=== PATIENT | female | born 1960 | race Caucasian/White ===

== ENCOUNTER → 2016-03-14 | Outpatient (CLI) | payer BC ==
[~2016-03-14] MED LIST: ALBU1AER9 INH; ALPR-411 PO; AMT/50 PO; ASPI-461 PO; ATOR-26 PO; CHOL100010 PO; CYAN100048 PO; DOXYCYCLINE PO; ERGO500037 PO; FLUT0.15; FLX10 PO; INSU1.2I SQ; LEVO175T3 PO; LISI-787 PO; METF1000 PO; METO25TA3 PO; MOME50SP5; NVLG SQ; NVLGI7030 SC; PRAV20TA PO; PRLSR20 PO; RANI150T2 PO; RBTDAC10 PO; SITA100T3 PO; SUMA25TA12 PO; VENL37.593 PO
== END | disposition home or self-care (01) ==
LOC: C.CPL 10:04
PROVIDERS: ATTEND Obstetrics & Gynecology
DX: Z01.810 Encounter for preprocedural cardiovascular examination (principal); N95.0 Postmenopausal bleeding

== ENCOUNTER 2016-03-29 09:24 | Day surgery (SDC) | payer BC, OTHER ==
--- NOTE | 2016-03-17 10:24 | HISTORY & PHYSICAL EXAMINATION ---
DATE OF ADMISSION: 03/29/2016 CHIEF COMPLAINT: Vaginal bleeding, abnormal transvaginal ultrasound. HISTORY OF PRESENT ILLNESS: The patient is a 55-year-old nullip. Her general health is complicated by diabetes, high blood pressure, hypothyroidism and elevated cholesterol. She is on insulin and Toujeo to control the diabetes, diabetic about 10 years. Underwent menopause age 40, had no bleeding until recently she had 1-2 days of bleeding and some mild cramping. Transvaginal ultrasound was performed on 02/14/2016, showed an endometrial stripe of 5+ mm with fluid in the endometrial cavity, small fibroid. Presently being scheduled for an outpatient D and C. PAST SURGICAL HISTORY: She has had bilateral knee arthroscopies. She had a right shoulder arthroscopy. PAST MEDICAL HISTORY: Her medical condition is complicated by diabetes, high blood pressure, hypothyroidism and elevated cholesterol. ALLERGIES: SHE IS ALLERGIC TO ERYTHROMYCIN AND LATEX. SOCIAL HISTORY: No smoking. No excessive alcohol intake. Works for [employer]. FAMILY HISTORY: Mom at age 75 of bowel cancer. Father at age 63, ruptured aortic aneurysm. Three brothers and 2 sisters in good health. REVIEW OF SYSTEMS: She does have a history of migraine headaches. No history of frequent or severe ear infections, nosebleed, sore throats, kidney or bladder infections. PHYSICAL EXAMINATION: GENERAL: Well-developed, well-nourished 55-year-old white female, alert, oriented x3 and cooperative, no acute distress, appears her stated age. EYES: Conjunctivae are pink, sclerae white, no evidence of jaundice. EARS: Normal light reflex bilaterally. NOSE: Normal mucosa. Septum is midline. There are no polyps. THROAT: No erythema or evidence of infection. Teeth are in good state of repair. HEAD: Normocephalic, normal distribution of hair. NECK: Supple. Trachea midline. Thyroid is not enlarged. There is no adenopathy appreciated. Both carotids are of good intensity. CHEST: Clear to auscultation and percussion. No wheezes, rales or rhonchi appreciated. HEART: Regular rhythm. S1 and S2 are normal. BREASTS: Normal. ABDOMEN: Soft and nontender. PELVIC: Reveals atrophic vaginitis, normal appearing cervix. Uterus is normal size. There are no adnexal masses. MUSCULOSKELETAL: Reveals no calf tenderness. IMPRESSIONS OF THIS CASE: Diabetes, high blood pressure, hypothyroidism, elevated cholesterol, postmenopausal bleeding, abnormal transvaginal ultrasound. ANDREA
[2016-03-17 10:43] LABS: HEMATOCRIT 36.9 % (37-47); MEAN CELL VOLUME 88.3 fL (80-100); MEAN CORPUSCULAR HEMOGLOBIN 28.7 pg (25-34); MEAN CORPUSCULAR HGB CONC 32.5 g/dl (32-36); MEAN PLATELET VOLUME 10.8 fL (7.4-10.4); PLATELET COUNT 343 K/uL (130-400); RED BLOOD COUNT 4.18 M/uL (4.2-5.4); WHITE BLOOD COUNT 12.73 K/uL (4.8-10.8)
[2016-03-17 11:20] LABS: BASO % 0.3 %; BASO ABS # 0.04 K/uL (0-0.2); COMPLETE YES; EOS % 2.3 %; IG% 0.5 %; LYMPH % 40.3 %; LYMPH ABS # 5.13 K/uL (1.2-3.4); MONO % 4.6 %
[2016-03-22 09:24] VITALS: BMI 54.0
[~2016-03-29] VITALS: Ht 154.9 cm; Wt 133.2 kg
[~2016-03-29 09:24] MED LIST changes: -ALPR-411 PO; -CHOL100010 PO; -DOXYCYCLINE PO; +LACTATED RINGER'S 1000ML 1,000 ML IV SCH; -METO25TA3 PO; -MOME50SP5; -NVLGI7030 SC; -PRAV20TA PO; -RBTDAC10 PO; -SITA100T3 PO; -VENL37.593 PO
[2016-03-29] MEDS ORDERED: LIDOCAINE HCL 2% 2 ML VIAL (20MG/ML) ONE (09:53)
[2016-03-29] MEDS ORDERED: OXYTOCIN INJ 10 UNITS/ML VIAL ONE (09:53)
[2016-03-29] MEDS ORDERED: DEXAMETHASONE SOD INJ 4 MG/ML VIAL ONE (09:53)
[2016-03-29] MEDS ORDERED: KETOROLAC TROMETHAMINE 30 MG/ML VIAL ONE (09:53)
[2016-03-29] MEDS ORDERED: PROPOFOL IV EMULSION 10 MG/ML 20 ML VIAL IV ONE (09:53)
[2016-03-29] MEDS ORDERED: MIDAZOLAM HCL 1 MG/ML 2ML VIAL ONE (09:53)
[2016-03-29] MEDS ORDERED: FENTANYL CITRATE INJ 50 MCG/1 ML 2 ML VIAL ONE (09:53)
[2016-03-29] MEDS ORDERED: ONDANSETRON INJ 2 MG/ML 2 ML VIAL ONE (09:53)
[2016-03-29 10:08] VITALS: BP 140/71; PULSE 108; TEMP 36.7; O2SAT 95; Ht 154.9 cm; Wt 133.2 kg
[2016-03-29] MEDS ORDERED: NovoLIN-R INSULIN PER UNIT CHARGE ONE (10:11)
[2016-03-29] MEDS ORDERED: NURSING VERBAL MED ORDER ONE (10:15)
[2016-03-29] MEDS ORDERED: NovoLIN-R INSULIN PER UNIT CHARGE SQ SCH (10:15)
--- NOTE | 2016-03-29 10:41 | History & Physical Bridge Note ---
H&P Re-Evaluation Bridge Note: I have examined the patient, reviewed the History & Physical and in the interval since the performance of the History & Physical I have noted the following changes of clinical significance: No changes noted
[2016-03-29] MEDS ORDERED: LACTATED RINGER'S 1000ML 1,000 ML IV PRN (10:46)
[2016-03-29] MEDS ORDERED: ROCURONIUM BROMIDE 10 MG/ML 5 ML VIAL ONE (10:56)
[2016-03-29] MEDS ORDERED: ONDANSETRON INJ 2 MG/ML 2 ML VIAL IV PRN ×2 (11:00→11:45)
[2016-03-29] MEDS ORDERED: KETOROLAC TROMETHAMINE 30 MG/ML VIAL IV. PRN ×2 (11:00→11:45)
[2016-03-29] MEDS ORDERED: FENTANYL CITRATE INJ 50 MCG/1 ML 2 ML VIAL IV PRN (11:00)
[2016-03-29] MEDS ORDERED: SODIUM CHLORIDE 0.9% 1000ML 1,000 ML IV SCH (11:38)
--- NOTE | 2016-03-29 11:44 | [facility] Post Operative Brief Note ---
Immediate Operative Summary Operative Date Mar 29, 2016. Pre-Operative Diagnosis post menopausal bleeding Post-Operative Diagnosis uterus sounded to 8 cm Procedure(s) Performed dilatation of cervix sharp curettage of endometrial cavity Surgeon sundeep Electrical Engineer Mep Surgeon(s) none Estimated Blood Loss 5 ml Findings small amount of endometrial curettings Specimens uterine curettings Complication(s) None Disposition Recovery Room / PACU
[2016-03-29] MEDS ORDERED: HYDROCODONE/ACETAMOPHEN 5/325MG TAB PO PRN ×4 (11:45)
[2016-03-29] MEDS ORDERED: OXYCODONE/ACETAMINOPHEN 5-325 TAB PO PRN ×2 (11:45)
[2016-03-29] MEDS ORDERED: IBUPROFEN 600 MG TAB PO PRN (11:45)
--- NOTE | 2016-03-29 11:46 | Discharge Instructions ---
Discharge Instructions Admission Reason for Admission: Post Menopausal Bleeding Discharge Discharge Diagnosis / Problem: same as above Discharge Goals Goal(s): Routine recovery after surgery Activity Recommendations Activity Limitations: as noted below ACTIVITY RECOMMENDATIONS: * Avoid tampons, douching, hot tubs, pools, and intercourse until bleeding has stopped. * May shower as usual. * No strenuous activity for 24-48 hours. After 24-48 hours, you may do anything you feel like doing (driving and sports are okay). SPECIAL CARE INSTRUCTIONS: Special Diet: * Mild nausea may occur in the immediate post-operative period. * Take clear liquids such as tea, cola or bouillon until all nausea has subsided; you may then resume your normal diet. Special Care: * Light bleeding and vaginal spotting can last from a few days to 3-4 weeks. Call your doctor if bleeding becomes heavier than the heaviest part of your period. * Check your temperature twice a day for one week. If it goes above 100.4 degrees Fahrenheit (38.0 Celsius), notify your doctor. * Call your doctor's office for an appointment for 6 weeks after your surgery. FOLLOW-UP VISIT: Call your doctor's office for an appointment for 6 weeks after your surgery. . Current Hospital Diet Patient's current hospital diet: Discharge Diet Recommended Diet: Regular Diet Procedures Procedures Performed: dilatation of cervix sharp curettage of endometrial cavity Pending Studies Studies pending at discharge: no Medical Emergencies . Who to Call and When: Medical Emergencies: If at any time you feel your situation is an emergency, please call 911 immediately. . Non-Emergent Contact Non-Emergency issues call your: Box Feeder Call Non-Emergent contact if: temperature is above 100.5 . . "Provider Documentation" section prepared by Jeffrey Hudson. VTE Core Measure Inpt VTE Proph given/why not?: Treatment not indicated
--- NOTE | 2016-03-29 12:23 | OPERATIVE REPORT ---
DATE OF OPERATION: 03/29/2016 INDICATIONS FOR SURGERY: Postmenopausal bleeding, abnormal transvaginal ultrasound. PREOPERATIVE DIAGNOSIS: Postmenopausal bleeding, abnormal transvaginal ultrasound. POSTOPERATIVE DIAGNOSIS: Same. Uterus sounded to 8 cm. PROCEDURE: D\T\C. SURGEON: Dr. Hudson. ESTIMATED BLOOD LOSS: 5 mL. ANESTHESIA: General. OPERATIVE FINDINGS AND PROCEDURE: The patient was brought to the OR table, correctly identified by armband and conversation. General anesthesia was administered. Perineum and vagina were painted with Betadine paint, draped in usual sterile fashion. Weighted speculum was placed in the posterior vagina. Due to the patient's weight we had difficulty visualizing the cervix. We had to use a long weighted speculum along with retractor. I first emptied the bladder with metal catheter. I then grabbed the cervix at 12 o'clock sounded the uterus to 8 cm. Cervix was then dilated with graduated dilators. A small sharp serrated curette was placed in the uterine cavity. All 4 quadrants of the uterus were thoroughly and systematically cureted. This was productive of a small amount of solid tissue which was submitted for pathological evaluation. After thorough curettage of the entire endometrial cavity, the procedure was terminated. Instruments were removed. Hemostasis was good. The patient tolerated the procedure well. I attest to the content of the Intraoperative Record and any orders documented therein. Any exceptio ns are noted below.
--- NOTE | 2016-03-29 12:34 | Anesthesiology Progress Note ---
Anesthesia Post Op Note Date & Time Mar 29, 2016 at 12:33 Vital Signs Pain Intensity: 5 Vital Signs Past 12 Hours Date Time Temp Pulse Resp B/P Pulse Ox O2 Delivery O2 Flow Rate FiO2 03/29/16 12:25 36.6 85 17 157/67 99 Room Air 03/29/16 12:15 85 18 149/98 99 Room Air 03/29/16 12:05 82 16 152/84 100 Mask 10 03/29/16 11:55 36.3 93 16 141/80 100 Mask 10 03/29/16 10:08 36.7 108 22 140/71 95 Room Air Notes Mental Status: alert / awake / arousable, participated in evaluation Pt Amnestic to Procedure: Yes Nausea / Vomiting: adequately controlled Pain: adequately controlled Airway Patency, RR, SpO2: stable & adequate BP & HR: stable & adequate Hydration State: stable & adequate Anesthetic Complications: no major complications apparent
[2016-03-29 12:40] VITALS: BP 140/66; PULSE 75; TEMP 36.6; O2SAT 97
[2016-03-29 13:05] VITALS: BP 157/71; PULSE 87; O2SAT 97
[2016-03-29 13:25] VITALS: BP 149/73; PULSE 79; TEMP 36.9; O2SAT 97
[2016-11-22] MEDS ORDERED: METO25TA3 PO (10:15)
[2016-11-22] MEDS ORDERED: CHOL100010 PO (10:15)
[2016-11-22] MEDS ORDERED: DOXYCYCLINE PO (10:18)
== END 2016-03-29 13:30 | disposition home or self-care (01) ==
LOC: C.ACU 09:24
PROVIDERS: ATTEND Obstetrics & Gynecology
DX: D25.9 Leiomyoma of uterus, unspecified (principal); E11.9 Type 2 diabetes mellitus without complications; E78.00 Pure hypercholesterolemia, unspecified; E03.9 Hypothyroidism, unspecified; Z79.4 Long term (current) use of insulin; Z98.890 Other specified postprocedural states

== ENCOUNTER → 2016-03-30 | Day surgery (SDC) | payer BC ==
[~2016-03-30] MED LIST changes: +BUPIVACAINE 0.5 % 5 MG/1 ML MPF 30ML VIAL ONE; +CHOL100010 PO; +DOXYCYCLINE PO; -LACTATED RINGER'S 1000ML 1,000 ML IV SCH; +LIDOCAINE HCL 2% LOCAL 20 ML VIAL ONE; +METO25TA3 PO
== END | disposition home or self-care (01) ==
LOC: C.PAT 10:43 → EDSTATUS 13:00
PROVIDERS: ATTEND Obstetrics & Gynecology
DX: N95.0 Postmenopausal bleeding (principal)

== ENCOUNTER → 2016-04-01 | Outpatient (CLI) | payer BC ==
[~2016-04-01] MED LIST changes: -BUPIVACAINE 0.5 % 5 MG/1 ML MPF 30ML VIAL ONE; -LIDOCAINE HCL 2% LOCAL 20 ML VIAL ONE
[2016-04-01 10:41] LABS: HEMATOCRIT 35.9 % (37-47); MEAN CELL VOLUME 87.8 fL (80-100); MEAN CORPUSCULAR HEMOGLOBIN 28.9 pg (25-34); MEAN PLATELET VOLUME 10.6 fL (7.4-10.4); PLATELET COUNT 338 K/uL (130-400); RED BLOOD COUNT 4.09 M/uL (4.2-5.4)
[2016-04-01 11:16] LABS: MEAN CORPUSCULAR HGB CONC 32.9 g/dl (32-36)
[2016-04-01 11:19] LABS: BASO % 0.3 %; BASO ABS # 0.04 K/uL (0-0.2); COMPLETE YES; EOS % 2.1 %; IG% 0.5 %; LYMPH % 44.6 %; LYMPH ABS # 5.75 K/uL (1.2-3.4); MONO % 6.3 %; NEUT % 46.2 %
== END | disposition home or self-care (01) ==
LOC: C.LAB 10:13
PROVIDERS: ATTEND Family Medicine
DX: A08.4 Viral intestinal infection, unspecified (principal)

== ENCOUNTER → 2016-05-17 | Outpatient (CLI) | payer BC ==
--- NOTE | 2016-05-17 18:34 | DIAGNOSTIC IMAGING REPORT ---
SACRUM AND SACROILIAC JOINTS 3 VIEWS CLINICAL HISTORY: Fall. Low back pain. FINDINGS: 3 views of the sacrum and sacroiliac joints are correlated with pelvic CT dated 01/25/2015. The skeletal structures are osteopenic. There is no radiographic evidence of sacral fracture. Sclerotic degenerative change and mild vacuum phenomenon is seen involving the sacroiliac joints. No bony erosion is suspected. The remainder of the visualized bony pelvis appears intact. Enthesophytes arise from the anterior superior iliac spine bilaterally. Phleboliths are observed in the pelvis. IMPRESSION: 1. No acute bony abnormality is seen involving the sacrum or sacroiliac joints. 2. Degenerative change as above. Electronically signed by: Chilango Vora M.D. 05/17/2016 6:32 PM Dictated Date/Time: 05/17/2016 6:31 PM
--- NOTE | 2016-05-17 19:08 | DIAGNOSTIC IMAGING REPORT ---
LUMBAR SPINE 5 VIEWS CLINICAL HISTORY: Fall with low back pain. FINDINGS: Five views of the lumbar spine are correlated with abdominal CT dated 01/25/2015. The skeletal structures are osteopenic. There is no radiographic evidence of fracture or malalignment. Vertebral body height and alignment are maintained. The transverse and spinous processes are intact. There is no evidence of spondylolysis. Tiny anterior osteophytes are seen throughout. Minimal facet arthropathy is noted in the lower lumbar spine. The disc spaces appear preserved. The visualized bony pelvis appears intact. Mild sclerotic change is noted in the sacroiliac joints. There is a nonobstructed abdominal bowel gas pattern. Phleboliths are present in the pelvis. IMPRESSION: 1. No acute bony abnormality seen involving the lumbosacral spine. 2. Osteopenia and mild spondylotic change as above. Dictated: 05/17/2016 6:39 PM Transcribed: 05/17/2016 7:08 PM Jing Electronically signed by: Chilango Vora M.D. 05/17/2016 7:13 PM Dictated Date/Time: 05/17/2016 6:39 PM
== END | disposition home or self-care (01) ==
LOC: C.RAD 17:25
PROVIDERS: ATTEND Family Medicine
DX: E11.9 Type 2 diabetes mellitus without complications (principal); T14.8 Other injury of unspecified body region; W19.XXXA Unspecified fall, initial encounter; M85.88 Other specified disorders of bone density and structure, other site

== ENCOUNTER → 2016-05-26 | Outpatient (CLI) | payer BC ==
--- NOTE | 2016-05-26 18:14 | DIAGNOSTIC IMAGING REPORT ---
CHEST 2 VIEWS ROUTINE CLINICAL HISTORY: CHEST PAIN, WENT TO LAB FIRST COMPARISON STUDY: No previous studies for comparison. FINDINGS: The bones soft tissues and hemidiaphragms are normal. The cardiomediastinal silhouette is normal. The lungs are clear. The pulmonary vasculature is normal. IMPRESSION: Negative chest. Electronically signed by: Catrachito Magallanes M.D. 05/26/2016 6:13 PM Dictated Date/Time: 05/26/2016 6:12 PM
[2016-05-26 19:17] LABS: CKMB/CK RATIO 3.5 (0-3.0)
[2016-05-29 12:23] LABS: C-REACTIVE PROT HIGHSEN 4.4 MG/L
== END | disposition home or self-care (01) ==
LOC: C.RAD 17:39
PROVIDERS: ATTEND Family Medicine
DX: R07.9 Chest pain, unspecified (principal)

== ENCOUNTER → 2016-07-17 | Outpatient (CLI) | payer BC ==
--- NOTE | 2016-07-17 19:07 | DIAGNOSTIC IMAGING REPORT ---
CHEST 2 VIEWS ROUTINE CLINICAL HISTORY: Dyspnea, cough dyspnea COMPARISON STUDY: 05/26/2016 FINDINGS: The bones soft tissues and hemidiaphragms are normal. The cardiomediastinal silhouette is normal. The lungs are clear. The pulmonary vasculature is normal. IMPRESSION: Negative chest. Electronically signed by: Catrachito Magallanes M.D. 07/17/2016 7:06 PM Dictated Date/Time: 07/17/2016 7:05 PM
== END | disposition home or self-care (01) ==
LOC: C.RAD 18:47
PROVIDERS: ATTEND Family Medicine
DX: R05 Cough (principal); R06.00 Dyspnea, unspecified

== ENCOUNTER → 2016-12-06 | Day surgery (SDC) | payer BC ==
[2016-11-22 10:17] VITALS: BMI 54.0
[~2016-12-06] VITALS: Ht 154.9 cm; Wt 133.2 kg
[~2016-12-06] MED LIST changes: -ERGO500037 PO; +LIDOCAINE HCL 2% 2 ML VIAL (20MG/ML) ONE; +PROPOFOL IV EMULSION 10 MG/ML 20 ML VIAL IV ONE; +SODIUM CHLORIDE 0.9% 500ML 500 ML IV ONE
[2016-12-06 12:55] VITALS: Ht 154.9 cm; Wt 133.2 kg
[2016-12-06 13:11] VITALS: TEMP 37.1
--- NOTE | 2016-12-06 13:25 | Endo History and Physical ---
History & Physical Date of Service: Dec 06, 2016. Chief Complaint: family hx of colon cancer, mother Referring Physician: Dr. Langston History of Present Illness screening colonscopy; second exam, nothing found on initial exam per pt ( Dr Justin) Past Medical History Asthma, Anxiety, High Cholesterol, Hypertension, Thyroid Disease, Depression Past Surgical History Hx Cardiac Surgery: No Hx Internal Defibrillator: No Hx Pacemaker: No Hx Abdominal Surgery: Yes (D&C) Hx of Implantable Prosthesis: No Hx Post-Op Nausea and Vomiting: No Hx Cancer Surgery: No Hx Thoracic Surgery: No Hx Orthopedic: Yes (RT/LEFT KNEE ARTHROSCOPY, RT SHOULDER ARTHROSCOPY) Hx Urinary Tract Surgery: No Family History Polyp, IBD Social History Smoking Status: Never Smoker Hx Substance Use: No Hx Alcohol Use: No Allergies Coded Allergies: Amoxicillin (Verified Allergy, Intermediate, hives, 12/06/16) Latex1 -Allergic Contact Dermititis (Verified Allergy, Mild, RASH, 12/06/16 ) Sulfa Antibiotics (Verified Allergy, Mild, RASH, 12/06/16) Clarithromycin (Verified Adverse Reaction, Mild, HEART RACES, 12/06/16) Uncoded Allergies: NYQUIL NIGHTTIME COLD/FLU MEDICINE (Allergy, Mild, HIVES, 03/22/16) WHEAT BREAD (Adverse Reaction, Mild, itching and hives, 03/22/16) ARNOLD BREAD Current Medications Reported Home Medications Medications Dose Route/Sig Max Daily Dose Days Date Category Dose Instructions [Doxycycline] 1 Tab PO BID 11/22/16 Reported Vitamin D (Cholecalciferol) 1,000 Unit Tab 1 Tab PO QPM 11/22/16 Reported Toprol-Xl (Metoprolol Succinate) 25 Mg Tabcr 25 Mg PO HS 11/22/16 Reported Aspirin 81 Mg Tab 81 Mg PO QPM 03/22/16 Reported Vitamin B-12 (Cyanocobalamin) 1,000 Mcg Sub 1,000 Mcg PO QAM 03/22/16 Reported Novolog (Insulin Aspart) 100 Units/Ml Inj 45 Units SQ QID 03/22/16 Reported ALSO MAY INCREASE PER SLIDING SCALE Toujeo Solostar (Insulin Glargine) 300 Unit/Ml Inj 150 Units SQ QPM 03/22/16 Reported Levothyroxine Sodium 175 Mcg Tab 1 Tab PO QAM 01/04/15 Reported Zestoretic 20MG/12.5MG (HCTZ/Lisinopril) Tab 2 Tabs PO QAM 01/04/15 Reported Flonase Allergy Relief (Fluticasone Propionate (Nasal)) 50 Mcg/Act Spr 2 Sprays NA BID 01/04/15 Reported Lipitor (Atorvastatin Calcium) 80 Mg Tab 1 Tab PO HS 01/04/15 Reported Proair Hfa (Albuterol) Aers 1 Puff INH QID PRN 01/04/15 Reported Imitrex (Sumatriptan Succinate) 25 Mg Tab 25 Mg PO PRN PRN 01/04/15 Reported Ranitidine HCl 150 Mg Tab 150 Mg PO BID 08/11/13 Reported Cyclobenzaprine HCl 10 Mg Tab 10 Mg PO BID PRN 08/11/13 Reported Glucophage (Metformin Hcl) 1,000 Mg Tab 1,000 Mg PO BID 06/26/12 Reported Amitriptyline (Amitriptyline Hcl) 50 Mg Tab 100 Mg PO HS 05/28/09 Reported Prilosec (Omeprazole) 20 Mg Capcr 20 Mg PO QAM 05/28/09 Reported Vital Signs Weight (Kilograms): 133.18 Height (Feet): 5 Height (Inches): 1 Date Time Temp Pulse Resp B/P (MAP) Pulse Ox O2 Delivery O2 Flow Rate FiO2 12/06/16 13:11 37.1 108 20 159/64 (95) 95 Room Air Physical Exam AAOx3 Nls1s2 Lungs CTA Abd soft NT/ND + BS - CCE Assessment and Plan colonoscopy
--- NOTE | 2016-12-06 14:14 | GI REPORT ---
Procedure Date: 12/06/2016 1:30 PM Procedure: Colonoscopy Indications: Family history of colon cancer in a first-degree relative Medicines: Propofol per Anesthesia Complications: No immediate complications. Estimated blood loss: None. Estimated Blood Loss: Estimated blood loss: none. Procedure: Pre-Anesthesia Assessment: - Prior to the procedure, a History and Physical was performed, and patient medications and allergies were reviewed. The patient's tolerance of previous anesthesia was also reviewed. The risks and benefits of the procedure and the sedation options and risks were discussed with the patient. All questions were answered, and informed consent was obtained. Prior Anticoagulants: The patient has taken no previous anticoagulant or antiplatelet agents. ASA Grade Assessment: III - A patient with severe systemic disease. After reviewing the risks and benefits, the patient was deemed in satisfactory condition to undergo the procedure. After I obtained informed consent, the scope was passed under direct vision. Throughout the procedure, the patient's blood pressure, pulse, and oxygen saturations were monitored continuously. The On-site loaner was introduced through the anus and advanced to the cecum, identified by the appendiceal orifice, ileocecal valve and palpation. The colonoscopy was performed without difficulty. The patient tolerated the procedure well. The quality of the bowel preparation was good. Findings: The perianal and digital rectal examinations were normal. Pertinent negatives include normal sphincter tone, no palpable rectal lesions and no anal lesion or abnormality was detected. Many small-mouthed diverticula were found in the sigmoid colon. Non-bleeding internal hemorrhoids were found during retroflexion. The hemorrhoids were mild. The exam was otherwise without abnormality. The terminal ileum appeared normal. Impression: - Diverticulosis in the sigmoid colon. - Non-bleeding internal hemorrhoids. - The examination was otherwise normal. - The examined portion of the ileum was normal. - No specimens collected. Recommendation: - Discharge patient to home (ambulatory). - Resume regular diet. - Continue present medications. - Repeat colonoscopy in 5 years for surveillance. - Return to referring physician as previously scheduled. MD Aristides Munoz MD 12/06/2016 2:14:17 PM This report has been signed electronically. Note Initiated On: 12/06/2016 1:30 PM I attest to the content of the Intraoperative Record and orders documented therein, exceptions below
--- NOTE | 2016-12-06 14:17 | Discharge Instructions ---
Endoscopy Patient Instructions Date / Procedure(s) Performed Dec 06, 2016. Colonoscopy Allergy Information Coded Allergies: Amoxicillin (Verified Allergy, Intermediate, hives, 12/06/16) Latex1 -Allergic Contact Dermititis (Verified Allergy, Mild, RASH, 12/06/16 ) Sulfa Antibiotics (Verified Allergy, Mild, RASH, 12/06/16) Clarithromycin (Verified Adverse Reaction, Mild, HEART RACES, 12/06/16) Uncoded Allergies: NYQUIL NIGHTTIME COLD/FLU MEDICINE (Allergy, Mild, HIVES, 03/22/16) WHEAT BREAD (Adverse Reaction, Mild, itching and hives, 03/22/16) ARNOLD BREAD Discharge Date / Findings Dec 06, 2016. diverticulosis, hemorrhoids Medication Instructions Stopped Medication(s): stopped all supplements Restart Stopped Medication(s): Reported Home Medications Medications Dose Route/Sig Max Daily Dose Days Date Category Dose Instructions [Doxycycline] 1 Tab PO BID 11/22/16 Reported Vitamin D (Cholecalciferol) 1,000 Unit Tab 1 Tab PO QPM 11/22/16 Reported Toprol-Xl (Metoprolol Succinate) 25 Mg Tabcr 25 Mg PO HS 11/22/16 Reported Aspirin 81 Mg Tab 81 Mg PO QPM 03/22/16 Reported Vitamin B-12 (Cyanocobalamin) 1,000 Mcg Sub 1,000 Mcg PO QAM 03/22/16 Reported Novolog (Insulin Aspart) 100 Units/Ml Inj 45 Units SQ QID 03/22/16 Reported ALSO MAY INCREASE PER SLIDING SCALE Toujeo Solostar (Insulin Glargine) 300 Unit/Ml Inj 150 Units SQ QPM 03/22/16 Reported Levothyroxine Sodium 175 Mcg Tab 1 Tab PO QAM 01/04/15 Reported Zestoretic 20MG/12.5MG (HCTZ/Lisinopril) Tab 2 Tabs PO QAM 01/04/15 Reported Flonase Allergy Relief (Fluticasone Propionate (Nasal)) 50 Mcg/Act Spr 2 Sprays NA BID 01/04/15 Reported Lipitor (Atorvastatin Calcium) 80 Mg Tab 1 Tab PO HS 01/04/15 Reported Proair Hfa (Albuterol) Aers 1 Puff INH QID PRN 01/04/15 Reported Imitrex (Sumatriptan Succinate) 25 Mg Tab 25 Mg PO PRN PRN 01/04/15 Reported Ranitidine HCl 150 Mg Tab 150 Mg PO BID 08/11/13 Reported Cyclobenzaprine HCl 10 Mg Tab 10 Mg PO BID PRN 08/11/13 Reported Glucophage (Metformin Hcl) 1,000 Mg Tab 1,000 Mg PO BID 06/26/12 Reported Amitriptyline (Amitriptyline Hcl) 50 Mg Tab 100 Mg PO HS 05/28/09 Reported Prilosec (Omeprazole) 20 Mg Capcr 20 Mg PO QAM 05/28/09 Reported Reported Home Medications Medications Dose Route/Sig Max Daily Dose Days Date Category Dose Instructions [Doxycycline] 1 Tab PO BID 11/22/16 Reported Vitamin D (Cholecalciferol) 1,000 Unit Tab 1 Tab PO QPM 11/22/16 Reported Toprol-Xl (Metoprolol Succinate) 25 Mg Tabcr 25 Mg PO HS 11/22/16 Reported Aspirin 81 Mg Tab 81 Mg PO QPM 03/22/16 Reported Vitamin B-12 (Cyanocobalamin) 1,000 Mcg Sub 1,000 Mcg PO QAM 03/22/16 Reported Novolog (Insulin Aspart) 100 Units/Ml Inj 45 Units SQ QID 03/22/16 Reported ALSO MAY INCREASE PER SLIDING SCALE Toujeo Solostar (Insulin Glargine) 300 Unit/Ml Inj 150 Units SQ QPM 03/22/16 Reported Levothyroxine Sodium 175 Mcg Tab 1 Tab PO QAM 01/04/15 Reported Zestoretic 20MG/12.5MG (HCTZ/Lisinopril) Tab 2 Tabs PO QAM 01/04/15 Reported Flonase Allergy Relief (Fluticasone Propionate (Nasal)) 50 Mcg/Act Spr 2 Sprays NA BID 01/04/15 Reported Lipitor (Atorvastatin Calcium) 80 Mg Tab 1 Tab PO HS 01/04/15 Reported Proair Hfa (Albuterol) Aers 1 Puff INH QID PRN 01/04/15 Reported Imitrex (Sumatriptan Succinate) 25 Mg Tab 25 Mg PO PRN PRN 01/04/15 Reported Ranitidine HCl 150 Mg Tab 150 Mg PO BID 08/11/13 Reported Cyclobenzaprine HCl 10 Mg Tab 10 Mg PO BID PRN 08/11/13 Reported Glucophage (Metformin Hcl) 1,000 Mg Tab 1,000 Mg PO BID 06/26/12 Reported Amitriptyline (Amitriptyline Hcl) 50 Mg Tab 100 Mg PO HS 05/28/09 Reported Prilosec (Omeprazole) 20 Mg Capcr 20 Mg PO QAM 05/28/09 Reported Provider Instructions Activity Restrictions - No exercising or heavy lifting for 24 hours. - Do not drink alcohol the day of the procedure. - Do not drive a car or operate machinery until the day after the procedure. - Do not make any important decisions or sign important papers in 24 hours after the procedure. Following Day: - Return to full activity which may include returning to work/school. Diet Start your diet with liquids and light foods (jello, soup, juice, toast). Then eat your usual diet if not nauseated. Treatment For Common After Affects For mild abdominal pain, bloating, or excessive gas: - Rest - Eat lightly - Lie on right side Follow-Up Information Follow-up with Dr. Langston as scheduled Anesthesia Information What You Should Know You have had a procedure that required some medicine to reduce anxiety and discomfort. This treatment is called moderate sedation. After receiving the treatment, you may be sleepy, but you will be able to breathe on your own. The effects of the treatment may last for several hours. Follow these instructions along with Activity/Diet recommendations noted above: * Do NOT do anything where dizziness or clumsiness would be dangerous. * Rest quietly at home today, then you can be up and about tomorrow. * Have a responsible person stay with you the rest of today. * You may have had an I.V. today. If so, you may take the dressing off later today. Recommendations Call your doctor if: * Trouble breathing * Continuous vomiting for more than 24 hours * Temperature above 101 degrees * Severe abdominal pain or bloating * Pain not relieved by pain medicine ordered * There is increased drainage or redness from any incision * A large amount of rectal bleeding greater than 2-3 tablespoons. (If you had a polyp/s removed or have hemorrhoids, a small amount of blood - from the rectum is to be expected.) * You have any unanswered questions or concerns. IN THE EVENT OF A SERIOUS EMERGENCY, GO TO THE NEAREST EMERGENCY ROOM Your discharge instructions were prepared by provider Aristides Gray. Patient Instructions Signature Page Alexandria Smith Patient (or Guardian) Signature/Date: I have read and understand the instructions given to me by my caregivers. Caregiver/RN/Doctor Signature/Date: The above-named patient and/or guardian has received patient instructions on this date. + Original Patient Signature Page (only) stays with chart. Please make copy for patient.
--- NOTE | 2016-12-06 14:22 | Anesthesiology Progress Note ---
Anesthesia Post Op Note Date & Time Dec 06, 2016 at 14:22 Vital Signs Pain Intensity: 0 Vital Signs Past 12 Hours Date Time Temp Pulse Resp B/P (MAP) Pulse Ox O2 Delivery O2 Flow Rate FiO2 12/06/16 14:20 96 20 144/76 (98) 98 Room Air 12/06/16 14:15 97 20 134/66 (88) 96 Room Air 12/06/16 14:07 97 20 118/54 (75) 97 Room Air 12/06/16 13:11 37.1 108 20 159/64 (95) 95 Room Air Notes Mental Status: alert / awake / arousable, participated in evaluation Pt Amnestic to Procedure: Yes Nausea / Vomiting: adequately controlled Pain: adequately controlled Airway Patency, RR, SpO2: stable & adequate BP & HR: stable & adequate Hydration State: stable & adequate Anesthetic Complications: no major complications apparent
[2016-12-06 14:32] VITALS: BP 139/82; PULSE 95; O2SAT 98
== END | disposition home or self-care (01) ==
LOC: C.GI 11:55
PROVIDERS: ATTEND Internal Medicine Gastroenterology
DX: Z12.11 Encounter for screening for malignant neoplasm of colon (principal); Z80.0 Family history of malignant neoplasm of digestive organs; K57.30 Diverticulosis of large intestine without perforation or abscess without bleeding; K64.8 Other hemorrhoids; J45.909 Unspecified asthma, uncomplicated; F41.9 Anxiety disorder, unspecified; E78.00 Pure hypercholesterolemia, unspecified; I10 Essential (primary) hypertension; F32.9 Major depressive disorder, single episode, unspecified; E07.9 Disorder of thyroid, unspecified; Z79.899 Other long term (current) drug therapy; Z79.82 Long term (current) use of aspirin; Z79.4 Long term (current) use of insulin; Z79.84 Long term (current) use of oral hypoglycemic drugs

== ENCOUNTER 2017-10-15 14:03 | Inpatient (IN) | payer SELFPAY ==
[~2017-10-15] VITALS: Ht 154.9 cm; Wt 123.0 kg
[~2017-10-15 14:03] MED LIST changes: -LIDOCAINE HCL 2% 2 ML VIAL (20MG/ML) ONE; -PROPOFOL IV EMULSION 10 MG/ML 20 ML VIAL IV ONE; -SODIUM CHLORIDE 0.9% 500ML 500 ML IV ONE
[2017-10-15] MEDS ORDERED: SODIUM CHLORIDE 0.9% 1000ML 1,000 ML IV SCH (14:41)
[2017-10-15] MEDS ORDERED: ALBU18002 INH (15:18)
[2017-10-15] MEDS ORDERED: AMT/50 PO (15:18)
[2017-10-15 15:21] LABS: PTT PATIENT 21.6 SECONDS (21.0-31.0)
[2017-10-15 15:29] LABS: BASO % 0.2 %; BASO ABS # 0.02 K/uL (0-0.2); EOS % 1.1 %; EOS ABS # 0.13 K/uL (0-0.5); HEMATOCRIT 34.3 % (37-47); HEMOGLOBIN 11.6 g/dL (12.0-16.0); IG# 0.05 K/uL (0.00-0.02); LYMPH % 31.7 %; LYMPH ABS # 3.92 K/uL (1.2-3.4); MEAN CELL VOLUME 86.6 fL (80-100); MEAN CORPUSCULAR HEMOGLOBIN 29.3 pg (25-34); MEAN CORPUSCULAR HGB CONC 33.8 g/dl (32-36); MEAN PLATELET VOLUME 11.2 fL (7.4-10.4); NEUT % 62.6 %; NEUT ABS # 7.76 K/uL (1.4-6.5); PLATELET COUNT 276 K/uL (130-400); RED CELL DISTRIBUTION WIDTH CV 14.9 % (11.5-14.5); RED CELL DISTRIBUTION WIDTH SD 46.6 fL (36.4-46.3); WHITE BLOOD COUNT 12.38 K/uL (4.8-10.8)
[2017-10-15 15:34] LABS: BLOOD UREA NITROGEN 21 mg/dl (7-18); CALCIUM 8.8 mg/dl (8.5-10.1); CARBON DIOXIDE 18 mmol/L (21-32); CKMB 4.9 ng/ml (0.5-3.6); CREATININE 1.49 mg/dl (0.60-1.20); GLUCOSE 682 mg/dl (70-99); POTASSIUM 4.1 mmol/L (3.5-5.1); SODIUM 120 mmol/L (136-145)
--- NOTE | 2017-10-15 15:53 | DIAGNOSTIC IMAGING REPORT ---
HEAD WITHOUT CONTRAST (CT) CLINICAL HISTORY: 57 years-old Female presenting with Stroke. TECHNIQUE: Multidetector CT imaging of the head was performed without the use of intravenous contrast. IV contrast: None. A dose lowering technique was used consistent with the principles of ALARA (as low as reasonably achievable). COMPARISON: 12/04/2014. CT DOSE (mGy.cm): The estimated cumulative dose is 638.56 mGycm. FINDINGS: Proofer Prepress topogram: Unremarkable. Ventricles and sulci normal in size. Periventricular and subcortical white matter hypoattenuation, nonspecific but likely indicative of chronic small vessel ischemic change. No mass effect or midline shift. No hemorrhage or acute territorial infarct. No extra-axial fluid collection. Paranasal sinuses and mastoid air cells clear. Calvarium intact. Intracranial atherosclerosis noted. IMPRESSION: 1. No acute intracranial abnormality. Electronically signed by: Eladio Cooney M.D. 10/15/2017 3:52 PM Dictated Date/Time: 10/15/2017 3:50 PM
[2017-10-15] MEDS ORDERED: NovoLIN-R INSULIN PER UNIT CHARGE IV STA (15:56)
[2017-10-15] MEDS ORDERED: SODIUM CHLORIDE 0.9% 500ML 500 ML IV STA (15:56)
[2017-10-15] MEDS ORDERED: ASPIRIN 81 MG CHEW PO STA (15:56)
[2017-10-15] MEDS ORDERED: ACETAMINOPHEN 325 MG TAB PO PRN (17:00)
[2017-10-15] MEDS ORDERED: MODERATE STRESS LEVEL ONE (17:15)
[2017-10-15] MEDS ORDERED: HHS GOAL RANGE 250-350 mg/dl ONE (17:15)
[2017-10-15] MEDS ORDERED: ALBUTEROL HFA 8 GM INHALER INH PRN (17:15)
[2017-10-15 18:00] VITALS: BP 178/84; PULSE 99; TEMP 37.2; BMI 50.5
[2017-10-15] MEDS ORDERED: INSULIN IV INFUSION PROTOCOL SCH (18:15)
[2017-10-15] MEDS: SODIUM CHLORIDE 0.9% 1000ML 1,000 ML IV SCH (19:29)
[2017-10-15] MEDS ORDERED: INSULIN HUMAN REGULAR IV BOLUS 3 UNIT in SYRINGE 0 ML IV SCH (19:30)
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
[2017-10-15] MEDS ORDERED: CEFTRIAXONE SOD INJ 1 GM in DEXTROSE 5% ADD-VANTAGE 50ML 50 ML IV ONE (20:00)
[2017-10-15] MEDS ORDERED: LABETALOL HCL IV 5 MG/ML 20ML IV PRN (20:00)
[2017-10-15] MEDS: INSULIN REGULAR 250 UNITS in SODIUM CHLORIDE 0.9% 250ML 250 ML IV SCH (20:03)
[2017-10-15] MEDS: AMITRIPTYLINE HCL 50 MG TAB PO SCH (20:37)
[2017-10-15] MEDS: ASPIRIN 81 MG ECTAB PO SCH (20:37)
[2017-10-15] MEDS: CHOLECALCIFEROL 1000 INTER.UNIT TAB PO SCH (20:38)
[2017-10-15] MEDS: ATORVASTATIN 40 MG TAB PO SCH (20:38)
[2017-10-15] MEDS: RANITIDINE HCL 150 MG TAB PO SCH (20:39)
[2017-10-15] MEDS: HEPARIN SOD 5000 UNIT/0.5 ML CARP SQ SCH (20:48)
[2017-10-15 20:49] VITALS: BP 169/91; O2SAT 93
[2017-10-15] MEDS: INSULIN ASPART 100 UNITS/ML 3 ML PEN SC SCH (21:00)
[2017-10-15 21:33] LABS: CALCIUM 8.6 mg/dl (8.5-10.1); CREATININE 1.41 mg/dl (0.60-1.20); POTASSIUM 3.7 mmol/L (3.5-5.1)
--- NOTE | 2017-10-15 21:57 | EMERGENCY ROOM VISIT NOTE ---
History Report prepared by Katarina: Kathia Bobby Under the Supervision of: Dr. Richie Metzger M.D. First contact with patient: 14:32 Chief Complaint: NEURO SYMPTOMS Stated Complaint: HEAVINESS IN HEAD, ARM NOT FEELING RIGHT History of Present Illness The patient is a 57 year old female who presents to the Emergency Room with complaints of neuro symptoms beginning yesterday. She notes she has some "heaviness" on the right side and back of her head but it does not feel like a headache. She also notes her arm "does not feel right" and she has some numbness. The patient states she has been fumbling things all day today, her vision has gotten worse, and she has increased frequency in urination. Pt denies LOC, headache, fevers, chills, diaphoresis, neck pain, chest pain, breathing difficulties, nausea, vomiting, abdominal pain, back pain, melena, hematochezia, weakness, lymphadenopathy, rash, or other complaints. 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 She ran out of her test strips, Metformin, and Lisinopril about 1 month ago and she does not currently see a doctor. Source of History: patient Onset: yesterday Position: head, arm (right) Quality: numbness (right arm), other ("heaviness" in her head) Associated Symptoms: + urinary symptoms (increased frequency), + numbness ( right arm) Note: Positive worsened vision Review of Systems See HPI for pertinent positives and negatives. A total of ten systems were reviewed and were otherwise negative. Past Medical & Surgical Medical Problems: (1) Anxiety (2) Depression (3) Diverticulosis Colon (W/O Ment Of Hemorrhage) (4) Fibromyalgia (5) History of migraine (6) Hypercholesteremia (7) Hypertension (8) Hypertension Nos (9) Hypothyroidism (10) Hypothyroidism Nos (11) Mixed Hyperlipidemia Surgical Problems: (1) History of arthroscopic knee surgery (2) History of arthroscopy of right shoulder (3) History of D&C Family History FH: diabetes mellitus Social History Smoking Status: Former Smoker Alcohol Use: none Marital Status: single Housing Status: lives alone Occupation Status: employed Current/Historical Medications Scheduled Amitriptyline HCl (Amitriptyline HCl), 100 MG PO HS Aspirin (Aspirin), 81 MG PO QPM Atorvastatin (Lipitor), 1 TAB PO HS Cholecalciferol (Vitamin D), 1 TAB PO QPM Cyanocobalamin (Vitamin B-12), 1,000 MCG PO QAM Insulin Aspart (Novolog), 45 UNITS SQ QID Insulin Glargine (Toujeo Solostar), 150 UNITS SQ QPM Levothyroxine Sodium (Levothyroxine Sodium), 1 TAB PO QAM Lisinopril/Hctz (Zestoretic 20MG/12.5MG), 2 TABS PO QAM Metformin Hcl (Glucophage), 1,000 MG PO BID Omeprazole (Prilosec), 20 MG PO QAM Ranitidine HCl (Ranitidine HCl), 150 MG PO BID Scheduled PRN Albuterol Sulfate (Proair Respiclick), 1 PUFF INH QID PRN for SOB/Wheezing Cyclobenzaprine HCl (Cyclobenzaprine HCl), 10 MG PO BID PRN for Muscle Spasms Allergies Coded Allergies: Amoxicillin (Verified Allergy, Severe, hives, 10/15/17) Latex1 -Allergic Contact Dermititis (Verified Allergy, Mild, RASH, 10/15/17) Sulfa Antibiotics (Verified Allergy, Mild, RASH, 10/15/17) Clarithromycin (Verified Adverse Reaction, Intermediate, HEART RACES, ) Uncoded Allergies: NYQUIL NIGHTTIME COLD/FLU MEDICINE (Allergy, Severe, HIVES, 10/15/17) WHEAT BREAD (Adverse Reaction, Severe, itching and hives, 10/15/17) ARNOLD 7 GRAIN BREAD Physical Exam Vital Signs Date Time Temp Pulse Resp B/P (MAP) Pulse Ox O2 Delivery O2 Flow Rate FiO2 10/15/17 17:03 98 20 143/74 96 Room Air 10/15/17 16:36 105 10/15/17 15:51 72 20 137/66 96 Room Air 10/15/17 14:27 96 Room Air 10/15/17 14:07 36.4 112 18 199/102 94 Room Air Physical Exam GENERAL: Awake, alert, well appearing, no distress HENT: Normocephalic, atraumatic. TM's normal. Oropharynx unremarkable. EYES: PERRL. EOMI. Normal conjunctiva. Sclera non-icteric. NECK: Supple. No nuchal rigidity. FROM. No bruit. RESPIRATORY: Breath sounds equal. No wheezes. No rhonchi. Normal respiratory effort. CARDIAC: Normal rate. Regular rhythm. No murmurs. No rubs. No JVD. GI: Soft, non distended. No tenderness to palpation. No rebound or guarding. No masses. RECTAL: Deferred. MUSCULOSKELETAL: Unremarkable. No edema. No discoloration. Gross motor strength symmetric. NEURO: Cranial nerves 2-12 grossly intact. Normal sensorium. No sensory or motor deficits noted. Speech normal. No pronator drift. Normal heel to estrada. SKIN: No rash or jaundice noted. LYMPH: No adenopathy. Medical Decision & Procedures ER Provider Diagnostic Interpretation: Radiology results as stated below per my review and radiologist interpretation: HEAD WITHOUT CONTRAST (CT) CLINICAL HISTORY: 57 years-old Female presenting with Stroke. TECHNIQUE: Multidetector CT imaging of the head was performed without the use of intravenous contrast. IV contrast: None. A dose lowering technique was used consistent with the principles of ALARA (as low as reasonably achievable). COMPARISON: 12/04/2014. CT DOSE (mGy.cm): The estimated cumulative dose is 638.56 mGycm. 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 Ventricles and sulci normal in size. Periventricular and subcortical white matter hypoattenuation, nonspecific but likely indicative of chronic small vessel ischemic change. No mass effect or midline shift. No hemorrhage or acute territorial infarct. No extra-axial fluid collection. Paranasal sinuses and mastoid air cells clear. Calvarium intact. Intracranial atherosclerosis noted. IMPRESSION: 1. No acute intracranial abnormality. Electronically signed by: Eladio Cooney M.D. 10/15/2017 3:52 PM Laboratory Results 10/15/17 15:00 Red Blood Count 3.96, Mean Corpuscular Volume 86.6, Mean Corpuscular Hemoglobin 29.3, Mean Corpuscular Hemoglobin Concent 33.8, Mean Platelet Volume 11.2, Neutrophils (%) (Auto) 62.6, Lymphocytes (%) (Auto) 31.7, Monocytes (%) (Auto) 4.0, Eosinophils (%) (Auto) 1.1, Basophils (%) (Auto) 0.2, Neutrophils # (Auto) 7.76, Lymphocytes # (Auto) 3.92, Monocytes # (Auto) 0.50, Eosinophils # (Auto) 0.13, Basophils # (Auto) 0.02 Test 10/15/17 15:00 White Blood Count 12.38 K/uL (4.8-10.8) Red Blood Count 3.96 M/uL (4.2-5.4) Hemoglobin 11.6 g/dL (12.0-16.0) Hematocrit 34.3 % (37-47) Mean Corpuscular Volume 86.6 fL (80-100) Mean Corpuscular Hemoglobin 29.3 pg (25-34) Mean Corpuscular Hemoglobin Concent 33.8 g/dl (32-36) Platelet Count 276 K/uL (130-400) Mean Platelet Volume 11.2 fL (7.4-10.4) Neutrophils (%) (Auto) 62.6 % Lymphocytes (%) (Auto) 31.7 % Monocytes (%) (Auto) 4.0 % Eosinophils (%) (Auto) 1.1 % Basophils (%) (Auto) 0.2 % Neutrophils # (Auto) 7.76 K/uL (1.4-6.5) Lymphocytes # (Auto) 3.92 K/uL (1.2-3.4) Monocytes # (Auto) 0.50 K/uL (0.11-0.59) Eosinophils # (Auto) 0.13 K/uL (0-0.5) Basophils # (Auto) 0.02 K/uL (0-0.2) RDW Standard Deviation 46.6 fL (36.4-46.3) RDW Coefficient of Variation 14.9 % (11.5-14.5) Immature Granulocyte % (Auto) 0.4 % Immature Granulocyte # (Auto) 0.05 K/uL (0.00-0.02) Prothrombin Time 10.0 SECONDS (9.0-12.0) Prothromb Time International Ratio 1.0 (0.9-1.1) Activated Partial Thromboplast Time 21.6 SECONDS (21.0-31.0) Partial Thromboplastin Ratio 0.8 Magnesium Level 1.9 mg/dl (1.8-2.4) Total Creatine Kinase 50 U/L (26-192) Creatine Kinase MB 4.9 ng/ml (0.5-3.6) Creatine Kinase MB Ratio 9.8 (0-3.0) Troponin I < 0.015 ng/ml (0-0.045) Laboratory results reviewed by me Medications Administered Medications (Trade) Dose Ordered Sig/Fabrice Route Start Time Stop Time Status Last Admin Dose Admin Sodium Chloride 1,000 ml @ 50 mls/hr Q20H IV 10/15/17 14:41 10/15/17 18:44 DC 10/15/17 15:21 50 MLS/HR Sodium Chloride 500 ml @ 999 mls/hr Q31M STAT IV 10/15/17 15:56 10/15/17 16:26 DC 10/15/17 16:17 999 MLS/HR Insulin Human Regular (novoLIN-R U-100 PER UNIT) 10 units NOW STAT IV 10/15/17 15:56 10/15/17 15:58 DC 10/15/17 16:17 10 UNITS Aspirin (Aspirin Chew) 324 mg NOW STAT PO 10/15/17 15:56 10/15/17 15:58 DC 10/15/17 16:17 324 MG ECG Per My Interpretation Indication: other (neuro symptoms) Rate (beats per minute): 101 Rhythm: sinus tachycardia Findings: LAFB, Q waves (Lateral), RBBB, other ([facility]) ED Course 1439: The patient was evaluated in room D2. A complete history and physical exam was performed. 1441: Ordered Sodium Chloride 1000 ml @ 50 mls/hr IV 1556: Ordered Aspirin 324 mg PO, Insulin Human Regular 10 units IV, Sodium Chloride 500 ml @ 999 mls/hr IV 1608: Discussed the patient's case with CORI Dennis. The patient will be evaluated for further treatment and disposition. Medical Decision Prior records/ancillary studies reviewed and summarized above. Nursing notes reviewed and agree them. The patient's history was concerning for weakness. Differential diagnosis: Etiologies such as metabolic, infection, hypo/hyperglycemia, electrolyte abnormalities, cardiac sources, intracerebral event, toxicologic, neurologic, as well as others were entertained. Physical examination: As above. ER treatment provided: IV Lock Normal saline hydration IV insulin We will asked On reassessment the patient felt better. Diagnostics interpretation by me: ECG: No acute ischemia tachycardia noted. The labs revealed a mild leukocytosis. Chemistry panel revealed significant hyperglycemia. CO2 minimally depressed. Beta hydroxybutyrate elevated. Imaging studies: CAT scan as above. The patient has severe hyperglycemia. Her blood pressure was significantly elevated but has trended down without urgent intervention. She was given normal saline and insulin. She was also given a dose of aspirin. She needs further management in the hospital. Consultation: A consultation was placed with the hospitalist. The case was discussed and diagnostics were reviewed. The patient was evaluated in the ER for further treatment. Medication Reconcilliation Current Medication List: was personally reviewed by me Blood Pressure Screening Patient's blood pressure: Elevated blood pressure Referred to Hospitalist Consults Time Called: [phone] Consulting Physician: CORI Dennis Returned Call: [phone] Discussed the patient's case with CORI Dennis. The patient will be evaluated for further treatment and disposition. Impression Primary Impression: Hyperglycemia Additional Impressions: Malignant hypertension Right arm weakness Scribe Attestation The scribe's documentation has been prepared under my direction and personally reviewed by me in its entirety. I confirm that the note above accurately reflects all work, treatment, procedures, and medical decision making performed by me. Departure Information Dispostion Being Evaluated By Hospitalist (CORI Dennis) Referrals Natali Langston D.O. (PCP) Patient Instructions My [facility] Problem Qualifiers
[2017-10-15] MEDS ORDERED: GLUCOSE 40% GEL 15 GM TUBE PO PRN (22:30)
[2017-10-15] MEDS ORDERED: DEXTROSE 50% 50 ML SYR IV PRN (22:30)
[2017-10-15] MEDS ORDERED: GLUCAGON FOR INJ 1 MG VIAL IM PRN (22:30)
[2017-10-15] MEDS ORDERED: GLUCOSE 10 TABS/TUBE PO PRN (22:30)
[2017-10-15] MEDS ORDERED: CARBOHYDRATES FOR HYPOGLYCEMIA PO PRN (22:30)
[2017-10-15 23:36] VITALS: BP 146/83; PULSE 101; TEMP 37.4; O2SAT 91
[2017-10-16 03:46] VITALS: BP 139/83; PULSE 95; TEMP 37.2; O2SAT 96
[2017-10-16] MEDS: SODIUM CHLORIDE 0.9% 1000ML 1,000 ML IV SCH (03:57)
[2017-10-16] MEDS: LEVOTHYROXINE 175 MCG TAB PO SCH (05:16)
[2017-10-16] MEDS: HEPARIN SOD 5000 UNIT/0.5 ML CARP SQ SCH ×3 (05:17→20:52)
[2017-10-16 05:59] LABS: HEMATOCRIT 34.7 % (37-47); HEMOGLOBIN 11.7 g/dL (12.0-16.0); MEAN CELL VOLUME 86.8 fL (80-100); MEAN CORPUSCULAR HEMOGLOBIN 29.3 pg (25-34); MEAN CORPUSCULAR HGB CONC 33.7 g/dl (32-36); MEAN PLATELET VOLUME 10.6 fL (7.4-10.4); PLATELET COUNT 230 K/uL (130-400); RED CELL DISTRIBUTION WIDTH CV 14.8 % (11.5-14.5); RED CELL DISTRIBUTION WIDTH SD 46.7 fL (36.4-46.3); WHITE BLOOD COUNT 11.66 K/uL (4.8-10.8)
[2017-10-16 06:36] LABS: CALCIUM 8.6 mg/dl (8.5-10.1); CREATININE 0.99 mg/dl (0.60-1.20); POTASSIUM 3.1 mmol/L (3.5-5.1)
[2017-10-16] MEDS ORDERED: POTASSIUM CHLORIDE 10 MEQ TABCR PO STA (06:45)
[2017-10-16] MEDS ORDERED: NSS + 20MEQ KCL 1000ML 1,000 ML IV ONE (07:00)
[2017-10-16 07:06] LABS: HEMOGLOBIN A1C 15.9 % (4.5-5.6)
[2017-10-16 07:32] VITALS: BP 144/84; PULSE 92; TEMP 36.7; O2SAT 97
[2017-10-16] MEDS: CYANOCOBALAMIN 500 MCG TAB (VIT B-12) PO SCH (07:34)
[2017-10-16] MEDS: RANITIDINE HCL 150 MG TAB PO SCH ×2 (07:34→20:46)
[2017-10-16] MEDS: PANTOprazole SOD 40 MG TAB PO SCH (07:34)
[2017-10-16] MEDS: LISINOPRIL 20 MG TAB PO SCH (08:07)
[2017-10-16] MEDS: INSULIN ASPART 100 UNITS/ML 3 ML PEN SC SCH ×4 (08:47→20:46)
[2017-10-16] MEDS ORDERED: LISINOPRIL/HCTZ 20/12.5MG TAB PO SCH (09:00)
[2017-10-16] MEDS ORDERED: POTASSIUM CHLORIDE 20 MEQ TABCR PO ONE (09:30)
[2017-10-16] MEDS ORDERED: PHARMACY GLYCEMIC MGMT CONSULT PRN (10:16)
[2017-10-16] MEDS ORDERED: INSULIN GLARGINE SC ONE (11:00)
[2017-10-16 11:50] VITALS: BP 111/70; PULSE 92; TEMP 36.9; O2SAT 97
[2017-10-16 13:23] VITALS: BMI 51.2
--- NOTE | 2017-10-16 14:53 | ECHOCARDIOGRAM REPORT ---
*NOTICE TO RECEIVING LIBERTARIAN AGENCY This information is strictly Confidential and protected under [place] law. [place] law prohibits you from making any further disclosure of this information unless further disclosure is expressly permitted by the written consent of the person to whom it pertains or is authorized by law. A general authorization for the release of medical or other information is not sufficient for this purpose. Hospital accepts no responsibility if the information is made available to any other person, INCLUDING THE PATIENT. Interpretation Summary * Name: JASPER AIKEN Study Date: 10/16/2017 12:59 PM BP: 111/70 mmHg * Patient Location: C.2T\S\S233\S\1 HR: 94 * : 1960 (M/d/yyyy) Gender: Female Height: 61 in * Age: 57 yrs Ethnicity: [place] Weight: 267 lb * Ordering Physician: Daniela Martin * Referring Physician: Self, Referred * Performed By: Mary Bingham RCS * * Reason For Study: MURMURS * BSA: 2.1 m2 * The study was technically adequate. * There is no comparison study available. * -- Conclusions -- * The left ventricle is hyperdynamic. * Ejection Fraction = >70 %. * There is moderate concentric left ventricular hypertrophy. * Grade I diastolic dysfunction, (abnormal relaxation pattern). * Aortic valve sclerosis mild, without significant aortic valvular stenosis. Procedure Details * A complete two-dimensional transthoracic echocardiogram was performed (2D, M-mode, Doppler and color flow Doppler). Left Ventricle * The left ventricle is normal in size. * There is no thrombus. * There is moderate concentric left ventricular hypertrophy. * Ejection Fraction = >70 %. * The left ventricle is hyperdynamic. * No regional wall motion abnormalities noted. Right Ventricle * The right ventricle is normal size. * The right ventricular systolic function is normal as assessed by tricuspid annular plane systolic excursion (TAPSE) (normal >1.5 cm). Atria * The left atrial size is normal. * Right atrial size is normal. * There is no evidence of atrial septal defect, but resolution does not allow assessment for a patent foramen ovale. Mitral Valve * There is moderate mitral annular calcification. * There is no mitral valve stenosis. * Significant mitral regurgitation is absent. Tricuspid Valve * The tricuspid valve is normal. * There is no tricuspid stenosis. * Significant tricuspid regurgitation is absent. Aortic Valve * The aortic valve is trileaflet. * Aortic valve sclerosis mild, without significant aortic valvular stenosis. * Aortic stenosis is absent. * There is no significant aortic regurgitation. Pulmonic Valve * The pulmonary valve is not well seen, but the Doppler examination is normal without significant regurgitation or stenosis. Great Vessels * The aortic root is normal size. Pericardium/Pleural * There is no pericardial effusion. Great Vessels * Normal inferior vena cava diameter and respiratory variation suggests normal central venous pressure. Left Ventricular Diastolic Function * Grade I diastolic dysfunction, (abnormal relaxation pattern). MMode 2D Measurements and Calculations IVSd 1.5 cm IVSs 2.1 cm LVIDd 3.5 cm LVIDs 2.2 cm LVPWd 1.5 cm LVPWs 2.0 cm IVS/LVPW 0.98 FS 36.6 % EDV(Teich) 49.5 ml ESV(Teich) 16.1 ml EF(Teich) 67.4 % EDV(cubed) 41.4 ml ESV(cubed) 10.6 ml EF(cubed) 74.5 % % IVS thick 41.4 % % LVPW thick 33.4 % LV mass(C)d 189.5 grams LV mass(C)dI 88.7 grams/m\S\2 LV mass(C)s 200.3 grams LV mass(C)sI 93.8 grams/m\S\2 SV(Teich) 33.4 ml SI(Teich) 15.6 ml/m\S\2 SV(cubed) 30.9 ml SI(cubed) 14.4 ml/m\S\2 Ao root diam 3.0 cm Ao root area 7.0 cm\S\2 LA dimension 3.4 cm LA/Ao 1.2 LVAd ap4 25.0 cm\S\2 LVLd ap4 8.7 cm EDV(MOD-sp4) 59.0 ml EDV(sp4-el) 61.0 ml LVAs ap4 13.5 cm\S\2 LVLs ap4 7.8 cm ESV(MOD-sp4) 21.2 ml ESV(sp4-el) 19.7 ml EF(MOD-sp4) 64.1 % EF(sp4-el) 67.7 % LVAd ap2 31.0 cm\S\2 LVLd ap2 8.4 cm EDV(MOD-sp2) 94.2 ml EDV(sp2-el) 97.1 ml LVAs ap2 14.8 cm\S\2 LVLs ap2 6.7 cm ESV(MOD-sp2) 30.2 ml ESV(sp2-el) 27.7 ml EF(MOD-sp2) 67.9 % EF(sp2-el) 71.5 % LVLd %diff -3.14 % EDV(MOD-bp) 76.0 ml LVLs %diff -16.38 % ESV(MOD-bp) 25.0 ml EF(MOD-bp) 67.1 % SV(MOD-sp4) 37.8 ml SI(MOD-sp4) 17.7 ml/m\S\2 SV(MOD-sp2) 64.0 ml SI(MOD-sp2) 30.0 ml/m\S\2 SV(MOD-bp) 51.0 ml SI(MOD-bp) 23.9 ml/m\S\2 SV(sp4-el) 41.3 ml SI(sp4-el) 19.3 ml/m\S\2 SV(sp2-el) 69.4 ml SI(sp2-el) 32.5 ml/m\S\2 Doppler Measurements and Calculations MV E max oswaldo 81.5 cm/sec MV A max oswaldo 138.5 cm/sec MV E/A 0.59 MV dec time 0.25 sec Ao V2 max 184.6 cm/sec Ao max PG 13.6 mmHg Ao max PG (full) 4.3 mmHg LV V1 max PG 9.3 mmHg LV V1 max 152.6 cm/sec
--- NOTE | 2017-10-16 15:03 | Pharmacy Progress Note ---
Glycemic Control Intl Consult Date of Service Oct 16, 2017. Scope Glycemic Pharmacist consulted by Dr Rosas on 10/16/17 for glycemic control and to write orders per [facility] inpatient glycemic control protocol. Objective Weight (Kilograms): 122.800 Accuchecks BSG (last 24hrs): Test 10/15/17 14:55 10/15/17 15:00 10/15/17 15:01 10/15/17 16:57 Bedside Glucose > 600 mg/dl (70-90) > 600 mg/dl (70-90) 494 mg/dl (70-90) Random Glucose 682 mg/dl (70-99) Test 10/15/17 19:07 10/15/17 20:56 10/15/17 21:01 10/15/17 22:01 Bedside Glucose 532 mg/dl (70-90) 457 mg/dl (70-90) 417 mg/dl (70-90) Random Glucose 448 mg/dl (70-99) Test 10/15/17 23:04 10/16/17 01:01 10/16/17 03:02 10/16/17 05:08 Bedside Glucose 404 mg/dl (70-90) 330 mg/dl (70-90) 254 mg/dl (70-90) 233 mg/dl (70-90) Test 10/16/17 05:26 10/16/17 06:03 10/16/17 06:56 10/16/17 08:02 Random Glucose 226 mg/dl (70-99) Bedside Glucose 246 mg/dl (70-90) 245 mg/dl (70-90) 276 mg/dl (70-90) Test 10/16/17 08:55 10/16/17 10:06 10/16/17 11:01 10/16/17 12:04 Bedside Glucose 373 mg/dl (70-90) 374 mg/dl (70-90) 340 mg/dl (70-90) 338 mg/dl (70-90) Test 10/16/17 13:08 10/16/17 14:02 Bedside Glucose 432 mg/dl (70-90) 391 mg/dl (70-90) Laboratory Data (last 24hrs) Test 10/15/17 15:00 10/15/17 20:56 10/16/17 05:26 Anion Gap 11.0 mmol/L 12.0 mmol/L 10.0 mmol/L BUN/Creatinine Ratio 14.1 13.7 15.0 Blood Urea Nitrogen 21 mg/dl 19 mg/dl 15 mg/dl Creatinine 1.49 mg/dl 1.41 mg/dl 0.99 mg/dl Potassium Level 4.1 mmol/L 3.7 mmol/L 3.1 mmol/L Sodium Level 120 mmol/L 126 mmol/L 134 mmol/L White Blood Count 12.38 K/uL 11.66 K/uL Red Blood Count 3.96 M/uL Hemoglobin 11.6 g/dL Hematocrit 34.3 % Mean Corpuscular Volume 86.6 fL Mean Corpuscular Hemoglobin 29.3 pg Mean Corpuscular Hemoglobin Concent 33.8 g/dl Platelet Count 276 K/uL Mean Platelet Volume 11.2 fL Neutrophils (%) (Auto) 62.6 % Lymphocytes (%) (Auto) 31.7 % Monocytes (%) (Auto) 4.0 % Eosinophils (%) (Auto) 1.1 % Basophils (%) (Auto) 0.2 % Neutrophils # (Auto) 7.76 K/uL Lymphocytes # (Auto) 3.92 K/uL Monocytes # (Auto) 0.50 K/uL Eosinophils # (Auto) 0.13 K/uL Basophils # (Auto) 0.02 K/uL Hemoglobin A1c 15.9 % HbA1c Test 10/16/17 05:26 Hemoglobin A1c 15.9 % (4.5-5.6) H Recent Pertinent Medications Outpatient Anti-diabetic Regimen: * Toujeo 80 units SQ BID * Novolog 45 units SQ QID * Metformin 1,000mg PO BID * A1c = 15.9% (10/16/17) Assessment & Plan ASSESSMENT: * Ms Smith is a 57yo diabetic female admitted with uncontrolled Type 2 diabetes. In the past, her diabetes has been well-managed, however, patient has not used any of her diabetes medications for ~1-2 months due to loss of job/insurance. * Patient's BSG on admission last night was 682 mg/dL (AG 11, CO2 18, BHBA 26.15 , 1+ ketones in urine). * Patient was given IV insulin bolus and initiated on IV insulin infusion last night. PLAN FOR INPATIENT GLYCEMIC CONTROL: * Holding outpatient oral diabetes medications * Basal insulin with LANTUS 50 units SQ BID continue IV insulin infusion until Lantus ~steady-state -- BSG should be stable on low drip rate prior to discontinuation * Correctional Insulin with NOVOLOG per scale ACHS or Q6hrs while NPO * per insulin infusion adjustment calculator DISCHARGE PLANNING: * Patient will need to find an affordable option for glycemic management on discharge, until health insurance becomes available. * CDE has discussed using a [employer] meter and 70/30 insulin and patient is agreeable. * Further recommendations when patient is stable and off of insulin infusion. * Please note that the plan above was derived based on current level of insulin resistance and hospital stress. These recommendations are appropriate for inpatient admission only. Plan of care upon discharge will need to be reassessed to avoid potential outpatient hypo/hyperglycemia. Thank you.
[2017-10-16 15:59] VITALS: BP 147/87; PULSE 93; TEMP 36.8; O2SAT 93
[2017-10-16] MEDS: INSULIN REGULAR 250 UNITS in SODIUM CHLORIDE 0.9% 250ML 250 ML IV SCH ×5 (16:30→20:39)
--- NOTE | 2017-10-16 17:43 | Progress Note ---
Medicine Progress Note Date & Time of Visit: Oct 16, 2017 at 17:21. Subjective Pt was seen and examined Lying in bed with no distress Pt said that she feels much better today She denies any headache, blurry vision, palpitation and chest pain Objective Last 8 Hrs Date Time Temp Pulse Resp B/P (MAP) Pulse Ox O2 Delivery O2 Flow Rate FiO2 10/16/17 15:59 36.8 93 20 147/87 (107) 93 Room Air 10/16/17 11:50 36.9 92 20 111/70 (84) 97 Room Air Physical Exam: General- No acute distress Head- atraumatic Eyes- PERRL, EOMI ENT- oropharynx clear Neck- supple, no JVD Lungs- clear to auscultation Heart- regular rhythm Abdomen- normal bowel sounds, soft Extremities- no calf tenderness Neuro- alert, oriented x 3; PERRL, EOMI; no facial palsy Skin- warm & dry Laboratory Results: Last 24 Hours Test 10/15/17 18:00 10/15/17 19:07 10/15/17 20:56 10/15/17 21:01 Urine Color YELLOW Urine Appearance CLEAR Urine pH 5.0 Urine Specific [place] 1.035 Urine Protein NEG Urine Glucose (UA) 3+ Urine Ketones 1+ Urine Occult Blood NEG Urine Nitrite NEG Urine Bilirubin NEG Urine Urobilinogen NEG Urine Leukocyte Esterase TRACE Urine WBC (Auto) /hpf Urine RBC (Auto) /hpf Urine Hyaline Casts (Auto) /lpf Urine Epithelial Cells (Auto) /lpf Urine Bacteria (Auto) Urine RBC 0-4 /hpf Urine WBC 1-5 /hpf Urine Epithelial Cells 10-20 /lpf Urine Bacteria 1+ Urine Yeast BUD W/ HYPHAE Urine Yeast (Auto) Bedside Glucose 532 mg/dl 457 mg/dl Sodium Level 126 mmol/L Potassium Level 3.7 mmol/L Chloride Level 95 mmol/L Carbon Dioxide Level 20 mmol/L Anion Gap 12.0 mmol/L Blood Urea Nitrogen 19 mg/dl Creatinine 1.41 mg/dl Est Creatinine Clear Calc Drug Dose 53.6 ml/min Estimated GFR () 47.8 Estimated GFR (Non- 41.2 BUN/Creatinine Ratio 13.7 Random Glucose 448 mg/dl Calcium Level 8.6 mg/dl Beta-Hydroxybutyric Acid 18.52 mg/dL Test 10/15/17 22:01 10/15/17 23:04 8/7/18 01:01 10/16/17 03:02 Bedside Glucose 417 mg/dl 404 mg/dl 330 mg/dl 254 mg/dl Test 10/16/17 05:08 10/16/17 05:26 10/16/17 06:03 10/16/17 06:56 Bedside Glucose 233 mg/dl 246 mg/dl 245 mg/dl White Blood Count 11.66 K/uL Red Blood Count 4.00 M/uL Hemoglobin 11.7 g/dL Hematocrit 34.7 % Mean Corpuscular Volume 86.8 fL Mean Corpuscular Hemoglobin 29.3 pg Mean Corpuscular Hemoglobin Concent 33.7 g/dl RDW Standard Deviation 46.7 fL RDW Coefficient of Variation 14.8 % Platelet Count 230 K/uL Mean Platelet Volume 10.6 fL Sodium Level 134 mmol/L Potassium Level 3.1 mmol/L Chloride Level 99 mmol/L Carbon Dioxide Level 24 mmol/L Anion Gap 10.0 mmol/L Blood Urea Nitrogen 15 mg/dl Creatinine 0.99 mg/dl Est Creatinine Clear Calc Drug Dose 76.4 ml/min Estimated GFR () 73.3 Estimated GFR (Non- 63.3 BUN/Creatinine Ratio 15.0 Random Glucose 226 mg/dl Estimated Average Glucose 410 mg/dl Hemoglobin A1c 15.9 % Calcium Level 8.6 mg/dl Test 10/16/17 08:02 10/16/17 08:55 10/16/17 10:06 10/16/17 11:01 Bedside Glucose 276 mg/dl 373 mg/dl 374 mg/dl 340 mg/dl Test 10/16/17 12:04 10/16/17 12:45 10/16/17 13:08 10/16/17 14:02 Bedside Glucose 338 mg/dl 432 mg/dl 391 mg/dl Urine Color YELLOW Urine Appearance CLEAR Urine pH 5.5 Urine Specific [place]rington 1.024 Urine Protein NEG Urine Glucose (UA) 3+ Urine Ketones TRACE Urine Occult Blood NEG Urine Nitrite NEG Urine Bilirubin NEG Urine Urobilinogen NEG Urine Leukocyte Esterase SMALL Urine WBC (Auto) /hpf Urine RBC (Auto) /hpf Urine Hyaline Casts (Auto) /lpf Urine Epithelial Cells (Auto) /lpf Urine Bacteria (Auto) Urine RBC 0-4 /hpf Urine WBC 5-10 /hpf Urine Epithelial Cells 5-10 /lpf Urine Bacteria 1+ Urine Yeast BUD W/ HYPHAE Urine Yeast (Auto) Test 10/16/17 15:01 10/16/17 16:11 Bedside Glucose 315 mg/dl 242 mg/dl Date/Time Source Procedure Growth Status 10/15/17 18:00 Urine , Clean Catch Urine Culture - Preliminary PIN-POINT GROWTH PRESENT, REINCUBATING. Resulted Assessment & Plan [facility] Uncontrolled type 2 DM Glucose on admission 682 Hba1c 15.9 Elevated Beta hydroxybutyrate Pt said that she lost her job and lost her health insurance Was starting on Insulin drip Pharmacy on board for glycemic management Lantus 1st dose given Continue IVF Continue monitor BS Since pt has no insurance will discuss with pharmacy to consider 70/30 or NPH insulin so that pt can afford it. Headache associated to blurry vision Mostly related to [facility] CT head showed no acute intracranial abnormality. Resolved Abnormal UA Urine cx growth pinpoint On Rocephin IV Follow up urine cx. Electrolytes Imbalance Na 134 and K3.1 K replaced Monitor electrolytes HTN BP stable will start on lisinopril in am Monitor BP PERLITA Due to dehydration Creatine on admission 1.49 Lisinopril/HCTZ held Received IVF Creatine 1.1 today Resolved Depression Stable Follow up with outpatient counselor Hypothyroidism Continue levothyroxine TSH WNL Stable DVT px on heparin subq CODE STATUS DNR Current Inpatient Medications: Current Inpatient Medications Medications (Trade) Dose Ordered Sig/Fabrice Route Start Time Stop Time Status Last Admin Dose Admin Heparin Sodium (Porcine) (Heparin Sq 5000 Unit/0.5ml) 5,000 unit Q8 SQ 10/15/17 22:00 11/14/17 21:59 10/16/17 12:37 5,000 UNIT Acetaminophen (Tylenol Tab) 650 mg Q4H PRN PO 10/15/17 17:00 11/14/17 16:59 Amitriptyline HCl (Elavil Tab) 100 mg HS PO 10/15/17 21:00 11/14/17 20:59 10/15/17 20:37 100 MG Aspirin (Ecotrin Tab) 81 mg QPM PO 10/15/17 21:00 11/14/17 20:59 10/15/17 20:37 81 MG Atorvastatin Calcium (Lipitor Tab) 80 mg HS PO 10/15/17 21:00 11/14/17 20:59 10/15/17 20:38 80 MG Cholecalciferol (Vitamin D Tab) 1,000 inter.unit QPM PO 10/15/17 21:00 11/14/17 20:59 10/15/17 20:38 1,000 INTER.UNIT Levothyroxine Sodium (Synthroid Tab) 175 mcg DAILYBB PO 10/16/17 06:00 11/15/17 05:59 10/16/17 05:16 175 MCG Ranitidine HCl (zANTac TAB) 150 mg BID PO 10/15/17 21:00 11/14/17 20:59 10/16/17 07:34 150 MG Albuterol (Ventolin Hfa Inhaler) 1 puffs QID PRN INH 10/15/17 17:15 11/14/17 17:14 Cyanocobalamin (Vitamin B-12 Tab) 1,000 mcg QAM PO 10/16/17 09:00 11/15/17 08:59 10/16/17 07:34 1,000 MCG Pantoprazole Sodium (Protonix Tab) 40 mg QAM PO 10/16/17 09:00 11/15/17 08:59 10/16/17 07:34 40 MG Insulin Aspart (novoLOG ASPART) SLIDING SCALE PCHS SC 10/15/17 21:00 11/14/17 20:59 10/16/17 12:36 8 UNITS Insulin Human Regular 250 units/ Sodium Chloride 252.5 ml @ 0 mls/hr Q24H IV 10/15/17 19:45 11/14/17 19:44 10/16/17 16:30 7.2 MLS/HR Labetalol HCl (Normodyne IV) 5 mg Q4H PRN IV 10/15/17 20:00 11/14/17 19:59 Glucose (Glucose 40% Gel) 15-30 GRAMS 15 GRAMS... UD PRN PO 10/15/17 22:30 11/14/17 22:29 Glucose (Glucose Chew Tab) 4-8 Tablets 4 Tabl... UD PRN PO 10/15/17 22:30 11/14/17 22:29 Dextrose (Dextrose 50% 50ML Syringe) 25-50ML 25ML FOR ... UD PRN IV 10/15/17 22:30 11/14/17 22:29 Glucagon (Glucagon Inj) 1 mg UD PRN IM 10/15/17 22:30 11/14/17 22:29 Carbohydrates (Carbohydrates For Hypoglycemia) 15-30 GRAMS 15 grams if BSG 54-69... UD PRN PO 10/15/17 22:30 11/14/17 22:29 Potassium Chloride/Sodium Chloride 1,000 ml @ 80 mls/hr [id number] ONCE IV 10/16/17 07:00 10/16/17 19:29 10/16/17 07:34 80 MLS/HR Lisinopril (Zestril Tab) 20 mg QAM PO 10/16/17 09:00 11/15/17 08:59 10/16/17 08:07 20 MG Miscellaneous Information (Consult Glycemic Management Pharmacy) 1 ea UD PRN N/A 10/16/17 10:16 11/15/17 10:15 Insulin Glargine (Lantus Vial) 50 units BID SC 10/16/17 21:00 11/15/17 20:59
[2017-10-16 20:18] LABS: CALCIUM 8.7 mg/dl (8.5-10.1); CREATININE 1.5 mg/dl (0.60-1.20)
[2017-10-16 20:22] LABS: POTASSIUM 4.1 mmol/L (3.5-5.1)
[2017-10-16 20:39] VITALS: BP 105/63; PULSE 63; TEMP 36.8; O2SAT 99
[2017-10-16] MEDS: ASPIRIN 81 MG ECTAB PO SCH (20:46)
[2017-10-16] MEDS: ATORVASTATIN 40 MG TAB PO SCH (20:46)
[2017-10-16] MEDS: CHOLECALCIFEROL 1000 INTER.UNIT TAB PO SCH (20:46)
[2017-10-16] MEDS: AMITRIPTYLINE HCL 50 MG TAB PO SCH (20:46)
[2017-10-16] MEDS: INSULIN GLARGINE SC SCH (20:51)
[2017-10-17] VITALS (7 sets, daily range): BP systolic 101–139; BP diastolic 55–76; PULSE 85–99; TEMP 36.6–36.9; O2SAT 95–97; BMI 51.2
[2017-10-17] MEDS: INSULIN REGULAR 250 UNITS in SODIUM CHLORIDE 0.9% 250ML 250 ML IV SCH ×12 (00:03→22:34)
[2017-10-17] MEDS: LEVOTHYROXINE 175 MCG TAB PO SCH (05:56)
[2017-10-17] MEDS: HEPARIN SOD 5000 UNIT/0.5 ML CARP SQ SCH ×3 (05:58→21:18)
[2017-10-17 06:36] LABS: HEMATOCRIT 33.9 % (37-47); HEMOGLOBIN 11.2 g/dL (12.0-16.0); MEAN CELL VOLUME 88.1 fL (80-100); MEAN CORPUSCULAR HEMOGLOBIN 29.1 pg (25-34); MEAN PLATELET VOLUME 10.4 fL (7.4-10.4); PLATELET COUNT 234 K/uL (130-400); RED CELL DISTRIBUTION WIDTH CV 15.4 % (11.5-14.5); RED CELL DISTRIBUTION WIDTH SD 49.2 fL (36.4-46.3); WHITE BLOOD COUNT 10.51 K/uL (4.8-10.8)
[2017-10-17 07:24] LABS: CALCIUM 8.8 mg/dl (8.5-10.1); CREATININE 1.06 mg/dl (0.60-1.20)
[2017-10-17] MEDS: LISINOPRIL 20 MG TAB PO SCH (07:56)
[2017-10-17] MEDS: CYANOCOBALAMIN 500 MCG TAB (VIT B-12) PO SCH (07:56)
[2017-10-17] MEDS: RANITIDINE HCL 150 MG TAB PO SCH ×2 (07:56→21:27)
[2017-10-17] MEDS: PANTOprazole SOD 40 MG TAB PO SCH (07:56)
[2017-10-17] MEDS: INSULIN ASPART 100 UNITS/ML 3 ML PEN SC SCH ×5 (08:06→21:00)
[2017-10-17] MEDS: INSULIN GLARGINE SC SCH ×2 (08:06→21:18)
--- NOTE | 2017-10-17 13:40 | Pharmacy Progress Note ---
Pharmacy Glycemic Short Note 2 Date of Service Oct 17, 2017. Outpatient Anti-diabetic Regimen: * Toujeo 80 units SQ BID * Novolog 45 units SQ QID * Metformin 1,000mg PO BID * A1c = 15.9% (10/16/17) ASSESSMENT: 10/17/17: * Patient remains on insulin drip as Lantus builds to steady-state. Patient has now received 3 doses of Lantus and insulin infusion continues to run at 7 units/hr, with BSGs in the mid-200s. * Expect that patient is highly insulin-resistant, having not taken any anti- diabetic medications for a prolonged period, and given A1c >15%. * Expect that infusion will wean off tomorrow as Lantus approaches steady state and BSGs improve. 10/16/17 * Ms Smith is a 57yo diabetic female admitted with uncontrolled Type 2 diabetes. In the past, her diabetes has been well-managed, however, patient has not used any of her diabetes medications for ~1-2 months due to loss of job/insurance. * Patient's BSG on admission last night was 682 mg/dL (AG 11, CO2 18, BHBA 26.15 , 1+ ketones in urine). * Patient was given IV insulin bolus and initiated on IV insulin infusion last night. PLAN FOR INPATIENT GLYCEMIC CONTROL: * Holding outpatient oral diabetes medications * Basal insulin with LANTUS 50 units SQ BID continue IV insulin infusion until Lantus ~steady-state -- BSG should be stable on low drip rate prior to discontinuation * Correctional Insulin with NOVOLOG per scale ACHS or Q6hrs while NPO * fixed carb ratio: 1 unit per 4 gm CHO consumed DISCHARGE PLANNING: * Patient will need to find an affordable option for glycemic management on discharge, until health insurance becomes available. * CDE has discussed using a [employer] meter and 70/30 insulin and patient is agreeable. * Further recommendations when patient is stable and off of insulin infusion. * Please note that the plan above was derived based on current level of insulin resistance and hospital stress. These recommendations are appropriate for inpatient admission only. Plan of care upon discharge will need to be reassessed to avoid potential outpatient hypo/hyperglycemia. Thank you.
--- NOTE | 2017-10-17 16:05 | Progress Note ---
Progress Note Date of Service Oct 17, 2017. Progress Note Subjective: Patient denies acute pain or shortness of breath or chest pain. Patient denies neurological symptoms of headache or lightheadedness or motor weakness Physical Exam General- No acute distress Head- atraumatic Eyes- PERRL, EOMI ENT- oropharynx clear Neck- supple, no JVD Lungs- clear to auscultation Heart- regular rhythm Abdomen- normal bowel sounds, soft Extremities- no calf tenderness, no motor deficits Neuro- alert, oriented x 3; PERRL, EOMI; no facial palsy Skin- warm & dry Assessment and Plan [facility] Uncontrolled type 2 DM Glucose on admission 682 Hba1c 15.9 Elevated Beta hydroxybutyrate blood glucose currently better control but remains on insulin drip; followed by pharmacy glycemic control and is trying to transition patient to subcutaneous insulin alone Headache associated with blurry vision related to [facility] CT head showed no acute intracranial abnormality. Resolved Abnormal UA however no longer on antibiotics as she is asymptomatic and likely skin genevieve URINE CULTURE Final 10/17/17-1214 MORE THAN THREE TYPES OF ORGANISMS PRESENT, ALL HIGH COUNTS MIXED PROBABLE SKIN GENEVIEVE - NO FURTHER IDENTIFICATIONS OR SENSITIVITIES TO FOLLOW. Urine has bud with hyphae - likely fungal associated with poorly controlled diabetes, treat diabetes HTN BP stable continue lisinopril PERLITA resolved avoid HCTZ for now Depression Stable Hypothyroidism TSH WNL Continue levothyroxine DVT px on heparin subq CODE STATUS DNR (Level 5)
[2017-10-17] MEDS: ASPIRIN 81 MG ECTAB PO SCH (21:26)
[2017-10-17] MEDS: AMITRIPTYLINE HCL 50 MG TAB PO SCH (21:27)
[2017-10-17] MEDS: ATORVASTATIN 40 MG TAB PO SCH (21:27)
[2017-10-17] MEDS: CHOLECALCIFEROL 1000 INTER.UNIT TAB PO SCH (21:28)
[2017-10-18] VITALS (7 sets, daily range): BP systolic 96–122; BP diastolic 58–77; PULSE 82–94; TEMP 36.5–36.8; O2SAT 94–98; Ht 154.9 cm; Wt 123.0 kg
[2017-10-18] MEDS: INSULIN REGULAR 250 UNITS in SODIUM CHLORIDE 0.9% 250ML 250 ML IV SCH ×5 (00:39→15:02)
[2017-10-18 06:24] LABS: ALBUMIN 2.6 gm/dl (3.4-5.0); CALCIUM 8.4 mg/dl (8.5-10.1); CREATININE 1.13 mg/dl (0.60-1.20); POTASSIUM 3.8 mmol/L (3.5-5.1); TOTAL PROTEIN 7.1 gm/dl (6.4-8.2)
[2017-10-18] MEDS: LEVOTHYROXINE 175 MCG TAB PO SCH (06:25)
[2017-10-18] MEDS: HEPARIN SOD 5000 UNIT/0.5 ML CARP SQ SCH ×3 (06:28→21:21)
[2017-10-18] MEDS: LISINOPRIL 20 MG TAB PO SCH (08:38)
[2017-10-18] MEDS: PANTOprazole SOD 40 MG TAB PO SCH (08:38)
[2017-10-18] MEDS: RANITIDINE HCL 150 MG TAB PO SCH ×2 (08:38→21:14)
[2017-10-18] MEDS: CYANOCOBALAMIN 500 MCG TAB (VIT B-12) PO SCH (08:39)
[2017-10-18] MEDS: INSULIN ASPART 100 UNITS/ML 3 ML PEN SC SCH ×5 (08:47→23:53)
[2017-10-18] MEDS ORDERED: INSULIN GLARGINE SC SCH (09:00)
--- NOTE | 2017-10-18 12:25 | Progress Note ---
Progress Note Date of Service Oct 18, 2017. Progress Note Subjective: Patient denies acute pain or shortness of breath or chest pain. Patient denies neurological symptoms of headache or lightheadedness or motor weakness. Patient continues to be on insulin drip Physical Exam General- No acute distress Head- atraumatic Eyes- PERRL, EOMI ENT- oropharynx clear Neck- supple, no JVD Lungs- clear to auscultation Heart- regular rhythm Abdomen- normal bowel sounds, soft Extremities- no calf tenderness, no motor deficits Neuro- alert, oriented x 3; PERRL, EOMI; no facial palsy Skin- warm & dry Assessment and Plan [facility] Uncontrolled type 2 DM Glucose on admission 682 Hba1c 15.9 Elevated Beta hydroxybutyrate blood glucose currently better control but remains on insulin drip followed by pharmacy glycemic control and is trying to transition patient to subcutaneous insulin alone while on insulin drip, she is also getting coverage with lantus and Novolog case management following on patient's ability to obtain medications and trying to determine whether she can afford Lantus and Novolog combination vs 70/30 insulin Headache associated with blurry vision related to [facility] CT head showed no acute intracranial abnormality. Resolved Abnormal UA however no longer on antibiotics as she is asymptomatic and likely skin genevieve URINE CULTURE Final 10/17/17-1214 MORE THAN THREE TYPES OF ORGANISMS PRESENT, ALL HIGH COUNTS MIXED PROBABLE SKIN GENEVIEVE - NO FURTHER IDENTIFICATIONS OR SENSITIVITIES TO FOLLOW. Urine has bud with hyphae - likely fungal associated with poorly controlled diabetes, treat diabetes HTN BP stable continue lisinopril PERLITA resolved avoid HCTZ for now given blood pressure is controlled Depression Stable Hypothyroidism TSH 8.56 but free T4 is within normal limits of 1.27 Continue levothyroxine DVT px on heparin subq CODE STATUS DNR (Level 5)
--- NOTE | 2017-10-18 13:12 | Pharmacy Progress Note ---
Pharmacy Glycemic Short Note 2 Date of Service Oct 18, 2017. Outpatient Anti-diabetic Regimen: * Toujeo 80 units SQ BID * Novolog 45 units SQ QID * Metformin 1,000mg PO BID * A1c = 15.9% (10/16/17) ASSESSMENT: 10/18/17 * Despite increase in Lantus dose this morning and aggressive Novolog coverage for meals, patient remains on insulin gtt at >4 units/hr. * Will make the transition to 70/30 insulin now in an attempt to get patient off of the insulin gtt and to work toward new home regimen. * Will trial Novolin 70/30 TID with meals, as patient's insulin needs are very high and would like to avoid doses that exceed 100 units. 10/17/17 * Patient remains on insulin drip as Lantus builds to steady-state. Patient has now received 3 doses of Lantus and insulin infusion continues to run at 7 units/hr, with BSGs in the mid-200s. * Expect that patient is highly insulin-resistant, having not taken any anti- diabetic medications for a prolonged period, and given A1c >15%. * Expect that infusion will wean off tomorrow as Lantus approaches steady state and BSGs improve. 10/16/17 * Ms Smith is a 57yo diabetic female admitted with uncontrolled Type 2 diabetes. In the past, her diabetes has been well-managed, however, patient has not used any of her diabetes medications for ~1-2 months due to loss of job/insurance. * Patient's BSG on admission last night was 682 mg/dL (AG 11, CO2 18, BHBA 26.15 , 1+ ketones in urine). * Patient was given IV insulin bolus and initiated on IV insulin infusion last night. PLAN FOR INPATIENT GLYCEMIC CONTROL: * Holding outpatient oral diabetes medications * Basal insulin with Novolin 70/30 60 units SQ TID with meals * First dose NOW * May stop insulin infusion 2 hours after first dose of 70/30 is given, or when instructed to "hold" by calculator (whichever is sooner) * Correctional Insulin with NOVOLOG per scale ACHS plus 0000 and 0400 until BSGs stabilize * Correction factor: 10 mg/dL/unit -- this is to begin after insulin infusion has been discontinued * Prandial coverage will be provided with 70/30 DISCHARGE PLANNING: * Patient will need to find an affordable option for glycemic management on discharge, until health insurance becomes available. * CDE has discussed using a [employer] meter and 70/30 insulin and patient is agreeable. * Recommend starting with Novolin 70/30 60 units SQ TID with meals * Expect that this will need to be titrated upward, based on patient's previous insulin requirements, but would prefer to be conservative and titrate up gradually to avoid hypoglycemia, as it is not yet known how pt will respond to this new insulin product. * If patient is able to afford Metformin, consider adding it to regimen to promote insulin sensitization. * Please note that the plan above was derived based on current level of insulin resistance and hospital stress. These recommendations are appropriate for inpatient admission only. Plan of care upon discharge will need to be reassessed to avoid potential outpatient hypo/hyperglycemia. Thank you.
[2017-10-18] MEDS: INSULIN HUMAN 70% NPH/30% REGULAR SC SCH ×2 (13:29→17:04)
[2017-10-18] MEDS: ASPIRIN 81 MG ECTAB PO SCH (21:14)
[2017-10-18] MEDS: CHOLECALCIFEROL 1000 INTER.UNIT TAB PO SCH (21:14)
[2017-10-18] MEDS: ATORVASTATIN 40 MG TAB PO SCH (21:14)
[2017-10-18] MEDS: AMITRIPTYLINE HCL 50 MG TAB PO SCH (21:14)
[2017-10-19] MEDS: INSULIN ASPART 100 UNITS/ML 3 ML PEN SC SCH ×3 (04:00→12:26)
[2017-10-19 05:22] VITALS: BP 115/84; PULSE 70; TEMP 36.3; O2SAT 94
[2017-10-19] MEDS: LEVOTHYROXINE 175 MCG TAB PO SCH (05:38)
[2017-10-19] MEDS: HEPARIN SOD 5000 UNIT/0.5 ML CARP SQ SCH ×2 (05:39→14:00)
[2017-10-19 06:00] LABS: HEMATOCRIT 32.5 % (37-47); HEMOGLOBIN 10.5 g/dL (12.0-16.0); MEAN CELL VOLUME 88.6 fL (80-100); MEAN CORPUSCULAR HEMOGLOBIN 28.6 pg (25-34); MEAN CORPUSCULAR HGB CONC 32.3 g/dl (32-36); MEAN PLATELET VOLUME 11.1 fL (7.4-10.4); PLATELET COUNT 238 K/uL (130-400); RED CELL DISTRIBUTION WIDTH CV 15.5 % (11.5-14.5); RED CELL DISTRIBUTION WIDTH SD 49.7 fL (36.4-46.3); WHITE BLOOD COUNT 7.77 K/uL (4.8-10.8)
[2017-10-19 06:30] LABS: CALCIUM 8.5 mg/dl (8.5-10.1); CREATININE 1.13 mg/dl (0.60-1.20); POTASSIUM 3.9 mmol/L (3.5-5.1)
[2017-10-19 07:17] VITALS: BP 140/77; PULSE 98; TEMP 36.3; O2SAT 100
[2017-10-19] MEDS: CYANOCOBALAMIN 500 MCG TAB (VIT B-12) PO SCH (09:03)
[2017-10-19] MEDS: RANITIDINE HCL 150 MG TAB PO SCH (09:03)
[2017-10-19] MEDS: PANTOprazole SOD 40 MG TAB PO SCH (09:03)
[2017-10-19] MEDS: LISINOPRIL 20 MG TAB PO SCH (09:03)
[2017-10-19] MEDS: INSULIN HUMAN 70% NPH/30% REGULAR SC SCH ×2 (09:08→12:28)
--- NOTE | 2017-10-19 09:48 | Pharmacy Progress Note ---
Pharmacy Glycemic Short Note 2 Date of Service Oct 19, 2017. Outpatient Anti-diabetic Regimen: * Toujeo 80 units SQ BID * Novolog 45 units SQ QID * Metformin 1,000mg PO BID * A1c = 15.9% (10/16/17) ASSESSMENT: 10/19/17: * Patient was taken off of insulin drip yesterday afternoon after initiating 70/ 30 insulin regimen, and has tolerated it well so far. * Fasting BSG this am was 104 mg/dL. * There may still be some Lantus on board, so suspect that we may need to increase the dose of 70/30 insulin in the next day or so. 10/18/17 * Despite increase in Lantus dose this morning and aggressive Novolog coverage for meals, patient remains on insulin gtt at >4 units/hr. * Will make the transition to 70/30 insulin now in an attempt to get patient off of the insulin gtt and to work toward new home regimen. * Will trial Novolin 70/30 TID with meals, as patient's insulin needs are very high and would like to avoid doses that exceed 100 units. 10/17/17 * Patient remains on insulin drip as Lantus builds to steady-state. Patient has now received 3 doses of Lantus and insulin infusion continues to run at 7 units/hr, with BSGs in the mid-200s. * Expect that patient is highly insulin-resistant, having not taken any anti- diabetic medications for a prolonged period, and given A1c >15%. * Expect that infusion will wean off tomorrow as Lantus approaches steady state and BSGs improve. 10/16/17 * Ms Smith is a 57yo diabetic female admitted with uncontrolled Type 2 diabetes. In the past, her diabetes has been well-managed, however, patient has not used any of her diabetes medications for ~1-2 months due to loss of job/insurance. * Patient's BSG on admission last night was 682 mg/dL (AG 11, CO2 18, BHBA 26.15 , 1+ ketones in urine). * Patient was given IV insulin bolus and initiated on IV insulin infusion last night. PLAN FOR INPATIENT GLYCEMIC CONTROL: * Holding outpatient oral diabetes medications * Basal insulin with Novolin 70/30 60 units SQ TID with meals * Correctional Insulin with NOVOLOG per scale ACHS plus 0000 and 0400 until BSGs stabilize * Correction factor: 10 mg/dL/unit * Prandial coverage will be provided with 70/30 DISCHARGE PLANNING: * Patient will need to find an affordable option for glycemic management on discharge, until health insurance becomes available. * CDE has discussed using a [employer] meter and 70/30 insulin and patient is agreeable. * Recommend starting with Novolin 70/30 60 units SQ TID with meals * Expect that this will need to be titrated upward, based on patient's previous insulin requirements, but would prefer to be conservative and titrate up gradually to avoid hypoglycemia, as it is not yet known how pt will respond to this new insulin product. * If patient is able to afford Metformin, consider adding it to regimen to promote insulin sensitization. * Please note that the plan above was derived based on current level of insulin resistance and hospital stress. These recommendations are appropriate for inpatient admission only. Plan of care upon discharge will need to be reassessed to avoid potential outpatient hypo/hyperglycemia. Thank you.
[2017-10-19] MEDS ORDERED: AMT/50 PO (15:10)
[2017-10-19] MEDS ORDERED: LISI-726 PO (15:10)
[2017-10-19] MEDS ORDERED: PRLSR20 PO (15:10)
[2017-10-19] MEDS ORDERED: ASPI-461 PO (15:10)
[2017-10-19] MEDS ORDERED: METF1000 PO (15:10)
[2017-10-19] MEDS ORDERED: RANI150T2 PO (15:10)
[2017-10-19] MEDS ORDERED: ATOR-26 PO (15:10)
[2017-10-19] MEDS ORDERED: INSU70IN2 SC (15:10)
[2017-10-19] MEDS ORDERED: ALBU18002 INH (15:10)
[2017-10-19] MEDS ORDERED: BLOO1KIT92 (15:10)
[2017-10-19] MEDS ORDERED: LEVO175T3 PO (15:10)
--- NOTE | 2017-10-19 15:30 | Progress Note ---
Internal Med Progress Note Date of Service: Oct 19, 2017. Provider Documentation: Subjective: Patient denies acute pain or shortness of breath or chest pain. Patient denies neurological symptoms of headache or lightheadedness or motor weakness. Physical Exam General- No acute distress Head- atraumatic Eyes- EOMI ENT- oropharynx clear Neck- supple, no JVD Lungs- clear to auscultation Heart- regular rhythm Abdomen- normal bowel sounds, soft Extremities- no calf tenderness, no motor deficits Neuro- alert, oriented x 3; PERRL, EOMI; no facial palsy Skin- warm & dry ASSESSMENT & PLAN: Hospital Course and Discharge Plans Uncontrolled type 2 DM with hyperosmolar nonketotic hyperglycemia (On admission Glucose, Elevated Beta hydroxybutyrate, Hba1c 15.9) Patient was admitted on 10/15/17 and was started on insulin drip and transitioned to subcutaneous insulin regimen alone Patient is to be discharged with Novolin 70/30 as 60 units TID. Prescription also provided for metformin 1000 mg BID Initial symptom of hyperosmolar nonketotic hyperglycemia was Headache associated with blurry vision but this resolved and CT head showed no acute intracranial abnormality. Patient has abnormal urinalysis however no longer on antibiotics as she is asymptomatic and likely skin genevieve URINE CULTURE Final 10/17/17-1214 MORE THAN THREE TYPES OF ORGANISMS PRESENT, ALL HIGH COUNTS MIXED PROBABLE SKIN GENEVIEVE - NO FURTHER IDENTIFICATIONS OR SENSITIVITIES TO FOLLOW. Urine has bud with hyphae - likely fungal associated with poorly controlled diabetes, continue to treat diabetes Hypertension continue lisinopril Acute kidney injury resolved avoid HCTZ for now given blood pressure is controlled on lisinopril History of Depression stable mood Hypothyroidism TSH 8.56 but free T4 is within normal limits of 1.27 Continue levothyroxine Discharge Instructions Patient is to be discharged to Home. She is to follow up with primary care at [facility] ([facility]) Vital Signs: Date Time Temp Pulse Resp B/P (MAP) Pulse Ox O2 Delivery O2 Flow Rate FiO2 10/19/17 08:00 Room Air 10/19/17 07:17 36.3 98 18 140/77 (98) 100 Room Air 10/19/17 05:22 36.3 70 20 115/84 (94) 94 CPAP 10/19/17 00:00 Room Air 10/18/17 23:07 36.7 94 19 122/77 (92) 98 Room Air 10/18/17 20:02 36.5 82 18 96/58 (71) 98 Room Air 10/18/17 16:00 95 Room Air Lab Results: Results Past 24 Hours Test 10/18/17 16:42 10/18/17 20:18 10/18/17 23:53 10/19/17 04:22 Range/Units Bedside Glucose 143 175 115 88 70-90 mg/dl Test 10/19/17 05:47 10/19/17 07:27 10/19/17 11:54 Range/Units White Blood Count 7.77 4.8-10.8 K/uL Red Blood Count 3.67 4.2-5.4 M/uL Hemoglobin 10.5 12.0-16.0 g/dL Hematocrit 32.5 37-47 % Mean Corpuscular Volume 88.6 80-100 fL Mean Corpuscular Hemoglobin 28.6 25-34 pg Mean Corpuscular Hemoglobin Concent 32.3 32-36 g/dl RDW Standard Deviation 49.7 36.4-46.3 fL RDW Coefficient of Variation 15.5 11.5-14.5 % Platelet Count 238 130-400 K/uL Mean Platelet Volume 11.1 7.4-10.4 fL Sodium Level 133 136-145 mmol/L Potassium Level 3.9 3.5-5.1 mmol/L Chloride Level 107 98-107 mmol/L Carbon Dioxide Level 20 21-32 mmol/L Anion Gap 6.0 3-11 mmol/L Blood Urea Nitrogen 23 7-18 mg/dl Creatinine 1.13 0.60-1.20 mg/dl Est Creatinine Clear Calc Drug Dose 67.5 ml/min Estimated GFR () 62.5 Estimated GFR (Non- 53.9 BUN/Creatinine Ratio 20.8 10-20 Random Glucose 87 70-99 mg/dl Calcium Level 8.5 8.5-10.1 mg/dl Bedside Glucose 104 160 70-90 mg/dl
--- NOTE | 2017-10-19 15:31 | Discharge Instructions ---
Discharge Instructions Date of Service Oct 19, 2017. Admission Reason for Admission: Uncontrolled Type 2 Diabetes Mellitus With Discharge Discharge Diagnosis / Problem: Uncontrolled type 2 DM with hyperosmolar nonketotic hyperglycemia Discharge Goals Goal(s): Improve disease control Activity Recommendations Activity Limitations: per Instructions/Follow-up section . Instructions / Follow-Up Instructions / Follow-Up Hospital Course and Discharge Plans Uncontrolled type 2 DM with hyperosmolar nonketotic hyperglycemia (On admission Glucose, Elevated Beta hydroxybutyrate, Hba1c 15.9) Patient was admitted on 10/15/17 and was started on insulin drip and transitioned to subcutaneous insulin regimen alone Patient is to be discharged with Novolin 70/30 as 60 units TID. Prescription also provided for metformin 1000 mg BID Initial symptom of hyperosmolar nonketotic hyperglycemia was Headache associated with blurry vision but this resolved and CT head showed no acute intracranial abnormality. Patient has abnormal urinalysis however no longer on antibiotics as she is asymptomatic and likely skin genevieve URINE CULTURE Final 10/17/17-1214 MORE THAN THREE TYPES OF ORGANISMS PRESENT, ALL HIGH COUNTS MIXED PROBABLE SKIN GENEVIEVE - NO FURTHER IDENTIFICATIONS OR SENSITIVITIES TO FOLLOW. Urine has bud with hyphae - likely fungal associated with poorly controlled diabetes, continue to treat diabetes Hypertension continue lisinopril Acute kidney injury resolved avoid HCTZ for now given blood pressure is controlled on lisinopril History of Depression stable mood Hypothyroidism TSH 8.56 but free T4 is within normal limits of 1.27 Continue levothyroxine Discharge Instructions Patient is to be discharged to Home. She is to follow up with primary care at [facility] ([facility]) Current Hospital Diet Patient's current hospital diet: Diabetes Type 2 Diet, AHA Diet (Heart Healthy) Discharge Diet Recommended Diet: AHA Diet (Heart Healthy), Diabetes Type 2 Diet Pending Studies Studies pending at discharge: no Laboratory Results 10/19/17 05:47 10/19/17 05:47 Test 10/15/17 15:00 10/15/17 20:56 10/16/17 05:26 10/16/17 12:45 Immature Granulocyte % (Auto) 0.4 % White Blood Count 12.38 K/uL (4.8-10.8) Red Blood Count 3.96 M/uL (4.2-5.4) Hemoglobin 11.6 g/dL (12.0-16.0) Hematocrit 34.3 % (37-47) Mean Corpuscular Volume 86.6 fL (80-100) Mean Corpuscular Hemoglobin 29.3 pg (25-34) Mean Corpuscular Hemoglobin Concent 33.8 g/dl (32-36) Platelet Count 276 K/uL (130-400) Mean Platelet Volume 11.2 fL (7.4-10.4) Neutrophils (%) (Auto) 62.6 % Lymphocytes (%) (Auto) 31.7 % Monocytes (%) (Auto) 4.0 % Eosinophils (%) (Auto) 1.1 % Basophils (%) (Auto) 0.2 % Neutrophils # (Auto) 7.76 K/uL (1.4-6.5) Lymphocytes # (Auto) 3.92 K/uL (1.2-3.4) Monocytes # (Auto) 0.50 K/uL (0.11-0.59) Eosinophils # (Auto) 0.13 K/uL (0-0.5) Basophils # (Auto) 0.02 K/uL (0-0.2) Immature Granulocyte # (Auto) 0.05 K/uL (0.00-0.02) Prothrombin Time 10.0 SECONDS (9.0-12.0) Prothromb Time International Ratio 1.0 (0.9-1.1) Activated Partial Thromboplast Time 21.6 SECONDS (21.0-31.0) Partial Thromboplastin Ratio 0.8 Magnesium Level 1.9 mg/dl (1.8-2.4) Total Creatine Kinase 50 U/L (26-192) Creatine Kinase MB 4.9 ng/ml (0.5-3.6) Creatine Kinase MB Ratio 9.8 (0-3.0) Troponin I < 0.015 ng/ml (0-0.045) Beta-Hydroxybutyric Acid 18.52 mg/dL (0.2-2.81) Estimated Average Glucose 410 mg/dl Hemoglobin A1c 15.9 % (4.5-5.6) Urine Color YELLOW Urine Appearance CLEAR (CLEAR) Urine pH 5.5 (4.5-7.5) Urine Specific [place] 1.024 (1.000-1.030) Urine Protein NEG (NEG) Urine Glucose (UA) 3+ (NEG) Urine Ketones TRACE (NEG) Urine Occult Blood NEG (NEG) Urine Nitrite NEG (NEG) Urine Bilirubin NEG (NEG) Urine Urobilinogen NEG (NEG) Urine Leukocyte Esterase SMALL (NEG) Urine WBC (Auto) /hpf (0-5) Urine RBC (Auto) /hpf (0-4) Urine Hyaline Casts (Auto) /lpf (0-5) Urine Epithelial Cells (Auto) /lpf (0-5) Urine Bacteria (Auto) (NEG) Urine RBC 0-4 /hpf (0-4) Urine WBC 5-10 /hpf (0-5) Urine Epithelial Cells 5-10 /lpf (0-5) Urine Bacteria 1+ (NEG) Urine Yeast BUD W/ HYPHAE (NONE PRSENT) Urine Yeast (Auto) (NONE PRSENT) Test 10/16/17 19:48 10/17/17 07:31 10/18/17 05:16 10/19/17 05:47 Chemistry Specimen Hemolysis Thyroid Stimulating Hormone (TSH) 8.560 uIu/ml (0.300-4.500) Free Thyroxine 1.27 ng/dl (0.80-1.60) Total Bilirubin 0.2 mg/dl (0.2-1) Aspartate Amino Transf (AST/SGOT) 31 U/L (15-37) Alanine Aminotransferase (ALT/SGPT) 19 U/L (12-78) Alkaline Phosphatase 90 U/L (45-117) Total Protein 7.1 gm/dl (6.4-8.2) Albumin 2.6 gm/dl (3.4-5.0) Globulin 4.5 gm/dl (2.5-4.0) Albumin/Globulin Ratio 0.6 (0.9-2) Red Blood Count 3.67 M/uL (4.2-5.4) Mean Corpuscular Volume 88.6 fL (80-100) Mean Corpuscular Hemoglobin 28.6 pg (25-34) Mean Corpuscular Hemoglobin Concent 32.3 g/dl (32-36) RDW Standard Deviation 49.7 fL (36.4-46.3) RDW Coefficient of Variation 15.5 % (11.5-14.5) Mean Platelet Volume 11.1 fL (7.4-10.4) Anion Gap 6.0 mmol/L (3-11) Est Creatinine Clear Calc Drug Dose 67.5 ml/min Estimated GFR () 62.5 Estimated GFR (Non- 53.9 BUN/Creatinine Ratio 20.8 (10-20) Calcium Level 8.5 mg/dl (8.5-10.1) Test 10/19/17 11:54 Bedside Glucose 160 mg/dl (70-90) Date/Time Source Procedure Growth Status 10/17/17 10:10 Nasal MRSA DNA Surveillance Screen - Final Specimen Negative for MRSA by DNA Probe Complete 10/15/17 18:00 Urine , Clean Catch Urine Culture - Final MORE THAN THREE TYPES OF ORGANISMS IN... Complete Hemoglobin A1c Test 10/16/17 05:26 Range/Units Estimated Average Glucose 410 mg/dl Hemoglobin A1c 15.9 H 4.5-5.6 % Medical Emergencies . Who to Call and When: Medical Emergencies: If at any time you feel your situation is an emergency, please call 911 immediately. . Non-Emergent Contact Non-Emergency issues call your: Primary Care Provider Call Non-Emergent contact if: you have any medication questions . . "Provider Documentation" section prepared by Vel Hodges. .
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
[2017-10-19 15:58] VITALS: BP 140/77; PULSE 98; TEMP 36.3; O2SAT 100
== END 2017-10-19 16:54 | disposition home or self-care (01) | DRG 638 ==
LOC: C.EDB 14:04 → C.2T 17:21 → EDBEDREQSVC 17:37 → EDBEDREQTM 17:37 → ENRESERV 17:40 → C.MED 10-17 12:04
PROVIDERS: ADMIT Internal Medicine; ATTEND Hospitalist
DX: E11.00 Type 2 diabetes mellitus with hyperosmolarity without nonketotic hyperglycemic-hyperosmolar coma (NKHHC) (principal); N17.9 Acute kidney failure, unspecified; I10 Essential (primary) hypertension; F41.8 Other specified anxiety disorders; G43.909 Migraine, unspecified, not intractable, without status migrainosus; M79.7 Fibromyalgia; E78.2 Mixed hyperlipidemia; E03.9 Hypothyroidism, unspecified; Z87.891 Personal history of nicotine dependence; J45.909 Unspecified asthma, uncomplicated; Z79.4 Long term (current) use of insulin; Z79.84 Long term (current) use of oral hypoglycemic drugs; E66.9 Obesity, unspecified; Z83.3 Family history of diabetes mellitus; Z82.49 Family history of ischemic heart disease and other diseases of the circulatory system; Z87.890 Personal history of sex reassignment; Z88.1 Allergy status to other antibiotic agents; Z88.2 Allergy status to sulfonamides; Z91.040 Latex allergy status; Z91.14 Patient's other noncompliance with medication regimen

== ENCOUNTER 2020-02-19 18:45 | Inpatient (IN) ==
--- NOTE | 2020-02-19 19:15 | Emergency Department Note ---
Impression & Plan COVID-19, Pneumonia, Hyperglycemia ED Provider Note NAME: JASPER AIKEN AGE: 59 SEX: F : 1960 ARRIVES VIA: Ambulance INFORMANT: Patient, ED PROVIDER(S): Shashank Blackburn MD Chief Complaint: Weakness, fatigue, fall HPI: Patient did present with concern for increasing weakness. Patient states that she has been symptomatic since Sunday. The patient does live by herself and is disabled does have a caregiver. The patient has had the weakness with shortness of breath which is worse with exertion. The patient has had cough that is been productive and whitish in nature. The patient denies any known sick contacts. Patient denies any fevers or chills. Patient denies chest pains has had some nausea but without vomiting. Patient states that she was so weak today that when she got up to try and walk the patient did have a fall and fell just onto her buttocks. The patient denies any LOC, vomiting, or seizure-like activity that was reported. The patient remembers the whole event and is not amnestic. The patient states that she has felt some increasing confusion and has had poor appetite over the last several days. ROS: See HPI for pertinent positives and negatives. A total of 10 systems were re viewed and otherwise negative. Past medical history: See below Surgical history: See below Social history: See below Physical Exam: GENERAL: Tired in appearance, wearing glasses and a mask. NAD, non-toxic. EYE EXAM: Normal conjunctiva. PERRL, no anisocoria and EOM's grossly intact w/o pain. NECK: Supple, no nuchal rigidity, no adenopathy, non-tender. No signs of meningismus. LUNGS: Clear to auscultation. Normal chest wall mechanics. HEART: NSR, no MRG. ABDOMEN: Abdomen soft, non-tender, normo-active bowel sounds, no masses, no rebound or guarding. BACK: No CVA TTP. SKIN: No rashes and no bruising. UPPER EXTREMITIES: Upper extremities are grossly normal. LOWER EXTREMITIES: Grossly normal, no edema. Negative Homans' sign bilaterally. NEURO EXAM: A&O x3, cranial nerves II-XII grossly intact, normal speech, moves all 4 extremities on command w/o issue. Differential diagnoses: Infection, dehydration, metabolic abnormality, hypo/hyperglycemia, electrolyte disturbance, anemia, hypoxia, cardiac sources, intracerebral event, toxicologic, neurologic, as well as other pathologies. Course: Patient was seen and evaluated the bedside. Full history physical exam was performed. EKG: Indication: Shortness of breath Normal sinus rhythm, rate of 90, normal NE, wide QRS, right bundle branch block, left axis deviation, no significant change from comparison EKG November 29, 2017. Imaging Studies: Radiology results as stated below per my review in the radiologist's interpretation: XR chest 1V portable HISTORY: 59 years-old Female weakness acute weakness COMPARISON: Chest radiograph 03/20/2019 TECHNIQUE: Portable AP view of the chest FINDINGS: Cardiac silhouette is upper limits of normal in size. Patchy multifocal alveolar opacities are noted bilaterally. No pneumothorax, large pleural effusion or overt pulmonary edema. Bones appear grossly intact with degenerative changes of the shoulders and spine. IMPRESSION: Patchy bilateral alveolar opacities are suggestive of multifocal pneumonia. ACT 112: Negative or not required by law. The above report was generated using voice recognition software. It may contain grammatical, syntax or spelling errors. Electronically signed by: Yvan Manrique M.D. 02/19/2020 8:33 PM Dictated: 02/19/202031Transcribed: 02/19/202031 Cardiac monitoring: An order was placed for continuous cardiac monitoring. The monitor shows a rate of 90 with sinus rhythm. MDM: Patient did present with weakness and fatigue. Patient did have a ground-level fall but has no pain no head strike no head or neck pain and no blood thinners. The patient did have blood work completed. Patient does have hyponatremia although somewhat pseudohyponatremia given the patient's elevated blood glucose at 500. Patient does not have an anion gap or low bicarb. The patient not DKA. The patient's Covid is positive. The patient was ordered Dex and additionally after speak with hospitalist insulin. The patient has a normal white count. Very mild anemia with hemoglobin 11.2. Given the patient's Covid status with multifocal pneumonia and associated weakness given that the patient does have a disability lives at home with a caregiver do not believe the patient would be suitable for home. I did speak with the on-call hospitalist. The patient was admitted to the medicine service under Dr. Donohue. Past Med/Surg History Medical History (Updated 02/19/20 @ 23:23 by Shashank Blackburn MD) Anxiety Asthma COLD WEATHER FLARES UP/DENIES RECENT FLARE UP/ALBUTEROL ONLY PRN Bifascicular block Cataract Bilateral Chronic back pain Depression Diabetes mellitus with hyperglycemia, with long-term current use of insulin Fibromyalgia Foot drop LEFT GERD (gastroesophageal reflux disease) Hiatal hernia History of diverticulitis History of migraine History of torn meniscus of right knee Hx of irritable bowel syndrome Hyperlipidemia Hypertension Hypothyroidism Morbid obesity with BMI of 50.0-59.9, adult Neck pain Narrowing of C6-C7 with bone spurs. CAUSES NUMBNESS IN LEFT ARM Osteoarthritis PTSD (post-traumatic stress disorder) Umbilical hernia Surgical History History of colonoscopy History of D&C History of esophagogastroduodenoscopy (EGD) History of repair of ACL R History of repair of ACL L History of repair of left rotator cuff History of repair of right rotator cuff Family History Grandfather Family history of diabetes mellitus Mother Family history of diabetes mellitus Family/Other Family history of diabetes mellitus Brother Family history of diabetes mellitus Other Family history of colon cancer in mother Social History Smoking Status: Never smoker Second Hand Exposure: Yes (PREVIIOUS HAD 42 YRS); Hx Alcohol Use: No Hx Substance Use: No Preferred Language: Mongolian Communication Ability: Effective Polymer Chemist Required: No Beliefs That Will Affect Care: None Current Living Situation: Alone Feels Safe at Home: Yes Assistive Devices: Glasses and Walker Allergies Allergies Allergy/AdvReac Type Severity Reaction Status Date / Time amoxicillin Allergy Unknown hives Verified 02/19/20 20:47 dextromethorphan Allergy Unknown Hives Verified 02/19/20 20:47 [From NyQuil] doxylamine [From NyQuil] Allergy Unknown Hives Verified 02/19/20 20:47 latex Allergy Unknown RASH Verified 02/19/20 20:47 Sulfa (Sulfonamide Allergy Unknown RASH Verified 02/19/20 20:47 Antibiotics) wheat Allergy Unknown Hives AND Verified 02/19/20 20:47 ITCHING clarithromycin AdvReac Unknown HEART RACES Verified 02/19/20 20:47 Home Meds Home Medications Medication Instructions Recorded Confirmed amitriptyline 100 mg PO HS 12/06/17 02/19/20 metformin 1,000 mg PO BID 12/06/17 02/19/20 omeprazole 20 mg PO QPM 12/06/17 02/19/20 albuterol sulfate 1 - 2 puff INHALATION UD PRN 06/12/18 02/19/20 fluticasone propionate 1 spray INTRANASAL QAM 03/10/19 02/19/20 levothyroxine [Synthroid] 175 mcg PO QAM 03/10/19 02/19/20 atorvastatin 80 mg PO QPM 02/19/20 02/19/20 famotidine [Pepcid] 20 mg PO BID 02/19/20 02/19/20 insulin glargine [Lantus Solostar 60 unit SUBCUT BID 02/19/20 02/19/20 U-100 Insulin] insulin lispro 10 unit SUBCUT AC 02/19/20 02/19/20 lisinopril 40 mg PO DAILY 02/19/20 02/19/20 Results & Data (ED) Vital Signs Vital Signs - 24 hr 02/19/20 18:50 02/19/20 20:51 Temperature 36.9 C Temperature Source Temporal Artery Scan Pulse Rate 91 H Pulse Rate [Right Finger] 89 Respiratory Rate 18 35 H Blood Pressure 143/84 H Blood Pressure [Right Arm] 167/83 H Blood Pressure Mean 103 Blood Pressure Mean [Right Arm] 111 Pulse Oximetry 94 93 Oxygen Delivery Method Room Air Sepsis Recent Fever Within 48 Hours No Sepsis New/Unexplained Change in Mental Status No Sepsis Action Taken by Nursing No Action Required Home Medications Current Medication List: was personally reviewed by me Laboratory Data Attestation: I reviewed the patient's lab results. Result diagrams: 02/19/20 20:24 02/19/20 20:23 Lab Results 02/19/20 02/19/20 02/19/20 Range/Units 20:04 20:04 20:04 WBC (4.8-10.8) K/uL RBC (4.2-5.4) M/uL Hgb (12.0-16.0) g/dL Hct (37-47) % MCV (80-100) fL MCH (25-34) pg MCHC (32-36) g/dL RDW Std Deviation (36.4-46.3) fL RDW Coeff of Sylvia (11.5-14.5) % Plt Count (130-400) K/uL MPV (7.4-10.4) fL Immature Gran % (Auto) % Neut % (Auto) % Lymph % (Auto) % [place] % (Auto) % Eos % (Auto) % Baso % (Auto) % Neut # (Auto) (1.4-6.5) K/uL Lymph # (Auto) (1.2-3.4) K/uL [place] # (Auto) (0.11-0.59) K/uL Eos # (Auto) (0-0.5) K/uL Baso # (Auto) (0-0.2) K/uL Immature Gran # (Auto) (0.00-0.02) K/uL PT (9.0-12.0) Seconds INR (0.9-1.1) D-Dimer (0-500) ug/L FEU Sodium (136-145) mmol/L Potassium (3.5-5.1) mmol/L Chloride (98-107) mmol/L Carbon Dioxide (21-32) mmol/L Anion Gap (3-11) BUN (7-18) mg/dl Creatinine (0.6-1.2) mg/dl Est Cr Clr Drug Dosing Est GFR ( Amer) Est GFR (Non-Af Amer) BUN/Creatinine Ratio (10-20) Glucose (70-99) mg/dl Calcium (8.5-10.1) mg/dl Magnesium (1.8-2.4) mg/dl Total Bilirubin (0.2-1) mg/dl AST (15-37) U/L ALT (12-78) U/L Alkaline Phosphatase (45-117) U/L Troponin I (0-0.045) ng/ml Total Protein (6.4-8.2) gm/dl Albumin (3.4-5.0) gm/dl Globulin (2.5-4.0) gm/dl Albumin/Globulin Ratio (0.9-2) Beta-Hydroxybutyric Acd (0.2-2.81) mg/dl TSH (0.300-4.500) uIu/ml COVID-19 Eval [facility] A Molecular Assay Negative (Negative) Influ B Molecular Assay Negative (Negative) SARS-CoV-2, RNA, NAAT POSITIVE A* (NEGATIVE) 02/19/20 02/19/20 02/19/20 Range/Units 20:23 20:23 20:23 WBC (4.8-10.8) K/uL RBC (4.2-5.4) M/uL Hgb (12.0-16.0) g/dL Hct (37-47) % MCV (80-100) fL MCH (25-34) pg MCHC (32-36) g/dL RDW Std Deviation (36.4-46.3) fL RDW Coeff of Sylvia (11.5-14.5) % Plt Count (130-400) K/uL MPV (7.4-10.4) fL Immature Gran % (Auto) % Neut % (Auto) % Lymph % (Auto) % [place] % (Auto) % Eos % (Auto) % Baso % (Auto) % Neut # (Auto) (1.4-6.5) K/uL Lymph # (Auto) (1.2-3.4) K/uL [place] # (Auto) (0.11-0.59) K/uL Eos # (Auto) (0-0.5) K/uL Baso # (Auto) (0-0.2) K/uL Immature Gran # (Auto) (0.00-0.02) K/uL PT 11.4 (9.0-12.0) Seconds INR 1.1 (0.9-1.1) D-Dimer 820 H* (0-500) ug/L FEU Sodium 123 L (136-145) mmol/L Potassium 4.6 (3.5-5.1) mmol/L Chloride 90 L (98-107) mmol/L Carbon Dioxide 23 (21-32) mmol/L Anion Gap 10.0 (3-11) BUN 12 (7-18) mg/dl Creatinine 1.29 H (0.6-1.2) mg/dl Est Cr Clr Drug Dosing Not Reportable Est GFR ( Amer) 52.5 Est GFR (Non-Af Amer) 45.3 BUN/Creatinine Ratio 9.1 L (10-20) Glucose 557 H* (70-99) mg/dl Calcium 9.0 (8.5-10.1) mg/dl Magnesium 1.5 L (1.8-2.4) mg/dl Total Bilirubin 0.4 (0.2-1) mg/dl AST 28 (15-37) U/L ALT 12 (12-78) U/L Alkaline Phosphatase 87 (45-117) U/L Troponin I < 0.015 (0-0.045) ng/ml Total Protein 7.5 (6.4-8.2) gm/dl Albumin 2.3 L (3.4-5.0) gm/dl Globulin 5.2 H (2.5-4.0) gm/dl Albumin/Globulin Ratio 0.4 L (0.9-2) Beta-Hydroxybutyric Acd 7.34 H (0.2-2.81) mg/dl TSH 2.260 (0.300-4.500) uIu/ml COVID-19 Eval Order Influ A Molecular Assay (Negative) Influ B Molecular Assay (Negative) SARS-CoV-2, RNA, NAAT (NEGATIVE) 02/19/20 Range/Units 20:24 WBC 9.23 (4.8-10.8) K/uL RBC 3.79 L (4.2-5.4) M/uL Hgb 11.2 L (12.0-16.0) g/dL Hct 33.4 L (37-47) % MCV 88.1 (80-100) fL MCH 29.6 (25-34) pg MCHC 33.5 (32-36) g/dL RDW Std Deviation 44.5 (36.4-46.3) fL RDW Coeff of Sylvia 13.7 (11.5-14.5) % Plt Count 307 (130-400) K/uL MPV 10.5 H (7.4-10.4) fL Immature Gran % (Auto) 0.9 % Neut % (Auto) 78.1 % Lymph % (Auto) 16.7 % [place] % (Auto) 4.3 % Eos % (Auto) 0.0 % Baso % (Auto) 0.0 % Neut # (Auto) 7.21 H (1.4-6.5) K/uL Lymph # (Auto) 1.54 (1.2-3.4) K/uL [place] # (Auto) 0.40 (0.11-0.59) K/uL Eos # (Auto) 0.00 (0-0.5) K/uL Baso # (Auto) 0.00 (0-0.2) K/uL Immature Gran # (Auto) 0.08 H (0.00-0.02) K/uL PT (9.0-12.0) Seconds INR (0.9-1.1) D-Dimer (0-500) ug/L FEU Sodium (136-145) mmol/L Potassium (3.5-5.1) mmol/L Chloride (98-107) mmol/L Carbon Dioxide (21-32) mmol/L Anion Gap (3-11) BUN (7-18) mg/dl Creatinine (0.6-1.2) mg/dl Est Cr Clr Drug Dosing Est GFR ( Amer) Est GFR (Non-Af Amer) BUN/Creatinine Ratio (10-20) Glucose (70-99) mg/dl Calcium (8.5-10.1) mg/dl Magnesium (1.8-2.4) mg/dl Total Bilirubin (0.2-1) mg/dl AST (15-37) U/L ALT (12-78) U/L Alkaline Phosphatase (45-117) U/L Troponin I (0-0.045) ng/ml Total Protein (6.4-8.2) gm/dl Albumin (3.4-5.0) gm/dl Globulin (2.5-4.0) gm/dl Albumin/Globulin Ratio (0.9-2) Beta-Hydroxybutyric Acd (0.2-2.81) mg/dl TSH (0.300-4.500) uIu/ml COVID-19 Eval Order Influ A Molecular Assay (Negative) Influ B Molecular Assay (Negative) SARS-CoV-2, RNA, NAAT (NEGATIVE) Administered Medications Discontinued Medications Acetaminophen (Acetaminophen 325 Mg Tab) 650 mg PO NOW STA Stop: 02/19/20 19:33 Last Admin: 02/19/20 20:07 Dose: 650 mg Documented by: [id number] Benzonatate (Benzonatate 100 Mg Capsule) 100 mg PO NOW ONE Stop: 02/19/20 19:33 Last Admin: 02/19/20 20:07 Dose: 100 mg Documented by: [id number] Dexamethasone (Dexamethasone Sod Inj 10 Mg/Ml Vial) 10 mg IV NOW ONE Stop: 02/19/20 20:57 Last Admin: 02/19/20 21:27 Dose: 10 mg Documented by: [id number] Sodium Chloride (Nss 1000ml) 1,000 mls @ 999 mls/hr IV .Q1H1M WESLY Stop: 02/19/20 20:45 Last Infusion: 02/19/20 21:14 Dose: 0 mls/hr Documented by: [id number] Admin: 02/19/20 20:07 Dose: 999 mls/hr Documented by: [id number] Insulin Glargine (Insulin Glargine 100 Unit/Ml Vial) 60 units SQ NOW STA Stop: 02/19/20 22:12 Last Admin: 02/19/20 22:45 Dose: 60 units Documented by: [id number] Cosigned by: [id number] Insulin Human Regular (Novolin-R Insulin Per Unit Charge) 8 units IV NOW STA Stop: 02/19/20 21:11 Last Admin: 02/19/20 21:28 Dose: 8 units Documented by: [id number] Cosigned by: [id number] Ondansetron HCl (Ondansetron Inj 2 Mg/Ml 2 Ml Vial) 4 mg IV NOW STA Stop: 02/19/20 19:33 Last Admin: 02/19/20 20:07 Dose: 4 mg Documented by: [id number] Discharge Plan Visit Data Chief Complaint: Illness Stated Complaint: COUGH, ILLNESS, FALL ED Provider: Shashank Blackburn Discharge Problem: COVID-19, Pneumonia, Hyperglycemia Discharge Problem: Pneumonia Qualifiers: Pneumonia type: due to unspecified organism Laterality: bilateral Lung location: unspecified part of lung Qualified Code(s): J18.9 - Pneumonia, unspecified organism
[2020-02-19] MEDS ORDERED: ACETAMINOPHEN 325 MG TAB PO STA (19:32)
[2020-02-19] MEDS ORDERED: BENZONATATE 100 MG CAPSULE PO ONE (19:32)
[2020-02-19] MEDS ORDERED: ONDANSETRON INJ 2 MG/ML 2 ML VIAL IV STA (19:32)
[2020-02-19] MEDS ORDERED: SODIUM CHLORIDE 0.9% 1000ML 1,000 ML IV SCH (19:45)
[2020-02-19 20:34] LABS: Influenza A virus by PCR Negative (Negative); Influenza B virus by PCR Negative (Negative)
--- NOTE | 2020-02-19 20:35 | XRay Report ---
XR chest 1V portable HISTORY: 59 years-old Female weakness acute weakness COMPARISON: Chest radiograph 03/20/2019 TECHNIQUE: Portable AP view of the chest FINDINGS: Cardiac silhouette is upper limits of normal in size. Patchy multifocal alveolar opacities are noted bilaterally. No pneumothorax, large pleural effusion or overt pulmonary edema. Bones appear grossly i ntact with degenerative changes of the shoulders and spine. IMPRESSION: Patchy bilateral alveolar opacities are suggestive of multifocal pneumonia. ACT 112: Negative or not required by law. The above report was generated using voice recognition software. It may contain grammatical, syntax o r spelling errors. Electronically signed by: Yvan Manrique M.D. 02/19/2020 8:33 PM
[2020-02-19 20:36] LABS: Hematocrit (blood only) 33.4 % (37-47); Hemoglobin 11.2 g/dL (12.0-16.0); Mean Corpuscular Hemoglobin 29.6 pg (25-34); Mean Corpuscular Hgb Conc 33.5 g/dL (32-36); Mean Corpuscular Volume 88.1 fL (80-100); Mean Platelet Volume 10.5 fL (7.4-10.4); Platelet Count 307 K/uL (130-400); RDW Coefficient of Variation 13.7 % (11.5-14.5); RDW Standard Deviation 44.5 fL (36.4-46.3); Red Blood Count 3.79 M/uL (4.2-5.4); White Blood Count 9.23 K/uL (4.8-10.8)
[2020-02-19 20:50] LABS: INR 1.1 (0.9-1.1); Prothrombin Time 11.4 Seconds (9.0-12.0)
[2020-02-19 20:55] LABS: Immature Granulocytes # (auto) 0.08 K/uL (0.00-0.02); Immature Granulocytes % (auto) 0.9 %; Lymphocytes # (auto) 1.54 K/uL (1.2-3.4); Lymphocytes % (auto) 16.7 %; Monocytes % (auto) 4.3 %; Neutrophils # (auto) 7.21 K/uL (1.4-6.5); Neutrophils % (auto) 78.1 %
[2020-02-19] MEDS ORDERED: DEXAMETHASONE SOD INJ 10 MG/ML VIAL IV ONE (20:56)
[2020-02-19 20:59] LABS: Alanine Aminotransferase 12 U/L (12-78); Albumin Globulin Ratio 0.4 (0.9-2); Albumin Level 2.3 gm/dl (3.4-5.0); Aspartate Aminotransferase 28 U/L (15-37); BUN Creatinine Ratio 9.1 (10-20); Bilirubin,Total 0.4 mg/dl (0.2-1); Blood Urea Nitrogen 12 mg/dl (7-18); Carbon Dioxide 23 mmol/L (21-32); Chloride 90 mmol/L (98-107); Est GFR (African American) 52.5; Est GFR (Non-African American) 45.3; Globulin 5.2 gm/dl (2.5-4.0); Glucose 557 mg/dl (70-99); Magnesium 1.5 mg/dl (1.8-2.4); Potassium 4.6 mmol/L (3.5-5.1); Sodium 123 mmol/L (136-145); Total Protein 7.5 gm/dl (6.4-8.2)
[2020-02-19 21:04] LABS: Alkaline Phosphatase 87 U/L (45-117); Troponin I < 0.015 ng/ml (0-0.045)
[2020-02-19] MEDS ORDERED: NovoLIN-R INSULIN PER UNIT CHARGE IV STA (21:10)
[2020-02-19 21:19] LABS: Beta-Hydroxybutyrate 7.34 mg/dl (0.2-2.81)
--- NOTE | 2020-02-19 22:05 | History & Physical Report ---
Date of Service February 19, 2020 Assessment & Plan (1) Pneumonia due to COVID-19 virus: Pneumonia due to COVID-19 virus with hypoxia- Convalescent plasma, consent obtained Remdesivir IV per protocol Ceftriaxone 2 g IV daily Ventolin HFA 2 puffs 4 times daily, and every 2 hours as needed Hold Decadron until blood sugars are under control Nasal cannula oxygen, titrate to keep pulse ox 94 to 95% Present on Admission?: Yes (2) Hypoxia: (3) Generalized weakness: Her primary symptoms of generalized weakness, and ambulatory dysfunction because of that. Likely a combination of factors: COVID-19 viral pneumonia with hypoxia, in the setting of uncontrolled blood sugars Present on Admission?: Yes (4) Hyperglycemia due to type 2 diabetes mellitus: Patient admitted that she did not take her Lantus insulin this morning Her hemoglobin A1c was 13.6, suggesting that she frequently misses her long- acting insulin. Her glucose was 557 upon admission, and did receive Decadron 10 mg IV from the ED, so expect that her sugar will likely increase significantly. We will give her long-acting insulin 60 units of Lantus now, and regular insulin IV as needed overnight, to try to get sugars under control. We will hold any further Decadron until sugars are under control. We will place on Accu-Cheks before meals and at bedtime with NovoLog coverage for scale, and as needed regular insulin IV prior to that as noted above Present on Admission?: Yes (5) Hypertension: Continue lisinopril 40 mg daily Present on Admission?: Yes (6) Hypercholesteremia: Continue atorvastatin 80 mg daily Present on Admission?: Yes (7) Anxiety: Continue amitriptyline 100 mg at bedtime Present on Admission?: Yes (8) Hypothyroidism: Continue levothyroxine 105 mcg daily Present on Admission?: Yes Admission and Anticipated Discharge Date Admission Date: February 19, 2020 History of Present Illness Chief Complaint: The patient presents to the emergency department with increasing generalized weakness over the past 4 days Primary Care Provider: Natali Langston DO The patient is a 59-year-old female with a past medical history including hypertension, hypercholesterolemia, uncontrolled diabetes mellitus, anxiety, heart block, migraine, hypothyroidism, diverticular disease, fibromyalgia, urinary tract infection and chronic diastolic CHF. The patient is disabled, and has a caregiver. Her primary presenting symptom was that of increasing generalized weakness to the point that when she will try to get up to walk she fell landed on her buttocks without injury. Vital signs of significance: Pulse ox 91% on room air Work-up in the emergency department included the following abnormal laboratories: Hemoglobin 11.2 sodium 123 creatinine 1.29 glucose 557 magnesium 1.5 albumin 2.3. She was COVID-19 positive. Imaging studies: Chest x-ray showed patchy bilateral alveolar opacities suggestive of multifocal pneumonia Allergies Allergy/AdvReac Type Severity Reaction Status Date / Time amoxicillin Allergy Unknown hives Verified 02/19/20 20:47 dextromethorphan Allergy Unknown Hives Verified 02/19/20 20:47 [From NyQuil] doxylamine [From NyQuil] Allergy Unknown Hives Verified 02/19/20 20:47 latex Allergy Unknown RASH Verified 02/19/20 20:47 Sulfa (Sulfonamide Allergy Unknown RASH Verified 02/19/20 20:47 Antibiotics) wheat Allergy Unknown Hives AND Verified 02/19/20 20:47 ITCHING clarithromycin AdvReac Unknown HEART RACES Verified 02/19/20 20:47 Home Medications Medication Instructions Recorded Confirmed Type amitriptyline 100 mg PO HS 12/06/17 02/19/20 History metformin 1,000 mg PO BID 12/06/17 02/19/20 History omeprazole 20 mg PO QPM 12/06/17 02/19/20 History albuterol sulfate 1 - 2 puff INHALATION UD PRN 06/12/18 02/19/20 History fluticasone propionate 1 spray INTRANASAL QAM 03/10/19 02/19/20 History levothyroxine [Synthroid] 175 mcg PO QAM 03/10/19 02/19/20 History atorvastatin 80 mg PO QPM 02/19/20 02/19/20 History famotidine [Pepcid] 20 mg PO BID 02/19/20 02/19/20 History insulin glargine [Lantus Solostar 60 unit SUBCUT BID 02/19/20 02/19/20 History U-100 Insulin] insulin lispro 10 unit SUBCUT AC 02/19/20 02/19/20 History lisinopril 40 mg PO DAILY 02/19/20 02/19/20 History Past Med/Surg History Medical History (Updated 02/20/20 @ 06:02 by Quincy Pond MD) Anxiety Asthma COLD WEATHER FLARES UP/DENIES RECENT FLARE UP/ALBUTEROL ONLY PRN Bifascicular block Cataract Bilateral Chronic back pain Depression Diabetes mellitus with hyperglycemia, with long-term current use of insulin Fibromyalgia Foot drop LEFT GERD (gastroesophageal reflux disease) Hiatal hernia History of diverticulitis History of migraine History of torn meniscus of right knee Hx of irritable bowel syndrome Hyperlipidemia Hypertension Hypothyroidism Morbid obesity with BMI of 50.0-59.9, adult Neck pain Narrowing of C6-C7 with bone spurs. CAUSES NUMBNESS IN LEFT ARM Osteoarthritis PTSD (post-traumatic stress disorder) Umbilical hernia Surgical History History of colonoscopy History of D&C History of esophagogastroduodenoscopy (EGD) History of repair of ACL R History of repair of ACL L History of repair of left rotator cuff History of repair of right rotator cuff Family History Grandfather Family history of diabetes mellitus Mother Family history of diabetes mellitus Family/Other Family history of diabetes mellitus Brother Family history of diabetes mellitus Other Family history of colon cancer in mother Social History Smoking Status: Never smoker Second Hand Exposure: Yes; Hx Alcohol Use: No Hx Substance Use: No Preferred Language: Indian Communication Ability: Effective Inserter Promotional Item Required: No Beliefs That Will Affect Care: None Current Living Situation: Alone Feels Safe at Home: Yes Assistive Devices: Glasses and Walker Review of Systems Review of Systems: The patient denies chest pain, palpitations, lower extremity swelling, sore throat, fevers, chills, sweats, nausea, vomiting, diarrhea , constipation, abdominal pain, pelvic pain, blood in urine or stool, dysuria, urinary frequency or urgency, headache, memory loss, loss of consciousness, rash, abnormal bruising or bleeding, focal weakness, numbness or tingling in arms or legs, generalized arthralgias or myalgias, back or neck pain, or night sweats. The review of systems is otherwise negative other than for that already noted above, and at least 10 systems have been reviewed. Physical Exam Physical Exam: The patient is awake, alert and oriented 3, normocephalic and atraumatic, lying in bed and in no acute distress. HEENT--PERRL, EOMI, mucous membranes and oropharynx normal. Neck--supple. No JVD. No bruits. Thyroid normal, trachea midline, no adenopathy. Heart--normal S1 and S2. No murmurs, rubs or gallops. Lungs--coarse breath sounds bilaterally. No respiratory distress, no accessory muscle use. Abdomen--normal bowel sounds and soft. Nontender. Nondistended. Morbidly obese Extremities--no cyanosis or clubbing. No edema. Dermatologic--normal skin turgor, normal color, no abnormal lymph nodes, no rash. Neurologic--cranial nerves II through XII grossly intact. Rheumatologic--normal range of motion. Psychiatric--normal affect. Results & Data Results & Data ([facility]) Vital Signs (Past 12 Hours) Vital Signs Temp Pulse Pulse Resp BP BP Pulse Ox 02/19/20 20:51 89 35 H 167/83 H 93 02/19/20 18:50 98.4 F 91 H 18 143/84 H 94 Laboratory Results Laboratory Results WBC 9.23 K/uL (4.8-10.8) 02/19/20 20:24 RBC 3.79 M/uL (4.2-5.4) L 02/19/20 20:24 Hgb 11.2 g/dL (12.0-16.0) L 02/19/20 20:24 Hct 33.4 % (37-47) L 02/19/20 20:24 MCV 88.1 fL (80-100) 02/19/20 20:24 MCH 29.6 pg (25-34) 02/19/20 20:24 MCHC 33.5 g/dL (32-36) 02/19/20 20:24 RDW Std Deviation 44.5 fL (36.4-46.3) 02/19/20 20:24 RDW Coeff of Sylvia 13.7 % (11.5-14.5) 02/19/20 20:24 Plt Count 307 K/uL (130-400) 02/19/20 20:24 MPV 10.5 fL (7.4-10.4) H 02/19/20 20:24 Immature Gran % (Auto) 0.9 % 02/19/20 20:24 Neut % (Auto) 78.1 % 02/19/20 20:24 Lymph % (Auto) 16.7 % 02/19/20 20:24 [place] % (Auto) 4.3 % 02/19/20 20:24 Eos % (Auto) 0.0 % 02/19/20 20:24 Baso % (Auto) 0.0 % 02/19/20 20:24 Neut # (Auto) 7.21 K/uL (1.4-6.5) H 02/19/20 20:24 Lymph # (Auto) 1.54 K/uL (1.2-3.4) 02/19/20 20:24 [place] # (Auto) 0.40 K/uL (0.11-0.59) 02/19/20 20:24 Eos # (Auto) 0.00 K/uL (0-0.5) 02/19/20 20:24 Baso # (Auto) 0.00 K/uL (0-0.2) 02/19/20 20:24 Immature Gran # (Auto) 0.08 K/uL (0.00-0.02) H 02/19/20 20:24 PT 11.4 Seconds (9.0-12.0) 02/19/20 20: INR 1.1 (0.9-1.1) 02/19/20 20:23 D-Dimer 820 ug/L FEU (0-500) H* 02/19/20 20:23 Sodium 123 mmol/L (136-145) L 02/19/20 20:23 Potassium 4.6 mmol/L (3.5-5.1) 02/19/20 20: Chloride 90 mmol/L (98-107) L 02/19/20 20:23 Carbon Dioxide 23 mmol/L (21-32) 02/19/20 20:23 Anion Gap 10.0 (3-11) 02/19/20 20:23 BUN 12 mg/dl (7-18) 02/19/20 20:23 Creatinine 1.29 mg/dl (0.6-1.2) H 02/19/20 20:23 Est Cr Clr Drug Dosing Not Reportable 02/19/20 20: Est GFR ( Amer) 52.5 02/19/20 20:23 Est GFR (Non-Af Amer) 45.3 02/19/20 20: BUN/Creatinine Ratio 9.1 (10-20) L 02/19/20 20:23 Glucose 557 mg/dl (70-99) H* 02/19/20 20: POC Glucose 529 mg/dl (70-99) H* 02/20/20 04:04 Estimat Average Glucose 344 mg/dl 02/20/20 00:37 Hemoglobin A1c 13.6 % (4.5-5.6) H 02/20/20 00:37 Calcium 9.0 mg/dl (8.5-10.1) 02/19/20 20: Magnesium 1.5 mg/dl (1.8-2.4) L 02/19/20 20: Total Bilirubin 0.4 mg/dl (0.2-1) 02/19/20 20: AST 28 U/L (15-37) 02/19/20 20: ALT 12 U/L (12-78) 02/19/20 20:23 Alkaline Phosphatase 87 U/L (45-117) 02/19/20 20:23 Troponin I < 0.015 ng/ml (0-0.045) 02/19/20 20: Total Protein 7.5 gm/dl (6.4-8.2) 02/19/20 20: Albumin 2.3 gm/dl (3.4-5.0) L 02/19/20 20: Globulin 5.2 gm/dl (2.5-4.0) H 02/19/20 20:23 Albumin/Globulin Ratio 0.4 (0.9-2) L 02/19/20 20:23 Beta-Hydroxybutyric Acd 7.34 mg/dl (0.2-2.81) H 02/19/20 20:23 TSH 2.260 uIu/ml (0.300-4.500) 02/19/20 20:23 COVID-19 Eval Order [facility] 02/19/20 20:04 Influ A Molecular Assay Negative (Negative) 02/19/20 20:04 Influ B Molecular Assay Negative (Negative) 02/19/20 20:04 SARS-CoV-2, RNA, NAAT POSITIVE (NEGATIVE) A* 02/19/20 20:04 Blood Type A Positive 02/20/20 00:37 Antibody Screen NEGATIVE 02/20/20 00:37 Diagnostic Findings [facility], [id number] XRay Report Patient: JASPER AIKEN Date: 02/19/20MR#: [id number]: [address]Acct ID:[id number]: [facility] Zip: [place], [place] [address]Mwg: 59Location: EDSex: FRoom/Bed:Att Phy:Diagnosis: COUGH, ILLNESS, FALLPri Phy: Natali LangstonDJoseOJoseService Date: 02/19/20Fam Phy:Inte rpreting Phy: Bryan ManriqueAdmit Phy: Ordering Phy: Shashank Blackburn MD cc: ~ XR chest 1V portable HISTORY: 59 years-old Female weakness acute weakness COMPARISON: Chest radiograph 03/20/2019 TECHNIQUE: Portable AP view of the chest FINDINGS: Cardiac silhouette is upper limits of normal in size. Patchy multifocal alveolar opacities are noted bilaterally. No pneumothorax, large pleural effusion or overt pulmonary edema. Bones appear grossly intact with degenerative changes of the shoulders and spine. IMPRESSION: Patchy bilateral alveolar opacities are suggestive of multifocal pne umonia. ACT 112: Negative or not required by law. The above report was generated using voice recognition software. It may contain grammatical, syntax or spelling errors. Electronically signed by: Yvan Manriuqe M.D. 02/19/2020 8:33 PM Dictated: 02/19/202031Transcribed: 02/19/202031 Code Status & VTE Plan Code Status Full code VTE Prophylaxis Plan VTE Prophylaxis will be ordered: Yes PG Care Time/CCT Total # of Minutes Spent Total Time Spent with Patient: Total time spent is greater than 50% in coordination of care (as documented) at patient's floor/unit and/or counseling patient: Coding Level of Care Code 49882 Initial Inpt Care Lvl 3 Diagnoses Pneumonia due to COVID-19 virus U07.1; J12.89 Hypoxia R09.02 Generalized weakness R53.1 Hyperglycemia due to type 2 diabetes mellitus E11.65 Hypertension I10 Hypertension type: essential hypertension Hypercholesteremia E78.00 Anxiety F41.9 Hypothyroidism E03.9 (1) Hypertension Hypertension type: essential hypertension Qualified Code(s): I10 - Essential (primary) hypertension
[2020-02-19] MEDS ORDERED: INSULIN GLARGINE 100 UNIT/ML VIAL SQ STA (22:11)
[2020-02-19 22:37] LABS: D Dimer 820 ug/L FEU (0-500)
[2020-02-20] MEDS ORDERED: CARBOHYDRATES FOR HYPOGLYCEMIA PO PRN (00:10)
[2020-02-20] MEDS ORDERED: ACETAMINOPHEN 325 MG TAB PO PRN (00:10)
[2020-02-20] MEDS ORDERED: GLUCOSE 40% GEL 15 GM TUBE PO PRN (00:10)
[2020-02-20] MEDS ORDERED: GLUCAGON FOR INJ 1 MG VIAL SQ PRN (00:10)
[2020-02-20] MEDS ORDERED: DEXTROSE 50% 50 ML SYRINGE IV PRN (00:10)
[2020-02-20] MEDS ORDERED: GLUCOSE 10 TABS/TUBE PO PRN (00:10)
[2020-02-20] MEDS ORDERED: POLYETHYLENE (MIRALAX) 17 GM PACK PO PRN (00:10)
[2020-02-20] MEDS ORDERED: REMDESIVIR 200 MG in SODIUM CHLORIDE 0.9% 210 ML IV ONE (01:00)
[2020-02-20] MEDS ORDERED: INSULIN GLARGINE 100 UNIT/ML VIAL SC ONE (01:15)
[2020-02-20] MEDS: FAMOTIDINE 20 MG TAB PO SCH ×3 (01:39→20:34)
[2020-02-20] MEDS: SODIUM CHLORIDE 0.9% 10ML FLUSH IV SCH (01:42)
[2020-02-20] MEDS ORDERED: INSULIN HUMAN REGULAR PER UNIT 10 UNITS in SYRINGE 9.9 ML IV STA (04:35)
[2020-02-20] MEDS ORDERED: INSULIN GLARGINE 100 UNIT/ML VIAL SC STA (04:40)
[2020-02-20 05:41] LABS: Estimated Average Glucose 344 mg/dl; Hemoglobin A1C 13.6 % (4.5-5.6)
[2020-02-20] MEDS: LEVOTHYROXINE SODIUM 175 MCG TABLET PO SCH (05:45)
[2020-02-20 06:36] LABS: Appearance Urine Clear (Clear); Bilirubin Urine Negative (Negative); Blood Urine Negative (Negative); Color Urine Yellow; Glucose Urine UA 3+ (Negative); Ketones Urine 1+ (Negative); Leukocyte Esterase Urine Negative (Negative); Nitrite Urine Negative (Negative); Protein Urine 2+ (Negative); Specific Gravity Urine 1.026 (1.000-1.030); Urobilinogen Urine Negative (Negative)
[2020-02-20 07:01] LABS: Epithelial Cell Urine 20-30 /lpf (0-5)
[2020-02-20 07:02] LABS: RBC Urine 0-4 /hpf (0-4)
[2020-02-20 07:03] LABS: Bacteria Urine 1+ (Negative)
[2020-02-20] MEDS ORDERED: INSULIN ASPART 100 UNITS/ML 3 ML PEN SC SCH (07:30)
[2020-02-20] MEDS ORDERED: PHARMACY GLYCEMIC MGMT CONSULT PRN (08:24)
[2020-02-20] MEDS: ENOXAPARIN INJ 60 MG/0.6 ML SYR SQ SCH ×2 (08:43→20:34)
[2020-02-20] MEDS: FLUTICASONE PROPIONATE NA SPR 16 GM BTL NAE SCH (08:46)
[2020-02-20] MEDS: lisinopril 40 MG TAB PO SCH (08:47)
[2020-02-20] MEDS ORDERED: INSULIN GLARGINE SOLOSTAR 100 UNITS/ML 3 ML PEN SQ SCH (09:00)
[2020-02-20] MEDS ORDERED: INSULIN GLARGINE 100 UNIT/ML VIAL SC SCH (09:00)
[2020-02-20] MEDS ORDERED: dexAMETHasone 6 MG in SYRINGE 0 ML IV SCH (09:00)
[2020-02-20] MEDS ORDERED: cefTRIAXone SODIUM 2,000 MG in DEXTROSE 5% 50 ML IV SCH (09:00)
[2020-02-20] MEDS ORDERED: INSULIN HUMAN REGULAR PER UNIT 10 UNITS in SYRINGE 9.9 ML IV ONE ×2 (09:30→12:30)
[2020-02-20] MEDS: INSULIN ASPART 100 UNITS/ML 3 ML PEN SC SCH ×6 (10:22→20:32)
[2020-02-20] MEDS: MAGNESIUM OXIDE 400 MG TAB PO SCH ×2 (14:00→20:33)
[2020-02-20] MEDS: SODIUM CHLORIDE 0.9% 1000ML 1,000 ML IV SCH (14:01)
[2020-02-20 14:27] LABS: BUN Creatinine Ratio 12.9 (10-20); Calcium 8.8 mg/dl (8.5-10.1); Creatinine Clr Calc Pharmacy 46.4 ml/min; Est GFR (African American) 41.4; Est GFR (Non-African American) 35.7; Potassium 4.1 mmol/L (3.5-5.1)
--- NOTE | 2020-02-20 14:28 | Electrocardiogram Report ---
Test Reason : Blood Pressure : / mmHG Vent. Rate : 090 BPM Atrial Rate : 090 BPM P-R Int : 146 ms QRS Dur : 146 ms QT Int : 402 ms P-R-T Axes : 013 -80 023 degrees QTc Int : 491 ms Normal sinus rhythm Right bundle branch block Left anterior fascicular block Bifascicular block Possible Lateral infarct , age undetermined Abnormal ECG When compared with ECG of 07-DEC-2017 10:48, No significant change was found Confirmed by Tom Lopes ([id number]) on 02/20/2020 2:27:53 PM Referred By: REFERRED SELF Confirmed By:Tom Lopes
[2020-02-20 14:39] LABS: Beta-Hydroxybutyrate 3.4 mg/dl (0.2-2.81)
--- NOTE | 2020-02-20 14:59 | Pharmacy Report ---
Glycemic Control Consultation - Date of Service February 20, 2020 - Scope Scope: Glycemic Pharmacist consulted for glycemic control and to write orders per [facility] inpatient glycemic control protocol. - Objective Weight: 115.485 kg Accuchecks BSG (last 24hrs): 02/19/20 02/19/20 02/19/20 20:23 22:07 23:54 Glucose 557 H* POC Glucose 462 H* 471 H* 02/19/20 02/19/20 02/20/20 23:55 23:58 04:02 Glucose POC Glucose 492 H* 439 H* 526 H* 02/20/20 02/20/20 02/20/20 04:04 07:51 09:45 Glucose POC Glucose 529 H* 493 H* 549 H* 02/20/20 02/20/20 02/20/20 12:04 13:37 13:49 Glucose 478 H* POC Glucose 472 H* 494 H* Laboratory Data (last 24hrs): 02/19/20 02/20/20 20:23 13:37 Potassium 4.6 4.1 Carbon Dioxide 23 22 Anion Gap 10.0 8.0 Creatinine 1.29 H 1.57 H Est Cr Clr Drug Dosing Not Reportable 46.4 Beta-Hydroxybutyric Acd 7.34 H 3.40 H HbA1c: Hemoglobin A1c 13.6 % (4.5-5.6) H 02/20/20 00:37 - Recent Pertinent Medications Outpatient Anti-diabetic Regimen: * Lantus 60 units SQ BID * A1c = 13.6% on 02/20/20 The patient received * Basal insulin: Lantus 60 units SQ BID. Additionally 30 units of Lantus at 0540 AM today * Correctional Insulin: Novolog Correction per scale ACHS Goal Range: Low 120 mg/dL - High 150 mg/dL Correction Factor: 25 mg/dL/unit * Prandial insulin: Per carb ratio of 1 unit per 10 grams CHO consumed * Oral Agents: Metformin 1000 mg PO BID Risk Factors for Insulin Resistance: * Steroids: Dex 10 mg IVP x 1 last night * Infection: Rocephin started initially then d/c * IVF: NS @ 80 ml/hr * Diet: T2DM - Assessment & Plan Assessment & Plan: ASSESSMENT: * 59 y/o admitted s/p fall and COVID positive. Patient with Type 2 diabetes managed at home with Lantus BID and Humalog with meals and oral Metformin. * Oral Metformin was held since admission and utilizing SQ basal bolus insulin regimen which is the recommended regimen for inpatient glycemic control. * Patient's BSGs have been elevated above 400 since admission. * Since pharmacy consult obtained for glycemic management, patient was started on a Q2h Novolog regimen since 10 AM today utilizing a weight based, stress factor of 2 for parameters. This has worked out to be almost 0.2 units/kg/dose every 2 hrs since this AM. * Additionally with each high BSG since 10 AM, patient has also been receiving 10 units of IV Regular Insulin bolus. * If BSG continues to be elevated at 1600 check, then will most likely start an Insulin drip for her. PLAN FOR INPATIENT GLYCEMIC CONTROL: * Holding outpatient oral diabetes medications * Basal insulin * Lantus 60 units SQ BID. Additionally patient received 30 units at 0540 AM today. * Bolus insulin: * NovoLog per scale ACHS or Q6hrs while NPO * Goal Range: Low 120 mg/dL - High 150 mg/dL * Correction Factor: 20 mg/dL/unit * Nutritional / Prandial insulin per carb ratio of 1 unit per 7 grams CHO consumed * Please note that the plan above was derived based on current level of insulin resistance and hospital stress. These recommendations are appropriate for inpatient admission only. Plan of care upon discharge will need to be reassessed to avoid potential outpatient hypo/hyperglycemia. Thank you.
--- NOTE | 2020-02-20 16:28 | Hospitalist Progress Note ---
Date of Service February 20, 2020 Assessment & Plan (1) Pneumonia due to COVID-19 virus: Pneumonia due to COVID-19 virus -- no further hypoxemia, saturations 95% on room air Convalescent plasma, cancel transfusion stop Remdesivir no need for Decadron Ceftriaxone 2 g IV daily Ventolin HFA 2 puffs 4 times daily, and every 2 hours as needed (2) Hypoxia: resolved quickly stop Decadron and Remdesivir (3) Generalized weakness: Her primary symptoms of generalized weakness, and ambulatory dysfunction because of that. Likely a combination of factors: COVID-19 viral pneumonia with hypoxia, in the setting of uncontrolled blood sugars PT/OT consultations (4) Hyperglycemia due to type 2 diabetes mellitus: Patient admitted that she did not take her Lantus insulin morning of admission Her hemoglobin A1c was 13.6, suggesting that she frequently misses her long- acting insulin. Her glucose was 557 upon admission, and did receive Decadron 10 mg IV from the ED, so expect that her sugar will likely increase significantly. consulted glycemic management today, sugars slowly improving with regular insulin dosing resume basal / bolus regimen no plan to resume Decadron so sugars should be easier to manage (5) Hypertension: Continue lisinopril 40 mg daily BP stable (6) Hypercholesteremia: Continue atorvastatin 80 mg daily (7) Anxiety: Continue amitriptyline 100 mg at bedtime (8) Hypothyroidism: Continue levothyroxine 105 mcg daily Admission and Anticipated Discharge Date Admission Date: February 19, 2020 Subjective patient doing well, no dyspnea, no hypoxia, no chest pain, no fever sugars extremely elevated after dexamethasone 10mg in the ED reviewed chart, clearly has COVID pneumonia however, since she is not hypoxemic will stop Remdesivir, decadron, no need for plasma discussed with pharmacy about glycemic consult sugars improving with several doses of regular insulin discussed trying to go home if sugars stable, she agrees Review of Systems Constitutional: + weakness; no fever and no fatigue Respiratory: + dyspnea on exertion; no cough and no dyspnea Cardiovascular: no chest pain and no edema Gastrointestinal: no abdominal pain, no nausea, no vomiting, no constipation and no diarrhea/loose stools Physical Exam Constitutional: WD/WN, vitals as above + obese; no acute distress Neck: trachea midline, no thyromegaly Respiratory: normal respiratory effort, lungs clear to auscultation Cardiovascular: RRR, no murmur, no edema Gastrointestinal (Abdomen): normal bowel sounds, soft, nontender, no hepatosplenomegaly Musculoskeletal: no cyanosis or clubbing, extremities motor strength 5/5 Skin: no rashes, warm and dry Neurologic: patellar DTR's 2+ bilat, sensation intact and PERRL, EOMI, accommodation nl, no face palsy, no dysarthria Psychiatric: A+Ox3, euthymic affect Lymphatic: no cervical or axillary lymphadenopathy Results & Data Results & Data ([facility]) Vital Signs (Past 12 Hours) Vital Signs Temp Pulse Pulse Resp BP BP Pulse Ox 02/20/20 15:36 36.9 C 75 17 136/84 02/20/20 10:33 36.8 C 85 20 141/79 H 95 02/20/20 07:53 37.1 C 77 20 153/85 H 91 02/20/20 07:34 80 Laboratory Results Laboratory Results - last 24 hr 02/19/20 02/19/20 02/19/20 20:04 20:04 20:04 WBC RBC Hgb Hct MCV MCH MCHC RDW Std Deviation RDW Coeff of Sylvia Plt Count MPV Immature Gran % (Auto) Neut % (Auto) Lymph % (Auto) [place] % (Auto) Eos % (Auto) Baso % (Auto) Neut # (Auto) Lymph # (Auto) [place] # (Auto) Eos # (Auto) Baso # (Auto) Immature Gran # (Auto) PT INR D-Dimer Sodium Potassium Chloride Carbon Dioxide Anion Gap BUN Creatinine Est Cr Clr Drug Dosing Est GFR ( Amer) Est GFR (Non-Af Amer) BUN/Creatinine Ratio Glucose POC Glucose Estimat Average Glucose Hemoglobin A1c Calcium Magnesium Total Bilirubin AST ALT Alkaline Phosphatase Troponin I Total Protein Albumin Globulin Albumin/Globulin Ratio Beta-Hydroxybutyric Acd TSH Urine Color Urine Appearance Urine pH Ur Specific [place] Urine Protein Urine Glucose (UA) Urine Ketones Urine Blood Urine Nitrite Urine Bilirubin Urine Urobilinogen Ur Leukocyte Esterase Urine RBC Urine WBC Ur Epithelial Cells Urine Bacteria Urine Yeast COVID-19 Eval [facility] C Ab Screen Influ A Molecular Assay Negative Influ B Molecular Assay Negative SARS-CoV-2, RNA, NAAT POSITIVE A* Blood Type Antibody Screen 02/19/20 02/19/20 02/19/20 20:23 20:23 20:23 WBC RBC Hgb Hct MCV MCH MCHC RDW Std Deviation RDW Coeff of Sylvia Plt Count MPV Immature Gran % (Auto) Neut % (Auto) Lymph % (Auto) [place] % (Auto) Eos % (Auto) Baso % (Auto) Neut # (Auto) Lymph # (Auto) [place] # (Auto) Eos # (Auto) Baso # (Auto) Immature Gran # (Auto) PT 11.4 INR 1.1 D-Dimer 820 H* Sodium 123 L Potassium 4.6 Chloride 90 L Carbon Dioxide 23 Anion Gap 10.0 BUN 12 Creatinine 1.29 H Est Cr Clr Drug Dosing Not Reportable Est GFR ( Amer) 52.5 Est GFR (Non-Af Amer) 45.3 BUN/Creatinine Ratio 9.1 L Glucose 557 H* POC Glucose Estimat Average Glucose Hemoglobin A1c Calcium 9.0 Magnesium 1.5 L Total Bilirubin 0.4 AST 28 ALT 12 Alkaline Phosphatase 87 Troponin I < 0.015 Total Protein 7.5 Albumin 2.3 L Globulin 5.2 H Albumin/Globulin Ratio 0.4 L Beta-Hydroxybutyric Acd 7.34 H TSH 2.260 Urine Color Urine Appearance Urine pH Ur Specific [place] Urine Protein Urine Glucose (UA) Urine Ketones Urine Blood Urine Nitrite Urine Bilirubin Urine Urobilinogen Ur Leukocyte Esterase Urine RBC Urine WBC Ur Epithelial Cells Urine Bacteria Urine Yeast COVID-19 Eval Order Hepatitis C Ab Screen Influ A Molecular Assay Influ B Molecular Assay SARS-CoV-2, RNA, NAAT Blood Type Antibody Screen 02/19/20 02/19/20 02/19/20 20:24 20:24 22:07 WBC 9.23 RBC 3.79 L Hgb 11.2 L Hct 33.4 L MCV 88.1 MCH 29.6 MCHC 33.5 RDW Std Deviation 44.5 RDW Coeff of Sylvia 13.7 Plt Count 307 MPV 10.5 H Immature Gran % (Auto) 0.9 Neut % (Auto) 78.1 Lymph % (Auto) 16.7 [place] % (Auto) 4.3 Eos % (Auto) 0.0 Baso % (Auto) 0.0 Neut # (Auto) 7.21 H Lymph # (Auto) 1.54 [place] # (Auto) 0.40 Eos # (Auto) 0.00 Baso # (Auto) 0.00 Immature Gran # (Auto) 0.08 H PT INR D-Dimer Sodium Potassium Chloride Carbon Dioxide Anion Gap BUN Creatinine Est Cr Clr Drug Dosing Est GFR ( Amer) Est GFR (Non-Af Amer) BUN/Creatinine Ratio Glucose POC Glucose 462 H* Estimat Average Glucose Hemoglobin A1c Calcium Magnesium Total Bilirubin AST ALT Alkaline Phosphatase Troponin I Total Protein Albumin Globulin Albumin/Globulin Ratio Beta-Hydroxybutyric Acd TSH Urine Color Urine Appearance Urine pH Ur Specific [place] Urine Protein Urine Glucose (UA) Urine Ketones Urine Blood Urine Nitrite Urine Bilirubin Urine Urobilinogen Ur Leukocyte Esterase Urine RBC Urine WBC Ur Epithelial Cells Urine Bacteria Urine Yeast COVID-19 Eval Order Hepatitis C Ab Screen Neg Influ A Molecular Assay Influ B Molecular Assay SARS-CoV-2, RNA, NAAT Blood Type Antibody Screen 02/19/20 02/19/20 02/19/20 23:54 23:55 23:58 WBC RBC Hgb Hct MCV MCH MCHC RDW Std Deviation RDW Coeff of Sylvia Plt Count MPV Immature Gran % (Auto) Neut % (Auto) Lymph % (Auto) [place] % (Auto) Eos % (Auto) Baso % (Auto) Neut # (Auto) Lymph # (Auto) [place] # (Auto) Eos # (Auto) Baso # (Auto) Immature Gran # (Auto) PT INR D-Dimer Sodium Potassium Chloride Carbon Dioxide Anion Gap BUN Creatinine Est Cr Clr Drug Dosing Est GFR ( Amer) Est GFR (Non-Af Amer) BUN/Creatinine Ratio Glucose POC Glucose 471 H* 492 H* 439 H* Estimat Average Glucose Hemoglobin A1c Calcium Magnesium Total Bilirubin AST ALT Alkaline Phosphatase Troponin I Total Protein Albumin Globulin Albumin/Globulin Ratio Beta-Hydroxybutyric Acd TSH Urine Color Urine Appearance Urine pH Ur Specific [place] Urine Protein Urine Glucose (UA) Urine Ketones Urine Blood Urine Nitrite Urine Bilirubin Urine Urobilinogen Ur Leukocyte Esterase Urine RBC Urine WBC Ur Epithelial Cells Urine Bacteria Urine Yeast COVID-19 Eval Order Hepatitis C Ab Screen Influ A Molecular Assay Influ B Molecular Assay SARS-CoV-2, RNA, NAAT Blood Type Antibody Screen 02/20/20 02/20/20 02/20/20 00:37 00:37 04:02 WBC RBC Hgb Hct MCV MCH MCHC RDW Std Deviation RDW Coeff of Sylvia Plt Count MPV Immature Gran % (Auto) Neut % (Auto) Lymph % (Auto) [place] % (Auto) Eos % (Auto) Baso % (Auto) Neut # (Auto) Lymph # (Auto) [place] # (Auto) Eos # (Auto) Baso # (Auto) Immature Gran # (Auto) PT INR D-Dimer Sodium Potassium Chloride Carbon Dioxide Anion Gap BUN Creatinine Est Cr Clr Drug Dosing Est GFR ( Amer) Est GFR (Non-Af Amer) BUN/Creatinine Ratio Glucose POC Glucose 526 H* Estimat Average Glucose 344 Hemoglobin A1c 13.6 H Calcium Magnesium Total Bilirubin AST ALT Alkaline Phosphatase Troponin I Total Protein Albumin Globulin Albumin/Globulin Ratio Beta-Hydroxybutyric Acd TSH Urine Color Urine Appearance Urine pH Ur Specific [place] Urine Protein Urine Glucose (UA) Urine Ketones Urine Blood Urine Nitrite Urine Bilirubin Urine Urobilinogen Ur Leukocyte Esterase Urine RBC Urine WBC Ur Epithelial Cells Urine Bacteria Urine Yeast COVID-19 Eval Order Hepatitis C Ab Screen Influ A Molecular Assay Influ B Molecular Assay SARS-CoV-2, RNA, NAAT Blood Type A Positive Antibody Screen NEGATIVE 02/20/20 02/20/20 02/20/20 04:04 06:10 07:51 WBC RBC Hgb Hct MCV MCH MCHC RDW Std Deviation RDW Coeff of Sylvia Plt Count MPV Immature Gran % (Auto) Neut % (Auto) Lymph % (Auto) [place] % (Auto) Eos % (Auto) Baso % (Auto) Neut # (Auto) Lymph # (Auto) [place] # (Auto) Eos # (Auto) Baso # (Auto) Immature Gran # (Auto) PT INR D-Dimer Sodium Potassium Chloride Carbon Dioxide Anion Gap BUN Creatinine Est Cr Clr Drug Dosing Est GFR ( Amer) Est GFR (Non-Af Amer) BUN/Creatinine Ratio Glucose POC Glucose 529 H* 493 H* Estimat Average Glucose Hemoglobin A1c Calcium Magnesium Total Bilirubin AST ALT Alkaline Phosphatase Troponin I Total Protein Albumin Globulin Albumin/Globulin Ratio Beta-Hydroxybutyric Acd TSH Urine Color Yellow Urine Appearance Clear Urine pH 6.0 Ur Specific [place] 1.026 Urine Protein 2+ H Urine Glucose (UA) 3+ H Urine Ketones 1+ H Urine Blood Negative Urine Nitrite Negative Urine Bilirubin Negative Urine Urobilinogen Negative Ur Leukocyte Esterase Negative Urine RBC 0-4 Urine WBC 5-10 H Ur Epithelial Cells 20-30 H Urine Bacteria 1+ H Urine Yeast Budding A COVID-19 Eval Order Hepatitis C Ab Screen Influ A Molecular Assay Influ B Molecular Assay SARS-CoV-2, RNA, NAAT Blood Type Antibody Screen 02/20/20 02/20/20 02/20/20 09:45 12:04 13:37 WBC RBC Hgb Hct MCV MCH MCHC RDW Std Deviation RDW Coeff of Sylvia Plt Count MPV Immature Gran % (Auto) Neut % (Auto) Lymph % (Auto) [place] % (Auto) Eos % (Auto) Baso % (Auto) Neut # (Auto) Lymph # (Auto) [place] # (Auto) Eos # (Auto) Baso # (Auto) Immature Gran # (Auto) PT INR D-Dimer Sodium 122 L Potassium 4.1 Chloride 92 L Carbon Dioxide 22 Anion Gap 8.0 BUN 20 H D Creatinine 1.57 H Est Cr Clr Drug Dosing 46.4 Est GFR ( Amer) 41.4 Est GFR (Non-Af Amer) 35.7 BUN/Creatinine Ratio 12.9 Glucose 478 H* POC Glucose 549 H* 472 H* Estimat Average Glucose Hemoglobin A1c Calcium 8.8 Magnesium Total Bilirubin AST ALT Alkaline Phosphatase Troponin I Total Protein Albumin Globulin Albumin/Globulin Ratio Beta-Hydroxybutyric Acd 3.40 H TSH Urine Color Urine Appearance Urine pH Ur Specific [place] Urine Protein Urine Glucose (UA) Urine Ketones Urine Blood Urine Nitrite Urine Bilirubin Urine Urobilinogen Ur Leukocyte Esterase Urine RBC Urine WBC Ur Epithelial Cells Urine Bacteria Urine Yeast COVID-19 Eval Order Hepatitis C Ab Screen Influ A Molecular Assay Influ B Molecular Assay SARS-CoV-2, RNA, NAAT Blood Type Antibody Screen 02/20/20 02/20/20 13:49 16:06 WBC RBC Hgb Hct MCV MCH MCHC RDW Std Deviation RDW Coeff of Sylvia Plt Count MPV Immature Gran % (Auto) Neut % (Auto) Lymph % (Auto) [place] % (Auto) Eos % (Auto) Baso % (Auto) Neut # (Auto) Lymph # (Auto) [place] # (Auto) Eos # (Auto) Baso # (Auto) Immature Gran # (Auto) PT INR D-Dimer Sodium Potassium Chloride Carbon Dioxide Anion Gap BUN Creatinine Est Cr Clr Drug Dosing Est GFR ( Amer) Est GFR (Non-Af Amer) BUN/Creatinine Ratio Glucose POC Glucose 494 H* 315 H* Estimat Average Glucose Hemoglobin A1c Calcium Magnesium Total Bilirubin AST ALT Alkaline Phosphatase Troponin I Total Protein Albumin Globulin Albumin/Globulin Ratio Beta-Hydroxybutyric Acd TSH Urine Color Urine Appearance Urine pH Ur Specific [place] Urine Protein Urine Glucose (UA) Urine Ketones Urine Blood Urine Nitrite Urine Bilirubin Urine Urobilinogen Ur Leukocyte Esterase Urine RBC Urine WBC Ur Epithelial Cells Urine Bacteria Urine Yeast COVID-19 Eval Order Hepatitis C Ab Screen Influ A Molecular Assay Influ B Molecular Assay SARS-CoV-2, RNA, NAAT Blood Type Antibody Screen Medications Administered Current Inpatient Medications Acetaminophen (Acetaminophen 325 Mg Tab) 650 mg PO Q4H PRN PRN Reason: Pain or Fever Stop: 03/21/20 00:09 Amitriptyline HCl (Amitriptyline Hcl 100 Mg Tab) 100 mg PO HS [facility] Stop: 03/21/20 20:59 Atorvastatin Calcium (Atorvastatin 40 Mg Tab) 80 mg PO QPM [facility] Stop: 03/21/20 20:59 Dextrose (Dextrose 50% 50 Ml Syringe) 25 - 50 ml IV UD PRN; Protocol PRN Reason: Hypoglycemia Protocol Stop: 03/21/20 00:09 Enoxaparin Sodium (Enoxaparin Inj 60 Mg/0.6 Ml Syr) 60 mg SQ Q12 [facility] Stop: 03/21/20 06:29 Last Admin: 02/20/20 08:43 Dose: 60 mg Documented by: Famotidine (Famotidine 20 Mg Tab) 20 mg PO BID [facility] Stop: 03/21/20 00:09 Last Admin: 02/20/20 08:47 Dose: 20 mg Documented by: Fluticasone Propionate (Fluticasone Propionate Na Spr 16 Gm Btl) 1 sprays ROSA QAM [facility] Stop: 03/21/20 08:59 Last Admin: 02/20/20 08:46 Dose: 1 sprays Documented by: Glucagon (Glucagon For Inj 1 Mg Vial) 1 mg SQ UD PRN; Protocol PRN Reason: Hypoglycemia Protocol Stop: 03/21/20 00:09 Glucose (Glucose 10 Tabs/Tube) 4 - 8 tabs PO UD PRN; Protocol PRN Reason: Hypoglycemia Protocol Stop: 03/21/20 00:09 Glucose (Glucose 40% Gel 15 Gm Tube) 15 - 30 gm PO UD PRN; Protocol PRN Reason: Hypoglycemia Protocol Stop: 03/21/20 00:09 Sodium Chloride (Nss 1000ml) 1,000 mls @ 80 mls/hr IV .[id number] [facility] Stop: 03/21/20 11:59 Last Admin: 02/20/20 14:01 Dose: 80 mls/hr Documented by: Insulin Aspart (Insulin Aspart 100 Units/Ml 3 Ml Pen) 0 units SC Q2H [facility] Stop: 03/21/20 09:59 Last Admin: 02/20/20 14:03 Dose: 18 units Documented by: Insulin Glargine (Insulin Glargine 100 Unit/Ml Vial) 60 units SC BID [facility] Stop: 03/21/20 08:59 Last Admin: 02/20/20 10:22 Dose: 60 units Documented by: Levothyroxine Sodium (Levothyroxine Sodium 175 Mcg Tablet) 175 mcg PO DAILYBB [facility] Stop: 03/21/20 06:29 Last Admin: 02/20/20 05:45 Dose: 175 mcg Documented by: Lisinopril (Lisinopril 40 Mg Tab) 40 mg PO DAILY [facility] Stop: 03/21/20 08:59 Last Admin: 02/20/20 08:47 Dose: 40 mg Documented by: Magnesium Oxide (Magnesium Oxide 400 Mg Tab) 400 mg PO BID [facility] Stop: 03/21/20 11:44 Last Admin: 02/20/20 14:00 Dose: 400 mg Documented by: Miscellaneous (Carbohydrates For Hypoglycemia ) 15 - 30 gm PO UD PRN PRN Reason: Hypoglycemia Protocol Stop: 03/21/20 00:09 Miscellaneous Information (Pharmacy Glycemic Mgmt Consult) 1 ea N/A UD PRN PRN Reason: Consult Stop: 03/21/20 08:23 Pantoprazole Sodium (Pantoprazole 40 Mg Tab) 40 mg PO QPM [facility] Stop: 03/21/20 20:59 Polyethylene Glycol (Polyethylene (Miralax) 17 Gm Pack) 17 gm PO DAILY PRN PRN Reason: Constipation Stop: 03/21/20 00:09 Sodium Chloride (Sodium Chloride 0.9% 10ml Flush) 30 ml IV Q24H [facility] Stop: 02/24/20 01:01 Last Admin: 02/20/20 01:42 Dose: 30 ml Documented by: PG Care Time/CCT Total # of Minutes Spent Total Time Spent with Patient: Total time spent is greater than 50% in coordination of care (as documented) at patient's floor/unit and/or counseling patient: Coding Level of Care Code 54343 Subseq Hosp Care Lvl 2 Diagnoses Pneumonia due to COVID-19 virus U07.1; J12.89 Hypoxia R09.02 Generalized weakness R53.1 Hyperglycemia due to type 2 diabetes mellitus E11.65 Hypertension I10 Hypertension type: essential hypertension Hypercholesteremia E78.00 Anxiety F41.9 Hypothyroidism E03.9 (1) Hypertension Hypertension type: essential hypertension Qualified Code(s): I10 - Essential (primary) hypertension
[2020-02-20] MEDS ORDERED: REMDESIVIR 100 MG in SODIUM CHLORIDE 0.9% 230 ML IV SCH (20:00)
[2020-02-20] MEDS ORDERED: ATORVASTATIN 40 MG TAB PO SCH (21:00)
[2020-02-20] MEDS ORDERED: PANTOprazole 40 MG TAB PO SCH (21:00)
[2020-02-20] MEDS ORDERED: AMITRIPTYLINE HCL 100 MG TAB PO SCH (21:00)
[2020-02-21] MEDS: INSULIN ASPART 100 UNITS/ML 3 ML PEN SC SCH ×4 (00:05→12:44)
[2020-02-21] MEDS: SODIUM CHLORIDE 0.9% 1000ML 1,000 ML IV SCH ×2 (02:00→14:10)
[2020-02-21] MEDS: SODIUM CHLORIDE 0.9% 10ML FLUSH IV SCH (02:02)
[2020-02-21] MEDS: LEVOTHYROXINE SODIUM 175 MCG TABLET PO SCH (05:42)
[2020-02-21] MEDS ORDERED: INSULIN GLARGINE SOLOSTAR 100 UNITS/ML 3 ML PEN SQ ONE (09:00)
[2020-02-21] MEDS: FLUTICASONE PROPIONATE NA SPR 16 GM BTL NAE SCH (09:43)
[2020-02-21] MEDS: ENOXAPARIN INJ 60 MG/0.6 ML SYR SQ SCH (09:43)
[2020-02-21] MEDS: FAMOTIDINE 20 MG TAB PO SCH (09:44)
[2020-02-21] MEDS: MAGNESIUM OXIDE 400 MG TAB PO SCH (09:44)
[2020-02-21] MEDS: lisinopril 40 MG TAB PO SCH (09:45)
[2020-02-21 11:24] LABS: Hematocrit (blood only) 35.7 % (37-47); Hemoglobin 12.3 g/dL (12.0-16.0); Mean Corpuscular Hemoglobin 30.1 pg (25-34); Mean Corpuscular Hgb Conc 34.5 g/dL (32-36); Mean Corpuscular Volume 87.5 fL (80-100); Mean Platelet Volume 10.3 fL (7.4-10.4); Platelet Count 384 K/uL (130-400); RDW Coefficient of Variation 13.8 % (11.5-14.5); RDW Standard Deviation 44.3 fL (36.4-46.3); Red Blood Count 4.08 M/uL (4.2-5.4); White Blood Count 11.37 K/uL (4.8-10.8)
[2020-02-21 12:02] LABS: BUN Creatinine Ratio 19.2 (10-20); Calcium 9.2 mg/dl (8.5-10.1); Creatinine Clr Calc Pharmacy 61.8 ml/min; Est GFR (African American) 66.6; Est GFR (Non-African American) 57.4
[2020-02-21 14:15] LABS: Potassium 3.7 mmol/L (3.5-5.1)
--- NOTE | 2020-02-21 14:31 | Pharmacy Report ---
Pharmacy Glycemic Short Note 2 - Date of Service February 21, 2020 - Glycemic Short BSG Results (Last 24 hours): 02/20/20 02/20/20 02/20/20 13:37 16:06 17:10 Glucose 478 H* POC Glucose 315 H* 276 H 02/20/20 02/20/20 02/21/20 20:30 23:56 04:11 Glucose POC Glucose 212 H 167 H 113 H 02/21/20 02/21/20 02/21/20 07:45 11:01 11:31 Glucose 211 H POC Glucose 122 H 187 H OUTPATIENT ANTIDIABETIC REGIMEN: * Lantus 60 units SQ BID * Humalog 10 units SQ before meals * Metformin 1000 mg PO BID ASSESSMENT: * Patient received total of 191 units of insulin yesterday; 90 units basal and the rest bolus. * Fasting BSG this AM was 122 mg/dl. Lantus order split into BID dosing for ease of titration, and 50 units ordered for this AM. * HS Lantus ordered based on BSGs. * Patient's BSGs trended down really well yesterday on q2h Novolog insulin regimen. Yesterday evening Novolog regimen was switched to ACHS with parameters based on wt and stress between 2 and 3. * Pre-lunch BSG was 187 mg/dl, continued same parameters for Novolog. PLAN FOR INPATIENT GLYCEMIC CONTROL: * Hold outpatient oral diabetes medications * Basal insulin * Lantus 50 units SQ x1 this AM * Lantus 0-20 units scale ordered based on BSG at HS * Bolus insulin * NovoLog per scale ACHS or Q6hrs while NPO * Goal Range: Low 120 mg/dL - High 150 mg/dL * Correction Factor: 20 mg/dL/unit * Nutritional / Prandial insulin per carb ratio of 1 unit per 5 grams CHO consumed PLAN FOR DISCHARGE: * TBD
[2020-02-21] MEDS ORDERED: INSULIN GLARGINE SOLOSTAR 100 UNITS/ML 3 ML PEN SC SCH (21:00)
[2020-02-22] MEDS ORDERED: INSULIN ASPART 100 UNITS/ML 3 ML PEN SC SCH
--- NOTE | 2020-02-23 19:32 | Discharge Summary ---
Date of Service February 21, 2020 Admission HPI Per Admitting Provider The patient is a 59-year-old female with a past medical history including hypertension, hypercholesterolemia, uncontrolled diabetes mellitus, anxiety, heart block, migraine, hypothyroidism, diverticular disease, fibromyalgia, urinary tract infection and chronic diastolic CHF. The patient is disabled, and has a caregiver. Her primary presenting symptom was that of increasing generalized weakness to the point that when she will try to get up to walk she fell landed on her buttocks without injury. Vital signs of significance: Pulse ox 91% on room air Work-up in the emergency department included the following abnormal laboratories: Hemoglobin 11.2 sodium 123 creatinine 1.29 glucose 557 magnesium 1.5 albumin 2.3. She was COVID-19 positive. Imaging studies: Chest x-ray showed patchy bilateral alveolar opacities suggestive of multifocal pneumonia Principal Diagnosis COVID 19 infection Discharge Exam Constitutional WD/WN, vitals as above + obese; no acute distress Neck trachea midline, no thyromegaly Respiratory normal respiratory effort, lungs clear to auscultation Cardiovascular RRR, no murmur, no edema Gastrointestinal (Abdomen) normal bowel sounds, soft, nontender, no hepatosplenomegaly Musculoskeletal no cyanosis or clubbing, extremities motor strength 5/5 Skin no rashes, warm and dry Neurologic patellar DTR's 2+ bilat, sensation intact and PERRL, EOMI, accommodation nl, no face palsy, no dysarthria Psychiatric A+Ox3, euthymic affect Lymphatic no cervical or axillary lymphadenopathy Discharge Data Allergies Allergy/AdvReac Type Severity Reaction Status Date / Time amoxicillin Allergy Unknown hives Verified 02/19/20 20:47 dextromethorphan Allergy Unknown Hives Verified 02/19/20 20:47 [From NyQuil] doxylamine [From NyQuil] Allergy Unknown Hives Verified 02/19/20 20:47 latex Allergy Unknown RASH Verified 02/19/20 20:47 Sulfa (Sulfonamide Allergy Unknown RASH Verified 02/19/20 20:47 Antibiotics) wheat Allergy Unknown Hives AND Verified 02/19/20 20:47 ITCHING clarithromycin AdvReac Unknown HEART RACES Verified 02/19/20 20:47 Consultations 02/19/20 20:56 ED Decision to Admit Stat 02/20/20 00:10 Consult Case Management - Discharge Planning Routine Hospital Course (1) Pneumonia due to COVID-19 virus: Pneumonia due to COVID-19 virus -- no further hypoxemia, saturations >95% on room air entire stay Convalescent plasma, cancel transfusion stop Remdesivir no need for Decadron Ceftriaxone 2 g IV daily, stop this as well Ventolin HFA 2 puffs 4 times daily, and every 2 hours as needed breathing well on room air, no increased effort, no fever discharge to home and monitor for any worsening symptoms (2) Hypoxia: resolved quickly stop Decadron and Remdesivir (3) Generalized weakness: Her primary symptoms of generalized weakness, and ambulatory dysfunction because of that. Likely a combination of factors: COVID-19 viral pneumonia with hypoxia, in the setting of uncontrolled blood sugars PT/OT consultations, can go home (4) Hyperglycemia due to type 2 diabetes mellitus: Patient admitted that she did not take her Lantus insulin morning of admis jeffery Her hemoglobin A1c was 13.6, suggesting that she frequently misses her long- acting insulin. Her glucose was 557 upon admission, and did receive Decadron 10 mg IV from the ED, sugars mery dramatically into the 600's consulted glycemic management 02/19, sugars slowly improving with regular insulin dosing resume basal / bolus regimen no plan to resume Decadron so sugars should be easier to manage on discharge stressed that she needs to be compliant with home regimen and low carb diet follow up with PCP (5) Hypertension: Continue lisinopril 40 mg daily BP stable (6) Hypercholesteremia: Continue atorvastatin 80 mg daily (7) Anxiety: Continue amitriptyline 100 mg at bedtime (8) Hypothyroidism: Continue levothyroxine 105 mcg daily (9) Hyponatremia: 122 on admission likely pseudohyponatremia with blood sugar > 600 Na up to 133 on discharge Total Time Total Time Spent Total Time Spent (In Minutes): 31 minutes Total Time Includes: Examination of the Patient, Discharge Planning and Medication Reconciliation Discharge Plan Discharge Items Patient Disposition: Home - Self-Care Reason For Visit: COUGH, ILLNESS, FALL Discharge Diagnosis: COVID 19 Weakness/fall Condition on Discharge: Good Goals: stay well nourished and well hydrated get rest, gradually increase activity Activity: Resume your previous activity Weightbearing: Full weightbearing Non-emergency contact: Primary Care Provider Call non-emergency contact if: you have any medication questions, your symptoms worsen and you have a fever Follow-up/Referrals: Natali Langston DO [Primary Care Provider] - 02/25/20 10:20 am Diet: Carb Consistent or DM2 Addtl Attending Provider Instructions: Medications: no changes COVID 19 infection: no hypoxia, no fever, no need for treatment at this time Hyperglycemia: due to Decadron you received in the ED, now resolved after aggressive insulin administration follow low carb diet stay well nourished, well hydrated monitor for any worsening symptoms such as shortness of breath, fever/chills Pending Studies at Discharge: No Stand-Alone Forms: My [facility] [place], Smoking Cessation Medications and DC Order Prescriptions: Continued levothyroxine [Synthroid] 175 mcg Tablet 175 mcg PO QAM RF: 0 fluticasone propionate 50 mcg/actuation [place],Suspension 1 spray INTRANASAL QAM RF: 0 atorvastatin 80 mg tablet 80 mg PO QPM RF: 0 lisinopril 40 mg tablet 40 mg PO DAILY RF: 0 insulin lispro 100 unit/mL insulin pen 30 unit SUBCUT AC RF: 0 Lantus Solostar U-100 Insulin 100 unit/mL (3 mL) insulin pen 60 unit SUBCUT BID RF: 0 famotidine [Pepcid] 20 mg tablet 20 mg PO BID RF: 0 amitriptyline 50 mg Tablet 100 mg PO HS RF: 0 metformin 1,000 mg Tablet 1,000 mg PO BID RF: 0 omeprazole 20 mg Tablet,Delayed Release (Dr/Ec) 20 mg PO QPM RF: 0 albuterol sulfate 90 mcg/actuation Hfa Aerosol Inhaler 1 - 2 puff INHALATION UD PRN (Reason: ASTHMA) RF: 0 Discharge Orders: Discharge Order (Routine); Ordered 02/21/20 Ordered By: Juan Ramon Flores Admission Data Admit Date/Time: 02/19/20 21:51 Attending Provider: Juan Ramon Flores Admit Provider: Quincy Pond Primary Care Provider: Natali Langston Other Providers: Quincy Pond Other Interventions: Discharge Summary Assessment (RN) Last Done: 02/21/20 14:41 Coding Level of Care Code D/C Day Management >30 mins Diagnoses Pneumonia due to COVID-19 virus U07.1; J12.89 Hypoxia R09.02 Generalized weakness R53.1 Hyperglycemia due to type 2 diabetes mellitus E11.65 Hypertension I10 Hypertension type: essential hypertension Hypercholesteremia E78.00 Anxiety F41.9 Hypothyroidism E03.9 Hyponatremia E87.1
== END 2020-02-21 15:26 | disposition home or self-care (01) | DRG 177 ==
LOC: ED 18:45 → SUATTDRO 21:51 → EDINP 21:51 → 2S 21:55

== ENCOUNTER 2022-01-28 22:14 | Observation (INO) ==
--- NOTE | 2022-01-28 22:28 | Emergency Department Note ---
Impression & Plan Peritonsillar abscess, Acute hyperglycemia, Failure of outpatient treatment ED Provider Note Name: JASPER AIKEN Age: 61 Sex: F Arrives Via: Ambulance Informant: Patient, ED Provider: Eric Matthews MD Chief Complaint: Difficulty breathing Impression: As per impressions above Medical Decision Making: Pleasant 61-year-old female with extensive past medical history including uncontrolled type 2 diabetes and CKD arrives for evaluation of worsening left- sided neck pain and feeling like she is having trouble breathing. She is under the impression that this was a allergic reaction to her clindamycin but due to her description it is much more clearly coming from her throat. On examination I cannot see the posterior pharynx due to the size of her tongue. In the setting of her difficulty breathing and the symptoms I felt that CT would be indicated. While waiting CT she was given IV steroids as well as IV antibiotics with the presumption that there is underlying infection with some swelling. She does not have wheezing or significant stridor at this time. She is comfortable no distress and tolerating secretions. Labs returned with mildly elevated white blood cell count, elevated CRP/ESR consistent with infection. Her blood sugars are somewhat elevated but actually coming down while here. With the CT showing small abscess I do not feel that it is drainable at this point though. She is not having any difficulty breathing or swallowing. With her history I am a bit concerned that her blood sugars running out of control and it may be beneficial to keep her in the hospital for IV antibiotic management given failure of outpatient over the last few days as well as monitoring her blood sugars closely. I did discuss this with the on-call hospitalist with the understanding that we do not have ENT. After discussing this further with the patient who knows that if she worsens she would need to be transferred and it could be much more emergent situation and more critical she would prefer to stay here if possible rather than being transferred at this time. I have this is reasonable as she is not in any way in distress right now. Patient does have a mildly elevated troponin. She has a history of CKD is having no actual chest pain. Her EKG showed essentially similar to previous EKG do not feel that this is ACS at this time. Patient is not septic she is not febrile I do not feel that she is in severe sepsis at this time thus blood cultures and lactate were not obtained. Prior Medical Record and Triage/Nursing Notes reviewed by Me Additional history obtained from chart Differentials:Viral syndrome, tonsillitis, streptococcal pharyngitis, mononucleosis, peritonsillar abscess, retropharyngeal abscess, otitis, pneumonia, influenza, as well as other pathologies. Vital Signs: reviewed and remarkable for no significant abnormalities Interventions: Decadron 10 mg IV, Rocephin 2 g IV Labs:Reviewed and remarkable for elevated CRP/ESR and mildly elevated white blood cell count, mildly elevated Trop Imaging:CT imaging of the neck with IV contrast as per radiologist 1.5 x 1 cm left tonsillar abscess EKG:As per my interpretation. Indication shortness of breath. Normal sinus rhythm at 85 bpm with a bifascicular block. QTC of 480. There is no ectopy nor ischemia appreciated. When compared to EKG from March 10, 2020 there is no acute change. Consults:Dr. Dong KIM Hospitalist Plan: Disposition:Hospitalization. Condition: Good History of Present Illness:61-year-old female arrives for evaluation of difficulty breathing. Patient notes she developed left lower jaw swelling a few days ago. It was in front of her left ear as well. Over the last 2 days the swelling is gone down into her left neck in to the front. Patient notes she was started on clindamycin via telehealth a few days ago and notes that the swelling has not gotten better and she is becoming increasingly short of breath. She feels like she is having trouble taking a deep breath sometimes getting it out. She felt like she was wheezing earlier and took some albuterol with mild i mprovement. Denies any fevers, chills, chest pain, syncope, back pain, abdominal pain, urinary/bowel symptoms, leg swelling, calf pain, rashes, bleeding/bruising or any other concerning signs or symptoms. She has had no recent headache. She assumed this all initially started due to poor dentition but she is not convinced. No medications prior to arrival. Swallowing makes worse rest makes better. ROS: See above HPI for pertinent positives & negatives. A total of 10 systems reviewed and were otherwise negative. Past Medical History:See Below Past Surgical History:See Below Family History:See Below Social History:See Below Home Medications:See Below Allergies:See Below Vitals:Blood Pressure: 117/95, Pulse 87, RR 20, T 36.9C, O2 97% on RA Physical Exam: GENERAL: Patient is well appearing and in mild distress mildly anxious appearing EYES: No scleral icterus, unremarkable pupils. ENT: Mucous membranes moist, no nasal congestion. Unable to assess posterior pharynx due to size of tongue/tissue. No stridor NECK: Mild TTP left lower jawline no fluctuance. nomeningismus, trachea is midline. RESPIRATORY: No dyspnea. Clear to auscultation and equal bilaterally. No wheeze, no rhonchi. CARDIOVASCULAR: Regular rate and rhythm.No murmurs, rubs, gallops appreciated. GASTROINTESTINAL: Abdomen soft, non-tender, no peritonitis.Bowel sounds positive.No masses appreciated. BACK: No midline tenderness, no CVA tenderness EXTREMITIES: Normal motion all extremities, no cyanosis, no edema. NEUROLOGIC: Alert and oriented, no acute motor or sensory deficits, no focal weakness, cranial nerves grossly intact. SKIN: No rash, no jaundice, no diaphoresis. PSYCH: Appropriate GCS: 15 ED Course: Times/Reassessments: well throughout, breathing comfortably, on board with staying here for now. Eric Matthews MD Past Med/Surg History Medical History (Updated 01/29/22 @ 23:18 by Eric Matthews MD) Anxiety Asthma COLD WEATHER FLARES UP/DENIES RECENT FLARE UP/ALBUTEROL ONLY PRN Bifascicular block Cataract Bilateral Chronic back pain COVID-19 Depression Diabetes mellitus with hyperglycemia, with long-term current use of insulin Fibromyalgia Foot drop LEFT GERD (gastroesophageal reflux disease) Hiatal hernia History of diverticulitis History of migraine History of torn meniscus of right knee Hx of irritable bowel syndrome Hyperglycemia Hyperlipidemia Hyperosmolar hyponatremia Hypertension Hypothyroidism Neck pain Narrowing of C6-C7 with bone spurs. CAUSES NUMBNESS IN LEFT ARM Osteoarthritis Pneumonia PTSD (post-traumatic stress disorder) RBBB SOB (shortness of breath) Tear of medial meniscus of right knee, current Umbilical hernia Uncontrolled type 2 DM with hyperosmolar nonketotic hyperglycemia Urinary tract infection HOSPITALIZED 10/2017 [facility] FOR "BACTERIAL UTI" Surgical History History of arthroscopic knee surgery "x 2 with ACL repair" History of arthroscopy of right shoulder History of arthroscopy of right shoulder History of colonoscopy History of D&C History of dilatation and curettage History of esophagogastroduodenoscopy (EGD) History of repair of ACL R History of repair of ACL L History of repair of left rotator cuff History of repair of right rotator cuff S/P rotator cuff repair Family History Grandfather Diabetes Mother Myocardial infarction Heart disease Tobacco abuse Hx of CABG Family/Other Family history of diabetes mellitus Brother Family history of diabetes mellitus Father Aortic aneurysm Grandmother (Paternal) Cerebral aneurysm Stroke Other Family history of colon cancer in mother Social History Smoking Status: Never smoker Second Hand Exposure: No; Hx Alcohol Use: No Hx Substance Use: No Preferred Language: Urdu Communication Ability: Effective Milled [employer] Required: No Beliefs That Will Affect Care: None Current Living Situation: Alone Feels Safe at Home: Yes Assistive Devices: Walker Allergies Allergies Allergy/AdvReac Type Severity Reaction Status Date / Time amoxicillin Allergy Intermediate hives Verified 01/28/22 22:51 dextromethorphan Allergy Intermediate Hives Verified 01/28/22 22:51 [From NyQuil] doxylamine [From NyQuil] Allergy Intermediate Hives Verified 01/28/22 22:51 latex Allergy Intermediate RASH Verified 01/28/22 22:51 Sulfa (Sulfonamide Allergy Intermediate RASH Verified 01/28/22 22:51 Antibiotics) clarithromycin AdvReac Intermediate HEART RACES Verified 01/28/22 22:51 Arnold's multigrain bread AdvReac Hives Uncoded 01/29/22 11:20 Home Meds Home Medications Medication Instructions Recorded Confirmed amitriptyline 50 mg tablet 100 mg PO HS 12/06/17 01/28/22 metformin 1,000 mg tablet 1,000 mg PO BID 12/06/17 01/28/22 omeprazole 20 mg tablet,delayed 20 mg PO QPM 12/06/17 01/28/22 release fluticasone propionate 50 1 spray intranasal QAM 03/10/19 01/28/22 mcg/actuation nasal spray,suspension levothyroxine 175 mcg tablet 175 mcg PO QAM 03/10/19 01/28/22 (Synthroid) atorvastatin 80 mg tablet 80 mg PO HS 02/19/20 01/28/22 famotidine 20 mg tablet (Pepcid) 20 mg PO BID 02/19/20 01/28/22 lisinopril 40 mg tablet 40 mg PO DAILY 02/19/20 01/28/22 cyclobenzaprine 10 mg tablet 10 mg PO BID PRN MUSCLE SPASMS 01/19/21 01/28/22 loratadine 10 mg tablet 10 mg PO DAILY PRN Allergy Symptoms 01/19/21 01/28/22 albuterol sulfate 90 mcg/actuation 1 - 2 puff inhalation QID PRN 06/20/21 01/28/22 aerosol inhaler ASTHMA pen needle, diabetic 32 gauge x 06/20/21 01/05/22 532" (BD Ultra-Fine Siria Pen Needle) blood sugar diagnostic (FreeStyle 06/29/21 01/05/22 Precision Perico Strips) flash glucose scanning reader 06/29/21 01/05/22 (FreeStyle Davy 14 Day [place]) flash glucose sensor (FreeStyle 06/29/21 01/05/22 Davy 14 Day Sensor kit) lancets 30 gauge (OneTouch Delica 06/29/21 01/05/22 Lancets) dulaglutide 1.5 mg/0.5 mL 1.5 mg subcut WK 01/28/22 01/28/22 subcutaneous pen injector insulin detemir U-100 100 unit/mL See Rx Instructions .Route .COMPLEX 01/28/22 01/28/22 (3 mL) subcutaneous pen (Levemir FlexTouch U-100 Insulin) Previous Rx's Medication Instructions Recorded cholecalciferol (vitamin D3) 50 50 mcg PO DAILY #90 caps 06/06/21 mcg (2,000 unit) capsule dapagliflozin 5 mg tablet (Farxiga) 5 mg PO DAILY #30 tabs 01/13/22 insulin lispro 100 unit/mL See Rx Instructions subcut 01/18/22 subcutaneous pen .COMPLEX #105 mL bumetanide 1 mg tablet 1 mg PO DAILY #90 tabs 01/19/22 Results & Data (ED) Vital Signs Vital Signs - 24 hr 01/28/22 23:47 01/28/22 23:31 01/28/22 23:45 Pulse Rate 80 85 Pulse Rate [Apical] 85 Pulse Rate from SpO2 Sensor 83 85 Pulse Rhythm [Apical] Regular Respiratory Rate 16 22 19 Respiratory Effort / Characteristics Non-Labored Spontaneous Respiratory Depth Normal Blood Pressure Blood Pressure [Left Arm] 176/93 H Blood Pressure Mean Blood Pressure Mean [Left Arm] 120 Pulse Oximetry 95 98 98 Oxygen Delivery Method Room Air 01/29/22 00:00 01/29/22 00:30 01/29/22 01:00 Pulse Rate 88 91 H 87 Pulse Rate [Apical] Pulse Rate from SpO2 Sensor 88 85 87 Pulse Rhythm [Apical] Respiratory Rate 20 22 14 Respiratory Effort / Characteristics Respiratory Depth Blood Pressure 176/93 H Blood Pressure [Left Arm] Blood Pressure Mean 120 Blood Pressure Mean [Left Arm] Pulse Oximetry 97 99 97 Oxygen Delivery Method 01/29/22 01:02 01/29/22 01:30 01/29/22 02:00 Pulse Rate 87 87 87 Pulse Rate [Apical] Pulse Rate from SpO2 Sensor 88 87 Pulse Rhythm [Apical] Respiratory Rate 20 20 17 Respiratory Effort / Characteristics Respiratory Depth Blood Pressure 117/95 Blood Pressure [Left Arm] Blood Pressure Mean 102 Blood Pressure Mean [Left Arm] Pulse Oximetry 97 98 Oxygen Delivery Method 01/29/22 02:20 Pulse Rate 91 H Pulse Rate [Apical] Pulse Rate from SpO2 Sensor 91 H Pulse Rhythm [Apical] Respiratory Rate 23 Respiratory Effort / Characteristics Respiratory Depth Blood Pressure 189/79 H Blood Pressure [Left Arm] Blood Pressure Mean 115 Blood Pressure Mean [Left Arm] Pulse Oximetry 98 Oxygen Delivery Method Laboratory Data Result diagrams: 01/29/22 07:43 01/29/22 07:43 Lab Results 01/28/22 01/28/22 01/28/22 Range/Units 22:45 22:45 22:45 WBC (4.8-10.8) K/ul RBC (3.93-5.22) M/uL Hgb (12.0-16.0) g/dl POC Hgb (12.0-16.0) g/dl Hct (34.1-44.9) % POC Hct (37-47) % MCV (80.0-100.0) fL MCH (25.0-34.0) pg MCHC (32.0-36.0) g/dL RDW Std Deviation (36.4-46.3) fL RDW Coeff of Sylvia (11.5-14.5) % Plt Count (130-400) K/uL MPV (9.4-12.3) fL Immature Gran % (Auto) % Neut % (Auto) % Lymph % (Auto) % [place] % (Auto) % Eos % (Auto) % Baso % (Auto) % Neut # (Auto) (1.4-6.5) K/uL Lymph # (Auto) (1.2-3.4) K/uL [place] # (Auto) (0.24-0.82) K/uL Eos # (Auto) (0-0.50) K/uL Baso # (Auto) (0-0.2) K/uL Immature Gran # (Auto) (0.00-0.02) K/uL ESR 97 H (0-30) mm/hr POC Sodium (135-144) mmol/L Sodium 134 L (136-145) mmol/L POC Potassium (3.3-5.0) mmol/L Potassium 4.3 (3.5-5.1) mmol/L POC Chloride (101-112) mmol/L Chloride 99 (98-107) mmol/L Carbon Dioxide 25 (21-32) mmol/L POC Total CO2 (24-31) mmol/L Anion Gap 10 (3-11) POC Anion Gap (16-25) mmol/L POC BUN (7-18) mg/dl BUN 28 H (6-23) mg/dl Creatinine 1.39 H (0.6-1.2) mg/dl POC Creatinine (0.6-1.3) mg/dl Est Cr Clr Drug Dosing 56.1 ml/min Est GFR ( Amer) 47.3 ml/min Est GFR (Non-Af Amer) 40.8 ml/min BUN/Creatinine Ratio 20.1 H (10-20) Glucose 200 H (70-99(Fasting)) mg/dl POC Glucose (other) (70-99) mg/dl Calcium 9.4 (8.5-10.1) mg/dl POC Ioniz Calcium Dennis (1.12-1.32) mmol/l Magnesium 1.6 L (1.7-2.4) mg/dl Troponin I High Sens 20.4 H (0-14) pg/ml C-Reactive Protein 2.85 H (0-0.5) mg/dl B-Natriuretic Peptide 67 (0-100) pg/ml Procalcitonin (0-0.5) ng/ml SARS-CoV-2, RNA, NAAT (NEGATIVE) 01/28/22 01/28/2222 Range/Units 22:45 22:50 23:42 WBC 13.03 H (4.8-10.8) K/ul RBC 3.54 L (3.93-5.22) M/uL Hgb 10.1 L (12.0-16.0) g/dl POC Hgb 11.2 L (12.0-16.0) g/dl Hct 32.0 L (34.1-44.9) % POC Hct 33 L (37-47) % MCV 90.4 (80.0-100.0) fL MCH 28.5 (25.0-34.0) pg MCHC 31.6 L (32.0-36.0) g/dL RDW Std Deviation 47.0 H (36.4-46.3) fL RDW Coeff of Sylvia 14.2 (11.5-14.5) % Plt Count 439 H (130-400) K/uL MPV 10.2 (9.4-12.3) fL Immature Gran % (Auto) 0.5 % Neut % (Auto) 56.3 % Lymph % (Auto) 36.7 % [place] % (Auto) 4.4 % Eos % (Auto) 1.7 % Baso % (Auto) 0.4 % Neut # (Auto) 7.35 H (1.4-6.5) K/uL Lymph # (Auto) 4.78 H (1.2-3.4) K/uL [place] # (Auto) 0.57 (0.24-0.82) K/uL Eos # (Auto) 0.22 (0-0.50) K/uL Baso # (Auto) 0.05 (0-0.2) K/uL Immature Gran # (Auto) 0.06 H (0.00-0.02) K/uL ESR (0-30) mm/hr POC Sodium 136 (135-144) mmol/L Sodium (136-145) mmol/L POC Potassium 4.4 (3.3-5.0) mmol/L Potassium (3.5-5.1) mmol/L POC Chloride 100 L (101-112) mmol/L Chloride (98-107) mmol/L Carbon Dioxide (21-32) mmol/L POC Total CO2 23 L (24-31) mmol/L Anion Gap (3-11) POC Anion Gap 18.0 (16-25) mmol/L POC BUN 28 H (7-18) mg/dl BUN (6-23) mg/dl Creatinine (0.6-1.2) mg/dl POC Creatinine 1.6 H (0.6-1.3) mg/dl Est Cr Clr Drug Dosing ml/min Est GFR ( Amer) ml/min Est GFR (Non-Af Amer) ml/min BUN/Creatinine Ratio (10-20) Glucose (70-99(Fasting)) mg/dl POC Glucose (other) 201 H (70-99) mg/dl Calcium (8.5-10.1) mg/dl POC Ioniz Calcium Dennis 1.21 (1.12-1.32) mmol/l Magnesium (1.7-2.4) mg/dl Troponin I High Sens (0-14) pg/ml C-Reactive Protein (0-0.5) mg/dl B-Natriuretic Peptide (0-100) pg/ml Procalcitonin (0-0.5) ng/ml SARS-CoV-2, RNA, NAAT NEGATIVE (NEGATIVE) 01/29/22 Range/Units 01:59 WBC (4.8-10.8) K/ul RBC (3.93-5.22) M/uL Hgb (12.0-16.0) g/dl POC Hgb (12.0-16.0) g/dl Hct (34.1-44.9) % POC Hct (37-47) % MCV (80.0-100.0) fL MCH (25.0-34.0) pg MCHC (32.0-36.0) g/dL RDW Std Deviation (36.4-46.3) fL RDW Coeff of Sylvia (11.5-14.5) % Plt Count (130-400) K/uL MPV (9.4-12.3) fL Immature Gran % (Auto) % Neut % (Auto) % Lymph % (Auto) % [place] % (Auto) % Eos % (Auto) % Baso % (Auto) % Neut # (Auto) (1.4-6.5) K/uL Lymph # (Auto) (1.2-3.4) K/uL [place] # (Auto) (0.24-0.82) K/uL Eos # (Auto) (0-0.50) K/uL Baso # (Auto) (0-0.2) K/uL Immature Gran # (Auto) (0.00-0.02) K/uL ESR (0-30) mm/hr POC Sodium (135-144) mmol/L Sodium (136-145) mmol/L POC Potassium (3.3-5.0) mmol/L Potassium (3.5-5.1) mmol/L POC Chloride (101-112) mmol/L Chloride (98-107) mmol/L Carbon Dioxide (21-32) mmol/L POC Total CO2 (24-31) mmol/L Anion Gap (3-11) POC Anion Gap (16-25) mmol/L POC BUN (7-18) mg/dl BUN (6-23) mg/dl Creatinine (0.6-1.2) mg/dl POC Creatinine (0.6-1.3) mg/dl Est Cr Clr Drug Dosing ml/min Est GFR ( Amer) ml/min Est GFR (Non-Af Amer) ml/min BUN/Creatinine Ratio (10-20) Glucose (70-99(Fasting)) mg/dl POC Glucose (other) (70-99) mg/dl Calcium (8.5-10.1) mg/dl POC Ioniz Calcium Dennis (1.12-1.32) mmol/l Magnesium (1.7-2.4) mg/dl Troponin I High Sens (0-14) pg/ml C-Reactive Protein (0-0.5) mg/dl B-Natriuretic Peptide (0-100) pg/ml Procalcitonin 0.05 (0-0.5) ng/ml SARS-CoV-2, RNA, NAAT (NEGATIVE) Administered Medications Acetaminophen (Acetaminophen 500 Mg Tab) 1,000 mg PO Q8H PRN PRN Reason: pain/fever Stop: 02/28/22 03:23 Last Admin: 01/29/22 19:47 Dose: 1,000 mg Documented By: TKB Amitriptyline HCl (Amitriptyline Hcl 100 Mg Tab) 100 mg PO HS WESLY Stop: 02/28/22 20:59 Last Admin: 01/29/22 19:39 Dose: 100 mg Documented By: SALO Atorvastatin Calcium (Atorvastatin 40 Mg Tab) 80 mg PO HS WESLY Stop: 02/28/22 20:59 Last Admin: 01/29/22 19:39 Dose: 80 mg Documented By: SALO Bumetanide (Bumetanide 1 Mg Tab) 1 mg PO DAILY WESLY Stop: 02/28/22 08:59 Last Admin: 01/29/22 08:54 Dose: 1 mg Documented By: PEÑA Chlorhexidine Gluconate (Chlorhexidine Gluconate 0.12% 480 Ml) 15 ml MT BID WESLY Stop: 02/28/22 10:29 Last Admin: 01/29/22 19:43 Dose: 15 ml Documented By: Admin: 01/29/22 11:16 Dose: 15 ml Documented By: PEÑA Famotidine (Famotidine 20 Mg Tab) 20 mg PO BID WESLY Stop: 02/28/22 08:59 Last Admin: 01/29/22 19:41 Dose: 20 mg Documented By: Admin: 01/29/22 08:54 Dose: 20 mg Documented By: PEÑA Heparin Sodium (Porcine) (Heparin Sod 5,000 Unit/0.5 Ml Vial) 7,500 units SQ Q8 WESLY Stop: 02/28/22 05:59 Last Admin: 01/29/22 19:42 Dose: 7,500 units Documented By: Admin: 01/29/22 14:48 Dose: 7,500 units Documented By: Admin: 01/29/22 05:10 Dose: 7,500 units Documented By: MERIRTT Clindamycin Phosphate (Cleocin/D5w) 600 mg in 50 mls @ 100 mls/hr IV Q8H WESLY Stop: 02/05/22 11:59 Last Infusion: 01/29/22 20:25 Dose: 0 mls/hr Documented By: Admin: 01/29/22 19:39 Dose: 100 mls/hr Documented By: Infusion: 01/29/22 13:46 Dose: 0 mls/hr Documented By: Admin: 01/29/22 12:48 Dose: 100 mls/hr Documented By: PEÑA Insulin Aspart (Insulin Aspart Per Unit) 0 units SC ACHS WESLY Stop: 02/28/22 03:59 Last Admin: 01/29/22 21:36 Dose: 16 units Documented By: SALO Co-signed By: MERRITT Admin: 01/29/22 17:50 Dose: 31 units Documented By: PEÑA Co-signed By: LEATHA Admin: 01/29/22 12:48 Dose: 32 units Documented By: PEÑA Co-signed By: STEPHEN Admin: 01/29/22 08:54 Dose: 18 units Documented By: PEÑA Co-signed By: STEPHEN Admin: 01/29/22 05:04 Dose: 12 units Documented By: MERRITT Co-signed By: RADHA Insulin Glargine (Lantus Per Unit Charge) 40 units SQ BID WESLY Stop: 02/28/22 20:59 Last Admin: 01/29/22 21:37 Dose: 40 units Documented By: SALO Co-signed By: MERRITT Levothyroxine Sodium (Levothyroxine Sodium 175 Mcg Tablet) 175 mcg PO DAILYBB WESLY Stop: 02/28/22 06:29 Last Admin: 01/29/22 05:31 Dose: 175 mcg Documented By: MERRITT Lisinopril (Lisinopril 40 Mg Tab) 40 mg PO DAILY WESLY Stop: 02/28/22 08:59 Last Admin: 01/29/22 08:54 Dose: 40 mg Documented By: PEÑA Pantoprazole Sodium (Pantoprazole 40 Mg Tab) 40 mg PO QPM WESLY Stop: 02/28/22 20:59 Last Admin: 01/29/22 19:40 Dose: 40 mg Documented By: SALO Discontinued Medications Dexamethasone Sodium Phosphate (DexamethasonePf 10 Mg/Ml Vial) 10 mg IV NOW ONE Stop: 01/28/22 23:26 Last Admin: 01/28/22 23:34 Dose: 10 mg Documented By: DEREK Ceftriaxone Sodium (Rocephin) 2,000 mg in 70 mls @ 140 mls/hr IV NOW STA Stop: 01/28/22 23:54 Last Infusion: 01/29/22 00:13 Dose: 0 mls/hr Documented By: Admin: 01/28/22 23:33 Dose: 140 mls/hr Documented By: DEREK Lactated Ringer's (Lr) 1,000 mls @ 80 mls/hr IV .[id number] STA Stop: 01/29/22 14:55 Last Infusion: 01/29/22 15:46 Dose: 0 mls/hr Documented By: Admin: 01/29/22 02:30 Dose: 80 mls/hr Documented By: DEREK Clindamycin Phosphate (Cleocin/D5w) 600 mg in 50 mls @ 100 mls/hr IV ONE STA Stop: 01/29/22 02:55 Last Infusion: 01/29/22 04:02 Dose: 0 mls/hr Documented By: Admin: 01/29/22 03:30 Dose: 100 mls/hr Documented By: MERRITT Magnesium Sulfate/Dextrose (Magnesium Sulfate / D5w) 1 gm in 100 mls @ 50 mls/hr IV Q2H WESLY Stop: 01/29/22 06:29 Last Infusion: 01/29/22 07:04 Dose: 0 mls/hr Documented By: Admin: 01/29/22 05:03 Dose: 50 mls/hr Documented By: Infusion: 01/29/22 04:45 Dose: 50 mls/hr Documented By: Admin: 01/29/22 02:45 Dose: 50 mls/hr Documented By: DEREK Insulin Glargine (Lantus Per Unit Charge) 37 units SQ BID WESLY Stop: 02/28/22 03:59 Last Admin: 01/29/22 05:03 Dose: 37 units Documented By: MERRITT Co-signed By: RADHA Ioversol (Optiray 350 100ml) 89 ml IV ONCE ONE Stop: 01/28/22 23:22 Last Admin: 01/28/22 23:21 Dose: 89 ml Documented By: IRMAK Discharge Plan Visit Data Chief Complaint: Throat Pain ED Provider: Eric Matthews Discharge Problem: Peritonsillar abscess, Acute hyperglycemia, Failure of outpatient treatment Patient Disposition: Admitted As Inpatient Discharge Instructions Interventions: ED Discharge Assessment Last Done: 01/29/22 03:26
[2022-01-28 22:57] LABS: Basophils # (auto) 0.05 K/uL (0-0.2); Basophils % (auto) 0.4 %; Eosinophils # (auto) 0.22 K/uL (0-0.50); Eosinophils % (auto) 1.7 %; Hemoglobin 10.1 g/dl (12.0-16.0); Immature Granulocytes # (auto) 0.06 K/uL (0.00-0.02); Immature Granulocytes % (auto) 0.5 %; Lymphocytes # (auto) 4.78 K/uL (1.2-3.4); Lymphocytes % (auto) 36.7 %; Mean Corpuscular Hemoglobin 28.5 pg (25.0-34.0); Mean Corpuscular Hgb Conc 31.6 g/dL (32.0-36.0); Mean Corpuscular Volume 90.4 fL (80.0-100.0); Mean Platelet Volume 10.2 fL (9.4-12.3); Monocytes # (auto) 0.57 K/uL (0.24-0.82); Monocytes % (auto) 4.4 %; Neutrophils # (auto) 7.35 K/uL (1.4-6.5); Neutrophils % (auto) 56.3 %; Platelet Count 439 K/uL (130-400); RDW Coefficient of Variation 14.2 % (11.5-14.5); Red Blood Count 3.54 M/uL (3.93-5.22); White Blood Count 13.03 K/ul (4.8-10.8)
[2022-01-28 23:04] LABS: iSTAT Creatinine 1.6 mg/dl (0.6-1.3); iSTAT Hemoglobin 11.2 g/dl (12.0-16.0); iSTAT Ionized Calcium 1.21 mmol/l (1.12-1.32); iSTAT Potassium 4.4 mmol/L (3.3-5.0)
[2022-01-28] MEDS ORDERED: OPTIRAY 350 100ml IV ONE (23:21)
[2022-01-28 23:25] LABS: Troponin I High Sensitivity 20.4 pg/ml (0-14)
[2022-01-28] MEDS ORDERED: cefTRIAXone SODIUM 2,000 MG/70 ML BAG IV STA (23:25)
[2022-01-28] MEDS ORDERED: dexAMETHasone**PF** 10 MG/ML VIAL IV ONE (23:25)
[2022-01-28 23:33] LABS: BUN Creatinine Ratio 20.1 (10-20); C Reactive Protein 2.85 mg/dl (0-0.5); Calcium 9.4 mg/dl (8.5-10.1); Creatinine Clr Calc Pharmacy 56.1 ml/min; Est GFR (African American) 47.3 ml/min; Est GFR (Non-African American) 40.8 ml/min; Magnesium 1.6 mg/dl (1.7-2.4); Potassium 4.3 mmol/L (3.5-5.1)
--- NOTE | 2022-01-29 01:46 | History & Physical Report ---
Date of Service January 29, 2022 Assessment & Plan (1) Peritonsillar abscess: Plan: CT neck ([facility] report) shows left peritonsillar abscess, 1.5cm x 0.9cm. With pharyngeal mucosal thickening suggesting possible pharyngitis. Patient currently has moderate pain with swallowing, and associated difficulty with any PO intake besides small amounts of water and other clears. - s/p Decadron 10mg IV x1 with some improvement in symptoms - will hold on further dosing for now - s/p Ceftriaxone in ED - continue with Clindamycin 600mg IV Q8H (as patient only took PO Clinda for 24 hours before admission - unlikely to have failed this therapy) - light maintenance IVFs with LR @80cc/hr x1L - trend WBC 13/CRP 2.85 - trend both in AM - Add MRSA & Strep swabs (2) Hypomagnesemia: Plan: Mg 1.6 on presentation - repleted with 2g IV Mag sulfate. (3) Uncontrolled type 2 diabetes mellitus with hyperglycemia: Plan: Insulin-dependent, with A1c 9.0 in 04/2021. - A1c in AM - hold home PO medications - Lantus 37 units BID + SSI - BSG ACHS, may need to tighten SSI parameters given steroids (4) Chronic kidney disease, stage III (moderate): Plan: Cr 1.39 today, baseline 1.3 - 1.5. - renally dose medications, avoid nephrotoxins (5) Chronic diastolic CHF (congestive heart failure): Plan: Last TTE in 2018 with EF >70%. - continue home Bumetanide (6) GERD (gastroesophageal reflux disease): Plan: Continue home Famotidine and Omeprazole. (7) Mixed hyperlipidemia: Plan: Continue home Atorvastatin (8) Fibromyalgia: Plan: Continue home Amitriptyline. (9) Hypothyroidism: Plan: Continue home Synthroid. Plan FEN/GI: clear-liquid/heart-healthy/DM2 diet, LR @80cc/hr x1L DVT Prophylaxis: Heparin SQ Code Status: DNR/DNI - discussed with patient Disposition: med/surg History of Present Illness Chief Complaint: throat pain Primary Care Provider: DO Alexandria Zaidi is a 61yo female with PMHx significant for T2DM (A1c 9.0 in 04/2021), CKD3, chronic HFpEF, morbid obesity (BMI 54), HTN, HLD, GERD, hypothyroidism and fibromyalgia. She presented to [facility] ED on 01/29 for worsening left-sided neck pain, shortness of breath, fatigue and throat pain with swallowing x2 days. Patient has also had progressive difficulty swallowing and has only been able to drink cold water and sugar-free pudding for last 1-2 days. Patient was started on Clindamycin and took it for the last ~24 hours but had persistent and worsening symptoms despite abx. Denies fever/chills. In the ED the patient was hypertensive to 176/93 and tachycardic to 102. Afebrile and satting well on room air. Labs significant for WBC 13 (neutrophilic predominance and mild L shift), CRP 2.85, ESR 97. Hgb 10.1 (baseline 10-11). Na 134, BSG 200. Cr 1.39 (baseline 1.3 - 1.5), Mg 1.6. hsTroponin 30.4 COVID-[address] neck ([facility] report) shows left peritonsillar abscess, 1.5cm x 0.9cm. With pharyngeal mucosal thickening suggesting possible pharyngitis. Patient was given Ceftriaxone 2g IV x1 as well as Dexamethasone 10mg IV x1. Allergies Allergy/AdvReac Type Severity Reaction Status Date / Time amoxicillin Allergy Intermediate hives Verified 01/28/22 22:51 dextromethorphan Allergy Intermediate Hives Verified 01/28/22 22:51 [From NyQuil] doxylamine [From NyQuil] Allergy Intermediate Hives Verified 01/28/22 22:51 latex Allergy Intermediate RASH Verified 01/28/22 22:51 Sulfa (Sulfonamide Allergy Intermediate RASH Verified 01/28/22 22:51 Antibiotics) wheat Allergy Intermediate Hives AND Verified 01/28/22 22:51 ITCHING--ARNOLD'S MULTIGRAIN BREAD clarithromycin AdvReac Intermediate HEART RACES Verified 01/28/22 22:51 Home Medications Medication Instructions Recorded Confirmed Type amitriptyline 50 mg tablet 100 mg PO HS 12/06/17 01/28/22 History metformin 1,000 mg tablet 1,000 mg PO BID 12/06/17 01/28/22 History omeprazole 20 mg tablet,delayed 20 mg PO QPM 12/06/17 01/28/22 History release fluticasone propionate 50 1 spray intranasal QAM 03/10/19 01/28/22 History mcg/actuation nasal spray,suspension levothyroxine 175 mcg tablet 175 mcg PO QAM 03/10/19 01/28/22 History (Synthroid) atorvastatin 80 mg tablet 80 mg PO HS 02/19/20 01/28/22 History famotidine 20 mg tablet (Pepcid) 20 mg PO BID 02/19/20 01/28/22 History lisinopril 40 mg tablet 40 mg PO DAILY 02/19/20 01/28/22 History cyclobenzaprine 10 mg tablet 10 mg PO BID PRN MUSCLE SPASMS 01/19/21 01/28/22 History loratadine 10 mg tablet 10 mg PO DAILY PRN Allergy Symptoms 01/19/21 01/28/22 History cholecalciferol (vitamin D3) 50 50 mcg PO DAILY #90 caps 06/06/21 01/28/22 Rx mcg (2,000 unit) capsule albuterol sulfate 90 mcg/actuation 1 - 2 puff inhalation QID PRN 06/20/21 01/28/22 History aerosol inhaler ASTHMA pen needle, diabetic 32 gauge x 06/20/21 01/05/22 History 32" (BD Ultra-Fine Siria Pen Needle) blood sugar diagnostic (FreeStyle 06/29/21 01/05/22 History Precision Perico Strips) flash glucose scanning reader 06/29/21 01/05/22 History (FreeStyle Davy 14 Day [place]) flash glucose sensor (FreeStyle 06/29/21 01/05/22 History Davy 14 Day Sensor kit) lancets 30 gauge (OneTouch Delica 06/29/21 01/05/22 History Lancets) dapagliflozin 5 mg tablet (Farxiga) 5 mg PO DAILY #30 tabs 01/13/22 01/28/22 Rx insulin lispro 100 unit/mL See Rx Instructions subcut 01/18/22 01/28/22 Rx subcutaneous pen .COMPLEX #105 mL bumetanide 1 mg tablet 1 mg PO DAILY #90 tabs 01/19/22 01/28/22 Rx dulaglutide 1.5 mg/0.5 mL 1.5 mg subcut WK 01/28/22 01/28/22 History subcutaneous pen injector insulin detemir U-100 100 unit/mL See Rx Instructions .Route .COMPLEX 01/28/22 01/28/22 History (3 mL) subcutaneous pen (Levemir FlexTouch U-100 Insulin) Past Med/Surg History Medical History (Updated 01/29/22 @ 02:33 by Eric Martines MD) Anxiety Asthma COLD WEATHER FLARES UP/DENIES RECENT FLARE UP/ALBUTEROL ONLY PRN Bifascicular block Cataract Bilateral Chronic back pain COVID-19 Depression Diabetes mellitus with hyperglycemia, with long-term current use of insulin Fibromyalgia Foot drop LEFT GERD (gastroesophageal reflux disease) Hiatal hernia History of diverticulitis History of migraine History of torn meniscus of right knee Hx of irritable bowel syndrome Hyperglycemia Hyperlipidemia Hyperosmolar hyponatremia Hypertension Hypothyroidism Neck pain Narrowing of C6-C7 with bone spurs. CAUSES NUMBNESS IN LEFT ARM Osteoarthritis Pneumonia PTSD (post-traumatic stress disorder) RBBB SOB (shortness of breath) Tear of medial meniscus of right knee, current Umbilical hernia Uncontrolled type 2 DM with hyperosmolar nonketotic hyperglycemia Urinary tract infection HOSPITALIZED 10/2017 [facility] FOR "BACTERIAL UTI" Surgical History History of arthroscopic knee surgery "x 2 with ACL repair" History of arthroscopy of right shoulder History of arthroscopy of right shoulder History of colonoscopy History of D&C History of dilatation and curettage History of esophagogastroduodenoscopy (EGD) History of repair of ACL R History of repair of ACL L History of repair of left rotator cuff History of repair of right rotator cuff S/P rotator cuff repair Family History Grandfather Diabetes Mother Myocardial infarction Heart disease Tobacco abuse Hx of CABG Family/Other Family history of diabetes mellitus Brother Family history of diabetes mellitus Father Aortic aneurysm Grandmother (Paternal) Cerebral aneurysm Stroke Other Family history of colon cancer in mother Social History Smoking Status: Never smoker Second Hand Exposure: Yes; Hx Alcohol Use: No Hx Substance Use: No Preferred Language: Israeli Communication Ability: Effective Mortician Supplies Sales Representative Required: No Beliefs That Will Affect Care: None Current Living Situation: Alone Feels Safe at Home: Yes Assistive Devices: Glasses and Walker Review of Systems Review of Systems: All systems reviewed & are unremarkable except as noted in HPI & below Physical Exam Physical Exam: General: A&Ox3. NAD. Cooperative. Morbidly obese. HEENT: Atraumatic, normocephalic. Difficult to visualize posterior oropharynx due to large tongue. Dentition appears adequate. Pulm: CTAB A&P. -wheezes, -rales, -rhonchi. Symmetrical chest rise. No increase work of breathing. No respiratory distress. Cardiac: RRR, -mrg. Radial pulses intact and symmetrical. No LE edema. Abdominal: soft, non-tender, non-distended, BS x 4 Skin: warm, dry, no rash Results & Data Results & Data ([facility]) Vital Signs (Past 12 Hours) Vital Signs Temp Pulse Pulse Resp BP BP Pulse Ox 01/29/22 01:02 87 20 117/95 01/29/22 01:00 87 14 97 01/29/22 00:30 91 H 22 99 01/29/22 00:00 88 20 176/93 H 97 01/28/22 23:45 85 19 98 01/28/22 23:31 80 22 98 01/28/22 22:33 151/77 H 01/28/22 22:30 100 H 20 151/77 H 99 01/28/22 23:47 85 16 176/93 H 95 01/28/22 22:11 36.9 C 97 H 22 151/77 H 94 01/28/22 22:11 36.9 C 102 H 22 151/77 H 98 O2 Del Method 01/29/22 01:02 01/29/22 01:00 01/29/22 00:30 01/29/22 00:00 01/28/22 23:45 01/28/22 23:31 01/28/22 22:33 01/28/22 22:30 01/28/22 23:47 Room Air 01/28/22 22:11 01/28/22 22:11 Room Air Supervising Physician Co-Signing Physician Notes I supervised Panda Martines MD on this admission. I interviewed and examined the patient independently of him. The plan is as written in the note except for any following changes/exceptions: None 61yo F w/ hx of DM who presents with small peritonsillar abscess. Per patient, has had prior episodes of DKA when given steroids. ER provider asking for admission as much for this as for abscess. Patient presently breathing comfortably without any concern for airway issue. Will get further testing while here to hopefully better adjust abx coverage. Resident Activity Tracking Resident Involvement: Resident Care Provided Care Provided: Adult Hospital Medicine (1) Hypothyroidism Hypothyroidism type: acquired Qualified Code(s): E03.9 - Hypothyroidism, unspecified
[2022-01-29] MEDS ORDERED: CLINDAMYCIN/D5W 600 MG/50 ML BAG IV STA (02:26)
[2022-01-29] MEDS ORDERED: LACTATED RINGER'S 1,000 ML IV STA (02:26)
[2022-01-29] MEDS: MAGNESIUM SULFATE / D5W 1 GM/100 ML BAG IV SCH ×2 (02:45→05:03)
--- NOTE | 2022-01-29 03:09 | Billing Data ---
Date of Service January 29, 2022 Coding Level of Care Code 55260 Initial Inpt Care Lvl 3
[2022-01-29] MEDS ORDERED: CARBOHYDRATES FOR HYPOGLYCEMIA PO PRN (03:24)
[2022-01-29] MEDS ORDERED: GLUCAGON FOR INJ 1 MG VIAL SQ PRN (03:24)
[2022-01-29] MEDS ORDERED: GLUCOSE 10 TAB/TUBE PO PRN (03:24)
[2022-01-29] MEDS ORDERED: DEXTROSE 50% 50 ML SYRINGE IV PRN (03:24)
[2022-01-29] MEDS ORDERED: GLUCOSE 40% GEL 15 GM TUBE PO PRN (03:24)
[2022-01-29] MEDS ORDERED: LANTUS PER UNIT CHARGE SQ SCH (04:00)
[2022-01-29] MEDS: INSULIN ASPART PER UNIT SC SCH ×5 (05:04→21:36)
[2022-01-29] MEDS: HEPARIN SOD 5,000 UNIT/0.5 ML VIAL SQ SCH ×3 (05:10→19:42)
[2022-01-29] MEDS: LEVOTHYROXINE SODIUM 175 MCG TABLET PO SCH (05:31)
--- NOTE | 2022-01-29 07:32 | CT Scan Report ---
CT SCAN OF THE NECK WITH IV CONTRAST CLINICAL HISTORY: Left jaw/facial swelling. COMPARISON STUDY: No priors. TECHNIQUE: Following the IV administration of 89 cc of Optiray 350, CT scan of the soft tissues of th e neck was performed from the skull base to the upper chest. Images are reviewed in the axial, sagitt al, and coronal planes. IV contrast was administered without complication. A dose lowering techniqu e was utilized adhering to the principles of ALARA. CT DOSE: 545.64 mGy.cm FINDINGS: Pharynx: There is edema seen throughout the pharynx with mucosal thickening and hyperemia. The tonsil s are edematous. A left peritonsillar fluid collection on image #150 measures 1.5 x 1.4 cm. This is c onsistent with a small abscess. This narrows the adjacent airway. There is no evidence of mass lesion . The vocal cords are symmetric. The parapharyngeal fat is well maintained. The prevertebral/retropha ryngeal soft tissues are within normal limits. The epiglottis is normal. Lymphadenopathy: Prominent cervical lymph nodes are likely reactive. Thyroid: Normal in size and attenuation. Salivary glands: The parotid and submandibular glands are within normal limits. Brain parenchyma: The visualized brain parenchyma at the skull base is normal in appearance. Vascular structures: The carotid arteries and jugular veins are patent bilaterally. There is atherosc lerotic calcification of the carotid bulbs. Skeletal structures: The skeletal structures are osteopenic. Imaged portions of the calvarium at the skull base are within normal limits. The cervical spine appears intact noting multilevel spondylosis. No lytic or blastic lesion is seen. Sinuses and mastoids: There is trace mucosal thickening within the left maxillary antrum. The remaini ng paranasal sinuses are clear. The mastoid air cells are well pneumatized. Orbits: The bony orbits are intact. Orbital contents are normal as visualized. Lung apices: Visualized apical lung parenchyma is clear. Dentition: There is fracture of the most posterior right mandibular molar with associated periapical lucency and overlying cortical breakthrough. IMPRESSION: 1. There is evidence of pharyngitis/tonsillitis with a 1.5 cm left peritonsillar abscess. 2. This narrows the adjacent airway. 3. Fracture of the most posterior right mandibular molar with a large periapical lucency. ACT 112: Negative or not required by law. Electronically signed by: Chilango Vora M.D. 01/29/2022 7:30 AM
--- NOTE | 2022-01-29 07:56 | XRay Report ---
SINGLE VIEW CHEST CLINICAL HISTORY: Dyspnea FINDINGS: An AP, portable, upright chest radiograph is compared to chest x-ray and chest CT dated . The heart is enlarged noting atherosclerotic calcification of the thoracic aorta. The pulmon maribell vasculature is not congested. Chronic interstitial thickening is similar to previous. There are l ow lung volumes and bibasilar atelectasis. No airspace consolidation or large pleural effusion is shaun ntified. No pneumothorax is seen. The skeletal structures are osteopenic. The bony thorax is grossly intact. IMPRESSION: Cardiomegaly with no acute cardiopulmonary abnormality identified. ACT 112: Negative or not required by law. Electronically signed by: Chilango Vora M.D. 01/29/2022 7:55 AM
[2022-01-29 08:19] LABS: Basophils # (auto) 0.04 K/uL (0-0.2); Basophils % (auto) 0.4 %; Hematocrit (blood only) 31.5 % (34.1-44.9); Hemoglobin 10.2 g/dl (12.0-16.0); Immature Granulocytes # (auto) 0.12 K/uL (0.00-0.02); Immature Granulocytes % (auto) 1.1 %; Lymphocytes # (auto) 1.71 K/uL (1.2-3.4); Lymphocytes % (auto) 15.8 %; Mean Corpuscular Hemoglobin 28.6 pg (25.0-34.0); Mean Corpuscular Hgb Conc 32.4 g/dL (32.0-36.0); Mean Corpuscular Volume 88.2 fL (80.0-100.0); Mean Platelet Volume 10.4 fL (9.4-12.3); Monocytes # (auto) 0.07 K/uL (0.24-0.82); Monocytes % (auto) 0.6 %; Neutrophils # (auto) 8.86 K/uL (1.4-6.5); Neutrophils % (auto) 82.1 %; Platelet Count 453 K/uL (130-400); RDW Coefficient of Variation 13.9 % (11.5-14.5); RDW Standard Deviation 44.9 fL (36.4-46.3); Red Blood Count 3.57 M/uL (3.93-5.22)
[2022-01-29 08:36] LABS: BUN Creatinine Ratio 21.3 (10-20); C Reactive Protein 2.54 mg/dl (0-0.5); Calcium 9.3 mg/dl (8.5-10.1); Creatinine Clr Calc Pharmacy 60.7 ml/min; Est GFR (African American) 52.7 ml/min; Est GFR (Non-African American) 45.5 ml/min; Magnesium 2.2 mg/dl (1.7-2.4); Potassium 4.8 mmol/L (3.5-5.1)
[2022-01-29] MEDS: FAMOTIDINE 20 MG TAB PO SCH ×2 (08:54→19:41)
[2022-01-29] MEDS ORDERED: lisinopril 40 MG TAB PO SCH (09:00)
[2022-01-29] MEDS ORDERED: BUMETANIDE 1 MG TAB PO SCH (09:00)
[2022-01-29] MEDS: CHLORHEXIDINE GLUCONATE 0.12% 480 ML MT SCH ×2 (11:16→19:43)
[2022-01-29] MEDS: CLINDAMYCIN/D5W 600 MG/50 ML BAG IV SCH ×2 (12:48→19:39)
--- NOTE | 2022-01-29 18:28 | Communication Note ---
Date of Service: January 29, 2022 Please see admission H&P for full details of physical exam, etc. Plan as described in H&P except as otherwise stated here: Patient with significant improvement in pain and hoarseness on my exam today. Leukocytosis is also improved from 13.03-10.8. Creatinine remains at her baseline at 1.27 today. Received Decadron in the ER for peritonsillar abscess, will continue with prednisone p.o. daily starting tomorrow. Continue clindamycin 600 mg IV every 8 hours for peritonsillar abscess. Chlorhexidine mouthwash twice daily scheduled. ENT consulted, specifically spoke with Dr. Miguel A Cordero who can see patient tomorrow if contacted as he will be in the OR tomorrow. If patient continues to improve clinically may not require abscess drainage, and in fact given the size it may be difficult to do regardless. Will need ENT follow-up on discharge.
[2022-01-29] MEDS: AMITRIPTYLINE HCL 100 MG TAB PO SCH (19:39)
[2022-01-29] MEDS: ATORVASTATIN 40 MG TAB PO SCH (19:39)
[2022-01-29] MEDS: PANTOprazole 40 MG TAB PO SCH (19:40)
[2022-01-29] MEDS: ACETAMINOPHEN 500 MG TAB PO PRN (19:47)
[2022-01-29] MEDS: LANTUS PER UNIT CHARGE SQ SCH (21:37)
[2022-01-30] MEDS: CLINDAMYCIN/D5W 600 MG/50 ML BAG IV SCH ×3 (03:57→19:29)
--- NOTE | 2022-01-30 05:13 | Electrocardiogram Report ---
Test Reason : Blood Pressure : / mmHG Vent. Rate : 085 BPM Atrial Rate : 085 BPM P-R Int : 162 ms QRS Dur : 146 ms QT Int : 404 ms P-R-T Axes : -02 -76 032 degrees QTc Int : 480 ms Poor data quality, interpretation may be adversely affected Normal sinus rhythm Right bundle branch block Left anterior fascicular block Bifascicular block Possible Anterolateral infarct (cited on or before 19-FEB-2020) Abnormal ECG When compared with ECG of 10-MAR-2020 09:15, No significant change was found Confirmed by Imtiaz Castro ([id number]) on 01/30/2022 5:12:50 AM Referred By: REFERRED SELF Confirmed By:Imtiaz Castro
[2022-01-30] MEDS: HEPARIN SOD 5,000 UNIT/0.5 ML VIAL SQ SCH ×3 (06:03→19:33)
[2022-01-30] MEDS: LEVOTHYROXINE SODIUM 175 MCG TABLET PO SCH (06:03)
[2022-01-30] MEDS: INSULIN ASPART PER UNIT SC SCH ×3 (06:23→18:25)
[2022-01-30 06:36] LABS: Hematocrit (blood only) 32.5 % (34.1-44.9); Hemoglobin 10.6 g/dl (12.0-16.0); Mean Corpuscular Hemoglobin 28.4 pg (25.0-34.0); Mean Corpuscular Hgb Conc 32.6 g/dL (32.0-36.0); Mean Corpuscular Volume 87.1 fL (80.0-100.0); Mean Platelet Volume 10.2 fL (9.4-12.3); Platelet Count 474 K/uL (130-400); RDW Standard Deviation 44.6 fL (36.4-46.3); Red Blood Count 3.73 M/uL (3.93-5.22); White Blood Count 14.35 K/ul (4.8-10.8)
[2022-01-30 07:04] LABS: BUN Creatinine Ratio 19.2 (10-20); Calcium 9.4 mg/dl (8.5-10.1); Creatinine Clr Calc Pharmacy 51.1 ml/min; Est GFR (African American) 42.8 ml/min; Est GFR (Non-African American) 36.9 ml/min; Potassium 3.9 mmol/L (3.5-5.1)
[2022-01-30 07:15] LABS: Estimated Average Glucose 174 mg/dl; Hemoglobin A1C 7.7 % (4.5-5.6)
[2022-01-30] MEDS: ACETAMINOPHEN 500 MG TAB PO PRN ×2 (08:38→19:31)
[2022-01-30] MEDS: FAMOTIDINE 20 MG TAB PO SCH ×2 (08:39→19:31)
[2022-01-30] MEDS: predniSONE 20 MG TAB PO SCH (08:39)
[2022-01-30] MEDS: CHLORHEXIDINE GLUCONATE 0.12% 480 ML MT SCH ×2 (08:40→19:32)
[2022-01-30] MEDS: LANTUS PER UNIT CHARGE SQ SCH ×2 (08:41→21:35)
--- NOTE | 2022-01-30 18:23 | Hospitalist Progress Note ---
Date of Service January 30, 2022 Assessment & Plan (1) Peritonsillar abscess: Plan: CT neck shows left peritonsillar abscess, 1.5cm x 1.4cm. With pharyngeal mucosal thickening suggesting possible pharyngitis. With moderate pain with swallowing, and associated difficulty with any PO intake besides small amounts of water and other clears. - s/p Decadron 10mg IV x1 in ER - s/p Ceftriaxone in EDx 1 dose, then continued on Clindamycin 600mg IV Q8H (as patient only took PO Clinda for 24 hours before admission - unlikely to have failed this therapy) MRSA and Strep swabs both negative With left sided facial and neck swelling as well No fevers WBC count had improved but back up 2/2 steroids she received -Await ENT/OMFS eval today to see if needs drainage -NPO for now but if no procedure, will adv diet to full liquids for this evening -continue IV Clinda -continue prednisone 40mg daily for reduction in edema (2) PERLITA (acute kidney injury): Plan: preparer samples and repairs up to 1.51 today from 1.27 -possibly secondary to dehydration from poor po intake in setting of ENT infection and continued ACEi and Bumex use -hold ACEi and lasix -give 1 L LR at 80 mL/hr -follow BMP in AM (3) Uncontrolled type 2 diabetes mellitus with hyperglycemia: Plan: Insulin-dependent, with A1c 9.0 in 04/2021. - A1c fairly well controlled at 7.7% - hold home medications -continue Lantus and SSI-gave half dose of Lantus this AM while NPO (4) Chronic kidney disease, stage III (moderate): Plan: Special Officer baseline 1.3 - 1.5. With PERLITA as above - renally dose medications, avoid nephrotoxins (5) Chronic diastolic CHF (congestive heart failure): Plan: Last TTE in 2018 with EF >70%. - hold home Bumetanide -not volume overloaded and is infact mildly dehydrated and giving IVFs as above (6) GERD (gastroesophageal reflux disease): Plan: Continue home Famotidine and PPI (7) Mixed hyperlipidemia: Plan: Continue home Atorvastatin (8) Fibromyalgia: Plan: Continue home Amitriptyline (9) Hypothyroidism: Plan: Continue home Synthroid TSH normal in 01/2021 Plan DVT Prophylaxis: Heparin SQ Code Status: DNR/DNI - discussed with patient Disposition: continued stay med/surg while awaiting surgical eval. If no surgery planned, likely could advance diet and dc to home on Wednesday 01/31 Admission and Anticipated Discharge Date Admission Date: January 29, 2022 Subjective Pt still having pain in left side of face and neck and inside mouth and sharp pains with swallowing. NPO all day, awaiting OMFS eval. No CP, SOB, diarrhea, leg swelling. Review of Systems Review of Systems: All systems reviewed & are unremarkable except as noted in HPI & below Physical Exam Constitutional: WD/WN, vitals as above Eyes: + anicteric sclerae and EOM intact bilaterally ENMT: left posterior oropharynx with flattening and swelling, no erythema or exudate, with deviation of uvula to right Neck: left sided submandibular and left facial edema, +TTP, no overlying erythema Respiratory: normal respiratory effort, lungs clear to auscultation Cardiovascular: RRR, no murmur, no edema Chest (Breasts): Chest: normal inspection of chest Gastrointestinal (Abdomen): normal bowel sounds, soft, nontender, no hepatosplenomegaly Musculoskeletal: Extremities: extremities normal to inspection; no cyanosis and no clubbing Skin: no rashes, warm and dry Neurologic: moves all extremities and awake; no focal motor deficits Psychiatric: A+Ox3, euthymic affect Lymphatic: no lymphedema Results & Data Results & Data ([facility]) Vital Signs (Past 12 Hours) Vital Signs Temp Pulse Pulse Pulse Resp BP BP 01/30/22 14:53 36.7 C 78 16 154/79 H 01/30/22 12:10 143/79 H 01/30/22 11:41 36.5 C 80 18 01/30/22 11:15 78 16 125/84 01/30/22 08:03 36.4 C L 73 18 BP Pulse Ox O2 Del Method 01/30/22 14:53 98 Room Air 01/30/22 12:10 01/30/22 11:41 176/98 H 97 Room Air 01/30/22 11:15 100 Room Air 01/30/22 08:03 178/95 H 96 Room Air Laboratory Results 01/30/22 06:09 01/30/22 06:09 PG Care Time/CCT Total # of Minutes Spent Total Time Spent with Patient: Total time spent is greater than 50% in coordination of care (as documented) at patient's floor/unit and/or counseling patient: Coding Level of Care Code 85429 Subseq Hosp Care Lvl 2 Diagnoses Peritonsillar abscess J36 PERLITA (acute kidney injury) N17.9 Uncontrolled type 2 diabetes mellitus with hyperglycemia E11.65 Chronic kidney disease, stage III (moderate) N18.30 Chronic diastolic CHF (congestive heart failure) I50.32 GERD (gastroesophageal reflux disease) K21.9 Mixed hyperlipidemia E78.2 Fibromyalgia M79.7 Hypothyroidism E03.9 Hypothyroidism type: acquired (1) Hypothyroidism Hypothyroidism type: acquired Qualified Code(s): E03.9 - Hypothyroidism, unspecified
[2022-01-30] MEDS ORDERED: LACTATED RINGER'S 1,000 ML IV SCH (18:30)
[2022-01-30] MEDS: PANTOprazole 40 MG TAB PO SCH (19:30)
[2022-01-30] MEDS: AMITRIPTYLINE HCL 100 MG TAB PO SCH (19:30)
[2022-01-30] MEDS: ATORVASTATIN 40 MG TAB PO SCH (19:32)
[2022-01-30] MEDS ORDERED: Nursing to Pharmacy Communication SCH (20:15)
[2022-01-30] MEDS ORDERED: INSULIN ASPART PER UNIT SC SCH (21:00)
[2022-01-30] MEDS ORDERED: PHARMACY GLYCEMIC MGMT CONSULT PRN (21:51)
[2022-01-31] MEDS: INSULIN ASPART PER UNIT SC SCH ×2 (01:24→05:48)
[2022-01-31] MEDS: CLINDAMYCIN/D5W 600 MG/50 ML BAG IV SCH ×2 (04:15→12:36)
[2022-01-31] MEDS: LEVOTHYROXINE SODIUM 175 MCG TABLET PO SCH (05:48)
[2022-01-31] MEDS: HEPARIN SOD 5,000 UNIT/0.5 ML VIAL SQ SCH (05:48)
[2022-01-31] MEDS: ACETAMINOPHEN 500 MG TAB PO PRN (07:52)
[2022-01-31] MEDS: CHLORHEXIDINE GLUCONATE 0.12% 480 ML MT SCH (07:53)
[2022-01-31] MEDS: FAMOTIDINE 20 MG TAB PO SCH (07:53)
[2022-01-31] MEDS: predniSONE 20 MG TAB PO SCH (07:53)
[2022-01-31] MEDS ORDERED: LANTUS PER UNIT CHARGE SQ ONE (08:45)
[2022-01-31] MEDS ORDERED: INSULIN HUMAN NPH SC SCH (09:00)
--- NOTE | 2022-01-31 11:26 | Oral/Maxillofacial Progress Nt ---
Date of Service January 31, 2022 Assessment & Plan Admission and Anticipated Discharge Date Admission Date: January 29, 2022 Subjective Alexandria is feeling much better No pain in throat, able to swallow and no feeling of lump in her throat. No need for surgical I&D at this time as the antibiotics have improved the symptoms. I would suggest follow up with ENT Follow up with a dentist in the future Suggest clindamycin PO for 10 days OK for discharge today as per medical Results & Data ([facility]) Vital Signs (Past 12 Hours) Vital Signs Temp Pulse Resp BP Pulse Ox O2 Del Method 01/31/22 06:25 36.6 C 73 18 131/81 100 Room Air PG Care Time/CCT Total # of Minutes Spent Total Time Spent with Patient: Total time spent is greater than 50% in coordination of care (as documented) at patient's floor/unit and/or counseling patient: Coding Level of Care Code None
[2022-01-31] MEDS ORDERED: Nursing to Pharmacy Communication SCH (11:45)
[2022-01-31] MEDS ORDERED: INSULIN ASPART PER UNIT SC SCH (11:45)
--- NOTE | 2022-01-31 14:21 | Pharmacy Report ---
Pharmacy Glycemic Short Note 2 - Date of Service January 31, 2022 - Glycemic Short BSG Results (Last 24 hours): 01/30/22 01/30/22 01/30/22 18:19 20:32 20:34 POC Glucose 252 H 355 H* 381 H* 01/31/22 01/31/22 01/31/22 01:01 05:43 12:14 POC Glucose 273 H 163 H 223 H OUTPATIENT ANTIDIABETIC REGIMEN: * Levemir 54 units SC qAM + 43 units SC qPM * Humalog 30 units SC w/ breakfast + 45 units SC w/ lunch + 40 units SC w/ dinner * Trulicity 1.5 mg SC every Sunday * Metformin 1000 mg PO BIDM * Farxiga 5 mg PO qAM * HbA1c = 7.7% (01/29/22) ASSESSMENT: * 61 yo F admitted secondary to a peritonsillar abscess. Pharmacy has been consulted to assist with inpatient glycemic management. Patient was NPO this morning until evaluated by senior benefits specialist for potential OR trip. Now ordered a diet as no surgery is indicated. * BSGs were trending up throughout the day yesterday, likely due to steroids: [phone] mg/dL. * Fasting BSG was 163 mg/dL this AM. Stressors remain stable with IV clindamycin and PO prednisone 40 mg qAM. * Continue with reduced AM Lantus dose secondary to NPO status. Added NPH to try to help cover steroids. * No changes to Novolog. * Now that diet is ordered and being tolerated, will increase AM Lantus and NPH for tomorrow. PLAN FOR INPATIENT GLYCEMIC CONTROL: * Hold outpatient oral diabetes medications * Basal insulin * Lantus 20 units SC this morning, 40 units SC this HS and NPH 25 units this AM * Lantus 40 units SC BID (starting tomorrow) * NPH 35 units SC qAM (starting tomorrow) - to be given with prednisone - hold if prednisone held/discontinued * Bolus insulin * NovoLog per scale ACHS or Q6hrs while NPO * Goal Range: Low 110 mg/dL - High 140 mg/dL * Correction Factor: 8 mg/dL/unit * Nutritional / Prandial insulin per carb ratio of 1 unit per 3 grams CHO consumed
[2022-02-01] MEDS ORDERED: INSULIN ASPART PER UNIT SC ONE (02:00)
[2022-02-01] MEDS ORDERED: INSULIN HUMAN NPH SC SCH (09:00)
--- NOTE | 2022-02-06 13:35 | Discharge Summary ---
Date of Service January 31, 2022 Admission HPI Per Admitting Provider Alexandria Smith is a 61yo female with PMHx significant for T2DM (A1c 9.0 in 04/2021), CKD3, chronic HFpEF, morbid obesity (BMI 54), HTN, HLD, GERD, hypothyroidism and fibromyalgia. She presented to [facility] ED on 01/29 for worsening left-sided neck pain, shortness of breath, fatigue and throat pain with swallowing x2 days. Patient has also had progressive difficulty swallowing and has only been able to drink cold water and sugar-free pudding for last 1-2 days. Patient was started on Clindamycin and took it for the last ~24 hours but had persistent and worsening symptoms despite abx. Denies fever/chills. In the ED the patient was hypertensive to 176/93 and tachycardic to 102. Afebrile and satting well on room air. Labs significant for WBC 13 (neutrophilic predominance and mild L shift), CRP 2.85, ESR 97. Hgb 10.1 (baseline 10-11). Na 134, BSG 200. Cr 1.39 (baseline 1.3 - 1.5), Mg 1.6. hsTroponin 30.4 COVID-[address] neck ([facility] report) shows left peritonsillar abscess, 1.5cm x 0.9cm. With pharyngeal mucosal thickening suggesting possible pharyngitis. Patient was given Ceftriaxone 2g IV x1 as well as Dexamethasone 10mg IV x1. Principal Diagnosis peritonsillar abscess Discharge Exam Constitutional: WD/WN, vitals as above Eyes: + anicteric sclerae and EOM intact bilaterally ENMT: left posterior oropharynx with decreased swelling, no erythema or exudate, Neck: left sided submandibular and left facial edema, +TTP, no overlying erythema Respiratory: normal respiratory effort, lungs clear to auscultation Cardiovascular: RRR, no murmur, no edema Chest (Breasts): Chest: normal inspection of chest Gastrointestinal (Abdomen): normal bowel sounds, soft, nontender, no hep atosplenomegaly Musculoskeletal: Extremities: extremities normal to inspection; no cyanosis and no clubbing Skin: no rashes, warm and dry Neurologic: moves all extremities and awake; no focal motor deficits Psychiatric: A+Ox3, euthymic affect Lymphatic: no lymphedema Discharge Data Allergies Allergy/AdvReac Type Severity Reaction Status Date / Time amoxicillin Allergy Intermediate hives Verified 01/28/22 22:51 dextromethorphan Allergy Intermediate Hives Verified 01/28/22 22:51 [From NyQuil] doxylamine [From NyQuil] Allergy Intermediate Hives Verified 01/28/22 22:51 latex Allergy Intermediate RASH Verified 01/28/22 22:51 Sulfa (Sulfonamide Allergy Intermediate RASH Verified 01/28/22 22:51 Antibiotics) clarithromycin AdvReac Intermediate HEART RACES Verified 01/28/22 22:51 Umesh's multigrain bread AdvReac Hives Uncoded 01/29/22 11:20 Consultations 01/29/22 01:39 ED Decision to Admit Stat 01/29/22 08:56 Consult Otolaryngology (Head and Neck) Routine Ordered Studies 01/28/22 22:22 CT soft tissue neck w con Stat Hospital Course (1) Peritonsillar abscess: CT neck shows left peritonsillar abscess, 1.5cm x 1.4cm. With pharyngeal mucosal thickening suggesting possible pharyngitis. With moderate pain with swallowing, and associated difficulty with any PO intake besides small amounts of water and other clears. - s/p Decadron 10mg IV x1 in ER - s/p Ceftriaxone in EDx 1 dose, then continued on Clindamycin 600mg IV Q8H (as patient only took PO Clinda for 24 hours before admission - unlikely to have failed this therapy) MRSA and Strep swabs both negative With left sided facial and neck swelling as well No fevers WBC count had improved but back up 2/2 steroids she received Discharge plan: -OMFS eval recommends only antibiotics, no drainage required -advanced diet, patient is agreeable to discharge -continue PO clindamycin for discharge; complete 10 days. -stop steroids. (2) PERLITA (acute kidney injury): -possibly secondary to dehydration from poor po intake in setting of ENT infection and continued ACEi and Bumex use -will recommend monitoring her kidney numbers at followup PCP visit. (3) Uncontrolled type 2 diabetes mellitus with hyperglycemia: Insulin-dependent, with A1c 9.0 in 04/2021. 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 With PERLITA as above - renally dose medications, avoid nephrotoxins (5) Chronic diastolic CHF (congestive heart failure): Last TTE in 2018 with EF >70%. - hold home Bumetanide -not volume overloaded and is infact mildly dehydrated and giving IVFs as above (6) GERD (gastroesophageal reflux disease): Continue home Famotidine and PPI (7) Mixed hyperlipidemia: Continue home Atorvastatin (8) Fibromyalgia: Continue home Amitriptyline (9) Hypothyroidism: Continue home Synthroid TSH normal in 01/2021 Plan DVT Prophylaxis: Heparin SQ Code Status: DNR/DNI - discussed with patient Disposition: continued stay med/surg while awaiting surgical eval. If no surgery planned, likely could advance diet and dc to home on Wednesday 01/31 Total Time Total Time Spent Total Time Spent (In Minutes): 35 Discharge Plan Discharge Items Patient Disposition: Home - Self-Care Reason For Visit: PERITONSILLAR ABSCESS Discharge Diagnosis: peritonsillar abscess Activity: Resume your previous activity Non-emergency contact: Primary Care Provider Call non-emergency contact if: you have any medication questions Follow-up/Referrals: Natali Langston DO [Primary Care Provider] - Shaunna Montiel MD [Physician] - (Dr. Montiel's office will call you with appointment day and time) Diet: Carb Consistent or DM2 Diet Texture: Dental soft (bite-sized) Addtl Attending Provider Instructions: recommend a soft diet, prefer soups. Try to not eat anything that could scratch your throat. Dr. Monteil will call you with an appointment.Please resume your antibiotics at 6pm. Please continue antibiotics until you are done with them. Pending Studies at Discharge: No Stand-Alone Forms: My [facility] REVShare, Smoking Cessation Medications and DC Order Prescriptions: New clindamycin HCl 300 mg capsule 300 mg PO Q6H 9 Days Qty: 36 0RF Continued Farxiga 5 mg tablet 5 mg PO DAILY Qty: 30 2RF insulin lispro 100 unit/mL insulin pen See Rx Instructions SUBCUT .COMPLEX Qty: 105 3RF Rx Instructions: TAKES 30 UNITS QAM, 45 UNITS AT NOON, THEN 40 UNITS QPM. bumetanide 1 mg tablet 1 mg PO DAILY Qty: 90 3RF (DME) FreeStyle Precision Perico Strips Strip See Rx Instructions .Route Rx Instructions: Test once daily with Freestyle Davy PRN (DME) FreeStyle Davy 14 Day Sensor Kit See Rx Instructions .Route Rx Instructions: As directed (DME) FreeStyle Davy 14 Day [place] Misc See Rx Instructions .Route Rx Instructions: As directed (DME) pen needle, diabetic [BD Ultra-Fine Siria Pen Needle] 32 gauge x 5/32" needle See Rx Instructions .Route Rx Instructions: Use 4 per day with insulin injection (DME) lancets [OneTouch Delica Lancets] 30 gauge misc See Rx Instructions .Route Rx Instructions: Test blood sugar once daily PRN cyclobenzaprine 10 mg tablet 10 mg PO BID PRN (Reason: MUSCLE SPASMS) loratadine 10 mg tablet 10 mg PO DAILY PRN (Reason: Allergy Symptoms) cholecalciferol (vitamin D3) 50 mcg (2,000 unit) capsule 50 mcg PO DAILY Qty: 90 3RF levothyroxine [Synthroid] 175 mcg Tablet 175 mcg PO QAM fluticasone propionate 50 mcg/actuation [place],Suspension 1 spray INTRANASAL QAM atorvastatin 80 mg tablet 80 mg PO HS lisinopril 40 mg tablet 40 mg PO DAILY famotidine [Pepcid] 20 mg tablet 20 mg PO BID amitriptyline 50 mg Tablet 100 mg PO HS metformin 1,000 mg Tablet 1,000 mg PO BID omeprazole 20 mg Tablet,Delayed Release (Dr/Ec) 20 mg PO QPM albuterol sulfate 90 mcg/actuation HFA aerosol inhaler 1 - 2 puff INHALATION QID PRN (Reason: ASTHMA) Levemir FlexTouch U-100 Insuln 100 unit/mL (3 mL) insulin pen See Rx Instructions .ROUTE .COMPLEX MDD 97 UNITS Rx Instructions: 54 UNITS SC QAM, THEN 43 UNITS QPM. TDD 97 UNITS. dulaglutide 1.5 mg/0.5 mL pen injector 1.5 mg subcut WK Rx Instructions: TAKES ON WEDNESDAYS Discharge Orders: Discharge Order (Routine); Ordered 01/31/22 Ordered By: Epifanio Calvert/Other Patient Handouts: Peritonsillar Abscess Admission Data Admit Date/Time: 01/29/22 02:22 Attending Provider: Epifanio Ng Admit Provider: Eric Martines Primary Care Provider: Grine,Natali M Other Providers: Zurdo Umana ; Shaunna Montiel How Other Interventions: Discharge Summary Assessment (RN) Last Done: 01/31/22 14:33 Coding Level of Care Code D/C DAY MANAGEMENT >30 MINS Diagnoses Peritonsillar abscess J36 PERLITA (acute kidney injury) N17.9 Uncontrolled type 2 diabetes mellitus with hyperglycemia E11.65 Chronic kidney disease, stage III (moderate) N18.30 Chronic diastolic CHF (congestive heart failure) I50.32 GERD (gastroesophageal reflux disease) K21.9 Mixed hyperlipidemia E78.2 Fibromyalgia M79.7 Hypothyroidism E03.9 Hypothyroidism type: acquired
== END 2022-01-31 15:51 | disposition home or self-care (01) | DRG 153 ==
LOC: ED 22:14 → 3E 01-29 02:22 → INTOOBSV 01-29 02:22 → SUATTDRO 01-29 02:22 → 3E 01-29 03:26

== ENCOUNTER 2023-01-11 10:30 | Inpatient (IN) ==
[2023-01-11] MEDS ORDERED: ONDANSETRON INJ 2 MG/ML 2 ML VIAL IV STA (11:17)
[2023-01-11] MEDS ORDERED: DOXYCYCLINE HYCLATE 100 MG in DEXTROSE 5% MINI-B 100 ML IV STA (11:27)
[2023-01-11] MEDS ORDERED: CEFEPIME 2,000 MG/20 ML VIAL IV STA (11:27)
[2023-01-11] MEDS ORDERED: SODIUM CHLORIDE 0.9% 1,000 ML IV SCH (11:30)
[2023-01-11] MEDS: ACETAMINOPHEN 500 MG TAB PO STA (11:41)
--- NOTE | 2023-01-11 11:52 | Emergency Department Note ---
Impression & Plan Heel ulceration, Elevated lactic acid level, Pseudomonas infection ED Provider Note CHIEF COMPLAINT: Weakness, ill feeling, right foot wound HISTORY OF PRESENT ILLNESS: This 62-year-old patient presents to the emergency department with complaints of generalized weakness, fatigue, right ankle wound that is being treated by the wound care center. The patient states she was placed on topical gentamicin and has been doing daily dressing changes. She had a culture in November that was positive for Pseudomonas. In December the patient's wound was recultured and positive for methicillin sensitive Staph aureus. Patient does not complain of pain, but her home health nurse was there to change the dressing today. She relayed to the primary care that the patient was feeling weak and unusually tired. The wound does have a foul smell but no apparent discharge. She was referred to the emergency department for further evaluation. She was recently prescribed doxycycline for the wound but has not yet picked it up. REVIEW OF SYSTEMS: A review of systems was performed with positives and pertinent negatives listed in the history of present illness. 10 systems were reviewed and are otherwise negative. ALLERGIES: see below MEDICATIONS: see below PMH: see below SOCIAL HISTORY: see below DDx: Electrolyte abnormality, dehydration, renal failure, sepsis, cellulitis, viral etiology such as COVID-19, pneumonia, UTI among others PHYSICAL EXAM: Vital signs reviewed. General: Chronically ill-appearing 62-year-old, in no significant distress. HEENT: No scleral icterus, PERRLA, neck supple. Moist mucous membranes Cardiovascular: Regular rate and rhythm, no extra sounds. Pulmonary: Clear to auscultation bilaterally, normal work of breathing. Abdomen: Soft, obese, nontender, nondistended, positive bowel sounds. Musculoskeletal: Atraumatic, no peripheral edema. Neurologic: Patient awake alert and oriented x 3, speech is clear Skin: Warm, dry, no rash. Right heel with a large ulceration with relatively fresh debridement. No bleeding. No significant drainage although the dressing that was removed was saturated in a serous appearing dried drainage. Wound does have a foul odor, no surrounding cellulitis. EXTERNAL medical records: Wound care visit notes dated 12/06, 12/14 and 01/04/2023. Wound culture results 11/21/2022 and 01/04/23 EMERGENCY DEPARTMENT COURSE/MDM: This patient was evaluated and appeared to be in no significant distress. On the right heel, there is a fairly weathered appearing dressing with dried fluid and malodorous. The patient's dressing was taken off and there is a large ulceration noted. Patient's vital signs did remain stable. IV access was obtained and laboratory work was drawn including blood cultures and lactate. X-ray of the ankle was obtained and reveals evidence of soft tissue edema, ulceration but no bony erosion. Patient's laboratory work reveals an elevated lactate. IV fluids were initiated however the patient's blood pressure and heart rate were stable. She was given fluids based on her ideal body weight at 30 mL/kg. Given the patient's previous culture results, I did speak with the clinical pharmacist who recommended IV cefepime and doxycycline. Case was discussed with the hospitalist service due to the elevated lactate and generalized malaise. Patient expressed understanding of the plan and agreed. MONITORING: An order for cardiac monitoring was placed and the patient is noted to be in a normal sinus rhythm at 67 beats per minute. RADIOLOGY: X-ray of the chest to my interpretation reveals no evidence of focal lung consolidation or failure, otherwise defer to radiology X-ray of the right foot per radiology reveals evidence of a 5th phalangeal fracture of indeterminate age, there is evidence of ulceration at the heel of the soft tissue, no bony erosion. Please see final read below EKG: To my interpretation reveals normal sinus rhythm at 69 bpm. Right bundle branch block, left anterior fascicular block, QTc of 488. No PVC, no PAC. Normal ST segments. No significant change from previous dated January 28, 2022 DISPOSITION: Admit Past Med/Surg History Medical History History of anesthesia reaction woke up during shoulder arthroscopy Peritonsillar abscess recent admission @ [facility] 01/29/22 for this--per pt has finished all antibiotics for this, no further issues at this time Chronic kidney disease, stage III (moderate) SOB (shortness of breath) RBBB Hypoxia Hyperglycemia due to type 2 diabetes mellitus Pneumonia due to COVID-19 virus COVID-19 hx of in 2019--per pt was hospitalized for COVID--states no symptoms currently Bifascicular block Foot drop LEFT Chronic back pain Osteoarthritis Hx of irritable bowel syndrome Cataract Bilateral Umbilical hernia Hiatal hernia PTSD (post-traumatic stress disorder) History of diverticulitis Tear of medial meniscus of right knee, current Morbid obesity with BMI of 50.0-59.9, adult Diabetes mellitus with hyperglycemia, with long-term current use of insulin Neck pain Narrowing of C6-C7 with bone spurs. CAUSES NUMBNESS IN LEFT ARM GERD (gastroesophageal reflux disease) Depression Anxiety Hyperlipidemia Hypertension Asthma COLD WEATHER FLARES UP/DENIES RECENT FLARE UP/ALBUTEROL ONLY PRN History of migraine Hyperosmolar hyponatremia Fibromyalgia Hypothyroidism Surgical History History of repair of right rotator cuff History of repair of left rotator cuff History of repair of ACL L S/P rotator cuff repair History of arthroscopy of right shoulder History of dilatation and curettage History of repair of ACL R History of esophagogastroduodenoscopy (EGD) History of colonoscopy History of D&C Family History Grandfather Diabetes Mother Myocardial infarction Heart disease Tobacco abuse Hx of CABG Family/Other Family history of diabetes mellitus Brother Family history of diabetes mellitus Father Aortic aneurysm Grandmother (Paternal) Cerebral aneurysm Stroke Other Family history of colon cancer in mother Social History Smoking Status: Never smoker Second Hand Exposure: Yes; Do You Dip or Chew Tobacco: No; Hx Alcohol Use: No Hx Substance Use: No Preferred Language: Macanese Communication Ability: Effective Visual Impairment: No Limitations Telephone Recorder Required: No Beliefs That Will Affect Care: None marital status: Current Living Situation: Alone Feels Safe at Home: Yes Safety Concerns: Feels Safe At This Time Assistive Devices: Walker Allergies Allergies Allergy/AdvReac Type Severity Reaction Status Date / Time amoxicillin Allergy Intermediate hives Verified 01/11/23 13:21 dextromethorphan Allergy Intermediate Hives Verified 01/11/23 13:21 [From NyQuil] doxylamine [From NyQuil] Allergy Intermediate Hives Verified 01/11/23 13:21 latex Allergy Intermediate RASH Verified 01/11/23 13:21 Sulfa (Sulfonamide Allergy Intermediate RASH Verified 01/11/23 13:21 Antibiotics) clarithromycin AdvReac Intermediate HEART RACES Verified 01/11/23 13:21 Umesh's multigrain bread Allergy Intermediate Hives Uncoded 01/11/23 13:21 Home Meds Home Medications Medication Instructions Recorded Confirmed amitriptyline 50 mg tablet 100 mg PO HS 12/06/17 01/11/23 metformin 1,000 mg tablet 1,000 mg PO BID 12/06/17 01/11/23 omeprazole 20 mg tablet,delayed 20 mg PO QPM 12/06/17 01/11/23 release fluticasone propionate 50 1 spray intranasal QAM 03/10/19 01/11/23 mcg/actuation nasal spray,suspension levothyroxine 175 mcg tablet 175 mcg PO QAM 03/10/19 01/11/23 (Synthroid) atorvastatin 80 mg tablet 80 mg PO HS 02/19/20 01/11/23 famotidine 20 mg tablet (Pepcid) 20 mg PO BID 02/19/20 01/11/23 loratadine 10 mg tablet 10 mg PO DAILY PRN Allergy Symptoms 01/19/21 01/11/23 albuterol sulfate 90 mcg/actuation 1 - 2 puff inhalation QID PRN 06/20/21 01/11/23 aerosol inhaler ASTHMA pen needle, diabetic 32 gauge x 06/20/21 12/27/22 5/32" (BD Ultra-Fine Siria Pen Needle) blood sugar diagnostic (FreeStyle 06/29/21 12/27/22 Precision Perico Strips) flash glucose scanning reader 06/29/21 12/27/22 (FreeStyle [facility] [place]) flash glucose sensor (FreeStyle 06/29/21 12/27/22 [facility] Sensor kit) lancets 30 gauge (OneTouch Delica 06/29/21 12/27/22 Lancets) insulin detemir U-100 100 unit/mL See Rx Instructions .Route .COMPLEX 01/28/22 01/11/23 (3 mL) subcutaneous pen (Levemir FlexTouch U-100 Insulin) bumetanide 1 mg tablet 1 mg PO QAM 02/09/22 01/11/23 cholecalciferol (vitamin D3) 50 50 mcg PO QAM 02/09/22 01/11/23 mcg (2,000 unit) capsule dulaglutide 1.5 mg/0.5 mL 1.5 mg subcut .Weekly 07/25/22 01/11/23 subcutaneous pen injector (Trulicity) amlodipine 2.5 mg tablet 2.5 mg PO QAM 01/11/23 01/11/23 doxycycline hyclate 100 mg tablet 0 mg PO bid 01/11/23 01/11/23 Previous Rx's Medication Instructions Recorded insulin aspart U-100 100 unit/mL See Rx Instructions .Route 04/17/22 (3 mL) subcutaneous pen (Novolog .COMPLEX #105 mL FlexPen U-100 Insulin aspart) dapagliflozin propanediol 5 mg 5 mg PO QAM #90 tabs 10/19/22 tablet (Farxiga) Results & Data (ED) Vital Signs Vital Signs - 24 hr 01/11/23 10:37 01/11/23 11:47 01/11/23 12:10 Temperature 36.8 C Temperature Source Oral Pulse Rate 90 70 Pulse Rate [Apical] 64 Pulse Rhythm Regular Respiratory Rate 16 18 16 Respiratory Effort / Characteristics Non-Labored Respiratory Depth Normal Respiratory Pattern Regular Regular Blood Pressure 201/131 H Blood Pressure [Left Arm] 170/80 H Blood Pressure Mean 154 Blood Pressure Mean [Left Arm] 110 Blood Pressure Position [Left Arm] Lying Pulse Oximetry 99 97 99 Oxygen Delivery Method Room Air Room Air Room Air Sepsis Recent Fever Within 48 Hours No Sepsis New/Unexplained Change in Mental Status N/A Sepsis Action Taken by Nursing No Action Required 01/11/23 12:17 01/11/23 13:58 Temperature Temperature Source Pulse Rate 65 Pulse Rate [Apical] 67 Pulse Rhythm Respiratory Rate 18 Respiratory Effort / Characteristics Non-Labored Respiratory Depth Normal Respiratory Pattern Blood Pressure Blood Pressure [Left Arm] 162/99 H Blood Pressure Mean Blood Pressure Mean [Left Arm] 120 Blood Pressure Position [Left Arm] Lying Pulse Oximetry 97 Oxygen Delivery Method Room Air Sepsis Recent Fever Within 48 Hours Sepsis New/Unexplained Change in Mental Status Sepsis Action Taken by [facility] Medications Current Medication List: was personally reviewed by me Laboratory Data Attestation: I reviewed the patient's lab results. 01/12/23 07:30 01/12/23 07:30 Lab Results 01/11/23 01/11/23 Range/Units 11:38 14:03 WBC 11.67 H (4.8-10.8) K/ul RBC 3.34 L (4.20-5.40) M/uL Hgb 8.7 L (12.0-16.0) g/dl Hct 29.1 L (37.0-47.0) % MCV 87.1 (80.0-100.0) fL MCH 26.0 (25.0-34.0) pg MCHC 29.9 L (32.0-36.0) g/dL RDW Std Deviation 50.6 H (36.4-46.3) fL RDW Coeff of Sylvia 15.9 H (11.5-14.5) % Plt Count 381 (130-400) K/uL MPV 11.3 (9.4-12.4) fL Immature Gran % (Auto) 0.5 % Neut % (Auto) 58.2 % Lymph % (Auto) 31.9 % [place] % (Auto) 6.3 % Eos % (Auto) 2.6 % Baso % (Auto) 0.5 % Neut # (Auto) 6.79 H (1.40-6.50) K/uL Lymph # (Auto) 3.72 H (1.20-3.40) K/uL [place] # (Auto) 0.74 H (0.11-0.59) K/uL Eos # (Auto) 0.30 (0.00-0.50) K/uL Baso # (Auto) 0.06 (0.00-0.20) K/uL Immature Gran # (Auto) 0.06 (0.01-0.20) K/uL Sodium 135 L (136-145) mmol/L Potassium 4.2 (3.5-5.1) mmol/L Chloride 107 (98-107) mmol/L Carbon Dioxide 20 L (21-32) mmol/L Anion Gap 8 (3-11) BUN 21 (6-23) mg/dl Creatinine 1.89 H (0.6-1.2) mg/dl Est Cr Clr Drug Dosing 40.8 ml/min Est GFR ( Amer) 32.4 ml/min Est GFR (Non-Af Amer) 27.9 ml/min BUN/Creatinine Ratio 11.1 (10-20) Glucose 95 (70-99(Fasting)) mg/dl Lactate 2.9 H* 1.9 (0.4-2.0) mmol/L Calcium 9.0 (8.6-10.3) mg/dl Magnesium 1.7 (1.7-2.4) mg/dl Total Bilirubin 0.2 (0.2-1.0) mg/dl AST 13 (13-39) U/L ALT 5 L (7-52) U/L Alkaline Phosphatase 86 (34-104) U/L Total Protein 7.3 (6.0-8.3) gm/dl Albumin 3.0 L (3.4-5.0) gm/dl Globulin 4.3 H (2.5-4.0) gm/dl Albumin/Globulin Ratio 0.7 L (0.9-2) Procalcitonin < 0.05 (0-0.5) ng/ml TSH 1.282 (0.300-4.500) uIu/ml Administered Medications Amitriptyline HCl (Amitriptyline Hcl 100 Mg Tab) 100 mg PO [facility] Stop: 02/10/23 20:59 Last Admin: 01/12/23 20:30 Dose: 100 mg Documented By: Admin: 01/11/23 21:36 Dose: 100 mg Documented By: LBN Atorvastatin Calcium (Atorvastatin 40 Mg Tab) 80 mg PO [facility] Stop: 02/10/23 20:59 Last Admin: 01/12/23 20:29 Dose: 80 mg Documented By: Admin: 01/11/23 21:37 Dose: 80 mg Documented By: PASTOR Bumetanide (Bumetanide 1 Mg Tab) 1 mg PO QA [facility] Stop: 02/11/23 08:59 Last Admin: 01/12/23 08:01 Dose: 1 mg Documented By: RITCHIE Dextrose (Dextrose 50% 50 Ml Syringe) 25 - 50 ml IV UD PRN; Protocol PRN Reason: Hypoglycemia Protocol Stop: 02/10/23 14:41 Last Admin: 01/11/23 15:49 Dose: 25 ml Documented By: ACC Enoxaparin Sodium (Enoxaparin Inj 40 Mg/0.4 Ml Syr) 40 mg SQ Q12H [facility] Stop: 02/10/23 17:12 Last Admin: 01/13/23 05:30 Dose: 40 mg Documented By: TKShavonne Admin: 01/12/23 17:16 Dose: 40 mg Documented By: Admin: 01/12/23 05:51 Dose: 40 mg Documented By: Admin: 01/11/23 21:36 Dose: 40 mg Documented By: LBN Fluticasone Propionate (Fluticasone Propionate Na Spr 16 Gm Btl) 1 sprays NA QAM [facility] Stop: 02/11/23 08:59 Last Admin: 01/12/23 08:02 Dose: 1 sprays Documented By: RITCHIE Pantoprazole Sodium 40 mg/ (Syringe) 10 mls @ 5 mls/min IV BID [facility] Stop: 02/10/23 20:59 Last Admin: 01/12/23 20:29 Dose: 5 mls/min Documented By: Admin: 01/12/23 08:02 Dose: 5 mls/min Documented By: Admin: 01/11/23 21:47 Dose: 5 mls/min Documented By: PASTOR Famotidine 20 mg/ Syringe 5 mls @ 2.5 mls/min IV BID [facility] Stop: 02/10/23 20:59 Last Admin: 01/12/23 20:34 Dose: 2.5 mls/min Documented By: Admin: 01/12/23 08:08 Dose: 2.5 mls/min Documented By: Admin: 01/11/23 22:07 Dose: 2.5 mls/min Documented By: PASTOR Cefepime HCl 2,000 mg/ Syringe 20 mls @ 5 mls/min IV Q12H [facility]; Protocol Stop: 01/19/23 00:00 Last Admin: 01/12/23 23:31 Dose: 5 mls/min Documented By: Admin: 01/12/23 12:32 Dose: 5 mls/min Documented By: Admin: 01/11/23 23:46 Dose: 5 mls/min Documented By: PASTOR Insulin Aspart (Insulin Aspart Per Unit Charge) 0 units SC ACHS [facility] Stop: 02/10/23 16:29 Last Admin: 01/12/23 21:18 Dose: 2 units Documented By: SALO Co-signed By: LOLLY Admin: 01/12/23 17:15 Dose: 9 units Documented By: RITCHIE Co-signed By: MARIE Admin: 01/12/23 12:29 Dose: 10 units Documented By: RITCHIE Co-signed By: MARIE Admin: 01/12/23 08:25 Dose: 5 units Documented By: RITCHIE Co-signed By: ISABELLA Admin: 01/11/23 21:44 Dose: Not Given Documented By: Admin: 01/11/23 17:40 Dose: Not Given Documented By: YOLI Co-signed By: KATELYNN Insulin Glargine (Lantus Per Unit Charge) 17 units SQ BID [facility] Stop: 02/10/23 20:59 Last Admin: 01/12/23 21:18 Dose: 17 units Documented By: SALO Co-signed By: LOLLY Admin: 01/12/23 08:25 Dose: 17 units Documented By: RITCHIE Co-signed By: ISABELLA Admin: 01/11/23 21:47 Dose: 17 units Documented By: PASTOR Co-signed By: THIEN Levothyroxine Sodium (Levothyroxine Sodium 175 Mcg Tablet) 175 mcg PO DAILYBB [facility] Stop: 02/11/23 06:29 Last Admin: 01/13/23 05:30 Dose: 175 mcg Documented By: Admin: 01/12/23 05:52 Dose: 175 mcg Documented By: PASTOR Miscellaneous (Carbohydrates For Hypoglycemia ) 15 - 30 gm PO UD PRN PRN Reason: Hypoglycemia Protocol Stop: 02/10/23 14:41 Last Admin: 01/11/23 15:40 Dose: 30 gm Documented By: YOLI Discontinued Medications Acetaminophen (Acetaminophen 500 Mg Tab) 1,000 mg PO NOW STA Stop: 01/11/23 11:18 Last Admin: 01/11/23 11:41 Dose: 1,000 mg Documented By: YOLI Amlodipine Besylate (Amlodipine Besylate 5 Mg Tab) 2.5 mg PO QAM [facility] Stop: 02/11/23 08:59 Last Admin: 01/12/23 08:02 Dose: 2.5 mg Documented By: RITCHIE Sodium Chloride (Nss) 1,000 mls @ 125 mls/hr IV .Q8H [facility] Stop: 01/11/23 19:29 Last Infusion: 01/11/23 18:59 Dose: Infused Documented By: Infusion: 01/11/23 13:00 Dose: 0 mls/hr Documented By: Admin: 01/11/23 11:41 Dose: 125 mls/hr Documented By: YOLI Cefepime HCl (Maxipime) 2,000 mg in 20 mls @ 5 mls/min IV NOW STA; Protocol Stop: 01/11/23 11:30 Last Admin: 01/11/23 11:44 Dose: 5 mls/min Documented By: YOLI Doxycycline Hyclate 100 mg/ (Dextrose) 100 mls @ 50 mls/hr IV NOW STA Stop: 01/11/23 13:26 Last Infusion: 01/11/23 13:56 Dose: Infused Documented By: Admin: 01/11/23 11:53 Dose: 50 mls/hr Documented By: YOLI Sodium Chloride (Nss) 1,000 mls @ 999 mls/hr IV .Q1H1M ONE Stop: 01/11/23 13:20 Last Infusion: 01/11/23 14:12 Dose: 0 mls/hr Documented By: Admin: 01/11/23 12:59 Dose: 999 mls/hr Documented By: YOLI Sodium Chloride (Nss) 500 mls @ 999 mls/hr IV .Q31M ONE Stop: 01/11/23 12:50 Last Infusion: 01/11/23 13:41 Dose: Infused Documented By: Admin: 01/11/23 12:59 Dose: 999 mls/hr Documented By: YOLI Ondansetron HCl (Ondansetron Inj 2 Mg/Ml 2 Ml Vial) 4 mg IV NOW STA Stop: 01/11/23 11:18 Last Admin: 01/11/23 11:41 Dose: 4 mg Documented By: YOLI Pneumococcal 20-Valent Conj Vacc (Pneumococcal Vaccine (Pcv20) 20-Susan Conj-Dip Crm/Pf 0.5 Ml Syr) 0.5 ml IM .ONCE ONE Stop: 01/12/23 09:01 Last Admin: 01/12/23 08:08 Dose: Not Given Documented By: Imaging Data Radiologist's Impression: Chest X-Ray 01/11/23 11:17 XR chest 1V portable CLINICAL HISTORY: weakness COMPARISON STUDY: Chest CT March 10, 2020. Chest radiograph January 28, 2022. FINDINGS: There is no pneumothorax or pleural effusion. Moderate cardiomegaly is unchanged. There is no evidence for pulmonary edema. No consolidation to suggest pneumonia. IMPRESSION: No acute cardiopulmonary findings. Stable cardiomegaly. ACT 112: Negative or not required by law. Electronically signed by: Isra Kitchen M.D. 01/11/2023 1:00 PM Foot X-Ray 01/11/23 11:17 RIGHT FOOT 3 VIEWS CLINICAL HISTORY: Pressure ulcer on the heel. FINDINGS: 3 views of the right foot are obtained. Correlation is made with radiographs of the right calcaneus dated 08/01/2022. The skeletal structures are osteopenic. There is age indeterminant posterolateral deformity through the proximal shaft of the fifth proximal phalanx. No additional findings are suspicious for acute fracture. There is no bony erosion or periostitis. Mild osteoarthritic change is seen throughout the foot, greatest at the first metatarsophalangeal joint. Degenerative spurring is seen along the dorsal aspect of the tarsal bones. There is a small plantar calcaneal enthesophyte. There is diffuse soft tissue edema seen. The right lower extremity. An ulceration is seen along the plantar aspect of the hindfoot. Question small foreign bodies versus soft tissue calcifications in the heel. There is advanced atherosclerotic calcification of the regional arteries. IMPRESSION: 1. There is age indeterminate posttraumatic deformity of the fifth proximal phalanx. Acute to subacute fracture is are not excluded. Correlate clinically. 2. Diffuse soft tissue edema suggests cellulitis. 3. No bony erosion or periostitis is seen. 4. There are soft tissue calcifications versus radiodense foreign bodies identified in the heel. These are new from 08/01/2022. Correlate clinically. 5. A large ulceration is seen along the plantar aspect of the hindfoot. Electronically signed by: Chilango Vora M.D. 01/11/2023 1:01 PM Discharge Plan Visit Data Chief Complaint: Illness Stated Complaint: NAUSEA, VOMITING, DIZZINESS ED Provider: Lily Kerr Discharge Problem: Heel ulceration, Elevated lactic acid level, Pseudomonas infection Patient Disposition: Admitted As Inpatient Discharge Instructions Interventions: ED Discharge Assessment Last Done: 01/11/23 17:11 Discharge Problem: Heel ulceration Qualifiers: Laterality: right Non-pressure ulcer stage: with fat layer exposed Qualified Code(s): L97.412 - Non-pressure chronic ulcer of right heel and midfoot with fat layer exposed
[2023-01-11 12:12] LABS: Basophils # (auto) 0.06 K/uL (0.00-0.20); Basophils % (auto) 0.5 %; Eosinophils % (auto) 2.6 %; Hematocrit (blood only) 29.1 % (37.0-47.0); Hemoglobin 8.7 g/dl (12.0-16.0); Immature Granulocytes # (auto) 0.06 K/uL (0.01-0.20); Immature Granulocytes % (auto) 0.5 %; Lymphocytes # (auto) 3.72 K/uL (1.20-3.40); Lymphocytes % (auto) 31.9 %; Mean Corpuscular Hgb Conc 29.9 g/dL (32.0-36.0); Mean Corpuscular Volume 87.1 fL (80.0-100.0); Mean Platelet Volume 11.3 fL (9.4-12.4); Monocytes # (auto) 0.74 K/uL (0.11-0.59); Monocytes % (auto) 6.3 %; Neutrophils # (auto) 6.79 K/uL (1.40-6.50); Neutrophils % (auto) 58.2 %; Platelet Count 381 K/uL (130-400); RDW Coefficient of Variation 15.9 % (11.5-14.5); RDW Standard Deviation 50.6 fL (36.4-46.3); Red Blood Count 3.34 M/uL (4.20-5.40); White Blood Count 11.67 K/ul (4.8-10.8)
[2023-01-11] MEDS ORDERED: SODIUM CHLORIDE 0.9% 1,000 ML IV ONE (12:20)
[2023-01-11] MEDS ORDERED: SODIUM CHLORIDE 0.9% 500 ML IV ONE (12:20)
[2023-01-11 12:31] LABS: Albumin Globulin Ratio 0.7 (0.9-2); BUN Creatinine Ratio 11.1 (10-20); Bilirubin,Total 0.2 mg/dl (0.2-1.0); Creatinine Clr Calc Pharmacy 40.8 ml/min; Est GFR (African American) 32.4 ml/min; Est GFR (Non-African American) 27.9 ml/min; Globulin 4.3 gm/dl (2.5-4.0); Magnesium 1.7 mg/dl (1.7-2.4); Potassium 4.2 mmol/L (3.5-5.1); Total Protein 7.3 gm/dl (6.0-8.3)
[2023-01-11 12:46] LABS: Thyroid Stimulating Hormone 1.282 uIu/ml (0.300-4.500)
--- NOTE | 2023-01-11 13:01 | XRay Report ---
XR chest 1V portable CLINICAL HISTORY: weakness COMPARISON STUDY: Chest CT March 10, 2020. Chest radiograph January 28, 2022. FINDINGS: There is no pneumothorax or pleural effusion. Moderate cardiomegaly is unchanged. There is no evidence for pulmonary edema. No consolidation to suggest pneumonia. IMPRESSION: No acute cardiopulmonary findings. Stable cardiomegaly. ACT 112: Negative or not required by law. Electronically signed by: Isra Kitchen M.D. 01/11/2023 1:00 PM
--- NOTE | 2023-01-11 13:02 | XRay Report ---
RIGHT FOOT 3 VIEWS CLINICAL HISTORY: Pressure ulcer on the heel. FINDINGS: 3 views of the right foot are obtained. Correlation is made with radiographs of the right c alcaneus dated 08/01/2022. The skeletal structures are osteopenic. There is age indeterminant posterol ateral deformity through the proximal shaft of the fifth proximal phalanx. No additional findings are suspicious for acute fracture. There is no bony erosion or periostitis. Mild osteoarthritic change i s seen throughout the foot, greatest at the first metatarsophalangeal joint. Degenerative spurring is seen along the dorsal aspect of the tarsal bones. There is a small plantar calcaneal enthesophyte. T here is diffuse soft tissue edema seen. The right lower extremity. An ulceration is seen along the pl lucita aspect of the hindfoot. Question small foreign bodies versus soft tissue calcifications in the heel. There is advanced atherosclerotic calcification of the regional arteries. IMPRESSION: 1. There is age indeterminate posttraumatic deformity of the fifth proximal phalanx. Acute to subacut e fracture is are not excluded. Correlate clinically. 2. Diffuse soft tissue edema suggests cellulitis. 3. No bony erosion or periostitis is seen. 4. There are soft tissue calcifications versus radiodense foreign bodies identified in the heel. Thes e are new from 08/01/2022. Correlate clinically. 5. A large ulceration is seen along the plantar aspect of the hindfoot. Electronically signed by: Chilango Vora M.D. 01/11/2023 1:01 PM
--- NOTE | 2023-01-11 13:17 | History & Physical Report ---
Date of Service January 11, 2023 Assessment & Plan (1) Diabetic ulcer of right heel: Plan: 62 y/o female with a PMHx of uncontrolled DM, diabetic ulcers, CKD, anemia, GERD, HTN, HLD, hypothyroidism presented with vertigo, nausea, and vomiting admitted for management of diabetic foot ulcer. #Diabetic Ulcer with cellulitis #DM Last HbA1c 7.7. On metformin, insulin, dapagliflozin, dulaglutide. Will do SSI while inpatient. Has grown pseudomonas in the past. 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 Given cefepime and doxy in the ED. Will continue with cefepime for MSSA and pseudomonas coverage. Likely transition to oral abx pending cultures. f/u wound and blood cultures repeat HbA1c cefepime - transition to PO and narrow pending cultures #Anemia Baseline 9-10. 8.7 this admit. Continue to monitor. #Lactic Acidosis Lactate 2.9 on presentation. No other signs of sepsis. Fluid resuscitated with 1.5L. Lactate has normalized. #Hypertension Patient with elevated BP. Is on amlodipine 2.5 mg, Bumex 1 mg at home. Continue home meds #CHF Last ECHO 2018 - Grade I diastolic dysfunction, moderate LVH. #GERD On famotidine and omeprazole at home. Will do IV while inpatient #HLD Continue home atorvastatin #Hypothyroidism Continue home meds #Depression/Anxiety Continue home amitriptyline. Code status: conditional code - declines intubation for respiratory failure, acceptable in the setting cardiac arrest DVT ppx: Lovenox FENGI: CLD, advance as tolerated Dispo: Med/Surg (2) Hypertension: (3) Hypercholesteremia: (4) Anxiety: (5) Hypothyroidism: (6) Fibromyalgia: (7) Chronic diastolic CHF (congestive heart failure): (8) Chronic kidney disease, stage III (moderate): (9) Uncontrolled type 2 diabetes mellitus with hyperglycemia: (10) Morbid obesity with BMI of 50.0-59.9, adult: (11) GERD (gastroesophageal reflux disease): (12) Depression: (13) Anemia: (14) Cellulitis: (15) Dysphagia: History of Present Illness Primary Care Provider: Natali Langston, 62 y/o female with a PMHx of DM, diabetic ulcers, CKD, anemia, GERD, HTN, HLD, and hypothyroidism presented with 3-4 days of vertigo symptoms with subsequent nausea and vomiting. Last bout of emesis was 01/10. No blood in the vomit or stool. Having loose BMs as well. Having subjective fevers - no recorded elevated temperature. Does have a productive cough - white/foamy. In addition patient has been feeling generally unwell with some epigastric discomfort. No CP or SOB. No leg pain or foot pain. No sore throat. Patient does have an ulcer on her right foot. Has previously grown MSSA and pseudomonas. Last culture 01/04 with MSSA. Was recommended to start doxy, but with her GI symptoms she held off on picking up this medication. Pseudomonas previously treated with gentamicin ointment. Wound care is done daily. No concern that this has worsened. Patient does have a history of vertigo typically BPPV that worsens when rolling from one side to the other, which has been going on for awhile. Reportedly the patient also has dysphagia with solids for the last few weeks. Dysphagia with solids - GI consult In the ED Lactate 2.9 Leukocytosis 11.6. CXR clear. XR foot with ulcer and signs of cellulitis. Started on doxycycline and cefepime in the ED. Fluid resuscitated with 1.5L NS. Lactate improved to 1.9. Hypertensive in the ED. Asymptomatic. Has improved with nausea control. Allergies Allergy/AdvReac Type Severity Reaction Status Date / Time amoxicillin Allergy Intermediate hives Verified 01/11/23 13:21 dextromethorphan Allergy Intermediate Hives Verified 01/11/23 13:21 [From NyQuil] doxylamine [From NyQuil] Allergy Intermediate Hives Verified 01/11/23 13:21 latex Allergy Intermediate RASH Verified 01/11/23 13:21 Sulfa (Sulfonamide Allergy Intermediate RASH Verified 01/11/23 13:21 Antibiotics) clarithromycin AdvReac Intermediate HEART RACES Verified 01/11/23 13:21 Arnshane's multigrain bread Allergy Intermediate Hives Uncoded 01/11/23 13:21 Home Medications Medication Instructions Recorded Confirmed Type amitriptyline 50 mg tablet 100 mg PO HS 12/06/17 01/11/23 History metformin 1,000 mg tablet 1,000 mg PO BID 12/06/17 01/11/23 History omeprazole 20 mg tablet,delayed 20 mg PO QPM 12/06/17 01/11/23 History release fluticasone propionate 50 1 spray intranasal QAM 03/10/19 01/11/23 History mcg/actuation nasal spray,suspension levothyroxine 175 mcg tablet 175 mcg PO QAM 03/10/19 01/11/23 History (Synthroid) atorvastatin 80 mg tablet 80 mg PO HS 02/19/20 01/11/23 History famotidine 20 mg tablet (Pepcid) 20 mg PO BID 02/19/20 01/11/23 History loratadine 10 mg tablet 10 mg PO DAILY PRN Allergy Symptoms 01/19/21 01/11/23 History albuterol sulfate 90 mcg/actuation 1 - 2 puff inhalation QID PRN 06/20/21 01/11/23 History aerosol inhaler ASTHMA pen needle, diabetic 32 gauge x 06/20/21 12/27/22 History " (BD Ultra-Fine Siria Pen Needle) blood sugar diagnostic (FreeStyle 06/29/21 12/27/22 History Precision Perico Strips) flash glucose scanning reader 06/29/21 12/27/22 History (FreeStyle Davy 14 Day Macy) flash glucose sensor (FreeStyle 06/29/21 12/27/22 History Davy 14 Day Sensor kit) lancets 30 gauge (OneTouch Delica 06/29/21 12/27/22 History Lancets) insulin detemir U-100 100 unit/mL See Rx Instructions .Route .COMPLEX 01/28/22 01/11/23 History (3 mL) subcutaneous pen (Levemir FlexTouch U-100 Insulin) bumetanide 1 mg tablet 1 mg PO QAM 02/09/22 01/11/23 History cholecalciferol (vitamin D3) 50 50 mcg PO QAM 02/09/22 01/11/23 History mcg (2,000 unit) capsule insulin aspart U-100 100 unit/mL See Rx Instructions .Route 04/17/22 01/11/23 Rx (3 mL) subcutaneous pen (Novolog .COMPLEX #105 mL FlexPen U-100 Insulin aspart) dulaglutide 1.5 mg/0.5 mL 1.5 mg subcut .Weekly 07/25/22 01/11/23 History subcutaneous pen injector (Trulicity) dapagliflozin propanediol 5 mg 5 mg PO QAM #90 tabs 10/19/22 01/11/23 Rx tablet (Farxiga) amlodipine 2.5 mg tablet 2.5 mg PO QAM 01/11/23 01/11/23 History doxycycline hyclate 100 mg tablet 0 mg PO bid 01/11/23 01/11/23 History Past Med/Surg History Medical History History of anesthesia reaction woke up during shoulder arthroscopy Peritonsillar abscess recent admission @ [facility] 01/29/22 for this--per pt has finished all antibiotics for this, no further issues at this time Chronic kidney disease, stage III (moderate) SOB (shortness of breath) RBBB Hypoxia Hyperglycemia due to type 2 diabetes mellitus Pneumonia due to COVID-19 virus COVID-19 hx of in 2019--per pt was hospitalized for COVID--states no symptoms currently Bifascicular block Foot drop LEFT Chronic back pain Osteoarthritis Hx of irritable bowel syndrome Cataract Bilateral Umbilical hernia Hiatal hernia PTSD (post-traumatic stress disorder) History of diverticulitis Tear of medial meniscus of right knee, current Morbid obesity with BMI of 50.0-59.9, adult Diabetes mellitus with hyperglycemia, with long-term current use of insulin Neck pain Narrowing of C6-C7 with bone spurs. CAUSES NUMBNESS IN LEFT ARM GERD (gastroesophageal reflux disease) Depression Anxiety Hyperlipidemia Hypertension Asthma COLD WEATHER FLARES UP/DENIES RECENT FLARE UP/ALBUTEROL ONLY PRN History of migraine Hyperosmolar hyponatremia Fibromyalgia Hypothyroidism Surgical History History of repair of right rotator cuff History of repair of left rotator cuff History of repair of ACL L S/P rotator cuff repair History of arthroscopy of right shoulder History of dilatation and curettage History of repair of ACL R History of esophagogastroduodenoscopy (EGD) History of colonoscopy History of D&C Family History Grandfather Diabetes Mother Myocardial infarction Heart disease Tobacco abuse Hx of CABG Family/Other Family history of diabetes mellitus Brother Family history of diabetes mellitus Father Aortic aneurysm Grandmother (Paternal) Cerebral aneurysm Stroke Other Family history of colon cancer in mother Social History Smoking Status: Never smoker Second Hand Exposure: Yes; Do You Dip or Chew Tobacco: No; Hx Alcohol Use: No Hx Substance Use: No Preferred Language: Spanish Communication Ability: Effective Visual Impairment: No Limitations Spa Concierge Required: No Beliefs That Will Affect Care: None marital status: Current Living Situation: Alone Feels Safe at Home: Yes Safety Concerns: Feels Safe At This Time Assistive Devices: Walker Physical Exam 2 Physical Exam: Gen: well appearing female in NAD, appears disheveled HEENT: AT NC PERRL OP clear slightly dry mucous membranes CV: RRR no m/r/g clinically well perfused 2+ peripheral pulses, 1-2+ pitting edema BLE Resp: CTAB no wheezing no increased work of breathing, breathing comfortably on RA Abd: obese, soft, non-distended, slightly tender in the epigastric region otherwise non-tender, +BS, no organomegaly noted Skin: large ulcerated lesion on the heel of the right foot, no purulent discharge, no odor noted, no surrounding erythema MSK: no obvious deformities Neuro: alert and oriented Psych: appropriate mood and affect Results & Data Results & Data Vital Signs (Past 12 Hours) Vital Signs Temp Pulse Pulse Resp BP BP Pulse Ox 01/11/23 12:17 65 01/11/23 12:10 64 16 170/80 H 99 01/11/23 11:47 70 18 97 01/11/23 10:37 36.8 C 90 16 201/131 H 99 O2 Del Method 01/11/23 12:17 01/11/23 12:10 Room Air 01/11/23 11:47 Room Air 01/11/23 10:37 Room Air Laboratory Results 01/11/23 11:38 01/11/23 11:38 Diagnostic Findings Chest X-Ray 01/11/23 11:17 FINDINGS: There is no pneumothorax or pleural effusion. Moderate cardiomegaly is unchanged. There is no evidence for pulmonary edema. No consolidation to suggest pneumonia. IMPRESSION: No acute cardiopulmonary findings. Stable cardiomegaly. Foot X-Ray 01/11/23 11:17 FINDINGS: 3 views of the right foot are obtained. Correlation is made with radiographs of the right calcaneus dated 08/01/2022. The skeletal structures are osteopenic. There is age indeterminant posterolateral deformity through the proximal shaft of the fifth proximal phalanx. No additional findings are suspicious for acute fracture. There is no bony erosion or periostitis. Mild osteoarthritic change is seen throughout the foot, greatest at the first metatarsophalangeal joint. Degenerative spurring is seen along the dorsal aspect of the tarsal bones. There is a small plantar calcaneal enthesophyte. There is diffuse soft tissue edema seen. The right lower extremity. An ulceration is seen along the plantar aspect of the hindfoot. Question small foreign bodies versus soft tissue calcifications in the heel. There is advanced atherosclerotic calcification of the regional arteries. IMPRESSION: 1. There is age indeterminate posttraumatic deformity of the fifth proximal phalanx. Acute to subacute fracture is are not excluded. Correlate clinically. 2. Diffuse soft tissue edema suggests cellulitis. 3. No bony erosion or periostitis is seen. 4. There are soft tissue calcifications versus radiodense foreign bodies identified in the heel. These are new from 08/01/2022. Correlate clinically. 5. A large ulceration is seen along the plantar aspect of the hindfoot. Supervising Physician Co-Signing Physician Notes I personally saw and examined the patient. I verified all parson points and agree with resident physician Dr Jane Gore, with the following exceptions and/or additions: 62 year old female presents to the ER on advice of her home health nurse due to potentially worsening heel ulcer. Pt reports no fever or chills. She does not dysphagia over the last week and worsening epigastric pain and nausea over the last 2 weeks possibly related to when she was started on amlodipine. She reports a history of gastric ulcers. Initially told me her heel ulcer was slowly getting better but then reported increased pain and swelling over the last 2 days with increased discharge. She was supposed to start doxycycline but because of her stomach issues she has not yet started this. O/E A&Ox3, HS RRR, no murmurs, Chest CTAB, Abdo epigastric pain without guarding or rebound tenderness, Right heel ulcer with mild swelling and erythema just surrounding outside without warmth. A/P Cellulitis with diabetic heel ulcer - recently grown staph aureus resistant to clindamycin and erythromycin. Will cover this and pseudomonas with cefepime IV - likely can switch to orals once GI symptoms improve. She is not septic. Nausea/dysphagia - epigastric pain on exam, switch famotidine/pantoprazole to IV and consult GI given anemia and dysphagia with epigastric pain on exam Resident Activity Tracking Resident Involvement: Resident Care Provided Care Provided: Adult Hospital Medicine (2) Hypertension Hypertension type: essential hypertension Qualified Code(s): I10 - Essential (primary) hypertension (15) Dysphagia Dysphagia type: unspecified Qualified Code(s): R13.10 - Dysphagia, unspecified
[2023-01-11 13:58] LABS: Influenza A virus by PCR Negative (Neg); Influenza B virus by PCR Negative (Neg); RSV by PCR Negative (Neg); SARS CoV2 RNA(COVID-19) Ceph NEGATIVE (Negative)
[2023-01-11] MEDS ORDERED: DEXTROSE 50% 50 ML SYRINGE IV PRN (14:42)
[2023-01-11] MEDS ORDERED: GLUCOSE 10 TAB/TUBE PO PRN (14:42)
[2023-01-11] MEDS ORDERED: CARBOHYDRATES FOR HYPOGLYCEMIA PO PRN (14:42)
[2023-01-11] MEDS ORDERED: GLUCAGON FOR INJ 1 MG VIAL SQ PRN (14:42)
[2023-01-11] MEDS ORDERED: GLUCOSE 40% GEL 15 GM TUBE PO PRN (14:42)
--- NOTE | 2023-01-11 16:43 | Electrocardiogram Report ---
Test Reason : Blood Pressure : / mmHG Vent. Rate : 069 BPM Atrial Rate : 069 BPM P-R Int : 158 ms QRS Dur : 148 ms QT Int : 456 ms P-R-T Axes : 087 -59 069 degrees QTc Int : 488 ms Normal sinus rhythm Right bundle branch block Left anterior fascicular block Bifascicular block Minimal voltage criteria for LVH, may be normal variant Abnormal ECG When compared with ECG of 28-JAN-2022 23:08, No significant change was found Confirmed by Carter Milian ([id number]) on 01/11/2023 4:43:03 PM Referred By: Confirmed By:Mina Milian
[2023-01-11] MEDS ORDERED: POLYETHYLENE (MIRALAX) 17 GM PACK PO PRN (17:13)
[2023-01-11] MEDS ORDERED: ONDANSETRON INJ 2 MG/ML 2 ML VIAL IV PRN (17:13)
[2023-01-11] MEDS ORDERED: ACETAMINOPHEN 325 MG TAB PO PRN (17:13)
[2023-01-11] MEDS: INSULIN ASPART PER UNIT CHARGE SC SCH ×2 (17:40→21:44)
[2023-01-11] MEDS: AMITRIPTYLINE HCL 100 MG TAB PO SCH (21:36)
[2023-01-11] MEDS: ENOXAPARIN INJ 40 MG/0.4 ML SYR SQ SCH (21:36)
[2023-01-11] MEDS: ATORVASTATIN 40 MG TAB PO SCH (21:37)
[2023-01-11] MEDS: PANTOprazole 40 MG in SYRINGE 0 ML IV SCH (21:47)
[2023-01-11] MEDS: LANTUS PER UNIT CHARGE SQ SCH (21:47)
[2023-01-11] MEDS: FAMOTIDINE 20 MG in SYRINGE 3 ML IV SCH (22:07)
[2023-01-11 22:20] LABS: Appearance Urine Clear (Clear); Bacteria Urine Automated 1+ (Negative); Bilirubin Urine Negative (Negative); Blood Urine Trace (Negative); Color Urine Yellow; Epithelial Cell Urine Auto >30 /lpf (0-5); Glucose Urine UA 3+ (Negative); Ketones Urine Negative (Negative); Leukocyte Esterase Urine Negative (Negative); Nitrite Urine Negative (Negative); Protein Urine 3+ (Negative); RBC Urine Automated 0-4 /hpf (0-4); Specific Gravity Urine 1.013 (1.000-1.030); Urobilinogen Urine Negative (Negative); pH Urine 6.5 (4.5-7.5)
[2023-01-11] MEDS: CEFEPIME 2,000 MG in SYRINGE 0 ML IV SCH (23:46)
[2023-01-12] MEDS: ENOXAPARIN INJ 40 MG/0.4 ML SYR SQ SCH ×2 (05:51→17:16)
[2023-01-12] MEDS: LEVOTHYROXINE SODIUM 175 MCG TABLET PO SCH (05:52)
--- NOTE | 2023-01-12 07:49 | Hospitalist Progress Note ---
Date of Service January 12, 2023 Assessment & Plan (1) Diabetic ulcer of right heel: Plan: 62 y/o female with a PMHx of uncontrolled DM, diabetic neuropathy and foot ulcers, CKD stage 3, anemia, GERD, HTN, HLD, hypothyroidism and BPPV presented with dehydration from nausea/vomiting and diarrhea (resolved) and increased redness and pain of right sided diabetic foot ulcer. Had been prescribed oral doxy by wound clinic but unable to keep them down and never actually took any. RLE diabetic foot ulcer with cellulitis. Last wound cultures 11/21 pseudomonas mckeon-sensitive, 01/04 MSSA reviewed arterial duplex 07/12/22 - TBIs normal and adequate for healing, ABIs not obtainable r/t incompressible vessels, <50% stenosis R EIA Hypoalbuminemia - alb 3.0 affects wound healing - nutrition Currently has HH but was working on being placed at center care for rehab to improve wound healing -continue cefepime. WBC 11-->10 and nausea/vomiting resolved -wound nurse consulted and evaluated -heel offloading, PT/OT eval -check ESR and CRP, consider further imaging if concern for osteomyelitis R foot prox phalanx fracture age indeterminate - seen on plain film of foot. Not tender no deformity may not be acute. No specific treatment. Not near wound. (2) PERLITA (acute kidney injury): Plan: #PERLITA on CKD 3 (baseline Cr 1.2-1.3) - prerenal injury related to dehydration from N/V/D -1.5L crystalloid given at admission -Lactate elevation due to volume depletion resolved. Minimal metabolic acidosis resolved on 01/12 BMP -lisinopril previously stopped by outpatient binding folder machine for PERLITA -BMP reviewed Cr unchanged at 1.82 -AM BMP, avoid nephrotoxin, continue holding PETER (3) Uncontrolled type 2 diabetes mellitus with hyperglycemia: Plan: Last HbA1c 7.7. On metformin, insulin, dapagliflozin, dulaglutide. Will do SSI while inpatient. BG at goal 01/12 (4) Hypertension: Plan: Hypertension - BP elevated above goal 01/12 amlodipine 2.5 mg, Bumex 1 mg at home -increase amlodipine to 5 mg daily (5) Hypercholesteremia: Plan: continue statin (6) Anxiety: Plan: continue TCA for depression/anxiety (7) Hypothyroidism: Plan: contninue levothyroxine (8) Chronic diastolic CHF (congestive heart failure): Plan: Chronic diastolic HF Last ECHO 2018 - Grade I diastolic dysfunction, moderate LVH -euvolemic, work on BP control EKG with bifascicular block, unchanged from 01/31 (9) Chronic kidney disease, stage III (moderate): (10) Morbid obesity with BMI of 50.0-59.9, adult: Plan: BMI 49, increased risk of nonhealing foot ulcer (11) GERD (gastroesophageal reflux disease): Plan: Complaint of dysphagia solid foods 2 weeks, GERD - PPI for now. eating well today (12) Anemia: Plan: Baseline Hgb 9-10. 8.7 this admit. Continue to monitor. colonoscopy 02/13/22 - diverticulosis, rectal polyp, int hemorrhoids (13) Depression: Plan follow up - urine culture 01/11 blood cultures 01/11 Code status: conditional code - declines intubation for respiratory failure, acceptable in the setting cardiac arrest DVT ppx: Lovenox Dispo: lives at home, home health, prefers SNF to try to heal foot ulcer Admission and Anticipated Discharge Date Admission Date: January 11, 2023 Subjective nausea vomiting and diarrhea have resolved. Eating lunch pretty avidly. c/o vertigo attacks but only when she is lying down and rolls from R side to L side. No vertigo right now. Says vertigo was not related to the N/V that brought her in. Right foot is red and painful. Not usually painful, mostly insensate. No recall of injuring it or falling. Physical Exam Physical Exam: PHYSICAL EXAMINATION Last 24h vital signs reviewed, see documentation in flowsheet General: comfortable appearing, no distress, sitting on EOB eating well HEENT: Normocephalic, atraumatic, pupils round and equal, sclerae anicteric, no conjunctival injection, moist mucus membranes Lungs: Normal respiratory effort. Clear to auscultation bilaterally. No RRW Heart: Regular rate and rhythm, no murmurs. No JVD Abdomen: Soft, nontender, nondistended. Bowel sounds present. Extremities: Warm, dry, well-perfused. No extremity edema. RLE dressed. No pain on palpation of R forefoot and no deformity Neuro: Alert and oriented x 4, face symmetric, moves 4 extremities well Psych: Normal affect and behavior Results & Data Results & Data Vital Signs (Past 12 Hours) Vital Signs Temp Pulse Resp BP Pulse Ox O2 Del Method 01/11/23 22:13 36.7 C 71 16 148/81 H 99 Room Air PG Care Time/CCT Total # of Minutes Spent Total Time Spent with Patient: Total time spent is greater than 50% in coordination of care (as documented) at patient's floor/unit and/or counseling patient: Coding Level of Care Code 03338 SUB INP/OBS CARE 2/35MIN Diagnoses Diabetic ulcer of right heel E11.621; L97.419 PERLITA (acute kidney injury) N17.9 Uncontrolled type 2 diabetes mellitus with hyperglycemia E11.65 Essential hypertension I10 Hypertension type: essential hypertension Hypercholesteremia E78.00 Anxiety F41.9 Hypothyroidism E03.9 Chronic diastolic CHF (congestive heart failure) I50.32 Chronic kidney disease, stage III (moderate) N18.30 Morbid obesity with BMI of 50.0-59.9, adult E66.01; Z68.43 GERD (gastroesophageal reflux disease) K21.9 Anemia D64.9 Depression F32.9 (4) Hypertension Hypertension type: essential hypertension Qualified Code(s): I10 - Essential (primary) hypertension
[2023-01-12 07:50] LABS: Basophils # (auto) 0.05 K/uL (0.00-0.20); Basophils % (auto) 0.5 %; Eosinophils # (auto) 0.31 K/uL (0.00-0.50); Hemoglobin 7.9 g/dl (12.0-16.0); Immature Granulocytes # (auto) 0.04 K/uL (0.01-0.20); Immature Granulocytes % (auto) 0.4 %; Lymphocytes # (auto) 4.08 K/uL (1.20-3.40); Lymphocytes % (auto) 39.9 %; Mean Corpuscular Hemoglobin 25.6 pg (25.0-34.0); Mean Corpuscular Hgb Conc 29.3 g/dL (32.0-36.0); Mean Corpuscular Volume 87.4 fL (80.0-100.0); Mean Platelet Volume 10.9 fL (9.4-12.4); Monocytes # (auto) 0.64 K/uL (0.11-0.59); Monocytes % (auto) 6.3 %; Neutrophils % (auto) 49.9 %; Platelet Count 345 K/uL (130-400); RDW Coefficient of Variation 16.3 % (11.5-14.5); RDW Standard Deviation 51.9 fL (36.4-46.3); Red Blood Count 3.09 M/uL (4.20-5.40); White Blood Count 10.22 K/ul (4.8-10.8)
[2023-01-12 08:01] LABS: BUN Creatinine Ratio 10.4 (10-20); Calcium 8.5 mg/dl (8.6-10.3); Creatinine Clr Calc Pharmacy 39.9 ml/min; Est GFR (African American) 33.9 ml/min; Est GFR (Non-African American) 29.2 ml/min; Potassium 4.5 mmol/L (3.5-5.1)
[2023-01-12] MEDS: BUMETANIDE 1 MG TAB PO SCH (08:01)
[2023-01-12] MEDS: PANTOprazole 40 MG in SYRINGE 0 ML IV SCH ×2 (08:02→20:29)
[2023-01-12] MEDS: FLUTICASONE PROPIONATE NA SPR 16 GM BTL SCH (08:02)
[2023-01-12] MEDS: FAMOTIDINE 20 MG in SYRINGE 3 ML IV SCH ×2 (08:08→20:34)
[2023-01-12] MEDS: INSULIN ASPART PER UNIT CHARGE SC SCH ×4 (08:25→21:18)
[2023-01-12] MEDS: LANTUS PER UNIT CHARGE SQ SCH ×2 (08:25→21:18)
[2023-01-12 08:30] LABS: RBC Morphology Unremarkable
[2023-01-12] MEDS ORDERED: PNEUMOCOCCAL VACCINE (PCV20) 20-VAL CONJ-DIP CRM/PF 0.5 ML SYR IM ONE (09:00)
[2023-01-12] MEDS ORDERED: amLODIPine BESYLATE 5 MG TAB PO SCH (09:00)
[2023-01-12 09:06] LABS: Estimated Average Glucose 209 mg/dl; Hemoglobin A1C 8.9 % (4.5-5.6)
--- NOTE | 2023-01-12 11:08 | Gastrointestinal Consultation ---
Date of Consultation January 12, 2023 Assessment & Plan (1) Dysphagia: Patient notes in hindsight intermittent, infrequent issues with swallowing breads/cakes over the past several months. She takes a PPI at home and has no ongoing GERD symptoms at present. She is not presently NPO. Continue safe swallowing strategies and avoid the particular trigger foods that worsen her symptoms. She can consider transitioning to Protonix 40 mg BID for now and on discharge. Our clinic will contact her to arrange an outpatient EGD for further evaluation. Supervising Physician Co-Signing Physician Notes I saw the patient and agree with the findings as documented by KAVIN Muñoz History of Present Illness Reason for Consultation: Dysphagia Attending Physician: yLnnette Mahoney MD History of Present Illness Patient is a 62 yo female with PMH DM2, heart block, hypothyroidism, HLD, HTN, CHF, CKD3, obesity, metabolic syndrome, peritonsillar abscess, GERD, osteoarthritis, & non-healing foot wound. She is hospitalized for issues with her diabetic foot ulcer & PERLITA, but GI has been consulted for dysphagia. Patient notes she is not currently NPO. She notes that she initially reported that she has had 2 weeks of intermittent dysphagia, but upon reflection recognizes that for several months she has struggled with intermittent solid food dysphagia particularly with breads. She notes that it is unpredictable an happens less than once per week on average. She has developed strategies to cope with this. She notes a distant history of an EGD long ago but does not recall the circumstances of this. She takes Omeprazole 20 mg daily. She notes this has controlled her reflux & heartburn symptoms well. She denies tobacco use at present. No pertinent GI family history. She denies liquid dysphagia. She notes no other issues at present. Allergies Allergy/AdvReac Type Severity Reaction Status Date / Time amoxicillin Allergy Intermediate hives Verified 01/11/23 13:21 dextromethorphan Allergy Intermediate Hives Verified 01/11/23 13:21 [From NyQuil] doxylamine [From NyQuil] Allergy Intermediate Hives Verified 01/11/23 13:21 latex Allergy Intermediate RASH Verified 01/11/23 13:21 Sulfa (Sulfonamide Allergy Intermediate RASH Verified 01/11/23 13:21 Antibiotics) clarithromycin AdvReac Intermediate HEART RACES Verified 01/11/23 13:21 Arnshane's multigrain bread Allergy Intermediate Hives Uncoded 01/11/23 13:21 Home Medications Medication Instructions Recorded Confirmed Type amitriptyline 50 mg tablet 100 mg PO HS 12/06/17 01/11/23 History metformin 1,000 mg tablet 1,000 mg PO BID 12/06/17 01/11/23 History omeprazole 20 mg tablet,delayed 20 mg PO QPM 12/06/17 01/11/23 History release fluticasone propionate 50 1 spray intranasal QAM 03/10/19 01/11/23 History mcg/actuation nasal spray,suspension levothyroxine 175 mcg tablet 175 mcg PO QAM 03/10/19 01/11/23 History (Synthroid) atorvastatin 80 mg tablet 80 mg PO HS 02/19/20 01/11/23 History famotidine 20 mg tablet (Pepcid) 20 mg PO BID 02/19/20 01/11/23 History loratadine 10 mg tablet 10 mg PO DAILY PRN Allergy Symptoms 01/19/21 01/11/23 History albuterol sulfate 90 mcg/actuation 1 - 2 puff inhalation QID PRN 06/20/21 01/11/23 History aerosol inhaler ASTHMA pen needle, diabetic 32 gauge x 06/20/21 12/27/22 History 5/32" (BD Ultra-Fine Siria Pen Needle) blood sugar diagnostic (FreeStyle 06/29/21 12/27/22 History Precision Perico Strips) flash glucose scanning reader 06/29/21 12/27/22 History (FreeStyle Davy 14 Day [place]) flash glucose sensor (FreeStyle 06/29/21 12/27/22 History Davy 14 Day Sensor kit) lancets 30 gauge (OneTouch Delica 06/29/21 12/27/22 History Lancets) insulin detemir U-100 100 unit/mL See Rx Instructions .Route .COMPLEX 01/28/22 01/11/23 History (3 mL) subcutaneous pen (Levemir FlexTouch U-100 Insulin) bumetanide 1 mg tablet 1 mg PO QAM 02/09/22 01/11/23 History cholecalciferol (vitamin D3) 50 50 mcg PO QAM 02/09/22 01/11/23 History mcg (2,000 unit) capsule insulin aspart U-100 100 unit/mL See Rx Instructions .Route 04/17/22 01/11/23 Rx (3 mL) subcutaneous pen (Novolog .COMPLEX #105 mL FlexPen U-100 Insulin aspart) dulaglutide 1.5 mg/0.5 mL 1.5 mg subcut .Weekly 07/25/22 01/11/23 History subcutaneous pen injector (Trulicity) dapagliflozin propanediol 5 mg 5 mg PO QAM #90 tabs 10/19/22 01/11/23 Rx tablet (Farxiga) amlodipine 2.5 mg tablet 2.5 mg PO QAM 01/11/23 01/11/23 History doxycycline hyclate 100 mg tablet 0 mg PO bid 01/11/23 01/11/23 History Patient History Medical History History of anesthesia reaction woke up during shoulder arthroscopy Peritonsillar abscess recent admission @ [facility] 01/29/22 for this--per pt has finished all antibiotics for this, no further issues at this time Chronic kidney disease, stage III (moderate) SOB (shortness of breath) RBBB Hypoxia Hyperglycemia due to type 2 diabetes mellitus Pneumonia due to COVID-19 virus COVID-19 hx of in 2019--per pt was hospitalized for COVID--states no symptoms currently Bifascicular block Foot drop LEFT Chronic back pain Osteoarthritis Hx of irritable bowel syndrome Cataract Bilateral Umbilical hernia Hiatal hernia PTSD (post-traumatic stress disorder) History of diverticulitis Tear of medial meniscus of right knee, current Morbid obesity with BMI of 50.0-59.9, adult Diabetes mellitus with hyperglycemia, with long-term current use of insulin Neck pain Narrowing of C6-C7 with bone spurs. CAUSES NUMBNESS IN LEFT ARM GERD (gastroesophageal reflux disease) Depression Anxiety Hyperlipidemia Hypertension Asthma COLD WEATHER FLARES UP/DENIES RECENT FLARE UP/ALBUTEROL ONLY PRN History of migraine Hyperosmolar hyponatremia Fibromyalgia Hypothyroidism Surgical History History of repair of right rotator cuff History of repair of left rotator cuff History of repair of ACL L S/P rotator cuff repair History of arthroscopy of right shoulder History of dilatation and curettage History of repair of ACL R History of esophagogastroduodenoscopy (EGD) History of colonoscopy History of D&C Family History Grandfather Diabetes Mother Myocardial infarction Heart disease Tobacco abuse Hx of CABG Family/Other Family history of diabetes mellitus Brother Family history of diabetes mellitus Father Aortic aneurysm Grandmother (Paternal) Cerebral aneurysm Stroke Other Family history of colon cancer in mother Social History Smoking Status: Never smoker Second Hand Exposure: Yes; Do You Dip or Chew Tobacco: No; Hx Alcohol Use: No Hx Substance Use: No Preferred Language: Malagasy Communication Ability: Effective Visual Impairment: No Limitations Manager Call Required: No Beliefs That Will Affect Care: None marital status: Current Living Situation: Alone Feels Safe at Home: Yes Safety Concerns: Feels Safe At This Time Assistive Devices: Walker Review of Systems Constitutional: no fever and no chills Gastrointestinal: + dysphagia (intermittent) Psychiatric: no problem reported Physical Exam Constitutional: well developed Respiratory: normal respiratory effort Gastrointestinal (Abdomen): Inspection/Auscultation: abdomen normal to inspection Musculoskeletal: Head/Neck/Chest: normocephalic Psychiatric: Orientation: alert and oriented x 3 Results & Data Vital Signs (Past 12 Hours) Vital Signs Temp Pulse Resp BP Pulse Ox O2 Del Method 01/12/23 08:43 36.8 C 65 16 146/75 H 100 Room Air 01/12/23 08:00 Room Air PG Care Time/CCT Total # of Minutes Spent Total Time Spent with Patient: Total time spent is greater than 50% in coordination of care (as documented) at patient's floor/unit and/or counseling patient: Coding Level of Care Code 55856 IN/OBS CONSULT LVL 4,60M Diagnoses Dysphagia, unspecified type R13.10 Dysphagia type: unspecified (1) Dysphagia Dysphagia type: unspecified Qualified Code(s): R13.10 - Dysphagia, unspecified
--- NOTE | 2023-01-12 11:42 | Billing Data ---
Date of Service January 11, 2023 Coding Level of Care Code 49723 INT INP/OBS CARE
[2023-01-12] MEDS: CEFEPIME 2,000 MG in SYRINGE 0 ML IV SCH ×2 (12:32→23:31)
[2023-01-12] MEDS: ATORVASTATIN 40 MG TAB PO SCH (20:29)
[2023-01-12] MEDS: AMITRIPTYLINE HCL 100 MG TAB PO SCH (20:30)
[2023-01-13] MEDS: ENOXAPARIN INJ 40 MG/0.4 ML SYR SQ SCH ×2 (05:30→16:46)
[2023-01-13] MEDS: LEVOTHYROXINE SODIUM 175 MCG TABLET PO SCH (05:30)
[2023-01-13 07:43] LABS: Hematocrit (blood only) 26.6 % (37.0-47.0); Hemoglobin 7.9 g/dl (12.0-16.0); Mean Corpuscular Hemoglobin 25.8 pg (25.0-34.0); Mean Corpuscular Hgb Conc 29.7 g/dL (32.0-36.0); Mean Corpuscular Volume 86.9 fL (80.0-100.0); Platelet Count 343 K/uL (130-400); RDW Coefficient of Variation 16.1 % (11.5-14.5); RDW Standard Deviation 51.2 fL (36.4-46.3); Red Blood Count 3.06 M/uL (4.20-5.40); White Blood Count 10.29 K/ul (4.8-10.8)
[2023-01-13 07:52] LABS: Basophils # (auto) 0.05 K/uL (0.00-0.20); Basophils % (auto) 0.5 %; Eosinophils % (auto) 2.9 %; Immature Granulocytes # (auto) 0.07 K/uL (0.01-0.20); Immature Granulocytes % (auto) 0.7 %; Lymphocytes # (auto) 3.93 K/uL (1.20-3.40); Lymphocytes % (auto) 38.2 %; Monocytes # (auto) 0.62 K/uL (0.11-0.59); Neutrophils # (auto) 5.32 K/uL (1.40-6.50); Neutrophils % (auto) 51.7 %; Polychromasia 1+
[2023-01-13 08:05] LABS: BUN Creatinine Ratio 11.2 (10-20); C Reactive Protein 1.01 mg/dl (0-0.5); Calcium 8.7 mg/dl (8.6-10.3); Est GFR (Non-African American) 26.7 ml/min; Potassium 4.6 mmol/L (3.5-5.1)
[2023-01-13] MEDS: BUMETANIDE 1 MG TAB PO SCH (08:24)
[2023-01-13] MEDS: amLODIPine BESYLATE 5 MG TAB PO SCH (08:24)
[2023-01-13] MEDS: FLUTICASONE PROPIONATE NA SPR 16 GM BTL SCH (08:25)
[2023-01-13] MEDS: PANTOprazole 40 MG in SYRINGE 0 ML IV SCH (08:25)
[2023-01-13] MEDS: INSULIN ASPART PER UNIT CHARGE SC SCH ×4 (08:27→21:02)
[2023-01-13] MEDS: LANTUS PER UNIT CHARGE SQ SCH ×2 (08:27→21:01)
[2023-01-13] MEDS: FAMOTIDINE 20 MG in SYRINGE 3 ML IV SCH ×2 (08:30→21:01)
[2023-01-13] MEDS: CEFEPIME 2,000 MG in SYRINGE 0 ML IV SCH (13:18)
--- NOTE | 2023-01-13 16:00 | Hospitalist Progress Note ---
Date of Service January 13, 2023 Assessment & Plan (1) Diabetic ulcer of right heel: Plan: 62 y/o female with a PMHx of uncontrolled DM, diabetic neuropathy and foot ulcers, CKD stage 3, anemia, GERD, HTN, HLD, hypothyroidism and BPPV presented with dehydration from nausea/vomiting and diarrhea (resolved) and increased redness and pain of right sided diabetic foot ulcer. Had been prescribed oral doxy by wound clinic but unable to keep them down and never actually took any. RLE diabetic foot ulcer with cellulitis. Last wound cultures 11/21 pseudomonas mckeon-sensitive, 01/04 MSSA reviewed arterial duplex 07/12/22 - TBIs normal and adequate for healing, ABIs not obtainable r/t incompressible vessels, <50% stenosis R EIA Hypoalbuminemia - alb 3.0 affects wound healing - nutrition Currently has HH but was [facility] to improve wound healing -continue cefepime. WBC 11-->10 and nausea/vomiting resolved -wound nurse consulted and evaluated -heel offloading, PT/OT eval -check ESR and CRP --> ESR 101 severely elevated (however reviewed old records and is constantly >90 for unclear reason), CRP 1. Examined R heel wound 01/13 surrounding cellulitis improved but wound continues to have significant amount of greenish yellow smelly drainage. The wound is relatively shallow and covered with pink granulation tissue, I think the risk of underlying OM is low R foot prox phalanx fracture age indeterminate - seen on plain film of foot. Not tender no deformity may not be acute. No specific treatment. Not near wound. (2) PERLITA (acute kidney injury): Plan: #PERLITA on CKD 3 (baseline Cr 1.2-1.3) - prerenal injury related to dehydration from N/V/D -1.5L crystalloid given at admission -Lactate elevation due to volume depletion resolved. Minimal metabolic acidosis resolved on 01/12 BMP -lisinopril previously stopped by outpatient broadcast operations engineer for PERLITA -BMP reviewed Cr unchanged at 1.9 -AM BMP, avoid nephrotoxin, continue holding PETER (3) Uncontrolled type 2 diabetes mellitus with hyperglycemia: Plan: Last HbA1c 7.7. On metformin, insulin, dapagliflozin, dulaglutide. Will do SSI while inpatient. BG at goal 01/13 (4) Hypertension: Plan: Hypertension - BP elevated above goal 01/12, 01/13 amlodipine 2.5 mg, Bumex 1 mg at home -increased amlodipine to 5 mg daily (5) Hypercholesteremia: Plan: continue statin (6) Anxiety: Plan: continue TCA for depression/anxiety (7) Hypothyroidism: Plan: contninue levothyroxine (8) Chronic diastolic CHF (congestive heart failure): Plan: Chronic diastolic HF Last ECHO 2018 - Grade I diastolic dysfunction, moderate LVH -euvolemic, work on BP control EKG with bifascicular block, unchanged from 01/31 (9) Chronic kidney disease, stage III (moderate): (10) Morbid obesity with BMI of 50.0-59.9, adult: Plan: BMI 49, increased risk of nonhealing foot ulcer (11) GERD (gastroesophageal reflux disease): Plan: Complaint of dysphagia solid foods 2 weeks, Gi consulted - recommended outpatient EGD and clinic will contact to schedule, increase PPI to bid (12) Anemia: Plan: Baseline Hgb 9-10. 8.7 this admit. Continue to monitor. colonoscopy 02/13/22 - diverticulosis, rectal polyp, int hemorrhoids (13) Depression: Plan follow up - urine culture 01/11 = lactobacillus blood cultures 01/11 - NGTD Code status: conditional code - declines intubation for respiratory failure, acceptable in the setting cardiac arrest DVT ppx: Lovenox Dispo: lives at home, home health, prefers SNF to try to heal foot ulcer Admission and Anticipated Discharge Date Admission Date: January 11, 2023 Subjective right foot pain unchanged. says she has fibromyalgia, no gout, no IBD but has IBS, describes waterbrash then related emesis, foot ulcer started in June Physical Exam Physical Exam: PHYSICAL EXAMINATION Last 24h vital signs reviewed, see documentation in flowsheet General: comfortable appearing, no distress, sitting on EOB eating lunch without difficulty HEENT: Normocephalic, atraumatic, pupils round and equal, sclerae anicteric, no conjunctival injection, moist mucus membranes Lungs: Normal respiratory effort. Clear to auscultation bilaterally. No RRW Heart: Regular rate and rhythm, no murmurs. No JVD Abdomen: Soft, nontender, nondistended. Bowel sounds present. Extremities: Warm, dry, well-perfused. No extremity edema. RLE examined - see below Neuro: Alert and oriented x 4, face symmetric, moves 4 extremities well Psych: Normal affect and behavior Results & Data Results & Data Vital Signs (Past 12 Hours) Vital Signs Temp Pulse Resp BP Pulse Ox O2 Del Method 01/13/23 14:42 36.7 C 66 16 178/80 H 97 Room Air 01/13/23 09:56 Room Air 01/13/23 08:37 36.3 C L 60 16 176/97 H 98 Room Air PG Care Time/CCT Total # of Minutes Spent Total Time Spent with Patient: Total time spent is greater than 50% in coordination of care (as documented) at patient's floor/unit and/or counseling patient: Coding Level of Care Code 90395 SUB INP/OBS CARE 2/35MIN Diagnoses Diabetic ulcer of right heel E11.621; L97.419 PERLITA (acute kidney injury) N17.9 Uncontrolled type 2 diabetes mellitus with hyperglycemia E11.65 Essential hypertension I10 Hypertension type: essential hypertension Hypercholesteremia E78.00 Anxiety F41.9 Hypothyroidism E03.9 Chronic diastolic CHF (congestive heart failure) I50.32 Chronic kidney disease, stage III (moderate) N18.30 Morbid obesity with BMI of 50.0-59.9, adult E66.01; Z68.43 GERD (gastroesophageal reflux disease) K21.9 Anemia D64.9 Depression F32.9 (4) Hypertension Hypertension type: essential hypertension Qualified Code(s): I10 - Essential (primary) hypertension
[2023-01-13] MEDS: PANTOprazole 40 MG TAB PO SCH (20:54)
[2023-01-13] MEDS: AMITRIPTYLINE HCL 100 MG TAB PO SCH (20:54)
[2023-01-13] MEDS: ATORVASTATIN 40 MG TAB PO SCH (20:54)
[2023-01-14] MEDS: CEFEPIME 2,000 MG in SYRINGE 0 ML IV SCH (00:54)
[2023-01-14] MEDS: ENOXAPARIN INJ 40 MG/0.4 ML SYR SQ SCH ×2 (06:05→16:44)
[2023-01-14] MEDS: LEVOTHYROXINE SODIUM 175 MCG TABLET PO SCH (06:06)
[2023-01-14 07:01] LABS: Basophils # (auto) 0.05 K/uL (0.00-0.20); Basophils % (auto) 0.5 %; Eosinophils # (auto) 0.25 K/uL (0.00-0.50); Eosinophils % (auto) 2.6 %; Hematocrit (blood only) 24.4 % (37.0-47.0); Hemoglobin 7.5 g/dl (12.0-16.0); Immature Granulocytes # (auto) 0.04 K/uL (0.01-0.20); Immature Granulocytes % (auto) 0.4 %; Lymphocytes # (auto) 3.57 K/uL (1.20-3.40); Lymphocytes % (auto) 37.4 %; Mean Corpuscular Hgb Conc 30.7 g/dL (32.0-36.0); Mean Corpuscular Volume 84.7 fL (80.0-100.0); Mean Platelet Volume 11.1 fL (9.4-12.4); Monocytes % (auto) 6.3 %; Neutrophils # (auto) 5.04 K/uL (1.40-6.50); Neutrophils % (auto) 52.8 %; Platelet Count 337 K/uL (130-400); RDW Coefficient of Variation 16.1 % (11.5-14.5); RDW Standard Deviation 49.7 fL (36.4-46.3); Red Blood Count 2.88 M/uL (4.20-5.40); White Blood Count 9.55 K/ul (4.8-10.8)
[2023-01-14 07:19] LABS: BUN Creatinine Ratio 13.2 (10-20); Calcium 8.6 mg/dl (8.6-10.3); Creatinine Clr Calc Pharmacy 38.2 ml/min; Est GFR (African American) 32.2 ml/min; Est GFR (Non-African American) 27.8 ml/min; Potassium 4.3 mmol/L (3.5-5.1)
[2023-01-14 07:26] LABS: Polychromasia 1+
[2023-01-14] MEDS: BUMETANIDE 1 MG TAB PO SCH (08:27)
[2023-01-14] MEDS: PANTOprazole 40 MG TAB PO SCH ×2 (08:27→20:06)
[2023-01-14] MEDS: amLODIPine BESYLATE 5 MG TAB PO SCH (08:27)
[2023-01-14] MEDS: FLUTICASONE PROPIONATE NA SPR 16 GM BTL SCH (08:27)
[2023-01-14] MEDS: FAMOTIDINE 20 MG in SYRINGE 3 ML IV SCH (08:28)
[2023-01-14] MEDS: INSULIN ASPART PER UNIT CHARGE SC SCH ×4 (08:30→21:04)
[2023-01-14] MEDS: LANTUS PER UNIT CHARGE SQ SCH ×2 (08:30→21:04)
[2023-01-14] MEDS: cephALEXin 500 MG CAP PO SCH ×2 (14:02→21:07)
--- NOTE | 2023-01-14 15:38 | Hospitalist Progress Note ---
Date of Service January 14, 2023 Assessment & Plan (1) Diabetic ulcer of right heel: Plan: 62 y/o female with a PMHx of uncontrolled DM, diabetic neuropathy and foot ulcers, CKD stage 3, anemia, GERD, HTN, HLD, hypothyroidism and BPPV presented with dehydration from nausea/vomiting and diarrhea (resolved) and increased redness and pain of right sided diabetic foot ulcer. Had been prescribed oral doxy by wound clinic but unable to keep them down and never actually took any. RLE diabetic foot ulcer with cellulitis. Last wound cultures 11/21 pseudomonas mckeon-sensitive, 01/04 MSSA reviewed arterial duplex 07/12/22 - TBIs normal and adequate for healing, ABIs not obtainable r/t incompressible vessels, <50% stenosis R EIA Hypoalbuminemia - alb 3.0 affects wound healing - nutrition Currently has HH but was working on being placed at [facility] for rehab to improve wound healing -stopped cefepime 01/14, change to oral cefalexin (hives with amox, most recent culture was MSSA) -wound nurse consulted and evaluated -heel offloading, PT/OT eval - rec SNF -check ESR and CRP --> ESR 101 severely elevated (however reviewed old records and is constantly >90 for unclear reason), CRP 1. Examined R heel wound 01/13 surrounding cellulitis improved but wound continues to have significant amount of greenish yellow smelly drainage. The wound is relatively shallow and covered with pink granulation tissue, I think the risk of underlying OM is low R foot prox phalanx fracture age indeterminate - seen on plain film of foot. Not tender no deformity may not be acute. No specific treatment. Not near wound. (2) PERLITA (acute kidney injury): Plan: #PERLITA on CKD 3 (baseline Cr 1.2-1.3) - prerenal injury related to dehydration from N/V/D. Was in mid 2's at recent outpatient nephrology appointment. -1.5L crystalloid given at admission -Lactate elevation due to volume depletion resolved. Minimal metabolic acidosis resolved on 01/12 BMP -lisinopril previously stopped by outpatient hardware designer for PERLITA -BMP reviewed Cr unchanged at 1.9 today -AM BMP, avoid nephrotoxin, continue holding PETER (3) Uncontrolled type 2 diabetes mellitus with hyperglycemia: Plan: Last HbA1c 7.7. On metformin, insulin, dapagliflozin, dulaglutide. BG above goal 01/14 glargine 17u bid, aspart CF 25, cr 8 -will slightly increase glargine to 18 bid (4) Hypertension: Plan: Hypertension - BP elevated above goal 01/12, 01/13 amlodipine 2.5 mg, Bumex 1 mg at home -increased amlodipine to 5 mg daily, bp improved 01/14 (5) Hypercholesteremia: Plan: continue statin (6) Anxiety: Plan: continue TCA for depression/anxiety (7) Hypothyroidism: Plan: contninue levothyroxine (8) Chronic diastolic CHF (congestive heart failure): Plan: Chronic diastolic HF Last ECHO 2017 - Grade I diastolic dysfunction, moderate LVH -euvolemic, work on BP control EKG with bifascicular block, unchanged from 01/31 (9) Chronic kidney disease, stage III (moderate): (10) Morbid obesity with BMI of 50.0-59.9, adult: Plan: BMI 49, increased risk of nonhealing foot ulcer (11) GERD (gastroesophageal reflux disease): Plan: Complaint of dysphagia solid foods 2 weeks, seems improved? Gi consulted - recommended outpatient EGD and clinic will contact to schedule, increased PPI to bid. stop famotidine (12) Anemia: Plan: Baseline Hgb 9-10. 8.7 this admit. Continue to monitor. colonoscopy 02/13/22 - diverticulosis, rectal polyp, int hemorrhoids (13) Depression: Plan follow up - urine culture 01/11 = lactobacillus blood cultures 01/11 - NGTD Code status: conditional code - declines intubation for respiratory failure, acceptable in the setting cardiac arrest DVT ppx: Lovenox Dispo: lives at home, home health, prefers SNF to try to heal foot ulcer Admission and Anticipated Discharge Date Admission Date: January 11, 2023 Subjective RNs report she was confused over night and wandering in the hallway, which is new. She agrees she feels foggy/off today. R heel remains insensate. PT rec'd SNF Physical Exam 2 Physical Exam: PHYSICAL EXAMINATION Last 24h vital signs reviewed, see documentation in flowsheet General: comfortable appearing, no distress, sitting on EOB eating HEENT: Normocephalic, atraumatic, pupils round and equal, sclerae anicteric, no conjunctival injection, moist mucus membranes Lungs: Normal respiratory effort. Clear to auscultation bilaterally. No RRW Heart: Regular rate and rhythm, no murmurs. No JVD Abdomen: Soft, nontender, nondistended. Bowel sounds present. Extremities: Warm, dry, well-perfused. No extremity edema. RLE dressed Neuro: Alert and oriented x 4, face symmetric, moves 4 extremities well Psych: Normal affect and behavior Results & Data Results & Data Vital Signs (Past 12 Hours) Vital Signs Temp Pulse Resp BP BP Pulse Ox O2 Del Method 01/14/23 07:40 Room Air 01/14/23 07:32 36.9 C 62 18 164/70 H 99 Room Air 01/14/23 04:46 36.8 C 66 18 186/92 H 97 Room Air Laboratory Results 01/14/23 06:27 01/14/23 06:27 PG Care Time/CCT Total # of Minutes Spent Total Time Spent with Patient: Total time spent is greater than 50% in coordination of care (as documented) at patient's floor/unit and/or counseling patient: Coding Level of Care Code 29914 SUB INP/OBS CARE 2/35MIN Diagnoses Diabetic ulcer of right heel E11.621; L97.419 PERLITA (acute kidney injury) N17.9 Uncontrolled type 2 diabetes mellitus with hyperglycemia E11.65 Essential hypertension I10 Hypertension type: essential hypertension Hypercholesteremia E78.00 Anxiety F41.9 Hypothyroidism E03.9 Chronic diastolic CHF (congestive heart failure) I50.32 Chronic kidney disease, stage III (moderate) N18.30 Morbid obesity with BMI of 50.0-59.9, adult E66.01; Z68.43 GERD (gastroesophageal reflux disease) K21.9 Anemia D64.9 Depression F32.9 (4) Hypertension Hypertension type: essential hypertension Qualified Code(s): I10 - Essential (primary) hypertension
[2023-01-14] MEDS: ATORVASTATIN 40 MG TAB PO SCH (20:06)
[2023-01-14] MEDS: AMITRIPTYLINE HCL 100 MG TAB PO SCH (20:06)
[2023-01-15] MEDS: cephALEXin 500 MG CAP PO SCH ×4 (05:33→23:01)
[2023-01-15] MEDS: ENOXAPARIN INJ 40 MG/0.4 ML SYR SQ SCH ×2 (05:33→17:00)
[2023-01-15] MEDS: LEVOTHYROXINE SODIUM 175 MCG TABLET PO SCH (05:34)
[2023-01-15 08:00] LABS: Basophils # (auto) 0.03 K/uL (0.00-0.20); Basophils % (auto) 0.3 %; Eosinophils % (auto) 3.1 %; Hematocrit (blood only) 24.7 % (37.0-47.0); Hemoglobin 7.5 g/dl (12.0-16.0); Immature Granulocytes # (auto) 0.04 K/uL (0.01-0.20); Immature Granulocytes % (auto) 0.4 %; Lymphocytes # (auto) 3.86 K/uL (1.20-3.40); Lymphocytes % (auto) 39.4 %; Mean Corpuscular Hgb Conc 30.4 g/dL (32.0-36.0); Mean Corpuscular Volume 85.5 fL (80.0-100.0); Mean Platelet Volume 11.3 fL (9.4-12.4); Monocytes # (auto) 0.65 K/uL (0.11-0.59); Monocytes % (auto) 6.6 %; Neutrophils # (auto) 4.92 K/uL (1.40-6.50); Neutrophils % (auto) 50.2 %; Platelet Count 319 K/uL (130-400); RDW Coefficient of Variation 15.9 % (11.5-14.5); RDW Standard Deviation 49.9 fL (36.4-46.3); Red Blood Count 2.89 M/uL (4.20-5.40)
[2023-01-15] MEDS: FLUTICASONE PROPIONATE NA SPR 16 GM BTL SCH (08:02)
[2023-01-15] MEDS: amLODIPine BESYLATE 5 MG TAB PO SCH (08:02)
[2023-01-15] MEDS: BUMETANIDE 1 MG TAB PO SCH (08:02)
[2023-01-15] MEDS: PANTOprazole 40 MG TAB PO SCH ×2 (08:02→19:32)
[2023-01-15 08:21] LABS: Polychromasia 1+
[2023-01-15 08:25] LABS: BUN Creatinine Ratio 13.9 (10-20); Calcium 8.7 mg/dl (8.6-10.3); Creatinine Clr Calc Pharmacy 35.9 ml/min; Est GFR (African American) 29.9 ml/min; Est GFR (Non-African American) 25.8 ml/min; Potassium 4.1 mmol/L (3.5-5.1)
[2023-01-15] MEDS: LANTUS PER UNIT CHARGE SQ SCH ×2 (08:53→21:01)
[2023-01-15] MEDS: INSULIN ASPART PER UNIT CHARGE SC SCH ×4 (08:53→21:01)
--- NOTE | 2023-01-15 17:08 | Hospitalist Progress Note ---
Date of Service January 15, 2023 Assessment & Plan (1) Diabetic ulcer of right heel: Plan: 62 y/o female with a PMHx of uncontrolled DM, diabetic neuropathy and foot ulcers, CKD stage 3, anemia, GERD, HTN, HLD, hypothyroidism and BPPV presented with dehydration from nausea/vomiting and diarrhea (resolved) and increased redness and pain of right sided diabetic foot ulcer. Had been prescribed oral doxy by wound clinic but unable to keep them down and never actually took any. RLE diabetic foot ulcer with cellulitis. Last wound cultures 11/21 pseudomonas mckeon-sensitive, 01/04 MSSA reviewed arterial duplex 07/12/22 - TBIs normal and adequate for healing, ABIs not obtainable r/t incompressible vessels, <50% stenosis R EIA Hypoalbuminemia - alb 3.0 affects wound healing - nutrition Was home with HH but having trouble getting by and with wound healing - [facility] bed [facility] for rehab and to improve wound healing -stopped cefepime 01/14, changed to oral cefalexin (hives with amox, most recent culture was MSSA) - tolerating well -wound nurse consulted and evaluated -heel offloading, PT/OT eval - rec SNF -check ESR and CRP --> ESR 101 severely elevated (however reviewed old records and is constantly >90 for unclear reason), CRP 1. The wound is relatively shallow and covered with pink granulation tissue, I think the risk of underlying OM is low -cellulitis had resolved and drainage much less on exam 01/14 R foot prox phalanx fracture age indeterminate - seen on plain film of foot. Not tender no deformity may not be acute. No specific treatment. Not near wound. (2) PERLITA (acute kidney injury): Plan: #PERLITA on CKD 3 (baseline Cr 1.2-1.3) - prerenal injury related to dehydration from N/V/D. Was in mid 2's at recent outpatient nephrology appointment. -1.5L crystalloid given at admission -Lactate elevation due to volume depletion resolved. Minimal metabolic acidosis resolved on 01/12 BMP -lisinopril previously stopped by outpatient ed transporter for PERLITA -BMP reviewed Cr unchanged at 2.0 today -AM BMP, avoid nephrotoxin, continue holding PETER -getting edematous, increased oral bumex to 1.5 mg daily (3) Uncontrolled type 2 diabetes mellitus with hyperglycemia: Plan: Last HbA1c 7.7. On metformin, insulin, dapagliflozin, dulaglutide. BG above goal 01/15 glargine 17u bid, aspart CF 25, cr 8 -increased glargine to 20u bid (4) Hypertension: Plan: Hypertension - BP elevated above goal consistently amlodipine 2.5 mg, Bumex 1 mg at home -increased amlodipine to 5 mg daily, bp improved 01/14, 01/15 may need further increase. bumex also increased today (5) Hypercholesteremia: Plan: continue statin (6) Anxiety: Plan: continue TCA for depression/anxiety (7) Hypothyroidism: Plan: contninue levothyroxine (8) Chronic diastolic CHF (congestive heart failure): Plan: Chronic diastolic HF Last ECHO 2017 - Grade I diastolic dysfunction, moderate LVH -euvolemic, work on BP control -increased bumex 01/15 EKG with bifascicular block, unchanged from 01/31 (9) Chronic kidney disease, stage III (moderate): (10) Morbid obesity with BMI of 50.0-59.9, adult: Plan: BMI 49, increased risk of nonhealing foot ulcer (11) GERD (gastroesophageal reflux disease): Plan: Complaint of dysphagia solid foods 2 weeks, seems improved? Gi consulted - recommended outpatient EGD and clinic will contact to schedule, increased PPI to bid. stop famotidine (12) Anemia: Plan: Baseline Hgb 9-10. 8.7 this admit. Continue to monitor. colonoscopy 02/13/22 - diverticulosis, rectal polyp, int hemorrhoids (13) Depression: Plan follow up - urine culture 01/11 = lactobacillus blood cultures 01/11 - NGTD Code status: conditional code - declines intubation for respiratory failure, acceptable in the setting cardiac arrest DVT ppx: Lovenox Dispo: lives at home, home health, prefers SNF to try to heal foot ulcer Admission and Anticipated Discharge Date Admission Date: January 11, 2023 Subjective had another episode of sleepwalking and was slightly confused overnight, saw writing on the door opposite she knows wasn't there. No pain R heel. Leg edema a little worse than usual. Physical Exam 2 Physical Exam: PHYSICAL EXAMINATION Last 24h vital signs reviewed, see documentation in flowsheet General: comfortable appearing, no distress, sitting on EOB eating HEENT: Normocephalic, atraumatic, pupils round and equal, sclerae anicteric, no conjunctival injection, moist mucus membranes Lungs: Normal respiratory effort. Clear to auscultation bilaterally. No RRW Heart: Regular rate and rhythm, no murmurs. No JVD Abdomen: Soft, nontender, nondistended. Bowel sounds present. Extremities: Warm, dry, well-perfused. 1+ pitting lower extremity edema. RLE dressed Neuro: Alert and oriented x 4, face symmetric, moves 4 extremities well Psych: Normal affect and behavior Results & Data Results & Data Vital Signs (Past 12 Hours) Vital Signs Temp Pulse Pulse Resp BP BP Pulse Ox 01/15/23 14:56 176/68 H 01/15/23 14:25 36.9 C 66 16 196/83 H 98 01/15/23 12:45 36.6 C 69 19 167/81 H 97 01/15/23 08:00 36.6 C 67 18 189/73 H 96 01/15/23 07:10 36.6 C 63 18 149/74 H 97 O2 Del Method 01/15/23 14:56 01/15/23 14:25 Room Air 01/15/23 12:45 Room Air 01/15/23 08:00 Room Air 01/15/23 07:10 Room Air Laboratory Results 01/15/23 06:56 01/15/23 06:56 PG Care Time/CCT Total # of Minutes Spent Total Time Spent with Patient: Total time spent is greater than 50% in coordination of care (as documented) at patient's floor/unit and/or counseling patient: Coding Level of Care Code 01123 SUB INP/OBS CARE 2/35MIN Diagnoses Diabetic ulcer of right heel E11.621; L97.419 PERLITA (acute kidney injury) N17.9 Uncontrolled type 2 diabetes mellitus with hyperglycemia E11.65 Essential hypertension I10 Hypertension type: essential hypertension Hypercholesteremia E78.00 Anxiety F41.9 Hypothyroidism E03.9 Chronic diastolic CHF (congestive heart failure) I50.32 Chronic kidney disease, stage III (moderate) N18.30 Morbid obesity with BMI of 50.0-59.9, adult E66.01; Z68.43 GERD (gastroesophageal reflux disease) K21.9 Anemia D64.9 Depression F32.9 (4) Hypertension Hypertension type: essential hypertension Qualified Code(s): I10 - Essential (primary) hypertension
[2023-01-15] MEDS: ATORVASTATIN 40 MG TAB PO SCH (19:32)
[2023-01-15] MEDS: AMITRIPTYLINE HCL 100 MG TAB PO SCH (19:33)
[2023-01-16] MEDS: ENOXAPARIN INJ 40 MG/0.4 ML SYR SQ SCH (06:08)
[2023-01-16] MEDS: cephALEXin 500 MG CAP PO SCH (06:08)
[2023-01-16] MEDS: LEVOTHYROXINE SODIUM 175 MCG TABLET PO SCH (06:09)
[2023-01-16] MEDS: PANTOprazole 40 MG TAB PO SCH (08:26)
[2023-01-16] MEDS: FLUTICASONE PROPIONATE NA SPR 16 GM BTL SCH (08:29)
[2023-01-16] MEDS ORDERED: BUMETANIDE 1 MG TAB PO SCH (09:00)
[2023-01-16] MEDS ORDERED: amLODIPine BESYLATE 5 MG TAB PO SCH (09:00)
[2023-01-16] MEDS: INSULIN ASPART PER UNIT CHARGE SC SCH (09:08)
[2023-01-16] MEDS: LANTUS PER UNIT CHARGE SQ SCH (09:08)
[2023-01-16 09:33] LABS: Hematocrit (blood only) 27.9 % (37.0-47.0); Hemoglobin 8.7 g/dl (12.0-16.0); Mean Corpuscular Hemoglobin 26.4 pg (25.0-34.0); Mean Corpuscular Hgb Conc 31.2 g/dL (32.0-36.0); Mean Corpuscular Volume 84.5 fL (80.0-100.0); Mean Platelet Volume 10.7 fL (9.4-12.4); Platelet Count 389 K/uL (130-400); RDW Coefficient of Variation 16.2 % (11.5-14.5); RDW Standard Deviation 49.1 fL (36.4-46.3); White Blood Count 10.38 K/ul (4.8-10.8)
[2023-01-16 09:49] LABS: BUN Creatinine Ratio 15.6 (10-20); Calcium 8.9 mg/dl (8.6-10.3); Creatinine Clr Calc Pharmacy 34.2 ml/min; Est GFR (African American) 28.2 ml/min; Est GFR (Non-African American) 24.3 ml/min; Potassium 3.8 mmol/L (3.5-5.1)
[2023-01-16 10:10] LABS: Ferritin 27.8 ng/ml (8-388)
[2023-01-16 10:15] LABS: Folate (Folic Acid),Ser orPlas 6.16 ng/ml (>5.38)
--- NOTE | 2023-01-16 10:45 | Discharge Summary ---
Date of Service January 16, 2023 Admission HPI Per Admitting Provider 62 y/o female with a PMHx of DM, diabetic ulcers, CKD, anemia, GERD, HTN, HLD, and hypothyroidism presented with 3-4 days of vertigo symptoms with subsequent nausea and vomiting. Last bout of emesis was 01/10. No blood in the vomit or stool. Having loose BMs as well. Having subjective fevers - no recorded elevated temperature. Does have a productive cough - white/foamy. In addition patient has been feeling generally unwell with some epigastric discomfort. No CP or SOB. No leg pain or foot pain. No sore throat. Patient does have an ulcer on her right foot. Has previously grown MSSA and pseudomonas. Last culture 01/04 with MSSA. Was recommended to start doxy, but with her GI symptoms she held off on picking up this medication. Pseudomonas previously treated with gentamicin ointment. Wound care is done daily. No concern that this has worsened. Patient does have a history of vertigo typically BPPV that worsens when rolling from one side to the other, which has been going on for awhile. Reportedly the patient also has dysphagia with solids for the last few weeks. Dysphagia with solids - GI consult In the ED Lactate 2.9 Leukocytosis 11.6. CXR clear. XR foot with ulcer and signs of cellulitis. Started on doxycycline and cefepime in the ED. Fluid resuscitated with 1.5L NS. Lactate improved to 1.9. Hypertensive in the ED. Asymptomatic. Has improved with nausea control. Discharge Data Allergies Allergy/AdvReac Type Severity Reaction Status Date / Time amoxicillin Allergy Intermediate hives Verified 01/11/23 13:21 dextromethorphan Allergy Intermediate Hives Verified 01/11/23 13:21 [From NyQuil] doxylamine [From NyQuil] Allergy Intermediate Hives Verified 01/11/23 13:21 latex Allergy Intermediate RASH Verified 01/11/23 13:21 Sulfa (Sulfonamide Allergy Intermediate RASH Verified 01/11/23 13:21 Antibiotics) clarithromycin AdvReac Intermediate HEART RACES Verified 01/11/23 13:21 Arnshane's multigrain bread Allergy Intermediate Hives Uncoded 01/11/23 13:21 Consultations 01/11/23 17:13 Consult Gastroenterology Routine Discharge Plan Discharge Items Patient Disposition: Transfer Nursing Home Fac Reason For Visit: DIABETIC FOOT ULCER WITH CELLULITIS Discharge Diagnosis: 1. Right heel diabetic foot ulcer with cellulitis - wound care clinic follow-up needed 2. Episode of sundowning/confusion 3. ?Developing cognitive impairment? neurology follow-up needed 4. Vitamin B12 deficiency 5. CKD stage 3b; discharge creatinine 2.1 6. Type 2 diabetes 7. Hypertension Condition on Discharge: Good Activity: As commented below Activity Comment: wear heel offloading shoe on right foot whenever out of bed / ambulating Weightbearing: Right partial Weightbearing Comment: keep weight off R heel. wear offloading shoe on right whenever out of bed Non-emergency contact: Primary Care Provider and Specialist Call non-emergency contact if: you have any medication questions and your symptoms worsen Follow-up/Referrals: Buddy Caballero MD [Physician] - (1-2 weeks for CKD stage 3 & BP management. ) Frandy Anders MD [Physician] - (any provider at [facility] - dx: ?developing early cognitive impairment?; first available appointment is OK) Katherine Ugarte CRNP [Nurse Practitioner] - (5-7 days; recheck of RIGHT heel wound) Tess Myles PA-C [Physician Folder Machine Adjuster] - (see [facility] for dysphagia; needs EGD.) Natali Langston DO [Primary Care Provider] - Diet: Carb Consistent or DM2 Fluids: 1800ml (7 cups) Addtl Attending Provider Instructions: You were treated with antibiotics for skin and wound infection of your right heel. Recent culture from the right heel showed methicillin-sensitive staph aureus. You had some mild nighttime confusion, possibly caused by an antibiotic called cefepime. Be cautious if this antibiotic needs to be used in the future. Other possibility is that you had confusion from simply being ill with infection. Your close friend has mentioned to you that you have had some very mild memory difficulty at times - would recommend a follow-up visit with neurology to investigate this further. The gastroenterology clinic should be contacting you in the future to schedule upper endoscopy ("EGD") to evaluate swallowing difficulty. Wound Care to right heel - change dressing EVERY DAY and prn. * cleanse wound with saline * Aquacel Ag to wound * then ABD * then kerlix dressing * heel offloading shoe AT ALL TIMES WHEN AMBULATING/OUT OF BED * when in bed can use waffle boots to offload / float heels Additional instructions: 1. Check BSGs AC and HS. 2. CBC, BMP in 3-4 days for stability. 3. follow-up appointments - see separate section Pending Studies at Discharge: No Stand-Alone Forms: My [facility] Skilled Items Patient informed of condition?: Yes DNR: No Discharge Level of Care: Skilled Communicable Disease: No Discharge Prognosis: Improving Lines: None Urinary Catheter: No Medications and DC Order Prescriptions: New insulin glargine [Lantus U-100 Insulin] 100 unit/mL Solution 22 unit subcut BID Qty: 10 0RF cephalexin 500 mg Capsule 500 mg PO TID 10 Days Qty: 30 0RF pantoprazole 40 mg Tablet,Delayed Release (Dr/Ec) 40 mg PO BID Qty: 60 1RF cyanocobalamin (vitamin B-12) 1,000 mcg tablet 1,000 mcg PO DAILY Qty: 30 5RF folic acid 1 mg tablet 1,000 mcg PO DAILY Qty: 30 0RF Rx Instructions: stop after 30 days. Saccharomyces boulardii 250 mg capsule 250 mg PO DAILY 10 Days Qty: 10 0RF insulin aspart U-100 [Novolog FlexPen U-100 Insulin] 100 unit/mL (3 mL) insulin pen 1 sliding scale dose subcut USEASDIRECTD Qty: 15 0RF Rx Instructions: For meal-time use. Use following parameters. BSG goal = 120-150. Correction factor = 20. Carbohydrate ratio = 1 unit of novolog for every 7 grams of carbs consumed. melatonin 3 mg tablet 3 mg PO HS Qty: 30 0RF Continued Trulicity 1.5 mg/0.5 mL pen injector 1.5 mg subcut .Weekly Rx Instructions: Sunday Farxiga 5 mg tablet 5 mg PO QAM Qty: 90 0RF Rx Instructions: PT NEEDS TO SCHEDULE AN APPOINTMENT SUAD FOR ANOTHER REFILL (DME) FreeStyle Precision Perico Strips Strip See Rx Instructions .Route Rx Instructions: Test once daily with Freestyle Davy PRN (DME) FreeStyle Davy 14 Day Sensor Kit See Rx Instructions .Route Rx Instructions: As directed (DME) FreeStyle Davy 14 Day [place] Misc See Rx Instructions .Route Rx Instructions: As directed (DME) pen needle, diabetic [BD Ultra-Fine Siria Pen Needle] 32 gauge x 5/32" needle See Rx Instructions .Route Rx Instructions: Use 4 per day with insulin injection (DME) lancets [OneTouch Delica Lancets] 30 gauge misc See Rx Instructions .Route Rx Instructions: Test blood sugar once daily PRN loratadine 10 mg tablet 10 mg PO DAILY PRN (Reason: Allergy Symptoms) levothyroxine [Synthroid] 175 mcg Tablet 175 mcg PO QAM fluticasone propionate 50 mcg/actuation [place],Suspension 1 spray INTRANASAL QAM atorvastatin 80 mg tablet 80 mg PO HS amitriptyline 50 mg Tablet 100 mg PO HS albuterol sulfate 90 mcg/actuation HFA aerosol inhaler 1 - 2 puff INHALATION QID PRN (Reason: ASTHMA) bumetanide 1 mg tablet 1 mg PO QAM cholecalciferol (vitamin D3) 50 mcg (2,000 unit) capsule 50 mcg PO QAM Changed amlodipine 2.5 mg tablet 2.5 mg PO BID Qty: 60 0RF Discontinued insulin aspart U-100 [Novolog FlexPen U-100 Insulin] 100 unit/mL (3 mL) insulin pen See Rx Instructions .ROUTE .COMPLEX MDD 115 Qty: 105 3RF Rx Instructions: Inject 45 units in the am, 40 units with lunch, and 30 units in the PM.; famotidine [Pepcid] 20 mg tablet 20 mg PO BID metformin 1,000 mg Tablet 1,000 mg PO BID omeprazole 20 mg Tablet,Delayed Release (Dr/Ec) 20 mg PO QPM Levemir FlexTouch U100 Insulin 100 unit/mL (3 mL) insulin pen See Rx Instructions .ROUTE .COMPLEX MDD 97 UNITS Rx Instructions: 54 UNITS SC QAM, THEN 43 UNITS QPM. TDD 97 UNITS. doxycycline hyclate 100 mg tablet 0 mg PO bid Rx Instructions: Start Date was supposed to be 01/08/23, End Date was supposed to be 01/18/23. However pt didn't received medication until this morning, so they haven't started it yet. Original Simg by mouth twice daily Discharge Orders: Discharge Order (Routine); Ordered 01/16/23 Ordered By: Rudolph Carlin Admission Data Admit Date/Time: 01/11/23 14:30 Attending Provider: Rudolph Carlin Admit Provider: Rama,Rudolph M. Primary Care Provider: Natali Langston Other Providers: Amos Flores; Mariano Calderon; Elana Carlos; Iris Hernandez; Tess Myles; Marita Alvarez; Antonio Rizzo; Paco Christian; Linden Mello; Khloe Radford; Sue Lei; Bj Fox; Anahi Borden; Evelina Hart; Chel Parsons; Sherry Lacey; Osman Duron; Héctor Womack; Junior Berry; Rama Magdaleno; Glory Greene Jr; Jane Gore; [facility]; [place] Other Interventions: Discharge Summary Assessment (RN) Last Done: 01/16/23 07:25 Coding
== END 2023-01-16 11:12 | DRG 638 ==
LOC: ED 10:30 → SUATTDRO 14:30 → EDINP 14:30 → 3N 17:11

== ENCOUNTER 2023-03-19 05:43 | Inpatient (IN) ==
[2023-03-19 06:31] LABS: Basophils # (auto) 0.08 K/uL (0.00-0.20); Basophils % (auto) 0.5 %; Eosinophils # (auto) 0.19 K/uL (0.00-0.50); Eosinophils % (auto) 1.2 %; Hemoglobin 7.5 g/dl (12.0-16.0); Immature Granulocytes # (auto) 0.09 K/uL (0.01-0.20); Immature Granulocytes % (auto) 0.6 %; Lymphocytes # (auto) 4.92 K/uL (1.20-3.40); Mean Corpuscular Volume 86.5 fL (80.0-100.0); Mean Platelet Volume 11.4 fL (9.4-12.4); Monocytes # (auto) 1.04 K/uL (0.11-0.59); Monocytes % (auto) 6.8 %; Neutrophils # (auto) 9.05 K/uL (1.40-6.50); Neutrophils % (auto) 58.9 %; Platelet Count 431 K/uL (130-400); RDW Standard Deviation 56.8 fL (36.4-46.3); Red Blood Count 2.89 M/uL (4.20-5.40); White Blood Count 15.37 K/ul (4.8-10.8)
[2023-03-19 06:44] LABS: Albumin Globulin Ratio 0.7 (0.9-2); BUN Creatinine Ratio 16.3 (10-20); Bilirubin,Total 0.2 mg/dl (0.2-1.0); Calcium 8.5 mg/dl (8.6-10.3); Creatinine Clr Calc Pharmacy 41.9 ml/min; Est GFR (African American) 28.7 ml/min; Est GFR (Non-African American) 24.7 ml/min; Globulin 4.1 gm/dl (2.5-4.0); Potassium 4.7 mmol/L (3.5-5.1); Total Protein 7.1 gm/dl (6.0-8.3)
[2023-03-19 06:51] LABS: Troponin I High Sensitivity 18.7 pg/ml (0-14)
[2023-03-19] MEDS ORDERED: SODIUM CHLORIDE 0.9% 250 ML IV PRN (06:52)
--- NOTE | 2023-03-19 07:07 | XRay Report ---
XR chest 1V not portable CLINICAL HISTORY: Shortness of Breath TECHNIQUE: Single frontal radiograph of the chest was obtained. Comparison: Comparison is made to chest and abdomen radiograph 01/25/2023 FINDINGS: Exam is limited by underpenetration. Cardiomegaly is noted. The aortic arch is calcified. Prominence and cephalization of the vasculature is seen. No evidence of pleural effusion or pneumothorax. IMPRESSION: Cardiomegaly and mild pulmonary edema. ACT 112: Negative or not required by law. Electronically signed by: Juan Ramon Bejarano M.D. 03/19/2023 7:06 AM
[2023-03-19 07:16] LABS: Polychromasia 1+
--- NOTE | 2023-03-19 07:23 | Emergency Department Note ---
Impression & Plan Diabetic foot ulcer, Acute dyspnea, Symptomatic anemia ED Provider Note CHIEF COMPLAINT: Shortness of breath HISTORY OF PRESENT ILLNESS: This 62-year-old female patient with past medical history of morbid obesity, hypertension, hypercholesterolemia, fibromyalgia, heart failure, chronic kidney disease, uncontrolled type 2 diabetes, hyperlipidemia, GERD, depression, hypothyroid and diabetic pressure ulcer of the right heel presents to the emergency department with complaints of worsening shortness of breath. The patient states she is no longer able to get up from her bed and ambulate to the bathroom. She has been seen by her primary care team recently and advised that she is anemic, but they are not clear on the source. She states she is on iron and folic acid, but just within the last several weeks. Patient also states she was in the emergency department and had a "scan." Patient denies any blood thinners or aspirin therapy. She denies any obvious blood in her stools. REVIEW OF SYSTEMS: A review of systems was performed with positives and pertinent negatives listed in the history of present illness. 10 systems were reviewed and are otherwise negative. ALLERGIES: see below MEDICATIONS: see below PMH: see below SOCIAL HISTORY: see below DDx: Lower GI bleed, heart failure, PE, pneumonia, pleural effusion, acute coronary syndrome among others. PHYSICAL EXAM: Vital signs reviewed. General: Somewhat pale, morbidly obese appearing 62-year-old female, in no significant distress. Resting on room air. HEENT: Pale conjunctiva, PERRLA, neck supple. Moist mucous membranes. Cardiovascular: Distant heart tones, regular with no extra sounds. Pulmonary: Clear to auscultation bilaterally, normal work of breathing. Abdomen: Soft, nontender, nondistended, positive bowel sounds. GI: Hemoccult negative brown stool. Normal rectal mucosa. Musculoskeletal: Minimal peripheral edema, pressure wound on the right heel. No obvious surrounding cellulitis no drainage Neurologic: Patient awake alert and oriented x 3, speech is clear Skin: Warm, dry, no rash EMERGENCY DEPARTMENT COURSE/MDM: This patient was evaluated and appeared to be in no significant distress. IV access was obtained and laboratory work was drawn. The patient was placed on the forepart reducer and noted to be in a sinus rhythm versus junctional rhythm and vital signs stable. Patient's laboratory work reveals hemoglobin of 7.5. She is stool guaiac negative. The etiology of the patient's anemia is unclear at this time however with her exertional shortness of breath she is felt to be symptomatic enough given her multiple medical comorbidities to be transfused, she was typed and crossed for 2 units. 1 unit was ordered to be transfused. Patient does have a slightly elevated WBC and urine was pending at the time of discussion with the hospitalist. She was given IV ceftriaxone empirically. Patient expressed understanding of the plan for admission and agreed. MONITORING: An order for cardiac monitoring was placed and the patient is noted to be in a junctional rhythm at 78 beats per minute. RADIOLOGY: Chest x-ray to my interpretation reveals mild pulmonary vascular congestion, may be positional. No focal lung consolidation. Otherwise defer to radiology is over read EKG: To my interpretation reveals a likely sinus rhythm versus junctional rhythm at 77 bpm. Left anterior fascicular block, right bundle branch block. LVH. Normal ST segments. QTc 457. No PVC, no PAC. DISPOSITION: Admission I have personally spent 35 minutes of critical care time in the direct management of this patient. This was a life/limb threatening event. This 35 minutes is in excess of all separately billable procedures. Past Med/Surg History Medical History (Updated 03/23/23 @ 05:15 by Lily Kerr MD) Pseudomonas infection History of anesthesia reaction woke up during shoulder arthroscopy Peritonsillar abscess recent admission @ [facility] 01/29/22 for this--per pt has finished all antibiotics for this, no further issues at this time Chronic kidney disease, stage III (moderate) SOB (shortness of breath) RBBB Hypoxia Hyperglycemia due to type 2 diabetes mellitus Pneumonia due to COVID-19 virus COVID-19 hx of in 2019--per pt was hospitalized for COVID--states no symptoms currently Bifascicular block Foot drop LEFT Chronic back pain Osteoarthritis Hx of irritable bowel syndrome Cataract Bilateral Umbilical hernia Hiatal hernia PTSD (post-traumatic stress disorder) History of diverticulitis Tear of medial meniscus of right knee, current Morbid obesity with BMI of 50.0-59.9, adult Diabetes mellitus with hyperglycemia, with long-term current use of insulin Neck pain Narrowing of C6-C7 with bone spurs. CAUSES NUMBNESS IN LEFT ARM GERD (gastroesophageal reflux disease) Depression Anxiety Hyperlipidemia Hypertension Asthma COLD WEATHER FLARES UP/DENIES RECENT FLARE UP/ALBUTEROL ONLY PRN History of migraine Hyperosmolar hyponatremia Fibromyalgia Hypothyroidism Surgical History History of repair of right rotator cuff History of repair of left rotator cuff History of repair of ACL L S/P rotator cuff repair History of arthroscopy of right shoulder History of dilatation and curettage History of repair of ACL R History of esophagogastroduodenoscopy (EGD) History of colonoscopy History of D&C Family History Grandfather Diabetes Mother Myocardial infarction Heart disease Tobacco abuse Hx of CABG Family/Other Family history of diabetes mellitus Brother Family history of diabetes mellitus Father Aortic aneurysm Grandmother (Paternal) Cerebral aneurysm Stroke Other Family history of colon cancer in mother Social History Smoking Status: Never smoker Second Hand Exposure: Yes; Do You Dip or Chew Tobacco: No; Hx Alcohol Use: No Hx Substance Use: No Preferred Language: [place] Communication Ability: Effective Visual Impairment: No Limitations Service Secretary Required: No Beliefs That Will Affect Care: None marital status: Current Living Situation: Alone Other Information That Helps Us Care for You: No Feels Safe at Home: Yes Assistive Devices: Glasses and Walker Allergies Allergies Allergy/AdvReac Type Severity Reaction Status Date / Time amoxicillin Allergy Intermediate hives Verified 03/13/23 13:02 dextromethorphan Allergy Intermediate Hives Verified 03/13/23 13:02 [From NyQuil] doxylamine [From NyQuil] Allergy Intermediate Hives Verified 03/13/23 13:02 latex Allergy Intermediate RASH Verified 03/13/23 13:02 Sulfa (Sulfonamide Allergy Intermediate RASH Verified 03/13/23 13:02 Antibiotics) clarithromycin AdvReac Intermediate HEART RACES Verified 03/13/23 13:02 Arnold's multigrain bread Allergy Intermediate Hives Uncoded 03/13/23 13:02 Home Meds Home Medications Medication Instructions Recorded Confirmed amitriptyline 50 mg tablet 100 mg PO HS 12/06/17 03/19/23 fluticasone propionate 50 1 spray intranasal QAM 03/10/19 03/19/23 mcg/actuation nasal spray,suspension levothyroxine 175 mcg tablet 175 mcg PO QAM 03/10/19 03/19/23 (Synthroid) atorvastatin 80 mg tablet 80 mg PO HS 02/19/20 03/19/23 loratadine 10 mg tablet 10 mg PO DAILY PRN Allergy Symptoms 01/19/21 03/19/23 albuterol sulfate 90 mcg/actuation 1 - 2 puff inhalation QID PRN 06/20/21 03/19/23 aerosol inhaler ASTHMA pen needle, diabetic 32 gauge x 06/20/21 03/13/23 5/32" (BD Ultra-Fine Siria Pen Needle) blood sugar diagnostic (FreeStyle 06/29/21 03/13/23 Precision Perico Strips) flash glucose scanning reader 06/29/21 03/13/23 (FreeStyle Davy 14 Day [place]) flash glucose sensor (FreeStyle 06/29/21 03/13/23 Davy 14 Day Sensor kit) lancets 30 gauge (OneTouch Delica 06/29/21 03/13/23 Lancets) cholecalciferol (vitamin D3) 50 50 mcg PO QAM 02/09/22 03/19/23 mcg (2,000 unit) capsule dulaglutide 1.5 mg/0.5 mL 1.5 mg subcut WK 07/25/22 03/19/23 subcutaneous pen injector (Trulicity) insulin aspart U-100 100 unit/mL 0 sliding scale dose subcut TIDM 01/25/23 03/19/23 (3 mL) subcutaneous pen (Novolog FlexPen U-100 Insulin aspart) insulin glargine 100 unit/mL 54 unit subcut BID 01/25/23 03/19/23 subcutaneous solution (Lantus U-100 Insulin) albuterol sulfate 90 mcg/actuation 2 puff inhalation QID PRN wheezing 03/19/23 03/19/23 aerosol inhaler ipratropium 20 mcg-albuterol 100 2 puff inhalation BID 03/19/23 03/19/23 mcg/actuation mist for inhalation (Combivent Respimat) omeprazole 20 mg capsule,delayed 20 mg PO DAILY 03/19/23 03/19/23 release Previous Rx's Medication Instructions Recorded dapagliflozin propanediol 5 mg 5 mg PO QAM #90 tabs 10/19/22 tablet (Farxiga) amlodipine 2.5 mg tablet 2.5 mg PO BID #60 tabs 01/16/23 cyanocobalamin (vitamin B-12) 1,000 mcg PO DAILY #30 tabs 01/16/23 1,000 mcg tablet ferrous sulfate 325 mg (65 mg 325 mg PO DAILY #30 tabs 01/16/23 iron) tablet folic acid 1 mg tablet 1,000 mcg PO DAILY #30 tabs 01/16/23 melatonin 3 mg tablet 3 mg PO HS #30 tabs 01/16/23 bumetanide 1 mg tablet 1 mg PO QAM #90 tabs 03/07/23 Results & Data (ED) Vital Signs Vital Signs - 24 hr 03/19/23 05:49 03/19/23 05:49 03/19/23 05:49 Temperature 36.6 C Temperature Source Oral Pulse Rate 77 Pulse Rhythm Regular Pulse Strength Normal Respiratory Rate 23 Respiratory Effort / Characteristics Non-Labored Spontaneous Non-Labored Spontaneous Respiratory Depth Normal Normal Respiratory Pattern Regular Regular Blood Pressure 164/76 H Blood Pressure Mean 105 Blood Pressure Position Lying Pulse Oximetry 100 99 Oxygen Delivery Method Room Air Room Air Room Air Sepsis Recent Fever Within 48 Hours No Sepsis New/Unexplained Change in Mental Status No Sepsis Action Taken by Nursing No Action Required 03/19/23 06:12 03/19/23 06:19 Temperature Temperature Source Pulse Rate 78 78 Pulse Rhythm Pulse Strength Respiratory Rate Respiratory Effort / Characteristics Respiratory Depth Respiratory Pattern Blood Pressure Blood Pressure Mean Blood Pressure Position Pulse Oximetry 99 Oxygen Delivery Method Room Air Sepsis Recent Fever Within 48 Hours Sepsis New/Unexplained Change in Mental Status Sepsis Action Taken by Custodial Medications Current Medication List: was personally reviewed by me Laboratory Data Attestation: I reviewed the patient's lab results. 03/22/23 05:29 03/22/23 05:29 Lab Results 03/19/23 03/19/23 03/19/23 Range/Units 05:55 05:56 07:01 WBC 15.37 H (4.8-10.8) K/ul RBC 2.89 L (4.20-5.40) M/uL Hgb 7.5 L (12.0-16.0) g/dl Hct 25.0 L (37.0-47.0) % MCV 86.5 (80.0-100.0) fL MCH 26.0 (25.0-34.0) pg MCHC 30.0 L (32.0-36.0) g/dL RDW Std Deviation 56.8 H (36.4-46.3) fL RDW Coeff of Sylvia 18.0 H (11.5-14.5) % Plt Count 431 H (130-400) K/uL MPV 11.4 (9.4-12.4) fL Immature Gran % (Auto) 0.6 % Neut % (Auto) 58.9 % Lymph % (Auto) 32.0 % Price % (Auto) 6.8 % Eos % (Auto) 1.2 % Baso % (Auto) 0.5 % Neut # (Auto) 9.05 H (1.40-6.50) K/uL Lymph # (Auto) 4.92 H (1.20-3.40) K/uL Price # (Auto) 1.04 H (0.11-0.59) K/uL Eos # (Auto) 0.19 (0.00-0.50) K/uL Baso # (Auto) 0.08 (0.00-0.20) K/uL Immature Gran # (Auto) 0.09 (0.01-0.20) K/uL Polychromasia 1+ PT 11.4 (9.0-12.0) Seconds INR 1.0 (0.9-1.1) APTT 24 (21-31) Seconds PTT Ratio 0.9 Sodium 135 L (136-145) mmol/L Potassium 4.7 (3.5-5.1) mmol/L Chloride 107 (98-107) mmol/L Carbon Dioxide 19 L (21-32) mmol/L Anion Gap 9 (3-11) BUN 34 H (6-23) mg/dl Creatinine 2.09 H (0.6-1.2) mg/dl Est Cr Clr Drug Dosing 41.9 ml/min Est GFR ( Amer) 28.7 ml/min Est GFR (Non-Af Amer) 24.7 ml/min BUN/Creatinine Ratio 16.3 (10-20) Glucose 176 H (70-99(Fasting)) mg/dl Calcium 8.5 L (8.6-10.3) mg/dl Total Bilirubin 0.2 (0.2-1.0) mg/dl AST 19 (13-39) U/L ALT 11 (7-52) U/L Alkaline Phosphatase 113 H (34-104) U/L Troponin I High Sens 18.7 H (0-14) pg/ml B-Natriuretic Peptide 578 H (0-100) pg/ml Total Protein 7.1 (6.0-8.3) gm/dl Albumin 3.0 L (3.4-5.0) gm/dl Globulin 4.1 H (2.5-4.0) gm/dl Albumin/Globulin Ratio 0.7 L (0.9-2) SARS-CoV-2 (PCR) NEGATIVE (Negative) Influenza Type A (PCR) Negative (Neg) Influenza Type B (PCR) Negative (Neg) RSV (RT-PCR) Negative (Neg) Blood Type A Positive Antibody Screen NEGATIVE Crossmatch See Detail Administered Medications Acetaminophen (Acetaminophen 325 Mg Tab) 650 mg PO Q6H PRN PRN Reason: pain(1-4),fever,headache Stop: 04/18/23 11:44 Last Admin: 03/22/23 20:29 Dose: 650 mg Documented By: Admin: 03/21/23 21:33 Dose: 650 mg Documented By: Admin: 03/20/23 15:23 Dose: 650 mg Documented By: JUANPABLO Albuterol (Albuterol Hfa 8 Gm Inhaler) 1 puffs INH BIDR [facility] Stop: 04/20/23 06:59 Last Admin: 03/22/23 18:28 Dose: 1 puffs Documented By: Admin: 03/22/23 07:53 Dose: 1 puffs Documented By: [id number] Admin: 03/21/23 20:34 Dose: 1 puffs Documented By: Admin: 03/21/23 06:18 Dose: 1 puffs Documented By: VALDEMAR Amitriptyline HCl (Amitriptyline Hcl 100 Mg Tab) 100 mg PO HS [facility] Stop: 04/18/23 20:59 Last Admin: 03/22/23 20:25 Dose: 100 mg Documented By: Admin: 03/21/23 21:28 Dose: 100 mg Documented By: Admin: 03/20/23 20:07 Dose: 100 mg Documented By: Admin: 03/19/23 21:16 Dose: 100 mg Documented By: CHRIS Amlodipine Besylate (Amlodipine Besylate 5 Mg Tab) 2.5 mg PO BID [facility] Stop: 04/18/23 20:59 Last Admin: 03/22/23 20:25 Dose: 2.5 mg Documented By: Admin: 03/22/23 08:59 Dose: 2.5 mg Documented By: Admin: 03/21/23 21:28 Dose: 2.5 mg Documented By: Admin: 03/21/23 08:49 Dose: 2.5 mg Documented By: Admin: 03/20/23 20:08 Dose: 2.5 mg Documented By: Admin: 03/20/23 08:08 Dose: 2.5 mg Documented By: Admin: 03/19/23 21:18 Dose: 2.5 mg Documented By: CHRIS Cyanocobalamin (Cyanocobalamin (B-12) 500 Mcg Tablet) 1,000 mcg PO DAILY [facility] Stop: 04/19/23 08:59 Last Admin: 03/22/23 09:00 Dose: 1,000 mcg Documented By: Admin: 03/21/23 08:48 Dose: 1,000 mcg Documented By: Admin: 03/20/23 08:08 Dose: 1,000 mcg Documented By: JUANPABLO Dextrose (Dextrose 50% 50 Ml Syringe) 25 - 50 ml IV UD PRN; Protocol PRN Reason: Hypoglycemia Protocol Stop: 04/18/23 11:04 Last Admin: 03/19/23 13:47 Dose: 50 ml Documented By: TAIWO Ferrous Sulfate (Ferrous Sulfate 325 Mg Tab) 325 mg PO DAILY [facility] Stop: 04/19/23 08:59 Last Admin: 03/22/23 09:00 Dose: 325 mg Documented By: Admin: 03/21/23 08:49 Dose: 325 mg Documented By: Admin: 03/20/23 08:09 Dose: 325 mg Documented By: JUANPABLO Folic Acid (Folic Acid 1 Mg Tab) 1 mg PO DAILY [facility] Stop: 04/19/23 08:59 Last Admin: 03/22/23 09:00 Dose: 1 mg Documented By: Admin: 03/21/23 08:48 Dose: 1 mg Documented By: Admin: 03/20/23 08:09 Dose: 1 mg Documented By: JUANPABLO Glucose (Glucose 40% Gel 15 Gm Tube) 15 - 30 gm PO UD PRN; Protocol PRN Reason: Hypoglycemia Protocol Stop: 04/18/23 11:04 Last Admin: 03/19/23 13:16 Dose: 30 gm Documented By: TAIWO Bumetanide 2 mg/ Syringe 8 mls @ 4 mls/min IV BID@0900,1700 [facility] Stop: 04/19/23 16:59 Last Admin: 03/22/23 17:23 Dose: 4 mls/min Documented By: Admin: 03/22/23 09:00 Dose: 4 mls/min Documented By: Admin: 03/21/23 18:36 Dose: 4 mls/min Documented By: Admin: 03/21/23 08:48 Dose: 4 mls/min Documented By: Admin: 03/20/23 17:23 Dose: 4 mls/min Documented By: JUANPABLO Insulin Aspart (Insulin Aspart Per Unit Charge) 0 units SC ACHS [facility] Stop: 04/18/23 20:59 Last Admin: 03/22/23 20:30 Dose: 2 units Documented By: TAVARES Co-signed By: FREDY Admin: 03/22/23 18:06 Dose: 7 units Documented By: PAVEL Co-signed By: YOVANI Admin: 03/22/23 12:53 Dose: 6 units Documented By: PAVEL Co-signed By: MANDA Admin: 03/22/23 08:59 Dose: 5 units Documented By: PAVEL Co-signed By: RITA Admin: 03/21/23 21:27 Dose: Not Given Documented By: Admin: 03/21/23 18:36 Dose: 8 units Documented By: PAVEL Co-signed By: ROSALBA Admin: 03/21/23 13:08 Dose: 10 units Documented By: PAVEL Co-signed By: MG Admin: 03/21/23 08:47 Dose: 9 units Documented By: PAVEL Co-signed By: [id number] Admin: 03/20/23 20:37 Dose: 3 units Documented By: VALDEMAR Co-signed By: FLACO Admin: 03/20/23 18:28 Dose: 8 units Documented By: JUANPABLO Co-signed By: ROSALBA Admin: 03/20/23 14:12 Dose: 3 units Documented By: JUANPABLO Co-signed By: ROSALBA Admin: 03/20/23 09:06 Dose: Not Given Documented By: Admin: 03/19/23 21:17 Dose: 2 units Documented By: CHRIS Co-signed By: FLCAO Insulin Glargine (Lantus Per Unit Charge) 10 units SQ DAILY [facility] Stop: 04/21/23 08:59 Last Admin: 03/22/23 08:58 Dose: 10 units Documented By: PAVEL Co-signed By: RITA Insulin Glargine (Lantus Per Unit Charge) 0 units SQ HS [facility]; Protocol Stop: 04/21/23 20:59 Last Admin: 03/22/23 20:29 Dose: 15 units Documented By: TAVARES Co-signed By: FREDY Ipratropium [place]oe (Ipratropium [place]oe Hfa Inhaler) 1 puffs INH BIDR [facility] Stop: 04/20/23 06:59 Last Admin: 03/22/23 18:28 Dose: 1 puffs Documented By: Admin: 03/22/23 07:53 Dose: 1 puffs Documented By: [id number] Admin: 03/21/23 20:34 Dose: 1 puffs Documented By: Admin: 03/21/23 06:18 Dose: 1 puffs Documented By: VALDEMAR Levothyroxine Sodium (Levothyroxine Sodium 175 Mcg Tablet) 175 mcg PO DAILYBB [facility] Stop: 04/19/23 06:29 Last Admin: 03/22/23 06:06 Dose: 175 mcg Documented By: Admin: 03/21/23 04:55 Dose: 175 mcg Documented By: Admin: 03/20/23 06:01 Dose: 175 mcg Documented By: CHRIS Pantoprazole Sodium (Pantoprazole 40 Mg Tab) 40 mg PO DAILY [facility] Stop: 04/19/23 08:59 Last Admin: 03/22/23 09:00 Dose: 40 mg Documented By: Admin: 03/21/23 08:48 Dose: 40 mg Documented By: Admin: 03/20/23 08:09 Dose: 40 mg Documented By: JUANPABLO Discontinued Medications Albuterol (Albuterol Hfa 8 Gm Inhaler) 2 puffs INH NOW ONE Stop: 03/20/23 22:27 Last Admin: 03/20/23 23:43 Dose: 2 puffs Documented By: JUANA Ceftriaxone Sodium (Rocephin) 2,000 mg in 50 mls @ 100 mls/hr IV NOW STA Stop: 03/19/23 09:18 Last Infusion: 03/19/23 16:39 Dose: Infused Documented By: Admin: 03/19/23 10:31 Dose: 100 mls/hr Documented By: MANDA(2) Bumetanide 1 mg/ Syringe 4 mls @ 4 mls/min IV BID@0900,1700 [facility] Stop: 04/18/23 18:44 Last Admin: 03/20/23 08:09 Dose: 4 mls/min Documented By: Admin: 03/19/23 19:30 Dose: 4 mls/min Documented By: CHRIS Cefepime HCl 2,000 mg/ Syringe 20 mls @ 5 mls/min IV Q12H [facility]; Protocol Stop: 03/26/23 23:29 Last Admin: 03/20/23 22:31 Dose: 5 mls/min Documented By: Admin: 03/20/23 11:29 Dose: 5 mls/min Documented By: Admin: 03/19/23 22:56 Dose: 5 mls/min Documented By: CHRIS Daptomycin 375 mg/ Syringe 7.5 mls @ 3.75 mls/min IV Q24H [facility]; Protocol Stop: 03/26/23 11:44 Last Admin: 03/20/23 11:24 Dose: 3.75 mls/min Documented By: Admin: 03/19/23 13:18 Dose: 3.75 mls/min Documented By: TAIWO Cefepime HCl (Maxipime) 20 mls @ 5 mls/min IV ONE STA Stop: 03/19/23 11:35 Last Admin: 03/19/23 13:18 Dose: 5 mls/min Documented By: TAIWO Insulin Aspart (Insulin Aspart Per Unit Charge) 0 units SC 0000,0400 [facility] Stop: 03/20/23 04:01 Last Admin: 03/20/23 03:56 Dose: Not Given Documented By: Admin: 03/20/23 00:20 Dose: Not Given Documented By: CHRIS Insulin Glargine (Lantus Per Unit Charge) 15 units SQ BID [facility] Stop: 04/18/23 20:59 Last Admin: 03/21/23 21:33 Dose: 15 units Documented By: TAVARES Co-signed By: ISAAC Admin: 03/21/23 08:48 Dose: 15 units Documented By: PAVEL Co-signed By: [id number] Admin: 03/20/23 20:37 Dose: 15 units Documented By: VALDEMAR Co-signed By: FLACO Admin: 03/20/23 09:09 Dose: 15 units Documented By: JUANPABLO Co-signed By: ROSALBA Admin: 03/19/23 21:17 Dose: 15 units Documented By: CHRIS Co-signed By: FLACO Imaging Data Radiologist's Impression: Chest X-Ray 03/19/23 06:00 XR chest 1V not portable CLINICAL HISTORY: Shortness of Breath TECHNIQUE: Single frontal radiograph of the chest was obtained. Comparison: Comparison is made to chest and abdomen radiograph 01/25/2023 FINDINGS: Exam is limited by underpenetration. Cardiomegaly is noted. The aortic arch is calcified. Prominence and cephalization of the vasculature is seen. No evidence of pleural effusion or pneumothorax. IMPRESSION: Cardiomegaly and mild pulmonary edema. ACT 112: Negative or not required by law. Electronically signed by: Juan Ramon Bejarano M.D. 03/19/2023 7:06 AM Discharge Plan Visit Data Chief Complaint: Shortness of Breath/Dyspnea Stated Complaint: LEFT ARM PAIN/SHORTNESS OF BREATH ED Provider: Lily Kerr Discharge Problem: Diabetic foot ulcer, Acute dyspnea, Symptomatic anemia Patient Disposition: Admitted As Inpatient Discharge Instructions Interventions: ED Discharge Assessment Last Done: 03/19/23 18:38 Discharge Problem: Diabetic foot ulcer Qualifiers: Diabetic foot ulcer location: heel Diabetes mellitus type: type 2 Laterality: r ight Non-pressure ulcer stage: with fat layer exposed Qualified Code(s): E11.621 - Type 2 diabetes mellitus with foot ulcer; L97.412 - Non-pressure chronic ulcer of right heel and midfoot with fat layer exposed
[2023-03-19 07:48] LABS: Partial Thromboplastin Ratio 0.9; Partial Thromboplastin Time 24 Seconds (21-31); Prothrombin Time 11.4 Seconds (9.0-12.0)
[2023-03-19] MEDS ORDERED: cefTRIAXone SODIUM 2,000 MG/50 ML BAG IV STA (08:49)
--- NOTE | 2023-03-19 09:21 | Electrocardiogram Report ---
Test Reason : Blood Pressure : / mmHG Vent. Rate : 077 BPM Atrial Rate : 000 BPM P-R Int : 000 ms QRS Dur : 128 ms QT Int : 404 ms P-R-T Axes : 000 -41 042 degrees QTc Int : 457 ms Sinus rhythm vs. Junctional rhtyhm Left anterior fascicular block Right bundle branch block Left ventricular hypertrophy with repolarization abnormality Abnormal ECG When compared with ECG of 11-JAN-2023 11:25, P waves no longer readily apparent Confirmed by Dakota Graham ([id number]) on 03/19/2023 9:21:20 AM Referred By: REFERRED SELF Confirmed By:Dakota Graham
--- NOTE | 2023-03-19 10:25 | History & Physical Report ---
Date of Service March 19, 2023 Assessment & Plan (1) CHF exacerbation: Plan: -Admit to med/tele -Currently hemodynamically stable, stable on RA, and asymptomatic at rest -Has been experiencing progressive SOB, TOLBERT, orthopnea, non-productive cough, and weight gain over the past 3 months -Called EMS this am for 20 seconds of left arm pain without radiation -At this time the patient's respiratory symptoms are most consistent with progressive CHF exacerbation -Patient is volume overloaded on exam, BNP elevated, weight significant elevated compared to last admission -Patient denies chest discomfort at rest -Normally on 1gm PO daily, will covert to 1gm IV bumex BID for now -Will obtain TTE as she has not had a repeat in years -Monitor intake/output and daily weights -Will hold chemical DVT PPX for now until GI bleed is ruled out for her worsening anemia -Start clear liquid diet with necta thick consistency, 2gm sodium restriction and 1800 mL fluid restriction for now -AM CBC, CMP, Mag, PT/INR (2) SOB (shortness of breath): Plan: -Has been progressive over the past 2-3 months -Worsening with exertion, relieved with rest -Denies chest pain -Likely due to her CHF exacerbation at this time -Cannot entirely rule out ACS at this time but lower suspicion for now, follow repeat trop and TTE -Holding PRBC's ordered by ED for now to prevent further volume overload. If patient's symptoms would not improve after diuresis would reconsider PRBC's during her admission --No sign of focal consolidation on CXR, much more consistent with CHF exacerbation -Rest of care per CHF exacerbation (3) Elevated troponin: Plan: -Initial high sen trop elevated at 18 -Patient denies symptoms at rest, has been with exertion only -No acute ST segment or T-wave changes on ECG, does show new, narrow junctional rhythm compared to previous ECG's with Bifascicular blocks -Repeat 2 hour high sen trop in process -Follow TTE ordered on admission -Cardiology consult placed (4) Diabetic foot ulcer: Plan: -Patient with progressive right heel diabetic ulcer since last admission in January -Follows with Wound clinic, per their last note on 03/13/22, they ordered an MRI of the right heel due to concerns for progression of ulcer -Per review of last admission her ulcer appears to have progressed -Will start patient on Daptomycin and Cefepime for now -Will obtain culture of the wound -Will obtain ESR, CRP, and procal -Will obtain Xray of the right heel to start, if workup is concerning will obtain right foot MRI while admitted -Wound consult placed (5) Left arm pain: Plan: -Patient experienced approximately 20 sec of left biceps muscle pain radiating down her arm which woke her up from sleep at 0300 today -No other radiation of the pain, has experienced this pain before -Unsure of the etiology at this time, could be musculoskeletal from previous left rotator cuff repair, but can't rule out cardiac etiology at this time -Continue cardiac workup, repeat ECG and trop with recurring symptoms -PRN tylenol for pain for now (6) Anemia: Plan: -Hgb currently at 7.5, down from 8.2 as of 01/25 but has been in the 7-8's since last admission -Previously diagnosed with CHUY and B12 deficiency -No recent signs/symptoms of bleeding, not on anticoagulation -Is on PO Iron, B12, and folate, continue for now -Was ordered 1 unit PRBC's by the ED, holding for now -If patient's symptoms do not improve with IV diuresis can reconsider transfusion, but will hold transfusion for now to prevent further exacerbation of CHF (7) Leukocytosis: Plan: -Patient noted to have a leukocytosis of 15 with neutrophil predominance of 9 -While patient completed a 4 day course of prednisone yesterday, cannot rule out infectious etiology at this time -Continue abx and infectious workup per foot ulcer plan -Will follow UA to monitor for UTI, CXR negative for signs of PNA -Continue daptomycin and cefepime for now -Follow wound cultures (8) Dysphagia: Plan: -Will keep on clears with nectar thick consistency for now -Aspiration precautions -Speech consult placed -Continue daily PPI (9) Uncontrolled diabetes mellitus with hyperglycemia, with long-term current use of insulin: Plan: -Monitor BSG ACHS, goal is 110-140 -Will reduce basal insulin from 54 units lantus BID to 30 BID for now with decreased oral intake -Start CF of 30 with CR of 15 for now -Clear liquid diet -Pharmacy glycemic consult (10) Hypertension: Plan: -Stable -Continue amlodipine (11) Hypercholesteremia: Plan: -Continue statin (12) Hypothyroidism: Plan: -Continue levothyroxine Plan The patient was discussed with Dr. Rodriguez at the time of the admission History of Present Illness Chief Complaint: SOB, left arm pain Primary Care Provider: Natali Langston DO Ibrahim is a 62 y/o female with a PMHx of DM, diabetic ulcers, HFrEF, CKD, iron deficiency anemia, dysphagia, GERD, HTN, HLD, and hypothyroidism who presented to the [facility] ED via EMS with complaints of SOB and left arm pain. She remained stable in the ED. Labs were significant for a leukocytosis of 15 with left shift of 9.0, Hgb 7.5 (down from 8.2 as of 01/25), Cr of 2.09 (baseline is near 1.8), BUN of 34, bicarb of 19, alk phos of 113, initial high sen trop of 18, BNP of 578 (up from 67 as of 01/28). Chest xray was read as Cardiomegaly and mild pulmonary edema.. ECG shows a junctional rhythm without acute ST segment or T- wave changes. Prior to admission the patient was given a dose of Ceftriaxone, 250 mL NSS, ordered one unit of PRBC's. She was last admitted to [facility] from 01/12-01/16 for her right diabetic heel ulcer, dysphagia, and worsening chronic anemia. For her right heel ulcer, outpatient wound cultures were found to have grown MSSA in late December. She was treated initially with IV antibiotics and eventually discharged on a 10 day course of Keflex without outpatient wound clinic follow-up. She was evaluated by GI for dysphagia. Last colonoscopy in February 2022 showed one 3 mm rectal polyp which was resected diverticulosis, and non-bleeding internal hemorrhoids. GI recommended starting BID PPI and outpatient EGD on discharge. Her workup for chronic anemia was consistent with Iron deficiency, B12 deficiency, and low- normal folate level. She was started on PO Iron, B12, and folate prior to discharge. At the time of the exam the patient was sitting in the bedside chair in no acute distress. She states that she has been experiencing progressive SOB, TOLBERT, orthopnea, and non-productive cough over the past 2-3 months. When asked, she states that she started developing these symptoms on her last admission but they are significantly worse over the past week. She states that she feels as though she has been gaining weight and is more swollen recently. She has been taking her 1mg PO Bumex daily and trying to limit her sodium intake. This am she states that she experienced approximately 20 seconds of left arm pain. She described the pain as sharp/Stabbing, starting in the left biceps muscle and radiating down her left arm. She denies chest pain, shoulder/jaw, neck pain, or pain in the back or other upper extremity. She states that she is unsure if this pain is related to her left rotator cuff repair previously but confirms that she has experienced this pain before. She denies pain/TOLBERT/SOB at rest but states she has been significantly TOLBERT with minimal effort recently. She has been so swollen that she has been unable to bend over to care for her right heel ulcer. Regarding her chronic dysphagia, she continues to experience dysphagia with solids but can tolerate liquids. She has had a few episodes of aspiration in the recent past and has not been able to see GI outpatient yet. She has been unable to get the MRI of the right heel ordered by the wound clinic as she does not have a ride. She denies recent fever, chills, chest pain, hemoptysis, abd pain, nausea, vomiting, diarrhea, dysuria, hematuria, melena, bloody BM's, and recent trauma. She is a full code and would want her brother to make medical decisions for her if she cannot make them herself. Please refer to Dr. Rodriguez's attestation for any changes to the treatment plan Allergies Allergy/AdvReac Type Severity Reaction Status Date / Time amoxicillin Allergy Intermediate hives Verified 03/13/23 13:02 dextromethorphan Allergy Intermediate Hives Verified 03/13/23 13:02 [From NyQuil] doxylamine [From NyQuil] Allergy Intermediate Hives Verified 03/13/23 13:02 latex Allergy Intermediate RASH Verified 03/13/23 13:02 Sulfa (Sulfonamide Allergy Intermediate RASH Verified 03/13/23 13:02 Antibiotics) clarithromycin AdvReac Intermediate HEART RACES Verified 03/13/23 13:02 Umesh's multigrain bread Allergy Intermediate Hives Uncoded 03/13/23 13:02 Home Medications Medication Instructions Recorded Confirmed Type amitriptyline 50 mg tablet 100 mg PO HS 12/06/17 03/19/23 History fluticasone propionate 50 1 spray intranasal QAM 03/10/19 03/19/23 History mcg/actuation nasal spray,suspension levothyroxine 175 mcg tablet 175 mcg PO QAM 03/10/19 03/19/23 History (Synthroid) atorvastatin 80 mg tablet 80 mg PO HS 02/19/20 03/19/23 History loratadine 10 mg tablet 10 mg PO DAILY PRN Allergy Symptoms 01/19/21 03/19/23 History albuterol sulfate 90 mcg/actuation 1 - 2 puff inhalation QID PRN 06/20/21 03/19/23 History aerosol inhaler ASTHMA pen needle, diabetic 32 gauge x 06/20/21 03/13/23 History " (BD Ultra-Fine Siria Pen Needle) blood sugar diagnostic (FreeStyle 06/29/21 03/13/23 History Precision Perico Strips) flash glucose scanning reader 06/29/21 03/13/23 History (FreeStyle Davy 14 Day Volcano) flash glucose sensor (FreeStyle 06/29/21 03/13/23 History Davy 14 Day Sensor kit) lancets 30 gauge (OneTouch Delica 06/29/21 03/13/23 History Lancets) cholecalciferol (vitamin D3) 50 50 mcg PO QAM 02/09/22 03/19/23 History mcg (2,000 unit) capsule dulaglutide 1.5 mg/0.5 mL 1.5 mg subcut WK 07/25/22 03/19/23 History subcutaneous pen injector (Trulicity) dapagliflozin propanediol 5 mg 5 mg PO QAM #90 tabs 10/19/22 03/19/23 Rx tablet (Farxiga) amlodipine 2.5 mg tablet 2.5 mg PO BID #60 tabs 01/16/23 03/19/23 Rx cyanocobalamin (vitamin B-12) 1,000 mcg PO DAILY #30 tabs 01/16/23 03/19/23 Rx 1,000 mcg tablet ferrous sulfate 325 mg (65 mg 325 mg PO DAILY #30 tabs 01/16/23 03/19/23 Rx iron) tablet folic acid 1 mg tablet 1,000 mcg PO DAILY #30 tabs 01/16/23 03/19/23 Rx melatonin 3 mg tablet 3 mg PO HS #30 tabs 01/16/23 03/19/23 Rx insulin aspart U-100 100 unit/mL 0 sliding scale dose subcut TIDM 01/25/23 03/19/23 History (3 mL) subcutaneous pen (Novolog FlexPen U-100 Insulin aspart) insulin glargine 100 unit/mL 54 unit subcut BID 01/25/23 03/19/23 History subcutaneous solution (Lantus U-100 Insulin) bumetanide 1 mg tablet 1 mg PO QAM #90 tabs 03/07/23 03/19/23 Rx albuterol sulfate 90 mcg/actuation 2 puff inhalation QID PRN wheezing 03/19/23 03/19/23 History aerosol inhaler ipratropium 20 mcg-albuterol 100 2 puff inhalation BID 03/19/23 03/19/23 History mcg/actuation mist for inhalation (Combivent Respimat) omeprazole 20 mg capsule,delayed 20 mg PO DAILY 03/19/23 03/19/23 History release Past Med/Surg History Medical History (Updated 03/19/23 @ 11:37 by Alan Hauser PA-C) Pseudomonas infection History of anesthesia reaction woke up during shoulder arthroscopy Peritonsillar abscess recent admission @ [facility] 01/29/22 for this--per pt has finished all antibiotics for this, no further issues at this time Chronic kidney disease, stage III (moderate) SOB (shortness of breath) RBBB Hypoxia Hyperglycemia due to type 2 diabetes mellitus Pneumonia due to COVID-19 virus COVID-19 hx of in 2019--per pt was hospitalized for COVID--states no symptoms currently Bifascicular block Foot drop LEFT Chronic back pain Osteoarthritis Hx of irritable bowel syndrome Cataract Bilateral Umbilical hernia Hiatal hernia PTSD (post-traumatic stress disorder) History of diverticulitis Tear of medial meniscus of right knee, current Morbid obesity with BMI of 50.0-59.9, adult Diabetes mellitus with hyperglycemia, with long-term current use of insulin Neck pain Narrowing of C6-C7 with bone spurs. CAUSES NUMBNESS IN LEFT ARM GERD (gastroesophageal reflux disease) Depression Anxiety Hyperlipidemia Hypertension Asthma COLD WEATHER FLARES UP/DENIES RECENT FLARE UP/ALBUTEROL ONLY PRN History of migraine Hyperosmolar hyponatremia Fibromyalgia Hypothyroidism Surgical History History of repair of right rotator cuff History of repair of left rotator cuff History of repair of ACL L S/P rotator cuff repair History of arthroscopy of right shoulder History of dilatation and curettage History of repair of ACL R History of esophagogastroduodenoscopy (EGD) History of colonoscopy History of D&C Family History Grandfather Diabetes Mother Myocardial infarction Heart disease Tobacco abuse Hx of CABG Family/Other Family history of diabetes mellitus Brother Family history of diabetes mellitus Father Aortic aneurysm Grandmother (Paternal) Cerebral aneurysm Stroke Other Family history of colon cancer in mother Social History Smoking Status: Never smoker Second Hand Exposure: Yes; Do You Dip or Chew Tobacco: No; Hx Alcohol Use: No Hx Substance Use: No Preferred Language: Mongolian Communication Ability: Effective Visual Impairment: No Limitations Cage Clerk Required: No Beliefs That Will Affect Care: None marital status: Current Living Situation: Alone Feels Safe at Home: Yes Assistive Devices: Walker Physical Exam 2 Physical Exam: Physical Exam: General: In no acute distress, stated age, morbidly obese, poor hygiene, non- toxic appearing HEENT: Normocephalic, atraumatic, no scleral icterus, pupils around round, symmetrical, and reactive to light, moist mucus membranes, trachea midline, no thyromegaly Chest/Pulm: No respiratory distress, symmetrical chest expansion, auscultation difficult with body habitus but patient with decreased breath sounds in the BL lower lung field with crackles in all other lung doss. Cardiac: RRR, 4/6 systolic murmur noted Abdomen: Negative for ascites and bruising, normoactive bowel sounds, soft, non-tender to palpation throughout Musculoskeletal: Symmetrical and without signs of acute trauma, upper and lower extremities with full ROM, no atrophy, spasticity, or flaccidity Extremities: Radial, dorsalis pedis, and posterior tibial pulses are intact and symmetrical, BL LE's are firm due to significant edema Skin: Pale, patient with worsening right heel ulcer with increased erythema and skin breakdown compared to images on last admission, see image below, no current draining Neuro: Alert and oriented to person, place, month, year, and president, no focal defects, no tremors noted Psych: No acute distress, calm and cooperative during the exam Results & Data Results & Data Vital Signs (Past 12 Hours) Vital Signs Temp Pulse Resp BP Pulse Ox O2 Del Method 03/19/23 06:19 78 03/19/23 06:12 78 99 Room Air 03/19/23 05:49 99 Room Air 03/19/23 05:49 Room Air 03/19/23 05:49 36.6 C 77 23 164/76 H 100 Room Air Laboratory Results Abnormal lab results 03/19/23 03/19/23 03/19/23 Range/Units 05:55 07:01 10:51 WBC 15.37 H (4.8-10.8) K/ul RBC 2.89 L (4.20-5.40) M/uL Hgb 7.5 L (12.0-16.0) g/dl Hct 25.0 L (37.0-47.0) % MCHC 30.0 L (32.0-36.0) g/dL RDW Std Deviation 56.8 H (36.4-46.3) fL RDW Coeff of Sylvia 18.0 H (11.5-14.5) % Plt Count 431 H (130-400) K/uL Neut # (Auto) 9.05 H (1.40-6.50) K/uL Lymph # (Auto) 4.92 H (1.20-3.40) K/uL [place] # (Auto) 1.04 H (0.11-0.59) K/uL ESR 86 H (0-30) mm/hr Sodium 135 L (136-145) mmol/L Carbon Dioxide 19 L (21-32) mmol/L BUN 34 H (6-23) mg/dl Creatinine 2.09 H (0.6-1.2) mg/dl Glucose 176 H (70-99(Fasting)) mg/dl Calcium 8.5 L (8.6-10.3) mg/dl Alkaline Phosphatase 113 H (34-104) U/L Troponin I High Sens 18.7 H (0-14) pg/ml B-Natriuretic Peptide 578 H (0-100) pg/ml Albumin 3.0 L (3.4-5.0) gm/dl Globulin 4.1 H (2.5-4.0) gm/dl Albumin/Globulin Ratio 0.7 L (0.9-2) Crossmatch See Detail Diagnostic Findings Chest X-Ray 03/19/23 06:00 XR chest 1V not portable CLINICAL HISTORY: Shortness of Breath TECHNIQUE: Single frontal radiograph of the chest was obtained. Comparison: Comparison is made to chest and abdomen radiograph 01/25/2023 FINDINGS: Exam is limited by underpenetration. Cardiomegaly is noted. The aortic arch is calcified. Prominence and cephalization of the vasculature is seen. No evidence of pleural effusion or pneumothorax. IMPRESSION: Cardiomegaly and mild pulmonary edema. ACT 112: Negative or not required by law. Electronically signed by: Juan Ramon Bejarano M.D. 03/19/2023 7:06 AM ECG Additional Comments: Sinus rhythm vs. Junctional rhtyhm Left anterior fascicular block Right bundle branch block Left ventricular hypertrophy with repolarization abnormality Abnormal ECG When compared with ECG of 11-JAN-2023 11:25, P waves no longer readily apparent Code Status & VTE Plan Code Status Full code VTE Prophylaxis Plan VTE Prophylaxis will be ordered: Yes Supervising Physician Co-Signing Physician Notes Patient seen and examined, chart reviewed, case discussed with Alan Hauser PA-C and I agree with the assessment and plan as above except as otherwise noted Labs and images reviewed 60-year-old female with a past medical history of morbid obesity, hyperlipidemia, fibromyalgia, CKD, type II DM, hyperlipidemia, GERD, depression, hypothyroidism who presents withworsening shortness of breath and downtrending hgb. Pressure ulcer of the R heel chronically poor healing. She is not on blood thinners. Had L flank pain on admission and some concern for UTI, was given empiric Rocephin. Mild leukocytosis, ulcer without demarkated erythema and cellulitic appearance. Suspect leukocytosis is due to recent steroid use. CXR shows mild pulmonary edema and cardiomegaly. Multifactorial shortness of breath and general decline. DDx includes congestive failure with evidence of fluid retention and pulmonary edema, progressive anemia which has been downtrending slowly since 2021 although has ranged from 7.59.4 since August 2022 and a 7.5 on admission and is borderline microcytic. She was recently diagnosed on last admission with iron deficiency anemia and placed on iron sulfate. Last colonoscopy 2021 with internal hemorrhoids, rectal polyp, diverticulosis without evidence of malignancy. Was pending outpatient EGD for dysphagia. Gradually downtrending hemoglobin but with evidence of volume overload including radiographic edema and elevated BNP from baseline. While hemoglobin is gradually downtrending would treat volume overload first, and continue to trend hemoglobin. Slightly liberalized hemoglobin goal in the setting of demand ischemia and CHF/CAD to goal of 8.0 is reasonable; however she is not hemodynamically unstable and confusion is not emergent; will diurese as noted. If patient is doing well and does not require transfusion, following diuresis reasonable to add Venofer 300 mg x 3 while inpatient which she has never received before. Discussed with patient at bedside who is in agreement with plan, no additional questions or concerns. Lungs are diminished with basilar crackles which partially but do not completely clear on deep inspiration. agree with assessment and plan above PG Care Time/CCT Total # of Minutes Spent Total Time Spent with Patient: Total time spent is greater than 50% in coordination of care (as documented) at patient's floor/unit and/or counseling patient: Coding [place] [address] INT INP/OBS CARE 3/75MIN Patient Type Established Medical Decision Making High Complexity Diagnoses CHF exacerbation I50.9 SOB (shortness of breath) R06.02 Elevated troponin R79.89 Diabetic foot ulcer E11.621; L97.509 Left arm pain M79.602 Anemia D64.9 Leukocytosis D72.829 Dysphagia, unspecified type R13.10 Dysphagia type: unspecified Uncontrolled diabetes mellitus with hyperglycemia, with long-term current use of insulin E11.65; Z79.4 Essential hypertension I10 Hypertension type: essential hypertension Hypercholesteremia E78.00 Hypothyroidism E03.9 (8) Dysphagia Dysphagia type: unspecified Qualified Code(s): R13.10 - Dysphagia, unspecified (10) Hypertension Hypertension type: essential hypertension Qualified Code(s): I10 - Essential (primary) hypertension
[2023-03-19] MEDS ORDERED: CARBOHYDRATES FOR HYPOGLYCEMIA PO PRN (11:05)
[2023-03-19] MEDS ORDERED: GLUCOSE 10 TAB/TUBE PO PRN (11:05)
[2023-03-19] MEDS ORDERED: GLUCOSE 40% GEL 15 GM TUBE PO PRN (11:05)
[2023-03-19] MEDS ORDERED: GLUCAGON FOR INJ 1 MG VIAL SQ PRN (11:05)
[2023-03-19] MEDS ORDERED: DEXTROSE 50% 50 ML SYRINGE IV PRN (11:05)
[2023-03-19] MEDS ORDERED: PHARMACY GLYCEMIC MGMT CONSULT PRN (11:05)
[2023-03-19] MEDS ORDERED: CEFEPIME 20 ML IV STA (11:32)
[2023-03-19 11:36] LABS: C Reactive Protein < 0.50 mg/dl (0-0.5)
[2023-03-19 11:42] LABS: Troponin I High Sensitivity 21.1 pg/ml (0-14)
--- NOTE | 2023-03-19 12:08 | XRay Report ---
XR calcaneus RT min 2V CLINICAL HISTORY: worsening right heel ulcer COMPARISON STUDY: Right foot radiograph 01/11/2023. FINDINGS: Large skin ulceration again noted at the plantar surface of the heel measuring approximatel y 5.7 cm. No underlying bony destruction to suggest an osteomyelitis. No fracture or dislocation with in the calcaneus. Vascular calcifications are noted. No radiopaque foreign bodies. IMPRESSION: Large skin ulceration again noted at the plantar surface of the heel. No underlying bony destruction to suggest an osteomyelitis. ACT 112: Negative or not required by law. Electronically signed by: Paco Contreras M.D. 03/19/2023 12:07 PM
[2023-03-19] MEDS: DAPTOmycin 375 MG in SYRINGE 0 ML IV SCH (13:18)
[2023-03-19 13:35] LABS: Influenza A virus by PCR Negative (Neg); Influenza B virus by PCR Negative (Neg); RSV by PCR Negative (Neg); SARS CoV2 RNA(COVID-19) Ceph NEGATIVE (Negative)
--- NOTE | 2023-03-19 15:13 | XCELERA ---
[id number] \\[id number]
--- NOTE | 2023-03-19 18:43 | Cardiology Consultation ---
Date of Consultation March 19, 2023 Assessment & Plan (1) SOB (shortness of breath): (2) (HFpEF) heart failure with preserved ejection fraction: (3) Asthma: (4) Anemia: (5) Chronic kidney disease, stage III (moderate): (6) Morbid obesity with BMI of 60.0-69.9, adult: (7) Junctional rhythm: Plan 62-year-old woman with history of asthma, morbid obesity, and chronic kidney disease admitted with subacute worsening of dyspnea on exertion, orthopnea, PND, and leg edema. She does appear hypervolemic on exam, but as noted I could find no specific history of prior heart failure exacerbations or cardiomyopathy. Likely, addition of prednisone to her regimen recently may have exacerbated a tendency to volume retention and resulted in some degree of heart failure with preserved ejection fraction. Also, junctional rhythm/blunted HR response may play a role in her current presentation of HFpEF. She is on bumetanide 1 mg daily as an outpatient, agree with bumetanide 1 mg IV twice daily for inpatient diuresis. Given her elevated creatinine, even this could be below her diuretic threshold and she may require escalating doses (2 mg or 3 mg IV bumetanide). Follow input/output, electrolytes, and renal function. Daily weights may not be helpful given the small percentage of body weight that diuresis or fluid accumulation would amount to, which may be within the range of measurement error. Exam and chest x-ray actually appear fairly benign, her hypervolemia is primarily right-sided. No evidence of ongoing bronchospasm. Troponin minimally elevated and flat, no evidence of ongoing ischemia. Persistent junctional still appearing rhythm on telemetry. Adequate heart rate currently. Avoid negative chronotropes (not on any at baseline or currently). If HR remains excessively blunted may ultimately benefit from pacemaker. Will continue to follow. History of Present Illness Reason for Consultation: CHF exacerbation, bifascicular block. Requesting Physician: Eladio Rodriguez MD Attending Physician: Eladio Rodriguez MD History of Present Illness 62-year-old woman with history of morbid obesity (BMI 65), diabetes mellitus, iron deficiency anemia (hemoglobin 7.5), chronic kidney disease (creatinine 2.09), asthma, and other medical problems was admitted earlier today (03/19/2023) for progressive dyspnea, orthopnea, PND, and leg edema. Although her admission H&P mentions HFrEF, I could find no documentation to support this. She was seen in 2013 for preoperative cardiac evaluation and did have RBBB/LAFB on ECG, but there was no mention of heart failure or reduced systolic function. Family and community medicine notes from [place] also do not mention heart failure or cardiomyopathy. Echocardiogram in 2018 and currently both showed normal LV systolic function. She has had a gradually progressive anemia and concurrent with this notes worsening dyspnea on exertion. She states that her weight has been stable, but she had noted leg edema recently and began to sleep in a chair (which she had done at times in the past, but not routinely). Adjustments were made in her inhaled medication regimen and prednisone was initiated, but she continued to feel worse and presented to the ER. She did have transient left arm pain which lasted only about 1/2-minute. Aside from this, no arm or chest discomfort. No palpitations, presyncope, or syncope. At the time of my evaluation, she was comfortable sitting upright with supplemental oxygen at rest. Allergies Allergy/AdvReac Type Severity Reaction Status Date / Time amoxicillin Allergy Intermediate hives Verified 03/13/23 13:02 dextromethorphan Allergy Intermediate Hives Verified 03/13/23 13:02 [From NyQuil] doxylamine [From NyQuil] Allergy Intermediate Hives Verified 03/13/23 13:02 latex Allergy Intermediate RASH Verified 03/13/23 13:02 Sulfa (Sulfonamide Allergy Intermediate RASH Verified 03/13/23 13:02 Antibiotics) clarithromycin AdvReac Intermediate HEART RACES Verified 03/13/23 13:02 Arnsh[employer]'s multigrain bread Allergy Intermediate Hives Uncoded 03/13/23 13:02 Home Medications Medication Instructions Recorded Confirmed Type amitriptyline 50 mg tablet 100 mg PO HS 12/06/17 03/19/23 History fluticasone propionate 50 1 spray intranasal QAM 03/10/19 03/19/23 History mcg/actuation nasal spray,suspension levothyroxine 175 mcg tablet 175 mcg PO QAM 03/10/19 03/19/23 History (Synthroid) atorvastatin 80 mg tablet 80 mg PO HS 02/19/20 03/19/23 History loratadine 10 mg tablet 10 mg PO DAILY PRN Allergy Symptoms 01/19/21 03/19/23 History albuterol sulfate 90 mcg/actuation 1 - 2 puff inhalation QID PRN 04/11/22 01/08/24 History aerosol inhaler ASTHMA pen needle, diabetic 32 gauge x 06/20/21 03/13/23 History 5/32" (BD Ultra-Fine Siria Pen Needle) blood sugar diagnostic (FreeStyle 06/29/21 03/13/23 History Precision Perico Strips) flash glucose scanning reader 06/29/21 03/13/23 History (FreeStyle [place] [address] [place]) flash glucose sensor (FreeStyle 06/29/21 03/13/23 History Davy 14 Day Sensor kit) lancets 30 gauge (OneTouch Delica 06/29/21 03/13/23 History Lancets) cholecalciferol (vitamin D3) 50 50 mcg PO QAM 02/09/22 03/19/23 History mcg (2,000 unit) capsule dulaglutide 1.5 mg/0.5 mL 1.5 mg subcut WK 07/25/22 03/19/23 History [facility] dapagliflozin propanediol 5 mg 5 mg PO QAM #90 tabs 10/19/22 03/19/23 Rx tablet (Farxiga) amlodipine 2.5 mg tablet 2.5 mg PO BID #60 tabs 01/16/23 03/19/23 Rx cyanocobalamin (vitamin B-12) 1,000 mcg PO DAILY #30 tabs 01/16/23 03/19/23 Rx 1,000 mcg tablet ferrous sulfate 325 mg (65 mg 325 mg PO DAILY #30 tabs 01/16/23 03/19/23 Rx iron) tablet folic acid 1 mg tablet 1,000 mcg PO DAILY #30 tabs 01/16/23 03/19/23 Rx melatonin 3 mg tablet 3 mg PO HS #30 tabs 01/16/23 03/19/23 Rx insulin aspart U-100 100 unit/mL 0 sliding scale dose subcut TIDM 01/25/23 03/19/23 History (3 mL) subcutaneous pen (Novolog FlexPen U-100 Insulin aspart) insulin glargine 100 unit/mL 54 unit subcut BID 01/25/23 03/19/23 History subcutaneous solution (Lantus U-100 Insulin) bumetanide 1 mg tablet 1 mg PO QAM #90 tabs 03/07/23 03/19/23 Rx albuterol sulfate 90 mcg/actuation 2 puff inhalation QID PRN wheezing 03/19/23 03/19/23 History aerosol inhaler ipratropium 20 mcg-albuterol 100 2 puff inhalation BID 03/19/23 03/19/23 History mcg/actuation mist for inhalation (Combivent Respimat) omeprazole 20 mg capsule,delayed 20 mg PO DAILY 03/19/23 03/19/23 History release Patient History Medical History (Updated 03/19/23 @ 19:22 by Dakota Graham MD) Pseudomonas infection History of anesthesia reaction woke up during shoulder arthroscopy Peritonsillar abscess recent admission @ [facility] 01/29/22 for this--per pt has finished all antibiotics for this, no further issues at this time Chronic kidney disease, stage III (moderate) SOB (shortness of breath) RBBB Hypoxia Hyperglycemia due to type 2 diabetes mellitus Pneumonia due to COVID-19 virus COVID-19 hx of in 2019--per pt was hospitalized for COVID--states no symptoms currently Bifascicular block Foot drop LEFT Chronic back pain Osteoarthritis Hx of irritable bowel syndrome Cataract Bilateral Umbilical hernia Hiatal hernia PTSD (post-traumatic stress disorder) History of diverticulitis Tear of medial meniscus of right knee, current Morbid obesity with BMI of 50.0-59.9, adult Diabetes mellitus with hyperglycemia, with long-term current use of insulin Neck pain Narrowing of C6-C7 with bone spurs. CAUSES NUMBNESS IN LEFT ARM GERD (gastroesophageal reflux disease) Depression Anxiety Hyperlipidemia Hypertension Asthma COLD WEATHER FLARES UP/DENIES RECENT FLARE UP/ALBUTEROL ONLY PRN History of migraine Hyperosmolar hyponatremia Fibromyalgia Hypothyroidism Surgical History History of repair of right rotator cuff History of repair of left rotator cuff History of repair of ACL L S/P rotator cuff repair History of arthroscopy of right shoulder History of dilatation and curettage History of repair of ACL R History of esophagogastroduodenoscopy (EGD) History of colonoscopy History of D&C Family History Grandfather Diabetes Mother Myocardial infarction Heart disease Tobacco abuse Hx of CABG Family/Other Family history of diabetes mellitus Brother Family history of diabetes mellitus Father Aortic aneurysm Grandmother (Paternal) Cerebral aneurysm Stroke Other Family history of colon cancer in mother Social History Smoking Status: Never smoker Second Hand Exposure: Yes; Do You Dip or Chew Tobacco: No; Hx Alcohol Use: No Hx Substance Use: No Preferred Language: Nigerien Communication Ability: Effective Visual Impairment: No Limitations Gage Maker Required: No Beliefs That Will Affect Care: None marital status: Current Living Situation: Alone Other Information That Helps Us Care for You: No Feels Safe at Home: Yes Assistive Devices: Walker Physical Exam Physical Exam: Adult white female in no acute distress. Afebrile. BP mildly hypertensive. Pulse 70 bpm and regular. Respirations 16 and unlabored. Skin: no ecchymoses or generalized lesions. Significant right heel ulcer currently bandaged. HEENT: unremarkable. Neck: JVP elevated to the angle of the jaw 90 degrees, no carotid bruits. Lungs: Positive wheezing. No accessory muscle use. Cardiac: regular rhythm, normal S1 and intact aortic closure sound, 2/6 basal systolic ejection murmur and 2/6 apical holosystolic murmur. No diastolic murmur. Abdomen: benign. Extremities: 1+ pretibial edema, pulses intact, excellent capillary refill (1 to 2 seconds) Neurologic: normal affect and conversation, nonfocal. Results & Data Vital Signs (Past 12 Hours) Vital Signs Temp Pulse Pulse Resp BP Pulse Ox O2 Del Method 03/19/23 18:35 97.7 F 70 16 150/69 H 98 Room Air 03/19/23 17:44 97.7 F 70 16 170/80 H 99 Room Air 03/19/23 15:06 68 03/19/23 13:26 97.9 F 71 22 175/78 H 98 Room Air Laboratory Results Troponin 20, 18, 21. BNP 578 (67 last year). Sodium 135, normal potassium, BUN 34, creatinine 2.09. WBC 15.37, hemoglobin 7.5, platelet count 431,000. Diagnostic Findings ECG on admission showed sinus rhythm versus junctional at 77 bpm. Left anterior fascicular block and right bundle branch block. LVH with repolarization abnormality. Compared with 01/11/2023 study, P waves no longer readily apparent. Echocardiogram showed EF 65 to 70% with moderate LVH, mild /mild to moderate MR/moderate TR/mild pulmonary hypertension. Chest x-ray showed mild cardiomegaly and increased markings at the bases secondary to obesity, costophrenic angles are sharp, I do not see any significant pulmonary edema. PG Care Time/CCT Total # of Minutes Spent Total Time Spent with Patient: Total time spent is greater than 50% in coordination of care (as documented) at patient's floor/unit and/or counseling patient: Coding Level of Care Code 75727 INT INP/OBS CARE 75MIN Diagnoses SOB (shortness of breath) R06.02 (HFpEF) heart failure with preserved ejection fraction I50.30 Asthma J45.909 Anemia D64.9 Chronic kidney disease, stage III (moderate) N18.30 Morbid obesity with BMI of 60.0-69.9, adult E66.01; Z68.44 Junctional rhythm I49.8
[2023-03-19] MEDS: BUMETANIDE 1 MG in SYRINGE 0 ML IV SCH (19:30)
[2023-03-19] MEDS ORDERED: ATORVASTATIN 40 MG TAB PO SCH (21:00)
[2023-03-19] MEDS: AMITRIPTYLINE HCL 100 MG TAB PO SCH (21:16)
[2023-03-19] MEDS: LANTUS PER UNIT CHARGE SQ SCH (21:17)
[2023-03-19] MEDS: INSULIN ASPART PER UNIT CHARGE SC SCH (21:17)
[2023-03-19] MEDS: amLODIPine BESYLATE 5 MG TAB PO SCH (21:18)
[2023-03-19] MEDS: CEFEPIME 2,000 MG in SYRINGE 0 ML IV SCH (22:56)
[2023-03-20] MEDS: INSULIN ASPART PER UNIT CHARGE SC SCH ×6 (00:20→20:37)
[2023-03-20 01:00] LABS: Appearance Urine Clear (Clear); Bacteria Urine Automated 1+ (Negative); Bilirubin Urine Negative (Negative); Blood Urine Trace (Negative); Color Urine Yellow; Epithelial Cell Urine Auto >30 /lpf (0-5); Glucose Urine UA 3+ (Negative); Ketones Urine Negative (Negative); Leukocyte Esterase Urine Negative (Negative); Nitrite Urine Negative (Negative); Protein Urine 3+ (Negative); RBC Urine Automated 0-4 /hpf (0-4); Specific Gravity Urine 1.018 (1.000-1.030); Urobilinogen Urine Negative (Negative); pH Urine 5.5 (4.5-7.5)
--- OUTSIDE RECORDS SUMMARY | 2023-03-20 01:28 | External Medical Summary | Continuity of Care Document ---
Author Name Unknown Organization [address] Address [address] [place] [address] [place], [place] [id number] Care Team Providers Care Supervisor Knitting Name Role Phone Natali Langston Primary Care Physician [phone] Encounter [facility] [id number] Date(s): 03/15/23 - 03/15/[address] [place] [facility] [address], [address] [place] [address] [place] [phone] Encounter Diagnosis Asthma(Discharge Diagnosis) - 03/15/23 Acute asthma exacerbation(Discharge Diagnosis) - 03/15/23 Discharge Disposition: Home or Self Care Attending Physician: DO Langston Kristen M Referring Physician: DO Langston Kristen M Allergies, Adverse Reactions, Alerts Substance Reaction Severity Status amoxicillin hives Active clarithromycin 1 Active Allergy Not found in Search 2 hives Active sulfa drugs turned red, itchy on lower arms and legs Active Latex rash Active NyQuil Cold/Flu Relief rash Activ e 1Palpitations 2Arnold's 12 grain bread Assessment and Plan Extracted from: Title:TeleHealth Visit Note Author:SANDRA Pop Katy Marie Date:03/15/23 1.Asthma Problem isChronic Goal:maintenceand better control Data:_ Plan:add long acting inhaler twice daily to assist with better maintenance. Pt agreeable to use this inhaler twice daily and have close follow-up. 2.Acute asthma exacerbation Problem isAcute Goal:resolution Data:_ Plan:Start low dose prednisone for 4 days, with caution to watch her blood sugars and adjust her insulin as needed. Patient is agreeable to call back with questions or concerns. Immunizations Given and Recorded Vaccine Date Status Refusal Reason influenza virus vaccine, inactivated 12/13/22 Give n influenza virus vaccine, inactivated 01/04/21 Give n influenza virus vaccine, inactivated 10/24/16 Shyam rded influenza virus vaccine, inactivated 12/29/15 Shyam rded influenza virus vaccine, inactivated 1 12/10/14 Re corded SARS-CoV-2 (COVID-19) Ad26 vaccine 08/24/20 Record ed pneumococcal 23-valent vaccine 01/27/16 Given pneumococcal 23-valent vaccine 2 07/10/11 Recorded pneumococcal 23-valent vaccine 3 01/18/96 Recorded tetanus/diphtheria/pertuss, acel (Tdap) 4 07/10/11 Recorded diphtheria-tetanus toxoids, DT (Ped) 5 11/03/98 Re corded 1Result Comment: [12/31/2014] given at [facility] 2Result Comment: 2021-07-19: Historical information-source unspecified 3Result Comment: 2021-07-19: Historical information-source unspecified 4Result Comment: 2021-07-19: Historical information-source unspecified 5Result Comment: 2021-07-19: Historical information-source unspecified Medications albuterol CFC free 90 mcg/inh MDI Start: 03/15/23 9:08:00 EST, 2 puff, inhaled, qid, Disp# 1 each, Refills: 3, PRN: as needed for wheezing, Pharmacy: [facility] Start Date: 03/15/23 Stop Date: 07/13/23 Status: Ordered BD needle Ultra-Fine Pen Siria 32G x 4mm Start: 03/06/22 10:31:00 EST, See Instructions, Disp# 360 each, Refills: 3, use qid with insulin icd 10 E11.9, Pharmacy: [facility] Start Date: 03/06/22 Status: Ordered bumetanide 0.5 mg oral tablet Start: 10/19/21 11:36:00 EDT, 1 tab, PO, Daily Start Date: 10/19/21 Status: Ordered Combivent Respimat 20 mcg-100 mcg/inh inhalation aerosol Start: 03/15/23 9:00:00 EST, 2 puff, inhaled, bid, Disp# 1 each, Refills: 3, Pharmacy: [facility] Start Date: 03/15/23 Status: Ordered Elavil 50 mg oral tablet Start: 07/20/22 12:40:00 EDT, 2 tab, PO, qhs, Disp# 180 tab, Refills: 3, Pharmacy: [facility] Start Date: 07/20/22 Status: Ordered famotidine 20 mg oral tablet Start: 03/07/23 14:22:00 EST, See Instructions, Disp# 180 tab, Refills: 0, Take 1 tablet by mouth twice daily, Pharmacy: [facility] Start Date: 03/07/23 Status: Ordered famotidine 20 mg oral tablet Start: 02/24/22 11:33:00 EST, See Instructions, Disp# 180 tab, Refills: 2, Take 1 tablet by mouth twice daily, Pharmacy: [facility] Start Date: 02/24/22 Status: Ordered Farxiga 5 mg oral tablet TAKE 1 TABLET BY MOUTH ONCE DAILY Start Date: 10/19/21 Status: Ordered ferrous sulfate 325 mg (65 mg elemental iron) oral delayed release tablet Start: 03/07/23 14:22:00 EST, 1 tab, PO, bid, Disp# 60 tab, Refills: 3, Pharmacy: [facility] Start Date: 03/07/23 Stop Date: 07/05/23 Status: Ordered fluticasone 50 mcg/inh nasal spray Start: 12/03/16 9:42:19, See Instructions, Disp# 16, Refills: 2, 2 spray each nostril Daily,x30 day, Pharmacy: [address] Start Date: 12/03/16 Status: Ordered folic acid 1 mg oral tablet Start: 03/07/23 14:21:00 EST, 1 tab, PO, Daily, Disp# 30 tab, Refills: 2, Pharmacy: [facility] Start Date: 03/07/23 Stop Date: 06/05/23 Status: Ordered FreeStyle Davy 14 day sensor Start: 07/14/21 10:19:00 EDT, See Instructions, Disp# 2 kit, Refills: 11, USe Q 14 days, Pharmacy: [facility] Start Date: 07/14/21 Status: Ordered FreeStyle Davy 2 - 14 day reader Start: 10/31/22 16:42:00 EDT, See Instructions, Disp# 3 kit, Refills: 0, place q 2weeks Start Date: 10/31/22 Status: Ordered FreeStyle Davy 2 - 14 day sensor Start: 10/31/22 16:42:00 EDT, See Instructions, Disp# 3 kit, Refills: 0, place q 2 weeks Start Date: 10/31/22 Status: Ordered Levemir FlexPen 100 units/mL subcutaneous solution Start: 09/29/22 17:23:00 EDT, See Instructions, Disp# 30 mL, Refills: 3, inject 54 units in am and 43 units in pm, Pharmacy: [facility] Start Date: 09/29/22 Status: Ordered Lipitor 80 mg oral tablet Start: 07/14/22 9:57:00 EDT, 1 tab, PO, Daily, Disp# 90 tab, Refills: 3, Pharmacy: [facility] Start Date: 07/14/22 Stop Date: 07/09/23 Status: Ordered metFORMIN 1000 mg oral tablet Start: 10/06/22 11:23:00 EDT, See Instructions, Disp# 180 tab, Refills: 2, Take 1 tablet by mouth twice daily, Pharmacy: [facility] Start Date: 10/06/22 Status: Ordered Microlet Lancets [address] Start: 12/07/22 15:22:00 EDT, See Instructions, Disp# 100 each, Refills: 3, check blood sugars TID,Pharmacy: [facility] Start Date: 12/07/22 Status: Ordered NovoLOG FlexPen 100 units/mL injectable solution INJECT 30 UNITS UNDER THE SKIN IN THE MORNING, 45 UNITS WITH LUNCH, AND 40 UNITS IN THE EVENING. MAX DAILY DOSE OF 115 UNITS Start Date: 07/04/22 Status: Ordered omeprazole 20 mg oral delayed release capsule Start: 11/16/22 16:59:00 EDT, 1 cap, PO, Daily, Disp# 90 cap, Refills: 0, Pharmacy: [facility] Start Date: 11/16/22 Status: Ordered omeprazole 20 mg oral delayed release capsule Start: 03/07/23 14:22:00 EST, See Instructions, Disp# 90 cap, Refills: 0, Take 1 capsule by mouth once daily, Pharmacy: [facility] Start Date: 03/07/23 Status: Ordered One Touch Verio Test Strips Start: 12/07/22 15:21:00 EDT, See Instructions, Disp# 100 strip, Refills: 3, check blood sugars TID, Pharmacy: [facility] Start Date: 12/07/22 Status: Ordered predniSONE 10 mg oral tablet Start: 03/15/23 8:59:00 EST, 1 tab, PO, Daily, Disp# 4 tab, Refills: 0, Pharmacy: [facility] Start Date: 03/15/23 Stop Date: 03/19/23 Status: Ordered Santyl 250 units/g topical ointment Start: 08/25/22 11:29:00 EDT Start Date: 08/25/22 Status: Ordered Synthroid 175 mcg (0.175 mg) oral tablet Start: 07/14/22 9:57:00 EDT, 1 tab, PO, Daily, Disp# 90 tab, Refills: 3, Pharmacy: [facility] Start Date: 07/14/22 Status: Ordered triamcinolone 0.1% topical cream Start: 12/02/21 9:42:00 EDT, See Instructions, Disp# 30 g, Refills: 0, APPLY TOPICALLY TWICE DAILY,Pharmacy: [facility] Start Date: 12/02/21 Status: Ordered Trulicity Pen 0.75 mg/0.5 mL subcutaneous solution Start: 01/08/23 14:46:00 EDT, 0.75 mg =, subQ, q7days, Disp# 1 kit, Refills: 3, Pharmacy: [facility] Start Date: 01/08/23 Stop Date: 01/03/24 Status: Ordered Valtrex 1 g oral tablet Start: 08/03/22 13:15:00 EDT, 1 tab, PO, q12h, Disp# 6 tab, Refills: 0, Pharmacy: [facility] Start Date: 08/03/22 Stop Date: 08/06/22 Status: Ordered Problem List Condition Confirmation Course Effective Dates Status H ealth Status Informant Acute asthma Confirmed Active Acute URI Confirmed Active Dermatitis Confirmed Active Anemia Confirmed Active Anxiety Confirmed Active Arthritis Confirmed Active Atypical chest pain Confirmed Active BPPV (benign paroxysmal positional vertigo) Confirmed Active Pain of right tibia Confirmed Active Bronchitis Confirmed Active Cataract Confirmed Active Chronic renal insufficiency Confirmed Active Sinobronchitis Confirmed Active B12 deficiency Confirmed Active Generalized OA Confirmed Active Depression Confirmed Active Uncontrolled diabetes mellitus with hyperglycemia Confirmed Active Diabetic ulcer of foot with fat layer exposed Confirmed Active Diarrhea Confirmed Active Diastolic dysfunction Confirmed Active Diabetic nephropathy Confirmed Active Mouth sores Confirmed Active Upper respiratory disease Confirmed Active Dry skin Confirmed Active SOB (shortness of breath) Confirmed Active Edema Confirmed Active Rash Confirmed Active Fall at home Confirmed Active Fibromyalgia Confirmed Active Folate deficiency Confirmed Active Gastroenteritis Confirmed Active HBP (high blood pressure) Confirmed Active Headache Confirmed Active Hypothyroidism Confirmed Active Injury of left shoulder Confirmed Active Insulin-requiring or dependent type II diabetes mellitus Confirmed Active Iron deficiency anemia Confirmed Active Joint swelling Confirmed Active Kidney disease Confirmed Active Laceration of left great toe Confirmed Active Elevated WBC count Confirmed Active Asthma Confirmed Active Hyperlipidemia Confirmed Active Need for immunization against influenza Confirmed Active Diabetic neuropathy Confirmed Active Extremity numbness Confirmed Active Obesity Confirmed Active Tinea unguium Confirmed Active Open wound of right heel Confirmed Active Right knee pain Confirmed Active Panic attack Confirmed Active Physical deconditioning Confirmed Active Colon polyp Confirmed Active Post-menopause bleeding Confirmed Active Preventative health care Confirmed Active Protein deficiency Confirmed Active RBBB Confirmed Active Rhinitis Confirmed Active Secondary amenorrhea Confirmed Active Elevated serum creatinine Confirmed Active Left shoulder pain Confirmed Active Stomach pain Confirmed Active Situational stress Confirmed Active Stress at work Confirmed Active Tachycardia Confirmed Active Tinea pedis of left foot Confirmed Active Tobacco user Confirmed Active Post traumatic stress disorder (PTSD) Confirmed Active Trigger finger Confirmed Active Diabetic ulcer of heel Confirmed Active Decreased vision Confirmed Active Ambulatory dysfunction Confirmed Active Weight disorder Confirmed Active Diagnosis Diagnosis Type Effective Dates Health Status Clinical Service Informant Asthma Discharge Diagnosis 03/15/23 Acute asthma exacerbation Discharge Diagnosis 03/15/23 Procedures Procedure Date Related Diagnosis Body Site Status Care of open wound 1 11/2022 Comp leted COLONOSCOPY & POLYPECTOMY 2 02/13/22 Completed Eye examination 3 12/30/18 Complet ed MRI of lumbar spine 4 11/06/18 Com pleted Colonoscopy 5 12/06/16 Completed Chest x-ray 6 07/17/16 Completed Lumbar Spine X-ray 7 05/17/16 Comp leted Sacrum and sacroiliac joints X-ray 8 05/17/16 Completed Dilation and curettage of uterus 03/29/16 Completed Imaging,right tibia/fibula 01/27/16 Completed Mammogram 08/25/15 Completed Ultrasound 9 02/08/15 Completed Repair of rotator cuff of shoulder 07/22/13 Completed Arthroscopic repair of meniscus Completed 1weekly care due to diabetic wound 21 year due to fair prep 3No evidence of diabeti retinopathy. Best corrected visual acuity is 20/60 OD and 20/60 OS. Biomicroscopy reveals no iris nevascularization. Intraocular pressures were 18mmHg OD and 21mmHG OS. Dialated fundus exam was unremarkable. 41. Facet hypertrophy at L5-S1 most pronounced on the left resulting in moderate left-sided L5-S1 foraminal narrowing and mild left-sided lateral recess stenosis. No disc protrusion or central canal compromise at this level. 2. Mild degenerative changes L4-5. 5Diverticulosis in the sigmoid colon. Non-bleeding internal hemorrhoids. The examination was otherwise normal. The examined portion of the ileum was normal. No specimens collected. Repeat in 5 years. 6Negative chest. 71. No acute bony abnormality seen involving the lumbosacral spine 2. Osteopenia and mild spondylotic change as above 81. No acute bony abnormality is seen involving the sacrum or sacroiliac joints 2. Degenerative changes as above 9imaging Social History Social History Type Response Smoking Status Never smoked cigaret desiree Sex Female 12nd hand during childhood FCM Outpt Note * SANDRA Pop, Ashley Salazar: PERFORM Event Display: FCM Outpt Note Authored Date: [id number] TeleHealth Visit Note I have confirmed the patients name and date of . The patient has consented to this service,and I have advised the patient that this is a billable visit for which they may be subject to a copay. [ _X ] The patient has initiated this visit after he/she was informed of the availability of telehealth for this medically necessary visit. [ _ ] The provider initiated this visit after explaining the need for this visit to the patient, who has consented to this virtual visit. I am located at my: [ _X ] Office [ _ ] Home [ _ ] Other: _ The patient is located at: [ X_ ] Home [ _ ] Other: _ This visit was conducted via live audio/video technology: [ _X ] [facility] [ _ ] Zoom This visit was conducted via [ _ ] Telephone, and was not related to a visit or procedure that occurred within the past 7 days. Total time spent communicating with the patient: _22 minutes History of Present Illness Alexandria is a 62 year old female who presents today via telehealth for concerns of worsening asthma. Feels that since she became anemic her asthma has been getting worse last night around 0300 she woke up and felt like she couldn't breathe and had to use her inhaler, which was helpful. Noticed that symptoms have been increasing over the last 3-4 weeks. Using her rescueinhaler 8 times a day. No recent viral illness. starts wheezing and feeling SOBjust walking across her apartment Review of Systems Constitutional: No fevers, No chills, No fatigue Respiratory: +shortness of breath, + mild cough at night, +wheezing with walking Cardiovascular: No chest pain, No dizziness, No palpitations, No syncope, No lightheadedness, No edema HEENT: No congestion, No drainage, No ear pain, No sore throat Gastrointestinal: No nausea, No vomiting, No diarrhea, No heartburn, No appetite changes, No constipation, No abdominal pain, No weight loss Skin: No rashes, No lesions, +breakdown on her foot, No pruritus Neurological: Normal balance, No numbness, No tingling, No headache, No weakness Physical Exam limited d/t nature of telehealth visit. No visible cyanosis or acute distress noted. Assessment/Plan 1.Asthma Problem isChronic Goal:maintenceand better control Data:_ Plan:add long acting inhaler twice daily to assist with better maintenance. Pt agreeable to use this inhaler twice daily and have close follow-up. 2.Acute asthma exacerbation Problem isAcute Goal:resolution Data:_ Plan:Start low dose prednisone for 4 days, with caution to watch her blood sugars and adjust her insulin as needed. Patient is agreeable to call back with questions or concerns. Attestation I attest that I have spent28 minutes in care and coordination of this patient. _2min previsit: chart review and preparation 22_min [id number]: obtaining HPI, PE, discussing Assessement and Plan, and other pertinent discussions/decisionsr/t care _2min postvisit: coordination of care, orders, and documentation/paperwork Problem List/Past Medical History Ongoing Acute asthma Acute URI Ambulatory dysfunction Anemia Anxiety Arthritis Asthma Atypical chest pain B12 deficiency BPPV (benign paroxysmal positional vertigo) Bronchitis Cataract Chronic renal insufficiency Colon polyp Decreased vision Depression Dermatitis Diabetic nephropathy Diabetic neuropathy Diabetic ulcer of foot with fat layer exposed Diabetic ulcer of heel Diarrhea Diastolic dysfunction Dry skin Edema Elevated serum creatinine Elevated WBC count Extremity numbness Fall at home Fibromyalgia Folate deficiency Gastroenteritis Generalized OA HBP (high blood pressure) Headache Hyperlipidemia Hypothyroidism Injury of left shoulder Insulin-requiring or dependent type II diabetes mellitus Iron deficiency anemia Joint swelling Kidney disease Laceration of left great toe Left shoulder pain Mouth sores Need for immunization against influenza Obesity Open wound of right heel Pain of right tibia Panic attack Physical deconditioning Post traumatic stress disorder (PTSD) Post-menopause bleeding Preventative health care Protein deficiency Rash RBBB Rhinitis Right knee pain Secondary amenorrhea Sinobronchitis Situational stress SOB (shortness of breath) Stomach pain Stress at work Tachycardia Tinea pedis of left foot Tinea unguium Tobacco user Trigger finger Uncontrolled diabetes mellitus with hyperglycemia Upper respiratory disease Weight disorder Historical Diabetes Left knee pain Procedure/Surgical History Care of open wound (11/2022) COLONOSCOPY & POLYPECTOMY (02/13/2022) Eye examination (12/30/2018)MRI of lumbar spine (11/06/2018)Colonoscopy (12/06/2016)Chest x-ray (07/17/2016)Lumbar Spine X-ray (05/17/2016)Sacrum and sacroiliac joints X-ray (05/17/2016)Dilation and curettage of uterus (03/29/2016)Imaging,right tibia/fibula (01/27/2016)Mammogram (08/25/2015)Ultrasound (02/08/2015)Repair of rotator cuff of shoulder (07/22/2013)Arthroscopic repair of meniscus Medications albuterol(albuterol CFC free 90 mcg/inh MDI), 2 puff, inhaled, qid, PRN, 3 refills albuterol-ipratropium(Combivent Respimat 20 mcg-100 mcg/inh inhalation aerosol), 2 puff, inhaled, bid, 3 refills amitriptyline(Elavil 50 mg oral tablet), 100 mg= 2 tab, PO, qhs, 3 refills atorvastatin(Lipitor 80 mg oral tablet), 80 mg= 1 tab, PO, Daily, 3 refills bumetanide(bumetanide 0.5 mg oral tablet), 0.5 mg= 1 tab, PO, Daily collagenase topical(Santyl 250 units/g topical ointment) dapagliflozin(Farxiga 5 mg oral tablet) diabetes supplies(One Touch Verio Test Strips), See Instructions, 3 refills diabetes supplies(Microlet Lancets 100 ct), See Instructions, 3 refills diabetes supplies(FreeStyle Davy 14 day sensor), See Instructions, 11 refills diabetes supplies(FreeStyle Davy 2 - 14 day reader), See Instructions diabetes supplies(FreeStyle Davy 2 - 14 day sensor), See Instructions dulaglutide(Trulicity Pen 0.75 mg/0.5 mL subcutaneous solution), 0.75 mg, subQ, q7days, 3 refills famotidine(famotidine 20 mg oral tablet), See Instructions famotidine(famotidine 20 mg oral tablet), See Instructions ferrous sulfate(ferrous sulfate 325 mg (65 mg elemental iron) oral delayed release tablet), 325 mg=1 tab, PO, bid, 3 refills fluticasone nasal(fluticasone 50 mcg/inh nasal spray), See Instructions, 2 refills folic acid(folic acid 1 mg oral tablet), 1 mg= 1 tab, PO, Daily, 2 refills insulin aspart(NovoLOG FlexPen 100 units/mL injectable solution) insulin detemir(Levemir FlexPen 100 units/mL subcutaneous solution), See Instructions, 3 refills levothyroxine(Synthroid 175 mcg (0.175 mg) oral tablet), 175 mcg= 1 tab, PO, Daily, 3 refills metFORMIN(metFORMIN 1000 mg oral tablet), See Instructions omeprazole(omeprazole 20 mg oral delayed release capsule), 20 mg= 1 cap, PO, Daily omeprazole(omeprazole 20 mg oral delayed release capsule), See Instructions predniSONE(predniSONE 10 mg oral tablet), 10 mg= 1 tab, PO, Daily syringe needles(BD needle Ultra-Fine Pen Siria 32G x 4mm), See Instructions, 3 refills triamcinolone topical(triamcinolone 0.1% topical cream), See Instructions valACYclovir(Valtrex 1 g oral tablet), 1 g= 1 tab, PO, q12h Allergies Allergy Not found in Searchhives Latexrash NyQuil Cold/Flu Reliefrash amoxicillinhives clarithromycin sulfa drugsturned red, itchy on lower arms and legs Social History Smoking Status Never smoked cigarettes Alcohol - Denies Alcohol Use Substance Abuse - Denies Substance Abuse Tobacco - Denies Tobacco Use Use:Never smoker - Comments: 2nd hand during childhood Family History Aortic aneurysm: Father. Brain aneurysm...: PGM. CABG - Coronary artery bypass graft: Mother. Diabetes mellitus: MGF. Heart attack: Mother. Heart disease: Mother. Stroke: PGM. Tobacco abuse: Mother. Health Status Family Member(s) Immunizations Vaccine Date Status influenza virus vaccine, inactivated 12/13/2022 Given influenza virus vaccine, inactivated 01/04/2021 Given SARS-CoV-2 (COVID-19) Ad26 vaccine 08/24/2020 Recorded influenza virus vaccine, inactivated 10/24/2016 Recorded pneumococcal 23-valent vaccine 01/27/2016 Given influenza virus vaccine, inactivated 12/29/2015 Recorded influenza virus vaccine, inactivated 12/10/2014 Recorded Comments : [12/31/2014] given at [facility] tetanus/diphtheria/pertuss, acel (Tdap) 07/10/2011 Recorded Comments : 2021-07-19: Historical information-source unspecified pneumococcal 23-valent vaccine 07/10/2011 Recorded Comments : 2021-07-19: Historical information-source unspecified diphtheria-tetanus toxoids, DT (Ped) 11/03/1998 Recorded Comments : 2021-07-19: Historical information-source unspecified pneumococcal 23-valent vaccine 01/18/1996 Recorded Comments : 2021-07-19: Historical information-source unspecified Recommendations Health Maintenance Pending(in the next year) OverDue Breast Cancer Screening due08/25/17and every 731day Diabetic Eye Exam due02/03/21and every 731day Due Adult COVID-19 Vaccination due03/15/23Unknown Frequency Adult Social Determinants of Health Screening due03/15/23Unknown Frequency Adult Tdap/Td Vaccine due03/15/23Unknown Frequency Cervical Cancer Screening due03/15/23Unknown Frequency Hepatitis C Screening due03/15/23One-time only Pneumococcal Vaccine Adults and Adolescents with Chronic Illness due03/15/23One-time only Shingles Vaccine due03/15/23One-time only Due In Future Adult Influenza Vaccine not due until09/09/23and every 1year Body Mass Index not due until12/14/23and every 366day Diabetes Management A1c not due until12/14/23and every 366day Satisfied(in the past 1 year) Satisfied Adult Influenza Vaccine on12/13/22.Satisfied by SARTHAK Mckinney, Angelica Body Mass Index on08/25/22.Satisfied by CATHERINE Sanders Angela Diabetes Management A1c on12/13/22.Satisfied by Contributor_system, [email or web address] Diabetes Nephropathy Management on10/19/22.Satisfied by Contributor_system, [email or web address] Electronic Signature on File CC: Natali Langston DO [address] [place] [address] Electronically Reviewed/Signed by: SANDRA Wren Author Signature Dt/Tm:03/15/2023 09:06 AM Department [facility] Patient Care team information Care Team Personnel Name: DO Langston Kristen M Position: Physician - Family Med Member Role: Primary Care Provider Address: Address: [address] [place] [address] [place] Name: SANDRA Pop Katy Marie Position: Nurse Pract - Family Med Member Role: Lifetime Relationship Address: Address: [address] [place] [address] [place] Name: SANDRA Llamas Shari A Position: Nurse Pract - Family Med Member Role: Lifetime Relationship Address: Address: [address] [place] [address] [place] Care Team Related Persons Name: ALEISHA ACEVEDO Address: [place] [address]
--- OUTSIDE RECORDS SUMMARY | 2023-03-20 01:28 | External Medical Summary | Continuity of Care Document ---
Author Name Unknown Organization [address] Address [address] [place] [address] [place], [place] [id number] Care Team Providers Care Drop Hammer Set Up Operator Name Role Phone Natali Langston Primary Care Physician [phone] [id number] Date(s): 02/13/23 - 02/13/[address] [place] [address], [address] [place] [address] [place] [phone] Encounter Diagnosis Anemia(Discharge Diagnosis) - 02/13/23 Diabetic ulcer of heel(Discharge Diagnosis) - 02/13/23 Diabetic nephropathy(Discharge Diagnosis) - 02/13/23 Diabetic neuropathy(Discharge Diagnosis) - 02/13/23 Anemia, unspecified(Final) - Type 2 diabetes mellitus with foot ulcer(Final) - Discharge Disposition: Home or Self Care Attending Physician: DO Langston Kristen M Referring Physician: DO Langston Kristen M Allergies, Adverse Reactions, Alerts Substance Reaction Severity Status amoxicillin hives Active clarithromycin 1 Active sulfa drugs turned red, itchy on lower arms and legs Active Latex rash Active NyQuil Cold/Flu Relief rash Activ e Allergy Not found in Search 2 hives Active 1Palpitations 2Arnold's 12 grain bread Assessment and Plan Extracted from: Title:Office Visit Note Author:DO Langston Kriste n M Date:02/13/23 1.Anemia Chronic condition, stable Goal:Resolution Data:unique tests ordered: _ Plan: _check labs 2.Diabetic ulcer of heel Chronic condition, stable Goal:Resolution Data:unique tests ordered: _ Plan: _much improved per patient. Continue current regimen 3.Diabetic nephropathy Chronic condition, stable Goal:Resolution Data:unique tests ordered: _ Plan: _cont care with nephrology 4.Diabetic neuropathy Chronic condition, stable Goal:Resolution Data:unique tests ordered: _ Plan: _Pt want to consider neurology referral Immunizations Given and Recorded Vaccine Date Status [...] albuterol CFC free 90 mcg/inh MDI Start: 06/09/21 16:52:00 EDT, 2 puff, inhaled, qid, Disp# 1 each, Refills: 3, PRN: as needed for wheezing, Pharmacy: [facility] Start Date: 06/09/21 Stop Date: 10/07/21 Status: Ordered BD needle Ultra-Fine Pen Siria 32G x 4mm Start: 03/06/22 10:31:00 EST, See Instructions, Disp# 360 each, Refills: 3, use qid with insulin icd 10 E11.9, Pharmacy: [facility] Start Date: 03/06/22 Status: Ordered bumetanide 0.5 mg oral tablet Start: 10/19/21 11:36:00 EDT, 1 tab, PO, Daily Start Date: 10/19/21 Status: Ordered Elavil 50 mg oral tablet Start: 07/20/22 12:40:00 EDT, 2 tab, PO, qhs, Disp# 180 tab, Refills: 3, Pharmacy: [facility] [id number] Start Date: 07/20/22 Status: Ordered famotidine 20 mg oral tablet Start: 02/24/22 11:33:00 EST, See Instructions, Disp# 180 tab, Refills: 2, Take 1 tablet by mouth twice daily, Pharmacy: [facility] Start Date: 02/24/22 Status: Ordered Farxiga 5 mg oral tablet TAKE 1 TABLET BY MOUTH ONCE DAILY Start Date: 10/19/21 Status: Ordered fluticasone 50 mcg/inh nasal spray Start: 12/03/16 9:42:19, See Instructions, Disp# 16, Refills: 2, 2 spray each nostril Daily,x30 day, [facility] [address] Start Date: 12/03/16 Status: Ordered folic acid 1 mg oral tablet Start: 09/11/22 12:04:00 EDT, 1 tab, PO, Daily, Disp# 30 tab, Refills: 2, Pharmacy: [facility] Start Date: 09/11/22 Stop Date: 12/10/22 Status: Ordered FreeStyle Davy 14 day sensor Start: 07/14/21 10:19:00 EDT, See Instructions, Disp# 2 kit, Refills: 11, USe Q 14 days, Pharmacy: [facility] Start Date: 07/14/21 Status: Ordered FreeStyle [...] am and 43 units in pm, Pharmacy: [facility] Start Date: 09/29/22 Status: Ordered Lipitor 80 mg oral tablet Start: 07/14/22 9:57:00 EDT, 1 tab, PO, Daily, Disp# 90 tab, Refills: 3, Pharmacy: [facility] Start Date: 07/14/22 Stop Date: 07/09/23 Status: Ordered metFORMIN 1000 mg oral tablet Start: 10/06/22 11:23:00 EDT, See Instructions, Disp# 180 tab, Refills: 2, Take 1 tablet by mouth twice daily, Pharmacy: [facility] Start Date: 10/06/22 Status: Ordered Microlet Lancets 100 ct Start: 12/07/22 15:22:00 EDT, See Instructions, Disp# 100 each, Refills: 3, check blood sugars TID,Pharmacy: [facility] Start Date: 12/07/22 Status: Ordered NovoLOG FlexPen 100 units/mL injectable solution INJECT 30 UNITS UNDER THE SKIN IN THE MORNING, 45 UNITS WITH LUNCH, AND 40 UNITS IN THE EVENING. MAX DAILY DOSE OF 115 UNITS Start Date: 07/04/22 Status: Ordered omeprazole 20 mg oral delayed release capsule Start: 11/16/22 16:59:00 EDT, 1 cap, PO, Daily, Disp# 90 cap, Refills: 0, Pharmacy: [facility] Start Date: 11/16/22 Status: Ordered One Touch Verio Test Strips Start: 12/07/22 15:21:00 EDT, See Instructions, Disp# 100 strip, Refills: 3, check blood sugars TID, Pharmacy: [facility] Start Date: 12/07/22 Status: Ordered Santyl 250 units/g topical ointment Start: 08/25/22 11:29:00 EDT Start Date: 08/25/22 Status: Ordered Synthroid 175 mcg (0.175 mg) oral tablet Start: 07/14/22 9:57:00 EDT, 1 tab, PO, Daily, Disp# 90 tab, Refills: 3, Pharmacy: [facility] Start Date: 07/14/22 Status: Ordered triamcinolone 0.1% topical cream Start: 12/02/21 9:42:00 EDT, See Instructions, Disp# 30 g, Refills: 0, APPLY TOPICALLY TWICE DAILY,Pharmacy: [facility] Start Date: 12/02/21 Status: Ordered Trulicity Pen 0.75 mg/0.5 mL subcutaneous solution Start: 01/08/23 14:46:00 EDT, 0.75 mg =, subQ, q7days, Disp# 1 kit, Refills: 3, Pharmacy: [facility] Start Date: 01/08/23 Stop Date: 01/03/24 Status: Ordered Valtrex 1 g oral tablet Start: 08/03/22 13:15:00 EDT, 1 tab, PO, q12h, Disp# 6 tab, Refills: 0, Pharmacy: [facility] Start Date: 08/03/22 Stop Date: 08/06/22 Status: Ordered Mental Status 02/13/23 Barriers to Learning one year None evide nt Mandatory Health Literacy Documentation Yes Health Literacy Communication Barriers N ever Primary Language Sami Problem List Condition Confirmation Course Effective Dates [...] Effective Dates Health Status Clinical Service Informant Anemia Discharge Diagnosis 02/13/23 Diabetic ulcer of heel Discharge Diagnosis 02/13/23 Diabetic nephropathy Discharge Diagnosis 02/13/23 Diabetic neuropathy Discharge Diagnosis 02/13/23 Procedures Procedure Date Related Diagnosis Body Site [...] joints 2. Degenerative changes as above 9imaging Results Laboratory List Name Date Complete Blood Count w Differential (CBC ,DIFFH) 02/13/23 Comprehensive Metabolic Panel (COMP META B PANEL) 02/13/23 Ferritin (FERRITIN) 02/13/23 Iron Profile (IRON PROFILE) 02/13/23 Most recent to oldest [Reference Range]: 1 eGFR CKD-EPI [>60 mL/min/1.73 m2] 25 mL/ min/1.73 m2 *LOW* (02/13/23 11:25 AM) Estimated CrCl 35.56 mL/min (02/13/23 8:22 PM) MPV [9.0-12.2 fL] 12.8 fL *HI* (02/13/23 11:25 AM) Immature Gran% 0.6 % (02/13/23 11:25 AM) Neut% 64.5 % (02/13/23 11:25 AM) Lymph% 27.2 % (02/13/23 11:25 AM) Finney% 5.0 % (02/13/23 11:25 AM) Baso% 0.6 % (02/13/23 11:25 AM) Eos% 2.1 % (02/13/23 11:25 AM) Immat Gran, Abs [0-0.4 K/uL] 0.09 K/uL (02/13/23 11:25 AM) Neut, Abs [2.0-7.7 K/uL] 9.07 K/uL *HI* (02/13/23 11:25 AM) Lymph, Abs [1.0-3.4 K/uL] 3.83 K/uL *HI* (02/13/23 11:25 AM) Finney, Abs [0-1.0 K/uL] 0.70 K/uL (02/13/23 11:25 AM) Baso, Abs [0-0.1 K/uL] 0.09 K/uL (02/13/23 11:25 AM) Eos, Abs [0-0.5 K/uL] 0.29 K/uL (02/13/23 11:25 AM) Type of Diff: AUTO *Unknown* (02/13/23 11:25 AM) RDW [11.5-14.2 %] 17.6 % *HI* (02/13/23 11:25 AM) Anion Gap [5-14 mmol/L] 13 mmol/L (02/13/23 11:25 AM) Alb [3.5-5.2 g/dL] 3.1 g/dL *LOW* (02/13/23 AM) Alk Phos [35-115 unit/L] 99 unit/L (02/13/23: AM) ALT [0-33 unit/L] 7 unit/L (02/13/23 AM) AST [0-32 unit/L] 14 unit/L (02/13/23:25 AM) BUN [6-23 mg/dL] 26 mg/dL *HI* (02/13/23 AM) Ca [8.4-10.2 mg/dL] 8.9 mg/dL (02/13/23: AM) Cl- [98-107 mmol/L] 107 mmol/L (02/13/23: AM) HCO3 [22-29 mmol/L] 18 mmol/L *LOW* (02/13/23 AM) Cret [0.60-1.00 mg/dL] 2.14 mg/dL *HI* (02/13/23 11:25 AM) Iron [37-145 ug/dL] 22 ug/dL *LOW* (02/13/23: AM) Ferritin [13.0-150.0 ng/mL] 71.1 ng/mL (02/13/23: AM) Glu [74-109 mg/dL] 146 mg/dL 1 *HI* (02/13/23 AM) Hct [35-44 %] 28.6 % *LOW* (02/13/23: AM) Hgb [11.7-15.0 g/dL] 8.7 g/dL *LOW* (02/13/23: AM) K [3.5-5.1 mmol/L] 5.0 mmol/L (02/13/23 11: AM) MCH [28-33 pg] 26.4 pg *LOW* (02/13/23 11:25 AM) MCHC [32-36 g/dL] 30.4 g/dL *LOW* (02/13/23:25 AM) MCV [81-96 fL] 86.7 fL (02/13/23 11:25 AM) Na [136-145 mmol/L] 138 mmol/L (02/13/23 11:25 AM) Plts [150-350 K/uL] 356 K/uL 2 *HI* (02/13/23 11:25 AM) RBC [3.90-5.00 M/uL] 3.30 M/uL *LOW* (02/13/23 11:25 AM) Fe Sat [14-50 %] 9 % *LOW* (02/13/23 11:25 AM) T Bili [0.0-1.2 mg/dL] 0.1 mg/dL (02/13/23 11:25 AM) Total IBC [250-400 ug/dL] 256 ug/dL (02/13/23 11:25 AM) Prot [6.4-8.3 g/dL] 7.0 g/dL (02/13/23 11:25 AM) Transferrin [200-360 mg/dL] 217 mg/dL (02/13/23 11:25 AM) WBC [4.0-10.4 K/uL] 14.07 K/uL *HI* (02/13/23 11:25 AM) 1Result Comment: ADA recommendation for FASTING Serum/Plasma Glucose: Normal: 70-100 mg/dL Prediabetes: 100-125 mg/dL Diabetes: 126 mg/dL or higher 2Result Comment: CHECKED Vital Signs Most recent to oldest [Reference Range]: 1 Temperature [36.5-37.9 DegC] 36.2 DegC *LOW* (02/13/23 10:39 AM) Heart Rate 70 bpm (02/13/23 10:39 AM) Blood Pressure 132/70mmHg (02/13/23 10:39 AM) Cuff Pulse Pressure 62 mmHg (02/13/23 10:39 AM) Social History Social History Type Response Smoking Status Never smoked cigaret desiree Sex Female 12nd hand during childhood FCM Outpt Note * DO Langston Kristen M: PERFORM Event Display: FCM Outpt Note Authored Date: Chief Complaint F/u. Sleep walking episode in hospital. Was seeing writing on ceiling. History of Present Illness Pt presents to discuss ongoing issues. She has a couple of concerns. She was hospitalized in Nov--with issues resolved. Pt states she was hallucinations in the hospitals. This was described as sleep walking. Pt states she had been cold intolerant. Physical Exam Vitals & Measurements T:36.2C HR:70(Monitored) BP:132/70 SpO2:98% PHQ2 Data(Data Documented on:02/13/2023 10:34) Emotional health assessment NEGATIVE G: AAAOx3, NAD H: RR normal S1/S2 no M/R/G L: CTA b/l no r/r/w skin: heel with 4 cm ulceration--lots of granulation tissue A: soft +bs nt nd E: no c/C/E b/l, pos distal pulses P: normal affect and insight, no homicidal/suicidal ideation Assessment/Plan 1.Anemia Chronic condition, stable Goal:Resolution Data:unique tests ordered: _ Plan: _check labs 2.Diabetic ulcer of heel Chronic condition, stable Goal:Resolution Data:unique tests ordered: _ Plan: _much improved per patient. Continue current regimen 3.Diabetic nephropathy Chronic condition, stable Goal:Resolution Data:unique tests ordered: _ Plan: _cont care with nephrology 4.Diabetic neuropathy Chronic condition, stable Goal:Resolution Data:unique tests ordered: _ Plan: _Pt want to consider neurology referral Attestation I spent4 mintime in previsit planning including prepping note and chart review . I spent33 time in face to face interaction with patient concerning the issues that brought them in today. I spent4 min time in post visit planning including finishing note and depart process Total time spent today on patient visit41 min Problem List/Past Medical History Ongoing Acute asthma Acute URI Ambulatory dysfunction Anemia Anxiety Arthritis Asthma Atypical chest pain B12 deficiency BPPV (benign paroxysmal positional vertigo) Bronchitis Cataract Chronic renal insufficiency Colon polyp Decreased vision Depression Dermatitis Diabetic nephropathy Diabetic neuropathy Diabetic ulcer of foot with fat layer exposed Diarrhea Diastolic dysfunction Dry skin Edema Elevated [...] 2 puff, inhaled, qid, PRN, 3 refills amitriptyline(Elavil 50 mg oral tablet), [...] famotidine(famotidine 20 mg oral tablet), See Instructions fluticasone nasal(fluticasone 50 mcg/inh nasal spray), See Instructions, 2 refills folic acid(folic acid 1 mg oral tablet), 1 mg= 1 tab, PO, Daily, 2 refills insulin aspart(NovoLOG FlexPen 100 units/mL injectable solution) insulin detemir(Levemir FlexPen 100 units/mL subcutaneous solution), See Instructions, 3 refills levothyroxine(Synthroid 175 mcg (0.175 mg) oral tablet), 175 mcg= 1 tab, PO, Daily, 3 refills lisinopril(lisinopril 40 mg oral tablet), 40 mg= 1 tab, PO, Daily, 3 refills metFORMIN(metFORMIN 1000 mg oral tablet), See Instructions omeprazole(omeprazole 20 mg oral delayed release capsule), 20 mg= 1 cap, PO, Daily syringe needles(BD needle Ultra-Fine Pen [...] due02/03/21and every 731day Due Adult COVID-19 Vaccination due02/13/23Unknown Frequency Adult Tdap/Td Vaccine due02/13/23Unknown Frequency Cervical Cancer Screening due02/13/23Unknown Frequency Hepatitis C Screening due02/13/23One-time only Pneumococcal Vaccine Adults and Adolescents with Chronic Illness due02/13/23One-time only Shingles Vaccine due02/13/23One-time only Due In Future Adult Influenza Vaccine not due until09/10/23and every 1year Body Mass Index not due until12/14/23and every 366day Diabetes Management A1c not due until12/14/23and every 366day Satisfied(in the past 1 year) Satisfied Adult Influenza Vaccine on12/13/22.Satisfied by SARTHAK Mckinney Gillian Body Mass Index on08/25/22.Satisfied by CATHERINE Sanders Angela Diabetes Management A1c on12/13/22.Satisfied by Contributor_system, [email or web address] Diabetes Nephropathy Management on10/19/22.Satisfied by Contributor_system, [email or web address] Electronic Signature on File Electronically Reviewed/Signed by: Natali Langston DO Author Signature Dt/Tm:02/13/2023 12:01 PM Department of Family Medicine [facility] Patient Care team information Care Team Personnel Name: DO Langston Kristen M Position: Physician - Family Med Member Role: Primary Care Provider Address: Address: [address] [place] [address] Name: SANDRA Llamas Shari A Position: Nurse Pract - Family Med Member Role: Lifetime Relationship Address: Address: [address] [place] [address] [address] [place], [place] [address] Care Team Related Persons Name: ALEISHA ACEVEDO Address: home [address] [facility] [place], [place] [id number]
--- OUTSIDE RECORDS SUMMARY | 2023-03-20 01:28 | External Medical Summary | Continuity of Care Document ---
Author Name Unknown Organization [facility] [address] [place] [id number] Care Team Providers Care Process Analyst Name Role Phone Natali Langston Primary Care Physician [phone] Encounter [facility] [id number] Date(s): 02/07/23 - 02/07/23 [facility] 207 [facility] [address] [place] [address] [place] [phone] Discharge Disposition: Home or Self Care Attending [...] hives Active 1Palpitations 2Arnold's 12 grain bread Immunizations Given and Recorded Vaccine Date Status [...] Re corded 1Result Comment: [12/31/2014] given at [facility] [employer] 2Result Comment: 2021-07-19: Historical information-source unspecified 3Result Comment: 2021-07-19: Historical information-source unspecified 4Result Comment: 2021-07-19: Historical information-source unspecified 5Result Comment: 2021-07-19: Historical information-source unspecified Medications albuterol CFC free 90 mcg/inh MDI Start: 06/09/21 16:52:00 EDT, 2 puff, inhaled, qid, Disp# 1 each, Refills: 3, PRN: as needed for wheezing, Pharmacy: [facility] Start Date: 06/09/21 Stop Date: 10/07/21 Status: Ordered BD needle Ultra-Fine Pen Siria 32G x 4mm Start: 03/06/22 10:31:00 EST, See Instructions, Disp# 360 each, Refills: 3, use qid with insulin icd 10 E11.9, Pharmacy: [facility] Start Date: 03/06/22 Status: Ordered bumetanide 0.5 mg oral tablet Start: 10/19/21 11:36:00 EDT, 1 tab, PO, Daily Start Date: 10/19/21 Status: Ordered Elavil 50 mg oral tablet Start: 07/20/22 12:40:00 EDT, 2 tab, PO, qhs, Disp# 180 tab, Refills: 3, [facility] Start Date: 07/20/22 Status: Ordered famotidine 20 mg oral tablet Start: 02/24/22 11:33:00 EST, See Instructions, Disp# 180 tab, Refills: 2, Take 1 tablet by mouth twice daily, Pharmacy: [facility] Start Date: 02/24/22 Status: Ordered Farxiga 5 mg oral tablet TAKE 1 TABLET BY MOUTH ONCE DAILY Start Date: 10/19/21 Status: Ordered fluticasone 50 mcg/inh nasal spray Start: 12/03/16 9:42:19, See Instructions, Disp# 16, Refills: 2, 2 spray each nostril Daily,x30 day, [facility]acy: [facility] Start Date: 12/03/16 Status: Ordered folic acid 1 mg oral tablet Start: 09/11/22 12:04:00 EDT, 1 tab, PO, Daily, Disp# 30 tab, Refills: 2, Pharmacy: [facility] Start Date: 09/11/22 Stop Date: 12/10/22 Status: Ordered FreeStyle Davy 14 day sensor Start: 07/14/21 10:19:00 EDT, See Instructions, Disp# 2 kit, Refills: 11, USe Q 14 days, Pharmacy: [facility] Start Date: 07/14/21 Status: Ordered [...] am and 43 units in pm, Pharmacy: [facility] Start Date: 09/29/22 Status: Ordered Lipitor 80 mg oral tablet Start: 07/14/22 9:57:00 EDT, 1 tab, PO, Daily, Disp# 90 tab, Refills: 3, Pharmacy: [place] [id number] Start Date: 07/14/22 Stop Date: 07/09/23 Status: Ordered lisinopril 40 mg oral tablet Start: 07/14/22 9:57:00 EDT, 1 tab, PO, Daily, Disp# 90 tab, Refills: 3, Unsure of dosage, Pharmacy: [facility] Start Date: 07/14/22 Status: Ordered metFORMIN 1000 mg oral tablet Start: 10/06/22 11:23:00 EDT, See Instructions, Disp# 180 tab, Refills: 2, Take 1 tablet by mouth twice daily, Pharmacy: [facility] Start Date: 10/06/22 Status: Ordered Microlet Lancets 100 ct Start: 12/07/22 15:22:00 EDT, See Instructions, Disp# 100 each, Refills: 3, check blood sugars TID,Pharmacy: [facility] Start Date: 12/07/22 Status: Ordered [...] Daily, Disp# 90 cap, Refills: 0, Pharmacy: [facility] Start Date: 11/16/22 Status: Ordered One Touch Verio Test Strips Start: 12/07/22 15:21:00 EDT, See Instructions, Disp# 100 strip, Refills: 3, check blood sugars TID, Pharmacy: [facility] Start Date: 12/07/22 Status: Ordered Santyl 250 units/g topical ointment Start: 08/25/22 11:29:00 EDT Start Date: 08/25/22 Status: Ordered Synthroid 175 mcg (0.175 mg) oral tablet Start: 07/14/22 9:57:00 EDT, 1 tab, PO, Daily, Disp# 90 tab, Refills: 3, [facility] Start Date: 07/14/22 Status: Ordered triamcinolone 0.1% topical cream Start: 12/02/21 9:42:00 EDT, See Instructions, Disp# 30 g, Refills: 0, APPLY TOPICALLY TWICE DAILY,Pharmacy: [facility] Start Date: 12/02/21 Status: Ordered Trulicity Pen 0.75 mg/0.5 mL subcutaneous solution Start: 01/08/23 14:46:00 EDT, 0.75 mg =, subQ, q7days, Disp# 1 kit, Refills: 3, Pharmacy: [facility] Start Date: 01/08/23 Stop Date: 01/03/24 Status: Ordered Valtrex 1 g oral tablet Start: 08/03/22 13:15:00 EDT, 1 tab, PO, q12h, Disp# 6 tab, Refills: 0, Pharmacy: [facility] Start Date: 08/03/22 Stop Date: 08/06/22 Status: [...] (PTSD) Confirmed Active Trigger finger Confirmed Active Decreased vision Confirmed Active Ambulatory dysfunction Confirmed Active Weight disorder Confirmed Active Procedures Procedure Date Related Diagnosis Body Site [...] desiree Sex Female 12nd hand during childhood Patient Care team information Care Team Personnel Name: DO Langston Kristen M Position: Physician - Family Med Member Role: Primary Care Provider Address: Address: [address] [place] [phone] Name: SANDRA Llamas Shari A Position: Nurse Pract - Family Med Member Role: Lifetime Relationship Address: Address: [address] [place] [id number] Care Team Related Persons Name: ALEISHA ACEVEDO Address: [place] [address], [place] [phone]
[2023-03-20] MEDS: LEVOTHYROXINE SODIUM 175 MCG TABLET PO SCH (06:01)
[2023-03-20 06:38] LABS: Hematocrit (blood only) 23.4 % (37.0-47.0); Hemoglobin 7.1 g/dl (12.0-16.0); Mean Corpuscular Hemoglobin 25.9 pg (25.0-34.0); Mean Corpuscular Hgb Conc 30.3 g/dL (32.0-36.0); Mean Corpuscular Volume 85.4 fL (80.0-100.0); Mean Platelet Volume 11.4 fL (9.4-12.4); Platelet Count 361 K/uL (130-400); RDW Coefficient of Variation 17.8 % (11.5-14.5); RDW Standard Deviation 55.1 fL (36.4-46.3); Red Blood Count 2.74 M/uL (4.20-5.40); White Blood Count 12.32 K/ul (4.8-10.8)
[2023-03-20 06:59] LABS: Albumin Globulin Ratio 0.7 (0.9-2); Albumin Level 2.6 gm/dl (3.4-5.0); BUN Creatinine Ratio 16.7 (10-20); Bilirubin,Total 0.3 mg/dl (0.2-1.0); Calcium 8.2 mg/dl (8.6-10.3); Creatinine Clr Calc Pharmacy 42.7 ml/min; Est GFR (African American) 29.7 ml/min; Est GFR (Non-African American) 25.6 ml/min; Globulin 3.6 gm/dl (2.5-4.0); Magnesium 1.6 mg/dl (1.7-2.4); Potassium 4.8 mmol/L (3.5-5.1); Total Protein 6.2 gm/dl (6.0-8.3)
[2023-03-20 07:08] LABS: INR 1.1 (0.9-1.1); Prothrombin Time 11.8 Seconds (9.0-12.0)
[2023-03-20 07:36] LABS: Estimated Average Glucose 212 mg/dl
[2023-03-20 07:55] LABS: Anisocytosis Present; Basophils # (auto) 0.07 K/uL (0.00-0.20); Basophils % (auto) 0.6 %; Eosinophils # (auto) 0.37 K/uL (0.00-0.50); Immature Granulocytes # (auto) 0.05 K/uL (0.01-0.20); Immature Granulocytes % (auto) 0.4 %; Lymphocytes # (auto) 5.32 K/uL (1.20-3.40); Lymphocytes % (auto) 43.2 %; Monocytes # (auto) 0.79 K/uL (0.11-0.59); Monocytes % (auto) 6.4 %; Neutrophils # (auto) 5.72 K/uL (1.40-6.50); Neutrophils % (auto) 46.4 %
[2023-03-20] MEDS: CYANOCOBALAMIN (B-12) 500 MCG TABLET PO SCH (08:08)
[2023-03-20] MEDS: amLODIPine BESYLATE 5 MG TAB PO SCH ×2 (08:08→20:08)
[2023-03-20] MEDS: PANTOprazole 40 MG TAB PO SCH (08:09)
[2023-03-20] MEDS: BUMETANIDE 1 MG in SYRINGE 0 ML IV SCH (08:09)
[2023-03-20] MEDS: FOLIC ACID 1 MG TAB PO SCH (08:09)
[2023-03-20] MEDS: FERROUS SULFATE 325 MG TAB PO SCH (08:09)
[2023-03-20] MEDS: LANTUS PER UNIT CHARGE SQ SCH ×2 (09:09→20:37)
[2023-03-20] MEDS: DAPTOmycin 375 MG in SYRINGE 0 ML IV SCH (11:24)
[2023-03-20] MEDS: CEFEPIME 2,000 MG in SYRINGE 0 ML IV SCH ×2 (11:29→22:31)
--- NOTE | 2023-03-20 12:42 | Cardiology Progress Note ---
Date of Service March 20, 2023 Assessment & Plan (1) SOB (shortness of breath): (2) (HFpEF) heart failure with preserved ejection fraction: (3) Asthma: (4) Anemia: (5) Chronic kidney disease, stage III (moderate): (6) Morbid obesity with BMI of 60.0-69.9, adult: (7) Junctional rhythm: Plan She is doing well clinically and subjectively diuresed, but input/output suggests she is only 1/2 L negative. Although she has no overt heart failure, she does still appear hypervolemic by neck veins. If in fact she is not diuresing briskly, given elevated creatinine may require higher dose of bumetanide to achieve threshold effect (2 or 3 mg IV once or twice daily). Monitor urine output today and decide on evening diuretic dosing. Junctional rhythm persists and may limit her physiologic response to volume overload. However, she is perfusing well and tolerating the lack of physiologic response at this point. Continue to avoid negative chronotropes and continue on telemetry. Ultimately, if junctional rhythm persists and is lifestyle limiting (for example, should she have a blunted response to activity and dyspneic symptoms), future consideration of pacemaker may be appropriate. Will continue to follow. Admission and Anticipated Discharge Date Admission Date: March 19, 2023 Subjective Uneventful night, she had significant subjective diuresis and feels much better. No dyspnea at rest. No chest pain. Input/output -435 mL. Creatinine stable at 2.03. Telemetry showed persistent junctional rhythm in the 65-70 bpm range with minima l rate variation. Physical Exam Physical Exam: No distress. Afebrile. Mild hypertension. Pulse 65 bpm and regular. Respirations 16 and unlabored. Skin: no ecchymoses or generalized lesions. HEENT: unremarkable. Neck: JVP still elevated to the angle of the jaw 90 degrees, no carotid bruits. Lungs: Positive wheezing. No accessory muscle use. Cardiac: regular rhythm, normal S1 and intact aortic closure sound, 2/6 basal systolic ejection murmur and 2/6 apical holosystolic murmur. No diastolic murmur. Abdomen: benign. Extremities: trace-1+ pretibial edema, pulses intact. Neurologic: normal affect and conversation, nonfocal. Results & Data Vital Signs (Past 12 Hours) Vital Signs Temp Pulse Pulse Resp BP Pulse Ox O2 Del Method 03/20/23 08:04 97.7 F 65 16 146/75 H 92 Room Air 03/20/23 08:00 Room Air 03/20/23 07:10 67 03/20/23 02:32 98.1 F 74 18 148/74 H 93 Room Air Laboratory Results Normal electrolytes, BUN 34, creatinine 2.03 (2.09 yesterday) PG Care Time/CCT Total # of Minutes Spent Total Time Spent with Patient: Total time spent is greater than 50% in coordination of care (as documented) at patient's floor/unit and/or counseling patient: Coding Level of Care Code 39677 SUB INP/OBS CARE 2/35MIN Diagnoses SOB (shortness of breath) R06.02 (HFpEF) heart failure with preserved ejection fraction I50.30 Asthma J45.909 Anemia D64.9 Chronic kidney disease, stage III (moderate) N18.30 Morbid obesity with BMI of 60.0-69.9, adult E66.01; Z68.44 Junctional rhythm I49.8
--- NOTE | 2023-03-20 13:54 | Fluoroscopy Report ---
VIDEO SWALLOW STUDY CLINICAL HISTORY: Aspiration. COMPARISON STUDY: No priors. Fluoroscopy time: 1.08 minutes. Ka,r: 11.5 mGy FINDINGS: Fluoroscopic guidance is provided to the Department of speech pathology in performing a vid eo swallow study. The patient consumed barium-impregnated pudding, cracker with paste, nectar-thick l iquids, and thin barium while the swallowing mechanism was observed in real-time. No penetration or a spiration was seen with any of the sampled texture. IMPRESSION: No penetration or aspiration was seen with any of the sampled textures. See dedicated spe ech pathology report for detailed findings and recommendations. Dictated: 03/20/2023 1:40 PM Transcribed: 03/20/2023 1:50 PM Richie [id number] ADAM_Vipul Electronically signed by: Chilango Vora M.D. 03/20/2023 1:53 PM
--- NOTE | 2023-03-20 14:59 | Pharmacy Report ---
Pharmacy Glycemic Short Note 2 - Date of Service March 20, 2023 - Glycemic Short BSG Results (Last 24 hours): 03/19/23 03/19/23 03/20/23 16:44 20:22 00:28 Glucose POC Glucose 91 171 H 115 H 03/20/23 03/20/23 03/20/23 03:45 06:01 08:20 Glucose 86 POC Glucose 100 H 91 03/20/23 13:33 Glucose POC Glucose 130 H OUTPATIENT ANTIDIABETIC REGIMEN: * Lantus 54 units SQ BID (per patient), on discharge 01/16/23 Lantus 22 units BID * Novolog 45 units with breakfast, 40 units with lunch, and 35 units with dinner (per patient) plus SS (BSG goal 120-150 CF 20 CR 7) per patient * HbA1c 9.0% (03/20/22) ASSESSMENT: * Alexandria is a 62 YOF admitted with CHF exacerbation/diabetic foot ulcer and a history of T2DM. Pharmacy has been consulted for glycemic management while inpatient. She was hypoglycemic on admission and treated with 1 amp of D50W. * Fasting BSG this AM within goal range. Clear liquid diet advanced to T2DM after swallow evaluation. Lantus started at decreased dose due to diet, will continue for now and monitor with diet advancement. She was receiving 22 units of Lantus BID in January during her admission. She was hypoglycemic on admission, will make adjustments conservatively * She is on cefepime and daptomycin for a diabetic foot ulcer. * Will begin previously successful NovoLog parameters from January admission. PLAN FOR INPATIENT GLYCEMIC CONTROL: * Hold outpatient oral diabetes medications * Basal insulin * Lantus 15 units SQ BID * Bolus insulin * NovoLog per scale ACHS or Q6hrs while NPO * Goal Range: Low 110 mg/dL - High 140 mg/dL * Correction Factor: 20 mg/dL/unit * Nutritional / Prandial insulin per carb ratio of 1 unit per 7 grams CHO consumed
[2023-03-20] MEDS: ACETAMINOPHEN 325 MG TAB PO PRN (15:23)
--- NOTE | 2023-03-20 16:14 | Hospitalist Progress Note ---
Date of Service March 20, 2023 Assessment & Plan (1) CHF exacerbation: Plan: Acute diastolic CHF Echocardiogram showed normal EF Presented with progressive shortness of breath, dyspnea on exertion, orthopnea, nonproductive cough and weight gain Clinically improving with IV Bumex with improved symptoms Increase the dose of IV Bumex to 2 mg IV twice daily as urine output is not enough Cardiology involved Monitor intake and output and daily weights Cardiology recommends avoiding negative chronotropic's because of persistent junctional rhythm. (2) SOB (shortness of breath): Plan: -Has been progressive over the past 2-3 months -Worsening with exertion, relieved with rest -Denies chest pain -Likely due to her CHF exacerbation at this time -Cannot entirely rule out ACS at this time but lower suspicion for now, follow repeat trop and TTE -Holding PRBC's ordered by ED for now to prevent further volume overload. Patient's symptoms improved with diuresis. --No sign of focal consolidation on CXR, much more consistent with CHF exacerbation -Rest of care per CHF exacerbation (3) Elevated troponin: Plan: -Initial high sen trop elevated at 18 -Patient denies symptoms at rest, has been with exertion only -No acute ST segment or T-wave changes on ECG, does show new, narrow junctional rhythm compared to previous ECG's with Bifascicular blocks -TTE showed no wall motion abnormality -Cardiology on board, did not recommend any ischemic workup at this time. (4) Diabetic foot ulcer: Plan: -Patient with progressive right heel diabetic ulcer since last admission in January -Follows with Wound clinic, per their last note on 03/13/22, they ordered an MRI of the right heel due to concerns for progression of ulcer -Per review of last admission her ulcer appears to have progressed -Continue daptomycin and Cefepime for now -Follow wound culture. -CRP negative. ESR elevated but could be elevated due to other reasons. Procalcitonin negative. X-ray calcaneus did not show any bony destruction to suggest osteomyelitis. -Wound consult on board. No concerns for infection. (5) Left arm pain: Plan: -Patient experienced approximately 20 sec of left biceps muscle pain radiating down her arm which woke her up from sleep at 0300 today -No other radiation of the pain, has experienced this pain before -Unsure of the etiology at this time, could be musculoskeletal from previous left rotator cuff repair, but can't rule out cardiac etiology at this time -Cardiac workup so far negative. Cardiology did not recommend an ischemic workup. -PRN tylenol for pain for now (6) Anemia: Plan: -Hgb currently at 7.5, down from 8.2 as of 01/25 but has been in the 7-8's since last admission -Previously diagnosed with CHUY and B12 deficiency -No recent signs/symptoms of bleeding, not on anticoagulation -Is on PO Iron, B12, and folate, continue for now -Was ordered 1 unit PRBC's by the ED, holding for now -If patient's symptoms do not improve with IV diuresis can reconsider transfusion, but will hold transfusion for now to prevent further exacerbation of CHF (7) Leukocytosis: Plan: -Patient noted to have a leukocytosis of 15 that came down to 12,000 today Could be stress-induced versus steroid-induced. -Continue abx and infectious workup per foot ulcer plan -Will follow UA to monitor for UTI, CXR negative for signs of PNA -Continue daptomycin and cefepime for now -Follow wound cultures (8) Dysphagia: Plan: -Speech therapist on board No aspiration or dysphagia noted Diet advanced (9) Uncontrolled diabetes mellitus with hyperglycemia, with long-term current use of insulin: Plan: -Monitor BSG ACHS, goal is 110-140 -Will reduce basal insulin from 54 units lantus BID to 30 BID for now with decreased oral intake -Start CF of 30 with CR of 15 for now -Pharmacy glycemic consult (10) Hypertension: Plan: -Stable -Continue amlodipine (11) Hypercholesteremia: Plan: -Continue statin (12) Hypothyroidism: Plan: -Continue levothyroxine Admission and Anticipated Discharge Date Admission Date: March 19, 2023 Subjective Patient says that she is feeling much better overall. She is breathing better. Her leg swelling is coming down significantly. Review of Systems Review of Systems: All systems reviewed & are unremarkable except as noted in Subjective Physical Exam Physical Exam: General: Awake, conversant. Obese Heart: S1, S2/regular rate and rhythm, no murmur rubs or gallops Lungs: Wheezing bilaterally. Normal effort. Abdomen: Soft/nontender/nondistended. No hepatosplenomegaly Extremities: No clubbing/cyanosis. 1+ pitting bilateral edema Behavior: Appropriate, cooperative Results & Data Results & Data Vital Signs (Past 12 Hours) Vital Signs Temp Pulse Pulse Resp BP Pulse Ox O2 Del Method 03/20/23 15:00 77 03/20/23 13:03 36.5 C 72 16 142/68 H 96 Room Air 03/20/23 08:04 36.5 C 65 16 146/75 H 92 Room Air 03/20/23 08:00 Room Air 03/20/23 07:10 67 Laboratory Results Abnormal lab results 03/19/23 03/20/23 03/20/23 Range/Units 20:22 00:20 00:28 WBC (4.8-10.8) K/ul RBC (4.20-5.40) M/uL Hgb (12.0-16.0) g/dl Hct (37.0-47.0) % MCHC (32.0-36.0) g/dL RDW Std Deviation (36.4-46.3) fL RDW Coeff of Sylvia (11.5-14.5) % Lymph # (Auto) (1.20-3.40) K/uL [place] # (Auto) (0.11-0.59) K/uL Chloride (98-107) mmol/L BUN (6-23) mg/dl Creatinine (0.6-1.2) mg/dl POC Glucose 171 H 115 H (70-99) mg/dl Hemoglobin A1c (4.5-5.6) % Calcium (8.6-10.3) mg/dl Magnesium (1.7-2.4) mg/dl Albumin (3.4-5.0) gm/dl Albumin/Globulin Ratio (0.9-2) Urine Protein 3+ H (Negative) Urine Glucose (UA) 3+ H (Negative) Urine Blood Trace H (Negative) Urine WBC (Auto) 5-10 H (0-5) /hpf U Epithel Cells (Auto) >30 H (0-5) /lpf Urine Bacteria (Auto) 1+ H (Negative) 03/20/23 03/20/23 03/20/23 Range/Units 03:45 06:01 13:33 WBC 12.32 H (4.8-10.8) K/ul RBC 2.74 L (4.20-5.40) M/uL Hgb 7.1 L (12.0-16.0) g/dl Hct 23.4 L (37.0-47.0) % MCHC 30.3 L (32.0-36.0) g/dL RDW Std Deviation 55.1 H (36.4-46.3) fL RDW Coeff of Sylvia 17.8 H (11.5-14.5) % Lymph # (Auto) 5.32 H (1.20-3.40) K/uL [place] # (Auto) 0.79 H (0.11-0.59) K/uL Chloride 110 H (98-107) mmol/L BUN 34 H (6-23) mg/dl Creatinine 2.03 H (0.6-1.2) mg/dl POC Glucose 100 H 130 H (70-99) mg/dl Hemoglobin A1c 9.0 H (4.5-5.6) % Calcium 8.2 L (8.6-10.3) mg/dl Magnesium 1.6 L (1.7-2.4) mg/dl Albumin 2.6 L (3.4-5.0) gm/dl Albumin/Globulin Ratio 0.7 L (0.9-2) Urine Protein (Negative) Urine Glucose (UA) (Negative) Urine Blood (Negative) Urine WBC (Auto) (0-5) /hpf U Epithel Cells (Auto) (0-5) /lpf Urine Bacteria (Auto) (Negative) Diagnostic Findings Videofluoroscopic Swallow 03/20/23 13:00 VIDEO SWALLOW STUDY CLINICAL HISTORY: Aspiration. COMPARISON STUDY: No priors. Fluoroscopy time: 1.08 minutes. Ka,r: 11.5 mGy FINDINGS: Fluoroscopic guidance is provided to the Department of speech pathology in performing a video swallow study. The patient consumed barium- impregnated pudding, cracker with paste, nectar-thick liquids, and thin barium while the swallowing mechanism was observed in real-time. No penetration or aspiration was seen with any of the sampled texture. IMPRESSION: No penetration or aspiration was seen with any of the sampled textures. See dedicated speech pathology report for detailed findings and recommendations. Dictated: 03/20/2023 1:40 PM Transcribed: 03/20/2023 1:50 PM Richie [id number] [email or web address] Electronically signed by: Chilango Vora M.D. 03/20/2023 1:53 PM PG Care Time/CCT Total # of Minutes Spent Total Time Spent with Patient: Total time spent is greater than 50% in coordination of care (as documented) at patient's floor/unit and/or counseling patient: Coding Level of Care Code 70829 SUB INP/OBS CARE 2/35MIN Diagnoses CHF exacerbation I50.9 SOB (shortness of breath) R06.02 Elevated troponin R79.89 Diabetic foot ulcer E11.621; L97.509 Left arm pain M79.602 Anemia D64.9 Leukocytosis D72.829 Dysphagia, unspecified type R13.10 Dysphagia type: unspecified Uncontrolled diabetes mellitus with hyperglycemia, with long-term current use of insulin E11.65; Z79.4 Essential hypertension I10 Hypertension type: essential hypertension Hypercholesteremia E78.00 Hypothyroidism E03.9 (8) Dysphagia Dysphagia type: unspecified Qualified Code(s): R13.10 - Dysphagia, unspecified (10) Hypertension Hypertension type: essential hypertension Qualified Code(s): I10 - Essential (primary) hypertension
[2023-03-20] MEDS: BUMETANIDE 2 MG in SYRINGE 0 ML IV SCH (17:23)
[2023-03-20] MEDS: AMITRIPTYLINE HCL 100 MG TAB PO SCH (20:07)
[2023-03-20] MEDS ORDERED: ALBUTEROL HFA 8 GM INHALER INH ONE (22:26)
[2023-03-20] MEDS ORDERED: IPRATROPIUM BROMIDE/ALBUTEROL respimat INH INH SCH (22:30)
[2023-03-21] MEDS: LEVOTHYROXINE SODIUM 175 MCG TABLET PO SCH (04:55)
[2023-03-21] MEDS: ALBUTEROL HFA 8 GM INHALER INH SCH ×2 (06:18→20:34)
[2023-03-21] MEDS: IPRATROPIUM BROMIDE HFA INHALER INH SCH ×2 (06:18→20:34)
[2023-03-21 08:22] LABS: Basophils # (auto) 0.05 K/uL (0.00-0.20); Basophils % (auto) 0.5 %; Eosinophils # (auto) 0.32 K/uL (0.00-0.50); Eosinophils % (auto) 2.9 %; Hematocrit (blood only) 25.9 % (37.0-47.0); Hemoglobin 7.6 g/dl (12.0-16.0); Immature Granulocytes # (auto) 0.07 K/uL (0.01-0.20); Immature Granulocytes % (auto) 0.6 %; Lymphocytes # (auto) 3.87 K/uL (1.20-3.40); Lymphocytes % (auto) 35.4 %; Mean Corpuscular Hemoglobin 25.3 pg (25.0-34.0); Mean Corpuscular Hgb Conc 29.3 g/dL (32.0-36.0); Mean Corpuscular Volume 86.3 fL (80.0-100.0); Mean Platelet Volume 10.8 fL (9.4-12.4); Monocytes # (auto) 0.73 K/uL (0.11-0.59); Monocytes % (auto) 6.7 %; Neutrophils # (auto) 5.88 K/uL (1.40-6.50); Neutrophils % (auto) 53.9 %; Platelet Count 372 K/uL (130-400); RDW Coefficient of Variation 17.7 % (11.5-14.5); RDW Standard Deviation 55.7 fL (36.4-46.3); White Blood Count 10.92 K/ul (4.8-10.8)
[2023-03-21 08:31] LABS: Albumin Globulin Ratio 0.7 (0.9-2); Albumin Level 2.8 gm/dl (3.4-5.0); BUN Creatinine Ratio 16.1 (10-20); Bilirubin,Total 0.3 mg/dl (0.2-1.0); Calcium 8.5 mg/dl (8.6-10.3); Creatinine Clr Calc Pharmacy 41.6 ml/min; Est GFR (African American) 29.4 ml/min; Est GFR (Non-African American) 25.3 ml/min; Potassium 4.4 mmol/L (3.5-5.1); Total Protein 6.8 gm/dl (6.0-8.3)
[2023-03-21 08:42] LABS: INR 1.1 (0.9-1.1)
[2023-03-21] MEDS: INSULIN ASPART PER UNIT CHARGE SC SCH ×4 (08:47→21:27)
[2023-03-21] MEDS: LANTUS PER UNIT CHARGE SQ SCH ×2 (08:48→21:33)
[2023-03-21] MEDS: PANTOprazole 40 MG TAB PO SCH (08:48)
[2023-03-21] MEDS: CYANOCOBALAMIN (B-12) 500 MCG TABLET PO SCH (08:48)
[2023-03-21] MEDS: FOLIC ACID 1 MG TAB PO SCH (08:48)
[2023-03-21] MEDS: BUMETANIDE 2 MG in SYRINGE 0 ML IV SCH ×2 (08:48→18:36)
[2023-03-21 08:49] LABS: Poikilocytosis Present; Polychromasia 1+
[2023-03-21] MEDS: FERROUS SULFATE 325 MG TAB PO SCH (08:49)
[2023-03-21] MEDS: amLODIPine BESYLATE 5 MG TAB PO SCH ×2 (08:49→21:28)
--- NOTE | 2023-03-21 10:02 | Cardiology Progress Note ---
Date of Service March 21, 2023 Assessment & Plan (1) Junctional rhythm: (2) (HFpEF) heart failure with preserved ejection fraction: (3) Asthma: (4) Anemia: (5) Chronic kidney disease, stage III (moderate): Plan She is doing well clinically and subjectively diuresed. No longer appears hypervolemic on exam. Given degree of renal insufficiency, would have low threshold for increasing outpatient diuretic dose. A reasonable option would be to discharge on bumetanide 1 mg daily, with temporary increase to 2 mg daily for any abrupt weight gain (greater than 2 pounds in 1 day or 5 pounds in 1 week). Rhythm is still predominantly junctional, but she does have some sinus beats periodically. Recommend ambulating patient, if heart rate increases and returns to sinus during activity, then no intervention necessary. If heart rate remains blunted and she notes significant dyspnea with exertion, may ultimately need to consider pacemaker. Admission and Anticipated Discharge Date Admission Date: March 19, 2023 Subjective She had a good diuresis subjectively, recorded input/output appear even, weight unreliable (9 pound weight loss?). Breathing much better, slept well, no current complaints. Telemetry showed predominantly junctional rhythm at 70 bpm with occasional sinus beats at slightly higher rate. Physical Exam Physical Exam: No distress. Mild hypertension. Pulse 65 bpm and regular. Respirations 18 and unlabored. Skin: no ecchymoses or generalized lesions. HEENT: unremarkable. Neck: JVP only minimally elevated, no carotid bruits. Lungs: Clear bilaterally. Cardiac: regular rhythm, normal S1 and intact aortic closure sound, 2/6 basal systolic ejection murmur and 2/6 apical holosystolic murmur. No diastolic murmur. Abdomen: benign. Extremities: trace pretibial edema, pulses intact. Neurologic: normal affect and conversation, nonfocal. Results & Data Laboratory Results Normal electrolytes, BUN 33, creatinine 2.05 (2.03 yesterday) PG Care Time/CCT Total # of Minutes Spent Total Time Spent with Patient: Total time spent is greater than 50% in coordination of care (as documented) at patient's floor/unit and/or counseling patient: Coding Level of Care Code 32209 SUB INP/OBS CARE 3/50MIN Diagnoses Junctional rhythm I49.8 (HFpEF) heart failure with preserved ejection fraction I50.30 Asthma J45.909 Anemia D64.9 Chronic kidney disease, stage III (moderate) N18.30
--- NOTE | 2023-03-21 13:48 | Pharmacy Report ---
Pharmacy Glycemic Short Note 2 - Date of Service March 21, 2023 - Glycemic Short BSG Results (Last 24 hours): 03/20/23 03/20/23 03/21/23 17:26 20:04 07:54 Glucose 109 H POC Glucose 154 H 184 H 03/21/23 03/21/23 08:19 12:12 Glucose POC Glucose 128 H 175 H OUTPATIENT ANTIDIABETIC REGIMEN: * Lantus 54 units SQ BID (per patient), on discharge 01/16/23 Lantus 22 units BID * Novolog 45 units with breakfast, 40 units with lunch, and 35 units with dinner (per patient) plus SS (BSG goal 120-150 CF 20 CR 7) per patient HbA1c 9.0% (03/20/22) ASSESSMENT: 03/21/23: * BSGs reasonably well-controlled over past 36 hours * Received 44 units of insulin yesterday (30 units of basal and 14 units of prandial/correctional bolus) * Do not anticipate any changes to glycemic regimen today 03/20/23: * Alexandria is a 62 YOF admitted with CHF exacerbation/diabetic foot ulcer and a history of T2DM. Pharmacy has been consulted for glycemic management while inpatient. She was hypoglycemic on admission and treated with 1 amp of D50W. * Fasting BSG this AM within goal range. Clear liquid diet advanced to T2DM after swallow evaluation. Lantus started at decreased dose due to diet, will continue for now and monitor with diet advancement. She was receiving 22 units of Lantus BID in January during her admission. She was hypoglycemic on admission, will make adjustments conservatively * She is on cefepime and daptomycin for a diabetic foot ulcer. * Will begin previously successful NovoLog parameters from January admission. PLAN FOR INPATIENT GLYCEMIC CONTROL: * Basal insulin * Lantus 15 units SQ BID * Bolus insulin * NovoLog per scale ACHS or Q6hrs while NPO * Goal Range: Low 110 mg/dL - High 140 mg/dL * Correction Factor: 20 mg/dL/unit * Nutritional / Prandial insulin per carb ratio of 1 unit per 7 grams CHO consumed
--- NOTE | 2023-03-21 16:06 | Hospitalist Progress Note ---
Date of Service March 21, 2023 Assessment & Plan (1) CHF exacerbation: Plan: Acute diastolic CHF Echocardiogram showed normal EF Presented with progressive shortness of breath, dyspnea on exertion, orthopnea, nonproductive cough and weight gain Clinically improving with IV Bumex with improved symptoms Increased the dose of IV Bumex to 2 mg IV twice daily as urine output was not enough Diuresing Cardiology involved Monitor intake and output and daily weights Cardiology recommends avoiding negative chronotropic's because of persistent junctional rhythm. Asked the nurse to walk patient with a telecommunications administrator watching the rhythm to see if she "overrides" junctional with sinus and has physiologic heart rate response to activity (2) SOB (shortness of breath): Plan: -Has been progressive over the past 2-3 months -Worsening with exertion, relieved with rest -Denies chest pain -Likely due to her CHF exacerbation at this time -Holding PRBC's ordered by ED for now to prevent further volume overload. Patient's symptoms improved with diuresis. --No sign of focal consolidation on CXR, much more consistent with CHF exacerbation -Rest of care per CHF exacerbation (3) Elevated troponin: Plan: -Initial high sen trop elevated at 18 -Patient denies symptoms at rest, has been with exertion only -No acute ST segment or T-wave changes on ECG, does show new, narrow junctional rhythm compared to previous ECG's with Bifascicular blocks -TTE showed no wall motion abnormality -Cardiology on board, did not recommend any ischemic workup at this time. (4) Diabetic foot ulcer: Plan: -Patient with progressive right heel diabetic ulcer since last admission in January -Follows with Wound clinic, per their last note on 03/13/22, they ordered an MRI of the right heel due to concerns for progression of ulcer -Per review of last admission her ulcer appears to have progressed -Discontinue daptomycin and cefepime today as no sign of infection -Follow wound culture. -CRP negative. ESR elevated but could be elevated due to other reasons. Pro calcitonin negative. X-ray calcaneus did not show any bony destruction to suggest osteomyelitis. -Wound consult on board. No concerns for infection. (5) Left arm pain: Plan: -Patient experienced approximately 20 sec of left biceps muscle pain radiating down her arm which woke her up from sleep at 0300 today -No other radiation of the pain, has experienced this pain before -Unsure of the etiology at this time, could be musculoskeletal from previous left rotator cuff repair, but can't rule out cardiac etiology at this time -Cardiac workup so far negative. Cardiology did not recommend an ischemic workup. -PRN tylenol for pain for now (6) Anemia: Plan: -Hgb currently at 7.6, down from 8.2 as of 01/25 but has been in the 7-8's since last admission -Previously diagnosed with CHUY and B12 deficiency -No recent signs/symptoms of bleeding, not on anticoagulation -Is on PO Iron, B12, and folate, continue for now -Was ordered 1 unit PRBC's by the ED, holding for now Patient's symptoms improved with diuretics. Will hold off on transfusion for now. (7) Leukocytosis: Plan: -Patient noted to have a leukocytosis of 15 that came down to 10,000 today Could be stress-induced versus steroid-induced. -Continue abx and infectious workup per foot ulcer plan -Urine culture negative, CXR negative for signs of PNA Discontinue daptomycin and cefepime -Follow wound cultures (8) Dysphagia: Plan: -Speech therapist on board No aspiration or dysphagia noted Diet advanced (9) Uncontrolled diabetes mellitus with hyperglycemia, with long-term current use of insulin: Plan: -Monitor BSG ACHS, goal is 110-140 -Will reduce basal insulin from 54 units lantus BID to 30 BID for now with decreased oral intake -Start CF of 30 with CR of 15 for now -Pharmacy glycemic consult (10) Hypertension: Plan: -Stable -Continue amlodipine (11) Hypercholesteremia: Plan: -Continue statin (12) Hypothyroidism: Plan: -Continue levothyroxine Admission and Anticipated Discharge Date Admission Date: March 19, 2023 Subjective Patient feels better overall. Denies chest pain or shortness of breath. Says that her leg swelling is improving. Her breathing is improving as well. Review of Systems Review of Systems: All systems reviewed & are unremarkable except as noted in Subjective Physical Exam Physical Exam: General: Awake, conversant. Obese Heart: S1, S2/regular rate and rhythm, no murmur rubs or gallops Lungs: Wheezing bilaterally. Normal effort. Abdomen: Soft/nontender/nondistended. No hepatosplenomegaly Extremities: No clubbing/cyanosis. 1+ pitting bilateral edema Behavior: Appropriate, cooperative Results & Data Results & Data Vital Signs (Past 12 Hours) Vital Signs Temp Pulse Pulse Resp BP Pulse Ox O2 Del Method 03/21/23 15:59 67 03/21/23 11:24 36.7 C 68 18 160/63 H 97 Room Air 03/21/23 07:56 36.8 C 66 18 165/71 H 96 Room Air 03/21/23 07:48 Room Air 03/21/23 07:12 72 Laboratory Results Abnormal lab results 03/20/23 03/20/23 03/21/23 Range/Units 17:26 20:04 07:54 WBC 10.92 H (4.8-10.8) K/ul RBC 3.00 L (4.20-5.40) M/uL Hgb 7.6 L (12.0-16.0) g/dl Hct 25.9 L (37.0-47.0) % MCHC 29.3 L (32.0-36.0) g/dL RDW Std Deviation 55.7 H (36.4-46.3) fL RDW Coeff of Sylvia 17.7 H (11.5-14.5) % Lymph # (Auto) 3.87 H (1.20-3.40) K/uL [place] # (Auto) 0.73 H (0.11-0.59) K/uL Chloride 108 H (98-107) mmol/L BUN 33 H (6-23) mg/dl Creatinine 2.05 H (0.6-1.2) mg/dl Glucose 109 H (70-99(Fasting)) mg/dl POC Glucose 154 H 184 H (70-99) mg/dl Calcium 8.5 L (8.6-10.3) mg/dl Albumin 2.8 L (3.4-5.0) gm/dl Albumin/Globulin Ratio 0.7 L (0.9-2) 03/21/23 03/21/23 Range/Units 08:19 12:12 WBC (4.8-10.8) K/ul RBC (4.20-5.40) M/uL Hgb (12.0-16.0) g/dl Hct (37.0-47.0) % MCHC (32.0-36.0) g/dL RDW Std Deviation (36.4-46.3) fL RDW Coeff of Sylvia (11.5-14.5) % Lymph # (Auto) (1.20-3.40) K/uL [place] # (Auto) (0.11-0.59) K/uL Chloride (98-107) mmol/L BUN (6-23) mg/dl Creatinine (0.6-1.2) mg/dl Glucose (70-99(Fasting)) mg/dl POC Glucose 128 H 175 H (70-99) mg/dl Calcium (8.6-10.3) mg/dl Albumin (3.4-5.0) gm/dl Albumin/Globulin Ratio (0.9-2) PG Care Time/CCT Total # of Minutes Spent Total Time Spent with Patient: Total time spent is greater than 50% in coordination of care (as documented) at patient's floor/unit and/or counseling patient: Coding Level of Care Code 00490 SUB INP/OBS CARE 2/35MIN Diagnoses CHF exacerbation I50.9 SOB (shortness of breath) R06.02 Elevated troponin R79.89 Diabetic foot ulcer E11.621; L97.509 Left arm pain M79.602 Anemia D64.9 Leukocytosis D72.829 Dysphagia, unspecified type R13.10 Dysphagia type: unspecified Uncontrolled diabetes mellitus with hyperglycemia, with long-term current use of insulin E11.65; Z79.4 Essential hypertension I10 Hypertension type: essential hypertension Hypercholesteremia E78.00 Hypothyroidism E03.9 (8) Dysphagia Dysphagia type: unspecified Qualified Code(s): R13.10 - Dysphagia, unspecified (10) Hypertension Hypertension type: essential hypertension Qualified Code(s): I10 - Essential (primary) hypertension
[2023-03-21] MEDS: AMITRIPTYLINE HCL 100 MG TAB PO SCH (21:28)
[2023-03-21] MEDS: ACETAMINOPHEN 325 MG TAB PO PRN (21:33)
[2023-03-22] MEDS: LEVOTHYROXINE SODIUM 175 MCG TABLET PO SCH (06:06)
[2023-03-22 06:16] LABS: Albumin Globulin Ratio 0.7 (0.9-2); Albumin Level 2.8 gm/dl (3.4-5.0); BUN Creatinine Ratio 15.1 (10-20); Bilirubin,Total 0.2 mg/dl (0.2-1.0); Calcium 8.6 mg/dl (8.6-10.3); Creatinine Clr Calc Pharmacy 37.8 ml/min; Est GFR (African American) 26.2 ml/min; Est GFR (Non-African American) 22.6 ml/min; Globulin 4.1 gm/dl (2.5-4.0); Total Protein 6.9 gm/dl (6.0-8.3)
[2023-03-22 06:17] LABS: Basophils # (auto) 0.06 K/uL (0.00-0.20); Basophils % (auto) 0.5 %; Eosinophils % (auto) 3.6 %; Hematocrit (blood only) 27.2 % (37.0-47.0); Hemoglobin 7.9 g/dl (12.0-16.0); Immature Granulocytes # (auto) 0.07 K/uL (0.01-0.20); Immature Granulocytes % (auto) 0.6 %; Lymphocytes # (auto) 4.37 K/uL (1.20-3.40); Lymphocytes % (auto) 39.1 %; Mean Corpuscular Hemoglobin 25.2 pg (25.0-34.0); Mean Corpuscular Volume 86.9 fL (80.0-100.0); Mean Platelet Volume 11.4 fL (9.4-12.4); Monocytes # (auto) 0.83 K/uL (0.11-0.59); Monocytes % (auto) 7.4 %; Neutrophils # (auto) 5.45 K/uL (1.40-6.50); Neutrophils % (auto) 48.8 %; Platelet Count 384 K/uL (130-400); RDW Coefficient of Variation 17.6 % (11.5-14.5); RDW Standard Deviation 55.1 fL (36.4-46.3); Red Blood Count 3.13 M/uL (4.20-5.40); White Blood Count 11.18 K/ul (4.8-10.8)
[2023-03-22 06:38] LABS: INR 1.1 (0.9-1.1); Prothrombin Time 11.9 Seconds (9.0-12.0)
[2023-03-22 06:45] LABS: Polychromasia 1+
[2023-03-22] MEDS: IPRATROPIUM BROMIDE HFA INHALER INH SCH ×2 (07:53→18:28)
[2023-03-22] MEDS: ALBUTEROL HFA 8 GM INHALER INH SCH ×2 (07:53→18:28)
[2023-03-22] MEDS: LANTUS PER UNIT CHARGE SQ SCH ×2 (08:58→20:29)
[2023-03-22] MEDS: amLODIPine BESYLATE 5 MG TAB PO SCH ×2 (08:59→20:25)
[2023-03-22] MEDS: INSULIN ASPART PER UNIT CHARGE SC SCH ×4 (08:59→20:30)
[2023-03-22] MEDS: CYANOCOBALAMIN (B-12) 500 MCG TABLET PO SCH (09:00)
[2023-03-22] MEDS: BUMETANIDE 2 MG in SYRINGE 0 ML IV SCH ×2 (09:00→17:23)
[2023-03-22] MEDS: PANTOprazole 40 MG TAB PO SCH (09:00)
[2023-03-22] MEDS: FOLIC ACID 1 MG TAB PO SCH (09:00)
[2023-03-22] MEDS: FERROUS SULFATE 325 MG TAB PO SCH (09:00)
--- NOTE | 2023-03-22 12:17 | Pharmacy Report ---
Pharmacy Glycemic Short Note 2 - Date of Service March 22, 2023 - Glycemic Short BSG Results (Last 24 hours): 03/21/23 03/21/23 03/21/23 12:12 17:23 20:12 Glucose POC Glucose 175 H 96 133 H 03/22/23 03/22/23 03/22/23 05:29 08:08 12:03 Glucose 97 POC Glucose 102 H 152 H OUTPATIENT ANTIDIABETIC REGIMEN: * Lantus 54 units SQ BID (per patient), on discharge 01/16/23 Lantus 22 units BID * Novolog 45 units with breakfast, 40 units with lunch, and 35 units with dinner (per patient) plus SS (BSG goal 120-150 CF 20 CR 7) per patient HbA1c 9.0% (03/20/22) ASSESSMENT: 03/22/23: * Patient received total of 57 units of insulin yesterday, of which 30 units were basal * Fasting BSG trending down this AM 97 mg/dl - may scale back on basal slightly today * BSGs improving more yesterday, may scale back on novolog 03/21/23: * BSGs reasonably well-controlled over past 36 hours * Received 44 units of insulin yesterday (30 units of basal and 14 units of prandial/correctional bolus) * Do not anticipate any changes to glycemic regimen today 03/20/23: * Alexandria is a 62 YOF admitted with CHF exacerbation/diabetic foot ulcer and a history of T2DM. Pharmacy has been consulted for glycemic management while inpatient. She was hypoglycemic on admission and treated with 1 amp of D50W. * Fasting BSG this AM within goal range. Clear liquid diet advanced to T2DM after swallow evaluation. Lantus started at decreased dose due to diet, will continue for now and monitor with diet advancement. She was receiving 22 units of Lantus BID in January during her admission. She was hypoglycemic on admission, will make adjustments conservatively * She is on cefepime and daptomycin for a diabetic foot ulcer. * Will begin previously successful NovoLog parameters from January admission. PLAN FOR INPATIENT GLYCEMIC CONTROL: * Basal insulin * Lantus 10 units Qam * Lantus 10-15 units HS * Bolus insulin * NovoLog per scale ACHS or Q6hrs while NPO * Goal Range: Low 110 mg/dL - High 140 mg/dL * Correction Factor: 30 mg/dL/unit * Nutritional / Prandial insulin per carb ratio of 1 unit per 10 grams CHO consumed
--- NOTE | 2023-03-22 14:15 | Hospitalist Progress Note ---
Date of Service March 22, 2023 Assessment & Plan (1) CHF exacerbation: Plan: Acute diastolic CHF Echocardiogram showed normal EF Presented with progressive shortness of breath, dyspnea on exertion, orthopnea, nonproductive cough and weight gain Clinically improving with IV Bumex with improved symptoms Continue the higher dose of IV Bumex to 2 mg IV twice daily. Good urine output yesterday. -2.7 L However creatinine is slightly bumped from 2-2.5 today. She still is volume overloaded. Will continue the 2 mg of IV Bumex twice daily for now while watching kidney function closely. Cardiology involved Monitor intake and output and daily weights Cardiology recommends avoiding negative chronotropic's because of persistent junctional rhythm. Cardiology to evaluate the need for pacemaker down the line (2) SOB (shortness of breath): Plan: -Has been progressive over the past 2-3 months -Worsening with exertion, relieved with rest -Denies chest pain -Likely due to her CHF exacerbation at this time -Holding PRBC's ordered by ED for now to prevent further volume overload. Patient's symptoms improved with diuresis. --No sign of focal consolidation on CXR, much more consistent with CHF exacerbation -Rest of care per CHF exacerbation (3) Elevated troponin: Plan: -Initial high sen trop elevated at 18 -Patient denies symptoms at rest, has been with exertion only -No acute ST segment or T-wave changes on ECG, does show new, narrow junctional rhythm compared to previous ECG's with Bifascicular blocks -TTE showed no wall motion abnormality -Cardiology on board, did not recommend any ischemic workup at this time. Likely demand ischemia (4) Diabetic foot ulcer: Plan: -Patient with progressive right heel diabetic ulcer since last admission in January -Follows with Wound clinic, per their last note on 03/13/22, they ordered an MRI of the right heel due to concerns for progression of ulcer -Per review of last admission her ulcer appears to have progressed -Discontinue daptomycin and cefepime today as no sign of infection -Follow wound culture. -CRP negative. ESR elevated but could be elevated due to other reasons. Procalcitonin negative. X-ray calcaneus did not show any bony destruction to suggest osteomyelitis. -Wound consult on board. No concerns for infection. (5) Left arm pain: Plan: -Patient experienced approximately 20 sec of left biceps muscle pain radiating down her arm which woke her up from sleep at 0300 today -No other radiation of the pain, has experienced this pain before -Unsure of the etiology at this time, could be musculoskeletal from previous left rotator cuff repair, but can't rule out cardiac etiology at this time -Cardiac workup so far negative. Cardiology did not recommend an ischemic workup. -PRN tylenol for pain for now (6) Anemia: Plan: -Hgb currently at 7.6, down from 8.2 as of 01/25 but has been in the 7-8's since last admission -Previously diagnosed with CHUY and B12 deficiency -No recent signs/symptoms of bleeding, not on anticoagulation -Is on PO Iron, B12, and folate, continue for now -Was ordered 1 unit PRBC's by the ED, holding for now Patient's symptoms improved with diuretics. Will hold off on transfusion for now. (7) Leukocytosis: Plan: -Patient noted to have a leukocytosis of 15 that came down Could be stress-induced versus steroid-induced. -Urine culture negative, CXR negative for signs of PNA Discontinue daptomycin and cefepime -Follow wound cultures (8) Dysphagia: Plan: -Speech therapist on board No aspiration or dysphagia noted Diet advanced (9) Uncontrolled diabetes mellitus with hyperglycemia, with long-term current use of insulin: Plan: -Monitor BSG ACHS, goal is 110-140 -Will reduce basal insulin from 54 units lantus BID to 30 BID for now with decreased oral intake -Start CF of 30 with CR of 15 for now -Pharmacy glycemic consult (10) Hypertension: Plan: -Stable -Continue amlodipine (11) Hypercholesteremia: Plan: -Continue statin (12) Hypothyroidism: Plan: -Continue levothyroxine Admission and Anticipated Discharge Date Admission Date: March 19, 2023 Subjective Patient says that she has been feeling better and better every day. However she still gets very winded when she tries to ambulate. Yesterday the nurse tried to walk her. She was able to walk to the door, got very winded, stopped twice and then went back to her chair. During the episode, her heart rate went up to the 80s Review of Systems Review of Systems: All systems reviewed & are unremarkable except as noted in Subjective Physical Exam Physical Exam: General: Awake, conversant. Obese Heart: S1, S2/regular rate and rhythm, no murmur rubs or gallops Lungs: No wheezing. Diminished breath sounds. Normal effort. Abdomen: Soft/nontender/nondistended. No hepatosplenomegaly Extremities: No clubbing/cyanosis. Still with 1-2+ pitting bilateral edema Behavior: Appropriate, cooperative Results & Data Results & Data Vital Signs (Past 12 Hours) Vital Signs Temp Pulse Pulse Resp BP Pulse Ox O2 Del Method 03/22/23 11:42 36.6 C 71 20 150/57 H 95 Room Air 03/22/23 07:55 66 17 98 Room Air 03/22/23 07:51 36.4 C L 66 20 164/78 H 98 Room Air 03/22/23 07:21 63 03/22/23 04:00 36.5 C 67 18 161/89 H 96 Room Air Laboratory Results Abnormal lab results 03/19/23 03/21/23 03/22/23 Range/Units 07:01 20:12 05:29 WBC 11.18 H (4.8-10.8) K/ul RBC 3.13 L (4.20-5.40) M/uL Hgb 7.9 L (12.0-16.0) g/dl Hct 27.2 L (37.0-47.0) % MCHC 29.0 L (32.0-36.0) g/dL RDW Std Deviation 55.1 H (36.4-46.3) fL RDW Coeff of Sylvia 17.6 H (11.5-14.5) % Lymph # (Auto) 4.37 H (1.20-3.40) K/uL [place] # (Auto) 0.83 H (0.11-0.59) K/uL BUN 34 H (6-23) mg/dl Creatinine 2.25 H (0.6-1.2) mg/dl POC Glucose 133 H (70-99) mg/dl Albumin 2.8 L (3.4-5.0) gm/dl Globulin 4.1 H (2.5-4.0) gm/dl Albumin/Globulin Ratio 0.7 L (0.9-2) Crossmatch See Detail 03/22/23 03/22/23 Range/Units 08:08 12:03 WBC (4.8-10.8) K/ul RBC (4.20-5.40) M/uL Hgb (12.0-16.0) g/dl Hct (37.0-47.0) % MCHC (32.0-36.0) g/dL RDW Std Deviation (36.4-46.3) fL RDW Coeff of Sylvia (11.5-14.5) % Lymph # (Auto) (1.20-3.40) K/uL [place] # (Auto) (0.11-0.59) K/uL BUN (6-23) mg/dl Creatinine (0.6-1.2) mg/dl POC Glucose 102 H 152 H (70-99) mg/dl Albumin (3.4-5.0) gm/dl Globulin (2.5-4.0) gm/dl Albumin/Globulin Ratio (0.9-2) Crossmatch PG Care Time/CCT Total # of Minutes Spent Total Time Spent with Patient: Total time spent is greater than 50% in coordination of care (as documented) at patient's floor/unit and/or counseling patient: Coding Level of Care Code 70603 SUB INP/OBS CARE 2/35MIN Diagnoses CHF exacerbation I50.9 SOB (shortness of breath) R06.02 Elevated troponin R79.89 Diabetic foot ulcer E11.621; L97.509 Left arm pain M79.602 Anemia D64.9 Leukocytosis D72.829 Dysphagia, unspecified type R13.10 Dysphagia type: unspecified Uncontrolled diabetes mellitus with hyperglycemia, with long-term current use of insulin E11.65; Z79.4 Essential hypertension I10 Hypertension type: essential hypertension Hypercholesteremia E78.00 Hypothyroidism E03.9 (8) Dysphagia Dysphagia type: unspecified Qualified Code(s): R13.10 - Dysphagia, unspecified (10) Hypertension Hypertension type: essential hypertension Qualified Code(s): I10 - Essential (primary) hypertension
--- NOTE | 2023-03-22 14:31 | Cardiology Progress Note ---
Date of Service March 22, 2023 Assessment & Plan (1) Junctional rhythm: (2) (HFpEF) heart failure with preserved ejection fraction: (3) Asthma: (4) Anemia: (5) Chronic kidney disease, stage III (moderate): Plan Although she did not demonstrate overt heart failure on admission, steadily improving clinical status as she diureses suggests that volume overload may play a significant role in her dyspneic symptoms. Accelerated junctional rhythm with blunted chronotropic response to activity may contribute to dyspnea exertion, but she is able to mount some heart rate response and the fact that she was less dyspneic today (after further diuresis overnight) suggests that volume overload is main factor in her symptoms. Also, ambulation quite limited by her heel ulcer/antalgic gait, so at this point her lifestyle does not seem substantially limited by dyspnea on exertion. Recommend continuing aggressive diuresis while inpatient, with weight-based diuretic regimen upon discharge. No immediate indication for pacemaker, but would recommend MCOT or similar ambulatory cardiac monitoring for several weeks post discharge to further assess chronotropic response to activities of daily living at home (she lives alone). Admission and Anticipated Discharge Date Admission Date: March 19, 2023 Subjective No complaints at rest. No chest pain, dyspnea, palpitations, lightheadedness, or presyncope. Good diuresis overnight (-2 L). Rhythm remains junctional at 70 bpm. Observed/assisted patient ambulating approximately 20 yards, she became moderately dyspneic but was able to catch her breath in about 1 minute. She notes that she had significantly less dyspnea on exertion than yesterday. Heart rate increased to 84 bpm, still with no discernible P waves. Of note, ambulation was impaired as much by her heel ulcer as by dyspnea. Physical Exam Physical Exam: No distress. Mild hypertension. Pulse 70 bpm and regular. Respirations 20 but unlabored. Skin: no ecchymoses or generalized lesions. HEENT: unremarkable. Neck: JVP still mildly elevated, no carotid bruits. Lungs: Clear bilaterally. Cardiac: regular rhythm, normal S1 and intact aortic closure sound, 2/6 basal systolic ejection murmur and 2/6 apical holosystolic murmur. No diastolic murmur. Abdomen: benign. Extremities: trace pretibial edema, pulses intact. Neurologic: normal affect and conversation, nonfocal. Results & Data Vital Signs (Past 12 Hours) Vital Signs Temp Pulse Pulse Resp BP Pulse Ox O2 Del Method 03/22/23 11:42 97.8 F 71 20 150/57 H 95 Room Air 03/22/23 07:55 66 17 98 Room Air 03/22/23 07:51 97.5 F L 66 20 164/78 H 98 Room Air 03/22/23 07:21 63 03/22/23 04:00 97.7 F 67 18 161/89 H 96 Room Air Laboratory Results Normal electrolytes, BUN 34 (33 yesterday), creatinine 2.25 (2.05 yesterday). PG Care Time/CCT Total # of Minutes Spent Total Time Spent with Patient: Total time spent is greater than 50% in coordination of care (as documented) at patient's floor/unit and/or counseling patient: Coding Level of Care Code 43239 SUB INP/OBS CARE 3/50MIN Diagnoses Junctional rhythm I49.8 (HFpEF) heart failure with preserved ejection fraction I50.30 Asthma J45.909 Anemia D64.9 Chronic kidney disease, stage III (moderate) N18.30
[2023-03-22] MEDS: AMITRIPTYLINE HCL 100 MG TAB PO SCH (20:25)
[2023-03-22] MEDS: ACETAMINOPHEN 325 MG TAB PO PRN (20:29)
[2023-03-23] MEDS: LEVOTHYROXINE SODIUM 175 MCG TABLET PO SCH (06:07)
[2023-03-23 06:45] LABS: Hematocrit (blood only) 25.4 % (37.0-47.0); Hemoglobin 7.6 g/dl (12.0-16.0); Mean Corpuscular Hemoglobin 25.8 pg (25.0-34.0); Mean Corpuscular Hgb Conc 29.9 g/dL (32.0-36.0); Mean Corpuscular Volume 86.1 fL (80.0-100.0); Mean Platelet Volume 10.8 fL (9.4-12.4); Platelet Count 394 K/uL (130-400); RDW Coefficient of Variation 17.3 % (11.5-14.5); RDW Standard Deviation 54.4 fL (36.4-46.3); Red Blood Count 2.95 M/uL (4.20-5.40); White Blood Count 10.33 K/ul (4.8-10.8)
[2023-03-23] MEDS: IPRATROPIUM BROMIDE HFA INHALER INH SCH ×2 (07:12→19:19)
[2023-03-23] MEDS: ALBUTEROL HFA 8 GM INHALER INH SCH ×2 (07:12→19:19)
[2023-03-23 07:16] LABS: Calcium 8.7 mg/dl (8.6-10.3); Potassium 3.9 mmol/L (3.5-5.1)
[2023-03-23 07:22] LABS: BUN Creatinine Ratio 15.9 (10-20); Creatinine Clr Calc Pharmacy 37.7 ml/min; Est GFR (African American) 26.1 ml/min; Est GFR (Non-African American) 22.5 ml/min
[2023-03-23] MEDS: PANTOprazole 40 MG TAB PO SCH (08:50)
[2023-03-23] MEDS: BUMETANIDE 2 MG in SYRINGE 0 ML IV SCH ×2 (08:50→17:17)
[2023-03-23] MEDS: FOLIC ACID 1 MG TAB PO SCH (08:50)
[2023-03-23] MEDS: CYANOCOBALAMIN (B-12) 500 MCG TABLET PO SCH (08:50)
[2023-03-23] MEDS: amLODIPine BESYLATE 5 MG TAB PO SCH ×2 (08:50→21:36)
[2023-03-23] MEDS: FERROUS SULFATE 325 MG TAB PO SCH (08:50)
[2023-03-23] MEDS: LANTUS PER UNIT CHARGE SQ SCH ×2 (09:52→21:38)
[2023-03-23] MEDS: INSULIN ASPART PER UNIT CHARGE SC SCH ×4 (09:53→21:39)
--- NOTE | 2023-03-23 13:07 | Hospitalist Progress Note ---
Date of Service March 23, 2023 Assessment & Plan (1) CHF exacerbation: Plan: Acute diastolic CHF Echocardiogram showed normal EF Presented with progressive shortness of breath, dyspnea on exertion, orthopnea, nonproductive cough and weight gain Clinically improving with IV Bumex with improved symptoms Continue the higher dose of IV Bumex to 2 mg IV twice daily. However creatinine is slightly bumped but stable at 2.25 today She still is volume overloaded. Will continue the 2 mg of IV Bumex twice daily for now while watching kidney function closely. Cardiology involved Monitor intake and output and daily weights Cardiology recommends avoiding negative chronotropic's because of persistent junctional rhythm. Cardiology to evaluate the need for pacemaker down the line Cardiology recommends a Holter monitor upon discharge (2) SOB (shortness of breath): Plan: -Has been progressive over the past 2-3 months -Worsening with exertion, relieved with rest -Denies chest pain -Likely due to her CHF exacerbation at this time -Holding PRBC's ordered by ED for now to prevent further volume overload. Patient's symptoms improved with diuresis. --No sign of focal consolidation on CXR, much more consistent with CHF exacerbation -Rest of care per CHF exacerbation (3) Elevated troponin: Plan: -Initial high sen trop elevated at 18 -Patient denies symptoms at rest, has been with exertion only -No acute ST segment or T-wave changes on ECG, does show new, narrow junctional rhythm compared to previous ECG's with Bifascicular blocks -TTE showed no wall motion abnormality -Cardiology on board, did not recommend any ischemic workup at this time. Likely demand ischemia (4) Diabetic foot ulcer: Plan: -Patient with progressive right heel diabetic ulcer since last admission in January -Follows with Wound clinic, per their last note on 03/13/22, they ordered an MRI of the right heel due to concerns for progression of ulcer -Per review of last admission her ulcer appears to have progressed -Discontinue daptomycin and cefepime today as no sign of infection -Follow wound culture. -CRP negative. ESR elevated but could be elevated due to other reasons. Procalcitonin negative. X-ray calcaneus did not show any bony destruction to suggest osteomyelitis. -Wound consult on board. No concerns for infection. (5) Left arm pain: Plan: -Patient experienced approximately 20 sec of left biceps muscle pain radiating down her arm which woke her up from sleep at 0300 today -No other radiation of the pain, has experienced this pain before -Unsure of the etiology at this time, could be musculoskeletal from previous left rotator cuff repair, but can't rule out cardiac etiology at this time -Cardiac workup so far negative. Cardiology did not recommend an ischemic workup. -PRN tylenol for pain for now (6) Anemia: Plan: -Hgb currently at 7.6, down from 8.2 as of 01/25 but has been in the 7-8's since last admission -Previously diagnosed with CHUY and B12 deficiency -No recent signs/symptoms of bleeding, not on anticoagulation -Is on PO Iron, B12, and folate, continue for now -Was ordered 1 unit PRBC's by the ED, holding for now Patient's symptoms improved with diuretics. Will hold off on transfusion for now. (7) Leukocytosis: Plan: -Patient noted to have a leukocytosis of 15 that came down Could be stress-induced versus steroid-induced. -Urine culture negative, CXR negative for signs of PNA Wound cultures are negative. Discontinued all antibiotics. (8) Dysphagia: Plan: -Speech therapist on board No aspiration or dysphagia noted Diet advanced (9) Uncontrolled diabetes mellitus with hyperglycemia, with long-term current use of insulin: Plan: -Monitor BSG ACHS, goal is 110-140 -Will reduce basal insulin from 54 units lantus BID to 30 BID for now with decreased oral intake -Start CF of 30 with CR of 15 for now -Pharmacy glycemic consult (10) Hypertension: Plan: -Stable -Continue amlodipine (11) Hypercholesteremia: Plan: -Continue statin (12) Hypothyroidism: Plan: -Continue levothyroxine Admission and Anticipated Discharge Date Admission Date: March 19, 2023 Subjective Patient says that last evening when she walked with Dr. Graham, she was not as short of breath as the night before. Her dyspnea on exertion is improving with time. She still has significant leg swelling although it is improving. Review of Systems Review of Systems: All systems reviewed & are unremarkable except as noted in Subjective Physical Exam Physical Exam: General: Awake, conversant. Obese Heart: S1, S2/regular rate and rhythm, no murmur rubs or gallops Lungs: No wheezing. Normal effort. Abdomen: Soft/nontender/nondistended. No hepatosplenomegaly Extremities: No clubbing/cyanosis. Still with 1-2+ pitting bilateral edema Behavior: Appropriate, cooperative Results & Data Results & Data Vital Signs (Past 12 Hours) Vital Signs Temp Pulse Pulse Resp BP BP Pulse Ox 03/23/23 11:13 36.5 C 69 18 170/74 H 96 03/23/23 07:39 36.4 C L 78 18 158/78 H 100 03/23/23 07:27 67 03/23/23 07:13 67 18 98 03/23/23 03:54 36.5 C 69 18 170/68 H 95 O2 Del Method 03/23/23 11:13 Room Air 03/23/23 07:39 Room Air 03/23/23 07:27 03/23/23 07:13 Room Air 03/23/23 03:54 Room Air Laboratory Results Abnormal lab results 03/22/23 03/22/23 03/23/23 Range/Units 16:58 20:08 05:28 RBC 2.95 L (4.20-5.40) M/uL Hgb 7.6 L (12.0-16.0) g/dl Hct 25.4 L (37.0-47.0) % MCHC 29.9 L (32.0-36.0) g/dL RDW Std Deviation 54.4 H (36.4-46.3) fL RDW Coeff of Sylvia 17.3 H (11.5-14.5) % Sodium 135 L (136-145) mmol/L Carbon Dioxide 20 L (21-32) mmol/L BUN 36 H (6-23) mg/dl Creatinine 2.26 H (0.6-1.2) mg/dl Glucose 124 H (70-99(Fasting)) mg/dl POC Glucose 157 H 190 H (70-99) mg/dl 03/23/23 03/23/23 Range/Units 07:41 12:09 RBC (4.20-5.40) M/uL Hgb (12.0-16.0) g/dl Hct (37.0-47.0) % MCHC (32.0-36.0) g/dL RDW Std Deviation (36.4-46.3) fL RDW Coeff of Sylvia (11.5-14.5) % Sodium (136-145) mmol/L Carbon Dioxide (21-32) mmol/L BUN (6-23) mg/dl Creatinine (0.6-1.2) mg/dl Glucose (70-99(Fasting)) mg/dl POC Glucose 128 H 205 H (70-99) mg/dl PG Care Time/CCT Total # of Minutes Spent Total Time Spent with Patient: Total time spent is greater than 50% in coordination of care (as documented) at patient's floor/unit and/or counseling patient: Coding Level of Care Code 84899 SUB INP/OBS CARE 2MIN Diagnoses CHF exacerbation I50.9 SOB (shortness of breath) R06.02 Elevated troponin R79.89 Diabetic foot ulcer E11.621; L97.509 Left arm pain M79.602 Anemia D64.9 Leukocytosis D72.829 Dysphagia, unspecified type R13.10 Dysphagia type: unspecified Uncontrolled diabetes mellitus with hyperglycemia, with long-term current use of insulin E11.65; Z79.4 Essential hypertension I10 Hypertension type: essential hypertension Hypercholesteremia E78.00 Hypothyroidism E03.9 (8) Dysphagia Dysphagia type: unspecified Qualified Code(s): R13.10 - Dysphagia, unspecified (10) Hypertension Hypertension type: essential hypertension Qualified Code(s): I10 - Essential (primary) hypertension
--- NOTE | 2023-03-23 14:41 | Cardiology Progress Note ---
Date of Service March 23, 2023 Assessment & Plan (1) Junctional rhythm: (2) (HFpEF) heart failure with preserved ejection fraction: (3) Asthma: (4) Anemia: (5) Chronic kidney disease, stage III (moderate): Plan Steady reduction in symptoms with stable renal function while undergoing significant diuresis. As noted previously, although her rhythm is junctional the rate is quite reasonable and her activity does not seem to be significantly limited by the blunted physiologic response. Would recommend MCOT/ambulatory monitoring for the next several weeks after return home to further assess any correlation between reduced chronotropic competence and exercise/activity limitations. At this point, no clear indication for pacemaker in the absence of pauses or bradycardia. Could discharge on her usual dose of bumetanide 1 mg daily, with weight-based sliding scale to increase to 2 mg daily for any abrupt weight gain (more than 2 pounds in 1 day or more than 5 pounds in 1 week). Will sign off, cardiology follow-up in 3 to 4 weeks, I would be glad to see her in clinic. Admission and Anticipated Discharge Date Admission Date: March 19, 2023 Subjective Uneventful night. Rhythm remains accelerated junctional. Input/output not documented overnight. No complaints at rest. No chest pain, dyspnea, palpitations, lightheadedness, presyncope. Telemetry shows apparent junctional rhythm at 75 bpm (unchanged since admission). No pauses or marked bradycardia. Physical Exam Physical Exam: No distress. Mild hypertension. Pulse 70 bpm and regular. Respirations 18 and unlabored. Skin: no ecchymoses or generalized lesions. HEENT: unremarkable. Neck: JVP minimally, no carotid bruits. Lungs: Clear bilaterally. Cardiac: regular rhythm, normal S1 and intact aortic closure sound, 2/6 basal systolic ejection murmur and 2/6 apical holosystolic murmur. No diastolic murmur. Abdomen: benign. Extremities: trace pretibial edema, pulses intact. Neurologic: normal affect and conversation, nonfocal. Results & Data Laboratory Results Sodium 135, potassium 3.9, BUN 36 (34 yesterday), creatinine 2.26 (2.25 yesterday) PG Care Time/CCT Total # of Minutes Spent Total Time Spent with Patient: Total time spent is greater than 50% in coordination of care (as documented) at patient's floor/unit and/or counseling patient: Coding Level of Care Code 14287 SUB INP/OBS CARE MIN Diagnoses Junctional rhythm I49.8 (HFpEF) heart failure with preserved ejection fraction I50.30 Asthma J45.909 Anemia D64.9 Chronic kidney disease, stage III (moderate) N18.30
[2023-03-23] MEDS: AMITRIPTYLINE HCL 100 MG TAB PO SCH (21:37)
[2023-03-24] MEDS: ACETAMINOPHEN 325 MG TAB PO PRN ×2 (00:57→12:38)
[2023-03-24] MEDS: LEVOTHYROXINE SODIUM 175 MCG TABLET PO SCH (06:34)
[2023-03-24 06:37] LABS: Hematocrit (blood only) 23.1 % (37.0-47.0); Mean Corpuscular Hemoglobin 25.5 pg (25.0-34.0); Mean Corpuscular Hgb Conc 30.3 g/dL (32.0-36.0); Mean Corpuscular Volume 84.3 fL (80.0-100.0); Mean Platelet Volume 10.8 fL (9.4-12.4); Platelet Count 380 K/uL (130-400); RDW Coefficient of Variation 17.2 % (11.5-14.5); RDW Standard Deviation 52.8 fL (36.4-46.3); Red Blood Count 2.74 M/uL (4.20-5.40); White Blood Count 10.83 K/ul (4.8-10.8)
[2023-03-24 06:42] LABS: Calcium 8.6 mg/dl (8.6-10.3); Potassium 3.7 mmol/L (3.5-5.1)
[2023-03-24 06:48] LABS: Est GFR (African American) 24.9 ml/min; Est GFR (Non-African American) 21.5 ml/min
[2023-03-24] MEDS: ALBUTEROL HFA 8 GM INHALER INH SCH ×2 (07:05→19:29)
[2023-03-24] MEDS: IPRATROPIUM BROMIDE HFA INHALER INH SCH ×2 (07:06→19:29)
[2023-03-24] MEDS: FOLIC ACID 1 MG TAB PO SCH (08:23)
[2023-03-24] MEDS: PANTOprazole 40 MG TAB PO SCH (08:23)
[2023-03-24] MEDS: FERROUS SULFATE 325 MG TAB PO SCH (08:23)
[2023-03-24] MEDS: CYANOCOBALAMIN (B-12) 500 MCG TABLET PO SCH (08:23)
[2023-03-24] MEDS: amLODIPine BESYLATE 5 MG TAB PO SCH (08:36)
[2023-03-24] MEDS: LANTUS PER UNIT CHARGE SQ SCH ×2 (09:57→21:18)
[2023-03-24] MEDS: INSULIN ASPART PER UNIT CHARGE SC SCH ×4 (09:57→21:19)
[2023-03-24] MEDS ORDERED: SODIUM CHLORIDE 0.9% 250 ML IV PRN (12:06)
[2023-03-24] MEDS ORDERED: BUMETANIDE 1 MG in SYRINGE 0 ML IV ONE (12:15)
[2023-03-24] MEDS: POLYETHYLENE (MIRALAX) 17 GM PACK PO SCH (12:32)
--- NOTE | 2023-03-24 13:48 | Hospitalist Progress Note ---
Date of Service March 24, 2023 Assessment & Plan (1) CHF exacerbation: Plan: Acute diastolic CHF Echocardiogram showed normal EF Presented with progressive shortness of breath, dyspnea on exertion, orthopnea, nonproductive cough and weight gain Clinically improving with IV Bumex with improved symptoms However creatinine continues to rise. Today creatinine has gone up from 2.25- 2.35. Clinically she is better from a breathing standpoint She still has significant leg swelling however Decided to hold diuretics today but will give a dose of Bumex after blood transfusion Cardiology involved Monitor intake and output and daily weights Cardiology recommends avoiding negative chronotropic's because of persistent junctional rhythm. Cardiology to evaluate the need for pacemaker down the line Cardiology recommends a Holter monitor upon discharge (2) SOB (shortness of breath): Plan: -Has been progressive over the past 2-3 months -Worsening with exertion, relieved with rest -Denies chest pain -Likely due to her CHF exacerbation at this time Improved with diuretics Hemoglobin at 7 today. Decided to give her a unit of blood followed by Bumex (3) Elevated troponin: Plan: -Initial high sen trop elevated at 18 -Patient denies symptoms at rest, has been with exertion only -No acute ST segment or T-wave changes on ECG, does show new, narrow junctional rhythm compared to previous ECG's with Bifascicular blocks -TTE showed no wall motion abnormality -Cardiology on board, did not recommend any ischemic workup at this time. Likely demand ischemia (4) Diabetic foot ulcer: Plan: -Patient with progressive right heel diabetic ulcer since last admission in January -Follows with Wound clinic, per their last note on 03/13/22, they ordered an MRI of the right heel due to concerns for progression of ulcer -Per review of last admission her ulcer appears to have progressed -Discontinue daptomycin and cefepime today as no sign of infection -Follow wound culture. -CRP negative. ESR elevated but could be elevated due to other reasons. Procalcitonin negative. X-ray calcaneus did not show any bony destruction to suggest osteomyelitis. -Wound consult on board. No concerns for infection. (5) Left arm pain: Plan: -Patient experienced approximately 20 sec of left biceps muscle pain radiating down her arm which woke her up from sleep at 0300 today -No other radiation of the pain, has experienced this pain before -Unsure of the etiology at this time, could be musculoskeletal from previous left rotator cuff repair, but can't rule out cardiac etiology at this time -Cardiac workup so far negative. Cardiology did not recommend an ischemic workup. -PRN tylenol for pain for now (6) Anemia: Plan: -Hgb currently at 7.6, down from 8.2 as of 01/25 but has been in the 7-8's since last admission -Previously diagnosed with CHUY and B12 deficiency -No recent signs/symptoms of bleeding, not on anticoagulation -Is on PO Iron, B12, and folate, continue for now -Hemoglobin is at 7 today despite aggressive diuresis in the last few days Will transfuse a unit of blood today, followed by Bumex (7) Leukocytosis: Plan: -Patient noted to have a leukocytosis of 15 that came down Could be stress-induced versus steroid-induced. -Urine culture negative, CXR negative for signs of PNA Wound cultures are negative. Discontinued all antibiotics. (8) Dysphagia: Plan: -Speech therapist on board No aspiration or dysphagia noted Diet advanced (9) Uncontrolled diabetes mellitus with hyperglycemia, with long-term current use of insulin: Plan: -Monitor BSG ACHS, goal is 110-140 -Will reduce basal insulin from 54 units lantus BID to 30 BID for now with decreased oral intake -Start CF of 30 with CR of 15 for now -Pharmacy glycemic consult (10) Hypertension: Plan: -Stable -Continue amlodipine (11) Hypercholesteremia: Plan: -Continue statin (12) Hypothyroidism: Plan: -Continue levothyroxine Admission and Anticipated Discharge Date Admission Date: March 19, 2023 Subjective Patient is breathing better overall. She tells me that she was able to work with therapy without feeling much short of breath. Her dyspnea on exertion has certainly improved. She still has significantly swollen legs. Review of Systems Review of Systems: All systems reviewed & are unremarkable except as noted in Subjective Physical Exam Physical Exam: General: Awake, conversant. Obese Heart: S1, S2/regular rate and rhythm, no murmur rubs or gallops Lungs: No wheezing. Normal effort. Abdomen: Soft/nontender/nondistended. No hepatosplenomegaly Extremities: No clubbing/cyanosis. Still with 1-2+ pitting bilateral edema Behavior: Appropriate, cooperative Results & Data Results & Data Vital Signs (Past 12 Hours) Vital Signs Temp Pulse Pulse Resp BP Pulse Ox O2 Del Method 03/24/23 11:47 36.4 C L 70 17 158/76 H 98 Room Air 03/24/23 08:18 Room Air 03/24/23 07:49 36.7 C 68 18 182/62 H 98 Room Air 03/24/23 07:43 70 03/24/23 07:06 69 18 96 Room Air 03/24/23 04:35 36.6 C 71 20 181/73 H 97 Room Air Laboratory Results Abnormal lab results 03/23/23 03/23/23 03/24/23 Range/Units 17:02 21:20 05:34 WBC 10.83 H (4.8-10.8) K/ul RBC 2.74 L (4.20-5.40) M/uL Hgb 7.0 L (12.0-16.0) g/dl Hct 23.1 L (37.0-47.0) % MCHC 30.3 L (32.0-36.0) g/dL RDW Std Deviation 52.8 H (36.4-46.3) fL RDW Coeff of Sylvia 17.2 H (11.5-14.5) % Sodium 135 L (136-145) mmol/L Carbon Dioxide 20 L (21-32) mmol/L BUN 40 H (6-23) mg/dl Creatinine 2.35 H (0.6-1.2) mg/dl Glucose 179 H (70-99(Fasting)) mg/dl POC Glucose 206 H 195 H (70-99) mg/dl Crossmatch 03/24/23 03/24/23 03/24/23 Range/Units 08:28 12:15 12:19 WBC (4.8-10.8) K/ul RBC (4.20-5.40) M/uL Hgb (12.0-16.0) g/dl Hct (37.0-47.0) % MCHC (32.0-36.0) g/dL RDW Std Deviation (36.4-46.3) fL RDW Coeff of Sylvia (11.5-14.5) % Sodium (136-145) mmol/L Carbon Dioxide (21-32) mmol/L BUN (6-23) mg/dl Creatinine (0.6-1.2) mg/dl Glucose (70-99(Fasting)) mg/dl POC Glucose 172 H 186 H (70-99) mg/dl Crossmatch See Detail PG Care Time/CCT Total # of Minutes Spent Total Time Spent with Patient: Total time spent is greater than 50% in coordination of care (as documented) at patient's floor/unit and/or counseling patient: Coding Level of Care Code 58948 SUB INP/OBS CARE 2/35MIN Diagnoses CHF exacerbation I50.9 SOB (shortness of breath) R06.02 Elevated troponin R79.89 Diabetic foot ulcer E11.621; L97.509 Left arm pain M79.602 Anemia D64.9 Leukocytosis D72.829 Dysphagia, unspecified type R13.10 Dysphagia type: unspecified Uncontrolled diabetes mellitus with hyperglycemia, with long-term current use of insulin E11.65; Z79.4 Essential hypertension I10 Hypertension type: essential hypertension Hypercholesteremia E78.00 Hypothyroidism E03.9 (8) Dysphagia Dysphagia type: unspecified Qualified Code(s): R13.10 - Dysphagia, unspecified (10) Hypertension Hypertension type: essential hypertension Qualified Code(s): I10 - Essential (primary) hypertension
--- NOTE | 2023-03-24 13:50 | Pharmacy Report ---
Pharmacy Glycemic Short Note 2 - Date of Service March 24, 2023 - Glycemic Short BSG Results (Last 24 hours): 03/23/23 03/23/23 03/24/23 17:02 21:20 05:34 Glucose 179 H POC Glucose 206 H 195 H 03/24/23 03/24/23 08:28 12:19 Glucose POC Glucose 172 H 186 H OUTPATIENT ANTIDIABETIC REGIMEN: * Lantus 54 units SC BID (per patient), on discharge 01/16/23 Lantus 22 units SC BID * Novolog 45 units SC with breakfast, 40 units SC with lunch, and 35 units SC with dinner (per patient) plus SS (BSG goal 120-150 CF 20 CR 7) per patient * HbA1c: 9.0% (03/20/22) ASSESSMENT: 03/24: * Aleaxndria received 47 units of insulin yesterday, 25 basal + 22 bolus. BSGs were: [phone] mg/dL. * Fasting BSG was 172 mg/dL this AM. Will increase basal by 20% today. * Novolog will be tightened as well given postprandials above goal yesterday. 03/22: * Patient received total of 57 units of insulin yesterday, of which 30 units were basal * Fasting BSG trending down this AM 97 mg/dl - may scale back on basal slightly today * BSGs improving more yesterday, may scale back on novolog 03/21: * BSGs reasonably well-controlled over past 36 hours * Received 44 units of insulin yesterday (30 units of basal and 14 units of prandial/correctional bolus) * Do not anticipate any changes to glycemic regimen today 03/20: * Alexandria is a 62 YOF admitted with CHF exacerbation/diabetic foot ulcer and a history of T2DM. Pharmacy has been consulted for glycemic management while inpatient. She was hypoglycemic on admission and treated with 1 amp of D50W. * Fasting BSG this AM within goal range. Clear liquid diet advanced to T2DM after swallow evaluation. Lantus started at decreased dose due to diet, will continue for now and monitor with diet advancement. She was receiving 22 units of Lantus BID in January during her admission. She was hypoglycemic on admission, will make adjustments conservatively * She is on cefepime and daptomycin for a diabetic foot ulcer. * Will begin previously successful NovoLog parameters from January admission. PLAN FOR INPATIENT GLYCEMIC CONTROL: * Basal insulin * Lantus 15 units SC BID * Bolus insulin * NovoLog per scale ACHS or Q6hrs while NPO * Goal Range: Low 110 mg/dL - High 140 mg/dL * Correction Factor: 20 mg/dL/unit * Nutritional / Prandial insulin per carb ratio of 1 unit per 7 grams CHO consumed
[2023-03-24] MEDS: FLUTICASONE PROPIONATE NA SPR 16 GM BTL SCH (14:34)
[2023-03-24] MEDS: DOCUSATE SODIUM 100 MG CAP PO SCH (20:33)
[2023-03-24] MEDS: AMITRIPTYLINE HCL 100 MG TAB PO SCH (20:33)
[2023-03-25] MEDS: ACETAMINOPHEN 325 MG TAB PO PRN ×3 (00:48→19:25)
[2023-03-25] MEDS: LEVOTHYROXINE SODIUM 175 MCG TABLET PO SCH (05:37)
[2023-03-25] MEDS: IPRATROPIUM BROMIDE HFA INHALER INH SCH (07:09)
[2023-03-25] MEDS: ALBUTEROL HFA 8 GM INHALER INH SCH (07:09)
[2023-03-25 07:43] LABS: Hematocrit (blood only) 26.2 % (37.0-47.0); Hemoglobin 7.9 g/dl (12.0-16.0); Mean Corpuscular Hemoglobin 25.8 pg (25.0-34.0); Mean Corpuscular Hgb Conc 30.2 g/dL (32.0-36.0); Mean Corpuscular Volume 85.6 fL (80.0-100.0); Mean Platelet Volume 10.7 fL (9.4-12.4); Platelet Count 373 K/uL (130-400); RDW Coefficient of Variation 17.2 % (11.5-14.5); RDW Standard Deviation 52.6 fL (36.4-46.3); Red Blood Count 3.06 M/uL (4.20-5.40); White Blood Count 11.99 K/ul (4.8-10.8)
[2023-03-25 08:00] LABS: BUN Creatinine Ratio 18.8 (10-20); Creatinine Clr Calc Pharmacy 37.9 ml/min; Est GFR (African American) 26.4 ml/min; Est GFR (Non-African American) 22.8 ml/min; Potassium 3.8 mmol/L (3.5-5.1)
[2023-03-25 08:19] LABS: Calcium 8.8 mg/dl (8.6-10.3)
[2023-03-25] MEDS: LANTUS PER UNIT CHARGE SQ SCH ×2 (09:02→21:03)
[2023-03-25] MEDS: INSULIN ASPART PER UNIT CHARGE SC SCH ×4 (09:02→21:03)
[2023-03-25] MEDS: BUMETANIDE 1 MG TAB PO SCH (09:03)
[2023-03-25] MEDS: CYANOCOBALAMIN (B-12) 500 MCG TABLET PO SCH (09:04)
[2023-03-25] MEDS: FOLIC ACID 1 MG TAB PO SCH (09:04)
[2023-03-25] MEDS: PANTOprazole 40 MG TAB PO SCH (09:04)
[2023-03-25] MEDS: FERROUS SULFATE 325 MG TAB PO SCH (09:04)
[2023-03-25] MEDS: DOCUSATE SODIUM 100 MG CAP PO SCH ×2 (09:04→22:00)
[2023-03-25] MEDS: amLODIPine BESYLATE 5 MG TAB PO SCH (09:05)
[2023-03-25] MEDS: FLUTICASONE PROPIONATE NA SPR 16 GM BTL SCH (09:05)
[2023-03-25] MEDS: POLYETHYLENE (MIRALAX) 17 GM PACK PO SCH (09:05)
--- NOTE | 2023-03-25 11:24 | Discharge Summary ---
Date of Service March 25, 2023 Admission HPI Per Admitting Provider Alexandria is a 62 y/o female with a PMHx of DM, diabetic ulcers, HFrEF, CKD, iron deficiency anemia, dysphagia, GERD, HTN, HLD, and hypothyroidism who presented to the [facility] ED via EMS with complaints of SOB and left arm pain. She remained stable in the ED. Labs were significant for a leukocytosis of 15 with left shift of 9.0, Hgb 7.5 (down from 8.2 as of 01/25), Cr of 2.09 (baseline is near 1.8), BUN of 34, bicarb of 19, alk phos of 113, initial high sen trop of 18, BNP of 578 (up from 67 as of 01/28). Chest xray was read as Cardiomegaly and mild pulmonary edema.. ECG shows a junctional rhythm without acute ST segment or T- wave changes. Prior to admission the patient was given a dose of Ceftriaxone, 250 mL NSS, ordered one unit of PRBC's. She was last admitted to [facility] from 01/12-01/16 for her right diabetic heel ulcer, dysphagia, and worsening chronic anemia. For her right heel ulcer, outpatient wound cultures were found to have grown MSSA in late December. She was treated initially with IV antibiotics and eventually discharged on a 10 day course of Keflex without outpatient wound clinic follow-up. She was evaluated by GI for dysphagia. Last colonoscopy in February 2022 showed one 3 mm rectal polyp which was resected diverticulosis, and non-bleeding internal hemorrhoids. GI recommended starting BID PPI and outpatient EGD on discharge. Her workup for chronic anemia was consistent with Iron deficiency, B12 deficiency, and low- normal folate level. She was started on PO Iron, B12, and folate prior to discharge. At the time of the exam the patient was sitting in the bedside chair in no acute distress. She states that she has been experiencing progressive SOB, TOLBERT, orthopnea, and non-productive cough over the past 2-3 months. When asked, she states that she started developing these symptoms on her last admission but they are significantly worse over the past week. She states that she feels as though she has been gaining weight and is more swollen recently. She has been taking her 1mg PO Bumex daily and trying to limit her sodium intake. This am she states that she experienced approximately 20 seconds of left arm pain. She described the pain as sharp/Stabbing, starting in the left biceps muscle and radiating down her left arm. She denies chest pain, shoulder/jaw, neck pain, or pain in the back or other upper extremity. She states that she is unsure if this pain is related to her left rotator cuff repair previously but confirms that she has experienced this pain before. She denies pain/TOLBERT/SOB at rest but states she has been significantly TOLBERT with minimal effort recently. She has been so swollen that she has been unable to bend over to care for her right heel ulcer. Regarding her chronic dysphagia, she continues to experience dysphagia with solids but can tolerate liquids. She has had a few episodes of aspiration in the recent past and has not been able to see GI outpatient yet. She has been unable to get the MRI of the right heel ordered by the wound clinic as she does not have a ride. She denies recent fever, chills, chest pain, hemoptysis, abd pain, nausea, vomiting, diarrhea, dysuria, hematuria, melena, bloody BM's, and recent trauma. She is a full code and would want her brother to make medical decisions for her if she cannot make them herself. Please refer to Dr. Rodriguez's attestation for any changes to the treatment plan Admission Exam Per Admitting Provider General: In no acute distress, stated age, morbidly obese, poor hygiene, non- toxic appearing HEENT: Normocephalic, atraumatic, no scleral icterus, pupils around round, symmetrical, and reactive to light, moist mucus membranes, trachea midline, no thyromegaly Chest/Pulm: No respiratory distress, symmetrical chest expansion, auscultation difficult with body habitus but patient with decreased breath sounds in the BL lower lung field with crackles in all other lung doss. Cardiac: RRR, 4/6 systolic murmur noted Abdomen: Negative for ascites and bruising, normoactive bowel sounds, soft, non- tender to palpation throughout Musculoskeletal: Symmetrical and without signs of acute trauma, upper and lower extremities with full ROM, no atrophy, spasticity, or flaccidity Extremities: Radial, dorsalis pedis, and posterior tibial pulses are intact and symmetrical, BL LE's are firm due to significant edema Skin: Pale, patient with worsening right heel ulcer with increased erythema and skin breakdown compared to images on last admission, see image below, no current draining Neuro: Alert and oriented to person, place, month, year, and president, no focal defects, no tremors noted Psych: No acute distress, calm and cooperative during the exa Principal Diagnosis Acute diastolic CHF with volume overload Iron deficiency anemia, requiring transfusion Junctional arrhythmia Discharge Exam General: Awake, conversant. Obese Heart: S1, S2/regular rate and rhythm, no murmur rubs or gallops Lungs: No wheezing. Normal effort. Abdomen: Soft/nontender/nondistended. No hepatosplenomegaly Extremities: No clubbing/cyanosis. Still with 1+ pitting bilateral edema Behavior: Appropriate, cooperative Discharge Data Allergies Allergy/AdvReac Type Severity Reaction Status Date / Time amoxicillin Allergy Intermediate hives Verified 03/13/23 13:02 dextromethorphan Allergy Intermediate Hives Verified 03/13/23 13:02 [From NyQuil] doxylamine [From NyQuil] Allergy Intermediate Hives Verified 03/13/23 13:02 latex Allergy Intermediate RASH Verified 03/13/23 13:02 Sulfa (Sulfonamide Allergy Intermediate RASH Verified 03/13/23 13:02 Antibiotics) clarithromycin AdvReac Intermediate HEART RACES Verified 03/13/23 13:02 Arnshane's multigrain bread Allergy Intermediate Hives Uncoded 03/13/23 13:02 Consultations 03/19/23 10:50 ED Decision to Admit Stat 03/19/23 11:43 Consult Cardiology Routine 03/25/23 08:07 [facility] [place] [facility] [place] Ordered Studies 03/20/23 13:00 FL video swallow Routine Hospital Course (1) CHF exacerbation: Acute diastolic CHF Echocardiogram showed normal EF Presented with progressive shortness of breath, dyspnea on exertion, orthopnea, nonproductive cough and weight gain Clinically improved with IV Bumex Creatinine went up to as high as 2.35. And then trended back down Clinically she is better from a breathing standpoint Not requiring oxygen with ambulation She still has significant leg swelling however Cardiology involved Cardiology recommends avoiding negative chronotropic's because of persistent junctional rhythm. Cardiology to evaluate the need for pacemaker down the line Cardiology recommends a Holter monitor upon discharge Cardiology recommended discharge on 1 mg of p.o. Bumex with in additional dose as needed for weight gain. Recommended to follow-up with PCP in 1 week, with cardiology in 2 to 3 weeks and with CHF clinic in 1 week. (2) SOB (shortness of breath): -Has been progressive over the past 2-3 months -Worsening with exertion, relieved with rest -Denies chest pain -Likely due to her CHF exacerbation at this time Improved with diuretics Hemoglobin was 7 on 03/24, responded to a unit of blood transfusion. Today 7.9 hemoglobin (3) Elevated troponin: -Initial high sen trop elevated at 18 -Patient denies symptoms at rest, has been with exertion only -No acute ST segment or T-wave changes on ECG, does show new, narrow junctional rhythm compared to previous ECG's with Bifascicular blocks -TTE showed no wall motion abnormality -Cardiology on board, did not recommend any ischemic workup at this time. Likely demand ischemia (4) Diabetic foot ulcer: -Patient with progressive right heel diabetic ulcer since last admission in January -Follows with Wound clinic, per their last note on 03/13/22, they ordered an MRI of the right heel due to concerns for progression of ulcer -Per review of last admission her ulcer appears to have progressed -Discontinue daptomycin and cefepime as no sign of infection Wound culture negative -CRP negative. ESR elevated but could be elevated due to other reasons. Procalcitonin negative. X-ray calcaneus did not show any bony destruction to suggest osteomyelitis. -Wound consult on board. No concerns for infection. Follow-up with wound care outpatient (5) Left arm pain: -Patient experienced approximately 20 sec of left biceps muscle pain radiating down her arm which woke her up from sleep at 0300 today -No other radiation of the pain, has experienced this pain before -Unsure of the etiology at this time, could be musculoskeletal from previous left rotator cuff repair, but can't rule out cardiac etiology at this time -Cardiac workup so far negative. Cardiology did not recommend an ischemic workup. -PRN tylenol for pain for now (6) Anemia: -Hgb on admission at 7.6, down from 8.2 as of 01/25 but has been in the 7-8's since last admission -Previously diagnosed with CHUY and B12 deficiency -No recent signs/symptoms of bleeding, not on anticoagulation -Is on PO Iron, B12, and folate, continue for now -Patient was transfused a unit of blood on 03/24 due to hemoglobin being at 7. Responded with hemoglobin of 7.9 today (7) Leukocytosis: -Patient noted to have a leukocytosis of 15 that came down Could be stress-induced versus steroid-induced. -Urine culture negative, CXR negative for signs of PNA Wound cultures are negative. Discontinued all antibiotics. (8) Dysphagia: -Speech therapist on board No aspiration or dysphagia noted Diet advanced (9) Uncontrolled diabetes mellitus with hyperglycemia, with long-term current use of insulin: -Discharged with home regimen (10) Hypertension: -Stable -Continue amlodipine, and increase the dose for better blood pressure control (11) Hypercholesteremia: -Continue statin (12) Hypothyroidism: -Continue levothyroxine Plan Discharge today Total Time Total Time Spent Total Time Spent (In Minutes): 35 Discharge Plan Discharge Items Patient Disposition: Home - Home Health Services Reason For Visit: SOB, LEUKOCYTOSIS Discharge Diagnosis: Acute diastolic CHF with volume overload Iron deficiency anemia, requiring transfusion Junctional arrhythmia Activity: Resume your previous activity Non-emergency contact: Primary Care Provider Call non-emergency contact if: you have any medication questions and your symptoms worsen Follow-up/Referrals: Dakota Graham MD [Physician] - (See Cardiology in 3 weeks and Holter monitor will be arranged for you outpatient. Your cardiology office will call you.) Natali Langston DO [Primary Care Provider] - (PLEASE CALL YOUR PRIMARY CARE PROVIDER TO SCHEDULE A HOSPITAL DISCHARGE FOLLOW-UP APPOINTMENT WITHIN 7-10 DAYS) Zoraida aCrver PA-C [Physician Material Planner] - Diet: Carb Consistent or DM2, Heart Healthy and Low Sodium (2gm) Addtl Attending Provider Instructions: Advised to follow-up with PCP in 1 week and cardiology in 3 weeks Holter monitor will be arranged for you outpatient. Your cardiology office will call you Advised to note that you are being discharged on Bumex 1mg daily. If you notice any abrupt weight gain (more than 2 pounds in 1 day or more than 5 pounds in 1 week), take an extra Bumex 1 mg tablet. Advised to follow-up with the CHF clinic. Pending Studies at Discharge: No Stand-Alone Forms: [facility] FIGS Medications and DC Order Prescriptions: New amlodipine [Norvasc] 5 mg Tablet 10 mg PO QAM Qty: 30 0RF Continued Trulicity 1.5 mg/0.5 mL pen injector 1.5 mg subcut WK Rx Instructions: Sunday Farxiga 5 mg tablet 5 mg PO QAM Qty: 90 0RF bumetanide 1 mg tablet 1 mg PO QAM Qty: 90 3RF (DME) FreeStyle Precision Perico Strips Strip See Rx Instructions .Route Rx Instructions: Test once daily with Freestyle Davy PRN (DME) FreeStyle Davy 14 Day Sensor Kit See Rx Instructions .Route Rx Instructions: As directed (DME) FreeStyle Davy 14 Day [place] Misc See Rx Instructions .Route Rx Instructions: As directed (DME) pen needle, diabetic [BD Ultra-Fine Siria Pen Needle] 32 gauge x 5/32" needle See Rx Instructions .Route Rx Instructions: Use 4 per day with insulin injection (DME) lancets [[employer] Lancets] 30 gauge misc See Rx Instructions .Route Rx Instructions: Test blood sugar once daily PRN loratadine 10 mg tablet 10 mg PO DAILY PRN (Reason: Allergy Symptoms) levothyroxine [Synthroid] 175 mcg Tablet 175 mcg PO QAM fluticasone propionate 50 mcg/actuation [place],Suspension 1 spray INTRANASAL QAM atorvastatin 80 mg tablet 80 mg PO HS amitriptyline 50 mg Tablet 100 mg PO HS albuterol sulfate 90 mcg/actuation HFA aerosol inhaler 1 - 2 puff INHALATION QID PRN (Reason: ASTHMA) cyanocobalamin (vitamin B-12) 1,000 mcg tablet 1,000 mcg PO DAILY Qty: 30 5RF folic acid 1 mg tablet 1,000 mcg PO DAILY Qty: 30 0RF Rx Instructions: stop after 30 days. melatonin 3 mg tablet 3 mg PO HS Qty: 30 0RF ferrous sulfate 325 mg (65 mg iron) tablet 325 mg PO DAILY Qty: 30 1RF albuterol sulfate 90 mcg/actuation HFA aerosol inhaler 2 puff INHALATION QID PRN (Reason: wheezing ) Combivent Respimat 20-100 mcg/actuation mist 2 puff INHALATION BID omeprazole 20 mg capsule,delayed release(DR/EC) 20 mg PO DAILY cholecalciferol (vitamin D3) 50 mcg (2,000 unit) capsule 50 mcg PO QAM insulin glargine [Lantus U-100 Insulin] 100 unit/mL solution 54 unit subcut BID insulin aspart U-100 [Novolog FlexPen U-100 Insulin] 100 unit/mL (3 mL) insulin pen 0 sliding scale dose subcut TIDM Rx Instructions: PER PT "TAKE 45 UNITS BREAKFAST, 40 UNITS LUNCH, THEN 35 UNITS DINNER. For meal-time use. Use following parameters. BSG goal = 120-150. Correction factor = 20. Carbohydrate ratio = 1 unit of novolog for every 7 grams of carbs consumed. Discontinued amlodipine 2.5 mg tablet 2.5 mg PO BID Qty: 60 0RF Discharge Orders: Discharge Order- CHF (Routine); Ordered 03/25/23 Ordered By: Leandro Menon Admission Data Admit Date/Time: 03/19/23 10:27 Attending Provider: Leandro Menon Admit Provider: Eladio Rodriguez Primary Care Provider: Natali Langston Other Providers: Eladio Rodriguez; Dakota Graham; [facility]; [facility],Referral Center; Zoraida Carver Coding Level of Care Code 49021 INP/OBS DISCH >30 MIN Diagnoses CHF exacerbation I50.9 SOB (shortness of breath) R06.02 Elevated troponin R79.89 Diabetic foot ulcer E11.621; L97.509 Left arm pain M79.602 Anemia D64.9 Leukocytosis D72.829 Dysphagia, unspecified type R13.10 Dysphagia type: unspecified Uncontrolled diabetes mellitus with hyperglycemia, with long-term current use of insulin E11.65; Z79.4 Essential hypertension I10 Hypertension type: essential hypertension Hypercholesteremia E78.00 Hypothyroidism E03.9
[2023-03-25] MEDS: AMITRIPTYLINE HCL 100 MG TAB PO SCH (21:03)
[2023-03-26] MEDS: IPRATROPIUM BROMIDE HFA INHALER INH SCH (05:11)
[2023-03-26] MEDS: LEVOTHYROXINE SODIUM 175 MCG TABLET PO SCH (05:11)
[2023-03-26] MEDS: ALBUTEROL HFA 8 GM INHALER INH SCH (05:12)
[2023-03-26 09:03] LABS: Hematocrit (blood only) 28.5 % (37.0-47.0); Hemoglobin 8.4 g/dl (12.0-16.0); Mean Corpuscular Hemoglobin 25.5 pg (25.0-34.0); Mean Corpuscular Hgb Conc 29.5 g/dL (32.0-36.0); Mean Corpuscular Volume 86.4 fL (80.0-100.0); Mean Platelet Volume 10.6 fL (9.4-12.4); Platelet Count 369 K/uL (130-400); RDW Coefficient of Variation 17.2 % (11.5-14.5); RDW Standard Deviation 54.1 fL (36.4-46.3); White Blood Count 11.17 K/ul (4.8-10.8)
[2023-03-26 09:20] LABS: BUN Creatinine Ratio 17.1 (10-20); Creatinine Clr Calc Pharmacy 35.4 ml/min; Est GFR (African American) 24.3 ml/min; Est GFR (Non-African American) 20.9 ml/min; Magnesium 1.8 mg/dl (1.7-2.4); Potassium 4.2 mmol/L (3.5-5.1)
[2023-03-26] MEDS: ACETAMINOPHEN 325 MG TAB PO PRN (09:23)
[2023-03-26] MEDS: INSULIN ASPART PER UNIT CHARGE SC SCH (09:23)
[2023-03-26] MEDS: LANTUS PER UNIT CHARGE SQ SCH (09:24)
[2023-03-26] MEDS: FOLIC ACID 1 MG TAB PO SCH (09:25)
[2023-03-26] MEDS: BUMETANIDE 1 MG TAB PO SCH (09:25)
[2023-03-26] MEDS: FERROUS SULFATE 325 MG TAB PO SCH (09:25)
[2023-03-26] MEDS: CYANOCOBALAMIN (B-12) 500 MCG TABLET PO SCH (09:25)
[2023-03-26] MEDS: amLODIPine BESYLATE 5 MG TAB PO SCH (09:25)
[2023-03-26] MEDS: DOCUSATE SODIUM 100 MG CAP PO SCH (09:25)
[2023-03-26] MEDS: POLYETHYLENE (MIRALAX) 17 GM PACK PO SCH (09:26)
[2023-03-26] MEDS: FLUTICASONE PROPIONATE NA SPR 16 GM BTL SCH (09:26)
[2023-03-26] MEDS: PANTOprazole 40 MG TAB PO SCH (09:26)
[2023-03-26 09:39] LABS: Ferritin 33.8 ng/ml (8-388)
[2023-03-26] MEDS ORDERED: IRON SUCROSE 300 MG in SODIUM CHLORIDE 0.9% 250 ML IV ONE (10:00)
[2023-03-26] MEDS ORDERED: PHARMACY GLYCEMIC MGMT CONSULT PRN (11:55)
== END 2023-03-26 15:30 | disposition home health service (06) | DRG 291 ==
LOC: ED 05:43 → SUATTDRO 10:27 → 2N 10:27 → UNDODISIN 03-25 14:58

== ENCOUNTER 2023-04-09 22:25 | Observation (INO) ==
--- NOTE | 2023-04-10 00:11 | Emergency Department Note ---
Impression & Plan Ambulatory dysfunction, Anemia I discussed the case with the [facility] ED Provider Note NAME: JASPER AIKEN AGE: 62 SEX: Female INFORMANT: Patient ED PROVIDER(S): Melissa Tan DO CHIEF COMPLAINT: Fall PLAN: Disposition: Patient will be admitted by the [facility] MEDICAL DECISION MAKING: This is a 62-year-old female patient who was getting out of the bathtub when she unfortunately fell because the bar on the side of the bathtub was loose. She hit her head on the tile around the bathtub along with her right shoulder, right hip and the right side of her body. She was unable to get up off the floor and had to call EMS. Upon arrival here to the emergency department, she had no significant outward signs of trauma. Laboratory studies were essentially stable for the patient. She had no significant leukocytosis. Hemoglobin was 8.6 which is slightly improved from when she was just here as an inpatient. Creatinine was 2.1 which is baseline for the patient. BUN was slightly elevated at 13 7. The patient's past potassium was 5.4. Patient went for CT scan of the brain and cervical spine which showed no evidence of acute traumatic injury. She was given a dose of oral Tylenol for pain. Patient told the nurses and myself that she was unable to be discharged home because she did not feel safe ambulating about her home for fear of falling anymore. She would like to be admitted to an inpatient facility to care for her. The demand manager spoke with the patient and she will require admission to the hospital for possible transfer back to [facility] Care/management discussed with: demand manager and the [facility] Triage Nursing notes: Reviewed and agree with them. Vital Signs: reviewed and remarkable for hypertension and tachycardia Chronic Medical/Social Conditions affecting care: Morbid obesity, CHF, anemia Prior/ Outside/ External records reviewed: Recent admission to the hospital for anemia and CHF Differential Diagnosis: Skull fracture, intracranial trauma, C-spine injury, worsening anemia Diagnostics, independently interpreted by me: ECG: Normal sinus rhythm at a rate of 77 with right bundle branch block. It was difficult to see the P waves on the twelve-lead EKG but I was in the room at the same time this twelve-lead was done and on the data warehousing specialist, the P waves were apparent. There were no signs of ST segment elevation and no signs of ischemia Cardiac Monitoring: Normal sinus rhythm at 75 Imaging studies: CT scan of the brain: As per stat rad CT scan of the cervical spine: As per stat rad HPI: 62 year old Female arrives for evaluation of fall. Patient slipped in her tub and fell backwards striking her head on some tile. She did not lose consciousness. She now complains of pain in her head, neck and the right side of her body. PAST MEDICAL HISTORY: See Below, PAST SURGICAL HISTORY: See Below, SOCIAL HISTORY: See Below, HOME MEDICATIONS: See list ALLERGIES: See list VITALS: See Below PHYSICAL EXAMINATION: HEENT: Head - normocephalic and atraumatic. Pupils are equal, round, and reactive to light. Extraocular eye muscles are intact, and sclera are anicteric. Nose - moist nasal mucosa without discharge. Mouth - moist buccal mucosa. Oropharynx is nonerythematous and there is no tonsillar exudate or edema noted. Neck: Patient has some mild discomfort with palpation over the right cervical spine. Heart: Regular rate and rhythm. There is a normal S1 and S2 with no murmurs, clicks, or gallops appreciated. Lungs: Clear to auscultation bilaterally with no wheezes, rales, or rhonchi. Abdomen: Soft, completely nontender, nondistended, with good bowel sounds. There are no palpable pulsatile masses or hepatosplenomegaly. There is no guarding, rigidity, or rebound noted. Extremities: Significant lymphedema of the lower extremities but no obvious signs of trauma. She has a pressure ulcer to the right heel. Skin: Extremely pale, warm and dry with good turgor and no rashes. Emergency department course: The patient was evaluated in room B-6. A complete history and physical was performed. Labs were drawn as above. The patient went for CT scan of the brain and cervical spine. Twelve-lead EKG was obtained. Order was placed for continuous cardiac monitoring. The patient was in a normal sinus rhythm at a rate of 75. Patient was given Tylenol for her head pain. I reviewed results of the labs with the patient and then results of the CT scan. I discussed the case with the demand manager and they spoke with the patient. I then discussed the case with the [facility] Hospitalist. Past Med/Surg History Medical History Pseudomonas infection History of anesthesia reaction woke up during shoulder arthroscopy Peritonsillar abscess recent admission @ [facility] 01/29/22 for this--per pt has finished all antibiotics for this, no further issues at this time Chronic kidney disease, stage III (moderate) SOB (shortness of breath) RBBB Hypoxia Hyperglycemia due to type 2 diabetes mellitus Pneumonia due to COVID-19 virus COVID-19 hx of in 2019--per pt was hospitalized for COVID--states no symptoms currently Bifascicular block Foot drop LEFT Chronic back pain Osteoarthritis Hx of irritable bowel syndrome Cataract Bilateral Umbilical hernia Hiatal hernia PTSD (post-traumatic stress disorder) History of diverticulitis Tear of medial meniscus of right knee, current Morbid obesity with BMI of 50.0-59.9, adult Diabetes mellitus with hyperglycemia, with long-term current use of insulin Neck pain Narrowing of C6-C7 with bone spurs. CAUSES NUMBNESS IN LEFT ARM GERD (gastroesophageal reflux disease) Depression Anxiety Hyperlipidemia Hypertension Asthma COLD WEATHER FLARES UP/DENIES RECENT FLARE UP/ALBUTEROL ONLY PRN History of migraine Hyperosmolar hyponatremia Fibromyalgia Hypothyroidism Surgical History History of repair of right rotator cuff History of repair of left rotator cuff History of repair of ACL L S/P rotator cuff repair History of arthroscopy of right shoulder History of dilatation and curettage History of repair of ACL R History of esophagogastroduodenoscopy (EGD) History of colonoscopy History of D&C Family History Grandfather Diabetes Mother Myocardial infarction Heart disease Tobacco abuse Hx of CABG Family/Other Family history of diabetes mellitus Brother Family history of diabetes mellitus Father Aortic aneurysm Grandmother (Paternal) Cerebral aneurysm Stroke Other Family history of colon cancer in mother Social History Smoking Status: Never smoker Second Hand Exposure: Yes; Do You Dip or Chew Tobacco: No; Hx Alcohol Use: No Hx Substance Use: No Preferred Language: Swedish Communication Ability: Effective Visual Impairment: No Limitations Mannequin Maker Required: No Beliefs That Will Affect Care: None marital status: Current Living Situation: Alone Feels Safe at Home: Yes Assistive Devices: Glasses and Walker Allergies Allergies Allergy/AdvReac Type Severity Reaction Status Date / Time amoxicillin Allergy Intermediate hives Verified 04/05/23 13:51 dextromethorphan Allergy Intermediate Hives Verified 04/05/23 13:51 [From NyQuil] doxylamine [From NyQuil] Allergy Intermediate Hives Verified 04/05/23 13:51 latex Allergy Intermediate RASH Verified 04/05/23 13:51 Sulfa (Sulfonamide Allergy Intermediate RASH Verified 04/05/23 13:51 Antibiotics) clarithromycin AdvReac Intermediate HEART RACES Verified 04/05/23 13:51 Umesh's multigrain bread Allergy Intermediate Hives Uncoded 04/05/23 13:51 Home Meds Home Medications Medication Instructions Recorded Confirmed amitriptyline 50 mg tablet 100 mg PO HS 12/06/17 04/10/23 fluticasone propionate 50 1 spray intranasal QAM 03/10/19 04/10/23 mcg/actuation nasal spray,suspension levothyroxine 175 mcg tablet 175 mcg PO QAM 03/10/19 04/10/23 (Synthroid) atorvastatin 80 mg tablet 80 mg PO HS 02/19/20 04/10/23 loratadine 10 mg tablet 10 mg PO DAILY PRN Allergy Symptoms 01/19/21 04/10/23 albuterol sulfate 90 mcg/actuation 1 - 2 puff inhalation QID PRN 06/20/21 04/10/23 aerosol inhaler ASTHMA pen needle, diabetic 32 gauge x 06/20/21 04/10/23 5/32" (BD Ultra-Fine Siria Pen Needle) blood sugar diagnostic (FreeStyle 06/29/21 04/10/23 Precision Perico Strips) flash glucose scanning reader 06/29/21 04/10/23 (FreeStyle Davy 14 Day [place]) flash glucose sensor (FreeStyle 06/29/21 04/10/23 Davy 14 Day Sensor kit) lancets 30 gauge (OneTouch Delica 06/29/21 04/10/23 Lancets) cholecalciferol (vitamin D3) 50 50 mcg PO QAM 02/09/22 04/10/23 mcg (2,000 unit) capsule dulaglutide 1.5 mg/0.5 mL 1.5 mg subcut WK 07/25/22 04/10/23 subcutaneous pen injector (Trulicity) insulin aspart U-100 100 unit/mL 0 sliding scale dose subcut TIDM 01/25/23 04/10/23 (3 mL) subcutaneous pen (Novolog FlexPen U-100 Insulin aspart) insulin glargine 100 unit/mL 54 unit subcut BID 01/25/23 04/10/23 subcutaneous solution (Lantus U-100 Insulin) albuterol sulfate 90 mcg/actuation 2 puff inhalation QID PRN wheezing 03/19/23 04/10/23 aerosol inhaler ipratropium 20 mcg-albuterol 100 2 puff inhalation BID PRN 03/19/23 04/10/23 mcg/actuation mist for inhalation Shortness Of Breath Or Wheezing (Combivent Respimat) omeprazole 20 mg capsule,delayed 20 mg PO DAILY 03/19/23 04/10/23 release famotidine 20 mg tablet 20 mg PO BID 04/10/23 04/10/23 lisinopril 40 mg tablet 40 mg PO DAILY 04/10/23 04/10/23 metformin 1,000 mg tablet 1,000 mg PO BID 04/10/23 04/10/23 Previous Rx's Medication Instructions Recorded dapagliflozin propanediol 5 mg 5 mg PO QAM #90 tabs 10/19/22 tablet (Farxiga) cyanocobalamin (vitamin B-12) 1,000 mcg PO DAILY #30 tabs 01/16/23 1,000 mcg tablet ferrous sulfate 325 mg (65 mg 325 mg PO DAILY #30 tabs 01/16/23 iron) tablet folic acid 1 mg tablet 1,000 mcg PO DAILY #30 tabs 01/16/23 amlodipine 5 mg tablet (Norvasc) 10 mg (2 x 5 mg) PO QAM #30 tabs 03/25/23 bumetanide 1 mg tablet 2 mg (2 x 1 mg) PO QAM #60 tabs 04/05/23 Results & Data (ED) Vital Signs Vital Signs - 24 hr 04/09/23 22:34 04/09/23 22:35 04/09/23 22:35 Temperature 37.1 C Temperature Source Oral Pulse Rate 71 70 71 Pulse Rate from SpO2 Sensor 71 Pulse Rhythm Regular Respiratory Rate 18 26 H Respiratory Effort / Characteristics Non-Labored Spontaneous Respiratory Depth Normal Respiratory Pattern Regular Blood Pressure 156/87 H Blood Pressure Mean 110 Pulse Oximetry 95 94 Oxygen Delivery Method Room Air Sepsis Recent Fever Within 48 Hours No Sepsis New/Unexplained Change in Mental Status N/A Sepsis Action Taken by Nursing No Action Required 04/09/23 23:00 04/09/23 23:30 04/10/23 00:00 Temperature Temperature Source Pulse Rate 67 67 65 Pulse Rate from SpO2 Sensor 68 68 64 Pulse Rhythm Respiratory Rate 29 H 26 H 19 Respiratory Effort / Characteristics Respiratory Depth Respiratory Pattern Blood Pressure Blood Pressure Mean Pulse Oximetry 93 93 93 Oxygen Delivery Method Sepsis Recent Fever Within 48 Hours Sepsis New/Unexplained Change in Mental Status Sepsis Action Taken by Nursing 04/10/23 00:09 04/10/23 00:47 04/10/23 01:00 Temperature Temperature Source Pulse Rate 71 71 Pulse Rate from SpO2 Sensor 71 Pulse Rhythm Respiratory Rate 16 21 Respiratory Effort / Characteristics Respiratory Depth Respiratory Pattern Blood Pressure Blood Pressure Mean Pulse Oximetry 95 Oxygen Delivery Method Room Air Sepsis Recent Fever Within 48 Hours Sepsis New/Unexplained Change in Mental Status Sepsis Action Taken by Nursing 04/10/23 01:30 04/10/23 02:00 04/10/23 02:30 Temperature Temperature Source Pulse Rate 68 68 Pulse Rate from SpO2 Sensor 68 68 67 Pulse Rhythm Respiratory Rate 28 H 23 Respiratory Effort / Characteristics Respiratory Depth Respiratory Pattern Blood Pressure Blood Pressure Mean Pulse Oximetry 96 94 91 Oxygen Delivery Method Sepsis Recent Fever Within 48 Hours Sepsis New/Unexplained Change in Mental Status Sepsis Action Taken by Nursing 04/10/23 03:00 04/10/23 03:30 04/10/23 03:53 Temperature Temperature Source Pulse Rate Pulse Rate from SpO2 Sensor 68 70 Pulse Rhythm Respiratory Rate Respiratory Effort / Characteristics Respiratory Depth Respiratory Pattern Blood Pressure 152/78 H Blood Pressure Mean 98 Pulse Oximetry 90 92 Oxygen Delivery Method Sepsis Recent Fever Within 48 Hours Sepsis New/Unexplained Change in Mental Status Sepsis Action Taken by Nursing 04/10/23 03:53 04/10/23 04:00 04/10/23 04:30 Temperature Temperature Source Pulse Rate 74 68 Pulse Rate from SpO2 Sensor 72 73 69 Pulse Rhythm Respiratory Rate 16 22 Respiratory Effort / Characteristics Respiratory Depth Respiratory Pattern Blood Pressure Blood Pressure Mean Pulse Oximetry 91 88 L 91 Oxygen Delivery Method Sepsis Recent Fever Within 48 Hours Sepsis New/Unexplained Change in Mental Status Sepsis Action Taken by Nursing Laboratory Data 04/10/23 01:14 04/10/23 01:14 Lab Results 04/10/23 Range/Units 01:14 WBC 9.94 (4.8-10.8) K/ul RBC 3.31 L (4.20-5.40) M/uL Hgb 8.6 L (12.0-16.0) g/dl Hct 28.4 L (37.0-47.0) % MCV 85.8 (80.0-100.0) fL MCH 26.0 (25.0-34.0) pg MCHC 30.3 L (32.0-36.0) g/dL RDW Std Deviation 56.6 H (36.4-46.3) fL RDW Coeff of Sylvia 18.0 H (11.5-14.5) % Plt Count 420 H (130-400) K/uL MPV 11.1 (9.4-12.4) fL Immature Gran % (Auto) 0.5 % Neut % (Auto) 70.8 % Lymph % (Auto) 21.1 % [place] % (Auto) 5.7 % Eos % (Auto) 1.4 % Baso % (Auto) 0.5 % Neut # (Auto) 7.03 H (1.40-6.50) K/uL Lymph # (Auto) 2.10 (1.20-3.40) K/uL [place] # (Auto) 0.57 (0.11-0.59) K/uL Eos # (Auto) 0.14 (0.00-0.50) K/uL Baso # (Auto) 0.05 (0.00-0.20) K/uL Immature Gran # (Auto) 0.05 (0.01-0.20) K/uL Sodium 135 L (136-145) mmol/L Potassium 5.4 H (3.5-5.1) mmol/L Chloride 106 (98-107) mmol/L Carbon Dioxide 19 L (21-32) mmol/L Anion Gap 10 (3-11) BUN 37 H (6-23) mg/dl Creatinine 2.12 H (0.6-1.2) mg/dl Est Cr Clr Drug Dosing 39.0 ml/min Est GFR ( Amer) 28.2 ml/min Est GFR (Non-Af Amer) 24.3 ml/min BUN/Creatinine Ratio 17.5 (10-20) Glucose 239 H (70-99(Fasting)) mg/dl Calcium 8.7 (8.6-10.3) mg/dl Total Bilirubin 0.3 (0.2-1.0) mg/dl AST 19 (13-39) U/L ALT 10 (7-52) U/L Alkaline Phosphatase 108 H (34-104) U/L Total Protein 7.4 (6.0-8.3) gm/dl Albumin 3.0 L (3.4-5.0) gm/dl Globulin 4.4 H (2.5-4.0) gm/dl Albumin/Globulin Ratio 0.7 L (0.9-2) Administered Medications Discontinued Medications Acetaminophen (Acetaminophen 500 Mg Tab) 1,000 mg PO NOW STA Stop: 04/10/23 03:49 Last Admin: 04/10/23 03:53 Dose: 1,000 mg Documented By: BECCA Imaging Data Radiologist's Impression: Cervical Spine CT 04/10/23 00:09 Exam(s): CT C SPINE EXAM: CT Cervical Spine Without Intravenous Contrast CLINICAL HISTORY: Reason for exam: fall. TECHNIQUE: Axial computed tomography images of the cervical spine without intravenous contrast. Automated exposure control was utilized for the study. A dose lowering technique was utilized adhering to the principles of ALARA. COMPARISON: 01/28/2022. FINDINGS: Vertebrae: Degenerative arthrosis at anterior C1-C2 articulation, otherwise normal odontoid process. Multilevel endplate spondylosis with narrowing of disc height consistent with disc degenerative disease, more severe from C5-C7. Straightening of the cervical lordosis, likely degenerative related. No acute fracture. Discs/spinal canal/neural foramina: Multilevel bilateral apophyseal hypertrophy with no significant neuroforaminal encroachment. No central canal stenosis. Soft tissues: Unremarkable. Vasculature: Calcified atherosclerotic disease throughout the bilateral carotid arteries. Pleural space: Lung apices revealed no pneumothorax. IMPRESSION: No acute findings in the cervical spine. Electronically signed by: Celeste Lopez MD 04/10/23 03:[address] 04/10/23 00:10 Exam(s): CT HEAD Without Contrast EXAM: CT Head Without Intravenous Contrast CLINICAL HISTORY: Reason for exam: fall. TECHNIQUE: Axial computed tomography images of the head/brain without intravenous contrast. Automated exposure control was utilized for the study. A dose lowering technique was utilized adhering to the principles of ALARA. COMPARISON: 03/10/2020. FINDINGS: Brain: Mild generalized brain atrophy. Slight decreased attenuation within the deep white matter compatible with mild microangiopathic disease. No hemorrhage. Ventricles: Unremarkable. No ventriculomegaly. Bones/joints: Unremarkable. No acute fracture. Soft tissues: Unremarkable. Sinuses: Unremarkable as visualized. No acute sinusitis. Mastoid air cells: Unremarkable as visualized. No mastoid effusion. IMPRESSION: Chronic changes as described with no acute intracranial hemorrhage or space-occupying lesion. Electronically signed by: Celeste Lopez MD 04/10/23 03:32 AM Discharge Plan Visit Data Chief Complaint: Fall Stated Complaint: Fall, Hit Head ED Provider: Melissa Tan Discharge Problem: Ambulatory dysfunction, Anemia Patient Disposition: Admitted As Inpatient Discharge Instructions Interventions: ED Discharge Assessment Last Done: 04/10/23 08:34 Discharge Problem: Anemia Qualifiers: Anemia type: unspecified type Qualified Code(s): D64.9 - Anemia, unspecified
[2023-04-10 01:32] LABS: Basophils # (auto) 0.05 K/uL (0.00-0.20); Basophils % (auto) 0.5 %; Eosinophils # (auto) 0.14 K/uL (0.00-0.50); Eosinophils % (auto) 1.4 %; Hematocrit (blood only) 28.4 % (37.0-47.0); Hemoglobin 8.6 g/dl (12.0-16.0); Immature Granulocytes # (auto) 0.05 K/uL (0.01-0.20); Immature Granulocytes % (auto) 0.5 %; Lymphocytes % (auto) 21.1 %; Mean Corpuscular Hgb Conc 30.3 g/dL (32.0-36.0); Mean Corpuscular Volume 85.8 fL (80.0-100.0); Mean Platelet Volume 11.1 fL (9.4-12.4); Monocytes # (auto) 0.57 K/uL (0.11-0.59); Monocytes % (auto) 5.7 %; Neutrophils # (auto) 7.03 K/uL (1.40-6.50); Neutrophils % (auto) 70.8 %; Platelet Count 420 K/uL (130-400); RDW Standard Deviation 56.6 fL (36.4-46.3); Red Blood Count 3.31 M/uL (4.20-5.40); White Blood Count 9.94 K/ul (4.8-10.8)
[2023-04-10 01:48] LABS: Albumin Globulin Ratio 0.7 (0.9-2); BUN Creatinine Ratio 17.5 (10-20); Bilirubin,Total 0.3 mg/dl (0.2-1.0); Calcium 8.7 mg/dl (8.6-10.3); Est GFR (African American) 28.2 ml/min; Est GFR (Non-African American) 24.3 ml/min; Globulin 4.4 gm/dl (2.5-4.0); Potassium 5.4 mmol/L (3.5-5.1); Total Protein 7.4 gm/dl (6.0-8.3)
--- OUTSIDE RECORDS SUMMARY | 2023-04-10 02:49 | External Medical Summary | Continuity of Care Document ---
Author Name Unknown Organization [address] Address [address] [place] [address] [place], [place] [id number] Care Team Providers Care Relocation Counselor Name Role Phone JeremyfabioNatali Brielle Primary Care Physician [id number] Encounter [facility] [id number] Date(s): 04/04/23 - 04/04/[address] [place] [facility] [address] [facility], [address] [place] [address] [place] [phone] Encounter Diagnosis Body mass index [BMI] 60.0-69.9, adult(Discharge Diagnosis) - 04/04/23 Elevated serum creatinine(Discharge Diagnosis) - 04/04/23 Congestive heart failure(Discharge Diagnosis) - 04/04/23 Chronic renal insufficiency(Discharge Diagnosis) - 04/04/23 Discharge Disposition: Home or Self Care Attending Physician: SANDRA Pop Katy Marie Referring Physician: SANDRA Pop Katy Marie Allergies, Adverse Reactions, Alerts Substance Reaction Severity Status amoxicillin hives Active clarithromycin 1 Active Allergy Not found in Search 2 hives Active sulfa drugs turned red, itchy on lower arms and legs Active Latex rash Active NyQuil Cold/Flu Relief rash Activ e 1Palpitations 2Arnold's 12 grain bread Assessment and Plan Extracted from: Title:CHF Author:SANDRA Pop Katy Marie Date:04/04/23 1.Chronic renal insufficie ncy Problem isChronic Goal:maintence Data:_ Plan:get an appt with nephro, her creatinine levels have been rising due to the diuresing during recent admission 2.Congestive heart failure Problem isChronic Goal:maintence Data:_ Plan:will defer management to CHF clinic. She has an appointment with them tomorrow. Discussed low sodium diet and monitoring weight Immunizations Given and Recorded Vaccine Date Status [...] 3, PRN: as needed for wheezing, Pharmacy: [facility] Start Date: 03/15/23 Stop Date: 07/13/23 Status: Ordered BD needle Ultra-Fine Pen Siria 32G x 4mm Start: 03/06/22 10:31:00 EST, See Instructions, Disp# 360 each, Refills: 3, use qid with insulin icd 10 E11.9, Pharmacy: [facility] Start Date: 03/06/22 Status: Ordered bumetanide 0.5 mg oral tablet Start: 10/19/21 11:36:00 EDT, 1 tab, PO, Daily Start Date: 10/19/21 Status: Ordered Combivent Respimat 20 mcg-100 mcg/inh inhalation aerosol Start: 03/15/23 9:00:00 EST, 2 puff, inhaled, bid, Disp# 1 each, Refills: 3, Pharmacy: Replaced By [facility] Start Date: 03/15/23 Status: Ordered Elavil 50 mg oral tablet Start: 07/20/22 12:40:00 EDT, 2 tab, PO, qhs, Disp# 180 tab, Refills: 3, Pharmacy: [place] [id number] Start Date: 07/20/22 Status: Ordered famotidine 20 mg oral tablet Start: 03/07/23 14:22:00 EST, See Instructions, Disp# 180 tab, Refills: 0, Take 1 tablet by mouth twice daily, Pharmacy: [place] [id number] Start Date: 03/07/23 Status: Ordered Farxiga 5 mg oral tablet TAKE 1 TABLET BY MOUTH ONCE DAILY Start Date: 10/19/21 Status: Ordered ferrous sulfate 325 mg (65 mg elemental iron) oral delayed release tablet Start: 03/07/23 14:22:00 EST, 1 tab, PO, bid, Disp# 60 tab, Refills: 3, Pharmacy: Replaced By [facility] Start Date: 03/07/23 Stop Date: 07/05/23 Status: Ordered fluticasone 50 mcg/inh nasal spray Start: 12/03/16 9:42:19, See Instructions, Disp# 16, Refills: 2, 2 spray each nostril Daily,x30 day, Pharmacy: [facility] [address] Start Date: 12/03/16 Status: Ordered folic acid 1 mg oral tablet Start: 03/07/23 14:21:00 EST, 1 tab, PO, Daily, Disp# 30 tab, Refills: 2, Pharmacy: Replaced By [facility] Start Date: 03/07/23 Stop Date: 06/05/23 Status: Ordered FreeStyle Davy 2 - 14 day sensor Start: 10/31/22 16:42:00 EDT, See Instructions, Disp# 3 kit, Refills: 0, place q 2 weeks Start Date: 10/31/22 Status: Ordered Levemir FlexPen 100 units/mL subcutaneous solution Start: 09/29/22 17:23:00 EDT, See Instructions, Disp# 30 mL, Refills: 3, inject 54 units in am and 43 units in pm, Pharmacy: Replaced By [facility] Start Date: 09/29/22 Status: Ordered Lipitor 80 mg oral tablet Start: 07/14/22 9:57:00 EDT, 1 tab, PO, Daily, Disp# 90 tab, Refills: 3, Pharmacy: Replaced By [facility] Start Date: 07/14/22 Stop Date: 07/09/23 Status: Ordered metFORMIN 1000 mg oral tablet Start: 10/06/22 11:23:00 EDT, See Instructions, Disp# 180 tab, Refills: 2, Take 1 tablet by mouth twice daily, Pharmacy: Replaced By [facility] Start Date: 10/06/22 Status: Ordered Microlet Lancets 100 ct Start: 12/07/22 15:22:00 EDT, See Instructions, Disp# 100 each, Refills: 3, check blood sugars TID,Pharmacy: Replaced By [facility] Start Date: 12/07/22 Status: Ordered NovoLOG [...] 1 capsule by mouth once daily, Pharmacy: Replaced By [facility] Start Date: 03/07/23 Status: Ordered One Touch Verio Test Strips Start: 12/07/22 15:21:00 EDT, See Instructions, Disp# 100 strip, Refills: 3, check blood sugars TID, Pharmacy: Replaced By [facility] Start Date: 12/07/22 Status: Ordered Santyl 250 units/g topical ointment Start: 08/25/22 11:29:00 EDT Start Date: 08/25/22 Status: Ordered Synthroid 175 mcg (0.175 mg) oral tablet Start: 07/14/22 9:57:00 EDT, 1 tab, PO, Daily, Disp# 90 tab, Refills: 3, Pharmacy: Replaced By [facility] Start Date: 07/14/22 Status: Ordered Trulicity Pen 0.75 mg/0.5 mL subcutaneous solution Start: 01/08/23 14:46:00 EDT, 0.75 mg =, subQ, q7days, Disp# 1 kit, Refills: 3, Pharmacy: [facility] Start Date: 01/08/23 Stop Date: 01/03/24 Status: Ordered Valtrex 1 g oral tablet Start: 08/03/22 13:15:00 EDT, 1 tab, PO, q12h, Disp# 6 tab, Refills: 0, Pharmacy: [facility] Start Date: 08/03/22 Stop Date: [...] Effective Dates Health Status Clinical Service Informant Body mass index [BMI] 60.0-69.9, adult Discharge Diagnosis 04/04/23 Non-Specified Elevated serum creatinine Discharge Diagnosis 04/04/23 Non-Specified Congestive heart failure Discharge Diagnosis 04/04/23 Chronic renal insufficiency Discharge Diagnosis 04/04/23 Procedures Procedure Date Related Diagnosis Body Site [...] joints 2. 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 Her hemoglobin in the emergencydepartment was 7.5. She was given2 unit of blood. Chest x-ray showed congestion. Home health nursing reports that they are concerned that her fluid around her abdomenis significantly impacting her ability to breathe. She follows with [facility] cardiologyand has an upcoming appointment with the heart failure clinic. She was found to be in a junctional rhythm during her hospital stay but at this point does not meet criteria for pacemakerper cardiology notes. They plan on doing a Holter monitorto further evaluate the need for pacemaker. She underwent significant diuresisduring her admission. Creatinine was found to be elevated duetoIV diuretics at 2.4. She also received wound care for chronic nonhealing ulceron her heel. They did obtain an x-ray and there is no evidence of osteomyelitis. TOLBERT occuring when walking from bathroom to the cough taking 1mg Bumetanide Does get home care and PT on Wednesdays Sees Dr. 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 Review of Systems Constitutional: No fevers, No chills, No fatigue Respiratory: +shortness of breath, No cough, No wheezing Cardiovascular: No chest pain, No dizziness, No palpitations, No syncope, No lightheadedness, +edema, +weight gain HEENT: No congestion, No drainage, No ear pain, No sore throat Gastrointestinal: No nausea, No vomiting, No diarrhea, No heartburn, +appetite changes, No constipation, No abdominal pain, No weight loss Genitourinary: No dysuria, No hematuria, No frequency, No urgency, No abnormal discharge Musculoskeletal: No trauma, No muscle/back/joint pain, No decreased ROM Skin: No rashes, No lesions, No breakdown, No pruritus Neurological: Normal balance, No numbness, No tingling, No headache, +weakness Physical Exam Vitals & Measurements T:36.4C HR:74(Monitored) RR:16 BP:140/60 SpO2:97% HT:153.6cm WT:155.700kg(Dosing) WT:155.7kg BMI:65.99 Constitutional: Alert and oriented, No acute distress, Well-appearing, Normal mood and affect Respiratory: Lung sounds are clear but diminished, equal chest rise and fall with breathing, no pursed lip breathing Cardiovascular: Heart sounds regular rate and rhythm, no murmur, 4+edema HEENT: Normocephalic, atraumatic, conjunctiva are clear, sclera non-icteric Gastrointestinal: abdomen is soft and non-tender to palpation, normoactive BS, no organomegaly/masses/hernia, +fluid wave, distended Musculoskeletal: No weakness, normal gait, no atrophy or abnormal muscle tone Skin: Warm, pink, dry, intact Neurological: sensation intact Assessment/Plan 1.Chronic renal insufficiency Problem isChronic Goal:maintence Data:_ Plan:get an appt with nephro, her creatinine levels have been rising due to the diuresing during recent admission 2.Congestive heart failure Problem isChronic Goal:maintence Data:_ Plan:will defer management to CHF clinic. She has an appointment with them tomorrow. Discussed low sodium diet and monitoring weight Problem List/Past Medical History Ongoing Acute asthma [...] ct), See Instructions, 3 refills diabetes supplies(FreeStyle Advy 2 - 14 day sensor), See Instructions [...] mg oral delayed release capsule), See Instructions syringe needles(BD needle Ultra-Fine Pen Siria 32G x 4mm), See Instructions, 3 refills valACYclovir(Valtrex 1 g oral tablet), 1 g= [...] due02/03/21and every 731day Due Adult COVID-19 Vaccination due04/04/23Unknown Frequency Adult Social Determinants of Health Screening due04/04/23Unknown Frequency Adult Tdap/Td Vaccine due04/04/23Unknown Frequency Cervical Cancer Screening due04/04/23Unknown Frequency Hepatitis C Screening due04/04/23One-time only Pneumococcal Vaccine Adults and Adolescents with Chronic Illness due04/04/23One-time only Shingles Vaccine due04/04/23One-time only Due In Future Adult Influenza Vaccine not due until09/09/23and every 1year Diabetes Management A1c not due until12/14/23and every 366day Satisfied(in the past 1 year) Satisfied Adult Influenza Vaccine on12/13/22.Satisfied by SARTHAK Mckinney, Angelica Body Mass Index on04/04/23.Satisfied by CATHERINE Sanders Angela Diabetes Management A1c on12/13/22.Satisfied by Contributor_system, [email or web address] Diabetes Nephropathy Management on10/19/22.Satisfied by Contributor_system, [id number] Electronic Signature on File CC: Natali Langston DO [address] [place] [address] Electronically Reviewed/Signed by: SANDRA Wren Author Signature Dt/Tm:04/04/2023 07:26 PM Department of [facility] Patient Care team information Care Team Personnel Name: DO Langston Kristen M Position: Physician - Family Med Member Role: Primary Care Provider Address: Address: [address] [place] [address] [place] Name: SANDRA Pop Katy Marie Position: Nurse Pract - Family Med Member Role: Lifetime Relationship Address: Address: [address] [place] [address], [place] [address] Name: SANDRA Llamas Shari A Position: Nurse Pract - Family Med Member Role: Lifetime Relationship Address: Address: [address] [place] [id number] Care Team Related Persons Name: ALEISHA ACEVEDO Address: [facility], [place] [id number]
--- NOTE | 2023-04-10 03:32 | CT Scan Report ---
Exam(s): CT HEAD Without Contrast EXAM: CT Head Without Intravenous Contrast CLINICAL HISTORY: Reason for exam: fall. TECHNIQUE: Axial computed tomography images of the head/brain without intravenous contrast. Automated exposure control was utilized for the study. A dose lowering technique was utilized adhering to the principles of ALARA. COMPARISON: 03/10/2020. FINDINGS: Brain: Mild generalized brain atrophy. Slight decreased attenuation within the deep white matter compatible with mild microangiopathic disease. No hemorrhage. Ventricles: Unremarkable. No ventriculomegaly. Bones/joints: Unremarkable. No acute fracture. Soft tissues: Unremarkable. Sinuses: Unremarkable as visualized. No acute sinusitis. Mastoid air cells: Unremarkable as visualized. No mastoid effusion. IMPRESSION: Chronic changes as described with no acute intracranial hemorrhage or space-occupying lesion. Electronically signed by: Celeste Lopez MD 04/10/23 03:32 AM
--- NOTE | 2023-04-10 03:35 | CT Scan Report ---
Exam(s): CT C SPINE EXAM: CT Cervical Spine Without Intravenous Contrast CLINICAL HISTORY: Reason for exam: fall. TECHNIQUE: Axial computed tomography images of the cervical spine without intravenous contrast. Automated exposure control was utilized for the study. A dose lowering technique was utilized adhering to the principles of ALARA. COMPARISON: 01/28/2022. FINDINGS: Vertebrae: Degenerative arthrosis at anterior C1-C2 articulation, otherwise normal odontoid process. Multilevel endplate spondylosis with narrowing of disc height consistent with disc degenerative disease, more severe from C5-C7. Straightening of the cervical lordosis, likely degenerative related. No acute fracture. Discs/spinal canal/neural foramina: Multilevel bilateral apophyseal hypertrophy with no significant neuroforaminal encroachment. No central canal stenosis. Soft tissues: Unremarkable. Vasculature: Calcified atherosclerotic disease throughout the bilateral carotid arteries. Pleural space: Lung apices revealed no pneumothorax. IMPRESSION: No acute findings in the cervical spine. Electronically signed by: Celeste Lopez MD 04/10/23 03:34 AM
[2023-04-10] MEDS ORDERED: ACETAMINOPHEN 500 MG TAB PO STA (03:48)
--- NOTE | 2023-04-10 04:49 | History & Physical Report ---
Date of Service April 10, 2023 Assessment & Plan (1) Fall: Plan: Patient lost balance and fell in the bathtub. No LOC. No complaints at present -PT/OT evaluation -Case management evaluation -Fall precautions (2) (HFpEF) heart failure with preserved ejection fraction: Plan: Patient seems well compensated overall. She reports increased edema of her bilateral LE and a 5# weight gain over the last 2 days. Shortness of breath as well. No hypoxia. -Bumex 2mg IV x 1 dose now -Continue PO Bumex 2mg po daily -Monitor I/Os, daily weights (3) Uncontrolled diabetes mellitus with hyperglycemia, with long-term current use of insulin: Plan: Last GcgN3N=0 on 03/20/23 -Continue Lantus 54u BID -ISS -Goal blood sugar 110 - 140 -Can resume home Farxiga, Metformin and Dulaglutide on discharge (4) Hypertension: Plan: Blood pressure mildly elevated -Continue Lisinopril and Amlodipine -Monitor (5) Hypercholesteremia: Plan: Chronic. Stable -Continue Atorvastatin (6) Hypothyroidism: Plan: Chronic -Check TSH -Continue Synthroid History of Present Illness Chief Complaint: fall Primary Care Provider: DO Alexandria Zaidi Sarah is a 62yo female with history of HTN, HLP, DM, CKD and GERD presenting after a fall at home. She was getting out of the bathtub - reports that it was difficult to bend her knees due to fluid on her legs. Unfortunately she slipped, fell and hit the back of her head on the bathtub. She did not lose consciousness. Was not able to get up so called EMS and came to the hospital. In the ER she is afebrile, HD stable. Concerned that she cannot take care of herself at home right now and is requesting temporary rehab placement. Allergies Allergy/AdvReac Type Severity Reaction Status Date / Time amoxicillin Allergy Intermediate hives Verified 04/05/23 13:51 dextromethorphan Allergy Intermediate Hives Verified 04/05/23 13:51 [From NyQuil] doxylamine [From NyQuil] Allergy Intermediate Hives Verified 04/05/23 13:51 latex Allergy Intermediate RASH Verified 04/05/23 13:51 Sulfa (Sulfonamide Allergy Intermediate RASH Verified 04/05/23 13:51 Antibiotics) clarithromycin AdvReac Intermediate HEART RACES Verified 04/05/23 13:51 Umesh's multigrain bread Allergy Intermediate Hives Uncoded 04/05/23 13:51 Home Medications Medication Instructions Recorded Confirmed Type amitriptyline 50 mg tablet 100 mg PO HS 12/06/17 04/10/23 History fluticasone propionate 50 1 spray intranasal QAM 03/10/19 04/10/23 History mcg/actuation nasal spray,suspension levothyroxine 175 mcg tablet 175 mcg PO QAM 03/10/19 04/10/23 History (Synthroid) atorvastatin 80 mg tablet 80 mg PO HS 02/19/20 04/10/23 History loratadine 10 mg tablet 10 mg PO DAILY PRN Allergy Symptoms 01/19/21 04/10/23 History albuterol sulfate 90 mcg/actuation 1 - 2 puff inhalation QID PRN 06/20/21 History aerosol inhaler ASTHMA pen needle, diabetic 32 gauge x 06/20/21 04/10/23 History 5/32" (BD Ultra-Fine Siria Pen Needle) blood sugar diagnostic (FreeStyle 06/29/21 04/10/23 History Precision Perico Strips) flash glucose scanning reader 06/29/21 04/10/23 History (FreeStyle Davy 14 Day [place]) flash glucose sensor (FreeStyle 06/29/21 04/10/23 History Davy 14 Day Sensor kit) lancets 30 gauge (OneTouch Delica 06/29/21 04/10/23 History Lancets) cholecalciferol (vitamin D3) 50 50 mcg PO QAM 02/09/22 04/10/23 History mcg (2,000 unit) capsule dulaglutide 1.5 mg/0.5 mL 1.5 mg subcut WK 07/25/22 04/10/23 History subcutaneous pen injector ([facility]) dapagliflozin propanediol 5 mg 5 mg PO QAM #90 tabs 10/19/22 04/10/23 Rx tablet (Farxiga) cyanocobalamin (vitamin B-12) 1,000 mcg PO DAILY #30 tabs 01/16/23 04/10/23 Rx 1,000 mcg tablet ferrous sulfate 325 mg (65 mg 325 mg PO DAILY #30 tabs 01/16/23 04/10/23 Rx iron) tablet folic acid 1 mg tablet 1,000 mcg PO DAILY #30 tabs 01/16/23 04/10/23 Rx insulin aspart U-100 100 unit/mL 0 sliding scale dose subcut TIDM 01/25/23 04/10/23 History (3 mL) subcutaneous pen (Novolog FlexPen U-100 Insulin aspart) insulin glargine 100 unit/mL 54 unit subcut BID 01/25/23 04/10/23 History subcutaneous solution (Lantus U-100 Insulin) albuterol sulfate 90 mcg/actuation 2 puff inhalation QID PRN wheezing 03/19/23 04/10/23 History aerosol inhaler ipratropium 20 mcg-albuterol 100 2 puff inhalation BID PRN 03/19/23 04/10/23 History mcg/actuation mist for inhalation Shortness Of Breath Or Wheezing (Combivent Respimat) omeprazole 20 mg capsule,delayed 20 mg PO DAILY 03/19/23 04/10/23 History release amlodipine 5 mg tablet (Norvasc) 10 mg (2 x 5 mg) PO QAM #30 tabs 03/25/23 04/10/23 Rx bumetanide 1 mg tablet 2 mg (2 x 1 mg) PO QAM #60 tabs 04/05/23 04/10/23 Rx famotidine 20 mg tablet 20 mg PO BID 04/10/23 04/10/23 History lisinopril 40 mg tablet 40 mg PO DAILY 04/10/23 04/10/23 History metformin 1,000 mg tablet 1,000 mg PO BID 04/10/23 04/10/23 History Past Med/Surg History Medical History Pseudomonas infection History of anesthesia reaction woke up during shoulder arthroscopy Peritonsillar abscess recent admission @ [facility] 01/29/22 for this--per pt has finished all antibiotics for this, no further issues at this time Chronic kidney disease, stage III (moderate) SOB (shortness of breath) RBBB Hypoxia Hyperglycemia due to type 2 diabetes mellitus Pneumonia due to COVID-19 virus COVID-19 hx of in 2019--per pt was hospitalized for COVID--states no symptoms currently Bifascicular block Foot drop LEFT Chronic back pain Osteoarthritis Hx of irritable bowel syndrome Cataract Bilateral Umbilical hernia Hiatal hernia PTSD (post-traumatic stress disorder) History of diverticulitis Tear of medial meniscus of right knee, current Morbid obesity with BMI of 50.0-59.9, adult Diabetes mellitus with hyperglycemia, with long-term current use of insulin Neck pain Narrowing of C6-C7 with bone spurs. CAUSES NUMBNESS IN LEFT ARM GERD (gastroesophageal reflux disease) Depression Anxiety Hyperlipidemia Hypertension Asthma COLD WEATHER FLARES UP/DENIES RECENT FLARE UP/ALBUTEROL ONLY PRN History of migraine Hyperosmolar hyponatremia Fibromyalgia Hypothyroidism Surgical History History of repair of right rotator cuff History of repair of left rotator cuff History of repair of ACL L S/P rotator cuff repair History of arthroscopy of right shoulder History of dilatation and curettage History of repair of ACL R History of esophagogastroduodenoscopy (EGD) History of colonoscopy History of D&C Family History Grandfather Diabetes Mother Myocardial infarction Heart disease Tobacco abuse Hx of CABG Family/Other Family history of diabetes mellitus Brother Family history of diabetes mellitus Father Aortic aneurysm Grandmother (Paternal) Cerebral aneurysm Stroke Other Family history of colon cancer in mother Social History Smoking Status: Never smoker Second Hand Exposure: Yes; Do You Dip or Chew Tobacco: No; Hx Alcohol Use: No Hx Substance Use: No Preferred Language: Malay Communication Ability: Effective Visual Impairment: No Limitations Collection Agent Required: No Beliefs That Will Affect Care: None marital status: Current Living Situation: Alone Feels Safe at Home: Yes Assistive Devices: Glasses and Walker Review of Systems Review of Systems: All systems reviewed & are unremarkable except as noted in HPI & below Physical Exam Physical Exam: General: patient resting comfortably, NAD, non-toxic in appearance, AA&O x 4 Skin: warm, dry, intact, no rashes or lesions HEENT: NC/AT, PERRL, EOMI, anicteric sclera, conjunctiva without injection, e xternal ear normal to inspection and nontender, nares patent, moist mucus membranes, dentition intact, no oropharyngeal lesions, neck supple, trachea midline, no LAD, no thyromegaly, no JVD Heart: +S1/S2, regular, no m/r/g Lungs: equal air entry bilaterally, crackles in bilateral bases, no rhonchi or wheeze Abd: +BS, soft, NT/ND, no masses/organomegaly/ascites Ext: warm, 2+ pulses in UE/LE bilaterally, +lymphedema, 2+ pitting edema, RLE wound wrapped Neuro: nonfocal, patient AA&O x 4, speech intact, no facial droop, moving all extremities on command with equal strength 5/5 Results & Data Results & Data Vital Signs (Past 12 Hours) Vital Signs Temp Pulse Resp BP Pulse Ox O2 Del Method 04/10/23 04:00 74 16 88 L 04/10/23 03:53 91 04/10/23 03:53 152/78 H 04/10/23 03:30 92 04/10/23 03:00 90 04/10/23 02:30 91 04/10/23 02:00 68 23 94 04/10/23 01:30 68 28 H 96 04/10/23 01:00 71 21 95 04/10/23 00:47 71 16 04/10/23 00:09 Room Air 04/10/23 00:00 65 19 93 04/09/23 23:30 67 26 H 93 04/09/23 23:00 67 29 H 93 04/09/23 22:35 71 04/09/23 22:35 37.1 C 70 26 H 156/87 H 94 Room Air 04/09/23 22:34 71 18 95 Laboratory Results Laboratory Results WBC 9.94 K/ul (4.8-10.8) 04/10/23 01:14 RBC 3.31 M/uL (4.20-5.40) L 04/10/23 01:14 Hgb 8.6 g/dl (12.0-16.0) L 04/10/23 01:14 Hct 28.4 % (37.0-47.0) L 04/10/23 01:14 MCV 85.8 fL (80.0-100.0) 04/10/23 01:14 MCH 26.0 pg (25.0-34.0) 04/10/23 01:14 MCHC 30.3 g/dL (32.0-36.0) L 04/10/23 01:14 RDW Std Deviation 56.6 fL (36.4-46.3) H 04/10/23 01:14 RDW Coeff of Sylvia 18.0 % (11.5-14.5) H 04/10/23 01:14 Plt Count 420 K/uL (130-400) H 04/10/23 01:14 MPV 11.1 fL (9.4-12.4) 04/10/23 01:14 Immature Gran % (Auto) 0.5 % 04/10/23 01:14 Neut % (Auto) 70.8 % 04/10/23 01:14 Lymph % (Auto) 21.1 % 04/10/23 01:14 Davis % (Auto) 5.7 % 04/10/23 01:14 Eos % (Auto) 1.4 % 04/10/23 01:14 Baso % (Auto) 0.5 % 04/10/23 01:14 Neut # (Auto) 7.03 K/uL (1.40-6.50) H 04/10/23 01:14 Lymph # (Auto) 2.10 K/uL (1.20-3.40) 04/10/23 01:14 Davis # (Auto) 0.57 K/uL (0.11-0.59) 04/10/23 01:14 Eos # (Auto) 0.14 K/uL (0.00-0.50) 04/10/23 01:14 Baso # (Auto) 0.05 K/uL (0.00-0.20) 04/10/23 01:14 Immature Gran # (Auto) 0.05 K/uL (0.01-0.20) 04/10/23 01:14 Sodium 135 mmol/L (136-145) L 04/10/23 01:14 Potassium 5.4 mmol/L (3.5-5.1) H 04/10/23 01:14 Chloride 106 mmol/L (98-107) 04/10/23 01:14 Carbon Dioxide 19 mmol/L (21-32) L 04/10/23 01:14 Anion Gap 10 (3-11) 04/10/23 01:14 BUN 37 mg/dl (6-23) H 04/10/23 01:14 Creatinine 2.12 mg/dl (0.6-1.2) H 04/10/23 01:14 Est Cr Clr Drug Dosing 39.0 ml/min 04/10/23 01:14 Est GFR ( Amer) 28.2 ml/min 04/10/23 01:14 Est GFR (Non-Af Amer) 24.3 ml/min 04/10/23 01:14 BUN/Creatinine Ratio 17.5 (10-20) 04/10/23 01:14 Glucose 239 mg/dl (70-99(Fasting)) H 04/10/23 01:14 Calcium 8.7 mg/dl (8.6-10.3) 04/10/23 01:14 Total Bilirubin 0.3 mg/dl (0.2-1.0) 04/10/23 01:14 AST 19 U/L (13-39) 04/10/23 01:14 ALT 10 U/L (7-52) 04/10/23 01:14 Alkaline Phosphatase 108 U/L (34-104) H 04/10/23 01:14 Total Protein 7.4 gm/dl (6.0-8.3) 04/10/23 01:14 Albumin 3.0 gm/dl (3.4-5.0) L 04/10/23 01:14 Globulin 4.4 gm/dl (2.5-4.0) H 04/10/23 01:14 Albumin/Globulin Ratio 0.7 (0.9-2) L 04/10/23 01:[address] 04/10/23 00:09 Exam(s): CT C SPINE EXAM: CT Cervical Spine Without Intravenous Contrast CLINICAL HISTORY: Reason for exam: fall. TECHNIQUE: Axial computed tomography images of the cervical spine without intravenous contrast. Automated exposure control was utilized for the study. A dose lowering technique was utilized adhering to the principles of ALARA. COMPARISON: 01/28/2022. FINDINGS: Vertebrae: Degenerative arthrosis at anterior C1-C2 articulation, otherwise normal odontoid process. Multilevel endplate spondylosis with narrowing of disc height consistent with disc degenerative disease, more severe from C5-C7. Straightening of the cervical lordosis, likely degenerative related. No acute fracture. Discs/spinal canal/neural foramina: Multilevel bilateral apophyseal hypertrophy with no significant neuroforaminal encroachment. No central canal stenosis. Soft tissues: Unremarkable. Vasculature: Calcified atherosclerotic disease throughout the bilateral carotid arteries. Pleural space: Lung apices revealed no pneumothorax. IMPRESSION: No acute findings in the cervical spine. Electronically signed by: Celeste Lopez MD 04/10/23 03:[address] 04/10/23 00:10 Exam(s): CT HEAD Without Contrast EXAM: CT Head Without Intravenous Contrast CLINICAL HISTORY: Reason for exam: fall. TECHNIQUE: Axial computed tomography images of the head/brain without intravenous contrast. Automated exposure control was utilized for the study. A dose lowering technique was utilized adhering to the principles of ALARA. COMPARISON: 03/10/2020. FINDINGS: Brain: Mild generalized brain atrophy. Slight decreased attenuation within the deep white matter compatible with mild microangiopathic disease. No hemorrhage. Ventricles: Unremarkable. No ventriculomegaly. Bones/joints: Unremarkable. No acute fracture. Soft tissues: Unremarkable. Sinuses: Unremarkable as visualized. No acute sinusitis. Mastoid air cells: Unremarkable as visualized. No mastoid effusion. IMPRESSION: Chronic changes as described with no acute intracranial hemorrhage or space-occupying lesion. Electronically signed by: Celeste Lopez MD 04/10/23 03:32 AM PG Care Time/CCT Total # of Minutes Spent Total Time Spent with Patient: Total time spent is greater than 50% in coordination of care (as documented) at patient's floor/unit and/or counseling patient: Coding Level of Care Code 43616 INT INP/OBS CARE 2/55MIN Diagnoses Fall W19.XXXA (HFpEF) heart failure with preserved ejection fraction I50.30 Uncontrolled diabetes mellitus with hyperglycemia, with long-term current use of insulin E11.65; Z79.4 Essential hypertension I10 Hypertension type: essential hypertension Hypercholesteremia E78.00 Acquired hypothyroidism E03.9 Hypothyroidism type: acquired (4) Hypertension Hypertension type: essential hypertension Qualified Code(s): I10 - Essential (primary) hypertension (6) Hypothyroidism Hypothyroidism type: acquired Qualified Code(s): E03.9 - Hypothyroidism, unspecified
[2023-04-10] MEDS ORDERED: BUMETANIDE 2 MG in SYRINGE 0 ML IV ONE ×2 (08:33→16:50)
[2023-04-10] MEDS ORDERED: GLUCOSE 10 TAB/TUBE PO PRN (08:33)
[2023-04-10] MEDS ORDERED: DEXTROSE 50% 50 ML SYRINGE IV PRN (08:33)
[2023-04-10] MEDS ORDERED: ALBUTEROL HFA 8 GM INHALER INH PRN ×2 (08:33→09:28)
[2023-04-10] MEDS ORDERED: ACETAMINOPHEN 325 MG TAB PO PRN (08:33)
[2023-04-10] MEDS ORDERED: CARBOHYDRATES FOR HYPOGLYCEMIA PO PRN (08:33)
[2023-04-10] MEDS ORDERED: LORATADINE 10 MG TAB PO PRN (08:33)
[2023-04-10] MEDS ORDERED: GLUCAGON FOR INJ 1 MG VIAL SQ PRN (08:33)
[2023-04-10] MEDS ORDERED: IPRATROPIUM BROMIDE/ALBUTEROL respimat INH INH PRN (08:33)
[2023-04-10] MEDS ORDERED: ONDANSETRON INJ 2 MG/ML 2 ML VIAL IV PRN ×2 (08:33)
[2023-04-10] MEDS ORDERED: GLUCOSE 40% GEL 15 GM TUBE PO PRN (08:33)
[2023-04-10] MEDS ORDERED: BUMETANIDE 1 MG TAB PO SCH (09:00)
[2023-04-10] MEDS ORDERED: PHARMACY GLYCEMIC MGMT CONSULT PRN (09:25)
[2023-04-10] MEDS ORDERED: IPRATROPIUM BROMIDE HFA INHALER INH PRN (09:28)
--- NOTE | 2023-04-10 09:50 | Pharmacy Report ---
Pharmacy Glycemic Short Note 2 - Date of Service April 10, 2023 - Glycemic Short BSG Results (Last 24 hours): 04/10/23 04/10/23 01:14 09:23 Glucose 239 H POC Glucose 233 H OUTPATIENT ANTIDIABETIC REGIMEN: * Lantus 54 units bid, Novolog TIDM (45 units with breakfast, 40 units with lunch, 35 units with dinner), farxiga 5 mg po daily, metformin 1 gm bid, trulicity weekly ASSESSMENT: * 62 year old female, s/p fall. PMHx significant for type 2 diabetes, htn, CHF. Patient on high amounts of insulin outpatient. Pharmacy consulted to assist with glycemic management. She is known to our glycemic service from prior admissions, most recently 03/19 - 03/26 admission. She typically requires much less insulin then outpatient regimen. Plan to utilize similar parameters for insulin as last admission as BSGs stable during that time. PLAN FOR INPATIENT GLYCEMIC CONTROL: * Hold outpatient oral diabetes medications * Basal insulin * Lantus 15 units SQ BID * Bolus insulin * NovoLog per scale ACHS or Q6hrs while NPO * Goal Range: Low 110 mg/dL - High 140 mg/dL * Correction Factor: 20 mg/dL/unit * Nutritional / Prandial insulin per carb ratio of 1 unit per 7 grams CHO consumed
[2023-04-10 10:04] LABS: Thyroid Stimulating Hormone 3.302 uIu/ml (0.300-4.500)
[2023-04-10] MEDS: FLUTICASONE PROPIONATE NA SPR 16 GM BTL SCH (10:06)
[2023-04-10] MEDS: lisinopril 40 MG TAB PO SCH (10:09)
[2023-04-10] MEDS: FAMOTIDINE 20 MG TAB PO SCH ×2 (10:09→20:53)
[2023-04-10] MEDS: FOLIC ACID 1 MG TAB PO SCH (10:09)
[2023-04-10] MEDS: amLODIPine BESYLATE 5 MG TAB PO SCH (10:09)
[2023-04-10] MEDS: LANTUS PER UNIT CHARGE SQ SCH ×2 (10:18→20:54)
[2023-04-10] MEDS: INSULIN ASPART PER UNIT CHARGE SC SCH ×4 (10:18→20:53)
[2023-04-10 13:34] LABS: BUN Creatinine Ratio 16.7 (10-20); Calcium 8.7 mg/dl (8.6-10.3); Creatinine Clr Calc Pharmacy 39.6 ml/min; Est GFR (African American) 28.7 ml/min; Est GFR (Non-African American) 24.7 ml/min; Potassium 4.7 mmol/L (3.5-5.1)
--- NOTE | 2023-04-10 16:56 | History & Physical Bridge Note ---
Date of Service April 10, 2023 History & Physical Bridge Note I have examined the patient, reviewed the History & Physical and in the interval since the performance of the History & Physical I have noted the following changes of clinical significance: Pt having right hip pain and lower back pain as well as pain in posterior head since the fall. Otherwise reports swelling all the way into her abdomen Has only urinated twice since receiving IV Bumex this AM Vitals reviewed NAD, obese HEENT: posterior occiput no edema or ecchymosis RRR no mgr CTAB no wcr Abd edematous, nontender Ext 3+ pitting edema to abdomen bilat right heel with dressing in place not removed 62 yo female here with fall, mechanical, hypoerkalemia, and vomlume overload Hypoerklaemia-resolved onm repeat BMP with IV Bumex and insulin-follow Volume overload-give another dose of IV Bumex this evening, reassess BMP and volume status tomorrow Fall-seen by PT and needs rehab-awaiting placement. Check right hip and lumbar spine xrays
--- NOTE | 2023-04-10 18:33 | XRay Report ---
XR hip RT min 2V HISTORY: 62 years-old Female fall, right hip pain . Right-sided hip pain status post fall COMPARISON: CT 01/25/2023 TECHNIQUE: 2 views of the right hip FINDINGS: Limited exam secondary to patient body habitus. Arterial calcifications. Moderate right hip osteoarth ritis. No acute fracture, dislocation or avascular necrosis identified. IMPRESSION: No acute fracture or dislocation. ACT 112: Negative or not required by law. The above report was generated using voice recognition software. It may contain grammatical, syntax o r spelling errors. Electronically signed by: Bryan Manrique M.D. 04/10/2023 6:31 PM
--- NOTE | 2023-04-10 18:35 | XRay Report ---
XR lumbar spine min 4V routine HISTORY: 62 years-old Female fall, lower back pain acute pain of the lobe status post fall COMPARISON: CT 01/25/2023 TECHNIQUE: 5 views of the lumbar spine FINDINGS: Limited exam secondary to patient body habitus. Moderate fecal retention in the right hemicolon. Ashly neralized appearance of the bones. Mild multilevel intervertebral disc space narrowing and spondyliti c spurring with mild to moderate facet arthrosis. No acute fracture, subluxation or endplate erosion identified. IMPRESSION: No acute fracture or subluxation identified. ACT 112: Negative or not required by law. The above report was generated using voice recognition software. It may contain grammatical, syntax o r spelling errors. Electronically signed by: Bryan Manrique M.D. 04/10/2023 6:33 PM
[2023-04-10] MEDS: AMITRIPTYLINE HCL 100 MG TAB PO SCH (20:53)
[2023-04-10] MEDS: ATORVASTATIN 40 MG TAB PO SCH (20:53)
[2023-04-11] MEDS: LEVOTHYROXINE SODIUM 175 MCG TABLET PO SCH (07:45)
[2023-04-11] MEDS: INSULIN ASPART PER UNIT CHARGE SC SCH ×4 (08:22→21:06)
[2023-04-11] MEDS: LANTUS PER UNIT CHARGE SQ SCH ×2 (08:22→21:07)
[2023-04-11] MEDS: FOLIC ACID 1 MG TAB PO SCH (08:23)
[2023-04-11] MEDS: lisinopril 40 MG TAB PO SCH (08:23)
[2023-04-11] MEDS: FAMOTIDINE 20 MG TAB PO SCH (08:23)
[2023-04-11] MEDS: amLODIPine BESYLATE 5 MG TAB PO SCH (08:23)
[2023-04-11 08:42] LABS: Hematocrit (blood only) 26.8 % (37.0-47.0); Hemoglobin 8.1 g/dl (12.0-16.0); Mean Corpuscular Hgb Conc 30.2 g/dL (32.0-36.0); Mean Corpuscular Volume 85.9 fL (80.0-100.0); Mean Platelet Volume 11.3 fL (9.4-12.4); Platelet Count 385 K/uL (130-400); RDW Coefficient of Variation 17.5 % (11.5-14.5); RDW Standard Deviation 53.9 fL (36.4-46.3); Red Blood Count 3.12 M/uL (4.20-5.40); White Blood Count 9.69 K/ul (4.8-10.8)
[2023-04-11] MEDS ORDERED: BUMETANIDE 1 MG TAB PO SCH (09:00)
[2023-04-11 09:08] LABS: BUN Creatinine Ratio 15.6 (10-20); Calcium 8.9 mg/dl (8.6-10.3); Creatinine Clr Calc Pharmacy 36.9 ml/min; Est GFR (African American) 26.4 ml/min; Est GFR (Non-African American) 22.8 ml/min; Potassium 4.5 mmol/L (3.5-5.1)
[2023-04-11] MEDS: FLUTICASONE PROPIONATE NA SPR 16 GM BTL SCH (10:07)
[2023-04-11] MEDS: MICONAZOLE NITRATE POWDER 85 GM EXT SCH ×3 (10:07→20:36)
--- NOTE | 2023-04-11 11:46 | Pharmacy Report ---
Pharmacy Glycemic Short Note 2 - Date of Service April 11, 2023 - Glycemic Short BSG Results (Last 24 hours): 04/10/23 04/10/23 04/10/23 12:58 18:24 20:45 Glucose 195 H POC Glucose 214 H 241 H 04/11/23 04/11/23 07:57 08:08 Glucose 133 H POC Glucose 138 H OUTPATIENT ANTIDIABETIC REGIMEN: * Lantus 54 units bid, Novolog TIDM (45 units with breakfast, 40 units with lunch, 35 units with dinner), farxiga 5 mg po daily, metformin 1 gm bid, trulicity weekly ASSESSMENT: 04/11 * Blood sugars above goal yesterday, received 63 units of insulin, 30 units of basal, fasting BSG 133mg/dl this AM. * Home dose much higher than using inpatient yesterday, increase basal at this time, continue CF/CR. 04/10 * 62 year old female, s/p fall. PMHx significant for type 2 diabetes, htn, CHF. Patient on high amounts of insulin outpatient. Pharmacy consulted to assist with glycemic management. She is known to our glycemic service from prior admissions, most recently 03/19 - 03/26 admission. She typically requires much less insulin then outpatient regimen. Plan to utilize similar parameters for insulin as last admission as BSGs stable during that time. PLAN FOR INPATIENT GLYCEMIC CONTROL: * Hold outpatient diabetes medications * Basal insulin * Lantus 25 units SQ BID * Bolus insulin * NovoLog per scale ACHS or Q6hrs while NPO * Goal Range: Low 110 mg/dL - High 140 mg/dL * Correction Factor: 20 mg/dL/unit * Nutritional / Prandial insulin per carb ratio of 1 unit per 7 grams CHO consumed
--- NOTE | 2023-04-11 13:17 | Hospitalist Progress Note ---
Date of Service April 11, 2023 Assessment & Plan (1) Fall: Plan: Patient lost balance and fell in the bathtub. No LOC. Hit back of head and had lower back pain and right hip pain-now improved CT head neg, xray right hip and L-spine with arthritis but no fractures -PT/OT evaluation-recommends SNF -Fall precautions -tylenol prn pain (2) (HFpEF) heart failure with preserved ejection fraction: Plan: She reports increased edema of her bilateral LE and a 5# weight gain over the last 2 days prior to admission With peripheral pitting edema to thighs bilat, no pulm edema or respiratory symptoms. -Bumex 2mg IV x 2 doses was given and had improvement in edema and hand shaker slight rise to 2.2 resume home bumex 2mg po daily -Monitor I/Os, daily weights -follow BMP, mag (3) Uncontrolled diabetes mellitus with hyperglycemia, with long-term current use of insulin: Plan: Last [id number] on 03/20/23 -Continue Lantus at reduced dose from home dose -ISS -Goal blood sugar 110 - 140 -Can resume home Farxiga, Metformin and Dulaglutide on discharge -Pharmacy managing here -on Elavil possibly for neuropathy? (4) Anemia: Plan: B12 recently normal Folate low normal in 01/2023, iron levels low normal then also TSH her normal hgb stable at 8.1, normocytic Likely anemia of chronic kidney disease Check iron studies, folate in AM, follow CBC (5) Diabetic ulcer of right heel: Plan: open heel wound case mgr consulted, needs offloading of pressure (6) Hypertension: Plan: Blood pressure mildly elevated -Continue Lisinopril and Amlodipine -Monitor -continue bumex (7) Hypothyroidism: Plan: Chronic,TSH here normal -Continue Synthroid (8) Ambulatory dysfunction: Plan: needs rehab (9) GERD (gastroesophageal reflux disease): Plan: continue pepcid but may need to be renally dosed to 20mg once daily (10) Osteoarthritis: Plan: right hip tylenol prn pain (11) Morbid obesity with BMI of 60.0-69.9, adult: Plan: BMI 63.7 needs weight loss (12) Hypercholesteremia: Plan: Chronic. Stable -Continue Atorvastatin Plan DVT proph-add on Heparin SQ Dispo-medically stable for discharge, awaiting insurance auth for SNF Admission and Anticipated Discharge Date Admission Date: April 10, 2023 Anticipated date of discharge: 04/12/23 Subjective Pt reports pain in head, hip and lower back is better an dis currently at a level of a "low hum." No SOB, no other concerns Physical Exam Constitutional: WD/WN, vitals as above + morbidly obese Respiratory: normal respiratory effort, lungs clear to auscultation Cardiovascular: Rate/Rhythm: regular rate and regular rhythm Heart Sounds: no murmur Extremities: + edema (2+ pitting edema legs to thighs bilat) Gastrointestinal (Abdomen): normal bowel sounds, soft, nontender, no hepatosplenomegaly Musculoskeletal: Extremities: no cyanosis and no clubbing Skin: + ulcer (right heel full skin thickness 4cm wound) Neurologic: moves all extremities and awake; no focal motor deficits Psychiatric: A+Ox3, euthymic affect Results & Data Results & Data Vital Signs (Past 12 Hours) Vital Signs Temp Pulse Resp BP Pulse Ox O2 Del Method 04/11/23 12:17 36.6 C 66 22 168/77 H 93 Room Air 04/11/23 09:00 Room Air 04/11/23 08:12 36.8 C 77 22 173/70 H 95 Room Air Laboratory Results CBC, BMP reviewed PG Care Time/CCT Total # of Minutes Spent Total Time Spent with Patient: Total time spent is greater than 50% in coordination of care (as documented) at patient's floor/unit and/or counseling patient: Coding Level of Care Code 88675 SUB INP/OBS CARE 2/35MIN Diagnoses Fall W19.XXXA (HFpEF) heart failure with preserved ejection fraction I50.30 Uncontrolled diabetes mellitus with hyperglycemia, with long-term current use of insulin E11.65; Z79.4 Anemia D64.9 Anemia type: unspecified type Diabetic ulcer of right heel associated with type 2 diabetes mellitus, with fat layer exposed E11.621; L97.412 Diabetes mellitus type: type 2 Non-pressure ulcer stage: with fat layer exposed Essential hypertension I10 Hypertension type: essential hypertension Acquired hypothyroidism E03.9 Hypothyroidism type: acquired Ambulatory dysfunction R26.2 GERD (gastroesophageal reflux disease) K21.9 Osteoarthritis M19.90 Morbid obesity with BMI of 60.0-69.9, adult E66.01; Z68.44 Hypercholesteremia E78.00 (4) Anemia Anemia type: unspecified type Qualified Code(s): D64.9 - Anemia, unspecified (5) Diabetic ulcer of right heel Diabetes mellitus type: type 2 Non-pressure ulcer stage: with fat layer exposed Qualified Code(s): E11.621 - Type 2 diabetes mellitus with foot ulcer; L97.412 - Non-pressure chronic ulcer of right heel and midfoot with fat layer exposed (6) Hypertension Hypertension type: essential hypertension Qualified Code(s): I10 - Essential (primary) hypertension (7) Hypothyroidism Hypothyroidism type: acquired Qualified Code(s): E03.9 - Hypothyroidism, unspecified
[2023-04-11] MEDS: BUMETANIDE 1 MG TAB PO SCH (13:26)
[2023-04-11] MEDS ORDERED: hydrALAZINE HCL 20 MG/ML VIAL IV PRN (16:37)
[2023-04-11] MEDS: ATORVASTATIN 40 MG TAB PO SCH (20:36)
[2023-04-11] MEDS: AMITRIPTYLINE HCL 100 MG TAB PO SCH (20:36)
[2023-04-11] MEDS: HEPARIN SOD 5,000 UNIT/0.5 ML VIAL SQ SCH (20:37)
[2023-04-12] MEDS ORDERED: CALCIUM CARBONATE 500 MG CHEWABLE TAB PO STA (00:14)
[2023-04-12] MEDS: LEVOTHYROXINE SODIUM 175 MCG TABLET PO SCH (05:45)
[2023-04-12 08:09] LABS: Ferritin 92.9 ng/ml (8-388)
[2023-04-12 08:12] LABS: Hematocrit (blood only) 26.2 % (37.0-47.0); Hemoglobin 7.8 g/dl (12.0-16.0); Mean Corpuscular Hemoglobin 26.2 pg (25.0-34.0); Mean Corpuscular Hgb Conc 29.8 g/dL (32.0-36.0); Mean Corpuscular Volume 87.9 fL (80.0-100.0); RDW Standard Deviation 57.3 fL (36.4-46.3); Red Blood Count 2.98 M/uL (4.20-5.40); White Blood Count 8.96 K/ul (4.8-10.8)
[2023-04-12 08:17] LABS: Calcium 8.8 mg/dl (8.6-10.3); Magnesium 1.4 mg/dl (1.7-2.4); Potassium 4.6 mmol/L (3.5-5.1)
[2023-04-12 08:20] LABS: Basophils # (auto) 0.04 K/uL (0.00-0.20); Basophils % (auto) 0.4 %; Eosinophils # (auto) 0.29 K/uL (0.00-0.50); Eosinophils % (auto) 3.2 %; Immature Granulocytes # (auto) 0.04 K/uL (0.01-0.20); Immature Granulocytes % (auto) 0.4 %; Lymphocytes # (auto) 3.88 K/uL (1.20-3.40); Lymphocytes % (auto) 43.3 %; Monocytes # (auto) 0.67 K/uL (0.11-0.59); Monocytes % (auto) 7.5 %; Neutrophils # (auto) 4.04 K/uL (1.40-6.50); Neutrophils % (auto) 45.2 %
[2023-04-12] MEDS: INSULIN ASPART PER UNIT CHARGE SC SCH ×2 (08:22→12:55)
[2023-04-12] MEDS: LANTUS PER UNIT CHARGE SQ SCH (08:22)
[2023-04-12 08:23] LABS: BUN Creatinine Ratio 15.3 (10-20); Creatinine Clr Calc Pharmacy 36.4 ml/min; Est GFR (African American) 25.7 ml/min; Est GFR (Non-African American) 22.2 ml/min
[2023-04-12] MEDS: amLODIPine BESYLATE 5 MG TAB PO SCH (08:23)
[2023-04-12] MEDS: BUMETANIDE 1 MG TAB PO SCH (08:23)
[2023-04-12] MEDS: lisinopril 40 MG TAB PO SCH (08:24)
[2023-04-12] MEDS: HEPARIN SOD 5,000 UNIT/0.5 ML VIAL SQ SCH (08:24)
[2023-04-12] MEDS: FOLIC ACID 1 MG TAB PO SCH (08:24)
[2023-04-12] MEDS: MICONAZOLE NITRATE POWDER 85 GM EXT SCH (08:24)
[2023-04-12] MEDS: FLUTICASONE PROPIONATE NA SPR 16 GM BTL SCH (08:24)
[2023-04-12] MEDS ORDERED: FAMOTIDINE 20 MG TAB PO SCH (09:00)
[2023-04-12] MEDS ORDERED: MAGNESIUM SULFATE / D5W 1 GM/100 ML BAG IV SCH (09:30)
[2023-04-12] MEDS ORDERED: IRON SUCROSE 200 MG in 0.9 % SODIUM CHLORIDE 100 ML IV SCH (09:45)
--- NOTE | 2023-04-12 11:30 | Discharge Summary ---
Discharge Summary Date of Service April 12, 2023 Notes For Next Care Provider Needs close follow up with Nephrology as scheduled for 04/13/23 Needs close follow up with [facility] Ne[facility] with [facility] Medication Changes From Visit Discontinued lisinopril Discontinued metformin Reduced Lantus to 25 units bid Reduced famotidine to 20mg po daily Admission HPI Per Admitting Provider Alexandria Smith is a 62yo female with history of HTN, HLP, DM, CKD and GERD presenting after a fall at home. She was getting out of the bathtub - reports that it was difficult to bend her knees due to fluid on her legs. Unfortunately she slipped, fell and hit the back of her head on the bathtub. She did not lose consciousness. Was not able to get up so called EMS and came to the hospital. In the ER she is afebrile, HD stable. Concerned that she cannot take care of herself at home right now and is requesting temporary rehab placement. Principal Dx & Hospital Course #1 = Principal Diagnosis (1) Fall: Patient lost balance and fell in the bathtub. No LOC. Hit back of head and had lower back pain and right hip pain-now improved CT head neg, xray right hip and L-spine with arthritis but no fractures -PT/OT evaluation-recommends SNF -Fall precautions -tylenol prn pain (2) (HFpEF) heart failure with preserved ejection fraction: She reports increased edema of her bilateral LE and a 5# weight gain over the last 2 days prior to admission With peripheral pitting edema to thighs bilat, no pulm edema or respiratory symptoms. -Bumex 2mg IV x 2 doses was given and had improvement in edema and rollway man slight rise to 2.2 but stable -continue home bumex 2mg po daily -continue home Farxiga which is more for her DM at the 5mg dose but does have benefit with CHF -BPs are controlled -Monitor I/Os, daily weights -follow BMP, mag (3) Uncontrolled diabetes mellitus with hyperglycemia, with long-term current use of insulin: Last [id number]=0 on 03/20/23 -Continue Lantus at reduced dose from home dose -ISS -Goal blood sugar 110 - 140 -Can resume home Farxiga and Dulaglutide on discharge, but DISCONTINUE metformin due to poor renal function -on Elavil possibly for neuropathy? (4) CKD (chronic kidney disease) stage 4, GFR 15-29 ml/min: Boat Buffer Plastic up slightly from baseline at 2.2, with mild met acidosis, normal K+ STOP lisinopril continue Bumex, Farxiga f/u with Nephro as scheduled tomorrow (5) Anemia: B12 recently normal Folate low normal in 01/2023 but now normal on replacement, iron levels low normal then also TSH here normal hgb stable at 7.8-8.1, normocytic Fe studies here with transferrin sat low at 13%, ferritin 90. Did receive 1 unit PRBCs last admission a few weeks ago Gave Venofer 200mg IV x 1 here Likely anemia of chronic kidney disease Follow CBC as outpt and needs Epogen likely which can be arranged through Nephrology Continue po FeSO4 (6) Diabetic ulcer of right heel: open heel wound, with noncompressible ABIs but TBI acceptable last year seen by [facility]ascular [facility]. No evidence of infection here, seen by occupational therapist Needs offloading she Has MRI scheduled to assess for OM on 04/13/23 but reent xray neg for OM Daily dressing changes (7) Hypertension: Blood pressure controlled -Continue Amlodipine which was recently increased to 10mg but she was to STOP lisinopril at last Nephrology visit in Dec 2022 due to rising rollway man and never did -dc lisinopril -Monitor BPs at rehab -continue bumex (8) Hypothyroidism: Chronic,TSH here normal -Continue Synthroid (9) Ambulatory dysfunction: needs rehab (10) GERD (gastroesophageal reflux disease): continue pepcid but may renally dosed down to 20mg once daily (11) Osteoarthritis: right hip tylenol prn pain (12) Morbid obesity with BMI of 60.0-69.9, adult: BMI 63.7 needs weight loss is on Trulicity (13) Hypercholesteremia: Chronic. Stable -Continue Atorvastatin (14) Junctional rhythm: on last admission, was to wear MCOT x 30 days afterwards-need to make sure this is arranged Plan DVT proph-Heparin SQ Dispo-medically stable for discharge to [facility] Discharge Exam Constitutional WD/WN, vitals as above + morbidly obese Respiratory normal respiratory effort, lungs clear to auscultation Cardiovascular Rate/Rhythm: regular rate and regular rhythm Heart Sounds: no murmur Extremities: + edema (2+ pitting edema legs to thighs bilat) Gastrointestinal (Abdomen) normal bowel sounds, soft, nontender, no hepatosplenomegaly Musculoskeletal Extremities: no cyanosis and no clubbing Skin + ulcer (right heel full skin thickness 4cm wound) Neurologic moves all extremities and awake; no focal motor deficits Psychiatric A+Ox3, euthymic affect Updated Medication List Medication Instructions Recorded Confirmed Type amitriptyline 50 mg tablet 100 mg PO HS 12/06/17 04/10/23 History fluticasone propionate 50 1 spray intranasal QAM 03/10/19 04/10/23 History mcg/actuation nasal spray,suspension levothyroxine 175 mcg tablet 175 mcg PO QAM 03/10/19 04/10/23 History (Synthroid) atorvastatin 80 mg tablet 80 mg PO HS 02/19/20 04/10/23 History loratadine 10 mg tablet 10 mg PO DAILY PRN Allergy Symptoms 01/19/21 04/10/23 History pen needle, diabetic 32 gauge x 06/20/21 04/10/23 History 5/32" (BD Ultra-Fine Siria Pen Needle) blood sugar diagnostic (FreeStyle 06/29/21 04/10/23 History Precision Perico Strips) flash glucose scanning reader 06/29/21 04/10/23 History (FreeStyle Davy 14 Day Perry) flash glucose sensor (FreeStyle 06/29/21 04/10/23 History Davy 14 Day Sensor kit) lancets 30 gauge (OneTouch Delica 06/29/21 04/10/23 History Lancets) cholecalciferol (vitamin D3) 50 50 mcg PO QAM 02/09/22 04/10/23 History mcg (2,000 unit) capsule dulaglutide 1.5 mg/0.5 mL 1.5 mg subcut WK 07/25/22 04/10/23 [facility] dapagliflozin propanediol 5 mg 5 mg PO QAM #90 tabs 10/19/22 04/10/23 Rx tablet (Farxiga) cyanocobalamin (vitamin B-12) 1,000 mcg PO DAILY #30 tabs 01/16/23 04/10/23 Rx 1,000 mcg tablet ferrous sulfate 325 mg (65 mg 325 mg PO DAILY #30 tabs 01/16/23 04/10/23 Rx iron) tablet folic acid 1 mg tablet 1,000 mcg PO DAILY #30 tabs 01/16/23 04/10/23 Rx insulin aspart U-100 100 unit/mL 0 sliding scale dose subcut TIDM 01/25/23 04/10/23 History (3 mL) subcutaneous pen (Novolog FlexPen U-100 Insulin aspart) albuterol sulfate 90 mcg/actuation 2 puff inhalation QID PRN wheezing 03/19/23 04/10/23 History aerosol inhaler ipratropium 20 mcg-albuterol 100 2 puff inhalation BID PRN 03/19/23 04/10/23 History mcg/actuation mist for inhalation Shortness Of Breath Or Wheezing (Combivent Respimat) omeprazole 20 mg capsule,delayed 20 mg PO DAILY 03/19/23 04/10/23 History release bumetanide 1 mg tablet 2 mg (2 x 1 mg) PO QAM #60 tabs 04/05/23 04/10/23 Rx acetaminophen 325 mg tablet 650 mg (2 x 325 mg) PO Q4H PRN 04/12/23 Rx pain #30 tabs amlodipine 10 mg tablet 10 mg PO DAILY #30 tabs 04/12/23 Rx famotidine 20 mg tablet 20 mg PO QAM #30 tabs 04/12/23 04/10/23 Rx insulin glargine 100 unit/mL 25 unit (0.25 mL) subcut BID #10 mL 04/12/23 04/10/23 Rx subcutaneous solution (Lantus U-100 Insulin) miconazole nitrate 2 % topical 1 applic EXT TID #85 grams 04/12/23 Rx powder (Desenex) Hospital Stay Data Consultations 04/10/23 04:02 ED Decision to Admit Stat Diagnostic Imagining Performed 04/10/23 00:09 CT cervical spine wo con Stat 04/10/23 00:10 CT head/brain wo con Stat Pending Results Patient Have Any Pending Studies at Discharge: No Discharge Instructions Given to Patient (Per Discharging Provider) You were admitted after falling at home. You will need PT/OT for rehab and strengthening. Continue to follow up at the [facility] for your heel wound and keep the appointment for your foot MRI for 04/13/23. Keep your appointment with Dr. Caballero for Nephrology for 04/13/23. You were supposed to have STOPPED your lisinopril at the last visit with Dr. Caballero because of your worsening kidney function. This medication will now be stopped. For your diabetes, your metformin will be STOPPED due to your worsening kidney function and your Lantus dosing was cut in half as you are not requiring as much insulin as you needed before. Total Time Total Time Spent Total Time Spent (In Minutes): 45 min Coding Level of Care Code 57024 INP/OBS DISCH >30 MIN Diagnoses Fall W19.XXXA (HFpEF) heart failure with preserved ejection fraction I50.30 Uncontrolled diabetes mellitus with hyperglycemia, with long-term current use of insulin E11.65; Z79.4 CKD (chronic kidney disease) stage 4, GFR 15-29 ml/min N18.4 Anemia D64.9 Anemia type: unspecified type Diabetic ulcer of right heel associated with type 2 diabetes mellitus, with fat layer exposed E11.621; L97.412 Diabetes mellitus type: type 2 Non-pressure ulcer stage: with fat layer exposed Essential hypertension I10 Hypertension type: essential hypertension Acquired hypothyroidism E03.9 Hypothyroidism type: acquired Ambulatory dysfunction R26.2 GERD (gastroesophageal reflux disease) K21.9 Osteoarthritis M19.90 Morbid obesity with BMI of 60.0-69.9, adult E66.01; Z68.44 Hypercholesteremia E78.00 Junctional rhythm I49.8
== END 2023-04-12 13:13 ==
LOC: SUATTDRO → EDINP 22:25 → ED 22:25 → SUATTDRO 04-10 04:48 → 3N 04-10 08:34

== ENCOUNTER 2023-05-03 23:25 | Inpatient (IN) ==
--- NOTE | 2023-05-03 23:45 | Emergency Department Note ---
Impression & Plan Weakness, Anemia, Hypomagnesemia, Hyperglycemia, Pain in right knee, Left hip pain, Fall, Abnormal chest x-ray ED Provider Note NAME: JASPER AIKEN AGE: 62 SEX: F : 1960 ARRIVES VIA: Ambulance INFORMANT: [Patient][ems] ED PROVIDER(S): [Chilango Mercado MD] CHIEF COMPLAINT: Fall HISTORY OF PRESENT ILLNESS: The patient is a 62-year-old female who states that around 6 hours ago, she fell. She slipped on some urine that had leaked out of her depends. The patient was not able to get up on her own. EMS was summoned. She was helped onto the couch. Patient states that later on, she tried to get off the couch and, had a lot of right knee pain. She could not stand. Her left hip hurt. She did not feel safe at home as she does live alone. There has been no cough or congestion or shortness of breath. No fever or chills. She denies hitting her head, there was no loss of consciousness, she has no neck or back discomfort. She is not on blood thinning agents. PMHx/PSHx/Social Hx: See Below PHYSICAL EXAM: GENERAL: Patient is in no acute distress. HEENT: No acute trauma, normocephalic atraumatic, mucous membranes dry, no nasal congestion. NECK: No stridor, no adenopathy, no meningismus, trachea is midline. LUNGS: Clear to auscultation bilaterally when listening anterior, no wheeze, no rhonchi, breath sounds equal. HEART: Without murmurs gallops or rubs, regular rate and rhythm. Heart tones are distant. ABDOMEN: Soft, nontender, no peritonitis. Obese. EXTREMITIES: No cyanosis. She does have chronic significant bilateral pedal edema. There is a dry wrap on her right foot and ankle. She has pain with movement of the right knee, no gross deformity. No real pain to palpate the left hip. No left lower extremity deformity seen. NEUROLOGIC: Oriented x 3, no acute motor or sensory deficits, no focal weakness. SKIN: No jaundice, no diaphoresis. DIFFERENTIAL DIAGNOSIS: Fracture, sprain, strain, dislocation, electrolyte imbalance, anemia, UTI, dehydration, among others. EMERGENCY DEPARTMENT PROCEDURES: MEDICAL DECISION MAKING: There is a mild leukocytosis, this could be consistent with infection or the stress of her fall. The patient was anemic but this is baseline. Sodium slightly low but not in need of emergent correction. The patient did have a high creatinine, this was baseline when looking back at previous testing. Glucose was high at 320. Magnesium was somewhat low at 1.5. No concerning liver enzyme elevation. No evidence for issues with her thyroid. ECG showed what appears to be a sinus versus junctional rhythm. There was no evidence for acute cardiac ischemia. Cardiac enzyme testing x 1 was slightly elevated. She has a history of a mildly elevated troponin value. Chest x-ray shows a potential effusion versus infiltrate at the right lung base. CT imaging of the chest has been ordered and is pending. Right knee film does not show fracture, arthritis was seen. Left hip and pelvis film does not show fracture or dislocation. Urinalysis result is still pending. On exam, the patient did seem somewhat dehydrated clinically. She was awake and interactive. She denied feeling short of breath or having any recent fever. The patient received a 500 cc saline bolus. She was ordered for IV morphine for pain, IV Zofran for nausea. She was given a dose of IV insulin, 6 units. She was given IV Tylenol. She received IV magnesium for the lower magnesium value. The patient has fallen. She could not stand earlier. She lives alone. She is not safe for discharge. She will require a hospital stay. I did speak with the patient and case management, the on-call hospitalist has been consulted. In short, the patient slipped and fell. She has significant right knee and left hip pain from the fall although nothing appears fractured. She was found to be anemic, hyperglycemic and hypomagnesemic. She has an abnormal chest x-ray. She requires further medical workup, she likely will require rehab and strengthening. Prior/Outside records/notes reviewed: Today's EMS notes describing her presentation and the transport to this hospital. ECG per my interpretation: Indication was fall and weakness. The ECG shows what appears to be a sinus rhythm versus a junctional rhythm. The rate was 66. There was a poor baseline. LVH was present. There was a right bundle branch block. There was no ST elevation, no PVCs. The QTc is 478. Compared to an ECG from a 19 March 2023, I see no significant change. Continuous Cardiac Monitoring per my interpretation: An order was placed for continuous cardiac monitoring. The monitor shows a rate of 71 with normal sinus rhythm. Imaging/x-ray results per my interpretation: Left hip and pelvis film did not show any fracture per my review. Chest x-ray showed potential infiltrate versus effusion at the right base. I saw no findings of CHF. There was no pneumothorax. Right knee film showed arthritis, no fracture or bony dislocation. Chronic Medical/Social conditions affecting care: Obesity. Care/Management discussed with: Case management, the on-call hospitalist. Level of care consideration(s): After review of the information above and other included data: --I believe the patient requires escalation of care to admission DISPOSITION: Admission Past Med/Surg History Medical History CKD (chronic kidney disease) stage 4, GFR 15-29 ml/min Pseudomonas infection History of anesthesia reaction woke up during shoulder arthroscopy Peritonsillar abscess recent admission @ [facility] 01/29/22 for this--per pt has finished all antibiotics for this, no further issues at this time Chronic kidney disease, stage III (moderate) SOB (shortness of breath) RBBB Hypoxia Hyperglycemia due to type 2 diabetes mellitus Pneumonia due to COVID-19 virus COVID-19 hx of in 2019--per pt was hospitalized for COVID--states no symptoms currently Bifascicular block Foot drop LEFT Chronic back pain Osteoarthritis Hx of irritable bowel syndrome Cataract Bilateral Umbilical hernia Hiatal hernia PTSD (post-traumatic stress disorder) History of diverticulitis Tear of medial meniscus of right knee, current Morbid obesity with BMI of 50.0-59.9, adult Diabetes mellitus with hyperglycemia, with long-term current use of insulin Neck pain Narrowing of C6-C7 with bone spurs. CAUSES NUMBNESS IN LEFT ARM GERD (gastroesophageal reflux disease) Depression Anxiety Hyperlipidemia Hypertension Asthma COLD WEATHER FLARES UP/DENIES RECENT FLARE UP/ALBUTEROL ONLY PRN History of migraine Hyperosmolar hyponatremia Fibromyalgia Hypothyroidism Surgical History History of repair of right rotator cuff History of repair of left rotator cuff History of repair of ACL L S/P rotator cuff repair History of arthroscopy of right shoulder History of dilatation and curettage History of repair of ACL R History of esophagogastroduodenoscopy (EGD) History of colonoscopy History of D&C Family History Grandfather Diabetes Mother Myocardial infarction Heart disease Tobacco abuse Hx of CABG Family/Other Family history of diabetes mellitus Brother Family history of diabetes mellitus Father Aortic aneurysm Grandmother (Paternal) Cerebral aneurysm Stroke Other Family history of colon cancer in mother Social History Smoking Status: Never smoker Second Hand Exposure: Yes; Do You Dip or Chew Tobacco: No; Hx Alcohol Use: No Hx Substance Use: No Preferred Language: Maori Communication Ability: Effective Visual Impairment: No Limitations Office Associate Required: No Beliefs That Will Affect Care: None marital status: Current Living Situation: Alone Feels Safe at Home: Yes Assistive Devices: Walker Allergies Allergies Allergy/AdvReac Type Severity Reaction Status Date / Time amoxicillin Allergy Intermediate hives Verified 05/03/23 09:51 dextromethorphan Allergy Intermediate Hives Verified 05/03/23 09:51 [From NyQuil] doxylamine [From NyQuil] Allergy Intermediate Hives Verified 05/03/23 09:51 latex Allergy Intermediate RASH Verified 05/03/23 09:51 Sulfa (Sulfonamide Allergy Intermediate RASH Verified 05/03/23 09:51 Antibiotics) clarithromycin AdvReac Intermediate HEART RACES Verified 05/03/23 09:51 Umesh's multigrain bread Allergy Intermediate Hives Uncoded 05/03/23 09:51 Home Meds Home Medications Medication Instructions Recorded Confirmed amitriptyline 50 mg tablet 100 mg PO HS 12/06/17 05/03/23 fluticasone propionate 50 1 spray intranasal QAM 03/10/19 05/03/23 mcg/actuation nasal spray,suspension levothyroxine 175 mcg tablet 175 mcg PO QAM 03/10/19 05/03/23 (Synthroid) atorvastatin 80 mg tablet 80 mg PO HS 02/19/20 05/03/23 loratadine 10 mg tablet 10 mg PO DAILY PRN Allergy Symptoms 01/19/21 05/03/23 pen needle, diabetic 32 gauge x 06/20/21 05/03/23 5/32" (BD Ultra-Fine Siria Pen Needle) blood sugar diagnostic (FreeStyle 06/29/21 05/03/23 Precision Perico Strips) flash glucose scanning reader 06/29/21 05/03/23 (FreeStyle Davy 14 Day [place]) flash glucose sensor (FreeStyle 06/29/21 05/03/23 Davy 14 Day Sensor kit) lancets 30 gauge (OneTouch Delica 06/29/21 05/03/23 Lancets) cholecalciferol (vitamin D3) 50 50 mcg PO QAM 02/09/22 05/03/23 mcg (2,000 unit) capsule dulaglutide 1.5 mg/0.5 mL 1.5 mg subcut WK 07/25/22 05/03/23 subcutaneous pen injector (TrulicLINAGORA) albuterol sulfate 90 mcg/actuation 2 puff inhalation QID PRN wheezing 03/19/23 05/03/23 aerosol inhaler ipratropium 20 mcg-albuterol 100 2 puff inhalation BID PRN 03/19/23 05/03/23 mcg/actuation mist for inhalation Shortness Of Breath Or Wheezing (Combivent Respimat) omeprazole 20 mg capsule,delayed 20 mg PO DAILY 03/19/23 05/03/23 release insulin aspart U-100 100 unit/mL 1 sliding scale dose subcut 04/13/23 05/03/23 subcutaneous solution (Novolog USEASDIRECTD U-100 Insulin aspart) insulin aspart U-100 100 unit/mL 35 unit subcut QPM 04/13/23 05/03/23 subcutaneous solution (Novolog U-100 Insulin aspart) insulin aspart U-100 100 unit/mL 40 unit subcut QPM 04/13/23 05/03/23 subcutaneous solution (Novolog U-100 Insulin aspart) insulin aspart U-100 100 unit/mL 45 unit subcut QPM 04/13/23 05/03/23 subcutaneous solution (Novolog U-100 Insulin aspart) Previous Rx's Medication Instructions Recorded dapagliflozin propanediol 5 mg 5 mg PO QAM #90 tabs 10/19/22 tablet (Farxiga) cyanocobalamin (vitamin B-12) 1,000 mcg PO DAILY #30 tabs 01/16/23 1,000 mcg tablet ferrous sulfate 325 mg (65 mg 325 mg PO DAILY #30 tabs 01/16/23 iron) tablet folic acid 1 mg tablet 1,000 mcg PO DAILY #30 tabs 01/16/23 bumetanide 1 mg tablet 2 mg (2 x 1 mg) PO QAM #60 tabs 04/05/23 acetaminophen 325 mg tablet 650 mg (2 x 325 mg) PO Q4H PRN 04/12/23 pain #30 tabs amlodipine 10 mg tablet 10 mg PO DAILY #30 tabs 04/12/23 famotidine 20 mg tablet 20 mg PO QAM #30 tabs 04/12/23 insulin glargine 100 unit/mL 25 unit (0.25 mL) subcut BID #10 mL 04/12/23 subcutaneous solution (Lantus U-100 Insulin) miconazole nitrate 2 % topical 1 applic EXT TID #85 grams 04/12/23 powder (Desenex) Results & Data (ED) Vital Signs Vital Signs - 24 hr 05/03/23 23:39 05/03/23 23:53 05/04/23 00:00 Temperature 36.7 C Temperature Source Oral Pulse Rate 68 68 72 Respiratory Rate 18 19 18 Respiratory Effort / Characteristics Non-Labored Respiratory Depth Normal Respiratory Pattern Regular Blood Pressure 157/96 H Blood Pressure Mean 116 Pulse Oximetry 97 98 96 Oxygen Delivery Method Room Air Room Air Room Air Sepsis Recent Fever Within 48 Hours No Sepsis New/Unexplained Change in Mental Status N/A Sepsis Action Taken by Nursing No Action Required 05/04/23 00:30 05/04/23 01:00 05/04/23 01:20 Temperature Temperature Source Pulse Rate 66 67 Respiratory Rate 20 17 Respiratory Effort / Characteristics Respiratory Depth Respiratory Pattern Blood Pressure Blood Pressure Mean Pulse Oximetry 92 Oxygen Delivery Method Room Air Sepsis Recent Fever Within 48 Hours Sepsis New/Unexplained Change in Mental Status Sepsis Action Taken by Nursing 05/04/23 01:31 05/04/23 02:00 Temperature Temperature Source Pulse Rate 70 69 Respiratory Rate 21 15 Respiratory Effort / Characteristics Respiratory Depth Respiratory Pattern Blood Pressure 185/83 H 125/82 Blood Pressure Mean 117 96 Pulse Oximetry 92 95 Oxygen Delivery Method Room Air Room Air Sepsis Recent Fever Within 48 Hours Sepsis New/Unexplained Change in Mental Status Sepsis Action Taken by Usp Medications Current Medication List: was personally reviewed by me Laboratory Data Attestation: I reviewed the patient's lab results. 05/04/23 01:15 05/04/23 01:15 Lab Results 05/04/23 Range/Units 01:15 WBC 12.10 H (4.8-10.8) K/ul RBC 3.32 L (4.20-5.40) M/uL Hgb 8.7 L (12.0-16.0) g/dl Hct 29.0 L (37.0-47.0) % MCV 87.3 (80.0-100.0) fL MCH 26.2 (25.0-34.0) pg MCHC 30.0 L (32.0-36.0) g/dL RDW Std Deviation 57.2 H (36.4-46.3) fL RDW Coeff of Sylvia 17.9 H (11.5-14.5) % Plt Count 345 (130-400) K/uL MPV 11.5 (9.4-12.4) fL Immature Gran % (Auto) 0.7 % Neut % (Auto) 67.7 % Lymph % (Auto) 21.7 % [place] % (Auto) 7.4 % Eos % (Auto) 2.0 % Baso % (Auto) 0.5 % Neut # (Auto) 8.19 H (1.40-6.50) K/uL Lymph # (Auto) 2.63 (1.20-3.40) K/uL [place] # (Auto) 0.90 H (0.11-0.59) K/uL Eos # (Auto) 0.24 (0.00-0.50) K/uL Baso # (Auto) 0.06 (0.00-0.20) K/uL Immature Gran # (Auto) 0.08 (0.01-0.20) K/uL Sodium 135 L (136-145) mmol/L Potassium 3.8 (3.5-5.1) mmol/L Chloride 103 (98-107) mmol/L Carbon Dioxide 23 (21-32) mmol/L Anion Gap 9 (3-11) BUN 19 (6-23) mg/dl Creatinine 2.12 H (0.6-1.2) mg/dl Est Cr Clr Drug Dosing 40.1 ml/min Est GFR ( Amer) 28.2 ml/min Est GFR (Non-Af Amer) 24.3 ml/min BUN/Creatinine Ratio 9.0 L (10-20) Glucose 320 H* (70-99(Fasting)) mg/dl Calcium 8.3 L (8.6-10.3) mg/dl Magnesium 1.5 L (1.7-2.4) mg/dl Total Bilirubin 0.3 (0.2-1.0) mg/dl AST 19 (13-39) U/L ALT 10 (7-52) U/L Alkaline Phosphatase 126 H (34-104) U/L Total Creatine Kinase 66 (26-192) U/L Troponin I High Sens 15.8 H (0-14) pg/ml Total Protein 7.0 (6.0-8.3) gm/dl Albumin 2.8 L (3.4-5.0) gm/dl Globulin 4.2 H (2.5-4.0) gm/dl Albumin/Globulin Ratio 0.7 L (0.9-2) TSH 3.393 (0.300-4.500) uIu/ml Administered Medications Discontinued Medications Sodium Chloride (Nss) 500 mls @ 999 mls/hr IV .Q31M WESLY Stop: 05/04/23 00:15 Last Infusion: 05/04/23 02:21 Dose: Infused Documented By: Admin: 05/04/23 01:23 Dose: 999 mls/hr Documented By: ALESSANDRA Acetaminophen (Ofirmev) 1,000 mg in 100 mls @ 400 mls/hr IV NOW STA Stop: 05/03/23 23:53 Last Infusion: 05/04/23 02:20 Dose: Infused Documented By: Admin: 05/04/23 01:24 Dose: 400 mls/hr Documented By: ALESSANDRA Morphine Sulfate (Morphine Sulfate 4 Mg/Ml 1 Ml Carp\\Vial) 4 mg IV NOW STA Stop: 05/03/23 23:40 Last Admin: 05/04/23 01:23 Dose: 4 mg Documented By: ALESSANDRA Ondansetron HCl (Ondansetron Inj 2 Mg/Ml 2 Ml Vial) 4 mg IV NOW STA Stop: 05/03/23 23:40 Last Admin: 05/04/23 01:23 Dose: 4 mg Documented By: ALESSANDRA Discharge Plan Visit Data Chief Complaint: Fall Stated Complaint: Fall, R Knee Pain, Weakness ED Provider: Chilango Mercado Discharge Problem: Weakness, Anemia, Hypomagnesemia, Hyperglycemia, Pain in right knee, Left hip pain, Fall, Abnormal chest x-ray Patient Disposition: Admitted As Inpatient Condition: Fair Forms Stand Alone Forms: [facility] Prescriptions Prescriptions: No Action Trulicity 1.5 mg/0.5 mL pen injector 1.5 mg subcut WK Rx Instructions: Sunday Farxiga 5 mg tablet 5 mg PO QAM Qty: 90 0RF (DME) FreeStyle Precision Perico Strips Strip See Rx Instructions .Route Rx Instructions: Test once daily with Freestyle Davy PRN (DME) FreeStyle Davy 14 Day Sensor Kit See Rx Instructions .Route Rx Instructions: As directed (DME) FreeStyle Davy 14 Day [place] Misc See Rx Instructions .Route Rx Instructions: As directed (DME) pen needle, diabetic [BD Ultra-Fine Siria Pen Needle] 32 gauge x 5/32" needle See Rx Instructions .Route Rx Instructions: Use 4 per day with insulin injection (DME) lancets [OneTouch Delica Lancets] 30 gauge misc See Rx Instructions .Route Rx Instructions: Test blood sugar once daily PRN bumetanide 1 mg tablet 2 mg PO QAM Qty: 60 3RF insulin aspart U-100 [Novolog U-100 Insulin aspart] 100 unit/mL solution 35 unit subcut QPM Rx Instructions: with dinner insulin aspart U-100 [Novolog U-100 Insulin aspart] 100 unit/mL solution 40 unit subcut QPM Rx Instructions: with lunch insulin aspart U-100 [Novolog U-100 Insulin aspart] 100 unit/mL solution 45 unit subcut QPM Rx Instructions: with dinner insulin aspart U-100 [Novolog U-100 Insulin aspart] 100 unit/mL solution 1 sliding scale dose subcut USEASDIRECTD loratadine 10 mg tablet 10 mg PO DAILY PRN (Reason: Allergy Symptoms) levothyroxine [Synthroid] 175 mcg Tablet 175 mcg PO QAM fluticasone propionate 50 mcg/actuation [place],Suspension 1 spray INTRANASAL QAM atorvastatin 80 mg tablet 80 mg PO HS amitriptyline 50 mg Tablet 100 mg PO HS cyanocobalamin (vitamin B-12) 1,000 mcg tablet 1,000 mcg PO DAILY Qty: 30 5RF folic acid 1 mg tablet 1,000 mcg PO DAILY Qty: 30 0RF Rx Instructions: stop after 30 days. ferrous sulfate 325 mg (65 mg iron) tablet 325 mg PO DAILY Qty: 30 1RF albuterol sulfate 90 mcg/actuation HFA aerosol inhaler 2 puff INHALATION QID PRN (Reason: wheezing ) Combivent Respimat 20-100 mcg/actuation mist 2 puff INHALATION BID PRN (Reason: Shortness Of Breath Or Wheezing) omeprazole 20 mg capsule,delayed release(DR/EC) 20 mg PO DAILY acetaminophen 325 mg Tablet 650 mg PO Q4H PRN (Reason: pain) Qty: 30 0RF miconazole nitrate [Desenex] 2 % Powder 1 applic EXT TID Qty: 85 0RF insulin glargine [Lantus U-100 Insulin] 100 unit/mL solution 25 unit subcut BID Qty: 10 0RF famotidine 20 mg tablet 20 mg PO QAM Qty: 30 0RF amlodipine 10 mg tablet 10 mg PO DAILY Qty: 30 0RF cholecalciferol (vitamin D3) 50 mcg (2,000 unit) capsule 50 mcg PO QAM Referrals Referrals: Natali Langston DO [Primary Care Provider] - Discharge Problem: Anemia Qualifiers: Anemia type: unspecified type Qualified Code(s): D64.9 - Anemia, unspecified Pain in right knee Qualifiers: Chronicity: acute Qualified Code(s): M25.561 - Pain in right knee Fall Qualifiers: Encounter type: initial encounter Qualified Code(s): W19.XXXA - Unspecified fall, initial encounter
[2023-05-04] MEDS: ONDANSETRON INJ 2 MG/ML 2 ML VIAL IV STA (01:23)
[2023-05-04] MEDS: SODIUM CHLORIDE 0.9% 500 ML IV SCH (01:23)
[2023-05-04] MEDS: MoRPHine SULFATE 4 MG/ML 1 ML CARP\\VIAL IV STA (01:23)
[2023-05-04] MEDS: ACETAMINOPHEN 1,000 MG/100 ML VIAL IV STA (01:24)
[2023-05-04 01:42] LABS: Basophils # (auto) 0.06 K/uL (0.00-0.20); Basophils % (auto) 0.5 %; Eosinophils # (auto) 0.24 K/uL (0.00-0.50); Hemoglobin 8.7 g/dl (12.0-16.0); Immature Granulocytes # (auto) 0.08 K/uL (0.01-0.20); Immature Granulocytes % (auto) 0.7 %; Lymphocytes # (auto) 2.63 K/uL (1.20-3.40); Lymphocytes % (auto) 21.7 %; Mean Corpuscular Hemoglobin 26.2 pg (25.0-34.0); Mean Corpuscular Volume 87.3 fL (80.0-100.0); Mean Platelet Volume 11.5 fL (9.4-12.4); Monocytes % (auto) 7.4 %; Neutrophils # (auto) 8.19 K/uL (1.40-6.50); Neutrophils % (auto) 67.7 %; Platelet Count 345 K/uL (130-400); RDW Coefficient of Variation 17.9 % (11.5-14.5); RDW Standard Deviation 57.2 fL (36.4-46.3); Red Blood Count 3.32 M/uL (4.20-5.40)
[2023-05-04 02:15] LABS: Albumin Globulin Ratio 0.7 (0.9-2); Albumin Level 2.8 gm/dl (3.4-5.0); Bilirubin,Total 0.3 mg/dl (0.2-1.0); Calcium 8.3 mg/dl (8.6-10.3); Creatinine Clr Calc Pharmacy 40.1 ml/min; Est GFR (African American) 28.2 ml/min; Est GFR (Non-African American) 24.3 ml/min; Globulin 4.2 gm/dl (2.5-4.0); Magnesium 1.5 mg/dl (1.7-2.4); Potassium 3.8 mmol/L (3.5-5.1); Thyroid Stimulating Hormone 3.393 uIu/ml (0.300-4.500); Troponin I High Sensitivity 15.8 pg/ml (0-14)
[2023-05-04] MEDS: MAGNESIUM SULFATE / D5W 1 GM/100 ML BAG IV STA (03:02)
[2023-05-04] MEDS: NovoLIN-R INSULIN PER UNIT CHARGE IV STA (03:02)
[2023-05-04] MEDS: SODIUM CHLORIDE 0.9% 500 ML IV ONE (03:16)
--- NOTE | 2023-05-04 04:35 | History & Physical Report ---
Date of Service May 04, 2023 Assessment & Plan (1) Ambulatory dysfunction: (2) Pleural effusion, right: (3) Abnormal chest x-ray: (4) Pain in right knee: (5) Diabetic foot ulcer: (6) Asthma: (7) Uncontrolled diabetes mellitus with hyperglycemia, with long-term current use of insulin: (8) Hypercholesteremia: (9) Hypertension: (10) Morbid obesity with BMI of 50.0-59.9, adult: (11) GERD (gastroesophageal reflux disease): Plan Ambulatory dysfunction- Primarily secondary to morbid obesity and accompanying orthopedic issues Patient does not appear to be suitable to be living at home by herself Will consult PT/OT She will need to have her diabetic foot ulcer addressed in the interim HFpEF/new right pleural effusion/hypertension Patient reports no symptomatology change compared to previous Continue current regimen I do not see any need for IV Bumex at this time. Could consider decreasing her amlodipine which is a 10 mg, with help reduce associated peripheral edema She could potentially have a thoracentesis performed of the right lung. Uncontrolled diabetes mellitus with hyperglycemia Continue glargine 25 units subcu twice daily Glucose 320 on admission similar to previous Placed on Accu-Cheks with NovoLog SSI Instead of having patient on high doses of short acting insulin premeals, time to be spent this admission with adjusting her long-acting insulin Hold dulaglutide All of the other medications will continue as before History of Present Illness Chief Complaint: The patient initially called EMS earlier this evening about 6 viral prior to arrival, due to slipping and falling on her urine that had leaked out of her diaper, and she was unable to get up. EMS offered to bring her to the emergency department, however, she preferred to stay home at that time. They at that time moved her to her couch. She later on, patient was unable to get up off of her couch due to generalized weakness and knee pain, and called EMS at that time, who then brought her to the emergency department for assessment. Patient reports that she feels well note that if she had not had difficulty getting up, she would not need to be in the emergency department. Primary Care Provider: Natali Langston DO The patient is a 62-year-old female with a past medical history including CKD stage IV, ambulatory dysfunction, morbid obesity, right diabetic foot ulcer, asthma, HFpEF, uncontrolled diabetes mellitus on long-term insulin, history of metabolic encephalopathy, hypertension, hypercholesterolemia, anxiety, hyp othyroidism, mixed hyperlipidemia and depression. The patient most recently been admitted to [facility] with a similar presentation from 04/10-04/12/2023. Due to her morbid obesity, and orthopedic issues, patient is at significant risk for complications living at home by herself. She has seen wound care for her right heel ulcer. Allergies Allergy/AdvReac Type Severity Reaction Status Date / Time amoxicillin Allergy Intermediate hives Verified 05/03/23 09:51 dextromethorphan Allergy Intermediate Hives Verified 05/03/23 09:51 [From NyQuil] doxylamine [From NyQuil] Allergy Intermediate Hives Verified 05/03/23 09:51 latex Allergy Intermediate RASH Verified 05/03/23 09:51 Sulfa (Sulfonamide Allergy Intermediate RASH Verified 05/03/23 09:51 Antibiotics) clarithromycin AdvReac Intermediate HEART RACES Verified 05/03/23 09:51 Umesh's multigrain bread Allergy Intermediate Hives Uncoded 05/03/23 09:51 Home Medications Medication Instructions Recorded Confirmed Type amitriptyline 50 mg tablet 100 mg PO HS 12/06/17 05/03/23 History fluticasone propionate 50 1 spray intranasal QAM 03/10/19 05/03/23 History mcg/actuation nasal spray,suspension levothyroxine 175 mcg tablet 175 mcg PO QAM 03/10/19 05/03/23 History (Synthroid) atorvastatin 80 mg tablet 80 mg PO HS 02/19/20 05/03/23 History loratadine 10 mg tablet 10 mg PO DAILY PRN Allergy Symptoms 01/19/21 05/03/23 History pen needle, diabetic 32 gauge x 06/20/21 05/03/23 History 5/32" (BD Ultra-Fine Siria Pen Needle) blood sugar diagnostic (FreeStyle 06/29/21 05/03/23 History Precision Perico Strips) flash glucose scanning reader 06/29/21 05/03/23 History (FreeStyle Davy 14 Day [place]) flash glucose sensor (FreeStyle 06/29/21 05/03/23 History Advy 14 Day Sensor kit) lancets 30 gauge (OneTouch Delica 06/29/21 05/03/23 History Lancets) cholecalciferol (vitamin D3) 50 50 mcg PO QAM 02/09/22 05/03/23 History mcg (2,000 unit) capsule dulaglutide 1.5 mg/0.5 mL 1.5 mg subcut WK 07/25/22 05/03/23 History subcutaneous pen injector (Trulicity) dapagliflozin propanediol 5 mg 5 mg PO QAM #90 tabs 10/19/22 05/03/23 Rx tablet (Farxiga) cyanocobalamin (vitamin B-12) 1,000 mcg PO DAILY #30 tabs 01/16/23 05/03/23 Rx 1,000 mcg tablet ferrous sulfate 325 mg (65 mg 325 mg PO DAILY #30 tabs 01/16/23 05/03/23 Rx iron) tablet folic acid 1 mg tablet 1,000 mcg PO DAILY #30 tabs 01/16/23 05/03/23 Rx albuterol sulfate 90 mcg/actuation 2 puff inhalation QID PRN wheezing 03/19/23 05/03/23 History aerosol inhaler ipratropium 20 mcg-albuterol 100 2 puff inhalation BID PRN 03/19/23 05/03/23 History mcg/actuation mist for inhalation Shortness Of Breath Or Wheezing (Combivent Respimat) omeprazole 20 mg capsule,delayed 20 mg PO DAILY 03/19/23 05/03/23 History release bumetanide 1 mg tablet 2 mg (2 x 1 mg) PO QAM #60 tabs 04/05/23 05/03/23 Rx acetaminophen 325 mg tablet 650 mg (2 x 325 mg) PO Q4H PRN 04/12/23 05/03/23 Rx pain #30 tabs amlodipine 10 mg tablet 10 mg PO DAILY #30 tabs 04/12/23 05/03/23 Rx famotidine 20 mg tablet 20 mg PO QAM #30 tabs 04/12/23 05/03/23 Rx insulin glargine 100 unit/mL 25 unit (0.25 mL) subcut BID #10 mL 04/12/23 05/03/23 Rx subcutaneous solution (Lantus U-100 Insulin) miconazole nitrate 2 % topical 1 applic EXT TID #85 grams 04/12/23 05/03/23 Rx powder (Desenex) insulin aspart U-100 100 unit/mL 1 sliding scale dose subcut 04/13/23 05/03/23 History subcutaneous solution (Novolog USEASDIRECTD U-100 Insulin aspart) insulin aspart U-100 100 unit/mL 35 unit subcut QPM 04/13/23 05/03/23 History subcutaneous solution (Novolog U-100 Insulin aspart) insulin aspart U-100 100 unit/mL 40 unit subcut QPM 04/13/23 05/03/23 History subcutaneous solution (Novolog U-100 Insulin aspart) insulin aspart U-100 100 unit/mL 45 unit subcut QPM 04/13/23 05/03/23 History subcutaneous solution (Novolog U-100 Insulin aspart) Past Med/Surg History Medical History CKD (chronic kidney disease) stage 4, GFR 15-29 ml/min Pseudomonas infection History of anesthesia reaction woke up during shoulder arthroscopy Peritonsillar abscess recent admission @ [facility] 01/29/22 for this--per pt has finished all antibiotics for this, no further issues at this time Chronic kidney disease, stage III (moderate) SOB (shortness of breath) RBBB Hypoxia Hyperglycemia due to type 2 diabetes mellitus Pneumonia due to COVID-19 virus COVID-19 hx of in 2019--per pt was hospitalized for COVID--states no symptoms currently Bifascicular block Foot drop LEFT Chronic back pain Osteoarthritis Hx of irritable bowel syndrome Cataract Bilateral Umbilical hernia Hiatal hernia PTSD (post-traumatic stress disorder) History of diverticulitis Tear of medial meniscus of right knee, current Morbid obesity with BMI of 50.0-59.9, adult Diabetes mellitus with hyperglycemia, with long-term current use of insulin Neck pain Narrowing of C6-C7 with bone spurs. CAUSES NUMBNESS IN LEFT ARM GERD (gastroesophageal reflux disease) Depression Anxiety Hyperlipidemia Hypertension Asthma COLD WEATHER FLARES UP/DENIES RECENT FLARE UP/ALBUTEROL ONLY PRN History of migraine Hyperosmolar hyponatremia Fibromyalgia Hypothyroidism Surgical History History of repair of right rotator cuff History of repair of left rotator cuff History of repair of ACL L S/P rotator cuff repair History of arthroscopy of right shoulder History of dilatation and curettage History of repair of ACL R History of esophagogastroduodenoscopy (EGD) History of colonoscopy History of D&C Family History Grandfather Diabetes Mother Myocardial infarction Heart disease Tobacco abuse Hx of CABG Family/Other Family history of diabetes mellitus Brother Family history of diabetes mellitus Father Aortic aneurysm Grandmother (Paternal) Cerebral aneurysm Stroke Other Family history of colon cancer in mother Social History Smoking Status: Never smoker Second Hand Exposure: Yes; Do You Dip or Chew Tobacco: No; Hx Alcohol Use: No Hx Substance Use: No Preferred Language: Polish Communication Ability: Effective Visual Impairment: No Limitations Title Manager Required: No Beliefs That Will Affect Care: None marital status: Current Living Situation: Alone Feels Safe at Home: Yes Assistive Devices: Walker Review of Systems Review of Systems: The patient denies chest pain, palpitations, shortness of breath, dyspnea on exertion, cough, sore throat, fevers, chills, sweats, nausea, vomiting, diarrhea , constipation, abdominal pain, pelvic pain, blood in urine or stool, dysuria, urinary frequency or urgency, lightheadedness, dizziness, headache, memory loss, loss of consciousness, abnormal bruising or bleeding, focal weakness, numbness or tingling in arms or legs, generalized arthralgias or myalgias, neck pain, or night sweats. The review of systems is otherwise negative other than for that already noted above, and at least 10 systems have been reviewed. Physical Exam Physical Exam: The patient is awake, alert and oriented 3, well developed and well nourished, normocephalic and atraumatic, lying in bed and in no acute distress. HEENT--PERRL, EOMI, mucous membranes and oropharynx normal. Neck--supple. No JVD. No bruits. Thyroid normal, trachea midline, no adenopathy. Heart--normal S1 and S2. No murmurs, rubs or gallops. Lungs--clear bilaterally, no respiratory distress, no accessory muscle use. Abdomen--normal bowel sounds and soft. Nontender. Nondistended. Morbidly obese Extremities--chronic lymphedema changes. Right heel wrapped with discharge noted in dressings Dermatologic--chronic lymphedema changes Neurologic--cranial nerves II through XII grossly intact. Rheumatologic--limited exam due to body habitus Psychiatric--normal affect. Results & Data Results & Data Vital Signs (Past 12 Hours) Vital Signs Temp Pulse Resp BP Pulse Ox O2 Del Method O2 Flow Rate 05/04/23 04:00 62 17 159/71 H 96 Nasal Cannula 1 05/04/23 03:31 62 16 142/68 H 91 Room Air 05/04/23 03:01 64 16 172/74 H 91 Room Air 05/04/23 02:00 69 15 125/82 95 Room Air 05/04/23 01:31 70 21 185/83 H 92 Room Air 05/04/23 01:20 92 Room Air 05/04/23 01:00 67 17 05/04/23 00:30 66 20 05/04/23 00:00 72 18 96 Room Air 05/03/23 23:53 68 19 98 Room Air 05/03/23 23:39 36.7 C 68 18 157/96 H 97 Room Air Laboratory Results Laboratory Results WBC 12.10 K/ul (4.8-10.8) H 05/04/23 01:15 RBC 3.32 M/uL (4.20-5.40) L 05/04/23 01:15 Hgb 8.7 g/dl (12.0-16.0) L 05/04/23 01:15 Hct 29.0 % (37.0-47.0) L 05/04/23 01:15 MCV 87.3 fL (80.0-100.0) 05/04/23 01:15 MCH 26.2 pg (25.0-34.0) 05/04/23 01:15 MCHC 30.0 g/dL (32.0-36.0) L 05/04/23 01:15 RDW Std Deviation 57.2 fL (36.4-46.3) H 05/04/23 01:15 RDW Coeff of Sylvia 17.9 % (11.5-14.5) H 05/04/23 01:15 Plt Count 345 K/uL (130-400) 05/04/23 01:15 MPV 11.5 fL (9.4-12.4) 05/04/23 01:15 Immature Gran % (Auto) 0.7 % 05/04/23 01:15 Neut % (Auto) 67.7 % 05/04/23 01:15 Lymph % (Auto) 21.7 % 05/04/23 01:15 [place] % (Auto) 7.4 % 05/04/23 01:15 Eos % (Auto) 2.0 % 05/04/23 01:15 Baso % (Auto) 0.5 % 05/04/23 01:15 Neut # (Auto) 8.19 K/uL (1.40-6.50) H 05/04/23 01:15 Lymph # (Auto) 2.63 K/uL (1.20-3.40) 05/04/23 01:15 [place] # (Auto) 0.90 K/uL (0.11-0.59) H 05/04/23 01:15 Eos # (Auto) 0.24 K/uL (0.00-0.50) 05/04/23 01:15 Baso # (Auto) 0.06 K/uL (0.00-0.20) 05/04/23 01:15 Immature Gran # (Auto) 0.08 K/uL (0.01-0.20) 05/04/23 01:15 Sodium 135 mmol/L (136-145) L 05/04/23 01:15 Potassium 3.8 mmol/L (3.5-5.1) 05/04/23 01:15 Chloride 103 mmol/L (98-107) 05/04/23 01:15 Carbon Dioxide 23 mmol/L (21-32) 05/04/23 01:15 Anion Gap 9 (3-11) 05/04/23 01:15 BUN 19 mg/dl (6-23) 05/04/23 01:15 Creatinine 2.12 mg/dl (0.6-1.2) H 05/04/23 01:15 Est Cr Clr Drug Dosing 40.1 ml/min 05/04/23 01:15 Est GFR ( Amer) 28.2 ml/min 05/04/23 01:15 Est GFR (Non-Af Amer) 24.3 ml/min 05/04/23 01:15 BUN/Creatinine Ratio 9.0 (10-20) L 05/04/23 01:15 Glucose 320 mg/dl (70-99(Fasting)) H* 05/04/23 01:15 POC Glucose 217 mg/dl (70-99) H 05/04/23 06:21 Calcium 8.3 mg/dl (8.6-10.3) L 05/04/23 01:15 Magnesium 1.5 mg/dl (1.7-2.4) L 05/04/23 01:15 Total Bilirubin 0.3 mg/dl (0.2-1.0) 05/04/23 01:15 AST 19 U/L (13-39) 05/04/23 01:15 ALT 10 U/L (7-52) 05/04/23 01:15 Alkaline Phosphatase 126 U/L (34-104) H 05/04/23 01:15 Total Creatine Kinase 66 U/L (26-192) 05/04/23 01:15 Troponin I High Sens 15.8 pg/ml (0-14) H 05/04/23 01:15 Total Protein 7.0 gm/dl (6.0-8.3) 05/04/23 01:15 Albumin 2.8 gm/dl (3.4-5.0) L 05/04/23 01:15 Globulin 4.2 gm/dl (2.5-4.0) H 05/04/23 01:15 Albumin/Globulin Ratio 0.7 (0.9-2) L 05/04/23 01:15 TSH 3.393 uIu/ml (0.300-4.500) 05/04/23 01:[address] 05/04/23 02:33 Exam(s): CT CHEST Without Contrast EXAM: CT Chest Without Intravenous Contrast CLINICAL HISTORY: Reason for exam: Abnormal chest xray. TECHNIQUE: Axial computed tomography images of the chest without intravenous contrast. CTDI is 25.86 mGy and DLP is 731.74 mGy-cm. Automated exposure control was utilized for the study. A dose lowering technique was utilized adhering to the principles of ALARA. COMPARISON: Chest x-ray from May 04, [address] from March 10, 2020. FINDINGS: Lungs: Vascular congestion with slight central increased interstitial densities in the lungs suggesting mild pulmonary edema. No mass. Pleural space: There is a small right pleural effusion layering posteriorly measuring 3 cm. No pneumothorax. Heart: Mild cardiomegaly with moderate coronary calcification and severe mitral calcification. No pericardial effusion. Bones/joints: Mild degenerative changes in the thoracic spine. No fracture or bone lesion is identified. No dislocation. Soft tissues: Unremarkable. Vasculature: Unremarkable. No thoracic aortic aneurysm. Lymph nodes: Unremarkable. No enlarged lymph nodes. IMPRESSION: 1. Vascular congestion with slight central increased interstitial densities in the lungs suggesting mild pulmonary edema. 2. There is a small right pleural effusion layering posteriorly measuring 3 cm. 3. Mild cardiomegaly with moderate coronary calcification and severe mitral calcification. No pericardial effusion. Electronically signed by: Rohith Max MD 05/04/23 04:36 AM Code Status & VTE Plan Code Status Full code VTE Prophylaxis Plan VTE Prophylaxis will be ordered: Yes PG Care Time/CCT Total # of Minutes Spent Total Time Spent with Patient: Total time spent is greater than 50% in coordination of care (as documented) at patient's floor/unit and/or counseling patient: Coding Level of Care Code 01344 INT INP/OBS CARE 3/75MIN Diagnoses Ambulatory dysfunction R26.2 Pleural effusion, right J90 Abnormal chest x-ray R93.89 Pain in right knee M25.561 Chronicity: acute Diabetic foot ulcer E11.621; L97.412 Diabetes mellitus type: type 2 Diabetic foot ulcer location: heel Laterality: right Non-pressure ulcer stage: with fat layer exposed Asthma J45.909 Uncontrolled diabetes mellitus with hyperglycemia, with long-term current use of insulin E11.65; Z79.4 Hypercholesteremia E78.00 Primary hypertension I10 Hypertension type: primary hypertension Morbid obesity with BMI of 50.0-59.9, adult E66.01; Z68.43 GERD (gastroesophageal reflux disease) K21.9 (4) Pain in right knee Chronicity: acute Qualified Code(s): M25.561 - Pain in right knee (5) Diabetic foot ulcer Diabetes mellitus type: type 2 Diabetic foot ulcer location: heel Laterality: right Non-pressure ulcer stage: with fat layer exposed Qualified Code(s): E11.621 - Type 2 diabetes mellitus with foot ulcer; L97.412 - Non- pressure chronic ulcer of right heel and midfoot with fat layer exposed (9) Hypertension Hypertension type: primary hypertension Qualified Code(s): I10 - Essential (primary) hypertension
[2023-05-04] MEDS ORDERED: ACETAMINOPHEN 325 MG TAB PO PRN (06:19)
[2023-05-04] MEDS ORDERED: ALBUTEROL HFA 8 GM INHALER INH PRN (06:19)
[2023-05-04] MEDS ORDERED: IPRATROPIUM BROMIDE/ALBUTEROL respimat INH INH PRN (06:19)
[2023-05-04] MEDS ORDERED: ONDANSETRON INJ 2 MG/ML 2 ML VIAL IV PRN (06:19)
--- NOTE | 2023-05-04 06:55 | XRay Report ---
XR chest 1V portable CLINICAL HISTORY: weakness COMPARISON STUDY: Chest radiograph March 19, 2023. FINDINGS: There is no pneumothorax. A small right pleural effusion is present. Associated right basil ar opacity. There is cardiomegaly with mild pulmonary edema. IMPRESSION: 1. Small right pleural effusion with associated right basilar opacity which could reflect atelectasis or consolidation. 2. Cardiomegaly with mild interstitial pulmonary edema. ACT 112: Negative or not required by law. Electronically signed by: Isra Kitchen M.D. 05/04/2023 6:54 AM
--- NOTE | 2023-05-04 06:56 | XRay Report ---
XR hip LT 2V w pelvis CLINICAL HISTORY: fall COMPARISON: CT of the abdomen and pelvis January 25, 2023. FINDINGS: The sacroiliac joints and symphysis pubis are intact. There is no acute fracture within th e pelvis or hips. Mild bilateral hip joint space narrowing with osteophytosis is present. IMPRESSION: No fractures within the pelvis or hips. ACT 112: Negative or not required by law. Electronically signed by: Isra Kitchen M.D. 05/04/2023 6:55 AM
--- NOTE | 2023-05-04 07:49 | XRay Report ---
XR knee RT 1 or 2V routine CLINICAL HISTORY: fall. Right knee pain. COMPARISON STUDY: Right knee 01/05/2019. FINDINGS: Degenerative changes again noted most pronounced within the medial compartment which demons trates severe cartilage space narrowing. No acute fracture or dislocation within the right knee. Eval uation for a knee effusion is near nondiagnostic due to the patient's body habitus. No large knee eff usion identified. No significant soft tissue swelling. IMPRESSION: No definite fracture or dislocation within the right knee. ACT 112: Negative or not required by law. Electronically signed by: Paco Contreras M.D. 05/04/2023 7:48 AM
[2023-05-04] MEDS: traMADol HCL 50 MG TABLET PO PRN (08:19)
[2023-05-04] MEDS: FLUTICASONE PROPIONATE NA SPR 16 GM BTL NAE SCH (09:27)
[2023-05-04] MEDS: BUMETANIDE 1 MG TAB PO SCH (09:27)
[2023-05-04] MEDS: FERROUS SULFATE 325 MG TAB PO SCH (09:27)
[2023-05-04] MEDS: amLODIPine BESYLATE 5 MG TAB PO SCH (09:27)
[2023-05-04] MEDS: FAMOTIDINE 20 MG TAB PO SCH (09:27)
[2023-05-04] MEDS: LEVOTHYROXINE SODIUM 175 MCG TABLET PO SCH (09:27)
[2023-05-04] MEDS: PANTOprazole 40 MG TAB PO SCH (09:27)
[2023-05-04] MEDS: CHOLECALCIFEROL 25 MCG (1000 UNITS) TAB PO SCH (09:27)
[2023-05-04] MEDS: FOLIC ACID 1 MG TAB PO SCH (09:27)
[2023-05-04] MEDS: CYANOCOBALAMIN (B-12) 500 MCG TABLET PO SCH (09:27)
[2023-05-04] MEDS: HEPARIN SOD 5,000 UNIT/0.5 ML VIAL SQ SCH (09:30)
[2023-05-04] MEDS: LANTUS PER UNIT CHARGE SQ SCH (09:36)
[2023-05-04] MEDS: INSULIN ASPART PER UNIT CHARGE SC STA (10:15)
[2023-05-04] MEDS ORDERED: ACETAMINOPHEN 1,000 MG/100 ML VIAL IV PRN (10:30)
[2023-05-04] MEDS ORDERED: GLUCOSE 10 TAB/TUBE PO PRN (10:54)
[2023-05-04] MEDS ORDERED: DEXTROSE 50% 50 ML SYRINGE IV PRN (10:54)
[2023-05-04] MEDS ORDERED: GLUCAGON FOR INJ 1 MG VIAL SQ PRN (10:54)
[2023-05-04] MEDS ORDERED: GLUCOSE 40% GEL 15 GM TUBE PO PRN (10:54)
[2023-05-04 10:57] LABS: Estimated Average Glucose 180 mg/dl; Hemoglobin A1C 7.9 % (4.5-5.6)
[2023-05-04] MEDS: ACETAMINOPHEN 1,000 MG/100 ML VIAL IV SCH (11:18)
--- NOTE | 2023-05-04 13:06 | Hospitalist Progress Note ---
Date of Service May 04, 2023 Assessment & Plan (1) Ambulatory dysfunction: (2) Pleural effusion, right: (3) Abnormal chest x-ray: (4) Pain in right knee: (5) Diabetic foot ulcer: (6) Asthma: (7) Uncontrolled diabetes mellitus with hyperglycemia, with long-term current use of insulin: (8) Hypercholesteremia: (9) Hypertension: (10) Morbid obesity with BMI of 50.0-59.9, adult: (11) GERD (gastroesophageal reflux disease): (12) Anemia: Plan Ms. Smith is a 62-year-old female who was admitted to our service after sustaining a mechanical fall at her home after she slipped in some urine. 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 -Ambulatory dysfunction may be secondary to morbid obesity, previous orthopedic issues -Hip and knee x-rays obtained in the emergency department negative for fractures. -PT and OT consulted -Case management following. Anticipate discharge to rehab center. -Continue pain management with IV Tylenol 1 g and tramadol as needed. If pain control suboptimal, may consider alternative modes for analgesia. HFpEF -Not currently in exacerbation - Diagnosed in 02/2023 -Appears hypervolemic on today's exam, however in yesterday's heart failure clinic visit, patient was noted to have lost weight. -Continue Bumex 2 mg daily -Low-sodium diet DM-II -Glucose on admission was 320 -Hemoglobin A1c in 03/2023 was 9%. Repeat level today is 7.9%. 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 Hunter. In agreement with the documented findings as noted in the resident documentation with any exceptions or additions as noted here. Ongoing RLE pain following fall without neurologic complaint. On examination, S1/S2 nl RRR no MCG. CTAB. Abd NT/ND BS+ve Fall in the setting of ambulatory dysfunction - PT/OT consult - pain management w/ APAP and tramadol, can escalate to oxycodone if needed HFpEF - continue daily bumetanide, monitor weights/i/o DMII, uncontrolled w/ nephropathy/CKDIV - glargine and aspart, adjust based on ISS need. A1c improved from previous. Avoid nephrotoxic medications. Else see resident documentation as noted. Subjective Ms. Smith is a 62-year-old female with past medical history relevant for DM-II, right diabetic foot ulcer, asthma, heart failure with preserved ejection fraction, hypertension, hypercholesterolemia, hypothyroidism, CKD type IV, ambulatory dysfunction, and morbid obesity who was admitted after sustaining a mechanical fall at her home after she slipped on some urine. Today she was evaluated at bedside and she was found to be awake alert and oriented in all spheres, relatively uncomfortable which she attributed to pain in her right leg related to her fall, but otherwise well. She refers feeling some shortness of breath during exertion, but not at rest. She denies having any chest pain, shortness of breath, fevers, chills, nausea/vomiting/diarrhea, malaise, or any other symptoms. Review of Systems Review of Systems: As per HPI. Physical Exam Physical Exam: GENERAL: Awake alert and oriented in all spheres, obese habitus, no acute distress HEAD: Atraumatic and normocephalic EYES: EOM intact THROAT: Normal to visual inspection CARDIO: Regular rate and rhythm, no rubs murmurs or cons appreciated RESPIRATORY: Fine crackles heard in bilateral lung bases, no wheezing, normal respiratory effort, no respiratory distress GI: Soft, nontender EXTREMITIES: Swelling in bilateral lower extremities, no tenderness to palpation of bilateral calves, bandage covering ulcer in the right foot which was clean, no erythema/warmth/tenderness bilateral lower extremities, no visible deformities noted Results & Data Results & Data Vital Signs (Past 12 Hours) Vital Signs Temp Pulse Pulse Resp BP BP Pulse Ox 05/04/23 07:12 36.4 C L 60 16 188/75 H 100 05/04/23 06:20 05/04/23 06:20 36.4 C L 16 177/80 H 100 05/04/23 05:00 61 15 130/69 96 05/04/23 04:30 65 19 176/72 H 98 05/04/23 04:00 62 17 159/71 H 96 05/04/23 03:31 62 16 142/68 H 91 05/04/23 03:01 64 16 172/74 H 91 05/04/23 02:00 69 15 125/82 95 05/04/23 01:31 70 21 185/83 H 92 05/04/23 01:20 92 O2 Del Method O2 Flow Rate 05/04/23 07:12 Room Air 05/04/23 06:20 Room Air 05/04/23 06:20 Nasal Cannula 2 05/04/23 05:00 Nasal Cannula 1 05/04/23 04:30 Room Air 05/04/23 04:00 Nasal Cannula 1 05/04/23 03:31 Room Air 05/04/23 03:01 Room Air 05/04/23 02:00 Room Air 05/04/23 01:31 Room Air 05/04/23 01:20 Room Air (4) Pain in right knee Chronicity: acute Qualified Code(s): M25.561 - Pain in right knee (5) Diabetic foot ulcer Diabetes mellitus type: type 2 Diabetic foot ulcer location: heel Laterality: right Non-pressure ulcer stage: with fat layer exposed Qualified Code(s): E11.621 - Type 2 diabetes mellitus with foot ulcer; L97.412 - Non- pressure chronic ulcer of right heel and midfoot with fat layer exposed (9) Hypertension Hypertension type: primary hypertension Qualified Code(s): I10 - Essential (primary) hypertension (12) Anemia Anemia type: unspecified type Qualified Code(s): D64.9 - Anemia, unspecified
[2023-05-04 16:03] LABS: Appearance Urine Cloudy (Clear); Bacteria Urine Automated 4+ (Negative); Bilirubin Urine Negative (Negative); Blood Urine 2+ (Negative); Color Urine Yellow; Epithelial Cell Urine Auto >30 /lpf (0-5); Glucose Urine UA 3+ (Negative); Ketones Urine Negative (Negative); Leukocyte Esterase Urine Negative (Negative); Nitrite Urine Negative (Negative); Protein Urine 3+ (Negative); Specific Gravity Urine 1.016 (1.000-1.030); Urobilinogen Urine Negative (Negative); pH Urine 5.5 (4.5-7.5)
[2023-05-04] MEDS: INSULIN ASPART PER UNIT CHARGE SC SCH (18:27)
[2023-05-04] MEDS: AMITRIPTYLINE HCL 100 MG TAB PO SCH (19:43)
[2023-05-04] MEDS: ATORVASTATIN 40 MG TAB PO SCH (19:44)
[2023-05-05 06:29] LABS: Basophils # (auto) 0.04 K/uL (0.00-0.20); Basophils % (auto) 0.4 %; Eosinophils # (auto) 0.27 K/uL (0.00-0.50); Eosinophils % (auto) 2.8 %; Hematocrit (blood only) 24.3 % (37.0-47.0); Hemoglobin 7.4 g/dl (12.0-16.0); Immature Granulocytes # (auto) 0.05 K/uL (0.01-0.20); Immature Granulocytes % (auto) 0.5 %; Lymphocytes # (auto) 3.59 K/uL (1.20-3.40); Lymphocytes % (auto) 37.3 %; Mean Corpuscular Hemoglobin 26.4 pg (25.0-34.0); Mean Corpuscular Hgb Conc 30.5 g/dL (32.0-36.0); Mean Corpuscular Volume 86.8 fL (80.0-100.0); Mean Platelet Volume 11.7 fL (9.4-12.4); Monocytes % (auto) 7.3 %; Neutrophils # (auto) 4.98 K/uL (1.40-6.50); Neutrophils % (auto) 51.7 %; Platelet Count 317 K/uL (130-400); RDW Coefficient of Variation 17.7 % (11.5-14.5); RDW Standard Deviation 57.3 fL (36.4-46.3); White Blood Count 9.63 K/ul (4.8-10.8)
[2023-05-05 06:39] LABS: BUN Creatinine Ratio 9.3 (10-20); Calcium 7.8 mg/dl (8.6-10.3); Creatinine Clr Calc Pharmacy 28.6 ml/min; Est GFR (African American) 22.3 ml/min; Est GFR (Non-African American) 19.3 ml/min; Magnesium 1.5 mg/dl (1.7-2.4); Potassium 3.9 mmol/L (3.5-5.1)
[2023-05-05 07:09] LABS: Polychromasia 1+
[2023-05-05] MEDS: MAGNESIUM OXIDE 400 MG TAB PO SCH (08:35)
--- NOTE | 2023-05-05 09:00 | Hospitalist Progress Note ---
Date of Service May 05, 2023 Assessment & Plan (1) Ambulatory dysfunction: (2) Pleural effusion, right: (3) Abnormal chest x-ray: (4) Pain in right knee: (5) Diabetic foot ulcer: (6) Asthma: (7) Uncontrolled diabetes mellitus with hyperglycemia, with long-term current use of insulin: (8) Hypercholesteremia: (9) Hypertension: (10) Morbid obesity with BMI of 50.0-59.9, adult: (11) GERD (gastroesophageal reflux disease): (12) Anemia: Plan Ms. Smith is a 62-year-old female who was admitted to our service after sustaining a mechanical fall at her home after she slipped in some urine. 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 -Ambulatory dysfunction may be secondary to morbid obesity, previous orthopedic issues -Hip and knee x-rays obtained in the emergency department negative for fractures. -Right ankle x-ray negative for fractures -Continue pain management with IV Tylenol 1 g and tramadol as needed. If pain control suboptimal, may consider alternative modes for analgesia. -PT and OT consulted and recommended inpatient rehab -Case management following. Anticipate discharge to rehab center. Acute on Chronic Kidney Disease -Patient with known CKD type IV. Follows with nephrology as an outpatient. -Creatinine increased from 2.12 yesterday to 2.57 today. Recent CK done after patient's fall within normal limits. -Suspect this is due to dehydration given low oral water intake plus home Bumex use due to history of heart failure. -Will order IVF -Follow-up with morning labs HFpEF -Not currently in exacerbation - Diagnosed in 02/2023 -Appears hypervolemic on today's exam, however in yesterday's heart failure clinic visit, patient was noted to have lost weight. -Continue Bumex 2 mg daily -Low-sodium diet DM-II -Glucose on admission was 320 -Hemoglobin A1c in 03/2023 was 9%. Repeat level today is 7.9%. - Continue glargine 25 units subQ twice daily -Placed on Accu-Cheks with NovoLog SSI Chronic anemia -Chronic issue for which patient has received iron transfusion and is on home iron supplements -May be playing a role in patient's shortness of breath with ambulation -Today's hemoglobin decreased to 7.4. Patient has remained asymptomatic. Will repeat H&H in the afternoon to make sure that this is a true value. -Will order Venofer. Hypothyroidism -Continue home Synthroid Asthma -Continue home inhalers Dispo: PT/OT consulted; eval need for rehab Diet: Low sodium VTE ppx: Heparin Admission and Anticipated Discharge Date Admission Date: May 04, 2023 Supervising Physician Co-Signing Physician Notes Attending attestation Pt seen and examined in concert with Dr. Hunter. In agreement with the documented findings as noted in the resident documentation with any exceptions or additions as noted here. Ongoing RLE pain following fall without neurologic complaint, now with ankle pain as primary site of irritation. On examination, S1/S2 nl RRR no MCG. CTAB. Abd NT/ND BS+ve Fall in the setting of ambulatory dysfunction - PT/OT consult - pain management w/ APAP and tramadol, can escalate to oxycodone if needed. XR R ankle. PERLITA with CKD IV - elevation in Cr today to 2.57 - recheck in PM and if consistent, reduce diuresis for HFpEF Anemia, microcytic - repeat CBC in PM for stability and transfuse at < 8 or with symptoms. Consider FOBT. HFpEF - continue daily bumetanide, monitor weights/i/o DMII, uncontrolled w/ nephropathy/CKDIV - glargine and aspart, adjust based on ISS need. A1c improved from previous. Avoid nephrotoxic medications. Else see resident documentation as noted. Subjective Ms. Smith is a 62-year-old female with past medical history relevant for DM-II, right diabetic foot ulcer, asthma, heart failure with preserved ejection fraction, hypertension, hypercholesterolemia, hypothyroidism, CKD type IV, ambulatory dysfunction, and morbid obesity who was admitted after sustaining a mechanical fall at her home after she slipped on some urine. Today she was evaluated at bedside and she was found to be awake alert and oriented in all spheres, relatively uncomfortable which she attributed to pain in her right leg related to her fall, but otherwise well. Later on when return to evaluate patient, patient was found to be sitting on bedside chair and eating her lunch. She refers persistent right lower extremity pain and now having noticed right ankle pain. Notes also some mild hip pain. Denies chest pain, shortness of breath, fevers, chills, or any other systemic symptoms. Review of Systems Review of Systems: As per HPI. Physical Exam Physical Exam: GENERAL: Awake alert and oriented in all spheres, obese habitus, no acute distress HEAD: Atraumatic and normocephalic EYES: EOM intact THROAT: Normal to visual inspection CARDIO: Regular rate and rhythm, no rubs murmurs or cons appreciated RESPIRATORY: no wheezing, normal respiratory effort, no respiratory distress GI: Soft, nontender EXTREMITIES: Swelling in bilateral lower extremities, no tenderness to palpation of bilateral calves, bandage covering ulcer in the right foot which was clean, no erythema/warmth/tenderness bilateral lower extremities, no visible deformities noted, tenderness to palpation of right ankle Results & Data Results & Data Vital Signs (Past 12 Hours) Vital Signs Temp Pulse Resp BP Pulse Ox O2 Del Method 05/05/23 07:50 36.7 C 68 18 149/68 H 95 Room Air (4) Pain in right knee Chronicity: acute Qualified Code(s): M25.561 - Pain in right knee (5) Diabetic foot ulcer Diabetes mellitus type: type 2 Diabetic foot ulcer location: heel Laterality: right Non-pressure ulcer stage: with fat layer exposed Qualified Code(s): E11.621 - Type 2 diabetes mellitus with foot ulcer; L97.412 - Non- pressure chronic ulcer of right heel and midfoot with fat layer exposed (9) Hypertension Hypertension type: primary hypertension Qualified Code(s): I10 - Essential (primary) hypertension (12) Anemia Anemia type: unspecified type Qualified Code(s): D64.9 - Anemia, unspecified
[2023-05-05] MEDS: IRON SUCROSE 200 MG in 0.9 % SODIUM CHLORIDE 100 ML IV ONE (10:18)
[2023-05-05] MEDS ORDERED: MICONAZOLE NITRATE POWDER 85 GM EXT PRN (12:34)
--- NOTE | 2023-05-05 13:11 | XRay Report ---
RIGHT ANKLE 3 VIEWS CLINICAL HISTORY: Right leg pain and swelling. Fall. FINDINGS: 3 views of the right ankle are correlated with radiograph of the right tibia and fibula jenny ed 01/27/2016. The skeletal structures are osteopenic. No fracture is seen. The ankle mortise is inta ct. There is a plantar heel spur. Diffuse soft tissue edema is seen throughout the visualized right l ower extremity. There is advanced atherosclerotic calcification of the regional arteries. IMPRESSION: Soft tissue edema with no acute bony abnormality identified. Electronically signed by: Chilango Vora M.D. 05/05/2023 1:10 PM
[2023-05-05] MEDS: SODIUM CHLORIDE 0.9% 1,000 ML IV SCH (13:32)
[2023-05-05 16:42] LABS: Basophils # (auto) 0.04 K/uL (0.00-0.20); Basophils % (auto) 0.3 %; Eosinophils # (auto) 0.27 K/uL (0.00-0.50); Eosinophils % (auto) 2.1 %; Hematocrit (blood only) 32.2 % (37.0-47.0); Hemoglobin 9.4 g/dl (12.0-16.0); Immature Granulocytes # (auto) 0.08 K/uL (0.01-0.20); Immature Granulocytes % (auto) 0.6 %; Lymphocytes # (auto) 2.86 K/uL (1.20-3.40); Lymphocytes % (auto) 22.7 %; Mean Corpuscular Hgb Conc 29.2 g/dL (32.0-36.0); Mean Corpuscular Volume 89.2 fL (80.0-100.0); Mean Platelet Volume 11.5 fL (9.4-12.4); Monocytes % (auto) 6.3 %; Neutrophils # (auto) 8.57 K/uL (1.40-6.50); Platelet Count 341 K/uL (130-400); RDW Coefficient of Variation 17.5 % (11.5-14.5); Red Blood Count 3.61 M/uL (4.20-5.40); White Blood Count 12.62 K/ul (4.8-10.8)
[2023-05-05 17:02] LABS: Calcium 8.1 mg/dl (8.6-10.3); Potassium 4.3 mmol/L (3.5-5.1)
[2023-05-05 17:08] LABS: Creatinine Clr Calc Pharmacy 31.5 ml/min; Est GFR (African American) 22.1 ml/min; Est GFR (Non-African American) 19.1 ml/min
[2023-05-06 07:33] LABS: Basophils # (auto) 0.03 K/uL (0.00-0.20); Basophils % (auto) 0.3 %; Eosinophils # (auto) 0.31 K/uL (0.00-0.50); Eosinophils % (auto) 2.9 %; Hematocrit (blood only) 26.1 % (37.0-47.0); Hemoglobin 7.6 g/dl (12.0-16.0); Immature Granulocytes # (auto) 0.06 K/uL (0.01-0.20); Immature Granulocytes % (auto) 0.6 %; Lymphocytes # (auto) 3.27 K/uL (1.20-3.40); Lymphocytes % (auto) 30.1 %; Mean Corpuscular Hemoglobin 25.9 pg (25.0-34.0); Mean Corpuscular Hgb Conc 29.1 g/dL (32.0-36.0); Mean Corpuscular Volume 88.8 fL (80.0-100.0); Mean Platelet Volume 11.7 fL (9.4-12.4); Monocytes # (auto) 0.77 K/uL (0.11-0.59); Monocytes % (auto) 7.1 %; Neutrophils # (auto) 6.42 K/uL (1.40-6.50); Platelet Count 331 K/uL (130-400); RDW Coefficient of Variation 17.7 % (11.5-14.5); RDW Standard Deviation 57.9 fL (36.4-46.3); Red Blood Count 2.94 M/uL (4.20-5.40); White Blood Count 10.86 K/ul (4.8-10.8)
[2023-05-06 07:48] LABS: Albumin Globulin Ratio 0.7 (0.9-2); Albumin Level 2.5 gm/dl (3.4-5.0); BUN Creatinine Ratio 11.3 (10-20); Bilirubin,Total 0.2 mg/dl (0.2-1.0); Calcium 7.9 mg/dl (8.6-10.3); Creatinine Clr Calc Pharmacy 33.5 ml/min; Est GFR (African American) 24.1 ml/min; Est GFR (Non-African American) 20.8 ml/min; Globulin 3.7 gm/dl (2.5-4.0); Magnesium 1.5 mg/dl (1.7-2.4); Potassium 3.9 mmol/L (3.5-5.1); Total Protein 6.2 gm/dl (6.0-8.3)
[2023-05-06 07:52] LABS: Polychromasia 1+
[2023-05-06] MEDS: CARBOHYDRATES FOR HYPOGLYCEMIA PO PRN (08:00)
--- NOTE | 2023-05-06 10:01 | Hospitalist Progress Note ---
Date of Service May 06, 2023 Assessment & Plan (1) Ambulatory dysfunction: (2) Pleural effusion, right: (3) Abnormal chest x-ray: (4) Pain in right knee: (5) Diabetic foot ulcer: (6) Asthma: (7) Uncontrolled diabetes mellitus with hyperglycemia, with long-term current use of insulin: (8) Hypercholesteremia: (9) Hypertension: (10) Morbid obesity with BMI of 50.0-59.9, adult: (11) GERD (gastroesophageal reflux disease): (12) Anemia: Plan Ms. Smith is a 62-year-old female who was admitted to our service after sustaining a mechanical fall at her home after she slipped in some urine. Acute on Chronic Kidney Disease -Patient with known CKD type IV. Follows with nephrology as an outpatient. -Creatinine increased from 2.12 to 2.57 yesterday. -Suspect this is due to dehydration given low oral water intake plus home Bumex use due to history of heart failure. -Creatinine with slight improvement in a.m. labs (2.40) after IVF. Will discontinue IVF and encourage oral intake of water. -Given increasing creatinine was likely related to prerenal PERLITA, will also put patient's Bumex on hold as she was likely hypovolemic (as evidenced by improvement in creatinine with fluid administration). -Follow-up with morning labs Chronic anemia -Chronic issue for which patient has received iron transfusion and is on home iron supplements -May be playing a role in patient's shortness of breath with ambulation -Today's hemoglobin 7.6. Patient has remained asymptomatic. Per chart review, patient seems that her hemoglobin has remained more or less below 8 intermittently throughout the last year. -Will order Venofer. -Will monitor a.m. labs -Threshold for transfusion is hemoglobin below 7 or hemoglobin approximating 7 with patient experiencing symptoms of anemia. DM-II -Glucose on admission was 320 -Hemoglobin A1c in 03/2023 was 9%. Repeat level today is 7.9%. - Continue glargine 25 units subQ twice daily -Placed on Accu-Cheks with NovoLog SSI -Due to episode of hypoglycemia today, will give am long acting insulin at half dose. Will continue to monitor blood sugars. 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 -Ambulatory dysfunction may be secondary to morbid obesity, previous orthopedic issues -Hip and knee x-rays obtained in the emergency department negative for fractures. -Right ankle x-ray negative for fractures -Continue pain management with IV Tylenol 1 g and tramadol as needed. If pain control suboptimal, may consider alternative modes for analgesia such as oxycodone. -PT and OT consulted and recommended inpatient rehab -Case management following. Anticipate discharge to rehab center. HFpEF -Not currently in exacerbation - Diagnosed in 02/2023 -Low-sodium diet -Bumex held due to rising creatinine -Will continue daily weights and monitoring fluid status. Hypothyroidism -Continue home Synthroid Asthma -Continue home inhalers Dispo: PT/OT consulted; eval need for rehab Diet: Low sodium VTE ppx: Heparin Admission and Anticipated Discharge Date Admission Date: May 04, 2023 Supervising Physician Co-Signing Physician Notes Attending attestation Pt seen and examined in concert with Dr. Hunter. In agreement with the documented findings as noted in the resident documentation with any exceptions or additions as noted here. Ongoing RLE pain following fall without neurologic complaint, well controlled presently. Happy Birthday wishes. On examination, S1/S2 nl RRR no MCG. CTAB. Abd NT/ND BS+ve PERLITA with CKD IV - improved to 2.4 today - continue daily BMP. Gave fluid repletion, encourage reasonable POI. Holding bumetanide for now. Fall in the setting of ambulatory dysfunction - PT/OT consult - pain management w/ APAP and tramadol, can escalate to oxycodone if needed. Anemia, microcytic - trend AM CBC - baseline around 8 chronically, consider FOBT with drop, transfuse at 7. HFpEF - continue daily bumetanide, monitor weights/i/o DMII, uncontrolled w/ nephropathy/CKDIV - glargine and aspart, adjust based on ISS need. A1c improved from previous. Avoid nephrotoxic medications. Else see resident documentation as noted. Subjective Ms. Smith is a 62-year-old female with past medical history relevant for DM-II, right diabetic foot ulcer, asthma, heart failure with preserved ejection fraction, hypertension, hypercholesterolemia, hypothyroidism, CKD type IV, ambulatory dysfunction, and morbid obesity who was admitted after sustaining a mechanical fall at her home after she slipped on some urine. Today she was evaluated at bedside and she was found to be awake alert and oriented in all spheres, and in no acute distress. Nursing notified earlier this morning the patient was hypoglycemic with blood sugar at 58, which was corrected to 70 after hypoglycemic protocol was implemented. Patient has remained asymptomatic all throughout this time and when evaluated at bedside patient denying any symptoms of dizziness, weakness, diaphoresis, lightheadedness, palpitations, or any other symptoms. Patient refers improvement with regards to her right lower extremity pain and has been able to walk to and from the bathroom with some discomfort. Denies chest pain, shortness of breath, fevers, chills, or any other systemic symptoms. Review of Systems Review of Systems: As per HPI. Physical Exam Physical Exam: GENERAL: Awake alert and oriented in all spheres, obese habitus, no acute distress HEAD: Atraumatic and normocephalic EYES: EOM intact THROAT: Normal to visual inspection CARDIO: Regular rate and rhythm, no rubs murmurs or cons appreciated RESPIRATORY: no wheezing, normal respiratory effort, no respiratory distress EXTREMITIES: Swelling in bilateral lower extremities, no tenderness to palpation of bilateral calves, bandage covering ulcer in the right foot which was clean, no erythema/warmth/tenderness bilateral lower extremities, no visible deformities noted Results & Data Results & Data Vital Signs (Past 12 Hours) Vital Signs Temp Pulse Resp BP Pulse Ox O2 Del Method 05/06/23 08:11 36.3 C L 77 18 140/65 99 Room Air 05/05/23 22:32 Room Air (4) Pain in right knee Chronicity: acute Qualified Code(s): M25.561 - Pain in right knee (5) Diabetic foot ulcer Diabetes mellitus type: type 2 Diabetic foot ulcer location: heel Laterality: right Non-pressure ulcer stage: with fat layer exposed Qualified Code(s): E11.621 - Type 2 diabetes mellitus with foot ulcer; L97.412 - Non- pressure chronic ulcer of right heel and midfoot with fat layer exposed (9) Hypertension Hypertension type: primary hypertension Qualified Code(s): I10 - Essential (primary) hypertension (12) Anemia Anemia type: unspecified type Qualified Code(s): D64.9 - Anemia, unspecified
[2023-05-06] MEDS: POLYETHYLENE (MIRALAX) 17 GM PACK PO SCH (12:41)
--- NOTE | 2023-05-06 13:25 | Electrocardiogram Report ---
Test Reason : Blood Pressure : / mmHG Vent. Rate : 066 BPM Atrial Rate : 000 BPM P-R Int : 000 ms QRS Dur : 136 ms QT Int : 456 ms P-R-T Axes : 000 -61 054 degrees QTc Int : 478 ms Sinus rhythm vs junctional rhythm Left axis deviation Right bundle branch block Minimal voltage criteria for LVH, may be normal variant ( R in aVL ) Inferior infarct , age undetermined Poor R wave progression, consider anterior MD vs. lead placement vs. LVH Abnormal ECG When compared with ECG of 19-MAR-2023 05:49, No significant change Confirmed by Tom Lopes ([id number]) on 05/06/2023 1:25:23 PM Referred By: REFERRED SELF Confirmed By:Tom Lopes
[2023-05-07 09:22] LABS: Basophils # (auto) 0.05 K/uL (0.00-0.20); Basophils % (auto) 0.4 %; Eosinophils # (auto) 0.26 K/uL (0.00-0.50); Eosinophils % (auto) 2.3 %; Hematocrit (blood only) 29.8 % (37.0-47.0); Hemoglobin 8.8 g/dl (12.0-16.0); Immature Granulocytes # (auto) 0.11 K/uL (0.01-0.20); Lymphocytes # (auto) 2.42 K/uL (1.20-3.40); Lymphocytes % (auto) 21.3 %; Mean Corpuscular Hemoglobin 26.2 pg (25.0-34.0); Mean Corpuscular Hgb Conc 29.5 g/dL (32.0-36.0); Mean Corpuscular Volume 88.7 fL (80.0-100.0); Mean Platelet Volume 11.3 fL (9.4-12.4); Monocytes # (auto) 0.63 K/uL (0.11-0.59); Monocytes % (auto) 5.6 %; Neutrophils # (auto) 7.88 K/uL (1.40-6.50); Neutrophils % (auto) 69.4 %; Platelet Count 375 K/uL (130-400); RDW Coefficient of Variation 17.7 % (11.5-14.5); RDW Standard Deviation 57.3 fL (36.4-46.3); Red Blood Count 3.36 M/uL (4.20-5.40); White Blood Count 11.35 K/ul (4.8-10.8)
[2023-05-07 09:36] LABS: BUN Creatinine Ratio 10.4 (10-20); Calcium 8.4 mg/dl (8.6-10.3); Creatinine Clr Calc Pharmacy 29.8 ml/min; Est GFR (African American) 20.2 ml/min; Est GFR (Non-African American) 17.4 ml/min; Magnesium 1.5 mg/dl (1.7-2.4); Potassium 4.3 mmol/L (3.5-5.1)
--- NOTE | 2023-05-07 10:25 | Hospitalist Progress Note ---
Date of Service May 07, 2023 Assessment & Plan (1) Ambulatory dysfunction: (2) Pleural effusion, right: (3) Abnormal chest x-ray: (4) Pain in right knee: (5) Diabetic foot ulcer: (6) Asthma: (7) Uncontrolled diabetes mellitus with hyperglycemia, with long-term current use of insulin: (8) Hypercholesteremia: (9) Hypertension: (10) Morbid obesity with BMI of 50.0-59.9, adult: (11) GERD (gastroesophageal reflux disease): (12) Anemia: Plan Ms. Smith is a 62-year-old female who was admitted to our service after sustaining a mechanical fall at her home after she slipped in some urine. Acute on Chronic Kidney Disease -Patient with known CKD type IV. Follows with nephrology as an outpatient. -Creatinine increased to 2.78 from 2.40 yesterday. -Suspect this is due to dehydration given low oral water intake plus home Bumex use due to history of heart failure. -Suspect this is remnants of dehydration consequent of Bumex. Will continue to encourage oral intake of water and reevaluate with a.m. labs. Chronic anemia -Chronic issue for which patient has received iron transfusion and is on home iron supplements -Nursing reporting some small blood clots in toilet bowl this morning. - No other source of bleeding. -Today's hemoglobin improved at 8.8 from 7.6 yesterday. -Will order Venofer. -Will monitor a.m. labs -Threshold for transfusion is hemoglobin below 7 or hemoglobin approximating 7 with patient experiencing symptoms of anemia. DM-II -Glucose on admission was 320 -Hemoglobin A1c in 03/2023 was 9%. Repeat level today is 7.9%. - Continue glargine 25 units subQ twice daily -Placed on Accu-Cheks with NovoLog SSI -Due to episode of hypoglycemia today, will give am long acting insulin at half dose. Will continue to monitor blood sugars. 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 -Ambulatory dysfunction may be secondary to morbid obesity, previous orthopedic issues -Hip and knee x-rays obtained in the emergency department negative for fractures. -Right ankle x-ray negative for fractures -Continue pain management with IV Tylenol 1 g and tramadol as needed. If pain control suboptimal, may consider alternative modes for analgesia such as oxycodone. -PT and OT consulted and recommended inpatient rehab -Anticipate discharge to rehab center. HFpEF -Not currently in exacerbation - Diagnosed in 02/2023 -Low-sodium diet -Bumex held due to rising creatinine -Will continue daily weights and monitoring fluid status. Hypothyroidism -Continue home Synthroid Asthma -Continue home inhalers Dispo: PT/OT consulted; anticipate need to rehab center Diet: Low sodium VTE ppx: Heparin Admission and Anticipated Discharge Date Admission Date: May 04, 2023 Supervising Physician Co-Signing Physician Notes I personally examined the patient and verified all parson points of history and exam, discussed case, and agree with decision making with Dr Hunter knee pain. hurts more with extension. vitals noted nad heent nc at mmm breathing unlabored no accessory muscles good effort skin no rashes no pallor or icterus neuro no focal deficits. no knee crepitis, does hurt with extension - difficult exam but no effusions no bruising PERLITA with CKD IV - related to fluid balance. continue to follow Fall in the setting of ambulatory dysfunction - PT/OT consult - rehab / SNF for rehab Anemia, microcytic - follow periodically. replacing Fe HFpEF - holding bumex DMII, glucoses reasonable control. continue current care. A1c 7.9% otherwise as above Subjective Ms. Smith is a 62-year-old female with past medical history relevant for DM-II, right diabetic foot ulcer, asthma, heart failure with preserved ejection fraction, hypertension, hypercholesterolemia, hypothyroidism, CKD type IV, ambulatory dysfunction, and morbid obesity who was admitted after sustaining a mechanical fall at her home after she slipped on some urine. Today she was evaluated at bedside and she was found to be awake alert and oriented in all spheres, and in no acute distress. Patient referring improvement with regard to her hip and her right lower extremity pain, and has been able to ambulate to and from the bathroom without any resulting lightheadedness or dizziness. On reevaluation, patient states that she is feeling pain with bilateral lower extremity extension, with her pain starting at her knee and then radiating up her thigh and into her hip and more marked on the right side. She felt exacerbation of this. After recent PT and OT exercises. Denies chest pain, shortness of breath, fevers, chills, or any other systemic symptoms. Review of Systems Review of Systems: As per HPI. Physical Exam Physical Exam: GENERAL: Awake alert and oriented in all spheres, obese habitus, no acute distress HEAD: Atraumatic and normocephalic EYES: EOM intact THROAT: Normal to visual inspection CARDIO: Regular rate and rhythm, no rubs murmurs or cons appreciated RESPIRATORY: Clear to auscultation bilaterally, no wheezing, normal respiratory effort, no respiratory distress EXTREMITIES: Swelling in bilateral lower extremities, no tenderness to palpation of bilateral calves, bandage covering ulcer in the right foot which was clean, no erythema/warmth/tenderness bilateral lower extremities, no visible deformities noted Results & Data Results & Data Vital Signs (Past 12 Hours) Vital Signs Temp Pulse Resp BP Pulse Ox O2 Del Method 05/07/23 07:10 36.9 C 90 18 146/77 H 96 Room Air (4) Pain in right knee Chronicity: acute Qualified Code(s): M25.561 - Pain in right knee (5) Diabetic foot ulcer Diabetes mellitus type: type 2 Diabetic foot ulcer location: heel L aterality: right Non-pressure ulcer stage: with fat layer exposed Qualified Code(s): E11.621 - Type 2 diabetes mellitus with foot ulcer; L97.412 - Non- pressure chronic ulcer of right heel and midfoot with fat layer exposed (9) Hypertension Hypertension type: primary hypertension Qualified Code(s): I10 - Essential (primary) hypertension (12) Anemia Anemia type: unspecified type Qualified Code(s): D64.9 - Anemia, unspecified
[2023-05-07] MEDS: IRON SUCROSE 200 MG in 0.9 % SODIUM CHLORIDE 100 ML IV ONE (11:12)
[2023-05-07] MEDS: MAGNESIUM SULFATE / D5W 1 GM/100 ML BAG IV SCH (12:23)
[2023-05-07 16:48] LABS: Appearance Urine Cloudy (Clear); Bacteria Urine Automated 4+ (Negative); Bilirubin Urine Negative (Negative); Blood Urine 3+ (Negative); Color Urine Orange; Epithelial Cell Urine Auto >30 /lpf (0-5); Glucose Urine UA 3+ (Negative); Ketones Urine Trace (Negative); Leukocyte Esterase Urine 1+ (Negative); Nitrite Urine Negative (Negative); Protein Urine 4+ (Negative); RBC Urine Automated 0-4 /hpf (0-4); Specific Gravity Urine 1.024 (1.000-1.030); Urobilinogen Urine Negative (Negative); WBC Urine Automated >30 /hpf (0-5); pH Urine 5.5 (4.5-7.5)
--- NOTE | 2023-05-07 19:08 | Billing Data ---
Date of Service May 07, 2023 Coding Level of Care Code 62148 SUB INP/OBS CARE
[2023-05-08 08:20] LABS: Basophils # (auto) 0.04 K/uL (0.00-0.20); Basophils % (auto) 0.3 %; Eosinophils % (auto) 2.4 %; Hematocrit (blood only) 28.3 % (37.0-47.0); Hemoglobin 8.4 g/dl (12.0-16.0); Immature Granulocytes # (auto) 0.12 K/uL (0.01-0.20); Lymphocytes # (auto) 2.78 K/uL (1.20-3.40); Lymphocytes % (auto) 22.4 %; Mean Corpuscular Hemoglobin 25.9 pg (25.0-34.0); Mean Corpuscular Hgb Conc 29.7 g/dL (32.0-36.0); Mean Corpuscular Volume 87.3 fL (80.0-100.0); Mean Platelet Volume 11.1 fL (9.4-12.4); Monocytes # (auto) 0.83 K/uL (0.11-0.59); Monocytes % (auto) 6.7 %; Neutrophils # (auto) 8.34 K/uL (1.40-6.50); Neutrophils % (auto) 67.2 %; Platelet Count 362 K/uL (130-400); RDW Coefficient of Variation 17.6 % (11.5-14.5); RDW Standard Deviation 56.1 fL (36.4-46.3); Red Blood Count 3.24 M/uL (4.20-5.40); White Blood Count 12.41 K/ul (4.8-10.8)
[2023-05-08 08:45] LABS: BUN Creatinine Ratio 10.6 (10-20); Calcium 8.5 mg/dl (8.6-10.3); Creatinine Clr Calc Pharmacy 29.6 ml/min; Est GFR (African American) 19.7 ml/min; Magnesium 1.8 mg/dl (1.7-2.4); Potassium 4.2 mmol/L (3.5-5.1)
[2023-05-08] MEDS ORDERED: IRON SUCROSE 200 MG in 0.9 % SODIUM CHLORIDE 100 ML IV ONE (10:00)
--- NOTE | 2023-05-08 10:12 | Hospitalist Progress Note ---
Date of Service May 08, 2023 Assessment & Plan (1) Ambulatory dysfunction: (2) Pleural effusion, right: (3) Abnormal chest x-ray: (4) Pain in right knee: (5) Diabetic foot ulcer: (6) Asthma: (7) Uncontrolled diabetes mellitus with hyperglycemia, with long-term current use of insulin: (8) Hypercholesteremia: (9) Hypertension: (10) Morbid obesity with BMI of 50.0-59.9, adult: (11) GERD (gastroesophageal reflux disease): (12) Anemia: (13) Cystitis: Plan Ms. Smith is a 62-year-old female who was admitted to our service after sustaining a mechanical fall at her home after she slipped in some urine. Acute on Chronic Kidney Disease -Patient with known CKD type IV. Follows with nephrology as an outpatient. -Creatinine increased to 2.84. Baseline Cr between 1.8-2.2. Patient indicating drinking 1 mug of water a day. -Suspect this is due to dehydration. -Will order IV bolus and re-evaluate BMP in the afternoon. Cystitis - Patient with UA suggesting urinary tract infection and urine culture growing gram-negative bacilli, and patient now referring with urinary symptoms (urgency and suprapubic pressure). -Suspect that patient's episode of blood in urine from yesterday morning is related to current cystitis. 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 -Ambulatory dysfunction may be secondary to morbid obesity, previous orthopedic issues -Hip and knee x-rays obtained in the emergency department negative for fractures. -Right ankle x-ray negative for fractures -Continue pain management with IV Tylenol 1 g and tramadol as needed. -PT and OT consulted and recommended inpatient rehab -Anticipate discharge to rehab center. Chronic anemia -Chronic issue for which patient has received iron transfusion and is on home iron supplements -Nursing reporting some small blood clots in toilet bowl this morning. - No other source of bleeding. -Today's hemoglobin stable at 8.4. -Patient's anemia was being managed with IV Venofer, however, given current urinary infection, will hold Venofer therapy. -Will monitor a.m. labs -Threshold for transfusion is hemoglobin below 7 or hemoglobin approximating 7 with patient experiencing symptoms of anemia. DM-II -Glucose on admission was 320 -Hemoglobin A1c in 03/2023 was 9%. Repeat level at time of admission is 7.9%. - Continue glargine 25 units subQ twice daily -Placed on Accu-Cheks with NovoLog SSI HFpEF -Not currently in exacerbation - Diagnosed in 02/2023 -Low-sodium diet -Bumex held due to rising creatinine -Will continue daily weights and monitoring fluid status. Hypothyroidism -Continue home Synthroid Asthma -Continue home inhalers Dispo: PT/OT consulted; anticipate need to rehab center Diet: Low sodium VTE ppx: Heparin Admission and Anticipated Discharge Date Admission Date: May 04, 2023 Supervising Physician Co-Signing Physician Notes I personally examined the patient and verified all parson points of history and exam, discussed case, and agree with decision making with Dr Hunter Feels better overall. Awaiting rehab. Vitals noted nad heent nc at mmm breathing unlabored no accessory muscles good effort skin no rashes no pallor or icterus neuro no focal deficits. PERLITA with CKD IV - related to fluid balance. continue to follow. Creatinine appears to have plateauednot too far from baseline range. Holding Bumex. Fall in the setting of ambulatory dysfunction - PT/OT consult - rehab / SNF for rehabinsurance noted peer to peer required Anemia, microcytic - follow periodically. replacing Fe HFpEF - holding bumex, no respiratory symptoms. DMII, glucoses reasonable control. continue current care. A1c 7.9% otherwise as above Subjective Ms. Smith is a 62-year-old female with past medical history relevant for DM-II, right diabetic foot ulcer, asthma, heart failure with preserved ejection fraction, hypertension, hypercholesterolemia, hypothyroidism, CKD type IV, ambulatory dysfunction, and morbid obesity who was admitted after sustaining a mechanical fall at her home after she slipped on some urine. Today she was evaluated at bedside and she was found to be awake alert and oriented in all spheres, and in no acute distress. Patient referring no pain today, he has been able to ambulate by herself using her walker to and from the bathroom. Patient is tolerating her diet well and currently has no complaints. She does refer having some suprapubic pressure as well as urinary frequency, but denies having any dysuria. Denies chest pain, shortness of breath, fevers, chills, or any other systemic symptoms. Review of Systems Review of Systems: As per HPI. Physical Exam Physical Exam: GENERAL: Awake alert and oriented in all spheres, obese habitus, no acute distress HEAD: Atraumatic and normocephalic EYES: EOM intact THROAT: Normal to visual inspection CARDIO: Regular rate and rhythm, no rubs murmurs or cons appreciated RESPIRATORY: Clear to auscultation bilaterally, no wheezing, normal respiratory effort, no respiratory distress EXTREMITIES: Swelling in bilateral lower extremities, bandage covering ulcer in the right foot which was clean, no erythema/warmth/tenderness bilateral lower extremities, no visible deformities noted Results & Data Results & Data Vital Signs (Past 12 Hours) Vital Signs Temp Pulse Resp BP Pulse Ox O2 Del Method 05/08/23 07:59 Room Air 05/08/23 07:27 36.6 C 68 18 165/74 H 98 Room Air (4) Pain in right knee Chronicity: acute Qualified Code(s): M25.561 - Pain in right knee (5) Diabetic foot ulcer Diabetes mellitus type: type 2 Diabetic foot ulcer location: heel Laterality: right Non-pressure ulcer stage: with fat layer exposed Qualified Code(s): E11.621 - Type 2 diabetes mellitus with foot ulcer; L97.412 - Non- pressure chronic ulcer of right heel and midfoot with fat layer exposed (9) Hypertension Hypertension type: primary hypertension Qualified Code(s): I10 - Essential (primary) hypertension (12) Anemia Anemia type: unspecified type Qualified Code(s): D64.9 - Anemia, unspecified
[2023-05-08] MEDS: cefTRIAXone SODIUM 2,000 MG in DEXTROSE 5 % MINI-B 50 ML IV SCH (10:23)
[2023-05-08] MEDS: SODIUM CHLORIDE 0.9% 1,000 ML IV ONE (10:54)
[2023-05-08 17:11] LABS: Calcium 8.2 mg/dl (8.6-10.3); Creatinine Clr Calc Pharmacy 29.9 ml/min; Est GFR (African American) 19.9 ml/min; Est GFR (Non-African American) 17.2 ml/min; Potassium 4.4 mmol/L (3.5-5.1)
[2023-05-08] MEDS: SODIUM CHLORIDE 0.9% 1,000 ML IV SCH (17:27)
--- NOTE | 2023-05-08 20:04 | Billing Data ---
Date of Service May 08, 2023 Coding Level of Care Code 89308 SUB INP/OBS CARE
[2023-05-09 08:14] LABS: Basophils # (auto) 0.05 K/uL (0.00-0.20); Basophils % (auto) 0.4 %; Eosinophils # (auto) 0.26 K/uL (0.00-0.50); Eosinophils % (auto) 2.2 %; Hematocrit (blood only) 29.5 % (37.0-47.0); Hemoglobin 8.7 g/dl (12.0-16.0); Immature Granulocytes # (auto) 0.11 K/uL (0.01-0.20); Immature Granulocytes % (auto) 0.9 %; Lymphocytes # (auto) 3.57 K/uL (1.20-3.40); Lymphocytes % (auto) 29.9 %; Mean Corpuscular Hgb Conc 29.5 g/dL (32.0-36.0); Mean Corpuscular Volume 88.3 fL (80.0-100.0); Mean Platelet Volume 10.8 fL (9.4-12.4); Monocytes # (auto) 0.75 K/uL (0.11-0.59); Monocytes % (auto) 6.3 %; Neutrophils # (auto) 7.21 K/uL (1.40-6.50); Neutrophils % (auto) 60.3 %; Platelet Count 369 K/uL (130-400); RDW Coefficient of Variation 18.1 % (11.5-14.5); RDW Standard Deviation 57.1 fL (36.4-46.3); Red Blood Count 3.34 M/uL (4.20-5.40); White Blood Count 11.95 K/ul (4.8-10.8)
[2023-05-09 08:33] LABS: BUN Creatinine Ratio 11.9 (10-20); Calcium 8.6 mg/dl (8.6-10.3); Creatinine Clr Calc Pharmacy 30.2 ml/min; Est GFR (African American) 20.2 ml/min; Est GFR (Non-African American) 17.4 ml/min; Potassium 4.3 mmol/L (3.5-5.1)
--- NOTE | 2023-05-09 09:43 | Hospitalist Progress Note ---
Date of Service May 09, 2023 Assessment & Plan (1) Ambulatory dysfunction: (2) Pleural effusion, right: (3) Abnormal chest x-ray: (4) Pain in right knee: (5) Diabetic foot ulcer: (6) Asthma: (7) Uncontrolled diabetes mellitus with hyperglycemia, with long-term current use of insulin: (8) Hypercholesteremia: (9) Hypertension: (10) Morbid obesity with BMI of 50.0-59.9, adult: (11) GERD (gastroesophageal reflux disease): (12) Anemia: (13) Cystitis: (14) Ulcer of right heel: Plan Ms. Smith is a 62-year-old female who was admitted to our service after sustaining a mechanical fall at her home after she slipped in some urine. Right Foot Heel Ulcer - Noted since 06/2022. - Started to get proper glycemic control in 03/2023 - Has offloading shoe in her home and following with wound clinic, but not very adherent with offloading shoe. - Consulted orthotics during this admission for new offloading shoe, but patient not interested in using it when she goes to the bathroom, which is for the most part the only ambulation she does during the day. - Discussed the risk of infection and delayed healing if she does not use offloading boot consistently, but patient not interested due to concern of imbalance/fear of falling when using it. - CRP ordered today and elevated at 3.92 (was <0.50 on 03/19/23). ESR elevated at >130 (was 86 on 03/19/23). - Wound care reporting right heel ulcer with copious drainage and slight odor. - Will order right foot MRI to r/o osteomyelitis or other sot tissue pathology Acute on Chronic Kidney Disease -Patient with known CKD type IV. Follows with nephrology as an outpatient. -Creatinine improved slightly to 2.78 after overnight IVF. Baseline Cr between 1.8-2.2. Patient indicating drinking 1 mug of water a day. -Suspect this is due to dehydration given improvement with IVF and patient referring poor oral intake of water. -Patient encouraged to drink at least 2-3 mugs of water. 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 -Ambulatory dysfunction may be secondary to morbid obesity, previous orthopedic issues -Hip, knee, and right ankle x-rays negative for fractures. -Continue pain management with IV Tylenol 1 g and tramadol as needed. -PT and OT consulted and recommended inpatient rehab -Anticipate discharge to SNF. Chronic anemia -Chronic issue for which patient has received iron transfusion and is on home iron supplements -Today's hemoglobin stable at 8.7. -Will monitor a.m. labs -Threshold for transfusion is hemoglobin below 7 or hemoglobin approximating 7 with patient experiencing symptoms of anemia. DM-II -Glucose on admission was 320 -Hemoglobin A1c in 03/2023 was 9%. Repeat level at time of admission is 7.9%. - Continue glargine 25 units subQ twice daily -Placed on Accu-Cheks with NovoLog SSI HFpEF -Not currently in exacerbation - Diagnosed in 02/2023 -Low-sodium diet -Bumex held due to rising creatinine -Will continue daily weights and monitoring fluid status. Hypothyroidism -Continue home Synthroid Asthma -Continue home inhalers Dispo: PT/OT consulted; anticipate need to rehab center Diet: Low sodium VTE ppx: Heparin Admission and Anticipated Discharge Date Admission Date: May 04, 2023 Supervising Physician Co-Signing Physician Notes I personally examined the patient and verified all parson points of history and exam, discussed case, and agree with decision making with Dr Hunter no acute complaints. Awaiting rehab. Vitals noted nad heent nc at mmm breathing unlabored no accessory muscles good effort skin no rashes no pallor or icterus neuro no focal deficits. right foot heel ulcer appears to be tunneling in the middle, there is mostly granulation tissue, but there is a little bit of exudate, no surrounding erythema, seems to be nontender. PERLITA with CKD IV - related to fluid balance. continue to follow. Creatinine appears to have plateauednot too far from baseline range. Holding Bumex. Encouraging p.o. fluid intake foot ulcerfinally starting to be more convinced about wearing boot to offload. MRI given concern about depth and possible bony involvement. No clear purulence or need for change in antibiotics at this pointsend exudate really appearing to be most amenable to local wound care, further decisions based on MRI imaging, continue ceftriaxone for now. Fall in the setting of ambulatory dysfunction - PT/OT consult - rehab / SNF for rehabinsurance Denied rehabworking on SNF Anemia, microcytic - follow periodically. replacing Fe HFpEF - holding bumex, no respiratory symptoms. DMII, glucoses reasonable control. continue current care. A1c 7.9% otherwise as above Subjective Today she was evaluated at bedside and she was found to be awake alert and oriented in all spheres, and in no acute distress. Patient referring persistent but improve pain in her lower extremities. She states that her pain is especially noticeable in her right ankle. She was given a boot for offloading for her right heel ulcer, but she has not wanted to use it due to concerns of imbalance when going to the bathroom, but would like to use it to talk around the hallways. She has been tolerating her diet well. Denies chest pain or shortness of breath, or any other systemic symptom. Review of Systems Review of Systems: As per HPI. Physical Exam Physical Exam: GENERAL: Awake alert and oriented in all spheres, obese habitus, no acute distress HEAD: Atraumatic and normocephalic EYES: EOM intact THROAT: Normal to visual inspection CARDIO: Regular rate and rhythm, no rubs murmurs or cons appreciated RESPIRATORY: Clear to auscultation bilaterally, no wheezing, normal respiratory effort, no respiratory distress EXTREMITIES: Swelling in bilateral lower extremities, no erythema/warmth/tenderness bilateral lower extremities, no visible deformities noted Results & Data Results & Data Vital Signs (Past 12 Hours) Vital Signs Temp Pulse Resp BP Pulse Ox O2 Del Method 05/09/23 07:19 36.4 C L 72 16 130/67 96 Room Air 05/08/23 22:19 Room Air (4) Pain in right knee Chronicity: acute Qualified Code(s): M25.561 - Pain in right knee (5) Diabetic foot ulcer Diabetes mellitus type: type 2 Diabetic foot ulcer location: heel Laterality: right Non-pressure ulcer stage: with fat layer exposed Qualified Code(s): E11.621 - Type 2 diabetes mellitus with foot ulcer; L97.412 - Non- pressure chronic ulcer of right heel and midfoot with fat layer exposed (9) Hypertension Hypertension type: primary hypertension Qualified Code(s): I10 - Essential (primary) hypertension (12) Anemia Anemia type: unspecified type Qualified Code(s): D64.9 - Anemia, unspecified
[2023-05-09 10:01] LABS: C Reactive Protein 3.92 mg/dl (0-0.5)
[2023-05-09] MEDS: SODIUM CHLORIDE 0.9% 1,000 ML IV SCH (11:16)
--- NOTE | 2023-05-09 13:49 | Billing Data ---
Date of Service May 09, 2023 Coding Level of Care Code 62604 SUB INP/OBS CARE MIN
[2023-05-09] MEDS: ACETAMINOPHEN 500 MG TAB PO PRN (19:38)
--- NOTE | 2023-05-09 19:49 | Magnetic Resonance Report ---
MR ankle RT wo con HISTORY: right heel ulcer TECHNIQUE: Multiplanar multisequence MRI of the right ankle was performed without contrast according to standard departmental protocol. COMPARISON STUDY: Right ankle radiograph 05/05/2023. FINDINGS: There is a focal skin ulceration along the plantar aspect of the heel which measures approx imately 3.8 x 3.7 cm. There is minimal edema like marrow signal at the plantar surface of the heel wi thout abnormal T1 signal. Therefore, this may represent an osteitis without evidence for osteomyeliti s. There is extensive subcutaneous edema within the ankle and visualized foot. No acute fracture or d islocation within the ankle. The flexor, extensor, peroneal, and Achilles tendons are intact. No evid ence for a plantar fasciitis. The sinus tarsi is maintained. Mild degenerative changes within the ank le and hindfoot. No loculated fluid collections to suggest an abscess. No bony destructive changes id entified. IMPRESSION: 1. A 3.8 x 3.7 cm skin ulceration at the plantar aspect of the heel. 2. Minimal edema like marrow signal at the plantar aspect of the calcaneus which could represent an o steitis. No abnormal T1 signal or bony destructive change to suggest an osteomyelitis at this time. 3. Extensive subcutaneous edema throughout the ankle and hindfoot. ACT 112: Negative or not required by law. Electronically signed by: Paco Contreras M.D. 05/09/2023 7:47 PM
[2023-05-09] MEDS: LANTUS PER UNIT CHARGE SQ SCH (21:33)
[2023-05-10] MEDS: ALBUTEROL HFA 8 GM INHALER INH PRN (04:26)
[2023-05-10 08:12] LABS: Basophils # (auto) 0.04 K/uL (0.00-0.20); Basophils % (auto) 0.3 %; Eosinophils # (auto) 0.17 K/uL (0.00-0.50); Eosinophils % (auto) 1.3 %; Hematocrit (blood only) 26.4 % (37.0-47.0); Hemoglobin 8.1 g/dl (12.0-16.0); Immature Granulocytes # (auto) 0.11 K/uL (0.01-0.20); Immature Granulocytes % (auto) 0.9 %; Lymphocytes # (auto) 3.08 K/uL (1.20-3.40); Mean Corpuscular Hemoglobin 26.7 pg (25.0-34.0); Mean Corpuscular Hgb Conc 30.7 g/dL (32.0-36.0); Mean Corpuscular Volume 87.1 fL (80.0-100.0); Mean Platelet Volume 10.8 fL (9.4-12.4); Monocytes # (auto) 0.93 K/uL (0.11-0.59); Monocytes % (auto) 7.3 %; Neutrophils # (auto) 8.48 K/uL (1.40-6.50); Neutrophils % (auto) 66.2 %; Platelet Count 358 K/uL (130-400); RDW Coefficient of Variation 18.4 % (11.5-14.5); RDW Standard Deviation 58.2 fL (36.4-46.3); Red Blood Count 3.03 M/uL (4.20-5.40); White Blood Count 12.81 K/ul (4.8-10.8)
[2023-05-10 08:36] LABS: BUN Creatinine Ratio 12.5 (10-20); Calcium 8.6 mg/dl (8.6-10.3); Creatinine Clr Calc Pharmacy 31.7 ml/min; Est GFR (African American) 21.6 ml/min; Est GFR (Non-African American) 18.6 ml/min; Potassium 4.3 mmol/L (3.5-5.1)
--- NOTE | 2023-05-10 11:05 | Hospitalist Progress Note ---
Date of Service May 10, 2023 Assessment & Plan (1) Ambulatory dysfunction: (2) Pleural effusion, right: (3) Abnormal chest x-ray: (4) Pain in right knee: (5) Diabetic foot ulcer: (6) Asthma: (7) Uncontrolled diabetes mellitus with hyperglycemia, with long-term current use of insulin: (8) Hypercholesteremia: (9) Hypertension: (10) Morbid obesity with BMI of 50.0-59.9, adult: (11) GERD (gastroesophageal reflux disease): (12) Anemia: (13) Cystitis: (14) Ulcer of right heel: Plan Ms. Smith is a 62-year-old female who was admitted to our service after sustaining a mechanical fall at her home after she slipped in some urine. Right Foot Heel Ulcer - Noted since 06/2022. - Started to get proper glycemic control in 03/2023 - Has offloading shoe in her home and following with wound clinic, but not very adherent with offloading shoe due to discomfort/imbalance. - Consulted orthotics during this admission for new offloading shoe, and patient more compliant after discussing risk of poor ulcer healing/infection with poor use of offloading show. - CRP yesterday elevated at 3.92 (was <0.50 on 03/19/23). ESR elevated at >130 (was 86 on 03/19/23). - Right heel ulcer with copious drainage and slight odor on exam. -Right ankle MRI not showing any calcaneus osteomyelitis, but is showing osteitis and soft tissue edema/swelling. -Will change antibiotic therapy to Keflex p.o. and patient encouraged to continue with offloading shoe use. -Will continue with wound care. Acute on Chronic Kidney Disease -Patient with known CKD type IV. Follows with nephrology as an outpatient. -Creatinine improved slightly to 2.63 with p.o. water intake. Baseline Cr between 1.8-2.2. -Suspect this is due to dehydration given improvement with IVF and patient referring poor oral intake of water. -Patient encouraged to drink at least 2-3 mugs of water. Cystitis - Patient with UA suggesting urinary tract infection and urine culture growing pansensitive proteus - Change antibiotic to Keflex 500 mg twice daily for 5 days to complete 7 days of therapy. 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 -Ambulatory dysfunction may be secondary to morbid obesity, previous orthopedic issues -Hip, knee, and right ankle x-rays negative for fractures. -Continue pain management with IV Tylenol 1 g and tramadol as needed. -PT and OT consulted and recommended inpatient rehab -Anticipate discharge to SNF. Referral sent. Chronic anemia -Chronic issue for which patient has received iron transfusion and is on home iron supplements -Today's hemoglobin stable at 8.1. -Will monitor a.m. labs -Threshold for transfusion is hemoglobin below 7 or hemoglobin approximating 7 with patient experiencing symptoms of anemia. DM-II -Hemoglobin A1c in 03/2023 was 9%. Repeat level at time of admission is 7.9%. - Continue glargine 25 units subQ twice daily -Placed on Accu-Cheks with NovoLog SSI HFpEF -Not currently in exacerbation -Low-sodium diet -Bumex held due to rising creatinine -Will continue monitoring fluid status. Hypothyroidism -Continue home Synthroid Asthma -Continue home inhalers Dispo: PT/OT consulted; anticipate need to SNF Diet: Low sodium, HH, DM2 VTE ppx: Heparin Admission and Anticipated Discharge Date Admission Date: May 04, 2023 Supervising Physician Co-Signing Physician Notes I personally examined the patient and verified all parson points of history and exam, discussed case, and agree with decision making with Dr Hunter feelata okay. Wearing boot. Discussed with wound care. Vitals noted nad heent nc at mmm breathing unlabored no accessory muscles good effort skin no rashes no pallor or icterus neuro no focal deficits. PERLITA with CKD IV - related to fluid balance. continue to follow. Creatinine appears to have plateauednot too far from baseline range and showing slow improvement. Holding Bumex. Encouraging p.o. fluid intake foot ulcerfinally starting to be more convinced about wearing boot to offload. MRI reassuring overallcontinue local wound care. continue ceftriaxone for now Fall in the setting of ambulatory dysfunction - PT/OT consult - rehab / SNF for rehabinsurance Denied rehabworking on SNF Anemia, microcytic - follow periodically. replacing Fe HFpEF - holding bumex, no respiratory symptoms. DMII, glucoses reasonable control. continue current care. A1c 7.9% otherwise as above Subjective Patient evaluated bedside and was found to be sitting on bedside chair, awake alert and oriented in all spheres, and in no acute distress. Patient refers persistent pain mainly in bilateral lower extremities, but improved compared to yesterday in which her pain was aggravated by physical therapy. He has been more compliant with using offloading shoe in her right foot. Has no other concerns today. Denies having fever, chills, malaise, chest pain, shortness of breath, palpitations, nausea, vomiting, diarrhea, or any other acute systemic symptoms. Review of Systems Review of Systems: As per HPI. Physical Exam Physical Exam: GENERAL: Awake alert and oriented in all spheres, obese habitus, no acute distress HEAD: Atraumatic and normocephalic EYES: EOM intact THROAT: Normal to visual inspection CARDIO: Regular rate and rhythm, no rubs murmurs or cons appreciated RESPIRATORY: Clear to auscultation bilaterally, no wheezing, normal respiratory effort, no respiratory distress EXTREMITIES: Swelling in bilateral lower extremities, no erythema/warmth/tenderness bilateral lower extremities, no visible deformities noted Results & Data Results & Data Vital Signs (Past 12 Hours) Vital Signs Pulse Resp BP Pulse Ox O2 Del Method O2 Flow Rate 05/10/23 08:06 70 17 166/80 H 93 Room Air 05/10/23 04:26 66 18 98 Nasal Cannula 2 (4) Pain in right knee Chronicity: acute Qualified Code(s): M25.561 - Pain in right knee (5) Diabetic foot ulcer Diabetes mellitus type: type 2 Diabetic foot ulcer location: heel Laterality: right Non-pressure ulcer stage: with fat layer exposed Qualified Code(s): E11.621 - Type 2 diabetes mellitus with foot ulcer; L97.412 - Non- pressure chronic ulcer of right heel and midfoot with fat layer exposed (9) Hypertension Hypertension type: primary hypertension Qualified Code(s): I10 - Essential (primary) hypertension (12) Anemia Anemia type: unspecified type Qualified Code(s): D64.9 - Anemia, unspecified
--- NOTE | 2023-05-10 19:34 | Billing Data ---
Date of Service May 10, 2023 Coding Level of Care Code 72497 SUB INP/OBS CARE
[2023-05-11] MEDS: cephALEXin 500 MG CAP PO SCH (05:46)
[2023-05-11 07:29] LABS: Hemoglobin 8.1 g/dl (12.0-16.0); Mean Corpuscular Volume 86.8 fL (80.0-100.0); Mean Platelet Volume 10.9 fL (9.4-12.4); Platelet Count 365 K/uL (130-400); RDW Coefficient of Variation 18.4 % (11.5-14.5); RDW Standard Deviation 57.7 fL (36.4-46.3); Red Blood Count 3.11 M/uL (4.20-5.40); White Blood Count 11.16 K/ul (4.8-10.8)
[2023-05-11 07:44] LABS: Calcium 8.8 mg/dl (8.6-10.3); Est GFR (African American) 20.8 ml/min; Est GFR (Non-African American) 17.9 ml/min; Magnesium 1.9 mg/dl (1.7-2.4); Potassium 4.4 mmol/L (3.5-5.1)
[2023-05-11] MEDS: LANTUS PER UNIT CHARGE SQ SCH (09:44)
--- NOTE | 2023-05-11 10:07 | Hospitalist Progress Note ---
Date of Service May 11, 2023 Assessment & Plan (1) Ambulatory dysfunction: (2) Pleural effusion, right: (3) Abnormal chest x-ray: (4) Pain in right knee: (5) Diabetic foot ulcer: (6) Asthma: (7) Uncontrolled diabetes mellitus with hyperglycemia, with long-term current use of insulin: (8) Hypercholesteremia: (9) Hypertension: (10) Morbid obesity with BMI of 50.0-59.9, adult: (11) GERD (gastroesophageal reflux disease): (12) Anemia: (13) Cystitis: (14) Ulcer of right heel: Plan Ms. Smith is a 62-year-old female who was admitted to our service after sustaining a mechanical fall at her home after she slipped in some urine. Acute on Chronic Kidney Disease -Patient with known CKD type IV. Follows with nephrology as an outpatient. -Slight increase in creatinine in a.m. labs showing a level of 2.71 compared to 2.63 from yesterday. Baseline Cr between 1.8-2.2. -Patient not drinking much water, which is likely the main contributor to her increasing creatinine. -Patient encouraged to drink at least 2-3 mugs of water. Home Bumex on hold. -Consider including increase in p.o. water intake as part of discharge instructions to notify personnel at care center to which she will be discharged to to keep an eye on this. Would also advise weekly-biweekly BMPs after discharge to monitor renal parameters. Contipation - Patient with no bowel movements on the last few days. No associated abdominal pain. - Low water intake likely playing a role. - Will order scheduled miralax and encourage increased oral hydration. Right Foot Heel Ulcer - Noted since 06/2022. -Offloading shoe for her right foot ordered, and patient has been using it since orthotics provided to the - CRP elevated at 3.92 (was <0.50 on 03/19/23). ESR elevated at >130 (was 86 on 03/19/23). MRI showing osteitis but no osteomyelitis. -Will continue with wound care. Cystitis - Patient with UA suggesting urinary tract infection and urine culture growing pansensitive proteus - Change antibiotic to Keflex 500 mg twice daily to complete 7 days of therapy (day 47). 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 -Ambulatory dysfunction may be secondary to morbid obesity, previous orthopedic issues -Hip, knee, and right ankle x-rays negative for fractures. -Continue pain management with IV Tylenol 1 g and tramadol as needed. -PT and OT consulted and recommended inpatient rehab -Anticipate discharge to SNF. Referral sent. Chronic anemia -Chronic issue for which patient has received iron transfusion and is on home iron supplements -Today's hemoglobin stable at 8.1. -Will monitor a.m. labs -Threshold for transfusion is hemoglobin below 7 or hemoglobin approximating 7 with patient experiencing symptoms of anemia. DM-II -Hemoglobin A1c in 03/2023 was 9%. Repeat level at time of admission is 7.9%. - Continue glargine at decreased dose (18 SubQ bid) due to a.m. hypoglycemia. -Placed on Accu-Cheks with NovoLog SSI HFpEF -Not currently in exacerbation -Low-sodium diet -Bumex held due to rising creatinine -Will continue monitoring fluid status. Hypothyroidism -Continue home Synthroid Asthma -Continue home inhalers Dispo: PT/OT consulted; anticipate need to SNF Diet: Low sodium, HH, DM2 VTE ppx: Heparin Admission and Anticipated Discharge Date Admission Date: May 04, 2023 Supervising Physician Co-Signing Physician Notes I personally examined the patient and verified all parson points of history and exam, discussed case, and agree with decision making with Dr Hunter feels okay. No new issues or complaints, still awaiting placement. Vitals noted nad heent nc at mmm breathing unlabored no accessory muscles good effort skin no rashes no pallor or icterus neuro no focal deficits. PERLITA with CKD IV - related to fluid balance. continue to follow. Creatinine appears to have plateauednot too far from baseline range and showing slow improvement. Holding Bumex. Encouraging p.o. fluid intake, continue to followI suspect her lack of improvement is somewhere between being just worse than her baseline, and possibly ongoing poor p.o. fluid intake. When she goes to SNF, probably will need to have them continue to hold off on Bumex and follow her closely. foot ulcerfinally starting to be more convinced about wearing boot to offload. MRI reassuring overallcontinue local wound care. continue antibiotics for superficial coverage. Fall in the setting of ambulatory dysfunction - PT/OT consult - rehab / SNF for rehabinsurance Denied rehabworking on SNF, stable when bed available Anemia, microcytic - follow periodically. replacing Fe HFpEF - holding bumex, no respiratory symptoms. DMII, glucoses reasonable control. continue current care. A1c 7.9% otherwise as above Subjective Patient was evaluated bedside and found to be alone, awake alert and oriented in all spheres, no acute distress. Patient refers mild improvement with regard to lower extremity pain after some movement this morning. Patient referring constipation that has turned uncomfortable. She has been drinking maybe 1 mug of water a day. Denies having any chest pain, shortness of breath, weakness, chills, fevers, nausea, vomiting, diarrhea, or any other systemic symptoms Review of Systems Review of Systems: As per HPI. Physical Exam Physical Exam: GENERAL: Awake alert and oriented in all spheres, obese habitus, no acute distress HEAD: Atraumatic and normocephalic EYES: EOM intact THROAT: Normal to visual inspection CARDIO: Regular rate and rhythm, no rubs murmurs or cons appreciated RESPIRATORY: Clear to auscultation bilaterally, no wheezing, normal respiratory effort, no respiratory distress GI: Soft, nondistended, nontender EXTREMITIES: Swelling in bilateral lower extremities, no erythema/warmth/t enderness bilateral lower extremities, no visible deformities noted Results & Data Results & Data Vital Signs (Past 12 Hours) Vital Signs Temp Pulse Resp BP Pulse Ox O2 Del Method 05/11/23 07:41 36.3 C L 59 L 18 147/69 H 94 Room Air (4) Pain in right knee Chronicity: acute Qualified Code(s): M25.561 - Pain in right knee (5) Diabetic foot ulcer Diabetes mellitus type: type 2 Diabetic foot ulcer location: heel Laterality: right Non-pressure ulcer stage: with fat layer exposed Qualified Code(s): E11.621 - Type 2 diabetes mellitus with foot ulcer; L97.412 - Non- pressure chronic ulcer of right heel and midfoot with fat layer exposed (9) Hypertension Hypertension type: primary hypertension Qualified Code(s): I10 - Essential (primary) hypertension (12) Anemia Anemia type: unspecified type Qualified Code(s): D64.9 - Anemia, unspecified
[2023-05-11 10:09] LABS: Basophils % (auto) 0.4 %; Eosinophils % (auto) 2.1 %; Immature Granulocytes % (auto) 1.2 %; Lymphocytes % (auto) 30.1 %; Monocytes % (auto) 6.8 %; Neutrophils % (auto) 59.4 %
[2023-05-11 10:10] LABS: Basophils # (auto) 0.04 K/uL (0.00-0.20); Eosinophils # (auto) 0.23 K/uL (0.00-0.50); Immature Granulocytes # (auto) 0.13 K/uL (0.01-0.20); Lymphocytes # (auto) 3.36 K/uL (1.20-3.40); Monocytes # (auto) 0.76 K/uL (0.11-0.59); Neutrophils # (auto) 6.64 K/uL (1.40-6.50)
[2023-05-11] MEDS: POLYETHYLENE (MIRALAX) 17 GM PACK PO SCH (14:19)
--- NOTE | 2023-05-11 18:08 | Billing Data ---
Date of Service May 11, 2023 Coding Level of Care Code 09491 SUB INP/OBS CARE
[2023-05-11] MEDS: SOD PHOSPHATE/SOD BIPHOSPHATE ENEMA 132 ML BTL PR ONE (20:18)
--- NOTE | 2023-05-12 07:45 | Hospitalist Progress Note ---
Date of Service May 12, 2023 Assessment & Plan (1) Ambulatory dysfunction: (2) Pleural effusion, right: (3) Abnormal chest x-ray: (4) Pain in right knee: (5) Diabetic foot ulcer: (6) Asthma: (7) Uncontrolled diabetes mellitus with hyperglycemia, with long-term current use of insulin: (8) Hypercholesteremia: (9) Hypertension: (10) Morbid obesity with BMI of 50.0-59.9, adult: (11) GERD (gastroesophageal reflux disease): (12) Anemia: (13) Cystitis: (14) Ulcer of right heel: Plan Ms. Smith is a 62-year-old female who was admitted to our service after sustaining a mechanical fall at her home after she slipped in some urine. Acute on Chronic Kidney Disease -Patient with known CKD type IV. Follows with nephrology as an outpatient. - Baseline Cr between 1.8-2.2. - Today Cr had improved to 2.40, near her baseline -Patient not drinking much water, which is likely the main contributor to her increasing creatinine. -Patient encouraged to drink at least 2-3 mugs of water. Home Bumex on hold. -Consider including increase in p.o. water intake as part of discharge instructions to notify personnel at care center to which she will be discharged to to keep an eye on this. Would also advise weekly-biweekly BMPs after discharge to monitor renal parameters. Constipation - Patient with no bowel movements on the last few days. No associated abdominal pain. Last BM yesterday: brown alvin - Low water intake likely playing a role. - Continue scheduled Miralax and encourage increased oral hydration. Right Foot Heel Ulcer - Noted since 06/2022. -Offloading shoe for her right foot ordered - CRP elevated at 3.92 (was <0.50 on 03/19/23). ESR elevated at >130 (was 86 on 03/19/23). MRI showing osteitis but no osteomyelitis. -Will continue with wound care. - Continue Keflex for superficial coverage. Cystitis - Patient with UA suggesting urinary tract infection and urine culture growing pansensitive proteus - Change antibiotic to Keflex 500 mg twice daily to complete 7 days of therapy (day 5/7). 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 -Ambulatory dysfunction may be secondary to morbid obesity, previous orthopedic issues -Hip, knee, and right ankle x-rays negative for fractures. -Continue pain management with IV Tylenol 1 g and tramadol as needed. -PT and OT consulted and recommended inpatient rehab -Anticipate discharge to SNF. Referral sent. Chronic anemia -Chronic issue for which patient has received iron transfusion and is on home iron supplements -Today's hemoglobin stable at 8.2 -Will monitor a.m. labs DM-II -Hemoglobin A1c 7.9%. - Continue glargine at decreased dose (18 SubQ bid) due to a.m. hypoglycemia. -Placed on Accu-Cheks with NovoLog SSI HFpEF -Not currently in exacerbation -Low-sodium diet -Bumex held due to rising creatinine -Will continue monitoring fluid status. Hypothyroidism -Continue home Synthroid Asthma -Continue home inhalers Dispo: PT/OT consulted; anticipate need to SNF Diet: Low sodium, HH, DM2 VTE ppx: Heparin Admission and Anticipated Discharge Date Admission Date: May 04, 2023 Supervising Physician Co-Signing Physician Notes I personally examined the patient and verified all parson points of history and exam, discussed case, and agree with decision making with Dr. Soham Bradley. Overall feeling well with no significant acute concerns. Endorsing mild constipation but denies any nausea/vomiting or abdominal pain. Reports her wound change of her heel went well and has not been bleeding. Vitals reviewednote elevated blood pressure. Otherwise resting comfortably in bed, eating her lunch in no acute distress. Abdomen soft and nontender. Right lower extremity wound with overlying dressing in place that is clean dry and intact. Unlabored breathing. Trace pedal edema. Labs reviewed from today with stable mild leukocytosis, stable anemia with hemoglobin of 8.2, stable sodium at 132. Improving creatinine down to 2.4 PERLITA with CKD IV - related to fluid balance. continue to follow. Creatinine now improving to baseline range. Holding Bumex. Encouraging p.o. fluid intake. When she goes to SNF, probably will need to continue to hold Bumex and follow closely. Foot ulcerfinally starting to be more convinced about wearing boot to offload. MRI reassuring overallcontinue local wound care. continue antibiotics for superficial coverage. Fall in the setting of ambulatory dysfunction - PT/OT consult - rehab / SNF for rehabinsurance Denied rehabworking on SNF, stable when bed available Anemia, microcytic - follow periodically. replacing Fe HFpEF - holding bumex, no respiratory symptoms. DMII, glucoses reasonable control. continue current care. A1c 7.9% Constipationcontinue bowel regimen and encourage oral hydration Otherwise as above SNF when bed available Subjective Patient was evaluated bedside and found awake alert and oriented x 3, in no acute distress. Refers feeling ok, had a BM yesterday, it was alvin. Taking Miralax TID. She refers drinking water but not as much as she should. We are waiting placement to SNF , Case management following. Denies having any chest pain, shortness of breath, weakness, chills, fevers, nausea, vomiting, diarrhea, or any other systemic symptoms Review of Systems Review of Systems: as per HPI Physical Exam Constitutional: WD/WN, vitals as above ENMT: external ear and nose normal, oropharynx normal Respiratory: normal respiratory effort, lungs clear to auscultation Cardiovascular: Rate/Rhythm: regular rate and regular rhythm Gastrointestinal (Abdomen): normal bowel sounds, soft, nontender, no hepatosplenomegaly Musculoskeletal: Bilateral edema. +1 Results & Data Results & Data Vital Signs (Past 12 Hours) Vital Signs Temp Pulse Resp BP Pulse Ox O2 Del Method 05/11/23 20:00 Room Air 05/11/23 20:00 36.9 C 73 18 162/75 H 97 Room Air Resident Activity Tracking Resident Involvement: Resident Care Provided Care Provided: Adult Hospital Medicine (4) Pain in right knee Chronicity: acute Qualified Code(s): M25.561 - Pain in right knee (5) Diabetic foot ulcer Diabetes mellitus type: type 2 Diabetic foot ulcer location: heel Laterality: right Non-pressure ulcer stage: with fat layer exposed Qualified Code(s): E11.621 - Type 2 diabetes mellitus with foot ulcer; L97.412 - Non- pressure chronic ulcer of right heel and midfoot with fat layer exposed (9) Hypertension Hypertension type: primary hypertension Qualified Code(s): I10 - Essential (primary) hypertension (12) Anemia Anemia type: unspecified type Qualified Code(s): D64.9 - Anemia, unspecified
[2023-05-12 08:48] LABS: Basophils # (auto) 0.04 K/uL (0.00-0.20); Basophils % (auto) 0.3 %; Eosinophils # (auto) 0.24 K/uL (0.00-0.50); Hematocrit (blood only) 27.5 % (37.0-47.0); Hemoglobin 8.2 g/dl (12.0-16.0); Immature Granulocytes # (auto) 0.14 K/uL (0.01-0.20); Immature Granulocytes % (auto) 1.2 %; Lymphocytes % (auto) 23.7 %; Mean Corpuscular Hemoglobin 26.4 pg (25.0-34.0); Mean Corpuscular Hgb Conc 29.8 g/dL (32.0-36.0); Mean Corpuscular Volume 88.4 fL (80.0-100.0); Monocytes # (auto) 0.84 K/uL (0.11-0.59); Monocytes % (auto) 7.1 %; Neutrophils # (auto) 7.76 K/uL (1.40-6.50); Neutrophils % (auto) 65.7 %; Platelet Count 360 K/uL (130-400); RDW Coefficient of Variation 18.8 % (11.5-14.5); RDW Standard Deviation 59.4 fL (36.4-46.3); Red Blood Count 3.11 M/uL (4.20-5.40); White Blood Count 11.82 K/ul (4.8-10.8)
[2023-05-12 08:59] LABS: BUN Creatinine Ratio 16.3 (10-20); Calcium 8.6 mg/dl (8.6-10.3); Creatinine Clr Calc Pharmacy 35.7 ml/min; Est GFR (African American) 24.1 ml/min; Est GFR (Non-African American) 20.8 ml/min; Potassium 4.9 mmol/L (3.5-5.1)
--- NOTE | 2023-05-12 14:45 | Billing Data ---
Date of Service May 12, 2023 Coding Level of Care Code 63642 SUB INP/OBS CARE
[2023-05-12] MEDS: IPRATROPIUM BROMIDE HFA INHALER INH PRN (18:08)
--- NOTE | 2023-05-13 07:56 | Hospitalist Progress Note ---
Date of Service May 13, 2023 Assessment & Plan (1) Ambulatory dysfunction: (2) Pleural effusion, right: (3) Abnormal chest x-ray: (4) Pain in right knee: (5) Diabetic foot ulcer: (6) Asthma: (7) Uncontrolled diabetes mellitus with hyperglycemia, with long-term current use of insulin: (8) Hypercholesteremia: (9) Hypertension: (10) Morbid obesity with BMI of 50.0-59.9, adult: (11) GERD (gastroesophageal reflux disease): (12) Anemia: (13) Cystitis: (14) Ulcer of right heel: Plan Ms. Smith is a 62-year-old female who was admitted to our service after sustaining a mechanical fall at her home after she slipped in some urine. Acute on Chronic Kidney Disease -Patient with known CKD type IV. Follows with nephrology as an outpatient. - Baseline Cr between 1.8-2.2. - Today Cr stable at 2.40. -Patient not drinking much water, which is likely the main contributor to her increasing creatinine. - Home Bumex on hold. -Consider including increase in p.o. water intake as part of discharge instructions to notify personnel at care center to which she will be discharged to to keep an eye on this. - Would also advise weekly-biweekly BMPs after discharge to monitor renal parameters. Right Foot Heel Ulcer - Noted since 06/2022. -Offloading shoe for her right foot ordered - CRP elevated at 3.92 (was <0.50 on 03/19/23). ESR elevated at >130 (was 86 on 03/19/23). MRI showing osteitis but no osteomyelitis. -Will continue with wound care. - Continue Keflex for superficial coverage. Cystitis - Patient with UA suggesting urinary tract infection and urine culture with pansensitive proteus - Change antibiotic to Keflex 500 mg twice daily to complete 7 days of therapy (day 6/7). 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 -Ambulatory dysfunction may be secondary to morbid obesity, previous orthopedic issues -Hip, knee, and right ankle x-rays negative for fractures. -Continue pain management with IV Tylenol 1 g and tramadol as needed. -PT and OT consulted -Anticipate discharge to SNF. Referral sent. Constipation- Resolved - Patient with no bowel movements on the last few days. No associated abdominal pain.\ - Last BM yesterday: loose BM - Low water intake likely playing a role. - Continue scheduled Miralax and encourage increased oral hydration. Chronic anemia -Chronic issue for which patient has received iron transfusion and is on home iron supplements -Today's hemoglobin stable at 8.7 -Will monitor a.m. labs DM-II -Hemoglobin A1c 7.9%. - Continue glargine at decreased dose (18 SubQ bid) due to a.m. hypoglycemia. -Placed on Accu-Cheks with NovoLog SSI HFpEF -Not currently in exacerbation -Low-sodium diet -Bumex held due to rising creatinine, reconsider re-starting when Cr stabilized -Will continue monitoring fluid status. Hypothyroidism -Continue home Synthroid Asthma -Continue home inhalers Dispo: PT/OT consulted; anticipate need to SNF Diet: Low sodium, HH, DM2 VTE ppx: Heparin Admission and Anticipated Discharge Date Admission Date: May 04, 2023 Supervising Physician Co-Signing Physician Notes I personally examined the patient and verified all parson points of history and exam, discussed case, and agree with decision making with Dr. Soham Bradley. Overall feeling well with no significant acute concerns. Reports she had a successful BM. Having some increase in BLE pain today. Vitals reviewednote elevated blood pressure. Otherwise in NAD sitting upright in chair. Abdomen soft and nontender. Right lower extremity wound with overlying dressing in place that is clean dry and intact. Nonlabored breathing. Trace pedal edema Labs reviewed from today with stable mild leukocytosis, stable anemia, stable hyponatremia. Creatinine remains stable at 2.4 PERLITA with CKD IV - related to fluid balance. continue to follow. Creatinine now at baseline range. Holding Bumex. Encouraging p.o. fluid intake. When she goes to SNF, probably will need to continue to hold Bumex and follow closely. Foot ulcerfinally starting to be more convinced about wearing boot to offload. MRI reassuring overallcontinue local wound care. continue antibiotics for superficial coverage. Fall in the setting of ambulatory dysfunction - PT/OT consult - rehab / SNF for rehabinsurance Denied rehabworking on SNF, stable when bed available Anemia, microcytic - follow periodically. replacing Fe HFpEF - holding bumex, no respiratory symptoms. DMII, glucoses reasonable control. continue current care. A1c 7.9% Constipationimproving, continue bowel regimen and encourage oral hydration Otherwise care as above SNF when bed available Subjective Patient was evaluated bedside and found sitting in her chair awake alert and oriented x 3, in no acute distress. No complains today. Cr. stable at 2.40.Had a loose BM yesterday. Patient is pending placement. Case management following. Denied having any chest pain, shortness of breath, weakness, chills, fevers, nausea, vomiting, diarrhea, or any other systemic symptoms Review of Systems Review of Systems: as per HPI Physical Exam Constitutional: WD/WN, vitals as above ENMT: external ear and nose normal, oropharynx normal Respiratory: normal respiratory effort, lungs clear to auscultation Cardiovascular: Rate/Rhythm: regular rate and regular rhythm Gastrointestinal (Abdomen): normal bowel sounds, soft, nontender, no hepatosplenomegaly Results & Data Results & Data Vital Signs (Past 12 Hours) Vital Signs Temp Pulse Resp BP BP Pulse Ox O2 Del Method 05/13/23 07:02 36.5 C 61 16 150/77 H 97 Room Air 05/12/23 21:12 36.7 C 69 18 146/71 H 93 Room Air 05/12/23 20:20 Room Air Resident Activity Tracking Resident Involvement: Resident Care Provided Care Provided: Adult Hospital Medicine (4) Pain in right knee Chronicity: acute Qualified Code(s): M25.561 - Pain in right knee (5) Diabetic foot ulcer Diabetes mellitus type: type 2 Diabetic foot ulcer location: heel Laterality: right Non-pressure ulcer stage: with fat layer exposed Qualified Code(s): E11.621 - Type 2 diabetes mellitus with foot ulcer; L97.412 - Non- pressure chronic ulcer of right heel and midfoot with fat layer exposed (9) Hypertension Hypertension type: primary hypertension Qualified Code(s): I10 - Essential (primary) hypertension (12) Anemia Anemia type: unspecified type Qualified Code(s): D64.9 - Anemia, unspecified
[2023-05-13 08:20] LABS: Basophils # (auto) 0.05 K/uL (0.00-0.20); Basophils % (auto) 0.4 %; Eosinophils # (auto) 0.18 K/uL (0.00-0.50); Eosinophils % (auto) 1.5 %; Hematocrit (blood only) 29.1 % (37.0-47.0); Hemoglobin 8.7 g/dl (12.0-16.0); Immature Granulocytes # (auto) 0.11 K/uL (0.01-0.20); Immature Granulocytes % (auto) 0.9 %; Lymphocytes # (auto) 2.13 K/uL (1.20-3.40); Lymphocytes % (auto) 18.3 %; Mean Corpuscular Hemoglobin 26.4 pg (25.0-34.0); Mean Corpuscular Hgb Conc 29.9 g/dL (32.0-36.0); Mean Corpuscular Volume 88.2 fL (80.0-100.0); Mean Platelet Volume 11.1 fL (9.4-12.4); Monocytes # (auto) 0.74 K/uL (0.11-0.59); Monocytes % (auto) 6.3 %; Neutrophils # (auto) 8.46 K/uL (1.40-6.50); Neutrophils % (auto) 72.6 %; Platelet Count 407 K/uL (130-400); RDW Coefficient of Variation 18.8 % (11.5-14.5); RDW Standard Deviation 60.4 fL (36.4-46.3); White Blood Count 11.67 K/ul (4.8-10.8)
[2023-05-13 08:40] LABS: BUN Creatinine Ratio 17.1 (10-20); Calcium 9.1 mg/dl (8.6-10.3); Creatinine Clr Calc Pharmacy 36.1 ml/min; Est GFR (African American) 24.1 ml/min; Est GFR (Non-African American) 20.8 ml/min; Magnesium 2.1 mg/dl (1.7-2.4); Potassium 4.9 mmol/L (3.5-5.1)
--- NOTE | 2023-05-13 14:35 | Billing Data ---
Date of Service May 13, 2023 Coding Level of Care Code 24979 SUB INP/OBS CARE
--- NOTE | 2023-05-13 18:17 | XRay Report ---
XR knee LT 1 or 2V routine, XR knee RT 1 or 2V routine HISTORY: 63 years-old Female Knee pain chronic bilateral knee pain COMPARISON: Right knee radiographs 05/04/2023 TECHNIQUE: 2 views of the bilateral knees FINDINGS: Limited exam secondary to patient body habitus. LEFT: Moderate tricompartmental osteoarthritis. No acute fracture or dislocation identified. Diffuse soft t issue prominence. Evaluation for a knee effusion is near nondiagnostic due to the patient's body habi tus. RIGHT: [id number] lateral with moderate medial and patellofemoral compartment osteoarthritis. No acute fracture or dislocation identified. Diffuse soft tissue prominence. Evaluation for a knee effusion i s near nondiagnostic due to the patient's body habitus. IMPRESSION: 1. No acute fracture or dislocation. 2. Osteoarthritis of the knees. ACT 112: Negative or not required by law. The above report was generated using voice recognition software. It may contain grammatical, syntax o r spelling errors. Electronically signed by: Bryan Manrique M.D. 05/13/2023 6:15 PM
[2023-05-14 08:13] LABS: Basophils # (auto) 0.05 K/uL (0.00-0.20); Basophils % (auto) 0.5 %; Eosinophils # (auto) 0.27 K/uL (0.00-0.50); Eosinophils % (auto) 2.6 %; Hematocrit (blood only) 26.7 % (37.0-47.0); Hemoglobin 7.9 g/dl (12.0-16.0); Immature Granulocytes # (auto) 0.11 K/uL (0.01-0.20); Immature Granulocytes % (auto) 1.1 %; Lymphocytes # (auto) 2.96 K/uL (1.20-3.40); Lymphocytes % (auto) 28.8 %; Mean Corpuscular Hemoglobin 26.2 pg (25.0-34.0); Mean Corpuscular Hgb Conc 29.6 g/dL (32.0-36.0); Mean Corpuscular Volume 88.4 fL (80.0-100.0); Mean Platelet Volume 11.1 fL (9.4-12.4); Monocytes # (auto) 0.83 K/uL (0.11-0.59); Monocytes % (auto) 8.1 %; Neutrophils # (auto) 6.05 K/uL (1.40-6.50); Neutrophils % (auto) 58.9 %; Platelet Count 364 K/uL (130-400); RDW Coefficient of Variation 18.9 % (11.5-14.5); RDW Standard Deviation 60.6 fL (36.4-46.3); Red Blood Count 3.02 M/uL (4.20-5.40); White Blood Count 10.27 K/ul (4.8-10.8)
--- NOTE | 2023-05-14 08:24 | Hospitalist Progress Note ---
Date of Service May 14, 2023 Assessment & Plan (1) Ambulatory dysfunction: (2) Pleural effusion, right: (3) Abnormal chest x-ray: (4) Pain in right knee: (5) Diabetic foot ulcer: (6) Asthma: (7) Uncontrolled diabetes mellitus with hyperglycemia, with long-term current use of insulin: (8) Hypercholesteremia: (9) Hypertension: (10) Morbid obesity with BMI of 50.0-59.9, adult: (11) GERD (gastroesophageal reflux disease): (12) Anemia: (13) Cystitis: (14) Ulcer of right heel: Plan Ms. Smith is a 63-year-old female who was admitted to our service after sustaining a mechanical fall at her home after she slipped in some urine. Acute on Chronic Kidney Disease -Patient with h/o CKD stage IV. Follows with nephrology as an outpatient. -Baseline Cr between 1.8-2.2. -AM Cr 2.57 -Continue to hold home Bumex -Recommend increased PO fluid intake -Would also advise weekly-biweekly BMPs after discharge to monitor renal parameters. Right Foot Heel Ulcer - Chronic, since 06/2022. - Offloading shoe for her right foot ordered - CRP elevated at 3.92 (was <0.50 on 03/19/23). ESR elevated at >130 (was 86 on 03/19/23). MRI showing osteitis but no osteomyelitis. - Wound care consulted, appreciate recs: - Cleanse with saline, cover with adaptic touch, then Aquacel Ag, ABD and secure with large kerlix. Change daily. Offloading shoe when foot contacts floor. - ?need for outpatient wound care follow up Cystitis - Patient with UA consistent with urinary tract infection and urine culture with pansensitive proteus - 7 day course of Keflex completed. Ambulatory dysfunction -Ambulatory dysfunction may be secondary to morbid obesity, previous orthopedic issues -Hip, knee, and right ankle x-rays negative for fractures. -Continue pain management with IV Tylenol 1 g and tramadol as needed. -PT and OT consulted, updated evals needed prior to SNF approval -Anticipate discharge to SNF, CM following. Constipation- Resolved - Continue scheduled Miralax and encourage increased oral hydration. Chronic anemia -Chronic issue for which patient has received iron transfusion and is on home iron supplements -AM Hgb 7.9, patient asx, continue to monitor DM-II -Hemoglobin A1c 7.9%. -Continue glargine at decreased dose (18 SubQ bid) due to previous AM hypoglycemia -Placed on Accu-Cheks with NovoLog SSI HFpEF -Not currently in exacerbation -Low-sodium diet -Bumex held due to rising creatinine, consider re-starting when Cr stabilized -Will continue monitoring fluid status. Hypothyroidism -Continue home Synthroid Asthma -Continue home inhalers Dispo: PT/OT updated evals; anticipate discharge to SNF Diet: Low sodium, HH, DM2 VTE ppx: Heparin Admission and Anticipated Discharge Date Admission Date: May 04, 2023 Supervising Physician Co-Signing Physician Notes Attending Physician Supervision Note: I independently interviewed and examined the patient and verified the parson history and physical, reviewed labs and image studies and agree with findings and care plan noted above. No new concerns Vitals reviewednote elevated blood pressure. Otherwise in NAD sitting upright in chair. Abdomen soft and nontender. Right lower extremity wound with overlying dressing in place that is clean dry and intact. Nonlabored breathing. Trace pedal edema PERLITA with CKD IV - Creatinine now at baseline range. Holding Bumex. Encouraging p.o. fluid intake. When she goes to SNF, will need to continue to hold Bumex and follow closely. Foot ulcer MRI with no Osteomyelitis. continue local wound care. continue antibiotics for superficial coverage. Boots to offload weight. Fall in the setting of ambulatory dysfunction - PT/OT consult - rehab / SNF for rehabinsurance Denied rehabworking on SNF, stable when bed available Anemia, microcytic - follow periodically. replacing Fe HFpEF - holding bumex, no respiratory symptoms. DMII, glucoses reasonable control. continue current care. A1c 7.9% Constipationimproving, continue bowel regimen and encourage oral hydration Otherwise care as above SNF when bed available Subjective Patient was evaluated bedside this morning, resting comfortably. Notes increased LE swelling but denies shortness of breath or orthopnea. Estimates 24 hour fluid consumption at around 750mL. Denies pain at site of ulcer. Review of Systems Review of Systems: as per HPI Physical Exam Physical Exam: General: Alert and oriented. No acute distress Cardiac: Regular rate and rhythm, no murmurs appreciated Respiratory: Lungs clear to auscultation bilaterally, No increased work of breathing Abdominal: non-tender, non-distended. Extremities: warm, well perfused. LE pitting edema bilaterally. Right foot with clean dressing, patient wearing offloading shoe. Results & Data Results & Data Vital Signs (Past 12 Hours) Vital Signs Temp Pulse Resp BP Pulse Ox O2 Del Method 05/14/23 07:13 36.6 C 59 L 20 175/66 H 96 Room Air 05/13/23 22:06 Room Air Resident Activity Tracking Resident Involvement: Resident Care Provided Care Provided: Adult Hospital Medicine (4) Pain in right knee Chronicity: acute Qualified Code(s): M25.561 - Pain in right knee (5) Diabetic foot ulcer Diabetes mellitus type: type 2 Diabetic foot ulcer location: heel Laterality: right Non-pressure ulcer stage: with fat layer exposed Qualified Code(s): E11.621 - Type 2 diabetes mellitus with foot ulcer; L97.412 - Non- pressure chronic ulcer of right heel and midfoot with fat layer exposed (9) Hypertension Hypertension type: primary hypertension Qualified Code(s): I10 - Essential (primary) hypertension (12) Anemia Anemia type: unspecified type Qualified Code(s): D64.9 - Anemia, unspecified
[2023-05-14 08:31] LABS: Albumin Globulin Ratio 0.7 (0.9-2); Albumin Level 2.8 gm/dl (3.4-5.0); Bilirubin,Total 0.3 mg/dl (0.2-1.0); Calcium 8.6 mg/dl (8.6-10.3); Creatinine Clr Calc Pharmacy 33.9 ml/min; Est GFR (African American) 22.2 ml/min; Est GFR (Non-African American) 19.1 ml/min; Globulin 4.2 gm/dl (2.5-4.0); Potassium 4.9 mmol/L (3.5-5.1)
[2023-05-14 08:36] LABS: Polychromasia 1+
[2023-05-15 06:54] LABS: Basophils # (auto) 0.04 K/uL (0.00-0.20); Basophils % (auto) 0.4 %; Eosinophils % (auto) 2.7 %; Hematocrit (blood only) 26.3 % (37.0-47.0); Hemoglobin 8.2 g/dl (12.0-16.0); Immature Granulocytes # (auto) 0.08 K/uL (0.01-0.20); Immature Granulocytes % (auto) 0.7 %; Lymphocytes # (auto) 2.84 K/uL (1.20-3.40); Lymphocytes % (auto) 25.9 %; Mean Corpuscular Hemoglobin 26.9 pg (25.0-34.0); Mean Corpuscular Hgb Conc 31.2 g/dL (32.0-36.0); Mean Corpuscular Volume 86.2 fL (80.0-100.0); Mean Platelet Volume 10.7 fL (9.4-12.4); Monocytes # (auto) 0.86 K/uL (0.11-0.59); Monocytes % (auto) 7.8 %; Neutrophils # (auto) 6.85 K/uL (1.40-6.50); Neutrophils % (auto) 62.5 %; Platelet Count 395 K/uL (130-400); RDW Coefficient of Variation 18.9 % (11.5-14.5); RDW Standard Deviation 58.7 fL (36.4-46.3); Red Blood Count 3.05 M/uL (4.20-5.40); White Blood Count 10.97 K/ul (4.8-10.8)
[2023-05-15 07:08] LABS: BUN Creatinine Ratio 16.2 (10-20); Calcium 8.6 mg/dl (8.6-10.3); Creatinine Clr Calc Pharmacy 33.7 ml/min
[2023-05-15] MEDS: LANTUS PER UNIT CHARGE SQ SCH ×2 (09:14→20:29)
--- NOTE | 2023-05-15 11:42 | Hospitalist Progress Note ---
Date of Service May 15, 2023 Assessment & Plan (1) Ambulatory dysfunction: (2) Pleural effusion, right: (3) Abnormal chest x-ray: (4) Pain in right knee: (5) Diabetic foot ulcer: (6) Asthma: (7) Uncontrolled diabetes mellitus with hyperglycemia, with long-term current use of insulin: (8) Hypercholesteremia: (9) Hypertension: (10) Morbid obesity with BMI of 50.0-59.9, adult: (11) GERD (gastroesophageal reflux disease): (12) Anemia: (13) Cystitis: (14) Ulcer of right heel: Plan Ms. Smith is a 63-year-old female who was admitted to our service after sustaining a mechanical fall at her home after she slipped in some urine. Acute on Chronic Kidney Disease -Patient with h/o CKD stage IV. Follows with nephrology as an outpatient. -Baseline Cr between 1.8-2.2. -AM Cr 2.59 - while still elevated above baseline, history, exam, and uptrending weights suggestive of likely fluid overload. Will trial Bumex 2mg once. Repeat BMP in AM. -Would also advise weekly-biweekly BMPs after discharge to monitor renal parameters. Right Foot Heel Ulcer - Chronic, since 06/2022. - Offloading shoe for her right foot ordered - CRP elevated at 3.92 (was <0.50 on 03/19/23). ESR elevated at >130 (was 86 on 03/19/23). MRI showing osteitis but no osteomyelitis. - Wound care consulted, appreciate recs: - Cleanse with saline, cover with adaptic touch, then Aquacel Ag, ABD and secure with large kerlix. Change daily. Offloading shoe when foot contacts floor. - Patient follows with wound care center as an outpatient, will need to be seen for follow up after discharge Cystitis - Resolved - Patient with UA consistent with urinary tract infection and urine culture with pansensitive proteus - 7 day course of Keflex completed. Ambulatory dysfunction -Ambulatory dysfunction may be secondary to morbid obesity, previous orthopedic issues -Hip, knee, and right ankle x-rays negative for fractures. -Continue pain management with IV Tylenol 1 g and tramadol as needed. -PT and OT consulted, updated evals documented -Anticipate discharge to SNF, CM following. Constipation- Resolved - Continue scheduled Miralax and encourage increased oral hydration. Chronic anemia -Chronic issue for which patient has received iron transfusion and is on home iron supplements -AM Hgb 8.2, patient asx, continue to monitor DM-II -Hemoglobin A1c 7.9%. -Due to recurrent AM hypoglycemia, will lower Lantus to 12 units BID -Placed on Accu-Cheks with NovoLog SSI, correction factor/carb ratio loosened due to hypoglycemia HFpEF -Suspect she is progressing towards fluid overload due to holding of Bumex for several days -Low-sodium diet -Will try one-time dose of Bumex 2mg, assess for change in sx and monitor with AM labs -Will continue monitoring fluid status. Hypothyroidism -Continue home Synthroid Asthma -Continue home inhalers Dispo: anticipate discharge to SNF Diet: Low sodium, HH, DM2 VTE ppx: Heparin Admission and Anticipated Discharge Date Admission Date: May 04, 2023 Supervising Physician Co-Signing Physician Notes Attending Physician Supervision Note: I independently interviewed and examined the patient and verified the parson history and physical, reviewed labs and image studies and agree with findings and care plan noted above. Was hypoglycemic this am. Vitals reviewed. Otherwise in NAD sitting upright in chair. Abdomen soft and nontender. Right lower extremity wound with overlying dressing in place that is clean dry and intact. Nonlabored breathing. Trace pedal edema PERLITA with CKD IV - Creatinine now at baseline range. Encouraging p.o. fluid intake. resume bumex 3/5 - will monitor renal function. Foot ulcer MRI with no Osteomyelitis. continue local wound care. continue antibiotics for superficial coverage. Boots to offload weight. Anemia, microcytic - follow periodically. replacing Fe HFpEF - Remains Euvolemic. resumed home bumex. follow renal function. DMII - A1c 7.9%. hypoglycemic in am. lantus dose decreased. tighten carb coverage since periprandial readings high. Constipationimproving, continue bowel regimen and encourage oral hydration BMI 66 - outpatient discussion about weight mx. Fall in the setting of ambulatory dysfunction - PT/OT consult - rehab / SNF for rehabinsurance Denied rehabworking on SNF, stable when bed available Otherwise care as above SNF when bed available Subjective Patient was evaluated at bedside this morning, sitting up in no apparent distress. Notes new onset orthopnea compared to yesterday, also increased dyspnea on exertion in addition to ongoing LE swelling. Denies chest pain. Denies pain at site of ulcer. Notified by nurse this AM regarding low blood glucose, patient given additional carbohydrates with subsequent correction on recheck. Review of Systems Review of Systems: as per HPI Physical Exam Physical Exam: General: Alert and oriented. No acute distress Cardiac: Regular rate and rhythm, no murmurs appreciated. +JVD Respiratory: Lungs clear to auscultation bilaterally, no crackles appreciated. No increased work of breathing at rest Abdominal: non-tender, non-distended. Extremities: warm, well perfused. LE pitting edema bilaterally. Right foot with clean dressing, patient wearing offloading shoe. Results & Data Results & Data Vital Signs (Past 12 Hours) Vital Signs Temp Pulse Resp BP Pulse Ox O2 Del Method 05/15/23 07:35 Room Air 05/15/23 07:19 36.3 C L 61 16 156/66 H 91 Room Air Resident Activity Tracking Resident Involvement: Resident Care Provided Care Provided: Adult Hospital Medicine (4) Pain in right knee Chronicity: acute Qualified Code(s): M25.561 - Pain in right knee (5) Diabetic foot ulcer Diabetes mellitus type: type 2 Diabetic foot ulcer location: heel Laterality: right Non-pressure ulcer stage: with fat layer exposed Qualified Code(s): E11.621 - Type 2 diabetes mellitus with foot ulcer; L97.412 - Non- pressure chronic ulcer of right heel and midfoot with fat layer exposed (9) Hypertension Hypertension type: primary hypertension Qualified Code(s): I10 - Essential (primary) hypertension (12) Anemia Anemia type: unspecified type Qualified Code(s): D64.9 - Anemia, unspecified
[2023-05-15] MEDS: BUMETANIDE 1 MG TAB PO ONE (11:49)
[2023-05-15] MEDS: ALBUTEROL HFA 8 GM INHALER INH PRN (16:54)
[2023-05-15] MEDS: MELATONIN 3 MG TAB PO PRN (20:41)
--- NOTE | 2023-05-16 07:37 | Hospitalist Progress Note ---
Date of Service May 16, 2023 Assessment & Plan (1) Ambulatory dysfunction: (2) Pleural effusion, right: (3) Abnormal chest x-ray: (4) Pain in right knee: (5) Diabetic foot ulcer: (6) Asthma: (7) Uncontrolled diabetes mellitus with hyperglycemia, with long-term current use of insulin: (8) Hypercholesteremia: (9) Hypertension: (10) Morbid obesity with BMI of 50.0-59.9, adult: (11) GERD (gastroesophageal reflux disease): (12) Anemia: (13) Cystitis: (14) Ulcer of right heel: Plan Ms. Smith is a 63-year-old female who was admitted to our service after sustaining a mechanical fall at her home after she slipped in some urine. Acute on Chronic Kidney Disease -Patient with h/o CKD stage IV. Follows with nephrology as an outpatient. -Baseline Cr between 1.8-2.2. -AM Cr 2.53 - stable after Bumex dose yesterday, restart daily Bumex 2mg. Repeat BMP in AM. Right Foot Heel Ulcer - Chronic, since 06/2022. - Offloading shoe for her right foot ordered - CRP elevated at 3.92 (was <0.50 on 03/19/23). ESR elevated at >130 (was 86 on 03/19/23). MRI showing osteitis but no osteomyelitis. - Wound care consulted, appreciate recs: - Cleanse with saline, cover with adaptic touch, then Aquacel Ag, ABD and secure with large kerlix. Change daily. Offloading shoe when foot contacts floor. - Patient follows with wound care center as an outpatient, will need to be seen for follow up after discharge Cystitis - Resolved - Patient with UA consistent with urinary tract infection and urine culture with pansensitive proteus - 7 day course of Keflex completed. Ambulatory dysfunction -Ambulatory dysfunction may be secondary to morbid obesity, previous orthopedic issues -Hip, knee, and right ankle x-rays negative for fractures. -Continue pain management with IV Tylenol 1 g and tramadol as needed. -PT and OT consulted, updated evals documented -Anticipate discharge to SNF, CM following, placement pending. Constipation- Resolved - Continue scheduled Miralax and encourage increased oral hydration. Chronic anemia -Chronic issue for which patient has received iron transfusion and is on home iron supplements -Hgb stable, patient asx, continue to monitor DM-II -Hemoglobin A1c 7.9%. -Continue Lantus 12 units BID -Placed on Accu-Cheks with NovoLog SSI, continue. HFpEF -Improving with diuresis, resume daily Bumex 2mg and AM BMP for renal monitoring. -Low-sodium diet -Will continue monitoring fluid status. Hypothyroidism -Continue home Synthroid Asthma -Continue home inhalers Dispo: anticipate discharge to SNF Diet: Low sodium, HH, DM2 VTE ppx: Heparin Admission and Anticipated Discharge Date Admission Date: May 04, 2023 Supervising Physician Co-Signing Physician Notes Attending Physician Supervision Note: I independently interviewed and examined the patient and verified the parson history and physical, reviewed labs and image studies and agree with findings and care plan noted above. No new concerns. Vitals reviewed. Nonlabored breathing. Foot ulcer MRI with no Osteomyelitis. continue local wound care. continue antibiotics for superficial coverage. Boots to offload weight. PERLITA with CKD IV - Creatinine now at baseline range. resumed bumex 3/5 - renal function stable. HFpEF - Remains Euvolemic. resumed home bumex. follow renal function. DMII - A1c 7.9%. hypoglycemic in am. lantus dose decreased. tighten carb coverage since periprandial readings high. Anemia, microcytic - follow periodically. replacing Fe Constipationimproving, continue bowel regimen and encourage oral hydration BMI 66 - outpatient discussion about weight mx. Fall in the setting of ambulatory dysfunction - PT/OT consult - rehab / SNF for rehabinsurance Denied rehabworking on SNF, stable when bed available Otherwise care as above Subjective Patient was evaluated at bedside this morning, resting in bed in no apparent distress. Notes some improvement in orthopnea but still has some SOB and dyspnea on exertion in addition to ongoing LE swelling. Denies chest pain. Denies pain at site of ulcer. Review of Systems Review of Systems: as per HPI Physical Exam Physical Exam: General: Alert and oriented. No acute distress Cardiac: Regular rate and rhythm, no murmurs appreciated. No JVD appreciated. Respiratory: Lungs clear to auscultation bilaterally, no crackles appreciated. No increased work of breathing at rest Abdominal: non-tender, non-distended. Extremities: warm, well perfused. LE pitting edema bilaterally. Right foot with clean dressing, patient wearing offloading shoe. Results & Data Results & Data Vital Signs (Past 12 Hours) Vital Signs Temp Pulse Resp BP Pulse Ox O2 Del Method 05/16/23 07:18 36.3 C L 58 L 16 155/69 H 95 Room Air 05/15/23 20:30 Room Air Resident Activity Tracking Resident Involvement: Resident Care Provided Care Provided: Adult [facility] Medicine (4) Pain in right knee Chronicity: acute Qualified Code(s): M25.561 - Pain in right knee (5) Diabetic foot ulcer Diabetes mellitus type: type 2 Diabetic foot ulcer location: heel Laterality: right Non-pressure ulcer stage: with fat layer exposed Qualified Code(s): E11.621 - Type 2 diabetes mellitus with foot ulcer; L97.412 - Non- pressure chronic ulcer of right heel and midfoot with fat layer exposed (9) Hypertension Hypertension type: primary hypertension Qualified Code(s): I10 - Essential (primary) hypertension (12) Anemia Anemia type: unspecified type Qualified Code(s): D64.9 - Anemia, unspecified
[2023-05-16 08:02] LABS: Calcium 8.4 mg/dl (8.6-10.3); Potassium 4.9 mmol/L (3.5-5.1)
[2023-05-16 08:08] LABS: BUN Creatinine Ratio 16.2 (10-20); Creatinine Clr Calc Pharmacy 34.5 ml/min; Est GFR (African American) 22.6 ml/min; Est GFR (Non-African American) 19.5 ml/min
[2023-05-16] MEDS: BUMETANIDE 1 MG TAB PO ONE (14:27)
--- NOTE | 2023-05-17 06:54 | Hospitalist Progress Note ---
Date of Service May 17, 2023 Assessment & Plan (1) Ambulatory dysfunction: (2) Pleural effusion, right: (3) Abnormal chest x-ray: (4) Pain in right knee: (5) Diabetic foot ulcer: (6) Asthma: (7) Uncontrolled diabetes mellitus with hyperglycemia, with long-term current use of insulin: (8) Hypercholesteremia: (9) Hypertension: (10) Morbid obesity with BMI of 50.0-59.9, adult: (11) GERD (gastroesophageal reflux disease): (12) Anemia: (13) Cystitis: (14) Ulcer of right heel: Plan Ms. Smith is a 63-year-old female who was admitted to our service after sustaining a mechanical fall at her home after she slipped in some urine. Acute on Chronic Kidney Disease -Patient with h/o CKD stage IV. Follows with nephrology as an outpatient. -Baseline Cr between 1.8-2.2. -AM Cr 2.48 - Continue daily Bumex 2mg. Repeat BMP in AM. Right Foot Heel Ulcer - Chronic, since 06/2022. - Offloading shoe for her right foot ordered - CRP elevated at 3.92 (was <0.50 on 03/19/23). ESR elevated at >130 (was 86 on 03/19/23). MRI showing osteitis but no osteomyelitis. - Wound care consulted, appreciate recs: - Cleanse with saline, cover with adaptic touch, then Aquacel Ag, ABD and secure with large kerlix. Change daily. Offloading shoe when foot contacts floor. - Patient follows with wound care center as an outpatient, will need to be seen for follow up after discharge AMS, Acute: - Patient with acute alteration in mental status with associated pain in LUE - Unremarkable neuro exam - CT head negative for acute pathology, will continue to monitor. Cystitis - Resolved - Patient with UA consistent with urinary tract infection and urine culture with pansensitive proteus - 7 day course of Keflex completed. Ambulatory dysfunction -Ambulatory dysfunction may be secondary to morbid obesity, previous orthopedic issues -Hip, knee, and right ankle x-rays negative for fractures. -Continue pain management with IV Tylenol 1 g and tramadol as needed. -PT and OT consulted, updated evals documented -Anticipate discharge to SNF, CM following, placement pending. Constipation- Resolved - Continue scheduled Miralax and encourage increased oral hydration. Chronic anemia -Chronic issue for which patient has received iron transfusion and is on home iron supplements -Hgb stable, patient asx, continue to monitor DM-II -Hemoglobin A1c 7.9%. -Continue Lantus 12 units BID -Placed on Accu-Cheks with NovoLog SSI, continue. HFpEF -Improving with diuresis, resume daily Bumex 2mg and AM BMP for renal monitoring. -Low-sodium diet -Will continue monitoring fluid status. Hypothyroidism -Continue home Synthroid Asthma -Continue home inhalers Dispo: anticipate discharge to SNF Diet: Low sodium, HH, DM2 VTE ppx: Heparin Admission and Anticipated Discharge Date Admission Date: May 04, 2023 Supervising Physician Co-Signing Physician Notes Attending Physician Supervision Note: I independently interviewed and examined the patient and verified the parson history and physical, reviewed labs and image studies and agree with findings and care plan noted above. sleepy this morning. reported feeling drowsy to PT. Vitals reviewed. Nonlabored breathing. Excessive Drowsiness - no focal signs - stat CT head negative. continue to [facility]. Foot ulcer MRI with no Osteomyelitis. continue local wound care. continue antibiotics for superficial coverage. Boots to offload weight. PERLITA with CKD IV - Creatinine now at baseline range. resumed bumex 3/5 - renal function stable. HFpEF - Remains Euvolemic. resumed home bumex. follow renal function. DMII - A1c 7.9%. No further hypoglycemic events after adjusting insulin dose. Anemia, microcytic - follow periodically. replacing Fe Constipationimproving, continue bowel regimen and encourage oral hydration BMI 66 - outpatient discussion about weight mx. Fall in the setting of ambulatory dysfunction - PT/OT consult - rehab / SNF for rehabinsurance Denied rehabworking on SNF, stable when bed available consider goals of care discussion at some point. Subjective Patient was evaluated at bedside this morning, resting in bed in no apparent distress. Notes improvement in orthopnea, was able to lay flat in bed last night, but still has some SOB and dyspnea on exertion in addition to ongoing LE swelling. Denies chest pain. Denies pain at site of ulcer. Contacted by nurse in afternoon, patient noted to be mildly confused when working with PT, also concern for LUE swelling and pain. Vitals and blood glucose WNL - patient reevaluated at that time, AOx3 but demonstrated mild latency in replying to questions. Denies SOB, CP. Notes pain in left hand when making a fist. Neuro exam unremarkable. Review of Systems Review of Systems: as per HPI Physical Exam Physical Exam: General: Alert and oriented. No acute distress Cardiac: Regular rate and rhythm, no murmurs appreciated. No JVD appreciated. Respiratory: Lungs clear to auscultation bilaterally, no crackles appreciated. No increased work of breathing at rest Abdominal: non-tender, non-distended. Extremities: warm, well perfused. LE pitting edema bilaterally. Right foot with clean dressing, patient wearing offloading shoe. Results & Data Results & Data Vital Signs (Past 12 Hours) Vital Signs Temp Pulse Resp BP BP Pulse Ox O2 Del Method 05/16/23 22:44 36.6 C 58 L 18 118/76 94 Room Air 05/16/23 22:22 64 18 95 Room Air 05/16/23 22:13 Room Air 05/16/23 19:23 36.9 C 64 16 177/75 H 95 Room Air Resident Activity Tracking Resident Involvement: Resident Care Provided Care Provided: Adult Hospital Medicine (4) Pain in right knee Chronicity: acute Qualified Code(s): M25.561 - Pain in right knee (5) Diabetic foot ulcer Diabetes mellitus type: type 2 Diabetic foot ulcer location: heel Laterality: right Non-pressure ulcer stage: with fat layer exposed Qualified Code(s): E11.621 - Type 2 diabetes mellitus with foot ulcer; L97.412 - Non- pressure chronic ulcer of right heel and midfoot with fat layer exposed (9) Hypertension Hypertension type: primary hypertension Qualified Code(s): I10 - Essential (primary) hypertension (12) Anemia Anemia type: unspecified type Qualified Code(s): D64.9 - Anemia, unspecified
[2023-05-17 07:09] LABS: BUN Creatinine Ratio 16.1 (10-20); Calcium 8.6 mg/dl (8.6-10.3); Creatinine Clr Calc Pharmacy 35.2 ml/min; Est GFR (African American) 23.2 ml/min; Potassium 4.8 mmol/L (3.5-5.1)
--- NOTE | 2023-05-17 14:03 | CT Scan Report ---
CT SCAN OF THE BRAIN WITHOUT IV CONTRAST CLINICAL HISTORY: Change in mental status COMPARISON STUDY: CT of the brain dated 04/10/2023. TECHNIQUE: Unenhanced axial CT scan of the brain is performed from the vertex to the skull base. A do se lowering technique was utilized adhering to the principles of ALARA. The examination is degraded b y motion artifact. CT DOSE: 602.38 mGy.cm FINDINGS: Brain parenchyma: There is age-related involutional change noting mild subcortical and periventricula r microangiopathic disease. There is no hemorrhage, mass effect, or evidence of acute territorial isc hemia by CT criteria. Alegria-white matter differentiation is preserved. No extra-axial fluid collection is seen. Ventricles, sulci, cisterns: Prominent secondary to involutional change. Intracranial vasculature: There is atherosclerotic calcification of the cavernous carotid and vertebr al arteries. Calvarium: Unremarkable. Sinuses and mastoids: The visualized paranasal sinuses are clear. The mastoid air cells are well pneu matized. Orbits: The bony orbits are grossly intact. IMPRESSION: There is no hemorrhage, mass effect, or evidence of acute territorial ischemia by CT césar lopez. ACT 112: Negative or not required by law. Electronically signed by: Chilango Vora M.D. 05/17/2023 2:02 PM
[2023-05-18 07:11] LABS: BUN Creatinine Ratio 16.7 (10-20); Calcium 8.8 mg/dl (8.6-10.3); Creatinine Clr Calc Pharmacy 36.2 ml/min; Est GFR (African American) 24.2 ml/min; Est GFR (Non-African American) 20.9 ml/min; Potassium 4.9 mmol/L (3.5-5.1)
--- NOTE | 2023-05-18 07:30 | Hospitalist Progress Note ---
Date of Service May 18, 2023 Assessment & Plan (1) Ambulatory dysfunction: (2) Pleural effusion, right: (3) Abnormal chest x-ray: (4) Pain in right knee: (5) Diabetic foot ulcer: (6) Asthma: (7) Uncontrolled diabetes mellitus with hyperglycemia, with long-term current use of insulin: (8) Hypercholesteremia: (9) Hypertension: (10) Morbid obesity with BMI of 50.0-59.9, adult: (11) GERD (gastroesophageal reflux disease): (12) Anemia: (13) Cystitis: (14) Ulcer of right heel: Plan Ms. Smith is a 63-year-old female who was admitted to our service after sustaining a mechanical fall at her home after she slipped in some urine. Acute on Chronic Kidney Disease -Patient with h/o CKD stage IV. Follows with nephrology as an outpatient. -Baseline Cr between 1.8-2.2. -AM Cr 2.39 - Continue daily Bumex 2mg. Repeat BMP in AM. Right Foot Heel Ulcer - Chronic, since 06/2022. - Offloading shoe for her right foot ordered - CRP elevated at 3.92 (was <0.50 on 03/19/23). ESR elevated at >130 (was 86 on 03/19/23). MRI showing osteitis but no osteomyelitis. - Wound care consulted, appreciate recs: - Cleanse with saline, cover with adaptic touch, then Aquacel Ag, ABD and secure with large kerlix. Change daily. Offloading shoe when foot contacts floor. - Patient follows with wound care center as an outpatient, will need to be seen for follow up after discharge LUE Swelling: - Improved compared to yesterday but still with pain on dorsum of left hand - DVT r/o - will order venous US LUE AMS, Acute - Resolved: - Patient with acute alteration in mental status with associated pain in LUE 3/7 - Unremarkable neuro exam - CT head negative for acute pathology, will continue to monitor. Cystitis - Resolved - Patient with UA consistent with urinary tract infection and urine culture with pansensitive proteus - 7 day course of Keflex completed. Ambulatory dysfunction -Ambulatory dysfunction may be secondary to morbid obesity, previous orthopedic issues -Hip, knee, and right ankle x-rays negative for fractures. -Continue pain management with IV Tylenol 1 g and tramadol as needed. -PT and OT consulted, recommending rehab -Anticipate discharge to SNF, CM following, placement pending. Constipation- Resolved - Continue scheduled Miralax and encourage increased oral hydration. Chronic anemia -Chronic issue for which patient has received iron transfusion and is on home iron supplements -Hgb stable, patient asx, continue to monitor DM-II -Hemoglobin A1c 7.9%. -Continue Lantus 12 units BID -Placed on Accu-Cheks with NovoLog SSI, continue. HFpEF -Improving with diuresis, resume daily Bumex 2mg and AM BMP for renal monitoring. -Low-sodium diet -Will continue monitoring fluid status. Hypothyroidism -Continue home Synthroid Asthma -Continue home inhalers Dispo: anticipate discharge to SNF, CM following, placement pending Diet: Low sodium, HH, DM2 VTE ppx: Heparin Admission and Anticipated Discharge Date Admission Date: May 04, 2023 Supervising Physician Co-Signing Physician Notes Attending Physician Supervision Note: I independently interviewed and examined the patient and verified the parson history and physical, reviewed labs and image studies and agree with findings and care plan noted above. again sleepy this morning but more responsive and able to communicate. didn't sleep last night. reached by her pcp - her advocate concerned about her feeling anxious and depression. patient did endorse these symptoms. has been on lexapro before. Vitals reviewed. Nonlabored breathing. Excessive Drowsiness - no focal signs - stat CT head negative. continue to monitor. -sec to night time awakening from anxiety - start lexapro and vistaril at night. Foot ulcer MRI with no Osteomyelitis. continue local wound care. continue antibiotics for superficial coverage. Boots to offload weight. PERLITA with CKD IV - Creatinine now at baseline range. resumed bumex 3/5 - renal function stable. HFpEF - Remains Euvolemic. resumed home bumex. follow renal function. DMII - A1c 7.9%. No further hypoglycemic events after adjusting insulin dose. Anemia, microcytic - follow periodically. replacing Fe Constipationcontinue bowel regimen BMI 66 - outpatient discussion about weight mx. Fall in the setting of ambulatory dysfunction - PT/OT consult - rehab / SNF for rehabinsurance Denied rehabworking on SNF, stable when bed available consider goals of care discussion at some point. Subjective Patient was evaluated at bedside this morning, resting in bed in no apparent distress. Notes improvement in shortness of breath. Regarding new sx that developed yesterday, patient states that she is feeling more lucid today but is feeling tired/sleepy, attributes this to poor sleep last night. Hand swelling improving, still pain when making a fist. Denies chest pain. Denies pain at site of ulcer. Review of Systems Review of Systems: as per HPI Physical Exam Physical Exam: General: Alert and oriented. No acute distress Cardiac: Regular rate and rhythm, no murmurs appreciated. No JVD appreciated. Respiratory: Lungs clear to auscultation bilaterally, no crackles appreciated. No increased work of breathing at rest Abdominal: non-tender, non-distended. Extremities: warm, well perfused. LE pitting edema bilaterally. Right foot with clean dressing, patient wearing offloading shoe. UE distal pulses 2+ bilatera lly, site of pain without erythema, mildly swollen. Results & Data Results & Data Vital Signs (Past 12 Hours) Vital Signs Pulse Resp Pulse Ox O2 Del Method O2 Flow Rate 05/17/23 20:48 Nasal Cannula 2 05/17/23 19:57 89 18 90 Room Air Resident Activity Tracking Resident Involvement: Resident Care Provided Care Provided: Adult Hospital Medicine (4) Pain in right knee Chronicity: acute Qualified Code(s): M25.561 - Pain in right knee (5) Diabetic foot ulcer Diabetes mellitus type: type 2 Diabetic foot ulcer location: heel Laterality: right Non-pressure ulcer stage: with fat layer exposed Qualified Code(s): E11.621 - Type 2 diabetes mellitus with foot ulcer; L97.412 - Non- pressure chronic ulcer of right heel and midfoot with fat layer exposed (9) Hypertension Hypertension type: primary hypertension Qualified Code(s): I10 - Essential (primary) hypertension (12) Anemia Anemia type: unspecified type Qualified Code(s): D64.9 - Anemia, unspecified
[2023-05-18] MEDS: ALBUTEROL HFA 8 GM INHALER INH SCH (20:05)
[2023-05-18] MEDS: IPRATROPIUM BROMIDE HFA INHALER INH SCH (20:06)
--- NOTE | 2023-05-19 06:44 | Hospitalist Progress Note ---
Date of Service May 19, 2023 Assessment & Plan (1) Ambulatory dysfunction: (2) Pleural effusion, right: (3) Abnormal chest x-ray: (4) Pain in right knee: (5) Diabetic foot ulcer: (6) Asthma: (7) Uncontrolled diabetes mellitus with hyperglycemia, with long-term current use of insulin: (8) Hypercholesteremia: (9) Hypertension: (10) Morbid obesity with BMI of 50.0-59.9, adult: (11) GERD (gastroesophageal reflux disease): (12) Anemia: (13) Cystitis: (14) Ulcer of right heel: Plan Ms. Smith is a 63-year-old female who was admitted to our service after sustaining a mechanical fall at her home after she slipped in some urine. Acute on Chronic Kidney Disease -Patient with h/o CKD stage IV. Follows with nephrology as an outpatient. -Baseline Cr between 1.8-2.2. -AM Cr 2.30 - Continue daily Bumex 2mg. Repeat BMP in AM. Right Foot Heel Ulcer - Chronic, since 06/2022. - Offloading shoe for her right foot ordered - CRP elevated at 3.92 (was <0.50 on 03/19/23). ESR elevated at >130 (was 86 on 03/19/23). MRI showing osteitis but no osteomyelitis. - Wound care consulted, appreciate recs: - Cleanse with saline, cover with adaptic touch, then Aquacel Ag, ABD and secure with large kerlix. Change daily. Offloading shoe when foot contacts floor. - Patient follows with wound care center as an outpatient, will need to be seen for follow up after discharge LUE Swelling: - Swelling gradually improving but still with pain on dorsum of left hand - DVT r/o - US LUE negative for deep or superficial venous thrombosis - Continue to monitor AMS, Acute - Resolved: - Patient with acute alteration in mental status with associated pain in LUE 3/7 - Unremarkable neuro exam - CT head negative for acute pathology, will continue to monitor. Cystitis - Resolved - Patient with UA consistent with urinary tract infection and urine culture with pansensitive proteus - 7 day course of Keflex completed. Ambulatory dysfunction -Ambulatory dysfunction may be secondary to morbid obesity, previous orthopedic issues -Hip, knee, and right ankle x-rays negative for fractures. -Continue pain management with IV Tylenol 1 g and tramadol as needed. -PT and OT consulted, recommending rehab -Anticipate discharge to [facility], following, placement pending. Constipation- Resolved - Continue scheduled Miralax and encourage increased oral hydration. Chronic anemia -Chronic issue for which patient has received iron transfusion and is on home iron supplements -Hgb stable, patient asx, continue to monitor DM-II -Hemoglobin A1c 7.9%. -Continue Lantus 12 units BID -Placed on Accu-Cheks with NovoLog SSI, continue. HFpEF -Improving with diuresis, resume daily Bumex 2mg and AM BMP for renal monitoring. -Will continue monitoring fluid status. Hypothyroidism -Continue home Synthroid Asthma -Continue home inhalers Dispo: anticipate discharge to [facility], following, placement pending Diet: HH, DM2 VTE ppx: Heparin Admission and Anticipated Discharge Date Admission Date: May 04, 2023 Supervising Physician Co-Signing Physician Notes Attending Physician Supervision Note: I independently interviewed and examined the patient and verified the parson history and physical, reviewed labs and image studies and agree with findings and care plan noted above. more responsive but still in bed this am. slept well overnight. went to restroom and got off balance due to her boot and fell - mostly hit the shoulder. Vitals reviewed. Nonlabored breathing. Excessive sleepiness with disturbed night time sleep sec to anxiety/depression - CT head negative. - started lexapro and vistaril at night. Foot ulcer MRI with no Osteomyelitis. continue local wound care. continue antibiotics for superficial coverage. Boots to offload weight. PERLITA with CKD IV - Creatinine now at baseline range. resumed bumex 3/5 - renal function stable. HFpEF - Remains Euvolemic. resumed home bumex. follow renal function. DMII - A1c 7.9%. continue current meds. Anemia, microcytic - follow periodically. replacing Fe Constipationcontinue bowel regimen BMI 66 - outpatient discussion about weight mx. Fall in the setting of ambulatory dysfunction - PT/OT consult - Case mx working on placement. consider goals of care discussion at some point. Subjective Patient was evaluated at bedside this morning, resting in bed in no apparent distress. Notes improvement in shortness of breath with increased frequency of respiratory meds. Hand swelling continue to improve, still pain when making a fist. Denies chest pain. Denies pain at site of ulcer. Review of Systems Review of Systems: as per HPI Physical Exam Physical Exam: General: Alert and oriented. No acute distress Cardiac: Regular rate and rhythm, no murmurs appreciated. No JVD appreciated. Respiratory: Lungs clear to auscultation bilaterally, no crackles appreciated. No increased work of breathing at rest Abdominal: non-tender, non-distended. Extremities: warm, well perfused. LE pitting edema bilaterally. Right foot with clean dressing, patient wearing offloading shoe. UE distal pulses 2+ bilaterally, site of pain without erythema, mildly swollen. Results & Data Results & Data Vital Signs (Past 12 Hours) Vital Signs Temp Pulse Resp BP Pulse Ox O2 Del Method O2 Flow Rate 05/19/23 03:26 60 18 93 Nasal Cannula 2 05/18/23 23:59 67 18 92 Nasal Cannula 2 05/18/23 21:30 176/71 H 05/18/23 20:50 36.6 C 60 16 180/71 H 94 Nasal Cannula 2 05/18/23 20:07 64 18 97 Nasal Cannula 2 05/18/23 19:25 Nasal Cannula 2 Resident Activity Tracking Resident Involvement: Resident Care Provided Care Provided: Adult Hospital Medicine (4) Pain in right knee Chronicity: acute Qualified Code(s): M25.561 - Pain in right knee (5) Diabetic foot ulcer Diabetes mellitus type: type 2 Diabetic foot ulcer location: heel Laterality: right Non-pressure ulcer stage: with fat layer exposed Qualified Code(s): E11.621 - Type 2 diabetes mellitus with foot ulcer; L97.412 - Non- pressure chronic ulcer of right heel and midfoot with fat layer exposed (9) Hypertension Hypertension type: primary hypertension Qualified Code(s): I10 - Essential (primary) hypertension (12) Anemia Anemia type: unspecified type Qualified Code(s): D64.9 - Anemia, unspecified
[2023-05-19 07:21] LABS: Calcium 8.4 mg/dl (8.6-10.3); Creatinine Clr Calc Pharmacy 37.5 ml/min; Est GFR (African American) 25.4 ml/min; Est GFR (Non-African American) 21.9 ml/min; Potassium 4.6 mmol/L (3.5-5.1)
[2023-05-19] MEDS: ESCITALOPRAM OXALATE 10 MG TAB PO SCH (08:32)
--- NOTE | 2023-05-19 09:18 | Ultrasound Report ---
US venous doppler UE LT CLINICAL HISTORY: r/o DVT PROCEDURE: Left upper extremity real-time compression venous ultrasound with Duplex and color Doppler imaging. Comparison: None available at the time of this dictation. FINDINGS/IMPRESSION: There is normal compressibility of the deep venous system from the forearm through the subclavian vei n. Normal vascular flow is currently identified. No evidence of superficial thrombosis is identified. ACT 112: Negative or not required by law. Electronically signed by: Juan Ramon Bejarano M.D. 05/19/2023 9:16 AM
--- NOTE | 2023-05-19 12:18 | Communication Note ---
Date of Service: May 19, 2023 Patient evaluated after mechanical fall, found laying comfortably in bed. While ambulating to bathroom with walker and nurse assistance, patient lost balance, which she attributes to offloading shoe, subsequently fell. Majority of impact affected shoulder but patient also notes hitting her head. Denies associated lightheadedness, syncope/presyncope prior to fall, denies LOC after fall. Exam notable for mild TTP diffusely throughout shoulder girdle, head without any signs of overt trauma. Patient mentating at baseline, no focal neuro deficits appreciated.
[2023-05-19] MEDS: ALBUTEROL HFA 8 GM INHALER INH SCH (18:15)
[2023-05-19] MEDS: IPRATROPIUM BROMIDE HFA INHALER INH SCH (18:16)
[2023-05-20] MEDS: hydrOXYzine HCl 25 MG TAB PO PRN (00:11)
[2023-05-20 06:49] LABS: BUN Creatinine Ratio 17.5 (10-20); Calcium 8.5 mg/dl (8.6-10.3); Creatinine Clr Calc Pharmacy 37.6 ml/min; Est GFR (African American) 25.5 ml/min; Potassium 4.9 mmol/L (3.5-5.1)
--- NOTE | 2023-05-20 08:09 | Hospitalist Progress Note ---
Date of Service May 20, 2023 Assessment & Plan (1) Ambulatory dysfunction: (2) Pleural effusion, right: (3) Abnormal chest x-ray: (4) Pain in right knee: (5) Diabetic foot ulcer: (6) Asthma: (7) Uncontrolled diabetes mellitus with hyperglycemia, with long-term current use of insulin: (8) Hypercholesteremia: (9) Hypertension: (10) Morbid obesity with BMI of 50.0-59.9, adult: (11) GERD (gastroesophageal reflux disease): (12) Anemia: (13) Cystitis: (14) Ulcer of right heel: Plan Ms. Smith is a 63-year-old female who was admitted to our service after sustaining a mechanical fall at her home after she slipped in some urine. Acute on Chronic Kidney Disease -Patient with h/o CKD stage IV. Follows with nephrology as an outpatient. -Baseline Cr between 1.8-2.2. -AM Cr 2.29 - Continue daily Bumex 2mg. Repeat BMP in AM. HFpEF - History and clinical presentation suggestive of excess fluid as cause for respiratory sx and extremity swelling. - Continue home dose, 2mg Bumex daily - Will give one time dose of 1mg Bumex, will reassess for change in sx/fluid status - AM BMP to monitor kidney function Anxiety/Depression/Insomnia: - Continue Lexapro 5mg daily - Discontinue Hydroxyzine as possibly causing AM grogginess, will try Lunesta for nighttime anxiety/insomnia. Right Foot Heel Ulcer - Chronic, since 06/2022. - Offloading shoe for her right foot ordered - CRP elevated at 3.92 (was <0.50 on 03/19/23). ESR elevated at >130 (was 86 on 03/19/23). MRI showing osteitis but no osteomyelitis. - Wound care consulted, appreciate recs: - Cleanse with saline, cover with adaptic touch, then Aquacel Ag, ABD and secure with large kerlix. Change daily. Offloading shoe when foot contacts floor. - Patient follows with wound care center as an outpatient, will need to be seen for follow up after discharge LUE Swelling: - DVT r/o - US LUE negative for deep or superficial venous thrombosis - Edema more pronounced today, likely more related to CHF/fluid overload AMS, Acute - Resolved: - Patient with acute alteration in mental status with associated pain in LUE 05/16 - Unremarkable neuro exam - CT head negative for acute pathology, will continue to monitor. Cystitis - Resolved - Patient with UA consistent with urinary tract infection and urine culture with pansensitive proteus - 7 day course of Keflex completed. Ambulatory dysfunction -Ambulatory dysfunction may be secondary to morbid obesity, previous orthopedic issues -Hip, knee, and right ankle x-rays negative for fractures. -Continue pain management with IV Tylenol 1 g and tramadol as needed. -PT and OT consulted, recommending rehab -Anticipate discharge to [facility], following, placement pending. Constipation- Resolved - Continue scheduled Miralax and encourage increased oral hydration. Chronic anemia -Chronic issue for which patient has received iron transfusion and is on home iron supplements -Hgb stable, patient asx, continue to monitor DM-II -Hemoglobin A1c 7.9%. -Continue Lantus 12 units BID -Placed on Accu-Cheks with NovoLog SSI, continue. Hypothyroidism -Continue home Synthroid Asthma -Continue home inhalers Dispo: anticipate discharge to [facility], following, placement pending Diet: HH, DM2 VTE ppx: Heparin Admission and Anticipated Discharge Date Admission Date: May 04, 2023 Supervising Physician Co-Signing Physician Notes Attending Physician Supervision Note: I independently interviewed and examined the patient and verified the parson history and physical, reviewed labs and image studies and agree with findings and care plan noted above. took a dose of vistaril at night. sleepy in the morning. Excessive sleepiness with disturbed night time sleep sec to anxiety/depression - CT head negative. - started lexapro and vistaril at night 05/18/23 - OOB as able HFpEF - Concern of fluid overload. Give spot dose 1mgs IV bumex now. PERLITA with CKD IV - Creatinine now at baseline range. resumed bumex 05/14 - renal function stable. Foot ulcer MRI with no Osteomyelitis. continue local wound care. continue antibiotics for superficial coverage. Boots to offload weight. DMII - A1c 7.9%. continue current meds. BMI 66 - outpatient discussion about weight mx. Fall in the setting of ambulatory dysfunction - PT/OT consult - Case mx working on placement. Subjective Patient was evaluated at bedside this morning, resting in bed in no apparent distress. Patient notes that she slept well after taking the hydroxyzine last night, this morning she appears slightly drowsy and with more notable brain fog. Patient aware of this, comments on difficulty of maintaining a coherent train of thought. Denies noticing side effects since starting Lexapro yesterday, no N/V/D. Does note that shortness of breath was worse yesterday since respiratory meds were scaled back to q6h. However, in describing her sx, she notes significant improvement with sitting up compared to lying down. Right hand swelling more pronounced today, still pain when making a fist. Denies chest pain. Denies pain at site of ulcer. Review of Systems Review of Systems: as per HPI Physical Exam Physical Exam: General: Alert and oriented. No acute distress Cardiac: Regular rate and rhythm, no murmurs appreciated. No JVD appreciated. Respiratory: Lungs clear to auscultation bilaterally, no crackles appreciated. No increased work of breathing at rest Abdominal: non-tender, non-distended. Extremities: warm, well perfused. LE pitting edema bilaterally. RUE also with pitting edema and TTP over dorsum of right hand. Right foot with clean dressing, patient wearing offloading shoe. UE distal pulses 2+ bilaterally, site of pain without erythema or excessive warmth to touch. Results & Data Results & Data Vital Signs (Past 12 Hours) Vital Signs Temp Pulse Resp BP BP Pulse Ox O2 Del Method 05/20/23 07:34 36.9 C 86 20 157/61 H 94 Nasal Cannula 05/20/23 07:28 64 20 98 Nasal Cannula 05/20/23 01:58 60 18 97 Nasal Cannula 05/19/23 20:00 Nasal Cannula 05/19/23 19:31 36.8 C 66 18 168/73 H 93 Nasal Cannula O2 Flow Rate 05/20/23 07:34 2 05/20/23 07:28 2 05/20/23 01:58 2 05/19/23 20:00 2 05/19/23 19:31 2 Resident Activity Tracking Resident Involvement: Resident Care Provided Care Provided: Adult Hospital Medicine (4) Pain in right knee Chronicity: acute Qualified Code(s): M25.561 - Pain in right knee (5) Diabetic foot ulcer Diabetes mellitus type: type 2 Diabetic foot ulcer location: heel Laterality: right Non-pressure ulcer stage: with fat layer exposed Qualified Code(s): E11.621 - Type 2 diabetes mellitus with foot ulcer; L97.412 - Non- pressure chronic ulcer of right heel and midfoot with fat layer exposed (9) Hypertension Hypertension type: primary hypertension Qualified Code(s): I10 - Essential (primary) hypertension (12) Anemia Anemia type: unspecified type Qualified Code(s): D64.9 - Anemia, unspecified
[2023-05-20] MEDS ORDERED: hydrOXYzine HCl 25 MG TAB PO PRN (10:02)
[2023-05-20] MEDS ORDERED: ESZOPICLONE 1 MG TAB PO PRN (11:11)
[2023-05-20] MEDS: BUMETANIDE 1 MG in SYRINGE 0 ML IV ONE (12:02)
--- NOTE | 2023-05-21 07:50 | Hospitalist Progress Note ---
Date of Service May 21, 2023 Assessment & Plan (1) Ambulatory dysfunction: (2) Pleural effusion, right: (3) Abnormal chest x-ray: (4) Pain in right knee: (5) Diabetic foot ulcer: (6) Asthma: (7) Uncontrolled diabetes mellitus with hyperglycemia, with long-term current use of insulin: (8) Hypercholesteremia: (9) Hypertension: (10) Morbid obesity with BMI of 50.0-59.9, adult: (11) GERD (gastroesophageal reflux disease): (12) Anemia: (13) Cystitis: (14) Ulcer of right heel: Plan Ms. Smith is a 63-year-old female who was admitted to our service after sustaining a mechanical fall at her home after she slipped in some urine. Acute on Chronic Kidney Disease -Patient with h/o CKD stage IV. Follows with nephrology as an outpatient. -Baseline Cr between 1.8-2.2. -AM Cr 2.46 - Continue daily Bumex 2mg but will hold any additional diuretics. Repeat BMP in AM. HFpEF - History and clinical presentation suggestive of fluctuation in fluid balance as cause for respiratory sx and extremity swelling. - Continue home dose, 2mg Bumex daily - AM BMP to monitor kidney function Anxiety/Depression/Insomnia: - Continue Lexapro 5mg daily Right Foot Heel Ulcer - Chronic, since 06/2022. - Offloading shoe for her right foot ordered - CRP elevated at 3.92 (was <0.50 on 03/19/23). ESR elevated at >130 (was 86 on 03/19/23). MRI showing osteitis but no osteomyelitis. - Wound care consulted, appreciate recs: - Cleanse with saline, cover with adaptic touch, then Aquacel Ag, ABD and secure with large kerlix. Change daily. Offloading shoe when foot contacts floor. - Patient follows with wound care center as an outpatient, will need to be seen for follow up after discharge LUE Swelling: - DVT r/o - US LUE negative for deep or superficial venous thrombosis AMS, Acute - Resolved: - Patient with acute alteration in mental status with associated pain in LUE 3/7 - Unremarkable neuro exam - CT head negative for acute pathology, will continue to monitor. Cystitis - Resolved - Patient with UA consistent with urinary tract infection and urine culture with pansensitive proteus - 7 day course of Keflex completed. Ambulatory dysfunction -Ambulatory dysfunction may be secondary to morbid obesity, previous orthopedic issues -Hip, knee, and right ankle x-rays negative for fractures. -Continue pain management with IV Tylenol 1 g and tramadol as needed. -PT and OT consulted, recommending rehab -Anticipate discharge to [facility], following, placement pending. Constipation- Resolved - Continue scheduled Miralax and encourage increased oral hydration. Chronic anemia -Chronic issue for which patient has received iron transfusion and is on home iron supplements -Hgb stable, patient asx, continue to monitor DM-II -Hemoglobin A1c 7.9%. -Continue Lantus 12 units BID -Placed on Accu-Cheks with NovoLog SSI, continue. Hypothyroidism -Continue home Synthroid Asthma -Continue home inhalers Dispo: anticipate discharge to [facility], following, placement pending Diet: HH, DM2 VTE ppx: Heparin Admission and Anticipated Discharge Date Admission Date: May 04, 2023 Supervising Physician Co-Signing Physician Notes I personally examined the patient and verified all parson points of history and exam, discussed case, and agree with decision making with Dr Heath no new issues, just waiting on placement vitals noted nad heent nc at mmm breathing unlabored no accessory muscles good effort skin no rashes no pallor or icterus neuro no focal deficits Excessive sleepiness with disturbed night time sleep sec to anxiety/depression - CT head negative. - started lexapro and vistaril at night 05/18/23 - OOB as able HFpEF - appearing euvolemic today PERLITA with CKD IV - Creatinine around baseline range. follow this balanced off HFpEF Foot ulcer MRI with no Osteomyelitis. continue local wound care. continue antibiotics for superficial coverage. Boots to offload weight. DMII - A1c 7.9%. continue current meds. BMI 66 - outpatient discussion about weight mx. Fall in the setting of ambulatory dysfunction - PT/OT consult - Case management working on placement. Subjective Patient was evaluated at bedside this morning, resting in bed in no apparent distress. Patient notes that she slept well last night, shortness of breath somewhat improved after extra dose of Bumex yesterday. Placement pending, no major changes. Review of Systems Review of Systems: as per HPI Physical Exam Physical Exam: General: Alert and oriented. No acute distress Cardiac: Regular rate and rhythm, no murmurs appreciated. No JVD appreciated. Respiratory: Lungs clear to auscultation bilaterally, no crackles appreciated. No increased work of breathing at rest Abdominal: non-tender, non-distended. Extremities: warm, well perfused. LE pitting edema bilaterally. RUE also with pitting edema and TTP over dorsum of right hand. Right foot with clean dressing, patient wearing offloading shoe. UE distal pulses 2+ bilaterally, site of pain without erythema or excessive warmth to touch. Results & Data Results & Data Vital Signs (Past 12 Hours) Vital Signs Pulse Resp Pulse Ox O2 Del Method O2 Flow Rate 05/21/23 01:04 65 18 96 Nasal Cannula 1 05/20/23 19:58 58 L 18 96 Nasal Cannula 1 Resident Activity Tracking Resident Involvement: Resident Care Provided Care Provided: Adult Hospital Medicine (4) Pain in right knee Chronicity: acute Qualified Code(s): M25.561 - Pain in right knee (5) Diabetic foot ulcer Diabetes mellitus type: type 2 Diabetic foot ulcer location: heel Laterality: right Non-pressure ulcer stage: with fat layer exposed Qualified Code(s): E11.621 - Type 2 diabetes mellitus with foot ulcer; L97.412 - Non- pressure chronic ulcer of right heel and midfoot with fat layer exposed (9) Hypertension Hypertension type: primary hypertension Qualified Code(s): I10 - Essential (primary) hypertension (12) Anemia Anemia type: unspecified type Qualified Code(s): D64.9 - Anemia, unspecified
[2023-05-21 08:19] LABS: Anion Gap 6 (3-11); BUN Creatinine Ratio 17.1 (10-20); Blood Urea Nitrogen 42 mg/dl (6-23); Calcium 8.5 mg/dl (8.6-10.3); Carbon Dioxide 23 mmol/L (21-32); Chloride 104 mmol/L (98-107); Creatinine Clr Calc Pharmacy 35.4 ml/min; Est GFR (African American) 23.4 ml/min; Est GFR (Non-African American) 20.2 ml/min; Glucose 137 mg/dl (70-99(Fasting)); Magnesium 2.3 mg/dl (1.7-2.4); Sodium 133 mmol/L (136-145)
--- NOTE | 2023-05-21 18:48 | Billing Data ---
Date of Service May 21, 2023 Coding Level of Care Code 94326 SUB INP/OBS CARE
--- NOTE | 2023-05-22 06:57 | Hospitalist Progress Note ---
Date of Service May 22, 2023 Assessment & Plan (1) Ambulatory dysfunction: (2) Pleural effusion, right: (3) Abnormal chest x-ray: (4) Pain in right knee: (5) Diabetic foot ulcer: (6) Asthma: (7) Uncontrolled diabetes mellitus with hyperglycemia, with long-term current use of insulin: (8) Hypercholesteremia: (9) Hypertension: (10) Morbid obesity with BMI of 50.0-59.9, adult: (11) GERD (gastroesophageal reflux disease): (12) Anemia: (13) Cystitis: (14) Ulcer of right heel: Plan Ms. Smith is a 63-year-old female who was admitted to our service after sustaining a mechanical fall at her home after she slipped in some urine. Acute on Chronic Kidney Disease -Patient with h/o CKD stage IV. Follows with nephrology as an outpatient. -Baseline Cr between 1.8-2.2. -AM Cr 2.34 - Continue daily Bumex 2mg but will hold any additional diuretics. Repeat BMP in AM. HFpEF - History and clinical presentation suggestive of fluctuation in fluid balance as cause for respiratory sx and extremity swelling. - Continue home dose, 2mg Bumex daily - AM BMP to monitor kidney function Anxiety/Depression/Insomnia: - Continue Lexapro 5mg daily Right Foot Heel Ulcer - Chronic, since 06/2022. - Offloading shoe for her right foot ordered - CRP elevated at 3.92 (was <0.50 on 03/19/23). ESR elevated at >130 (was 86 on 03/19/23). MRI showing osteitis but no osteomyelitis. - Wound care consulted, appreciate recs: - Cleanse with saline, cover with adaptic touch, then Aquacel Ag, ABD and secure with large kerlix. Change daily. Offloading shoe when foot contacts floor. - Patient follows with wound care center as an outpatient, will need to be seen for follow up after discharge LUE Swelling: - DVT r/o - US LUE negative for deep or superficial venous thrombosis AMS, Acute - Resolved: - Patient with acute alteration in mental status with associated pain in LUE 3/7 - Unremarkable neuro exam - CT head negative for acute pathology, will continue to monitor. Cystitis - Resolved - Patient with UA consistent with urinary tract infection and urine culture with pansensitive proteus - 7 day course of Keflex completed. Ambulatory dysfunction -Ambulatory dysfunction may be secondary to morbid obesity, previous orthopedic issues -Hip, knee, and right ankle x-rays negative for fractures. -Continue pain management with IV Tylenol 1 g and tramadol as needed. -PT and OT consulted, recommending rehab -Anticipate discharge to [facility], following, placement pending. Constipation- Resolved - Continue scheduled Miralax and encourage increased oral hydration. Chronic anemia -Chronic issue for which patient has received iron transfusion and is on home iron supplements -Hgb stable, patient asx, continue to monitor DM-II -Hemoglobin A1c 7.9%. -Continue Lantus 12 units BID -Placed on Accu-Cheks with NovoLog SSI, continue. Hypothyroidism -Continue home Synthroid Asthma -Continue home inhalers Dispo: anticipate discharge to [facility], following, placement pending Diet: HH, DM2 VTE ppx: Heparin Admission and Anticipated Discharge Date Admission Date: May 04, 2023 Supervising Physician Co-Signing Physician Notes I personally examined the patient and verified all parson points of history and exam, discussed case, and agree with decision making with Dr Heath no new issues, just waiting on placement sleeping comfortably vitals noted nad heent nc at mmm breathing unlabored no accessory muscles good effort skin no rashes no pallor or icterus neuro no focal deficits Excessive sleepiness with disturbed night time sleep sec to anxiety/depression - CT head negative. - started lexapro and vistaril at night 05/18/23 - OOB as able HFpEF - appearing euvolemic today PERLITA with CKD IV - Creatinine around baseline range. follow this balanced off HFpEF Foot ulcer MRI with no Osteomyelitis. continue local wound care. continue antibiotics for superficial coverage. Boots to offload weight. DMII - A1c 7.9%. continue current meds. BMI 66 - outpatient discussion about weight mx. Fall in the setting of ambulatory dysfunction - PT/OT consult - Case management working on placement. has been difficult Subjective Patient was evaluated at bedside this morning, resting in bed in no apparent distress. Patient notes that she slept well last night, shortness of breath overall improved. Placement pending, no major changes. Review of Systems Review of Systems: as per HPI Physical Exam Physical Exam: General: Alert and oriented. No acute distress Cardiac: Regular rate and rhythm, no murmurs appreciated. No JVD appreciated. Respiratory: Lungs clear to auscultation bilaterally, no crackles appreciated. No increased work of breathing at rest Abdominal: non-tender, non-distended. Extremities: warm, well perfused. LE pitting edema bilaterally. RUE also with pitting edema and TTP over dorsum of right hand. Right foot with clean dressing, patient wearing offloading shoe. UE distal pulses 2+ bilaterally, site of pain without erythema or excessive warmth to touch. Results & Data Results & Data Vital Signs (Past 12 Hours) Vital Signs Temp Pulse Resp BP Pulse Ox O2 Del Method O2 Flow Rate 05/22/23 00:00 18 97 Nasal Cannula 2 05/21/23 20:37 158/65 H 05/21/23 20:14 Nasal Cannula 2 05/21/23 20:09 36.7 C 61 14 184/69 H 96 Nasal Cannula 2 05/21/23 19:44 18 96 Nasal Cannula 2 Resident Activity Tracking Resident Involvement: Resident Care Provided Care Provided: Adult Hospital Medicine (4) Pain in right knee Chronicity: acute Qualified Code(s): M25.561 - Pain in right knee (5) Diabetic foot ulcer Diabetes mellitus type: type 2 Diabetic foot ulcer location: heel Laterality: right Non-pressure ulcer stage: with fat layer exposed Qualified Code(s): E11.621 - Type 2 diabetes mellitus with foot ulcer; L97.412 - Non- pressure chronic ulcer of right heel and midfoot with fat layer exposed (9) Hypertension Hypertension type: primary hypertension Qualified Code(s): I10 - Essential (primary) hypertension (12) Anemia Anemia type: unspecified type Qualified Code(s): D64.9 - Anemia, unspecified
[2023-05-22 10:30] LABS: BUN Creatinine Ratio 17.5 (10-20); Calcium 8.6 mg/dl (8.6-10.3); Creatinine Clr Calc Pharmacy 37.2 ml/min; Est GFR (African American) 24.8 ml/min; Est GFR (Non-African American) 21.4 ml/min; Magnesium 2.2 mg/dl (1.7-2.4); Potassium 4.8 mmol/L (3.5-5.1)
--- NOTE | 2023-05-22 16:59 | Billing Data ---
Date of Service May 22, 2023 Coding Level of Care Code 82104 SUB INP/OBS CARE
--- NOTE | 2023-05-23 07:49 | Hospitalist Progress Note ---
Date of Service May 23, 2023 Assessment & Plan (1) Ambulatory dysfunction: (2) Pleural effusion, right: (3) Abnormal chest x-ray: (4) Pain in right knee: (5) Diabetic foot ulcer: (6) Asthma: (7) Uncontrolled diabetes mellitus with hyperglycemia, with long-term current use of insulin: (8) Hypercholesteremia: (9) Hypertension: (10) Morbid obesity with BMI of 50.0-59.9, adult: (11) GERD (gastroesophageal reflux disease): (12) Anemia: (13) Cystitis: (14) Ulcer of right heel: Plan Ms. Smith is a 63-year-old female who was admitted to our service after sustaining a mechanical fall at her home after she slipped in some urine. Acute on Chronic Kidney Disease -Patient with h/o CKD stage IV. Follows with nephrology as an outpatient. -Baseline Cr between 1.8-2.2. -AM Cr 2.41 - Continue daily Bumex 2mg but will hold any additional diuretics. Repeat BMP in AM. HFpEF - History and clinical presentation suggestive of fluctuation in fluid balance as cause for respiratory sx and extremity swelling. - Continue home dose, 2mg Bumex daily - AM BMP to monitor kidney function Anxiety/Depression/Insomnia: - Continue Lexapro 5mg daily Right Foot Heel Ulcer - Chronic, since 06/2022. - Offloading shoe for her right foot ordered - CRP elevated at 3.92 (was <0.50 on 03/19/23). ESR elevated at >130 (was 86 on 03/19/23). MRI showing osteitis but no osteomyelitis. - Wound care consulted, appreciate recs: - Cleanse with saline, cover with adaptic touch, then Aquacel Ag, ABD and secure with large kerlix. Change daily. Offloading shoe when foot contacts floor. - Patient follows with wound care center as an outpatient, will need to be seen for follow up after discharge LUE Swelling: - DVT r/o - US LUE negative for deep or superficial venous thrombosis AMS, Acute - Resolved: - Patient with acute alteration in mental status with associated pain in LUE 3/7 - Unremarkable neuro exam - CT head negative for acute pathology, will continue to monitor. Cystitis - Resolved - Patient with UA consistent with urinary tract infection and urine culture with pansensitive proteus - 7 day course of Keflex completed. Ambulatory dysfunction -Ambulatory dysfunction may be secondary to morbid obesity, previous orthopedic issues -Hip, knee, and right ankle x-rays negative for fractures. -Continue pain management with IV Tylenol 1 g and tramadol as needed. -PT and OT consulted, recommending rehab -Anticipate discharge to [facility], following, placement pending. Constipation- Resolved - Continue scheduled Miralax and encourage increased oral hydration. Chronic anemia -Chronic issue for which patient has received iron transfusion and is on home iron supplements -Hgb stable, patient asx, continue to monitor DM-II -Hemoglobin A1c 7.9%. -Continue Lantus 12 units BID -Placed on Accu-Cheks with NovoLog SSI, continue. Hypothyroidism -Continue home Synthroid Asthma -Continue home inhalers Dispo: anticipate discharge to [facility], following, placement pending Diet: HH, DM2 VTE ppx: Heparin Admission and Anticipated Discharge Date Admission Date: May 04, 2023 Supervising Physician Co-Signing Physician Notes I personally examined the patient and verified all parson points of history and exam, discussed case, and agree with decision making with Dr Heath no new issues, No complaints. Awaiting placement. vitals noted nad heent nc at mmm breathing unlabored no accessory muscles good effort skin no rashes no pallor or icterus neuro no focal deficits Excessive sleepiness with disturbed night time sleep sec to anxiety/depression - CT head negative. - started lexapro and vistaril at night 05/18/23 - OOB as able HFpEF - appearing euvolemic today PERLITA with CKD IV - Creatinine around baseline range. follow this balanced off HFpEF Foot ulcer MRI with no Osteomyelitis. continue local wound care. continue antibiotics for superficial coverage. Boots to offload weight. DMII - A1c 7.9%. continue current meds. BMI 66 - outpatient discussion about weight mx. Fall in the setting of ambulatory dysfunction - PT/OT consult - Case management working on placement. Informed today that there is a good chance of disposition in the near future. Subjective Patient was evaluated at bedside this morning, resting in bed in no apparent distress. Patient notes that she slept well last night, shortness of breath overall improved. Tolerating Lexapro without adverse effects, deneis N/V?D. Placement pending, no major changes. Review of Systems Review of Systems: as per HPI Physical Exam Physical Exam: General: Alert and oriented. No acute distress Cardiac: Regular rate and rhythm, no murmurs appreciated. No JVD appreciated. Respiratory: Lungs clear to auscultation bilaterally, no crackles appreciated. No increased work of breathing at rest Abdominal: non-tender, non-distended. Extremities: warm, well perfused. LE pitting edema bilaterally. RUE also with pitting edema and TTP over dorsum of right hand. Right foot with clean dressing, patient wearing offloading shoe. UE distal pulses 2+ bilaterally, site of pain without erythema or excessive warmth to touch. Results & Data Results & Data Vital Signs (Past 12 Hours) Vital Signs Temp Pulse Resp BP Pulse Ox O2 Del Method O2 Flow Rate 05/23/23 07:42 59 L 18 99 Nasal Cannula 2 05/23/23 07:01 36.6 C 54 L 17 181/67 H 97 Room Air 05/23/23 00:52 86 18 96 Room Air 05/22/23 20:33 67 18 96 Room Air 05/22/23 19:56 Nasal Cannula 2 05/22/23 19:54 36.8 C 61 14 176/70 H 95 Nasal Cannula 2 Resident Activity Tracking Resident Involvement: Resident Care Provided Care Provided: Adult Hospital Medicine (4) Pain in right knee Chronicity: acute Qualified Code(s): M25.561 - Pain in right knee (5) Diabetic foot ulcer Diabetes mellitus type: type 2 Diabetic foot ulcer location: heel Laterality: right Non-pressure ulcer stage: with fat layer exposed Qualified Code(s): E11.621 - Type 2 diabetes mellitus with foot ulcer; L97.412 - Non- pressure chronic ulcer of right heel and midfoot with fat layer exposed (9) Hypertension Hypertension type: primary hypertension Qualified Code(s): I10 - Essential (primary) hypertension (12) Anemia Anemia type: unspecified type Qualified Code(s): D64.9 - Anemia, unspecified
[2023-05-23 09:36] LABS: Calcium 8.6 mg/dl (8.6-10.3); Creatinine Clr Calc Pharmacy 35.9 ml/min; Est GFR (Non-African American) 20.7 ml/min; Magnesium 2.3 mg/dl (1.7-2.4); Potassium 4.8 mmol/L (3.5-5.1)
--- NOTE | 2023-05-23 19:44 | Billing Data ---
Date of Service May 23, 2023 Coding Level of Care Code 38080 SUB INP/OBS CARE
[2023-05-24 06:41] LABS: BUN Creatinine Ratio 16.9 (10-20); Calcium 8.4 mg/dl (8.6-10.3); Creatinine Clr Calc Pharmacy 35.1 ml/min; Est GFR (African American) 23.2 ml/min; Potassium 4.7 mmol/L (3.5-5.1)
--- NOTE | 2023-05-24 15:25 | Discharge Summary ---
Date of Service May 24, 2023 Admission HPI Per Admitting Provider The patient is a 62-year-old female with a past medical history including CKD stage IV, ambulatory dysfunction, morbid obesity, right diabetic foot ulcer, asthma, HFpEF, uncontrolled diabetes mellitus on long-term insulin, history of metabolic encephalopathy, hypertension, hypercholesterolemia, anxiety, hypothyroidism, mixed hyperlipidemia and depression. The patient most recently been admitted to [facility] with a similar presentation from 04/10-04/12/2023. Due to her morbid obesity, and orthopedic issues, patient is at significant risk for complications living at home by herself. She has seen wound care for her right heel ulcer. Admission Exam Per Admitting Provider The patient is awake, alert and oriented 3, well developed and well nourished, normocephalic and atraumatic, lying in bed and in no acute distress. HEENT--PERRL, EOMI, mucous membranes and oropharynx normal. Neck--supple. No JVD. No bruits. Thyroid normal, trachea midline, no adenopathy. Heart--normal S1 and S2. No murmurs, rubs or gallops. Lungs--clear bilaterally, no respiratory distress, no accessory muscle use. Abdomen--normal bowel sounds and soft. Nontender. Nondistended. Morbidly obese Extremities--chronic lymphedema changes. Right heel wrapped with discharge noted in dressings Dermatologic--chronic lymphedema changes Neurologic--cranial nerves II through XII grossly intact. Rheumatologic--limited exam due to body habitus Psychiatric--normal affect. Principal Diagnosis Fall, ambulatory dysfunction Discharge Exam General: Alert and oriented. No acute distress Cardiac: Regular rate and rhythm, no murmurs appreciated. No JVD appreciated. Respiratory: Lungs clear to auscultation bilaterally, no crackles appreciated. No increased work of breathing at rest Abdominal: non-tender, non-distended. Extremities: warm, well perfused. LE pitting edema bilaterally. RUE also with pitting edema and TTP over dorsum of right hand. Right foot with clean dressing, patient wearing offloading shoe. UE distal pulses 2+ bilaterally, site of pain without erythema or excessive warmth to touch. Discharge Data Allergies Allergy/AdvReac Type Severity Reaction Status Date / Time amoxicillin Allergy Intermediate hives Verified 05/03/23 09:51 dextromethorphan Allergy Intermediate Hives Verified 05/03/23 09:51 [From NyQuil] doxylamine [From NyQuil] Allergy Intermediate Hives Verified 05/03/23 09:51 latex Allergy Intermediate RASH Verified 05/03/23 09:51 Sulfa (Sulfonamide Allergy Intermediate RASH Verified 05/03/23 09:51 Antibiotics) clarithromycin AdvReac Intermediate HEART RACES Verified 05/03/23 09:51 Umesh'ata multigrain bread Allergy Intermediate Hives Uncoded 05/03/23 09:51 Consultations 05/04/23 02:35 ED Decision to Admit Stat Ordered Studies 05/04/23 02:33 CT chest diagnostic wo con Stat 05/09/23 12:43 MR ankle RT wo con Routine 05/17/23 12:35 CT head/brain wo con Stat 05/18/23 10:38 US venous duplex arm [US venous doppler UE LT] Routine Hospital Course (1) Ambulatory dysfunction: (2) Pleural effusion, right: (3) Abnormal chest x-ray: (4) Pain in right knee: (5) Diabetic foot ulcer: (6) Asthma: (7) Uncontrolled diabetes mellitus with hyperglycemia, with long-term current use of insulin: (8) Hypercholesteremia: (9) Hypertension: (10) Morbid obesity with BMI of 50.0-59.9, adult: (11) GERD (gastroesophageal reflux disease): (12) Anemia: (13) Cystitis: (14) Ulcer of right heel: Plan Ms. Smith is a 63-year-old female who was admitted to our service after sustaining a mechanical fall at her home after she slipped in some urine. Ambulatory dysfunction -Ambulatory dysfunction may be secondary to morbid obesity, previous orthopedic issues -Hip, knee, and right ankle x-rays negative for fractures. -Continue pain management with IV Tylenol 1 g and tramadol as needed. -PT/OT Right Foot Heel Ulcer - Chronic, since 06/2022. - Offloading shoe for her right foot, continue to use with weight bearing - Wound care consulted: - Cleanse with saline, cover with adaptic touch, then Aquacel Ag, ABD and secure with large kerlix. Change daily. Offloading shoe when foot contacts floor. - Patient follows with wound care center as an outpatient, will need to be seen for follow up after discharge Acute on Chronic Kidney Disease -Patient with h/o CKD stage IV. Follows with nephrology as an outpatient. -Baseline Cr between 1.8-2.2. -AM Cr 2.48 - Continue daily Bumex 2mg. Recommend periodic BMP monitoring. HFpEF - Continue home meds Anxiety/Depression/Insomnia: - Continue Lexapro 5mg daily LUE Swelling: - DVT r/o - US LUE negative for deep or superficial venous thrombosis AMS, Acute - Resolved: - Patient with acute alteration in mental status with associated pain in LUE / - Unremarkable neuro exam - CT head negative for acute pathology Cystitis - Resolved - Patient with UA consistent with urinary tract infection and urine culture with pansensitive proteus - 7 day course of Keflex completed. Constipation- Resolved - Continue scheduled Miralax and encourage increased oral hydration. Chronic anemia -Chronic issue for which patient has received iron transfusion and is on home iron supplements -Hgb low but stable, patient asx DM-II -Hemoglobin A1c 7.9%. -Resume home diabetes medications Hypothyroidism -Continue home Synthroid Asthma -Continue home inhalers Total Time Total Time Spent Total Time Spent (In Minutes): <30 Discharge Plan Discharge Items Patient Disposition: Transfer Alf Fac Reason For Visit: AMBUL. DYSFUNCT., RT PLEURAL EFFUSION, HYPERGLYCEM Discharge Diagnosis: ambulatory dysfunction Condition on Discharge: Fair Activity: As commented below Activity Comment: gradually progress as tolerated and as directed by PT/OT Non-emergency contact: Primary Care Provider and Integration Manager Call non-emergency contact if: you have any medication questions Follow-up/Referrals: Natali Langston DO [Primary Care Provider] - Diet: Carb Consistent or DM2 and Heart Healthy Addtl Attending Provider Instructions: You were admitted to the hospital after a fall. Upon discharge, it is very important that you continue to wear your offloading shoe when engaging in weightbearing activities. Given your right foot heel ulcer, you will need to continue to follow with the wound care center. The following are the wound care instructions provided by our inpatient wound care team: Cleanse with saline, cover with adaptic touch, then Aquacel Ag, ABD and secure with large kerlix. Change daily. Offloading shoe when foot contacts floor. A discharge summary will be sent to your primary care physician to ensure continuity of care. Please bring this discharge summary with you to your next office appointment so that your provider can review it at that time. Medications: Your medication list has been reviewed and reconciled upon discharge to ensure accuracy and continuity of care. An updated list of all your medications is included with your hospital discharge paperwork. Please review this list closely and make note of any changes to your medications. New medications: - Please CONTINUE to take the following new medications: Lexapro - please take 1 tab daily. No other changes were made to your home medications, please continue to take all medications as previously directed. Follow up appointments: - Make a follow up appointment with your PCP within the next week. It is very important that you follow up with them shortly after discharge from the hospital. - Keep all of your follow up appointments as already scheduled. If you cannot make an appointment, notify your provider. CONTACT YOUR PRIMARY CARE PROVIDER if you experience any of the following: - Difficulty following your treatment plan - Difficulty taking any of your medications CALL 911 OR GO TO THE EMERGENCY DEPARTMENT if you experience any of the following: - Sudden, severe abdominal pain or nausea/vomiting - Severe chest pain or chest pain that radiates to your jaw or arm - Sudden, severe shortness of breath or difficulty breathing Pending Studies at Discharge: No Stand-Alone Forms: [facility] [employer] Skilled Items Patient informed of condition?: Yes DNR: No Discharge Level of Care: Skilled Communicable Disease: No Discharge Prognosis: Stable Lines: None Urinary Catheter: No Medications and DC Order Prescriptions: New escitalopram oxalate 10 mg Tablet 5 mg PO QAM 30 Days Qty: 15 0RF Continued Trulicity 1.5 mg/0.5 mL pen injector 1.5 mg subcut WK Rx Instructions: Sunday Farxiga 5 mg tablet 5 mg PO QAM Qty: 90 0RF (DME) FreeStyle Precision Perico Strips Strip See Rx Instructions .Route Rx Instructions: Test once daily with Freestyle Dayv PRN (DME) FreeStyle Davy 14 Day Sensor Kit See Rx Instructions .Route Rx Instructions: As directed (DME) FreeStyle Davy 14 Day [place] Misc See Rx Instructions .Route Rx Instructions: As directed (DME) pen needle, diabetic [BD Ultra-Fine Siria Pen Needle] 32 gauge x 5/32" needle See Rx Instructions .Route Rx Instructions: Use 4 per day with insulin injection (DME) lancets [OneTouch Delica Lancets] 30 gauge misc See Rx Instructions .Route Rx Instructions: Test blood sugar once daily PRN bumetanide 1 mg tablet 2 mg PO QAM Qty: 60 3RF insulin aspart U-100 [Novolog U-100 Insulin aspart] 100 unit/mL solution 35 unit subcut QPM Rx Instructions: with dinner insulin aspart U-100 [Novolog U-100 Insulin aspart] 100 unit/mL solution 40 unit subcut QPM Rx Instructions: with lunch insulin aspart U-100 [Novolog U-100 Insulin aspart] 100 unit/mL solution 45 unit subcut QPM Rx Instructions: with dinner insulin aspart U-100 [Novolog U-100 Insulin aspart] 100 unit/mL solution 1 sliding scale dose subcut USEASDIRECTD loratadine 10 mg tablet 10 mg PO DAILY PRN (Reason: Allergy Symptoms) levothyroxine [Synthroid] 175 mcg Tablet 175 mcg PO QAM fluticasone propionate 50 mcg/actuation [place],Suspension 1 spray INTRANASAL QAM atorvastatin 80 mg tablet 80 mg PO HS amitriptyline 50 mg Tablet 100 mg PO HS cyanocobalamin (vitamin B-12) 1,000 mcg tablet 1,000 mcg PO DAILY Qty: 30 5RF folic acid 1 mg tablet 1,000 mcg PO DAILY Qty: 30 0RF Rx Instructions: stop after 30 days. ferrous sulfate 325 mg (65 mg iron) tablet 325 mg PO DAILY Qty: 30 1RF albuterol sulfate 90 mcg/actuation HFA aerosol inhaler 2 puff INHALATION QID PRN (Reason: wheezing ) Combivent Respimat 20-100 mcg/actuation mist 2 puff INHALATION BID PRN (Reason: Shortness Of Breath Or Wheezing) omeprazole 20 mg capsule,delayed release(DR/EC) 20 mg PO DAILY acetaminophen 325 mg Tablet 650 mg PO Q4H PRN (Reason: pain) Qty: 30 0RF miconazole nitrate [Desenex] 2 % Powder 1 applic EXT TID Qty: 85 0RF insulin glargine [Lantus U-100 Insulin] 100 unit/mL solution 25 unit subcut BID Qty: 10 0RF famotidine 20 mg tablet 20 mg PO QAM Qty: 30 0RF amlodipine 10 mg tablet 10 mg PO DAILY Qty: 30 0RF cholecalciferol (vitamin D3) 50 mcg (2,000 unit) capsule 50 mcg PO QAM Discharge Orders: Discharge Order (Routine); Ordered 05/24/23 Ordered By: Saravanan Heath Admission Data Admit Date/Time: 05/04/23 04:34 Attending Provider: Mj Olivares Admit Provider: Quincy Pond Primary Care Provider: Natali Langston Other Providers: Quincy Pond; [facility]; [place],Care; [facility],Health; [place],Home Care; [facility] [place]; Alissa Holden; [place],Rehab Other Interventions: Discharge Summary Assessment (RN) Last Done: 05/24/23 14:33 Supervising Physician Co-Signing Physician Notes I personally examined the patient and verified all parson points of history and exam, discussed case, and agree with decision making with Dr Heath snf bed today. patient was working with therapy whenever I went to see her. Case discussed with resident physician and case management. vitals noted nad. Excessive sleepiness with disturbed night time sleep sec to anxiety/depression - CT head negative. - started lexapro and vistaril at night 05/18/23 - OOB as able HFpEF - chronic management PERLITA with CKD IV - Creatinine around baseline range. follow this balanced off HFpEF, periodic BMP at SNF Foot ulcer MRI with no Osteomyelitis. continue local wound care. continue antibiotics for superficial coverage. Boots to offload weight. DMII - A1c 7.9%. continue current meds. BMI 66 - outpatient discussion about weight mx. Fall in the setting of ambulatory dysfunction - PT/OT consult - set for SNF today Resident Activity Tracking Resident Involvement: Resident Care Provided Care Provided: Adult Hospital Medicine
--- NOTE | 2023-05-24 17:06 | Billing Data ---
Date of Service May 24, 2023 Coding Level of Care Code 91418 IN/OBS DISCH 30 MIN/LESS
--- NOTE | 2023-05-25 12:27 | Coding Query ---
CODING QUERY To promote full compliance with coding requirements relating to patient care, provider participation is requested in all cases of temperature regulator uncertainty. Please assist us with the question(s) below: Coding Question(s): HFpEF is documented in the record and on the 05/19 Progress Note, there is documentation of, "LUE Swelling: - DVT r/o - US LUE negative for deep or superficial venous thrombosis - Edema more pronounced today, likely more related to CHF/fluid overload", and, "HFpEF - Concern of fluid overload. Give spot dose 1mgs IV bumex now". Please specify below, in your clinical opinion, regarding the HFpEF and Fluid Overload as documented in the 05/19 Progress Note: ( x ) likely Acute on Chronic HFpEF ( ) likely Acute HFpEF ( ) likely Chronic HFpEF ( ) likely Other HFpEF. Please Specify ( ) likely Unknown HFpEF Physician's Response(s): Thank you Beverly Devlin Principal Diagnosis: "that condition established after study, to be chiefly responsible for occasioning the admission of the patient to the hospital for care." Co-Existing Principal Diagnosis: "when two or more diagnoses equally meet the criteria for principal diagnosis as determined by the circumstances of admission, diagnostic work up, and/or therapy provided, and the Alphabetic Index, Tabular List, or another coding guideline does not provide sequencing direction, any one of the diagnoses may be sequenced first." "When the physician has documented what appears to be a current diagnosis in the body of the record, but has not included the diagnosis in the final diagnostic statement, the physician should be asked whether the diagnosis should be added." (Source Coding Clinic 2 QTR90. p3-4) ANDREA
== END 2023-05-24 19:30 | DRG 40 ==
LOC: ED 23:25 → 3W 05-04 04:34 → SUATTDRO 05-04 04:34 → 3W 05-04 05:11 → UNDODISIN 05-24 17:00

== ENCOUNTER 2023-07-27 17:11 | Inpatient (IN) ==
--- NOTE | 2023-07-27 17:44 | Emergency Department Note ---
Impression & Plan Ambulatory dysfunction Admission ED Provider Note HPI: History obtained from patient. The patient is a 63-year-old female with history of chronic kidney disease, morbid obesity, heart failure with preserved ejection fraction, fibromyalgia, presents the emergency department with chief complaint of generalized weakness, difficulty with ambulation, and back pain. Patient states she was just discharged from inpatient rehab 3 days ago and she has not been doing well at home. Patient states that she has been having difficulty getting around her house and today she had some acute onset back pain with radicular symptoms down her left leg. Patient states that she has had pain previously in her back but this is worse than what she is experienced previously. On arrival here to the ED the patient is hemodynamically stable, she is saturating well on room air on arrival. ROS: - Per HPI Differential Diagnosis: Sepsis, compression fracture of the lumbar spine, degenerative disc disease of the lumbar spine, herniated disc disease of the lumbar spine, cauda equina syndrome, pulmonary edema, pneumonia, cellulitis, infected ulcer, amongst other potential pathologies. *Outpatient medications and allergy history reviewed. PE: General: Alert, morbidly obese HEENT: Normocephalic, trachea midline Eyes: Extraocular eye movement is intact, no scleral erythema Pulmonary: Clear to auscultation bilaterally, no wheezing Cardio: Regular rate and rhythm GI: Abdomen is soft to palpation : No suprapubic tenderness MSK:, Ulceration to the bottom of the right heel several centimeters in diameter with purulent drainage and moderate surrounding erythema, otherwise no evidence of trauma or malformation of the extremities, no edema Skin: There is a large ulceration on the base of the right heel with some purulent drainage and moderate surrounding erythema Neuro: Alert, no focal deficits Psychiatric: Cooperative INDEPENDENT INTERPRETATIONS: ironer or presser: (As interpreted by myself): - An order was placed for continuous cardiac monitoring - Patient was noted to be in sinus rhythm with a rate of 80 EKG: (As interpreted by myself): Rate: 72 Rhythm: Sinus rhythm Intervals: QRS prolonged at 140 ms, QTc 499 ms, [place] appears to be within normal limits ST changes: No ST elevation Time: 2310 Chest x-ray: (As interpreted by myself): Pattern of pulmonary edema Interventions provided in ED: -IV morphine, IV Zofran, IV cefepime Medical Decision Making: IV was established and lab work obtained, patient was placed on customer service security officer. Lab work shows a leukocytosis of 14.17, hemoglobin is stable at 9.1, platelet count is normal. CMP shows a mild hyponatremia 131, BUN is 63, creatinine is 2.07 which is the patient's baseline. BNP is mildly elevated at 205, chest x- ray does show a pattern of congestive change/pulmonary edema per my interpretation. Patient did have an exposure of hypoxia here in the ED to 85% was placed on nasal cannula oxygen with good improvement. CT imaging of the lumbar spine was obtained and does not show any evidence of any acute abnormalities. Troponin is mildly elevated at 17.4, EKG per my interpretation does not show any evidence of acute ischemic changes. On my reassessment the patient is on 2 L nasal cannula oxygen with good oxygen saturations and she remains hemodynamically stable. She otherwise does appear weak and listless, patient states she does not feel well for discharge. She states she has had difficulty with ambulation, in addition on my exam she does have purulent drainage from the wound of her right heel and I do have concern for acute infection as likely the source of some of her weakness and her leukocytosis. Blood cultures were drawn and the patient was given a dose of IV cefepime here in the ED. I discussed the patient's presentation with the on-call hospitalist, Dr. Pond, and the patient was placed for admission in stable condition. Consultants/Discussions held with other healthcare providers: -Hospitalist, Dr. Pond Disposition discussion held by myself with: -Patient and friend at bedside Diagnosis: 1. Ambulatory dysfunction, acute on chronic 2. Infected ulcer of the right heel, acute on chronic 3. Leukocytosis, acute 4. Pulmonary edema, acute, with hypoxia 5. Elevated BNP 6. Chronic kidney disease 7. Anemia, chronic Disposition: Admission Catrachito Pritchett DO Emergency Medicine Past Med/Surg History Problem List (Updated 07/27/23 @ 22:58 by Catrachito Pritchett DO) Ambulatory dysfunction (Acute) Ulcer of right heel Left hip pain (Acute) Pain in right knee (Acute) Anemia (Acute) Weakness (Acute) CKD (chronic kidney disease) stage 4, GFR 15-29 ml/min Anemia (Acute) Ambulatory dysfunction (Acute) Symptomatic anemia (Acute) Acute dyspnea (Acute) Diabetic foot ulcer (Acute) Junctional rhythm Morbid obesity with BMI of 60.0-69.9, adult Asthma COLD WEATHER FLARES UP/DENIES RECENT FLARE UP/ALBUTEROL ONLY PRN (HFpEF) heart failure with preserved ejection fraction SOB (shortness of breath) Leukocytosis Diabetic foot ulcer Left arm pain Elevated troponin Uncontrolled diabetes mellitus with hyperglycemia, with long-term current use of insulin Acute metabolic encephalopathy Acute onset of severe vertigo Dysphagia Diabetic ulcer of right heel (Acute) Colon cancer screening Encounter for pre-operative examination Hypertension (Chronic) Hypercholesteremia (Chronic) Anxiety (Chronic) Heart block (Chronic) Migraine LAST ONE JANUARY 2017 ( WAS JOB RELATED) Hypothyroidism (Chronic) Diverticular disease Family hx of colon cancer MOTHER - HAD OBSTRUCTIVE BOWEL CANCER Fibromyalgia Uses prosthesis Early awakening Proteinuria (Chronic) Anemia Chronic kidney disease, stage III (moderate) (Chronic) Uncontrolled type 2 diabetes mellitus with hyperglycemia (Chronic) Metabolic syndrome Obesity Mixed hyperlipidemia Dietary counseling and surveillance Vitamin D deficiency Hypomagnesemia Peritonsillar abscess (Acute) Acute hyperglycemia (Acute) Failure of outpatient treatment (Acute) PERLITA (acute kidney injury) Morbid obesity with BMI of 50.0-59.9, adult Peritonsillar abscess recent admission @ [facility] 01/29/22 for this--per pt has finished all antibiotics for this, no further issues at this time Hypothyroidism GERD (gastroesophageal reflux disease) Osteoarthritis Depression Medical History (Updated 07/27/23 @ 22:58 by Catrachito Pritchett DO) Fall Pseudomonas infection History of anesthesia reaction woke up during shoulder arthroscopy RBBB Hypoxia Hyperglycemia due to type 2 diabetes mellitus Pneumonia due to COVID-19 virus COVID-19 hx of in 2019--per pt was hospitalized for COVID--states no symptoms currently Bifascicular block Foot drop LEFT Chronic back pain Hx of irritable bowel syndrome Cataract Bilateral Umbilical hernia Hiatal hernia PTSD (post-traumatic stress disorder) History of diverticulitis Tear of medial meniscus of right knee, current Diabetes mellitus with hyperglycemia, with long-term current use of insulin Neck pain Narrowing of C6-C7 with bone spurs. CAUSES NUMBNESS IN LEFT ARM Anxiety Hyperlipidemia Hypertension History of migraine Hyperosmolar hyponatremia Fibromyalgia Surgical History History of repair of right rotator cuff History of repair of left rotator cuff History of repair of ACL L S/P rotator cuff repair History of arthroscopy of right shoulder History of dilatation and curettage History of repair of ACL R History of esophagogastroduodenoscopy (EGD) History of colonoscopy History of D&C Family History Grandfather Diabetes Mother Myocardial infarction Heart disease Tobacco abuse Hx of CABG Family/Other Family history of diabetes mellitus Brother Family history of diabetes mellitus Father Aortic aneurysm Grandmother (Paternal) Cerebral aneurysm Stroke Other Family history of colon cancer in mother Social History Smoking Status: Never smoker Second Hand Exposure: Yes; Do You Dip or Chew Tobacco: No; Hx Alcohol Use: No Hx Substance Use: No Preferred Language: Bahraini Communication Ability: Effective Visual Impairment: No Limitations Mark Up Designer Required: No Beliefs That Will Affect Care: None marital status: Current Living Situation: Alone Feels Safe at Home: Yes Assistive Devices: Cane, Walker and Other Allergies Allergies Allergy/AdvReac Type Severity Reaction Status Date / Time amoxicillin Allergy Intermediate hives Verified 07/27/23 20:52 dextromethorphan Allergy Intermediate Hives Verified 07/27/23 20:52 [From NyQuil] doxylamine [From NyQuil] Allergy Intermediate Hives Verified 07/27/23 20:52 latex Allergy Intermediate RASH Verified 07/27/23 20:52 Sulfa (Sulfonamide Allergy Intermediate RASH Verified 07/27/23 20:52 Antibiotics) clarithromycin AdvReac Intermediate HEART RACES Verified 07/27/23 20:52 Arnold's multigrain bread Allergy Intermediate Hives Uncoded 07/27/23 20:52 Home Meds Home Medications Medication Instructions Recorded Confirmed amitriptyline 50 mg tablet 100 mg PO HS 12/06/17 07/27/23 fluticasone propionate 50 1 spray intranasal QAM 03/10/19 07/27/23 mcg/actuation nasal spray,suspension levothyroxine 175 mcg tablet 175 mcg PO QAM 03/10/19 07/27/23 (Synthroid) atorvastatin 80 mg tablet 80 mg PO HS 02/19/20 07/27/23 loratadine 10 mg tablet 10 mg PO DAILY PRN Allergy Symptoms 01/19/21 07/27/23 pen needle, diabetic 32 gauge x 06/20/21 05/03/23" (BD Ultra-Fine Siria Pen Needle) blood sugar diagnostic (FreeStyle 04/20/22 02/22/24 Precision Perico Strips) flash glucose scanning reader 06/29/21 05/03/23 (FreeStyle Davy 14 Day [place]) flash glucose sensor (FreeStyle 06/29/21 05/03/23 Davy 14 Day Sensor kit) lancets 30 gauge (OneTouch Delica 06/29/21 05/03/23 Lancets) cholecalciferol (vitamin D3) 50 50 mcg PO QAM 02/09/22 07/27/23 mcg (2,000 unit) capsule albuterol sulfate 90 mcg/actuation 2 puff inhalation QID PRN wheezing 03/19/23 07/27/23 aerosol inhaler omeprazole 20 mg capsule,delayed 20 mg PO DAILY 03/19/23 07/27/23 release insulin aspart U-100 100 unit/mL 20 unit subcut TIDWMEAL 04/13/23 07/27/23 subcutaneous solution (Novolog U-100 Insulin aspart) bumetanide 1 mg tablet 0 mg PO QAM 07/27/23 07/27/23 insulin detemir U-100 100 unit/mL 20 unit subcut BID 07/27/23 07/27/23 (3 mL) subcutaneous pen (Levemir FlexPen) simvastatin 40 mg tablet 40 mg PO HS 07/27/23 07/27/23 Previous Rx's Medication Instructions Recorded cyanocobalamin (vitamin B-12) 1,000 mcg PO DAILY #30 tabs 01/16/23 1,000 mcg tablet ferrous sulfate 325 mg (65 mg 325 mg PO DAILY #30 tabs 01/16/23 iron) tablet folic acid 1 mg tablet 1,000 mcg PO DAILY #30 tabs 01/16/23 acetaminophen 325 mg tablet 650 mg (2 x 325 mg) PO Q4H PRN 04/12/23 pain #30 tabs amlodipine 10 mg tablet 10 mg PO DAILY #30 tabs 04/12/23 Results & Data (ED) Vital Signs Vital Signs - 24 hr 07/27/23 17:27 07/27/23 17:27 07/27/23 18:14 Temperature 36.7 C 36.7 C Temperature Source Oral Oral Pulse Rate 78 Pulse Rate [Right Finger] 78 Pulse Rate from SpO2 Sensor Respiratory Rate 18 18 Respiratory Effort / Characteristics Non-Labored Spontaneous Non-Labored Spontaneous Respiratory Depth Normal Normal Respiratory Pattern Blood Pressure 132/95 Blood Pressure [Right Arm] 132/95 Blood Pressure Mean 107 Blood Pressure Mean [Right Arm] 107 Blood Pressure Position Semi-fowlers Blood Pressure Position [Right Arm] Semi-fowlers Pulse Oximetry 97 97 100 Oxygen Delivery Method Room Air Room Air Nasal Cannula Oxygen Flow Rate 2 Sepsis Recent Fever Within 48 Hours No Sepsis New/Unexplained Change in Mental Status N/A Sepsis Action Taken by Nursing No Action Required 07/27/23 19:32 07/27/23 20:00 07/27/23 20:16 Temperature Temperature Source Pulse Rate 71 71 Pulse Rate [Right Finger] 71 Pulse Rate from SpO2 Sensor 71 Respiratory Rate 23 11 L 18 Respiratory Effort / Characteristics Non-Labored Spontaneous Respiratory Depth Normal Respiratory Pattern Regular Blood Pressure Blood Pressure [Right Arm] 139/69 Blood Pressure Mean Blood Pressure Mean [Right Arm] 92 Blood Pressure Position Blood Pressure Position [Right Arm] Pulse Oximetry 100 99 Oxygen Delivery Method Room Air Oxygen Flow Rate Sepsis Recent Fever Within 48 Hours Sepsis New/Unexplained Change in Mental Status Sepsis Action Taken by Nursing 07/27/23 20:16 07/27/23 20:16 07/27/23 20:30 Temperature Temperature Source Pulse Rate 72 72 Pulse Rate [Right Finger] Pulse Rate from SpO2 Sensor 72 73 Respiratory Rate 21 21 Respiratory Effort / Characteristics Respiratory Depth Respiratory Pattern Blood Pressure 139/69 Blood Pressure [Right Arm] Blood Pressure Mean 98 Blood Pressure Mean [Right Arm] Blood Pressure Position Blood Pressure Position [Right Arm] Pulse Oximetry 99 99 Oxygen Delivery Method Oxygen Flow Rate Sepsis Recent Fever Within 48 Hours Sepsis New/Unexplained Change in Mental Status Sepsis Action Taken by Nursing 07/27/23 20:31 07/27/23 20:31 07/27/23 21:00 Temperature Temperature Source Pulse Rate 71 72 Pulse Rate [Right Finger] Pulse Rate from SpO2 Sensor 71 72 Respiratory Rate 19 21 Respiratory Effort / Characteristics Respiratory Depth Respiratory Pattern Blood Pressure 144/65 H Blood Pressure [Right Arm] Blood Pressure Mean 113 Blood Pressure Mean [Right Arm] Blood Pressure Position Blood Pressure Position [Right Arm] Pulse Oximetry 100 99 Oxygen Delivery Method Oxygen Flow Rate Sepsis Recent Fever Within 48 Hours Sepsis New/Unexplained Change in Mental Status Sepsis Action Taken by Nursing 07/27/23 21:01 07/27/23 21:01 07/27/23 21:30 Temperature Temperature Source Pulse Rate 72 71 Pulse Rate [Right Finger] Pulse Rate from SpO2 Sensor 72 71 Respiratory Rate 18 25 H Respiratory Effort / Characteristics Respiratory Depth Respiratory Pattern Blood Pressure 142/65 H Blood Pressure [Right Arm] Blood Pressure Mean 101 Blood Pressure Mean [Right Arm] Blood Pressure Position Blood Pressure Position [Right Arm] Pulse Oximetry 100 99 Oxygen Delivery Method Oxygen Flow Rate Sepsis Recent Fever Within 48 Hours Sepsis New/Unexplained Change in Mental Status Sepsis Action Taken by Nursing 07/27/23 21:31 07/27/23 21:31 07/27/23 22:00 Temperature Temperature Source Pulse Rate 72 98 H Pulse Rate [Right Finger] Pulse Rate from SpO2 Sensor 73 73 Respiratory Rate 24 22 Respiratory Effort / Characteristics Respiratory Depth Respiratory Pattern Blood Pressure 136/74 Blood Pressure [Right Arm] Blood Pressure Mean 93 Blood Pressure Mean [Right Arm] Blood Pressure Position Blood Pressure Position [Right Arm] Pulse Oximetry 99 99 Oxygen Delivery Method Oxygen Flow Rate Sepsis Recent Fever Within 48 Hours Sepsis New/Unexplained Change in Mental Status Sepsis Action Taken by Nursing 07/27/23 22:09 07/27/23 22:09 Temperature Temperature Source Pulse Rate 75 Pulse Rate [Right Finger] Pulse Rate from SpO2 Sensor 75 Respiratory Rate 18 Respiratory Effort / Characteristics Respiratory Depth Respiratory Pattern Blood Pressure 142/81 H Blood Pressure [Right Arm] Blood Pressure Mean 92 Blood Pressure Mean [Right Arm] Blood Pressure Position Blood Pressure Position [Right Arm] Pulse Oximetry 97 Oxygen Delivery Method Oxygen Flow Rate Sepsis Recent Fever Within 48 Hours Sepsis New/Unexplained Change in Mental Status Sepsis Action Taken by Nursing Laboratory Data 07/27/23 18:09 07/27/23 18:09 Lab Results 07/27/23 Range/Units 18:09 WBC 14.17 H (4.8-10.8) K/ul RBC 3.28 L (4.20-5.40) M/uL Hgb 9.1 L (12.0-16.0) g/dl Hct 28.2 L (37.0-47.0) % MCV 86.0 (80.0-100.0) fL MCH 27.7 (25.0-34.0) pg MCHC 32.3 (32.0-36.0) g/dL RDW Std Deviation 47.2 H (36.4-46.3) fL RDW Coeff of Sylvia 15.0 H (11.5-14.5) % Plt Count 377 (130-400) K/uL MPV 10.9 (9.4-12.4) fL Immature Gran % (Auto) 0.8 % Neut % (Auto) 71.1 % Lymph % (Auto) 19.1 % Levy % (Auto) 6.2 % Eos % (Auto) 2.4 % Baso % (Auto) 0.4 % Neut # (Auto) 10.07 H (1.40-6.50) K/uL Lymph # (Auto) 2.71 (1.20-3.40) K/uL Levy # (Auto) 0.88 H (0.11-0.59) K/uL Eos # (Auto) 0.34 (0.00-0.50) K/uL Baso # (Auto) 0.06 (0.00-0.20) K/uL Immature Gran # (Auto) 0.11 (0.01-0.20) K/uL PT 12.0 (9.0-12.0) Seconds INR 1.1 (0.9-1.1) Sodium 131 L (136-145) mmol/L Potassium 3.6 (3.5-5.1) mmol/L Chloride 96 L (98-107) mmol/L Carbon Dioxide 25 (21-32) mmol/L Anion Gap 10 (3-11) BUN 63 H (6-23) mg/dl Creatinine 2.07 H (0.6-1.2) mg/dl Est Cr Clr Drug Dosing 37.1 ml/min Est GFR ( Amer) 28.8 ml/min Est GFR (Non-Af Amer) 24.9 ml/min BUN/Creatinine Ratio 30.4 H (10-20) Glucose 141 H (70-99(Fasting)) mg/dl Calcium 8.5 L (8.6-10.3) mg/dl Total Bilirubin 0.3 (0.2-1.0) mg/dl AST 15 (13-39) U/L ALT < 3 L (7-52) U/L Alkaline Phosphatase 131 H (34-104) U/L Troponin I High Sens 17.4 H (0-14) pg/ml B-Natriuretic Peptide 205 H (0-100) pg/ml Total Protein 7.4 (6.0-8.3) gm/dl Albumin 2.8 L (3.4-5.0) gm/dl Globulin 4.6 H (2.5-4.0) gm/dl Albumin/Globulin Ratio 0.6 L (0.9-2) Lipase 22 (11-82) U/L Administered Medications Discontinued Medications Furosemide (Furosemide 40 Mg/4 Ml Vial) 40 mg IV ONE ONE Stop: 07/27/23 21:44 Last Admin: 07/27/23 22:09 Dose: 40 mg Documented By: LAVINIA Cefepime HCl (Maxipime) 2,000 mg in 20 mls @ 5 mls/min IV NOW STA; Protocol Stop: 07/27/23 20:39 Last Admin: 07/27/23 21:32 Dose: 5 mls/min Documented By: LAVINIA Morphine Sulfate (Morphine Sulfate 4 Mg/Ml 1 Ml Carp\\Vial) 4 mg IV NOW STA Stop: 07/27/23 17:43 Last Admin: 07/27/23 17:51 Dose: 4 mg Documented By: MANDA Ondansetron HCl (Ondansetron Inj 2 Mg/Ml 2 Ml Vial) 4 mg IV NOW STA Stop: 07/27/23 17:43 Last Admin: 07/27/23 17:51 Dose: 4 mg Documented By: MANDA Imaging Data Radiologist's Impression: Lumbar Spine CT 07/27/23 17:41 Exam(s): CT L SPINE EXAM: CT Lumbar Spine Without Intravenous Contrast CLINICAL HISTORY: Reason for exam: lower back pain, radiates down L leg. TECHNIQUE: Axial computed tomography images of the lumbar spine without intravenous contrast. CTDI is 54.54 mGy and DLP is 1380.97 mGy-cm. Automated exposure control was utilized for the study. A dose lowering technique was utilized adhering to the principles of ALARA. COMPARISON: 01/29/2019 FINDINGS: Vertebrae: Unremarkable. No acute fracture. Discs/spinal canal/neural foramina: Degenerative disc disease at the L5-S1 level. No bony spinal canal stenosis. Soft tissues: Unremarkable. IMPRESSION: No acute findings in the lumbar spine. Electronically signed by: Ubaldo Gage M.D. 07/27/23 20:02 PM Chest X-Ray 07/27/23 17:42 XR chest 1V portable CLINICAL HISTORY: SOB TECHNIQUE: Single frontal radiograph of the chest was obtained. Comparison: Comparison is made to chest radiograph 05/04/2023 FINDINGS: No lines and tubes are seen. Cardiomegaly is noted. The aortic arch is calcified. Prominence and cephalization of the vasculature is seen. No evidence of pleural effusion or pneumothorax. IMPRESSION: Cardiomegaly and mild pulmonary edema. ACT 112: Negative or not required by law. Electronically signed by: Juan Ramon Bejarano M.D. 07/27/2023 7:22 PM Discharge Plan Visit Data Chief Complaint: Back Injury/Pain Stated Complaint: Back Pain ED Provider: Catrachito Pritchett Discharge Problem: Ambulatory dysfunction Discharge Instructions Interventions: ED Discharge Assessment Last Done: 07/27/23 22:44 Forms Stand Alone Forms: [facility] [employer] Prescriptions Prescriptions: No Action (DME) FreeStyle Precision Perico Strips Strip See Rx Instructions .Route Rx Instructions: Test once daily with Freestyle Davy PRN (DME) FreeStyle Davy 14 Day Sensor Kit See Rx Instructions .Route Rx Instructions: As directed (DME) FreeStyle Davy 14 Day [place] Misc See Rx Instructions .Route Rx Instructions: As directed (DME) pen needle, diabetic [BD Ultra-Fine Siria Pen Needle] 32 gauge x 5/32" needle See Rx Instructions .Route Rx Instructions: Use 4 per day with insulin injection (DME) lancets [studentSNTouch Delica Lancets] 30 gauge misc See Rx Instructions .Route Rx Instructions: Test blood sugar once daily PRN insulin aspart U-100 [Novolog U-100 Insulin aspart] 100 unit/mL solution 20 unit subcut TIDWMEAL loratadine 10 mg tablet 10 mg PO DAILY PRN (Reason: Allergy Symptoms) levothyroxine [Synthroid] 175 mcg Tablet 175 mcg PO QAM fluticasone propionate 50 mcg/actuation [place],Suspension 1 spray INTRANASAL QAM atorvastatin 80 mg tablet 80 mg PO HS amitriptyline 50 mg Tablet 100 mg PO HS cyanocobalamin (vitamin B-12) 1,000 mcg tablet 1,000 mcg PO DAILY Qty: 30 5RF folic acid 1 mg tablet 1,000 mcg PO DAILY Qty: 30 0RF Rx Instructions: stop after 30 days. ferrous sulfate 325 mg (65 mg iron) tablet 325 mg PO DAILY Qty: 30 1RF albuterol sulfate 90 mcg/actuation HFA aerosol inhaler 2 puff INHALATION QID PRN (Reason: wheezing ) omeprazole 20 mg capsule,delayed release(DR/EC) 20 mg PO DAILY acetaminophen 325 mg Tablet 650 mg PO Q4H PRN (Reason: pain) Qty: 30 0RF amlodipine 10 mg tablet 10 mg PO DAILY Qty: 30 0RF cholecalciferol (vitamin D3) 50 mcg (2,000 unit) capsule 50 mcg PO QAM simvastatin 40 mg tablet 40 mg PO HS Levemir FlexPen 100 unit/mL (3 mL) insulin pen 20 unit SUBCUT BID bumetanide 1 mg tablet 0 mg PO QAM Rx Instructions: Pt unsure of this medication at this date/time. Original Directions: 2mg by mouth once every morning Referrals Referrals: Natali Langston DO [Primary Care Provider] -
[2023-07-27] MEDS: MoRPHine SULFATE 4 MG/ML 1 ML CARP\\VIAL IV STA (17:51)
[2023-07-27] MEDS: ONDANSETRON INJ 2 MG/ML 2 ML VIAL IV STA (17:51)
[2023-07-27 18:27] LABS: Basophils # (auto) 0.06 K/uL (0.00-0.20); Basophils % (auto) 0.4 %; Eosinophils # (auto) 0.34 K/uL (0.00-0.50); Eosinophils % (auto) 2.4 %; Hematocrit (blood only) 28.2 % (37.0-47.0); Hemoglobin 9.1 g/dl (12.0-16.0); Immature Granulocytes # (auto) 0.11 K/uL (0.01-0.20); Immature Granulocytes % (auto) 0.8 %; Lymphocytes # (auto) 2.71 K/uL (1.20-3.40); Lymphocytes % (auto) 19.1 %; Mean Corpuscular Hemoglobin 27.7 pg (25.0-34.0); Mean Corpuscular Hgb Conc 32.3 g/dL (32.0-36.0); Mean Platelet Volume 10.9 fL (9.4-12.4); Monocytes # (auto) 0.88 K/uL (0.11-0.59); Monocytes % (auto) 6.2 %; Neutrophils # (auto) 10.07 K/uL (1.40-6.50); Neutrophils % (auto) 71.1 %; Platelet Count 377 K/uL (130-400); RDW Standard Deviation 47.2 fL (36.4-46.3); Red Blood Count 3.28 M/uL (4.20-5.40); White Blood Count 14.17 K/ul (4.8-10.8)
[2023-07-27 18:44] LABS: Anion Gap 10 (3-11); BUN Creatinine Ratio 30.4 (10-20); Blood Urea Nitrogen 63 mg/dl (6-23); Calcium 8.5 mg/dl (8.6-10.3); Carbon Dioxide 25 mmol/L (21-32); Chloride 96 mmol/L (98-107); Creatinine Clr Calc Pharmacy 37.1 ml/min; Est GFR (African American) 28.8 ml/min; Est GFR (Non-African American) 24.9 ml/min; Glucose 141 mg/dl (70-99(Fasting)); Potassium 3.6 mmol/L (3.5-5.1); Sodium 131 mmol/L (136-145)
[2023-07-27 18:51] LABS: Alanine Aminotransferase < 3 U/L (7-52); Albumin Globulin Ratio 0.6 (0.9-2); Albumin Level 2.8 gm/dl (3.4-5.0); Alkaline Phosphatase 131 U/L (34-104); Aspartate Aminotransferase 15 U/L (13-39); Bilirubin,Total 0.3 mg/dl (0.2-1.0); Globulin 4.6 gm/dl (2.5-4.0); Lipase 22 U/L (11-82); Total Protein 7.4 gm/dl (6.0-8.3)
[2023-07-27 18:57] LABS: INR 1.1 (0.9-1.1)
--- NOTE | 2023-07-27 19:23 | XRay Report ---
XR chest 1V portable CLINICAL HISTORY: SOB TECHNIQUE: Single frontal radiograph of the chest was obtained. Comparison: Comparison is made to chest radiograph 05/04/2023 FINDINGS: No lines and tubes are seen. Cardiomegaly is noted. The aortic arch is calcified. Prominence and ceph alization of the vasculature is seen. No evidence of pleural effusion or pneumothorax. IMPRESSION: Cardiomegaly and mild pulmonary edema. ACT 112: Negative or not required by law. Electronically signed by: Juan Ramon Bejarano M.D. 07/27/2023 7:22 PM
--- NOTE | 2023-07-27 20:03 | CT Scan Report ---
Exam(s): CT L SPINE EXAM: CT Lumbar Spine Without Intravenous Contrast CLINICAL HISTORY: Reason for exam: lower back pain, radiates down L leg. TECHNIQUE: Axial computed tomography images of the lumbar spine without intravenous contrast. CTDI is 54.54 mGy and DLP is 1380.97 mGy-cm. Automated exposure control was utilized for the study. A dose lowering technique was utilized adhering to the principles of ALARA. COMPARISON: 01/29/2019 FINDINGS: Vertebrae: Unremarkable. No acute fracture. Discs/spinal canal/neural foramina: Degenerative disc disease at the L5-S1 level. No bony spinal canal stenosis. Soft tissues: Unremarkable. IMPRESSION: No acute findings in the lumbar spine. Electronically signed by: Ubaldo Gage M.D. 07/27/23 20:02 PM
[2023-07-27] MEDS: CEFEPIME 2,000 MG/20 ML VIAL IV STA (21:32)
--- NOTE | 2023-07-27 21:45 | History & Physical Report ---
Date of Service July 27, 2023 Assessment & Plan (1) Ulcer of right heel: (2) Diabetic foot ulcer: (3) CKD (chronic kidney disease) stage 4, GFR 15-29 ml/min: (4) Ambulatory dysfunction: (5) (HFpEF) heart failure with preserved ejection fraction: (6) SOB (shortness of breath): (7) Hypercholesteremia: (8) Hypertension: (9) Anxiety: Plan Right heel diabetic foot ulcer- Exacerbation of a reportedly previously healed Now with drainage, asked the ED to send a wound culture Previously had grown Pseudomonas on 11/21/2022 and Staph aureus on 01/04/2023 Follow wound culture and sensitivity Continue cefepime 2 g IV every 12 hours begun in the ED Consult wound care Pressure offloading heel Pulmonary edema/HFpEF/hypertension- Patient reports that she has been taking torsemide in the outpatient setting Give furosemide 40 mg IV x 1 now, and reassess for IV versus oral diuretics in the a.m. Follow renal function panel and magnesium level CKD stage IV- Creatinine 2.07 on admission, with base range 2.29-2.48, likely associated with fluid overload as noted Follow laboratory serially Diabetes mellitus- Reduce Levemir from 20 to 14 units subcu twice daily Hold standing order for NovoLog Placed on Accu-Cheks with NovoLog SSI History of Present Illness Chief Complaint: The patient presents to the emergency department with complaints regarding low back pain from being in an uncomfortable bed, her right heel has begun to weep again and she has been feeling more short of breath again. Primary Care Provider: Natali Langston DO The patient is a 63-year-old female with a past medical history including diabetic right heel ulcer, CKD stage IV, ambulatory dysfunction, morbid obesity, asthma, HFpEF, hypertension, hypercholesterolemia, anxiety, fibromyalgia, GERD, morbid obesity, and depression. She just been discharged from inpatient rehab 3 days ago, and notes a return of weeping of right heel wound, progressive shortne ss of breath, and low back pain with difficulty getting in and out of bed. Her most recent hospitalization was from 05/04-05/24/2023 for problems including urinary tract infection, and diabetic foot ulcer. She had been discharged to inpatient rehab in [place], and been there for 3 weeks, and was discharged 3 days ago. She then developed close as noted above. Allergies Allergy/AdvReac Type Severity Reaction Status Date / Time amoxicillin Allergy Intermediate hives Verified 07/27/23 20:52 dextromethorphan Allergy Intermediate Hives Verified 07/27/23 20:52 [From NyQuil] doxylamine [From NyQuil] Allergy Intermediate Hives Verified 07/27/23 20:52 latex Allergy Intermediate RASH Verified 07/27/23 20:52 Sulfa (Sulfonamide Allergy Intermediate RASH Verified 07/27/23 20:52 Antibiotics) clarithromycin AdvReac Intermediate HEART RACES Verified 07/27/23 20:52 Arnshane's multigrain bread Allergy Intermediate Hives Uncoded 07/27/23 20:52 Home Medications Medication Instructions Recorded Confirmed Type amitriptyline 50 mg tablet 100 mg PO HS 12/06/17 07/27/23 History fluticasone propionate 50 1 spray intranasal QAM 03/10/19 07/27/23 History mcg/actuation nasal spray,suspension levothyroxine 175 mcg tablet 175 mcg PO QAM 03/10/19 07/27/23 History (Synthroid) atorvastatin 80 mg tablet 80 mg PO HS 02/19/20 07/27/23 History loratadine 10 mg tablet 10 mg PO DAILY PRN Allergy Symptoms 01/19/21 07/27/23 History pen needle, diabetic 32 gauge x 06/20/21 05/03/23 History 532" (BD Ultra-Fine Siria Pen Needle) blood sugar diagnostic (FreeStyle 06/29/21 05/03/23 History Precision Perico Strips) flash glucose scanning reader 06/29/21 05/03/23 History (FreeStyle Davy 14 Day [place]) flash glucose sensor (FreeStyle 06/29/21 05/03/23 History Davy 14 Day Sensor kit) lancets 30 gauge (OneTouch Delica 06/29/21 05/03/23 History Lancets) cholecalciferol (vitamin D3) 50 50 mcg PO QAM 02/09/22 07/27/23 History mcg (2,000 unit) capsule cyanocobalamin (vitamin B-12) 1,000 mcg PO DAILY #30 tabs 01/16/23 07/27/23 Rx 1,000 mcg tablet ferrous sulfate 325 mg (65 mg 325 mg PO DAILY #30 tabs 01/16/23 07/27/23 Rx iron) tablet folic acid 1 mg tablet 1,000 mcg PO DAILY #30 tabs 01/16/23 07/27/23 Rx albuterol sulfate 90 mcg/actuation 2 puff inhalation QID PRN wheezing 03/19/23 07/27/23 History aerosol inhaler omeprazole 20 mg capsule,delayed 20 mg PO DAILY 03/19/23 07/27/23 History release acetaminophen 325 mg tablet 650 mg (2 x 325 mg) PO Q4H PRN 04/12/23 07/27/23 Rx pain #30 tabs amlodipine 10 mg tablet 10 mg PO DAILY #30 tabs 04/12/23 07/27/23 Rx insulin aspart U-100 100 unit/mL 20 unit subcut TIDWMEAL 04/13/23 07/27/23 History subcutaneous solution (Novolog U-100 Insulin aspart) bumetanide 1 mg tablet 0 mg PO QAM 07/27/23 07/27/23 History insulin detemir U-100 100 unit/mL 20 unit subcut BID 07/27/23 07/27/23 History (3 mL) subcutaneous pen (Levemir FlexPen) simvastatin 40 mg tablet 40 mg PO HS 07/27/23 07/27/23 History Past Med/Surg History Problem List (Updated 06/02/23 @ 00:10 by Background Kelsey) Ulcer of right heel Left hip pain (Acute) Pain in right knee (Acute) Anemia (Acute) Weakness (Acute) CKD (chronic kidney disease) stage 4, GFR 15-29 ml/min Anemia (Acute) Ambulatory dysfunction (Acute) Symptomatic anemia (Acute) Acute dyspnea (Acute) Diabetic foot ulcer (Acute) Junctional rhythm Morbid obesity with BMI of 60.0-69.9, adult Asthma COLD WEATHER FLARES UP/DENIES RECENT FLARE UP/ALBUTEROL ONLY PRN (HFpEF) heart failure with preserved ejection fraction SOB (shortness of breath) Leukocytosis Diabetic foot ulcer Left arm pain Elevated troponin Uncontrolled diabetes mellitus with hyperglycemia, with long-term current use of insulin Acute metabolic encephalopathy Acute onset of severe vertigo Dysphagia Diabetic ulcer of right heel (Acute) Colon cancer screening Encounter for pre-operative examination Hypertension (Chronic) Hypercholesteremia (Chronic) Anxiety (Chronic) Heart block (Chronic) Migraine LAST ONE JANUARY 2017 ( WAS JOB RELATED) Hypothyroidism (Chronic) Diverticular disease Family hx of colon cancer MOTHER - HAD OBSTRUCTIVE BOWEL CANCER Fibromyalgia Uses prosthesis Early awakening Proteinuria (Chronic) Anemia Chronic kidney disease, stage III (moderate) (Chronic) Uncontrolled type 2 diabetes mellitus with hyperglycemia (Chronic) Metabolic syndrome Obesity Mixed hyperlipidemia Dietary counseling and surveillance Vitamin D deficiency Hypomagnesemia Peritonsillar abscess (Acute) Acute hyperglycemia (Acute) Failure of outpatient treatment (Acute) PERLITA (acute kidney injury) Morbid obesity with BMI of 50.0-59.9, adult Peritonsillar abscess recent admission @ [facility] 01/29/22 for this--per pt has finished all antibiotics for this, no further issues at this time Hypothyroidism GERD (gastroesophageal reflux disease) Osteoarthritis Depression Medical History (Updated 06/02/23 @ 00:10 by Background Kelsey) Fall Pseudomonas infection History of anesthesia reaction woke up during shoulder arthroscopy RBBB Hypoxia Hyperglycemia due to type 2 diabetes mellitus Pneumonia due to COVID-19 virus COVID-19 hx of in 2019--per pt was hospitalized for COVID--states no symptoms currently Bifascicular block Foot drop LEFT Chronic back pain Hx of irritable bowel syndrome Cataract Bilateral Umbilical hernia Hiatal hernia PTSD (post-traumatic stress disorder) History of diverticulitis Tear of medial meniscus of right knee, current Diabetes mellitus with hyperglycemia, with long-term current use of insulin Neck pain Narrowing of C6-C7 with bone spurs. CAUSES NUMBNESS IN LEFT ARM Anxiety Hyperlipidemia Hypertension History of migraine Hyperosmolar hyponatremia Fibromyalgia Surgical History History of repair of right rotator cuff History of repair of left rotator cuff History of repair of ACL L S/P rotator cuff repair History of arthroscopy of right shoulder History of dilatation and curettage History of repair of ACL R History of esophagogastroduodenoscopy (EGD) History of colonoscopy History of D&C Family History Grandfather Diabetes Mother Myocardial infarction Heart disease Tobacco abuse Hx of CABG Family/Other Family history of diabetes mellitus Brother Family history of diabetes mellitus Father Aortic aneurysm Grandmother (Paternal) Cerebral aneurysm Stroke Other Family history of colon cancer in mother Social History Smoking Status: Never smoker Second Hand Exposure: Yes; Do You Dip or Chew Tobacco: No; Hx Alcohol Use: No Hx Substance Use: No Preferred Language: Mongolian Communication Ability: Effective Visual Impairment: No Limitations Foundation Stage Teacher Required: No Beliefs That Will Affect Care: None marital status: Current Living Situation: Alone Feels Safe at Home: Yes Assistive Devices: Cane, Walker and Other Review of Systems Review of Systems: The patient denies chest pain, palpitations, cough, sore throat, fevers, chills, sweats, nausea, vomiting, diarrhea , constipation, abdominal pain, pelvic pain, blood in urine or stool, dysuria, urinary frequency or urgency, lightheadedness, dizziness, headache, memory loss, loss of consciousness, focal or generalized weakness, numbness or tingling in arms, generalized arthralgias or myalgias, neck pain, or night sweats. The review of systems is otherwise negative other than for that already noted above, and at least 10 systems have been reviewed. Physical Exam Physical Exam: The patient is awake, alert and oriented 3, well developed and well nourished, normocephalic and atraumatic, sitting upright in bed and in no acute distress. HEENT--PERRL, EOMI, mucous membranes and oropharynx normal Neck--supple. No JVD. No bruits. Thyroid normal, trachea midline, no adenopathy. Heart--normal S1 and S2. No murmurs, rubs or gallops. Lungs--clear bilaterally, no respiratory distress, no accessory muscle use. Abdomen--normal bowel sounds and soft. Nontender. Nondistended, no hernias or masses, no organomegaly. Extremities--right heel with wound as noted in ED notes, has been redressed this evening Dermatologic--as above Neurologic--cranial nerves II through XII grossly intact. Rheumatologic--limited exam due to body habitus Psychiatric--normal affect. Results & Data Results & Data Vital Signs (Past 12 Hours) Vital Signs Temp Pulse Pulse Resp BP BP Pulse Ox 07/27/23 20:16 71 18 139/69 99 07/27/23 18:14 100 07/27/23 17:27 36.7 C 78 18 132/95 97 07/27/23 17:27 36.7 C 78 18 132/95 97 O2 Del Method O2 Flow Rate 07/27/23 20:16 Room Air 07/27/23 18:14 Nasal Cannula 2 07/27/23 17:27 Room Air 07/27/23 17:27 Room Air Laboratory Results Laboratory Results WBC 14.17 K/ul (4.8-10.8) H 07/27/23 18:09 RBC 3.28 M/uL (4.20-5.40) L 07/27/23 18:09 Hgb 9.1 g/dl (12.0-16.0) L 07/27/23 18:09 Hct 28.2 % (37.0-47.0) L 07/27/23 18:09 MCV 86.0 fL (80.0-100.0) 07/27/23 18:09 MCH 27.7 pg (25.0-34.0) 07/27/23 18:09 MCHC 32.3 g/dL (32.0-36.0) 07/27/23 18:09 RDW Std Deviation 47.2 fL (36.4-46.3) H 07/27/23 18:09 RDW Coeff of Sylvia 15.0 % (11.5-14.5) H 07/27/23 18:09 Plt Count 377 K/uL (130-400) 07/27/23 18:09 MPV 10.9 fL (9.4-12.4) 07/27/23 18:09 Immature Gran % (Auto) 0.8 % 07/27/23 18:09 Neut % (Auto) 71.1 % 07/27/23 18:09 Lymph % (Auto) 19.1 % 07/27/23 18:09 Carroll % (Auto) 6.2 % 07/27/23 18:09 Eos % (Auto) 2.4 % 07/27/23 18:09 Baso % (Auto) 0.4 % 07/27/23 18:09 Neut # (Auto) 10.07 K/uL (1.40-6.50) H 07/27/23 18:09 Lymph # (Auto) 2.71 K/uL (1.20-3.40) 07/27/23 18:09 Carroll # (Auto) 0.88 K/uL (0.11-0.59) H 07/27/23 18:09 Eos # (Auto) 0.34 K/uL (0.00-0.50) 07/27/23 18:09 Baso # (Auto) 0.06 K/uL (0.00-0.20) 07/27/23 18:09 Immature Gran # (Auto) 0.11 K/uL (0.01-0.20) 07/27/23 18:09 PT 12.0 Seconds (9.0-12.0) 07/27/23 18:09 INR 1.1 (0.9-1.1) 07/27/23 18:09 Sodium 131 mmol/L (136-145) L 07/27/23 18:09 Potassium 3.6 mmol/L (3.5-5.1) 07/27/23 18:09 Chloride 96 mmol/L (98-107) L 07/27/23 18:09 Carbon Dioxide 25 mmol/L (21-32) 07/27/23 18:09 Anion Gap 10 (3-11) 07/27/23 18:09 BUN 63 mg/dl (6-23) H 07/27/23 18:09 Creatinine 2.07 mg/dl (0.6-1.2) H 07/27/23 18:09 Est Cr Clr Drug Dosing 37.1 ml/min 07/27/23 18:09 Est GFR ( Amer) 28.8 ml/min 07/27/23 18:09 Est GFR (Non-Af Amer) 24.9 ml/min 07/27/23 18:09 BUN/Creatinine Ratio 30.4 (10-20) H 07/27/23 18:09 Glucose 141 mg/dl (70-99(Fasting)) H 07/27/23 18:09 Calcium 8.5 mg/dl (8.6-10.3) L 07/27/23 18:09 Total Bilirubin 0.3 mg/dl (0.2-1.0) 07/27/23 18:09 AST 15 U/L (13-39) 07/27/23 18:09 ALT < 3 U/L (7-52) L 07/27/23 18:09 Alkaline Phosphatase 131 U/L (34-104) H 07/27/23 18:09 Troponin I High Sens 17.4 pg/ml (0-14) H 07/27/23 18:09 B-Natriuretic Peptide 205 pg/ml (0-100) H 07/27/23 18:09 Total Protein 7.4 gm/dl (6.0-8.3) 07/27/23 18:09 Albumin 2.8 gm/dl (3.4-5.0) L 07/27/23 18:09 Globulin 4.6 gm/dl (2.5-4.0) H 07/27/23 18:09 Albumin/Globulin Ratio 0.6 (0.9-2) L 07/27/23 18:09 Lipase 22 U/L (11-82) 07/27/23 18:[address] 07/27/23 17:41 Exam(s): CT L SPINE EXAM: CT Lumbar Spine Without Intravenous Contrast CLINICAL HISTORY: Reason for exam: lower back pain, radiates down L leg. TECHNIQUE: Axial computed tomography images of the lumbar spine without intravenous contrast. CTDI is 54.54 mGy and DLP is 1380.97 mGy-cm. Automated exposure control was utilized for the study. A dose lowering technique was utilized adhering to the principles of ALARA. COMPARISON: 01/29/2019 FINDINGS: Vertebrae: Unremarkable. No acute fracture. Discs/spinal canal/neural foramina: Degenerative disc disease at the L5-S1 level. No bony spinal canal stenosis. Soft tissues: Unremarkable. IMPRESSION: No acute findings in the lumbar spine. Electronically signed by: Ubaldo Gage M.D. 07/27/23 20:02 PM Chest X-Ray 07/27/23 17:42 XR chest 1V portable CLINICAL HISTORY: SOB TECHNIQUE: Single frontal radiograph of the chest was obtained. Comparison: Comparison is made to chest radiograph 05/04/2023 FINDINGS: No lines and tubes are seen. Cardiomegaly is noted. The aortic arch is calcified. Prominence and cephalization of the vasculature is seen. No evidence of pleural effusion or pneumothorax. IMPRESSION: Cardiomegaly and mild pulmonary edema. ACT 112: Negative or not required by law. Electronically signed by: Juan Ramon Bejarano M.D. 07/27/2023 7:22 PM Code Status & VTE Plan Code Status Full code VTE Prophylaxis Plan VTE Prophylaxis will be ordered: Yes PG Care Time/CCT Total # of Minutes Spent Total Time Spent with Patient: Total time spent is greater than 50% in coordination of care (as documented) at patient's floor/unit and/or counseling patient: Coding Level of Care Code 20813 INT INP/OBS CARE MIN Diagnoses Ulcer of right heel L97.419 Diabetic foot ulcer E11.621; L97.412 Diabetes mellitus type: type 2 Diabetic foot ulcer location: heel Laterality: right Non-pressure ulcer stage: with fat layer exposed CKD (chronic kidney disease) stage 4, GFR 15-29 ml/min N18.4 Ambulatory dysfunction R26.2 (HFpEF) heart failure with preserved ejection fraction I50.30 SOB (shortness of breath) R06.02 Hypercholesteremia E78.00 Primary hypertension I10 Hypertension type: primary hypertension Anxiety F41.9 (2) Diabetic foot ulcer Diabetes mellitus type: type 2 Diabetic foot ulcer location: heel Laterality: right Non-pressure ulcer stage: with fat layer exposed Qualified Code(s): E11.621 - Type 2 diabetes mellitus with foot ulcer; L97.412 - Non- pressure chronic ulcer of right heel and midfoot with fat layer exposed (8) Hypertension Hypertension type: primary hypertension Qualified Code(s): I10 - Essential (primary) hypertension
[2023-07-27] MEDS: FUROSEMIDE 40 MG/4 ML VIAL IV ONE (22:09)
[2023-07-27] MEDS ORDERED: GLUCOSE 10 TAB/TUBE PO PRN (23:49)
[2023-07-27] MEDS ORDERED: GLUCAGON FOR INJ 1 MG VIAL SQ PRN (23:49)
[2023-07-27] MEDS ORDERED: CARBOHYDRATES FOR HYPOGLYCEMIA PO PRN (23:49)
[2023-07-27] MEDS ORDERED: GLUCOSE 40% GEL 15 GM TUBE PO PRN (23:49)
[2023-07-27] MEDS ORDERED: DEXTROSE 50% 50 ML SYRINGE IV PRN (23:49)
[2023-07-28] MEDS: MoRPHine SULFATE 4 MG/ML 1 ML CARP\\VIAL IV PRN (01:10)
[2023-07-28] MEDS: POLYETHYLENE (MIRALAX) 17 GM PACK PO SCH (01:10)
[2023-07-28] MEDS: LEVOTHYROXINE SODIUM 175 MCG TABLET PO SCH (05:58)
[2023-07-28 06:59] LABS: Basophils # (auto) 0.05 K/uL (0.00-0.20); Basophils % (auto) 0.5 %; Eosinophils # (auto) 0.33 K/uL (0.00-0.50); Hematocrit (blood only) 22.9 % (37.0-47.0); Hemoglobin 7.3 g/dl (12.0-16.0); Immature Granulocytes # (auto) 0.08 K/uL (0.01-0.20); Immature Granulocytes % (auto) 0.7 %; Lymphocytes # (auto) 2.67 K/uL (1.20-3.40); Lymphocytes % (auto) 24.4 %; Mean Corpuscular Hemoglobin 27.8 pg (25.0-34.0); Mean Corpuscular Hgb Conc 31.9 g/dL (32.0-36.0); Mean Corpuscular Volume 87.1 fL (80.0-100.0); Mean Platelet Volume 11.2 fL (9.4-12.4); Monocytes # (auto) 0.73 K/uL (0.11-0.59); Monocytes % (auto) 6.7 %; Neutrophils # (auto) 7.09 K/uL (1.40-6.50); Neutrophils % (auto) 64.7 %; Platelet Count 301 K/uL (130-400); RDW Coefficient of Variation 14.9 % (11.5-14.5); RDW Standard Deviation 47.4 fL (36.4-46.3); Red Blood Count 2.63 M/uL (4.20-5.40); White Blood Count 10.95 K/ul (4.8-10.8)
[2023-07-28 07:28] LABS: Albumin Level 2.2 gm/dl (3.4-5.0); Calcium 7.6 mg/dl (8.6-10.3); Creatinine Clr Calc Pharmacy 37.3 ml/min; Magnesium 1.3 mg/dl (1.7-2.4); Potassium 3.8 mmol/L (3.5-5.1)
[2023-07-28 07:33] LABS: RBC Morphology Unremarkable; Troponin I High Sensitivity 14.3 pg/ml (0-14)
--- NOTE | 2023-07-28 07:46 | Hospitalist Progress Note ---
Date of Service July 28, 2023 Assessment & Plan (1) Ulcer of right heel: (2) Diabetic foot ulcer: (3) CKD (chronic kidney disease) stage 4, GFR 15-29 ml/min: (4) Ambulatory dysfunction: (5) (HFpEF) heart failure with preserved ejection fraction: (6) SOB (shortness of breath): (7) Hypercholesteremia: (8) Hypertension: (9) Anxiety: (10) Anemia: (11) Hyponatremia: Plan Anemia: AM Hgb 7.3, low baseline hemoglobin likely in the setting of CKD Continue iron supplementation Recheck AM Hgb Consider transfusion for Hgb<7 if symptomatic Hyponatremia: AM sodium 131, possibly due to chronic diuretic use vs poor nutrition Recheck AM labs Consider nutrition consult Right heel diabetic foot ulcer: Wound culture taken, pending H/o Pseudomonas on 11/21/2022 and Staph aureus on 01/04/2023 Continue cefepime 2 g IV every 12 hours Wound care consulted, appreciate recs Pressure offloading heel Ambulatory Dysfunction: Patient lives alone, has difficulty getting up from current bed - will coordinate with case management to obtain hospital bed PT/OT evaluations ordered, appreciate recs Pulmonary edema/HFpEF/hypertension: S/p furosemide 40 mg IV x 1, currently without shortness of breath Outpatient prescriptions reviewed with pharmacy, last diuretic filled was Bumex 2mg daily - will resume starting in AM Follow renal function panel and magnesium level CKD stage IV: Creatinine 2.07 on admission, with base range 2.29-2.48 QAM lab monitoring Diabetes mellitus: Continue basal insulin 14 units subcu twice daily Placed on Accu-Cheks with NovoLog SSI PCU/Tele VTE ppx: Heparin Diet: REHANA ALEJANDRE Full Code Admission and Anticipated Discharge Date Admission Date: July 27, 2023 Supervising Physician Co-Signing Physician Notes Attending attestation Pt seen and examined in concert with Dr. Heath. In agreement with the documented findings as noted in the resident documentation with any exceptions or additions as noted here. Resting in bed reporting adequately controlled lower back pain on present regimen and positioning. Reports no SOB, chest pain, abd pain. On examination, S1/S2 nl RRR no MCG. CTAB. Abd NT/ND BS+ve. Bilateral lower extremity edema to the midshin. Hyponatremia - likely displaced arterial volume with LE swelling. Fluid restrict, encourage PO intake of meals with low albumin. Consider nutrition consult. Continue furosemide today and consider further based on response. Anemia, hypochromic, acute on chronic in the setting of CKDIV - trend CBC daily and transfuse at 7 or with symptoms. Baseline of ~8. Right heel ulcer, diabetic - continue cefepime, f/u wound cultures. Wound care consult. Pulmonary edema with HFpEF - diuresis as noted above. Trend BMP. Else see resident documentation as noted. Subjective Patient evaluated at bedside this morning, notes that the primary symptom that brought her in was her back pain, which she thinks was due to her inability to acquire a hospital bed. Notes that she can't sleep on her current bed or couch because she can't get up, has been sleeping in bedside chair. Denies red flag sx. Denies shortness of breath at this time. Notes that heel ulcer has been present for >1 year, has never fully healed but seemed to have gotten worse in the 3 days since discharge from rehab despite home health coming to change dressing. Review of Systems Review of Systems: as per HPI Physical Exam Physical Exam: General: Alert and oriented. No acute distress Cardiac: Regular rate and rhythm, no murmurs appreciated Respiratory: Lungs clear to auscultation bilaterally, No increased work of breathing Abdominal: Soft, non-tender, non-distended. Bowel sounds present. Extremities: RLE with clean, dry dressing over right heel. Bilateral LE edema up to the calf. Results & Data Results & Data Vital Signs (Past 12 Hours) Vital Signs Temp Pulse Pulse Resp BP BP Pulse Ox 07/28/23 07:03 36.7 C 68 18 143/72 H 100 07/28/23 03:31 36.5 C 69 18 116/69 99 07/28/23 00:46 72 07/27/23 23:49 36.6 C 72 20 99/76 L 100 07/27/23 23:20 07/27/23 22:09 75 18 97 07/27/23 22:09 142/81 H 07/27/23 22:00 98 H 22 99 07/27/23 21:31 136/74 07/27/23 21:31 72 24 99 07/27/23 21:30 71 25 H 99 07/27/23 21:01 72 18 100 07/27/23 21:01 142/65 H 07/27/23 21:00 72 21 99 07/27/23 20:31 71 19 100 07/27/23 20:31 144/65 H 07/27/23 20:30 72 21 99 07/27/23 20:16 72 21 99 07/27/23 20:16 139/69 07/27/23 20:16 71 18 139/69 99 07/27/23 20:00 71 11 L O2 Del Method O2 Flow Rate 07/28/23 07:03 Nasal Cannula 2 07/28/23 03:31 Nasal Cannula 2.0 07/28/23 00:46 07/27/23 23:49 Nasal Cannula 2 07/27/23 23:20 Nasal Cannula 2 07/27/23 22:09 07/27/23 22:09 07/27/23 22:00 07/27/23 21:31 07/27/23 21:31 07/27/23 21:30 07/27/23 21:01 07/27/23 21:01 07/27/23 21:00 07/27/23 20:31 07/27/23 20:31 07/27/23 20:30 07/27/23 20:16 07/27/23 20:16 07/27/23 20:16 Room Air 07/27/23 20:00 Resident Activity Tracking Resident Involvement: Resident Care Provided Care Provided: Adult Hospital Medicine (2) Diabetic foot ulcer Diabetes mellitus type: type 2 Diabetic foot ulcer location: heel Laterality : right Non-pressure ulcer stage: with fat layer exposed Qualified Code(s): E11.621 - Type 2 diabetes mellitus with foot ulcer; L97.412 - Non-pressure chronic ulcer of right heel and midfoot with fat layer exposed (8) Hypertension Hypertension type: primary hypertension Qualified Code(s): I10 - Essential (primary) hypertension (10) Anemia Anemia type: unspecified type Qualified Code(s): D64.9 - Anemia, unspecified
--- NOTE | 2023-07-28 07:47 | XRay Report ---
XR foot RT 2V HISTORY: 63 years-old Female heel ulcer soft tissue ulcer of the heel pad. Clinical concern for poss ible osteomyelitis COMPARISON: Ankle radiographs 05/05/2023 TECHNIQUE: 2 views of the right foot FINDINGS: Diffuse soft tissue swelling. Arterial calcifications. Spurring of the calcaneus. Mild to moderate mu ltifocal osteoarthritis. No acute fracture, dislocation or osseous erosion. Ulcer of the heel pad is noted. IMPRESSION: Diffuse soft tissue swelling without acute osseous abnormality identified. ACT 112: Negative or not required by law. The above report was generated using voice recognition software. It may contain grammatical, syntax o r spelling errors. Electronically signed by: Bryan Manrique M.D. 07/28/2023 7:46 AM
[2023-07-28] MEDS: PANTOprazole 40 MG TAB PO SCH (07:50)
[2023-07-28] MEDS: FERROUS SULFATE 325 MG TAB PO SCH (07:51)
[2023-07-28] MEDS: HEPARIN SOD 5,000 UNIT/0.5 ML VIAL SQ SCH (07:51)
[2023-07-28] MEDS: CHOLECALCIFEROL 25 MCG (1000 UNITS) TAB PO SCH (07:52)
[2023-07-28] MEDS: CYANOCOBALAMIN (B-12) 500 MCG TABLET PO SCH (07:52)
[2023-07-28] MEDS: amLODIPine BESYLATE 5 MG TAB PO SCH (07:52)
[2023-07-28] MEDS: FLUTICASONE PROPIONATE NA SPR 16 GM BTL NAE SCH (07:53)
[2023-07-28] MEDS: INSULIN ASPART PER UNIT CHARGE SC SCH (08:15)
[2023-07-28] MEDS: LANTUS PER UNIT CHARGE SQ SCH (08:15)
[2023-07-28] MEDS: FOLIC ACID 1 MG TAB PO SCH (08:17)
[2023-07-28] MEDS: CEFEPIME 2,000 MG in SYRINGE 0 ML IV SCH (09:41)
--- NOTE | 2023-07-28 10:45 | Electrocardiogram Report ---
Test Reason : Blood Pressure : / mmHG Vent. Rate : 072 BPM Atrial Rate : 000 BPM P-R Int : 000 ms QRS Dur : 148 ms QT Int : 456 ms P-R-T Axes : 000 -57 053 degrees QTc Int : 499 ms Sinus rhythm Right bundle branch block Left anterior fascicular block Bifascicular block Minimal voltage criteria for LVH, may be normal variant ( R in aVL ) Abnormal ECG When compared with ECG of 03-MAY-2023 23:48, No significant change Confirmed by Catrachito Lopez ([id number]) on 07/28/2023 10:44:36 AM Referred By: REFERRED SELF Confirmed By:Catrachito Lopez
[2023-07-28 13:00] LABS: Appearance Urine Clear (Clear); Bacteria Urine Automated None Seen (None Seen); Bilirubin Urine Negative (Negative); Blood Urine Trace (Negative); Color Urine Yellow; Epithelial Cell Urine Auto 0-2 /hpf (0-2); Glucose Urine UA 1+ (Negative); Ketones Urine Negative (Negative); Leukocyte Esterase Urine Negative (Negative); Nitrite Urine Negative (Negative); Protein Urine 3+ (Negative); Specific Gravity Urine 1.012 (1.000-1.030); Urobilinogen Urine Negative (Negative); WBC Urine Automated 0-5 /hpf (0-5)
[2023-07-28 14:48] LABS: ANTI-Xa, UFH(UnfractionatedHep < 0.10 IU/ml (0.3-0.7)
[2023-07-28] MEDS: MAGNESIUM SULFATE / D5W 1 GM/100 ML BAG IV SCH (18:33)
[2023-07-28] MEDS: AMITRIPTYLINE HCL 100 MG TAB PO SCH (20:55)
[2023-07-28] MEDS: ATORVASTATIN 40 MG TAB PO SCH (20:55)
[2023-07-28] MEDS ORDERED: SIMVASTATIN 40 MG TAB PO SCH (21:00)
[2023-07-28] MEDS: ACETAMINOPHEN 325 MG TAB PO PRN (21:14)
--- OUTSIDE RECORDS SUMMARY | 2023-07-28 23:01 | External Medical Summary ---
Author Name Unknown Address Unknown Organization [facility] [address] [place] [id number] Laboratory Report Ordering Provider Test Date Status BRONWYN BERNARD 07/13/2023 05:25:00 Final Observation Date Value Abnormality Reference (Units ) Status BUN 07/13/2023 05:25:00 56 Above high normal 6-20 (mg/dL) Final Creatinine 07/13/2023 05:25:00 2.1 Above high normal 0.5-1.0 (mg/dL) Final Glomerular filtration rate/1.73 sq M.predicted [Volume Rate/Area] in Serum, Plasma or Blood by Creatinine-based formula (CKD-EPI) 07/13/2023 05:25:00 27 Below low normal >=60 (mL/min) Final eGFR is calculated based on the CKD-EPI 2020 equation Sodium 07/13/2023 05:25:00 137 135-146 (m mol/L) Final Potassium 07/13/2023 05:25:00 4.7 3.5-5.1 (m mol/L) Final Cl 07/13/2023 05:25:00 103 98-107 (mm ol/L) Final CO2 07/13/2023 05:25:00 24 22-32 (mmo l/L) Final Anion gap 07/13/2023 05:25:00 10 7-15 (mmol /L) Final Glucose 07/13/2023 05:25:00 130 Above high normal 70 -120 (mg/dL) Final Albumin 07/13/2023 05:25:00 2.6 Below low normal 3.8 -5.0 (g/dL) Final AST (Aspartate aminotransferase) 07/13/2023 05:25:00 16 10-35 (U/L) Fin al Alk Phos 07/13/2023 05:25:00 127 35-130 (U/ L) Final Bilirubin, Total 07/13/2023 05:25:00 <0.2 <=1 .2 (mg/dL) Final Calcium 07/13/2023 05:25:00 8.6 8.4-10.2 ( mg/dL) Final Protein 07/13/2023 05:25:00 6.2 6.0-8.3 (g /dL) Final ALT (Alanine aminotransferase) 07/13/2023 05:25:00 <5 Below low normal 10-35 (U/L) Final Performing Location [facility] - [facility] [address] [place] [id number]
--- OUTSIDE RECORDS SUMMARY | 2023-07-28 23:01 | External Medical Summary ---
Author Name Unknown Address Unknown Organization K1F:[facility] - [address] [place] [address] Laboratory Report Ordering Provider Test Date Status BRONWYN BERNARD 07/20/2023 05:13:00 Final Observation Date Value Abnormality Reference (Units ) Status BUN 07/20/2023 05:13:00 61 Above high normal 6-20 (mg/dL) Final Creatinine 07/20/2023 05:13:00 2.0 Above high normal 0.5-1.0 (mg/dL) Final Glomerular filtration rate/1.73 sq M.predicted [Volume Rate/Area] in Serum, Plasma or Blood by Creatinine-based formula (CKD-EPI) 07/20/2023 05:13:00 27 Below low normal >=60 (mL/min) Final eGFR is calculated based on the CKD-EPI 2020 equation Sodium 07/20/2023 05:13:00 133 Below low normal 135 -146 (mmol/L) Final Potassium 07/20/2023 05:13:00 4.5 3.5-5.1 (m mol/L) Final Cl 07/20/2023 05:13:00 99 98-107 (mm ol/L) Final CO2 07/20/2023 05:13:00 23 22-32 (mmo l/L) Final Anion gap 07/20/2023 05:13:00 11 7-15 (mmol /L) Final Glucose 07/20/2023 05:13:00 169 Above high normal 70 -120 (mg/dL) Final Albumin 07/20/2023 05:13:00 2.3 Below low normal 3.8 -5.0 (g/dL) Final AST (Aspartate aminotransferase) 07/20/2023 05:13:00 14 10-35 (U/L) Fin al Alk Phos 07/20/2023 05:13:00 127 35-130 (U/ L) Final Bilirubin, Total 07/20/2023 05:13:00 <0.2 <=1 .2 (mg/dL) Final Calcium 07/20/2023 05:13:00 8.5 8.4-10.2 ( mg/dL) Final Protein 07/20/2023 05:13:00 5.4 Below low normal 6.0 -8.3 (g/dL) Final ALT (Alanine aminotransferase) 07/20/2023 05:13:00 <5 Below low normal 10-35 (U/L) Final Performing Location LABORATORY [facility] - [address] [place], [place] [address]ang[place] [address]
--- OUTSIDE RECORDS SUMMARY | 2023-07-28 23:01 | External Medical Summary ---
Author Name Unknown Address Unknown Organization K1F:[facility] - [address] [place] [address] Laboratory Report Ordering Provider Test Date Status BRONWYN BERNARD 07/23/2023 04:53:00 Final Observation Date Value Abnormality Reference (Units ) Status WBC, Total 07/23/2023 04:53:00 8.31 4.00-10.80 (K/uL) Final RBC 07/23/2023 04:53:00 2.74 3.85-5.15 (M/uL) Final Hemoglobin 07/23/2023 04:53:00 7.7 Below low normal 12.0-15.3 (g/dL) Final HCT 07/23/2023 04:53:00 24.7 Below low normal 36.0-45.2 (%) Final MCV 07/23/2023 04:53:00 90.1 81.5-97.5 (fL) Final MCH 07/23/2023 04:53:00 28.1 27.0-34.0 (pg) Final MCHC 07/23/2023 04:53:00 31.2 32.0-36.0 (g/dL) Final RDW 07/23/2023 04:53:00 15.8 11.5-15.5 (%) Final Platelets 07/23/2023 04:53:00 300 140-400 (K/uL) Final MPV 07/23/2023 04:53:00 11.1 6.6-11.1 (fL) Final Nucleated erythrocytes/100 leukocytes [Ratio] in Blood by Automated count 07/23/2023 04:53:00 0 <=0 (/100 WBCs) Final Performing Location LABORATORY [facility] - [address] [place] [address]
--- OUTSIDE RECORDS SUMMARY | 2023-07-28 23:01 | External Medical Summary ---
Author Name Unknown Address Unknown Organization K1F:[facility] - [address] [place] [address] Laboratory Report Ordering Provider Test Date Status BRONWYN BERNARD 07/11/2023 03:44:00 Final Observation Date Value Abnormality Reference (Units ) Status SYNC LEUKOCYTES IN BLOOD BY AUTOMATED COUNT 07/11/2023 03:44:00 8.30 4.00-10.80 (K/uL) Final Segs 07/11/2023 03:44:00 63.0 40.0-75.0 (%) Final Lymphs % 07/11/2023 03:44:00 27.0 18.0-42.0 (%) Final Monos 07/11/2023 03:44:00 6.0 1.0-11.0 (%) Final Eosinophils 07/11/2023 03:44:00 3.1 0.0-6.0 (%) Final Basos 07/11/2023 03:44:00 0.5 0.0-2.0 (%) Final Immature Granulocyte, Percent 07/11/2023 03:44:00 0.4 0.0-2.0 (%) Final Absolute Segs 07/11/2023 03:44:00 5.23 1.80-7.70 (K/uL) Final Lymphs, absolute 07/11/2023 03:44:00 2.24 1.00-4.80 (K/ul) Final Monos, Abs 07/11/2023 03:44:00 0.50 0.00-1.10 (K/uL) Final Eos, Abs 07/11/2023 03:44:00 0.26 0.00-0.70 (K/uL) Final Basos, Abs 07/11/2023 03:44:00 0.04 0.00-0.20 (K/uL) Final Immature Granulocytes, Number 07/11/2023 03:44:00 0.03 0.00-0.20 (K/uL) Final Performing Location LABORATORY [facility] - [facility] [place] [address] [place] [address]
--- OUTSIDE RECORDS SUMMARY | 2023-07-28 23:01 | External Medical Summary ---
Author Name Unknown Address Unknown Organization K1F:[facility] - [address] [place] [address] Laboratory Report Ordering Provider Test Date Status BRONWYN BERNARD 07/20/2023 05:13:00 Final Observation Date Value Abnormality Reference (Units ) Status SYNC LEUKOCYTES IN BLOOD BY AUTOMATED COUNT 07/20/2023 05:13:00 7.68 4.00-10.80 (K/uL) Final Segs 07/20/2023 05:13:00 61.1 40.0-75.0 (%) Final Lymphs % 07/20/2023 05:13:00 25.1 18.0-42.0 (%) Final Monos 07/20/2023 05:13:00 8.6 1.0-11.0 (%) Final Eosinophils 07/20/2023 05:13:00 4.0 0.0-6.0 (%) Final Basos 07/20/2023 05:13:00 0.4 0.0-2.0 (%) Final Immature Granulocyte, Percent 07/20/2023 05:13:00 0.8 0.0-2.0 (%) Final Absolute Segs 07/20/2023 05:13:00 4.69 1.80-7.70 (K/uL) Final Lymphs, absolute 07/20/2023 05:13:00 1.93 1.00-4.80 (K/ul) Final Monos, Abs 07/20/2023 05:13:00 0.66 0.00-1.10 (K/uL) Final Eos, Abs 07/20/2023 05:13:00 0.31 0.00-0.70 (K/uL) Final Basos, Abs 07/20/2023 05:13:00 0.03 0.00-0.20 (K/uL) Final Immature Granulocytes, Number 07/20/2023 05:13:00 0.06 0.00-0.20 (K/uL) Final Performing Location LABORATORY [facility] - [facility] [address] [place] [address]
--- OUTSIDE RECORDS SUMMARY | 2023-07-28 23:01 | External Medical Summary ---
Author Name Unknown Address Unknown Organization K1F:[facility] - [address] [place] [address] Laboratory Report Ordering Provider Test Date Status BRONWYN BERNARD 07/23/2023 04:53:00 Final Observation Date Value Abnormality Reference (Units ) Status SYNC LEUKOCYTES IN BLOOD BY AUTOMATED COUNT 07/23/2023 04:53:00 8.31 4.00-10.80 (K/uL) Final Segs 07/23/2023 04:53:00 62.8 40.0-75.0 (%) Final Lymphs % 07/23/2023 04:53:00 23.8 18.0-42.0 (%) Final Monos 07/23/2023 04:53:00 8.5 1.0-11.0 (%) Final Eosinophils 07/23/2023 04:53:00 3.6 0.0-6.0 (%) Final Basos 07/23/2023 04:53:00 0.6 0.0-2.0 (%) Final Immature Granulocyte, Percent 07/23/2023 04:53:00 0.7 0.0-2.0 (%) Final Absolute Segs 07/23/2023 04:53:00 5.21 1.80-7.70 (K/uL) Final Lymphs, absolute 07/23/2023 04:53:00 1.98 1.00-4.80 (K/ul) Final Monos, Abs 07/23/2023 04:53:00 0.71 0.00-1.10 (K/uL) Final Eos, Abs 07/23/2023 04:53:00 0.30 0.00-0.70 (K/uL) Final Basos, Abs 07/23/2023 04:53:00 0.05 0.00-0.20 (K/uL) Final Immature Granulocytes, Number 07/23/2023 04:53:00 0.06 0.00-0.20 (K/uL) Final Performing Location LABORATORY [facility] - [facility] [address] [place] [address]
--- OUTSIDE RECORDS SUMMARY | 2023-07-28 23:01 | External Medical Summary | Summary of Care ---
Author Name Unknown Organization [facility] Address [address] [place] [address] Phone [phone] Care Team Providers Care Parking Enforcement Officer Name Role Phone Natali Langston Primary Care Provider Encounter Details Date Type Department Care Team (Latest Contact Info) Description 01/25/2023 4:40 PM EST - 01/25/2023 11:59 PM EST Hospital Encounter Radiology Film File [address] [place] [address] Discharge Disposition: Home - Self Care Allergies Active Allergy Reactions Criticality Noted Date Comments Amoxicillin 06/26/2014 Clarithromycin Other (Please comment) High 01/16/2023 Heart racing Dextromethorphan Hives High 01/16/2023 Doxylamine Hives High 01/16/2023 Food (See Comments) Hives 06/20/2023 Fingerprint's brand 7 Grain Bread Latex 06/18/2014 Sjgyccyis-Iaxtjoguyf-Yq-Ap ap Edema face/lips/tongue,It katie High 11/11/2010 Sulfa Antibiotics Other (Please comment),Rash 08/03/2000 malaise documented as of this encounter (statuses as of 07/05/2023) Medications No known medicationsdocumented as of this encounter (statuses as of 07/05/2023) Active Problems Problem Noted Date Diagnosed Date Anasarca 06/18/2023 Osteomyelitis of right foot 06/18/2023 Iron deficiency anemia 06/18/2023 (HFpEF) heart failure with preserved ejection fr action 06/17/2023 Moderate tricuspid regurgitation 06/08/2023 Mild mitral stenosis 06/05/2023 Mitral valve insufficiency 06/03/2023 Mild tricuspid regurgitation 06/03/2023 Moderate pulmonary hypertension 06/03/2023 AV junctional rhythm 06/03/2023 Chronic kidney disease, stage IV (severe) 2023 Class 3 severe obesity in adult 06/03/2023 Ambulatory dysfunction 04/24/2023 Diabetic ulcer of right heel 04/12/2023 Anxiety 01/16/2023 Fibromyalgia 01/16/2023 Gastroesophageal reflux disease 01/16/2023 Type 2 diabetes mellitus, wi th long-term current use of insulin 06/18/2014 Overview: ICD-10 update of inactive term Hypertension 06/18/2014 Hypothyroid 06/18/2014 documented as of this encounter (statuses as of 07/05/2023) Resolved Problems Problem Noted Date Diagnosed Date Resolved Date Cellulitis of index finger 06/19/2023 0 06/25/2023 Chest pain 06/17/2023 06/18/2023 Pneumonia of right lower lob e due to infectious organism 06/17/2023 06/18/2023 BPPV (benign paroxysmal positional vertigo) 06/17/2023 06/18/2023 Hypokalemia 06/17/2023 06/19/2023 Hypomagnesemia 06/17/2023 06/25/2023 Acute on chronic diastolic c ongestive heart failure 06/03/2023 06/25/2023 documented as of this encounter (statuses as of 07/05/2023) Immunizations Name Administration Dates Next Due PPD 10/08/2018 documented as of this encounter Social History Tobacco Use Types Packs/Day Years Used Date Smoking Tobacco: Every Day Cigarettes 2 Smokeless Tobacco: Never Alcohol Use Standard Drinks/Week Comments No 0 (1 standard drink = 0.6 oz pur e alcohol) Sex and Gender Information Value Date Recorded Sex Assigned at Not on file Gender Identity Not on file Sexual Orientation Not on file Job Start Date Occupation Industry Not on file Not on file Not on file documented as of this encounter Plan of Treatment Upcoming Encounters Date Type Department Care Team (Late st Contact Info) Description 08/31/2023 10:20 AM EDT Office Visit Infectious Disease [facility] [place] [facility] [place] [phone] [facility] [address] [facility] [phone] Health Maintenance Due Date Last Done Comments Depression Screening 1972 HIV Screening 1975 Diabetic Eye Exam 1978 Diabetic Foot Exam 1978 Nephrology Referral 1978 PTH 1978 HPV/Co-Test 1990 Mammogram 2000 Cologuard 2005 Colonoscopy 2005 Colorectal Cancer Screening 2005 Fecal Occult Blood Test 2005 Sigmoidoscopy 2005 DTaP,Tdap,and Td Vaccines (2 - Tdap) 11/03/2008 11/03/1998 Cervical Cancer Screening 11/11/2013 Pap Smear 11/11/2013 11/11/2010, 04/2010, 12/10/2002, Additional history exists Pneumococcal Vaccine: Pediatrics (0 to 5 Years) and At-Risk Patients (6 to 64 Years) (3 of 3 - PCV) 01/26/2017 01/27/2016, 07/10/2011, 01/18/1996 Albumin/Creatinine Ratio 11/20/2019 019, 2001, 07/09/2000, Additional history exists COVID-19 Vaccine (2 - 2022- season) 2022 08/24/2020 Zoster Vaccines (2 of 2) 06/15/2023 04/20/2023 Influenza Vaccine (FLU shot) (Season Ended) 2023 12/18/2017, 10/24/2016, 01/11/2016, Additional history exists Lipid Panel 11/20/2023 11/19/2018, 01/10, 01/14/2001, Additional history exists HbA1c 12/03/2023 06/02/2023, 11/10, 01/22/2018, Additional history exists GFR 01/03/2024 07/04/2023, 06/10, 06/25/2023, Additional history exists Phosphate 06/24/2024 06/25/2023, 06/10, 06/23/2023, Additional history exists TSH 06/26/2024 06/27/2023, 04/0 07/2023, 06/02/2023, Additional history exists Hgb 07/03/2024 07/04/2023, 06/10, 06/25/2023, Additional history exists GARDASIL-HPV IMMUNIZATION SERIES Aged Out No longer eligible based on patient's age to complete this topic Hepatitis B Aged Out No longer eligi ble based on patient's age to complete this topic MENINGOCOCCAL (MENACTRA/MENVEO) Aged Out No longer eligible based on patient's age to complete this topic documented as of this encounter Medical Devices Not on filedocumented as of this encounter Procedures Procedure Name Priority Date/Time Associated Diagnosis Comments RADIOLOGY EXAM - CT (IMAGES ONLY, NO REPORT) Routine 01/25/2023 4:40 PM EST documented in this encounter Results * RADIOLOGY EXAM - CT (IMAGES ONLY, NO REPORT) (01/25/2023 4:40 PM EST) 01/25/2023 4:37 PM EST Narrative Scheduling, Silent - 07/04/2023 12:06 PM EDT This is an imaging study not interpreted or resulted by a [facility]ologist. Ayana Summers MD RAD CT documented in this encounter Advance Directives Documents on File Type Date Recorded Patient Transaction Advisory Services Manager Expl anation POLST 06/17/2023 [place] [facility] FOR LIFE-SUSTAINING TREATMENT Latest Code Status on File Code Status Date Activated Date Inactivated Comments Full Code 06/17/2023 9:38 PM 06/25/2023 5:13 PM This o rder reflects the patients wishes and were consensually agreed upon. Question Answer Comments Discussion of Advance Directives occurred with: Patient Code Status History Code Status Date Activated Date Inactivated Comments Full Code 06/03/2023 2:50 AM 06/13/2023 7:19 PM This o rder reflects the patients wishes and were consensually agreed upon. Question Answer Comments Discussion of Advance Directives occurred with: Patient Care Teams Parking Enforcement Officer Relationship Specialty Start Date End Date Natali Langston DO [address] [place] [address] [place] [address] PCP - General Family Medicine 06/18/14 documented as of this encounter
--- OUTSIDE RECORDS SUMMARY | 2023-07-28 23:01 | External Medical Summary ---
Author Name Unknown Address Unknown Organization [facility] - [address] [place] [address] Laboratory Report Ordering Provider Test Date Status BRONWYN BERNARD 07/23/2023 04:53:00 Final Observation Date Value Abnormality Reference (Units ) Status BUN 07/23/2023 04:53:00 72 Above high normal 6-20 (mg/dL) Final Creatinine 07/23/2023 04:53:00 2.2 Above high normal 0.5-1.0 (mg/dL) Final Glomerular filtration rate/1.73 sq M.predicted [Volume Rate/Area] in Serum, Plasma or Blood by Creatinine-based formula (CKD-EPI) 07/23/2023 04:53:00 24 Below low normal >=60 (mL/min) Final eGFR is calculated based on the CKD-EPI 2020 equation Sodium 07/23/2023 04:53:00 133 Below low normal 135 -146 (mmol/L) Final Potassium 07/23/2023 04:53:00 4.3 3.5-5.1 (m mol/L) Final Cl 07/23/2023 04:53:00 98 98-107 (mm ol/L) Final CO2 07/23/2023 04:53:00 25 22-32 (mmo l/L) Final Anion gap 07/23/2023 04:53:00 10 7-15 (mmol /L) Final Glucose 07/23/2023 04:53:00 207 Above high normal 70 -120 (mg/dL) Final Albumin 07/23/2023 04:53:00 2.4 Below low normal 3.8 -5.0 (g/dL) Final AST (Aspartate aminotransferase) 07/23/2023 04:53:00 13 10-35 (U/L) Fin al Alk Phos 07/23/2023 04:53:00 139 Above high normal 35 -130 (U/L) Final Bilirubin, Total 07/23/2023 04:53:00 <0.2 <=1 .2 (mg/dL) Final Calcium 07/23/2023 04:53:00 8.5 8.4-10.2 ( mg/dL) Final Protein 07/23/2023 04:53:00 5.4 Below low normal 6.0 -8.3 (g/dL) Final ALT (Alanine aminotransferase) 07/23/2023 04:53:00 <5 Below low normal 10-35 (U/L) Final Performing Location LABORATORY [facility] - [facility] [place] [address]
--- OUTSIDE RECORDS SUMMARY | 2023-07-28 23:01 | External Medical Summary ---
Author Name Unknown Address Unknown Organization [facility] - [address] [place] [address] Laboratory Report Ordering Provider Test Date Status BRONWYN BERNARD 07/06/2023 10:45:00 Final Observation Date Value Abnormality Reference (Units ) Status BUN 07/06/2023 10:45:00 51 Above high normal 6-20 (mg/dL) Final Creatinine 07/06/2023 10:45:00 2.0 Above high normal 0.5-1.0 (mg/dL) Final Glomerular filtration rate/1.73 sq M.predicted [Volume Rate/Area] in Serum, Plasma or Blood by Creatinine-based formula (CKD-EPI) 07/06/2023 10:45:00 28 Below low normal >=60 (mL/min) Final eGFR is calculated based on the CKD-EPI 2020 equation Sodium 07/06/2023 10:45:00 134 Below low normal 135 -146 (mmol/L) Final Potassium 07/06/2023 10:45:00 4.1 3.5-5.1 (m mol/L) Final Cl 07/06/2023 10:45:00 100 98-107 (mm ol/L) Final CO2 07/06/2023 10:45:00 24 22-32 (mmo l/L) Final Anion gap 07/06/2023 10:45:00 10 7-15 (mmol /L) Final Glucose 07/06/2023 10:45:00 227 Above high normal 70 -120 (mg/dL) Final Albumin 07/06/2023 10:45:00 2.4 Below low normal 3.8 -5.0 (g/dL) Final AST (Aspartate aminotransferase) 07/06/2023 10:45:00 15 10-35 (U/L) Fin al Alk Phos 07/06/2023 10:45:00 131 Above high normal 35 -130 (U/L) Final Bilirubin, Total 07/06/2023 10:45:00 <0.2 <=1 .2 (mg/dL) Final Calcium 07/06/2023 10:45:00 8.1 Below low normal 8.4 -10.2 (mg/dL) Final Protein 07/06/2023 10:45:00 5.6 Below low normal 6.0 -8.3 (g/dL) Final ALT (Alanine aminotransferase) 07/06/2023 10:45:00 <5 Below low normal 10-35 (U/L) Final Per[facility] - [facility] [address] [place] [address]
--- OUTSIDE RECORDS SUMMARY | 2023-07-28 23:01 | External Medical Summary ---
Author Name Unknown Address Unknown Organization K1F:LABORATORY [facility] - [address] [place] [address] Ave. [place] [address] Laboratory Report Ordering Provider Test Date Status BRONWYN BERNARD 07/13/2023 05:25:00 Final Observation Date Value Abnormality Reference (Units ) Status WBC, Total 07/13/2023 05:25:00 8.55 4.00-10.80 (K/uL) Final RBC 07/13/2023 05:25:00 2.96 3.85-5.15 (M/uL) Final Hemoglobin 07/13/2023 05:25:00 8.2 Below low normal 12.0-15.3 (g/dL) Final HCT 07/13/2023 05:25:00 26.9 Below low normal 36.0-45.2 (%) Final MCV 07/13/2023 05:25:00 90.9 81.5-97.5 (fL) Final MCH 07/13/2023 05:25:00 27.7 27.0-34.0 (pg) Final MCHC 07/13/2023 05:25:00 30.5 32.0-36.0 (g/dL) Final RDW 07/13/2023 05:25:00 16.7 11.5-15.5 (%) Final Platelets 07/13/2023 05:25:00 294 140-400 (K/uL) Final MPV 07/13/2023 05:25:00 11.5 6.6-11.1 (fL) Final Nucleated erythrocytes/100 leukocytes [Ratio] in Blood by Automated count 07/13/2023 05:25:00 0 <=0 (/100 WBCs) Final Performing Location LABORATORY [facility] - [address] [place] [address]
--- OUTSIDE RECORDS SUMMARY | 2023-07-28 23:01 | External Medical Summary ---
Author Name Unknown Address Unknown Organization K1F:LABORATORY [facility] - [address] [place] [address] Ave. [place] [address] Laboratory Report Ordering Provider Test Date Status BRONWYN BERNARD 07/18/2023 04:50:00 Final Observation Date Value Abnormality Reference (Units ) Status WBC, Total 07/18/2023 04:50:00 7.75 4.00-10.80 (K/uL) Final RBC 07/18/2023 04:50:00 2.85 3.85-5.15 (M/uL) Final Hemoglobin 07/18/2023 04:50:00 7.9 Below low normal 12.0-15.3 (g/dL) Final HCT 07/18/2023 04:50:00 26.0 Below low normal 36.0-45.2 (%) Final MCV 07/18/2023 04:50:00 91.2 81.5-97.5 (fL) Final MCH 07/18/2023 04:50:00 27.7 27.0-34.0 (pg) Final MCHC 07/18/2023 04:50:00 30.4 32.0-36.0 (g/dL) Final RDW 07/18/2023 04:50:00 16.1 11.5-15.5 (%) Final Platelets 07/18/2023 04:50:00 299 140-400 (K/uL) Final MPV 07/18/2023 04:50:00 11.4 6.6-11.1 (fL) Final Nucleated erythrocytes/100 leukocytes [Ratio] in Blood by Automated count 07/18/2023 04:50:00 0 <=0 (/100 WBCs) Final Performing Location LABORATORY [facility] - [address] [place] [address]
--- OUTSIDE RECORDS SUMMARY | 2023-07-28 23:01 | External Medical Summary ---
Author Name Unknown Address Unknown Organization K1F:[facility]ORY [facility] - [address] [place] [address] Laboratory Report Ordering Provider Test Date Status BRONWYN BERNARD 07/06/2023 04:50:00 Final Observation Date Value Abnormality Reference (Units ) Status SYNC LEUKOCYTES IN BLOOD BY AUTOMATED COUNT 07/06/2023 04:50:00 9.04 4.00-10.80 (K/uL) Final Segs 07/06/2023 04:50:00 69.2 40.0-75.0 (%) Final Lymphs % 07/06/2023 04:50:00 20.7 18.0-42.0 (%) Final Monos 07/06/2023 04:50:00 6.7 1.0-11.0 (%) Final Eosinophils 07/06/2023 04:50:00 2.4 0.0-6.0 (%) Final Basos 07/06/2023 04:50:00 0.4 0.0-2.0 (%) Final Immature Granulocyte, Percent 07/06/2023 04:50:00 0.6 0.0-2.0 (%) Final Absolute Segs 07/06/2023 04:50:00 6.25 1.80-7.70 (K/uL) Final Lymphs, absolute 07/06/2023 04:50:00 1.87 1.00-4.80 (K/ul) Final Monos, Abs 07/06/2023 04:50:00 0.61 0.00-1.10 (K/uL) Final Eos, Abs 07/06/2023 04:50:00 0.22 0.00-0.70 (K/uL) Final Basos, Abs 07/06/2023 04:50:00 0.04 0.00-0.20 (K/uL) Final Immature Granulocytes, Number 07/06/2023 04:50:00 0.05 0.00-0.20 (K/uL) Final Performing Location LABORATORY [facility] - [facility] [address] [place] [address]
--- OUTSIDE RECORDS SUMMARY | 2023-07-28 23:01 | External Medical Summary ---
Author Name Unknown Address Unknown Organization K1F:LABORATORY [facility] - [address] [place] [address] Laboratory Report Ordering Provider Test Date Status BRONWYN BERNARD 07/11/2023 03:44:00 Final Observation Date Value Abnormality Reference (Units ) Status WBC, Total 07/11/2023 03:44:00 8.30 4.00-10.80 (K/uL) Final RBC 07/11/2023 03:44:00 2.82 3.85-5.15 (M/uL) Final Hemoglobin 07/11/2023 03:44:00 7.9 Below low normal 12.0-15.3 (g/dL) Final HCT 07/11/2023 03:44:00 25.8 Below low normal 36.0-45.2 (%) Final MCV 07/11/2023 03:44:00 91.5 81.5-97.5 (fL) Final MCH 07/11/2023 03:44:00 28.0 27.0-34.0 (pg) Final MCHC 07/11/2023 03:44:00 30.6 32.0-36.0 (g/dL) Final RDW 07/11/2023 03:44:00 16.6 11.5-15.5 (%) Final Platelets 07/11/2023 03:44:00 257 140-400 (K/uL) Final MPV 07/11/2023 03:44:00 11.7 6.6-11.1 (fL) Final Nucleated erythrocytes/100 leukocytes [Ratio] in Blood by Automated count 07/11/2023 03:44:00 0 <=0 (/100 WBCs) Final Performing Location LABORATORY [facility] - [address] [place] [address]
--- OUTSIDE RECORDS SUMMARY | 2023-07-28 23:01 | External Medical Summary ---
Author Name Unknown Address Unknown Organization [facility] - [address] [place] [address] Laboratory Report Ordering Provider Test Date Status BRONWYN BERNARD 07/11/2023 03:44:00 Final Observation Date Value Abnormality Reference (Units ) Status BUN 07/11/2023 03:44:00 57 Above high normal 6-20 (mg/dL) Final Creatinine 07/11/2023 03:44:00 2.1 Above high normal 0.5-1.0 (mg/dL) Final Glomerular filtration rate/1.73 sq M.predicted [Volume Rate/Area] in Serum, Plasma or Blood by Creatinine-based formula (CKD-EPI) 07/11/2023 03:44:00 26 Below low normal >=60 (mL/min) Final eGFR is calculated based on the CKD-EPI 2020 equation Sodium 07/11/2023 03:44:00 136 135-146 (m mol/L) Final Potassium 07/11/2023 03:44:00 4.3 3.5-5.1 (m mol/L) Final Cl 07/11/2023 03:44:00 102 98-107 (mm ol/L) Final CO2 07/11/2023 03:44:00 23 22-32 (mmo l/L) Final Anion gap 07/11/2023 03:44:00 11 7-15 (mmol /L) Final Glucose 07/11/2023 03:44:00 181 Above high normal 70 -120 (mg/dL) Final Albumin 07/11/2023 03:44:00 2.6 Below low normal 3.8 -5.0 (g/dL) Final AST (Aspartate aminotransferase) 07/11/2023 03:44:00 15 10-35 (U/L) Fin al Alk Phos 07/11/2023 03:44:00 129 35-130 (U/ L) Final Bilirubin, Total 07/11/2023 03:44:00 <0.2 <=1 .2 (mg/dL) Final Calcium 07/11/2023 03:44:00 8.3 Below low normal 8.4 -10.2 (mg/dL) Final Protein 07/11/2023 03:44:00 5.6 Below low normal 6.0 -8.3 (g/dL) Final ALT (Alanine aminotransferase) 07/11/2023 03:44:00 <5 Below low normal 10-35 (U/L) Final Performing Location [facility]ORY [facility] - [facility] [address]. [facility] [id number]
--- OUTSIDE RECORDS SUMMARY | 2023-07-28 23:01 | External Medical Summary | Summary of Care ---
Author Name Unknown Organization [facility] Address [address] [place] [address] Phone [phone] Care Team Providers Care Bullard Machine Operator Name Role Phone Natali Langston Primary Care Provider Encounter Details Date Type Department Care Team (Latest Contact Info) Description 05/04/2023 2:45 AM EST - 05/04/2023 11:59 PM EST Hospital Encounter Radiology Film File [address] [place] [address] Discharge Disposition: Home - Self Care Allergies Active Allergy Reactions Criticality Noted Date Comments Amoxicillin 06/26/2014 Clarithromycin Other (Please comment) High 01/16/2023 Heart racing Dextromethorphan Hives High 01/16/2023 Doxylamine Hives High 01/16/2023 Food (See Comments) Hives 06/20/2023 [employer]'s brand 7 Grain Bread Latex 06/18/2014 Snypwdvtg-Vipktwffyw-Ys-Ap ap Edema face/lips/tongue,It katie High 11/11/2010 Sulfa [...] 10:20 AM EDT Office Visit Infectious Disease [facility] [place] [address] Ricky Carnes [facility] [address] [facility] [address] Health Maintenance Due Date [...] - CT (IMAGES ONLY, NO REPORT) Routine 05/04/2023 2:45 AM EST documented in this encounter Results * RADIOLOGY EXAM - CT (IMAGES ONLY, NO REPORT) (05/04/2023 2:45 AM EST) 05/04/2023 2:45 AM EST Narrative Scheduling, Silent - 07/04/2023 10:33 AM EDT This is an imaging study not interpreted or resulted by a [facility] or [facility] contracted radiologist. Ayana Summers MD RAD CT documented in this encounter Advance Directives Documents on File Type Date Recorded Patient Principal Systems Engineer Expl anation POLST 06/17/2023 [place] OR [facility] FOR LIFE-SUSTAINING TREATMENT Latest Code Status on [...] Advance Directives occurred with: Patient Care Teams Bullard Machine Operator Relationship Specialty Start Date End Date Natali Langston DO [address] [place] [address] [place] [address] PCP - General Family Medicine 06/18/14 documented as of this encounter
--- OUTSIDE RECORDS SUMMARY | 2023-07-28 23:01 | External Medical Summary ---
Author Name Unknown Address Unknown Organization K1F:[facility]ATORY [facility] - [address] [place] [place] [address] Laboratory Report Ordering Provider Test Date Status BRONWYN BERNADR 07/18/2023 04:50:00 Final Observation Date Value Abnormality Reference (Units ) Status SYNC LEUKOCYTES IN BLOOD BY AUTOMATED COUNT 07/18/2023 04:50:00 7.75 4.00-10.80 (K/uL) Final Segs 07/18/2023 04:50:00 61.4 40.0-75.0 (%) Final Lymphs % 07/18/2023 04:50:00 26.2 18.0-42.0 (%) Final Monos 07/18/2023 04:50:00 7.7 1.0-11.0 (%) Final Eosinophils 07/18/2023 04:50:00 3.6 0.0-6.0 (%) Final Basos 07/18/2023 04:50:00 0.5 0.0-2.0 (%) Final Immature Granulocyte, Percent 07/18/2023 04:50:00 0.6 0.0-2.0 (%) Final Absolute Segs 07/18/2023 04:50:00 4.75 1.80-7.70 (K/uL) Final Lymphs, absolute 07/18/2023 04:50:00 2.03 1.00-4.80 (K/ul) Final Monos, Abs 07/18/2023 04:50:00 0.60 0.00-1.10 (K/uL) Final Eos, Abs 07/18/2023 04:50:00 0.28 0.00-0.70 (K/uL) Final Basos, Abs 07/18/2023 04:50:00 0.04 0.00-0.20 (K/uL) Final Immature Granulocytes, Number 07/18/2023 04:50:00 0.05 0.00-0.20 (K/uL) Final Performing Location LABORATORY [facility] - [facility] [address] [place] [address]
--- OUTSIDE RECORDS SUMMARY | 2023-07-28 23:01 | External Medical Summary ---
Author Name Unknown Address Unknown Organization K1F:LABORATORY [facility] - [address] [place] [address] Laboratory Report Ordering Provider Test Date Status BRONWYN BERNARD 07/06/2023 04:50:00 Final Observation Date Value Abnormality Reference (Units ) Status WBC, Total 07/06/2023 04:50:00 9.04 4.00-10.80 (K/uL) Final RBC 07/06/2023 04:50:00 3.02 3.85-5.15 (M/uL) Final Hemoglobin 07/06/2023 04:50:00 8.5 Below low normal 12.0-15.3 (g/dL) Final HCT 07/06/2023 04:50:00 29.9 Below low normal 36.0-45.2 (%) Final MCV 07/06/2023 04:50:00 99.0 81.5-97.5 (fL) Final MCH 07/06/2023 04:50:00 28.1 27.0-34.0 (pg) Final MCHC 07/06/2023 04:50:00 28.4 32.0-36.0 (g/dL) Final RDW 07/06/2023 04:50:00 17.6 11.5-15.5 (%) Final Platelets 07/06/2023 04:50:00 219 140-400 (K/uL) Final MPV 07/06/2023 04:50:00 11.1 6.6-11.1 (fL) Final Nucleated erythrocytes/100 leukocytes [Ratio] in Blood by Automated count 07/06/2023 04:50:00 0 <=0 (/100 WBCs) Final Performing Location LABORATORY [facility] - [address] [place] [address]
--- OUTSIDE RECORDS SUMMARY | 2023-07-28 23:01 | External Medical Summary ---
Author Name Unknown Address Unknown Organization K1F:LABORATORY [facility] - [address] [place] [address] Laboratory Report Ordering Provider Test Date Status BRONWYN BERNARD 07/20/2023 05:13:00 Final Exclude Heart Failure: <300 pg/mL
Diagnose Heart Failure:
Age <50 yr: >450 pg/mL
50-75 yr: >900 pg/mL
>75 yr: >1800 pg/mL
GFR is 30-59 mL/min: >1200 pg/mL or Age- adjusted values
GFR <30 mL/min: do not use, not reliable

Prognostic threshold: 1000 pg/mL Observation Date Value Abnormality Reference (Units ) Status BNP, Pro-hormone 07/20/2023 05:13:00 1960 Above high no rmal <300 (pg/mL) Final Performing Location LABORATORY [facility] - [address] [place] [address]
--- OUTSIDE RECORDS SUMMARY | 2023-07-28 23:01 | External Medical Summary | Summary of Care ---
Author Name Unknown Organization [facility] Address [address] [place] [address] Phone [phone] Care Team Providers Care Office Services Representative Name Role Phone Natali Langston Primary Care Provider Encounter Details Date Type Department Care Team (Latest Contact Info) Description 04/10/2023 12:35 AM EST - 04/10/2023 12:39 AM EST Hospital Encounter Radiology Film File [address] [place] [address] Discharge Disposition: Home - Self Care Allergies Active Allergy Reactions Criticality Noted Date Comments Amoxicillin 06/26/2014 Clarithromycin Other (Please comment) High 01/16/2023 Heart racing Dextromethorphan Hives High 01/16/2023 Doxylamine Hives High 01/16/2023 Food (See Comments) Hives 06/20/2023 [employer]'s brand 7 Grain Bread Latex 06/18/2014 Lmcbnsfdn-Dknxjlggjl-Me-Ap ap Edema face/lips/tongue,It katie High 11/11/2010 Sulfa [...] 10:20 AM EDT Office Visit Infectious Disease [facility] [place] [address] Ricky Carnes MD [address] [facility] [address] Health Maintenance Due Date [...] - CT (IMAGES ONLY, NO REPORT) Routine 04/10/2023 12:35 AM EST documented in this encounter Results * RADIOLOGY EXAM - CT (IMAGES ONLY, NO REPORT) (04/10/2023 12:35 AM EST) 04/10/2023 12:3 5 AM EST Narrative Scheduling, Silent - 07/04/2023 10:36 AM EDT This is an imaging study not interpreted or resulted by a [facility] or [facility] contracted radiologist. Ayana Summers MD RAD CT documented in this encounter Advance Directives Documents on File Type Date Recorded Patient Project Estimator Expl anation POLST 06/17/2023 [place] OR [facility] FOR LIFE-SUSTAINING TREATMENT Latest Code [...] Advance Directives occurred with: Patient Care Teams Office Services Representative Relationship Specialty Start Date End Date Natali Langston DO [address] [place] [address] [place] [address] PCP - General Family Medicine 06/18/14 documented as of this encounter
--- OUTSIDE RECORDS SUMMARY | 2023-07-28 23:01 | External Medical Summary ---
Author Name Unknown Address Unknown Organization K1F:[facility] - [address] [place] [address] Laboratory Report Ordering Provider Test Date Status BRONWYN BERNARD 07/13/2023 05:25:00 Final Observation Date Value Abnormality Reference (Units ) Status SYNC LEUKOCYTES IN BLOOD BY AUTOMATED COUNT 07/13/2023 05:25:00 8.55 4.00-10.80 (K/uL) Final Segs 07/13/2023 05:25:00 59.3 40.0-75.0 (%) Final Lymphs % 07/13/2023 05:25:00 29.2 18.0-42.0 (%) Final Monos 07/13/2023 05:25:00 7.3 1.0-11.0 (%) Final Eosinophils 07/13/2023 05:25:00 3.3 0.0-6.0 (%) Final Basos 07/13/2023 05:25:00 0.5 0.0-2.0 (%) Final Immature Granulocyte, Percent 07/13/2023 05:25:00 0.4 0.0-2.0 (%) Final Absolute Segs 07/13/2023 05:25:00 5.08 1.80-7.70 (K/uL) Final Lymphs, absolute 07/13/2023 05:25:00 2.50 1.00-4.80 (K/ul) Final Monos, Abs 07/13/2023 05:25:00 0.62 0.00-1.10 (K/uL) Final Eos, Abs 07/13/2023 05:25:00 0.28 0.00-0.70 (K/uL) Final Basos, Abs 07/13/2023 05:25:00 0.04 0.00-0.20 (K/uL) Final Immature Granulocytes, Number 07/13/2023 05:25:00 0.03 0.00-0.20 (K/uL) Final Performing Location LABORATORY [facility] - [facility] [address] [place] [address]
--- OUTSIDE RECORDS SUMMARY | 2023-07-28 23:01 | External Medical Summary ---
Author Name Unknown Address Unknown Organization K1F:LABORATORY [facility] - [address] [place] [address] Ave. [place] [place] [address] Laboratory Report Ordering Provider Test Date Status BRONWYN BERNARD 07/20/2023 05:13:00 Final Observation Date Value Abnormality Reference (Units ) Status WBC, Total 07/20/2023 05:13:00 7.68 4.00-10.80 (K/uL) Final RBC 07/20/2023 05:13:00 2.74 3.85-5.15 (M/uL) Final Hemoglobin 07/20/2023 05:13:00 7.6 Below low normal 12.0-15.3 (g/dL) Final HCT 07/20/2023 05:13:00 24.8 Below low normal 36.0-45.2 (%) Final MCV 07/20/2023 05:13:00 90.5 81.5-97.5 (fL) Final MCH 07/20/2023 05:13:00 27.7 27.0-34.0 (pg) Final MCHC 07/20/2023 05:13:00 30.6 32.0-36.0 (g/dL) Final RDW 07/20/2023 05:13:00 15.9 11.5-15.5 (%) Final Platelets 07/20/2023 05:13:00 291 140-400 (K/uL) Final MPV 07/20/2023 05:13:00 11.7 6.6-11.1 (fL) Final Nucleated erythrocytes/100 leukocytes [Ratio] in Blood by Automated count 07/20/2023 05:13:00 0 <=0 (/100 WBCs) Final Performing Location LABORATORY [facility] - [address] [place] [address]
--- OUTSIDE RECORDS SUMMARY | 2023-07-28 23:02 | External Medical Summary | Summary of Care ---
Author Name Unknown Organization [facility] Address [address] [place] [address] Phone [phone] Care Team Providers Care Lightout Examiner Name Role Phone Natali Langston Primary Care Provider Encounter Details Date Type Department Care Team (Late st Contact Info) Description 04/10/2023 Orders Only Unspecified Department Ayana Summers MD [address] [place], [place] [address] [address] Allergies Active Allergy Reactions Criticality Noted Date Comments Amoxicillin 06/26/2014 Clarithromycin Other (Please comment) High 01/16/2023 Heart racing Dextromethorphan Hives High 01/16/2023 Doxylamine Hives High 01/16/2023 Food (See Comments) Hives 06/20/2023 [employer] brand 7 Grain Bread Latex 06/18/2014 Auwmhkmja-Nmpbnzttrg-Ew-Ap ap Edema face/lips/tongue,It katie High 11/11/2010 Sulfa Antibiotics Other (Please comment),Rash 08/03/2000 malaise documented as of this encounter (statuses as of 07/04/2023) Medications No known medicationsdocumented as of this encounter (statuses as of 07/04/2023) Active Problems Problem Noted Date Diagnosed Date [...] as of this encounter (statuses as of 07/04/2023) Resolved Problems Problem Noted Date Diagnosed Date Resolved Date Cellulitis of index finger 06/19/2023 0 06/25/2023 Chest pain 06/17/2023 06/18/2023 Pneumonia of right lower lob e due to infectious organism 06/17/2023 06/18/2023 BPPV (benign paroxysmal positional vertigo) 06/17/2023 06/18/2023 Hypokalemia 06/17/2023 06/19/2023 Hypomagnesemia 06/17/2023 06/25/2023 Acute on chronic diastolic c ongestive heart failure 06/03/2023 06/25/2023 documented as of this encounter (statuses as of 07/04/2023) Immunizations Name Administration Dates Next Due PPD [...] 10:20 AM EDT Office Visit [facility]ious Disease [facility] [address] [place], [place] [address] [address] Ricky Carnes MD [address] [place] [facility] [place] [address] Health Maintenance Due Date Last Done [...] study not interpreted or resulted by a [facility] or [facility] contracted radiologist. Ayana Summers MD RAD CT documented in this encounter Additional Health Concerns Infection Onset Date Last Indicated Resolved Time Respiratory Rule-Out 06/03/2023 06/03/2023 024 3:32 AM EDT COVID-19 Rule-Out 06/03/2023 06/03/2023 06/03/2023 3:32 AM EDT Respiratory Rule-Out 06/17/2023 06/17/2023 024 8:01 PM EDT COVID-19 Rule-Out 06/17/2023 06/17/2023 06/17/2023 8:01 PM EDT Respiratory Rule-Out 06/19/2023 06/19/2023 024 9:15 PM EDT COVID-19 Rule-Out 06/19/2023 06/19/2023 06/19/2023 9:15 PM EDT Exposure Comment:Update 06/20/23 - Family that patient was reportedly exposed to had not been around patient since 06/09/23. No further concern for exposure. Covid exposure This patient has met the definition of exposure from being in close contact with someone who is infectious with SARS-CoV-2. If this patient remains asymptomatic, NO TBP is needed. If this patient becomes symptomatic, please initiate Enhanced Droplet with Respirator TBP while testing is performed. Determine what testing needs collected from the following options: - If the patient has NO prior COVID infection in the last 90 days, NAAT testing should be collected at days 1, 3, and 5 post-exposure. If no testing is performed or if testing is refused, this patient should be kept "No Roommate Due to Exposure" for 10 days. Infection Prevention and Control staff will review this patient during normal business hours for resolution of the Infection Status. Please note: this guidance is specific to patients in a healthcare facility. If this patient is discharged before completing all of the recommended testing, visit the CDC website for post-COVID exposure guidance in the community setting. 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
--- OUTSIDE RECORDS SUMMARY | 2023-07-28 23:02 | External Medical Summary ---
Author Name Unknown Address Unknown Organization K1F:LABORATORY [facility] - [address] [place] [address] Laboratory Report Ordering Provider Test Date Status BRONWYN BERNARD 06/27/2023 04:15:00 Final Observation Date Value Abnormality Reference (Units ) Status TSH 06/27/2023 04:15:00 1.70 0.27-4.20 (uIU/mL) Final Performing Location LABORATORY [facility] - [address] [place] [address]
--- OUTSIDE RECORDS SUMMARY | 2023-07-28 23:02 | External Medical Summary | Summary of Care ---
Author Name Unknown Organization [facility] Address [address] [place] [address] Phone [phone] Care Team Providers Care Market News Reporter Name Role Phone Natali Langston Primary Care Provider Encounter Details Date Type Department Care Team (Latest Contact Info) Description 04/10/2023 12:40 AM EST - 04/10/2023 11:59 PM EST Hospital Encounter Radiology Film File [address] [place] [address] Discharge Disposition: Home - Self Care Allergies Active Allergy Reactions Criticality Noted Date Comments Amoxicillin 06/26/2014 Clarithromycin Other (Please comment) High 01/16/2023 Heart racing Dextromethorphan Hives High 01/16/2023 Doxylamine Hives High 01/16/2023 Food (See Comments) Hives 06/20/2023 Spot [employer] brand 7 Grain Bread Latex 06/18/2014 Wjavsgopu-Xmxlogwiay-Ft-Ap ap Edema face/lips/tongue,It katie High 11/11/2010 Sulfa [...] 10:20 AM EDT Office Visit Infectious Disease [facility] Riccardo Arteaga [facility] [place] [address] Ricky Carnes MD [address] [facility] [address] Health Maintenance Due Date [...] CT (IMAGES ONLY, NO REPORT) Routine 04/10/2023 12:40 AM EST documented in this encounter Results * RADIOLOGY EXAM - CT (IMAGES ONLY, NO REPORT) (04/10/2023 12:40 AM EST) 04/10/2023 12:3 5 AM EST Narrative Scheduling, Silent - 07/04/2023 10:38 AM EDT This is an imaging study not interpreted or resulted by a [facility] or [facility] contracted radiologist. Ayana Summers MD RAD CT documented in this encounter Advance Directives Documents on File Type Date Recorded Patient Accessibility Lift Technician Expl anation POLST 06/17/2023 [place] OR [facility] FOR LIFE-SUSTAINING TREATMENT Latest Code Status [...] Advance Directives occurred with: Patient Care Teams Market News Reporter Relationship Specialty Start Date End Date Natali Langston DO [address] [place] [address] [place] [address] PCP - General Family Medicine 06/18/14 documented as of this encounter
--- OUTSIDE RECORDS SUMMARY | 2023-07-28 23:02 | External Medical Summary | Summary of Care ---
Author Name Unknown Organization [facility] Address [address] [place] [address] Phone [phone] Care Team Providers Care Thresher Broomcorn Name Role Phone Natali Langston Primary Care Provider Encounter Details Date Type Department Care Team (Late st Contact Info) Description 03/19/2023 Orders Only Unspecified Department Ayana Summers MD [address] [place], [place] [address]ist [place] [address] Allergies Active Allergy Reactions Criticality Noted Date Comments Amoxicillin 06/26/2014 Clarithromycin Other (Please comment) High 01/16/2023 Heart racing Dextromethorphan Hives High 01/16/2023 Doxylamine Hives High 01/16/2023 Food (See Comments) Hives 06/20/2023 b[employer]n's brand 7 Grain Bread Latex 06/18/2014 Bwymsgynz-Ykncjesabw-Zw-Ap ap Edema face/lips/tongue,It katie High 11/11/2010 Sulfa [...] 10:20 AM EDT Office Visit Infectious Disease [facility] Jenni [place] [address] [place], [place] [address] [address] Ricky Carnes MD [address] [place] [address] Health Maintenance Due Date Last Done [...] Date/Time Associated Diagnosis Comments RADIOLOGY EXAM - GENERAL RAD (IMAGES ONLY,NO REPORT) Routine 03/19/2023 6:30 AM EST documented in this encounter Results * RADIOLOGY EXAM - GENERAL RAD (IMAGES ONLY,NO REPORT) (03/19/2023 6:30 AM EST) 03/19/2023 6:26 AM EST Narrative Scheduling, Silent - 07/04/2023 12:08 PM EDT This is an imaging study not interpreted or resulted by a [facility] or [facility] radiologist. Ayana Summers MD RADIOLOGY (RAD GEN ERAL) documented in this encounter Additional Health Concerns [...] Documents on File Type Date Recorded Patient Parachute Repairer Expl anation POLST 06/17/2023 [place] OR [facility] FOR LIFE-SUSTAINING TREATMENT Latest Code Status on [...] Advance Directives occurred with: Patient Care Teams Thresher Broomcorn Relationship Specialty Start Date End Date Natali Langston DO [address] [facility] [address] [place] [address] PCP - General Family Medicine 06/18/14 documented as of this encounter
--- OUTSIDE RECORDS SUMMARY | 2023-07-28 23:02 | External Medical Summary ---
Author Name Unknown Address Unknown Organization K1F:LABORATORY [facility] - [address] [place] [address] Laboratory Report Ordering Provider Test Date Status BRONWYN BERNARD 06/27/2023 04:15:00 Final Observation Date Value Abnormality Reference (Units ) Status BUN 06/27/2023 04:15:00 36 Above high normal 6-20 (mg/dL) Final Creatinine 06/27/2023 04:15:00 1.9 Above high normal 0.5-1.0 (mg/dL) Final Glomerular filtration rate/1.73 sq M.predicted [Volume Rate/Area] in Serum, Plasma or Blood by Creatinine-based formula (CKD-EPI) 06/27/2023 04:15:00 29 Below low normal >=60 (mL/min) Final eGFR is calculated based on the CKD-EPI 2020 equation Sodium 06/27/2023 04:15:00 136 135-146 (m mol/L) Final Potassium 06/27/2023 04:15:00 4.1 3.5-5.1 (m mol/L) Final Cl 06/27/2023 04:15:00 97 Below low normal 98- 107 (mmol/L) Final CO2 06/27/2023 04:15:00 27 22-32 (mmo l/L) Final Anion gap 06/27/2023 04:15:00 12 7-15 (mmol /L) Final Glucose 06/27/2023 04:15:00 186 Above high normal 70 -120 (mg/dL) Final Albumin 06/27/2023 04:15:00 2.2 Below low normal 3.8 -5.0 (g/dL) Final AST (Aspartate aminotransferase) 06/27/2023 04:15:00 25 10-35 (U/L) Fin al Result may be falsely elevat ed due to hemolysis. Alk Phos 06/27/2023 04:15:00 187 Above high normal 35 -130 (U/L) Final Bilirubin, Total 06/27/2023 04:15:00 <0.2 <=1 .2 (mg/dL) Final Calcium 06/27/2023 04:15:00 8.2 Below low normal 8.4 -10.2 (mg/dL) Final Protein 06/27/2023 04:15:00 5.2 Below low normal 6.0 -8.3 (g/dL) Final ALT (Alanine aminotransferase) 06/27/2023 04:15:00 <5 Below low normal 10-35 (U/L) Final Performing Location LABORATORY [facility] - [facility] [place] [address]
--- OUTSIDE RECORDS SUMMARY | 2023-07-28 23:02 | External Medical Summary ---
Author Name Unknown Address Unknown Organization K1F:LABORATORY [facility] - [address] [place] [address] Laboratory Report Ordering Provider Test Date Status BRONYWN BERNARD 07/04/2023 04:43:00 Final Observation Date Value Abnormality Reference (Units ) Status SYNC LEUKOCYTES IN BLOOD BY AUTOMATED COUNT 07/04/2023 04:43:00 10.28 4.00-10.80 (K/uL) Final Segs 07/04/2023 04:43:00 65.8 40.0-75.0 (%) Final Lymphs % 07/04/2023 04:43:00 23.2 18.0-42.0 (%) Final Monos 07/04/2023 04:43:00 7.0 1.0-11.0 (%) Final Eosinophils 07/04/2023 04:43:00 2.8 0.0-6.0 (%) Final Basos 07/04/2023 04:43:00 0.5 0.0-2.0 (%) Final Immature Granulocyte, Percent 07/04/2023 04:43:00 0.7 0.0-2.0 (%) Final Absolute Segs 07/04/2023 04:43:00 6.77 1.80-7.70 (K/uL) Final Lymphs, absolute 07/04/2023 04:43:00 2.38 1.00-4.80 (K/ul) Final Monos, Abs 07/04/2023 04:43:00 0.72 0.00-1.10 (K/uL) Final Eos, Abs 07/04/2023 04:43:00 0.29 0.00-0.70 (K/uL) Final Basos, Abs 07/04/2023 04:43:00 0.05 0.00-0.20 (K/uL) Final Immature Granulocytes, Number 07/04/2023 04:43:00 0.07 0.00-0.20 (K/uL) Final Performing Location LABORATORY [facility] - [address] [place] [place] [address]
--- OUTSIDE RECORDS SUMMARY | 2023-07-28 23:02 | External Medical Summary ---
Author Name Unknown Address Unknown Organization K1F:LABORATORY [facility] - [address] [place] [address] Laboratory Report Ordering Provider Test Date Status BRONWYN BERNARD 07/04/2023 04:43:00 Final Observation Date Value Abnormality Reference (Units ) Status BUN 07/04/2023 04:43:00 48 Above high normal 6-20 (mg/dL) Final Creatinine 07/04/2023 04:43:00 2.0 Above high normal 0.5-1.0 (mg/dL) Final Glomerular filtration rate/1.73 sq M.predicted [Volume Rate/Area] in Serum, Plasma or Blood by Creatinine-based formula (CKD-EPI) 07/04/2023 04:43:00 28 Below low normal >=60 (mL/min) Final eGFR is calculated based on the CKD-EPI 2020 equation Sodium 07/04/2023 04:43:00 137 135-146 (m mol/L) Final Potassium 07/04/2023 04:43:00 3.8 3.5-5.1 (m mol/L) Final Cl 07/04/2023 04:43:00 101 98-107 (mm ol/L) Final CO2 07/04/2023 04:43:00 27 22-32 (mmo l/L) Final Anion gap 07/04/2023 04:43:00 9 7-15 (mmol /L) Final Glucose 07/04/2023 04:43:00 243 Above high normal 70 -120 (mg/dL) Final Albumin 07/04/2023 04:43:00 2.3 Below low normal 3.8 -5.0 (g/dL) Final AST (Aspartate aminotransferase) 07/04/2023 04:43:00 18 10-35 (U/L) Fin al Alk Phos 07/04/2023 04:43:00 140 Above high normal 35 -130 (U/L) Final Bilirubin, Total 07/04/2023 04:43:00 <0.2 <=1 .2 (mg/dL) Final Calcium 07/04/2023 04:43:00 7.9 Below low normal 8.4 -10.2 (mg/dL) Final Protein 07/04/2023 04:43:00 5.1 Below low normal 6.0 -8.3 (g/dL) Final ALT (Alanine aminotransferase) 07/04/2023 04:43:00 <5 Below low normal 10-35 (U/L) Final Performing Location LABORATORY [facility] - [facility] [address] [place] [place] [address]
--- OUTSIDE RECORDS SUMMARY | 2023-07-28 23:02 | External Medical Summary | Summary of Care ---
Author Name Unknown Organization [facility] Address [address] [place] [address] Phone [phone] Care Team Providers Care Town Planner Name Role Phone Natali Langston Primary Care Provider Encounter Details Date Type Department Care Team (Latest Contact Info) Description 03/19/2023 6:30 AM EST - 03/19/2023 11:59 PM EST Hospital Encounter Radiology Film File [address] [place] [address] Discharge Disposition: Home - Self Care Allergies Active Allergy Reactions Criticality Noted Date Comments Amoxicillin 06/26/2014 Clarithromycin Other (Please comment) High 01/16/2023 Heart racing Dextromethorphan Hives High 01/16/2023 Doxylamine Hives High 01/16/2023 Food (See Comments) Hives 06/20/2023 Sals[employer]'s brand 7 Grain Bread Latex 06/18/2014 Dgvykisdx-Fwcpnyllpu-Do-Ap ap Edema face/lips/tongue,It katie High 11/11/2010 Sulfa [...] 10:20 AM EDT Office Visit Infectious Disease [facility] Riccardo Artegaa [facility] [place] [address] Ricky [facility]es [facility] [address] [facility] [address] Health Maintenance Due Date Last [...] study not interpreted or resulted by a [facility] or [employer] contracted radiologist. Ayana Summers MD RADIOLOGY (RAD GEN ERAL) documented in this encounter Advance Directives Documents on File Type Date Recorded Patient Morphologist Expl anation POLST 06/17/2023 [place] OR [facility] FOR LIFE-SUSTAINING TREATMENT Latest Code Status on [...] Advance Directives occurred with: Patient Care Teams Town Planner Relationship Specialty Start Date End Date Natali Langston DO 6 [facility] [address] [place] [address] PCP - General Family Medicine 06/18/14 documented as of this encounter
--- OUTSIDE RECORDS SUMMARY | 2023-07-28 23:02 | External Medical Summary | Summary of Care ---
Author Name Unknown Organization [facility] Address [address] [place] [address] Phone [phone] Care Team Providers Care Brine Room Laborer Name Role Phone Natali Langston Primary Care Provider Encounter Details Date Type Department Care Team (Late st Contact Info) Description 05/04/2023 Orders Only Unspecified Department Ayana Summers MD [address] [place], [place] [address] [address] Allergies Active Allergy Reactions Criticality Noted Date Comments Amoxicillin 06/26/2014 Clarithromycin Other (Please comment) High 01/16/2023 Heart racing Dextromethorphan Hives High 01/16/2023 Doxylamine Hives High 01/16/2023 Food (See Comments) Hives 06/20/2023 Interleukin [employer]'s brand 7 Grain Bread Latex 06/18/2014 Avrijbhdg-Qzkjiejlos-Ow-Ap ap Edema face/lips/tongue,It katie High 11/11/2010 Sulfa [...] 10:20 AM EDT Office Visit Infectious Disease [facility] Jenni [place] [address] [place], [place] [address] [address] Ricky Carnes MD [address] [facility] [place] [address] Health Maintenance Due Date Last Done [...] interpreted or resulted by a [facility] or [employer] contracted radiologist. Ayana Summers MD RAD [...] Documents on File Type Date Recorded Patient Senior Data Developer Expl anation POLST 06/17/2023 [place] [facility] FOR LIFE-SUSTAINING TREATMENT Latest Code Status [...] Advance Directives occurred with: Patient Care Teams Brine Room Laborer Relationship Specialty Start Date End Date Natali Langston DO [address] [place] [address] PCP - General Family Medicine 06/18/14 documented as of this encounter
--- OUTSIDE RECORDS SUMMARY | 2023-07-28 23:02 | External Medical Summary | Summary of Care ---
Author Name Unknown Organization [facility] Address [address] [place] [address] Phone [phone] Care Team Providers Care Steamer Gum Candy Name Role Phone Natali Langston Primary Care Provider Encounter Details Date Type Department Care Team (Late st Contact Info) Description 04/10/2023 Orders Only Unspecified Department Ayana Summers MD [address] [place], [place] [address] [address] Allergies Active Allergy Reactions Criticality Noted Date Comments Amoxicillin 06/26/2014 Clarithromycin Other (Please comment) High 01/16/2023 Heart racing Dextromethorphan Hives High 01/16/2023 Doxylamine Hives High 01/16/2023 Food (See Comments) Hives 06/20/2023 [employer]'s brand 7 Grain Bread Latex 06/18/2014 Fqozankwk-Eqqhjdpsvn-Pn-Ap ap Edema face/lips/tongue,It katie High 11/11/2010 Sulfa [...] 10:20 AM EDT Office Visit Infectious Disease [facility] Jenni [place] [address] [place], [place] [address] [address] Ricyk Carnes MD [address] [place] [facility] [place] [address] Health Maintenance Due Date Last Done [...] interpreted or resulted by a [facility] or [facility] radiologist. Ayana Summers MD RAD CT [...] Documents on File Type Date Recorded Patient Process Line Operator Expl anation POLST 06/17/2023 [place] [facility] FOR LIFE-SUSTAINING TREATMENT Latest Code Status on [...] Advance Directives occurred with: Patient Care Teams Steamer Gum Candy Relationship Specialty Start Date End Date Natali Langston DO 6 Luke Lang [address] [place] [address], [place] [address] PCP - General Family Medicine 06/18/14 documented as of this encounter
--- OUTSIDE RECORDS SUMMARY | 2023-07-28 23:02 | External Medical Summary | Summary of Care ---
Author Name Unknown Organization [facility] Address [address] [place] [address] Phone [phone] Care Team Providers Care Secretary Receptionist Name Role Phone Natali Langston Primary Care Provider Encounter Details Date Type Department Care Team (Late st Contact Info) Description 01/25/2023 Orders Only Unspecified Department Ayana Summers MD [address] [place], [place] [address] [address] Allergies Active Allergy Reactions Criticality Noted Date Comments Amoxicillin 06/26/2014 Clarithromycin Other (Please comment) High 01/16/2023 Heart racing Dextromethorphan Hives High 01/16/2023 Doxylamine Hives High 01/16/2023 Food (See Comments) Hives 06/20/2023 [employer]'s brand 7 Grain Bread Latex 06/18/2014 Vbmlgywsi-Hjpnibeamn-Wx-Ap ap Edema face/lips/tongue,It katie High 11/11/2010 Sulfa [...] EDT Office Visit Infectious Disease [facility] Jenni [place] [address] [place], [place] [address] [address] Ricky Carnes MD [address] [place] [facility] [place] [address] Health Maintenance Due Date Last Done [...] interpreted or resulted by a [facility] or [facility] contracted radiologist. 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
--- OUTSIDE RECORDS SUMMARY | 2023-07-28 23:02 | External Medical Summary ---
Author Name Unknown Address Unknown Organization K1F:LABORATORY [facility] - [address] [place] [address] Laboratory Report Ordering Provider Test Date Status BRONWYN BERNARD 07/04/2023 04:43:00 Final Observation Date Value Abnormality Reference (Units ) Status WBC, Total 07/04/2023 04:43:00 10.28 4.00-10.80 (K/uL) Final RBC 07/04/2023 04:43:00 2.85 3.85-5.15 (M/uL) Final Hemoglobin 07/04/2023 04:43:00 7.9 Below low normal 12.0-15.3 (g/dL) Final HCT 07/04/2023 04:43:00 26.0 Below low normal 36.0-45.2 (%) Final MCV 07/04/2023 04:43:00 91.2 81.5-97.5 (fL) Final MCH 07/04/2023 04:43:00 27.7 27.0-34.0 (pg) Final MCHC 07/04/2023 04:43:00 30.4 32.0-36.0 (g/dL) Final RDW 07/04/2023 04:43:00 17.4 11.5-15.5 (%) Final Platelets 07/04/2023 04:43:00 335 140-400 (K/uL) Final MPV 07/04/2023 04:43:00 10.7 6.6-11.1 (fL) Final Nucleated erythrocytes/100 leukocytes [Ratio] in Blood by Automated count 07/04/2023 04:43:00 0 <=0 (/100 WBCs) Final Performing Location LABORATORY [facility] - [address] [place] [address]
--- OUTSIDE RECORDS SUMMARY | 2023-07-28 23:02 | External Medical Summary ---
Author Name Unknown Address Unknown Organization K1F:LABORATORY [facility] - [address] [place] [address] Laboratory Report Ordering Provider Test Date Status BRONWYN BERNARD 06/27/2023 04:15:00 Final Observation Date Value Abnormality Reference (Units ) Status WBC, Total 06/27/2023 04:15:00 11.44 Above high normal 4.00-10.80 (K/uL) Final RBC 06/27/2023 04:15:00 2.88 3.85-5.15 (M/uL) Final Hemoglobin 06/27/2023 04:15:00 8.2 Below low normal 12.0-15.3 (g/dL) Final HCT 06/27/2023 04:15:00 26.6 Below low normal 36.0-45.2 (%) Final MCV 06/27/2023 04:15:00 92.4 81.5-97.5 (fL) Final MCH 06/27/2023 04:15:00 28.5 27.0-34.0 (pg) Final MCHC 06/27/2023 04:15:00 30.8 32.0-36.0 (g/dL) Final RDW 06/27/2023 04:15:00 18.1 11.5-15.5 (%) Final Platelets 06/27/2023 04:15:00 315 140-400 (K/uL) Final MPV 06/27/2023 04:15:00 11.5 6.6-11.1 (fL) Final Nucleated erythrocytes/100 leukocytes [Ratio] in Blood by Automated count 06/27/2023 04:15:00 0 <=0 (/100 WBCs) Final Performing Location LAB[facility]ATORY [facility] - [address] [place] [address]
--- OUTSIDE RECORDS SUMMARY | 2023-07-28 23:02 | External Medical Summary ---
Author Name Unknown Address Unknown Organization K1F:LABORATORY [facility] - [address] [place] [address] Laboratory Report Ordering Provider Test Date Status BRONWYN BERNARD 06/27/2023 04:15:00 Final Observation Date Value Abnormality Reference (Units ) Status T4, Free 06/27/2023 04:15:00 1.3 0.9-1.7 (n g/dL) Final Performing Location LAB[facility]ATORY [facility] - [address] [place] [address]
--- OUTSIDE RECORDS SUMMARY | 2023-07-28 23:03 | External Medical Summary ---
Author Name Unknown Address Unknown Organization : Laboratory Report Ordering Provider Test Date Status VITO MENDOZA 06/25/2023 08:02:15 Final Observation Date Value Abnormality Reference (Units ) Status Glucose Point of Care 06/25/2023 08:02:15 143 Above high normal 70-120 (mg/dL) Final Performing Location
--- OUTSIDE RECORDS SUMMARY | 2023-07-28 23:03 | External Medical Summary ---
Author Name Unknown Address Unknown Organization K1F:[facility]ATORY [facility] - [address] [place] [address] Laboratory Report Ordering Provider Test Date Status MAIA YADAV 06/24/2023 04:31:00 Final Observation Date Value Abnormality Reference (Units ) Status Phosphate 06/24/2023 04:31:00 3.2 2.5-4.8 (m g/dL) Final Performing Location LAB[facility]ATORY [facility] - [address] [place] [address]
--- OUTSIDE RECORDS SUMMARY | 2023-07-28 23:03 | External Medical Summary ---
Author Name Unknown Address Unknown Organization : Laboratory Report Ordering Provider Test Date Status AILEEN KIDD 06/24/2023 11:27:28 Final Observation Date Value Abnormality Reference (Units ) Status Glucose Point of Care 06/24/2023 11:27:28 120 70-120 (mg/dL) Final Performing Location
--- OUTSIDE RECORDS SUMMARY | 2023-07-28 23:03 | External Medical Summary ---
Author Name Unknown Address Unknown Organization : Laboratory Report Ordering Provider Test Date Status VITO MENDOZA 06/25/2023 11:33:09 Final Observation Date Value Abnormality Reference (Units ) Status Glucose Point of Care 06/25/2023 11:33:09 180 Above high normal 70-120 (mg/dL) Final Performing Location
--- OUTSIDE RECORDS SUMMARY | 2023-07-28 23:03 | External Medical Summary ---
Author Name Unknown Address Unknown Organization K1F:LAB[facility]ATORY [facility] - [address] [place] [address] Laboratory Report Ordering Provider Test Date Status MAIA YADAV 06/24/2023 04:31:00 Final Observation Date Value Abnormality Reference (Units ) Status BUN 06/24/2023 04:31:00 32 Above high normal 6-20 (mg/dL) Final Creatinine 06/24/2023 04:31:00 1.9 Above high normal 0.5-1.0 (mg/dL) Final Glomerular filtration rate/1.73 sq M.predicted [Volume Rate/Area] in Serum, Plasma or Blood by Creatinine-based formula (CKD-EPI) 06/24/2023 04:31:00 29 Below low normal >=60 (mL/min) Final eGFR is calculated based on the CKD-EPI 2020 equation Sodium 06/24/2023 04:31:00 133 Below low normal 135 -146 (mmol/L) Final Potassium 06/24/2023 04:31:00 3.3 Below low normal 3.5 -5.1 (mmol/L) Final Cl 06/24/2023 04:31:00 94 Below low normal 98- 107 (mmol/L) Final CO2 06/24/2023 04:31:00 24 22-32 (mmo l/L) Final Anion gap 06/24/2023 04:31:00 15 7-15 (mmol /L) Final Glucose 06/24/2023 04:31:00 101 70-120 (mg /dL) Final Albumin 06/24/2023 04:31:00 2.5 Below low normal 3.8 -5.0 (g/dL) Final AST (Aspartate aminotransferase) 06/24/2023 04:31:00 28 10-35 (U/L) Fin al Alk Phos 06/24/2023 04:31:00 238 Above high normal 35 -130 (U/L) Final Bilirubin, Total 06/24/2023 04:31:00 0.2 <=1 .2 (mg/dL) Final Calcium 06/24/2023 04:31:00 8.8 8.4-10.2 ( mg/dL) Final Protein 06/24/2023 04:31:00 6.5 6.0-8.3 (g /dL) Final ALT (Alanine aminotransferase) 06/24/2023 04:31:00 5 Below low normal 10-35 (U/L) Final Performing Location LAB[facility]ORY [facility] - [facility] [address] [place] [address]
--- OUTSIDE RECORDS SUMMARY | 2023-07-28 23:03 | External Medical Summary | Summary of Care ---
Author Name Unknown Organization [facility] Address [address] [place] [address] Phone [phone] Care Team Providers Care Content Development Specialist Name Role Phone Natali Langston Primary Care Provider Reason for Visit * Reason Comments Chest Pain * Auth/Cert Specialty Diagnoses / Procedures Referred By Contac t Referred To Contact [facility] [address] [place] [address] Phone: [phone] Emergency Medicine [facility] [address] [place] [address] Referral ID Status Reason Start Date Expiration Date Visits Re quested Visits Authorized [id number] Encounter Details Date Type Department Care Team (Latest Contact Info) Description 06/17/2023 5:45 PM EDT - 06/25/2023 1:08 PM EDT Hospital Encounter 3B [facility] 3rd Floor [address] [facility] [place] [id number] Alicja Mandel MD [address] [place] [address] Power Marshall MD [address] [facility] [place] [phone] Dante Contreras DO [address] [place] [place] [address] Jose Martin Wolff MD [address] [place] [address] [phone] Indra Kang MD [address] [place] [address] [phone] Ayana Summers MD [address] [place] [address] [phone] Various: EKG,CDIQDC Discharge Disposition: IP Rehab Allergies Active Allergy Reactions Criticality Noted Date Comments Amoxicillin 06/26/2014 Clarithromycin Other (Please comment) High 01/16/2023 Heart racing Dextromethorphan Hives High 01/16/2023 Doxylamine Hives High 01/16/2023 Food (See Comments) Hives 06/20/2023 [employer] Latex 06/18/2014 Mlxktojvh-Yruezewlco-Bx-Ap ap Edema face/lips/tongue,It katie High 11/11/2010 Sulfa Antibiotics Other (Please comment),Rash 08/03/2000 malaise documented as of this encounter (statuses as of 06/26/2023) Medications Medication Sig Dispensed Refills Start Date End Date Status Omeprazole 20 MG Oral Capsule Delayed Release (PriLOSEC) Take 1 Capsule by mouth daily before breakfast. 30 Capsule 3 4 Active Amitriptyline HCl 100 MG Oral Tablet (Elavil) Take 1 Tablet by mouth every night at bedtime. 30 Tablet 3 4 Active ceFAZolin IV IV (AMBULATORY) Administer 2 g intravenously in the morning and 2 g before bedtime. 160 g 0 4 024 Active hydrOXYzine HCl 50 MG Oral Tablet Take 1 Tablet by mouth every 8 hours as needed for Anxiety. 30 Tablet 0 4 Active Insulin Aspart 100 UNIT/ML Subcutaneous Solution (NovoLOG) Glucose 80-150 (units): 0 Glucose 151-200 (units): 2 Glucose 201-250 (units): 4 Glucose 251-300 (units): 6 Glucose greater than 300 (units): 8 1 Each 12 4 Active LiquaCel Oral Liquid Take 30 mL by mouth in the morning and 30 mL before bedtime. 1800 mL 11 4 025 Active Miconazole Nitrate 2 % External Powder (Remedy) Apply topically to affected area 2 times a day. Apply to abdominal folds 85 g 3 4 Active Polyethylene Glycol 3350 17 GM Oral Packet (Miralax) Take 1 Packet by mouth daily as needed for Constipation. 14 Each 0 4 Active Sennosides-Docus ate Sodium 8.6-50 MG Oral Tablet (Senokot-S) Take 1 Tablet by mouth 2 times a day as needed for Constipation. 30 Tablet 3 4 Active Bisacodyl 5 MG Oral Tablet Delayed Release (Dulcolax) Take 1 Tablet by mouth daily as needed for Constipation. 30 Tablet 0 4 Active Insulin Glargine 100 UNIT/ML Subcutaneous Solution (Lantus) Inject 10 Units under the skin at bedtime. 1 Each 12 4 Active Albuterol Sulfate HFA 108 (90 Base) MCG/ACT Inhalation Aerosol Solution Inhale 2 Puffs by mouth every 6 hours as needed for Dyspnea. 18 g 3 4 Active Levothyroxine Sodium 175 MCG Oral Tablet (Levoxyl) Take 1 Tablet by mouth in the morning. (at least 30 min prior to breakfast or other meds). 30 Tablet 3 4 Active Simvastatin 40 MG Oral Tablet (Zocor) Take 1 Tablet by mouth in the morning. 30 Tablet 3 4 Active amLODIPine Besylate 10 MG Oral Tablet (Norvasc) Take 1 Tablet by mouth in the morning. 0 Active Torsemide 20 MG Oral Tablet (Demadex) Take 4 Tablets by mouth in the morning and 4 Tablets in the evening. 240 Tablet 3 4 Active Lisinopril 40 MG Oral Tablet Take 1 Tablet by mouth in the morning. 30 Tablet 3 4 Active Potassium Chloride ER 10 MEQ Oral Tablet Extended Release Take 2 Tablets by mouth in the morning. 60 Tablet 3 4 Active Lisinopril 40 MG Oral Tablet Take 1 Tablet by mouth in the morning. 30 Tablet 3 4 024 Discontinued Bisacodyl 10 MG Rectal Suppository (Dulcolax) Administer 1 Suppository into the rectum daily as needed for Constipation. 12 Suppository 0 4 024 Discontinued Torsemide 60 MG Oral Tablet Take 60 mg by mouth in the morning and 60 mg in the evening. 60 Tablet 3 4 024 Discontinued Doxycycline Hyclate 100 MG Oral Tablet Take 1 Tablet by mouth in the morning and 1 Tablet before bedtime. Do all this for 1 day. 2 Tablet 0 4 024 Discontinued documented as of this encounter (statuses as of 06/26/2023) Active Problems Problem Noted Date Diagnosed Date [...] as of this encounter (statuses as of 06/26/2023) Resolved Problems Problem Noted Date Diagnosed Date Resolved Date Cellulitis of index finger 06/19/2023 0 06/25/2023 Chest pain 06/17/2023 06/18/2023 Pneumonia of right lower lob e due to infectious organism 06/17/2023 06/18/2023 BPPV (benign paroxysmal positional vertigo) 06/17/2023 06/18/2023 Hypokalemia 06/17/2023 06/19/2023 Hypomagnesemia 06/17/2023 06/25/2023 Acute on chronic diastolic c ongestive heart failure 06/03/2023 06/25/2023 documented as of this encounter (statuses as of 06/26/2023) Immunizations Name Administration Dates Next Due PPD 10/08/2018 documented as of this encounter Social History Tobacco Use Types Packs/Day Years Used Date Smoking Tobacco: Never Smokeless Tobacco: Never Tobacco Cessation:Counseling Given: Not Answered Alcohol Use Standard Drinks/Week Comments No 0 (1 standard drink = 0.6 oz pur e alcohol) Sex and Gender Information Value Date Recorded Sex Assigned at Not on file Gender Identity Not on file Sexual Orientation Not on file Job Start Date Occupation Industry Not on file Not on file Not on file documented as of this encounter Last Filed Vital Signs Vital Sign Reading Time Taken Comments Blood Pressure 162/70 06/25/2023 7:31 AM EDT Pulse 73 06/25/2023 7:31 AM EDT Temperature 36.4 C (97.5 F) 06/25/2023 7:31 AM ED T Respiratory Rate 22 06/25/2023 7:31 AM EDT Oxygen Saturation 100% 06/25/2023 7:31 AM EDT Inhaled Oxygen Concentration - - Weight 134 kg (295 lb 6.4 oz) 06/25/2023 6:47 AM EDT Height 157.5 cm (5' 2") 06/17/2023 9:28 PM EDT Body Mass Index 54.03 06/17/2023 9:28 PM EDT documented in this encounter Functional Status Functional Status Response Date of Assess ment Are you deaf or do you have serious difficulty hearing? No 06/17/2023 Are you blind or do you have serious difficulty seeing, even when wearing glasses? 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 she is not allowed to drive 06/17/2023 Do you have serious difficul ty walking or climbing stairs? (5 years old or older) Yes 06/17/2023 Do you have difficulty dress ing or bathing? (5 years old or older) No 06/17/2023 Because of a physical, menta l, or emotional condition, do you have difficulty doing errands alone such as visiting a doctor s office or shopping? (15 years old or older) No 06/17/2023 Cognitive Status Response Date of Assessm ent Because of a physical, menta l, or emotional condition, do you have serious difficulty concentrating, remembering, or making decisions? (5 years old or older) No 06/17/2023 documented as of this encounter Discharge Summaries * Ayana Summers MD - 06/25/2023 10:46 AM EDT Images from the original note were not included. [address] [address] Admission Date: 06/17/2023 Discharge Date: 06/25/2023 RECOMMENDED TO DO FOR NEXT PROVIDER(S): Repeat BMP and CBC by end of the week and weekly while on IV abx REASON(S) FOR MEDICATION CHANGE(S): - dc diuretic regimen torsemide 80 BID, KCL 20meq qd DISPOSITION ON DISCHARGE: rehab: [facility] Active Hospital Problems Diagnosis *Principal Diagnosis - Anasarca Osteomyelitis of right foot (HCC) Iron deficiency anemia Chronic kidney disease, stage IV (severe) (HCC) Moderate pulmonary hypertension (HCC) Ambulatory dysfunction Diabetic ulcer of right heel (HCC) Type 2 diabetes mellitus, with long-term current use of insulin (HCC) Hypothyroid Hypertension Resolved Hospital Problems Diagnosis Date Resolved Cellulitis of index finger 06/25/2023 Chest pain 06/18/2023 Hypokalemia 06/19/2023 Hypomagnesemia 06/25/2023 Acute on chronic diastolic congestive heart failure (HCC) 06/25/2023 ADMISSION HISTORY & PHYSICAL EXAM (focused): PRESENTING PROBLEM: chest pain HPI: This is a 63 yo woman with below pmh that includes morbid obesity, stage 3- 4 ckd, HTN, dm2, fibromyalgia, hypothyroid, anemia of chronic disease, and chf with preserved EF. She was admitted here2 weeks ago as she reports that her chf gradually became worse at [facility]. Four days ago, she was sent to [facility] after successful diuresis and treatment of diabetic foot ulcer. After going to [facility], she believes that her weight started to go back up and today she returned here with chest pain, chills, worsening dyspnea. She denies fever, productive cough, or diarrhea. While at [facility], she couldn't participate in rehab due to her foot ulcer and difficulty ambulating. ED course: chest pain improved with sl ntg and even better with morphine. ROS: see hpi for pertinent ros; 10 systems reviewed and otherwise negative Physical Exam Most Recent Vital Signs: BP: 166 mmHg/76 mmHg (06/17/232099) Pulse: 90 (06/17/232099) Temp: 36.39 C (06/17/231749) Temp Summary: Temp Min: 36.4 C (97.5 F) Max: 36.4 C (97.5 F) SpO2: 100 % (06/17/232099) O2 flow rate: 4 L/MIN (06/17/231749) Supplemental O2 Delivery: Nasal Cannula (06/17/231749) Constitutional: chronically ill appearing middle aged woman resting in bed, not in acute distress. HEENT: normal: normocephalic, atraumatic Eyes: sclera and conjunctiva normal Neck: supple CV: normal rate Chest: normal respiratory effort, lungs clear to auscultation anteriorly, no wheezing Abdomen: soft, bowel sounds normal, no tenderness Extremities: 3+ edema Skin: warm, dry, feet covered in bandages. Neuro: alert, oriented to person, place, generalized weakness but otherwise non-focal HOSPITAL COURSE (focused): Patient admitted to [facility] on 06/16 with chest pain and volume overload. - Cardiology consulted -ACS ruled out. EKG no acute changes. Trop mildly elevated but flat. - IV diuresis with 80mg BID and TID - nuclear stress test performed, but 2nd part canceled due to patient claustrophobia - per cards "Stress imaging shows predominantly normal perfusion inferior portion of the heart had reduced tracer counts possible attenuation however can not confirm due to lack of resting images " - continue with IV diuresis until day of discharge - switched to torsemide 80mg BID - KCL 20meq daily - repeat BMP by end of the weak - adjust potassium supplement if needed Continue IV Ancef 2 g bid until 07/23/23 for MSSA infection, left heel OM Operations & Procedures: none Complications: none significant Significant Lab and Imaging Results: Recent Results (from the past 48 hour(s)) GLUCOSE METER, POINT OF CARE Collection Time: 06/23/23 11:37 AM Result Value Ref Range Glucose Meter 158 (H) 70 - 120 mg/dL GLUCOSE METER, POINT OF CARE Collection Time: 06/23/23 4:45 PM Result Value Ref Range Glucose Meter 117 70 - 120 mg/dL GLUCOSE METER, POINT OF CARE Collection Time: 06/23/23 9:54 PM Result Value Ref Range Glucose Meter 96 70 - 120 mg/dL COMPREHENSIVE METABOLIC PANEL Collection Time: 06/24/23 4:31 AM Result Value Ref Range BUN 32 (H) 6 - 20 mg/dL Creatinine 1.9 (H) 0.5 - 1.0 mg/dL Estimated Glomerular Filtration Rate 29 (L) >=60 mL/min Sodium 133 (L) 135 - 146 mmol/L Potassium 3.3 (L) 3.5 - 5.1 mmol/L Chloride 94 (L) 98 - 107 mmol/L CO2 24 22 - 32 mmol/L Anion Gap 15 7 - 15 mmol/L Glucose 101 70 - 120 mg/dL Albumin 2.5 (L) 3.8 - 5.0 g/dL AST 28 10 - 35 U/L Alkaline Phosphatase 238 (H) 35 - 130 U/L Bilirubin, Total 0.2 <=1.2 mg/dL Calcium 8.8 8.4 - 10.2 mg/dL Protein 6.5 6.0 - 8.3 g/dL ALT 5 (L) 10 - 35 U/L CBC Collection Time: 06/24/23 4:31 AM Result Value Ref Range WBC 9.05 4.00 - 10.80 K/uL RBC 3.09 3.85 - 5.15 M/uL HGB 8.8 (L) 12.0 - 15.3 g/dL HCT 27.2 (L) 36.0 - 45.2 % MCV 88.0 81.5 - 97.5 fL MCH 28.5 27.0 - 34.0 pg MCHC 32.4 32.0 - 36.0 g/dL RDW 18.1 11.5 - 15.5 % PLT 312 140 - 400 K/uL MPV 11.5 6.6 - 11.1 fL nRBCs 0 <=0 /100 WBCs MAGNESIUM Collection Time: 06/24/23 4:31 AM Result Value Ref Range Magnesium 1.2 (L) 1.5 - 2.6 mg/dL PHOSPHORUS Collection Time: 06/24/23 4:31 AM Result Value Ref Range Phosphorus 3.2 2.5 - 4.8 mg/dL GLUCOSE METER, POINT OF CARE Collection Time: 06/24/23 7:50 AM Result Value Ref Range Glucose Meter 121 (H) 70 - 120 mg/dL GLUCOSE METER, POINT OF CARE Collection Time: 06/24/23 11:27 AM Result Value Ref Range Glucose Meter 120 70 - 120 mg/dL GLUCOSE METER, POINT OF CARE Collection Time: 06/24/23 4:41 PM Result Value Ref Range Glucose Meter 124 (H) 70 - 120 mg/dL GLUCOSE METER, POINT OF CARE Collection Time: 06/24/23 9:12 PM Result Value Ref Range Glucose Meter 175 (H) 70 - 120 mg/dL COMPREHENSIVE METABOLIC PANEL Collection Time: 06/25/23 6:11 AM Result Value Ref Range BUN 35 (H) 6 - 20 mg/dL Creatinine 1.8 (H) 0.5 - 1.0 mg/dL Estimated Glomerular Filtration Rate 31 (L) >=60 mL/min Sodium 133 (L) 135 - 146 mmol/L Potassium 3.6 3.5 - 5.1 mmol/L Chloride 95 (L) 98 - 107 mmol/L CO2 25 22 - 32 mmol/L Anion Gap 13 7 - 15 mmol/L Glucose 134 (H) 70 - 120 mg/dL Albumin 2.1 (L) 3.8 - 5.0 g/dL AST 26 10 - 35 U/L Alkaline Phosphatase 207 (H) 35 - 130 U/L Bilirubin, Total <0.2 <=1.2 mg/dL Calcium 8.7 8.4 - 10.2 mg/dL Protein 6.1 6.0 - 8.3 g/dL ALT <5 (L) 10 - 35 U/L CBC Collection Time: 06/25/23 6:11 AM Result Value Ref Range WBC 9.34 4.00 - 10.80 K/uL RBC 2.94 3.85 - 5.15 M/uL HGB 8.3 (L) 12.0 - 15.3 g/dL HCT 26.4 (L) 36.0 - 45.2 % MCV 89.8 81.5 - 97.5 fL MCH 28.2 27.0 - 34.0 pg MCHC 31.4 32.0 - 36.0 g/dL RDW 17.9 11.5 - 15.5 % PLT 302 140 - 400 K/uL MPV 11.3 6.6 - 11.1 fL nRBCs 0 <=0 /100 WBCs MAGNESIUM Collection Time: 06/25/23 6:11 AM Result Value Ref Range Magnesium 1.7 1.5 - 2.6 mg/dL PHOSPHORUS Collection Time: 06/25/23 6:11 AM Result Value Ref Range Phosphorus 3.3 2.5 - 4.8 mg/dL GLUCOSE METER, POINT OF CARE Collection Time: 06/25/23 8:02 AM Result Value Ref Range Glucose Meter 143 (H) 70 - 120 mg/dL } CT ABD/PELVIS WO IV/ORAL CONTRAST Final Result PROCEDURE INFORMATION: Exam: CT Abdomen And Pelvis Without Contrast Exam date and time: 06/17/2023 7:15 PM Age: 63 years old Clinical indication: Abdominal pain; Additional info: Left upper abdominal pain TECHNIQUE: Imaging protocol: Computed tomography of the abdomen and pelvis without contrast. Radiation optimization: All CT scans at this facility use at least one of these dose optimization techniques: automated exposure control; mA and/or kV adjustment per patient size (includes targeted exams where dose is matched to clinical indication); or iterative reconstruction. COMPARISON: 1. CT ABD/PELVIS WO IV/ORAL CONTRAST 06/02/2023 8:19 PM 2. DX XR HIP UNILAT 2-3 VIEWS INCLUDING AP PELVIS 06/01/2023 11:10 AM 3. DX XR CHEST 1 VIEW 06/17/2023 6:28 PM FINDINGS: Lungs: There is a parenchymal consolidation of the right lower lobe that is concerning for infection and is increased from prior. Scattered areas of bronchial wall thickening which are likely chronic inflammatory. A few areas of subpleural reticulation are noted, nonspecific. Pleural spaces: There is a moderate right pleural effusion. There is a small left pleural effusion. Heart: Trace pericardial fluid which is likely physiologic. Liver: Normal. Gallbladder and bile ducts: No acute process. Pancreas: Normal. Spleen: Normal. Adrenal glands: The adrenal glands appear normal. Kidneys and ureters: There are no soft tissue renal masses or hydronephrosis. Stomach and bowel: There are scattered colonic diverticula without evidence for active diverticulitis. Appendix: No evidence of appendicitis. Intraperitoneal space: Unremarkable. Vasculature: There is atherosclerotic disease of the visualized aorta and its major branch vessels. Lymph nodes: There are mildly prominent but nonenlarged and nonspecific retroperitoneal nodes. Mildly prominent nodes in the central mesentery, nonspecific. Urinary bladder: Unremarkable as visualized. Reproductive: No acute process. Bones/joints: There is diffuse degenerative disease of the visualized osseous structures. Soft tissues: There is diffuse anasarca. There are multiple new subcutaneous soft tissue densities throughout the abdomen which may reflect injection sites. IMPRESSION IMPRESSION: 1. Moderate right and small left pleural effusions with increasing consolidation at the right lung base, correlate with any concern for infection. 2. No acute inflammatory or obstructive process is identified. Incidental findings are described within the findings section. THIS DOCUMENT HAS BEEN ELECTRONICALLY SIGNED BY CHANTE OROSCO MD XR CHEST 1 VIEW Final Result PROCEDURE INFORMATION: Exam: XR Chest Exam date and time: 06/17/2023 6:28 PM Age: 63 years old Clinical indication: Pain; Angina pectoris; Additional info: Chest pain TECHNIQUE: Imaging protocol: Radiologic exam of the chest. Views: 1 view. COMPARISON: DX XR CHEST 1 VIEW 06/06/2023 12:20 PM FINDINGS: Tubes, catheters and devices: There is a right upper extremity PICC, catheter tip projects over the superior vena cava. Lungs: Hazy opacities appear somewhat decreased from the prior study. Pleural spaces: No large effusion or pneumothorax. Heart/Mediastinum: Stable cardiac and mediastinal contours. Bones/joints: No evidence of acute osseous abnormalities within the visualized portions of the thoracic spine and ribs. Osseous structures appear appropriate for patient age. IMPRESSION IMPRESSION: Hazy opacities appear somewhat decreased from the prior study. THIS DOCUMENT HAS BEEN ELECTRONICALLY SIGNED BY CAHNTE OROSCO MD Recent Cultures (2 Weeks) 06/18/2023 06/17/2023 06/17/2023 06/07/2023 06/06/2023 06/06/2023 06/06/2023 06/02/2023 9:38 AM 8:48 PM 8:43 PM 4:03 PM 1:38 PM 12:39 PM 12:18 AM 10:52 PM STAIN DESCRIPTION -- -- -- -- No polymorphonuclear leukocytes seen Few Polymorphonuclear leukocytes-- -- No organisms seen Occasional Gram positive cocci Occasional Gram positive bacilli CULTURE GROWTH -- -- -- -- From broth only Staphylococcus aureus Moderate Staphylococcus aureus -- -- BLOOD CULTURE GROWTH -- No growth No growth No growth -- -- -- -- No growth QUANT URINE CULTURE GROWTH No significant growth -- -- -- -- -- Multiple genevieve suggests contamination or colonization Multiple genevieve suggests contamination or colonization FINAL IMPRESSION AND RECOMMENDATIONS: Syndrome Osteomyelitis Microbiology Staphylococcus aureus (MSSA) Antibiotic Cefazolin 2 g Q12 hours (adjust for renal function) End Date July 23, 2023 Vascular access: Remove intravascular access after completion of antibiotics Recommended followup imaging studies: Not applicable LABORATORY MONITORING: Lab Test Frequency End Date BMP CBC with diff Q week July 23, 2023 PROVIDERS: Following ID Physician ID clinic follow-up date Ricky Carnes Within 8 weeks Results Pending at Discharge: Lab Results Pending at Discharge: MAGNESIUM Routine PHOSPHORUS Routine COMPREHENSIVE METABOLIC PANEL Routine CBC Routine MEDICATION UPDATES AT DISCHARGE START taking these medications INSTRUCTIONS potassium chloride ER 10 MEQ Tbcr Take 2 Tablets by mouth in the morning. CHANGE how you take these medications INSTRUCTIONS Bisacodyl 5 MG Tbec Commonly known as: Dulcolax What changed: Another medication with the same name was removed. Continue taking this medication, and follow the directions you see here. Take 1 Tablet by mouth daily as needed for Constipation. Torsemide 20 MG Tablet Commonly known as: Demadex What changed: medication strength how much to take Take 4 Tablets by mouth in the morning and 4 Tablets in the evening. CONTINUE taking these medications INSTRUCTIONS albuterol HFA 108 (90 BASE) MCG/ACT inhaler Notes to patient: Used to open the airways in lung diseases where spasm may cause breathing problems and prevent breathing problems that happen with exercise Inhale 2 Puffs by mouth every 6 hours as needed for Dyspnea. amitriptyline 100 MG Tablet Commonly known as: Elavil Notes to patient: Used to treat depression Take 1 Tablet by mouth every night at bedtime. amLODIPine 10 MG Tablet Commonly known as: Norvasc Notes to patient: Used to treat high blood pressure and some types of chest pain Take 1 Tablet by mouth in the morning. ceFAZolin IV (AMBULATORY) Commonly known as: Ancef Notes to patient: antibiotic Administer 2 g intravenously in the morning and 2 g before bedtime. hydrOXYzine HCl 50 MG Tablet Notes to patient: Used to treat anxiety, mood problems, and treat upset stomach and throwing up Take 1 Tablet by mouth every 8 hours as needed for Anxiety. insulin aspart 100 UNIT/ML injection Commonly known as: NovoLOG Notes to patient: Used to control blood sugar Glucose 80-150 (units): 0 Glucose 151-200 (units): 2 Glucose 201-250 (units): 4 Glucose 251-300 (units): 6 Glucose greater than 300 (units): 8 Insulin Glargine 100 UNIT/ML injection Commonly known as: Lantus Notes to patient: Used to control blood sugar Inject 10 Units under the skin at bedtime. levothyroxine 175 MCG Tablet Commonly known as: Levoxyl Notes to patient: Used to add thyroid hormone to the body or manage thyroid cancer Take 1 Tablet by mouth in the morning. (at least 30 min prior to breakfast or other meds). LiquaCel Liqd Notes to patient: A liquuid protein used for individuals needing nutrition but find large-volume supplements a challenge to take and accommodates bariatric and dialysis patients. Take 30 mL by mouth in the morning and 30 mL before bedtime. Lisinopril 40 MG Tablet Take 1 Tablet by mouth in the morning. Miconazole Nitrate 2 % Powd Commonly known as: Remedy Notes to patient: Used to treat certain kinds of fungal or yeast infections of the skin Apply topically to affected area 2 times a day. Apply to abdominal folds omeprazole 20 MG Cpdr Commonly known as: PriLOSEC Notes to patient: Used to treat or prevent GI (gastrointestinal) ulcers, gastroesophageal reflux (GERD, acid reflux), and heartburn Take 1 Capsule by mouth daily before breakfast. Polyethylene Glycol 3350 packet Commonly known as: Miralax Notes to patient: Used to ease constipation Take 1 Packet by mouth daily as needed for Constipation. senna-docusate 8.6-50 MG per tablet Commonly known as: Senokot-S Notes to patient: Used to ease constipation Take 1 Tablet by mouth 2 times a day as needed for Constipation. Simvastatin 40 MG Tablet Commonly known as: Zocor Notes to patient: Used to lower bad cholesterol, lower triglycerides, and raise good cholesterol (HDL) Take 1 Tablet by mouth in the morning. SCHEDULED FOLLOW-UP: Future Appointments Appt Date/Time Provider Department 06/26/2023 11:40 AM Dena Arshad MD Sleep Disorders, [facility] 07/02/2023 1:30 PM [facility]/31/2023 10:20 AM Ricky Carnes MD Infectious Disease [address], [place] Other Information Indwelling Devices: LINES ALL Duration Power PICC Single Lumen Right;Upper Arm 12 days Vital Signs (last recorded): Most Recent Systolic BP: 162 mmHg (06/25/23730) Most Recent Diastolic BP: 70 mmHg (06/25/23730) Pulse: 73 (06/25/23730) Resp: 22 (06/25/23730) Most Recent Temperature: 36.39 C (06/25/23730) Weight: 134 kg (295 lb 6.4 oz) (06/25/23646) SpO2: 100 % (06/25/23730) O2 flow rate: 2 L/MIN (06/25/23744) Allergies: Clarithromycin, Dextromethorphan, Doxylamine, Acwcsdnai-nzbyhxmvji-ps-apap, Amoxicillin,Food (see comments), Latex, and Sulfa antibiotics Activity: as tolerated Diet: age appropriate diet, cardiac diet, diabetic diet, low sodium, and 1.5L fluid restriction Orders Placed This Encounter Procedures Adult Complex Diet : Consistent Carbohydrate - 4 Choices (60 grams) --- Heart Healthy --- Fluid Restriction (ml): 1500 Code Status: Full Code Condition on Discharge: stable Isolation status: None Cognition: normal HOSPITAL CONSULTS ORDERED: CARDIOLOGY CONSULT IP WOUND CONSULT IP ADULT OCCUPATIONAL THERAPY CONSULT IP ADULT PHYSICAL THERAPY CONSULT IP PODIATRY CONSULT IP REFERRING PHYSICIAN: Ref: [id number]] NO STREET ADDRESS AVAILABLE None (office) None (fax) PRIMARY CARE PROVIDER: PCP: Natali Langston DO [address] [place] [address] [place] [address] / [facility] [address] (office) [phone] (fax) Note: To contact a physician responsible for this patients hospital care, please call [facility] [phone]. I spent a total of 45 minutes coordinating, documenting, and providing care for this patient excluding time spent in the performance of separately billed services. documented in this encounter Discharge Instructions * Discharge Instr - AVS* Indra Kang MD - 06/23/2023 11:06 AM EDT Discharge Date: 06/25/23 Brief summary of inpatient care: Alexandria Smith was admitted to [facility] on 06/17/2023 with chief complaint chest painfrom SNF, name - vazquez anand . The primary diagnosis at discharge was Acute on chronic Heart failure with preserved EF. Alexandria Smith is being discharged to [facility]. The Hospital Medicine physician(s) at the time of discharge included: Indra Kang MD To reach this Provider Sunday through Sunday (8:00 AM to 4:30 PM) for any questions or test results: Call [phone] For after-hours concerns: Call [phone] and have your provider paged, or the provider dehydrogenation converter helper for the Department of [facility] Medicine paged. Inpatient test results pending: none Operations & Procedures: none Code Status: Full Code Advance Directive Documentation: Advance Directive Does the Patient have an Advance Directive? No Diet: Carbohydrate-controlled diet, fluid restriction less than 1.5 L per day Activity: As tolerated Alexandria should continue the following therapies: Physical Therapy and Occupational Therapy PICC (Peripherally Inserted Catheter) Care: Prevent Infection. Use good hand hygiene by following the guidelines on this sheet. Don't touch thecatheter or dressing unless you need to. Always clean your hands before and after you come in contact with any part of the PICC. To wash your hands with soap and water: Wet your hands with warm water. (Avoid hot water, which can cause skin irritation when you wash your hands often) Apply enough soap to cover the entire surface of your hands, including your fingers. Rub your hands together briskly for at least 15 seconds. Make sure to rub the front and back of each hand up to the wrist, your fingers and fingernails, between the fingers, and each thumb. Rinse your hands with warm water. Dry your hands completely with a new, unused paper towel. Don't use a cloth towel or other reusabletowel. These can harbor germs. Use the paper towel to turn off the faucet, then throw it away. If you're in a bathroom, also use apaper towel to open the door instead of touching the handle. Keep the PICC dry. The catheter and dressing must stay dry. Don't go swimming, use a tub, or do other things that could get the PICC wet. When it comes to bathing, also avoid getting the catheter wet. You may use plastic wrap and tape to keep the catheter and dressing dry. You may also ask the homehealth nurse what products they may have to keep things dry. If the dressing does get wet, [facility] right away for help. Avoid activities or exercises that require major use of the arm. Additional Precautions: fall precaution Isolation Status: None Mentation at Discharge: normal Future Studies Required: BMP: date - weekly and CBC: date - weekly while on IVantibiotics Respiratory Support at Discharge: oxygen at 2 L : setting - 24 hours PRIMARY CARE PROVIDER: PCP: Natali Langston DO [address] [place] [address] Dr Lang [facility] / [facility] [address] (office) [phone] (fax) Special Instructions: End date for medications including antibiotics and anticoagulants: continue Ancef 2 g Q 12 H until 07/23/23 HEART FAILURE DISCHARGE INSTRUCTIONS Diagnosis: Congestive heart failure due to preserved ejection fraction Fluid Restrictions: 1.5 Liters per day Weight Monitoring: Weigh yourself every morning before you eat, using the same scale, and write it in your weight diary. Pneumonia vaccine: defer to PCP Influenza vaccine: defer to PCP Last EF: 55% Follow Up: See your primary care provider regularly and keep all scheduled appointments. CALL YOUR DOCTOR IF YOU: ? Have a weight gain of 5 pounds ? Notice your feet, legs, or hands are swollen ? Notice a fast heart beat or palpitations ? Have increased cough especially at night ? Notice fullness in abdomen ? Have a loss of appetite ? Become easily dizzy or lightheaded ? Feel more short of breath than usual ? Have dry mouth (sign of dehydration) ? Have muscle cramps (sign of dehydration) - Call your primary care physician or seek medical attention if worsening shortness of breath . Please have the patient return to the Emergency Department for any of the following: chest pain, chest pressure, chest tightness, difficulty breathing. The patient should not smoke or use tobacco products in any way! documented in this encounter Progress Notes * Indra Kang MD - 06/24/2023 12:45 PM EDT Images from the original note were not included. [facility] 3B-3011/W INTERVAL HISTORY: Patient reported nausea ,denies vomiting. Sob improved Diuresing well with IV lasix Weight loss 30 lbs since admission Intake/Output Summary (Last 24 hours) at 06/24/2023 1246 Last data filed at 06/24/2023 1209 Gross per 24 hour Intake 629.65 ml Output 4800 ml Net -4170.35 ml Objective Physical Exam Most Recent Vital Signs: BP: 160 mmHg/83 mmHg (06/24/23745) Pulse: 82 (06/24/23745) Temp: 36 C (06/24/23745) Temp Summary: Temp Min: 36 C (96.8 F) Max: 36.7 C (98.1 F) SpO2: 97 % (06/24/23745) O2 flow rate: 2 L/MIN (06/24/23809) Supplemental O2 Delivery: Nasal Cannula (06/24/23809) Constitutional: no acute distress HEENT: normal: normocephalic, atraumatic; no masses, tenderness, or adenopathy Neck: supple, normal range of motion, (+) unable assess JVD due to short neck CV: normal rate and rhythm, + murmur Chest: normal respiratory effort, (+)bilateral breath sounds are present anteriorly, posteriorly and bibasilar crackles Abdomen: soft, normal bowel sounds, no tenderness Extremities: (+) lymphedema Skin: warm, dry, intact: Neuro: alert, oriented to person, place, and time, Glascow Coma Score 15, (+) no focal deficits Psych: normal mood and affect, nonsuicidal, judgement normal, memory normal Power PICC Single Lumen Right;Upper Arm (Active) Number of days: 12 STUDIES: Encounter Orders Labs and other studies reviewed with pertinent findings noted below: Latest Reference Range & Units 06/24/23 04:31 Sodium 135 - 146 mmol/L 133 (L) Potassium 3.5 - 5.1 mmol/L 3.3 (L) Chloride 98 - 107 mmol/L 94 (L) CO2 22 - 32 mmol/L 24 BUN 6 - 20 mg/dL 32 (H) Creatinine 0.5 - 1.0 mg/dL 1.9 (H) Estimated Glomerular Filtration Rate >=60 mL/min 29 (L) Anion Gap 7 - 15 mmol/L 15 Glucose 70 - 120 mg/dL 101 Calcium 8.4 - 10.2 mg/dL 8.8 Magnesium 1.5 - 2.6 mg/dL 1.2 (L) Phosphorus 2.5 - 4.8 mg/dL 3.2 Protein 6.0 - 8.3 g/dL 6.5 (L): Data is abnormally low (H): Data is abnormally high Latest Reference Range & Units 06/24/23 04:31 CBC Rpt ! WBC 4.00 - 10.80 K/uL 9.05 RBC 3.85 - 5.15 M/uL 3.09 HGB 12.0 - 15.3 g/dL 8.8 (L) HCT 36.0 - 45.2 % 27.2 (L) MCV 81.5 - 97.5 fL 88.0 MCH 27.0 - 34.0 pg 28.5 MCHC 32.0 - 36.0 g/dL 32.4 RDW 11.5 - 15.5 % 18.1 PLT 140 - 400 K/uL 312 MPV 6.6 - 11.1 fL 11.5 !: Data is abnormal (L): Data is abnormally low Rpt: View report in Results Review for more information Assessment and Plan IMPRESSION : Principal Problem: Anasarca Active Problems: Type 2 diabetes mellitus, with long-term current use of insulin (HCC) Hypertension Hypothyroid Acute on chronic diastolic congestive heart failure (HCC) Moderate pulmonary hypertension (HCC) Chronic kidney disease, stage IV (severe) (HCC) Diabetic ulcer of right heel (HCC) Ambulatory dysfunction Hypomagnesemia Osteomyelitis of right foot (HCC) Iron deficiency anemia Cellulitis of index finger Resolved Problems: Chest pain Hypokalemia DIFFERENTIAL AND PLAN: Alexandria Smith is a 63 year old female with a PMHx of DM2, chronic diastolic heart failure, pulmonary HTN, CKD4, osteomyelitis of the right foot, HTN, hypothyroid presented to [facility] ED for chest pain, and worsening swelling. Admitted for anasarca due to acute on chronic CHF. She is diuresing well , loss 30 lbs in one week. Continue IV lasix 80 mg tid while in hospital , switch to PO torsemide 80 mg bid on discharge. Continue fluid restriction less than 1.5 L per day Daily weight, I/O KCL 40 meq bid for hypokalemia Nuclear stress test was attempted but the patient refused for 2 nd part due to claustrophobic. Stress imaging reviewed by swimming pool installer, showed normal perfusion inferior portion of the heart had reduced tracer counts possible attenuation however cannot confirm due to lack of resting images. Continuemedical management Continue IV Ancef 2 g bid until 07/23/23 for MSSA infection, left heel OM Prilosec for acid reflux , prn Zofran/tigan for nausea Return back to [facility] once authorization came back Insulin coverage as directed , BG's are controlled well VTE PPX with SC Lovenox PHARMACOLOGIC VTE PROPHYLAXIS: Enoxaparin CODE STATUS: Full Code EXPECTED DISCHARGE DATE: 06/23/2023 I spent a total of 55 minutes coordinating, documenting, and providing care for this patient excluding time spent in the performance of separately billed services. * Indra Kang MD - 06/23/2023 2:47 PM EDT Images from the original note were not included. [facility] 3B-3011/W INTERVAL HISTORY: Patient reported shortness of breath much better.Diuresing well with IV lasix. She is on 2 :L NC, SpO2 94% Intake/Output Summary (Last 24 hours) at 06/23/2023 1448 Last data filed at 06/23/2023 1400 Gross per 24 hour Intake 840 ml Output 6300 ml Net -5460 ml Objective Physical Exam Most Recent Vital Signs: BP: 162 mmHg/77 mmHg (06/23/23 1401) Pulse: 88 (06/23/23 1401) Temp: 36.61 C (06/23/23 07) Temp Summary: Temp Min: 36.5 C (97.7 F) Max: 36.7 C (98.1 F) SpO2: 94 % (06/23/23720) O2 flow rate: 2 L/MIN (04/13/24 0721) Supplemental O2 Delivery: Nasal Cannula (06/23/23 0721) Constitutional: no acute distress HEENT: normal: normocephalic, atraumatic; no masses, tenderness, or adenopathy Neck: supple, normal range of motion, (+) unable assess JVD due to short neck CV: normal rate and rhythm, no murmur, gallops or rub Chest: normal respiratory effort, (+)bilateral breath sounds are present anteriorly , demised posteriorly Abdomen: soft, normal bowel sounds, no tenderness Extremities: (+) lymphedema Skin: warm, dry, intact: Neuro: alert, oriented to person, place, and time, Glascow Coma Score 15, (+) no focal deficits Psych: normal mood and affect, nonsuicidal, judgement normal, memory normal Power PICC Single Lumen Right;Upper Arm (Active) Number of days: 11 STUDIES: Encounter Orders Labs and other studies reviewed with pertinent findings noted below: Latest Reference Range & Units 06/23/23 03:37 CBC Rpt ! WBC 4.00 - 10.80 K/uL 8.51 RBC 3.85 - 5.15 M/uL 2.83 HGB 12.0 - 15.3 g/dL 8.1 (L) HCT 36.0 - 45.2 % 24.9 (L) MCV 81.5 - 97.5 fL 88.0 MCH 27.0 - 34.0 pg 28.6 MCHC 32.0 - 36.0 g/dL 32.5 RDW 11.5 - 15.5 % 18.2 PLT 140 - 400 K/uL 289 MPV 6.6 - 11.1 fL 11.9 !: Data is abnormal (L): Data is abnormally low Rpt: View report in Results Review for more information Latest Reference Range & Units 06/23/23 03:37 Sodium 135 - 146 mmol/L 133 (L) Potassium 3.5 - 5.1 mmol/L 3.2 (L) Chloride 98 - 107 mmol/L 97 (L) CO2 22 - 32 mmol/L 25 BUN 6 - 20 mg/dL 32 (H) Creatinine 0.5 - 1.0 mg/dL 1.8 (H) Estimated Glomerular Filtration Rate >=60 mL/min 31 (L) Anion Gap 7 - 15 mmol/L 11 Glucose 70 - 120 mg/dL 123 (H) Calcium 8.4 - 10.2 mg/dL 8.6 Magnesium 1.5 - 2.6 mg/dL 1.3 (L) Phosphorus 2.5 - 4.8 mg/dL 3.4 Protein 6.0 - 8.3 g/dL 5.9 (L) (L): Data is abnormally low (H): Data is abnormally high Assessment and Plan IMPRESSION : Principal Problem: Anasarca Active Problems: Type 2 diabetes mellitus, with long-term current use of insulin (HCC) Hypertension Hypothyroid Acute on chronic diastolic congestive heart failure (HCC) Moderate pulmonary hypertension (HCC) Chronic kidney disease, stage IV (severe) (HCC) Diabetic ulcer of right heel (HCC) Ambulatory dysfunction Hypomagnesemia Osteomyelitis of right foot (HCC) Iron deficiency anemia Cellulitis of index finger Resolved Problems: Chest pain Hypokalemia DIFFERENTIAL AND PLAN: Alexandria Smith is a 63 year old female with a PMHx of DM2, chronic diastolic heart failure, pulmonary HTN, CKD4, osteomyelitis of the right foot, HTN, hypothyroid presented to [facility] ED for chest pain, and worsening swelling. Admitted for anasarca due to acute on chronic CHF. Continue IV lasix 80 mg tid while in hospital , switch to PO torsemide 80 mg bid on discharge. Continue fluid restriction less than 1.5 L per day Daily weight, I/O KCL 40 meq today for hypokalemia Nuclear stress test was attempted but the patient refused for 2 nd part due to claustrophobic. Stress imaging reviewed by swimming pool installer, showed normal perfusion inferior portion of the heart had reduced tracer counts possible attenuation however cannot confirm due to lack of resting images. Continuemedical management Continue IV Ancef 2 g bid until 07/23/23 for MSSA infection, left heel OM Return back to [facility] once authorization came back Insulin coverage as directed , BG's are controlled well VTE PPX with SC Lovenox PHARMACOLOGIC VTE PROPHYLAXIS: Enoxaparin CODE STATUS: Full Code EXPECTED DISCHARGE DATE: 06/23/2023 I spent a total of 45 minutes coordinating, documenting, and providing care for this patient excluding time spent in the performance of separately billed services. * Tom Escamilla, [facility] - 06/23/2023 11:05 AM EDT PHARMACY DISCHARGE MEDICATION RECONCILIATION REVIEW [address] [place] [id number] Name: Alexandria Smith Location: [facility] 3B-3011/W Date: 06/23/2023 Time: 11:05 AM This discharge medication reconciliation was reviewed by a pharmacist and no corrections or interventions were required. * Vesta Israel PA-C - 06/22/2023 4:07 PM EDT PROGRESS NOTE - Cardiology [address] [id number] Name: Alexandria Smith Location: [facility] /W Date: 06/22/2023 Time: 4:07 PM SUBJECTIVE: Alexandria Smith is a 63 year old female with PMHx CKD stage 4, morbid obesity, diabetic foot ulcer, HFpEF, uncontrolled DM, and hx of metabolic encephalopathy that presented to [facility] ED 06/17/2023 for evaluation of chest pain. Noted to be volume overloaded. Reports she was not provided a low sodium diet at the [place] [facility]. Has had no further chest pain Breathing has improved. Abdominal distention and LE have improved. Patient continues to have mild cough with post nasal drip OBJECTIVE: Most Recent Vital Signs: BP: 157 mmHg/80 mmHg (06/22/23 153) Pulse: 73 (06/22/23 153) Temp: 36.5 C (06/22/231534) Temp Summary: Temp Min: 36.5 C (97.7 F) Max: 36.6 C (97.9 F) SpO2: 96 % (06/22/231534) O2 flow rate: 3 L/MIN (06/22/23 0910) Supplemental O2 Delivery: Room Air, None (06/22/231534) Vital Signs Last 24 Hours: Systolic BP: Most Recent Systolic BP Av mmHg Min: 142 mmHg Max: 157 mmHg Temperature: Most Recent Temperature Av.5 C Min: 36.5 C Max: 36.61 C Pulse: Pulse Av.8 Min: 70 Max: 85 Respirations: Resp Av Min: 20 Max: 20 SpO2: SpO2 Av.7 % Min: 93 % Max: 96 % Physical Exam Constitutional: Appearance: Normal appearance. She is obese. HENT: Head: Normocephalic. Eyes: Pupils: Pupils are equal, round, and reactive to light. Cardiovascular: Rate and Rhythm: Normal rate and regular rhythm. Pulses: Normal pulses. Heart sounds: Normal heart sounds. Pulmonary: Effort: Pulmonary effort is normal. Breath sounds: Normal breath sounds. Abdominal: General: Bowel sounds are normal. Palpations: Abdomen is soft. Musculoskeletal: General: Swelling present. Skin: General: Skin is warm and dry. Neurological: General: No focal deficit present. Mental Status: She is alert and oriented to person, place, and time. Psychiatric: Mood and Affect: Mood normal. LABS: Labs reviewed as indicated below: IMAGING: ECHO 06/04/2023 The qualitative LV ejection fraction is 55-59% (normal). The right ventricular cavity is mildly dilated. The right ventricular systolic function is normal. Mild mitral stenosis is present. Mild mitral regurgitation is present. Mild tricuspid regurgitation is present. Moderate pulmonary hypertension is present. ECHO 03/2023 EF 65-70% moderate left ventricular hypertrophy mild aortic valve stenosis [id number] mitral valve regurgitation moderate tricuspid regurgitation and right ventricular systolic pressure of 30-40 mm Hg IMPRESSION and PLAN: Acute on Chronic HFpEF Mild MR Mild TR Mild MS Moderate Pulmonary HTN Junctional Rhythm Morbid Obesity CKD Elevated Troponin secondary to Demand Ischemia Anemia -Volume status is very difficult to assess due to body habitus -Appears to have responded well to IV diuresis -Urine output is inaccurate due to incontinence. Weight is down. -Continue diuresis with IV lasix 80mg BID -Will plan to transition to po torsemide 80mg BID tomorrow Vesta Israel PA-C Patient care discussed and coordinated with Dr. Conway. Please refer to Dr. Conway's notes for further recommendations. I spent a total of 26 minutes on the date of service in preparation, delivery and documentation of the care provided to Alexandria Smith excluding any time spent in the performance of separately billed services. Associated attestation - Nan Conway MD - 06/22/2023 8:14 PM EDT I have reviewed the advanced practitioner's documentation on the date of service referenced in note, and I agree with, and take responsibility for the plan of care. I spent a total of 20 minutes coordinating, documenting, and providing care for this patient excluding time spent in the performance of separately billed services or time spent by another provider/QHP. 63-year-old with morbid obesity stage IV kidney failure heart failure with preserved ejection fraction Has been responding well to diuresis continue with IV diuresis and transition on discharge to torsemide 80 mg twice daily please call with questions will sign off * Diamond Kaur PA-C - 06/22/2023 7:19 AM EDT Images from the original note were not included. [facility] 3B-3011/W [facility] Medicine - Progress Note SUMMARY: Alexandria Smith is a 63 year old female with a PMHx of DM2, chronic diastolic heart failure, pulmonary HTN, CKD4, osteomyelitis of the right foot, HTN, hypothyroid presented to [facility] ED for chest pain, and worsening swelling. Admitted for anasarca due to acute on chronic CHF. INTERVAL HISTORY: Patient seen and examined at bedside earlier today. Patient reports feeling much better today, nausea has resolved, however she feels she has no appetite. Her finger is feeling better, has no pain. Denies chest pain and shortness of breath currently. Patient was having some shortness of breath lastevening and she requested her O2, states she is on 3L of O2 PRN. Denies fevers, chills, abdominal pain. Feels that her legs are still swollen, but continues to have increased urine output. Patient refused second part of stress test. Patient is down 4lbs, but unsure if accurate due to consistency of standing weights. Intake/Output Summary (Last 24 hours) at 06/22/2023 0719 Last data filed at 06/22/2023 0347 Gross per 24 hour Intake 729.73 ml Output 3150 ml Net -2420.27 ml Objective Physical Exam Most Recent Vital Signs: BP: 148 mmHg/61 mmHg (06/22/23446) Pulse: 70 (06/22/23446) Temp: 36.61 C (06/21/232323) Temp Summary: Temp Min: 36.6 C (97.9 F) Max: 37.3 C (99.1 F) SpO2: 93 % (06/21/232323) O2 flow rate: 2 L/MIN (06/21/232327) Supplemental O2 Delivery: Nasal Cannula (06/21/232327) Physical Exam Vitals and nursing note reviewed. Constitutional: Appearance: Normal appearance. She is not ill-appearing. HENT: Head: Normocephalic and atraumatic. Mouth/Throat: Mouth: Mucous membranes are dry. Cardiovascular: Rate and Rhythm: Normal rate and regular rhythm. Pulmonary: Effort: Pulmonary effort is normal. No respiratory distress. Breath sounds: Normal breath sounds. No wheezing or rhonchi. Abdominal: General: Bowel sounds are normal. Palpations: Abdomen is soft. Tenderness: There is no abdominal tenderness. Musculoskeletal: Right lower leg: Edema present. Left lower leg: Edema present. Skin: General: Skin is warm and dry. Capillary Refill: Capillary refill takes less than 2 seconds. Comments: Bandage placed on right index finger. No erythema extending up finger. Neurological: General: No focal deficit present. Mental Status: She is alert and oriented to person, place, and time. Power PICC Single Lumen Right;Upper Arm (Active) Number of days: 10 STUDIES: Encounter Orders Labs and other studies reviewed personally by me with pertinent findings noted below: Recent Results (from the past 24 hour(s)) GLUCOSE METER, POINT OF CARE Collection Time: 06/21/23 7:37 AM Result Value Ref Range Glucose Meter 144 (H) 70 - 120 mg/dL GLUCOSE METER, POINT OF CARE Collection Time: 06/21/23 11:27 AM Result Value Ref Range Glucose Meter 201 (H) 70 - 120 mg/dL GLUCOSE METER, POINT OF CARE Collection Time: 06/21/23 4:39 PM Result Value Ref Range Glucose Meter 150 (H) 70 - 120 mg/dL GLUCOSE METER, POINT OF CARE Collection Time: 06/21/23 10:04 PM Result Value Ref Range Glucose Meter 185 (H) 70 - 120 mg/dL COMPREHENSIVE METABOLIC PANEL Collection Time: 06/22/23 5:16 AM Result Value Ref Range BUN 35 (H) 6 - 20 mg/dL Creatinine 1.9 (H) 0.5 - 1.0 mg/dL Estimated Glomerular Filtration Rate 29 (L) >=60 mL/min Sodium 132 (L) 135 - 146 mmol/L Potassium 3.6 3.5 - 5.1 mmol/L Chloride 97 (L) 98 - 107 mmol/L CO2 23 22 - 32 mmol/L Anion Gap 12 7 - 15 mmol/L Glucose 154 (H) 70 - 120 mg/dL Albumin 2.4 (L) 3.8 - 5.0 g/dL AST 41 (H) 10 - 35 U/L Alkaline Phosphatase 296 (H) 35 - 130 U/L Bilirubin, Total 0.2 <=1.2 mg/dL Calcium 8.7 8.4 - 10.2 mg/dL Protein 6.4 6.0 - 8.3 g/dL ALT <5 (L) 10 - 35 U/L CBC Collection Time: 06/22/23 5:16 AM Result Value Ref Range WBC 8.89 4.00 - 10.80 K/uL RBC 2.93 3.85 - 5.15 M/uL HGB 8.1 (L) 12.0 - 15.3 g/dL HCT 26.3 (L) 36.0 - 45.2 % MCV 89.8 81.5 - 97.5 fL MCH 27.6 27.0 - 34.0 pg MCHC 30.8 32.0 - 36.0 g/dL RDW 18.6 11.5 - 15.5 % PLT 283 140 - 400 K/uL MPV 11.3 6.6 - 11.1 fL nRBCs 0 <=0 /100 WBCs MAGNESIUM Collection Time: 06/22/23 5:16 AM Result Value Ref Range Magnesium 1.5 1.5 - 2.6 mg/dL PHOSPHORUS Collection Time: 06/22/23 5:16 AM Result Value Ref Range Phosphorus 3.4 2.5 - 4.8 mg/dL Assessment and Plan IMPRESSION : Principal Problem: Anasarca Active Problems: Type 2 diabetes mellitus, with long-term current use of insulin (HCC) Hypertension Hypothyroid Acute on chronic diastolic congestive heart failure (HCC) Moderate pulmonary hypertension (HCC) Chronic kidney disease, stage IV (severe) (HCC) Diabetic ulcer of right heel (HCC) Ambulatory dysfunction Hypomagnesemia Osteomyelitis of right foot (HCC) Iron deficiency anemia Cellulitis of index finger Resolved Problems: Chest pain Hypokalemia ASSESSMENT/PLAN: Admitted for acute on chronic heart failure with anasarca and chest pain. - Continue fluid restriction of 1500cc. - Strict I&Os and daily standing weights. - Increase lasix 80mg to TID. - Appreciate cardiology input. - Hypokalemia has resolved. - Continue to monitor Customer Success Specialist (stable at 1.9). - Hyponatremia of 132, continue to monitor. - Right index finger appears locally infected, but redness has not spread pass DIP and no purulent drainage noted with no leukocytosis. Will continue ancef for osteomyelitis, this will cross cover finger. - HGB has improved today. - Supportive treatment for coronavirus. - Check CBC, BMP, mag and phos in AM. PHARMACOLOGIC VTE PROPHYLAXIS: Enoxaparin CODE STATUS: Full Code EXPECTED DISCHARGE DATE: 06/24/2023 I spent a total of 50 minutes coordinating, documenting, and providing care for this patient excluding time spent in the performance of separately billed services. Case and plan of care discussed with my attending, Dr. Wolff. Diamond Kaur PA-C Associated attestation - Indra Kang MD - 06/22/2023 12:02 PM EDT I have reviewed the advanced practitioner's documentation on the date of service referenced in note, and I agree with, and take responsibility for the plan of care. * Diamond Kaur PA-C - 06/21/2023 10:54 AM EDT Images from the original note were not included. [facility] 3B-3011/W [facility] Medicine - Progress Note SUMMARY: Alexandria Smith is a 63 year old female with a PMHx of DM2, chronic diastolic heart failure, pulmonary HTN, CKD4, osteomyelitis of the right foot, HTN, hypothyroid presented to [facility] ED for chest pain, and worsening swelling. Admitted for anasarca due to acute on chronic CHF. INTERVAL HISTORY: Patient seen and examined at bedside earlier today. Patient reports feeling much better today, nausea has resolved. Her finger is feeling better, has no pain. Denies chest pain and shortness of breath currently. Denies fevers, chills, abdominal pain. Feels that her legs are still swollen, but continues to have increased urine output. Patient refused second part of stress test. Intake/Output Summary (Last 24 hours) at 06/21/2023 1056 Last data filed at 06/21/2023 0602 Gross per 24 hour Intake 757.38 ml Output 1600 ml Net -842.62 ml Objective Physical Exam Most Recent Vital Signs: BP: 155 mmHg/64 mmHg (06/21/23699) Pulse: 68 (06/21/23699) Temp: 35.89 C (06/21/23699) Temp Summary: Temp Min: 35.9 C (96.6 F) Max: 36.9 C (98.4 F) SpO2: 98 % (06/21/23699) O2 flow rate: 2 L/MIN (06/21/23700) Supplemental O2 Delivery: Nasal Cannula (06/21/23700) Physical Exam Vitals and nursing note reviewed. Constitutional: Appearance: Normal appearance. She is ill-appearing. HENT: Head: Normocephalic and atraumatic. Mouth/Throat: Mouth: Mucous membranes are dry. Cardiovascular: Rate and Rhythm: Normal rate and regular rhythm. Pulmonary: Effort: Pulmonary effort is normal. No respiratory distress. Breath sounds: Normal breath sounds. No wheezing or rhonchi. Abdominal: General: Bowel sounds are normal. Palpations: Abdomen is soft. Tenderness: There is no abdominal tenderness. Musculoskeletal: Right lower leg: Edema present. Left lower leg: Edema present. Skin: General: Skin is warm and dry. Capillary Refill: Capillary refill takes less than 2 seconds. Comments: Bandage placed on right index finger. No erythema extending up finger. Neurological: General: No focal deficit present. Mental Status: She is alert and oriented to person, place, and time. Power PICC Single Lumen Right;Upper Arm (Active) Number of days: 9 STUDIES: Encounter Orders Labs and other studies reviewed personally by me with pertinent findings noted below: Recent Results (from the past 24 hour(s)) GLUCOSE METER, POINT OF CARE Collection Time: 06/20/23 11:22 AM Result Value Ref Range Glucose Meter 176 (H) 70 - 120 mg/dL GLUCOSE METER, POINT OF CARE Collection Time: 06/20/23 4:58 PM Result Value Ref Range Glucose Meter 164 (H) 70 - 120 mg/dL GLUCOSE METER, POINT OF CARE Collection Time: 06/20/23 9:24 PM Result Value Ref Range Glucose Meter 176 (H) 70 - 120 mg/dL COMPREHENSIVE METABOLIC PANEL Collection Time: 06/21/23 3:19 AM Result Value Ref Range BUN 32 (H) 6 - 20 mg/dL Creatinine 2.0 (H) 0.5 - 1.0 mg/dL Estimated Glomerular Filtration Rate 28 (L) >=60 mL/min Sodium 132 (L) 135 - 146 mmol/L Potassium 4.1 3.5 - 5.1 mmol/L Chloride 99 98 - 107 mmol/L CO2 21 (L) 22 - 32 mmol/L Anion Gap 12 7 - 15 mmol/L Glucose 128 (H) 70 - 120 mg/dL Albumin 2.1 (L) 3.8 - 5.0 g/dL AST 46 (H) 10 - 35 U/L Alkaline Phosphatase 290 (H) 35 - 130 U/L Bilirubin, Total 0.2 <=1.2 mg/dL Calcium 8.4 8.4 - 10.2 mg/dL Protein 6.1 6.0 - 8.3 g/dL ALT <5 (L) 10 - 35 U/L CBC Collection Time: 06/21/23 3:19 AM Result Value Ref Range WBC 8.53 4.00 - 10.80 K/uL RBC 2.69 3.85 - 5.15 M/uL HGB 7.6 (L) 12.0 - 15.3 g/dL HCT 24.7 (L) 36.0 - 45.2 % MCV 91.8 81.5 - 97.5 fL MCH 28.3 27.0 - 34.0 pg MCHC 30.8 32.0 - 36.0 g/dL RDW 18.8 11.5 - 15.5 % PLT 271 140 - 400 K/uL MPV 12.1 6.6 - 11.1 fL nRBCs 0 <=0 /100 WBCs MAGNESIUM Collection Time: 06/21/23 3:19 AM Result Value Ref Range Magnesium 1.7 1.5 - 2.6 mg/dL PHOSPHORUS Collection Time: 06/21/23 3:19 AM Result Value Ref Range Phosphorus 3.3 2.5 - 4.8 mg/dL GLUCOSE METER, POINT OF CARE Collection Time: 06/21/23 7:37 AM Result Value Ref Range Glucose Meter 144 (H) 70 - 120 mg/dL Assessment and Plan IMPRESSION : Principal Problem: Anasarca Active Problems: Type 2 diabetes mellitus, with long-term current use of insulin (HCC) Hypertension Hypothyroid Acute on chronic diastolic congestive heart failure (HCC) Moderate pulmonary hypertension (HCC) Chronic kidney disease, stage IV (severe) ([facility]) Diabetic ulcer of right heel ([facility]) Ambulatory dysfunction Hypomagnesemia Osteomyelitis of right foot (HCC) Iron deficiency anemia Cellulitis of index finger Resolved Problems: Chest pain Hypokalemia ASSESSMENT/PLAN: Admitted for acute on chronic heart failure with anasarca and chest pain. - Continue fluid restriction of 1500cc. - Strict I&Os and daily standing weights. - Increase lasix 80mg to TID. - One time dose of metolazone 5m g today. - Appreciate cardiology input. - Hypokalemia has resolved. 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 - Right index finger appears locally infected, but redness has not spread pass DIP and no purulent drainage noted with no leukocytosis. Will continue ancef for osteomyelitis, this will cross cover finger. - Check ferritin. Patient had iron studies on 06/03/23 that showed decreased iron and iron binding capacity. Patient has had venofer in the past at an OSH. Will consider venofer pending ferritin. - Supportive treatment for coronavirus. - Check CBC, BMP, mag and phos in AM. PHARMACOLOGIC VTE PROPHYLAXIS: Enoxaparin CODE STATUS: Full Code EXPECTED DISCHARGE DATE: 06/23/2023 I spent a total of 50 minutes coordinating, documenting, and providing care for this patient excluding time spent in the performance of separately billed services. Case and plan of care discussed with my attending, Dr. Wolff. Diamond Kaur PA-C Associated attestation - Jose Martin Wolff MD - 06/21/2023 12:27 PM EDT I have reviewed the advanced practitioner's documentation on the date of service referenced in note, and I agree with, and take responsibility for the plan of care. * Vesta Israel PA-C - 06/20/2023 12:41 PM EDT PROGRESS NOTE - Cardiology [facility]-[address] [place] [id number] Name: Alexandria Smith Location: [facility] 3B-3011/D Date: 06/20/2023 Time: 12:41 PM SUBJECTIVE: Alexandria Smith is a 63 year old female with PMHx CKD stage 4, morbid obesity, diabetic foot ulcer, HFpEF, uncontrolled DM, and hx of metabolic encephalopathy that presented to [facility] ED 06/17/2023 for evaluation of chest pain. Noted to be volume overloaded. Has had no further chest pain Breathing has improved. Abdominal distention has improved. OBJECTIVE: Most Recent Vital Signs: BP: 117 mmHg/81 mmHg (06/20/23752) Pulse: 68 (06/20/23752) Temp: 36.5 C (06/20/23752) Temp Summary: Temp Min: 36.5 C (97.7 F) Max: 37.2 C (99 F) SpO2: 95 % (06/20/23752) O2 flow rate: 2 L/MIN (06/20/23752) Supplemental O2 Delivery: Nasal Cannula (06/20/23752) Vital Signs Last 24 Hours: Systolic BP: Most Recent Systolic BP Av mmHg Min: 117 mmHg Max: 161 mmHg Temperature: Most Recent Temperature Av.9 C Min: 36.5 C Max: 37.22 C Pulse: Pulse Av Min: 68 Max: 74 Respirations: Resp Av Min: 16 Max: 19 SpO2: SpO2 Av.3 % Min: 94 % Max: 97 % Physical Exam Constitutional: Appearance: Normal appearance. She is obese. HENT: Head: Normocephalic. Eyes: Pupils: Pupils are equal, round, and reactive to light. Cardiovascular: Rate and Rhythm: Normal rate and regular rhythm. Pulses: Normal pulses. Heart sounds: Normal heart sounds. Pulmonary: Effort: Pulmonary effort is normal. Breath sounds: Normal breath sounds. Abdominal: General: Bowel sounds are normal. Palpations: Abdomen is soft. Musculoskeletal: General: Swelling present. Skin: General: Skin is warm and dry. Neurological: General: No focal deficit present. Mental Status: She is alert and oriented to person, place, and time. Psychiatric: Mood and Affect: Mood normal. LABS: Labs reviewed as indicated below: IMAGING: ECHO 06/04/2023 The qualitative LV ejection fraction is 55-59% (normal). The right ventricular cavity is mildly dilated. The right ventricular systolic function is normal. Mild mitral stenosis is present. Mild mitral regurgitation is present. Mild tricuspid regurgitation is present. Moderate pulmonary hypertension is present. ECHO 03/2023 EF 65-70% moderate left ventricular hypertrophy mild aortic valve stenosis [id number] mitral valve regurgitation moderate tricuspid regurgitation and right ventricular systolic pressure of 30-40 mm Hg IMPRESSION and PLAN: Acute on Chronic HFpEF Mild MR Mild TR Mild MS Moderate Pulmonary HTN Junctional Rhythm Morbid Obesity CKD Elevated Troponin secondary to Demand Ischemia Anemia -Volume status is very difficult to assess due to body habitus -Urine output is inaccurate due to incontinence. Weight remains the same -Nuclear stress test unable to be completed due to significant anxiety and claustrophobia -Continue diuresis with IV lasix 80mg BID Vesta Israel PA-C Patient care discussed and coordinated with Dr. Conway. Please refer to Dr. Conway's notes for further recommendations. I spent a total of 28 minutes on the date of service in preparation, delivery and documentation of the care provided to Alexandria Smith excluding any time spent in the performance of separately billed services. Associated attestation - Nan Conway MD - 06/20/2023 5:59 PM EDT I have reviewed the advanced practitioner's documentation on the date of service referenced in note, and I agree with, and take responsibility for the plan of care. I spent a total of 20 minutes coordinating, documenting, and providing care for this patient excluding time spent in the performance of separately billed services or time spent by another provider/QHP. 63-year-old with known history of heart failure with preserved ejection fraction moderate pulmonaryhypertension morbid obesity chronic kidney disease mildly elevated troponins Responding to IV diuresis we will need accurate weights two-day nuclear stress test was [id number] day underwent underwent stress portion had hard time in the scanner. Patient reports that she was claustrophobic and did not want to do the 2nd part resting portion of the test. Stress imaging shows predominantly normal perfusion inferior portion of the heart had reduced tracer counts possible attenuation however can not confirm due to lack of resting images. Continue with medical management and continue IV diuresis * Diamond Kaur PA-C - 06/20/2023 10:51 AM EDT Images from the original note were not included. [facility] 3B-3011/D Hospital Medicine - Progress Note SUMMARY: Alexandria Smith is a 63 year old female with a PMHx of DM2, chronic diastolic heart failure, pulmonary HTN, CKD4, osteomyelitis of the right foot, HTN, hypothyroid presented to [facility] ED for chest pain, and worsening swelling. Admitted for anasarca due to acute on chronic CHF. INTERVAL HISTORY: Patient seen and examined at bedside earlier today. Reports nausea, has not requested anything for nausea. States she does not want to have the second part of her stress test today as she felt anxious and nauseated yesterday during stress test. Patient also reporting right index pain and swelling. States she thinks she has been biting it in her sleep. States she had a morena of skin hanging from it this morning and she pulled it off. Reports some pus came out, no drainage now. Denies chest pain and shortness of breath currently. Denies fevers, chills, abdominal pain. Feels that her legs are still swollen. Has had increased urine output per patient since admission. Intake/Output Summary (Last 24 hours) at 06/20/2023 1052 Last data filed at 06/20/2023 0902 Gross per 24 hour Intake 720 ml Output 1550 ml Net -830 ml Objective Physical Exam Most Recent Vital Signs: BP: 117 mmHg/81 mmHg (06/20/23 0753) Pulse: 68 (06/20/23752) Temp: 36.5 C (06/20/23752) Temp Summary: Temp Min: 36.5 C (97.7 F) Max: 37.2 C (99 F) SpO2: 95 % (06/20/23752) O2 flow rate: 2 L/MIN (06/20/23752) Supplemental O2 Delivery: Nasal Cannula (06/20/23752) Physical Exam Vitals and nursing note reviewed. Constitutional: Appearance: Normal appearance. She is ill-appearing. HENT: Head: Normocephalic and atraumatic. Mouth/Throat: Mouth: Mucous membranes are dry. Cardiovascular: Rate and Rhythm: Normal rate and regular rhythm. Pulmonary: Effort: Pulmonary effort is normal. No respiratory distress. Breath sounds: Normal breath sounds. No wheezing or rhonchi. Abdominal: General: Bowel sounds are normal. Palpations: Abdomen is soft. Tenderness: There is no abdominal tenderness. Musculoskeletal: Right lower leg: Edema present. Left lower leg: Edema present. Skin: General: Skin is warm and dry. Capillary Refill: Capillary refill takes less than 2 seconds. Comments: Right index finger has an open wound with mild surrounding erythema, no drainage noted. Neurological: General: No focal deficit present. Mental Status: She is alert and oriented to person, place, and time. Power PICC Single Lumen Right;Upper Arm (Active) Number of days: 8 STUDIES: Encounter Orders Labs and other studies reviewed personally by me with pertinent findings noted below: Recent Results (from the past 24 hour(s)) GLUCOSE METER, POINT OF CARE Collection Time: 06/19/23 4:24 PM Result Value Ref Range Glucose Meter 237 (H) 70 - 120 mg/dL RESPIRATORY PATHOGEN PANEL, PCR Collection Time: 06/19/23 8:21 PM Result Value Ref Range Adenovirus by PCR Negative Negative Coronavirus 229E by PCR Negative Negative Coronavirus HKU1 by PCR Negative Negative Coronavirus NL63 by PCR Negative Negative Coronavirus OC43 by PCR Positive (A) Negative Coronavirus SARS-CoV-2 by PCR Negative Negative Human Metapneumovirus by PCR Negative Negative Rhinovirus/Enterovirus by PCR Negative Negative Influenza A Virus by PCR Negative Negative Influenza B Virus by PCR Negative Negative Parainfluenza Virus 1 by PCR Negative Negative Parainfluenza Virus 2 by PCR Negative Negative Parainfluenza Virus 3 by PCR Negative Negative Parainfluenza Virus 4 by PCR Negative Negative Respiratory Syncytial Virus by PCR Negative Negative Bordetella pertussis by PCR Negative Negative Chlamydia pneumoniae by PCR Negative Negative Mycoplasma pneumoniae by PCR Negative Negative Bordetella parapertussis by PCR Negative Negative GLUCOSE METER, POINT OF CARE Collection Time: 06/19/23 9:29 PM Result Value Ref Range Glucose Meter 210 (H) 70 - 120 mg/dL CBC Collection Time: 06/20/23 5:21 AM Result Value Ref Range WBC 10.70 4.00 - 10.80 K/uL RBC 2.93 3.85 - 5.15 M/uL HGB 8.3 (L) 12.0 - 15.3 g/dL HCT 27.0 (L) 36.0 - 45.2 % MCV 92.2 81.5 - 97.5 fL MCH 28.3 27.0 - 34.0 pg MCHC 30.7 32.0 - 36.0 g/dL RDW 19.1 11.5 - 15.5 % PLT 271 140 - 400 K/uL MPV 12.4 6.6 - 11.1 fL nRBCs 0 <=0 /100 WBCs BASIC METABOLIC PANEL Collection Time: 06/20/23 5:25 AM Result Value Ref Range BUN 33 (H) 6 - 20 mg/dL Creatinine 2.1 (H) 0.5 - 1.0 mg/dL Estimated Glomerular Filtration Rate 26 (L) >=60 mL/min Sodium 134 (L) 135 - 146 mmol/L Potassium 4.3 3.5 - 5.1 mmol/L Chloride 99 98 - 107 mmol/L CO2 24 22 - 32 mmol/L Anion Gap 11 7 - 15 mmol/L Glucose 220 (H) 70 - 120 mg/dL Calcium 8.5 8.4 - 10.2 mg/dL MAGNESIUM Collection Time: 06/20/23 5:25 AM Result Value Ref Range Magnesium 1.9 1.5 - 2.6 mg/dL GLUCOSE METER, POINT OF CARE Collection Time: 06/20/23 7:57 AM Result Value Ref Range Glucose Meter 171 (H) 70 - 120 mg/dL GLUCOSE METER, POINT OF CARE Collection Time: 06/20/23 11:22 AM Result Value Ref Range Glucose Meter 176 (H) 70 - 120 mg/dL Assessment and Plan IMPRESSION : Principal Problem: Anasarca Active Problems: Type 2 diabetes mellitus, with long-term current use of insulin (HCC) Hypertension Hypothyroid Acute on chronic diastolic congestive heart failure (HCC) Moderate pulmonary hypertension (HCC) Chronic kidney disease, stage IV (severe) (HCC) Diabetic ulcer of right heel (HCC) Ambulatory dysfunction Hypomagnesemia Osteomyelitis of right foot (HCC) Iron deficiency anemia Cellulitis of index finger Resolved Problems: Chest pain Hypokalemia ASSESSMENT/PLAN: Admitted for acute on chronic heart failure with anasarca and chest pain. - Continue fluid restriction of 1500cc. - Strict I&Os and daily standing weights. - Increase lasix 80mg to TID. - Encouraged patient to attempt second part of stress test today. - Hypokalemia has resolved. 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 - Right index finger appears locally infected, but redness has not spread pass DIP and no purulent drainage noted with no leukocytosis. Will continue ancef for osteomyelitis, this will cross cover finger. - Supportive treatment for coronavirus. - Zofran PRN for nausea - Tylenol PRN for pain. - Hydroxyzine PRN for anxiety. - Encouraged patient to request PRN medication if needed. - Check CBC, BMP, mag and phos in AM. PHARMACOLOGIC VTE PROPHYLAXIS: Enoxaparin CODE STATUS: Full Code EXPECTED DISCHARGE DATE: 06/23/2023 I spent a total of 52 minutes coordinating, documenting, and providing care for this patient excluding time spent in the performance of separately billed services. Case and plan of care discussed with my attending, Dr. Wolff. Diamond Kaur PA-C Associated attestation - Jose Martin Wolff MD - 06/20/2023 2:47 PM EDT I have reviewed the advanced practitioner's documentation on the date of service referenced in note, and I agree with, and take responsibility for the plan of care. * Dante Contreras DO - 06/19/2023 1:43 PM EDT Images from the original note were not included. [facility] 3B-3013/D INTERVAL HISTORY: Patient complains of starting with a slight sore throat and cough. Objective Physical Exam Most Recent Vital Signs: BP: 161 mmHg/63 mmHg (06/19/231522) Pulse: 68 (06/19/231522) Temp: 37.22 C (06/19/231522) Temp Summary: Temp Min: 36.6 C (97.9 F) Max: 37.2 C (99 F) SpO2: 97 % (06/19/231522) O2 flow rate: 2 L/MIN (06/18/23 1417) Supplemental O2 Delivery: Room Air, None (06/19/231522) Constitutional: no acute distress, morbidly obese CV: normal rate, normal rhythm Chest: normal respiratory effort, decreased breath sounds Abdomen: soft, no tenderness Extremities: Thick pitting edema up through thighs Neuro: alert, oriented to person, place, and time, generalized weakness Power PICC Single Lumen Right;Upper Arm (Active) Number of days: 7 STUDIES: Encounter Orders Labs and other studies reviewed with pertinent findings noted below: Magnesium 1.4 Creatinine 2.1, slightly increased Reviewed glucose Two day stress test in progress Assessment and Plan IMPRESSION : Principal Problem: Anasarca Active Problems: Type 1 diabetes mellitus with hemoglobin A1c goal of less than 7.0% ([facility]) Hypertension Hypothyroid Acute on chronic diastolic congestive heart failure (HCC) Moderate pulmonary hypertension (HCC) Chronic kidney disease, stage IV (severe) ([facility]) Diabetic ulcer of right heel ([facility]) Ambulatory dysfunction Hypomagnesemia Osteomyelitis of right foot ([facility]) Iron deficiency anemia Cellulitis of index finger Resolved Problems: Chest pain Hypokalemia DIFFERENTIAL AND PLAN: Patient undergoing a 2 day stress test as ordered by Cardiology, anticipate final results tomorrow Continue IV diuresis for significant anasarca/lower extremity swelling due to decompensated diastolic congestive heart failure and pulmonary hypertension and cor pulmonale Replace magnesium Glucoses have improved, continue to monitor glucose and cover with sliding scale Continue prior to admission antibiotics for osteomyelitis of the right heel Anticipate return to [facility] when patient closer to dry weight Cough medications Lower extremity Alfonso wraps Index finger with some mild cellulitis/colitis, add doxycycline to current cefazolin PHARMACOLOGIC VTE PROPHYLAXIS: Enoxaparin CODE STATUS: Full Code EXPECTED DISCHARGE DATE: 06/22/2023 * Dante Contreras DO - 06/18/2023 3:54 PM EDT Images from the original note were not included. [facility] 3B-3020/D INTERVAL HISTORY: Patient states she was feeling better. No recurrent chest pain Objective Physical Exam Most Recent Vital Signs: BP: 151 mmHg/76 mmHg (06/18/231416) Pulse: 63 (06/18/231416) Temp: 36.39 C (06/18/231416) Temp Summary: Temp Min: 36.2 C (97.2 F) Max: 36.6 C (97.9 F) SpO2: 100 % (06/18/231416) O2 flow rate: 2 L/MIN (06/18/231416) Supplemental O2 Delivery: Nasal Cannula (06/18/231416) Constitutional: no acute distress, morbidly obese CV: normal rate, normal rhythm Chest: normal respiratory effort, decreased breath sounds, few fine crackles at bases Abdomen: soft, large abdominal pannus, no tenderness, no significant edema in pannus Extremities: Thick pitting edema up through thighs and posterior hips Neuro: alert, oriented to person, place, and time, generalized weakness Power PICC Single Lumen Right;Upper Arm (Active) Number of days: 6 STUDIES: Encounter Orders Labs and other studies reviewed with pertinent findings noted below: Potassium 3.0, creatinine 1.9 Hemoglobin 7.6 TSH 3.57 Iron studies from end of May show iron-deficiency Assessment and Plan IMPRESSION : Principal Problem: Anasarca Active Problems: Type 1 diabetes mellitus with hemoglobin A1c goal of less than 7.0% (HCC) Hypertension Hypothyroid Acute on chronic diastolic congestive heart failure (HCC) Moderate pulmonary hypertension (HCC) Chronic kidney disease, stage IV (severe) (HCC) Diabetic ulcer of right heel (HCC) Ambulatory dysfunction Hypokalemia Hypomagnesemia Osteomyelitis of right foot (HCC) Iron deficiency anemia Resolved Problems: Chest pain DIFFERENTIAL AND PLAN: Patient presented with chest pain most likely due to decompensated heart failure and anasarca in the setting of pulmonary hypertension. Continue aggressive IV diuresis, monitor intake and output and daily weight Continue antibiotics as previously arranged for osteomyelitis of the right foot Monitor electrolytes and renal function Replace potassium Reviewed cardiology consultation, planning stress test tomorrow Continue to monitor glucose, continue Lantus, prandial insulin and sliding scale PHARMACOLOGIC VTE PROPHYLAXIS: Enoxaparin CODE STATUS: Full Code EXPECTED DISCHARGE DATE: 06/20/2023 documented in this encounter H&P Notes * Kali Mooney MD - 06/17/2023 9:40 PM EDT Images from the original note were not included. [facility] 3B-3020/D PRESENTING PROBLEM: chest pain HPI: This is a 63 yo woman with below pmh that includes morbid obesity, stage 3- 4 ckd, HTN, dm2, fibromyalgia, hypothyroid, anemia of chronic disease, and chf with preserved EF. She was admitted here2 weeks ago as she reports that her chf gradually became worse at [facility]. Four days ago, she was sent to [facility] after successful diuresis and treatment of diabetic foot ulcer. After going to [facility], she believes that her weight started to go back up and today she returned here with chest pain, chills, worsening dyspnea. She denies fever, productive cough, or diarrhea. While at [facility], she couldn't participate in rehab due to her foot ulcer and difficulty ambulating. ED course: chest pain improved with sl ntg and even better with morphine. ROS: see hpi for pertinent ros; 10 systems reviewed and otherwise negative Subjective Patient's past history, medications, and allergies were reviewed. Objective Physical Exam Most Recent Vital Signs: BP: 166 mmHg/76 mmHg (06/17/232099) Pulse: 90 (06/17/232099) Temp: 36.39 C (06/17/231749) Temp Summary: Temp Min: 36.4 C (97.5 F) Max: 36.4 C (97.5 F) SpO2: 100 % (06/17/232099) O2 flow rate: 4 L/MIN (06/17/231749) Supplemental O2 Delivery: Nasal Cannula (04/07/24 1750) Constitutional: chronically ill appearing middle aged woman resting in bed, not in acute distress. HEENT: normal: normocephalic, atraumatic Eyes: sclera and conjunctiva normal Neck: supple CV: normal rate Chest: normal respiratory effort, lungs clear to auscultation anteriorly, no wheezing Abdomen: soft, bowel sounds normal, no tenderness Extremities: 3+ edema Skin: warm, dry, feet covered in bandages. Neuro: alert, oriented to person, place, generalized weakness but otherwise non-focal STUDIES: Encounter Orders Labs and other studies reviewed with pertinent findings noted below: Results for orders placed or performed during the hospital encounter of 06/17/23 RESPIRATORY PATHOGEN PANEL, PCR Result Value Ref Range Adenovirus by PCR Negative Negative Coronavirus 229E by PCR Negative Negative Coronavirus HKU1 by PCR Negative Negative Coronavirus NL63 by PCR Negative Negative Coronavirus OC43 by PCR Negative Negative Coronavirus SARS-CoV-2 by PCR Negative Negative Human Metapneumovirus by PCR Negative Negative Rhinovirus/Enterovirus by PCR Negative Negative Influenza A Virus by PCR Negative Negative Influenza B Virus by PCR Negative Negative Parainfluenza Virus 1 by PCR Negative Negative Parainfluenza Virus 2 by PCR Negative Negative Parainfluenza Virus 3 by PCR Negative Negative Parainfluenza Virus 4 by PCR Negative Negative Respiratory Syncytial Virus by PCR Negative Negative Bordetella pertussis by PCR Negative Negative Chlamydia pneumoniae by PCR Negative Negative Mycoplasma pneumoniae by PCR Negative Negative Bordetella parapertussis by PCR Negative Negative AMYLASE Result Value Ref Range Amylase 27 (L) 28 - 100 U/L HEPATIC FUNCTION PANEL Result Value Ref Range Albumin 2.5 (L) 3.8 - 5.0 g/dL AST 30 10 - 35 U/L Alkaline Phosphatase 267 (H) 35 - 130 U/L ALT <5 (L) 10 - 35 U/L Bilirubin, Total <0.2 <=1.2 mg/dL Bilirubin, Direct <0.2 0.0 - 0.3 mg/dL Protein 6.4 6.0 - 8.3 g/dL LIPASE Result Value Ref Range Lipase 42 13 - 60 U/L MAGNESIUM Result Value Ref Range Magnesium 1.3 (L) 1.5 - 2.6 mg/dL PT INR Result Value Ref Range Prothrombin Time 14.9 11.6 - 15.2 seconds INR 1.2 0.8 - 1.2 TROPONIN T, HIGH SENSITIVITY Result Value Ref Range Troponin T, High Sensitivity 101 (HH) <=14 ng/L BNP, NT-PRO Result Value Ref Range BNP, NT-Pro 3,398 (H) <300 pg/mL CBC Result Value Ref Range WBC 9.85 4.00 - 10.80 K/uL RBC 2.99 3.85 - 5.15 M/uL HGB 8.4 (L) 12.0 - 15.3 g/dL HCT 27.2 (L) 36.0 - 45.2 % MCV 91.0 81.5 - 97.5 fL MCH 28.1 27.0 - 34.0 pg MCHC 30.9 32.0 - 36.0 g/dL RDW 19.2 11.5 - 15.5 % PLT 239 140 - 400 K/uL MPV 11.4 6.6 - 11.1 fL nRBCs 0 <=0 /100 WBCs DIFFERENTIAL, AUTOMATED Result Value Ref Range WBC 9.85 4.00 - 10.80 K/uL Neutrophils % 71.9 40.0 - 75.0 % Lymphocytes % 18.2 18.0 - 42.0 % Monocytes % 6.7 1.0 - 11.0 % Eosinophils % 2.3 0.0 - 6.0 % Basophils % 0.5 0.0 - 2.0 % Immature Granulocytes % 0.4 0.0 - 2.0 % Absolute Neutrophils 7.08 1.80 - 7.70 K/uL Absolute Lymphocytes 1.79 1.00 - 4.80 K/ul Absolute Monocytes 0.66 0.00 - 1.10 K/uL Absolute Eosinophils 0.23 0.00 - 0.70 K/uL Absolute Basophils 0.05 0.00 - 0.20 K/uL Absolute Immature Granulocytes 0.04 0.00 - 0.20 K/uL TROPONIN T, HIGH SENSITIVITY Result Value Ref Range Troponin T, High Sensitivity 100 (H) <=14 ng/L LACTATE Result Value Ref Range Lactate 1.0 0.4 - 2.0 mmol/L CT ABD/PELVIS WO IV/ORAL CONTRAST Final Result PROCEDURE INFORMATION: Exam: CT Abdomen And Pelvis Without Contrast Exam date and time: 06/17/2023 7:15 PM Age: 63 years old Clinical indication: Abdominal pain; Additional info: Left upper abdominal pain TECHNIQUE: Imaging protocol: Computed tomography of the abdomen and pelvis without contrast. Radiation optimization: All CT scans at this facility use at least one of these dose optimization techniques: automated exposure control; mA and/or kV adjustment per patient size (includes targeted exams where dose is matched to clinical indication); or iterative reconstruction. COMPARISON: 1. CT ABD/PELVIS WO IV/ORAL CONTRAST 06/02/2023 8:19 PM 2. DX XR HIP UNILAT 2-3 VIEWS INCLUDING AP PELVIS 06/01/2023 11:10 AM 3. DX XR CHEST 1 VIEW 06/17/2023 6:28 PM FINDINGS: Lungs: There is a parenchymal consolidation of the right lower lobe that is concerning for infection and is increased from prior. Scattered areas of bronchial wall thickening which are likely chronic inflammatory. A few areas of subpleural reticulation are noted, nonspecific. Pleural spaces: There is a moderate right pleural effusion. There is a small left pleural effusion. Heart: Trace pericardial fluid which is likely physiologic. Liver: Normal. Gallbladder and bile ducts: No acute process. Pancreas: Normal. Spleen: Normal. Adrenal glands: The adrenal glands appear normal. Kidneys and ureters: There are no soft tissue renal masses or hydronephrosis. Stomach and bowel: There are scattered colonic diverticula without evidence for active diverticulitis. Appendix: No evidence of appendicitis. Intraperitoneal space: Unremarkable. Vasculature: There is atherosclerotic disease of the visualized aorta and its major branch vessels. Lymph nodes: There are mildly prominent but nonenlarged and nonspecific retroperitoneal nodes. Mildly prominent nodes in the central mesentery, nonspecific. Urinary bladder: Unremarkable as visualized. Reproductive: No acute process. Bones/joints: There is diffuse degenerative disease of the visualized osseous structures. Soft tissues: There is diffuse anasarca. There are multiple new subcutaneous soft tissue densities throughout the abdomen which may reflect injection sites. IMPRESSION IMPRESSION: 1. Moderate right and small left pleural effusions with increasing consolidation at the right lung base, correlate with any concern for infection. 2. No acute inflammatory or obstructive process is identified. Incidental findings are described within the findings section. THIS DOCUMENT HAS BEEN ELECTRONICALLY SIGNED BY CHANTE OROSCO MD XR CHEST 1 VIEW Final Result PROCEDURE INFORMATION: Exam: XR Chest Exam date and time: 06/17/2023 6:28 PM Age: 63 years old Clinical indication: Pain; Angina pectoris; Additional info: Chest pain TECHNIQUE: Imaging protocol: Radiologic exam of the chest. Views: 1 view. COMPARISON: DX XR CHEST 1 VIEW 06/06/2023 12:20 PM FINDINGS: Tubes, catheters and devices: There is a right upper extremity PICC, catheter tip projects over the superior vena cava. Lungs: Hazy opacities appear somewhat decreased from the prior study. Pleural spaces: No large effusion or pneumothorax. Heart/Mediastinum: Stable cardiac and mediastinal contours. Bones/joints: No evidence of acute osseous abnormalities within the visualized portions of the thoracic spine and ribs. Osseous structures appear appropriate for patient age. IMPRESSION IMPRESSION: Hazy opacities appear somewhat decreased from the prior study. THIS DOCUMENT HAS BEEN ELECTRONICALLY SIGNED BY CHANTE OROSCO MD I personally reviewed EKG which shows RBBB and otherwise similar to prior study. I also personally reviewed abdominal ct and the infiltrate mentioned in right base is similar to that noted 2 weeks ago; there are bilateral effusions. Assessment and Plan IMPRESSION: Principal Problem: Chest pain Active Problems: Type 1 diabetes mellitus with hemoglobin A1c goal of less than 7.0% (HCC) Hypertension Hypothyroid Chronic kidney disease, stage IV (severe) (HCC) (HFpEF) heart failure with preserved ejection fraction (HCC) Diabetic ulcer of right heel (HCC) Ambulatory dysfunction Fibromyalgia Gastroesophageal reflux disease Hypokalemia Hypomagnesemia Resolved Problems: * No resolved hospital problems. * DIFFERENTIAL AND PLAN: Patient returns with main complaint of chest pain, that was amenable to nitroglycerin. She may havechronic angina. Her weight increased about 6 lbs since her discharge 3-4 days ago, and therefore she may have mild decompensation of her chf. The findings in right lung on ct abd, are most likely repr esentative of chf rather than true pneumonia but if she develops fever or productive cough, will need treatment for hcap. -admit to monitored bed -change diuretic to lasix 60 iv q8 -consult swimming pool installer -continue prn pain medications as she has fibromyalgia -continue ancef for treatment of foot ulcer, as she was discharged with picc line to continue this therapy -insulin for dm2 -replace potassium and magnesium PHARMACOLOGIC VTE PROPHYLAXIS:Enoxaparin CODE STATUS: Full Code EXPECTED DISCHARGE DATE: 1-2 days or more I spent a total of 60 minutes coordinating, documenting, and providing care for this patient excluding time spent in the performance of separately billed services. documented in this encounter Procedure Notes * Nan Conway MD - 06/17/2023 5:49 PM EDTAssociated Order(s): EKG REASON FOR STUDY: CP CONCLUSIONS: Sinus rhythm with 1st degree AV block Left axis deviation Right bundle branch block High QRS voltage may be normal variant or due to lve Abnormal ECG When compared with ECG of 03-Jun-2023 05:14, Sinus rhythm has replaced Wide QRS rhythm Ventricular Rate: 76 Atrial Rate: 76 LA Interval: 306 QRS Duration: 130 QT/QTc: 472/531 ms P-R-T [place]: 52 : -58 : 14 degrees documented in this encounter Consult Notes * Jessica Fung OT - 06/20/2023 1:25 PM EDTAssociated Order(s): ADULT OCCUPATIONAL THERAPY CONSULT IP GENERAL EVALUATION - Occupational Therapy [facility]-[address] [id number] Name: Alexandria Smith Location: [facility] [id number] Date: 06/20/2023 Time: 1325 Alexandria Smith is a 63 year old female. Per H&P "This is a 63 yo woman with below pmh that includes morbid obesity, stage 3-4 ckd, HTN,dm2, fibromyalgia, hypothyroid, anemia of chronic disease, and chf with preserved EF. She was admitted here 2 weeks ago as she reports that her chf gradually became worse at [facility].Four days ago, she was sent to [facility] after successful diuresis and treatment of diabetic foot ulcer. After going to [facility], she believes that her weight started to go back up and today she returned here with chest pain, chills, worsening dyspnea. She denies fever, productive cough, or diarrhea. While at [facility], she couldn't participate in rehab due to her foot ulcer and difficulty ambulating. ED course: chest pain improved with sl ntg and even better with morphine. ROS: see hpi for pertinent ros; 10 systems reviewed and otherwise negative" Patient Status: Inpatient Insurance: Payor: [facility] MEDICARE ADVANTAGE Plan: [employer] MEDICARE ADVANTAGE HMO Product Type: *No Product type* Patient Seen: at bedside, nursing cleared patient for therapy Patient Identified By: Name, ID Band and Date Diagnosis: CHF, weakness, fluid overload, decreased endurance (06/20/231324) Status of treatment: Evaluation completed (06/20/231412) Orders: OT evaluation and treatment (06/20/231324) Weight Bearing Status: Weight bearing as tolerated;RUE (with heel offloading shoe) (06/20/231324) Precautions: Alarms;Falls;Safety;Oxygen (heel off loading shoe) (06/20/231324) Total Treatment Time: 48 (06/20/231412) Past Medical History: Past Medical History: Diagnosis Date Acute kidney injury (HCC) Acute osteomyelitis of right calcaneus (HCC) Asthma DM type 2, goal A1c below 7 HTN, goal below 140/90 Migraine without aura Muscular deconditioning Other specified acquired hypothyroidism Umbilical hernia Past Surgical History: Past Surgical History: Procedure Laterality Date ANESTHESIA FOR UTERINE ENDOSCOPY BONE BIOPSY, TROCAR/NEEDLE,SUPERFIC Right 06/06/2023 BIOPSY BONE NEEDLE SUPERFICIAL performed by Lynnette Rasmussen DPM at OR [facility] INFORMATION wisdom teeth removed INJECTION CERVICAL/THORACIC 06/26/2014 INJECTION SPINE LUMBAR CERVICAL OR THORACIC performed by [place] Shavonne Gomezs, DO at OR [facility] INJECTION CERVICAL/THORACIC 07/10/2014 INJECTION SPINE LUMBAR CERVICAL OR THORACIC performed by Héctor Ochoasins, DO at OR [facility] KNEE ARTHROSCOPY/REPAIR LIGAMENT 1997 Knee Scope,Aid Ant Cruciate Repair x 2 Social History/Disposition Lives with: Alone (admitted for SNF) (06/20/231324) Assistance available: No (limited from home health nursing and family members) (06/20/231324) Dwelling type: Apartment (1st floor) (06/20/231324) Entry steps: 3 (2+1 without HR) (06/20/231324) Inside steps: None (06/20/231324) Bedroom location: 1st floor (06/20/231324) Bath location: 1st floor full bath (06/20/231324) Prior Level of Function Reported by: Patient (06/20/231324) Ambulation: Ambulatory with device (06/20/231324) Ambulatory Device: Rolling walker (or rollator) (06/20/231324) Grooming: Independent (06/20/231324) Bathing: Independent (06/20/231324) Dressing: Independent (AE for LB dressing) (06/20/231324) Feeding: Independent (06/20/231324) Toileting: Independent (uses toilet aid for bowel hygiene) (06/20/231324) Meal Prep: Independent (06/20/231324) Homemaking: Assistance (06/20/231324) Shopping: Independent (groceries delievered) (06/20/231324) Medication Management: Independent (06/20/231324) Money Management: Independent (06/20/231324) Occupation/Leisure Skills: (crafting, knitting, needlework) (06/20/231324) Driving: No (06/20/231324) Durable Medical Equipment at home: Rolling walker;Rollator;Shower chair;Grab bars;Leg senior branch manager;Sock aid;Insurance Auditor (06/20/231324) Subjective: "Yes they brought me the shoe." Pt stated when asked if podiatry had seen her yet. Pain: Patient has complaints of pain. Pain located in ribs - pt stated from coughing. 09/18 Staff Notified Observations Consciousness: Alert (06/20/231324) Orientation: Oriented times 4 (06/20/231324) Cognitive Limitations: (none noted on OT eval) (06/20/231324) Psychosocial: Patient can communicate basic needs;Patient can converse in a social setting (06/20/231324) Visual Deficits: (glasses) (06/20/231324) Sitting posture: Forward head;Rounded shoulders (06/20/231324) Standing posture: Forward head;Rounded shoulders (06/20/231324) Safety awareness: The Patient verbalizes insight of current deficits.;The Patient demonstrates carryover of insight during functional tasks. (06/20/231324) Other Findings Light touch sensation: RUE;LUE;Intact (06/20/231324) Coordination: LUE;RUE;Gross motor;Fine motor;Intact (06/20/231324) Current Functional Status: Bilateral Upper Extremity Hand Dominance: Right (06/20/231324) Range of Motion: WFL (06/20/231324) Strength Assessment: Deficits noted (06/20/231324) LUE: 4/5 (06/20/231324) RUE: 4/5 (06/20/231324) Self Care Able to provide self care: Yes (06/20/231324) Feeding: Independent (06/20/231324) Grooming: Supervision (Please comment) (06/20/231324) Toileting: Dependent (06/20/231324) Dressing Upper Body: Moderate Assistance (hospital gown) (06/20/231324) Lower Body: Dependent (for socks) (06/20/231324) Bathing Upper Body: Minimal Assistance (for back) (06/20/231324) Lower Body: Moderate Assistance (posterior matthew bathing. Lower legs/feet not completed d/t wraps placed by wound care) (06/20/231324) Functional Ambulation Assistive Device: Rolling walker (06/20/231324) Distance in feet:: 0 (static standing) (06/20/231324) Level of Assistance: Contact Guard (06/20/231324) OT Transfers Sit-Stand: Contact Guard (06/20/231324) Stand-Sit: Contact Guard (06/20/231324) Balance Sit (Static): Good (06/20/231324) Sit (Dynamic): Good (06/20/231324) Stand (Static): Good (06/20/231324) Stand (Dynamic): Good (06/20/231324) Alarm Status Patient positioned in: Chair (06/20/231324) With: Call villeda in reach (06/20/231324) Patient and Family Goals: to get well and to return home Patient Education Education Topic: Role of OT;Plan of care goals (06/20/231324) Review of Precautions: Safety;Fall (06/20/231324) Method of Education: Verbalized to patient (06/20/231324) Education Provided to: Patient (06/20/23) Response to Education: Receptive and agreeable to education (06/20/23 132) Barriers to learning: Medical status (06/20/231324) Treatment Provided: Therapeutic Activity: 30 minutes Evaluation Moderate Complexity 18 minutes - 19687: Patient was cooperative and pleasant during treatment session. Moderate complexity evaluation performed and 3-5 activity limitations were identified, including ADL deficit, functional mobility deficit, decreased strength, decreased endurance, and impaired balance. Minimal or moderate modification of the functional task was necessary to complete the evaluation. Deficits Requiring O.T. Treatment: Deficits requiring O.T. treatment needs: Balance;Endurance;ADL/self-care;Fine motor coordination;Functional mobility;IADL;Safety;Upper extremity strength;Upper extremity range of motion;Weakness (06/20/23 132) Goals: Bathing: Upper: modified independent (100% with device and additional time). Lower: modifiedindependent (100% with device and additional time) Dressing: Upper: modified independent (100% with device and additional time). Lower: modified independent (100% with device and additional time). Transfers with: Sit to Stand: modified independent (with device or slow) Toilet: modified independent (with device or slow) Bed to Chair/Wheelchair: modified independent (with device or slow). Demonstrates Grooming at modified independent (100% with device and additional time). Demonstrates toileting at modified independent (100% with device and additional time) Goal Time Frame: Within 1-10 treatment sessions Assessment: Pt tolerated OT session well. Pt was A&Ox4 and able to answer all prior functional level questions without assist. Pt was able to finish eating lunch independently. Pt brushed teeth and washed face with setup assist. Pt engaged in bathing/dressing tasks during OT session. While seated in chair, Pt was able to complete upper body bathing with Minimal Assistance for back. Pt donned hospital gown with Moderate Assistance for threading arms through gown and tying gown. Pt completed LB bathing with Moderate Assistance for posterior matthew. Pt donned socks with total assist. Pt performed sit > stand using RW for stability and required Contact Guard to complete anterior matthew bathing in stance. Pt returned to seated in chair. OT AM-PAC: 14 Pt requires assist with grooming, bathing, dressing , and toileting. As such, Would consider post-acute care services which may include home health, snf, outpatient therapy,or inpatient rehab. The level of care will be determined in collaboration with the patient, family/caregiver, and care team members. Skilled OT services warranted here at [facility] to address deficits in ADLs and functional mobility. Treatment Plan: Energy Conservation, Safety, Homemaking Skills, Bed mobility training, Functional Ambulation, Transfer training, Coordination Tasks, ROM exercises, Upper extremity strengthening, Balance activities, ADL training, and Endurance Anticipated Frequency (on eval): 1 to 3 times per week (06/20/231324) AM-PAC Help From Another Person Eating Meals: None (06/20/231324) Help From Another Person Taking Care of Personal Grooming: A little (06/20/231324) Help From Another Person To Put On/Take Off Upper Body Clothing: A lot (06/20/231324) Help From Another Person To Put On/Take Off Lower Body Clothing: Total (06/20/231324) Help From Another Person Toileting: A lot (06/20/231324) Help From Another Person Bathing: A lot (06/20/231324) OT AM-PAC Score: 14 (06/20/231324) OT AM-PAC t-Scale Score: 33.39 (06/20/231324) HLM (Highest Level of Mobility) Goal: Level 4 move to chair/commode (06/20/23 0900) * Olya Tolentino, PT - 06/20/2023 9:00 AM EDTAssociated Order(s): ADULT PHYSICAL THERAPY CONSULT IP GENERAL EVALUATION - Physical Therapy [facility] [id number] Name: Alexandria Smith Location: [facility] [id number]-3011/D Date: 06/20/2023 Time: 12:27 PM Alexandria Smith is a/an 63 year old female. Patient Status: Inpatient Insurance: Payor: [employer] MEDICARE ADVANTAGE Plan: [employer] MEDICARE ADVANTAGE HMO Product Type: *No Product type* Patient Seen: at bedside, nursing cleared patient for therapy Patient Identified By: Name, ID Band and Date Patient presents with HPI of the following, per MD note, "63 yo woman with below pmh that includes morbid obesity, stage 3-4 ckd, HTN, dm2, fibromyalgia, hypothyroid, anemia of chronic disease, and chf with preserved EF. She was admitted here 2 weeks ago as she reports that her chf gradually becameworse at [facility]. Four days ago, she was sent to [facility] after successful diuresis and treatment of diabetic foot ulcer. After going to [facility], she believes that her weight started to go back up and today she returned here with chest pain, chills, worsening dyspnea. She denies fever, productive cough, or diarrhea. While at [facility], she couldn't participate in rehab due to her foot ulcer and difficulty ambulating. Wound care was asked to see pt by Dr. Marshall for Rt heel wound. s/p Bone biopsy, right heel on 06/06/23. Culture results are positive for Staph aureus.Patient will required PICC line for antibiotics. WB status: NWB to RLE. Pt was to f/u w/ podiatry at [facility]. Pt reports she has not seen her clinical nurse manager since being at [facility]. Called [facility] to verify wound care. Staff reported, daily dressing changes w/ iodoform packing and DSD." Diagnosis: weakness, gait abnormality (06/20/23899) Status of treatment: OOB evaluation completed (06/20/23899) Orders: PT evaluation and treatment (06/20/23899) Weight Bearing Status: Weight bearing as tolerated;RLE (with heel offloading shoe) (06/20/23899) Precautions: Safety;Falls (06/20/23899) Total Treatment Time--free text: 54 (06/20/23899) Past Medical History: Past Medical History: Diagnosis Date Acute kidney injury (HCC) Acute osteomyelitis of right calcaneus (HCC) Asthma DM type 2, goal A1c below 7 HTN, goal below 140/90 Migraine without aura Muscular deconditioning Other specified acquired hypothyroidism Umbilical hernia Past Surgical History: Past Surgical History: Procedure Laterality Date ANESTHESIA FOR UTERINE ENDOSCOPY BONE BIOPSY, TROCAR/NEEDLE,SUPERFIC Right 06/06/2023 BIOPSY BONE NEEDLE SUPERFICIAL performed by Lynnette Rasmussen DPM at OR [facility] INFORMATION wisdom teeth removed INJECTION CERVICAL/THORACIC 06/26/2014 INJECTION SPINE LUMBAR CERVICAL OR THORACIC performed by Héctor Rios DO at OR [facility] INJECTION CERVICAL/THORACIC 07/10/2014 INJECTION SPINE LUMBAR CERVICAL OR THORACIC performed by Héctor Rios, at OR [facility] KNEE ARTHROSCOPY/REPAIR LIGAMENT 1998 Knee Scope,Aid Ant Cruciate Repair x 2 Subjective: "I want to go home" Social History/Disposition Lives with: Alone (however admitted from SNF) (06/20/23899) Assistance available: (not enough to meet current needs) (06/20/23899) Dwelling type: Apartment (1st floor) (06/20/23899) Entry steps: 3 (2+1) (06/20/23899) Inside steps: None (06/20/23899) Bedroom location: 1st floor (06/20/23899) Bath location: 1st floor full bath (06/20/23899) Prior Level of Function Reported by: Patient (06/20/23899) Ambulation: Ambulatory with assistance and device;Transfer via;Ambulatory with device (baseline is independent, but has required assist since recent rehab stays) (06/20/23899) Ambulatory Device: Rolling walker (06/20/23899) Transfer Via: Stand/pivot with assist (06/20/23899) Devices at home: Rolling walker (06/20/23899) Observations Consciousness: Alert (06/20/23899) Orientation: Oriented times 4 (06/20/23899) Psychosocial: Patient can communicate basic needs;Patient can converse in a social setting (06/20/23899) Other Findings: No (06/20/23899) Sitting Posture: Rounded shoulders;Forward head (06/20/23899) Standing Posture: Forward head;Rounded shoulders (06/20/23899) Pain: Patient has complaints of pain. Pain located "all over". 07/19 Staff Notified Range of Motion Range of Motion: WFL, except (soft tissue limitation) (06/20/23899) Strength Assessment Strength Assessment: Deficits noted (06/20/23899) WNL, except: (4-/5) (06/20/23899) Transfers Sit-Stand: Contact Guard (06/20/23899) Stand-Sit: Contact Guard (06/20/23899) W/C-Bed/Mat: Contact Guard (06/20/23899) Ambulation: Distance ambulated (feet): 10 Assistive Device: Rolling walker Assist: Contact Guard Balance Sit (Static): Good (06/20/23899) Sit (Dynamic): Good (06/20/23899) Stand (Static): Fair (06/20/23899) Stand (Dynamic): Fair (06/20/23899) Patient and or Family Goal(s): to get well and to return home Patient Education Review of Precautions: Safety;Weight Bearing Status;Fall (call villeda) (06/20/23899) Safety Awareness: Patient verbalizes insight of current deficits;Patient demonstrates carryover of insight during functional tasks;Patient can communicate basic needs;Needs cueing supervision (06/20/23899) Preferred learning method: Combination (06/20/23899) Barriers to learning: Medical Status (06/20/23899) Method of Education: Verbalized to patient;Demonstrated to patient (06/20/23899) Topic of Education: Safety with mobility, Goals/plan of care, Use of assistive device, Fall prevention, and d/c recommendations, heel offloading shoe Method of Education: Verbal discussion and explanation provided to patient regarding topics mentioned above: verbalized understanding and or agreement of this information Treatment Provided: Therapeutic Activities 23 minutes: bed mobility training transfer training D/c recommendations, heel offloading shoe Gait Training 15 minutes: gait training with rolling walker Evaluation Moderate Complexity 16 minutes - 60057: Patient was cooperative, pleasant, motivated, and alert during treatment session. Moderate complexity evaluation performed and 1-2 personal factors or comorbidities were identified that will impact plan of care, including multiple steps at home, lives alone at home, obesity, multiple orthopedic injuries, and weakness. Patient presents with limitations in strength, bed mobility, transfers, gait, balance, endurance, and safety, which will impact plan of care. These limitations will be addressed by the goals set for this patient. Alarm Status Patient positioned in: Chair (06/20/23899) With: Call villeda in reach (06/20/23899) Treatment Status: Treatment at bedside (06/20/23899) Goals: Demonstrate Bed Mobility with: Supine to Sit: minimal assistance (pt does 75%) Sit to supine: minimal assistance (pt does 75%) Demonstrate Transfers with: Sit to stand: supervision (with cues) Bed to chair: supervision (with cues) Demonstrate ambulation 50 feet with two 180' turns contact guard with RW Increase Safety: with all mobility tasks to decrease fall risk Time Frame: 1-8 visits Assessment: patient presents with an overall decline with functional mobility tasks. Currently requires CGA to modA for all mobility with use of RW. R heel offloading shoe donned for all WBing. Overall decreased activity tolerance evident as patient was fatigued with minimal activity and unable to progress. Patient verbalizes appropriate level of insight into current functional deficits and demonstrates overall good safety awareness. Based on clinical presentation patient is below functional baseline and is unsafe to mobilize without assistance. PT AM PAC is 14, Would consider post-acute careservices which may include home health, snf, outpatient therapy, or inpatient rehab. The level of care will be determined in collaboration with the patient, family/caregiver, and care team members. Will cont to provide skilled PT services while at [facility] Deficits requiring P.T. treatment needs: Safety;Mobility;Balance;Weakness;Lower extremity strength (06/20/23899) Equipment Needs: Equipment needs: Rolling walker (06/20/23899) Treatment Plan: Bed mobility training, Transfer training, Gait training, ROM exercises: , Strengthening exercises: , Balance activities, and Educate on safety with all mobility task to decrease fall risk Anticipated Frequency (on eval): (3-6x/wk) (06/20/23899) AM PAC Score with Stairs: 14 * Mirian Gamino LPN - 06/18/2023 8:35 AM EDTAssociated Order(s): WOUND CONSULT IP Images from the original note were not included. Order Date:06/18/2023 Ordering User:XAVIER YAP [[id number]] Att ending Provider:Alicja Mandel MD [[id number]] Authorizing Provider: Power Marshall MD [[id number]] Department:3B IP [facility][[id number]] Order Specific Information Order: WOUND CONSULT IP [CUSTOM: [id number]] Order #: [id number]: 1 Priority: Routine Class: Nursing Unit Reason for Consult: -> Right heel Consulting Provider: -> Lj Provider Released on: 06/18/2023 1:06 AM Priority: Routine Class: Nursing Unit Reason for Consult: -> Right heel Consulting Provider: -> Lj Provider Released on: 06/18/2023 1:06 AM Wound Care consult done for Rt heel. HPI; Information obt from chart, and patient: 63 yo woman with below pmh that includes morbid obesity, stage 3-4 ckd, HTN, dm2, fibromyalgia, hypothyroid, anemia of chronic disease, and chf with preserved EF. She was admitted here 2 weeks ago asshe reports that her chf gradually became worse at [facility]. Four days ago, she wassent to [facility] after successful diuresis and treatment of diabetic foot ulcer. After going [facility], she believes that her weight started to go back up and today she returned here with chest pain, chills, worsening dyspnea. She denies fever, productive cough, or diarrhea. While at [facility], she couldn't participate in rehab due to her foot ulcer and difficulty ambulating. Wound care was asked to see pt by Dr. Marshall for Rt heel wound. s/p Bone biopsy, right heel on 06/06/23. Culture results are positive for Staph aureus. Patient will required PICC line for antibiotics. WB status: NWB to RLE. Pt was to f/u w/ podiatry at [facility]. Pt reports she has not seen her clinical nurse manager since being at [facility]. Called [facility] to verify wound care. Staff reported, daily dressing changes w/ iodoform packing and DSD. Past medical history: Past Medical History: Diagnosis Date Acute kidney injury (HCC) Acute osteomyelitis of right calcaneus (HCC) Asthma DM type 2, goal A1c below 7 HTN, goal below 140/90 Migraine without aura Muscular deconditioning Other specified acquired hypothyroidism Umbilical hernia Past Surgical History: Procedure Laterality Date ANESTHESIA FOR UTERINE ENDOSCOPY BONE BIOPSY, TROCAR/NEEDLE,SUPERFIC Right 06/06/2023 BIOPSY BONE NEEDLE SUPERFICIAL performed by Lynnette Rasmussen DPM at OR [facility] INFORMATION wisdom teeth removed INJECTION CERVICAL/THORACIC 06/26/2014 INJECTION SPINE LUMBAR CERVICAL OR THORACIC performed by Héctor Marvin Cousins, DO at OR [facility] INJECTION CERVICAL/THORACIC 07/10/2014 INJECTION SPINE LUMBAR CERVICAL OR THORACIC performed by Héctor Marvin Cousins, DO at OR [facility] ARTHROSCOPY/REPAIR LIGAMENT 1998 Knee Scope,Aid Ant Cruciate Repair x 2 Family History Problem Relation Age of Onset Diabetes Mother Diabetes Grandfather (Maternal) Diabetes Uncle (Unspecified) maternal Heart Disorder Father aneyurism Heart Disorder Grandmother (Paternal) aneyurism Social History Socioeconomic History Marital status: Spouse name: Not on file Number of children: Not on file Years of education: Not on file Highest education level: Not on file Occupational History Not on file Tobacco Use Smoking status: Never Smokeless tobacco: Never Vaping Use Vaping Use: Never used Substance and Sexual Activity Alcohol use: No Drug use: Never Sexual activity: Not Currently Other Topics Concern Not on file Social History Narrative Not on file Social Determinants of Health Financial Resource Strain: Not on file Food Insecurity: Not on file Transportation Needs: Not on file Physical Activity: Not on file Stress: Not on file Social Connections: Not on file Intimate Partner Violence: Not on file Housing Stability: Not on file Allergies: Review of patient's allergies indicates: Allergen Reactions Clarithromycin Other (Please comment) Heart racing Dextromethorphan Hives Doxylamine Hives Qnbbzezjx-Kvnifwafyt-Tw-Apap Edema face/lips/tongue and Itching Amoxicillin Latex Sulfa Antibiotics Other (Please comment) and Rash malaise Code status: Code Status: Full Code Focused Wound Assessment: VS: BP 117/56 | Pulse 70 | Temp 36.6 C (97.9 F) (Temporal Artery) | Resp 18 | Ht 1.575 m (5' 2") | Wt (!) 149.9 kg (330 lb 8 oz) | LMP 11/22/2002 | SpO2 99% | BMI 60.45 kg/m | BSA 2.56 m General: NAD. Resting in bed w/ HOB elevated. Denied c/o. Morbidly obese. Neuro: AA&O MS: limited ROM d/t habitus. AROM to toes and ankle. Sensation diminished. Vascular: DP pulses non-palpable to BL lower extremities. PT pulses non-palpable to BL extremities.[employer] PRODUCT MANAGER is brisk to all digits of BL lower extremities . Pedal hair is absent to BL lower extremities. Temperature gradient is warm to warm from proximal tibia to foot of BL lower extremities. Integumentary: Skin color, turgor intact. No signs of infection. Hyperkeratotic skin to surroundingskin. Central area of wound is purple, remaining wound base is pink granular. Central area probes to bone. Eduar: 15 06/17/23 2308 Eduar Scale - Daily Sensory Perception 3 Moisture 3 Activity 3 Mobility 2 Nutrition 3 Friction and Shear 1 Eduar Score (auto-calculation) 15 Support surface: standard mattress Routine repositioning past 24 hrs: no Moisture management past 24 hrs: moisture absorbent pads. Nutritional support: High Calorie/High Protein Supplement - Orders Placed This Encounter Procedures Heart Healthy Consistent Carbohydrate Diet : Sodium: 2 gm --- Number of Choices: 4 (60 grams) --- Fluid Restriction (ml): 1500 Review of Labs/Tests: 06/18/23 00:50 MRSA SCREEN, PCR Rpt-pending Rpt: View report in Results Review for more information Interventions/treatments: Pt was seen and examined at bedside. Introduces self and role as wound care nurse. Pt is s/p Rt heel bone bx on 06/06/[address] Rasmussen. She had MRI concerning for early OM. ED consistent w/ mild to mod AOD BLE. Today, dressing removed to RLE. Cleansed surrounding skin w/ soap & water. Puracyn soak done towound bed. Packed central area w/ 1/2 inch iodoform and covered w/ Puracyn WTD dressing. Secured inplace w/ roll gauze and alfonso wrap. Pt should remain NWB to Rt foot. Should consult PT. Pt may need to be placed in a heel off loading shoe. Recommendations: Rt DFU: -Cleanse w/ soap & water daily. Pat dry. -pack central area w/ 1/2 inch iodoform -cover w/ Puracyn WTD, cover w/ gauze and ABD. Secure in place w/ roll gauze and alfonso wrap. -NWB to Rt -PT consult. May need off loading heel shoe if pt is unable to maintain NWB. Thank you for consult. Coordinated care w/ nursing staff. Call or TT w/ any questions or concerns. Mirian Cain LPN,[facility] Licensed Practical Nurse, Wound Care Certified, Ostomy director product management Wound Care Resource Nurse 06/18/23 2:26 PM * Vesta Israel PA-C - 06/18/2023 8:15 AM EDTAssociated Order(s): Cardiology Consult IP Cardiology CONSULT [address] [phone] Name: Alexandria Smith Location: [facility] 3B-3020/D Date: 06/18/2023 Time: 8:15 AM Cardiology Consult IP Consult performed by: Vesta Israel PA-C Consult ordered by: Kali Mooney MD REQUESTING SERVICE: hospitalist REASON FOR CONSULT: chest pain HPI: Alexandria Smith is a 63 year old female with PMHx CKD stage 4, morbid obesity, diabetic foot ulcer, HFpEF, uncontrolled DM, and hx of metabolic encephalopathy that presented to [facility] ED 06/17/2023 for evaluation of chest pain. She was recently admitted to [facility] 06/02-06/12 with abdominal pain and constipation. Noted to be significantly volume overloaded. She was diuresed and discharged on torsemide 60mg BID. She was diagnosed with heart failure this year when she was admitted at [facility] in March 2023. During her inpatient hospitalization required IV Lasix was discharged on Bumex 1 mg daily. She was also noted to be in junctional rhythm during that admission Echocardiogram March 2023 showed EF65-70% moderate left ventricular hypertrophy mild aortic valve stenosis izdr-fe-mcvpfiij mitral valve regurgitation moderate tricuspid regurgitation and right ventricular systolic pressure of 30-40 mm Hg. Discharged to [facility] with 2 mg Bumex daily. Patient continues to have mild right sided chest pressure Reports legs are swollen PAST MEDICAL HISTORY: Past Medical History: Diagnosis Date Acute kidney injury (HCC) Acute osteomyelitis of right calcaneus (HCC) Asthma DM type 2, goal A1c below 7 HTN, goal below 140/90 Migraine without aura Muscular deconditioning Other specified acquired hypothyroidism Umbilical hernia PAST SURGICAL HISTORY: Past Surgical History: Procedure Laterality Date ANESTHESIA FOR UTERINE ENDOSCOPY BONE BIOPSY, TROCAR/NEEDLE,SUPERFIC Right 06/06/2023 BIOPSY BONE NEEDLE SUPERFICIAL performed by Lynnette Rasmussen DPM at OR [facility] INFORMATION wisdom teeth removed INJECTION CERVICAL/THORACIC 06/26/2014 INJECTION SPINE LUMBAR CERVICAL OR THORACIC performed by Héctor Shavonne Cousins, DO at OR [facility] INJECTION CERVICAL/THORACIC 07/10/2014 INJECTION SPINE LUMBAR CERVICAL OR THORACIC performed by Héctor Marvin Cousins, DO at OR [facility] KNEE ARTHROSCOPY/REPAIR LIGAMENT 1998 Knee Scope,Aid Ant Cruciate Repair x 2 FAMILY HISTORY: Family History Problem Relation Age of Onset Diabetes Mother Diabetes Grandfather (Maternal) Diabetes Uncle (Unspecified) maternal Heart Disorder Father aneyurism Heart Disorder Grandmother (Paternal) aneyurism SOCIAL HISTORY: Social History Tobacco Use Smoking status: Never Smokeless tobacco: Never Vaping Use Vaping Use: Never used Substance Use Topics Alcohol use: No Drug use: Never ALLERGIES: Clarithromycin, Dextromethorphan, Doxylamine, Xbizdysyw-qwnvybypij-bb-apap, Amoxicillin, Latex, andSulfa antibiotics ROS: Review of Systems Constitutional: Positive for activity change and fatigue. Negative for appetite change, fever and unexpected weight change. HENT: Negative for tinnitus, trouble swallowing and voice change. Eyes: Negative for visual disturbance. Respiratory: Positive for shortness of breath. Negative for cough. Cardiovascular: Positive for chest pain. Negative for palpitations and leg swelling. Gastrointestinal: Negative for abdominal distention and blood in stool. Genitourinary: Negative for difficulty urinating and hematuria. Musculoskeletal: Negative for myalgias. Skin: Negative for pallor. Neurological: Negative for dizziness, syncope, weakness, light-headedness, numbness and headaches. Psychiatric/Behavioral: Negative for confusion and sleep disturbance. PHYSICAL EXAMINATION: Most Recent Vital Signs: BP: 117 mmHg/56 mmHg (06/18/23610) Pulse: 70 (06/18/23 06) Temp: 36.61 C (06/18/23 0742) Temp Summary: Temp Min: 36.2 C (97.2 F) Max: 36.6 C (97.9 F) SpO2: 99 % (06/18/23 0742) O2 flow rate: 2 L/MIN (06/18/23 0742) Supplemental O2 Delivery: Nasal Cannula (06/18/23 07) Physical Exam Constitutional: General: She is not in acute distress. Appearance: Normal appearance. She is obese. She is not ill-appearing. HENT: Head: Normocephalic. Eyes: Pupils: Pupils are equal, round, and reactive to light. Cardiovascular: Rate and Rhythm: Normal rate and regular rhythm. Pulses: Normal pulses. Heart sounds: Normal heart sounds. No murmur heard. No friction rub. No gallop. Pulmonary: Effort: Pulmonary effort is normal. Breath sounds: Normal breath sounds. No wheezing, rhonchi or rales. Abdominal: General: Bowel sounds are normal. There is no distension. Palpations: Abdomen is soft. Musculoskeletal: General: Normal range of motion. Right lower leg: Edema present. Left lower leg: Edema present. Skin: General: Skin is warm and dry. Coloration: Skin is not pale. Neurological: General: No focal deficit present. Mental Status: She is alert and oriented to person, place, and time. Psychiatric: Mood and Affect: Mood normal. Judgment: Judgment normal. LABS: Labs reviewed as indicated below: IMAGING: ECHO 06/04/2023 The qualitative LV ejection fraction is 55-59% (normal). The right ventricular cavity is mildly dilated. The right ventricular systolic function is normal. Mild mitral stenosis is present. Mild mitral regurgitation is present. Mild tricuspid regurgitation is present. Moderate pulmonary hypertension is present. ECHO 03/2023 EF 65-70% moderate left ventricular hypertrophy mild aortic valve stenosis mhxe-cf-elsnrmtb mitral valve regurgitation moderate tricuspid regurgitation and right ventricular systolic pressure of 30-40 mm Hg IMPRESSION and PLAN: Chest pain Acute on Chronic HFpEF Mild MR Mild TR Mild MS Moderate Pulmonary HTN Junctional Rhythm Morbid Obesity CKD Elevated Troponin secondary to Demand Ischemia Anemia -ACS ruled out. Troponin mildly elevated, EKG without acute changes -Patient appears volume overloaded; however exam is limited by body habitus -Nuclear stress test ordered to rule out ischemia -Continue diuresis with IV lasix 80mg BID -Please document accurate I&Os -Monitor and replace electrolytes as needed. (Recommend K > 4.0 & Mag > 2.0) -Please record daily weights -2L fluid restriction -2 gm sodium restriction -Please apply compression stockings or alfonso wraps first thing in the morning and remove at night. Repeat daily. -Encourage patient to elevate lower extremities throughout the day. Vesta Israel PA-C Patient care discussed and coordinated with Dr. Conway. Please refer to Dr. Conway's notes for further recommendations. I spent a total of 35 minutes on the date of service in preparation, delivery and documentation of the care provided to Alexandria Smith excluding any time spent in the performance of separately billed services. Associated attestation - Nan Conway MD - 06/18/2023 10:22 PM EDT I have reviewed the advanced practitioner's documentation on the date of service referenced in note, and I agree with, and take responsibility for the plan of care. I spent a total of 10 minutes coordinating, documenting, and providing care for this patient excluding time spent in the performance of separately billed services or time spent by another provider/QHP. documented in this encounter Nursing Notes * Zoraida Springer RN - 06/25/2023 1:03 PM EDT 0805 Pt A&Ox4, VS within pt's NL, denies pain at this time. Asmt, morning med pass complete. Call villeda within reach. 1315 Report called and given to Daniela Engel RN. * Zoraida Springer RN - 06/24/2023 10:36 AM EDT 0825 Pt A&Ox4, VS within pt's NL, denies pain at this time. Asmt, morning med pass complete. Call villeda within reach. 1730 Wound care complete per note in kardex. 1915 Report given to Quyen Mccauley RN. * Zoraida Springer RN - 06/22/2023 1:28 PM EDT 0915 Pt A&Ox4, VS within pt's NL, denies pain at this time. Asmt, complete, morning med pass tanner completed by student nurse. Call villeda within reach. 1545 Report given to Cristel Quiñonez, RN. * Mirian Gamino LPN - 06/21/2023 11:52 AM EDT Pt was seen for f/u wound care to Rt heel. Pt is AA&O. Sitting up in recliner. Continues to c/onausea. Stated she is planning on going home. Discussed doing ADLs and showing initiative to do it herself. Dressing removed to Rt LLE. Cleansed leg and foot w/ soap & water. Packed w/ 1/2 in iodoform and Puracyn WTD. Secured in place w/ roll gauze and alfonso wraps. Pt tolerated well. Call or TT w/ any questions or concerns. Mirian Cain LPN,[facility] Licensed Practical Nurse, Wound Care Certified, Ostomy director product management Wound Care Resource Nurse 06/21/23 11:59 AM * Quyen Mccauley RN - 06/19/2023 4:32 PM EDT 0730 - Pt reports a sore throat, dry cough and congestion. States she feels like she is getting a cold. Dr. Contreras made aware. 1150 - Pt returned from nuclear stress test and assisted from stretcher to recliner x2 assist with walker. Pt appears pale. Reports nausea and anxiety. States she "could not tolerate" the stress testand "does not want to go back for the second part tomorrow." States she "couldn't breathe when she had to lay flat." Denies CP. Pt given prn zofran and hydroxyzine. Pt also requesting her albuterol inhaler. Respiratory therapist made aware. 1630 - Pt's right pointer, pinky, and middle finger red, tender, and swollen. Appears infected. Pt reports seeing pus from her finger earlier in the day. Dr. Mishra made aware. * Oziel Ceron RN - 06/17/2023 11:34 PM EDT VIRTUAL RN [address] [id number] Name: Alexandria Smith Location: [facility] 3B-3020/D Date: 06/17/2023 Time: 11:34 PM I completed the Admission Navigator. The patient was in the hospital. I was not in a hospital or clinic location. After connecting through [employer], the patient was identified by name and date of and / or wristband checked. Patient (or authorized legal loan servicing representative) was then informed that this was a Virtual Nurse visit and was being conducted confidentially over secure lines. I used a headset and other methods to ensure confidentiality for the patient. Patient acknowledged consent and understanding of privacy and security of the Virtual Nurse visit. I presented the opportunity for the patient or authorized legal loan servicing representative to ask any questions regarding the visit today. The patient or authorized legal loan servicing representative agreed to participate. * Xavier Yap RN - 06/17/2023 11:00 PM EDT Pt arrived to the floor via stretcher. Pt stood and pivoted into bed. Pt alert and oriented x4. Pt answering admission questions appropriately. Pt oriented to the floor and call villeda use. Call villeda within reach. Dual Licensed Skin Assessment completed by Xavier Jules RN and Connie Larios RN The patient is/has a N/A Skin Breakdown (includes non blanchable erythema): Yes. Wound Type: Suspected pressure injury at bony prominence, location Right heel pressure sore/diabetic ulcer 6.5cm X 6.5cm. Scattered bruises across abdomen. Groin taniya/excoriated. Wound Ostomy Nurse Notified: Yes - notified via wound care protocol Nursing interventions: Right heal cleansed. Xeroform, telfa, ABD, and wrapped with kerlix. Groin cleansed and moisture barrier cream applied. documented in this encounter ED Notes * Alicja Mandel MD - 06/17/2023 6:06 PM EDTAssociated Order(s): ECG Interpret HISTORY OF PRESENT ILLNESS Alexandria Smith is a 63 year old female who presents to the ED for evaluation of Chest Pain. The patientwas seen at 06/17/23 1805. Pressure and pain in her central chest and down her left arm, started a couple of hours ago. Intermittent at 1st, now steady. She received 3 nitroglycerin prior to arrival.The pain is currently 7/10 in severity. Nausea, some shortness of breath but she also feels anxious. Swelling in her legs and feet. Recent admission for congestive heart failure when she had similar chest pain. The patient wears oxygen continuously at baseline. Per review of EMR, the patient is currently on cefazolin 2 g IV twice daily for osteomyelitis of the right heel Review of Systems Constitutional: Negative for fever. HENT: Positive for congestion and sore throat. Negative for ear pain and rhinorrhea. Respiratory: Positive for shortness of breath. Negative for cough. Cardiovascular: Positive for chest pain and leg swelling. Gastrointestinal: Positive for nausea. Negative for abdominal pain, constipation, diarrhea and vomiting. Genitourinary: Negative for dysuria, frequency and hematuria. Musculoskeletal: Positive for myalgias. Negative for back pain. Skin: Negative for rash. Neurological: Positive for dizziness. Negative for weakness, light-headedness and headaches. Psychiatric/Behavioral: The patient is nervous/anxious (Since discharge to nursing facility from recent hospital stay). All other systems reviewed and are negative. The patient's allergies, past history, and medications were reviewed. PHYSICAL EXAM Initial Vitals (see all): BP 202/92 | Pulse 76 | Resp 22 | Temp 97.5 | O2 100 %, Nasal Cannula | Weight 149.91 kg | Height 157.5 cm | BMI 60.45 kg/m2 Initial Pain Assessment (see all): 6 (severe pain)/10, location: chest ([facility] Adult Scale 0-10) Physical Exam Vitals and nursing note reviewed. Constitutional: General: She is in acute distress (Moderate. Somewhat anxious, moving her legs frequently). Appearance: She is obese. HENT: Head: Normocephalic and atraumatic. Mouth/Throat: Mouth: Mucous membranes are moist. Eyes: Comments: No definite conjunctival pallor Cardiovascular: Rate and Rhythm: Normal rate and regular rhythm. Heart sounds: No murmur heard. No gallop. Pulmonary: Effort: Pulmonary effort is normal. No respiratory distress. Breath sounds: Examination of the right-lower field reveals rhonchi. Examination of the left-lower field reveals rhonchi. Rhonchi present. Abdominal: General: Bowel sounds are normal. There is no distension. Palpations: Abdomen is soft. Tenderness: There is abdominal tenderness in the left upper quadrant. There is no guarding or rebound. Musculoskeletal: General: No swelling, tenderness or deformity. Normal range of motion. Cervical back: Normal range of motion and neck supple. No muscular tenderness. Right lower le+ Edema (Brawny) present. Left lower le+ Edema (Brawny) present. Lymphadenopathy: Cervical: No cervical adenopathy. Skin: General: Skin is warm and dry. Coloration: Skin is pale. Skin is not cyanotic. Findings: Ecchymosis (Left forearm) present. No rash. Nails: There is no clubbing. Neurological: General: No focal deficit present. Mental Status: She is alert and oriented to person, place, and time. GCS: GCS eye subscore is 4. GCS verbal subscore is 5. GCS motor subscore is 6. Psychiatric: Mood and Affect: Mood is anxious. Speech: Speech normal. Behavior: Behavior normal. Behavior is cooperative. PROCEDURES AND TREATMENTS ED Orders | ED Results ECG Interpret Date/Time: 06/17/2023 6:06 PM Performed by: Alicja Mandel MD Authorized by: Alicja Mandel MD Previous ECG: Previous ECG: Compared to current Comments: Done at 17:49 shows significant baseline artifact. Appears to be normal sinus rhythm, rate 76. Right bundle branch block. Inferior infarct. Left axis deviation. Nonspecific diffuse T-wave flattening. Poor R-wave progression. Compared to prior EKG of 06/03/2023 done at 05:14, junctional rhythm doesnot appear evident at this time MEDICAL DECISION MAKING Nursing notes and vital signs were reviewed. ED consults were placed. ED Course as of 06/18/23 0018 Sun Jun 17, 2023 190 Hypo magnesemia [] 1903 Stable alkaline phosphatase and albumin [] 190 Stable anemia [] 190 One view chest x-ray: Suspicious for congestive heart failure. Somewhat similar to 06/06/2023.ED physician interpretation [] 1945 Elevated troponin but stable compared to 2 weeks ago. Repeat troponin ordered [] 1957 Elevated pro BNP similar to prior [] 2005 Reassessment: The patient says she is feeling better. Patient says the pain is now 5 or 6/10 in severity. Available results and plan for disposition discussed with patient [] 2013 Repeat troponin stable [] ED Course User Index [] Alicja Mandel MD Differential Diagnoses Based on my history, physical exam, and evaluation, the differential includes, but is not limited, to the following diagnoses: Myocardial ischemia/unstable angina, congestive heart failure, doubt pulmonary embolism. Reflux. Amount and/or Complexity of Data Reviewed Labs: ordered. Radiology: ordered. ECG/medicine tests: ordered and independent interpretation performed. Risk Prescription drug management. Decision regarding hospitalization. Clinical Impressions Chest pain Pulmonary infiltrate present on computed tomography - Bilateral Acute on chronic congestive heart failure, unspecified heart failure type (HCC) Disposition Admitted. I discussed the management of this patient with the admitting provider and I made a decision to admit the patient. Admission Order Ordered Status . 06/17/232057 Admit for Inpatient Services (incl ZPO) ONCE Completed Alicja Mandel This chart was completed in part utilizing [employer] Speech Voice Recognition Software. Grammatical errors, random word insertions, prounoun errors, and incomplete sentences are an occasional consequence of this system due to software limitations, ambient noise, and hardware issues. Any formal questions or concerns about the content, text, or information contained within the body of this dictation should be directly addressed to the provider for clarification. Alicja Mandel MD 06/18/2023 12:18 AM * Ajit Littlejohn, RN - 06/17/2023 5:56 PM EDT Pt arrives via [facility] from [facility] for evaluation of chest pain. Per EMS, pt's pain started at 1630. Pt was given 3 SL nitro by nursing staff with no relief of pain. Pt chronically wears 3L O2, O2 was increased to 4L and pt states that the pain improved. Pt given 324 mg ASA en route. documented in this encounter Miscellaneous Notes * Ancillary Progress Note - Janis Paul, Dials Supervisor - 06/25/2023 1:08 PM EDT CARE MANAGEMENT - ADULT DISCHARGE NOTE [facility] [address] Name: Alexandria Smith Location: [facility] 3B-3011/W Date: 06/25/2023 Time: 1:14 PM The following coordination of care and discharge plan has been coordinated with the care team, patient, family and/or caregiver according to the patients needs and preferences. Discharge Discharge Second Notice Important Message from Medicare delivered: Yes (06/25/23 1300) Date Delivered: 06/23/23 (06/25/23 1300) Was Caregiver/Family/Facility contacted regarding discharge: Yes (06/25/23 1300) Discharge Transportation: Wheelchair Van (06/25/23 1300) Date of scheduled discharge transportation: 06/25/23 (06/25/23 1300) Patient declined post-hospital transition of care recommendation: N/A (06/25/23 1300) Final Discharge Plan (Complete only at time of Discharge): SNF (06/25/23 1300) Destination - Discharged on 06/25/2023 Admission date: 06/17/2023 - Discharge disposition: IP Rehab Service Provider Selected Services Address Phone Fax Patient Preferred Last Updated [facility] [address] [place] [phone] -- Janis Paul, Dials Supervisor 06/25/2023 1314 Narrative: Pt discharged to [facility] via [facility] w/c van. * Ancillary Progress Note - Maribel Max COTA - 06/25/2023 10:08 AM EDT PROGRESS NOTE - Occupational Therapy [facility] [address] Name: Alexandria Smith Location: [facility] 3B-3011/W Date: 06/25/2023 Time: 1008 AM Alexandria Smith is a 63 year old female. Patient Status: Inpatient Insurance: Payor: [employer] [place]ANT[place] Plan: [employer] MEDIC[employer]VANTAGE O Product Type: *No Product type* Patient Seen: at bedside, nursing cleared patient for therapy Patient Identified By: Name, ID Band and Date Diagnosis: CHF, weakness, fluid overload, decreased endurance (06/25/23 100) Status of treatment: Treatment completed (06/25/231007) Orders: OT evaluation and treatment (06/25/23 100) Weight Bearing Status: Weight bearing as tolerated;RUE (with heel offloading shoe) (06/25/23 100) Precautions: Alarms;Falls;Oxygen;Safety;Other-Describe (R heel offloading shoe) (06/25/23 100) Total Treatment Time: 55 (06/25/23 100) Subjective: pt was pleasant and cooperative throughout tx. Pain: Patient has complaints of pain. Pain located in R shoulder with movement. She reported pain was a 7-8/10. She reported this has been ongoing since she experienced a fall at [facility]. RN aware. Observations Consciousness: Alert (06/25/23 100) Orientation: Oriented times 4 (06/25/23 100) Cognitive Limitations: (none noted on OT eval) (06/20/23 1325) Psychosocial: Patient can communicate basic needs;Patient can converse in a social setting (06/25/231007) Visual Deficits: (glasses) (06/20/231324) Sitting posture: Forward head;Rounded shoulders (06/25/231007) Standing posture: Forward head;Rounded shoulders (06/25/231007) Safety awareness: The Patient verbalizes insight of current deficits.;The Patient demonstrates carryover of insight during functional tasks.;The Patient can communicate basic needs.;Needs cueing supervision. (06/25/231007) Other Findings Light touch sensation: RUE;LUE;Intact (06/20/231324) Coordination: LUE;RUE;Gross motor;Fine motor;Intact (06/20/231324) Current Functional Status: Activities of Daily Living: Self Care Able to provide self care: Yes (06/20/231324) Feeding: Independent (06/20/231324) Grooming: Supervision (Please comment) (06/25/231007) Toileting: Maximal Assistance (06/25/231007) Dressing Upper Body: Moderate Assistance (06/25/231007) Lower Body: Dependent (06/25/231007) Bathing Upper Body: Supervision (Please comment) (06/25/231007) Lower Body: Dependent (06/25/231007) Functional Ambulation Assistive Device: Rolling walker (06/25/231007) Distance in feet:: 6 (3ft x2) (06/25/231007) Level of Assistance: Contact Guard (06/25/231007) Bed Mobility Supine-Sit: Minimal Assistance (06/25/231007) OT Transfers Sit-Stand: Contact Guard (06/25/231007) Stand-Sit: Contact Guard (06/25/231007) Toilet: Contact Guard (BSC) (06/25/231007) Balance Sit (Static): Good (06/20/231324) Sit (Dynamic): Good (06/20/231324) Stand (Static): Good (06/20/231324) Stand (Dynamic): Good (06/20/231324) Patient Education Education Topic: Role of OT;Plan of care goals (06/20/231324) Review of Precautions: Safety;Fall (06/20/231324) Method of Education: Verbalized to patient (06/20/231324) Education Provided to: Patient (06/20/231324) Response to Education: Receptive and agreeable to education (06/20/231324) Barriers to learning: Medical status (06/20/231324) Alarm Status Patient positioned in: Chair (06/25/231007) With: Pressure pad alarm intact and functioning and call villeda in reach (06/25/231007) Treatment Provided: Therapeutic Activity: 55 minutes Deficits requiring O.T. treatment needs: Balance;Endurance;ADL/self-care;Fine motor coordination;Functional mobility;IADL;Safety;Upper extremity strength;Upper extremity range of motion;Weakness (06/20/231324) Assessment: Pt was agreeable to participating in treatment. OT AMPAC remained the same at 14. Pt required min A supine to sit at EOB. She required CGA sit <> stand and to transfer from EOB to BSC. Some incontinence with standing. Pt was dep for hygiene after urinating. She transferred from BSC to chair where she completed bedside basin bath. She required supervision for grooming. UB bathing/ dressing was completed with mod A-supervision. Pt was dep for doffing L sock, washing LLE, and donning clean sock. Pt was dep for donning R heel offloading shoe and this was worn throughout tx for all transfers/ambulation. No RLE hygiene completed due to bandage. Pt was dep for perianal hygiene requiring CGA for standing balance with RW. She took off oxygen randomly throughout tx reporting she only wanted to wear it when she felt SOB. Post transfer with O2 off on RA, SpO2 read 88% and required only a few seconds to increase to >90%. On 2L O2 via NC SpO2 read >90%. HR ranged from 80's-90's. RN aware of O2 and HR. Pt was left sitting in chair with feet elevated, call villeda in reach, pressure pad on, and bedside table to the L. Plan: Continue treatment as directed by the OT consult. Anticipated Frequency (on eval): 1 to 3 times per week (06/25/231007) Equipment Equipment used in Therapy: Bedside commode;Hospital bed;Rolling walker (06/25/231007) AM-PAC Help From Another Person Eating Meals: None (06/25/231007) Help From Another Person Taking Care of Personal Grooming: A little (06/25/231007) Help From Another Person To Put On/Take Off Upper Body Clothing: A lot (06/25/231007) Help From Another Person To Put On/Take Off Lower Body Clothing: Total (06/25/231007) Help From Another Person Toileting: A lot (06/25/231007) Help From Another Person Bathing: A lot (06/25/231007) OT AM-PAC Score: 14 (06/25/231007) OT AM-PAC t-Scale Score: 33.39 (06/25/231007) HLM (Highest Level of Mobility) Goal: Level 4 move to chair/commode (06/25/23 0745) * Ancillary Progress Note - Janis Paul Dials Supervisor - 06/25/2023 8:57 AM EDT CM received a TT from Zhanna Rodriguez , re: approved [facility] authorization for . Authorization #[id number]. Approved 06/25/23-07/07/23 with a NRD 07/09/23. Follow up with Jane. . . 0908- CM contacted Kiana from re: discharge today. Kiana stating that is able to accept pt today. 1116- CM spoke with pt re: discharge planning and discharge to . Pt in agreement and will need togo via w/c van. Pt is aware that this would be a private pay cost. * Ancillary Progress Note - Maribel Max COTA - 06/25/2023 8:18 AM EDT Attempted to see pt at 0818, pt declined wanting to wait until after breakfast to participate. Treatment will be attempted at a later time or date dependent on schedule, pt tolerance, and pt medical status. * Care Plan - Quyen Mccauley RN - 06/25/2023 5:24 AM EDT Clinical Goal(s): pt will remain free of falls this shift (06/24/232130) Possible barriers to meeting goal(s)/advancing plan of care: hospitalization Stability of the patient: Moderately stable - low risk of patient condition declining or worsening Summary regarding today's goal(s): Met: pt remained free of falls this shift Recommendations: implement fall prevention strategies; call villeda in reach * Care Plan - Quyen Mccauley RN - 06/24/2023 5:28 AM EDT Clinical Goal(s): pt will be compliant with fluid restriction this shift (06/23/232009) Possible barriers to meeting goal(s)/advancing plan of care: disease process Stability of the patient: Moderately stable - low risk of patient condition declining or worsening Summary regarding today's goal(s): Met: pt compliant with fluid restriction this shift Recommendations: continue with current plan of care * Care Plan - Ayana Patterson RN - 06/23/2023 6:09 PM EDT Clinical Goal(s): Patient will have adequate urine output with IV lasix this shift (06/23/23 0721) Possible barriers to meeting goal(s)/advancing plan of care: Acuity of illness Stability of the patient: Moderately stable - low risk of patient condition declining or worsening Summary regarding today's goal(s): Met: Patient had adequate urine output with IV Lasix this shift Recommendations: accurate I&Os, standing weights, fluid restriction * Care Plan - Isa Marmolejo RN - 06/23/2023 6:30 AM EDT Clinical Goal(s): Pt will have adequate urine output following IV Lasix this shift. (06/22/23 2300) Possible barriers to meeting goal(s)/advancing plan of care: acuity of illness, incontinence, CHF Stability of the patient: Moderately stable - low risk of patient condition declining or worsening Summary regarding today's goal(s): Met: Pt had large output this shift. Recommendations: Continue with current treatment plan. * Care Plan - Alena Powell RN - 06/22/2023 6:07 PM EDT Clinical Goal(s): Pt will have adequate hourly urine OP throughout this shift (06/22/23 0700) Possible barriers to meeting goal(s)/advancing plan of care: admitting diagnosis Stability of the patient: Moderately stable - low risk of patient condition declining or worsening Summary regarding today's goal(s): Met: Pt had adequate urine output this shift. Recommendations: continue plan of care * Ancillary Progress Note - Janis Paul, Dials Supervisor - 06/22/2023 12:05 PM EDT CARE MANAGEMENT - ADULT TRANSITION NOTE [facility] [address] Name: Alexandria Smith Location: [facility] 3B-3011/W Date: 06/22/2023 Time: 12:54 PM Risk Stratification Risk Stratification Psycho Social / Medical Concerns Identified: Adjustment to illness/injury;Multiple Comorbidities;Cognitive/Functional limitations (06/18/231413) Accessed Neighborly to connect patients to social care resources: No (06/18/231413) OBRA or OPTIONS needed for placement: No (06/18/231413) Readmission Risk Score: 28.89 (06/22/23 1201) AM-PAC Score With Stairs : 14 (06/22/23 1030) Caregiver Information Patient Contacts Name Relation Home Work Mobile ALEISHA DOW Other - (no specific identity) [phone] Jane Pineda Sibling [phone] Thao Hussein Friend [phone] Transition of Care Checklist Narrative: Pt reviewed in IDT meeting. Pt accepted to [facility]. Pt insurance authorization submitted to . Pt continues to be diuresed. CM spoke with pt to provide an update on [facility] being able to accept pt back and insurance authorization being submitted. Pt in agreement with discharge plan. CM contacted Kiana from re: admission to . Per Kiana, pt can discharge to over the weekend if the authorization comes back. Anticipated Transportation at Discharge: medical Patient/Family Expectations: SNF Transition Planning Additional Considerations: Care Management will continue to monitor and assist with discharge planning needs * Ancillary Progress Note - Tim El PTA - 06/22/2023 10:30 AM EDT PROGRESS NOTE - Physical Therapy [facility] [address] Name: Alexandria Smith Location: [facility] 3B-3011/W Date: 06/22/2023 Time: 1030 Alexandria Smith is a/an 63 year old female. Patient Status: Inpatient Insurance: Payor: T MEDICARE ADVANTAGE Plan: AET MEDICARE ADVANTAGE HMO Product Type: *No Product type* Patient Seen: at bedside, nursing cleared patient for therapy Patient Identified By: Name, ID Band and Date Diagnosis: weakness, gait abnormality (06/20/23 09) Status of treatment: Treatment completed (06/22/23 1030) Orders: PT evaluation and treatment (06/20/23899) Weight Bearing Status: Weight bearing as tolerated (w/ heel off loading shoe) (06/22/23 103) Precautions: Alarms;Falls;Safety (06/22/23 103) Total Treatment Time--free text: 70 mins (06/22/23 103) Subjective: "Im just so tired, and I keep coughing" Pain: No complaints of pain P.T. Bed Mobility Supine-Sit: Moderate Assistance (06/20/23899) Transfers Sit-Stand: Contact Guard (06/20/23899) Stand-Sit: Contact Guard (06/20/23899) W/C-Bed/Mat: Contact Guard (06/20/23899) Ambulation: Declined to ambulate at this time. Balance Sit (Static): Good (06/20/23899) Sit (Dynamic): Good (06/20/23899) Stand (Static): Fair (06/20/23899) Stand (Dynamic): Fair (06/20/23899) Patient and or Family Goal(s): to get well and to return home Topic of Education: Weight bearing restrictions, Safety with mobility, Use of assistive device, andFall prevention Method of Education: Demonstrated the above task to pt: verbalized understanding and or agreement of this information and demonstrated the exercise and or task Treatment Provided: Therapeutic Exercises: 70 minutes Alarm Status Patient positioned in: Chair (06/22/231029) With: Pressure pad alarm intact and functioning and call villeda in reach (06/22/231029) Patient Education Review of Precautions: Safety;Weight Bearing Status;Fall (06/22/231029) Review of Exercises: Pt Demonstrated Exercise;Verbal Exercises Provided (06/22/231029) Safety Awareness: Patient verbalizes insight of current deficits;Patient demonstrates carryover of insight during functional tasks;Patient can communicate basic needs (06/22/231029) Preferred learning method: Combination (06/20/23899) Barriers to learning: Medical Status (06/20/23899) Method of Education: Verbalized to patient;Demonstrated to patient (06/20/23899) Assessment: Pt tolerated tx fair with no reported pain or SOB post tx session. Pt did report feeling fatigued post tx session. Pt performed seated exercises in the chair to increase strength and ROM to improve functional mobility. Pt required many rest breaks between exercises and sets. Pt declinedGT due to fatigue and wanting to save her energy to pee on the BSC. Pt left sitting up in the in the chair with feet elevated and bedside table in front of pt. No needs post tx session. Pt instructedto not get up without assistance. Deficits requiring P.T. treatment needs: Safety;Mobility;Balance;Weakness;Lower extremity strength (06/20/23 09) Equipment needs: Rolling walker (06/20/23 09) Plan: Continue with current treatment plan established on evaluation. AM PAC Score with Stairs: 14 * Care Plan - Asia Frost RN - 06/22/2023 5:14 AM EDT Clinical Goal(s): Pt will have urine output >1L this shift. (06/21/238) Possible barriers to meeting goal(s)/advancing plan of care: noncompliant with fluid restriction Stability of the patient: Moderately stable - low risk of patient condition declining or worsening Summary regarding today's goal(s): Met: Pt has urinated 1400mL this shift/ Recommendations: continue to monitor urine output * Care Plan - Lina Fofana RN - 06/21/2023 5:46 PM EDT Clinical Goal(s): Pt will rate pain <6 this shift. (06/21/23 0700) Possible barriers to meeting goal(s)/advancing plan of care: Acuity of illness Stability of the patient: Moderately stable - low risk of patient condition declining or worsening Summary regarding today's goal(s): Met: Patient stated pain control at end of shift Recommendations: Continue plan of care * Ancillary Progress Note - Janis Paul Dials Supervisor - 06/21/2023 3:19 PM EDT CARE MANAGEMENT - ADULT TRANSITION NOTE [facility] [address] Name: Alexandria Smith Location: [facility] 3B-3011/W Date: 06/21/2023 Time: 3:19 PM Risk Stratification Risk Stratification Psycho Social / Medical Concerns Identified: Adjustment to illness/injury;Multiple Comorbidities;Cognitive/Functional limitations (06/18/231413) Accessed Neighborly to connect patients to social care resources: No (06/18/231413) OBRA or OPTIONS needed for placement: No (06/18/231413) Readmission Risk Score: 28.79 (06/21/23 1200) AM-PAC Score With Stairs : 14 (06/21/23 1012) Caregiver Information Patient Contacts Name Relation Home Work Mobile ALEISHA DOW Other - (no specific identity) [phone] Jane Pineda Sibling [phone] Thao Hussein Friend [phone] Transition of Care Checklist Narrative: Pt reviewed in IDT meeting. Pt will remain at [facility] at this time for medical treatment. Pthas been accepted by SNF for short-term rehab. Submitted request for SNF auth to . Anticipated Transportation at Discharge: medical Patient/Family Expectations: SNF Transition Planning Additional Considerations: Care Management will continue to monitor and assist with discharge planning needs * Ancillary Progress Note - Marti Lal, PT - 06/21/2023 3:18 PM EDT To bedside to attempt physical therapy treatment session. Pt declined to participate second to 8/10abdominal pain. Nursing informed. Treatment will be attempted at a later time or date dependent on schedule, pt tolerance, and pt medical status. * Diagnostic Clarification - Jose Martin Wolff MD - 06/21/2023 2:39 PM EDT The patient has been diagnosed with chronic hypoxic and hypercapnic respiratory failure The patient has a diagnosis of Type II DM. - Acute on Chronic diastolic CHF * Ancillary Progress Note - Olya Tolentino, PT - 06/21/2023 9:30 AM EDT Attempted PT tx at 0930. Patient completing ADLs with nursing staff at this time. Will attempt PT tx again later today or tomorrow based on schedule and patients tolerance. * Care Plan - Asia Frost RN - 06/21/2023 5:30 AM EDT Clinical Goal(s): Pt will rate pain <6 this shift. (06/21/23 0700) Possible barriers to meeting goal(s)/advancing plan of care: wounds to legs Stability of the patient: Moderately stable - low risk of patient condition declining or worsening Summary regarding today's goal(s): Met: Pt has rated pain <6 this shift., Recommendations: continue to monitor pain level * Ancillary Progress Note - Janis Paul Dials Supervisor - 06/20/2023 3:03 PM EDT Request for SNF authorization submitted to . * Ancillary Progress Note - Mireya Harris RDN - 06/20/2023 2:25 PM EDT CLINICAL NUTRITION ADULT RISK ASSESSMENT [facility] [address] Name: Alexandria Smith Location: [facility] 3B-3011/D Date: 06/20/2023 Time: 2:25 PM How patient was identified (select 2): date and Name Alexandria Smith is a 63 year old female being assessed for clinical nutrition risk related to skin breakdown Primary diagnosis: Anasarca Other pertinent information: Patient reports appetite is "so-so" but she has also been dealing withfluid overload, so that could be contributing to her decreased appetite. Patient tells me she was at [facility] prior to admission, and she is worried she is receiving too much sodium in her meals - I encouraged her to talk with the RD if she goes back, or if she is placed somewhere else, advocate for herself to be on a sodium restricted diet. Patient with a diabetes related ulcer on her R foot- she reports she is receiving liquacel at but only likes it in [place] - she is agreeable todiet katie manuel, relayed info to food services. Patient tells me she usually weighs around 288 lbs,but her fluid build up has increased her to 333 lbs; pt is on a diuretic regimen and a fluid restriction. We discussed her diet restrictions and I provided pt with a menu so she can order her own meals. Will add liquacel daily. Anthropometrics Measurements Admission weight (for dietitians): 149.9 kg Height: 157.5 cm (5' 2") (06/17/238) Weight: (!) 151.3 kg (333 lb 8.9 oz) (06/20/23 1325) BMI: 61.26 (06/17/23 1750) Usual Body Weight or EDW for Dialysis Patients: 130.9 kg Diet: 1500 ml Fluid Restriction 4 Choices (60 gm) Consistent Carbohydrate Heart Healthy, 2 gm Sodium Previously followed diet: Low sodium Food Allergies/Intolerances: Arnold's 7 grain bread Oral Nutrition Supplement (ONS): None Pertinent medications/vitamins/minerals/supplements: Lasix, lantus, novolog RISK FACTORS: Adult Energy Intake: No significant decrease Interpretation of Weight Change: Weight gain Change likely secondary to fluid Skin: Right foot diabetes related ulcer NUTRITION RISK CATEGORY: Nutrition Risk Category: Low/Moderate (0-1 factors) Clinical Nutrition Recommendations: Diet: Continue current nutrition plan NUTRITION INTERVENTION/PLAN: Orders: Oral nutrition supplement added Liquacel (1 oz, 100 calories, 16 grams protein, 20 mg phosphorus, 10 mg potassium) daily Will follow and adjust nutritional plan as medical condition requires. Please contact for change(s)in patient condition requiring earlier intervention. Mireya Harris, MS, RDN, LDN Clinical Dietitian [facility] Available via [place] Text [phone] * Ancillary Progress Note - Janis Paul, Dials Supervisor - 06/20/2023 12:33 PM EDT CARE MANAGEMENT - ADULT TRANSITION NOTE [facility] [address] Name: Alexandria Smith Location: [facility] 3B-3011/D Date: 06/20/2023 Time: 12:33 PM Risk Stratification Risk Stratification Psycho Social / Medical Concerns Identified: Adjustment to illness/injury;Multiple Comorbidities;Cognitive/Functional limitations (06/18/231413) Accessed [facility] to connect patients to social care resources: No (06/18/231413) OBRA or OPTIONS needed for placement: No (06/18/231413) Readmission Risk Score: 28.66 (06/20/23 1200) AM-PAC Score With Stairs : 14 (06/20/23 0900) Caregiver Information Patient Contacts Name Relation Home Work Mobile ALEISHA DOW Other - (no specific identity) [phone] Jane Pineda Sibling [phone] Thao Hussein Friend [phone] Transition of Care Checklist Narrative: Pt reviewed in IDT meeting. CHRISTINA is 2-3 days. Pt is being placed on a fluid restriction. CM contacted to confirm that a bed would be available for pt at the end of the week. Kiana from confirmed that there would be a bed available for pt. CM will submit for insurance authorization after PT/OT notes are entered. Anticipated Transportation at Discharge: medical Patient/Family Expectations: SNF Transition Planning Additional Considerations: Care Management will continue to monitor and assist with discharge planning needs * Care Plan - Kajal Tse RN - 06/20/2023 5:11 AM EDT Clinical Goal(s): pt will have no chest pain this shift (06/19/232135) Possible barriers to meeting goal(s)/advancing plan of care: acuity of illness Stability of the patient: Moderately stable - low risk of patient condition declining or worsening Summary regarding today's goal(s): Met: pt remained free from CP. Pt didn't not have any complaints. Recommendations: keep call ronal oconnell reach * Care Plan - Quyen Mccauley, RN - 06/19/2023 5:36 PM EDT Clinical Goal(s): pt will have no episodes of chest pain this shift (06/19/23803) Possible barriers to meeting goal(s)/advancing plan of care: acuity of illness Stability of the patient: Moderately stable - low risk of patient condition declining or worsening Summary regarding today's goal(s): Met: no episodes of chest pain this shift Recommendations: continue with current plan of care * Ancillary Progress Note - Janis Paul Dials Supervisor - 06/19/2023 3:33 PM EDT CARE MANAGEMENT - ADULT TRANSITION NOTE [facility] [address] Name: Alexandria Smith Location: [facility] 3B-3013/D Date: 06/19/2023 Time: 3:33 PM Risk Stratification Risk Stratification Psycho Social / Medical Concerns Identified: Adjustment to illness/injury;Multiple Comorbidities;Cognitive/Functional limitations (06/18/231413) Accessed [facility] to connect patients to social care resources: No (06/18/231413) OBRA or OPTIONS needed for placement: No (06/18/231413) Readmission Risk Score: 35.12 (06/19/23 1201) AM-PAC Score With Stairs : 13 (06/19/23 08) Caregiver Information Patient Contacts Name Relation Home Work Mobile ALEISHA DOW Other - (no specific identity) [phone] Jane Pineda Sibling [phone] Thao Hussein Friend [phone] Transition of Care Checklist Narrative: Pt reviewed in IDT meeting. Pt was accepted by [facility] updated [facility] from [facility] on tentative discharge at the end of the week. A new authorization will need to be obtained for pt to return to . Anticipated Transportation at Discharge: medical Patient/Family Expectations: SNF Transition Planning Additional Considerations: Care Management will continue to monitor and assist with discharge planning needs * Ancillary Progress Note - Deyanira Hannon RN - 06/19/2023 9:31 AM EDT Stress part of nuclear is complete. Pt will return for pictures in 1 hour. Pt may eat drink and have caffeine. * Care Plan - Xavier Yap RN - 06/19/2023 5:21 AM EDT Clinical Goal(s): Pt will remain free from falls this shift. (06/18/23 2300) Possible barriers to meeting goal(s)/advancing plan of care: Acuity of illness Stability of the patient: Moderately stable - low risk of patient condition declining or worsening Summary regarding today's goal(s): Met: Pt remained free from falls this shift. Recommendations: Continue with plan of care. * Care Plan - Quyen Mccauley RN - 06/18/2023 6:16 PM EDT Clinical Goal(s): pt will remain free of falls this shift (06/18/23 0948) Possible barriers to meeting goal(s)/advancing plan of care: R heel wound Stability of the patient: Moderately stable - low risk of patient condition declining or worsening Summary regarding today's goal(s): Met: pt free of falls this shift Recommendations: implement fall prevention strategies * Ancillary Progress Note - Janis Paul Dials Supervisor - 06/18/2023 2:18 PM EDT CARE MANAGEMENT - ADULT INITIAL SCREENING [facility] [place] [facility] [address] [place] [address] Name: Alexandria Smith Location: [facility] 3B-3020/D Date: 06/18/2023 Time: 2:19 PM Discussed patient with the interdisciplinary care team. This Corporate Accounting Manager performed a chart review and met with pt at bedside to complete admission screen and assessed needs for transition planning. The acute care nurse practitioner role and services were explained and emotional support was provided. Chief Complaint: Chest Pain Prior Living Arrangements What was your living situation prior to admission/observation?: Independently;Alone (was at short-term rehab [employer]) (06/18/231413) Living Quarters: Apartment (06/18/231413) Number of steps to enter living quarters:: 3 (06/18/231413) Do you have serious difficulty walking or climbing stairs? (5 years old or older): Yes (06/17/232307) History of falling: Yes (06/18/23948) Prior Level of Functioning Describe the patient's ability prior to admission/observation to perform ADLs: Performs independently (06/18/231413) Requires assistance with: Dressing;Toileting;Bathing;Grooming;Eating (06/17/232307) Describe the patient's mobility status prior to admission: Patient ambulates independently (06/18/231413) Patient uses assistive device: Yes (06/18/231413) If yes, choose:: Walker (06/18/231413) Caregiver Information Patient Contacts Name Relation Home Work Mobile ALEISHA DOW Other - (no specific identity) [phone] Jane Pineda Sibling [phone] Thao Hussein Friend [phone] Pt came to [facility] ED on 06/17/23 from [facility] with c/o chest pain. Pt was admitted with chest pain. Pt has consults with wound and cardiology. Pt is insured by [facility] Medicare. Pt triggered in the workque for AM-PAC being 11 or less and a readmission risk score of 25% or greater. Pt lives alone in a single story home with 3 steps to enter. Pt reports that prior to her last admission she was independent with ADL's and ambulation with a rw. Pt has a rw, rollator, grab bars in the tub, lower bed, shower chair. Pt uses [employer] for transportation. Pt had [facility] for PT/OT/skilled nurse prior to her last admission. Pt came to [facility] from for this admission and pt would like to return upon discharge. CM reached out to Harish Rico from re: bed hold. Pt isn't a bed hold,but will accept back. CM sent Harish a TT letting her know that pt would like to return to upon discharge from [facility]. Risk Stratification/Psychosocial/Care Gaps Risk Stratification Psycho Social / Medical Concerns Identified: Adjustment to illness/injury;Multiple Comorbidities;Cognitive/Functional limitations (06/18/231413) Accessed [facility] to connect patients to social care resources: No (06/18/231413) OBRA or OPTIONS needed for placement: No (06/18/231413) Readmission Risk Score: 34.01 (06/18/23 1201) AM-PAC Score With Stairs : 12 (06/18/23 0948) Prior to Admission Services Services Prior to Admission [employer] Services (Services received within the last 30 days with exception, Psych within last two years): [facility] (06/18/231413) List All Provider/Service Name: Vazquez Anand (06/18/231413) Agency contacted: Yes (06/18/231413) Spoke with - Comment: Kiana Rico (06/18/231413) [facility] Facility Bed Hold Confirmed: No (06/18/231413) [place] [facility] (PDA) Waiver Program: N/A (06/18/231413) [employer] Transportation (Services received within the last 30 days): [facility] (06/18/231413) Outpatient Corporate Accounting Manager: No care steam shovel operating engineer to display Patient/Family Expectations: SNF For further screening information, please refer to the Care Management flow document. * Care Plan - Xavier Yap RN - 06/18/2023 7:39 AM EDT Clinical Goal(s): Pt will remain free from injuries this shift. (06/17/23 2300) Possible barriers to meeting goal(s)/advancing plan of care: Acuity of illness Stability of the patient: Moderately stable - low risk of patient condition declining or worsening Summary regarding today's goal(s): Met: Pt remained free from injuries this shift. Recommendations: Continue with plan of care. documented in this encounter Plan of Treatment Upcoming Encounters Date Type Department Care Team (Late st Contact Info) Description 07/02/2023 1:30 PM EDT Office Visit Cardiology, [place] [address] [place] [address] Krystin Posey CRNP [address], [place] [phone] 08/31/2023 10:20 AM EDT Office Visit Infectious Disease [facility] [address] [place] [address] Ricky Carnes MD [address] [place] [address] Health Maintenance Due Date Last Done Comments Depression Screening 1972 HIV Screening 1975 Diabetic Eye Exam 1978 Diabetic Foot Exam 1978 Hgb 1978 Nephrology Referral 1978 PTH 1978 HPV/Co-Test [...] Additional history exists COVID-19 Vaccine (2 - season) 2022 08/24/2020 Zoster Vaccines (2 of 2) 06/15/2023 04/20/2023 Influenza Vaccine (FLU shot) (Season Ended) 2023 12/18/2017, 10/24/2016, 01/11/2016, Additional history exists Lipid Panel 11/20/2023 11/19/2018, 01/10, 01/14/2001, Additional history exists HbA1c 12/03/2023 06/02/2023, 11/10, 01/22/2018, Additional history exists GFR 12/25/2023 06/25/2023, 06/10, 06/23/2023, Additional history exists TSH 06/14/2024 06/15/2023, 05/11, 11/19/2018, Additional history exists Phosphate 06/24/2024 06/25/2023, 06/10, 06/23/2023, Additional history exists GARDASIL-HPV IMMUNIZATION SERIES Aged [...] Procedure Name Priority Date/Time Associated Diagnosis Comments GLUCOSE METER, POINT OF CARE SUAD 06/25/2023 11:33 AM EDT GLUCOSE METER, POINT OF CARE SUAD 06/25/2023 8:02 AM EDT COMPREHENSIVE METABOLIC PANEL Routine 06/25/2023 6:11 AM EDT PHOSPHORUS Routine 06/25/2023 6:11 AM EDT CBC Routine 06/25/2023 6:11 AM EDT MAGNESIUM Routine 06/25/2023 6:11 AM EDT GLUCOSE METER, POINT OF CARE SUAD 06/24/2023 9:12 PM EDT GLUCOSE METER, POINT OF CARE SUAD 06/24/2023 4:41 PM EDT GLUCOSE METER, POINT OF CARE SUAD 06/24/2023 11:27 AM EDT GLUCOSE METER, POINT OF CARE SUAD 06/24/2023 7:50 AM EDT COMPREHENSIVE METABOLIC PANEL Routine 06/24/2023 4:31 AM EDT PHOSPHORUS Routine 06/24/2023 4:31 AM EDT CBC Routine 06/24/2023 4:31 AM EDT MAGNESIUM Routine 06/24/2023 4:31 AM EDT GLUCOSE METER, POINT OF CARE SUAD 06/23/2023 9:54 PM EDT GLUCOSE METER, POINT OF CARE SUAD 06/23/2023 4:45 PM EDT GLUCOSE METER, POINT OF CARE SUAD 06/23/2023 11:37 AM EDT GLUCOSE METER, POINT OF CARE SUAD 06/23/2023 7:33 AM EDT COMPREHENSIVE METABOLIC PANEL Routine 06/23/2023 3:37 AM EDT PHOSPHORUS Routine 06/23/2023 3:37 AM EDT CBC Routine 06/23/2023 3:37 AM EDT MAGNESIUM Routine 06/23/2023 3:37 AM EDT GLUCOSE METER, POINT OF CARE SUAD 06/22/2023 9:15 PM EDT GLUCOSE METER, POINT OF CARE SUAD 06/22/2023 4:41 PM EDT GLUCOSE METER, POINT OF CARE SUAD 06/22/2023 11:30 AM EDT GLUCOSE METER, POINT OF CARE SUAD 06/22/2023 8:03 AM EDT COMPREHENSIVE METABOLIC PANEL Routine 06/22/2023 5:16 AM EDT PHOSPHORUS Routine 06/22/2023 5:16 AM EDT CBC Routine 06/22/2023 5:16 AM EDT MAGNESIUM Routine 06/22/2023 5:16 AM EDT GLUCOSE METER, POINT OF CARE SUAD 06/21/2023 10:04 PM EDT GLUCOSE METER, POINT OF CARE SUAD 06/21/2023 4:39 PM EDT GLUCOSE METER, POINT OF CARE SUAD 06/21/2023 11:27 AM EDT GLUCOSE METER, POINT OF CARE SUAD 06/21/2023 7:37 AM EDT COMPREHENSIVE METABOLIC PANEL Routine 06/21/2023 3:19 AM EDT PHOSPHORUS Routine 06/21/2023 3:19 AM EDT CBC Routine 06/21/2023 3:19 AM EDT MAGNESIUM Routine 06/21/2023 3:19 AM EDT FERRITIN Add-on 06/21/2023 3:19 AM EDT GLUCOSE METER, POINT OF CARE SUAD 06/20/2023 9:24 PM EDT GLUCOSE METER, POINT OF CARE SUAD 06/20/2023 4:58 PM EDT NM MYOCARDIAL PERFUSION SPECT SINGLE REST OR STRESS Routine 06/20/2023 11:57 AM EDT GLUCOSE METER, POINT OF CARE SUAD 06/20/2023 11:22 AM EDT GLUCOSE METER, POINT OF CARE SUAD 06/20/2023 7:57 AM EDT BASIC METABOLIC PANEL Routine 06/20/2023 5:25 AM EDT MAGNESIUM Routine 06/20/2023 5:25 AM EDT EXTRA LAVENDER TOP Routine 06/20/2023 5: 21 AM EDT EXTRA TUBES Routine 06/20/2023 5:21 AM EDT CBC Add-on 06/20/2023 5:21 AM EDT GLUCOSE METER, POINT OF CARE [facility] 06/19/2023 9:29 PM EDT RESPIRATORY PATHOGEN PANEL, PCR Routine 06/19/2023 8:21 PM EDT GLUCOSE METER, POINT OF CARE SUAD 06/19/2023 4:24 PM EDT GLUCOSE METER, POINT OF CARE SUAD 06/19/2023 11:35 AM EDT NM MYOCARDIAL PERFUSION IMAGING SPECT MULTIPLE STUDIES WITH PHARMACOLOGIC INTERVENTION Routine 06/19/2023 10:12 AM EDT GLUCOSE METER, POINT OF CARE SUAD 06/19/2023 7:20 AM EDT BASIC METABOLIC PANEL Routine 06/19/2023 6:17 AM EDT MAGNESIUM Routine 06/19/2023 6:17 AM EDT GLUCOSE METER, POINT OF CARE SUAD 06/18/2023 9:13 PM EDT GLUCOSE METER, POINT OF CARE SUAD 06/18/2023 5:29 PM EDT GLUCOSE METER, POINT OF CARE SUAD 06/18/2023 12:07 PM EDT URINALYSIS, REFLEX TO CULTURE STAT 06/18/2023 9:38 AM EDT URINALYSIS, REFLEX TO CULTURE (CUP ONLY) STAT 06/18/2023 9:38 AM EDT URINALYSIS, REFLEX TO CULTURE (NOT FOR NEUTROPENIC PATIENTS) STAT 06/18/2023 9:38 AM EDT CULTURE, URINE, QUANTITATIVE Routine 06/18/2023 9:38 AM EDT TROPONIN T, HIGH SENSITIVITY Routine 06/18/2023 3:55 AM EDT BASIC METABOLIC PANEL Routine 06/18/2023 3:55 AM EDT PT INR Routine 06/18/2023 3:55 AM EDT CBC Routine 06/18/2023 3:55 AM EDT MRSA SCREEN, PCR Routine 06/18/2023 12:5 0 AM EDT GLUCOSE METER, POINT OF CARE SUAD 06/18/2023 12:18 AM EDT CULTURE, BLOOD STAT 06/17/2023 8:48 PM EDT EXTRA GREEN TOP WITH GEL Routine 06/17/2023 8:43 PM EDT EXTRA TUBES Routine 06/17/2023 8:43 PM EDT TROPONIN T, HIGH SENSITIVITY Routine 06/17/2023 8:43 PM EDT LACTATE STAT 06/17/2023 8:43 PM EDT CULTURE, BLOOD STAT 06/17/2023 8:43 PM EDT TROPONIN T, HIGH SENSITIVITY STAT 06/17/2023 7:[address] ABD/PELVIS WO IV/ORAL CONTRAST STAT 06/17/2023 7:23 PM EDT RESPIRATORY PATHOGEN PANEL, PCR STAT 06/17/2023 7:06 PM EDT PT INR STAT 06/17/2023 6:58 PM EDT DIFFERENTIAL, AUTOMATED STAT 06/17/2023 6:37 PM EDT TROPONIN T, HIGH SENSITIVITY STAT 06/17/2023 6:37 PM EDT BNP (NT-PROBNP) STAT 06/17/2023 6:37 PM EDT HEPATIC FUNCTION PANEL STAT 6:37 PM EDT CBC STAT 06/17/2023 6:37 PM EDT LIPASE STAT 06/17/2023 6:37 PM EDT AMYLASE STAT 06/17/2023 6:37 PM EDT CBC STAT 06/17/2023 6:37 PM EDT MAGNESIUM STAT 06/17/2023 6:37 PM EDT XR CHEST 1 VIEW STAT 06/17/2023 6:34 PM EDT EXTRA CARTER TOP Routine 06/17/2023 6:30 PM EDT EXTRA TUBES Routine 06/17/2023 6:30 PM EDT ECG INTERPRET Routine 06/17/2023 6:06 PM EDT HC ECG TRACING ONLY STAT 06/17/2023 5 :49 PM EDT Chest pain documented in this encounter Results * (ABNORMAL) GLUCOSE METER, POINT OF CARE (06/25/2023 11:33 AM EDT) Glucose Meter 180(H) 70 - 120 mg/dL 06/25/2023 11:36 AM EDT [facility] Blood Whole blood specimen / Unknown 06/25/2023 11:33 AM EDT 06/25/2023 11:36 AM EDT Ayana Summers MD LAB POINT OF CARE TEST DOCKED DEVICE UNSOLICITED RESULTS Performing Organization Address City/[facility]/ZIP Co de Phone Number [facility] [address] [place] [address] * (ABNORMAL) GLUCOSE METER, POINT OF CARE (06/25/2023 8:02 AM EDT) Glucose Meter 143(H) 70 - 120 mg/dL 06/25/2023 8:39 AM EDT [facility] Blood Whole blood specimen / Unknown 06/25/2023 8:02 AM EDT 06/25/2023 8:39 AM EDT Ayana Summers MD LAB POINT OF CARE TEST DOCKED DEVICE UNSOLICITED RESULTS Performing Organization Address City/[facility] Co de Phone Number [facility] [address] [place] [address] * PHOSPHORUS (06/25/2023 6:11 AM EDT) Phosphorus 3.3 2.5 - 4.8 mg/dL 06/25/2023 6:43 AM EDT LABORATORY [facility] Blood Venous blood specimen / Unknown Venipuncture / Unknown 06/25/2023 6:11 AM EDT 06/25/2023 6:20 AM EDT Diamond Kaur PA-C LAB BLOOD ORDER MICHELLE Performing Organization Address City/[facility]/ZIP Co de Phone Number LABORATORY [address] [phone] * MAGNESIUM (06/25/2023 6:11 AM EDT) Magnesium 1.7 1.5 - 2.6 mg/dL 06/25/2023 6:43 AM EDT LABORATORY [facility] Blood Venous blood specimen / Unknown Venipuncture / Unknown 06/25/2023 6:11 AM EDT 06/25/2023 6:20 AM EDT Diamond Kaur PA-C LAB BLOOD ORDER MICHELLE Performing Organization Address City/[facility] Co de Phone Number LABORATORY [address] [address] * (ABNORMAL) CBC (06/25/2023 6:11 AM EDT) WBC 9.34 4.00 - 10.80 K/uL 06/25/2023 6:32 AM EDT LABORATORY [facility] RBC 2.94 3.85 - 5.15 M/uL 06/25/2023 6:32 AM EDT LABORATORY GL HGB 8.3(L) 12.0 - 15.3 g/dL 06/25/2023 6:32 AM EDT LABORATORY [facility] HCT 26.4(L) 36.0 - 45.2 % 06/25/2023 6:32 AM EDT LABORATORY GL MCV 89.8 81.5 - 97.5 fL 06/25/2023 6:32 AM EDT LABORATORY GL MCH 28.2 27.0 - 34.0 pg 06/25/2023 6:32 AM EDT LABORATORY GL MCHC 31.4 32.0 - 36.0 g/dL 06/25/2023 6:32 AM EDT LABORATORY [facility] RDW 17.9 11.5 - 15.5 % 06/25/2023 6:32 AM EDT LABORATORY [facility] PLT 302 140 - 400 K/uL 06/25/2023 6:32 AM EDT LABORATORY [facility] MPV 11.3 6.6 - 11.1 fL 06/25/2023 6:32 AM EDT LABORATORY [facility] nRBCs 0 <=0 /100 WBCs 06/25/2023 6:32 AM EDT LABORATORY [facility] Blood Venous blood specimen / Unknown Venipuncture / Unknown 06/25/2023 6:11 AM EDT 06/25/2023 6:20 AM EDT Diamond Kaur PA-C LAB BLOOD ORDER MICHELLE LABORATORY [facility] [address] [place] [address] * (ABNORMAL) COMPREHENSIVE METABOLIC PANEL (06/25/2023 6:11 AM EDT) BUN 35(H) 6 - 20 mg/dL 06/25/2023 6:43 AM EDT LABORATORY GL Creatinine 1.8(H) 0.5 - 1.0 mg/dL 06/25/2023 6:43 AM EDT LABORATORY GL Estimated Glomerular Filtration Rate 31(L) >=60 mL/min 06/25/2023 6:43 AM EDT LABORATORY [facility] Comment:eGFR is calculated b ased on the CKD-EPI 2020 equation Sodium 133(L) 135 - 146 mmol/L 06/25/2023 6:43 AM EDT LABORATORY GL Potassium 3.6 3.5 - 5.1 mmol/L 06/25/2023 6:43 AM EDT LABORATORY GL Chloride 95(L) 98 - 107 mmol/L 06/25/2023 6:43 AM EDT LABORATORY [facility] CO2 25 22 - 32 mmol/L 06/25/2023 6:43 AM EDT LABORATORY GL Anion Gap 13 7 - 15 mmol/L 06/25/2023 6:43 AM EDT LABORATORY GL Glucose 134(H) 70 - 120 mg/dL 06/25/2023 6:43 AM EDT LABORATORY [facility] Albumin 2.1(L) 3.8 - 5.0 g/dL 06/25/2023 6:43 AM EDT LABORATORY [facility] AST 26 10 - 35 U/L 06/25/2023 6:43 AM EDT LABORATORY [facility] Alkaline Phosphatase 207(H) 35 - 130 U/L 06/25/2023 6:43 AM EDT LABORATORY [facility] Bilirubin, Total <0.2 <=1.2 mg/dL 06/25/2023 6:43 AM EDT LABORATORY [facility] Calcium 8.7 8.4 - 10.2 mg/dL 06/25/2023 6:43 AM EDT LABORATORY [facility] Protein 6.1 6.0 - 8.3 g/dL 06/25/2023 6:43 AM EDT LABORATORY [facility] ALT <5(L) 10 - 35 U/L 06/25/2023 6:43 AM EDT LAB[facility]ATORY [facility] Blood Venous blood specimen / Unknown Venipuncture / Unknown 06/25/2023 6:11 AM EDT 06/25/2023 6:20 AM EDT Diamond Kaur PA-C LAB BLOOD ORDER MICEHLLE Performing Organization Address City/[facility]/ZIP Co de Phone Number LABORATORY [address] [address] * (ABNORMAL) GLUCOSE METER, POINT OF CARE (06/24/2023 9:12 PM EDT) [facility] Glucose Meter 175(H) 70 - 120 mg/dL 06/24/2023 9:34 PM EDT [facility] Blood Whole blood specimen / Unknown 06/24/2023 9:12 PM EDT 06/24/2023 9:33 PM EDT Min Min Pearl THAKUR LAB POINT OF CARE TE ST DOCKED DEVICE UNSOLICITED RESULTS [facility] [address] [place] [address] * (ABNORMAL) GLUCOSE METER, POINT OF CARE (06/24/2023 4:41 PM EDT) Glucose Meter 124(H) 70 - 120 mg/dL 06/24/2023 5:39 PM EDT [facility] Blood Whole blood specimen / Unknown 06/24/2023 4:41 PM EDT 06/24/2023 5:39 PM EDT Min Min Pearl THAKUR LAB POINT OF CARE TE ST DOCKED DEVICE UNSOLICITED RESULTS Performing Organization Address [facility]/ZIP Co de Phone Number [facility] [address] [place] [address] * GLUCOSE METER, POINT OF CARE (06/24/2023 11:27 AM EDT) Glucose Meter 120 70 - 120 mg/dL 06/24/2023 12:03 PM EDT [facility] Blood Whole blood specimen / Unknown 06/24/2023 11:27 AM EDT 06/24/2023 12:03 PM EDT Min Min Pearl THAKUR LAB POINT OF CARE TE ST DOCKED DEVICE UNSOLICITED RESULTS Performing Organization Address [facility] Co de Phone Number [facility] [address] [place] [address] * (ABNORMAL) GLUCOSE METER, POINT OF CARE (06/24/2023 7:50 AM EDT) Glucose Meter 121(H) 70 - 120 mg/dL 06/24/2023 8:22 AM EDT [facility] Blood Whole blood specimen / Unknown 06/24/2023 7:50 AM EDT 06/24/2023 8:22 AM EDT Min Min Pearl THAKUR LAB POINT OF CARE TE ST DOCKED DEVICE UNSOLICITED RESULTS Performing Organization Address [facility] Co de Phone Number [facility] [address] [place] [address] * PHOSPHORUS (06/24/2023 4:31 AM EDT) Phosphorus 3.2 2.5 - 4.8 mg/dL 06/24/2023 5:57 AM EDT LABORATORY [facility] Blood Venous blood specimen / Unknown Capillary / Unknown 06/24/2023 4:31 AM EDT 06/24/2023 4:52 AM EDT Diamond Kaur PA-C LAB BLOOD ORDER MICHELLE Performing Organization Address City/[facility]/ZIP Co de Phone Number LABORATORY [address] [phone] * (ABNORMAL) MAGNESIUM (06/24/2023 4:31 AM EDT) Magnesium 1.2(L) 1.5 - 2.6 mg/dL 06/24/2023 5:57 AM EDT LABORATORY [facility] Blood Venous blood specimen / Unknown Capillary / Unknown 06/24/2023 4:31 AM EDT 06/24/2023 4:52 AM EDT Diamond Kaur PA-C LAB BLOOD ORDER MICHELLE Performing Organization Address [facility]/ZIP Co de Phone Number LABORATORY [address] [address] * (ABNORMAL) CBC (06/24/2023 4:31 AM EDT) WBC 9.05 4.00 - 10.80 K/uL 06/24/2023 5:03 AM EDT LABORATORY [facility] RBC 3.09 3.85 - 5.15 M/uL 06/24/2023 5:03 AM EDT LABORATORY GL HGB 8.8(L) 12.0 - 15.3 g/dL 06/24/2023 5:03 AM EDT LABORATORY GL HCT 27.2(L) 36.0 - 45.2 % 06/24/2023 5:03 AM EDT LABORATORY GL MCV 88.0 81.5 - 97.5 fL 06/24/2023 5:03 AM EDT LABORATORY [facility] MCH 28.5 27.0 - 34.0 pg 06/24/2023 5:03 AM EDT LABORATORY GL MCHC 32.4 32.0 - 36.0 g/dL 06/24/2023 5:03 AM EDT LABORATORY [facility] RDW 18.1 11.5 - 15.5 % 06/24/2023 5:03 AM EDT LABORATORY [facility] PLT 312 140 - 400 K/uL 06/24/2023 5:03 AM EDT LABORATORY [facility] MPV 11.5 6.6 - 11.1 fL 06/24/2023 5:03 AM EDT LABORATORY GL nRBCs 0 <=0 /100 WBCs 06/24/2023 5:03 AM EDT LABORATORY [facility] Blood Venous blood specimen / Unknown Capillary / Unknown 06/24/2023 4:31 AM EDT 06/24/2023 4:52 AM EDT Diamond Kaur PA-C LAB BLOOD ORDER MICHELLE LABORATORY [address] [address] * (ABNORMAL) COMPREHENSIVE METABOLIC PANEL (06/24/2023 4:31 AM EDT) BUN 32(H) 6 - 20 mg/dL 06/24/2023 5:57 AM EDT LABORATORY GL Creatinine 1.9(H) 0.5 - 1.0 mg/dL 06/24/2023 5:57 AM EDT LABORATORY GL Estimated Glomerular Filtration Rate 29(L) >=60 mL/min 06/24/2023 5:57 AM EDT LABORATORY GL Comment:eGFR is calculated b ased on the CKD-EPI 2020 equation Sodium 133(L) 135 - 146 mmol/L 06/24/2023 5:57 AM EDT LABORATORY GLH Potassium 3.3(L) 3.5 - 5.1 mmol/L 06/24/2023 5:57 AM EDT LABORATORY GL[facility] Chloride 94(L) 98 - 107 mmol/L 06/24/2023 5:57 AM EDT LABORATORY GL[facility] CO2 24 22 - 32 mmol/L 06/24/2023 5:57 AM EDT LABORATORY GL[facility] Anion Gap 15 7 - 15 mmol/L 06/24/2023 5:57 AM EDT LABORATORY GL[facility] Glucose 101 70 - 120 mg/dL 06/24/2023 5:57 AM EDT LABORATORY GL[facility] Albumin 2.5(L) 3.8 - 5.0 g/dL 06/24/2023 5:57 AM EDT LABORATORY GL[facility] AST 28 10 - 35 U/L 06/24/2023 5:57 AM EDT LABORATORY GL[facility] Alkaline Phosphatase 238(H) 35 - 130 U/L 06/24/2023 5:57 AM EDT LABORATORY GL[facility] Bilirubin, Total 0.2 <=1.2 mg/dL 06/24/2023 5:57 AM EDT LABORATORY GL[facility] Calcium 8.8 8.4 - 10.2 mg/dL 06/24/2023 5:57 AM EDT LABORATORY GL[facility] Protein 6.5 6.0 - 8.3 g/dL 06/24/2023 5:57 AM EDT LABORATORY GL[facility] ALT 5(L) 10 - 35 U/L 06/24/2023 5:57 AM EDT LABORATORY GL[facility] Blood Venous blood specimen / Unknown Capillary / Unknown 06/24/2023 4:31 AM EDT 06/24/2023 4:52 AM EDT Diamond Kaur PA-C LAB BLOOD ORDER MICHELLE Performing Organization Address City/[facility]/ZIP Co de Phone Number LABORATORY [address] [phone] * GLUCOSE METER, POINT OF CARE (06/23/2023 9:54 PM EDT) [facility] Glucose Meter 96 70 - 120 mg/dL 06/24/2023 1:06 AM EDT [facility] Blood Whole blood specimen / Unknown 06/23/2023 9:54 PM EDT 06/24/2023 1:06 AM EDT Min Min Pearl THAKUR LAB POINT OF CARE TE ST DOCKED DEVICE UNSOLICITED RESULTS Performing Organization Address City/[facility] Co de Phone Number [facility] [address] [place] [phone] * GLUCOSE METER, POINT OF CARE (06/23/2023 4:45 PM EDT) Glucose Meter 117 70 - 120 mg/dL 06/23/2023 5:17 PM EDT [facility] Blood Whole blood specimen / Unknown 06/23/2023 4:45 PM EDT 06/23/2023 5:16 PM EDT Min Min Pearl THAKUR LAB POINT OF CARE TE ST DOCKED DEVICE UNSOLICITED RESULTS Performing Organization Address [facility] Co de Phone Number [facility] [address] [place] [address] * (ABNORMAL) GLUCOSE METER, POINT OF CARE (06/23/2023 11:37 AM EDT) Glucose Meter 158(H) 70 - 120 mg/dL 06/23/2023 12:31 PM EDT [facility] Blood Whole blood specimen / Unknown 06/23/2023 11:37 AM EDT 06/23/2023 12:31 PM EDT Min Min Pearl THAKUR LAB POINT OF CARE TE ST DOCKED DEVICE UNSOLICITED RESULTS Performing Organization Address [facility] de Phone Number [facility] [address] [place] [address] * GLUCOSE METER, POINT OF CARE (06/23/2023 7:33 AM EDT) Glucose Meter 118 70 - 120 mg/dL 06/23/2023 8:15 AM EDT [facility] Blood Whole blood specimen / Unknown 06/23/2023 7:33 AM EDT 06/23/2023 8:15 AM EDT Min Min Pearl THAKUR LAB POINT OF CARE TE ST DOCKED DEVICE UNSOLICITED RESULTS Performing Organization Address [facility] de Phone Number [facility] [address] [place] [address] * PHOSPHORUS (06/23/2023 3:37 AM EDT) Phosphorus 3.4 2.5 - 4.8 mg/dL 06/23/2023 4:15 AM EDT LABORATORY [facility] Blood Capillary blood specimen / Unknown Capillary / Unknown 06/23/2023 3:37 AM EDT 06/23/2023 3:52 AM EDT Diamond Kaur PA-C LAB BLOOD ORDER MICHELLE Performing Organization Address City/[facility]/ZIP Co de Phone Number LABORATORY [address] [address] * (ABNORMAL) MAGNESIUM (06/23/2023 3:37 AM EDT) Pathologist [facility] Magnesium 1.3(L) 1.5 - 2.6 mg/dL 06/23/2023 4:15 AM EDT LABORATORY [facility] Blood Capillary blood specimen / Unknown Capillary / Unknown 06/23/2023 3:37 AM EDT 06/23/2023 3:52 AM EDT Diamond Kaur PA-C LAB BLOOD ORDER MICHELLE Performing Organization Address City/[facility]/ZIP Co de Phone Number LABORATORY [address] [address] * (ABNORMAL) CBC (06/23/2023 3:37 AM EDT) Pathologist [facility] WBC 8.51 4.00 - 10.80 K/uL 06/23/2023 3:58 AM EDT LABORATORY [facility] RBC 2.83 3.85 - 5.15 M/uL 06/23/2023 3:58 AM EDT LABORATORY GL HGB 8.1(L) 12.0 - 15.3 g/dL 06/23/2023 3:58 AM EDT LABORATORY GL HCT 24.9(L) 36.0 - 45.2 % 06/23/2023 3:58 AM EDT LABORATORY GL MCV 88.0 81.5 - 97.5 fL 06/23/2023 3:58 AM EDT LABORATORY GL MCH 28.6 27.0 - 34.0 pg 06/23/2023 3:58 AM EDT LABORATORY GL MCHC 32.5 32.0 - 36.0 g/dL 06/23/2023 3:58 AM EDT LABORATORY GL RDW 18.2 11.5 - 15.5 % 06/23/2023 3:58 AM EDT LABORATORY GL PLT 289 140 - 400 K/uL 06/23/2023 3:58 AM EDT LABORATORY GL MPV 11.9 6.6 - 11.1 fL 06/23/2023 3:58 AM EDT LABORATORY GL nRBCs 0 <=0 /100 WBCs 06/23/2023 3:58 AM EDT LABORATORY GL Blood Capillary blood specimen / Unknown Capillary / Unknown 06/23/2023 3:37 AM EDT 06/23/2023 3:52 AM EDT Diamond Kaur PA-C LAB BLOOD ORDER MICHELLE LABORATORY [address] [address] * (ABNORMAL) COMPREHENSIVE METABOLIC PANEL (06/23/2023 3:37 AM EDT) BUN 32(H) 6 - 20 mg/dL 06/23/2023 4:15 AM EDT LABORATORY GL Creatinine 1.8(H) 0.5 - 1.0 mg/dL 06/23/2023 4:15 AM EDT LABORATORY GLH Estimated Glomerular Filtration Rate 31(L) >=60 mL/min 06/23/2023 4:15 AM EDT LABORATORY GLH Comment:eGFR is calculated b ased on the CKD-EPI 2020 equation Sodium 133(L) 135 - 146 mmol/L 06/23/2023 4:15 AM EDT LABORATORY GLH Potassium 3.2(L) 3.5 - 5.1 mmol/L 06/23/2023 4:15 AM EDT LABORATORY GL[facility] Chloride 97(L) 98 - 107 mmol/L 06/23/2023 4:15 AM EDT LABORATORY GL[facility] CO2 25 22 - 32 mmol/L 06/23/2023 4:15 AM EDT LABORATORY GL[facility] Anion Gap 11 7 - 15 mmol/L 06/23/2023 4:15 AM EDT LABORATORY GL[facility] Glucose 123(H) 70 - 120 mg/dL 06/23/2023 4:15 AM EDT LABORATORY GL[facility] Albumin 2.1(L) 3.8 - 5.0 g/dL 06/23/2023 4:15 AM EDT LABORATORY GL[facility] AST 31 10 - 35 U/L 06/23/2023 4:15 AM EDT LABORATORY GL[facility] Alkaline Phosphatase 234(H) 35 - 130 U/L 06/23/2023 4:15 AM EDT LABORATORY GL[facility] Bilirubin, Total <0.2 <=1.2 mg/dL 06/23/2023 4:15 AM EDT LABORATORY GL[facility] Calcium 8.6 8.4 - 10.2 mg/dL 06/23/2023 4:15 AM EDT LABORATORY GL[facility] Protein 5.9(L) 6.0 - 8.3 g/dL 06/23/2023 4:15 AM EDT LABORATORY GL[facility] ALT <5(L) 10 - 35 U/L 06/23/2023 4:15 AM EDT LABORATORY GL[facility] Blood Capillary blood specimen / Unknown Capillary / Unknown 06/23/2023 3:37 AM EDT 06/23/2023 3:52 AM EDT Diamond Kaur PA-C LAB BLOOD ORDER MICHELLE Performing Organization Address City/[facility]/ZIP Co de Phone Number LABORATORY [address] [address] * (ABNORMAL) GLUCOSE METER, POINT OF CARE (06/22/2023 9:15 PM EDT) [facility] Signature Glucose Meter 125(H) 70 - 120 mg/dL 06/22/2023 9:20 PM EDT [facility] Blood Whole blood specimen / Unknown 06/22/2023 9:15 PM EDT 06/22/2023 9:20 PM EDT Min Min Pearl THAKUR LAB POINT OF CARE TE ST DOCKED DEVICE UNSOLICITED RESULTS Performing Organization Address City/[facility]/ZIP Co de Phone Number [facility] [address] [place] [address] * (ABNORMAL) GLUCOSE METER, POINT OF CARE (06/22/2023 4:41 PM EDT) Glucose Meter 125(H) 70 - 120 mg/dL 06/22/2023 4:44 PM EDT [facility] Blood Whole blood specimen / Unknown 06/22/2023 4:41 PM EDT 06/22/2023 4:44 PM EDT Min Min Pearl THAKUR LAB POINT OF CARE TE ST DOCKED DEVICE UNSOLICITED RESULTS Performing Organization Address City/[facility]/ZIP Co de Phone Number [facility] [address] [place] [address] * (ABNORMAL) GLUCOSE METER, POINT OF CARE (06/22/2023 11:30 AM EDT) Glucose Meter 156(H) 70 - 120 mg/dL 06/22/2023 11:37 AM EDT [facility] Blood Whole blood specimen / Unknown 06/22/2023 11:30 AM EDT 06/22/2023 11:37 AM EDT Min Min Pearl THAKUR LAB POINT OF CARE TE ST DOCKED DEVICE UNSOLICITED RESULTS Performing Organization Address [facility] Co de Phone Number [facility] [address] [place] [address] * (ABNORMAL) GLUCOSE METER, POINT OF CARE (06/22/2023 8:03 AM EDT) Glucose Meter 141(H) 70 - 120 mg/dL 06/22/2023 8:07 AM EDT [facility] Blood Whole blood specimen / Unknown 06/22/2023 8:03 AM EDT 06/22/2023 8:07 AM EDT Min Min Pearl THAKUR LAB POINT OF CARE TE ST DOCKED DEVICE UNSOLICITED RESULTS Performing Organization Address City/[facility]/ZIP Co de Phone Number [facility] [address] [place] [phone] * PHOSPHORUS (06/22/2023 5:16 AM EDT) Phosphorus 3.4 2.5 - 4.8 mg/dL 06/22/2023 5:47 AM EDT LABORATORY [facility] Blood Venous blood specimen / Unknown Venipuncture / Unknown 06/22/2023 5:16 AM EDT 06/22/2023 5:25 AM EDT Diamond Kaur PA-C LAB BLOOD ORDER MICHELLE LABORATORY [address] [address] * MAGNESIUM (06/22/2023 5:16 AM EDT) Pathologist [facility] Magnesium 1.5 1.5 - 2.6 mg/dL 06/22/2023 5:47 AM EDT LABORATORY [facility] Blood Venous blood specimen / Unknown Venipuncture / Unknown 06/22/2023 5:16 AM EDT 06/22/2023 5:25 AM EDT Diamond Kaur PA-C LAB BLOOD ORDER MICHELLE LABORATORY [address] [address] * (ABNORMAL) CBC (06/22/2023 5:16 AM EDT) WBC 8.89 4.00 - 10.80 K/uL 06/22/2023 5:28 AM EDT LABORATORY [facility] RBC 2.93 3.85 - 5.15 M/uL 06/22/2023 5:28 AM EDT LABORATORY [facility] HGB 8.1(L) 12.0 - 15.3 g/dL 06/22/2023 5:28 AM EDT LABORATORY [facility] HCT 26.3(L) 36.0 - 45.2 % 06/22/2023 5:28 AM EDT LABORATORY [facility] MCV 89.8 81.5 - 97.5 fL 06/22/2023 5:28 AM EDT LABORATORY GL MCH 27.6 27.0 - 34.0 pg 06/22/2023 5:28 AM EDT LABORATORY [facility] MCHC 30.8 32.0 - 36.0 g/dL 06/22/2023 5:28 AM EDT LABORATORY GL RDW 18.6 11.5 - 15.5 % 06/22/2023 5:28 AM EDT LABORATORY GL PLT 283 140 - 400 K/uL 06/22/2023 5:28 AM EDT LABORATORY GL MPV 11.3 6.6 - 11.1 fL 06/22/2023 5:28 AM EDT LABORATORY GL nRBCs 0 <=0 /100 WBCs 06/22/2023 5:28 AM EDT LABORATORY GL Blood Venous blood specimen / Unknown Venipuncture / Unknown 06/22/2023 5:16 AM EDT 06/22/2023 5:25 AM EDT Diamond Kaur PA-C LAB BLOOD ORDER MICHELLE LABORATORY [facility] [address] [place] [address] * (ABNORMAL) COMPREHENSIVE METABOLIC PANEL (06/22/2023 5:16 AM EDT) BUN 35(H) 6 - 20 mg/dL 06/22/2023 5:47 AM EDT LABORATORY GLH Creatinine 1.9(H) 0.5 - 1.0 mg/dL 06/22/2023 5:47 AM EDT LABORATORY GL[facility] Estimated Glomerular Filtration Rate 29(L) >=60 mL/min 06/22/2023 5:47 AM EDT LABORATORY GLH Comment:eGFR is calculated b ased on the CKD-EPI 2020 equation Sodium 132(L) 135 - 146 mmol/L 06/22/2023 5:47 AM EDT LABORATORY GLH Potassium 3.6 3.5 - 5.1 mmol/L 06/22/2023 5:47 AM EDT LABORATORY GL[facility] Chloride 97(L) 98 - 107 mmol/L 06/22/2023 5:47 AM EDT LABORATORY GL[facility] CO2 23 22 - 32 mmol/L 06/22/2023 5:47 AM EDT LABORATORY GL[facility] Anion Gap 12 7 - 15 mmol/L 06/22/2023 5:47 AM EDT LABORATORY GL[facility] Glucose 154(H) 70 - 120 mg/dL 06/22/2023 5:47 AM EDT LABORATORY GL[facility] Albumin 2.4(L) 3.8 - 5.0 g/dL 06/22/2023 5:47 AM EDT LABORATORY GL[facility] AST 41(H) 10 - 35 U/L 06/22/2023 5:47 AM EDT LABORATORY GL[facility] Alkaline Phosphatase 296(H) 35 - 130 U/L 06/22/2023 5:47 AM EDT LABORATORY GL[facility] Bilirubin, Total 0.2 <=1.2 mg/dL 06/22/2023 5:47 AM EDT LABORATORY GL[facility] Calcium 8.7 8.4 - 10.2 mg/dL 06/22/2023 5:47 AM EDT LABORATORY GL[facility] Protein 6.4 6.0 - 8.3 g/dL 06/22/2023 5:47 AM EDT LABORATORY GL[facility] ALT <5(L) 10 - 35 U/L 06/22/2023 5:47 AM EDT LABORATORY [facility] Blood Venous blood specimen / Unknown Venipuncture / Unknown 06/22/2023 5:16 AM EDT 06/22/2023 5:25 AM EDT Diamond Kaur PA-C LAB BLOOD ORDER MICHELLE LABORATORY [facility]H [address] [place] [phone] * (ABNORMAL) GLUCOSE METER, POINT OF CARE (06/21/2023 10:04 PM EDT) [facility] Glucose Meter 185(H) 70 - 120 mg/dL 06/21/2023 10:08 PM EDT [facility] Blood Whole blood specimen / Unknown 06/21/2023 10:04 PM EDT 06/21/2023 10:08 PM EDT Jose Martin Wolff MD LAB POINT OF CARE TE ST DOCKED DEVICE UNSOLICITED RESULTS Performing Organization Address City/[facility] Co de Phone Number [facility] [address] [place] [address] * (ABNORMAL) GLUCOSE METER, POINT OF CARE (06/21/2023 4:39 PM EDT) Glucose Meter 150(H) 70 - 120 mg/dL 06/21/2023 4:42 PM EDT [facility] Blood Whole blood specimen / Unknown 06/21/2023 4:39 PM EDT 06/21/2023 4:42 PM EDT Jose Martin Wolff MD LAB POINT OF CARE TE ST DOCKED DEVICE UNSOLICITED RESULTS Performing Organization Address [facility] Co de Phone Number [facility] [address] [place] [address] * (ABNORMAL) GLUCOSE METER, POINT OF CARE (06/21/2023 11:27 AM EDT) Glucose Meter 201(H) 70 - 120 mg/dL 06/21/2023 12:21 PM EDT [facility] Blood Whole blood specimen / Unknown 06/21/2023 11:27 AM EDT 06/21/2023 12:21 PM EDT Jose Martin Wolff MD LAB POINT OF CARE TE ST DOCKED DEVICE UNSOLICITED RESULTS Performing Organization Address City/[facility] Co de Phone Number [facility] [address] [facility] [place] [address] * (ABNORMAL) GLUCOSE METER, POINT OF CARE (06/21/2023 7:37 AM EDT) Glucose Meter 144(H) 70 - 120 mg/dL 06/21/2023 7:42 AM EDT [facility] Blood Whole blood specimen / Unknown 06/21/2023 7:37 AM EDT 06/21/2023 7:41 AM EDT Jose Martin Wolff MD LAB POINT OF CARE TE ST DOCKED DEVICE UNSOLICITED RESULTS [facility] [address] [facility] [place] [address] * (ABNORMAL) FERRITIN (06/21/2023 3:19 AM EDT) Ferritin 1,050(H) 13 - 150 ng/mL 06/21/2023 10:59 PM EDT LABORATORY [facility] Comment:Postmenopausal women have higher ferritin levels than pre-menopausal women. The above reference interval is based on pre-menopausal women. Blood Venous blood specimen / Unknown Venipuncture / Unknown 06/21/2023 3:19 AM EDT 06/21/2023 3:52 AM EDT Diamond Kaur PA-C LAB BLOOD ORDER MICHELLE LABORATORY [facility] [address] [place] [address] * (ABNORMAL) CBC (06/21/2023 3:19 AM EDT) WBC 8.53 4.00 - 10.80 K/uL 06/21/2023 3:59 AM EDT LABORATORY GL[facility] RBC 2.69 3.85 - 5.15 M/uL 06/21/2023 3:59 AM EDT LABORATORY [facility] HGB 7.6(L) 12.0 - 15.3 g/dL 06/21/2023 3:59 AM EDT LABORATORY GL[facility] HCT 24.7(L) 36.0 - 45.2 % 06/21/2023 3:59 AM EDT LABORATORY GL[facility] MCV 91.8 81.5 - 97.5 fL 06/21/2023 3:59 AM EDT LABORATORY GL[facility] MCH 28.3 27.0 - 34.0 pg 06/21/2023 3:59 AM EDT LABORATORY GL[facility] MCHC 30.8 32.0 - 36.0 g/dL 06/21/2023 3:59 AM EDT LABORATORY GL[facility] RDW 18.8 11.5 - 15.5 % 06/21/2023 3:59 AM EDT LABORATORY GL[facility] PLT 271 140 - 400 K/uL 06/21/2023 3:59 AM EDT LABORATORY GL[facility] MPV 12.1 6.6 - 11.1 fL 06/21/2023 3:59 AM EDT LABORATORY GL nRBCs 0 <=0 /100 WBCs 06/21/2023 3:59 AM EDT LABORATORY GL Blood Venous blood specimen / Unknown Venipuncture / Unknown 06/21/2023 3:19 AM EDT 06/21/2023 3:52 AM EDT Diamond Kaur PA-C LAB BLOOD ORDER MICHELLE LABORATORY GL [address] [place] [address] * (ABNORMAL) COMPREHENSIVE METABOLIC PANEL (06/21/2023 3:19 AM EDT) BUN 32(H) 6 - 20 mg/dL 06/21/2023 4:15 AM EDT LABORATORY GL[facility] Creatinine 2.0(H) 0.5 - 1.0 mg/dL 06/21/2023 4:15 AM EDT LABORATORY [facility] Estimated Glomerular Filtration Rate 28(L) >=60 mL/min 06/21/2023 4:15 AM EDT LABORATORY [facility] Comment:eGFR is calculated b ased on the CKD-EPI 2020 equation Sodium 132(L) 135 - 146 mmol/L 06/21/2023 4:15 AM EDT LABORATORY GL[facility] Potassium 4.1 3.5 - 5.1 mmol/L 06/21/2023 4:15 AM EDT LABORATORY [facility] Chloride 99 98 - 107 mmol/L 06/21/2023 4:15 AM EDT LABORATORY GL[facility] CO2 21(L) 22 - 32 mmol/L 06/21/2023 4:15 AM EDT LABORATORY [facility] Anion Gap 12 7 - 15 mmol/L 06/21/2023 4:15 AM EDT LABORATORY [facility] Glucose 128(H) 70 - 120 mg/dL 06/21/2023 4:15 AM EDT LABORATORY [facility] Albumin 2.1(L) 3.8 - 5.0 g/dL 06/21/2023 4:15 AM EDT LABORATORY [facility] AST 46(H) 10 - 35 U/L 06/21/2023 4:15 AM EDT LABORATORY [facility] Comment:Result may be falsel y elevated due to hemolysis. Alkaline Phosphatase 290(H) 35 - 130 U/L 06/21/2023 4:15 AM EDT LABORATORY [facility] Bilirubin, Total 0.2 <=1.2 mg/dL 06/21/2023 4:15 AM EDT LABORATORY [facility] Calcium 8.4 8.4 - 10.2 mg/dL 06/21/2023 4:15 AM EDT LABORATORY [facility] Protein 6.1 6.0 - 8.3 g/dL 06/21/2023 4:15 AM EDT LABORATORY [facility] ALT <5(L) 10 - 35 U/L 06/21/2023 4:15 AM EDT LABORATORY [facility] Blood Venous blood specimen / Unknown Venipuncture / Unknown 06/21/2023 3:19 AM EDT 06/21/2023 3:52 AM EDT Diamond Kaur PA-C LAB BLOOD ORDER MICHELLE LABORATORY [address] [address] * PHOSPHORUS (06/21/2023 3:19 AM EDT) Phosphorus 3.3 2.5 - 4.8 mg/dL 06/21/2023 4:15 AM EDT LABORATORY [facility] Blood Venous blood specimen / Unknown Venipuncture / Unknown 06/21/2023 3:19 AM EDT 06/21/2023 3:52 AM EDT Diamond Kaur PA-C LAB BLOOD ORDER MICHELLE LABORATORY [address] [id number] * MAGNESIUM (06/21/2023 3:19 AM EDT) Magnesium 1.7 1.5 - 2.6 mg/dL 06/21/2023 4:15 AM EDT LABORATORY [facility] Blood Venous blood specimen / Unknown Venipuncture / Unknown 06/21/2023 3:19 AM EDT 06/21/2023 3:52 AM EDT Diamond Kaur PA-C LAB BLOOD ORDER MICHELLE LABORATORY [address] [address] * (ABNORMAL) GLUCOSE METER, POINT OF CARE (06/20/2023 9:24 PM EDT) Glucose Meter 176(H) 70 - 120 mg/dL 06/20/2023 9:27 PM EDT [facility] Blood Whole blood specimen / Unknown 06/20/2023 9:24 PM EDT 06/20/2023 9:27 PM EDT Jose Martin Wolff MD LAB POINT OF CARE TE ST DOCKED DEVICE UNSOLICITED RESULTS Performing Organization Address [facility] Co de Phone Number [facility] [address] [place] [phone] * (ABNORMAL) GLUCOSE METER, POINT OF CARE (06/20/2023 4:58 PM EDT) Glucose Meter 164(H) 70 - 120 mg/dL 06/20/2023 5:14 PM EDT [facility] Blood Whole blood specimen / Unknown 06/20/2023 4:58 PM EDT 06/20/2023 5:14 PM EDT Jose Martin Wolff MD LAB POINT OF CARE TE ST DOCKED DEVICE UNSOLICITED RESULTS Performing Organization Address [facility] Co de Phone Number [facility] [address] [place] [phone] * NM MYOCARDIAL PERFUSION SPECT SINGLE REST OR STRESS (06/20/2023 11:57 AM EDT) Narrative Scheduling, Silent - 06/22/2023 11:40 AM EDT Results can be viewed in the patient's cardiology tab of Chart Review for this date of service. Vesta Israel PA-C RAD NUCL EAR MED * (ABNORMAL) GLUCOSE METER, POINT OF CARE (06/20/2023 11:22 AM EDT) Glucose Meter 176(H) 70 - 120 mg/dL 06/20/2023 11:56 AM EDT [facility] Blood Whole blood specimen / Unknown 06/20/2023 11:22 AM EDT 06/20/2023 11:56 AM EDT Jose Martin Wolff MD LAB POINT OF CARE TE ST DOCKED DEVICE UNSOLICITED RESULTS Performing Organization Address [place]/[facility] Co de Phone Number [facility] [address] [place] [address] * (ABNORMAL) GLUCOSE METER, POINT OF CARE (06/20/2023 7:57 AM EDT) Glucose Meter 171(H) 70 - 120 mg/dL 06/20/2023 8:54 AM EDT [facility] Blood Whole blood specimen / Unknown 06/20/2023 7:57 AM EDT 06/20/2023 8:54 AM EDT Jose Martin Wolff MD LAB POINT OF CARE TE ST DOCKED DEVICE UNSOLICITED RESULTS Performing Organization Address [place]/[facility]/ZIP Co de Phone Number [facility] [address] [place] [address] * MAGNESIUM (06/20/2023 5:25 AM EDT) Magnesium 1.9 1.5 - 2.6 mg/dL 06/20/2023 6:12 AM EDT [facility] Blood Venous blood specimen / Unknown Venipuncture / Unknown 06/20/2023 5:25 AM EDT 06/20/2023 5:46 AM EDT Dante Contreras DO LAB BLOOD ORDERAB LES [facility] [address] [place] [address] * (ABNORMAL) BASIC METABOLIC PANEL (06/20/2023 5:25 AM EDT) BUN 33(H) 6 - 20 mg/dL 06/20/2023 6:12 AM EDT [facility] Creatinine 2.1(H) 0.5 - 1.0 mg/dL 06/20/2023 6:12 AM EDT [facility] Estimated Glomerular Filtration Rate 26(L) >=60 mL/min 06/20/2023 6:12 AM EDT [facility] Comment:eGFR is calculated b ased on the CKD-EPI 2020 equation Sodium 134(L) 135 - 146 mmol/L 06/20/2023 6:12 AM EDT [facility] Potassium 4.3 3.5 - 5.1 mmol/L 06/20/2023 6:12 AM EDT [facility] Chloride 99 98 - 107 mmol/L 06/20/2023 6:12 AM EDT [facility] CO2 24 22 - 32 mmol/L 06/20/2023 6:12 AM EDT [facility] Anion Gap 11 7 - 15 mmol/L 06/20/2023 6:12 AM EDT [facility] Glucose 220(H) 70 - 120 mg/dL 06/20/2023 6:12 AM EDT [facility] Calcium 8.5 8.4 - 10.2 mg/dL 06/20/2023 6:12 AM EDT [facility] Blood Venous blood specimen / Unknown Venipuncture / Unknown 06/20/2023 5:25 AM EDT 06/20/2023 5:46 AM EDT Dante Contreras DO LAB BLOOD ORDERAB LES [facility] [address] [place] [address] * (ABNORMAL) CBC (06/20/2023 5:21 AM EDT) WBC 10.70 4.00 - 10.80 K/uL 06/20/2023 8:29 AM EDT [facility]ATORY [facility] RBC 2.93 3.85 - 5.15 M/uL 06/20/2023 8:29 AM EDT LABORATORY GL HGB 8.3(L) 12.0 - 15.3 g/dL 06/20/2023 8:29 AM EDT [facility] HCT 27.0(L) 36.0 - 45.2 % 06/20/2023 8:29 AM EDT [facility] MCV 92.2 81.5 - 97.5 fL 06/20/2023 8:29 AM EDT [facility] MCH 28.3 27.0 - 34.0 pg 06/20/2023 8:29 AM EDT LAB[facility]ATORY [facility] MCHC 30.7 32.0 - 36.0 g/dL 06/20/2023 8:29 AM EDT [facility] [facility] RDW 19.1 11.5 - 15.5 % 06/20/2023 8:29 AM EDT LAB[facility]AT[facility] PLT 271 140 - 400 K/uL 06/20/2023 8:29 AM EDT [facility] MPV 12.4 6.6 - 11.1 fL 06/20/2023 8:29 AM EDT [facility] nRBCs 0 <=0 /100 WBCs 06/20/2023 8:29 AM EDT [facility] Blood Venous blood specimen / Unknown Venipuncture / Unknown 06/20/2023 5:21 AM EDT 06/20/2023 5:46 AM EDT Diamond Kaur PA-C LAB BLOOD ORDER [facility] [address] [address] * EXTRA LAVENDER TOP (06/20/2023 5:21 AM EDT) Blood Venous blood specimen / Unknown Venipuncture / Unknown 06/20/2023 5:21 AM EDT 06/20/2023 5:46 AM EDT Dante Contreras DO LAB BLOOD ORDERAB LES [facility] [address] [place] [address] * (ABNORMAL) GLUCOSE METER, POINT OF CARE (06/19/2023 9:29 PM EDT) Glucose Meter 210(H) 70 - 120 mg/dL 06/19/2023 9:34 PM EDT [facility] Blood Whole blood specimen / Unknown 06/19/2023 9:29 PM EDT 06/19/2023 9:34 PM EDT Dante Contreras DO LAB POINT OF CARE TEST DOCKED DEVICE UNSOLICITED RESULTS Performing Organization Address [facility] Co de Phone Number [facility] [address] [place] [address] * (ABNORMAL) RESPIRATORY PATHOGEN PANEL, PCR (06/19/2023 8:21 PM EDT) Pathologist [facility] Adenovirus by PCR Negative Negative 024 9:15 PM EDT [facility] Coronavirus 229E by PCR Negative Negative 06/19/2023 9:15 PM EDT [facility] Coronavirus HKU1 by PCR Negative Negative 06/19/2023 9:15 PM EDT [facility] Coronavirus NL63 by PCR Negative Negative 06/19/2023 9:15 PM EDT [facility] Coronavirus OC43 by PCR Positive(A) Negative 06/19/2023 9:15 PM EDT [facility] Comment:Coronavirus OC43 det ected by PCR (amplified probe). Coronavirus SARS-CoV-2 by PCR Negative Negative 06/19/2023 9:15 PM EDT [facility] Human Metapneumovirus by PCR Negative Negative 06/19/2023 9:15 PM EDT [facility] Rhinovirus/Enterov irus by PCR Negative Negative 06/19/2023 9:15 PM EDT [facility] Influenza A Virus by PCR Negative Negative 06/19/2023 9:15 PM EDT [facility] Influenza B Virus by PCR Negative Negative 06/19/2023 9:15 PM EDT [facility] Parainfluenza Virus 1 by PCR Negative Negative 06/19/2023 9:15 PM EDT [facility] Parainfluenza Virus 2 by PCR Negative Negative 06/19/2023 9:15 PM EDT [facility] Parainfluenza Virus 3 by PCR Negative Negative 06/19/2023 9:15 PM EDT [facility] Parainfluenza Virus 4 by PCR Negative Negative 06/19/2023 9:15 PM EDT [facility] Respiratory Syncytial Virus by PCR Negative Negative 06/19/2023 9:15 PM EDT [facility] Bordetella pertussis by PCR Negative Negative 06/19/2023 9:15 PM EDT [facility] Chlamydia pneumoniae by PCR Negative Negative 06/19/2023 9:15 PM EDT [facility] Mycoplasma pneumoniae by PCR Negative Negative 06/19/2023 9:15 PM EDT [facility] Bordetella parapertussis by PCR Negative Negative 06/19/2023 9:15 PM EDT [facility] Comment: The primers that detect Rhinovirus may cross react with some Enterorviruses. The validation of bronchial specimens, tracheal aspirates, and throats for this assay was developed and performance characteristics determined by [employer]. The validation of alternate specimen types has not been cleared or approved by the U.S. Food and Drug Administration (FDA). It has been determined that such clearance or approval is not necessary. Upper Respiratory Mid-turbinate nasal swab / Unknown Non-blood Collection / Unknown 06/19/2023 8:21 PM EDT 06/19/2023 8:24 PM EDT Alan Lozano PA-C LAB MICRO - GENERAL ORDERABLES LABORATORY [address] [id number] * (ABNORMAL) GLUCOSE METER, POINT OF CARE (06/19/2023 4:24 PM EDT) Glucose Meter 237(H) 70 - 120 mg/dL 06/19/2023 4:31 PM EDT [facility] Blood Whole blood specimen / Unknown 06/19/2023 4:24 PM EDT 06/19/2023 4:31 PM EDT Dantewellington Hinton Diane DO LAB POINT OF CARE TEST DOCKED DEVICE UNSOLICITED RESULTS Performing Organization Address [facility] Co de Phone Number [facility] [address] [place] [address] * (ABNORMAL) GLUCOSE METER, POINT OF CARE (06/19/2023 11:35 AM EDT) Glucose Meter 215(H) 70 - 120 mg/dL 06/19/2023 11:38 AM EDT [facility] Blood Whole blood specimen / Unknown 06/19/2023 11:35 AM EDT 06/19/2023 11:38 AM EDT Dante Hinton Diane LAB POINT OF CARE TEST DOCKED DEVICE UNSOLICITED RESULTS Performing Organization Address [facility] de Phone Number [facility] [address] [facility] [place] [address] * NM MYOCARDIAL PERFUSION IMAGING SPECT MULTIPLE STUDIES WITH PHARMACOLOGIC INTERVENTION (06/19/2023 10:12 AM EDT) LEFT VENTRICULAR EJECTION FRACTION 67 % [facility] CARDIOLOGY 06/19/2023 10:1 2 AM EDT Vesta Israel PA-C RAD NUCL EAR MED Performing Organization Address [facility] Co de Phone Number [facility] * (ABNORMAL) GLUCOSE METER, POINT OF CARE (06/19/2023 7:20 AM EDT) Glucose Meter 148(H) 70 - 120 mg/dL 06/19/2023 8:04 AM EDT [facility] Blood Whole blood specimen / Unknown 06/19/2023 7:20 AM EDT 06/19/2023 8:04 AM EDT Dante [facility] DO LAB POINT OF CARE TEST DOCKED DEVICE UNSOLICITED RESULTS Performing Organization Address City/[facility] Co de Phone Number [facility] [address] [place] [address] * (ABNORMAL) MAGNESIUM (06/19/2023 6:17 AM EDT) Magnesium 1.4(L) 1.5 - 2.6 mg/dL 06/19/2023 7:06 AM EDT LABORATORY GL Blood Venous blood specimen / Unknown Capillary / Unknown 06/19/2023 6:17 AM EDT 06/19/2023 6:27 AM EDT Dante Contreras DO LAB BLOOD ORDERAB LES LAB[facility]AT[facility] [address], [place] [id number] * (ABNORMAL) BASIC METABOLIC PANEL (06/19/2023 6:17 AM EDT) BUN 33(H) 6 - 20 mg/dL 06/19/2023 7:06 AM EDT LABORATORY [facility] Creatinine 2.1(H) 0.5 - 1.0 mg/dL 06/19/2023 7:06 AM EDT LAB[facility]ATORY [facility] Estimated Glomerular Filtration Rate 26(L) >=60 mL/min 06/19/2023 7:06 AM EDT LAB[facility]ORY [facility] Comment:eGFR is calculated b ased on the CKD-EPI 2020 equation Sodium 135 135 - 146 mmol/L 06/19/2023 7:06 AM EDT LAB[facility]ATORY [facility] Potassium 4.3 3.5 - 5.1 mmol/L 06/19/2023 7:06 AM EDT LAB[facility]ORY [facility] Chloride 100 98 - 107 mmol/L 06/19/2023 7:06 AM EDT LAB[facility]ORY [facility] CO2 23 22 - 32 mmol/L 06/19/2023 7:06 AM EDT LAB[facility] Anion Gap 12 7 - 15 mmol/L 06/19/2023 7:06 AM EDT LAB[facility]ORY [facility] Glucose 161(H) 70 - 120 mg/dL 06/19/2023 7:06 AM EDT LAB[facility]ORY [facility] Calcium 8.3(L) 8.4 - 10.2 mg/dL 06/19/2023 7:06 AM EDT LAB[facility]ORY [facility] Blood Venous blood specimen / Unknown Capillary / Unknown 06/19/2023 6:17 AM EDT 06/19/2023 6:27 AM EDT Dante Contreras LAB BLOOD ORDERAB LES LABORATORY [address] [address] * (ABNORMAL) GLUCOSE METER, POINT OF CARE (06/18/2023 9:13 PM EDT) Glucose Meter 251(H) 70 - 120 mg/dL 06/18/2023 9:25 PM EDT [facility] Blood Whole blood specimen / Unknown 06/18/2023 9:13 PM EDT 06/18/2023 9:25 PM EDT [employer] [facility] LAB POINT OF CARE TEST DOCKED DEVICE UNSOLICITED RESULTS Performing Organization Address [facility] Co de Phone Number [facility] [address] [place] [phone] * (ABNORMAL) GLUCOSE METER, POINT OF CARE (06/18/2023 5:29 PM EDT) Glucose Meter 250(H) 70 - 120 mg/dL 06/18/2023 5:31 PM EDT [facility] Blood Whole blood specimen / Unknown 06/18/2023 5:29 PM EDT 06/18/2023 5:31 PM EDT [employer] [facility] LAB POINT OF CARE TEST DOCKED DEVICE UNSOLICITED RESULTS Performing Organization Address [facility] Co de Phone Number [facility] [address] [place] [phone] * (ABNORMAL) GLUCOSE METER, POINT OF CARE (06/18/2023 12:07 PM EDT) Glucose Meter 250(H) 70 - 120 mg/dL 06/18/2023 12:12 PM EDT [facility] Blood Whole blood specimen / Unknown 06/18/2023 12:07 PM EDT 06/18/2023 12:12 PM EDT Dante Contreras DO LAB POINT OF CARE TEST DOCKED DEVICE UNSOLICITED RESULTS Performing Organization Address City/[facility]/ZIP Co de Phone Number [facility] [address] [place] [address] * CULTURE, URINE, QUANTITATIVE (06/18/2023 9:38 AM EDT) Culture Growth No significant growth 06/19/2023 10:51 AM EDT LABORATORY [facility] Urine Urine specimen obtained by clean catch procedure / Unknown Non-blood Collection / Unknown 06/18/2023 9:38 AM EDT 06/18/2023 9:45 AM EDT Kali Mooney MD LAB MICRO - GENERA L ORDERABLES Performing Organization Address [place]/[facility] Co de Phone Number LABORATORY [facility] [address] [place] [address] * (ABNORMAL) URINALYSIS, REFLEX TO CULTURE (06/18/2023 9:38 AM EDT) Color, Urine Yellow Light Yellow, Yellow, Dark Yellow 06/18/2023 10:25 AM EDT LAB[facility]ORY [facility] Clarity, Urine Clear Clear 06/18/2023 10:25 AM EDT LAB[facility] Glucose, Urine >=1000(A) Negative mg/dL 06/18/2023 10:25 AM EDT LAB[facility] Bilirubin, Urine Negative Negative 06/18/2023 10:25 AM EDT [facility] Ketone, Urine Negative Negative mg/dL 06/18/2023 10:25 AM EDT LAB[facility] Specific [place], Urine 1.020 1.003 - 1.030 06/18/2023 10:25 AM EDT [facility] Blood, Urine Moderate(A) Negative 06/18/2023 10:25 AM EDT LAB[facility]ORY [facility] pH, Urine 6.5 5.0 - 7.5 Units 06/18/2023 10:25 AM EDT [facility] Protein, Urine >=300(A) Negative mg/dL 06/18/2023 10:25 AM EDT LABORATORY GL Urobilinogen, Urine 0.2 0.2, 1.0 mg/dL 06/18/2023 10:25 AM EDT LABORATORY GL Nitrite, Urine Negative Negative 06/18/2023 10:25 AM EDT LABORATORY GL Esterase, Urine Negative Negative 06/18/2023 10:25 AM EDT LABORATORY GL RBC, Urine 30-49(A) 0 - 2 /HPF 06/18/2023 10:25 AM EDT LAB[facility]ATORY [facility] WBC, Urine 3-5(A) 0 - 2 /HPF 06/18/2023 10:25 AM EDT LABORATORY GL Bacteria, Urine 101-150(A) 0 - 25 /HPF 06/18/2023 10:25 AM EDT LABORATORY GL Squamous Epithelial Cells, Urine Many(A) None /HPF 06/18/2023 10:25 AM EDT LABORATORY GL Yeast, Urine Present(A) None /HPF 06/18/2023 10:25 AM EDT LABORATORY GL Culture, Urine 06/18/2023 10:25 AM EDT LABORATORY GL Comment:Quantitative urine c ulture to be performed Urine Urine specimen obtained by clean catch procedure / Unknown Non-blood Collection / Unknown 06/18/2023 9:38 AM EDT 06/18/2023 9:45 AM EDT Alicja Mandel MD LAB URINE ORDERAB LES LABORATORY [address] [address] * URINALYSIS, REFLEX TO CULTURE (CUP ONLY) (06/18/2023 9:38 AM EDT) Urinalysis, Reflex to Culture Specimen Specimen collected and received 06/18/2023 11:01 AM EDT LAB[facility]ATORY [facility] Urine Urine specimen obtained by clean catch procedure / Unknown Non-blood Collection / Unknown 06/18/2023 9:38 AM EDT 06/18/2023 9:45 AM EDT Alicja Mandel MD LAB URINE ORDERAB LES Performing Organization Address [facility] Co de Phone Number LABORATORY [address] [address] * (ABNORMAL) TROPONIN T, HIGH SENSITIVITY (06/18/2023 3:55 AM EDT) Troponin T, High Sensitivity 125(HH) <=14 ng/L 06/18/2023 4:20 AM EDT [facility] Blood Venous blood specimen / Unknown Venipuncture / Unknown 06/18/2023 3:55 AM EDT 06/18/2023 3:59 AM EDT Kali Mooney MD LAB BLOOD ORDERABL ES Performing Organization Address [facility] de Phone Number LABORATORY [address] [address] * (ABNORMAL) PT INR (06/18/2023 3:55 AM EDT) Prothrombin Time 16.1(H) 11.6 - 15.2 seconds 06/18/2023 4:14 AM EDT [facility]ORY [facility] INR 1.3(H) 0.8 - 1.2 06/18/2023 4:14 AM EDT [facility] Blood Venous blood specimen / Unknown Venipuncture / Unknown 06/18/2023 3:55 AM EDT 06/18/2023 3:59 AM EDT Narrative [facility]ATORY [facility] - 06/18/2023 4:14 AM EDT Warfarin Therapy INR: 2.0-3.0 conventional anticoagulation INR: 2.5-3.5 high intensity anticoagulation Kali Mooney MD LAB BLOOD ORDERABL ES Performing Organization Address [facility] Co de Phone Number LABORATORY [address] [address] * (ABNORMAL) CBC (06/18/2023 3:55 AM EDT) WBC 9.21 4.00 - 10.80 K/uL 06/18/2023 4:01 AM EDT [facility]ORY [facility] RBC 2.64 3.85 - 5.15 M/uL 06/18/2023 4:01 AM EDT [facility]ORY [facility] HGB 7.6(L) 12.0 - 15.3 g/dL 06/18/2023 4:01 AM EDT LABORATORY GL HCT 24.3(L) 36.0 - 45.2 % 06/18/2023 4:01 AM EDT LAB[facility]ATORY [facility] MCV 92.0 81.5 - 97.5 fL 06/18/2023 4:01 AM EDT LABORATORY GL MCH 28.8 27.0 - 34.0 pg 06/18/2023 4:01 AM EDT LAB[facility]ORY [facility] MCHC 31.3 32.0 - 36.0 g/dL 06/18/2023 4:01 AM EDT [facility] RDW 18.8 11.5 - 15.5 % 06/18/2023 4:01 AM EDT LAB[facility]ATORY [facility] PLT 225 140 - 400 K/uL 06/18/2023 4:01 AM EDT LAB[facility]ATORY [facility] MPV 11.4 6.6 - 11.1 fL 06/18/2023 4:01 AM EDT [facility]ORY [facility] nRBCs 0 <=0 /100 WBCs 06/18/2023 4:01 AM EDT [facility]ORY [facility] Blood Venous blood specimen / Unknown Venipuncture / Unknown 06/18/2023 3:55 AM EDT 06/18/2023 3:59 AM EDT Kali Mooney MD LAB BLOOD ORDERABL ES LAB[facility]ATORY [facility] [address] [place] [address] * (ABNORMAL) BASIC METABOLIC PANEL (06/18/2023 3:55 AM EDT) BUN 32(H) 6 - 20 mg/dL 06/18/2023 4:18 AM EDT LABORATORY GL Creatinine 1.9(H) 0.5 - 1.0 mg/dL 06/18/2023 4:18 AM EDT LABORATORY GL Estimated Glomerular Filtration Rate 29(L) >=60 mL/min 06/18/2023 4:18 AM EDT LABORATORY [facility] Comment:eGFR is calculated b ased on the CKD-EPI 2020 equation Sodium 135 135 - 146 mmol/L 06/18/2023 4:18 AM EDT LAB[facility]ATORY [facility] Potassium 3.0(L) 3.5 - 5.1 mmol/L 06/18/2023 4:18 AM EDT LAB[facility]ATORY [facility] Chloride 99 98 - 107 mmol/L 06/18/2023 4:18 AM EDT LAB[facility]ORY [facility] CO2 23 22 - 32 mmol/L 06/18/2023 4:18 AM EDT LAB[facility] Anion Gap 13 7 - 15 mmol/L 06/18/2023 4:18 AM EDT LAB[facility] Glucose 306(H) 70 - 120 mg/dL 06/18/2023 4:18 AM EDT LAB[facility]ORY [facility] Calcium 7.9(L) 8.4 - 10.2 mg/dL 06/18/2023 4:18 AM EDT [facility] Blood Venous blood specimen / Unknown Venipuncture / Unknown 06/18/2023 3:55 AM EDT 06/18/2023 3:59 AM EDT Kali Mooney MD LAB BLOOD ORDERABL ES LABORATORY [address] [address] * MRSA SCREEN, PCR (06/18/2023 12:50 AM EDT) [facility] MRSA PCR Result Negative Negative 2:11 PM EDT LABORATORY [facility] Comment:No Methicillin resis tant Staphylococcus aureus detected by PCR (amplified probe). Upper Respiratory Swab of internal nose / Unknown Non-blood Collection / Unknown 06/18/2023 12:50 AM EDT 06/18/2023 12:54 AM EDT Kali Mooney MD LAB MICRO - GENERA L ORDERABLES LABORATORY [facility] [address] [place] [address] * (ABNORMAL) GLUCOSE METER, POINT OF CARE (06/18/2023 12:18 AM EDT) Glucose Meter 295(H) 70 - 120 mg/dL 06/18/2023 12:24 AM EDT [facility] Blood Whole blood specimen / Unknown 06/18/2023 12:18 AM EDT 06/18/2023 12:24 AM EDT Power Marshall MD LAB POINT OF CARE T EST DOCKED DEVICE UNSOLICITED RESULTS Performing Organization Address City/[facility]/ZIP Co de Phone Number [facility] [address] [place] [phone] * CULTURE, BLOOD (06/17/2023 8:48 PM EDT) [facility] Blood Culture Growth No growth 06/22/2023 9:02 PM EDT LABORATORY [facility] Blood Venous blood specimen / Unknown Venipuncture / Unknown 06/17/2023 8:48 PM EDT 06/17/2023 8:51 PM EDT Alicja Mandel MD LAB MICRO - GENER AL ORDERABLES Performing Organization Address [facility] Co de Phone Number LABORATORY [address] [address] * (ABNORMAL) TROPONIN T, HIGH SENSITIVITY (06/17/2023 8:43 PM EDT) [facility] Troponin T, High Sensitivity 103(HH) <=14 ng/L 06/17/2023 10:14 PM EDT LAB[facility]ATORY [facility] Blood Venous blood specimen / Unknown 06/17/2023 8:43 PM EDT 06/17/2023 8:51 PM EDT Kali Mooney MD LAB BLOOD ORDERABL ES Performing Organization Address [facility]/ZIP Co de Phone Number LABORATORY [address] [address] * EXTRA GREEN TOP WITH GEL (06/17/2023 8:43 PM EDT) Blood Venous blood specimen / Unknown 06/17/2023 8:43 PM EDT 06/17/2023 8:51 PM EDT Alicja Mandel MD LAB BLOOD ORDERAB LES Performing Organization Address [place]/[facility] Co de Phone Number LABORATORY [address] [address] * LACTATE (06/17/2023 8:43 PM EDT) Pathologist [facility] Lactate 1.0 0.4 - 2.0 mmol/L 06/17/2023 9:05 PM EDT [facility]ATORY [facility] Blood Venous blood specimen / Unknown Venipuncture / Unknown 06/17/2023 8:43 PM EDT 06/17/2023 8:51 PM EDT Alicja Mandel MD LAB BLOOD ORDERAB LES Performing Organization Address [facility] Co de Phone Number LABORATORY [address] [address] * CULTURE, BLOOD (06/17/2023 8:43 PM EDT) [facility] Blood Culture Growth No growth 06/22/2023 9:02 PM EDT [facility]ORY [facility] Blood Venous blood specimen / Unknown Venipuncture / Unknown 06/17/2023 8:43 PM EDT 06/17/2023 8:51 PM EDT Alicja Mandel MD LAB MICRO - GENER AL ORDERABLES Performing Organization Address [place]/[facility] Co de Phone Number LABORATORY [address] [address] * (ABNORMAL) TROPONIN T, HIGH SENSITIVITY (06/17/2023 7:51 PM EDT) Pathologist [facility] Troponin T, High Sensitivity 100(H) <=14 ng/L 06/17/2023 8:13 PM EDT LAB[facility]ATORY [facility] Blood Venous blood specimen / Unknown Venipuncture / Unknown 06/17/2023 7:51 PM EDT 06/17/2023 7:53 PM EDT Alicja Mandel MD LAB BLOOD ORDERAB LES LABORATORY [place] [id number] * CT ABD/PELVIS WO IV/ORAL CONTRAST (06/17/2023 7:23 PM EDT) Anatomical Region Laterality Modality Body, Abdomen, Pelvis Computed T omography 06/17/2023 7:15 PM EDT Impressions 06/17/2023 7:43 PM EDT IMPRESSION: 1. Moderate right and small left pleural effusions with increasing consolidation at the right lung base, correlate with any concern for infection. 2. No acute inflammatory or obstructive process is identified. Incidental findings are described within the findings section. THIS DOCUMENT HAS BEEN ELECTRONICALLY SIGNED BY CHANTE OROSCO MD Narrative 06/17/2023 7:43 PM EDT PROCEDURE INFORMATION: Exam: CT Abdomen And Pelvis Without Contrast Exam date and time: 06/17/2023 7:15 PM Age: 63 years old Clinical indication: Abdominal pain; Additional info: Left upper abdominal pain TECHNIQUE: Imaging protocol: Computed tomography of the abdomen and pelvis without contrast. Radiation optimization: All CT scans at this facility use at least one of these dose optimization techniques: automated exposure control; mA and/or kV adjustment per patient size (includes targeted exams where dose is matched to clinical indication); or iterative reconstruction. COMPARISON: 1. CT ABD/PELVIS WO IV/ORAL CONTRAST 06/02/2023 8:19 PM 2. DX XR HIP UNILAT 2-3 VIEWS INCLUDING AP PELVIS 06/01/2023 11:10 AM 3. DX XR CHEST 1 VIEW 06/17/2023 6:28 PM FINDINGS: Lungs: There is a parenchymal consolidation of the right lower lobe that is concerning for infection and is increased from prior. Scattered areas of bronchial wall thickening which are likely chronic inflammatory. A few areas of subpleural reticulation are noted, nonspecific. Pleural spaces: There is a moderate right pleural effusion. There is a small left pleural effusion. Heart: Trace pericardial fluid which is likely physiologic. Liver: Normal. Gallbladder and bile ducts: No acute process. Pancreas: Normal. Spleen: Normal. Adrenal glands: The adrenal glands appear normal. Kidneys and ureters: There are no soft tissue renal masses or hydronephrosis. Stomach and bowel: There are scattered colonic diverticula without evidence for active diverticulitis. Appendix: No evidence of appendicitis. Intraperitoneal space: Unremarkable. Vasculature: There is atherosclerotic disease of the visualized aorta and its major branch vessels. Lymph nodes: There are mildly prominent but nonenlarged and nonspecific retroperitoneal nodes. Mildly prominent nodes in the central mesentery, nonspecific. Urinary bladder: Unremarkable as visualized. Reproductive: No acute process. Bones/joints: There is diffuse degenerative disease of the visualized osseous structures. Soft tissues: There is diffuse anasarca. There are multiple new subcutaneous soft tissue densities throughout the abdomen which may reflect injection sites. Procedure Note Chante Orosco MD - 06/17/2023 PROCEDURE INFORMATION: Exam: CT Abdomen And Pelvis Without Contrast Exam date and time: 06/17/2023 7:15 PM Age: 63 years old Clinical indication: Abdominal pain; Additional info: Left upper abdominalpain TECHNIQUE: Imaging protocol: Computed tomography of the abdomen and pelvis without contrast. Radiation optimization: All CT scans at this facility use at least one ofthese dose optimization techniques: automated exposure control; mA and/or kV adjustment per patient size (includes targeted exams where dose is matchedto clinical indication); or iterative reconstruction. COMPARISON: 1. CT ABD/PELVIS WO IV/ORAL CONTRAST 06/02/2023 8:19 PM 2. DX XR HIP UNILAT 2-3 VIEWS INCLUDING AP PELVIS 06/01/2023 11:10 AM 3. DX XR CHEST 1 VIEW 06/17/2023 6:28 PM FINDINGS: Lungs: There is a parenchymal consolidation of the right lower lobe thatis concerning for infection and is increased from prior. Scattered areas of bronchial wall thickening which are likely chronic inflammatory. A fewareas of subpleural reticulation are noted, nonspecific. Pleural spaces: There is a moderate right pleural effusion. There is asmall left pleural effusion. Heart: Trace pericardial fluid which is likely physiologic. Liver: Normal. Gallbladder and bile ducts: No acute process. Pancreas: Normal. Spleen: Normal. Adrenal glands: The adrenal glands appear normal. Kidneys and ureters: There are no soft tissue renal masses orhydronephrosis. Stomach and bowel: There are scattered colonic diverticula withoutevidence for active diverticulitis. Appendix: No evidence of appendicitis. Intraperitoneal space: Unremarkable. Vasculature: There is atherosclerotic disease of the visualized aorta andits major branch vessels. Lymph nodes: There are mildly prominent but nonenlarged and nonspecific retroperitoneal nodes. Mildly prominent nodes in the central mesentery, nonspecific. Urinary bladder: Unremarkable as visualized. Reproductive: No acute process. Bones/joints: There is diffuse degenerative disease of the visualizedosseous structures. Soft tissues: There is diffuse anasarca. There are multiple newsubcutaneous soft tissue densities throughout the abdomen which may reflect injectionsites. IMPRESSION IMPRESSION: 1. Moderate right and small left pleural effusions with increasing consolidation at the right lung base, correlate with any concern forinfection. 2. No acute inflammatory or obstructive process is identified.Incidental findings are described within the findings section. THIS DOCUMENT HAS BEEN ELECTRONICALLY SIGNED BY CHANTE OROSCO MD Alicja Mandel MD RAD CT * RESPIRATORY PATHOGEN PANEL, PCR (06/17/2023 7:06 PM EDT) Adenovirus by PCR Negative Negative 024 8:01 PM EDT [facility] Coronavirus 229E by PCR Negative Negative 06/17/2023 8:01 PM EDT [facility] Coronavirus HKU1 by PCR Negative Negative 06/17/2023 8:01 PM EDT [facility] Coronavirus NL63 by PCR Negative Negative 06/17/2023 8:01 PM EDT [facility] Coronavirus OC43 by PCR Negative Negative 06/17/2023 8:01 PM EDT [facility] Coronavirus SARS-CoV-2 by PCR Negative Negative 06/17/2023 8:01 PM EDT [facility] Human Metapneumovirus by PCR Negative Negative 06/17/2023 8:01 PM EDT [facility] Rhinovirus/Enterovi cecilia by PCR Negative Negative 06/17/2023 8:01 PM EDT [facility] Influenza A Virus by PCR Negative Negative 06/17/2023 8:01 PM EDT [facility] Influenza B Virus by PCR Negative Negative 06/17/2023 8:01 PM EDT [facility] Parainfluenza Virus 1 by PCR Negative Negative 06/17/2023 8:01 PM EDT [facility] Parainfluenza Virus 2 by PCR Negative Negative 06/17/2023 8:01 PM EDT [facility] Parainfluenza Virus 3 by PCR Negative Negative 06/17/2023 8:01 PM EDT [facility] Parainfluenza Virus 4 by PCR Negative Negative 06/17/2023 8:01 PM EDT [facility] Respiratory Syncytial Virus by PCR Negative Negative 06/17/2023 8:01 PM EDT [facility] Bordetella pertussis by PCR Negative Negative 06/17/2023 8:01 PM EDT [facility] Chlamydia pneumoniae by PCR Negative Negative 06/17/2023 8:01 PM EDT [facility] Mycoplasma pneumoniae by PCR Negative Negative 06/17/2023 8:01 PM EDT [facility] Bordetella parapertussis by PCR Negative Negative 06/17/2023 8:01 PM EDT [facility] Comment: The primers that detect Rhinovirus may cross react with some Enterorviruses. The validation of bronchial specimens, tracheal aspirates, and throats for this assay was developed and performance characteristics determined by [employer]. The validation of alternate specimen types has not been cleared or approved by the U.S. Food and Drug Administration (FDA). It has been determined that such clearance or approval is not necessary. Upper Respiratory Mid-turbinate nasal swab / Unknown Non-blood Collection / Unknown 06/17/2023 7:06 PM EDT 06/17/2023 7:09 PM EDT Alicja Mandel MD LAB MICRO - GENER AL ORDERABLES LABORATORY [address] [address] * PT INR (06/17/2023 6:58 PM EDT) Pathologist [facility] Prothrombin Time 14.9 11.6 - 15.2 seconds 06/17/2023 7:16 PM EDT [facility] INR 1.2 0.8 - 1.2 06/17/2023 7:16 PM EDT [facility] Blood Venous blood specimen / Unknown Venipuncture / Unknown 06/17/2023 6:58 PM EDT 06/17/2023 7:00 PM EDT Narrative LABORATORY [facility] - 06/17/2023 7:16 PM EDT Warfarin Therapy INR: 2.0-3.0 conventional anticoagulation INR: 2.5-3.5 high intensity anticoagulation Alicja Mandel MD LAB BLOOD ORDERAB LES [facility] [address] [place] [address] * DIFFERENTIAL, AUTOMATED (06/17/2023 6:37 PM EDT) Pathologist [facility] WBC 9.85 4.00 - 10.80 K/uL 06/17/2023 6:43 PM EDT [facility] Neutrophils % 71.9 40.0 - 75.0 % 06/17/2023 6:43 PM EDT [facility] Lymphocytes % 18.2 18.0 - 42.0 % 06/17/2023 6:43 PM EDT [facility] Monocytes % 6.7 1.0 - 11.0 % 06/17/2023 6:43 PM EDT [facility] Eosinophils % 2.3 0.0 - 6.0 % 06/17/2023 6:43 PM EDT [facility] Basophils % 0.5 0.0 - 2.0 % 06/17/2023 6:43 PM EDT [facility] Immature Granulocytes % 0.4 0.0 - 2.0 % 06/17/2023 6:43 PM EDT [facility] Absolute Neutrophils 7.08 1.80 - 7.70 K/uL 06/17/2023 6:43 PM EDT [facility] Absolute Lymphocytes 1.79 1.00 - 4.80 K/ul 06/17/2023 6:43 PM EDT [facility] Absolute Monocytes 0.66 0.00 - 1.10 K/uL 06/17/2023 6:43 PM EDT LAB[facility]ATORY [facility] Absolute Eosinophils 0.23 0.00 - 0.70 K/uL 06/17/2023 6:43 PM EDT LABORATORY GL Absolute Basophils 0.05 0.00 - 0.20 K/uL 06/17/2023 6:43 PM EDT [facility] Absolute Immature Granulocytes 0.04 0.00 - 0.20 K/uL 06/17/2023 6:43 PM EDT [facility] Blood Venous blood specimen / Unknown Venipuncture / Unknown 06/17/2023 6:37 PM EDT 06/17/2023 6:40 PM EDT Alicja Mandel MD LAB BLOOD ORDERAB LES LABORATORY [address] [address] * (ABNORMAL) CBC (06/17/2023 6:37 PM EDT) Pathologist [facility] WBC 9.85 4.00 - 10.80 K/uL 06/17/2023 6:43 PM EDT [facility] RBC 2.99 3.85 - 5.15 M/uL 06/17/2023 6:43 PM EDT [facility] HGB 8.4(L) 12.0 - 15.3 g/dL 06/17/2023 6:43 PM EDT [facility] HCT 27.2(L) 36.0 - 45.2 % 06/17/2023 6:43 PM EDT [facility] MCV 91.0 81.5 - 97.5 fL 06/17/2023 6:43 PM EDT [facility] MCH 28.1 27.0 - 34.0 pg 06/17/2023 6:43 PM EDT [facility] MCHC 30.9 32.0 - 36.0 g/dL 06/17/2023 6:43 PM EDT [facility] RDW 19.2 11.5 - 15.5 % 06/17/2023 6:43 PM EDT [facility] PLT 239 140 - 400 K/uL 06/17/2023 6:43 PM EDT [facility] MPV 11.4 6.6 - 11.1 fL 06/17/2023 6:43 PM EDT [facility] nRBCs 0 <=0 /100 WBCs 06/17/2023 6:43 PM EDT [facility] Blood Venous blood specimen / Unknown Venipuncture / Unknown 06/17/2023 6:37 PM EDT 06/17/2023 6:40 PM EDT Alicja Mandel MD LAB BLOOD ORDERAB LES LABORATORY [address] [phone] * (ABNORMAL) BNP, NT-PRO (06/17/2023 6:37 PM EDT) BNP, NT-Pro 3,398(H) <300 pg/mL 06/17/2023 7:49 PM EDT [facility] Blood Venous blood specimen / Unknown Venipuncture / Unknown 06/17/2023 6:37 PM EDT 06/17/2023 6:40 PM EDT Narrative [facility] - 06/17/2023 7:49 PM EDT Exclude Heart Failure: <300 pg/mL Diagnose Heart Failure: Age <50 yr: >450 pg/mL 50-75 yr: >900 pg/mL >75 yr: >1800 pg/mL GFR is 30-59 mL/min: >1200 pg/mL or Age-adjusted values GFR <30 mL/min: do not use, not reliable Prognostic threshold: 1000 pg/mL Alicja Mandel MD LAB BLOOD ORDERAB LES Performing Organization Address [facility] Co de Phone Number LABORATORY [address] [address] * (ABNORMAL) TROPONIN T, HIGH SENSITIVITY (06/17/2023 6:37 PM EDT) Troponin T, High Sensitivity 101(HH) <=14 ng/L 06/17/2023 7:43 PM EDT [facility] Blood Venous blood specimen / Unknown Venipuncture / Unknown 06/17/2023 6:37 PM EDT 06/17/2023 6:40 PM EDT Alicja Mandel MD LAB BLOOD ORDERAB LES LAB[facility]ATORY [address] [address] * (ABNORMAL) MAGNESIUM (06/17/2023 6:37 PM EDT) Pathologist [facility] Magnesium 1.3(L) 1.5 - 2.6 mg/dL 06/17/2023 6:57 PM EDT LABORATORY GL Blood Venous blood specimen / Unknown Venipuncture / Unknown 06/17/2023 6:37 PM EDT 06/17/2023 6:40 PM EDT Alicja Mandel MD LAB BLOOD ORDERAB LES Performing Organization Address City/[facility]/ZIP Co de Phone Number LABORATORY [address] [phone] * LIPASE (06/17/2023 6:37 PM EDT) Pathologist [facility] Lipase 42 13 - 60 U/L 06/17/2023 6:57 PM EDT [facility] Blood Venous blood specimen / Unknown Venipuncture / Unknown 06/17/2023 6:37 PM EDT 06/17/2023 6:40 PM EDT Alicja Mandel MD LAB BLOOD ORDERAB LES Performing Organization Address [place]/[facility] Co de Phone Number LABORATORY [address] [phone] * (ABNORMAL) HEPATIC FUNCTION PANEL (06/17/2023 6:37 PM EDT) Pathologist [facility] Albumin 2.5(L) 3.8 - 5.0 g/dL 06/17/2023 6:57 PM EDT [facility] AST 30 10 - 35 U/L 06/17/2023 6:57 PM EDT [facility] Alkaline Phosphatase 267(H) 35 - 130 U/L 06/17/2023 6:57 PM EDT [facility] ALT <5(L) 10 - 35 U/L 06/17/2023 6:57 PM EDT [facility] Bilirubin, Total <0.2 <=1.2 mg/dL 06/17/2023 6:57 PM EDT [facility] Bilirubin, Direct <0.2 0.0 - 0.3 mg/dL 06/17/2023 6:57 PM EDT [facility] Protein 6.4 6.0 - 8.3 g/dL 06/17/2023 6:57 PM EDT LAB[facility] Blood Venous blood specimen / Unknown Venipuncture / Unknown 06/17/2023 6:37 PM EDT 06/17/2023 6:40 PM EDT Alicja Mandel MD LAB BLOOD ORDERAB LES Performing Organization Address City/State/[facility] Co de Phone Number LABORATORY [address] [address] * (ABNORMAL) AMYLASE (06/17/2023 6:37 PM EDT) Amylase 27(L) 28 - 100 U/L 06/17/2023 6:57 PM EDT LABORATORY GL Blood Venous blood specimen / Unknown Venipuncture / Unknown 06/17/2023 6:37 PM EDT 06/17/2023 6:40 PM EDT Alicja Mandel MD LAB BLOOD ORDERAB LES Performing Organization Address [place]/[facility] Co de Phone Number LABORATORY [address] [address] * XR CHEST 1 VIEW (06/17/2023 6:34 PM EDT) Anatomical Region Laterality Modality Chest Digital Radiogra phy 06/17/2023 6:28 PM EDT Impressions 06/17/2023 7:40 PM EDT IMPRESSION: Hazy opacities appear somewhat decreased from the prior study. THIS DOCUMENT HAS BEEN ELECTRONICALLY SIGNED BY CHANTE OROSCO MD Narrative 06/17/2023 7:40 PM EDT PROCEDURE INFORMATION: Exam: XR Chest Exam date and time: 06/17/2023 6:28 PM Age: 63 years old Clinical indication: Pain; Angina pectoris; Additional info: Chest pain TECHNIQUE: Imaging protocol: Radiologic exam of the chest. Views: 1 view. COMPARISON: DX XR CHEST 1 VIEW 06/06/2023 12:20 PM FINDINGS: Tubes, catheters and devices: There is a right upper extremity PICC, catheter tip projects over the superior vena cava. Lungs: Hazy opacities appear somewhat decreased from the prior study. Pleural spaces: No large effusion or pneumothorax. Heart/Mediastinum: Stable cardiac and mediastinal contours. Bones/joints: No evidence of acute osseous abnormalities within the visualized portions of the thoracic spine and ribs. Osseous structures appear appropriate for patient age. Procedure Note Chante Orosco MD - 06/17/2023 PROCEDURE INFORMATION: Exam: XR Chest Exam date and time: 06/17/2023 6:28 PM Age: 63 years old Clinical indication: Pain; Angina pectoris; Additional info: Chest pain TECHNIQUE: Imaging protocol: Radiologic exam of the chest. Views: 1 view. COMPARISON: DX XR CHEST 1 VIEW 06/06/2023 12:20 PM FINDINGS: Tubes, catheters and devices: There is a right upper extremity PICC,catheter tip projects over the superior vena cava. Lungs: Hazy opacities appear somewhat decreased from the prior study. Pleural spaces: No large effusion or pneumothorax. Heart/Mediastinum: Stable cardiac and mediastinal contours. Bones/joints: No evidence of acute osseous abnormalities within thevisualized portions of the thoracic spine and ribs. Osseous structures appearappropriate for patient age. IMPRESSION IMPRESSION: Hazy opacities appear somewhat decreased from the prior study. THIS DOCUMENT HAS BEEN ELECTRONICALLY SIGNED BY CHANTE OROSCO MD Alicja Mandel MD RADIOLOGY (RAD [facility]) * EXTRA CARTER TOP (06/17/2023 6:30 PM EDT) Blood Venous blood specimen / Unknown 06/17/2023 6:30 PM EDT 06/17/2023 6:40 PM EDT Alicja Mandel MD LAB BLOOD ORDERAB LES [address] [address] * ECG Interpret (06/17/2023 6:06 PM EDT) Narrative Alicja Mandel MD - 06/17/2023 6:06 PM EDT Ailcja Mandel MD 06/18/2023 12:18 AM ECG Interpret Date/Time: 06/17/2023 6:06 PM Performed by: Alicja Mandel MD Authorized by: Alicja Mandel MD Previous ECG: Previous ECG: Compared to current Comments: Done at 17:49 shows significant baseline artifact. Appears to be normal sinus rhythm, rate 76. Right bundle branch block. Inferior infarct. Left axis deviation. Nonspecific diffuse T-wave flattening. Poor R-wave progression. Compared to prior EKG of 06/03/2023 done at 05:14, junctional rhythm does not appear evident at this time Alicja Mandel MD PROCEDURE REPORT * EKG (06/17/2023 5:49 PM EDT) 06/17/2023 5:49 PM EDT Narrative Procedure Note Nan Conway MD - 06/17/2023 5:49 PM EDT REASON FOR STUDY: CP CONCLUSIONS: Sinus rhythm with 1st degree AV block Left axis deviation Right bundle branch block High QRS voltage may be normal variant or due to lve Abnormal ECG When compared with ECG of 03-Jun-2023 05:14, Sinus rhythm has replaced Wide QRS rhythm Ventricular Rate: 76 Atrial Rate: 76 LA Interval: 306 QRS Duration: 130 QT/QTc: 472/531 ms P-R-T [place]: 52 : -58 : 14 degrees Alicja Mandel MD EKG [facility] documented in this encounter Visit Diagnoses Diagnosis Anasarca- Primary Edema Chest pain Chest pain, unspecified Pulmonary infiltrate present on computed tomography Acute on chronic congestive heart failure, unspecified heart failure type (HCC) Type 2 diabetes mellitus, with long-term current use of insulin (HCC) Hypothyroid Unspecified hypothyroidism Hypertension Unspecified essential hypertension Chronic kidney disease, stage IV (severe) (HCC) Chronic kidney disease, Stage IV (severe) Chest pain Chest pain, unspecified Ambulatory dysfunction Diabetic ulcer of right heel (HCC) Hypokalemia Hypopotassemia Hypomagnesemia Disorders of magnesium metabolism Moderate pulmonary hypertension (HCC) Acute on chronic diastolic congestive heart failure (HCC) Acute on chronic diastolic heart failure Osteomyelitis of right foot (HCC) Unspecified osteomyelitis, ankle and foot Iron deficiency anemia Iron deficiency anemia, unspecified Cellulitis of index finger Cellulitis and abscess of finger, unspecified documented in this encounter Administered Medications Inactive Administered Medications - up to 3 most recent administrations Medication Order MAR Action Action Date Dose Rate Site Acetaminophen (Tylenol) tab 650 mg 650 mg, Oral, Q4H PRN Pain, Mild, Pain, Moderate, Headache, Fever >38C(100.5F), Starting on Sun06/18/23 at 1015, Until Sun06/25/23 at 1708, Maximum of 4 grams (4000 mg) per day. Given 06/23/2023 11:20 PM EDT 650 mg Given 06/21/2023 6:33 PM EDT 650 mg Given 06/19/2023 4:58 PM EDT 650 mg albuterol (VENTOLIN HFA/PROVENTIL HFA) inhaler 2 Puff, Inhalation, Q6H PRN Dyspnea, Starting on Sun06/17/23 at 2132, Until Sun06/25/23 at 1708, Shake can for 10 seconds before each puff SEND INHALER WITH PATIENT! WASTE INFO ( IF NOT SENT HOME WITH PATIENT) : Return unused medication to pharmacy in zip lock bag for disposal into black container labeled SP. Given 06/19/2023 12:56 PM EDT 2 Puffs amitriptyline (Elavil) tab 100 mg 100 mg, Oral, QHS, First dose on Sun06/18/23 at 0015, Until Discontinued Given 06/24/2023 9:11 PM EDT 100 mg Given 06/23/2023 10:35 PM EDT 100 mg Given 06/22/2023 10:11 PM EDT 100 mg Benzonatate (Tessalon Perles) cap 100 mg 100 mg, Oral, Q4H PRN Cough, Starting on Sun06/19/23 at 1348, Until Sun06/25/23 at 1708, This med should NOT be Crushed or Chewed Given 06/23/2023 6:15 AM EDT 100 mg Given 06/22/2023 8:34 PM EDT 100 mg Given 06/22/2023 11:29 AM EDT 100 mg Bisacodyl (Dulcolax) tab 5 mg 5 mg, Oral, DAILY PRN If constipation not relieved by polyethylene glycol, Starting on Sun06/18/23 at 1044, Until Sun06/25/23 at 1708, This med should NOT be Crushed or Chewed Given 06/22/2023 8:34 PM EDT 5 mg calcium CARBonate (Tums E-X) tab CHEW 750 mg 750 mg, Oral, Q6H PRN Indigestion, Nausea, Starting on Sun06/24/23 at 1253, Until Sun06/25/23 at 1708 ceFAZolin in dextrose (Ancef) ivpb 2 g 2 g, IV Piggyback, Q12H, 10 doses, First dose on Sun06/18/23 at 0900, Last dose on Sun06/22/23 at 2100 New Bag 06/22/2023 8:41 PM EDT 2 g 100 mL/hr Restarted 06/22/2023 9:49 AM EDT 4 g/hr 100 mL/hr New Bag 06/22/2023 9:13 AM EDT 2 g 100 mL/hr ceFAZolin in dextrose (Ancef) ivpb 2 g 2 g, IV Piggyback, Q12H, 62 doses, First dose on Sun06/23/23 at 1130, Last dose on Sun07/23/23 at 2100 New Bag 06/25/2023 9:39 AM EDT 2 g 100 mL/hr New Bag 06/24/2023 9:16 PM EDT 2 g 100 mL/hr New Bag 06/24/2023 8:27 AM EDT 2 g 100 mL/hr cefepime in dextrose premix ivpb 2 g 2 g, IV Piggyback, ONCE, 1 dose, On Sun06/17/23 at 2115, Administer over 30 Minutes New Bag 06/17/2023 10:51 PM EDT 2 g 100 mL/hr chlorhexidine gluconate cloth 2 % pad External, [id number], First dose on Sun06/18/23 at 1000, Until Discontinued, Applied to appropriate patients per podiatry teacher's recommendations FOLLOWING daily care. Given 06/25/2023 10:00 AM EDT Given 06/25/2023 9:34 AM EDT 1 Pad Given 06/24/2023 12:07 PM EDT 1 Pad dextrose 50% inj 25 mL 25 mL, IV Push, PRN Hypoglycemia, Other, For blood glucose 54 - 69 mg/dL or 70 - 100 mg/dL with symptoms AND patient is unresponsive, NPO, OR unable to swallow, Starting on Sun06/18/23 at 1012, Until Sun06/25/23 at 1708, Administer IV. Recheck blood glucose after 15 minutes. Notify provider. dextrose 50% inj 50 mL 50 mL, IV Push, PRN Hypoglycemia, Other, For blood glucose below 54 mg/dL AND patient unresponsive, NPO, OR unable to swallow, Starting on Sun06/18/23 at 1012, Until Sun06/25/23 at 1708, Administer IV. Recheck blood glucose in 15 minutes. Notify provider. doxycycline tab 100 mg 100 mg, Oral, Q12H, First dose on Sun06/19/23 at 2100, Last dose on Sun06/24/23 at 0900, For 5 days Given 06/24/2023 8:17 AM EDT 100 mg Given 06/23/2023 8:01 PM EDT 100 mg Given 06/23/2023 8:52 AM EDT 100 mg Enoxaparin (Lovenox) inj 60 mg 60 mg, Subcutaneous, Q12H, First dose on Sun06/18/23 at 0900, Until Discontinued, If patient is on warfarin, inform provider if daily INR value is 2 or greater! Given 06/25/2023 8:45 AM EDT 60 mg Abdomen Left Lower Given 06/24/2023 9:11 PM EDT 60 mg Ab domen Right Lower Given 06/24/2023 8:16 AM EDT 60 mg Ab domen Right Lower fluticasone (Flonase) nasal inhaler 2 Adams 2 Adams, Each Nostril, Daily(AM), First dose (after last modification) on Sun06/19/23 at 1930, Until Discontinued, 50 mcg / Actuation Given 06/25/2023 9:34 AM EDT 2 Sprays Given 06/24/2023 8:16 AM EDT 2 Sprays Given 06/23/2023 8:52 AM EDT 2 Sprays Furosemide (Lasix) inj 40 mg 40 mg, IV Push, ONCE, On Sun06/17/23 at 2030, For 1 dose Given 06/17/2023 8:25 PM EDT 40 mg Furosemide (Lasix) inj 60 mg 60 mg, IV Push, Q8H, First dose (after last modification) on Sun06/17/23 at 2215, Until Discontinued Given 06/18/2023 6:12 AM EDT 60 mg Given 06/18/2023 12:00 AM EDT 60 mg Furosemide (Lasix) inj 80 mg 80 mg, IV Push, BID (0900, 1600), First dose (after last modification) on Sun06/18/23 at 1600, Until Discontinued Given 06/20/2023 9:43 AM EDT 80 mg Given 06/19/2023 3:36 PM EDT 80 mg Given 06/19/2023 7:54 AM EDT 80 mg Furosemide (Lasix) inj 80 mg 80 mg, IV Push, Q8H, First dose (after last modification) on Sun06/20/23 at 1400, Until Discontinued Given 06/21/2023 6:03 AM EDT 80 mg Given 06/20/2023 9:19 PM EDT 80 mg Given 06/20/2023 1:07 PM EDT 80 mg Furosemide (Lasix) inj 80 mg 80 mg, IV Push, Q8H, First dose (after last modification) on Sun06/21/23 at 1400, Until Discontinued Given 06/25/2023 5:58 AM EDT 80 mg Given 06/24/2023 9:11 PM EDT 80 mg Given 06/24/2023 2:15 PM EDT 80 mg glucagon (Glucagen) inj 1 mg 1 mg, Intramuscular, PRN Hypoglycemia, Other, If patient is unresponsive, or NPO and has no IV access, Starting on Sun06/18/23 at 1012, Until Sun06/25/23 at 1708, NPO and no IV access with either 1) blood glucose less than 100 mg/dL and symptomatic OR 2) blood glucose less than 70 mg/dL and asymptomatic Glucose (Glutose 15) 40 % gel 15 g of glucose 15 g of glucose, Oral, PRN Hypoglycemia (low sugar), Other, For blood glucose 54 - 69 mg/dL or 70 - 100 mg/dL with symptoms AND patient alert WITH difficulty chewing/swallowing, Starting on Sun06/18/23 at 1012, Until Sun06/25/23 at 1708, Administer gel. Recheck blood glucose after 15 minutes. Notify provider. 37.5 gram tube = 15 grams glucose = 1 each Glucose (Glutose 15) 40 % gel 30 g of glucose 30 g of glucose, Oral, PRN Hypoglycemia (low sugar), Other, For blood glucose below 54 mg/dL AND patient alert WITH difficulty chewing/swallowing, Starting on Sun06/18/23 at 1012, Until Sun06/25/23 at 1708, Administer gel. Recheck blood glucose after 15 minutes. Notify provider. 37.5 gram tube = 15 grams glucose = 1 each glucose chew tab 16 g 16 g, Oral, PRN Hypoglycemia, Other, For blood glucose 54 - 69 mg/dL or 70 - 100 mg/dL with symptoms and patient alert without difficulty chewing/swallowing., Starting on Sun06/18/23 at 1012, Until Sun06/25/23 at 1708 hydrALAZINE (Apresoline) inj 10 mg 10 mg, Intravenous, ONCE, On 06/23/23 at 2315, For 1 dose Given 06/23/2023 11:16 PM EDT 10 mg hydrOXYzine HCl tab 50 mg 50 mg, Oral, Q8H PRN Anxiety, Starting on Sun06/17/23 at 2131, Until Sun06/25/23 at 1708 Given 06/21/2023 6:33 PM EDT 50 mg Given 06/19/2023 12:57 PM EDT 50 mg Given 06/18/2023 9:18 PM EDT 50 mg insulin aspart (NovoLOG) inj 4 Units 4 Units, Subcutaneous, WITH MEALS, First dose on Sun06/18/23 at 1200, Until Discontinued, Hold dose if patient does not eat. Given 06/25/2023 12:12 PM EDT 4 Units Abdomen Left Upper Given 06/25/2023 8:46 AM EDT 4 Units Ab domen Left Lower Given 06/24/2023 5:08 PM EDT 4 Units Ar m Right Upper insulin aspart (NovoLOG) inj Subcutaneous, W/MEALS AND HS, First dose on Sun06/18/23 at 1200, Until Discontinued, MEDIUM DOSE (Usual starting dose): Sliding Scale Correctional insulin may be given if the patient is NPO. Dose based on standard build from Insulin Calculator. Do not modify insulin doses in administration instructions! , Glucose less than 70 instructions: Obtain STAT lab blood glucose and call covering provider., Glucose 80-150 (units): 0, Glucose 151-200 (units): 2, Glucose 201-250 (units): 4, Glucose 251-300 (units): 6, Glucose greater than 300 (units): 8, Glucose greater than 300 instructions: Give suggested insulin dose and call covering provider. Given 06/25/2023 12:14 PM EDT 2 Units Abdomen Left Upper Given 06/24/2023 9:26 PM EDT 2 Units Ar m Left Upper Given 06/23/2023 12:31 PM EDT 2 Units A rm Right Upper Insulin Glargine (Lantus) inj 10 Units 10 Units, Subcutaneous, HS, First dose on Sun06/18/23 at 0015, Until Discontinued, "IF DOSE IS HELD- NOTIFY COVERING PROVIDER!" Given 06/24/2023 9:26 PM EDT 10 Units Arm L eft Upper Given 06/22/2023 10:11 PM EDT 10 Units A rm Right Upper Given 06/21/2023 10:37 PM EDT 10 Units A rm Left Upper levothyroxine (Levoxyl) tab 175 mcg 175 mcg, Oral, AT 0630, First dose on Sun06/18/23 at 0630, Until Discontinued Given 06/25/2023 6:01 AM EDT 175 mcg Given 06/24/2023 6:20 AM EDT 175 mcg Given 06/23/2023 6:00 AM EDT 175 mcg LiquaCel 30 mL, Oral, DAILY NOON, First dose on Sun06/20/23 at 1515, Until Discontinued Given 06/25/2023 12:12 PM EDT 30 mL Given 06/24/2023 12:04 PM EDT 30 mL Given 06/23/2023 12:30 PM EDT 30 mL Lisinopril (Prinivil) tab 40 mg 40 mg, Oral, Daily(AM), First dose on Sun06/18/23 at 0900, Until Discontinued Given 06/25/2023 8:45 AM EDT 40 mg Given 06/24/2023 8:16 AM EDT 40 mg Given 06/23/2023 8:52 AM EDT 40 mg magnesium sulfate 1 g in d5w 100mL LOCKED DOSE 1 g, IV Piggyback, ONCE, 1 dose, On Sun06/17/23 at 1945, Administer over 60 Minutes New Bag 06/17/2023 7:29 PM EDT 1 g 100 mL/hr magnesium sulfate in FI iv piggyback 4,000 mg 4,000 mg, IV Piggyback, ONCE, 1 dose, On Sun06/19/23 at 0815, Administer over 4 Hours New Bag 06/19/2023 10:07 AM EDT 4,000 mg 25 mL/ hr magnesium sulfate in [facility] iv piggyback 4,000 mg 4,000 mg, IV Piggyback, ONCE, 1 dose, On Sun06/24/23 at 0800, Administer over 4 Hours Restarted 06/24/2023 12:03 PM EDT 1 g/hr 25 mL/ hr Rate Verify 06/24/2023 9:44 AM EDT 1 g/hr 25 mL/hr New Bag 06/24/2023 9:43 AM EDT 4,000 mg 25 mL/hr Menthol (Hornick) cough drop 1 Lozenge 1 Lozenge, Oral, Q2H PRN Sore throat, Starting on Sun06/18/23 at 1932, Until Sun06/25/23 at 1708 Given 06/19/2023 3:40 PM EDT 1 Lozenge Given 06/18/2023 9:19 PM EDT 1 Lozenge metOLazone (Zaroxolyn) tab 5 mg 5 mg, Oral, ONCE, On Sun06/21/23 at 1100, For 1 dose Given 06/21/2023 11:21 AM EDT 5 mg Miconazole Nitrate (Remedy) powder Topical, BID (.AM/PM), First dose on Sun06/18/23 at 0900, Until Discontinued, Apply to abdominal folds Given 06/25/2023 8:49 AM EDT Given 06/24/2023 9:12 PM EDT Given 06/24/2023 8:16 AM EDT morphine sulfate inj 2 mg 2 mg, IV Push, ONCE, On Sun06/17/23 at 1900, For 1 dose Given 06/17/2023 7:03 PM EDT 2 mg morphine sulfate inj 2 mg 2 mg, IV Push, ONCE, On Sun06/17/23 at 2045, For 1 dose Given 06/17/2023 8:27 PM EDT 2 mg Nitroglycerin (Nitro-Bid) 2 % ointment 1 Inch 1 Inch, Transdermal, ONCE, On Sun06/17/23 at 1900, For 1 dose, If patient is pain-free 1 inch = 1 packet = 1 gram Given 06/17/2023 7:00 PM EDT 1 Inch Ch est Left Nitroglycerin (Nitrostat) sl tab 0.4 mg 0.4 mg, Sublingual, Q5 MIN PRN Pain, Chest, Starting on Sun06/17/23 at 2137, Until Sun06/25/23 at 1708, Every 5 minutes for chest pain - may repeat 3 times. Remove seal from bottle if opened. omeprazole (PriLOSEC) cap 20 mg 20 mg, Oral, BEFORE BREAKFAST, First dose on Sun06/18/23 at 0745, Until Discontinued, This med should NOT be Crushed or Chewed Given 06/25/2023 7:48 AM EDT 20 mg Given 06/24/2023 8:17 AM EDT 20 mg Given 06/23/2023 8:52 AM EDT 20 mg ondansetron (Zofran) inj 4 mg 4 mg, IV Push, ONCE, On Sun06/17/23 at 1900, For 1 dose Given 06/17/2023 7:01 PM EDT 4 mg ondansetron (Zofran) inj 4 mg 4 mg, IV Push, ONCE, On Sun06/17/23 at 2045, For 1 dose Given 06/17/2023 8:24 PM EDT 4 mg ondansetron (Zofran) inj 4 mg 4 mg, IV Push, Q6H PRN Nausea, Starting on Sun06/17/23 at 2137, Until Sun06/25/23 at 1708 Given 06/23/2023 8:00 PM EDT 4 mg Given 06/22/2023 11:29 AM EDT 4 mg Given 06/21/2023 4:10 PM EDT 4 mg Oral Hygiene: Mouth Swab with dentifrice Oral, PCHS, First dose on Sun06/18/23 at 0900, Until Discontinued, To be used with 1.5% hydrogen peroxide solution or 0.05% cetylpyridium chloride oral rinse Given 06/25/2023 9:35 AM EDT 1 Kit Given 06/24/2023 10:00 PM EDT Given 06/24/2023 6:15 PM EDT 1 Kit oxygen GAS Inhalation, OXYGEN, First dose on Sun06/18/23 at 0000, Until Discontinued, Device/Managed by: Low Flow Device, Goal SPO2 (%): 91-95, Starting Device: Nasal Cannula, Initial Flow Rate (LPM): 2, Lowest Support: Nasal Cannula: Flow 0-6 LPM. Titrate up/down by 1 LPM., Higher Support: Non-Rebreather (NRB) Mask: Minimum of 10 LPM. Titrate to maintain bag inflation., Titration Interval: Q2 minutes and as needed., Notify Provider: For sudden DECREASE in resting SPO2 to less than 85% and when escalating delivery device., Should be on 2L at baseline Wean Oxygen when the oxygen saturation is greater than or equal to 93% to lowest support of 2L. Oxygen On 06/25/2023 8:00 AM EDT Oxygen On 06/25/2023 12:00 AM EDT Oxygen On 06/24/2023 4:00 PM EDT Polyethylene Glycol 3350 (Miralax) oral powder 17 g 17 g, Oral, DAILY PRN If constipation not relieved by docusate-senna, Starting on Sun06/18/23 at 1048, Until Sun06/25/23 at 1708, Mix in 8 oz of water, juice, soda, coffee, or tea. potassium chloride ER tab 40 mEq 40 mEq, Oral, ONCE, On Sun06/18/23 at 0015, For 1 dose, This med should NOT be Crushed or Chewed Given 06/18/2023 12:19 AM EDT 40 mEq potassium chloride ER tab 40 mEq 40 mEq, Oral, TID(AM/NOON/HS), First dose on Sun06/18/23 at 1200, Last dose on Sun06/19/23 at 0600, For 3 doses, This med should NOT be Crushed or Chewed Given 06/19/2023 6:04 AM EDT 40 mEq Given 06/18/2023 9:18 PM EDT 40 mEq Given 06/18/2023 12:03 PM EDT 40 mEq potassium chloride ER tab 40 mEq 40 mEq, Oral, Daily(AM), First dose on Sun06/23/23 at 0900, Until Discontinued, This med should NOT be Crushed or Chewed Given 06/23/2023 8:52 AM EDT 40 mEq potassium chloride ER tab 40 mEq 40 mEq, Oral, BID (.AM/PM), First dose (after last modification) on Sun06/24/23 at 0900, Until Discontinued, This med should NOT be Crushed or Chewed Given 06/25/2023 8:45 AM EDT 40 mEq Given 06/24/2023 9:11 PM EDT 40 mEq Given 06/24/2023 8:17 AM EDT 40 mEq Regadenoson (Lexiscan) inj 0.4 mg 0.4 mg, IV Push, ONCE, On Sun06/19/23 at 0945, For 1 dose, Inject over 10 seconds with 5-10 ml saline flush immediately after, Cardiac Studies_HODHOV Given 06/19/2023 9:30 AM EDT 0.4 mg senna-docusate (Senokot-S) 1 Tablet 1 Tablet, Oral, BID PRN Constipation, Starting on Sun06/17/23 at 2134, Until Sun06/25/23 at 1708 Given 06/23/2023 8:01 PM EDT 1 Tablet Simvastatin (Zocor) tab 20 mg 20 mg, Oral, Daily(AM), First dose on Sun06/18/23 at 0900, Until Discontinued Given 06/25/2023 8:45 AM EDT 20 mg Given 06/24/2023 8:18 AM EDT 20 mg Given 06/23/2023 8:52 AM EDT 20 mg sodium chloride 0.9 % flush central line 10 mL 10 mL, IV Push, Q8H, First dose on Sun06/18/23 at 1400, Until Discontinued, TO UNUSED PORTS Do not flush if lock, PICC, or central line not in place; IV infusing or unable to flush. Given 06/25/2023 6:0 0 AM EDT 10 mL Given 06/24/2023 9:11 PM EDT 10 mL Given 06/24/2023 2:00 PM EDT 10 mL sodium chloride 0.9 % flush/inj 10 mL 10 mL, IV Push, ONCE PRN Other, For Nuclear Stress Only - To follow Lexiscan Administration, Starting on Sun06/19/23 at 0900, Until Sun06/19/23 at 1059, For 2 hours, 5-10 ml Saline Flush to Immediately Follow Lexiscan Injection, Cardiac Studies_HODHOV Given 06/19/2023 9:30 AM EDT 10 mL Technetium Tc 99m Sestamibi (Sestamibi) inj 28 millicurie 28 millicurie, Intravenous, ONCE, On Sun06/19/23 at 1000, For 1 dose, Radiology Medication Routing (Non-IR) Given 06/19/2023 10:00 AM EDT 28 millicuries trimethobenzamide (Tigan) inj 100 mg 100 mg, Intramuscular, QID PRN Nausea, Vomiting, Starting on Sun06/24/23 at 1245, Until Sun06/25/23 at 1708 documented in this encounter Active and Recently Administered Medications Times are shown in EDT. Scheduled Medication Order 06/23/2023 06/24/2023 06/25/2023 amitriptyline (Elavil) tab 100 mg 100 mg, Oral, QHS, First dose on Sun06/18/23 at 0015, Until Discontinued 2235 (Given - Provider: Quyen Mccauley RN) 2110 (Given - Provider: Quyen Mccauley RN) ceFAZolin in dextrose (Ancef) ivpb 2 g 2 g, IV Piggyback, Q12H, 62 doses, First dose on Sun06/23/23 at 1130, Last dose on Sun07/23/23 at 2100 1245 (New Bag - Provider: Ayana Patterson RN)1314 (Stopped - Provider: Zoraida Springer RN)2009 (New Bag - Provider: Quyen Mccauley RN)2039 (Stopped - Provider: Zoraida Springer RN) 0827 (New Bag - Provider: Zoraida Springer RN)0857 (Stopped - Provider: Zoraida Springer, SARTHAK)2115 (New Bag - Provider: Quyen Mccauley, SARTHAK)214 (Stopped - Provider: Quyen Mccauley RN) 0939 (New Bag - Provider: Zoraida Springer RN)1009 (Stopped - Provider: Zoraida Springer RN) chlorhexidine gluconate cloth 2 % pad External, [id number], First dose on Sun06/18/23 at 1000, Until Discontinued, Applied to appropriate patients per podiatry teacher's recommendations FOLLOWING daily care. 1008 (Given - Provider: Ayana Patterson RN) 1207 (Given - Provider: Zoraida Springer RN) 0934 (Given - Provider: Zoraida Springer RN)1000 (Given - Provider: Zoraida Springer RN - Comment: given at 0934 as noted on MAY) doxycycline tab 100 mg (COMPLETED) 100 mg, Oral, Q12H, First dose on Sun06/19/23 at 2100, Last dose on Sun06/24/23 at 0900, For 5 days 0852 (Given - Provider: Ayana Patterson RN)2000 (Given - Provider: Quyen Mccauley, SARTHAK) 816 (Given - Provider: Zoraida Springer RN) Enoxaparin (Lovenox) inj 60 mg 60 mg, Subcutaneous, Q12H, First dose on Sun06/18/23 at 0900, Until Discontinued, If patient is on warfarin, inform provider if daily INR value is 2 or greater! 0852 (Given - Provider: Ayana Patterson RN)2000 (Given - Provider: Quyen Mccauley RN) 08 (Given - Provider: Zoraida Springer RN)2110 (Given - Provider: Quyen Mccauley RN) 0845 (Given - Provider: Zoraida Springer RN) fluticasone (Flonase) nasal inhaler 2 Adams 2 Adams, Each Nostril, Daily(AM), First dose (after last modification) on Sun06/19/23 at 1930, Until Discontinued, 50 mcg / Actuation 0852 (Given - Provider: Ayana Patterson RN) 0816 (Given - Provider: Zoraida Springer RN) 0934 (Given - Provider: Zoraida Springer RN) Furosemide (Lasix) inj 80 mg 80 mg, IV Push, Q8H, First dose (after last modification) on Sun06/21/23 at 1400, Until Discontinued 0601 (Given - Provider: Isa Marmolejo RN)1403 (Given - Provider: Ayana Patterson RN)223 (Given - Provider: Quyen Mccauley RN) 06 (Given - Provider: Quyen Mccauley RN)1415 (Given - Provider: Zoraida Springer RN)2111 (Given - Provider: Quyen Mccauley, RN) 0558 (Given - Provider: Quyen Mccauley, SARTHAK) hydrALAZINE (Apresoline) inj 10 mg (COMPLETED) 10 mg, Intravenous, ONCE, On 06/23/23 at 2315, For 1 dose 2316 (Given - Provider: Quyen Mccauley, SARTHAK) insulin aspart (NovoLOG) inj 4 Units 4 Units, Subcutaneous, WITH MEALS, First dose on 06/18/23 at 1200, Until Discontinued, Hold dose if patient does not eat. 1006 (Given - Provider: Ayana Patterson RN)1357 (Given - Provider: Ayana Patterson RN)1730 (Given - Provider: Ayana Patterson RN) 0817 (Given - Provider: Zoraida Springer RN - Comment: BSBG 121)1204 (Given - Provider: Zoraida Springer RN - Comment: BSBG 120)1708 (Given - Provider: Zoraida Springer RN - Comment: BSBG 124) 0846 (Given - Provider: Zoraida Springer RN - Comment: BSBG 143)1212 (Given - Provider: Zoraida Springer RN - Comment: BSBG 180) insulin aspart (NovoLOG) inj Subcutaneous, W/MEALS AND HS, First dose on 06/18/23 at 1200, Until Discontinued, MEDIUM DOSE (Usual starting dose): Sliding Scale Correctional insulin may be given if the patient is NPO. Dose based on standard build from Insulin Calculator. Do not modify insulin doses in administration instructions! , Glucose less than 70 instructions: Obtain STAT lab blood glucose and call covering provider., Glucose 80-150 (units): 0, Glucose 151-200 (units): 2, Glucose 201-250 (units): 4, Glucose 251-300 (units): 6, Glucose greater than 300 (units): 8, Glucose greater than 300 instructions: Give suggested insulin dose and call covering provider. 0800 (Not Given - Provider: Ifrah Max RN - Reason: Parameter(s) Not Met)1231 (Given - Provider: Ayana Patterson RN)1700 (No Insulin - Provider: Ayana Patterson RN - Reason: Parameter(s) Not Met)2158 (No Insulin - Provider: Quyen Mccauley RN - Reason: Parameter(s) Not Met) 0800 (No Insulin - Provider: Zoraida Springer RN - Reason: Parameter(s) Not Met - Comment: BSBG 121)1200 (No Insulin - Provider: Zoraida Springer RN - Reason: Parameter(s) Not Met - Comment: BSBG 120)1700 (No Insulin - Provider: Zoraida Springer RN - Reason: Parameter(s) Not Met - Comment: BSBG 124)2125 (Given - Provider: Quyen Mccauley RN) 0800 (No Insulin - Provider: Zoraida Springer RN - Reason: Parameter(s) Not Met - Comment: BSBG 143)121 (Given - Provider: Zoraida Springer RN - Comment: BSBG 180) Insulin Glargine (Lantus) inj 10 Units 10 Units, Subcutaneous, HS, First dose on Sun06/18/23 at 0015, Until Discontinued, "IF DOSE IS HELD- NOTIFY COVERING PROVIDER!" 2200 (Not Given - Provider: Quyen Mccauley RN - Reason: Order Clarified - Comment: to hold per Alan [place]) 2125 (Given - Provider: Quyen Mccauley RN) levothyroxine (Levoxyl) tab 175 mcg 175 mcg, Oral, AT 0630, First dose on Sun06/18/23 at 0630, Until Discontinued 0600 (Given - Provider: Isa Marmolejo RN) 0620 (Given - Provider: Quyen Mccauley RN) 0601 (Given - Provider: Quyen Mccauley RN) LiquaCel 30 mL, Oral, DAILY NOON, First dose on Sun06/20/23 at 1515, Until Discontinued 1230 (Given - Provider: Ayana Patterson, SARTHAK) 1204 (Given - Provider: Zoraida Springer RN) 1212 (Given - Provider: Zoraida Springer RN) Lisinopril (Prinivil) tab 40 mg 40 mg, Oral, Daily(AM), First dose on Sun06/18/23 at 0900, Until Discontinued 0852 (Given - Provider: Ayana Patterson RN) 0816 (Given - Provider: Zoraida Springer RN) 0845 (Given - Provider: Zoraida Springer RN) magnesium sulfate in SWFI iv piggyback 4,000 mg (COMPLETED) 4,000 mg, IV Piggyback, ONCE, 1 dose, On Sun06/24/23 at 0800, Administer over 4 Hours 0943 (New Bag - Provider: Zoraida Springer RN)0944 (Rate Verify - Provider: Zoraida Springer RN)1157 (Paused - Provider: Zoraida Springer RN)1203 (Restarted - Provider: Zoraida Springer RN)1353 (Stopped - Provider: Zoraida Springer RN) Miconazole Nitrate (Remedy) powder Topical, BID (.AM/PM), First dose on Sun06/18/23 at 0900, Until Discontinued, Apply to abdominal folds 0856 (Given - Provider: Ayana Patterson RN)2240 (Given - Provider: Quyen Mccauley RN) 0816 (Given - Provider: Zoraida Springer RN)2112 (Given - Provider: Quyen Mccauley, SARTHAK) 0849 (Given - Provider: Zoraida Springer RN) omeprazole (PriLOSEC) cap 20 mg 20 mg, Oral, BEFORE BREAKFAST, First dose on Sun06/18/23 at 0745, Until Discontinued, This med should NOT be Crushed or Chewed 0852 (Given - Provider: Ayana Patterson RN) 0817 (Given - Provider: Zoraida Springer RN) 0748 (Given - Provider: Zoraida Springer RN) Oral Hygiene: Mouth Swab with dentifrice Oral, HS, First dose on Sun06/18/23 at 0900, Until Discontinued, To be used with 1.5% hydrogen peroxide solution or 0.05% cetylpyridium chloride oral rinse 1007 (Given - Provider: Ayana Patterson RN)1300 (Given - Provider: Ayana Patterson RN)1800 (Given - Provider: Ayana Patterson RN)2200 (Given - Provider: Quyen Mccauley RN) 0830 (Given - Provider: Zoraida Springer RN)1300 (Given - Provider: Zoraida Springer RN)1815 (Given - Provider: Zoraida Springer RN)2200 (Given - Provider: uQyen Mccauley, SARTHAK) 0935 (Given - Provider: Zoraida Springer RN)1300 (Due) oxygen GAS Inhalation, OXYGEN, First dose on 06/18/23 at 0000, Until Discontinued, Device/Managed by: Low Flow Device, Goal SPO2 (%): 91-95, Starting Device: Nasal Cannula, Initial Flow Rate (LPM): 2, Lowest Support: Nasal Cannula: Flow 0-6 LPM. Titrate up/down by 1 LPM., Higher Support: Non-Rebreather (NRB) Mask: Minimum of 10 LPM. Titrate to maintain bag inflation., Titration Interval: Q2 minutes and as needed., Notify Provider: For sudden DECREASE in resting SPO2 to less than 85% and when escalating delivery device., Should be on 2L at baseline Wean Oxygen when the oxygen saturation is greater than or equal to 93% to lowest support of 2L. 0000 (Oxygen On - Provider: Isa Marmolejo RN)0800 (Oxygen On - Provider: Ayana Patterson, SARTHAK)1600 (Oxygen On - Provider: Ayana Patterson, SARTHAK) 0000 (Oxygen On - Provider: Quyen Mccauley, SARTHAK)0800 (Oxygen On - Provider: Zoraida Springer RN - Comment: 97% on 2L)1600 (Oxygen On - Provider: Zoraida Springer RN - Comment: 98% on 2L) 0000 (Oxygen On - Provider: Quyen Mccauley, SARTHAK)0800 (Oxygen On - Provider: Zoraida Springer RN - Comment: 100 % on 2L) potassium chloride ER tab 40 mEq (CANCELED) 40 mEq, Oral, Daily(AM), First dose on 06/23/23 at 0900, Until Discontinued, This med should NOT be Crushed or Chewed 0852 (Given - Provider: Ayana Patterson RN) potassium chloride ER tab 40 mEq 40 mEq, Oral, BID (.AM/PM), First dose (after last modification) on 06/24/23 at 0900, Until Discontinued, This med should NOT be Crushed or Chewed 0817 (Given - Provider: Zoraida Springer RN)211 (Given - Provider: Quyen Mccauley RN) 0845 (Given - Provider: Zoraida Springer RN) Simvastatin (Zocor) tab 20 mg 20 mg, Oral, Daily(AM), First dose on Sun06/18/23 at 0900, Until Discontinued 0852 (Given - Provider: Ayana Patterson RN) 0818 (Given - Provider: Zoraida Springer, SARTHAK) 0845 (Given - Provider: Zoraida Springer RN) sodium chloride 0.9 % flush central line 10 mL 10 mL, IV Push, Q8H, First dose on Sun06/18/23 at 1400, Until Discontinued, TO UNUSED PORTS Do not flush if lock, PICC, or central line not in place; IV infusing or unable to flush. 0610 (Given - Provider: Isa Marmolejo RN)1400 (Given - Provider: Ayana Patterson RN)2200 (Given - Provider: Quyen Mccauley RN) 0622 (Given - Provider: Quyen Mccauley RN)1400 (Given - Provider: Zoraida Springer RN)211 (Given - Provider: Quyen Mccauley RN) 0600 (Given - Provider: Quyen Mccauley RN) PRN Medication Order 06/23/2023 06/24/2023 06/25/2023 Acetaminophen (Tylenol) tab 650 mg 650 mg, Oral, Q4H PRN Pain, Mild, Pain, Moderate, Headache, Fever >38C(100.5F), Starting on Sun06/18/23 at 1015, Until Sun06/25/23 at 1708, Maximum of 4 grams (4000 mg) per day. 2320 (Given - Provider: Quyen Mccauley RN) albuterol (VENTOLIN HFA/PROVENTIL HFA) inhaler 2 Puff, Inhalation, Q6H PRN Dyspnea, Starting on Sun06/17/23 at 2132, Until Sun06/25/23 at 1708, Shake can for 10 seconds before each puff SEND INHALER WITH PATIENT! WASTE INFO ( IF NOT SENT HOME WITH PATIENT) : Return unused medication to pharmacy in zip lock bag for disposal into black container labeled SP. Benzonatate (Gilberto Resendiz) cap 100 mg 100 mg, Oral, Q4H PRN Cough, Starting on Sun06/19/23 at 1348, Until Sun06/25/23 at 1708, This med should NOT be Crushed or Chewed 0615 (Given - Provider: Isa Marmolejo RN) Bisacodyl (Dulcolax) tab 5 mg 5 mg, Oral, DAILY PRN If constipation not relieved by polyethylene glycol, Starting on Sun06/18/23 at 1044, Until Sun06/25/23 at 1708, This med should NOT be Crushed or Chewed calcium CARBonate (Tums E-X) tab CHEW 750 mg 750 mg, Oral, Q6H PRN Indigestion, Nausea, Starting on Sun06/24/23 at 1253, Until Sun06/25/23 at 1708 dextrose 50% inj 25 mL 25 mL, IV Push, PRN Hypoglycemia, Other, For blood glucose 54 - 69 mg/dL or 70 - 100 mg/dL with symptoms AND patient is unresponsive, NPO, OR unable to swallow, Starting on Sun06/18/23 at 1012, Until Sun06/25/23 at 1708, Administer IV. Recheck blood glucose after 15 minutes. Notify provider. dextrose 50% inj 50 mL 50 mL, IV Push, PRN Hypoglycemia, Other, For blood glucose below 54 mg/dL AND patient unresponsive, NPO, OR unable to swallow, Starting on Sun06/18/23 at 1012, Until Sun06/25/23 at 1708, Administer IV. Recheck blood glucose in 15 minutes. Notify provider. glucagon (Glucagen) inj 1 mg 1 mg, Intramuscular, PRN Hypoglycemia, Other, If patient is unresponsive, or NPO and has no IV access, Starting on Sun06/18/23 at 1012, Until Sun06/25/23 at 1708, NPO and no IV access with either 1) blood glucose less than 100 mg/dL and symptomatic OR 2) blood glucose less than 70 mg/dL and asymptomatic Glucose (Glutose 15) 40 % gel 15 g of glucose 15 g of glucose, Oral, PRN Hypoglycemia (low sugar), Other, For blood glucose 54 - 69 mg/dL or 70 - 100 mg/dL with symptoms AND patient alert WITH difficulty chewing/swallowing, Starting on Sun06/18/23 at 1012, Until Sun06/25/23 at 1708, Administer gel. Recheck blood glucose after 15 minutes. Notify provider. 37.5 gram tube = 15 grams glucose = 1 each Glucose (Glutose 15) 40 % gel 30 g of glucose 30 g of glucose, Oral, PRN Hypoglycemia (low sugar), Other, For blood glucose below 54 mg/dL AND patient alert WITH difficulty chewing/swallowing, Starting on Sun06/18/23 at 1012, Until Sun06/25/23 at 1708, Administer gel. Recheck blood glucose after 15 minutes. Notify provider. 37.5 gram tube = 15 grams glucose = 1 each glucose chew tab 16 g 16 g, Oral, PRN Hypoglycemia, Other, For blood glucose 54 - 69 mg/dL or 70 - 100 mg/dL with symptoms and patient alert without difficulty chewing/swallowing., Starting on Sun06/18/23 at 1012, Until Sun06/25/23 at 1708 hydrOXYzine HCl tab 50 mg 50 mg, Oral, Q8H PRN Anxiety, Starting on Sun06/17/23 at 2131, Until Sun06/25/23 at 1708 Menthol (Hornick) cough drop 1 Lozenge 1 Lozenge, Oral, Q2H PRN Sore throat, Starting on Sun06/18/23 at 1932, Until Sun06/25/23 at 1708 Nitroglycerin (Nitrostat) sl tab 0.4 mg 0.4 mg, Sublingual, Q5 MIN PRN Pain, Chest, Starting on Sun06/17/23 at 2137, Until Sun06/25/23 at 1708, Every 5 minutes for chest pain - may repeat 3 times. Remove seal from bottle if opened. ondansetron (Zofran) inj 4 mg 4 mg, IV Push, Q6H PRN Nausea, Starting on Sun06/17/23 at 2137, Until Sun06/25/23 at 1708 2000 (Given - Provider: Quyen Mccauley RN) Polyethylene Glycol 3350 (Miralax) oral powder 17 g 17 g, Oral, DAILY PRN If constipation not relieved by docusate-senna, Starting on Sun06/18/23 at 1048, Until Sun06/25/23 at 1708, Mix in 8 oz of water, juice, soda, coffee, or tea. 0600 (Not Given - Provider: Quyen Mccauley RN - Reason: Refused-Notify Provider - Comment: refused- states it makes her nauseous; pt given prune juice per request) senna-docusate (Senokot-S) 1 Tablet 1 Tablet, Oral, BID PRN Constipation, Starting on 06/17/23 at 2134, Until 06/25/23 at 1708 2000 (Given - Provider: Quyen Mccauley RN) trimethobenzamide (Tigan) inj 100 mg 100 mg, Intramuscular, QID PRN Nausea, Vomiting, Starting on 06/24/23 at 1245, Until 06/25/23 at 1708 documented in this encounter Additional Health Concerns Infection Onset Date Last Indicated Resolved Time Respiratory Rule-Out 06/17/2023 06/17/2023 024 8:01 PM [...] Documents on File Type Date Recorded Patient Clinical Laboratory Manager Expl anation POLST 06/17/2023 [place] DERS [...] Advance Directives occurred with: Patient Care Teams Content Development Specialist Relationship Specialty Start Date End Date Natali Langston DO [facility] [address] [address] PCP - General Family Medicine 06/18/14 documented as of this encounter
--- OUTSIDE RECORDS SUMMARY | 2023-07-28 23:03 | External Medical Summary ---
Author Name Unknown Address Unknown Organization : Laboratory Report Ordering Provider Test Date Status AILEEN KIDD 06/24/2023 16:41:49 Final Observation Date Value Abnormality Reference (Units ) Status Glucose Point of Care 06/24/2023 16:41:49 124 Above high normal 70-120 (mg/dL) Final Performing Location
--- OUTSIDE RECORDS SUMMARY | 2023-07-28 23:03 | External Medical Summary ---
Author Name Unknown Address Unknown Organization K1F:[facility] - [address] [place] [address] Laboratory Report Ordering Provider Test Date Status MAIA YADAV 06/24/2023 04:31:00 Final Observation Date Value Abnormality Reference (Units ) Status WBC, Total 06/24/2023 04:31:00 9.05 4.00-10.80 (K/uL) Final RBC 06/24/2023 04:31:00 3.09 3.85-5.15 (M/uL) Final Hemoglobin 06/24/2023 04:31:00 8.8 Below low normal 12.0-15.3 (g/dL) Final HCT 06/24/2023 04:31:00 27.2 Below low normal 36.0-45.2 (%) Final MCV 06/24/2023 04:31:00 88.0 81.5-97.5 (fL) Final MCH 06/24/2023 04:31:00 28.5 27.0-34.0 (pg) Final MCHC 06/24/2023 04:31:00 32.4 32.0-36.0 (g/dL) Final RDW 06/24/2023 04:31:00 18.1 11.5-15.5 (%) Final Platelets 06/24/2023 04:31:00 312 140-400 (K/uL) Final MPV 06/24/2023 04:31:00 11.5 6.6-11.1 (fL) Final Nucleated erythrocytes/100 leukocytes [Ratio] in Blood by Automated count 06/24/2023 04:31:00 0 <=0 (/100 WBCs) Final Performing Location [facility] - [address] [place] [address]
--- OUTSIDE RECORDS SUMMARY | 2023-07-28 23:03 | External Medical Summary ---
Author Name Unknown Address Unknown Organization K1F:[facility] - [address] [place] [address] Laboratory Report Ordering Provider Test Date Status MAIA YADAV 06/25/2023 06:11:00 Final Observation Date Value Abnormality Reference (Units ) Status Phosphate 06/25/2023 06:11:00 3.3 2.5-4.8 (m g/dL) Final Performing Location [facility] - [address] [place] [address]
--- OUTSIDE RECORDS SUMMARY | 2023-07-28 23:03 | External Medical Summary ---
Author Name Unknown Address Unknown Organization : Laboratory Report Ordering Provider Test Date Status AILEEN KIDD 06/23/2023 11:37:00 Final Observation Date Value Abnormality Reference (Units ) Status Glucose Point of Care 06/23/2023 11:37:00 158 Above high normal 70-120 (mg/dL) Final Performing Location
--- OUTSIDE RECORDS SUMMARY | 2023-07-28 23:03 | External Medical Summary ---
Author Name Unknown Address Unknown Organization : Laboratory Report Ordering Provider Test Date Status AILEEN KIDD 06/23/2023 16:45:31 Final Observation Date Value Abnormality Reference (Units ) Status Glucose Point of Care 06/23/2023 16:45:31 117 70-120 (mg/dL) Final Performing Location
--- OUTSIDE RECORDS SUMMARY | 2023-07-28 23:03 | External Medical Summary ---
Author Name Unknown Address Unknown Organization : Laboratory Report Ordering Provider Test Date Status AILEEN KIDD 06/24/2023 21:12:03 Final Observation Date Value Abnormality Reference (Units ) Status Glucose Point of Care 06/24/2023 21:12:03 175 Above high normal 70-120 (mg/dL) Final Performing Location
--- OUTSIDE RECORDS SUMMARY | 2023-07-28 23:03 | External Medical Summary ---
Author Name Unknown Address Unknown Organization K1F:LABORATORY [facility] - [address] [place] [address] Laboratory Report Ordering Provider Test Date Status MAIA YADAV 06/25/2023 06:11:00 Final Observation Date Value Abnormality Reference (Units ) Status WBC, Total 06/25/2023 06:11:00 9.34 4.00-10.80 (K/uL) Final RBC 06/25/2023 06:11:00 2.94 3.85-5.15 (M/uL) Final Hemoglobin 06/25/2023 06:11:00 8.3 Below low normal 12.0-15.3 (g/dL) Final HCT 06/25/2023 06:11:00 26.4 Below low normal 36.0-45.2 (%) Final MCV 06/25/2023 06:11:00 89.8 81.5-97.5 (fL) Final MCH 06/25/2023 06:11:00 28.2 27.0-34.0 (pg) Final MCHC 06/25/2023 06:11:00 31.4 32.0-36.0 (g/dL) Final RDW 06/25/2023 06:11:00 17.9 11.5-15.5 (%) Final Platelets 06/25/2023 06:11:00 302 140-400 (K/uL) Final MPV 06/25/2023 06:11:00 11.3 6.6-11.1 (fL) Final Nucleated erythrocytes/100 leukocytes [Ratio] in Blood by Automated count 06/25/2023 06:11:00 0 <=0 (/100 WBCs) Final Performing Location LAB[facility]ATORY [facility] - [address] [place] [address]
--- OUTSIDE RECORDS SUMMARY | 2023-07-28 23:03 | External Medical Summary ---
Author Name Unknown Address Unknown Organization K1F:[facility] - [address] [place] [address] Laboratory Report Ordering Provider Test Date Status MAIA YADAV 06/24/2023 04:31:00 Final Observation Date Value Abnormality Reference (Units ) Status Magnesium 06/24/2023 04:31:00 1.2 Below low normal 1.5 -2.6 (mg/dL) Final Performing Location LABORATORY [facility] - [address] [place] [address]
--- OUTSIDE RECORDS SUMMARY | 2023-07-28 23:03 | External Medical Summary ---
Author Name Unknown Address Unknown Organization K1F:LAB[facility]ATORY [facility] - [address] [place] [address] Laboratory Report Ordering Provider Test Date Status MAIA YADAV 06/25/2023 06:11:00 Final Observation Date Value Abnormality Reference (Units ) Status Magnesium 06/25/2023 06:11:00 1.7 1.5-2.6 (m g/dL) Final Performing Location LABORATORY [facility] - [address] [place] [address]
--- OUTSIDE RECORDS SUMMARY | 2023-07-28 23:04 | External Medical Summary ---
Author Name Unknown Address Unknown Organization : Laboratory Report Ordering Provider Test Date Status ANTONIO ATKINS 06/21/2023 11:27:01 Final Observation Date Value Abnormality Reference (Units ) Status Glucose Point of Care 06/21/2023 11:27:01 201 Above high normal 70-120 (mg/dL) Final Performing Location
--- OUTSIDE RECORDS SUMMARY | 2023-07-28 23:04 | External Medical Summary ---
Author Name Unknown Address Unknown Organization K1F:LAB[facility]ATORY [facility] - [address] [place] [address] Laboratory Report Ordering Provider Test Date Status JUNIOR CHOWDHURY 06/18/2023 09:38:42 Final Observation Date Value Abnormality Reference (Units ) Status Color of Urine by Auto 06/18/2023 09:38:42 Yellow Light Yellow, Yellow, Dark Yellow Final Clarity, Urine 06/18/2023 09:38:42 Clear Clear Final Glucose [Mass/volume] in Urine by Automated test strip 06/18/2023 09:38:42 >=1000 Abnormal Negative (mg/dL) Final Bilirubin.total [Presence] in Urine by Automated test strip 06/18/2023 09:38:42 Negative Negative Final Ketones [Mass/volume] in Urine by Automated test strip 06/18/2023 09:38:42 Negative Negative (mg/dL) Final Specific gravity, Urine 06/18/2023 09:38:42 1.020 1.003-1.030 Final Hemoglobin [Presence] in Urine by Automated test strip 06/18/2023 09:38:42 Moderate Abnormal Negative Final pH, Urine 06/18/2023 09:38:42 6.5 5.0-7.5 (Units) Final Protein [Mass/volume] in Urine by Automated test strip 06/18/2023 09:38:42 >=300 Abnormal Negative (mg/dL) Final Urobilinogen [Mass/volume] in Urine by Automated test strip 06/18/2023 09:38:42 0.2 0.2, 1.0 (mg/dL) Final Nitrite [Presence] in Urine by Automated test strip 06/18/2023 09:38:42 Negative Negative Final Leukocyte esterase [Presence] in Urine by Automated test strip 06/18/2023 09:38:42 Negative Negative Final RBC, Urine 06/18/2023 09:38:42 30-49 Abnormal 0-2 (/HPF) Final WBC, Urine 06/18/2023 09:38:42 3-5 Abnormal 0-2 (/HPF) Final Bacteria [#/area] in Urine sediment by Microscopy high power field 06/18/2023 09:38:42 101-150 Abnormal 0-25 (/HPF) Final Epithelial cells.squamous [#/area] in Urine sediment by Microscopy high power field 06/18/2023 09:38:42 Many Abnormal None (/HPF) Final Yeast [#/area] in Urine sediment by Microscopy high power field 06/18/2023 09:38:42 Present Abnormal None (/HPF) Final CULTURE, URINE - [facility] 06/18/2023 09:38:42 Final Quantitative urine culture t o be performed Performing Location LABORATORY [facility] - [address] [place] [address]
--- OUTSIDE RECORDS SUMMARY | 2023-07-28 23:04 | External Medical Summary ---
Author Name Unknown Address Unknown Organization K01:[place] [place] [address] [facility] [address] [place] [address] Laboratory Report Ordering Provider Test Date Status CASTILLO SANCHEZ 06/18/2023 00:50:25 Final Observation Date Value Abnormality Reference (Units ) Status Methicillin resistant Staphylococcus aureus (MRSA) DNA [Presence] in Nose by BLAISE with probe detection 06/18/2023 00:50:25 Negative Negative Final No Methicillin resistant Sta phylococcus aureus detected by PCR (amplified probe). Performing Location [facility] [place] [address] [place] [address]
--- OUTSIDE RECORDS SUMMARY | 2023-07-28 23:04 | External Medical Summary ---
Author Name Unknown Address Unknown Organization K01:[facility] [place] [address] [facility] [place] [address] Laboratory Report Ordering Provider Test Date Status MAIA YADAV 06/21/2023 03:19:00 Final Observation Date Value Abnormality Reference (Units ) Status Ferritin 06/21/2023 03:19:00 1050 Above high normal 13 -150 (ng/mL) Final Postmenopausal women have hi gher ferritin levels than pre-menopausal women. The above reference interval is based on pre-menopausal women. Performing Location LABORATORY [facility] - [address] [place] [address]
--- OUTSIDE RECORDS SUMMARY | 2023-07-28 23:04 | External Medical Summary ---
Author Name Unknown Address Unknown Organization K1F:LABORATORY [facility] - [address] [place] [address] Laboratory Report Ordering Provider Test Date Status MAIA YADAV 06/20/2023 05:21:00 Final Observation Date Value Abnormality Reference (Units ) Status WBC, Total 06/20/2023 05:21:00 10.70 4.00-10.80 (K/uL) Final RBC 06/20/2023 05:21:00 2.93 3.85-5.15 (M/uL) Final Hemoglobin 06/20/2023 05:21:00 8.3 Below low normal 12.0-15.3 (g/dL) Final HCT 06/20/2023 05:21:00 27.0 Below low normal 36.0-45.2 (%) Final MCV 06/20/2023 05:21:00 92.2 81.5-97.5 (fL) Final MCH 06/20/2023 05:21:00 28.3 27.0-34.0 (pg) Final MCHC 06/20/2023 05:21:00 30.7 32.0-36.0 (g/dL) Final RDW 06/20/2023 05:21:00 19.1 11.5-15.5 (%) Final Platelets 06/20/2023 05:21:00 271 140-400 (K/uL) Final MPV 06/20/2023 05:21:00 12.4 6.6-11.1 (fL) Final Nucleated erythrocytes/100 leukocytes [Ratio] in Blood by Automated count 06/20/2023 05:21:00 0 <=0 (/100 WBCs) Final Performing Location LAB[facility]ATORY [facility] - [address] [place] [address]
--- OUTSIDE RECORDS SUMMARY | 2023-07-28 23:04 | External Medical Summary ---
Author Name Unknown Address Unknown Organization : Laboratory Report Ordering Provider Test Date Status ERNESTO RAMOS 06/19/2023 11:35:44 Final Observation Date Value Abnormality Reference (Units ) Status Glucose Point of Care 06/19/2023 11:35:44 215 Above high normal 70-120 (mg/dL) Final Performing Location
--- OUTSIDE RECORDS SUMMARY | 2023-07-28 23:04 | External Medical Summary ---
Author Name Unknown Address Unknown Organization : Laboratory Report Ordering Provider Test Date Status ANTONIO ATKINS 06/21/2023 16:39:24 Final Observation Date Value Abnormality Reference (Units ) Status Glucose Point of Care 06/21/2023 16:39:24 150 Above high normal 70-120 (mg/dL) Final Performing Location
--- OUTSIDE RECORDS SUMMARY | 2023-07-28 23:04 | External Medical Summary ---
Author Name Unknown Address Unknown Organization K1F:[facility] - [address] [place] [address] Laboratory Report Ordering Provider Test Date Status MAIA YADAV 06/21/2023 03:19:00 Final Observation Date Value Abnormality Reference (Units ) Status Magnesium 06/21/2023 03:19:00 1.7 1.5-2.6 (m g/dL) Final Performing Location LABORATORY [facility] - [address] [place] [address]
--- OUTSIDE RECORDS SUMMARY | 2023-07-28 23:04 | External Medical Summary ---
Author Name Unknown Address Unknown Organization : Laboratory Report Ordering Provider Test Date Status ANTONIO ATKINS 06/20/2023 16:58:02 Final Observation Date Value Abnormality Reference (Units ) Status Glucose Point of Care 06/20/2023 16:58:02 164 Above high normal 70-120 (mg/dL) Final Performing Location
--- OUTSIDE RECORDS SUMMARY | 2023-07-28 23:04 | External Medical Summary ---
Author Name Unknown Address Unknown Organization : Laboratory Report Ordering Provider Test Date Status ANTONIO ATKINS 06/21/2023 22:04:08 Final Observation Date Value Abnormality Reference (Units ) Status Glucose Point of Care 06/21/2023 22:04:08 185 Above high normal 70-120 (mg/dL) Final Performing Location
--- OUTSIDE RECORDS SUMMARY | 2023-07-28 23:04 | External Medical Summary ---
Author Name Unknown Address Unknown Organization : Laboratory Report Ordering Provider Test Date Status ERNESTO RAMOS 06/19/2023 16:24:30 Final Observation Date Value Abnormality Reference (Units ) Status Glucose Point of Care 06/19/2023 16:24:30 237 Above high normal 70-120 (mg/dL) Final Performing Location
--- OUTSIDE RECORDS SUMMARY | 2023-07-28 23:04 | External Medical Summary ---
Author Name Unknown Address Unknown Organization K1F:LABORATORY [facility] - [address] [place] [address] Laboratory Report Ordering Provider Test Date Status CASTILLO SANCHEZ 06/18/2023 03:55:00 Final Observation Date Value Abnormality Reference (Units ) Status BUN 06/18/2023 03:55:00 32 Above high normal 6-20 (mg/dL) Final Creatinine 06/18/2023 03:55:00 1.9 Above high normal 0.5-1.0 (mg/dL) Final Glomerular filtration rate/1.73 sq M.predicted [Volume Rate/Area] in Serum, Plasma or Blood by Creatinine-based formula (CKD-EPI) 06/18/2023 03:55:00 29 Below low normal >=60 (mL/min) Final eGFR is calculated based on the CKD-EPI 2020 equation Sodium 06/18/2023 03:55:00 135 135-146 (m mol/L) Final Potassium 06/18/2023 03:55:00 3.0 Below low normal 3.5 -5.1 (mmol/L) Final Cl 06/18/2023 03:55:00 99 98-107 (mm ol/L) Final CO2 06/18/2023 03:55:00 23 22-32 (mmo l/L) Final Anion gap 06/18/2023 03:55:00 13 7-15 (mmol /L) Final Glucose 06/18/2023 03:55:00 306 Above high normal 70 -120 (mg/dL) Final Calcium 06/18/2023 03:55:00 7.9 Below low normal 8.4 -10.2 (mg/dL) Final Performing Location LABORATORY [facility] - [address] [place] [address]
--- OUTSIDE RECORDS SUMMARY | 2023-07-28 23:04 | External Medical Summary ---
Author Name Unknown Address Unknown Organization K01:LAB[facility]ATORY [facility] [place] - [address] [place] [address] Laboratory Report Ordering Provider Test Date Status DANIELCASTILLO 06/18/2023 09:38:42 Final Observation Date Value Abnormality Reference (Units) Status Bacteria identified in Specimen by Culture 06/18/2023 09:38:42 No significant growth Final Test: Culture, Urine, Quanti tative
Specimen Source: Urine, Clean Catch
Specimen Type: Urine
Specimen Date: 06/18/2023 9:38 AM
Result Date: 06/19/2023 10:51 AM
Result Status: Final result
Resulting Lab: LABORATORY [facility] [place]
[address]
[place] [address]

CULTURE

No significant growth

null Performing Location LABORATORY [facility] [place] - [address] [place] [address]
--- OUTSIDE RECORDS SUMMARY | 2023-07-28 23:04 | External Medical Summary ---
Author Name Unknown Address Unknown Organization K1F:LABORATORY [facility] - [address] [place] [address] Laboratory Report Ordering Provider Test Date Status CASTILLO SANCHEZ 06/18/2023 03:55:00 Final Observation Date Value Abnormality Reference (Units ) Status WBC, Total 06/18/2023 03:55:00 9.21 4.00-10.80 (K/uL) Final RBC 06/18/2023 03:55:00 2.64 3.85-5.15 (M/uL) Final Hemoglobin 06/18/2023 03:55:00 7.6 Below low normal 12.0-15.3 (g/dL) Final HCT 06/18/2023 03:55:00 24.3 Below low normal 36.0-45.2 (%) Final MCV 06/18/2023 03:55:00 92.0 81.5-97.5 (fL) Final MCH 06/18/2023 03:55:00 28.8 27.0-34.0 (pg) Final MCHC 06/18/2023 03:55:00 31.3 32.0-36.0 (g/dL) Final RDW 06/18/2023 03:55:00 18.8 11.5-15.5 (%) Final Platelets 06/18/2023 03:55:00 225 140-400 (K/uL) Final MPV 06/18/2023 03:55:00 11.4 6.6-11.1 (fL) Final Nucleated erythrocytes/100 leukocytes [Ratio] in Blood by Automated count 06/18/2023 03:55:00 0 <=0 (/100 WBCs) Final Performing Location LABORATORY [facility] - [address] [place] [address]
--- OUTSIDE RECORDS SUMMARY | 2023-07-28 23:04 | External Medical Summary ---
Author Name Unknown Address Unknown Organization K1F:LAB[facility]ATORY [facility] - [address] [place] [address] Laboratory Report Ordering Provider Test Date Status MAIA YADAV 06/21/2023 03:19:00 Final Observation Date Value Abnormality Reference (Units ) Status Phosphate 06/21/2023 03:19:00 3.3 2.5-4.8 (m g/dL) Final Performing Location LABORATORY [facility] - [address] [place] [address]
--- OUTSIDE RECORDS SUMMARY | 2023-07-28 23:04 | External Medical Summary ---
Author Name Unknown Address Unknown Organization : Laboratory Report Ordering Provider Test Date Status AILEEN KIDD 06/22/2023 16:41:28 Final Observation Date Value Abnormality Reference (Units ) Status Glucose Point of Care 06/22/2023 16:41:28 125 Above high normal 70-120 (mg/dL) Final Performing Location
--- OUTSIDE RECORDS SUMMARY | 2023-07-28 23:04 | External Medical Summary ---
Author Name Unknown Address Unknown Organization K1F:[facility] - [address] [place] [address] Laboratory Report Ordering Provider Test Date Status ERNESTO RAMOS 06/19/2023 06:17:00 Final Observation Date Value Abnormality Reference (Units ) Status Magnesium 06/19/2023 06:17:00 1.4 Below low normal 1.5 -2.6 (mg/dL) Final Performing Location LABORATORY [facility] - [address] [place] [address]
--- OUTSIDE RECORDS SUMMARY | 2023-07-28 23:04 | External Medical Summary ---
Author Name Unknown Address Unknown Organization K1F:LAB[facility]ATORY [facility] - [address] [place] [address] Laboratory Report Ordering Provider Test Date Status MAIA YADAV 06/23/2023 03:37:00 Final Observation Date Value Abnormality Reference (Units ) Status Phosphate 06/23/2023 03:37:00 3.4 2.5-4.8 (m g/dL) Final Performing Location LABORATORY [facility] - [address] [place] [address]
--- OUTSIDE RECORDS SUMMARY | 2023-07-28 23:04 | External Medical Summary ---
Author Name Unknown Address Unknown Organization K1F:LABORATORY [facility] - [address] [place] [address] Laboratory Report Ordering Provider Test Date Status MAIA YADAV 06/22/2023 05:16:00 Final Observation Date Value Abnormality Reference (Units ) Status WBC, Total 06/22/2023 05:16:00 8.89 4.00-10.80 (K/uL) Final RBC 06/22/2023 05:16:00 2.93 3.85-5.15 (M/uL) Final Hemoglobin 06/22/2023 05:16:00 8.1 Below low normal 12.0-15.3 (g/dL) Final HCT 06/22/2023 05:16:00 26.3 Below low normal 36.0-45.2 (%) Final MCV 06/22/2023 05:16:00 89.8 81.5-97.5 (fL) Final MCH 06/22/2023 05:16:00 27.6 27.0-34.0 (pg) Final MCHC 06/22/2023 05:16:00 30.8 32.0-36.0 (g/dL) Final RDW 06/22/2023 05:16:00 18.6 11.5-15.5 (%) Final Platelets 06/22/2023 05:16:00 283 140-400 (K/uL) Final MPV 06/22/2023 05:16:00 11.3 6.6-11.1 (fL) Final Nucleated erythrocytes/100 leukocytes [Ratio] in Blood by Automated count 06/22/2023 05:16:00 0 <=0 (/100 WBCs) Final Performing Location LABORATORY [facility] - [address] [place] [address]
--- OUTSIDE RECORDS SUMMARY | 2023-07-28 23:04 | External Medical Summary ---
Author Name Unknown Address Unknown Organization K1F:LABORATORY [facility] - [address] [place] [address] Laboratory Report Ordering Provider Test Date Status MAIA YADAV 06/23/2023 03:37:00 Final Observation Date Value Abnormality Reference (Units ) Status WBC, Total 06/23/2023 03:37:00 8.51 4.00-10.80 (K/uL) Final RBC 06/23/2023 03:37:00 2.83 3.85-5.15 (M/uL) Final Hemoglobin 06/23/2023 03:37:00 8.1 Below low normal 12.0-15.3 (g/dL) Final HCT 06/23/2023 03:37:00 24.9 Below low normal 36.0-45.2 (%) Final MCV 06/23/2023 03:37:00 88.0 81.5-97.5 (fL) Final MCH 06/23/2023 03:37:00 28.6 27.0-34.0 (pg) Final MCHC 06/23/2023 03:37:00 32.5 32.0-36.0 (g/dL) Final RDW 06/23/2023 03:37:00 18.2 11.5-15.5 (%) Final Platelets 06/23/2023 03:37:00 289 140-400 (K/uL) Final MPV 06/23/2023 03:37:00 11.9 6.6-11.1 (fL) Final Nucleated erythrocytes/100 leukocytes [Ratio] in Blood by Automated count 06/23/2023 03:37:00 0 <=0 (/100 WBCs) Final Performing Location LABORATORY [facility] - [address] [place] [address]
--- OUTSIDE RECORDS SUMMARY | 2023-07-28 23:04 | External Medical Summary ---
Author Name Unknown Address Unknown Organization : Laboratory Report Ordering Provider Test Date Status AILEEN KIDD 06/22/2023 08:03:59 Final Observation Date Value Abnormality Reference (Units ) Status Glucose Point of Care 06/22/2023 08:03:59 141 Above high normal 70-120 (mg/dL) Final Performing Location
--- OUTSIDE RECORDS SUMMARY | 2023-07-28 23:04 | External Medical Summary ---
Author Name Unknown Address Unknown Organization K1F:LABORATORY [facility] - [address] [place] [address] Laboratory Report Ordering Provider Test Date Status MAIA YADAV 06/21/2023 03:19:00 Final Observation Date Value Abnormality Reference (Units ) Status BUN 06/21/2023 03:19:00 32 Above high normal 6-20 (mg/dL) Final Creatinine 06/21/2023 03:19:00 2.0 Above high normal 0.5-1.0 (mg/dL) Final Glomerular filtration rate/1.73 sq M.predicted [Volume Rate/Area] in Serum, Plasma or Blood by Creatinine-based formula (CKD-EPI) 06/21/2023 03:19:00 28 Below low normal >=60 (mL/min) Final eGFR is calculated based on the CKD-EPI 2020 equation Sodium 06/21/2023 03:19:00 132 Below low normal 135 -146 (mmol/L) Final Potassium 06/21/2023 03:19:00 4.1 3.5-5.1 (m mol/L) Final Cl 06/21/2023 03:19:00 99 98-107 (mm ol/L) Final CO2 06/21/2023 03:19:00 21 Below low normal 22- 32 (mmol/L) Final Anion gap 06/21/2023 03:19:00 12 7-15 (mmol /L) Final Glucose 06/21/2023 03:19:00 128 Above high normal 70 -120 (mg/dL) Final Albumin 06/21/2023 03:19:00 2.1 Below low normal 3.8 -5.0 (g/dL) Final AST (Aspartate aminotransferase) 06/21/2023 03:19:00 46 Above high normal 10-35 (U/L) Final Result may be falsely elevat ed due to hemolysis. Alk Phos 06/21/2023 03:19:00 290 Above high normal 35 -130 (U/L) Final Bilirubin, Total 06/21/2023 03:19:00 0.2 <=1 .2 (mg/dL) Final Calcium 06/21/2023 03:19:00 8.4 8.4-10.2 ( mg/dL) Final Protein 06/21/2023 03:19:00 6.1 6.0-8.3 (g /dL) Final ALT (Alanine aminotransferase) 06/21/2023 03:19:00 <5 Below low normal 10-35 (U/L) Final Performing Location LABORATORY [facility] - [facility] [place] [address]
--- OUTSIDE RECORDS SUMMARY | 2023-07-28 23:04 | External Medical Summary ---
Author Name Unknown Address Unknown Organization K1F:LABORATORY [facility] - [address] [place] [address] Laboratory Report Ordering Provider Test Date Status ERNESTO RAMOS 06/20/2023 05:25:00 Final Observation Date Value Abnormality Reference (Units ) Status Magnesium 06/20/2023 05:25:00 1.9 1.5-2.6 (m g/dL) Final Performing Location LABORATORY [facility] - [address] [place] [address]
--- OUTSIDE RECORDS SUMMARY | 2023-07-28 23:04 | External Medical Summary ---
Author Name Unknown Address Unknown Organization K1F:LABORATORY [facility] - [address] [place] [address] Laboratory Report Ordering Provider Test Date Status MAIA YADAV 06/22/2023 05:16:00 Final Observation Date Value Abnormality Reference (Units ) Status Magnesium 06/22/2023 05:16:00 1.5 1.5-2.6 (m g/dL) Final Performing Location LABORATORY [facility] - [address] [place] [address]
--- OUTSIDE RECORDS SUMMARY | 2023-07-28 23:04 | External Medical Summary ---
Author Name Unknown Address Unknown Organization K1F:LABORATORY [facility] - [address] [place] [address] Laboratory Report Ordering Provider Test Date Status MAIA YADAV 06/23/2023 03:37:00 Final Observation Date Value Abnormality Reference (Units ) Status BUN 06/23/2023 03:37:00 32 Above high normal 6-20 (mg/dL) Final Creatinine 06/23/2023 03:37:00 1.8 Above high normal 0.5-1.0 (mg/dL) Final Glomerular filtration rate/1.73 sq M.predicted [Volume Rate/Area] in Serum, Plasma or Blood by Creatinine-based formula (CKD-EPI) 06/23/2023 03:37:00 31 Below low normal >=60 (mL/min) Final eGFR is calculated based on the CKD-EPI 2020 equation Sodium 06/23/2023 03:37:00 133 Below low normal 135 -146 (mmol/L) Final Potassium 06/23/2023 03:37:00 3.2 Below low normal 3.5 -5.1 (mmol/L) Final Cl 06/23/2023 03:37:00 97 Below low normal 98- 107 (mmol/L) Final CO2 06/23/2023 03:37:00 25 22-32 (mmo l/L) Final Anion gap 06/23/2023 03:37:00 11 7-15 (mmol /L) Final Glucose 06/23/2023 03:37:00 123 Above high normal 70 -120 (mg/dL) Final Albumin 06/23/2023 03:37:00 2.1 Below low normal 3.8 -5.0 (g/dL) Final AST (Aspartate aminotransferase) 06/23/2023 03:37:00 31 10-35 (U/L) Fin al Alk Phos 06/23/2023 03:37:00 234 Above high normal 35 -130 (U/L) Final Bilirubin, Total 06/23/2023 03:37:00 <0.2 <=1 .2 (mg/dL) Final Calcium 06/23/2023 03:37:00 8.6 8.4-10.2 ( mg/dL) Final Protein 06/23/2023 03:37:00 5.9 Below low normal 6.0 -8.3 (g/dL) Final ALT (Alanine aminotransferase) 06/23/2023 03:37:00 <5 Below low normal 10-35 (U/L) Final Performing Location LABORATORY [facility] - [address] [place], [place] [address] [address]
--- OUTSIDE RECORDS SUMMARY | 2023-07-28 23:04 | External Medical Summary ---
Author Name Unknown Address Unknown Organization : Laboratory Report Ordering Provider Test Date Status AILEEN KIDD 06/22/2023 21:15:24 Final Observation Date Value Abnormality Reference (Units ) Status Glucose Point of Care 06/22/2023 21:15:24 125 Above high normal 70-120 (mg/dL) Final Performing Location
--- OUTSIDE RECORDS SUMMARY | 2023-07-28 23:04 | External Medical Summary ---
Author Name Unknown Address Unknown Organization K1F:LABORATORY [facility] - [address] [place] [address] Laboratory Report Ordering Provider Test Date Status CASTILLO SANCHEZ 06/18/2023 03:55:00 Final Observation Date Value Abnormality Reference (Units ) Status Troponin T 06/18/2023 03:55:00 125 Above upper panic limits <=14 (ng/L) Final Performing Location LABORATORY [facility] - [address] [place] [address]
--- OUTSIDE RECORDS SUMMARY | 2023-07-28 23:04 | External Medical Summary ---
Author Name Unknown Address Unknown Organization K1F:[facility] [address] [facility] [place] [address] Laboratory Report Ordering Provider Test Date Status EVY FERNANDEZ 06/19/2023 20:21:23 Final Observation Date Value Abnormality Reference (Units ) Status Adenovirus DNA [Presence] in Nasopharynx by BLAISE with non-probe detection 06/19/2023 20:21:23 Negative Negative Final Human coronavirus 229E RNA [Presence] in Nasopharynx by BLAISE with non-probe detection 06/19/2023 20:21:23 Negative Negative Final Human coronavirus HKU1 RNA [Presence] in Nasopharynx by BLAISE with non-probe detection 06/19/2023 20:21:23 Negative Negative Final Human coronavirus NL63 RNA [Presence] in Nasopharynx by BLAISE with non-probe detection 06/19/2023 20:21:23 Negative Negative Final Human coronavirus OC43 RNA [Presence] in Nasopharynx by BLAISE with non-probe detection 06/19/2023 20:21:23 Positive Abnormal Negative Final Coronavirus OC43 detected by PCR (amplified probe). SARS-CoV-2 (COVID-19) RNA [P resence] in Nasopharynx by BLAISE with non-probe detection 06/19/2023 20:21:23 Negative Negative Final Human metapneumovirus RNA [P resence] in Nasopharynx by BLAISE with non-probe detection 06/19/2023 20:21:23 Negative Negative Final Rhinovirus+Enterovirus RNA [ Presence] in Nasopharynx by BLAISE with non-probe detection 06/19/2023 20:21:23 Negative Negative Final Influenza virus A RNA [Prese nce] in Nasopharynx by BLAISE with non-probe detection 06/19/2023 20:21:23 Negative Negative Final Influenza virus B RNA [Prese nce] in Nasopharynx by BLAISE with non-probe detection 06/19/2023 20:21:23 Negative Negative Final Parainfluenza virus 1 RNA [P resence] in Nasopharynx by BLAISE with non-probe detection 06/19/2023 20:21:23 Negative Negative Final Parainfluenza virus 2 RNA [P resence] in Nasopharynx by BLAISE with non-probe detection 06/19/2023 20:21:23 Negative Negative Final Parainfluenza virus 3 RNA [P resence] in Nasopharynx by BLAISE with non-probe detection 06/19/2023 20:21:23 Negative Negative Final Parainfluenza virus 4 RNA [P resence] in Nasopharynx by BLAISE with non-probe detection 06/19/2023 20:21:23 Negative Negative Final Respiratory syncytial virus RNA [Presence] in Nasopharynx by BLAISE with non-probe detection 06/19/2023 20:21:23 Negative Negative F inal Bordetella pertussis.pertuss is toxin promoter region [Presence] in Nasopharynx by BLAISE with non-probe detection 06/19/2023 20:21:23 Negative Negative Final Chlamydophila pneumoniae DNA [Presence] in Nasopharynx by BLAISE with non-probe detection 06/19/2023 20:21:23 Negative Negative Final Mycoplasma pneumoniae DNA [P resence] in Nasopharynx by BLAISE with non-probe detection 06/19/2023 20:21:23 Negative Negative Final Bordetella parapertussis IS1 001 DNA [Presence] in Nasopharynx by BLAISE with non-probe detection 06/19/2023 20:21:23 Negative Negative F inal
The primers that detect Rhinovirus may cross react with some Enterorviruses. The validation of bronchial specimens, tracheal aspirates, and throats for this assay was developed and performance characteristics determined by [employer]. The validation of alternate specimen types has not been cleared or approved by the U.S. Food and Drug Administration (FDA). It has been determined that such clearance or approval is not necessary. [facility] - [address] [place] [address] mimi [place] [address]
--- OUTSIDE RECORDS SUMMARY | 2023-07-28 23:04 | External Medical Summary ---
Author Name Unknown Address Unknown Organization : Laboratory Report Ordering Provider Test Date Status ANTONIO ATKINS 06/20/2023 11:22:57 Final Observation Date Value Abnormality Reference (Units ) Status Glucose Point of Care 06/20/2023 11:22:57 176 Above high normal 70-120 (mg/dL) Final Performing Location
--- OUTSIDE RECORDS SUMMARY | 2023-07-28 23:04 | External Medical Summary ---
Author Name Unknown Address Unknown Organization : Laboratory Report Ordering Provider Test Date Status ERNESTO RAMOS 06/18/2023 21:13:20 Final Observation Date Value Abnormality Reference (Units ) Status Glucose Point of Care 06/18/2023 21:13:20 251 Above high normal 70-120 (mg/dL) Final Performing Location
--- OUTSIDE RECORDS SUMMARY | 2023-07-28 23:04 | External Medical Summary ---
Author Name Unknown Address Unknown Organization K1F:LAB[facility]ATORY [facility] - [address] [place] [address] Laboratory Report Ordering Provider Test Date Status MAIA YADAV 06/22/2023 05:16:00 Final Observation Date Value Abnormality Reference (Units ) Status BUN 06/22/2023 05:16:00 35 Above high normal 6-20 (mg/dL) Final Creatinine 06/22/2023 05:16:00 1.9 Above high normal 0.5-1.0 (mg/dL) Final Glomerular filtration rate/1.73 sq M.predicted [Volume Rate/Area] in Serum, Plasma or Blood by Creatinine-based formula (CKD-EPI) 06/22/2023 05:16:00 29 Below low normal >=60 (mL/min) Final eGFR is calculated based on the CKD-EPI 2020 equation Sodium 06/22/2023 05:16:00 132 Below low normal 135 -146 (mmol/L) Final Potassium 06/22/2023 05:16:00 3.6 3.5-5.1 (m mol/L) Final Cl 06/22/2023 05:16:00 97 Below low normal 98- 107 (mmol/L) Final CO2 06/22/2023 05:16:00 23 22-32 (mmo l/L) Final Anion gap 06/22/2023 05:16:00 12 7-15 (mmol /L) Final Glucose 06/22/2023 05:16:00 154 Above high normal 70 -120 (mg/dL) Final Albumin 06/22/2023 05:16:00 2.4 Below low normal 3.8 -5.0 (g/dL) Final AST (Aspartate aminotransferase) 06/22/2023 05:16:00 41 Above high normal 10-35 (U/L) Final Alk Phos 06/22/2023 05:16:00 296 Above high normal 35 -130 (U/L) Final Bilirubin, Total 06/22/2023 05:16:00 0.2 <=1 .2 (mg/dL) Final Calcium 06/22/2023 05:16:00 8.7 8.4-10.2 ( mg/dL) Final Protein 06/22/2023 05:16:00 6.4 6.0-8.3 (g /dL) Final ALT (Alanine aminotransferase) 06/22/2023 05:16:00 <5 Below low normal 10-35 (U/L) Final Performing Location LABORATORY [facility] - [facility] [place] [address]
--- OUTSIDE RECORDS SUMMARY | 2023-07-28 23:04 | External Medical Summary ---
Author Name Unknown Address Unknown Organization K1F:LABORATORY [facility] - [address] [place] [address] Laboratory Report Ordering Provider Test Date Status MAIA YADAV 06/21/2023 03:19:00 Final Observation Date Value Abnormality Reference (Units ) Status WBC, Total 06/21/2023 03:19:00 8.53 4.00-10.80 (K/uL) Final RBC 06/21/2023 03:19:00 2.69 3.85-5.15 (M/uL) Final Hemoglobin 06/21/2023 03:19:00 7.6 Below low normal 12.0-15.3 (g/dL) Final HCT 06/21/2023 03:19:00 24.7 Below low normal 36.0-45.2 (%) Final MCV 06/21/2023 03:19:00 91.8 81.5-97.5 (fL) Final MCH 06/21/2023 03:19:00 28.3 27.0-34.0 (pg) Final MCHC 06/21/2023 03:19:00 30.8 32.0-36.0 (g/dL) Final RDW 06/21/2023 03:19:00 18.8 11.5-15.5 (%) Final Platelets 06/21/2023 03:19:00 271 140-400 (K/uL) Final MPV 06/21/2023 03:19:00 12.1 6.6-11.1 (fL) Final Nucleated erythrocytes/100 leukocytes [Ratio] in Blood by Automated count 06/21/2023 03:19:00 0 <=0 (/100 WBCs) Final Performing Location LABORATORY [facility] - [address] [place] [address]
--- OUTSIDE RECORDS SUMMARY | 2023-07-28 23:04 | External Medical Summary ---
Author Name Unknown Address Unknown Organization : Laboratory Report Ordering Provider Test Date Status ERNESTO RAMOS 06/19/2023 07:20:45 Final Observation Date Value Abnormality Reference (Units ) Status Glucose Point of Care 06/19/2023 07:20:45 148 Above high normal 70-120 (mg/dL) Final Performing Location
--- OUTSIDE RECORDS SUMMARY | 2023-07-28 23:04 | External Medical Summary ---
Author Name Unknown Address Unknown Organization K1F:LABORATORY [facility] - [address] [place] [address] Laboratory Report Ordering Provider Test Date Status ERNESTO RAMOS 06/20/2023 05:25:00 Final Observation Date Value Abnormality Reference (Units ) Status BUN 06/20/2023 05:25:00 33 Above high normal 6-20 (mg/dL) Final Creatinine 06/20/2023 05:25:00 2.1 Above high normal 0.5-1.0 (mg/dL) Final Glomerular filtration rate/1.73 sq M.predicted [Volume Rate/Area] in Serum, Plasma or Blood by Creatinine-based formula (CKD-EPI) 06/20/2023 05:25:00 26 Below low normal >=60 (mL/min) Final eGFR is calculated based on the CKD-EPI 2020 equation Sodium 06/20/2023 05:25:00 134 Below low normal 135 -146 (mmol/L) Final Potassium 06/20/2023 05:25:00 4.3 3.5-5.1 (m mol/L) Final Cl 06/20/2023 05:25:00 99 98-107 (mm ol/L) Final CO2 06/20/2023 05:25:00 24 22-32 (mmo l/L) Final Anion gap 06/20/2023 05:25:00 11 7-15 (mmol /L) Final Glucose 06/20/2023 05:25:00 220 Above high normal 70 -120 (mg/dL) Final Calcium 06/20/2023 05:25:00 8.5 8.4-10.2 ( mg/dL) Final Performing Location LABORATORY [facility] - [address] [place] [place] [address]
--- OUTSIDE RECORDS SUMMARY | 2023-07-28 23:04 | External Medical Summary ---
Author Name Unknown Address Unknown Organization : Laboratory Report Ordering Provider Test Date Status ERNESTO RAMOS 06/18/2023 17:29:21 Final Observation Date Value Abnormality Reference (Units ) Status Glucose Point of Care 06/18/2023 17:29:21 250 Above high normal 70-120 (mg/dL) Final Performing Location
--- OUTSIDE RECORDS SUMMARY | 2023-07-28 23:04 | External Medical Summary ---
Author Name Unknown Address Unknown Organization : Laboratory Report Ordering Provider Test Date Status ERNESTO RAMOS 06/18/2023 12:07:42 Final Observation Date Value Abnormality Reference (Units ) Status Glucose Point of Care 06/18/2023 12:07:42 250 Above high normal 70-120 (mg/dL) Final Performing Location
--- OUTSIDE RECORDS SUMMARY | 2023-07-28 23:04 | External Medical Summary ---
Author Name Unknown Address Unknown Organization : Laboratory Report Ordering Provider Test Date Status AILEEN KIDD 06/23/2023 07:33:22 Final Observation Date Value Abnormality Reference (Units ) Status Glucose Point of Care 06/23/2023 07:33:22 118 70-120 (mg/dL) Final Performing Location
--- OUTSIDE RECORDS SUMMARY | 2023-07-28 23:05 | External Medical Summary ---
Author Name Unknown Address Unknown Organization K1F:LABORATORY [facility] - [address] [place], [place] [address] [address] Laboratory Report Ordering Provider Test Date Status TRENTON,PACHECO 06/17/2023 20:43:00 Final Observation Date Value Abnormality Reference (Units ) Status Bacteria identified in Specimen by Culture 06/17/2023 20:43:00 No growth Final Test: Culture, Blood (Site 2 )
Specimen Source: Blood, Venous
Specimen Type: Blood
Specimen Date: 06/17/2023 8:43 PM
Result Date: 06/22/2023 9:02 PM
Result Status: Final result
Resulting Lab: LABORATORY [facility]
[address] [place] [address]
[place] [address]

CULTURE

No growth

null Performing Location LABORATORY [facility] - [address] [place] [address] [address] [place] [address]
--- OUTSIDE RECORDS SUMMARY | 2023-07-28 23:05 | External Medical Summary ---
Author Name Unknown Address Unknown Organization K1F:LABORATORY [facility] - [address] [place] [address] Laboratory Report Ordering Provider Test Date Status JUNIOR CHOWDHURY 06/17/2023 18:37:00 Final Observation Date Value Abnormality Reference (Units ) Status Troponin T 06/17/2023 18:37:00 101 Above upper panic limits <=14 (ng/L) Final Performing Location LABORATORY [facility] - [address] [place] [address]
--- OUTSIDE RECORDS SUMMARY | 2023-07-28 23:05 | External Medical Summary ---
Author Name Unknown Address Unknown Organization K1F[facility] [address] [facility] [place] [address] Laboratory Report Ordering Provider Test Date Status JUNIOR CHOWDHURY 06/17/2023 19:06:44 Final ADMITTED patient Observation Date Value Abnormality Reference (Units ) Status Adenovirus DNA [Presence] in Nasopharynx by BLAISE with non-probe detection 06/17/2023 19:06:44 Negative Negative Final Human coronavirus 229E RNA [Presence] in Nasopharynx by BLAISE with non-probe detection 06/17/2023 19:06:44 Negative Negative Final Human coronavirus HKU1 RNA [Presence] in Nasopharynx by BLAISE with non-probe detection 06/17/2023 19:06:44 Negative Negative Final Human coronavirus NL63 RNA [Presence] in Nasopharynx by BLAISE with non-probe detection 06/17/2023 19:06:44 Negative Negative Final Human coronavirus OC43 RNA [Presence] in Nasopharynx by BLAISE with non-probe detection 06/17/2023 19:06:44 Negative Negative Final SARS-CoV-2 (COVID-19) RNA [Presence] in Nasopharynx by BLAISE with non-probe detection 06/17/2023 19:06:44 Negative Negative Final Human metapneumovirus RNA [Presence] in Nasopharynx by BLAISE with non-probe detection 06/17/2023 19:06:44 Negative Negative Final Rhinovirus+Enterovirus RNA [Presence] in Nasopharynx by BLAISE with non-probe detection 06/17/2023 19:06:44 Negative Negative Final Influenza virus A RNA [Presence] in Nasopharynx by BLAISE with non-probe detection 06/17/2023 19:06:44 Negative Negative Final Influenza virus B RNA [Presence] in Nasopharynx by BLAISE with non-probe detection 06/17/2023 19:06:44 Negative Negative Final Parainfluenza virus 1 RNA [Presence] in Nasopharynx by BLAISE with non-probe detection 06/17/2023 19:06:44 Negative Negative Final Parainfluenza virus 2 RNA [Presence] in Nasopharynx by BLAISE with non-probe detection 06/17/2023 19:06:44 Negative Negative Final Parainfluenza virus 3 RNA [Presence] in Nasopharynx by BLAISE with non-probe detection 06/17/2023 19:06:44 Negative Negative Final Parainfluenza virus 4 RNA [Presence] in Nasopharynx by BLAISE with non-probe detection 06/17/2023 19:06:44 Negative Negative Final Respiratory syncytial virus RNA [Presence] in Nasopharynx by BLAISE with non-probe detection 06/17/2023 19:06:44 Negative Negative Final Bordetella pertussis.pertussis toxin promoter region [Presence] in Nasopharynx by BLAISE with non-probe detection 06/17/2023 19:06:44 Negative Negative Final Chlamydophila pneumoniae DNA [Presence] in Nasopharynx by BLAISE with non-probe detection 06/17/2023 19:06:44 Negative Negative Final Mycoplasma pneumoniae DNA [Presence] in Nasopharynx by BLAISE with non-probe detection 06/17/2023 19:06:44 Negative Negative Final Bordetella parapertussis [id number] DNA [Presence] in Nasopharynx by BLAISE with non-probe detection 06/17/2023 19:06:44 Negative Negative Final
The primers that detect Rhinovirus may cross react with some Enterorviruses. The validation of bronchial specimens, tracheal aspirates, and throats for this assay was developed and performance characteristics determined by [employer]. The validation of alternate specimen types has not been cleared or approved by the U.S. Food and Drug Administration (FDA). It has been determined that such clearance or approval is not necessary. [facility] - [address] [place], [place] [address]ang[place] [address]
--- OUTSIDE RECORDS SUMMARY | 2023-07-28 23:05 | External Medical Summary | Summary of Care ---
Author Name Unknown Organization [facility] Address [address] [place] [address] Phone [phone] Care Team Providers Care Brick Molder Hand Name Role Phone Natali Langston Primary Care Provider Reason for Visit * Reason Onset Date Comments Appointment 06/14/2023 Encounter Details Date Type Department Care Team (Late st Contact Info) Description 06/14/2023 Telephone Podiatry [facility] [address] [place] [address] Lynnette Rasmussen DPM [address] [facility] [place] [address] Appointment Allergies Active Allergy Reactions Criticality Noted Date Comments Amoxicillin 06/26/2014 Clarithromycin High 01/16/2023 Other Reaction(s): HEART RACES Palpitations Dextromethorphan High 01/16/2023 Other Reaction(s): Hives Doxylamine High 01/16/2023 Other Reaction(s): Hives Latex 06/18/2014 Gmgvtglol-Knisqxpceq-Sb-Ap ap Edema face/lips/tongue,It katie High 11/11/2010 Sulfa Antibiotics 08/03/2000 rash, malaise documented as of this encounter (statuses as of 06/15/2023) Medications Medication Sig Dispensed Refills Start Date End Date Status Lisinopril 40 MG Oral Tablet Take 1 Tablet by mouth in the morning. 30 Tablet 3 06/14/2023 Active Omeprazole 20 MG Oral Capsule Delayed Release (PriLOSEC) Take 1 Capsule by mouth daily before breakfast. 30 Capsule 3 06/14/2023 Active Amitriptyline HCl 100 MG Oral Tablet (Elavil) Take 1 Tablet by mouth every night at bedtime. 30 Tablet 3 06/13/2023 Active ceFAZolin IV IV (AMBULATORY) Administer 2 g intravenously in the morning and 2 g before bedtime. 160 g 0 06/13/2023 4 Active hydrOXYzine HCl 50 MG Oral Tablet Take 1 Tablet by mouth every 8 hours as needed for Anxiety. 30 Tablet 0 06/13/2023 Active Insulin Aspart 100 UNIT/ML Subcutaneous Solution (NovoLOG) Glucose 80-150 (units): 0 Glucose 151-200 (units): 2 Glucose 201-250 (units): 4 Glucose 251-300 (units): 6 Glucose greater than 300 (units): 8 1 Each 12 06/13/2023 Active LiquaCel Oral Liquid Take 30 mL by mouth in the morning and 30 mL before bedtime. 1800 mL 11 06/13/2023 5 Active Miconazole Nitrate 2 % External Powder (Remedy) Apply topically to affected area 2 times a day. Apply to abdominal folds 85 g 3 06/13/2023 Active Polyethylene Glycol 3350 17 GM Oral Packet (Miralax) Take 1 Packet by mouth daily as needed for Constipation. 14 Each 0 06/13/2023 Active Sennosides-Docusa te Sodium 8.6-50 MG Oral Tablet (Senokot-S) Take 1 Tablet by mouth 2 times a day as needed for Constipation. 30 Tablet 3 06/13/2023 Active Bisacodyl 5 MG Oral Tablet Delayed Release (Dulcolax) Take 1 Tablet by mouth daily as needed for Constipation. 30 Tablet 0 06/13/2023 Active Bisacodyl 10 MG Rectal Suppository (Dulcolax) Administer 1 Suppository into the rectum daily as needed for Constipation. 12 Suppository 0 06/13/2023 Active Torsemide 60 MG Oral Tablet Take 60 mg by mouth in the morning and 60 mg in the evening. 60 Tablet 3 06/13/2023 Active Insulin Glargine 100 UNIT/ML Subcutaneous Solution (Lantus) Inject 10 Units under the skin at bedtime. 1 Each 12 06/13/2023 Active Albuterol Sulfate HFA 108 (90 Base) MCG/ACT Inhalation Aerosol Solution Inhale 2 Puffs by mouth every 6 hours as needed for Dyspnea. 18 g 3 06/13/2023 Active Levothyroxine Sodium 175 MCG Oral Tablet (Levoxyl) Take 1 Tablet by mouth in the morning. (at least 30 min prior to breakfast or other meds). 30 Tablet 3 06/13/2023 Active Simvastatin 40 MG Oral Tablet (Zocor) Take 1 Tablet by mouth in the morning. 30 Tablet 3 06/13/2023 Active documented as of this encounter (statuses as of 06/15/2023) Active Problems Problem Noted Date Diagnosed Date Moderate tricuspid regurgitation 06/08/2023 Mild mitral stenosis 06/05/2023 Acute on chronic congestive heart failure 2023 Mitral valve insufficiency 06/03/2023 Mild tricuspid regurgitation 06/03/2023 Moderate pulmonary hypertension 06/03/2023 AV junctional rhythm 06/03/2023 Chronic kidney disease, stage IV (severe) 2023 Class 3 severe obesity in adult 06/03/2023 Type 1 diabetes mellitus wit h hemoglobin A1c goal of less than 7.0% 06/18/2014 Overview: ICD-10 update of inactive term Hypertension 06/18/2014 Hypothyroid 06/18/2014 documented as of this encounter (statuses as of 06/15/2023) Immunizations Name Administration Dates Next Due PPD [...] on file documented as of this encounter Functional Status Functional Status Response Date of Assess ment Are you deaf or do you have serious difficulty h earing? No 06/03/2023 Are you blind or do you have serious difficulty seeing, even when wearing glasses? Yes 06/03/2023 Do you have serious difficul ty walking or climbing stairs? (5 years old or older) Yes-Walker 06/03/2023 Do you have difficulty dress ing or bathing? (5 years old or older) No 06/03/2023 Because of a physical, menta l, or emotional condition, do you have difficulty doing errands alone such as visiting a doctor s office or shopping? (15 years old or older) Yes 06/03/19 Cognitive Status Response Date of Assessm ent Because of a physical, menta l, or emotional condition, do you have serious difficulty concentrating, remembering, or making decisions? (5 years old or older) No 06/03/2023 documented as of this encounter Miscellaneous Notes * Telephone Encounter - Edelmira Flores OSA - 06/15/2023 8:10 AM EDT Called cherise anand and LM for them to CB and reschedule the appointment. * Telephone Encounter - Edelmira Flores OSA - 06/14/2023 8:07 AM EDT Called patient and LM for them to CB. * Telephone Encounter - Lynnette Rasmussen DPM - 06/14/2023 7:49 AM EDT Please call pt to cancel appointment. This is scheduled in podiatry and she has a wound. She also follows with [facility] wound care, which is clearly documented in my note. She needs to follow upwith them. documented in this encounter Plan of Treatment Upcoming Encounters Date Type Department Care Team (Late st Contact Info) Description 06/18/2023 10:20 AM EDT Office Visit Podiatry, [address] [place] [address] Lynnette Rasmussen, DPM [address] [place] [address] 06/26/2023 11:40 AM EDT Office Visit Sleep Disorders, [address] [address] Dena Arshad MD [address] [place] [address] 07/11/2023 10:00 AM EDT Office Visit Cardiology, [address] [address] Aneta Ornelas PA-C [address] [place] [address] 08/31/2023 10:20 AM EDT Office Visit Infectious Disease [facility] [address] [place] [phone] Ricky Carnes MD [address] [place] [address] Health Maintenance Due Date Last Done Comments DISCUSS TOBACCO CESSATION (REFER TO SMARTSET #[id number]) 1960 Depression Screening 1972 HIV Screening 1975 Diabetic Eye Exam 1978 Diabetic Foot Exam 1978 Hgb 1978 Nephrology Referral 1978 PTH 1978 Phosphate 1978 HPV/Co-Test 1990 Mammogram 2000 Cologuard 2005 [...] 06/02/2023, 11/10, 01/22/2018, Additional history exists GFR 12/15/2023 06/15/2023, 040 05/2023, 06/12/2023, Additional history exists TSH 06/14/2024 06/15/2023, 05/11, 11/19/2018, Additional history exists GARDASIL-HPV IMMUNIZATION SERIES Aged [...] Not on filedocumented as of this encounter Advance Directives Latest Code Status on File Code Status Date Activated Date Inactivated Comments Full Code 06/03/2023 2:50 AM 06/13/2023 7:19 PM This o rder reflects the patients wishes and were consensually agreed upon. Question Answer Comments Discussion of Advance Directives occurred with: Patient Care Teams Brick Molder Hand Relationship Specialty Start Date End Date Natali Langston DO [address] [facility] [address] [place] [address] PCP - General Family Medicine 06/18/14 documented as of this encounter
--- OUTSIDE RECORDS SUMMARY | 2023-07-28 23:05 | External Medical Summary ---
Author Name Unknown Address Unknown Organization K1F:LABORATORY [facility] - [address] [place] [address] Laboratory Report Ordering Provider Test Date Status JUNIOR CHOWDHURY 06/17/2023 18:37:00 Final Observation Date Value Abnormality Reference (Units ) Status Magnesium 06/17/2023 18:37:00 1.3 Below low normal 1.5 -2.6 (mg/dL) Final Performing Location LABORATORY [facility] - [address] [place] [address]
--- OUTSIDE RECORDS SUMMARY | 2023-07-28 23:05 | External Medical Summary ---
Author Name Unknown Address Unknown Organization K1F:LABORATORY [facility] - [address] [place] [address] Laboratory Report Ordering Provider Test Date Status JUNIOR CHOWDHURY 06/17/2023 18:37:00 Final Observation Date Value Abnormality Reference (Units ) Status Albumin 06/17/2023 18:37:00 2.5 Below low normal 3.8-5.0 (g/dL) Final AST (Aspartate aminotransferase) 06/17/2023 18:37:00 30 10-35 (U/L) Final Alk Phos 06/17/2023 18:37:00 267 Above high normal 35-130 (U/L) Final ALT (Alanine aminotransferase) 06/17/2023 18:37:00 <5 Below low normal 10-35 (U/L) Final Bilirubin, Total 06/17/2023 18:37:00 <0.2 <=1.2 (mg/dL) Final Bilirubin, Direct 06/17/2023 18:37:00 <0.2 0.0-0.3 (mg/dL) Final Protein 06/17/2023 18:37:00 6.4 6.0-8.3 (g/dL) Final Performing Location LABORATORY [facility] - [address] [place] [address]
--- OUTSIDE RECORDS SUMMARY | 2023-07-28 23:05 | External Medical Summary ---
Author Name Unknown Address Unknown Organization K1F:LABORATORY [facility] - [address] [place] [address] Laboratory Report Ordering Provider Test Date Status CASTILLO SANCHEZ 06/17/2023 20:43:00 Final Observation Date Value Abnormality Reference (Units ) Status Troponin T 06/17/2023 20:43:00 103 Above upper panic limits <=14 (ng/L) Final Performing Location LABORATORY [facility] - [address] [place] [address]
--- OUTSIDE RECORDS SUMMARY | 2023-07-28 23:05 | External Medical Summary ---
Author Name Unknown Address Unknown Organization K1F:LABORATORY [facility] - [address] [place] [address] Laboratory Report Ordering Provider Test Date Status JUNIOR CHOWDHURY 06/17/2023 20:43:00 Final Observation Date Value Abnormality Reference (Units ) Status Lactic Acid 06/17/2023 20:43:00 1.0 0.4-2.0 (mmol/L) Final Performing Location LABORATORY [facility] - [address] [place] [address]
--- OUTSIDE RECORDS SUMMARY | 2023-07-28 23:05 | External Medical Summary ---
Author Name Unknown Address Unknown Organization K1F:LABORATORY [facility] - [address] [place] [address] [address] [place] [address] Laboratory Report Ordering Provider Test Date Status JUNIOR CHOWDHURY 06/17/2023 18:37:00 Final Observation Date Value Abnormality Reference (Units ) Status WBC, Total 06/17/2023 18:37:00 9.85 4.00-10.80 (K/uL) Final RBC 06/17/2023 18:37:00 2.99 3.85-5.15 (M/uL) Final Hemoglobin 06/17/2023 18:37:00 8.4 Below low normal 12.0-15.3 (g/dL) Final HCT 06/17/2023 18:37:00 27.2 Below low normal 36.0-45.2 (%) Final MCV 06/17/2023 18:37:00 91.0 81.5-97.5 (fL) Final MCH 06/17/2023 18:37:00 28.1 27.0-34.0 (pg) Final MCHC 06/17/2023 18:37:00 30.9 32.0-36.0 (g/dL) Final RDW 06/17/2023 18:37:00 19.2 11.5-15.5 (%) Final Platelets 06/17/2023 18:37:00 239 140-400 (K/uL) Final MPV 06/17/2023 18:37:00 11.4 6.6-11.1 (fL) Final Nucleated erythrocytes/100 leukocytes [Ratio] in Blood by Automated count 06/17/2023 18:37:00 0 <=0 (/100 WBCs) Final Performing Location LABORATORY [facility] - [address] [place] [address]
--- OUTSIDE RECORDS SUMMARY | 2023-07-28 23:05 | External Medical Summary ---
Author Name Unknown Address Unknown Organization K1F:LABORATORY [facility] - [address] [address] Laboratory Report Ordering Provider Test Date Status JUNIOR CHOWDHURY 06/17/2023 18:37:00 Final Observation Date Value Abnormality Reference (Units ) Status Amylase 06/17/2023 18:37:00 27 Below low normal 28- 100 (U/L) Final Performing Location LABORATORY [facility] - [address] [place] [address]
--- OUTSIDE RECORDS SUMMARY | 2023-07-28 23:05 | External Medical Summary ---
Author Name Unknown Address Unknown Organization K1F:LABORATORY [facility] - [address] [place], [place] [address] [place] [address] Laboratory Report Ordering Provider Test Date Status TRENTONJUNIOR 06/17/2023 20:48:00 Final Observation Date Value Abnormality Reference (Units ) Status Bacteria identified in Specimen by Culture 06/17/2023 20:48:00 No growth Final Test: Culture, Blood
Janelle lockhart Source: Blood, Venous
Specimen Type: Blood
Specimen Date: 06/17/2023 8:48 PM
Result Date: 06/22/2023 9:02 PM
Result Status: Final result
Resulting Lab: LABORATORY [facility]
[address] [place] [address]
[address] [place] [address]

CULTURE

No growth

null Performing Location LABORATORY [facility] - [address] [place] [address] [address] [place] [address]
--- OUTSIDE RECORDS SUMMARY | 2023-07-28 23:05 | External Medical Summary ---
Author Name Unknown Address Unknown Organization K1F:LABORATORY [facility] - [address] [address] Laboratory Report Ordering Provider Test Date Status JUNIOR CHOWDHURY 06/17/2023 18:37:00 Final Exclude Heart Failure: <300 pg/mL
Diagnose Heart Failure:
Age <50 yr: >450 pg/mL
50-75 yr: >900 pg/mL
>75 yr: >1800 pg/mL
GFR is 30-59 mL/min: >1200 pg/mL or Age- adjusted values
GFR <30 mL/min: do not use, not reliable

Prognostic threshold: 1000 pg/mL Observation Date Value Abnormality Reference (Units ) Status BNP, Pro-hormone 06/17/2023 18:37:00 3398 Above high no rmal <300 (pg/mL) Final Performing Location LABORATORY [facility] - [address] [place] [address]
--- OUTSIDE RECORDS SUMMARY | 2023-07-28 23:05 | External Medical Summary ---
Author Name Unknown Address Unknown Organization K1F:LABORATORY [facility] - [address] [address] Laboratory Report Ordering Provider Test Date Status JUNIOR CHOWDHURY 06/17/2023 18:58:00 Final Warfarin Therapy
INR: 2 .0-3.0 conventional anticoagulation
INR: 2.5- 3.5 high intensity anticoagulation Observation Date Value Abnormality Reference (Units ) Status PT 06/17/2023 18:58:00 14.9 11.6-15.2 (seconds) Final INR 06/17/2023 18:58:00 1.2 0.8-1.2 Final Performing Location LABORATORY [facility] - [address] [place] [address]
--- OUTSIDE RECORDS SUMMARY | 2023-07-28 23:05 | External Medical Summary | Summary of Care ---
Author Name Unknown Organization [facility] Address [address] [place] [address] Phone [phone] Care Team Providers Care Pillow Filler Name Role Phone Natali Langston Primary Care Provider Reason for Visit * Reason Onset Date Comments Appointment 06/14/2023 Encounter Details Date Type Department Care Team (Late st Contact Info) Description 06/14/2023 Telephone Podiatry [facility] [address] [place] [address] Lynnette Rasmussen DPM [address] [facility] [place] [address] Appointment Allergies Active Allergy Reactions Criticality Noted Date Comments Amoxicillin 06/26/2014 Clarithromycin High 01/16/2023 Other Reaction(s): HEART RACES Palpitations Dextromethorphan High 01/16/2023 Other Reaction(s): Hives Doxylamine High 01/16/2023 Other Reaction(s): Hives Latex 06/18/2014 Qlhyctqdr-Vrgwhexnll-Oj-Ap ap Edema face/lips/tongue,It katie High 11/11/2010 Sulfa [...] encounter Miscellaneous Notes * Telephone Encounter - Nneka Simpson OSA - 06/15/2023 3:30 PM EDT I spoke with Agustina at [facility] and she is aware the appointment with Dr. Rasmussen 06/18/23 iscanceled. She was informed to contact [facility] to schedule a follow-up. * Telephone Encounter - Edelmira Flores OSA - 06/15/2023 8:10 AM EDT Called [facility] and LM for them to CB and reschedule the appointment. * Telephone Encounter - Edelmira Flores OSA - 06/14/2023 8:07 AM EDT Called patient and LM for them to CB. * Telephone Encounter - Lynnette Rasmussen, KING - 06/14/2023 7:49 AM EDT Please call pt to cancel appointment. This is scheduled in podiatry and she has a wound. She also follows with [facility] wound care, which is clearly documented in my note. She needs to follow upwith them. documented in this encounter Plan of Treatment Upcoming Encounters Date Type Department Care Team (Late st Contact Info) Description 06/18/2023 10:20 AM EDT Office Visit Podiatry, [address] [address] Lynnette Rasmussen DPM [address] [facility] [place] [address] 06/26/2023 11:40 AM EDT Office Visit Sleep Disorders, [address] [place] [address] Dena Arshad MD [address] [place] [address] 07/11/2023 10:00 AM EDT Office Visit Cardiology, [address] [place] [address] Aneta Ornelas PA-C [address] [place] [address] 08/31/2023 10:20 AM EDT Office Visit Infectious Disease [facility] [address] [place] [phone] Ricky Carnes MD [address] [place] [address] Health Maintenance Due Date Last Done Comments DISCUSS TOBACCO CESSATION (REFER TO SMARTSET #9903) 1960 Depression Screening 1972 HIV Screening 1975 [...] Advance Directives occurred with: Patient Care Teams Pillow Filler Relationship Specialty Start Date End Date Natali Langston DO [address] [place] [address], [place] [address] PCP - General Family Medicine 06/18/14 documented as of this encounter
--- OUTSIDE RECORDS SUMMARY | 2023-07-28 23:05 | External Medical Summary ---
Author Name Unknown Address Unknown Organization K1F:[facility] - [address] [place] [address] Laboratory Report Ordering Provider Test Date Status JUNIOR CHOWDHURY 06/17/2023 18:37:00 Final Observation Date Value Abnormality Reference (Units ) Status SYNC LEUKOCYTES IN BLOOD BY AUTOMATED COUNT 06/17/2023 18:37:00 9.85 4.00-10.80 (K/uL) Final Segs 06/17/2023 18:37:00 71.9 40.0-75.0 (%) Final Lymphs % 06/17/2023 18:37:00 18.2 18.0-42.0 (%) Final Monos 06/17/2023 18:37:00 6.7 1.0-11.0 (%) Final Eosinophils 06/17/2023 18:37:00 2.3 0.0-6.0 (%) Final Basos 06/17/2023 18:37:00 0.5 0.0-2.0 (%) Final Immature Granulocyte, Percent 06/17/2023 18:37:00 0.4 0.0-2.0 (%) Final Absolute Segs 06/17/2023 18:37:00 7.08 1.80-7.70 (K/uL) Final Lymphs, absolute 06/17/2023 18:37:00 1.79 1.00-4.80 (K/ul) Final Monos, Abs 06/17/2023 18:37:00 0.66 0.00-1.10 (K/uL) Final Eos, Abs 06/17/2023 18:37:00 0.23 0.00-0.70 (K/uL) Final Basos, Abs 06/17/2023 18:37:00 0.05 0.00-0.20 (K/uL) Final Immature Granulocytes, Number 06/17/2023 18:37:00 0.04 0.00-0.20 (K/uL) Final Performing Location LABORATORY [facility] - [facility] [address] [place] [address]
--- OUTSIDE RECORDS SUMMARY | 2023-07-28 23:06 | External Medical Summary | Summary of Care ---
Author Name Unknown Organization [facility] Address [address] [place] [address] Phone [phone] Care Team Providers Care Talend Etl Developer Name Role Phone Natali Langston Primary Care Provider Reason for Visit * Reason Onset Date Comments Appointment 06/14/2023 Encounter Details Date Type Department Care Team (Late st Contact Info) Description 06/14/2023 Telephone Podiatry [facility] [address] [place] [address] Lynnette Rasmussen DPM [address] [facility] [address] Appointment Allergies Active Allergy Reactions Criticality Noted Date Comments Amoxicillin 06/26/2014 Clarithromycin High 01/16/2023 Other Reaction(s): HEART RACES Palpitations Dextromethorphan High 01/16/2023 Other Reaction(s): Hives Doxylamine High 01/16/2023 Other Reaction(s): Hives Latex 06/18/2014 Abchmsvdx-Gmfsmgpsdp-Dw-Ap ap Edema face/lips/tongue,It katie High 11/11/2010 Sulfa Antibiotics 08/03/2000 rash, malaise documented as of this encounter (statuses as of 06/14/2023) Medications Medication Sig Dispensed Refills Start Date [...] as of this encounter (statuses as of 06/14/2023) Active Problems Problem Noted Date Diagnosed Date [...] as of this encounter (statuses as of 06/14/2023) Immunizations Name Administration Dates Next Due PPD [...] has a wound. She also follows with [facility], which is clearly documented in my note. She needs to follow upwith them. documented in this encounter Plan of Treatment Upcoming Encounters Date Type Department Care Team (Late st Contact Info) Description 06/18/2023 10:20 AM EDT Office Visit Podiatry, [address] [place] [address] Lynnette Rasmussen DPM [address] [facility] [place] [address] 06/26/2023 11:40 AM EDT Office Visit Sleep Disorders, [address] [place] [address] Dena Arshad MD [address] [place] [address] 07/11/2023 10:00 AM EDT Office Visit Cardiology, [place] [address] [place] [address] Aneta Ornelas PA-C [address] [place] [address] 08/31/2023 10:20 AM EDT Office Visit Infectious Disease [facility] [address] [place] [address] Ricky Carnes MD [address] [place] [address] Health Maintenance Due Date Last Done Comments DISCUSS TOBACCO CESSATION (REFER TO SMARTSET #5586) 1960 Depression Screening 1972 HIV Screening 1975 [...] 06/02/2023, 11/10, 01/22/2018, Additional history exists GFR 12/13/2023 06/13/2023, 04/2023, 06/11/2023, Additional history exists TSH 06/01/2024 06/02/2023, 11/10, 01/22/2018, Additional history exists Hepatitis C Screening Completed 06/03/2023 , 06/03/2023, 06/03/2023 GARDASIL-HPV IMMUNIZATION SERIES Aged Out No longer [...] Advance Directives occurred with: Patient Care Teams Talend Etl Developer Relationship Specialty Start Date End Date Natali Langston DO [address] [place] [address] Dr [address] [place] [address], [place] [address] PCP - General Family Medicine 06/18/14 documented as of this encounter
--- OUTSIDE RECORDS SUMMARY | 2023-07-28 23:06 | External Medical Summary ---
Author Name Unknown Address Unknown Organization K1F:LAB[facility]ORY [facility] - [address] [place] [address] Laboratory Report Ordering Provider Test Date Status BRONWYN BERNARD 06/15/2023 04:05:00 Final Observation Date Value Abnormality Reference (Units ) Status SYNC LEUKOCYTES IN BLOOD BY AUTOMATED COUNT 06/15/2023 04:05:00 10.50 4.00-10.80 (K/uL) Final Segs 06/15/2023 04:05:00 66.4 40.0-75.0 (%) Final Lymphs % 06/15/2023 04:05:00 22.6 18.0-42.0 (%) Final Monos 06/15/2023 04:05:00 7.6 1.0-11.0 (%) Final Eosinophils 06/15/2023 04:05:00 2.3 0.0-6.0 (%) Final Basos 06/15/2023 04:05:00 0.5 0.0-2.0 (%) Final Immature Granulocyte, Percent 06/15/2023 04:05:00 0.6 0.0-2.0 (%) Final Absolute Segs 06/15/2023 04:05:00 6.98 1.80-7.70 (K/uL) Final Lymphs, absolute 06/15/2023 04:05:00 2.37 1.00-4.80 (K/ul) Final Monos, Abs 06/15/2023 04:05:00 0.80 0.00-1.10 (K/uL) Final Eos, Abs 06/15/2023 04:05:00 0.24 0.00-0.70 (K/uL) Final Basos, Abs 06/15/2023 04:05:00 0.05 0.00-0.20 (K/uL) Final Immature Granulocytes, Number 06/15/2023 04:05:00 0.06 0.00-0.20 (K/uL) Final Performing Location LABORATORY [facility] - [facility] [address] [place] [address]
--- OUTSIDE RECORDS SUMMARY | 2023-07-28 23:06 | External Medical Summary | Summary of Care ---
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 consolidation. Pleural spaces: No pneumothorax. Heart/Mediastinum: Cardiomegaly. Vasculature: Atherosclerotic arch. Bones/joints: Unremarkable. IMPRESSION IMPRESSION: 1. Persistent bilateral pulmonary edema, pneumonia, or both. 2. Pleural effusions not well seen on this portable exam. THIS DOCUMENT HAS BEEN ELECTRONICALLY SIGNED BY DEYANIRA DELEON MD Specimen Collected: 06/06/23 12:20 Last Resulted: 06/06/23 12:52 MEDICATION UPDATES AT DISCHARGE START taking these medications INSTRUCTIONS albuterol HFA 108 [...] Tablet by mouth every night at bedtime. * Bisacodyl 5 MG Tbec Commonly known as: Dulcolax Notes to patient: Used to treat constipation Take 1 Tablet by mouth daily as needed for Constipation. * Bisacodyl 10 MG suppository Commonly known as: Dulcolax Notes to patient: Used to treat constipation Administer 1 Suppository into the rectum daily as needed for Constipation. ceFAZolin IV (AMBULATORY) Commonly known as: Ancef Notes to patient: Antibiotic Administer 2 g intravenously in the morning and 2 g before bedtime. hydrOXYzine HCl 50 MG Tablet Notes to patient: Being used for you to treat anxiety Take 1 Tablet by mouth every 8 hours as needed for Anxiety. insulin aspart 100 UNIT/ML injection Commonly known as: NovoLOG Glucose 80-150 (units): 0 Glucose 151-200 (units): 2 Glucose 201-250 (units): 4 Glucose 251-300 (units): 6 Glucose greater than 300 (units): 8 Insulin Glargine 100 UNIT/ML injection Commonly known as: Lantus Notes to patient: Used to lower blood sugar in patients with high blood sugar (diabetes) Inject 10 Units under the skin at bedtime. LiquaCel Liqd Notes to patient: Protein supplement Take 30 mL by mouth in the morning and 30 mL before bedtime. Lisinopril 40 MG Tablet Start taking on: June 14, 2023 Notes to patient: Used to treat high blood pressure, heart failure (weak heart), and to help heart function after a heart attack Take 1 Tablet by mouth in the morning. Miconazole Nitrate 2 % Powd Commonly known as: Remedy Notes to patient: Used to treat certain kinds of fungal or yeast infections of the skin Apply topically to affected area 2 times a day. Apply to abdominal folds Polyethylene Glycol 3350 packet Commonly known as: Miralax Notes to patient: Used to treat constipation Take 1 Packet by mouth daily as needed for Constipation. senna-docusate 8.6-50 MG per tablet Commonly known as: Senokot-S Notes to patient: Used to treat constipation Take 1 Tablet by mouth 2 times a day as needed for Constipation. Torsemide 60 MG Tabs Notes to patient: Used to treat high blood pressure and get rid of extra fluid Take 60 mg by mouth in the morning and 60 mg in the evening. * This list has 2 medication(s) that are the same as other medications prescribed for you. Read thedirections carefully, and ask your doctor or other care provider to review them with you. CHANGE how you take these medications INSTRUCTIONS levothyroxine 175 MCG Tablet Commonly known as: Levoxyl What changed: how much to take additional instructions Another medication with the same name was removed. Continue taking this medication, and follow the directions you see here. Notes to patient: Used to add thyroid hormone to the body Take 1 Tablet by mouth in the morning. (at least 30 min prior to breakfast or other meds). omeprazole 20 MG Cpdr Commonly known as: PriLOSEC Start taking on: June 14, 2023 What changed: when to take this Notes to patient: Used to treat or prevent GI (gastrointestinal) ulcers, gastroesophageal reflux disease (GERD; acid reflux), heartburn, syndromes caused by lots of stomach acid, and ulcers of the esophagus Take 1 Capsule by mouth daily before breakfast. CONTINUE taking these medications INSTRUCTIONS Simvastatin 40 MG Tablet Commonly known as: Zocor Notes to patient: Used to lower bad cholesterol, lower triglycerides, and raise good cholesterol (HDL) Take 1 Tablet by mouth in the morning. STOP taking these medications Glucophage 500 MG Tablet Generic drug: metFORMIN HumuLIN R 100 UNIT/ML injection Generic drug: insulin REGULAR human raNITIdine HCl 150 MG Capsule SCHEDULED FOLLOW-UP: Future Appointments Appt Date/Time Provider Department 06/26/2023 11:40 AM Dena Arshad MD Sleep Disorders, [facility] 07/11/2023 10:00 AM [facility]23 10:20 AM Ricky Carnes MD Infectious Disease [facility] Outpatient Follow Up CBC with WBC Differential Comprehensive Metabolic Panel SLEEP MEDICINE REFERRAL OP Other Information Indwelling Devices: LINES ALL Duration Power PICC Single Lumen Right;Upper Arm 1 day Vital Signs (last recorded): Most Recent Systolic BP: 143 mmHg (06/13/23727) Most Recent Diastolic BP: 66 mmHg (06/13/23727) Pulse: 63 (06/13/23 0814) Resp: 16 (06/13/23727) Most Recent Temperature: 36.39 C (06/13/23727) Weight: (!) 148.6 kg (327 lb 8 oz) (06/13/23 05) SpO2: 100 % (06/13/23727) O2 flow rate: 2 L/MIN (06/13/23 0940) Allergies: Clarithromycin, Dextromethorphan, Doxylamine, Sdejnnarj-piwxawqomf-ki-apap, Amoxicillin,Latex, and Sulfa antibiotics Activity: as tolerated Diet: cardiac diet and diabetic diet Code Status: Full Code Condition on Discharge: stable Isolation status: None Cognition: normal HOSPITAL CONSULTS ORDERED: WOUND CONSULT IP PHARMACY CONSULT IP CARDIOLOGY CONSULT IP PODIATRY CONSULT IP ADULT PHYSICAL THERAPY CONSULT IP ADULT OCCUPATIONAL THERAPY CONSULT IP IV THERAPY CONSULT IP REFERRING PHYSICIAN: Ref: [id number]] NO STREET ADDRESS AVAILABLE None (office) None (fax) PRIMARY CARE PROVIDER: PCP: Natali Langston, DO [address] / [facility] [address] (office) [phone] (fax) Note: To contact a physician responsible for this patients hospital care, please call [employer] [phone]. I spent a total of 45 minutes coordinating, documenting, and providing care for this patient excluding time spent in the performance of separately billed services. documented in this encounter Discharge Instructions * Discharge Instr - AVS* Indra Kang MD - 06/13/2023 12:36 PM EDT Discharge Date: 06/13/23 Brief summary of inpatient care: Alexandria Smith was admitted to [facility] on 06/02/2023 with chief complaint abdominalpain from home. The primary diagnosis at discharge was Acute on chronic HFpEF, Left heel OM, MSSA infection . Alexandria Smith is being discharged to [facility]. The Hospital Medicine physician(s) at the time of discharge included: Indra Kang MD To reach this Provider Sunday through Sunday (8:00 AM to 4:30 PM) for any questions or test results: Call [phone] For after-hours concerns: Call [phone] and have your provider paged, or the provider adoption specialist for the Department of Hospital Medicine paged. Inpatient test results pending: none Operations & Procedures: none Code Status: Full Code Advance Directive Documentation: Advance Directive Does the Patient have an Advance Directive? No Diet: Carbohydrate-controlled diet, Heart healthy diet Activity: As tolerated Alexandria should continue the following therapies: Physical Therapy and Occupational Therapy Additional Precautions: fall Isolation Status: None Mentation at Discharge: normal Future Studies Required: CBCD and CMP Q weekly until 07/23/23 Respiratory Support at Discharge: oxygen at 2 L : setting - 24 hours PRIMARY CARE PROVIDER: PCP: Natali Langston, [address] / [place] [address] (office) [phone] (fax) Special Instructions: End date for medications including antibiotics and anticoagulants: continue Ancef 2 g Q 12 H until 07/23/23 DIABETES EDUCATION Meal Planning: Eat 3 meals per day Do not skip meals - Try to eat 4 to 5 hours apart Do not snack unless discussed with a doctor, dietitian or certified control systems technician Blood Glucose Monitoring: Check blood glucoses daily before each meal and at bedtime Goals for Blood Glucoses: Before meal target: 90-130 mg/dl 2 hours after meal target: 140-180 mg/dl Low Blood Glucose (Hypoglycemia) - what to do: If blood glucose is less than 80 If you have symptoms of a low blood sugar such as dizziness, headache, sweats or shaking Stop what you are doing and take 4 oz juice or 6 oz regular soda or 8 oz milk or 3 glucose tablets Sit and wait 15 minutes and check your blood glucose If your blood glucose is not above 90, repeat the above treatment If after 2 treatments the symptoms are not relieved, call your doctor - Natali Langston, DO High Blood Glucose (Hyperglycemia) - what to do: If blood glucose is greater than 300 Drink 12 oz of water every 15 minutes Test for urine ketones if instructed In 30 minutes, wash your hands and again test your blood sugar Call your doctor - Natali Langston, DO if results are still above 300 Medications: Please review all medications. If you have any questions please consult your physician. - Call your primary care physician or seek medical attention if worsening leg swelling, weight gain. Please have the patient return to the Emergency Department for any of the following: chest pain, chest pressure, chest tightness, difficulty breathing. The patient should not smoke or use tobacco products in any way! documented in this encounter Progress Notes * Leo Reich MD - 06/12/2023 1:30 PM EDT PROGRESS NOTE - Hospitalist [facility] [place] [address] Name: Alexandria Smith Location: [facility] [id number] Date: 06/12/2023 Time: 1:30 PM 63 year old female, HD# 9, admitted for acute HFpEF SUBJECTIVE: NAEO. Respiratory status stable on 2LNC. Vitals stable. No complaints ROS: As above. All other systems reviewed and negative PHYSICAL EXAMINATION: Most Recent Vital Signs: BP: 149 mmHg/61 mmHg (06/12/23699) Pulse: 64 (06/12/23700) Temp: 36.39 C (06/12/23699) Temp Summary: Temp Min: 36.4 C (97.5 F) Max: 36.6 C (97.9 F) SpO2: 98 % (06/12/23699) O2 flow rate: 2 L/MIN (06/12/23699) Supplemental O2 Delivery: Nasal Cannula (06/12/23699) General: obese, NAD Head: NC/AT Eyes: EOMI, sclera anicteric, conjunctiva normal ENT: MMM Neck: supple Cardiac: RRR, no murmurs, rubs, gallops Lungs: CTAB, no wheezes, rales, rhonchi Abdomen: soft, nt, nd Extr: 2+PE b/l Skin: warm and dry, no jaundice Neuro: Aox3, no focal deficits Psych: mood and affect appropriate Intake/Output Summary (Last 24 hours) at 06/12/2023 1330 Last data filed at 06/12/2023 1009 Gross per 24 hour Intake 374.79 ml Output 400 ml Net -25.21 ml STUDIES: Labs and other studies reviewed with pertinent findings noted below: Recent Results (from the past 24 hour(s)) GLUCOSE METER, POINT OF CARE Collection Time: 06/11/23 5:08 PM Result Value Ref Range Glucose Meter 177 (H) 70 - 120 mg/dL GLUCOSE METER, POINT OF CARE Collection Time: 06/11/23 9:27 PM Result Value Ref Range Glucose Meter 178 (H) 70 - 120 mg/dL BASIC METABOLIC PANEL Collection Time: 06/12/23 6:15 AM Result Value Ref Range BUN 29 (H) 6 - 20 mg/dL Creatinine 1.9 (H) 0.5 - 1.0 mg/dL Estimated Glomerular Filtration Rate 30 (L) >=60 mL/min Sodium 137 135 - 146 mmol/L Potassium 3.5 3.5 - 5.1 mmol/L Chloride 102 98 - 107 mmol/L CO2 24 22 - 32 mmol/L Anion Gap 11 7 - 15 mmol/L Glucose 180 (H) 70 - 120 mg/dL Calcium 8.8 8.4 - 10.2 mg/dL CBC Collection Time: 06/12/23 6:15 AM Result Value Ref Range WBC 9.16 4.00 - 10.80 K/uL RBC 3.00 3.85 - 5.15 M/uL HGB 8.5 (L) 12.0 - 15.3 g/dL HCT 26.7 (L) 36.0 - 45.2 % MCV 89.0 81.5 - 97.5 fL MCH 28.3 27.0 - 34.0 pg MCHC 31.8 32.0 - 36.0 g/dL RDW 18.8 11.5 - 15.5 % PLT 235 140 - 400 K/uL MPV 13.4 6.6 - 11.1 fL nRBCs 0 <=0 /100 WBCs GLUCOSE METER, POINT OF CARE Collection Time: 06/12/23 8:11 AM Result Value Ref Range Glucose Meter 155 (H) 70 - 120 mg/dL GLUCOSE METER, POINT OF CARE Collection Time: 06/12/23 11:36 AM Result Value Ref Range Glucose Meter 191 (H) 70 - 120 mg/dL IMAGING: No imaging results in the last 72 hours IMPRESSION AND PLAN : Principal Problem: Acute on chronic congestive heart failure (HCC) (POA: Unknown) Active Problems: Hypertension (POA: Yes) Mitral valve insufficiency (POA: Unknown) Mild tricuspid regurgitation (POA: Unknown) Moderate pulmonary hypertension (HCC) (POA: Unknown) AV junctional rhythm (POA: Unknown) Chronic kidney disease, stage IV (severe) (HCC) (POA: Unknown) Class 3 severe obesity in adult (HCC) (POA: Unknown) Mild mitral stenosis (POA: Unknown) Moderate tricuspid regurgitation (POA: Unknown) Resolved Problems: * No resolved hospital problems. * POA = Present On Admission 63yo female with obesity, CKD3, HTN, HFpEF, admitted for exacerbation of dHF, responding well to IVdiuresis. Final OM cx growing MSSA, PICC in place. Auth pending for placement Exacerbation of dHF -transition to torsemide 60mg PO BID -cardiology following -continue vessel captain lisinopril -qshift vitals, I/O -qD CBC/BMP R Heel Wound, OM -podiatry following -cx growing MSSA -continue ancef -PICC in place FEN/GI: heart healthy VTE PPx: heparin CODE STATUS: Code Status: Full Code DISPO: Floor Time spent: 45 Mins, more than half with patient and remaining time for coordination of care with nurses and specialties Leo Reich MD * Rama Bales CRNP - 06/12/2023 11:24 AM EDT PROGRESS NOTE - Cardiology Service [address] [address] Name: Alexandria Smith Location: [facility] [id number] Date: 06/12/2023 Time: 11:24 AM SUBJECTIVE: The patient was seen today in Cardiology follow-up in regard to acute on chronic CHF exacerbation. Symptomatically she continues to improve each day. Shortness of breath continues to improve. She wasable to walk in and out of the bathroom without getting terribly winded today. Review of systems: Review of Systems Constitutional: Negative for activity change, fatigue and unexpected weight change. Eyes: Negative for visual disturbance. Respiratory: Positive for shortness of breath. Negative for wheezing. Cardiovascular: Positive for leg swelling. Negative for chest pain and palpitations. Gastrointestinal: Negative for blood in stool, constipation, diarrhea, nausea and vomiting. Genitourinary: Negative for hematuria. Musculoskeletal: Negative for arthralgias and gait problem. Skin: Positive for wound. Neurological: Negative for dizziness and syncope. OBJECTIVE: Most Recent Vital Signs: BP: 149 mmHg/61 mmHg (06/12/23 07) Pulse: 64 (06/12/23 0701) Temp: 36.39 C (06/12/23 07) Temp Summary: Temp Min: 36.4 C (97.5 F) Max: 36.6 C (97.9 F) SpO2: 98 % (06/12/23699) O2 flow rate: 2 L/MIN (06/12/23699) Supplemental O2 Delivery: Nasal Cannula (06/12/23699) Vital Signs Last 24 Hours: Systolic BP: Most Recent Systolic BP Av.7 mmHg Min: 138 mmHg Max: 171 mmHg Temperature: Most Recent Temperature Av.5 C Min: 36.39 C Max: 36.61 C Pulse: Pulse Av.6 Min: 62 Max: 69 Respirations: No data recorded SpO2: SpO2 Av.7 % Min: 91 % Max: 98 % Physical Exam Constitutional: General: She is awake. She is not in acute distress. Appearance: Normal appearance. She is morbidly obese. Interventions: Nasal cannula in place. HENT: Head: Normocephalic and atraumatic. Eyes: Extraocular Movements: Extraocular movements intact. Pupils: Pupils are equal, round, and reactive to light. Neck: Vascular: No carotid bruit or JVD. Cardiovascular: Rate and Rhythm: Normal rate and regular rhythm. Pulses: Carotid pulses are 2+ on the right side and 2+ on the left side. Radial pulses are 2+ on the right side and 2+ on the left side. Dorsalis pedis pulses are 2+ on the right side and 2+ on the left side. Posterior tibial pulses are 2+ on the right side and 2+ on the left side. Heart sounds: Normal heart sounds, S1 normal and S2 normal. No murmur heard. No gallop. Pulmonary: Effort: Pulmonary effort is normal. No accessory muscle usage. Breath sounds: No wheezing or rhonchi. Abdominal: General: Abdomen is protuberant. Musculoskeletal: Cervical back: Neck supple. Right lower leg: Edema present. Left lower leg: Edema present. Skin: General: Skin is warm and dry. Capillary Refill: Capillary refill takes less than 2 seconds. Neurological: Mental Status: She is alert and oriented to person, place, and time. Mental status is at baseline. Psychiatric: Attention and Perception: Attention and perception normal. Behavior: Behavior is cooperative. Judgment: Judgment normal. Current Facility-Administered Medications Medication Dose Route Frequency Provider Torsemide (Demadex) tab 60 mg 60 mg Oral BID (0900,1600) Rama Bales CRNP LiquaCel 30 mL Oral BID(AM/PM) Leo Reich MD hydrOXYzine HCl tab 50 mg 50 mg Oral Q8H PRN Power Marshall MD ceFAZolin in dextrose (Ancef) ivpb 2 g 2 g IV Piggyback Q12H Power Marshall MD albuterol (VENTOLIN HFA/PROVENTIL HFA) inhaler 2 Puff Inhalation Q6H PRN Jose Martin Wolff MD isolyte-S pH 7.4 infusion Intravenous Continuous Lynnette Rasmussen DPM Miconazole Nitrate (Remedy) powder Topical BID(AM/PM) Lynnette Rasmussen DPM Acetaminophen (Tylenol) tab 650 mg 650 mg Oral Q6H PRN Lynnette Rasmussen DPM amitriptyline (Elavil) tab 100 mg 100 mg Oral QHS Lynnette Rasmussen DPM Polyethylene Glycol 3350 (Miralax) oral powder 17 g 1 Packet Oral Daily PRN Lynnette Rasmussen DPM And senna-docusate (Senokot-S) 1 Tablet 1 Tablet Oral BID PRN Lynnette Rasmussen DPM And Bisacodyl (Dulcolax) tab 5 mg 5 mg Oral Daily PRN Lynnette Rasmussen DPM And Bisacodyl (Dulcolax) supp 10 mg 10 mg Rectal Daily PRN Lynnette Rasmussen DPM dextrose 50% inj 25 mL 25 mL IV Push PRN Lynnette Rasmussen DPM dextrose 50% inj 50 mL 50 mL IV Push PRN Lynnette Rasmussen DPM glucagon (Glucagen) inj 1 mg 1 mg Intramuscular PRN Lynnette Rasmussen DPM Glucose (Glutose 15) 40 % gel 15 g of glucose 15 g of glucose Oral PRN Lynnette Rasmussen DPM Glucose (Glutose 15) 40 % gel 30 g of glucose 30 g of glucose Oral PRN Lynnette Rasmussen DPM glucose chew tab 16 g 16 g Oral PRN Lynnette Rasmussen DPM hEParin inj 7,500 Units 7,500 Units Subcutaneous Q8H Lynnette Rasmussen DPM insulin aspart (NovoLOG) inj Subcutaneous With Meals and HS Lynnette Rasmussen DPM Insulin Glargine (Lantus) inj 10 Units 10 Units Subcutaneous HS insulin Lynnette Rasmussen DPM levothyroxine (Levoxyl) tab 175 mcg 175 mcg Oral Daily(AM) Lynnette Rasmussen DPM Lisinopril (Prinivil) tab 40 mg 40 mg Oral Daily(AM) Lynnette Rasmussen DPM Nitroglycerin (Nitrostat) sl tab 0.4 mg 0.4 mg Sublingual Q5 Min PRN Lynnette Rasmussen DPM omeprazole (PriLOSEC) cap 20 mg 20 mg Oral Before breakfast Lynnette Rasmussen DPM ondansetron (Zofran) inj 4 mg 4 mg IV Push Q6H PRN Lynnette aRsmussen DPM Simvastatin (Zocor) tab 40 mg 40 mg Oral Daily(AM) Lynnette Rasmussen DPM sodium chloride 0.9 % flush/inj 3 mL 3 mL IV Push PRN Lynnette Rasmussen DPM oxygen GAS Inhalation Oxygen Lynnette Rasmussen DPM Current Facility-Administered Medications Medication Dose Route Frequency Provider Torsemide (Demadex) tab 60 mg 60 mg Oral BID (0900,1600) Rama Bales CRNP LiquaCel 30 mL Oral BID(AM/PM) Leo Reich MD hydrOXYzine HCl tab 50 mg 50 mg Oral Q8H PRN Power Marshall MD ceFAZolin in dextrose (Ancef) ivpb 2 g 2 g IV Piggyback Q12H Power Marshall MD albuterol (VENTOLIN HFA/PROVENTIL HFA) inhaler 2 Puff Inhalation Q6H PRN Jose Martin Wolff MD isolyte-S pH 7.4 infusion Intravenous Continuous Lynnette Rasmussen DPM Miconazole Nitrate (Remedy) powder Topical BID(AM/PM) Lynnette Rasmussen DPM Acetaminophen (Tylenol) tab 650 mg 650 mg Oral Q6H PRN Lynnette Rasmussen DPM amitriptyline (Elavil) tab 100 mg 100 mg Oral QHS Lynnette Rasmussen DPM Polyethylene Glycol 3350 (Miralax) oral powder 17 g 1 Packet Oral Daily PRN Lynnette Rasmussen DPM And senna-docusate (Senokot-S) 1 Tablet 1 Tablet Oral BID PRN Lynnette Rasmussen DPM And Bisacodyl (Dulcolax) tab 5 mg 5 mg Oral Daily PRN Lynnette Rasmussen DPM And Bisacodyl (Dulcolax) supp 10 mg 10 mg Rectal Daily PRN Lynnette Rasmussen DPM dextrose 50% inj 25 mL 25 mL IV Push PRN Lynnette Rasmussen DPM dextrose 50% inj 50 mL 50 mL IV Push PRN Lynnette Rasmussen DPM glucagon (Glucagen) inj 1 mg 1 mg Intramuscular PRN Lynnette Rasmussen DPM Glucose (Glutose 15) 40 % gel 15 g of glucose 15 g of glucose Oral PRN Lynnette Rasmussen DPM Glucose (Glutose 15) 40 % gel 30 g of glucose 30 g of glucose Oral PRN Lynnette Rasmussen DPM glucose chew tab 16 g 16 g Oral PRN Lynnette Rasmussen DPM hEParin inj 7,500 Units 7,500 Units Subcutaneous Q8H Lynnette Rasmussen DPM insulin aspart (NovoLOG) inj Subcutaneous With Meals and HS Lynnette Rasmussen DPM Insulin Glargine (Lantus) inj 10 Units 10 Units Subcutaneous HS insulin Lynnette Rasmussen DPM levothyroxine (Levoxyl) tab 175 mcg 175 mcg Oral Daily(AM) Lynnette Rasmussen DPM Lisinopril (Prinivil) tab 40 mg 40 mg Oral Daily(AM) Lynnette Rasmussen DPM Nitroglycerin (Nitrostat) sl tab 0.4 mg 0.4 mg Sublingual Q5 Min PRN Rasmussen, Lynnette Zeinab, DPM omeprazole (PriLOSEC) cap 20 mg 20 mg Oral Before breakfast Lynnette Rasmussen DPM ondansetron (Zofran) inj 4 mg 4 mg IV Push Q6H PRN Lynnette Rasmussen DPM Simvastatin (Zocor) tab 40 mg 40 mg Oral Daily(AM) Lynnette Rasmussen DPM sodium chloride 0.9 % flush/inj 3 mL 3 mL IV Push PRN Lynnette Rasmussen DPM oxygen GAS Inhalation Oxygen Lynnette Rasmussen DPM Results Labs & Imaging Reviewed Below: Echocardiograms 06/04/2023 The qualitative LV ejection fraction is 55-59% (normal). The right ventricular cavity is mildly dilated. The right ventricular systolic function is normal. Mild mitral stenosis is present. Mild mitral regurgitation is present. Mild tricuspid regurgitation is present. Moderate pulmonary hypertension is present. 2023 at [facility] EF 65-70% moderate left ventricular hypertrophy mild aortic valve stenosis [id number] mitral valve regurgitation moderate tricuspid regurgitation and right ventricular systolic pressure of 30-40 mm Hg LABS: Labs reviewed as indicated below: Latest Reference Range & Units 06/07/23 05:38 06/08/23 04:33 06/09/23 05:22 06/10/23 05:44 06/11/23 06:03 Sodium 135 - 146 mmol/L 138 137 140 137 138 Potassium 3.5 - 5.1 mmol/L 3.9 3.8 3.9 3.9 3.6 Chloride 98 - 107 mmol/L 105 104 105 103 104 CO2 22 - 32 mmol/L 21 (L) 23 24 24 25 BUN 6 - 20 mg/dL 35 (H) 33 (H) 32 (H) 31 (H) 29 (H) Creatinine 0.5 - 1.0 mg/dL 2.2 (H) 2.1 (H) 2.0 (H) 2.0 (H) 1.9 (H) Estimated Glomerular Filtration Rate >=60 mL/min 25 (L) 26 (L) 28 (L) 28 (L) 29 (L) Anion Gap 7 - 15 mmol/L 12 10 11 10 9 Glucose 70 - 120 mg/dL 148 (H) 142 (H) 139 (H) 114 138 (H) Calcium 8.4 - 10.2 mg/dL 8.5 8.7 8.7 8.8 8.8 CBC Rpt ! Rpt ! Rpt ! Rpt ! Rpt ! WBC 4.00 - 10.80 K/uL 8.35 8.45 9.40 8.70 8.86 RBC 3.85 - 5.15 M/uL 2.90 2.91 2.94 2.98 3.20 HGB 12.0 - 15.3 g/dL 7.9 (L) 7.9 (L) 7.9 (L) 8.3 (L) 8.8 (L) HCT 36.0 - 45.2 % 26.4 (L) 26.7 (L) 27.3 (L) 27.4 (L) 29.4 (L) MCV 81.5 - 97.5 fL 91.0 91.8 92.9 91.9 91.9 MCH 27.0 - 34.0 pg 27.2 27.1 26.9 27.9 27.5 MCHC 32.0 - 36.0 g/dL 29.9 29.6 28.9 30.3 29.9 RDW 11.5 - 15.5 % 18.7 18.6 18.6 18.6 18.8 PLT 140 - 400 K/uL 246 241 232 235 235 MPV 6.6 - 11.1 fL 12.1 12.0 12.1 12.6 12.7 IMAGIN06/06/23 CXR IMPRESSION: 1. Persistent bilateral pulmonary edema, pneumonia, or both. 2. Pleural effusions not well seen on this portable exam. IMPRESSION and PLAN: Acute on chronic diastolic CHF Mild MR Mild TR Mild mitral stenosis Pulmonary hypertension HTN CKD IV Morbid obesity -fluid balance is -5.9 L since presentation -, no output charged for yesterday? So fluid balance may be even more so than is reflected in the I/O record -heart rate and blood pressure currently well controlled -no acute events noted on telemetry -continue lisinopril and simvastatin - volume status somewhat difficult to evaluate on exam however she does look relatively euvolemic - we will transition to torsemide 60 mg twice per day -Please document accurate I&Os -Monitor and replace electrolytes as needed. (Recommend K > 4.0 & Mag > 2.0) -Please record daily weights -2L fluid restriction -2 gm sodium restriction -Please apply compression stockings or alfonso wraps first thing in the morning and remove at night. Repeat daily. -Encourage patient to elevate lower extremities throughout the day. - once she is more euvolemic would recommend considering right heart catheterization as an outpatient Patient care discussed and coordinated with Dr. Skelton. Please refer to Dr. Skelton's notes for further recommendations. SANDRA Youngblood Department of Cardiology I spent a total of 35 minutes on the date of service in preparation, delivery, and documentation ofthe care provided to Alexandria Smith excluding any time spent in the performance of separately billed services. This chart was completed in part utilizing [employer] Voice Recognition Software. Grammatical errors, random word insertions, pronoun errors, and incomplete sentences are an occasional consequence of this system due to software limitations, ambient noise, and hardware issues. Any formal questions or concerns about the content, text, or information contained within the body of this dictation should be directly addressed to the provider for clarification. Associated attestation - Felicitas Skelton DO - 06/12/2023 7:50 PM EDT I have reviewed the advanced practitioner's documentation on the date of service referenced in note, and I agree with, and take responsibility for the plan of care. Pt seen in cardiology f/u due to acute on chronic right sided HF with preserved EF. 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 * Leo Reich MD - 06/11/2023 9:57 AM EDT PROGRESS NOTE - Hospitalist [facility] [facility] [place] [id number] Name: Alexandria Smith Location: [facility] [id number] Date: 06/11/2023 Time: 9:57 AM 63 year old female, HD# 8, admitted for acute HFpEF SUBJECTIVE: NAEO. Respiratory status stable on 2LNC. Vitals stable. No complaints ROS: As above. All other systems reviewed and negative PHYSICAL EXAMINATION: Most Recent Vital Signs: BP: 136 mmHg/62 mmHg (06/11/23727) Pulse: 63 (06/11/23727) Temp: 36.11 C (06/11/23727) Temp Summary: Temp Min: 36.1 C (97 F) Max: 36.8 C (98.2 F) SpO2: 100 % (06/11/23727) O2 flow rate: 2 L/MIN (06/11/23727) Supplemental O2 Delivery: Nasal Cannula (06/11/23727) General: obese, NAD Head: NC/AT Eyes: EOMI, sclera anicteric, conjunctiva normal ENT: MMM Neck: supple Cardiac: RRR, no murmurs, rubs, gallops Lungs: CTAB, no wheezes, rales, rhonchi Abdomen: soft, nt, nd Extr: 2+PE b/l Skin: warm and dry, no jaundice Neuro: Aox3, no focal deficits Psych: mood and affect appropriate Intake/Output Summary (Last 24 hours) at 06/11/2023 0957 Last data filed at 06/10/2023 1822 Gross per 24 hour Intake 169.84 ml Output 800 ml Net -630.16 ml STUDIES: Labs and other studies reviewed with pertinent findings noted below: Recent Results (from the past 24 hour(s)) GLUCOSE METER, POINT OF CARE Collection Time: 06/10/23 11:44 AM Result Value Ref Range Glucose Meter 128 (H) 70 - 120 mg/dL GLUCOSE METER, POINT OF CARE Collection Time: 06/10/23 4:10 PM Result Value Ref Range Glucose Meter 132 (H) 70 - 120 mg/dL GLUCOSE METER, POINT OF CARE Collection Time: 06/10/23 9:00 PM Result Value Ref Range Glucose Meter 150 (H) 70 - 120 mg/dL BASIC METABOLIC PANEL Collection Time: 06/11/23 6:03 AM Result Value Ref Range BUN 29 (H) 6 - 20 mg/dL Creatinine 1.9 (H) 0.5 - 1.0 mg/dL Estimated Glomerular Filtration Rate 29 (L) >=60 mL/min Sodium 138 135 - 146 mmol/L Potassium 3.6 3.5 - 5.1 mmol/L Chloride 104 98 - 107 mmol/L CO2 25 22 - 32 mmol/L Anion Gap 9 7 - 15 mmol/L Glucose 138 (H) 70 - 120 mg/dL Calcium 8.8 8.4 - 10.2 mg/dL CBC Collection Time: 06/11/23 6:03 AM Result Value Ref Range WBC 8.86 4.00 - 10.80 K/uL RBC 3.20 3.85 - 5.15 M/uL HGB 8.8 (L) 12.0 - 15.3 g/dL HCT 29.4 (L) 36.0 - 45.2 % MCV 91.9 81.5 - 97.5 fL MCH 27.5 27.0 - 34.0 pg MCHC 29.9 32.0 - 36.0 g/dL RDW 18.8 11.5 - 15.5 % PLT 235 140 - 400 K/uL MPV 12.7 6.6 - 11.1 fL nRBCs 0 <=0 /100 WBCs GLUCOSE METER, POINT OF CARE Collection Time: 06/11/23 8:03 AM Result Value Ref Range Glucose Meter 123 (H) 70 - 120 mg/dL IMAGING: No imaging results in the last 72 hours IMPRESSION AND PLAN : Principal Problem: Acute on chronic congestive heart failure (HCC) (POA: Unknown) Active Problems: Hypertension (POA: Yes) Mitral valve insufficiency (POA: Unknown) Mild tricuspid regurgitation (POA: Unknown) Moderate pulmonary hypertension (HCC) (POA: Unknown) AV junctional rhythm (POA: Unknown) Chronic kidney disease, stage IV (severe) (HCC) (POA: Unknown) Class 3 severe obesity in adult (HCC) (POA: Unknown) Mild mitral stenosis (POA: Unknown) Moderate tricuspid regurgitation (POA: Unknown) Resolved Problems: * No resolved hospital problems. * POA = Present On Admission 63yo female with obesity, CKD3, HTN, HFpEF, admitted for exacerbation of dHF, responding well to IVdiuresis. Final OM cx growing MSSA, continue ancef, pending ID ask-a-doc Exacerbation of dHF -continue lasix 100mg IV bid -cardiology following -continue vessel captain lisinopril -qshift vitals, I/O -qD CBC/BMP R Heel Wound, OM -podiatry following -cx growing MSSA -continue ancef -ID ask a doc FEN/GI: heart healthy VTE PPx: heparin CODE STATUS: Code Status: Full Code DISPO: Floor Time spent: 45 Mins, more than half with patient and remaining time for coordination of care with nurses and specialties Leo Reich MD * Rama Bales CRNP - 06/11/2023 9:55 AM EDT PROGRESS NOTE - Cardiology Service [address] [phone] Name: Alexandria Smith Location: [facility] [id number]-[id number]/W Date: 06/11/2023 Time: 9:55 AM SUBJECTIVE: The patient was seen today in Cardiology follow-up in regard to acute on chronic CHF exacerbation. Symptomatically she continues to improve each day. Still getting short of breath with activity with some lower extremity edema. Review of systems: Review of Systems Constitutional: Negative for activity change, fatigue and unexpected weight change. Eyes: Negative for visual disturbance. Respiratory: Positive for shortness of breath. Negative for wheezing. Cardiovascular: Positive for leg swelling. Negative for chest pain and palpitations. Gastrointestinal: Negative for blood in stool, constipation, diarrhea, nausea and vomiting. Genitourinary: Negative for hematuria. Musculoskeletal: Negative for arthralgias and gait problem. Skin: Positive for wound. Neurological: Negative for dizziness and syncope. OBJECTIVE: Most Recent Vital Signs: BP: 136 mmHg/62 mmHg (06/11/23727) Pulse: 63 (06/11/23727) Temp: 36.11 C (06/11/23727) Temp Summary: Temp Min: 36.1 C (97 F) Max: 36.8 C (98.2 F) SpO2: 100 % (06/11/23727) O2 flow rate: 2 L/MIN (06/11/23727) Supplemental O2 Delivery: Nasal Cannula (06/11/23727) Vital Signs Last 24 Hours: Systolic BP: Most Recent Systolic BP Av mmHg Min: 123 mmHg Max: 164 mmHg Temperature: Most Recent Temperature Av.5 C Min: 36.11 C Max: 36.78 C Pulse: Pulse Av Min: 60 Max: 69 Respirations: Resp Av Min: 16 Max: 16 SpO2: SpO2 Av % Min: 94 % Max: 100 % Physical Exam Constitutional: General: She is awake. She is not in acute distress. Appearance: Normal appearance. She is morbidly obese. Interventions: Nasal cannula in place. HENT: Head: Normocephalic and atraumatic. Eyes: Extraocular Movements: Extraocular movements intact. Pupils: Pupils are equal, round, and reactive to light. Neck: Vascular: No carotid bruit or JVD. Cardiovascular: Rate and Rhythm: Normal rate and regular rhythm. Pulses: Carotid pulses are 2+ on the right side and 2+ on the left side. Radial pulses are 2+ on the right side and 2+ on the left side. Dorsalis pedis pulses are 2+ on the right side and 2+ on the left side. Posterior tibial pulses are 2+ on the right side and 2+ on the left side. Heart sounds: Normal heart sounds, S1 normal and S2 normal. No murmur heard. No gallop. Pulmonary: Effort: Pulmonary effort is normal. No accessory muscle usage. Breath sounds: No wheezing or rhonchi. Abdominal: General: Abdomen is protuberant. Musculoskeletal: Cervical back: Neck supple. Right lower leg: Edema present. Left lower leg: Edema present. Skin: General: Skin is warm and dry. Capillary Refill: Capillary refill takes less than 2 seconds. Neurological: Mental Status: She is alert and oriented to person, place, and time. Mental status is at baseline. Psychiatric: Attention and Perception: Attention and perception normal. Behavior: Behavior is cooperative. Judgment: Judgment normal. Current Facility-Administered Medications Medication Dose Route Frequency Provider hydrOXYzine HCl tab 50 mg 50 mg Oral Q8H PRN Power Marshall MD ceFAZolin in dextrose (Ancef) ivpb 2 g 2 g IV Piggyback Q12H Power Marshall MD albuterol (VENTOLIN HFA/PROVENTIL HFA) inhaler 2 Puff Inhalation Q6H PRN Jose Martin Wolff MD Furosemide (Lasix) inj 100 mg 100 mg IV Push BID (0900,1600) Lynnette Rasmussen DPM isolyte-S pH 7.4 infusion Intravenous Continuous Lynnette Rasmussen DPM Miconazole Nitrate (Remedy) powder Topical BID(AM/PM) Lynnette Rasmussen DPM Acetaminophen (Tylenol) tab 650 mg 650 mg Oral Q6H PRN Lynnette Rasmussen DPM amitriptyline (Elavil) tab 100 mg 100 mg Oral QHS Lynnette Rasmussen DPM Polyethylene Glycol 3350 (Miralax) oral powder 17 g 1 Packet Oral Daily PRN Lynnette Rasmussen DPM And senna-docusate (Senokot-S) 1 Tablet 1 Tablet Oral BID PRN Lynnette Rasmussen DPM And Bisacodyl (Dulcolax) tab 5 mg 5 mg Oral Daily PRN Lynnette Rasmussen DPM And Bisacodyl (Dulcolax) supp 10 mg 10 mg Rectal Daily PRN Lynnette Rasmussen DPM dextrose 50% inj 25 mL 25 mL IV Push PRN Lynnette Rasmussen DPM dextrose 50% inj 50 mL 50 mL IV Push PRN Lynnette Rasmussen DPM glucagon (Glucagen) inj 1 mg 1 mg Intramuscular PRN Lynnette Rasmussen DPM Glucose (Glutose 15) 40 % gel 15 g of glucose 15 g of glucose Oral PRN Lynnette Rasmussen DPM Glucose (Glutose 15) 40 % gel 30 g of glucose 30 g of glucose Oral PRN Lynnette Rasmussen DPM glucose chew tab 16 g 16 g Oral PRN Lynnette Rasmussen DPM hEParin inj 7,500 Units 7,500 Units Subcutaneous Q8H Lynnette Rasmussen DPM insulin aspart (NovoLOG) inj Subcutaneous With Meals and HS Lynnette Rasmussen DPM Insulin Glargine (Lantus) inj 10 Units 10 Units Subcutaneous HS insulin Lynnette Rasmussen DPM levothyroxine (Levoxyl) tab 175 mcg 175 mcg Oral Daily(AM) Lynnette Rasmussen DPM Lisinopril (Prinivil) tab 40 mg 40 mg Oral Daily(AM) Lynnette Rasmussen DPM Nitroglycerin (Nitrostat) sl tab 0.4 mg 0.4 mg Sublingual Q5 Min PRN Lynnette Rasmussen DPM omeprazole (PriLOSEC) cap 20 mg 20 mg Oral Before breakfast Lynnette Rasmussen DPM ondansetron (Zofran) inj 4 mg 4 mg IV Push Q6H PRN Lynnette Rasmussen DPM Simvastatin (Zocor) tab 40 mg 40 mg Oral Daily(AM) Lynnette Rasmussen DPM sodium chloride 0.9 % flush/inj 3 mL 3 mL IV Push PRN Lynnette Rasmussen DPM oxygen GAS Inhalation Oxygen Lynnette Rasmussen DPM Current Facility-Administered Medications Medication Dose Route Frequency Provider hydrOXYzine HCl tab 50 mg 50 mg Oral Q8H PRN Power Marshall MD ceFAZolin in dextrose (Ancef) ivpb 2 g 2 g IV Piggyback Q12H Power Marshall MD albuterol (VENTOLIN HFA/PROVENTIL HFA) inhaler 2 Puff Inhalation Q6H PRN Jose Martin Wolff MD Furosemide (Lasix) inj 100 mg 100 mg IV Push BID (0900,1600) Lynnette Rasmussen DPM isolyte-S pH 7.4 infusion Intravenous Continuous Lynnette Rasmussen DPM Miconazole Nitrate (Remedy) powder Topical BID(AM/PM) Lynnette Rasmussen DPM Acetaminophen (Tylenol) tab 650 mg 650 mg Oral Q6H PRN Lynnette Rasmussen DPM amitriptyline (Elavil) tab 100 mg 100 mg Oral QHS Lynnette Rasmussen DPM Polyethylene Glycol 3350 (Miralax) oral powder 17 g 1 Packet Oral Daily PRN Lynnette Rasmussen DPM And senna-docusate (Senokot-S) 1 Tablet 1 Tablet Oral BID PRN Lynnette Rasmussen DPM And Bisacodyl (Dulcolax) tab 5 mg 5 mg Oral Daily PRN Lynnette Rasmussen DPM And Bisacodyl (Dulcolax) supp 10 mg 10 mg Rectal Daily PRN Lynnette Rasmussen DPM dextrose 50% inj 25 mL 25 mL IV Push PRN Lynnette Rasmussen DPM dextrose 50% inj 50 mL 50 mL IV Push PRN Lynnette Rasmussen DPM glucagon (Glucagen) inj 1 mg 1 mg Intramuscular PRLynnette Bradley DPM Glucose (Glutose 15) 40 % gel 15 g of glucose 15 g of glucose Oral PRN Lynnette Rasmussen DPM Glucose (Glutose 15) 40 % gel 30 g of glucose 30 g of glucose Oral PRN Lynnette Rasmussen DPM glucose chew tab 16 g 16 g Oral PRLynnette Bradley DPM hEParin inj 7,500 Units 7,500 Units Subcutaneous Q8H Lynnette Rasmussen DPM insulin aspart (NovoLOG) inj Subcutaneous With Meals and HS Lynnette Rasmussen DPM Insulin Glargine (Lantus) inj 10 Units 10 Units Subcutaneous HS insulin Lynnette Rasmussen DPM levothyroxine (Levoxyl) tab 175 mcg 175 mcg Oral Daily(AM) Lynnette Rasmussen DPM Lisinopril (Prinivil) tab 40 mg 40 mg Oral Daily(AM) Lynnette Rasmussen DPM Nitroglycerin (Nitrostat) sl tab 0.4 mg 0.4 mg Sublingual Q5 Min PRLynnette Bradley DPM omeprazole (PriLOSEC) cap 20 mg 20 mg Oral Before breakfast Lynnette Rasmussen DPM ondansetron (Zofran) inj 4 mg 4 mg IV Push Q6H PRN Lynnette Rasmussen DPM Simvastatin (Zocor) tab 40 mg 40 mg Oral Daily(AM) Lynnette Rasmussen DPM sodium chloride 0.9 % flush/inj 3 mL 3 mL IV Push PRN Lynnette Rasmussen DPM oxygen GAS Inhalation Oxygen Lynnette Rasmussen DPM Results Labs & Imaging Reviewed Below: Echocardiograms 06/04/2023 The qualitative LV ejection fraction is 55-59% (normal). The right ventricular cavity is mildly dilated. The right ventricular systolic function is normal. Mild mitral stenosis is present. Mild mitral regurgitation is present. Mild tricuspid regurgitation is present. Moderate pulmonary hypertension is present. 2023 at [facility] EF 65-70% moderate left ventricular hypertrophy mild aortic valve stenosis [id number] mitral valve regurgitation moderate tricuspid regurgitation and right ventricular systolic pressure of 30-40 mm Hg LABS: Labs reviewed as indicated below: Latest Reference Range & Units 06/07/23 05:38 06/08/23 04:33 06/09/23 05:22 06/10/23 05:44 06/11/23 06:03 Sodium 135 - 146 mmol/L 138 137 140 137 138 Potassium 3.5 - 5.1 mmol/L 3.9 3.8 3.9 3.9 3.6 Chloride 98 - 107 mmol/L 105 104 105 103 104 CO2 22 - 32 mmol/L 21 (L) 23 24 24 25 BUN 6 - 20 mg/dL 35 (H) 33 (H) 32 (H) 31 (H) 29 (H) Creatinine 0.5 - 1.0 mg/dL 2.2 (H) 2.1 (H) 2.0 (H) 2.0 (H) 1.9 (H) Estimated Glomerular Filtration Rate >=60 mL/min 25 (L) 26 (L) 28 (L) 28 (L) 29 (L) Anion Gap 7 - 15 mmol/L 12 10 11 10 9 Glucose 70 - 120 mg/dL 148 (H) 142 (H) 139 (H) 114 138 (H) Calcium 8.4 - 10.2 mg/dL 8.5 8.7 8.7 8.8 8.8 CBC Rpt ! Rpt ! Rpt ! Rpt ! Rpt ! WBC 4.00 - 10.80 K/uL 8.35 8.45 9.40 8.70 8.86 RBC 3.85 - 5.15 M/uL 2.90 2.91 2.94 2.98 3.20 HGB 12.0 - 15.3 g/dL 7.9 (L) 7.9 (L) 7.9 (L) 8.3 (L) 8.8 (L) HCT 36.0 - 45.2 % 26.4 (L) 26.7 (L) 27.3 (L) 27.4 (L) 29.4 (L) MCV 81.5 - 97.5 fL 91.0 91.8 92.9 91.9 91.9 MCH 27.0 - 34.0 pg 27.2 27.1 26.9 27.9 27.5 MCHC 32.0 - 36.0 g/dL 29.9 29.6 28.9 30.3 29.9 RDW 11.5 - 15.5 % 18.7 18.6 18.6 18.6 18.8 PLT 140 - 400 K/uL 246 241 232 235 235 MPV 6.6 - 11.1 fL 12.1 12.0 12.1 12.6 12.7 IMAGIN06/06/23 CXR IMPRESSION: 1. Persistent bilateral pulmonary edema, pneumonia, or both. 2. Pleural effusions not well seen on this portable exam. IMPRESSION and PLAN: Acute on chronic diastolic CHF Mild MR Mild TR Mild mitral stenosis Pulmonary hypertension HTN CKD IV Morbid obesity -fluid balance is-5.9 L since presentation -weight is down 12 lb -heart rate and blood pressure currently well controlled -no acute events noted on telemetry -continue lisinopril and simvastatin -continue IV lasix for today -Please document accurate I&Os -Monitor and replace electrolytes as needed. (Recommend K > 4.0 & Mag > 2.0) -Please record daily weights -2L fluid restriction -2 gm sodium restriction -Please apply compression stockings or alfonso wraps first thing in the morning and remove at night. Repeat daily. -Encourage patient to elevate lower extremities throughout the day. -will re-evaluate tomm. Patient care discussed and coordinated with Dr. Skelton. Please refer to Dr. Skelton's notes for further recommendations. SANDRA Youngblood Department of Cardiology I spent a total of 35 minutes on the date of service in preparation, delivery, and documentation ofthe care provided to Alexandria Smith excluding any time spent in the performance of separately billed services. This chart was completed in part utilizing [employer] Voice Recognition Software. Grammatical errors, random word insertions, pronoun errors, and incomplete sentences are an occasional consequence of this system due to software limitations, ambient noise, and hardware issues. Any formal questions or concerns about the content, text, or information contained within the body of this dictation should be directly addressed to the provider for clarification. Associated attestation - Felicitas Skelton DO - 06/11/2023 9:44 PM EDT I have reviewed the advanced practitioner's documentation on the date of service referenced in note, and I agree with, and take responsibility for the plan of care. Pt seen in cardiology f/u due to acute on chronic right sided heart failure She is still volume overloaded on exam She probably has untreated LULÚ which is contributing to her recurrent right sided HF: but I think aright heart catheterization is still a good idea for her as an outpt Felicitas Skelton DO Department of Cardiology [facility] [place] [address] I spent a total of 25 minutes coordinating, documenting, and providing care for this patient excluding time spent in the performance of separately billed services or time spent by another provider/QHP. * Power Marshall MD - 06/10/2023 9:58 AM EDT Images from the original note were not included. PROGRESS NOTE - Hospitalist [facility] Name:Alexandria Smith SEX: female AGE: [age] year old Date: 06/10/2023 63 y/o F patient with Hypothyroidism, DM, GERD, HLD Presented to the ER with abdominal pain. She recently signed out of [facility] abd pelvis shoed CHF, anasarca, ?cardiogenic chf Cardiology consulted for CHF exacerbation Podiatry was consulted as her MRi foot is concerning for early osteomyelitis of plantar aspect of heel. She underwent Bone biopsy of right heel on 06/06/2023, may need PICC line with iv antibiotic SUBJECTIVE: Patient continues to have leg swelling - some improvement noted. She denies any pain today, no other complaints OBJECTIVE: VITALS: BP 147/68 | Pulse 65 | Temp 36.2 C (97.2 F) (Temporal Artery) | Resp 16 | Ht 1.562 m (5' 1.5") | Wt (!) 154.9 kg (341 lb 9.6 oz) | LMP 11/22/2002 | SpO2 100% | BMI 63.51 kg/m | BSA 2.59 m Intake/Output Summary (Last 24 hours) at 06/10/2023 0958 Last data filed at 06/10/2023 0900 Gross per 24 hour Intake 339.78 ml Output 1050 ml Net -710.22 ml PHYSICAL EXAMINATION: Constitutional: Alert, awake, no acute distress. Neck: supple, no mass, JVD or thyromegaly CV: normal rate and rhythm, no murmur, gallops or rub. Peripheral pulses normal. Lungs: Clear to auscultate bilateral, no wheezing, rhonchi, crackles. Abdomen: Soft, non tender non distended, BS+, No organomegaly. Extremities: 1+ edema b/l Neuro: alert, oriented x3, no focal deficits LABS: Lab results within last 7 days (see chart for full results) Units 06/10/23 0544 06/09/23 0522 06/08/23 0433 HGB g/dL 8.3* 7.9* 7.9* HCT % 27.4* 27.3* 26.7* WBC K/uL 8.70 9.40 8.45 PLT K/uL 235 232 241 Lab results within last 7 days (see chart for full results) Units 06/10/23 0544 06/09/23 0522 06/08/23 0433 Sodium mmol/L 137 140 137 Potassium mmol/L 3.9 3.9 3.8 Chloride mmol/L 103 105 104 CO2 mmol/L 24 24 23 BUN mg/dL 31* 32* 33* Creatinine mg/dL 2.0* 2.0* 2.1* Recent Cultures (2 Weeks) 06/07/2023 06/06/2023 06/06/2023 06/06/2023 06/02/2023 08/08/2000 4:03 PM 1:38 PM 12:39 PM 12:18 AM 10:52 PM 9:36 PM SPECIMEN DESCRIPTION -- -- -- -- -- NAILSTOE NAILSTOE CULTURE -- -- -- -- -- MOLD, NOT A DERMATOPHYTE NO FURTHER IDENTIFICATION DERMATOPHYTE TRICHOPHYTON SPECIES STAIN DESCRIPTION -- No polymorphonuclear leukocytes seen Few Polymorphonuclear leukocytes -- -- -- No organisms seen Occasional Gram positive cocci Occasional Gram positive bacilli CULTURE GROWTH -- From broth only Staphylococcus aureus Moderate Staphylococcus aureus -- -- -- BLOOD CULTURE GROWTH No growth to date -- -- -- -- -- No growth to date QUANT URINE CULTURE GROWTH -- -- -- Multiple genevieve suggests contamination or colonization Multiple genevieve suggests contamination or colonization -- IMPRESSION AND PLAN: Principal Problem: Acute on chronic congestive heart failure ([facility]) Active Problems: Hypertension Mitral valve insufficiency Mild tricuspid regurgitation Moderate pulmonary hypertension ([facility]) AV junctional rhythm Chronic kidney disease, stage IV (severe) ([facility]) Class 3 severe obesity in adult ([facility]) Mild mitral stenosis Moderate tricuspid regurgitation Resolved Problems: * No resolved hospital problems. * Plan: - Continue iv lasix 100mg BID - Monitor I&O - Daily weights - Needs ID consult on Sunday for IV antibiotic ; she will need picc line for 6 weeks of antibiotic treatment for osteomyelitis -PT/OT - CM consult - Remove pruett today Diet : HHD Activity :OOB DVT Prophylaxis: heparin SQ 55 minutes were spent in the care of this patient. More than half of my time was spent counseling the patient or family, coordinating care for the patient on the floor, and chart review . This chart was completed in part utilizing [employer] Voice Recognition Software. Grammatical errors, random word insertions, prounoun erros, and incomplete sentences are an occasional consequence of this system due to software limitations, ambient noise, and hardware issues. Any formal questions or concerns about the content, text, or information contained within the body of this dictation should be directly addressed to the provider for clarification. Note: To contact a physician responsible for this patients hospital care, please call [employer] [phone]. * Rama Sabillon CRNP - 06/10/2023 9:23 AM EDT Cardiology Progress Note [facility]-[address] [id number] Name: Alexandria Smith Location: [facility] [id number] Date: 06/09/2023 Time: 11:28 AM F/U: Acute on chronic diastolic CHF HPI: Alexandria Smith is a 63 year old with known history of chronic kidney disease stage 4, morbid obesity, diabetic foot ulcer, heart failure with preserved ejection fraction, uncontrolled diabetes history of metabolic encephalopathy hypertension dyslipidemia. She was diagnosed with heart failure this year when she was admitted at [facility] in March 2023. During her inpatient hospitalization required IV Lasix was discharged on Bumex 1 mg daily. She was also noted to be in junctional rhythm during that admission Echocardiogram March 2023 showed EF65-70% moderate left ventricular hypertrophy mild aortic valve stenosis [id number] mitral valve regurgitation moderate tricuspid regurgitation and right ventricular systolic pressure of 30-40 mm Hg. Discharged to [place] with 2 mg Bumex daily. Presented to [facility] ED on 06/02/23 with abdominal pain and constipation. Noted to be significantly volume overloaded. 06/08/2023: Fluid status difficult to assess due to her by habitus, diuresed with 100 mg twice daily of IV Lasix. Pruett placed for accurate I's and O's. 06/09/2023: I&O: -3.9 L(total) Weight: 155.9 kg >> 154.9 kg Labs: Renal dysfunction stable with a creatinine of 2.0. Potassium 3.9. Ongoing anemia with a hemoglobin between 7.9 and 8.1 06/10/2023: I&O: -4.7 L(total) Weight: 155.9 kg >> 154.9 kg >> No weight recorded (06/09) Labs: Renal dysfunction stable with a creatinine of 2.0. Potassium 3.9. Ongoing anemia with a hemoglobin between 7.9 and 8.3 Upon entrance into the room patient sitting up in bed. No acute concerns or events overnight. Subjectively feels improved compared to admission. Denies chest pain. Shortness of breath improving. Ongoing lower extremity edema and abdominal bloating. Continues to wear supplemental oxygen therapy. PAST MEDICAL HISTORY: Past Medical History: Diagnosis Date Acute kidney injury (HCC) Asthma DM type 2, goal A1c below 7 HTN, goal below 140/90 Migraine without aura Muscular deconditioning Other specified acquired hypothyroidism Umbilical hernia PAST SURGICAL HISTORY: Past Surgical History: Procedure Laterality Date ANESTHESIA FOR UTERINE ENDOSCOPY BONE BIOPSY, TROCAR/NEEDLE,SUPERFIC Right 06/06/2023 BIOPSY BONE NEEDLE SUPERFICIAL performed by Lynnette Rasmussen DPM at OR [facility] INFORMATION wisdom teeth removed INJECTION CERVICAL/THORACIC 06/26/2014 INJECTION SPINE LUMBAR CERVICAL OR THORACIC performed by Héctor Marvin Cousins, DO at OR [facility] INJECTION CERVICAL/THORACIC 07/10/2014 INJECTION SPINE LUMBAR CERVICAL OR THORACIC performed by Héctor Ochoasins, DO at OR [facility] KNEE ARTHROSCOPY/REPAIR LIGAMENT 1998 Knee Scope,Aid Ant Cruciate Repair x 2 FAMILY HISTORY: Family History Problem Relation Age of Onset Diabetes Mother Diabetes Grandfather (Maternal) Diabetes Uncle (Unspecified) maternal Heart Disorder Father aneyurism Heart Disorder Grandmother (Paternal) aneyurism SOCIAL HISTORY: Social History Tobacco Use Smoking status: Every Day Types: Cigarettes Smokeless tobacco: Never Substance Use Topics Alcohol use: No Drug use: No ALLERGIES: Clarithromycin, Dextromethorphan, Doxylamine, Navxodqlj-qmhmbjjbls-yr-apap, Amoxicillin, Latex, andSulfa antibiotics ROS: See HPI for pertinent positives. All others negative other than those noted in the HPI. PRIOR TO ADMISSION MEDICATIONS: Prior to Admission medications Medication Sig Last Dose Discont. levothyroxine sodium (SYNTHROID) 112 MCG Tablet Unknown HUMULIN R 100 UNIT/ML IJ SOLN 60 units twice daily Unknown LEVOXYL 175 MCG OR TABS 1 tablet daily Unknown OMEPRAZOLE 20 MG PO CPDR 1 tablet daily Unknown RANITIDINE HCL 150 MG PO CAPS 2 tablets daily Unknown SIMVASTATIN 40 MG PO TABS 1 tablet daily Unknown GLUCOPHAGE 500 MG PO TABS 2 tablets daily PHYSICAL EXAMINATION: Most Recent Vital Signs: BP: 147 mmHg/68 mmHg (06/10/23 0711) Pulse: 65 (06/10/23 0816) Temp: 36.22 C (06/10/23 0711) Temp Summary: Temp Min: 36.2 C (97.2 F) Max: 36.6 C (97.9 F) SpO2: 100 % (06/10/23710) O2 flow rate: 2 L/MIN (06/10/23710) Supplemental O2 Delivery: Nasal Cannula (06/10/23710) Vital Signs Last 24 Hours: Systolic BP: @SBPMAXR(24)@Temperature: Temp Av.4 C (97.5 F) Min: 36.2 C (97.2 F) Max: 36.6 C (97.9 F) Pulse: Pulse Av.3 Min: 55 Max: 66 Respirations: Resp Av Min: 16 Max: 16 SpO2: SpO2 Av.7 % Min: 99 % Max: 100 % General: No acute distress. A+Ox3. HEENT: Normocephalic. Atraumatic. PERRL. EOMI. Conjunctiva and sclera clear. NECK: No carotid bruits. No JVD. Carotid upstrokes are brisk. Heart: RRR. S1 and S2 noted. No murmur. No rubs or gallops. PMI non displaced. Lungs: Diminished to auscultation. No wheezes.No rhonchi. No rales. Abdomen: Normal bowel sounds. Soft. Nontender. No masses or organomegaly. No abdominal bruits. Obese Extremities: +2 LE edema. No clubbing or cyanosis. Pulses: radial=2/4, posterior tibial=2/4, dorsalis pedis = 2/4. NEURO: No focal deficits. PSYCH: Appropriate affect and insight DATA: Labs & Imaging Reviewed Below: Echo 06/04/2023 The qualitative LV ejection fraction is 55-59% (normal). The right ventricular cavity is mildly dilated. The right ventricular systolic function is normal. Mild mitral stenosis is present. Mild mitral regurgitation is present. Mild tricuspid regurgitation is present. Moderate pulmonary hypertension is present. Electrocardiogram The tracing was reviewed and interpreted. Junctional rhythm 60 beats per minute right bundle-branch block Echocardiogram March 2023 EF 65-70% moderate left ventricular hypertrophy mild aortic valve stenosis cihn-eu-etjtqigt mitral valve regurgitation moderate tricuspid regurgitation and right ventricular systolic pressure of 30-40 mm Hg IMPRESSION: 63-year-old female with acute on chronic diastolic CHF. Has mixed valvular insufficiency including mild MR and TR and mild mitral stenosis. She does have moderate pulmonary hypertension. Known chronic kidney disease with a baseline creatinine around 2. Elevated troponin secondary to demand ischemia. PLAN: -Fluid status is difficult to assess due to her morbid obesity, however, Patient remains markedly volume overloaded. -Has a pruett in place for accurate I&O. -5L since admission. -Continue IV Lasix 100 mg BID. -Monitor and replace electrolytes as needed. (Recommend K > 4.0 & Mag > 2.0) -Given history of CHF recommend hemoglobin of greater than 10. -Consider screening for obstructive sleep apnea prior to discharge as well as needed for supplemental oxygen therapy. -Strict I&Os, daily standing weights. 2 L fluid restriction. 2 g sodium restriction. -Please apply compression stockings or alfonso wraps first thing in the morning and remove at night. Repeat daily. -Encourage patient to elevate lower extremities throughout the day. Case discussed and coordinated with Dr. Welch. I spent a total of 30 minutes coordinating, documenting, and providing care for this patient excluding time spent in the performance of separately billed services or time spent by another provider/QHP. SANDRA Meadows, Department of Cardiology This chart was completed in part utilizing [employer] Voice Recognition Software. Grammatical errors, random word insertions, prounoun errors, and incomplete sentences are an occasional consequence of this system due to software limitations, ambient noise, and hardware issues. Any formal questions or concerns about the content, text, or information contained within the body of this dictation should be directly addressed to the provider for clarification. Associated attestation - Zen Welch MD - 06/10/2023 12:40 PM EDT I have reviewed the advanced practitioner's documentation on the date of service referenced in note, and I agree with, and take responsibility for the plan of care. I spent a total of 15 minutes coordinating, documenting, and providing care for this patient excluding time spent in the performance of separately billed services or time spent by another provider/QHP. * Power Marshall MD - 06/09/2023 12:29 PM EDT Images from the original note were not included. PROGRESS NOTE - Hospitalist [facility] Name:Alexandria Smith SEX: female AGE: [id number] year old Date: 06/09/2023 63 y/o F patient with Hypothyroidism, DM, GERD, HLD Presented to the ER with abdominal pain. She recently signed out of [facility] rehab CT abd pelvis shoed CHF, anasarca, ?cardiogenic chf Cardiology consulted for CHF exacerbation Podiatry was consulted as her MRi foot is concerning for early osteomyelitis of plantar aspect of heel. She underwent Bone biopsy of right heel on 06/06/2023, may need PICC line with iv antibiotic SUBJECTIVE: Patient continues to have leg swelling - reports some improvement from it. She wants the pruett catheter out as it she is having some pain near the perineal area OBJECTIVE: VITALS: BP 170/66 | Pulse 59 | Temp 36.3 C (97.3 F) (Temporal Artery) | Resp 16 | Ht 1.562 m (5' 1.5") | Wt (!) 154.9 kg (341 lb 9.6 oz) | LMP 11/22/2002 | SpO2 96% | BMI 63.51 kg/m | BSA 2.59 m Intake/Output Summary (Last 24 hours) at 06/09/2023 1229 Last data filed at 06/09/2023 1200 Gross per 24 hour Intake 1469.75 ml Output 3200 ml Net -1730.25 ml PHYSICAL EXAMINATION: Constitutional: Alert, awake, no acute distress. Neck: supple, no mass, JVD or thyromegaly CV: normal rate and rhythm, no murmur, gallops or rub. Peripheral pulses normal. Lungs: Clear to auscultate bilateral, no wheezing, rhonchi, crackles. Abdomen: Soft, non tender non distended, BS+, No organomegaly. Extremities: 2+ edema b/l Neuro: alert, oriented x3, no focal deficits LABS: Lab results within last 7 days (see chart for full results) Units 06/09/23 0522 06/08/23 0433 06/07/23 0538 HGB g/dL 7.9* 7.9* 7.9* HCT % 27.3* 26.7* 26.4* WBC K/uL 9.40 8.45 8.35 PLT K/uL 232 241 246 Lab results within last 7 days (see chart for full results) Units 06/09/23 0522 06/08/23 0433 06/07/23 0538 Sodium mmol/L 140 137 138 Potassium mmol/L 3.9 3.8 3.9 Chloride mmol/L 105 104 105 CO2 mmol/L 24 23 21* BUN mg/dL 32* 33* 35* Creatinine mg/dL 2.0* 2.1* 2.2* Recent Cultures (2 Weeks) 06/07/2023 06/06/2023 06/06/2023 06/06/2023 06/02/2023 08/08/2000 4:03 PM 1:38 PM 12:39 PM 12:18 AM 10:52 PM 9:36 PM SPECIMEN DESCRIPTION -- -- -- -- -- NAILSTOE NAILSTOE CULTURE -- -- -- -- -- MOLD, NOT A DERMATOPHYTE NO FURTHER IDENTIFICATION DERMATOPHYTE TRICHOPHYTON SPECIES STAIN DESCRIPTION -- No polymorphonuclear leukocytes seen Few Polymorphonuclear leukocytes -- -- -- No organisms seen Occasional Gram positive cocci Occasional Gram positive bacilli CULTURE GROWTH -- No aerobic or anaerobic growth Moderate Staphylococcus aureus -- -- -- BLOOD CULTURE GROWTH No growth to date -- -- -- -- -- No growth to date QUANT URINE CULTURE GROWTH -- -- -- Multiple genevieve suggests contamination or colonization Multiple genevieve suggests contamination or colonization -- IMPRESSION AND PLAN: Principal Problem: Acute on chronic congestive heart failure ([facility]) Active Problems: Hypertension Mitral valve insufficiency Mild tricuspid regurgitation Moderate pulmonary hypertension ([facility]) AV junctional rhythm Chronic kidney disease, stage IV (severe) ([facility]) Class 3 severe obesity in adult ([facility]) Mild mitral stenosis Moderate tricuspid regurgitation Resolved Problems: * No resolved hospital problems. * Plan: - Continue iv lasix 100mg BID - Monitor I&O - Daily weights - Needs ID consult on Sunday for IV antibiotic ; she will need picc line for 6 weeks of antibiotic treatment for osteomyelitis -PT/OT - CM consult - Remove pruett today Diet : HHD Activity :OOB DVT Prophylaxis: heparin SQ 55 minutes were spent in the care of this patient. More than half of my time was spent counseling the patient or family, coordinating care for the patient on the floor, and chart review . This chart was completed in part utilizing [employer] Voice Recognition Software. Grammatical errors, random word insertions, prounoun erros, and incomplete sentences are an occasional consequence of this system due to software limitations, ambient noise, and hardware issues. Any formal questions or concerns about the content, text, or information contained within the body of this dictation should be directly addressed to the provider for clarification. Note: To contact a physician responsible for this patients hospital care, please call [facility] [phone]. * Zen Welch MD - 06/09/2023 11:27 AM EDT Cardiology Progress Note [facility] [id number] Name: Alexandria Smith Location: [facility] [id number] Date: 06/09/2023 Time: 11:28 AM F/U: Acute on chronic diastolic CHF HPI: Alexandria Smith is a 63 year old with known history of chronic kidney disease stage 4, morbid obesity, diabetic foot ulcer, heart failure with preserved ejection fraction, uncontrolled diabetes history of metabolic encephalopathy hypertension dyslipidemia. She was diagnosed with heart failure this year when she was admitted at [facility] in March 2023. During her inpatient hospitalization required IV Lasix was discharged on Bumex 1 mg daily. She was also noted to be in junctional rhythm during that admission Echocardiogram March 2023 showed EF65-70% moderate left ventricular hypertrophy mild aortic valve stenosis ayfa-qr-oswpnvzs mitral valve regurgitation moderate tricuspid regurgitation and right ventricular systolic pressure of 30-40 mm Hg. Discharged to [place] with 2 mg Bumex daily. Presented to [facility] ED on 06/02/23 with abdominal pain and constipation. Noted to be significantly volume overloaded. 06/08/2023: Fluid status difficult to assess due to her by habitus, diuresed with 100 mg twice daily of IV Lasix. Pruett placed for accurate I's and O's. 06/09/2023: I&O: -3.9 L(total) Weight: 155.9 kg >> 154.9 kg Labs: Renal dysfunction stable with a creatinine of 2.0. Potassium 3.9. Ongoing anemia with a hemoglobin between 7.9 and 8.1 Upon entrance into the room patient sitting up in bed eating lunch. No acute concerns. Subjectivelyfeels improved compared to admission. Denies chest pain. Shortness of breath improving. Ongoing lower extremity edema and abdominal bloating. Continues to wear supplemental oxygen therapy. PAST MEDICAL HISTORY: Past Medical History: Diagnosis Date Acute kidney injury (HCC) Asthma DM type 2, goal A1c below 7 HTN, goal below 140/90 Migraine without aura Muscular deconditioning Other specified acquired hypothyroidism Umbilical hernia PAST SURGICAL HISTORY: Past Surgical History: Procedure Laterality Date ANESTHESIA FOR UTERINE ENDOSCOPY BONE BIOPSY, TROCAR/NEEDLE,SUPERFIC Right 06/06/2023 BIOPSY BONE NEEDLE SUPERFICIAL performed by Lynnette Rasmussen DPM at OR [facility] INFORMATION wisdom teeth removed INJECTION CERVICAL/THORACIC 06/26/2014 INJECTION SPINE LUMBAR CERVICAL OR THORACIC performed by Héctor Marvin Cousins, DO at OR [facility] INJECTION CERVICAL/THORACIC 07/10/2014 INJECTION SPINE LUMBAR CERVICAL OR THORACIC performed by Héctor Marvin Cousins, DO at OR [facility] KNEE ARTHROSCOPY/REPAIR LIGAMENT 1998 Knee Scope,Aid Ant Cruciate Repair x 2 FAMILY HISTORY: Family History Problem Relation Age of Onset Diabetes Mother Diabetes Grandfather (Maternal) Diabetes Uncle (Unspecified) maternal Heart Disorder Father aneyurism Heart Disorder Grandmother (Paternal) aneyurism SOCIAL HISTORY: Social History Tobacco Use Smoking status: Every Day Types: Cigarettes Smokeless tobacco: Never Substance Use Topics Alcohol use: No Drug use: No ALLERGIES: Clarithromycin, Dextromethorphan, Doxylamine, Xpsjqxhzc-zcswbfuzny-kd-apap, Amoxicillin, Latex, andSulfa antibiotics ROS: See HPI for pertinent positives. All others negative other than those noted in the HPI. PRIOR TO ADMISSION MEDICATIONS: Prior to Admission medications Medication Sig Last Dose Discont. levothyroxine sodium (SYNTHROID) 112 MCG Tablet Unknown HUMULIN R 100 UNIT/ML IJ SOLN 60 units twice daily Unknown LEVOXYL 175 MCG OR TABS 1 tablet daily Unknown OMEPRAZOLE 20 MG PO CPDR 1 tablet daily Unknown RANITIDINE HCL 150 MG PO CAPS 2 tablets daily Unknown SIMVASTATIN 40 MG PO TABS 1 tablet daily Unknown GLUCOPHAGE 500 MG PO TABS 2 tablets daily PHYSICAL EXAMINATION: Most Recent Vital Signs: BP: 170 mmHg/66 mmHg (06/09/23 0725) Pulse: 59 (06/09/23 0750) Temp: 36.28 C (06/09/23 0725) Temp Summary: Temp Min: 36.3 C (97.3 F) Max: 36.4 C (97.5 F) SpO2: 96 % (06/09/23 0725) O2 flow rate: 2 L/MIN (06/09/23 0816) Supplemental O2 Delivery: Nasal Cannula (06/09/23 08) Vital Signs Last 24 Hours: Systolic BP: @SBPMAXR(24)@Temperature: Temp Av.3 C (97.4 F) Min: 36.3 C (97.3 F) Max: 36.4 C (97.5 F) Pulse: Pulse Av.3 Min: 59 Max: 63 Respirations: Resp Av Min: 16 Max: 16 SpO2: SpO2 Av % Min: 96 % Max: 98 % General: No acute distress. A+Ox3. HEENT: Normocephalic. Atraumatic. PERRL. EOMI. Conjunctiva and sclera clear. NECK: No carotid bruits. No JVD. Carotid upstrokes are brisk. Heart: RRR. S1 and S2 noted. No murmur. No rubs or gallops. PMI non displaced. Lungs: Diminished to auscultation. No wheezes.No rhonchi. No rales. Abdomen: Normal bowel sounds. Soft. Nontender. No masses or organomegaly. No abdominal bruits. Obese Extremities: +2 LE edema. No clubbing or cyanosis. Pulses: radial=2/4, posterior tibial=2/4, dorsalis pedis = 2/4. NEURO: No focal deficits. PSYCH: Appropriate affect and insight DATA: Labs & Imaging Reviewed Below: Echo 06/04/2023 The qualitative LV ejection fraction is 55-59% (normal). The right ventricular cavity is mildly dilated. The right ventricular systolic function is normal. Mild mitral stenosis is present. Mild mitral regurgitation is present. Mild tricuspid regurgitation is present. Moderate pulmonary hypertension is present. Electrocardiogram The tracing was reviewed and interpreted. Junctional rhythm 60 beats per minute right bundle-branch block Echocardiogram March 2023 EF 65-70% moderate left ventricular hypertrophy mild aortic valve stenosis iqxb-gc-ilvueddg mitral valve regurgitation moderate tricuspid regurgitation and right ventricular systolic pressure of 30-40 mm Hg IMPRESSION: 63-year-old female with acute on chronic diastolic CHF. Has mixed valvular insufficiency including mild MR and TR and mild mitral stenosis. She does have moderate pulmonary hypertension. Known chronic kidney disease with a baseline creatinine around 2. Elevated troponin secondary to demand ischemia. PLAN: -Fluid status is difficult to assess due to her morbid obesity. -Patient remains markedly volume overloaded. -Has a pruett in place for accurate I&O. -4L since admission. -Continue IV Lasix 100 mg BID. -Please document accurate I&Os -Monitor and replace electrolytes as needed. (Recommend K > 4.0 & Mag > 2.0) -Please record daily weights -2L fluid restriction -2 gm sodium restriction -Please apply compression stockings or alfonso wraps first thing in the morning and remove at night. Repeat daily. -Encourage patient to elevate lower extremities throughout the day. -Consider screening for obstructive sleep apnea prior to discharge as well as needed for supplemental oxygen therapy. Case discussed and coordinated with Dr. Welch. Please see Dr. Welch notes for further recommendations. I spent a total of 40 minutes coordinating, documenting, and providing care for this patient excluding time spent in the performance of separately billed services or time spent by another provider/QHP. SANDRA Meadows, Department of Cardiology This chart was completed in part utilizing [employer] Voice Recognition Software. Grammatical errors, random word insertions, prounoun errors, and incomplete sentences are an occasional consequence of this system due to software limitations, ambient noise, and hardware issues. Any formal questions or concerns about the content, text, or information contained within the body of this dictation should be directly addressed to the provider for clarification. Patient was seen and personally examined. Assessment and plan as outlined by advanced provider above. Case discussed and agree with all management as noted. I take responsibility for plan 63-year-old female with acute on chronic right /diastolic heart failure with still with persistent volume overload. Plan as outlined above I spent an additional 20 minutes coordinating, documenting, and providing care for this patient excluding time spent in the performance of separately billed services or time spent by another provider/QHP. * Leo Reich MD - 06/08/2023 12:51 PM EDT PROGRESS NOTE - Hospitalist [facility] [id number] Name: Alexandria Smith Location: [facility] [id number] Date: 06/08/2023 Time: 12:51 PM 63 year old female, HD# 5, admitted for acute HFpEF SUBJECTIVE: NAEO. Respiratory status stable on 2LNC. Vitals stable. No complaints ROS: As above. All other systems reviewed and negative PHYSICAL EXAMINATION: Most Recent Vital Signs: BP: 138 mmHg/73 mmHg (06/08/23708) Pulse: 58 (06/08/23708) Temp: 36.61 C (06/08/23708) Temp Summary: Temp Min: 36.3 C (97.3 F) Max: 36.6 C (97.9 F) SpO2: 98 % (06/08/23708) O2 flow rate: 2 L/MIN (06/08/23899) Supplemental O2 Delivery: Nasal Cannula (06/08/23899) General: obese, NAD Head: NC/AT Eyes: EOMI, sclera anicteric, conjunctiva normal ENT: MMM Neck: supple Cardiac: RRR, no murmurs, rubs, gallops Lungs: CTAB, no wheezes, rales, rhonchi Abdomen: soft, nt, nd Extr: 2+PE b/l Skin: warm and dry, no jaundice Neuro: Aox3, no focal deficits Psych: mood and affect appropriate Intake/Output Summary (Last 24 hours) at 06/08/2023 1251 Last data filed at 06/08/2023 0900 Gross per 24 hour Intake 829.19 ml Output 2600 ml Net -1770.81 ml STUDIES: Labs and other studies reviewed with pertinent findings noted below: Recent Results (from the past 24 hour(s)) CULTURE, BLOOD Collection Time: 06/07/23 4:03 PM Result Value Ref Range Blood Culture Growth No growth to date CULTURE, BLOOD Collection Time: 06/07/23 4:03 PM Result Value Ref Range Blood Culture Growth No growth to date GLUCOSE METER, POINT OF CARE Collection Time: 06/07/23 5:11 PM Result Value Ref Range Glucose Meter 156 (H) 70 - 120 mg/dL GLUCOSE METER, POINT OF CARE Collection Time: 06/07/23 9:36 PM Result Value Ref Range Glucose Meter 151 (H) 70 - 120 mg/dL BASIC METABOLIC PANEL Collection Time: 06/08/23 4:33 AM Result Value Ref Range BUN 33 (H) 6 - 20 mg/dL Creatinine 2.1 (H) 0.5 - 1.0 mg/dL Estimated Glomerular Filtration Rate 26 (L) >=60 mL/min Sodium 137 135 - 146 mmol/L Potassium 3.8 3.5 - 5.1 mmol/L Chloride 104 98 - 107 mmol/L CO2 23 22 - 32 mmol/L Anion Gap 10 7 - 15 mmol/L Glucose 142 (H) 70 - 120 mg/dL Calcium 8.7 8.4 - 10.2 mg/dL CBC Collection Time: 06/08/23 4:33 AM Result Value Ref Range WBC 8.45 4.00 - 10.80 K/uL RBC 2.91 3.85 - 5.15 M/uL HGB 7.9 (L) 12.0 - 15.3 g/dL HCT 26.7 (L) 36.0 - 45.2 % MCV 91.8 81.5 - 97.5 fL MCH 27.1 27.0 - 34.0 pg MCHC 29.6 32.0 - 36.0 g/dL RDW 18.6 11.5 - 15.5 % PLT 241 140 - 400 K/uL MPV 12.0 6.6 - 11.1 fL nRBCs 0 <=0 /100 WBCs GLUCOSE METER, POINT OF CARE Collection Time: 06/08/23 7:13 AM Result Value Ref Range Glucose Meter 143 (H) 70 - 120 mg/dL GLUCOSE METER, POINT OF CARE Collection Time: 06/08/23 11:26 AM Result Value Ref Range Glucose Meter 132 (H) 70 - 120 mg/dL IMAGING: XR CHEST 1 VIEW Result Date: 06/06/2023 IMPRESSION: 1. Persistent bilateral pulmonary edema, pneumonia, or both. 2. Pleural effusions not well seen on this portable exam. THIS DOCUMENT HAS BEEN ELECTRONICALLY SIGNED BY DEYANIRA DELEON MD IMPRESSION AND PLAN : Principal Problem: Acute on chronic congestive heart failure (HCC) (POA: Unknown) Active Problems: Hypertension (POA: Yes) Mitral valve insufficiency (POA: Unknown) Mild tricuspid regurgitation (POA: Unknown) Moderate pulmonary hypertension (HCC) (POA: Unknown) AV junctional rhythm (POA: Unknown) Chronic kidney disease, stage IV (severe) (HCC) (POA: Unknown) Class 3 severe obesity in adult (HCC) (POA: Unknown) Mild mitral stenosis (POA: Unknown) Resolved Problems: * No resolved hospital problems. * POA = Present On Admission 63yo female with obesity, CKD3, HTN, HFpEF, admitted for exacerbation of dHF, responding well to IVdiuresis. R heel wound representing OM, s/p bone biopsy by podiatry. Cx growing MSSA. Continue ancef. Exacerbation of dHF -continue lasix 100mg IV bid -cardiology following -continue vessel captain lisinopril -qshift vitals, I/O -qD CBC/BMP R Heel Wound, OM -podiatry following -cx growing MSSA -continue ancef FEN/GI: heart healthy VTE PPx: heparin CODE STATUS: Code Status: Full Code DISPO: Floor Time spent: 45 Mins, more than half with patient and remaining time for coordination of care with nurses and specialties Leo Reich MD * Krystin Posey CRNP - 06/08/2023 9:51 AM EDT Cardiology Progress Note [facility] [phone] Name: Alexandria Smith Location: [facility] [id number] Date: 06/08/2023 Time: 08:45 AM F/U: Heart Failure HPI: Alexandria Smith is a 63 year old with known history of chronic kidney disease stage 4, morbid obesity, diabetic foot ulcer, heart failure with preserved ejection fraction, uncontrolled diabetes history of metabolic encephalopathy hypertension dyslipidemia. She was diagnosed with heart failure this year when she was admitted at [facility] in March 2023. During her inpatient hospitalization required IV Lasix was discharged on Bumex 1 mg daily. She was also noted to be in junctional rhythm during that admission Echocardiogram March 2023 showed EF65-70% moderate left ventricular hypertrophy mild aortic valve stenosis [id number]-th-zedtqeuw mitral valve regurgitation moderate tricuspid regurgitation and right ventricular systolic pressure of 30-40 mm Hg. Discharged to [facility] with 2 mg Bumex daily. Presented to [facility] ED on 06/02/23 with abdominal pain and constipation. Noted to be significantly volume overloaded. No acute events noted overnight. PAST MEDICAL HISTORY: Past Medical History: Diagnosis Date Acute kidney injury (HCC) Asthma DM type 2, goal A1c below 7 HTN, goal below 140/90 Migraine without aura Muscular deconditioning Other specified acquired hypothyroidism Umbilical hernia PAST SURGICAL HISTORY: Past Surgical History: Procedure Laterality Date ANESTHESIA FOR UTERINE ENDOSCOPY BONE BIOPSY, TROCAR/NEEDLE,SUPERFIC Right 06/06/2023 BIOPSY BONE NEEDLE SUPERFICIAL performed by Lynnette Rasmussen DPM at OR [facility] INFORMATION wisdom teeth removed INJECTION CERVICAL/THORACIC 06/26/2014 INJECTION SPINE LUMBAR CERVICAL OR THORACIC performed by [facility] Cousins, DO at OR [facility] INJECTION CERVICAL/THORACIC 07/10/2014 INJECTION SPINE LUMBAR CERVICAL OR THORACIC performed by [facility] Cousins, DO at OR [facility] KNEE ARTHROSCOPY/REPAIR LIGAMENT 1998 Knee Scope,Aid Ant Cruciate Repair x 2 FAMILY HISTORY: Family History Problem Relation Age of Onset Diabetes Mother Diabetes Grandfather (Maternal) Diabetes Uncle (Unspecified) maternal Heart Disorder Father aneyurism Heart Disorder Grandmother (Paternal) aneyurism SOCIAL HISTORY: Social History Tobacco Use Smoking status: Every Day Types: Cigarettes Smokeless tobacco: Never Substance Use Topics Alcohol use: No Drug use: No ALLERGIES: Clarithromycin, Dextromethorphan, Doxylamine, Gctkufmbm-ofykkzkjhp-ub-apap, Amoxicillin, Latex, andSulfa antibiotics ROS: See HPI for pertinent positives. All others negative other than those noted in the HPI. CONSTITUTIONAL: No change in weight, No weakness, No fatigue and No fevers, No sweats or chills. PULMONARY: No cough, sputum, or hemoptysis, No wheezing, + shortness or breath and No recent changein breathing. CARDIOVASCULAR: No chest pain, + dyspnea on exertion, No edema, No palpitations and No syncope. GASTROINTESTINAL: No abdominal pain, No change in bowel habits, No significant heartburn, No nausea, No vomiting, No diarrhea, No constipation, No blood in stools or black tarry stools. No dysphagia. HEMATOLOGIC: No abnormal bleeding and No bruising. NEUROLOGICAL: Normal balance, No headaches and No weakness. PRIOR TO ADMISSION MEDICATIONS: Prior to Admission medications Medication Sig Last Dose Discont. levothyroxine sodium (SYNTHROID) 112 MCG Tablet Unknown HUMULIN R 100 UNIT/ML IJ SOLN 60 units twice daily Unknown LEVOXYL 175 MCG OR TABS 1 tablet daily Unknown OMEPRAZOLE 20 MG PO CPDR 1 tablet daily Unknown RANITIDINE HCL 150 MG PO CAPS 2 tablets daily Unknown SIMVASTATIN 40 MG PO TABS 1 tablet daily Unknown GLUCOPHAGE 500 MG PO TABS 2 tablets daily PHYSICAL EXAMINATION: Most Recent Vital Signs: BP: 138 mmHg/73 mmHg (06/08/23708) Pulse: 58 (06/08/23708) Temp: 36.61 C (06/08/23708) Temp Summary: Temp Min: 36.3 C (97.3 F) Max: 36.6 C (97.9 F) SpO2: 98 % (06/08/23708) O2 flow rate: 2 L/MIN (06/08/23708) Supplemental O2 Delivery: Nasal Cannula (06/08/23708) Vital Signs Last 24 Hours: Systolic BP: @SBPMAXR(24)@Temperature: Temp Av.5 C (97.7 F) Min: 36.3 C (97.3 F) Max:36.6 C (97.9 F) Pulse: Pulse Av.4 Min: 57 Max: 62 Respirations: Resp Av.7 Min: 16 Max: 18 SpO2: SpO2 Av % Min: 96 % Max: 98 % General: No acute distress. A+Ox3. HEENT: Normocephalic. Atraumatic. PERRL. EOMI. Conjunctiva and sclera clear. NECK: No carotid bruits. No JVD. Carotid upstrokes are brisk. Heart: RRR. S1 and S2 noted. No murmur. No rubs or gallops. PMI non displaced. Lungs: Diminished to auscultation. No wheezes.No rhonchi. No rales. Abdomen: Normal bowel sounds. Soft. Nontender. No masses or organomegaly. No abdominal bruits. Obese Extremities: +2 LE edema. No clubbing or cyanosis. Pulses: radial=2/4, posterior tibial=2/4, dorsalis pedis = 2/4. NEURO: No focal deficits. PSYCH: Appropriate affect and insight. DATA: Labs & Imaging Reviewed Below: Echo 06/04/2023 .The qualitative LV ejection fraction is 55-59% (normal). The right ventricular cavity is mildly dilated. The right ventricular systolic function is normal. Mild mitral stenosis is present. Mild mitral regurgitation is present. Mild tricuspid regurgitation is present. Moderate pulmonary hypertension is present. Electrocardiogram The tracing was reviewed and interpreted. Junctional rhythm 60 beats per minute right bundle-branch block Echocardiogram March 2023 EF 65-70% moderate left ventricular hypertrophy mild aortic valve stenosis djib-iq-iibhqyvq mitral valve regurgitation moderate tricuspid regurgitation and right ventricular systolic pressure of 30-40 mm Hg IMPRESSION: Acute on Chronic HFpEF Mild MR Mild TR Mild MS Moderate Pulmonary HTN Junctional Rhythm Morbid Obesity CKD Elevated Troponin secondary to Demand Ischemia PLAN: -Fluid status is difficult to assess due to her morbid obesity. -Patient appears vastly volume overloaded. -Has a pruett in place for accurate I&O. -2.6L since admission. -Continue IV Lasix 100 mg BID. -Please document accurate I&Os -Monitor and replace electrolytes as needed. (Recommend K > 4.0 & Mag > 2.0) -Please record daily weights -2L fluid restriction -2 gm sodium restriction -Please apply compression stockings or alfonso wraps first thing in the morning and remove at night. Repeat daily. -Encourage patient to elevate lower extremities throughout the day. Case discussed and coordinated with Dr. Harkins. Please see Dr. Harkins's notes for further recommendations. [facility] [place] Department of Cardiology Associated attestation - Janusz Harkins DO - 06/08/2023 10:10 AM EDT I have reviewed the advanced practitioner's documentation on the date of service referenced in note, and I agree with, and take responsibility for the plan of care. Patient seen and examined with Krystin FLORES. Patient continues to do well with IV diuresis. Remains significantly volume overloaded but now we have a Pruett to better assess her urine output. Continue IV diuresis until euvolemic and patient willneed to be established with our CHF Clinic upon discharge. At some point will need an ischemic evaluation but this can also be done as an outpatient. * Krystin Posey CRNP - 06/07/2023 1:41 PM EDT Cardiology Progress Note [facility] [id number] Name: Alexandria Smith Location: [facility] [id number] Date: 06/07/2023 Time: 1:03 PM F/U: Heart Failure HPI: Alexandria Smith is a 63 year old with known history of chronic kidney disease stage 4, morbid obesity, diabetic foot ulcer, heart failure with preserved ejection fraction, uncontrolled diabetes history of metabolic encephalopathy hypertension dyslipidemia. She was diagnosed with heart failure this year when she was admitted at [facility] in March 2023. During her inpatient hospitalization required IV Lasix was discharged on Bumex 1 mg daily. She was also noted to be in junctional rhythm during that admission Echocardiogram March 2023 showed EF65-70% moderate left ventricular hypertrophy mild aortic valve stenosis oysy-ih-rfabgxpj mitral valve regurgitation moderate tricuspid regurgitation and right ventricular systolic pressure of 30-40 mm Hg. Discharged to [facility] with 2 mg Bumex daily. Presented to [facility] ED on 06/02/23 with abdominal pain and constipation. Noted to be significantly volume overloaded. No acute events noted overnight. PAST MEDICAL HISTORY: Past Medical History: Diagnosis Date Acute kidney injury (HCC) Asthma DM type 2, goal A1c below 7 HTN, goal below 140/90 Migraine without aura Muscular deconditioning Other specified acquired hypothyroidism Umbilical hernia PAST SURGICAL HISTORY: Past Surgical History: Procedure Laterality Date ANESTHESIA FOR UTERINE ENDOSCOPY BONE BIOPSY, TROCAR/NEEDLE,SUPERFIC Right 06/06/2023 BIOPSY BONE NEEDLE SUPERFICIAL performed by Lynnette Rasmussen DPM at OR [facility] INFORMATION wisdom teeth removed INJECTION CERVICAL/THORACIC 06/26/2014 INJECTION SPINE LUMBAR CERVICAL OR THORACIC performed by [facility] Cousins, DO at OR [facility] INJECTION CERVICAL/THORACIC 07/10/2014 INJECTION SPINE LUMBAR CERVICAL OR THORACIC performed by [facility] Cousins, DO at OR [facility] KNEE ARTHROSCOPY/REPAIR LIGAMENT 1998 Knee Scope,Aid Ant Cruciate Repair x 2 FAMILY HISTORY: Family History Problem Relation Age of Onset Diabetes Mother Diabetes Grandfather (Maternal) Diabetes Uncle (Unspecified) maternal Heart Disorder Father aneyurism Heart Disorder Grandmother (Paternal) aneyurism SOCIAL HISTORY: Social History Tobacco Use Smoking status: Every Day Types: Cigarettes Smokeless tobacco: Never Substance Use Topics Alcohol use: No Drug use: No ALLERGIES: Clarithromycin, Dextromethorphan, Doxylamine, Pjgjyassk-yiessudxvb-ov-apap, Amoxicillin, Latex, andSulfa antibiotics ROS: See HPI for pertinent positives. All others negative other than those noted in the HPI. CONSTITUTIONAL: No change in weight, No weakness, No fatigue and No fevers, No sweats or chills. PULMONARY: No cough, sputum, or hemoptysis, No wheezing, + shortness or breath and No recent changein breathing. CARDIOVASCULAR: No chest pain, + dyspnea on exertion, No edema, No palpitations and No syncope. GASTROINTESTINAL: No abdominal pain, No change in bowel habits, No significant heartburn, No nausea, No vomiting, No diarrhea, No constipation, No blood in stools or black tarry stools. No dysphagia. HEMATOLOGIC: No abnormal bleeding and No bruising. NEUROLOGICAL: Normal balance, No headaches and No weakness. PRIOR TO ADMISSION MEDICATIONS: Prior to Admission medications Medication Sig Last Dose Discont. levothyroxine sodium (SYNTHROID) 112 MCG Tablet Unknown HUMULIN R 100 UNIT/ML IJ SOLN 60 units twice daily Unknown LEVOXYL 175 MCG OR TABS 1 tablet daily Unknown OMEPRAZOLE 20 MG PO CPDR 1 tablet daily Unknown RANITIDINE HCL 150 MG PO CAPS 2 tablets daily Unknown SIMVASTATIN 40 MG PO TABS 1 tablet daily Unknown GLUCOPHAGE 500 MG PO TABS 2 tablets daily PHYSICAL EXAMINATION: Most Recent Vital Signs: BP: 155 mmHg/75 mmHg (06/07/23 0700) Pulse: 58 (06/07/23 0755) Temp: 36.11 C (06/07/23 0700) Temp Summary: Temp Min: 36.1 C (97 F) Max: 36.6 C (97.9 F) SpO2: 97 % (06/07/23 07) O2 flow rate: 2 L/MIN (06/07/23 0800) Supplemental O2 Delivery: Nasal Cannula (06/07/23 0800) Vital Signs Last 24 Hours: Systolic BP: @SBPMAXR(24)@Temperature: Temp Av.3 C (97.4 F) Min: 36.1 C (97 F) Max: 36.6 C (97.9 F) Pulse: Pulse Av.4 Min: 56 Max: 65 Respirations: Resp Av.5 Min: 14 Max: 18 SpO2: SpO2 Av.1 % Min: 94 % Max: 100 % General: No acute distress. A+Ox3. HEENT: Normocephalic. Atraumatic. PERRL. EOMI. Conjunctiva and sclera clear. NECK: No carotid bruits. No JVD. Carotid upstrokes are brisk. Heart: RRR. S1 and S2 noted. No murmur. No rubs or gallops. PMI non displaced. Lungs: Diminished to auscultation. No wheezes.No rhonchi. No rales. Abdomen: Normal bowel sounds. Soft. Nontender. No masses or organomegaly. No abdominal bruits. Obese Extremities: +2 LE edema. No clubbing or cyanosis. Pulses: radial=2/4, posterior tibial=2/4, dorsalis pedis = 2/4. NEURO: No focal deficits. PSYCH: Appropriate affect and insight. DATA: Labs & Imaging Reviewed Below: Echo 06/04/2023 .The qualitative LV ejection fraction is 55-59% (normal). The right ventricular cavity is mildly dilated. The right ventricular systolic function is normal. Mild mitral stenosis is present. Mild mitral regurgitation is present. Mild tricuspid regurgitation is present. Moderate pulmonary hypertension is present. Electrocardiogram The tracing was reviewed and interpreted. Junctional rhythm 60 beats per minute right bundle-branch block Echocardiogram March 2023 EF 65-70% moderate left ventricular hypertrophy mild aortic valve stenosis zbep-vr-shhmybvt mitral valve regurgitation moderate tricuspid regurgitation and right ventricular systolic pressure of 30-40 mm Hg IMPRESSION: Acute on Chronic HFpEF Mild MR Mild TR Mild MS Moderate Pulmonary HTN Junctional Rhythm Morbid Obesity CKD Elevated Troponin secondary to Demand Ischemia PLAN: -Fluid status is difficult to assess due to her morbid obesity. -Patient appears vastly volume overloaded. -Has a pruett in place for accurate I&O. -2L urine output. -Continue IV Lasix 100 mg BID. -Please document accurate I&Os -Monitor and replace electrolytes as needed. (Recommend K > 4.0 & Mag > 2.0) -Please record daily weights -2L fluid restriction -2 gm sodium restriction -Please apply compression stockings or alfonso wraps first thing in the morning and remove at night. Repeat daily. -Encourage patient to elevate lower extremities throughout the day. Case discussed and coordinated with Dr. Harkins. Please see Dr. Harkins's notes for further recommendations. [facility] [place] Department of Cardiology Associated attestation - Janusz Harkins DO - 06/07/2023 2:06 PM EDT I have reviewed the advanced practitioner's documentation on the date of service referenced in note, and I agree with, and take responsibility for the plan of care. Patient seen and examined with Krystin FLORES. * Leo Reich MD - 06/07/2023 1:08 PM EDT PROGRESS NOTE - Hospitalist [facility] [phone] Name: Alexandria Smith Location: [facility] [id number] Date: 06/07/2023 Time: 1:08 PM 63 year old female, HD# 4, admitted for acute HFpEF SUBJECTIVE: NAEO. Respiratory status stable on 2LNC. Vitals stable. No complaints ROS: As above. All other systems reviewed and negative PHYSICAL EXAMINATION: Most Recent Vital Signs: BP: 155 mmHg/75 mmHg (06/07/23699) Pulse: 58 (06/07/23 0755) Temp: 36.11 C (06/07/23699) Temp Summary: Temp Min: 36.1 C (97 F) Max: 36.6 C (97.9 F) SpO2: 97 % (06/07/23699) O2 flow rate: 2 L/MIN (06/07/23799) Supplemental O2 Delivery: Nasal Cannula (06/07/23799) General: obese, NAD Head: NC/AT Eyes: EOMI, sclera anicteric, conjunctiva normal ENT: MMM Neck: supple Cardiac: RRR, no murmurs, rubs, gallops Lungs: CTAB, no wheezes, rales, rhonchi Abdomen: soft, nt, nd Extr: 2+PE b/l Skin: warm and dry, no jaundice Neuro: Aox3, no focal deficits Psych: mood and affect appropriate Intake/Output Summary (Last 24 hours) at 06/07/2023 1308 Last data filed at 06/07/2023 1100 Gross per 24 hour Intake 480 ml Output 2000 ml Net -1520 ml STUDIES: Labs and other studies reviewed with pertinent findings noted below: Recent Results (from the past 24 hour(s)) CULTURE, TISSUE, AEROBIC AND ANAEROBIC Collection Time: 06/06/23 1:38 PM Result Value Ref Range Culture Growth No aerobic or anaerobic growth Stain Description No polymorphonuclear leukocytes seen Stain Description No organisms seen GLUCOSE METER, POINT OF CARE Collection Time: 06/06/23 4:28 PM Result Value Ref Range Glucose Meter 142 (H) 70 - 120 mg/dL GLUCOSE METER, POINT OF CARE Collection Time: 06/06/23 9:31 PM Result Value Ref Range Glucose Meter 149 (H) 70 - 120 mg/dL GLUCOSE METER, POINT OF CARE Collection Time: 06/07/23 4:34 AM Result Value Ref Range Glucose Meter 123 (H) 70 - 120 mg/dL BASIC METABOLIC PANEL Collection Time: 06/07/23 5:38 AM Result Value Ref Range BUN 35 (H) 6 - 20 mg/dL Creatinine 2.2 (H) 0.5 - 1.0 mg/dL Estimated Glomerular Filtration Rate 25 (L) >=60 mL/min Sodium 138 135 - 146 mmol/L Potassium 3.9 3.5 - 5.1 mmol/L Chloride 105 98 - 107 mmol/L CO2 21 (L) 22 - 32 mmol/L Anion Gap 12 7 - 15 mmol/L Glucose 148 (H) 70 - 120 mg/dL Calcium 8.5 8.4 - 10.2 mg/dL CBC Collection Time: 06/07/23 5:38 AM Result Value Ref Range WBC 8.35 4.00 - 10.80 K/uL RBC 2.90 3.85 - 5.15 M/uL HGB 7.9 (L) 12.0 - 15.3 g/dL HCT 26.4 (L) 36.0 - 45.2 % MCV 91.0 81.5 - 97.5 fL MCH 27.2 27.0 - 34.0 pg MCHC 29.9 32.0 - 36.0 g/dL RDW 18.7 11.5 - 15.5 % PLT 246 140 - 400 K/uL MPV 12.1 6.6 - 11.1 fL nRBCs 0 <=0 /100 WBCs GLUCOSE METER, POINT OF CARE Collection Time: 06/07/23 7:45 AM Result Value Ref Range Glucose Meter 133 (H) 70 - 120 mg/dL GLUCOSE METER, POINT OF CARE Collection Time: 06/07/23 11:53 AM Result Value Ref Range Glucose Meter 169 (H) 70 - 120 mg/dL IMAGING: XR CHEST 1 VIEW Result Date: 06/06/2023 IMPRESSION: 1. Persistent bilateral pulmonary edema, pneumonia, or both. 2. Pleural effusions not well seen on this portable exam. THIS DOCUMENT HAS BEEN ELECTRONICALLY SIGNED BY DEYANIRA DELEON MD [facility] ANKLE BRACHIAL INDICES WITH PPG (DIABETIC FOOT/VASOSPASM) Result Date: 06/04/2023 : ED at rest cannot be calculated due to medial calcinosis. Exam limited by patient size. For the right lower extremity: The actual ankle brachial index could not be calculated due to medial calcinosis. Lower extremity Doppler Evaluation at rest is consistent with moderate arterial occlusive disease. For the left lower extremity: The actual ankle brachial index could not be calculated due to medial calcinosis. Lower extremity Doppler Evaluation at rest is consistent with mild arterial occlusive disease. IMPRESSION AND PLAN : Principal Problem: Acute on chronic congestive heart failure (HCC) (POA: Unknown) Active Problems: Hypertension (POA: Yes) Mitral valve insufficiency (POA: Unknown) Moderate tricuspid regurgitation (POA: Unknown) Moderate pulmonary hypertension (HCC) (POA: Unknown) AV junctional rhythm (POA: Unknown) Chronic kidney disease, stage IV (severe) (HCC) (POA: Unknown) Class 3 severe obesity in adult (HCC) (POA: Unknown) Mild mitral stenosis (POA: Unknown) Resolved Problems: * No resolved hospital problems. * POA = Present On Admission 63yo female with obesity, CKD3, HTN, HFpEF, admitted for exacerbation of dHF, responding well to IVdiuresis. R heel wound representing OM, s/p bone biopsy by podiatry. Pt presently stable, will await final cx to determine abx course. Exacerbation of dHF -continue lasix 100mg IV bid -cardiology following -continue vessel captain lisinopril -qshift vitals, I/O -qD CBC/BMP R Heel Wound, OM -podiatry following -biopsy done -await cx results FEN/GI: heart healthy VTE PPx: heparin CODE STATUS: Code Status: Full Code DISPO: Floor Time spent: 45 Mins, more than half with patient and remaining time for coordination of care with nurses and specialties Leo Reich MD * Lynnette Rasmussen DPM - 06/06/2023 1:19 PM EDT Pt seen and examined. Pt adoption specialist to OR for bone biopsy, right heel. All questions answered. Discussed risks of procedure including but not limited to loss of limb, loss of life, infection, allergic reaction, rejection of material such as implant, suture or other, chronic swelling (such as chronic lymphedema), damage of blood supply, blood clots, emboli, delayed healing or poor healing, scar (such as costmetic poor, painful , keloid, or functional restrictive scar), poor healing of bone (avascular necrosis, delayed, non , or mal union), failure of procedure, failure with incision or repair of soft tissue or bone, loss or failure of hardware or implant, bleeding, hematoma, seroma, condition or disability could (stay same , change, or get worse), enlargement of (toe, foot, or ankle), condition may come back or come back different, transfer lesion, stress fracture, paralysis/paraplegia/quadriplegia, stroke/heart attack/, chronic or permanent disability, brain damage, reactionto medication or anesthesia, need for additional surgery or treatment, permanent pain such as CRPS or RSD, neuroma, callous or other developed lesion or condition, fracture or dislocation of bone or joint, swollen/stiff/shorter/elevated/limited function (toe, foot, ankle), difficulty in walking/wearing shoes/other activity, infection and or osteo, over or under correction, floppy or stiff toe, sausage toe, lack of toe purchase or extension, varus or other deformity, nerve damage or numbness. Exp lained that I cannot guarantee time with recovery as well as effect with job, life or other, need for brace or other device, need for therapy or consultation and or treatment with other specialist orpain management. * Jose Martin Wolff MD - 06/06/2023 11:27 AM EDT PROGRESS NOTE - Hospitalist [facility]-[address] [phone] Name: Alexandria Smith Location: [facility] [id number] Date: 06/06/2023 Time: 11:27 AM 63 year old female, HD# 3, admitted for acute HFpEF Has R Heel wound with OM SUBJECTIVE: - No new complaints. Reports some orthopnea. Noted that she is urinating more but no accurate I/O'scharted - Denies any chest pain or sob at rest PHYSICAL EXAMINATION: Most Recent Vital Signs: BP: 142 mmHg/67 mmHg (06/06/23724) Pulse: 60 (06/06/23724) Temp: 36.39 C (06/06/23724) Temp Summary: Temp Min: 36.4 C (97.5 F) Max: 36.4 C (97.5 F) SpO2: 97 % (06/06/23724) O2 flow rate: 2 L/MIN (06/06/23929) Supplemental O2 Delivery: Nasal Cannula (06/06/23929) General: obese, NAD Head: NC/AT Eyes: EOMI, sclera anicteric, conjunctiva normal ENT: MMM Neck: supple Cardiac: RRR, no murmurs, rubs, gallops Lungs: CTAB, no wheezes, rales, rhonchi Abdomen: soft, nt, nd Extr: 2+PE b/l, no bruising Skin: warm and dry, no jaundice Neuro: Aox3, no focal deficits Psych: mood and affect appropriate Intake/Output Summary (Last 24 hours) at 06/06/2023 1127 Last data filed at 06/06/2023 1000 Gross per 24 hour Intake 450 ml Output 200 ml Net 250 ml STUDIES: Labs and other studies reviewed with pertinent findings noted below: Recent Results (from the past 24 hour(s)) GLUCOSE METER, POINT OF CARE Collection Time: 06/05/23 11:44 AM Result Value Ref Range Glucose Meter 154 (H) 70 - 120 mg/dL GLUCOSE METER, POINT OF CARE Collection Time: 06/05/23 4:20 PM Result Value Ref Range Glucose Meter 141 (H) 70 - 120 mg/dL GLUCOSE METER, POINT OF CARE Collection Time: 06/05/23 9:21 PM Result Value Ref Range Glucose Meter 166 (H) 70 - 120 mg/dL BASIC METABOLIC PANEL Collection Time: 06/06/23 5:32 AM Result Value Ref Range BUN 38 (H) 6 - 20 mg/dL Creatinine 2.3 (H) 0.5 - 1.0 mg/dL Estimated Glomerular Filtration Rate 23 (L) >=60 mL/min Sodium 137 135 - 146 mmol/L Potassium 4.1 3.5 - 5.1 mmol/L Chloride 106 98 - 107 mmol/L CO2 21 (L) 22 - 32 mmol/L Anion Gap 10 7 - 15 mmol/L Glucose 129 (H) 70 - 120 mg/dL Calcium 8.6 8.4 - 10.2 mg/dL CBC Collection Time: 06/06/23 5:32 AM Result Value Ref Range WBC 8.00 4.00 - 10.80 K/uL RBC 2.92 3.85 - 5.15 M/uL HGB 7.9 (L) 12.0 - 15.3 g/dL HCT 27.0 (L) 36.0 - 45.2 % MCV 92.5 81.5 - 97.5 fL MCH 27.1 27.0 - 34.0 pg MCHC 29.3 32.0 - 36.0 g/dL RDW 18.6 11.5 - 15.5 % PLT 252 140 - 400 K/uL MPV 12.1 6.6 - 11.1 fL nRBCs 0 <=0 /100 WBCs GLUCOSE METER, POINT OF CARE Collection Time: 06/06/23 7:38 AM Result Value Ref Range Glucose Meter 123 (H) 70 - 120 mg/dL IMAGING: VASC ANKLE BRACHIAL INDICES WITH PPG (DIABETIC FOOT/VASOSPASM) Result Date: 06/04/2023 : ED at rest cannot be calculated due to medial calcinosis. Exam limited by patient size. For the right lower extremity: The actual ankle brachial index could not be calculated due to medial calcinosis. Lower extremity Doppler Evaluation at rest is consistent with moderate arterial occlusive disease. For the left lower extremity: The actual ankle brachial index could not be calculated due to medial calcinosis. Lower extremity Doppler Evaluation at rest is consistent with mild arterial occlusive disease. MRI ANKLE RIGHT WO CONTRAST Result Date: 06/04/2023 IMPRESSION 1. D soft tissue wound is seen at the plantar aspect of the heel. Faint bone marrow edema is seen in the subjacent bone involving the plantar and posterior aspect of the calcaneus, which is suspicious for early osteomyelitis. Reactive edema related to acute plantar fasciitis could also appears similar. 2. Acute plantar fasciitis. 3. Diffuse soft tissue edema and swelling, which may represent cellulitis, venous stasis, lymphedema, or dependent edema in appropriate clinical setting. Limited assessment for soft tissue abscess. 4. Low-grade injury of the ATFL, PTFL, and CFL. 5. Small amount of fluid is noted about the flexor and peroneal tendons, which may be physiologic or very mild tenosynovitis. IMPRESSION AND PLAN : Principal Problem: Acute on chronic congestive heart failure (HCC) (POA: Unknown) Active Problems: Hypertension (POA: Yes) Mitral valve insufficiency (POA: Unknown) Moderate tricuspid regurgitation (POA: Unknown) Moderate pulmonary hypertension (HCC) (POA: Unknown) AV junctional rhythm (POA: Unknown) Chronic kidney disease, stage IV (severe) (HCC) (POA: Unknown) Class 3 severe obesity in adult (HCC) (POA: Unknown) Mild mitral stenosis (POA: Unknown) Resolved Problems: * No resolved hospital problems. * POA = Present On Admission 63yo female with obesity, CKD3, HTN, HFpEF, admitted for exacerbation of dHF. CT abdomen/ pelvis: Anasarca. Moderate bilateral pleural effusions and pulmonary edema. Exacerbation of dHF -Continue lasix 80mg IV bid -Obtain CXR -Place pruett. Pt agreeable -Cardiology following -Continue vessel captain lisinopril R Heel Wound with OM -Podiatry following -IR biopsy today - Needs PICC line and IV antibiotics after cultures are back Low cardiovascular risk for above procedure FEN/GI: heart healthy, NPO after 2400 VTE PPx: heparin CODE STATUS: Code Status: Full Code Time spent: 55 Mins. More than half with patient and remaining time for reviewing labs, medial records, coordination of care with nurses and specialities. Parson elements of the counseling and coordination of care included detail of treatment plan w/ pt and caregivers, content of pt and/or family discu ssions, parson tests or procedures reviewed/ordered in [facility] rec, outcomes of discussions with other healthcare providers * Vesta Israel PA-C - 06/06/2023 8:31 AM EDT PROGRESS NOTE - Cardiology [facility] [place] [id number] Name: Alexandria Smith Location: [facility] [id number] Date: 06/06/2023 Time: 8:31 AM SUBJECTIVE: Alexandria Smith is a 63 year old female that presented to [facility] 06/02/2023 with abdominal pain, constipation and volume overload. Remains on 2L 02 Breathing improving. She has been able to ambulate to the restroom OBJECTIVE: Most Recent Vital Signs: BP: 142 mmHg/67 mmHg (06/06/23724) Pulse: 60 (06/06/23724) Temp: 36.39 C (06/06/23724) Temp Summary: Temp Min: 36.4 C (97.5 F) Max: 36.4 C (97.5 F) SpO2: 97 % (06/06/23724) O2 flow rate: 2 L/MIN (06/06/23724) Supplemental O2 Delivery: Nasal Cannula (06/06/23724) Vital Signs Last 24 Hours: Systolic BP: Most Recent Systolic BP Av mmHg Min: 129 mmHg Max: 142 mmHg Temperature: Most Recent Temperature Av.4 C Min: 36.39 C Max: 36.39 C Pulse: Pulse Av.8 Min: 57 Max: 62 Respirations: Resp Av Min: 18 Max: 18 SpO2: SpO2 Av.7 % Min: 95 % Max: 98 % Physical Exam Constitutional: Appearance: Normal appearance. She is obese. HENT: Head: Normocephalic. Eyes: Pupils: Pupils are equal, round, and reactive to light. Cardiovascular: Rate and Rhythm: Normal rate and regular rhythm. Pulses: Normal pulses. Heart sounds: Normal heart sounds. Comments: +1-2 BLE edema Pulmonary: Effort: Pulmonary effort is normal. Breath sounds: Normal breath sounds. Abdominal: General: Bowel sounds are normal. Palpations: Abdomen is soft. Skin: General: Skin is warm and dry. Neurological: General: No focal deficit present. Mental Status: She is alert and oriented to person, place, and time. Psychiatric: Mood and Affect: Mood normal. LABS: Labs reviewed IMAGING: Echo 06/04/2023 The qualitative LV ejection fraction is 55-59% (normal). The right ventricular cavity is mildly dilated. The right ventricular systolic function is normal. Mild mitral stenosis is present. Mild mitral regurgitation is present. Mild tricuspid regurgitation is present. Moderate pulmonary hypertension is present. Echocardiogram 03/2023 EF 65-70% moderate left ventricular hypertrophy mild aortic valve stenosis [id number] mitral valve regurgitation moderate tricuspid regurgitation and right ventricular systolic pressure of 30-40 mm Hg IMPRESSION and PLAN: Acute on Chronic HFpEF Mild MR Mild TR Mild MS Moderate Pulmonary HTN Junctional Rhythm Morbid Obesity CKD Elevated Troponin secondary to Demand Ischemia Anemia -Patient remains grossly volume overloaded on examination although fluid status is difficult to assess due to morbid obesity. -Unfortunately output is inaccurate due to incontinence. She has been able to ambulate to bathroom today which should assist with more accurate I/O's. -Symptoms improving -Will increase IV lasix to 100mg BID. -Please document accurate I&Os -Please record daily weights. Standing weights are preferred unless patient has limited mobility. -Please apply compression stockings or alfonso wraps first thing in the morning and remove at night. Repeat daily. -Encourage patient to elevate lower extremities throughout the day. Vesta Israel PA-C Patient care discussed and coordinated with Dr. Harkins. Please refer to Dr. Harkins's notes for further recommendations. I spent a total of 38 minutes on the date of service in preparation, delivery and documentation of the care provided to Alexandria Smith excluding any time spent in the performance of separately billed services. Associated attestation - Janusz Harkins DO - 06/06/2023 2:55 PM EDT I have reviewed the advanced practitioner's documentation on the date of service referenced in note, and I agree with, and take responsibility for the plan of care. Patient was seen and examined withVesta Israel PA-C. * Lynnette Rasmussen DPM - 06/06/2023 7:55 AM EDT In to see patient and discuss bone biopsy procedure today. Explained she will likely need a PICC line for chcf IV abx. Follow up with [facility]. NPO except meds. Pt adoption specialist to OR for bone biopsy, right heel. Please call with any questions. * Leo Reich MD - 06/05/2023 1:37 PM EDT PROGRESS NOTE - Hospitalist [facility]-[address] [place] [phone] Name: Alexandria Smith Location: [facility] [id number] Date: 06/05/2023 Time: 1:37 PM 63 year old female, HD# 2, admitted for acute HFpEF SUBJECTIVE: NAEO. Respiratory status stable on 2LNC. Vitals stable ROS: As above. All other systems reviewed and negative PHYSICAL EXAMINATION: Most Recent Vital Signs: BP: 138 mmHg/66 mmHg (06/05/23721) Pulse: 60 (06/05/23721) Temp: 36.5 C (06/05/23721) Temp Summary: Temp Min: 36.4 C (97.5 F) Max: 36.9 C (98.4 F) SpO2: 99 % (06/05/23721) O2 flow rate: 2 L/MIN (06/04/230) Supplemental O2 Delivery: Nasal Cannula (06/05/23 0841) General: obese, NAD Head: NC/AT Eyes: EOMI, sclera anicteric, conjunctiva normal ENT: MMM Neck: supple Cardiac: RRR, no murmurs, rubs, gallops Lungs: CTAB, no wheezes, rales, rhonchi Abdomen: soft, nt, nd Extr: 2+PE b/l, no bruising Skin: warm and dry, no jaundice Neuro: Aox3, no focal deficits Psych: mood and affect appropriate Intake/Output Summary (Last 24 hours) at 06/05/2023 1337 Last data filed at 06/05/2023 1300 Gross per 24 hour Intake 560 ml Output 800 ml Net -240 ml STUDIES: Labs and other studies reviewed with pertinent findings noted below: Recent Results (from the past 24 hour(s)) ECHO, COMPLETE (2D), TRANS-THORACIC Collection Time: 06/04/23 4:16 PM Result Value Ref Range LEFT VENTRICULAR EJECTION FRACTION 55 % GLUCOSE METER, POINT OF CARE Collection Time: 06/04/23 4:21 PM Result Value Ref Range Glucose Meter 160 (H) 70 - 120 mg/dL GLUCOSE METER, POINT OF CARE Collection Time: 06/04/23 9:26 PM Result Value Ref Range Glucose Meter 141 (H) 70 - 120 mg/dL CBC Collection Time: 06/05/23 5:57 AM Result Value Ref Range WBC 8.22 4.00 - 10.80 K/uL RBC 2.82 3.85 - 5.15 M/uL HGB 8.1 (L) 12.0 - 15.3 g/dL HCT 26.1 (L) 36.0 - 45.2 % MCV 92.6 81.5 - 97.5 fL MCH 28.7 27.0 - 34.0 pg MCHC 31.0 32.0 - 36.0 g/dL RDW 18.6 11.5 - 15.5 % PLT 298 140 - 400 K/uL MPV 12.1 6.6 - 11.1 fL nRBCs 0 <=0 /100 WBCs BASIC METABOLIC PANEL Collection Time: 06/05/23 5:57 AM Result Value Ref Range BUN 39 (H) 6 - 20 mg/dL Creatinine 2.2 (H) 0.5 - 1.0 mg/dL Estimated Glomerular Filtration Rate 24 (L) >=60 mL/min Sodium 138 135 - 146 mmol/L Potassium 4.5 3.5 - 5.1 mmol/L Chloride 106 98 - 107 mmol/L CO2 22 22 - 32 mmol/L Anion Gap 10 7 - 15 mmol/L Glucose 133 (H) 70 - 120 mg/dL Calcium 8.7 8.4 - 10.2 mg/dL GLUCOSE METER, POINT OF CARE Collection Time: 06/05/23 7:25 AM Result Value Ref Range Glucose Meter 125 (H) 70 - 120 mg/dL GLUCOSE METER, POINT OF CARE Collection Time: 06/05/23 11:44 AM Result Value Ref Range Glucose Meter 154 (H) 70 - 120 mg/dL IMAGING: VASC ANKLE BRACHIAL INDICES WITH PPG (DIABETIC FOOT/VASOSPASM) Result Date: 06/04/2023 : ED at rest cannot be calculated due to medial calcinosis. Exam limited by patient size. For the right lower extremity: The actual ankle brachial index could not be calculated due to medial calcinosis. Lower extremity Doppler Evaluation at rest is consistent with moderate arterial occlusive disease. For the left lower extremity: The actual ankle brachial index could not be calculated due to medial calcinosis. Lower extremity Doppler Evaluation at rest is consistent with mild arterial occlusive disease. MRI ANKLE RIGHT WO CONTRAST Result Date: 06/04/2023 IMPRESSION 1. D soft tissue wound is seen at the plantar aspect of the heel. Faint bone marrow edema is seen in the subjacent bone involving the plantar and posterior aspect of the calcaneus, which is suspicious for early osteomyelitis. Reactive edema related to acute plantar fasciitis could also appears similar. 2. Acute plantar fasciitis. 3. Diffuse soft tissue edema and swelling, which may represent cellulitis, venous stasis, lymphedema, or dependent edema in appropriate clinical setting. Limited assessment for soft tissue abscess. 4. Low-grade injury of the ATFL, PTFL, and CFL. 5. Small amount of fluid is noted about the flexor and peroneal tendons, which may be physiologic or very mild tenosynovitis. XR FOOT 3 OR MORE VIEWS Result Date: 06/03/2023 IMPRESSION: Soft tissue swelling. Heel ulcer. No evidence of osteomyelitis. THIS DOCUMENT HAS BEEN ELECTRONICALLY SIGNED BY GT BROWN MD CT ABD/PELVIS WO IV/ORAL CONTRAST Result Date: 06/02/2023 IMPRESSION: 1. Anasarca and CHF. 2. Moderate bilateral pleural effusions right greater than left. 3. Moderate dependent compressive atelectasis right greater than left favored over pneumonia. 4. Moderate pulmonary edema. 5. Distal colonic diverticulosis without diverticulitis. 6. Trace abdominal free fluid. 7. Suspected early cirrhosis, could be cardiogenic. THIS DOCUMENT HAS BEEN ELECTRONICALLY SIGNED BY TEMITOPE EDWARDS MD IMPRESSION AND PLAN : Principal Problem: Acute on chronic congestive heart failure (HCC) (POA: Unknown) Active Problems: Hypertension (POA: Yes) Mitral valve insufficiency (POA: Unknown) Moderate tricuspid regurgitation (POA: Unknown) Moderate pulmonary hypertension (HCC) (POA: Unknown) AV junctional rhythm (POA: Unknown) Chronic kidney disease, stage IV (severe) (HCC) (POA: Unknown) Class 3 severe obesity in adult (HCC) (POA: Unknown) Mild mitral stenosis (POA: Unknown) Resolved Problems: * No resolved hospital problems. * POA = Present On Admission 63yo female with obesity, CKD3, HTN, HFpEF, admitted for exacerbation of dHF, responding well to diuresis. Will continue IV lasix per cardiology recs, plan for right heel wound biopsy per podiatry. Unclear baseline kidney function, cret presently stable at 2.2 Exacerbation of dHF -continue lasix 80mg IV bid -cardiology following -continue vessel captain lisinopril -qshift vitals, I/O -qD CBC/BMP R Heel Wound -podiatry following -biopsy tomorrow FEN/GI: heart healthy, NPO after 2400 VTE PPx: heparin CODE STATUS: Code Status: Full Code DISPO: Floor Time spent: 45 Mins, more than half with patient and remaining time for coordination of care with nurses and specialties Leo Reich MD * Krystin Posey CRNP - 06/05/2023 10:41 AM EDT Cardiology Progress Note [facility]-[address] [phone] Name: Alexandria Smith Location: [facility] [id number] Date: 06/05/2023 Time: 10:03 AM F/U: Heart Failure HPI: Alexandria Smith is a 63 year old with known history of chronic kidney disease stage 4, morbid obesity, diabetic foot ulcer, heart failure with preserved ejection fraction, uncontrolled diabetes history of metabolic encephalopathy hypertension dyslipidemia. She was diagnosed with heart failure this year when she was admitted at [facility] in March 2023. During her inpatient hospitalization required IV Lasix was discharged on Bumex 1 mg daily. She was also noted to be in junctional rhythm during that admission Echocardiogram March 2023 showed EF65-70% moderate left ventricular hypertrophy mild aortic valve stenosis [id number] mitral valve regurgitation moderate tricuspid regurgitation and right ventricular systolic pressure of 30-40 mm Hg. Discharged to [facility] with 2 mg Bumex daily. Presented to [facility] ED on 06/02/23 with abdominal pain and constipation. Noted to be significantly volume overloaded. No acute events noted overnight. PAST MEDICAL HISTORY: Past Medical History: Diagnosis Date Acute kidney injury (HCC) Asthma DM type 2, goal A1c below 7 HTN, goal below 140/90 Migraine without aura Muscular deconditioning Other specified acquired hypothyroidism Umbilical hernia PAST SURGICAL HISTORY: Past Surgical History: Procedure Laterality Date ANESTHESIA FOR UTERINE ENDOSCOPY INFORMATION wisdom teeth removed INJECTION CERVICAL/THORACIC 06/26/2014 INJECTION SPINE LUMBAR CERVICAL OR THORACIC performed by Héctor Marvin Cousins, DO at [place] [facility] INJECTION CERVICAL/THORACIC 07/10/2014 INJECTION SPINE LUMBAR CERVICAL OR THORACIC [facility] H[facility]ctor Shavonne [facility]REPAIR LIGAMENT 1998 Knee Scope,Aid Ant Cruciate Repair x 2 FAMILY HISTORY: Family History Problem Relation Age of Onset Diabetes Mother Diabetes Grandfather (Maternal) Diabetes Uncle (Unspecified) maternal Heart Disorder Father aneyurism Heart Disorder Grandmother (Paternal) aneyurism SOCIAL HISTORY: Social History Tobacco Use Smoking status: Every Day Types: Cigarettes Smokeless tobacco: Never Substance Use Topics Alcohol use: No Drug use: No ALLERGIES: Clarithromycin, Dextromethorphan, Doxylamine, Ffgioltuq-szzhtljyat-gs-apap, Amoxicillin, Latex, andSulfa antibiotics ROS: See HPI for pertinent positives. All others negative other than those noted in the HPI. CONSTITUTIONAL: No change in weight, No weakness, No fatigue and No fevers, No sweats or chills. PULMONARY: No cough, sputum, or hemoptysis, No wheezing, + shortness or breath and No recent changein breathing. CARDIOVASCULAR: No chest pain, + dyspnea on exertion, No edema, No palpitations and No syncope. GASTROINTESTINAL: No abdominal pain, No change in bowel habits, No significant heartburn, No nausea, No vomiting, No diarrhea, No constipation, No blood in stools or black tarry stools. No dysphagia. HEMATOLOGIC: No abnormal bleeding and No bruising. NEUROLOGICAL: Normal balance, No headaches and No weakness. PRIOR TO ADMISSION MEDICATIONS: Prior to Admission medications Medication Sig Last Dose Discont. levothyroxine sodium (SYNTHROID) 112 MCG Tablet Unknown HUMULIN R 100 UNIT/ML IJ SOLN 60 units twice daily Unknown LEVOXYL 175 MCG OR TABS 1 tablet daily Unknown OMEPRAZOLE 20 MG PO CPDR 1 tablet daily Unknown RANITIDINE HCL 150 MG PO CAPS 2 tablets daily Unknown SIMVASTATIN 40 MG PO TABS 1 tablet daily Unknown GLUCOPHAGE 500 MG PO TABS 2 tablets daily LISINOPRIL 2.5 MG PO TABS 1 tablet daily Patient not taking: Reported on 06/03/2023 Not Taking PHYSICAL EXAMINATION: Most Recent Vital Signs: BP: 138 mmHg/66 mmHg (06/05/23721) Pulse: 60 (06/05/23721) Temp: 36.5 C (06/05/23721) Temp Summary: Temp Min: 36.4 C (97.5 F) Max: 36.9 C (98.4 F) SpO2: 99 % (06/05/23721) O2 flow rate: 2 L/MIN (06/04/232229) Supplemental O2 Delivery: Nasal Cannula (06/05/23 08) Vital Signs Last 24 Hours: Systolic BP: @SBPMAXR(24)@Temperature: Temp Av.6 C (97.8 F) Min: 36.4 C (97.5 F) Max: 36.9 C (98.4 F) Pulse: Pulse Av.2 Min: 59 Max: 66 Respirations: Resp Av.3 Min: 18 Max: 20 SpO2: SpO2 Av % Min: 95 % Max: 99 % General: No acute distress. A+Ox3. HEENT: Normocephalic. Atraumatic. PERRL. EOMI. Conjunctiva and sclera clear. NECK: No carotid bruits. No JVD. Carotid upstrokes are brisk. Heart: RRR. S1 and S2 noted. No murmur. No rubs or gallops. PMI non displaced. Lungs: Diminished to auscultation. No wheezes.No rhonchi. No rales. Abdomen: Normal bowel sounds. Soft. Nontender. No masses or organomegaly. No abdominal bruits. Obese Extremities: +2 LE edema. No clubbing or cyanosis. Pulses: radial=2/4, posterior tibial=2/4, dorsalis pedis = 2/4. NEURO: No focal deficits. PSYCH: Appropriate affect and insight. DATA: Labs & Imaging Reviewed Below: Echo 06/04/2023 .The qualitative LV ejection fraction is 55-59% (normal). The right ventricular cavity is mildly dilated. The right ventricular systolic function is normal. Mild mitral stenosis is present. Mild mitral regurgitation is present. Mild tricuspid regurgitation is present. Moderate pulmonary hypertension is present. Electrocardiogram The tracing was reviewed and interpreted. Junctional rhythm 60 beats per minute right bundle-branch block Echocardiogram March 2023 EF 65-70% moderate left ventricular hypertrophy mild aortic valve stenosis [id number]-[id number]-lpyxqbfi mitral valve regurgitation moderate tricuspid regurgitation and right ventricular systolic pressure of 30-40 mm Hg IMPRESSION: Acute on Chronic HFpEF Mild MR Mild TR Mild MS Moderate Pulmonary HTN Junctional Rhythm Morbid Obesity CKD Elevated Troponin secondary to Demand Ischemia PLAN: -Fluid status is difficult to assess due to her morbid obesity. -Patient looks vastly volume overloaded. -Per I&O she has only put out 800 mL of urine. She has also been incontinent at times. ContinueIV diuresis. -Consider transitioning to Lasix infusion if no improvement tomorrow. -Please document accurate I&Os -Monitor and replace electrolytes as needed. (Recommend K > 4.0 & Mag > 2.0) -Please record daily weights -2L fluid restriction -2 gm sodium restriction -Please apply compression stockings or alfonso wraps first thing in the morning and remove at night. Repeat daily. -Encourage patient to elevate lower extremities throughout the day. Case discussed and coordinated with Dr. Harkins. Please see Dr. Harkins's notes for further recommendations. [facility] [place] Department of Cardiology Associated attestation - Janusz Harkins DO - 06/05/2023 1:34 PM EDT I have reviewed the advanced practitioner's documentation on the date of service referenced in note, and I agree with, and take responsibility for the plan of care. Patient seen and examined with Krystin FLORES. * Krystin Posey CRNP - 06/04/2023 11:32 AM EDT Cardiology Progress Note [facility] [phone] Name: Alexandria Smith Location: [facility] [id number] Date: 06/04/2023 Time: 11:33 AM F/U: Heart Failure HPI: Alexandria Smith is a 63 year old with known history of chronic kidney disease stage 4, morbid obesity, diabetic foot ulcer, heart failure with preserved ejection fraction, uncontrolled diabetes history of metabolic encephalopathy hypertension dyslipidemia. She was diagnosed with heart failure this year when she was admitted at [facility] in March 2023. During her inpatient hospitalization required IV Lasix was discharged on Bumex 1 mg daily. She was also noted to be in junctional rhythm during that admission Echocardiogram March 2023 showed EF65-70% moderate left ventricular hypertrophy mild aortic valve stenosis [id number] mitral valve regurgitation moderate tricuspid regurgitation and right ventricular systolic pressure of 30-40 mm Hg. Discharged to [facility] with 2 mg Bumex daily. Presented to [facility] ED on 06/02/23 with abdominal pain and constipation. Noted to be significantly volume overloaded. No acute events noted overnight. PAST MEDICAL HISTORY: Past Medical History: Diagnosis Date Acute kidney injury (HCC) Asthma DM type 2, goal A1c below 7 HTN, goal below 140/90 Migraine without aura Muscular deconditioning Other specified acquired hypothyroidism Umbilical hernia PAST SURGICAL HISTORY: Past Surgical History: Procedure Laterality Date ANESTHESIA FOR UTERINE ENDOSCOPY INFORMATION wisdom teeth removed INJECTION CERVICAL/THORACIC 06/26/2014 INJECTION SPINE LUMBAR CERVICAL OR THORACIC performed by Héctor Marvin Cousins, DO at OR [facility] INJECTION CERVICAL/THORACIC 07/10/2014 INJECTION SPINE LUMBAR CERVICAL OR THORACIC performed by Héctor Marvin Cousins, DO at OR [facility] KNEE ARTHROSCOPY/REPAIR LIGAMENT 1998 Knee Scope,Aid Ant Cruciate Repair x 2 FAMILY HISTORY: Family History Problem Relation Age of Onset Diabetes Mother Diabetes Grandfather (Maternal) Diabetes Uncle (Unspecified) maternal Heart Disorder Father aneyurism Heart Disorder Grandmother (Paternal) aneyurism SOCIAL HISTORY: Social History Tobacco Use Smoking status: Every Day Types: Cigarettes Smokeless tobacco: Never Substance Use Topics Alcohol use: No Drug use: No ALLERGIES: Clarithromycin, Dextromethorphan, Doxylamine, Kcjxnnkmz-duhpdpqdcs-ys-apap, Amoxicillin, Latex, andSulfa antibiotics ROS: See HPI for pertinent positives. All others negative other than those noted in the HPI. CONSTITUTIONAL: No change in weight, No weakness, No fatigue and No fevers, No sweats or chills. PULMONARY: No cough, sputum, or hemoptysis, No wheezing, + shortness or breath and No recent changein breathing. CARDIOVASCULAR: No chest pain, + dyspnea on exertion, No edema, No palpitations and No syncope. GASTROINTESTINAL: No abdominal pain, No change in bowel habits, No significant heartburn, No nausea, No vomiting, No diarrhea, No constipation, No blood in stools or black tarry stools. No dysphagia. HEMATOLOGIC: No abnormal bleeding and No bruising. NEUROLOGICAL: Normal balance, No headaches and No weakness. PRIOR TO ADMISSION MEDICATIONS: Prior to Admission medications Medication Sig Last Dose Discont. levothyroxine sodium (SYNTHROID) 112 MCG Tablet Unknown HUMULIN R 100 UNIT/ML IJ SOLN 60 units twice daily Unknown LEVOXYL 175 MCG OR TABS 1 tablet daily Unknown OMEPRAZOLE 20 MG PO CPDR 1 tablet daily Unknown RANITIDINE HCL 150 MG PO CAPS 2 tablets daily Unknown SIMVASTATIN 40 MG PO TABS 1 tablet daily Unknown GLUCOPHAGE 500 MG PO TABS 2 tablets daily LISINOPRIL 2.5 MG PO TABS 1 tablet daily Patient not taking: Reported on 06/03/2023 Not Taking PHYSICAL EXAMINATION: Most Recent Vital Signs: BP: 145 mmHg/67 mmHg (06/04/23 1122) Pulse: 63 (06/04/23 1122) Temp: 36.5 C (06/04/23 1122) Temp Summary: Temp Min: 36.2 C (97.2 F) Max: 36.5 C (97.7 F) SpO2: 97 % (06/04/23 112) O2 flow rate: 2 L/MIN (06/04/23 112) Supplemental O2 Delivery: Nasal Cannula (06/04/23 112) Vital Signs Last 24 Hours: Systolic BP: @SBPMAXR(24)@Temperature: Temp Av.4 C (97.5 F) Min: 36.2 C (97.2 F) Max: 36.5 C (97.7 F) Pulse: Pulse Av.8 Min: 57 Max: 65 Respirations: Resp Av.4 Min: 20 Max: 22 SpO2: SpO2 Av % Min: 93 % Max: 98 % General: No acute distress. A+Ox3. HEENT: Normocephalic. Atraumatic. PERRL. EOMI. Conjunctiva and sclera clear. NECK: No carotid bruits. No JVD. Carotid upstrokes are brisk. Heart: RRR. S1 and S2 noted. No murmur. No rubs or gallops. PMI non displaced. Lungs: Diminished to auscultation. No wheezes.No rhonchi. No rales. Abdomen: Normal bowel sounds. Soft. Nontender. No masses or organomegaly. No abdominal bruits. Obese Extremities: +2 LE edema. No clubbing or cyanosis. Pulses: radial=2/4, posterior tibial=2/4, dorsalis pedis = 2/4. NEURO: No focal deficits. PSYCH: Appropriate affect and insight. DATA: Labs & Imaging Reviewed Below: Electrocardiogram The tracing was reviewed and interpreted. Junctional rhythm 60 beats per minute right bundle-branch block Echocardiogram March 2023 EF 65-70% moderate left ventricular hypertrophy mild aortic valve stenosis [id number] mitral valve regurgitation moderate tricuspid regurgitation and right ventricular systolic pressure of 30-40 mm Hg IMPRESSION: Acute on Chronic HFpEF Mild-Moderate MR Moderate TR Mild Pulmonary HTN Junctional Rhythm Morbid Obesity CKD Elevated Troponin secondary to Demand Ischemia PLAN: -Fluid status is difficult to assess due to her morbid obesity. -Patient looks vastly volume overloaded. Continue IV diuresis. -Unfortunately there is no I & O documented. -Please document accurate I&Os -Monitor and replace electrolytes as needed. (Recommend K > 4.0 & Mag > 2.0) -Please record daily weights -2L fluid restriction -2 gm sodium restriction -Please apply compression stockings or alfonso wraps first thing in the morning and remove at night. Repeat daily. -Encourage patient to elevate lower extremities throughout the day. Case discussed and coordinated with Dr. Harkins. Please see Dr. Harkins's notes for further recommendations. [facility] [place] Department of Cardiology Associated attestation - Rima HarkinsDO mimi - 06/05/2023 1:34 PM EDT I have reviewed the advanced practitioner's documentation on the date of service referenced in note, and I agree with, and take responsibility for the plan of care. Patient seen and examined with Krystin FLORES. * Vazquez Moura MD - 06/04/2023 10:33 AM EDT Images from the original note were not included. [facility] [id number] INTERVAL HISTORY: 63-year-old female with a past medical history of morbid obesity, CKD stage 3, hypertension, type 2diabetes with right foot ulcer, hypothyroidism, fibromyalgia, dyslipidemia, anemia of chronic disease admitted for for acute exacerbation of chronic diastolic heart failure. Patient reports her shortness of breath is better but she still on supplemental oxygen No chest pain, no wheezing, no nausea vomiting diarrhea Objective Physical Exam Most Recent Vital Signs: BP: 159 mmHg/66 mmHg (06/04/23 07) Pulse: 63 (06/04/23 07) Temp: 36.39 C (06/04/23731) Temp Summary: Temp Min: 36.2 C (97.2 F) Max: 36.5 C (97.7 F) SpO2: 98 % (06/04/23731) O2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 mobility deficit, bed mobility deficit, decreased strength, decreased endurance, and impaired balance. Minimal or moderate modification of the functional task was necessary to complete the evaluation. Deficits Requiring O.T. Treatment: Deficits requiring O.T. treatment needs: ADL/self-care;Balance;Endurance;Functional mobility;Upper extremity strength;Weakness;Safety (06/06/23 1016) Goals: Bathing: Upper: minimal assistance (pt does 75%). Lower: minimal assistance (pt does 75%) Dressing: Upper: supervision. Lower: moderate assistance (pt does 50%). Bed Mobility with: Supine to Sit: minimal assistance (pt does 75%) Sit to supine: moderate assistance (pt does 50%). Transfers with: Toilet: supervision (with cues) Bed to Chair/Wheelchair: supervision (with cues). Demonstrates toileting at supervision Goal Time Frame: 1-10 sessions Assessment: Ms. Smith was seen at bedside for OT evaluation. She required mod- totalA for bed mobility2/2 difficulty lifting/moving BLE. Pt demonstrated functional transfers and ambulation to/from the bathroom using a RW with CGA. She also reported/demonstrated needing SPV-modA for UB ADLs and CG-totalA for LB ADLs. Pt noted new difficulty with hygiene after toileting, so she was issued/educated ontoilet aid, which she trialed with SPV/CGA. Pt completed UE strengthening exercises at EOB/supine and required frequent rest breaks 2/2 fatigue. SpO2 98% on 2L duirng activity. Pt is well below her functional baseline and she has limited assistance at home. Would consider post-acute care services which may include home health, snf, outpatient therapy, or inpatient rehab. The level of care will be determined in collaboration with the patient, family/caregiver, and care team members. AM-PAC score: 15. A portion of this AM-PAC assessment was not scored based on functional assessment, but rather by clinical decision making based on current findings and/ or prior level of function. Please refer to future OT AM-PAC calculations of functional ability as they become available. Treatment Plan: Safety, Bed mobility training, Functional Ambulation, Transfer training, Upper extremity strengthening, Balance activities, ADL training, and Endurance. Anticipated Frequency (on eval): 1 to 3 times per week (06/06/23 1016) AM-PAC Help From Another Person Eating Meals: A little (06/06/23 1016) Help From Another Person Taking Care of Personal Grooming: A little (06/06/23 1016) Help From Another Person To Put On/Take Off Upper Body Clothing: A little (06/06/23 1016) Help From Another Person To Put On/Take Off Lower Body Clothing: Total (06/06/23 1016) Help From Another Person Toileting: A little (06/06/23 1016) Help From Another Person Bathing: A lot (06/06/23 1016) OT AM-PAC Score: 15 (06/06/23 1016) OT AM-PAC t-Scale Score: 34.69 (06/06/23 1016) HLM (Highest Level of Mobility) Goal: Level 4 move to chair/commode (06/06/23 0930) * Shane Curry, PT - 06/04/2023 2:15 PM EDTAssociated Order(s): ADULT PHYSICAL THERAPY CONSULT IP PHYSICAL THERAPY - Physical Therapy [facility] [address] [place] [address] Name: Alexandria Simth Location: [facility] [id number] Date: 06/04/2023 Time: 2:54 PM Alexandria Smith is a/an 63 year old female. Per HPI: 63-year-old female with a past medical history of morbid obesity, CKD stage 3, hypertension, type 2 diabetes with right foot ulcer, hypothyroidism, fibromyalgia, dyslipidemia, anemia of chronic disease presents to the ED with abdominal pain and chest pain. Patient states chest pain is 2-3 on 10 starts in the lower abdomen area and radiates up into the neck but only when she is flat- she feels like the fluid is causing the pain. If she is propped up thepain goes away almost instantly Present for a few days Report some shortness of breath Worse with activity and better with rest Was at [facility] for congestive heart failure exacerbation 2 weeks ago and was diuresed and discharged to [facility] on supplemental oxygen . Patient is unsure what medications she takes. Patient feels she has impacted stool and this feels like previous episodes She has gained about 50 lb in the past few months Patient Status: Inpatient Insurance: Payor: [employer] MEDICARE ADVANTAGE Plan: [employer] MEDICARE ADVANTAGE HMO Product Type: *No Product type* Patient Seen: at bedside, nursing cleared patient for therapy Patient Identified By: Name, ID Band and Date Diagnosis: weakness due to hypervolemia (06/04/231414) Status of treatment: Evaluation completed (06/04/231414) Orders: PT evaluation and treatment (06/04/231414) Weight Bearing Status: Weight bearing as tolerated (06/04/231414) Precautions: Safety;Falls (06/04/23 141) Total Treatment Time--free text: 27 (06/04/231414) Past Medical History: Past Medical History: Diagnosis Date Acute kidney injury (HCC) Asthma DM type 2, goal A1c below 7 HTN, goal below 140/90 Migraine without aura Muscular deconditioning Other specified acquired hypothyroidism Umbilical hernia Past Surgical History: Past Surgical History: Procedure Laterality Date ANESTHESIA FOR UTERINE ENDOSCOPY INFORMATION wisdom teeth removed INJECTION CERVICAL/THORACIC 06/26/2014 INJECTION SPINE LUMBAR CERVICAL OR THORACIC performed by Héctor B Cousins, DO at OR [facility] INJECTION CERVICAL/THORACIC 07/10/2014 INJECTION SPINE LUMBAR CERVICAL OR THORACIC performed by Héctor Marvin Cousins, DO at OR [facility] KNEE ARTHROSCOPY/REPAIR LIGAMENT 1998 Knee Scope,Aid Ant Cruciate Repair x 2 Subjective: Cooperative for PT consult Social History/Disposition Lives with: Alone (06/04/231414) Assistance available: No (06/04/231414) Dwelling type: Apartment (06/04/231414) Entry steps: None (06/04/231414) Inside steps: None (06/04/231414) Bedroom location: 1st floor (06/04/231414) Bath location: 1st floor full bath (06/04/231414) Prior Level of Function Reported by: Patient (06/04/231414) Ambulation: Ambulatory with device (06/04/231414) Ambulatory Device: Rolling walker (06/04/231414) Devices at home: Rolling walker (06/04/231414) Observations Consciousness: Alert (06/04/231414) Orientation: Oriented times 4 (06/04/231414) Psychosocial: Patient can communicate basic needs;Patient can converse in a social setting (06/04/231414) Other Findings: No (06/04/231414) Sitting Posture: Forward head;Rounded shoulders (06/04/231414) Standing Posture: Forward head;Rounded shoulders (06/04/231414) Pain: No complaints of pain Range of Motion Range of Motion: WFL, except (limited by body habitus) (06/04/231414) Strength Assessment Strength Assessment: Deficits noted (06/04/231414) WNL, except: LLE;RLE (06/04/231414) LLE: Hip;Knee;Ankle;4/5 (06/04/231414) RLE: Hip;4/5;Knee;Ankle;4-/5 (06/04/231414) Transfers Sit-Stand: Minimal Assistance (06/04/231414) Stand-Sit: Contact Guard (06/04/231414) Ambulation: Distance ambulated (feet): 25 Assistive Device: Rolling walker Assist: Contact Guard Balance Sit (Static): Good (06/04/231414) Sit (Dynamic): Fair (06/04/231414) Stand (Static): Fair (06/04/231414) Stand (Dynamic): Poor (06/04/231414) Patient and or Family Goal(s): to get well and to return home Patient Education Review of Precautions: Safety;Fall (06/04/231414) Safety Awareness: Patient verbalizes insight of current deficits;Patient demonstrates carryover of insight during functional tasks;Patient can communicate basic needs;Needs cueing supervision (06/04/231414) Preferred learning method: Combination (06/04/231414) Barriers to learning: Medical Status (06/04/231414) Method of Education: Verbalized to patient (06/04/231414) Topic of Education: Goals/plan of care and Fall prevention Method of Education: Verbal discussion and explanation provided to patient who verbalized understanding and or agreement of this information. Treatment Provided: Therapeutic Activities 12 minutes: transfer training toilet transfer training Evaluation Moderate Complexity 15 minutes - [id number]: Patient was cooperative, pleasant, motivated, and alert during treatment session. Moderate complexity evaluation performed and 1-2 personal factors or comorbidities were identified that will impact plan of care, including lives alone at home, obesity, and cardiac history. Patient presents with limitations in strength, bed mobility, transfers, gait, balance, endurance, and safety, which will impact plan of care. These limitations will be addressed by the goals set for this patient. Alarm Status Patient positioned in: Chair (06/04/231414) With: Call villeda in reach (06/04/231414) Treatment Status: Treatment at bedside (06/04/231414) Goals: Demonstrate Bed Mobility with: Supine to Sit: modified independent (with device or slow) Demonstrate Transfers with: Sit to stand: supervision (with cues) Demonstrate Ambulation: assistive device: rolling walker distance in feet: 50 level of assistance on level surface: supervision (with cues) Time Frame: 1-10 visits Assessment: PT consult completed this date. With nursing consent, all mobility was performed with patient on room air. Sp02 at rest was 94%. She was able to perform sit to stands with minimal assist and with stabilization of the rolling walker. She was able to ambulate a maximum distance of 25 feetwith a rolling walker with CGA. Sp02 after ambulating was 90%. Would consider post-acute care services which may include home health, snf, outpatient therapy, or inpatient rehab. The level of care will be determined in collaboration with the patient, family/caregiver, and care team members. Current PT AM-PAC score: 13. Deficits requiring P.T. treatment needs: Weakness;Endurance;Safety;Mobility;Lower extremity strength (06/04/23 1415) Equipment Needs: Treatment Plan: Bed mobility training, Transfer training, Gait training, and Strengthening exercises B LE's Anticipated Frequency (on eval): 3 to 5 times per week (06/04/23 1415) AM PAC Score with Stairs: 13 * Lynnette Rasmussen DPM - 06/04/2023 11:58 AM EDTAssociated Order(s): PODIATRY CONSULT IP Images from the original note were not included. CONSULT NOTE - PODIATRY [address] [address] Name: Alexandria Smith Location: [facility] [id number] Date: 06/04/2023 11:59 AM REQUESTING SERVICE: Internal Medicine REASON FOR CONSULT: "Foot wound" HPI: Alexandria Smith is a 63 year old female with PMH listed below. Podiatry was consulted for a wound to the right heel. The patient states that she follows with Wound Care given by an outside provider. She states that she has had the wound to the right heel since June of 2022. She states that the wound is secondary to pressure. She states that she does not walk much and is bed-bound at this time. The patient denies any pain at this time. She states that the wound is changed daily, but is unsure as to which Wound Care product are being applied to the wound at this time. Pt denies any other pedalcomplaints. Denies F/C/N/V/CP/SOB/Calf pain. Patient currently has a temp of 97.7F and WBC 7.72. PAST MEDICAL HISTORY: Past Medical History: Diagnosis Date Acute kidney injury (HCC) Asthma DM type 2, goal A1c below 7 HTN, goal below 140/90 Migraine without aura Muscular deconditioning Other specified acquired hypothyroidism Umbilical hernia PAST SURGICAL HISTORY: Past Surgical History: Procedure Laterality Date ANESTHESIA FOR UTERINE ENDOSCOPY INFORMATION wisdom teeth removed INJECTION CERVICAL/THORACIC 06/26/2014 INJECTION SPINE LUMBAR CERVICAL OR THORACIC performed by Héctor Marvin Cousins, DO at OR [facility] INJECTION CERVICAL/THORACIC 07/10/2014 INJECTION SPINE LUMBAR CERVICAL OR THORACIC performed by Héctor Marvin Cousins, DO at OR [facility] KNEE ARTHROSCOPY/REPAIR LIGAMENT 1998 Knee Scope,Aid Ant Cruciate Repair x 2 FAMILY HISTORY: Family History Problem Relation Age of Onset Diabetes Mother Diabetes Grandfather (Maternal) Diabetes Uncle (Unspecified) maternal Heart Disorder Father aneyurism Heart Disorder Grandmother (Paternal) aneyurism SOCIAL HISTORY: Social History Socioeconomic History Marital status: Spouse name: Not on file Number of children: Not on file Years of education: Not on file Highest education level: Not on file Occupational History Not on file Tobacco Use Smoking status: Every Day Types: Cigarettes Smokeless tobacco: Never Substance and Sexual Activity Alcohol use: No Drug use: No Sexual activity: Not Currently Other Topics Concern Not on file Social History Narrative Not on file Social Determinants of Health Financial Resource Strain: Not on file Food Insecurity: Not on file Transportation Needs: Not on file Physical Activity: Not on file Stress: Not on file Social Connections: Not on file Intimate Partner Violence: Not on file Housing Stability: Not on file ALLERGIES: Review of patient's allergies indicates: Allergen Reactions Clarithromycin Other Reaction(s): HEART RACES Palpitations Dextromethorphan Other Reaction(s): Hives Doxylamine Other Reaction(s): Hives Hwoagdfan-Uwmleuwrof-Ea-Apap Edema face/lips/tongue and Itching Amoxicillin Latex Sulfa Antibiotics rash, malaise VITALS: BP: 145 mmHg/67 mmHg (06/04/23 1122) Pulse: 63 (06/04/23 1122) Temp: 36.5 C (06/04/23 1122) Temp Summary: Temp Min: 36.2 C (97.2 F) Max: 36.5 C (97.7 F) SpO2: 97 % (06/04/23 1122) O2 flow rate: 2 L/MIN (06/04/23 1122) Supplemental O2 Delivery: Nasal Cannula (06/04/23 1122) VITAL SIGNS LAST 24 HRS: Systolic BP: Most Recent Systolic BP Av.4 mmHg Min: 129 mmHg Max: 159 mmHg Temperature: Most Recent Temperature Av.4 C Min: 36.22 C Max: 36.5 C Pulse: Pulse Av.8 Min: 57 Max: 65 Respirations: Resp Av.4 Min: 20 Max: 22 SpO2: SpO2 Av % Min: 93 % Max: 98 % ROS: A complete review of systems was negative unless otherwise stated in the HPI. LOWER EXTREMITY PHYSICAL EXAM: VASC: DP pulses non-palpable to BL lower extremities. PT pulses non-palpable to BL extremities. CRTis brisk to all digits of BL lower extremities . Pedal hair is absent to BL lower extremities. Temperature gradient is warm to warm from proximal tibia to foot of BL lower extremities. (-) varicosities to BL lower extremities. NEURO: Protective sensation is absent to BL lower extremities. Light touch sensation is absent to BL lower extremities. Gross motor function is intact to BL lower extremities. MMT withheld. ORTHO: Ankle ROM is diminished to BL lower extremities, with (-) pain. Digital ROM is diminished toBL lower extremities, with (-) pain. (-) POP to proximal BL calf muscle(s). 1st MTPJ ROM diminishedto BL lower extremities. No POP to the wound of the right heel. DERM: Skin color, turgor, and texture are unremarkable.(+) open lesions to R lower extremities. (-)signs of infection, including purulence, bogginess, malodor, or fluctuance to BL lower extremities.(+) edema to BL lower extremities. (-) erythema to BL lower extremities. (-) skin lesions present to BL lower extremities. Wound noted to the plantar aspect of the right heel measuring approximately 6.9 x 5.0 by 1.0 cm. Does probe to bone at this time. Unable to express any drainage at this time. Malodor noted to be emanating from the wound. No note of any fluctuance, bogginess crepitus at this time. Wound base consisting of fibrotic and granular tissue. No note of an increase in warmth. No note of any erythema with proximal streaking at this time. Left foot is unremarkable at this time. LABS/MICRODATA: Labs reviewed as indicated below: BLOOD COUNT: WBC, Hgb, Platelets (see below for most recent values): Lab Results Component Value Date/Time WBC 7.72 06/04/2023 05:58 AM WBC 14.40 (H) 12/03/2018 09:22 AM HGB 7.8 (L) 06/04/2023 05:58 AM HGB 13.2 12/03/2018 09:22 AM PLT 267 06/04/2023 05:58 AM PLT 307 12/03/2018 09:22 AM BUN, Creatinine, GFR (est.), Na+, K+, Cl-, CO2, Gluc, Ca2+(see below for most recent values): Lab Results Component Value Date/Time BUN 37 (H) 06/04/2023 05:57 AM BUN 10 11/19/2018 09:00 AM CREAT 2.1 (H) 06/04/2023 05:57 AM CREAT 0.9 11/19/2018 09:00 AM GFRESTIMATED >60.0 11/19/2018 09:00 AM NA 139 06/04/2023 05:57 AM NA 136 11/19/2018 09:00 AM POTASSIUM 4.3 06/04/2023 05:57 AM POTASSIUM 4.1 11/19/2018 09:00 AM CL 106 06/04/2023 05:57 AM CL 96 (L) 11/19/2018 09:00 AM CO2 21 (L) 06/04/2023 05:57 AM CO2 24 11/19/2018 09:00 AM CA 8.7 06/04/2023 05:57 AM CA 9.8 11/19/2018 09:00 AM COAGS: PT, INR (see below for most recent values): Lab Results Component Value Date/Time INR 1.3 (H) 06/04/2023 05:58 AM IMAGING/STUDIES: PROCEDURE INFORMATION: Exam: XR Right Foot Exam date and time: 06/03/2023 3:44 AM Age: 63 years old Clinical indication: Other: Open wound to base of right foot, images performed with bandage on foot; Additional info: Large open wound at the base of foot TECHNIQUE: Imaging protocol: Radiologic exam of the right foot. Views: 3 or more views. COMPARISON: DX XR KNEE 4 OR MORE VIEWS 06/01/2023 11:14 AM FINDINGS: Bones/joints: Small plantar calcaneal spur. No bone erosion or periosteal reaction. No fracture. Joint spaces are well-maintained. Soft tissues: Diffuse soft tissue swelling. Vascular calcification in soft tissues. Plantar heel ulcer. IMPRESSION IMPRESSION: Soft tissue swelling. Heel ulcer. No evidence of osteomyelitis. MRI right ankle Hyperintense signal on T2 Hypointense on T1 suggestive of OM of the right calcaneus. ED ordered IMPRESSION and RECOMMENDATIONS: Alexandria Smith is a 63 year old female who presents with a wound to the plantar aspect of the right heel. Pulses were nonpalpable. ED ordered for further workup. Wound is positive for probe to bone at this time. X-ray of the right foot was noted to be negative for any bony erosions or periosteal reaction which would be suggestive of osteomyelitis. However, an MRI of the right ankle was ordered and there appeared to be findings suggestive of osteomyelitis of the right calcaneus. It was believed that surgical intervention is indicated for a biopsy of the right calcaneus for further workup. Patient will be tentatively scheduled for surgical intervention on Sunday. Should there be positive find ings of osteomyelitis, the patient will require a PICC line. Nursing to change dressings Podiatry to continue following. Pt seen and evaluated with all questions and concerns addressed. Pt case discussed with Dr. Rasmussen WB status: WBAT Abx: Per Medicine Labs and imaging reviewed as above. Dressing(s) to iodoform packing DSD daily No need for urgent or emergent podiatric surgical intervention at this time. Podiatry to continue to follow patient while in-house. Can follow up with [facility] wound care center on discharge. Thank you for the consult. This note was completed using the dictation program Fluency Direct. As such, there may be misspellings, word substitutions, or other variations that should not change the essence of the clinical content of this encounter note. Necessary attempts were made to correct dictation errors. If there is need for further clarification, please direct questions to the author. I have discussed the patient's management with the medical trainee and agree with the note. Please refer to the documented findings and plan of care. This patient's visit today consisted of a service. I was readily available for immediate [id number] consultation and assistance. I have reviewed the medical history, physical examination, diagnosis, and plan. Lynnette Rasmussen DPM * Mirian Gamino CATHERINE Hannah - 06/04/2023 8:49 AM EDTAssociated Order(s): WOUND CONSULT IP Images from the original note were not included. Order Date:06/03/2023 Ordering User:ZIGGY BOWEN [[id number] Attending Provider:Alicja Mandel MD [[id number]] Authorizing Provider: Ziggy Bowen MD [[id number]] Department:EMERGENCY MEDICINE [facility][[id number]] Order Specific Information Order: WOUND CONSULT IP [CUSTOM: [id number]] Order #: [id number]: 1 Priority: Routine Class: Nursing Unit Reason for Consult: -> wound on foot Consulting Provider: -> Charley Provider Released on: 05/11 2:34 AM Priority: Routine Class: Nursing Unit Reason for Consult: -> wound on foot Consulting Provider: -> Charley Provider Released on: 06/03/2023 2:34 AM Wound Care consult done for Lt foot wound. HPI; Information obt from chart, and patient: 63-year-old female with a past medical history of morbid obesity, CKD stage 3, hypertension, type 2diabetes with right foot ulcer, hypothyroidism, fibromyalgia, dyslipidemia, anemia of chronic disease presents to the ED with abdominal pain and chest pain. Was at [facility] for congestive heart failure exacerbation 2 weeks ago and was diuresed and discharged to [facility] on supplemental oxygen . Wound care was asked to see pt by Dr. Jimenez for Lt foot wound. Pt also has consult with Podiatry. Dr. Rasmussen is on for today. Will see pt after Podiatry has seen her. NO need for wound care to see pt at this time. Will be available if wound care is needed after she is seen by Valery. Past medical history: Past Medical History: Diagnosis Date Acute kidney injury (HCC) Asthma DM type 2, goal A1c below 7 HTN, goal below 140/90 Migraine without aura Muscular deconditioning Other specified acquired hypothyroidism Umbilical hernia Past Surgical History: Procedure Laterality Date ANESTHESIA FOR UTERINE ENDOSCOPY INFORMATION wisdom teeth removed INJECTION CERVICAL/THORACIC 06/26/2014 INJECTION SPINE LUMBAR CERVICAL OR THORACIC performed by Héctor B Cousins, DO at OR [facility] INJECTION CERVICAL/THORACIC 07/10/2014 INJECTION SPINE LUMBAR CERVICAL OR THORACIC performed by Héctor Marvin Cousins, DO at OR [facility] KNEE ARTHROSCOPY/REPAIR LIGAMENT 1998 Knee Scope,Aid Ant [...] Not on file Tobacco Use Smoking status: Every Day Types: Cigarettes Smokeless tobacco: Never Substance and Sexual Activity Alcohol use: No Drug use: No Sexual activity: Not Currently Other Topics Concern [...] patient's allergies indicates: Allergen Reactions Clarithromycin Other Reaction(s): HEART RACES Palpitations Dextromethorphan Other Reaction(s): Hives Doxylamine Other Reaction(s): Hives Byubajhpn-Uxonuwsose-Zn-Apap Edema face/lips/tongue and Itching Amoxicillin Latex Sulfa Antibiotics rash, malaise Code status: Code Status: Full Code Eduar: 18 06/04/23 0800 Eduar Scale - Daily Sensory Perception 3 Moisture 3 Activity 3 Mobility 3 Nutrition 3 Friction and Shear 3 Eduar Score (auto-calculation) 18 Support surface: standard mattress, pillows. Routine repositioning past 24 hrs: no Moisture management past 24 hrs: moisture absorbent pads. Nutritional support: High Calorie/High Protein Supplement - Orders Placed This Encounter Procedures Heart Healthy Diet : Sodium: 2 gm --- Fluid Restriction (ml): 1999 Focused Wound Assessment: VS: BP 159/66 | Pulse 63 | Temp 36.4 C (97.5 F) (Temporal Artery) | Resp 22 | Ht 1.562 m (5' 1.5") | Wt (!) 160.1 kg (353 lb) | LMP 11/22/2002 | SpO2 98% | BMI 65.63 kg/m | BSA 2.64 m Review of Labs/Tests: Latest Reference Range & Units 06/04/23 05:58 CBC Rpt ! WBC 4.00 - 10.80 K/uL 7.72 RBC 3.85 - 5.15 M/uL 2.86 HGB 12.0 - 15.3 g/dL 7.8 (L) HCT 36.0 - 45.2 % 26.2 (L) MCV 81.5 - 97.5 fL 91.6 MCH 27.0 - 34.0 pg 27.3 MCHC 32.0 - 36.0 g/dL 29.8 RDW 11.5 - 15.5 % 18.7 PLT 140 - 400 K/uL 267 MPV 6.6 - 11.1 fL 12.0 !: Data is abnormal (L): Data is abnormally low Rpt: View report in Results Review for more information XR FOOT 3 OR MORE VIEWS Order: [id number] Status: Final result Visible to patient: Yes (not seen) Next appt: 07/11/2023 at 10:00 AM in *Cardio* (Aneta Ornelas PA-C) 0 Result Notes Details Reading Physician Reading Date Result Priority Gt Brown MD [phone] 06/03/2023 Narrative & Impression PROCEDURE INFORMATION: Exam: XR Right Foot Exam date and time: 06/03/2023 3:44 AM Age: 63 years old Clinical indication: Other: Open wound to base of right foot, images performed with bandage on foot; Additional info: Large open wound at the base of foot TECHNIQUE: Imaging protocol: Radiologic exam of the right foot. Views: 3 or more views. COMPARISON: DX XR KNEE 4 OR MORE VIEWS 06/01/2023 11:14 AM FINDINGS: Bones/joints: Small plantar calcaneal spur. No bone erosion or periosteal reaction. No fracture. Joint spaces are well-maintained. Soft tissues: Diffuse soft tissue swelling. Vascular calcification in soft tissues. Plantar heel ulcer. IMPRESSION IMPRESSION: Soft tissue swelling. Heel ulcer. No evidence of osteomyelitis. Interventions/treatments: Pt was not seen by wound care at this time. Will be available for wound care if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 is almost time for thenext dose, do not take the missed dose. Return to your normal schedule. Do not take 2 doses at one time. Contact your doctor if your symptoms do not improve or worsen after 2 weeks of using this medicine. Seek medical attention if you see any signs of a serious infection. These signs include pain, increasing redness or pus where this medicine is being used. Side Effects The following is a list of some common side effects from this medicine. Please speak with your doctor about what you should do if you experience these or other side effects. burning or stinging itching flaking or peeling skin skin irritation where medicine is applied Call your doctor or get medical help right away if you notice any of these more serious side effects: blistering or peeling of the skin fluid leaking from skin skin sores A few people may have an allergic reaction to this medicine. Symptoms can include difficulty breathing, skin rash, itching, swelling, or severe dizziness. If you notice any of these symptoms, seek medical help quickly. Extra Please speak with your doctor, nurse, or pharmacist if you have any questions about this medicine. [email or web address] IMPORTANT NOTE: This document tells you briefly how to take your medicine, but it does not tell youall there is to know about it. Your doctor or pharmacist may give you other documents about your medicine. Please talk to them if you have any questions. Always follow their advice. There is a more complete description of this medicine available in [place]. Scan this code on your smartphone or tablet or use the web address below. You can also ask your pharmacist for a printout. If you have any questions, please ask your pharmacist. The display and use of this drug information is subject to Terms of Use. Copyright(c) 2022 drumbi. [employer]. All rights reserved. This information is not intended as a substitute for professional medical care. Always follow your healthcare professional's instructions. * Pt Handout (on AVS) - Brisa Dennison RN - 06/13/2023 1:28 PM EDT Images from the original note were not included. [id number] Lisinopril Oral Tablet Brands: Prinivil Zestril Uses This medicine is used for the following purposes: diabetic complications heart attack heart failure high blood pressure kidney disease prevent migraine headaches Instructions This medicine may be taken with or without food. This medicine will work best if you take it at about the same time every day. Store at room temperature away from heat, light, and moisture. Do not keep in the bathroom. Talk to your doctor before eating foods with large amounts of potassium. Potassium is often found in salt substitutes. Your doctor may want you to reduce the amount of these foods. Tell your doctor if you have severe or persistent sweating, diarrhea or vomiting. These can increase your risk of a serious side effect. It is important that you keep taking each dose of this medicine on time even if you are feeling well. If you forget to take a dose on time, take it as soon as you remember. If it is almost time for thenext dose, do not take the missed dose. Return to your normal schedule. Do not take 2 doses at one time. Drug interactions can change how medicines work or increase risk for side effects. Tell your healthcare providers about all medicines taken. Include prescription and yqpv-uql-tpafmjy medicines, vitamins, and herbal medicines. Speak with your doctor or pharmacist before starting or stopping any medicine. Tell your doctor if symptoms do not get better or if they get worse. Keep all appointments for medical exams and tests while on this medicine. Cautions Tell your doctor and pharmacist if you ever had an allergic reaction to a medicine. Do not use the medication any more than instructed. This medicine may cause dizziness or fainting. Do not stand or sit up quickly. Your ability to stay alert or to react quickly may be impaired by this medicine. Do not drive or operate machinery until you know how this medicine will affect you. Please check with your doctor before drinking alcohol while on this medicine. Contact your doctor if you notice a change in the amount or darkening of your urine. It is unknown if this medicine passes into breast milk. Ask your doctor before . This medicine can hurt a new baby in the womb. If you become while on this medicine, tell your doctor immediately. Your doctor may switch you to a different medicine. Do not share this medicine with anyone who has not been prescribed this medicine. Side Effects The following is a list of some common side effects from this medicine. Please speak with your doctor about what you should do if you experience these or other side effects. cough that does not go away dizziness lack of energy and tiredness headaches lightheadedness Call your doctor or get medical help right away if you notice any of these more serious side effects: swelling of the face, mouth, tongue or throat fainting fast, irregular, or slow heartbeat signs of liver damage (such as yellowing of eye or skin, dark urine, or unusual tiredness) muscle weakness urinating less often A few people may have an allergic reaction to this medicine. Symptoms can include difficulty breathing, skin rash, itching, swelling, or severe dizziness. If you notice any of these symptoms, seek medical help quickly. Extra Please speak with your doctor, nurse, or pharmacist if you have any questions about this medicine. [email or web address] IMPORTANT NOTE: This document tells you briefly how to take your medicine, but it does not tell youall there is to know about it. Your doctor or pharmacist may give you other documents about your medicine. Please talk to them if you have any questions. Always follow their advice. There is a more complete description of this medicine available in [place]. Scan this code on your smartphone or tablet or use the web address below. You can also ask your pharmacist for a printout. If you have any questions, please ask your pharmacist. The display and use of this drug information is subject to Terms of Use. Copyright(c) 2022 drumbi. 3987-0536 [employer]. All rights reserved. This information is not intended as a substitute for professional medical care. Always follow your healthcare professional's instructions. * Pt Handout (on AVS) - Brisa Dennison RN - 06/13/2023 1:28 PM EDT Images from the original note were not included. [id number] Insulin Glargine Injectable Solution Brands: Lantus, Semglee Uses For diabetes. Instructions This medicine is used by injecting it into the skin. Please ask your doctor, nurse or pharmacist for the correct places on your body where this medicine can be injected. This insulin should be used once a day. Use at the same time each day. This insulin does not need to be mixed before using. This insulin should be clear and colorless. Do not use if it appears discolored, thickened or contains any particles. Store unused insulin vials in the refrigerator until ready to use. Do not allow it to freeze. Remove the insulin from the refrigerator when you are ready to use it. Do not return the medicine to the refrigerator after you start using it. Discard the vial 28 days after removing from the refrigerator, even if there is insulin left in thevial. Throw away any insulin if it was frozen. Keep the insulin that you are using at room temperature and protected from light and heat. Discard any insulin if it is exposed to temperature greater than 86 F (30 C). Never use any insulin that has . Throw it away. This insulin should not be mixed with other insulins. Do not inject into skin that has lumps, pits, or is thickened. Change the location of the injection each time. Choose a location at least 1 inch from the last injection. Do not rub or massage the area where the injection was given. Tell your doctor and pharmacist about all your medicines. Include prescription and smay-kwu-gaduqpkjkulrezdp, vitamins, and herbal medicines. Before using insulin, you should be taught by your doctor or a certified control systems technician. Follow their instructions carefully. If you have not been trained, speak with your doctor before using thismedicine. Be sure to follow your regular meal plan and exercise as discussed with your doctor. It is very important that you use your medicine every day and that you do not miss any dose of yourinsulin. Have a discussion with your doctor about what you should do in case you miss an insulin dose. Cautions Tell your doctor and pharmacist if you ever had an allergic reaction to a medicine. Monitor your blood sugar as instructed by your doctor. Adjust the amount of insulin only as recommended by your doctor. Your ability to stay alert or to react quickly may be impaired by this medicine. Do not drive or operate machinery until you know how this medicine will affect you. Please check with your doctor before drinking alcohol while on this medicine. Tell the doctor or pharmacist if you are , planning to be , or . This medicine passes into breast milk. Ask your doctor before . Always carry an ID card or wear a medical alert bracelet showing that you are diabetic. Carry glucose tablets or hard candy with you in case you experience low blood sugar from the insulin. Symptoms of low blood sugar may include nausea, shaking, sweating, cold skin, fast heartbeat, hunger, and irritability. Do not start or stop any other medicines without first speaking to your doctor or pharmacist. Ask your pharmacist how to properly throw away used needles or syringes. Side Effects The following is a list of some common side effects from this medicine. Please speak with your doctor about what you should do if you experience these or other side effects. swelling of the legs, feet, and hands pain, redness, swelling near injection weight gain Call your doctor or get medical help right away if you notice any of these more serious side effects: dizziness numbness or tingling in hands and feet low blood sugar muscle cramps or weakness rapid heartbeat shakiness sweating blurring or changes of vision A few people may have an allergic reaction to this medicine. Symptoms can include difficulty breathing, skin rash, itching, swelling, or severe dizziness. If you notice any of these symptoms, seek medical help quickly. Extra Please speak with your doctor, nurse, or pharmacist if you have any questions about this medicine. [email or web address] IMPORTANT NOTE: This document tells you briefly how to take your medicine, but it does not tell youall there is to know about it. Your doctor or pharmacist may give you other documents about your medicine. Please talk to them if you have any questions. Always follow their advice. There is a more complete description of this medicine available in [place]. Scan this code on your smartphone or tablet or use the web address below. You can also ask your pharmacist for a printout. If you have any questions, please ask your pharmacist. The display and use of this drug information is subject to Terms of Use. Copyright(c) 2022 drumbi. [id number] [employer]. All rights reserved. This information is not intended as a substitute for professional medical care. Always follow your healthcare professional's instructions. * Pt Handout (on AVS) - Brisa Dennison RN - 06/13/2023 1:27 PM EDT [id number] Insulin Aspart, Human Injectable Solution Uses For diabetes. Instructions This medicine is used by injecting it into the skin. Please ask your doctor, nurse or pharmacist for the correct places on your body where this medicine can be injected. Please check with your doctor about when this insulin should be given with the meal. This insulin does not need to be mixed before using. This insulin should be clear and colorless. Do not use if it appears discolored, thickened or contains any particles. Store unused insulin vials in the refrigerator until ready to use. Do not allow it to freeze. Remove the insulin from the refrigerator when you are ready to use it. Do not return the medicine to the refrigerator after you start using it. Discard the vial 28 days after removing from the refrigerator, even if there is insulin left in thevial. Throw away any insulin if it was frozen. Keep the insulin that you are using at room temperature and protected from light and heat. Discard any insulin if it is exposed to temperature greater than 86 F (30 C). Never use any insulin that has . Throw it away. Do not inject into skin that has lumps, pits, or is thickened. Change the location of the injection each time. Choose a location at least 1 inch from the last injection. Tell your doctor and pharmacist about all your medicines. Include prescription and dart-kaj-hunejmvernkdppsd, vitamins, and herbal medicines. Before using insulin, you should be taught by your doctor or a certified control systems technician. Follow their instructions carefully. If you have not been trained, speak with your doctor before using thismedicine. Be sure to follow your regular meal plan and exercise as discussed with your doctor. It is very important that you use your medicine every day and that you do not miss any dose of yourinsulin. Have a discussion with your doctor about what you should do in case you miss an insulin dose. Cautions Tell your doctor and pharmacist if you ever had an allergic reaction to a medicine. Monitor your blood sugar as instructed by your doctor. Adjust the amount of insulin only as recommended by your doctor. Your ability to stay alert or to react quickly may be impaired by this medicine. Do not drive or operate machinery until you know how this medicine will affect you. Please check with your doctor before drinking alcohol while on this medicine. Tell the doctor or pharmacist if you are , planning to be , or . This medicine passes into breast milk. Ask your doctor before . Always carry an ID card or wear a medical alert bracelet showing that you are diabetic. Carry glucose tablets or hard candy with you in case you experience low blood sugar from the insulin. Symptoms of low blood sugar may include nausea, shaking, sweating, cold skin, fast heartbeat, hunger, and irritability. Do not start or stop any other medicines without first speaking to your doctor or pharmacist. Ask your pharmacist how to properly throw away used needles or syringes. Side Effects The following is a list of some common side effects from this medicine. Please speak with your doctor about what you should do if you experience these or other side effects. weight gain Call your doctor or get medical help right away if you notice any of these more serious side effects: dizziness swelling of the legs, feet, and hands low blood sugar rapid heartbeat shakiness sweating A few people may have an allergic reaction to this medicine. Symptoms can include difficulty breathing, skin rash, itching, swelling, or severe dizziness. If you notice any of these symptoms, seek medical help quickly. Extra Please speak with your doctor, nurse, or pharmacist if you have any questions about this medicine. IMPORTANT NOTE: This document tells you briefly how to take your medicine, but it does not tell youall there is to know about it. Your doctor or pharmacist may give you other documents about your medicine. Please talk to them if you have any questions. Always follow their advice. The display and use of this drug information is subject to Terms of Use. Copyright(c) 2022 drumbi. [id number] [employer]. All rights reserved. This information is not intended as a substitute for professional medical care. Always follow your healthcare professional's instructions. * Pt Handout (on AVS) - Brisa Dennison RN - 06/13/2023 1:23 PM EDT Images from the original note were not included. [id number] Hydroxyzine Oral Tablet Uses This medicine is used for the following purposes: agitation anxiety itching Instructions This medicine may be taken with or without food. Store at room temperature away from heat, light, and moisture. Do not keep in the bathroom. Drug interactions can change how medicines work or increase risk for side effects. Tell your healthcare providers about all medicines taken. Include prescription and zvln-wcp-uxspmbt medicines, vitamins, and herbal medicines. Speak with your doctor or pharmacist before starting or stopping any medicine. Tell your doctor if symptoms do not get better or if they get worse. Cautions Tell your doctor and pharmacist if you ever had an allergic reaction to a medicine. Do not use the medication any more than instructed. Your ability to stay alert or to react quickly may be impaired by this medicine. Do not drive or operate machinery until you know how this medicine will affect you. Please check with your doctor before drinking alcohol while on this medicine. Tell the doctor or pharmacist if you are , planning to be , or . Do not share this medicine with anyone who has not been prescribed this medicine. Side Effects The following is a list of some common side effects from this medicine. Please speak with your doctor about what you should do if you experience these or other side effects. constipation dizziness or drowsiness dry mouth Call your doctor or get medical help right away if you notice any of these more serious side effects: confusion fainting hallucinations (unusual thoughts, seeing or hearing things that are not real) fast or irregular heart beats mood changes seizures shakiness difficulty or discomfort urinating blurring or changes of vision A few people may have an allergic reaction to this medicine. Symptoms can include difficulty breathing, skin rash, itching, swelling, or severe dizziness. If you notice any of these symptoms, seek medical help quickly. Extra Please speak with your doctor, nurse, or pharmacist if you have any questions about this medicine. [email or web address] IMPORTANT NOTE: This document tells you briefly how to take your medicine, but it does not tell youall there is to know about it. Your doctor or pharmacist may give you other documents about your medicine. Please talk to them if you have any questions. Always follow their advice. There is a more complete description of this medicine available in [place]. Scan this code on your smartphone or tablet or use the web address below. You can also ask your pharmacist for a printout. If you have any questions, please ask your pharmacist. The display and use of this drug information is subject to Terms of Use. Copyright(c) 2022 drumbi. [employer]. All rights reserved. This information is not intended as a substitute for professional medical care. Always follow your healthcare professional's instructions. * Pt Handout (on AVS) - Brisa Dennison RN - 06/13/2023 1:22 PM EDT Images from the original note were not included. [id number] Cefazolin Injection Uses For treating bacterial infection. Instructions Carefully follow the instructions for preparing this medicine before injection. Check the medicine before each use. If the liquid medicine has any particles in it, appears discolored, or if the vial appears damaged, do not use it. Protect medicine from light. Speak with your nurse or pharmacist about how long the medicine can be stored safely at room temperature or in the refrigerator before it needs to be discarded. Never use any medicine that has . Space doses evenly to keep a steady amount of medicine in the body. If you miss a dose, contact your doctor for instructions. Tell your doctor and pharmacist about all your medicines. Include prescription and qavx-zxm-hyknnjshbbeoacqw, vitamins, and herbal medicines. Tell your doctor if symptoms do not get better or if they get worse. Keep using this medicine for the full number of days that it is prescribed. Do not stop the medicine even if you start to feel better. Keep all appointments for medical exams and tests while on this medicine. Cautions Tell your doctor and pharmacist if you ever had an allergic reaction to a medicine. Some patients taking this medicine have experienced serious side effects. Please speak with your doctor to understand the risks and benefits associated with this medicine. Do not use the medication any more than instructed. Watch for excessive bruising or bleeding. Contact your doctor if you notice any. Please tell your doctor if you have moderate to severe diarrhea while on this medicine. Do not treat the diarrhea with fmxk-ctm-ehapikl diarrhea medicine. Tell the doctor or pharmacist if you are , planning to be , or . Please tell all your doctors and dentists that you are on this medicine before they provide care. Do not start or stop any other medicines without first speaking to your doctor or pharmacist. Ask your pharmacist how to properly throw away used needles or syringes. Do not share this medicine with anyone who has not been prescribed this medicine. Side Effects The following is a list of some common side effects from this medicine. Please speak with your doctor about what you should do if you experience these or other side effects. decreased appetite diarrhea headaches pain, redness, swelling near injection nausea and vomiting stomach upset or abdominal pain yeast infection of mouth vaginal itching or yeast infection Call your doctor or get medical help right away if you notice any of these more serious side effects: bleeding or bruising confusion severe, watery or bloody diarrhea fast or irregular heart beats signs of liver damage (such as yellowing of eye or skin, dark urine, or unusual tiredness) seizures shortness of breath dark urine A few people may have an allergic reaction to this medicine. Symptoms can include difficulty breathing, skin rash, itching, swelling, or severe dizziness. If you notice any of these symptoms, seek medical help quickly. Extra Please speak with your doctor, nurse, or pharmacist if you have any questions about this medicine. [email or web address] IMPORTANT NOTE: This document tells you briefly how to take your medicine, but it does not tell youall there is to know about it. Your doctor or pharmacist may give you other documents about your medicine. Please talk to them if you have any questions. Always follow their advice. There is a more complete description of this medicine available in [place]. Scan this code on your smartphone or tablet or use the web address below. You can also ask your pharmacist for a printout. If you have any questions, please ask your pharmacist. The display and use of this drug information is subject to Terms of Use. Copyright(c) 2022 drumbi. [employer]. All rights reserved. This information is not intended as a substitute for professional medical care. Always follow your healthcare professional's instructions. * Pt Handout (on AVS) - Brisa Dennison RN - 06/13/2023 1:22 PM EDT Images from the original note were not included. [id number] Bisacodyl Delayed Release Oral Tablet Brands: Dulcolax Uses For bowel movement. Instructions Swallow the medicine without crushing or chewing it. Take the medicine with 250 mL (1 cup) of water. Keep the medicine at room temperature. Avoid heat and direct light. Frequent or joint terminal attack controller use of laxatives can cause your bowels to depend on them. Do not use laxatives for more than one week unless directed by your doctor. To reduce constipation, eat high fiber foods, drink plenty of water and exercise. Do not take this medicine with antacids. If you forget to take a dose on time, take it as soon as you remember. If it is almost time for thenext dose, do not take the missed dose. Return to your normal schedule. Do not take 2 doses at one time. Tell your doctor and pharmacist about all your medicines. Include prescription and zele-zlm-eumdobvzabukicco, vitamins, and herbal medicines. Tell your doctor if symptoms do not get better or if they get worse. Cautions Tell your doctor and pharmacist if you ever had an allergic reaction to a medicine. Do not use the medication any more than instructed. It is unknown if this medicine passes into breast milk. Ask your doctor before . During , this medicine should be used only when clearly needed. Talk to your doctor about the risks and benefits. Side Effects The following is a list of some common side effects from this medicine. Please speak with your doctor about what you should do if you experience these or other side effects. abdominal cramps diarrhea nausea stomach upset or abdominal pain Call your doctor or get medical help right away if you notice any of these more serious side effects: dizziness dry mouth fainting A few people may have an allergic reaction to this medicine. Symptoms can include difficulty breathing, skin rash, itching, swelling, or severe dizziness. If you notice any of these symptoms, seek medical help quickly. Extra Please speak with your doctor, nurse, or pharmacist if you have any questions about this medicine. [email or web address] IMPORTANT NOTE: This document tells you briefly how to take your medicine, but it does not tell youall there is to know about it. Your doctor or pharmacist may give you other documents about your medicine. Please talk to them if you have any questions. Always follow their advice. There is a more complete description of this medicine available in [place]. Scan this code on your smartphone or tablet or use the web address below. You can also ask your pharmacist for a printout. If you have any questions, please ask your pharmacist. The display and use of this drug information is subject to Terms of Use. Copyright(c) 2022 drumbi. [employer]. All rights reserved. This information is not intended as a substitute for professional medical care. Always follow your healthcare professional's instructions. * Pt Handout (on AVS) - Brisa Dennison RN - 06/13/2023 1:22 PM EDT Images from the original note were not included. [id number] Bisacodyl Rectal Suppository Brands: Bisac-Evac, Dulcolax, The Magic Bullet Uses For bowel movement. Instructions This medicine is for use in the rectum. DO NOT take this medicine by mouth. Wash your hands before and after using this medicine. However, do not get up right away to wash your hands if you are supposed to lie down for a period of time to give the medicine time to work. Lie on your left side, with your right knee bent toward your chest. Or, you may kneel on both knees, with your arms folded on the floor with your head resting on your arms. Unwrap the suppository and moisten it with a few drops of cool water. Insert the pointed end into the anus, and push it all the way in with your finger. If the suppository becomes soft, you can make it firmer by refrigerating it. You can run it under cold water if the suppository is wrapped. Try to keep the suppository inside you for at least 15 minutes. A bowel movement will usually occurwithin an hour. Keep the medicine at room temperature. Avoid heat and direct light. Frequent or joint terminal attack controller use of laxatives can cause your bowels to depend on them. Do not use laxatives for more than one week unless directed by your doctor. To reduce constipation, eat high fiber foods, drink plenty of water and exercise. Tell your doctor and pharmacist about all your medicines. Include prescription and hxza-zya-inartunsxqqnplrz, vitamins, and herbal medicines. If you forget to take a dose on time, take it as soon as you remember. If it is almost time for thenext dose, do not take the missed dose. Return to your normal schedule. Do not take 2 doses at one time. Tell your doctor if symptoms do not get better or if they get worse. Cautions Tell your doctor and pharmacist if you ever had an allergic reaction to a medicine. Do not use the medication any more than instructed. It is unknown if this medicine passes into breast milk. Ask your doctor before . During , this medicine should be used only when clearly needed. Talk to your doctor about the risks and benefits. Side Effects The following is a list of some common side effects from this medicine. Please speak with your doctor about what you should do if you experience these or other side effects. abdominal cramps diarrhea nausea rectal burning or irritation stomach upset or abdominal pain Call your doctor or get medical help right away if you notice any of these more serious side effects: bleeding from rectum severe, watery or bloody diarrhea dizziness dry mouth fainting fast or irregular heart beats urinating less often A few people may have an allergic reaction to this medicine. Symptoms can include difficulty breathing, skin rash, itching, swelling, or severe dizziness. If you notice any of these symptoms, seek medical help quickly. Extra Please speak with your doctor, nurse, or pharmacist if you have any questions about this medicine. [email or web address] IMPORTANT NOTE: This document tells you briefly how to take your medicine, but it does not tell youall there is to know about it. Your doctor or pharmacist may give you other documents about your medicine. Please talk to them if you have any questions. Always follow their advice. There is a more complete description of this medicine available in [place]. Scan this code on your smartphone or tablet or use the web address below. You can also ask your pharmacist for a printout. If you have any questions, please ask your pharmacist. The display and use of this drug information is subject to Terms of Use. Copyright(c) 2022 drumbi. 4770-1979 [employer]. All rights reserved. This information is not intended as a substitute for professional medical care. Always follow your healthcare professional's instructions. * Pt Handout (on AVS) - Brisa Dennison RN - 06/13/2023 1:22 PM EDT Images from the original note were not included. [id number] Amitriptyline Oral Tablet Brands: Damien Uses This medicine is used for the following purposes: anxiety depression eating disorders prevent migraine headaches pain post-traumatic stress disorder drowsiness due to sleep disorder Instructions Take the medicine with 250 mL (1 cup) of water. To relieve dry mouth, chew gum, suck on hard candy/ice chips, drink extra water, or use a saliva substitute. This medicine will work best if you take it at about the same time every day. Store at room temperature away from heat, light, and moisture. Do not keep in the bathroom. To reduce constipation, eat high fiber foods, drink plenty of water and exercise. This medicine can make you sensitive to the sun. Use sunscreen or protective clothing when in sun. It may take several weeks for this medicine to fully work. It is important that you keep taking each dose of this medicine on time even if you are feeling well. If you forget to take a dose on time, take it as soon as you remember. If it is almost time for thenext dose, do not take the missed dose. Return to your normal schedule. Do not take 2 doses at one time. Tell your doctor and pharmacist about all your medicines. Include prescription and objg-itx-xfxqnwtktarzccvw, vitamins, and herbal medicines. Tell your doctor if symptoms do not get better or if they get worse. Do not suddenly stop taking this medicine. Check with your doctor before stopping. This medicine may affect your blood sugar levels. If you have diabetes, talk to your doctor before changing the dose of your diabetes medicine. Cautions Tell your doctor and pharmacist if you ever had an allergic reaction to a medicine. This medicine is associated with an increased risk of serious heart problems, heart attack, and stroke. Please speak with your doctor about the risks and benefits of using this medicine. Contact yourdoctor immediately if you experience chest pain or difficulty breathing. Do not use the medication any more than instructed. If possible, avoid using with alcohol, marijuana, or other medicines that can cause dizziness or drowsiness. These include allergy/cold products, muscle relaxers, sleep aids, and pain relievers. Your ability to stay alert or to react quickly may be impaired by this medicine. Do not drive or operate machinery until you know how this medicine will affect you. Family should check on the patient often. Call the doctor if patient becomes more depressed, has thoughts of suicide, or shows changes in behavior. Call the doctor if there are any signs of confusion or unusual changes in behavior. Tell the doctor or pharmacist if you are , planning to be , or . Do not start or stop any other medicines without first speaking to your doctor or pharmacist. Call your doctor right away if you notice slow or shallow breathing. If you have had a heart attack within the past 6 months, talk to your doctor before using this medicine. Do not share this medicine with anyone who has not been prescribed this medicine. Side Effects The following is a list of some common side effects from this medicine. Please speak with your doctor about what you should do if you experience these or other side effects. agitated feeling or trouble sleeping constipation dizziness or drowsiness lack of energy and tiredness headaches irritability problems with sexual functions or desire stomach upset or abdominal pain sweating unusual or unexplained tiredness or weakness difficulty or discomfort urinating blurring or changes of vision weight gain If you have any of the following side effects, you may be getting too much medicine. Please contactyour doctor to let them know about these side effects. difficulty concentrating confusion high fever hallucinations (unusual thoughts, seeing or hearing things that are not real) muscle pain or weakness shakiness cold, moist skin slurred speech stiffness of the arms or legs unsteadiness while walking vomiting Call your doctor or get medical help right away if you notice any of these more serious side effects: decreased awareness or responsiveness shallow, irregular breathing fast or irregular heart beats uncontrollable movement of face, tongue, arms or legs muscle aches, spasms or abnormal movements muscle trembling dilation of the pupils seizures A few people may have an allergic reaction to this medicine. Symptoms can include difficulty breathing, skin rash, itching, swelling, or severe dizziness. If you notice any of these symptoms, seek medical help quickly. Extra Please speak with your doctor, nurse, or pharmacist if you have any questions about this medicine. [email or web address] IMPORTANT NOTE: This document tells you briefly how to take your medicine, but it does not tell youall there is to know about it. Your doctor or pharmacist may give you other documents about your medicine. Please talk to them if you have any questions. Always follow their advice. There is a more complete description of this medicine available in [place]. Scan this code on your smartphone or tablet or use the web address below. You can also ask your pharmacist for a printout. If you have any questions, please ask your pharmacist. The display and use of this drug information is subject to Terms of Use. Copyright(c) 2022 drumbi. [employer]. All rights reserved. This information is not intended as a substitute for professional medical care. Always follow your healthcare professional's instructions. * Pt Handout (on AVS) - Brisa Dennison RN - 06/13/2023 1:22 PM EDT Images from the original note were not included. [id number] Albuterol Metered Dose Inhaler Brands: ProAir, Proventil, Ventolin Uses This medicine is used for the following purposes: prevent asthma attacks asthma chronic lung disease Instructions Use the medicine as needed if you experience wheezing or difficulty breathing. Keep the medicine at room temperature. Avoid heat and direct light. Ask your doctor, nurse or pharmacist to show you how to use this medicine correctly. If the medicine comes in a pouch, keep it in the pouch until you are ready to use it. Each time you receive a new inhaler, you need to get it ready to use. Shake the inhaler for 5 seconds, point it away from you and then spray into the air. Repeat this 3 more times. This process is called priming the pump and removes any air from the medicine canister. Shake the inhaler well for 5 seconds before each use. If you are using more than one puff or more than one inhaled medicine, wait at least 1 minute between puffs. Keep track of how many times you use the inhaler. Do not use it more than the total number of dosesshown on the package. Drug interactions can change how medicines work or increase risk for side effects. Tell your healthcare providers about all medicines taken. Include prescription and ifye-rff-piokinf medicines, vitamins, and herbal medicines. Speak with your doctor or pharmacist before starting or stopping any medicine. Do not share this medicine with anyone who has not been prescribed this medicine. Keep all appointments for medical exams and tests while on this medicine. Cautions Tell your doctor and pharmacist if you ever had an allergic reaction to a medicine. Do not use the medication any more than instructed. Your ability to stay alert or to react quickly may be impaired by this medicine. Do not drive or operate machinery until you know how this medicine will affect you. Please check with your doctor before drinking alcohol while on this medicine. During , this medicine should be used only when clearly needed. Talk to your doctor about the risks and benefits. It is unknown if this medicine passes into breast milk. Ask your doctor before . If this medicine causes more wheezing or makes it harder to breathe, stop the medicine. Get medicalhelp right away. Always carry an ID card or wear a medical alert bracelet indicating your medical condition. Tell your doctor if symptoms do not get better or if they get worse. If you have any trouble using the medicine, please tell your doctor, nurse or pharmacist. Side Effects The following is a list of some common side effects from this medicine. Please speak with your doctor about what you should do if you experience these or other side effects. agitated feeling or trouble sleeping coughing dizziness dry mouth headaches hoarseness or throat irritation high blood pressure nausea nervousness shakiness changes in taste or unpleasant taste Call your doctor or get medical help right away if you notice any of these more serious side effects: rarely, a severe episode of asthma may occur chest pain confusion fast or irregular heart beats rapid breathing worsening breathing symptoms A few people may have an allergic reaction to this medicine. Symptoms can include difficulty breathing, skin rash, itching, swelling, or severe dizziness. If you notice any of these symptoms, seek medical help quickly. Extra Please speak with your doctor, nurse, or pharmacist if you have any questions about this medicine. [email or web address] IMPORTANT NOTE: This document tells you briefly how to take your medicine, but it does not tell youall there is to know about it. Your doctor or pharmacist may give you other documents about your medicine. Please talk to them if you have any questions. Always follow their advice. There is a more complete description of this medicine available in [place]. Scan this code on your smartphone or tablet or use the web address below. You can also ask your pharmacist for a printout. If you have any questions, please ask your pharmacist. The display and use of this drug information is subject to Terms of Use. Copyright(c) 2022 drumbi. [id number] [employer]. All rights reserved. This information is not intended as a substitute for professional medical care. Always follow your healthcare professional's instructions. * Pt Handout (on AVS) - Brisa Dennison RN - 06/13/2023 1:22 PM EDT [id number] Heart Failure: After Your Hospital Stay Being in the hospital for heart failure can be a hard and scary experience. Once you?re back at home, you may worry about your health. Here?s how you can stay healthy and prevent the problems that can lead to a stay in the hospital. Eat healthy foods You?ll need to consume less salt and sodium. These tips can help: Try to eat fewer fast foods and packaged foods, such as canned soups, frozen meals, and snack foods. These are high in sodium. Don't eat anything brined, such as pickles or olives. Stay away from canned vegetables. These are often high in sodium, even if they don't taste salty. Frozen vegetables are generally preferred, so long as no salt was added. Don't add salt to your food. A good rule is that if a condiment, such as soy sauce, tastes salty, it probably has too much sodium. Don't use it. Always read food labels to see how much sodium is in the product. Don't eat foods high in saturated fat. Ask your healthcare provider whether it?s safe for you to drink alcohol. Limit the number of meals you eat out. These can be very high in sodium. When you do eat out, ask that your dishes be made without added salt. Manage medicines Know what each of your medicines is for, when to take it, and how much to take. Find out whether you should keep taking all the medicines you were taking before you were admitted to the hospital. If a medicine type or dose has changed, taking previously prescribed medicines may cause problems. It?sa good idea for a family member to know this information, too. To help you remember when to take your medicines, use a timer that rings or vibrates, or get a divided pillbox. Or set your smartphone alarm. Bring a current list of all your medicines, including doses and when you take them, to each healthcare provider's visit. If you don't have a list, bring all your pill bottles. Also, let your healthcare provider know about all onfn-pze-rxcmcjz medicines, herbal medicines, and dietary supplements you take. Don't miss any doses of medicines. If you keep skipping or missing medicines, you can end up back in the hospital. Weigh yourself One of the best ways to tell if your treatment is working is to use your bathroom scale. Sudden weight gain may be a sign that your heart is having trouble. A change in medicine may be all you need to get you back on track. Weigh yourself every day, or as often as your healthcare provider tells youto. Call your healthcare provider if you gain more than 2 pounds in a day, 5 pounds in a week, or another amount that your healthcare provider has asked you to report. Check blood pressure By checking your blood pressure at home, you can catch problems early. Your healthcare provider or pharmacist can help you choose a home monitor and show you how to use it. Ask your healthcare provider what your blood pressure numbers should be and when to call them if your numbers are high. Balance activity and rest Make time in your day for naps and putting your feet up. You may need to start small with exercise,such as walking to the mailbox and back. Work with your healthcare provider to make a plan for safeexercise. Last Reviewed Date: 2023 Licensed PDQ from the [employer] ([employer]). * Pt Handout (on AVS) - Brisa Dennison RN - 06/13/2023 1:22 PM EDT Images from the original note were not included. [id number] Heart Failure: Making Changes to Your Diet You have a condition called heart failure. When you have heart failure, excess fluid is more likelyto build up in your body because your heart isn't working well. This makes the heart work harder topump blood. Fluid buildup causes symptoms such as shortness of breath and swelling (edema). This isoften called congestive heart failure or CHF. Controlling the amount of salt (sodium) you eat may help stop fluid from building up. Your healthcare provider may also tell you to reduce the amount of fluid you drink. Reading food labels Your healthcare provider will tell you how much sodium you can eat each day. Read food labels to keep track. Keep in mind that certain foods are high in salt. These include canned, frozen, and processed foods. Check the amount of sodium in each serving. Watch out for high-sodium ingredients. These include MSG (monosodium glutamate), baking soda, and sodium phosphate. Eating less salt Give yourself time to get used to eating less salt. It may take a little while. Here are some tips to help: Take the saltshaker off the table. Replace it with salt-free herb mixes and spices. Eat fresh or plain frozen vegetables. These have much less salt than canned vegetables. Choose low-sodium snacks such as sodium-free pretzels, crackers, or air- popped popcorn. Don?t add salt to your food when you?re cooking. Instead, season your foods with pepper, lemon, garlic, or onion. When you eat out, ask that your food be cooked without added salt. Don't eat fried foods as these often have a great deal of salt. Talk with your healthcare provider before using salt substitutes. They often contain potassium and may not be good for your health. This will depend on how well your kidneys are working and what medicines you?re taking. Some people need extra potassium, but others don?t. If you?re told to limit fluids In some cases, you may need to limit how much fluid you consume to help prevent swelling. This includes anything that is liquid at room temperature, such as ice cream and soup. If your healthcare provider tells you to limit fluid, try these tips: Measure drinks in a measuring cup before you drink them. This will help you meet daily goals. Chill drinks to make them more refreshing. Suck on frozen lemon wedges to quench thirst. Only drink when you?re thirsty. Chew sugarless gum or suck on sugarless hard candy to keep your mouth moist. Weigh yourself daily to know if your body's fluid content is rising. My sodium goal Your healthcare provider may give you a sodium goal to meet each day. This includes sodium found infood as well as salt that you add. My goal is to eat no more than mg of sodium per day. When to call your healthcare provider Call your provider right away if you have any symptoms of worsening heart failure. These can include: Sudden weight gain Increased swelling of your legs or ankles Mild trouble breathing when you?re resting or at night Increase in the number of pillows you have to sleep on or feeling the need to sleep upright in achair Dry hacking cough No energy or feeling more tired Call 911 Call 911 if any of these occur: Chest pain Pressure, discomfort, or pain in the jaw, neck, or back A lot of trouble breathing, either at rest or with activity Abnormally fast pulse or pounding heartbeat Fainting or severe dizziness Confusion or can't think clearly Last Reviewed Date: 12/10/202019996447-4210 [employer]. All rights reserved. This information is not intended as a substitute for professional medical care. Always follow your healthcare professional's instructions. * Pt Handout (on AVS) - Brisa Dennison RN - 06/13/2023 1:22 PM EDT Images from the original note were not included. [id number] Heart Failure: Warning Signs of a Flare-Up You have heart failure. Once you have heart failure, flare-ups can happen. Below are signs that canmean your heart failure is getting worse. If you notice any of these warning signs, call your healthcare provider. Swelling Your feet, ankles, or lower legs get puffier. You notice skin changes on your lower legs. Your shoes feel too tight. Your clothes are tighter in the waist. You have trouble getting rings on or off your fingers. Shortness of breath You have to breathe harder even with normal activity or at rest. You're short of breath walking up stairs or even short distances. You wake up at night short of breath or coughing. You need to use more pillows or sit up to sleep. You wake up tired or restless. Other warning signs You feel weaker, dizzy, or more tired. You have chest pain or changes in your heartbeat. You have a cough that won?t go away. You can?t remember things or don?t feel like eating. You have trouble sleeping. Tracking your weight Gaining weight is often the first warning sign that heart failure is getting worse. Gaining even a few pounds can be a sign that your body is retaining excess water and salt. Weighing yourself each day in the morning after you pee and before you eat, is the best way to know if you're retaining water. Get a scale that's easy to read. Make sure you wear the same clothes and use the same scale everytime you weigh yourself. Your healthcare provider will show you how to track your weight. Call yourprovider if you gain: More than 2 pounds in 1 day More than 5 pounds in 1 week Or whatever weight gain you were told to report by your provider This has to be evaluated and treated before it affects your breathing. Your provider will tell you what to do next. Last Reviewed Date: 12/10/202019998573-2199 [employer]. All rights reserved. This information is not intended as a substitute for professional medical care. Always follow your healthcare professional's instructions. * Pt Handout (on AVS) - Brisa Dennison RN - 06/13/2023 1:22 PM EDT [id number] Heart Failure What is heart failure? The heart is a muscle that pumps oxygen-rich blood to all parts of the body. When you have heart failure, the heart can?t pump as well as it should. Or the heart muscle can?t relax and fill the pumping chamber with blood. Blood and fluid may back up into the lungs. This causes heart failure. And itcauses pulmonary edema. Some parts of the body also don?t get enough oxygen-rich blood. This means they can't work well. These problems lead to the symptoms of heart failure. What causes heart failure? Heart failure may result from: Heart valve disease High blood pressure Active infections of the heart valves or heart muscle, such as endocarditis A past heart attack Coronary artery disease Disease of the heart muscle (cardiomyopathy) Heart problems that are present at (congenital heart defects) Heart rhythm problems (arrhythmias) Long-term (chronic) lung disease and pulmonary embolism A reaction to medicines, such as those used for chemotherapy Anemia and too much blood loss Thyroid disorders Diabetes Alcohol and drug abuse Certain viral infections What are the symptoms of heart failure? The most common symptoms of heart failure are: Shortness of breath while resting, exercising, or lying flat Weight gain from water retention Visible swelling of the legs, ankles, and feet from fluid buildup. Sometimes the belly (abdomen)may swell. Severe tiredness (fatigue) and weakness Loss of appetite, nausea, and belly pain Cough that doesn?t go away. It can cause blood-tinged or frothy sputum. The severity of the condition and symptoms depends on how much of the heart's pumping ability has been affected. The first step in managing heart failure symptoms is knowing your baselines or what?s normal for you. How much do you weigh? Are you gaining weight but eating the same amount? How much can you do before you feel short of breath? Do your socks and shoes fit comfortably? Knowing what?s normal for you will help you see when symptoms are getting worse. Once you know your baselines, watchfor changes daily. The symptoms of heart failure may look like other health problems. Always see your healthcare provider for a diagnosis. How is heart failure diagnosed? Your healthcare provider will ask about your health history. They will give you a physical exam. You may need tests, such as: Chest X-ray. This test makes images of internal tissues, bones, and organs on film. This test shows the size and shape of your heart. Fluid in the lungs will also show up on X-ray. Echocardiogram. This test is also called an echo. It uses sound waves to assess the motion of the heart?s chambers and valves. The sound waves make an image on the screen as an ultrasound transducer is passed over the heart. This shows how well the heart pumps and relaxes. It also shows the thickness of the heart pryor, and if the heart is enlarged. It can assess heart valve function and bloodflow as well. It is one of the most useful tests because it shows a lot of information about the heart?s function. And it can help guide treatment choices. Electrocardiogram. This test records the electrical activity of the heart. It shows abnormal rhythms. It can sometimes find heart muscle damage. BNP testing. B-type natriuretic peptide (BNP) is a hormone released from the ventricles that occurs with heart failure. BNP levels are useful in the quick assessment of heart failure. The higher the BNP levels, the worse the heart failure. BNP is measured from a blood sample. Cardiac MRI. This test uses a magnetic field to make images of the heart and its nearby tissues.It can assess how the heart muscle and valves are working. How is heart failure treated? The cause of heart failure will guide the treatment plan. If heart failure is caused by a valve problem or coronary heart disease, then you may need a procedure. This may be a percutaneous coronary intervention. Or it may be surgery. If heart failure is caused by a problem, such as anemia or an infe ction, you may need medicine to treat this problem. Some causes of heart failure are reversible or short-term, such as an acute infection. For many causes of heart failure there is no cure. But many forms of treatment can help with symptoms. They are listed below. Lifestyle changes These healthy habits may help with heart failure: Controlling blood pressure Controlling blood sugar if you have diabetes Quitting smoking Maintaining a healthy weight. Losing weight, if needed Regular exercise Limiting salt and fat in your diet Not drinking alcohol or using illicit drugs Getting enough rest Reducing stress Other important lifestyle habits include getting vaccines, such as for the flu and pneumococcal pneumonia. If you have sleep problems, getting a sleep study can help find out what?s causing them. You may need to wear a C-PAP mask while you sleep. This will make sure you get enough oxygen. Too little oxygen can put stress on your heart. Medicines Many types of medicines are available for heart failure. They include: Angiotensin converting enzyme (ALFONSO) inhibitors. These lower the pressure inside the blood vessels. This reduces the pressure that the heart has to pump against. They can also help the heart have better pumping ability over time. Angiotensin receptor blockers (ARB). Some people get a cough and need to stop taking ALFONSO inhibitors. If that happens, an ARB may work for you. These help relax blood vessels and reduce stress on the heart. Angiotensin receptor-neprilysin inhibitors (ARNIs). This medicine combines an ARB and a neprilysin inhibitor. This can help the heart as noted above. And it can promote salt and water loss. This medicine is preferred over ALFONSO inhibitors and ARBs alone. Diuretics. These reduce the amount of fluid in the body. They are among the most important medicines in helping control fluid buildup in the body. Beta-blockers. These reduce the heart?s tendency to beat faster. They can also help the heart pump better over time. Aldosterone blockers. These block the effects of the hormone aldosterone. This hormone causes sodium and water retention. Vasodilators. These include hydralazine and nitroglycerin. These widen (dilate) the blood vessels. They reduce the workload on the heart. Statins or PCSK9 inhibitors. These lower the amount of bad cholesterol in your blood. They are not used to treat heart failure. But you may take one if you have high cholesterol. Or you may take one if you have had a past heart attack and are at risk for heart failure. People who have inherited forms of high cholesterol (familial hypercholesterolemia) may get help from PCSK9 inhibitors. These medicines lower cholesterol. Sodium-glucose cotransporter-2 (SGLT2) inhibitors. They block your kidneys from reabsorbing sugar from the blood. This helps your body get rid of extra salt and water and so lowers your blood pressure. Lowering your blood pressure eases the strain on your heart. Digitalis. This medicine helps the heart beat stronger. It may help with controlling heart rate if there is an abnormal heart rhythm. Antiarrhythmics. These help keep normal heart rhythm. Sinus node I-f channel duncan. This may be used to lower your heart rate. It may result in lessstress on your heart. This medicine is reserved for people who still have high resting heart rates despite use of beta blockers. Heart procedures These include opening blocked arteries in the heart. This brings back blood flow to the heart muscle. It helps the ventricles squeeze as they should. The procedure can be done in the cardiac catheterization lab. It uses balloons to push plaque and blood clots out of the artery. It also uses stents to keep the artery open. This can also be done by bypassing blockages during surgery (coronary artery bypass surgery). Heart valve repair or replacement In some cases, medicines can?t help heart failure caused by heart valves that are narrowed (stenosed) or leak (regurgitant). The heart valve can be repaired or replaced. This can be done as an open-heart procedure. Or it can be done by going through a small tube (catheter) that is put into an artery or vein. Pacemaker If your heart failure has also damaged your heart?s electrical wiring system, a pacemaker can be implanted. This is done to restore normal heart rate and regularity. A cardiac resynchronizing pacemaker is used when one of the natural heart wires is damaged. This is often the wire located in the left ventricle. These pacemakers use implanted left and right sided wires to restore normal timing of the heart contraction in order to improve heart function. ICD (implantable cardioverter defibrillator) When the heart muscle is damaged, dangerous heart circuits can form in the heart muscle. This leadsto heart rhythms that can cause . An ICD is implanted in the body to sense and treat these cardiac arrest rhythms. It does this by overdrive pacing the heart rhythm. Or it sends an energy shock to the heart. VAD (ventricular assist device) This device is put in the chest during a surgery. It connects to an outside motor. The motor helps pump blood from the heart to the rest of the body. VADs can allow people with advanced heart failureto improve their overall symptoms and to walk more. This can be used as a long-term treatment. Or it can be used while someone waits for a donor heart for a transplant. Heart transplant In some cases, the diseased heart must be replaced with a healthy one from a donor. Talk with your healthcare providers about the risks, benefits, and possible side effects of all treatments. What are possible complications of heart failure? Complications of heart failure include: Fluid buildup in the lungs (pulmonary edema) Kidney and liver failure Stroke Abnormal heart rhythms How daily issues affect your health Many things in your daily life impact your health. This can include transportation, money problems,housing, access to food, and children's author. If you can?t get to medical appointments, you may not receive the care you need. When money is tight, it may be difficult to pay for medicines. And living farfrom a grocery store can make it hard to buy healthy food. If you have concerns in any of these or other areas, talk with your healthcare team. They may know of local resources to assist you. Or they may have a staff person who can help. Parson points about heart failure When you have heart failure, the heart can?t pump as well as it should. Heart failure may result from health problems that affect the heart, such as high blood pressure, coronary artery disease, and heart attack. Some common symptoms are shortness of breath, weight gain, and visible swelling of the legs and ankles. A chest X-ray can help diagnose lung congestion. Treatment varies based on the cause of heart failure. Most people are advised to make certain lifestyle changes and to take certain medicines, often for life. Procedures, such as coronary intervention and surgery, may be needed. Next steps Tips to help you get the most from a visit to your healthcare provider: Know the reason for your visit and what you want to happen. Before your visit, write down questions you want answered. Bring someone with you to help you ask questions and remember what your provider tells you. At the visit, write down the name of a new diagnosis, and any new medicines, treatments, or tests. Also write down any new instructions your provider gives you. Know why a new medicine or treatment is prescribed, and how it will help you. Also know what theside effects are. Ask if your condition can be treated in other ways. Know why a test or procedure is recommended and what the results could mean. Know what to expect if you do not take the medicine or have the test or procedure. If you have a follow-up appointment, write down the date, time, and purpose for that visit. Know how you can contact your healthcare provider if you have questions, especially after officehours or on weekends. Last Reviewed Date: 09/09/202219994974-6850 [employer]. All rights reserved. This information is not intended as a substitute for professional medical care. Always follow your healthcare professional's instructions. * Pt Handout (on AVS) - Brisa Dennison RN - 06/13/2023 1:22 PM EDT Images from the original note were not included. [id number] Heart Failure: Tracking Your Weight You have a condition called heart failure. When you have heart failure, a sudden weight gain or a steady rise in weight is a warning sign. It means that your body is retaining too much water and salt. This could mean your heart failure is getting worse. If left untreated, it can cause problems for your lungs and result in shortness of breath. Weighing yourself each day is the best way to know if you?re retaining water. If your weight goes up quickly, call your healthcare provider. You'll be given instructions on how to get rid of the excess water. You'll likely need medicines and have to avoid salt. This will help your heart work better. When to call your healthcare provider Call your healthcare provider if you gain: More than 2 pounds in 1 day More than 5 pounds in 1 week Or whatever weight gain you were told to report by your provider This is often a sign of worsening heart failure and needs to be evaluated and treated. Your provider will tell you what to do next. Tips for weighing yourself Weigh yourself at the same time each morning, wearing the same clothes. Ideally, weigh yourself after urinating and before eating. Use the same scale each day. Make sure the numbers are easy to read. Put the scale on a flat, hard surface. Don't put it on a rug or carpet. Don't stop weighing yourself. If you forget 1 day, weigh yourself again the next morning. How to use your weight chart Keep your weight chart near the scale. Write your weight on the chart as soon as you get off thescale. Fill in the month and the start date on the chart. Then write down your weight each day. Your chart will look like this: If you miss a day, leave the space blank. Weigh yourself the next day and write your weight in the next space. Take your weight chart with you when you go to see your provider. Last Reviewed Date: 12/10/202019991629-4661 [employer]. All rights reserved. This information is not intended as a substitute for professional medical care. Always follow your healthcare professional's instructions. * Communication - Randee Boyer RN - 06/13/2023 1:15 PM EDT You have an appointment with Dr. Ricky Carnes MD on Thursday, August 31, 2023 @ 10:20 a.m. Infectious Disease [address] [place] [address] [id number] You have an appointment with the Sleep Medicine Department June 26, 2023 at 10:40 am. Dena Arshad (Sleep Medicine) [phone] [address] [place] [address] * Care Plan - Rita Anguiano RN - 06/13/2023 5:27 AM EDT Clinical Goal(s): Pt will have adequate pain control this shift (06/12/232199) Possible barriers to meeting goal(s)/advancing plan of care: Admitting diagnosis Stability of the patient: Moderately stable - low risk of patient condition declining or worsening Summary regarding today's goal(s): Met: Pt had adequate pain control this shift Recommendations: Continue current plan of care, monitor pain appropriately, administer pain medication as prescribed * Ancillary Progress Note - Tim El PTA - 06/12/2023 4:30 PM EDT PROGRESS NOTE - Physical Therapy [facility] [id number] Name: Alexandria Smith Location: [address]/ Date: 06/12/2023 Time: 1629 Alexandria Smith is a/an 63 year old female. Patient Status: Inpatient Insurance: Payor: [employer]AGE Plan: [employer]VANTAGE HMO Product Type: *No Product type* Patient Seen: at bedside, nursing cleared patient for therapy Patient Identified By: Name, ID Band and Date Diagnosis: weakness due to hypervolemia (06/08/23 1400) Status of treatment: Treatment completed (06/12/23 163) Orders: OOB (06/08/23 1400) Weight Bearing Status: Non-weight bearing (06/12/23 163) Precautions: Safety;Falls (06/12/23 163) Total Treatment Time--free text: 70 mins (06/12/23 163) Subjective: "I walked to the bathroom today" Pain: No complaints of pain P.T. Bed Mobility Roll (Right): Maximal Assistance (06/12/23 1630) Supine-Sit: Moderate Assistance (assist of 2) (06/07/23 1135) Transfers Sit-Stand: N/A (06/12/23 1630) Stand-Sit: N/A (06/12/23 1630) Ambulation: No GT due to R LE NWB Balance Sit (Static): Good (06/08/23 1400) Sit (Dynamic): Fair (06/08/231399) Stand (Static): Fair (06/08/23 1400) Stand (Dynamic): Poor (06/08/231399) Patient and or Family Goal(s): to get well and to return home Topic of Education: Weight bearing restrictions, Safety with mobility, Use of assistive device, andFall prevention Extremity Exercise Sitting: Hip;Knee;Ankle;Isometrics (06/08/23 1400) Hip : Flexion;Bilateral LE;Adduction;Abduction;1 set of 10 (06/08/231399) Knee : Bilateral LE;Flexion;Extension;Heel slide;1 set of 10 (06/08/231399) Ankle: Bilateral LE;Plantar flexion;Dorsiflexion;1 set of 10 (06/08/231399) Isometrics: Glute sets;Quad sets;1 set of 10 (06/08/231399) Method of Education: Demonstrated the above task to pt: verbalized understanding and or agreement of this information and demonstrated the exercise and or task Treatment Provided: Therapeutic Exercises: 70 minutes Alarm Status Patient positioned in: Bed (06/12/231629) With: Call villeda in reach (06/12/231629) Patient Education Review of Precautions: Safety;Fall (06/12/23 163) Review of Exercises: Pt Demonstrated Exercise;Verbal Exercises Provided (06/12/231629) Safety Awareness: Patient verbalizes insight of current deficits;Patient demonstrates carryover of insight during functional tasks;Patient can communicate basic needs (06/12/23 163) Preferred learning method: Combination (06/08/231399) Barriers to learning: Medical Status (06/08/231399) Method of Education: Verbalized to patient (06/08/231399) Assessment: Pt tolerated tx fair with no reported pain, however reported feeling fatigued. Pt againeducated on R LE NWB, and that she should not be ambulating to BR at this time. Pt performed supineexercises in the bed to increase strength and ROM to improve functional mobility. Pt fatigues easily and required many rest breaks t/o exercises. Pt left lying supine in bed with HOB elevated to comfort. No needs post tx session. Pt instructed to not get up without assistance. Deficits requiring P.T. treatment needs: Weakness;Endurance;Safety;Mobility;Lower extremity strength (06/08/23 1400) Plan: Continue with current treatment plan established on evaluation. AM PAC Score with Stairs: 10 * Pt Handout (on AVS) - Jose E Olivas RN - 06/12/2023 12:51 PM EDT Images from the original note were not included. [id number] Peripherally Inserted Central Catheter (PICC) You need a peripherally inserted central catheter (PICC) for your treatment. A catheter is a small,soft tube. The catheter is inserted into a vein in your arm. It is then moved through your vein until the tip sits in the large vein (vena cava) near your heart. A PICC is often used when treatment needs you to have medicine or nutrition for weeks or months. When you no longer need the PICC, your healthcare provider will remove it. Your skin will then heal. This article tells you more about a PICC and how a healthcare provider places it in your body. A PICC may have more than one channel. This means that different fluids or medicines can be given at once. Keep in mind that your PICC should be accessed only by trained medical device assembler. Why do I need a PICC? A PICC takes the place of a standard IV (intravenous) line. A standard IV needs to be changed everyfew days. Since the PICC can stay in place longer, you may have fewer needle sticks during your treatment. There is less damage to the small veins where an IV would normally be inserted. Your healthcare provider can give you more details about why you need the PICC. Getting a PICC A short procedure is done to place the PICC in your body. This will be done in your hospital room, the radiology department, or somewhere else in the hospital. It may vary slightly from the steps described here. Your healthcare team can tell you what to expect. In general, during PICC placement: You?re fully covered with a large sterile sheet (drape). This lowers risk for infection. Only the spot where the PICC will be placed is exposed. The skin here is cleaned with an antiseptic solution. Ultrasound images may be viewed on a video screen. These are used to help find the best vein to use. The area where the PICC will be inserted is numbed with a shot of local anesthetic. This decreases discomfort during the PICC placement. After the local anesthetic takes effect, the catheter is gently passed into the vein. It?s movedalong until the tip is in the vena cava, close to the heart. The other end of the catheter sticks out a few inches from your skin. It may be loosely attachedto the skin with stitches (sutures) or a securement device. A dressing is placed over the area where the catheter enters your skin. The provider will flush the catheter with saline solution to clear it. The solution may include heparin, which prevents blood clots. An X-ray or other imaging test is done. This confirms the catheter?s position and checks for problems. Risks and complications As with any procedure, getting a PICC has certain risks. These include: Infection Bleeding problems An irregular heartbeat Injury to the vein or to lymph ducts near the vein Inflammation of the vein (phlebitis) Clots or air bubbles in the bloodstream Blockage of the blood vessel where the catheter is inserted Clots in the vein that may travel to the lung (pulmonary embolism) Nerve injury Accidental insertion into an artery instead of a vein Catheter not positioned correctly, or the catheter may move or migrate from its correct position Last Reviewed Date: 09/09/202119996348-5599 [employer]. All rights reserved. This information is not intended as a substitute for professional medical care. Always follow your healthcare professional's instructions. * Pt Handout (on AVS) - Jose E Olivas RN - 06/12/2023 12:51 PM EDT Images from the original note were not included. [id number] Discharge Instructions: Caring for Your Peripherally Inserted Central Catheter (PICC) You are going home with a peripherally inserted central catheter (PICC). This small, soft tube has been placed in a vein in your arm. It's often used when treatment needs medicines, fluids, or nutrition for weeks or months. At home, you need to take care of your PICC to keep it working. Because a PICC line has a high infection risk, you must take extra care washing your hands and preventing the spread of germs. This sheet will help you remember what to do to care for your PICC at home. Understanding your role A nurse or other healthcare provider will teach you and your caregivers how to care for the PICC. Before leaving the hospital, make sure you understand what to do at home, how long you may need the PICC, and when to have a follow-up visit. Write down important details about caring for your PICC, including the following: Follow-up visit scheduled: PICC dressing change due date: Healthcare provider in charge of PICC care and their phone number: Who to call with concerns about your PICC line and their phone number: Any other important information: Protecting the PICC If the PICC gets damaged, it won?t work right and could raise your chance of infection. Call your healthcare team right away if any damage occurs. To protect the PICC at home: Prevent infection. Use good hand hygiene by following the guidelines on this sheet. Don?t touch the catheter or dressing unless you need to. And always clean your hands before and after you come in contact with any part of the PICC. Your caregivers, family members, and any visitors should use good hand hygiene, too. Keep the PICC dry. The catheter and dressing must stay dry. Don?t take baths, go swimming, use ahot tub, or do other things that could get the PICC wet. Take a sponge bath to prevent getting yourcatheter wet, unless your healthcare provider tells you otherwise. Ask your provider about the bestway to keep your catheter dry when bathing or showering. If the dressing does get wet, change it only if you have been shown how. Otherwise, call your healthcare team right away for help. Don't damage the catheter. Don?t use any sharp or pointy objects around the catheter. This includes scissors, pins, knives, razors, or anything else that could cut it or put a hole in it (punctureit). Also, don?t let anything pull or rub on the catheter, such as clothing. Watch for signs of problems. Pay attention to how much of the catheter sticks out from your skin. If this changes at all, let your healthcare provider know. Also watch for cracks, leaks, or other damage. If the dressing becomes dirty, loose, or wet, change it (if you have been directed to). Or call your healthcare team right away. Tell your healthcare team if you vomit or have severe coughing. This can also make the catheter slip out of place. Protecting your arm The arm with the PICC is at risk for developing blood clots (thrombosis). This is a serious problem. To help prevent it: As much as possible, use the arm with the PICC in it for normal daily activities. Lack of movement can lead to blood clots. It?s important to move your arm as you normally would. Your healthcare team may suggest light arm exercises. Don't do activities or exercises that need major use of your arm, such as sports, unless your healthcare provider says it?s OK. Don't do any activities that cause mild pain in your arm. Talk to your healthcare team if you have concerns about pain or range of motion. Don?t lift anything heavier than 10 pounds with the affected arm. Drink plenty of water. Staying hydrated helps keep clots from forming. Prevent infection with good hand hygiene A PICC can let germs into your body. This can lead to serious and sometimes deadly infections. To prevent infection, it?s very important that you, your caregivers, and others around you use good handhygiene. This means washing your hands well with soap and water and cleaning them with an alcohol-based hand gel as directed. Never touch the PICC or dressing without first using one of these methods. To wash your hands with soap and water: Wet your hands with clean water. (Don't use hot water, which can cause skin irritation when you wash your hands often.) Apply enough soap to cover the whole surface of your hands, including your fingers. Rub your hands together vigorously (using a lot of energy) for at least 20 seconds. Make sure torub the front and back of each hand up to the wrist, your fingers and fingernails, between the fingers, and each thumb. Rinse your hands with clean water. Dry your hands completely with a new, unused paper towel. Don?t use a cloth towel or other reusable towel. These can harbor germs. Use the paper towel to turn off the faucet, then throw it away. If you?re in a bathroom, also use a paper towel to open the door instead of touching the handle. When you don?t have access to soap and water: Use an alcohol-based hand gel to clean your hands. The gel should have at least 60% alcohol. Let the alcohol fully dry. Follow the directions on the package. Your healthcare team can answer any questions you have about when to use hand gel, or when it?sbetter to wash with soap and water. When to call your healthcare provider Call your healthcare provider right away if any of the following occur: Pain or burning in your shoulder, chest, back, arm, or leg Fever of 100.4 F ( 38C ) or higher, or as directed by your provider Chills Signs of infection at the catheter site (pain, redness, drainage, burning, or stinging) Coughing, wheezing, or shortness of breath A racing or irregular heartbeat Muscle stiffness or trouble moving Tightness in your arm, above the catheter site Gurgling noises coming from the catheter The catheter falls out, breaks, cracks, leaks, or has other damage Last Reviewed Date: 06/10/202119991592-1754 [employer]. All rights reserved. This information is not intended as a substitute for professional medical care. Always follow your healthcare professional's instructions. * Ancillary Progress Note - Samina Mckeon, Stage Set Up Worker - 06/12/2023 12:30 PM EDT TT sent to Abdi with . No auth yet. Per Abdi she checked and they are still reviewing clinicals. Received the following TT from Alexandria Smith #[id number]. Pending [facility] Auth [id number] to Vazquez Edwards has been Approved x 13 days. Start date 06/11, Last covered date 06/23. Next review date 06/24. Nurse reviewer is Jane Bryant, . Fax updates to [phone]. * Care Plan - Ayala Alejandro RN - 06/11/2023 6:25 PM EDT Clinical Goal(s): Pt will remain free of falls this shift (06/11/23 0755) Possible barriers to meeting goal(s)/advancing plan of care: admitting dx Stability of the patient: Moderately stable - low risk of patient condition declining or worsening Summary regarding today's goal(s): Met: Pt had no falls this shift Recommendations: monitor for increased risk of falling, implement fall precautions, and continue plan of care * Ancillary Progress Note - Samina Mckeon, Stage Set Up Worker - 06/11/2023 4:08 PM EDT CARE MANAGEMENT - ADULT TRANSITION NOTE [facility] [address] Name: Alexandria Smith Location: [facility] [id number]-[id number]/W Date: 06/11/2023 Time: 4:08 PM Risk Stratification Risk Stratification Psycho Social / Medical Concerns Identified: None Identified (06/04/23 104) Accessed [employer] to connect patients to social care resources: No (06/04/23 104) OBRA or OPTIONS needed for placement: No (06/04/231045) Readmission Risk Score: 18.23 (06/11/23 1600) AM-PAC Score With Stairs : 12 (06/11/23 0755) Caregiver Information Patient Contacts Name Relation Home Work Mobile ALEISHA DOW Other - (no specific identity) [phone] Jane Pineda Sibling [phone] Thao Hussein Friend [phone] Transition of Care Checklist Narrative: Patient discussed at IDT. Pt will need IV antibiotics at discharge. Pt agreeable to WP. Authorization submitted. Anticipated Transportation at Discharge: EMS Patient/Family Expectations: to get well and return home after Rehab Transition Planning Additional Considerations: Care Management will continue to monitor and assist with discharge planning needs * Inpatient Ask-A-Doc - Ricky Carnes MD - 06/11/2023 2:55 PM EDT ASK-A-DOC Inpatient Note [facility] [address] Name: Alexandria Smith Location: [facility] [id number]-[id number]/W Date: 06/11/2023 Time: 2:55 PM Date of Response: 06/11/2023 MRI Rt ankle on 06/03: 1. Soft tissue wound is seen at the plantar aspect of the heel. Faint bone marrow edema is seen in the subjacent bone involving the plantar and posterior aspect of the calcaneus, which is suspicious for early osteomyelitis. Reactive edema related to acute plantar fasciitis could also appears similar. 2. Acute plantar fasciitis. 3. Diffuse soft tissue edema and swelling, which may represent cellulitis, venous stasis, lymphedema, or dependent edema in appropriate clinical setting. Limited assessment for soft tissue abscess. 4. Low-grade injury of the ATFL, PTFL, and CFL. 5. Small amount of fluid is noted about the flexor and peroneal tendons, which may be physiologic or very mild tenosynovitis. MICROBIOLOGY: 06/05: Deep wound culture growing moderate MSSA 06/05: Right calcaneal bone culture growing MSSA from broth only Assessment: 1) Rt heal osteomyelitis - S/P bone biopsy on 06/05 2) Type 2 diabetes with neuropathy 3) MSSA infection Recommendations: - Please continue on IV cefazolin for 6 weeks from today. Anticipated end date will be July 23, 2023. - As discussed by Podiatry, antibiotic therapy alone might not be enough to clear the infection andshe might eventually require surgical debridement. OBJECTIVE: Most Recent Vital Signs: BP: 136 mmHg/62 mmHg (06/11/23727) Pulse: 63 (06/11/23727) Temp: 36.11 C (06/11/23727) Temp Summary: Temp Min: 36.1 C (97 F) Max: 36.8 C (98.2 F) SpO2: 100 % (06/11/23727) O2 flow rate: 2 L/MIN (06/11/23754) Supplemental O2 Delivery: Nasal Cannula (06/11/23754) Vital Signs Last 24 Hours: Systolic BP: Most Recent Systolic BP Av mmHg Min: 123 mmHg Max: 164 mmHg Temperature: Most Recent Temperature Av.5 C Min: 36.11 C Max: 36.78 C Pulse: Pulse Av.3 Min: 63 Max: 69 Respirations: Resp Av Min: 16 Max: 16 SpO2: SpO2 Av % Min: 94 % Max: 100 % FINAL IMPRESSION AND RECOMMENDATIONS: Syndrome Osteomyelitis Microbiology [...] follow-up date Ricky Carnes Within 8 weeks Time spent: 20 minutes * Ancillary Progress Note - Zoraida Easley RDN - 06/11/2023 2:31 PM EDT CLINICAL NUTRITION ADULT RISK ASSESSMENT [address] [address] Name: Alexandria Smith Location: [facility] 5A-5109/W Date: 06/11/2023 Time: 2:31 PM How patient was identified (select 2): Medical record number and Name Alexandria Smith is a 63 year old female being assessed for clinical nutrition risk related to extended LOS Primary diagnosis: exacerbation of dHF; right heel wound, osteomyelitis - followed by podiatry Other pertinent information: Attempted to reach patient by phone this date, unable to connect, therefore chart review completed. Reported diabetic ulcer to right heel s/p done biopsy 06/05. Anthropometrics Measurements Admission weight (for dietitians): 160.12kg Height: 156.2 cm (5' 1.5") (06/03/23 0200) Weight: (!) 148.8 kg (328 lb) (06/11/23 0646) Body mass index is 60.98 kg/m. Usual Body Weight or EDW for Dialysis Patients: 121.81kg 01/16/23, 155.4kg 03/26/23 per CareEverywhere Diet: 4 Choices (60 gm) Consistent Carbohydrate Heart Healthy, 2 gm Sodium Previously followed diet: Unknown Food Allergies/Intolerances: None reported Oral Nutrition Supplement (ONS): none Pertinent medications/vitamins/minerals/supplements: Lasix, novolog, lantus, levoxyl, prilosec RISK FACTORS: Adult Energy Intake: Unable to obtain at present time Interpretation of Weight Change: Change likely secondary to fluid Skin: Diabetic ulcer right heel NUTRITION RISK CATEGORY: Nutrition Risk Category: Low/Moderate (0-1 factors) Clinical Nutrition Recommendations: Diet: Continue current nutrition plan NUTRITION INTERVENTION/PLAN: Orders: Oral nutrition supplement added Liquacel (1 oz, 100 calories, 16 grams protein, 20 mg phosphorus, 10 mg potassium) BID Risk/Re-risk Assessment completed. Will follow and adjust nutritional plan as medical condition requires. Please contact for change(s)in patient condition requiring earlier intervention. Allie Easley RD, ROCN Clinical Dietitian II [facility] Available via [employer] * Progress Notes - Post-Op Skip - Lynnette Rasmussen DPM - 06/11/2023 12:27 PM EDT PROGRESS NOTE - PODIATRY [address] [address] Name: Alexandria Smith Location: [facility] 5A-5109/W Date: 06/11/2023 Time: 12:28 PM SUBJECTIVE: Alexandria Smith is seen resting comfortably at bedside this morning. Dressing appears to be clean dry and intact. Patient denies any acute overnight events and appears to be in no acute distress. Patient denies pedal pain. Denies F/C/N/V/CP/SOB/calf pain. Afebrile overnight. WBC this morningof 8.86 . OBJECTIVE: VITAL SIGNS: BP: 136 mmHg/62 mmHg (06/11/23727) Pulse: 63 (06/11/23727) Temp: 36.11 C (06/11/23727) Temp Summary: Temp Min: 36.1 C (97 F) Max: 36.8 C (98.2 F) SpO2: 100 % (06/11/23727) O2 flow rate: 2 L/MIN (06/11/23754) Supplemental O2 Delivery: Nasal Cannula (06/11/23754) ROS: A complete review of systems was negative unless otherwise stated in the HPI. VITAL SIGNS LAST 24 HRS: Systolic BP: Most Recent Systolic BP Av mmHg Min: 123 mmHg Max: 164 mmHg Temperature: Most Recent Temperature Av.5 C Min: 36.11 C Max: 36.78 C Pulse: Pulse Av Min: 60 Max: 69 Respirations: Resp Av Min: 16 Max: 16 SpO2: SpO2 Av % Min: 94 % Max: 100 % LOWER EXTREMITY PHYSICAL EXAM: RLE found to have dressing(s) intact and in proper alignment. Dressing(s) were clean, dry, and intact without bloody strikethrough. AROM of R foot digits intact and without pain. Absence of pain on palpation of R proximal calf muscle. LABS/MICRODATA: Labs reviewed as indicated below: BUN, Creatinine, GFR Estimated, Sodium, Potassium, Chloride, Carbon Dioxide, Glucose, Calcium (see below for most recent value): Lab Results Component Value Date/Time BUN 29 (H) 06/11/2023 06:03 AM BUN 10 11/19/2018 09:00 AM CREAT 1.9 (H) 06/11/2023 06:03 AM CREAT 0.9 11/19/2018 09:00 AM GFRESTIMATED >60.0 11/19/2018 09:00 AM NA 138 06/11/2023 06:03 AM NA 136 11/19/2018 09:00 AM POTASSIUM 3.6 06/11/2023 06:03 AM POTASSIUM 4.1 11/19/2018 09:00 AM CL 104 06/11/2023 06:03 AM CL 96 (L) 11/19/2018 09:00 AM CO2 25 06/11/2023 06:03 AM CO2 24 11/19/2018 09:00 AM CA 8.8 06/11/2023 06:03 AM CA 9.8 11/19/2018 09:00 AM COAGS: PT, INR (see below for most recent values): Lab Results Component Value Date/Time INR 1.3 (H) 06/04/2023 05:58 AM BLOOD COUNT: WBC, Hgb, Platelets (see below for most recent value): Lab Results Component Value Date/Time WBC 8.86 06/11/2023 06:03 AM WBC 14.40 (H) 12/03/2018 09:22 AM HGB 8.8 (L) 06/11/2023 06:03 AM HGB 13.2 12/03/2018 09:22 AM PLT 235 06/11/2023 06:03 AM PLT 307 12/03/2018 09:22 AM IMAGING/STUDIES: none IMPRESSION and PLAN: Alexandria Smith is a 63 year old female s/p Bone biopsy, right heel on 06/06/23. Culture results are positive for Staph aureus. Patient will require a PICC line. Spoke with the patient at length that thereis no guarantee of clearance of infection with long tern IV antibiotics and that infection may ultimately be limb threatening. Patient expressed understanding. Nursing to continue changing the patient's dressings. Patient to follow up with Podiatry at [facility] as an outpatient. Pt seen and evaluated with all questions and concerns addressed. Pt case was discussed and seen with Dr. Rasmussen WB status: NWB to RLE Abx: per medicine Labs and imaging reviewed as above. Dressing(s) left intact for today's visit. Podiatry to perform dressing changes as needed. No need for urgent or emergent podiatric surgical intervention at this time. Podiatry to continue to follow patient while in-house. This note was completed using the dictation program Fluency Direct. As such, there may be misspellings, word substitutions, or other variations that should not change the essence of the clinical content of this encounter note. Necessary attempts were made to correct dictation errors. If there is need for further clarification, please direct questions to the author. I saw and evaluated the patient today. I have reviewed the trainee note and agree. * Ancillary Progress Note - Maribel Max COTA - 06/11/2023 11:47 AM EDT PROGRESS NOTE - Occupational Therapy [facility] [address] Name: Alexandria Smith Location: [facility] 5A-5109/W Date: 06/11/2023 Time: 1147 AM Alexandria Smith is a 63 year old female. Patient Status: Inpatient Insurance: Payor: COUNT INCLUDES THE [facility] MEDICARE ADVANTAGE Plan: COUNT INCLUDES THE [facility] MEDICARE ADVANTAGE HMO Product Type: *No Product type* Patient Seen: at bedside, nursing cleared patient for therapy Patient Identified By: Name, ID Band and Date Diagnosis: Weakness, Acute on chronic HF, R heel wound (06/11/231146) Status of treatment: Treatment completed (06/11/231146) Orders: OT evaluation and treatment (06/11/231146) Weight Bearing Status: Non-weight bearing;RLE (06/11/231146) Precautions: Alarms;Falls;Safety;Skin (06/11/231146) Total Treatment Time: 33 (06/11/231146) Subjective: "fingers crossed I don't have to lose more of my leg." Pain: No complaints of pain Observations Consciousness: Alert (06/11/231146) Orientation: Oriented times 4 (06/11/231146) Psychosocial: Patient can communicate basic needs;Patient can converse in a social setting (06/11/231146) Sitting posture: Forward head;Rounded shoulders (06/11/231146) Standing posture: Forward head;Rounded shoulders (06/11/231146) Safety awareness: The Patient verbalizes insight of current deficits.;The Patient demonstrates carryover of insight during functional tasks.;The Patient can communicate basic needs.;Needs cueing supervision. (04/01/24 1147) Other Findings Light touch sensation: RUE;LUE;Intact (06/06/23 1016) Coordination: LUE;RUE;Intact (06/06/23 1016) Current Functional Status: Activities of Daily Living: Self Care Grooming: Supervision (Please comment) (06/11/23 114) Toileting: Dependent (06/11/23 114) Dressing Upper Body: Minimal Assistance (06/11/23 1147) Lower Body: Dependent (06/11/23 114) Bathing Upper Body: Supervision (Please comment) (06/11/23 114) Lower Body: Dependent (06/11/23 114) Functional Ambulation Assistive Device: Rolling walker (06/11/23 114) Distance in feet:: 2 (06/11/23 114) Level of Assistance: Minimal Assistance (X2) (06/11/23 1147) Bed Mobility Supine-Sit: Moderate Assistance (06/11/23 1147) Sit-Supine: Dependent (06/06/23 1016) OT Transfers Sit-Stand: Moderate Assistance (X2) (06/11/23 1147) Stand-Sit: Moderate Assistance (X2) (06/11/23 1147) Toilet: Contact Guard (06/06/23 1016) Balance Sit (Static): Good (06/06/23 1016) Sit (Dynamic): Good (06/06/23 1016) Stand (Static): Fair (06/06/23 1016) Stand (Dynamic): Fair (06/06/23 1016) Patient Education Education Topic: Energy conservation;Other - describe (AE) (06/07/23 1040) Review of Precautions: Safety;Fall;Weight Bearing Status (06/07/23 1040) Teachback Test Complete: Yes (06/07/23 1040) Method of Education: Verbalized to patient;Demonstrated to patient;Written information provided to patient (06/07/23 1040) Education Provided to: Patient (06/07/23 1040) Response to Education: Receptive and agreeable to education (06/07/23 1040) Barriers to learning: Medical status (06/07/23 1040) Preferred learning method: Combination (06/07/23 1040) Alarm Status Patient positioned in: Chair (06/11/23 114) With: Call villeda in reach (06/11/23 114) Treatment Provided: Therapeutic Activity: 33 minutes Deficits requiring O.T. treatment needs: ADL/self- care;Balance;Endurance;Functional mobility;Upper extremity strength;Weakness;Safety (06/06/23 1016) Assessment: Pt was agreeable to participating in treatment. OT AMPAC decreased from 14 to 13. PET TRAINER reported pt just used BSC. Pt required mod A supine to sit at EOB. She was educated on WB status pt verbalized understanding. She required mod A x2 sit <> stand with RW and required min A x2 transferring from EOB to chair. Pt unable to maintain NWB. She reported putting "some" weight through R t oes only. Pt completed bedside basin bath while in chair. She was able to complete grooming with supervision. She required min A to doff and coreen gown. UB bathing was completed with supervision. She was dep for doffing L sock, washing LLE, and donning sock. She declined perianal hygiene. She was left in chair with feet elevated, call villeda in reach, and bedside table to the L. Plan: Continue treatment as directed by the OT consult. Anticipated Frequency (on eval): 1 to 3 times per week (06/11/23 114) Equipment Equipment used in Therapy: Hospital bed;Rolling walker (06/11/231146) AM-PAC Help From Another Person Eating Meals: A little (06/11/231146) Help From Another Person Taking Care of Personal Grooming: A little (06/11/231146) Help From Another Person To Put On/Take Off Upper Body Clothing: A little (06/11/231146) Help From Another Person To Put On/Take Off Lower Body Clothing: Total (06/11/23 114) Help From Another Person Toileting: Total (06/11/231146) Help From Another Person Bathing: A lot (06/11/231146) OT AM-PAC Score: 13 (06/11/231146) OT AM-PAC t-Scale Score: 32.03 (06/11/231146) HLM (Highest Level of Mobility) Goal: Level 4 move to chair/commode (06/11/23 7011) * Care Plan - Thao Starks RN - 06/11/2023 6:18 AM EDT Clinical Goal(s): Pt will remain free from falls or injuries this shift (06/10/23 1943) Possible barriers to meeting goal(s)/advancing plan of care: admitting diagnosis and hospital environment Stability of the patient: Moderately stable - low risk of patient condition declining or worsening Summary regarding today's goal(s): Met: Pt had no falls or injuries this shift Recommendations: continue with plan of care * Care Plan - Sydnee Ruiz RN - 06/10/2023 6:22 PM EDT Clinical Goal(s): Pt will remain free of falls this shift (06/10/23 0800) Possible barriers to meeting goal(s)/advancing plan of care: NWB RLE, hospital environment Stability of the patient: Moderately stable - low risk of patient condition declining or worsening Summary regarding today's goal(s): Met: pt remained free of falls this shift Recommendations: continue to implement fall precautions * Pt Handout (on AVS) - Bridget Cervantes RN - 06/10/2023 11:51 AM EDT Images from the original note were not included. 89381 Heart Failure: Warning Signs of a Flare-Up You have heart failure. Once you have heart failure, flare-ups can happen. Below are signs that canmean your heart failure is getting worse. If you notice any of these warning signs, call your healthcare provider. Swelling Your feet, ankles, or lower legs get puffier. You notice skin changes on your lower legs. Your shoes feel too tight. Your clothes are tighter in the waist. You have trouble getting rings on or off your fingers. Shortness of breath You have to breathe harder even with normal activity or at rest. You're short of breath walking up stairs or even short distances. You wake up at night short of breath or coughing. You need to use more pillows or sit up to sleep. You wake up tired or restless. Other warning signs You feel weaker, dizzy, or more tired. You have chest pain or changes in your heartbeat. You have a cough that won?t go away. You can?t remember things or don?t feel like eating. You have trouble sleeping. Tracking your weight Gaining weight is often the first warning sign that heart failure is getting worse. Gaining even a few pounds can be a sign that your body is retaining excess water and salt. Weighing yourself each day in the morning after you pee and before you eat, is the best way to know if you're retaining water. Get a scale that's easy to read. Make sure you wear the same clothes and use the same scale everytime you weigh yourself. Your healthcare provider will show you how to track your weight. Call yourprovider if you gain: More than 2 pounds in 1 day More than 5 pounds in 1 week Or whatever weight gain you were told to report by your provider This has to be evaluated and treated before it affects your breathing. Your provider will tell you what to do next. Last Reviewed Date: 12/10/202019992536-3270 [employer]. All rights reserved. This information is not intended as a substitute for professional medical care. Always follow your healthcare professional's instructions. * Pt Handout (on AVS) - Bridget Cervantes RN - 06/10/2023 11:51 AM EDT Images from the original note were not included. 95471 Heart Failure: Tracking Your Weight You have a condition called heart failure. When you have heart failure, a sudden weight gain or a steady rise in weight is a warning sign. It means that your body is retaining too much water and salt. This could mean your heart failure is getting worse. If left untreated, it can cause problems for your lungs and result in shortness of breath. Weighing yourself each day is the best way to know if you?re retaining water. If your weight goes up quickly, call your healthcare provider. You'll be given instructions on how to get rid of the excess water. You'll likely need medicines and have to avoid salt. This will help your heart work better. When to call your healthcare provider Call your healthcare provider if you gain: More than 2 pounds in 1 day More than 5 pounds in 1 week Or whatever weight gain you were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 29(H) 6 - 20 mg/dL 06/12/2023 7:16 AM EDT LABORATORY GLH Creatinine 1.9(H) 0.5 - 1.0 mg/dL 06/12/2023 7:16 AM EDT LABORATORY GLH Estimated Glomerular Filtration Rate 30(L) >=60 mL/min 06/12/2023 7:16 AM EDT LABORATORY GLH Comment:eGFR is calculated b ased on the CKD-EPI 2020 equation Sodium 137 135 - 146 mmol/L 06/12/2023 7:16 AM EDT LABORATORY GLH Potassium 3.5 3.5 - 5.1 mmol/L 06/12/2023 7:16 AM EDT LABORATORY GLH Chloride 102 98 - 107 mmol/L 06/12/2023 7:16 AM EDT LABORATORY GLH CO2 24 22 - 32 mmol/L 06/12/2023 7:16 AM EDT LABORATORY GLH Anion Gap 11 7 - 15 mmol/L 06/12/2023 7:16 AM EDT LABORATORY GLH Glucose 180(H) 70 - 120 mg/dL 06/12/2023 7:16 AM EDT LABORATORY GLH Calcium 8.8 8.4 - 10.2 mg/dL 06/12/2023 7:16 AM EDT LABORATORY GLH Blood Venous blood specimen / Unknown Capillary / Unknown 06/12/2023 6:15 AM EDT 06/12/2023 6:54 AM EDT Lynnette Rasmussen [facility] LAB BLOOD ORDMauricio SMITHSABINA Performing Organization Address City/[facility]/ZIP Co de Phone Number LABORATORY GLH [address] [place] [address] * (ABNORMAL) GLUCOSE METER, POINT OF CARE (06/11/2023 9:27 PM EDT) Glucose Meter 178(H) 70 - 120 mg/dL 06/11/2023 9:33 PM EDT [facility] Blood Whole blood specimen / Unknown 06/11/2023 9:27 PM EDT 06/11/2023 9:33 PM EDT Leo Reich MD LAB POINT OF CARE T EST DOCKED DEVICE UNSOLICITED RESULTS Performing Organization Address [facility] de Phone Number [facility] [address] [place] [phone] * (ABNORMAL) GLUCOSE METER, POINT OF CARE (06/11/2023 5:08 PM EDT) Glucose Meter 177(H) 70 - 120 mg/dL 06/11/2023 5:12 PM EDT [facility] Blood Whole blood specimen / Unknown 06/11/2023 5:08 PM EDT 06/11/2023 5:12 PM EDT Leo Reich MD LAB POINT OF CARE T EST DOCKED DEVICE UNSOLICITED RESULTS Performing Organization Address [facility] de Phone Number [facility] [address] [place] [phone] * (ABNORMAL) GLUCOSE METER, POINT OF CARE (06/11/2023 12:05 PM EDT) Glucose Meter 176(H) 70 - 120 mg/dL 06/11/2023 12:15 PM EDT [facility] Blood Whole blood specimen / Unknown 06/11/2023 12:05 PM EDT 06/11/2023 12:15 PM EDT Leo Reich MD LAB POINT OF CARE T EST DOCKED DEVICE UNSOLICITED RESULTS [facility] [address] [place] [address] * (ABNORMAL) GLUCOSE METER, POINT OF CARE (06/11/2023 8:03 AM EDT) Glucose Meter 123(H) 70 - 120 mg/dL 06/11/2023 9:17 AM EDT [facility] Blood Whole blood specimen / Unknown 06/11/2023 8:03 AM EDT 06/11/2023 9:17 AM EDT Leo Reich MD LAB POINT OF CARE T EST DOCKED DEVICE UNSOLICITED RESULTS [facility] [address] [place] [address] * (ABNORMAL) CBC (06/11/2023 6:03 AM EDT) WBC 8.86 4.00 - 10.80 K/uL 06/11/2023 7:07 AM EDT LABORATORY [facility] RBC 3.20 3.85 - 5.15 M/uL 06/11/2023 7:07 AM EDT LABORATORY [facility] HGB 8.8(L) 12.0 - 15.3 g/dL 06/11/2023 7:07 AM EDT LABORATORY [facility] HCT 29.4(L) 36.0 - 45.2 % 06/11/2023 7:07 AM EDT LABORATORY [facility] MCV 91.9 81.5 - 97.5 fL 06/11/2023 7:07 AM EDT LABORATORY [facility] MCH 27.5 27.0 - 34.0 pg 06/11/2023 7:07 AM EDT LABORATORY [facility] MCHC 29.9 32.0 - 36.0 g/dL 06/11/2023 7:07 AM EDT LABORATORY [facility] RDW 18.8 11.5 - 15.5 % 06/11/2023 7:07 AM EDT LABORATORY [facility] PLT 235 140 - 400 K/uL 06/11/2023 7:07 AM EDT LABORATORY [facility] MPV 12.7 6.6 - 11.1 fL 06/11/2023 7:07 AM EDT LABORATORY GLH nRBCs 0 <=0 /100 WBCs 06/11/2023 7:07 AM EDT LABORATORY GLH Blood Venous blood specimen / Unknown Venipuncture / Unknown 06/11/2023 6:03 AM EDT 06/11/2023 6:57 AM EDT Lynnette Chacondaisy Rasmussen [facility] LAB BLOOD CHANDA URRUTIA LABORATORY GLH [address] [place] [phone] * (ABNORMAL) BASIC METABOLIC PANEL (06/11/2023 6:03 AM EDT) BUN 29(H) 6 - 20 mg/dL 06/11/2023 7:20 AM EDT LABORATORY GLH Creatinine 1.9(H) 0.5 - 1.0 mg/dL 06/11/2023 7:20 AM EDT LABORATORY GLH Estimated Glomerular Filtration Rate 29(L) >=60 mL/min 06/11/2023 7:20 AM EDT LABORATORY GLH Comment:eGFR is calculated b ased on the CKD-EPI 2020 equation Sodium 138 135 - 146 mmol/L 06/11/2023 7:20 AM EDT LABORATORY GLH Potassium 3.6 3.5 - 5.1 mmol/L 06/11/2023 7:20 AM EDT LABORATORY GLH Chloride 104 98 - 107 mmol/L 06/11/2023 7:20 AM EDT LABORATORY GLH CO2 25 22 - 32 mmol/L 06/11/2023 7:20 AM EDT LABORATORY GLH Anion Gap 9 7 - 15 mmol/L 06/11/2023 7:20 AM EDT LABORATORY GLH Glucose 138(H) 70 - 120 mg/dL 06/11/2023 7:20 AM EDT LABORATORY GLH Calcium 8.8 8.4 - 10.2 mg/dL 06/11/2023 7:20 AM EDT LABORATORY GLH Blood Venous blood specimen / Unknown Venipuncture / Unknown 06/11/2023 6:03 AM EDT 06/11/2023 6:57 AM EDT Lynnette Chacondaisy Rasmussen DP LAB BLOOD ORDE RENAN Performing Organization Address City/[facility]/ZIP Co de Phone Number LABORATORY [address] [address] * (ABNORMAL) GLUCOSE METER, POINT OF CARE (06/10/2023 9:00 PM EDT) Glucose Meter 150(H) 70 - 120 mg/dL 06/10/2023 9:04 PM EDT [facility] Blood Whole blood specimen / Unknown 06/10/2023 9:00 PM EDT 06/10/2023 9:04 PM EDT Power Marshall MD LAB POINT OF CARE T EST DOCKED DEVICE UNSOLICITED RESULTS Performing Organization Address [facility] Co de Phone Number [facility] [address] [place] [phone] * (ABNORMAL) GLUCOSE METER, POINT OF CARE (06/10/2023 4:10 PM EDT) Glucose Meter 132(H) 70 - 120 mg/dL 06/10/2023 4:50 PM EDT [facility] Blood Whole blood specimen / Unknown 06/10/2023 4:10 PM EDT 06/10/2023 4:50 PM EDT Power Marshall MD LAB POINT OF CARE T EST DOCKED DEVICE UNSOLICITED RESULTS Performing Organization Address City/[facility] Co de Phone Number [facility] [address] [place] [phone] * (ABNORMAL) GLUCOSE METER, POINT OF CARE (06/10/2023 11:44 AM EDT) Glucose Meter 128(H) 70 - 120 mg/dL 06/10/2023 1:29 PM EDT [facility] Blood Whole blood specimen / Unknown 06/10/2023 11:44 AM EDT 06/10/2023 1:29 PM EDT Power Marshall MD LAB POINT OF CARE T EST DOCKED DEVICE UNSOLICITED RESULTS [facility] [address] [place] [address] * GLUCOSE METER, POINT OF CARE (06/10/2023 7:47 AM EDT) Glucose Meter 108 70 - 120 mg/dL 06/10/2023 7:56 AM EDT [facility] Blood Whole blood specimen / Unknown 06/10/2023 7:47 AM EDT 06/10/2023 7:56 AM EDT Power Marshall MD LAB POINT OF CARE T EST DOCKED DEVICE UNSOLICITED RESULTS Performing Organization Address [facility] Co de Phone Number [facility] [address] [place] [address] * (ABNORMAL) CBC (06/10/2023 5:44 AM EDT) WBC 8.70 4.00 - 10.80 K/uL 06/10/2023 6:08 AM EDT LABORATORY GL RBC 2.98 3.85 - 5.15 M/uL 06/10/2023 6:08 AM EDT LABORATORY GL HGB 8.3(L) 12.0 - 15.3 g/dL 06/10/2023 6:08 AM EDT LABORATORY GL HCT 27.4(L) 36.0 - 45.2 % 06/10/2023 6:08 AM EDT LABORATORY GL MCV 91.9 81.5 - 97.5 fL 06/10/2023 6:08 AM EDT LABORATORY GL MCH 27.9 27.0 - 34.0 pg 06/10/2023 6:08 AM EDT LABORATORY GL MCHC 30.3 32.0 - 36.0 g/dL 06/10/2023 6:08 AM EDT LABORATORY GL RDW 18.6 11.5 - 15.5 % 06/10/2023 6:08 AM EDT LABORATORY GL PLT 235 140 - 400 K/uL 06/10/2023 6:08 AM EDT LABORATORY GLH MPV 12.6 6.6 - 11.1 fL 06/10/2023 6:08 AM EDT LABORATORY GLH nRBCs 0 <=0 /100 WBCs 06/10/2023 6:08 AM EDT LABORATORY GLH Blood Venous blood specimen / Unknown Venipuncture / Unknown 06/10/2023 5:44 AM EDT 06/10/2023 6:02 AM EDT Lynnette Arriola Valery DPM LAB BLOOD ORDE RENAN LABORATORY GL [address] [place] [address] * (ABNORMAL) BASIC METABOLIC PANEL (06/10/2023 5:44 AM EDT) BUN 31(H) 6 - 20 mg/dL 06/10/2023 6:28 AM EDT LABORATORY GLH Creatinine 2.0(H) 0.5 - 1.0 mg/dL 06/10/2023 6:28 AM EDT LABORATORY GLH Estimated Glomerular Filtration Rate 28(L) >=60 mL/min 06/10/2023 6:28 AM EDT LABORATORY GLH Comment:eGFR is calculated b ased on the CKD-EPI 2020 equation Sodium 137 135 - 146 mmol/L 06/10/2023 6:28 AM EDT LABORATORY GLH Potassium 3.9 3.5 - 5.1 mmol/L 06/10/2023 6:28 AM EDT LABORATORY GLH Chloride 103 98 - 107 mmol/L 06/10/2023 6:28 AM EDT LABORATORY GLH CO2 24 22 - 32 mmol/L 06/10/2023 6:28 AM EDT LABORATORY GLH Anion Gap 10 7 - 15 mmol/L 06/10/2023 6:28 AM EDT LABORATORY GLH Glucose 114 70 - 120 mg/dL 06/10/2023 6:28 AM EDT LABORATORY GLH Calcium 8.8 8.4 - 10.2 mg/dL 06/10/2023 6:28 AM EDT LABORATORY GLH Blood Venous blood specimen / Unknown Venipuncture / Unknown 06/10/2023 5:44 AM EDT 06/10/2023 6:02 AM EDT Lynnette Rasmussen DP LAB BLOOD ORDMauricio URRUTIA LABORATORY [address] [id number] * (ABNORMAL) GLUCOSE METER, POINT OF CARE (06/09/2023 9:18 PM EDT) Glucose Meter 174(H) 70 - 120 mg/dL 06/09/2023 9:20 PM EDT [facility] Blood Whole blood specimen / Unknown 06/09/2023 9:18 PM EDT 06/09/2023 9:20 PM EDT Power Marshall MD LAB POINT OF CARE T EST DOCKED DEVICE UNSOLICITED RESULTS Performing Organization Address [facility] Co de Phone Number [facility] [address] [place] [phone] * (ABNORMAL) GLUCOSE METER, POINT OF CARE (06/09/2023 4:17 PM EDT) Glucose Meter 166(H) 70 - 120 mg/dL 06/09/2023 4:28 PM EDT [facility] Blood Whole blood specimen / Unknown 06/09/2023 4:17 PM EDT 06/09/2023 4:28 PM EDT Power Marshall MD LAB POINT OF CARE T EST DOCKED DEVICE UNSOLICITED RESULTS Performing Organization Address [facility] Co de Phone Number [facility] [address] [place] [phone] * (ABNORMAL) GLUCOSE METER, POINT OF CARE (06/09/2023 11:36 AM EDT) Glucose Meter 139(H) 70 - 120 mg/dL 06/09/2023 11:46 AM EDT [facility] Blood Whole blood specimen / Unknown 06/09/2023 11:36 AM EDT 06/09/2023 11:46 AM EDT Power Marshall MD LAB POINT OF CARE T EST DOCKED DEVICE UNSOLICITED RESULTS Performing Organization Address [facility] Co de Phone Number [facility] [address] [place] [address] * (ABNORMAL) GLUCOSE METER, POINT OF CARE (06/09/2023 7:28 AM EDT) Glucose Meter 130(H) 70 - 120 mg/dL 06/09/2023 7:50 AM EDT [facility] Blood Whole blood specimen / Unknown 06/09/2023 7:28 AM EDT 06/09/2023 7:50 AM EDT Power Marshall MD LAB POINT OF CARE T EST DOCKED DEVICE UNSOLICITED RESULTS Performing Organization Address [facility] de Phone Number [facility] [address] [place] [address] * (ABNORMAL) CBC (06/09/2023 5:22 AM EDT) WBC 9.40 4.00 - 10.80 K/uL 06/09/2023 5:44 AM EDT LABORATORY GLH RBC 2.94 3.85 - 5.15 M/uL 06/09/2023 5:44 AM EDT LABORATORY GLH HGB 7.9(L) 12.0 - 15.3 g/dL 06/09/2023 5:44 AM EDT LABORATORY GLH HCT 27.3(L) 36.0 - 45.2 % 06/09/2023 5:44 AM EDT LABORATORY GLH MCV 92.9 81.5 - 97.5 fL 06/09/2023 5:44 AM EDT LABORATORY GLH MCH 26.9 27.0 - 34.0 pg 06/09/2023 5:44 AM EDT LABORATORY GLH MCHC 28.9 32.0 - 36.0 g/dL 06/09/2023 5:44 AM EDT LABORATORY GLH RDW 18.6 11.5 - 15.5 % 06/09/2023 5:44 AM EDT LABORATORY GL PLT 232 140 - 400 K/uL 06/09/2023 5:44 AM EDT LABORATORY [facility] MPV 12.1 6.6 - 11.1 fL 06/09/2023 5:44 AM EDT LABORATORY GL nRBCs 0 <=0 /100 WBCs 06/09/2023 5:44 AM EDT LABORATORY [facility] Blood Venous blood specimen / Unknown Venipuncture / Unknown 06/09/2023 5:22 AM EDT 06/09/2023 5:41 AM EDT Lynnette Rasmussen DPM LAB BLOOD ORDE RENAN LABORATORY [facility] [address] [place] [address] * (ABNORMAL) BASIC METABOLIC PANEL (06/09/2023 5:22 AM EDT) BUN 32(H) 6 - 20 mg/dL 06/09/2023 6:05 AM EDT LABORATORY GL Creatinine 2.0(H) 0.5 - 1.0 mg/dL 06/09/2023 6:05 AM EDT LABORATORY GL Estimated Glomerular Filtration Rate 28(L) >=60 mL/min 06/09/2023 6:05 AM EDT LABORATORY GL Comment:eGFR is calculated b ased on the CKD-EPI 2020 equation Sodium 140 135 - 146 mmol/L 06/09/2023 6:05 AM EDT LABORATORY GLH Potassium 3.9 3.5 - 5.1 mmol/L 06/09/2023 6:05 AM EDT LABORATORY GLH Chloride 105 98 - 107 mmol/L 06/09/2023 6:05 AM EDT LABORATORY GLH CO2 24 22 - 32 mmol/L 06/09/2023 6:05 AM EDT LABORATORY GLH Anion Gap 11 7 - 15 mmol/L 06/09/2023 6:05 AM EDT LABORATORY GLH Glucose 139(H) 70 - 120 mg/dL 06/09/2023 6:05 AM EDT LABORATORY GLH Calcium 8.7 8.4 - 10.2 mg/dL 06/09/2023 6:05 AM EDT LABORATORY [facility] Blood Venous blood specimen / Unknown Venipuncture / Unknown 06/09/2023 5:22 AM EDT 06/09/2023 5:41 AM EDT Lynnette Rasmussen [facility] LAB BLOOD ORDE RENAN Performing Organization Address City/[facility]/ZIP Co de Phone Number LABORATORY [facility] [address] [place] [address] * (ABNORMAL) GLUCOSE METER, POINT OF CARE (06/08/2023 9:33 PM EDT) Glucose Meter 200(H) 70 - 120 mg/dL 06/08/2023 9:46 PM EDT [facility] Blood Whole blood specimen / Unknown 06/08/2023 9:33 PM EDT 06/08/2023 9:46 PM EDT Leo Reich MD LAB POINT OF CARE T EST DOCKED DEVICE UNSOLICITED RESULTS Performing Organization Address [facility] de Phone Number [facility] [address] [place] [phone] * (ABNORMAL) GLUCOSE METER, POINT OF CARE (06/08/2023 4:35 PM EDT) Glucose Meter 161(H) 70 - 120 mg/dL 06/08/2023 4:39 PM EDT [facility] Blood Whole blood specimen / Unknown 06/08/2023 4:35 PM EDT 06/08/2023 4:39 PM EDT Leo Reich MD LAB POINT OF CARE T EST DOCKED DEVICE UNSOLICITED RESULTS Performing Organization Address [facility] Co de Phone Number [facility] [address] [place] [address] * (ABNORMAL) GLUCOSE METER, POINT OF CARE (06/08/2023 11:26 AM EDT) Glucose Meter 132(H) 70 - 120 mg/dL 06/08/2023 12:03 PM EDT [facility] Blood Whole blood specimen / Unknown 06/08/2023 11:26 AM EDT 06/08/2023 12:03 PM EDT Leo Reich MD LAB POINT OF CARE T EST DOCKED DEVICE UNSOLICITED RESULTS Performing Organization Address [facility]/ZIP Co de Phone Number [facility] [address] [place] [address] * (ABNORMAL) GLUCOSE METER, POINT OF CARE (06/08/2023 7:13 AM EDT) Glucose Meter 143(H) 70 - 120 mg/dL 06/08/2023 7:26 AM EDT [facility] Blood Whole blood specimen / Unknown 06/08/2023 7:13 AM EDT 06/08/2023 7:26 AM EDT Leo Reich MD LAB POINT OF CARE T EST DOCKED DEVICE UNSOLICITED RESULTS Performing Organization Address [facility] Co de Phone Number [facility] [address] [place] [address] * (ABNORMAL) CBC (06/08/2023 4:33 AM EDT) WBC 8.45 4.00 - 10.80 K/uL 06/08/2023 4:55 AM EDT LABORATORY GLH RBC 2.91 3.85 - 5.15 M/uL 06/08/2023 4:55 AM EDT LABORATORY GLH HGB 7.9(L) 12.0 - 15.3 g/dL 06/08/2023 4:55 AM EDT LABORATORY GLH HCT 26.7(L) 36.0 - 45.2 % 06/08/2023 4:55 AM EDT LABORATORY GLH MCV 91.8 81.5 - 97.5 fL 06/08/2023 4:55 AM EDT LABORATORY GLH MCH 27.1 27.0 - 34.0 pg 06/08/2023 4:55 AM EDT LABORATORY GLH MCHC 29.6 32.0 - 36.0 g/dL 06/08/2023 4:55 AM EDT LABORATORY GL RDW 18.6 11.5 - 15.5 % 06/08/2023 4:55 AM EDT LABORATORY GL PLT 241 140 - 400 K/uL 06/08/2023 4:55 AM EDT LABORATORY [facility] MPV 12.0 6.6 - 11.1 fL 06/08/2023 4:55 AM EDT LABORATORY GL nRBCs 0 <=0 /100 WBCs 06/08/2023 4:55 AM EDT LABORATORY GL Blood Venous blood specimen / Unknown Venipuncture / Unknown 06/08/2023 4:33 AM EDT 06/08/2023 4:52 AM EDT Lynnette Arriola Valery DP LAB BLOOD [facility] Organization Address City/State/ZIP Co de Phone Number LABORATORY [address] [address] * (ABNORMAL) BASIC METABOLIC PANEL (06/08/2023 4:33 AM EDT) BUN 33(H) 6 - 20 mg/dL 06/08/2023 5:15 AM EDT LABORATORY GL Creatinine 2.1(H) 0.5 - 1.0 mg/dL 06/08/2023 5:15 AM EDT LABORATORY GL Estimated Glomerular Filtration Rate 26(L) >=60 mL/min 06/08/2023 5:15 AM EDT LABORATORY [facility] Comment:eGFR is calculated b ased on the CKD-EPI 2020 equation Sodium 137 135 - 146 mmol/L 06/08/2023 5:15 AM EDT LABORATORY [facility] Potassium 3.8 3.5 - 5.1 mmol/L 06/08/2023 5:15 AM EDT LABORATORY [facility] Chloride 104 98 - 107 mmol/L 06/08/2023 5:15 AM EDT LABORATORY [facility] CO2 23 22 - 32 mmol/L 06/08/2023 5:15 AM EDT LABORATORY [facility] Anion Gap 10 7 - 15 mmol/L 06/08/2023 5:15 AM EDT LABORATORY [facility] Glucose 142(H) 70 - 120 mg/dL 06/08/2023 5:15 AM EDT LABORATORY [facility] Calcium 8.7 8.4 - 10.2 mg/dL 06/08/2023 5:15 AM EDT LAB[facility]ATORY [facility] Blood Venous blood specimen / Unknown Venipuncture / Unknown 06/08/2023 4:33 AM EDT 06/08/2023 4:52 AM EDT Lynnette Rasmussen DP LAB BLOOD [facility] [address] [place], [place] [id number] * (ABNORMAL) GLUCOSE METER, POINT OF CARE (06/07/2023 9:36 PM EDT) Glucose Meter 151(H) 70 - 120 mg/dL 06/07/2023 9:41 PM EDT [facility] Blood Whole blood specimen / Unknown 06/07/2023 9:36 PM EDT 06/07/2023 9:41 PM EDT Leo Reich MD LAB POINT OF CARE T EST DOCKED DEVICE UNSOLICITED RESULTS Performing Organization Address [facility] Co de Phone Number [facility] [address] [place] [address] * (ABNORMAL) GLUCOSE METER, POINT OF CARE (06/07/2023 5:11 PM EDT) Glucose Meter 156(H) 70 - 120 mg/dL 06/07/2023 5:48 PM EDT [facility] Blood Whole blood specimen / Unknown 06/07/2023 5:11 PM EDT 06/07/2023 5:48 PM EDT Leo Reich MD LAB POINT OF CARE T EST DOCKED DEVICE UNSOLICITED RESULTS Performing Organization Address [facility] Co de Phone Number [facility] [address] [place] [phone] * CULTURE, BLOOD (06/07/2023 4:03 PM EDT) Blood Culture Growth No growth 06/12/2023 5:01 PM EDT LABORATORY [facility] Blood Venous blood specimen / Unknown Venipuncture / Unknown 06/07/2023 4:03 PM EDT 06/07/2023 4:43 PM EDT Narrative LABORATORY [facility] - 06/12/2023 5:01 PM EDT No anaerobic bottle received. Leo Reich MD LAB MICRO - GENERAL ORDERABLES LABORATORY [address] [address] * CULTURE, BLOOD (06/07/2023 4:03 PM EDT) Blood Culture Growth No growth 06/12/2023 5:01 PM EDT LABORATORY [facility] Blood Venous blood specimen / Unknown Venipuncture / Unknown 06/07/2023 4:03 PM EDT 06/07/2023 4:43 PM EDT Narrative LABORATORY [facility] - 06/12/2023 5:01 PM EDT No anaerobic bottle received. Leo Reich MD LAB MICRO - GENERAL ORDERABLES Performing Organization Address City/[facility]/ZIP Co de Phone Number LABORATORY [address] [address] * (ABNORMAL) GLUCOSE METER, POINT OF CARE (06/07/2023 11:53 AM EDT) Glucose Meter 169(H) 70 - 120 mg/dL 06/07/2023 12:32 PM EDT [facility] Blood Whole blood specimen / Unknown 06/07/2023 11:53 AM EDT 06/07/2023 12:32 PM EDT Leo Reich MD LAB POINT OF CARE T EST DOCKED DEVICE UNSOLICITED RESULTS [facility] [address] [place], [place] [address] [address] * (ABNORMAL) GLUCOSE METER, POINT OF CARE (06/07/2023 7:45 AM EDT) Glucose Meter 133(H) 70 - 120 mg/dL 06/07/2023 8:21 AM EDT [facility] Blood Whole blood specimen / Unknown 06/07/2023 7:45 AM EDT 06/07/2023 8:21 AM EDT Leo Reich MD LAB POINT OF CARE T EST DOCKED DEVICE UNSOLICITED RESULTS [facility] [address] [place] [address] * (ABNORMAL) CBC (06/07/2023 5:38 AM EDT) WBC 8.35 4.00 - 10.80 K/uL 06/07/2023 5:56 AM EDT LABORATORY GL RBC 2.90 3.85 - 5.15 M/uL 06/07/2023 5:56 AM EDT LABORATORY GL HGB 7.9(L) 12.0 - 15.3 g/dL 06/07/2023 5:56 AM EDT LABORATORY [facility] HCT 26.4(L) 36.0 - 45.2 % 06/07/2023 5:56 AM EDT LABORATORY GL MCV 91.0 81.5 - 97.5 fL 06/07/2023 5:56 AM EDT LABORATORY GL MCH 27.2 27.0 - 34.0 pg 06/07/2023 5:56 AM EDT LABORATORY GL MCHC 29.9 32.0 - 36.0 g/dL 06/07/2023 5:56 AM EDT LABORATORY GL RDW 18.7 11.5 - 15.5 % 06/07/2023 5:56 AM EDT LABORATORY GL PLT 246 140 - 400 K/uL 06/07/2023 5:56 AM EDT LABORATORY GL MPV 12.1 6.6 - 11.1 fL 06/07/2023 5:56 AM EDT LABORATORY GL nRBCs 0 <=0 /100 WBCs 06/07/2023 5:56 AM EDT LABORATORY [facility] Blood Venous blood specimen / Unknown Venipuncture / Unknown 06/07/2023 5:38 AM EDT 06/07/2023 5:41 AM EDT Lynnette Rasmussen DP LAB BLOOD ORDE RENAN [facility] Organization Address City/State/ZIP Co de Phone Number LABORATORY [facility] [address] [place] [phone] * (ABNORMAL) BASIC METABOLIC PANEL (06/07/2023 5:38 AM EDT) BUN 35(H) 6 - 20 mg/dL 06/07/2023 6:41 AM EDT LABORATORY [facility] Creatinine 2.2(H) 0.5 - 1.0 mg/dL 06/07/2023 6:41 AM EDT LABORATORY [facility] Estimated Glomerular Filtration Rate 25(L) >=60 mL/min 06/07/2023 6:41 AM EDT LABORATORY [facility] Comment:eGFR is calculated b ased on the CKD-EPI 2020 equation Sodium 138 135 - 146 mmol/L 06/07/2023 6:41 AM EDT LABORATORY [facility] Potassium 3.9 3.5 - 5.1 mmol/L 06/07/2023 6:41 AM EDT LABORATORY [facility] Chloride 105 98 - 107 mmol/L 06/07/2023 6:41 AM EDT LABORATORY [facility] CO2 21(L) 22 - 32 mmol/L 06/07/2023 6:41 AM EDT LABORATORY [facility] Anion Gap 12 7 - 15 mmol/L 06/07/2023 6:41 AM EDT LABORATORY [facility] Glucose 148(H) 70 - 120 mg/dL 06/07/2023 6:41 AM EDT LABORATORY [facility] Calcium 8.5 8.4 - 10.2 mg/dL 06/07/2023 6:41 AM EDT LABORATORY [facility] Blood Venous blood specimen / Unknown Venipuncture / Unknown 06/07/2023 5:38 AM EDT 06/07/2023 5:41 AM EDT Lynnette Rasmussen [facility] LAB BLOOD ORDE RENAN Performing Organization Address City/[facility]/ZIP Co de Phone Number LABORATORY [address] [address] * (ABNORMAL) GLUCOSE METER, POINT OF CARE (06/07/2023 4:34 AM EDT) Glucose Meter 123(H) 70 - 120 mg/dL 06/07/2023 4:41 AM EDT [facility] Blood Whole blood specimen / Unknown 06/07/2023 4:34 AM EDT 06/07/2023 4:41 AM EDT Jose Martin Wolff MD LAB POINT OF CARE TE ST DOCKED DEVICE UNSOLICITED RESULTS Performing Organization Address [facility] Co de Phone Number [facility] [address] [place] [phone] * (ABNORMAL) GLUCOSE METER, POINT OF CARE (06/06/2023 9:31 PM EDT) Glucose Meter 149(H) 70 - 120 mg/dL 06/06/2023 9:34 PM EDT [facility] Blood Whole blood specimen / Unknown 06/06/2023 9:31 PM EDT 06/06/2023 9:34 PM EDT Jose Martin Wolff MD LAB POINT OF CARE TE ST DOCKED DEVICE UNSOLICITED RESULTS Performing Organization Address [facility] Co de Phone Number [facility] [address] [place] [phone] * (ABNORMAL) GLUCOSE METER, POINT OF CARE (06/06/2023 4:28 PM EDT) Glucose Meter 142(H) 70 - 120 mg/dL 06/06/2023 5:29 PM EDT [facility] Blood Whole blood specimen / Unknown 06/06/2023 4:28 PM EDT 06/06/2023 5:29 PM EDT Jose Matrin Wolff MD LAB POINT OF CARE TE ST DOCKED DEVICE UNSOLICITED RESULTS [facility] [address] [place] [address] * (ABNORMAL) CULTURE, TISSUE, AEROBIC AND ANAEROBIC (06/06/2023 1:38 PM EDT) Culture Growth From broth only Staphylococcus aureus(A) MICROBROTH DILUTIONS 06/11/2023 9:53 AM EDT LABORATORY [facility] Stain Description No polymorphonuclear leukocytes seen 06/11/2023 9:53 AM EDT LABORATORY [facility] Stain Description No organisms seen 06/11/2023 9:53 AM EDT LABORATORY [facility] Bone Right heel structure / Unknown 06/06/2023 1:38 PM EDT 06/06/2023 1:[address] [facility] LABORATORY [facility] - 06/11/2023 9:53 AM EDT No anaerobic growth. Organism Antibiotic Method Susceptibility Staphylococcus aureus Clindamycin MICROBROTH DILUTIONS <=0.25: Susceptible Staphylococcus aureus Erythromycin MICROBROTH DILUTIONS <=0.25: Susceptible Staphylococcus aureus Oxacillin MICROBROTH DILUTIONS 0.5: Susceptible Staphylococcus aureus Penicillin G MICROBROTH DILUTIONS Resistant Staphylococcus aureus Tetracycline MICROBROTH DILUTIONS <=1: Susceptible Staphylococcus aureus Trimeth/Sulfametho xazo le MICROBROTH DILUTIONS <=10: Susceptible Staphylococcus aureus Vancomycin MICROBROTH DILUTIONS <=0.5: Susceptible Lynnette Rasmussen DPM LAB MICRO - GE NERAL ORDERABLES LABORATORY [facility] [address] [place] [address] * SURGICAL PATHOLOGY (06/06/2023 1:38 PM EDT) Final Diagnosis A. Bone, Right Heel, biopsy: Reactive bone changes with sparse lymphocytes and plasma cells in marrow space (see comment) Comment: The findings are not specific but could be compatible with chronic osteomyelitis in the appropriate clinical and radiographic context. No active acute osteomyelitis is identified on examined sections. 06/11/2023 12:32 PM EDT LABORATORY GM Gross Description A. Heel, Right. Received in formalin with a container labeled with "Alexandria Smith", "[id number]", "[id number]" and " right heel". Received is a red-brown cylindrical portion of bone measuring 0.5 x 0.2 cm. The specimen is placed in a biopsy bag and submitted in A1 following decalcification. Gross By: 06/11/2023 12:32 PM EDT LABORATORY [facility] Sign Out Location Pathologist sign out performed at [facility] ([facility]), [facility] [place] [address]. 06/11/2023 12:32 PM EDT LABORATORY [facility] Photographic images and diagrams represent parson findings in this case; they are not intended to replace a complete review of the final diagnostic report. The following statement applies to Flow Cytometry, Histology, In situ Hybridization Assays and Molecular Genetics. This test was developed and performed at [facility] and its performance characteristics determined by [facility] [employer]. It has not been cleared or approved by the U.S. Food and Drug Administration. The FDA has determined that such clearance or approval is not necessary. This test is used for clinical purposes. It should not be regarded as investigational or for research. Special stains, including histochemical stains, and studies using immunologic and AREILLA methodology (where applicable) are performed with appropriate positive and negative control reactions. 06/11/2023 12:32 PM EDT LABORATORY [facility] Tissue Right heel structure / Unknown 06/06/2023 1:38 PM EDT 06/06/2023 2:20 PM EDT Lynnette Rasmussen DPBrielle LAB PATHOLOGY ORDERABLES LABORATORY [address] [address] * (ABNORMAL) CULTURE, WOUND, DEEP, AEROBIC AND ANAEROBIC (06/06/2023 12:39 PM EDT) Culture Growth Moderate Staphylococcus aureus(A) MICROBROTH DILUTIONS 06/11/2023 9:53 AM EDT LABORATORY [facility] Stain Description Few Polymorphonuclear leukocytes 06/11/2023 9:53 AM EDT LABORATORY [facility] Stain Description Occasional Gram positive cocci 06/11/2023 9:53 AM EDT LABORATORY [facility] Stain Description Occasional Gram positive bacilli 06/11/2023 9:53 AM EDT LABORATORY [facility] Deep Wound Right heel structure / Unknown Non-blood Collection / Unknown 06/06/2023 12:39 PM EDT 06/06/2023 12:41 PM EDT Narrative LABORATORY [facility] - 06/11/2023 9:53 AM EDT Moderate growth normal genevieve No anaerobic growth. Organism Antibiotic Method Susceptibility Staphylococcus aureus Clindamycin MICROBROTH DILUTIONS <=0.25: Susceptible Staphylococcus aureus Erythromycin MICROBROTH DILUTIONS <=0.25: Susceptible Staphylococcus aureus Oxacillin MICROBROTH DILUTIONS <=0.25: Susceptible Staphylococcus aureus Penicillin G MICROBROTH DILUTIONS Resistant Staphylococcus aureus Tetracycline MICROBROTH DILUTIONS <=1: Susceptible Staphylococcus aureus Trimeth/Sulfametho xazo le MICROBROTH DILUTIONS <=10: Susceptible Staphylococcus aureus Vancomycin MICROBROTH DILUTIONS 1: Susceptible Jose Martin Wolff MD LAB MICRO - GENERAL ORDERABLES LABORATORY [facility] [address] [place] [address] * XR CHEST 1 VIEW (06/06/2023 12:36 PM EDT) Anatomical Region Laterality Modality Chest Digital Radiogra phy 06/06/2023 12:2 0 PM EDT Impressions 06/06/2023 12:52 PM EDT IMPRESSION: 1. Persistent bilateral pulmonary edema, pneumonia, or both. 2. Pleural effusions not well seen on this portable exam. THIS DOCUMENT HAS BEEN ELECTRONICALLY SIGNED BY DEYANIRA DELEON MD Narrative 06/06/2023 12:52 PM EDT PROCEDURE INFORMATION: Exam: XR Chest Exam date and time: 06/06/2023 12:20 PM Age: 63 years old Clinical indication: Other: Swelling; Additional info: Anasarca and heart failure TECHNIQUE: Imaging protocol: Radiologic exam of the chest. Views: 1 view. COMPARISON: CT ABD/PELVIS WO IV/ORAL CONTRAST 06/02/2023 8:19 PM FINDINGS: Tubes, catheters and devices: EKG leads project over the chest. Lungs: Bilateral diffuse infiltrates and basal consolidation. Pleural spaces: No pneumothorax. Heart/Mediastinum: Cardiomegaly. Vasculature: Atherosclerotic arch. Bones/joints: Unremarkable. Procedure Note Deyanira Deleon MD - 06/06/2023 PROCEDURE INFORMATION: Exam: XR Chest Exam date and time: 06/06/2023 12:20 PM Age: 63 years old Clinical indication: Other: Swelling; Additional info: Anasarca and heart failure TECHNIQUE: Imaging protocol: Radiologic exam of the chest. Views: 1 view. COMPARISON: CT ABD/PELVIS WO IV/ORAL CONTRAST 06/02/2023 8:19 PM FINDINGS: Tubes, catheters and devices: EKG leads project over the chest. Lungs: Bilateral diffuse infiltrates and basal consolidation. Pleural spaces: No pneumothorax. Heart/Mediastinum: Cardiomegaly. Vasculature: Atherosclerotic arch. Bones/joints: Unremarkable. IMPRESSION IMPRESSION: 1. Persistent bilateral pulmonary edema, pneumonia, or both. 2. Pleural effusions not well seen on this portable exam. THIS DOCUMENT HAS BEEN ELECTRONICALLY SIGNED BY DEYANIRA DELEON MD Jose Martin Wolff MD RADIOLOGY (RAD GENER AL) * GLUCOSE METER, POINT OF CARE (06/06/2023 11:37 AM EDT) Glucose Meter 112 70 - 120 mg/dL 06/06/2023 11:45 AM EDT [facility] Blood Whole blood specimen / Unknown 06/06/2023 11:37 AM EDT 06/06/2023 11:45 AM EDT Jose Martin Wolff MD LAB POINT OF CARE TE ST DOCKED DEVICE UNSOLICITED RESULTS [facility] [address] [place] [address] * (ABNORMAL) GLUCOSE METER, POINT OF CARE (06/06/2023 7:38 AM EDT) Glucose Meter 123(H) 70 - 120 mg/dL 06/06/2023 7:48 AM EDT [facility] Blood Whole blood specimen / Unknown 06/06/2023 7:38 AM EDT 06/06/2023 7:48 AM EDT Jose Martin Wolff MD LAB POINT OF CARE TE ST DOCKED DEVICE UNSOLICITED RESULTS [facility] [address] [facility] [place] [address] * (ABNORMAL) CBC (06/06/2023 5:32 AM EDT) WBC 8.00 4.00 - 10.80 K/uL 06/06/2023 5:56 AM EDT LABORATORY [facility] RBC 2.92 3.85 - 5.15 M/uL 06/06/2023 5:56 AM EDT LABORATORY [facility] HGB 7.9(L) 12.0 - 15.3 g/dL 06/06/2023 5:56 AM EDT LABORATORY [facility] HCT 27.0(L) 36.0 - 45.2 % 06/06/2023 5:56 AM EDT LABORATORY [facility] MCV 92.5 81.5 - 97.5 fL 06/06/2023 5:56 AM EDT LABORATORY [facility] MCH 27.1 27.0 - 34.0 pg 06/06/2023 5:56 AM EDT LABORATORY GL MCHC 29.3 32.0 - 36.0 g/dL 06/06/2023 5:56 AM EDT LABORATORY [facility] RDW 18.6 11.5 - 15.5 % 06/06/2023 5:56 AM EDT LABORATORY [facility] PLT 252 140 - 400 K/uL 06/06/2023 5:56 AM EDT LABORATORY [facility] MPV 12.1 6.6 - 11.1 fL 06/06/2023 5:56 AM EDT LABORATORY [facility] nRBCs 0 <=0 /100 WBCs 06/06/2023 5:56 AM EDT LAB[facility]ATORY [facility] Blood Venous blood specimen / Unknown Venipuncture / Unknown 06/06/2023 5:32 AM EDT 06/06/2023 5:50 AM EDT Lynnette Rasmussen DPM LAB BLOOD ORDE RABLES LABORATORY [facility] [address] [place] [address] * (ABNORMAL) BASIC METABOLIC PANEL (06/06/2023 5:32 AM EDT) BUN 38(H) 6 - 20 mg/dL 06/06/2023 6:14 AM EDT LABORATORY [facility] Creatinine 2.3(H) 0.5 - 1.0 mg/dL 06/06/2023 6:14 AM EDT LABORATORY [facility] Estimated Glomerular Filtration Rate 23(L) >=60 mL/min 06/06/2023 6:14 AM EDT LABORATORY [facility] Comment:eGFR is calculated b ased on the CKD-EPI 2020 equation Sodium 137 135 - 146 mmol/L 06/06/2023 6:14 AM EDT LABORATORY [facility] Potassium 4.1 3.5 - 5.1 mmol/L 06/06/2023 6:14 AM EDT LABORATORY [facility] Chloride 106 98 - 107 mmol/L 06/06/2023 6:14 AM EDT LABORATORY [facility] CO2 21(L) 22 - 32 mmol/L 06/06/2023 6:14 AM EDT LAB[facility]ATORY [facility] Anion Gap 10 7 - 15 mmol/L 06/06/2023 6:14 AM EDT LABORATORY [facility] Glucose 129(H) 70 - 120 mg/dL 06/06/2023 6:14 AM EDT LABORATORY [facility] Calcium 8.6 8.4 - 10.2 mg/dL 06/06/2023 6:14 AM EDT LABORATORY [facility] Blood Venous blood specimen / Unknown Venipuncture / Unknown 06/06/2023 5:32 AM EDT 06/06/2023 5:50 AM EDT Lynnette Zeinab Rasmussen [facility] LAB BLOOD ORDMauricio URRUTIA LABORATORY [facility] [address] [place] [address] * CULTURE, URINE, QUANTITATIVE (06/06/2023 12:18 AM EDT) Culture Growth Multiple genevieve suggests contamination or colonization 06/08/2023 8:36 AM EDT LABORATORY [facility] Urine Urine specimen obtained by clean catch procedure / Unknown Non-blood Collection / Unknown 06/06/2023 12:18 AM EDT 06/06/2023 12:24 AM EDT Ziggy Bowen MD LAB MICRO - GENERAL ORDERABLES Performing Organization Address City/[facility]/ZIP Co de Phone Number LABORATORY [facility] [address] [place] [address] * (ABNORMAL) GLUCOSE METER, POINT OF CARE (06/05/2023 9:21 PM EDT) Glucose Meter 166(H) 70 - 120 mg/dL 06/05/2023 9:27 PM EDT [facility] Blood Whole blood specimen / Unknown 06/05/2023 9:21 PM EDT 06/05/2023 9:27 PM EDT Leo Reich MD LAB POINT OF CARE T EST DOCKED DEVICE UNSOLICITED RESULTS Performing Organization Address [facility] de Phone Number [facility] [address] [place] [address] * (ABNORMAL) GLUCOSE METER, POINT OF CARE (06/05/2023 4:20 PM EDT) Glucose Meter 141(H) 70 - 120 mg/dL 06/05/2023 4:38 PM EDT [facility] Blood Whole blood specimen / Unknown 06/05/2023 4:20 PM EDT 06/05/2023 4:38 PM EDT Leo Reich MD LAB POINT OF CARE T EST DOCKED DEVICE UNSOLICITED RESULTS Performing Organization Address [facility] Co de Phone Number [facility] [address] [place] [address] * (ABNORMAL) GLUCOSE METER, POINT OF CARE (06/05/2023 11:44 AM EDT) Glucose Meter 154(H) 70 - 120 mg/dL 06/05/2023 12:02 PM EDT [facility] Blood Whole blood specimen / Unknown 06/05/2023 11:44 AM EDT 06/05/2023 12:02 PM EDT Leo Reich MD LAB POINT OF CARE T EST DOCKED DEVICE UNSOLICITED RESULTS Performing Organization Address [facility]/ZIP Co de Phone Number [facility] [address] [place] [address] * (ABNORMAL) GLUCOSE METER, POINT OF CARE (06/05/2023 7:25 AM EDT) Glucose Meter 125(H) 70 - 120 mg/dL 06/05/2023 7:31 AM EDT [facility] Blood Whole blood specimen / Unknown 06/05/2023 7:25 AM EDT 06/05/2023 7:31 AM EDT Leo Reich MD LAB POINT OF CARE T EST DOCKED DEVICE UNSOLICITED RESULTS Performing Organization Address [facility] Co de Phone Number [facility] [address] [place] [address] * (ABNORMAL) BASIC METABOLIC PANEL (06/05/2023 5:57 AM EDT) BUN 39(H) 6 - 20 mg/dL 06/05/2023 6:21 AM EDT LABORATORY [facility] Creatinine 2.2(H) 0.5 - 1.0 mg/dL 06/05/2023 6:21 AM EDT LABORATORY [facility] Estimated Glomerular Filtration Rate 24(L) >=60 mL/min 06/05/2023 6:21 AM EDT LABORATORY [facility] Comment:eGFR is calculated b ased on the CKD-EPI 2020 equation Sodium 138 135 - 146 mmol/L 06/05/2023 6:21 AM EDT LABORATORY [facility] Potassium 4.5 3.5 - 5.1 mmol/L 06/05/2023 6:21 AM EDT LABORATORY [facility] Chloride 106 98 - 107 mmol/L 06/05/2023 6:21 AM EDT LABORATORY [facility] CO2 22 22 - 32 mmol/L 06/05/2023 6:21 AM EDT LABORATORY GL Anion Gap 10 7 - 15 mmol/L 06/05/2023 6:21 AM EDT LABORATORY [facility] Glucose 133(H) 70 - 120 mg/dL 06/05/2023 6:21 AM EDT LABORATORY GL Calcium 8.7 8.4 - 10.2 mg/dL 06/05/2023 6:21 AM EDT LABORATORY [facility] Blood Venous blood specimen / Unknown Venipuncture / Unknown 06/05/2023 5:57 AM EDT 06/05/2023 6:01 AM EDT Vazquez Moura MD LAB BLOOD ORD ERABLES LABORATORY [facility] [address] [place] [address] * (ABNORMAL) CBC (06/05/2023 5:57 AM EDT) WBC 8.22 4.00 - 10.80 K/uL 06/05/2023 6:07 AM EDT LABORATORY [facility] RBC 2.82 3.85 - 5.15 M/uL 06/05/2023 6:07 AM EDT LABORATORY [facility] HGB 8.1(L) 12.0 - 15.3 g/dL 06/05/2023 6:07 AM EDT LABORATORY [facility] HCT 26.1(L) 36.0 - 45.2 % 06/05/2023 6:07 AM EDT LABORATORY [facility] MCV 92.6 81.5 - 97.5 fL 06/05/2023 6:07 AM EDT LABORATORY [facility] MCH 28.7 27.0 - 34.0 pg 06/05/2023 6:07 AM EDT LABORATORY [facility] MCHC 31.0 32.0 - 36.0 g/dL 06/05/2023 6:07 AM EDT LABORATORY [facility] RDW 18.6 11.5 - 15.5 % 06/05/2023 6:07 AM EDT LABORATORY [facility] PLT 298 140 - 400 K/uL 06/05/2023 6:07 AM EDT LABORATORY [facility] MPV 12.1 6.6 - 11.1 fL 06/05/2023 6:07 AM EDT LABORATORY [facility] nRBCs 0 <=0 /100 WBCs 06/05/2023 6:07 AM EDT LABORATORY [facility] Blood Venous blood specimen / Unknown Venipuncture / Unknown 06/05/2023 5:57 AM EDT 06/05/2023 6:01 AM EDT Vazquez Moura MD LAB BLOOD ORD ERABLES LABORATORY [facility] [address] [place], [place] [id number] * (ABNORMAL) GLUCOSE METER, POINT OF CARE (06/04/2023 9:26 PM EDT) Glucose Meter 141(H) 70 - 120 mg/dL 06/04/2023 9:35 PM EDT [facility] Blood Whole blood specimen / Unknown 06/04/2023 9:26 PM EDT 06/04/2023 9:35 PM EDT Vazquez Moura MD LAB POINT OF CARE TEST DOCKED DEVICE UNSOLICITED RESULTS Performing Organization Address [facility] de Phone Number [facility] [address] [place] [phone] * (ABNORMAL) GLUCOSE METER, POINT OF CARE (06/04/2023 4:21 PM EDT) Glucose Meter 160(H) 70 - 120 mg/dL 06/04/2023 4:23 PM EDT [facility] Blood Whole blood specimen / Unknown 06/04/2023 4:21 PM EDT 06/04/2023 4:23 PM EDT Vazquez Moura MD LAB POINT OF CARE TEST DOCKED DEVICE UNSOLICITED RESULTS Performing Organization Address [facility] Co de Phone Number [facility] [address] [place] [phone] * ECHO, COMPLETE (2D), TRANS-THORACIC (06/04/2023 4:16 PM EDT) LEFT VENTRICULAR EJECTION FRACTION 55 % [employer] CARDIOLOGY 06/04/2023 3:51 PM EDT Ziggy Bowen MD ECHOCARDIOLOGY [employer] CARDIOLOGY * [facility] ANKLE BRACHIAL INDICES WITH PPG (DIABETIC FOOT/VASOSPASM) (06/04/2023 2:08 PM EDT) Anatomical Region Laterality Modality Extremity, Ankle, Vascular, Lower Extremity, Jose t Ultrasound Impressions 06/04/2023 4:46 PM EDT : ED at rest cannot be calculated due to medial calcinosis. Exam limited by patient size. For the right lower extremity: The actual ankle brachial index could not be calculated due to medial calcinosis. Lower extremity Doppler Evaluation at rest is consistent with moderate arterial occlusive disease. For the left lower extremity: The actual ankle brachial index could not be calculated due to medial calcinosis. Lower extremity Doppler Evaluation at rest is consistent with mild arterial occlusive disease. Narrative 06/04/2023 4:46 PM EDT VASCULAR LAB RESULTS DATE OF EXAMINATION: 06/04/23 INDICATION: Right heel wound ANKLE BRACHIAL INDEX OF THE LOWER EXTREMITIES WITH EVALUATION FOR VASOSPASM Immediately before proceeding with the vascular lab procedure reported below, the identity of the patient, the correct exam and the correct procedural site were identified. Exam is performed at bedside. Exam limited by body habitus. Continuous wave doppler and appropriate size pressure cuffs were utilized during the examination. Findings: The right and left brachial artery blood pressure are 196 and 172 mmHg respectively. The right posterior tibial artery waveform is biphasic and has an amplitude which is decreased. The right dorsalis pedis artery waveform is biphasic and has an amplitude which is decreased. The right peroneal artery waveform is audible but could not be recorded. The tibial pressures range from 186 mmHg to 196 mmHg. Right foot great toe pressure is 147 mmHg. For baseline right foot PPG amplitude: Digit 1 is excellent. Digit 2 is good. Digit 3 is good. Digit 4 is decreased. Digit 5 is decreased. The left posterior tibial artery is not identified. The left dorsalis pedis artery waveform is triphasic and has an amplitude which is excellent. The left peroneal artery waveform is triphasic and has an amplitude which is good. The tibial pressures range from 188 mmHg to 195 mmHg. Left great toe pressure is 223 mmHg. For baseline left foot PPG amplitude: Digit 1 is good. Digit 2 is excellent. Digit 3 is good. Digit 4 is excellent. Digit 5 is good. Lynnette Arriola Valery DPM RAD VASCULAR * MRI ANKLE RIGHT WO CONTRAST (06/04/2023 12:19 PM EDT) Anatomical Region Laterality Modality Lower Extremity, Ankle Magnetic Resonance 06/04/2023 1:31 PM EDT Impressions 06/04/2023 1:29 PM EDT IMPRESSION 1. D soft tissue wound is seen at the plantar aspect of the heel. Faint bone marrow edema is seen in the subjacent bone involving the plantar and posterior aspect of the calcaneus, which is suspicious for early osteomyelitis. Reactive edema related to acute plantar fasciitis could also appears similar. 2. Acute plantar fasciitis. 3. Diffuse soft tissue edema and swelling, which may represent cellulitis, venous stasis, lymphedema, or dependent edema in appropriate clinical setting. Limited assessment for soft tissue abscess. 4. Low-grade injury of the ATFL, PTFL, and CFL. 5. Small amount of fluid is noted about the flexor and peroneal tendons, which may be physiologic or very mild tenosynovitis. Narrative 06/04/2023 1:29 PM EDT EXAM MR right ankle without contrast-06/04/2023 12:19 pm HISTORY Evaluate for possible osteo. Positive probe to bone on exam. COMPARISON Right foot radiographs dating 06/03/2023. TECHNIQUE Multi-planar, multi-sequence MR imaging of the right ankle was performed without contrast. FINDINGS SOFT TISSUES: Deep soft tissue wound is seen at the plantar aspect of the heel. Diffuse soft tissue edema with subcutaneous fat stranding and skin thickening is seen. Evaluation for soft tissue abscess is limited due to lack of intravenous contrast. MUSCLES: Moderate muscle atrophy with intramuscular edema, likely representing underlying denervation. BONES/JOINTS: Faint bone marrow edema is seen at the plantar and posterior aspect of the calcaneus, suspicious for early osteomyelitis given adjacent deep soft tissue wound. Plantar calcaneal spur. Midfoot osteoarthritis. Subchondral cyst is seen in the medial cuneiform, favoring degenerative process. No acute fracture. No suspicious marrow replacing lesion. No significant joint effusion. OTHER: Syndesmotic ligament is intact. Thickened appearance of the ATFL, PTFL, and CFL with surrounding edema, consistent with low-grade injury. Deltoid ligament complex is intact. Thickened appearance of the spring ligament, which may represent sequelae of remote injury. Visualized tendons are intact. Small amount of fluid is noted about the flexor and peroneal tendons. Achilles tendon is intact. Mild effacement of normal fat signal is seen in the sinus tarsi. Lisfranc ligament is intact. No mass lesion is seen in the tarsal tunnel. Thickened appearance of the plantar fascia with intermediate signal abnormality, consistent with acute plantar fasciitis. Procedure Note Marina Chowdhury MD - 06/04/2023 EXAM MR right ankle without contrast-06/04/2023 12:19 pm HISTORY Evaluate for possible osteo. Positive probe to bone on exam. COMPARISON Right foot radiographs dating 06/03/2023. TECHNIQUE Multi-planar, multi-sequence MR imaging of the right ankle was performedwithout contrast. FINDINGS SOFT TISSUES: Deep soft tissue wound is seen at the plantar aspect of theheel. Diffuse soft tissue edema with subcutaneous fat stranding and skinthickening is seen. Evaluation for soft tissue abscess is limited due tolack of intravenous contrast. MUSCLES: Moderate muscle atrophy with intramuscular edema, likelyrepresenting underlying denervation. BONES/JOINTS: Faint bone marrow edema is seen at the plantar and posterioraspect of the calcaneus, suspicious for early osteomyelitis given adjacentdeep soft tissue wound. Plantar calcaneal spur. Midfoot osteoarthritis.Subchondral cyst is seen in the medial cuneiform, favoring degenerativeprocess. No acute fracture. No suspicious marrow replacing lesion. Nosignificant joint effusion. OTHER: Syndesmotic ligament is intact. Thickened appearance of the ATFL,PTFL, and CFL with surrounding edema, consistent with low-grade injury.Deltoid ligament complex is intact. Thickened appearance of the springligament, which may represent sequelae of remote injury. Visualizedtendons are intact. Small amount of fluid is noted about the flexor andperoneal tendons. Achilles tendon is intact. Mild effacement of normalfat signal is seen in the sinus tarsi. Lisfranc ligament is intact. Nomass lesion is seen in the tarsal tunnel. Thickened appearance of theplantar fascia with intermediate signal abnormality, consistent with acuteplantar fasciitis. IMPRESSION IMPRESSION 1. D soft tissue wound is seen at the plantar aspect of the heel. Faintbone marrow edema is seen in the subjacent bone involving the plantar andposterior aspect of the calcaneus, which is suspicious for earlyosteomyelitis. Reactive edema related to acute plantar fasciitis couldalso appears similar. 2. Acute plantar fasciitis. 3. Diffuse soft tissue edema and swelling, which may represent cellulitis,venous stasis, lymphedema, or dependent edema in appropriate clinicalsetting. Limited assessment for soft tissue abscess. 4. Low-grade injury of the ATFL, PTFL, and CFL. 5. Small amount of fluid is noted about the flexor and peroneal tendons,which may be physiologic or very mild tenosynovitis. Lynnette Rasmussen DPM RAD MRI-MRA * (ABNORMAL) GLUCOSE METER, POINT OF CARE (06/04/2023 11:28 AM EDT) Glucose Meter 128(H) 70 - 120 mg/dL 06/04/2023 11:45 AM EDT [facility] Blood Whole blood specimen / Unknown 06/04/2023 11:28 AM EDT 06/04/2023 11:45 AM EDT Vazquez Moura MD LAB POINT OF CARE TEST DOCKED DEVICE UNSOLICITED RESULTS [facility] [address] [place] [address] * GLUCOSE METER, POINT OF CARE (06/04/2023 7:39 AM EDT) Glucose Meter 111 70 - 120 mg/dL 06/04/2023 7:58 AM EDT [facility] Blood Whole blood specimen / Unknown 06/04/2023 7:39 AM EDT 06/04/2023 7:58 AM EDT Vazquez Moura MD LAB POINT OF CARE TEST DOCKED DEVICE UNSOLICITED RESULTS [facility] [address] [place] [address] * (ABNORMAL) CBC (06/04/2023 5:58 AM EDT) WBC 7.72 4.00 - 10.80 K/uL 06/04/2023 6:26 AM EDT LABORATORY GL[facility] RBC 2.86 3.85 - 5.15 M/uL 06/04/2023 6:26 AM EDT LABORATORY GL HGB 7.8(L) 12.0 - 15.3 g/dL 06/04/2023 6:26 AM EDT LABORATORY GL HCT 26.2(L) 36.0 - 45.2 % 06/04/2023 6:26 AM EDT LABORATORY GL MCV 91.6 81.5 - 97.5 fL 06/04/2023 6:26 AM EDT LABORATORY GL MCH 27.3 27.0 - 34.0 pg 06/04/2023 6:26 AM EDT LABORATORY GL MCHC 29.8 32.0 - 36.0 g/dL 06/04/2023 6:26 AM EDT LABORATORY GL RDW 18.7 11.5 - 15.5 % 06/04/2023 6:26 AM EDT LABORATORY GL PLT 267 140 - 400 K/uL 06/04/2023 6:26 AM EDT LABORATORY [facility] MPV 12.0 6.6 - 11.1 fL 06/04/2023 6:26 AM EDT LABORATORY GL nRBCs 0 <=0 /100 WBCs 06/04/2023 6:26 AM EDT LABORATORY GL Blood Venous blood specimen / Unknown Venipuncture / Unknown 06/04/2023 5:58 AM EDT 06/04/2023 6:21 AM EDT Ziggy Bowen MD LAB BLOOD ORDERABLES LABORATORY GL [address] [place] [address] * (ABNORMAL) PT INR (06/04/2023 5:58 AM EDT) Prothrombin Time 15.9(H) 11.6 - 15.2 seconds 06/04/2023 6:40 AM EDT LABORATORY [facility] INR 1.3(H) 0.8 - 1.2 06/04/2023 6:40 AM EDT LABORATORY [facility] Blood Venous blood specimen / Unknown Venipuncture / Unknown 06/04/2023 5:58 AM EDT 06/04/2023 6:21 AM EDT Narrative LABORATORY [facility] - 06/04/2023 6:40 AM EDT Warfarin Therapy INR: 2.0-3.0 conventional anticoagulation INR: 2.5-3.5 high intensity anticoagulation Ziggy Bowen MD LAB BLOOD ORDERABLES Performing Organization Address City/[facility]/ZIP Co de Phone Number LABORATORY [address] [phone] * MAGNESIUM (06/04/2023 5:57 AM EDT) Pathologist [facility] Magnesium 1.9 1.5 - 2.6 mg/dL 06/04/2023 6:46 AM EDT LABORATORY [facility] Blood Venous blood specimen / Unknown Venipuncture / Unknown 06/04/2023 5:57 AM EDT 06/04/2023 6:21 AM EDT Ziggy Bowen MD LAB BLOOD ORDERABLES Performing Organization Address City/[facility]/ZIP Co de Phone Number LABORATORY [address] [address] * (ABNORMAL) COMPREHENSIVE METABOLIC PANEL (06/04/2023 5:57 AM EDT) BUN 37(H) 6 - 20 mg/dL 06/04/2023 6:46 AM EDT LABORATORY [facility] Creatinine 2.1(H) 0.5 - 1.0 mg/dL 06/04/2023 6:46 AM EDT LABORATORY [facility] Estimated Glomerular Filtration Rate 26(L) >=60 mL/min 06/04/2023 6:46 AM EDT LABORATORY [facility] Comment:eGFR is calculated b ased on the CKD-EPI 2020 equation Sodium 139 135 - 146 mmol/L 06/04/2023 6:46 AM EDT LABORATORY [facility] Potassium 4.3 3.5 - 5.1 mmol/L 06/04/2023 6:46 AM EDT LABORATORY [facility] Chloride 106 98 - 107 mmol/L 06/04/2023 6:46 AM EDT LABORATORY [facility] CO2 21(L) 22 - 32 mmol/L 06/04/2023 6:46 AM EDT LAB[facility]ATORY [facility] Anion Gap 12 7 - 15 mmol/L 06/04/2023 6:46 AM EDT LABORATORY [facility] Glucose 130(H) 70 - 120 mg/dL 06/04/2023 6:46 AM EDT LAB[facility]ATORY [facility] Albumin 2.2(L) 3.8 - 5.0 g/dL 06/04/2023 6:46 AM EDT LABORATORY GL[facility] AST 53(H) 10 - 35 U/L 06/04/2023 6:46 AM EDT LABORATORY [facility] Alkaline Phosphatase 408(H) 35 - 130 U/L 06/04/2023 6:46 AM EDT LABORATORY [facility] Bilirubin, Total 0.2 <=1.2 mg/dL 06/04/2023 6:46 AM EDT LAB[facility]ATORY [facility] Calcium 8.7 8.4 - 10.2 mg/dL 06/04/2023 6:46 AM EDT LABORATORY [facility] Protein 6.3 6.0 - 8.3 g/dL 06/04/2023 6:46 AM EDT LABORATORY [facility] ALT 20 10 - 35 U/L 06/04/2023 6:46 AM EDT LAB[facility]ATORY [facility] Blood Venous blood specimen / Unknown Venipuncture / Unknown 06/04/2023 5:57 AM EDT 06/04/2023 6:21 AM EDT Ziggy Bowen MD LAB BLOOD ORDERABLES LABORATORY [facility] [address] [place] [address] * GLUCOSE METER, POINT OF CARE (06/03/2023 9:43 PM EDT) [facility] Glucose Meter 104 70 - 120 mg/dL 06/03/2023 9:53 PM EDT [facility] Blood Whole blood specimen / Unknown 06/03/2023 9:43 PM EDT 06/03/2023 9:53 PM EDT Vazquez Moura MD LAB POINT OF CARE TEST DOCKED DEVICE UNSOLICITED RESULTS Performing Organization Address [facility] Co de Phone Number [facility] [address] [place] [address] * GLUCOSE METER, POINT OF CARE (06/03/2023 5:00 PM EDT) Glucose Meter 111 70 - 120 mg/dL 06/03/2023 5:09 PM EDT [facility] Blood Whole blood specimen / Unknown 06/03/2023 5:00 PM EDT 06/03/2023 5:09 PM EDT Vazquez Moura MD LAB POINT OF CARE TEST DOCKED DEVICE UNSOLICITED RESULTS Performing Organization Address [facility] Co de Phone Number [facility] [address] [place] [address] * GLUCOSE METER, POINT OF CARE (06/03/2023 11:46 AM EDT) Glucose Meter 98 70 - 120 mg/dL 06/03/2023 11:54 AM EDT [facility] Blood Whole blood specimen / Unknown 06/03/2023 11:46 AM EDT 06/03/2023 11:54 AM EDT Vazquez Moura MD LAB POINT OF CARE TEST DOCKED DEVICE UNSOLICITED RESULTS Performing Organization Address [facility] de Phone Number [facility] [address] [place] [address] * (ABNORMAL) TROPONIN T, HIGH SENSITIVITY (06/03/2023 8:37 AM EDT) Troponin T, High Sensitivity 113(HH) <=14 ng/L 06/03/2023 9:28 AM EDT LABORATORY [facility] Blood Venous blood specimen / Unknown Venipuncture / Unknown 06/03/2023 8:37 AM EDT 06/03/2023 8:59 AM EDT Ziggy Bowen MD LAB BLOOD ORDERABLES Performing Organization Address [facility] Co de Phone Number LABORATORY [facility] [address] [place], [place] [phone] * GLUCOSE METER, POINT OF CARE (06/03/2023 7:50 AM EDT) [facility] Glucose Meter 105 70 - 120 mg/dL 06/03/2023 8:43 AM EDT [facility] Blood Whole blood specimen / Unknown 06/03/2023 7:50 AM EDT 06/03/2023 8:43 AM EDT Vazquez Moura MD LAB POINT OF CARE TEST DOCKED DEVICE UNSOLICITED RESULTS Performing Organization Address [facility] Co de Phone Number [facility] [address] [place] [phone] * EKG (06/03/2023 5:14 AM EDT) 06/03/2023 5:14 AM EDT Narrative Procedure Note Janusz Harkins DO - 06/03/2023 5:14 AM EDT REASON FOR STUDY: [place] CONCLUSIONS: Probable junctional rhythm Left axis deviation Right bundle branch block Anterolateral infarct , age undetermined Abnormal ECG When compared with ECG of 03-Jun-2023 03:43, No significant change was found Ventricular Rate: 60 QRS Duration: 128 QT/QTc: 444/444 ms P-R-T [place]: 0 : -46 : -1 degrees Ziggy Bowen MD EKG Performing Organization Address City/[facility] Co de Phone Number [facility] * HEPATITIS C RNA ADD ON (06/03/2023 4:57 AM EDT) Blood Venous blood specimen / Unknown Venipuncture / Unknown 06/03/2023 4:57 AM EDT 06/03/2023 5:19 AM EDT Ziggy Bowen MD LAB BLOOD ORDERABLES Performing Organization Address [facility] de Phone Number LABORATORY [facility] [address] [place] [address] * HEPATITIS C ANTIBODY (06/03/2023 4:57 AM EDT) Pathologist [facility] Hepatitis C Antibody Negative Negative 06/03/2023 1:10 PM EDT LABORATORY [facility] Comment:Further HCV quantita tive testing not performed per protocol. Blood Venous blood specimen / Unknown Venipuncture / Unknown 06/03/2023 4:57 AM EDT 06/03/2023 5:19 AM EDT Ziggy Bowen MD LAB BLOOD ORDERABLES Performing Organization Address [facility] de Phone Number LABORATORY [facility] [address] [place] [address] * MAGNESIUM (06/03/2023 4:52 AM EDT) Pathologist [facility] Magnesium 2.0 1.5 - 2.6 mg/dL 06/03/2023 5:38 AM EDT LABORATORY [facility] Blood Venous blood specimen / Unknown Venipuncture / Unknown 06/03/2023 4:52 AM EDT 06/03/2023 5:20 AM EDT Ziggy Bowen MD LAB BLOOD ORDERABLES Performing Organization Address City/[facility] de Phone Number LABORATORY [address] [address] * EXTRA GREEN TOP WITH GEL (06/03/2023 4:52 AM EDT) Blood Venous blood specimen / Unknown Venipuncture / Unknown 06/03/2023 4:52 AM EDT 06/03/2023 5:20 AM EDT Indra Knag MD LAB BLOOD ORDERABLES Performing Organization Address [facility] Co de Phone Number LABORATORY [address] [address] * EXTRA LIGHT BLUE TOP (06/03/2023 4:52 AM EDT) Blood Venous blood specimen / Unknown Venipuncture / Unknown 06/03/2023 4:52 AM EDT 06/03/2023 5:20 AM EDT Min Min Pearl THAKUR LAB BLOOD ORDERABLES Performing Organization Address City/[facility]/ZIP Co de Phone Number LABORATORY [address] [address] * EXTRA LAVENDER TOP (06/03/2023 4:52 AM EDT) Blood Venous blood specimen / Unknown Venipuncture / Unknown 06/03/2023 4:52 AM EDT 06/03/2023 5:20 AM EDT Min Min Pearl THAKUR LAB BLOOD ORDERABLES Performing Organization Address City/[facility] Co de Phone Number LABORATORY [address] [phone] * MRSA SCREEN, PCR (06/03/2023 4:25 AM EDT) MRSA PCR Result Negative Negative 2:21 PM EDT LABORATORY [facility] Comment:No Methicillin resis tant Staphylococcus aureus detected by PCR (amplified probe). Upper Respiratory Swab of internal nose / Unknown Non-blood Collection / Unknown 06/03/2023 4:25 AM EDT 06/03/2023 4:35 AM EDT Ziggy Bowen MD LAB MICRO - GENERAL ORDERABLES LABORATORY [facility] [address] [place] [address] * GLUCOSE METER, POINT OF CARE (06/03/2023 4:19 AM EDT) Glucose Meter 110 70 - 120 mg/dL 06/03/2023 6:14 AM EDT [facility] Blood Whole blood specimen / Unknown 06/03/2023 4:19 AM EDT 06/03/2023 6:14 AM EDT Min Min Pearl THAKUR LAB POINT OF CARE TE ST DOCKED DEVICE UNSOLICITED RESULTS [facility] [address] [place] [address] * XR FOOT 3 OR MORE VIEWS (06/03/2023 4:07 AM EDT) Anatomical Region Laterality Modality Foot, Lower Extremity Digital Ra diography 06/03/2023 3:44 AM EDT Impressions 06/03/2023 4:53 AM EDT IMPRESSION: Soft tissue swelling. Heel ulcer. No evidence of osteomyelitis. THIS DOCUMENT HAS BEEN ELECTRONICALLY SIGNED BY GT BROWN MD Narrative 06/03/2023 4:53 AM EDT PROCEDURE INFORMATION: Exam: XR Right Foot Exam date and time: 06/03/2023 3:44 AM Age: 63 years old Clinical indication: Other: Open wound to base of right foot, images performed with bandage on foot; Additional info: Large open wound at the base of foot TECHNIQUE: Imaging protocol: Radiologic exam of the right foot. Views: 3 or more views. COMPARISON: DX XR KNEE 4 OR MORE VIEWS 06/01/2023 11:14 AM FINDINGS: Bones/joints: Small plantar calcaneal spur. No bone erosion or periosteal reaction. No fracture. Joint spaces are well-maintained. Soft tissues: Diffuse soft tissue swelling. Vascular calcification in soft tissues. Plantar heel ulcer. Procedure Note Gt Brown MD - 06/03/2023 PROCEDURE INFORMATION: Exam: XR Right Foot Exam date and time: 06/03/2023 3:44 AM Age: 63 years old Clinical indication: Other: Open wound to base of right foot, imagesperformed with bandage on foot; Additional info: Large open wound at the base offoot TECHNIQUE: Imaging protocol: Radiologic exam of the right foot. Views: 3 or more views. COMPARISON: DX XR KNEE 4 OR MORE VIEWS 06/01/2023 11:14 AM FINDINGS: Bones/joints: Small plantar calcaneal spur. No bone erosion or periosteal reaction. No fracture. Joint spaces are well-maintained. Soft tissues: Diffuse soft tissue swelling. Vascular calcification in soft tissues. Plantar heel ulcer. IMPRESSION IMPRESSION: Soft tissue swelling. Heel ulcer. No evidence of osteomyelitis. THIS DOCUMENT HAS BEEN ELECTRONICALLY SIGNED BY GT BROWN MD Ziggy Bowen MD RADIOLOGY (RAD GENER AL) * (ABNORMAL) BNP, NT-PRO (06/03/2023 3:53 AM EDT) BNP, NT-Pro 4,303(H) <300 pg/mL 06/03/2023 4:56 AM EDT LABORATORY [facility] Blood Venous blood specimen / Unknown Venipuncture / Unknown 06/03/2023 3:53 AM EDT 06/03/2023 3:57 AM EDT Narrative LABORATORY [facility] - 06/03/2023 4:56 AM EDT Exclude Heart Failure: <300 pg/mL Diagnose Heart Failure: Age <50 yr: >450 pg/mL 50-75 yr: >900 pg/mL >75 yr: >1800 pg/mL GFR is 30-59 mL/min: >1200 pg/mL or Age-adjusted values GFR <30 mL/min: do not use, not reliable Prognostic threshold: 1000 pg/mL Ziggy Bowen MD LAB BLOOD ORDERABLES Performing Organization Address City/[facility]/ZIP Co de Phone Number LABORATORY [address] [address] * (ABNORMAL) TROPONIN T, HIGH SENSITIVITY (06/03/2023 3:53 AM EDT) Troponin T, High Sensitivity 110(HH) <=14 ng/L 06/03/2023 4:32 AM EDT LABORATORY [facility] Blood Venous blood specimen / Unknown Venipuncture / Unknown 06/03/2023 3:53 AM EDT 06/03/2023 3:57 AM EDT Ziggy Bowen MD LAB BLOOD ORDERABLES Performing Organization Address City/[facility]/ZIP Co de Phone Number LABORATORY [address] [phone] * (ABNORMAL) VITAMIN B12 (06/03/2023 3:53 AM EDT) Vitamin B12 1,643(H) 232 - 1,245 pg/mL 06/03/2023 2:50 PM EDT LABORATORY [facility] Blood Venous blood specimen / Unknown Venipuncture / Unknown 06/03/2023 3:53 AM EDT 06/03/2023 3:57 AM EDT Ziggy Bowen MD LAB BLOOD ORDERABLES Performing Organization Address [facility] de Phone Number LABORATORY [address] [address] * (ABNORMAL) IRON SCREEN, INCLUDING TIBC (06/03/2023 3:53 AM EDT) Iron 25(L) 33 - 151 ug/dL 06/03/2023 1:01 PM EDT LABORATORY [facility] Iron Binding Capacity 194(L) 250 - 425 ug/dL 06/03/2023 1:01 PM EDT LABORATORY C Transferrin Saturation Percent 13(L) 15 - 55 % 06/03/2023 1:01 PM EDT LABORATORY [facility] Blood Venous blood specimen / Unknown Venipuncture / Unknown 06/03/2023 3:53 AM EDT 06/03/2023 3:57 AM EDT Ziggy Bowen MD LAB BLOOD ORDERABLES Performing Organization Address [facility] Co de Phone Number LABORATORY [place] [address] [place] [address] * EKG (06/03/2023 3:43 AM EDT) 06/03/2023 3:43 AM EDT Narrative Procedure Note Janusz Harkins DO - 06/03/2023 3:43 AM EDT REASON FOR STUDY: REPEAT CONCLUSIONS: Possible Junctional rhythm (possible low amplitude p waves) Left axis deviation Right bundle branch block Inferior infarct , age undetermined Abnormal ECG No previous ECGs available Warning: interpretation of this ECG, although attempted, may be adverselyaffected by data quality Suggest repeat tracing with better attention to quality of tracing Ventricular Rate: 62 Atrial Rate: 64 QRS Duration: 128 QT/QTc: 456/462 ms P-R-T [place]: 0 : -48 : 10 degrees Ziggy Bowen MD EKG [facility] * RESPIRATORY PATHOGEN PANEL, PCR (06/03/2023 2:33 AM EDT) [facility] Adenovirus by PCR Negative Negative 024 3:32 AM EDT LABORATORY [facility] Coronavirus 229E by PCR Negative Negative 06/03/2023 3:32 AM EDT LABORATORY [facility] Coronavirus HKU1 by PCR Negative Negative 06/03/2023 3:32 AM EDT LABORATORY [facility] Coronavirus NL63 by PCR Negative Negative 06/03/2023 3:32 AM EDT LABORATORY [facility] Coronavirus OC43 by PCR Negative Negative 06/03/2023 3:32 AM EDT LABORATORY [facility] Coronavirus SARS-CoV-2 by PCR Negative Negative 06/03/2023 3:32 AM EDT LABORATORY [facility] Human Metapneumovirus by PCR Negative Negative 06/03/2023 3:32 AM EDT LABORATORY [facility] Rhinovirus/Enterovi cecilia by PCR Negative Negative 06/03/2023 3:32 AM EDT LABORATORY [facility] Influenza A Virus by PCR Negative Negative 06/03/2023 3:32 AM EDT LABORATORY [facility] Influenza B Virus by PCR Negative Negative 06/03/2023 3:32 AM EDT LABORATORY [facility] Parainfluenza Virus 1 by PCR Negative Negative 06/03/2023 3:32 AM EDT LABORATORY [facility] Parainfluenza Virus 2 by PCR Negative Negative 06/03/2023 3:32 AM EDT LABORATORY [facility] Parainfluenza Virus 3 by PCR Negative Negative 06/03/2023 3:32 AM EDT LABORATORY [facility] Parainfluenza Virus 4 by PCR Negative Negative 06/03/2023 3:32 AM EDT LABORATORY [facility] Respiratory Syncytial Virus by PCR Negative Negative 06/03/2023 3:32 AM EDT LABORATORY [facility] Bordetella pertussis by PCR Negative Negative 06/03/2023 3:32 AM EDT LABORATORY [facility] Chlamydia pneumoniae by PCR Negative Negative 06/03/2023 3:32 AM EDT LABORATORY [facility] Mycoplasma pneumoniae by PCR Negative Negative 06/03/2023 3:32 AM EDT LABORATORY [facility] Bordetella parapertussis by PCR Negative Negative 06/03/2023 3:32 AM EDT LABORATORY [facility] Comment: The primers that detect Rhinovirus may cross react with some Enterorviruses. The validation of bronchial specimens, tracheal aspirates, and throats for this assay was developed and performance characteristics determined by [employer]. The validation of alternate specimen types has not been cleared or approved by the U.S. Food and Drug Administration (FDA). It has been determined that such clearance or approval is not necessary. Upper Respiratory Mid-turbinate nasal swab / Unknown Non-blood Collection / Unknown 06/03/2023 2:33 AM EDT 06/03/2023 2:39 AM EDT Eric Seaman MD LAB MICRO - GENERAL ORDERABLES Performing Organization Address City/[facility]/ZIP Co de Phone Number LABORATORY [address] [address] * CULTURE, URINE, QUANTITATIVE (06/02/2023 10:52 PM EDT) Culture Growth Multiple genevieve suggests contamination or colonization 06/04/2023 9:47 AM EDT LABORATORY [facility] Urine Urine specimen obtained by clean catch procedure / Unknown Non-blood Collection / Unknown 06/02/2023 10:52 PM EDT 06/02/2023 10:56 PM EDT Alicja Mandel MD LAB MICRO - GENER AL ORDERABLES LABORATORY [address] [address] * (ABNORMAL) URINALYSIS, REFLEX TO CULTURE (06/02/2023 10:52 PM EDT) Color, Urine Yellow Light Yellow, Yellow, Dark Yellow 06/02/2023 11:05 PM EDT LABORATORY [facility] Clarity, Urine Clear Clear 06/02/2023 11:05 PM EDT LABORATORY [facility] Glucose, Urine 250(A) Negative mg/dL 06/02/2023 11:05 PM EDT LABORATORY [facility] Bilirubin, Urine Negative Negative 06/02/2023 11:05 PM EDT LABORATORY [facility] Ketone, Urine Negative Negative mg/dL 06/02/2023 11:05 PM EDT LABORATORY [facility] Specific [place], Urine 1.016 1.003 - 1.030 06/02/2023 11:05 PM EDT LABORATORY [facility] Blood, Urine Large(A) Negative 06/02/2023 11:05 PM EDT LABORATORY [facility] pH, Urine 5.5 5.0 - 7.5 Units 06/02/2023 11:05 PM EDT LABORATORY [facility] Protein, Urine >=300(A) Negative mg/dL 06/02/2023 11:05 PM EDT LABORATORY [facility] Urobilinogen, Urine 0.2 0.2, 1.0 mg/dL 06/02/2023 11:05 PM EDT LABORATORY [facility] Nitrite, Urine Negative Negative 06/02/2023 11:05 PM EDT LABORATORY [facility] Esterase, Urine Small(A) Negative 06/02/2023 11:05 PM EDT LABORATORY [facility] RBC, Urine 30-49(A) 0 - 2 /HPF 06/02/2023 11:05 PM EDT LABORATORY [facility] WBC, Urine 20-29(A) 0 - 2 /HPF 06/02/2023 11:05 PM EDT LABORATORY [facility] Bacteria, Urine >200(A) 0 - 25 /HPF 06/02/2023 11:05 PM EDT LABORATORY [facility] Squamous Epithelial Cells, Urine Many(A) None /HPF 06/02/2023 11:05 PM EDT LABORATORY [facility] Yeast, Urine Present(A) None /HPF 06/02/2023 11:05 PM EDT LABORATORY [facility] Culture, Urine 06/02/2023 11:05 PM EDT LABORATORY [facility] Comment:Quantitative urine c ulture to be performed Urine Urine specimen obtained by clean catch procedure / Unknown Non-blood Collection / Unknown 06/02/2023 10:52 PM EDT 06/02/2023 10:56 PM EDT Alicja Mandel MD LAB URINE ORDERAB LES LABORATORY [facility] [address] [place] [address] * URINALYSIS, REFLEX TO CULTURE (CUP ONLY) (06/02/2023 10:52 PM EDT) Urinalysis, Reflex to Culture Specimen Specimen collected and received 06/03/2023 12:01 AM EDT LABORATORY [facility] Urine Urine specimen obtained by clean catch procedure / Unknown Non-blood Collection / Unknown 06/02/2023 10:52 PM EDT 06/02/2023 10:56 PM EDT Alicja Mandel MD LAB URINE ORDERAB LES Performing Organization Address City/[facility] Co de Phone Number LABORATORY [facility] [address] [place] [address] * CT ABD/PELVIS WO IV/ORAL CONTRAST (06/02/2023 8:33 PM EDT) Anatomical Region Laterality Modality Body, Abdomen, Pelvis Computed T omography 06/02/2023 8:19 PM EDT Impressions 06/02/2023 8:49 PM EDT IMPRESSION: 1. Anasarca and CHF. 2. Moderate bilateral pleural effusions right greater than left. 3. Moderate dependent compressive atelectasis right greater than left favored over pneumonia. 4. Moderate pulmonary edema. 5. Distal colonic diverticulosis without diverticulitis. 6. Trace abdominal free fluid. 7. Suspected early cirrhosis, could be cardiogenic. THIS DOCUMENT HAS BEEN ELECTRONICALLY SIGNED BY TEMITOPE EDWARDS MD Narrative 06/02/2023 8:49 PM EDT PROCEDURE INFORMATION: Exam: CT Abdomen And Pelvis Without Contrast Exam date and time: 06/02/2023 20:19 Age: 63 years old Clinical indication: Abdominal pain; Additional info: Left lower abdominal pain. No bowel movement x7 days TECHNIQUE: Imaging protocol: Computed tomography of the abdomen and pelvis without contrast. Radiation optimization: All CT scans at this facility use at least one of these dose optimization techniques: automated exposure control; mA and/or kV adjustment per patient size (includes targeted exams where dose is matched to clinical indication); or iterative reconstruction. COMPARISON: DX XR HIP UNILAT 2-3 VIEWS INCLUDING AP PELVIS 06/01/2023 11:10 FINDINGS: Lungs: Moderate dependent compressive atelectasis right greater than left favored over pneumonia. Moderate pulmonary edema. Interstitial and alveolar component. Pleural spaces: Moderate bilateral pleural effusions right greater than left. Heart: Moderate cardiomegaly. Liver: Micronodular liver is suspected on these noncontrast images. No hepatic masses on noncontrast imaging. Gallbladder and bile ducts: No calcified stones. No ductal dilation. Pancreas: No gross pathology in the pancreas on noncontrast imaging. Spleen: No splenomegaly or focal lesions. Adrenal glands: No mass. Kidneys and ureters: No nephrolithiasis or collecting system obstruction. Stomach and bowel: Moderate colonic stool burden. Distal colonic diverticulosis without diverticulitis. No colitis. No gross acute pathology in small bowel on noncontrast imaging. No obstruction. Appendix: No evidence of appendicitis. Intraperitoneal space: Trace abdominal free fluid. No abscess or free air. Vasculature: No abdominal aortic aneurysm. Lymph nodes: Mildly prominent portacaval lymph nodes, favor due to hepatomegaly and or cirrhosis. Retroperitoneal lymph nodes are also mildly prominent. Urinary bladder: Bladder wall upper limits of normal. Reproductive: Unremarkable as visualized. Bones/joints: No acute fracture or subluxation. Soft tissues: Severe generalized body wall edema. Procedure Note Temitope Edwards MD - 06/02/2023 PROCEDURE INFORMATION: Exam: CT Abdomen And Pelvis Without Contrast Exam date and time: 06/02/2023 20:19 Age: 63 years old Clinical indication: Abdominal pain; Additional info: Left lower abdominal pain. No bowel movement x7 days TECHNIQUE: Imaging protocol: Computed tomography of the abdomen and pelvis without contrast. Radiation optimization: All CT scans at this facility use at least one ofthese dose optimization techniques: automated exposure control; mA and/or kV adjustment per patient size (includes targeted exams where dose is matchedto clinical indication); or iterative reconstruction. COMPARISON: DX XR HIP UNILAT 2-3 VIEWS INCLUDING AP PELVIS 06/01/2023 11:10 FINDINGS: Lungs: Moderate dependent compressive atelectasis right greater than left favored over pneumonia. Moderate pulmonary edema. Interstitial andalveolar component. Pleural spaces: Moderate bilateral pleural effusions right greater thanleft. Heart: Moderate cardiomegaly. Liver: Micronodular liver is suspected on these noncontrast images. Nohepatic masses on noncontrast imaging. Gallbladder and bile ducts: No calcified stones. No ductal dilation. Pancreas: No gross pathology in the pancreas on noncontrast imaging. Spleen: No splenomegaly or focal lesions. Adrenal glands: No mass. Kidneys and ureters: No nephrolithiasis or collecting system obstruction. Stomach and bowel: Moderate colonic stool burden. Distal colonicdiverticulosis without diverticulitis. No colitis. No gross acute pathology in smallbowel on noncontrast imaging. No obstruction. Appendix: No evidence of appendicitis. Intraperitoneal space: Trace abdominal free fluid. No abscess or free air. Vasculature: No abdominal aortic aneurysm. Lymph nodes: Mildly prominent portacaval lymph nodes, favor due tohepatomegaly and or cirrhosis. Retroperitoneal lymph nodes are also mildly prominent. Urinary bladder: Bladder wall upper limits of normal. Reproductive: Unremarkable as visualized. Bones/joints: No acute fracture or subluxation. Soft tissues: Severe generalized body wall edema. IMPRESSION IMPRESSION: 1. Anasarca and CHF. 2. Moderate bilateral pleural effusions right greater than left. 3. Moderate dependent compressive atelectasis right greater than leftfavored over pneumonia. 4. Moderate pulmonary edema. 5. Distal colonic diverticulosis without diverticulitis. 6. Trace abdominal free fluid. 7. Suspected early cirrhosis, could be cardiogenic. THIS DOCUMENT HAS BEEN ELECTRONICALLY SIGNED BY TEMITOPE EDWARDS MD Alicja Mandel MD RAD CT * T4, FREE (06/02/2023 6:43 PM EDT) T4, Free 1.2 0.9 - 1.7 ng/dL 06/03/2023 4:29 AM EDT LABORATORY [facility] Blood Venous blood specimen / Unknown Venipuncture / Unknown 06/02/2023 6:43 PM EDT 06/02/2023 6:47 PM EDT Ziggy Bowen MD LAB BLOOD ORDERABLES LABORATORY [address] [address] * (ABNORMAL) TSH WITH FREE T4 IF INDICATED (06/02/2023 6:43 PM EDT) TSH 7.28(H) 0.27 - 4.20 uIU/mL 06/03/2023 3:13 AM EDT LABORATORY [facility] Blood Venous blood specimen / Unknown Venipuncture / Unknown 06/02/2023 6:43 PM EDT 06/02/2023 6:47 PM EDT Ziggy Bowen MD LAB BLOOD ORDERABLES LABORATORY [address] [id number] * (ABNORMAL) HEMOGLOBIN A1C (06/02/2023 6:43 PM EDT) Hemoglobin A1C 6.9(H) 4.0 - 5.6 % 06/03/2023 1:05 PM EDT LABORATORY [facility] Comment:The use of HbA1c to monitor glycemic status is based on normal hemoglobin and HbA composition. This test should not be used in patients with abnormal hemoglobin that affects the half life of the red blood cell or the in vivo glycation rates. Estimated Average Glucose 151(H) <126 mg/dL 06/03/2023 1:05 PM EDT LABORATORY [facility] Blood Venous blood specimen / Unknown Venipuncture / Unknown 06/02/2023 6:43 PM EDT 06/02/2023 6:47 PM EDT Ziggy Bowen MD LAB BLOOD ORDERABLES LABORATORY [facility] [address] [place] [address] * (ABNORMAL) TROPONIN T, HIGH SENSITIVITY (06/02/2023 6:43 PM EDT) Troponin T, High Sensitivity 109(HH) <=14 ng/L 06/03/2023 3:13 AM EDT LABORATORY [facility] Blood Venous blood specimen / Unknown Venipuncture / Unknown 06/02/2023 6:43 PM EDT 06/02/2023 6:47 PM EDT Eric Seaman MD LAB BLOOD ORDERABLES Performing Organization Address [facility]/ZIP Co de Phone Number LABORATORY [address] [address] * (ABNORMAL) BNP, NT-PRO (06/02/2023 6:43 PM EDT) BNP, NT-Pro 3,885(H) <300 pg/mL 06/03/2023 12:20 AM EDT LABORATORY [facility] Blood Venous blood specimen / Unknown Venipuncture / Unknown 06/02/2023 6:43 PM EDT 06/02/2023 6:47 PM EDT Narrative LABORATORY [facility] - 06/03/2023 12:20 AM EDT Exclude Heart Failure: <300 pg/mL Diagnose Heart Failure: Age <50 yr: >450 pg/mL 50-75 yr: >900 pg/mL >75 yr: >1800 pg/mL GFR is 30-59 mL/min: >1200 pg/mL or Age-adjusted values GFR <30 mL/min: do not use, not reliable Prognostic threshold: 1000 pg/mL Eric Seaman MD LAB BLOOD ORDERABLES Performing Organization Address [facility] Co de Phone Number LABORATORY [address] [address] * DIFFERENTIAL, AUTOMATED (06/02/2023 6:43 PM EDT) Pathologist [facility] WBC 9.81 4.00 - 10.80 K/uL 06/02/2023 6:55 PM EDT LABORATORY [facility] Neutrophils % 69.0 40.0 - 75.0 % 06/02/2023 6:55 PM EDT LABORATORY [facility] Lymphocytes % 22.0 18.0 - 42.0 % 06/02/2023 6:55 PM EDT LABORATORY [facility] Monocytes % 6.8 1.0 - 11.0 % 06/02/2023 6:55 PM EDT LABORATORY [facility] Eosinophils % 1.6 0.0 - 6.0 % 06/02/2023 6:55 PM EDT LABORATORY GL Basophils % 0.4 0.0 - 2.0 % 06/02/2023 6:55 PM EDT LABORATORY GL Immature Granulocytes % 0.2 0.0 - 2.0 % 06/02/2023 6:55 PM EDT LABORATORY [facility] Absolute Neutrophils 6.76 1.80 - 7.70 K/uL 06/02/2023 6:55 PM EDT LABORATORY [facility] Absolute Lymphocytes 2.16 1.00 - 4.80 K/ul 06/02/2023 6:55 PM EDT LABORATORY [facility] Absolute Monocytes 0.67 0.00 - 1.10 K/uL 06/02/2023 6:55 PM EDT LABORATORY [facility] Absolute Eosinophils 0.16 0.00 - 0.70 K/uL 06/02/2023 6:55 PM EDT LABORATORY [facility] Absolute Basophils 0.04 0.00 - 0.20 K/uL 06/02/2023 6:55 PM EDT LABORATORY [facility] Absolute Immature Granulocytes 0.02 0.00 - 0.20 K/uL 06/02/2023 6:55 PM EDT LABORATORY [facility] Blood Venous blood specimen / Unknown Venipuncture / Unknown 06/02/2023 6:43 PM EDT 06/02/2023 6:47 PM EDT Alicja Mandel MD LAB BLOOD ORDERAB LES LABORATORY [address] [address] * (ABNORMAL) CBC (06/02/2023 6:43 PM EDT) [facility] WBC 9.81 4.00 - 10.80 K/uL 06/02/2023 6:55 PM EDT LABORATORY GL RBC 3.36 3.85 - 5.15 M/uL 06/02/2023 6:55 PM EDT LABORATORY [facility] HGB 9.3(L) 12.0 - 15.3 g/dL 06/02/2023 6:55 PM EDT LABORATORY [facility] HCT 30.8(L) 36.0 - 45.2 % 06/02/2023 6:55 PM EDT LABORATORY [facility] MCV 91.7 81.5 - 97.5 fL 06/02/2023 6:55 PM EDT LABORATORY [facility] MCH 27.7 27.0 - 34.0 pg 06/02/2023 6:55 PM EDT LABORATORY [facility] MCHC 30.2 32.0 - 36.0 g/dL 06/02/2023 6:55 PM EDT LABORATORY [facility] RDW 19.3 11.5 - 15.5 % 06/02/2023 6:55 PM EDT LABORATORY [facility] PLT 294 140 - 400 K/uL 06/02/2023 6:55 PM EDT LABORATORY [facility] MPV 12.2 6.6 - 11.1 fL 06/02/2023 6:55 PM EDT LABORATORY [facility] nRBCs 0 <=0 /100 WBCs 06/02/2023 6:55 PM EDT LABORATORY [facility] Blood Venous blood specimen / Unknown Venipuncture / Unknown 06/02/2023 6:43 PM EDT 06/02/2023 6:47 PM EDT Alicja Mandel MD LAB BLOOD ORDERAB LES LABORATORY [facility] [address] [place] [address] * (ABNORMAL) BASIC METABOLIC PANEL (06/02/2023 6:43 PM EDT) BUN 39(H) 6 - 20 mg/dL 06/02/2023 7:07 PM EDT LABORATORY GL Creatinine 2.2(H) 0.5 - 1.0 mg/dL 06/02/2023 7:07 PM EDT LABORATORY GL Estimated Glomerular Filtration Rate 25(L) >=60 mL/min 06/02/2023 7:07 PM EDT LABORATORY GL Comment:eGFR is calculated b ased on the CKD-EPI 2020 equation Sodium 134(L) 135 - 146 mmol/L 06/02/2023 7:07 PM EDT LABORATORY [facility] Potassium 4.9 3.5 - 5.1 mmol/L 06/02/2023 7:07 PM EDT LABORATORY [facility] Chloride 102 98 - 107 mmol/L 06/02/2023 7:07 PM EDT LABORATORY [facility] CO2 19(L) 22 - 32 mmol/L 06/02/2023 7:07 PM EDT LABORATORY [facility] Anion Gap 13 7 - 15 mmol/L 06/02/2023 7:07 PM EDT LABORATORY [facility] Glucose 142(H) 70 - 120 mg/dL 06/02/2023 7:07 PM EDT LABORATORY [facility] Calcium 9.1 8.4 - 10.2 mg/dL 06/02/2023 7:07 PM EDT LABORATORY [facility] Blood Venous blood specimen / Unknown Venipuncture / Unknown 06/02/2023 6:43 PM EDT 06/02/2023 6:47 PM EDT Alicja Mandel MD LAB BLOOD ORDERAB LES LABORATORY [facility] [address] [place] [address] documented in this encounter Visit Diagnoses Diagnosis Acute on chronic congestive heart failure (HCC)- Primary Congestive heart failure, unspecified Hypervolemia, unspecified hypervolemia type Acute on chronic heart failure, unspecified heart failure type (HCC) SOB (shortness of breath) Shortness of breath Heart failure (HCC) Heart failure, unspecified Chest pain Chest pain, unspecified Osteomyelitis (HCC) Unspecified osteomyelitis, site unspecified Suspected sleep apnea Mitral valve insufficiency Mitral valve disorders Mild tricuspid regurgitation Diseases of tricuspid valve Moderate pulmonary hypertension (HCC) AV junctional rhythm Other specified cardiac dysrhythmias Chronic kidney disease, stage IV (severe) (HCC) Chronic kidney disease, Stage IV (severe) Class 3 severe obesity in adult (HCC) Hypertension Unspecified essential hypertension Mild mitral stenosis Mitral stenosis Moderate tricuspid regurgitation Diseases of tricuspid valve documented in this encounter Administered Medications Inactive Administered Medications - up to 3 most recent administrations Medication Order MAR Action Action Date Dose Rate Site Acetaminophen (Tylenol) tab 650 mg 650 mg, Oral, Q6H PRN Pain, Mild, Fever >38C(100.5F), Starting on 06/03/23 at 0250, Until 06/13/23 at 1914, Maximum of 4 grams (4000 mg) per day. Given 06/12/2023 10:04 PM EDT 650 mg Given 06/05/2023 9:44 PM EDT 650 mg albuterol (VENTOLIN HFA/PROVENTIL HFA) inhaler 2 Puff, Inhalation, ONCE, On 06/02/23 at 2000, For 1 dose, Shake can for 10 seconds before each puff SEND INHALER WITH PATIENT! WASTE INFO ( IF NOT SENT HOME WITH PATIENT) : Return unused medication to pharmacy in zip lock bag for disposal into black container labeled SP. Given 06/02/2023 7:34 PM EDT 2 Puffs albuterol (VENTOLIN HFA/PROVENTIL HFA) inhaler 2 Puff, Inhalation, Q6H PRN Dyspnea, Starting on Sun06/06/23 at 2336, Until Sun06/13/23 at 1914, (RT) SEND INHALER WITH PATIENT! WASTE INFO ( IF NOT SENT HOME WITH PATIENT) : Return unused medication to pharmacy in zip lock bag for disposal into black container labeled SP. Given 06/10/2023 2:32 PM EDT 2 Puffs Given 06/08/2023 10:13 PM EDT 2 Puffs Given 06/07/2023 11:02 PM EDT 2 Puffs amitriptyline (Elavil) tab 100 mg 100 mg, Oral, QHS, First dose on 06/03/23 at 0415, Until Discontinued Given 06/12/2023 10:04 PM EDT 100 mg Given 06/11/2023 9:43 PM EDT 100 mg Given 06/10/2023 9:15 PM EDT 100 mg aspirin tab 325 mg 325 mg, Oral, ONCE, On 06/03/23 at 0615, For 1 dose Given 06/03/2023 5:42 AM EDT 325 mg Bisacodyl (Dulcolax) supp 10 mg 10 mg, Rectal, DAILY PRN Constipation, Starting on Sun06/06/23 at 0250, Until Sun06/13/23 at 1914, Administer if no bowel movement within past 72 hours and patient unable to take oral medications. Bisacodyl (Dulcolax) tab 5 mg 5 mg, Oral, DAILY PRN Constipation, Starting on Sun06/06/23 at 0250, Until Sun06/13/23 at 1914, Administer in addition to polyethylene glycol and senna-docusate if no bowel movement in past 72 hours. ceFAZolin in dextrose (Ancef) ivpb 2 g 2 g, IV Piggyback, Q8H, 15 doses, First dose on Sun06/07/23 at 2200, Last dose on Sun06/12/23 at 1400 New Bag 06/09/2023 6:47 AM EDT 2 g 100 mL/hr New Bag 06/08/2023 9:59 PM EDT 2 g 100 mL/hr New Bag 06/08/2023 1:35 PM EDT 2 g 100 mL/hr ceFAZolin in dextrose (Ancef) ivpb 2 g 2 g, IV Piggyback, Q12H, First dose (after last modification) on Sun06/09/23 at 2100, Until Discontinued New Bag 06/13/2023 9:41 AM EDT 2 g 100 mL/hr New Bag 06/12/2023 10:15 PM EDT 2 g 100 mL/hr New Bag 06/12/2023 8:55 AM EDT 2 g 100 mL/hr chlorhexidine gluconate cloth 2 % pad External, [id number], First dose on Sun06/12/23 at 1330, Until Discontinued, Applied to appropriate patients per kidney puller's recommendations FOLLOWING daily care. Given 06/13/2023 9:42 AM EDT 1 Pad Given 06/12/2023 1:08 PM EDT 1 Pad Furosemide (Lasix) inj 100 mg 100 mg, IV Push, BID (0900, 1600), First dose (after last modification) on Sun06/06/23 at 1600, Until Discontinued Given 06/12/2023 8:39 AM EDT 100 mg Given 06/11/2023 3:07 PM EDT 100 mg Given 06/11/2023 8:42 AM EDT 100 mg Furosemide (Lasix) inj 40 mg 40 mg, IV Push, ONCE, On Sun06/03/23 at 0315, For 1 dose Given 06/03/2023 3:01 AM EDT 40 mg Furosemide (Lasix) inj 80 mg 80 mg, IV Push, BID (0900, 1600), First dose (after last modification) on Sun06/03/23 at 1600, Until Discontinued Given 06/06/2023 9:41 AM EDT 80 mg Given 06/05/2023 5:01 PM EDT 80 mg Given 06/05/2023 8:39 AM EDT 80 mg hEParin inj 7,500 Units 7,500 Units, Subcutaneous, Q8H, First dose on Sun06/03/23 at 0600, Until Discontinued Given 06/13/2023 6:11 AM EDT 7,500 Units Abdomen Right Lower Given 06/12/2023 10:06 PM EDT 7,500 Units Abdomen Left Lower Given 06/12/2023 1:07 PM EDT 7,500 Units A bdomen Right Lower hydrOXYzine HCl tab 50 mg 50 mg, Oral, Q8H PRN Anxiety, Starting on Sun06/10/23 at 1510, Until Sun06/13/23 at 1914 Given 06/12/2023 10:20 PM EDT 5 0 mg Given 06/11/2023 3:07 PM EDT 50 mg Given 06/10/2023 9:15 PM EDT 50 mg insulin aspart (NovoLOG) inj Subcutaneous, W/MEALS AND HS, First dose on Sun06/03/23 at 0800, Until Discontinued, MEDIUM DOSE (Usual starting dose): [...] insulin dose and call covering provider. Given 06/13/2023 12:54 PM EDT 2 Units Arm Left Upper Given 06/12/2023 10:05 PM EDT 2 Units A rm Left Upper Given 06/12/2023 4:59 PM EDT 2 Units Ar m Left Upper Insulin Glargine (Lantus) inj 10 Units 10 Units, Subcutaneous, HSINSULIN, First dose on Sun06/03/23 at 2200, Until Discontinued, "IF DOSE IS HELD- NOTIFY COVERING PROVIDER!" Given 06/12/2023 10:05 PM EDT 10 Units Arm Left Upper Given 06/11/2023 9:43 PM EDT 10 Units Ar m Right Upper Given 06/10/2023 9:15 PM EDT 10 Units Ar m Left Upper isolyte-S pH 7.4 infusion Intravenous, at 10 mL/hr, Plasma-LYTE 148, isolyte-S, and isolyte-S pH 7.4 are considered equivalent - including for MAR barcode scanning., CONTINUOUS, Starting on Sun06/06/23 at 1400, Until Sun06/13/23 at 1914 New Bag 06/06/2023 1:20 PM EDT 10 mL/ hr levothyroxine (Levoxyl) tab 175 mcg 175 mcg, Oral, Daily(AM), First dose on Sun06/03/23 at 0900, Until Discontinued Given 06/13/2023 9:35 AM EDT 175 mcg Given 06/12/2023 8:39 AM EDT 175 mcg Given 06/11/2023 8:40 AM EDT 175 mcg LiquaCel 30 mL, Oral, BID (.AM/PM), First dose on Sun06/11/23 at 2100, Until Discontinued Given 06/13/2023 9:35 AM EDT 30 mL Given 06/12/2023 10:06 PM EDT 30 mL Given 06/12/2023 8:39 AM EDT 30 mL Lisinopril (Prinivil) tab 40 mg 40 mg, Oral, Daily(AM), First dose on Sun06/03/23 at 0900, Until Discontinued Given 06/13/2023 9:35 AM EDT 40 mg Given 06/12/2023 8:39 AM EDT 40 mg Given 06/11/2023 8:40 AM EDT 40 mg LORAzepam (Ativan) tab 0.5 mg 0.5 mg, Oral, ONCALL, Starting on Sun06/04/23 at 1051, Until Sun06/04/23 at 1122, For 1 dose, Prior to mri Given 06/04/2023 11:22 AM EDT 0.5 mg Miconazole Nitrate (Remedy) powder Topical, BID (.AM/PM), First dose on Sun06/04/23 at 2100, Until Discontinued, Apply to abd folds Given 06/13/2023 9:34 AM EDT Given 06/12/2023 10:16 PM EDT Given 06/12/2023 8:39 AM EDT morphine sulfate inj 1 mg 1 mg, IV Push, ONCE, On Sun06/03/23 at 0615, For 1 dose Given 06/03/2023 5:42 AM EDT 1 mg Nitroglycerin (Nitrostat) sl tab 0.4 mg 0.4 mg, Sublingual, Q5 MIN PRN Pain, Chest, Starting on Sun06/03/23 at 0509, Until Sun06/13/23 at 1914, This med should NOT be Crushed or Chewed Given 06/10/2023 3:05 PM EDT 0.4 mg Given 06/03/2023 5:20 AM EDT 0.4 mg NSS 0.9% 500 mL bolus infusion IV Piggyback, at 500 mL/hr Administer over 60 Minutes, ONCE, 1 dose, On 06/02/23 at 2000 New Bag 06/02/2023 7:46 PM EDT 500 mL 50 0 mL/hr omeprazole (PriLOSEC) cap 20 mg 20 mg, Oral, BEFORE BREAKFAST, First dose on Sun06/03/23 at 0745, Until Discontinued, This med should NOT be Crushed or Chewed Given 06/13/2023 7:45 AM EDT 20 mg Given 06/12/2023 8:39 AM EDT 20 mg Given 06/11/2023 8:40 AM EDT 20 mg ondansetron (Zofran) inj 4 mg 4 mg, IV Push, Q6H PRN Nausea, Starting on Sun06/03/23 at 0249, Until Sun06/13/23 at 1914 Given 06/08/2023 8:19 PM EDT 4 mg Given 06/07/2023 1:50 PM EDT 4 mg Given 06/04/2023 5:34 PM EDT 4 mg Oral Hygiene: Mouth Swab with dentifrice Oral, PCHS, First dose on Sun06/12/23 at 1330, Until Discontinued, To be used with 1.5% hydrogen peroxide solution or 0.05% cetylpyridium chloride oral rinse Given 06/13/2023 9:42 AM EDT 1 Kit Given 06/12/2023 9:58 PM EDT 1 Kit Given 06/12/2023 6:00 PM EDT oxygen GAS Inhalation, OXYGEN, First dose on 06/02/23 at 1900, Until Discontinued, Device/Managed by: Low Flow Device, Goal SPO2 (%): 91-95, Starting Device: Nasal Cannula, Initial Flow Rate (LPM): 2, Lowest Support: Nasal Cannula: Flow 0-6 LPM. Titrate up/down by 1 LPM., Titration Interval: Q2 minutes and as needed., Notify Provider: For sudden DECREASE in resting SPO2 to less than 85% and when escalating delivery device., Wean patient off Oxygen when the oxygen saturation is greater than or equal to 93% Oxygen On 06/13/2023 8:00 AM EDT Oxygen On 06/13/2023 12:00 AM EDT 2 L/min(Oxygen) Oxygen On 06/12/2023 4:00 PM EDT 2 L/min(Oxygen) Polyethylene Glycol 3350 (Miralax) oral powder 17 g 17 g (1 Packet), Oral, DAILY PRN Constipation, Starting on Sun06/03/23 at 0250, Until Sun06/13/23 at 191, Administer if no bowel movement within past 24 hours. Given 06/08/2023 5:56 PM EDT 17 g Given 06/07/2023 11:26 AM EDT 17 g Given 06/03/2023 8:56 AM EDT 17 g senna-docusate (Senokot-S) 1 Tablet 1 Tablet, Oral, BID PRN Constipation, Starting on Sun06/05/23 at 0250, Until Sun06/13/23 at 191, Administer in addition to polyethylene glycol if no bowel movement within past 48 hours. Given 06/09/2023 10:07 AM EDT 1 Tablet Simvastatin (Zocor) tab 40 mg 40 mg, Oral, Daily(AM), First dose on Sun06/03/23 at 0900, Until Discontinued Given 06/13/2023 9:35 AM EDT 40 mg Given 06/12/2023 8:39 AM EDT 40 mg Given 06/11/2023 8:40 AM EDT 40 mg sodium chloride 0.9 % flush central line 10 mL 10 mL, IV Push, Q8H, First dose on Sun06/12/23 at 1400, Until Discontinued, TO UNUSED PORTS Do not flush if lock, PICC, or central line not in place; IV infusing or unable to flush. Given 06/13/2023 2:0 0 PM EDT 10 mL Given 06/13/2023 6:00 AM EDT 10 mL Given 06/12/2023 10:00 PM EDT 10 mL sodium chloride 0.9 % flush/inj 3 mL 3 mL, IV Push, PRN Other, Line Patency, Starting on Sun06/03/23 at 0248, Until Sun06/13/23 at 1914, Do not flush if lock, PICC, or central line not in place, IV infusing or unable to flush spacer, inhalation (Aerochamber) device 1 Each 1 Each, Inhalation, ONCE, On 06/02/23 at 2000, For 1 dose Given 06/02/2023 8:00 PM EDT 1 Each Torsemide (Demadex) tab 60 mg 60 mg, Oral, BID (0900, 1600), First dose on Sun06/12/23 at 1600, Until Discontinued Given 06/13/2023 9:35 AM EDT 60 mg Given 06/12/2023 5:00 PM EDT 60 mg documented in this encounter Active and Recently Administered Medications Times are shown in EDT. Scheduled Medication Order 06/11/2023 06/12/2023 06/13/2023 amitriptyline (Elavil) tab 100 mg 100 mg, Oral, QHS, First dose on Sun06/03/23 at 0415, Until Discontinued 2142 (Given - Provider: Lynnette Meek LPN) 2203 (Given - Provider: Rita Anguiano, SARTHAK) ceFAZolin in dextrose (Ancef) ivpb 2 g 2 g, IV Piggyback, Q12H, First dose (after last modification) on 06/09/23 at 2100, Until Discontinued 08 (New Bag - Provider: Ayala Alejandro RN)215 (New Bag - Provider: Lynnette Meek LPN)222 (Stopped - Provider: Lynnette Meek LPN) 0855 (New Bag - Provider: Evelina Martinez RN)0926 (Stopped - Provider: Frank Lambert LPN)2215 (New Bag - Provider: Rita Anguiano, SARTHAK)2245 (Stopped - Provider: Rita Anguiano RN) 0941 (New Bag - Provider: Karthikeyan Mistry LPN)1011 (Stopped - Provider: Karthikeyan Mistry LPN) chlorhexidine gluconate cloth 2 % pad External, [id number], First dose on Sun06/12/23 at 1330, Until Discontinued, Applied to appropriate patients per kidney puller's recommendations FOLLOWING daily care. 1308 (Given - Provider: Evelina Martinez RN) 0942 (Given - Provider: Karthikeyan Mistry LPN) Furosemide (Lasix) inj 100 mg (CANCELED) 100 mg, IV Push, BID (0900, 1600), First dose (after last modification) on Sun06/06/23 at 1600, Until Discontinued 0842 (Given - Provider: Ayala Alejandro RN)1507 (Given - Provider: Ayala Alejandro RN) 0839 (Given - Provider: Evelina Martinez RN) hEParin inj 7,500 Units 7,500 Units, Subcutaneous, Q8H, First dose on Sun06/03/23 at 0600, Until Discontinued 0629 (Given - Provider: Thao Starks RN)1447 (Given - Provider: Ayala Alejandro RN)2146 (Given - Provider: Lynnette Meek LPN) 0549 (Given - Provider: Lynnette Meek LPN)1307 (Given - Provider: Evelina Martinez RN)2206 (Given - Provider: Rita Anguiano, SARTHAK) 0611 (Given - Provider: Rita Anguiano RN)1400 (Not Given - Provider: Karthikeyan Mistry LPN - Reason: Refused-Notify Provider - Comment: being discharged) insulin aspart (NovoLOG) inj Subcutaneous, W/MEALS AND HS, First dose on Sun06/03/23 at 0800, Until Discontinued, MEDIUM DOSE (Usual starting dose): [...] insulin dose and call covering provider. 0800 (No Insulin - Provider: Ayala Alejandro RN - Reason: Parameter(s) Not Met)1211 (Given - Provider: Ayala Alejandro RN)1729 (Given - Provider: Ayala Alejandro RN)214 (Given - Provider: Lynnette Meek LPN) 0839 (Given - Provider: Evelina Martinez RN)1306 (Given - Provider: Evelina Martinez RN)1659 (Given - Provider: Frank Lambert LPN)220 (Given - Provider: Rita Anguiano RN) 0835 (No Insulin - Provider: Karthikeyan Mistry LPN - Reason: Parameter(s) Not Met)1254 (Given - Provider: Karthikeyan Mistry LPN) Insulin Glargine (Lantus) inj 10 Units 10 Units, Subcutaneous, HSINSULIN, First dose on 06/03/23 at 2200, Until Discontinued, "IF DOSE IS HELD- NOTIFY COVERING PROVIDER!" 2142 (Given - Provider: Lynnette Meek LPN) 2204 (Given - Provider: Rita Anguiano RN) levothyroxine (Levoxyl) tab 175 mcg 175 mcg, Oral, Daily(AM), First dose on 06/03/23 at 0900, Until Discontinued 0840 (Given - Provider: Ayala Alejandro RN) 0839 (Given - Provider: Evelina Martinez RN) 0935 (Given - Provider: Karthikeyan Mistry LPN) LiquaCel 30 mL, Oral, BID (.AM/PM), First dose on Sun06/11/23 at 2100, Until Discontinued 2142 (Given - Provider: Lynnette Meek LPN) 0839 (Given - Provider: Evelina Martinez RN)220 (Given - Provider: Rita Anguiano RN) 0935 (Given - Provider: Karthikeyan Mistry LPN) Lisinopril (Prinivil) tab 40 mg 40 mg, Oral, Daily(AM), First dose on 06/03/23 at 0900, Until Discontinued 0840 (Given - Provider: Ayala Alejandro RN) 0839 (Given - Provider: Evelina Martinez RN) 0935 (Given - Provider: Karthikeyan Mistry LPN) Miconazole Nitrate (Remedy) powder Topical, BID (.AM/PM), First dose on Sun06/04/23 at 2100, Until Discontinued, Apply to abd folds 0842 (Given - Provider: Ayala Alejandro RN)2100 (Not Given - Provider: Lynnette Meek LPN - Reason: Refused-Notify Provider) 0839 (Given - Provider: Evelina Martinez RN)2216 (Given - Provider: Rita Anguiano, SARTHAK) 0934 (Given - Provider: Karthikeyan Mistry LPN) omeprazole (PriLOSEC) cap 20 mg 20 mg, Oral, BEFORE BREAKFAST, First dose on Sun06/03/23 at 0745, Until Discontinued, This med should NOT be Crushed or Chewed 0840 (Given - Provider: Ayala Alejandro RN) 0839 (Given - Provider: Evelina Martinez RN) 0745 (Given - Provider: Karthikeyan Mistry LPN) Oral Hygiene: Mouth Swab with dentifrice Oral, [facility], First dose on Sun06/12/23 at 1330, Until Discontinued, To be used with 1.5% hydrogen peroxide solution or 0.05% cetylpyridium chloride oral rinse 1330 (Given - Provider: Evelina Martinez RN)1800 (Given - Provider: Frank Lambert LPN)2158 (Given - Provider: Rita Anguiano, SARTHAK) 0942 (Given - Provider: Karthikeyan Mistry LPN)1300 (Not Given - Provider: Karthikeyan Mistry LPN - Reason: Refused-Notify Provider - Comment: being discharged) oxygen GAS Inhalation, OXYGEN, First dose on 06/02/23 at 1900, Until Discontinued, Device/Managed by: Low Flow Device, Goal SPO2 (%): 91-95, Starting Device: Nasal Cannula, Initial Flow Rate (LPM): 2, Lowest Support: Nasal Cannula: Flow 0-6 LPM. Titrate up/down by 1 LPM., Titration Interval: Q2 minutes and as needed., Notify Provider: For sudden DECREASE in resting SPO2 to less than 85% and when escalating delivery device., Wean patient off Oxygen when the oxygen saturation is greater than or equal to 93% 0000 (Oxygen On - Provider: Thao Starks RN)0847 (Oxygen On - Provider: Ayala Alejandro RN)1508 (Oxygen On - Provider: Ayala Alejandro RN) 0000 (Oxygen On - Provider: Lynnette Meek LPN)0800 (Oxygen On - Provider: Evelina Martinez RN)1600 (Oxygen On - Provider: Frank Lambert LPN) 0000 (Oxygen On - Provider: Rita Anguiano RN)0800 (Oxygen On - Provider: Karthikeyan Mistry LPN) Simvastatin (Zocor) tab 40 mg 40 mg, Oral, Daily(AM), First dose on Sun06/03/23 at 0900, Until Discontinued 0840 (Given - Provider: Ayala Alejandro RN) 0839 (Given - Provider: Evelina Martinez RN) 0935 (Given - Provider: Karthikeyan Mistry LPN) sodium chloride 0.9 % flush central line 10 mL 10 mL, IV Push, Q8H, First dose on Sun06/12/23 at 1400, Until Discontinued, TO UNUSED PORTS Do not flush if lock, PICC, or central line not in place; IV infusing or unable to flush. 1400 (Given - Provider: Evelina Martinez RN)2200 (Given - Provider: Rita Anguiano RN) 0600 (Given - Provider: Rita Anguiano RN)1400 (Given - Provider: Karthikeyan Mistry LPN) Torsemide (Demadex) tab 60 mg 60 mg, Oral, BID (0900, 1600), First dose on Sun06/12/23 at 1600, Until Discontinued 1700 (Given - Provider: Frank Lambert LPN) 0935 (Given - Provider: Karthikeyan Mistry LPN) Continuous Medication Order 06/11/2023 06/12/2023 06/13/2023 isolyte-S pH 7.4 infusion Intravenous, at 10 mL/hr, Plasma-LYTE 148, isolyte-S, and isolyte-S pH 7.4 are considered equivalent - including for MAR barcode scanning., CONTINUOUS, Starting on Sun06/06/23 at 1400, Until Sun06/13/23 at 1913 PRN Medication Order 06/11/2023 06/12/2023 06/13/2023 Acetaminophen (Tylenol) tab 650 mg 650 mg, Oral, Q6H PRN Pain, Mild, Fever >38C(100.5F), Starting on Sun06/03/23 at 0250, Until Sun06/13/23 at 1913, Maximum of 4 grams (4000 mg) per day. 2203 (Given - Provider: Rita Anguiano RN) albuterol (VENTOLIN HFA/PROVENTIL HFA) inhaler 2 Puff, Inhalation, Q6H PRN Dyspnea, Starting on Sun06/06/23 at 2336, Until Sun06/13/23 at 1913, (RT) SEND INHALER WITH PATIENT! WASTE INFO ( IF NOT SENT HOME WITH PATIENT) : Return unused medication to pharmacy in zip lock bag for disposal into black container labeled SP. Bisacodyl (Dulcolax) supp 10 mg(Linked Group 1) 10 mg, Rectal, DAILY PRN Constipation, Starting on Sun06/06/23 at 0250, Until Sun06/13/23 at 1913, Administer if no bowel movement within past 72 hours and patient unable to take oral medications. Bisacodyl (Dulcolax) tab 5 mg(Linked Group 1) 5 mg, Oral, DAILY PRN Constipation, Starting on Sun06/06/23 at 0250, Until Sun06/13/23 at 1913, Administer in addition to polyethylene glycol and senna-docusate if no bowel movement in past 72 hours. dextrose 50% inj 25 mL 25 mL, IV Push, PRN Hypoglycemia, Other, For blood glucose 54 - 69 mg/dL or 70 - 100 mg/dL with symptoms AND patient is unresponsive, NPO, OR unable to swallow, Starting on Sun06/03/23 at 0246, Until Sun06/13/23 at 1913, Administer IV. Recheck blood glucose after 15 minutes. Notify provider. dextrose 50% inj 50 mL 50 mL, IV Push, PRN Hypoglycemia, Other, For blood glucose below 54 mg/dL AND patient unresponsive, NPO, OR unable to swallow, Starting on Sun06/03/23 at 0246, Until Sun06/13/23 at 1913, Administer IV. Recheck blood glucose in 15 minutes. Notify provider. glucagon (Glucagen) inj 1 mg 1 mg, Intramuscular, PRN Hypoglycemia, Other, If patient is unresponsive, or NPO and has no IV access, Starting on Sun06/03/23 at 0246, Until Sun06/13/23 at 1913, NPO and no IV access with either [...] patient alert WITH difficulty chewing/swallowing, Starting on Sun06/03/23 at 0246, Until Sun06/13/23 at 1913, Administer gel. Recheck blood glucose after 15 minutes. Notify provider. 37.5 gram tube = 15 grams glucose = 1 each Glucose (Glutose 15) 40 % gel 30 g of glucose 30 g of glucose, Oral, PRN Hypoglycemia (low sugar), Other, For blood glucose below 54 mg/dL AND patient alert WITH difficulty chewing/swallowing, Starting on Sun06/03/23 at 0246, Until Sun06/13/23 at 1913, Administer gel. Recheck blood glucose after 15 minutes. Notify provider. 37.5 gram tube = 15 grams glucose = 1 each glucose chew tab 16 g 16 g, Oral, PRN Hypoglycemia, Other, For blood glucose 54 - 69 mg/dL or 70 - 100 mg/dL with symptoms and patient alert without difficulty chewing/swallowing., Starting on Sun06/03/23 at 0246, Until Sun06/13/23 at 1913 hydrOXYzine HCl tab 50 mg 50 mg, Oral, Q8H PRN Anxiety, Starting on Sun06/10/23 at 1510, Until Sun06/13/23 at 1913 1507 (Given - Provider: Ayala Alejandro RN) 2220 (Given - Provider: Rita Anguiano RN - Comment: pt requesting hydroxyzine for anxiety) Nitroglycerin (Nitrostat) sl tab 0.4 mg 0.4 mg, Sublingual, Q5 MIN PRN Pain, Chest, Starting on Sun06/03/23 at 0509, Until Sun06/13/23 at 1913, This med should NOT be Crushed or Chewed ondansetron (Zofran) inj 4 mg 4 mg, IV Push, Q6H PRN Nausea, Starting on Sun06/03/23 at 0249, Until Sun06/13/23 at 1913 Polyethylene Glycol 3350 (Miralax) oral powder 17 g(Linked Group 1) 17 g (1 Packet), Oral, DAILY PRN Constipation, Starting on Sun06/03/23 at 0250, Until Sun06/13/23 at 1913, Administer if no bowel movement within past 24 hours. senna-docusate (Senokot-S) 1 Tablet(Linked Group 1) 1 Tablet, Oral, BID PRN Constipation, Starting on Sun06/05/23 at 0250, Until Sun06/13/23 at 1913, Administer in addition to polyethylene glycol if no bowel movement within past 48 hours. sodium chloride 0.9 % flush/inj 3 mL 3 mL, IV Push, PRN Other, Line Patency, Starting on Sun06/03/23 at 0248, Until Sun06/13/23 at 1913, Do not flush if lock, PICC, or central line not in place, IV infusing or unable to flush Linked Groups Order Group 1: Polyethylene Glycol 3350 (Miralax) oral powder 17 gJump to med 17 g (1 Packet), Oral, DAILY PRN Constipation, Starting on Sun06/03/23 at 0250, Until Sun06/13/23 at 1913, Administer if no bowel movement within past 24 hours. And senna-docusate (Senokot-S) 1 TabletJump to med 1 Tablet, Oral, BID PRN Constipation, Starting on Sun06/05/23 at 0250, Until Sun06/13/23 at 1913, Administer in addition to polyethylene glycol if no bowel movement within past 48 hours. And Bisacodyl (Dulcolax) tab 5 mgJump to med 5 mg, Oral, DAILY PRN Constipation, Starting on Sun06/06/23 at 0250, Until Sun06/13/23 at 1913, Administer in addition to polyethylene glycol and senna-docusate if no bowel movement in past 72 hours. And Bisacodyl (Dulcolax) supp 10 mgJump to med 10 mg, Rectal, DAILY PRN Constipation, Starting on Sun06/06/23 at 0250, Until Sun06/13/23 at 1914, Administer if no bowel movement within past 72 hours and patient unable to take oral medications. documented in this encounter Additional Health Concerns Infection Onset Date Last Indicated Resolved Time Respiratory Rule-Out 06/03/2023 06/03/2023 024 3:32 AM EDT COVID-19 Rule-Out 06/03/2023 06/03/2023 06/03/2023 3:32 AM EDT documented as of this encounter Advance Directives Latest Code Status on File Code Status Date Activated Date Inactivated Comments Full Code 06/03/2023 2:50 AM 06/13/2023 7:19 PM This o rder reflects the patients wishes and were consensually agreed upon. Question Answer Comments Discussion of Advance Directives occurred with: Patient Care Teams Production Supervisor Trainee Relationship Specialty Start Date End Date Natali Langston DO 6 [facility] [address] [place] [address] PCP - General Family Medicine 06/18/14 documented as of this encounter
--- OUTSIDE RECORDS SUMMARY | 2023-07-28 23:06 | External Medical Summary ---
Author Name Unknown Address Unknown Organization K1F:LABORATORY [facility] - [address] [place] [address] Laboratory Report Ordering Provider Test Date Status BRONWYN BERNARD 06/15/2023 04:05:00 Final Observation Date Value Abnormality Reference (Units ) Status TSH 06/15/2023 04:05:00 3.57 0.27-4.20 (uIU/mL) Final Performing Location LABORATORY [facility] - [address] [place] [address]
--- OUTSIDE RECORDS SUMMARY | 2023-07-28 23:06 | External Medical Summary ---
Author Name Unknown Address Unknown Organization K1F:LABORATORY [facility] - [address] [place] [place] [address] Laboratory Report Ordering Provider Test Date Status BRONWYN BERNARD 06/15/2023 04:05:00 Final Observation Date Value Abnormality Reference (Units ) Status BUN 06/15/2023 04:05:00 34 Above high normal 6-20 (mg/dL) Final Creatinine 06/15/2023 04:05:00 1.9 Above high normal 0.5-1.0 (mg/dL) Final Glomerular filtration rate/1.73 sq M.predicted [Volume Rate/Area] in Serum, Plasma or Blood by Creatinine-based formula (CKD-EPI) 06/15/2023 04:05:00 29 Below low normal >=60 (mL/min) Final eGFR is calculated based on the CKD-EPI 2020 equation Sodium 06/15/2023 04:05:00 135 135-146 (m mol/L) Final Potassium 06/15/2023 04:05:00 3.3 Below low normal 3.5 -5.1 (mmol/L) Final Cl 06/15/2023 04:05:00 99 98-107 (mm ol/L) Final CO2 06/15/2023 04:05:00 25 22-32 (mmo l/L) Final Anion gap 06/15/2023 04:05:00 11 7-15 (mmol /L) Final Glucose 06/15/2023 04:05:00 204 Above high normal 70 -120 (mg/dL) Final Albumin 06/15/2023 04:05:00 2.4 Below low normal 3.8 -5.0 (g/dL) Final AST (Aspartate aminotransferase) 06/15/2023 04:05:00 40 Above high normal 10-35 (U/L) Final Alk Phos 06/15/2023 04:05:00 289 Above high normal 35 -130 (U/L) Final Bilirubin, Total 06/15/2023 04:05:00 <0.2 <=1 .2 (mg/dL) Final Calcium 06/15/2023 04:05:00 8.3 Below low normal 8.4 -10.2 (mg/dL) Final Protein 06/15/2023 04:05:00 5.8 Below low normal 6.0 -8.3 (g/dL) Final ALT (Alanine aminotransferase) 06/15/2023 04:05:00 <5 Below low normal 10-35 (U/L) Final Performing Location LABORATORY [facility] - [address] [place], [place] [address] [place] [address]
--- OUTSIDE RECORDS SUMMARY | 2023-07-28 23:07 | External Medical Summary ---
Author Name Unknown Address Unknown Organization : Laboratory Report Ordering Provider Test Date Status AILEEN KIDD 06/13/2023 07:32:44 Final Observation Date Value Abnormality Reference (Units ) Status Glucose Point of Care 06/13/2023 07:32:44 114 70-120 (mg/dL) Final Performing Location
--- OUTSIDE RECORDS SUMMARY | 2023-07-28 23:07 | External Medical Summary ---
Author Name Unknown Address Unknown Organization K1F:LABORATORY [facility] - [address] [place] [address] Laboratory Report Ordering Provider Test Date Status ZARA MAKI 06/07/2023 05:38:00 Final Observation Date Value Abnormality Reference (Units ) Status WBC, Total 06/07/2023 05:38:00 8.35 4.00-10.80 (K/uL) Final RBC 06/07/2023 05:38:00 2.90 3.85-5.15 (M/uL) Final Hemoglobin 06/07/2023 05:38:00 7.9 Below low normal 12.0-15.3 (g/dL) Final HCT 06/07/2023 05:38:00 26.4 Below low normal 36.0-45.2 (%) Final MCV 06/07/2023 05:38:00 91.0 81.5-97.5 (fL) Final MCH 06/07/2023 05:38:00 27.2 27.0-34.0 (pg) Final MCHC 06/07/2023 05:38:00 29.9 32.0-36.0 (g/dL) Final RDW 06/07/2023 05:38:00 18.7 11.5-15.5 (%) Final Platelets 06/07/2023 05:38:00 246 140-400 (K/uL) Final MPV 06/07/2023 05:38:00 12.1 6.6-11.1 (fL) Final Nucleated erythrocytes/100 leukocytes [Ratio] in Blood by Automated count 06/07/2023 05:38:00 0 <=0 (/100 WBCs) Final Performing Location LABORATORY [facility] - [address] [place] [address]
--- OUTSIDE RECORDS SUMMARY | 2023-07-28 23:07 | External Medical Summary ---
Author Name Unknown Address Unknown Organization : Laboratory Report Ordering Provider Test Date Status REN FARRIS 06/12/2023 11:36:26 Final Observation Date Value Abnormality Reference (Units ) Status Glucose Point of Care 06/12/2023 11:36:26 191 Above high normal 70-120 (mg/dL) Final Performing Location
--- OUTSIDE RECORDS SUMMARY | 2023-07-28 23:07 | External Medical Summary ---
Author Name Unknown Address Unknown Organization K1F:LABORATORY [facility] - [address] [place] [address] Laboratory Report Ordering Provider Test Date Status ZARA MAKI 06/13/2023 06:36:00 Final Observation Date Value Abnormality Reference (Units ) Status WBC, Total 06/13/2023 06:36:00 8.59 4.00-10.80 (K/uL) Final RBC 06/13/2023 06:36:00 2.91 3.85-5.15 (M/uL) Final Hemoglobin 06/13/2023 06:36:00 8.0 Below low normal 12.0-15.3 (g/dL) Final HCT 06/13/2023 06:36:00 26.6 Below low normal 36.0-45.2 (%) Final MCV 06/13/2023 06:36:00 91.4 81.5-97.5 (fL) Final MCH 06/13/2023 06:36:00 27.5 27.0-34.0 (pg) Final MCHC 06/13/2023 06:36:00 30.1 32.0-36.0 (g/dL) Final RDW 06/13/2023 06:36:00 18.8 11.5-15.5 (%) Final Platelets 06/13/2023 06:36:00 223 140-400 (K/uL) Final MPV 06/13/2023 06:36:00 12.5 6.6-11.1 (fL) Final Nucleated erythrocytes/100 leukocytes [Ratio] in Blood by Automated count 06/13/2023 06:36:00 0 <=0 (/100 WBCs) Final Performing Location LABORATORY [facility] - [address] [place] [address]
--- OUTSIDE RECORDS SUMMARY | 2023-07-28 23:07 | External Medical Summary ---
Author Name Unknown Address Unknown Organization : Laboratory Report Ordering Provider Test Date Status REN FARRIS 06/11/2023 21:27:35 Final Observation Date Value Abnormality Reference (Units ) Status Glucose Point of Care 06/11/2023 21:27:35 178 Above high normal 70-120 (mg/dL) Final Performing Location
--- OUTSIDE RECORDS SUMMARY | 2023-07-28 23:07 | External Medical Summary ---
Author Name Unknown Address Unknown Organization K1F:LABORATORY [facility] - [address] [place] [address] [address] [place] [address] Laboratory Report Ordering Provider Test Date Status REN FARRIS 06/07/2023 16:03:00 Final No anaerobic bottle received . Observation Date Value Abnormality Reference (Units ) Status Bacteria identified in Specimen by Culture 06/07/2023 16:03:00 No growth Final Test: Culture, Blood
Janelle lockhart Source: Blood, Venous
Specimen Type: Blood
Specimen Date: 06/07/2023 4:03 PM
Result Date: 06/12/2023 5:01 PM
Result Status: Final result
Resulting Lab: LABORATORY [facility]
[address] [place] [address]
[address] [place] [address]

CULTURE

No growth

No anaerobic bottle received.

null Performing Location LABORATORY [facility] - [address] [place] [address] [address] [place] [address]
--- OUTSIDE RECORDS SUMMARY | 2023-07-28 23:07 | External Medical Summary ---
Author Name Unknown Address Unknown Organization K1F:LABORATORY [address] [place] [place] [address] Laboratory Report Ordering Provider Test Date Status REN FARRIS 06/07/2023 16:03:00 Final No anaerobic bottle received . Observation Date Value Abnormality Reference (Units ) Status Bacteria identified in Specimen by Culture 06/07/2023 16:03:00 No growth Final Test: Culture, Blood (Site 2 )
Specimen Source: Blood, Venous
Specimen Type: Blood
Specimen Date: 06/07/2023 4:03 PM
Result Date: 06/12/2023 5:01 PM
Result Status: Final result
Resulting Lab: LABORATORY [facility]
[address] [place] [address]
[address] [place] [address]

CULTURE

No growth

No anaerobic bottle received.

null Performing Location LABORATORY [address] [place] [address]
--- OUTSIDE RECORDS SUMMARY | 2023-07-28 23:07 | External Medical Summary ---
Author Name Unknown Address Unknown Organization : Laboratory Report Ordering Provider Test Date Status STEHPANIE ALMARAZ 06/09/2023 16:17:37 Final Observation Date Value Abnormality Reference (Units ) Status Glucose Point of Care 06/09/2023 16:17:37 166 Above high normal 70-120 (mg/dL) Final Performing Location
--- OUTSIDE RECORDS SUMMARY | 2023-07-28 23:07 | External Medical Summary ---
Author Name Unknown Address Unknown Organization : Laboratory Report Ordering Provider Test Date Status REN FARRIS 06/11/2023 17:08:26 Final Observation Date Value Abnormality Reference (Units ) Status Glucose Point of Care 06/11/2023 17:08:26 177 Above high normal 70-120 (mg/dL) Final Performing Location
--- OUTSIDE RECORDS SUMMARY | 2023-07-28 23:07 | External Medical Summary ---
Author Name Unknown Address Unknown Organization K1F:LABORATORY [facility] - [address] [place] [address] Laboratory Report Ordering Provider Test Date Status ZARA MAKI 06/10/2023 05:44:00 Final Observation Date Value Abnormality Reference (Units ) Status BUN 06/10/2023 05:44:00 31 Above high normal 6-20 (mg/dL) Final Creatinine 06/10/2023 05:44:00 2.0 Above high normal 0.5-1.0 (mg/dL) Final Glomerular filtration rate/1.73 sq M.predicted [Volume Rate/Area] in Serum, Plasma or Blood by Creatinine-based formula (CKD-EPI) 06/10/2023 05:44:00 28 Below low normal >=60 (mL/min) Final eGFR is calculated based on the CKD-EPI 2020 equation Sodium 06/10/2023 05:44:00 137 135-146 (m mol/L) Final Potassium 06/10/2023 05:44:00 3.9 3.5-5.1 (m mol/L) Final Cl 06/10/2023 05:44:00 103 98-107 (mm ol/L) Final CO2 06/10/2023 05:44:00 24 22-32 (mmo l/L) Final Anion gap 06/10/2023 05:44:00 10 7-15 (mmol /L) Final Glucose 06/10/2023 05:44:00 114 70-120 (mg /dL) Final Calcium 06/10/2023 05:44:00 8.8 8.4-10.2 ( mg/dL) Final Performing Location LABORATORY [facility] - [address] [place] [address]
--- OUTSIDE RECORDS SUMMARY | 2023-07-28 23:07 | External Medical Summary ---
Author Name Unknown Address Unknown Organization : Laboratory Report Ordering Provider Test Date Status STEPHANIE ALMARAZ 06/09/2023 07:28:47 Final Observation Date Value Abnormality Reference (Units ) Status Glucose Point of Care 06/09/2023 07:28:47 130 Above high normal 70-120 (mg/dL) Final Performing Location
--- OUTSIDE RECORDS SUMMARY | 2023-07-28 23:07 | External Medical Summary ---
Author Name Unknown Address Unknown Organization K1F:LABORATORY [facility] - [address] [place] [address] Laboratory Report Ordering Provider Test Date Status ZARA MAKI 06/08/2023 04:33:00 Final Observation Date Value Abnormality Reference (Units ) Status WBC, Total 06/08/2023 04:33:00 8.45 4.00-10.80 (K/uL) Final RBC 06/08/2023 04:33:00 2.91 3.85-5.15 (M/uL) Final Hemoglobin 06/08/2023 04:33:00 7.9 Below low normal 12.0-15.3 (g/dL) Final HCT 06/08/2023 04:33:00 26.7 Below low normal 36.0-45.2 (%) Final MCV 06/08/2023 04:33:00 91.8 81.5-97.5 (fL) Final MCH 06/08/2023 04:33:00 27.1 27.0-34.0 (pg) Final MCHC 06/08/2023 04:33:00 29.6 32.0-36.0 (g/dL) Final RDW 06/08/2023 04:33:00 18.6 11.5-15.5 (%) Final Platelets 06/08/2023 04:33:00 241 140-400 (K/uL) Final MPV 06/08/2023 04:33:00 12.0 6.6-11.1 (fL) Final Nucleated erythrocytes/100 leukocytes [Ratio] in Blood by Automated count 06/08/2023 04:33:00 0 <=0 (/100 WBCs) Final Performing Location LABORATORY [facility] - [address] [place] [address]
--- OUTSIDE RECORDS SUMMARY | 2023-07-28 23:07 | External Medical Summary ---
Author Name Unknown Address Unknown Organization K1F:LABORATORY [facility] - [address] [place] [address] Laboratory Report Ordering Provider Test Date Status ZARA MAKI 06/09/2023 05:22:00 Final Observation Date Value Abnormality Reference (Units ) Status BUN 06/09/2023 05:22:00 32 Above high normal 6-20 (mg/dL) Final Creatinine 06/09/2023 05:22:00 2.0 Above high normal 0.5-1.0 (mg/dL) Final Glomerular filtration rate/1.73 sq M.predicted [Volume Rate/Area] in Serum, Plasma or Blood by Creatinine-based formula (CKD-EPI) 06/09/2023 05:22:00 28 Below low normal >=60 (mL/min) Final eGFR is calculated based on the CKD-EPI 2020 equation Sodium 06/09/2023 05:22:00 140 135-146 (m mol/L) Final Potassium 06/09/2023 05:22:00 3.9 3.5-5.1 (m mol/L) Final Cl 06/09/2023 05:22:00 105 98-107 (mm ol/L) Final CO2 06/09/2023 05:22:00 24 22-32 (mmo l/L) Final Anion gap 06/09/2023 05:22:00 11 7-15 (mmol /L) Final Glucose 06/09/2023 05:22:00 139 Above high normal 70 -120 (mg/dL) Final Calcium 06/09/2023 05:22:00 8.7 8.4-10.2 ( mg/dL) Final Performing Location LABORATORY [facility] - [address] [place] [address]
--- OUTSIDE RECORDS SUMMARY | 2023-07-28 23:07 | External Medical Summary ---
Author Name Unknown Address Unknown Organization : Laboratory Report Ordering Provider Test Date Status ANTONIO ATKINS 06/06/2023 16:28:13 Final Observation Date Value Abnormality Reference (Units ) Status Glucose Point of Care 06/06/2023 16:28:13 142 Above high normal 70-120 (mg/dL) Final Performing Location
--- OUTSIDE RECORDS SUMMARY | 2023-07-28 23:07 | External Medical Summary ---
Author Name Unknown Address Unknown Organization : Laboratory Report Ordering Provider Test Date Status STEPHANIE ALMARAZ 06/10/2023 21:00:49 Final Observation Date Value Abnormality Reference (Units ) Status Glucose Point of Care 06/10/2023 21:00:49 150 Above high normal 70-120 (mg/dL) Final Performing Location
--- OUTSIDE RECORDS SUMMARY | 2023-07-28 23:07 | External Medical Summary ---
Author Name Unknown Address Unknown Organization : Laboratory Report Ordering Provider Test Date Status AILEEN KIDD 06/13/2023 12:07:45 Final Observation Date Value Abnormality Reference (Units ) Status Glucose Point of Care 06/13/2023 12:07:45 159 Above high normal 70-120 (mg/dL) Final Performing Location
--- OUTSIDE RECORDS SUMMARY | 2023-07-28 23:07 | External Medical Summary ---
Author Name Unknown Address Unknown Organization : Laboratory Report Ordering Provider Test Date Status STEPHANIE ALMARAZ 06/10/2023 16:10:34 Final Observation Date Value Abnormality Reference (Units ) Status Glucose Point of Care 06/10/2023 16:10:34 132 Above high normal 70-120 (mg/dL) Final Performing Location
--- OUTSIDE RECORDS SUMMARY | 2023-07-28 23:07 | External Medical Summary ---
Author Name Unknown Address Unknown Organization : Laboratory Report Ordering Provider Test Date Status ANTONIO ATKINS 06/07/2023 04:34:04 Final Observation Date Value Abnormality Reference (Units ) Status Glucose Point of Care 06/07/2023 04:34:04 123 Above high normal 70-120 (mg/dL) Final Performing Location
--- OUTSIDE RECORDS SUMMARY | 2023-07-28 23:07 | External Medical Summary ---
Author Name Unknown Address Unknown Organization : Laboratory Report Ordering Provider Test Date Status STEPHANIE ALMARAZ 06/10/2023 11:44:43 Final Observation Date Value Abnormality Reference (Units ) Status Glucose Point of Care 06/10/2023 11:44:43 128 Above high normal 70-120 (mg/dL) Final Performing Location
--- OUTSIDE RECORDS SUMMARY | 2023-07-28 23:07 | External Medical Summary ---
Author Name Unknown Address Unknown Organization : Laboratory Report Ordering Provider Test Date Status STEPHANIE ALMARAZ 06/09/2023 11:36:11 Final Observation Date Value Abnormality Reference (Units ) Status Glucose Point of Care 06/09/2023 11:36:11 139 Above high normal 70-120 (mg/dL) Final Performing Location
--- OUTSIDE RECORDS SUMMARY | 2023-07-28 23:07 | External Medical Summary ---
Author Name Unknown Address Unknown Organization : Laboratory Report Ordering Provider Test Date Status ANTONIO ATKINS 06/06/2023 21:31:03 Final Observation Date Value Abnormality Reference (Units ) Status Glucose Point of Care 06/06/2023 21:31:03 149 Above high normal 70-120 (mg/dL) Final Performing Location
--- OUTSIDE RECORDS SUMMARY | 2023-07-28 23:07 | External Medical Summary ---
Author Name Unknown Address Unknown Organization : Laboratory Report Ordering Provider Test Date Status REN FARRIS 06/08/2023 11:26:42 Final Observation Date Value Abnormality Reference (Units ) Status Glucose Point of Care 06/08/2023 11:26:42 132 Above high normal 70-120 (mg/dL) Final Performing Location
--- OUTSIDE RECORDS SUMMARY | 2023-07-28 23:07 | External Medical Summary ---
Author Name Unknown Address Unknown Organization : Laboratory Report Ordering Provider Test Date Status REN FARRIS 06/07/2023 21:36:11 Final Observation Date Value Abnormality Reference (Units ) Status Glucose Point of Care 06/07/2023 21:36:11 151 Above high normal 70-120 (mg/dL) Final Performing Location
--- OUTSIDE RECORDS SUMMARY | 2023-07-28 23:07 | External Medical Summary ---
Author Name Unknown Address Unknown Organization K1F:LABORATORY [facility] - [address] [place] [address] Laboratory Report Ordering Provider Test Date Status ZARA MAKI 06/12/2023 06:15:00 Final Observation Date Value Abnormality Reference (Units ) Status BUN 06/12/2023 06:15:00 29 Above high normal 6-20 (mg/dL) Final Creatinine 06/12/2023 06:15:00 1.9 Above high normal 0.5-1.0 (mg/dL) Final Glomerular filtration rate/1.73 sq M.predicted [Volume Rate/Area] in Serum, Plasma or Blood by Creatinine-based formula (CKD-EPI) 06/12/2023 06:15:00 30 Below low normal >=60 (mL/min) Final eGFR is calculated based on the CKD-EPI 2020 equation Sodium 06/12/2023 06:15:00 137 135-146 (m mol/L) Final Potassium 06/12/2023 06:15:00 3.5 3.5-5.1 (m mol/L) Final Cl 06/12/2023 06:15:00 102 98-107 (mm ol/L) Final CO2 06/12/2023 06:15:00 24 22-32 (mmo l/L) Final Anion gap 06/12/2023 06:15:00 11 7-15 (mmol /L) Final Glucose 06/12/2023 06:15:00 180 Above high normal 70 -120 (mg/dL) Final Calcium 06/12/2023 06:15:00 8.8 8.4-10.2 ( mg/dL) Final Performing Location LABORATORY [facility] - [address] [place] [address]
--- OUTSIDE RECORDS SUMMARY | 2023-07-28 23:07 | External Medical Summary ---
Author Name Unknown Address Unknown Organization K1F:LABORATORY [facility] - [address] [place] [address] Laboratory Report Ordering Provider Test Date Status ZARA MAKI 06/09/2023 05:22:00 Final Observation Date Value Abnormality Reference (Units ) Status WBC, Total 06/09/2023 05:22:00 9.40 4.00-10.80 (K/uL) Final RBC 06/09/2023 05:22:00 2.94 3.85-5.15 (M/uL) Final Hemoglobin 06/09/2023 05:22:00 7.9 Below low normal 12.0-15.3 (g/dL) Final HCT 06/09/2023 05:22:00 27.3 Below low normal 36.0-45.2 (%) Final MCV 06/09/2023 05:22:00 92.9 81.5-97.5 (fL) Final MCH 06/09/2023 05:22:00 26.9 27.0-34.0 (pg) Final MCHC 06/09/2023 05:22:00 28.9 32.0-36.0 (g/dL) Final RDW 06/09/2023 05:22:00 18.6 11.5-15.5 (%) Final Platelets 06/09/2023 05:22:00 232 140-400 (K/uL) Final MPV 06/09/2023 05:22:00 12.1 6.6-11.1 (fL) Final Nucleated erythrocytes/100 leukocytes [Ratio] in Blood by Automated count 06/09/2023 05:22:00 0 <=0 (/100 WBCs) Final Performing Location LABORATORY [facility] - [address] [place] [address]
--- OUTSIDE RECORDS SUMMARY | 2023-07-28 23:07 | External Medical Summary ---
Author Name Unknown Address Unknown Organization K1F:LABORATORY [facility] - [address] [place] [address] Laboratory Report Ordering Provider Test Date Status ZARA MAKI 06/11/2023 06:03:00 Final Observation Date Value Abnormality Reference (Units ) Status WBC, Total 06/11/2023 06:03:00 8.86 4.00-10.80 (K/uL) Final RBC 06/11/2023 06:03:00 3.20 3.85-5.15 (M/uL) Final Hemoglobin 06/11/2023 06:03:00 8.8 Below low normal 12.0-15.3 (g/dL) Final HCT 06/11/2023 06:03:00 29.4 Below low normal 36.0-45.2 (%) Final MCV 06/11/2023 06:03:00 91.9 81.5-97.5 (fL) Final MCH 06/11/2023 06:03:00 27.5 27.0-34.0 (pg) Final MCHC 06/11/2023 06:03:00 29.9 32.0-36.0 (g/dL) Final RDW 06/11/2023 06:03:00 18.8 11.5-15.5 (%) Final Platelets 06/11/2023 06:03:00 235 140-400 (K/uL) Final MPV 06/11/2023 06:03:00 12.7 6.6-11.1 (fL) Final Nucleated erythrocytes/100 leukocytes [Ratio] in Blood by Automated count 06/11/2023 06:03:00 0 <=0 (/100 WBCs) Final Performing Location LABORATORY [facility] - [address] [place] [address]
--- OUTSIDE RECORDS SUMMARY | 2023-07-28 23:07 | External Medical Summary ---
Author Name Unknown Address Unknown Organization : Laboratory Report Ordering Provider Test Date Status STEPHANIE ALMARAZ 06/09/2023 21:18:01 Final Observation Date Value Abnormality Reference (Units ) Status Glucose Point of Care 06/09/2023 21:18:01 174 Above high normal 70-120 (mg/dL) Final Performing Location
--- OUTSIDE RECORDS SUMMARY | 2023-07-28 23:07 | External Medical Summary ---
Author Name Unknown Address Unknown Organization : Laboratory Report Ordering Provider Test Date Status ANTONIO ATKINS 06/06/2023 07:38:09 Final Observation Date Value Abnormality Reference (Units ) Status Glucose Point of Care 06/06/2023 07:38:09 123 Above high normal 70-120 (mg/dL) Final Performing Location
--- OUTSIDE RECORDS SUMMARY | 2023-07-28 23:07 | External Medical Summary ---
Author Name Unknown Address Unknown Organization K01:LABORATORY [facility] - [address] [facility] [place] [address] Laboratory Report Ordering Provider Test Date Status ZARA MAKI 06/06/2023 13:38:00 Final No anaerobic growth. Observation Date Value Abnormality Reference (Units ) Status Bacteria identified in Specimen by Culture 06/06/2023 13:38:00 [id number]^STAPHY LOCOCCUS AUREUS Abnormal Final From broth only Staphylococc us aureus Gram Stain 06/06/2023 13:38:00 No polymorphonuclear leukocyt es seen Final Gram Stain 06/06/2023 13:38:00 No organisms seen Final Performing Location LAB[facility]ATORY [facility] [address] [facility] [address] Ordering Provider Test Date Status ZARA MAKI 06/06/2023 13:38:00 Final Observation Date Value Abnormality Reference (Units ) Status Clindamycin 06/06/2023 13:38:00 <=0.25 Susceptible Final Erythromycin susceptibility 06/06/2023 13:38:00 <=0.25 Susceptible Final Oxacillinsusceptibility 06/06/2023 13:38:00 0.5 Susceptible Final Penicillin susceptibility 06/06/2023 13:38:00 Resistant Final Tetracyclinesusceptibility 06/06/2023 13:38:00 <=1 Susceptible Final TMP-SMZ susceptibility 06/06/2023 13:38:00 <=10 Susceptible Final Vancomycinsusceptibility 06/06/2023 13:38:00 <=0.5 Susceptible Final Test: Culture, Tissue, Aerob ic and Anaerobic
Specimen Source: Heel, Right
Specimen Type: Bone
Specimen Date: 06/06/2023 1:38 PM
Result Date: 06/11/2023 9:53 AM
Result Status: Final result
Abnormal: Yes
Resulting Lab: LABORATORY [facility]
[address] [facility]
[place] [address]

CULTURE

From broth only Staphylococcus aureus (Abnormal)

No anaerobic growth.

STAIN

No polymorphonuclear leukocytes seen

No organisms seen

SUSCEPTIBILITY

Staphylococcus
aureus
METHOD MICROBROTH
DILUTIONS

CLINDAMYCIN <=0.25 Susceptible
ERYTHROMYCIN <=0.25 Susceptible
OXACILLIN 0.5 Susceptible
PENICILLIN G -- Resistant
TETRACYCLINE <=1 Susceptible
TRIMETH/SULFAMETHOXAZOLE <=10 Susceptible
VANCOMYCIN <=0.5 Susceptible

null Performing Location LABORATORY [facility] - [address] [facility] [address] [facility] [address]
--- OUTSIDE RECORDS SUMMARY | 2023-07-28 23:07 | External Medical Summary ---
Author Name Unknown Address Unknown Organization : Laboratory Report Ordering Provider Test Date Status AILEEN KIDD 06/12/2023 21:27:20 Final Observation Date Value Abnormality Reference (Units ) Status Glucose Point of Care 06/12/2023 21:27:20 179 Above high normal 70-120 (mg/dL) Final Performing Location
--- OUTSIDE RECORDS SUMMARY | 2023-07-28 23:07 | External Medical Summary ---
Author Name Unknown Address Unknown Organization : Laboratory Report Ordering Provider Test Date Status ANTONIO ATKINS 06/06/2023 11:37:26 Final Observation Date Value Abnormality Reference (Units ) Status Glucose Point of Care 06/06/2023 11:37:26 112 70-120 (mg/dL) Final Performing Location
--- OUTSIDE RECORDS SUMMARY | 2023-07-28 23:07 | External Medical Summary ---
Author Name Unknown Address Unknown Organization K1F:LABORATORY [facility] - [address] [place] [address] Laboratory Report Ordering Provider Test Date Status ZARA MAKI 06/11/2023 06:03:00 Final Observation Date Value Abnormality Reference (Units ) Status BUN 06/11/2023 06:03:00 29 Above high normal 6-20 (mg/dL) Final Creatinine 06/11/2023 06:03:00 1.9 Above high normal 0.5-1.0 (mg/dL) Final Glomerular filtration rate/1.73 sq M.predicted [Volume Rate/Area] in Serum, Plasma or Blood by Creatinine-based formula (CKD-EPI) 06/11/2023 06:03:00 29 Below low normal >=60 (mL/min) Final eGFR is calculated based on the CKD-EPI 2020 equation Sodium 06/11/2023 06:03:00 138 135-146 (m mol/L) Final Potassium 06/11/2023 06:03:00 3.6 3.5-5.1 (m mol/L) Final Cl 06/11/2023 06:03:00 104 98-107 (mm ol/L) Final CO2 06/11/2023 06:03:00 25 22-32 (mmo l/L) Final Anion gap 06/11/2023 06:03:00 9 7-15 (mmol /L) Final Glucose 06/11/2023 06:03:00 138 Above high normal 70 -120 (mg/dL) Final Calcium 06/11/2023 06:03:00 8.8 8.4-10.2 ( mg/dL) Final Performing Location LABORATORY [facility] - [address] [place] [address]
--- OUTSIDE RECORDS SUMMARY | 2023-07-28 23:07 | External Medical Summary ---
Author Name Unknown Address Unknown Organization K1F:LABORATORY [facility] - [address] [place] [address] Laboratory Report Ordering Provider Test Date Status ZARA MAKI 06/10/2023 05:44:00 Final Observation Date Value Abnormality Reference (Units ) Status WBC, Total 06/10/2023 05:44:00 8.70 4.00-10.80 (K/uL) Final RBC 06/10/2023 05:44:00 2.98 3.85-5.15 (M/uL) Final Hemoglobin 06/10/2023 05:44:00 8.3 Below low normal 12.0-15.3 (g/dL) Final HCT 06/10/2023 05:44:00 27.4 Below low normal 36.0-45.2 (%) Final MCV 06/10/2023 05:44:00 91.9 81.5-97.5 (fL) Final MCH 06/10/2023 05:44:00 27.9 27.0-34.0 (pg) Final MCHC 06/10/2023 05:44:00 30.3 32.0-36.0 (g/dL) Final RDW 06/10/2023 05:44:00 18.6 11.5-15.5 (%) Final Platelets 06/10/2023 05:44:00 235 140-400 (K/uL) Final MPV 06/10/2023 05:44:00 12.6 6.6-11.1 (fL) Final Nucleated erythrocytes/100 leukocytes [Ratio] in Blood by Automated count 06/10/2023 05:44:00 0 <=0 (/100 WBCs) Final Performing Location LABORATORY [facility] - [address] [place] [address]
--- OUTSIDE RECORDS SUMMARY | 2023-07-28 23:07 | External Medical Summary ---
Author Name Unknown Address Unknown Organization : Laboratory Report Ordering Provider Test Date Status REN FARRIS 06/07/2023 17:11:28 Final Observation Date Value Abnormality Reference (Units ) Status Glucose Point of Care 06/07/2023 17:11:28 156 Above high normal 70-120 (mg/dL) Final Performing Location
--- OUTSIDE RECORDS SUMMARY | 2023-07-28 23:07 | External Medical Summary ---
Author Name Unknown Address Unknown Organization : Laboratory Report Ordering Provider Test Date Status REN FARRIS 06/12/2023 08:11:28 Final Observation Date Value Abnormality Reference (Units ) Status Glucose Point of Care 06/12/2023 08:11:28 155 Above high normal 70-120 (mg/dL) Final Performing Location
--- OUTSIDE RECORDS SUMMARY | 2023-07-28 23:07 | External Medical Summary ---
Author Name Unknown Address Unknown Organization : Laboratory Report Ordering Provider Test Date Status REN FARRIS 06/11/2023 08:03:12 Final Observation Date Value Abnormality Reference (Units ) Status Glucose Point of Care 06/11/2023 08:03:12 123 Above high normal 70-120 (mg/dL) Final Performing Location
--- OUTSIDE RECORDS SUMMARY | 2023-07-28 23:07 | External Medical Summary ---
Author Name Unknown Address Unknown Organization : Laboratory Report Ordering Provider Test Date Status REN FARRIS 06/08/2023 16:35:22 Final Observation Date Value Abnormality Reference (Units ) Status Glucose Point of Care 06/08/2023 16:35:22 161 Above high normal 70-120 (mg/dL) Final Performing Location
--- OUTSIDE RECORDS SUMMARY | 2023-07-28 23:07 | External Medical Summary ---
Author Name Unknown Address Unknown Organization : Laboratory Report Ordering Provider Test Date Status REN FARRIS 06/07/2023 07:45:02 Final Observation Date Value Abnormality Reference (Units ) Status Glucose Point of Care 06/07/2023 07:45:02 133 Above high normal 70-120 (mg/dL) Final Performing Location
--- OUTSIDE RECORDS SUMMARY | 2023-07-28 23:07 | External Medical Summary ---
Author Name Unknown Address Unknown Organization : Laboratory Report Ordering Provider Test Date Status REN FARRIS 06/07/2023 11:53:01 Final Observation Date Value Abnormality Reference (Units ) Status Glucose Point of Care 06/07/2023 11:53:01 169 Above high normal 70-120 (mg/dL) Final Performing Location
--- OUTSIDE RECORDS SUMMARY | 2023-07-28 23:07 | External Medical Summary ---
Author Name Unknown Address Unknown Organization K1F:LABORATORY [facility] - [address] [place] [address] Laboratory Report Ordering Provider Test Date Status ZARA MAKI 06/07/2023 05:38:00 Final Observation Date Value Abnormality Reference (Units ) Status BUN 06/07/2023 05:38:00 35 Above high normal 6-20 (mg/dL) Final Creatinine 06/07/2023 05:38:00 2.2 Above high normal 0.5-1.0 (mg/dL) Final Glomerular filtration rate/1.73 sq M.predicted [Volume Rate/Area] in Serum, Plasma or Blood by Creatinine-based formula (CKD-EPI) 06/07/2023 05:38:00 25 Below low normal >=60 (mL/min) Final eGFR is calculated based on the CKD-EPI 2020 equation Sodium 06/07/2023 05:38:00 138 135-146 (m mol/L) Final Potassium 06/07/2023 05:38:00 3.9 3.5-5.1 (m mol/L) Final Cl 06/07/2023 05:38:00 105 98-107 (mm ol/L) Final CO2 06/07/2023 05:38:00 21 Below low normal 22- 32 (mmol/L) Final Anion gap 06/07/2023 05:38:00 12 7-15 (mmol /L) Final Glucose 06/07/2023 05:38:00 148 Above high normal 70 -120 (mg/dL) Final Calcium 06/07/2023 05:38:00 8.5 8.4-10.2 ( mg/dL) Final Performing Location LABORATORY [facility] - [address] [place] [address]
--- OUTSIDE RECORDS SUMMARY | 2023-07-28 23:07 | External Medical Summary ---
Author Name Unknown Address Unknown Organization : Laboratory Report Ordering Provider Test Date Status REN FARRIS 06/11/2023 12:05:07 Final Observation Date Value Abnormality Reference (Units ) Status Glucose Point of Care 06/11/2023 12:05:07 176 Above high normal 70-120 (mg/dL) Final Performing Location
--- OUTSIDE RECORDS SUMMARY | 2023-07-28 23:07 | External Medical Summary ---
Author Name Unknown Address Unknown Organization : Laboratory Report Ordering Provider Test Date Status REN FARRIS 06/08/2023 21:33:12 Final Observation Date Value Abnormality Reference (Units ) Status Glucose Point of Care 06/08/2023 21:33:12 200 Above high normal 70-120 (mg/dL) Final Performing Location
--- OUTSIDE RECORDS SUMMARY | 2023-07-28 23:07 | External Medical Summary ---
Author Name Unknown Address Unknown Organization : Laboratory Report Ordering Provider Test Date Status REN FARRIS 06/08/2023 07:13:57 Final Observation Date Value Abnormality Reference (Units ) Status Glucose Point of Care 06/08/2023 07:13:57 143 Above high normal 70-120 (mg/dL) Final Performing Location
--- OUTSIDE RECORDS SUMMARY | 2023-07-28 23:07 | External Medical Summary ---
Author Name Unknown Address Unknown Organization : Laboratory Report Ordering Provider Test Date Status REN FARRIS 06/12/2023 16:49:30 Final Observation Date Value Abnormality Reference (Units ) Status Glucose Point of Care 06/12/2023 16:49:30 195 Above high normal 70-120 (mg/dL) Final Performing Location
--- OUTSIDE RECORDS SUMMARY | 2023-07-28 23:08 | External Medical Summary ---
Author Name Unknown Address Unknown Organization : Laboratory Report Ordering Provider Test Date Status NICK CERRATO 06/03/2023 17:00:49 Final Observation Date Value Abnormality Reference (Units ) Status Glucose Point of Care 06/03/2023 17:00:49 111 70-120 (mg/dL) Final Performing Location
--- OUTSIDE RECORDS SUMMARY | 2023-07-28 23:08 | External Medical Summary ---
Author Name Unknown Address Unknown Organization K1F:LABORATORY [facility] - [address] [place] [address] Laboratory Report Ordering Provider Test Date Status SERGEY TRINH 06/04/2023 05:58:00 Final Warfarin Therapy
INR: 2 .0-3.0 conventional anticoagulation
INR: 2.5- 3.5 high intensity anticoagulation Observation Date Value Abnormality Reference (Units ) Status PT 06/04/2023 05:58:00 15.9 Above high normal 11 .6-15.2 (seconds) Final INR 06/04/2023 05:58:00 1.3 Above high normal 0. 8-1.2 Final Performing Location LABORATORY [facility] - [address] [place] [address]
--- OUTSIDE RECORDS SUMMARY | 2023-07-28 23:08 | External Medical Summary ---
Author Name Unknown Address Unknown Organization : Laboratory Report Ordering Provider Test Date Status REN FARRIS 06/05/2023 21:21:30 Final Observation Date Value Abnormality Reference (Units ) Status Glucose Point of Care 06/05/2023 21:21:30 166 Above high normal 70-120 (mg/dL) Final Performing Location
--- OUTSIDE RECORDS SUMMARY | 2023-07-28 23:08 | External Medical Summary ---
Author Name Unknown Address Unknown Organization K1F:LABORATORY [facility] - [address] [place] [address] Laboratory Report Ordering Provider Test Date Status KEDAR TRINHOY 06/03/2023 08:37:00 Final Observation Date Value Abnormality Reference (Units ) Status Troponin T 06/03/2023 08:37:00 113 Above upper panic limits <=14 (ng/L) Final Performing Location LABORATORY [facility] - [address] [place] [address]
--- OUTSIDE RECORDS SUMMARY | 2023-07-28 23:08 | External Medical Summary ---
Author Name Unknown Address Unknown Organization K1F:LABORATORY [facility] - [address] [place] [address] Laboratory Report Ordering Provider Test Date Status REN FARRIS 06/06/2023 05:32:00 Final Observation Date Value Abnormality Reference (Units ) Status BUN 06/06/2023 05:32:00 38 Above high normal 6-20 (mg/dL) Final Creatinine 06/06/2023 05:32:00 2.3 Above high normal 0.5-1.0 (mg/dL) Final Glomerular filtration rate/1.73 sq M.predicted [Volume Rate/Area] in Serum, Plasma or Blood by Creatinine-based formula (CKD-EPI) 06/06/2023 05:32:00 23 Below low normal >=60 (mL/min) Final eGFR is calculated based on the CKD-EPI 2020 equation Sodium 06/06/2023 05:32:00 137 135-146 (m mol/L) Final Potassium 06/06/2023 05:32:00 4.1 3.5-5.1 (m mol/L) Final Cl 06/06/2023 05:32:00 106 98-107 (mm ol/L) Final CO2 06/06/2023 05:32:00 21 Below low normal 22- 32 (mmol/L) Final Anion gap 06/06/2023 05:32:00 10 7-15 (mmol /L) Final Glucose 06/06/2023 05:32:00 129 Above high normal 70 -120 (mg/dL) Final Calcium 06/06/2023 05:32:00 8.6 8.4-10.2 ( mg/dL) Final Performing Location LABORATORY [facility] - [address] [place] [address]
--- OUTSIDE RECORDS SUMMARY | 2023-07-28 23:08 | External Medical Summary ---
Author Name Unknown Address Unknown Organization K01:[place] [facility] [place] [address] [place] [address] Laboratory Report Ordering Provider Test Date Status SERGEY TRINH 06/06/2023 00:18:11 Final Observation Date Value Abnormality Reference (Units) Status Bacteria identified in Specimen by Culture 06/06/2023 00:18:11 Multiple genevieve suggests contamination or colonization Final Test: Culture, Urine, Quanti tative
Specimen Source: Urine, Clean Catch
Specimen Type: Urine
Specimen Date: 06/06/2023 12:18 AM
Result Date: 06/08/2023 8:36 AM
Result Status: Final result
Resulting Lab: [facility] [place]
[address]
[place] [address]

CULTURE

Multiple genevieve suggests contamination or colonization

null Performing Location [place] [facility] [place] [address] [facility] [address]
--- OUTSIDE RECORDS SUMMARY | 2023-07-28 23:08 | External Medical Summary ---
Author Name Unknown Address Unknown Organization K1F:LABORATORY [facility] - [address] [place] [address] Laboratory Report Ordering Provider Test Date Status REN FARRIS 06/06/2023 05:32:00 Final Observation Date Value Abnormality Reference (Units ) Status WBC, Total 06/06/2023 05:32:00 8.00 4.00-10.80 (K/uL) Final RBC 06/06/2023 05:32:00 2.92 3.85-5.15 (M/uL) Final Hemoglobin 06/06/2023 05:32:00 7.9 Below low normal 12.0-15.3 (g/dL) Final HCT 06/06/2023 05:32:00 27.0 Below low normal 36.0-45.2 (%) Final MCV 06/06/2023 05:32:00 92.5 81.5-97.5 (fL) Final MCH 06/06/2023 05:32:00 27.1 27.0-34.0 (pg) Final MCHC 06/06/2023 05:32:00 29.3 32.0-36.0 (g/dL) Final RDW 06/06/2023 05:32:00 18.6 11.5-15.5 (%) Final Platelets 06/06/2023 05:32:00 252 140-400 (K/uL) Final MPV 06/06/2023 05:32:00 12.1 6.6-11.1 (fL) Final Nucleated erythrocytes/100 leukocytes [Ratio] in Blood by Automated count 06/06/2023 05:32:00 0 <=0 (/100 WBCs) Final Performing Location LABORATORY [facility] - [address] [place] [address]
--- OUTSIDE RECORDS SUMMARY | 2023-07-28 23:08 | External Medical Summary ---
Author Name Unknown Address Unknown Organization : Laboratory Report Ordering Provider Test Date Status REN FARRIS 06/05/2023 07:25:35 Final Observation Date Value Abnormality Reference (Units ) Status Glucose Point of Care 06/05/2023 07:25:35 125 Above high normal 70-120 (mg/dL) Final Performing Location
--- OUTSIDE RECORDS SUMMARY | 2023-07-28 23:08 | External Medical Summary ---
Author Name Unknown Address Unknown Organization K1F:LABORATORY [facility] - [address] [place] [address] Laboratory Report Ordering Provider Test Date Status NICK CERRATO 06/05/2023 05:57:00 Final Observation Date Value Abnormality Reference (Units ) Status BUN 06/05/2023 05:57:00 39 Above high normal 6-20 (mg/dL) Final Creatinine 06/05/2023 05:57:00 2.2 Above high normal 0.5-1.0 (mg/dL) Final Glomerular filtration rate/1.73 sq M.predicted [Volume Rate/Area] in Serum, Plasma or Blood by Creatinine-based formula (CKD-EPI) 06/05/2023 05:57:00 24 Below low normal >=60 (mL/min) Final eGFR is calculated based on the CKD-EPI 2020 equation Sodium 06/05/2023 05:57:00 138 135-146 (m mol/L) Final Potassium 06/05/2023 05:57:00 4.5 3.5-5.1 (m mol/L) Final Cl 06/05/2023 05:57:00 106 98-107 (mm ol/L) Final CO2 06/05/2023 05:57:00 22 22-32 (mmo l/L) Final Anion gap 06/05/2023 05:57:00 10 7-15 (mmol /L) Final Glucose 06/05/2023 05:57:00 133 Above high normal 70 -120 (mg/dL) Final Calcium 06/05/2023 05:57:00 8.7 8.4-10.2 ( mg/dL) Final Performing Location LABORATORY [facility] - [address] [place] [address]
--- OUTSIDE RECORDS SUMMARY | 2023-07-28 23:08 | External Medical Summary ---
Author Name Unknown Address Unknown Organization : Laboratory Report Ordering Provider Test Date Status REN FARRIS 06/05/2023 11:44:18 Final Observation Date Value Abnormality Reference (Units ) Status Glucose Point of Care 06/05/2023 11:44:18 154 Above high normal 70-120 (mg/dL) Final Performing Location
--- OUTSIDE RECORDS SUMMARY | 2023-07-28 23:08 | External Medical Summary ---
Author Name Unknown Address Unknown Organization : Laboratory Report Ordering Provider Test Date Status REN FARRIS 06/05/2023 16:20:38 Final Observation Date Value Abnormality Reference (Units ) Status Glucose Point of Care 06/05/2023 16:20:38 141 Above high normal 70-120 (mg/dL) Final Performing Location
--- OUTSIDE RECORDS SUMMARY | 2023-07-28 23:08 | External Medical Summary | Summary of Care ---
Author Name Unknown Organization [facility] Address [address] [place] [address] Phone [phone] Care Team Providers Care Sales Marketing Manager Name Role Phone Natali Langston Primary Care Provider Reason for Visit * Auth/Cert Specialty Diagnoses / Procedures Referred By Contac t Referred To Contact [facility] [address] [place] [address] Phone: [phone] Emergency Medicine [facility] [address] [place] [address] Referral ID Status Reason Start Date Expiration Date Visits Re quested Visits Authorized [id number] Encounter Details Date Type Department Care Team (Latest Contact Info) Description 06/04/2023 3:47 PM EDT - 06/04/2023 11:59 PM EDT Hospital Encounter Cardiac Studies, [address] [address] Discharge Disposition: Home - Self Care Allergies Active Allergy Reactions Criticality Noted Date Comments Amoxicillin 06/26/2014 Clarithromycin High 01/16/2023 Other Reaction(s): HEART RACES Palpitations Dextromethorphan High 01/16/2023 Other Reaction(s): Hives Doxylamine High 01/16/2023 Other Reaction(s): Hives Latex 06/18/2014 Dksllqlfh-Eccasxijpx-Gl-Ap ap Edema face/lips/tongue,It katie High 11/11/2010 Sulfa Antibiotics 08/03/2000 rash, malaise documented as of this encounter (statuses as of 06/05/2023) Medications Medication Sig Dispensed Refills Start Date End Date Status OMEPRAZOLE 20 MG PO CPDR 1 tablet daily 0 Suspended LEVOXYL 175 MCG OR TABS 1 tablet daily 0 Suspended RANITIDINE HCL 150 MG PO CAPS 2 tablets daily 0 Suspended GLUCOPHAGE 500 MG PO TABS 2 tablets daily 0 Suspended HUMULIN R 100 UNIT/ML IJ SOLN 60 units twice daily 0 Suspended SIMVASTATIN 40 MG PO TABS 1 tablet daily 0 Suspended LISINOPRIL 2.5 MG PO TABS 1 tablet daily 0 Suspended levothyroxine sodium (SYNTHROID) 112 MCG Tablet 0 Suspended documented as of this encounter (statuses as of 06/05/2023) Active Problems Problem Noted Date Diagnosed Date Acute on chronic congestive heart failure 2023 Mitral valve insufficiency 06/03/2023 Moderate tricuspid regurgitation 06/03/2023 Moderate pulmonary hypertension 06/03/2023 AV junctional rhythm 06/03/2023 Chronic kidney disease, stage IV (severe) 2023 Class 3 severe obesity in adult 06/03/2023 Type 1 diabetes mellitus wit h hemoglobin A1c goal of less than 7.0% 06/18/2014 Overview: ICD-10 update of inactive term Hypertension 06/18/2014 Hypothyroid 06/18/2014 documented as of this encounter (statuses as of 06/05/2023) Immunizations Name Administration Dates Next Due PPD [...] as of this encounter Miscellaneous Notes * Ancillary Progress Note - Theo Ledezma TECH - 06/04/2023 3:50 PM EDT Echo completed today. documented in this encounter Plan of Treatment Upcoming Encounters Date Type Department Care Team (Late st Contact Info) Description 06/06/2023 3:22 PM EDT - 06/06/2023 4:34 PM EDT Surgery OR [facility], Operating Room, [facility] - 4th Floor [address] [address] Lynnette Rasmussen DPM [address] [place] [address] BIOPSY BONE NEEDLE SUPERFICIAL 07/11/2023 10:00 AM EDT Office Visit Cardiology[facility] [address] [address] Aneta Ornelas PA-C [address] [address] Scheduled Procedures Name Priority Associated Diagnoses Date/Ti me BIOPSY BONE NEEDLE SUPERFICIAL Osteomyelitis (HCC) 06/06/2023 3:22 PM EDT Health Maintenance Due Date Last Done Comments DISCUSS TOBACCO CESSATION (REFER TO SMARTSET #8772) 1960 Depression Screening 1972 HIV Screening 1975 Diabetic Eye Exam 1978 Diabetic Foot Exam 1978 HPV/Co-Test 1990 Mammogram 2000 Cologuard 2005 [...] 2001, 07/09/2000, Additional history exists COVID-19 Vaccine ( - season) 2022 08/24/2020 Influenza Vaccine (FLU shot) (#1) 2022 12/18/2017, 10/24/2016, 01/11/2016, Additional history exists Zoster Vaccines (2 of 2) 06/15/2023 04/20/2023 Lipid Panel 11/20/2023 11/19/2018, 01/10, 01/14/2001, Additional history exists HbA1c 12/03/2023 06/02/2023, 11/10, 01/22/2018, Additional history exists GFR 12/06/2023 06/05/2023, 05/11, 06/02/2023, Additional history exists TSH 06/01/2024 06/02/2023, 11/10, [...] Procedure Name Priority Date/Time Associated Diagnosis Comments ECHO, COMPLETE (2D), TRANS-THORACIC Routine 06/04/2023 4:16 PM EDT Heart failure (HCC) documented in this encounter Visit Diagnoses Diagnosis AV junctional rhythm- Primary Other specified cardiac dysrhythmias Mild pulmonary hypertension (HCC) Other chronic pulmonary heart diseases Moderate tricuspid regurgitation Diseases of tricuspid valve Mitral valve insufficiency, unspecified etiology Class 3 severe obesity in adult, unspecified BMI, unspecified obesity type, unspecified whether serious comorbidity present (HCC) Osteomyelitis (HCC) Unspecified osteomyelitis, site unspecified documented in this encounter Administered Medications Inactive Administered Medications - up to 3 most recent administrations Medication Order MAR Action Action Date Dose Rate Site perflutren lipid microsphere inj SUSP 1.956 mg 1.956 mg, Intravenous, ONCE PRN Other, For Echo Only - Suboptimal Echo Images, Starting on 06/04/23 at 1548, Until Sun06/04/23 at 1747, For 2 hours, Administer IVP over 45 seconds, Cardiac Studies_HODHOV Given 06/04/2023 4:15 PM EDT 1.956 mg documented in this encounter Advance Directives Latest Code Status on File Code Status Date Activated Date Inactivated Comments Full Code 06/03/2023 2:50 AM This order reflects the patients wishes and were consensually agreed upon. Question Answer Comments Discussion of Advance Directives occurred with: Patient Care Teams Sales Marketing Manager Relationship Specialty Start Date End Date Natali Langston DO [address] [place] [address] Dr [address] [place] [address] PCP - General Family Medicine 06/18/14 documented as of this encounter
--- OUTSIDE RECORDS SUMMARY | 2023-07-28 23:08 | External Medical Summary ---
Author Name Unknown Address Unknown Organization K1F:LABORATORY [facility] - [address] [place] [address] Laboratory Report Ordering Provider Test Date Status SERGEY TRINH 06/04/2023 05:58:00 Final Observation Date Value Abnormality Reference (Units ) Status WBC, Total 06/04/2023 05:58:00 7.72 4.00-10.80 (K/uL) Final RBC 06/04/2023 05:58:00 2.86 3.85-5.15 (M/uL) Final Hemoglobin 06/04/2023 05:58:00 7.8 Below low normal 12.0-15.3 (g/dL) Final HCT 06/04/2023 05:58:00 26.2 Below low normal 36.0-45.2 (%) Final MCV 06/04/2023 05:58:00 91.6 81.5-97.5 (fL) Final MCH 06/04/2023 05:58:00 27.3 27.0-34.0 (pg) Final MCHC 06/04/2023 05:58:00 29.8 32.0-36.0 (g/dL) Final RDW 06/04/2023 05:58:00 18.7 11.5-15.5 (%) Final Platelets 06/04/2023 05:58:00 267 140-400 (K/uL) Final MPV 06/04/2023 05:58:00 12.0 6.6-11.1 (fL) Final Nucleated erythrocytes/100 leukocytes [Ratio] in Blood by Automated count 06/04/2023 05:58:00 0 <=0 (/100 WBCs) Final Performing Location LABORATORY [facility] - [address] [place] [address]
--- OUTSIDE RECORDS SUMMARY | 2023-07-28 23:08 | External Medical Summary ---
Author Name Unknown Address Unknown Organization : Laboratory Report Ordering Provider Test Date Status NICK CERRATO 06/03/2023 21:43:03 Final Observation Date Value Abnormality Reference (Units ) Status Glucose Point of Care 06/03/2023 21:43:03 104 70-120 (mg/dL) Final Performing Location
--- OUTSIDE RECORDS SUMMARY | 2023-07-28 23:08 | External Medical Summary ---
Author Name Unknown Address Unknown Organization : Laboratory Report Ordering Provider Test Date Status NICK CERRATO 06/04/2023 07:39:01 Final Observation Date Value Abnormality Reference (Units ) Status Glucose Point of Care 06/04/2023 07:39:01 111 70-120 (mg/dL) Final Performing Location
--- OUTSIDE RECORDS SUMMARY | 2023-07-28 23:08 | External Medical Summary ---
Author Name Unknown Address Unknown Organization : Laboratory Report Ordering Provider Test Date Status NICK CERRATO 06/04/2023 21:26:57 Final Observation Date Value Abnormality Reference (Units ) Status Glucose Point of Care 06/04/2023 21:26:57 141 Above high normal 70-120 (mg/dL) Final Performing Location
--- OUTSIDE RECORDS SUMMARY | 2023-07-28 23:08 | External Medical Summary | Summary of Care ---
Author Name Unknown Organization [facility] Address [address] [place] [address] Phone [phone] Care Team Providers Care Sponsorship Manager Name Role Phone Natali Langston Primary Care Provider Encounter Details Date Type Department Care Team (Late st Contact Info) Description 06/04/2023 Orders Only PATIENT PORTAL DO NOT DELETE THIS DEPT USED BY [address] MCGHEE [id number] Allergies Active Allergy Reactions Criticality Noted Date Comments Amoxicillin 06/26/2014 Clarithromycin High 01/16/2023 Other Reaction(s): HEART RACES Palpitations Dextromethorphan High 01/16/2023 Other Reaction(s): Hives Doxylamine High 01/16/2023 Other Reaction(s): Hives Latex 06/18/2014 Tfvglzyog-Jzhzjoejqm-Yf-Ap ap Edema face/lips/tongue,It katie High 11/11/2010 Sulfa Antibiotics 08/03/2000 rash, malaise documented as of this encounter (statuses as of 06/04/2023) Medications Medication Sig Dispensed Refills Start Date [...] as of this encounter (statuses as of 06/04/2023) Active Problems Problem Noted Date Diagnosed Date Acute on chronic congestive heart failure 2023 Mitral valve insufficiency 06/03/2023 Moderate tricuspid regurgitation 06/03/2023 Mild pulmonary hypertension 06/03/2023 AV junctional rhythm 06/03/2023 Chronic kidney disease, stage IV (severe) 2023 Class 3 severe obesity in adult 06/03/2023 Type 1 diabetes mellitus wit h hemoglobin A1c goal of less than 7.0% 06/18/2014 Overview: ICD-10 update of inactive term Hypertension 06/18/2014 Hypothyroid 06/18/2014 documented as of this encounter (statuses as of 06/04/2023) Immunizations Name Administration Dates Next Due PPD [...] No 06/03/2023 documented as of this encounter Plan of Treatment Upcoming Encounters Date Type Department Care Team (Late st Contact Info) Description 07/11/2023 10:00 AM EDT Office Visit Cardiology, [facility] [address] [address] Aneta Ornelas PA-C [address] [address] Health Maintenance Due Date Last Done Comments DISCUSS TOBACCO CESSATION (REFER TO SMARTSET #5206) 1960 Depression Screening 1972 HIV Screening 1975 [...] COVID-19 Vaccine (2 - season) 2022 08/24/2020 Influenza Vaccine (FLU shot) (#1) 2022 12/18/2017, 10/24/2016, 01/11/2016, Additional history exists Zoster Vaccines (2 of 2) 06/15/2023 04/20/2023 Lipid Panel 11/20/2023 11/19/2018, 01/10, 01/14/2001, Additional history exists HbA1c 12/03/2023 06/02/2023, 11/10, 01/22/2018, Additional history exists GFR 12/05/2023 06/04/2023, 05/11, 06/01/2023, Additional history exists TSH 06/01/2024 06/02/2023, 11/10, [...] Advance Directives occurred with: Patient Care Teams Sponsorship Manager Relationship Specialty Start Date End Date Natali Langston DO [address] [place] [address], [place] [address] PCP - General Family Medicine 06/18/14 documented as of this encounter
--- OUTSIDE RECORDS SUMMARY | 2023-07-28 23:08 | External Medical Summary ---
Author Name Unknown Address Unknown Organization K1F:LABORATORY [facility] - [address] [place] [address] Laboratory Report Ordering Provider Test Date Status SERGEY TRINH 06/04/2023 05:57:00 Final Observation Date Value Abnormality Reference (Units ) Status Magnesium 06/04/2023 05:57:00 1.9 1.5-2.6 (m g/dL) Final Performing Location LABORATORY [facility] - [address] [place] [address]
--- OUTSIDE RECORDS SUMMARY | 2023-07-28 23:08 | External Medical Summary ---
Author Name Unknown Address Unknown Organization : Laboratory Report Ordering Provider Test Date Status NICK CERRATO 06/04/2023 16:21:06 Final Observation Date Value Abnormality Reference (Units ) Status Glucose Point of Care 06/04/2023 16:21:06 160 Above high normal 70-120 (mg/dL) Final Performing Location
--- OUTSIDE RECORDS SUMMARY | 2023-07-28 23:08 | External Medical Summary ---
Author Name Unknown Address Unknown Organization : Laboratory Report Ordering Provider Test Date Status NICK CERRATO 06/03/2023 11:46:30 Final Observation Date Value Abnormality Reference (Units ) Status Glucose Point of Care 06/03/2023 11:46:30 98 70-120 (mg/dL) Final Performing Location
--- OUTSIDE RECORDS SUMMARY | 2023-07-28 23:08 | External Medical Summary ---
Author Name Unknown Address Unknown Organization K1F:LABORATORY [facility] [place] [place] [place] [address] Laboratory Report Ordering Provider Test Date Status NICK CERRATO 06/05/2023 05:57:00 Final Observation Date Value Abnormality Reference (Units ) Status WBC, Total 06/05/2023 05:57:00 8.22 4.00-10.80 (K/uL) Final RBC 06/05/2023 05:57:00 2.82 3.85-5.15 (M/uL) Final Hemoglobin 06/05/2023 05:57:00 8.1 Below low normal 12.0-15.3 (g/dL) Final HCT 06/05/2023 05:57:00 26.1 Below low normal 36.0-45.2 (%) Final MCV 06/05/2023 05:57:00 92.6 81.5-97.5 (fL) Final MCH 06/05/2023 05:57:00 28.7 27.0-34.0 (pg) Final MCHC 06/05/2023 05:57:00 31.0 32.0-36.0 (g/dL) Final RDW 06/05/2023 05:57:00 18.6 11.5-15.5 (%) Final Platelets 06/05/2023 05:57:00 298 140-400 (K/uL) Final MPV 06/05/2023 05:57:00 12.1 6.6-11.1 (fL) Final Nucleated erythrocytes/100 leukocytes [Ratio] in Blood by Automated count 06/05/2023 05:57:00 0 <=0 (/100 WBCs) Final Performing Location LABORATORY [facility] - [address] [place] [address]
--- OUTSIDE RECORDS SUMMARY | 2023-07-28 23:08 | External Medical Summary ---
Author Name Unknown Address Unknown Organization K1F:LABORATORY [facility] - [address] [place] [address] Laboratory Report Ordering Provider Test Date Status SERGEY TRINH 06/04/2023 05:57:00 Final Observation Date Value Abnormality Reference (Units ) Status BUN 06/04/2023 05:57:00 37 Above high normal 6-20 (mg/dL) Final Creatinine 06/04/2023 05:57:00 2.1 Above high normal 0.5-1.0 (mg/dL) Final Glomerular filtration rate/1.73 sq M.predicted [Volume Rate/Area] in Serum, Plasma or Blood by Creatinine-based formula (CKD-EPI) 06/04/2023 05:57:00 26 Below low normal >=60 (mL/min) Final eGFR is calculated based on the CKD-EPI 2020 equation Sodium 06/04/2023 05:57:00 139 135-146 (m mol/L) Final Potassium 06/04/2023 05:57:00 4.3 3.5-5.1 (m mol/L) Final Cl 06/04/2023 05:57:00 106 98-107 (mm ol/L) Final CO2 06/04/2023 05:57:00 21 Below low normal 22- 32 (mmol/L) Final Anion gap 06/04/2023 05:57:00 12 7-15 (mmol /L) Final Glucose 06/04/2023 05:57:00 130 Above high normal 70 -120 (mg/dL) Final Albumin 06/04/2023 05:57:00 2.2 Below low normal 3.8 -5.0 (g/dL) Final AST (Aspartate aminotransferase) 06/04/2023 05:57:00 53 Above high normal 10-35 (U/L) Final Alk Phos 06/04/2023 05:57:00 408 Above high normal 35 -130 (U/L) Final Bilirubin, Total 06/04/2023 05:57:00 0.2 <=1 .2 (mg/dL) Final Calcium 06/04/2023 05:57:00 8.7 8.4-10.2 ( mg/dL) Final Protein 06/04/2023 05:57:00 6.3 6.0-8.3 (g /dL) Final ALT (Alanine aminotransferase) 06/04/2023 05:57:00 20 10-35 (U/L) Dante paris Performing Location LABORATORY [facility] - [address] [place], [place] [address] [place] [address]
--- OUTSIDE RECORDS SUMMARY | 2023-07-28 23:09 | External Medical Summary ---
Author Name Unknown Address Unknown Organization K1F:LABORATORY [facility] - [address] [place] [address] Laboratory Report Ordering Provider Test Date Status HAMLET ALVAREZ 06/02/2023 18:43:03 Final Observation Date Value Abnormality Reference (Units ) Status Troponin T 06/02/2023 18:43:03 109 Above upper panic limits <=14 (ng/L) Final Performing Location LABORATORY [facility] - [address] [place] [address]
--- OUTSIDE RECORDS SUMMARY | 2023-07-28 23:09 | External Medical Summary ---
Author Name Unknown Address Unknown Organization K01:LABORATORY [facility] [place] - [address] [facility] [address] Laboratory Report Ordering Provider Test Date Status SERGEY TRINH 06/02/2023 18:43:03 Final Observation Date Value Abnormality Reference (Units ) Status HbA1C 06/02/2023 18:43:03 6.9 Above high normal 4. 0-5.6 (%) Final The use of HbA1c to monitor glycemic status is based on normal hemoglobin and HbA composition. This test should not be used in patients with abnormal hemoglobin that affects the half life of the red blood cell or the in vivo glycation rates. Glucose, estimated average 06/02/2023 18:43:03 151 Above high normal <126 (mg/dL) Dante paris Performing Location LABORATORY [facility] [place] - [address] [facility] [address] [facility] [address]
--- OUTSIDE RECORDS SUMMARY | 2023-07-28 23:09 | External Medical Summary ---
Author Name Unknown Address Unknown Organization : Laboratory Report Ordering Provider Test Date Status NICK CERRATO 06/03/2023 07:50:01 Final Observation Date Value Abnormality Reference (Units ) Status Glucose Point of Care 06/03/2023 07:50:01 105 70-120 (mg/dL) Final Performing Location
--- OUTSIDE RECORDS SUMMARY | 2023-07-28 23:09 | External Medical Summary ---
Author Name Unknown Address Unknown Organization K1F:LABORATORY [facility] - [address] [place] [address] Laboratory Report Ordering Provider Test Date Status JUNIOR CHOWDHURY 06/02/2023 18:43:03 Final Observation Date Value Abnormality Reference (Units ) Status SYNC LEUKOCYTES IN BLOOD BY AUTOMATED COUNT 06/02/2023 18:43:03 9.81 4.00-10.80 (K/uL) Final Segs 06/02/2023 18:43:03 69.0 40.0-75.0 (%) Final Lymphs % 06/02/2023 18:43:03 22.0 18.0-42.0 (%) Final Monos 06/02/2023 18:43:03 6.8 1.0-11.0 (%) Final Eosinophils 06/02/2023 18:43:03 1.6 0.0-6.0 (%) Final Basos 06/02/2023 18:43:03 0.4 0.0-2.0 (%) Final Immature Granulocyte, Percent 06/02/2023 18:43:03 0.2 0.0-2.0 (%) Final Absolute Segs 06/02/2023 18:43:03 6.76 1.80-7.70 (K/uL) Final Lymphs, absolute 06/02/2023 18:43:03 2.16 1.00-4.80 (K/ul) Final Monos, Abs 06/02/2023 18:43:03 0.67 0.00-1.10 (K/uL) Final Eos, Abs 06/02/2023 18:43:03 0.16 0.00-0.70 (K/uL) Final Basos, Abs 06/02/2023 18:43:03 0.04 0.00-0.20 (K/uL) Final Immature Granulocytes, Number 06/02/2023 18:43:03 0.02 0.00-0.20 (K/uL) Final Performing Location LABORATORY [facility] - [facility] [address] [place] [address]
--- OUTSIDE RECORDS SUMMARY | 2023-07-28 23:09 | External Medical Summary ---
Author Name Unknown Address Unknown Organization K1F:LABORATORY [facility] - [address] [place] [address] Laboratory Report Ordering Provider Test Date Status JUNIOR CHOWDHURY 06/02/2023 18:43:03 Final Observation Date Value Abnormality Reference (Units ) Status BUN 06/02/2023 18:43:03 39 Above high normal 6-20 (mg/dL) Final Creatinine 06/02/2023 18:43:03 2.2 Above high normal 0.5-1.0 (mg/dL) Final Glomerular filtration rate/1.73 sq M.predicted [Volume Rate/Area] in Serum, Plasma or Blood by Creatinine-based formula (CKD-EPI) 06/02/2023 18:43:03 25 Below low normal >=60 (mL/min) Final eGFR is calculated based on the CKD-EPI 2020 equation Sodium 06/02/2023 18:43:03 134 Below low normal 135 -146 (mmol/L) Final Potassium 06/02/2023 18:43:03 4.9 3.5-5.1 (m mol/L) Final Cl 06/02/2023 18:43:03 102 98-107 (mm ol/L) Final CO2 06/02/2023 18:43:03 19 Below low normal 22- 32 (mmol/L) Final Anion gap 06/02/2023 18:43:03 13 7-15 (mmol /L) Final Glucose 06/02/2023 18:43:03 142 Above high normal 70 -120 (mg/dL) Final Calcium 06/02/2023 18:43:03 9.1 8.4-10.2 ( mg/dL) Final Performing Location LABORATORY [facility] - [address] [place] [address]
--- OUTSIDE RECORDS SUMMARY | 2023-07-28 23:09 | External Medical Summary ---
Author Name Unknown Address Unknown Organization K01:[facility] [address] [place] [address] Laboratory Report Ordering Provider Test Date Status JUNIOR CHOWDHURY 06/02/2023 22:52:04 Final Observation Date Value Abnormality Reference (Units) Status Bacteria identified in Specimen by Culture 06/02/2023 22:52:04 Multiple genevieve suggests contamination or colonization Final Test: Culture, Urine, Quanti tative
Specimen Source: Urine, Clean Catch
Specimen Type: Urine
Specimen Date: 06/02/2023 10:52 PM
Result Date: 06/04/2023 9:47 AM
Result Status: Final result
Resulting Lab: [facility]
[address]
[place] [address]

CULTURE

Multiple genevieve suggests contamination or colonization

null Performing Location [facility] [place] [address] [place] [id number]
--- OUTSIDE RECORDS SUMMARY | 2023-07-28 23:09 | External Medical Summary ---
Author Name Unknown Address Unknown Organization K1F:[facility] [address] [place] [address] Laboratory Report Ordering Provider Test Date Status HAMLET ALVAREZ 06/03/2023 02:33:40 Final ADMITTED patient Observation Date Value Abnormality Reference (Units ) Status Adenovirus DNA [Presence] in Nasopharynx by BLAISE with non-probe detection 06/03/2023 02:33:40 Negative Negative Final Human coronavirus 229E RNA [Presence] in Nasopharynx by BLAISE with non-probe detection 06/03/2023 02:33:40 Negative Negative Final Human coronavirus HKU1 RNA [Presence] in Nasopharynx by BLAISE with non-probe detection 06/03/2023 02:33:40 Negative Negative Final Human coronavirus NL63 RNA [Presence] in Nasopharynx by BLAISE with non-probe detection 06/03/2023 02:33:40 Negative Negative Final Human coronavirus OC43 RNA [Presence] in Nasopharynx by BLAISE with non-probe detection 06/03/2023 02:33:40 Negative Negative Final SARS-CoV-2 (COVID-19) RNA [Presence] in Nasopharynx by BLAISE with non-probe detection 06/03/2023 02:33:40 Negative Negative Final Human metapneumovirus RNA [Presence] in Nasopharynx by BLAISE with non-probe detection 06/03/2023 02:33:40 Negative Negative Final Rhinovirus+Enterovirus RNA [Presence] in Nasopharynx by BLAISE with non-probe detection 06/03/2023 02:33:40 Negative Negative Final Influenza virus A RNA [Presence] in Nasopharynx by BLAISE with non-probe detection 06/03/2023 02:33:40 Negative Negative Final Influenza virus B RNA [Presence] in Nasopharynx by BLAISE with non-probe detection 06/03/2023 02:33:40 Negative Negative Final Parainfluenza virus 1 RNA [Presence] in Nasopharynx by BLAISE with non-probe detection 06/03/2023 02:33:40 Negative Negative Final Parainfluenza virus 2 RNA [Presence] in Nasopharynx by BLAISE with non-probe detection 06/03/2023 02:33:40 Negative Negative Final Parainfluenza virus 3 RNA [Presence] in Nasopharynx by BLAISE with non-probe detection 06/03/2023 02:33:40 Negative Negative Final Parainfluenza virus 4 RNA [Presence] in Nasopharynx by BLAISE with non-probe detection 06/03/2023 02:33:40 Negative Negative Final Respiratory syncytial virus RNA [Presence] in Nasopharynx by BLAISE with non-probe detection 06/03/2023 02:33:40 Negative Negative Final Bordetella pertussis.pertussis toxin promoter region [Presence] in Nasopharynx by BLAISE with non-probe detection 06/03/2023 02:33:40 Negative Negative Final Chlamydophila pneumoniae DNA [Presence] in Nasopharynx by BLAISE with non-probe detection 06/03/2023 02:33:40 Negative Negative Final Mycoplasma pneumoniae DNA [Presence] in Nasopharynx by BLAISE with non-probe detection 06/03/2023 02:33:40 Negative Negative Final Bordetella parapertussis [id number] DNA [Presence] in Nasopharynx by BLAISE with non-probe detection 06/03/2023 02:33:40 Negative Negative Final
The primers that detect Rhinovirus may cross react with some Enterorviruses. The validation of bronchial specimens, tracheal aspirates, and throats for this assay was developed and performance characteristics determined by [employer]. The validation of alternate specimen types has not been cleared or approved by the U.S. Food and Drug Administration (FDA). It has been determined that such clearance or approval is not necessary. Performing Location [place] [address] [place] [address]
--- OUTSIDE RECORDS SUMMARY | 2023-07-28 23:09 | External Medical Summary ---
Author Name Unknown Address Unknown Organization K1F:LABORATORY [facility] - [address] [place] [address] Laboratory Report Ordering Provider Test Date Status KEDAR TRINHOY 06/03/2023 03:53:00 Correction Observation Date Value Abnormality Reference (Units ) Status Troponin T 06/03/2023 03:53:00 110 Above upper panic limits <=14 (ng/L) Final Performing Location LABORATORY [facility] - [address] [place] [address]
--- OUTSIDE RECORDS SUMMARY | 2023-07-28 23:09 | External Medical Summary | Summary of Care ---
Author Name Unknown Organization [facility] Address [address] [place] [address] Phone [phone] Care Team Providers Care Cook Syrup Maker Name Role Phone Natali Langstonna Primary Care Provider Encounter Details Date Type Department Care Team (Late st Contact Info) Description 06/02/2023 Orders Only Access Center, [address] *DO NOT REMOVE THIS DEPARTMENT* [place] [phone] Requisition, External Radiology [address] [place] [address] Allergies Active Allergy Reactions Criticality Noted Date Comments Amoxicillin 06/26/2014 Latex 06/18/2014 Xydxmrydu-Ttbrrvpzdm-Vo- Apap Edema face/lips/tongue,Itchi ng High 11/11/2010 Sulfa Antibiotics 08/03/2000 rash, malaise documented as of this encounter (statuses as of 06/02/2023) Medications Medication Sig Dispensed Refills Start Date End Date Status OMEPRAZOLE 20 MG PO CPDR 1 tablet daily 0 Active LEVOXYL 175 MCG OR TABS 1 tablet daily 0 Active RANITIDINE HCL 150 MG PO CAPS 2 tablets daily 0 Active GLUCOPHAGE 500 MG PO TABS 2 tablets daily 0 Active HUMULIN R 100 UNIT/ML IJ SOLN 60 units twice daily 0 Active SIMVASTATIN 40 MG PO TABS 1 tablet daily 0 Active LISINOPRIL 2.5 MG PO TABS 1 tablet daily 0 Active levothyroxine sodium (SYNTHROID) 112 MCG Tablet 0 Active documented as of this encounter (statuses as of 06/02/2023) Active Problems Problem Noted Date Diagnosed Date Type 1 diabetes mellitus wit h hemoglobin A1c goal of less than 7.0% 06/18/2014 Overview: ICD-10 update of inactive term HTN, goal: symptom mgmt only 06/18/2014 Hypothyroid 06/18/2014 documented as of this encounter (statuses as of 06/02/2023) Immunizations Name Administration Dates Next Due PPD [...] as of this encounter Plan of Treatment Health Maintenance Due Date Last Done Comments DISCUSS TOBACCO CESSATION (REFER TO SMARTSET #5475) 1960 Depression Screening 1972 HIV Screening 1975 Diabetic Eye Exam 1978 Diabetic Foot Exam 1978 Hepatitis C Screening 1978 HPV/Co-Test 1990 Mammogram 2000 Cologuard 2005 Colonoscopy 2005 Colorectal Cancer Screening 2005 Fecal Occult Blood Test 2005 Sigmoidoscopy 2005 DTaP,Tdap,and Td Vaccines (2 - Tdap) 11/03/2008 11/03/1998 Cervical Cancer Screening 11/11/2013 Pap Smear 11/11/2013 11/11/2010, 04/2010, 12/10/2002, Additional history exists Pneumococcal Vaccine: Pediatrics (0 to 5 Years) and At-Risk Patients (6 to 64 Years) (2 of 2 - PCV) 01/26/2017 01/27/2016, 07/10/2011, 01/18/1996 HbA1c 05/20/2019 11/19/2018, 01/10, 02/27/2017, Additional history exists Albumin/Creatinine Ratio 11/20/2019 019, 2001, 07/09/2000, Additional history exists TSH 11/20/2019 11/19/2018, 01/10, 02/27/2017, Additional history exists COVID-19 Vaccine ( season) 2022 08/24/2020 Influenza Vaccine (FLU shot) (#1) 2022 12/18/2017, 10/24/2016, 01/11/2016, Additional history exists Zoster Vaccines (2 of 2) 06/15/2023 04/20/2023 Lipid Panel 11/20/2023 11/19/2018, 01/10, 01/14/2001, Additional history exists GFR 05/31/2024 06/01/2023, 05/10, 11/19/2018, Additional history exists GARDASIL-HPV IMMUNIZATION SERIES [...] Not on filedocumented as of this encounter Care Teams Cook Syrup Maker Relationship Specialty Start Date End Date Natali Langston DO [address] [place] [address] Donnell Lang [address] [place] [address], [place] [address] PCP - General Family Medicine 06/18/14 documented as of this encounter
--- OUTSIDE RECORDS SUMMARY | 2023-07-28 23:09 | External Medical Summary ---
Author Name Unknown Address Unknown Organization : Laboratory Report Ordering Provider Test Date Status SERGYE TRINH 06/03/2023 04:57:00 Final Observation Date Value Abnormality Reference (Units ) Status Performing Location
--- OUTSIDE RECORDS SUMMARY | 2023-07-28 23:09 | External Medical Summary ---
Author Name Unknown Address Unknown Organization : Laboratory Report Ordering Provider Test Date Status AILEEN KIDD 06/03/2023 04:19:10 Final Observation Date Value Abnormality Reference (Units ) Status Glucose Point of Care 06/03/2023 04:19:10 110 70-120 (mg/dL) Final Performing Location
--- OUTSIDE RECORDS SUMMARY | 2023-07-28 23:09 | External Medical Summary ---
Author Name Unknown Address Unknown Organization K1F:LABORATORY [facility] - [address] [place] [address] Laboratory Report Ordering Provider Test Date Status HAMLET ALVAREZ 06/02/2023 18:43:03 Final Exclude Heart Failure: <300 pg/mL
Diagnose Heart Failure:
Age <50 yr: >450 pg/mL
50-75 yr: >900 pg/mL
>75 yr: >1800 pg/mL
GFR is 30-59 mL/min: >1200 pg/mL or Age- adjusted values
GFR <30 mL/min: do not use, not reliable

Prognostic threshold: 1000 pg/mL Observation Date Value Abnormality Reference (Units ) Status BNP, Pro-hormone 06/02/2023 18:43:03 3885 Above high no rmal <300 (pg/mL) Final Performing Location LABORATORY [facility] - [address] [place] [address]
--- OUTSIDE RECORDS SUMMARY | 2023-07-28 23:09 | External Medical Summary ---
Author Name Unknown Address Unknown Organization K1F:LABORATORY [facility] - [address] [place] [address] Ave. [place] [address] Laboratory Report Ordering Provider Test Date Status JUNIOR CHOWDHURY 06/02/2023 18:43:03 Final Observation Date Value Abnormality Reference (Units ) Status WBC, Total 06/02/2023 18:43:03 9.81 4.00-10.80 (K/uL) Final RBC 06/02/2023 18:43:03 3.36 3.85-5.15 (M/uL) Final Hemoglobin 06/02/2023 18:43:03 9.3 Below low normal 12.0-15.3 (g/dL) Final HCT 06/02/2023 18:43:03 30.8 Below low normal 36.0-45.2 (%) Final MCV 06/02/2023 18:43:03 91.7 81.5-97.5 (fL) Final MCH 06/02/2023 18:43:03 27.7 27.0-34.0 (pg) Final MCHC 06/02/2023 18:43:03 30.2 32.0-36.0 (g/dL) Final RDW 06/02/2023 18:43:03 19.3 11.5-15.5 (%) Final Platelets 06/02/2023 18:43:03 294 140-400 (K/uL) Final MPV 06/02/2023 18:43:03 12.2 6.6-11.1 (fL) Final Nucleated erythrocytes/100 leukocytes [Ratio] in Blood by Automated count 06/02/2023 18:43:03 0 <=0 (/100 WBCs) Final Performing Location LABORATORY [facility] - [address] [place] [address]
--- OUTSIDE RECORDS SUMMARY | 2023-07-28 23:09 | External Medical Summary | Summary of Care ---
Author Name Unknown Organization [facility] Address [address] [place] [address] Phone [phone] Care Team Providers Care Chart Clerk Name Role Phone Natali Langstonna Primary Care Provider Encounter Details Date Type Department Care Team (Latest Contact Info) Description 06/01/2023 10:25 AM EDT - 06/01/2023 11:59 PM EDT Hospital Encounter Radiology, [address] [place] [address] Arrived Discharge Disposition: Home - Self Care Allergies Active Allergy Reactions Criticality Noted Date Comments Amoxicillin 06/26/2014 Latex 06/18/2014 Vrotdeavi-Qyiqyarhbv-Qa- Apap Edema face/lips/tongue,Itchi ng High 11/11/2010 Sulfa [...] as of this encounter Plan of Treatment Pending Results Name Type Priority Associated Diagnoses Date /Time XR KNEE 4 OR MORE VIEWS Medical Imaging Routine Left knee pain Right hip pain 06/01/2023 11:06 AM EDT XR HIP BILAT MIN 5 VIEWS INCLUDING AP OF PELVIS Medical Imaging Routine Right hip pain 06/01/2023 11:06 AM EDT Health Maintenance Due Date Last Done Comments DISCUSS TOBACCO CESSATION (REFER TO SMARTSET #6293) 1960 Depression Screening 1972 HIV Screening 1975 [...] filedocumented as of this encounter Care Teams Chart Clerk Relationship Specialty Start Date End Date Natali Langston DO [address] Lang [address] [place] [address], [place] [address] PCP - General Family Medicine 06/18/14 documented as of this encounter
--- OUTSIDE RECORDS SUMMARY | 2023-07-28 23:09 | External Medical Summary ---
Author Name Unknown Address Unknown Organization K01:[place] [place] [address] [place] [address] Laboratory Report Ordering Provider Test Date Status SERGEY TRINH 06/03/2023 03:53:00 Final Observation Date Value Abnormality Reference (Units ) Status Vitamin B12 06/03/2023 03:53:00 1643 Above high normal 232-1245 (pg/mL) Final Performing Location LABORATORY [facility] - [address] [place] [address]
--- OUTSIDE RECORDS SUMMARY | 2023-07-28 23:09 | External Medical Summary ---
Author Name Unknown Address Unknown Organization K01:[facility] [place] - [address] [place] [address] Laboratory Report Ordering Provider Test Date Status SERGEY TRINH 06/03/2023 03:53:00 Final Observation Date Value Abnormality Reference (Units ) Status Iron 06/03/2023 03:53:00 25 Below low normal 33-151 (ug/dL) Final Iron-binding capacity 06/03/2023 03:53:00 194 Below low normal 250-425 (ug/dL) Final Transferrin Sat % 06/03/2023 03:53:00 13 Below low normal 15-55 (%) Final Performing Location [facility] [place] - [address] [place] [address]
--- OUTSIDE RECORDS SUMMARY | 2023-07-28 23:09 | External Medical Summary ---
Author Name Unknown Address Unknown Organization K1F:LABORATORY [facility] - [address] [place] [address] Laboratory Report Ordering Provider Test Date Status SERGEY TRINH 06/02/2023 18:43:03 Final Observation Date Value Abnormality Reference (Units ) Status TSH 06/02/2023 18:43:03 7.28 Above high normal 0. 27-4.20 (uIU/mL) Final Performing Location LABORATORY [facility] - [address] [place] [address]
--- OUTSIDE RECORDS SUMMARY | 2023-07-28 23:09 | External Medical Summary ---
Author Name Unknown Address Unknown Organization K1F:LAB[facility]ATORY [facility] - [address] [place] [address] Laboratory Report Ordering Provider Test Date Status SERGEY TRINH 06/02/2023 18:43:03 Final Observation Date Value Abnormality Reference (Units ) Status T4, Free 06/02/2023 18:43:03 1.2 0.9-1.7 (n g/dL) Final Performing Location LABORATORY [facility] - [address] [place] [address]
--- OUTSIDE RECORDS SUMMARY | 2023-07-28 23:09 | External Medical Summary ---
Author Name Unknown Address Unknown Organization K01:[facility] [address] [place] [address] Laboratory Report Ordering Provider Test Date Status SERGEY TRINH 06/03/2023 04:57:00 Final Observation Date Value Abnormality Reference (Units ) Status Hep C Ab 06/03/2023 04:57:00 Negative Negative Final Further HCV quantitative desiree ting not performed per protocol. Performing Location LABORATORY [facility] - [address] [place] [address]
--- OUTSIDE RECORDS SUMMARY | 2023-07-28 23:09 | External Medical Summary ---
Author Name Unknown Address Unknown Organization K01:[facility] [place] - [address] [place] [address] Laboratory Report Ordering Provider Test Date Status SERGEY TRIHN 06/03/2023 04:25:24 Final Observation Date Value Abnormality Reference (Units ) Status Methicillin resistant Staphylococcus aureus (MRSA) DNA [Presence] in Nose by BLAISE with probe detection 06/03/2023 04:25:24 Negative Negative Final No Methicillin resistant Sta phylococcus aureus detected by PCR (amplified probe). Performing Location LABORATORY [facility] - [address] [place] [address]
--- OUTSIDE RECORDS SUMMARY | 2023-07-28 23:09 | External Medical Summary ---
Author Name Unknown Address Unknown Organization K1F:LABORATORY [facility] - [address] [place] [address] Laboratory Report Ordering Provider Test Date Status SERGEY TRINH 06/03/2023 04:52:00 Final Observation Date Value Abnormality Reference (Units ) Status Magnesium 06/03/2023 04:52:00 2.0 1.5-2.6 (m g/dL) Final Performing Location LABORATORY [facility] - [address] [place] [address]
--- OUTSIDE RECORDS SUMMARY | 2023-07-28 23:09 | External Medical Summary ---
Author Name Unknown Address Unknown Organization K1F:LABORATORY [facility] - [address] [place] [address] Laboratory Report Ordering Provider Test Date Status BRONWYN BERNARD 06/01/2023 07:35:00 Final Observation Date Value Abnormality Reference (Units ) Status WBC, Total 06/01/2023 07:35:00 8.70 4.00-10.80 (K/uL) Final RBC 06/01/2023 07:35:00 2.92 3.85-5.15 (M/uL) Final Hemoglobin 06/01/2023 07:35:00 8.0 Below low normal 12.0-15.3 (g/dL) Final HCT 06/01/2023 07:35:00 26.2 Below low normal 36.0-45.2 (%) Final MCV 06/01/2023 07:35:00 89.7 81.5-97.5 (fL) Final MCH 06/01/2023 07:35:00 27.4 27.0-34.0 (pg) Final MCHC 06/01/2023 07:35:00 30.5 32.0-36.0 (g/dL) Final RDW 06/01/2023 07:35:00 19.0 11.5-15.5 (%) Final Platelets 06/01/2023 07:35:00 283 140-400 (K/uL) Final MPV 06/01/2023 07:35:00 12.1 6.6-11.1 (fL) Final Nucleated erythrocytes/100 leukocytes [Ratio] in Blood by Automated count 06/01/2023 07:35:00 0 <=0 (/100 WBCs) Final Performing Location LABORATORY [facility] - [address] [place] [address]
--- OUTSIDE RECORDS SUMMARY | 2023-07-28 23:10 | External Medical Summary | Summary of Care ---
Author Name Unknown Organization [facility] Address [address] [place] [address] Phone [phone] Care Team Providers Care Reservation Agent Name Role Phone Natali Langstonna Primary Care Provider Encounter Details Date Type Department Care Team (Late st Contact Info) Description 05/25/2023 Orders Only Lab Mobile Phlebotomy [facility] [address] [place] [phone] Paco Cordero MD [address] [place] [address] HTN, goal below 140/90* Allergies Active Allergy Reactions Criticality Noted Date Comments Amoxicillin 06/26/2014 Latex 06/18/2014 Fsxsvjwzt-Xvrnwxshoz-Gm- Apap Edema face/lips/tongue,Itchi ng High 11/11/2010 Sulfa Antibiotics 08/03/2000 rash, malaise documented as of this encounter (statuses as of 05/25/2023) Medications Medication Sig Dispensed Refills Start Date [...] as of this encounter (statuses as of 05/25/2023) Active Problems Problem Noted Date Diagnosed Date Type 1 diabetes mellitus wit h hemoglobin A1c goal of less than 7.0% 06/18/2014 Overview: ICD-10 update of inactive term HTN, goal: symptom mgmt only 06/18/2014 Hypothyroid 06/18/2014 documented as of this encounter (statuses as of 05/25/2023) Immunizations Name Administration Dates Next Due PPD [...] on file Sexual Orientation Not on file documented as of this encounter Plan of Treatment Upcoming Encounters Date Type Department Care Team (Late st Contact Info) Description 05/25/2023 1:05 AM EDT Laboratory Lab Mobile Phlebotomy [facility] [address] [place] [address] [place], [facility] Mobile [place] [facility] [address] [place] [address] Arrived Scheduled Orders Name Type Priority Associated Diagnoses Orde r Schedule COMPREHENSIVE METABOLIC PANEL Lab Routine HTN, goal below 140/90 Expected: 05/26/2023, Expires: 05/24/2024 CBC Lab Routine HTN, goal below 140/90 Expected: 05/26/2023, Expires: 05/24/2024 Health Maintenance Due Date Last Done Comments DISCUSS TOBACCO CESSATION (REFER TO SMARTSET #3291) 1960 Depression Screening 1972 HIV Screening 1975 Diabetic Eye Exam 1978 Diabetic Foot Exam 1978 Hepatitis C Screening 1978 DTaP,Tdap,and Td Vaccines (1 - Tdap) 1979 11/03/1998 HPV/Co-Test 1990 Mammogram 2000 Cologuard 2005 Colonoscopy 2005 Colorectal Cancer Screening 2005 Fecal Occult Blood Test 2005 Sigmoidoscopy 2005 Cervical Cancer Screening 11/11/2013 Pap Smear 11/11/2013 11/11/2010, 04/2010, 12/10/2002, Additional history exists Pneumococcal Vaccine: Pediatrics (0 to 5 Years) and At-Risk Patients (6 to 64 Years) (2 of 2 - PCV) 01/26/2017 01/27/2016, 07/10/2011, 01/18/1996 HbA1c 05/20/2019 11/19/2018, 01/10, 02/27/2017, Additional history exists Albumin/Creatinine Ratio 11/20/2019 019, 2001, 07/09/2000, Additional history exists GFR 11/20/2019 11/19/2018, 01/10, 02/27/2017, Additional history exists TSH 11/20/2019 11/19/2018, 01/10, 02/27/2017, Additional history exists COVID-19 Vaccine (2 - 2022- season) 2022 08/24/2020 Influenza Vaccine (FLU shot) (#1) 2022 12/18/2017, 10/24/2016, 01/11/2016, Additional history exists Zoster Vaccines (2 of 2) 06/15/2023 04/20/2023 Lipid Panel 11/20/2023 11/19/2018, 01/10, 01/14/2001, Additional history exists GARDASIL-HPV IMMUNIZATION SERIES Aged [...] Not on filedocumented as of this encounter Visit Diagnoses Diagnosis HTN, goal below 140/90- Primary Unspecified essential hypertension documented in this encounter Care Teams Reservation Agent Relationship Specialty Start Date End Date aNtali Langston DO [address] [place] [address] PCP - General Family Medicine 06/18/14 documented as of this encounter
--- OUTSIDE RECORDS SUMMARY | 2023-07-28 23:10 | External Medical Summary ---
Author Name Unknown Address Unknown Organization K1F:LABORATORY [facility] - [address] [place] [address] Laboratory Report Ordering Provider Test Date Status BRONWYN BERNARD 05/25/2023 05:00:13 Final Observation Date Value Abnormality Reference (Units ) Status WBC, Total 05/25/2023 05:00:13 9.47 4.00-10.80 (K/uL) Final RBC 05/25/2023 05:00:13 3.32 3.85-5.15 (M/uL) Final Hemoglobin 05/25/2023 05:00:13 9.2 Below low normal 12.0-15.3 (g/dL) Final HCT 05/25/2023 05:00:13 30.9 Below low normal 36.0-45.2 (%) Final MCV 05/25/2023 05:00:13 93.1 81.5-97.5 (fL) Final MCH 05/25/2023 05:00:13 27.7 27.0-34.0 (pg) Final MCHC 05/25/2023 05:00:13 29.8 32.0-36.0 (g/dL) Final RDW 05/25/2023 05:00:13 19.3 11.5-15.5 (%) Final Platelets 05/25/2023 05:00:13 346 140-400 (K/uL) Final MPV 05/25/2023 05:00:13 11.8 6.6-11.1 (fL) Final Nucleated erythrocytes/100 leukocytes [Ratio] in Blood by Automated count 05/25/2023 05:00:13 0 <=0 (/100 WBCs) Final Performing Location LABORATORY [facility] - [address] [place] [address]
--- OUTSIDE RECORDS SUMMARY | 2023-07-28 23:10 | External Medical Summary ---
Author Name Unknown Address Unknown Organization K1F:LABORATORY [facility] - [address] [place] [address] Laboratory Report Ordering Provider Test Date Status BRONWYN BERNARD 05/25/2023 05:00:13 Final Observation Date Value Abnormality Reference (Units ) Status BUN 05/25/2023 05:00:13 43 Above high normal 6-20 (mg/dL) Final Creatinine 05/25/2023 05:00:13 2.4 Above high normal 0.5-1.0 (mg/dL) Final Glomerular filtration rate/1.73 sq M.predicted [Volume Rate/Area] in Serum, Plasma or Blood by Creatinine-based formula (CKD-EPI) 05/25/2023 05:00:13 22 Below low normal >=60 (mL/min) Final eGFR is calculated based on the CKD-EPI 2020 equation SODIUM 05/25/2023 05:00:13 136 135-146 (m mol/L) Final Potassium 05/25/2023 05:00:13 5.1 3.5-5.1 (m mol/L) Final Cl 05/25/2023 05:00:13 103 98-107 (mm ol/L) Final CO2 05/25/2023 05:00:13 20 Below low normal 22- 32 (mmol/L) Final Anion gap 05/25/2023 05:00:13 13 7-15 (mmol /L) Final Glucose 05/25/2023 05:00:13 176 Above high normal 70 -120 (mg/dL) Final Albumin 05/25/2023 05:00:13 2.8 Below low normal 3.8 -5.0 (g/dL) Final AST (Aspartate aminotransferase) 05/25/2023 05:00:13 73 Above high normal 10-35 (U/L) Final Alk Phos 05/25/2023 05:00:13 457 Above high normal 35 -130 (U/L) Final Bilirubin, Total 05/25/2023 05:00:13 0.4 <=1 .2 (mg/dL) Final Calcium 05/25/2023 05:00:13 8.9 8.4-10.2 ( mg/dL) Final Protein 05/25/2023 05:00:13 7.0 6.0-8.3 (g /dL) Final ALT (Alanine aminotransferase) 05/25/2023 05:00:13 31 10-35 (U/L) Dante paris Performing Location LABORATORY [facility] - [address] [place], [place] [address] [address]
--- OUTSIDE RECORDS SUMMARY | 2023-07-28 23:10 | External Medical Summary ---
Author Name Unknown Address Unknown Organization [facility] - [address] [place] [address] Laboratory Report Ordering Provider Test Date Status BRONWYN BERNARD 06/01/2023 07:35:00 Final Observation Date Value Abnormality Reference (Units ) Status BUN 06/01/2023 07:35:00 39 Above high normal 6-20 (mg/dL) Final Creatinine 06/01/2023 07:35:00 2.2 Above high normal 0.5-1.0 (mg/dL) Final Glomerular filtration rate/1.73 sq M.predicted [Volume Rate/Area] in Serum, Plasma or Blood by Creatinine-based formula (CKD-EPI) 06/01/2023 07:35:00 24 Below low normal >=60 (mL/min) Final eGFR is calculated based on the CKD-EPI 2020 equation Sodium 06/01/2023 07:35:00 137 135-146 (m mol/L) Final Potassium 06/01/2023 07:35:00 4.8 3.5-5.1 (m mol/L) Final Cl 06/01/2023 07:35:00 105 98-107 (mm ol/L) Final CO2 06/01/2023 07:35:00 21 Below low normal 22- 32 (mmol/L) Final Anion gap 06/01/2023 07:35:00 11 7-15 (mmol /L) Final Glucose 06/01/2023 07:35:00 103 70-120 (mg /dL) Final Albumin 06/01/2023 07:35:00 2.7 Below low normal 3.8 -5.0 (g/dL) Final AST (Aspartate aminotransferase) 06/01/2023 07:35:00 70 Above high normal 10-35 (U/L) Final Result may be falsely elevat ed due to hemolysis. Alk Phos 06/01/2023 07:35:00 504 Above high normal 35 -130 (U/L) Final Bilirubin, Total 06/01/2023 07:35:00 0.2 <=1 .2 (mg/dL) Final Calcium 06/01/2023 07:35:00 8.9 8.4-10.2 ( mg/dL) Final Protein 06/01/2023 07:35:00 6.2 6.0-8.3 (g /dL) Final ALT (Alanine aminotransferase) 06/01/2023 07:35:00 29 10-35 (U/L) Dante paris [facility] Location [facility] - [address] [place] [address] [address]aga[address] [place] [id number]
--- OUTSIDE RECORDS SUMMARY | 2023-07-28 23:10 | External Medical Summary | Summary of Care ---
Author Name Unknown Organization [facility] Address [address] [place] [address] Phone [phone] Care Team Providers Care Content Strategist Name Role Phone Natali Langstonna Primary Care Provider Encounter Details Date Type Department Care Team (Late st Contact Info) Description 05/31/2023 Orders Only Lab Mobile Phlebotomy [facility] [address] [place] [id number] Paco Cordero MD [address] [place] [id number] HTN, goal below 140/90* Allergies Active Allergy Reactions Criticality Noted Date Comments Amoxicillin 06/26/2014 Latex 06/18/2014 Dhwzljdaz-Qbgztxwvcd-Ms- Apap Edema face/lips/tongue,Itchi ng High 11/11/2010 Sulfa Antibiotics 08/03/2000 rash, malaise documented as of this encounter (statuses as of 05/31/2023) Medications Medication Sig Dispensed Refills Start Date [...] as of this encounter (statuses as of 05/31/2023) Active Problems Problem Noted Date Diagnosed Date Type 1 diabetes mellitus wit h hemoglobin A1c goal of less than 7.0% 06/18/2014 Overview: ICD-10 update of inactive term HTN, goal: symptom mgmt only 06/18/2014 Hypothyroid 06/18/2014 documented as of this encounter (statuses as of 05/31/2023) Immunizations Name Administration Dates Next Due PPD [...] as of this encounter Plan of Treatment Scheduled Orders Name Type Priority Associated Diagnoses Orde r Schedule COMPREHENSIVE METABOLIC PANEL Lab Routine HTN, goal below 140/90 Expected: 06/01/2023, Expires: 05/30/2024 CBC Lab Routine HTN, goal below 140/90 Expected: 06/01/2023, Expires: 05/30/2024 Health Maintenance Due Date Last Done Comments DISCUSS TOBACCO CESSATION (REFER TO SMARTSET #9708) 1960 Depression Screening 1972 HIV Screening 1975 [...] 11/19/2018, 01/10, 01/14/2001, Additional history exists GFR 05/24/2024 05/25/2023, 11/10, 01/22/2018, Additional history exists GARDASIL-HPV IMMUNIZATION SERIES Aged [...] hypertension documented in this encounter Care Teams Content Strategist Relationship Specialty Start Date End Date Natali Langston DO [address] [facility] [address] [place] [address] PCP - General Family Medicine 06/18/14 documented as of this encounter
--- NOTE | 2023-07-29 07:15 | Hospitalist Progress Note ---
Date of Service July 29, 2023 Assessment & Plan (1) Ulcer of right heel: (2) Diabetic foot ulcer: (3) CKD (chronic kidney disease) stage 4, GFR 15-29 ml/min: (4) Ambulatory dysfunction: (5) (HFpEF) heart failure with preserved ejection fraction: (6) SOB (shortness of breath): (7) Hypercholesteremia: (8) Hypertension: (9) Anxiety: (10) Anemia: (11) Hyponatremia: Plan Anemia: Low baseline hemoglobin likely in the setting of CKD, AM hemoglobin 6.9 Patient consent obtained for blood transfusion, will transfuse 1 unit pRBCs H&H recheck at 1600, pending Continue iron supplementation Recheck AM Hgb Transfusion threshold remains for Hgb<7 or symptomatic anemia Hyponatremia: AM sodium 131, possibly due to chronic diuretic use vs poor nutrition Recheck AM labs Consider nutrition consult Right heel diabetic foot ulcer: Wound culture taken, pending H/o Pseudomonas on 11/21/2022 and Staph aureus on 01/04/2023 Wound culture growing gram negative bacilli, sensitivities to follow Blood cultures negative at 24 hours Continue cefepime 2 g IV every 12 hours Wound care consulted, appreciate recs Pressure offloading heel Ambulatory Dysfunction: Patient lives alone, has difficulty getting up from current bed - will coordinate with case management to obtain hospital bed PT/OT evaluations ordered, appreciate recs Pulmonary edema/HFpEF/hypertension: Currently without shortness of breath Outpatient prescriptions reviewed with pharmacy, last diuretic filled was Bumex 2mg daily - continue Follow renal function panel and magnesium level CKD stage IV: Creatinine 2.07 on admission, with base range 2.29-2.48, AM Cr 2.27 QAM lab monitoring Diabetes mellitus: Continue basal insulin 14 units subcu twice daily Placed on Accu-Cheks with NovoLog SSI PCU/Tele VTE ppx: Heparin Diet: HH, CC Full Code Admission and Anticipated Discharge Date Admission Date: July 27, 2023 Supervising Physician Co-Signing Physician Notes Attending attestation Pt seen and examined in concert with Dr. Heath. In agreement with the documented findings as noted in the resident documentation with any exceptions or additions as noted here. Resting in bed, back pain well controlled, some ongoing constipation/bloating. Reports no SOB, chest pain, abd pain. On examination, S1/S2 nl RRR no MCG. CTAB. Abd NT/ND BS+ve. Bilateral lower extremity edema to the midshin. Anemia, hypochromic, acute on chronic in the setting of CKDIV - transfuse 1 U PRBC and trend CBC following and daily. Baseline hgb ~8 Hyponatremia - likely displaced arterial volume with LE swelling. Improving w/ fluid restriction, encourage PO intake of meals with low albumin. Consider nutrition consult. Right heel ulcer, diabetic - continue cefepime, f/u wound cultures. Wound care consult. Pulmonary edema with HFpEF - resume bumetanide diuresis and monitor for ongoing Cr increase. Current may be secondary to anemia. Trend BMP. Else see resident documentation as noted. Subjective Patient evaluated at bedside this morning, notes that she has not had a bowel movement in at least 2 days. Denies shortness of breath, does not note back pain today. Consent obtained for blood transfusion with nurse as witness. Patient denies excessive fatigue, lightheadedness, chest pain, palpitations. Review of Systems Review of Systems: as per HPI Physical Exam Physical Exam: General: Alert and oriented. No acute distress Cardiac: Regular rate and rhythm, no murmurs appreciated Respiratory: Lungs clear to auscultation bilaterally, No increased work of breathing Abdominal: Soft, non-tender, non-distended. Bowel sounds present. Extremities: RLE with clean, dry dressing over right heel. Bilateral LE edema up to the calf. Results & Data Results & Data Vital Signs (Past 12 Hours) Vital Signs Temp Pulse Pulse Resp BP Pulse Ox O2 Del Method 07/29/23 07:03 37.0 C 62 18 121/72 98 Nasal Cannula 07/29/23 03:30 36.8 C 64 20 108/62 100 Nasal Cannula 07/28/23 23:54 36.6 C 66 18 109/67 100 Room Air 07/28/23 22:00 67 O2 Flow Rate 07/29/23 07:03 2 07/29/23 03:30 1.5 07/28/23 23:54 07/28/23 22:00 Resident Activity Tracking Resident Involvement: Resident Care Provided Care Provided: Adult Hospital Medicine (2) Diabetic foot ulcer Diabetes mellitus type: type 2 Diabetic foot ulcer location: heel Lateral ity: right Non-pressure ulcer stage: with fat layer exposed Qualified Code(s): E11.621 - Type 2 diabetes mellitus with foot ulcer; L97.412 - Non-pressure chronic ulcer of right heel and midfoot with fat layer exposed (8) Hypertension Hypertension type: primary hypertension Qualified Code(s): I10 - Essential (primary) hypertension (10) Anemia Anemia type: unspecified type Qualified Code(s): D64.9 - Anemia, unspecified
[2023-07-29 07:28] LABS: Hematocrit (blood only) 22.3 % (37.0-47.0); Hemoglobin 6.9 g/dl (12.0-16.0); Mean Corpuscular Hemoglobin 27.3 pg (25.0-34.0); Mean Corpuscular Hgb Conc 30.9 g/dL (32.0-36.0); Mean Corpuscular Volume 88.1 fL (80.0-100.0); Mean Platelet Volume 11.4 fL (9.4-12.4); Platelet Count 286 K/uL (130-400); RDW Coefficient of Variation 15.1 % (11.5-14.5); Red Blood Count 2.53 M/uL (4.20-5.40); White Blood Count 9.59 K/ul (4.8-10.8)
[2023-07-29 07:42] LABS: Albumin Level 2.3 gm/dl (3.4-5.0); BUN Creatinine Ratio 31.7 (10-20); Calcium 8.2 mg/dl (8.6-10.3); Creatinine Clr Calc Pharmacy 33.7 ml/min; Est GFR (African American) 25.8 ml/min; Est GFR (Non-African American) 22.2 ml/min; Magnesium 1.6 mg/dl (1.7-2.4); Phosphorus 5.2 mg/dl (2.5-4.9); Potassium 4.2 mmol/L (3.5-5.1)
[2023-07-29 07:46] LABS: Basophils # (auto) 0.04 K/uL (0.00-0.20); Basophils % (auto) 0.4 %; Eosinophils # (auto) 0.35 K/uL (0.00-0.50); Eosinophils % (auto) 3.6 %; Immature Granulocytes # (auto) 0.06 K/uL (0.01-0.20); Immature Granulocytes % (auto) 0.6 %; Lymphocytes # (auto) 2.24 K/uL (1.20-3.40); Lymphocytes % (auto) 23.4 %; Monocytes # (auto) 0.65 K/uL (0.11-0.59); Monocytes % (auto) 6.8 %; Neutrophils # (auto) 6.25 K/uL (1.40-6.50); Neutrophils % (auto) 65.2 %; RBC Morphology Unremarkable
[2023-07-29] MEDS: BUMETANIDE 1 MG TAB PO SCH (08:10)
[2023-07-29] MEDS ORDERED: SODIUM CHLORIDE 0.9% 250 ML IV PRN (10:56)
[2023-07-29] MEDS: diphenhydrAMINE 50 MG/ML VIAL IV STA (13:35)
[2023-07-29] MEDS: POLYETHYLENE (MIRALAX) 17 GM PACK PO ONE (15:41)
[2023-07-29 16:16] LABS: Hematocrit (blood only) 30.3 % (37.0-47.0); Hemoglobin 9.8 g/dl (12.0-16.0)
[2023-07-29] MEDS: MAGNESIUM SULFATE / D5W 1 GM/100 ML BAG IV ONE (18:03)
[2023-07-30 07:46] LABS: Basophils # (auto) 0.03 K/uL (0.00-0.20); Basophils % (auto) 0.3 %; Eosinophils # (auto) 0.33 K/uL (0.00-0.50); Eosinophils % (auto) 3.7 %; Hematocrit (blood only) 23.7 % (37.0-47.0); Hemoglobin 7.6 g/dl (12.0-16.0); Immature Granulocytes # (auto) 0.06 K/uL (0.01-0.20); Immature Granulocytes % (auto) 0.7 %; Lymphocytes # (auto) 2.35 K/uL (1.20-3.40); Lymphocytes % (auto) 26.5 %; Mean Corpuscular Hemoglobin 27.7 pg (25.0-34.0); Mean Corpuscular Hgb Conc 32.1 g/dL (32.0-36.0); Mean Corpuscular Volume 86.5 fL (80.0-100.0); Mean Platelet Volume 11.3 fL (9.4-12.4); Monocytes # (auto) 0.65 K/uL (0.11-0.59); Monocytes % (auto) 7.3 %; Neutrophils # (auto) 5.44 K/uL (1.40-6.50); Neutrophils % (auto) 61.5 %; Platelet Count 277 K/uL (130-400); RDW Coefficient of Variation 14.8 % (11.5-14.5); RDW Standard Deviation 46.7 fL (36.4-46.3); Red Blood Count 2.74 M/uL (4.20-5.40); White Blood Count 8.86 K/ul (4.8-10.8)
[2023-07-30 08:12] LABS: RBC Morphology Unremarkable
[2023-07-30 08:14] LABS: Albumin Level 2.2 gm/dl (3.4-5.0); Calcium 8.4 mg/dl (8.6-10.3); Creatinine Clr Calc Pharmacy 30.8 ml/min; Est GFR (African American) 23.3 ml/min; Est GFR (Non-African American) 20.1 ml/min; Magnesium 1.8 mg/dl (1.7-2.4); Potassium 4.2 mmol/L (3.5-5.1)
--- NOTE | 2023-07-30 09:50 | Hospitalist Progress Note ---
Date of Service July 30, 2023 Assessment & Plan (1) Ulcer of right heel: (2) Diabetic foot ulcer: (3) CKD (chronic kidney disease) stage 4, GFR 15-29 ml/min: (4) Ambulatory dysfunction: (5) (HFpEF) heart failure with preserved ejection fraction: (6) SOB (shortness of breath): (7) Hypercholesteremia: (8) Hypertension: (9) Anxiety: (10) Anemia: (11) Hyponatremia: Plan Anemia: Low baseline hemoglobin likely in the setting of CKD, AM hemoglobin 7.6 Continue iron supplementation Recheck AM Hgb Transfusion threshold remains for Hgb<7 or symptomatic anemia Right heel diabetic foot ulcer: Wound culture taken, gram stain + gram negative bacilli, sensitivities to follow H/o Pseudomonas on 11/21/2022 and Staph aureus on 01/04/2023 Blood cultures negative at 48 hours Continue cefepime 2 g IV every 12 hours Wound care consulted, appreciate recs Pressure offloading heel Will obtain MRI right ankle with attention to right heel to rule out underlying osteomyelitis Ambulatory Dysfunction: Patient lives alone, has difficulty getting up from current bed - will coordinate with case management to obtain hospital bed PT/OT evaluations ordered, appreciate recs Pulmonary edema/HFpEF/hypertension: Currently without shortness of breath Outpatient prescriptions reviewed with pharmacy, last diuretic filled was Bumex 2mg daily - continue for time being Follow renal function panel and magnesium level CKD stage IV: Creatinine 2.07 on admission, with base range 2.29-2.48, AM Cr 2.47 QAM lab monitoring Hyponatremia: AM sodium 131, possibly due to chronic diuretic use vs poor nutrition Recheck AM labs Consider nutrition consult Diabetes mellitus: Continue basal insulin 14 units subcu twice daily Placed on Accu-Cheks with NovoLog SSI PCU/Tele VTE ppx: Heparin Diet: HH, CC Full Code Admission and Anticipated Discharge Date Admission Date: July 27, 2023 Supervising Physician Co-Signing Physician Notes I personally examined the patient and verified all parson points of history and exam, discussed case, and agree with decision making with Dr Heath Feeling okay other than some shoulder pain and bilateral knee pain. Asked that I reach out to her advocate Thao Hussein at [phone] to callwent to voicemail and unfortunately voicemail box was full. Updated patient on MRI findings and next steps. Vitals noted, in general she is awake and alert pleasant no distress. HEENT normocephalic atraumatic mucous membranes moist, mildly dyspneic off of nasal cannula but whenever she puts it back on she appears comfortable. Right shoulder with tenderness in the supraspinatus region, bilateral knee tenderness, no erythema. Heel ulcerdiabetic/venous stasisnow unfortunately with underlying osteomyelitiscontinuing cefepime pending cultures. Podiatry and infectious disease input will be appreciated. Anemia, hypochromic, acute on chronic in the setting of CKDIV - transfused 1 U PRBC , Hemodynamically stable, no signs of blood loss Hyponatremia - likely displaced arterial volume with LE swelling. Improving w/ fluid restriction, encourage PO intake of meals with low albumin. Consider nutrition consult. Pulmonary edema with HFpEF and CKD 4difficult to tell her volume statusat times she requires diuresis for her chronic diastolic CHF, other times she appears to be over diuresed with the diuretics obviously not being useful whenever her swelling is just venous stasis, a very difficult fluid balance, her morbid obesity with BMI 54.2 making it much more difficult to discern her volume status as well as contributing to the venous stasis. For now given the concern on pulmonary edema earlier in her hospital staycontinue diuretics and follow closely, but if her creatinine continues to trend up, then she may be as dried out as we can, and we will hold off on diuretics. Orthopedic painsappears to have supraspinatus tendinitis and bilateral knee arthritis flaresTylenol [id number]-vjf-luvku, tramadol as needed, Voltaren gel to right shoulder (minimal systemic absorption) DVT prophylaxisheparin subcu again tried to call her advocate at the above number, no answer/went straight to voicemail/voicemail box was full. Otherwise as above Subjective Patient evaluated at bedside this morning, noted to be on supplemental oxygen but denies shortness of breath, does not note back pain today but expresses that right shoulder hurts and is feeling, this issue also flared up after discharge to home from rehab. Patient denies excessive fatigue, lightheadedness, chest pain, palpitations. Review of Systems Review of Systems: as per HPI Physical Exam Physical Exam: General: Alert and oriented. No acute distress Cardiac: Regular rate and rhythm, no murmurs appreciated Respiratory: Lungs clear to auscultation bilaterally, No increased work of breathing Abdominal: Soft, non-tender, non-distended. Bowel sounds present. Extremities: RLE with clean, dry dressing over right heel. Bilateral LE edema up to the calf. Results & Data Results & Data Vital Signs (Past 12 Hours) Vital Signs Temp Pulse Pulse Resp BP Pulse Ox O2 Del Method 07/30/23 07:01 36.4 C L 58 L 18 104/54 L 98 Nasal Cannula 07/30/23 02:54 36.5 C 63 18 112/61 96 Nasal Cannula 07/29/23 22:24 36.9 C 63 18 113/64 98 Nasal Cannula 07/29/23 22:00 63 O2 Flow Rate 07/30/23 07:01 1.5 07/30/23 02:54 1.5 07/29/23 22:24 1.5 07/29/23 22:00 Resident Activity Tracking Resident Involvement: Resident Care Provided Care Provided: Adult Hospital Medicine (2) Diabetic foot ulcer Diabetes mellitus type: type 2 Diabetic foot ulcer location: heel Laterality: right Non-pressure ulcer stage: with fat layer exposed Qualified Code(s): E11.621 - Type 2 diabetes mellitus with foot ulcer; L97.412 - Non- pressure chronic ulcer of right heel and midfoot with fat layer exposed (8) Hypertension Hypertension type: primary hypertension Qualified Code(s): I10 - Essential (primary) hypertension (10) Anemia Anemia type: unspecified type Qualified Code(s): D64.9 - Anemia, unspecified
[2023-07-30] MEDS: LIDOCAINE 5% 1 PATCH TD STA (11:12)
--- NOTE | 2023-07-30 15:02 | Magnetic Resonance Report ---
MR ankle RT wo con HISTORY: Heel ulcer. r/o osteomyelitis TECHNIQUE: Multiplanar multisequence MRI of the right ankle/hindfoot was performed without contrast a ccording to standard departmental protocol. COMPARISON STUDY: Right foot radiograph 07/27/2023. FINDINGS: There is extensive soft tissue edema seen throughout the ankle and visualized hindfoot. No loculated fluid collections to suggest an abscess. There is a focal skin ulceration at the plantar chamberlain rface of the heel which measures approximately 18 mm. Deep to the skin ulceration there is abnormal T 2 hyperintense, T1 hypointense signal within the plantar aspect of the posterior calcaneus. There is also suggestion of loss of the normal cortex at the plantar surface of the posterior calcaneus best s een on sagittal image 12 and coronal image 28. Therefore, these findings are consistent with acute os teomyelitis within the posterior calcaneus. No fracture or dislocation within the right ankle. There is thickening and irregularity of the plantar fascia which may be due to the underlying ulceration. E xtensive edema within the plantar muscles of the hindfoot. No joint effusion. The Achilles tendon is intact. The flexor, extensor, and peroneal tendons are normal in course, caliber, and signal intensit y. IMPRESSION: 1. Abnormal marrow signal and small focal area of cortical destruction at the plantar surface of the posterior calcaneus consistent with an osteomyelitis. 2. This area of cortical destruction is deep to the 18 mm skin ulceration at the plantar surface of t he heel. 3. Extensive subcutaneous and soft tissue edema within the ankle and hindfoot. No loculated fluid col lections to suggest an abscess on this noncontrast study. ACT 112: Negative or not required by law. Electronically signed by: Paco Contreras M.D. 07/30/2023 3:01 PM
[2023-07-30] MEDS ORDERED: CHLORASEPTIC (PHENOL) 1.4% SOLN 180 ML BTL MT PRN (15:35)
--- NOTE | 2023-07-30 17:48 | Billing Data ---
Date of Service July 30, 2023 Coding Level of Care Code 97288 SUB INP/OBS CARE MIN
[2023-07-30] MEDS: DICLOFENAC SOD 1% GEL 100 GM TUBE EXT SCH (20:52)
[2023-07-30] MEDS: ACETAMINOPHEN 500 MG TAB PO SCH (20:54)
[2023-07-30] MEDS: LANTUS PER UNIT CHARGE SQ SCH (21:03)
[2023-07-31 06:51] LABS: Calcium 8.7 mg/dl (8.6-10.3); Magnesium 1.7 mg/dl (1.7-2.4); Potassium 4.1 mmol/L (3.5-5.1)
[2023-07-31 06:57] LABS: BUN Creatinine Ratio 29.5 (10-20); Creatinine Clr Calc Pharmacy 30.5 ml/min; Est GFR (African American) 22.8 ml/min; Est GFR (Non-African American) 19.7 ml/min; Phosphorus 4.7 mg/dl (2.5-4.9)
--- NOTE | 2023-07-31 07:11 | Hospitalist Progress Note ---
Date of Service July 31, 2023 Assessment & Plan (1) Ulcer of right heel: (2) Diabetic foot ulcer: (3) CKD (chronic kidney disease) stage 4, GFR 15-29 ml/min: (4) Ambulatory dysfunction: (5) (HFpEF) heart failure with preserved ejection fraction: (6) SOB (shortness of breath): (7) Hypercholesteremia: (8) Hypertension: (9) Anxiety: (10) Anemia: (11) Hyponatremia: Plan Osteomyelitis/ Right heel diabetic foot ulcer: MRI ankle consistent with osteomyelitis Wound culture taken, + pseudomonas, intermediate sensitivity to Cefepime H/o Pseudomonas on 11/21/2022 and Staph aureus on 01/04/2023 Blood cultures negative at 48 hours ID consulted, appreciate recs: antibiotics switched to Meropenem Baseline CRP, ESR pending Podiatry consulted, appreciate recs regarding surgical intervention Wound care consulted, appreciate recs Pressure offloading heel Anemia: Low baseline hemoglobin likely in the setting of CKD, AM hemoglobin 8 Continue iron supplementation Recheck AM Hgb Transfusion threshold remains for Hgb<7 or symptomatic anemia Ambulatory Dysfunction: Patient lives alone, has difficulty getting up from current bed - will coordinate with case management to obtain hospital bed PT/OT recommending placement, CM following for dispo needs Pulmonary edema/HFpEF/hypertension: Currently without shortness of breath Outpatient prescriptions reviewed with pharmacy, last diuretic filled was Bumex 2mg daily - hold Bumex given rising Cr Follow renal function panel and magnesium level CKD stage IV: Creatinine 2.07 on admission, with base range 2.29-2.48, AM Cr 2.51 QAM lab monitoring Hyponatremia: AM sodium 132, possibly due to chronic diuretic use vs poor nutrition Recheck AM labs Consider nutrition consult Diabetes mellitus: Decrease Lantus to 5U BID Placed on Accu-Cheks with NovoLog SSI PCU/Tele VTE ppx: Heparin Diet: HH, CC Full Code Admission and Anticipated Discharge Date Admission Date: July 27, 2023 Supervising Physician Co-Signing Physician Notes I personally examined the patient and verified all parson points of history and exam, discussed case, and agree with decision making with Dr Heath no new complaints. Extensive discussion with patient and advocate. Answered all questions the best my ability and to her satisfaction. Vitals noted, in general she is awake and alert pleasant no distress. HEENT normocephalic atraumatic mucous membranes moist. Breathing unlabored no accessory muscle use good effort. Skin shows no rashes no pallor or icterus. He will currently dressed. Heel ulcerdiabetic/venous stasisnow unfortunately with underlying osteomyelitis Pseudomonas unfortunately intermediate to cefepimeappreciate infectious disease changing to meropenem. Greatly appreciate podiatry taking her to the OR. Extensive discussions on how significant her problem this is. Patient and advocate are aware and understanding that the situation may need to escalate. Anemia, hypochromic, acute on chronic in the setting of CKDIV - transfused 1 U PRBC , Hemodynamically stable, no signs of blood loss Hyponatremia - likely displaced arterial volume with LE swelling. Improving w/ fluid restriction, encourage PO intake of meals with low albumin. Consider nutrition consult. Pulmonary edema with acute on chronic HFpEF/acute on chronic diastolic CHF present on admission treated and appears to be resolved; with baseline and CKD 4it is difficult to tell her volume statusat times she requires diuresis for her chronic diastolic CHF, other times she appears to be over diuresed with the diuretics obviously not being useful whenever her swelling is just venous stasis, a very difficult fluid balance, her morbid obesity with BMI 54.2 making it much more difficult to discern her volume status as well as contributing to the venous stasis. That said currently appears to be on the dry side of euvolemic Orthopedic painsappears to have supraspinatus tendinitis and bilateral knee arthritis flaresTylenol [id number], tramadol as needed, Voltaren gel to right shoulder (minimal systemic absorption) DVT prophylaxisheparin subcu Subjective Patient evaluated at bedside this morning, states that pain is better but c/o tremor/shaking with exertion, denies shortness of breath. Patient denies excessive fatigue, lightheadedness, chest pain, palpitations. Denies fever, chills, heel pain. Review of Systems Review of Systems: as per HPI Physical Exam Physical Exam: General: Alert and oriented. No acute distress Cardiac: Regular rate and rhythm, no murmurs appreciated Respiratory: Lungs clear to auscultation bilaterally, No increased work of breathing Abdominal: Soft, non-tender, non-distended. Bowel sounds present. Extremities: RLE with clean, dry dressing over right heel. Bilateral LE edema up to the calf. Results & Data Results & Data Vital Signs (Past 12 Hours) Vital Signs Temp Pulse Pulse Resp BP Pulse Ox O2 Del Method 07/31/23 07:01 36.7 C 62 18 134/69 99 Nasal Cannula 07/31/23 03:11 36.4 C L 62 16 116/57 L 97 Room Air 07/30/23 23:00 66 07/30/23 22:15 36.4 C L 66 22 123/73 98 Nasal Cannula 07/30/23 20:00 Nasal Cannula 07/30/23 19:21 36.3 C L 63 20 153/75 H 99 Nasal Cannula O2 Flow Rate 07/31/23 07:01 1.5 07/31/23 03:11 07/30/23 23:00 07/30/23 22:15 2 07/30/23 20:00 2 07/30/23 19:21 2 Resident Activity Tracking Resident Involvement: Resident Care Provided Care Provided: Adult Hospital Medicine (2) Diabetic foot ulcer Diabetes mellitus type: type 2 Diabetic foot ulcer location: heel Laterality: right Non-pressure ulcer stage: with fat layer exposed Qualified Code(s): E11.621 - Type 2 diabetes mellitus with foot ulcer; L97.412 - Non- pressure chronic ulcer of right heel and midfoot with fat layer exposed (8) Hypertension Hypertension type: primary hypertension Qualified Code(s): I10 - Essential (primary) hypertension (10) Anemia Anemia type: unspecified type Qualified Code(s): D64.9 - Anemia, unspecified
[2023-07-31 07:49] LABS: Mean Corpuscular Hemoglobin 27.6 pg (25.0-34.0); Mean Corpuscular Volume 86.2 fL (80.0-100.0); Mean Platelet Volume 11.2 fL (9.4-12.4); Platelet Count 298 K/uL (130-400); RDW Coefficient of Variation 14.4 % (11.5-14.5); RDW Standard Deviation 45.8 fL (36.4-46.3); White Blood Count 9.56 K/ul (4.8-10.8)
[2023-07-31] MEDS: MEROPENEM 500 MG in SYRINGE 0 ML IV SCH (08:36)
[2023-07-31] MEDS: LORATADINE 10 MG TAB PO PRN (08:38)
--- NOTE | 2023-07-31 08:48 | Infectious Disease Consult ---
Date of Consultation July 31, 2023 Assessment & Plan (1) Ulcer of right heel: (2) Acute osteomyelitis of right calcaneus: (3) CKD (chronic kidney disease) stage 4, GFR 15-29 ml/min: Plan 63yo F with h/o diabetes, chronic right heel ulcer, CKD IV, morbid obesity with ambulatory dysfunction, HFpEF, fibromyalgia, HTN, HLD, recent admission 05/04- 05/23 with a mechanical fall f/w UTI s/p keflex x 7d who presented on 07/26, after being home 3 days from rehab, with yellow right heel wound drainage, progressive SOB, and low back pain with difficulty getting out of bed. In the ED, she was noted to have some hypoxia to 85% and was placed on NC. Also noted to have purulent drainage form her right heel. Otherwise she has been afebrile, with stable BPs. Initial labs with WBC 14.17>>8.86, Cr 2.07>>2.51 (at baseline). LFT wnl. Troponin elevated. UA negative. CT L spine negative. CXR with pulmonary edema. Right foot XR with diffuse soft tissue swelling. She was started on cefepime for her heel ulcer and diuresis for pulmonary edema. R foot MRI done which showed abnormal marrow signal and small focal area of cortical destruction at plantar surface of posterior calcaneus c/w OM. ID consulted 07/30 for assistance. Calcaneal OM is difficult to treat without surgical intervention and antibiotics alone are not sufficient to eradicate the infection. Furthermore, with an open ulcer, this is likely to continue getting reinfected. Will wait for podiatry input regarding surgical management. Her cultures had Pseudomonas which was intermediate to cefepime, so Saba changed abx to meropenem for now. Note her QTc is 499 with bifascicular block, which makes using fluoroquinolones difficult. # Right chronic diabetic heel ulcer with underlying calcaneal OM # WCx with PsA # CKD IV # Allergy to amoxicillin (hives), sulfa (rash), clarithromycin (?true allergy) - podiatry consult - Saba changed cefepime to meropenem - Saba ordered baseline ESR and CRP - if she goes to the OR, please send cultures ID will continue to follow. If questions or concerns, contact Infectious Disease Call Center . Karlee Garcia MD [facility], Division of Infectious Diseases [facility]: [phone] Consultation Information Consultation was provided via telemedicine using two-way real-time interactive telecommunication between the patient and the telemedicine provider. For the duration of the visit, the provider was performing the assessment from a different facility than the patient. This includesuse of bluetooth stethoscope forauscultationperformed by the telepresenter that the telemedicine provider can hear if described in the physical exam. [place] contact information: Please call [facility] Call Center . (Phone Number For Physician Use Only) After establishing a telemedicine visit, patient was: Patient was verified with two unique identifiers, Patient/authorized rep acknowledged consent and understanding and Gave permission to continue telehealth session Time Spent with Patient: Initial => 75 min History of Present Illness Reason for Consultation: osteomyelitis Attending Physician: Mj Olivares DO History of Present Illness 63yo F with h/o diabetes, chronic right heel ulcer, CKD IV, morbid obesity with ambulatory dysfunction, HFpEF, fibromyalgia, HTN, HLD, recent admission 05/04- 05/23 with a mechanical fall f/w UTI s/p keflex x 7d who presented on 07/26, after being home 3 days from rehab, with weeping right heel wound, progressive SOB, and low back pain with difficulty getting out of bed. She has had difficulty getting around her house and then developed acute onset of back with radiation down her left leg. Back pain is worse from prior. In the ED, she was noted to have some hypoxia to 85% and was placed on NC. Also noted to have purulent drainage form her right heel. Otherwise she has been afebrile, with stable BPs. Initial labs with WBC 14.17>>8.86, Cr 2.07>>2.51 (at baseline). LFT wnl. Troponin elevated. UA negative. CT L spine negative. CXR with pulmonary edema. Right foot XR with diffuse soft tissue swelling. She was started on cefepime for her heel ulcer and diuresis for pulmonary edema. R foot MRI done which showed abnormal marrow signal and small focal area of cortical destruction at plantar surface of posterior calcaneus c/w OM. ID consulted 07/30 for assistance. On evaluation, patient reports feeling like her arms are shaking, which has been ongoing for 2 days. She also notes itching all over since yesterday. No rashes. She has a right foot ulcer x 1 yr which she says has also been draining during that time. She doesnt note any redness. No nausea or vomiting. She says she has soft stools. Allergies Allergy/AdvReac Type Severity Reaction Status Date / Time amoxicillin Allergy Intermediate hives Verified 07/27/23 20:52 dextromethorphan Allergy Intermediate Hives Verified 07/27/23 20:52 [From NyQuil] doxylamine [From NyQuil] Allergy Intermediate Hives Verified 07/27/23 20:52 latex Allergy Intermediate RASH Verified 07/27/23 20:52 Sulfa (Sulfonamide Allergy Intermediate RASH Verified 07/27/23 20:52 Antibiotics) clarithromycin AdvReac Intermediate HEART RACES Verified 07/27/23 20:52 Umesh's multigrain bread Allergy Intermediate Hives Uncoded 07/27/23 20:52 Home Medications Medication Instructions Recorded Confirmed Type amitriptyline 50 mg tablet 100 mg PO HS 12/06/17 07/27/23 History fluticasone propionate 50 1 spray intranasal QAM 03/10/19 07/27/23 History mcg/actuation nasal spray,suspension levothyroxine 175 mcg tablet 175 mcg PO QAM 03/10/19 07/27/23 History (Synthroid) atorvastatin 80 mg tablet 80 mg PO HS 02/19/20 07/27/23 History loratadine 10 mg tablet 10 mg PO DAILY PRN Allergy Symptoms 01/19/21 07/27/23 History pen needle, diabetic 32 gauge x 06/20/21 05/03/23 History 5/32" (BD Ultra-Fine Siria Pen Needle) blood sugar diagnostic (FreeStyle 06/29/21 05/03/23 History Precision Perico Strips) flash glucose scanning reader 06/29/21 05/03/23 History (FreeStyle Davy 14 Day [place]) flash glucose sensor (FreeStyle 06/29/21 05/03/23 History Davy 14 Day Sensor kit) lancets 30 gauge (OneTouch Delica 06/29/21 05/03/23 History Lancets) cholecalciferol (vitamin D3) 50 50 mcg PO QAM 02/09/22 07/27/23 History mcg (2,000 unit) capsule cyanocobalamin (vitamin B-12) 1,000 mcg PO DAILY #30 tabs 01/16/23 07/27/23 Rx 1,000 mcg tablet ferrous sulfate 325 mg (65 mg 325 mg PO DAILY #30 tabs 01/16/23 07/27/23 Rx iron) tablet folic acid 1 mg tablet 1,000 mcg PO DAILY #30 tabs 01/16/23 07/27/23 Rx albuterol sulfate 90 mcg/actuation 2 puff inhalation QID PRN wheezing 03/19/23 07/27/23 History aerosol inhaler omeprazole 20 mg capsule,delayed 20 mg PO DAILY 03/19/23 07/27/23 History release acetaminophen 325 mg tablet 650 mg (2 x 325 mg) PO Q4H PRN 04/12/23 07/27/23 Rx pain #30 tabs amlodipine 10 mg tablet 10 mg PO DAILY #30 tabs 04/12/23 07/27/23 Rx insulin aspart U-100 100 unit/mL 20 unit subcut TIDWMEAL 04/13/23 07/27/23 History subcutaneous solution (Novolog U-100 Insulin aspart) bumetanide 1 mg tablet 0 mg PO QAM 07/27/23 07/27/23 History insulin detemir U-100 100 unit/mL 20 unit subcut BID 07/27/23 07/27/23 History (3 mL) subcutaneous pen (Levemir FlexPen) simvastatin 40 mg tablet 40 mg PO HS 07/27/23 07/27/23 History Patient History Medical History (Updated 07/31/23 @ 08:46 by Karlee Garcia MD) Fall Pseudomonas infection History of anesthesia reaction woke up during shoulder arthroscopy RBBB Hypoxia Hyperglycemia due to type 2 diabetes mellitus Pneumonia due to COVID-19 virus COVID-19 hx of in 2019--per pt was hospitalized for COVID--states no symptoms currently Bifascicular block Foot drop LEFT Chronic back pain Hx of irritable bowel syndrome Cataract Bilateral Umbilical hernia Hiatal hernia PTSD (post-traumatic stress disorder) History of diverticulitis Tear of medial meniscus of right knee, current Diabetes mellitus with hyperglycemia, with long-term current use of insulin Neck pain Narrowing of C6-C7 with bone spurs. CAUSES NUMBNESS IN LEFT ARM Anxiety Hyperlipidemia Hypertension History of migraine Hyperosmolar hyponatremia Fibromyalgia Surgical History History of repair of right rotator cuff History of repair of left rotator cuff History of repair of ACL L S/P rotator cuff repair History of arthroscopy of right shoulder History of dilatation and curettage History of repair of ACL R History of esophagogastroduodenoscopy (EGD) History of colonoscopy History of D&C Family History Grandfather Diabetes Mother Myocardial infarction Heart disease Tobacco abuse Hx of CABG Family/Other Family history of diabetes mellitus Brother Family history of diabetes mellitus Father Aortic aneurysm Grandmother (Paternal) Cerebral aneurysm Stroke Other Family history of colon cancer in mother Social History Smoking Status: Never smoker Second Hand Exposure: No; Do You Dip or Chew Tobacco: No; Tobacco Cessation Education Requested by Patient: No Hx Alcohol Use: No Hx Substance Use: No Preferred Language: Barbadian Communication Ability: Effective Visual Impairment: No Limitations Instructional Leader Required: No Beliefs That Will Affect Care: None marital status: Current Living Situation: Alone Other Information That Helps Us Care for You: No Feels Safe at Home: Yes Safety Concerns: Feels Safe At This Time Assistive Devices: Oxygen - Continuous and Walker Review of System 10-point review of systems reviewed and are negative except for as above. Physical Exam Physical Exam: General: Awake, alert, no acute distress HEENT: NC/AT, EOMI, mmm Neck: supple, no LAD Lungs: respirations non-labored Heart: nl peripheral perfusion Abdomen: soft, NT/ND Ext: bl 1+ pitting LE edema; right foot with heel ulcer with yellow drainage. No redness of legs noted Skin: as above Neuro: moving all extremities Results & Data Vital Signs (Past 12 Hours) Vital Signs Temp Pulse Pulse Resp BP Pulse Ox O2 Del Method 07/31/23 07:01 36.7 C 62 18 134/69 99 Nasal Cannula 07/31/23 03:11 36.4 C L 62 16 116/57 L 97 Room Air 07/30/23 23:00 66 07/30/23 22:15 36.4 C L 66 22 123/73 98 Nasal Cannula O2 Flow Rate 07/31/23 07:01 1.5 07/31/23 03:11 07/30/23 23:00 05/20/24 22:15 2 Laboratory Results Labs reviewed Diagnostic Findings Imaging reviewed
[2023-07-31] MEDS: LACTOBACILLUS ACIDOPHILUS 1 GM PACK PO SCH (12:29)
--- NOTE | 2023-07-31 20:09 | Billing Data ---
Date of Service July 31, 2023 Coding Level of Care Code 41759 SUB INP/OBS CARE
[2023-07-31] MEDS ORDERED: LANTUS PER UNIT CHARGE SQ SCH (21:00)
[2023-07-31] MEDS: LANTUS PER UNIT CHARGE SQ SCH (21:14)
--- NOTE | 2023-07-31 22:32 | Podiatry Consultation ---
Date of Consultation July 31, 2023 Assessment & Plan (1) Acute osteomyelitis of right calcaneus: (2) Ulcer of right heel: Non-pressure ulcer stage: with necrosis of bone Qualified Code(s): L97.414 - Non-pressure chronic ulcer of right heel and midfoot with necrosis of bone (3) Diabetic foot ulcer: Diabetes mellitus type: type 2 Diabetic foot ulcer location: heel Laterality: right Non-pressure ulcer stage: with fat layer exposed Qualified Code(s): E11.621 - Type 2 diabetes mellitus with foot ulcer; L97.412 - Non- pressure chronic ulcer of right heel and midfoot with fat layer exposed (4) Morbid obesity with BMI of 60.0-69.9, adult: Plan patient was examined and evaluated. Her foot dressing was taken down and the ulcer inspected at bedside. We did discuss at length the etiology and treatment for this ulceration. She has tried and failed inpatient rehab, IV antibiotics, and wound care for this. At this point, with this level of infection, she will most certainly require surgical intervention for any meaningful improvement. A partial calcanectomy was discussed as the best potential outcome. This would be performed to decrease infectious burden ideally allow for healing of the wound. This is a very significant surgical intervention with increasing morbidity due to the decreased function of the foot. Still, it is more beneficial than the alternative of a below the knee amputation. She may progress to this anyway if she again fails IV antibiotic therapy and continued wound care, which will be required after the calcanectomy anyway. Patient is willing to attempt this limb salvage for now, though understands that she can elect for a below the knee amputation if she grows weary of this treatment. We will work on scheduling this for . We will continue to follow her in the meantime. History of Present Illness Reason for Consultation: right heel osteomyelitis Attending Physician: Mj Olivares DO History of Present Illness patient seen at bedside. She states that she has a long-standing history of this right heel ulceration that has not improved over the last year or so. It is hard to fully discern what the true initiating events for this ulcer were, however, it is now present, large, and deeply infected. She has been admitted with this ulceration because of the significant systemic signs of infection she was having. This includes nausea, vomiting, fever, and chills. She states that she was at an inpatient living facility and was routinely trying to get an ambulance to pick her up, though the facility was insistent that had under control. Eventually, she states, she was able to have an ambulance come pick her up and take her here to the hospital. Since admission, she has had an MRI and been on antibiotics. She admits to being more comfortable now but is still working to get her blood sugar under more adequate control as well. She was in inpatient rehab for this ulceration, she states for the last year, but that was at a separate facility of the more recent one that she was living at. Overall, the timeline of events is uncertain at best. Allergies Allergy/AdvReac Type Severity Reaction Status Date / Time amoxicillin Allergy Intermediate hives Verified 07/27/23 20:52 dextromethorphan Allergy Intermediate Hives Verified 07/27/23 20:52 [From NyQuil] doxylamine [From NyQuil] Allergy Intermediate Hives Verified 07/27/23 20:52 latex Allergy Intermediate RASH Verified 07/27/23 20:52 Sulfa (Sulfonamide Allergy Intermediate RASH Verified 07/27/23 20:52 Antibiotics) clarithromycin AdvReac Intermediate HEART RACES Verified 07/27/23 20:52 Umesh's multigrain bread Allergy Intermediate Hives Uncoded 07/27/23 20:52 Home Medications Medication Instructions Recorded Confirmed Type amitriptyline 50 mg tablet 100 mg PO HS 12/06/17 07/27/23 History fluticasone propionate 50 1 spray intranasal QAM 03/10/19 07/27/23 History mcg/actuation nasal spray,suspension levothyroxine 175 mcg tablet 175 mcg PO QAM 03/10/19 07/27/23 History (Synthroid) atorvastatin 80 mg tablet 80 mg PO HS 02/19/20 07/27/23 History loratadine 10 mg tablet 10 mg PO DAILY PRN Allergy Symptoms 01/19/21 07/27/23 History pen needle, diabetic 32 gauge x 06/20/21 05/03/23 History " (BD Ultra-Fine Siria Pen Needle) blood sugar diagnostic (FreeStyle 06/29/21 05/03/23 History Precision Perico Strips) flash glucose scanning reader 06/29/21 05/03/23 History (FreeStyle Davy 14 Day [place]) flash glucose sensor (FreeStyle 06/29/21 05/03/23 History Davy 14 Day Sensor kit) lancets 30 gauge (OneTouch Delica 06/29/21 05/03/23 History Lancets) cholecalciferol (vitamin D3) 50 50 mcg PO QAM 02/09/22 07/27/23 History mcg (2,000 unit) capsule cyanocobalamin (vitamin B-12) 1,000 mcg PO DAILY #30 tabs 01/16/23 07/27/23 Rx 1,000 mcg tablet ferrous sulfate 325 mg (65 mg 325 mg PO DAILY #30 tabs 01/16/23 07/27/23 Rx iron) tablet folic acid 1 mg tablet 1,000 mcg PO DAILY #30 tabs 01/16/23 07/27/23 Rx albuterol sulfate 90 mcg/actuation 2 puff inhalation QID PRN wheezing 03/19/23 07/27/23 History aerosol inhaler omeprazole 20 mg capsule,delayed 20 mg PO DAILY 03/19/23 07/27/23 History release acetaminophen 325 mg tablet 650 mg (2 x 325 mg) PO Q4H PRN 04/12/23 07/27/23 Rx pain #30 tabs amlodipine 10 mg tablet 10 mg PO DAILY #30 tabs 04/12/23 07/27/23 Rx insulin aspart U-100 100 unit/mL 20 unit subcut TIDWMEAL 04/13/23 07/27/23 His tory subcutaneous solution (Novolog U-100 Insulin aspart) bumetanide 1 mg tablet 0 mg PO QAM 07/27/23 07/27/23 History insulin detemir U-100 100 unit/mL 20 unit subcut BID 07/27/23 07/27/23 History (3 mL) subcutaneous pen (Levemir FlexPen) simvastatin 40 mg tablet 40 mg PO HS 07/27/23 07/27/23 History Patient History Medical History Fall Pseudomonas infection History of anesthesia reaction woke up during shoulder arthroscopy RBBB Hypoxia Hyperglycemia due to type 2 diabetes mellitus Pneumonia due to COVID-19 virus COVID-19 hx of in 2019--per pt was hospitalized for COVID--states no symptoms currently Bifascicular block Foot drop LEFT Chronic back pain Hx of irritable bowel syndrome Cataract Bilateral Umbilical hernia Hiatal hernia PTSD (post-traumatic stress disorder) History of diverticulitis Tear of medial meniscus of right knee, current Diabetes mellitus with hyperglycemia, with long-term current use of insulin Neck pain Narrowing of C6-C7 with bone spurs. CAUSES NUMBNESS IN LEFT ARM Anxiety Hyperlipidemia Hypertension History of migraine Hyperosmolar hyponatremia Fibromyalgia Surgical History History of repair of right rotator cuff History of repair of left rotator cuff History of repair of ACL L S/P rotator cuff repair History of arthroscopy of right shoulder History of dilatation and curettage History of repair of ACL R History of esophagogastroduodenoscopy (EGD) History of colonoscopy History of D&C Family History Grandfather Diabetes Mother Myocardial infarction Heart disease Tobacco abuse Hx of CABG Family/Other Family history of diabetes mellitus Brother Family history of diabetes mellitus Father Aortic aneurysm Grandmother (Paternal) Cerebral aneurysm Stroke Other Family history of colon cancer in mother Social History Smoking Status: Never smoker Second Hand Exposure: No; Do You Dip or Chew Tobacco: No; Tobacco Cessation Education Requested by Patient: No Hx Alcohol Use: No Hx Substance Use: No Preferred Language: Armenian Communication Ability: Effective Visual Impairment: No Limitations Configurator Required: No Beliefs That Will Affect Care: None marital status: Current Living Situation: Alone Other Information That Helps Us Care for You: No Feels Safe at Home: Yes Safety Concerns: Feels Safe At This Time Assistive Devices: Oxygen - Continuous and Walker Review of Systems Review of Systems: All systems reviewed & are unremarkable except as noted in HPI & below Constitutional: + fever, + chills and + fatigue Eyes: no problem reported Ear, Nose, Mouth, Throat: no problem reported Respiratory: no problem reported Cardiovascular: + edema; no problem reported Gastrointestinal: + nausea and + vomiting; no problem repo rted Genitourinary: no problem reported Musculoskeletal: no problem reported Integumentary: + skin ulcer, + wounds and + erythema Neurologic: + loss of sensation, + numbness and + pa resthesia; no generalized weakness Psychiatric: no problem reported Physical Exam Physical Exam: lower extremity focused exam: DP/PT pulses 2/4 bilaterally. Significant edema is noted to the bilateral lower extremity up to the level of the calf. Protective sensation is absent along with fine touch sensation. There is no pain clinical exam of the right heel ulceration, as well. This ulceration is large, measuring 6 x 3 cm at the level of the epidermis though does form a more focal tunnel directly under the calcaneus. The smaller centralized lesion is closer to 2.5 x 2.5 cm and probes directly to the calcaneus, around 2 cm deep. There is no zaynab purulence but the bone is easily palpable. There is local erythema and calor, consistent with this infection. CFT is brisk to the digits. No active bleeding is noted on probing of the wound. No aggressive debridement was performed at bedside. No palpable fluctuance or abscess formation is noted. Constitutional: WD/WN, vitals as above + ill appearing and + obese Eyes: PERRL, conjunctivae normal, anicteric sclerae ENMT: external ear and nose normal, oropharynx normal Neck: trachea midline, no thyromegaly normal visual inspection Respiratory: normal respiratory effort; no respiratory distress Cardiovascular: Rate/Rhythm: regular rate and regular rhythm Chest (Breasts): Chest: normal inspection of chest Gastrointestinal (Abdomen): Inspection/Auscultation: abdomen normal to inspection Percussion/Palpation: + abdomen tender and abdomen soft Musculoskeletal: no cyanosis or clubbing, extremities motor strength 5/5 Head/Neck/Chest: normocephalic and head atraumatic Extremities: extremities normal to inspection Neurologic: awake; no focal motor deficits Psychiatric: A+Ox3, euthymic affect Results & Data Vital Signs (Past 12 Hours) Vital Signs Temp Pulse Pulse Resp BP BP Pulse Ox 07/31/23 19:17 36.4 C L 67 18 156/89 H 99 07/31/23 17:02 36.8 C 88 18 130/79 99 07/31/23 14:49 36.9 C 62 18 143/75 H 99 07/31/23 14:44 64 07/31/23 11:03 36.5 C 61 18 138/75 99 O2 Del Method O2 Flow Rate 07/31/23 19:17 Nasal Cannula 2.0 07/31/23 17:02 Room Air 07/31/23 14:49 Nasal Cannula 1.5 07/31/23 14:44 07/31/23 11:03 Nasal Cannula 1.5 Diagnostic Findings MRI performed yesterday with the results correlated clinically. The entire calcaneus appears to be infected, with the ulcer obviously probing to the bone and the entire body of the calcaneus expressing increased signal intensity on STIR imaging.
--- NOTE | 2023-08-01 06:53 | Hospitalist Progress Note ---
Date of Service August 01, 2023 Assessment & Plan (1) Ulcer of right heel: (2) Diabetic foot ulcer: (3) CKD (chronic kidney disease) stage 4, GFR 15-29 ml/min: (4) Ambulatory dysfunction: (5) (HFpEF) heart failure with preserved ejection fraction: (6) SOB (shortness of breath): (7) Hypercholesteremia: (8) Hypertension: (9) Anxiety: (10) Anemia: (11) Hyponatremia: Plan Osteomyelitis/ Right heel diabetic foot ulcer: MRI ankle consistent with osteomyelitis Wound culture taken, + pseudomonas, intermediate sensitivity to Cefepime H/o Pseudomonas on 11/21/2022 and Staph aureus on 01/04/2023 Blood cultures negative at 48 hours ID consulted, appreciate recs: Continue Meropenem ESR 101, CRP 3.94 Podiatry consulted, recommending surgical intervention, tentatively hoping for afternoon Wound care consulted, appreciate recs Pressure offloading heel Anemia: Low baseline hemoglobin likely in the setting of CKD, AM hemoglobin 8.8 Continue iron supplementation Recheck AM Hgb Transfusion threshold remains for Hgb<7 or symptomatic anemia Ambulatory Dysfunction: Patient lives alone, has difficulty getting up from current bed - will coordinate with case management to obtain hospital bed PT/OT recommending placement, CM following for dispo needs Pulmonary edema/HFpEF/hypertension: Currently without shortness of breath Outpatient prescriptions reviewed with pharmacy, last diuretic filled was Bumex 2mg daily - hold Bumex given rising Cr Follow renal function panel and magnesium level CKD stage IV: Creatinine 2.07 on admission, with base range 2.29-2.48, AM Cr 2.5 QAM lab monitoring Hyponatremia: AM sodium 132, possibly due to chronic diuretic use vs poor nutrition Recheck AM labs Consider nutrition consult Diabetes mellitus: Continue Lantus to 5U BID Placed on Accu-Cheks with NovoLog SSI PCU/Tele VTE ppx: Heparin Diet: HH, CC Full Code Admission and Anticipated Discharge Date Admission Date: July 27, 2023 Supervising Physician Co-Signing Physician Notes I personally examined the patient and verified all parson points of history and exam, discussed case, and agree with decision making with Dr Heath No new problems feels about the same. Breathing about the same.. Vitals noted, in general she is awake and alert pleasant no distress. HEENT normocephalic atraumatic mucous membranes moist. Breathing unlabored no accessory muscle use good effort. Skin shows no rashes no pallor or icterus. He will currently dressed. Heel ulcerdiabetic/venous stasisnow unfortunately with underlying osteomyelitis Pseudomonas Continuemeropenem. Greatly appreciate podiatry taking her to the OR. have had extensive discussions on how significant her problem this is. Patient and advocate are aware and understanding that the situation may need to escalate. Anemia, hypochromic, acute on chronic in the setting of CKDIV - transfused 1 U PRBC , Hemodynamically stable, no signs of blood loss Hyponatremia - likely displaced arterial volume with LE swelling. Improving w/ fluid restriction, encourage PO intake of meals with low albumin. Consider nutrition consult. Pulmonary edema with acute on chronic HFpEF/acute on chronic diastolic CHF present on admission treated and appears to be resolved; with baseline and CKD 4it is difficult to tell her volume statusat times she requires diuresis for her chronic diastolic CHF, other times she appears to be over diuresed with the diuretics obviously not being useful whenever her swelling is just venous stasis, a very difficult fluid balance, her morbid obesity with BMI 54.2 making it much more difficult to discern her volume status as well as contributing to the venous stasis. today appears euvolemic. Continue to hold diuretic and follow Orthopedic painsappears to have supraspinatus tendinitis and bilateral knee arthritis flaresTylenol [id number], tramadol as needed, Voltaren gel to right shoulder (minimal systemic absorption) DVT prophylaxisheparin subcu (hold tomorrow morning) Subjective Patient evaluated at bedside this morning, continues to c/o tremor/shaking of extremities, denies shortness of breath. Patient denies excessive fatigue, lightheadedness, chest pain, palpitations. Denies fever, chills, heel pain. Review of Systems Review of Systems: as per HPI Physical Exam Physical Exam: General: Alert and oriented. No acute distress Cardiac: Regular rate and rhythm, no murmurs appreciated Respiratory: Lungs clear to auscultation bilaterally, No increased work of breathing Abdominal: Soft, non-tender, non-distended. Bowel sounds present. Extremities: RLE with clean, dry dressing over right heel. Bilateral LE edema up to the calf. Results & Data Results & Data Vital Signs (Past 12 Hours) Vital Signs Temp Pulse Pulse Resp BP Pulse Ox O2 Del Method 08/01/23 02:42 36.5 C 66 18 134/72 97 Nasal Cannula 07/31/23 23:00 71 07/31/23 22:42 36.3 C L 70 18 155/80 H 96 Nasal Cannula 07/31/23 20:00 Nasal Cannula 07/31/23 19:17 36.4 C L 67 18 156/89 H 99 Nasal Cannula O2 Flow Rate 08/01/23 02:42 2.0 07/31/23 23:00 07/31/23 22:42 2.0 07/31/23 20:00 2 07/31/23 19:17 2.0 Resident Activity Tracking Resident Involvement: Resident Care Provided Care Provided: Adult [facility] (1) Ulcer of right heel Non-pressure ulcer stage: with necrosis of bone Qualified Code(s): L97.414 - Non-pressure chronic ulcer of right heel and midfoot with necrosis of bone (2) Diabetic foot ulcer Diabetes mellitus type: type 2 Diabetic foot ulcer location: heel Laterality: right Non-pressure ulcer stage: with fat layer exposed Qualified Code(s): E11.621 - Type 2 diabetes mellitus with foot ulcer; L97.412 - Non- pressure chronic ulcer of right heel and midfoot with fat layer exposed (8) Hypertension Hypertension type: primary hypertension Qualified Code(s): I10 - Essential (primary) hypertension (10) Anemia Anemia type: unspecified type Qualified Code(s): D64.9 - Anemia, unspecified
[2023-08-01 07:59] LABS: Hematocrit (blood only) 27.3 % (37.0-47.0); Hemoglobin 8.8 g/dl (12.0-16.0); Mean Corpuscular Hgb Conc 32.2 g/dL (32.0-36.0); Mean Corpuscular Volume 86.9 fL (80.0-100.0); Mean Platelet Volume 11.9 fL (9.4-12.4); Platelet Count 310 K/uL (130-400); RDW Coefficient of Variation 14.7 % (11.5-14.5); RDW Standard Deviation 46.9 fL (36.4-46.3); Red Blood Count 3.14 M/uL (4.20-5.40); White Blood Count 9.74 K/ul (4.8-10.8)
[2023-08-01 08:31] LABS: BUN Creatinine Ratio 29.2 (10-20); C Reactive Protein 3.94 mg/dl (0-0.5); Calcium 8.9 mg/dl (8.6-10.3); Creatinine Clr Calc Pharmacy 30.1 ml/min; Est GFR (African American) 22.9 ml/min; Est GFR (Non-African American) 19.8 ml/min; Magnesium 1.7 mg/dl (1.7-2.4); Phosphorus 4.6 mg/dl (2.5-4.9); Potassium 4.2 mmol/L (3.5-5.1)
--- NOTE | 2023-08-01 12:59 | Billing Data ---
Date of Service August 01, 2023 Coding Level of Care Code 52952 SUB INP/OBS CARE
--- NOTE | 2023-08-01 21:39 | Podiatry Progress Note ---
Date of Service August 01, 2023 Assessment & Plan (1) Acute osteomyelitis of right calcaneus: (2) Ulcer of right heel: (3) Diabetic foot ulcer: (4) Morbid obesity with BMI of 60.0-69.9, adult: Plan patient was examined and evaluated. - Added on surgery for tomorrow afternoon. - All questions answered for now. Will plan on obtaining written consent preoperatively. - Continue IV antbiotics, Dry sterile dressing until then. - Will make further recommendations once extent of infection is confirmed Admission and Anticipated Discharge Date Admission Date: July 27, 2023 Subjective patient seen at bedside. She does admit to continued tremors to her extremities overall but otherwise is doing well and improved even since yesterday. She states that she has decided to sign her DNR, as she would not like heroic measures if she were to have any catastrophic events. Otherwise, she is still interested in this partial calcanectomy. Further, she states that her blood sugar has been slowly improving over the last couple of days as well. Review of Systems Constitutional: + fever, + chills and + fatigue Eyes: no problem reported Ear, Nose, Mouth, Throat: no problem reported Respiratory: no problem reported Cardiovascular: + edema; no problem reported Gastrointestinal: + nausea and + vomiting; no problem repo rted Genitourinary: no problem reported Musculoskeletal: no problem reported Integumentary: + skin ulcer, + wounds and + erythema Neurologic: + loss of sensation, + numbness and + pa resthesia; no generalized weakness Psychiatric: no problem reported Physical Exam Physical Exam: lower extremity focused exam: DP/PT pulses 2/4 bilaterally. Significant edema is noted to the bilateral lower extremity up to the level of the calf. Protective sensation is absent along with fine touch sensation. There is no pain clinical exam of the right heel ulceration, as well. This ulceration is large, measuring 6 x 3 cm at the level of the epidermis though does form a more focal tunnel directly under the calcaneus. The smaller centralized lesion is closer to 2.5 x 2.5 cm and probes directly to the calcaneus, around 2 cm deep. There is no zaynab purulence but the bone is easily palpable. There is local erythema and calor, consistent with this infection. CFT is brisk to the digits. No active bleeding is noted on probing of the wound. No aggressive debridement was performed at bedside. No palpable fluctuance or abscess formation is noted. Constitutional: WD/WN, vitals as above + ill appearing and + obese Eyes: PERRL, conjunctivae normal, anicteric sclerae ENMT: external ear and nose normal, oropharynx normal Neck: trachea midline, no thyromegaly normal visual inspection Respiratory: normal respiratory effort; no respiratory distress Cardiovascular: Rate/Rhythm: regular rate and regular rhythm Chest (Breasts): Chest: normal inspection of chest Gastrointestinal (Abdomen): Inspection/Auscultation: abdomen normal to inspect ion Percussion/Palpation: + abdomen tender and abdomen soft Musculoskeletal: no cyanosis or clubbing, extremities motor strength 5/5 Head/Neck/Chest: normocephalic and head atraumatic Extremities: extremities normal to inspection Neurologic: awake; no focal motor deficits Psychiatric: A+Ox3, euthymic affect Results & Data Results & Data Vital Signs (Past 12 Hours) Vital Signs Temp Pulse Resp BP Pulse Ox O2 Del Method O2 Flow Rate 08/01/23 19:58 36.5 C 69 22 158/78 H 99 Nasal Cannula 08/01/23 15:09 36.5 C 89 18 145/73 H 97 Nasal Cannula 1.5 08/01/23 11:35 36.5 C 65 18 148/84 H 100 Nasal Cannula 2 (2) Ulcer of right heel Non-pressure ulcer stage: with necrosis of bone Qualified Code(s): L97.414 - Non-pressure chronic ulcer of right heel and midfoot with necrosis of bone (3) Diabetic foot ulcer Diabetes mellitus type: type 2 Diabetic foot ulcer location: heel Laterality: right Non-pressure ulcer stage: with fat layer exposed Qualified Code(s): E11.621 - Type 2 diabetes mellitus with foot ulcer; L97.412 - Non- pressure chronic ulcer of right heel and midfoot with fat layer exposed
[2023-08-02] MEDS ORDERED: Nursing to Pharmacy Communication SCH ×2 (00:15→20:00)
[2023-08-02] MEDS: INSULIN ASPART PER UNIT CHARGE SC SCH ×2 (05:56→20:24)
--- NOTE | 2023-08-02 06:39 | Hospitalist Progress Note ---
Date of Service August 02, 2023 Assessment & Plan (1) Ulcer of right heel: (2) Diabetic foot ulcer: (3) CKD (chronic kidney disease) stage 4, GFR 15-29 ml/min: (4) Ambulatory dysfunction: (5) (HFpEF) heart failure with preserved ejection fraction: (6) SOB (shortness of breath): (7) Hypercholesteremia: (8) Hypertension: (9) Anxiety: (10) Anemia: (11) Hyponatremia: Plan Osteomyelitis/ Right heel diabetic foot ulcer: MRI ankle consistent with osteomyelitis Wound culture taken, + pseudomonas, intermediate sensitivity to Cefepime H/o Pseudomonas on 11/21/2022 and Staph aureus on 01/04/2023 Blood cultures negative at 48 hours ID consulted, appreciate recs: Continue Meropenem Baseline ESR 101, CRP 3.94 Podiatry consulted, patient on OR schedule for right partial calcanectomy today Wound care consulted, appreciate recs Pressure offloading heel Anemia: Low baseline hemoglobin likely in the setting of CKD, AM hemoglobin 9 Continue iron supplementation Recheck AM Hgb Transfusion threshold remains for Hgb<7 or symptomatic anemia Ambulatory Dysfunction: Patient lives alone, has difficulty getting up from current bed - will coordinate with case management to obtain hospital bed PT/OT recommending placement, CM following for dispo needs Pulmonary edema/HFpEF/hypertension: Currently without shortness of breath Outpatient prescriptions reviewed with pharmacy, last diuretic filled was Bumex 2mg daily - hold Bumex given rising Cr Follow renal function panel and magnesium level CKD stage IV: Creatinine 2.07 on admission, with base range 2.29-2.48, AM Cr 2.36 QAM lab monitoring Hyponatremia: AM sodium 134, possibly due to chronic diuretic use vs poor nutrition Recheck AM labs Consider nutrition consult Diabetes mellitus: Continue Lantus to 5U BID Placed on Accu-Cheks with NovoLog SSI Med/Tele VTE ppx: Held pending surgery Diet: NPO pendign surgery, resume post-op Full Code Admission and Anticipated Discharge Date Admission Date: July 27, 2023 Supervising Physician Co-Signing Physician Notes I personally examined the patient and verified all parson points of history and exam, discussed case, and agree with decision making with Dr Heath feels ok - anxious about surgery today. no sob. O2 had been turned up but no noted hypoxia, and she denies dyspnea. Vitals noted, in general she is awake and alert pleasant no distress. HEENT normocephalic atraumatic mucous membranes moist. Breathing unlabored no accessory muscle use good effort. difficult exam but no r/r/w good effort no conversational dyspnea Skin shows no rashes no pallor or icterus. Heel ulcerdiabetic/venous stasisnow unfortunately with underlying osteomyelitis Pseudomonas Continuemeropenem. Greatly appreciate podiatry taking her to the OR. have had extensive discussions on how significant her problem this is. Patient and advocate are aware and understanding that the situation may need to escalate. Anemia, hypochromic, acute on chronic in the setting of CKDIV - transfused 1 U PRBC , Hemodynamically stable, no signs of blood loss Hyponatremia - likely displaced arterial volume with LE swelling. Improving w/ fluid restriction, encourage PO intake of meals with low albumin. Consider nutrition consult. Pulmonary edema with acute on chronic HFpEF/acute on chronic diastolic CHF present on admission treated and appears to be resolved; with baseline and CKD 4it is difficult to tell her volume statusat times she requires diuresis for her chronic diastolic CHF, other times she appears to be over diuresed with the diuretics obviously not being useful whenever her swelling is just venous stasis, a very difficult fluid balance, her morbid obesity with BMI 54.2 making it much more difficult to discern her volume status as well as contributing to the venous stasis. today appears euvolemic. Continue to hold diuretic and follow; increase in O2 seems to have been arbitrary - i resumed her prior 2L Orthopedic painsappears to have supraspinatus tendinitis and bilateral knee arthritis flaresTylenol [id number], tramadol as needed, Voltaren gel to right shoulder (minimal systemic absorption) DVT prophylaxisheparin subcu (holding this morning) Subjective Patient evaluated at bedside this morning, notes that she is slightly nervous about her upcoming surgery but otherwise feels fine this morning. Denies shortness of breath, denies chest pain, denies right heel pain. Review of Systems Review of Systems: as per HPI Physical Exam Physical Exam: General: Alert and oriented. No acute distress Cardiac: Regular rate and rhythm, no murmurs appreciated Respiratory: Lungs clear to auscultation bilaterally, No increased work of breathing Abdominal: Soft, non-tender, non-distended. Bowel sounds present. Extremities: RLE with clean, dry dressing over right heel. Bilateral LE edema up to the calf. Results & Data Results & Data Vital Signs (Past 12 Hours) Vital Signs Temp Pulse Resp BP Pulse Ox O2 Del Method O2 Flow Rate 08/01/23 23:30 Nasal Cannula 2 08/01/23 23:30 36.8 C 72 18 157/66 H 99 Nasal Cannula 2 08/01/23 22:54 36.9 C 71 18 147/73 H 99 Nasal Cannula 1.5 08/01/23 21:45 Nasal Cannula 2 08/01/23 19:58 36.5 C 69 22 158/78 H 99 Nasal Cannula Resident Activity Tracking Resident Involvement: Resident Care Provided Care Provided: Adult Hospital Medicine (1) Ulcer of right heel Non-pressure ulcer stage: with necrosis of bone Qualified Code(s): L97.414 - Non-pressure chronic ulcer of right heel and midfoot with necrosis of bone (2) Diabetic foot ulcer Diabetes mellitus type: type 2 Diabetic foot ulcer location: heel Latera lity: right Non-pressure ulcer stage: with fat layer exposed Qualified Code(s): E11.621 - Type 2 diabetes mellitus with foot ulcer; L97.412 - Non- pressure chronic ulcer of right heel and midfoot with fat layer exposed (8) Hypertension Hypertension type: primary hypertension Qualified Code(s): I10 - Essential (primary) hypertension (10) Anemia Anemia type: unspecified type Qualified Code(s): D64.9 - Anemia, unspecified
[2023-08-02 08:13] LABS: Hematocrit (blood only) 28.1 % (37.0-47.0); Mean Corpuscular Hemoglobin 27.7 pg (25.0-34.0); Mean Corpuscular Volume 86.5 fL (80.0-100.0); Mean Platelet Volume 10.8 fL (9.4-12.4); Platelet Count 345 K/uL (130-400); RDW Coefficient of Variation 14.7 % (11.5-14.5); RDW Standard Deviation 46.1 fL (36.4-46.3); Red Blood Count 3.25 M/uL (4.20-5.40)
[2023-08-02 08:33] LABS: BUN Creatinine Ratio 29.7 (10-20); Creatinine Clr Calc Pharmacy 31.9 ml/min; Est GFR (African American) 24.6 ml/min; Est GFR (Non-African American) 21.2 ml/min; Magnesium 1.6 mg/dl (1.7-2.4); Phosphorus 3.9 mg/dl (2.5-4.9)
[2023-08-02] MEDS: MAGNESIUM SULFATE / D5W 1 GM/100 ML BAG IV ONE (09:00)
--- NOTE | 2023-08-02 13:07 | Billing Data ---
Date of Service August 02, 2023 Coding Level of Care Code 21108 SUB INP/OBS CARE
[2023-08-02] MEDS ORDERED: LIDOCAINE 2% 2 ML VIAL/AMP(20MG/ML) INFIL ONE ×2 (16:27→17:57)
[2023-08-02] MEDS ORDERED: PROPOFOL IV EMULSION 10 MG/ML 20 ML VIAL IV ONE ×2 (16:27→16:28)
[2023-08-02] MEDS ORDERED: MIDAZOLAM HCL 1 MG/ML 2ML VIAL ONE (16:27)
[2023-08-02] MEDS ORDERED: fentaNYL citrate PF 100 MCG/2 ML VIAL ONE (16:27)
--- NOTE | 2023-08-02 16:35 | History & Physical Bridge Note ---
Date of Service August 02, 2023 History & Physical Bridge Note I have examined the patient, reviewed the History & Physical and in the interval since the performance of the History & Physical I have noted the following changes of clinical significance: no changes noted. Anxious for surgery. Plan reviewed with patient. All questions answered. Consent obtained for this procedure.
--- NOTE | 2023-08-02 17:23 | Anesthesiology Consultation ---
Date of Service August 02, 2023 Assessment & Plan Chart Review Chart Review: Acceptable Risk for Surgery and Patient NOT seen in Pre Admission Testing Consults Requested none ASA ASA4 Proposed Anesthesia Anesthesia Type: MAC Risk / Benefits Reviewed With: PT / POA / Parent / Guardian, Accepts Plan and Informed Consent Obtained History Surgery Operation Date: 08/02/23 08:20 Proposed Procedures p Right Partial Calcanectomy - Rohith Self, KING Height/Weight Height: 5 ft 2 in Weight: 131.9 kg Allergies Allergy/AdvReac Type Severity Reaction Status Date / Time amoxicillin Allergy Intermediate hives Verified 07/27/23 20:52 dextromethorphan Allergy Intermediate Hives Verified 07/27/23 20:52 [From NyQuil] doxylamine [From NyQuil] Allergy Intermediate Hives Verified 07/27/23 20:52 latex Allergy Intermediate RASH Verified 07/27/23 20:52 Sulfa (Sulfonamide Allergy Intermediate RASH Verified 07/27/23 20:52 Antibiotics) clarithromycin AdvReac Intermediate HEART RACES Verified 07/27/23 20:52 Arnold's multigrain bread Allergy Intermediate Hives Uncoded 07/27/23 20:52 Medications Home Medications Medication Instructions Recorded Confirmed Last Taken amitriptyline 50 mg tablet 100 mg PO HS 12/06/17 07/27/23 07/26/23 fluticasone propionate 50 1 spray intranasal QAM 03/10/19 07/27/23 07/27/23 mcg/actuation nasal spray,suspension levothyroxine 175 mcg tablet 175 mcg PO QAM 03/10/19 07/27/23 07/27/23 (Synthroid) atorvastatin 80 mg tablet 80 mg PO HS 02/19/20 07/27/23 07/26/23 loratadine 10 mg tablet 10 mg PO DAILY PRN Allergy Symptoms 01/19/21 07/27/23 01/11/23 pen needle, diabetic 32 gauge x 06/20/21 05/03/23 Unknown " (BD Ultra-Fine Siria Pen Needle) blood sugar diagnostic (FreeStyle 06/29/21 05/03/23 Unknown Precision Perico Strips) flash glucose scanning reader 06/29/21 05/03/23 Unknown (FreeStyle Davy 14 Day [place]) flash glucose sensor (FreeStyle 06/29/21 05/03/23 Unknown Davy 14 Day Sensor kit) lancets 30 gauge (OneTouch Delica 06/29/21 05/03/23 Unknown Lancets) cholecalciferol (vitamin D3) 50 50 mcg PO QAM 02/09/22 07/27/23 07/27/23 mcg (2,000 unit) capsule cyanocobalamin (vitamin B-12) 1,000 mcg PO DAILY #30 tabs 01/16/23 07/27/23 07/27/23 1,000 mcg tablet ferrous sulfate 325 mg (65 mg 325 mg PO DAILY #30 tabs 01/16/23 07/27/23 07/27/23 iron) tablet folic acid 1 mg tablet 1,000 mcg PO DAILY #30 tabs 01/16/23 07/27/23 07/27/23 albuterol sulfate 90 mcg/actuation 2 puff inhalation QID PRN wheezing 03/19/23 07/27/23 Unknown aerosol inhaler omeprazole 20 mg capsule,delayed 20 mg PO DAILY 03/19/23 07/27/23 07/27/23 release acetaminophen 325 mg tablet 650 mg (2 x 325 mg) PO Q4H PRN 04/12/23 07/27/23 07/27/23 pain #30 tabs amlodipine 10 mg tablet 10 mg PO DAILY #30 tabs 04/12/23 07/27/23 07/27/23 insulin aspart U-100 100 unit/mL 20 unit subcut TIDWMEAL 04/13/23 07/27/23 07/27/23 subcutaneous solution (Novolog U-100 Insulin aspart) bumetanide 1 mg tablet 0 mg PO QAM 07/27/23 07/27/23 07/27/23 insulin detemir U-100 100 unit/mL 20 unit subcut BID 07/27/23 07/27/23 07/27/23 (3 mL) subcutaneous pen (Levemir FlexPen) simvastatin 40 mg tablet 40 mg PO HS 07/27/23 07/27/23 07/26/23 Active Medications Generic Name Dose Route Start Last Admin Trade Name Freq PRN Reason Stop Dose Admin Acetaminophen 1,000 mg 07/30/23 21:00 08/02/23 14:12 Acetaminophen 500 Mg Tab PO 08/29/23 20:59 1,000 mg TID WESLY Administration Amitriptyline HCl 100 mg 07/28/23 21:00 08/01/23 21:33 Amitriptyline Hcl 100 Mg Tab PO 08/27/23 20:59 100 mg HS WESLY Administration Amlodipine Besylate 10 mg 07/28/23 09:00 08/02/23 07:57 Amlodipine Besylate 5 Mg Tab PO 08/27/23 08:59 10 mg DAILY WESLY Administration Atorvastatin Calcium 80 mg 07/28/23 21:00 08/01/23 21:34 Atorvastatin 40 Mg Tab PO 08/27/23 20:59 80 mg HS WESLY Administration Bumetanide 2 mg 07/29/23 09:00 07/31/23 08:38 Bumetanide 1 Mg Tab PO 08/28/23 08:59 2 mg QAM WESLY Administration Cyanocobalamin 1,000 mcg 07/28/23 09:00 08/02/23 09:00 Cyanocobalamin (B-12) 500 Mcg Tablet PO 08/27/23 08:59 1,000 mcg DAILY WESLY Administration Diclofenac Sodium 2 gm 07/30/23 21:00 08/02/23 15:48 Diclofenac Sod 1% Gel 100 Gm Tube EXT 08/29/23 20:59 2 gm QID WESLY Administration Protocol Ferrous Sulfate 325 mg 07/28/23 09:00 08/02/23 07:57 Ferrous Sulfate 325 Mg Tab PO 08/27/23 08:59 325 mg DAILY WESLY Administration Fluticasone Propionate 1 sprays 07/28/23 09:00 08/02/23 08:00 Fluticasone Propionate Na Spr 16 Gm Btl ROSA 08/27/23 08:59 1 sprays QAM WESLY Administration Folic Acid 1 mg 07/28/23 09:00 08/02/23 07:57 Folic Acid 1 Mg Tab PO 08/27/23 08:59 1 mg DAILY WESLY Administration Heparin Sodium (Porcine) 7,500 units 07/28/23 09:00 08/01/23 21:36 Heparin Sod 5,000 Unit/0.5 Ml Vial SQ 08/27/23 08:59 7,500 units Q12 WESLY Administration Meropenem 500 mg/ Syringe 10 mls @ 2 mls/min 07/31/23 08:00 08/02/23 15:47 IV 09/11/23 07:59 2 mls/min Q8H WESLY Administration Protocol Insulin Aspart 0 units 08/02/23 06:00 08/02/23 12:05 Insulin Aspart Per Unit Charge SC 09/01/23 05:59 1 units Q6 WESLY Administration Insulin Glargine 5 units 07/31/23 21:00 08/02/23 08:24 Lantus Per Unit Charge SQ 08/30/23 20:59 5 units BID WESLY Administration Lactobacillus Acidophilus 1 pkt 07/31/23 12:00 08/02/23 15:47 Lactobacillus Acidophilus 1 Gm Pack PO 08/30/23 11:59 Not Given TIDM WESLY Levothyroxine Sodium 175 mcg 07/28/23 06:30 08/02/23 05:41 Levothyroxine Sodium 175 Mcg Tablet PO 08/27/23 06:29 175 mcg DAILYBB WESLY Administration Loratadine 10 mg 07/27/23 23:49 08/02/23 02:40 Loratadine 10 Mg Tab PO 08/26/23 23:48 10 mg DAILY PRN Administration Allergy Symptoms Pantoprazole Sodium 40 mg 07/28/23 09:00 08/02/23 07:57 Pantoprazole 40 Mg Tab PO 08/27/23 08:59 40 mg DAILY WESLY Administration Polyethylene Glycol 17 gm 07/27/23 23:49 08/02/23 07:59 Polyethylene (Miralax) 17 Gm Pack PO 08/26/23 23:48 Not Given BID WESLY Vitamin D 50 mcg 07/28/23 09:00 08/02/23 07:58 Cholecalciferol 25 Mcg (1000 Units) Tab PO 08/27/23 08:59 50 mcg QAM WESLY Administration NPO Date Last Intake of Fluids: 08/02/23 Time Last Intake of Fluids: 17:00 Date Last Intake of Solids: 08/01/23 Time Last Intake of Solids: 23:59 Past Medical History Medical History Fall Pseudomonas infection History of anesthesia reaction woke up during shoulder arthroscopy RBBB Hypoxia Hyperglycemia due to type 2 diabetes mellitus Pneumonia due to COVID-19 virus COVID-19 hx of in 2019--per pt was hospitalized for COVID--states no symptoms currently Bifascicular block Foot drop LEFT Chronic back pain Hx of irritable bowel syndrome Cataract Bilateral Umbilical hernia Hiatal hernia PTSD (post-traumatic stress disorder) History of diverticulitis Tear of medial meniscus of right knee, current Diabetes mellitus with hyperglycemia, with long-term current use of insulin Neck pain Narrowing of C6-C7 with bone spurs. CAUSES NUMBNESS IN LEFT ARM Anxiety Hyperlipidemia Hypertension History of migraine Hyperosmolar hyponatremia Fibromyalgia Exercise / Class Metabolic Activity II 4-5 Yardwork/Stairs/Walk up hill Past Family History Family History Grandfather Diabetes Mother Myocardial infarction Heart disease Tobacco abuse Hx of CABG Family/Other Family history of diabetes mellitus Brother Family history of diabetes mellitus Father Aortic aneurysm Grandmother (Paternal) Cerebral aneurysm Stroke Other Family history of colon cancer in mother Past Surgical History Surgical History History of repair of right rotator cuff History of repair of left rotator cuff History of repair of ACL L S/P rotator cuff repair History of arthroscopy of right shoulder History of dilatation and curettage History of repair of ACL R History of esophagogastroduodenoscopy (EGD) History of colonoscopy History of D&C Past Anesthesia History No Hx of Anesthesia Complications and No Family Hx of Anesthesia Complications History of PONV No Hx of PONV and No Hx of Motion Sickness Social History Smoking Status: Never smoker Do You Dip or Chew Tobacco: No Hx Alcohol Use: No Hx Substance Use: No substance use type: does not use Physical Exam Vital Signs Last Vital Signs Temp 36.6 C 08/02/23 17:05 Pulse 78 08/02/23 17:05 Resp 20 08/02/23 17:05 BP 169/73 H 08/02/23 17:05 Pulse Ox 100 08/02/23 17:05 O2 Del Method Room Air 08/02/23 17:05 O2 Flow Rate 2 08/02/23 15:00 Constitutional + morbidly obese and + obese ENMT Mouth: no dentition abnormality Thyromental Distance: > or= 3.5 Finger Breadths Mallampati Class: II Neck normal visual inspection Respiratory normal respiratory effort Auscultation: lungs clear to auscultation bilaterally Cardiovascular Rate/Rhythm: regular rate and regular rhythm Psychiatric Orientation: alert Testing Laboratory Results 08/02/23 07:44 08/02/23 07:44 PT 12.0 Seconds (9.0-12.0) 07/27/23 18:09 INR 1.1 (0.9-1.1) 07/27/23 18:09 Urine Color Yellow 07/28/23 Unknown Urine Appearance Clear (Clear) 07/28/23 Unknown Urine pH 7.0 (4.5-7.5) 07/28/23 Unknown Ur Specific [place] 1.012 (1.000-1.030) 07/28/23 Unknown Urine Protein 3+ (Negative) H 07/28/23 Unknown Urine Glucose (UA) 1+ (Negative) H 07/28/23 Unknown Urine Ketones Negative (Negative) 07/28/23 Unknown Urine Nitrite Negative (Negative) 07/28/23 Unknown Ur Leukocyte Esterase Negative (Negative) 07/28/23 Unknown Urine WBC (Auto) 0-5 /hpf (0-5) 07/28/23 Unknown Urine RBC (Auto) 3-5 /hpf (0-2) H 07/28/23 Unknown U Hyaline Cast (Auto) 3-5 /lpf (0-2) H 07/28/23 Unknown U Epithel Cells (Auto) 0-2 /hpf (0-2) 07/28/23 Unknown Urine Bacteria (Auto) None Seen (None Seen) 07/28/23 Unknown Blood Type A Positive 07/29/23 06:58 Antibody Screen NEGATIVE 07/29/23 06:58 07/27/23 20:52 Aerobic Blood Culture - Final Blood No growth in Aerobic bottle after 5 days. Anaerobic Blood Culture - Final No growth in Anaerobic bottle after 5 days. 07/27/23 21:12 Aerobic Blood Culture - Final Blood No growth in Aerobic bottle after 5 days. Anaerobic Blood Culture - Final 07/28/23 21:00 Gram Stain - Final Foot,Right Wound Culture - Final Pseudomonas aeruginosa 08/02/23 08/02/23 08/02/23 17:11 12:00 05:40 POC Glucose 111 H 142 H 132 H
[2023-08-02] MEDS ORDERED: fentaNYL citrate PF 100 MCG/2 ML VIAL IV PRN (17:24)
[2023-08-02] MEDS ORDERED: ePHEDrine sulfate 50 MG/ML AMP IV PRN (17:24)
[2023-08-02] MEDS ORDERED: ATROPINE SULFATE 0.1 MG/ML 10ML SYR IV PRN (17:24)
[2023-08-02] MEDS ORDERED: ONDANSETRON INJ 2 MG/ML 2 ML VIAL IV PRN (17:24)
[2023-08-02] MEDS: BUPIVACAINE 0.5 % 5 MG/1 ML MPF 30ML VIAL ONE (18:14)
--- NOTE | 2023-08-02 18:34 | Post Operative Brief Note ---
Immediate Post Op Note v1 Date of Surgery August 02, 2023 Pre & Post Diagnosis Preoperative Diagnosis: Right calcaneus osteomyelitis Postoperative Diagnosis: Same I identified the patient and participated in the time-out.: Yes Procedure Right partial calcanectomy Surgeon Rohith Self DPM Human Resources Trainer None Estimated Blood Loss 30 Findings Consistent with Post-Op Diagnosis Specimens Right calcaneus C&S Right calcaneus pathology Anesthesia Type MAC Complications none Disposition Accompanied Patient To Recovery: Yes Disposition: Recovery Room
--- NOTE | 2023-08-02 18:54 | Anesthesiology Progress Note ---
Date of Service August 02, 2023 Anesthesia Post Procedure Vital Signs Vital Signs: Temp Pulse Pulse Resp BP BP Pulse Ox 08/02/23 18:45 67 16 153/67 H 100 08/02/23 18:35 36.4 C L 68 18 147/61 H 100 08/02/23 17:05 36.6 C 78 20 169/73 H 100 08/02/23 15:00 36.7 C 76 16 149/65 H 99 08/02/23 07:34 36.4 C L 70 18 172/67 H 100 08/02/23 07:23 08/01/23 23:30 08/01/23 23:30 36.8 C 72 18 157/66 H 99 08/01/23 22:54 36.9 C 71 18 147/73 H 99 08/01/23 21:45 08/01/23 19:58 36.5 C 69 22 158/78 H 99 O2 Del Method O2 Flow Rate 08/02/23 18:45 Nasal Cannula 2 08/02/23 18:35 Nasal Cannula 2 08/02/23 17:05 Room Air 08/02/23 15:00 Nasal Cannula 2 08/02/23 07:34 Nasal Cannula 4 08/02/23 07:23 Nasal Cannula 2 08/01/23 23:30 Nasal Cannula 2 08/01/23 23:30 Nasal Cannula 2 08/01/23 22:54 Nasal Cannula 1.5 08/01/23 21:45 Nasal Cannula 2 08/01/23 19:58 Nasal Cannula Pain Intensity Back: Pain Intensity: 5 Right Foot: Pain Intensity: 6 Right Shoulder: Pain Intensity: 2 Transfer of Care Handoff Completed per policy Notes Mental Status: alert / awake / arousable Patient Amnestic to Procedure: Yes Nausea / Vomiting: adequately controlled Pain: adequately controlled Airway Patency, RR, SpO2: stable & adequate BP & HR: stable & adequate Hydration State: stable & adequate Anesthetic Complications: no major complications apparent
--- NOTE | 2023-08-02 19:00 | XRay Report ---
RIGHT FOOT 2 VIEWS CLINICAL HISTORY: Postoperative examination. FINDINGS: AP and crosstable lateral views of the right foot are compared to study dated 07/27/2023. Th e skeletal structures are osteopenic. No acute fracture is seen. There has been osteotomy along the d orsal/plantar aspect of the calcaneus. A plantar heel spur is observed. Mild osteoarthritic change is noted throughout the foot, greatest at the first metatarsophalangeal joint. Diffuse soft tissue betzaida a is present throughout the foot, with evidence of a wound overlying the heel. Advanced atherosclerot ic calcification is noted in the regional arteries. IMPRESSION: 1. Diffuse soft tissue edema with postsurgical change from calcaneal osteotomy. 2. No acute fracture is seen. Electronically signed by: Chilango Vora M.D. 08/02/2023 6:59 PM
[2023-08-02] MEDS: PROCHLORPERAZINE 10 MG in SYRINGE 8 ML IV ONE (21:07)
[2023-08-03 05:49] LABS: Hematocrit (blood only) 25.3 % (37.0-47.0); Hemoglobin 8.1 g/dl (12.0-16.0); Mean Corpuscular Volume 87.5 fL (80.0-100.0); Mean Platelet Volume 10.8 fL (9.4-12.4); Platelet Count 324 K/uL (130-400); RDW Coefficient of Variation 14.8 % (11.5-14.5); RDW Standard Deviation 47.7 fL (36.4-46.3); Red Blood Count 2.89 M/uL (4.20-5.40); White Blood Count 10.11 K/ul (4.8-10.8)
[2023-08-03 06:02] LABS: BUN Creatinine Ratio 28.3 (10-20); Calcium 8.4 mg/dl (8.6-10.3); Creatinine Clr Calc Pharmacy 33.2 ml/min; Est GFR (African American) 26.3 ml/min; Est GFR (Non-African American) 22.7 ml/min; Magnesium 1.7 mg/dl (1.7-2.4); Potassium 3.9 mmol/L (3.5-5.1)
[2023-08-03] MEDS: FLUCONAZOLE 50 MG TAB PO ONE (08:33)
--- NOTE | 2023-08-03 09:25 | Infectious Disease Progress Nt ---
Date of Service August 03, 2023 Assessment & Plan (1) Ulcer of right heel: (2) Acute osteomyelitis of right calcaneus: (3) CKD (chronic kidney disease) stage 4, GFR 15-29 ml/min: Plan 63yo F with h/o diabetes, chronic right heel ulcer, CKD IV, morbid obesity with ambulatory dysfunction, HFpEF, fibromyalgia, HTN, HLD, recent admission 05/04- 05/23 with a mechanical fall f/w UTI s/p keflex x 7d who presented on 07/26, after being home 3 days from rehab, with yellow right heel wound drainage, progressive SOB, and low back pain with difficulty getting out of bed. In the ED, she was noted to have some hypoxia to 85% and was placed on NC. Also noted to have purulent drainage form her right heel. Otherwise she has been afebrile, with stable BPs. Initial labs with WBC 14.17>>8.86, Cr 2.07>>2.51 (at baseline). LFT wnl. Troponin elevated. UA negative. CT L spine negative. CXR with pulmonary edema. Right foot XR with diffuse soft tissue swelling. She was started on cefepime for her heel ulcer and diuresis for pulmonary edema. R foot MRI done which showed abnormal marrow signal and small focal area of cortical destruction at plantar surface of posterior calcaneus c/w OM. ID consulted 07/30 for assistance. Given resistance pattern of Pseudomonas from WCX, cefepime changed to meropenem. ESR 101, CRP 3.94. S/p OR 08/01 and underwent right partial calcanectomy. Awaiting cultures from OR which will direct antibiotics. Plan will be for 6 weeks of IV antibiotics starting from day of surgery. Note her QTc is 499 with bifascicular block, which makes using fluoroquinolones difficult. Abx Cefepime 07/26-07/30 Meropenem 07/30- Micro 07/27 WCX: P aeruginosa (I-cefepime, S-cipro, nicolle) 08/01 OR cx: pending # Right chronic diabetic heel ulcer with underlying calcaneal OM s/p partial calcanectomy 08/01 # WCx with PsA # CKD IV # Allergy to amoxicillin (hives), sulfa (rash), clarithromycin (?true allergy) - f/u OR cx - continue meropenem 500mg IV q8h - she will need 6 weeks of IV abx starting from 08/01, eot 09/12 - final regimen pending OR cx results. If no growth, then will continue on current regimen with meropenem. (please note meropenem cannot be changed to ertapenem on discharge since it doesnt cover Pseudomonas) - when shes ready for discharge, she will need weekly CBC w diff, CMP, and ESR/CRP. Follow up with local ID or PCP ID will continue to follow. If questions or concerns, contact Infectious Disease Call Center . Karlee Garcia MD [facility], Division of Infectious Diseases [facility]: [phone] Admission and Anticipated Discharge Date Admission Date: July 27, 2023 Subjective Subsequent visit was provided via telemedicine using two-way real-time interactive telecommunication between the patient and the telemedicine provider. For the duration of the visit, the provider was performing the assessment from a different facility than the patient. This includesuse of bluetooth stethoscope forauscultationperformed by the telepresenter that the telemedicine provider can hear if described in the physical exam. Commissioning Specialist contact information: Please call [facility] Call Center . (Phone Number For Physician Use Only) After establishing a telemedicine visit, patient was: Patient was verified with two unique identifiers, Patient/authorized rep acknowledged consent and understanding and Gave permission to continue telehealth session Time Spent with Patient: Subsequent => 55 min Patient doing well. She says she has tremors that is new from admission and also noticed some issues with her tongue. Notes soft stools. Physical Exam Physical Exam: General: Awake, alert, no acute distress HEENT: NC/AT, EOMI, mmm Neck: supple Lungs: respirations non-labored Heart: nl peripheral perfusion Abdomen: soft, NT/ND Ext: bl mild LE edema; right foot with dressing in place Skin: no rash Neuro: moving all extremities Results & Data Vital Signs (Past 12 Hours) Vital Signs Temp Pulse Resp BP Pulse Ox O2 Del Method O2 Flow Rate 08/03/23 07:05 36.8 C 69 16 151/71 H 98 Room Air 08/03/23 02:59 36.7 C 67 16 167/82 H 98 Nasal Cannula 2 08/02/23 23:19 Nasal Cannula 2 08/02/23 23:09 36.4 C L 69 16 148/71 H 98 Nasal Cannula 2 08/02/23 21:52 66 136/71 Laboratory Results Labs reviewed. (1) Ulcer of right heel Non-pressure ulcer stage: with necrosis of bone Qualified Code(s): L97.414 - Non-pressure chronic ulcer of right heel and midfoot with necrosis of bone
--- NOTE | 2023-08-03 10:07 | Hospitalist Progress Note ---
Date of Service August 03, 2023 Assessment & Plan (1) Ulcer of right heel: (2) Diabetic foot ulcer: (3) CKD (chronic kidney disease) stage 4, GFR 15-29 ml/min: (4) Ambulatory dysfunction: (5) (HFpEF) heart failure with preserved ejection fraction: (6) SOB (shortness of breath): (7) Hypercholesteremia: (8) Hypertension: (9) Anxiety: (10) Anemia: (11) Hyponatremia: Plan Osteomyelitis/ Right heel diabetic foot ulcer: MRI ankle consistent with osteomyelitis Wound culture taken 07/27, + pseudomonas, intermediate sensitivity to Cefepime H/o Pseudomonas on 11/21/2022 and Staph aureus on 01/04/2023 Blood cultures negative at 48 hours ID consulted, appreciate recs: Continue Meropenem, will need 6 weeks of IV abx + weekly labs following discharge (CBC, CMP, ESR/CRP) Baseline ESR 101, CRP 3.94 Podiatry consulted, s/p partial calcanectomy, intraoperative would culture 08/01 negative gram stain, culture pending Wound care consulted, appreciate recs Pressure offloading heel Anemia: Low baseline hemoglobin likely in the setting of CKD, AM hemoglobin 8.1 Continue iron supplementation Recheck AM Hgb Transfusion threshold remains for Hgb<7 or symptomatic anemia Ambulatory Dysfunction: Patient lives alone, has difficulty getting up from current bed - will coordinate with case management to obtain hospital bed PT/OT recommending placement, CM following for dispo needs Pulmonary edema/HFpEF/hypertension: Currently without shortness of breath Outpatient prescriptions reviewed with pharmacy, last diuretic filled was Bumex 2mg daily -currently holding Bumex, consider restarting based on assessment of volume status Follow renal function panel and magnesium level CKD stage IV: Creatinine 2.07 on admission, with base range 2.29-2.48, AM Cr 2.23 QAM lab monitoring Hyponatremia: AM sodium 134, possibly due to chronic diuretic use vs poor nutrition Recheck AM labs Consider nutrition consult Diabetes mellitus: Continue Lantus to 5U BID Placed on Accu-Cheks with NovoLog SSI Med/Tele VTE ppx: Resume Heparin in AM Diet: REHANA ALEJANDRE Full Code Admission and Anticipated Discharge Date Admission Date: July 27, 2023 Supervising Physician Co-Signing Physician Notes I personally examined the patient and verified all parson points of history and exam, discussed case, and agree with decision making with Dr Heath doing well no complaints. would [facility] for rehab. Vitals noted, in general she is awake and alert pleasant no distress. HEENT normocephalic atraumatic mucous membranes moist. Breathing un labored no accessory muscle use good effort no conversational dyspnea Skin shows no rashes no pallor or icterus. Heel ulcerdiabetic/venous stasisnow unfortunately with underlying osteomyelitis Pseudomonas Continue meropenem. Greatly appreciate podiatry taking her to the OR. have had extensive discussions on how significant her problem this is. Patient and advocate are aware and understanding that the situation may need to escalate.but thus far doing well. Anemia, hypochromic, acute on chronic in the setting of CKDIV - transfused 1 U PRBC , Hemodynamically stable, no signs of blood loss Hyponatremia - likely displaced arterial volume with LE swelling. Improving w/ fluid restriction, encourage PO intake of meals with low albumin. Consider nutrition consult. Pulmonary edema with acute on chronic HFpEF/acute on chronic diastolic CHF present on admission treated and appears to be resolved; with baseline and CKD 4it is difficult to tell her volume statusat times she requires diuresis for her chronic diastolic CHF, other times she appears to be over diuresed with the diuretics obviously not being useful whenever her swelling is just venous stasis, a very difficult fluid balance, her morbid obesity with BMI 54.2 making it much more difficult to discern her volume status as well as contributing to the venous stasis. today again appears euvolemic. Continue to hold diuretic and follow; increase in O2 seems to have been arbitrary - i resumed her prior 2L Orthopedic painsappears to have supraspinatus tendinitis and bilateral knee arthritis flaresTylenol [id number], tramadol as needed, Voltaren gel to right shoulder (minimal systemic absorption) DVT prophylaxisheparin subcu Subjective Pt evaluated at bedside, notes that surgery went well, pain is well controlled thus far with Tylenol. Notes feeling of a bit more chest congestion but denies overt SOB. Denies fever/ chills. Continues to note tremor in bilateral UEs, overall improved compared to yesterday. Review of Systems Review of Systems: as per HPI Physical Exam Physical Exam: General: Alert and oriented. No acute distress Cardiac: Regular rate and rhythm, no murmurs appreciated Respiratory: Lungs clear to auscultation bilaterally, No increased work of breathing Abdominal: Soft, non-tender, non-distended. Bowel sounds present. Extremities: RLE with clean, dry dressing over right heel. Bilateral LE edema up to the calf. Results & Data Results & Data Vital Signs (Past 12 Hours) Vital Signs Temp Pulse Resp BP Pulse Ox O2 Del Method O2 Flow Rate 08/03/23 07:05 36.8 C 69 16 151/71 H 98 Room Air 08/03/23 02:59 36.7 C 67 16 167/82 H 98 Nasal Cannula 2 08/02/23 23:19 Nasal Cannula 2 08/02/23 23:09 36.4 C L 69 16 148/71 H 98 Nasal Cannula 2 Resident Activity Tracking Resident Involvement: Resident Care Provided Care Provided: [facility] (1) Ulcer of right heel Non-pressure ulcer stage: with necrosis of bone Qualified Code(s): L97.414 - Non-pressure chronic ulcer of right heel and midfoot with necrosis of bone (2) Diabetic foot ulcer Diabetes mellitus type: type 2 Diabetic foot ulcer location: heel Laterality: right Non-pressure ulcer stage: with fat layer exposed Qualified Code(s): E11.621 - Type 2 diabetes mellitus with foot ulcer; L97.412 - Non- pressure chronic ulcer of right heel and midfoot with fat layer exposed (8) Hypertension Hypertension type: primary hypertension Qualified Code(s): I10 - Essential (primary) hypertension (10) Anemia Anemia type: unspecified type Qualified Code(s): D64.9 - Anemia, unspecified
[2023-08-03] MEDS: MEROPENEM 1,000 MG OVER 3 HRS IV SCH (18:01)
--- NOTE | 2023-08-03 19:54 | Billing Data ---
Date of Service August 03, 2023 Coding Level of Care Code 16066 SUB INP/OBS CARE
[2023-08-04 06:50] LABS: Hemoglobin 8.3 g/dl (12.0-16.0); Mean Corpuscular Hemoglobin 27.8 pg (25.0-34.0); Mean Corpuscular Hgb Conc 31.9 g/dL (32.0-36.0); Mean Platelet Volume 11.2 fL (9.4-12.4); Platelet Count 344 K/uL (130-400); RDW Coefficient of Variation 14.8 % (11.5-14.5); RDW Standard Deviation 47.2 fL (36.4-46.3); Red Blood Count 2.99 M/uL (4.20-5.40); White Blood Count 12.21 K/ul (4.8-10.8)
[2023-08-04 07:02] LABS: BUN Creatinine Ratio 24.9 (10-20); Calcium 8.4 mg/dl (8.6-10.3); Creatinine Clr Calc Pharmacy 30.9 ml/min; Est GFR (Non-African American) 20.7 ml/min; Magnesium 1.6 mg/dl (1.7-2.4); Potassium 4.1 mmol/L (3.5-5.1)
--- NOTE | 2023-08-04 07:47 | Hospitalist Progress Note ---
Date of Service August 04, 2023 Assessment & Plan (1) Ulcer of right heel: (2) Diabetic foot ulcer: (3) CKD (chronic kidney disease) stage 4, GFR 15-29 ml/min: (4) Ambulatory dysfunction: (5) (HFpEF) heart failure with preserved ejection fraction: (6) SOB (shortness of breath): (7) Hypercholesteremia: (8) Hypertension: (9) Anxiety: (10) Anemia: (11) Hyponatremia: Plan Osteomyelitis/ Right heel diabetic foot ulcer: MRI ankle consistent with osteomyelitis Wound culture taken 07/27, + pseudomonas, intermediate sensitivity to Cefepime H/o Pseudomonas on 11/21/2022 and Staph aureus on 01/04/2023 Blood cultures negative at 48 hours ID consulted, appreciate recs: Continue Meropenem, will need 6 weeks of IV abx + weekly labs following discharge (CBC, CMP, ESR/CRP) Baseline ESR 101, CRP 3.94 Podiatry consulted, s/p partial calcanectomy 08/01, intraoperative would culture 08/01 negative gram stain, culture pending Wound care consulted, appreciate recs Anemia: Low baseline hemoglobin likely in the setting of CKD, AM hemoglobin 8.3 Continue iron supplementation Recheck AM Hgb Transfusion threshold remains for Hgb<7 or symptomatic anemia Ambulatory Dysfunction: Patient lives alone, has difficulty getting up from current bed - will coordinate with case management to obtain hospital bed PT/OT recommending placement Patient essentially stable for discharge at this point, case management follo wing for dispo needs Pulmonary edema/HFpEF/hypertension: Currently without shortness of breath Outpatient prescriptions reviewed with pharmacy, last diuretic filled was Bumex 2mg daily -currently holding Bumex, consider restarting based on assessment of volume status Follow renal function panel and magnesium level CKD stage IV: Creatinine 2.07 on admission, with base range 2.29-2.48, AM Cr 2.41 QAM lab monitoring Hyponatremia: AM sodium 134, possibly due to chronic diuretic use vs poor nutrition Recheck AM labs Consider nutrition consult Diabetes mellitus: Continue Lantus to 5U BID Placed on Accu-Cheks with NovoLog SSI Med/Tele VTE ppx: Heparin Diet: REHANA ALEJANDRE Full Code Admission and Anticipated Discharge Date Admission Date: July 27, 2023 Supervising Physician Co-Signing Physician Notes I personally examined the patient and verified all parson points of history and exam, discussed case, and agree with decision making with Dr Heath poor appetite today. Not quite nausea but also does not feel hungry. No abdominal pain.. Vitals noted, in general she is awake and alert pleasant no distress. HEENT normocephalic atraumatic mucous membranes moist. Breathing unlabored no accessory muscle use good effort no conversational dyspnea. Abdomen soft nondistended nontender no epigastric tenderness. Skin shows no rashes no pallor or icterus. Heel ulcerdiabetic/venous stasisnow unfortunately with underlying osteomyelitis Pseudomonas Continue meropenem. Greatly appreciate podiatry taking her to the OR. have had extensive discussions on how significant her problem this is. Patient and advocate are aware and understanding that the situation may need to escalate.but thus far doing well. Surgical cultures negative which is somewhat reassuring that we are probably well ahead of the infection. Continue meropenemwill need prolonged treatment. Upset stomachfortunately nonspecific, no exam consistent with stress ulcer/gastritis/etc.for now escalate mucosal treatment with twice daily Pepcid, twice daily Protonix, Compazine as needed nausea. Encouraged p.o. intake. Anemia, hypochromic, acute on chronic in the setting of CKDIV - transfused 1 U PRBC , Hemodynamically stable, no signs of blood loss Hyponatremia - likely displaced arterial volume with LE swelling. Improving w/ fluid restriction, encourage PO intake of meals with low albumin. Consider nutrition consult. Pulmonary edema with acute on chronic HFpEF/acute on chronic diastolic CHF present on admission treated and appears to be resolved; with baseline and CKD 4it is difficult to tell her volume statusat times she requires diuresis for her chronic diastolic CHF, other times she appears to be over diuresed with the diuretics obviously not being useful whenever her swelling is just venous stasis, a very difficult fluid balance, her morbid obesity with BMI 54.2 making it much more difficult to discern her volume status as well as contributing to the venous stasis. today again appears euvolemic. No respiratory symptoms today either. Orthopedic painsappears to have supraspinatus tendinitis and bilateral knee arthritis flaresTylenol [id number], tramadol as needed, Voltaren gel to right shoulder (minimal systemic absorption) DVT prophylaxisheparin subcu Subjective Pt evaluated at bedside, notes that pain is well controlled. Notes some sinus congestion, which she attributes to allergies, but denies SOB. Denies fever/ chills. Review of Systems Review of Systems: as per HPI Physical Exam Physical Exam: General: Alert and oriented. No acute distress Cardiac: Regular rate and rhythm, no murmurs appreciated Respiratory: Lungs clear to auscultation bilaterally, No increased work of breathing Abdominal: Soft, non-tender, non-distended. Bowel sounds present. Extremities: RLE with wound vac. Bilateral LE edema up to the calf. Results & Data Results & Data Vital Signs (Past 12 Hours) Vital Signs Temp Pulse Resp BP Pulse Ox O2 Del Method O2 Flow Rate 08/03/23 22:15 36.9 C 74 18 161/72 H 96 Room Air 08/03/23 22:10 Nasal Cannula 2 Resident Activity Tracking Resident Involvement: Resident Care Provided Care Provided: Adult Hospital Medicine (1) Ulcer of right heel Non-pressure ulcer stage: with necrosis of bone Qualified Code(s): L97.414 - Non-pressure chronic ulcer of right heel and midfoot with necrosis of bone (2) Diabetic foot ulcer Diabetes mellitus type: type 2 Diabetic foot ulcer location: heel Laterality: right Non-pressure ulcer stage: with fat layer exposed Qualified Code(s): E11.621 - Type 2 diabetes mellitus with foot ulcer; L97.412 - Non- pressure chronic ulcer of right heel and midfoot with fat layer exposed (8) Hypertension Hypertension type: primary hypertension Qualified Code(s): I10 - Essential (primary) hypertension (10) Anemia Anemia type: unspecified type Qualified Code(s): D64.9 - Anemia, unspecified
[2023-08-04] MEDS: MAGNESIUM SULFATE / D5W 1 GM/100 ML BAG IV ONE (08:42)
[2023-08-04] MEDS: LORATADINE 10 MG TAB PO SCH (09:48)
--- NOTE | 2023-08-04 16:07 | Billing Data ---
Date of Service August 04, 2023 Coding Level of Care Code 47196 SUB INP/OBS CARE
[2023-08-04] MEDS: FAMOTIDINE 20 MG TAB PO ONE (17:00)
[2023-08-04] MEDS: PANTOprazole 40 MG TAB PO SCH (20:17)
[2023-08-04] MEDS: FAMOTIDINE 20 MG TAB PO SCH (20:20)
[2023-08-05 07:19] LABS: Hematocrit (blood only) 28.8 % (37.0-47.0); Hemoglobin 8.9 g/dl (12.0-16.0); Mean Corpuscular Hemoglobin 27.2 pg (25.0-34.0); Mean Corpuscular Hgb Conc 30.9 g/dL (32.0-36.0); Mean Corpuscular Volume 88.1 fL (80.0-100.0); Mean Platelet Volume 10.9 fL (9.4-12.4); Platelet Count 362 K/uL (130-400); RDW Standard Deviation 47.6 fL (36.4-46.3); Red Blood Count 3.27 M/uL (4.20-5.40); White Blood Count 12.47 K/ul (4.8-10.8)
[2023-08-05 07:46] LABS: BUN Creatinine Ratio 28.4 (10-20); Calcium 8.4 mg/dl (8.6-10.3); Creatinine Clr Calc Pharmacy 36.5 ml/min; Est GFR (African American) 29.3 ml/min; Est GFR (Non-African American) 25.3 ml/min; Magnesium 1.7 mg/dl (1.7-2.4); Potassium 4.2 mmol/L (3.5-5.1)
--- NOTE | 2023-08-05 09:50 | Hospitalist Progress Note ---
Date of Service August 05, 2023 Assessment & Plan (1) Ulcer of right heel: (2) Diabetic foot ulcer: (3) CKD (chronic kidney disease) stage 4, GFR 15-29 ml/min: (4) Ambulatory dysfunction: (5) (HFpEF) heart failure with preserved ejection fraction: (6) SOB (shortness of breath): (7) Hypercholesteremia: (8) Hypertension: (9) Anxiety: (10) Anemia: (11) Hyponatremia: Plan Osteomyelitis/ Right heel diabetic foot ulcer: MRI ankle consistent with osteomyelitis Wound culture taken 07/27, + pseudomonas, intermediate sensitivity to Cefepime H/o Pseudomonas on 11/21/2022 and Staph aureus on 01/04/2023 Blood cultures negative at 48 hours ID consulted, appreciate recs: Continue Meropenem, will need 6 weeks of IV abx + weekly labs following discharge (CBC, CMP, ESR/CRP) Baseline ESR 101, CRP 3.94 Podiatry consulted, s/p partial calcanectomy 08/01, intraoperative would culture 08/01 preliminarily negative Anemia: Low baseline hemoglobin likely in the setting of CKD, AM hemoglobin 8.9 Continue iron supplementation Recheck AM Hgb Transfusion threshold remains for Hgb<7 or symptomatic anemia Ambulatory Dysfunction: Patient lives alone, has difficulty getting up from current bed - will coordinate with case management to obtain hospital bed PT/OT recommending placement Patient essentially stable for discharge at this point, case management following for dispo needs Pulmonary edema/HFpEF/hypertension: Currently without shortness of breath Outpatient prescriptions reviewed with pharmacy, last diuretic filled was Bumex 2mg daily -currently holding Bumex, consider restarting based on assessment of volume status Follow renal function panel and magnesium level CKD stage IV: Creatinine 2.07 on admission, with base range 2.29-2.48, AM Cr 2.04 QAM lab monitoring Diabetes mellitus: Continue Lantus to 5U BID Placed on Accu-Cheks with NovoLog SSI Med/Tele VTE ppx: Heparin Diet: HH,CC Full Code Admission and Anticipated Discharge Date Admission Date: July 27, 2023 Supervising Physician Co-Signing Physician Notes I personally examined the patient and verified all parson points of history and exam, discussed case, and agree with decision making with Dr Heath feeling better again today. Appetite better. Watching a scary movieshe notes that despite her upbeat and bubbly personality she really enjoys dark and scary movies. Vitals noted, in general she is awake and alert pleasant no distress. HEENT normocephalic atraumatic mucous membranes moist. Breathing unlabored no accessory muscle use good effort no conversational dyspnea. Skin shows no rashes no pallor or icterus. Heel ulcerdiabetic/venous stasisnow unfortunately with underlying osteomyelitis Pseudomonas Continue meropenem. Greatly appreciate podiatry taking her to the OR. have had extensive discussions on how significant her problem this is. Patient and advocate are aware and understanding that the situation may need to escalate.but thus far doing well. Surgical cultures ne gative which is somewhat reassuring that we are probably well ahead of the infection. Continue meropenemwill need prolonged treatment. Anticipate the bulk of her treatment to be at SNF as she is stable to go once we have approval/bed availability. Upset stomachfortunately nonspecific, no exam consistent with stress ulcer/gastritis/etc.for now Continue escalated mucosal treatment with twice daily Pepcid, twice daily Protonix, Compazine as needed nausea. since she has improved, can probably de-escalate fairly quickly Anemia, hypochromic, acute on chronic in the setting of CKDIV - transfused 1 U PRBC , Hemodynamically stable, no signs of blood loss Hyponatremia - likely displaced arterial volume with LE swelling. Improving w/ fluid restriction, encourage PO intake of meals with low albumin. Consider nutrition consult. Pulmonary edema with acute on chronic HFpEF/acute on chronic diastolic CHF present on admission treated and appears to be resolved; with baseline and CKD 4it is difficult to tell her volume statusat times she requires diuresis for her chronic diastolic CHF, other times she appears to be over diuresed with the diuretics obviously not being useful whenever her swelling is just venous stasis, a very difficult fluid balance, her morbid obesity with BMI 54.2 making it much more difficult to discern her volume status as well as contributing to the venous stasis. continues to appear euvolemic, creatinine improving suggest that a lot of the time we may be misled by her venous stasis and have her slightly over diuresed, at the same time she has had CHF exacerbations, so ongoing supervision and vigilance are necessary. Orthopedic painsappears to have supraspinatus tendinitis and bilateral knee arthritis flaresTylenol [id number], tramadol as needed, Voltaren gel to right shoulder (minimal systemic absorption) DVT prophylaxisheparin subcu Subjective No acute overnight events. Pt evaluated at bedside, notes that pain is well controlled. Notes some ongoing sinus congestion, but improved with Claritin and Flonase, denies SOB, fever/ chills. Review of Systems Review of Systems: as per HPI Physical Exam Physical Exam: General: Alert and oriented. No acute distress Cardiac: Regular rate and rhythm, no murmurs appreciated Respiratory: Lungs clear to auscultation bilaterally, No increased work of breathing Abdominal: Soft, non-tender, non-distended. Bowel sounds present. Extremities: RLE with wound vac. Bilateral LE edema up to the calf. Results & Data Results & Data Vital Signs (Past 12 Hours) Vital Signs Temp Pulse Resp BP Pulse Ox O2 Del Method O2 Flow Rate 08/05/23 07:30 36.4 C L 70 20 154/68 H 97 Nasal Cannula 2 08/04/23 22:46 Nasal Cannula 2 Resident Activity Tracking Resident Involvement: Resident Care Provided Care Provided: Adult Hospital Medicine (1) Ulcer of right heel Non-pressure ulcer stage: with necrosis of bone Qualified Code(s): L97.414 - Non-pressure chronic ulcer of right heel and midfoot with necrosis of bone (2) Diabetic foot ulcer Diabetes mellitus type: type 2 Diabetic foot ulcer location: heel Laterality: right Non-pressure ulcer stage: with fat layer exposed Qualified Code(s): E11.621 - Type 2 diabetes mellitus with foot ulcer; L97.412 - Non- pressure chronic ulcer of right heel and midfoot with fat layer exposed (8) Hypertension Hypertension type: primary hypertension Qualified Code(s): I10 - Essential (primary) hypertension (10) Anemia Anemia type: unspecified type Qualified Code(s): D64.9 - Anemia, unspecified
--- NOTE | 2023-08-05 16:57 | Billing Data ---
Date of Service August 05, 2023 Coding Level of Care Code 56233 SUB INP/OBS CARE
[2023-08-05] MEDS: hydrOXYzine HCl 25 MG TAB PO STA (18:49)
[2023-08-06 07:18] LABS: Hematocrit (blood only) 27.3 % (37.0-47.0); Hemoglobin 8.5 g/dl (12.0-16.0); Mean Corpuscular Hemoglobin 27.4 pg (25.0-34.0); Mean Corpuscular Hgb Conc 31.1 g/dL (32.0-36.0); Mean Corpuscular Volume 88.1 fL (80.0-100.0); Mean Platelet Volume 11.1 fL (9.4-12.4); Platelet Count 381 K/uL (130-400); RDW Coefficient of Variation 14.9 % (11.5-14.5); RDW Standard Deviation 47.9 fL (36.4-46.3); White Blood Count 13.44 K/ul (4.8-10.8)
[2023-08-06 07:29] LABS: BUN Creatinine Ratio 29.1 (10-20); Calcium 8.3 mg/dl (8.6-10.3); Creatinine Clr Calc Pharmacy 36.6 ml/min; Est GFR (African American) 29.5 ml/min; Est GFR (Non-African American) 25.5 ml/min; Magnesium 1.7 mg/dl (1.7-2.4); Potassium 4.2 mmol/L (3.5-5.1)
--- NOTE | 2023-08-06 09:03 | Podiatry Progress Note ---
Date of Service August 06, 2023 Assessment & Plan (1) Acute osteomyelitis of right calcaneus: (2) Ulcer of right heel: (3) Diabetic foot ulcer: (4) Morbid obesity with BMI of 60.0-69.9, adult: Plan Patient examined and evaluated. We discussed continued care for her right foot ulceration. Her wound VAC is intact and doing well. She does have retention sutures in the proximal aspect of the surgical site, though these are only holding tension, likely temporarily. These can stay in for up to 2 weeks along with the wound VAC. If she is discharged prior to then, the sutures should be removed By August 15. No further surgical intervention is planned and she can likely be discharged to inpatient rehab whenever she is stable per other specialties. This wound will still continue to benefit from a wound VAC and potential graft closure or flap closure in the future, healing with secondary intention altogether, or surgical flap/plastics closure. Will continue to monitor this moving forward as well. Admission and Anticipated Discharge Date Admission Date: July 27, 2023 Subjective patient has no new concerns well. She states that she is tolerating the wound VAC well without new heel pain or concerns. She does believe that she will be discharged to inpatient rehab and is curious what her treatment over the next few months will look like. Otherwise, she has done well systemically since surgery. Review of Systems Constitutional: + fever, + chills and + fatigue Eyes: no problem reported Ear, Nose, Mouth, Throat: no problem reported Respiratory: no problem reported Cardiovascular: + edema; no problem reported Gastrointestinal: + nausea and + vomiting; no problem repo rted Genitourinary: no problem reported Musculoskeletal: no problem reported Integumentary: + skin ulcer, + wounds and + erythema Neurologic: + loss of sensation, + numbness and + pa resthesia; no generalized weakness Psychiatric: no problem reported Physical Exam Physical Exam: lower extremity focused exam: DP/PT pulses 2/4 bilaterally. wound VAC is intact to the plantar right heel with no significant bleeding or drainage noted to the canister. Dressing remains clean and dry as well. Constitutional: WD/WN, vitals as above + ill appearing and + obese Eyes: PERRL, conjunctivae normal, anicteric sclerae ENMT: external ear and nose normal, oropharynx normal Neck: trachea midline, no thyromegaly normal visual inspection Respiratory: normal respiratory effort; no respiratory distress Cardiovascular: Rate/Rhythm: regular rate and regular rhythm Chest (Breasts): Chest: normal inspection of chest Gastrointestinal (Abdomen): Inspection/Auscultation: abdomen normal to inspection Percussion/Palpation: + abdomen tender and abdomen soft Musculoskeletal: no cyanosis or clubbing, extremities motor strength 5/5 Head/Neck/Chest: normocephalic and head atraumatic Extremities: extremities normal to inspection Neurologic: awake; no focal motor deficits Psychiatric: A+Ox3, euthymic affect Results & Data Results & Data Vital Signs (Past 12 Hours) Vital Signs Temp Pulse Resp BP Pulse Ox O2 Del Method O2 Flow Rate 08/06/23 08:00 Nasal Cannula 2 08/06/23 07:59 36.6 C 73 16 156/72 H 96 Nasal Cannula 2.5 08/05/23 22:22 Nasal Cannula 2 (2) Ulcer of right heel Non-pressure ulcer stage: with necrosis of bone Qualified Code(s): L97.414 - Non-pressure chronic ulcer of right heel and midfoot with necrosis of bone (3) Diabetic foot ulcer Diabetes mellitus type: type 2 Diabetic foot ulcer location: heel Laterality: right Non-pressure ulcer stage: with fat layer exposed Qualified Code(s): E11.621 - Type 2 diabetes mellitus with foot ulcer; L97.412 - Non- pressure chronic ulcer of right heel and midfoot with fat layer exposed
[2023-08-06] MEDS: ALBUTEROL HFA 8 GM INHALER INH PRN (09:25)
[2023-08-06] MEDS: oxyCODONE HCL IR 5 MG TAB (IMMEDIATE RELEASE) PO PRN (10:44)
--- NOTE | 2023-08-06 13:18 | Hospitalist Progress Note ---
Date of Service August 06, 2023 Assessment & Plan (1) Ulcer of right heel: (2) Diabetic foot ulcer: (3) CKD (chronic kidney disease) stage 4, GFR 15-29 ml/min: (4) Ambulatory dysfunction: (5) (HFpEF) heart failure with preserved ejection fraction: (6) SOB (shortness of breath): (7) Hypercholesteremia: (8) Hypertension: (9) Anxiety: (10) Anemia: (11) Hyponatremia: Plan Awaiting SNF placement Osteomyelitis/ Right heel diabetic foot ulcer: MRI ankle consistent with osteomyelitis Wound culture taken 07/27, + pseudomonas, intermediate sensitivity to Cefepime H/o Pseudomonas on 11/21/2022 and Staph aureus on 01/04/2023 Blood cultures negative at 48 hours ID consulted, appreciate recs: Continue Meropenem, will need 6 weeks of IV abx + weekly labs following discharge (CBC, CMP, ESR/CRP) Baseline ESR 101, CRP 3.94 Podiatry consulted, s/p partial calcanectomy 08/01, intraoperative would culture 08/01 preliminarily negative Anemia: Low baseline hemoglobin likely in the setting of CKD, AM hemoglobin 8.9 Continue iron supplementation Recheck AM Hgb Transfusion threshold remains for Hgb<7 or symptomatic anemia Ambulatory Dysfunction: Patient lives alone, has difficulty getting up from current bed - will coordinate with case management to obtain hospital bed PT/OT recommending placement Patient essentially stable for discharge at this point, case management following for dispo needs Pulmonary edema/HFpEF/hypertension: Currently without shortness of breath Outpatient prescriptions reviewed with pharmacy, last diuretic filled was Bumex 2mg daily -currently holding Bumex, consider restarting based on assessment of volume status Follow renal function panel and magnesium level CKD stage IV: Creatinine 2.07 on admission, with base range 2.29-2.48, AM Cr 2.04 QAM lab monitoring Diabetes mellitus: Continue Lantus to 5U BID Placed on Accu-Cheks with NovoLog SSI Med/Tele VTE ppx: Heparin Diet: REHANA ALEJANDRE Full Code Admission and Anticipated Discharge Date Admission Date: July 27, 2023 Supervising Physician Co-Signing Physician Notes Attending Physician Supervision Note: I independently interviewed and examined the patient and verified the parson history and physical, reviewed labs and image studies and agree with findings and care plan noted above. Heel ulcer with osteomyelitis - s/p calcanectomy 08/01. h/o Staph aureus and Pseudomonas in culture -Wound VAC in place -Continue meropenem -will need for 6 weeks Anemia - s/p 1 units prbc. Incentive spirometry since mostly in bed due to heel infection DVT prophylaxisheparin subcu Subjective Patient seen and evaluated at bedside this morning. No acute events overnight. Awaiting placement. No CP, SOB. Review of Systems Review of Systems: reviewed, per HPI Physical Exam Physical Exam: Constitutional: well-appearing, no acute distress HEENT: NCAT, no conjunctival injection CV: extremities well-perfused, no LE edema Resp: no increased work of breathing MSK:L heel wound vac in place, functioning appropriately Skin: warm, dry, no rash appreciated Neuro: alert, oriented, no focal neurologic deficit appreciated Results & Data Results & Data Vital Signs (Past 12 Hours) Vital Signs Temp Pulse Resp BP Pulse Ox O2 Del Method O2 Flow Rate 08/06/23 08:00 Nasal Cannula 2 08/06/23 07:59 36.6 C 73 16 156/72 H 96 Nasal Cannula 2.5 Resident Activity Tracking Resident Involvement: Resident Care Provided Care Provided: Adult Hospital Medicine (1) Ulcer of right heel Non-pressure ulcer stage: with necrosis of bone Qualified Code(s): L97.414 - Non-pressure chronic ulcer of right heel and midfoot with necrosis of bone (2) Diabetic foot ulcer Diabetes mellitus type: type 2 Diabetic foot ulcer location: heel Laterality: right Non-pressure ulcer stage: with fat layer exposed Qualified Code(s): E11.621 - Type 2 diabetes mellitus with foot ulcer; L97.412 - Non- pressure chronic ulcer of right heel and midfoot with fat layer exposed (8) Hypertension Hypertension type: primary hypertension Qualified Code(s): I10 - Essential (primary) hypertension (10) Anemia Anemia type: unspecified type Qualified Code(s): D64.9 - Anemia, unspecified
[2023-08-07 06:48] LABS: Basophils # (auto) 0.05 K/uL (0.00-0.20); Basophils % (auto) 0.5 %; Eosinophils # (auto) 0.55 K/uL (0.00-0.50); Eosinophils % (auto) 5.2 %; Hematocrit (blood only) 27.5 % (37.0-47.0); Hemoglobin 8.6 g/dl (12.0-16.0); Immature Granulocytes % (auto) 0.9 %; Lymphocytes # (auto) 2.94 K/uL (1.20-3.40); Lymphocytes % (auto) 27.7 %; Mean Corpuscular Hemoglobin 27.7 pg (25.0-34.0); Mean Corpuscular Hgb Conc 31.3 g/dL (32.0-36.0); Mean Corpuscular Volume 88.4 fL (80.0-100.0); Mean Platelet Volume 10.6 fL (9.4-12.4); Monocytes # (auto) 0.77 K/uL (0.11-0.59); Monocytes % (auto) 7.3 %; Neutrophils # (auto) 6.21 K/uL (1.40-6.50); Neutrophils % (auto) 58.4 %; Platelet Count 433 K/uL (130-400); RDW Coefficient of Variation 15.1 % (11.5-14.5); RDW Standard Deviation 48.4 fL (36.4-46.3); Red Blood Count 3.11 M/uL (4.20-5.40); White Blood Count 10.62 K/ul (4.8-10.8)
[2023-08-07 07:13] LABS: Albumin Globulin Ratio 0.5 (0.9-2); Albumin Level 2.4 gm/dl (3.4-5.0); BUN Creatinine Ratio 30.4 (10-20); Bilirubin,Total 0.2 mg/dl (0.2-1.0); Calcium 8.3 mg/dl (8.6-10.3); Creatinine Clr Calc Pharmacy 40.4 ml/min; Est GFR (African American) 33.2 ml/min; Est GFR (Non-African American) 28.7 ml/min; Globulin 4.5 gm/dl (2.5-4.0); Magnesium 1.7 mg/dl (1.7-2.4); Phosphorus 3.9 mg/dl (2.5-4.9); Potassium 4.5 mmol/L (3.5-5.1); Total Protein 6.9 gm/dl (6.0-8.3)
--- NOTE | 2023-08-07 07:49 | Infectious Disease Progress Nt ---
Date of Service August 07, 2023 Assessment & Plan (1) Ulcer of right heel: (2) Acute osteomyelitis of right calcaneus: (3) CKD (chronic kidney disease) stage 4, GFR 15-29 ml/min: Plan 63yo F with h/o diabetes, chronic right heel ulcer, CKD IV, morbid obesity with ambulatory dysfunction, HFpEF, fibromyalgia, HTN, HLD, recent admission 05/04- 05/23 with a mechanical fall f/w UTI s/p keflex x 7d who presented on 07/26, after being home 3 days from rehab, with yellow right heel wound drainage, progressive SOB, and low back pain with difficulty getting out of bed. In the ED, she was noted to have some hypoxia to 85% and was placed on NC. Also noted to have purulent drainage form her right heel. Otherwise she has been afebrile, with stable BPs. Initial labs with WBC 14.17>>8.86, Cr 2.07>>2.51 (at baseline). LFT wnl. Troponin elevated. UA negative. CT L spine negative. CXR with pulmonary edema. Right foot XR with diffuse soft tissue swelling. She was started on cefepime for her heel ulcer and diuresis for pulmonary edema. R foot MRI done which showed abnormal marrow signal and small focal area of cortical destruction at plantar surface of posterior calcaneus c/w OM. WCx with PsA. ID consulted 07/30 for assistance. Given resistance pattern of Pseudomonas from WCX, cefepime changed to meropenem on 07/30. ESR 101, CRP 3.94. S/p OR 08/01 and underwent right partial calcanectomy. OR cx with skin genevieve. Plan will be for 6 weeks of antibiotics starting from day of surgery. Since she has had Pseudomonas in cx, will treat for this organism. Note her QTc is 499 with bifascicular block, which makes using fluoroquinolones difficult. Therefore, she will need IV abx for the duration of therapy with meropenem based on susceptibility data. This cannot be changed to ertapenem on discharge since it doesnt cover Pseudomonas. Micro: 07/27 WCX: P aeruginosa (I-cefepime, S-cipro, nicolle) 08/01 OR cx: skin genevieve # Right chronic diabetic heel ulcer with underlying calcaneal OM s/p partial calcanectomy 08/01 # WCx with PsA # CKD IV # Allergy to amoxicillin (hives), sulfa (rash), clarithromycin (?true allergy) - continue meropenem 1g IV q8h (renally adjust as needed) - she will need 6 weeks of meropenem starting from 08/01, eot 09/12 - monitor weekly CBC w diff, CMP, and ESR/CRP while on IV abx - Follow up with local ID provider or PCP ID will discontinue active follow up at this time. Please do not hesitate to reconsult the Infectious Diseases service as needed. Karlee Garcia MD [facility], Division of Infectious Diseases IDConnect: [phone] Admission and Anticipated Discharge Date Admission Date: July 27, 2023 Subjective This patient recommendation is based on a telemedicine consult request which was completed asynchronously through chart review and information provided by the primary physician. The patient was not seen or examined today. The evaluation is consultative in nature and all patient care and treatment decisions can either be accepted or rejected by the patient's primary hospital-based treating physician using their own independent medical judgment for their patient. Time Spent Reviewing Chart: 31+ minutes Results & Data Vital Signs (Past 12 Hours) Vital Signs Temp Pulse Resp BP Pulse Ox O2 Del Method O2 Flow Rate 08/07/23 07:29 36.7 C 74 18 143/74 H 95 Nasal Cannula 3 08/06/23 19:55 Nasal Cannula 2 (1) Ulcer of right heel Non-pressure ulcer stage: with necrosis of bone Qualified Code(s): L97.414 - Non-pressure chronic ulcer of right heel and midfoot with necrosis of bone
--- NOTE | 2023-08-07 10:32 | Hospitalist Progress Note ---
Date of Service August 07, 2023 Assessment & Plan (1) Ulcer of right heel: (2) Diabetic foot ulcer: (3) CKD (chronic kidney disease) stage 4, GFR 15-29 ml/min: (4) Ambulatory dysfunction: (5) (HFpEF) heart failure with preserved ejection fraction: (6) SOB (shortness of breath): (7) Hypercholesteremia: (8) Hypertension: (9) Anxiety: (10) Anemia: (11) Hyponatremia: Plan Awaiting SNF placement Osteomyelitis/ Right heel diabetic foot ulcer: MRI ankle consistent with osteomyelitis Wound culture taken 07/27, + pseudomonas, intermediate sensitivity to Cefepime H/o Pseudomonas on 11/21/2022 and Staph aureus on 01/04/2023 Blood cultures negative at 48 hours ID consulted, appreciate recs: Continue Meropenem, will need 6 weeks of IV abx + weekly labs following discharge (CBC, CMP, ESR/CRP) Baseline ESR 101, CRP 3.94 Podiatry consulted, s/p partial calcanectomy 08/01, intraoperative would culture 08/01 preliminarily negative Anemia: Low baseline hemoglobin likely in the setting of CKD Continue iron supplementation Transfusion threshold remains for Hgb<7 or symptomatic anemia Ambulatory Dysfunction: Patient lives alone, has difficulty getting up from current bed PT/OT recommending placement Patient essentially stable for discharge at this point, case management following for dispo needs Pulmonary edema/HFpEF/hypertension: Currently without shortness of breath Bumex 2mg daily Follow renal function panel and magnesium level CKD stage IV: Follow Cr QAM lab monitoring Diabetes mellitus: Continue Lantus to 5U BID Placed on Accu-Cheks with NovoLog SSI Med/Tele VTE ppx: Heparin Diet: REHANA ALEJANDRE Full Code Admission and Anticipated Discharge Date Admission Date: July 27, 2023 Supervising Physician Co-Signing Physician Notes Attending Physician Supervision Note: I independently interviewed and examined the patient and verified the parson history and physical, reviewed labs and image studies and agree with findings and care plan noted above. Heel ulcer with osteomyelitis - s/p calcanectomy 08/01. h/o Staph aureus and Pseudomonas in culture -Wound VAC in place -Continue meropenem -will need for 6 weeks -Should not be switched to ertapenem since that will not have pseudomonal coverage. -quinolone not chosen as choice d/t QTc of 499 and bifascicular block. Anemia - s/p 1 units prbc. Incentive spirometry since mostly in bed due to heel infection Chronic HFpEF - resume home dose of bumex - 08/06. DVT prophylaxisheparin subcu Subjective Patient seen and evaluated at bedside this morning. No acute events overnight. Feeling well this AM. Was able to work with PT yesterday, able to stand on L foot, able to move to edge of bed. Awaiting placement. No CP, SOB. Review of Systems Review of Systems: reviewed, per HPI Physical Exam Physical Exam: Constitutional: well-appearing, no acute distress HEENT: NCAT, no conjunctival injection CV: extremities well-perfused, no LE edema Resp: no increased work of breathing MSK:L heel wound vac in place, functioning appropriately Skin: warm, dry, no rash appreciated : jordan in place Neuro: alert, oriented, no focal neurologic deficit appreciated Results & Data Results & Data Vital Signs (Past 12 Hours) Vital Signs Temp Pulse Resp BP Pulse Ox O2 Del Method O2 Flow Rate 08/07/23 07:29 36.7 C 74 18 143/74 H 95 Nasal Cannula 3 Resident Activity Tracking Resident Involvement: Resident Care Provided Care Provided: Adult Hospital Medicine (1) Ulcer of right heel Non-pressure ulcer stage: with necrosis of bone Qualified Code(s): L97.414 - Non-pressure chronic ulcer of right heel and midfoot with necrosis of bone (2) Diabetic foot ulcer Diabetes mellitus type: type 2 Diabetic foot ulcer location: heel Laterality: right Non-pressure ulcer stage: with fat layer exposed Qualified Code(s): E11.621 - Type 2 diabetes mellitus with foot ulcer; L97.412 - Non- pressure chronic ulcer of right heel and midfoot with fat layer exposed (8) Hypertension Hypertension type: primary hypertension Qualified Code(s): I10 - Essential (primary) hypertension (10) Anemia Anemia type: unspecified type Qualified Code(s): D64.9 - Anemia, unspecified
[2023-08-07] MEDS: traMADol HCL 50 MG TABLET PO PRN (20:27)
[2023-08-08 07:01] LABS: Basophils # (auto) 0.05 K/uL (0.00-0.20); Basophils % (auto) 0.5 %; Eosinophils # (auto) 0.56 K/uL (0.00-0.50); Eosinophils % (auto) 5.5 %; Hemoglobin 8.2 g/dl (12.0-16.0); Immature Granulocytes # (auto) 0.08 K/uL (0.01-0.20); Immature Granulocytes % (auto) 0.8 %; Lymphocytes # (auto) 2.83 K/uL (1.20-3.40); Lymphocytes % (auto) 27.7 %; Mean Corpuscular Hgb Conc 31.5 g/dL (32.0-36.0); Mean Corpuscular Volume 88.7 fL (80.0-100.0); Mean Platelet Volume 10.5 fL (9.4-12.4); Monocytes % (auto) 7.8 %; Neutrophils # (auto) 5.89 K/uL (1.40-6.50); Neutrophils % (auto) 57.7 %; Platelet Count 391 K/uL (130-400); RDW Coefficient of Variation 15.2 % (11.5-14.5); RDW Standard Deviation 49.3 fL (36.4-46.3); Red Blood Count 2.93 M/uL (4.20-5.40); White Blood Count 10.21 K/ul (4.8-10.8)
[2023-08-08 07:21] LABS: Albumin Globulin Ratio 0.5 (0.9-2); Albumin Level 2.2 gm/dl (3.4-5.0); BUN Creatinine Ratio 30.6 (10-20); Bilirubin,Total 0.2 mg/dl (0.2-1.0); Creatinine Clr Calc Pharmacy 37.9 ml/min; Est GFR (African American) 30.8 ml/min; Est GFR (Non-African American) 26.6 ml/min; Globulin 4.2 gm/dl (2.5-4.0); Magnesium 1.7 mg/dl (1.7-2.4); Phosphorus 4.2 mg/dl (2.5-4.9); Potassium 4.6 mmol/L (3.5-5.1); Total Protein 6.4 gm/dl (6.0-8.3)
--- NOTE | 2023-08-08 11:16 | Hospitalist Progress Note ---
Date of Service August 08, 2023 Assessment & Plan (1) Ulcer of right heel: (2) Diabetic foot ulcer: (3) CKD (chronic kidney disease) stage 4, GFR 15-29 ml/min: (4) Ambulatory dysfunction: (5) (HFpEF) heart failure with preserved ejection fraction: (6) SOB (shortness of breath): (7) Hypercholesteremia: (8) Hypertension: (9) Anxiety: (10) Anemia: (11) Hyponatremia: Plan Awaiting SNF placement - accepted at [facility], pursuing [facility] placement Osteomyelitis/ Right heel diabetic foot ulcer: MRI ankle consistent with osteomyelitis Wound culture taken 07/27, + pseudomonas, intermediate sensitivity to Cefepime H/o Pseudomonas on 11/21/2022 and Staph aureus on 01/04/2023 Blood cultures negative at 48 hours ID consulted, appreciate recs: Continue Meropenem, will need 6 weeks of IV abx + weekly labs following discharge (CBC, CMP, ESR/CRP) Baseline ESR 101, CRP 3.94 Podiatry consulted, s/p partial calcanectomy 08/01, intraoperative would culture 08/01 preliminarily negative Anemia: Low baseline hemoglobin likely in the setting of CKD Continue iron supplementation Transfusion threshold remains for Hgb<7 or symptomatic anemia Ambulatory Dysfunction: Patient lives alone, has difficulty getting up from current bed PT/OT recommending placement Stable for discharge at this point, case management following for dispo needs Pulmonary edema/HFpEF/hypertension: Currently without shortness of breath Bumex 2mg daily Follow renal function panel and magnesium level CKD stage IV: Follow Cr QAM lab monitoring Diabetes mellitus: Continue Lantus to 5U BID Placed on Accu-Cheks with NovoLog SSI Med/Tele VTE ppx: Heparin Diet: REHANA ALEJANDRE Full Code Admission and Anticipated Discharge Date Admission Date: July 27, 2023 Supervising Physician Co-Signing Physician Notes Attending Physician Supervision Note: I independently interviewed and examined the patient and verified the parson history and physical, reviewed labs and image studies and agree with findings and care plan noted above. Heel ulcer with osteomyelitis - s/p calcanectomy 08/01. h/o Staph aureus and Pseudomonas in culture -Wound VAC in place -Continue meropenem -will need for 6 weeks -Should not be switched to ertapenem since that will not have pseudomonal coverage. -quinolone not chosen as choice d/t QTc of 499 and bifascicular block. Anemia - s/p 1 units prbc. Incentive spirometry since mostly in bed due to heel infection Chronic HFpEF - resumed home dose of bumex - 08/06. tolerating well. continue to monitor renal function. DVT prophylaxisheparin subcu Subjective Patient seen and evaluated at bedside this morning. No acute events overnight. Feeling well this AM. Had trouble working with OT yesterday, hit her heel on side of bed; remains motivated to work with PT/OT. Complaining of R shoulder pain this morning 2/2 injury sustained during prior admission to [facility]. 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 Systemic antiinflammatories limited by CKD status. Review of Systems Review of Systems: reviewed, per HPI Physical Exam Physical Exam: Constitutional: well-appearing, no acute distress HEENT: NCAT, no conjunctival injection CV: extremities well-perfused, no LE edema Resp: no increased work of breathing MSK:L heel wound vac in place, functioning appropriately Skin: warm, dry, no rash appreciated : jordan in place Neuro: alert, oriented, no focal neurologic deficit appreciated Results & Data Results & Data Vital Signs (Past 12 Hours) Vital Signs Temp Pulse Resp BP Pulse Ox O2 Del Method O2 Flow Rate 08/08/23 07:22 36.5 C 63 16 158/69 H 99 Nasal Cannula 2 Resident Activity Tracking Resident Involvement: Resident Care Provided Care Provided: Adult Hospital Medicine (1) Ulcer of right heel Non-pressure ulcer stage: with necrosis of bone Qualified Code(s): L97.414 - Non-pressure chronic ulcer of right heel and midfoot with necrosis of bone (2) Diabetic foot ulcer Diabetes mellitus type: type 2 Diabetic foot ulcer location: heel Laterality: right Non-pressure ulcer stage: with fat layer exposed Qualified Code(s): E11.621 - Type 2 diabetes mellitus with foot ulcer; L97.412 - Non- pressure chronic ulcer of right heel and midfoot with fat layer exposed (8) Hypertension Hypertension type: primary hypertension Qualified Code(s): I10 - Essential (primary) hypertension (10) Anemia Anemia type: unspecified type Qualified Code(s): D64.9 - Anemia, unspecified
[2023-08-08] MEDS: PROCHLORPERAZINE 10 MG in SYRINGE 8 ML IV PRN (18:35)
[2023-08-09 07:55] LABS: Basophils # (auto) 0.05 K/uL (0.00-0.20); Basophils % (auto) 0.5 %; Eosinophils # (auto) 0.59 K/uL (0.00-0.50); Eosinophils % (auto) 6.3 %; Hematocrit (blood only) 27.9 % (37.0-47.0); Hemoglobin 8.7 g/dl (12.0-16.0); Immature Granulocytes # (auto) 0.09 K/uL (0.01-0.20); Lymphocytes # (auto) 2.73 K/uL (1.20-3.40); Lymphocytes % (auto) 29.4 %; Mean Corpuscular Hemoglobin 27.5 pg (25.0-34.0); Mean Corpuscular Hgb Conc 31.2 g/dL (32.0-36.0); Mean Corpuscular Volume 88.3 fL (80.0-100.0); Mean Platelet Volume 10.4 fL (9.4-12.4); Monocytes # (auto) 0.74 K/uL (0.11-0.59); Neutrophils % (auto) 54.8 %; Platelet Count 406 K/uL (130-400); RDW Standard Deviation 48.5 fL (36.4-46.3); Red Blood Count 3.16 M/uL (4.20-5.40)
[2023-08-09 08:07] LABS: Albumin Globulin Ratio 0.5 (0.9-2); Albumin Level 2.3 gm/dl (3.4-5.0); BUN Creatinine Ratio 30.9 (10-20); Bilirubin,Total 0.2 mg/dl (0.2-1.0); Calcium 8.3 mg/dl (8.6-10.3); Creatinine Clr Calc Pharmacy 38.6 ml/min; Est GFR (African American) 31.2 ml/min; Est GFR (Non-African American) 26.9 ml/min; Globulin 4.5 gm/dl (2.5-4.0); Magnesium 1.7 mg/dl (1.7-2.4); Phosphorus 4.6 mg/dl (2.5-4.9); Potassium 4.6 mmol/L (3.5-5.1); Total Protein 6.8 gm/dl (6.0-8.3)
--- NOTE | 2023-08-09 14:04 | Hospitalist Progress Note ---
Date of Service August 09, 2023 Assessment & Plan (1) Ulcer of right heel: (2) Diabetic foot ulcer: (3) CKD (chronic kidney disease) stage 4, GFR 15-29 ml/min: (4) Ambulatory dysfunction: (5) (HFpEF) heart failure with preserved ejection fraction: (6) SOB (shortness of breath): (7) Hypercholesteremia: (8) Hypertension: (9) Anxiety: (10) Anemia: (11) Hyponatremia: (12) Shoulder pain, right: Plan Awaiting SNF placement - accepted at [facility], pursuing [facility] placement Osteomyelitis/ Right heel diabetic foot ulcer: MRI ankle consistent with osteomyelitis Wound culture taken 07/27, + pseudomonas, intermediate sensitivity to Cefepime H/o Pseudomonas on 11/21/2022 and Staph aureus on 01/04/2023 Blood cultures negative at 48 hours ID consulted, appreciate recs: Continue Meropenem, will need 6 weeks of IV abx + weekly labs following víctor valladares (CBC, CMP, ESR/CRP) Baseline ESR 101, CRP 3.94 Podiatry consulted, s/p partial calcanectomy 08/01, intraoperative would culture 08/01 preliminarily negative Retention sutures in place on proximal aspect of surgical site; must be removed August 15 Shoulder pain, right present since prior admission to [facility] during which she had a fall progressively worsening ortho consult for further evaluation Anemia: Low baseline hemoglobin likely in the setting of CKD Continue iron supplementation Transfusion threshold remains for Hgb<7 or symptomatic anemia Ambulatory Dysfunction: Patient lives alone, has difficulty getting up from current bed PT/OT recommending placement Stable for discharge at this point, case management following for dispo needs Pulmonary edema/HFpEF/hypertension: Currently without shortness of breath Bumex 2mg daily Follow renal function panel and magnesium level CKD stage IV: Follow Cr QAM lab monitoring Diabetes mellitus: Continue Lantus to 5U BID Placed on Accu-Cheks with NovoLog SSI Med/Tele VTE ppx: Heparin Diet: REHANA ALEJANDRE Full Code Admission and Anticipated Discharge Date Admission Date: July 27, 2023 Supervising Physician Co-Signing Physician Notes Attending Physician Supervision Note: I independently interviewed and examined the patient and verified the parson history and physical, reviewed labs and image studies and agree with findings and care plan noted above. Heel ulcer with osteomyelitis - s/p calcanectomy 08/01. h/o Staph aureus and Pseudomonas in culture -Wound VAC in place - continue -Per podiatry - -Retention sutures in the proximal aspect of the surgical site to be removed by august 15. -potential graft closure or flap closure in the future, healing with secondary intention, or surgical flap/plastics closure. -Continue meropenem -will need for 6 weeks -Should not be switched to ertapenem since that will not have pseudomonal coverage. -quinolone not chosen as choice d/t QTc of 499 and bifascicular block. Right shoulder pain - since fall. Xrays done then negative. -ortho for evaluation Anemia - s/p 1 units prbc. Incentive spirometry since mostly in bed due to heel infection Chronic HFpEF - resumed home dose of bumex - 08/06. tolerating well. continue to monitor renal function. DVT prophylaxisheparin subcu Subjective Patient seen and evaluated at bedside this morning. No acute events overnight. Still complaining of shoulder pain, explained that this has been worked up in the past and no further imaging required from our standpoint. Requesting ortho consult. Review of Systems Review of Systems: reviewed, per HPI Physical Exam Physical Exam: Constitutional: well-appearing, no acute distress HEENT: NCAT, no conjunctival injection CV: extremities well-perfused, no LE edema Resp: no increased work of breathing MSK:L heel wound vac in place, functioning appropriately Skin: warm, dry, no rash appreciated : jordan in place Neuro: alert, oriented, no focal neurologic deficit appreciated Results & Data Results & Data Vital Signs (Past 12 Hours) Vital Signs Temp Pulse Resp BP Pulse Ox O2 Del Method 08/09/23 07:45 36.6 C 65 20 145/77 H 98 Room Air Resident Activity Tracking Resident Involvement: Resident Care Provided Care Provided: Adult [facility] (1) Ulcer of right heel Non-pressure ulcer stage: with necrosis of bone Qualified Code(s): L97.414 - Non-pressure chronic ulcer of right heel and midfoot with necrosis of bone (2) Diabetic foot ulcer Diabetes mellitus type: type 2 Diabetic foot ulcer location: heel Laterality: right Non-pressure ulcer stage: with fat layer exposed Qualified Code(s): E11.621 - Type 2 diabetes mellitus with foot ulcer; L97.412 - Non- pressure chronic ulcer of right heel and midfoot with fat layer exposed (8) Hypertension Hypertension type: primary hypertension Qualified Code(s): I10 - Essential (primary) hypertension (10) Anemia Anemia type: unspecified type Qualified Code(s): D64.9 - Anemia, unspecified
--- NOTE | 2023-08-09 17:51 | XRay Report ---
XR shoulder RT min 2V routine CLINICAL HISTORY: shoulder pain TECHNIQUE: 3 views of the right shoulder were obtained. Comparison: None available at the time of this dictation. FINDINGS: There is no evidence of an acute fracture. Degenerative changes are seen in the glenohumeral joint. T he overlying soft tissues are unremarkable. The visualized portions of the lungs are clear. IMPRESSION: Degenerative changes without evidence of acute abnormality. ACT 112: Negative or not required by law. Electronically signed by: Juan Ramon Bejarano M.D. 08/09/2023 5:50 PM
--- NOTE | 2023-08-09 21:48 | Orthopedic Consultation ---
Date of Consultation August 09, 2023 Assessment & Plan (1) Shoulder pain, right: 63-year-old female with right shoulder calcific tendinitis/rotator cuff tendinitis Weight-bear as tolerated right upper extremity PT/OT Pain control Medical management No acute orthopedic intervention at this time. Would recommend physical therapy with range of motion and strengthening. Patient may follow-up as an outpatient upon discharge. Orthopedics will sign off at this time. History of Present Illness Reason for Consultation: Right shoulder pain Attending Physician: Julita Alvarado MD History of Present Illness 63-year-old female complaining of right shoulder pain after sustaining a fall in bathroom. Denies any numbness or paresthesias. Does report prior history of calcific tendinitis. Recalls that she may have had an injection in the past but it has been quite sometime. Notes pain is worse with overhead activity. Orthopedics was consulted for evaluation. Allergies Allergy/AdvReac Type Severity Reaction Status Date / Time amoxicillin Allergy Intermediate hives Verified 07/27/23 20:52 dextromethorphan Allergy Intermediate Hives Verified 07/27/23 20:52 [From NyQuil] doxylamine [From NyQuil] Allergy Intermediate Hives Verified 07/27/23 20:52 latex Allergy Intermediate RASH Verified 07/27/23 20:52 Sulfa (Sulfonamide Allergy Intermediate RASH Verified 07/27/23 20:52 Antibiotics) clarithromycin AdvReac Intermediate HEART RACES Verified 07/27/23 20:52 Arnold's multigrain bread Allergy Intermediate Hives Uncoded 07/27/23 20:52 Home Medications Medication Instructions Recorded Confirmed Type amitriptyline 50 mg tablet 100 mg PO HS 12/06/17 07/27/23 History fluticasone propionate 50 1 spray intranasal QAM 03/10/19 07/27/23 History mcg/actuation nasal spray,suspension levothyroxine 175 mcg tablet 175 mcg PO QAM 03/10/19 07/27/23 History (Synthroid) atorvastatin 80 mg tablet 80 mg PO HS 02/19/20 07/27/23 History loratadine 10 mg tablet 10 mg PO DAILY PRN Allergy Symptoms 01/19/21 07/27/23 History pen needle, diabetic 32 gauge x 06/20/21 05/03/23 History " (BD Ultra-Fine Siria Pen Needle) blood sugar diagnostic (FreeStyle 06/29/21 05/03/23 History Precision Perico Strips) flash glucose scanning reader 06/29/21 05/03/23 History (FreeStyle Davy 14 Day [place]) flash glucose sensor (FreeStyle 06/29/21 05/03/23 History Davy 14 Day Sensor kit) lancets 30 gauge (OneTouch Delica 06/29/21 05/03/23 History Lancets) cholecalciferol (vitamin D3) 50 50 mcg PO QAM 02/09/22 07/27/23 History mcg (2,000 unit) capsule cyanocobalamin (vitamin B-12) 1,000 mcg PO DAILY #30 tabs 01/16/23 07/27/23 Rx 1,000 mcg tablet ferrous sulfate 325 mg (65 mg 325 mg PO DAILY #30 tabs 01/16/23 07/27/23 Rx iron) tablet folic acid 1 mg tablet 1,000 mcg PO DAILY #30 tabs 01/16/23 07/27/23 Rx albuterol sulfate 90 mcg/actuation 2 puff inhalation QID PRN wheezing 03/19/23 07/27/23 History aerosol inhaler omeprazole 20 mg capsule,delayed 20 mg PO DAILY 03/19/23 07/27/23 History release acetaminophen 325 mg tablet 650 mg (2 x 325 mg) PO Q4H PRN 04/12/23 07/27/23 Rx pain #30 tabs amlodipine 10 mg tablet 10 mg PO DAILY #30 tabs 04/12/23 07/27/23 Rx insulin aspart U-100 100 unit/mL 20 unit subcut TIDWMEAL 04/13/23 07/27/23 History subcutaneous solution (Novolog U-100 Insulin aspart) bumetanide 1 mg tablet 0 mg PO QAM 07/27/23 07/27/23 History insulin detemir U-100 100 unit/mL 20 unit subcut BID 07/27/23 07/27/23 History (3 mL) subcutaneous pen (Levemir FlexPen) simvastatin 40 mg tablet 40 mg PO HS 07/27/23 07/27/23 History Patient History Medical History Fall Pseudomonas infection History of anesthesia reaction woke up during shoulder arthroscopy RBBB Hypoxia Hyperglycemia due to type 2 diabetes mellitus Pneumonia due to COVID-19 virus COVID-19 hx of in 2019--per pt was hospitalized for COVID--states no symptoms currently Bifascicular block Foot drop LEFT Chronic back pain Hx of irritable bowel syndrome Cataract Bilateral Umbilical hernia Hiatal hernia PTSD (post-traumatic stress disorder) History of diverticulitis Tear of medial meniscus of right knee, current Diabetes mellitus with hyperglycemia, with long-term current use of insulin Neck pain Narrowing of C6-C7 with bone spurs. CAUSES NUMBNESS IN LEFT ARM Anxiety Hyperlipidemia Hypertension History of migraine Hyperosmolar hyponatremia Fibromyalgia Surgical History History of repair of right rotator cuff History of repair of left rotator cuff History of repair of ACL L S/P rotator cuff repair History of arthroscopy of right shoulder History of dilatation and curettage History of repair of ACL R History of esophagogastroduodenoscopy (EGD) History of colonoscopy History of D&C Family History Grandfather Diabetes Mother Myocardial infarction Heart disease Tobacco abuse Hx of CABG Family/Other Family history of diabetes mellitus Brother Family history of diabetes mellitus Father Aortic aneurysm Grandmother (Paternal) Cerebral aneurysm Stroke Other Family history of colon cancer in mother Social History Smoking Status: Never smoker Second Hand Exposure: No; Do You Dip or Chew Tobacco: No; Tobacco Cessation Education Requested by Patient: No Hx Alcohol Use: No Hx Substance Use: No Preferred Language: [place] Communication Ability: Effective Visual Impairment: No Limitations Automobile Glass Technician Required: No Beliefs That Will Affect Care: None marital status: Current Living Situation: Alone Other Information That Helps Us Care for You: No Feels Safe at Home: Yes Safety Concerns: Feels Safe At This Time Assistive Devices: Oxygen - Continuous and Walker Physical Exam Constitutional: NAD, resting in bed Musculoskeletal: Right upper extremity: Sensation intact to light touch axillary/median/radial/ulnar nerve distributions. 90 dysfunction, he degrees abduction, 50 degrees external rotation, internal rotation to PSIS. Palpable radial pulse Results & Data Vital Signs (Past 12 Hours) Vital Signs Temp Pulse Pulse Resp BP Pulse Ox O2 Del Method 08/09/23 20:19 36.6 C 69 18 166/85 H 98 Nasal Cannula 08/09/23 19:32 Nasal Cannula 08/09/23 16:12 Room Air 08/09/23 15:39 36.6 C 68 20 169/71 H 95 Nasal Cannula O2 Flow Rate 08/09/23 20:19 2 08/09/23 19:32 2 08/09/23 16:12 08/09/23 15:39 2 Diagnostic Findings Right shoulder radiographs demonstrate no evidence of fracture dislocation. There is mild degenerative changes present at the glenohumeral joint. Also to be some calcification noted in the subacromial space which could be consistent with calcific tendinitis
--- NOTE | 2023-08-10 17:30 | Hospitalist Progress Note ---
Date of Service August 10, 2023 Assessment & Plan (1) Ulcer of right heel: (2) Diabetic foot ulcer: (3) CKD (chronic kidney disease) stage 4, GFR 15-29 ml/min: (4) Ambulatory dysfunction: (5) (HFpEF) heart failure with preserved ejection fraction: (6) SOB (shortness of breath): (7) Hypercholesteremia: (8) Hypertension: (9) Anxiety: (10) Anemia: (11) Hyponatremia: (12) Shoulder pain, right: Plan Awaiting SNF placement - accepted at [facility], pursuing [facility] placement Osteomyelitis/ Right heel diabetic foot ulcer: MRI ankle consistent with osteomyelitis Wound culture taken 07/27, + pseudomonas, intermediate sensitivity to Cefepime H/o Pseudomonas on 11/21/2022 and Staph aureus on 01/04/2023 Blood cultures negative at 48 hours ID consulted, appreciate recs: Continue Meropenem, will need 6 weeks of IV abx + weekly labs following víctor valladares (CBC, CMP, ESR/CRP) Baseline ESR 101, CRP 3.94 Podiatry consulted, s/p partial calcanectomy 08/01, intraoperative would culture 08/01 preliminarily negative Retention sutures in place on proximal aspect of surgical site; must be removed August 15 Shoulder pain, right present since prior admission to [facility] during which she had a fall ortho consult - nothing to do, supportive care and continue to work with PT Anemia: Low baseline hemoglobin likely in the setting of CKD Continue iron supplementation Transfusion threshold remains for Hgb<7 or symptomatic anemia Ambulatory Dysfunction: Patient lives alone, has difficulty getting up from current bed PT/OT recommending placement Stable for discharge at this point, case management following for dispo needs Pulmonary edema/HFpEF/hypertension: Currently without shortness of breath Bumex 2mg daily Follow renal function panel and magnesium level CKD stage IV: Follow Cr QAM lab monitoring Diabetes mellitus: Continue Lantus to 5U BID Placed on Accu-Cheks with NovoLog SSI Med/Tele VTE ppx: Heparin Diet: REHANA ALEJANDRE Full Code Admission and Anticipated Discharge Date Admission Date: July 27, 2023 Supervising Physician Co-Signing Physician Notes Attending Physician Supervision Note: I independently interviewed and examined the patient and verified the parson history and physical, reviewed labs and image studies and agree with findings and care plan noted above. Heel ulcer with osteomyelitis - s/p calcanectomy 08/01. h/o Staph aureus and Pseudomonas in culture -Wound VAC in place - continue -Per podiatry - -Retention sutures in the proximal aspect of the surgical site to be removed by august 15. -potential graft closure or flap closure in the future, healing with secondary intention, or surgical flap/plastics closure. -Continue meropenem -will need for 6 weeks -Should not be switched to ertapenem since that will not have pseudomonal coverage. -quinolone not chosen as choice d/t QTc of 499 and bifascicular block. Right shoulder pain - since fall. Xrays done then negative. -ortho eval - calcific tendinitis/rotator cuff injury - PT/OT Anemia - s/p 1 units prbc. Incentive spirometry since mostly in bed due to heel infection Chronic HFpEF - resumed home dose of bumex - 08/06. tolerating well. continue to monitor renal function. DVT prophylaxisheparin subcu Awaiting placement Subjective Patient seen and evaluated at bedside this morning. No acute events overnight. Ortho consult for shoulder nothing to do. Continue PT. Review of Systems Review of Systems: reviewed, per HPI Physical Exam Physical Exam: Constitutional: well-appearing, no acute distress HEENT: NCAT, no conjunctival injection CV: extremities well-perfused, no LE edema Resp: no increased work of breathing MSK:L heel wound vac in place, functioning appropriately Skin: warm, dry, no rash appreciated : jordan in place Neuro: alert, oriented, no focal neurologic deficit appreciated Results & Data Results & Data Vital Signs (Past 12 Hours) Vital Signs Temp Pulse Pulse Resp BP BP Pulse Ox 08/10/23 14:01 36.6 C 69 18 176/77 H 98 08/10/23 13:46 08/10/23 11:35 36.8 C 71 17 168/80 H 100 08/10/23 07:33 36.4 C L 64 18 148/76 H 99 O2 Del Method O2 Flow Rate 08/10/23 14:01 Nasal Cannula 2 08/10/23 13:46 Nasal Cannula 2 08/10/23 11:35 Nasal Cannula 2 08/10/23 07:33 Nasal Cannula 2 Resident Activity Tracking Resident Involvement: Resident Care Provided Care Provided: Adult Hospital Medicine (1) Ulcer of right heel Non-pressure ulcer stage: with necrosis of bone Qualified Code(s): L97.414 - Non-pressure chronic ulcer of right heel and midfoot with necrosis of bone (2) Diabetic foot ulcer Diabetes mellitus type: type 2 Diabetic foot ulcer location: heel Laterality: right Non-pressure ulcer stage: with fat layer exposed Qualified Code(s): E11.621 - Type 2 diabetes mellitus with foot ulcer; L97.412 - Non- pressure chronic ulcer of right heel and midfoot with fat layer exposed (8) Hypertension Hypertension type: primary hypertension Qualified Code(s): I10 - Essential (primary) hypertension (10) Anemia Anemia type: unspecified type Qualified Code(s): D64.9 - Anemia, unspecified
--- NOTE | 2023-08-11 11:16 | Hospitalist Progress Note ---
Date of Service August 11, 2023 Assessment & Plan (1) Ulcer of right heel: (2) Diabetic foot ulcer: (3) CKD (chronic kidney disease) stage 4, GFR 15-29 ml/min: (4) Ambulatory dysfunction: (5) (HFpEF) heart failure with preserved ejection fraction: (6) SOB (shortness of breath): (7) Hypercholesteremia: (8) Hypertension: (9) Anxiety: (10) Anemia: (11) Hyponatremia: (12) Shoulder pain, right: Plan Awaiting SNF placement - accepted at [facility], pursuing [facility] placement Osteomyelitis/ Right heel diabetic foot ulcer: Will need PICC for discharge - order placed, hospital does not have supplies to complete, on schedule for Sunday MRI ankle consistent with osteomyelitis Wound culture taken 07/27, + pseudomonas, intermediate sensitivity to Cefepime H/o Pseudomonas on 11/21/2022 and Staph aureus on 01/04/2023 Blood cultures negative at 48 hours ID consulted, appreciate recs: Continue Meropenem, will need 6 weeks of IV abx + weekly labs following discharge (CBC, CMP, ESR/CRP) Baseline ESR 101, CRP 3.94 Podiatry consulted, s/p partial calcanectomy 08/01, intraoperative would culture 08/01 preliminarily negative Retention sutures in place on proximal aspect of surgical site; must be removed August 15 Shoulder pain, right present since prior admission to [facility] during which she had a fall ortho consult - nothing to do, supportive care and continue to work with PT Anemia: Low baseline hemoglobin likely in the setting of CKD Continue iron supplementation Transfusion threshold remains for Hgb<7 or symptomatic anemia Ambulatory Dysfunction: Patient lives alone, has difficulty getting up from current bed PT/OT recommending placement Stable for discharge at this point, case management following for dispo needs Pulmonary edema/HFpEF/hypertension: Currently without shortness of breath Bumex 2mg daily Follow renal function panel and magnesium level CKD stage IV: Follow Cr QAM lab monitoring Diabetes mellitus: Continue Lantus to 5U BID Placed on Accu-Cheks with NovoLog SSI Med/surg VTE ppx: Heparin Diet: REHANA ALEJANDRE Full Code Admission and Anticipated Discharge Date Admission Date: July 27, 2023 Supervising Physician Co-Signing Physician Notes Attending Physician Supervision Note: I independently interviewed and examined the patient and verified the parson history and physical, reviewed labs and image studies and agree with findings and care plan noted above. Heel ulcer with osteomyelitis - s/p calcanectomy 08/01. h/o Staph aureus and Pseudomonas in culture -Wound VAC in place - continue -Per podiatry - -Retention sutures in the proximal aspect of the surgical site to be removed by august 15. -potential graft closure or flap closure in the future, healing with secondary intention, or surgical flap/plastics closure. -Continue meropenem -will need for 6 weeks -Should not be switched to ertapenem since that will not have pseudomonal coverage. -quinolone not chosen as choice d/t QTc of 499 and bifascicular block. Right shoulder pain - since fall. Xrays done then negative. -ortho eval - calcific tendinitis/rotator cuff injury - PT/OT Anemia - s/p 1 units prbc. Incentive spirometry since mostly in bed due to heel infection Chronic HFpEF - resumed home dose of bumex - 08/06. tolerating well. continue to monitor renal function. DVT prophylaxisheparin subcu Awaiting placement Subjective Patient seen and evaluated at bedside this morning. No acute events overnight. Ortho consult for shoulder nothing to do. Continue PT. Review of Systems Review of Systems: reviewed, per HPI Physical Exam Physical Exam: Constitutional: well-appearing, no acute distress HEENT: NCAT, no conjunctival injection CV: extremities well-perfused, no LE edema Resp: no increased work of breathing MSK:L heel wound vac in place, functioning appropriately Skin: warm, dry, no rash appreciated : jordan in place Neuro: alert, oriented, no focal neurologic deficit appreciated Results & Data Results & Data Vital Signs (Past 12 Hours) Vital Signs Temp Pulse Resp BP Pulse Ox O2 Del Method 08/11/23 10:25 Nasal Cannula 08/11/23 07:09 36.7 C 70 18 172/75 H 97 Room Air Resident Activity Tracking Resident Involvement: Resident Care Provided Care Provided: Adult Hospital Medicine (1) Ulcer of right heel Non-pressure ulcer stage: with necrosis of bone Qualified Code(s): L97.414 - Non-pressure chronic ulcer of right heel and midfoot with necrosis of bone (2) Diabetic foot ulcer Diabetes mellitus type: type 2 Diabetic foot ulcer location: heel Laterality: right Non-pressure ulcer stage: with fat layer exposed Qualified Code(s): E11.621 - Type 2 diabetes mellitus with foot ulcer; L97.412 - Non- pressure chronic ulcer of right heel and midfoot with fat layer exposed (8) Hypertension Hypertension type: primary hypertension Qualified Code(s): I10 - Essential (primary) hypertension (10) Anemia Anemia type: unspecified type Qualified Code(s): D64.9 - Anemia, unspecified
--- NOTE | 2023-08-12 14:15 | Hospitalist Progress Note ---
Date of Service August 12, 2023 Assessment & Plan (1) Ulcer of right heel: (2) Diabetic foot ulcer: (3) CKD (chronic kidney disease) stage 4, GFR 15-29 ml/min: (4) Ambulatory dysfunction: (5) (HFpEF) heart failure with preserved ejection fraction: (6) SOB (shortness of breath): (7) Hypercholesteremia: (8) Hypertension: (9) Anxiety: (10) Anemia: (11) Hyponatremia: (12) Shoulder pain, right: Plan Stable for discharge to SNF/rehab; accepted at [facility] - will hold bed, dc pending PICC placement Osteomyelitis/ Right heel diabetic foot ulcer: Will need PICC for discharge - order placed, hospital does not have supplies to complete, on schedule for Sunday MRI ankle consistent with osteomyelitis Wound culture taken 07/27, + pseudomonas, intermediate sensitivity to Cefepime H/o Pseudomonas on 11/21/2022 and Staph aureus on 01/04/2023 Blood cultures negative at 48 hours ID consulted, appreciate recs: Continue Meropenem, will need 6 weeks of IV abx + weekly labs following discharge (CBC, CMP, ESR/CRP) Baseline ESR 101, CRP 3.94 Podiatry consulted, s/p partial calcanectomy 08/01, intraoperative would culture 08/01 preliminarily negative Retention sutures in place on proximal aspect of surgical site; must be removed August 15 Shoulder pain, right present since prior admission to [facility] during which she had a fall ortho consult - nothing to do, supportive care and continue to work with PT Anemia: Low baseline hemoglobin likely in the setting of CKD Continue iron supplementation Transfusion threshold remains for Hgb<7 or symptomatic anemia Ambulatory Dysfunction: Patient lives alone, has difficulty getting up from current bed PT/OT recommending placement Stable for discharge at this point, case management following for dispo needs Pulmonary edema/HFpEF/hypertension: Currently without shortness of breath Bumex 2mg daily CKD stage IV: Follow Cr QAM lab monitoring Diabetes mellitus: Continue Lantus to 5U BID Placed on Accu-Cheks with NovoLog SSI Med/surg VTE ppx: Heparin Diet: REHANA ALEJANDRE Full Code Admission and Anticipated Discharge Date Admission Date: July 27, 2023 Supervising Physician Co-Signing Physician Notes Attending Physician Supervision Note: I independently interviewed and examined the patient and verified the parson history and physical, reviewed labs and image studies and agree with findings and care plan noted above. Heel ulcer with osteomyelitis - s/p calcanectomy 08/01. h/o Staph aureus and Pseudomonas in culture -Wound VAC in place - continue -Per podiatry - -Retention sutures in the proximal aspect of the surgical site to be removed by august 15. -potential graft closure or flap closure in the future, healing with secondary intention, or surgical flap/plastics closure. -Continue meropenem -will need for 6 weeks -Should not be switched to ertapenem since that will not have pseudomonal coverage. -quinolone not chosen as choice d/t QTc of 499 and bifascicular block. Right shoulder pain - since fall. Xrays done then negative. -ortho eval - calcific tendinitis/rotator cuff injury - PT/OT Anemia - s/p 1 units prbc. Incentive spirometry since mostly in bed due to heel infection Chronic HFpEF - resumed home dose of bumex - 08/06. tolerating well. continue to monitor renal function. DVT prophylaxisheparin subcu Awaiting placement Subjective Patient seen and evaluated at bedside this morning. No acute events overnight. Catheter out today. PICC line order placed, no supplies in hospital - should have more tomorrow. Review of Systems Review of Systems: reviewed, per HPI Physical Exam Physical Exam: Constitutional: well-appearing, no acute distress HEENT: NCAT, no conjunctival injection CV: extremities well-perfused, no LE edema Resp: no increased work of breathing MSK:L heel wound vac in place, functioning appropriately Skin: warm, dry, no rash appreciated : jordan out Neuro: alert, oriented, no focal neurologic deficit appreciated Results & Data Results & Data Vital Signs (Past 12 Hours) Vital Signs O2 Del Method O2 Flow Rate 08/12/23 07:20 Room Air 2 Resident Activity Tracking Resident Involvement: Resident Care Provided Care Provided: Adult Hospital Medicine (1) Ulcer of right heel Non-pressure ulcer stage: with necrosis of bone Qualified Code(s): L97.414 - Non-pressure chronic ulcer of right heel and midfoot with necrosis of bone (2) Diabetic foot ulcer Diabetes mellitus type: type 2 Diabetic foot ulcer location: heel Laterality: right Non-pressure ulcer stage: with fat layer exposed Qualified Code(s): E11.621 - Type 2 diabetes mellitus with foot ulcer; L97.412 - Non- pressure chronic ulcer of right heel and midfoot with fat layer exposed (8) Hypertension Hypertension type: primary hypertension Qualified Code(s): I10 - Essential (primary) hypertension (10) Anemia Anemia type: unspecified type Qualified Code(s): D64.9 - Anemia, unspecified
[2023-08-12 19:54] VITALS: O2SAT 99
[2023-08-13 07:45] VITALS: RESP 18; TEMP 98.6
[2023-08-13 10:50] LABS: BUN Creatinine Ratio 34.7 (10-20); Calcium 8.3 mg/dl (8.6-10.3); Creatinine Clr Calc Pharmacy 37.1 ml/min; Est GFR (African American) 29.7 ml/min; Est GFR (Non-African American) 25.6 ml/min
--- NOTE | 2023-08-13 12:42 | Discharge Summary ---
Date of Service August 13, 2023 Admission HPI Per Admitting Provider The patient is a 63-year-old female with a past medical history including diabetic right heel ulcer, CKD stage IV, ambulatory dysfunction, morbid obesity, asthma, HFpEF, hypertension, hypercholesterolemia, anxiety, fibromyalgia, GERD, morbid obesity, and depression. She just been discharged from inpatient rehab 3 days ago, and notes a return of weeping of right heel wound, progressive shortness of breath, and low back pain with difficulty getting in and out of bed. Her most recent hospitalization was from 05/04-05/24/2023 for problems including urinary tract infection, and diabetic foot ulcer. She had been discha rged to inpatient rehab in [place], and been there for 3 weeks, and was discharged 3 days ago. She then developed close as noted above. Admission Exam Per Admitting Provider The patient is awake, alert and oriented 3, well developed and well nourished, normocephalic and atraumatic, sitting upright in bed and in no acute distress. HEENT--PERRL, EOMI, mucous membranes and oropharynx normal Neck--supple. No JVD. No bruits. Thyroid normal, trachea midline, no adenopathy. Heart--normal S1 and S2. No murmurs, rubs or gallops. Lungs--clear bilaterally, no respiratory distress, no accessory muscle use. Abdomen--normal bowel sounds and soft. Nontender. Nondistended, no hernias or masses, no organomegaly. Extremities--right heel with wound as noted in ED notes, has been redressed this evening Dermatologic--as above Neurologic--cranial nerves II through XII grossly intact. Rheumatologic--limited exam due to body habitus Psychiatric--normal affect. Principal Diagnosis Calcaneal osteomyelitis Discharge Exam Constitutional: well-appearing, no acute distress HEENT: NCAT, no conjunctival injection CV: extremities well-perfused, no LE edema Resp: no increased work of breathing MSK:L heel wound vac in place, functioning appropriately Skin: warm, dry, no rash appreciated : jordan out Neuro: alert, oriented, no focal neurologic deficit appreciated Discharge Data Allergies Allergy/AdvReac Type Severity Reaction Status Date / Time amoxicillin Allergy Intermediate hives Verified 07/27/23 20:52 dextromethorphan Allergy Intermediate Hives Verified 05/17/24 20:52 [From NyQuil] doxylamine [From NyQuil] Allergy Intermediate Hives Verified 07/27/23 20:52 latex Allergy Intermediate RASH Verified 07/27/23 20:52 Sulfa (Sulfonamide Allergy Intermediate RASH Verified 07/27/23 20:52 Antibiotics) clarithromycin AdvReac Intermediate HEART RACES Verified 07/27/23 20:52 Umesh'ata multigrain bread Allergy Intermediate Hives Uncoded 07/27/23 20:52 Consultations 07/27/23 20:50 ED Decision to Admit Stat 07/30/23 15:56 Consult Infectious Diseases Routine 07/30/23 16:30 Consult Podiatry Routine 08/09/23 14:16 Consult Orthopedic Surgery Routine Procedures Performed Operation Date: 08/02/23 08:20 Actual Procedures p Right Partial Calcanectomy(Right) - Rohith Self DPM Ordered Studies 07/27/23 17:41 CT lumbar spine wo con Stat 07/30/23 11:11 MRI Ankle [MR ankle RT wo con] Routine Hospital Course (1) Ulcer of right heel: (2) Diabetic foot ulcer: (3) CKD (chronic kidney disease) stage 4, GFR 15-29 ml/min: (4) Ambulatory dysfunction: (5) (HFpEF) heart failure with preserved ejection fraction: (6) SOB (shortness of breath): (7) Hypercholesteremia: (8) Hypertension: (9) Anxiety: (10) Anemia: (11) Hyponatremia: (12) Shoulder pain, right: Plan Stable for discharge to SNF/rehab; accepted at [facility] - will hold bed, dc pending PICC placement Osteomyelitis/ Right heel diabetic foot ulcer: Will need PICC for discharge - order placed, hospital does not have supplies to complete, on schedule for Sunday MRI ankle consistent with osteomyelitis Wound culture taken 07/27, + pseudomonas, intermediate sensitivity to Cefepime H/o Pseudomonas on 11/21/2022 and Staph aureus on 01/04/2023 Blood cultures negative at 48 hours ID consulted, appreciate recs: Continue Meropenem, will need 6 weeks of IV abx + weekly labs following discharge (CBC, CMP, ESR/CRP) Baseline ESR 101, CRP 3.94 Podiatry consulted, s/p partial calcanectomy 08/01, intraoperative would culture 08/01 preliminarily negative Retention sutures in place on proximal aspect of surgical site; must be removed August 15 Shoulder pain, right present since prior admission to [facility] during which she had a fall ortho consult - nothing to do, supportive care and continue to work with PT Anemia: Low baseline hemoglobin likely in the setting of CKD Continue iron supplementation Transfusion threshold remains for Hgb<7 or symptomatic anemia Ambulatory Dysfunction: Patient lives alone, has difficulty getting up from current bed PT/OT recommending placement Stable for discharge at this point, case management following for dispo needs Pulmonary edema/HFpEF/hypertension: Currently without shortness of breath Bumex 2mg daily CKD stage IV: Follow Cr QAM lab monitoring Diabetes mellitus: Continue Lantus to 5U BID Placed on Accu-Cheks with NovoLog SSI Total Time Total Time Spent Total Time Spent (In Minutes): <30 Discharge Plan Discharge Items Patient Disposition: Transfer Inpatient Rehab Fac Reason For Visit: PULMONARY EDEMA, DIABETIC FOOT ULCER, BACK PAIN Discharge Diagnosis: R heel debridement, need for IV abx Activity: Per Instructions section Non-emergency contact: Primary Care Provider Call non-emergency contact if: you have any medication questions, your pain is not controlled and you have a fever Follow-up/Referrals: Natali Langston, [Primary Care Provider] - Diet: Carb Consistent or DM2 and Heart Healthy Addtl Attending Provider Instructions: You were admitted to the hospital for right heel wound and heart failure exacerbation. You were treated with surgery to remove infected bone and antibiotics for your heal infection. You were also treated with diuretics for your heart failure. Your kidney function while you were here remained stable. You will need to have labs monitored while you are in rehab. You should have a weekly BMP test to monitor your kidney function. A discharge summary will be sent to your primary care physician to ensure continuity of care. Please bring this discharge summary with you to your next office appointment so that your provider can review it at that time. Follow-up appointments: Make a follow-up appointment with your PCP within the next week. It is very important that you follow up with them shortly after discharge from the hospital. Keep all your follow-up appointments as already scheduled. If you cannot make an appointment, notify your provider. Medications: Your medication list has been reviewed and reconciled upon discharge to ensure accuracy and continuity of care. An updated list of all your medications is included with your hospital discharge paperwork. Please review this list closely, and make note of any changes. Take your medications as instructed; do not skip a dose of your medicines. Make sure all of your doctors know every medicine you are taking (including mosb-uzx-mcweonx medicines, vitamins, and supplements). Call your primary care provider before taking any new medicines (including utzz-dun-ghyrujg medicines, vitamins, and supplements), because some of these may interact with your current medications, or may make your symptoms worse. Tell your primary care provider if you cannot afford your medications. CONTACT YOUR PRIMARY CARE PROVIDER if you experience any of the following: Increased shortness of breath Increased pain in your heel or fever Difficulty following your treatment plan, or difficulty taking medications CALL 911 OR GO TO THE EMERGENCY DEPARTMENT if you experience any of the following: Sudden, severe abdominal pain or nausea/vomiting Severe chest pain, or chest pain that radiates (moves) to your jaw or arm Sudden, severe shortness of breath or difficulty breathing Thank you for allowing us to participate in your care. Pending Studies at Discharge: No Stand-Alone Forms: My [facility] [employer] Customer Support Skilled Items Patient informed of condition?: Yes DNR: No Discharge Level of Care: Acute rehab Communicable Disease: No Discharge Prognosis: Stable Lines: Mid-Line Urinary Catheter: No Medications and DC Order Prescriptions: New bumetanide 1 mg Tablet 2 mg PO QAM Qty: 60 0RF amitriptyline 100 mg Tablet 100 mg PO HS Qty: 30 0RF diclofenac sodium [Voltaren Arthritis Pain] 1 % Gel 2 g EXT QID Qty: 100 0RF Rx Instructions: Apply to R shoulder Continued (DME) FreeStyle Precision Perico Strips Strip See Rx Instructions .Route Rx Instructions: Test once daily with Freestyle Davy PRN (DME) FreeStyle Davy 14 Day Sensor Kit See Rx Instructions .Route Rx Instructions: As directed (DME) FreeStyle Davy 14 Day [place] Misc See Rx Instructions .Route Rx Instructions: As directed (DME) pen needle, diabetic [BD Ultra-Fine Siria Pen Needle] 32 gauge x 5/32" needle See Rx Instructions .Route Rx Instructions: Use 4 per day with insulin injection (DME) lancets [OneTouch Delica Lancets] 30 gauge misc See Rx Instructions .Route Rx Instructions: Test blood sugar once daily PRN insulin aspart U-100 [Novolog U-100 Insulin aspart] 100 unit/mL solution 20 unit subcut TIDWMEAL loratadine 10 mg tablet 10 mg PO DAILY PRN (Reason: Allergy Symptoms) levothyroxine [Synthroid] 175 mcg Tablet 175 mcg PO QAM fluticasone propionate 50 mcg/actuation Addison,Suspension 1 spray INTRANASAL QAM atorvastatin 80 mg tablet 80 mg PO HS cyanocobalamin (vitamin B-12) 1,000 mcg tablet 1,000 mcg PO DAILY Qty: 30 5RF folic acid 1 mg tablet 1,000 mcg PO DAILY Qty: 30 0RF Rx Instructions: stop after 30 days. ferrous sulfate 325 mg (65 mg iron) tablet 325 mg PO DAILY Qty: 30 1RF albuterol sulfate 90 mcg/actuation HFA aerosol inhaler 2 puff INHALATION QID PRN (Reason: wheezing ) omeprazole 20 mg capsule,delayed release(DR/EC) 20 mg PO DAILY acetaminophen 325 mg Tablet 650 mg PO Q4H PRN (Reason: pain) Qty: 30 0RF amlodipine 10 mg tablet 10 mg PO DAILY Qty: 30 0RF cholecalciferol (vitamin D3) 50 mcg (2,000 unit) capsule 50 mcg PO QAM simvastatin 40 mg tablet 40 mg PO HS Levemir FlexPen 100 unit/mL (3 mL) insulin pen 20 unit SUBCUT BID Discontinued amitriptyline 50 mg Tablet 100 mg PO HS bumetanide 1 mg tablet 0 mg PO QAM Rx Instructions: Pt unsure of this medication at this date/time. Original Directions: 2mg by mouth once every morning Discharge Orders: Discharge Order (Routine); Ordered 08/13/23 Ordered By: Aristides Calvert/Other Patient Handouts: Nutrition for Wound Healing, Managing Type 2 Diabetes Admission Data Admit Date/Time: 07/27/23 21:45 Attending Provider: Mj Olivares Admit Provider: Quincy Pond Primary Care Provider: Natali Langston Other Providers: [facility]; [facility]Care; [facility],; Quincy Pond; Rohith Self; Mj Olivares; [facility]; Bryan Zuniga Other Interventions: Discharge Summary Assessment (RN) Last Done: 08/13/23 13:26 Supervising Physician Co-Signing Physician Notes chart reviewed, case d/w Dr Pickens, pt seen very briefly - was being assisted on bedpan/cleanup and then once i would have been able to revisit she was transported [facility] no new problems identified. vitals noted. otherwise as above Heel ulcer with osteomyelitis - s/p calcanectomy 08/01. h/o Staph aureus and Pseudomonas in culture -Wound VAC in place - continue -Per podiatry - -Retention sutures in the proximal aspect of the surgical site to be removed by august 15. -potential graft closure or flap closure in the future, healing with secondary intention, or surgical flap/plastics closure. -Continue meropenem -will need for 6 weeks -Should not be switched to ertapenem since that will not have pseudomonal coverage. -quinolone not chosen as choice d/t QTc of 499 and bifascicular block. Right shoulder pain - since fall. Xrays done then negative. -ortho eval - calcific tendinitis/rotator cuff injury - PT/OT Anemia - s/p 1 units prbc. Incentive spirometry since mostly in bed due to heel infection Chronic HFpEF - resumed home dose of bumex - 08/06. tolerating well. continue to monitor renal function. does have a tendency to show edema from venous stasis as well as CHF - and when diuresed for what is predominantly venous stasis she will often show creatinine elevations. DVT prophylaxisheparin subcu for SNF today Resident Activity Tracking Resident Involvement: Resident Care Provided Care Provided: Adult Hospital Medicine
[2023-08-13 13:34] VITALS: BP 174/82; PULSE 71
--- NOTE | 2023-08-13 17:25 | Billing Data ---
Date of Service August 13, 2023 Coding Level of Care Code 83807 IN/OBS DISCH 30 MIN/LESS
--- NOTE | 2023-08-19 23:05 | Operative Report ---
Post Operative Report Pre & Post Diagnosis Operation Date: 08/02/23 08:20 Pre-Op Diagnosis: (1) Acute osteomyelitis of right calcaneus: (2) Ulcer of right heel: (3) Diabetic foot ulcer: Post-Op Diagnosis: (1) Acute osteomyelitis of right calcaneus: (2) Ulcer of right heel: (3) Diabetic foot ulcer: I identified the patient and participated in the time-out.: Yes Procedure Operation Date: 08/02/23 08:20 Actual Procedures p Right Partial Calcanectomy(Right) - Rohith Self DPM Surgeon Rohith Self DPM Bung Remover None Estimated Blood Loss 30 Findings Consistent with Post-Op Diagnosis plantar most aspect of the calcaneus was notably softened and nonviable. More proximal and posterior the bone was more clinically healthy in appearance. A sagittal saw was required to remove the posterior aspect of the calcaneus Specimens calcaneus bone was sent for pathology and culture and sensitivity testing. Anesthesia Type MAC Disposition Accompanied Patient To Recovery: Yes Disposition: Recovery Room Indications this patient is a recent hospital consult is with a long-standing history of a chronic ulcer on the right calcaneus. This ulcer has been treated actively for the last year or so with underlying osteomyelitis noted recently. She has developed increasing signs and symptoms of local infection as well. Because of this, she was admitted to the hospital from her rehab center. Preoperative instructions, postoperative instructions, relative risks, and outcomes were all discussed. Consent was obtained for this right heel partial calcanectomy. Description of Procedure the patient was brought to the operating room placed on the operating table in the supine position. The right lower extremity was scrubbed prepped and draped in the usual aseptic manner. A well-padded pneumatic ankle/calf tourniquet was applied to the patient's right ankle. The limb was elevated, exsanguinated, and the tourniquet was inflated to 250 m mercury. Attention was directed to the plantar aspect of the rightFoot where a calcaneal ulcer was noted. The ulcer extended directly to the bone immediately and was large, measuring 4 x 4 cm. It extended 3 cm deep to the plantar aspect of the calcaneus which was notably nonviable, ballotable, and easily fractured. The wound bed was extensively debrided utilizing a 15 blade and curette. Once all nonviable soft tissue was excised, a sagittal saw was utilized to remove the posterior aspect of the calcaneus. As much healthy calcaneal bone as possible was left to help encourage future viability of the limb overall. The surgical site was flushed with copious amounts of sterile saline and packed with iodoform gauze packing. Further, the ulcer was extended distal plantarly during the surgical approach to explore the wound further. These margins were house cleaner supervisor, clinically, and able to be sutured, helping hold in the packing. The incisions were dressed with Xeroform gauze, 4 x 4 gauze, Kerlix, and an Viktor wrap. The tourniquet was deflated and immediate hyperemia was noted to the digits. The patient tolerated the procedure well and was transferred to the recovery room with vital signs stable and vascular status intact to the feet. Following postoperative monitoring, the patient will be transferred back to the floor for further examination. I attest to the content of the Intraoperative Record and any orders documented therein. Any exceptions are noted below.
== END 2023-08-13 15:05 | DRG 629 ==
LOC: ED 17:11 → 2S 21:45 → SUATTDRO 21:45 → 2S 22:44 → 3W 08-01 23:20
DX: E78.00 Pure hypercholesterolemia, unspecified; Z79.890 Hormone replacement therapy; Z68.43 Body mass index [BMI] 50.0-59.9, adult; M75.31 Calcific tendinitis of right shoulder; E11.22 Type 2 diabetes mellitus with diabetic chronic kidney disease; E11.69 Type 2 diabetes mellitus with other specified complication; I50.32 Chronic diastolic (congestive) heart failure; K21.9 Gastro-esophageal reflux disease without esophagitis; D63.1 Anemia in chronic kidney disease; F41.9 Anxiety disorder, unspecified; L97.414 Non-pressure chronic ulcer of right heel and midfoot with necrosis of bone; F32.A Depression, unspecified; E11.621 Type 2 diabetes mellitus with foot ulcer; E87.1 Hypo-osmolality and hyponatremia; M86.8X7 Other osteomyelitis, ankle and foot; Z88.8 Allergy status to other drugs, medicaments and biological substances; Z86.16 Personal history of COVID-19; I13.0 Hypertensive heart and chronic kidney disease with heart failure and stage 1 through stage 4 chronic kidney disease, or unspecified chronic kidney disease; E66.01 Morbid (severe) obesity due to excess calories; Z88.2 Allergy status to sulfonamides; N18.4 Chronic kidney disease, stage 4 (severe); B96.5 Pseudomonas (aeruginosa) (mallei) (pseudomallei) as the cause of diseases classified elsewhere; M79.7 Fibromyalgia; Z79.4 Long term (current) use of insulin; Z79.899 Other long term (current) drug therapy; Z91.040 Latex allergy status

== ENCOUNTER 2023-12-07 14:35 | Inpatient (IN) ==
--- NOTE | 2023-12-07 16:07 | Emergency Department Note ---
ED Provider Note History of Present Illness Chief Complaint: Foot Injury/Pain Time Seen by Provider: 12/07/23 16:01 Source: patient Mode of arrival: EMS Limitations: no limitations This patient is a 63-year-old female who presents to the emergency department via EMS for evaluation of generalized pain. Patient currently resides at [facility] in [place]. She was at her podiatry appointment today at [facility] and states that after her appointment she began having a lot of pain and knew that she could not make it back to [place]. She reports generalized abdominal pain and states that she felt like her "intestines were exploding." She was unable to control her stool. She states that she has pain in her low back/tailbone from a pressure ulcer and also notes a cellulitis of her right leg. She is on oral morphine for these. She also reports an increase in anxiety and mood swings. She reports that her amitriptyline was recently changed without her knowledge. She is treated at the [facility] for a right heel wound which has been improving. She reports that the right upper leg cellulitis has been present for a few weeks and seems to be worsening. She is on medication for this but does not know what it is. She denies any fevers. I spoke with nursing staff at the patient's rehabilitation facility, who state she is currently being treated for C. difficile. They are not sure what treatment she is on for the cellulitis and are not sure how long it has been present. Home Medications Medication Instructions Recorded Confirmed Type fluticasone propionate 50 50 mcg intranasal QAM 03/10/19 12/07/23 History mcg/actuation nasal spray,suspension (Flonase Allergy Relief) levothyroxine 175 mcg tablet 175 mcg PO QAM 03/10/19 12/07/23 History (Synthroid) loratadine 10 mg tablet 5 mg PO DAILY PRN Allergy Symptoms 01/19/21 12/07/23 History pen needle, diabetic 32 gauge x 06/20/21 05/03/23 History " (BD Ultra-Fine Siria Pen Needle) blood sugar diagnostic (FreeStyle 06/29/21 05/03/23 History Precision Perico Strips) flash glucose scanning reader 06/29/21 05/03/23 History (FreeStyle Davy 14 Day [place]) flash glucose sensor (FreeStyle 06/29/21 05/03/23 History Davy 14 Day Sensor kit) lancets 30 gauge (OneTouch Delica 06/29/21 05/03/23 History Lancets) cholecalciferol (vitamin D3) 50 50 mcg PO QAM 02/09/22 12/07/23 History mcg (2,000 unit) capsule (Vitamin D3) albuterol sulfate 90 mcg/actuation 2 puff inhalation QID PRN wheezing 03/19/23 12/07/23 History aerosol inhaler (Proventil HFA) acetaminophen 325 mg tablet 650 mg (2 x 325 mg) PO Q4H PRN 04/12/23 12/07/23 Rx pain #30 tabs insulin aspart U-100 100 unit/mL 20 unit subcut TIDWMEAL 04/13/23 12/07/23 History subcutaneous solution (Novolog U-100 Insulin aspart) insulin detemir U-100 100 unit/mL 0 unit subcut BID 07/27/23 12/07/23 History (3 mL) subcutaneous pen (Levemir FlexPen) simvastatin 40 mg tablet 40 mg PO HS 07/27/23 12/07/23 History diclofenac sodium 1 % topical gel 2 g EXT QID #100 grams 08/13/23 12/07/23 Rx (Voltaren Arthritis Pain) amitriptyline 100 mg tablet 0 mg PO HS Did Not Take/Environmental Maintenance Worker Med 12/07/23 12/07/23 History amitriptyline 25 mg tablet 25 mg PO DAILY 12/07/23 12/07/23 History bumetanide 1 mg tablet 2 mg PO QAM 12/07/23 12/07/23 History collagenase clostridium histo. 250 250 unit topical 2XD 12/07/23 12/07/23 History unit/gram topical ointment (Santyl) cyanocobalamin (vitamin B-12) 1,000 mcg PO DAILY 12/07/23 12/07/23 History 1,000 mcg tablet (Vitamin B-12) ferrous sulfate 325 mg (65 mg 325 mg PO DAILY 12/07/23 12/07/23 History iron) tablet (Iron (ferrous sulfate)) insulin glargine 100 unit/mL 10 unit subcut DAILY 12/07/23 12/07/23 History subcutaneous solution (Lantus U-100 Insulin) lisinopril 20 mg tablet 20 mg PO DAILY 12/07/23 12/07/23 History pantoprazole 40 mg tablet,delayed 40 mg PO DAILY 12/07/23 12/07/23 History release (Protonix) vancomycin 125 mg capsule 125 mg PO Q6 12/07/23 12/07/23 History Allergies Allergy/AdvReac Type Severity Reaction Status Date / Time amoxicillin Allergy Intermediate hives Verified 12/07/23 21:03 dextromethorphan Allergy Intermediate Hives Verified 12/07/23 21:03 [From NyQuil] doxylamine [From NyQuil] Allergy Intermediate Hives Verified 12/07/23 21:03 gluten Allergy Intermediate Hives Verified 12/07/23 21:03 latex Allergy Intermediate RASH Verified 12/07/23 21:03 Sulfa (Sulfonamide Allergy Intermediate RASH Verified 12/07/23 21:03 Antibiotics) clarithromycin AdvReac Intermediate HEART RACES Verified 12/07/23 21:03 Umesh's multigrain bread Allergy Intermediate Hives Uncoded 12/07/23 18:28 Past Med/Surg History Problem List UTI (urinary tract infection) C. difficile colitis History of osteomyelitis Cellulitis Pressure ulcer Acute kidney injury superimposed on chronic kidney disease Shoulder pain, right Acute osteomyelitis of right calcaneus Ambulatory dysfunction (Acute) Left hip pain (Acute) Pain in right knee (Acute) Anemia (Acute) Weakness (Acute) CKD (chronic kidney disease) stage 4, GFR 15-29 ml/min Anemia (Acute) Ambulatory dysfunction (Acute) Symptomatic anemia (Acute) Acute dyspnea (Acute) Diabetic foot ulcer (Acute) Junctional rhythm Morbid obesity with BMI of 60.0-69.9, adult Asthma COLD WEATHER FLARES UP/DENIES RECENT FLARE UP/ALBUTEROL ONLY PRN (HFpEF) heart failure with preserved ejection fraction SOB (shortness of breath) Leukocytosis Diabetic foot ulcer Left arm pain Elevated troponin Uncontrolled diabetes mellitus with hyperglycemia, with long-term current use of insulin Acute metabolic encephalopathy Acute onset of severe vertigo Dysphagia Diabetic ulcer of right heel (Acute) Colon cancer screening Encounter for pre-operative examination Hypertension (Chronic) Hypercholesteremia (Chronic) Anxiety (Chronic) Heart block (Chronic) Migraine LAST ONE JANUARY 2017 ( WAS JOB RELATED) Hypothyroidism (Chronic) Diverticular disease Family hx of colon cancer MOTHER - HAD OBSTRUCTIVE BOWEL CANCER Fibromyalgia Uses prosthesis Early awakening Proteinuria (Chronic) Anemia Chronic kidney disease, stage III (moderate) (Chronic) Uncontrolled type 2 diabetes mellitus with hyperglycemia (Chronic) Metabolic syndrome Obesity Mixed hyperlipidemia Dietary counseling and surveillance Vitamin D deficiency Hypomagnesemia Peritonsillar abscess (Acute) Acute hyperglycemia (Acute) Failure of outpatient treatment (Acute) PERLITA (acute kidney injury) Morbid obesity with BMI of 50.0-59.9, adult Peritonsillar abscess recent admission @ [facility] 01/29/22 for this--per pt has finished all antibiotics for this, no further issues at this time Hypothyroidism GERD (gastroesophageal reflux disease) Osteoarthritis Depression Medical History Hyponatremia Ulcer of right heel Fall Pseudomonas infection History of anesthesia reaction woke up during shoulder arthroscopy RBBB Hypoxia Hyperglycemia due to type 2 diabetes mellitus Pneumonia due to COVID-19 virus COVID-19 hx of in 2019--per pt was hospitalized for COVID--states no symptoms currently Bifascicular block Foot drop LEFT Chronic back pain Hx of irritable bowel syndrome Cataract Bilateral Umbilical hernia Hiatal hernia PTSD (post-traumatic stress disorder) History of diverticulitis Tear of medial meniscus of right knee, current Diabetes mellitus with hyperglycemia, with long-term current use of insulin Neck pain Narrowing of C6-C7 with bone spurs. CAUSES NUMBNESS IN LEFT ARM Anxiety Hyperlipidemia Hypertension History of migraine Hyperosmolar hyponatremia Fibromyalgia Surgical History History of repair of right rotator cuff History of repair of left rotator cuff History of repair of ACL L S/P rotator cuff repair History of arthroscopy of right shoulder History of dilatation and curettage History of repair of ACL R History of esophagogastroduodenoscopy (EGD) History of colonoscopy History of D&C Family History Grandfather Diabetes Mother Myocardial infarction Heart disease Tobacco abuse Hx of CABG Family/Other Family history of diabetes mellitus Brother Family history of diabetes mellitus Father Aortic aneurysm Grandmother (Paternal) Cerebral aneurysm Stroke Other Family history of colon cancer in mother Social History Smoking Status: Never smoker Second Hand Exposure: No; Do You Dip or Chew Tobacco: No; Hx Alcohol Use: No Hx Substance Use: No Preferred Language: Dutch Communication Ability: Effective Visual Impairment: No Limitations Is Technician Required: No Beliefs That Will Affect Care: None marital status: Current Living Situation: Alone Feels Safe at Home: Yes Assistive Devices: Oxygen - Continuous and Walker Physical Exam Vital Signs Vital Signs - 24 hr 12/07/23 14:14 12/07/23 14:14 12/07/23 16:17 Temperature 37.5 C Temperature Source Oral Pulse Rate 91 H Pulse Rate [Finger] 80 Respiratory Rate 18 18 18 Respiratory Effort / Characteristics Non-Labored Respiratory Depth Normal Respiratory Pattern Blood Pressure 153/79 H Blood Pressure [Right Arm] Blood Pressure Mean 103 Blood Pressure Mean [Right Arm] Pulse Oximetry 100 97 Oxygen Delivery Method Room Air Room Air Sepsis Recent Fever Within 48 Hours No Sepsis New/Unexplained Change in Mental Status N/A Sepsis Action Taken by Nursing No Action Required 12/07/23 17:00 12/07/23 19:01 Temperature Temperature Source Pulse Rate 80 Pulse Rate [Finger] 87 Respiratory Rate 18 Respiratory Effort / Characteristics Non-Labored Spontaneous Respiratory Depth Normal Respiratory Pattern Regular Blood Pressure Blood Pressure [Right Arm] 154/76 H Blood Pressure Mean Blood Pressure Mean [Right Arm] 102 Pulse Oximetry 97 Oxygen Delivery Method Room Air Sepsis Recent Fever Within 48 Hours Sepsis New/Unexplained Change in Mental Status Sepsis Action Taken by Nursing VITALS: Vitals are noted on the nurse's note and reviewed by myself. GENERAL: This is a 63-year-old female, chronically unwell appearing. SKIN: There is a healing wound to the right heel, granulation tissue present, no drainage, no surrounding redness. Pressure ulcer noted to the sacral area. Induration noted of the right medial thigh with a central erythematous/ecchymotic appearing region. EYES: Pupils equal round and reactive to light and accommodation. MOUTH: Mucous membranes moist. HEART: Regular rate and rhythm without murmurs gallops or rubs. LUNGS: Clear to auscultation bilaterally without wheezes, rales or rhonchi. ABDOMEN: Positive bowel sounds x 4. Soft, generalized tenderness to palpation throughout. MUSCULOSKELETAL: Decreased mobility NEURO: Patient was alert and oriented to person place and time. Course Administered Medications Daptomycin 275 mg/ Syringe 5.5 mls @ 2.75 mls/min IV Q24H [facility]; Protocol Stop: 12/09/23 18:29 Last Admin: 12/07/23 19:40 Dose: 2.75 mls/min Documented By: JOHN Lactated Ringer's (Lr) 1,000 mls @ 125 mls/hr IV .Q8H WESLY Stop: 12/08/23 12:14 Last Admin: 12/07/23 21:38 Dose: 125 mls/hr Documented By: ABELINO Discontinued Medications Hydromorphone HCl (Hydromorphone Inj 1 Mg/Ml Syringe) 1 mg IV NOW STA Stop: 12/07/23 20:30 Last Admin: 12/07/23 22:36 Dose: Not Given Documented By: ABELINO Cefepime HCl (Maxipime) 20 mls @ 5 mls/min IV NOW STA; Protocol Stop: 12/07/23 20:46 Last Admin: 12/07/23 21:32 Dose: 5 mls/min Documented By: ABELINO Metronidazole (Flagyl) 500 mg in 100 mls @ 100 mls/hr IV NOW STA; Protocol Stop: 12/07/23 21:42 Last Infusion: 12/07/23 22:36 Dose: Infused Documented By: Admin: 12/07/23 21:35 Dose: 100 mls/hr Documented By: ABELINO Morphine Sulfate (Morphine Sulfate 10 Mg/Ml Carp/Vial) 6 mg IV NOW STA Stop: 12/07/23 16:17 Last Admin: 12/07/23 16:33 Dose: Not Given Documented By: SALBADOR Morphine Sulfate (Morphine Sulfate 4 Mg/Ml 1 Ml Carp\\Vial) Confirm Administered Dose 4 mg .ROUTE .STK-MED ONE Stop: 12/07/23 16:25 Last Admin: 12/07/23 16:33 Dose: 4 mg Documented By: SALBADOR Morphine Sulfate (Morphine Sulfate 2 Mg/Ml Carp) Confirm Administered Dose 2 mg .ROUTE .STK-MED ONE Stop: 12/07/23 16:26 Last Admin: 12/07/23 16:33 Dose: 2 mg Documented By: SALBADOR Medical Decision Making Differential Diagnosis Differential diagnosis includes cellulitis, abscess, osteomyelitis, sepsis, electrolyte imbalance, UTI, dehydration, among others. Laboratory Data Attestation: I reviewed the patient's lab results. 12/07/23 16:35 12/07/23 16:35 Lab Results 12/07/23 12/07/23 Range/Units 16:35 17:22 WBC 13.40 H (4.8-10.8) K/ul RBC 3.44 L (4.20-5.40) M/uL Hgb 9.3 L (12.0-16.0) g/dl Hct 28.9 L (37.0-47.0) % MCV 84.0 (80.0-100.0) fL MCH 27.0 (25.0-34.0) pg MCHC 32.2 (32.0-36.0) g/dL RDW Std Deviation 45.1 (36.4-46.3) fL RDW Coeff of Sylvia 14.7 H (11.5-14.5) % Plt Count 551 H (130-400) K/uL MPV 10.0 (9.4-12.4) fL Immature Gran % (Auto) 1.6 % Neut % (Auto) 75.4 % Lymph % (Auto) 15.4 % [place] % (Auto) 6.2 % Eos % (Auto) 1.0 % Baso % (Auto) 0.4 % Neut # (Auto) 10.10 H (1.40-6.50) K/uL Lymph # (Auto) 2.07 (1.20-3.40) K/uL [place] # (Auto) 0.83 H (0.11-0.59) K/uL Eos # (Auto) 0.13 (0.00-0.50) K/uL Baso # (Auto) 0.06 (0.00-0.20) K/uL Immature Gran # (Auto) 0.21 H (0.01-0.20) K/uL Sodium 132 L (136-145) mmol/L Potassium 3.7 (3.5-5.1) mmol/L Chloride 97 L (98-107) mmol/L Carbon Dioxide 26 (21-32) mmol/L Anion Gap 9 (3-11) BUN 75 H (6-23) mg/dl Creatinine 2.44 H (0.6-1.2) mg/dl Est Cr Clr Drug Dosing 26.5 ml/min Est GFR ( Amer) 23.6 ml/min Est GFR (Non-Af Amer) 20.4 ml/min BUN/Creatinine Ratio 30.7 H (10-20) Glucose 191 H (70-99(Fasting)) mg/dl Uric Acid 9.1 H (2.6-7.2) mg/dl Calcium 8.8 (8.6-10.3) mg/dl Total Bilirubin 0.3 (0.2-1.0) mg/dl AST 11 L (13-39) U/L ALT 5 L (7-52) U/L Alkaline Phosphatase 140 H (34-104) U/L C-Reactive Protein 17.95 H (0-0.5) mg/dl Total Protein 7.4 (6.0-8.3) gm/dl Albumin 2.5 L (3.4-5.0) gm/dl Globulin 4.9 H (2.5-4.0) gm/dl Albumin/Globulin Ratio 0.5 L (0.9-2) Urine Color Yellow Urine Appearance Turbid A (Clear) Urine pH 6.5 (4.5-7.5) Ur Specific [place] 1.018 (1.000-1.030) Urine Protein 3+ H (Negative) Urine Glucose (UA) Trace H (Negative) Urine Ketones Negative (Negative) Urine Blood 2+ H (Negative) Urine Nitrite Negative (Negative) Urine Bilirubin Negative (Negative) Urine Urobilinogen Negative (Negative) Ur Leukocyte Esterase 3+ H (Negative) Urine WBC (Auto) >50 H (0-5) /hpf Urine RBC (Auto) >20 H (0-2) /hpf U Hyaline Cast (Auto) 3-5 H (0-2) /lpf U Epithel Cells (Auto) 0-2 (0-2) /hpf Urine Bacteria (Auto) 2+ H (None Seen) Urine Yeast Present A (None Prsent) Imaging Data Attestation: I personally reviewed and interpreted this imaging study as follows: Radiologist's Impression: Chest X-Ray 12/07/23 16:16 SINGLE VIEW CHEST CLINICAL HISTORY: Generalized pain. Illness. FINDINGS: An AP, portable, upright chest radiograph is compared to study dated 07/27/2023. Correlation is made with chest CT dated 05/04/2023. The heart is enlarged and noting atherosclerotic calcification of the thoracic aorta. The mitral annulus is densely calcified. There is pulmonary vascular congestion. Atelectasis is noted at the lung bases. No airspace consolidation or large pleural effusion is identified. No pneumothorax is seen. The skeletal structures are osteopenic. The bony thorax is grossly intact. IMPRESSION: Cardiomegaly with pulmonary vascular congestion. ACT 112: Negative or not required by law. Electronically signed by: Chilango Vora M.D. 12/07/2023 4:42 PM Abdomen/Pelvis CT 12/07/23 16:19 CT SCAN OF THE ABDOMEN AND PELVIS WITHOUT IV CONTRAST CLINICAL HISTORY: Generalized abdominal pain. COMPARISON STUDY: Abdominal CT dated 01/25/2023. TECHNIQUE: CT scan of the abdomen and pelvis is performed from the lung bases to the proximal femora. Images are reviewed in the axial, sagittal, and coronal planes. IV contrast was not administered for this examination. A dose lowering technique was utilized adhering to the principles of ALARA. CT DOSE: 1387.46 mGy.cm FINDINGS: Lung bases: The heart is enlarged and without pericardial effusion. The coronary arteries and mitral annulus are densely calcified. There is diminished attenuation of the cardiac blood pool last compared to the myocardium suggesting anemia. Scarring/atelectasis is noted at the lung bases. No airspace consolidation or pleural effusion is identified. There is a small hiatal hernia. Liver: The unenhanced liver is enlarged, measuring 21.2 cm in length. Contour and attenuation are normal. There is no intrahepatic biliary ductal dilatation. Gallbladder: Unremarkable. Spleen: Normal in size and attenuation. Pancreas: The unenhanced pancreas is moderately atrophic and grossly unremarkable. Adrenal glands: Unremarkable. Kidneys: The unenhanced kidneys are normal in size and without hydronephrosis. There are renovascular calcifications. No renal calculi are identified and no ureteral stone is seen. A subcentimeter exophytic cyst arises from the left upper pole. Abdominal vasculature: The abdominal aorta is normal in course and caliber noting advanced atherosclerotic calcification. Bowel: There is mild colonic diverticulosis without CT evidence of acute diverticulitis. No bowel obstruction is seen. Liquid stool is noted throughout the colon. The appendix is normal as visualized. Peritoneum: There is no intraperitoneal free air or abdominal ascites. There is a small fat-containing umbilical hernia. Lymphadenopathy: None. Pelvic viscera: The bladder is normal as visualized. Uterine fibroids are suggested. No adnexal lesion is seen. Skeletal structures: The skeletal structures are osteopenic. Mild lumbosacral spondylosis is observed. No lytic or blastic lesions are seen. Erosive change involving the anterior/inferior endplate of L4 is new from 01/25/2023. There is no associated paravertebral edema and this is likely on a degenerative basis. IMPRESSION: 1. There is liquid stool seen throughout the colon. Correlate clinically for evidence of a diarrheal illness. 2. Erosive change at the anterior/inferior endplate of L4 is new from 01/25/2023. There is no associated paravertebral edema and this is likely degenerative. Clinical correlation will be essential. If there is strong concern for discitis/osteomyelitis an MRI should be obtained. 3. Hepatomegaly. 4. Cardiomegaly. 5. Additional findings above. ACT 112: Negative or not required by law. Electronically signed by: Chilango Vora M.D. 12/07/2023 5:06 PM Venous Doppler Study 12/07/23 16:28 US venous doppler LE RT CLINICAL HISTORY: right leg pain, swelling TECHNIQUE: Right lower extremity real-time compression venous ultrasound with Color Doppler imaging. Utilizing real-time ultrasonic imaging multiple real time high-resolution ultrasonic images with compression and noncompression maneuvers of the deep venous system in addition to color doppler imaging were performed from the common femoral vein through the proximal calf veins. COMPARISON: None available at the time of this dictation. FINDINGS/IMPRESSION: No deep venous thrombus, there is normal compressibility of the deep venous system from the common femoral vein through the proximal calf veins. Soft tissue edema is seen at the point of interest in the medial right thigh. ACT 112: Negative or not required by law. Electronically signed by: Juan Ramon Bejarano M.D. 12/07/2023 5:57 PM MDM Narrative This patient is a 63-year-old female who presents to the emergency department for evaluation of generalized pain and not feeling well. Patient is an poor health at baseline and currently resides at a rehab facility. She has a cellulitis on the right upper leg. Patient is not sure how long this has been present but states it has been worsening. She does have a sacral pressure wound which has been present for some time and a wound of the right heel which is healing well. Patient also found to have a UTI based on urinalysis here. Given the new UTI and worsening cellulitis on antibiotics I do feel she requires admission. A CT of the abdomen/pelvis performed due to her complaint of abdominal pain and shows evidence of diarrheal illness as well as some erosive changes of L4. I suspect this is degenerative. Patient was given a dose of daptomycin to cover for the UTI and cellulitis. She is currently on oral vancomycin, cefdinir and doxycycline as an outpatient. She was given a dose of morphine for pain. Case was discussed with the [facility] service, who agreed to evaluate the patient for further care. Discharge Plan Visit Data Chief Complaint: Foot Injury/Pain ED Provider: Lily Kerr ED Midlevel Provider: Eleanor Macdonald Patient Disposition: Admitted As Inpatient Discharge Instructions Interventions: ED Discharge Assessment Last Done: 12/07/23 23:13
[2023-12-07] MEDS: MoRPHine SULFATE 2 MG/ML CARP ONE (16:33)
[2023-12-07] MEDS: MoRPHine SULFATE 4 MG/ML 1 ML CARP\\VIAL ONE (16:33)
[2023-12-07] MEDS: MoRPHine SULFATE 10 MG/ML CARP/VIAL IV STA (16:33)
--- NOTE | 2023-12-07 16:45 | XRay Report ---
SINGLE VIEW CHEST CLINICAL HISTORY: Generalized pain. Illness. FINDINGS: An AP, portable, upright chest radiograph is compared to study dated 07/27/2023. Correlation is made with chest CT dated 05/04/2023. The heart is enlarged and noting atherosclerotic calcificatio n of the thoracic aorta. The mitral annulus is densely calcified. There is pulmonary vascular congest ion. Atelectasis is noted at the lung bases. No airspace consolidation or large pleural effusion is i dentified. No pneumothorax is seen. The skeletal structures are osteopenic. The bony thorax is grossl y intact. IMPRESSION: Cardiomegaly with pulmonary vascular congestion. ACT 112: Negative or not required by law. Electronically signed by: Chilango Vora M.D. 12/07/2023 4:42 PM
[2023-12-07 16:56] LABS: Basophils # (auto) 0.06 K/uL (0.00-0.20); Basophils % (auto) 0.4 %; Eosinophils # (auto) 0.13 K/uL (0.00-0.50); Hematocrit (blood only) 28.9 % (37.0-47.0); Hemoglobin 9.3 g/dl (12.0-16.0); Immature Granulocytes # (auto) 0.21 K/uL (0.01-0.20); Immature Granulocytes % (auto) 1.6 %; Lymphocytes # (auto) 2.07 K/uL (1.20-3.40); Lymphocytes % (auto) 15.4 %; Mean Corpuscular Hgb Conc 32.2 g/dL (32.0-36.0); Monocytes # (auto) 0.83 K/uL (0.11-0.59); Monocytes % (auto) 6.2 %; Neutrophils % (auto) 75.4 %; Platelet Count 551 K/uL (130-400); RDW Coefficient of Variation 14.7 % (11.5-14.5); RDW Standard Deviation 45.1 fL (36.4-46.3); Red Blood Count 3.44 M/uL (4.20-5.40)
--- NOTE | 2023-12-07 17:07 | CT Scan Report ---
CT SCAN OF THE ABDOMEN AND PELVIS WITHOUT IV CONTRAST CLINICAL HISTORY: Generalized abdominal pain. COMPARISON STUDY: Abdominal CT dated 01/25/2023. TECHNIQUE: CT scan of the abdomen and pelvis is performed from the lung bases to the proximal femora. Images are reviewed in the axial, sagittal, and coronal planes. IV contrast was not administered for this examination. A dose lowering technique was utilized adhering to the principles of ALARA. CT DOSE: 1387.46 mGy.cm FINDINGS: Lung bases: The heart is enlarged and without pericardial effusion. The coronary arteries and mitral annulus are densely calcified. There is diminished attenuation of the cardiac blood pool last compare d to the myocardium suggesting anemia. Scarring/atelectasis is noted at the lung bases. No airspace c onsolidation or pleural effusion is identified. There is a small hiatal hernia. Liver: The unenhanced liver is enlarged, measuring 21.2 cm in length. Contour and attenuation are nor mal. There is no intrahepatic biliary ductal dilatation. Gallbladder: Unremarkable. Spleen: Normal in size and attenuation. Pancreas: The unenhanced pancreas is moderately atrophic and grossly unremarkable. Adrenal glands: Unremarkable. Kidneys: The unenhanced kidneys are normal in size and without hydronephrosis. There are renovascular calcifications. No renal calculi are identified and no ureteral stone is seen. A subcentimeter exoph ytic cyst arises from the left upper pole. Abdominal vasculature: The abdominal aorta is normal in course and caliber noting advanced atheroscle rotic calcification. Bowel: There is mild colonic diverticulosis without CT evidence of acute diverticulitis. No bowel obs truction is seen. Liquid stool is noted throughout the colon. The appendix is normal as visualized. Peritoneum: There is no intraperitoneal free air or abdominal ascites. There is a small fat-containin g umbilical hernia. Lymphadenopathy: None. Pelvic viscera: The bladder is normal as visualized. Uterine fibroids are suggested. No adnexal lesio n is seen. Skeletal structures: The skeletal structures are osteopenic. Mild lumbosacral spondylosis is observed . No lytic or blastic lesions are seen. Erosive change involving the anterior/inferior endplate of L4 is new from 01/25/2023. There is no associated paravertebral edema and this is likely on a degenerat michael basis. IMPRESSION: 1. There is liquid stool seen throughout the colon. Correlate clinically for evidence of a diarrheal illness. 2. Erosive change at the anterior/inferior endplate of L4 is new from 01/25/2023. There is no associa zain paravertebral edema and this is likely degenerative. Clinical correlation will be essential. If t here is strong concern for discitis/osteomyelitis an MRI should be obtained. 3. Hepatomegaly. 4. Cardiomegaly. 5. Additional findings above. ACT 112: Negative or not required by law. Electronically signed by: Chilango Vora M.D. 12/07/2023 5:06 PM
[2023-12-07 17:11] LABS: Albumin Globulin Ratio 0.5 (0.9-2); Albumin Level 2.5 gm/dl (3.4-5.0); BUN Creatinine Ratio 30.7 (10-20); Bilirubin,Total 0.3 mg/dl (0.2-1.0); Calcium 8.8 mg/dl (8.6-10.3); Creatinine Clr Calc Pharmacy 26.5 ml/min; Est GFR (African American) 23.6 ml/min; Est GFR (Non-African American) 20.4 ml/min; Globulin 4.9 gm/dl (2.5-4.0); Potassium 3.7 mmol/L (3.5-5.1); Total Protein 7.4 gm/dl (6.0-8.3)
[2023-12-07 17:44] LABS: Appearance Urine Turbid (Clear); Bacteria Urine Automated 2+ (None Seen); Bilirubin Urine Negative (Negative); Blood Urine 2+ (Negative); Color Urine Yellow; Epithelial Cell Urine Auto 0-2 /hpf (0-2); Glucose Urine UA Trace (Negative); Ketones Urine Negative (Negative); Leukocyte Esterase Urine 3+ (Negative); Nitrite Urine Negative (Negative); Protein Urine 3+ (Negative); RBC Urine Automated >20 /hpf (0-2); Specific Gravity Urine 1.018 (1.000-1.030); Urobilinogen Urine Negative (Negative); WBC Urine Automated >50 /hpf (0-5); pH Urine 6.5 (4.5-7.5)
--- NOTE | 2023-12-07 17:59 | Ultrasound Report ---
US venous doppler LE RT CLINICAL HISTORY: right leg pain, swelling TECHNIQUE: Right lower extremity real-time compression venous ultrasound with Color Doppler imaging. Utilizing real-time ultrasonic imaging multiple real time high-resolution ultrasonic images with comp ression and noncompression maneuvers of the deep venous system in addition to color doppler imaging w ere performed from the common femoral vein through the proximal calf veins. COMPARISON: None available at the time of this dictation. FINDINGS/IMPRESSION: No deep venous thrombus, there is normal compressibility of the deep venous system from the common fe moral vein through the proximal calf veins. Soft tissue edema is seen at the point of interest in th e medial right thigh. ACT 112: Negative or not required by law. Electronically signed by: Juan Ramon Bejarano M.D. 12/07/2023 5:57 PM
--- NOTE | 2023-12-07 18:44 | History & Physical Report ---
Date of Service December 07, 2023 Assessment & Plan (1) Cellulitis: Plan: Patient [facility] from [facility] for right medial thigh pain on 12/06 Right medial thigh is erythematous with significant induration and eschar (see photo in physical exam) Occurred by when transferring over on gurney; ?"Pinch" injury Leukocytosis at 13.40 with neutrophil dominance; afebrile CRP ordered, pending Given considerable bruising and eschar, will obtain MRI right femur without contrast to rule out abscess MRSA swab ordered, pending Daptomycin IV q24h; hold statin Metronidazole IV q8h Cefepime IV q8h Discussed with patient and she is amenable to trial of cefepime despite PCN allergy Patient also tolerated cefepime during admission in July 2023 Acetaminophen and Dilaudid as needed for pain General surgery consulted for potential debridement A.m. CBC, CMP, CRP, A1c (2) Acute kidney injury superimposed on chronic kidney disease: Plan: BUN 75, creatinine 2.44 (baseline around 1.9), EGFR 20.4 on arrival Avoid nephrotoxic agents for possible Hold lisinopril IVF with LR at 125mL/hr x 2 L Trend BMP (3) Uncontrolled diabetes mellitus with hyperglycemia, with long-term current use of insulin: Plan: Last A1c at 7.9% on 05/04/2023 Glucose 191 on admission Patient normally on Lantus 10u QAM Will dose reduce to Lantus 5u QAM in the setting of PERLITA SSI; with target BSG range 110-140mg/dL, CF 25, carb ratio 10 T2DM diet BSG ACHS Adjust regimen as needed AM A1c (4) C. difficile colitis: Plan: Unclear if patient is currently receiving vancomycin based on initial paperwork Repeat C. Diff ordered/pending Contact isolation precautions Vancomycin p.o. QID (5) UTI (urinary tract infection): Plan: Burning with urination x 2 days UCx on 05/07/23 grew pansensitive Proteus mirabilis IVF (as above) Antibiotics (as above) (6) Pressure ulcer: Plan: Wound care nurse consult appreciated Daily wound care (7) Diabetic ulcer of right heel: Plan: Wound culture on 07/28/2023 grew Pseudomonas Wound culture on 01/04/2023 grew MSSA susceptible to daptomycin Daily wound care (8) Anemia: Plan: Chronic; Hgb 9.3 on arrival No signs of active bleeding on clinical exam Trend CBC (9) (HFpEF) heart failure with preserved ejection fraction: Plan: Last echocardiogram on 03/19/2023 revealed LVH of 65-70% Daily weights Strict I&O monitoring Hold Bumex in the setting of PERLITA (10) History of osteomyelitis: Plan: A/P CT revealed erosive changes of L4 Will obtain lumbar spine MRI without contrast to assess for discitis/osteomyelitis Uric acid level ordered to assess for gout Plan Disposition: Admit to PCU telemetry DNR/DNI Heart healthy, T2DM diet VTE PPx: Heparin 5000u SQ q12h History of Present Illness Chief Complaint: Medial right thigh/abdominal/lower back pain Primary Care Provider: Natali Langston DO Vincent is a 63-year-old female with PMH of uncontrolled T2DM, hypothyroidism, GERD, metabolic syndrome, HLD, CKD stage III, fibromyalgia, anxiety, depression, vertigo, and HFpEF. She presented on 12/06 from [facility] for generalized abdominal pain, and right lower thigh pain. She rates the pain in her right medial thigh 10 at present, and characterizes it as a constant "pinching" pain. She has been taking IV morphine at her rehab center for the pain, which she needs every few hours, and reports that this does help with the pain. Pain is exacerbated by movements and eating. No history of cellulitis to her knowledge. She does have a history of a right foot ulcer for which she sees wound care. She is also having pain in her lower back and tailbone due to a known pressure ulcer, however she describes this as a "itching" pain. She is having liquidy diarrhea 3 times per day, and receiving treatment for C. difficile infection. Also reports that she started having burning with urination 2 days ago. Patient took her regular morning medications today; only recent change was that her amitriptyline dosage was increased. She reports that her penicillin allergy is fairly severe; no anaphylaxis, but significant hives. Patient is hypertensive at 154/76 at time of admission. ED course: Daptomycin 275 mg IV Morphine sulfate 6 mg IV ROS: Patient endorses dizziness, lightheadedness (resolved), chest tightness (which patient attributes to morphine administration), lower transverse abdominal pain, right medial thigh pain, lower back pain, nausea, vomiting, liquidy diarrhea, and burning with urination. Patient denies fever, chills, night sweats, headache, chest pain, chest palpitations, SOB, coughing, or blood in the urine or stool. Please see Dr. Pond's attestation for any changes to treatment plan overnight. Allergies Allergy/AdvReac Type Severity Reaction Status Date / Time amoxicillin Allergy Intermediate hives Verified 12/07/23 21:03 dextromethorphan Allergy Intermediate Hives Verified 12/07/23 21:03 [From NyQuil] doxylamine [From NyQuil] Allergy Intermediate Hives Verified 12/07/23 21:03 gluten Allergy Intermediate Hives Verified 12/07/23 21:03 latex Allergy Intermediate RASH Verified 12/07/23 21:03 Sulfa (Sulfonamide Allergy Intermediate RASH Verified 12/07/23 21:03 Antibiotics) clarithromycin AdvReac Intermediate HEART RACES Verified 12/07/23 21:03 Yolandashane's multigrain bread Allergy Intermediate Hives Uncoded 12/07/23 18:28 Home Medications Medication Instructions Recorded Confirmed Type fluticasone propionate 50 50 mcg intranasal QAM 03/10/19 12/07/23 History mcg/actuation nasal spray,suspension (Flonase Allergy Relief) levothyroxine 175 mcg tablet 175 mcg PO QAM 03/10/19 12/07/23 History (Synthroid) loratadine 10 mg tablet 5 mg PO DAILY PRN Allergy Symptoms 01/19/21 12/07/23 History pen needle, diabetic 32 gauge x 06/20/21 05/03/23 History 5/32" (BD Ultra-Fine Siria Pen Needle) blood sugar diagnostic (FreeStyle 06/29/21 05/03/23 History Precision Perico Strips) flash glucose scanning reader 06/29/21 05/03/23 History (FreeStyle Davy 14 Day [place]) flash glucose sensor (FreeStyle 06/29/21 05/03/23 History Davy 14 Day Sensor kit) lancets 30 gauge (OneTouch Delica 06/29/21 05/03/23 History Lancets) cholecalciferol (vitamin D3) 50 50 mcg PO QAM 02/09/22 12/07/23 History mcg (2,000 unit) capsule (Vitamin D3) albuterol sulfate 90 mcg/actuation 2 puff inhalation QID PRN wheezing 03/19/23 12/07/23 History aerosol inhaler (Proventil HFA) acetaminophen 325 mg tablet 650 mg (2 x 325 mg) PO Q4H PRN 04/12/23 12/07/23 Rx pain #30 tabs insulin aspart U-100 100 unit/mL 20 unit subcut TIDWMEAL 04/13/23 12/07/23 History subcutaneous solution (Novolog U-100 Insulin aspart) insulin detemir U-100 100 unit/mL 0 unit subcut BID 07/27/23 12/07/23 History (3 mL) subcutaneous pen (Levemir FlexPen) simvastatin 40 mg tablet 40 mg PO HS 07/27/23 12/07/23 History diclofenac sodium 1 % topical gel 2 g EXT QID #100 grams 08/13/23 12/07/23 Rx (Voltaren Arthritis Pain) amitriptyline 100 mg tablet 0 mg PO HS Did Not Take/Research [employer] Development Tester Med 12/07/23 12/07/23 History amitriptyline 25 mg tablet 25 mg PO DAILY 12/07/23 12/07/23 History bumetanide 1 mg tablet 2 mg PO QAM 12/07/23 12/07/23 History collagenase clostridium histo. 250 250 unit topical 2XD 12/07/23 12/07/23 History unit/gram topical ointment (Santyl) cyanocobalamin (vitamin B-12) 1,000 mcg PO DAILY 12/07/23 12/07/23 History 1,000 mcg tablet (Vitamin B-12) ferrous sulfate 325 mg (65 mg 325 mg PO DAILY 12/07/23 12/07/23 History iron) tablet (Iron (ferrous sulfate)) insulin glargine 100 unit/mL 10 unit subcut DAILY 12/07/23 12/07/23 History subcutaneous solution (Lantus U-100 Insulin) lisinopril 20 mg tablet 20 mg PO DAILY 12/07/23 12/07/23 History pantoprazole 40 mg tablet,delayed 40 mg PO DAILY 12/07/23 12/07/23 History release (Protonix) vancomycin 125 mg capsule 125 mg PO Q6 12/07/23 12/07/23 History Past Med/Surg History Problem List UTI (urinary tract infection) C. difficile colitis History of osteomyelitis Cellulitis Pressure ulcer Acute kidney injury superimposed on chronic kidney disease Shoulder pain, right Acute osteomyelitis of right calcaneus Ambulatory dysfunction (Acute) Left hip pain (Acute) Pain in right knee (Acute) Anemia (Acute) Weakness (Acute) CKD (chronic kidney disease) stage 4, GFR 15-29 ml/min Anemia (Acute) Ambulatory dysfunction (Acute) Symptomatic anemia (Acute) Acute dyspnea (Acute) Diabetic foot ulcer (Acute) Junctional rhythm Morbid obesity with BMI of 60.0-69.9, adult Asthma COLD WEATHER FLARES UP/DENIES RECENT FLARE UP/ALBUTEROL ONLY PRN (HFpEF) heart failure with preserved ejection fraction SOB (shortness of breath) Leukocytosis Diabetic foot ulcer Left arm pain Elevated troponin Uncontrolled diabetes mellitus with hyperglycemia, with long-term current use of insulin Acute metabolic encephalopathy Acute onset of severe vertigo Dysphagia Diabetic ulcer of right heel (Acute) Colon cancer screening Encounter for pre-operative examination Hypertension (Chronic) Hypercholesteremia (Chronic) Anxiety (Chronic) Heart block (Chronic) Migraine LAST ONE JANUARY 2017 ( WAS JOB RELATED) Hypothyroidism (Chronic) Diverticular disease Family hx of colon cancer MOTHER - HAD OBSTRUCTIVE BOWEL CANCER Fibromyalgia Uses prosthesis Early awakening Proteinuria (Chronic) Anemia Chronic kidney disease, stage III (moderate) (Chronic) Uncontrolled type 2 diabetes mellitus with hyperglycemia (Chronic) Metabolic syndrome Obesity Mixed hyperlipidemia Dietary counseling and surveillance Vitamin D deficiency Hypomagnesemia Peritonsillar abscess (Acute) Acute hyperglycemia (Acute) Failure of outpatient treatment (Acute) PERLITA (acute kidney injury) Morbid obesity with BMI of 50.0-59.9, adult Peritonsillar abscess recent admission @ [facility] 01/29/22 for this--per pt has finished all antibiotics for this, no further issues at this time Hypothyroidism GERD (gastroesophageal reflux disease) Osteoarthritis Depression Medical History Hyponatremia Ulcer of right heel Fall Pseudomonas infection History of anesthesia reaction woke up during shoulder arthroscopy RBBB Hypoxia Hyperglycemia due to type 2 diabetes mellitus Pneumonia due to COVID-19 virus COVID-19 hx of in 2019--per pt was hospitalized for COVID--states no symptoms currently Bifascicular block Foot drop LEFT Chronic back pain Hx of irritable bowel syndrome Cataract Bilateral Umbilical hernia Hiatal hernia PTSD (post-traumatic stress disorder) History of diverticulitis Tear of medial meniscus of right knee, current Diabetes mellitus with hyperglycemia, with long-term current use of insulin Neck pain Narrowing of C6-C7 with bone spurs. CAUSES NUMBNESS IN LEFT ARM Anxiety Hyperlipidemia Hypertension History of migraine Hyperosmolar hyponatremia Fibromyalgia Surgical History History of repair of right rotator cuff History of repair of left rotator cuff History of repair of ACL L S/P rotator cuff repair History of arthroscopy of right shoulder History of dilatation and curettage History of repair of ACL R History of esophagogastroduodenoscopy (EGD) History of colonoscopy History of D&C Family History Grandfather Diabetes Mother Myocardial infarction Heart disease Tobacco abuse Hx of CABG Family/Other Family history of diabetes mellitus Brother Family history of diabetes mellitus Father Aortic aneurysm Grandmother (Paternal) Cerebral aneurysm Stroke Other Family history of colon cancer in mother Social History Smoking Status: Never smoker Second Hand Exposure: No; Do You Dip or Chew Tobacco: No; Tobacco Cessation Education Requested by Patient: No Hx Alcohol Use: No Hx Substance Use: No Preferred Language: Telugu Communication Ability: Effective Visual Impairment: No Limitations Landscape Engineer Required: No Beliefs That Will Affect Care: None marital status: Current Living Situation: Rehab Other Information That Helps Us Care for You: No Feels Safe at Home: Yes Safety Concerns: Feels Safe At This Time Assistive Devices: Glasses, Oxygen - at Night, Walker and Wheelchair Review of Systems 2 Review of Systems: See HPI above Physical Exam 2 Physical Exam: General: Moderate physical distress secondary to medial thigh pain; non-toxic appearing; cooperative; SpO2 97% on RA HEENT: normocephalic, atraumatic; no scleral icterus; PERRLA; vision and hearing grossly intact Neck: supple; no lymphadenopathy; trachea midline Skin: warm, dry; medial right thigh is edematous, erythematous, with notable eschar (see photo below) CV: chest wall NTP; RRR; S1/S2 normal; no murmurs/rubs/gallops; pulses intact and symmetric at radial, DP, and PT Lungs: no acute respiratory distress; symmetrical chest wall expansion; clear breath sounds across all lung doss w/o adventitious sounds; no wheezing ABD: Soft, upper quadrants are NTP, lower quadrants are TTP bilaterally; BS present; no rebound/guarding; moderate distention secondary to body habitus; positive suprapubic tenderness MSK: no tics or fasciculations; nonpitting edema in the lower extremities bilaterally Back: Sacral ulcer with purulent drainage (see photo below) Right ankle: Healing ulcer on the sole of the right foot (see photo below; no drainage) Neuro: A&Ox3; normal mood and affect; fluent speech; no focal deficits; sensation grossly intact in the LEs b/l Results & Data Results & Data Vital Signs (Past 12 Hours) Vital Signs Temp Pulse Pulse Resp BP BP Pulse Ox 12/07/23 17:00 87 18 154/76 H 97 12/07/23 16:17 80 18 97 12/07/23 14:14 18 12/07/23 14:14 37.5 C 91 H 18 153/79 H 100 O2 Del Method 12/07/23 17:00 Room Air 12/07/23 16:17 Room Air 12/07/23 14:14 12/07/23 14:14 Room Air Laboratory Results Abnormal lab results 12/07/23 12/07/23 Range/Units 16:35 17:22 WBC 13.40 H (4.8-10.8) K/ul RBC 3.44 L (4.20-5.40) M/uL Hgb 9.3 L (12.0-16.0) g/dl Hct 28.9 L (37.0-47.0) % RDW Coeff of Sylvia 14.7 H (11.5-14.5) % Plt Count 551 H (130-400) K/uL Neut # (Auto) 10.10 H (1.40-6.50) K/uL Rooks # (Auto) 0.83 H (0.11-0.59) K/uL Immature Gran # (Auto) 0.21 H (0.01-0.20) K/uL Sodium 132 L (136-145) mmol/L Chloride 97 L (98-107) mmol/L BUN 75 H (6-23) mg/dl Creatinine 2.44 H (0.6-1.2) mg/dl BUN/Creatinine Ratio 30.7 H (10-20) Glucose 191 H (70-99(Fasting)) mg/dl AST 11 L (13-39) U/L ALT 5 L (7-52) U/L Alkaline Phosphatase 140 H (34-104) U/L Albumin 2.5 L (3.4-5.0) gm/dl Globulin 4.9 H (2.5-4.0) gm/dl Albumin/Globulin Ratio 0.5 L (0.9-2) Urine Appearance Turbid A (Clear) Urine Protein 3+ H (Negative) Urine Glucose (UA) Trace H (Negative) Urine Blood 2+ H (Negative) Ur Leukocyte Esterase 3+ H (Negative) Urine WBC (Auto) >50 H (0-5) /hpf Urine RBC (Auto) >20 H (0-2) /hpf U Hyaline Cast (Auto) 3-5 H (0-2) /lpf Urine Bacteria (Auto) 2+ H (None Seen) Urine Yeast Present A (None Prsent) Diagnostic Findings Chest X-Ray 12/07/23 16:16 SINGLE VIEW CHEST CLINICAL HISTORY: Generalized pain. Illness. FINDINGS: An AP, portable, upright chest radiograph is compared to study dated 07/27/2023. Correlation is made with chest CT dated 05/04/2023. The heart is enlarged and noting atherosclerotic calcification of the thoracic aorta. The mitral annulus is densely calcified. There is pulmonary vascular congestion. Atelectasis is noted at the lung bases. No airspace consolidation or large pleural effusion is identified. No pneumothorax is seen. The skeletal structures are osteopenic. The bony thorax is grossly intact. IMPRESSION: Cardiomegaly with pulmonary vascular congestion. ACT 112: Negative or not required by law. Electronically signed by: Chilango Vora M.D. 12/07/2023 4:42 PM Abdomen/Pelvis CT 12/07/23 16:19 CT SCAN OF THE ABDOMEN AND PELVIS WITHOUT IV CONTRAST CLINICAL HISTORY: Generalized abdominal pain. COMPARISON STUDY: Abdominal CT dated 01/25/2023. TECHNIQUE: CT scan of the abdomen and pelvis is performed from the lung bases to the proximal femora. Images are reviewed in the axial, sagittal, and coronal planes. IV contrast was not administered for this examination. A dose lowering technique was utilized adhering to the principles of ALARA. CT DOSE: 1387.46 mGy.cm FINDINGS: Lung bases: The heart is enlarged and without pericardial effusion. The coronary arteries and mitral annulus are densely calcified. There is diminished attenuation of the cardiac blood pool last compared to the myocardium suggesting anemia. Scarring/atelectasis is noted at the lung bases. No airspace consolidation or pleural effusion is identified. There is a small hiatal hernia. Liver: The unenhanced liver is enlarged, measuring 21.2 cm in length. Contour and attenuation are normal. There is no intrahepatic biliary ductal dilatation. Gallbladder: Unremarkable. Spleen: Normal in size and attenuation. Pancreas: The unenhanced pancreas is moderately atrophic and grossly unremarkable. Adrenal glands: Unremarkable. Kidneys: The unenhanced kidneys are normal in size and without hydronephrosis. There are renovascular calcifications. No renal calculi are identified and no ureteral stone is seen. A subcentimeter exophytic cyst arises from the left upper pole. Abdominal vasculature: The abdominal aorta is normal in course and caliber noting advanced atherosclerotic calcification. Bowel: There is mild colonic diverticulosis without CT evidence of acute diverticulitis. No bowel obstruction is seen. Liquid stool is noted throughout the colon. The appendix is normal as visualized. Peritoneum: There is no intraperitoneal free air or abdominal ascites. There is a small fat-containing umbilical hernia. Lymphadenopathy: None. Pelvic viscera: The bladder is normal as visualized. Uterine fibroids are suggested. No adnexal lesion is seen. Skeletal structures: The skeletal structures are osteopenic. Mild lumbosacral spondylosis is observed. No lytic or blastic lesions are seen. Erosive change involving the anterior/inferior endplate of L4 is new from 01/25/2023. There is no associated paravertebral edema and this is likely on a degenerative basis. IMPRESSION: 1. There is liquid stool seen throughout the colon. Correlate clinically for evidence of a diarrheal illness. 2. Erosive change at the anterior/inferior endplate of L4 is new from 01/25/2023. There is no associated paravertebral edema and this is likely degenerative. Clinical correlation will be essential. If there is strong concern for discitis/osteomyelitis an MRI should be obtained. 3. Hepatomegaly. 4. Cardiomegaly. 5. Additional findings above. ACT 112: Negative or not required by law. Electronically signed by: Chilango Vora M.D. 12/07/2023 5:06 PM Venous Doppler Study 12/07/23 16:28 US venous doppler LE RT CLINICAL HISTORY: right leg pain, swelling TECHNIQUE: Right lower extremity real-time compression venous ultrasound with Color Doppler imaging. Utilizing real-time ultrasonic imaging multiple real time high-resolution ultrasonic images with compression and noncompression maneuvers of the deep venous system in addition to color doppler imaging were performed from the common femoral vein through the proximal calf veins. COMPARISON: None available at the time of this dictation. FINDINGS/IMPRESSION: No deep venous thrombus, there is normal compressibility of the deep venous system from the common femoral vein through the proximal calf veins. Soft tissue edema is seen at the point of interest in the medial right thigh. ACT 112: Negative or not required by law. Electronically signed by: Juan Ramon Bejarano M.D. 12/07/2023 5:57 PM Code Status & VTE Plan Code Status DNR/DNI VTE Prophylaxis Plan VTE Prophylaxis will be ordered: Yes Supervising Physician Co-Signing Physician Notes Attending addendum: I have physically seen this patient, have supervised the MARCELL's activities, and agree with the H&P unless as otherwise noted. Assessment and Plan: Right medial thigh cellulitis- Circular areas of eschar with surrounding induration and erythema She reports that this initially began after her leg was pinched moving off of the gurney a while ago Venous Doppler right lower extremity is negative Empiric daptomycin IV Cefepime 2 g IV every 8 hours Metronidazole I would milligrams IV every 8 hours Consult general surgery Serial CBC with differential, chemistry profile and magnesium level Right heel diabetic ulcer- Wound culture from 07/28/2023 grew Pseudomonas aeruginosa Culture from 01/04/2023 grew MSSA Antibiotics as above Urinary tract infection Follow urine culture and sensitivity Most recent culture 05/07/2023 with Proteus mirabilis pansensitive Diabetes mellitus- Glucose 191 on admission Likely aggravated by Lantus and coverage insulin as noted Check hemoglobin A1c in the a.m. C. difficile colitis- History of, and presently reports loose stools C. difficile testing pending Empiric treatment vancomycin 25 mg p.o. 4 times daily due to concurrent use of antibiotics for above L4 erosive changes- As noted on CT of abdomen pelvis, new compared to 01/25/2023 Order MRI to further assess for possible discitis versus osteomyelitis Acute kidney injury superimposed on CKD- Creatinine 2.44, base 2.02 For now hold Bumex PG Care Time/CCT Total # of Minutes Spent Total Time Spent with Patient: Total time spent is greater than 50% in coordination of care (as documented) at patient's floor/unit and/or counseling patient: Coding [place] [id number] INT INP/OBS CARE 3/75MIN Patient Type Established Medical Decision Making High Complexity Diagnoses Cellulitis L03.90 Acute kidney injury superimposed on chronic kidney disease N17.9; N18.9 Uncontrolled diabetes mellitus with hyperglycemia, with long-term current use of insulin E11.65; Z79.4 C. difficile colitis A04.72 UTI (urinary tract infection) N39.0 Pressure ulcer L89.90 Diabetic ulcer of right heel associated with type 2 diabetes mellitus, with fat layer exposed E11.621; L97.412 Diabetes mellitus type: type 2 Non-pressure ulcer stage: with fat layer exposed Anemia D64.9 Anemia type: unspecified type (HFpEF) heart failure with preserved ejection fraction I50.30 History of osteomyelitis Z87.39 (7) Diabetic ulcer of right heel Diabetes mellitus type: type 2 Non-pressure ulcer stage: with fat layer exposed Qualified Code(s): E11.621 - Type 2 diabetes mellitus with foot ulcer; L97.412 - Non-pressure chronic ulcer of right heel and midfoot with fat layer exposed (8) Anemia Anemia type: unspecified type Qualified Code(s): D64.9 - Anemia, unspecified
[2023-12-07] MEDS: DAPTOmycin 275 MG in SYRINGE 0 ML IV SCH (19:40)
[2023-12-07 20:37] LABS: Uric Acid 9.1 mg/dl (2.6-7.2)
[2023-12-07] MEDS: CEFEPIME 20 ML IV STA (21:32)
[2023-12-07] MEDS: metroNIDAZOLE 500 MG/100 ML BAG IV STA (21:35)
[2023-12-07] MEDS: LACTATED RINGER'S 1,000 ML IV SCH (21:38)
--- NOTE | 2023-12-07 21:57 | Surgery Consultation ---
Date of Consultation December 07, 2023 Assessment & Plan (1) Cellulitis: Patient has been admitted on the hospitalist service. From a general surgery perspective we recommend the following: Continue treatment of patient's C. difficile and treatment of urinary tract infection as directed by the primary service The patient is receiving broad-spectrum antibiotics The primary service has ordered an MRI of the spine to evaluate for possible discitis and have also ordered an MRI of the right thigh for further evaluation of the right thigh wound. We await the result of this study to determine if there is any fluid collection/possible abscess and then determination be made if incision and drainage will be required At the present time the patient is nontoxic-appearingthat she is normotensive without tachycardia or fever Supervising Physician Co-Signing Physician Notes This case has been discussed with the surgical PA. I agreed with the plan. History of Present Illness Reason for Consultation: Right thigh wound History of Present Illness This is a 63-year-old female who presented to the emergency department about any medical secondary to right thigh pain. Patient says that she was recently hospitalized at [facility] [address] where she was treated with C. difficile. She notes that when she was being transferred from 1 [facility] to another she feels as though she may have had an injury to her right thigh. She now notes that she has a pinching/throbbing pain in the right thigh. She denies any fevers, shakes, or chills. She is unsure if there is any drainage from the area in question of her right thigh. She does note concerning her C. difficile she continues to have some liquid diarrhea several times per day. In addition she reports some dysuria. Since arrival to the hospital patient has had labs and imaging which I independently reviewed. Chest x-ray showed pulmonary vascular congestion with some cardiomegaly. A CT scan abdomen pelvis that showed liquid stool throughout the colon concerning for diarrheal illness. There is some concern for erosive change at the anterior endplate of L4 without paravertebral edema. A lower extremity venous ultrasound of the right lower extremity showed no evidence of DVT. There is soft tissue edema in the medial right thigh. Labs included CBC her white blood cell count was elevated 13.4. Hemoglobin and hematocrit are 9.3 and 28.9. Platelet count is 551,000. Chemistry profile showed sodium is 132 with a normal potassium. BUN and creatinine were 75 and 2.4. (Patient's baseline creatinine upon review of records runs from 1.8-2.3). Urinalysis was negative for nitrites but had pyuria with greater than 50 white blood cells per high-power field as well as bacteria and yeast present. There is also 3+ leukocyte Estrace. At the time my interview she was resting comfortably bed she was no distress. Allergies Allergy/AdvReac Type Severity Reaction Status Date / Time amoxicillin Allergy Intermediate hives Verified 12/07/23 21:03 dextromethorphan Allergy Intermediate Hives Verified 12/07/23 21:03 [From NyQuil] doxylamine [From NyQuil] Allergy Intermediate Hives Verified 12/07/23 21:03 gluten Allergy Intermediate Hives Verified 12/07/23 21:03 latex Allergy Intermediate RASH Verified 12/07/23 21:03 Sulfa (Sulfonamide Allergy Intermediate RASH Verified 12/07/23 21:03 Antibiotics) clarithromycin AdvReac Intermediate HEART RACES Verified 12/07/23 21:03 Umesh's multigrain bread Allergy Intermediate Hives Uncoded 12/07/23 18:28 Home Medications Medication Instructions Recorded Confirmed Type fluticasone propionate 50 50 mcg intranasal QAM 03/10/19 12/07/23 History mcg/actuation nasal spray,suspension (Flonase Allergy Relief) levothyroxine 175 mcg tablet 175 mcg PO QAM 03/10/19 12/07/23 History (Synthroid) loratadine 10 mg tablet 5 mg PO DAILY PRN Allergy Symptoms 01/19/21 12/07/23 History pen needle, diabetic 32 gauge x 06/20/21 05/03/23 History 5/32" (BD Ultra-Fine Siria Pen Needle) blood sugar diagnostic (FreeStyle 06/29/21 05/03/23 History Precision Perico Strips) flash glucose scanning reader 06/29/21 05/03/23 History (FreeStyle Davy 14 Day [place]) flash glucose sensor (FreeStyle 06/29/21 05/03/23 History Davy 14 Day Sensor kit) lancets 30 gauge (OneTouch Delica 06/29/21 05/03/23 History Lancets) cholecalciferol (vitamin D3) 50 50 mcg PO QAM 02/09/22 12/07/23 History mcg (2,000 unit) capsule (Vitamin D3) albuterol sulfate 90 mcg/actuation 2 puff inhalation QID PRN wheezing 03/19/23 12/07/23 History aerosol inhaler (Proventil HFA) acetaminophen 325 mg tablet 650 mg (2 x 325 mg) PO Q4H PRN 04/12/23 12/07/23 Rx pain #30 tabs insulin aspart U-100 100 unit/mL 20 unit subcut TIDWMEAL 04/13/23 12/07/23 History subcutaneous solution (Novolog U-100 Insulin aspart) insulin detemir U-100 100 unit/mL 0 unit subcut BID 07/27/23 12/07/23 History (3 mL) subcutaneous pen (Levemir FlexPen) simvastatin 40 mg tablet 40 mg PO HS 07/27/23 12/07/23 History diclofenac sodium 1 % topical gel 2 g EXT QID #100 grams 08/13/23 12/07/23 Rx (Voltaren Arthritis Pain) amitriptyline 100 mg tablet 0 mg PO HS Did Not Take/[employer] Med 12/07/23 12/07/23 History amitriptyline 25 mg tablet 25 mg PO DAILY 12/07/23 12/07/23 History bumetanide 1 mg tablet 2 mg PO QAM 12/07/23 12/07/23 History collagenase clostridium histo. 250 250 unit topical 2XD 12/07/23 12/07/23 History unit/gram topical ointment (Santyl) cyanocobalamin (vitamin B-12) 1,000 mcg PO DAILY 12/07/23 12/07/23 History 1,000 mcg tablet (Vitamin B-12) ferrous sulfate 325 mg (65 mg 325 mg PO DAILY 12/07/23 12/07/23 History iron) tablet (Iron (ferrous sulfate)) insulin glargine 100 unit/mL 10 unit subcut DAILY 12/07/23 12/07/23 History subcutaneous solution (Lantus U-100 Insulin) lisinopril 20 mg tablet 20 mg PO DAILY 12/07/23 12/07/23 History pantoprazole 40 mg tablet,delayed 40 mg PO DAILY 12/07/23 12/07/23 History release (Protonix) vancomycin 125 mg capsule 125 mg PO Q6 12/07/23 12/07/23 History Patient History Medical History Hyponatremia Ulcer of right heel Fall Pseudomonas infection History of anesthesia reaction woke up during shoulder arthroscopy RBBB Hypoxia Hyperglycemia due to type 2 diabetes mellitus Pneumonia due to COVID-19 virus COVID-19 hx of in 2019--per pt was hospitalized for COVID--states no symptoms currently Bifascicular block Foot drop LEFT Chronic back pain Hx of irritable bowel syndrome Cataract Bilateral Umbilical hernia Hiatal hernia PTSD (post-traumatic stress disorder) History of diverticulitis Tear of medial meniscus of right knee, current Diabetes mellitus with hyperglycemia, with long-term current use of insulin Neck pain Narrowing of C6-C7 with bone spurs. CAUSES NUMBNESS IN LEFT ARM Anxiety Hyperlipidemia Hypertension History of migraine Hyperosmolar hyponatremia Fibromyalgia Surgical History History of repair of right rotator cuff History of repair of left rotator cuff History of repair of ACL L S/P rotator cuff repair History of arthroscopy of right shoulder History of dilatation and curettage History of repair of ACL R History of esophagogastroduodenoscopy (EGD) History of colonoscopy History of D&C Family History Grandfather Diabetes Mother Myocardial infarction Heart disease Tobacco abuse Hx of CABG Family/Other Family history of diabetes mellitus Brother Family history of diabetes mellitus Father Aortic aneurysm Grandmother (Paternal) Cerebral aneurysm Stroke Other Family history of colon cancer in mother Social History Smoking Status: Never smoker Second Hand Exposure: No; Do You Dip or Chew Tobacco: No; Tobacco Cessation Education Requested by Patient: No Hx Alcohol Use: No Hx Substance Use: No Preferred Language: Martiniquais Communication Ability: Effective Visual Impairment: No Limitations Principal Android Developer Required: No Beliefs That Will Affect Care: None marital status: Current Living Situation: Rehab Other Information That Helps Us Care for You: No Feels Safe at Home: Yes Safety Concerns: Feels Safe At This Time Assistive Devices: Glasses, Oxygen - at Night, Walker and Wheelchair Review of Systems Review of Systems: All systems reviewed & are unremarkable except as noted in HPI & below Physical Exam Constitutional: + obese; no acute distress Eyes: Wears glasses ENMT: Ears: no hearing impairment Neck: trachea midline Respiratory: normal respiratory effort; no respiratory distress and no labored breathing Cardiovascular: Rate/Rhythm: regular rate and regular rhythm Gastrointestinal (Abdomen): Soft without rebound tenderness or guarding. Musculoskeletal: The patient's right medial thigh was examined. On the medial portion in the middle one third of her thigh there is an area of eschar measuring approximately 2 cm x 2 cm. There is some induration to the noted surrounding tissue with some erythema. There are no open areas or areas of drainage. There is no crepitus in the soft tissue Skin: See above for description of patient's right thigh Neurologic: moves all extremities Psychiatric: A+Ox3, euthymic affect Results & Data Vital Signs (Past 12 Hours) Vital Signs Temp Pulse Pulse Resp BP BP Pulse Ox 12/07/23 21:39 86 16 144/71 H 94 12/07/23 19:01 80 12/07/23 17:00 87 18 154/76 H 97 12/07/23 16:17 80 18 97 12/07/23 14:14 18 12/07/23 14:14 37.5 C 91 H 18 153/79 H 100 O2 Del Method O2 Flow Rate 12/07/23 21:39 Nasal Cannula 2 12/07/23 19:01 12/07/23 17:00 Room Air 12/07/23 16:17 Room Air 12/07/23 14:14 12/07/23 14:14 Room Air PG Care Time/CCT Total # of Minutes Spent Total Time Spent with Patient: Total time spent is greater than 50% in coordination of care (as documented) at patient's floor/unit and/or counseling patient: Coding Level of Care Code 59456 IN/OBS CONSULT LVL 5,80M Diagnoses Cellulitis L03.90
[2023-12-07 22:22] LABS: C Reactive Protein 17.95 mg/dl (0-0.5)
[2023-12-07] MEDS: HYDROmorphone INJ 1 MG/ML SYRINGE IV STA (22:36)
[2023-12-07] MEDS ORDERED: ALBUTEROL HFA 8 GM INHALER INH PRN (23:29)
[2023-12-07] MEDS ORDERED: GLUCOSE 10 TAB/TUBE PO PRN (23:29)
[2023-12-07] MEDS ORDERED: DEXTROSE 50% 50 ML SYRINGE IV PRN (23:29)
[2023-12-07] MEDS ORDERED: GLUCOSE 40% GEL 15 GM TUBE PO PRN (23:29)
[2023-12-07] MEDS ORDERED: CARBOHYDRATES FOR HYPOGLYCEMIA PO PRN (23:29)
[2023-12-07] MEDS ORDERED: GLUCAGON FOR INJ 1 MG VIAL SQ PRN (23:29)
[2023-12-08] MEDS: HEPARIN SOD 5,000 UNIT/0.5 ML VIAL SQ SCH (00:21)
[2023-12-08] MEDS: INSULIN ASPART PER UNIT CHARGE SC SCH (00:21)
[2023-12-08] MEDS: HYDROmorphone INJ 1 MG/ML SYRINGE IV PRN (00:22)
[2023-12-08] MEDS: CHERRY SYRUP 5 ML UDP PO SCH (01:28)
[2023-12-08] MEDS: VANCOMYCIN HCL 125 MG/2.5ML SOLN PO SCH (01:28)
--- OUTSIDE RECORDS SUMMARY | 2023-12-08 02:44 | External Medical Summary ---
Author Name Unknown Address Unknown Organization : Laboratory Report Ordering Provider Test Date Status JOEY GARCIA 11/25/2023 11:21:49 Final Observation Date Value Abnormality Reference (Units ) Status Glucose Point of Care 11/25/2023 11:21:49 221 Above high normal 70-120 (mg/dL) Final Performing Location
--- OUTSIDE RECORDS SUMMARY | 2023-12-08 02:44 | External Medical Summary ---
Author Name Unknown Address Unknown Organization : Laboratory Report Ordering Provider Test Date Status JOEY GARCIA 11/26/2023 11:25:45 Final Observation Date Value Abnormality Reference (Units ) Status Glucose Point of Care 11/26/2023 11:25:45 253 Above high normal 70-120 (mg/dL) Final Performing Location
--- OUTSIDE RECORDS SUMMARY | 2023-12-08 02:44 | External Medical Summary ---
Author Name Unknown Address Unknown Organization K1F:LABORATORY [facility] - [address] [place] [address] Laboratory Report Ordering Provider Test Date Status JOEY GARCIA 11/27/2023 08:49:00 Final Observation Date Value Abnormality Reference (Units ) Status WBC, Total 11/27/2023 08:49:00 14.35 Above high normal 4.00-10.80 (K/uL) Final RBC 11/27/2023 08:49:00 3.30 3.85-5.15 (M/uL) Final Hemoglobin 11/27/2023 08:49:00 9.3 Below low normal 12.0-15.3 (g/dL) Final HCT 11/27/2023 08:49:00 29.2 Below low normal 36.0-45.2 (%) Final MCV 11/27/2023 08:49:00 88.5 81.5-97.5 (fL) Final MCH 11/27/2023 08:49:00 28.2 27.0-34.0 (pg) Final MCHC 11/27/2023 08:49:00 31.8 32.0-36.0 (g/dL) Final RDW 11/27/2023 08:49:00 14.6 11.5-15.5 (%) Final Platelets 11/27/2023 08:49:00 580 Above high normal 140-400 (K/uL) Final MPV 11/27/2023 08:49:00 9.7 6.6-11.1 (fL) Final Nucleated erythrocytes/100 leukocytes [Ratio] in Blood by Automated count 11/27/2023 08:49:00 0 <=0 (/100 WBCs) Final Performing Location LABORATORY [facility] - [address] [place] [address]
--- OUTSIDE RECORDS SUMMARY | 2023-12-08 02:44 | External Medical Summary ---
Author Name Unknown Address Unknown Organization K1F:LABORATORY [facility] - [address] [place] [address] Laboratory Report Ordering Provider Test Date Status JOEY GARCIA 11/26/2023 07:07:00 Final Observation Date Value Abnormality Reference (Units ) Status WBC, Total 11/26/2023 07:07:00 14.31 Above high normal 4.00-10.80 (K/uL) Final RBC 11/26/2023 07:07:00 3.16 3.85-5.15 (M/uL) Final Hemoglobin 11/26/2023 07:07:00 9.0 Below low normal 12.0-15.3 (g/dL) Final HCT 11/26/2023 07:07:00 26.9 Below low normal 36.0-45.2 (%) Final MCV 11/26/2023 07:07:00 85.1 81.5-97.5 (fL) Final MCH 11/26/2023 07:07:00 28.5 27.0-34.0 (pg) Final MCHC 11/26/2023 07:07:00 33.5 32.0-36.0 (g/dL) Final RDW 11/26/2023 07:07:00 14.5 11.5-15.5 (%) Final Platelets 11/26/2023 07:07:00 456 Above high normal 140-400 (K/uL) Final MPV 11/26/2023 07:07:00 10.8 6.6-11.1 (fL) Final Nucleated erythrocytes/100 leukocytes [Ratio] in Blood by Automated count 11/26/2023 07:07:00 1 Above high normal <=0 (/100 WBCs) Final Performing Location LABORATORY [facility] - [address] [place] [address]
--- OUTSIDE RECORDS SUMMARY | 2023-12-08 02:44 | External Medical Summary ---
Author Name Unknown Address Unknown Organization K1F:LABORATORY [facility] - [address] [place] [address] Laboratory Report Ordering Provider Test Date Status JOEY GARCIA 11/26/2023 10:03:00 Final Observation Date Value Abnormality Reference (Units ) Status BUN 11/26/2023 10:03:00 89 Above high normal 6-20 (mg/dL) Final Creatinine 11/26/2023 10:03:00 2.1 Above high normal 0.5-1.0 (mg/dL) Final Glomerular filtration rate/1.73 sq M.predicted [Volume Rate/Area] in Serum, Plasma or Blood by Creatinine-based formula (CKD-EPI) 11/26/2023 10:03:00 25 Below low normal >=60 (mL/min) Final eGFR is calculated based on the CKD-EPI 2020 equation. Sodium 11/26/2023 10:03:00 134 Below low normal 135 -146 (mmol/L) Final Potassium 11/26/2023 10:03:00 4.3 3.5-5.1 (m mol/L) Final Cl 11/26/2023 10:03:00 95 Below low normal 98- 107 (mmol/L) Final CO2 11/26/2023 10:03:00 24 22-32 (mmo l/L) Final Anion gap 11/26/2023 10:03:00 15 7-15 (mmol /L) Final Glucose 11/26/2023 10:03:00 224 Above high normal 70 -120 (mg/dL) Final Calcium 11/26/2023 10:03:00 9.2 8.4-10.2 ( mg/dL) Final Performing Location LABORATORY [facility] - [address] [place] [address]
--- OUTSIDE RECORDS SUMMARY | 2023-12-08 02:44 | External Medical Summary ---
Author Name Unknown Address Unknown Organization K1F:LABORATORY [facility] - [address] [place] [address] Laboratory Report Ordering Provider Test Date Status JOEY GARCIA 11/25/2023 07:00:00 Final Observation Date Value Abnormality Reference (Units ) Status BUN 11/25/2023 07:00:00 99 Above high normal 6-20 (mg/dL) Final Creatinine 11/25/2023 07:00:00 2.2 Above high normal 0.5-1.0 (mg/dL) Final Glomerular filtration rate/1.73 sq M.predicted [Volume Rate/Area] in Serum, Plasma or Blood by Creatinine-based formula (CKD-EPI) 11/25/2023 07:00:00 24 Below low normal >=60 (mL/min) Final eGFR is calculated based on the CKD-EPI 2020 equation. Sodium 11/25/2023 07:00:00 133 Below low normal 135 -146 (mmol/L) Final Potassium 11/25/2023 07:00:00 3.4 Below low normal 3.5 -5.1 (mmol/L) Final Cl 11/25/2023 07:00:00 92 Below low normal 98- 107 (mmol/L) Final CO2 11/25/2023 07:00:00 28 22-32 (mmo l/L) Final Anion gap 11/25/2023 07:00:00 13 7-15 (mmol /L) Final Glucose 11/25/2023 07:00:00 138 Above high normal 70 -120 (mg/dL) Final Calcium 11/25/2023 07:00:00 9.2 8.4-10.2 ( mg/dL) Final Performing Location LABORATORY [facility] - [address] [place] [address]
--- OUTSIDE RECORDS SUMMARY | 2023-12-08 02:44 | External Medical Summary ---
Author Name Unknown Address Unknown Organization : Laboratory Report Ordering Provider Test Date Status JOEY GARCIA 11/27/2023 11:25:04 Final Observation Date Value Abnormality Reference (Units ) Status Glucose Point of Care 11/27/2023 11:25:04 169 Above high normal 70-120 (mg/dL) Final Performing Location
--- OUTSIDE RECORDS SUMMARY | 2023-12-08 02:44 | External Medical Summary ---
Author Name Unknown Address Unknown Organization K1F:LABORATORY [facility] - [address] [place] [address] Laboratory Report Ordering Provider Test Date Status JOSEUMANGDAMON 11/25/2023 07:00:00 Final Observation Date Value Abnormality Reference (Units ) Status CRP, low-sensitivity 11/25/2023 07:00:00 170 Above high normal <=5 (mg/L) Final Performing Location LABORATORY [facility] - [address] [place] [address]
--- OUTSIDE RECORDS SUMMARY | 2023-12-08 02:44 | External Medical Summary ---
Author Name Unknown Address Unknown Organization K1F:LABORATORY [facility] - [address] [place] [address] Laboratory Report Ordering Provider Test Date Status JOEY GARCIA 11/28/2023 06:44:00 Final Observation Date Value Abnormality Reference (Units ) Status BUN 11/28/2023 06:44:00 85 Above high normal 6-20 (mg/dL) Final Creatinine 11/28/2023 06:44:00 2.3 Above high normal 0.5-1.0 (mg/dL) Final Glomerular filtration rate/1.73 sq M.predicted [Volume Rate/Area] in Serum, Plasma or Blood by Creatinine-based formula (CKD-EPI) 11/28/2023 06:44:00 24 Below low normal >=60 (mL/min) Final eGFR is calculated based on the CKD-EPI 2020 equation. Sodium 11/28/2023 06:44:00 129 Below low normal 135 -146 (mmol/L) Final Potassium 11/28/2023 06:44:00 4.4 3.5-5.1 (m mol/L) Final Cl 11/28/2023 06:44:00 93 Below low normal 98- 107 (mmol/L) Final CO2 11/28/2023 06:44:00 24 22-32 (mmo l/L) Final Anion gap 11/28/2023 06:44:00 12 7-15 (mmol /L) Final Glucose 11/28/2023 06:44:00 131 Above high normal 70 -120 (mg/dL) Final Calcium 11/28/2023 06:44:00 9.3 8.4-10.2 ( mg/dL) Final Performing Location LABORATORY [facility] - [address] [place] [address]
--- OUTSIDE RECORDS SUMMARY | 2023-12-08 02:44 | External Medical Summary | Summary of Care ---
Author Name Unknown Organization [facility] Address [address] [place] [address] Phone [phone] Care Team Providers Care Wine Bottle Inspector Name Role Phone Paco Cordero MD Primary Care Provider + [phone] Reason for Visit * Reason Comments Abnormal Test Results * Auth/Cert Specialty Diagnoses / Procedures Referred By Yessenia gandara Referred To Contact [facility] [address] [place] [address] Phone: [phone] Emergency Medicine [address] [address] Referral ID Status Reason Start Date Expiration Date Visits Re quested Visits Authorized [id number] Encounter Details Date Type Department Care Team (Latest Contact Info) Description 11/16/2023 11:58 AM EDT - 11/28/2023 3:02 PM EDT Hospital Encounter [address] [facility] 3rd Floor [address] [place] [address] Deng Ness DO [address] [place] [address] Bernabe Gallagher MD [address] [place] [address] [place] [address] Renzo Diop MD [address] [place], [place] [address] [employer] [address] Rickie Jara MD [address] [facility] [place] [address] Various: CDIQDC,EKG Discharge Disposition: SNF Allergies Active Allergy Reactions Criticality Noted Date Comments Amoxicillin 06/26/2014 Clarithromycin Other (Please comment) High 01/16/2023 Heart racing Dextromethorphan Hives High 01/16/2023 Doxylamine Hives High 01/16/2023 Food (See Comments) Hives 06/20/2023 Arnshane[employer] brand 7 Grain Bread Latex 06/18/2014 Qprmiqath-Vqzsdfxarq-Jr-Ap ap Edema face/lips/tongue,It katie High 11/11/2010 Sulfa Antibiotics Other (Please comment),Rash 08/03/2000 malaise documented as of this encounter (statuses as of 11/29/2023) Medications Medication Sig Dispensed Refills Start Date End Date Status Omeprazole 20 MG Oral Capsule Delayed Release (PriLOSEC) Take 1 Capsule by mouth daily before breakfast. 30 Capsule 3 06/14/19 24 Active Insulin Aspart 100 UNIT/ML Subcutaneous Solution (NovoLOG) Glucose 80-150 (units): 0 Glucose 151-200 (units): 2 Glucose 201-250 (units): 4 Glucose 251-300 (units): 6 Glucose greater than 300 (units): 8 1 Each 06/13/19 24 Active LiquaCel Oral Liquid Take 30 mL by mouth in the morning and 30 mL before bedtime. 1800 mL 06/13/19 24 025 Active Insulin Glargine 100 UNIT/ML Subcutaneous Solution (Lantus) Inject 10 Units under the skin at bedtime. 1 Each 06/13/19 24 Active Albuterol Sulfate HFA 108 (90 Base) MCG/ACT Inhalation Aerosol Solution Inhale 2 Puffs by mouth every 6 hours as needed for Dyspnea. 18 g 3 06/13/19 24 Active Levothyroxine Sodium 175 MCG Oral Tablet (Levoxyl) Take 1 Tablet by mouth in the morning. (at least 30 min prior to breakfast or other meds). 30 Tablet 3 06/13/19 24 Active Acetaminophen 325 MG Oral Tablet (Tylenol) Take 2 Tablets by mouth every 6 hours as needed for Pain, Mild, Pain, Moderate or Pain, Severe. Active Cholecalciferol 25 MCG (1000 UT) Oral Tablet Take 50 Tablets by mouth in the morning. Active Ferrous Sulfate 325 (65 Fe) MG Oral Tablet (Feosol) Take 1 Tablet by mouth daily with breakfast. Active Fluticasone Propionate 50 MCG/ACT Nasal Suspension (Flonase) Administer 1 Ramona into nostril in the morning. Active Folic Acid 1 MG Oral Tablet Take 1 Tablet by mouth in the morning. Active Loratadine 5 MG OR TABS Take 1 Tablet by mouth in the morning. Active Magnesium Hydroxide 400 MG/5ML Oral Suspension (Milk of Magnesia) Take 30 mL by mouth daily as needed for Constipation. Active Vitamin B-12 500 MCG Oral Lozenge Take 500 mcg by mouth in the morning. Active Melatonin 3 MG Oral Tablet Take 1 Tablet by mouth at bedtime. 10 Tablet 08/21/19 24 Active Polyethylene Glycol 3350 17 GM Oral Packet (Miralax) Take 1 Packet by mouth daily as needed for Constipation. 14 Each 08/21/19 24 Active Additional Information Patient taking differently:17 g OralBID (.AM/PM), Reported on 11/16/2023 Sennosides-Docus ate Sodium 8.6-50 MG Oral Tablet (Senokot-S) Take 1 Tablet by mouth 2 times a day as needed for Constipation. 10 Tablet 08/21/19 24 Active Bisacodyl 10 MG Rectal Suppository (Dulcolax) Administer 1 Suppository into the rectum daily as needed for Constipation. 12 Suppository 08/21/19 24 Active Bumetanide 2 MG Oral Tablet Take 1 Tablet by mouth in the morning and 1 Tablet before bedtime. 60 Tablet 5 09/17/19 24 Active Albuterol Sulfate (2.5 MG/3ML) 0.083% Inhalation Nebulization Solution (Proventil) Inhale 1 Vial via nebulizer every 4 hours as needed for Shortness of Breath. 360 mL 11 10/09/19 24 Active Airborne Oral Tablet Chewable Take 1 Tablet by mouth every afternoon. Active Fleet Saline Enema 7-19 GM/197ML Rectal Enema Administer 1 Each into the rectum as needed for Constipation (for no bowel movement by the end of the following shift after administration of suppository). Active Nitroglycerin 0.4 MG Sublingual Tablet Sublingual (Nitrostat) Place 1 Tablet under the tongue every 5 minutes as needed for Pain, Chest (notify MD if no relief after 3 tabs.). Active Simethicone 80 MG Oral Tablet (Bicarsim) Take 2 Tablets by mouth 2 times a day as needed for Gas or Other (indigestion). Active Vancomycin HCl 125 MG Oral Capsule (Vancocin) Take 1 Capsule by mouth every 6 hours for 12 days. 48 Capsule 11/23/19 24 Active Alum & Mag Hydroxide-Simeth 400-400-40 MG/5ML Oral Suspension (Mi-Acid II) Take 15 mL by mouth every 6 hours as needed for Indigestion. 355 mL 11/23/19 24 Active Amitriptyline HCl 25 MG Oral Tablet (Elavil) Take 1 Tablet by mouth every night at bedtime. 30 Tablet 3 11/23/19 24 Active Pantoprazole Sodium 40 MG Oral Tablet Delayed Release (Protonix) Take 1 Tablet by mouth daily before breakfast. 30 Tablet 3 11/24/19 24 Active hydrOXYzine HCl 25 MG Oral Tablet Take 1 Tablet by mouth 3 times a day as needed for Anxiety. 30 Tablet 3 11/23/19 24 Active Ondansetron HCl 4 MG Oral Tablet (Zofran) Take 1 Tablet by mouth every 8 hours as needed for Nausea. 30 Tablet 11/23/19 24 Active Doxycycline Hyclate 100 MG Oral Tablet Take 1 Tablet by mouth in the morning and 1 Tablet before bedtime. Do all this for 9 days. 18 Tablet 11/28/19 24 Active Cefdinir 300 MG Oral Capsule (Omnicef) Take 1 Capsule by mouth in the morning and 1 Capsule before bedtime. Do all this for 9 days. 18 Capsule 11/28/19 24 024 Active Amitriptyline HCl 100 MG Oral Tablet (Elavil) Take 1 Tablet by mouth every night at bedtime. 30 Tablet 3 06/13/19 24 Discontinued hydrOXYzine HCl 50 MG Oral Tablet Take 1 Tablet by mouth every 8 hours as needed for Anxiety. 30 Tablet 06/13/19 24 Discontinued(Mi dication List Clean Up) Simvastatin 40 MG Oral Tablet (Zocor) Take 1 Tablet by mouth in the morning. 30 Tablet 3 06/13/19 24 Discontinued metOLazone 2.5 MG Oral Tablet (Zaroxolyn) Take 1 Tablet by mouth in the morning. Discontinued Ondansetron HCl 4 MG Oral Tablet (Zofran) Take 1 Tablet by mouth every 8 hours as needed for Nausea. Discontinued Diclofenac Sodium 1 % External Gel (Voltaren Arthritis Pain) Apply 1 % topically to affected area 4 times a day as needed for Pain, Moderate or Pain, Severe. Apply to shoulder, affected area Discontinued(Me dication List Clean Up) Gabapentin 100 MG Oral Capsule (Neurontin) Take 1 Capsule by mouth 3 times a day as needed (neuropathicpain) . 30 Capsule 08/21/19 Discontinued Sodium Hypochlorite 0.25 % External Solution Apply topically to affected area daily. 473 mL 08/22/19 24 Discontinued(Me dication List Clean Up) Bisacodyl 5 MG Oral Tablet Delayed Release (Dulcolax) Take 1 Tablet by mouth daily as needed for Constipation. 30 Tablet 08/21/19 24 Discontinued(Me dication List Clean Up) guaiFENesin 100 MG/5ML Oral Liquid (Robitussin) Take 10 mL by mouth every 4 hours as needed for Cough. 120 mL 10/08/19 Discontinued(Me dication List Clean Up) meropenem IV IV (AMBULATORY) Administer 500 mg intravenously in the morning and 500 mg before bedtime. 10/08/19 24 Discontinued amLODIPine Besylate 2.5 MG Oral Tablet (Norvasc) Take 1 Tablet by mouth in the morning. 30 Tablet 1 10/08/19 Discontinued Vancomycin HCl 125 MG Oral Capsule (Vancocin) Take 1 Capsule by mouth daily. 11/06/19 24 Discontinued traMADol HCl 50 MG Oral Tablet (Ultram) Take 1 Tablet by mouth every 4 hours as needed for Pain, Moderate or Pain, Severe. Discontinued documented as of this encounter (statuses as of 11/29/2023) Active Problems Problem Noted Date Diagnosed Date Right sided abdominal pain 11/23/2023 Redness and swelling of thigh 11/22/2023 Pressure injury of sacral region, stage 3 2023 Bedridden 11/22/2023 PERLITA (acute kidney injury) 11/17/2023 RBBB (right bundle branch block) 11/17/2023 LAFB (left anterior fascicular block) 11/17/2023 Accelerated junctional rhythm 11/17/2023 Lethargy 11/16/2023 Fever 11/16/2023 Diarrhea 11/16/2023 Black stools 11/16/2023 Dizziness 11/16/2023 Fibromyalgia 11/16/2023 Acute osteomyelitis of calcaneum, right 11/16/19 Pressure injury of sacral region, unstageable Pain in both thighs 11/16/2023 Anemia in stage 4 chronic kidney disease 024 Severe sepsis with acute organ dysfunction 10/03 Acute osteomyelitis of calcaneum, right 10/03/19 24 Elevated troponin 08/16/2023 Demand ischemia 08/16/2023 Acute hyponatremia 08/16/2023 Hypoalbuminemia 08/16/2023 Bifascicular bundle branch block 08/16/2023 Iron deficiency anemia 06/18/2023 HCAP (healthcare-associated pneumonia) (HFpEF) heart failure with preserved ejection fr action 06/17/2023 Moderate tricuspid regurgitation 06/08/2023 Mild mitral stenosis 06/05/2023 Acute on chronic heart failu re with preserved ejection fraction (HFpEF) 06/03/2023 Mitral valve insufficiency 06/03/2023 Mild tricuspid regurgitation 06/03/2023 Moderate pulmonary hypertension 06/03/2023 AV junctional rhythm 06/03/2023 Chronic kidney disease, stage IV (severe) 2023 Obesity, morbid (more than 1 00 lbs over ideal weight or BMI > 40) 06/03/2023 Ambulatory dysfunction 04/24/2023 Diabetic ulcer of right heel 04/12/2023 Anxiety 01/16/2023 Fibromyalgia 01/16/2023 Gastroesophageal reflux disease 01/16/2023 Type 2 diabetes mellitus, wi th long-term current use of insulin 06/18/2014 Overview: ICD-10 update of inactive term Hypertension 06/18/2014 Hypothyroid 06/18/2014 documented as of this encounter (statuses as of 11/29/2023) Resolved Problems Problem Noted Date Diagnosed Date Resolved Date Acute renal failure with acu te tubular necrosis superimposed on stage 4 chronic kidney disease 10/08/2023 10/09/2023 Acute renal failure superimp osed on stage 4 chronic kidney disease 10/04/2023 10/08/2023 Acute on chronic respiratory failure with hypoxia 10/03/2023 10/08/2023 Rhinovirus infection 08/21/2023 024 Hyperkalemia 08/16/2023 10/04/2023 Cellulitis of index finger 06/19/2023 0 06/25/2023 Anasarca 06/18/2023 10/04/2023 Atypical chest pain 06/17/2023 10/04/19 BPPV (benign paroxysmal positional vertigo) 06/17/2023 06/18/2023 Hypokalemia 06/17/2023 06/19/2023 Hypomagnesemia 06/17/2023 06/25/2023 documented as of this encounter (statuses as of 11/29/2023) Immunizations Name Administration Dates Next Due PPD 10/08/2018 Pneumococcal Conjugate Vacci ne, 20-valent ([id number]) 11/28/2023,11/23/2023(Deferred: Patient Refused) Seasonal Influenza, Trivalen t, (IIV3), PF, (Fluzone) 11/28/2023,11/23/2023(Deferred: Patient Refused) documented as of this encounter Social History Tobacco Use Types Packs/Day Years Used Date Smoking Tobacco: Never Smokeless Tobacco: Never Alcohol Use Standard Drinks/Week Comments No 0 (1 standard drink = 0.6 oz pur e alcohol) Personal Safety Answer Date Recorded Do you feel unsafe or have concerns for your saf ety? No 10/03/2023 Do you have concerns for you r family's safety? (Household - for ages 0-17 years) Not on file 10/03/2023 Utilities Answer Date Recorded Do you have trouble paying y our heating, water, or electric bill? No 10/03/2023 Is your family able to pay t he heat, water, or electric bill? (Household - for ages 0-17 years) Not on file 10/03/2023 Does your family have access to good internet? (Household - for ages 0-17 years) Not on file 10/03/2023 Social Connections Answer Date Recorded How often do you feel lonely or isolated from those around you? (Adult - for ages 18 years and over) Not on file 08/28/2023 Transportation Needs Answer Date Record ed READ ONLY Do you have troubl e getting a ride to medical visits or work? Never True 10/03/2023 Does your family have a hard time getting a ride to doctors visits? (Household - for ages 0-17 years) Not on file 10/03/2023 Has lack of transportation k ept you from medical appointments, meetings, work, or from getting things needed for daily living? Check all that apply. No 10/03/2023 Do you (or your family) have trouble finding or paying for a ride (transportation)? (Household - for ages 0-17 years) Not on file 10/03/2023 Housing Stability Answer Date Recorded Do you currently live in a s helter or have no steady place to sleep at night? (Adult - for ages 18 years and over) Not on file 10/03/2023 READ ONLY Do you think you a re at risk of becoming homeless? No 10/03/2023 Does your family worry about paying for your home or becoming homeless? (Household - for ages 0-17 years) Not on file 0 10/03/2023 Are you homeless or worried that you might be in the future? No 10/03/2023 Are you (or your family) sammy eless or worried that you might be in the future? (Household - for ages 0-17 years) Not on file Food Insecurity Answer Date Recorded Do you need food for this week? No 10/03/2023 Are you able to get enough f ood for your family? (Household - for ages 0-17 years) Not on file 10/03/2023 Does your family need food t his week? (Household - for ages 0-17 years) Not on file 10/03/2023 Do you always have enough fo od for your family? (Household - for ages 0-17 years) Not on file 10/03/2023 Sex and Gender Information Value Date Recorded Sex Assigned at Not on file Gender Identity Not on file Sexual Orientation Not on file Job Start Date Occupation Industry Not on file Not on file Not on file documented as of this encounter Last Filed Vital Signs Vital Sign Reading Time Taken Comments Blood Pressure 183/65 11/28/2023 11:17 AM EDT Pulse 68 11/28/2023 11:17 AM EDT Temperature 36.6 C (97.9 F) 11/28/2023 1 1:17 AM EDT Respiratory Rate 18 11/28/2023 11:1 7 AM EDT Oxygen Saturation 100% 11/28/2023 11: 17 AM EDT Inhaled Oxygen Concentration - - Weight 107.5 kg (236 lb 15.9 oz) 11/28/2023 6:00 AM EDT Height 157.5 cm (5' 2") 11/16/2023 5:20 PM EDT Body Mass Index 43.35 11/16/2023 5:20 PM EDT documented in this encounter Functional Status Functional Status Response Date of Assess ment Are you deaf or do you have serious difficulty h earing? No 11/16/2023 Are you blind or do you have serious difficulty seeing, even when wearing glasses? No 11/16/2023 Do you have serious difficul ty walking or climbing stairs? (5 years old or older) Yes 11/16/2023 Do you have difficulty dress ing or bathing? (5 years old or older) Yes 11/16/2023 Because of a physical, menta l, or emotional condition, do you have difficulty doing errands alone such as visiting a doctor s office or shopping? (15 years old or older) Yes 11/16/19 Cognitive Status Response Date of Assessm ent Because of a physical, menta l, or emotional condition, do you have serious difficulty concentrating, remembering, or making decisions? (5 years old or older) No 11/16/2023 documented as of this encounter Discharge Summaries * Renzo Diop MD - 11/28/2023 2:42 PM EDT Images from the original note were not included. [facility] [address] Admission Date: 11/16/2023 Discharge Date: 11/28/2023 RECOMMENDED TO DO FOR NEXT PROVIDER(S): Cbc and bmp in 3 days. REASON(S) FOR MEDICATION CHANGE(S): Discontinue gabapentin,tramadol, simvastatin due to jerk movements and mental status change Decrease Elavil to 25 mg at bed time to avoid jerk movement. House antacid 15 ml every 6 hours as needed for nausea, indigestion. Add pantoprazole 40 mg daily before breakfast for acid reflux. Please finish the course of PO vancomycin 125 mg every 6 hourly for c.diff diarrhea. Hydroxyzine 25 mg 1 tablet 3 times a day as needed for anxiety, please hold it if you are confused. Hold metolazone due to acute kidney injury due to ATN Zofran 4 mg every 6 hours as needed for nausea. PO OMNICEF AND DOXY FOR 9 DAYS For Right thigh cellulitis. DISPOSITION ON DISCHARGE: fdc: [facility] Active Hospital Problems Diagnosis *Principal Diagnosis - Severe sepsis with acute organ dysfunction (HCC) Right sided abdominal pain Redness and swelling of thigh Pressure injury of sacral region, stage 3 ([facility]) Bedridden PERLITA (acute kidney injury) ([facility]) RBBB (right bundle branch block) LAFB (left anterior fascicular block) Accelerated junctional rhythm Lethargy Fever Diarrhea Black stools Dizziness Fibromyalgia Acute osteomyelitis of calcaneum, right (HCC) Pressure injury of sacral region, unstageable (HCC) Pain in both thighs Anemia in stage 4 chronic kidney disease ([facility]) Acute hyponatremia Obesity, morbid (more than 100 lbs over ideal weight or BMI > 40) ([facility]) Anxiety Resolved Hospital Problems No resolved problems to display. ADMISSION HISTORY & PHYSICAL EXAM (focused): PRESENTING PROBLEM: -lethargy , pale -feeling sick for one week with abdominal pain, nausea, diarrhea -fever 102 F, dizziness yesterday -black stools, jerky movement of RUE noted in ED HPI: 63 yo F with PMH of morbid obesity BMI 45.09, stage 4 CKD, HTN, DM2, fibromyalgia,, hypothyroid, chronic anemia with baseline Hb between 7 to 8 , HFpEF, chronically on 2 L NC, C.diff infection on 11/05, OM of right heel ( pseudomonas ) recently completed meropenem on 11/13/23 presented from [facility] for [facility]y., pale .She reported feeling sick for one week with abdominal pain, nausea, diarrhea. Had fever of 102 F yesterday. She noted to have sleepy during conversation and stimulate multiple times to get the answers. She had a black loose bowel movement and small open multiple sacral decubitus ulcers and right heel ulcer. Also noted focal redness, indurated , tenderness in left and right inner thighs. Denies chest pain, shortness of breath. Her Legs are swollen but she said this isher baseline. Work up showed leucocytosis, severe anemia Hb 6.3, hyponatremia 129, BUN/.Cr- 146/3.7 , pro calcitonin 0.22, CRP 147 , UA positive for esterase ., bacteruria , WBC's, troponin 427 and 419. CTAP was unremarkable for bowel obstruction, no focal thickening identified. CT LE was unremarkable for fluid collection. EKG showed wide QRS complex which is pretty much the same as prior EKG. IMPRESSION: Active Problems: Morbid obesity with BMI of 45.0-49.9, adult (HCC) Sepsis (HCC) Lethargy Fever Diarrhea Black stools Dizziness Fibromyalgia Acute osteomyelitis of calcaneum, right (HCC) Pressure injury of sacral region, unstageable (HCC) Pain in both thighs Resolved Problems: * No resolved hospital problems. * DIFFERENTIAL AND PLAN: S/p 1 unit of PRBC for severe anemia -Monitor for bowel movement , noted black loose stools in ED, if she continues to have black stools, suggested endoscopy -Continue Protonix drip -Clear liquid diet -Transfuse Hb less than 7 g/dl -Monitor Hb Q 6 H -GI consult Severe sepsis possible sources GI//skin, OM -indwelling pruett was placed in ED , monitor I/O -continue IV meropenem/vancomycin -ID consult , defer to primary team -f/u cultures HFpEF -give IV lasix 40 mg in post transfusion -resume Bumex , metolazone tomorrow -ECHO due to elevated troponin's -trends troponin -cardiology consult CKD stage 4, hyponatremia, uremia -nephrology consult -continue supplemental oxygen 2 L NC -podiatry and wound consult for R heel Ulcer /OM and sacral decubitus ulcers Hypothyroid-stable -continue levothyroxine DM 2 -start SS mauro log today, resume Lantus 10 U HS tomorrow CODE STATUS: Full Code HOSPITAL COURSE (focused): Patient was admitted and monitored in [facility] unit. She was initially found to be somewhat drowsy and lethargic, and requiring couple of units of PRBC transfusion. She did better after blood transfusion was completed. Her mental status continued to improve during hospitalization. She continued to have diarrhea, for which C diff testing was repeated and was negative. However C diff treatment was still ongoing since it was initiated prior to admission. She was initially placed on broad-spectrum antibiotics due to initial admission concerning for sepsis. Blood cultures however continued to remain negative. She had right heel chronic wound/osteomyelitis for which she was previously on IV antibiotic therapy. Podiatry did evaluate the heel, and felt that it was doing well and recommended continuing dressing changes, which nursing staff continue to do daily throughout the patient's hospital stay. Patient also had PERLITA on CKD, and was evaluate by Nephrology during hospitalization for the same. The renal functions slowly stabilized over the course of hospitalization. She also had jerky movements/myoclonic spasms which was considered to be a side effect of worseningAKI as well as multiple medications with the patient was taking. Some of her medications including gabapentin, tramadol and simvastatin were discontinued due to the same. There was concern for skin and soft tissue infection in the right posterior thigh given significantredness and skin changes noted on the same side. This was thought to be sort of pressure related injury. Patient was initially on broad- spectrum antibiotics and has created to meropenem then cefepime. She was initially taken off antibiotics, and monitored. Over the course of the next few days of antibiotics, her inflammatory markers and WBC count slowly trended up. I also got ultrasound of the right thigh area (nonvascular). This did not show any obvious fluid collection, but did show significant edema in the area consistent with cellulitis. Hence decision made to initiate the patient on IV Rocephin p.o. doxy, to cover usual suspects including MRSA and strep. Patient made steady progress with the same, and a number started to trend in the right direction again. She was eventually discharged in a relatively stable condition back to [facility]. Of note she did have a repeat DVT study of her lower extremities on day of discharge, which did not reveal anyacute DVT. Vitals and physical exam stable on day of discharge relatively.Blood pressure 183/65, pulse 68, temperature 36.6 C (97.9 F), temperature source Temporal Artery, resp. rate 18, height 1.575 m (5' 2"), weight 107.5 kg (236 lb 15.9 oz), last menstrual period 11/22/2002, SpO2 100%. Operations & Procedures: none Complications: none significant Significant Lab and Imaging Results: Results for orders placed or performed during the hospital encounter of 11/16/23 CLOSTRIDIUM DIFFICILE, PCR Result Value Ref Range Stool Consistency Semi-liquid Clostridium difficile Result Negative Negative. No C. difficile toxin B gene DNA detected by PCR (Amplified Probe). COMPREHENSIVE METABOLIC PANEL Result Value Ref Range BUN 146 (H) 6 - 20 mg/dL CREATININE 3.7 (H) 0.5 - 1.0 mg/dL EGFR 13 (L) >=60 mL/min SODIUM 129 (L) 135 - 146 mmol/L POTASSIUM 4.8 3.5 - 5.1 mmol/L CHLORIDE 89 (L) 98 - 107 mmol/L CO2 23 22 - 32 mmol/L ANION GAP 17 (H) 7 - 15 mmol/L GLUCOSE 190 (H) 70 - 120 mg/dL Albumin 2.0 (L) 3.8 - 5.0 g/dL AST 20 10 - 35 U/L Alkaline Phosphatase 223 (H) 35 - 130 U/L Bilirubin, Total <0.2 <=1.2 mg/dL CALCIUM 8.2 (L) 8.4 - 10.2 mg/dL Protein 6.3 6.0 - 8.3 g/dL ALT 11 10 - 35 U/L PROCALCITONIN Result Value Ref Range Procalcitonin 0.22 (H) <0.10 ng/mL TROPONIN T, HIGH SENSITIVITY Result Value Ref Range Troponin T, High Sensitivity 427 (HH) <=14 ng/L LACTATE, WHOLE BLOOD WITH REFLEX IF ABNORMAL Result Value Ref Range Lactate, Whole Blood 1.2 0.4 - 2.0 mmol/L PT INR Result Value Ref Range Prothrombin Time 19.0 (H) 11.6 - 15.2 seconds INR 1.6 (H) 0.8 - 1.2 APTT Result Value Ref Range aPTT 38 21 - 38 seconds BLOOD GAS, VENOUS Result Value Ref Range Temperature 37.0 C pH, Venous 7.369 7.320 - 7.430 units pCO2, Venous 48.2 40.0 - 60.0 mmHg pO2, Venous 36.8 25.0 - 50.0 mmHg Base Excess, Venous 2.2 (H) -2.0 - 2.0 mmol/L HGB 6.7 (L) 12.0 - 15.3 g/dL Oxyhemoglobin, Venous 57.3 40.0 - 85.0 % total Hgb Carboxyhemoglobin, Whole Blood 2.0 (H) <=1.5 % total Hgb Methemoglobin, Whole Blood 0.5 <=1.5 % total Hgb Reduced Hemoglobin, Venous 40.2 % total Hgb O2 Content, Venous 5.5 (L) 7.0 - 18.0 %vol Bicarbonate, Whole Blood 27.1 23.0 - 31.0 mmol/L CULTURE, BLOOD Result Value Ref Range Blood Culture Growth No growth CULTURE, BLOOD Result Value Ref Range Blood Culture Growth No growth TYPE AND SCREEN Result Value Ref Range ABO A Rh Positive Red Blood Cell Antibody Screen Negative Specimen Expiration Date 11/19/2023 23:59 CBC Result Value Ref Range WBC 13.86 (H) 4.00 - 10.80 K/uL RBC 2.24 3.85 - 5.15 M/uL HGB 6.3 (L) 12.0 - 15.3 g/dL HCT 19.8 (L) 36.0 - 45.2 % MCV 88.4 81.5 - 97.5 fL MCH 28.1 27.0 - 34.0 pg MCHC 31.8 32.0 - 36.0 g/dL RDW 14.9 11.5 - 15.5 % PLT 470 (H) 140 - 400 K/uL MPV 10.2 6.6 - 11.1 fL nRBCs 0 <=0 /100 WBCs DIFFERENTIAL, AUTOMATED Result Value Ref Range WBC 13.86 (H) 4.00 - 10.80 K/uL Neutrophils % 77.4 (H) 40.0 - 75.0 % Lymphocytes % 12.2 (L) 18.0 - 42.0 % Monocytes % 6.4 1.0 - 11.0 % Eosinophils % 2.1 0.0 - 6.0 % Basophils % 0.1 0.0 - 2.0 % Immature Granulocytes % 1.8 0.0 - 2.0 % Absolute Neutrophils 10.72 (H) 1.80 - 7.70 K/uL Absolute Lymphocytes 1.69 1.00 - 4.80 K/ul Absolute Monocytes 0.89 0.00 - 1.10 K/uL Absolute Eosinophils 0.29 0.00 - 0.70 K/uL Absolute Basophils 0.02 0.00 - 0.20 K/uL Absolute Immature Granulocytes 0.25 (H) 0.00 - 0.20 K/uL URINALYSIS, REFLEX TO CULTURE (CUP ONLY) Result Value Ref Range Urinalysis, Reflex to Culture Specimen Specimen collected and received URINALYSIS, REFLEX TO CULTURE Result Value Ref Range Color, Urine Yellow Colorless, Light Yellow, Yellow, Dark Yellow Clarity, Urine Slightly Cloudy (A) Clear Glucose, Urine Negative Negative mg/dL Bilirubin, Urine Negative Negative Ketone, Urine Negative Negative mg/dL Specific [place], Urine 1.010 1.003 - 1.030 Blood, Urine Small (A) Negative pH, Urine 6.0 5.0 - 7.5 Units Protein, Urine 100 (A) Negative mg/dL Urobilinogen, Urine 0.2 0.2, 1.0 mg/dL Nitrite, Urine Negative Negative Esterase, Urine Large (A) Negative RBC, Urine 0-2 0 - 2 /HPF WBC, Urine 50+ (A) 0 - 2 /HPF Bacteria, Urine >200 (A) 0 - 25 /HPF Yeast, Urine Present (A) None /HPF Culture, Urine CRP (INFLAMMATORY MARKER) Result Value Ref Range CRP (Inflammatory Marker) 147 (H) <=5 mg/L TROPONIN T, HIGH SENSITIVITY Result Value Ref Range Troponin T, High Sensitivity 419 (HH) <=14 ng/L AMMONIA Result Value Ref Range Ammonia <10 (L) 11 - 35 umol/L MRSA SCREEN, PCR Result Value Ref Range MRSA PCR Result Negative Negative CULTURE, URINE, QUANTITATIVE Specimen: Urine, Clean Catch Result Value Ref Range Culture Growth No significant growth HGB Result Value Ref Range HGB 7.5 (L) 12.0 - 15.3 g/dL HGB Result Value Ref Range HGB 6.8 (L) 12.0 - 15.3 g/dL TROPONIN T, HIGH SENSITIVITY Result Value Ref Range Troponin T, High Sensitivity 332 (HH) <=14 ng/L COMPREHENSIVE METABOLIC PANEL Result Value Ref Range BUN 131 (H) 6 - 20 mg/dL CREATININE 3.2 (H) 0.5 - 1.0 mg/dL EGFR 16 (L) >=60 mL/min SODIUM 132 (L) 135 - 146 mmol/L POTASSIUM 4.5 3.5 - 5.1 mmol/L CHLORIDE 92 (L) 98 - 107 mmol/L CO2 24 22 - 32 mmol/L ANION GAP 16 (H) 7 - 15 mmol/L GLUCOSE 161 (H) 70 - 120 mg/dL Albumin 2.2 (L) 3.8 - 5.0 g/dL AST 17 10 - 35 U/L Alkaline Phosphatase 224 (H) 35 - 130 U/L Bilirubin, Total 0.4 <=1.2 mg/dL CALCIUM 8.5 8.4 - 10.2 mg/dL Protein 6.8 6.0 - 8.3 g/dL ALT 10 10 - 35 U/L MAGNESIUM Result Value Ref Range Magnesium 1.8 1.5 - 2.6 mg/dL PHOSPHORUS Result Value Ref Range Phosphorus 6.9 (H) 2.5 - 4.8 mg/dL TROPONIN T, HIGH SENSITIVITY Result Value Ref Range Troponin T, High Sensitivity 320 (HH) <=14 ng/L CBC Result Value Ref Range WBC 13.81 (H) 4.00 - 10.80 K/uL RBC 2.93 3.85 - 5.15 M/uL HGB 8.1 (L) 12.0 - 15.3 g/dL HCT 25.2 (L) 36.0 - 45.2 % MCV 86.0 81.5 - 97.5 fL MCH 27.6 27.0 - 34.0 pg MCHC 32.1 32.0 - 36.0 g/dL RDW 14.6 11.5 - 15.5 % PLT 444 (H) 140 - 400 K/uL MPV 9.6 6.6 - 11.1 fL nRBCs 0 <=0 /100 WBCs DIFFERENTIAL, AUTOMATED Result Value Ref Range WBC 13.81 (H) 4.00 - 10.80 K/uL Neutrophils % 79.7 (H) 40.0 - 75.0 % Lymphocytes % 9.8 (L) 18.0 - 42.0 % Monocytes % 6.5 1.0 - 11.0 % Eosinophils % 2.3 0.0 - 6.0 % Basophils % 0.3 0.0 - 2.0 % Immature Granulocytes % 1.4 0.0 - 2.0 % Absolute Neutrophils 11.00 (H) 1.80 - 7.70 K/uL Absolute Lymphocytes 1.36 1.00 - 4.80 K/ul Absolute Monocytes 0.90 0.00 - 1.10 K/uL Absolute Eosinophils 0.32 0.00 - 0.70 K/uL Absolute Basophils 0.04 0.00 - 0.20 K/uL Absolute Immature Granulocytes 0.19 0.00 - 0.20 K/uL GASTROINTESTINAL PATHOGEN PANEL PCR Result Value Ref Range Campylobacter group by PCR Negative Negative Salmonella species by PCR Negative Negative Shigella species by PCR Negative Negative Vibrio group by PCR Negative Negative Yersinia enterocolitica by PCR Negative Negative Shiga Toxin 1 Gene by PCR Negative Negative Shiga Toxin 2 Gene by PCR Negative Negative Norovirus by PCR Negative Negative Rotavirus by PCR Negative Negative GASTROINTESTINAL PATHOGEN PANEL CULTURE Result Value Ref Range Culture Growth No Aeromonas species or Plesiomonas species isolated. HGB Result Value Ref Range HGB 8.6 (L) 12.0 - 15.3 g/dL VANCOMYCIN RANDOM Result Value Ref Range Vancomycin Random 14.4 10.0 - 40.0 ug/mL COMPREHENSIVE METABOLIC PANEL Result Value Ref Range BUN 126 (H) 6 - 20 mg/dL CREATININE 3.2 (H) 0.5 - 1.0 mg/dL EGFR 16 (L) >=60 mL/min SODIUM 131 (L) 135 - 146 mmol/L POTASSIUM 3.9 3.5 - 5.1 mmol/L CHLORIDE 91 (L) 98 - 107 mmol/L CO2 25 22 - 32 mmol/L ANION GAP 15 7 - 15 mmol/L GLUCOSE 128 (H) 70 - 120 mg/dL Albumin 2.1 (L) 3.8 - 5.0 g/dL AST 18 10 - 35 U/L Alkaline Phosphatase 217 (H) 35 - 130 U/L Bilirubin, Total 0.3 <=1.2 mg/dL CALCIUM 8.4 8.4 - 10.2 mg/dL Protein 6.6 6.0 - 8.3 g/dL ALT 10 10 - 35 U/L CBC Result Value Ref Range WBC 12.27 (H) 4.00 - 10.80 K/uL RBC 2.81 3.85 - 5.15 M/uL HGB 8.0 (L) 12.0 - 15.3 g/dL HCT 24.5 (L) 36.0 - 45.2 % MCV 87.2 81.5 - 97.5 fL MCH 28.5 27.0 - 34.0 pg MCHC 32.7 32.0 - 36.0 g/dL RDW 14.6 11.5 - 15.5 % PLT 447 (H) 140 - 400 K/uL MPV 10.1 6.6 - 11.1 fL nRBCs 0 <=0 /100 WBCs DIFFERENTIAL, AUTOMATED Result Value Ref Range WBC 12.27 (H) 4.00 - 10.80 K/uL Neutrophils % 75.6 (H) 40.0 - 75.0 % Lymphocytes % 11.7 (L) 18.0 - 42.0 % Monocytes % 7.0 1.0 - 11.0 % Eosinophils % 3.5 0.0 - 6.0 % Basophils % 0.2 0.0 - 2.0 % Immature Granulocytes % 2.0 0.0 - 2.0 % Absolute Neutrophils 9.28 (H) 1.80 - 7.70 K/uL Absolute Lymphocytes 1.43 1.00 - 4.80 K/ul Absolute Monocytes 0.86 0.00 - 1.10 K/uL Absolute Eosinophils 0.43 0.00 - 0.70 K/uL Absolute Basophils 0.03 0.00 - 0.20 K/uL Absolute Immature Granulocytes 0.24 (H) 0.00 - 0.20 K/uL CRP (INFLAMMATORY MARKER) Result Value Ref Range CRP (Inflammatory Marker) 176 (H) <=5 mg/L TROPONIN T, HIGH SENSITIVITY Result Value Ref Range Troponin T, High Sensitivity 219 (HH) <=14 ng/L HGB Result Value Ref Range HGB 8.0 (L) 12.0 - 15.3 g/dL TROPONIN T, HIGH SENSITIVITY Result Value Ref Range Troponin T, High Sensitivity 212 (HH) <=14 ng/L HGB Result Value Ref Range HGB 8.2 (L) 12.0 - 15.3 g/dL BASIC METABOLIC PANEL Result Value Ref Range BUN 122 (H) 6 - 20 mg/dL CREATININE 3.0 (H) 0.5 - 1.0 mg/dL EGFR 17 (L) >=60 mL/min SODIUM 130 (L) 135 - 146 mmol/L POTASSIUM 3.8 3.5 - 5.1 mmol/L CHLORIDE 90 (L) 98 - 107 mmol/L CO2 27 22 - 32 mmol/L ANION GAP 13 7 - 15 mmol/L GLUCOSE 164 (H) 70 - 120 mg/dL CALCIUM 8.4 8.4 - 10.2 mg/dL CBC Result Value Ref Range WBC 11.84 (H) 4.00 - 10.80 K/uL RBC 2.96 3.85 - 5.15 M/uL HGB 8.3 (L) 12.0 - 15.3 g/dL HCT 26.1 (L) 36.0 - 45.2 % MCV 88.2 81.5 - 97.5 fL MCH 28.0 27.0 - 34.0 pg MCHC 31.8 32.0 - 36.0 g/dL RDW 14.6 11.5 - 15.5 % PLT 452 (H) 140 - 400 K/uL MPV 10.1 6.6 - 11.1 fL nRBCs 0 <=0 /100 WBCs DIFFERENTIAL, AUTOMATED Result Value Ref Range WBC 11.84 (H) 4.00 - 10.80 K/uL Neutrophils % 75.4 (H) 40.0 - 75.0 % Lymphocytes % 11.4 (L) 18.0 - 42.0 % Monocytes % 8.4 1.0 - 11.0 % Eosinophils % 3.0 0.0 - 6.0 % Basophils % 0.3 0.0 - 2.0 % Immature Granulocytes % 1.5 0.0 - 2.0 % Absolute Neutrophils 8.92 (H) 1.80 - 7.70 K/uL Absolute Lymphocytes 1.35 1.00 - 4.80 K/ul Absolute Monocytes 0.99 0.00 - 1.10 K/uL Absolute Eosinophils 0.36 0.00 - 0.70 K/uL Absolute Basophils 0.04 0.00 - 0.20 K/uL Absolute Immature Granulocytes 0.18 0.00 - 0.20 K/uL CBC Result Value Ref Range WBC 13.03 (H) 4.00 - 10.80 K/uL RBC 3.09 3.85 - 5.15 M/uL HGB 8.7 (L) 12.0 - 15.3 g/dL HCT 27.5 (L) 36.0 - 45.2 % MCV 89.0 81.5 - 97.5 fL MCH 28.2 27.0 - 34.0 pg MCHC 31.6 32.0 - 36.0 g/dL RDW 14.6 11.5 - 15.5 % PLT 437 (H) 140 - 400 K/uL MPV 9.9 6.6 - 11.1 fL nRBCs 0 <=0 /100 WBCs BASIC METABOLIC PANEL Result Value Ref Range BUN 111 (H) 6 - 20 mg/dL CREATININE 2.7 (H) 0.5 - 1.0 mg/dL EGFR 19 (L) >=60 mL/min SODIUM 130 (L) 135 - 146 mmol/L POTASSIUM 4.0 3.5 - 5.1 mmol/L CHLORIDE 91 (L) 98 - 107 mmol/L CO2 25 22 - 32 mmol/L ANION GAP 14 7 - 15 mmol/L GLUCOSE 150 (H) 70 - 120 mg/dL CALCIUM 8.5 8.4 - 10.2 mg/dL MAGNESIUM Result Value Ref Range Magnesium 1.8 1.5 - 2.6 mg/dL PHOSPHORUS Result Value Ref Range Phosphorus 6.4 (H) 2.5 - 4.8 mg/dL CRP (INFLAMMATORY MARKER) Result Value Ref Range CRP (Inflammatory Marker) 127 (H) <=5 mg/L *Note: Due to a large number of results and/or encounters for the requested time period, some results have not been displayed. A complete set of results can be found in Results Review. Results Pending at Discharge: Lab Results Pending at Discharge: None MEDICATION UPDATES AT DISCHARGE START taking these medications INSTRUCTIONS Cefdinir 300 MG Capsule Commonly known as: Omnicef Take 1 Capsule by mouth in the morning and 1 Capsule before bedtime. Do all this for 9 days. doxycycline 100 MG Tablet Take 1 Tablet by mouth in the morning and 1 Tablet before bedtime. Do all this for 9 days. house antacid 400-400-40 MG/5ML suspension Commonly known as: Mi-Acid II Take 15 mL by mouth every 6 hours as needed for Indigestion. hydrOXYzine HCl 25 MG tablet Take 1 Tablet by mouth 3 times a day as needed for Anxiety. pantoprazole 40 MG Tbec Commonly known as: Protonix Take 1 Tablet by mouth daily before breakfast. CHANGE how you take these medications INSTRUCTIONS amitriptyline 25 MG Tablet Commonly known as: Elavil What changed: medication strength how much to take Take 1 Tablet by mouth every night at bedtime. vancomycin 125 MG Capsule Commonly known as: Vancocin What changed: when to take this Take 1 Capsule by mouth every 6 hours for 12 days. CONTINUE taking these medications INSTRUCTIONS Acetaminophen 325 MG Tablet Commonly known as: Tylenol Take 2 Tablets by mouth every 6 hours as needed for Pain, Mild, Pain, Moderate or Pain, Severe. Airborne Chew Take 1 Tablet by mouth every afternoon. * albuterol HFA 108 (90 BASE) MCG/ACT inhaler Inhale 2 Puffs by mouth every 6 hours as needed for Dyspnea. * Albuterol Sulfate (2.5 MG/3ML) 0.083% nebulizer solution Commonly known as: Proventil Inhale 1 Vial via nebulizer every 4 hours as needed for Shortness of Breath. Bisacodyl 10 MG suppository Commonly known as: Dulcolax Administer 1 Suppository into the rectum daily as needed for Constipation. Bumetanide 2 MG Tablet Take 1 Tablet by mouth in the morning and 1 Tablet before bedtime. Cholecalciferol 25 MCG (1000 UT) Tablet Take 50 Tablets by mouth in the morning. Ferrous Sulfate 325 (65 FE) MG Tablet Commonly known as: Feosol Take 1 Tablet by mouth daily with breakfast. Fleet Saline Enema 7-19 GM/197ML Enem Administer 1 Each into the rectum as needed for Constipation (for no bowel movement by the end of the following shift after administration of suppository). fluticasone 50 MCG/ACT nasal spray Commonly known as: Flonase Administer 1 Ramona into nostril in the morning. folic acid 1 MG Tablet Take 1 Tablet by mouth in the morning. insulin aspart 100 UNIT/ML injection Commonly known as: NovoLOG Glucose 80-150 (units): 0 Glucose 151-200 (units): 2 Glucose 201-250 (units): 4 Glucose 251-300 (units): 6 Glucose greater than 300 (units): 8 Insulin Glargine 100 UNIT/ML injection Commonly known as: Lantus Inject 10 Units under the skin at bedtime. levothyroxine 175 MCG Tablet Commonly known as: Levoxyl Take 1 Tablet by mouth in the morning. (at least 30 min prior to breakfast or other meds). LiquaCel Liqd Take 30 mL by mouth in the morning and 30 mL before bedtime. Loratadine 5 MG Tabs Commonly known as: Claritin Take 1 Tablet by mouth in the morning. melatonin 3 MG Tablet Take 1 Tablet by mouth at bedtime. milk of magnesia 400 MG/5ML suspension Take 30 mL by mouth daily as needed for Constipation. Nitroglycerin 0.4 MG Subl Commonly known as: Nitrostat Place 1 Tablet under the tongue every 5 minutes as needed for Pain, Chest (notify MD if no relief after 3 tabs.). omeprazole 20 MG Cpdr Commonly known as: PriLOSEC Take 1 Capsule by mouth daily before breakfast. ondansetron 4 MG Tablet Commonly known as: Zofran Take 1 Tablet by mouth every 8 hours as needed for Nausea. Polyethylene Glycol 3350 packet Commonly known as: Miralax Take 1 Packet by mouth daily as needed for Constipation. senna-docusate 8.6-50 MG per tablet Commonly known as: Senokot-S Take 1 Tablet by mouth 2 times a day as needed for Constipation. Simethicone 80 MG Tablet Commonly known as: Bicarsim Take 2 Tablets by mouth 2 times a day as needed for Gas or Other (indigestion). Vitamin B-12 500 MCG Lozg Take 500 mcg by mouth in the morning. * This list has 2 medication(s) that are the same as other medications prescribed for you. Read thedirections carefully, and ask your doctor or other care provider to review them with you. STOP taking these medications amLODIPine 2.5 MG Tablet Commonly known as: Norvasc Gabapentin 100 MG Capsule Commonly known as: Neurontin meropenem IV (AMBULATORY) Commonly known as: Merrem metOLazone 2.5 MG Tablet Commonly known as: Zaroxolyn Simvastatin 40 MG Tablet Commonly known as: Zocor traMADol 50 MG Tablet Commonly known as: Ultram SCHEDULED FOLLOW-UP: Future Appointments Appt Date/Time Provider Department 11/28/2023 2:45 PM [facility] Vascular Lab, [facility] 12/25/2023 10:00 AM Joslyn Barney MD Nephrology, [facility] Other Information Indwelling Devices: LINES ALL Duration Urethral Catheter Regular catheter 12 days Peripheral Line Right Antecubital 22 Gauge 7 days Peripheral Line Left Antecubital 22 Gauge 2 days Vital Signs (last recorded): Most Recent Systolic BP: 183 mmHg (11/28/23 1117) Most Recent Diastolic BP: 65 mmHg (11/28/23 1117) Pulse: 68 (11/28/23 1117) Resp: 18 (11/28/23 1117) Most Recent Temperature: 36.61 C (11/28/23 1117) Weight: 107.5 kg (236 lb 15.9 oz) (11/28/23 0600) SpO2: 100 % (11/28/23 1117) O2 flow rate: 1.5 L/MIN (11/28/23 111) Allergies: Clarithromycin, Dextromethorphan, Doxylamine, [id number]-mc-[id number], Amoxicillin,Food (see comments), Latex, and Sulfa antibiotics Activity: as tolerated Diet: age appropriate diet Code Status: Full Code Condition on Discharge: stable Isolation status: None Cognition: normal HOSPITAL CONSULTS ORDERED: GASTROENTEROLOGY CONSULT IP CARDIOLOGY CONSULT IP WOUND CONSULT IP PODIATRY CONSULT IP WOUND CONSULT IP NEPHROLOGY CONSULT IP ADULT PHYSICAL THERAPY CONSULT IP ADULT OCCUPATIONAL THERAPY CONSULT IP INFECTIOUS DISEASE CONSULT IP REFERRING PHYSICIAN: REF: SELF NO STRE[address] ADDRESS AVAILABLE PRIMARY CARE PROVIDER: PCP: Paco Cordero MD [address] / [place] [address] (office) [phone] (fax) Note: To contact a physician responsible for this patients hospital care, please call [employer] [phone]. I spent a total of 45 minutes coordinating, documenting, and providing care for this patient excluding time spent in the performance of separately billed services. documented in this encounter Discharge Instructions * Discharge Instr - AVS* Renzo Diop MD - 11/23/2023 12:29 PM EDT Discharge Date: 11/28/2023 Brief summary of inpatient care: Alexandria Smith was admitted to [facility] on 11/16/2023 with chief complaint altered mental status, pale, abdominal pain, diarrhea from SNF, name - vazquez anand . The primary diagnosis at discharge was Severe sepsis with acute organ dysfunction (PERLITA on CKD4) secondary to cellulitis (RLE, sacrum pressure wound). Elevated troponin's in the condition of acute anemia Acute on chronic anemia s/p 2 units PRBCs, Ritacrit 2000 U SC on 11/19. Acute metabolic encephalopathy likely related with severe anemia with polypharmacy History of C.diff diarrhea Chronic OM of right heel Rt posterior thigh redness likely from pressure injury than cellulitis. PERLITA on CKD 4 Anxiety Type 2 DM Unstagable injury in sacrum Moist associated skin damage to gluteal cleft. Posterior right thigh demercation . Alexandria Smith is being discharged to [facility]. The [facility] physician(s) at the time of discharge included: Renzo Diop MD To reach this Provider Sunday through Sunday (8:00 AM to 4:30 PM) for any questions or test results: Call [phone] For after-hours concerns: Call [phone] and have your provider paged, or the provider electric motor controls assembler for the Department of [facility] paged. Inpatient test results pending: none Operations & Procedures: none Code Status: Full Code Advance Directive Documentation: Advance Directive Does the Patient have an Advance Directive? Yes Diet: adult renal non dialysis diet, fluid restriction less than 2 L per day Activity: As tolerated Alexandria should continue the following therapies: Physical Therapy and Occupational Therapy Indwelling Urinary Bladder Catheter Care: Prevent infection. Always wash your hands before handling your catheter, bag or tubing. Cleaning your skin and tubing: Clean the skin near the catheter with soap and water. Wash your genital area from front to back. Wash the catheter tubing. Always wash the catheter in the direction away from your body. You will be told when and how to change your bag and tubing. Dont try to remove the catheter by yourself. You may shower with the catheter in place. Emptying/Changing the bag Wash your hands. Remove the stopper on the bag. Drain the bag into the toilet or a measuring container. Dont let the tip of the drainage tube touch anything, including your fingers. When the bag is empty, clean the tip of the drainage tube with an alcohol wipe. Clamp the tube. Clean the tip of the drainage tube with alcohol. Reinsert the tube into the pocket on the drainage bag/ Replace the stopper. Wound Care: Keep the wound area clean and dry. Wash your hands before changing the dressing. If you need to change the dressing or care for your wound, follow your doctors specific instructions. Ask your doctor about when it is safe to shower, bathe, or soak in clean water. Never use contaminated water or have pets near your wound. Additional Precautions: fall precaution Isolation Status: Enteric Mentation at Discharge: normal Future Studies Required: BMP AND CBC in 3 days. Respiratory Support at Discharge: oxygen at 2 L : setting - 24 hours PRIMARY CARE PROVIDER: PCP: Paco Cordero MD [address] / [place] [phone] (office) [phone] (fax) Special Instructions: End date for medications including antibiotics and anticoagulants: see below DIABETES EDUCATION Meal Planning: Eat 3 meals per day Do not skip meals - Try to eat 4 to 5 hours apart Do not snack unless discussed with a doctor, dietitian or master certified rv technician Blood Glucose Monitoring: Check blood glucoses [...] are not relieved, call your doctor - Paco Cordero MD High Blood Glucose (Hyperglycemia) - what to do: If blood glucose is greater than 300 Drink 12 oz of water every 15 minutes Test for urine ketones if instructed In 30 minutes, wash your hands and again test your blood sugar Call your doctor - Paco Cordero MD if results are still above 300 Medications: Please review all medications. If you have any questions please consult your physician. - Call your primary care physician or seek medical attention if change in mental status, pale, decrease peripheral perfusion . Please have the patient return to the Emergency Department for any of the following: chest pain, chest pressure, chest tightness, difficulty breathing. The patient should not smoke or use tobacco products in any way! Discontinue gabapentin,tramadol, simvastatin due to jerk movements and mental status change Decrease Elavil to 25 mg at bed time to avoid jerk movement. House antacid 15 ml every 6 hours as needed for nausea, indigestion. Add pantoprazole 40 mg daily before breakfast for acid reflux. Please finish the course of PO vancomycin 125 mg every 6 hourly for c.diff diarrhea. Hydroxyzine 25 mg 1 tablet 3 times a day as needed for anxiety, please hold it if you are confused. Hold metolazone due to acute kidney injury due to ATN Zofran 4 mg every 6 hours as needed for nausea. PO OMNICEF AND DOXY FOR 9 DAYS For Right thigh cellulitis. documented in this encounter Progress Notes * Renzo Diop MD - 11/27/2023 7:16 PM EDT Images from the original note were not included. [facility] [id number] SUMMARY: 63 yo F with morbid obesity BMI 45.09, stage 4 CKD, HTN, DM2, fibromyalgia, hypothyroid, chronic anemia with baseline Hb between 7 to 8, HFpEF, chronically on 2 L NC, C.diff infection on 11/05, OM of right heel ( pseudomonas ) recently completed meropenem on 11/13/23 who was admitted from [facility] for severe sepsis with acute organ dysfunction (PERLITA on CKD4) secondary likely secondary tocellulitis (RLE, sacrum pressure wound). INTERVAL HISTORY: Patient was seen and evaluated earlier this morning. She appears to be in better spirits today. Shereports improvement in the discomfort in her right thigh area. Objective Physical Exam Most Recent Vital Signs: BP: 152 mmHg/76 mmHg (11/27/23 1420) Pulse: 72 (11/27/23 1604) Resp: 20 (11/27/23 142) Temp: 36.22 C (11/27/23 142) Temp Summary: Temp Min: 36 C (96.8 F) Max: 36.5 C (97.7 F) SpO2: 100 % (11/27/231419) O2 flow rate: 1.5 L/MIN (11/27/231419) Supplemental O2 Delivery: Nasal Cannula (11/27/231419) Constitutional: no acute distress HEENT: normal: normocephalic, atraumatic; no masses, tenderness, or adenopathy CV: S1 S2 + Chest: normal respiratory effort, (+)bilateral breath sounds are present ,no wheezing, no rhonchi Abdomen: soft, tenderness on right side, BS+ Extremities: (+) right medial and posterior thigh redness/induration reduced. right heel on dressing. Skin: warm, dry, intact, (+) lesion unstageable pressure injury to sacrum (dressing in place), gluteal cleft, posterior inner thigh red/indurated/focal necrotic area. Right heel on dressing Urethral Catheter Regular catheter (Active) Number of days: 11 Peripheral Line Right Antecubital 22 Gauge (Active) Number of days: 7 Peripheral Line Left Antecubital 22 Gauge (Active) Number of days: 1 STUDIES: Encounter Orders Labs and other studies reviewed with pertinent findings noted below: Recent Results (from the past 24 hour(s)) GLUCOSE METER, POINT OF CARE Collection Time: 11/27/23 7:35 AM Result Value Ref Range GLUCOSE - POCT 93 70 - 120 mg/dL CBC Collection Time: 11/27/23 8:49 AM Result Value Ref Range WBC 14.35 (H) 4.00 - 10.80 K/uL RBC 3.30 3.85 - 5.15 M/uL HGB 9.3 (L) 12.0 - 15.3 g/dL HCT 29.2 (L) 36.0 - 45.2 % MCV 88.5 81.5 - 97.5 fL MCH 28.2 27.0 - 34.0 pg MCHC 31.8 32.0 - 36.0 g/dL RDW 14.6 11.5 - 15.5 % PLT 580 (H) 140 - 400 K/uL MPV 9.7 6.6 - 11.1 fL nRBCs 0 <=0 /100 WBCs BASIC METABOLIC PANEL Collection Time: 11/27/23 8:49 AM Result Value Ref Range BUN 87 (H) 6 - 20 mg/dL CREATININE 2.1 (H) 0.5 - 1.0 mg/dL EGFR 26 (L) >=60 mL/min SODIUM 132 (L) 135 - 146 mmol/L POTASSIUM 4.7 3.5 - 5.1 mmol/L CHLORIDE 93 (L) 98 - 107 mmol/L CO2 24 22 - 32 mmol/L ANION GAP 15 7 - 15 mmol/L GLUCOSE 108 70 - 120 mg/dL CALCIUM 9.7 8.4 - 10.2 mg/dL GLUCOSE METER, POINT OF CARE Collection Time: 11/27/23 11:25 AM Result Value Ref Range GLUCOSE - POCT 169 (H) 70 - 120 mg/dL GLUCOSE METER, POINT OF CARE Collection Time: 11/27/23 4:52 PM Result Value Ref Range GLUCOSE - POCT 168 (H) 70 - 120 mg/dL ] Assessment and Plan IMPRESSION : Principal Problem: Severe sepsis with acute organ dysfunction ([facility]) Active Problems: Obesity, morbid (more than 100 lbs over ideal weight or BMI > 40) ([facility]) Anxiety Acute hyponatremia Anemia in stage 4 chronic kidney disease ([facility]) Lethargy Fever Diarrhea Black stools Dizziness Fibromyalgia Acute osteomyelitis of calcaneum, right ([facility]) Pressure injury of sacral region, unstageable ([facility]) Pain in both thighs PERLITA (acute kidney injury) ([facility]) RBBB (right bundle branch block) LAFB (left anterior fascicular block) Accelerated junctional rhythm Redness and swelling of thigh Pressure injury of sacral region, stage 3 ([facility]) Bedridden Right sided abdominal pain Resolved Problems: * No resolved hospital problems. * DIFFERENTIAL AND PLAN: - patient appears to be having general discomfort and not feeling well. Her CBC continues to be mildly elevated, her platelets are up trending, her CRP also is up trending. No fevers noted. Her procalcitonin remains flat at 0.16 range. Given persistent elevation in WBC count, and lesions noted in the right inner thigh decision made to initiate the patient on cellulitis treatment with IV Rocephin and p.o. doxycycline. WBC count remains, but stable in the mid 14. Platelets continue to up trend. -I obtained a nonvascular ultrasound of the right thigh area, it did not show any focal fluid collection. - We will continue oral vancomycin for C diff infection. - PERLITA on CKD, appears to be stable/improving. Continue bumex as ordered. - hemoglobin is stable. - continue other home medications as ordered. - plan DC in 24-48 hours if she continues to remain stable. -of note patient has not been on VT prophylaxis due to having initial low hemoglobin, and concern for bleeding. Since she has been stable in terms of hemoglobin over the last few days, and since she is continuing to have lower extremity edema well as erythema the right thigh, the fact that her inflammatory markers are also elevated I think it is prudent to initiate VTE prophylaxis again as she remains at high-risk for forming DVTs, this was done on . I will also recheck venous duplex of both lower extremities to see if she developed any clots in the last week or so. Of note she did have DVTstudies from 5 days ago, 11/21/2023 which negative for DVTs. PHARMACOLOGIC VTE PROPHYLAXIS: hEParin CODE STATUS: Full Code EXPECTED DISCHARGE DATE: 11/28/2023 I spent a total of 40 minutes coordinating, documenting, and providing care for this patient excluding time spent in the performance of separately billed services. * Renzo Diop MD - 11/26/2023 6:50 PM EDT Images from the original note were not included. [facility] 3B-3022/W SUMMARY: 63 yo F with morbid obesity BMI 45.09, stage 4 CKD, HTN, DM2, fibromyalgia, hypothyroid, chronic anemia with baseline Hb between 7 to 8, HFpEF, chronically on 2 L NC, C.diff infection on 11/05, OM of right heel ( pseudomonas ) recently completed meropenem on 11/13/23 who was admitted from [facility] for severe sepsis with acute organ dysfunction (PERLITA on CKD4) secondary likely secondary tocellulitis (RLE, sacrum pressure wound). INTERVAL HISTORY: Patient was seen and evaluated earlier this morning. She continues to have episodes of significant discomfort especially when she is moved. She gets really tearful after these reports generally not feeling too well. Objective Physical Exam Most Recent Vital Signs: BP: 148 mmHg/51 mmHg (11/26/231606) Pulse: 66 (11/26/23 160) Resp: 20 (11/26/231606) Temp: 36.28 C (11/26/231606) Temp Summary: Temp Min: 36.3 C (97.3 F) Max: 37.2 C (99 F) SpO2: 100 % (11/26/231606) O2 flow rate: 1.5 L/MIN (11/26/231606) Supplemental O2 Delivery: Nasal Cannula (11/26/231606) Constitutional: no acute distress HEENT: normal: normocephalic, atraumatic; no masses, tenderness, or adenopathy CV: S1 S2 + Chest: normal respiratory effort, (+)bilateral breath sounds are present ,no wheezing, no rhonchi Abdomen: soft, tenderness on right side, BS+ Extremities: (+) right medial and posterior thigh redness/induration reduced. right heel on dressing. Skin: warm, dry, intact, (+) lesion unstageable pressure injury to sacrum (dressing in place), gluteal cleft, posterior inner thigh red/indurated/focal necrotic area. Right heel on dressing Urethral Catheter Regular catheter (Active) Number of days: 10 Peripheral Line Right Antecubital 22 Gauge (Active) Number of days: 6 Peripheral Line Left Antecubital 22 Gauge (Active) Number of days: 0 STUDIES: Encounter Orders Labs and other studies reviewed with pertinent findings noted below: Recent Results (from the past 24 hour(s)) GLUCOSE METER, POINT OF CARE Collection Time: 11/25/23 9:24 PM Result Value Ref Range GLUCOSE - POCT 189 (H) 70 - 120 mg/dL CBC Collection Time: 11/26/23 7:07 AM Result Value Ref Range WBC 14.31 (H) 4.00 - 10.80 K/uL RBC 3.16 3.85 - 5.15 M/uL HGB 9.0 (L) 12.0 - 15.3 g/dL HCT 26.9 (L) 36.0 - 45.2 % MCV 85.1 81.5 - 97.5 fL MCH 28.5 27.0 - 34.0 pg MCHC 33.5 32.0 - 36.0 g/dL RDW 14.5 11.5 - 15.5 % PLT 456 (H) 140 - 400 K/uL MPV 10.8 6.6 - 11.1 fL nRBCs 1 (H) <=0 /100 WBCs BASIC METABOLIC PANEL Collection Time: 11/26/23 7:07 AM Result Value Ref Range BUN 93 (H) 6 - 20 mg/dL CREATININE 2.2 (H) 0.5 - 1.0 mg/dL EGFR 25 (L) >=60 mL/min SODIUM 136 135 - 146 mmol/L POTASSIUM CHLORIDE 95 (L) 98 - 107 mmol/L CO2 24 22 - 32 mmol/L ANION GAP 17 (H) 7 - 15 mmol/L GLUCOSE 129 (H) 70 - 120 mg/dL CALCIUM 8.8 8.4 - 10.2 mg/dL GLUCOSE METER, POINT OF CARE Collection Time: 11/26/23 7:27 AM Result Value Ref Range GLUCOSE - POCT 134 (H) 70 - 120 mg/dL BASIC METABOLIC PANEL Collection Time: 11/26/23 10:03 AM Result Value Ref Range BUN 89 (H) 6 - 20 mg/dL CREATININE 2.1 (H) 0.5 - 1.0 mg/dL EGFR 25 (L) >=60 mL/min SODIUM 134 (L) 135 - 146 mmol/L POTASSIUM 4.3 3.5 - 5.1 mmol/L CHLORIDE 95 (L) 98 - 107 mmol/L CO2 24 22 - 32 mmol/L ANION GAP 15 7 - 15 mmol/L GLUCOSE 224 (H) 70 - 120 mg/dL CALCIUM 9.2 8.4 - 10.2 mg/dL GLUCOSE METER, POINT OF CARE Collection Time: 11/26/23 11:25 AM Result Value Ref Range GLUCOSE - POCT 253 (H) 70 - 120 mg/dL GLUCOSE METER, POINT OF CARE Collection Time: 11/26/23 4:28 PM Result Value Ref Range GLUCOSE - POCT 127 (H) 70 - 120 mg/dL Assessment and Plan IMPRESSION : Principal Problem: Severe sepsis with acute organ dysfunction ([facility]) Active Problems: Obesity, morbid (more than 100 lbs over ideal weight or BMI > 40) ([facility]) Anxiety Acute hyponatremia Anemia in stage 4 chronic kidney disease ([facility]) Lethargy Fever Diarrhea Black stools Dizziness Fibromyalgia Acute osteomyelitis of calcaneum, right ([facility]) Pressure injury of sacral region, unstageable ([facility]) Pain in both thighs PERLITA (acute kidney injury) ([facility]) RBBB (right bundle branch block) LAFB (left anterior fascicular block) Accelerated junctional rhythm Redness and swelling of thigh Pressure injury of sacral region, stage 3 ([facility]) Bedridden Right sided abdominal pain Resolved Problems: * No resolved hospital problems. * DIFFERENTIAL AND PLAN: - patient appears to be having general discomfort and not feeling well. Her CBC continues to be mildly elevated, her platelets are up trending, her CRP also is up trending. No fevers noted. Her procalcitonin remains flat at 0.16 range. Given persistent elevation in WBC count, and lesions noted in the right inner thigh decision made to initiate the patient on cellulitis treatment with IV Rocephin and p.o. doxycycline. -I obtained a nonvascular ultrasound of the right thigh area, it did not show any focal fluid collection. - We will continue oral vancomycin for C diff infection. - PERLITA on CKD, appears to be stable/improving. Continue bumex as ordered. - hemoglobin is stable. - continue other home medications as ordered. - plan DC in 24-48 hours if she continues to remain stable. - overall prognosis remains guarded. I remain concerned about the patient's current condition. Hence initiate antibiotics, as her inflammatory markers continued to remain elevated or up trend. -of note patient has been on VT prophylaxis due to having initial low hemoglobin, and concern for bleeding. Since she has been stable in terms of hemoglobin over the last few days, and since she is continuing to have lower extremity edema well as erythema the right thigh, the fact that her inflammatory markers are also elevated I think it is prudent to initiate VTE prophylaxis again as she remains at high-risk for forming DVTs. I will also recheck venous duplex of both lower extremities to see if she developed any clots in the last week or so. Of note she did have DVT studies from 5 days ago,11/21/2023 which negative for DVTs. PHARMACOLOGIC VTE PROPHYLAXIS: hEParin CODE STATUS: Full Code EXPECTED DISCHARGE DATE: 11/28/2023 I spent a total of 45 minutes coordinating, documenting, and providing care for this patient excluding time spent in the performance of separately billed services. * Renzo Diop MD - 11/25/2023 3:02 PM EDT Images from the original note were not included. [facility] 3B-3021/W SUMMARY: 63 yo F with morbid obesity BMI 45.09, stage 4 CKD, HTN, DM2, fibromyalgia, hypothyroid, chronic anemia with baseline Hb between 7 to 8, HFpEF, chronically on 2 L NC, C.diff infection on 11/05, OM of right heel ( pseudomonas ) recently completed meropenem on 11/13/23 who was admitted from [facility] for severe sepsis with acute organ dysfunction (PERLITA on CKD4) secondary likely secondary tocellulitis (RLE, sacrum pressure wound). INTERVAL HISTORY: Patient was seen and evaluated earlier this morning. She appeared to be emotional, and tearful due to ongoing discomfort in her right thigh and generally not feeling well at baseline. Overnight events noted, nursing staff report that patient was mildly confused earlier this morning. This has since i mproved. Objective Physical Exam Most Recent Vital Signs: BP: 167 mmHg/58 mmHg (11/25/23 143) Pulse: 61 (11/25/23 143) Resp: 16 (11/25/231437) Temp: 36.11 C (11/25/23 143) Temp Summary: Temp Min: 36.1 C (97 F) Max: 36.5 C (97.7 F) SpO2: 100 % (11/25/231437) O2 flow rate: 2 L/MIN (11/25/23 0804) Supplemental O2 Delivery: Room Air, None (11/25/231437) Constitutional: no acute distress HEENT: normal: normocephalic, atraumatic; no masses, tenderness, or adenopathy CV: S1 S2 + Chest: normal respiratory effort, (+)bilateral breath sounds are present ,no wheezing, no rhonchi Abdomen: soft, tenderness on right side, BS+ Extremities: (+) right medial and posterior thigh redness/induration reduced. right heel on dressing. Skin: warm, dry, intact, (+) lesion unstageable pressure injury to sacrum, gluteal cleft, posteriorinner thigh red/indurated/focal necrotic area. Right heel on dressing Urethral Catheter Regular catheter (Active) Number of days: 9 Peripheral Line Right Antecubital 22 Gauge (Active) Number of days: 5 STUDIES: Encounter Orders Labs and other studies reviewed with pertinent findings noted below: Recent Results (from the past 24 hour(s)) GLUCOSE METER, POINT OF CARE Collection Time: 11/24/23 4:32 PM Result Value Ref Range Glucose Meter 147 (H) 70 - 120 mg/dL GLUCOSE METER, POINT OF CARE Collection Time: 11/24/23 9:20 PM Result Value Ref Range Glucose Meter 187 (H) 70 - 120 mg/dL CBC Collection Time: 11/25/23 7:00 AM Result Value Ref Range WBC 11.89 (H) 4.00 - 10.80 K/uL RBC 3.45 3.85 - 5.15 M/uL HGB 9.8 (L) 12.0 - 15.3 g/dL HCT 30.9 (L) 36.0 - 45.2 % MCV 89.6 81.5 - 97.5 fL MCH 28.4 27.0 - 34.0 pg MCHC 31.7 32.0 - 36.0 g/dL RDW 14.8 11.5 - 15.5 % PLT 534 (H) 140 - 400 K/uL MPV 9.9 6.6 - 11.1 fL nRBCs 0 <=0 /100 WBCs BASIC METABOLIC PANEL Collection Time: 11/25/23 7:00 AM Result Value Ref Range BUN 99 (H) 6 - 20 mg/dL Creatinine 2.2 (H) 0.5 - 1.0 mg/dL Estimated Glomerular Filtration Rate 24 (L) >=60 mL/min Sodium 133 (L) 135 - 146 mmol/L Potassium 3.4 (L) 3.5 - 5.1 mmol/L Chloride 92 (L) 98 - 107 mmol/L CO2 28 22 - 32 mmol/L Anion Gap 13 7 - 15 mmol/L Glucose 138 (H) 70 - 120 mg/dL Calcium 9.2 8.4 - 10.2 mg/dL CRP (INFLAMMATORY MARKER) Collection Time: 11/25/23 7:00 AM Result Value Ref Range CRP (Inflammatory Marker) 170 (H) <=5 mg/L CK Collection Time: 11/25/23 7:00 AM Result Value Ref Range CK 16 (L) 26 - 192 U/L PROCALCITONIN Collection Time: 11/25/23 7:00 AM Result Value Ref Range Procalcitonin 0.16 (H) <0.10 ng/mL GLUCOSE METER, POINT OF CARE Collection Time: 11/25/23 8:08 AM Result Value Ref Range Glucose Meter 132 (H) 70 - 120 mg/dL GLUCOSE METER, POINT OF CARE Collection Time: 11/25/23 11:21 AM Result Value Ref Range Glucose Meter 221 (H) 70 - 120 mg/dL ] Exam: US Right Limited Joint or Other Non-Vascular Extremity Structure Exam date and time: 11/25/2023 12:05 PM Age: 63 years old Clinical indication: Cellulitis and mass or lump; Upper leg; Right; Additional info: Significant induration and skin necrosis noted in right medial thigh. Evaluate for abscess. TECHNIQUE: Imaging protocol: US right limited joint or other nonvascular extremity structure. Real-time ultrasound with image documentation. COMPARISON: US Lower Arterial 06/04/2023 1:47 PM FINDINGS: Soft tissues: Unremarkable. No loculated collections. Other findings: Ultrasound images demonstrate stranding and diffuse edema. No focal fluid collection or mass identified. Superficial vein in this area appears to have some increased echogenicity associated with it, suggesting either slow flow or some clot formation. IMPRESSION IMPRESSION: 1. No focal fluid collection or mass identified 2. Swelling and edema. Question superficial thrombophlebitis. Assessment and Plan IMPRESSION : Principal Problem: Severe sepsis with acute organ dysfunction ([facility]) Active Problems: Obesity, morbid (more than 100 lbs over ideal weight or BMI > 40) ([facility]) Anxiety Acute hyponatremia Anemia in stage 4 chronic kidney disease ([facility]) Lethargy Fever Diarrhea Black stools Dizziness Fibromyalgia Acute osteomyelitis of calcaneum, right ([facility]) Pressure injury of sacral region, unstageable ([facility]) Pain in both thighs PERLITA (acute kidney injury) ([facility]) RBBB (right bundle branch block) LAFB (left anterior fascicular block) Accelerated junctional rhythm Redness and swelling of thigh Pressure injury of sacral region, stage 3 ([facility]) Bedridden Right sided abdominal pain Resolved Problems: * No resolved hospital problems. * DIFFERENTIAL AND PLAN: - patient appears to be having general discomfort and not feeling well today. His CBC continues to be mildly elevated, her platelets are up trending, her CRP also is up trending. No fevers noted. Herprocalcitonin remains flat at 0.16 range. -I obtained a nonvascular ultrasound of the right thigh area, it did not show any focal fluid collection. -continue to monitor off abx for now. No other signs of infection noted other than elevated crp andplatelets. Appreciate ID input. We will continue oral vancomycin for C diff infection. - PERLITA on CKD, appears to be stable/improving. Continue bumex as ordered. - hemoglobin is stable. - continue other home medications as ordered. - plan DC in 24-48 hours if she continues to remain stable. - overall prognosis remains guarded. I remain concerned about the patient's current condition. As we continue to hold antibiotics, I am still concerned for another source of infection. We will continue to monitor for fever spikes and worsening infection markers. PHARMACOLOGIC VTE PROPHYLAXIS: This patient does not have an active medication from one of the medication groupers. CODE STATUS: Full Code EXPECTED DISCHARGE DATE: 11/27/2023 I spent a total of 40 minutes coordinating, documenting, and providing care for this patient excluding time spent in the performance of separately billed services. * Renzo Diop MD - 11/24/2023 6:42 PM EDT Images from the original note were not included. [facility] 3B-3021/W SUMMARY: 63 yo F with morbid obesity BMI 45.09, stage 4 CKD, HTN, DM2, fibromyalgia, hypothyroid, chronic anemia with baseline Hb between 7 to 8, HFpEF, chronically on 2 L NC, C.diff infection on 11/05, OM of right heel ( pseudomonas ) recently completed meropenem on 11/13/23 who was admitted from [facility] for severe sepsis with acute organ dysfunction (PERLITA on CKD4) secondary likely secondary tocellulitis (RLE, sacrum pressure wound). INTERVAL HISTORY: Patient was seen and evaluated earlier this morning. She reports feeling well and improved since yesterday. She reports she slept well. No new complaints reported. Objective Physical Exam Most Recent Vital Signs: BP: 145 mmHg/61 mmHg (11/24/23 1422) Pulse: 60 (11/24/23 1512) Resp: 16 (11/24/23 1422) Temp: 36 C (11/24/23 1422) Temp Summary: Temp Min: 36 C (96.8 F) Max: 36.4 C (97.5 F) SpO2: 98 % (11/24/23 1434) O2 flow rate: 2 L/MIN (11/24/23 1038) Supplemental O2 Delivery: Room Air, None (11/24/23 143) Constitutional: no acute distress HEENT: normal: normocephalic, atraumatic; no masses, tenderness, or adenopathy CV: S1 S2 + Chest: normal respiratory effort, (+)bilateral breath sounds are present ,no wheezing, no rhonchi Abdomen: soft, tenderness on right side, BS+ Extremities: (+) right medial and posterior thigh redness/induration reduced. right heel on dressing. Skin: warm, dry, intact, (+) lesion unstageable pressure injury to sacrum, gluteal cleft, posteriorinner thigh red/indurated/focal necrotic area. Right heel on dressing Urethral Catheter Regular catheter (Active) Number of days: 8 Peripheral Line Right Antecubital 22 Gauge (Active) Number of days: 4 STUDIES: Encounter Orders Labs and other studies reviewed with pertinent findings noted below: Recent Results (from the past 24 hour(s)) GLUCOSE METER, POINT OF CARE Collection Time: 11/23/23 9:06 PM Result Value Ref Range Glucose Meter 184 (H) 70 - 120 mg/dL CBC Collection Time: 11/23/23 10:31 PM Result Value Ref Range WBC 13.09 (H) 4.00 - 10.80 K/uL RBC 3.34 3.85 - 5.15 M/uL HGB 9.4 (L) 12.0 - 15.3 g/dL HCT 29.4 (L) 36.0 - 45.2 % MCV 88.0 81.5 - 97.5 fL MCH 28.1 27.0 - 34.0 pg MCHC 32.0 32.0 - 36.0 g/dL RDW 14.5 11.5 - 15.5 % PLT 518 (H) 140 - 400 K/uL MPV 10.0 6.6 - 11.1 fL nRBCs 0 <=0 /100 WBCs LACTATE Collection Time: 11/23/23 10:31 PM Result Value Ref Range Lactate 1.1 0.4 - 2.0 mmol/L COMPREHENSIVE METABOLIC PANEL Collection Time: 11/23/23 10:31 PM Result Value Ref Range BUN 106 (H) 6 - 20 mg/dL Creatinine 2.4 (H) 0.5 - 1.0 mg/dL Estimated Glomerular Filtration Rate 22 (L) >=60 mL/min Sodium 132 (L) 135 - 146 mmol/L Potassium 4.0 3.5 - 5.1 mmol/L Chloride 91 (L) 98 - 107 mmol/L CO2 27 22 - 32 mmol/L Anion Gap 14 7 - 15 mmol/L Glucose 186 (H) 70 - 120 mg/dL Albumin 2.3 (L) 3.8 - 5.0 g/dL AST 16 10 - 35 U/L Alkaline Phosphatase 205 (H) 35 - 130 U/L Bilirubin, Total <0.2 <=1.2 mg/dL Calcium 8.9 8.4 - 10.2 mg/dL Protein 6.9 6.0 - 8.3 g/dL ALT 6 (L) 10 - 35 U/L MAGNESIUM Collection Time: 11/23/23 10:31 PM Result Value Ref Range Magnesium 1.8 1.5 - 2.6 mg/dL BASIC METABOLIC PANEL Collection Time: 11/24/23 6:17 AM Result Value Ref Range BUN 101 (H) 6 - 20 mg/dL Creatinine 2.5 (H) 0.5 - 1.0 mg/dL Estimated Glomerular Filtration Rate 21 (L) >=60 mL/min Sodium 134 (L) 135 - 146 mmol/L Potassium 3.4 (L) 3.5 - 5.1 mmol/L Chloride 94 (L) 98 - 107 mmol/L CO2 27 22 - 32 mmol/L Anion Gap 13 7 - 15 mmol/L Glucose 115 70 - 120 mg/dL Calcium 8.8 8.4 - 10.2 mg/dL CRP (INFLAMMATORY MARKER) Collection Time: 11/24/23 6:17 AM Result Value Ref Range CRP (Inflammatory Marker) 146 (H) <=5 mg/L CBC Collection Time: 11/24/23 6:17 AM Result Value Ref Range WBC 11.19 (H) 4.00 - 10.80 K/uL RBC 2.84 3.85 - 5.15 M/uL HGB 8.0 (L) 12.0 - 15.3 g/dL HCT 24.8 (L) 36.0 - 45.2 % MCV 87.3 81.5 - 97.5 fL MCH 28.2 27.0 - 34.0 pg MCHC 32.3 32.0 - 36.0 g/dL RDW 14.5 11.5 - 15.5 % PLT 455 (H) 140 - 400 K/uL MPV 9.7 6.6 - 11.1 fL nRBCs 0 <=0 /100 WBCs DIFFERENTIAL, AUTOMATED Collection Time: 11/24/23 6:17 AM Result Value Ref Range WBC 11.19 (H) 4.00 - 10.80 K/uL Neutrophils % 74.9 40.0 - 75.0 % Lymphocytes % 14.1 (L) 18.0 - 42.0 % Monocytes % 7.3 1.0 - 11.0 % Eosinophils % 2.1 0.0 - 6.0 % Basophils % 0.4 0.0 - 2.0 % Immature Granulocytes % 1.2 0.0 - 2.0 % Absolute Neutrophils 8.39 (H) 1.80 - 7.70 K/uL Absolute Lymphocytes 1.58 1.00 - 4.80 K/ul Absolute Monocytes 0.82 0.00 - 1.10 K/uL Absolute Eosinophils 0.23 0.00 - 0.70 K/uL Absolute Basophils 0.04 0.00 - 0.20 K/uL Absolute Immature Granulocytes 0.13 0.00 - 0.20 K/uL PROCALCITONIN Collection Time: 11/24/23 6:17 AM Result Value Ref Range Procalcitonin 0.14 (H) <0.10 ng/mL GLUCOSE METER, POINT OF CARE Collection Time: 11/24/23 7:34 AM Result Value Ref Range Glucose Meter 106 70 - 120 mg/dL GLUCOSE METER, POINT OF CARE Collection Time: 11/24/23 11:48 AM Result Value Ref Range Glucose Meter 160 (H) 70 - 120 mg/dL GLUCOSE METER, POINT OF CARE Collection Time: 11/24/23 4:32 PM Result Value Ref Range Glucose Meter 147 (H) 70 - 120 mg/dL Recent Cultures (2 Weeks) 11/17/2023 11/16/2023 11/16/2023 11/16/2023 7:55 PM 5:22 PM 1:06 PM 12:36 PM BLOOD CULTURE GROWTH -- -- No growth No growth GASTROINTESTINAL STOOL CULTURE GROWTH No Aeromonas species or Plesiomonas species isolated. -- -- -- QUANT URINE CULTURE GROWTH -- No significant growth -- -- Assessment and Plan IMPRESSION : Principal Problem: Severe sepsis with acute organ dysfunction ([facility]) Active Problems: Obesity, morbid (more than 100 lbs over ideal weight or BMI > 40) ([facility]) Anxiety Acute hyponatremia Anemia in stage 4 chronic kidney disease ([facility]) Lethargy Fever Diarrhea Black stools Dizziness Fibromyalgia Acute osteomyelitis of calcaneum, right ([facility]) Pressure injury of sacral region, unstageable ([facility]) Pain in both thighs PERLITA (acute kidney injury) ([facility]) RBBB (right bundle branch block) LAFB (left anterior fascicular block) Accelerated junctional rhythm Redness and swelling of thigh Pressure injury of sacral region, stage 3 ([facility]) Bedridden Right sided abdominal pain Resolved Problems: * No resolved hospital problems. * DIFFERENTIAL AND PLAN: - today, patient doing better. Lab work shows improvement in sodium, mild hypokalemia as well as improvement in wbc count. CRP is worse however. She is due to get po potassium today. - monitor off abx for now. No other signs of infection noted other than elevated crp. Appreciate IDinput. - PERLITA on CKD, appears to be stable/improving. Continue bumex as ordered. - hemoglobin is stable, lower today, but has been fluctating over the last 2-3 days. - continue other home medications as ordered. - plan DC in 24 hours if she continues to remain stable. - overall prognosis remains guarded. PHARMACOLOGIC VTE PROPHYLAXIS: This patient does not have an active medication from one of the medication groupers. CODE STATUS: Full Code EXPECTED DISCHARGE DATE: 11/23/2023 I spent a total of 45 minutes coordinating, documenting, and providing care for this patient excluding time spent in the performance of separately billed services. * Bernabe Gallagher MD - 11/23/2023 2:59 PM EDT Images from the original note were not included. [facility] 3B-3021/W INTERVAL HISTORY: 63 yo F with morbid obesity BMI 45.09, stage 4 CKD, HTN, DM2, fibromyalgia, hypothyroid, chronic anemia with baseline Hb between 7 to 8, HFpEF, chronically on 2 L NC, C.diff infection on 11/05, OM of right heel ( pseudomonas ) recently completed [facility] 11[facility]13[facility]23 [facility]LITA on CKD4) secondary likely secondary to cellulitis (RLE, sacrum pressure wound). She reported that she is not feeling well, right sided abdominal pain, nausea, doesn't want to eat and drink today . She is afebrile. Denies sob. Intake/Output Summary (Last 24 hours) at 11/23/2023 1500 Last data filed at 11/23/2023 1250 Gross per 24 hour Intake 660 ml Output 1700 ml Net -1040 ml Objective Physical Exam Most Recent Vital Signs: BP: 151 mmHg/52 mmHg (11/23/23 140) Pulse: 59 (11/23/23 1408) Resp: 16 (11/23/231407) Temp: 36 C (11/23/231407) Temp Summary: Temp Min: 35.5 C (95.9 F) Max: 36.2 C (97.2 F) SpO2: 100 % (11/23/231407) O2 flow rate: 2 L/MIN (11/23/231407) Supplemental O2 Delivery: Nasal Cannula (11/23/231407) Constitutional: no acute distress HEENT: normal: normocephalic, atraumatic; no masses, tenderness, or adenopathy CV: S1 S2 + Chest: normal respiratory effort, (+)bilateral breath sounds are present ,no wheezing, no rhonchi Abdomen: soft, tenderness on right side, BS+ Extremities: (+) right posterior thigh redness/induration reduced. right heel on dressing. Skin: warm, dry, intact, (+) lesion unstageable pressure injury to sacrum, gluteal cleft, posteriorinner thigh red/indurated/focal necrotic area. Right heel on dressing : Neuro: alert, oriented to person, place, and time, Glascow Coma Score 15 Psych: normal mood and affect, nonsuicidal, judgement normal, memory normal Urethral Catheter Regular catheter (Active) Number of days: 7 Peripheral Line Right Antecubital 22 Gauge (Active) Number of days: 3 Peripheral Line Right Hand 24 Gauge (Active) Number of days: 2 STUDIES: Encounter Orders Labs and other studies reviewed with pertinent findings noted below: Latest Reference Range & Units 11/23/23 07:34 CBC Rpt ! WBC 4.00 - 10.80 K/uL 12.02 (H) RBC 3.85 - 5.15 M/uL 2.85 HGB 12.0 - 15.3 g/dL 8.1 (L) HCT 36.0 - 45.2 % 25.0 (L) MCV 81.5 - 97.5 fL 87.7 MCH 27.0 - 34.0 pg 28.4 MCHC 32.0 - 36.0 g/dL 32.4 RDW 11.5 - 15.5 % 14.6 PLT 140 - 400 K/uL 459 (H) MPV 6.6 - 11.1 fL 10.4 CBC WITH WBC DIFFERENTIAL Rpt ! Absolute Neutrophils 1.80 - 7.70 K/uL 8.79 (H) Absolute Lymphocytes 1.00 - 4.80 K/ul 1.73 Absolute Monocytes 0.00 - 1.10 K/uL 0.81 Absolute Eosinophils 0.00 - 0.70 K/uL 0.44 Absolute Basophils 0.00 - 0.20 K/uL 0.05 !: Data is abnormal (H): Data is abnormally high (L): Data is abnormally low Rpt: View report in Results Review for more information Latest Reference Range & Units 11/23/23 07:34 Sodium 135 - 146 mmol/L 129 (L) Potassium 3.5 - 5.1 mmol/L 3.4 (L) Chloride 98 - 107 mmol/L 90 (L) CO2 22 - 32 mmol/L 25 BUN 6 - 20 mg/dL 107 (H) Creatinine 0.5 - 1.0 mg/dL 2.6 (H) Estimated Glomerular Filtration Rate >=60 mL/min 20 (L) Anion Gap 7 - 15 mmol/L 14 Glucose 70 - 120 mg/dL 127 (H) Calcium 8.4 - 10.2 mg/dL 8.7 (L): Data is abnormally low (H): Data is abnormally high Assessment and Plan IMPRESSION : Principal Problem: Severe sepsis with acute organ dysfunction (HCC) Active Problems: Obesity, morbid (more than 100 lbs over ideal weight or BMI > 40) ([facility]) Anxiety Acute hyponatremia Anemia in stage 4 chronic kidney disease (HCC) Lethargy Fever Diarrhea Black stools Dizziness Fibromyalgia Acute osteomyelitis of calcaneum, right (HCC) Pressure injury of sacral region, unstageable (HCC) Pain in both thighs PERLITA (acute kidney injury) ([facility]) RBBB (right bundle branch block) LAFB (left anterior fascicular block) Accelerated junctional rhythm Redness and swelling of thigh Pressure injury of sacral region, stage 3 ([facility]) Bedridden Resolved Problems: * No resolved hospital problems. * DIFFERENTIAL AND PLAN: Right sided abdominal pain -get lipase, BMP, lactate, pro calcitonin, cbc -CTAP to rule out acute abdomen -keep NPO except med -start IV compazine prn for nausea in addition to IM Tigan -given one dose of IV Pepcid 20 mg -continue Protonix, house antacid prn for indigestion and acid reflux Severe sepsis -resolved Possible source of infection -skin and soft tissue infection in Rt posterior thigh, sacral pressurewounds. Initially on Meropenem , then to Cefepime ---CRP trends down , pro calcitonin trends down. Discontinue cefepime on 11/22/23. Hx of C.diff positive on 11/05. She haven't finish treatment for C.diff , restart PO vancomycin 125 mg QID for 14 days for history of C.diff infection . Continue enteric isolation until she completed her c.diff treatment. Elevated troponin's in the setting of sepsis , acute anemia, PERLITA on CKD 4. ECHO showed normal LV wall motion. PERLITA on CKD 4-improved. Volume status hard to assess due to her body habitus and poor mobility. Continue Bumex 2 mg bid. Anemia likely related with renal disease -she received 2 units PRBC, Ritacrit 2000 U SC on 11/19. Thrombocytosis -could related with anemia , continue iron supplement. She had loose black green stools. GI consulted on admission but do not think GI bleeding. Continue PO Protonix 40 mg before breakfast Jerk movement-resolved. Discontinue gabapentin and simvastatin. Decrease amitriptyline to 25 mg HS from 75 mg HS. Continue wound care for right heel chronic OM OOB as tolerated Indwelling pruett was placed due to moist associated skin damage in gluteal cleft. Continue off load pressure,repositioning Q 2 H, zinc barrier cream BID and prn. DM 2 ( Hb A 1 c 7.8%) - insulin coverage as directed before meals and at bed time. Hypothyroid -stable , continue levothyroxine Hold discharge to [facility] due to right sided abdominal pain, nausea,. PHARMACOLOGIC VTE PROPHYLAXIS: This patient does not have an active medication from one of the medication groupers. CODE STATUS: Full Code EXPECTED DISCHARGE DATE: 11/23/2023 I spent a total of 55 minutes coordinating, documenting, and providing care for this patient excluding time spent in the performance of separately billed services. * Bernabe Gallagher MD - 11/22/2023 3:01 PM EDT Images from the original note were not included. [facility] 3B-3021/W INTERVAL HISTORY: 63 yo F with morbid obesity BMI 45.09, stage 4 CKD, HTN, DM2, fibromyalgia, hypothyroid, chronic anemia with baseline Hb between 7 to 8, HFpEF, chronically on 2 L NC, C.diff infection on 11/05, OM of right heel ( pseudomonas ) recently completed meropenem on 11/13/23 [facility] (PERLITA on CKD4) secondary likely secondary to cellulitis (RLE, sacrum pressure wound). She feels better. Right posterior thigh redness/induration/pain reduced. She is afebrile. With 2 L NC at rest, SpO2 100% No complaints. Intake/Output Summary (Last 24 hours) at 11/22/2023 1501 Last data filed at 11/22/2023 1456 Gross per 24 hour Intake 389.74 ml Output 1800 ml Net -1410.26 ml Objective Physical Exam Most Recent Vital Signs: BP: 112 mmHg/47 mmHg (11/22/23 115) Pulse: 58 (11/22/23 115) Resp: 18 (11/22/231155) Temp: 36.39 C (11/22/23 115) Temp Summary: Temp Min: 36 C (96.8 F) Max: 36.6 C (97.9 F) SpO2: 100 % (11/22/231155) O2 flow rate: 2 L/MIN (11/22/23 115) Supplemental O2 Delivery: Nasal Cannula (11/22/231155) Constitutional: no acute distress HEENT: normal: normocephalic, atraumatic; no masses, tenderness, or adenopathy CV: S1 S2 + Chest: normal respiratory effort, (+)bilateral breath sounds are present ,no wheezing, no rhonchi Abdomen: normal: soft, bowel sounds normal, no masses, tenderness or organomegaly Extremities: (+) right posterior thigh redness/induration reduced. right heel on dressing. Skin: warm, dry, intact, (+) lesion unstageable pressure injury to sacrum, gluteal cleft, posteriorinner thigh red/indurated/focal necrotic area. Right heel on dressing : Neuro: alert, oriented to person, place, and time, Glascow Coma Score 15 Psych: normal mood and affect, nonsuicidal, judgement normal, memory normal Urethral Catheter Regular catheter (Active) Number of days: 6 Peripheral Line Right Antecubital 22 Gauge (Active) Number of days: 2 STUDIES: Encounter Orders Labs and other studies reviewed with pertinent findings noted below: Latest Reference Range & Units 11/22/23 06:36 CBC Rpt ! WBC 4.00 - 10.80 K/uL 12.34 (H) RBC 3.85 - 5.15 M/uL 2.79 HGB 12.0 - 15.3 g/dL 7.9 (L) HCT 36.0 - 45.2 % 24.2 (L) MCV 81.5 - 97.5 fL 86.7 MCH 27.0 - 34.0 pg 28.3 MCHC 32.0 - 36.0 g/dL 32.6 RDW 11.5 - 15.5 % 14.4 PLT 140 - 400 K/uL 433 (H) MPV 6.6 - 11.1 fL 10.2 CBC WITH WBC DIFFERENTIAL Rpt ! Absolute Neutrophils 1.80 - 7.70 K/uL 9.31 (H) Absolute Lymphocytes 1.00 - 4.80 K/ul 1.48 Absolute Monocytes 0.00 - 1.10 K/uL 0.87 Absolute Eosinophils 0.00 - 0.70 K/uL 0.46 Absolute Basophils 0.00 - 0.20 K/uL 0.03 !: Data is abnormal (H): Data is abnormally high (L): Data is abnormally low Rpt: View report in Results Review for more information Latest Reference Range & Units 11/22/23 06:36 Sodium 135 - 146 mmol/L 131 (L) Potassium 3.5 - 5.1 mmol/L 3.7 Chloride 98 - 107 mmol/L 91 (L) CO2 22 - 32 mmol/L 26 BUN 6 - 20 mg/dL 108 (H) Creatinine 0.5 - 1.0 mg/dL 2.7 (H) Estimated Glomerular Filtration Rate >=60 mL/min 20 (L) Anion Gap 7 - 15 mmol/L 14 Glucose 70 - 120 mg/dL 148 (H) Calcium 8.4 - 10.2 mg/dL 8.3 (L) (L): Data is abnormally low (H): Data is abnormally high Assessment and Plan IMPRESSION : Principal Problem: Severe sepsis with acute organ dysfunction ([facility]) Active Problems: Morbid obesity with BMI of 45.0-49.9, adult ([facility]) Anxiety Acute hyponatremia Anemia in stage 4 chronic kidney disease ([facility]) Lethargy Fever Diarrhea Black stools Dizziness Fibromyalgia Acute osteomyelitis of calcaneum, right ([facility]) Pressure injury of sacral region, unstageable ([facility]) Pain in both thighs PERLITA (acute kidney injury) ([facility]) RBBB (right bundle branch block) LAFB (left anterior fascicular block) Accelerated junctional rhythm Resolved Problems: * No resolved hospital problems. * DIFFERENTIAL AND PLAN: Severe sepsis -resolved Possible source of infection -UA, skin and soft tissue infection in Rt posterior thigh, sacral pressure wounds. Initially on Meropenem , then to Cefepime ---CRP trends down , pro calcitonin trends down. Hx of C.diff positive on 11/05. She haven't finish treatment for C.diff , restart PO vancomycin 125 mg QID for 14 days for history of C.diff infection . Continue enteric isolation until she completed her c.diff treatment. Elevated troponin's in the setting of sepsis , acute anemia, PERLITA on CKD 4. ECHO showed normal LV wall motion. PERLITA on CKD 4-improved. Volume status hard to assess due to her body habitus and poor mobility. Continue Bumex 2 mg bid. Anemia likely related with renal disease -she received 2 units PRBC, Ritacrit 2000 U SC on 11/19. Thrombocytosis -could related with anemia , continue iron supplement. She had loose black green stools. GI consulted on admission but do not think GI bleeding. Continue PO Protonix 40 mg before breakfast Jerk movement-resolved. Discontinue gabapentin and simvastatin. Decrease amitriptyline to 25 mg HS from her baseline 75 mg HD. Continue wound care for right heel chronic OM OOB as tolerated Indwelling pruett was placed due to moist associated skin damage in gluteal cleft. Continue off load pressure,repositioning Q 2 H, zinc barrier cream BID and prn. DM 2 ( Hb A 1 c 7.8%) - insulin coverage as directed before meals and at bed time. Hypothyroid -stable , continue levothyroxine Discharge plan to SNF, pending insurance authorization. PHARMACOLOGIC VTE PROPHYLAXIS: This patient does not have an active medication from one of the medication groupers. CODE STATUS: Full Code EXPECTED DISCHARGE DATE: 11/23/2023 I spent a total of 55 minutes coordinating, documenting, and providing care for this patient excluding time spent in the performance of separately billed services. * Thao Larson RN - 11/21/2023 11:33 PM EDT Nursing Critical Care Response Note [address] [id number] Name: Alexandria Smith Date: 11/21/2023 Time: 11:33 PM Event Location: [facility], Unit Area: 3b In the role of the Critical Response Nurse I was involved in the care of this patient. Method of notification to the critical care response nurse: Unit call/request for assistance Reason for notification or follow up: Vascular access Observations/Interventions/Assessment: PIV Outcome/Plan N/a * Bernabe Gallagher MD - 11/21/2023 12:21 PM EDT Images from the original note were not included. [facility] 3B-3021/W 63 yo F with morbid obesity BMI 45.09, stage 4 CKD, HTN, DM2, fibromyalgia, hypothyroid, chronic anemia with baseline Hb between 7 to 8, HFpEF, chronically on 2 L NC, C.diff infection on 11/05, OM of right heel ( pseudomonas ) recently completed meropenem on 11/13/23 [facility] with [facility] (PERLITA on CKD4) secondary likely secondary to cellulitis (RLE, sacrum pressure wound). INTERVAL HISTORY: Mental status back to her baseline. She reported pain in right posterior thigh. She is afebrile. Denies nausea, vomiting. She needs 2-3 persons assists to transfer from bed to the chair. Intake/Output Summary (Last 24 hours) at 11/21/2023 1230 Last data filed at 11/21/2023 1046 Gross per 24 hour Intake 360.64 ml Output 1700 ml Net -1339.36 ml Objective Physical Exam Most Recent Vital Signs: BP: 114 mmHg/59 mmHg (11/21/23731) Pulse: 61 (11/21/23731) Resp: 18 (11/21/23731) Temp: 36.11 C (11/21/23731) Temp Summary: Temp Min: 36 C (96.8 F) Max: 36.4 C (97.5 F) SpO2: 100 % (11/21/23731) O2 flow rate: 2 L/MIN (11/21/23854) Supplemental O2 Delivery: Nasal Cannula (11/21/23854) Constitutional: no acute distress HEENT: normal: normocephalic, atraumatic; no masses, tenderness, or adenopathy CV: S1 S2 + Chest: normal respiratory effort, (+)bilateral breath sounds are present ,no wheezing, no rhonchi Abdomen: normal: soft, bowel sounds normal, no masses, tenderness or organomegaly Extremities: (+) right posterior thigh indurated,red, focal necrotic area , right heel pn dressing Skin: warm, dry, intact, (+) lesion unstageable pressure injury to sacrum, gluteal cleft, posteriorinner thigh red/indurated/focal necrotic area. Right heel on dressing : Neuro: alert, oriented to person, place, and time, Glascow Coma Score 15 Psych: normal mood and affect, nonsuicidal, judgement normal, memory normal Urethral Catheter Regular catheter (Active) Number of days: 5 Peripheral Line Right Antecubital 22 Gauge (Active) Number of days: 1 STUDIES: Encounter Orders Labs and other studies reviewed with pertinent findings noted below: Latest Reference Range & Units 11/21/23 06:59 CBC Rpt ! WBC 4.00 - 10.80 K/uL 11.93 (H) RBC 3.85 - 5.15 M/uL 2.70 HGB 12.0 - 15.3 g/dL 7.6 (L) HCT 36.0 - 45.2 % 23.6 (L) MCV 81.5 - 97.5 fL 87.4 MCH 27.0 - 34.0 pg 28.1 MCHC 32.0 - 36.0 g/dL 32.2 RDW 11.5 - 15.5 % 14.5 PLT 140 - 400 K/uL 437 (H) MPV 6.6 - 11.1 fL 10.3 !: Data is abnormal (H): Data is abnormally high (L): Data is abnormally low Rpt: View report in Results Review for more information Latest Reference Range & Units 11/21/23 06:59 Sodium 135 - 146 mmol/L 130 (L) Potassium 3.5 - 5.1 mmol/L 3.7 Chloride 98 - 107 mmol/L 90 (L) CO2 22 - 32 mmol/L 27 BUN 6 - 20 mg/dL 109 (H) Creatinine 0.5 - 1.0 mg/dL 2.6 (H) Estimated Glomerular Filtration Rate >=60 mL/min 20 (L) Anion Gap 7 - 15 mmol/L 13 Glucose 70 - 120 mg/dL 181 (H) Calcium 8.4 - 10.2 mg/dL 8.2 (L) (L): Data is abnormally low (H): Data is abnormally high LE venous doppler -pending Assessment and Plan IMPRESSION : Principal Problem: Severe sepsis with acute organ dysfunction (HCC) Active Problems: Morbid obesity with BMI of 45.0-49.9, adult (HCC) Anxiety Acute hyponatremia Anemia in stage 4 chronic kidney disease (HCC) Lethargy Fever Diarrhea Black stools Dizziness Fibromyalgia Acute osteomyelitis of calcaneum, right (HCC) Pressure injury of sacral region, unstageable (HCC) Pain in both thighs PERLITA (acute kidney injury) ([facility]) RBBB (right bundle branch block) LAFB (left anterior fascicular block) Accelerated junctional rhythm Resolved Problems: * No resolved hospital problems. * DIFFERENTIAL AND PLAN: Severe sepsis -resolved Possible source of infection -UA, skin and soft tissue infection in Rt posterior thigh, sacral pressure wounds. Initially on Meropenem , then to Cefepime ---CRP trends down , pro calcitonin trends down. Hx of C.diff positive on 11/05. She haven't finish treatment for C.diff , restart PO vancomycin 125 mg QID for 14 days for history of C.diff infection . Continue enteric isolation until she completed her c.diff treatment. Elevated troponin's in the setting of sepsis , acute anemia, PERLITA on CKD 4. ECHO showed normal LV wall motion. PERLITA on CKD 4-improved. Volume status hard to assess due to her body habitus and poor mobility. Continue Bumex 2 mg bid. Anemia likely related with renal disease -she received 2 units PRBC, Ritacrit 2000 U SC on 11/19. Thrombocytosis -could related with anemia , continue iron supplement. She had loose black green stools. GI consulted on admission but do not think GI bleeding. Continue PO Protonix 40 mg before breakfast Jerk movement-resolved. Discontinue gabapentin and simvastatin. Decrease amitriptyline to 25 mg HS from her baseline 75 mg HD. Continue wound care for right heel chronic OM OOB as tolerated Indwelling pruett was placed due to moist associated skin damage in gluteal cleft. Continue off load pressure,repositioning Q 2 H, zinc barrier cream BID and prn. Discharge plan to SNF since her acute illness resolved. PHARMACOLOGIC VTE PROPHYLAXIS: This patient does not have an active medication from one of the medication groupers. CODE STATUS: Full Code EXPECTED DISCHARGE DATE: 11/21/2023 I spent a total of 55 minutes coordinating, documenting, and providing care for this patient excluding time spent in the performance of separately billed services. * Rickie Jara MD - 11/20/2023 1:17 PM EDT Images from the original note were not included. [facility] 3B-3021/W 63 yo F with morbid obesity BMI 45.09, stage 4 CKD, HTN, DM2, fibromyalgia, hypothyroid, chronic anemia with baseline Hb between 7 to 8, HFpEF, chronically on 2 L NC, C.diff infection on 11/05, OM of right heel ( pseudomonas ) recently completed meropenem on 11/13/23 [facility] (PERLITA on CKD4) secondary likely secondary to cellulitis (RLE, sacrum pressure wound). INTERVAL HISTORY: Resting comfortably this morning. No changes. Pain better controlled. Intake/Output Summary (Last 24 hours) at 11/20/2023 1318 Last data filed at 11/20/2023 1247 Gross per 24 hour Intake 600.38 ml Output 1100 ml Net -499.62 ml Intake/Output Summary (Last 24 hours) at 11/19/2023 1126 Last data filed at 11/19/2023 0903 Gross per 24 hour Intake 99.68 ml Output 3300 ml Net -3200.32 ml Intake/Output Summary (Last 24 hours) at 11/18/2023 1058 Last data filed at 11/18/2023 0905 Gross per 24 hour Intake 730.24 ml Output 2600 ml Net -1869.76 ml Wt Readings from Last 5 Encounters: 11/20/23 112.9 kg (248 lb 12.8 oz) 11/13/23 109.2 kg (240 lb 12.8 oz) 10/09/23 125.8 kg (277 lb 5.4 oz) 09/17/23 133.8 kg (294 lb 14.4 oz) 08/31/23 134.4 kg (296 lb 4.8 oz) Objective Physical Exam Most Recent Vital Signs: BP: 148 mmHg/61 mmHg (11/20/23 103) Pulse: 75 (11/20/23 103) Resp: 16 (11/20/231029) Temp: 36.22 C (11/20/23 103) Temp Summary: Temp Min: 36 C (96.8 F) Max: 36.2 C (97.2 F) SpO2: 100 % (11/20/23 103) O2 flow rate: 2 L/MIN (11/20/23 103) Supplemental O2 Delivery: Nasal Cannula (11/20/231029) Physical Exam Vitals reviewed. Constitutional: Appearance: She is not toxic-appearing. Cardiovascular: Rate and Rhythm: Normal rate. Heart sounds: No friction rub. No gallop. Pulmonary: Effort: Pulmonary effort is normal. No respiratory distress. Breath sounds: No stridor. No wheezing or rales. Abdominal: General: There is no distension. Palpations: Abdomen is soft. Tenderness: There is no abdominal tenderness. There is no guarding. Skin: Comments: Wounds with dressing. C/d/i Neurological: Mental Status: She is alert. Motor: Weakness present. Urethral Catheter Regular catheter (Active) Number of days: 4 Peripheral Line Left Hand 22 Gauge (Active) Number of days: 4 STUDIES: Encounter Orders Labs and other studies reviewed with pertinent findings noted below: Hematology Lab results within last 7 days (see chart for full results) Units 11/20/23 0813 11/19/23 0657 11/19/23 0014 11/18/23 1527 11/18/23 0757 HGB g/dL 8.7* 8.3* 8.2* < > 8.0* HCT % 27.5* 26.1* -- -- 24.5* WBC K/uL 13.03* 11.84* -- -- 12.27* PLT K/uL 437* 452* -- -- 447* MCV fL 89.0 88.2 -- -- 87.2 < > = values in this interval not displayed. Lab results within last 7 days (see chart for full results) Units 11/16/23 1236 INR 1.6* Chemistry Lab results within last 7 days (see chart for full results) Units 11/20/23 0813 11/19/23 0657 11/18/23 0757 Sodium mmol/L 130* 130* 131* Potassium mmol/L 4.0 3.8 3.9 Chloride mmol/L 91* 90* 91* CO2 mmol/L 25 27 25 BUN mg/dL 111* 122* 126* Creatinine mg/dL 2.7* 3.0* 3.2* Glucose mg/dL 150* 164* 128* Lab results within last 7 days (see chart for full results) Units 11/20/23 0813 11/19/23 0657 11/18/23 0757 11/17/23 0559 Magnesium mg/dL 1.8 -- -- 1.8 Calcium mg/dL 8.5 8.4 8.4 8.5 Lab results within last 7 days (see chart for full results) Units 11/16/23 1306 Lactate, Whole Blood mmol/L 1.2 Liver Function Lab results within last 7 days (see chart for full results) Units 11/18/23 0757 11/17/23 0559 11/16/23 1236 Protein g/dL 6.6 6.8 6.3 Bilirubin, Total mg/dL 0.3 0.4 <0.2 Alkaline Phosphatase U/L 217* 224* 223* AST U/L 18 17 20 ALT U/L 10 10 11 Cardiac Markers Lab results within last 7 days (see chart for full results) Units 11/18/23 1705 11/18/23 1315 11/17/23 0559 Troponin T, High Sensitivity ng/L 212* 219* 320* Inflammatory Markers Lab results within last 7 days (see chart for full results) Units 11/16/23 0453 ESR mm/hour 38* Infectious Disease Recent Cultures (2 Weeks) 11/17/2023 11/16/2023 11/16/2023 11/16/2023 7:55 PM 5:22 PM 1:06 PM 12:36 PM BLOOD CULTURE GROWTH -- -- No growth to date No growth to date GASTROINTESTINAL STOOL CULTURE GROWTH No Aeromonas species or Plesiomonas species isolated. -- -- -- QUANT URINE CULTURE GROWTH -- No significant growth -- -- Susceptibility data from last 90 days. Collected Specimen Info Organism Cefepime Ciprofloxacin Levofloxacin Piperacillin Tazobactam Tobramycin 10/02/23 Deep Wound from Heel, Right Pseudomonas aeruginosa S S S S S Imaging No imaging results in the last 72 hours Assessment and Plan IMPRESSION : Principal Problem: Severe sepsis with acute organ dysfunction ([facility]) Active Problems: Morbid obesity with BMI of 45.0-49.9, adult ([facility]) Acute hyponatremia Anemia in stage 4 chronic kidney disease ([facility]) Lethargy Fever Diarrhea Black stools Dizziness Fibromyalgia Acute osteomyelitis of calcaneum, right ([facility]) Pressure injury of sacral region, unstageable ([facility]) Pain in both thighs PERLITA (acute kidney injury) ([facility]) RBBB (right bundle branch block) LAFB (left anterior fascicular block) Accelerated junctional rhythm Resolved Problems: * No resolved hospital problems. * DIFFERENTIAL AND PLAN: UA suggestive of UTI yet urine Cx no growth Blood Cultures NGTD since 11/16/2023 ProCal elevated at 0.22. Will repeat lab Painful sacral pressure injury. Continue wound care. CT L/RLE with cellulitis. Will trend CRP. Up trending 147 --> 176 -->? Will order duplex of LE XR of sacrum not suggestive of osteo; however, might consider MRI of persistent issues. Bronchitis on CXR stable. Pleural effusions stable from prior. Wean off oxygen as tolerated. Continue wound care at right foot for chronic osteo. There is soft tissue swelling on XR. Not currently having abdominal pain, yet CTAP with adenitis. Switched antibiotic to Cefepime today Consider ID consult. Anemia stable. Unlikely persistent acute GI bleed. Will continue to monitor Hgb. Transfuse if Hgb < 7. She is s/p 1 unit pRBC transfusion. Continue to monitor IO's, wts. Renal function improving. Appreciate nephro input. Troponin down trended. Likely demand ischemia on initial presentation of sever anemia. Appreciate cardiology input. Continue MANAGER CRISIS Bumex. Hold metolazone given renal function per nephro. Follow AM labs. Monitor electrolytes and replenish as needed. FR 2L given hyponatremia. MANAGER CRISIS meds where appropriate PHARMACOLOGIC VTE PROPHYLAXIS: This patient does not have an active medication from one of the medication groupers. CODE STATUS: Full Code EXPECTED DISCHARGE DATE: 11/21/2023 I spent a total of 50 minutes coordinating, documenting, and providing care for this patient excluding time spent in the performance of separately billed services. * Robin Childers MD - 11/20/2023 12:55 PM EDT PROGRESS NOTE - Nephrology [facility]-[address] [id number] Name: Alexandria Smith Location: [facility] 3B-3021/W Date: 11/20/2023 SUBJECTIVE: Seen for acute kidney injury on CKD and volume overload. She complains of pain in both legs. Mild shortness of breath. Patient remains weak. Review of systems: All systems were reviewed and negative except as noted in above CURRENT HOSPITAL MEDICATIONS: Current Facility-Administered Medications Medication Dose Route Frequency Provider cefepime in dextrose premix ivpb 2 g 2 g IV Piggyback Once Rickie Jara MD cefepime in dextrose premix ivpb 2 g 2 g IV Piggyback Q12H Rickie Jara MD melatonin tab 3 mg 3 mg Oral HS PRN Alan Lozano PA-C amitriptyline (Elavil) tab 25 mg 25 mg Oral QHS Renzo Diop MD LiquaCel 30 mL Oral BID(AM/PM) Renzo Diop MD pantoprazole (Protonix) tab 40 mg 40 mg Oral Before breakfast Renzo Diop MD Acetaminophen (Tylenol) tab 975 mg 975 mg Oral Q6H PRN Maw, Min MinMD Albuterol Sulfate (Proventil) (2.5 MG/3ML) 0.083% inhalation solution 2.5 mg 2.5 mg Nebulizer Q4H PRN Elvia Mclean PA-C Bumetanide (Bumex) tab 2 mg 2 mg Oral BID(AM/PM) Maw, Min MinMD Cetirizine (ZyrTEC) oral solution 5 mg 5 mg Oral Daily(AM) Maw, Min MinMD CYANOCOBALAMIN (vitamin B-12) tab 500 mcg 500 mcg Oral Daily(AM) Elvia Mclean PA-C dextrose 50% inj 25 mL 25 mL IV Push PRN Maw, Min MinMD dextrose 50% inj 50 mL 50 mL IV Push PRN Maw, Min MinMD Ferrous Sulfate (Feosol) tab 325 mg 325 mg Oral Daily Noon Elvia Mclean PA-C folic acid tab 1 mg 1 mg Oral Daily(AM) Elvia Mclean PA-C glucagon (Glucagen) inj 1 mg 1 mg Intramuscular PRN Maw, Min MinMD Glucose (Glutose 15) 40 % gel 15 g of glucose 15 g of glucose Oral PRN Maw, Min MinMD Glucose (Glutose 15) 40 % gel 30 g of glucose 30 g of glucose Oral PRN Maw, Min MinMD glucose chew tab 16 g 16 g Oral PRN Maw, Min MinMD insulin aspart (NovoLOG) inj Subcutaneous With Meals and HS Maw, Min MinMD Insulin Glargine (Lantus) inj 10 Units 10 Units Subcutaneous HS insulin Maw, Min MinMD levothyroxine (Levoxyl) tab 175 mcg 175 mcg Oral at 0630 Maw, Min MinMD morphine sulfate inj 1 mg 1 mg IV Push Q3H PRN Maw, Min MinMD ondansetron (Zofran) inj 4 mg 4 mg IV Push Q6H PRN Maw, Min MinMD sodium chloride 0.9 % flush/inj 3 mL 3 mL IV Push PRN Maw, Min Min, OBJECTIVE: Most Recent Vital Signs: Intake/Output Summary (Last 24 hours) at 11/20/2023 1255 Last data filed at 11/20/2023 1247 Gross per 24 hour Intake 600.38 ml Output 1100 ml Net -499.62 ml Vital Signs last 24 Hours: Systolic BP: Most Recent Systolic BP Av.5 mmHg Min: 108 mmHg Max: 148 mmHg Temperature: Most Recent Temperature Av.1 C Min: 36 C Max: 36.22 C Pulse: Pulse Av.4 Min: 60 Max: 75 Respirations: Resp Av.5 Min: 16 Max: 18 SpO2: SpO2 Av.8 % Min: 99 % Max: 100 % PHYSICAL EXAM: GENERAL: Alert, in no acute distress. EYES: PERRL, conjunctivae anicteric. ENT: Mucous membranes moist, oropharynx clear. NECK: Supple, no JVD. LYMPH: No cervical or supraclavicular lymphadenopathy. LUNGS: Clear to auscultation bilaterally, no respiratory distress. CARDIAC: Regular rate and rhythm, normal S1/S2, no murmurs, rubs, or gallops. ABDOMEN: Soft, non-tender, non-distended, bowel sounds present. EXT/MSK: No clubbing, cyanosis, 1+ edema. Right foot is wrapped SKIN: No rash, no jaundice. NEURO: No tremor, no asterixis. LABS: Lab Results Component Value Date/Time BUN - [facility] 111 (H) 11/20/2023 08:13 AM BUN - [facility] 122 (H) 11/19/2023 06:57 AM BUN - [facility] 126 (H) 11/18/2023 07:57 AM BUN - [facility] 131 (H) 11/17/2023 05:59 AM BUN - [facility] 146 (H) 11/16/2023 12:36 PM BUN - [facility] 10 11/19/2018 09:00 AM BUN - [facility] 19 01/22/2018 09:45 AM BUN - [facility] 39 (H) 02/27/2017 08:30 AM BUN - [facility] 9 (L) 2001 01:52 PM BUN - [facility] 9 (L) 01/14/2001 01:16 PM Lab Results Component Value Date/Time CREATININE - [facility] 2.7 (H) 11/20/2023 08:13 AM CREATININE - [facility] 3.0 (H) 11/19/2023 06:57 AM CREATININE - [facility] 3.2 (H) 11/18/2023 07:57 AM CREATININE - [facility] 3.2 (H) 11/17/2023 05:59 AM CREATININE - [facility] 3.7 (H) 11/16/2023 12:36 PM CREATININE - [facility] 0.9 11/19/2018 09:00 AM CREATININE - [facility] 1.1 (H) 01/22/2018 09:45 AM CREATININE - [facility] 1.3 (H) 02/27/2017 08:30 AM CREATININE - [facility] 0.5 (L) 2001 01:52 PM CREATININE - [facility] 0.4 (L) 01/14/2001 01:16 PM CREATININE, RANDOM URINE - [facility] 78 11/19/2018 09:00 AM CREATININE, RANDOM URINE - [facility] 83 2001 01:52 PM CREATININE, RANDOM URINE - [facility] 88 07/09/2000 02:57 PM CREATININE, RANDOM URINE - [facility] 152 11/03/1998 03:01 PM CREATININE, RANDOM URINE - [facility] 182 09/16/1997 12:05 PM CREATININE-URINE 110 01/17/1996 08:35 AM No components found for: "E GLOM FILT RATE" Lab Results Component Value Date/Time POTASSIUM - [facility] 4.0 11/20/2023 08:13 AM POTASSIUM - [facility] 3.8 11/19/2023 06:57 AM POTASSIUM - [facility] 3.9 11/18/2023 07:57 AM POTASSIUM - [facility] 4.1 11/19/2018 09:00 AM POTASSIUM - [facility] 5.1 01/22/2018 09:45 AM POTASSIUM - [facility] 5.0 02/27/2017 08:30 AM Lab Results Component Value Date/Time HGB 8.7 (L) 11/20/2023 08:13 AM HGB 8.3 (L) 11/19/2023 06:57 AM HGB 8.2 (L) 11/19/2023 12:14 AM HGB 8.0 (L) 11/18/2023 03:27 PM HGB 8.0 (L) 11/18/2023 07:57 AM HGB 6.7 (L) 11/16/2023 01:06 PM HGB 9.6 (L) 10/03/2023 04:36 PM HGB 13.2 12/03/2018 09:22 AM HGB 13.1 11/19/2018 09:00 AM HGB 10.8 (L) 02/27/2017 08:30 AM HGB 14.2 06/29/1999 04:24 PM HGB 14.8 09/16/1997 12:05 PM MICROALBUMIN RATIO Date/Time Value Ref Range Status 01/17/1996 08:35 AM 47. <OR=20 MCG/MG C Final No components found for: "PROTCREATRAT" Lab Results Component Value Date/Time PTH - [facility] 266 (H) 10/01/2023 05:47 AM Lab Results Component Value Date/Time PHOSPHORUS - [facility] 6.4 (H) 11/20/2023 08:13 AM IMPRESSION: This is a 63 year old female with complicated medical history and extensive comorbid disease with a very poor baseline health now admitted with symptomatic anemia worsened kidney functionon background CKD and osteomyelitis of the right heel. She is being seen for worsening renal function. Plan: 1. Acute kidney injury on CKD: Etiology is likely ischemic ATN in setting of chronic osteomyelitis of the right foot. Patient remains volume overloaded. Creatinine slightly better today downtrending to 2.7 from 3 yesterday. Potassium is 4 which is at goal. Continue Bumex 2 mg twice daily. Monitor potassium and supplement as needed -monitor input output 2. Anemia of renal disease: Hemoglobin is 8.7 today. Will give another dose of Ritacrit 05838 units subQ today Appreciate consult; will follow with you. This note was generated with the help of voice recognition software. Please excuse for errors. * Rickie Jara MD - 11/19/2023 11:26 AM EDT Images from the original note were not included. [facility] 3B-3021/W 63 yo F with morbid obesity BMI 45.09, stage 4 CKD, HTN, DM2, fibromyalgia, hypothyroid, chronic anemia with baseline Hb between 7 to 8, HFpEF, chronically on 2 L NC, C.diff infection on 11/05, OM of right heel ( pseudomonas ) recently completed meropenem on 11/13/23 [facility] (PERLITA on CKD4) secondary likely secondary to cellulitis (RLE, sacrum pressure wound). INTERVAL HISTORY: Resting comfortably this morning. Intake/Output Summary (Last 24 hours) at 11/19/2023 1126 Last data filed at 11/19/2023 0903 Gross per 24 hour Intake 99.68 ml Output 3300 ml Net -3200.32 ml Intake/Output Summary (Last 24 hours) at 11/18/2023 1058 Last data filed at 11/18/2023 0905 Gross per 24 hour Intake 730.24 ml Output 2600 ml Net -1869.76 ml Wt Readings from Last 5 Encounters: 11/18/23 114.3 kg (252 lb) 11/13/23 109.2 kg (240 lb 12.8 oz) 10/09/23 125.8 kg (277 lb 5.4 oz) 09/17/23 133.8 kg (294 lb 14.4 oz) 08/31/23 134.4 kg (296 lb 4.8 oz) Objective Physical Exam Most Recent Vital Signs: BP: 158 mmHg/79 mmHg (11/19/23899) Pulse: 82 (11/19/23899) Resp: 18 (11/19/23722) Temp: 36.5 C (11/19/23722) Temp Summary: Temp Min: 36.4 C (97.5 F) Max: 36.6 C (97.9 F) SpO2: 100 % (11/19/23722) O2 flow rate: 2 L/MIN (11/19/23902) Supplemental O2 Delivery: Nasal Cannula (11/19/23 0903) Physical Exam Vitals reviewed. Constitutional: Appearance: She is not toxic-appearing. Cardiovascular: Rate and Rhythm: Normal rate. Heart sounds: No friction rub. No gallop. Pulmonary: Effort: Pulmonary effort is normal. No respiratory distress. Breath sounds: No stridor. No wheezing or rales. Abdominal: General: There is no distension. Palpations: Abdomen is soft. Tenderness: There is no abdominal tenderness. There is no guarding. Skin: Comments: Wounds with dressing. C/d/i Neurological: Mental Status: She is alert. Motor: Weakness present. Urethral Catheter Regular catheter (Active) Number of days: 3 Peripheral Line Right Hand 20 Gauge (Active) Number of days: 3 Peripheral Line Left Hand 22 Gauge (Active) Number of days: 3 STUDIES: Encounter Orders Labs and other studies reviewed with pertinent findings noted below: Hematology Lab results within last 7 days (see chart for full results) Units 11/19/23 0657 11/19/23 0014 11/18/23 1527 11/18/23 0757 11/17/23 1155 11/17/23 0559 HGB g/dL 8.3* 8.2* 8.0* 8.0* < > 8.1* HCT % 26.1* -- -- 24.5* -- 25.2* WBC K/uL 11.84* -- -- 12.27* -- 13.81* PLT K/uL 452* -- -- 447* -- 444* MCV fL 88.2 -- -- 87.2 -- 86.0 < > = values in this interval not displayed. Lab results within last 7 days (see chart for full results) Units 11/16/23 1236 INR 1.6* Chemistry Lab results within last 7 days (see chart for full results) Units 11/19/23 0657 11/18/23 0757 11/17/23 0559 Sodium mmol/L 130* 131* 132* Potassium mmol/L 3.8 3.9 4.5 Chloride mmol/L 90* 91* 92* CO2 mmol/L 24 BUN mg/dL 122* 126* 131* Creatinine mg/dL 3.0* 3.2* 3.2* Glucose mg/dL 164* 128* 161* Lab results within last 7 days (see chart for full results) Units 11/19/23 0657 11/18/23 0757 11/17/23 0559 Magnesium mg/dL -- -- 1.8 Calcium mg/dL 8.4 8.4 8.5 Lab results within last 7 days (see chart for full results) Units 11/16/23 1306 Lactate, Whole Blood mmol/L 1.2 Liver Function Lab results within last 7 days (see chart for full results) Units 11/18/23 0757 11/17/23 0559 11/16/23 1236 Protein g/dL 6.6 6.8 6.3 Bilirubin, Total mg/dL 0.3 0.4 <0.2 Alkaline Phosphatase U/L 217* 224* 223* AST U/L 18 17 20 ALT U/L 10 10 11 Cardiac Markers Lab results within last 7 days (see chart for full results) Units 11/18/23 1705 11/18/23 1315 11/17/23 0559 Troponin T, High Sensitivity ng/L 212* 219* 320* Inflammatory Markers Lab results within last 7 days (see chart for full results) Units 11/16/23 0453 ESR mm/hour 38* Infectious Disease Recent Cultures (2 Weeks) 11/17/2023 11/16/2023 11/16/2023 11/16/2023 11/05/2023 7:55 PM 5:22 PM 1:06 PM 12:36 PM 3:45 PM BLOOD CULTURE GROWTH -- -- No growth to date No growth to date No growth No growth GASTROINTESTINAL STOOL CULTURE GROWTH No Aeromonas species or Plesiomonas species isolated. -- -- -- -- QUANT URINE CULTURE GROWTH -- No significant growth -- -- -- Susceptibility data from last 90 days. Collected Specimen Info Organism Cefepime Ciprofloxacin Levofloxacin Piperacillin Tazobactam Tobramycin 10/02/23 Deep Wound from Heel, Right Pseudomonas aeruginosa S S S S S Imaging CT LOWER EXTREMITY LEFT WO CONTRAST Result Date: 11/16/2023 IMPRESSION: Diffuse stranding in the subcutaneous tissue of the thigh, especially inner thigh. Findings consistent with inflammatory changes/cellulitis or bruising. No drainable fluid collection identified. PROCEDURE INFORMATION: Exam: CT Left Lower Extremity Exam date andtime: 11/16/2023 4:55 PM Age: 63 years old Clinical indication: Other: Redness inner thigh; Additional info: Redness, induration of right inner thigh; Hip pain; Infection, known or R/O; No hip x-ray result available; Hip pain; Area of interest - ankle/foot TECHNIQUE: Imaging protocol: CT of the left lower extremity without contrast was performed. Radiation optimization: All CT scans at this facility use at least one of these dose optimization techniques: automated exposure control; mA and/or kV adjustment per patient size (includes targeted exams where dose is matched to clinical indication); or iterative reconstruction. COMPARISON: DX XR HIP UNILAT 2-3 VIEWS INCLUDING AP PELVIS 06/01/2023 11:10 AM FINDINGS: Bones/joints: Normal. No acute fracture or dislocation. Soft tissues: Diffuse stranding in the subcutaneous tissue of the thigh, especially inner thigh. Findings consistent with inflammatory changes/cellulitis or bruising. No drainable fluid collection identified. IMPRESSION: Diffusestranding in the subcutaneous tissue of the thigh, especially inner thigh. Findings consistent withinflammatory changes/cellulitis or bruising. No drainable fluid collection identified. THIS DOCUMENT HAS BEEN ELECTRONICALLY SIGNED BY MATTHEW MCMILLAN MD CT LOWER EXTREMITY RIGHT WO CONTRAST Result Date: 11/16/2023 IMPRESSION: Diffuse stranding in the subcutaneous tissue of the thigh, especially inner thigh. Findings consistent with inflammatory changes/cellulitis or bruising. No drainable fluid collection identified. PROCEDURE INFORMATION: Exam: CT Left Lower Extremity Exam date andtime: 11/16/2023 4:55 PM Age: 63 years old Clinical indication: Other: Redness inner thigh; Additional info: Redness, induration of right inner thigh; Hip pain; Infection, known or R/O; No hip x-ray result available; Hip pain; Area of interest - ankle/foot TECHNIQUE: Imaging protocol: CT of the left lower extremity without contrast was performed. Radiation optimization: All CT scans at this facility use at least one of these dose optimization techniques: automated exposure control; mA and/or kV adjustment per patient size (includes targeted exams where dose is matched to clinical indication); or iterative reconstruction. COMPARISON: DX XR HIP UNILAT 2-3 VIEWS INCLUDING AP PELVIS 06/01/2023 11:10 AM FINDINGS: Bones/joints: Normal. No acute fracture or dislocation. Soft tissues: Diffuse stranding in the subcutaneous tissue of the thigh, especially inner thigh. Findings consistent with inflammatory changes/cellulitis or bruising. No drainable fluid collection identified. IMPRESSION: Diffusestranding in the subcutaneous tissue of the thigh, especially inner thigh. Findings consistent withinflammatory changes/cellulitis or bruising. No drainable fluid collection identified. THIS DOCUMENT HAS BEEN ELECTRONICALLY SIGNED BY MATTHEW MCMILLAN MD CT ABD/PELVIS WO IV/ORAL CONTRAST Result Date: 11/16/2023 IMPRESSION: 1. Overall nonobstructive bowel gas pattern. No focal bowel wall thickening identified 2. Nonspecific mild stranding in the right lower quadrant of the mesentery. Shotty mesenteric lymph nodes. Question mild mesenteric adenitis 3. Appendix not definitively identified 4. Small right pleural effusion, decreased from previous 5. Other chronic changes as in findings. THIS DOCUMENT HAS BEEN ELECTRONICALLY SIGNED BY MATTHEW MCMILLAN MD XR FOOT 3 OR MORE VIEWS Result Date: 11/16/2023 IMPRESSION: Subtle irregularity of the bony cortex along the plantar surface of the calcaneus may represent sequelae of known osteomyelitis. Soft tissue swelling. THIS DOCUMENT HAS BEEN ELECTRONICALLY SIGNED BY MATTHEW MCMILLAN MD XR CHEST 1 VIEW Result Date: 11/16/2023 IMPRESSION: No focal lobar consolidation. Question viral process or bronchitis. THIS DOCUMENT HAS BEEN ELECTRONICALLY SIGNED BY MATTHEW MCMILLAN MD XR SACRUM COCCYX MINIMUM 2 VIEWS Result Date: 11/16/2023 IMPRESSION: No gross cortical disruption or bony erosion on the visualized portions of the bony skeleton. Degenerative changes. THIS DOCUMENT HAS BEEN ELECTRONICALLY SIGNED BY MATTHEW MCMILLAN MD Assessment and Plan IMPRESSION : Principal Problem: Severe sepsis with acute organ dysfunction (HCC) Active Problems: Morbid obesity with BMI of 45.0-49.9, adult (HCC) Acute hyponatremia Lethargy Fever Diarrhea Black stools Dizziness Fibromyalgia Acute osteomyelitis of calcaneum, right (HCC) Pressure injury of sacral region, unstageable (HCC) Pain in both thighs PERLITA (acute kidney injury) ([facility]) RBBB (right bundle branch block) LAFB (left anterior fascicular block) Accelerated junctional rhythm Resolved Problems: * No resolved hospital problems. * DIFFERENTIAL AND PLAN: UA suggestive of UTI yet urine Cx no growth Blood Cultures NGTD since 11/16/2023 ProCal elevated at 0.22. Will repeat lab Painful sacral pressure injury. Continue wound care. Will add fentanyl PRN when severe pain. CT L/RLE with cellulitis. Will trend CRP. Up trending 147 --> 176 XR of sacrum not suggestive of osteo; however, might consider MRI of persistent issues. Bronchitis on CXR stable. Pleural effusions stable from prior. Wean off oxygen as tolerated. Continue wound care at right foot for chronic osteo. There is soft tissue swelling on XR. Not currently having abdominal pain, yet CTAP with adenitis. Continue current antibiotic regimen. Will consider ID consult. Anemia stable. Unlikely persistent acute GI bleed. Will continue to monitor Hgb. Transfuse if Hgb < 7. She is s/p 1 unit pRBC transfusion. Continue to monitor IO's, wts. Renal function improving. Troponin down trended. Likely demand ischemia on initial presentation of sever anemia. Appreciate cardiology input. Continue MANAGER CRISIS Bumex. Appreciate nephro input. Hold metolazone given renal function. Follow AM labs. Monitor electrolytes and replenish as needed. FR 2L given hyponatremia. MANAGER CRISIS meds where appropriate PHARMACOLOGIC VTE PROPHYLAXIS: This patient does not have an active medication from one of the medication groupers. CODE STATUS: Full Code EXPECTED DISCHARGE DATE: 11/21/2023 I spent a total of 50 minutes coordinating, documenting, and providing care for this patient excluding time spent in the performance of separately billed services. * Everette Bustos MD - 11/18/2023 4:20 PM EDT PROGRESS NOTE - Nephrology [facility]-[address] [address] Name: Alexandria Smith Location: [facility] 3B-3021/W Date: 11/18/2023 Time: 4:21 PM SUBJECTIVE: No new issues. Labs not much changed. Making urine--1600 ml in 12 hrs. Has pruett. CURRENT HOSPITAL MEDICATIONS: Reviewed OBJECTIVE: Most Recent Vital Signs: BP: 131 mmHg/49 mmHg (11/18/231512) Pulse: 80 (11/18/231512) Resp: 18 (11/18/231512) Temp: 36.39 C (11/18/231512) Temp Summary: Temp Min: 36 C (96.8 F) Max: 36.4 C (97.5 F) SpO2: 100 % (11/18/231512) O2 flow rate: 2 L/MIN (11/18/231512) Supplemental O2 Delivery: Nasal Cannula (11/18/231512) Vital Signs last 24 Hours: Systolic BP: Most Recent Systolic BP Av.8 mmHg Min: 117 mmHg Max: 133 mmHg Temperature: Most Recent Temperature Av.2 C Min: 36 C Max: 36.39 C Pulse: Pulse Av.9 Min: 64 Max: 80 Respirations: Resp Av Min: 18 Max: 18 SpO2: SpO2 Av.6 % Min: 98 % Max: 100 % Physical examination Morbidly obese middle-aged white female who appears chronically ill. She did not follow my command nor answer any questions and she had her eyes closed She is however awake and alert No obvious respiratory distress Blood pressure 100 and 16 x 56 pulse is 72 oxygen saturation 100% Neck is supple can not assess JVD chest bilateral decreased breath sound with poor inspiratory effort CVS S1 and S2 distant no obvious murmur rub or gallop heard Abdomen is morbidly obese some abdominal wall edema Extremities shows 2 to 3+ edema with chronic skin changes LABS: Reviewed IMPRESSION: This is a 63 year old female with complicated medical history and extensive comorbid disease with vilma poor baseline health now admitted with symptomatic anemia worsened kidney function on background CKD can possible infection of unclear source I have been consulted for the following 1. Acute on chronic kidney disease 2. Hyponatremia 3 Hyperkalemia 4. Volume overload 5 Anemia OF CKD --------patient has had multiple recent hospitalization and acute events which makes it very hard to establish a true baseline kidney function. Would call made to creatinine as her baseline. On admission her creatinine was 3.7 and BUN was 146 both of which are significantly more elevated than baseline. Slightly better labs today BUN 126 and creat same 3.2 Na 131. Given this For now Stop metolazone. Continue Bumex same dose. K is normal today It is very hard to assess her true fluid status as it appear she has obesity related lymphedema. Her long-term renal prognosis is quite poor but for the time being it does not appear she needs dialysis but she is not completely out of the danger yet. Hemoglobin was significantly less than her baseline likely secondary to superimposed infection was makes anemia worse. She also has anemia of CKD at baseline. Reviewed gastroenterology note which says no active GI bleeding Give procrit 00958 units Sub q. Both blood and urine C/s negative so can give venofer also 300 mg today. Needs set up with Anemia clinic or get weekly procrit at [facility] Continue daily labs Continue input output charting Continue to avoid nephrotoxic agents including contrast NSAIDs Check appropriate drug level for example of vancomycin and try to keep the level less than 20 For now Stop metolazone. Continue Bumex same dose. Everette uBstos MD * Rickie Jara MD - 11/18/2023 10:39 AM EDT Images from the original note were not included. [facility] 3B-3021/W 63 yo F with morbid obesity BMI 45.09, stage 4 CKD, HTN, DM2, fibromyalgia, hypothyroid, chronic anemia with baseline Hb between 7 to 8, HFpEF, chronically on 2 L NC, C.diff infection on 11/05, OM of right heel ( pseudomonas ) recently completed meropenem on 11/13/23 [facility] (PERLITA on CKD4) secondary likely secondary to cellulitis (RLE, sacrum pressure wound). INTERVAL HISTORY: Complains of severe sacrum pressure pain. Intake/Output Summary (Last 24 hours) at 11/18/2023 1058 Last data filed at 11/18/2023 0905 Gross per 24 hour Intake 730.24 ml Output 2600 ml Net -1869.76 ml Wt Readings from Last 5 Encounters: 11/18/23 114.3 kg (252 lb) 11/13/23 109.2 kg (240 lb 12.8 oz) 10/09/23 125.8 kg (277 lb 5.4 oz) 09/17/23 133.8 kg (294 lb 14.4 oz) 08/31/23 134.4 kg (296 lb 4.8 oz) Objective Physical Exam Most Recent Vital Signs: BP: 123 mmHg/43 mmHg (11/18/23725) Pulse: 64 (11/18/2346) Resp: 18 (11/18/23725) Temp: 36.22 C (11/18/23725) Temp Summary: Temp Min: 36 C (96.8 F) Max: 36.2 C (97.2 F) SpO2: 100 % (11/18/23725) O2 flow rate: 2 L/MIN (11/18/23814) Supplemental O2 Delivery: Nasal Cannula (11/18/23814) Physical Exam Vitals reviewed. Constitutional: Appearance: She is ill-appearing. She is not toxic-appearing. Cardiovascular: Rate and Rhythm: Normal rate. Heart sounds: No friction rub. No gallop. Pulmonary: Effort: Pulmonary effort is normal. No respiratory distress. Breath sounds: No stridor. No wheezing or rales. Abdominal: General: There is no distension. Palpations: Abdomen is soft. Tenderness: There is no abdominal tenderness. There is no guarding. Skin: Comments: Wounds with dressing. C/d/i Neurological: Mental Status: She is alert. Motor: Weakness present. Urethral Catheter Regular catheter (Active) Number of days: 2 Peripheral Line Right Hand 20 Gauge (Active) Number of days: 2 Peripheral Line Left Hand 22 Gauge (Active) Number of days: 2 STUDIES: Encounter Orders Labs and other studies reviewed with pertinent findings noted below: Hematology Lab results within last 7 days (see chart for full results) Units 11/18/23 0757 11/17/23 1155 11/17/23 0559 11/16/23 1835 11/16/23 1236 HGB g/dL 8.0* 8.6* 8.1* < > 6.3* HCT % 24.5* -- 25.2* -- 19.8* WBC K/uL 12.27* -- 13.81* -- 13.86* PLT K/uL 447* -- 444* -- 470* MCV fL 87.2 -- 86.0 -- 88.4 < > = values in this interval not displayed. Lab results within last 7 days (see chart for full results) Units 11/16/23 1236 INR 1.6* Chemistry Lab results within last 7 days (see chart for full results) Units 11/17/23 0559 11/16/23 1236 11/16/23 0453 Sodium mmol/L 132* 129* 132* Potassium mmol/L 4.5 4.8 5.5* Chloride mmol/L 92* 89* 91* CO2 mmol/L 24 23 25 BUN mg/dL 131* 146* 146* Creatinine mg/dL 3.2* 3.7* 3.7* Glucose mg/dL 161* 190* 128* Lab results within last 7 days (see chart for full results) Units 11/17/23 0559 11/16/23 1236 11/16/23 0453 Magnesium mg/dL 1.8 -- -- Calcium mg/dL 8.5 8.2* 7.6* Lab results within last 7 days (see chart for full results) Units 11/16/23 1306 Lactate, Whole Blood mmol/L 1.2 Liver Function Lab results within last 7 days (see chart for full results) Units 11/17/23 0559 11/16/23 1236 11/16/23 0453 Protein g/dL 6.8 6.3 5.4* Bilirubin, Total mg/dL 0.4 <0.2 0.2 Alkaline Phosphatase U/L 224* 223* 244* AST U/L 17 20 24 ALT U/L 10 11 13 Cardiac Markers Lab results within last 7 days (see chart for full results) Units 11/17/23 0559 11/17/23 0014 11/16/23 1408 Troponin T, High Sensitivity ng/L 320* 332* 419* Inflammatory Markers Lab results within last 7 days (see chart for full results) Units 11/16/23 0453 ESR mm/hour 38* Infectious Disease Recent Cultures (2 Weeks) 11/16/2023 11/16/2023 11/16/2023 11/05/2023 5:22 PM 1:06 PM 12:36 PM 3:45 PM BLOOD CULTURE GROWTH -- No growth to date No growth to date No growth No growth QUANT URINE CULTURE GROWTH No significant growth -- -- -- Susceptibility data from last 90 days. Collected Specimen Info Organism Cefepime Ciprofloxacin Levofloxacin Piperacillin Tazobactam Tobramycin 10/02/23 Deep Wound from Heel, Right Pseudomonas aeruginosa S S S S S Imaging CT LOWER EXTREMITY LEFT WO CONTRAST Result Date: 11/16/2023 IMPRESSION: Diffuse stranding in the subcutaneous tissue of the thigh, especially inner thigh. Findings consistent with inflammatory changes/cellulitis or bruising. No drainable fluid collection identified. PROCEDURE INFORMATION: Exam: CT Left Lower Extremity Exam date andtime: 11/16/2023 4:55 PM Age: 63 years old Clinical indication: Other: Redness inner thigh; Additional info: Redness, induration of right inner thigh; Hip pain; Infection, known or R/O; No hip x-ray result available; Hip pain; Area of interest - ankle/foot TECHNIQUE: Imaging protocol: CT of the left lower extremity without contrast was performed. Radiation optimization: All CT scans at this facility use at least one of these dose optimization techniques: automated exposure control; mA and/or kV adjustment per patient size (includes targeted exams where dose is matched to clinical indication); or iterative reconstruction. COMPARISON: DX XR HIP UNILAT 2-3 VIEWS INCLUDING AP PELVIS 06/01/2023 11:10 AM FINDINGS: Bones/joints: Normal. No acute fracture or dislocation. Soft tissues: Diffuse stranding in the subcutaneous tissue of the thigh, especially inner thigh. Findings consistent with inflammatory changes/cellulitis or bruising. No drainable fluid collection identified. IMPRESSION: Diffusestranding in the subcutaneous tissue of the thigh, especially inner thigh. Findings consistent withinflammatory changes/cellulitis or bruising. No drainable fluid collection identified. THIS DOCUMENT HAS BEEN ELECTRONICALLY SIGNED BY MATTHEW MCMILLAN MD CT LOWER EXTREMITY RIGHT WO CONTRAST Result Date: 11/16/2023 IMPRESSION: Diffuse stranding in the subcutaneous tissue of the thigh, especially inner thigh. Findings consistent with inflammatory changes/cellulitis or bruising. No drainable fluid collection identified. PROCEDURE INFORMATION: Exam: CT Left Lower Extremity Exam date andtime: 11/16/2023 4:55 PM Age: 63 years old Clinical indication: Other: Redness inner thigh; Additional info: Redness, induration of right inner thigh; Hip pain; Infection, known or R/O; No hip x-ray result available; Hip pain; Area of interest - ankle/foot TECHNIQUE: Imaging protocol: CT of the left lower extremity without contrast was performed. Radiation optimization: All CT scans at this facility use at least one of these dose optimization techniques: automated exposure control; mA and/or kV adjustment per patient size (includes targeted exams where dose is matched to clinical indication); or iterative reconstruction. COMPARISON: DX XR HIP UNILAT 2-3 VIEWS INCLUDING AP PELVIS 06/01/2023 11:10 AM FINDINGS: Bones/joints: Normal. No acute fracture or dislocation. Soft tissues: Diffuse stranding in the subcutaneous tissue of the thigh, especially inner thigh. Findings consistent with inflammatory changes/cellulitis or bruising. No drainable fluid collection identified. IMPRESSION: Diffusestranding in the subcutaneous tissue of the thigh, especially inner thigh. Findings consistent withinflammatory changes/cellulitis or bruising. No drainable fluid collection identified. THIS DOCUMENT HAS BEEN ELECTRONICALLY SIGNED BY MATTHEW MCMILLAN MD CT ABD/PELVIS WO IV/ORAL CONTRAST Result Date: 11/16/2023 IMPRESSION: 1. Overall nonobstructive bowel gas pattern. No focal bowel wall thickening identified 2. Nonspecific mild stranding in the right lower quadrant of the mesentery. Shotty mesenteric lymph nodes. Question mild mesenteric adenitis 3. Appendix not definitively identified 4. Small right pleural effusion, decreased from previous 5. Other chronic changes as in findings. THIS DOCUMENT HAS BEEN ELECTRONICALLY SIGNED BY MATTHEW MCMILLAN MD XR FOOT 3 OR MORE VIEWS Result Date: 11/16/2023 IMPRESSION: Subtle irregularity of the bony cortex along the plantar surface of the calcaneus may represent sequelae of known osteomyelitis. Soft tissue swelling. THIS DOCUMENT HAS BEEN ELECTRONICALLY SIGNED BY MATTHEW MCMILLAN MD XR CHEST 1 VIEW Result Date: 11/16/2023 IMPRESSION: No focal lobar consolidation. Question viral process or bronchitis. THIS DOCUMENT HAS BEEN ELECTRONICALLY SIGNED BY MATTHEW MCMILLAN MD XR SACRUM COCCYX MINIMUM 2 VIEWS Result Date: 11/16/2023 IMPRESSION: No gross cortical disruption or bony erosion on the visualized portions of the bony skeleton. Degenerative changes. THIS DOCUMENT HAS BEEN ELECTRONICALLY SIGNED BY MATTHEW MCMILLAN MD Assessment and Plan IMPRESSION : Principal Problem: Severe sepsis with acute organ dysfunction (HCC) Active Problems: Morbid obesity with BMI of 45.0-49.9, adult (HCC) Acute hyponatremia Lethargy Fever Diarrhea Black stools Dizziness Fibromyalgia Acute osteomyelitis of calcaneum, right (HCC) Pressure injury of sacral region, unstageable (HCC) Pain in both thighs PERLITA (acute kidney injury) ([facility]) RBBB (right bundle branch block) LAFB (left anterior fascicular block) Accelerated junctional rhythm Resolved Problems: * No resolved hospital problems. * DIFFERENTIAL AND PLAN: UA suggestive of UTI yet urine Cx no growth Blood Cultures NGTD since 11/16/2023 ProCal elevated at 0.22 Painful sacral pressure injury. Continue wound care. Will add fentanyl given severe pain. CT L/RLE with cellulitis. Will trend CRP XR of sacrum not suggestive of osteo; however, might consider MRI of persistent issues. Bronchitis on CXR stable. Pleural effusions stable from prior. Wean off oxygen as tolerated. Continue wound care at right foot for chronic osteo. There is soft tissue swelling on XR. Not currently having abdominal pain, yet CTAP with adenitis. Continue current antibiotic regimen. Will consider ID consult tomorrow. Anemia stable. Unlikely persistent acute GI bleed. Will continue to monitor Hgb. Transfuse if Hgb < 7. She is s/p 1 unit pRBC transfusion. Continue to monitor IO's, wts. Renal function improving. Troponin down trended. Likely demand ischemia on initial presentation of sever anemia. Appreciate cardiology input. Continue MANAGER CRISIS Bumex and metolazone. Echo pending. Follow AM labs. Monitor electrolytes and replenish as needed. FR 2L given hyponatremia. MANAGER CRISIS meds where appropriate PHARMACOLOGIC VTE PROPHYLAXIS: This patient does not have an active medication from one of the medication groupers. CODE STATUS: Full Code EXPECTED DISCHARGE DATE: 11/19/2023 I spent a total of 50 minutes coordinating, documenting, and providing care for this patient excluding time spent in the performance of separately billed services. * Thao Rivero RN - 11/18/2023 1:53 AM EDT Nursing Critical Care Response Note [facility] [id number] Name: Alexandria Smith Date: 11/18/2023 Time: 1:54 AM Event Location: [facility], Unit Area: 3b In the role of the Critical Response Nurse I was involved in the care of this patient. Method of notification to the critical care response nurse: Follow up previous notification Reason for notification or follow up: Chart Review Observations/Interventions/Assessment: Chart reviewed, patient has been alert and oriented. Hgb stable 8.6. SBps 110s- 130s. N Outcome/Plan Will discontinue follow up at this time since mental status improved and no longer hypotensive. Please contact for questions/concerns. * Renzo Diop MD - 11/17/2023 4:09 PM EDT Images from the original note were not included. [facility] 3B-3021/W 63 yo F with PMH of morbid obesity BMI 45.09, stage 4 CKD, HTN, DM2, fibromyalgia,, hypothyroid, chronic anemia with baseline Hb between 7 to 8 , HFpEF, chronically on 2 L NC, C.diff infection on 11/05, OM of right heel ( pseudomonas ) recently completed meropenem on 11/13/23 presented from [facility] for [facility]argy and being pale. She was admitted for severe sepsis with acute organ dysfunction. INTERVAL HISTORY: Patient was seen and morning having some jerking movements that was noted well as in the room. Overnight, she was getting lethargic again and required a 2nd unit of PRBC transfusion. This morning shedoes not report any pain or discomfort. She does feel improved overall but still feeling fatigued and tired. Loose stools have also improved. Objective Physical Exam Most Recent Vital Signs: BP: 116 mmHg/56 mmHg (11/17/231523) Pulse: 72 (11/17/231523) Resp: 18 (11/17/231523) Temp: 36.22 C (11/17/231523) Temp Summary: Temp Min: 35.6 C (96.1 F) Max: 36.5 C (97.7 F) SpO2: 100 % (11/17/231523) O2 flow rate: 2 L/MIN (11/17/231523) Supplemental O2 Delivery: Nasal Cannula (11/17/231523) Constitutional: (+) chronically ill HEENT: normal: normocephalic, atraumatic; no masses, tenderness, or adenopathy CV: normal rate and rhythm, no murmur, gallops or rub Chest: normal respiratory effort, breath sounds normal Extremities: no edema, no clubbing, no cyanosis Skin: warm, dry, intact: Neuro: alert, oriented to person, place, and time, normal mental status exam, moving all 4 extremities, but having spastic/jerky movements intermittently. Right heel, dressing in place. Appears dry they outside. She does have sacral wounds as well, thesewere present on admission. Likely stage II pressure ulcers. Urethral Catheter Regular catheter (Active) Number of days: 1 Peripheral Line Right Hand 20 Gauge (Active) Number of days: 1 Peripheral Line Left Hand 22 Gauge (Active) Number of days: 1 STUDIES: Encounter Orders Labs and other studies reviewed with pertinent findings noted below: Recent Results (from the past 24 hour(s)) MRSA SCREEN, PCR Collection Time: 11/16/23 5:22 PM Result Value Ref Range MRSA PCR Result Negative Negative CULTURE, URINE, QUANTITATIVE Collection Time: 11/16/23 5:22 PM Specimen: Urine, Clean Catch Result Value Ref Range Culture Growth No significant growth GLUCOSE METER, POINT OF CARE Collection Time: 11/16/23 6:14 PM Result Value Ref Range Glucose Meter 130 (H) 70 - 120 mg/dL HGB Collection Time: 11/16/23 6:35 PM Result Value Ref Range HGB 7.5 (L) 12.0 - 15.3 g/dL GLUCOSE METER, POINT OF CARE Collection Time: 11/16/23 9:25 PM Result Value Ref Range Glucose Meter 198 (H) 70 - 120 mg/dL HGB Collection Time: 11/17/23 12:14 AM Result Value Ref Range HGB 6.8 (L) 12.0 - 15.3 g/dL TROPONIN T, HIGH SENSITIVITY Collection Time: 11/17/23 12:14 AM Result Value Ref Range Troponin T, High Sensitivity 332 (HH) <=14 ng/L PREPARE PACKED RED BLOOD CELLS Collection Time: 11/17/23 1:05 AM Result Value Ref Range Unit Product Code [id number] Unit Number [id number] Unit ABO A Unit Rh POS Unit Crossmatch Compatible Unit Status IS Unit Blood Type APOS Unit Expiration [id number] Unit Barcode 6200 COMPREHENSIVE METABOLIC PANEL Collection Time: 11/17/23 5:59 AM Result Value Ref Range BUN 131 (H) 6 - 20 mg/dL Creatinine 3.2 (H) 0.5 - 1.0 mg/dL Estimated Glomerular Filtration Rate 16 (L) >=60 mL/min Sodium 132 (L) 135 - 146 mmol/L Potassium 4.5 3.5 - 5.1 mmol/L Chloride 92 (L) 98 - 107 mmol/L CO2 24 22 - 32 mmol/L Anion Gap 16 (H) 7 - 15 mmol/L Glucose 161 (H) 70 - 120 mg/dL Albumin 2.2 (L) 3.8 - 5.0 g/dL AST 17 10 - 35 U/L Alkaline Phosphatase 224 (H) 35 - 130 U/L Bilirubin, Total 0.4 <=1.2 mg/dL Calcium 8.5 8.4 - 10.2 mg/dL Protein 6.8 6.0 - 8.3 g/dL ALT 10 10 - 35 U/L MAGNESIUM Collection Time: 11/17/23 5:59 AM Result Value Ref Range Magnesium 1.8 1.5 - 2.6 mg/dL PHOSPHORUS Collection Time: 11/17/23 5:59 AM Result Value Ref Range Phosphorus 6.9 (H) 2.5 - 4.8 mg/dL TROPONIN T, HIGH SENSITIVITY Collection Time: 11/17/23 5:59 AM Result Value Ref Range Troponin T, High Sensitivity 320 (HH) <=14 ng/L CBC Collection Time: 11/17/23 5:59 AM Result Value Ref Range WBC 13.81 (H) 4.00 - 10.80 K/uL RBC 2.93 3.85 - 5.15 M/uL HGB 8.1 (L) 12.0 - 15.3 g/dL HCT 25.2 (L) 36.0 - 45.2 % MCV 86.0 81.5 - 97.5 fL MCH 27.6 27.0 - 34.0 pg MCHC 32.1 32.0 - 36.0 g/dL RDW 14.6 11.5 - 15.5 % PLT 444 (H) 140 - 400 K/uL MPV 9.6 6.6 - 11.1 fL nRBCs 0 <=0 /100 WBCs DIFFERENTIAL, AUTOMATED Collection Time: 11/17/23 5:59 AM Result Value Ref Range WBC 13.81 (H) 4.00 - 10.80 K/uL Neutrophils % 79.7 (H) 40.0 - 75.0 % Lymphocytes % 9.8 (L) 18.0 - 42.0 % Monocytes % 6.5 1.0 - 11.0 % Eosinophils % 2.3 0.0 - 6.0 % Basophils % 0.3 0.0 - 2.0 % Immature Granulocytes % 1.4 0.0 - 2.0 % Absolute Neutrophils 11.00 (H) 1.80 - 7.70 K/uL Absolute Lymphocytes 1.36 1.00 - 4.80 K/ul Absolute Monocytes 0.90 0.00 - 1.10 K/uL Absolute Eosinophils 0.32 0.00 - 0.70 K/uL Absolute Basophils 0.04 0.00 - 0.20 K/uL Absolute Immature Granulocytes 0.19 0.00 - 0.20 K/uL GLUCOSE METER, POINT OF CARE Collection Time: 11/17/23 7:29 AM Result Value Ref Range Glucose Meter 150 (H) 70 - 120 mg/dL GLUCOSE METER, POINT OF CARE Collection Time: 11/17/23 11:19 AM Result Value Ref Range Glucose Meter 168 (H) 70 - 120 mg/dL HGB Collection Time: 11/17/23 11:55 AM Result Value Ref Range HGB 8.6 (L) 12.0 - 15.3 g/dL ] Recent Cultures (2 Weeks) 11/16/2023 11/16/2023 11/16/2023 11/05/2023 5:22 PM 1:06 PM 12:36 PM 3:45 PM BLOOD CULTURE GROWTH -- No growth to date No growth to date No growth No growth QUANT URINE CULTURE GROWTH No significant growth -- -- -- Assessment and Plan IMPRESSION : Principal Problem: Severe sepsis with acute organ dysfunction (HCC) Active Problems: Morbid obesity with BMI of 45.0-49.9, adult (HCC) Acute hyponatremia Lethargy Fever Diarrhea Black stools Dizziness Fibromyalgia Acute osteomyelitis of calcaneum, right (HCC) Pressure injury of sacral region, unstageable (HCC) Pain in both thighs PERLITA (acute kidney injury) ([facility]) Resolved Problems: * No resolved hospital problems. * DIFFERENTIAL AND PLAN: - overall patient appears to be making steady progress. Sepsis has resolved. Blood pressure this morning is stable. Mental status is nearly normal. She continues to have jerky/spastic movements of her body. -continue broad-spectrum antibiotics for now, plan to deescalate in 24 hours if blood cultures remain negative for total 48 hours. Suspect bilateral inner thigh cellulitis as cause of sepsis picture.Appreciate Podiatry input, they feel the right heel wound appears to be healing well. Nursing staffalso note that during dressing changes the heel wound appears well. -PERLITA on CKD, she has a advanced CKD at baseline. Appreciate Nephrology input. We will continue avoiding nephrotoxic agents. Monitor urine output. She is making good urine currently. We will continue diuretics (home doses) as ordered. We will consider further doses of IV Lasix if she gets anymore PRBC transfusion. -4 jerky movements, concerning for myoclonic spasms which may be related to her worsening PERLITA causing side effects due to some other medications that she is taking including gabapentin, amitriptylineas well as simvastatin. I have discontinued the gabapentin and simvastatin. After speaking with thepatient I have also cut down the dose of amitriptyline to 25 mg HS from her baseline 75 mg HS. If she tolerates this change, we will continue the lower dose. Patient reports she is taking the amitriptyline for her fibromyalgia and it has been helping her. She has also been taking this medicine for many years, but her myoclonic spasms have only started over the last few weeks. -continue other home medications as ordered. -overall prognosis remains guarded. She still remains quite ill and I suspect she will need to be in the hospital for at least another 48-72 hours. -she is from SNF, and I anticipate that she will need to go back there following hospital treatment. -she is tolerating clear liquid diet well, we will advanced her diet to renal non dialysis diet. PHARMACOLOGIC VTE PROPHYLAXIS: This patient does not have an active medication from one of the medication groupers. CODE STATUS: Full Code EXPECTED DISCHARGE DATE: 11/19/2023 I spent a total of 55 minutes coordinating, documenting, and providing care for this patient excluding time spent in the performance of separately billed services. * Thao Rivero RN - 11/16/2023 11:00 PM EDT Nursing Critical Care Response Note [facility]-[address] [place] [id number] Name: Alexandria Smith Date: 11/16/2023 Time: 11:46 PM Event Location: [facility], Unit Area: 3b In the role of the Critical Response Nurse I was involved in the care of this patient. Method of notification to the critical care response nurse: Unit call/request for assistance Reason for notification or follow up: Change in Mental Status Observations/Interventions/Assessment: Contacted by primary nurse for increased lethargy. Assessed patient at bedside with primary nurse. Pt requiring sternal rub to wake up to answer questions then falls immediatly back to sleep. Reviewed chart. VSS. Admitting diagnosis sepsis- Receiving Meropenum and Vancomycin, possible sources GI/, skin. Recently completed 6 week course of Meropenum on 11/12 for osteomyelitis. UC pending. Cdiff negative. Received Oxy IR in ED. BUN Creatinine increased from baseline 146/3.7, GFR < 13. Hbg 7.5. Outcome/Plan Overnight PA was notified of patients difficulty to arouse by primary nurse. Will start following patient. * Mei Preston [facility] - 11/16/2023 8:14 PM EDT PHARMACY PHARMACOKINETIC CONSULT [facility] [phone] Name: Alexandria Smith Location: [facility] 3B-3021/W Date: 11/16/2023 Time: 8:12 PM Requesting Service: hospitalist Bacteria being treated: empiric Source of infection: sepsis Medication(s) being managed: Vancomycin Pharmacokinetic calculations will be performed without utilizing [employer] software due to meeting exclusion criteria (AYESHA Stage 2 or 3 PERLITA, or receiving renal replacement therapy [iHD, CRRT, PD]). Lab information: Lab Results Component Value Date/Time WBC 13.86 (H) 11/16/2023 12:36 PM WBC 15.17 (H) 11/16/2023 04:53 AM WBC 12.10 (H) 11/09/2023 04:10 AM WBC 16.74 (H) 11/05/2023 04:30 AM WBC 8.89 11/02/2023 04:20 AM WBC 14.40 (H) 12/03/2018 09:22 AM WBC 12.79 (H) 11/19/2018 09:00 AM WBC 11.66 (H) 02/27/2017 08:30 AM WBC 9.4 06/29/1999 04:24 PM WBC 8.2 09/16/1997 12:05 PM Lab Results Component Value Date/Time BUN 146 (H) 11/16/2023 12:36 PM BUN 146 (H) 11/16/2023 04:53 AM BUN 141 (H) 11/09/2023 04:10 AM BUN 126 (H) 11/05/2023 04:30 AM BUN 104 (H) 11/02/2023 04:20 AM BUN 104 (H) 11/02/2023 04:20 AM BUN 10 11/19/2018 09:00 AM BUN 19 01/22/2018 09:45 AM BUN 39 (H) 02/27/2017 08:30 AM BUN 9 (L) 2001 01:52 PM BUN 9 (L) 01/14/2001 01:16 PM Lab Results Component Value Date/Time CREAT 3.7 (H) 11/16/2023 12:36 PM CREAT 3.7 (H) 11/16/2023 04:53 AM CREAT 3.9 (H) 11/09/2023 04:10 AM CREAT 3.1 (H) 11/05/2023 04:30 AM CREAT 3.2 (H) 11/02/2023 04:20 AM CREAT 3.2 (H) 11/02/2023 04:20 AM CREAT 0.9 11/19/2018 09:00 AM CREAT 1.1 (H) 01/22/2018 09:45 AM CREAT 1.3 (H) 02/27/2017 08:30 AM CREAT 0.5 (L) 2001 01:52 PM CREAT 0.4 (L) 01/14/2001 01:16 PM ANTIMICROBIALS GIVEN (last 28 hours) Date/Time Action Medication Dose Rate 11/16/23 1442 New Bag Vancomycin (Vancocin) 2000 mg in NSS 500 mL ivpb 2,000 mg 285 mL/hr 11/16/23 1405 New Bag meropenem (Merrem) IVPB 1,000 mg 1,000 mg 100 mL/hr Wt Readings from Last 1 Encounters: 11/16/23 111.9 kg (246 lb 9.6 oz) Dosing and levels to date: No results found for: "VANCO", "VANCOPEAK", "VANCORANDOM", "VANCOTROUGH", "GENTPEAK", "GENTRANDOM","GENTTROUGH", "TOBRAPEAK", "TOBRARANDOM", "TOBRATROUGH", "AMIKAPEAK", "AMIKARANDOM", "AMIKATROUGH" Day of Therapy Date Dose Admin Time Level (mcg/mL) Collected Time Notes/Comment 1 11/16/23 2000 mg Plan/Recommendations: Administered 2000 mg IV Vancomycin followed by no maintenance regimen due to renal function. Obtainrandom level 11/17 at 0600 . Pharmacy will continue to follow and dose as appropriate by renal function, culture results, infectious disease input, and overall clinical status. documented in this encounter H&P Notes * Bernabe Gallagher MD - 11/16/2023 5:18 PM EDT Images from the original note were not included. [facility] 3B-3021/W PRESENTING PROBLEM: -lethargy , pale -feeling sick for one week with abdominal pain, nausea, diarrhea -fever 102 F, dizziness yesterday -black stools, jerky movement of RUE noted in ED HPI: 63 yo F with PMH of morbid obesity BMI 45.09, stage 4 CKD, HTN, DM2, fibromyalgia,, hypothyroid, chronic anemia with baseline Hb between 7 to 8 , HFpEF, chronically on 2 L NC, C.diff infection on 11/05, OM of right heel ( pseudomonas ) recently completed meropenem on 11/13/23 presented from [facility] for [facility]argy., pale .She reported feeling sick for one week with abdominal pain, nausea, diarrhea. Had fever of 102 F yesterday. She noted to have sleepy during conversation and stimulate multiple times to get the answers. She had a black loose bowel movement and small open multiple sacral decubitus ulcers and right heel ulcer. Also noted focal redness, indurated , tenderness in left and right inner thighs. Denies chest pain, shortness of breath. Her Legs are swollen but she said this isher baseline. Work up showed leucocytosis, severe anemia Hb 6.3, hyponatremia 129, BUN/.Cr- 146/3.7 , pro calcitonin 0.22, CRP 147 , UA positive for esterase ., bacteruria , WBC's, troponin 427 and 419. CTAP was unremarkable for bowel obstruction, no focal thickening identified. CT LE was unremarkable for fluid collection. EKG showed wide QRS complex which is pretty much the same as prior EKG. Subjective Patient's past history, medications, and allergies were reviewed. Objective Physical Exam Most Recent Vital Signs: BP: 125 mmHg/56 mmHg (11/16/23 1720) Pulse: 80 (11/16/23 1720) Resp: 20 (11/16/23 1720) Temp: 36.22 C (11/16/23 1720) Temp Summary: Temp Min: 36.2 C (97.2 F) Max: 37.3 C (99.1 F) SpO2: 100 % (11/16/230) O2 flow rate: 2 L/MIN (11/16/23 1720) Supplemental O2 Delivery: Nasal Cannula (11/16/23 1720) Constitutional: (+) ill appearing, (+) pale appearing HEENT: normal: normocephalic, atraumatic; no masses, tenderness, or adenopathy CV: S1 S2 Chest: normal respiratory effort, (+)decreased breath sounds due to her body habitus , no wheezing,no rhonchi Abdomen: soft, normal bowel sounds, no tenderness Extremities: (+) mild edema , Rt > left, focal redness, tenderness, induration in left and rightinner thigh, right heel open wound, foul smelling Skin: warm, dry, intact: Neuro: oriented to person, place, and time, (+) lethargic, involuntary Jerk movement in RUE Psych: (+) lethargic,non suicidal Urethral Catheter Regular catheter (Active) Number of days: 0 Peripheral Line Right Hand 20 Gauge (Active) Number of days: 0 Peripheral Line Left Hand 22 Gauge (Active) Number of days: 0 STUDIES: Encounter Orders Labs and other studies reviewed with pertinent findings noted below: Results for orders placed or performed during the hospital encounter of 11/16/23 CLOSTRIDIUM DIFFICILE, PCR Result Value Ref Range Stool Consistency Semi-liquid Clostridium difficile Result Negative Negative. No C. difficile toxin B gene DNA detected by PCR (Amplified Probe). COMPREHENSIVE METABOLIC PANEL Result Value Ref Range BUN 146 (H) 6 - 20 mg/dL Creatinine 3.7 (H) 0.5 - 1.0 mg/dL Estimated Glomerular Filtration Rate 13 (L) >=60 mL/min Sodium 129 (L) 135 - 146 mmol/L Potassium 4.8 3.5 - 5.1 mmol/L Chloride 89 (L) 98 - 107 mmol/L CO2 23 22 - 32 mmol/L Anion Gap 17 (H) 7 - 15 mmol/L Glucose 190 (H) 70 - 120 mg/dL Albumin 2.0 (L) 3.8 - 5.0 g/dL AST 20 10 - 35 U/L Alkaline Phosphatase 223 (H) 35 - 130 U/L Bilirubin, Total <0.2 <=1.2 mg/dL Calcium 8.2 (L) 8.4 - 10.2 mg/dL Protein 6.3 6.0 - 8.3 g/dL ALT 11 10 - 35 U/L PROCALCITONIN Result Value Ref Range Procalcitonin 0.22 (H) <0.10 ng/mL TROPONIN T, HIGH SENSITIVITY Result Value Ref Range Troponin T, High Sensitivity 427 (HH) <=14 ng/L LACTATE, WHOLE BLOOD WITH REFLEX IF ABNORMAL Result Value Ref Range Lactate, Whole Blood 1.2 0.4 - 2.0 mmol/L PT INR Result Value Ref Range Prothrombin Time 19.0 (H) 11.6 - 15.2 seconds INR 1.6 (H) 0.8 - 1.2 APTT Result Value Ref Range aPTT 38 21 - 38 seconds BLOOD GAS, VENOUS Result Value Ref Range Temperature 37.0 C pH, Venous 7.369 7.320 - 7.430 units pCO2, Venous 48.2 40.0 - 60.0 mmHg pO2, Venous 36.8 25.0 - 50.0 mmHg Base Excess, Venous 2.2 (H) -2.0 - 2.0 mmol/L HGB 6.7 (L) 12.0 - 15.3 g/dL Oxyhemoglobin, Venous 57.3 40.0 - 85.0 % total Hgb Carboxyhemoglobin, Whole Blood 2.0 (H) <=1.5 % total Hgb Methemoglobin, Whole Blood 0.5 <=1.5 % total Hgb Reduced Hemoglobin, Venous 40.2 % total Hgb O2 Content, Venous 5.5 (L) 7.0 - 18.0 %vol Bicarbonate, Whole Blood 27.1 23.0 - 31.0 mmol/L TYPE AND SCREEN Result Value Ref Range ABO A Rh Positive Red Blood Cell Antibody Screen Negative Specimen Expiration Date 11/19/2023 23:59 CBC Result Value Ref Range WBC 13.86 (H) 4.00 - 10.80 K/uL RBC 2.24 3.85 - 5.15 M/uL HGB 6.3 (L) 12.0 - 15.3 g/dL HCT 19.8 (L) 36.0 - 45.2 % MCV 88.4 81.5 - 97.5 fL MCH 28.1 27.0 - 34.0 pg MCHC 31.8 32.0 - 36.0 g/dL RDW 14.9 11.5 - 15.5 % PLT 470 (H) 140 - 400 K/uL MPV 10.2 6.6 - 11.1 fL nRBCs 0 <=0 /100 WBCs DIFFERENTIAL, AUTOMATED Result Value Ref Range WBC 13.86 (H) 4.00 - 10.80 K/uL Neutrophils % 77.4 (H) 40.0 - 75.0 % Lymphocytes % 12.2 (L) 18.0 - 42.0 % Monocytes % 6.4 1.0 - 11.0 % Eosinophils % 2.1 0.0 - 6.0 % Basophils % 0.1 0.0 - 2.0 % Immature Granulocytes % 1.8 0.0 - 2.0 % Absolute Neutrophils 10.72 (H) 1.80 - 7.70 K/uL Absolute Lymphocytes 1.69 1.00 - 4.80 K/ul Absolute Monocytes 0.89 0.00 - 1.10 K/uL Absolute Eosinophils 0.29 0.00 - 0.70 K/uL Absolute Basophils 0.02 0.00 - 0.20 K/uL Absolute Immature Granulocytes 0.25 (H) 0.00 - 0.20 K/uL URINALYSIS, REFLEX TO CULTURE (CUP ONLY) Result Value Ref Range Urinalysis, Reflex to Culture Specimen Specimen collected and received URINALYSIS, REFLEX TO CULTURE Result Value Ref Range Color, Urine Yellow Colorless, Light Yellow, Yellow, Dark Yellow Clarity, Urine Slightly Cloudy (A) Clear Glucose, Urine Negative Negative mg/dL Bilirubin, Urine Negative Negative Ketone, Urine Negative Negative mg/dL Specific [place], Urine 1.010 1.003 - 1.030 Blood, Urine Small (A) Negative pH, Urine 6.0 5.0 - 7.5 Units Protein, Urine 100 (A) Negative mg/dL Urobilinogen, Urine 0.2 0.2, 1.0 mg/dL Nitrite, Urine Negative Negative Esterase, Urine Large (A) Negative RBC, Urine 0-2 0 - 2 /HPF WBC, Urine 50+ (A) 0 - 2 /HPF Bacteria, Urine >200 (A) 0 - 25 /HPF Yeast, Urine Present (A) None /HPF Culture, Urine CRP (INFLAMMATORY MARKER) Result Value Ref Range CRP (Inflammatory Marker) 147 (H) <=5 mg/L TROPONIN T, HIGH SENSITIVITY Result Value Ref Range Troponin T, High Sensitivity 419 (HH) <=14 ng/L AMMONIA Result Value Ref Range Ammonia <10 (L) 11 - 35 umol/L PREPARE PACKED RED BLOOD CELLS Result Value Ref Range Unit Product Code [id number] Unit Number [id number] Unit ABO A Unit Rh POS Unit Crossmatch Compatible Unit Status IS Unit Blood Type APOS Unit Expiration [id number] Unit Barcode 6200 PROCEDURE INFORMATION: Exam: XR Chest Exam date and time: 11/16/2023 1:39 PM Age: 63 years old Clinical indication: Other: Sepsis; Open sacral wound with stool; Best images possible due to PT body habitus - lateral image done cross table TECHNIQUE: Imaging protocol: Radiologic exam of the chest. Views: 1 view. COMPARISON: DX XR CHEST 1 VIEW 10/06/2023 8:28 AM FINDINGS: Tubes, catheters and devices: Multiple monitoring leads projecting over the field of view. Lungs: No definite air bronchograms identified. Nonspecific coarsening of pulmonary parenchyma present. Pleural spaces: Unremarkable. No pleural effusion. No pneumothorax. Heart/Mediastinum: Cardiomegaly. Bones/joints: Unremarkable. IMPRESSION IMPRESSION: No focal lobar consolidation. Question viral process or bronchitis. THIS DOCUMENT HAS BEEN ELECTRONICALLY SIGNED BY MATTHEW MCMILLAN MD Exam Ended: 11/16/23 13:54 Last Resulted: 11/16/23 14:01 PROCEDURE INFORMATION: Exam: XR Sacrum and Coccyx, 2 or More Views Exam date and time: 11/16/2023 1:39 PM Age: 63 years old Clinical indication: Other: Sepsis; Open sacral wound with stool; Best images possible due to PT body habitus - lateral image done cross table TECHNIQUE: Imaging protocol: XR of the sacrum and coccyx, 2 or more views. COMPARISON: CT ABD/PELVIS WO IV/ORAL CONTRAST 06/17/2023 7:15 PM FINDINGS: Bones/joints: There is no evidence of malalignment or dislocation. There is no evidence of bony cortex disruption or periostitis. Sclerosis of the endplates and mild facet arthropathy. No definite cortical disruption. There are moderate degenerative changes of the sacroiliac joints. Soft tissues: See "Bones/joints" finding. IMPRESSION IMPRESSION: No gross cortical disruption or bony erosion on the visualized portions of the bony skeleton. Degenerative changes. THIS DOCUMENT HAS BEEN ELECTRONICALLY SIGNED BY MATTHEW MCMILLAN MD Exam Ended: 11/16/23 13:54 Last Resulted: 11/16/23 14:00 PROCEDURE INFORMATION: Exam: XR Right Foot Exam date and time: 11/16/2023 2:09 PM Age: 63 years old Clinical indication: Other: Heel wound. Recent osteo. Best images due to patient condition. TECHNIQUE: Imaging protocol: Radiologic exam of the right foot. Views: 3 or more views. COMPARISON: MRI FOOT RIGHT WO CONTRAST 10/04/2023 11:23 AM FINDINGS: Bones/joints: There is no evidence of malalignment or dislocation. Subtle irregularity of the bony cortex along the plantar surface of the calcaneus may represent sequelae of known osteomyelitis. Diffuse osteopenia. Scattered degenerative changes. Soft tissues: There is soft tissue swelling. IMPRESSION IMPRESSION: Subtle irregularity of the bony cortex along the plantar surface of the calcaneus may represent sequelae of known osteomyelitis. Soft tissue swelling. THIS DOCUMENT HAS BEEN ELECTRONICALLY SIGNED BY MATTHEW MCMILLAN MD Exam Ended: 11/16/23 14:19 Last Resulted: 11/16/23 14:24 This patient has severe sepsis and likely source of infection is GI, Urinary , OM. Clinical exam of the patient after fluid resuscitation showed: stable findings This assessment was based on the following exam: Mental Status: (+) lethargic Cardiovascular: regular rate and rhythm Pulmonary: decreased breath sounds Capillary Refill: normal Peripheral Pulses: normal Skin: pale Vitals after Crystalloids Date/Time wt-based Crystalloid first given Date 11/16/23 1300 Date/Time of last Vitals as of 1 hour after Crystalloid administration: Date 11/16/23 1400 Date/Time of last Vitals as of 3 hours after Crystalloid administration: Date 11/16/23 1600 Date/Time of last Vitals as of 5 hours after Crystalloid administration: Date 11/16/23 1800 Focused Exam Fluid Resuscitation Reevaluation Date/Time Date 11/16/23 1500 Assessment and Plan IMPRESSION: Active Problems: Morbid obesity with BMI of 45.0-49.9, adult (HCC) Sepsis (HCC) Lethargy Fever Diarrhea Black stools Dizziness Fibromyalgia Acute osteomyelitis of calcaneum, right (HCC) Pressure injury of sacral region, unstageable (HCC) Pain in both thighs Resolved Problems: * No resolved hospital problems. * DIFFERENTIAL AND PLAN: S/p 1 unit of PRBC for severe anemia -Monitor for bowel movement , noted black loose stools in ED, if she continues to have black stools, suggested endoscopy -Continue Protonix drip -Clear liquid diet -Transfuse Hb less than 7 g/dl -Monitor Hb Q 6 H -GI consult Severe sepsis possible sources GI//skin, OM -indwelling pruett was placed in ED , monitor I/O -continue IV meropenem/vancomycin -ID consult , defer to primary team -f/u cultures HFpEF -give IV lasix 40 mg in post transfusion -resume Bumex , metolazone tomorrow -ECHO due to elevated troponin's -trends troponin -cardiology consult CKD stage 4, hyponatremia, uremia -nephrology consult -continue supplemental oxygen 2 L NC -podiatry and wound consult for R heel Ulcer /OM and sacral decubitus ulcers Hypothyroid-stable -continue levothyroxine DM 2 -start SS mauro log today, resume Lantus 10 U HS tomorrow PHARMACOLOGIC VTE PROPHYLAXIS:This patient does not have an active medication from one of the medication groupers. CODE STATUS: Full Code EXPECTED DISCHARGE DATE: No information available I spent a total of 75 minutes coordinating, documenting, and providing care for this patient excluding time spent in the performance of separately billed services. documented in this encounter Procedure Notes * Janusz Harkins DO - 11/21/2023 8:08 PM EDTAssociated Order(s): EKG REASON FOR STUDY: Screening for cardiovascular condition CONCLUSIONS: Wide QRS rhythm - possible junctional rhythm Left axis deviation Right bundle branch block Abnormal ECG When compared with ECG of 18-Nov-2023 12:30, No significant change Ventricular Rate: 63 QRS Duration: 160 QT/QTc: 510/521 ms P-R-T Ewen: 0 : -63 : -6 degrees * Janusz Harkins DO - 11/18/2023 12:30 PM EDTAssociated Order(s): EKG REASON FOR STUDY: Tele changes CONCLUSIONS: Probable Junctional rhythm Right bundle branch block Left anterior fascicular block Bifascicular block Abnormal ECG When compared with ECG of No significant change Ventricular Rate: 79 Atrial Rate: 79 RI Interval: 172 QRS Duration: 170 QT/QTc: 468/536 ms P-R-T Ewen: 69 : -79 : 11 degrees * Felicitas Skelton DO - 11/16/2023 11:59 AM EDTAssociated Order(s): EKG REASON FOR STUDY: Sepsis (HCC) CONCLUSIONS: Wide QRS rhythm Left axis deviation Left ventricular hypertrophy with secondary QRS widening Abnormal ECG When compared with ECG of 03-Oct-2023 16:02, No significant change was found Ventricular Rate: 78 Atrial Rate: 45 QRS Duration: 172 QT/QTc: 442/503 ms P-R-T Ewen: 0 : -58 : 12 degrees documented in this encounter Consult Notes * Ricky Carnes MD - 11/22/2023 11:53 AM EDTAssociated Order(s): INFECTIOUS DISEASE CONSULT IP CONSULT - Infectious Disease [address] [id number] Name: Alexandria Smith Location: [facility] [id number] Date: 11/22/2023 Time: 11:54 AM REQUESTING SERVICE: [facility] hospitalist REASON FOR CONSULT: possible osteomylitis on foot and SSTI on thigh HPI: Ms. Smith is a 63 year old woman (known to our service) with medical history of morbid obesity, type 2 diabetes, heart failure preserved ejection fraction, CKD, and hypertension who was recently seen in our clinic on 11/12 because of right heel osteomyelitis. She had right heel osteomyelitis with bone biopsy in May 2023 growing MSSA. She was then completed a course of IV cefazolin on 07/23/2023. However, she was admitted to [facility] because of the same issue and underwent resection of the calcaneus with cultures growing Pseudomonas. She was then discharged on a long-term course of IV ertapenem which she already completed on 09/11/2023. During hospitalization at [facility] in early August 2023, she developed another right heel ulcer with MRI suggesting osteomyelitis of the calcaneal tuberosity and sinus tract at the plantar aspect of the heel with high-grade tear of the plantar fascia and near-complete rupture of the Achilles tendon. At that time, no surgeries were performed and no cultures were obtained. We decided to send out on another 6 week course of IV Meropenem which she completed on 11/13/2023. This time, she comes back with abdominal pain, nausea and diarrhea as well as fever for around 1 week (as per medical records). She was also noted to have multiple stage III sacral wound pressure ulcers with redness and tenderness in the left and right inner thighs. On presentation, initial blood workup showed leukocytosis, C diff test was negative and GI pathogen panel was negative as well. UA showed 50+ WBCs with more than 200 bacteria but her urine culture was negative. CT of the abdomen andpelvis showed nonobstructive bowel gas pattern with nonspecific stranding in the right lower quadrant. Also CT scan of bilateral lower extremities was performed which showed diffuse stranding in the subcutaneous tissue of the thigh consistent with inflammatory changes/cellulitis or bruising. Id team was consulted for further recommendations and to help guide antibiotic treatment. During today's encounter, the patient mentioned that she has not been having diarrhea and that the reason for her presentation was pain in her tailbone. Also, no reported fever or chills. ALLERGIES: Clarithromycin, Dextromethorphan, Doxylamine, Wqvoqrcbe-oilikooypz-ww-apap, Amoxicillin, Food (see comments), Latex, and Sulfa antibiotics PAST MEDICAL HISTORY: Past Medical History: Diagnosis [...] performed by Lynnette Rasmussen DPM at OR [facility] INFORMATION wisdom teeth removed INJECTION CERVICAL/THORACIC 06/26/2014 INJECTION SPINE LUMBAR CERVICAL OR THORACIC performed by Héctor Rios DO at OR [facility] INJECTION CERVICAL/THORACIC 07/10/2014 INJECTION SPINE LUMBAR CERVICAL OR THORACIC performed by Héctor B Cousins, DO at OR [facility] KNEE ARTHROSCOPY/REPAIR LIGAMENT 1998 Knee Scope,Aid Ant Cruciate Repair x 2 SOCIAL HISTORY: Social History Tobacco Use Smoking status: Never Smokeless tobacco: Never Vaping Use Vaping status: Never Used Substance Use Topics Alcohol use: No Drug use: Never FAMILY HISTORY and FAMILY STATUS: Family History Problem Relation Name Age of Onset Diabetes Mother Diabetes Grandfather (Maternal) Diabetes Uncle (Unspecified) maternal Heart Disorder Father aneyurism Heart Disorder Grandmother (Paternal) aneyurism Family Status Relation Status Mo (Not Specified) MGFA (Not Specified) UNCLE (Not Specified) Fa (Not Specified) PGMA (Not Specified) UNCLE (Not Specified) ROS: Neg except for what was mentioned in H&P. PHYSICAL EXAMINATION: Most Recent Vital Signs: BP: 135 mmHg/52 mmHg (11/22/23756) Pulse: 60 (11/22/23756) Resp: 18 (11/22/23756) Temp: 36.28 C (11/22/23756) Temp Summary: Temp Min: 36 C (96.8 F) Max: 36.6 C (97.9 F) SpO2: 100 % (11/22/23756) O2 flow rate: 2 L/MIN (11/22/23756) Supplemental O2 Delivery: Nasal Cannula (11/22/23756) Vital Signs Last 24 Hours: Systolic BP: Most Recent Systolic BP Av.2 mmHg Min: 130 mmHg Max: 148 mmHg Temperature: Most Recent Temperature Av.3 C Min: 36 C Max: 36.61 C Pulse: Pulse Av.2 Min: 59 Max: 63 Respirations: Resp Av.4 Min: 16 Max: 18 SpO2: SpO2 Av % Min: 100 % Max: 100 % General: Lying in bed comfortably and in no acute respiratory or pain distress. HEENT: head atraumatic. No conjunctival injection, no nasal discharge and no abnormal oropharyngealfindings. Cardiac: Regular heart rate with no murmurs, gallops, or rubs. Both, S1 and S2 are heard. Respiratory: The chest wall is symmetric and without deformity. Good bilateral air entry with no wheezes or crackles. Abdominal: Abdomen is soft, not distended with no tenderness on palpation. Genital/Rectal: No Pruett in place. Extremities/Skin: Rt heel wound based on pictures taken on admission: The wound looks very clean with healthy edges and fleshy background suggesting good granulation tissue. Multiple stage 2 to 3 sacral pressure ulcers with yellowish bases but no active drainage and no surrounding redness. Neurological: The patient is awake, alert and oriented with normal speech. Psychiatric: Appropriate mood and affect. Good judgement and insight. LABS: Labs reviewed as indicated below. MICROBIOLOGY DATA: 11/15: 2 sets of blood culture negative to date 11/15: Urine culture negative IMAGING: CT abdomen pelvis on 11/15: 1. Overall nonobstructive bowel gas pattern. No focal bowel wall thickening identified 2. Nonspecific mild stranding in the right lower quadrant of the mesentery. Shotty mesenteric lymph nodes. Question mild mesenteric adenitis 3. Appendix not definitively identified 4. Small right pleural effusion, decreased from previous CT bilateral lower extremities on 11/15: Diffuse stranding in the subcutaneous tissue of the thigh, especially inner thigh. Findings consistent with inflammatory changes/cellulitis or bruising IMPRESSION: 1) Bilateral inner thigh redness/induration - likely due to dependent edema and lymphedema 2) Sacral pressure ulcers - stage III 3) recent Hx of Rt calcaneal osteomyelitis - appropriately treated and completed her course of therapy on 11/13/2023 4) Type 2 diabetes with neuropathy RECOMMENDATIONS: At this point, I am not concerned about any infectious process. She was appropriately treated for her right calcaneal osteomyelitis and per my observation today and early this month during the clinicvisit, the right heel wound has been healing well. Also, during today's exam, I noticed that the red ness and induration on the inner thighs are likely secondary to dependent edema and lymphedema. Furthermore, on examination, the sacral pressure ulcers did not look infected. Therefore, I would recommend stopping both IV cefepime and IV vancomycin and monitoring off of antibiotics at this point. * Mirian Gamino LPN - 11/19/2023 9:02 AM EDTAssociated Order(s): WOUND CONSULT IP; WOUND CONSULT IP Images from the original note were not included. Order Date:11/16/2023 Ordering User:BERNABE GALLAGHER [[id number]] Attending Provider:Deng Ness DO [[id number]] Authorizing Provider: Bernabe Gallagher MD [[id number]] Department:[facility][[id number]] Order Specific Information Order: WOUND CONSULT IP [CUSTOM: [id number]] Order #: [id number]: 1 Priority: Routine Class: Nursing Unit Reason for Consult: -> sacral decubitus, right heel ulcer Consulting Provider: -> Charley Provider Released on: 11/16/2023 5:22 PM Priority: Routine Class: Nursing Unit Reason for Consult: -> sacral decubitus, right heel ulcer Consulting Provider: -> Charley Provider Released on: 11/16/2023 5:22 PM Wound Care consult done for sacral decubitus, Rt heel ulcer. HPI; Information obt from chart, and patient: Alexandria Smith is a 63 year-old diabetic female with a PMHx significant for HTN, PERLITA. Patient admitted today for CC of sepsis. Podiatry consulted for R calc OM. Patient last seen by podiatry 06/11/2023 [facility] admission, at which time R calc biopsy was performed, which showed chronic OM. Patient was discharged on PICC line and was to follow up with podiatry in [facility]. Patient states she hasbeen seeing [facility] podiatry regularly, last seen on 11/14/2023, at which time no signs of infection were noted to the heel wound, Wound vac was applied. Patient states she had heel surgery performed, unsure as to when. According to chart check, MRI from 10/04/2023 shows calc resection, so sx must have been performed between discharge in June and end of September. Chart check also shows heel bone pathology was send/received mid/late July, suggesting surgery was likely performed near that time, but unclear as to date or whether clean margin was sent. Patient states she lives in facility. Patient states she uses a wheelchair to ambulate at baseline. Patient denies smoking. Patient's WBC is 13.86. Vitals upon presentation were found to be Blood pressure 125/56, pulse 80, temperature 36.2 C (97.2 F), temperature source Tympanic, resp. rate 20, height 1.575 m (5' 2"), weight 111.9 kg (246 lb 9.6 oz), last menstrual period 11/22/2002, SpO2 100%.. Patient denies F/C/N/V/SOB/chest pain/calf pain. Unlikely that heel is source of current sepsis, however, if was proved to be definitive source, patient would require proximal amputation, as heel resection has already been performed by another surgeon and no further surgical pedal interventions can be safely performed. -Nursing communication placed for daily SWTD. Wound care was asked to see pt for sacral decubitus and Rt heel ulcer. She is well known to wound care. Podiatry is following patient as noted above for Rt heel ulcer. Nursing staff reported dressingwas done to Rt heel. Dressing CDI to Rt heel. Pt was turned to Rt side. She appears confused. Stated she didn't know where she was from, she was saying "ouch ouch" several times during care. She could not identify painful areas but she would just say "everywhere". Past medical history: Past Medical History: Diagnosis [...] performed by Lynnette Rasmussen DPM at OR [facility] INFORMATION wisdom teeth removed INJECTION CERVICAL/THORACIC 06/26/2014 INJECTION SPINE LUMBAR CERVICAL OR THORACIC performed by Héctor Marvin Cousins, DO at OR [facility] INJECTION CERVICAL/THORACIC 07/10/2014 INJECTION SPINE LUMBAR CERVICAL OR THORACIC performed by Héctor Marvin Cousins, DO at OR [facility] KNEE ARTHROSCOPY/REPAIR LIGAMENT 1997 Knee Scope,Aid Ant Cruciate Repair x 2 Family History Problem Relation Name Age of Onset Diabetes Mother Diabetes Grandfather [...] Never Smokeless tobacco: Never Vaping Use Vaping status: Never Used Substance and Sexual Activity Alcohol use: No Drug use: Never Sexual activity: Not Currently Other Topics Concern Not on file Social History Narrative Not on file Social Determinants of Health Financial Resource Strain: Not on file Food Insecurity: No Food Insecurity (10/03/2023) Food Insecurity Do you need food for this week? (Adult - for ages 18 years and over): No Are you able to get enough food for your family? (Household - for ages 0-17 years): Not on file Does your family need food this week? (Household - for ages 0-17 years): Not on file Do you always have enough food for your family? (Household - for ages 0-17 years): Not on file Transportation Needs: No Transportation Needs (10/03/2023) Transportation Needs Do you have trouble getting a ride to medical visits or work? (Adult - for ages 18 years and over):Never True Does your family have a hard time getting a ride to doctors visits? (Household - for ages 0-17 years): Not on file Has lack of transportation kept you from medical appointments, meetings, work, or from getting things needed for daily living? Check all that apply. (Adult - for ages 18 years and over): No Do you (or your family) have trouble finding or paying for a ride (transportation)? (Household - for ages 0-17 years): Not on file Social Connections: Unknown (08/28/2023) Social Connections How often do you feel lonely or isolated from those around you? (Adult - for ages 18 years and over): Not on file Housing Stability: Low Risk (10/03/2023) Housing Stability Do you currently live in a residential or have no steady place to sleep at night? (Adult - for ages 18 years and over): Not on file Do you think you are at risk of becoming homeless? (Adult - for ages 18 years and over): No Does your family worry about paying for your home or becoming homeless? (Household - for ages 0-17 years): Not on file Are you homeless or worried that you might be in the future? (Adult - for ages 18 years and over): No Are you (or your family) homeless or worried that you might be in the future? (Household - for ages0-17 years): Not on file Allergies: Review of patient's allergies indicates: Allergen Reactions Clarithromycin Other (Please comment) Heart racing Dextromethorphan Hives Doxylamine Hives Saqwiwzda-Zbjvkfksuv-Br-Apap Edema face/lips/tongue and Itching Amoxicillin Food (See Comments) Hives [employer] brand 7 Grain Bread Latex Sulfa Antibiotics Other (Please comment) and Rash malaise Code status: Code Status: Full Code Focused Wound Assessment: VS: BP 158/79 | Pulse 82 | Temp 36.5 C (97.7 F) (Temporal Artery) | Resp 18 | Ht 1.575 m (5' 2") | Wt 114.3 kg (252 lb) | LMP 11/22/2002 | SpO2 100% | BMI 46.09 kg/m | BSA 2.24 m General: ill appearing. Obese. Neuro: confused. Disoriented. MS: poor mobility. Vascular: Generalized edema. Integumentary: bruising/ecchymosis w/ deep tissue injury to posterior Rt thigh. Surrounding skin blanchable. Unknown etiology or occurrence of wound. No documentation noted on this wound. For buttocks. Sacral wound w/ fibrin and granular base. This most likely originated from moisture but given the appearance of wound, This is consistent w/ an unstageable PI. Gluteal cleft and several other open areas are consistent w/ MASD from frequent BMs with possible component of pressure. PULSE SCALE: 4=Aneurysmal; 3=Normal; 2=Diminished; 1=Barely Palpable; 0=Absent Eduar: 17 11/17/232024 Eduar Scale - Daily Sensory Perception 3 Moisture 3 Activity 3 Mobility 3 Nutrition 3 Friction and Shear 2 Eduar Score (auto-calculation) 17 Support surface: seat cushion Routine repositioning past 24 hrs: yes, no heel elevation Moisture management past 24 hrs: moisture absorbent pads. Nutritional support: High Calorie/High Protein Supplement - Orders Placed This Encounter Procedures Adult Renal Non-Dialysis (CKD/PERLITA) Diet : Fluid Restriction (ml): 1999 Review of Labs/Tests: Latest Reference Range & Units 11/19/23 00:14 11/19/23 06:57 Sodium 135 - 146 mmol/L 130 (L) Potassium 3.5 - 5.1 mmol/L 3.8 Chloride 98 - 107 mmol/L 90 (L) CO2 22 - 32 mmol/L 27 BUN 6 - 20 mg/dL 122 (H) Creatinine 0.5 - 1.0 mg/dL 3.0 (H) Estimated Glomerular Filtration Rate >=60 mL/min 17 (L) Anion Gap 7 - 15 mmol/L 13 Glucose 70 - 120 mg/dL 164 (H) Calcium 8.4 - 10.2 mg/dL 8.4 CBC Rpt ! WBC 4.00 - 10.80 K/uL 11.84 (H) RBC 3.85 - 5.15 M/uL 2.96 HGB 12.0 - 15.3 g/dL 8.2 (L) 8.3 (L) HCT 36.0 - 45.2 % 26.1 (L) MCV 81.5 - 97.5 fL 88.2 MCH 27.0 - 34.0 pg 28.0 MCHC 32.0 - 36.0 g/dL 31.8 RDW 11.5 - 15.5 % 14.6 PLT 140 - 400 K/uL 452 (H) MPV 6.6 - 11.1 fL 10.1 CBC WITH WBC DIFFERENTIAL Rpt ! Absolute Neutrophils 1.80 - 7.70 K/uL 8.92 (H) Absolute Lymphocytes 1.00 - 4.80 K/ul 1.35 Absolute Monocytes 0.00 - 1.10 K/uL 0.99 Absolute Eosinophils 0.00 - 0.70 K/uL 0.36 Absolute Basophils 0.00 - 0.20 K/uL 0.04 (L): Data is abnormally low (H): Data is abnormally high !: Data is abnormal Rpt: View report in Results Review for more information XR FOOT 3 OR MORE VIEWS Order: [id number] Status: Final result Visible to patient: Yes (not seen) Next appt: 12/25/2023 at 10:00 AM in *Nephro* (Joslyn Barney MD) Dx: Other specified soft tissue disorders 0 Result Notes Details Reading Physician Reading Date Result Priority Matthew Mcmillan MD [phone] 11/16/2023 Narrative & Impression PROCEDURE INFORMATION: Exam: XR Right Foot Exam date and time: 11/16/2023 2:09 PM Age: 63 years old Clinical indication: Other: Heel wound. Recent osteo. Best images due to patient condition. TECHNIQUE: Imaging protocol: Radiologic exam of the right foot. Views: 3 or more views. COMPARISON: MRI FOOT RIGHT WO CONTRAST 10/04/2023 11:23 AM FINDINGS: Bones/joints: There is no evidence of malalignment or dislocation. Subtle irregularity of the bony cortex along the plantar surface of the calcaneus may represent sequelae of known osteomyelitis. Diffuse osteopenia. Scattered degenerative changes. Soft tissues: There is soft tissue swelling. IMPRESSION IMPRESSION: Subtle irregularity of the bony cortex along the plantar surface of the calcaneus may represent sequelae of known osteomyelitis. Soft tissue swelling. XR SACRUM COCCYX MINIMUM 2 VIEWS Order: [id number] Status: Final result Visible to patient: Yes (not seen) Next appt: 12/25/2023 at 10:00 AM in *Nephro* (Joslyn Barney MD) 0 Result Notes Details Reading Physician Reading Date Result Priority Matthew Mcmillan MD [phone] 11/16/2023 Narrative & Impression PROCEDURE INFORMATION: Exam: XR Sacrum and Coccyx, 2 or More Views Exam date and time: 11/16/2023 1:39 PM Age: 63 years old Clinical indication: Other: Sepsis; Open sacral wound with stool; Best images possible due to PT body habitus - lateral image done cross table TECHNIQUE: Imaging protocol: XR of the sacrum and coccyx, 2 or more views. COMPARISON: CT ABD/PELVIS WO IV/ORAL CONTRAST 06/17/2023 7:15 PM FINDINGS: Bones/joints: There is no evidence of malalignment or dislocation. There is no evidence of bony cortex disruption or periostitis. Sclerosis of the endplates and mild facet arthropathy. No definite cortical disruption. There are moderate degenerative changes of the sacroiliac joints. Soft tissues: See "Bones/joints" finding. IMPRESSION IMPRESSION: No gross cortical disruption or bony erosion on the visualized portions of the bony skeleton. Degenerative changes. Interventions/treatments: Pt was seen and examined at bedside. Introduces self and role as wound care nurse. Pt was able to turn to Rt side w/ assistance. Pt was incontinent loose stool. Foam dressing removed d/t soiling. Cleansed skin with soap & water. Applied zinc barrier cream to gluteal cleft. Covered sacral wound w/ Aquacel AG and foam dressing. Heel dressing CDI. For posterior Rt thigh, for now monitor appearance for further demarcation. Discussed w/ Dr Jara. Wound was seen on CT scan, he is aware. Called [facility], spoke to Nancy Aguero RN. She reviewed pt's treatments. She stated they were using antifungal to groin, she had IAD to Rt buttocks- treated w/ barrier cream. They were not aware of injury to Posterior Rt thigh or PI. Recommendations: Unstageable PI sacrum: -cleanse promptly after any incontinence. -off load pressure. Routine repositioning Q 2 hrs. -low air loss bed. -Aquqcel Ag and foam dressing daily. MASD to gluteal cleft: --cleanse promptly after any incontinence. -off load pressure. Routine repositioning Q 2 hrs. -zinc barrier cream BID & PRN. Posterior Rt thigh: -monitor for demarcation, signs of worsening or infection. -off load pressure. -no dressing at this time. Thank you for consult. Coordinated care w/ nursing staff. Call or TT w/ any questions or concerns. Mirian Gamino LPN,WCC,OMS Licensed Practical Nurse, Wound Care Certified, Ostomy data management consultant Wound Care Resource Nurse 11/19/23 2:51 PM * Laverne Martinez, OTR/L - 11/19/2023 8:30 AM EDTAssociated Order(s): ADULT OCCUPATIONAL THERAPY CONSULT IP GENERAL EVALUATION - Occupational Therapy [facility] [id number] Name: Alexandria Smith Location: [facility] [address]30[address]/W Date: 11/19/2023 Time: 8:30 AM Alexandria Smith is a 63 year old female. Per H&P: "63 yo F with PMH of morbid obesity BMI 45.09, stage 4 CKD, HTN, DM2, fibromyalgia,, hypothyroid, chronic anemia with baseline Hb between 7 to 8 , HFpEF, chronically on 2 L NC, C.diff infection on 11/05, OM of right heel ( pseudomonas ) recently completed meropenem on 11/13/23 presented from [facility] for lethargy., pale .She reported feeling sick for one week with abdominal pain, nausea, diarrhea. Had fever of 102 F yesterday. She noted to have sleepy during conversation and stimulate multiple times to get the answers. She had a black loose bowel movement and small open multiplesacral decubitus ulcers and right heel ulcer. Also noted focal redness, indurated , tenderness in left and right inner thighs. Denies chest pain, shortness of breath. Her Legs are swollen but she said this is her baseline. Work up showed leucocytosis, severe anemia Hb 6.3, hyponatremia 129, BUN/.Cr- 146/3.7 , pro calcitonin 0.22, CRP 147 , UA positive for esterase ., bacteruria , WBC's, troponin 427 and 419. CTAP was unremarkable for bowel obstruction, no focal thickening identified. CT LE was unremarkable for fluid collection. EKG showed wide QRS complex which is pretty much the same as prior EKG." Patient Status: Inpatient Insurance: Payor: [employer]VANTAGE Plan: [employer] MEDICARE ADVANTAGE PPO Product Type: *No Product type* Payor: First Coverage [place] Plan: First Coverage [facility] Product Type: HMO Patient Seen: at bedside Patient Identified By: Name, ID Band and Date Diagnosis: Sepsis (11/19/23829) Status of treatment: OOB evaluation completed (11/19/23829) Orders: OT evaluation and treatment (11/19/23829) Weight Bearing Status: Weight bearing as tolerated (11/19/23829) Precautions: Alarms;Falls;Skin;Safety;Oxygen (2L O2 via NC) (11/19/23829) Total Treatment Time: 70 minutes (11/19/23829) Past Medical History: Past Medical History: Diagnosis [...] performed by Lynnette Rasmussen DPM at OR [facility] INFORMATION wisdom teeth removed INJECTION CERVICAL/THORACIC 06/26/2014 INJECTION SPINE LUMBAR CERVICAL OR THORACIC performed by Héctor Rios DO at OR [facility] INJECTION CERVICAL/THORACIC 07/10/2014 INJECTION SPINE LUMBAR CERVICAL OR THORACIC performed by Héctor Rios DO at OR [facility] KNEE ARTHROSCOPY/REPAIR LIGAMENT 1998 Knee Scope,Aid Ant Cruciate Repair x 2 Social History/Disposition Lives with: Caregiver / Attendant (11/19/23829) Assistance available: Yes (11/19/23829) Dwelling type: correction facility ([facility]) (11/19/23829) Entry steps: None (11/19/23829) Inside steps: None (11/19/23829) Bedroom location: 1st floor (11/19/23829) Bath location: 1st floor full bath (11/19/23829) Prior Level of Function Reported by: Patient;Chart review (11/19/23829) Ambulation: Non-ambulatory with manual wheelchair;Transfer via (11/19/23829) Transfer Via: Stand/pivot with assist (11/19/23829) Grooming: Independent (11/19/23829) Bathing: Assistance (11/19/23829) Dressing: Assistance (11/19/23829) Feeding: Independent (11/19/23829) Toileting: Assistance (11/19/23829) Meal Prep: Dependent (11/19/23829) Homemaking: Dependent (11/19/23829) Shopping: Dependent (11/19/23829) Medication Management: Dependent (11/19/23829) Money Management: Dependent (11/19/23829) Occupation/Leisure Skills: Retired (11/19/23829) Driving: No (11/19/23829) Durable Medical Equipment at home: Rolling walker;Wheelchair (11/19/23829) Subjective: "I just feel very emotional. I just want to go home." Pain: Patient has complaints of pain. Pain located tailbone. 10/19 Observations Consciousness: Alert;Confused (11/19/23829) Orientation: Oriented times 4 (11/19/23829) Psychosocial: Patient can converse in a social setting;Patient can communicate basic needs (11/19/23829) Sitting posture: Rounded shoulders (11/19/23829) Standing posture: Rounded shoulders (11/19/23829) Safety awareness: The Patient verbalizes insight of current deficits.;The Patient demonstrates carryover of insight during functional tasks. (11/19/23829) Other Findings Light touch sensation: LUE;RUE;Intact;LLE;RLE;Impaired (tingling sensation in feet) (11/19/23829) Coordination: LUE;RUE;Intact (11/19/23829) Current Functional Status: Bilateral Upper Extremity Hand Dominance: Right (11/19/23829) Range of Motion: WFL (11/19/23829) Strength Assessment: (BUE grossly 4/5) (11/19/23829) Self Care Feeding: Supervision (Please comment) (11/19/23829) Grooming: Supervision (Please comment) (11/19/23829) Toileting: Dependent (Incontinent of BM) (11/19/23829) Dressing Upper Body: Moderate Assistance (hospital gown) (11/19/23829) Lower Body: Dependent (slipper socks) (11/19/23829) Bathing Upper Body: Minimal Assistance (11/19/23829) Lower Body: Maximal Assistance (11/19/23829) OT Transfers Sit-Stand: Moderate Assistance (x2) (11/19/23829) Alarm Status Patient positioned in: Chair (11/19/23829) With: Pressure pad alarm intact and functioning and call villeda in reach (11/19/23829) Patient and Family Goals: to get well and to return home Patient Education Education Topic: Role of OT;Plan of care goals (11/19/23829) Review of Precautions: Safety;Fall (11/19/23829) Education Provided to: Patient (11/19/23829) Response to Education: Receptive and agreeable to education (11/19/23829) Barriers to learning: Medical status (11/19/23829) Preferred learning method: Combination (11/19/23829) Treatment Provided: Therapeutic Activity: 55 minutes Evaluation Moderate Complexity 15 minutes - 09176: Patient was cooperative, pleasant, and alert during treatment session. Moderate complexity evaluation performed and 3-5 activity limitations were identified, including ADL deficit, functional mobility deficit, bed mobility deficit, decreased strength, decreased endurance, and impaired balance. Minimal or moderate modification of the functional task was necessary to complete the evaluation. Deficits Requiring O.T. Treatment: Deficits requiring O.T. treatment needs: ADL/self-care;Balance;Endurance;Functional mobility;Safety;Upper extremity strength;Weakness (11/19/23829) Goals: Bathing: Upper: supervision. Lower: moderate assistance (pt does 50%) Dressing: Upper: minimal assistance (pt does 75%). Lower: moderate assistance (pt does 50%). Bed Mobility with: Supine to Sit: minimal assistance (pt does 75%) Sit to supine: minimal assistance (pt does 75%). Transfers with: Toilet: minimal assistance (pt does 75%) Bed to Chair/Wheelchair: minimal assistance (pt does 75%). Demonstrates standing tolerance at: 10 Minutes. Demonstrates toileting at moderate assistance (pt does 50%) Goal Time Frame: 1-10 sessions Assessment: Ms. Smith was seen at bedside for OT evaluation. She was pleasant and A&Ox4. Pt completed bathing, dressing, and grooming tasks with SPV-modA for UB ADLs and max-totalA for LB ADLs. Shewas also incontinent of BM during session and required totalA for clothing management and matthew care, standing 3x with modA x2. Pt is well below her functional baseline. Would consider post-acute care services which may include home health, snf, outpatient therapy, or inpatient rehab. The level of care will be determined in collaboration with the patient, family/caregiver, and care team members. AM-PAC score: 12. A portion of this AM-PAC assessment was [...] eval): 1 to 3 times per week (11/19/23829) AM-PAC Help From Another Person Eating Meals: A little (11/19/23829) Help From Another Person Taking Care of Personal Grooming: A little (11/19/23829) Help From Another Person To Put On/Take Off Upper Body Clothing: A lot (11/19/23829) Help From Another Person To Put On/Take Off Lower Body Clothing: Total (11/19/23829) Help From Another Person Toileting: Total (11/19/23829) Help From Another Person Bathing: A lot (11/19/23829) OT AM-PAC Score: 12 (11/19/23829) OT AM-PAC t-Scale Score: 30.6 (11/19/23829) HLM (Highest Level of Mobility) Goal: Level 4 move to chair/commode (11/19/23902) * Everette Bustos MD - 11/17/2023 3:28 PM EDTAssociated Order(s): NEPHROLOGY CONSULT IP CONSULT - Nephrology [facility]-[address] [id number] Name: Alexandria Smith Location: [facility] 3B[address]3021/W Date: 11/17/2023 Time: 3:29 PM REQUESTING SERVICE: REASON FOR CONSULT: PROBLEM: acute on chronic renal failure HPI: 63?F with poor baseline health. She has morbid obesity BMI 45.09, stage 4 CKD and progressively worsening ( more recent creat is in the 2's but lot of Variation), HTN, DM2, fibromyalgia,, hypothyroid, chronic anemia with baseline Hb between 7 to 8, HFpEF, chronically on 2 L NC, C.diff infection on 11/05, OM of right heel ( pseudomonas ) recently completed meropenem on 11/13/23 presented from [facility] for lethargy and looking pale .She reported feeling sick for one week with abdominal pain, nausea, diarrhea. Had fever of 102 F and noted to be very sleepy during conversation. She had a black loose bowel movement and small open multiple sacral decubitus ulcers and right heel ulcer. Also noted focal redness, indurated , tenderness in left and right inner thighs. Denies chest pain, shortness of breath. Her Legs are swollen but she said this is her baseline and very hard to assess her fluid status. Work up showed leucocytosis, severe anemia Hb 6.3, hyponatremia 129, BUN/.Cr- 146/3.7 CRP 147 . CTAPwas unremarkable for bowel obstruction, no focal thickening identified. CT LE was unremarkable for fluid collection. Since admission she has received blood transfusion with Lasix and IV meropenem and IV vancomycin has been given. There is plan for ID consult she is also getting Bumex and metolazone as per her regular outpatient prescription. Blood work from this morning shows slight improvement with a BUN down to 131 and creatinine down to3.2. After blood transfusion hemoglobin is up to 8.6 most recently. She has been seen by GI and there is no plan for scope for now She has a Pruett catheter and does have a lot of clear looking urine. She is sleeping and barely opens her eyes and I was unable to get any history from the patient. Review of systems is not possible to obtain PAST MEDICAL HISTORY: Past Medical History: Diagnosis Date Acute kidney injury (HCC) Acute osteomyelitis of right calcaneus (HCC) Asthma DM type 2, goal A1c below 7 HTN, goal below 140/90 Migraine without aura Muscular deconditioning Other specified acquired hypothyroidism Umbilical hernia SURGICAL HISTORY: Past Surgical History: Procedure Laterality Date ANESTHESIA FOR UTERINE ENDOSCOPY BONE BIOPSY, TROCAR/NEEDLE,SUPERFIC Right 06/06/2023 BIOPSY BONE NEEDLE SUPERFICIAL performed by Lynnette Rasmussen DPM at OR [facility] INFORMATION wisdom teeth removed INJECTION CERVICAL/THORACIC 06/26/2014 INJECTION SPINE LUMBAR CERVICAL OR THORACIC performed by [facility], DO at OR [facility] INJECTION CERVICAL/THORACIC 07/10/2014 INJECTION SPINE LUMBAR CERVICAL OR THORACIC performed by [facility], DO at OR [facility] KNEE ARTHROSCOPY/REPAIR LIGAMENT 1997 Knee Scope,Aid Ant Cruciate Repair x 2 ALLERGIES: Clarithromycin, Dextromethorphan, Doxylamine, Ujubdtomk-pgivuqqkfh-xi-apap, Amoxicillin, Food (see comments), Latex, and Sulfa antibiotics FAMILY HISTORY: Family history of renal disease? no Family History Problem Relation Name Age of Onset Diabetes Mother Diabetes Grandfather (Maternal) Diabetes Uncle (Unspecified) maternal Heart Disorder Father aneyurism Heart Disorder Grandmother (Paternal) aneyurism SOCIAL HISTORY: Social History Tobacco Use Smoking status: Never Smokeless tobacco: Never Vaping Use Vaping status: Never Used Substance Use Topics Alcohol use: No Drug use: Never ROS: See Hpi. She had her eyes closed and did not answer my questions review of systems not possible to obtain History of NSAID: No History of exposure to IV contrast: No Denies any other symptoms, all other ROS are negative. PHYSICAL EXAMINATION: Most Recent Vital Signs: BP: 116 mmHg/56 mmHg (11/17/231523) Pulse: 72 (11/17/231523) Resp: 18 (11/17/231523) Temp: 36.22 C (11/17/231523) Temp Summary: Temp Min: 35.6 C (96.1 F) Max: 36.6 C (97.9 F) SpO2: 100 % (11/17/231523) O2 flow rate: 2 L/MIN (11/17/231523) Supplemental O2 Delivery: Nasal Cannula (11/17/231523) Vital Signs Last 24 Hours: Systolic BP: Most Recent Systolic BP Av.2 mmHg Min: 105 mmHg Max: 143 mmHg Temperature: Most Recent Temperature Av.2 C Min: 35.61 C Max: 36.61 C Pulse: Pulse Av.1 Min: 61 Max: 80 Respirations: Resp Av.9 Min: 15 Max: 24 SpO2: SpO2 Av.9 % Min: 99 % Max: 100 % I&O Brief: Intake/Output Summary (Last 24 hours) at 11/17/20239 Last data filed at 11/17/2023 1400 Gross per 24 hour Intake 1905.52 ml Output 3150 ml Net -1244.48 ml Physical examination Morbidly obese middle-aged white female who appears chronically ill. She did not follow my command nor answer any questions and she had her eyes closed She is however awake and alert No obvious respiratory distress Blood pressure 100 and 16 x 56 pulse is 72 oxygen saturation 100% Neck is supple can not assess JVD chest bilateral decreased breath sound with poor inspiratory effort CVS S1 and S2 distant no obvious murmur rub or gallop heard Abdomen is morbidly obese some abdominal wall edema Extremities shows 2 to 3+ edema with chronic skin changes LABS: Labs reviewed as indicated below: CBC trend with low hemoglobin renal panel with worsening BUN and creatinine potassium was high on admission. Sodium was low IMAGING: Chest x-ray foot x-ray CT abdomen and pelvis without contrast and CT lower extremity notedand reviewed. IMPRESSION: This is a 63 year old female with complicated medical history and extensive comorbid disease with a very poor baseline health now admitted with symptomatic anemia worsened kidney functionon background CKD can possible infection of unclear source I have been consulted for the following 1. Acute on chronic kidney disease 2. Hyponatremia 3. Hyperkalemia 4. Volume overload --------patient has had multiple recent hospitalization and acute events which makes it very hard to establish a true baseline kidney function. Would call made to creatinine as her baseline. On admission her creatinine was 3.7 and BUN was 146 both of which are significantly more elevated than baseline. After blood transfusion and some Lasix labs actually looks better this morning. Sodium has gone up with IV Lasix potassium has gone down and BUN and creatinine both has gone down. She is making lot more urine all of these are significant positive findings. It is very hard to assess her true fluid status as it appear she has obesity related lymphedema. Given that labs are improving I would continue the current management of Lasix IV if blood transfusionand otherwise Bumex and oral metolazone. She is pretty much getting the same dose as home We do have to be careful with the use of IV antibiotics specially vancomycin and appropriately check the drug level and adjust accordingly. Her long-term renal prognosis is quite poor but for the time being it does not appear she needs dialysis but she is not completely out of the danger yet. Hemoglobin was significantly less than her baseline likely secondary to superimposed infection was makes anemia worse. She also has anemia of CKD at baseline. Reviewed gastroenterology note which says no active GI bleeding Continue daily labs Continue input output charting Continue to avoid nephrotoxic agents including contrast NSAIDs Check appropriate drug level for example of vancomycin and try to keep the level less than 20 Will continue to follow Thanks for the consult Everette Bustos MD * Felicitas Skelton DO - 11/17/2023 3:13 PM EDTAssociated Order(s): Cardiology Consult IP Cardiology CONSULT [facility] [id number] Name: Alexandria Smith Location: [facility] [address]30[address]/W Date: 11/17/2023 Time: 3:13 PM Cardiology Consult IP Consult performed by: Felicitas Skelton DO Consult ordered by: Bernabe Gallagher MD REQUESTING SERVICE: Hospitalist REASON FOR CONSULT: elevated troponin HPI: Pt presents due to fevers, abdominal pain and black loose stools Pt found to have severe anemia and got PRBC with IV lasix afterwards Her troponin was elevated so cardiology was consulted Pt denies any chest pain and SOB She is still fatigued Has not had a bowel movement PAST MEDICAL HISTORY: Past Medical History: Diagnosis [...] 06/06/2023 BIOPSY BONE NEEDLE SUPERFICIAL performed by Lynentte Rasmussen DPM at OR [facility] INFORMATION wisdom teeth removed INJECTION CERVICAL/THORACIC 06/26/2014 INJECTION SPINE LUMBAR CERVICAL OR THORACIC performed by Héctor Rios DO at OR [facility] INJECTION CERVICAL/THORACIC 07/10/2014 INJECTION SPINE LUMBAR CERVICAL OR THORACIC performed by Héctor Rios, DO at OR [facility] KNEE ARTHROSCOPY/REPAIR LIGAMENT 1998 Knee Scope,Aid Ant Cruciate Repair x 2 FAMILY HISTORY: Family History Problem Relation Name Age of Onset Diabetes Mother Diabetes Grandfather (Maternal) Diabetes Uncle (Unspecified) maternal Heart Disorder Father aneyurism Heart Disorder Grandmother (Paternal) aneyurism SOCIAL HISTORY: Social History Tobacco Use Smoking status: Never Smokeless tobacco: Never Vaping Use Vaping status: Never Used Substance Use Topics Alcohol use: No Drug use: Never ALLERGIES: Clarithromycin, Dextromethorphan, Doxylamine, Hpmuocfqg-kunqvympqo-gk-apap, Amoxicillin, Food (see comments), Latex, and Sulfa antibiotics ROS: Review of Systems Constitutional: Positive for activity change, chills, fatigue and fever. Negative for unexpected weight change. HENT: Negative for postnasal drip, rhinorrhea and sinus pressure. Eyes: Negative for visual disturbance. Respiratory: Negative for shortness of breath. Cardiovascular: Negative for chest pain, palpitations and leg swelling. Gastrointestinal: Positive for abdominal pain, blood in stool, diarrhea and nausea. Negative for constipation and vomiting. Genitourinary: Negative for dysuria and hematuria. Musculoskeletal: Positive for gait problem. Skin: Positive for wound. Negative for rash. Neurological: Positive for dizziness, weakness and light-headedness. Negative for syncope. Current Facility-Administered Medications Medication Dose Route Frequency Provider amitriptyline (Elavil) tab 25 mg 25 mg Oral QHS Renzo Diop MD [START ON 11/18/2023] pantoprazole (Protonix) tab 40 mg 40 mg Oral Before breakfast Renzo Diop MD Acetaminophen (Tylenol) tab 975 mg 975 mg Oral Q6H PRN Maw, Min MD Bernabe Albuterol Sulfate (Proventil) (2.5 MG/3ML) 0.083% inhalation solution 2.5 mg 2.5 mg Nebulizer Q4H PRN Elvia Mclean PA-C Bumetanide (Bumex) tab 2 mg 2 mg Oral BID(AM/PM) Maw, Min MD Bernabe Cetirizine (ZyrTEC) oral solution 5 mg 5 mg Oral Daily(AM) Maw, Min MD Bernabe CYANOCOBALAMIN (vitamin B-12) tab 500 mcg 500 mcg Oral Daily(AM) Elvia Mclean PA-C dextrose 50% inj 25 mL 25 mL IV Push PRN Maw, Min MD Bernabe dextrose 50% inj 50 mL 50 mL IV Push PRN Maw, Min MD Bernabe [START ON 11/18/2023] Drug Level Check - Vancomycin Random Does Not Apply Once Timed Lab 2hrs Maw, Min MD Bernabe Ferrous Sulfate (Feosol) tab 325 mg 325 mg Oral Daily Noon Elvia Mclean PA-C folic acid tab 1 mg 1 mg Oral Daily(AM) Elvia Mclean PA-C glucagon (Glucagen) inj 1 mg 1 mg Intramuscular PRN Maw, Min MD Bernabe Glucose (Glutose 15) 40 % gel 15 g of glucose 15 g of glucose Oral PRN Maw, Min MD Bernabe Glucose (Glutose 15) 40 % gel 30 g of glucose 30 g of glucose Oral PRN Maw, Min MD Bernabe glucose chew tab 16 g 16 g Oral PRN Maw, Min MD Bernabe insulin aspart (NovoLOG) inj Subcutaneous With Meals and HS Maw, Min MD Bernabe Insulin Glargine (Lantus) inj 10 Units 10 Units Subcutaneous HS insulin Maw, Min MD Bernabe levothyroxine (Levoxyl) tab 175 mcg 175 mcg Oral at 0630 Maw, Min MD Bernabe meropenem in NSS (Merrem) ivpb 500 mg 500 mg IV Piggyback Q12H NOW Maw, Min MD Bernabe metOLazone (Zaroxolyn) tab 2.5 mg 2.5 mg Oral Daily(AM) Maw, Min MinMD morphine sulfate inj 1 mg 1 mg IV Push Q3H PRN Maw, Min MD Bernabe ondansetron (Zofran) inj 4 mg 4 mg IV Push Q6H PRN Maw, Min MD Bernabe sodium chloride 0.9 % flush/inj 3 mL 3 mL IV Push PRN Maw, Min MD Bernabe vancomycin per pharmacy order Does Not Apply Per Pharmacy Xanderw, Min MD Bernabe PHYSICAL EXAMINATION: Most Recent Vital Signs: BP: 139 mmHg/60 mmHg (11/17/23 111) Pulse: 78 (11/17/23 111) Resp: 18 (11/17/23 111) Temp: 36.11 C (11/17/23 111) Temp Summary: Temp Min: 35.6 C (96.1 F) Max: 36.6 C (97.9 F) SpO2: 100 % (11/17/23 111) O2 flow rate: 2 L/MIN (11/17/23 111) Supplemental O2 Delivery: Nasal Cannula (11/17/231115) Physical Exam Vitals and nursing note reviewed. Constitutional: General: She is awake. Appearance: She is well-developed. She is obese. HENT: Head: Normocephalic and atraumatic. Eyes: General: No scleral icterus. Extraocular Movements: Extraocular movements intact. Neck: Vascular: Normal carotid pulses. No carotid bruit or JVD. Cardiovascular: Rate and Rhythm: Normal rate and regular rhythm. Pulses: Carotid pulses are 2+ on the right side and 2+ on the left side. Radial pulses are 2+ on the right side and 2+ on the left side. Posterior tibial pulses are 2+ on the right side and 2+ on the left side. Heart sounds: S1 normal and S2 normal. Murmur heard. Pulmonary: Effort: Pulmonary effort is normal. Breath sounds: Normal breath sounds. No decreased breath sounds, wheezing, rhonchi or rales. Abdominal: General: Abdomen is protuberant. Musculoskeletal: Cervical back: Neck supple. Right lower leg: Edema present. Left lower leg: Edema present. Skin: General: Skin is warm and dry. Neurological: General: No focal deficit present. Mental Status: She is alert and oriented to person, place, and time. Psychiatric: Attention and Perception: Attention normal. Mood and Affect: Mood normal. Speech: Speech normal. Behavior: Behavior normal. Behavior is cooperative. Thought Content: Thought content normal. Cognition and Memory: Cognition normal. Judgment: Judgment normal. RESULTS: ECGS: 11/16/2023: Unclear atrial rhythm possibly low amplitude p waves vs an accelerated junctional rhythm 78bpm RBBB LAFB LVH 10/03/2023: Unclear atrial rhythm possibly low amplitude p waves vs an accelerated junctional rhythm 84bpm RBBB LAFB 08/15/2023: SR 74bpm RBBB LAFB 06/17/2023: SR 76bpm 1st degree AV block RBBB 06/03/2023: Unclear atrial rhythm possibly low amplitude p waves vs an accelerated junctional rhythm 60bpm RBBB 06/03/2023: Unclear atrial rhythm possibly low amplitude p waves vs an accelerated junctional rhythm 62bpm RBBB Echocardiogram: 06/04/2023: The qualitative LV ejection fraction is 55-59% (normal). The right ventricular cavity is mildly dilated. The right ventricular systolic function is normal. Mild mitral stenosis is present. Mild mitral regurgitation is present. Mild tricuspid regurgitation is present. Moderate pulmonary hypertension is present. Nuclear Stress Test: 06/19/2023: This is a limited study with only stress images. Patient refused rest imaging. Stress perfusion -Probably normal. small area of basal inferior wall mild intensity defect. Restingimages are not available so ischemia can not be assessed. Gated SPECT images reveals normal myocardial thickening and wall motion. LABS: Labs reviewed as indicated below: Component Latest Ref Rng 11/09/2023 11/16/2023 11/17/2023 BUN 6 - 20 mg/dL 141 (H) 146 (H) 131 (H) BUN 146 (H) Creatinine 0.5 - 1.0 mg/dL 3.9 (H) 3.7 (H) 3.2 (H) Creatinine 3.7 (H) Estimated Glomerular Filtration Rate >=60 mL/min 12 (L) 13 (L) 16 (L) Estimated Glomerular Filtration Rate 13 (L) Sodium 135 - 146 mmol/L 130 (L) 129 (L) 132 (L) Sodium 132 (L) Potassium 3.5 - 5.1 mmol/L 4.9 4.8 4.5 Potassium 5.5 (H) Chloride 98 - 107 mmol/L 91 (L) 89 (L) 92 (L) Chloride 91 (L) CO2 22 - 32 mmol/L 24 23 24 CO2 25 Anion Gap 7 - 15 mmol/L 15 17 (H) 16 (H) Anion Gap 16 (H) Glucose 70 - 120 mg/dL 112 190 (H) 161 (H) Glucose 128 (H) Albumin 3.8 - 5.0 g/dL 2.1 (L) 2.0 (L) 2.2 (L) Albumin 2.2 (L) AST 10 - 35 U/L 40 (H) 20 17 AST 24 Alkaline Phosphatase 35 - 130 U/L 248 (H) 223 (H) 224 (H) Alkaline Phosphatase 244 (H) Bilirubin, Total <=1.2 mg/dL 0.2 <0.2 0.4 Bilirubin, Total 0.2 Calcium 8.4 - 10.2 mg/dL 7.7 (L) 8.2 (L) 8.5 Calcium 7.6 (L) Protein 6.0 - 8.3 g/dL 5.5 (L) 6.3 6.8 Protein 5.4 (L) ALT 10 - 35 U/L 18 11 10 ALT 13 WBC 4.00 - 10.80 K/uL 12.10 (H) 13.86 (H) 13.81 (H) Neutrophils % 40.0 - 75.0 % 78.0 (H) 77.4 (H) 79.7 (H) Lymphocytes % 18.0 - 42.0 % 13.1 (L) 12.2 (L) 9.8 (L) Monocytes % 1.0 - 11.0 % 5.6 6.4 6.5 Eosinophils % 0.0 - 6.0 % 2.4 2.1 2.3 Basophils % 0.0 - 2.0 % 0.2 0.1 0.3 Immature Granulocytes % 0.0 - 2.0 % 0.7 1.8 1.4 Absolute Neutrophils 1.80 - 7.70 K/uL 9.43 (H) 10.72 (H) 11.00 (H) Absolute Lymphocytes 1.00 - 4.80 K/ul 1.59 1.69 1.36 Absolute Monocytes 0.00 - 1.10 K/uL 0.68 0.89 0.90 Absolute Eosinophils 0.00 - 0.70 K/uL 0.29 0.29 0.32 Absolute Basophils 0.00 - 0.20 K/uL 0.02 0.02 0.04 Absolute Immature Granulocytes 0.00 - 0.20 K/uL 0.09 0.25 (H) 0.19 WBC 4.00 - 10.80 K/uL 12.10 (H) 13.86 (H) 13.81 (H) WBC 15.17 (H) RBC 3.85 - 5.15 M/uL 2.40 2.24 2.93 RBC 2.22 HGB 12.0 - 15.3 g/dL 6.9 (L) 6.3 (L) 8.6 (L) HGB 6.3 (L) 8.1 (L) HGB 6.8 (L) HCT 36.0 - 45.2 % 20.7 (L) 19.8 (L) 25.2 (L) HCT 19.4 (L) MCV 81.5 - 97.5 fL 86.3 88.4 86.0 MCV 87.4 MCH 27.0 - 34.0 pg 28.8 28.1 27.6 MCH 28.4 MCHC 32.0 - 36.0 g/dL 33.3 31.8 32.1 MCHC 32.5 RDW 11.5 - 15.5 % 14.6 14.9 14.6 RDW 14.8 PLT 140 - 400 K/uL 405 (H) 470 (H) 444 (H) PLT 469 (H) MPV 6.6 - 11.1 fL 10.9 10.2 9.6 MPV 10.4 nRBCs <=0 /100 WBCs 0 0 0 nRBCs 0 CRP (Inflammatory Marker) <=5 mg/L 137 (H) 145 (H) Procalcitonin <0.10 ng/mL 0.22 (H) Troponin T, High Sensitivity <=14 ng/L 419 (HH) 320 (HH) Troponin T, High Sensitivity 427 (HH) 332 (HH) Magnesium 1.5 - 2.6 mg/dL 1.8 Phosphorus 2.5 - 4.8 mg/dL 6.9 (H) IMAGING: CXR: 11/17/2023: Independently interpreted by myself No pulmonary vascular congestion CT LE 11/17/2023: IMPRESSION: Diffuse stranding in the subcutaneous tissue of the thigh, especially inner thigh. Findings consistent with inflammatory changes/cellulitis or bruising. No drainable fluid collection identified. CT abd/pelvis: 11/17/2023: 1. Overall nonobstructive bowel gas pattern. No focal bowel wall thickening identified 2. Nonspecific mild stranding in the right lower quadrant of the mesentery. Shotty mesenteric lymph nodes. Question mild mesenteric adenitis 3. Appendix not definitively identified 4. Small right pleural effusion, decreased from previous 5. Other chronic changes as in findings. 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 Chronic heart failure with preserved EF-NYHA Class III on bumex and metolazone CKD stabe IV has indwelling folley HTN DM Black stools Acute osteomyelitis of Right calcaneum heal (pseudomonas) Sacral ulcer Morbid obesity Chronic anemia H/o C-Diff on 11/06/2023 PLAN: -Moderate elevated troponins in the setting of acute anemia from possible GIB -Due to patient's multiple co-morbidities she is not a candidate for a cardiac catheterization -I think her troponin is from demand ischemia; not a NSTEMI -She got IV lasix after PRBC but then I agree can be back on her home bumex and metolazone -Kidney function is stable -Difficult to really say what her true atrial rhythm is but her ECGs are stable from prior ones -Will get an echo to ensure no wall motion abnormalities -If GI needs to do any procedures from a cardiac perspective she is at a moderate risk -Please re-consult as necessary I spent a total of 80 minutes coordinating, documenting, and providing care for this patient excluding time spent in the performance of separately billed services or time spent by another provider/QHP. * Zoraida Alcantara, PT - 11/17/2023 10:17 AM EDTAssociated Order(s): ADULT PHYSICAL THERAPY CONSULT IP GENERAL EVALUATION - Physical Therapy [address] [id number] Name: Alexandria Smith Location: [facility] [id number]/[id number] Date: 11/17/2023 Time: 1016 Alexandria Smith is a/an 63 year old female. Patient Status: Inpatient Insurance: Payor: [employer] MEDICARE ADVANTAGE Plan: [employer] MEDICARE ADVANTAGE PPO Product Type: *No Product type* Payor: First Coverage [place] Plan: [employer] [facility] Product Type: HMO Patient Seen: at bedside. Patient Identified By: Name, ID Band and Date Diagnosis: sepsis, anemia (11/17/23 1017) Status of treatment: Evaluation completed (11/17/23 101) Orders: PT evaluation and treatment (11/17/23 101) Weight Bearing Status: Weight bearing as tolerated;RLE (per podiatry note) (11/17/23 101) Precautions: Alarms;Falls;Pruett;Oxygen;Isolation;Safety (11/17/23 101) Total Treatment Time--free text: 40 (11/17/23 101) As per H&P: "63 yo F with PMH of morbid obesity BMI 45.09, stage 4 CKD, HTN, DM2, fibromyalgia,, hypothyroid, chronic anemia with baseline Hb between 7 to 8 , HFpEF, chronically on 2 L NC, C.diffinfection on 11/05, OM of right heel ( pseudomonas ) recently completed meropenem on 11/13/23 presented from [facility]y., pale .She reported feeling sick for one week with abdominal pain, nausea, diarrhea. Had fever of 102 F yesterday. She noted to have sleepy during conversation and stimulate multiple times to get the answers. She had a black loose bowel movement and small open multiple sacral decubitus ulcers and right heel ulcer. Also noted focal redness, indurated , tenderness in left and right inner thighs. Denies chest pain, shortness of breath. Her Legs are swollen but she said this is her baseline. Work up showed leucocytosis, severe anemia Hb 6.3, hyponatremia 129, BUN/.Cr- 146/3.7 , pro calcitonin 0.22, CRP 147 , UA positive for esterase ., bacteruria , WBC's, troponin 427 and 419. CTAP was unremarkable for bowel obstruction, no focal thickening identified. CT LE was unremarkablefor fluid collection. EKG showed wide QRS complex which is pretty much the same as prior EKG." R foot X ray: IMPRESSION: Subtle irregularity of the bony cortex along the plantar surface of the calcaneus may represent sequelae of known osteomyelitis. Soft tissue swelling. Past Medical History: Past Medical History: Diagnosis [...] performed by Lynnette Rasmussen DPM at OR [facility] INFORMATION wisdom teeth removed INJECTION CERVICAL/THORACIC 06/26/2014 INJECTION SPINE LUMBAR CERVICAL OR THORACIC performed by Héctor Rios, DO at OR [facility] INJECTION CERVICAL/THORACIC 07/10/2014 INJECTION SPINE LUMBAR CERVICAL OR THORACIC performed by Héctor Rios, DO at OR [facility] KNEE ARTHROSCOPY/REPAIR LIGAMENT 1998 Knee Scope,Aid Ant Cruciate Repair x 2 Subjective: "I have been doing my therapy in bed recently." Social History/Disposition Lives with: Caregiver / Attendant (11/17/231016) Assistance available: Yes (02/10 from staff at [facility]) (11/17/231016) Dwelling type: correction facility (11/17/231016) Entry steps: None (11/17/231016) Inside steps: None (11/17/231016) Bedroom location: 1st floor (11/17/231016) Bath location: 1st floor full bath (11/17/231016) Prior Level of Function Reported by: Patient;Chart review (11/17/231016) Ambulation: Non-ambulatory with manual wheelchair;Transfer via (11/17/231016) Transfer Via: Stand/pivot with assist (11/17/231016) Devices at home: Wheelchair;Rolling walker (11/17/231016) Observations Consciousness: Alert (11/17/231016) Orientation: Oriented times 4 (11/17/231016) Psychosocial: Patient can communicate basic needs;Patient can converse in a social setting (11/17/231016) Other Findings: Yes (11/17/231016) Findings: Light touch sensation;Edema;Tone (11/17/231016) Light Touch Sensation Results: Intact (11/17/231016) Edema Results: Impaired;LLE;RLE (11/17/231016) Tone Results: Intact;LLE;RLE (11/17/231016) Sitting Posture: Forward head;Rounded shoulders;Posterior lean (11/17/231016) Standing Posture: Not assessed (11/17/231016) Pain: Patient has complaints of pain. Pain located sacral region. 11/19 Staff Notified Range of Motion Range of Motion: WFL, except (11/17/231016) Strength Assessment Strength Assessment: Deficits noted (11/17/231016) WNL, except: LLE;RLE (11/17/231016) LLE: Hip;Knee;Ankle (11/17/231016) RLE: Hip;Knee;Ankle (11/17/231016) P.T. Bed Mobility Roll (Left): Minimal Assistance (11/17/231016) Supine-Sit: Moderate Assistance (11/17/231016) Sit-Supine: Maximal Assistance (x2) (11/17/231016) Transfers Sit-Stand: Not Tested (11/17/231016) Stand-Sit: Not Tested (11/17/231016) Sitting balance fair at EOB Patient and or Family Goal(s): to get well and to return home Patient Education Review of Precautions: Safety;Fall (use of call villeda for assistance, pt verbalizes understanding) (11/17/231016) Safety Awareness: Patient verbalizes insight of current deficits;Patient demonstrates carryover of insight during functional tasks;Patient can communicate basic needs (11/17/231016) Preferred learning method: Combination (11/17/231016) Barriers to learning: Medical Status (11/17/231016) Method of Education: Verbalized to patient;Patient demonstrated task (11/17/231016) Topic of Education: Safety with mobility, Goals/plan of care, Fall prevention, and discharge planning. Method of Education: Verbal discussion and explanation provided to pt regarding goals for PT consult, safety and fall prevention strategies, discharge planning: verbalized understanding and or agreement of this information and demonstrated the exercise and or task Treatment Provided: Therapeutic Activities 18 minutes: bed mobility training Sitting balance/tolerance at EOB Therapeutic Exercises: 10 minutes Evaluation Moderate Complexity 12 minutes - 46501: Patient was cooperative, pleasant, alert, and willing to participate to tolerancea during treatment session. Moderate complexity evaluation performed and 1-2 personal factors or comorbidities were identified that will impact plan of care, includinglives alone at home, obesity, and this admission fosr sepsis, anemia. Patient presents with limitations in range of motion, strength, bed mobility, transfers, gait, balance, endurance, and safety, which will impact plan of care. These limitations will be addressed by the goals set for this patient. Alarm Status Patient positioned in: Bed (11/17/231016) With: Bed alarm intact and functioning and call villeda in reach (11/17/231016) Treatment Status: Treatment at bedside (11/17/231016) Goals(within 10 sessions): Demonstrate Bed Mobility with: Supine <> Sit: moderate assistance (pt does 50%) Demonstrate Transfers with: Sit <> stand: maximal assistance (pt does 25%) Bed to chair: maximal assistance (pt does 25%) Increase Safety: with use of AD and assistance for fall prevention strategies Assessment: PT consult completed with min A for L rolling with use of bed rail and mod A for supineto sit EOB with fair sitting balance with post lean. Seated TE to tolerance while seated, but limited by involuntary movements in B LEs. Pt tolerates sitting at EOB x 6 min, but unable to maintain static sitting without assistance. Pt returned to supine and repositioned in bed with max A of 2. Supi ne TE for APs, glut sets, quad sets. Would consider post-acute care services which may include homehealth, snf, outpatient therapy, or inpatient rehab. The level of care will be determined in collaboration with the patient, family/caregiver, and care team members. [facility] of 9 Deficits requiring P.T. treatment needs: Safety;Mobility;Balance;Weakness;Endurance;Range of motion;Lower extremity strength (11/17/23 1017) Equipment Needs: Treatment Plan: Bed mobility training, Transfer training, and Educate on safety with use of AD and assistance for OOB mobility. Anticipated Frequency (on eval): 3 to 5 times per week (11/17/23 1017) AM PAC Score with Stairs: 9 * Lynnette Rasmussen, KING - 11/16/2023 6:44 PM EDTAssociated Order(s): PODIATRY CONSULT IP Images from the original note were not included. Podiatry CONSULT [address] [id number] Name: Alexandria Smith Location: [facility] [address]30[address]/W Date: 11/16/2023 Time: 6:58 PM REQUESTING SERVICE: Internal Medicine REASON FOR CONSULT: R calc OM HPI: Alexandria Smith is a 63 year-old diabetic female with a PMHx significant for HTN, PERLITA. Patient admitted today for CC of sepsis. Podiatry consulted for R calc OM. Patient last seen by podiatry 06/11/2023 [facility] admission, at which time R calc biopsy was performed, which showed chronic OM. Patient was discharged on PICC line and was to follow up with podiatry in [facility]. Patient states she has been seeing [facility] podiatry regularly, last seen on 11/14/2023, at which time no signs of infection were noted to the heel wound, Wound vac was applied. Patient states she had heel surgery performed, unsure as to when. According to chart check, MRI from 10/04/2023 shows calc resection, so sx must have been performed between discharge in June and end of September. Chart check also shows heel bone pathology was send/received mid/late July, suggesting surgery was likely performed near that time, but unclear as to date or whether clean margin was sent. Patient states she lives in facility. Patient states she uses a wheelchair to ambulate at baseline. Patient denies smoking. Patient's WBC is 13.86. Vitals upon presentation were found to be Blood pressure 125/56, pulse 80, temperature 36.2 C(97.2 F), temperature source Tympanic, resp. rate 20, height 1.575 m (5' 2"), weight 111.9 kg (246 lb 9.6 oz), last menstrual period 11/22/2002, SpO2 100%.. Patient denies F/C/N/V/SOB/chest pain/calf pain. PAST MEDICAL HISTORY: Past Medical History: Diagnosis [...] performed by Lynnette Rasmussen DPM at OR [facility] INFORMATION wisdom teeth removed INJECTION CERVICAL/THORACIC 06/26/2014 INJECTION SPINE LUMBAR CERVICAL OR THORACIC performed by Héctor Marvin Cousins, DO at OR [facility] INJECTION CERVICAL/THORACIC 07/10/2014 INJECTION SPINE LUMBAR CERVICAL OR THORACIC performed by Héctor Marvin Cousins, DO at OR [facility] KNEE ARTHROSCOPY/REPAIR LIGAMENT 1998 Knee Scope,Aid Ant Cruciate Repair x 2 FAMILY HISTORY: Family History Problem Relation Name Age of Onset Diabetes Mother Diabetes Grandfather (Maternal) Diabetes Uncle (Unspecified) maternal Heart Disorder Father aneyurism Heart Disorder Grandmother (Paternal) aneyurism SOCIAL HISTORY: Social History Tobacco Use Smoking status: Never Smokeless tobacco: Never Vaping Use Vaping status: Never Used Substance Use Topics Alcohol use: No Drug use: Never ALLERGIES: Clarithromycin, Dextromethorphan, Doxylamine, Vueacmour-zswzzamugu-ln-apap, Amoxicillin, Food (see comments), Latex, and Sulfa antibiotics ROS: Negative unless otherwise stated. PHYSICAL EXAMINATION: Most Recent Vital Signs: BP: 125 mmHg/56 mmHg (11/16/23 1720) Pulse: 80 (11/16/23 1720) Resp: 20 (11/16/23 1720) Temp: 36.22 C (11/16/231719) Temp Summary: Temp Min: 36.2 C (97.2 F) Max: 37.3 C (99.1 F) SpO2: 100 % (11/16/231719) O2 flow rate: 2 L/MIN (11/16/231719) Supplemental O2 Delivery: Nasal Cannula (11/16/231719) Constitutional: Negative for N/V/F/C. HENT: Negative. Eyes: Negative. Respiratory: Negative. Cardiovascular: Negative. Gastrointestinal: Negative. Endocrine: Negative. Musculoskeletal: Negative for calf pain. Neurological: Negative. Skin: R heel wound Lower Extremity Physical Exam: Vasc: DP pulses +0/4 b/l LE. PT pulses + 0/4 b/l LE. HEEL CURVER <3 seconds to all digits of b/l LE. Nonpitting edema present to b/l LE. Skin temperature gradient warm to warm from proximal to distal b/l LE. Pedal hair absent b/l. Telangiectasias absent b/l LE. Ortho: Pain absent on palpation of R heel wound. Pain absent on palpation of proximal posterior calf muscle b/l LE. AROM of ankles intact and without pain b/l. AROM of digits intact and without pain b/l LE. No palpable osseous deformities or soft tissue masses b/l LE. Neuro: MMT 5/5 for all LE muscle groups at ankles b/l. Gross motor function intact b/l LE. Light touch sensation intact b/l LE. Protective sensation intact b/l LE. Negative tinel and valleix signs atlevel of tarsal tunnel b/l LE. Derm: R heel wound measuring 1x1x0.5cm to level of subcutaneous tissue, granular base, no probe to bone. No purulence, malodor, bogginess or fluctuance. No erythema or excessive warmth. Absence of interdigital macerations B/L LE. Absence of ecchymosis B/L LE. LABS/MICRODATA: Labs reviewed as indicated below: Recent Results (from the past 24 hour(s)) URINALYSIS, REFLEX TO MICROSCOPIC Collection Time: 11/15/23 9:45 PM Result Value Ref Range Color, Urine Yellow Light Yellow, Yellow, Dark Yellow Clarity, Urine Slightly Cloudy (A) Clear Glucose, Urine 100 (A) Negative mg/dL Bilirubin, Urine Moderate (A) Negative Ketone, Urine Negative Negative mg/dL Specific [place], Urine 1.014 1.003 - 1.030 Blood, Urine Large (A) Negative pH, Urine 7.0 5.0 - 7.5 Units Protein, Urine 100 (A) Negative mg/dL Urobilinogen, Urine 0.2 0.2, 1.0 mg/dL Nitrite, Urine Negative Negative Esterase, Urine Moderate (A) Negative MICROSCOPIC EXAM, URINE Collection Time: 11/15/23 9:45 PM Result Value Ref Range RBC, Urine 6-9 (A) 0 - 2 /HPF WBC, Urine 50+ (A) 0 - 2 /HPF Bacteria, Urine >200 (A) 0 - 25 /HPF Yeast, Urine Present (A) None /HPF COMPREHENSIVE METABOLIC PANEL Collection Time: 11/16/23 4:53 AM Result Value Ref Range BUN 146 (H) 6 - 20 mg/dL Creatinine 3.7 (H) 0.5 - 1.0 mg/dL Estimated Glomerular Filtration Rate 13 (L) >=60 mL/min Sodium 132 (L) 135 - 146 mmol/L Potassium 5.5 (H) 3.5 - 5.1 mmol/L Chloride 91 (L) 98 - 107 mmol/L CO2 25 22 - 32 mmol/L Anion Gap 16 (H) 7 - 15 mmol/L Glucose 128 (H) 70 - 120 mg/dL Albumin 2.2 (L) 3.8 - 5.0 g/dL AST 24 10 - 35 U/L Alkaline Phosphatase 244 (H) 35 - 130 U/L Bilirubin, Total 0.2 <=1.2 mg/dL Calcium 7.6 (L) 8.4 - 10.2 mg/dL Protein 5.4 (L) 6.0 - 8.3 g/dL ALT 13 10 - 35 U/L CRP (INFLAMMATORY MARKER) Collection Time: 11/16/23 4:53 AM Result Value Ref Range CRP (Inflammatory Marker) 145 (H) <=5 mg/L CBC Collection Time: 11/16/23 4:53 AM Result Value Ref Range WBC 15.17 (H) 4.00 - 10.80 K/uL RBC 2.22 3.85 - 5.15 M/uL HGB 6.3 (L) 12.0 - 15.3 g/dL HCT 19.4 (L) 36.0 - 45.2 % MCV 87.4 81.5 - 97.5 fL MCH 28.4 27.0 - 34.0 pg MCHC 32.5 32.0 - 36.0 g/dL RDW 14.8 11.5 - 15.5 % PLT 469 (H) 140 - 400 K/uL MPV 10.4 6.6 - 11.1 fL nRBCs 0 <=0 /100 WBCs ERYTHROCYTE SEDIMENTATION RATE (ESR) Collection Time: 11/16/23 4:53 AM Result Value Ref Range ESR 38 (H) <30 mm/hour BILL ONLY VENIPUNCTURE Collection Time: 11/16/23 4:53 AM Result Value Ref Range Bill-Only Venipuncture Requisition specimen received with venipuncture. CLOSTRIDIUM DIFFICILE, PCR Collection Time: 11/16/23 12:36 PM Result Value Ref Range Stool Consistency Semi-liquid Clostridium difficile Result Negative Negative. No C. difficile toxin B gene DNA detected by PCR (Amplified Probe). COMPREHENSIVE METABOLIC PANEL Collection Time: 11/16/23 12:36 PM Result Value Ref Range BUN 146 (H) 6 - 20 mg/dL Creatinine 3.7 (H) 0.5 - 1.0 mg/dL Estimated Glomerular Filtration Rate 13 (L) >=60 mL/min Sodium 129 (L) 135 - 146 mmol/L Potassium 4.8 3.5 - 5.1 mmol/L Chloride 89 (L) 98 - 107 mmol/L CO2 23 22 - 32 mmol/L Anion Gap 17 (H) 7 - 15 mmol/L Glucose 190 (H) 70 - 120 mg/dL Albumin 2.0 (L) 3.8 - 5.0 g/dL AST 20 10 - 35 U/L Alkaline Phosphatase 223 (H) 35 - 130 U/L Bilirubin, Total <0.2 <=1.2 mg/dL Calcium 8.2 (L) 8.4 - 10.2 mg/dL Protein 6.3 6.0 - 8.3 g/dL ALT 11 10 - 35 U/L PROCALCITONIN Collection Time: 11/16/23 12:36 PM Result Value Ref Range Procalcitonin 0.22 (H) <0.10 ng/mL TROPONIN T, HIGH SENSITIVITY Collection Time: 11/16/23 12:36 PM Result Value Ref Range Troponin T, High Sensitivity 427 (HH) <=14 ng/L PT INR Collection Time: 11/16/23 12:36 PM Result Value Ref Range Prothrombin Time 19.0 (H) 11.6 - 15.2 seconds INR 1.6 (H) 0.8 - 1.2 APTT Collection Time: 11/16/23 12:36 PM Result Value Ref Range aPTT 38 21 - 38 seconds TYPE AND SCREEN Collection Time: 11/16/23 12:36 PM Result Value Ref Range ABO A Rh Positive Red Blood Cell Antibody Screen Negative Specimen Expiration Date 11/19/2023 23:59 CBC Collection Time: 11/16/23 12:36 PM Result Value Ref Range WBC 13.86 (H) 4.00 - 10.80 K/uL RBC 2.24 3.85 - 5.15 M/uL HGB 6.3 (L) 12.0 - 15.3 g/dL HCT 19.8 (L) 36.0 - 45.2 % MCV 88.4 81.5 - 97.5 fL MCH 28.1 27.0 - 34.0 pg MCHC 31.8 32.0 - 36.0 g/dL RDW 14.9 11.5 - 15.5 % PLT 470 (H) 140 - 400 K/uL MPV 10.2 6.6 - 11.1 fL nRBCs 0 <=0 /100 WBCs DIFFERENTIAL, AUTOMATED Collection Time: 11/16/23 12:36 PM Result Value Ref Range WBC 13.86 (H) 4.00 - 10.80 K/uL Neutrophils % 77.4 (H) 40.0 - 75.0 % Lymphocytes % 12.2 (L) 18.0 - 42.0 % Monocytes % 6.4 1.0 - 11.0 % Eosinophils % 2.1 0.0 - 6.0 % Basophils % 0.1 0.0 - 2.0 % Immature Granulocytes % 1.8 0.0 - 2.0 % Absolute Neutrophils 10.72 (H) 1.80 - 7.70 K/uL Absolute Lymphocytes 1.69 1.00 - 4.80 K/ul Absolute Monocytes 0.89 0.00 - 1.10 K/uL Absolute Eosinophils 0.29 0.00 - 0.70 K/uL Absolute Basophils 0.02 0.00 - 0.20 K/uL Absolute Immature Granulocytes 0.25 (H) 0.00 - 0.20 K/uL CRP (INFLAMMATORY MARKER) Collection Time: 11/16/23 12:36 PM Result Value Ref Range CRP (Inflammatory Marker) 147 (H) <=5 mg/L URINALYSIS, REFLEX TO CULTURE (CUP ONLY) Collection Time: 11/16/23 12:50 PM Result Value Ref Range Urinalysis, Reflex to Culture Specimen Specimen collected and received URINALYSIS, REFLEX TO CULTURE Collection Time: 11/16/23 12:50 PM Result Value Ref Range Color, Urine Yellow Colorless, Light Yellow, Yellow, Dark Yellow Clarity, Urine Slightly Cloudy (A) Clear Glucose, Urine Negative Negative mg/dL Bilirubin, Urine Negative Negative Ketone, Urine Negative Negative mg/dL Specific [place], Urine 1.010 1.003 - 1.030 Blood, Urine Small (A) Negative pH, Urine 6.0 5.0 - 7.5 Units Protein, Urine 100 (A) Negative mg/dL Urobilinogen, Urine 0.2 0.2, 1.0 mg/dL Nitrite, Urine Negative Negative Esterase, Urine Large (A) Negative RBC, Urine 0-2 0 - 2 /HPF WBC, Urine 50+ (A) 0 - 2 /HPF Bacteria, Urine >200 (A) 0 - 25 /HPF Yeast, Urine Present (A) None /HPF Culture, Urine LACTATE, WHOLE BLOOD WITH REFLEX IF ABNORMAL Collection Time: 11/16/23 1:06 PM Result Value Ref Range Lactate, Whole Blood 1.2 0.4 - 2.0 mmol/L BLOOD GAS, VENOUS Collection Time: 11/16/23 1:06 PM Result Value Ref Range Temperature 37.0 C pH, Venous 7.369 7.320 - 7.430 units pCO2, Venous 48.2 40.0 - 60.0 mmHg pO2, Venous 36.8 25.0 - 50.0 mmHg Base Excess, Venous 2.2 (H) -2.0 - 2.0 mmol/L HGB 6.7 (L) 12.0 - 15.3 g/dL Oxyhemoglobin, Venous 57.3 40.0 - 85.0 % total Hgb Carboxyhemoglobin, Whole Blood 2.0 (H) <=1.5 % total Hgb Methemoglobin, Whole Blood 0.5 <=1.5 % total Hgb Reduced Hemoglobin, Venous 40.2 % total Hgb O2 Content, Venous 5.5 (L) 7.0 - 18.0 %vol Bicarbonate, Whole Blood 27.1 23.0 - 31.0 mmol/L PREPARE PACKED RED BLOOD CELLS Collection Time: 11/16/23 1:15 PM Result Value Ref Range Unit Product Code M8445W84 Unit Number [id number] Unit ABO A Unit Rh POS Unit Crossmatch Compatible Unit Status IS Unit Blood Type APOS Unit Expiration [id number] Unit Barcode 6200 TROPONIN T, HIGH SENSITIVITY Collection Time: 11/16/23 2:08 PM Result Value Ref Range Troponin T, High Sensitivity 419 (HH) <=14 ng/L AMMONIA Collection Time: 11/16/23 4:20 PM Result Value Ref Range Ammonia <10 (L) 11 - 35 umol/L GLUCOSE METER, POINT OF CARE Collection Time: 11/16/23 6:14 PM Result Value Ref Range Glucose Meter 130 (H) 70 - 120 mg/dL IMAGING/STUDIES: R foot xray 11/16/2023 Resident read: 3 views of the R foot of a skeletally mature individual. Osseous changes to calcaneus appear to be surgically created. No soft tissue emphysema ED 06/04/2023 IMPRESSION and PLAN: Alexandria Smith is a 63 year-old diabetic female admitted today with CC of sepsis. Podiatry has been consulted for R calc OM. R heel wound measuring 1x1x0.5cm to level of subcutaneous tissue, granular base, no probe to bone. Dressed with allevyn. Xray shows no evidence of OM. Patient had calcaneal resection to R heel likely end of July, pathology from surgery shows acute and chronic OM, however unclearwhether any clean margin was sent or attempted. Wound does not appear to be infected at this time, imaging shows no signs of active infection. Although advanced imaging of heel could be obtained, might show false positive in form of reactive changes to bone due to recent surgical intervention. Unlikely that heel is source of current sepsis, however, if was proved to be definitive source, patient would require proximal amputation, as heel resection has already been performed by another surgeon and no further surgical pedal interventions can be safely performed. Nursing communication placed fordaily SWTD. Will continue to follow until definitive source of current sepsis is located. -Pt seen and evaluated with all questions and concerns addressed. -Pt case discussed with Dr. Rasmussen. -WB status: WBAT -Meds: IV meropenem/vanc -Labs and imaging reviewed as above. Xray shows no evidence of OM -R heel wound measuring 1x1x0.5cm to level of subcutaneous tissue, granular base, no probe to bone. -Dressing consisting of allevyn applied to R LE. -NO urgent/emergent need for podiatric surgical intervention at this time. -Patient had calcaneal resection to R heel likely end of July, pathology from surgery shows acute and chronic OM, however unclear whether any clean margin was sent or attempted. -Wound does not appear to be infected at this time, imaging shows no signs of active infection. -Although advanced imaging of heel could be obtained, might show false positive in form of reactivechanges to bone due to recent surgical intervention. -Unlikely that heel is source of current sepsis, however, if was proved to be definitive source, patient would require proximal amputation, as heel resection has already been performed by another surgeon and no further surgical pedal interventions can be safely performed. -Nursing communication placed for daily SWTD. -Will continue to follow until definitive source of current sepsis is located. Thank you for the consult. Dayami Bellamy DPM, PGY3 I did not see the patient, but I have reviewed the resident/fellow physician documentation and was readily available on date of service. * Khloe Radford MD - 11/16/2023 4:58 PM EDTAssociated Order(s): GASTROENTEROLOGY CONSULT IP Consult requested by REF: SELF NO STREET ADDRESS AVAILABLE HPI: 63 year old female seen for anemia. Labs as follows: Latest Reference Range & Units 10/26/23 04:08 11/02/23 04:20 11/05/23 04:30 11/09/23 04:10 11/16/23 04:53 11/16/23 12:36 11/16/23 13:06 HGB 12.0 - 15.3 g/dL 7.2 (L) 7.2 (L) 8.3 (L) 6.9 (L) 6.3 (L) 6.3 (L) 6.7 (L) HCT 36.0 - 45.2 % 22.2 (L) 23.0 (L) 26.1 (L) 20.7 (L) 19.4 (L) 19.8 (L) No history of GI bleed, and no GI symptoms. No anticoagulation. Normotensive in ER, with green stool. Ferritin is 1300, MCV 88. Plts 470. IN R 1.6. Elevated troponins in the context of uremia CT pending. No prior scopes in EPIC. ALLERGIES: Review of patient's allergies indicates: Allergen Reactions Clarithromycin Other (Please comment) Heart racing Dextromethorphan Hives Doxylamine Hives Cdindfzwm-Hxlwnnchdd-Ya-Apap Edema face/lips/tongue and Itching Amoxicillin Food (See Comments) Hives [employer] brand 7 Grain Bread Latex Sulfa Antibiotics Other (Please comment) and Rash malaise Past Medical History: Diagnosis Date Acute kidney [...] performed by Lynnette Rasmussen DPM at OR [facility] INFORMATION wisdom teeth removed INJECTION CERVICAL/THORACIC 06/26/2014 INJECTION SPINE LUMBAR CERVICAL OR THORACIC performed by [facility] Cousins, DO at OR [facility] INJECTION CERVICAL/THORACIC 07/10/2014 INJECTION SPINE LUMBAR CERVICAL OR THORACIC performed by [facility] Shavonne Cousins, DO at OR [facility] KNEE ARTHROSCOPY/REPAIR LIGAMENT 1998 Knee Scope,Aid Ant Cruciate Repair x 2 Family History Problem Relation Name Age of Onset Diabetes Mother Diabetes Grandfather (Maternal) Diabetes Uncle (Unspecified) maternal Heart Disorder Father aneyurism Heart Disorder Grandmother (Paternal) aneyurism Social History Socioeconomic History Marital status: Tobacco Use Smoking status: Never Smokeless tobacco: Never Vaping Use Vaping status: Never Used Substance and Sexual Activity Alcohol use: No Drug use: Never Sexual activity: Not Currently Social Determinants of Health Food Insecurity: No Food Insecurity (10/03/2023) Food Insecurity Do you need food for this week? (Adult - for ages 18 years and over): No Transportation Needs: No Transportation Needs (10/03/2023) Transportation Needs Do you have trouble getting a ride to medical visits or work? (Adult - for ages 18 years and over):Never True Has lack of transportation kept you from medical appointments, meetings, work, or from getting things needed for daily living? Check all that apply. (Adult - for ages 18 years and over): No Social Connections Housing Stability: Low Risk (10/03/2023) Housing Stability Do you think you are at risk of becoming homeless? (Adult - for ages 18 years and over): No Are you homeless or worried that you might be in the future? (Adult - for ages 18 years and over): No BP 116/62 | Pulse 79 | Temp 36.5 C (97.7 F) | Resp 23 | Wt 114.3 kg (252 lb) | LMP 11/22/2002 | SpO2 100% | BMI 46.09 kg/m | BSA 2.24 m GENERAL: Obese, comfortable ABDOMEN: non tender RECTAL: Green stool in pad ASSESSMENT/PLAN: Anemia with hgb close to baseline No evidence of acute GIB - Once daily PPI. Agree with stool exam for C diff. Clears tonite and can adv diet to regular if hgb stable in am. Please trend hgb; no plans for scope at this time. Khloe Radford MD documented in this encounter Nursing Notes * Zoraida Springer, SARTHAK - 11/26/2023 9:48 AM EDT 0845 Pt A&Ox4, VS within pt's NL, denies pain at this time. Asmt, morning med pass complete. K held r/t no lab result, provider aware. Call villeda within reach. 1443 Wound care complete per podiatry note and note in [facility]. 1600 Report given to Shavonne Lopez LPN. 1608 Pt in isolation. K held this morning d/t normal lab values. Wasted potassium w/ Shavonne Dempsey RN in [place] in pt room. * Nadine Thrasher RN - 11/23/2023 11:58 PM EDT 2204 Patient sleeping when this RN walked into room, tried waking patient up to perform assessment and patient was lethargic/not keeping eyes open/not following commands. Judith Umana IT ASSISTANT made aware and at bedside to assess. Labs ordered. 2313 Patient more awake and responsive A&Ox3, not to situation. Able to take PO medication without problem. Tearful, repeating she wants to go home. * Smitha Toledo RN - 11/21/2023 7:57 PM EDT 1956 Pt reporting chest pressure stating her "heart feels like it is beating funny and will beat out of my chest". VSS. Secure TT sent to Jorge A Umana NP. EKG collected and sent to [facility]. Lab to collect trop level. This RN gave maalox and morphine per Jorge A Umana, per MAY. Trop 217, secure TT sent to [facility] regarding trop level. IV mag ordered. 2254 New IV site by [facility]. Mag running through new site. * Ifrah Juárez SN - 11/21/2023 1:50 PM EDT See the Licensed Professional's note for clinical information and recommendations. The signature ofthe Licensed Professional on this note acknowledges only the presence of the student's note within the patient record. By regulation, students' notes are for training and educational purposes only and play no part in the documentation of care or clinical treatment of patients. 0855 - assessment was completed. Patient was emotional this morning, after comfort she was okay. Chronic folly catheter was assessed and is clear with no skin breakdown. Patient repositioned often asshe is bed bound. Has skin breakdown on coccyx, dressings are clean and intact. Dressing clean and dry on right heal. * Georgia Mccray RN - 11/17/2023 1:58 AM EDT 0148 Orders obtained for blood transfusion. Pt consent signed in chart. Vitals obtained: BP: 123 mmHg/56 mmHg (11/17/23147) Pulse: 72 (11/17/23147) Temp: 35.72 C (11/17/23147) Resp: 20 (11/17/23147) SpO2: 100 % (11/17/23147) Blood Product Unit # [id number] Blood verified with Smitha Toledo RN S/S explained to pt. Pt verbalized understanding. 2:06 AM No s/s of blood transfusion rxn noted. Pt denies any s/s. Vital signs obtained: BP: 138 mmHg/77 mmHg (11/17/23202) Pulse: 74 (11/17/23202) Temp: 36.22 C (11/17/23202) Resp: 20 (11/17/23202) SpO2: 100 % (11/17/23202) Blood transfusion increased to 150 mL/hr. Will continue to monitor hourly VS. * Georgia Mccray RN - 11/16/2023 9:59 PM EDT Pt difficult to arouse and lethargic. Able to arouse briefly for orientation questions then falls back asleep. Not alert enough to take medications. Marta made aware and the need to sternal rub for arousal. No new orders at this time. * Thao Le RN - 11/16/2023 6:40 PM EDT Dual Licensed Skin Assessment completed by Aba Noland and Thao Le. The patient is/has a specialty bed at home - consider low air loss bed Skin Breakdown (includes non blanchable erythema): Yes. Wound Type: Suspected pressure injury at bony prominence, location sacral area Moisture associated skin damage/incontinent related skin damage, location sacral area Wound Ostomy Nurse Notified: Yes - notified via wound care protocol Nursing interventions: cleansed sacral ulcers and R heel ulcer and applied foam allevyns documented in this encounter ED Notes * Deng Ness, - 11/16/2023 3:38 PM EDT HISTORY OF PRESENT ILLNESS Alexandria Smith is a 63 year old female who presents to the ED for evaluation of Abnormal Test Results. The patient was seen at 11/16/23 1221. 63-year-old female with a history of diabetes, heart failure,kidney disease, pulmonary hypertension, valve disease, diabetic foot ulcer resulting osteomyelitis recent hospitalization [facility] presenting to the emergency department with increased lethargy and illness at the [facility]. She completed her antibiotics about 3days ago. She started getting lethargic. She says she feels fuzzy. She has pain in her low back upper buttock region where she has a wound. She denies any urinary symptoms or bloody/black bowel movements as far as she knows. She denies headaches or lightheadedness. She feels her mouth is dry. Denies any fevers. 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 PHYSICAL EXAM Initial Vitals (see all): BP 112/52 | Pulse 79 | Resp 16 | Temp 98.6 | O2 98 %, Room Air, None | Weight 111.86 kg | Height 157.5 cm | BMI 45.1 kg/m2 Initial Pain Assessment (see all): 0 (no pain)/10, location: generalized ([facility] Adult Scale 0-10) Physical Exam Vitals and nursing note reviewed. Constitutional: Appearance: She is well-developed. She is ill-appearing. She is not diaphoretic. HENT: Head: Normocephalic and atraumatic. Nose: Nose normal. Mouth/Throat: Mouth: Mucous membranes are dry. Pharynx: Oropharynx is clear. Eyes: Extraocular Movements: Extraocular movements intact. Cardiovascular: Rate and Rhythm: Normal rate and regular rhythm. Pulmonary: Effort: Pulmonary effort is normal. No respiratory distress. Breath sounds: Normal breath sounds. No wheezing or rales. Comments: Currently has nasal cannula oxygen which she says is chronic Abdominal: General: Bowel sounds are normal. There is no distension. Palpations: Abdomen is soft. Tenderness: There is no abdominal tenderness. There is no guarding. Genitourinary: Comments: Stool loose and brown, no black or bloody stool Musculoskeletal: General: Normal range of motion. Cervical back: Normal range of motion. Comments: Wound over the right heel appears pink with active discharge does not appear infected Skin: General: Skin is warm. Comments: There is a superior sacral wound that is open and covered with stool when we took her diaper off while she was rolled over Neurological: General: No focal deficit present. Mental Status: She is alert. Comments: Alert oriented x2, does not though in the month Psychiatric: Mood and Affect: Mood normal. PROCEDURES AND TREATMENTS ED Orders | ED Results MEDICAL DECISION MAKING Nursing notes and vital signs were reviewed. ED consults were placed. ED Course as of 11/16/232113Nov 16, 2023 131 I have ordered a blood transfusion as this patient's hemoglobin is confirmed under 7 at 6.3 here in the emergency department. I am ordering 1 unit. She is hemodynamically stable. She does not have any blood in her stool. [AT] 1330 Infectious Disease has been paged. Waiting to hear back. If I do not hear back from them soon I am going to start her on Power and vancomycin. [AT] 1341 I have not heard back from Infectious Disease. I did place in the order for vancomycin and meropenem. I was contacted by pharmacy who recommends cefepime. After further discussion they agree with meropenem while we wait for Infectious Disease to get involved. [AT] 1355 Patient's renal function has returned and is overall consistent with prior with the rest of her metabolic panel. Her urinalysis does show signs of infection including bacteria, 50+ white blood cells but no nitrites. Large amount of leukocyte esterase. Her troponin is 427 and I have ordered repeat. Her lactate is negative. C diff is negative. [AT] 1356 I did speak with Dr. Dsouza with Infectious Disease. He agrees and recommends meropenem with vancomycin for now. [AT] 1409 Dr. Dsouza messaged me about the patient's recent cultures. There is a possibility this patient may need stronger coverage the meropenem and he is going to discuss this further with the pharmacist. [AT] 1410 Chest x-ray with signs of a possible viral process/bronchitis but no pneumonia. [AT] 1410 No obvious osteomyelitis on sacral x-ray. [AT] 1410 Patient was consented earlier for blood. [AT] 1528 Patient laying on her left side slightly because of the pain of her left wound. She has received the Candida and vanco. I have been involved in a group text with pharmacy and Infectious Disease. Ultimately everyone has agreed at this point to provide the Candida as opposed to increasing to Zerbaxa but we may add an aminoglycoside. Patient is remaining hemodynamically stable. Possible osteomyelitison x-ray of the foot. [AT] 1530 I have paged the hospitalist to discuss admission. [AT] 1536 Dr. Gallagher would like to evaluate the patient at bedside before placing the admission after we had a discussion and I updated her about all my discussions with Infectious Disease and pharmacy and possible sources of infection for the patient. [AT] ED Course User Index [AT] Deng Ness, DO Differential Diagnoses Based on my history, physical exam, and evaluation, the differential includes, but is not limited, to the following diagnoses: Infected foot wound, osteomyelitis, sacral ulcer/infection, sacral osteomyelitis, dehydration, electrolyte abnormality, UTI, no suspicion at this time for intracranial hemor rhage/stroke, no shortness of breath or chest pain to suggest ACS/PE, no abdominal pain to suggest acute intra-abdominal infection. 63-year-old female presenting to the emergency department with increased lethargy and abnormal lab work. The [facility] sent her in after they found her more anemic as well as more lethargic. She completed her IV antibiotics she was on at the [facility]. She was sent home on meropenem. Septic workup was obtained and I did a sepsis alert the patient. I discussed the antibiotics with pharmacy and Infectious Disease which can be seen in the ED workup tab. The ultimate in agreement prior to admission was meropenem and vancomycin which she received as well as sepsis dose of fluids. Her lactatewas not elevated. She maintain her hemodynamics here in the emergency department. Her urine did appear to show signs of infection. On my independent review of her EKG she had a regular rhythm, difficult to see P waves on this EKG. Overall similar to prior without any acute ST segment changes. Amount and/or Complexity of Data Reviewed Labs: ordered. Radiology: ordered. ECG/medicine tests: ordered. Risk Prescription drug management. Decision regarding hospitalization. Clinical Impressions Sepsis (HCC) Anemia, unspecified type Disposition Admitted. I discussed the management of this patient with the admitting provider and I made a decision to admit the patient. Admission Order Ordered Status . 11/16/23 1602 Admit for Inpatient Services (incl ZPO) ONCE Completed Deng Ness ATTENDING ATTESTATION Critical Care Time: I personally provided 40 minutes of critical care for this patient. Critical care time was exclusive of separately billable procedures, treating other patients, and teaching. The patient had a high probability of sudden, clinically significant, life-threatening deterioration. Critical care was necessary to treat or prevent imminent or life-threatening deterioration of the following conditions: Sepsis, anemia. Initial evaluation and history gathering, ordering labs/imaging/interventions, interpreting labs/imaging, ordering appropriate interventions, documentation, multiple re-evaluations of the patient, development of treatment plan, discussion with Infectious Disease, pharmacy, Hospital Medicine, multiple re-evaluations of the patient, obtaining consent * Daniela Tripathi, SARTHAK - 11/16/2023 12:03 PM EDT Pt arrived by EMS BLS from [facility] for worsening labs, lethargy, AMS. [facility] report labsthis morning : Hgb 6.3; BUN 146 Creatinine 3.7; WBC 15.17. Pt recently on IV meropenem for R heel osteomyelitis. EMS VS: HR 80 126/84, 99% on 1 lpm. Pt alert. Pale, diaphoretic. documented in this encounter Miscellaneous Notes * Ancillary Progress Note - Iris Judge RVT - 11/28/2023 3:05 PM EDT Bilateral LE Venous Duplex- No evidence of acute DVT in the bilateral lower extremities. * Ancillary Progress Note - Thao Coronado RN - 11/28/2023 2:49 PM EDT CARE MANAGEMENT - ADULT DISCHARGE NOTE [facility] [address] Name: Alexandria Smith Location: [address] Date: 11/28/2023 Time: 2:49 PM The following coordination of care and discharge plan has been coordinated with the care team, patient, family and/or caregiver according to the patients needs and preferences. Discharge Discharge Second Notice Important Message from Medicare delivered: Yes (11/28/231448) Date Delivered: 11/27/23 (11/28/231448) Was Caregiver/Family/Facility contacted regarding discharge: Yes (11/28/231448) Discharge Transportation: BLS (11/28/231448) Date of scheduled discharge transportation: 11/28/23 (11/28/231448) Final Discharge Plan (Complete only at time of Discharge): SNF (11/28/23 144) Destination - Admitted Since 11/16/2023 Service Provider Selected Services Address Phone Fax Patient Preferred Last Updated [facility] [address] [place] [id number] [phone] -- Saqib Cam OSA 11/17/2023 0918 Narrative: Patient discharged back to [facility]. [facility] on DC. Facility aware of transport time. * Care Plan - Kajal Tse RN - 11/28/2023 5:21 AM EDT Clinical Goal(s): pt will be free from falls throughout the shift (11/27/232120) Possible barriers to meeting goal(s)/advancing plan of care: acuity of illness Stability of the patient: Moderately stable - low risk of patient condition declining or worsening Summary regarding today's goal(s): Met: pt remained free from falls this shift Recommendations: maintain fall precautions, keep call villeda within reach * Care Plan - Jorge A Radford RN - 11/27/2023 6:53 PM EDT Clinical Goal(s): Pt pain will be controlled this shift (11/27/23 0850) Possible barriers to meeting goal(s)/advancing plan of care: disease process Stability of the patient: Moderately stable - low risk of patient condition declining or worsening Summary regarding today's goal(s): Met: Pt pain controlled this shift. Poor po intake. Pt continues to be weepy at times. Using ice prn for pain to right thigh, effective. Turn and repositioned by staff. Refusing oob to chair. VSS Recommendations: * Ancillary Progress Note - Thao Coronado RN - 11/27/2023 3:32 PM EDT CARE MANAGEMENT - ADULT TRANSITION NOTE [facility]-[address] [address] Name: Alexandria Smith Location: [place] [address]/ Date: 11/27/2023 Time: 3:32 PM Risk Stratification Risk Stratification Psycho Social / Medical Concerns Identified: Adjustment to illness/injury;Multiple Comorbidities (11/17/23899) Accessed [facility] to connect patients to social care resources: No (11/17/23899) OBRA or OPTIONS needed for placement: No (11/17/23899) Readmission Risk Score: 51.86 (11/27/23 1201) AM-PAC Score With Stairs : 11 (11/27/23 0850) Caregiver Information Patient Contacts Name Relation Home Work Mobile ALEISHA DOW Other - (no specific identity) [phone] Thao Hussein Friend [phone] Transition of Care Checklist Transition of Care Checklist (aka Readmission Risk Score) Discharge Disposition: Post-Acute (11/17/23 09) Narrative: Discussed during IDT and patient for DC tomorrow back to [facility]. [facility] transport requested for 10 am tomorrow morning but they will have to get back to staff tomorrow morning. Anticipated Transportation at Discharge: [place] Patient/Family Expectations: [facility] Transition Planning Transition Planning Transition Plan/Considerations: CM provided contact information and will update plan as needs arise;Discussed at Interdisciplinary Team / Boost Rounds;Needs identified - Discharge planning services explained to patient family / caregiver - Choices offered (11/17/23899) Transition services explained and patient/family/caregiver agreeable: Correction (11/17/23899) Transition plan discussed with - Enter name and phone #: patient (11/17/23899) Insurance Considerations: Precertification needed for Post-Acute Care;Therapy documentation needed for precert request (11/17/23899) Referral to Community Agency : N/A (11/17/23899) Additional Considerations: Care Management will continue to monitor and assist with discharge planning needs * Ancillary Progress Note - Janis Paul, Ship Cleaner - 11/26/2023 4:32 PM EDT CARE MANAGEMENT - ADULT TRANSITION NOTE [facility]-[address] [address] Name: Alexandria Smith Location: [facility] 3B-3022/W Date: 11/26/2023 Time: 4:32 PM Risk Stratification Risk Stratification Psycho Social / Medical Concerns Identified: Adjustment to illness/injury;Multiple Comorbidities (11/17/23899) [facility] to [facility] care resources: No (11/17/23899) OBRA or OPTIONS needed for placement: No (11/17/23899) Readmission Risk Score: 49.2 (11/26/23 1602) AM-PAC Score With Stairs : 11 (11/26/23 0820) Caregiver Information Patient Contacts Name Relation Home Work Mobile ALEISHA DOW Other - (no specific identity) [phone] Thao Hussein Friend [phone] Transition of Care Checklist Transition of Care Checklist (aka Readmission Risk Score) Discharge Disposition: Post-Acute (11/17/23899) Narrative: Pt reviewed in IDT. Pt placed back on abx and discharge is anticipated to be 11/28/23. CMupdated Vickie from . Anticipated Transportation at Discharge: medical Patient/Family Expectations: Return to . Transition Planning Transition Planning Transition Plan/Considerations: CM provided contact information and will update plan as needs arise;Discussed at Interdisciplinary Team / Boost Rounds;Needs identified - Discharge planning services explained to patient family / caregiver - Choices offered (11/17/23899) Transition services explained and patient/family/caregiver agreeable: Correction (11/17/23899) Transition plan discussed with - Enter name and phone #: patient (11/17/23899) Insurance Considerations: Precertification needed for Post-Acute Care;Therapy documentation needed for precert request (11/17/23899) Referral to Community Agency : N/A (11/17/23899) Additional Considerations: Care Management will continue to monitor and assist with discharge planning needs * Ancillary Progress Note - Olya Mcdonald RDN - 11/26/2023 2:07 PM EDT CLINICAL NUTRITION CONSULT/PROGRESS NOTE [facility] [address] Name: Alexandria Smith Location: [facility] 3B-3021/W Date: 11/26/2023 Time: 2:07 PM How patient was identified (select 2): date and Name Discussed in interdisciplinary rounds: Yes Alexandria Smith is a 63 year old female being seen for follow-up Primary Diagnosis: Severe sepsis with acute organ dysfunction Other pertinent information: Met with patient at bedside to follow up. Patient asleep but woke to name call--however, pt fell asleep a few times during assessment. Patient reports that her appetite is not good. Per EHR, patient's intakes remain variable between 0-100%. Patient will do well with some meals and then refuse a few meals and so on and so forth. Patient continues to take liquacel BID. Will add Boost Glucose Control daily to help with intakes. Patient blood glucose levels elevated--will place pt on consistent carbohydrate diet 4 choices. Patient had no other nutritional questions orconcerns at this time. Will continue to monitor patient's intakes. NUTRITION ASSESSMENT: Past medical/surgical history and medications reviewed. Food/Nutrition-Related History Nutrition Support: None Diet: Fiber Restricted Previously followed diet: Clear liquid diet Food Allergies/Intolerances: Arnold's brand 7 grain bread Adult Energy Intake: Less than 75% of estimated energy requirement for greater than 1 month (moderate/severe, chronic illness). Percentage of meal intake: 0-100% Oral Nutrition Supplement (ONS): Liquacel (1 oz, 100 calories, 16 grams protein, 20 mg phosphorus, 10 mg potassium) BID Pertinent medications/vitamins/minerals/supplements: bumex, zyrtec, cyanocobalamin, ferrous sulfate, folic acid, novolog, lantus, liquacel, pantoprazole, potassium chloride Pertinent Biochemical Data: Latest Reference Range & Units 11/25/23 16:29 11/25/23 21:24 11/26/23 07:27 11/26/23 11:25 GLUCOSE - POCT 70 - 120 mg/dL 184 (H) 189 (H) 134 (H) 253 (H) (H): Data is abnormally high Glucose elevated--will place pt on consistent carbohydrate diet to better control BG levels Nutrition-Focused Physical Findings: Appearance: Ill-appearing Respiratory support: Supplemental O2 Delivery: Nasal Cannula Nasal/Oral: No issues identified Digestive: Appetite fair Last Bowel Movement: 11/25/23 (11/26/23 08) Cognition: Sedated/Somnolent Skin: 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, unstageable PI to sacrum, MASD to gluteal cleft, alteration in skin right posterior thigh Enteral access: None Nutrition Focused Physical Exam: NFPE completed on 11/26/23 Subcutaneous Fat Loss: Orbital fat pads: Mild Buccal fat: WNL Tricep: WNL Muscle Loss: Temples: WNL Clavicles: WNL Shoulders: WNL Interosseous: Moderate Quadriceps: WNL Calves: WNL Edema Location: Lower extremities;Both (11/26/23 08) Edema Assessment: +2 - Description (11/26/23 08) Anthropometrics Measurements Height: 157.5 cm (5' 2") (11/16/23 1720) Admission weight: 114.3 kg Weight: 109.3 kg (241 lb) (11/26/23 0600) BMI: 45.09 (11/16/23 1720) Usual Body Weight: Wt Readings from Last 5 Encounters: 11/26/23 109.3 kg (241 lb) 11/13/23 109.2 kg (240 lb 12.8 oz) 10/09/23 125.8 kg (277 lb 5.4 oz) 09/17/23 133.8 kg (294 lb 14.4 oz) 08/31/23 134.4 kg (296 lb 4.8 oz) [place] weight: 61.8 kg [place] Weight Based on BMI: 24.9 Interpretation of Weight Change Prior to Admission: Greater than 7.5% weight loss in 3 months (Severe) Greater than 10% weight loss in 6 months (Severe) Change likely secondary to fluid; 14% weight loss x 3 months; 28% weight loss x 6 months--noting ptis on diuretics at baseline and has had multiple hospitalizations this year in which she was ordered high doses of diuretics --suspect wt loss is likely a combination of fluid and poor appetite Weight Changes Since Admission: wt fluctuations--likely due to fluid-noting pt on diuretics and hashigh urine output Nutrition Prescription: Energy needs: Other: [facility] Kcal/kg Kcal/day: 2209 Based on current weight Protein needs: 1.2-1.4 gm/kg Protein: 131-153 Based on current weight Fluid needs: 1 ml/1 kcal ml/kg Fluid: 2209 ml/day Based on current weight Malnutrition: Malnutrition Present: No (11/26/23 1458) NUTRITION DIAGNOSIS: Suboptimal energy intake related to variable appetite as evidenced by patient report. Increased nutrient needs protein related to wound healing as evidenced by unstageable PI and increased metabolic demand on body. Goals: Patient to consume greater than 75 % of daily meals and 75% of daily supplements within 5 days. Previous diagnosis/Goals: Not met, pt intakes remain variable NUTRITION INTERVENTION/PLAN: Orders: Change diet to Fiber Restricted, Consistent carbohydrate 4 choices Oral nutrition supplement added Boost Glucose Control (1 cup provides 190 calories, 16 grams protein, 16 grams carbohydrate) daily Clinical Nutrition Recommendations: Diet: Continue current nutrition plan NUTRITION MONITORING AND EVALUATION: Nursing documentation flowsheets for percent meal intake Tolerance of supplement per patient/nursing report Lab values warranting change with MNT Weight for trends Plan follow-up: Will follow and adjust nutrition plan of care as medical condition requires. Please contact for change(s) in patient condition requiring earlier intervention. Olya Mcdonald MS, RDN, LDN Clinical Nutrition [facility] Available via [employer] Text [phone] * Diagnostic Clarification - Renzo Diop MD - 11/26/2023 11:10 AM EDT The patient has been diagnosed with acute renal failure. * Care Plan - Smitha Toledo RN - 11/26/2023 6:42 AM EDT Clinical Goal(s): Pt hgb will remain >7 this shift (11/25/232024) Possible barriers to meeting goal(s)/advancing plan of care: acuity of illness Stability of the patient: Moderately stable - low risk of patient condition declining or worsening Summary regarding today's goal(s): Met: Pt hgb remained above 7 this shift Recommendations: continue plan of care * Care Plan - Quyen Mccauley RN - 11/25/2023 6:45 PM EDT Clinical Goal(s): pt's hgb will remain >7 this shift (11/25/23 09) Possible barriers to meeting goal(s)/advancing plan of care: acuity of illness Stability of the patient: Moderately stable - low risk of patient condition declining or worsening Summary regarding today's goal(s): Met: hgb >7 Recommendations: continue with current plan of care * Care Plan - Smitha Toledo RN - 11/25/2023 6:40 AM EDT Clinical Goal(s): Pt hgb will remain >7 this shift (11/24/232146) Possible barriers to meeting goal(s)/advancing plan of care: acuity of illness Stability of the patient: Moderately stable - low risk of patient condition declining or worsening Summary regarding today's goal(s): Met: Pt hgb remained above 7 this shift Recommendations: continue plan of care * Care Plan - Quyen Mccauley RN - 11/24/2023 6:07 PM EDT Clinical Goal(s): pt's hgb will remain >7 this shift (11/24/23 09) Possible barriers to meeting goal(s)/advancing plan of care: acuity of illness Stability of the patient: Moderately stable - low risk of patient condition declining or worsening Summary regarding today's goal(s): Met: pt's hgb remained >7 this shift Recommendations: continue with current plan of care * Communication - Judith Umana CRNP - 11/23/2023 10:36 PM EDT Called to bedside due to patient having increased lethargy and AMS changes. Patient arouses to verbal stimuli however appears confused and staff report "not acting right" . Neuro checks WNL. Vital signs stable. Previous labs noted trending upward today 16.82 however hyponatremia noted at 128 at 1543. Will check CBC, CMP, and Lactate. Update: 2350 Labs improved from previous. Patient watching tv at this time. SANDRA Echevarria * Care Plan - Jorge A Radford RN - 11/23/2023 6:53 PM EDT Clinical Goal(s): Pt pain will be controlled this shift (11/23/23 07) Possible barriers to meeting goal(s)/advancing plan of care: disease process Stability of the patient: Moderately stable - low risk of patient condition declining or worsening Summary regarding today's goal(s): Met: Pt pain controlled this shift. Complaining of nausea and abd discomfort. Refused lunch and dinner. Vomitted x2 this shift. Tigan and compazine give for nausea. Pt states nausea has improved but wishes not to eat or drink anything at this time. Refused po medications and insulin coverage. Recommendations: * Ancillary Progress Note - Janis Paul, Ship Cleaner - 11/23/2023 4:39 PM EDT CARE MANAGEMENT - ADULT TRANSITION NOTE [facility]-[address] [address] Name: Alexandria Smith Location: [facility] 3B-3021/W Date: 11/23/2023 Time: 4:39 PM Risk Stratification Risk Stratification Psycho Social / Medical Concerns Identified: Adjustment to illness/injury;Multiple Comorbidities (11/17/23899) Accessed [employer] to connect patients to social care resources: No (11/17/23899) OBRA or OPTIONS needed for placement: No (11/17/23899) Readmission Risk Score: 50.91 (11/23/23 1601) AM-PAC Score With Stairs : 9 (11/23/23 0727) Caregiver Information Patient Contacts Name Relation Home Work Mobile ALEISHA DOW Other - (no specific identity) [phone] Thao Hussein Friend [phone] Transition of Care Checklist Transition of Care Checklist (aka Readmission Risk Score) Discharge Disposition: Post-Acute (11/17/23 09) Narrative: Pt reviewed in IDT meeting. Anticipated discharge is 11/24/23. Vickie is aware. JOE received a TT from [facility] stating that the insurance exhausted her SNF days and insurance denied. Vickie stating they are still able to accept pt d/t applying for MA. Anticipated Transportation at Discharge: BLS d/t wound- 11/24/23 at 3pm Patient/Family Expectations: Return to . Transition Planning Transition Planning Transition Plan/Considerations: CM provided contact information and will update plan as needs arise;Discussed at Interdisciplinary Team / Boost Rounds;Needs identified - Discharge planning services explained to patient family / caregiver - Choices offered (11/17/23899) Transition services explained and patient/family/caregiver agreeable: Correction (11/17/23899) Transition plan discussed with - Enter name and phone #: patient (11/17/23899) Insurance Considerations: Precertification needed for Post-Acute Care;Therapy documentation needed for precert request (11/17/23899) Referral to Community Agency : N/A (11/17/23899) Additional Considerations: Care Management will continue to monitor and assist with discharge planning needs * Care Plan - Jorge A Radford RN - 11/22/2023 6:49 PM EDT Clinical Goal(s): Pt will have no evidenece of bleeding this shift (11/22/23756) Possible barriers to meeting goal(s)/advancing plan of care: disease process Stability of the patient: Moderately stable - low risk of patient condition declining or worsening Summary regarding today's goal(s): Met: Pt H/H remained stable. No evidence of bleeding this shift. Pt medicated x1 with hydroxine foranxiety, effective. Pt received tylenol x2 this shift for complaints of coccyx pain. Pt turned fromside to side in bed. Appetite fair. Recommendations: * Ancillary Progress Note - Thao Coronado RN - 11/22/2023 11:54 AM EDT CARE MANAGEMENT - ADULT TRANSITION NOTE [facility]-[address] [address] Name: Alexandria Smith Location: [facility] 3B-3021/W Date: 11/22/2023 Time: 11:54 AM Risk Stratification Risk Stratification Psycho Social / Medical Concerns Identified: Adjustment to illness/injury;Multiple Comorbidities (11/17/23899) Accessed [facility] to connect patients to social care resources: No (11/17/23899) OBRA or OPTIONS needed for placement: No (11/17/23899) Readmission Risk Score: 49.58 (11/22/23799) AM-PAC Score With Stairs : 9 (11/22/23 0757) Caregiver Information Patient Contacts Name Relation Home Work Mobile ALEISHA DOW Other - (no specific identity) [phone] Thao Hussein Friend [phone] Transition of Care Checklist Transition of Care Checklist (aka Readmission Risk Score) Discharge Disposition: Post-Acute (11/17/23899) Narrative: Discussed during IDT. Continue to await SNF auth for DC. CM will continue to follow for DC needs. Anticipated Transportation at Discharge: [facility] Patient/Family Expectations: SNF- [facility] Transition Planning Transition Planning Transition Plan/Considerations: CM provided contact information and will update plan as needs arise;Discussed at Interdisciplinary Team / Boost Rounds;Needs identified - Discharge planning services explained to patient family / caregiver - Choices offered (11/17/23899) Transition services explained and patient/family/caregiver agreeable: Correction (11/17/23899) Transition plan discussed with - Enter name and phone #: patient (11/17/23899) Insurance Considerations: Precertification needed for Post-Acute Care;Therapy documentation needed for precert request (11/17/23899) Referral to Community Agency : N/A (11/17/23899) Additional Considerations: Care Management will continue to monitor and assist with discharge planning needs * Care Plan - Smitha Toledo RN - 11/22/2023 6:41 AM EDT Clinical Goal(s): Pt hgb will be >7 this shift (11/21/231956) Possible barriers to meeting goal(s)/advancing plan of care: acuity of illness Stability of the patient: Moderately stable - low risk of patient condition declining or worsening Summary regarding today's goal(s): Met: Pt Hgb was >7 this shift Recommendations: continue plan of care * Ancillary Progress Note - Tim El PTA - 11/21/2023 4:30 PM EDT PROGRESS NOTE - Physical Therapy [facility]-[address] [place] [address] Name: Alexandria Smith Location: [facility] 3B-3021/W Date: 11/21/2023 Time: 1630 Alexandria Smith is a/an 63 year old female. Patient Status: Inpatient Insurance: Payor: [employer] MEDICARE ADVANTAGE Plan: [employer] MEDICARE ADVANTAGE PPO Product Type: *No Product type* Payor: First Coverage [place] Plan: [employer] [facility] Product Type: HMO Patient Seen: at bedside, nursing cleared patient for therapy Patient Identified By: Name, ID Band and Date Diagnosis: sepsis, anemia (11/17/23 1017) Status of treatment: Treatment completed (11/21/23 1630) Orders: PT evaluation and treatment (11/19/23 1455) Weight Bearing Status: Weight bearing as tolerated (11/21/23 1630) Precautions: Safety;Falls;Alarms;Isolation;[place] (11/21/23 1630) Total Treatment Time--free text: 38 mins (11/21/23 1630) Subjective: "Im feeling ok" Pain: No complaints of pain P.T. Bed Mobility Roll (Left): Minimal Assistance (11/17/23 1017) Supine-Sit: Moderate Assistance (11/17/23 1017) Sit-Supine: Maximal Assistance (x2) (11/17/23 1017) Transfers Sit-Stand: Not Tested (11/17/23 1017) Stand-Sit: Not Tested (11/17/23 1017) Ambulation: Declined any OOB Balance Sit (Static): Fair (11/17/23 1017) Sit (Dynamic): Fair (11/17/23 1017) Stand (Static): Not Tested (11/17/23 1017) Stand (Dynamic): Not Tested (11/17/23 1017) Patient and or Family Goal(s): to get well and to return home Topic of Education: Safety with mobility, Use of assistive device, and Fall prevention Extremity Exercise Supine: Hip;Knee;Ankle (11/19/23 145) Hip : Bilateral LE;Flexion;Adduction;Abduction;1 set of 10 (11/19/231454) Knee : Bilateral LE;Heel slide;SAQ;1 set of 10 (11/19/231454) Ankle: Bilateral LE;Plantar flexion;Dorsiflexion;1 set of 10 (11/19/231454) Method of Education: Demonstrated the above task to pt: verbalized understanding and or agreement of this information and demonstrated the exercise and or task Treatment Provided: Therapeutic Exercises: 38 minutes Alarm Status Patient positioned in: Bed (11/21/231629) With: Bed alarm intact and functioning and call villeda in reach (11/21/231629) Patient Education Review of Precautions: Safety;Fall (11/21/231629) Review of Exercises: Pt Demonstrated Exercise;Verbal Exercises Provided (11/21/231629) Safety Awareness: Patient verbalizes insight of current deficits;Patient demonstrates carryover of insight during functional tasks;Patient can communicate basic needs (11/21/231629) Preferred learning method: Combination (11/17/23 101) Barriers to learning: Medical Status (11/17/231016) Method of Education: Verbalized to patient;Patient demonstrated task (11/17/231016) Assessment: Pt tolerated tx fair with no reported increased pain or SOB post tx session. Pt did report feeling fatigued post tx session. Pt performed supine exercises in the bed to increase strength and ROM to improve functional mobility. Pt declined to attempt any OOB or GT on this date due to weakness and fatigue. Pt was left lying supine in bed with HOB elevated to comfort. No needs post tx session. Pt instructed to not get up without assistance. Deficits requiring P.T. treatment needs: Safety;Mobility;Balance;Lower extremity strength;Range of motion (11/19/231454) Plan: Continue with current treatment plan established on evaluation. AM PAC Score with Stairs: 9 * Care Plan - Smitha Toledo RN - 11/21/2023 6:54 AM EDT Clinical Goal(s): Pt hgb will be > 7 this shift (11/20/232124) Possible barriers to meeting goal(s)/advancing plan of care: acuity of illness Stability of the patient: Moderately stable - low risk of patient condition declining or worsening Summary regarding today's goal(s): Met: Pt hgb was above 7 this shift Recommendations: continue plan of care * Ancillary Progress Note - Thao Coronado RN - 11/20/2023 12:47 PM EDT CARE MANAGEMENT - ADULT TRANSITION NOTE [facility]-[address] [address] Name: Alexandria Smith Location: [facility] 3B-3021/W Date: 11/20/2023 Time: 12:47 PM Risk Stratification Risk Stratification Psycho Social / Medical Concerns Identified: Adjustment to illness/injury;Multiple Comorbidities (11/17/23899) Accessed [facility] to connect patients to social care resources: No (11/17/23899) OBRA or OPTIONS needed for placement: No (11/17/23899) Readmission Risk Score: 43.41 (11/20/23 1201) AM-PAC Score With Stairs : 11 (11/20/23899) Caregiver Information Patient Contacts Name Relation Home Work Mobile ALEISHA DOW Other - (no specific identity) [phone] Thao Hussein Friend [phone] Transition of Care Checklist Transition of Care Checklist (aka Readmission Risk Score) Discharge Disposition: Post-Acute (11/17/23899) Narrative: Discussed during IDT. Continue to await SNF auth. Anticipated Transportation at Discharge: FAME Patient/Family Expectations: return to [facility] Transition Planning Transition Planning Transition Plan/Considerations: CM provided contact information and will update plan as needs arise;Discussed at Interdisciplinary Team / Boost Rounds;Needs identified - Discharge planning services explained to patient family / caregiver - Choices offered (11/17/23899) Transition services explained and patient/family/caregiver agreeable: Correction (11/17/23899) Transition plan discussed with - Enter name and phone #: patient (11/17/23899) Insurance Considerations: Precertification needed for Post-Acute Care;Therapy documentation needed for precert request (11/17/23899) Referral to Community Agency : N/A (11/17/23899) Additional Considerations: Care Management will continue to monitor and assist with discharge planning needs * Ancillary Progress Note - Olya Mcdonald RDN - 11/20/2023 9:10 AM EDT CLINICAL NUTRITION CONSULT/PROGRESS NOTE [address] [address] Name: Alexandria Smith Location: [facility] 3B-3021/W Date: 11/20/2023 Time: 9:17 AM How patient was identified (select 2): date and Name Discussed in interdisciplinary rounds: Yes Alexandria Smith is a 63 year old female being seen for follow-up Primary Diagnosis: Severe sepsis with acute organ dysfunction Other pertinent information: Met with patient at bedside to follow up. Patient reports that her appetite has been off/on ever since being in and out of the hospital this year. She states that she will have a good appetite sometimes and then other times does not want to eat--she states her appetite is on/off every other day. Patient reports eating okay during admission. Per EHR, patient's intakes are variable, some days her intakes are greater than 75% and others 15- 50%. [facility]. Patient reports that her usual body weight was close to 350 lbs -- per EHR, patient has had significant weight changes of 14% weight loss x 3 months; 28% weight loss x 6 months. However, changes may be attributed to fluids noting that patient is on diuretics on baseline and has had many admissions in which excess fluids have been removed. Unsure if wt loss is entirely attributed to fluids or if varied appetite plays a component. Performed a nutrition focused physical exam today, patient presents with mild fat loss and moderate fat loss in interosseus muscle--only1 area in each category. Patient does not currently meet criteria for malnutrition. Patient had no other nutritional questions or concerns at this time. Will continue to monitor pt for intakes, weight, and labs. NUTRITION ASSESSMENT: Past medical/surgical history and medications reviewed. Food/Nutrition-Related History Nutrition Support: None Diet: Renal Non-Dialysis Adult Previously followed diet: Regular per pt Food Allergies/Intolerances: Arnold's brand 7 grain bread Adult Energy Intake: Less than 75% of estimated energy requirement for greater than 1 month (moderate/severe, chronic illness). Percentage of meal intake: 0-100% Oral Nutrition Supplement (ONS): Liquacel (1 oz, 100 calories, 16 grams protein, 20 mg phosphorus, 10 mg potassium) BID Pertinent medications/vitamins/minerals/supplements: bumex, cyanocobalamin, ferrous sulfate, folic acid, novolog, lantus, liquacel, pantoprazole Pertinent Biochemical Data: Latest Reference Range & Units 11/17/23 05:59 11/20/23 08:13 Phosphorus 2.5 - 4.8 mg/dL 6.9 (H) 6.4 (H) (H): Data is abnormally high Phosphorus elevated--will monitor--if remains elevated would suggest phosphorus binder Nutrition-Focused Physical Findings: Appearance: Ill-appearing Respiratory support: Supplemental O2 Delivery: Nasal Cannula Nasal/Oral: No issues identified Digestive: Appetite fair Last Bowel Movement: 11/18/23 (11/18/23 09) Cognition: Awake, alert and Oriented Skin: 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, unstageable PI to sacrum, MASD to gluteal cleft, alteration in skin right posterior thigh Enteral access: None Nutrition Focused Physical Exam: NFPE completed on 11/20/23 Subcutaneous Fat Loss: Orbital fat pads: Mild Buccal fat: WNL Tricep: WNL Muscle Loss: Temples: WNL Clavicles: WNL Shoulders: WNL Interosseous: Moderate Quadriceps: WNL Calves: WNL Edema Location: Lower extremities;Both (11/20/23 1000) Edema Assessment: +2 - Description (11/20/23 1000) Anthropometrics Measurements Height: 157.5 cm (5' 2") (11/16/23 1720) Admission weight: 114.3 kg Weight: 112.9 kg (248 lb 12.8 oz) (11/20/23 0600) BMI: 45.09 (11/16/23 1720) Usual Body Weight: 125-130 kg per EHR Wt Readings from Last 5 Encounters: 11/17/23 114.4 kg (252 lb 4.8 oz) 11/13/23 109.2 kg (240 lb 12.8 oz) 10/09/23 125.8 kg (277 lb 5.4 oz) 09/17/23 133.8 kg (294 lb 14.4 oz) 08/31/23 134.4 kg (296 lb 4.8 oz) [place] weight: 61.8 kg [place] Weight Based on BMI: 24.9 Interpretation of Weight Change Prior to Admission: Greater than 7.5% weight loss in 3 months (Severe) Greater than 10% weight loss in 6 months (Severe) Change likely secondary to fluid; 14% weight loss x 3 months; 28% weight loss x 6 months--noting ptis on diuretics at baseline and has had multiple hospitalizations this year in which she was ordered high doses of diuretics --suspect wt loss is likely a combination of fluid and poor appetite Weight Changes Since Admission: -2.5 kg likely due to fluid noting pt is having high urine outputs Nutrition Prescription: Energy needs: Other: [facility] Kcal/kg Kcal/day: 2252 Based on current weight Protein needs: 1.2-1.4 gm/kg Protein: 135-158 Based on current weight Fluid needs: 1 ml/1 kcal ml/kg Fluid: 2252 ml/day Based on current weight Malnutrition: Malnutrition Present: No (11/20/23 1403) NUTRITION DIAGNOSIS: Suboptimal energy intake related to variable appetite as evidenced by patient report Increased nutrient needs protein related to wound healing as evidenced by unstageable PI and increased metabolic demand on body Goals: Patient to consume greater than 75 % of daily meals and 75% of daily supplements within 5 days. NUTRITION INTERVENTION/PLAN: Orders: Oral nutrition supplement continued Liquacel (1 oz, 100 calories, 16 grams protein, 20 mg phosphorus, 10 mg potassium) BID Continue current care plan Clinical Nutrition Recommendations: Diet: Continue current nutrition plan NUTRITION MONITORING AND EVALUATION: Nursing documentation flowsheets for percent meal intake Tolerance of supplement per patient/nursing report Lab values warranting change with MNT Weight for trends Plan follow-up: Will follow and adjust nutrition plan of care as medical condition requires. Please contact for change(s) in patient condition requiring earlier intervention. Olya Mcdonald MS, RDN Clinical Nutrition [facility] Available via Rufe Text [phone] * Care Plan - Dread Daniel RN - 11/19/2023 6:29 PM EDT Clinical Goal(s): Patient will be free of falls for this shift. (11/19/23 09) Possible barriers to meeting goal(s)/advancing plan of care: Diagnosis Stability of the patient: Moderately stable - low risk of patient condition declining or worsening Summary regarding today's goal(s): Met: Patient was free of falls for this shift. Recommendations: Hourly rounds, frequent repositioning. * Ancillary Progress Note - Melisa Rivero PTA - 11/19/2023 2:55 PM EDT PROGRESS NOTE - Physical Therapy [facility]-[address] [address] Name: Alexandria Smith Location: [facility] [id number]/ Date: 11/19/2023 Time: 1454 Alexandria Smith is a/an 63 year old female. Patient Status: Inpatient Insurance: Payor: [employer] MEDICARE ADVANTAGE Plan: AET MEDICARE ADVANTAGE PPO Product Type: *No Product type* Payor: First Coverage [place] [facility]: [facility] Product Type: HMO Patient Seen: at bedside, nursing cleared patient for therapy Patient Identified By: Name, ID Band and Date Diagnosis: sepsis, anemia (11/17/23 1017) Status of treatment: Treatment completed (11/19/23 145) Orders: PT evaluation and treatment (11/19/231454) Weight Bearing Status: Weight bearing as tolerated (11/19/231454) Precautions: Alarms;Falls;Pruett;Oxygen (11/19/23 145) Total Treatment Time--free text: 17 (11/19/231454) Subjective: Pt tearful re current situation and health issues Pain: Patient has complaints of pain. Pain located BLE skin . Unable to rate pain P.T. Bed Mobility Roll (Left): Minimal Assistance (11/17/231016) Supine-Sit: Moderate Assistance (11/17/231016) Sit-Supine: Maximal Assistance (x2) (11/17/231016) Transfers Sit-Stand: Not Tested (11/17/231016) Stand-Sit: Not Tested (11/17/231016) Ambulation: Distance ambulated (feet): 0 Balance Sit (Static): Fair (11/17/231016) Sit (Dynamic): Fair (11/17/231016) Stand (Static): Not Tested (11/17/231016) Stand (Dynamic): Not Tested (11/17/231016) Patient and or Family Goal(s): to return home Topic of Education: BLE ROM / Strengthening Extremity Exercise Supine: Hip;Knee;Ankle (11/19/231454) Hip : Bilateral LE;Flexion;Adduction;Abduction;1 set of 10 (11/19/231454) Knee : Bilateral LE;Heel slide;SAQ;1 set of 10 (11/19/231454) Ankle: Bilateral LE;Plantar flexion;Dorsiflexion;1 set of 10 (11/19/231454) Method of Education: Demonstrated the above task to pt: demonstrated the exercise and or task Treatment Provided: Therapeutic Exercises: 17 minutes Alarm Status Patient positioned in: Bed (11/19/231454) With: Bed alarm intact and functioning and call villeda in reach (11/19/231454) Patient Education Review of Precautions: Safety;Fall (use of call villeda for assistance, pt verbalizes understanding) (11/17/231016) Safety Awareness: Patient verbalizes insight of current deficits;Patient demonstrates carryover of insight during functional tasks;Patient can communicate basic needs (11/17/231016) Preferred learning method: Combination (11/17/231016) Barriers to learning: Medical Status (11/17/231016) Method of Education: Verbalized to patient;Patient demonstrated task (11/17/231016) Assessment: Pt in bed. Agreeable to moving LE's but not sitting up... Pt completed BLE A-AAROM exc's for joint mobility and mm strength. Declined further rx this afternoon. Left in bed with call light in reach Deficits requiring P.T. treatment needs: Safety;Mobility;Balance;Lower extremity strength;Range of motion (11/19/23 1455) Plan: Continue with current treatment plan established on evaluation. AM PAC Score with Stairs: 11 * Ancillary Progress Note - Janis Paul Ship Cleaner - 11/19/2023 1:30 PM EDT Post acute authorization request submitted to . * Care Plan - Chuckie Villarreal RN - 11/19/2023 5:41 AM EDT Clinical Goal(s): pt hgb will be >7 this shift (11/18/23 0815) Possible barriers to meeting goal(s)/advancing plan of care: Acuity of illness Stability of the patient: Moderately stable - low risk of patient condition declining or worsening Summary regarding today's goal(s): Met: Pt hgb remained above 7 throughout the shift. Recommendations: Continue with plan of care. * Care Plan - Lina Posey RN - 11/18/2023 6:22 AM EDT Clinical Goal(s): pt will remain free from falls this shift (11/17/232023) Possible barriers to meeting goal(s)/advancing plan of care: Hospital environment, pain, limited mobility Stability of the patient: Moderately stable - low risk of patient condition declining or worsening Summary regarding today's goal(s): Met: Pt did not experience a fall this shift Recommendations: Maintain current plan of care with attention to fall precautions qshift * Ancillary Progress Note - Olya Mcdonald RDN - 11/17/2023 2:35 PM EDT CLINICAL NUTRITION ADULT RISK ASS[facility]MENT [facility] [place] [facility] [address] [place] [address] Name: Alexandria Smith Location: [facility] 3B-3021/W Date: 11/17/2023 Time: 2:35 PM How patient was identified (select 2): Medical record number and Name Alexandria Smith is a 63 year old female being assessed for clinical nutrition risk related to skin breakdown Primary diagnosis: Sepsis Other pertinent information: Attempted to meet with patient, however pt was sleeping and would not wake to name call. [facility] Per EHR, pt ate 75% of her breakfast this morning. Per chart review, pt takes liquacel BID--will order. Patient has a diabetic ulcer on her right heel.Patient has a hx of heart failure and weight is variable. Per EHR, patient has had 13% weight loss over the past 3 months. Patient has also had weight gain over this past month --likely due to fluid.Will continue to monitor intakes and weight and follow up to obtain information. Anthropometrics Measurements Admission weight (for dietitians): 114.3 kg Height: 157.5 cm (5' 2") (11/16/23 1720) Weight: 114.4 kg (252 lb 4.8 oz) (11/17/23 0308) BMI: 45.09 (11/16/23 1720) Usual Body Weight or EDW for Dialysis Patients: 125-130 kg per EHR Wt Readings from Last 5 Encounters: 11/17/23 114.4 kg (252 lb 4.8 oz) 11/13/23 109.2 kg (240 lb 12.8 oz) 10/09/23 125.8 kg (277 lb 5.4 oz) 09/17/23 133.8 kg (294 lb 14.4 oz) 08/31/23 134.4 kg (296 lb 4.8 oz) Diet: Clear Liquid Previously followed diet: Unable to obtain Food Allergies/Intolerances: Arnold's brand 7 Grain Bread Oral Nutrition Supplement (ONS): None Pertinent medications/vitamins/minerals/supplements: bumex, zyrtec, cyanocobalamin, ferrous sulfate, folic acid, novolog, lantus RISK FACTORS: Adult Energy Intake: Unable to obtain at present time Interpretation of Weight Change: Greater than 7.5% weight loss in 3 months (Severe) Noting pt taking oral diuretics --unsure if wt loss is related to diuretics/appetite/ or if it was intentional; patient has also had weight gain since 11/12 --likely fluid related (see above for recorded weights) Skin: 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, suspected PI to sacrum NUTRITION RISK CATEGORY: Nutrition Risk Category: Unable to be determined Clinical Nutrition Recommendations: Diet: Advance diet when clinically feasible NUTRITION INTERVENTION/PLAN: Orders: Oral nutrition supplement added Liquacel (1 oz, 100 calories, 16 grams protein, 20 mg phosphorus, 10 mg potassium) BID Will follow and adjust nutritional plan as medical condition requires. Please contact for change(s)in patient condition requiring earlier intervention. Olya Mcdonald MS, RDN Clinical Nutrition [facility] Available via Rufe Text [phone] * Ancillary Progress Note - Charo Posey RN - 11/17/2023 9:04 AM EDT CARE MANAGEMENT - ADULT INITIAL SCREENING [address] [address] Name: Alexandria Smith Location: [facility] 3B-3021/W Date: 11/17/2023 Time: 9:10 AM Discussed patient with the interdisciplinary care team. This Scale Installer performed a chart review and met with patient at bedside to complete admission screen and assessed needs for transition planning. The care taker role and services were explained and emotional support was provided. Chief Complaint: Abnormal Test Results Prior Living Arrangements What was your living situation prior to admission/observation?: At a Skilled Nursing ([facility]) (11/17/23899) Living Quarters: Correction Facility ([facility]) (11/17/23899) Number of steps to enter living quarters:: 0 (11/17/23899) Do you have serious difficulty walking or climbing stairs? (5 years old or older): Yes (11/16/231732) History of falling: No (11/17/23742) Prior Level of Functioning Describe the patient's ability prior to admission/observation to perform ADLs: Requires assistance (11/17/23899) Requires assistance with: Dressing;Bathing;Toileting (11/17/23899) Describe the patient's mobility status prior to admission: Patient ambulates independently;Patient is able to sit on bedside;Patient can sit up in bed (11/17/23899) Patient uses assistive device: Yes (11/17/23899) If yes, choose:: Walker;Wheelchair (11/17/23899) Caregiver Information Patient Contacts Name Relation Home Work Mobile ALEISHA DOW Other - (no specific identity) [phone] Thao Hussein Friend [phone] Risk Stratification/Psychosocial/Care Gaps Risk Stratification Psycho Social / Medical Concerns Identified: Adjustment to illness/injury;Multiple Comorbidities (11/17/23899) Accessed [facility] to connect patients to social care resources: No (11/17/23899) OBRA or OPTIONS needed for placement: No (11/17/23899) Readmission Risk Score: 48.42 (11/17/23799) AM-PAC Score With Stairs : 13 (11/17/23742) Prior to Admission Services Services Prior to Admission MANAGER CRISIS Services (Services received within the last 30 days with exception, Psych within last two years): Correction;Durable Medical Equipment (11/17/23899) Correction Facility Bed Hold Confirmed: Yes (11/17/23899) MANAGER CRISIS Durable Medical Equipment (DME) in home: Wheelchair standard;Walker Rolling;Shower chair/bench;Hospital bed;Grab bars/Rails (11/17/23899) [place] Dept[employer] of [employer]ging (PDA) Waiver Program: N/A (11/17/23899) MANAGER CRISIS Transportation (Services received within the last 30 days): Medical Transportation;Facility Transportation (11/17/23899) Outpatient Scale Installer: No care merchandise flow team leader to display Patient/Family Expectations: return to [facility] and evetually return to home in [place]. Patient is from [facility]. She has been a resident since September 2023 for rehab. As per patient, she is a 2 person assist with transfers. She is able to pivot to wheelchair. She is requiring assistance with ADLS - showering, bathing, and toileting. Goal is for patient to return to [facility] at discharge. She will need an updated authorization from [facility] prior to discharge. [facility] avina will likely transport. [facility] 13 For further screening information, please refer to the Care Management flow document. * Care Plan - Georgia Mccray RN - 11/17/2023 5:02 AM EDT Clinical Goal(s): Pt hemoglobin will be greater than 7 this shift (11/16/231930) Possible barriers to meeting goal(s)/advancing plan of care: acuity of illness Stability of the patient: Moderately stable - low risk of patient condition declining or worsening Summary regarding today's goal(s): Not Met: Pts Hemoglobin dropped to 6.8, 1 unit packed red blood cells Recommendations: Continue with plan of care * Ancillary Progress Note - Tessie Lehman, Ship Cleaner - 11/16/2023 4:04 PMEDT Per Vesta at patient is an MA bed hold. EDT * ED Hospice Physician Note - Brittaney Zhao RN - 11/16/2023 2:58 PM EDT 1235: patient disoriented to place and situation at first but when asked again, was able to correctherself. Stated she " knew what wanted to say but it did not come out right" and was able to give correct location. 1245: IV's placed, blood collected, matthew-care completed, urinary catheter placed. Multiple sacral wounds noted. Patient states painful to touch. Incontinent of diarrhea without obvious blood. 1300: fluid bolus started. 1405: Meropenem started. 1430: Lungs clear to auscultation. VS obtained & stable. Blood started. 1442: Vancomycin started. 1445: Patient tolerating blood transfusion well. VSS. Lungs clear to auscultation. Call villeda withinreach. 1451: Blood rate change increased at this time. 1455: Patient tolerating blood and antibiotics well. Call villeda within reach. * ED Hospice Physician Note - Samina Salgado RN - 11/16/2023 2:22 PM EDT Wedges placed under pts R side * ED Hospice Physician Note - Samina Salgado RN - 11/16/2023 1:00 PM EDT 900mL emptied from pruett bag * ED Hospice Physician Note - Ifrah Foley RN - 11/16/2023 11:59 AM EDT SARTHAK Suarez from [facility] called in to give report on pt. 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 Says that pt has been more lethargic and pale. Reportsthat pt's most recent Hgb was 6.3 and WBC 15. documented in this encounter Plan of Treatment Upcoming Encounters Date Type Department Care Team (Late st Contact Info) Description 12/25/2023 10:00 AM EDT Office Visit Nephrology[facility]aterin [address] [place], [place] [address] Joslyn Barney MD [address] [place], [place] [address] Scheduled Orders Name Type Priority Associated Diagnoses Orde r Schedule VASC DUPLEX VENOUS LE BILAT Medical Imaging Routine One Time for 1 Occurrences starting 11/26/2023 until 11/26/2023 Health Maintenance Due Date Last Done Comments Depression Screening 1972 HIV Screening 1975 Diabetic Foot Exam 1978 HPV/Co-Test 1990 Mammogram 2000 Diabetic Eye Exam 07/09/2001 07/09/2000 Cologuard 2005 Colonoscopy 2005 Colorectal Cancer Screening 2005 Fecal Occult Blood Test 2005 Sigmoidoscopy 2005 DTap/Tdap Vaccines (2 - Tdap) 11/03/2008 11/03/1998 Cervical Cancer Screening 11/11/2013 Pap Smear 11/11/2013 11/11/2010, 04/2010, 12/10/2002, Additional history exists Albumin/Creatinine Ratio 11/20/2019 019, 2001, 07/09/2000, Additional history exists Zoster Vaccines (2 of 2) 06/15/2023 04/20/2023 COVID-19 Vaccine ( - season) 2023 08/24/2020 HbA1c 04/05/2024 10/04/2023, 05/11, 11/19/2018, Additional history exists GFR 05/27/2024 11/28/2023, 11/10, 11/27/2023, Additional history exists TSH 06/26/2024 06/27/2023, 0 07/2023, 06/02/2023, Additional history exists Nephrology Referral 09/16/2024 09/17/2023 PTH 09/30/2024 10/01/2023 Phosphate 11/20/2024 11/21/2023, 11/10, 11/17/2023, Additional history exists Hgb 11/27/2024 11/28/2023, 11/10, 11/26/2023, Additional history exists Influenza Vaccine (FLU shot) Completed , 12/18/2017, 10/24/2016, Additional history exists Pneumococcal Vaccine: Pediatrics (0 to 5 Years) and At-Risk Patients (6 to 64 Years) Completed 11/28/2023, 01/27/2016, 07/10/2011, Additional history exists HPV (Gardasil) Vaccine Aged Out No lo nger eligible based on patient's age to complete this topic Hepatitis B Vaccine Aged Out No longe r eligible based on patient's age to complete this topic MENINGOCOCCAL (MENACTRA/MENVEO) Aged Out No longer eligible based on patient's age to complete this topic documented as of this encounter Medical Devices Not on filedocumented as of this encounter Procedures Procedure Name Priority Date/Time Associated Diagnosis Comments VASC DUPLEX VENOUS LE BILAT Routine 11/28/2023 3:05 PM EDT Edema, unspecified type BASIC METABOLIC PANEL Routine 11/28/2023 12:21 PM EDT GLUCOSE METER, POINT OF CARE SUAD 11/28/2023 11:20 AM EDT GLUCOSE METER, POINT OF CARE SUAD 11/28/2023 8:00 AM EDT PROCALCITONIN Routine 11/28/2023 6:44 AM EDT CRP (INFLAMMATORY MARKER) Routine 11/28/2023 6:44 AM EDT BASIC METABOLIC PANEL Routine 11/28/2023 6:44 AM EDT CBC Routine 11/28/2023 6:44 AM EDT GLUCOSE METER, POINT OF CARE SUAD 11/27/2023 9:35 PM EDT GLUCOSE METER, POINT OF CARE SUAD 11/27/2023 4:52 PM EDT GLUCOSE METER, POINT OF CARE SUAD 11/27/2023 11:25 AM EDT BASIC METABOLIC PANEL Routine 11/27/2023 8:49 AM EDT CBC Routine 11/27/2023 8:49 AM EDT GLUCOSE METER, POINT OF CARE SUAD 11/27/2023 7:35 AM EDT GLUCOSE METER, POINT OF CARE SUAD 11/26/2023 9:38 PM EDT GLUCOSE METER, POINT OF CARE SUAD 11/26/2023 4:28 PM EDT GLUCOSE METER, POINT OF CARE SUAD 11/26/2023 11:25 AM EDT BASIC METABOLIC PANEL STAT 11/26/2023 10:03 AM EDT GLUCOSE METER, POINT OF CARE SUAD 11/26/2023 7:27 AM EDT BASIC METABOLIC PANEL Routine 11/26/2023 7:07 AM EDT CBC Routine 11/26/2023 7:07 AM EDT GLUCOSE METER, POINT OF CARE SUAD 11/25/2023 9:24 PM EDT GLUCOSE METER, POINT OF CARE SUAD 11/25/2023 4:29 PM EDT US EXTREMITY, NON-VASCULAR LIMITED Routine 11/25/2023 12:18 PM EDT GLUCOSE METER, POINT OF CARE [facility] 11/25/2023 11:21 AM EDT GLUCOSE METER, POINT OF CARE SUAD 11/25/2023 8:08 AM EDT PROCALCITONIN Add-on 11/25/2023 7:00 AM EDT CRP (INFLAMMATORY MARKER) Add-on 11/25/2023 7:00 AM EDT BASIC METABOLIC PANEL Routine 11/25/2023 7:00 AM EDT CK Add-on 11/25/2023 7:00 AM EDT CBC Routine 11/25/2023 7:00 AM EDT GLUCOSE METER, POINT OF CARE SUAD 11/24/2023 9:20 PM EDT GLUCOSE METER, POINT OF CARE SUAD 11/24/2023 4:32 PM EDT GLUCOSE METER, POINT OF CARE SUAD 11/24/2023 11:48 AM EDT GLUCOSE METER, POINT OF CARE SUAD 11/24/2023 7:34 AM EDT DIFFERENTIAL, AUTOMATED Routine 11/24/19 6:17 AM EDT PROCALCITONIN Add-on 11/24/2023 6:17 AM EDT CRP (INFLAMMATORY MARKER) Routine 11/24/2023 6:17 AM EDT BASIC METABOLIC PANEL Routine 11/24/2023 6:17 AM EDT CBC Routine 11/24/2023 6:17 AM EDT CBC Routine 11/24/2023 6:17 AM EDT COMPREHENSIVE METABOLIC PANEL STAT 11/23/2023 10:31 PM EDT LACTATE STAT 11/23/2023 10:31 PM EDT CBC STAT 11/23/2023 10:31 PM EDT MAGNESIUM Add-on 11/23/2023 10:31 PM EDT GLUCOSE METER, POINT OF CARE SUAD 11/23/2023 9:06 PM EDT GLUCOSE METER, POINT OF CARE SUAD 11/23/2023 4:[address] ABD/PELVIS WO IV/ORAL CONTRAST STAT 11/23/2023 4:19 PM EDT BASIC METABOLIC PANEL STAT 11/23/2023 3:06 PM EDT LIPASE STAT 11/23/2023 3:06 PM EDT LACTATE STAT 11/23/2023 3:05 PM EDT CBC STAT 11/23/2023 3:05 PM EDT GLUCOSE METER, POINT OF CARE SUAD 11/23/2023 11:26 AM EDT GLUCOSE METER, POINT OF CARE SUAD 11/23/2023 7:52 AM EDT DIFFERENTIAL, AUTOMATED Routine 11/23/19 24 7:34 AM EDT PROCALCITONIN Add-on 11/23/2023 7:34 AM EDT CRP (INFLAMMATORY MARKER) Routine 11/23/2023 7:34 AM EDT BASIC METABOLIC PANEL Routine 11/23/2023 7:34 AM EDT CBC Routine 11/23/2023 7:34 AM EDT CBC Routine 11/23/2023 7:34 AM EDT GLUCOSE METER, POINT OF CARE SUAD 11/22/2023 9:02 PM EDT GLUCOSE METER, POINT OF CARE SUAD 11/22/2023 4:25 PM EDT GLUCOSE METER, POINT OF CARE SUAD 11/22/2023 12:02 PM EDT GLUCOSE METER, POINT OF CARE SUAD 11/22/2023 7:40 AM EDT DIFFERENTIAL, AUTOMATED Routine 11/22/19 24 6:36 AM EDT CRP (INFLAMMATORY MARKER) Routine 11/22/2023 6:36 AM EDT BASIC METABOLIC PANEL Routine 11/22/2023 6:36 AM EDT CBC Routine 11/22/2023 6:36 AM EDT CBC Routine 11/22/2023 6:36 AM EDT GLUCOSE METER, POINT OF CARE SUAD 11/21/2023 9:42 PM EDT HC ECG TRACING ONLY STAT 11/21/2023 8 :08 PM EDT Screening for cardiovascular condition TROPONIN T, HIGH SENSITIVITY STAT 11/21/2023 8:03 PM EDT PHOSPHORUS Add-on 11/21/2023 8:03 PM EDT MAGNESIUM Add-on 11/21/2023 8:03 PM EDT GLUCOSE METER, POINT OF CARE SUAD 11/21/2023 4:12 PM EDT VASC DUPLEX VENOUS LE BILAT STAT 11/21/2023 1:08 PM EDT GLUCOSE METER, POINT OF CARE SUAD 11/21/2023 11:20 AM EDT GLUCOSE METER, POINT OF CARE SUAD 11/21/2023 7:52 AM EDT PROCALCITONIN Add-on 11/21/2023 6:59 AM EDT CRP (INFLAMMATORY MARKER) Routine 11/21/2023 6:59 AM EDT BASIC METABOLIC PANEL Routine 11/21/2023 6:59 AM EDT CBC Routine 11/21/2023 6:59 AM EDT GLUCOSE METER, POINT OF CARE SUAD 11/20/2023 9:24 PM EDT GLUCOSE METER, POINT OF CARE SUAD 11/20/2023 4:48 PM EDT GLUCOSE METER, POINT OF CARE SUAD 11/20/2023 11:26 AM EDT CRP (INFLAMMATORY MARKER) Add-on 11/20/2023 8:13 AM EDT BASIC METABOLIC PANEL Routine 11/20/2023 8:13 AM EDT PHOSPHORUS Routine 11/20/2023 8:13 AM EDT CBC Routine 11/20/2023 8:13 AM EDT MAGNESIUM Routine 11/20/2023 8:13 AM EDT GLUCOSE METER, POINT OF CARE [facility] 11/20/2023 7:26 AM EDT GLUCOSE METER, POINT OF CARE SUAD 11/19/2023 9:09 PM EDT GLUCOSE METER, POINT OF CARE [facility] 11/19/2023 4:45 PM EDT GLUCOSE METER, POINT OF CARE SUAD 11/19/2023 11:30 AM EDT ECHO, COMPLETE (2D), TRANS-THORACIC Routine 11/19/2023 11:14 AM EDT Sepsis (HCC) GLUCOSE METER, POINT OF CARE SUAD 11/19/2023 7:26 AM EDT DIFFERENTIAL, AUTOMATED Routine 11/19/19 6:57 AM EDT BASIC METABOLIC PANEL Routine 11/19/2023 6:57 AM EDT CBC Routine 11/19/2023 6:57 AM EDT CBC Routine 11/19/2023 6:57 AM EDT HGB Routine 11/19/2023 12:14 AM EDT GLUCOSE METER, POINT OF CARE SUAD 11/18/2023 8:40 PM EDT EXTRA LAVENDER TOP Routine 11/18/2023 5: 05 PM EDT EXTRA TUBES Routine 11/18/2023 5:05 PM EDT TROPONIN T, HIGH SENSITIVITY STAT 11/18/2023 5:05 PM EDT GLUCOSE METER, POINT OF CARE SUAD 11/18/2023 4:42 PM EDT HGB Routine 11/18/2023 3:27 PM EDT TROPONIN T, HIGH SENSITIVITY STAT 11/18/2023 1:15 PM EDT HC ECG TRACING ONLY STAT 11/18/2023 1 2:30 PM EDT Screening for cardiovascular condition GLUCOSE METER, POINT OF CARE SUAD 11/18/2023 11:21 AM EDT DIFFERENTIAL, AUTOMATED Routine 11/18/19 7:57 AM EDT VANCOMYCIN RANDOM Timed 11/18/2023 7:5 7 AM EDT CRP (INFLAMMATORY MARKER) Add-on 11/18/2023 7:57 AM EDT COMPREHENSIVE METABOLIC PANEL Routine 11/18/2023 7:57 AM EDT CBC Routine 11/18/2023 7:57 AM EDT CBC Routine 11/18/2023 7:57 AM EDT GLUCOSE METER, POINT OF CARE SUAD 11/18/2023 7:30 AM EDT GLUCOSE METER, POINT OF CARE SUAD 11/17/2023 9:42 PM EDT GASTROINTESTINAL PATHOGEN PANEL, STOOL Routine 11/17/2023 7:55 PM EDT GASTROINTESTINAL PATHOGEN PANEL CULTURE Routine 11/17/2023 7:55 PM EDT GASTROINTESTINAL PATHOGEN PANEL PCR Routine 11/17/2023 7:55 PM EDT GLUCOSE METER, POINT OF CARE SUAD 11/17/2023 4:41 PM EDT HGB Routine 11/17/2023 11:55 AM EDT GLUCOSE METER, POINT OF CARE SUAD 11/17/2023 11:19 AM EDT GLUCOSE METER, POINT OF CARE SUAD 11/17/2023 7:29 AM EDT DIFFERENTIAL, AUTOMATED Routine 11/17/19 5:59 AM EDT TROPONIN T, HIGH SENSITIVITY STAT 11/17/2023 5:59 AM EDT COMPREHENSIVE METABOLIC PANEL Routine 11/17/2023 5:59 AM EDT CBC Routine 11/17/2023 5:59 AM EDT PHOSPHORUS Routine 11/17/2023 5:59 AM EDT CBC Routine 11/17/2023 5:59 AM EDT MAGNESIUM Routine 11/17/2023 5:59 AM EDT TRANSFUSE PACKED RED BLOOD CELLS Routine 11/17/2023 1:48 AM EDT HC COMPATIBILITY ELECTRONIC CROSSMATCH Routine 11/17/2023 1:05 AM EDT EXTRA GREEN TOP NO GEL Routine 12:14 AM EDT EXTRA GREEN TOP WITH GEL Routine 11/17/2023 12:14 AM EDT EXTRA TUBES Routine 11/17/2023 12:14 AM EDT TROPONIN T, HIGH SENSITIVITY STAT 11/17/2023 12:14 AM EDT HGB Routine 11/17/2023 12:14 AM EDT GLUCOSE METER, POINT OF CARE SUAD 11/16/2023 9:25 PM EDT HGB Routine 11/16/2023 6:35 PM EDT GLUCOSE METER, POINT OF CARE SUAD 11/16/2023 6:14 PM EDT EXTRA URINE Routine 11/16/2023 5:22 PM EDT EXTRA TUBES Routine 11/16/2023 5:22 PM EDT MRSA SCREEN, PCR Routine 11/16/2023 5:22 PM EDT CULTURE, URINE, QUANTITATIVE Routine 11/16/2023 5:[address] LOWER EXTREMITY LEFT WO CONTRAST STAT 11/16/2023 5:07 PM EDT Emphysema, unspecified (HCC) Pain in right hip Abnormal findings on diagnostic imaging of limbs CT LOWER EXTREMITY RIGHT WO CONTRAST STAT 11/16/2023 5:07 PM EDT Emphysema, unspecified (HCC) Pain in right hip Abnormal findings on diagnostic imaging of limbs CT ABD/PELVIS WO IV/ORAL CONTRAST STAT 11/16/2023 5:07 PM EDT Sclerosing mesenteritis (HCC) Pleural effusion, not elsewhere classified Gastrointestinal hemorrhage, unspecified Localized enlarged lymph nodes Abnormal findings on diagnostic imaging of other specified body structures Unspecified abdominal pain AMMONIA STAT 11/16/2023 4:20 PM EDT XR FOOT 3 OR MORE VIEWS STAT 11/16/19 2:19 PM EDT Other specified soft tissue disorders TROPONIN T, HIGH SENSITIVITY Routine 11/16/2023 2:08 PM EDT XR CHEST 1 VIEW STAT 11/16/2023 1:54 PM EDT Sepsis (HCC) Unspecified open wound of lower back and pelvis without penetration into retroperitoneum, initial encounter Exposure to other specified factors, initial encounter XR SACRUM COCCYX MINIMUM 2 VIEWS STAT 11/16/2023 1:54 PM EDT HC COMPATIBILITY ELECTRONIC CROSSMATCH STAT 11/16/2023 1:15 PM EDT LACTATE, WHOLE BLOOD WITH REFLEX IF ABNORMAL STAT 11/16/2023 1:06 PM EDT BLOOD GAS, VENOUS STAT 11/16/2023 1:0 6 PM EDT CULTURE, BLOOD STAT 11/16/2023 1:06 PM EDT URINALYSIS, REFLEX TO CULTURE STAT 11/16/2023 12:50 PM EDT URINALYSIS, REFLEX TO CULTURE (CUP ONLY) STAT 11/16/2023 12:50 PM EDT URINALYSIS, REFLEX TO CULTURE (NOT FOR NEUTROPENIC PATIENTS) STAT 11/16/2023 12:50 PM EDT EXTRA CARTER TOP Routine 11/16/2023 12:36 PM EDT EXTRA TUBES Routine 11/16/2023 12:36 PM EDT DIFFERENTIAL, AUTOMATED STAT 11/16/19 12:36 PM EDT TROPONIN T, HIGH SENSITIVITY STAT 11/16/2023 12:36 PM EDT PROCALCITONIN STAT 11/16/2023 12:36 PM EDT CLOSTRIDIUM DIFFICILE, PCR Routine 11/16/2023 12:36 PM EDT CRP (INFLAMMATORY MARKER) STAT 11/16/2023 12:36 PM EDT COMPREHENSIVE METABOLIC PANEL STAT 11/16/2023 12:36 PM EDT TYPE AND SCREEN STAT 11/16/2023 12:36 PM EDT CBC STAT 11/16/2023 12:36 PM EDT PT INR STAT 11/16/2023 12:36 PM EDT CULTURE, BLOOD STAT 11/16/2023 12:36 PM EDT APTT STAT 11/16/2023 12:36 PM EDT CBC STAT 11/16/2023 12:36 PM EDT HC ECG TRACING ONLY STAT 11/16/2023 1 1:59 AM EDT Sepsis (HCC) documented in this encounter Results * VASC DUPLEX VENOUS LE BILAT (11/28/2023 3:05 PM EDT) Anatomical Region Laterality Modality Lower Extremity, Vascular Ultras ound Impressions 11/28/2023 3:23 PM EDT : Right lower extremity with no evidence of acute deep venous thrombosis. Left lower extremity with no evidence of acute deep venous thrombosis. Narrative 11/28/2023 3:23 PM EDT VASCULAR LAB RESULTS DATE OF EXAM: 11/28/23 PRESENTING CONDITIONS: Edema, Unspecified Immediately before proceeding with the vascular lab procedure reported below, the identity of the patient, the correct exam and the correct procedural site were verified. PHYSICIAN REPORT: Lower Extremity Venous Duplex Examination Color flow Doppler, spectral analysis, and transducer compression techniques were applied during this ultrasound image examination. RIGHT LOWER EXTREMITY On duplex examination, the right common femoral vein, the sapheno-femoral junction, the femoral vein in the thigh and popliteal vein are all free of internal echoes and demonstrate normal transducer compressibility during ba scale imaging and normal respiratory and augmentation response during Doppler interrogation. The posterior tibial veins and peroneal veins demonstrate no evidence of thrombosis. LEFT LOWER EXTREMITY On duplex examination, the left common femoral vein, the sapheno-femoral junction, the femoral vein in the thigh, and popliteal vein are all free of internal echoes and demonstrate normal transducer compressibility during ba scale imaging and normal respiratory and augmentation response during Doppler interrogation. The posterior tibial veins and peroneal veins demonstrate no evidence of thrombosis. Renzo Diop MD RAD VASCULAR * (ABNORMAL) BASIC METABOLIC PANEL (11/28/2023 12:21 PM EDT) BUN 81(H) 6 - 20 mg/dL 11/28/2023 1:04 PM EDT LABORATORY [facility] CREATININE 2.1(H) 0.5 - 1.0 mg/dL 11/28/2023 1:04 PM EDT LABORATORY [facility] EGFR 26(L) >=60 mL/min 11/28/2023 1:04 PM EDT LABORATORY [facility] Comment:eGFR is calculated b ased on the CKD-EPI 2020 equation. SODIUM 131(L) 135 - 146 mmol/L 11/28/2023 1:04 PM EDT LABORATORY [facility] POTASSIUM 4.2 3.5 - 5.1 mmol/L 11/28/2023 1:04 PM EDT LABORATORY [facility] CHLORIDE 95(L) 98 - 107 mmol/L 11/28/2023 1:04 PM EDT LABORATORY [facility] CO2 22 22 - 32 mmol/L 11/28/2023 1:04 PM EDT LABORATORY [facility] ANION GAP 14 7 - 15 mmol/L 11/28/2023 1:04 PM EDT LABORATORY [facility] GLUCOSE 218(H) 70 - 120 mg/dL 11/28/2023 1:04 PM EDT LABORATORY [facility] CALCIUM 9.1 8.4 - 10.2 mg/dL 11/28/2023 1:04 PM EDT LABORATORY GL[facility] Blood Venous blood specimen / Unknown Venipuncture / Unknown 11/28/2023 12:21 PM EDT 11/28/2023 12:38 PM EDT Renzo Diop MD LAB BLOOD ORDERABLES LABORATORY [address] [address] * (ABNORMAL) GLUCOSE METER, POINT OF CARE (11/28/2023 11:20 AM EDT) GLUCOSE - POCT 211(H) 70 - 120 mg/dL 11/28/2023 11:39 AM EDT [facility] Blood Whole blood specimen / Unknown 11/28/2023 11:20 AM EDT 11/28/2023 11:39 AM EDT Renzo Diop MD LAB POINT OF CARE TE ST DOCKED DEVICE UNSOLICITED RESULTS Performing Organization Address [facility] Co de Phone Number [facility] [address] [place] [phone] * (ABNORMAL) GLUCOSE METER, POINT OF CARE (11/28/2023 8:00 AM EDT) GLUCOSE - POCT 121(H) 70 - 120 mg/dL 11/28/2023 8:06 AM EDT [facility] Blood Whole blood specimen / Unknown 11/28/2023 8:00 AM EDT 11/28/2023 8:05 AM EDT Renzo Diop MD LAB POINT OF CARE TE ST DOCKED DEVICE UNSOLICITED RESULTS Performing Organization Address [facility] Co de Phone Number [facility] [address] [place] [phone] * (ABNORMAL) PROCALCITONIN (11/28/2023 6:44 AM EDT) Procalcitonin 0.18(H) <0.10 ng/mL 11/28/2023 7:22 AM EDT LABORATORY GL Blood Venous blood specimen / Unknown Venipuncture / Unknown 11/28/2023 6:44 AM EDT 11/28/2023 6:50 AM EDT Narrative LABORATORY [facility] - 11/28/2023 7:22 AM EDT Less than 0.5 ng/mL: Low risk for progression to sepsis. Review patients condition for localized infections. 0.5 to 2.0 ng/mL: Intermediate risk for progresion to sepsis. Review underlying conditions. Recommend repeat PCT after 6 hours has elapsed. Greater than 2.0 ng/mL: high risk for progression to sepsis unless other causes are known. Renzo Diop MD LAB BLOOD ORDERABLES Performing Organization Address City/[facility] Co de Phone Number LABORATORY [address] [phone] * (ABNORMAL) CRP (INFLAMMATORY MARKER) (11/28/2023 6:44 AM EDT) CRP (Inflammatory Marker) 158(H) <=5 mg/L 11/28/2023 7:33 AM EDT LABORATORY [facility] Blood Venous blood specimen / Unknown Venipuncture / Unknown 11/28/2023 6:44 AM EDT 11/28/2023 6:50 AM EDT Renzo Diop MD LAB BLOOD ORDERABLES Performing Organization Address [facility] Co de Phone Number LABORATORY [address] [phone] * (ABNORMAL) BASIC METABOLIC PANEL (11/28/2023 6:44 AM EDT) BUN 85(H) 6 - 20 mg/dL 11/28/2023 7:33 AM EDT LABORATORY GL CREATININE 2.3(H) 0.5 - 1.0 mg/dL 11/28/2023 7:33 AM EDT LABORATORY GL EGFR 24(L) >=60 mL/min 11/28/2023 7:33 AM EDT LABORATORY GL Comment:eGFR is calculated b ased on the CKD-EPI 2020 equation. SODIUM 129(L) 135 - 146 mmol/L 11/28/2023 7:33 AM EDT LABORATORY [facility] POTASSIUM 4.4 3.5 - 5.1 mmol/L 11/28/2023 7:33 AM EDT LABORATORY [facility] CHLORIDE 93(L) 98 - 107 mmol/L 11/28/2023 7:33 AM EDT LABORATORY GL[facility] CO2 24 22 - 32 mmol/L 11/28/2023 7:33 AM EDT LABORATORY GL[facility] ANION GAP 12 7 - 15 mmol/L 11/28/2023 7:33 AM EDT LABORATORY GL[facility] GLUCOSE 131(H) 70 - 120 mg/dL 11/28/2023 7:33 AM EDT LABORATORY [facility] CALCIUM 9.3 8.4 - 10.2 mg/dL 11/28/2023 7:33 AM EDT LABORATORY [facility] Blood Venous blood specimen / Unknown Venipuncture / Unknown 11/28/2023 6:44 AM EDT 11/28/2023 6:50 AM EDT Renzo Diop MD LAB BLOOD ORDERABLES LABORATORY [address] [address] * (ABNORMAL) CBC (11/28/2023 6:44 AM EDT) WBC 12.68(H) 4.00 - 10.80 K/uL 11/28/2023 7:02 AM EDT LABORATORY [facility] RBC 3.11 3.85 - 5.15 M/uL 11/28/2023 7:02 AM EDT LABORATORY [facility] HGB 8.7(L) 12.0 - 15.3 g/dL 11/28/2023 7:02 AM EDT LABORATORY [facility] HCT 27.8(L) 36.0 - 45.2 % 11/28/2023 7:02 AM EDT LABORATORY [facility] MCV 89.4 81.5 - 97.5 fL 11/28/2023 7:02 AM EDT LABORATORY [facility] MCH 28.0 27.0 - 34.0 pg 11/28/2023 7:02 AM EDT LABORATORY GL[facility] MCHC 31.3 32.0 - 36.0 g/dL 11/28/2023 7:02 AM EDT LABORATORY [facility] RDW 14.7 11.5 - 15.5 % 11/28/2023 7:02 AM EDT LABORATORY [facility] PLT 503(H) 140 - 400 K/uL 11/28/2023 7:02 AM EDT LABORATORY [facility] MPV 9.8 6.6 - 11.1 fL 11/28/2023 7:02 AM EDT LABORATORY [facility] nRBCs 0 <=0 /100 WBCs 11/28/2023 7:02 AM EDT LABORATORY [facility] Blood Venous blood specimen / Unknown Venipuncture / Unknown 11/28/2023 6:44 AM EDT 11/28/2023 6:51 AM EDT Renzo Diop MD LAB BLOOD ORDERABLES Performing Organization Address City/[facility]/ZIP Co de Phone Number LABORATORY [address] [address] * (ABNORMAL) GLUCOSE METER, POINT OF CARE (11/27/2023 9:35 PM EDT) GLUCOSE - POCT 161(H) 70 - 120 mg/dL 11/28/2023 1:53 AM EDT [facility] Blood Whole blood specimen / Unknown 11/27/2023 9:35 PM EDT 11/28/2023 1:53 AM EDT Renzo Diop MD LAB POINT OF CARE TE ST DOCKED DEVICE UNSOLICITED RESULTS [facility] [address] [place] [phone] * (ABNORMAL) GLUCOSE METER, POINT OF CARE (11/27/2023 4:52 PM EDT) GLUCOSE - POCT 168(H) 70 - 120 mg/dL 11/27/2023 4:55 PM EDT [facility] Blood Whole blood specimen / Unknown 11/27/2023 4:52 PM EDT 11/27/2023 4:55 PM EDT Renzo Diop MD LAB POINT OF CARE TE ST DOCKED DEVICE UNSOLICITED RESULTS Performing Organization Address City/[facility]/ZIP Co de Phone Number [facility] [address] [place] [address] * (ABNORMAL) GLUCOSE METER, POINT OF CARE (11/27/2023 11:25 AM EDT) [facility] GLUCOSE - POCT 169(H) 70 - 120 mg/dL 11/27/2023 12:08 PM EDT [facility] Blood Whole blood specimen / Unknown 11/27/2023 11:25 AM EDT 11/27/2023 12:08 PM EDT Renzo Diop MD LAB POINT OF CARE TE ST DOCKED DEVICE UNSOLICITED RESULTS Performing Organization Address [facility] Co de Phone Number [facility] [address] [place] [address] * (ABNORMAL) BASIC METABOLIC PANEL (11/27/2023 8:49 AM EDT) [facility] BUN 87(H) 6 - 20 mg/dL 11/27/2023 9:20 AM EDT LABORATORY [facility] CREATININE 2.1(H) 0.5 - 1.0 mg/dL 11/27/2023 9:20 AM EDT LABORATORY [facility] EGFR 26(L) >=60 mL/min 11/27/2023 9:20 AM EDT LABORATORY [facility] Comment:eGFR is calculated b ased on the CKD-EPI 2020 equation. SODIUM 132(L) 135 - 146 mmol/L 11/27/2023 9:20 AM EDT LABORATORY [facility] POTASSIUM 4.7 3.5 - 5.1 mmol/L 11/27/2023 9:20 AM EDT LABORATORY [facility] CHLORIDE 93(L) 98 - 107 mmol/L 11/27/2023 9:20 AM EDT LABORATORY GL[facility] CO2 24 22 - 32 mmol/L 11/27/2023 9:20 AM EDT LABORATORY GL[facility] ANION GAP 15 7 - 15 mmol/L 11/27/2023 9:20 AM EDT LABORATORY [facility] GLUCOSE 108 70 - 120 mg/dL 11/27/2023 9:20 AM EDT LABORATORY [facility] CALCIUM 9.7 8.4 - 10.2 mg/dL 11/27/2023 9:20 AM EDT LABORATORY [facility] Blood Venous blood specimen / Unknown Venipuncture / Unknown 11/27/2023 8:49 AM EDT 11/27/2023 9:02 AM EDT Renzo Diop MD LAB BLOOD ORDERABLES LABORATORY [facility] [address] [place] [address] * (ABNORMAL) CBC (11/27/2023 8:49 AM EDT) WBC 14.35(H) 4.00 - 10.80 K/uL 11/27/2023 9:07 AM EDT LABORATORY [facility] RBC 3.30 3.85 - 5.15 M/uL 11/27/2023 9:07 AM EDT LABORATORY [facility] HGB 9.3(L) 12.0 - 15.3 g/dL 11/27/2023 9:07 AM EDT LABORATORY [facility] HCT 29.2(L) 36.0 - 45.2 % 11/27/2023 9:07 AM EDT LABORATORY [facility] MCV 88.5 81.5 - 97.5 fL 11/27/2023 9:07 AM EDT LABORATORY [facility] MCH 28.2 27.0 - 34.0 pg 11/27/2023 9:07 AM EDT LABORATORY [facility] MCHC 31.8 32.0 - 36.0 g/dL 11/27/2023 9:07 AM EDT LABORATORY [facility] RDW 14.6 11.5 - 15.5 % 11/27/2023 9:07 AM EDT LABORATORY [facility] PLT 580(H) 140 - 400 K/uL 11/27/2023 9:07 AM EDT LABORATORY [facility] MPV 9.7 6.6 - 11.1 fL 11/27/2023 9:07 AM EDT LABORATORY [facility] nRBCs 0 <=0 /100 WBCs 11/27/2023 9:07 AM EDT LABORATORY [facility] Blood Venous blood specimen / Unknown Venipuncture / Unknown 11/27/2023 8:49 AM EDT 11/27/2023 9:02 AM EDT Renzo Diop MD LAB BLOOD ORDERABLES Performing Organization Address City/[facility]/ZIP Co de Phone Number LABORATORY [address] [phone] * GLUCOSE METER, POINT OF CARE (11/27/2023 7:35 AM EDT) GLUCOSE - POCT 93 70 - 120 mg/dL 11/27/2023 7:47 AM EDT [facility] Blood Whole blood specimen / Unknown 11/27/2023 7:35 AM EDT 11/27/2023 7:47 AM EDT Renzo Diop MD LAB POINT OF CARE TE ST DOCKED DEVICE UNSOLICITED RESULTS Performing Organization Address [facility] Co de Phone Number [facility] [address] [place] [phone] * (ABNORMAL) GLUCOSE METER, POINT OF CARE (11/26/2023 9:38 PM EDT) GLUCOSE - POCT 202(H) 70 - 120 mg/dL 11/26/2023 9:55 PM EDT [facility] Blood Whole blood specimen / Unknown 11/26/2023 9:38 PM EDT 11/26/2023 9:55 PM EDT Renzo Diop MD LAB POINT OF CARE TE ST DOCKED DEVICE UNSOLICITED RESULTS Performing Organization Address [facility] Co de Phone Number [facility] [address] [place] [phone] * (ABNORMAL) GLUCOSE METER, POINT OF CARE (11/26/2023 4:28 PM EDT) GLUCOSE - POCT 127(H) 70 - 120 mg/dL 11/26/2023 4:31 PM EDT [facility] Blood Whole blood specimen / Unknown 11/26/2023 4:28 PM EDT 11/26/2023 4:31 PM EDT Renzo Diop MD LAB POINT OF CARE TE ST DOCKED DEVICE UNSOLICITED RESULTS Performing Organization Address City/[facility]/ZIP Co de Phone Number [facility] [address] [place] [address] * (ABNORMAL) GLUCOSE METER, POINT OF CARE (11/26/2023 11:25 AM EDT) GLUCOSE - POCT 253(H) 70 - 120 mg/dL 11/26/2023 11:50 AM EDT [facility] Blood Whole blood specimen / Unknown 11/26/2023 11:25 AM EDT 11/26/2023 11:50 AM EDT Renzo Diop MD LAB POINT OF CARE TE ST DOCKED DEVICE UNSOLICITED RESULTS Performing Organization Address [facility] Co de Phone Number [facility] [address] [place] [address] * (ABNORMAL) BASIC METABOLIC PANEL (11/26/2023 10:03 AM EDT) BUN 89(H) 6 - 20 mg/dL 11/26/2023 11:10 AM EDT [facility] CREATININE 2.1(H) 0.5 - 1.0 mg/dL 11/26/2023 11:10 AM EDT [facility] EGFR 25(L) >=60 mL/min 11/26/2023 11:10 AM EDT [facility] Comment:eGFR is calculated b ased on the CKD-EPI 2020 equation. SODIUM 134(L) 135 - 146 mmol/L 11/26/2023 11:10 AM EDT [facility] POTASSIUM 4.3 3.5 - 5.1 mmol/L 11/26/2023 11:10 AM EDT [facility] CHLORIDE 95(L) 98 - 107 mmol/L 11/26/2023 11:10 AM EDT [facility] CO2 24 22 - 32 mmol/L 11/26/2023 11:10 AM EDT [facility] ANION GAP 15 7 - 15 mmol/L 11/26/2023 11:10 AM EDT [facility] GLUCOSE 224(H) 70 - 120 mg/dL 11/26/2023 11:10 AM EDT [facility] CALCIUM 9.2 8.4 - 10.2 mg/dL 11/26/2023 11:10 AM EDT [facility] Blood Venous blood specimen / Unknown Venipuncture / Unknown 11/26/2023 10:03 AM EDT 11/26/2023 10:10 AM EDT Renzo Diop MD LAB BLOOD ORDERABLES Performing Organization Address City/[facility]/ZIP Co de Phone Number LABORATORY GL [address] [place] [address] * (ABNORMAL) GLUCOSE METER, POINT OF CARE (11/26/2023 7:27 AM EDT) GLUCOSE - POCT 134(H) 70 - 120 mg/dL 11/26/2023 7:47 AM EDT [facility] Blood Whole blood specimen / Unknown 11/26/2023 7:27 AM EDT 11/26/2023 7:47 AM EDT Renzo Diop MD LAB POINT OF CARE TE ST DOCKED DEVICE UNSOLICITED RESULTS Performing Organization Address City/[facility]/ZIP Co de Phone Number [facility] [address] [place] [phone] * (ABNORMAL) BASIC METABOLIC PANEL (11/26/2023 7:07 AM EDT) BUN 93(H) 6 - 20 mg/dL 11/26/2023 8:15 AM EDT [facility] CREATININE 2.2(H) 0.5 - 1.0 mg/dL 11/26/2023 8:15 AM EDT [facility] EGFR 25(L) >=60 mL/min 11/26/2023 8:15 AM EDT [facility] Comment:eGFR is calculated b ased on the CKD-EPI 2020 equation. SODIUM 136 135 - 146 mmol/L 11/26/2023 8:15 AM EDT [facility] POTASSIUM 11/26/2023 8:15 AM EDT [facility] Comment: Specimen too hemolyzed. Reorder if needed. CHLORIDE 95(L) 98 - 107 mmol/L 11/26/2023 8:15 AM EDT [facility] CO2 24 22 - 32 mmol/L 11/26/2023 8:15 AM EDT [facility] ANION GAP 17(H) 7 - 15 mmol/L 11/26/2023 8:15 AM EDT [facility] GLUCOSE 129(H) 70 - 120 mg/dL 11/26/2023 8:15 AM EDT [facility] CALCIUM 8.8 8.4 - 10.2 mg/dL 11/26/2023 8:15 AM EDT [facility] Blood Capillary blood specimen / Unknown Arterial Puncture / Unknown 11/26/2023 7:07 AM EDT 11/26/2023 7:11 AM EDT Renzo Diop MD LAB BLOOD ORDERABLES LABORATORY [address] [address] * (ABNORMAL) CBC (11/26/2023 7:07 AM EDT) WBC 14.31(H) 4.00 - 10.80 K/uL 11/26/2023 7:36 AM EDT LABORATORY GL[facility] RBC 3.16 3.85 - 5.15 M/uL 11/26/2023 7:36 AM EDT LABORATORY GL[facility] HGB 9.0(L) 12.0 - 15.3 g/dL 11/26/2023 7:36 AM EDT LABORATORY GL[facility] HCT 26.9(L) 36.0 - 45.2 % 11/26/2023 7:36 AM EDT LABORATORY GL[facility] MCV 85.1 81.5 - 97.5 fL 11/26/2023 7:36 AM EDT LABORATORY GL[facility] MCH 28.5 27.0 - 34.0 pg 11/26/2023 7:36 AM EDT LABORATORY GL[facility] MCHC 33.5 32.0 - 36.0 g/dL 11/26/2023 7:36 AM EDT LABORATORY [facility] RDW 14.5 11.5 - 15.5 % 11/26/2023 7:36 AM EDT LABORATORY [facility] PLT 456(H) 140 - 400 K/uL 11/26/2023 7:36 AM EDT LABORATORY [facility] MPV 10.8 6.6 - 11.1 fL 11/26/2023 7:36 AM EDT LABORATORY [facility] nRBCs 1(H) <=0 /100 WBCs 11/26/2023 7:36 AM EDT LABORATORY [facility] Blood Capillary blood specimen / Unknown Capillary / Unknown 11/26/2023 7:07 AM EDT 11/26/2023 7:11 AM EDT Renzo Diop MD LAB BLOOD ORDERABLES Performing Organization Address City/[facility]/ZIP Co de Phone Number LABORATORY [address] [address] * (ABNORMAL) GLUCOSE METER, POINT OF CARE (11/25/2023 9:24 PM EDT) GLUCOSE - POCT 189(H) 70 - 120 mg/dL 11/25/2023 9:34 PM T [facility] Blood Whole blood specimen / Unknown 11/25/2023 9:24 PM EDT 11/25/2023 9:34 PM EDT Renzo Diop MD LAB POINT OF CARE TE ST DOCKED DEVICE UNSOLICITED RESULTS [facility] [address] [place] [id number] * (ABNORMAL) GLUCOSE METER, POINT OF CARE (11/25/2023 4:29 PM EDT) GLUCOSE - POCT 184(H) 70 - 120 mg/dL 11/25/2023 4:34 PM EDT [facility] Blood Whole blood specimen / Unknown 11/25/2023 4:29 PM EDT 11/25/2023 4:34 PM EDT Renzo Diop MD LAB POINT OF CARE TE ST DOCKED DEVICE UNSOLICITED RESULTS [facility] [address] [place] [address] * US EXTREMITY, NON-VASCULAR LIMITED (11/25/2023 12:18 PM EDT) Anatomical Region Laterality Modality Extremity, Lower Extremity, Upper Extremity Ultrasound 11/25/2023 12:0 5 PM EDT Impressions 11/25/2023 12:44 PM EDT IMPRESSION: 1. No focal fluid collection or mass identified 2. Swelling and edema. Question superficial thrombophlebitis. THIS DOCUMENT HAS BEEN ELECTRONICALLY SIGNED BY MATTHEW MCMILLAN MD Narrative 11/25/2023 12:44 PM EDT PROCEDURE INFORMATION: Exam: US Right Limited Joint or Other Non-Vascular Extremity Structure Exam date and time: 11/25/2023 12:05 PM Age: 63 years old Clinical indication: Cellulitis and mass or lump; Upper leg; Right; Additional info: Significant induration and skin necrosis noted in right medial thigh. Evaluate for abscess. TECHNIQUE: Imaging protocol: US right limited joint or other nonvascular extremity structure. Real-time ultrasound with image documentation. COMPARISON: US Lower Arterial 06/04/2023 1:47 PM FINDINGS: Soft tissues: Unremarkable. No loculated collections. Other findings: Ultrasound images demonstrate stranding and diffuse edema. No focal fluid collection or mass identified. Superficial vein in this area appears to have some increased echogenicity associated with it, suggesting either slow flow or some clot formation. Procedure Note Matthew Mcmillan MD - 11/25/2023 PROCEDURE INFORMATION: Exam: US Right Limited Joint or Other Non-Vascular Extremity Structure Exam date and time: 11/25/2023 12:05 PM Age: 63 years old Clinical indication: Cellulitis and mass or lump; Upper leg; Right;Additional info: Significant induration and skin necrosis noted in right medialthigh. Evaluate for abscess. TECHNIQUE: Imaging protocol: US right limited joint or other nonvascular extremity structure. Real-time ultrasound with image documentation. COMPARISON: US Lower Arterial 06/04/2023 1:47 PM FINDINGS: Soft tissues: Unremarkable. No loculated collections. Other findings: Ultrasound images demonstrate stranding and diffuse edema.No focal fluid collection or mass identified. Superficial vein in this area appears to have some increased echogenicity associated with it, suggesting either slow flow or some clot formation. IMPRESSION IMPRESSION: 1. No focal fluid collection or mass identified 2. Swelling and edema. Question superficial thrombophlebitis. THIS DOCUMENT HAS BEEN ELECTRONICALLY SIGNED BY MATTHEW MCMILLAN MD Renzo Diop MD RAD ULTRASOUND * (ABNORMAL) GLUCOSE METER, POINT OF CARE (11/25/2023 11:21 AM EDT) GLUCOSE - POCT 221(H) 70 - 120 mg/dL 11/25/2023 12:00 PM EDT [facility] Blood Whole blood specimen / Unknown 11/25/2023 11:21 AM EDT 11/25/2023 12:00 PM EDT Renzo Diop MD LAB POINT OF CARE TE ST DOCKED DEVICE UNSOLICITED RESULTS Performing Organization Address City/[facility]/ZIP Co de Phone Number [facility] [address] [place] [address] * (ABNORMAL) GLUCOSE METER, POINT OF CARE (11/25/2023 8:08 AM EDT) GLUCOSE - POCT 132(H) 70 - 120 mg/dL 11/25/2023 12:00 PM EDT [facility] Blood Whole blood specimen / Unknown 11/25/2023 8:08 AM EDT 11/25/2023 12:00 PM EDT Renzo Diop MD LAB POINT OF CARE TE ST DOCKED DEVICE UNSOLICITED RESULTS [facility] [address] [place] [address] * (ABNORMAL) PROCALCITONIN (11/25/2023 7:00 AM EDT) [facility] Procalcitonin 0.16(H) <0.10 ng/mL 11/25/2023 9:01 AM EDT LABORATORY [facility] Blood Venous blood specimen / Unknown Venipuncture / Unknown 11/25/2023 7:00 AM EDT 11/25/2023 7:18 AM EDT Narrative LABORATORY [facility] - 11/25/2023 9:01 AM EDT Less than 0.5 ng/mL: Low risk for progression to sepsis. Review patients condition for localized infections. 0.5 to 2.0 ng/mL: Intermediate risk for progresion to sepsis. Review underlying conditions. Recommend repeat PCT after 6 hours has elapsed. Greater than 2.0 ng/mL: high risk for progression to sepsis unless other causes are known. Renzo Diop MD LAB BLOOD ORDERABLES Performing Organization Address City/[facility]/ZIP Co de Phone Number LABORATORY [address] [address] * (ABNORMAL) CK (11/25/2023 7:00 AM EDT) [facility] CK 16(L) 26 - 192 U/L 11/25/2023 9:01 AM EDT LABORATORY [facility] Blood Venous blood specimen / Unknown Venipuncture / Unknown 11/25/2023 7:00 AM EDT 11/25/2023 7:18 AM EDT Renzo Diop MD LAB BLOOD ORDERABLES LABORATORY [address] [address] * (ABNORMAL) CRP (INFLAMMATORY MARKER) (11/25/2023 7:00 AM EDT) [facility] CRP (Inflammatory Marker) 170(H) <=5 mg/L 11/25/2023 9:01 AM EDT LABORATORY [facility] Blood Venous blood specimen / Unknown Venipuncture / Unknown 11/25/2023 7:00 AM EDT 11/25/2023 7:18 AM EDT Renzo Diop MD LAB BLOOD ORDERABLES LABORATORY GL [address] [place] [address] * (ABNORMAL) BASIC METABOLIC PANEL (11/25/2023 7:00 AM EDT) BUN 99(H) 6 - 20 mg/dL 11/25/2023 7:40 AM EDT LABORATORY [facility] CREATININE 2.2(H) 0.5 - 1.0 mg/dL 11/25/2023 7:40 AM EDT LABORATORY GL[facility] EGFR 24(L) >=60 mL/min 11/25/2023 7:40 AM EDT LABORATORY GL[facility] Comment:eGFR is calculated b ased on the CKD-EPI 2020 equation. SODIUM 133(L) 135 - 146 mmol/L 11/25/2023 7:40 AM EDT LABORATORY GL[facility] POTASSIUM 3.4(L) 3.5 - 5.1 mmol/L 11/25/2023 7:40 AM EDT LABORATORY [facility] CHLORIDE 92(L) 98 - 107 mmol/L 11/25/2023 7:40 AM EDT LABORATORY GL[facility] CO2 28 22 - 32 mmol/L 11/25/2023 7:40 AM EDT LABORATORY GL[facility] ANION GAP 13 7 - 15 mmol/L 11/25/2023 7:40 AM EDT LABORATORY [facility] GLUCOSE 138(H) 70 - 120 mg/dL 11/25/2023 7:40 AM EDT LABORATORY GL[facility] CALCIUM 9.2 8.4 - 10.2 mg/dL 11/25/2023 7:40 AM EDT LABORATORY GL[facility] Blood Venous blood specimen / Unknown Venipuncture / Unknown 11/25/2023 7:00 AM EDT 11/25/2023 7:18 AM EDT Renzo Diop MD LAB BLOOD ORDERABLES LABORATORY [facility] [address] [place] [address] * (ABNORMAL) CBC (11/25/2023 7:00 AM EDT) WBC 11.89(H) 4.00 - 10.80 K/uL 11/25/2023 7:21 AM EDT LABORATORY [facility] RBC 3.45 3.85 - 5.15 M/uL 11/25/2023 7:21 AM EDT LABORATORY [facility] HGB 9.8(L) 12.0 - 15.3 g/dL 11/25/2023 7:21 AM EDT LABORATORY [facility] HCT 30.9(L) 36.0 - 45.2 % 11/25/2023 7:21 AM EDT LABORATORY [facility] MCV 89.6 81.5 - 97.5 fL 11/25/2023 7:21 AM EDT LABORATORY [facility] MCH 28.4 27.0 - 34.0 pg 11/25/2023 7:21 AM EDT LABORATORY [facility] MCHC 31.7 32.0 - 36.0 g/dL 11/25/2023 7:21 AM EDT LABORATORY [facility] RDW 14.8 11.5 - 15.5 % 11/25/2023 7:21 AM EDT LABORATORY [facility] PLT 534(H) 140 - 400 K/uL 11/25/2023 7:21 AM EDT LABORATORY [facility] MPV 9.9 6.6 - 11.1 fL 11/25/2023 7:21 AM EDT LABORATORY [facility] nRBCs 0 <=0 /100 WBCs 11/25/2023 7:21 AM EDT LABORATORY [facility] Blood Venous blood specimen / Unknown Venipuncture / Unknown 11/25/2023 7:00 AM EDT 11/25/2023 7:18 AM EDT Renzo Diop MD LAB BLOOD ORDERABLES LABORATORY [facility] [address] [place] [address] * (ABNORMAL) GLUCOSE METER, POINT OF CARE (11/24/2023 9:20 PM EDT) GLUCOSE - POCT 187(H) 70 - 120 mg/dL 11/24[facility]2023 9:[facility] Blood Whole blood specimen / Unknown 11/24/2023 9:20 PM EDT 11/24/2023 9:39 PM EDT Renzo Diop MD LAB POINT OF CARE TE ST DOCKED DEVICE UNSOLICITED RESULTS Performing Organization Address [facility] Co de Phone Number [facility] [address] [facility] [place] [address] * (ABNORMAL) GLUCOSE METER, POINT OF CARE (11/24/2023 4:32 PM EDT) GLUCOSE - POCT 147(H) 70 - 120 mg/dL 11/24/2023 4:49 PM EDT [facility] Blood Whole blood specimen / Unknown 11/24/2023 4:32 PM EDT 11/24/2023 4:49 PM EDT Renzo Diop MD LAB POINT OF CARE TE ST DOCKED DEVICE UNSOLICITED RESULTS Performing Organization Address [facility] Co de Phone Number [facility] [address] [place] [address] * (ABNORMAL) GLUCOSE METER, POINT OF CARE (11/24/2023 11:48 AM EDT) GLUCOSE - POCT 160(H) 70 - 120 mg/dL 11/24/2023 4:49 PM EDT [facility] Blood Whole blood specimen / Unknown 11/24/2023 11:48 AM EDT 11/24/2023 4:49 PM EDT Renzo Diop MD LAB POINT OF CARE TE ST DOCKED DEVICE UNSOLICITED RESULTS Performing Organization Address [facility] Co de Phone Number [facility] [address] [place] [address] * GLUCOSE METER, POINT OF CARE (11/24/2023 7:34 AM EDT) GLUCOSE - POCT 106 70 - 120 mg/dL 11/24/2023 7:59 AM EDT [facility] Blood Whole blood specimen / Unknown 11/24/2023 7:34 AM EDT 11/24/2023 7:59 AM EDT Renzo Diop MD LAB POINT OF CARE TE ST DOCKED DEVICE UNSOLICITED RESULTS Performing Organization Address [facility] Co de Phone Number [facility] [address] [place] [phone] * (ABNORMAL) PROCALCITONIN (11/24/2023 6:17 AM EDT) Procalcitonin 0.14(H) <0.10 ng/mL 11/24/2023 12:03 PM EDT LABORATORY [facility] Blood Venous blood specimen / Unknown Venipuncture / Unknown 11/24/2023 6:17 AM EDT 11/24/2023 6:20 AM EDT Narrative LABORATORY GL - 11/24/2023 12:03 PM EDT Less than 0.5 ng/mL: Low risk for progression to sepsis. Review patients condition for localized infections. 0.5 to 2.0 ng/mL: Intermediate risk for progresion to sepsis. Review underlying conditions. Recommend repeat PCT after 6 hours has elapsed. Greater than 2.0 ng/mL: high risk for progression to sepsis unless other causes are known. Renzo Diop MD LAB BLOOD ORDERABLES Performing Organization Address [facility] Co de Phone Number LABORATORY [address] [address] * (ABNORMAL) DIFFERENTIAL, AUTOMATED (11/24/2023 6:17 AM EDT) WBC 11.19(H) 4.00 - 10.80 K/uL 11/24/2023 6:26 AM EDT LABORATORY GL Neutrophils % 74.9 40.0 - 75.0 % 11/24/2023 6:26 AM EDT LABORATORY GL Lymphocytes % 14.1(L) 18.0 - 42.0 % 11/24/2023 6:26 AM EDT LABORATORY GL Monocytes % 7.3 1.0 - 11.0 % 11/24/2023 6:26 AM EDT LABORATORY GL Eosinophils % 2.1 0.0 - 6.0 % 11/24/2023 6:26 AM EDT LABORATORY GL Basophils % 0.4 0.0 - 2.0 % 11/24/2023 6:26 AM EDT LABORATORY GL Immature Granulocytes % 1.2 0.0 - 2.0 % 11/24/2023 6:26 AM EDT LABORATORY [facility] Absolute Neutrophils 8.39(H) 1.80 - 7.70 K/uL 11/24/2023 6:26 AM EDT LABORATORY GL Absolute Lymphocytes 1.58 1.00 - 4.80 K/ul 11/24/2023 6:26 AM EDT LABORATORY [facility] Absolute Monocytes 0.82 0.00 - 1.10 K/uL 11/24/2023 6:26 AM EDT LABORATORY GL Absolute Eosinophils 0.23 0.00 - 0.70 K/uL 11/24/2023 6:26 AM EDT LABORATORY [facility] Absolute Basophils 0.04 0.00 - 0.20 K/uL 11/24/2023 6:26 AM EDT LABORATORY GL Absolute Immature Granulocytes 0.13 0.00 - 0.20 K/uL 11/24/2023 6:26 AM EDT LABORATORY [facility] Blood Venous blood specimen / Unknown Venipuncture / Unknown 11/24/2023 6:17 AM EDT 11/24/2023 6:20 AM EDT Min Min Pearl THAKUR LAB BLOOD ORDERABLES LABORATORY [address] [address] * (ABNORMAL) CBC (11/24/2023 6:17 AM EDT) [facility] WBC 11.19(H) 4.00 - 10.80 K/uL 11/24/2023 6:26 AM EDT LABORATORY [facility] RBC 2.84 3.85 - 5.15 M/uL 11/24/2023 6:26 AM EDT LABORATORY [facility] HGB 8.0(L) 12.0 - 15.3 g/dL 11/24/2023 6:26 AM EDT LABORATORY [facility] HCT 24.8(L) 36.0 - 45.2 % 11/24/2023 6:26 AM EDT LABORATORY [facility] MCV 87.3 81.5 - 97.5 fL 11/24/2023 6:26 AM EDT LABORATORY [facility] MCH 28.2 27.0 - 34.0 pg 11/24/2023 6:26 AM EDT LABORATORY [facility] MCHC 32.3 32.0 - 36.0 g/dL 11/24/2023 6:26 AM EDT LABORATORY [facility] RDW 14.5 11.5 - 15.5 % 11/24/2023 6:26 AM EDT LABORATORY [facility] PLT 455(H) 140 - 400 K/uL 11/24/2023 6:26 AM EDT LABORATORY [facility] MPV 9.7 6.6 - 11.1 fL 11/24/2023 6:26 AM EDT LABORATORY [facility] nRBCs 0 <=0 /100 WBCs 11/24/2023 6:26 AM EDT LABORATORY [facility] Blood Venous blood specimen / Unknown Venipuncture / Unknown 11/24/2023 6:17 AM EDT 11/24/2023 6:20 AM EDT Min Min Pearl THAKUR LAB BLOOD ORDERABLES LABORATORY [address] [address] * (ABNORMAL) CRP (INFLAMMATORY MARKER) (11/24/2023 6:17 AM EDT) Pathologist [facility] [place] CRP (Inflammatory Marker) 146(H) <=5 mg/L 11/24/2023 6:46 AM EDT LABORATORY [facility] Blood Venous blood specimen / Unknown Venipuncture / Unknown 11/24/2023 6:17 AM EDT 11/24/2023 6:20 AM EDT Min Min Pearl THAKUR LAB BLOOD ORDERABLES LABORATORY [address] [address] * (ABNORMAL) BASIC METABOLIC PANEL (11/24/2023 6:17 AM EDT) BUN 101(H) 6 - 20 mg/dL 11/24/2023 6:46 AM EDT LABORATORY GL[facility] CREATININE 2.5(H) 0.5 - 1.0 mg/dL 11/24/2023 6:46 AM EDT LABORATORY GL[facility] EGFR 21(L) >=60 mL/min 11/24/2023 6:46 AM EDT LABORATORY GLH Comment:eGFR is calculated b ased on the CKD-EPI 2020 equation. SODIUM 134(L) 135 - 146 mmol/L 11/24/2023 6:46 AM EDT LABORATORY GL[facility] POTASSIUM 3.4(L) 3.5 - 5.1 mmol/L 11/24/2023 6:46 AM EDT LABORATORY [facility] CHLORIDE 94(L) 98 - 107 mmol/L 11/24/2023 6:46 AM EDT LABORATORY GL[facility] CO2 27 22 - 32 mmol/L 11/24/2023 6:46 AM EDT LABORATORY GL[facility] ANION GAP 13 7 - 15 mmol/L 11/24/2023 6:46 AM EDT LABORATORY GL[facility] GLUCOSE 115 70 - 120 mg/dL 11/24/2023 6:46 AM EDT LABORATORY GL[facility] CALCIUM 8.8 8.4 - 10.2 mg/dL 11/24/2023 6:46 AM EDT LABORATORY [facility] Blood Venous blood specimen / Unknown Venipuncture / Unknown 11/24/2023 6:17 AM EDT 11/24/2023 6:20 AM EDT Min Min Pearl THAKUR LAB BLOOD ORDERABLES LABORATORY GL [address] [place] [address] * MAGNESIUM (11/23/2023 10:31 PM EDT) Magnesium 1.8 1.5 - 2.6 mg/dL 11/23/2023 11:36 PM EDT LABORATORY GL[facility] Blood Venous blood specimen / Unknown Venipuncture / Unknown 11/23/2023 10:31 PM EDT 11/23/2023 10:40 PM EDT Judith Umana [employer] LAB BLOOD ORDERAB LES LABORATORY GL [address] [place] [address] * (ABNORMAL) COMPREHENSIVE METABOLIC PANEL (11/23/2023 10:31 PM EDT) BUN 106(H) 6 - 20 mg/dL 11/23/2023 11:04 PM EDT LABORATORY GL[facility] CREATININE 2.4(H) 0.5 - 1.0 mg/dL 11/23/2023 11:04 PM EDT LABORATORY GL EGFR 22(L) >=60 mL/min 11/23/2023 11:04 PM EDT LABORATORY GLH Comment:eGFR is calculated b ased on the CKD-EPI 2020 equation. SODIUM 132(L) 135 - 146 mmol/L 11/23/2023 11:04 PM EDT LABORATORY GL[facility] POTASSIUM 4.0 3.5 - 5.1 mmol/L 11/23/2023 11:04 PM EDT LABORATORY GL[facility] CHLORIDE 91(L) 98 - 107 mmol/L 11/23/2023 11:04 PM EDT LABORATORY GL[facility] CO2 27 22 - 32 mmol/L 11/23/2023 11:04 PM EDT LABORATORY GL[facility] ANION GAP 14 7 - 15 mmol/L 11/23/2023 11:04 PM EDT LABORATORY GL[facility] GLUCOSE 186(H) 70 - 120 mg/dL 11/23/2023 11:04 PM EDT LABORATORY GL[facility] Albumin 2.3(L) 3.8 - 5.0 g/dL 11/23/2023 11:04 PM EDT LABORATORY GL[facility] AST 16 10 - 35 U/L 11/23/2023 11:04 PM EDT LABORATORY GL[facility] Alkaline Phosphatase 205(H) 35 - 130 U/L 11/23/2023 11:04 PM EDT LABORATORY GLH Bilirubin, Total <0.2 <=1.2 mg/dL 11/23/2023 11:04 PM EDT LABORATORY GL[facility] CALCIUM 8.9 8.4 - 10.2 mg/dL 11/23/2023 11:04 PM EDT LABORATORY GL[facility] Protein 6.9 6.0 - 8.3 g/dL 11/23/2023 11:04 PM EDT LABORATORY GL[facility] ALT 6(L) 10 - 35 U/L 11/23/2023 11:04 PM EDT LABORATORY GL[facility] Blood Venous blood specimen / Unknown Venipuncture / Unknown 11/23/2023 10:31 PM EDT 11/23/2023 10:40 PM EDT Judith Uamna SANDRA LAB BLOOD ORDERAB LES LABORATORY [address] [address] * LACTATE (11/23/2023 10:31 PM EDT) Pathologist [facility] [place] Lactate 1.1 0.4 - 2.0 mmol/L 11/23/2023 11:04 PM EDT LABORATORY GL Blood Venous blood specimen / Unknown Venipuncture / Unknown 11/23/2023 10:31 PM EDT 11/23/2023 10:40 PM EDT Judith Lyn Dong FLORES LAB BLOOD ORDERAB LES Performing Organization Address City/[facility]/ZIP Co de Phone Number LABORATORY [address] [address] * (ABNORMAL) CBC (11/23/2023 10:31 PM EDT) WBC 13.09(H) 4.00 - 10.80 K/uL 11/23/2023 10:43 PM EDT LABORATORY GL[facility] RBC 3.34 3.85 - 5.15 M/uL 11/23/2023 10:43 PM EDT LABORATORY GL[facility] HGB 9.4(L) 12.0 - 15.3 g/dL 11/23/2023 10:43 PM EDT LABORATORY GL[facility] HCT 29.4(L) 36.0 - 45.2 % 11/23/2023 10:43 PM EDT LABORATORY GL[facility] MCV 88.0 81.5 - 97.5 fL 11/23/2023 10:43 PM EDT LABORATORY GLH MCH 28.1 27.0 - 34.0 pg 11/23/2023 10:43 PM EDT LABORATORY [facility] MCHC 32.0 32.0 - 36.0 g/dL 11/23/2023 10:43 PM EDT LABORATORY [facility] RDW 14.5 11.5 - 15.5 % 11/23/2023 10:43 PM EDT LABORATORY [facility] PLT 518(H) 140 - 400 K/uL 11/23/2023 10:43 PM EDT LABORATORY [facility] MPV 10.0 6.6 - 11.1 fL 11/23/2023 10:43 PM EDT LABORATORY [facility] nRBCs 0 <=0 /100 WBCs 11/23/2023 10:43 PM EDT LABORATORY [facility] Blood Venous blood specimen / Unknown Venipuncture / Unknown 11/23/2023 10:31 PM EDT 11/23/2023 10:40 PM EDT Judith FLORES LAB BLOOD ORDERAB LES LABORATORY [address] [address] * (ABNORMAL) GLUCOSE METER, POINT OF CARE (11/23/2023 9:06 PM EDT) [facility] GLUCOSE - POCT 184(H) 70 - 120 mg/dL 11/23/2023 9:08 PM EDT [facility] Blood Whole blood specimen / Unknown 11/23/2023 9:06 PM EDT 11/23/2023 9:08 PM EDT Min Min Pearl THAKUR LAB POINT OF CARE TE ST DOCKED DEVICE UNSOLICITED RESULTS [facility] [address] [place] [id number] * (ABNORMAL) GLUCOSE METER, POINT OF CARE (11/23/2023 4:43 PM EDT) GLUCOSE - POCT 197(H) 70 - 120 mg/dL 11/23/2023 4:47 PM EDT [facility] Blood Whole blood specimen / Unknown 11/23/2023 4:43 PM EDT 11/23/2023 4:46 PM EDT Min Min Pearl THAKUR LAB POINT OF CARE TE ST DOCKED DEVICE UNSOLICITED RESULTS [facility] [address] [place] [address] * CT ABD/PELVIS WO IV/ORAL CONTRAST (11/23/2023 4:19 PM EDT) Anatomical Region Laterality Modality Body, Abdomen, Pelvis Computed T omography 11/23/2023 4:15 PM EDT Impressions 11/23/2023 4:55 PM EDT IMPRESSION: 1. Study limited by lack of contrast. 2. Trace right pleural effusion. 3. No hydronephrosis or ureteral stone. 4. No bowel obstruction or abscess. 5. No other acute pathology seen. As above. THIS DOCUMENT HAS BEEN ELECTRONICALLY SIGNED BY EUGENIE TELLEZ MD Narrative 11/23/2023 4:55 PM EDT PROCEDURE INFORMATION: Exam: CT Abdomen And Pelvis Without Contrast Exam date and time: 11/23/2023 4:15 PM Age: 63 years old Clinical indication: Other: Right sided abdominal pain TECHNIQUE: Imaging protocol: Computed tomography of the abdomen and pelvis without contrast. Radiation optimization: All CT scans at this facility use at least one of these dose optimization techniques: automated exposure control; mA and/or kV adjustment per patient size (includes targeted exams where dose is matched to clinical indication); or iterative reconstruction. COMPARISON: CT ABD/PELVIS WO IV/ORAL CONTRAST 11/16/2023 4:55 PM FINDINGS: Tubes, catheters and devices: Pruett catheter. Pleural spaces: Trace right pleural effusion. Heart: Large heart. Valvular and coronary artery calcifications. Liver: Normal. No mass. Gallbladder and biliary ducts: Normal. No calcified stones. No ductal dilation. Pancreas: Normal. No ductal dilation. Spleen: Normal. No splenomegaly. Adrenal glands: Normal. No mass. Kidneys and ureters: No hydronephrosis or ureteral stone. Stomach and bowel: No bowel obstruction or abscess. Appendix: No evidence of appendicitis. Intraperitoneal space: Unremarkable. No free air. No significant fluid collection. Vasculature: Severe atherosclerosis without aneurysm. Lymph nodes: Unremarkable. No enlarged lymph nodes. Urinary bladder: Unremarkable as visualized. Reproductive: Unremarkable as visualized. Bones/joints: No acute fracture. Soft tissues: Unremarkable. Other findings: Study limited by lack of contrast. No other acute pathology seen. As above. Procedure Note Eugenie Tellez MD - 11/23/2023 PROCEDURE INFORMATION: Exam: CT Abdomen And Pelvis Without Contrast Exam date and time: 11/23/2023 4:15 PM Age: 63 years old Clinical indication: Other: Right sided abdominal pain TECHNIQUE: Imaging protocol: Computed tomography of the abdomen and pelvis without contrast. Radiation optimization: All CT scans at this facility use at least one ofthese dose optimization techniques: automated exposure control; mA and/or kV adjustment per patient size (includes targeted exams where dose is matchedto clinical indication); or iterative reconstruction. COMPARISON: CT ABD/PELVIS WO IV/ORAL CONTRAST 11/16/2023 4:55 PM FINDINGS: Tubes, catheters and devices: Pruett catheter. Pleural spaces: Trace right pleural effusion. Heart: Large heart. Valvular and coronary artery calcifications. Liver: Normal. No mass. Gallbladder and biliary ducts: Normal. No calcified stones. No ductaldilation. Pancreas: Normal. No ductal dilation. Spleen: Normal. No splenomegaly. Adrenal glands: Normal. No mass. Kidneys and ureters: No hydronephrosis or ureteral stone. Stomach and bowel: No bowel obstruction or abscess. Appendix: No evidence of appendicitis. Intraperitoneal space: Unremarkable. No free air. No significant fluid collection. Vasculature: Severe atherosclerosis without aneurysm. Lymph nodes: Unremarkable. No enlarged lymph nodes. Urinary bladder: Unremarkable as visualized. Reproductive: Unremarkable as visualized. Bones/joints: No acute fracture. Soft tissues: Unremarkable. Other findings: Study limited by lack of contrast. No other acutepathology seen. As above. IMPRESSION IMPRESSION: 1. Study limited by lack of contrast. 2. Trace right pleural effusion. 3. No hydronephrosis or ureteral stone. 4. No bowel obstruction or abscess. 5. No other acute pathology seen. As above. THIS DOCUMENT HAS BEEN ELECTRONICALLY SIGNED BY EUGENIE TELLEZ MD [facility] RAD CT * (ABNORMAL) BASIC METABOLIC PANEL (11/23/2023 3:06 PM EDT) BUN 108(H) 6 - 20 mg/dL 11/23/2023 3:43 PM EDT LABORATORY [facility] CREATININE 2.5(H) 0.5 - 1.0 mg/dL 11/23/2023 3:43 PM EDT LABORATORY GL EGFR 21(L) >=60 mL/min 11/23/2023 3:43 PM EDT LABORATORY [facility] Comment:eGFR is calculated b ased on the CKD-EPI 2020 equation. SODIUM 128(L) 135 - 146 mmol/L 11/23/2023 3:43 PM EDT LABORATORY GL POTASSIUM 3.9 3.5 - 5.1 mmol/L 11/23/2023 3:43 PM EDT LABORATORY GL CHLORIDE 89(L) 98 - 107 mmol/L 11/23/2023 3:43 PM EDT LABORATORY GLH CO2 23 22 - 32 mmol/L 11/23/2023 3:43 PM EDT LABORATORY GL ANION GAP 16(H) 7 - 15 mmol/L 11/23/2023 3:43 PM EDT LABORATORY GL GLUCOSE 199(H) 70 - 120 mg/dL 11/23/2023 3:43 PM EDT LABORATORY GL CALCIUM 9.1 8.4 - 10.2 mg/dL 11/23/2023 3:43 PM EDT LABORATORY [facility] Blood Venous blood specimen / Unknown Venipuncture / Unknown 11/23/2023 3:06 PM EDT 11/23/2023 3:12 PM EDT Min Min Pearl THAKUR LAB BLOOD ORDERABLES LABORATORY [facility] [address] [place] [address] * LIPASE (11/23/2023 3:06 PM EDT) Lipase 18 13 - 60 U/L 11/23/2023 3:43 PM EDT LABORATORY [facility] Blood Venous blood specimen / Unknown Venipuncture / Unknown 11/23/2023 3:06 PM EDT 11/23/2023 3:12 PM EDT Min Min Pearl THAKUR LAB BLOOD ORDERABLES LABORATORY [address] [address] * (ABNORMAL) CBC (11/23/2023 3:05 PM EDT) WBC 16.82(H) 4.00 - 10.80 K/uL 11/23/2023 3:22 PM EDT LABORATORY [facility] RBC 3.53 3.85 - 5.15 M/uL 11/23/2023 3:22 PM EDT LABORATORY [facility] HGB 9.9(L) 12.0 - 15.3 g/dL 11/23/2023 3:22 PM EDT LABORATORY [facility] HCT 31.6(L) 36.0 - 45.2 % 11/23/2023 3:22 PM EDT LABORATORY [facility] MCV 89.5 81.5 - 97.5 fL 11/23/2023 3:22 PM EDT LABORATORY [facility] MCH 28.0 27.0 - 34.0 pg 11/23/2023 3:22 PM EDT LABORATORY [facility] MCHC 31.3 32.0 - 36.0 g/dL 11/23/2023 3:22 PM EDT LABORATORY [facility] RDW 14.6 11.5 - 15.5 % 11/23/2023 3:22 PM EDT LABORATORY [facility] PLT 490(H) 140 - 400 K/uL 11/23/2023 3:22 PM EDT LABORATORY [facility] MPV 10.2 6.6 - 11.1 fL 11/23/2023 3:22 PM EDT LABORATORY [facility] nRBCs 0 <=0 /100 WBCs 11/23/2023 3:22 PM EDT LABORATORY [facility] Blood Venous blood specimen / Unknown Venipuncture / Unknown 11/23/2023 3:05 PM EDT 11/23/2023 3:12 PM EDT Min Min Pearl THAKUR LAB BLOOD ORDERABLES LABORATORY [address] [address] * LACTATE (11/23/2023 3:05 PM EDT) Pathologist [facility] [place] Lactate 1.2 0.4 - 2.0 mmol/L 11/23/2023 3:40 PM EDT LABORATORY [facility] Blood Venous blood specimen / Unknown Venipuncture / Unknown 11/23/2023 3:05 PM EDT 11/23/2023 3:12 PM EDT Min Min Pearl THAKUR LAB BLOOD ORDERABLES LABORATORY [facility] [address] [place] [address] * (ABNORMAL) GLUCOSE METER, POINT OF CARE (11/23/2023 11:26 AM EDT) [facility] GLUCOSE - POCT 183(H) 70 - 120 mg/dL 11/23/2023 1:43 PM EDT [facility] Blood Whole blood specimen / Unknown 11/23/2023 11:26 AM EDT 11/23/2023 1:43 PM EDT Min Min Pearl THAKUR LAB POINT OF CARE TE ST DOCKED DEVICE UNSOLICITED RESULTS Performing Organization Address [facility] de Phone Number [facility] [address] [place] [phone] * (ABNORMAL) GLUCOSE METER, POINT OF CARE (11/23/2023 7:52 AM EDT) [facility] GLUCOSE - POCT 134(H) 70 - 120 mg/dL 11/23/2023 8:24 AM EDT [facility] Blood Whole blood specimen / Unknown 11/23/2023 7:52 AM EDT 11/23/2023 8:24 AM EDT Min Min Pearl THAKUR LAB POINT OF CARE TE ST DOCKED DEVICE UNSOLICITED RESULTS Performing Organization Address [facility] Co de Phone Number [facility] [address] [place] [phone] * (ABNORMAL) PROCALCITONIN (11/23/2023 7:34 AM EDT) Procalcitonin 0.15(H) <0.10 ng/mL 11/23/2023 3:26 PM EDT LABORATORY [facility] Blood Venous blood specimen / Unknown Venipuncture / Unknown 11/23/2023 7:34 AM EDT 11/23/2023 8:37 AM EDT Narrative LABORATORY [facility] - 11/23/2023 3:26 PM EDT Less than 0.5 ng/mL: Low risk for progression to sepsis. Review patients condition for localized infections. 0.5 to 2.0 ng/mL: Intermediate risk for progresion to sepsis. Review underlying conditions. Recommend repeat PCT after 6 hours has elapsed. Greater than 2.0 ng/mL: high risk for progression to sepsis unless other causes are known. Min Min Pearl THAKUR LAB BLOOD ORDERABLES Performing Organization Address City/State/[facility] Co de Phone Number LABORATORY [address] [address] * (ABNORMAL) DIFFERENTIAL, AUTOMATED (11/23/2023 7:34 AM EDT) WBC 12.02(H) 4.00 - 10.80 K/uL 11/23/2023 8:48 AM EDT LABORATORY [facility] Neutrophils % 73.1 40.0 - 75.0 % 11/23/2023 8:48 AM EDT LABORATORY [facility] Lymphocytes % 14.4(L) 18.0 - 42.0 % 11/23/2023 8:48 AM EDT LABORATORY [facility] Monocytes % 6.7 1.0 - 11.0 % 11/23/2023 8:48 AM EDT LABORATORY [facility] Eosinophils % 3.7 0.0 - 6.0 % 11/23/2023 8:48 AM EDT LABORATORY [facility] Basophils % 0.4 0.0 - 2.0 % 11/23/2023 8:48 AM EDT LABORATORY [facility] Immature Granulocytes % 1.7 0.0 - 2.0 % 11/23/2023 8:48 AM EDT LABORATORY [facility] Absolute Neutrophils 8.79(H) 1.80 - 7.70 K/uL 11/23/2023 8:48 AM EDT LABORATORY GL Absolute Lymphocytes 1.73 1.00 - 4.80 K/ul 11/23/2023 8:48 AM EDT LABORATORY GL Absolute Monocytes 0.81 0.00 - 1.10 K/uL 11/23/2023 8:48 AM EDT LABORATORY GLH Absolute Eosinophils 0.44 0.00 - 0.70 K/uL 11/23/2023 8:48 AM EDT LABORATORY GLH Absolute Basophils 0.05 0.00 - 0.20 K/uL 11/23/2023 8:48 AM EDT LABORATORY GLH Absolute Immature Granulocytes 0.20 0.00 - 0.20 K/uL 11/23/2023 8:48 AM EDT LABORATORY [facility] Blood Venous blood specimen / Unknown Venipuncture / Unknown 11/23/2023 7:34 AM EDT 11/23/2023 8:36 AM EDT Min Min Pearl THAKUR LAB BLOOD ORDERABLES LABORATORY [address] [address] * (ABNORMAL) CBC (11/23/2023 7:34 AM EDT) WBC 12.02(H) 4.00 - 10.80 K/uL 11/23/2023 8:48 AM EDT LABORATORY GL RBC 2.85 3.85 - 5.15 M/uL 11/23/2023 8:48 AM EDT LABORATORY GL HGB 8.1(L) 12.0 - 15.3 g/dL 11/23/2023 8:48 AM EDT LABORATORY GL HCT 25.0(L) 36.0 - 45.2 % 11/23/2023 8:48 AM EDT LABORATORY GL MCV 87.7 81.5 - 97.5 fL 11/23/2023 8:48 AM EDT LABORATORY GL MCH 28.4 27.0 - 34.0 pg 11/23/2023 8:48 AM EDT LABORATORY [facility] MCHC 32.4 32.0 - 36.0 g/dL 11/23/2023 8:48 AM EDT LABORATORY [facility] RDW 14.6 11.5 - 15.5 % 11/23/2023 8:48 AM EDT LABORATORY [facility] PLT 459(H) 140 - 400 K/uL 11/23/2023 8:48 AM EDT LABORATORY [facility] MPV 10.4 6.6 - 11.1 fL 11/23/2023 8:48 AM EDT LABORATORY [facility] nRBCs 0 <=0 /100 WBCs 11/23/2023 8:48 AM EDT LABORATORY [facility] Blood Venous blood specimen / Unknown Venipuncture / Unknown 11/23/2023 7:34 AM EDT 11/23/2023 8:36 AM EDT Min Min Pearl THAKUR LAB BLOOD ORDERABLES LABORATORY [facility] [address] [place] [address] * (ABNORMAL) BASIC METABOLIC PANEL (11/23/2023 7:34 AM EDT) BUN 107(H) 6 - 20 mg/dL 11/23/2023 9:23 AM EDT LABORATORY GL CREATININE 2.6(H) 0.5 - 1.0 mg/dL 11/23/2023 9:23 AM EDT LABORATORY GL EGFR 20(L) >=60 mL/min 11/23/2023 9:23 AM EDT LABORATORY GL Comment:eGFR is calculated b ased on the CKD-EPI 2020 equation. SODIUM 129(L) 135 - 146 mmol/L 11/23/2023 9:23 AM EDT LABORATORY GL POTASSIUM 3.4(L) 3.5 - 5.1 mmol/L 11/23/2023 9:23 AM EDT LABORATORY GL CHLORIDE 90(L) 98 - 107 mmol/L 11/23/2023 9:23 AM EDT LABORATORY GLH CO2 25 22 - 32 mmol/L 11/23/2023 9:23 AM EDT LABORATORY GL ANION GAP 14 7 - 15 mmol/L 11/23/2023 9:23 AM EDT LABORATORY GL GLUCOSE 127(H) 70 - 120 mg/dL 11/23/2023 9:23 AM EDT LABORATORY [facility] CALCIUM 8.7 8.4 - 10.2 mg/dL 11/23/2023 9:23 AM EDT LABORATORY [facility] Blood Venous blood specimen / Unknown Venipuncture / Unknown 11/23/2023 7:34 AM EDT 11/23/2023 8:37 AM EDT Min Min Pearl THAKUR LAB BLOOD ORDERABLES Performing Organization Address [facility] Co de Phone Number LABORATORY [address] [address] * (ABNORMAL) CRP (INFLAMMATORY MARKER) (11/23/2023 7:34 AM EDT) [facility] CRP (Inflammatory Marker) 110(H) <=5 mg/L 11/23/2023 9:23 AM EDT LABORATORY [facility] Blood Venous blood specimen / Unknown Venipuncture / Unknown 11/23/2023 7:34 AM EDT 11/23/2023 8:37 AM EDT Rickie Jara MD LAB BLOOD ORDERABLES Performing Organization Address [facility] de Phone Number LABORATORY [address] [address] * (ABNORMAL) GLUCOSE METER, POINT OF CARE (11/22/2023 9:02 PM EDT) [facility] GLUCOSE - POCT 160(H) 70 - 120 mg/dL 11/22/2023 9:14 PM EDT [facility] Blood Whole blood specimen / Unknown 11/22/2023 9:02 PM EDT 11/22/2023 9:14 PM EDT Min Min Pearl THAKUR LAB POINT OF CARE TE ST DOCKED DEVICE UNSOLICITED RESULTS Performing Organization Address [facility] Co de Phone Number [facility] [address] [place] [phone] * (ABNORMAL) GLUCOSE METER, POINT OF CARE (11/22/2023 4:25 PM EDT) GLUCOSE - POCT 160(H) 70 - 120 mg/dL 11/22/2023 4:31 PM EDT [facility] Blood Whole blood specimen / Unknown 11/22/2023 4:25 PM EDT 11/22/2023 4:31 PM EDT Min Min Pearl THAKUR LAB POINT OF CARE TE ST DOCKED DEVICE UNSOLICITED RESULTS [facility] [address] [place] [address] * (ABNORMAL) GLUCOSE METER, POINT OF CARE (11/22/2023 12:02 PM EDT) GLUCOSE - POCT 206(H) 70 - 120 mg/dL 11/22/2023 1:30 PM EDT [facility] Blood Whole blood specimen / Unknown 11/22/2023 12:02 PM EDT 11/22/2023 1:30 PM EDT Min Min Pearl THAKUR LAB POINT OF CARE TE ST DOCKED DEVICE UNSOLICITED RESULTS Performing Organization Address [facility] Co de Phone Number [facility] [address] [place] [address] * (ABNORMAL) GLUCOSE METER, POINT OF CARE (11/22/2023 7:40 AM EDT) GLUCOSE - POCT 132(H) 70 - 120 mg/dL 11/22/2023 8:07 AM EDT [facility] Blood Whole blood specimen / Unknown 11/22/2023 7:40 AM EDT 11/22/2023 8:07 AM EDT Min Min Pearl THAKUR LAB POINT OF CARE TE ST DOCKED DEVICE UNSOLICITED RESULTS Performing Organization Address City/[facility]/ZIP Co de Phone Number [facility] [address] [facility] [address] * (ABNORMAL) DIFFERENTIAL, AUTOMATED (11/22/2023 6:36 AM EDT) WBC 12.34(H) 4.00 - 10.80 K/uL 11/22/2023 7:11 AM EDT LABORATORY GL Neutrophils % 75.5(H) 40.0 - 75.0 % 11/22/2023 7:11 AM EDT LABORATORY GL Lymphocytes % 12.0(L) 18.0 - 42.0 % 11/22/2023 7:11 AM EDT LABORATORY GLH Monocytes % 7.1 1.0 - 11.0 % 11/22/2023 7:11 AM EDT LABORATORY GLH Eosinophils % 3.7 0.0 - 6.0 % 11/22/2023 7:11 AM EDT LABORATORY GL Basophils % 0.2 0.0 - 2.0 % 11/22/2023 7:11 AM EDT LABORATORY GL Immature Granulocytes % 1.5 0.0 - 2.0 % 11/22/2023 7:11 AM EDT LABORATORY [facility] Absolute Neutrophils 9.31(H) 1.80 - 7.70 K/uL 11/22/2023 7:11 AM EDT LABORATORY [facility] Absolute Lymphocytes 1.48 1.00 - 4.80 K/ul 11/22/2023 7:11 AM EDT LABORATORY GL Absolute Monocytes 0.87 0.00 - 1.10 K/uL 11/22/2023 7:11 AM EDT LABORATORY GL Absolute Eosinophils 0.46 0.00 - 0.70 K/uL 11/22/2023 7:11 AM EDT LABORATORY GL Absolute Basophils 0.03 0.00 - 0.20 K/uL 11/22/2023 7:11 AM EDT LABORATORY GL Absolute Immature Granulocytes 0.19 0.00 - 0.20 K/uL 11/22/2023 7:11 AM EDT LABORATORY [facility] Blood Venous blood specimen / Unknown Venipuncture / Unknown 11/22/2023 6:36 AM EDT 11/22/2023 7:06 AM EDT Min Min Pearl THAKUR LAB BLOOD ORDERABLES LABORATORY [address] [address] * (ABNORMAL) CBC (11/22/2023 6:36 AM EDT) WBC 12.34(H) 4.00 - 10.80 K/uL 11/22/2023 7:11 AM EDT LABORATORY [facility] RBC 2.79 3.85 - 5.15 M/uL 11/22/2023 7:11 AM EDT LABORATORY [facility] HGB 7.9(L) 12.0 - 15.3 g/dL 11/22/2023 7:11 AM EDT LABORATORY [facility] HCT 24.2(L) 36.0 - 45.2 % 11/22/2023 7:11 AM EDT LABORATORY [facility] MCV 86.7 81.5 - 97.5 fL 11/22/2023 7:11 AM EDT LABORATORY [facility] MCH 28.3 27.0 - 34.0 pg 11/22/2023 7:11 AM EDT LABORATORY [facility] MCHC 32.6 32.0 - 36.0 g/dL 11/22/2023 7:11 AM EDT LABORATORY [facility] RDW 14.4 11.5 - 15.5 % 11/22/2023 7:11 AM EDT LABORATORY [facility] PLT 433(H) 140 - 400 K/uL 11/22/2023 7:11 AM EDT LABORATORY [facility] MPV 10.2 6.6 - 11.1 fL 11/22/2023 7:11 AM EDT LABORATORY [facility] nRBCs 0 <=0 /100 WBCs 11/22/2023 7:11 AM EDT LABORATORY [facility] Blood Venous blood specimen / Unknown Venipuncture / Unknown 11/22/2023 6:36 AM EDT 11/22/2023 7:06 AM EDT Min Min Pearl THAKUR LAB BLOOD ORDERABLES LABORATORY [address] [place] [address] * (ABNORMAL) BASIC METABOLIC PANEL (11/22/2023 6:36 AM EDT) BUN 108(H) 6 - 20 mg/dL 11/22/2023 7:30 AM EDT LABORATORY GLH CREATININE 2.7(H) 0.5 - 1.0 mg/dL 11/22/2023 7:30 AM EDT LABORATORY GLH EGFR 20(L) >=60 mL/min 11/22/2023 7:30 AM EDT LABORATORY GLH Comment:eGFR is calculated b ased on the CKD-EPI 2020 equation. SODIUM 131(L) 135 - 146 mmol/L 11/22/2023 7:30 AM EDT LABORATORY GLH POTASSIUM 3.7 3.5 - 5.1 mmol/L 11/22/2023 7:30 AM EDT LABORATORY GL[facility] CHLORIDE 91(L) 98 - 107 mmol/L 11/22/2023 7:30 AM EDT LABORATORY GLH CO2 26 22 - 32 mmol/L 11/22/2023 7:30 AM EDT LABORATORY GLH ANION GAP 14 7 - 15 mmol/L 11/22/2023 7:30 AM EDT LABORATORY GL[facility] GLUCOSE 148(H) 70 - 120 mg/dL 11/22/2023 7:30 AM EDT LABORATORY GL[facility] CALCIUM 8.3(L) 8.4 - 10.2 mg/dL 11/22/2023 7:30 AM EDT LABORATORY GLH Blood Venous blood specimen / Unknown Venipuncture / Unknown 11/22/2023 6:36 AM EDT 11/22/2023 7:06 AM EDT Min Min Pearl THAKUR LAB BLOOD ORDERABLES LABORATORY [address] [address] * (ABNORMAL) CRP (INFLAMMATORY MARKER) (11/22/2023 6:36 AM EDT) Pathologist [facility] [place] CRP (Inflammatory Marker) 116(H) <=5 mg/L 11/22/2023 7:30 AM EDT LABORATORY GL Blood Venous blood specimen / Unknown Venipuncture / Unknown 11/22/2023 6:36 AM EDT 11/22/2023 7:06 AM EDT Rickie Jara MD LAB BLOOD ORDERABLES Performing Organization Address [facility] Co de Phone Number LABORATORY [facility] [address] [place], [place] [id number] * (ABNORMAL) GLUCOSE METER, POINT OF CARE (11/21/2023 9:42 PM EDT) GLUCOSE - POCT 209(H) 70 - 120 mg/dL 11/22/2023 1:34 AM EDT [facility] Blood Whole blood specimen / Unknown 11/21/2023 9:42 PM EDT 11/22/2023 1:34 AM EDT Min Min Pearl THAKUR LAB POINT OF CARE TE ST DOCKED DEVICE UNSOLICITED RESULTS Performing Organization Address [facility] de Phone Number [facility] [address] [place] [address] * EKG (11/21/2023 8:08 PM EDT) 11/21/2023 8:08 PM EDT Narrative Procedure Note Janusz Harkins DO - 11/21/2023 8:08 PM EDT REASON FOR STUDY: Screening for cardiovascular condition CONCLUSIONS: Wide QRS rhythm - possible junctional rhythm Left axis deviation Right bundle branch block Abnormal ECG When compared with ECG of 18-Nov-2023 12:30, No significant change Ventricular Rate: 63 QRS Duration: 160 QT/QTc: 510/521 ms P-R-T Ewen: 0 : -63 : -6 degrees Deng Ness DO EKG Performing Organization Address [facility] Co de Phone Number [facility] * (ABNORMAL) PHOSPHORUS (11/21/2023 8:03 PM EDT) Phosphorus 5.5(H) 2.5 - 4.8 mg/dL 11/21/2023 8:38 PM EDT LABORATORY [facility] Blood Venous blood specimen / Unknown Venipuncture / Unknown 11/21/2023 8:03 PM EDT 11/21/2023 8:16 PM EDT Judith FLORES LAB BLOOD ORDERAB LES Performing Organization Address City/[facility]/ZIP Co de Phone Number LABORATORY [address] [address] * MAGNESIUM (11/21/2023 8:03 PM EDT) [facility] Magnesium 1.7 1.5 - 2.6 mg/dL 11/21/2023 8:38 PM EDT LABORATORY [facility] Blood Venous blood specimen / Unknown Venipuncture / Unknown 11/21/2023 8:03 PM EDT 11/21/2023 8:16 PM EDT Judith FLORES LAB BLOOD ORDERAB LES Performing Organization Address [facility] Co de Phone Number LABORATORY [address] [address] * (ABNORMAL) TROPONIN T, HIGH SENSITIVITY (11/21/2023 8:03 PM EDT) [facility] Troponin T, High Sensitivity 217(HH) <=14 ng/L 11/21/2023 9:01 PM EDT LABORATORY [facility] Blood Venous blood specimen / Unknown Venipuncture / Unknown 11/21/2023 8:03 PM EDT 11/21/2023 8:16 PM EDT Judith FLORES LAB BLOOD ORDERAB LES Performing Organization Address City/[facility]/ZIP Co de Phone Number LABORATORY [address] [address] * (ABNORMAL) GLUCOSE METER, POINT OF CARE (11/21/2023 4:12 PM EDT) [facility] GLUCOSE - POCT 197(H) 70 - 120 mg/dL 11/21/2023 4:17 PM EDT [facility] Blood Whole blood specimen / Unknown 11/21/2023 4:12 PM EDT 11/21/2023 4:17 PM EDT Min Min Pearl THAKUR LAB POINT OF CARE TE ST DOCKED DEVICE UNSOLICITED RESULTS [facility] [address] [place] [address] * VASC DUPLEX VENOUS LE BILAT (11/21/2023 1:08 PM EDT) Anatomical Region Laterality Modality Lower Extremity, Vascular Ultras ound Impressions 11/21/2023 1:35 PM EDT : Exam limited by hard noncompressible areas on the skin that are painful with compression. Right lower extremity with no evidence of acute deep venous thrombosis in the visualized aspects. Left lower extremity with no evidence of acute deep venous thrombosis in the visualized aspects. Narrative 11/21/2023 1:35 PM EDT VASCULAR LAB RESULTS DATE OF EXAM: 11/21/23 PRESENTING CONDITIONS: Localized swelling, mass and lump, lower limb bilateral Immediately before proceeding with the vascular lab procedure reported below, the identity of the patient, the correct exam and the correct procedural site were verified. PHYSICIAN REPORT: Lower Extremity Venous Duplex Examination Color flow Doppler, spectral analysis, and transducer compression techniques were applied during this ultrasound image examination. RIGHT LOWER EXTREMITY On duplex examination, the right common femoral vein, the sapheno-femoral junction, the femoral vein in the thigh and popliteal vein are all free of internal echoes and demonstrate normal transducer compressibility during ba scale imaging and normal respiratory and augmentation response during Doppler interrogation. The posterior tibial veins and peroneal veins demonstrate no evidence of thrombosis. LEFT LOWER EXTREMITY On duplex examination, the left common femoral vein, the sapheno-femoral junction, the femoral vein in the thigh, and popliteal vein are all free of internal echoes and demonstrate normal transducer compressibility during ba scale imaging and normal respiratory and augmentation response during Doppler interrogation. The posterior tibial veins and peroneal veins demonstrate no evidence of thrombosis. Rickie Jara MD RAD VASCULAR * (ABNORMAL) GLUCOSE METER, POINT OF CARE (11/21/2023 11:20 AM EDT) GLUCOSE - POCT 182(H) 70 - 120 mg/dL 11/21/2023 11:31 AM EDT [facility] Blood Whole blood specimen / Unknown 11/21/2023 11:20 AM EDT 11/21/2023 11:31 AM EDT Min Min Pearl THAKUR LAB POINT OF CARE TE ST DOCKED DEVICE UNSOLICITED RESULTS Performing Organization Address [facility] de Phone Number [facility] [address] [place] [address] * (ABNORMAL) GLUCOSE METER, POINT OF CARE (11/21/2023 7:52 AM EDT) GLUCOSE - POCT 161(H) 70 - 120 mg/dL 11/21/2023 8:18 AM EDT [facility] Blood Whole blood specimen / Unknown 11/21/2023 7:52 AM EDT 11/21/2023 8:18 AM EDT Min Min Pearl THAKUR LAB POINT OF CARE TE ST DOCKED DEVICE UNSOLICITED RESULTS Performing Organization Address [facility] Phone Number [facility] [address] [place] [address] * (ABNORMAL) PROCALCITONIN (11/21/2023 6:59 AM EDT) Pathologist [facility] [place] Procalcitonin 0.16(H) <0.10 ng/mL 11/21/2023 12:51 PM EDT LABORATORY [facility] Blood Venous blood specimen / Unknown Venipuncture / Unknown 11/21/2023 6:59 AM EDT 11/21/2023 7:25 AM EDT Narrative LABORATORY [facility] - 11/21/2023 12:51 PM EDT Less than 0.5 ng/mL: Low risk for progression to sepsis. Review patients condition for localized infections. 0.5 to 2.0 ng/mL: Intermediate risk for progresion to sepsis. Review underlying conditions. Recommend repeat PCT after 6 hours has elapsed. Greater than 2.0 ng/mL: high risk for progression to sepsis unless other causes are known. Min Min Pearl THAKUR LAB BLOOD ORDERABLES Performing Organization Address [facility]/ZIP Co de Phone Number LABORATORY [facility] [address] [place] [address] * (ABNORMAL) BASIC METABOLIC PANEL (11/21/2023 6:59 AM EDT) BUN 109(H) 6 - 20 mg/dL 11/21/2023 8:01 AM EDT LABORATORY GL CREATININE 2.6(H) 0.5 - 1.0 mg/dL 11/21/2023 8:01 AM EDT LABORATORY GL EGFR 20(L) >=60 mL/min 11/21/2023 8:01 AM EDT LABORATORY GL Comment:eGFR is calculated b ased on the CKD-EPI 2020 equation. SODIUM 130(L) 135 - 146 mmol/L 11/21/2023 8:01 AM EDT LABORATORY GL POTASSIUM 3.7 3.5 - 5.1 mmol/L 11/21/2023 8:01 AM EDT LABORATORY GL CHLORIDE 90(L) 98 - 107 mmol/L 11/21/2023 8:01 AM EDT LABORATORY GL CO2 27 22 - 32 mmol/L 11/21/2023 8:01 AM EDT LABORATORY GL ANION GAP 13 7 - 15 mmol/L 11/21/2023 8:01 AM EDT LABORATORY [facility] GLUCOSE 181(H) 70 - 120 mg/dL 11/21/2023 8:01 AM EDT LABORATORY GL CALCIUM 8.2(L) 8.4 - 10.2 mg/dL 11/21/2023 8:01 AM EDT LABORATORY [facility] Blood Venous blood specimen / Unknown Venipuncture / Unknown 11/21/2023 6:59 AM EDT 11/21/2023 7:25 AM EDT Rickie Jara MD LAB BLOOD ORDERABLES LABORATORY [facility] [address] [facility] [place] [address] * (ABNORMAL) CBC (11/21/2023 6:59 AM EDT) WBC 11.93(H) 4.00 - 10.80 K/uL 11/21/2023 7:41 AM EDT LABORATORY [facility] RBC 2.70 3.85 - 5.15 M/uL 11/21/2023 7:41 AM EDT LABORATORY GL HGB 7.6(L) 12.0 - 15.3 g/dL 11/21/2023 7:41 AM EDT LABORATORY GL HCT 23.6(L) 36.0 - 45.2 % 11/21/2023 7:41 AM EDT LABORATORY GL MCV 87.4 81.5 - 97.5 fL 11/21/2023 7:41 AM EDT LABORATORY GL MCH 28.1 27.0 - 34.0 pg 11/21/2023 7:41 AM EDT LABORATORY GL MCHC 32.2 32.0 - 36.0 g/dL 11/21/2023 7:41 AM EDT LABORATORY [facility] RDW 14.5 11.5 - 15.5 % 11/21/2023 7:41 AM EDT LABORATORY [facility] PLT 437(H) 140 - 400 K/uL 11/21/2023 7:41 AM EDT LABORATORY [facility] MPV 10.3 6.6 - 11.1 fL 11/21/2023 7:41 AM EDT LABORATORY GL nRBCs 0 <=0 /100 WBCs 11/21/2023 7:41 AM EDT LABORATORY [facility] Blood Venous blood specimen / Unknown Venipuncture / Unknown 11/21/2023 6:59 AM EDT 11/21/2023 7:24 AM EDT Rickie Jara MD LAB BLOOD ORDERABLES LABORATORY [facility] [address] [place] [address] * (ABNORMAL) CRP (INFLAMMATORY MARKER) (11/21/2023 6:59 AM EDT) CRP (Inflammatory Marker) 120(H) <=5 mg/L 11/21/2023 8:01 AM EDT LABORATORY GL Blood Venous blood specimen / Unknown Venipuncture / Unknown 11/21/2023 6:59 AM EDT 11/21/2023 7:25 AM EDT Rickie Jara MD LAB BLOOD ORDERABLES Performing Organization Address City/[facility]/ZIP Co de Phone Number LABORATORY [address] [address] * (ABNORMAL) GLUCOSE METER, POINT OF CARE (11/20/2023 9:24 PM EDT) GLUCOSE - POCT 181(H) 70 - 120 mg/dL 11/21/2023 12:15 AM EDT [facility] Blood Whole blood specimen / Unknown 11/20/2023 9:24 PM EDT 11/21/2023 12:15 AM EDT Rickie Jara MD LAB POINT OF CARE TE ST DOCKED DEVICE UNSOLICITED RESULTS Performing Organization Address [facility] Co de Phone Number [facility] [address] [place] [phone] * (ABNORMAL) GLUCOSE METER, POINT OF CARE (11/20/2023 4:48 PM EDT) GLUCOSE - POCT 223(H) 70 - 120 mg/dL 11/20/2023 4:53 PM EDT [facility] Blood Whole blood specimen / Unknown 11/20/2023 4:48 PM EDT 11/20/2023 4:53 PM EDT Rickie Jara MD LAB POINT OF CARE TE ST DOCKED DEVICE UNSOLICITED RESULTS Performing Organization Address City/[facility]/ZIP Co de Phone Number [facility] [address] [place] [phone] * (ABNORMAL) GLUCOSE METER, POINT OF CARE (11/20/2023 11:26 AM EDT) GLUCOSE - POCT 222(H) 70 - 120 mg/dL 11/20/2023 11:44 AM EDT [facility] Blood Whole blood specimen / Unknown 11/20/2023 11:26 AM EDT 11/20/2023 11:44 AM EDT Rickie Jara MD LAB POINT OF CARE TE ST DOCKED DEVICE UNSOLICITED RESULTS Performing Organization Address City/[facility]/ZIP Co de Phone Number [facility] [address] [place] [phone] * (ABNORMAL) CRP (INFLAMMATORY MARKER) (11/20/2023 8:13 AM EDT) CRP (Inflammatory Marker) 127(H) <=5 mg/L 11/20/2023 1:39 PM EDT LABORATORY [facility] Blood Venous blood specimen / Unknown Venipuncture / Unknown 11/20/2023 8:13 AM EDT 11/20/2023 8:17 AM EDT Rickie Jara MD LAB BLOOD ORDERABLES Performing Organization Address [facility] Co de Phone Number LABORATORY [address] [address] * (ABNORMAL) PHOSPHORUS (11/20/2023 8:13 AM EDT) Phosphorus 6.4(H) 2.5 - 4.8 mg/dL 11/20/2023 8:50 AM EDT LABORATORY [facility] Blood Venous blood specimen / Unknown Venipuncture / Unknown 11/20/2023 8:13 AM EDT 11/20/2023 8:17 AM EDT Judith FLORES LAB BLOOD ORDERAB LES Performing Organization Address City/[facility]/ZIP Co de Phone Number LABORATORY [address] [address] * MAGNESIUM (11/20/2023 8:13 AM EDT) Magnesium 1.8 1.5 - 2.6 mg/dL 11/20/2023 8:50 AM EDT LABORATORY [facility] Blood Venous blood specimen / Unknown Venipuncture / Unknown 11/20/2023 8:13 AM EDT 11/20/2023 8:17 AM EDT Judith FLORES LAB BLOOD ORDERAB LES LABORATORY [address] [address] * (ABNORMAL) BASIC METABOLIC PANEL (11/20/2023 8:13 AM EDT) BUN 111(H) 6 - 20 mg/dL 11/20/2023 8:50 AM EDT LABORATORY GL[facility] CREATININE 2.7(H) 0.5 - 1.0 mg/dL 11/20/2023 8:50 AM EDT LABORATORY GL[facility] EGFR 19(L) >=60 mL/min 11/20/2023 8:50 AM EDT LABORATORY GL[facility] Comment:eGFR is calculated b ased on the CKD-EPI 2020 equation. SODIUM 130(L) 135 - 146 mmol/L 11/20/2023 8:50 AM EDT LABORATORY GL[facility] POTASSIUM 4.0 3.5 - 5.1 mmol/L 11/20/2023 8:50 AM EDT LABORATORY GL[facility] CHLORIDE 91(L) 98 - 107 mmol/L 11/20/2023 8:50 AM EDT LABORATORY GL[facility] CO2 25 22 - 32 mmol/L 11/20/2023 8:50 AM EDT LABORATORY GL[facility] ANION GAP 14 7 - 15 mmol/L 11/20/2023 8:50 AM EDT LABORATORY GL[facility] GLUCOSE 150(H) 70 - 120 mg/dL 11/20/2023 8:50 AM EDT LABORATORY GL[facility] CALCIUM 8.5 8.4 - 10.2 mg/dL 11/20/2023 8:50 AM EDT LABORATORY GL[facility] Blood Venous blood specimen / Unknown Venipuncture / Unknown 11/20/2023 8:13 AM EDT 11/20/2023 8:17 AM EDT Rickie Jara MD LAB BLOOD ORDERABLES LABORATORY [address] [address] * (ABNORMAL) CBC (11/20/2023 8:13 AM EDT) WBC 13.03(H) 4.00 - 10.80 K/uL 11/20/2023 8:24 AM EDT LABORATORY [facility] RBC 3.09 3.85 - 5.15 M/uL 11/20/2023 8:24 AM EDT LABORATORY [facility] HGB 8.7(L) 12.0 - 15.3 g/dL 11/20/2023 8:24 AM EDT LABORATORY [facility] HCT 27.5(L) 36.0 - 45.2 % 11/20/2023 8:24 AM EDT LABORATORY [facility] MCV 89.0 81.5 - 97.5 fL 11/20/2023 8:24 AM EDT LABORATORY [facility] MCH 28.2 27.0 - 34.0 pg 11/20/2023 8:24 AM EDT LABORATORY [facility] MCHC 31.6 32.0 - 36.0 g/dL 11/20/2023 8:24 AM EDT LABORATORY [facility] RDW 14.6 11.5 - 15.5 % 11/20/2023 8:24 AM EDT LABORATORY [facility] PLT 437(H) 140 - 400 K/uL 11/20/2023 8:24 AM EDT LABORATORY [facility] MPV 9.9 6.6 - 11.1 fL 11/20/2023 8:24 AM EDT LABORATORY [facility] nRBCs 0 <=0 /100 WBCs 11/20/2023 8:24 AM EDT LABORATORY [facility] Blood Venous blood specimen / Unknown Venipuncture / Unknown 11/20/2023 8:13 AM EDT 11/20/2023 8:17 AM EDT Rickie Jara MD LAB BLOOD ORDERABLES LABORATORY [facility] [address] [place] [address] * (ABNORMAL) GLUCOSE METER, POINT OF CARE (11/20/2023 7:26 AM EDT) [facility] GLUCOSE - POCT 147(H) 70 - 120 mg/dL 11/20/2023 7:41 AM EDT [facility] Blood Whole blood specimen / Unknown 11/20/2023 7:26 AM EDT 11/20/2023 7:41 AM EDT Rickie Jara MD LAB POINT OF CARE TE ST DOCKED DEVICE UNSOLICITED RESULTS Performing Organization Address [facility] Co de Phone Number [facility] [address] [place] [address] * (ABNORMAL) GLUCOSE METER, POINT OF CARE (11/19/2023 9:09 PM EDT) GLUCOSE - POCT 125(H) 70 - 120 mg/dL 11/19/2023 9:21 PM EDT [facility] Blood Whole blood specimen / Unknown 11/19/2023 9:09 PM EDT 11/19/2023 9:21 PM EDT Rickie Jara MD LAB POINT OF CARE TE ST DOCKED DEVICE UNSOLICITED RESULTS Performing Organization Address [facility] Co de Phone Number [facility] [address] [place] [address] * (ABNORMAL) GLUCOSE METER, POINT OF CARE (11/19/2023 4:45 PM EDT) GLUCOSE - POCT 159(H) 70 - 120 mg/dL 11/19/2023 4:49 PM EDT [facility] Blood Whole blood specimen / Unknown 11/19/2023 4:45 PM EDT 11/19/2023 4:49 PM EDT Rickie Jara MD LAB POINT OF CARE TE ST DOCKED DEVICE UNSOLICITED RESULTS Performing Organization Address [facility] Co de Phone Number [facility] [address] [facility] [place] [address] * (ABNORMAL) GLUCOSE METER, POINT OF CARE (11/19/2023 11:30 AM EDT) GLUCOSE - POCT 177(H) 70 - 120 mg/dL 11/19/2023 11:32 AM EDT [facility] Blood Whole blood specimen / Unknown 11/19/2023 11:30 AM EDT 11/19/2023 11:32 AM EDT Rickie Jara MD LAB POINT OF CARE TE ST DOCKED DEVICE UNSOLICITED RESULTS Performing Organization Address [facility] Co de Phone Number [facility] [address] [place] [address] * ECHO, COMPLETE (2D), TRANS-THORACIC (11/19/2023 11:14 AM EDT) Pathologist [facility] [place] LEFT VENTRICULAR EJECTION FRACTION 55 % [facility] CARDIOLOGY 11/19/2023 10:4 3 AM EDT Bernabe Gallagher MD ECHOCARDIOLOGY Performing Organization Address [facility] Co de Phone Number [facility] * (ABNORMAL) GLUCOSE METER, POINT OF CARE (11/19/2023 7:26 AM EDT) Pathologist [facility] [place] GLUCOSE - POCT 171(H) 70 - 120 mg/dL 11/19/2023 12:00 PM EDT [facility] Blood Whole blood specimen / Unknown 11/19/2023 7:26 AM EDT 11/19/2023 12:00 PM EDT Rickie Jara MD LAB POINT OF CARE TE ST DOCKED DEVICE UNSOLICITED RESULTS Performing Organization Address [facility] Co de Phone Number [facility] [address] [place] [address] * (ABNORMAL) DIFFERENTIAL, AUTOMATED (11/19/2023 6:57 AM EDT) WBC 11.84(H) 4.00 - 10.80 K/uL 11/19/2023 7:25 AM EDT LABORATORY GL[facility] Neutrophils % 75.4(H) 40.0 - 75.0 % 11/19/2023 7:25 AM EDT LABORATORY GL[facility] Lymphocytes % 11.4(L) 18.0 - 42.0 % 11/19/2023 7:25 AM EDT LABORATORY GL[facility] Monocytes % 8.4 1.0 - 11.0 % 11/19/2023 7:25 AM EDT LABORATORY GL[facility] Eosinophils % 3.0 0.0 - 6.0 % 11/19/2023 7:25 AM EDT LABORATORY GL[facility] Basophils % 0.3 0.0 - 2.0 % 11/19/2023 7:25 AM EDT LABORATORY GL Immature Granulocytes % 1.5 0.0 - 2.0 % 11/19/2023 7:25 AM EDT LABORATORY GL Absolute Neutrophils 8.92(H) 1.80 - 7.70 K/uL 11/19/2023 7:25 AM EDT LABORATORY GL Absolute Lymphocytes 1.35 1.00 - 4.80 K/ul 11/19/2023 7:25 AM EDT LABORATORY GL Absolute Monocytes 0.99 0.00 - 1.10 K/uL 11/19/2023 7:25 AM EDT LABORATORY GL Absolute Eosinophils 0.36 0.00 - 0.70 K/uL 11/19/2023 7:25 AM EDT LABORATORY GL Absolute Basophils 0.04 0.00 - 0.20 K/uL 11/19/2023 7:25 AM EDT LABORATORY GL Absolute Immature Granulocytes 0.18 0.00 - 0.20 K/uL 11/19/2023 7:25 AM EDT LABORATORY GL Blood Venous blood specimen / Unknown Venipuncture / Unknown 11/19/2023 6:57 AM EDT 11/19/2023 7:14 AM EDT Min Min Pearl THAKUR LAB BLOOD ORDERABLES LABORATORY [address] [address] * (ABNORMAL) CBC (11/19/2023 6:57 AM EDT) WBC 11.84(H) 4.00 - 10.80 K/uL 11/19/2023 7:25 AM EDT LABORATORY GL[facility] RBC 2.96 3.85 - 5.15 M/uL 11/19/2023 7:25 AM EDT LABORATORY GL HGB 8.3(L) 12.0 - 15.3 g/dL 11/19/2023 7:25 AM EDT LABORATORY [facility] HCT 26.1(L) 36.0 - 45.2 % 11/19/2023 7:25 AM EDT LABORATORY [facility] MCV 88.2 81.5 - 97.5 fL 11/19/2023 7:25 AM EDT LABORATORY [facility] MCH 28.0 27.0 - 34.0 pg 11/19/2023 7:25 AM EDT LABORATORY [facility] MCHC 31.8 32.0 - 36.0 g/dL 11/19/2023 7:25 AM EDT LABORATORY [facility] RDW 14.6 11.5 - 15.5 % 11/19/2023 7:25 AM EDT LABORATORY [facility] PLT 452(H) 140 - 400 K/uL 11/19/2023 7:25 AM EDT LABORATORY [facility] MPV 10.1 6.6 - 11.1 fL 11/19/2023 7:25 AM EDT LABORATORY [facility] nRBCs 0 <=0 /100 WBCs 11/19/2023 7:25 AM EDT LABORATORY [facility] Blood Venous blood specimen / Unknown Venipuncture / Unknown 11/19/2023 6:57 AM EDT 11/19/2023 7:14 AM EDT Min Min Pearl THAKUR LAB BLOOD ORDERABLES LABORATORY [facility] [address] [place] [address] * (ABNORMAL) BASIC METABOLIC PANEL (11/19/2023 6:57 AM EDT) BUN 122(H) 6 - 20 mg/dL 11/19/2023 8:01 AM EDT LABORATORY GL CREATININE 3.0(H) 0.5 - 1.0 mg/dL 11/19/2023 8:01 AM EDT LABORATORY [facility] EGFR 17(L) >=60 mL/min 11/19/2023 8:01 AM EDT LABORATORY [facility] Comment:eGFR is calculated b ased on the CKD-EPI 2020 equation. SODIUM 130(L) 135 - 146 mmol/L 11/19/2023 8:01 AM EDT LABORATORY GLH POTASSIUM 3.8 3.5 - 5.1 mmol/L 11/19/2023 8:01 AM EDT LABORATORY GL[facility] CHLORIDE 90(L) 98 - 107 mmol/L 11/19/2023 8:01 AM EDT LABORATORY GL[facility] CO2 27 22 - 32 mmol/L 11/19/2023 8:01 AM EDT LABORATORY GL[facility] ANION GAP 13 7 - 15 mmol/L 11/19/2023 8:01 AM EDT LABORATORY GL[facility] GLUCOSE 164(H) 70 - 120 mg/dL 11/19/2023 8:01 AM EDT LABORATORY GL[facility] CALCIUM 8.4 8.4 - 10.2 mg/dL 11/19/2023 8:01 AM EDT LABORATORY GLH Blood Venous blood specimen / Unknown Venipuncture / Unknown 11/19/2023 6:57 AM EDT 11/19/2023 7:14 AM EDT Rickie Jara MD LAB BLOOD ORDERABLES Performing Organization Address City/[facility]/ZIP Co de Phone Number LABORATORY [address] [address] * (ABNORMAL) HGB (11/19/2023 12:14 AM EDT) [facility] Signature HGB 8.2(L) 12.0 - 15.3 g/dL 11/19/2023 12:25 AM EDT LABORATORY GL Blood Venous blood specimen / Unknown Venipuncture / Unknown 11/19/2023 12:14 AM EDT 11/19/2023 12:23 AM EDT Rickie Jara MD LAB BLOOD ORDERABLES LABORATORY [address] [address] * (ABNORMAL) GLUCOSE METER, POINT OF CARE (11/18/2023 8:40 PM EDT) GLUCOSE - POCT 147(H) 70 - 120 mg/dL 11/19/2023 12:08 AM EDT [facility] Blood Whole blood specimen / Unknown 11/18/2023 8:40 PM EDT 11/19/2023 12:08 AM EDT Rickie Jara MD LAB POINT OF CARE TE ST DOCKED DEVICE UNSOLICITED RESULTS Performing Organization Address [facility] Co de Phone Number [facility] [address] [place] [address] * EXTRA LAVENDER TOP (11/18/2023 5:05 PM EDT) Blood Venous blood specimen / Unknown 11/18/2023 5:05 PM EDT 11/18/2023 11:00 PM EDT Rickie Jara MD LAB BLOOD ORDERABLES Performing Organization Address City/[facility]/ZIP Co de Phone Number LABORATORY [address] [address] * (ABNORMAL) TROPONIN T, HIGH SENSITIVITY (11/18/2023 5:05 PM EDT) Pathologist [facility] [place] Troponin T, High Sensitivity 212(HH) <=14 ng/L 11/18/2023 5:57 PM EDT LABORATORY [facility] Blood Venous blood specimen / Unknown Venipuncture / Unknown 11/18/2023 5:05 PM EDT 11/18/2023 5:17 PM EDT Rickie Jara MD LAB BLOOD ORDERABLES Performing Organization Address [facility] Co de Phone Number LABORATORY [address] [address] * (ABNORMAL) GLUCOSE METER, POINT OF CARE (11/18/2023 4:42 PM EDT) GLUCOSE - POCT 159(H) 70 - 120 mg/dL 11/18/2023 4:46 PM EDT [facility] Blood Whole blood specimen / Unknown 11/18/2023 4:42 PM EDT 11/18/2023 4:46 PM EDT Rickie Jara MD LAB POINT OF CARE TE ST DOCKED DEVICE UNSOLICITED RESULTS Performing Organization Address [facility] Co de Phone Number [facility] [address] [place] [phone] * (ABNORMAL) HGB (11/18/2023 3:27 PM EDT) HGB 8.0(L) 12.0 - 15.3 g/dL 11/18/2023 4:13 PM EDT LABORATORY [facility] Blood Venous blood specimen / Unknown Venipuncture / Unknown 11/18/2023 3:27 PM EDT 11/18/2023 4:02 PM EDT Rickie Jara MD LAB BLOOD ORDERABLES Performing Organization Address [facility] Co de Phone Number LABORATORY [address] [address] * (ABNORMAL) TROPONIN T, HIGH SENSITIVITY (11/18/2023 1:15 PM EDT) [facility] Troponin T, High Sensitivity 219(HH) <=14 ng/L 11/18/2023 2:18 PM EDT LABORATORY [facility] Blood Venous blood specimen / Unknown Venipuncture / Unknown 11/18/2023 1:15 PM EDT 11/18/2023 1:28 PM EDT Rickie Jara MD LAB BLOOD ORDERABLES Performing Organization Address [facility] Co de Phone Number LABORATORY [address] [address] * EKG (11/18/2023 12:30 PM EDT) 11/18/2023 12:3 0 PM EDT Narrative Procedure Note Janusz Harkins DO - 11/18/2023 12:30 PM EDT REASON FOR STUDY: Tele changes CONCLUSIONS: Probable Junctional rhythm Right bundle branch block Left anterior fascicular block Bifascicular block Abnormal ECG When compared with ECG of No significant change Ventricular Rate: 79 Atrial Rate: 79 RI Interval: 172 QRS Duration: 170 QT/QTc: 468/536 ms P-R-T Ewen: 69 : -79 : 11 degrees Deng Ness DO EKG Performing Organization Address [facility] Co de Phone Number [facility] * (ABNORMAL) GLUCOSE METER, POINT OF CARE (11/18/2023 11:21 AM EDT) [facility] GLUCOSE - POCT 165(H) 70 - 120 mg/dL 11/18/2023 11:34 AM EDT [facility] Blood Whole blood specimen / Unknown 11/18/2023 11:21 AM EDT 11/18/2023 11:34 AM EDT Rickie Jara MD LAB POINT OF CARE TE ST DOCKED DEVICE UNSOLICITED RESULTS Performing Organization Address [facility] de Phone Number [facility] [address] [place] [address] * (ABNORMAL) CRP (INFLAMMATORY MARKER) (11/18/2023 7:57 AM EDT) [facility] CRP (Inflammatory Marker) 176(H) <=5 mg/L 11/18/2023 2:30 PM EDT LABORATORY [facility] Blood Venous blood specimen / Unknown Venipuncture / Unknown 11/18/2023 7:57 AM EDT 11/18/2023 8:23 AM EDT Rickie Jara MD LAB BLOOD ORDERABLES Performing Organization Address City/[facility] Co de Phone Number LABORATORY GL [address] [place], [place] [id number] * (ABNORMAL) DIFFERENTIAL, AUTOMATED (11/18/2023 7:57 AM EDT) [facility] WBC 12.27(H) 4.00 - 10.80 K/uL 11/18/2023 8:29 AM EDT LABORATORY GL Neutrophils % 75.6(H) 40.0 - 75.0 % 11/18/2023 8:29 AM EDT LABORATORY GL Lymphocytes % 11.7(L) 18.0 - 42.0 % 11/18/2023 8:29 AM EDT LABORATORY GL Monocytes % 7.0 1.0 - 11.0 % 11/18/2023 8:29 AM EDT LABORATORY GL Eosinophils % 3.5 0.0 - 6.0 % 11/18/2023 8:29 AM EDT LABORATORY GL Basophils % 0.2 0.0 - 2.0 % 11/18/2023 8:29 AM EDT LABORATORY GL Immature Granulocytes % 2.0 0.0 - 2.0 % 11/18/2023 8:29 AM EDT LABORATORY GL Absolute Neutrophils 9.28(H) 1.80 - 7.70 K/uL 11/18/2023 8:29 AM EDT LABORATORY [facility] Absolute Lymphocytes 1.43 1.00 - 4.80 K/ul 11/18/2023 8:29 AM EDT LABORATORY [facility] Absolute Monocytes 0.86 0.00 - 1.10 K/uL 11/18/2023 8:29 AM EDT LABORATORY [facility] Absolute Eosinophils 0.43 0.00 - 0.70 K/uL 11/18/2023 8:29 AM EDT LABORATORY [facility] Absolute Basophils 0.03 0.00 - 0.20 K/uL 11/18/2023 8:29 AM EDT LABORATORY GL Absolute Immature Granulocytes 0.24(H) 0.00 - 0.20 K/uL 11/18/2023 8:29 AM EDT LABORATORY [facility] Blood Venous blood specimen / Unknown Venipuncture / Unknown 11/18/2023 7:57 AM EDT 11/18/2023 8:23 AM EDT Min Min Pearl THAKUR LAB BLOOD ORDERABLES LABORATORY [address] [address] * (ABNORMAL) CBC (11/18/2023 7:57 AM EDT) WBC 12.27(H) 4.00 - 10.80 K/uL 11/18/2023 8:29 AM EDT LABORATORY GL RBC 2.81 3.85 - 5.15 M/uL 11/18/2023 8:29 AM EDT LABORATORY [facility] HGB 8.0(L) 12.0 - 15.3 g/dL 11/18/2023 8:29 AM EDT LABORATORY GL HCT 24.5(L) 36.0 - 45.2 % 11/18/2023 8:29 AM EDT LABORATORY GL MCV 87.2 81.5 - 97.5 fL 11/18/2023 8:29 AM EDT LABORATORY GL MCH 28.5 27.0 - 34.0 pg 11/18/2023 8:29 AM EDT LABORATORY GL MCHC 32.7 32.0 - 36.0 g/dL 11/18/2023 8:29 AM EDT LABORATORY [facility] RDW 14.6 11.5 - 15.5 % 11/18/2023 8:29 AM EDT LABORATORY [facility] PLT 447(H) 140 - 400 K/uL 11/18/2023 8:29 AM EDT LABORATORY [facility] MPV 10.1 6.6 - 11.1 fL 11/18/2023 8:29 AM EDT LABORATORY [facility] nRBCs 0 <=0 /100 WBCs 11/18/2023 8:29 AM EDT LABORATORY [facility] Blood Venous blood specimen / Unknown Venipuncture / Unknown 11/18/2023 7:57 AM EDT 11/18/2023 8:23 AM EDT Min Min Pearl THAKUR LAB BLOOD ORDERABLES LABORATORY [address] [address] * (ABNORMAL) COMPREHENSIVE METABOLIC PANEL (11/18/2023 7:57 AM EDT) BUN 126(H) 6 - 20 mg/dL 11/18/2023 10:44 AM EDT LABORATORY GL CREATININE 3.2(H) 0.5 - 1.0 mg/dL 11/18/2023 10:44 AM EDT LABORATORY GL EGFR 16(L) >=60 mL/min 11/18/2023 10:44 AM EDT LABORATORY GL Comment:eGFR is calculated b ased on the CKD-EPI 2020 equation. SODIUM 131(L) 135 - 146 mmol/L 11/18/2023 10:44 AM EDT LABORATORY GLH POTASSIUM 3.9 3.5 - 5.1 mmol/L 11/18/2023 10:44 AM EDT LABORATORY GLH CHLORIDE 91(L) 98 - 107 mmol/L 11/18/2023 10:44 AM EDT LABORATORY GLH CO2 25 22 - 32 mmol/L 11/18/2023 10:44 AM EDT LABORATORY GLH ANION GAP 15 7 - 15 mmol/L 11/18/2023 10:44 AM EDT LABORATORY GL[facility] GLUCOSE 128(H) 70 - 120 mg/dL 11/18/2023 10:44 AM EDT LABORATORY GLH Albumin 2.1(L) 3.8 - 5.0 g/dL 11/18/2023 10:44 AM EDT LABORATORY GLH AST 18 10 - 35 U/L 11/18/2023 10:44 AM EDT LABORATORY GLH Alkaline Phosphatase 217(H) 35 - 130 U/L 11/18/2023 10:44 AM EDT LABORATORY GLH Bilirubin, Total 0.3 <=1.2 mg/dL 11/18/2023 10:44 AM EDT LABORATORY GL[facility] CALCIUM 8.4 8.4 - 10.2 mg/dL 11/18/2023 10:44 AM EDT LABORATORY GLH Protein 6.6 6.0 - 8.3 g/dL 11/18/2023 10:44 AM EDT LABORATORY GLH ALT 10 10 - 35 U/L 11/18/2023 10:44 AM EDT LABORATORY GLH Blood Venous blood specimen / Unknown Venipuncture / Unknown 11/18/2023 7:57 AM EDT 11/18/2023 8:23 AM EDT Renzo Diop MD LAB BLOOD ORDERABLES LABORATORY [address] [address] * VANCOMYCIN RANDOM (11/18/2023 7:57 AM EDT) Vancomycin Random 14.4 10.0 - 40.0 ug/mL 11/18/2023 10:07 AM EDT LABORATORY [facility] Blood Venous blood specimen / Unknown Venipuncture / Unknown 11/18/2023 7:57 AM EDT 11/18/2023 8:23 AM EDT Min Min Pearl THAKUR LAB BLOOD ORDERABLES Performing Organization Address City/[facility]/ZIP Co de Phone Number LABORATORY [address] [address] * (ABNORMAL) GLUCOSE METER, POINT OF CARE (11/18/2023 7:30 AM EDT) GLUCOSE - POCT 121(H) 70 - 120 mg/dL 11/18/2023 7:35 AM EDT [facility] Blood Whole blood specimen / Unknown 11/18/2023 7:30 AM EDT 11/18/2023 7:35 AM EDT Rickie Jara MD LAB POINT OF CARE TE ST DOCKED DEVICE UNSOLICITED RESULTS Performing Organization Address [facility] de Phone Number [facility] [address] [place] [phone] * (ABNORMAL) GLUCOSE METER, POINT OF CARE (11/17/2023 9:42 PM EDT) GLUCOSE - POCT 191(H) 70 - 120 mg/dL 11/18/2023 12:03 AM EDT [facility] Blood Whole blood specimen / Unknown 11/17/2023 9:42 PM EDT 11/18/2023 12:03 AM EDT Renzo Diop MD LAB POINT OF CARE TE ST DOCKED DEVICE UNSOLICITED RESULTS Performing Organization Address [facility] Co de Phone Number [facility] [address] [place] [phone] * GASTROINTESTINAL PATHOGEN PANEL CULTURE (11/17/2023 7:55 PM EDT) Culture Growth No Aeromonas species or Plesiomonas species isolated. 11/20/2023 9:47 AM EDT LABORATORY C Stool Stool specimen / Unknown Non-blood Collection / Unknown 11/17/2023 7:55 PM EDT 11/17/2023 7:57 PM EDT Renzo Diop MD LAB MICRO - GENERAL ORDERABLES LABORATORY [facility] [address] [place] [address] * GASTROINTESTINAL PATHOGEN PANEL PCR (11/17/2023 7:55 PM EDT) Pathologist [facility] [place] Campylobacter group by PCR Negative Negative 11/18/2023 6:04 PM EDT LABORATORY [facility] Salmonella species by PCR Negative Negative 11/18/2023 6:04 PM EDT LABORATORY [facility] Shigella species by PCR Negative Negative 11/18/2023 6:04 PM EDT LABORATORY [facility] Vibrio group by PCR Negative Negative 11/18/2023 6:04 PM EDT LABORATORY [facility] Yersinia enterocolitica by PCR Negative Negative 11/18/2023 6:04 PM EDT LABORATORY [facility] Shiga Toxin 1 Gene by PCR Negative Negative 11/18/2023 6:04 PM EDT LABORATORY [facility] Shiga Toxin 2 Gene by PCR Negative Negative 11/18/2023 6:04 PM EDT LABORATORY [facility] Norovirus by PCR Negative Negative 11/18/19 24 6:04 PM EDT LABORATORY [facility] Rotavirus by PCR Negative Negative 11/18/19 24 6:04 PM EDT LABORATORY [facility] Stool Stool specimen / Unknown Non-blood Collection / Unknown 11/17/2023 7:55 PM EDT 11/17/2023 7:57 PM EDT Renzo Diop MD LAB MICRO - GENERAL ORDERABLES LABORATORY [facility] [address] [place] [address] * (ABNORMAL) GLUCOSE METER, POINT OF CARE (11/17/2023 4:41 PM EDT) GLUCOSE - POCT 140(H) 70 - 120 mg/dL 11/17/2023 4:46 PM EDT [facility] Blood Whole blood specimen / Unknown 11/17/2023 4:41 PM EDT 11/17/2023 4:46 PM EDT Renzo Diop MD LAB POINT OF CARE TE ST DOCKED DEVICE UNSOLICITED RESULTS Performing Organization Address City/[facility]/ZIP Co de Phone Number [facility] [address] [place] [phone] * (ABNORMAL) HGB (11/17/2023 11:55 AM EDT) HGB 8.6(L) 12.0 - 15.3 g/dL 11/17/2023 12:05 PM EDT LABORATORY [facility] Blood Venous blood specimen / Unknown Venipuncture / Unknown 11/17/2023 11:55 AM EDT 11/17/2023 12:03 PM EDT Bernabe Gallagher MD LAB BLOOD ORDERABLES LABORATORY [address] [phone] * (ABNORMAL) GLUCOSE METER, POINT OF CARE (11/17/2023 11:19 AM EDT) GLUCOSE - POCT 168(H) 70 - 120 mg/dL 11/17/2023 11:25 AM EDT [facility] Blood Whole blood specimen / Unknown 11/17/2023 11:19 AM EDT 11/17/2023 11:24 AM EDT Renzo Diop MD LAB POINT OF CARE TE ST DOCKED DEVICE UNSOLICITED RESULTS Performing Organization Address City/[facility]/ZIP Co de Phone Number [facility] [address] [place] [phone] * (ABNORMAL) GLUCOSE METER, POINT OF CARE (11/17/2023 7:29 AM EDT) GLUCOSE - POCT 150(H) 70 - 120 mg/dL 11/17/2023 7:34 AM EDT [facility] Blood Whole blood specimen / Unknown 11/17/2023 7:29 AM EDT 11/17/2023 7:33 AM EDT Renzo Diop MD LAB POINT OF CARE TE ST DOCKED DEVICE UNSOLICITED RESULTS [facility] [address] [facility] [place] [address] * (ABNORMAL) DIFFERENTIAL, AUTOMATED (11/17/2023 5:59 AM EDT) WBC 13.81(H) 4.00 - 10.80 K/uL 11/17/2023 6:07 AM EDT LABORATORY GL Neutrophils % 79.7(H) 40.0 - 75.0 % 11/17/2023 6:07 AM EDT LABORATORY GL[facility] Lymphocytes % 9.8(L) 18.0 - 42.0 % 11/17/2023 6:07 AM EDT LABORATORY [facility] Monocytes % 6.5 1.0 - 11.0 % 11/17/2023 6:07 AM EDT LABORATORY [facility] Eosinophils % 2.3 0.0 - 6.0 % 11/17/2023 6:07 AM EDT LABORATORY [facility] Basophils % 0.3 0.0 - 2.0 % 11/17/2023 6:07 AM EDT LABORATORY [facility] Immature Granulocytes % 1.4 0.0 - 2.0 % 11/17/2023 6:07 AM EDT LABORATORY [facility] Absolute Neutrophils 11.00(H) 1.80 - 7.70 K/uL 11/17/2023 6:07 AM EDT LABORATORY [facility] Absolute Lymphocytes 1.36 1.00 - 4.80 K/ul 11/17/2023 6:07 AM EDT LABORATORY [facility] Absolute Monocytes 0.90 0.00 - 1.10 K/uL 11/17/2023 6:07 AM EDT LABORATORY [facility] Absolute Eosinophils 0.32 0.00 - 0.70 K/uL 11/17/2023 6:07 AM EDT LABORATORY [facility] Absolute Basophils 0.04 0.00 - 0.20 K/uL 11/17/2023 6:07 AM EDT LABORATORY [facility] Absolute Immature Granulocytes 0.19 0.00 - 0.20 K/uL 11/17/2023 6:07 AM EDT LABORATORY [facility] Blood Venous blood specimen / Unknown Venipuncture / Unknown 11/17/2023 5:59 AM EDT 11/17/2023 6:03 AM EDT Min Min Pearl THAKUR LAB BLOOD ORDERABLES LABORATORY [facility] [address] [place] [address] * (ABNORMAL) CBC (11/17/2023 5:59 AM EDT) WBC 13.81(H) 4.00 - 10.80 K/uL 11/17/2023 6:07 AM EDT LABORATORY [facility] RBC 2.93 3.85 - 5.15 M/uL 11/17/2023 6:07 AM EDT LABORATORY [facility] HGB 8.1(L) 12.0 - 15.3 g/dL 11/17/2023 6:07 AM EDT LABORATORY [facility] HCT 25.2(L) 36.0 - 45.2 % 11/17/2023 6:07 AM EDT LABORATORY [facility] MCV 86.0 81.5 - 97.5 fL 11/17/2023 6:07 AM EDT LABORATORY [facility] MCH 27.6 27.0 - 34.0 pg 11/17/2023 6:07 AM EDT LABORATORY [facility] MCHC 32.1 32.0 - 36.0 g/dL 11/17/2023 6:07 AM EDT LABORATORY [facility] RDW 14.6 11.5 - 15.5 % 11/17/2023 6:07 AM EDT LABORATORY [facility] PLT 444(H) 140 - 400 K/uL 11/17/2023 6:07 AM EDT LABORATORY [facility] MPV 9.6 6.6 - 11.1 fL 11/17/2023 6:07 AM EDT LABORATORY [facility] nRBCs 0 <=0 /100 WBCs 11/17/2023 6:07 AM EDT LABORATORY [facility] Blood Venous blood specimen / Unknown Venipuncture / Unknown 11/17/2023 5:59 AM EDT 11/17/2023 6:03 AM EDT Min Min Pearl THAKUR LAB BLOOD ORDERABLES Performing Organization Address City/[facility]/ZIP Co de Phone Number LABORATORY [address] [phone] * (ABNORMAL) TROPONIN T, HIGH SENSITIVITY (11/17/2023 5:59 AM EDT) Troponin T, High Sensitivity 320(HH) <=14 ng/L 11/17/2023 6:26 AM EDT LABORATORY [facility] Blood Venous blood specimen / Unknown Venipuncture / Unknown 11/17/2023 5:59 AM EDT 11/17/2023 6:02 AM EDT Min Min Pearl THAKUR LAB BLOOD ORDERABLES Performing Organization Address [facility] de Phone Number LABORATORY [address] [address] * (ABNORMAL) PHOSPHORUS (11/17/2023 5:59 AM EDT) Phosphorus 6.9(H) 2.5 - 4.8 mg/dL 11/17/2023 6:40 AM EDT LABORATORY [facility] Blood Venous blood specimen / Unknown Venipuncture / Unknown 11/17/2023 5:59 AM EDT 11/17/2023 6:03 AM EDT Min Min Pearl THAKUR LAB BLOOD ORDERABLES Performing Organization Address City/[facility] de Phone Number LABORATORY [address] [address] * MAGNESIUM (11/17/2023 5:59 AM EDT) Magnesium 1.8 1.5 - 2.6 mg/dL 11/17/2023 6:40 AM EDT LABORATORY [facility] Blood Venous blood specimen / Unknown Venipuncture / Unknown 11/17/2023 5:59 AM EDT 11/17/2023 6:03 AM EDT Min Min Pearl THAKUR LAB BLOOD ORDERABLES LABORATORY GL [address] [place] [address] * (ABNORMAL) COMPREHENSIVE METABOLIC PANEL (11/17/2023 5:59 AM EDT) BUN 131(H) 6 - 20 mg/dL 11/17/2023 6:40 AM EDT LABORATORY [facility] CREATININE 3.2(H) 0.5 - 1.0 mg/dL 11/17/2023 6:40 AM EDT LABORATORY [facility] EGFR 16(L) >=60 mL/min 11/17/2023 6:40 AM EDT LABORATORY [facility] Comment:eGFR is calculated b ased on the CKD-EPI 2020 equation. SODIUM 132(L) 135 - 146 mmol/L 11/17/2023 6:40 AM EDT LABORATORY [facility] POTASSIUM 4.5 3.5 - 5.1 mmol/L 11/17/2023 6:40 AM EDT LABORATORY [facility] CHLORIDE 92(L) 98 - 107 mmol/L 11/17/2023 6:40 AM EDT LABORATORY [facility] CO2 24 22 - 32 mmol/L 11/17/2023 6:40 AM EDT LABORATORY [facility] ANION GAP 16(H) 7 - 15 mmol/L 11/17/2023 6:40 AM EDT LABORATORY [facility] GLUCOSE 161(H) 70 - 120 mg/dL 11/17/2023 6:40 AM EDT LABORATORY [facility] Albumin 2.2(L) 3.8 - 5.0 g/dL 11/17/2023 6:40 AM EDT LABORATORY [facility] AST 17 10 - 35 U/L 11/17/2023 6:40 AM EDT LABORATORY [facility] Alkaline Phosphatase 224(H) 35 - 130 U/L 11/17/2023 6:40 AM EDT LABORATORY [facility] Bilirubin, Total 0.4 <=1.2 mg/dL 11/17/2023 6:40 AM EDT LABORATORY [facility] CALCIUM 8.5 8.4 - 10.2 mg/dL 11/17/2023 6:40 AM EDT LABORATORY [facility] Protein 6.8 6.0 - 8.3 g/dL 11/17/2023 6:40 AM EDT LABORATORY [facility] ALT 10 10 - 35 U/L 11/17/2023 6:40 AM EDT LABORATORY [facility] Blood Venous blood specimen / Unknown Venipuncture / Unknown 11/17/2023 5:59 AM EDT 11/17/2023 6:03 AM EDT Bernabe Gallagher MD LAB BLOOD ORDERABLES LABORATORY [address] [address] * TRANSFUSE PACKED RED BLOOD CELLS (11/17/2023 4:14 AM EDT) Alan Marta PA-C BLD BANK TRANFUSE OR DERABLES * TRANSFUSE PACKED RED BLOOD CELLS (11/17/2023 4:14 AM EDT) Alan Marta PA-C BLD BANK TRANFUSE OR DERABLES * PREPARE PACKED RED BLOOD CELLS (11/17/2023 1:05 AM EDT) [facility] Unit Product Code [id number] 11/18/2023 12:05 PM EDT LABORATORY [facility] B[facility]OD [facility] Unit Number [id number] 11/18/2023 12:05 PM EDT LABORATORY [facility] BLOOD BANK Unit ABO A 11/18/2023 12:05 PM EDT LABORATORY [facility] BLOOD [facility] Unit Rh POS 11/18/2023 12:05 PM EDT LABORATORY [facility] BLOOD BANK Unit Crossmatch Compatible 11/17/2023 1:13 AM EDT LABORATORY [facility] BLOOD BANK Unit Status PT 11/18/2023 12:05 PM EDT LABORATORY [facility] BLOOD [facility]ANK Unit Blood Type APOS 11/18/2023 12:05 PM EDT LABORATORY [facility] BLOOD B[facility] Unit Expiration [id number] 11/18/2023 12:05 PM EDT LABORATORY [facility] BLOOD BANK Unit Barcode [id number] 11/18/2023 12:05 PM EDT LABORATORY [facility] BLOOD BANK 11/17/2023 1:05 AM EDT Alan Lozano PA-C BLD BANK PRODUCT ORD ERABLES Performing Organization Address [facility] Co de Phone Number LABORATORY [facility] BLOOD BANK [address] [place] [phone] * EXTRA GREEN TOP NO GEL (11/17/2023 12:14 AM EDT) Blood Venous blood specimen / Unknown 11/17/2023 12:14 AM EDT 11/17/2023 12:21 AM EDT Min Min Pearl THAKUR LAB BLOOD ORDERABLES Performing Organization Address City/[facility] Co de Phone Number LABORATORY [address] [phone] * EXTRA GREEN TOP WITH GEL (11/17/2023 12:14 AM EDT) Blood Venous blood specimen / Unknown 11/17/2023 12:14 AM EDT 11/17/2023 12:21 AM EDT Min Min Pearl THAKUR LAB BLOOD ORDERABLES Performing Organization Address City/[facility] Co de Phone Number LABORATORY [address] [phone] * (ABNORMAL) TROPONIN T, HIGH SENSITIVITY (11/17/2023 12:14 AM EDT) Troponin T, High Sensitivity 332(HH) <=14 ng/L 11/17/2023 1:31 AM EDT LABORATORY [facility] Blood Capillary blood specimen / Unknown Capillary / Unknown 11/17/2023 12:14 AM EDT 11/17/2023 12:53 AM EDT Min Min Pearl THAKUR LAB BLOOD ORDERABLES Performing Organization Address [facility] de Phone Number LABORATORY [address] [address] * (ABNORMAL) HGB (11/17/2023 12:14 AM EDT) HGB 6.8(L) 12.0 - 15.3 g/dL 11/17/2023 12:28 AM EDT LABORATORY [facility] Blood Capillary blood specimen / Unknown Capillary / Unknown 11/17/2023 12:14 AM EDT 11/17/2023 12:20 AM EDT Min Min Pearl THAKUR LAB BLOOD ORDERABLES Performing Organization Address City/[facility]/ZIP Co de Phone Number LABORATORY [address] [address] * (ABNORMAL) GLUCOSE METER, POINT OF CARE (11/16/2023 9:25 PM EDT) GLUCOSE - POCT 198(H) 70 - 120 mg/dL 11/16/2023 9:29 PM EDT [facility] Blood Whole blood specimen / Unknown 11/16/2023 9:25 PM EDT 11/16/2023 9:29 PM EDT Min Min Pearl THAKUR LAB POINT OF CARE TE ST DOCKED DEVICE UNSOLICITED RESULTS Performing Organization Address [facility] Co de Phone Number [facility] [address] [place] [phone] * (ABNORMAL) HGB (11/16/2023 6:35 PM EDT) HGB 7.5(L) 12.0 - 15.3 g/dL 11/16/2023 6:44 PM EDT LABORATORY [facility] Blood Venous blood specimen / Unknown Venipuncture / Unknown 11/16/2023 6:35 PM EDT 11/16/2023 6:42 PM EDT Min Min Pearl THAKUR LAB BLOOD ORDERABLES Performing Organization Address City/[facility] Co de Phone Number LABORATORY [address] [phone] * (ABNORMAL) GLUCOSE METER, POINT OF CARE (11/16/2023 6:14 PM EDT) GLUCOSE - POCT 130(H) 70 - 120 mg/dL 11/16/2023 6:18 PM EDT [facility] Blood Whole blood specimen / Unknown 11/16/2023 6:14 PM EDT 11/16/2023 6:18 PM EDT Min Min Pearl THAKUR LAB POINT OF CARE TE ST DOCKED DEVICE UNSOLICITED RESULTS Performing Organization Address [facility] de Phone Number [facility] [address] [place] [phone] * EXTRA URINE (11/16/2023 5:22 PM EDT) Urine Urine specimen / Unknown 11/16/2023 5:22 PM EDT 11/16/2023 5:40 PM EDT Min Min Pearl THAKUR LAB URINE ORDERABLES Performing Organization Address [facility] de Phone Number LABORATORY [address] [phone] * CULTURE, URINE, QUANTITATIVE (11/16/2023 5:22 PM EDT) Pathologist [facility] [place] Culture Growth No significant growth 11/17/2023 4:21 PM EDT LABORATORY [facility] Urine Urine specimen obtained by clean catch procedure / Unknown Non-blood Collection / Unknown 11/16/2023 5:22 PM EDT 11/16/2023 5:39 PM EDT Min Min Pearl THAKUR LAB MICRO - GENERAL ORDERABLES Performing Organization Address [facility] Co de Phone Number LABORATORY [address] [address] * MRSA SCREEN, PCR (11/16/2023 5:22 PM EDT) Pathologist [facility] [place] MRSA PCR Result Negative Negative 11:00 PM EDT LABORATORY [facility] Comment:No Methicillin resis tant Staphylococcus aureus detected by PCR (amplified probe). Upper Respiratory Swab of internal nose / Unknown Non-blood Collection / Unknown 11/16/2023 5:22 PM EDT 11/16/2023 5:39 PM EDT Min Min Pearl THAKUR LAB MICRO - GENERAL ORDERABLES LABORATORY [address] [address] * CT LOWER EXTREMITY RIGHT WO CONTRAST (11/16/2023 5:07 PM EDT) Anatomical Region Laterality Modality Lower Extremity, Ankle, Femu r, Foot, Hip, Knee, Musculoskeletal, TibFib Computed Tomography 11/16/2023 4:55 PM EDT Impressions 11/16/2023 5:31 PM EDT IMPRESSION: Diffuse stranding in the subcutaneous tissue of the thigh, especially inner thigh. Findings consistent with inflammatory changes/cellulitis or bruising. No drainable fluid collection identified. PROCEDURE INFORMATION: Exam: CT Left Lower Extremity Exam date and time: 11/16/2023 4:55 PM Age: 63 years old Clinical indication: Other: Redness inner thigh; Additional info: Redness, induration of right inner thigh; Hip pain; Infection, known or R/O; No hip x-ray result available; Hip pain; Area of interest - ankle/foot TECHNIQUE: Imaging protocol: CT of the left lower extremity without contrast was performed. Radiation optimization: All CT scans at this facility use at least one of these dose optimization techniques: automated exposure control; mA and/or kV adjustment per patient size (includes targeted exams where dose is matched to clinical indication); or iterative reconstruction. COMPARISON: DX XR HIP UNILAT 2-3 VIEWS INCLUDING AP PELVIS 06/01/2023 11:10 AM FINDINGS: Bones/joints: Normal. No acute fracture or dislocation. Soft tissues: Diffuse stranding in the subcutaneous tissue of the thigh, especially inner thigh. Findings consistent with inflammatory changes/cellulitis or bruising. No drainable fluid collection identified. IMPRESSION: Diffuse stranding in the subcutaneous tissue of the thigh, especially inner thigh. Findings consistent with inflammatory changes/cellulitis or bruising. No drainable fluid collection identified. THIS DOCUMENT HAS BEEN ELECTRONICALLY SIGNED BY MATTHEW MCMILLAN MD Narrative 11/16/2023 5:31 PM EDT PROCEDURE INFORMATION: Exam: CT Right Lower Extremity Exam date and time: 11/16/2023 4:55 PM Age: 63 years old Clinical indication: Other: Redness inner thigh; Additional info: Redness, induration of right inner thigh; Hip pain; Infection, known or R/O; No hip x-ray result available; Hip pain; Area of interest - ankle/foot TECHNIQUE: Imaging protocol: CT of the right lower extremity without contrast was performed. Radiation optimization: All CT scans at this facility use at least one of these dose optimization techniques: automated exposure control; mA and/or kV adjustment per patient size (includes targeted exams where dose is matched to clinical indication); or iterative reconstruction. COMPARISON: DX XR HIP UNILAT 2-3 VIEWS INCLUDING AP PELVIS 06/01/2023 11:10 AM FINDINGS: Bones/joints: There are moderate degenerative changes present. Soft tissues: Diffuse stranding in the subcutaneous tissue of the thigh, especially inner thigh. Findings consistent with inflammatory changes/cellulitis or bruising. No drainable fluid collection identified. Vasculature: The vasculature demonstrates diffuse severe atherosclerotic calcification. There are numerous benign phleboliths in the pelvis. Urinary bladder: Bladder is collapsed around [place]. Procedure Note Matthew Mcmillan MD - 11/16/2023 PROCEDURE INFORMATION: Exam: CT Right Lower Extremity Exam date and time: 11/16/2023 4:55 PM Age: 63 years old Clinical indication: Other: Redness inner thigh; Additional info: Redness, induration of right inner thigh; Hip pain; Infection, known or R/O; No hip x-ray result available; Hip pain; Area of interest - ankle/foot TECHNIQUE: Imaging protocol: CT of the right lower extremity without contrast was performed. Radiation optimization: All CT scans at this facility use at least one ofthese dose optimization techniques: automated exposure control; mA and/or kV adjustment per patient size (includes targeted exams where dose is matchedto clinical indication); or iterative reconstruction. COMPARISON: DX XR HIP UNILAT 2-3 VIEWS INCLUDING AP PELVIS 06/01/2023 11:10 AM FINDINGS: Bones/joints: There are moderate degenerative changes present. Soft tissues: Diffuse stranding in the subcutaneous tissue of the thigh, especially inner thigh. Findings consistent with inflammatory changes/cellulitis or bruising. No drainable fluid collection identified. Vasculature: The vasculature demonstrates diffuse severe atherosclerotic calcification. There are numerous benign phleboliths in the pelvis. Urinary bladder: Bladder is collapsed around [place]. IMPRESSION IMPRESSION: Diffuse stranding in the subcutaneous tissue of the thigh, especiallyinner thigh. Findings consistent with inflammatory changes/cellulitis orbruising. No drainable fluid collection identified. PROCEDURE INFORMATION: Exam: CT Left Lower Extremity Exam date and time: 11/16/2023 4:55 PM Age: 63 years old Clinical indication: Other: Redness inner thigh; Additional info: Redness, induration of right inner thigh; Hip pain; Infection, known or R/O; No hip x-ray result available; Hip pain; Area of interest - ankle/foot TECHNIQUE: Imaging protocol: CT of the left lower extremity without contrast was performed. Radiation optimization: All CT scans at this facility use at least one ofthese dose optimization techniques: automated exposure control; mA and/or kV adjustment per patient size (includes targeted exams where dose is matchedto clinical indication); or iterative reconstruction. COMPARISON: DX XR HIP UNILAT 2-3 VIEWS INCLUDING AP PELVIS 06/01/2023 11:10 AM FINDINGS: Bones/joints: Normal. No acute fracture or dislocation. Soft tissues: Diffuse stranding in the subcutaneous tissue of the thigh, especially inner thigh. Findings consistent with inflammatory changes/cellulitis or bruising. No drainable fluid collection identified. IMPRESSION: Diffuse stranding in the subcutaneous tissue of the thigh, especiallyinner thigh. Findings consistent with inflammatory changes/cellulitis orbruising. No drainable fluid collection identified. THIS DOCUMENT HAS BEEN ELECTRONICALLY SIGNED BY MATTHEW MCMILLAN MD Min Min Pearl THAKUR RAD CT * CT LOWER EXTREMITY LEFT WO CONTRAST (11/16/2023 5:07 PM EDT) Anatomical Region Laterality Modality Lower Extremity, Ankle, Femu r, Foot, Hip, Knee, Musculoskeletal, TibFib Computed Tomography 11/16/2023 4:55 PM EDT Impressions 11/16/2023 5:31 PM EDT IMPRESSION: Diffuse stranding in the subcutaneous tissue of the thigh, especially inner thigh. Findings consistent with inflammatory changes/cellulitis or bruising. No drainable fluid collection identified. PROCEDURE INFORMATION: Exam: CT Left Lower Extremity Exam date and time: 11/16/2023 4:55 PM Age: 63 years old Clinical indication: Other: Redness inner thigh; Additional info: Redness, induration of right inner thigh; Hip pain; Infection, known or R/O; No hip x-ray result available; Hip pain; Area of interest - ankle/foot TECHNIQUE: Imaging protocol: CT of the left lower extremity without contrast was performed. Radiation optimization: All CT scans at this facility use at least one of these dose optimization techniques: automated exposure control; mA and/or kV adjustment per patient size (includes targeted exams where dose is matched to clinical indication); or iterative reconstruction. COMPARISON: DX XR HIP UNILAT 2-3 VIEWS INCLUDING AP PELVIS 06/01/2023 11:10 AM FINDINGS: Bones/joints: Normal. No acute fracture or dislocation. Soft tissues: Diffuse stranding in the subcutaneous tissue of the thigh, especially inner thigh. Findings consistent with inflammatory changes/cellulitis or bruising. No drainable fluid collection identified. IMPRESSION: Diffuse stranding in the subcutaneous tissue of the thigh, especially inner thigh. Findings consistent with inflammatory changes/cellulitis or bruising. No drainable fluid collection identified. THIS DOCUMENT HAS BEEN ELECTRONICALLY SIGNED BY MATTHEW MCMILLAN MD Narrative 11/16/2023 5:31 PM EDT PROCEDURE INFORMATION: Exam: CT Right Lower Extremity Exam date and time: 11/16/2023 4:55 PM Age: 63 years old Clinical indication: Other: Redness inner thigh; Additional info: Redness, induration of right inner thigh; Hip pain; Infection, known or R/O; No hip x-ray result available; Hip pain; Area of interest - ankle/foot TECHNIQUE: Imaging protocol: CT of the right lower extremity without contrast was performed. Radiation optimization: All CT scans at this facility use at least one of these dose optimization techniques: automated exposure control; mA and/or kV adjustment per patient size (includes targeted exams where dose is matched to clinical indication); or iterative reconstruction. COMPARISON: DX XR HIP UNILAT 2-3 VIEWS INCLUDING AP PELVIS 06/01/2023 11:10 AM FINDINGS: Bones/joints: There are moderate degenerative changes present. Soft tissues: Diffuse stranding in the subcutaneous tissue of the thigh, especially inner thigh. Findings consistent with inflammatory changes/cellulitis or bruising. No drainable fluid collection identified. Vasculature: The vasculature demonstrates diffuse severe atherosclerotic calcification. There are numerous benign phleboliths in the pelvis. Urinary bladder: Bladder is collapsed around [place]. Procedure Note Matthew Mcmillan MD - 11/16/2023 PROCEDURE INFORMATION: Exam: CT Right Lower Extremity Exam date and time: 11/16/2023 4:55 PM Age: 63 years old Clinical indication: Other: Redness inner thigh; Additional info: Redness, induration of right inner thigh; Hip pain; Infection, known or R/O; No hip x-ray result available; Hip pain; Area of interest - ankle/foot TECHNIQUE: Imaging protocol: CT of the right lower extremity without contrast was performed. Radiation optimization: All CT scans at this facility use at least one ofthese dose optimization techniques: automated exposure control; mA and/or kV adjustment per patient size (includes targeted exams where dose is matchedto clinical indication); or iterative reconstruction. COMPARISON: DX XR HIP UNILAT 2-3 VIEWS INCLUDING AP PELVIS 06/01/2023 11:10 AM FINDINGS: Bones/joints: There are moderate degenerative changes present. Soft tissues: Diffuse stranding in the subcutaneous tissue of the thigh, especially inner thigh. Findings consistent with inflammatory changes/cellulitis or bruising. No drainable fluid collection identified. Vasculature: The vasculature demonstrates diffuse severe atherosclerotic calcification. There are numerous benign phleboliths in the pelvis. Urinary bladder: Bladder is collapsed around [place]. IMPRESSION IMPRESSION: Diffuse stranding in the subcutaneous tissue of the thigh, especiallyinner thigh. Findings consistent with inflammatory changes/cellulitis orbruising. No drainable fluid collection identified. PROCEDURE INFORMATION: Exam: CT Left Lower Extremity Exam date and time: 11/16/2023 4:55 PM Age: 63 years old Clinical indication: Other: Redness inner thigh; Additional info: Redness, induration of right inner thigh; Hip pain; Infection, known or R/O; No hip x-ray result available; Hip pain; Area of interest - ankle/foot TECHNIQUE: Imaging protocol: CT of the left lower extremity without contrast was performed. Radiation optimization: All CT scans at this facility use at least one ofthese dose optimization techniques: automated exposure control; mA and/or kV adjustment per patient size (includes targeted exams where dose is matchedto clinical indication); or iterative reconstruction. COMPARISON: DX XR HIP UNILAT 2-3 VIEWS INCLUDING AP PELVIS 06/01/2023 11:10 AM FINDINGS: Bones/joints: Normal. No acute fracture or dislocation. Soft tissues: Diffuse stranding in the subcutaneous tissue of the thigh, especially inner thigh. Findings consistent with inflammatory changes/cellulitis or bruising. No drainable fluid collection identified. IMPRESSION: Diffuse stranding in the subcutaneous tissue of the thigh, especiallyinner thigh. Findings consistent with inflammatory changes/cellulitis orbruising. No drainable fluid collection identified. THIS DOCUMENT HAS BEEN ELECTRONICALLY SIGNED BY MATTHEW MCMILLAN MD Min Min Xanderw RAD CT * CT ABD/PELVIS WO IV/ORAL CONTRAST (11/16/2023 5:07 PM EDT) Anatomical Region Laterality Modality Body, Abdomen, Pelvis Computed T omography 11/16/2023 4:55 PM EDT Impressions 11/16/2023 5:23 PM EDT IMPRESSION: 1. Overall nonobstructive bowel gas pattern. No focal bowel wall thickening identified 2. Nonspecific mild stranding in the right lower quadrant of the mesentery. Shotty mesenteric lymph nodes. Question mild mesenteric adenitis 3. Appendix not definitively identified 4. Small right pleural effusion, decreased from previous 5. Other chronic changes as in findings. THIS DOCUMENT HAS BEEN ELECTRONICALLY SIGNED BY MATTHEW MCMILLAN MD Narrative 11/16/2023 5:23 PM EDT PROCEDURE INFORMATION: Exam: CT Abdomen And Pelvis Without Contrast Exam date and time: 11/16/2023 4:55 PM Age: 63 years old Clinical indication: Other: Pain; Additional info: Abdominal pain, gi bleed TECHNIQUE: Imaging protocol: Computed tomography of the abdomen and pelvis without contrast. Radiation optimization: All CT scans at this facility use at least one of these dose optimization techniques: automated exposure control; mA and/or kV adjustment per patient size (includes targeted exams where dose is matched to clinical indication); or iterative reconstruction. COMPARISON: CT ABD/PELVIS WO IV/ORAL CONTRAST 06/17/2023 7:15 PM FINDINGS: Lungs: There is subpleural atelectasis of the dependent portions of the lungs. Pleural spaces: Trace right pleural effusion. Liver: Normal. No mass. Gallbladder and biliary ducts: The gallbladder is distended. Pancreas: Normal. No ductal dilation. Spleen: Normal. No splenomegaly. Adrenal glands: Normal. No mass. Kidneys and ureters: Normal. No hydronephrosis. Stomach and bowel: Mild diverticulosis is present in the distal colon. Appendix: Appendix not definitively identified. Intraperitoneal space: Mild stranding in the mesentery of the right lower quadrant of unclear etiology. Vasculature: The vasculature demonstrates diffuse moderate atherosclerotic calcification. Lymph nodes: There are multiple nonspecific nonpathologic but prominent lymph nodes in the mesentery. There are no mesenteric lymph nodes of pathologic dimensions. Urinary bladder: Bladder is collapsed around [place]ru[place]. Reproductive: Unremarkable as visualized. Bones/joints: Unremarkable. No acute fracture. Soft tissues: Unremarkable. Procedure Note Matthew Mcmillan MD - 11/16/2023 PROCEDURE INFORMATION: Exam: CT Abdomen And Pelvis Without Contrast Exam date and time: 11/16/2023 4:55 PM Age: 63 years old Clinical indication: Other: Pain; Additional info: Abdominal pain, gibleed TECHNIQUE: Imaging protocol: Computed tomography of the abdomen and pelvis without contrast. Radiation optimization: All CT scans at this facility use at least one ofthese dose optimization techniques: automated exposure control; mA and/or kV adjustment per patient size (includes targeted exams where dose is matchedto clinical indication); or iterative reconstruction. COMPARISON: CT ABD/PELVIS WO IV/ORAL CONTRAST 06/17/2023 7:15 PM FINDINGS: Lungs: There is subpleural atelectasis of the dependent portions of thelungs. Pleural spaces: Trace right pleural effusion. Liver: Normal. No mass. Gallbladder and biliary ducts: The gallbladder is distended. Pancreas: Normal. No ductal dilation. Spleen: Normal. No splenomegaly. Adrenal glands: Normal. No mass. Kidneys and ureters: Normal. No hydronephrosis. Stomach and bowel: Mild diverticulosis is present in the distal colon. Appendix: Appendix not definitively identified. Intraperitoneal space: Mild stranding in the mesentery of the right lower quadrant of unclear etiology. Vasculature: The vasculature demonstrates diffuse moderate atherosclerotic calcification. Lymph nodes: There are multiple nonspecific nonpathologic but prominentlymph nodes in the mesentery. There are no mesenteric lymph nodes of pathologic dimensions. Urinary bladder: Bladder is collapsed around [place]. Reproductive: Unremarkable as visualized. Bones/joints: Unremarkable. No acute fracture. Soft tissues: Unremarkable. IMPRESSION IMPRESSION: 1. Overall nonobstructive bowel gas pattern. No focal bowel wallthickening identified 2. Nonspecific mild stranding in the right lower quadrant of themesentery. Shotty mesenteric lymph nodes. Question mild mesenteric adenitis 3. Appendix not definitively identified 4. Small right pleural effusion, decreased from previous 5. Other chronic changes as in findings. THIS DOCUMENT HAS BEEN ELECTRONICALLY SIGNED BY MATTHEW MCMILLAN MD Bernabe Gallagher MD RAD CT * TRANSFUSE PACKED RED BLOOD CELLS (11/16/2023 4:44 PM EDT) Deng Ness [facility] TRANFUSE O RDERABLES * (ABNORMAL) AMMONIA (11/16/2023 4:20 PM EDT) Ammonia <10(L) 11 - 35 umol/L 11/16/2023 5:04 PM EDT LABORATORY [facility] Blood Venous blood specimen / Unknown Venipuncture / Unknown 11/16/2023 4:20 PM EDT 11/16/2023 4:23 PM EDT Bernabe Gallagher MD LAB BLOOD ORDERABLES LABORATORY [address] [address] * XR FOOT 3 OR MORE VIEWS (11/16/2023 2:19 PM EDT) Anatomical Region Laterality Modality Foot, Lower Extremity Digital Ra diography 11/16/2023 2:09 PM EDT Impressions 11/16/2023 2:24 PM EDT IMPRESSION: Subtle irregularity of the bony cortex along the plantar surface of the calcaneus may represent sequelae of known osteomyelitis. Soft tissue swelling. THIS DOCUMENT HAS BEEN ELECTRONICALLY SIGNED BY MATTHEW MCMILLAN MD Narrative 11/16/2023 2:24 PM EDT PROCEDURE INFORMATION: Exam: XR Right Foot Exam date and time: 11/16/2023 2:09 PM Age: 63 years old Clinical indication: Other: Heel wound. Recent osteo. Best images due to patient condition. TECHNIQUE: Imaging protocol: Radiologic exam of the right foot. Views: 3 or more views. COMPARISON: MRI FOOT RIGHT WO CONTRAST 10/04/2023 11:23 AM FINDINGS: Bones/joints: There is no evidence of malalignment or dislocation. Subtle irregularity of the bony cortex along the plantar surface of the calcaneus may represent sequelae of known osteomyelitis. Diffuse osteopenia. Scattered degenerative changes. Soft tissues: There is soft tissue swelling. Procedure Note Matthew Mcmillan MD - 11/16/2023 PROCEDURE INFORMATION: Exam: XR Right Foot Exam date and time: 11/16/2023 2:09 PM Age: 63 years old Clinical indication: Other: Heel wound. Recent osteo. Best images due to patient condition. TECHNIQUE: Imaging protocol: Radiologic exam of the right foot. Views: 3 or more views. COMPARISON: MRI FOOT RIGHT WO CONTRAST 10/04/2023 11:23 AM FINDINGS: Bones/joints: There is no evidence of malalignment or dislocation. Subtle irregularity of the bony cortex along the plantar surface of the calcaneusmay represent sequelae of known osteomyelitis. Diffuse osteopenia. Scattered degenerative changes. Soft tissues: There is soft tissue swelling. IMPRESSION IMPRESSION: Subtle irregularity of the bony cortex along the plantar surface of the calcaneus may represent sequelae of known osteomyelitis. Soft tissueswelling. THIS DOCUMENT HAS BEEN ELECTRONICALLY SIGNED BY MATTHEW MCMILLAN MD Deng Ness DO RADIOLOGY ([facility]) * (ABNORMAL) TROPONIN T, HIGH SENSITIVITY (11/16/2023 2:08 PM EDT) Troponin T, High Sensitivity 419(HH) <=14 ng/L 11/16/2023 2:37 PM EDT LABORATORY GL Blood Venous blood specimen / Unknown Venipuncture / Unknown 11/16/2023 2:08 PM EDT 11/16/2023 2:10 PM EDT Deng Ness DO LAB BLOOD ORDERABLE S [place] [id number] * XR SACRUM COCCYX MINIMUM 2 VIEWS (11/16/2023 1:54 PM EDT) Anatomical Region Laterality Modality Vertebra, Spine, Pelvis Digital Radiography 11/16/2023 1:39 PM EDT Impressions 11/16/2023 2:00 PM EDT IMPRESSION: No gross cortical disruption or bony erosion on the visualized portions of the bony skeleton. Degenerative changes. THIS DOCUMENT HAS BEEN ELECTRONICALLY SIGNED BY MATTHEW MCMILLAN MD Narrative 11/16/2023 2:00 PM EDT PROCEDURE INFORMATION: Exam: XR Sacrum and Coccyx, 2 or More Views Exam date and time: 11/16/2023 1:39 PM Age: 63 years old Clinical indication: Other: Sepsis; Open sacral wound with stool; Best images possible due to PT body habitus - lateral image done cross table TECHNIQUE: Imaging protocol: XR of the sacrum and coccyx, 2 or more views. COMPARISON: CT ABD/PELVIS WO IV/ORAL CONTRAST 06/17/2023 7:15 PM FINDINGS: Bones/joints: There is no evidence of malalignment or dislocation. There is no evidence of bony cortex disruption or periostitis. Sclerosis of the endplates and mild facet arthropathy. No definite cortical disruption. There are moderate degenerative changes of the sacroiliac joints. Soft tissues: See "Bones/joints" finding. Procedure Note Matthew Mcmillan MD - 11/16/2023 PROCEDURE INFORMATION: Exam: XR Sacrum and Coccyx, 2 or More Views Exam date and time: 11/16/2023 1:39 PM Age: 63 years old Clinical indication: Other: Sepsis; Open sacral wound with stool; Bestimages possible due to PT body habitus - lateral image done cross table TECHNIQUE: Imaging protocol: XR of the sacrum and coccyx, 2 or more views. COMPARISON: CT ABD/PELVIS WO IV/ORAL CONTRAST 06/17/2023 7:15 PM FINDINGS: Bones/joints: There is no evidence of malalignment or dislocation. Thereis no evidence of bony cortex disruption or periostitis. Sclerosis of theendplates and mild facet arthropathy. No definite cortical disruption. There aremoderate degenerative changes of the sacroiliac joints. Soft tissues: See "Bones/joints" finding. IMPRESSION IMPRESSION: No gross cortical disruption or bony erosion on the visualized portions ofthe bony skeleton. Degenerative changes. THIS DOCUMENT HAS BEEN ELECTRONICALLY SIGNED BY MATTHEW MCMILLAN MD Deng Ness RADIOLOGY ([facility]) * XR CHEST 1 VIEW (11/16/2023 1:54 PM EDT) Anatomical Region Laterality Modality Chest Digital Radiogra phy 11/16/2023 1:39 PM EDT Impressions 11/16/2023 2:01 PM EDT IMPRESSION: No focal lobar consolidation. Question viral process or bronchitis. THIS DOCUMENT HAS BEEN ELECTRONICALLY SIGNED BY MATTHEW MCMILLAN MD Narrative 11/16/2023 2:01 PM EDT PROCEDURE INFORMATION: Exam: XR Chest Exam date and time: 11/16/2023 1:39 PM Age: 63 years old Clinical indication: Other: Sepsis; Open sacral wound with stool; Best images possible due to PT body habitus - lateral image done cross table TECHNIQUE: Imaging protocol: Radiologic exam of the chest. Views: 1 view. COMPARISON: DX XR CHEST 1 VIEW 10/06/2023 8:28 AM FINDINGS: Tubes, catheters and devices: Multiple monitoring leads projecting over the field of view. Lungs: No definite air bronchograms identified. Nonspecific coarsening of pulmonary parenchyma present. Pleural spaces: Unremarkable. No pleural effusion. No pneumothorax. Heart/Mediastinum: Cardiomegaly. Bones/joints: Unremarkable. Procedure Note Matthew Mcmillan MD - 11/16/2023 PROCEDURE INFORMATION: Exam: XR Chest Exam date and time: 11/16/2023 1:39 PM Age: 63 years old Clinical indication: Other: Sepsis; Open sacral wound with stool; Bestimages possible due to PT body habitus - lateral image done cross table TECHNIQUE: Imaging protocol: Radiologic exam of the chest. Views: 1 view. COMPARISON: DX XR CHEST 1 VIEW 10/06/2023 8:28 AM FINDINGS: Tubes, catheters and devices: Multiple monitoring leads projecting overthe field of view. Lungs: No definite air bronchograms identified. Nonspecific coarsening of pulmonary parenchyma present. Pleural spaces: Unremarkable. No pleural effusion. No pneumothorax. Heart/Mediastinum: Cardiomegaly. Bones/joints: Unremarkable. IMPRESSION IMPRESSION: No focal lobar consolidation. Question viral process or bronchitis. THIS DOCUMENT HAS BEEN ELECTRONICALLY SIGNED BY MATTHEW MCMILLAN MD Deng Ness DO RADIOLOGY ([facility]) * PREPARE PACKED RED BLOOD CELLS (11/16/2023 1:15 PM EDT) Unit Product Code [id number] 11/18/2023 12:05 AM EDT LABORATORY [facility] BLOOD BANK Unit Number [id number] 11/18/2023 12:05 AM EDT LABORATORY [facility] BLOOD B[facility] Unit ABO A 11/18/2023 12:05 AM EDT LABORATORY [facility] BLOOD [facility] Unit Rh POS 11/18/2023 12:05 AM EDT LABORATORY [facility] BLOOD [facility]ANK Unit Crossmatch Compatible 11/16/2023 1:34 PM EDT LABORATORY [facility] BLOOD [facility] Unit Status PT 11/18/2023 12:05 AM EDT LABORATORY [facility] B[facility]OD [facility] Unit Blood Type APOS 11/18/2023 12:05 AM EDT LABORATORY [facility] BLOOD [facility] Unit Expiration [id number] 11/18/2023 12:05 AM EDT LABORATORY [facility] BLOOD BANK Unit Barcode [id number] 11/18/2023 12:05 AM EDT LABORATORY [facility] BLOOD [facility]ANK 11/16/2023 1:15 PM EDT Deng Ness DO BLD BANK PRODUCT OR DERABLES LABORATORY [facility] BLOOD BANK [address] [place] [id number] * CULTURE, BLOOD (11/16/2023 1:06 PM EDT) Blood Culture Growth No growth 11/21/2023 2:01 PM EDT LABORATORY [facility] Blood Venous blood specimen / Unknown Venipuncture / Unknown 11/16/2023 1:06 PM EDT 11/16/2023 1:08 PM EDT Deng Ness DO LAB MICRO - GENERAL ORDERABLES LABORATORY [facility] [address] [place] [address] * (ABNORMAL) BLOOD GAS, VENOUS (11/16/2023 1:06 PM EDT) Temperature 37.0 C 11/16/2023 1:24 PM EDT LABORATORY [facility] pH, Venous 7.369 7.320 - 7.430 units 11/16/2023 1:24 PM EDT LABORATORY [facility] pCO2, Venous 48.2 40.0 - 60.0 mmHg 11/16/2023 1:24 PM EDT LABORATORY [facility] pO2, Venous 36.8 25.0 - 50.0 mmHg 11/16/2023 1:24 PM EDT LABORATORY [facility] Base Excess, Venous 2.2(H) -2.0 - 2.0 mmol/L 11/16/2023 1:24 PM EDT LABORATORY [facility] HGB 6.7(L) 12.0 - 15.3 g/dL 11/16/2023 1:24 PM EDT LABORATORY [facility] Oxyhemoglobin, Venous 57.3 40.0 - 85.0 % total Hgb 11/16/2023 1:24 PM EDT LABORATORY [facility] Carboxyhemoglobi n, Whole Blood 2.0(H) <=1.5 % total Hgb 11/16/2023 1:24 PM EDT LABORATORY [facility] Comment:Smokers: 0-9.0 % Methemoglobin, Whole Blood 0.5 <=1.5 % total Hgb 11/16/2023 1:24 PM EDT LABORATORY [facility] Reduced Hemoglobin, Venous 40.2 % total Hgb 11/16/2023 1:24 PM EDT LABORATORY [facility] O2 Content, Venous 5.5(L) 7.0 - 18.0 %vol 11/16/2023 1:24 PM EDT LABORATORY [facility] Bicarbonate, Whole Blood 27.1 23.0 - 31.0 mmol/L 11/16/2023 1:24 PM EDT LABORATORY [facility] Blood Venous blood specimen / Unknown Venipuncture / Unknown 11/16/2023 1:06 PM EDT 11/16/2023 1:14 PM EDT [facility] LAB BLOOD ORDERABLE S Performing Organization Address City/[facility]/ZIP Co de Phone Number LABORATORY [facility] [address] [place] [address] * LACTATE, WHOLE BLOOD WITH REFLEX IF ABNORMAL (11/16/2023 1:06 PM EDT) Lactate, Whole Blood 1.2 0.4 - 2.0 mmol/L 11/16/2023 1:24 PM EDT LABORATORY GL Blood Venous blood specimen / Unknown Venipuncture / Unknown 11/16/2023 1:06 PM EDT 11/16/2023 1:14 PM EDT [facility] LAB BLOOD ORDERABLE S Performing Organization Address [facility] Co de Phone Number LABORATORY [address] [address] * (ABNORMAL) URINALYSIS, REFLEX TO CULTURE (11/16/2023 12:50 PM EDT) Color, Urine Yellow Colorless, Light Yellow, Yellow, Dark Yellow 11/16/2023 1:43 PM EDT LABORATORY [facility] Clarity, Urine Slightly Cloudy(A) Clear 11/16/2023 1:43 PM EDT LABORATORY [facility] Glucose, Urine Negative Negative mg/dL 11/16/2023 1:43 PM EDT LABORATORY [facility] Bilirubin, Urine Negative Negative 11/16/2023 1:43 PM EDT LABORATORY [facility] Ketone, Urine Negative Negative mg/dL 11/16/2023 1:43 PM EDT LABORATORY [facility] Specific [place], Urine 1.010 1.003 - 1.030 11/16/2023 1:43 PM EDT LABORATORY [facility] Blood, Urine Small(A) Negative 11/16/2023 1:43 PM EDT LABORATORY [facility] pH, Urine 6.0 5.0 - 7.5 Units 11/16/2023 1:43 PM EDT LABORATORY [facility] Protein, Urine 100(A) Negative mg/dL 11/16/2023 1:43 PM EDT LABORATORY [facility] Urobilinogen, Urine 0.2 0.2, 1.0 mg/dL 11/16/2023 1:43 PM EDT LABORATORY GL Nitrite, Urine Negative Negative 11/16/2023 1:43 PM EDT LABORATORY GL Esterase, Urine Large(A) Negative 11/16/2023 1:43 PM EDT LABORATORY GL RBC, Urine 0-2 0 - 2 /HPF 11/16/2023 1:43 PM EDT LABORATORY [facility] WBC, Urine 50+(A) 0 - 2 /HPF 11/16/2023 1:43 PM EDT LABORATORY [facility] Bacteria, Urine >200(A) 0 - 25 /HPF 11/16/2023 1:43 PM EDT LABORATORY GL Yeast, Urine Present(A) None /HPF 11/16/2023 1:43 PM EDT LABORATORY [facility] Culture, Urine 11/16/2023 1:43 PM EDT LABORATORY [facility] Comment:Quantitative urine c ulture to be performed Urine Urine specimen obtained by clean catch procedure / Unknown Non-blood Collection / Unknown 11/16/2023 12:50 PM EDT 11/16/2023 12:59 PM EDT Deng [facility] LAB URINE ORDERABLE S Performing Organization Address City/[facility]/ZIP Co de Phone Number LABORATORY [address] [address] * URINALYSIS, REFLEX TO CULTURE (CUP ONLY) (11/16/2023 12:50 PM EDT) Urinalysis, Reflex to Culture Specimen Specimen collected and received 11/16/2023 2:01 PM EDT LABORATORY [facility] Urine Urine specimen obtained by clean catch procedure / Unknown Non-blood Collection / Unknown 11/16/2023 12:50 PM EDT 11/16/2023 12:59 PM EDT Deng [facility] LAB URINE ORDERABLE S LABORATORY [address] [address] * EXTRA CARTER TOP (11/16/2023 12:36 PM EDT) Blood Venous blood specimen / Unknown 11/16/2023 12:36 PM EDT 11/16/2023 12:45 PM EDT [facility] LAB BLOOD ORDERABLE S Performing Organization Address City/[facility]/ZIP Co de Phone Number LABORATORY [address] [phone] * (ABNORMAL) CRP (INFLAMMATORY MARKER) (11/16/2023 12:36 PM EDT) Pathologist [facility] [place] CRP (Inflammatory Marker) 147(H) <=5 mg/L 11/16/2023 1:33 PM EDT LABORATORY [facility] Blood Venous blood specimen / Unknown Venipuncture / Unknown 11/16/2023 12:36 PM EDT 11/16/2023 12:46 PM EDT [facility] LAB BLOOD ORDERABLE S Performing Organization Address [facility] Co de Phone Number LABORATORY [address] [address] * (ABNORMAL) DIFFERENTIAL, AUTOMATED (11/16/2023 12:36 PM EDT) Pathologist [facility] [place] WBC 13.86(H) 4.00 - 10.80 K/uL 11/16/2023 12:52 PM EDT LABORATORY [facility] Neutrophils % 77.4(H) 40.0 - 75.0 % 11/16/2023 12:52 PM EDT LABORATORY [facility] Lymphocytes % 12.2(L) 18.0 - 42.0 % 11/16/2023 12:52 PM EDT LABORATORY [facility] Monocytes % 6.4 1.0 - 11.0 % 11/16/2023 12:52 PM EDT LABORATORY [facility] Eosinophils % 2.1 0.0 - 6.0 % 11/16/2023 12:52 PM EDT LABORATORY [facility] Basophils % 0.1 0.0 - 2.0 % 11/16/2023 12:52 PM EDT LABORATORY GL Immature Granulocytes % 1.8 0.0 - 2.0 % 11/16/2023 12:52 PM EDT LABORATORY [facility] Absolute Neutrophils 10.72(H) 1.80 - 7.70 K/uL 11/16/2023 12:52 PM EDT LABORATORY GL Absolute Lymphocytes 1.69 1.00 - 4.80 K/ul 11/16/2023 12:52 PM EDT LABORATORY GL Absolute Monocytes 0.89 0.00 - 1.10 K/uL 11/16/2023 12:52 PM EDT LABORATORY GL Absolute Eosinophils 0.29 0.00 - 0.70 K/uL 11/16/2023 12:52 PM EDT LABORATORY [facility] Absolute Basophils 0.02 0.00 - 0.20 K/uL 11/16/2023 12:52 PM EDT LABORATORY [facility] Absolute Immature Granulocytes 0.25(H) 0.00 - 0.20 K/uL 11/16/2023 12:52 PM EDT LABORATORY [facility] Blood Venous blood specimen / Unknown Venipuncture / Unknown 11/16/2023 12:36 PM EDT 11/16/2023 12:41 PM EDT [facility] LAB BLOOD ORDERABLE S LABORATORY [facility] [address] [place] [address] * (ABNORMAL) CBC (11/16/2023 12:36 PM EDT) WBC 13.86(H) 4.00 - 10.80 K/uL 11/16/2023 12:52 PM EDT LABORATORY [facility] RBC 2.24 3.85 - 5.15 M/uL 11/16/2023 12:52 PM EDT LABORATORY [facility] HGB 6.3(L) 12.0 - 15.3 g/dL 11/16/2023 12:52 PM EDT LABORATORY [facility] HCT 19.8(L) 36.0 - 45.2 % 11/16/2023 12:52 PM EDT LABORATORY [facility] MCV 88.4 81.5 - 97.5 fL 11/16/2023 12:52 PM EDT LABORATORY [facility] MCH 28.1 27.0 - 34.0 pg 11/16/2023 12:52 PM EDT LABORATORY [facility] MCHC 31.8 32.0 - 36.0 g/dL 11/16/2023 12:52 PM EDT LABORATORY [facility] RDW 14.9 11.5 - 15.5 % 11/16/2023 12:52 PM EDT LABORATORY [facility] PLT 470(H) 140 - 400 K/uL 11/16/2023 12:52 PM EDT LABORATORY [facility] MPV 10.2 6.6 - 11.1 fL 11/16/2023 12:52 PM EDT LABORATORY [facility] nRBCs 0 <=0 /100 WBCs 11/16/2023 12:52 PM EDT LABORATORY [facility] Blood Venous blood specimen / Unknown Venipuncture / Unknown 11/16/2023 12:36 PM EDT 11/16/2023 12:41 PM EDT Deng [facility] BLOOD ORDERABLE S Performing Organization Address City/[facility]/ZIP Co de Phone Number LABORATORY [address] [phone] * TYPE AND SCREEN (11/16/2023 12:36 PM EDT) ABO A 11/16/2023 1:32 PM EDT LABORATORY [facility] BLOOD BANK Rh Positive 11/16/2023 1:32 PM EDT LABORATORY [facility] BLOOD BANK Red Blood Cell Antibody Screen Negative 11/16/2023 1:32 PM EDT LABORATORY [facility] BLOOD BANK Specimen Expiration Date 11/19/2023 23:59 11/16/2023 1:32 PM EDT LABORATORY [facility] BLOOD BANK Blood Venous blood specimen / Unknown Venipuncture / Unknown 11/16/2023 12:36 PM EDT 11/16/2023 12:45 PM EDT Deng [facility] BLOOD BANK TEST ORDERABLES Performing Organization Address City/[facility]/ZIP Co de Phone Number LABORATORY [facility] BLOOD BANK [address] [place] [phone] * CULTURE, BLOOD (11/16/2023 12:36 PM EDT) Blood Culture Growth No growth 11/21/2023 1:01 PM EDT LABORATORY [facility] Blood Venous blood specimen / Unknown Venipuncture / Unknown 11/16/2023 12:36 PM EDT 11/16/2023 12:41 PM EDT Deng Ness LAB MICRO - GENERAL ORDERABLES Performing Organization Address [facility] de Phone Number LABORATORY [address] [address] * APTT (11/16/2023 12:36 PM EDT) aPTT 38 21 - 38 seconds 11/16/2023 1:22 PM EDT LABORATORY [facility] Blood Venous blood specimen / Unknown Venipuncture / Unknown 11/16/2023 12:36 PM EDT 11/16/2023 12:42 PM EDT Narrative LABORATORY [facility] - 11/16/2023 1:22 PM EDT Anticoagulation may affect testing. Refer to [employer] Test Catalog for a list of effects. [facility] LAB BLOOD ORDERABLE S Performing Organization Address [facility] Co de Phone Number LABORATORY [address] [address] * (ABNORMAL) PT INR (11/16/2023 12:36 PM EDT) Prothrombin Time 19.0(H) 11.6 - 15.2 seconds 11/16/2023 1:22 PM EDT LABORATORY [facility] INR 1.6(H) 0.8 - 1.2 11/16/2023 1:22 PM EDT LABORATORY [facility] Blood Venous blood specimen / Unknown Venipuncture / Unknown 11/16/2023 12:36 PM EDT 11/16/2023 12:42 PM EDT Narrative LABORATORY GL - 11/16/2023 1:22 PM EDT Warfarin Therapy INR: 2.0-3.0 conventional anticoagulation INR: 2.5-3.5 high intensity anticoagulation [facility]eng [facility] LAB BLOOD ORDERABLE S Performing Organization Address City/State/[facility] Co de Phone Number LABORATORY [address] [address] * (ABNORMAL) TROPONIN T, HIGH SENSITIVITY (11/16/2023 12:36 PM EDT) Pathologist [facility] [facility] [place] Troponin T, High Sensitivity 427(HH) <=14 ng/L 11/16/2023 1:17 PM EDT LABORATORY [facility] Blood Venous blood specimen / Unknown Venipuncture / Unknown 11/16/2023 12:36 PM EDT 11/16/2023 12:42 PM EDT [facility] LAB BLOOD ORDERABLE S Performing Organization Address [facility] de Phone Number LABORATORY [address] [address] * (ABNORMAL) PROCALCITONIN (11/16/2023 12:36 PM EDT) [facility] Procalcitonin 0.22(H) <0.10 ng/mL 11/16/2023 1:22 PM EDT LABORATORY [facility] Blood Venous blood specimen / Unknown Venipuncture / Unknown 11/16/2023 12:36 PM EDT 11/16/2023 12:46 PM EDT Narrative LABORATORY [facility] - 11/16/2023 1:22 PM EDT Less than 0.5 ng/mL: Low risk for progression to sepsis. Review patients condition for localized infections. 0.5 to 2.0 ng/mL: Intermediate risk for progresion to sepsis. Review underlying conditions. Recommend repeat PCT after 6 hours has elapsed. Greater than 2.0 ng/mL: high risk for progression to sepsis unless other causes are known. [facility] Performing Organization Address [facility] Co de Phone Number LABORATORY [address] [address] * (ABNORMAL) COMPREHENSIVE METABOLIC PANEL (11/16/2023 12:36 PM EDT) Pathologist [facility] [place] BUN 146(H) 6 - 20 mg/dL 11/16/2023 1:54 PM EDT LABORATORY [facility] CREATININE 3.7(H) 0.5 - 1.0 mg/dL 11/16/2023 1:54 PM EDT LABORATORY [facility] EGFR 13(L) >=60 mL/min 11/16/2023 1:54 PM EDT LABORATORY [facility] Comment:eGFR is calculated b ased on the CKD-EPI 2020 equation. SODIUM 129(L) 135 - 146 mmol/L 11/16/2023 1:54 PM EDT LABORATORY [facility] POTASSIUM 4.8 3.5 - 5.1 mmol/L 11/16/2023 1:54 PM EDT LABORATORY [facility] CHLORIDE 89(L) 98 - 107 mmol/L 11/16/2023 1:54 PM EDT LABORATORY [facility] CO2 23 22 - 32 mmol/L 11/16/2023 1:54 PM EDT LABORATORY [facility] ANION GAP 17(H) 7 - 15 mmol/L 11/16/2023 1:54 PM EDT LABORATORY [facility] GLUCOSE 190(H) 70 - 120 mg/dL 11/16/2023 1:54 PM EDT LABORATORY [facility] Albumin 2.0(L) 3.8 - 5.0 g/dL 11/16/2023 1:54 PM EDT LABORATORY [facility] AST 20 10 - 35 U/L 11/16/2023 1:54 PM EDT LABORATORY [facility] Alkaline Phosphatase 223(H) 35 - 130 U/L 11/16/2023 1:54 PM EDT LABORATORY [facility] Bilirubin, Total <0.2 <=1.2 mg/dL 11/16/2023 1:54 PM EDT LABORATORY [facility] CALCIUM 8.2(L) 8.4 - 10.2 mg/dL 11/16/2023 1:54 PM EDT LABORATORY [facility] Protein 6.3 6.0 - 8.3 g/dL 11/16/2023 1:54 PM EDT LABORATORY [facility] ALT 11 10 - 35 U/L 11/16/2023 1:54 PM EDT LABORATORY [facility] Blood Venous blood specimen / Unknown Venipuncture / Unknown 11/16/2023 12:36 PM EDT 11/16/2023 12:46 PM EDT Deng Ness LAB BLOOD ORDERABLE S Performing Organization Address [facility] Co de Phone Number LABORATORY [facility] [address] [place] [address] * CLOSTRIDIUM DIFFICILE, PCR (11/16/2023 12:36 PM EDT) Stool Consistency Semi-liquid 11/16/2023 1:48 PM EDT LABORATORY [facility] Clostridium difficile Result Negative. No C. difficile toxin B gene DNA detected by PCR (Amplified Probe). Negative 11/16/2023 1:48 PM EDT LABORATORY [facility] Stool Stool specimen / Unknown Non-blood Collection / Unknown 11/16/2023 12:36 PM EDT 11/16/2023 12:46 PM EDT Deng Jaya Thi DO LAB MICRO - GENERAL ORDERABLES Performing Organization Address [facility] de Phone Number LABORATORY [facility] [address] [place] [address] * EKG (11/16/2023 11:59 AM EDT) 11/16/2023 11:5 9 AM EDT Narrative Procedure Note Felicitas Skelton, - 11/16/2023 11:59 AM EDT REASON FOR STUDY: Sepsis (HCC) CONCLUSIONS: Wide QRS rhythm Left axis deviation Left ventricular hypertrophy with secondary QRS widening Abnormal ECG When compared with ECG of 03-Oct-2023 16:02, No significant change was found Ventricular Rate: 78 Atrial Rate: 45 QRS Duration: 172 QT/QTc: 442/503 ms P-R-T Ewen: 0 : -58 : 12 degrees Deng Naylorney EKG Performing Organization Address [facility] Co de Phone Number [facility] documented in this encounter Visit Diagnoses Diagnosis Severe sepsis with acute organ dysfunction (HCC)- Primary Unspecified septicemia Sepsis (HCC) Unspecified septicemia Screening for cardiovascular condition Screening for other and unspecified cardiovascular conditions Chest pain Chest pain, unspecified Anemia, unspecified type Unspecified open wound of lower back and pelvis without penetration into retroperitoneum, initial encounter Exposure to other specified factors, initial encounter Other specified soft tissue disorders Sclerosing mesenteritis (HCC) Sclerosing mesenteritis Pleural effusion, not elsewhere classified Gastrointestinal hemorrhage, unspecified Localized enlarged lymph nodes Enlargement of lymph nodes Abnormal findings on diagnostic imaging of other specified body structures Unspecified abdominal pain Emphysema, unspecified (HCC) Pain in right hip Pain in joint, pelvic region and thigh Abnormal findings on diagnostic imaging of limbs Other nonspecific (abnormal) findings on radiological and other examinations of body structure Generalized edema Edema Edema, unspecified type Lethargy Other malaise and fatigue Fever Fever, unspecified Diarrhea Black stools Nonspecific abnormal finding in stool contents Dizziness Dizziness and giddiness Fibromyalgia Mylagia and myositis, unspecified Acute osteomyelitis of calcaneum, right (HCC) Pressure injury of sacral region, unstageable ([facility]) Pain in both thighs Obesity, morbid (more than 100 lbs over ideal weight or BMI > 40) ([facility]) Morbid obesity Acute hyponatremia Hyposmolality and/or hyponatremia PERLITA (acute kidney injury) ([facility]) Acute kidney failure, unspecified RBBB (right bundle branch block) Right bundle branch block 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 Accelerated junctional rhythm Other specified cardiac dysrhythmias Anemia in stage 4 chronic kidney disease ([facility]) Anxiety Anxiety state, unspecified Redness and swelling of thigh Pressure injury of sacral region, stage 3 ([facility]) Bedridden Bed confinement status Right sided abdominal pain Abdominal pain, unspecified site documented in this encounter Administered Medications Inactive Administered Medications - up to 3 most recent administrations Medication Order MAR Action Action Date Dose Rate Site Acetaminophen (Tylenol) tab 975 mg 975 mg, Oral, Q6H PRN Fever >38C(100.5F), Pain, Mild, Pain, Moderate, Starting on Sun11/16/23 at 1609, Until Sun11/28/23 at 1929, Maximum of 4 grams (4000 mg) per day. Given 11/28/2023 8:58 AM EDT 975 mg Given 11/27/2023 11:30 PM EDT 975 mg Given 11/25/2023 8:51 AM EDT 975 mg amitriptyline (Elavil) tab 25 mg 25 mg, Oral, QHS, First dose (after last modification) on 11/17/23 at 2200, Until Discontinued Given 11/27/2023 9:11 PM EDT 25 mg Given 11/26/2023 10:55 PM EDT 25 mg Given 11/25/2023 9:54 PM EDT 25 mg Bumetanide (Bumex) tab 2 mg 2 mg, Oral, BID (.AM/PM), First dose on Sun11/17/23 at 0900, Until Discontinued Given 11/27/2023 9:11 PM EDT 2 mg Given 11/27/2023 8:51 AM EDT 2 mg Given 11/26/2023 10:55 PM EDT 2 mg Bumetanide (Bumex) tab 2 mg 2 mg, Oral, BID (.AM/PM), First dose (after last modification) on Sun11/28/23 at 2100, Until Discontinued cefepime in dextrose premix ivpb 2 g 2 g, IV Piggyback, ONCE, 1 dose, On Sun11/20/23 at 1245, Administer over 30 Minutes Rate Verify 11/20/2023 12:47 PM EDT 4 g/hr 100 mL/hr New Bag 11/20/2023 12:34 PM EDT 2 g 100 mL/hr cefepime in dextrose premix ivpb 2 g 2 g, IV Piggyback, Q12H, 10 doses, First dose on Sun11/20/23 at 2100, Last dose on Sun11/25/23 at 0900, Administer over 30 Minutes New Bag 11/20/2023 9:49 PM EDT 2 g 100 mL/hr cefepime in dextrose premix ivpb 2 g 2 g, IV Piggyback, Q24H, 9 doses, First dose (after last modification) on Sun11/21/23 at 2100, Last dose on Sun11/29/23 at 2100, Administer over 30 Minutes New Bag 11/21/2023 8:30 PM EDT 2 g 100 mL/hr cefTRIAXone in dextrose (Rocephin) IVPB 2 g IV Piggyback, 2 g, Q24H, 5 doses, First dose on Sun11/26/23 at 0900, Last dose on Sun11/30/23 at 0900, Administer over 30 Minutes New Bag 11/28/2023 9:11 AM EDT 2 g 100 mL/hr New Bag 11/27/2023 8:50 AM EDT 2 g 100 mL/hr New Bag 11/26/2023 10:14 AM EDT 2 g 100 mL/hr Cetirizine (ZyrTEC) oral solution 5 mg 5 mg, Oral, Daily(AM), First dose on 11/17/23 at 0900, Until Discontinued Given 11/28/2023 8:46 AM EDT 5 mg Given 11/27/2023 8:51 AM EDT 5 mg Given 11/26/2023 8:27 AM EDT 5 mg CYANOCOBALAMIN (vitamin B-12) tab 500 mcg 500 mcg, Oral, Daily(AM), First dose on 11/17/23 at 0900, Until Discontinued Given 11/28/2023 8:46 AM EDT 500 mcg Given 11/27/2023 8:51 AM EDT 500 mcg Given 11/26/2023 8:27 AM EDT 500 mcg dextrose 50% inj 25 mL 25 mL, IV Push, PRN Hypoglycemia, Other, For blood glucose 54 - 69 mg/dL or 70 - 100 mg/dL with symptoms AND patient is unresponsive, NPO, OR unable to swallow, Starting on Sun11/16/23 at 1636, Until Sun11/28/23 at 1929, Administer IV. Recheck blood glucose after 15 minutes. Notify provider. dextrose 50% inj 50 mL 50 mL, IV Push, PRN Hypoglycemia, Other, For blood glucose below 54 mg/dL AND patient unresponsive, NPO, OR unable to swallow, Starting on Sun11/16/23 at 1636, Until Sun11/28/23 at 1929, Administer IV. Recheck blood glucose in 15 minutes. Notify provider. doxycycline tab 100 mg 100 mg, Oral, Q12H, First dose on Sun11/26/23 at 0900, Last dose on Sun12/05/23 at 2100, For 10 days Given 11/28/2023 8:46 AM EDT 100 mg Given 11/27/2023 9:11 PM EDT 100 mg Given 11/27/2023 8:51 AM EDT 100 mg Epoetin Mark Anthony-epbx (Retacrit) [address]287 UNIT/ML inj 20,000 Units 20,000 Units, Subcutaneous, ONCE, On Sun11/18/23 at 1730, For 1 dose Given 11/18/2023 5:27 PM EDT 20,000 Units Abdomen Left Upper Epoetin Mark Anthony-epbx (Retacrit) 2000 UNIT/ML inj 2,000 Units 2,000 Units, IV Push, ONCE, On Sun11/20/23 at 1345, For 1 dose Given 11/20/2023 5:07 PM EDT 2,000 Units Famotidine (Pepcid) inj 20 mg 20 mg, IV Push, ONCE, On Sun11/23/23 at 1030, For 1 dose, Give IV push over 2 minutes. Given 11/23/2023 10:17 AM EDT 20 mg fentaNYL (PF) inj 25 mcg 25 mcg, IV Push, ONCE, On Sun11/18/23 at 1115, For 1 dose, When given IV Push its recommended that the dose be given over 3 to 5 minutes. Given 11/18/2023 10:59 AM EDT 25 mcg Ferrous Sulfate (Feosol) tab 325 mg 325 mg, Oral, DAILY NOON, First dose on Sun11/17/23 at 1200, Until Discontinued, This med should NOT be Crushed or Chewed Given 11/28/2023 12:47 PM EDT 325 mg Given 11/27/2023 11:43 AM EDT 325 mg Given 11/26/2023 12:23 PM EDT 325 mg folic acid tab 1 mg 1 mg, Oral, Daily(AM), First dose on Sun11/17/23 at 0900, Until Discontinued Given 11/28/2023 8:46 AM EDT 1 mg Given 11/27/2023 8:51 AM EDT 1 mg Given 11/26/2023 8:27 AM EDT 1 mg Furosemide (Lasix) inj 40 mg 40 mg, IV Push, ONCE, On Sun11/16/23 at 1745, For 1 dose Given 11/16/2023 5:43 PM EDT 40 mg Furosemide (Lasix) inj 40 mg 40 mg, IV Push, ONCE, On Sun11/17/23 at 0500, For 1 dose Given 11/17/2023 4:15 AM EDT 40 mg Gabapentin (Neurontin) cap 200 mg 200 mg, Oral, TID(AM/NOON/HS), First dose on Sun11/17/23 at 0600, Until Discontinued Given 11/17/2023 5:13 AM EDT 200 mg glucagon (Glucagen) inj 1 mg 1 mg, Intramuscular, PRN Hypoglycemia, Other, If patient is unresponsive, or NPO and has no IV access, Starting on Sun11/16/23 at 1636, Until Sun11/28/23 at 1928, NPO and no IV access with either [...] patient alert WITH difficulty chewing/swallowing, Starting on Sun11/16/23 at 1636, Until Sun11/28/23 at 1928, Administer gel. Recheck blood glucose after 15 minutes. Notify provider. 37.5 gram tube = 15 grams glucose = 1 each Glucose (Glutose 15) 40 % gel 30 g of glucose 30 g of glucose, Oral, PRN Hypoglycemia (low sugar), Other, For blood glucose below 54 mg/dL AND patient alert WITH difficulty chewing/swallowing, Starting on Sun11/16/23 at 1636, Until Sun11/28/23 at 1928, Administer gel. Recheck blood glucose after 15 minutes. Notify provider. 37.5 gram tube = 15 grams glucose = 1 each glucose chew tab 16 g 16 g, Oral, PRN Hypoglycemia, Other, For blood glucose 54 - 69 mg/dL or 70 - 100 mg/dL with symptoms and patient alert without difficulty chewing/swallowing., Starting on Sun11/16/23 at 1636, Until Sun11/28/23 at 192 hEParin inj 7,500 Units 7,500 Units, Subcutaneous, Q8H, First dose on Sun11/26/23 at 2200, Until Discontinued Given 11/28/2023 5:25 AM EDT 7,500 Units Abdomen Right Lower Given 11/27/2023 10:14 PM EDT 7,500 Units Abdomen Left Upper Given 11/27/2023 2:17 PM EDT 7,500 Units A bdomen Right Lower house antacid (Mi-Acid II) oral susp 15 mL 15 mL, Oral, Q6H PRN Indigestion, Starting on Sun11/21/23 at 1959, Until Sun11/28/23 at 1929, SHADORCAS WELL Given 11/24/2023 9:34 AM EDT 15 mL Given 11/21/2023 8:24 PM EDT 15 mL hydrOXYzine HCl tab 25 mg 25 mg, Oral, ONCE, On Sun11/20/23 at 0130, For 1 dose Given 11/20/2023 1:11 AM EDT 25 mg hydrOXYzine HCl tab 25 mg 25 mg, Oral, ONCE, On Sun11/20/23 at 1645, For 1 dose Given 11/20/2023 4:43 PM EDT 25 mg hydrOXYzine HCl tab 25 mg 25 mg, Oral, TID PRN Anxiety, Starting on Sun11/21/23 at 0346, Until Sun11/28/23 at 192 Given 11/26/2023 11:25 PM EDT 25 mg Given 11/26/2023 10:09 AM EDT 25 mg Given 11/24/2023 9:08 AM EDT 25 mg insulin aspart (NovoLOG) inj Subcutaneous, W/MEALS AND HS, First dose (after last modification) on Sun11/16/23 at 2200, Until Discontinued, MEDIUM DOSE (Usual starting dose): Sliding Scale Correctional insulin may be given if the patient is NPO. Dose based on standard build from Insulin Calculator. Do not modify insulin doses in administration instructions!, Glucose less than 70 instructions: Obtain STAT lab blood glucose and call covering provider., Glucose 80-150 (units): 0, Glucose 151-200 (units): 2, Glucose 201-250 (units): 4, Glucose 251-300 (units): 6, Glucose greater than 300 (units): 8, Glucose greater than 300 instructions: Give suggested insulin dose and call covering provider. Given 11/28/2023 12:47 PM EDT 4 Units Arm Right Upper Given 11/27/2023 10:14 PM EDT 2 Units A rm Left Upper Given 11/27/2023 5:50 PM EDT 2 Units Ab domen Left Lower Insulin Glargine (Lantus) inj 10 Units 10 Units, Subcutaneous, HSINSULIN, First dose on Sun11/17/23 at 2200, Until Discontinued, "IF DOSE IS HELD- NOTIFY COVERING PROVIDER!" Given 11/27/2023 9:11 PM EDT 10 Units Abdom en Left Lower Given 11/26/2023 11:38 PM EDT 10 Units A bdomen Right Lower Given 11/25/2023 9:54 PM EDT 10 Units Ar m Left Upper ISOLYTE 1,600 mL bolus infusion (SEE ADMIN INSTRUCTIONS) Intravenous, at 1,200 mL/hr, Obtain vital signs q15 min x 4 beginning within the hour after fluid bolus end time, then resume vital signs as ordered. Estimated body mass index is 46.09 kg/m as calculated from the following: Height as of 10/03/23: 1.575 m (5' 2"). Weight as of this encounter: 114.3 kg (252 lb). [place] body weight was utilized to determine target ordered volume. Plasma-LYTE 148, isolyte-S, and isolyte-S pH 7.4 are considered equivalent - including for MAR barcode scanning., ONCE, 1 dose, On Sun11/16/23 at 1300 New Bag 11/16/2023 1:00 PM EDT 1,600 mL 1200 mL/hr levothyroxine (Levoxyl) tab 175 mcg 175 mcg, Oral, AT 0630, First dose on 11/17/23 at 0630, Until Discontinued Given 11/28/2023 5:26 AM EDT 175 mcg Given 11/27/2023 6:24 AM EDT 175 mcg Given 11/26/2023 6:28 AM EDT 175 mcg LiquaCel 30 mL, Oral, BID (.AM/PM), First dose on 11/17/23 at 2100, Until Discontinued Given 11/28/2023 8:46 AM EDT 30 mL Given 11/27/2023 9:11 PM EDT 30 mL Given 11/27/2023 8:51 AM EDT 30 mL magnesium sulfate 1 g in d5w 100mL LOCKED DOSE 1 g, IV Piggyback, ONCE, 1 dose, On Sun11/21/23 at 2145, Administer over 60 Minutes Restarted 11/21/2023 10:55 PM EDT 1 g/hr 100 mL/hr New Bag 11/21/2023 10:18 PM EDT 1 g 100 mL/hr melatonin tab 3 mg 3 mg, Oral, HS PRN Sleep, Starting on 11/18/23 at 0223, Until Sun11/28/23 at 1929 Given 11/26/2023 11:25 PM EDT 3 mg Given 11/19/2023 9:59 PM EDT 3 mg Given 11/18/2023 2:44 AM EDT 3 mg meropenem (Merrem) IVPB 1,000 mg 1,000 mg, IV Piggyback, ONCE, 1 dose, On Sun11/16/23 at 1415 New Bag 11/16/2023 2:05 PM EDT 1,000 mg 100 mL/hr meropenem in NSS (Merrem) ivpb 500 mg 500 mg, IV Piggyback, [id number], 10 doses, First dose on Sun11/17/23 at 0200, Last dose on Sun11/21/23 at 1400 New Bag 11/20/2023 1:18 AM EDT 500 mg 100 mL/hr New Bag 11/19/2023 2:42 PM EDT 500 mg 100 mL/hr New Bag 11/19/2023 2:24 AM EDT 500 mg 100 mL/hr metOLazone (Zaroxolyn) tab 2.5 mg 2.5 mg, Oral, Daily(AM), First dose on Sun11/17/23 at 0900, Until Discontinued Given 11/18/2023 8:07 AM EDT 2.5 mg Given 11/17/2023 9:02 AM EDT 2.5 mg morphine sulfate inj 1 mg 1 mg, IV Push, Q3H PRN Pain, Severe, Starting on Sun11/16/23 at 1609, Until Sun11/28/23 at 1929 Given 11/27/2023 6:22 AM EDT 1 mg Given 11/26/2023 11:25 PM EDT 1 mg Given 11/26/2023 5:30 PM EDT 1 mg NSS 0.9% 1,000 mL bolus infusion Intravenous, Administer entire volume within 60 minutes or less., ONCE, 1 dose, On Sun11/28/23 at 0915 New Bag 11/28/2023 9:09 AM EDT 1,000 mL 10 00 mL/hr oxyCODONE (Oxy IR) tab 5 mg 5 mg, Oral, ONCE, On Sun11/16/23 at 1345, For 1 dose Given 11/16/2023 1:35 PM EDT 5 mg Pantoprazole (Protonix) 80 mg in NSS 100 mL ivpb 80 mg, IV Piggyback, ONCE, 1 dose, On Sun11/16/23 at 1745, Administer over 15 Minutes New Bag 11/16/2023 6:52 PM EDT 80 mg 420 mL/hr Pantoprazole (Protonix) 80 mg in NSS 500 mL INFUSION Intravenous, at 50 mL/hr, CONTINUOUS, Starting on Sun11/16/23 at 1800, Until 11/17/23 at 1010 Rate Verify 11/17/2023 6:44 AM EDT 8 mg/hr 50 mL/hr Restarted 11/17/2023 5:58 AM EDT 8 mg/hr 50 mL/hr New Bag 11/17/2023 5:35 AM EDT 8 mg/hr 50 mL/hr pantoprazole (Protonix) tab 40 mg 40 mg, Oral, BEFORE BREAKFAST, First dose on Sun11/18/23 at 0745, Until Discontinued, This med should NOT be Crushed or Chewed Given 11/28/2023 8:46 AM EDT 40 mg Given 11/27/2023 6:24 AM EDT 40 mg Given 11/26/2023 6:28 AM EDT 40 mg Polyethylene Glycol 3350 (Miralax) oral powder 17 g 17 g (1 Packet), Oral, DAILY PRN Constipation, Starting on Sun11/22/23 at 1613, Until Sun11/28/23 at 1929, Mix in 8 oz of water, juice, soda, coffee, or tea. Given 11/23/2023 8:48 AM EDT 17 g Given 11/22/2023 5:05 PM EDT 17 g potassium chloride ER tab 40 mEq 40 mEq, Oral, ONCE, On Sun11/23/23 at 1030, For 1 dose, This med should NOT be Crushed or Chewed Given 11/23/2023 10:17 AM EDT 40 mEq potassium chloride ER tab 40 mEq 40 mEq, Oral, BID (.AM/PM), First dose on Sun11/25/23 at 0845, Until Discontinued, This med should NOT be Crushed or Chewed Given 11/26/2023 10:55 PM EDT 40 mEq Given 11/25/2023 9:54 PM EDT 40 mEq Given 11/25/2023 8:51 AM EDT 40 mEq prochlorperazine (Compazine) inj 10 mg 10 mg, IV Push, Q6H PRN Nausea, Vomiting, Starting on Sun11/23/23 at 1432, Until Sun11/28/23 at 1929 Given 11/24/2023 4:47 PM EDT 10 mg Given 11/23/2023 4:28 PM EDT 10 mg Simvastatin (Zocor) tab 40 mg 40 mg, Oral, Daily(AM), First dose on Sun11/17/23 at 0900, Until Discontinued Given 11/17/2023 9:02 AM EDT 40 mg sodium chloride 0.9 % flush/inj 3 mL 3 mL, IV Push, PRN Other, Line Patency, Starting on Sun11/16/23 at 1559, Until Sun11/28/23 at 1929, Do not flush if lock, PICC, or central line not in place, IV infusing or unable to flush trimethobenzamide (Tigan) inj 100 mg 100 mg, Intramuscular, QID PRN Nausea, Vomiting, Starting on Sun11/21/23 at 2002, Until Sun11/28/23 at 1929 trimethobenzamide (Tigan) inj 100 mg 100 mg, Intramuscular, ONCE, On Sun11/23/23 at 1015, For 1 dose Given 11/23/2023 10:15 AM EDT 100 mg Arm Left Upper vancomycin (50 mg/ml) oral solution 125 mg 125 mg, Oral, Q6H, First dose on Sun11/21/23 at 1200, Last dose on Sun12/05/23 at 0600, For 14 days Given 11/28/2023 12:51 PM EDT 125 mg Given 11/28/2023 5:25 AM EDT 125 mg Given 11/27/2023 11:30 PM EDT 125 mg Vancomycin (Vancocin) 2000 mg in NSS 500 mL ivpb 2,000 mg, IV Piggyback, ONCE, 1 dose, On Sun11/16/23 at 1415 New Bag 11/16/2023 2:42 PM EDT 2,000 mg 285 mL/hr documented in this encounter Active and Recently Administered Medications Times are shown in EDT. Scheduled Medication Order 11/26/2023 11/27/2023 11/28/2023 amitriptyline (Elavil) tab 25 mg 25 mg, Oral, QHS, First dose (after last modification) on Sun11/17/23 at 2200, Until Discontinued 2254 (Given - Provider: Chuckie Villarreal RN) 2110 (Given - Provider: Maribel Umana, SARTHAK) Bumetanide (Bumex) tab 2 mg (CANCELED) 2 mg, Oral, BID (.AM/PM), First dose on 11/17/23 at 0900, Until Discontinued 826 (Given - Provider: Zoraida Springer RN)2254 (Given - Provider: Chuckie Villarreal RN) 850 (Given - Provider: Jorge A Radford RN)2110 (Given - Provider: Maribel Umana, SARTHAK) Bumetanide (Bumex) tab 2 mg 2 mg, Oral, BID (.AM/PM), First dose (after last modification) on Sun11/28/23 at 2100, Until Discontinued cefTRIAXone in dextrose (Rocephin) IVPB 2 g IV Piggyback, 2 g, Q24H, 5 doses, First dose on Sun11/26/23 at 0900, Last dose on Sun11/30/23 at 0900, Administer over 30 Minutes 1014 (New Bag - Provider: Ifrah Jarrett LPN)1044 (Stopped - Provider: Zoraida Springer RN) 0850 (New Bag - Provider: Jorge A Radford RN)0920 (Stopped - Provider: Jorge A Radford RN) 0911 (New Bag - Provider: Evelina Nayak LPN)192 (Due: Stopped) Cetirizine (ZyrTEC) oral solution 5 mg 5 mg, Oral, Daily(AM), First dose on 11/17/23 at 0900, Until Discontinued 826 (Given - Provider: Zoraida Springer RN) 0851 (Given - Provider: Jorge A Radford RN) 0846 (Given - Provider: Evelina Nayak LPN) CYANOCOBALAMIN (vitamin B-12) tab 500 mcg 500 mcg, Oral, Daily(AM), First dose on 11/17/23 at 0900, Until Discontinued 826 (Given - Provider: Zoraida Springer RN) 0851 (Given - Provider: Jorge A Radford RN) 0846 (Given - Provider: Evelina Nayak LPN) doxycycline tab 100 mg 100 mg, Oral, Q12H, First dose on Sun11/26/23 at 0900, Last dose on Sun12/05/23 at 2100, For 10 days 1008 (Given - Provider: Ifrah Jarrett LPN)2255 (Given - Provider: Chuckie Villarreal RN) 0851 (Given - Provider: Jorge A Radford RN)2111 (Given - Provider: Maribel Umana RN) 0846 (Given - Provider: Evelina Nayak LPN) Ferrous Sulfate (Feosol) tab 325 mg 325 mg, Oral, DAILY NOON, First dose on Sun11/17/23 at 1200, Until Discontinued, This med should NOT be Crushed or Chewed 1223 (Given - Provider: Zoraida Springer RN) 1143 (Given - Provider: Jorge A Radford RN) 1247 (Given - Provider: Evelina Nayak LPN) folic acid tab 1 mg 1 mg, Oral, Daily(AM), First dose on Sun11/17/23 at 0900, Until Discontinued 0827 (Given - Provider: Zoraida Springer RN) 0851 (Given - Provider: Jorge A Radford RN) 0846 (Given - Provider: Evelina Nayak LPN) hEParin inj 7,500 Units 7,500 Units, Subcutaneous, Q8H, First dose on Sun11/26/23 at 2200, Until Discontinued 2254 (Given - Provider: Chuckie Villarreal RN) 0624 (Given - Provider: Chuckie Villarreal RN)1417 (Given - Provider: Jorge A Radford RN)2214 (Given - Provider: Maribel Umana RN) 0525 (Given - Provider: Kajal Tse RN)1400 (Due) insulin aspart (NovoLOG) inj Subcutaneous, W/MEALS AND HS, First dose (after last modification) on Sun11/16/23 at 2200, Until Discontinued, MEDIUM DOSE (Usual starting dose): Sliding Scale Correctional insulin may be given if the patient is NPO. Dose based on standard build from Insulin Calculator. Do not modify insulin doses in administration instructions!, Glucose less than 70 instructions: Obtain STAT lab blood glucose and call covering provider., Glucose 80-150 (units): 0, Glucose 151-200 (units): 2, Glucose 201-250 (units): 4, Glucose 251-300 (units): 6, Glucose greater than 300 (units): 8, Glucose greater than 300 instructions: Give suggested insulin dose and call covering provider. 0800 (No Insulin - Provider: Zoraida Springer RN - Reason: Parameter(s) Not Met - Comment: BSBG 134)1221 (Given - Provider: Zoraida Springer RN - Comment: BSBG 253)1700 (No Insulin - Provider: Ann Lopez LPN - Reason: Parameter(s) Not Met)2256 (Given - Provider: Chuckie Villarreal RN) 0800 (No Insulin - Provider: Jorge A Radford RN - Reason: Parameter(s) Not Met)1143 (Given - Provider: Jorge A Radford RN)1750 (Given - Provider: Jorge A Radford RN)2214 (Given - Provider: Maribel Umana RN) 0800 (No Insulin - Provider: Evelina Nayak LPN - Reason: Parameter(s) Not Met)1247 (Given - Provider: Evelina Nayak LPN) Insulin Glargine (Lantus) inj 10 Units 10 Units, Subcutaneous, HSINSULIN, First dose on 11/17/23 at 2200, Until Discontinued, "IF DOSE IS HELD- NOTIFY COVERING PROVIDER!" 233 (Given - Provider: Chuckie Villarreal RN) 2110 (Given - Provider: Maribel Umana RN) levothyroxine (Levoxyl) tab 175 mcg 175 mcg, Oral, AT 0630, First dose on 11/17/23 at 0630, Until Discontinued 0628 (Given - Provider: Smitha Toledo RN) 0624 (Given - Provider: Chuckie Villarreal RN) 0526 (Given - Provider: Kajal Tse RN) LiquaCel 30 mL, Oral, BID (.AM/PM), First dose on 11/17/23 at 2100, Until Discontinued 08 (Given - Provider: Zoraida Springer RN)225 (Given - Provider: Chuckie Villarreal RN) 0851 (Given - Provider: Jorge A Radford RN)2110 (Given - Provider: Maribel Umana RN) 0846 (Given - Provider: Evelina Nayak LPN) NSS 0.9% 1,000 mL bolus infusion (COMPLETED) Intravenous, Administer entire volume within 60 minutes or less., ONCE, 1 dose, On Sun11/28/23 at 0915 0909 (New Bag - Provider: Evelina Nayak LPN) pantoprazole (Protonix) tab 40 mg 40 mg, Oral, BEFORE BREAKFAST, First dose on Sun11/18/23 at 0745, Until Discontinued, This med should NOT be Crushed or Chewed 0628 (Given - Provider: Smitha Toledo RN) 0624 (Given - Provider: Chuckie Villarreal RN) 0846 (Given - Provider: Evelina Nayak LPN) potassium chloride ER tab 40 mEq (CANCELED) 40 mEq, Oral, BID (.AM/PM), First dose on Sun11/25/23 at 0845, Until Discontinued, This med should NOT be Crushed or Chewed 0900 (Not Given - Provider: Zoraida Springer RN - Reason: Parameter(s) Not Met - Comment: per provider, K WNL)2255 (Given - Provider: Chuckie Villarreal RN) 0900 (Not Given - Provider: Jorge A Radford RN - Reason: Other- Please add reason in Comments - Comment: hold per provider)2100 (Not Given - Provider: Maribel Umana RN - Reason: Order Discontinued) vancomycin (50 mg/ml) oral solution 125 mg 125 mg, Oral, Q6H, First dose on Sun11/21/23 at 1200, Last dose on Sun12/05/23 at 0600, For 14 days 0005 (Given - Provider: Smitha Toledo RN)0509 (Given - Provider: Smitha Toledo RN)1221 (Given - Provider: Zoraida Springer RN)1700 (Given - Provider: Ann Lopez LPN)2338 (Given - Provider: Chuckie Villarreal RN) 0624 (Given - Provider: Chuckie Villarreal RN)1143 (Given - Provider: Jorge A Radford RN)1751 (Given - Provider: Jorge A Radford RN)2330 (Given - Provider: Kajal Tse RN) 0525 (Given - Provider: Kaajl Tse RN)4676 (Given - Provider: Evelina Nayak LPN) PRN Medication Order 11/26/2023 11/27/2023 11/28/2023 Acetaminophen (Tylenol) tab 975 mg 975 mg, Oral, Q6H PRN Fever >38C(100.5F), Pain, Mild, Pain, Moderate, Starting on Sun11/16/23 at 1609, Until Sun11/28/23 at 1928, Maximum of 4 grams (4000 mg) per day. 6860 (Given - Provider: Kajal Tse RN) 6235 (Given - Provider: Evelina Nayak LPN) Albuterol Sulfate (Proventil) (2.5 MG/3ML) 0.083% inhalation solution 2.5 mg 2.5 mg, Nebulizer, Q4H PRN Dyspnea, Starting on Sun11/16/23 at 1637, Until Sun11/28/23 at 1928 dextrose 50% inj 25 mL 25 mL, IV Push, PRN Hypoglycemia, Other, For blood glucose 54 - 69 mg/dL or 70 - 100 mg/dL with symptoms AND patient is unresponsive, NPO, OR unable to swallow, Starting on Sun11/16/23 at 1636, Until Sun11/28/23 at 1928, Administer IV. Recheck blood glucose after 15 minutes. Notify provider. dextrose 50% inj 50 mL 50 mL, IV Push, PRN Hypoglycemia, Other, For blood glucose below 54 mg/dL AND patient unresponsive, NPO, OR unable to swallow, Starting on Sun11/16/23 at 1636, Until Sun11/28/23 at 1928, Administer IV. Recheck blood glucose in 15 minutes. Notify provider. glucagon (Glucagen) inj 1 mg 1 mg, Intramuscular, PRN Hypoglycemia, Other, If patient is unresponsive, or NPO and has no IV access, Starting on Sun11/16/23 at 1636, Until Sun11/28/23 at 1928, NPO and no IV access with either [...] patient alert WITH difficulty chewing/swallowing, Starting on Sun11/16/23 at 1636, Until Sun11/28/23 at 1928, Administer gel. Recheck blood glucose after 15 minutes. Notify provider. 37.5 gram tube = 15 grams glucose = 1 each Glucose (Glutose 15) 40 % gel 30 g of glucose 30 g of glucose, Oral, PRN Hypoglycemia (low sugar), Other, For blood glucose below 54 mg/dL AND patient alert WITH difficulty chewing/swallowing, Starting on Sun11/16/23 at 1636, Until Sun11/28/23 at 1928, Administer gel. Recheck blood glucose after 15 minutes. Notify provider. 37.5 gram tube = 15 grams glucose = 1 each glucose chew tab 16 g 16 g, Oral, PRN Hypoglycemia, Other, For blood glucose 54 - 69 mg/dL or 70 - 100 mg/dL with symptoms and patient alert without difficulty chewing/swallowing., Starting on Sun11/16/23 at 1636, Until Sun11/28/23 at 1928 house antacid (Mi-Acid II) oral susp 15 mL 15 mL, Oral, Q6H PRN Indigestion, Starting on Sun11/21/23 at 1959, Until Sun11/28/23 at 1928, SHAKE WELL hydrOXYzine HCl tab 25 mg 25 mg, Oral, TID PRN Anxiety, Starting on Sun11/21/23 at 0346, Until Sun11/28/23 at 1928 1009 (Given - Provider: Ifrah Jarrett LPN)2325 (Given - Provider: Chuckie Villarreal RN) melatonin tab 3 mg 3 mg, Oral, HS PRN Sleep, Starting on 11/18/23 at 0223, Until Sun11/28/23 at 1928 2325 (Given - Provider: Chuckie Villarreal RN) morphine sulfate inj 1 mg 1 mg, IV Push, Q3H PRN Pain, Severe, Starting on Sun11/16/23 at 1609, Until Sun11/28/23 at 1928 0509 (Given - Provider: Smitha Toledo RN)1429 (Given - Provider: Zoraida Springer RN - Comment: wasted with Shavonne Dempsey RN)1730 (Given - Provider: Dread Daniel RN)2325 (Given - Provider: Chuckie Villarreal, SARTHAK) 0622 (Given - Provider: Chuckie Villarreal RN) Polyethylene Glycol 3350 (Miralax) oral powder 17 g 17 g (1 Packet), Oral, DAILY PRN Constipation, Starting on Kristy 11/22/23 at 1613, Until Sun11/28/23 at 1929, Mix in 8 oz of water, juice, soda, coffee, or tea. prochlorperazine (Compazine) inj 10 mg 10 mg, IV Push, Q6H PRN Nausea, Vomiting, Starting on Sun11/23/23 at 1432, Until Sun11/28/23 at 1929 sodium chloride 0.9 % flush/inj 3 mL 3 mL, IV Push, PRN Other, Line Patency, Starting on Sun11/16/23 at 1559, Until Sun11/28/23 at 1929, Do not flush if lock, PICC, or central line not in place, IV infusing or unable to flush trimethobenzamide (Tigan) inj 100 mg 100 mg, Intramuscular, QID PRN Nausea, Vomiting, Starting on Sun11/21/23 at 2002, Until Sun11/28/23 at 1929 documented in this encounter Additional Health Concerns Infection Onset Date Last Indicated Resolved Time C. difficile 11/06/2023 11/06/2023 C. difficile Rule-Out 11/16/2023 11/16/20232023 1:48 PM EDT Gastrointestinal Rule-Out 11/17/2023 11/17/2023 6:04 PM EDT documented as of this encounter Advance Directives Documents on File Type Date Recorded Patient Communications Coordinator Expl anation POLST 11/19/2023 signed on 08/21 [place] [facility] FOR LIFE-SUSTAINING TREATMENT POLST 10/10/2023 signed on 08/21 [place] [facility] FOR LIFE-SUSTAINING TREATMENT POLST 08/16/2023 signed on 08/12 [place] [facility] FOR LIFE-SUSTAINING TREATMENT POLST 06/17/2023 [place] [facility] FOR LIFE-SUSTAINING TREATMENT; sign on 06/14/23 * Full Code (Latest Code Status on File) Date Activated Date Inactivated Comments 11/16/2023 4:02 PM 11/28/2023 7:29 PM This order re flects the patients wishes and were consensually agreed upon. Question Answer Comments Discussion of Advance Direct terry occurred with: Patient Does the patient have a Living Will? Yes, in [place] rt and reviewed as current Does the patient have Health Care Power of Biotech Production Specialist? Yes, in chart and reviewed as current * Full Code Date Activated Date Inactivated Comments 10/03/2023 7:52 PM 10/09/2023 1:58 PM This order r eflects the patients wishes and were consensually agreed upon. Question Answer Comments Discussion of Advance Directives occurred with: Patient * Full Code Date Activated Date Inactivated Comments 08/15/2023 6:07 AM 08/21/2023 7:19 PM This order re flects the patients wishes and were consensually agreed upon. Question Answer Comments Discussion of Advance Directives occurred with: Patient * Full Code Date Activated Date Inactivated Comments 06/17/2023 9:38 PM 06/25/2023 5:13 PM This order r eflects the patients wishes and were consensually agreed upon. Question Answer Comments Discussion of Advance Directives occurred with: Patient * Full Code Date Activated Date Inactivated Comments 06/03/2023 2:50 AM 06/13/2023 7:19 PM This order re flects the patients wishes and were consensually agreed upon. Question Answer Comments Discussion of Advance Directives occurred with: Patient Care Teams Wine Bottle Inspector Relationship Specialty Start Date End Date Paco Cordero MD [address] [place] [id number] PCP - General Family Medicine 09/10/23 documented as of this encounter
--- OUTSIDE RECORDS SUMMARY | 2023-12-08 02:44 | External Medical Summary ---
Author Name Unknown Address Unknown Organization : Laboratory Report Ordering Provider Test Date Status JOEY GARCIA 11/26/2023 07:27:09 Final Observation Date Value Abnormality Reference (Units ) Status Glucose Point of Care 11/26/2023 07:27:09 134 Above high normal 70-120 (mg/dL) Final Performing Location
--- OUTSIDE RECORDS SUMMARY | 2023-12-08 02:44 | External Medical Summary ---
Author Name Unknown Address Unknown Organization : Laboratory Report Ordering Provider Test Date Status JOEY GARCIA 11/28/2023 11:20:29 Final Observation Date Value Abnormality Reference (Units ) Status Glucose Point of Care 11/28/2023 11:20:29 211 Above high normal 70-120 (mg/dL) Final Performing Location
--- OUTSIDE RECORDS SUMMARY | 2023-12-08 02:44 | External Medical Summary ---
Author Name Unknown Address Unknown Organization K1F:LABORATORY [facility] - [address] [place] [address] Laboratory Report Ordering Provider Test Date Status JOEY GARCIA 11/27/2023 08:49:00 Final Observation Date Value Abnormality Reference (Units ) Status BUN 11/27/2023 08:49:00 87 Above high normal 6-20 (mg/dL) Final Creatinine 11/27/2023 08:49:00 2.1 Above high normal 0.5-1.0 (mg/dL) Final Glomerular filtration rate/1.73 sq M.predicted [Volume Rate/Area] in Serum, Plasma or Blood by Creatinine-based formula (CKD-EPI) 11/27/2023 08:49:00 26 Below low normal >=60 (mL/min) Final eGFR is calculated based on the CKD-EPI 2020 equation. Sodium 11/27/2023 08:49:00 132 Below low normal 135 -146 (mmol/L) Final Potassium 11/27/2023 08:49:00 4.7 3.5-5.1 (m mol/L) Final Cl 11/27/2023 08:49:00 93 Below low normal 98- 107 (mmol/L) Final CO2 11/27/2023 08:49:00 24 22-32 (mmo l/L) Final Anion gap 11/27/2023 08:49:00 15 7-15 (mmol /L) Final Glucose 11/27/2023 08:49:00 108 70-120 (mg /dL) Final Calcium 11/27/2023 08:49:00 9.7 8.4-10.2 ( mg/dL) Final Performing Location LABORATORY [facility] - [address] [place] [address]
--- OUTSIDE RECORDS SUMMARY | 2023-12-08 02:44 | External Medical Summary ---
Author Name Unknown Address Unknown Organization K1F:LABORATORY [facility] - [address] [place] [address] Laboratory Report Ordering Provider Test Date Status JOEY GARCIA 11/26/2023 07:07:00 Final Observation Date Value Abnormality Reference (Units ) Status BUN 11/26/2023 07:07:00 93 Above high normal 6-20 (mg/dL) Final Creatinine 11/26/2023 07:07:00 2.2 Above high normal 0.5-1.0 (mg/dL) Final Glomerular filtration rate/1.73 sq M.predicted [Volume Rate/Area] in Serum, Plasma or Blood by Creatinine-based formula (CKD-EPI) 11/26/2023 07:07:00 25 Below low normal >=60 (mL/min) Final eGFR is calculated based on the CKD-EPI 2020 equation. Sodium 11/26/2023 07:07:00 136 135-146 (m mol/L) Final Potassium 11/26/2023 07:07:00 Final Specimen too hemolyzed. Reor maricruz if needed.
Cl 11/26/2023 07:07:00 95 Below low normal 98- 107 (mmol/L) Final CO2 11/26/2023 07:07:00 24 22-32 (mmo l/L) Final Anion gap 11/26/2023 07:07:00 17 Above high normal 7- 15 (mmol/L) Final Glucose 11/26/2023 07:07:00 129 Above high normal 70 -120 (mg/dL) Final Calcium 11/26/2023 07:07:00 8.8 8.4-10.2 ( mg/dL) Final Performing Location LABORATORY [facility] - [address] [place] [address]
--- OUTSIDE RECORDS SUMMARY | 2023-12-08 02:44 | External Medical Summary ---
Author Name Unknown Address Unknown Organization : Laboratory Report Ordering Provider Test Date Status JOEY GARCIA 11/28/2023 08:00:03 Final Observation Date Value Abnormality Reference (Units ) Status Glucose Point of Care 11/28/2023 08:00:03 121 Above high normal 70-120 (mg/dL) Final Performing Location
--- OUTSIDE RECORDS SUMMARY | 2023-12-08 02:44 | External Medical Summary ---
Author Name Unknown Address Unknown Organization : Laboratory Report Ordering Provider Test Date Status JOEY GARCIA 11/27/2023 21:35:10 Final Observation Date Value Abnormality Reference (Units ) Status Glucose Point of Care 11/27/2023 21:35:10 161 Above high normal 70-120 (mg/dL) Final Performing Location
--- OUTSIDE RECORDS SUMMARY | 2023-12-08 02:44 | External Medical Summary ---
Author Name Unknown Address Unknown Organization : Laboratory Report Ordering Provider Test Date Status JOEY GARCIA 11/26/2023 16:28:14 Final Observation Date Value Abnormality Reference (Units ) Status Glucose Point of Care 11/26/2023 16:28:14 127 Above high normal 70-120 (mg/dL) Final Performing Location
--- OUTSIDE RECORDS SUMMARY | 2023-12-08 02:44 | External Medical Summary ---
Author Name Unknown Address Unknown Organization K1F:LABORATORY [facility] - [address] [place] [address] Laboratory Report Ordering Provider Test Date Status JOEY GARCIA 11/28/2023 06:44:00 Final Less than 0.5 ng/mL: Low ris k for progression to sepsis. Review patients condition for localized infections.

0.5 to 2.0 ng/mL: Intermediate risk for progresion to sepsis. Review underlying conditions. Recommend repeat PCT after 6 hours has elapsed.

Greater than 2.0 ng/mL: high risk for progression to sepsis unless other causes are known. Observation Date Value Abnormality Reference (Units ) Status Procalcitonin [Mass/volume] in Serum or Plasma by Immunoassay 11/28/2023 06:44:00 0.18 Above high normal <0.10 (ng/mL) Final Performing Location LABORATORY [facility] - [address] [place] [address]
--- OUTSIDE RECORDS SUMMARY | 2023-12-08 02:44 | External Medical Summary ---
Author Name Unknown Address Unknown Organization K1F:LABORATORY [facility] - [address] [place] [address] Laboratory Report Ordering Provider Test Date Status JOEY GARCIA 11/25/2023 07:00:00 Final Observation Date Value Abnormality Reference (Units ) Status WBC, Total 11/25/2023 07:00:00 11.89 Above high normal 4.00-10.80 (K/uL) Final RBC 11/25/2023 07:00:00 3.45 3.85-5.15 (M/uL) Final Hemoglobin 11/25/2023 07:00:00 9.8 Below low normal 12.0-15.3 (g/dL) Final HCT 11/25/2023 07:00:00 30.9 Below low normal 36.0-45.2 (%) Final MCV 11/25/2023 07:00:00 89.6 81.5-97.5 (fL) Final MCH 11/25/2023 07:00:00 28.4 27.0-34.0 (pg) Final MCHC 11/25/2023 07:00:00 31.7 32.0-36.0 (g/dL) Final RDW 11/25/2023 07:00:00 14.8 11.5-15.5 (%) Final Platelets 11/25/2023 07:00:00 534 Above high normal 140-400 (K/uL) Final MPV 11/25/2023 07:00:00 9.9 6.6-11.1 (fL) Final Nucleated erythrocytes/100 leukocytes [Ratio] in Blood by Automated count 11/25/2023 07:00:00 0 <=0 (/100 WBCs) Final Performing Location LABORATORY [facility] - [address] [place] [address]
--- OUTSIDE RECORDS SUMMARY | 2023-12-08 02:44 | External Medical Summary ---
Author Name Unknown Address Unknown Organization K1F:LABORATORY [facility] - [address] [place] [address] Laboratory Report Ordering Provider Test Date Status JOEY GARCIA 11/25/2023 07:00:00 Final Less than 0.5 ng/mL: Low ris [...] [Mass/volume] in Serum or Plasma by Immunoassay 11/25/2023 07:00:00 0.16 Above high normal <0.10 (ng/mL) Final Performing Location LABORATORY [facility] - [address] [place] [address]
--- OUTSIDE RECORDS SUMMARY | 2023-12-08 02:44 | External Medical Summary ---
Author Name Unknown Address Unknown Organization : Laboratory Report Ordering Provider Test Date Status JOEY GARCIA 11/27/2023 16:52:49 Final Observation Date Value Abnormality Reference (Units ) Status Glucose Point of Care 11/27/2023 16:52:49 168 Above high normal 70-120 (mg/dL) Final Performing Location
--- OUTSIDE RECORDS SUMMARY | 2023-12-08 02:44 | External Medical Summary ---
Author Name Unknown Address Unknown Organization : Laboratory Report Ordering Provider Test Date Status JOEY GARCIA 11/26/2023 21:38:10 Final Observation Date Value Abnormality Reference (Units ) Status Glucose Point of Care 11/26/2023 21:38:10 202 Above high normal 70-120 (mg/dL) Final Performing Location
--- OUTSIDE RECORDS SUMMARY | 2023-12-08 02:44 | External Medical Summary ---
Author Name Unknown Address Unknown Organization : Laboratory Report Ordering Provider Test Date Status JOEY GARCIA 11/25/2023 21:24:31 Final Observation Date Value Abnormality Reference (Units ) Status Glucose Point of Care 11/25/2023 21:24:31 189 Above high normal 70-120 (mg/dL) Final Performing Location
--- OUTSIDE RECORDS SUMMARY | 2023-12-08 02:44 | External Medical Summary ---
Author Name Unknown Address Unknown Organization K1F:LABORATORY [facility] - [address] [place] [address] Laboratory Report Ordering Provider Test Date Status JOEY GARCIA 11/28/2023 12:21:00 Final Observation Date Value Abnormality Reference (Units ) Status BUN 11/28/2023 12:21:00 81 Above high normal 6-20 (mg/dL) Final Creatinine 11/28/2023 12:21:00 2.1 Above high normal 0.5-1.0 (mg/dL) Final Glomerular filtration rate/1.73 sq M.predicted [Volume Rate/Area] in Serum, Plasma or Blood by Creatinine-based formula (CKD-EPI) 11/28/2023 12:21:00 26 Below low normal >=60 (mL/min) Final eGFR is calculated based on the CKD-EPI 2020 equation. Sodium 11/28/2023 12:21:00 131 Below low normal 135 -146 (mmol/L) Final Potassium 11/28/2023 12:21:00 4.2 3.5-5.1 (m mol/L) Final Cl 11/28/2023 12:21:00 95 Below low normal 98- 107 (mmol/L) Final CO2 11/28/2023 12:21:00 22 22-32 (mmo l/L) Final Anion gap 11/28/2023 12:21:00 14 7-15 (mmol /L) Final Glucose 11/28/2023 12:21:00 218 Above high normal 70 -120 (mg/dL) Final Calcium 11/28/2023 12:21:00 9.1 8.4-10.2 ( mg/dL) Final Performing Location LABORATORY [facility] - [address] [place] [address]
--- OUTSIDE RECORDS SUMMARY | 2023-12-08 02:44 | External Medical Summary ---
Author Name Unknown Address Unknown Organization : Laboratory Report Ordering Provider Test Date Status JOEY GARCIA 11/25/2023 08:08:13 Final Observation Date Value Abnormality Reference (Units ) Status Glucose Point of Care 11/25/2023 08:08:13 132 Above high normal 70-120 (mg/dL) Final Performing Location
--- OUTSIDE RECORDS SUMMARY | 2023-12-08 02:45 | External Medical Summary ---
Author Name Unknown Address Unknown Organization K1F:LABORATORY [facility] - [address] [place] [address] Laboratory Report Ordering Provider Test Date Status JOEY GARCIA 11/25/2023 07:00:00 Final Observation Date Value Abnormality Reference (Units ) Status CK 11/25/2023 07:00:00 16 Below low normal 26- 192 (U/L) Final Performing Location LABORATORY [facility] - [address] [place] [address]
--- OUTSIDE RECORDS SUMMARY | 2023-12-08 02:45 | External Medical Summary ---
Author Name Unknown Address Unknown Organization K1F:LABORATORY [facility] - [address] [place] [address] Laboratory Report Ordering Provider Test Date Status AILEEN KIDD 11/23/2023 15:06:00 Final Observation Date Value Abnormality Reference (Units ) Status BUN 11/23/2023 15:06:00 108 Above high normal 6-20 (mg/dL) Final Creatinine 11/23/2023 15:06:00 2.5 Above high normal 0.5-1.0 (mg/dL) Final Glomerular filtration rate/1.73 sq M.predicted [Volume Rate/Area] in Serum, Plasma or Blood by Creatinine-based formula (CKD-EPI) 11/23/2023 15:06:00 21 Below low normal >=60 (mL/min) Final eGFR is calculated based on the CKD-EPI 2020 equation. Sodium 11/23/2023 15:06:00 128 Below low normal 135 -146 (mmol/L) Final Potassium 11/23/2023 15:06:00 3.9 3.5-5.1 (m mol/L) Final Cl 11/23/2023 15:06:00 89 Below low normal 98- 107 (mmol/L) Final CO2 11/23/2023 15:06:00 23 22-32 (mmo l/L) Final Anion gap 11/23/2023 15:06:00 16 Above high normal 7- 15 (mmol/L) Final Glucose 11/23/2023 15:06:00 199 Above high normal 70 -120 (mg/dL) Final Calcium 11/23/2023 15:06:00 9.1 8.4-10.2 ( mg/dL) Final Performing Location LABORATORY [facility] - [address] [place] [address]
--- OUTSIDE RECORDS SUMMARY | 2023-12-08 02:45 | External Medical Summary ---
Author Name Unknown Address Unknown Organization K1F:LABORATORY [facility] - [address] [place] [address] Laboratory Report Ordering Provider Test Date Status MINRADHAW 11/24/2023 06:17:00 Final Observation Date Value Abnormality Reference (Units ) Status SYNC LEUKOCYTES IN BLOOD BY AUTOMATED COUNT 11/24/2023 06:17:00 11.19 Above high normal 4.00-10.80 (K/uL) Final Segs 11/24/2023 06:17:00 74.9 40.0-75.0 (%) Final Lymphs % 11/24/2023 06:17:00 14.1 Below low normal 18.0-42.0 (%) Final Monos 11/24/2023 06:17:00 7.3 1.0-11.0 (%) Final Eosinophils 11/24/2023 06:17:00 2.1 0.0-6.0 (%) Final Basos 11/24/2023 06:17:00 0.4 0.0-2.0 (%) Final Immature Granulocyte, Percent 11/24/2023 06:17:00 1.2 0.0-2.0 (%) Final Absolute Segs 11/24/2023 06:17:00 8.39 Above high normal 1.80-7.70 (K/uL) Final Lymphs, absolute 11/24/2023 06:17:00 1.58 1.00-4.80 (K/ul) Final Monos, Abs 11/24/2023 06:17:00 0.82 0.00-1.10 (K/uL) Final Eos, Abs 11/24/2023 06:17:00 0.23 0.00-0.70 (K/uL) Final Basos, Abs 11/24/2023 06:17:00 0.04 0.00-0.20 (K/uL) Final Immature Granulocytes, Number 11/24/2023 06:17:00 0.13 0.00-0.20 (K/uL) Final Performing Location [address]ORY [address] [place] [address]
--- OUTSIDE RECORDS SUMMARY | 2023-12-08 02:45 | External Medical Summary ---
Author Name Unknown Address Unknown Organization K1F:LABORATORY [facility] - [address] [place] [address] Laboratory Report Ordering Provider Test Date Status AILEEN KIDD 11/24/2023 06:17:00 Final Observation Date Value Abnormality Reference (Units ) Status BUN 11/24/2023 06:17:00 101 Above high normal 6-20 (mg/dL) Final Creatinine 11/24/2023 06:17:00 2.5 Above high normal 0.5-1.0 (mg/dL) Final Glomerular filtration rate/1.73 sq M.predicted [Volume Rate/Area] in Serum, Plasma or Blood by Creatinine-based formula (CKD-EPI) 11/24/2023 06:17:00 21 Below low normal >=60 (mL/min) Final eGFR is calculated based on the CKD-EPI 2020 equation. Sodium 11/24/2023 06:17:00 134 Below low normal 135 -146 (mmol/L) Final Potassium 11/24/2023 06:17:00 3.4 Below low normal 3.5 -5.1 (mmol/L) Final Cl 11/24/2023 06:17:00 94 Below low normal 98- 107 (mmol/L) Final CO2 11/24/2023 06:17:00 27 22-32 (mmo l/L) Final Anion gap 11/24/2023 06:17:00 13 7-15 (mmol /L) Final Glucose 11/24/2023 06:17:00 115 70-120 (mg /dL) Final Calcium 11/24/2023 06:17:00 8.8 8.4-10.2 ( mg/dL) Final Performing Location LABORATORY [facility] - [address] [place] [address]
--- OUTSIDE RECORDS SUMMARY | 2023-12-08 02:45 | External Medical Summary ---
Author Name Unknown Address Unknown Organization K1F:LABORATORY [facility] - [address] [place] [address] Laboratory Report Ordering Provider Test Date Status MIN,MAW 11/24/2023 06:17:00 Final Observation Date Value Abnormality Reference (Units ) Status WBC, Total 11/24/2023 06:17:00 11.19 Above high normal 4.00-10.80 (K/uL) Final RBC 11/24/2023 06:17:00 2.84 3.85-5.15 (M/uL) Final Hemoglobin 11/24/2023 06:17:00 8.0 Below low normal 12.0-15.3 (g/dL) Final HCT 11/24/2023 06:17:00 24.8 Below low normal 36.0-45.2 (%) Final MCV 11/24/2023 06:17:00 87.3 81.5-97.5 (fL) Final MCH 11/24/2023 06:17:00 28.2 27.0-34.0 (pg) Final MCHC 11/24/2023 06:17:00 32.3 32.0-36.0 (g/dL) Final RDW 11/24/2023 06:17:00 14.5 11.5-15.5 (%) Final Platelets 11/24/2023 06:17:00 455 Above high normal 140-400 (K/uL) Final MPV 11/24/2023 06:17:00 9.7 6.6-11.1 (fL) Final Nucleated erythrocytes/100 leukocytes [Ratio] in Blood by Automated count 11/24/2023 06:17:00 0 <=0 (/100 WBCs) Final Performing Location LABORATORY [facility] - [address] [place] [address]
--- OUTSIDE RECORDS SUMMARY | 2023-12-08 02:45 | External Medical Summary ---
Author Name Unknown Address Unknown Organization K1F:LABORATORY [facility] - [address] [place] [address] Laboratory Report Ordering Provider Test Date Status AILEEN KIDD 11/22/2023 06:36:00 Final Observation Date Value Abnormality Reference (Units ) Status BUN 11/22/2023 06:36:00 108 Above high normal 6-20 (mg/dL) Final Creatinine 11/22/2023 06:36:00 2.7 Above high normal 0.5-1.0 (mg/dL) Final Glomerular filtration rate/1.73 sq M.predicted [Volume Rate/Area] in Serum, Plasma or Blood by Creatinine-based formula (CKD-EPI) 11/22/2023 06:36:00 20 Below low normal >=60 (mL/min) Final eGFR is calculated based on the CKD-EPI 2020 equation. Sodium 11/22/2023 06:36:00 131 Below low normal 135 -146 (mmol/L) Final Potassium 11/22/2023 06:36:00 3.7 3.5-5.1 (m mol/L) Final Cl 11/22/2023 06:36:00 91 Below low normal 98- 107 (mmol/L) Final CO2 11/22/2023 06:36:00 26 22-32 (mmo l/L) Final Anion gap 11/22/2023 06:36:00 14 7-15 (mmol /L) Final Glucose 11/22/2023 06:36:00 148 Above high normal 70 -120 (mg/dL) Final Calcium 11/22/2023 06:36:00 8.3 Below low normal 8.4 -10.2 (mg/dL) Final Performing Location LABORATORY [facility] - [address] [place] [address]
--- OUTSIDE RECORDS SUMMARY | 2023-12-08 02:45 | External Medical Summary ---
Author Name Unknown Address Unknown Organization K1F:LABORATORY [facility] - [address] [place] [address] Laboratory Report Ordering Provider Test Date Status JINA ANDRES 11/23/2023 22:31:00 Final Observation Date Value Abnormality Reference (Units ) Status Magnesium 11/23/2023 22:31:00 1.8 1.5-2.6 (m g/dL) Final Performing Location LABORATORY [facility] - [address] [place] [address]
--- OUTSIDE RECORDS SUMMARY | 2023-12-08 02:45 | External Medical Summary ---
Author Name Unknown Address Unknown Organization K1F:LABORATORY [facility] - [address] [place] [address] Laboratory Report Ordering Provider Test Date Status JINA ANDRES 11/23/2023 22:31:00 Final Observation Date Value Abnormality Reference (Units ) Status BUN 11/23/2023 22:31:00 106 Above high normal 6-20 (mg/dL) Final Creatinine 11/23/2023 22:31:00 2.4 Above high normal 0.5-1.0 (mg/dL) Final Glomerular filtration rate/1.73 sq M.predicted [Volume Rate/Area] in Serum, Plasma or Blood by Creatinine-based formula (CKD-EPI) 11/23/2023 22:31:00 22 Below low normal >=60 (mL/min) Final eGFR is calculated based on the CKD-EPI 2020 equation. Sodium 11/23/2023 22:31:00 132 Below low normal 135 -146 (mmol/L) Final Potassium 11/23/2023 22:31:00 4.0 3.5-5.1 (m mol/L) Final Cl 11/23/2023 22:31:00 91 Below low normal 98- 107 (mmol/L) Final CO2 11/23/2023 22:31:00 27 22-32 (mmo l/L) Final Anion gap 11/23/2023 22:31:00 14 7-15 (mmol /L) Final Glucose 11/23/2023 22:31:00 186 Above high normal 70 -120 (mg/dL) Final Albumin 11/23/2023 22:31:00 2.3 Below low normal 3.8 -5.0 (g/dL) Final AST (Aspartate aminotransferase) 11/23/2023 22:31:00 16 10-35 (U/L) Fin al Alk Phos 11/23/2023 22:31:00 205 Above high normal 35 -130 (U/L) Final Bilirubin, Total 11/23/2023 22:31:00 <0.2 <=1 .2 (mg/dL) Final Calcium 11/23/2023 22:31:00 8.9 8.4-10.2 ( mg/dL) Final Protein 11/23/2023 22:31:00 6.9 6.0-8.3 (g /dL) Final ALT (Alanine aminotransferase) 11/23/2023 22:31:00 6 Below low normal 10-35 (U/L) Final Performing Location LABORATORY [facility] - [facility] [place] [address]
--- OUTSIDE RECORDS SUMMARY | 2023-12-08 02:45 | External Medical Summary ---
Author Name Unknown Address Unknown Organization K1F:LABORATORY [facility] - [address] [place] [address] Laboratory Report Ordering Provider Test Date Status RADHA KIDDW 11/23/2023 07:34:00 Final Observation Date Value Abnormality Reference (Units ) Status SYNC LEUKOCYTES IN BLOOD BY AUTOMATED COUNT 11/23/2023 07:34:00 12.02 Above high normal 4.00-10.80 (K/uL) Final Segs 11/23/2023 07:34:00 73.1 40.0-75.0 (%) Final Lymphs % 11/23/2023 07:34:00 14.4 Below low normal 18.0-42.0 (%) Final Monos 11/23/2023 07:34:00 6.7 1.0-11.0 (%) Final Eosinophils 11/23/2023 07:34:00 3.7 0.0-6.0 (%) Final Basos 11/23/2023 07:34:00 0.4 0.0-2.0 (%) Final Immature Granulocyte, Percent 11/23/2023 07:34:00 1.7 0.0-2.0 (%) Final Absolute Segs 11/23/2023 07:34:00 8.79 Above high normal 1.80-7.70 (K/uL) Final Lymphs, absolute 11/23/2023 07:34:00 1.73 1.00-4.80 (K/ul) Final Monos, Abs 11/23/2023 07:34:00 0.81 0.00-1.10 (K/uL) Final Eos, Abs 11/23/2023 07:34:00 0.44 0.00-0.70 (K/uL) Final Basos, Abs 11/23/2023 07:34:00 0.05 0.00-0.20 (K/uL) Final Immature Granulocytes, Number 11/23/2023 07:34:00 0.20 0.00-0.20 (K/uL) Final Performing Location LABORATORY [address] [place] [address]
--- OUTSIDE RECORDS SUMMARY | 2023-12-08 02:45 | External Medical Summary ---
Author Name Unknown Address Unknown Organization : Laboratory Report Ordering Provider Test Date Status AILEEN KIDD 11/22/2023 07:40:50 Final Observation Date Value Abnormality Reference (Units ) Status Glucose Point of Care 11/22/2023 07:40:50 132 Above high normal 70-120 (mg/dL) Final Performing Location
--- OUTSIDE RECORDS SUMMARY | 2023-12-08 02:45 | External Medical Summary ---
Author Name Unknown Address Unknown Organization : Laboratory Report Ordering Provider Test Date Status JOEY GARCIA 11/24/2023 16:32:37 Final Observation Date Value Abnormality Reference (Units ) Status Glucose Point of Care 11/24/2023 16:32:37 147 Above high normal 70-120 (mg/dL) Final Performing Location
--- OUTSIDE RECORDS SUMMARY | 2023-12-08 02:45 | External Medical Summary ---
Author Name Unknown Address Unknown Organization K1F:LABORATORY [facility] - [address] [place] [address] Laboratory Report Ordering Provider Test Date Status MIN,MAW 11/23/2023 07:34:00 Final Observation Date Value Abnormality Reference (Units ) Status WBC, Total 11/23/2023 07:34:00 12.02 Above high normal 4.00-10.80 (K/uL) Final RBC 11/23/2023 07:34:00 2.85 3.85-5.15 (M/uL) Final Hemoglobin 11/23/2023 07:34:00 8.1 Below low normal 12.0-15.3 (g/dL) Final HCT 11/23/2023 07:34:00 25.0 Below low normal 36.0-45.2 (%) Final MCV 11/23/2023 07:34:00 87.7 81.5-97.5 (fL) Final MCH 11/23/2023 07:34:00 28.4 27.0-34.0 (pg) Final MCHC 11/23/2023 07:34:00 32.4 32.0-36.0 (g/dL) Final RDW 11/23/2023 07:34:00 14.6 11.5-15.5 (%) Final Platelets 11/23/2023 07:34:00 459 Above high normal 140-400 (K/uL) Final MPV 11/23/2023 07:34:00 10.4 6.6-11.1 (fL) Final Nucleated erythrocytes/100 leukocytes [Ratio] in Blood by Automated count 11/23/2023 07:34:00 0 <=0 (/100 WBCs) Final Performing Location LABORATORY [facility] - [address] [place] [address]
--- OUTSIDE RECORDS SUMMARY | 2023-12-08 02:45 | External Medical Summary ---
Author Name Unknown Address Unknown Organization : Laboratory Report Ordering Provider Test Date Status AILEEN KIDD 11/23/2023 21:06:03 Final Observation Date Value Abnormality Reference (Units ) Status Glucose Point of Care 11/23/2023 21:06:03 184 Above high normal 70-120 (mg/dL) Final Performing Location
--- OUTSIDE RECORDS SUMMARY | 2023-12-08 02:45 | External Medical Summary ---
Author Name Unknown Address Unknown Organization K1F:LABORATORY [facility] - [address] [place] [address] Laboratory Report Ordering Provider Test Date Status MIN,MAW 11/23/2023 15:06:00 Final Observation Date Value Abnormality Reference (Units ) Status Lipase 11/23/2023 15:06:00 18 13-60 (U/L ) Final Performing Location LABORATORY [facility] - [address] [place] [address]
--- OUTSIDE RECORDS SUMMARY | 2023-12-08 02:45 | External Medical Summary ---
Author Name Unknown Address Unknown Organization K1F:LABORATORY [facility] - [address] [place] [address] Laboratory Report Ordering Provider Test Date Status MIN,MAW 11/22/2023 06:36:00 Final Observation Date Value Abnormality Reference (Units ) Status WBC, Total 11/22/2023 06:36:00 12.34 Above high normal 4.00-10.80 (K/uL) Final RBC 11/22/2023 06:36:00 2.79 3.85-5.15 (M/uL) Final Hemoglobin 11/22/2023 06:36:00 7.9 Below low normal 12.0-15.3 (g/dL) Final HCT 11/22/2023 06:36:00 24.2 Below low normal 36.0-45.2 (%) Final MCV 11/22/2023 06:36:00 86.7 81.5-97.5 (fL) Final MCH 11/22/2023 06:36:00 28.3 27.0-34.0 (pg) Final MCHC 11/22/2023 06:36:00 32.6 32.0-36.0 (g/dL) Final RDW 11/22/2023 06:36:00 14.4 11.5-15.5 (%) Final Platelets 11/22/2023 06:36:00 433 Above high normal 140-400 (K/uL) Final MPV 11/22/2023 06:36:00 10.2 6.6-11.1 (fL) Final Nucleated erythrocytes/100 leukocytes [Ratio] in Blood by Automated count 11/22/2023 06:36:00 0 <=0 (/100 WBCs) Final Performing Location LABORATORY [facility] - [address] [place] [address]
--- OUTSIDE RECORDS SUMMARY | 2023-12-08 02:45 | External Medical Summary ---
Author Name Unknown Address Unknown Organization : Laboratory Report Ordering Provider Test Date Status AILEEN KIDD 11/23/2023 07:52:24 Final Observation Date Value Abnormality Reference (Units ) Status Glucose Point of Care 11/23/2023 07:52:24 134 Above high normal 70-120 (mg/dL) Final Performing Location
--- OUTSIDE RECORDS SUMMARY | 2023-12-08 02:45 | External Medical Summary ---
Author Name Unknown Address Unknown Organization K1F:LABORATORY [facility] - [address] [place] [address] Laboratory Report Ordering Provider Test Date Status AILEEN KIDD 11/23/2023 07:34:00 Final Observation Date Value Abnormality Reference (Units ) Status BUN 11/23/2023 07:34:00 107 Above high normal 6-20 (mg/dL) Final Creatinine 11/23/2023 07:34:00 2.6 Above high normal 0.5-1.0 (mg/dL) Final Glomerular filtration rate/1.73 sq M.predicted [Volume Rate/Area] in Serum, Plasma or Blood by Creatinine-based formula (CKD-EPI) 11/23/2023 07:34:00 20 Below low normal >=60 (mL/min) Final eGFR is calculated based on the CKD-EPI 2020 equation. Sodium 11/23/2023 07:34:00 129 Below low normal 135 -146 (mmol/L) Final Potassium 11/23/2023 07:34:00 3.4 Below low normal 3.5 -5.1 (mmol/L) Final Cl 11/23/2023 07:34:00 90 Below low normal 98- 107 (mmol/L) Final CO2 11/23/2023 07:34:00 25 22-32 (mmo l/L) Final Anion gap 11/23/2023 07:34:00 14 7-15 (mmol /L) Final Glucose 11/23/2023 07:34:00 127 Above high normal 70 -120 (mg/dL) Final Calcium 11/23/2023 07:34:00 8.7 8.4-10.2 ( mg/dL) Final Performing Location LABORATORY [facility] - [address] [place] [address]
--- OUTSIDE RECORDS SUMMARY | 2023-12-08 02:45 | External Medical Summary ---
Author Name Unknown Address Unknown Organization K1F:LABORATORY [facility] - [address] [place] [address] Laboratory Report Ordering Provider Test Date Status JOEY GARCIA 11/24/2023 06:17:00 Final Less than 0.5 ng/mL: Low ris [...] [Mass/volume] in Serum or Plasma by Immunoassay 11/24/2023 06:17:00 0.14 Above high normal <0.10 (ng/mL) Final Performing Location LABORATORY [facility] - [address] [place] [address]
--- OUTSIDE RECORDS SUMMARY | 2023-12-08 02:45 | External Medical Summary ---
Author Name Unknown Address Unknown Organization K1F:LABORATORY [facility] - [address] [place] [address] Laboratory Report Ordering Provider Test Date Status MIN,MAW 11/23/2023 15:05:00 Final Observation Date Value Abnormality Reference (Units ) Status Lactic Acid 11/23/2023 15:05:00 1.2 0.4-2.0 (mmol/L) Final Performing Location LABORATORY [facility] - [address] [place] [address]
--- OUTSIDE RECORDS SUMMARY | 2023-12-08 02:45 | External Medical Summary ---
Author Name Unknown Address Unknown Organization : Laboratory Report Ordering Provider Test Date Status JOEY GARCIA 11/24/2023 07:34:18 Final Observation Date Value Abnormality Reference (Units ) Status Glucose Point of Care 11/24/2023 07:34:18 106 70-120 (mg/dL) Final Performing Location
--- OUTSIDE RECORDS SUMMARY | 2023-12-08 02:45 | External Medical Summary ---
Author Name Unknown Address Unknown Organization K1F:LABORATORY [facility] - [address] [place] [address] Laboratory Report Ordering Provider Test Date Status AILEEN KIDD 11/22/2023 06:36:00 Final Observation Date Value Abnormality Reference (Units ) Status SYNC LEUKOCYTES IN BLOOD BY AUTOMATED COUNT 11/22/2023 06:36:00 12.34 Above high normal 4.00-10.80 (K/uL) Final Segs 11/22/2023 06:36:00 75.5 Above high normal 40.0-75.0 (%) Final Lymphs % 11/22/2023 06:36:00 12.0 Below low normal 18.0-42.0 (%) Final Monos 11/22/2023 06:36:00 7.1 1.0-11.0 (%) Final Eosinophils 11/22/2023 06:36:00 3.7 0.0-6.0 (%) Final Basos 11/22/2023 06:36:00 0.2 0.0-2.0 (%) Final Immature Granulocyte, Percent 11/22/2023 06:36:00 1.5 0.0-2.0 (%) Final Absolute Segs 11/22/2023 06:36:00 9.31 Above high normal 1.80-7.70 (K/uL) Final Lymphs, absolute 11/22/2023 06:36:00 1.48 1.00-4.80 (K/ul) Final Monos, Abs 11/22/2023 06:36:00 0.87 0.00-1.10 (K/uL) Final Eos, Abs 11/22/2023 06:36:00 0.46 0.00-0.70 (K/uL) Final Basos, Abs 11/22/2023 06:36:00 0.03 0.00-0.20 (K/uL) Final Immature Granulocytes, Number 11/22/2023 06:36:00 0.19 0.00-0.20 (K/uL) Final Performing Location LABORATORY [facility] - [facility] [address] [place] [address]
--- OUTSIDE RECORDS SUMMARY | 2023-12-08 02:45 | External Medical Summary ---
Author Name Unknown Address Unknown Organization K1F:LABORATORY [facility] - [address] [place] [address] Laboratory Report Ordering Provider Test Date Status JINA ANDRES 11/21/2023 20:03:00 Final Observation Date Value Abnormality Reference (Units ) Status Troponin T 11/21/2023 20:03:00 217 Above upper panic limits <=14 (ng/L) Final Performing Location LABORATORY [facility] - [address] [place] [address]
--- OUTSIDE RECORDS SUMMARY | 2023-12-08 02:45 | External Medical Summary ---
Author Name Unknown Address Unknown Organization : Laboratory Report Ordering Provider Test Date Status AILEEN KIDD 11/22/2023 16:25:02 Final Observation Date Value Abnormality Reference (Units ) Status Glucose Point of Care 11/22/2023 16:25:02 160 Above high normal 70-120 (mg/dL) Final Performing Location
--- OUTSIDE RECORDS SUMMARY | 2023-12-08 02:45 | External Medical Summary ---
Author Name Unknown Address Unknown Organization K1F:LABORATORY [facility] - [address] [place] [address] Laboratory Report Ordering Provider Test Date Status ANDREA LANGE 11/23/2023 07:34:00 Final Observation Date Value Abnormality Reference (Units ) Status CRP, low-sensitivity 11/23/2023 07:34:00 110 Above high normal <=5 (mg/L) Final Performing Location LABORATORY [facility] - [address] [place] [address]
--- OUTSIDE RECORDS SUMMARY | 2023-12-08 02:45 | External Medical Summary ---
Author Name Unknown Address Unknown Organization : Laboratory Report Ordering Provider Test Date Status AILEEN KIDD 11/21/2023 21:42:38 Final Observation Date Value Abnormality Reference (Units ) Status Glucose Point of Care 11/21/2023 21:42:38 209 Above high normal 70-120 (mg/dL) Final Performing Location
--- OUTSIDE RECORDS SUMMARY | 2023-12-08 02:45 | External Medical Summary ---
Author Name Unknown Address Unknown Organization K1F:LABORATORY [facility] - [address] [place] [address] Laboratory Report Ordering Provider Test Date Status JINA ANDRES 11/23/2023 22:31:00 Final Observation Date Value Abnormality Reference (Units ) Status WBC, Total 11/23/2023 22:31:00 13.09 Above high normal 4.00-10.80 (K/uL) Final RBC 11/23/2023 22:31:00 3.34 3.85-5.15 (M/uL) Final Hemoglobin 11/23/2023 22:31:00 9.4 Below low normal 12.0-15.3 (g/dL) Final HCT 11/23/2023 22:31:00 29.4 Below low normal 36.0-45.2 (%) Final MCV 11/23/2023 22:31:00 88.0 81.5-97.5 (fL) Final MCH 11/23/2023 22:31:00 28.1 27.0-34.0 (pg) Final MCHC 11/23/2023 22:31:00 32.0 32.0-36.0 (g/dL) Final RDW 11/23/2023 22:31:00 14.5 11.5-15.5 (%) Final Platelets 11/23/2023 22:31:00 518 Above high normal 140-400 (K/uL) Final MPV 11/23/2023 22:31:00 10.0 6.6-11.1 (fL) Final Nucleated erythrocytes/100 leukocytes [Ratio] in Blood by Automated count 11/23/2023 22:31:00 0 <=0 (/100 WBCs) Final Performing Location LABORATORY [facility] - [address] [place] [address]
--- OUTSIDE RECORDS SUMMARY | 2023-12-08 02:45 | External Medical Summary ---
Author Name Unknown Address Unknown Organization K1F:LABORATORY [facility] - [address] [place] [address] Laboratory Report Ordering Provider Test Date Status ANDREA LANGE 11/22/2023 06:36:00 Final Observation Date Value Abnormality Reference (Units ) Status CRP, low-sensitivity 11/22/2023 06:36:00 116 Above high normal <=5 (mg/L) Final Performing Location LABORATORY [facility] - [address] [place] [address]
--- OUTSIDE RECORDS SUMMARY | 2023-12-08 02:45 | External Medical Summary ---
Author Name Unknown Address Unknown Organization K1F:LABORATORY [facility] - [address] [place] [address] Laboratory Report Ordering Provider Test Date Status MIN,MAW 11/24/2023 06:17:00 Final Observation Date Value Abnormality Reference (Units ) Status CRP, low-sensitivity 11/24/2023 06:17:00 146 Above high normal <=5 (mg/L) Final Performing Location LABORATORY [facility] - [address] [place] [address]
--- OUTSIDE RECORDS SUMMARY | 2023-12-08 02:46 | External Medical Summary ---
Author Name Unknown Address Unknown Organization : Laboratory Report Ordering Provider Test Date Status ANDREA LANGE 11/19/2023 16:45:48 Final Observation Date Value Abnormality Reference (Units ) Status Glucose Point of Care 11/19/2023 16:45:48 159 Above high normal 70-120 (mg/dL) Final Performing Location
--- OUTSIDE RECORDS SUMMARY | 2023-12-08 02:46 | External Medical Summary ---
Author Name Unknown Address Unknown Organization K1F:LABORATORY [facility] - [address] [place] [address] Laboratory Report Ordering Provider Test Date Status ANDREA LANGE 11/21/2023 06:59:00 Final Observation Date Value Abnormality Reference (Units ) Status WBC, Total 11/21/2023 06:59:00 11.93 Above high normal 4.00-10.80 (K/uL) Final RBC 11/21/2023 06:59:00 2.70 3.85-5.15 (M/uL) Final Hemoglobin 11/21/2023 06:59:00 7.6 Below low normal 12.0-15.3 (g/dL) Final HCT 11/21/2023 06:59:00 23.6 Below low normal 36.0-45.2 (%) Final MCV 11/21/2023 06:59:00 87.4 81.5-97.5 (fL) Final MCH 11/21/2023 06:59:00 28.1 27.0-34.0 (pg) Final MCHC 11/21/2023 06:59:00 32.2 32.0-36.0 (g/dL) Final RDW 11/21/2023 06:59:00 14.5 11.5-15.5 (%) Final Platelets 11/21/2023 06:59:00 437 Above high normal 140-400 (K/uL) Final MPV 11/21/2023 06:59:00 10.3 6.6-11.1 (fL) Final Nucleated erythrocytes/100 leukocytes [Ratio] in Blood by Automated count 11/21/2023 06:59:00 0 <=0 (/100 WBCs) Final Performing Location LABORATORY [facility] - [address] [place] [address]
--- OUTSIDE RECORDS SUMMARY | 2023-12-08 02:46 | External Medical Summary ---
Author Name Unknown Address Unknown Organization : Laboratory Report Ordering Provider Test Date Status AILEEN KIDD 11/21/2023 16:12:00 Final Observation Date Value Abnormality Reference (Units ) Status Glucose Point of Care 11/21/2023 16:12:00 197 Above high normal 70-120 (mg/dL) Final Performing Location
--- OUTSIDE RECORDS SUMMARY | 2023-12-08 02:46 | External Medical Summary ---
Author Name Unknown Address Unknown Organization : Laboratory Report Ordering Provider Test Date Status ANDREA LANGE 11/20/2023 07:26:07 Final Observation Date Value Abnormality Reference (Units ) Status Glucose Point of Care 11/20/2023 07:26:07 147 Above high normal 70-120 (mg/dL) Final Performing Location
--- OUTSIDE RECORDS SUMMARY | 2023-12-08 02:46 | External Medical Summary ---
Author Name Unknown Address Unknown Organization : Laboratory Report Ordering Provider Test Date Status AILEEN KIDD 11/21/2023 07:52:01 Final Observation Date Value Abnormality Reference (Units ) Status Glucose Point of Care 11/21/2023 07:52:01 161 Above high normal 70-120 (mg/dL) Final Performing Location
--- OUTSIDE RECORDS SUMMARY | 2023-12-08 02:46 | External Medical Summary ---
Author Name Unknown Address Unknown Organization K1F:LABORATORY [facility] - [address] [place] [address] Laboratory Report Ordering Provider Test Date Status ANDREA LANGE 11/18/2023 07:57:00 Final Observation Date Value Abnormality Reference (Units ) Status CRP, low-sensitivity 11/18/2023 07:57:00 176 Above high normal <=5 (mg/L) Final Performing Location LABORATORY [facility] - [address] [place] [address]
--- OUTSIDE RECORDS SUMMARY | 2023-12-08 02:46 | External Medical Summary ---
Author Name Unknown Address Unknown Organization : Laboratory Report Ordering Provider Test Date Status ANDREA LANGE 11/18/2023 16:42:59 Final Observation Date Value Abnormality Reference (Units ) Status Glucose Point of Care 11/18/2023 16:42:59 159 Above high normal 70-120 (mg/dL) Final Performing Location
--- OUTSIDE RECORDS SUMMARY | 2023-12-08 02:46 | External Medical Summary ---
Author Name Unknown Address Unknown Organization K1F:LABORATORY [facility] - [address] [place] [address] Laboratory Report Ordering Provider Test Date Status ANDREA LANGE 11/21/2023 06:59:00 Final Observation Date Value Abnormality Reference (Units ) Status BUN 11/21/2023 06:59:00 109 Above high normal 6-20 (mg/dL) Final Creatinine 11/21/2023 06:59:00 2.6 Above high normal 0.5-1.0 (mg/dL) Final Glomerular filtration rate/1.73 sq M.predicted [Volume Rate/Area] in Serum, Plasma or Blood by Creatinine-based formula (CKD-EPI) 11/21/2023 06:59:00 20 Below low normal >=60 (mL/min) Final eGFR is calculated based on the CKD-EPI 2020 equation. Sodium 11/21/2023 06:59:00 130 Below low normal 135 -146 (mmol/L) Final Potassium 11/21/2023 06:59:00 3.7 3.5-5.1 (m mol/L) Final Cl 11/21/2023 06:59:00 90 Below low normal 98- 107 (mmol/L) Final CO2 11/21/2023 06:59:00 27 22-32 (mmo l/L) Final Anion gap 11/21/2023 06:59:00 13 7-15 (mmol /L) Final Glucose 11/21/2023 06:59:00 181 Above high normal 70 -120 (mg/dL) Final Calcium 11/21/2023 06:59:00 8.2 Below low normal 8.4 -10.2 (mg/dL) Final Performing Location LABORATORY [facility] - [address] [place] [address]
--- OUTSIDE RECORDS SUMMARY | 2023-12-08 02:46 | External Medical Summary ---
Author Name Unknown Address Unknown Organization : Laboratory Report Ordering Provider Test Date Status ANDREA LANGE 11/19/2023 21:09:53 Final Observation Date Value Abnormality Reference (Units ) Status Glucose Point of Care 11/19/2023 21:09:53 125 Above high normal 70-120 (mg/dL) Final Performing Location
--- OUTSIDE RECORDS SUMMARY | 2023-12-08 02:46 | External Medical Summary ---
Author Name Unknown Address Unknown Organization : Laboratory Report Ordering Provider Test Date Status ANDREA LANGE 11/18/2023 11:21:21 Final Observation Date Value Abnormality Reference (Units ) Status Glucose Point of Care 11/18/2023 11:21:21 165 Above high normal 70-120 (mg/dL) Final Performing Location
--- OUTSIDE RECORDS SUMMARY | 2023-12-08 02:46 | External Medical Summary ---
Author Name Unknown Address Unknown Organization : Laboratory Report Ordering Provider Test Date Status AILEEN KIDD 11/21/2023 11:20:24 Final Observation Date Value Abnormality Reference (Units ) Status Glucose Point of Care 11/21/2023 11:20:24 182 Above high normal 70-120 (mg/dL) Final Performing Location
--- OUTSIDE RECORDS SUMMARY | 2023-12-08 02:46 | External Medical Summary ---
Author Name Unknown Address Unknown Organization : Laboratory Report Ordering Provider Test Date Status ANDREA LANGE 11/19/2023 07:26:09 Final Observation Date Value Abnormality Reference (Units ) Status Glucose Point of Care 11/19/2023 07:26:09 171 Above high normal 70-120 (mg/dL) Final Performing Location
--- OUTSIDE RECORDS SUMMARY | 2023-12-08 02:46 | External Medical Summary ---
Author Name Unknown Address Unknown Organization K1F:LABORATORY [facility] - [address] [place] [address] Laboratory Report Ordering Provider Test Date Status JINA ANDRES 11/20/2023 08:13:00 Final Observation Date Value Abnormality Reference (Units ) Status Phosphate 11/20/2023 08:13:00 6.4 Above high normal 2. 5-4.8 (mg/dL) Final Performing Location LABORATORY [facility] - [address] [place] [address]
--- OUTSIDE RECORDS SUMMARY | 2023-12-08 02:46 | External Medical Summary ---
Author Name Unknown Address Unknown Organization K1F:LABORATORY [facility] - [address] [place] [address] Laboratory Report Ordering Provider Test Date Status MIN,MAW 11/19/2023 06:57:00 Final Observation Date Value Abnormality Reference (Units ) Status WBC, Total 11/19/2023 06:57:00 11.84 Above high normal 4.00-10.80 (K/uL) Final RBC 11/19/2023 06:57:00 2.96 3.85-5.15 (M/uL) Final Hemoglobin 11/19/2023 06:57:00 8.3 Below low normal 12.0-15.3 (g/dL) Final HCT 11/19/2023 06:57:00 26.1 Below low normal 36.0-45.2 (%) Final MCV 11/19/2023 06:57:00 88.2 81.5-97.5 (fL) Final MCH 11/19/2023 06:57:00 28.0 27.0-34.0 (pg) Final MCHC 11/19/2023 06:57:00 31.8 32.0-36.0 (g/dL) Final RDW 11/19/2023 06:57:00 14.6 11.5-15.5 (%) Final Platelets 11/19/2023 06:57:00 452 Above high normal 140-400 (K/uL) Final MPV 11/19/2023 06:57:00 10.1 6.6-11.1 (fL) Final Nucleated erythrocytes/100 leukocytes [Ratio] in Blood by Automated count 11/19/2023 06:57:00 0 <=0 (/100 WBCs) Final Performing Location LABORATORY [facility] - [address] [place] [address]
--- OUTSIDE RECORDS SUMMARY | 2023-12-08 02:46 | External Medical Summary ---
Author Name Unknown Address Unknown Organization : Laboratory Report Ordering Provider Test Date Status NADREA LANGE 11/20/2023 11:26:58 Final Observation Date Value Abnormality Reference (Units ) Status Glucose Point of Care 11/20/2023 11:26:58 222 Above high normal 70-120 (mg/dL) Final Performing Location
--- OUTSIDE RECORDS SUMMARY | 2023-12-08 02:46 | External Medical Summary ---
Author Name Unknown Address Unknown Organization K1F:LABORATORY [facility] - [address] [place] [address] Laboratory Report Ordering Provider Test Date Status ANDREA LANGE 11/18/2023 17:05:00 Final Observation Date Value Abnormality Reference (Units ) Status Troponin T 11/18/2023 17:05:00 212 Above upper panic limits <=14 (ng/L) Final Performing Location LABORATORY [facility] - [address] [place] [address]
--- OUTSIDE RECORDS SUMMARY | 2023-12-08 02:46 | External Medical Summary ---
Author Name Unknown Address Unknown Organization K1F:LABORATORY [facility] - [address] [place] [address] Laboratory Report Ordering Provider Test Date Status JINA ANDRES 11/21/2023 20:03:00 Final Observation Date Value Abnormality Reference (Units ) Status Magnesium 11/21/2023 20:03:00 1.7 1.5-2.6 (m g/dL) Final Performing Location LABORATORY [facility] - [address] [place] [address]
--- OUTSIDE RECORDS SUMMARY | 2023-12-08 02:46 | External Medical Summary ---
Author Name Unknown Address Unknown Organization K1F:LABORATORY [facility] - [address] [place] [address] Laboratory Report Ordering Provider Test Date Status ANDREA LANGE 11/19/2023 06:57:00 Final Observation Date Value Abnormality Reference (Units ) Status BUN 11/19/2023 06:57:00 122 Above high normal 6-20 (mg/dL) Final Creatinine 11/19/2023 06:57:00 3.0 Above high normal 0.5-1.0 (mg/dL) Final Glomerular filtration rate/1.73 sq M.predicted [Volume Rate/Area] in Serum, Plasma or Blood by Creatinine-based formula (CKD-EPI) 11/19/2023 06:57:00 17 Below low normal >=60 (mL/min) Final eGFR is calculated based on the CKD-EPI 2020 equation. Sodium 11/19/2023 06:57:00 130 Below low normal 135 -146 (mmol/L) Final Potassium 11/19/2023 06:57:00 3.8 3.5-5.1 (m mol/L) Final Cl 11/19/2023 06:57:00 90 Below low normal 98- 107 (mmol/L) Final CO2 11/19/2023 06:57:00 27 22-32 (mmo l/L) Final Anion gap 11/19/2023 06:57:00 13 7-15 (mmol /L) Final Glucose 11/19/2023 06:57:00 164 Above high normal 70 -120 (mg/dL) Final Calcium 11/19/2023 06:57:00 8.4 8.4-10.2 ( mg/dL) Final Performing Location LABORATORY [facility] - [address] [place] [address]
--- OUTSIDE RECORDS SUMMARY | 2023-12-08 02:46 | External Medical Summary ---
Author Name Unknown Address Unknown Organization K1F:LABORATORY [facility] - [address] [place] [address] Laboratory Report Ordering Provider Test Date Status MIN,MAW 11/18/2023 07:57:00 Final Observation Date Value Abnormality Reference (Units ) Status Vancomycin, level 11/18/2023 07:57:00 14.4 10 .0-40.0 (ug/mL) Final Performing Location LABORATORY [facility] - [address] [place] [address]
--- OUTSIDE RECORDS SUMMARY | 2023-12-08 02:46 | External Medical Summary ---
Author Name Unknown Address Unknown Organization : Laboratory Report Ordering Provider Test Date Status ANDREA LANGE 11/19/2023 11:30:21 Final Observation Date Value Abnormality Reference (Units ) Status Glucose Point of Care 11/19/2023 11:30:21 177 Above high normal 70-120 (mg/dL) Final Performing Location
--- OUTSIDE RECORDS SUMMARY | 2023-12-08 02:46 | External Medical Summary ---
Author Name Unknown Address Unknown Organization K1F:LABORATORY [facility] - [address] [address] Laboratory Report Ordering Provider Test Date Status ANDREA LANGE 11/20/2023 08:13:00 Final Observation Date Value Abnormality Reference (Units ) Status CRP, low-sensitivity 11/20/2023 08:13:00 127 Above high normal <=5 (mg/L) Final Performing Location LABORATORY [facility] - [address] [place] [address]
--- OUTSIDE RECORDS SUMMARY | 2023-12-08 02:46 | External Medical Summary ---
Author Name Unknown Address Unknown Organization K1F:LABORATORY [facility] - [address] [place] [address] Laboratory Report Ordering Provider Test Date Status ANDREA LANGE 11/18/2023 15:27:00 Final Observation Date Value Abnormality Reference (Units ) Status Hemoglobin 11/18/2023 15:27:00 8.0 Below low normal 12 .0-15.3 (g/dL) Final Performing Location LABORATORY [facility] - [address] [place] [address]
--- OUTSIDE RECORDS SUMMARY | 2023-12-08 02:46 | External Medical Summary ---
Author Name Unknown Address Unknown Organization K1F:LABORATORY [facility] - [address] [address] Laboratory Report Ordering Provider Test Date Status MIN,MAW 11/18/2023 07:57:00 Final Observation Date Value Abnormality Reference (Units ) Status WBC, Total 11/18/2023 07:57:00 12.27 Above high normal 4.00-10.80 (K/uL) Final RBC 11/18/2023 07:57:00 2.81 3.85-5.15 (M/uL) Final Hemoglobin 11/18/2023 07:57:00 8.0 Below low normal 12.0-15.3 (g/dL) Final HCT 11/18/2023 07:57:00 24.5 Below low normal 36.0-45.2 (%) Final MCV 11/18/2023 07:57:00 87.2 81.5-97.5 (fL) Final MCH 11/18/2023 07:57:00 28.5 27.0-34.0 (pg) Final MCHC 11/18/2023 07:57:00 32.7 32.0-36.0 (g/dL) Final RDW 11/18/2023 07:57:00 14.6 11.5-15.5 (%) Final Platelets 11/18/2023 07:57:00 447 Above high normal 140-400 (K/uL) Final MPV 11/18/2023 07:57:00 10.1 6.6-11.1 (fL) Final Nucleated erythrocytes/100 leukocytes [Ratio] in Blood by Automated count 11/18/2023 07:57:00 0 <=0 (/100 WBCs) Final Performing Location LABORATORY [facility] - [address] [place] [address]
--- OUTSIDE RECORDS SUMMARY | 2023-12-08 02:46 | External Medical Summary ---
Author Name Unknown Address Unknown Organization K1F:LABORATORY [facility] - [address] [address] Laboratory Report Ordering Provider Test Date Status ANDREA LANGE 11/19/2023 00:14:00 Final Observation Date Value Abnormality Reference (Units ) Status Hemoglobin 11/19/2023 00:14:00 8.2 Below low normal 12 .0-15.3 (g/dL) Final Performing Location LABORATORY [facility] - [address] [place] [address]
--- OUTSIDE RECORDS SUMMARY | 2023-12-08 02:46 | External Medical Summary ---
Author Name Unknown Address Unknown Organization K1F:LABORATORY [facility] - [address] [place] [address] Laboratory Report Ordering Provider Test Date Status ANDREA LANGE 11/20/2023 08:13:00 Final Observation Date Value Abnormality Reference (Units ) Status BUN 11/20/2023 08:13:00 111 Above high normal 6-20 (mg/dL) Final Creatinine 11/20/2023 08:13:00 2.7 Above high normal 0.5-1.0 (mg/dL) Final Glomerular filtration rate/1.73 sq M.predicted [Volume Rate/Area] in Serum, Plasma or Blood by Creatinine-based formula (CKD-EPI) 11/20/2023 08:13:00 19 Below low normal >=60 (mL/min) Final eGFR is calculated based on the CKD-EPI 2020 equation. Sodium 11/20/2023 08:13:00 130 Below low normal 135 -146 (mmol/L) Final Potassium 11/20/2023 08:13:00 4.0 3.5-5.1 (m mol/L) Final Cl 11/20/2023 08:13:00 91 Below low normal 98- 107 (mmol/L) Final CO2 11/20/2023 08:13:00 25 22-32 (mmo l/L) Final Anion gap 11/20/2023 08:13:00 14 7-15 (mmol /L) Final Glucose 11/20/2023 08:13:00 150 Above high normal 70 -120 (mg/dL) Final Calcium 11/20/2023 08:13:00 8.5 8.4-10.2 ( mg/dL) Final Performing Location LABORATORY [facility] - [address] [place] [address]
--- OUTSIDE RECORDS SUMMARY | 2023-12-08 02:46 | External Medical Summary | Summary of Care ---
Author Name Unknown Organization [facility] Address [address] [place] [address] Phone [phone] Care Team Providers Care Fusing Machine Feeder Name Role Phone Paco Cordero MD Primary Care Provider + [phone] Reason for Visit * Auth/Cert Specialty Diagnoses / Procedures Referred By Yessenia gandara Referred To Contact [facility] [address] [place] [address] Phone: [phone] Emergency Medicine [facility] [address] [place] [address] Referral ID Status Reason Start Date Expiration Date Visits Re quested Visits Authorized [id number] Encounter Details Date Type Department Care Team (Latest Contact Info) Description 11/19/2023 10:33 AM EDT - 11/19/2023 11:59 PM EDT Hospital Encounter Cardiac Studies, [facility] [address] [place] [address] Discharge Disposition: Home - Self Care Allergies Active Allergy Reactions Criticality Noted Date Comments Amoxicillin 06/26/2014 Clarithromycin Other (Please comment) High 01/16/2023 Heart racing Dextromethorphan Hives High 01/16/2023 Doxylamine Hives High 01/16/2023 Food (See Comments) Hives 06/20/2023 Arnshane's brand 7 Grain Bread Latex 06/18/2014 Uintkmhxm-Jcaxdooqqd-Dp-Ap ap Edema face/lips/tongue,It katie High 11/11/2010 Sulfa Antibiotics Other (Please comment),Rash 08/03/2000 malaise documented as of this encounter (statuses as of 11/20/2023) Medications Medication Sig Dispensed Refills Start Date End Date Status Omeprazole 20 MG Oral Capsule Delayed Release (PriLOSEC) Take 1 Capsule by mouth daily before breakfast. 30 Capsule 3 4 Suspended Additional Information Amitriptyline HCl 100 MG Oral Tablet (Elavil) Take 1 Tablet by mouth every night at bedtime. 30 Tablet 3 4 Suspended Additional Information Insulin Aspart 100 UNIT/ML Subcutaneous Solution (NovoLOG) Glucose 80-150 (units): 0 Glucose 151-200 (units): 2 Glucose 201-250 (units): 4 Glucose 251-300 (units): 6 Glucose greater than 300 (units): 8 1 Each 12 4 Suspended Additional Information LiquaCel Oral Liquid Take 30 mL by mouth in the morning and 30 mL before bedtime. 1800 mL 11 4 06/08/19 25 Suspended Additional Information Insulin Glargine 100 UNIT/ML Subcutaneous Solution (Lantus) Inject 10 Units under the skin at bedtime. 1 Each 4 Suspended Additional Information Albuterol Sulfate HFA 108 (90 Base) MCG/ACT Inhalation Aerosol Solution Inhale 2 Puffs by mouth every 6 hours as needed for Dyspnea. 18 g 3 4 Suspended Additional Information Levothyroxine Sodium 175 MCG Oral Tablet (Levoxyl) Take 1 Tablet by mouth in the morning. (at least 30 min prior to breakfast or other meds). 30 Tablet 3 4 Suspended Additional Information Simvastatin 40 MG Oral Tablet (Zocor) Take 1 Tablet by mouth in the morning. 30 Tablet 3 4 Suspended Additional Information Acetaminophen 325 MG Oral Tablet (Tylenol) Take 2 Tablets by mouth every 6 hours as needed for Pain, Mild, Pain, Moderate or Pain, Severe. Suspended Cholecalciferol 25 MCG (1000 UT) Oral Tablet Take 50 Tablets by mouth in the morning. Suspended Ferrous Sulfate 325 (65 Fe) MG Oral Tablet (Feosol) Take 1 Tablet by mouth daily with breakfast. Suspended Fluticasone Propionate 50 MCG/ACT Nasal Suspension (Flonase) Administer 1 [place] into nostril in the morning. Suspended Folic Acid 1 MG Oral Tablet Take 1 Tablet by mouth in the morning. Suspended Loratadine 5 MG OR TABS Take 1 Tablet by mouth in the morning. Suspended metOLazone 2.5 MG Oral Tablet (Zaroxolyn) Take 1 Tablet by mouth in the morning. Suspended Magnesium Hydroxide 400 MG/5ML Oral Suspension (Milk of Magnesia) Take 30 mL by mouth daily as needed for Constipation. Suspended Ondansetron HCl 4 MG Oral Tablet (Zofran) Take 1 Tablet by mouth every 8 hours as needed for Nausea. Suspended Vitamin B-12 500 MCG Oral Lozenge Take 500 mcg by mouth in the morning. Suspended Melatonin 3 MG Oral Tablet Take 1 Tablet by mouth at bedtime. 10 Tablet 4 Suspended Additional Information Gabapentin 100 MG Oral Capsule (Neurontin) Take 1 Capsule by mouth 3 times a day as needed (neuropathicpain). 30 Capsule 4 Suspended Additional Information Patient taking differently: 200 mgOralTID(AM/NOON/HS), Reported on 11/16/2023 Polyethylene Glycol 3350 17 GM Oral Packet (Miralax) Take 1 Packet by mouth daily as needed for Constipation. 14 Each 4 Suspended Additional Information Patient taking differently:17 g OralBID (.AM/PM), Reported on 11/16/2023 Sennosides-Docusa te Sodium 8.6-50 MG Oral Tablet (Senokot-S) Take 1 Tablet by mouth 2 times a day as needed for Constipation. 10 Tablet 4 Suspended Additional Information Bisacodyl 10 MG Rectal Suppository (Dulcolax) Administer 1 Suppository into the rectum daily as needed for Constipation. 12 Suppository 4 Suspended Additional Information Bumetanide 2 MG Oral Tablet Take 1 Tablet by mouth in the morning and 1 Tablet before bedtime. 60 Tablet 5 4 Suspended Additional Information meropenem IV IV (AMBULATORY) Administer 500 mg intravenously in the morning and 500 mg before bedtime. 4 Suspended amLODIPine Besylate 2.5 MG Oral Tablet (Norvasc) Take 1 Tablet by mouth in the morning. 30 Tablet 1 4 Suspended Additional Information Albuterol Sulfate (2.5 MG/3ML) 0.083% Inhalation Nebulization Solution (Proventil) Inhale 1 Vial via nebulizer every 4 hours as needed for Shortness of Breath. 360 mL 11 4 Suspended Additional Information Vancomycin HCl 125 MG Oral Capsule (Vancocin) Take 1 Capsule by mouth daily. 4 Suspended Airborne Oral Tablet Chewable Take 1 Tablet by mouth every afternoon. Suspended traMADol HCl 50 MG Oral Tablet (Ultram) Take 1 Tablet by mouth every 4 hours as needed for Pain, Moderate or Pain, Severe. Suspended Fleet Saline Enema 7-19 GM/197ML Rectal Enema Administer 1 Each into the rectum as needed for Constipation (for no bowel movement by the end of the following shift after administration of suppository). Suspended Nitroglycerin 0.4 MG Sublingual Tablet Sublingual (Nitrostat) Place 1 Tablet under the tongue every 5 minutes as needed for Pain, Chest (notify MD if no relief after 3 tabs.). Suspended Simethicone 80 MG Oral Tablet (Bicarsim) Take 2 Tablets by mouth 2 times a day as needed for Gas or Other (indigestion). Suspended documented as of this encounter (statuses as of 11/20/2023) Active Problems Problem Noted Date Diagnosed Date PERLITA (acute kidney injury) 11/17/2023 RBBB (right bundle branch block) 11/17/2023 LAFB (left anterior fascicular block) 11/17/2023 Accelerated junctional rhythm 11/17/2023 Lethargy 11/16/2023 Fever 11/16/2023 Diarrhea 11/16/2023 Black stools 11/16/2023 Dizziness 11/16/2023 Fibromyalgia 11/16/2023 Acute osteomyelitis of calcaneum, right 11/16/19 24 Pressure injury of sacral region, unstageable Pain [...] Chronic kidney disease, stage IV (severe) 2023 Morbid obesity with BMI of 45.0-49.9, adult 05/11 Ambulatory dysfunction 04/24/2023 Diabetic ulcer of right heel 04/12/2023 Anxiety 01/16/2023 Fibromyalgia 01/16/2023 Gastroesophageal reflux disease 01/16/2023 Type 2 diabetes mellitus, wi th long-term current use of insulin 06/18/2014 Overview: ICD-10 update of inactive term Hypertension 06/18/2014 Hypothyroid 06/18/2014 documented as of this encounter (statuses as of 11/20/2023) Resolved Problems Problem Noted Date Diagnosed Date [...] as of this encounter (statuses as of 11/20/2023) Immunizations Name Administration Dates Next Due PPD [...] No 11/16/2023 documented as of this encounter Miscellaneous Notes * Ancillary Progress Note - Elvia Macias RDCS - 11/19/2023 10:35 AM EDT Echo completed at bedside. documented in this encounter Plan of Treatment Upcoming Encounters Date Type Department Care Team (Late st Contact Info) Description 12/25/2023 10:00 AM EDT Office Visit Nephrology, Katerin Wolf [address] [place], [place] [address] Joslyn Barney MD [address] [facility] [place], [place] [address] Health Maintenance Due Date Last Done Comments [...] (2 of 2) 06/15/2023 04/20/2023 COVID-19 Vaccine (2 - 2022- season) 2023 08/24/2020 Influenza Vaccine (FLU shot) (#1) 2023 12/18/2017, 10/24/2016, 01/11/2016, Additional history exists HbA1c 04/05/2024 10/04/2023, 03/2 05/2023, 11/19/2018, Additional history exists GFR 05/19/2024 11/20/2023, 09/0 11/2023, 11/18/2023, Additional history exists TSH 06/26/2024 06/27/2023, 04/0 07/2023, 06/02/2023, Additional history exists Nephrology Referral 09/16/2024 09/17/2023 PTH 09/30/2024 10/01/2023 Hgb 11/19/2024 11/20/2023, 09/0 11/2023, 11/19/2023, Additional history exists Phosphate 11/19/2024 11/20/2023, 0 09/2023, 11/02/2023, Additional history exists HPV (Gardasil) Vaccine Aged [...] Diagnosis Comments ECHO, COMPLETE (2D), TRANS-THORACIC Routine 11/19/2023 11:14 AM EDT Sepsis (HCC) documented in this encounter Results * ECHO, COMPLETE (2D), TRANS-THORACIC (11/19/2023 11:14 AM EDT) LEFT VENTRICULAR EJECTION FRACTION 55 % [facility] 11/19/2023 10:4 3 AM EDT Min Min Pearl THAKUR ECHOCARDIOLOGY [facility] documented in this encounter Additional Health Concerns Infection Onset Date Last Indicated Resolved Time C. difficile 11/06/2023 11/06/2023 documented as of this encounter Advance Directives Documents on File Type Date Recorded Patient Cook Helper Expl anation POLST 11/19/2023 signed on 08/21 [place] FOR LIFE-SUSTAINING TREATMENT POLST 10/10/2023 signed on 08/21 [place] [facility]D[place] FOR [facility]-SUSTAINING TREATMENT POLST 08/16/2023 signed on 08/12 [place] FOR LIFE-SUSTAINING TREATMENT POLST 06/17/2023 [place] [facility] FOR LIFE-SUSTAINING TREATMENT; sign on 06/14/23 * Full Code (Latest Code Status on File) Date Activated Date Inactivated Comments 11/16/2023 4:02 PM This order refl ects the patients wishes and were consensually agreed upon. Question Answer Comments Discussion of Advance Direct terry occurred with: Patient Does the patient have a Living Will? Yes, in [place] rt and reviewed as current Does the patient have Health Care Power of [place]? Yes, in chart and reviewed as current [...] 9:38 PM 06/25/2023 5:13 PM This order re flects the patients wishes and were consensually agreed upon. Question Answer Comments Discussion of Advance Directives occurred with: Patient * Full Code Date Activated Date Inactivated Comments 06/03/2023 2:50 AM 06/13/2023 7:19 PM This order re flects the patients wishes and were consensually agreed upon. Question Answer Comments Discussion of Advance Directives occurred with: Patient Care Teams Fusing Machine Feeder Relationship Specialty Start Date End Date Paco Cordero MD [address] [place] [address] PCP - General Family Medicine 09/10/23 documented as of this encounter
--- OUTSIDE RECORDS SUMMARY | 2023-12-08 02:46 | External Medical Summary ---
Author Name Unknown Address Unknown Organization K1F:LABORATORY [facility] - [address] [place] [address] Laboratory Report Ordering Provider Test Date Status JINA ANDRES 11/20/2023 08:13:00 Final Observation Date Value Abnormality Reference (Units ) Status Magnesium 11/20/2023 08:13:00 1.8 1.5-2.6 (m g/dL) Final Performing Location LABORATORY [facility] - [address] [place] [address]
--- OUTSIDE RECORDS SUMMARY | 2023-12-08 02:46 | External Medical Summary ---
Author Name Unknown Address Unknown Organization : Laboratory Report Ordering Provider Test Date Status ANDREA LANGE 11/20/2023 21:24:16 Final Observation Date Value Abnormality Reference (Units ) Status Glucose Point of Care 11/20/2023 21:24:16 181 Above high normal 70-120 (mg/dL) Final Performing Location
--- OUTSIDE RECORDS SUMMARY | 2023-12-08 02:47 | External Medical Summary ---
Author Name Unknown Address Unknown Organization K1F:LABORATORY [facility] - [address] [place] [address] Laboratory Report Ordering Provider Test Date Status LEONIDAS FAJARDO 11/16/2023 13:06:00 Final Observation Date Value Abnormality Reference (Units ) Status Lactic Acid, Whole Blood 11/16/2023 13:06:00 1.2 0.4-2.0 (mmol/L) Final Performing Location LABORATORY [facility] - [address] [place] [address]
--- OUTSIDE RECORDS SUMMARY | 2023-12-08 02:47 | External Medical Summary ---
Author Name Unknown Address Unknown Organization K1F:LABORATORY [facility] - [address] [place] [address] Laboratory Report Ordering Provider Test Date Status AILEEN KIDD 11/17/2023 05:59:00 Final Observation Date Value Abnormality Reference (Units ) Status SYNC LEUKOCYTES IN BLOOD BY AUTOMATED COUNT 11/17/2023 05:59:00 13.81 Above high normal 4.00-10.80 (K/uL) Final Segs 11/17/2023 05:59:00 79.7 Above high normal 40.0-75.0 (%) Final Lymphs % 11/17/2023 05:59:00 9.8 Below low normal 18.0-42.0 (%) Final Monos 11/17/2023 05:59:00 6.5 1.0-11.0 (%) Final Eosinophils 11/17/2023 05:59:00 2.3 0.0-6.0 (%) Final Basos 11/17/2023 05:59:00 0.3 0.0-2.0 (%) Final Immature Granulocyte, Percent 11/17/2023 05:59:00 1.4 0.0-2.0 (%) Final Absolute Segs 11/17/2023 05:59:00 11.00 Above high normal 1.80-7.70 (K/uL) Final Lymphs, absolute 11/17/2023 05:59:00 1.36 1.00-4.80 (K/ul) Final Monos, Abs 11/17/2023 05:59:00 0.90 0.00-1.10 (K/uL) Final Eos, Abs 11/17/2023 05:59:00 0.32 0.00-0.70 (K/uL) Final Basos, Abs 11/17/2023 05:59:00 0.04 0.00-0.20 (K/uL) Final Immature Granulocytes, Number 11/17/2023 05:59:00 0.19 0.00-0.20 (K/uL) Final Performing Location LABORATORY [facility] - [facility] [address] [place] [address]
--- OUTSIDE RECORDS SUMMARY | 2023-12-08 02:47 | External Medical Summary ---
Author Name Unknown Address Unknown Organization K1F:LABORATORY [facility] - [address] [place] [address] Laboratory Report Ordering Provider Test Date Status LEONIDAS FAJARDO 11/16/2023 12:36:22 Final Warfarin Therapy
INR: 2 .0-3.0 conventional anticoagulation
INR: 2.5- 3.5 high intensity anticoagulation Observation Date Value Abnormality Reference (Units ) Status PT 11/16/2023 12:36:22 19.0 Above high normal 11 .6-15.2 (seconds) Final INR 11/16/2023 12:36:22 1.6 Above high normal 0. 8-1.2 Final Performing Location LABORATORY [facility] - [address] [place] [address]
--- OUTSIDE RECORDS SUMMARY | 2023-12-08 02:47 | External Medical Summary ---
Author Name Unknown Address Unknown Organization K1F:LABORATORY [facility] - [address] [place] [address] Laboratory Report Ordering Provider Test Date Status LEONIDAS FAJARDO 11/16/2023 12:36:22 Final Observation Date Value Abnormality Reference (Units ) Status WBC, Total 11/16/2023 12:36:22 13.86 Above high normal 4.00-10.80 (K/uL) Final RBC 11/16/2023 12:36:22 2.24 3.85-5.15 (M/uL) Final Hemoglobin 11/16/2023 12:36:22 6.3 Below low normal 12.0-15.3 (g/dL) Final HCT 11/16/2023 12:36:22 19.8 Below low normal 36.0-45.2 (%) Final MCV 11/16/2023 12:36:22 88.4 81.5-97.5 (fL) Final MCH 11/16/2023 12:36:22 28.1 27.0-34.0 (pg) Final MCHC 11/16/2023 12:36:22 31.8 32.0-36.0 (g/dL) Final RDW 11/16/2023 12:36:22 14.9 11.5-15.5 (%) Final Platelets 11/16/2023 12:36:22 470 Above high normal 140-400 (K/uL) Final MPV 11/16/2023 12:36:22 10.2 6.6-11.1 (fL) Final Nucleated erythrocytes/100 leukocytes [Ratio] in Blood by Automated count 11/16/2023 12:36:22 0 <=0 (/100 WBCs) Final Performing Location LABORATORY [facility] - [address] [place] [address]
--- OUTSIDE RECORDS SUMMARY | 2023-12-08 02:47 | External Medical Summary ---
Author Name Unknown Address Unknown Organization K1F:LABORATORY [facility] - [address] [place] [address] Laboratory Report Ordering Provider Test Date Status LEONIDAS FAJARDO 11/16/2023 14:08:00 Final Observation Date Value Abnormality Reference (Units ) Status Troponin T 11/16/2023 14:08:00 419 Above upper panic limits <=14 (ng/L) Final Performing Location LABORATORY [facility] - [address] [place] [address]
--- OUTSIDE RECORDS SUMMARY | 2023-12-08 02:47 | External Medical Summary ---
Author Name Unknown Address Unknown Organization : Laboratory Report Ordering Provider Test Date Status AILEEN KIDD 11/16/2023 18:14:10 Final Observation Date Value Abnormality Reference (Units ) Status Glucose Point of Care 11/16/2023 18:14:10 130 Above high normal 70-120 (mg/dL) Final Performing Location
--- OUTSIDE RECORDS SUMMARY | 2023-12-08 02:47 | External Medical Summary ---
Author Name Unknown Address Unknown Organization K1F:LABORATORY [facility] - [address] [place] [address] Laboratory Report Ordering Provider Test Date Status AILEEN KIDD 11/17/2023 05:59:00 Final Observation Date Value Abnormality Reference (Units ) Status BUN 11/17/2023 05:59:00 131 Above high normal 6-20 (mg/dL) Final Creatinine 11/17/2023 05:59:00 3.2 Above high normal 0.5-1.0 (mg/dL) Final Glomerular filtration rate/1.73 sq M.predicted [Volume Rate/Area] in Serum, Plasma or Blood by Creatinine-based formula (CKD-EPI) 11/17/2023 05:59:00 16 Below low normal >=60 (mL/min) Final eGFR is calculated based on the CKD-EPI 2020 equation. Sodium 11/17/2023 05:59:00 132 Below low normal 135 -146 (mmol/L) Final Potassium 11/17/2023 05:59:00 4.5 3.5-5.1 (m mol/L) Final Cl 11/17/2023 05:59:00 92 Below low normal 98- 107 (mmol/L) Final CO2 11/17/2023 05:59:00 24 22-32 (mmo l/L) Final Anion gap 11/17/2023 05:59:00 16 Above high normal 7- 15 (mmol/L) Final Glucose 11/17/2023 05:59:00 161 Above high normal 70 -120 (mg/dL) Final Albumin 11/17/2023 05:59:00 2.2 Below low normal 3.8 -5.0 (g/dL) Final AST (Aspartate aminotransferase) 11/17/2023 05:59:00 17 10-35 (U/L) Fin al Alk Phos 11/17/2023 05:59:00 224 Above high normal 35 -130 (U/L) Final Bilirubin, Total 11/17/2023 05:59:00 0.4 <=1 .2 (mg/dL) Final Calcium 11/17/2023 05:59:00 8.5 8.4-10.2 ( mg/dL) Final Protein 11/17/2023 05:59:00 6.8 6.0-8.3 (g /dL) Final ALT (Alanine aminotransferase) 11/17/2023 05:59:00 10 10-35 (U/L) Dante paris Performing Location LABORATORY [address] [place] [address]
--- OUTSIDE RECORDS SUMMARY | 2023-12-08 02:47 | External Medical Summary ---
Author Name Unknown Address Unknown Organization K01:LABORATORY [facility] - [address] [place] [id number] Laboratory Report Ordering Provider Test Date Status JOEY GARCIA 11/17/2023 19:55:56 Final Observation Date Value Abnormality Reference (Units) Status Bacteria identified in Specimen by Culture 11/17/2023 19:55:56 No Aeromonas species or Plesiomonas species isolated. Final Test: Gastrointestinal Patho gen Panel Culture
Specimen Source: Stool
Specimen Type: Stool
Specimen Date: 11/17/20231954
Result Date: 11/20/202347
Result Status: Final result
Resulting Lab: LABORATORY [facility]
[address]
[place] [id number]

CULTURE

No Aeromonas species or Plesiomonas species isolated.

null Performing Location LABORATORY [facility] - [address] [place] [id number]
--- OUTSIDE RECORDS SUMMARY | 2023-12-08 02:47 | External Medical Summary ---
Author Name Unknown Address Unknown Organization : Laboratory Report Ordering Provider Test Date Status JOEY GARCIA 11/17/2023 16:41:54 Final Observation Date Value Abnormality Reference (Units ) Status Glucose Point of Care 11/17/2023 16:41:54 140 Above high normal 70-120 (mg/dL) Final Performing Location
--- OUTSIDE RECORDS SUMMARY | 2023-12-08 02:47 | External Medical Summary ---
Author Name Unknown Address Unknown Organization K1F:LABORATORY [facility] - [address] [address] Laboratory Report Ordering Provider Test Date Status MINMAW 11/17/2023 05:59:00 Final Observation Date Value Abnormality Reference (Units ) Status Troponin T 11/17/2023 05:59:00 320 Above upper panic limits <=14 (ng/L) Final Performing Location LABORATORY [facility] - [address] [place] [address]
--- OUTSIDE RECORDS SUMMARY | 2023-12-08 02:47 | External Medical Summary ---
Author Name Unknown Address Unknown Organization K01:LABORATORY [facility] - [address] [place] [address] Laboratory Report Ordering Provider Test Date Status AILEEN KIDD 11/16/2023 17:22:36 Final Observation Date Value Abnormality Reference (Units) Status Bacteria identified in Specimen by Culture 11/16/2023 17:22:36 No significant growth Final Test: Culture, Urine, Quanti tative
Specimen Source: Urine, Clean Catch
Specimen Type: Urine
Specimen Date: 11/16/2023 1722
Result Date: 11/17/2023 1621
Result Status: Final result
Resulting Lab: LABORATORY [facility]
[address]
[place] [id number]

CULTURE

No significant growth

null Performing Location LABORATORY [facility] - [address] [facility] [address]
--- OUTSIDE RECORDS SUMMARY | 2023-12-08 02:47 | External Medical Summary ---
Author Name Unknown Address Unknown Organization K1F:LABORATORY [facility] - [address] [place] [address] Laboratory Report Ordering Provider Test Date Status MIN,MAW 11/17/2023 05:59:00 Final Observation Date Value Abnormality Reference (Units ) Status Phosphate 11/17/2023 05:59:00 6.9 Above high normal 2. 5-4.8 (mg/dL) Final Performing Location LABORATORY [facility] - [address] [place] [address]
--- OUTSIDE RECORDS SUMMARY | 2023-12-08 02:47 | External Medical Summary ---
Author Name Unknown Address Unknown Organization K1F:LABORATORY [facility] - [address] [place] [address] Laboratory Report Ordering Provider Test Date Status LEONIDAS FAJARDO 11/16/2023 12:36:22 Final Less than 0.5 ng/mL: Low ris [...] [Mass/volume] in Serum or Plasma by Immunoassay 11/16/2023 12:36:22 0.22 Above high normal <0.10 (ng/mL) Final Performing Location LABORATORY [facility] - [address] [place] [address]
--- OUTSIDE RECORDS SUMMARY | 2023-12-08 02:47 | External Medical Summary ---
Author Name Unknown Address Unknown Organization : Laboratory Report Ordering Provider Test Date Status AILEEN KIDD 11/16/2023 21:25:39 Final Observation Date Value Abnormality Reference (Units ) Status Glucose Point of Care 11/16/2023 21:25:39 198 Above high normal 70-120 (mg/dL) Final Performing Location
--- OUTSIDE RECORDS SUMMARY | 2023-12-08 02:47 | External Medical Summary ---
Author Name Unknown Address Unknown Organization K1F:LABORATORY [facility] - [address] [address] Laboratory Report Ordering Provider Test Date Status MIN,MAW 11/17/2023 00:14:00 Final Observation Date Value Abnormality Reference (Units ) Status Troponin T 11/17/2023 00:14:00 332 Above upper panic limits <=14 (ng/L) Final Performing Location LABORATORY [facility] - [address] [place] [address]
--- OUTSIDE RECORDS SUMMARY | 2023-12-08 02:47 | External Medical Summary ---
Author Name Unknown Address Unknown Organization K1F:LABORATORY [facility] - [address] [place] [address] Laboratory Report Ordering Provider Test Date Status MIN,MAW 11/16/2023 16:20:00 Final Observation Date Value Abnormality Reference (Units ) Status Ammonia 11/16/2023 16:20:00 <10 Below low normal 11- 35 (umol/L) Final Performing Location LABORATORY [facility] - [address] [place] [address]
--- OUTSIDE RECORDS SUMMARY | 2023-12-08 02:47 | External Medical Summary ---
Author Name Unknown Address Unknown Organization K1F:LABORATORY [address] [place] [address] Laboratory Report Ordering Provider Test Date Status LEONIDAS FAJARDO 11/16/2023 13:06:06 Final Observation Date Value Abnormality Reference (Units ) Status Bacteria identified in Specimen by Culture 11/16/2023 13:06:06 No growth Final Test: Culture, Blood
Sp ecimen Source: Blood, Venous
Specimen Type: Blood
Specimen Date: 11/16/2023 1306
Result Date: 11/21/2023 1401
Result Status: Final result
Resulting Lab: LABORATORY [facility]
[address] [place] [address]
[address] [place] [address]

CULTURE

No growth

null Performing Location LABORATORY [facility] - [address] [place] [address] [address] [place] [address]
--- OUTSIDE RECORDS SUMMARY | 2023-12-08 02:47 | External Medical Summary ---
Author Name Unknown Address Unknown Organization K1F:LABORATORY [facility] - [address] [place] [address] Laboratory Report Ordering Provider Test Date Status LEONIDAS FAJARDO 11/16/2023 12:50:46 Final Observation Date Value Abnormality Reference (Units ) Status Color of Urine by Auto 11/16/2023 12:50:46 Yellow Colorless, Light Yellow, Yellow, Dark Yellow Final Clarity, Urine 11/16/2023 12:50:46 Slightly Cloudy Abnormal Clear Final Glucose [Mass/volume] in Urine by Automated test strip 11/16/2023 12:50:46 Negative Negative (mg/dL) Final Bilirubin.total [Presence] in Urine by Automated test strip 11/16/2023 12:50:46 Negative Negative Final Ketones [Mass/volume] in Urine by Automated test strip 11/16/2023 12:50:46 Negative Negative (mg/dL) Final Specific gravity, Urine 11/16/2023 12:50:46 1.010 1.003-1.030 Final Hemoglobin [Presence] in Urine by Automated test strip 11/16/2023 12:50:46 Small Abnormal Negative Final pH, Urine 11/16/2023 12:50:46 6.0 5.0-7.5 (Units) Final Protein [Mass/volume] in Urine by Automated test strip 11/16/2023 12:50:46 100 Abnormal Negative (mg/dL) Final Urobilinogen [Mass/volume] in Urine by Automated test strip 11/16/2023 12:50:46 0.2 0.2, 1.0 (mg/dL) Final Nitrite [Presence] in Urine by Automated test strip 11/16/2023 12:50:46 Negative Negative Final Leukocyte esterase [Presence] in Urine by Automated test strip 11/16/2023 12:50:46 Large Abnormal Negative Final RBC, Urine 11/16/2023 12:50:46 0-2 0-2 (/HPF) Final WBC, Urine 11/16/2023 12:50:46 50+ Abnormal 0-2 (/HPF) Final Bacteria [#/area] in Urine sediment by Microscopy high power field 11/16/2023 12:50:46 >200 Abnormal 0-25 (/HPF) Final Yeast [#/area] in Urine sediment by Microscopy high power field 11/16/2023 12:50:46 Present Abnormal None (/HPF) Final CULTURE, URINE - [facility] 11/16/2023 12:50:46 Final Quantitative urine culture t o be performed Performing Location LABORATORY [facility] - [address] [place] [address]
--- OUTSIDE RECORDS SUMMARY | 2023-12-08 02:47 | External Medical Summary ---
Author Name Unknown Address Unknown Organization K1F:LABORATORY [facility] - [address] [place] [address] Laboratory Report Ordering Provider Test Date Status JOEY GARCIA 11/18/2023 07:57:00 Final Observation Date Value Abnormality Reference (Units ) Status BUN 11/18/2023 07:57:00 126 Above high normal 6-20 (mg/dL) Final Creatinine 11/18/2023 07:57:00 3.2 Above high normal 0.5-1.0 (mg/dL) Final Glomerular filtration rate/1.73 sq M.predicted [Volume Rate/Area] in Serum, Plasma or Blood by Creatinine-based formula (CKD-EPI) 11/18/2023 07:57:00 16 Below low normal >=60 (mL/min) Final eGFR is calculated based on the CKD-EPI 2020 equation. Sodium 11/18/2023 07:57:00 131 Below low normal 135 -146 (mmol/L) Final Potassium 11/18/2023 07:57:00 3.9 3.5-5.1 (m mol/L) Final Cl 11/18/2023 07:57:00 91 Below low normal 98- 107 (mmol/L) Final CO2 11/18/2023 07:57:00 25 22-32 (mmo l/L) Final Anion gap 11/18/2023 07:57:00 15 7-15 (mmol /L) Final Glucose 11/18/2023 07:57:00 128 Above high normal 70 -120 (mg/dL) Final Albumin 11/18/2023 07:57:00 2.1 Below low normal 3.8 -5.0 (g/dL) Final AST (Aspartate aminotransferase) 11/18/2023 07:57:00 18 10-35 (U/L) Fin al Alk Phos 11/18/2023 07:57:00 217 Above high normal 35 -130 (U/L) Final Bilirubin, Total 11/18/2023 07:57:00 0.3 <=1 .2 (mg/dL) Final Calcium 11/18/2023 07:57:00 8.4 8.4-10.2 ( mg/dL) Final Protein 11/18/2023 07:57:00 6.6 6.0-8.3 (g /dL) Final ALT (Alanine aminotransferase) 11/18/2023 07:57:00 10 10-35 (U/L) Dante paris Performing Location LABORATORY [facility] - [address] [place], [place] [address] [place] [address]
--- OUTSIDE RECORDS SUMMARY | 2023-12-08 02:47 | External Medical Summary ---
Author Name Unknown Address Unknown Organization K1F:LABORATORY [facility] - [address] [address] Laboratory Report Ordering Provider Test Date Status BERNABEMAW 11/16/2023 18:35:00 Final Observation Date Value Abnormality Reference (Units ) Status Hemoglobin 11/16/2023 18:35:00 7.5 Below low normal 12 .0-15.3 (g/dL) Final Performing Location LABORATORY [facility] - [address] [place] [address]
--- OUTSIDE RECORDS SUMMARY | 2023-12-08 02:47 | External Medical Summary | Summary of Care ---
Author Name Unknown Organization [facility] Address [address] [place] [address] Phone [phone] Care Team Providers Care Civil Cadd Technician Name Role Phone Paco Cordero MD Primary Care Provider + [phone] Reason for Visit * Reason Onset Date Comments Test Results Lab 11/16/2023 Encounter Details Date Type Department Care Team (Late st Contact Info) Description 11/16/2023 Telephone Nephrology, [address] [address] Isaías Crespo MD [address] [place] [id number] Test Results Lab Allergies Active Allergy Reactions Criticality Noted Date Comments Amoxicillin 06/26/2014 Clarithromycin Other (Please comment) High 01/16/2023 Heart racing Dextromethorphan Hives High 01/16/2023 Doxylamine Hives High 01/16/2023 Food (See Comments) Hives 06/20/2023 Arnshane[employer] brand 7 Grain Bread Latex 06/18/2014 Ofeofoiwr-Yxoirckxfx-Wf-Ap ap Edema face/lips/tongue,It katie High 11/11/2010 Sulfa Antibiotics Other (Please comment),Rash 08/03/2000 malaise documented as of this encounter (statuses as of 11/16/2023) Medications Medication Sig Dispensed Refills Start Date End Date Status Omeprazole 20 MG Oral Capsule Delayed Release (PriLOSEC) Take 1 Capsule by mouth daily before breakfast. 30 Capsule 3 06/14/2023 Active Amitriptyline HCl 100 MG Oral Tablet (Elavil) Take 1 Tablet by mouth every night at bedtime. 30 Tablet 3 06/13/2023 Active hydrOXYzine HCl 50 MG Oral Tablet Take 1 Tablet by mouth every 8 hours as needed for Anxiety. 30 Tablet 06/13/2023 Active Insulin Aspart 100 UNIT/ML Subcutaneous Solution (NovoLOG) Glucose 80-150 (units): 0 Glucose 151-200 (units): 2 Glucose 201-250 (units): 4 Glucose 251-300 (units): 6 Glucose greater than 300 (units): 8 1 Each 12 06/13/2023 Active LiquaCel Oral Liquid Take 30 mL by mouth in the morning and 30 mL before bedtime. 1800 mL 06/13/2023 Active Insulin Glargine 100 UNIT/ML Subcutaneous Solution (Lantus) Inject 10 Units under the skin at bedtime. 1 Each 06/13/2023 Active Albuterol Sulfate HFA 108 (90 Base) MCG/ACT Inhalation Aerosol Solution Inhale 2 Puffs by mouth every 6 hours as needed for Dyspnea. 18 g 06/13/2023 Active Levothyroxine Sodium 175 MCG Oral Tablet (Levoxyl) Take 1 Tablet by mouth in the morning. (at least 30 min prior to breakfast or other meds). 30 Tablet 3 06/13/2023 Active Simvastatin 40 MG Oral Tablet (Zocor) Take 1 Tablet by mouth in the morning. 30 Tablet 06/13/2023 Active Acetaminophen 325 MG Oral Tablet (Tylenol) Take 2 Tablets by mouth every 6 hours as needed for Pain, Mild, Pain, Moderate or Pain, Severe. Active Cholecalciferol 10 MCG (400 UNIT) Oral Tablet (Vitamin D3) Take 50 Tablets by mouth in the morning. Active Ferrous Sulfate 325 (65 Fe) MG Oral Tablet (Feosol) Take 1 Tablet by mouth daily with breakfast. Active Fluticasone Propionate 50 MCG/ACT Nasal Suspension (Flonase) Administer 1 [place] into nostril in the morning. Active Folic Acid 1 MG Oral Tablet Take 1 Tablet by mouth in the morning. Active Loratadine 5 MG OR TABS Take 1 Tablet by mouth in the morning. Active metOLazone 2.5 MG Oral Tablet (Zaroxolyn) Take 1 Tablet by mouth in the morning. Active Magnesium Hydroxide 400 MG/5ML Oral Suspension (Milk of Magnesia) Take 30 mL by mouth daily as needed for Constipation. Active Ondansetron HCl 4 MG Oral Tablet (Zofran) Take 1 Tablet by mouth every 8 hours as needed for Nausea. Active CYANOCOBALAMIN 250 MCG OR TABS Take 1 Tablet by mouth in the morning. Active Diclofenac Sodium 1 % External Gel (Voltaren Arthritis Pain) Apply 1 % topically to affected area 4 times a day as needed for Pain, Moderate or Pain, Severe. Apply to shoulder, affected area Active Melatonin 3 MG Oral Tablet Take 1 Tablet by mouth at bedtime. 10 Tablet 08/21/2023 Active Gabapentin 100 MG Oral Capsule (Neurontin) Take 1 Capsule by mouth 3 times a day as needed (neuropathicpain). 30 Capsule 08/21/2023 Active Sodium Hypochlorite 0.25 % External Solution Apply topically to affected area daily. 473 mL 08/22/2023 Active Polyethylene Glycol 3350 17 GM Oral Packet (Miralax) Take 1 Packet by mouth daily as needed for Constipation. 14 Each 08/21/2023 Active Sennosides-Docusa te Sodium 8.6-50 MG Oral Tablet (Senokot-S) Take 1 Tablet by mouth 2 times a day as needed for Constipation. 10 Tablet 08/21/2023 Active Bisacodyl 5 MG Oral Tablet Delayed Release (Dulcolax) Take 1 Tablet by mouth daily as needed for Constipation. 30 Tablet 08/21/2023 Active Bisacodyl 10 MG Rectal Suppository (Dulcolax) Administer 1 Suppository into the rectum daily as needed for Constipation. 12 Suppository 08/21/2023 Active Bumetanide 2 MG Oral Tablet Take 1 Tablet by mouth in the morning and 1 Tablet before bedtime. 60 Tablet 5 09/17/2023 Active guaiFENesin 100 MG/5ML Oral Liquid (Robitussin) Take 10 mL by mouth every 4 hours as needed for Cough. 120 mL 10/08/2023 Active meropenem IV IV (AMBULATORY) Administer 500 mg intravenously in the morning and 500 mg before bedtime. 10/08/2023 Active amLODIPine Besylate 2.5 MG Oral Tablet (Norvasc) Take 1 Tablet by mouth in the morning. 30 Tablet 1 10/08/2023 Active Albuterol Sulfate (2.5 MG/3ML) 0.083% Inhalation Nebulization Solution (Proventil) Inhale 1 Vial via nebulizer every 4 hours as needed for Shortness of Breath. 360 mL 11 10/09/2023 Active Vancomycin HCl 125 MG Oral Capsule (Vancocin) Take 1 Capsule by mouth daily. 11/06/2023 Active documented as of this encounter (statuses as of 11/16/2023) Active Problems Problem Noted Date Diagnosed Date Anemia of chronic renal failure, stage 4 (severe ) 10/04/2023 Acute osteomyelitis of calcaneum, right 10/03/19 Elevated troponin 08/16/2023 Demand ischemia 08/16/2023 Hyponatremia 08/16/2023 Hypoalbuminemia 08/16/2023 Bifascicular bundle branch block [...] disease, stage IV (severe) 2023 Morbid obesity 06/03/2023 Ambulatory dysfunction 04/24/2023 Diabetic ulcer of right heel 04/12/2023 Anxiety 01/16/2023 Fibromyalgia 01/16/2023 Gastroesophageal reflux disease 01/16/2023 Type 2 diabetes mellitus, wi th long-term current use of insulin 06/18/2014 Overview: ICD-10 update of inactive term Hypertension 06/18/2014 Hypothyroid 06/18/2014 documented as of this encounter (statuses as of 11/16/2023) Resolved Problems Problem Noted Date Diagnosed Date Resolved Date Acute renal failure with acu te tubular necrosis superimposed on stage 4 chronic kidney disease 10/08/2023 10/09/2023 Acute renal failure superimp osed on stage 4 chronic kidney disease 10/04/2023 10/08/2023 Severe sepsis with acute organ dysfunction 10/04/2023 10/08/2023 Acute on chronic respiratory failure with hypoxia 10/03/2023 10/08/2023 Rhinovirus infection 08/21/2023 024 Hyperkalemia 08/16/2023 10/04/2023 Cellulitis of index finger 06/19/2023 0 06/25/2023 Anasarca 06/18/2023 10/04/2023 Atypical chest pain 06/17/2023 10/04/19 BPPV (benign paroxysmal positional vertigo) 06/17/2023 06/18/2023 Hypokalemia 06/17/2023 06/19/2023 Hypomagnesemia 06/17/2023 06/25/2023 documented as of this encounter (statuses as of 11/16/2023) Immunizations Name Administration Dates Next Due PPD [...] do you have serious difficulty hearing? No 10/03/2023 Are you blind or do you have serious difficulty seeing, even when wearing glasses? Yes-decreased vision 10/03/19 Do you have serious difficul ty walking or climbing stairs? (5 years old or older) Yes 10/03/2023 Do you have difficulty dress ing or bathing? (5 years old or older) Yes 10/03/2023 Because of a physical, menta l, or emotional condition, do you have difficulty doing errands alone such as visiting a doctor s office or shopping? (15 years old or older) Yes 10/03/19 Cognitive Status Response Date of Assessm ent Because of a physical, menta l, or emotional condition, do you have serious difficulty concentrating, remembering, or making decisions? (5 years old or older) Yes 10/03/2023 documented as of this encounter Miscellaneous Notes * Telephone Encounter - Agustina Delvalle RN - 11/16/2023 11:51 AM EDT Nurse contacted at [facility]. She reports pt is on her way to ER currently. * Telephone Encounter - Agustina Delvalle RN - 11/16/2023 8:39 AM EDT Please review labs from AM and advise. * Telephone Encounter - Linda Whitmore OSA - 11/16/2023 8:13 AM EDT Labs returned concerning from this morning 11/16/23. They are in patient chart. Nursing facility would like guidance on what to do for the patient. PHONE NUMBER: [phone] Extension 108 documented in this encounter Plan of Treatment Upcoming Encounters Date Type Department Care Team (Late st Contact Info) Description 12/25/2023 10:00 AM EDT Office Visit [facility] [address] [place] [address] Joslyn Barney MD [address] [place] [id number] Health Maintenance Due Date Last Done Comments [...] 2) 06/15/2023 04/20/2023 COVID-19 Vaccine (2 - season) 2023 08/24/2020 Influenza Vaccine (FLU shot) (#1) 2023 12/18/2017, 10/24/2016, 01/11/2016, Additional history exists HbA1c 04/05/2024 10/04/2023, 05/11, 11/19/2018, Additional history exists GFR 05/15/2024 11/16/2023, 10/12, 11/05/2023, Additional history exists TSH 06/26/2024 06/27/2023, 04/0 07/2023, 06/02/2023, Additional history exists Nephrology Referral 09/16/2024 09/17/2023 PTH 09/30/2024 10/01/2023 Phosphate 11/01/2024 11/02/2023, 10/10, 10/19/2023, Additional history exists Hgb 11/15/2024 11/16/2023, 10/12, 11/05/2023, Additional history exists HPV (Gardasil) Vaccine Aged [...] Not on filedocumented as of this encounter Additional Health Concerns Infection Onset Date Last Indicated Resolved Time C. 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 10/10/2023 signed on 08/21 [place] ORDERS FOR LIFE-SUSTAINING TREATMENT POLST 08/16/2023 signed on 08/12 [place] ORDERS FOR LIFE-SUSTAINING TREATMENT POLST 06/17/2023 [place] [facility]; sign on 06/14/23 * Full Code (Latest Code Status on File) Date Activated Date Inactivated Comments 10/03/2023 7:52 [...] Advance Directives occurred with: Patient Care Teams Civil Cadd Technician Relationship Specialty Start Date End Date Paco Cordero MD [address] [id number] PCP - General Family Medicine 09/10/23 documented as of this encounter
--- OUTSIDE RECORDS SUMMARY | 2023-12-08 02:47 | External Medical Summary ---
Author Name Unknown Address Unknown Organization K01:LABORATORY [facility] [place] - [address] [facility] [address] Laboratory Report Ordering Provider Test Date Status JOEY GARCIA 11/17/2023 19:55:56 Final Observation Date Value Abnormality Reference (Units ) Status Campylobacter sp DNA.diarrheagenic [Presence] in Stool by BLAISE with probe detection 11/17/2023 19:55:56 Negative Negative Final Salmonella sp rpoD gene [Presence] in Stool by BLAISE with probe detection 11/17/2023 19:55:56 Negative Negative Final Shigella species+EIEC invasion plasmid antigen H ipaH gene [Presence] in Stool by BLAISE with probe detection 11/17/2023 19:55:56 Negative Negative Final Vibrio sp DNA [Identifier] in Specimen by BLAISE with probe detection 11/17/2023 19:55:56 Negative Negative Final Yersinia enterocolitica recN gene [Presence] in Stool by BLAISE with probe detection 11/17/2023 19:55:56 Negative Negative Final Escherichia coli Stx1 toxin stx1 gene [Presence] in Stool by BLAISE with probe detection 11/17/2023 19:55:56 Negative Negative Final Escherichia coli Stx2 toxin stx2 gene [Presence] in Stool by BLAISE with probe detection 11/17/2023 19:55:56 Negative Negative Final Norovirus genogroups I and II RNA panel - Stool by BLAISE with probe detection 11/17/2023 19:55:56 Negative Negative Final Rotavirus A RNA [Presence] in Stool by BLAISE with probe detection 11/17/2023 19:55:56 Negative Negative Final Performing Location LABORATORY [facility] [place] - [address] [facility] [address]
--- OUTSIDE RECORDS SUMMARY | 2023-12-08 02:47 | External Medical Summary ---
Author Name Unknown Address Unknown Organization K01:LABORATORY [facility] [place] - [address] [place] [address] Laboratory Report Ordering Provider Test Date Status AILEEN KIDD 11/16/2023 17:22:36 Final Observation Date Value Abnormality Reference (Units ) Status Methicillin resistant Staphylococcus aureus (MRSA) DNA [Presence] in Nose by BLAISE with probe detection 11/16/2023 17:22:36 Negative Negative Final No Methicillin resistant Sta phylococcus aureus detected by PCR (amplified probe). Performing Location [facility]ORY [facility] [address] [place] [address]
--- OUTSIDE RECORDS SUMMARY | 2023-12-08 02:47 | External Medical Summary ---
Author Name Unknown Address Unknown Organization : Laboratory Report Ordering Provider Test Date Status JOEY GARCIA 11/17/2023 11:19:07 Final Observation Date Value Abnormality Reference (Units ) Status Glucose Point of Care 11/17/2023 11:19:07 168 Above high normal 70-120 (mg/dL) Final Performing Location
--- OUTSIDE RECORDS SUMMARY | 2023-12-08 02:47 | External Medical Summary ---
Author Name Unknown Address Unknown Organization K1F:LABORATORY [facility] - [address] [place] [address] Laboratory Report Ordering Provider Test Date Status LEONIDAS FAJARDO 11/16/2023 12:36:07 Final Observation Date Value Abnormality Reference (Units) Status Source 11/16/2023 12:36:07 Semi-liquid Final Clostridioides difficile toxin and [id number] strain DNA panel - Stool by BLAISE with probe detection 11/16/2023 12:36:07 Negative. No C. difficile toxin B gene DNA detected by PCR (Amplified Probe). Negative Final Performing Location LABORATORY [facility] - [address] [place] [address]
--- OUTSIDE RECORDS SUMMARY | 2023-12-08 02:47 | External Medical Summary ---
Author Name Unknown Address Unknown Organization : Laboratory Report Ordering Provider Test Date Status ANDREA LANGE 11/18/2023 07:30:34 Final Observation Date Value Abnormality Reference (Units ) Status Glucose Point of Care 11/18/2023 07:30:34 121 Above high normal 70-120 (mg/dL) Final Performing Location
--- OUTSIDE RECORDS SUMMARY | 2023-12-08 02:47 | External Medical Summary ---
Author Name Unknown Address Unknown Organization K1F:LABORATORY [facility] - [address] [place] [address] Laboratory Report Ordering Provider Test Date Status MIN,MAW 11/17/2023 05:59:00 Final Observation Date Value Abnormality Reference (Units ) Status WBC, Total 11/17/2023 05:59:00 13.81 Above high normal 4.00-10.80 (K/uL) Final RBC 11/17/2023 05:59:00 2.93 3.85-5.15 (M/uL) Final Hemoglobin 11/17/2023 05:59:00 8.1 Below low normal 12.0-15.3 (g/dL) Final HCT 11/17/2023 05:59:00 25.2 Below low normal 36.0-45.2 (%) Final MCV 11/17/2023 05:59:00 86.0 81.5-97.5 (fL) Final MCH 11/17/2023 05:59:00 27.6 27.0-34.0 (pg) Final MCHC 11/17/2023 05:59:00 32.1 32.0-36.0 (g/dL) Final RDW 11/17/2023 05:59:00 14.6 11.5-15.5 (%) Final Platelets 11/17/2023 05:59:00 444 Above high normal 140-400 (K/uL) Final MPV 11/17/2023 05:59:00 9.6 6.6-11.1 (fL) Final Nucleated erythrocytes/100 leukocytes [Ratio] in Blood by Automated count 11/17/2023 05:59:00 0 <=0 (/100 WBCs) Final Performing Location LABORATORY [facility] - [address] [place] [address]
--- OUTSIDE RECORDS SUMMARY | 2023-12-08 02:47 | External Medical Summary ---
Author Name Unknown Address Unknown Organization K1F:LABORATORY [facility] - [address] [place] [address] Laboratory Report Ordering Provider Test Date Status LEONIDAS FAJARDO 11/16/2023 13:06:00 Final Observation Date Value Abnormality Reference (Units ) Status Body temperature 11/16/2023 13:06:00 37.0 (C) Final pH of Venous blood 11/16/2023 13:06:00 7.369 7.320-7.430 (units) Final Carbon dioxide [Partial pressure] in Venous blood 11/16/2023 13:06:00 48.2 40.0-60.0 (mmHg) Final Oxygen [Partial pressure] in Venous blood 11/16/2023 13:06:00 36.8 25.0-50.0 (mmHg) Final Base excess, Capillary 11/16/2023 13:06:00 2.2 Above high normal -2.0-2.0 (mmol/L) Final Hemoglobin [Mass/volume] in Blood by Oximetry 11/16/2023 13:06:00 6.7 Below low normal 12.0-15.3 (g/dL) Final Oxyhemoglobin, Venous (FO2HB) 11/16/2023 13:06:00 57.3 40.0-85.0 (% total Hgb) Final Carboxyhemoglobin 11/16/2023 13:06:00 2.0 Above high normal <=1.5 (% total Hgb) Final Smokers: 0-9.0 % Methemoglobin 11/16/2023 13:06:00 0.5 <= 1.5 (% total Hgb) Final Deoxyhemoglobin/Hemoglo bin.total in Venous blood 11/16/2023 13:06:00 40.2 (% total Hgb) Final Oxygen content in Venous blood 11/16/2023 13:06:00 5.5 Below low normal 7.0-18.0 (%vol) F inal Bicarbonate, Venous, POC (i-STAT) 11/16/2023 13:06:00 27.1 23.0-31.0 (mmol/L) Final Performing Location LAB[facility]ATORY [facility] [address] [place] [address]
--- OUTSIDE RECORDS SUMMARY | 2023-12-08 02:48 | External Medical Summary ---
Author Name Unknown Address Unknown Organization K1F:LABORATORY [facility] - [address] [place] [address] Laboratory Report Ordering Provider Test Date Status BRONWYN BERNARD 10/26/2023 04:08:00 Final Observation Date Value Abnormality Reference (Units ) Status WBC, Total 10/26/2023 04:08:00 7.98 4.00-10.80 (K/uL) Final RBC 10/26/2023 04:08:00 2.54 3.85-5.15 (M/uL) Final Hemoglobin 10/26/2023 04:08:00 7.2 Below low normal 12.0-15.3 (g/dL) Final HCT 10/26/2023 04:08:00 22.2 Below low normal 36.0-45.2 (%) Final MCV 10/26/2023 04:08:00 87.4 81.5-97.5 (fL) Final MCH 10/26/2023 04:08:00 28.3 27.0-34.0 (pg) Final MCHC 10/26/2023 04:08:00 32.4 32.0-36.0 (g/dL) Final RDW 10/26/2023 04:08:00 15.1 11.5-15.5 (%) Final Platelets 10/26/2023 04:08:00 331 140-400 (K/uL) Final MPV 10/26/2023 04:08:00 10.8 6.6-11.1 (fL) Final Nucleated erythrocytes/100 leukocytes [Ratio] in Blood by Automated count 10/26/2023 04:08:00 0 <=0 (/100 WBCs) Final Performing Location LABORATORY [facility] - [address] [place] [address]
--- OUTSIDE RECORDS SUMMARY | 2023-12-08 02:48 | External Medical Summary ---
Author Name Unknown Address Unknown Organization K1F:LABORATORY [facility] - [address] [place] [address] Laboratory Report Ordering Provider Test Date Status BRONWYN BERNARD 11/15/2023 21:45:00 Final Observation Date Value Abnormality Reference (Units ) Status Color of Urine by Auto 11/15/2023 21:45:00 Yellow Light Yellow, Yellow, Dark Yellow Final Clarity, Urine 11/15/2023 21:45:00 Slightly Cloudy Abnormal Clear Final Glucose [Mass/volume] in Urine by Automated test strip 11/15/2023 21:45:00 100 Abnormal Negative (mg/dL) Final Bilirubin.total [Presence] in Urine by Automated test strip 11/15/2023 21:45:00 Moderate Abnormal Negative Final Ketones [Mass/volume] in Urine by Automated test strip 11/15/2023 21:45:00 Negative Negative (mg/dL) Final Specific gravity, Urine 11/15/2023 21:45:00 1.014 1.003-1.030 Final Hemoglobin [Presence] in Urine by Automated test strip 11/15/2023 21:45:00 Large Abnormal Negative Final pH, Urine 11/15/2023 21:45:00 7.0 5.0-7.5 (Units) Final Protein [Mass/volume] in Urine by Automated test strip 11/15/2023 21:45:00 100 Abnormal Negative (mg/dL) Final Urobilinogen [Mass/volume] in Urine by Automated test strip 11/15/2023 21:45:00 0.2 0.2, 1.0 (mg/dL) Final Nitrite [Presence] in Urine by Automated test strip 11/15/2023 21:45:00 Negative Negative Final Leukocyte esterase [Presence] in Urine by Automated test strip 11/15/2023 21:45:00 Moderate Abnormal Negative Final Performing Location [facility]ORY [facility] [address] [facility] [place] [address]
--- OUTSIDE RECORDS SUMMARY | 2023-12-08 02:48 | External Medical Summary ---
Author Name Unknown Address Unknown Organization K1F:LABORATORY [facility] - [address] [place] [address] Laboratory Report Ordering Provider Test Date Status LEONIDAS FAJARDO 11/16/2023 12:36:22 Final Observation Date Value Abnormality Reference (Units ) Status Troponin T 11/16/2023 12:36:22 427 Above upper panic limits <=14 (ng/L) Final Performing Location LABORATORY [facility] - [address] [place] [address]
--- OUTSIDE RECORDS SUMMARY | 2023-12-08 02:48 | External Medical Summary ---
Author Name Unknown Address Unknown Organization K1F:LABORATORY [facility] - [address] [place] [address] Laboratory Report Ordering Provider Test Date Status BRONWYN BERNARD 11/05/2023 04:30:00 Final Observation Date Value Abnormality Reference (Units ) Status WBC, Total 11/05/2023 04:30:00 16.74 Above high normal 4.00-10.80 (K/uL) Final RBC 11/05/2023 04:30:00 2.96 3.85-5.15 (M/uL) Final Hemoglobin 11/05/2023 04:30:00 8.3 Below low normal 12.0-15.3 (g/dL) Final HCT 11/05/2023 04:30:00 26.1 Below low normal 36.0-45.2 (%) Final MCV 11/05/2023 04:30:00 88.2 81.5-97.5 (fL) Final MCH 11/05/2023 04:30:00 28.0 27.0-34.0 (pg) Final MCHC 11/05/2023 04:30:00 31.8 32.0-36.0 (g/dL) Final RDW 11/05/2023 04:30:00 14.8 11.5-15.5 (%) Final Platelets 11/05/2023 04:30:00 409 Above high normal 140-400 (K/uL) Final MPV 11/05/2023 04:30:00 10.5 6.6-11.1 (fL) Final Nucleated erythrocytes/100 leukocytes [Ratio] in Blood by Automated count 11/05/2023 04:30:00 0 <=0 (/100 WBCs) Final Performing Location LABORATORY [facility] - [address] [place] [address]
--- OUTSIDE RECORDS SUMMARY | 2023-12-08 02:48 | External Medical Summary ---
Author Name Unknown Address Unknown Organization K1F:LABORATORY [facility] - [address] [place] [address] Laboratory Report Ordering Provider Test Date Status BRONWYN BERNARD 11/02/2023 04:20:00 Final Observation Date Value Abnormality Reference (Units ) Status WBC, Total 11/02/2023 04:20:00 8.89 4.00-10.80 (K/uL) Final RBC 11/02/2023 04:20:00 2.59 3.85-5.15 (M/uL) Final Hemoglobin 11/02/2023 04:20:00 7.2 Below low normal 12.0-15.3 (g/dL) Final HCT 11/02/2023 04:20:00 23.0 Below low normal 36.0-45.2 (%) Final MCV 11/02/2023 04:20:00 88.8 81.5-97.5 (fL) Final MCH 11/02/2023 04:20:00 27.8 27.0-34.0 (pg) Final MCHC 11/02/2023 04:20:00 31.3 32.0-36.0 (g/dL) Final RDW 11/02/2023 04:20:00 15.0 11.5-15.5 (%) Final Platelets 11/02/2023 04:20:00 386 140-400 (K/uL) Final MPV 11/02/2023 04:20:00 10.5 6.6-11.1 (fL) Final Nucleated erythrocytes/100 leukocytes [Ratio] in Blood by Automated count 11/02/2023 04:20:00 0 <=0 (/100 WBCs) Final Performing Location LABORATORY [facility] - [address] [place] [address]
--- OUTSIDE RECORDS SUMMARY | 2023-12-08 02:48 | External Medical Summary ---
Author Name Unknown Address Unknown Organization K1F:LABORATORY [facility] - [address] [place] [address] [address] [place] [address] Laboratory Report Ordering Provider Test Date Status BRONWYN BERNARD 11/05/2023 15:45:00 Final Observation Date Value Abnormality Reference (Units ) Status Bacteria identified in Specimen by Culture 11/05/2023 15:45:00 No growth Final Test: Culture, Blood
Sp ecimen Source: Blood, Venous
Specimen Type: Blood
Specimen Date: 11/05/2023 1545
Result Date: 11/10/2023 170
Result Status: Final result
Resulting Lab: LABORATORY [facility]
[address] [place] [address]
[place] [address]

CULTURE

No growth

null Performing Location LABORATORY [facility] - [address] [place] [address] [address] [place] [address]
--- OUTSIDE RECORDS SUMMARY | 2023-12-08 02:48 | External Medical Summary ---
Author Name Unknown Address Unknown Organization K1F:LABORATORY [facility] - [address] [place] [address] Laboratory Report Ordering Provider Test Date Status BRONWYN BERNARD 11/16/2023 04:53:00 Final Observation Date Value Abnormality Reference (Units ) Status WBC, Total 11/16/2023 04:53:00 15.17 Above high normal 4.00-10.80 (K/uL) Final RBC 11/16/2023 04:53:00 2.22 3.85-5.15 (M/uL) Final Hemoglobin 11/16/2023 04:53:00 6.3 Below low normal 12.0-15.3 (g/dL) Final HCT 11/16/2023 04:53:00 19.4 Below low normal 36.0-45.2 (%) Final MCV 11/16/2023 04:53:00 87.4 81.5-97.5 (fL) Final MCH 11/16/2023 04:53:00 28.4 27.0-34.0 (pg) Final MCHC 11/16/2023 04:53:00 32.5 32.0-36.0 (g/dL) Final RDW 11/16/2023 04:53:00 14.8 11.5-15.5 (%) Final Platelets 11/16/2023 04:53:00 469 Above high normal 140-400 (K/uL) Final MPV 11/16/2023 04:53:00 10.4 6.6-11.1 (fL) Final Nucleated erythrocytes/100 leukocytes [Ratio] in Blood by Automated count 11/16/2023 04:53:00 0 <=0 (/100 WBCs) Final Performing Location LABORATORY [facility] - [address] [place] [address]
--- OUTSIDE RECORDS SUMMARY | 2023-12-08 02:48 | External Medical Summary ---
Author Name Unknown Address Unknown Organization K1F:LABORATORY [facility] - [address] [place] [address] Laboratory Report Ordering Provider Test Date Status BRONWYN BERNARD 11/09/2023 04:10:00 Final Observation Date Value Abnormality Reference (Units ) Status SYNC LEUKOCYTES IN BLOOD BY AUTOMATED COUNT 11/09/2023 04:10:00 12.10 Above high normal 4.00-10.80 (K/uL) Final Segs 11/09/2023 04:10:00 78.0 Above high normal 40.0-75.0 (%) Final Lymphs % 11/09/2023 04:10:00 13.1 Below low normal 18.0-42.0 (%) Final Monos 11/09/2023 04:10:00 5.6 1.0-11.0 (%) Final Eosinophils 11/09/2023 04:10:00 2.4 0.0-6.0 (%) Final Basos 11/09/2023 04:10:00 0.2 0.0-2.0 (%) Final Immature Granulocyte, Percent 11/09/2023 04:10:00 0.7 0.0-2.0 (%) Final Absolute Segs 11/09/2023 04:10:00 9.43 Above high normal 1.80-7.70 (K/uL) Final Lymphs, absolute 11/09/2023 04:10:00 1.59 1.00-4.80 (K/ul) Final Monos, Abs 11/09/2023 04:10:00 0.68 0.00-1.10 (K/uL) Final Eos, Abs 11/09/2023 04:10:00 0.29 0.00-0.70 (K/uL) Final Basos, Abs 11/09/2023 04:10:00 0.02 0.00-0.20 (K/uL) Final Immature Granulocytes, Number 11/09/2023 04:10:00 0.09 0.00-0.20 (K/uL) Final Performing Location LABORATORY [facility] - [facility] [address] [place] [address]
--- OUTSIDE RECORDS SUMMARY | 2023-12-08 02:48 | External Medical Summary ---
Author Name Unknown Address Unknown Organization K1F:LABORATORY [facility] - [address] [place] [address] Laboratory Report Ordering Provider Test Date Status LEONIDAS FAJARDO 11/16/2023 12:36:22 Final Observation Date Value Abnormality Reference (Units ) Status CRP, low-sensitivity 11/16/2023 12:36:22 147 Above high normal <=5 (mg/L) Final Performing Location LABORATORY [facility] - [address] [place] [address]
--- OUTSIDE RECORDS SUMMARY | 2023-12-08 02:48 | External Medical Summary ---
Author Name Unknown Address Unknown Organization K1F:LABORATORY [facility] - [address] [place] [address] Laboratory Report Ordering Provider Test Date Status BRONWYN BERNARD 11/09/2023 04:10:00 Final Observation Date Value Abnormality Reference (Units ) Status BUN 11/09/2023 04:10:00 141 Above high normal 6-20 (mg/dL) Final Creatinine 11/09/2023 04:10:00 3.9 Above high normal 0.5-1.0 (mg/dL) Final Glomerular filtration rate/1.73 sq M.predicted [Volume Rate/Area] in Serum, Plasma or Blood by Creatinine-based formula (CKD-EPI) 11/09/2023 04:10:00 12 Below low normal >=60 (mL/min) Final eGFR is calculated based on the CKD-EPI 2020 equation. Sodium 11/09/2023 04:10:00 130 Below low normal 135 -146 (mmol/L) Final Potassium 11/09/2023 04:10:00 4.9 3.5-5.1 (m mol/L) Final Cl 11/09/2023 04:10:00 91 Below low normal 98- 107 (mmol/L) Final CO2 11/09/2023 04:10:00 24 22-32 (mmo l/L) Final Anion gap 11/09/2023 04:10:00 15 7-15 (mmol /L) Final Glucose 11/09/2023 04:10:00 112 70-120 (mg /dL) Final Albumin 11/09/2023 04:10:00 2.1 Below low normal 3.8 -5.0 (g/dL) Final AST (Aspartate aminotransferase) 11/09/2023 04:10:00 40 Above high normal 10-35 (U/L) Final Alk Phos 11/09/2023 04:10:00 248 Above high normal 35 -130 (U/L) Final Bilirubin, Total 11/09/2023 04:10:00 0.2 <=1 .2 (mg/dL) Final Calcium 11/09/2023 04:10:00 7.7 Below low normal 8.4 -10.2 (mg/dL) Final Protein 11/09/2023 04:10:00 5.5 Below low normal 6.0 -8.3 (g/dL) Final ALT (Alanine aminotransferase) 11/09/2023 04:10:00 18 10-35 (U/L) Dante paris [facility] Location LABORATORY [facility] - [address] [place] [address] [address] [place] [address]
--- OUTSIDE RECORDS SUMMARY | 2023-12-08 02:48 | External Medical Summary | Summary of Care ---
Author Name Unknown Organization [facility] Address [address] [place] [address] Phone [phone] Care Team Providers Care Winery Cellar Hand Name Role Phone Paco Cordero MD Primary Care Provider + [phone] Reason for Visit * Reason Comments Hospital Follow-Up Encounter Details Date Type Department Care Team (Latest Contact Info) Description 11/13/2023 11:00 AM EDT Office Visit Infectious Disease, [address] [address] Ricky Carnes MD [address] [place] [address] Acute osteomyelitis of calcaneum, right (HCC)*; Type 2 diabetes mellitus with peripheral neuropathy (HCC) Allergies Active Allergy Reactions Criticality Noted Date Comments Amoxicillin 06/26/2014 Clarithromycin Other (Please comment) High 01/16/2023 Heart racing Dextromethorphan Hives High 01/16/2023 Doxylamine Hives High 01/16/2023 Food (See Comments) Hives 06/20/2023 Arnshane's brand 7 Grain Bread Latex 06/18/2014 Bxzzrnxey-Xfovgffnnm-Dy-Ap ap Edema face/lips/tongue,It katie High 11/11/2010 Sulfa Antibiotics Other (Please comment),Rash 08/03/2000 malaise documented as of this encounter (statuses as of 11/13/2023) Medications Medication Sig Dispensed Refills Start Date End Date Status Omeprazole 20 MG Oral Capsule Delayed Release (PriLOSEC) Take 1 Capsule by mouth daily before breakfast. 30 Capsule 06/14/2023 Active Amitriptyline HCl 100 MG Oral Tablet (Elavil) Take 1 Tablet by mouth every night at bedtime. 30 Tablet 06/13/2023 Active hydrOXYzine HCl 50 MG Oral Tablet Take 1 Tablet by mouth every 8 hours as needed for Anxiety. 30 Tablet 06/13/2023 Active Insulin Aspart 100 UNIT/ML Subcutaneous Solution (NovoLOG) Glucose 80-150 (units): 0 Glucose 151-200 (units): 2 Glucose 201-250 (units): 4 Glucose 251-300 (units): 6 Glucose greater than 300 (units): 8 1 Each 06/13/2023 Active LiquaCel Oral Liquid Take 30 mL by mouth in the morning and 30 mL before bedtime. 1800 mL 06/13/2023 5 Active Insulin Glargine 100 UNIT/ML Subcutaneous Solution [...] to breakfast or other meds). 30 Tablet 06/13/2023 Active Simvastatin 40 MG Oral Tablet [...] 50 MCG/ACT Nasal Suspension (Flonase) Administer 1 [place] into nostril in the morning. Active Folic [...] as of this encounter (statuses as of 11/13/2023) Active Problems Problem Noted Date Diagnosed Date [...] as of this encounter (statuses as of 11/13/2023) Resolved Problems Problem Noted Date Diagnosed Date [...] as of this encounter (statuses as of 11/13/2023) Immunizations Name Administration Dates Next Due PPD [...] Sign Reading Time Taken Comments Blood Pressure 88/54 11/13/2023 11:00 AM EDT Pulse 77 11/13/2023 11:00 AM EDT Temperature 36.4 C (97.6 F) 11/13/2023 1 1:00 AM EDT Respiratory Rate - - Oxygen Saturation - - Inhaled Oxygen Concentration - - Weight 109.2 kg (240 lb 12.8 oz) 2023 11:00 AM EDT Height - - Body Mass Index 44.04 10/03/2023 8:22 PM EDT documented in this encounter Functional [...] Yes 10/03/2023 documented as of this encounter Progress Notes * Ricky Carnes MD - 11/13/2023 10:54 AM EDT INFECTIOUS DISEASE, [facility]: HPI: Ms. Smith is a 63-year-old woman with medical history of morbid obesity, type 2 diabetes, heart failure preserved ejection fraction, CKD, and hypertension who is presenting to our clinic after recent hospital admission for right heel osteomyelitis. She is known to our service for right heel osteomyelitis with bone biopsy in May 2023 growing MSSA. She was then completed a course of IV cefazolin on07/23/2023. However, she was admitted to [facility] because of the same issue andunderwent resection of the calcaneus with cultures growing Pseudomonas. She was then discharged on a long-term course of IV ertapenem which she already completed on 09/11/2023. [facility] early August [facility], she developed another right heel ulcer with MRIsuggesting osteomyelitis of the calcaneal tuberosity and sinus tract at the plantar aspect of the heel with high-grade tear of the plantar fascia and near-complete rupture of the Achilles tendon. At that time, no surgeries were performed and no cultures were obtained. We decided to send out on another 6 week course of IV Meropenem which she is supposed to complete today 11/13/2023. Review of patient's allergies indicates: Allergen Reactions Clarithromycin Other (Please comment) Heart racing Dextromethorphan Hives Doxylamine Hives Nljfogydr-Evuaudhkey-Oi-Apap Edema face/lips/tongue and Itching Amoxicillin Food (See Comments) Hives Arnshane's brand 7 Grain Bread Latex Sulfa Antibiotics Other (Please comment) and Rash malaise Current Outpatient Medications Medication Sig Dispense Refill Omeprazole 20 MG Oral Capsule Delayed Release (PriLOSEC) Take 1 Capsule by mouth daily before breakfast. 30 Capsule 3 Amitriptyline HCl 100 MG Oral Tablet (Elavil) Take 1 Tablet by mouth every night at bedtime. 30 Tablet 3 hydrOXYzine HCl 50 MG Oral Tablet Take 1 Tablet by mouth every 8 hours as needed for Anxiety. 30 Tablet 0 Insulin Aspart 100 UNIT/ML Subcutaneous Solution (NovoLOG) Glucose 80-150 (units): 0 Glucose 151-200 (units): 2 Glucose 201-250 (units): 4 Glucose 251-300 (units): 6 Glucose greater than 300 (units):8 1 Each 12 LiquaCel Oral Liquid Take 30 mL by mouth in the morning and 30 mL before bedtime. 1800 mL 11 Insulin Glargine 100 UNIT/ML Subcutaneous Solution (Lantus) Inject 10 Units under the skin at bedtime. 1 Each 12 Albuterol Sulfate HFA 108 (90 Base) MCG/ACT Inhalation Aerosol Solution Inhale 2 Puffs by mouth every 6 hours as needed for Dyspnea. 18 g 3 Levothyroxine Sodium 175 MCG Oral Tablet (Levoxyl) Take 1 Tablet by mouth in the morning. (at least30 min prior to breakfast or other meds). 30 Tablet 3 Simvastatin 40 MG Oral Tablet (Zocor) Take 1 Tablet by mouth in the morning. 30 Tablet 3 Acetaminophen 325 MG Oral Tablet (Tylenol) Take 2 Tablets by mouth every 6 hours as needed for Pain, Mild, Pain, Moderate or Pain, Severe. Cholecalciferol 10 MCG (400 UNIT) Oral Tablet (Vitamin D3) Take 50 Tablets by mouth in the morning. Ferrous Sulfate 325 (65 Fe) MG Oral Tablet (Feosol) Take 1 Tablet by mouth daily with breakfast. Fluticasone Propionate 50 MCG/ACT Nasal Suspension (Flonase) Administer 1 [place] into nostril in themorning. Folic Acid 1 MG Oral Tablet Take 1 Tablet by mouth in the morning. Loratadine 5 MG OR TABS Take 1 Tablet by mouth in the morning. metOLazone 2.5 MG Oral Tablet (Zaroxolyn) Take 1 Tablet by mouth in the morning. Magnesium Hydroxide 400 MG/5ML Oral Suspension (Milk of Magnesia) Take 30 mL by mouth daily as needed for Constipation. Ondansetron HCl 4 MG Oral Tablet (Zofran) Take 1 Tablet by mouth every 8 hours as needed for Nausea. CYANOCOBALAMIN 250 MCG OR TABS Take 1 Tablet by mouth in the morning. Diclofenac Sodium 1 % External Gel (Voltaren Arthritis Pain) Apply 1 % topically to affected area 4times a day as needed for Pain, Moderate or Pain, Severe. Apply to shoulder, affected area Melatonin 3 MG Oral Tablet Take 1 Tablet by mouth at bedtime. 10 Tablet 0 Gabapentin 100 MG Oral Capsule (Neurontin) Take 1 Capsule by mouth 3 times a day as needed (neuropathicpain). 30 Capsule 0 Sodium Hypochlorite 0.25 % External Solution Apply topically to affected area daily. 473 mL 0 Polyethylene Glycol 3350 17 GM Oral Packet (Miralax) Take 1 Packet by mouth daily as needed for Constipation. 14 Each 0 Sennosides-Docusate Sodium 8.6-50 MG Oral Tablet (Senokot-S) Take 1 Tablet by mouth 2 times a day as needed for Constipation. 10 Tablet 0 Bisacodyl 5 MG Oral Tablet Delayed Release (Dulcolax) Take 1 Tablet by mouth daily as needed for Constipation. 30 Tablet 0 Bisacodyl 10 MG Rectal Suppository (Dulcolax) Administer 1 Suppository into the rectum daily as needed for Constipation. 12 Suppository 0 Bumetanide 2 MG Oral Tablet Take 1 Tablet by mouth in the morning and 1 Tablet before bedtime. 60 Tablet 5 guaiFENesin 100 MG/5ML Oral Liquid (Robitussin) Take 10 mL by mouth every 4 hours as needed for Cough. 120 mL 0 meropenem IV IV (AMBULATORY) Administer 500 mg intravenously in the morning and 500 mg before bedtime. amLODIPine Besylate 2.5 MG Oral Tablet (Norvasc) Take 1 Tablet by mouth in the morning. 30 Tablet 1 Albuterol Sulfate (2.5 MG/3ML) 0.083% Inhalation Nebulization Solution (Proventil) Inhale 1 Vial via nebulizer every 4 hours as needed for Shortness of Breath. 360 mL 11 No current facility-administered medications for this visit. Patient Active Problem List Diagnosis Type 2 diabetes mellitus, with long-term current use of insulin ([facility]) Hypertension Hypothyroid Acute on chronic heart failure with preserved ejection fraction (HFpEF) ([facility]) Mitral valve insufficiency Mild tricuspid regurgitation Moderate pulmonary hypertension ([facility]) AV junctional rhythm Chronic kidney disease, stage IV (severe) ([facility]) Morbid obesity ([facility]) Mild mitral stenosis Moderate tricuspid regurgitation HCAP (healthcare-associated pneumonia) (HFpEF) heart failure with preserved ejection fraction ([facility]) Anxiety Diabetic ulcer of right heel ([facility]) Ambulatory dysfunction Fibromyalgia Gastroesophageal reflux disease Iron deficiency anemia Elevated troponin Demand ischemia ([facility]) Hyponatremia Hypoalbuminemia Bifascicular bundle branch block Acute osteomyelitis of calcaneum, right ([facility]) Anemia of chronic renal failure, stage 4 (severe) ([facility]) Review of Systems: Neg except for what was mentioned in H&P. LMP 11/22/2002 PHYSICAL EXAM: General: sitting in chair comfortably and in no acute respiratory or pain distress. HEENT: head atraumatic. No conjunctival injection, no nasal discharge and no abnormal oropharyngealfindings. Cardiac: Regular heart rate with no murmurs, gallops, or rubs. Both, S1 and S2 are heard. Respiratory: The chest wall is symmetric and without deformity. Good bilateral air entry with no wheezes or crackles. Genital/Rectal: No Pruett in place. Extremities/Skin: I could not examine the right heel because wound VAC is in place. However, I was able to examine some of the pictures taken by the patient during a recent Wound Care. The wound looks very clean with healthy edges and fleshy background suggesting good granulation tissue. However, Istill think that the size of the wound is still the same as before. Neurological: The patient is awake, alert and oriented with normal speech. Psychiatric: Appropriate mood and affect. Good judgement and insight. LABS: Labs reviewed as indicated below. ASSESSMENT: 1) Rt calcaneal osteomyelitis - has been there since May 2023 with cultures from biopsy at that point grew MSSA and was treated with 6 weeks of IV cefazolin. She was then admitted [facility] with the same issue in July 2023 and underwent partial calcanectomy with intraoperative cu ltures growing Pseudomonas. She was then sent out on IV meropenem for 6 weeks with persistent infection requiring an additional 6 weeks with anticipated end date of today 11/13/2023. 2) S/P partial calcanectomy by podiatry at [facility] on 08/19/2023 3) Type 2 diabetes with neuropathy PLAN: - she already completed 6 week course of IV meropenem twice (last day of the 2nd course will be today 11/13/2023). At this time, I would stop all antibiotics and remove the PICC line. - patient to continue aggressive Wound Care at the rehab where she stays. I also advised her to continue to follow up regularly with her movie critic for further management. Follow up: as needed Ricky Carnes MD Infectious Disease, [address] [address] documented in this encounter Nursing Notes * Marti Hudson LPN - 11/13/2023 11:00 AM EDT Chief Complaint Patient presents with Hospital Follow-Up documented in this encounter Plan of Treatment Upcoming Encounters Date Type Department Care Team (Late st Contact Info) Description 12/25/2023 10:00 AM EDT Office Visit NephrologyKaterin [address] [place] [address] Joslyn Barney MD [address] [place] [id number] Health Maintenance Due Date Last Done Comments [...] 10/04/2023, 05/11, 11/19/2018, Additional history exists GFR 05/09/2024 11/09/2023, 10/11, 11/02/2023, Additional history exists TSH 06/26/2024 06/27/2023, 04/0 07/2023, 06/02/2023, Additional history exists Nephrology Referral 09/16/2024 09/17/2023 PTH 09/30/2024 10/01/2023 Phosphate 11/01/2024 11/02/2023, 10/10, 10/19/2023, Additional history exists Hgb 11/08/2024 11/09/2023, 10/11, 11/02/2023, Additional history exists HPV (Gardasil) Vaccine [...] as of this encounter Visit Diagnoses Diagnosis Acute osteomyelitis of calcaneum, right (HCC)- Primary Type 2 diabetes mellitus with peripheral neuropathy (HCC) documented in this encounter Additional Health Concerns Infection Onset Date Last Indicated Resolved Time C. difficile 11/06/2023 11/06/2023 documented as of this encounter Advance Directives Documents on File Type Date Recorded Patient Optoelectronic Technician Expl anation POLST 10/10/2023 signed on 08/21 [place] ORDERS FOR LIFE-SUSTAINING TREATMENT POLST 08/16/2023 signed on 08/12 [place] ORDERS FOR LIFE-SUSTAINING TREATMENT POLST 06/17/2023 [place] OR DERS FOR LIFE-SUSTAINING TREATMENT; sign on 06/14/23 * [...] Advance Directives occurred with: Patient Care Teams Winery Cellar Hand Relationship Specialty Start Date End Date Paco Cordero MD [address] [id number] PCP - General Family Medicine 09/10/23 documented as of this encounter
--- OUTSIDE RECORDS SUMMARY | 2023-12-08 02:48 | External Medical Summary ---
Author Name Unknown Address Unknown Organization K1F:[facility] - [address] [place] [address] [address] [place] [address] Laboratory Report Ordering Provider Test Date Status BRONWYN BERNARD 11/05/2023 15:45:00 Final Observation Date Value Abnormality Reference (Units ) Status Bacteria identified in Specimen by Culture 11/05/2023 15:45:00 No growth Final Test: Culture, Blood
Sp ecimen Source: Blood, Venous
Specimen Type: Blood
Specimen Date: 11/05/2023 1545
Result Date: 11/10/2023 170
Result Status: Final result
Resulting Lab: [facility]
[address] [place] [address]
[address] [place] [id number]

CULTURE

No growth

null Performing Location [facility] - [address] [place] [address] [address] [place] [address]
--- OUTSIDE RECORDS SUMMARY | 2023-12-08 02:48 | External Medical Summary ---
Author Name Unknown Address Unknown Organization K1F:[facility] - [address] [address] Laboratory Report Ordering Provider Test Date Status BRONWYN BERNARD 11/09/2023 04:10:00 Final Observation Date Value Abnormality Reference (Units ) Status CRP, low-sensitivity 11/09/2023 04:10:00 137 Above high normal <=5 (mg/L) Final Performing Location [facility] - [address] [place] [address]
--- OUTSIDE RECORDS SUMMARY | 2023-12-08 02:48 | External Medical Summary ---
Author Name Unknown Address Unknown Organization K1F:[facility] - [address] [place] [address] Laboratory Report Ordering Provider Test Date Status BRONWYN BERNARD 10/26/2023 04:08:00 Final Observation Date Value Abnormality Reference (Units ) Status BUN 10/26/2023 04:08:00 90 Above high normal 6-20 (mg/dL) Final Creatinine 10/26/2023 04:08:00 2.5 Above high normal 0.5-1.0 (mg/dL) Final Glomerular filtration rate/1.73 sq M.predicted [Volume Rate/Area] in Serum, Plasma or Blood by Creatinine-based formula (CKD-EPI) 10/26/2023 04:08:00 21 Below low normal >=60 (mL/min) Final eGFR is calculated based on the CKD-EPI 2020 equation. Sodium 10/26/2023 04:08:00 134 Below low normal 135 -146 (mmol/L) Final Potassium 10/26/2023 04:08:00 4.9 3.5-5.1 (m mol/L) Final Cl 10/26/2023 04:08:00 95 Below low normal 98- 107 (mmol/L) Final CO2 10/26/2023 04:08:00 26 22-32 (mmo l/L) Final Anion gap 10/26/2023 04:08:00 13 7-15 (mmol /L) Final Glucose 10/26/2023 04:08:00 127 Above high normal 70 -120 (mg/dL) Final Albumin 10/26/2023 04:08:00 2.4 Below low normal 3.8 -5.0 (g/dL) Final AST (Aspartate aminotransferase) 10/26/2023 04:08:00 18 10-35 (U/L) Fin al Alk Phos 10/26/2023 04:08:00 190 Above high normal 35 -130 (U/L) Final Bilirubin, Total 10/26/2023 04:08:00 0.3 <=1 .2 (mg/dL) Final Calcium 10/26/2023 04:08:00 8.4 8.4-10.2 ( mg/dL) Final Protein 10/26/2023 04:08:00 5.8 Below low normal 6.0 -8.3 (g/dL) Final ALT (Alanine aminotransferase) 10/26/2023 04:08:00 9 Below low normal 10-35 (U/L) Final Performing Location LABORATORY [facility] - [facility] [address] [place] [address]
--- OUTSIDE RECORDS SUMMARY | 2023-12-08 02:48 | External Medical Summary | Summary of Care ---
Author Name Unknown Organization [facility] Address [address] [place] [address] Phone [phone] Care Team Providers Care Sanding Machine Tender Automatic Name Role Phone Paco Cordero MD Primary Care Provider + [phone] Reason for Visit * Reason Comments Hospital Follow-Up Encounter Details Date Type Department Care Team (Latest Contact Info) Description 11/13/2023 11:00 AM EDT Office Visit Infectious Disease, [address] [address] Ricky Carnes MD [address] [place] [address] Acute osteomyelitis of calcaneum, right (HCC)*; Type 2 diabetes mellitus with peripheral neuropathy (HCC) Allergies Active Allergy Reactions Criticality Noted Date Comments Amoxicillin 06/26/2014 Clarithromycin Other (Please comment) High 01/16/2023 Heart racing Dextromethorphan Hives High 01/16/2023 Doxylamine Hives High 01/16/2023 Food (See Comments) Hives 06/20/2023 Arnshane's brand 7 Grain Bread Latex 06/18/2014 Rejrxjpjx-Rwkdljcsne-Xm-Ap ap Edema face/lips/tongue,It katie High 11/11/2010 Sulfa [...] 50 MCG/ACT Nasal Suspension (Flonase) Administer 1 [place] into nostril in the morning. Active Folic [...] - 11/13/2023 10:54 AM EDT INFECTIOUS DISEASE, [facility]: HPI: Ms. Smith is a 63-year-old woman [...] cefazolin on07/23/2023. However, she was admitted to [facility] because of the same issue andunderwent resection of the calcaneus with cultures growing Pseudomonas. She was then discharged on a long-term course of IV ertapenem which she already completed on 09/11/2023. [facility] August [facility]23, she developed [...] comment) Heart racing Dextromethorphan Hives Doxylamine Hives Cigjublgz-Kisogratql-Yd-Apap Edema face/lips/tongue and Itching Amoxicillin Food (See [...] 50 MCG/ACT Nasal Suspension (Flonase) Administer 1 [place] into nostril in themorning. Folic Acid 1 [...] mellitus, with long-term current use of insulin ([facility]) Hypertension Hypothyroid Acute on chronic heart failure with preserved ejection fraction (HFpEF) ([facility]) Mitral valve insufficiency Mild tricuspid regurgitation Moderate pulmonary hypertension ([facility]) AV junctional rhythm Chronic kidney disease, stage IV (severe) ([facility]) Morbid obesity ([facility]) Mild mitral stenosis Moderate tricuspid regurgitation HCAP (healthcare-associated pneumonia) (HFpEF) heart failure with preserved ejection fraction ([facility]) Anxiety Diabetic ulcer of right heel ([facility]) Ambulatory dysfunction Fibromyalgia Gastroesophageal reflux disease Iron deficiency anemia Elevated troponin Demand ischemia ([facility]) Hyponatremia Hypoalbuminemia Bifascicular bundle branch block Acute osteomyelitis of calcaneum, right ([facility]) Anemia of chronic renal failure, stage 4 (severe) ([facility]) Review of Systems: Neg except for what [...] of IV cefazolin. She was then admitted [facility] with the same issue in July 2023 and underwent partial calcanectomy with intraoperative cu ltures growing Pseudomonas. She was then sent out on IV meropenem for 6 weeks with persistent infection requiring an additional 6 weeks with anticipated end date of today 11/13/2023. 2) S/P partial calcanectomy by podiatry at [facility] on 08/19/2023 3) Type 2 diabetes [...] continue to follow up regularly with her ballistics tester for further management. Follow up: as needed Ricky Carnes MD Infectious Disease, [address] [address] documented in this encounter Nursing Notes * Marti Hudson LPN - 11/13/2023 11:00 AM EDT Chief Complaint Patient presents with Hospital Follow-Up documented in this encounter Plan of Treatment Upcoming Encounters Date Type Department Care Team (Late st Contact Info) Description 12/25/2023 10:00 AM EDT Office Visit NephrologyKaterin [address] [place] [address] Joslyn Barney MD [address] [place] [address] [address] Health Maintenance Due Date Last Done Comments [...] Documents on File Type Date Recorded Patient High School Admissions Representative Expl anation POLST 10/10/2023 signed on 08/21 [place] ORDERS FOR LIFE-SUSTAINING TREATMENT POLST 08/16/2023 signed on 08/12 [place] ORDERS FOR LIFE-SUSTAINING TREATMENT POLST 06/17/2023 [place] OR DERS FOR LIFE-SUSTAINING TREATMENT; sign on [...] Advance Directives occurred with: Patient Care Teams Sanding Machine Tender Automatic Relationship Specialty Start Date End Date Paco Cordero MD [address] [id number] PCP - General Family Medicine 09/10/23 documented as of this encounter
--- OUTSIDE RECORDS SUMMARY | 2023-12-08 02:48 | External Medical Summary ---
Author Name Unknown Address Unknown Organization K1F:[facility] - [address] [address] Laboratory Report Ordering Provider Test Date Status BRONWYN BERNARD 11/09/2023 04:10:00 Final Observation Date Value Abnormality Reference (Units ) Status WBC, Total 11/09/2023 04:10:00 12.10 Above high normal 4.00-10.80 (K/uL) Final RBC 11/09/2023 04:10:00 2.40 3.85-5.15 (M/uL) Final Hemoglobin 11/09/2023 04:10:00 6.9 Below low normal 12.0-15.3 (g/dL) Final HCT 11/09/2023 04:10:00 20.7 Below low normal 36.0-45.2 (%) Final MCV 11/09/2023 04:10:00 86.3 81.5-97.5 (fL) Final MCH 11/09/2023 04:10:00 28.8 27.0-34.0 (pg) Final MCHC 11/09/2023 04:10:00 33.3 32.0-36.0 (g/dL) Final RDW 11/09/2023 04:10:00 14.6 11.5-15.5 (%) Final Platelets 11/09/2023 04:10:00 405 Above high normal 140-400 (K/uL) Final MPV 11/09/2023 04:10:00 10.9 6.6-11.1 (fL) Final Nucleated erythrocytes/100 leukocytes [Ratio] in Blood by Automated count 11/09/2023 04:10:00 0 <=0 (/100 WBCs) Final Performing Location [facility]ORY [facility] - [address] [place] [address]
--- OUTSIDE RECORDS SUMMARY | 2023-12-08 02:48 | External Medical Summary ---
Author Name Unknown Address Unknown Organization K1F:[facility] - [address] [place] [address] Laboratory Report Ordering Provider Test Date Status [...] high normal 70 -120 (mg/dL) Final Calcium 10/26/2023 04:08:00 8.4 8.4-10.2 ( mg/dL) Final Albumin 10/26/2023 04:08:00 2.4 Below low normal 3.8 -5.0 (g/dL) Final Phosphate 10/26/2023 04:08:00 5.8 Above high normal 2. 5-4.8 (mg/dL) Final Performing Location [facility] - [address] [place] [address]
--- OUTSIDE RECORDS SUMMARY | 2023-12-08 02:48 | External Medical Summary ---
Author Name Unknown Address Unknown Organization K1F:[facility] - [address] [address] Laboratory Report Ordering Provider Test Date Status [...] calculated based on the CKD-EPI 2020 equation.
eGFR is calculated based on the CKD-EPI [...] 10/26/2023 04:08:00 8.4 8.4-10.2 ( mg/dL) Final Performing Location [facility] - [address] [address]
--- OUTSIDE RECORDS SUMMARY | 2023-12-08 02:48 | External Medical Summary ---
Author Name Unknown Address Unknown Organization K1F:LABORATORY [facility] - [address] [address] Laboratory Report Ordering Provider Test Date Status SCOTTYLEONIDAS 11/16/2023 12:36:22 Final Anticoagulation may affect t esting. Refer to [facility] Test Catalog for a list of effects. Observation Date Value Abnormality Reference (Units ) Status aPTT panel - Platelet poor plasma 11/16/2023 12:36:22 38 21-38 (seconds) Final Performing Location LABORATORY [facility] - [address] [address]
--- OUTSIDE RECORDS SUMMARY | 2023-12-08 02:48 | External Medical Summary ---
Author Name Unknown Address Unknown Organization K1F:LABORATORY [facility] - [address] [place] [address] Laboratory Report Ordering Provider Test Date Status BRONWYN BERNARD 10/19/2023 04:22:00 Final Observation Date Value Abnormality Reference (Units ) Status BUN 10/19/2023 04:22:00 92 Above high normal 6-20 (mg/dL) Final Creatinine 10/19/2023 04:22:00 2.5 Above high normal 0.5-1.0 (mg/dL) Final Glomerular filtration rate/1.73 sq M.predicted [Volume Rate/Area] in Serum, Plasma or Blood by Creatinine-based formula (CKD-EPI) 10/19/2023 04:22:00 21 Below low normal >=60 (mL/min) Final eGFR is calculated based on the CKD-EPI 2020 equation. Sodium 10/19/2023 04:22:00 136 135-146 (m mol/L) Final Potassium 10/19/2023 04:22:00 5.2 Above high normal 3. 5-5.1 (mmol/L) Final Cl 10/19/2023 04:22:00 98 98-107 (mm ol/L) Final CO2 10/19/2023 04:22:00 27 22-32 (mmo l/L) Final Anion gap 10/19/2023 04:22:00 11 7-15 (mmol /L) Final Glucose 10/19/2023 04:22:00 83 70-120 (mg /dL) Final Calcium 10/19/2023 04:22:00 8.2 Below low normal 8.4 -10.2 (mg/dL) Final Albumin 10/19/2023 04:22:00 2.3 Below low normal 3.8 -5.0 (g/dL) Final Phosphate 10/19/2023 04:22:00 5.5 Above high normal 2. 5-4.8 (mg/dL) Final Performing Location LABORATORY [facility] - [address] [place] [address]
--- OUTSIDE RECORDS SUMMARY | 2023-12-08 02:48 | External Medical Summary ---
Author Name Unknown Address Unknown Organization K1F:LABORATORY [facility] - [address] [place] [place] [address] Laboratory Report Ordering Provider Test Date Status BRONWYN BERNARD 11/16/2023 04:53:00 Final Observation Date Value Abnormality Reference (Units ) Status BUN 11/16/2023 04:53:00 146 Above high normal 6-20 (mg/dL) Final Creatinine 11/16/2023 04:53:00 3.7 Above high normal 0.5-1.0 (mg/dL) Final Glomerular filtration rate/1.73 sq M.predicted [Volume Rate/Area] in Serum, Plasma or Blood by Creatinine-based formula (CKD-EPI) 11/16/2023 04:53:00 13 Below low normal >=60 (mL/min) Final eGFR is calculated based on the CKD-EPI 2020 equation. Sodium 11/16/2023 04:53:00 132 Below low normal 135 -146 (mmol/L) Final Potassium 11/16/2023 04:53:00 5.5 Above high normal 3. 5-5.1 (mmol/L) Final Cl 11/16/2023 04:53:00 91 Below low normal 98- 107 (mmol/L) Final CO2 11/16/2023 04:53:00 25 22-32 (mmo l/L) Final Anion gap 11/16/2023 04:53:00 16 Above high normal 7- 15 (mmol/L) Final Glucose 11/16/2023 04:53:00 128 Above high normal 70 -120 (mg/dL) Final Albumin 11/16/2023 04:53:00 2.2 Below low normal 3.8 -5.0 (g/dL) Final AST (Aspartate aminotransferase) 11/16/2023 04:53:00 24 10-35 (U/L) Fin al Alk Phos 11/16/2023 04:53:00 244 Above high normal 35 -130 (U/L) Final Bilirubin, Total 11/16/2023 04:53:00 0.2 <=1 .2 (mg/dL) Final Calcium 11/16/2023 04:53:00 7.6 Below low normal 8.4 -10.2 (mg/dL) Final Protein 11/16/2023 04:53:00 5.4 Below low normal 6.0 -8.3 (g/dL) Final ALT (Alanine aminotransferase) 11/16/2023 04:53:00 13 10-35 (U/L) Dante paris Performing Location LABORATORY [facility] - [address] [place] [address] [address] [place] [address]
--- OUTSIDE RECORDS SUMMARY | 2023-12-08 02:48 | External Medical Summary ---
Author Name Unknown Address Unknown Organization K1F:LABORATORY [facility] - [address] [place] [address] Laboratory Report Ordering Provider Test Date Status BRONWYN BERNARD 10/19/2023 04:22:00 Final Observation Date Value Abnormality Reference (Units ) Status SYNC LEUKOCYTES IN BLOOD BY AUTOMATED COUNT 10/19/2023 04:22:00 9.07 4.00-10.80 (K/uL) Final Segs 10/19/2023 04:22:00 62.7 40.0-75.0 (%) Final Lymphs % 10/19/2023 04:22:00 21.6 18.0-42.0 (%) Final Monos 10/19/2023 04:22:00 10.6 1.0-11.0 (%) Final Eosinophils 10/19/2023 04:22:00 3.6 0.0-6.0 (%) Final Basos 10/19/2023 04:22:00 0.7 0.0-2.0 (%) Final Immature Granulocyte, Percent 10/19/2023 04:22:00 0.8 0.0-2.0 (%) Final Absolute Segs 10/19/2023 04:22:00 5.69 1.80-7.70 (K/uL) Final Lymphs, absolute 10/19/2023 04:22:00 1.96 1.00-4.80 (K/ul) Final Monos, Abs 10/19/2023 04:22:00 0.96 0.00-1.10 (K/uL) Final Eos, Abs 10/19/2023 04:22:00 0.33 0.00-0.70 (K/uL) Final Basos, Abs 10/19/2023 04:22:00 0.06 0.00-0.20 (K/uL) Final Immature Granulocytes, Number 10/19/2023 04:22:00 0.07 0.00-0.20 (K/uL) Final Performing Location LABORATORY [facility] - [facility] [address] [place] [address]
--- OUTSIDE RECORDS SUMMARY | 2023-12-08 02:48 | External Medical Summary ---
Author Name Unknown Address Unknown Organization K1F:LABORATORY [facility] - [address] [place] [address] Laboratory Report Ordering Provider Test Date Status BRONWYN BERNARD 11/02/2023 04:20:00 Final Observation Date Value Abnormality Reference (Units ) Status BUN 11/02/2023 04:20:00 104 Above high normal 6-20 (mg/dL) Final Creatinine 11/02/2023 04:20:00 3.2 Above high normal 0.5-1.0 (mg/dL) Final Glomerular filtration rate/1.73 sq M.predicted [Volume Rate/Area] in Serum, Plasma or Blood by Creatinine-based formula (CKD-EPI) 11/02/2023 04:20:00 16 Below low normal >=60 (mL/min) Final eGFR is calculated based on the CKD-EPI 2020 equation. Sodium 11/02/2023 04:20:00 131 Below low normal 135 -146 (mmol/L) Final Potassium 11/02/2023 04:20:00 5.9 Above high normal 3. 5-5.1 (mmol/L) Final Cl 11/02/2023 04:20:00 92 Below low normal 98- 107 (mmol/L) Final CO2 11/02/2023 04:20:00 28 22-32 (mmo l/L) Final Anion gap 11/02/2023 04:20:00 11 7-15 (mmol /L) Final Glucose 11/02/2023 04:20:00 126 Above high normal 70 -120 (mg/dL) Final Albumin 11/02/2023 04:20:00 2.3 Below low normal 3.8 -5.0 (g/dL) Final AST (Aspartate aminotransferase) 11/02/2023 04:20:00 20 10-35 (U/L) Fin al Alk Phos 11/02/2023 04:20:00 171 Above high normal 35 -130 (U/L) Final Bilirubin, Total 11/02/2023 04:20:00 <0.2 <=1 .2 (mg/dL) Final Calcium 11/02/2023 04:20:00 8.2 Below low normal 8.4 -10.2 (mg/dL) Final Protein 11/02/2023 04:20:00 5.6 Below low normal 6.0 -8.3 (g/dL) Final ALT (Alanine aminotransferase) 11/02/2023 04:20:00 11 10-35 (U/L) Dante paris Performing Location LABORATORY [facility] - [address] [place] [address] [address] [address]
--- OUTSIDE RECORDS SUMMARY | 2023-12-08 02:48 | External Medical Summary ---
Author Name Unknown Address Unknown Organization K1F:LABORATORY [facility] - [address] [place] [place] [address] Laboratory Report Ordering Provider Test Date Status BRONWYN BERNARD 11/05/2023 04:30:00 Final Observation Date Value Abnormality Reference (Units ) Status BUN 11/05/2023 04:30:00 126 Above high normal 6-20 (mg/dL) Final Creatinine 11/05/2023 04:30:00 3.1 Above high normal 0.5-1.0 (mg/dL) Final Glomerular filtration rate/1.73 sq M.predicted [Volume Rate/Area] in Serum, Plasma or Blood by Creatinine-based formula (CKD-EPI) 11/05/2023 04:30:00 16 Below low normal >=60 (mL/min) Final eGFR is calculated based on the CKD-EPI 2020 equation. Sodium 11/05/2023 04:30:00 134 Below low normal 135 -146 (mmol/L) Final Potassium 11/05/2023 04:30:00 4.6 3.5-5.1 (m mol/L) Final Cl 11/05/2023 04:30:00 91 Below low normal 98- 107 (mmol/L) Final CO2 11/05/2023 04:30:00 25 22-32 (mmo l/L) Final Anion gap 11/05/2023 04:30:00 18 Above high normal 7- 15 (mmol/L) Final Glucose 11/05/2023 04:30:00 168 Above high normal 70 -120 (mg/dL) Final Albumin 11/05/2023 04:30:00 2.6 Below low normal 3.8 -5.0 (g/dL) Final AST (Aspartate aminotransferase) 11/05/2023 04:30:00 33 10-35 (U/L) Fin al Alk Phos 11/05/2023 04:30:00 225 Above high normal 35 -130 (U/L) Final Bilirubin, Total 11/05/2023 04:30:00 0.2 <=1 .2 (mg/dL) Final Calcium 11/05/2023 04:30:00 8.4 8.4-10.2 ( mg/dL) Final Protein 11/05/2023 04:30:00 6.3 6.0-8.3 (g /dL) Final ALT (Alanine aminotransferase) 11/05/2023 04:30:00 13 10-35 (U/L) Dante paris [facility] Location LABORATORY [facility] - [address] [place] [address] [place] [address]
--- OUTSIDE RECORDS SUMMARY | 2023-12-08 02:48 | External Medical Summary ---
Author Name Unknown Address Unknown Organization K1F:LABORATORY [facility] - [address] [place] [place] [address] Laboratory Report Ordering Provider Test Date Status [...] high normal 70 -120 (mg/dL) Final Calcium 11/02/2023 04:20:00 8.2 Below low normal 8.4 -10.2 (mg/dL) Final Albumin 11/02/2023 04:20:00 2.3 Below low normal 3.8 -5.0 (g/dL) Final Phosphate 11/02/2023 04:20:00 7.2 Above high normal 2. 5-4.8 (mg/dL) Final Performing Location LABORATORY [facility] - [address] [facility] [address]
--- OUTSIDE RECORDS SUMMARY | 2023-12-08 02:49 | External Medical Summary ---
Author Name Unknown Address Unknown Organization K1F:LABORATORY [facility] - [address] [place] [address] Laboratory Report Ordering Provider Test Date Status [...] 10/19/2023 04:22:00 83 70-120 (mg /dL) Final Albumin 10/19/2023 04:22:00 2.3 Below low normal 3.8 -5.0 (g/dL) Final AST (Aspartate aminotransferase) 10/19/2023 04:22:00 19 10-35 (U/L) Fin al Alk Phos 10/19/2023 04:22:00 188 Above high normal 35 -130 (U/L) Final Bilirubin, Total 10/19/2023 04:22:00 <0.2 <=1 .2 (mg/dL) Final Calcium 10/19/2023 04:22:00 8.2 Below low normal 8.4 -10.2 (mg/dL) Final Protein 10/19/2023 04:22:00 5.5 Below low normal 6.0 -8.3 (g/dL) Final ALT (Alanine aminotransferase) 10/19/2023 04:22:00 10 10-35 (U/L) Dante paris [facility] Location LABORATORY [facility] - [address] [place], [place] [address] [place] [address]
--- OUTSIDE RECORDS SUMMARY | 2023-12-08 02:49 | External Medical Summary ---
Author Name Unknown Address Unknown Organization K1F:LABORATORY [facility] - [address] [address] Laboratory Report Ordering Provider Test Date Status BRONWYN BERNARD 10/19/2023 04:22:00 Final Observation Date Value Abnormality Reference (Units ) Status WBC, Total 10/19/2023 04:22:00 9.07 4.00-10.80 (K/uL) Final RBC 10/19/2023 04:22:00 2.67 3.85-5.15 (M/uL) Final Hemoglobin 10/19/2023 04:22:00 7.5 Below low normal 12.0-15.3 (g/dL) Final HCT 10/19/2023 04:22:00 23.7 Below low normal 36.0-45.2 (%) Final MCV 10/19/2023 04:22:00 88.8 81.5-97.5 (fL) Final MCH 10/19/2023 04:22:00 28.1 27.0-34.0 (pg) Final MCHC 10/19/2023 04:22:00 31.6 32.0-36.0 (g/dL) Final RDW 10/19/2023 04:22:00 15.5 11.5-15.5 (%) Final Platelets 10/19/2023 04:22:00 376 140-400 (K/uL) Final MPV 10/19/2023 04:22:00 10.7 6.6-11.1 (fL) Final Nucleated erythrocytes/100 leukocytes [Ratio] in Blood by Automated count 10/19/2023 04:22:00 0 <=0 (/100 WBCs) Final Performing Location LABORATORY [facility] - [address] [place] [address]
--- OUTSIDE RECORDS SUMMARY | 2023-12-08 02:49 | External Medical Summary ---
Author Name Unknown Address Unknown Organization K1F:LABORATORY [facility] - [address] [place] [place] [address] Laboratory Report Ordering Provider Test Date Status BRONWYN BERNARD 10/10/2023 04:40:00 Final Observation Date Value Abnormality Reference (Units ) Status BUN 10/10/2023 04:40:00 95 Above high normal 6-20 (mg/dL) Final Creatinine 10/10/2023 04:40:00 2.4 Above high normal 0.5-1.0 (mg/dL) Final Glomerular filtration rate/1.73 sq M.predicted [Volume Rate/Area] in Serum, Plasma or Blood by Creatinine-based formula (CKD-EPI) 10/10/2023 04:40:00 22 Below low normal >=60 (mL/min) Final eGFR is calculated based on the CKD-EPI 2020 equation. Sodium 10/10/2023 04:40:00 136 135-146 (m mol/L) Final Potassium 10/10/2023 04:40:00 4.3 3.5-5.1 (m mol/L) Final Cl 10/10/2023 04:40:00 97 Below low normal 98- 107 (mmol/L) Final CO2 10/10/2023 04:40:00 24 22-32 (mmo l/L) Final Anion gap 10/10/2023 04:40:00 15 7-15 (mmol /L) Final Glucose 10/10/2023 04:40:00 107 70-120 (mg /dL) Final Albumin 10/10/2023 04:40:00 2.5 Below low normal 3.8 -5.0 (g/dL) Final AST (Aspartate aminotransferase) 10/10/2023 04:40:00 15 10-35 (U/L) Fin al Alk Phos 10/10/2023 04:40:00 233 Above high normal 35 -130 (U/L) Final Bilirubin, Total 10/10/2023 04:40:00 <0.2 <=1 .2 (mg/dL) Final Calcium 10/10/2023 04:40:00 8.5 8.4-10.2 ( mg/dL) Final Protein 10/10/2023 04:40:00 5.5 Below low normal 6.0 -8.3 (g/dL) Final ALT (Alanine aminotransferase) 10/10/2023 04:40:00 7 Below low normal 10-35 (U/L) Final Performing Location LABORATORY [facility] - [address] [place], [place] [address] [place] [address]
--- OUTSIDE RECORDS SUMMARY | 2023-12-08 02:49 | External Medical Summary ---
Author Name Unknown Address Unknown Organization K1F:LABORATORY [facility] - [address] [place] [address] Laboratory Report Ordering Provider Test Date Status BRONWYN BERNARD 10/12/2023 04:06:00 Final Observation Date Value Abnormality Reference (Units ) Status BUN 10/12/2023 04:06:00 88 Above high normal 6-20 (mg/dL) Final Creatinine 10/12/2023 04:06:00 2.4 Above high normal 0.5-1.0 (mg/dL) Final Glomerular filtration rate/1.73 sq M.predicted [Volume Rate/Area] in Serum, Plasma or Blood by Creatinine-based formula (CKD-EPI) 10/12/2023 04:06:00 23 Below low normal >=60 (mL/min) Final eGFR is calculated based on the CKD-EPI 2020 equation. Sodium 10/12/2023 04:06:00 136 135-146 (m mol/L) Final Potassium 10/12/2023 04:06:00 4.6 3.5-5.1 (m mol/L) Final Cl 10/12/2023 04:06:00 98 98-107 (mm ol/L) Final CO2 10/12/2023 04:06:00 25 22-32 (mmo l/L) Final Anion gap 10/12/2023 04:06:00 13 7-15 (mmol /L) Final Glucose 10/12/2023 04:06:00 132 Above high normal 70 -120 (mg/dL) Final Albumin 10/12/2023 04:06:00 2.4 Below low normal 3.8 -5.0 (g/dL) Final AST (Aspartate aminotransferase) 10/12/2023 04:06:00 15 10-35 (U/L) Fin al Alk Phos 10/12/2023 04:06:00 209 Above high normal 35 -130 (U/L) Final Bilirubin, Total 10/12/2023 04:06:00 <0.2 <=1 .2 (mg/dL) Final Calcium 10/12/2023 04:06:00 8.8 8.4-10.2 ( mg/dL) Final Protein 10/12/2023 04:06:00 5.5 Below low normal 6.0 -8.3 (g/dL) Final ALT (Alanine aminotransferase) 10/12/2023 04:06:00 7 Below low normal 10-35 (U/L) Final Performing Location LABORATORY [facility] - [facility] [place] [address]
--- OUTSIDE RECORDS SUMMARY | 2023-12-08 02:49 | External Medical Summary ---
Author Name Unknown Address Unknown Organization K1F:LABORATORY [facility] - [address] [place] [address] Laboratory Report Ordering Provider Test Date Status [...] 10/10/2023 04:40:00 107 70-120 (mg /dL) Final Calcium 10/10/2023 04:40:00 8.5 8.4-10.2 ( mg/dL) Final Albumin 10/10/2023 04:40:00 2.5 Below low normal 3.8 -5.0 (g/dL) Final Phosphate 10/10/2023 04:40:00 5.5 Above high normal 2. 5-4.8 (mg/dL) Final Performing Location LABORATORY [facility] - [address] [place] [address]
--- OUTSIDE RECORDS SUMMARY | 2023-12-08 02:49 | External Medical Summary ---
Author Name Unknown Address Unknown Organization K1F:LABORATORY [facility] - [address] [address] Laboratory Report Ordering Provider Test Date Status BRONWYN BERNARD 10/10/2023 04:40:00 Final Observation Date Value Abnormality Reference (Units ) Status SYNC LEUKOCYTES IN BLOOD BY AUTOMATED COUNT 10/10/2023 04:40:00 15.49 Above high normal 4.00-10.80 (K/uL) Final Neutrophils/100 leukocytes in Blood by Manual count 10/10/2023 04:40:00 75.0 40.0-75.0 (%) Final Lymphocytes/100 leukocytes in Blood by Manual count 10/10/2023 04:40:00 15.0 Below low normal 18.0-42.0 (%) Final Monocytes/100 leukocytes in Blood by Manual count 10/10/2023 04:40:00 4.0 1.0-11.0 (%) Final Eosinophils/100 leukocytes in Blood by Manual count 10/10/2023 04:40:00 4.0 0.0-6.0 (%) Final Basophils/100 leukocytes in Blood by Manual count 10/10/2023 04:40:00 2.0 0.0-2.0 (%) Final Neutrophils [#/volume] in Blood by Manual count 10/10/2023 04:40:00 11.62 Above high normal 1.80-7.70 (K/uL) Final Lymphocytes [#/volume] in Blood by Manual count 10/10/2023 04:40:00 2.32 1.00-4.80 (K/uL) Final Monocytes [#/volume] in Blood by Manual count 10/10/2023 04:40:00 0.62 0.00-1.10 (K/uL) Final Eosinophils [#/volume] in Blood by Manual count 10/10/2023 04:40:00 0.62 0.00-0.70 (K/uL) Final Basophils [#/volume] in Blood by Manual count 10/10/2023 04:40:00 0.31 Above high normal 0.00-0.20 (K/uL) Final Performing Location LABORATORY [facility] - [facility] [address] [place] [place] [address]
--- OUTSIDE RECORDS SUMMARY | 2023-12-08 02:49 | External Medical Summary | Summary of Care ---
Author Name Unknown Organization [facility] Address [address] [place] [address] Phone [phone] Care Team Providers [facility] Name Role Phone Paco Cordero MD Primary Care Provider + [phone] Reason for Visit * Reason Comments Short of Breath * Auth/Cert Specialty Diagnoses / Procedures Referred By Contkatharine t Referred To Contact [facility] [address] [place] [address] Phone: [phone] Emergency Medicine [address] [address] Referral ID Status Reason Start Date Expiration Date Visits Re quested Visits Authorized [id number] Encounter Details Date Type Department Care Team (Latest Contact Info) Description 10/03/2023 3:44 PM EDT - 10/09/2023 9:58 AM EDT Hospital Encounter 5A [facility] 5th Floor [address] [place] [address] Deng Padilla [address] [place] [id number] Kali Mooney MD [address] [facility] [place], [place] [id number] Dante Contreras DO [address] [place] [address] Ayana Summers MD [address] [facility] [place] [id number] Pt Handout (on AVS) Discharge Disposition: IP Rehab Allergies Active Allergy Reactions Criticality Noted Date Comments Amoxicillin 06/26/2014 Clarithromycin Other (Please comment) High 01/16/2023 Heart racing Dextromethorphan Hives High 01/16/2023 Doxylamine Hives High 01/16/2023 Food (See Comments) Hives 06/20/2023 [employer] brand 7 Grain Bread Latex 06/18/2014 Cindydjqd-Urcsemksae-Hf-Ap ap Edema face/lips/tongue,It katie High 11/11/2010 Sulfa Antibiotics Other (Please comment),Rash 08/03/2000 malaise documented as of this encounter (statuses as of 10/09/2023) Medications Medication Sig Dispensed Refills Start Date End Date Status Omeprazole 20 MG Oral Capsule Delayed Release (PriLOSEC) Take 1 Capsule by mouth daily before breakfast. 30 Capsule 3 4 Active Amitriptyline HCl 100 MG Oral Tablet (Elavil) Take 1 Tablet by mouth every night at bedtime. 30 Tablet 3 4 Active hydrOXYzine HCl 50 MG Oral Tablet Take 1 Tablet by mouth every 8 hours as needed for Anxiety. 30 Tablet 4 Active Insulin Aspart 100 UNIT/ML Subcutaneous Solution (NovoLOG) Glucose 80-150 (units): 0 Glucose 151-200 (units): 2 Glucose 201-250 (units): 4 Glucose 251-300 (units): 6 Glucose greater than 300 (units): 8 1 Each 12 4 Active LiquaCel Oral Liquid Take 30 mL by mouth in the morning and 30 mL before bedtime. 1800 mL 11 4 025 Active Insulin Glargine 100 UNIT/ML Subcutaneous [...] the morning. 30 Tablet 3 4 Active Acetaminophen 325 MG Oral Tablet (Tylenol) [...] 50 MCG/ACT Nasal Suspension (Flonase) Administer 1 [place] into nostril in the morning. Active Folic [...] by mouth at bedtime. 10 Tablet 4 Active Gabapentin 100 MG Oral Capsule (Neurontin) Take 1 Capsule by mouth 3 times a day as needed (neuropathicpain) . 30 Capsule 4 Active Sodium Hypochlorite 0.25 % External Solution Apply topically to affected area daily. 473 mL 4 Active Polyethylene Glycol 3350 17 GM Oral Packet (Miralax) Take 1 Packet by mouth daily as needed for Constipation. 14 Each 4 Active Sennosides-Docus ate Sodium 8.6-50 MG Oral Tablet (Senokot-S) Take 1 Tablet by mouth 2 times a day as needed for Constipation. 10 Tablet 4 Active Bisacodyl 5 MG Oral Tablet Delayed Release (Dulcolax) Take 1 Tablet by mouth daily as needed for Constipation. 30 Tablet 4 Active Bisacodyl 10 MG Rectal Suppository (Dulcolax) Administer 1 Suppository into the rectum daily as needed for Constipation. 12 Suppository 4 Active Bumetanide 2 MG Oral Tablet Take 1 Tablet by mouth in the morning and 1 Tablet before bedtime. 60 Tablet 5 4 Active guaiFENesin 100 MG/5ML Oral Liquid (Robitussin) Take 10 mL by mouth every 4 hours as needed for Cough. 120 mL 4 Active meropenem IV IV (AMBULATORY) Administer 500 mg intravenously in the morning and 500 mg before bedtime. 4 Active amLODIPine Besylate 2.5 MG Oral Tablet (Norvasc) Take 1 Tablet by mouth in the morning. 30 Tablet 1 4 Active Albuterol Sulfate (2.5 MG/3ML) 0.083% Inhalation Nebulization Solution (Proventil) Inhale 1 Vial via nebulizer every 4 hours as needed for Shortness of Breath. 360 mL 11 4 Active amLODIPine Besylate 10 MG Oral Tablet (Norvasc) Take 1 Tablet by mouth in the morning. Discontinued Lisinopril 40 MG Oral Tablet Take 1 Tablet by mouth in the morning. 30 Tablet 3 4 024 Discontinued Potassium Chloride ER 10 MEQ Oral Tablet Extended Release Take 2 Tablets by mouth in the morning. 60 Tablet 3 4 Discontinued meropenem 1 G in 50 ml 1 G/50ml IV Administer 50 mL intravenously in the morning and 50 mL at noon and 50 mL before bedtime. 4 024 Discontinued documented as of this encounter (statuses as of 10/09/2023) Active Problems Problem Noted Date Diagnosed Date [...] as of this encounter (statuses as of 10/09/2023) Resolved Problems Problem Noted Date Diagnosed Date [...] 06/18/2023 10/04/2023 Atypical chest pain 06/17/2023 10/04/19 24 BPPV (benign paroxysmal positional vertigo) 06/17/2023 06/18/2023 Hypokalemia 06/17/2023 06/19/2023 Hypomagnesemia 06/17/2023 06/25/2023 documented as of this encounter (statuses as of 10/09/2023) Immunizations Name Administration Dates Next Due PPD [...] Sign Reading Time Taken Comments Blood Pressure 125/53 10/09/2023 7:40 AM EDT Pulse 61 10/09/2023 7:44 AM EDT Temperature 36.2 C (97.2 F) 10/09/2023 7:40 AM ED T Respiratory Rate 16 10/09/2023 4:06 AM EDT Oxygen Saturation 98% 10/09/2023 7:44 AM EDT Inhaled Oxygen Concentration - - Weight 125.8 kg (277 lb 5.4 oz) 10/09/2023 4:06 AM EDT Height 157.5 cm (5' 2") 10/03/2023 8:22 PM EDT Body Mass Index 50.73 10/03/2023 8:22 PM EDT documented in this [...] Yes 10/03/2023 documented as of this encounter Discharge Summaries * Ayana Summers MD - 10/09/2023 7:51 AM EDT Images from the original note were not included. [address] [address] Admission Date: 10/03/2023 Discharge Date: 10/09/2023 RECOMMENDED TO DO FOR NEXT PROVIDER(S): Wound care- cleanse with soap and water daily, pack with betadine WTD ID follow up in 3-5 weeks Midline exchange 21 days from 10/02- not candidate for PICC Weekly labs on Fridays, inculding October 11- CMP, CBCw/diff and CRP- monitor renal function CLOSELY,need for K supplement Daily standing weights, monitor CHF closely REASON(S) FOR MEDICATION CHANGE(S): - lisinopril on hold- resolving kidney injury - monitor weights DISPOSITION ON DISCHARGE: rehab WP Active Hospital Problems Diagnosis Anemia of chronic renal failure, stage 4 (severe) (HCC) Acute osteomyelitis of calcaneum, right (HCC) Demand ischemia (HCC) Hyponatremia HCAP (healthcare-associated pneumonia) Acute on chronic heart failure with preserved ejection fraction (HFpEF) (HCC) Chronic kidney disease, stage IV (severe) (HCC) Moderate pulmonary hypertension (HCC) Morbid obesity (HCC) Type 2 diabetes mellitus, with long-term current use of insulin (HCC) Hypothyroid Resolved Hospital Problems Diagnosis Date Resolved *Principal Diagnosis - Severe sepsis with acute organ dysfunction (HCC) 10/08/2023 Acute renal failure with acute tubular necrosis superimposed on stage 4 chronic kidney disease (HCC) 10/09/2023 Acute renal failure superimposed on stage 4 chronic kidney disease (HCC) 10/08/2023 Acute on chronic respiratory failure with hypoxia (HCC) 10/08/2023 Rhinovirus infection 10/08/2023 ADMISSION HISTORY & PHYSICAL EXAM (focused): Per Admitting hospitalist "PRESENTING PROBLEM: respiratory failure HPI: This is a 63 y woman with below pmh that includes morbid obesity, stage 3-4 ckd, HTN, dm2, fibromyalgia, hypothyroid, anemia of chronic disease, and chf with preserved EF. She was admitted here 1.5 months ago with heart failure, from a rehab [facility]. She was also treated for right heel osteomyelitis with meropenem, and according to patient this treatment ended weeks ago. On last Sunday,she received blood transfusion for anemia, and she initially felt ok but several days later developed fever, cough and worsening dyspnea; she was at infusion center for midline placement to continue meropenem treatment and was so short of breath that she was sent to ED. Patient was previously on 2Loxygen but needed to be placed on high flow o2. She states that she has been compliant with fluid restriction and has used her diuretics. Overall she is a poor historian, and is unclear about her antibiotic treatment, fevers, and medications. Physical Exam Most Recent Vital Signs: BP: 120 mmHg/62 mmHg (10/03/231899) Pulse: 80 (10/03/231899) Resp: 22 (10/03/231899) Temp: 37.33 C (10/03/231904) Temp Summary: Temp Min: 37.1 C (98.8 F) Max: 37.3 C (99.2 F) SpO2: 93 % (10/03/231899) O2 flow rate: 35 L/MIN (10/03/231811) Supplemental O2 Delivery: HFNC (10/03/231811) Constitutional: chronically ill appearing middle aged woman resting in bed, on high lfow 02 HEENT: normal: normocephalic, atraumatic Eyes: sclera and conjunctiva normal Neck: supple CV: normal rate Chest: normal respiratory effort, coarse breath sounds bilaterally Abdomen: soft, bowel sounds normal, no tenderness Extremities: 3+ edema bilaterally Skin: warm, dry, right foot in fresh bandages. Neuro: alert and oriented x2, vague historian, generalized weakness but otherwise non-focal" - [facility] COURSE (focused): Patient admitted with acute on chronic respiratory failure. She required HFNC. - multifocal PNA, rhinovirus respiratory infection - improved with inhaled bronchodilators, flutter, chest PT -02 down to baseline Osteo of right heel - pseudomonas - ID consulted - Patient had midline placed on 10/02- in 21 days will need it to replaced to continue below abx - NOT A CANDIDATE FOR PICC PER RENAL Syndrome Osteomyelitis Microbiology Pseudomonas aeruginosa Antibiotic Meropenem 500 mg iv q12 hours (adjust for renal function) End Date 11/13/23 Vascular access: Remove intravascular access after completion of antibiotics Recommended followup imaging studies: Not applicable LABORATORY MONITORING: Lab Test Frequency End Date CBC with diff CMP CRP Q week 11/13/23 Follow up in 3-5 weeks with ID NELSON on CKD4 - diuretics held - restarted bumex once daily day prior to discharge - resume home bumex bid with metolazone - close renal follow up- check above labs on Sunday-October 11 WOUND CARE RECS-Wound care- cleanse with soap and water daily, pack with betadine WTD Operations & Procedures: none Complications: none significant Significant Lab and Imaging Results: Recent Results (from the past 24 hour(s)) GLUCOSE METER, POINT OF CARE Collection Time: 10/08/23 11:45 AM Result Value Ref Range Glucose Meter 125 (H) 70 - 120 mg/dL GLUCOSE METER, POINT OF CARE Collection Time: 10/08/23 4:28 PM Result Value Ref Range Glucose Meter 176 (H) 70 - 120 mg/dL GLUCOSE METER, POINT OF CARE Collection Time: 10/08/23 9:16 PM Result Value Ref Range Glucose Meter 184 (H) 70 - 120 mg/dL BASIC METABOLIC PANEL Collection Time: 10/09/23 4:56 AM Result Value Ref Range BUN 101 (H) 6 - 20 mg/dL Creatinine 2.6 (H) 0.5 - 1.0 mg/dL Estimated Glomerular Filtration Rate 20 (L) >=60 mL/min Sodium 132 (L) 135 - 146 mmol/L Potassium 4.0 3.5 - 5.1 mmol/L Chloride 95 (L) 98 - 107 mmol/L CO2 24 22 - 32 mmol/L Anion Gap 13 7 - 15 mmol/L Glucose 187 (H) 70 - 120 mg/dL Calcium 8.8 8.4 - 10.2 mg/dL CBC Collection Time: 10/09/23 4:56 AM Result Value Ref Range WBC 15.33 (H) 4.00 - 10.80 K/uL RBC 2.75 3.85 - 5.15 M/uL HGB 7.8 (L) 12.0 - 15.3 g/dL HCT 24.0 (L) 36.0 - 45.2 % MCV 87.3 81.5 - 97.5 fL MCH 28.4 27.0 - 34.0 pg MCHC 32.5 32.0 - 36.0 g/dL RDW 15.1 11.5 - 15.5 % PLT 319 140 - 400 K/uL MPV 11.0 6.6 - 11.1 fL nRBCs 0 <=0 /100 WBCs MAGNESIUM Collection Time: 10/09/23 4:56 AM Result Value Ref Range Magnesium 1.7 1.5 - 2.6 mg/dL GLUCOSE METER, POINT OF CARE Collection Time: 10/09/23 7:42 AM Result Value Ref Range Glucose Meter 151 (H) 70 - 120 mg/dL } XR CHEST 1 VIEW Final Result EXAM XR CHEST 1 VIEW- 10/06/2023 8:38 am HISTORY f/u hypoxia COMPARISON Chest x-ray 10/03/2023 and 08/19/2023 TECHNIQUE Portable semi-upright AP view of the chest was obtained. FINDINGS Catheters: None Tubes: None Foreign bodies: None seen Cardiac silhouette is enlarged. Mitral annular calcification noted. Calcification of the aortic knob. Increased vascularity in the lung doss. Interval improved aeration when compared to prior examination of 10/03/2023 with improved consolidation in the lung bases. IMPRESSION IMPRESSION Residual opacity in the lung doss with improved consolidations in the lung doss when compared to prior examination. MRI FOOT RIGHT WO CONTRAST Final Result EXAM MRI FOOT RIGHT WO CONTRAST-RT 10/04/2023 11:56 am HISTORY Provided clinical history: "osteo heel" COMPARISON Right foot radiographs dated June 03, 2023 and right ankle MRI dated June 04, 2023. TECHNIQUE Multiplanar, multi-sequence MRI of the right hindfoot/ankle was performed without IV contrast. FINDINGS There is a large soft tissue wound/ulcer at the plantar aspect of the heel, with a tract that extends to the plantar surface of the calcaneal tuberosity. There is extensive bone marrow enhancement and loss of T1 marrow signal within the tuberosity, consistent with osteomyelitis. There is also prominent edema in the soft tissues surrounding the ulcer. High-grade tear/rupture of the plantar fascia, including a complete tear of the central band, partial tear of the lateral band, and probable complete tear of the medial band. There is also a near complete rupture of the Achilles tendon at its insertion, with only a thin band of tendon fibers possibly remaining intact. Diffuse edema and atrophy of the intrinsic foot musculature. IMPRESSION IMPRESSION 1. Osteomyelitis of the calcaneal tuberosity, with a large soft tissue wound/ulcer and sinus tract at the plantar aspect of the heel. 2. High-grade tear/rupture of the plantar fascia. 3. Near-complete rupture of the Achilles tendon. XR CHEST 1 VIEW Final Result PROCEDURE INFORMATION: Exam: XR Chest Exam date and time: 10/03/2023 3:59 PM Age: 63 years old Clinical indication: Shortness of breath; Additional info: SOB TECHNIQUE: Imaging protocol: Radiologic exam of the chest. Views: 1 view. COMPARISON: DX XR CHEST 1 VIEW 08/19/2023 5:58 PM FINDINGS: Lungs: Dense consolidation in the right lower lobe and patchy infiltrates in the left lower lobe consistent with multifocal pneumonia. Pleural spaces: Unremarkable. No pleural effusion. No pneumothorax. Heart/Mediastinum: Unremarkable. No cardiomegaly. Bones/joints: Unremarkable. IMPRESSION IMPRESSION: Dense consolidation in the right lower lobe and patchy infiltrates in the left lower lobe consistent with multifocal pneumonia. THIS DOCUMENT HAS BEEN ELECTRONICALLY SIGNED BY FREEDOM POOL MD Susceptibility data from last 90 days. Collected Specimen Info Organism Cefepime Ciprofloxacin Levofloxacin Piperacillin Tazobactam Tobramycin 10/02/23 Deep Wound from Heel, Right Pseudomonas aeruginosa S S S S S \\ Results Pending at Discharge: Lab Results Pending at Discharge: None MEDICATION UPDATES AT DISCHARGE START taking these medications INSTRUCTIONS guaiFENesin 100 MG/5ML liquid Commonly known as: Robitussin Take 10 mL by mouth every 4 hours as needed for Cough. meropenem IV (AMBULATORY) Commonly known as: Merrem Replaces: meropenem 1 G in 50 ml 1 G/50ml Administer 500 mg intravenously in the morning and 500 mg before bedtime. CHANGE how you take these medications INSTRUCTIONS * albuterol HFA 108 (90 BASE) MCG/ACT inhaler What changed: Another medication with the same name was added. Make sure you understand how and when to take each. Inhale 2 Puffs by mouth every 6 hours as needed for Dyspnea. * Albuterol Sulfate (2.5 MG/3ML) 0.083% nebulizer solution Commonly known as: Proventil What changed: You were already taking a medication with the same name, and this prescription was added. Make sure you understand how and when to take each. Inhale 1 Vial via nebulizer every 4 hours as needed for Shortness of Breath. amLODIPine 2.5 MG Tablet Commonly known as: Norvasc What changed: medication strength how much to take Take 1 Tablet by mouth in the morning. * This list has 2 medication(s) that are the same as other medications prescribed for you. Read thedirections carefully, and ask your doctor or other care provider to review them with you. CONTINUE taking these medications INSTRUCTIONS Acetaminophen 325 MG Tablet Commonly known as: Tylenol Notes to patient: Used to ease pain and fever Take 2 Tablets by mouth every 6 hours as needed for Pain, Mild, Pain, Moderate or Pain, Severe. amitriptyline 100 MG Tablet Commonly known as: [...] needed for Constipation. Bumetanide 2 MG Tablet Notes to patient: Diuretic (water pill) that helps prevent swelling and/or manages high blood pressure Take 1 Tablet by mouth in the morning and 1 Tablet before bedtime. cholecalciferol (VIT D3) 10 MCG (400 UNIT) Tabs Commonly known as: Vitamin D3 Notes to patient: Used to treat or prevent vitamin D deficiency Take 50 Tablets by mouth in the morning. CYANOCOBALAMIN 250 MCG Tabs Commonly known as: vitamin B-12 Notes to patient: Used to help with some kinds of anemia and to treat or prevent low vitamin B12 Take 1 Tablet by mouth in the morning. DAKINS 1/2 strength (0.25%) 0.25 % Soln Notes to patient: Used to clean wounds, treat ulcers, and avoid or treat skin infections Apply topically to affected area daily. Ferrous Sulfate 325 (65 FE) MG Tablet Commonly known as: Feosol Notes to patient: Used to treat and prevent iron deficiency anemia Take 1 Tablet by mouth daily with breakfast. fluticasone 50 MCG/ACT nasal spray Commonly known as: Flonase Notes to patient: Used to ease allergy signs and treat certain nose and sinus problems with nasal polyps Administer 1 [place] into nostril in the morning. folic acid 1 MG Tablet Notes to patient: Used to help with some kinds of anemia and to aid the diet needs before, during, and after Take 1 Tablet by mouth in the morning. Gabapentin 100 MG Capsule Commonly known as: Neurontin Notes to patient: Used to treat painful nerve diseases and to help control certain kinds of seizures Take 1 Capsule by mouth 3 times a day as needed (neuropathicpain). hydrOXYzine HCl 50 MG Tablet Notes to patient: Used to treat anxiety, mood problems, and treat upset stomach and throwing up Take 1 Tablet by mouth every 8 hours as needed for Anxiety. insulin aspart 100 UNIT/ML injection Commonly known as: NovoLOG Notes to patient: Used to lower blood sugar in patients with high blood sugar (diabetes) Glucose 80-150 (units): 0 Glucose 151-200 (units): [...] 5 MG Tabs Commonly known as: Claritin Notes to patient: Used to ease allergy signs and to treat hives Take 1 Tablet by mouth in the morning. melatonin 3 MG Tablet Notes to patient: Used to promote sleep Take 1 Tablet by mouth at bedtime. metOLazone 2.5 MG Tablet Commonly known as: Zaroxolyn Notes to patient: Used to treat high blood pressure and get rid of extra fluid Take 1 Tablet by mouth in the morning. milk of magnesia 400 MG/5ML suspension Notes to patient: Used to treat constipation, heartburn, and upset stomach Take 30 mL by mouth daily as needed for Constipation. omeprazole 20 MG Cpdr Commonly known as: PriLOSEC Notes to patient: Used to treat or prevent GI (gastrointestinal) ulcers, gastroesophageal reflux disease (GERD; acid reflux), heartburn, syndromes caused by lots of stomach acid, and ulcers of the esophagus Take 1 Capsule by mouth daily before breakfast. ondansetron 4 MG Tablet Commonly known as: Zofran Notes to patient: Used to treat nausea and vomiting Take 1 Tablet by mouth every 8 [...] 1 Tablet by mouth in the morning. Voltaren Arthritis Pain 1 % Gel Generic drug: Diclofenac Notes to patient: Used to ease pain and treat some types of arthritis Apply 1 % topically to affected area 4 times a day as needed for Pain, Moderate or Pain, Severe. Apply to shoulder, affected area * This list has 2 medication(s) that are the same as other medications prescribed for you. Read thedirections carefully, and ask your doctor or other care provider to review them with you. STOP taking these medications Lisinopril 40 MG Tablet meropenem 1 G in 50 ml 1 G/50ml Commonly known as: Merrem Replaced by: meropenem IV (AMBULATORY) potassium chloride ER 10 MEQ Tbcr SCHEDULED FOLLOW-UP: Future Appointments Appt Date/Time Provider Department 11/13/2023 11:00 AM Ricky Carnes MD Infectious Disease, [facility] 12/25/2023 10:00 AM Joslyn Barney MD Nephrology, [facility] Outpatient Follow Up Basic Metabolic Panel CBC CBC with WBC Differential CRP (Inflammatory Marker) Comprehensive Metabolic Panel Other Information Indwelling Devices: LINES ALL Duration Midline Catheter Left;Upper Arm 5 days Peripheral Line Right Hand 22 Gauge 5 days Vital Signs (last recorded): Most Recent Systolic BP: 125 mmHg (10/09/23 0740) Most Recent Diastolic BP: 53 mmHg (10/09/2340) Pulse: 61 (10/09/23743) Resp: 16 (10/09/23405) Most Recent Temperature: 36.22 C (10/09/23739) Weight: 125.8 kg (277 lb 5.4 oz) (10/09/23405) SpO2: 98 % (10/09/23743) O2 flow rate: 2 L/MIN (10/09/23743) Allergies: Clarithromycin, Dextromethorphan, Doxylamine, Oqhbiipwz-xjqdbxocod-wj-apap, Amoxicillin,Food (see comments), Latex, and Sulfa antibiotics Activity: as tolerated Diet: Orders Placed This Encounter Procedures Heart Healthy Consistent Carbohydrate Diet : Sodium: 2 gm --- Number of Choices: 4 (60 grams) --- Fluid Restriction (ml): None Code Status: Full Code Condition on Discharge: stable Isolation status: None Cognition: normal HOSPITAL CONSULTS ORDERED: WOUND CONSULT IP NEPHROLOGY CONSULT IP INFECTIOUS DISEASE CONSULT IP ADULT OCCUPATIONAL THERAPY CONSULT IP ADULT PHYSICAL THERAPY CONSULT IP ADULT/PEDS ORTHOPAEDICS CONSULT IP IV THERAPY CONSULT IP ADULT PHYSICAL THERAPY CONSULT IP REFERRING PHYSICIAN: Ref: [id number]] NO STRE[address] ADDRESS AVAILABLE None (office) None (fax) PRIMARY CARE PROVIDER: PCP: Paco Cordero MD [address] / [place] [id number] (office) [phone] (fax) Note: To contact a physician responsible for this patients hospital care, please call [facility] [phone]. I spent a total of 45 minutes coordinating, documenting, and providing care for this patient excluding time spent in the performance of separately billed services. documented in this encounter Discharge Instructions * Discharge Instr - AVS* Ayana Summers MD - 10/08/2023 7:47 AM EDT Discharge Date: 10-09-23 Brief summary of inpatient care: Alexandria Smith was admitted to [facility] on 10/03/2023 with shortness of breath from home The primary diagnosis at discharge was Multifocal pneumonia, acute kidney injury and bone infectionof your foot called osteomyeleitis. Alexandria Smith is being discharged to [facility]. The Hospital Medicine physician(s) at the time of discharge included: Ayana Summers MD To reach this Provider Sunday through Sunday (8:00 AM to 4:30 PM) for any questions or test results: Call [phone] For after-hours concerns: Call [phone] and have your provider paged, or the provider long haul truck driver for the Department of Hospital Medicine paged. Inpatient test results pending: none Operations & Procedures: none Code Status: Full Code Advance Directive Documentation: Advance Directive Does the Patient have an Advance Directive? Not Addressed Diet: Orders Placed This Encounter Procedures Heart Healthy Consistent Carbohydrate Diet : Sodium: 2 gm --- Number of Choices: 4 (60 grams) --- Fluid Restriction (ml): None Activity: As tolerated, Walker or cane, and As instructed by Physical Therapy Alexandria should continue the following therapies: Physical Therapy, Occupational Therapy, and IV antibiotic administration and wound care Wound Care: Keep the wound area clean and dry. Wash your hands before changing the dressing. If you need to change the dressing or care for your wound, follow your doctors specific instructions. Ask your doctor about when it is safe to shower, bathe, or soak in clean water. Never use contaminated water or have pets near your wound. Isolation Status: None Mentation at Discharge: normal Future Studies Required: Weekly starting October 11- CMP, CBCw/diff and CRP Respiratory Support at Discharge: Resume Prior to Admission Respiratory Support PRIMARY CARE PROVIDER: PCP: Paco Cordero MD [address] / [place] [id number] (office) [phone] (fax) Special Instructions: End date for medications including antibiotics and anticoagulants: - Meropenem through 9-3 Sepsis Discharge Instructions Sepsis is the body's extreme response to an infection. It is a life-threatening medical emergency. Sepsis happens when an infection you already have triggers a chain reaction throughout your body. Infections that lead to sepsis most often start in the lung, urinary tract, skin, or gastrointestinal tract. Without timely treatment, sepsis can rapidly lead to tissue damage, organ failure, and . HOW DO YOU FEEL TODAY? ALL CLEAR You are feeling well: Your breathing feels normal for you You can do your normal activities without unusual tiredness or shortness of breath Your appetite is normal You are sleeping like you normally do What you should do: Take all medications as prescribed Eat healthy foods Be active every day, as tolerated Include some exercise, like walking, in your daily routine Balance your activity with rest periods CAUTION You are feeling worse: You are more short of breath You are more tired and cannot do your usual activities You have fever and chills You are sleeping abnormally Your symptoms wake you up What you should do: CALL YOUR PRIMARY CARE PROVIDER !! Limit your activities Continue taking all medications as prescribed Eat smaller meals more often during the day rather than 3 big meals - Call your primary care physician or seek medical attention if you develop fever, nausea or inability to take your medications as directed. If you are receiving IV Antibiotics, please follow the instructions provided by the infusion clinic. Central Line: Call the Infectious disease provider right away if any of the following occur: Pain or burning in shoulder, chest, back, arm, or leg Fever of 100.4F (38.0C) or higher Chills Signs of infection at the catheter site (pain, redness, drainage, or stinging) Coughing, wheezing, or shortness of breath A racing or irregular heartbeat Muscle stiffness or trouble moving Tightness in area above the catheter site Gurgling noises coming from the catheter The catheter falls out, breaks, cracks, leaks, or has other damage Problems flushing the catheter Worsening Infection or Sepsis: If you experience any of the symptoms below and you are unable to reach your Primary Care Provider,call 911 or proceed to the nearest Emergency Room!! Notice a fast or irregular heart beat Confusion or disorientation Extreme pain or discomfort Fever, shivering, or feeling very cold Clammy or sweaty skin Become easily dizzy or lightheaded Feel more short of breath than usual You are sleepier than normal and have difficulty staying awake without any specific reason Wound: INSTRUCTIONS: Cleanse daily with soap and water. Pack with betadine WTD. Call the podatrist right away if any of the following occur: Pain or burning at incision site Fever of 100.4F (38.0C) or higher Chills Signs of infection (pain, redness, drainage, or stinging) at the site of the wound Please have the patient return to the Emergency Department for any of the following: chest pain, chest pressure, chest tightness, difficulty breathing, or confusion. The patient should not smoke or use tobacco products in any way! {Please sign prescriptions for all controlled substances that the patient may need to take while inthe inpatient facility. Once complete, this statement can be deleted.} documented in this encounter Progress Notes * Ayana Summers MD - 10/08/2023 1:53 PM EDT Images from the original note were not included. [facility] [id number] INTERVAL HISTORY: 63-year-old female with history of hypertension, type 2 diabetes, obesity, hypothyroidism, CKD stage 3 baseline creatinine of 2, right calcaneal chronic ulcer with osteomyelitis and CHF with preserved EF was admitted with respiratory failure and found have multifocal pneumonin, nelson on CKD. ID recs placed for IV meropenem Patient with midline Oxygen down titrated to 2L Subjective: Breathing slightly improved today. She slept heavily last night and woke up confused. She says she still feels a little "whifty" but she is alert and oriented x4. She has not had a bowel movement butendorses some bloating, no nausea, no vomiting. We discuss resuming diuretics today and awaiting insurance authorization. She remains anemic, but I explained she does not qualify for blood transfusion. She confirms understanding. Objective Physical Exam Most Recent Vital Signs: BP: 149 mmHg/80 mmHg (10/08/23 1139) Pulse: 59 (10/08/23 1139) Resp: 16 (10/08/23 1139) Temp: 36.22 C (10/08/23 1139) Temp Summary: Temp Min: 36.2 C (97.2 F) Max: 36.6 C (97.9 F) SpO2: 94 % (10/08/231138) O2 flow rate: 2 L/MIN (10/08/231138) Supplemental O2 Delivery: Nasal Cannula (10/08/231138) BP 149/80 | Pulse 59 | Temp 36.2 C (97.2 F) (Temporal Artery) | Resp 16 | Ht 1.575 m (5' 2") | Wt 126.4 kg (278 lb 10.6 oz) | LMP 11/22/2002 | SpO2 94% | BMI 50.97 kg/m | BSA 2.35 m Vitals reviewed over last 24 hours General: pale, pleasant female, was confused this morning, mental status near baseline per patient now HEEN: ophx clear, no nasal exudate NECK: no stridor, no JVD PULM: minimal rhonchi, scattered exp wheezes, no crackles, no stridor CVS: RRR ABD: soft, NT, ND +BS EXT: WWP, 3+ peripheral edema,heel wound dressing c/d/i Neuro:alert and oriented x3, CN 2-12 grossly intact Psych: normal mood and affect Peripheral Line Right Hand 22 Gauge (Active) Number of days: 5 Midline Catheter Left;Upper Arm (Active) Number of days: 5 STUDIES: Encounter Orders Labs and other studies reviewed with pertinent findings noted below: Recent Results (from the past 24 hour(s)) GLUCOSE METER, POINT OF CARE Collection Time: 10/07/23 4:53 PM Result Value Ref Range Glucose Meter 187 (H) 70 - 120 mg/dL GLUCOSE METER, POINT OF CARE Collection Time: 10/07/23 9:36 PM Result Value Ref Range Glucose Meter 260 (H) 70 - 120 mg/dL GLUCOSE METER, POINT OF CARE Collection Time: 10/07/23 10:16 PM Result Value Ref Range Glucose Meter 270 (H) 70 - 120 mg/dL BASIC METABOLIC PANEL Collection Time: 10/08/23 5:46 AM Result Value Ref Range BUN 106 (H) 6 - 20 mg/dL Creatinine 2.9 (H) 0.5 - 1.0 mg/dL Estimated Glomerular Filtration Rate 18 (L) >=60 mL/min Sodium 130 (L) 135 - 146 mmol/L Potassium 4.0 3.5 - 5.1 mmol/L Chloride 95 (L) 98 - 107 mmol/L CO2 25 22 - 32 mmol/L Anion Gap 10 7 - 15 mmol/L Glucose 148 (H) 70 - 120 mg/dL Calcium 8.5 8.4 - 10.2 mg/dL CBC Collection Time: 10/08/23 5:46 AM Result Value Ref Range WBC 15.17 (H) 4.00 - 10.80 K/uL RBC 2.62 3.85 - 5.15 M/uL HGB 7.4 (L) 12.0 - 15.3 g/dL HCT 23.1 (L) 36.0 - 45.2 % MCV 88.2 81.5 - 97.5 fL MCH 28.2 27.0 - 34.0 pg MCHC 32.0 32.0 - 36.0 g/dL RDW 15.0 11.5 - 15.5 % PLT 321 140 - 400 K/uL MPV 11.4 6.6 - 11.1 fL nRBCs 0 <=0 /100 WBCs MAGNESIUM Collection Time: 10/08/23 5:46 AM Result Value Ref Range Magnesium 1.7 1.5 - 2.6 mg/dL PROCALCITONIN Collection Time: 10/08/23 5:46 AM Result Value Ref Range Procalcitonin 0.47 (H) <0.10 ng/mL GLUCOSE METER, POINT OF CARE Collection Time: 10/08/23 8:36 AM Result Value Ref Range Glucose Meter 122 (H) 70 - 120 mg/dL GLUCOSE METER, POINT OF CARE Collection Time: 10/08/23 11:45 AM Result Value Ref Range Glucose Meter 125 (H) 70 - 120 mg/dL } Recent Cultures (2 Weeks) 10/05/2023 10/03/2023 10/03/2023 10/02/2023 1:52 PM 8:29 PM 8:26 PM 11:25 AM STAIN DESCRIPTION Purulent specimen, >25 neutrophils/low power microscopic field. -- -- No squamous epithelial cells seen Moderate Polymorphonuclear leukocytes No polymorphonuclear leukocytes seen Rare Yeast Moderate Gram positive cocci CULTURE GROWTH Light growth normal genevieve -- -- Many Pseudomonas aeruginosa BLOOD CULTURE GROWTH -- No growth to date No growth to date -- Assessment and Plan IMPRESSION : Principal Problem (Resolved): Severe sepsis with acute organ dysfunction (HCC) Active Problems: Type 2 diabetes mellitus, with long-term current use of insulin (HCC) Hypothyroid Acute on chronic heart failure with preserved ejection fraction (HFpEF) (HCC) Moderate pulmonary hypertension (HCC) Chronic kidney disease, stage IV (severe) (HCC) Morbid obesity (HCC) HCAP (healthcare-associated pneumonia) Demand ischemia (HCC) Hyponatremia Acute osteomyelitis of calcaneum, right (HCC) Anemia of chronic renal failure, stage 4 (severe) ([facility]) Resolved Problems: Rhinovirus infection Acute on chronic respiratory failure with hypoxia (HCC) Acute renal failure superimposed on stage 4 chronic kidney disease (HCC) DIFFERENTIAL AND PLAN: Acute on chronic hypoxic respiratory failure, HCAP, rhinovirus infection - continue current abx- improving - flutter, incentive spirometry - OOB to chair - inhaled bronchodilators - abx as is for osteo - discontinued doxy, legionella was negative Right heel osteo - appreciate ID - wound care recs - midline in place will need to be exchanged 21 days - Meropenem 500 mg iv q12 hours (adjust for renal function) NELSON on CKD4 - appreciate nephrology input - avoid nephrotoxins - given metolozone and home bumex today - follow up BMP in the morning - strict I and O - daily standing weight - weight rechecked today was erroneusly written as 287, repeat is 278 - no picc will require midline switch out Anemia of chronic renal failure stage 4 - check iron - check b12 - check folic acid - replete as needed Constipation - ENEMA TODAY - bid miralax - dulcolax - senna docusate DM2 - basal bolus - monitor glucose Other home medications as directed. Albuterol Sulfate (Proventil) (2.5 MG/3ML) 0.083% inhalation solution 2.5 mg HYDROcodone Bit-Homatrop MBr (Hycodan) oral solution 5 mL Polyethylene Glycol 3350 (Miralax) oral powder 17 g AND [DISCONTINUED] senna-docusate (Senokot-S) 1 Tablet AND [DISCONTINUED] Bisacodyl (Dulcolax) tab 5 mg AND [DISCONTINUED] Bisacodyl (Dulcolax) supp 10 mg senna-docusate (Senokot-S) 1 Tablet Benzonatate (Tessalon Perles) cap 100 mg guaiFENesin (Robitussin) oral liquid 200 mg Menthol ([place]) cough drop 1 Lozenge Cetirizine (ZyrTEC) oral solution 5 mg meropenem in NSS (Merrem) ivpb 500 mg oxygen GAS phenol (chlorASEPTIC) spray 3 [place] Acetaminophen (Tylenol) tab 650 mg albuterol (VENTOLIN HFA/PROVENTIL HFA) inhaler amitriptyline (Elavil) tab 100 mg dextrose 50% inj 25 mL dextrose 50% inj 50 mL doxycycline tab 100 mg fluticasone (Flonase) nasal inhaler 1 [place] folic acid tab 1 mg Gabapentin (Neurontin) cap 100 mg glucagon (Glucagen) inj 1 mg Glucose (Glutose 15) 40 % gel 15 g of glucose Glucose (Glutose 15) 40 % gel 30 g of glucose glucose chew tab 16 g hEParin inj 7,500 Units hydrOXYzine HCl tab 50 mg insulin aspart (NovoLOG) inj Insulin Glargine (Lantus) inj 10 Units levothyroxine (Levoxyl) tab 175 mcg melatonin tab 3 mg omeprazole (PriLOSEC) cap 20 mg Simvastatin (Zocor) tab 20 mg sodium chloride 0.9 % flush/inj 3 mL trimethobenzamide (Tigan) inj 100 mg Orders Placed This Encounter Procedures Heart Healthy Consistent Carbohydrate Diet : Sodium: 2 gm --- Number of Choices: 4 (60 grams) --- Fluid Restriction (ml): None PHARMACOLOGIC VTE PROPHYLAXIS: hEParin CODE STATUS: Full Code EXPECTED DISCHARGE DATE: 10/09/2023 I spent a total of 51 minutes coordinating, documenting, and providing care for this patient excluding time spent in the performance of separately billed services. * Ayana Summers MD - 10/07/2023 3:14 PM EDT Images from the original note were not included. [facility] [id number] INTERVAL HISTORY: 63-year-old female with history of hypertension, type 2 diabetes, obesity, hypothyroidism, CKD stage 3 baseline creatinine of 2, right calcaneal chronic ulcer with osteomyelitis and CHF with preserved EF was admitted with respiratory failure and found have multifocal pneumonin, nelson on CKD. ID recs placed for IV meropenem Patient with midline Oxygen down titrated to 2L Subjective: +constipation +junky thick sputum, unable to get it up Objective Physical Exam Most Recent Vital Signs: BP: 137 mmHg/60 mmHg (10/07/23 1058) Pulse: 62 (10/07/23 1413) Resp: 18 (10/07/231412) Temp: 36.22 C (10/07/23 1058) Temp Summary: Temp Min: 36.1 C (97 F) Max: 36.6 C (97.9 F) SpO2: 97 % (10/07/23 141) O2 flow rate: 2 L/MIN (10/07/23 141) Supplemental O2 Delivery: Nasal Cannula (10/07/231412) BP 137/60 | Pulse 62 | Temp 36.2 C (97.2 F) (Temporal Artery) | Resp 18 | Ht 1.575 m (5' 2") | Wt 126.5 kg (278 lb 14.1 oz) | LMP 11/22/2002 | SpO2 97% | BMI 51.01 kg/m | BSA 2.35 m Vitals reviewed over last 24 hours General: upbeat, pleasant female, says she is doing so much better HEEN: ophx clear, no nasal exudate NECK: no stridor, no JVD PULM: coarse rhonchi, scattered exp wheezes, no crackles CVS: RRR ABD: soft, NT, ND +BS EXT: WWP, 2+ peripheral edema,heel wound dressing c/d/i Neuro:alert and oriented x3, CN 2-12 grossly intact Psych: normal mood and affect Peripheral Line Right Hand 22 Gauge (Active) Number of days: 4 Midline Catheter Left;Upper Arm (Active) Number of days: 4 STUDIES: Encounter Orders Labs and other studies reviewed with pertinent findings noted below: Recent Results (from the past 24 hour(s)) GLUCOSE METER, POINT OF CARE Collection Time: 10/06/23 4:32 PM Result Value Ref Range Glucose Meter 203 (H) 70 - 120 mg/dL GLUCOSE METER, POINT OF CARE Collection Time: 10/06/23 9:29 PM Result Value Ref Range Glucose Meter 157 (H) 70 - 120 mg/dL BASIC METABOLIC PANEL Collection Time: 10/07/23 3:44 AM Result Value Ref Range BUN 108 (H) 6 - 20 mg/dL Creatinine 3.0 (H) 0.5 - 1.0 mg/dL Estimated Glomerular Filtration Rate 17 (L) >=60 mL/min Sodium 131 (L) 135 - 146 mmol/L Potassium 3.7 3.5 - 5.1 mmol/L Chloride 94 (L) 98 - 107 mmol/L CO2 24 22 - 32 mmol/L Anion Gap 13 7 - 15 mmol/L Glucose 131 (H) 70 - 120 mg/dL Calcium 8.4 8.4 - 10.2 mg/dL MAGNESIUM Collection Time: 10/07/23 3:44 AM Result Value Ref Range Magnesium 1.8 1.5 - 2.6 mg/dL PHOSPHORUS Collection Time: 10/07/23 3:44 AM Result Value Ref Range Phosphorus 5.2 (H) 2.5 - 4.8 mg/dL CBC Collection Time: 10/07/23 3:44 AM Result Value Ref Range WBC 15.88 (H) 4.00 - 10.80 K/uL RBC 2.85 3.85 - 5.15 M/uL HGB 8.0 (L) 12.0 - 15.3 g/dL HCT 25.1 (L) 36.0 - 45.2 % MCV 88.1 81.5 - 97.5 fL MCH 28.1 27.0 - 34.0 pg MCHC 31.9 32.0 - 36.0 g/dL RDW 15.0 11.5 - 15.5 % PLT 321 140 - 400 K/uL MPV 11.2 6.6 - 11.1 fL nRBCs 0 <=0 /100 WBCs CALCIUM, IONIZED Collection Time: 10/07/23 3:44 AM Result Value Ref Range Calcium, Ionized 1.16 1.13 - 1.32 mmol/L PROCALCITONIN Collection Time: 10/07/23 3:44 AM Result Value Ref Range Procalcitonin 0.69 (H) <0.10 ng/mL PT INR Collection Time: 10/07/23 3:44 AM Result Value Ref Range Prothrombin Time 16.1 (H) 11.6 - 15.2 seconds INR 1.3 (H) 0.8 - 1.2 TYPE AND SCREEN Collection Time: 10/07/23 3:44 AM Result Value Ref Range ABO A Rh Positive Red Blood Cell Antibody Screen Negative Specimen Expiration Date 10/10/2023 23:59 GLUCOSE METER, POINT OF CARE Collection Time: 10/07/23 7:33 AM Result Value Ref Range Glucose Meter 123 (H) 70 - 120 mg/dL GLUCOSE METER, POINT OF CARE Collection Time: 10/07/23 11:31 AM Result Value Ref Range Glucose Meter 218 (H) 70 - 120 mg/dL } Recent Cultures (2 Weeks) 10/05/2023 10/03/2023 10/03/2023 10/02/2023 1:52 PM 8:29 PM 8:26 PM 11:25 AM STAIN DESCRIPTION Purulent specimen, >25 neutrophils/low power microscopic field. -- -- No squamous epithelial cells seen Moderate Polymorphonuclear leukocytes No polymorphonuclear leukocytes seen Rare Yeast Moderate Gram positive cocci CULTURE GROWTH Light growth normal genevieve -- -- Many Pseudomonas aeruginosa BLOOD CULTURE GROWTH -- No growth to date No growth to date -- Assessment and Plan IMPRESSION : Principal Problem: Severe sepsis with acute organ dysfunction (HCC) Active Problems: Type 2 diabetes mellitus, with long-term current use of insulin (HCC) Hypothyroid Acute on chronic heart failure with preserved ejection fraction (HFpEF) ([facility]) Moderate pulmonary hypertension ([facility]) Chronic kidney disease, stage IV (severe) ([facility]) Morbid obesity ([facility]) HCAP (healthcare-associated pneumonia) Demand ischemia ([facility]) Hyponatremia Rhinovirus infection Acute osteomyelitis of calcaneum, right (HCC) Acute on chronic respiratory failure with hypoxia ([facility]) Acute renal failure superimposed on stage 4 chronic kidney disease ([facility]) Anemia of chronic renal failure, stage 4 (severe) ([facility]) Resolved Problems: * No resolved hospital problems. * DIFFERENTIAL AND PLAN: Acute on chronic hypoxic respiratory failure, HCAP, rhinovirus infection - continue current abx- improving - flutter, incentive spirometry - OOB to chair - inhaled bronchodilators - abx as is for osteo - complete doxycyline Right heel osteo - appreciate ID - wound care recs - midline in place will need to be exchanged 21 days - Meropenem 500 mg iv q12 hours (adjust for renal function) NELSON on CKD4 - appreciate nephrology input - avoid nephrotoxins - resume diuretic on Sunday - no picc midline Constipation - bid miralax - dulcolax - senna docusate DM2 - basal bolus - monitor glucose Other home medications as directed. Albuterol Sulfate (Proventil) (2.5 MG/3ML) 0.083% inhalation solution 2.5 mg HYDROcodone Bit-[place]omat[place] MBr (Hycodan) oral solution 5 mL Polyethylene Glycol 3350 (Miralax) oral powder 17 g AND [DISCONTINUED] senna-docusate (Senokot-S) 1 Tablet AND [DISCONTINUED] Bisacodyl (Dulcolax) tab 5 mg AND [DISCONTINUED] Bisacodyl (Dulcolax) supp 10 mg Benzonatate (Tessalon Perles) cap 100 mg guaiFENesin (Robitussin) oral liquid 200 mg Menthol ([place]) cough drop 1 Lozenge Cetirizine (ZyrTEC) oral solution 5 mg meropenem in NSS (Merrem) ivpb 500 mg oxygen GAS phenol (chlorASEPTIC) spray 3 [place] Acetaminophen (Tylenol) tab 650 mg albuterol (VENTOLIN HFA/PROVENTIL HFA) inhaler amitriptyline (Elavil) tab 100 mg amLODIPine (Norvasc) tab 10 mg dextrose 50% inj 25 mL dextrose 50% inj 50 mL doxycycline tab 100 mg fluticasone (Flonase) nasal inhaler 1 [place] folic acid tab 1 mg Gabapentin (Neurontin) cap 100 mg glucagon (Glucagen) inj 1 mg Glucose (Glutose 15) 40 % gel 15 g of glucose Glucose (Glutose 15) 40 % gel 30 g of glucose glucose chew tab 16 g hEParin inj 7,500 Units hydrOXYzine HCl tab 50 mg insulin aspart (NovoLOG) inj Insulin Glargine (Lantus) inj 10 Units levothyroxine (Levoxyl) tab 175 mcg melatonin tab 3 mg omeprazole (PriLOSEC) cap 20 mg Simvastatin (Zocor) tab 20 mg sodium chloride 0.9 % flush/inj 3 mL trimethobenzamide (Tigan) inj 100 mg Orders Placed This Encounter Procedures Heart Healthy Consistent Carbohydrate Diet : Sodium: 2 gm --- Number of Choices: 4 (60 grams) --- Fluid Restriction (ml): None PHARMACOLOGIC VTE PROPHYLAXIS: hEParin CODE STATUS: Full Code EXPECTED DISCHARGE DATE: 10/08/2023 I spent a total of 55 minutes coordinating, documenting, and providing care for this patient excluding time spent in the performance of separately billed services. * Robin Childers MD - 10/06/2023 1:49 PM EDT PROGRESS NOTE - Nephrology [facility] [id number] Name: Alexandria Smith Location: [address]/ Date: 10/06/2023 SUBJECTIVE: Seen for acute kidney injury. Main complaint is cough. No shortness of breath or leg swelling. Has chronic ulcer/osteomyelitis on the right calcaneus Review of systems: All systems were reviewed and negative except as noted in above CURRENT HOSPITAL MEDICATIONS: Current Facility-Administered Medications Medication Dose Route Frequency Provider Benzonatate (Tessalon Perles) cap 100 mg 100 mg Oral TID(AM/NOON/HS) Ayana Summers MD guaiFENesin (Robitussin) oral liquid 200 mg 200 mg Oral QID(AM/NOON/PM/HS) Ayana Summers MD Polyethylene Glycol 3350 (Miralax) oral powder 17 g 1 Packet Oral Daily PRN Dante Contreras DO And senna-docusate (Senokot-S) 1 Tablet 1 Tablet Oral BID PRN Dante Contreras DO And Bisacodyl (Dulcolax) tab 5 mg 5 mg Oral Daily PRN Dante Contreras DO And Bisacodyl (Dulcolax) supp 10 mg 10 mg Rectal Daily PRN Dante Contreras DO Cetirizine (ZyrTEC) oral solution 5 mg 5 mg Oral Daily(AM) Dante Contreras DO meropenem in NSS (Merrem) ivpb 500 mg 500 mg IV Piggyback Q12H (1000,2200) Dante Contreras DO oxygen GAS Inhalation Oxygen Dante Contreras DO Menthol ([place]) cough drop 1 Lozenge 1 Lozenge Oral Q2H PRN Dante Contreras DO phenol (chlorASEPTIC) spray 3 [place] 3 [place] Oral Q4H PRN Dante Contreras DO Acetaminophen (Tylenol) tab 650 mg 650 mg Oral Q6H PRN Alan Lozano PA-C albuterol (VENTOLIN HFA/PROVENTIL HFA) inhaler 2 Puff Inhalation Q6H PRN Alan Lozano PA-C amitriptyline (Elavil) tab 100 mg 100 mg Oral QHS Alan Lozano PA-C amLODIPine (Norvasc) tab 10 mg 10 mg Oral Daily(AM) Alan Lozano PA-C dextrose 50% inj 25 mL 25 mL IV Push PRN Alan Lozano PA-C dextrose 50% inj 50 mL 50 mL IV Push PRN Alan Lozano PA-C doxycycline tab 100 mg 100 mg Oral Q12H Kali Mooney MD fluticasone (Flonase) nasal inhaler 1 [place] 1 [place] Nasal Daily(AM) Alan Lozano PA-C folic acid tab 1 mg 1 mg Oral Daily(AM) Alan Lozano PA-C Gabapentin (Neurontin) cap 100 mg 100 mg Oral TID PRN Alan Lozano PA-C glucagon (Glucagen) inj 1 mg 1 mg Intramuscular PRN Alan Lozano PA-C Glucose (Glutose 15) 40 % gel 15 g of glucose 15 g of glucose Oral PRN Alan Lozano PA-C Glucose (Glutose 15) 40 % gel 30 g of glucose 30 g of glucose Oral PRN Alan Lozano PA-C glucose chew tab 16 g 16 g Oral PRN Alan Lozano PA-C hEParin inj 7,500 Units 7,500 Units Subcutaneous Q8H Alan Lozano PA-C hydrOXYzine HCl tab 50 mg 50 mg Oral Q8H PRN Alan Lozano PA-C insulin aspart (NovoLOG) inj Subcutaneous With Meals and HS Alan Lozano PA-C Insulin Glargine (Lantus) inj 10 Units 10 Units Subcutaneous HS Alan Lozano PA-C levothyroxine (Levoxyl) tab 175 mcg 175 mcg Oral at 0630 Alan Lozano PA-C melatonin tab 3 mg 3 mg Oral HS PRN Alan Lozano PA-C omeprazole (PriLOSEC) cap 20 mg 20 mg Oral Before breakfast Alan Lozano PA-C Simvastatin (Zocor) tab 20 mg 20 mg Oral Daily(AM) Alan Lozano PA-C sodium chloride 0.9 % flush/inj 3 mL 3 mL IV Push PRN Alan Lozano PA-C trimethobenzamide (Tigan) inj 100 mg 100 mg Intramuscular TID PRN Kali Mooney MD OBJECTIVE: Most Recent Vital Signs: Intake/Output Summary (Last 24 hours) at 10/06/2023 1349 Last data filed at 10/06/2023 1047 Gross per 24 hour Intake 200.61 ml Output -- Net 200.61 ml Vital Signs last 24 Hours: Systolic BP: Most Recent Systolic BP Av mmHg Min: 123 mmHg Max: 140 mmHg Temperature: Most Recent Temperature Av.4 C Min: 36.28 C Max: 36.78 C Pulse: Pulse Av.8 Min: 56 Max: 65 Respirations: Resp Av Min: 20 Max: 20 SpO2: SpO2 Av.7 % Min: 92 % Max: 100 % PHYSICAL EXAM: GENERAL: Alert, in no acute distress. On oxygen nasal cannula EYES: PERRL, conjunctivae anicteric. ENT: Mucous membranes moist, oropharynx clear. NECK: Supple, no JVD. LYMPH: No cervical or supraclavicular lymphadenopathy. LUNGS: Clear to auscultation bilaterally, no respiratory distress. CARDIAC: Regular rate and rhythm, normal S1/S2, no murmurs, rubs, or gallops. ABDOMEN: Soft, non-tender, non-distended, bowel sounds present. EXT/MSK: No clubbing, cyanosis, or edema. Chronic ulcer on the right calcaneus, foot wrapped SKIN: No rash, no jaundice. NEURO: No tremor, no asterixis. LABS: Lab Results Component Value Date/Time BUN - [facility] 105 (H) 10/06/2023 04:23 AM BUN - [facility] 109 (H) 10/05/2023 06:05 AM BUN - [facility] 108 (H) 10/04/2023 04:41 AM BUN - [facility] 103 (H) 10/03/2023 04:36 PM BUN - [facility] 111 (H) 10/01/2023 05:47 AM BUN - [facility] 10 11/19/2018 09:00 AM BUN - [facility] 19 01/22/2018 09:45 AM BUN - [facility] 39 (H) 02/27/2017 08:30 AM BUN - [facility] 9 (L) 2001 01:52 PM BUN - [facility] 9 (L) 01/14/2001 01:16 PM Lab Results Component Value Date/Time CREATININE - [facility] 3.1 (H) 10/06/2023 04:23 AM CREATININE - [facility] 3.4 (H) 10/05/2023 06:05 AM CREATININE - [facility] 3.4 (H) 10/04/2023 04:41 AM CREATININE - [facility] 3.5 (H) 10/03/2023 04:36 PM CREATININE - [facility] 4.0 (H) 10/01/2023 05:47 AM CREATININE - [facility] 0.9 11/19/2018 09:00 AM [...] Results Component Value Date/Time POTASSIUM - [facility] 3.4 (L) 10/06/2023 04:23 AM POTASSIUM - [facility] 3.6 10/05/2023 06:05 AM POTASSIUM - [facility] 3.6 10/04/2023 04:41 AM POTASSIUM - [facility] 4.1 11/19/2018 09:00 AM POTASSIUM - [facility] 5.1 01/22/2018 09:45 AM POTASSIUM - [facility] 5.0 02/27/2017 08:30 AM Lab Results Component Value Date/Time HGB 7.2 (L) 10/06/2023 04:23 AM HGB 7.8 (L) 10/05/2023 06:05 AM HGB 7.6 (L) 10/04/2023 04:41 AM HGB 9.1 (L) 10/03/2023 04:36 PM HGB 9.6 (L) 10/03/2023 04:36 PM HGB 6.7 (L) 09/28/2023 04:26 AM HGB 13.2 12/03/2018 09:22 AM HGB 13.1 [...] Results Component Value Date/Time PHOSPHORUS - [facility] 4.6 08/21/2023 05:10 AM IMPRESSION: This is a 63-year-old female with history of hypertension, type 2 diabetes, obesity, hypothyroidism, CKD stage 3 baseline creatinine of 2, right calcaneal chronic ulcer with osteomyelitisand CHF with preserved EF was admitted with respiratory failure and found have multifocal pneumonia. She is being evaluated for acute kidney injury on CKD. Plan; Acute kidney injury on CKD: Etiology is likely ischemic ATN in setting of multifocal pneumonia and chronic osteomyelitis of the right foot. Baseline creatinine around 2. Creatinine of 3.1 today. Electrolytes are stable. -will continue holding torsemide and metolazone. -renally dose medications for current GFR. -monitor input output. -will likely restart torsemide 100 mg daily on Sunday 2. Multifocal pneumonia. Patient is on oxygen nasal cannula and antibiotics. Patient likely to be discharged tomorrow to rehab Appreciate consult; will follow with you. This note was generated with the help of voice recognition software. Please excuse for errors. * Ayana Summers MD - 10/06/2023 8:04 AM EDT Images from the original note were not included. [facility] [id number] INTERVAL HISTORY: 63-year-old female with history of hypertension, type 2 diabetes, obesity, hypothyroidism, CKD stage 3 baseline creatinine of 2, right calcaneal chronic ulcer with osteomyelitis and CHF with preserved EF was admitted with respiratory failure and found have multifocal pneumonin, nelson on CKD. ID recs placed for IV meropenem Patient with midline Remains on 4L from baseline 2L Subjective: Sinus headache, dryness, productive loose junky cough, no increased SOB, no chest pain, no fevers no chills overnight. She states her ankle is the least of her worries at this time. Feels like she is ready for discharge by tomorrow. I discussed wanting to get some nephro input andchecking her blood count again in the morning. Patient agreeable with plan of care. Objective Physical Exam Most Recent Vital Signs: BP: 135 mmHg/58 mmHg (10/06/23 113) Pulse: 56 (10/06/23 113) Resp: 20 (10/06/231135) Temp: 36.28 C (10/06/231135) Temp Summary: Temp Min: 36.3 C (97.3 F) Max: 36.8 C (98.2 F) SpO2: 92 % (10/06/23 113) O2 flow rate: 4 L/MIN (10/06/23 0310) Supplemental O2 Delivery: Nasal Cannula (10/06/231135) BP 135/58 | Pulse 56 | Temp 36.3 C (97.3 F) (Temporal Artery) | Resp 20 | Ht 1.575 m (5' 2") | Wt 128.5 kg (283 lb 4.7 oz) | LMP 11/22/2002 | SpO2 92% | BMI 51.81 kg/m | BSA 2.37 m Vitals reviewed over last 24 hours General: upbeat, pleasant female, says she is doing so much better HEEN: ophx clear, no nasal exudate NECK: no stridor, no JVD PULM: coarse rhonchi, scattered exp wheezes, no crackles CVS: RRR ABD: soft, NT, ND +BS EXT: WWP, 2+ peripheral edema,heel wound dressing c/d/i Neuro:alert and oriented x3, CN 2-12 grossly intact Psych: normal mood and affect Peripheral Line Right Hand 22 Gauge (Active) Number of days: 3 Midline Catheter Left;Upper Arm (Active) Number of days: 3 STUDIES: Encounter Orders Labs and other studies reviewed with pertinent findings noted below: Recent Results (from the past 24 hour(s)) GLUCOSE METER, POINT OF CARE Collection Time: 10/05/23 4:29 PM Result Value Ref Range Glucose Meter 158 (H) 70 - 120 mg/dL GLUCOSE METER, POINT OF CARE Collection Time: 10/05/23 9:26 PM Result Value Ref Range Glucose Meter 219 (H) 70 - 120 mg/dL CBC Collection Time: 10/06/23 4:23 AM Result Value Ref Range WBC 13.13 (H) 4.00 - 10.80 K/uL RBC 2.60 3.85 - 5.15 M/uL HGB 7.2 (L) 12.0 - 15.3 g/dL HCT 22.6 (L) 36.0 - 45.2 % MCV 86.9 81.5 - 97.5 fL MCH 27.7 27.0 - 34.0 pg MCHC 31.9 32.0 - 36.0 g/dL RDW 14.9 11.5 - 15.5 % PLT 276 140 - 400 K/uL MPV 11.6 6.6 - 11.1 fL nRBCs 0 <=0 /100 WBCs BASIC METABOLIC PANEL Collection Time: 10/06/23 4:23 AM Result Value Ref Range BUN 105 (H) 6 - 20 mg/dL Creatinine 3.1 (H) 0.5 - 1.0 mg/dL Estimated Glomerular Filtration Rate 16 (L) >=60 mL/min Sodium 131 (L) 135 - 146 mmol/L Potassium 3.4 (L) 3.5 - 5.1 mmol/L Chloride 92 (L) 98 - 107 mmol/L CO2 25 22 - 32 mmol/L Anion Gap 14 7 - 15 mmol/L Glucose 162 (H) 70 - 120 mg/dL Calcium 8.4 8.4 - 10.2 mg/dL PROCALCITONIN Collection Time: 10/06/23 4:23 AM Result Value Ref Range Procalcitonin 0.98 (H) <0.10 ng/mL ERYTHROCYTE SEDIMENTATION RATE (ESR) Collection Time: 10/06/23 4:23 AM Result Value Ref Range ESR 51 (H) <30 mm/hour CRP (INFLAMMATORY MARKER) Collection Time: 10/06/23 4:23 AM Result Value Ref Range CRP (Inflammatory Marker) 139 (H) <=5 mg/L MAGNESIUM Collection Time: 10/06/23 4:23 AM Result Value Ref Range Magnesium 1.8 1.5 - 2.6 mg/dL BNP, NT-PRO Collection Time: 10/06/23 4:23 AM Result Value Ref Range BNP, NT-Pro 5,891 (H) <300 pg/mL GLUCOSE METER, POINT OF CARE Collection Time: 10/06/23 8:16 AM Result Value Ref Range Glucose Meter 112 70 - 120 mg/dL GLUCOSE METER, POINT OF CARE Collection Time: 10/06/23 11:36 AM Result Value Ref Range Glucose Meter 150 (H) 70 - 120 mg/dL } Recent Cultures (2 Weeks) 10/05/2023 10/03/2023 10/03/2023 10/02/2023 1:52 PM 8:29 PM 8:26 PM 11:25 AM STAIN DESCRIPTION Purulent specimen, >25 neutrophils/low power microscopic field. -- -- No squamous epithelial cells seen Moderate Polymorphonuclear leukocytes No polymorphonuclear leukocytes seen Rare Yeast Moderate Gram positive cocci CULTURE GROWTH -- -- -- Many Pseudomonas aeruginosa BLOOD CULTURE GROWTH -- No growth to date No growth to date -- Assessment and Plan IMPRESSION : Principal Problem: Severe sepsis with acute organ dysfunction (HCC) Active Problems: Type 2 diabetes mellitus, with long-term current use of insulin ([facility]) Hypothyroid Acute on chronic heart failure with preserved ejection fraction (HFpEF) ([facility]) Moderate pulmonary hypertension ([facility]) Chronic kidney disease, stage IV (severe) ([facility]) Morbid obesity ([facility]) HCAP (healthcare-associated pneumonia) Demand ischemia ([facility]) Hyponatremia Rhinovirus infection Acute osteomyelitis of calcaneum, right (HCC) Acute on chronic respiratory failure with hypoxia (HCC) Acute renal failure superimposed on stage 4 chronic kidney disease (HCC) Anemia of chronic renal failure, stage 4 (severe) (HCC) Resolved Problems: * No resolved hospital problems. * DIFFERENTIAL AND PLAN: Acute on chronic hypoxic respiratory failure, HCAP, rhinovirus infection - continue current abx - flutter, incentive spirometry - OOB to chair - inhaled bronchodilators - am CXR reviewed no significant pleural effusions - abx as is for osteo Right heel osteo - appreciate ID - wound care recs - midline in place will need to be exchanged 21 days - Meropenem 500 mg iv q12 hours (adjust for renal function) - pseudomonas NELSON on CKD4 - appreciate nephrology input - avoid nephrotoxins - resume diuretic on Sunday - no picc midline DM2 - basal bolus - monitor glucose Other home medications as directed. Benzonatate (Tessalon Perles) cap 100 mg guaiFENesin (Robitussin) oral liquid 200 mg Polyethylene Glycol 3350 (Miralax) oral powder 17 g AND senna-docusate (Senokot-S) 1 Tablet AND Bisacodyl (Dulcolax) tab 5 mg AND Bisacodyl (Dulcolax) supp 10 mg Cetirizine (ZyrTEC) oral solution 5 mg meropenem in NSS (Merrem) ivpb 500 mg oxygen GAS Menthol ([place]) cough drop 1 Lozenge phenol (chlorASEPTIC) spray 3 [place] Acetaminophen (Tylenol) tab 650 mg albuterol (VENTOLIN HFA/PROVENTIL HFA) inhaler amitriptyline (Elavil) tab 100 mg amLODIPine (Norvasc) tab 10 mg dextrose 50% inj 25 mL dextrose 50% inj 50 mL doxycycline tab 100 mg fluticasone (Flonase) nasal inhaler 1 [place] folic acid tab 1 mg Gabapentin (Neurontin) cap 100 mg glucagon (Glucagen) inj 1 mg Glucose (Glutose 15) 40 % gel 15 g of glucose Glucose (Glutose 15) 40 % gel 30 g of glucose glucose chew tab 16 g hEParin inj 7,500 Units hydrOXYzine HCl tab 50 mg insulin aspart (NovoLOG) inj Insulin Glargine (Lantus) inj 10 Units levothyroxine (Levoxyl) tab 175 mcg melatonin tab 3 mg omeprazole (PriLOSEC) cap 20 mg Simvastatin (Zocor) tab 20 mg sodium chloride 0.9 % flush/inj 3 mL trimethobenzamide (Tigan) inj 100 mg Orders Placed This Encounter Procedures Heart Healthy Consistent Carbohydrate Diet : Sodium: 2 gm --- Number of Choices: 4 (60 grams) --- Fluid Restriction (ml): None PHARMACOLOGIC VTE PROPHYLAXIS: hEParin CODE STATUS: Full Code EXPECTED DISCHARGE DATE: 10/07/2023 I spent a total of 55 minutes coordinating, documenting, and providing care for this patient excluding time spent in the performance of separately billed services. * Dante Contreras DO - 10/05/2023 11:15 AM EDT Images from the original note were not included. [facility] [id number]/W INTERVAL HISTORY: Patient reports that she feels her breathing is definitely better than yesterday. Feels as though she was not as congested. She does state that she was achy and sore all over Objective Physical Exam Most Recent Vital Signs: BP: 124 mmHg/54 mmHg (10/05/23 105) Pulse: 63 (10/05/23 1059) Resp: 20 (10/05/23 105) Temp: 36.78 C (10/05/23 1059) Temp Summary: Temp Min: 36.1 C (97 F) Max: 36.8 C (98.2 F) SpO2: 95 % (10/05/23 1059) O2 flow rate: 4 L/MIN (10/05/23 1059) Supplemental O2 Delivery: Nasal Cannula (10/05/23 105) Constitutional: (+) ill appearing CV: normal rate, normal rhythm Chest: normal respiratory effort, decreased breath sounds, coarse rhonchi throughout, few scatteredwheezes Abdomen: soft, no tenderness, obese Extremities: no edema, examined right heel wound, probes to bone. Deep ulceration Neuro: alert, oriented to person, place, and time, global weakness Peripheral Line Right Hand 22 Gauge (Active) Number of days: 2 Midline Catheter Left;Upper Arm (Active) Number of days: 2 STUDIES: Encounter Orders Labs and other studies reviewed with pertinent findings noted below: Blood culture sterile to date MRSA screen negative Creatinine 3.4 unchanged Glucoses reviewed, overall fair control Hemoglobin stable 7.8 WBCs 14.1, improved Assessment and Plan IMPRESSION : Principal Problem: Severe sepsis with acute organ dysfunction (HCC) Active Problems: Type 2 diabetes mellitus, with long-term current use of insulin (HCC) Hypothyroid Acute on chronic heart failure with preserved ejection fraction (HFpEF) ([facility]) Moderate pulmonary hypertension (HCC) Chronic kidney disease, stage IV (severe) (HCC) Morbid obesity (HCC) HCAP (healthcare-associated pneumonia) Demand ischemia (HCC) Hyponatremia Rhinovirus infection Acute osteomyelitis of calcaneum, right (HCC) Acute on chronic respiratory failure with hypoxia (HCC) Acute renal failure superimposed on stage 4 chronic kidney disease (HCC) Anemia of chronic renal failure, stage 4 (severe) ([facility]) Resolved Problems: * No resolved hospital problems. * DIFFERENTIAL AND PLAN: Patient with acute sepsis due to viral and possible secondary bacterial pneumonia he was evidenced by acute respiratory failure on chronic respiratory failure as well as acute on chronic renal failure. Patient was respiratory status has improving. Continue to titrate oxygen to her baseline 2 L as able Continue current antibiotic regimen Reviewed orthopedic consultation. Noted patient requesting to follow up with her outpatient smash piecer Dr. Self. Conversation with the patient. She confirms that she would not want any surgical intervention here and prefers to follow up with her outpatient smash piecer. Communication to Infectious Disease, asking for recommendations on prolonged IV antibiotics until patient can be seen by outpatient Podiatry. Patient already has midline placed prior to admission in anticipation of ongoing IV antibiotics. Continue to monitor renal function, Nephrology consultation noted. Diuretics on hold Continue to monitor glucose, sliding scale for additional management of glucose Continue Wound Care, discussed dressings with Wound Care nurse PHARMACOLOGIC VTE PROPHYLAXIS: hEParin CODE STATUS: Full Code EXPECTED DISCHARGE DATE: 10/06/2023 * Dante Contreras DO - 10/04/2023 12:42 PM EDT Images from the original note were not included. [facility] [id number]/W INTERVAL HISTORY: Patient reports feeling better compared to yesterday. Breathing is a bit easier. Objective Physical Exam Most Recent Vital Signs: BP: 144 mmHg/65 mmHg (10/04/23 121) Pulse: 67 (10/04/231215) Resp: 20 (10/04/231215) Temp: 36.39 C (10/04/231215) Temp Summary: Temp Min: 36.3 C (97.3 F) Max: 37.6 C (99.7 F) SpO2: 93 % (10/04/231215) O2 flow rate: 4 L/MIN (10/04/231215) Supplemental O2 Delivery: Nasal Cannula (10/04/231215) Constitutional: (+) chronically ill CV: normal rate, normal rhythm Chest: normal respiratory effort, decreased breath sounds, coarse crackles Abdomen: soft, no tenderness, obese Extremities: +1-2 pitting edema, right foot in offloading cushion. Neuro: alert, oriented to person, place, and time, generalized weakness Peripheral Line Right Hand 22 Gauge (Active) Number of days: 1 Midline Catheter Left;Upper Arm (Active) Number of days: 1 STUDIES: Encounter Orders Labs and other studies reviewed with pertinent findings noted below: Sodium 131 Creatinine 3.4 Glucose 179 CBC reviewed, WBCs 15.1, hemoglobin 7.6 Assessment and Plan IMPRESSION : Principal Problem: Severe sepsis with acute organ dysfunction (HCC) Active Problems: Type 2 diabetes mellitus, with long-term current use of insulin (HCC) Hypothyroid Acute on chronic heart failure with preserved ejection fraction (HFpEF) ([facility]) Moderate pulmonary hypertension (HCC) Chronic kidney disease, stage IV (severe) ([facility]) Morbid obesity (HCC) HCAP (healthcare-associated pneumonia) Demand ischemia (HCC) Hyponatremia Rhinovirus infection Acute osteomyelitis of calcaneum, right (HCC) Acute on chronic respiratory failure with hypoxia (HCC) Acute renal failure superimposed on stage 4 chronic kidney disease (HCC) Anemia of chronic renal failure, stage 4 (severe) ([facility]) Resolved Problems: * No resolved hospital problems. * DIFFERENTIAL AND PLAN: Patient was acute hypoxic respiratory failure possibly due to multiple issues including rhinovirus pneumonia versus bacterial pneumonia versus decompensated systolic heart failure in the setting of demand ischemia. Also concern for ongoing osteomyelitis of the heel. Patient was critically ill requiring high- flow oxygen requires hospital level care, specialty consultation and IV medications. Continue with current antibiotic regimen, await Infectious Disease input MRI of the heel to evaluate for persistent osteomyelitis Nephrology consultation for acute on chronic renal failure Continue to monitor electrolytes and renal function Hemoglobin is about at baseline in the setting of her chronic renal failure Titrate oxygen down as able, she was off high-flow at this time and onto nasal cannula Reviewed Wound Care consultation and plans Communication with care management, patient was bed hold at [facility] Continue diuresis through today. Patient's weight is actually decreased from previous hospitalization. Renal function has improved with diuresis. Continue to monitor. Update: Communication with Infectious Disease, recommendations noted and orders placed MRI of the right heel report reviewed, recurrent osteomyelitis, sinus tract, ruptured Achilles tendon and plantar fascia. Consult Orthopedics for further evaluation and consideration of surgical intervention. PHARMACOLOGIC VTE PROPHYLAXIS: hEParin CODE STATUS: Full Code EXPECTED DISCHARGE DATE: 10/06/2023 I spent a total of 52 minutes coordinating, documenting, and providing care for this patient excluding time spent in the performance of separately billed services. * Thao Larson RN - 10/03/2023 11:50 PM EDT Nursing Critical Care Response Note [facility] [id number] Name: Alexandria Smith Date: 10/03/2023 Time: 11:50 PM Event Location: [facility], Unit Area: 5a In the role of the Critical Response Nurse I was involved in the care of this patient. Method of notification to the critical care response nurse: Unit call/request for assistance Reason for notification or follow up: Vascular access Observations/Interventions/Assessment: Placed PIV Outcome/Plan N/A documented in this encounter H&P Notes * Kali Mooney MD - 10/03/2023 7:57 PM EDT Images from the original note were not included. [facility] PRESENTING PROBLEM: respiratory failure HPI: This is a 63 y woman with below pmh that includes morbid obesity, stage 3-4 ckd, HTN, dm2, fibromyalgia, hypothyroid, anemia of chronic disease, and chf with preserved EF. She was admitted here 1.5 months ago with heart failure, from a rehab [facility]. She was also treated for right heel osteomyelitis with meropenem, and according to patient this treatment ended weeks ago. On last Sunday,she received blood transfusion for anemia, and she initially felt ok but several days later developed fever, cough and worsening dyspnea; she was at infusion center for midline placement to continue meropenem treatment and was so short of breath that she was sent to ED. Patient was previously on 2Loxygen but needed to be placed on high flow o2. She states that she has been compliant with fluid restriction and has used her diuretics. Overall she is a poor historian, and is unclear about her antibiotic treatment, fevers, and medications. Subjective Patient's past history, medications, and allergies were reviewed. Objective Physical Exam Most Recent Vital Signs: BP: 120 mmHg/62 mmHg (10/03/231899) Pulse: 80 (10/03/231899) Resp: 22 (10/03/231899) Temp: 37.33 C (10/03/231904) Temp Summary: Temp Min: 37.1 C (98.8 F) Max: 37.3 C (99.2 F) SpO2: 93 % (10/03/231899) O2 flow rate: 35 L/MIN (10/03/231811) Supplemental O2 Delivery: HFNC (10/03/231811) Constitutional: chronically ill appearing middle aged woman resting in bed, on high lfow 02 HEENT: normal: normocephalic, atraumatic Eyes: sclera and conjunctiva normal Neck: supple CV: normal rate Chest: normal respiratory effort, coarse breath sounds bilaterally Abdomen: soft, bowel sounds normal, no tenderness Extremities: 3+ edema bilaterally Skin: warm, dry, right foot in fresh bandages. Neuro: alert and oriented x2, vague historian, generalized weakness but otherwise non-focal STUDIES: Encounter Orders Labs and other studies reviewed with pertinent findings noted below: Results for orders placed or performed during the hospital encounter of 10/03/23 COMPREHENSIVE METABOLIC PANEL Result Value Ref Range BUN 103 (H) 6 - 20 mg/dL Creatinine 3.5 (H) 0.5 - 1.0 mg/dL Estimated Glomerular Filtration Rate 14 (L) >=60 mL/min Sodium 130 (L) 135 - 146 mmol/L Potassium 4.1 3.5 - 5.1 mmol/L Chloride 90 (L) 98 - 107 mmol/L CO2 22 22 - 32 mmol/L Anion Gap 18 (H) 7 - 15 mmol/L Glucose 219 (H) 70 - 120 mg/dL Albumin 2.6 (L) 3.8 - 5.0 g/dL AST 39 (H) 10 - 35 U/L Alkaline Phosphatase 343 (H) 35 - 130 U/L Bilirubin, Total 0.4 <=1.2 mg/dL Calcium 8.9 8.4 - 10.2 mg/dL Protein 7.1 6.0 - 8.3 g/dL ALT 17 10 - 35 U/L BNP, NT-PRO Result Value Ref Range BNP, NT-Pro 10,003 (H) <300 pg/mL TROPONIN T, HIGH SENSITIVITY Result Value Ref Range Troponin T, High Sensitivity 191 (HH) <=14 ng/L PT INR Result Value Ref Range Prothrombin Time 17.8 (H) 11.6 - 15.2 seconds INR 1.5 (H) 0.8 - 1.2 RESPIRATORY PATHOGEN PANEL, PCR Result Value Ref Range Adenovirus by PCR Negative Negative Coronavirus 229E by PCR Negative Negative Coronavirus HKU1 by PCR Negative Negative Coronavirus NL63 by PCR Negative Negative Coronavirus OC43 by PCR Negative Negative Coronavirus SARS-CoV-2 by PCR Negative Negative Human Metapneumovirus by PCR Negative Negative Rhinovirus/Enterovirus by PCR Positive (A) Negative Influenza A Virus by PCR Negative [...] Negative Bordetella parapertussis by PCR Negative Negative CBC Result Value Ref Range WBC 18.21 (H) 4.00 - 10.80 K/uL RBC 3.16 3.85 - 5.15 M/uL HGB 9.1 (L) 12.0 - 15.3 g/dL HCT 27.8 (L) 36.0 - 45.2 % MCV 88.0 81.5 - 97.5 fL MCH 28.8 27.0 - 34.0 pg MCHC 32.7 32.0 - 36.0 g/dL RDW 15.1 11.5 - 15.5 % PLT 306 140 - 400 K/uL MPV 10.8 6.6 - 11.1 fL nRBCs 0 <=0 /100 WBCs DIFFERENTIAL, AUTOMATED Result Value Ref Range WBC 18.21 (H) 4.00 - 10.80 K/uL Neutrophils % 88.1 (H) 40.0 - 75.0 % Lymphocytes % 6.0 (L) 18.0 - 42.0 % Monocytes % 4.5 1.0 - 11.0 % Eosinophils % 0.3 0.0 - 6.0 % Basophils % 0.3 0.0 - 2.0 % Immature Granulocytes % 0.8 0.0 - 2.0 % Absolute Neutrophils 16.05 (H) 1.80 - 7.70 K/uL Absolute Lymphocytes 1.09 1.00 - 4.80 K/ul Absolute Monocytes 0.82 0.00 - 1.10 K/uL Absolute Eosinophils 0.05 0.00 - 0.70 K/uL Absolute Basophils 0.05 0.00 - 0.20 K/uL Absolute Immature Granulocytes 0.15 0.00 - 0.20 K/uL BLOOD GAS, VENOUS Result Value Ref Range Temperature 37.0 C pH, Venous 7.381 7.320 - 7.430 units pCO2, Venous 42.1 40.0 - 60.0 mmHg pO2, Venous 33.8 25.0 - 50.0 mmHg Base Excess, Venous -0.2 -2.0 - 2.0 mmol/L HGB 9.6 (L) 12.0 - 15.3 g/dL Oxyhemoglobin, Venous 53.5 40.0 - 85.0 % total Hgb Carboxyhemoglobin, Whole Blood 1.7 (H) <=1.5 % total Hgb Methemoglobin, Whole Blood 0.4 <=1.5 % total Hgb Reduced Hemoglobin, Venous 44.4 % total Hgb O2 Content, Venous 7.2 7.0 - 18.0 %vol Bicarbonate, Whole Blood 24.4 23.0 - 31.0 mmol/L TROPONIN T, HIGH SENSITIVITY Result Value Ref Range Troponin T, High Sensitivity 184 (HH) <=14 ng/L XR CHEST 1 VIEW Final Result PROCEDURE INFORMATION: Exam: XR Chest Exam date and time: 10/03/2023 3:59 PM Age: 63 years old Clinical indication: Shortness of breath; Additional info: SOB TECHNIQUE: Imaging protocol: Radiologic exam of the chest. Views: 1 view. COMPARISON: DX XR CHEST 1 VIEW 08/19/2023 5:58 PM FINDINGS: Lungs: Dense consolidation in the right lower lobe and patchy infiltrates in the left lower lobe consistent with multifocal pneumonia. Pleural spaces: Unremarkable. No pleural effusion. No pneumothorax. Heart/Mediastinum: Unremarkable. No cardiomegaly. Bones/joints: Unremarkable. IMPRESSION IMPRESSION: Dense consolidation in the right lower lobe and patchy infiltrates in the left lower lobe consistent with multifocal pneumonia. THIS DOCUMENT HAS BEEN ELECTRONICALLY SIGNED BY FREEDOM POOL MD I personally reviewed her cxr and she appears to have new infiltrates bilaterally, most prominent in rll I personally reviewed her EKG which again shows rbbb with normal rate. P waves are difficult to seebut rhythm appears regular. Assessment and Plan IMPRESSION: Principal Problem: Acute on chronic heart failure with preserved ejection fraction (HFpEF) ([facility]) Active Problems: Type 2 diabetes mellitus, with long-term current use of insulin ([facility]) Hypothyroid Chronic kidney disease, stage IV (severe) ([facility]) HCAP (healthcare-associated pneumonia) Fibromyalgia Gastroesophageal reflux disease Osteomyelitis of right foot ([facility]) Demand ischemia ([facility] [facility]) Hyponatremia Rhinovirus infection Acute on chronic respiratory failure with hypoxia ([facility]) Resolved Problems: * No resolved hospital problems. * DIFFERENTIAL AND PLAN: Respiratory failure is likely multifactorial. There is acute on chronic chf and she will need further diuresis as was done in prior admission. Also, she may have pneumonia and should be treated as health care associated pneumonia. The positive respiratory viral reading is likely residual from August. -admit to monitored bed. -supplemental o2 as needed -lasix 100 iv bid and metolazone 5mg -for pneumonia, resume meropenem (stopped it probably in mid-September) and add azithromycin -meropenem for osteomyelitis -consult ID for assistance -regarding hyponatremia - likely from respiratory infection/fluid overload; treat respiratory illness and diuretics. -insulin for dm2 -follow cultures, follow lytes -continue pain medications for fibromyalgia PHARMACOLOGIC VTE PROPHYLAXIS:hEParin CODE STATUS: Full Code EXPECTED DISCHARGE DATE: 1-2 days or more documented in this encounter Consult Notes * Nathaniel Saba, PT - 10/05/2023 2:00 PM EDTAssociated Order(s): ADULT PHYSICAL THERAPY CONSULT IP; ADULT PHYSICAL THERAPY CONSULT IP GENERAL EVALUATION - Physical Therapy [address] [id number] Name: Alexandria Smith [facility] Date: 10/05/2023 Time: 1399 Alexandria Smith is a/an 63 year old female. Patient Status: Inpatient Insurance: Payor: [email or web address] MEDICARE ADVANTAGE Plan: [employer] MEDICARE ADVANTAGE PPO Product Type: *No Product type* Payor: Lexdir [place] Plan: Lexdir [facility] Product Type: HMO Patient Seen: at bedside, nursing cleared patient for therapy Patient Identified By: Name, ID Band and Date Diagnosis: Gait dysfunction, weakness, Acute on chronic heart failure with preserved ejection fraction, osteomyelitis R foot (10/05/231399) Status of treatment: Evaluation completed (10/05/231399) Orders: PT evaluation and treatment (10/05/231399) Weight Bearing Status: Weight bearing as tolerated;RUE;LUE;RLE;LLE (WBAT R LE w/ heel off loading shoe R LE; NWB when out of heel off loading shoe) (10/05/231399) Precautions: Falls;Safety (10/05/231399) Total Treatment Time--free text: 44 minutes (10/05/231399) [place] text message received from Srikanth Young PA-C from orthopedics that the pt maybe WBAT R LE w/ heel off loading shoe R LE; this message was relayed to Dr. Contreras. HPI: Per chart review: "This is a 63 y woman with below pmh that includes morbid obesity, stage 3-4ckd, HTN, dm2, fibromyalgia, hypothyroid, anemia of chronic disease, and chf with preserved EF. Shewas admitted here 1.5 months ago with heart failure, from a rehab [facility]. She was also treated for right heel osteomyelitis with meropenem, and according to patient this treatment ended weeks ago. On last Sunday, she received blood transfusion for anemia, and she initially felt ok but severaldays later developed fever, cough and worsening dyspnea; she was at infusion center for midline placement to continue meropenem treatment and was so short of breath that she was sent to ED. Patient was previously on 2L oxygen but needed to be placed on high flow o2. She states that she has been compliant with fluid restriction and has used her diuretics. Overall she is a poor historian, and is unclear about her antibiotic treatment, fevers, and medications. " Past Medical History: Past Medical History: Diagnosis [...] performed by Lynnette Rasmussen DPM at OR [facility] INFORMATION wisdom teeth removed INJECTION CERVICAL/THORACIC 06/26/2014 INJECTION SPINE LUMBAR CERVICAL OR THORACIC performed by Héctor Rios, DO at OR [facility] INJECTION CERVICAL/THORACIC 07/10/2014 INJECTION SPINE LUMBAR CERVICAL OR THORACIC performed by Héctor Gomezs, DO at OR [facility] KNEE ARTHROSCOPY/REPAIR LIGAMENT 1998 Knee Scope,Aid Ant Cruciate Repair x 2 Subjective: Pt expressed willingness to participate in PT consult. Social History/Disposition Lives with: Alone (10/05/23 1400) Assistance available: Yes (friend intermittently and paid caregivers prior to recent admission to [facility]) (10/05/23 1400) Dwelling type: Apartment (10/05/23 1400) Entry steps: 3 (1+1+1) (10/05/23 1400) Inside steps: None (10/05/231399) Bedroom location: 1st floor (10/05/231399) Bath location: 1st floor full bath (10/05/231399) Prior Level of Function Reported by: Patient (10/05/231399) Ambulation: Ambulatory with device (prior to recent admission to SNF for rehab) (10/05/231399) Ambulatory Device: Rolling walker (10/05/231399) Devices at home: Rolling walker;Other - describe;Grab bars (oxygen) (10/05/231399) Pt reports that recently at SNF she has required assist of 2 to pivot bed <> chair and at times a Keegan lift Observations Consciousness: Alert (10/05/231399) Orientation: Oriented times 4 (10/05/231399) Psychosocial: Patient can communicate basic needs;Patient can converse in a social setting (10/05/231399) Other Findings: Yes (10/05/231399) Findings: Light touch sensation;Coordination;Tone (10/05/231399) Light Touch Sensation Results: Intact;LLE;RLE (10/05/231399) Coordination Results: Intact;LLE;RLE (10/05/231399) Tone Results: Intact;LLE;RLE (10/05/231399) Sitting Posture: Forward head;Rounded shoulders (10/05/231399) Standing Posture: Forward head;Rounded shoulders (10/05/231399) Pain: No complaints of pain Range of Motion Range of Motion: WFL, except (L ankle DF neutral. See OT for B UE) (10/05/231399) Strength Assessment Strength Assessment: Deficits noted (see OT for B UE) (10/05/231399) WNL, except: LLE;RLE (10/05/231399) LLE: 3-/5;Hip;4-/5;Knee;Ankle (10/05/231399) RLE: 3-/5;Hip;4-/5;Knee;Ankle (10/05/231399) P.T. Bed Mobility Roll (Right): Minimal Assistance (10/05/231399) Roll (Left): Minimal Assistance (10/05/231399) Supine-Sit: Minimal Assistance (10/05/231399) Sit-Supine: Moderate Assistance (10/05/231399) Transfers Sit-Stand: Moderate Assistance (mod A 2) (10/05/231399) Stand-Sit: Maximal Assistance (10/05/231399) Ambulation: Distance ambulated (feet): 2 feet laterally to the right Assistive Device: Rolling walker, heel off loading shoe R foot, O2 4L/min nc Assist: Moderate Assistance 1 Gait Characteristics: Decreased speed, Decreased step length, Unsteady, Increased trunk sway, fatigues easily, not safe to transfer or amb w/o assistance. Balance Sit (Static): Good (10/05/231399) Sit (Dynamic): Good (10/05/231399) Stand (Static): Poor (10/05/231399) Stand (Dynamic): Poor (10/05/231399) Patient and or Family Goal(s): to get well and to return home Patient Education Review of Precautions: Safety;Fall;Weight Bearing Status (WBAT R LE w/ heel off loading shoe R LE (NWB R LE when out of heel off loading shoe)) (10/05/231399) Safety Awareness: Patient verbalizes insight of current deficits;Patient demonstrates carryover of insight during functional tasks;Patient can communicate basic needs;Needs cueing supervision (10/05/231399) Preferred learning method: Combination (10/05/231399) Barriers to learning: Medical Status (10/05/231399) Method of Education: Verbalized to patient;Patient demonstrated task (10/05/231399) Topic of Education: Weight bearing restrictions, Safety with mobility, Goals/plan of care, Use of assistive device, Fall prevention, and WBAT R LE w/ heel off loading shoe R LE and NWB R LE when out of off loading shoe Method of Education: Verbal discussion and explanation provided to pt: verbalized understanding andor agreement of this information Treatment Provided: Therapeutic Activities 25 minutes: bed mobility training transfer training education regarding weigh bearing status: WBAT R LE w/ heel off loading shoe R LE and NWB R LE whenout of heel off loading shoe Balance activity to improve strength, endurance, sitting tolerance/safety, standing tolerance/safety and functional mobility: static sitting EOB supervision 1 to modified independent; static standingat rolling walker w/ mod A 1 while wearing heel off loading shoe R LE; side stepping to the R w/ rolling walker, heel off loading shoe R LE and mod A 1 Evaluation Moderate Complexity 19 minutes - [id number]: Patient was cooperative, pleasant, motivated, and alert during treatment session. Moderate complexity evaluation performed and 1-2 personal factors or comorbidities were identified that will impact plan of care, including multiple steps at home, lives alone at home, obesity, and cardiac history. Patient presents with limitations in strength, bed mobility, transfers, gait, balance, endurance, and safety, which will impact plan of care. These limitations will be addressed by the goals set for this patient. Alarm Status Patient positioned in: Bed (supine, HOB elevated, brakes locked, waffle mattress on bed, bed lowestheight, heel protector w/ foot drop straps R LE, pillow under R LE w/ R heel off bed, O2 4L/min nc)(10/05/23 1400) With: Call villeda in reach (10/05/23 1400) Treatment Status: Treatment at bedside (10/05/23 1400) Goals: Demonstrate Bed Mobility with: Supine to Sit: supervision (with cues) Sit to supine: minimal assistance (pt does 75%) Demonstrate Transfers with: Sit to stand: moderate assistance (pt does 50%) 1 person assist Stand to sit: minimal assistance (pt does 75%) 1 person assist Bed to chair: moderate assistance (pt does 50%) 1 person assist Chair to bed: moderate assistance (pt does 50%) 1 person assist Demonstrate Ambulation: assistive device: rolling walker and heel off loading shoe R foot distance in feet: 3-5 bed <> chair level of assistance on level surface: moderate assistance (pt does 50%) 1 person assist Increase Safety: w/ functional mobility w/ heel off loading shoe R LE Time Frame: 10 sessions Assessment: O2 saturation on 4L/min O2 via nc 100% before and after standing and limited ambulationat bedside; heart rate ranged from 63 to 66 bpm. Pt presents w/ deficits in strength, balance, endurance, and functional mobility w/ pt requiring min to mod A 1 for bed mobility, mod A 2 for transfers and mod A 1 for limited amb at bedside w/ rolling walker and heel off loading shoe R LE, AM PAC 11 and is not safe to transfer or amb without assistance. At discharge would consider post acute care services which may include home health, penitentiary, outpatient therapy or in pt rehab. The level of care will be determined in collaboration with the patient, family/caregiver and care team members. Skilled PT at [facility] is warranted to address deficits in strength, endurance, balance and functional mobility and to continue to assess discharge needs. Deficits requiring P.T. treatment needs: Safety;Mobility;Balance;Weakness;Endurance (10/05/23 1400) Equipment Needs: Equipment needs: Rolling walker;Wheelchair (heel off loading shoe R LE) (10/05/231399) Treatment Plan: Bed mobility training, Transfer training, Gait training, Strengthening exercises: BLE, Balance activities, and Educate on safety with functional mobility Anticipated Frequency (on eval): (1-5 times per week) (10/05/231399) AM PAC Score with Stairs: 11 * Dahlia Mariano, OTR/Richard - 10/05/2023 1:18 PM EDTAssociated Order(s): ADULT OCCUPATIONAL THERAPY CONSULT IP GENERAL EVALUATION - Occupational Therapy [facility] [address] Name: Alexandria Smith Location: [facility] 5A-5115/W Date: 10/05/2023 Time: 1:18 PM Alexandria Smith is a 63 year old female Per H&P "with below pmh that includes morbid obesity, stage 3-4 ckd, HTN, dm2, fibromyalgia, hypothyroid, anemia of chronic disease, and chf with preserved EF. She was admitted here 1.5 months ago with heart failure, from a rehab [facility]. She was also treated for right heel osteomyelitis with meropenem, and according to patient this treatment ended weeks ago. On last Sunday, she received blood transfusion for anemia, and she initially felt ok but several days later developed fever, cough and worsening dyspnea; she was at infusion center for midline placement to continue meropenem treatment and was so short of breath that she was sent to ED. Patient was previously on 2L oxygen but needed to be placed on high flow o2. She states that she has been compliant with fluid restriction and has used her diuretics. Overall she is a poor historian, and isunclear about her antibiotic treatment, fevers, and medications." Patient Status: Inpatient Insurance: Payor: [employer] MEDICARE ADVANTAGE Plan: [employer] MEDICARE ADVANTAGE PPO Product Type: *No Product type* Payor: Lexdir [place]EL[place] Plan: Lexdir [facility] Product Type: HMO Patient Seen: at bedside Patient Identified By: Name, ID Band and Date Diagnosis: shortness of breath (10/05/231317) Status of treatment: Evaluation completed (10/05/231317) Orders: OT evaluation and treatment (10/05/231317) Weight Bearing Status: Weight bearing as tolerated (10/05/231317) Precautions: Alarms;Falls (10/05/231317) Past Medical History: Past Medical History: Diagnosis [...] performed by Lynnette Rasmussen DPM at OR [facility] INFORMATION wisdom teeth removed INJECTION CERVICAL/THORACIC 06/26/2014 INJECTION SPINE LUMBAR CERVICAL OR THORACIC performed by Héctor Rios, DO at OR [facility] INJECTION CERVICAL/THORACIC 07/10/2014 INJECTION SPINE LUMBAR CERVICAL OR THORACIC performed by Héctor Rios, DO at OR [facility] KNEE ARTHROSCOPY/REPAIR LIGAMENT 1998 Knee Scope,Aid Ant Cruciate Repair x 2 Social History/Disposition Lives with: Alone (10/05/231317) Assistance available: Yes (10/05/231317) Dwelling type: correction facility (10/05/231317) Entry steps: None (10/05/231317) Inside steps: None (10/05/231317) Bedroom location: 1st floor (10/05/231317) Bath location: 1st floor full bath (10/05/231317) Prior Level of Function Reported by: Patient (10/05/231317) Ambulation: Ambulatory with device (10/05/231317) Ambulatory Device: Rolling walker (10/05/231317) Grooming: Assistance (10/05/231317) Bathing: Assistance (10/05/231317) Dressing: Assistance (10/05/231317) Feeding: Assistance (10/05/231317) Toileting: Assistance (10/05/231317) Homemaking: Dependent (10/05/231317) Shopping: Dependent (10/05/231317) Subjective: Pt without significant comment and agreeable to participate in therapy. Pain: No complaints of pain Observations Consciousness: Alert (10/05/231317) Orientation: Oriented times 4 (10/05/231317) Psychosocial: Patient can converse in a social setting;Patient can communicate basic needs (10/05/231317) Sitting posture: Forward head;Rounded shoulders (10/05/231317) Safety awareness: The Patient verbalizes insight of current deficits. (10/05/231317) Other Findings Light touch sensation: LUE;RUE;Intact (10/05/231317) Coordination: RUE;LUE;Intact (10/05/231317) Edema: No edema noted (10/05/231317) Current Functional Status: Bilateral Upper Extremity Hand Dominance: Right (10/05/231317) Range of Motion: WFL (10/05/231317) Strength Assessment: WNL (10/05/231317) Self Care Able to provide self care: No (10/05/231317) Feeding: Supervision (Please comment) (containers) (10/05/231317) Dressing Upper Body: Modified Independent (10/05/231317) Lower Body: Modified Independent (10/05/231317) Bed Mobility Roll (Right): Maximal Assistance (10/05/231317) Roll (Left): Maximal Assistance (10/05/231317) Balance Sit (Static): Fair (10/05/231317) Sit (Dynamic): Poor (10/05/231317) Alarm Status Patient positioned in: Bed (10/05/231317) With: Call villeda in reach (10/05/231317) Patient and Family Goals: to get well and to return home Patient Education Education Topic: Role of OT;Plan of care goals (10/05/231317) Review of Precautions: Safety;Fall (10/05/231317) Method of Education: Verbalized to patient (10/05/231317) Education Provided to: Patient (10/05/231317) Response to Education: Receptive and agreeable to education (10/05/231317) Barriers to learning: Medical status (10/05/231317) Preferred learning method: Combination (10/05/231317) Treatment Provided: Evaluation Moderate Complexity 15 minutes - [id number]: Patient was cooperative and pleasant during treatment session. Moderate complexity evaluation performed and 3-5 activity limitations were identified, including ADL deficit, functional mobility deficit, bed mobility deficit, decreased strength, decreased endurance, and decreased range of motion. Minimal or moderate modificationof the functional task was necessary to complete the evaluation. Deficits Requiring O.T. Treatment: Deficits requiring O.T. treatment needs: ADL/self-care;Balance;Endurance;Functional mobility;Safety;Weakness (10/05/231317) Goals: Bathing: Upper: moderate assistance (pt does 50%). Lower: moderate assistance (pt does 50%) Dressing: Upper: minimal assistance (pt does 75%). Lower: moderate assistance (pt does 50%). Bed Mobility with: Rolling to right: minimal assistance (pt does 75%) Rolling to left: minimal assistance (pt does 75%). Transfers with: Sit to Stand: moderate assistance (pt does 50%) Toilet: maximal assistance (pt does 25%) Bed to Chair/Wheelchair: moderate assistance (pt does 50%) and assist of 2 or more. Functional Ambulation: Assistive Device: rolling walker and level of Assistance: moderate assistance (pt does 50%) . Demonstrates toileting at moderate assistance (pt does 50%) Goal Time Frame: Within 1-10 treatment sessions Assessment: Pt cooperative upon room entry. Pt reluctant to mobility due to reported fatigue and beginning of lunch. Pt able to answer all PLOF and social history questions effectively with detail. Pt required set-up assistance for feeding due to limited functional reach. Pt required assistance opening containers, but was able to manage food on utensils effectively. Pt demonstrated limited B shoulder ROM, but was able to maintain approx. functional range. Pt reported typically utilizing sock aid and long handled shoe horn at rehab. Pt also reported rolling in bed for bed baths with assistance. OT AM-PAC: 12 Pt requires assist with feeding, grooming, bathing, dressing , and toileting. As such, Would consider post-acute care services which may include home health, penitentiary, outpatienttherapy, or inpatient rehab. The level of care will be determined in collaboration with the patient, family/caregiver, and care team members. Pt would benefit from continued OT; recommend pt return to prior facility with follow up from OT toimprove level of mobility and independence with ADLs and functional mobility as pt is not currentlyfunctioning at baseline. Treatment Plan: Safety, Bed mobility training, Functional Ambulation, ROM exercises, and ADL training Anticipated Frequency (on eval): 1 to 3 times per week (10/05/231317) AM-PAC Help From Another Person Eating Meals: A little (10/05/231317) Help From Another Person Taking Care of Personal Grooming: A little (10/05/231317) Help From Another Person To Put On/Take Off Upper Body Clothing: A lot (10/05/231317) Help From Another Person To Put On/Take Off Lower Body Clothing: A lot (10/05/231317) Help From Another Person Toileting: Total (10/05/231317) Help From Another Person Bathing: Total (10/05/231317) OT AM-PAC Score: 12 (10/05/231317) OT AM-PAC t-Scale Score: 30.6 (10/05/231317) HLM (Highest Level of Mobility) Goal: Level 3 sit at edge of bed (10/05/23 0815) * Robin Childers MD - 10/04/2023 5:04 PM EDTAssociated Order(s): NEPHROLOGY CONSULT IP Reason for Consult: Acute kidney injury on CKD History of Present Illness: This is a 63-year-old female with history of hypertension, type 2 diabetes, obesity, hypothyroidism, CKD stage 3 baseline creatinine of 2, right calcaneal chronic ulcer with osteomyelitis and CHF with preserved EF was admitted with respiratory failure and found have multifocal pneumonia. She is being treated with doxycycline and meropenem. She is on high flow oxygen. She was also put on Lasix 100mg twice daily and metolazone 2.5 mg daily. Admission creatinine of 3.5. Creatinine was for 2 days prior to admission. Patient has been on chronic antibiotics at home. Review of Systems General ROS: negative for - chills or fever Psychological ROS: negative for - mood swings ENT ROS: negative for - nasal congestion or nasal discharge Endocrine ROS: negative Respiratory ROS: no cough, shortness of breath, or wheezing Cardiovascular ROS: no chest pain or dyspnea on exertion Gastrointestinal ROS: no abdominal pain, change in bowel habits, or black or bloody stools Genito-Urinary ROS: no dysuria, trouble voiding, or hematuria Musculoskeletal ROS: negative for - muscle pain Neurological ROS: no TIA or stroke symptoms Dermatological ROS: Chronic ulcer on the right heel Past Medical History Past Medical History: Diagnosis Date Acute kidney injury (HCC) Acute osteomyelitis of right calcaneus (HCC) Asthma DM type 2, goal A1c below 7 HTN, goal below 140/90 Migraine without aura Muscular deconditioning Other specified acquired hypothyroidism Umbilical hernia Past Surgical History Past Surgical History: Procedure Laterality Date ANESTHESIA FOR UTERINE ENDOSCOPY BONE BIOPSY, TROCAR/NEEDLE,SUPERFIC Right 06/06/2023 BIOPSY BONE NEEDLE SUPERFICIAL performed by Lynnette Rasmussen DPM at OR [facility] INFORMATION wisdom teeth removed INJECTION CERVICAL/THORACIC 06/26/2014 INJECTION SPINE LUMBAR CERVICAL OR THORACIC performed by Héctor Rios DO at OR [facility] INJECTION CERVICAL/THORACIC 07/10/2014 INJECTION SPINE LUMBAR CERVICAL OR THORACIC performed by Héctor Rios DO at OR [facility] KNEE ARTHROSCOPY/REPAIR LIGAMENT 1997 Knee Scope,Aid Ant Cruciate Repair x 2 Current Medications Current Facility-Administered Medications Medication Dose Route Frequency Provider gadobutrol (Gadavist) inj 12.5 mL 0.1 mL/kg Intravenous Once Dante Contreras DO guaiFENesin (Robitussin) oral liquid 100 mg 100 mg Oral QID(AM/NOON/PM/HS) Dante Contreras DO Menthol ([place]) cough drop 1 Lozenge 1 Lozenge Oral Q2H PRN Dante Contreras DO phenol (chlorASEPTIC) spray 3 [place] 3 [place] Oral Q4H PRN Diane, Dante Jamaal, DO sodium chloride 0.9 % flush/inj 10 mL 10 mL IV Push Once DianeDante, DO Acetaminophen (Tylenol) tab 650 mg 650 mg Oral Q6H PRN Alan Lozano PA-C albuterol (VENTOLIN HFA/PROVENTIL HFA) inhaler 2 Puff Inhalation Q6H PRN Alan Lozano PA-C amitriptyline (Elavil) tab 100 mg 100 mg Oral QHS Alan Lozano PA-C amLODIPine (Norvasc) tab 10 mg 10 mg Oral Daily(AM) Alan Lozano PA-C Polyethylene Glycol 3350 (Miralax) oral powder 17 g 1 Packet Oral Daily PRN Alan Lozano PA-C And [START ON 10/05/2023] senna-docusate (Senokot-S) 1 Tablet 1 Tablet Oral BID PRN Alan Lozano PA-C And [START ON 10/06/2023] Bisacodyl (Dulcolax) tab 5 mg 5 mg Oral Daily PRN Alan Lozano PA-C And [START ON 10/06/2023] Bisacodyl (Dulcolax) supp 10 mg 10 mg Rectal Daily PRN Alan Lozano PA-C Cetirizine (ZyrTEC) tab 10 mg 10 mg Oral Daily(AM) Kali Mooney MD dextrose 50% inj 25 mL 25 mL IV Push PRN Alan Lozano PA-C dextrose 50% inj 50 mL 50 mL IV Push PRN Alan Lozano PA-C doxycycline tab 100 mg 100 mg Oral Q12H Kali Mooney MD fluticasone (Flonase) nasal inhaler 1 [place] 1 [place] Nasal Daily(AM) Alan Lozano PA-C folic acid tab 1 mg 1 mg Oral Daily(AM) Alan Lozano PA-C Gabapentin (Neurontin) cap 100 mg 100 mg Oral TID PRN Alan Lozano PA-C glucagon (Glucagen) inj 1 mg 1 mg Intramuscular PRN Alan Lozano PA-C Glucose (Glutose 15) 40 % gel 15 g of glucose 15 g of glucose Oral PRN Alan Lozano PA-C Glucose (Glutose 15) 40 % gel 30 g of glucose 30 g of glucose Oral PRN Alan Lozano PA-C glucose chew tab 16 g 16 g Oral PRN Alan Lozano PA-C hEParin inj 7,500 Units 7,500 Units Subcutaneous Q8H Alan Lozano PA-C hydrOXYzine HCl tab 50 mg 50 mg Oral Q8H PRN Alan Lozano PA-C insulin aspart (NovoLOG) inj Subcutaneous With Meals and HS Alan Lozano PA-C Insulin Glargine (Lantus) inj 10 Units 10 Units Subcutaneous HS Alan Lozano PA-C levothyroxine (Levoxyl) tab 175 mcg 175 mcg Oral at 0630 Alan Lozano PA-C melatonin tab 3 mg 3 mg Oral HS PRN Alan Lozano PA-C meropenem in NSS (Merrem) ivpb 500 mg 500 mg IV Piggyback Q24H Alan Lozano PA-C omeprazole (PriLOSEC) cap 20 mg 20 mg Oral Before breakfast Alan Lozano PA-C Simvastatin (Zocor) tab 20 mg 20 mg Oral Daily(AM) Alan Lozano PA-C sodium chloride 0.9 % flush/inj 3 mL 3 mL IV Push PRN Alan Lozano PA-C trimethobenzamide (Tigan) inj 100 mg 100 mg Intramuscular TID PRN Kali Mooney MD Allergies Review of patient's allergies indicates: Allergen Reactions Clarithromycin Other (Please comment) Heart racing Dextromethorphan Hives Doxylamine Hives Uctflpazg-Fguozlbsrp-Oo-Apap Edema face/lips/tongue and Itching Amoxicillin Food (See Comments) Hives Arnold's brand 7 Grain Bread Latex Sulfa Antibiotics Other (Please comment) and Rash malaise Family History Family History Problem Relation Name Age of Onset Diabetes Mother Diabetes Grandfather (Maternal) Diabetes Uncle (Unspecified) maternal Heart Disorder Father aneyurism Heart Disorder Grandmother (Paternal) aneyurism Social Hisotry Social History Socioeconomic History Marital status: Spouse [...] Stability Do you currently live in a chcf or have no steady place to sleep [...] - for ages0-17 years): Not on file PHYSICAL EXAM BP: 118 mmHg/57 mmHg (10/04/231511) Pulse: 62 (10/04/23 151) Resp: 18 (10/04/231511) Temp: 36.28 C (10/04/231511) Temp Summary: Temp Min: 36.3 C (97.3 F) Max: 37.6 C (99.7 F) SpO2: 96 % (10/04/231511) O2 flow rate: 4 L/MIN (10/04/231624) Supplemental O2 Delivery: Nasal Cannula (10/04/231624) GENERAL: Awake, alert, in no acute distress. EYES: PERRL, conjunctivae anicteric. ENT: Mucous membranes moist, oropharynx clear. NECK: Supple, no JVD. LYMPH: No cervical or supraclavicular lymphadenopathy. LUNGS: Clear to auscultation bilaterally, no respiratory distress. CARDIAC: Regular rate and rhythm, normal S1/S2, no murmurs, rubs, or gallops. ABDOMEN: Soft, non-tender, non-distended, bowel sounds present. EXT/MSK: No clubbing, cyanosis, or edema. SKIN: No rash, no jaundice. NEURO: Oriented x3, no tremor, no asterixis. Intake/Output Summary (Last 24 hours) at 10/04/2023 1704 Last data filed at 10/04/2023 1309 Gross per 24 hour Intake 265.95 ml Output -- Net 265.95 ml LABS/STUDIES: Lab Results Component Value Date/Time BUN - [facility] 108 (H) 10/04/2023 04:41 AM BUN - [facility] 103 (H) 10/03/2023 04:36 PM BUN - [facility] 111 (H) 10/01/2023 05:47 AM BUN - [facility] 92 (H) 09/28/2023 04:26 AM BUN - [facility] 86 (H) 09/12/2023 04:25 AM BUN - [facility] 10 11/19/2018 09:00 AM BUN - [facility] 19 01/22/2018 09:45 AM BUN - [facility] 39 (H) 02/27/2017 08:30 AM BUN - [facility] 9 (L) 2001 01:52 PM BUN - [facility] 9 (L) 01/14/2001 01:16 PM Lab Results Component Value Date/Time CREATININE - [facility] 3.4 (H) 10/04/2023 04:41 AM CREATININE - [facility] 3.5 (H) 10/03/2023 04:36 PM CREATININE - [facility] 4.0 (H) 10/01/2023 05:47 AM CREATININE - [facility] 3.2 (H) 09/28/2023 04:26 AM CREATININE - [facility] 2.1 (H) 09/12/2023 04:25 AM CREATININE - [facility] 0.9 11/19/2018 09:00 AM [...] Results Component Value Date/Time POTASSIUM - [facility] 3.6 10/04/2023 04:41 AM POTASSIUM - [facility] 4.1 10/03/2023 04:36 PM POTASSIUM - [facility] 5.1 10/01/2023 05:47 AM POTASSIUM - [facility] 4.1 11/19/2018 09:00 AM POTASSIUM - [facility] 5.1 01/22/2018 09:45 AM POTASSIUM - [facility] 5.0 02/27/2017 08:30 AM Lab Results Component Value Date/Time HGB 7.6 (L) 10/04/2023 04:41 AM HGB 9.1 (L) 10/03/2023 04:36 PM HGB 9.6 (L) 10/03/2023 04:36 PM HGB 6.7 (L) 09/28/2023 04:26 AM HGB 7.2 (L) 09/26/2023 04:30 AM HGB 8.2 (L) 09/12/2023 04:25 AM HGB 13.2 12/03/2018 09:22 AM HGB 13.1 [...] Results Component Value Date/Time PHOSPHORUS - [facility] 4.6 08/21/2023 05:10 AM ASSESSMENT/PLAN: This is a 63-year-old female with history of hypertension, type 2 diabetes, obesity, hypothyroidism, CKD stage 3 baseline creatinine of 2, right calcaneal chronic ulcer with osteomyelitis and CHF with preserved EF was admitted with respiratory failure and found have multifocal pneumonia. She is being evaluated for acute kidney injury on CKD. Plan acute kidney injury on CKD: Etiology is likely ischemic ATN in setting of multifocal pneumoniaand chronic osteomyelitis of the right foot. Baseline creatinine around 2. Creatinine of 3.4 today.Electrolytes are stable. -will hold torsemide and metolazone and reassess diuretic need in the morning. -renally dose medications for current GFR. -monitor input output. 2. Acute respiratory failure: Likely due to multifocal pneumonia. Patient is on high flow oxygen. Chest x-ray did not show pulmonary edema. Will hold off on diuretics or fluids at the moment. Robin Childers MD This note was generated with the help of voice recognition software. Please excuse for errors. * Eric Gudino, DO - 10/04/2023 4:00 PM EDTAssociated Order(s): ADULT/PEDS ORTHOPAEDICS CONSULT IP Images from the original note were not included. CONSULT - Orthopaedics [address] [id number] Name: Alexandria Smith Location: [facility] [id number] Date: 10/04/2023 Time: 4:04 PM REQUESTING SERVICE: Medicine REASON FOR CONSULT: Alexandria Smith [facility] is seen at the request of hopsitalist in consultation for right heel osteomyelitis, Achilles rupture. HISTORY OF PRESENT ILLNESS: Alexandria Smith is a 63 year old, female with past medical history as listed below. Patient states she has had a wound to the right heel for at least the past year with chronic osteomyelitis. She had a bone biopsy here at a prior admission with cultures growing MSSA in May of 2023. Was also recently hospitalized at [facility] for persistent infection and had calcaneal resection, whi ch she states was done by a Dr. Self, and was discharged on course of antibiotics. Antibiotic treatment ended several weeks ago per chart review. Patient typically follows up outpatient with an outside group for her heel wound and osteomyelitis, [facility]. She went to [facility] emergency department yesterday with complaint of shortness of breath and chest pain with fevers, found to have pneumonia on chest x-ray. She notes that several weeks following completion of her last course of antibiotics she also noted recurrence of her heel pain. MRI of the foot was ordered which showed osteomyelitis of the calcaneal tuberosity, tear of plantar fascia, as well as near complete rupture of Achilles tendon. Orthopedics was consulted regarding the same. Patient denies any fevers at present and has remained afebrile. She denies any chest pain or shortness of breath. Denies any nausea, vomiting. Does note cough. HOSPITAL PROBLEM LIST: Principal Problem: Severe sepsis with acute organ dysfunction (HCC) (POA: Yes) Active Problems: Type 2 diabetes mellitus, with long-term current use of insulin (HCC) (POA: Yes) Hypothyroid (POA: Yes) Acute on chronic heart failure with preserved ejection fraction (HFpEF) (HCC) (POA: Yes) Moderate pulmonary hypertension (HCC) (POA: Yes) Chronic kidney disease, stage IV (severe) (HCC) (POA: Yes) Morbid obesity (HCC) (POA: Yes) HCAP (healthcare-associated pneumonia) (POA: Yes) Demand ischemia (HCC) (POA: Yes) Hyponatremia (POA: Yes) Rhinovirus infection (POA: Yes) Acute osteomyelitis of calcaneum, right (HCC) (POA: Yes) Acute on chronic respiratory failure with hypoxia (HCC) (POA: Yes) Acute renal failure superimposed on stage 4 chronic kidney disease (HCC) (POA: Yes) Anemia of chronic renal failure, stage 4 (severe) (HCC) (POA: Yes) POA = Present On Admission PAST MEDICAL HISTORY: Past Medical History: Diagnosis [...] performed by Lynnette Rasmussen DPM at OR [facility] INFORMATION wisdom teeth removed INJECTION CERVICAL/THORACIC 06/26/2014 INJECTION SPINE LUMBAR CERVICAL OR THORACIC performed by Héctor Shavonne Cousins, DO at OR [facility] INJECTION CERVICAL/THORACIC 07/10/2014 INJECTION SPINE LUMBAR CERVICAL OR THORACIC performed by Héctor Marvin Cousins, DO at OR [facility] KNEE ARTHROSCOPY/REPAIR LIGAMENT 1998 Knee Scope,Aid [...] Drug use: Never ALLERGIES: Clarithromycin, Dextromethorphan, Doxylamine, Ltxxukbmz-dvpgnniqzp-dm-apap, Amoxicillin, Food (see comments), Latex, and Sulfa antibiotics PHYSICAL EXAMINATION: Most Recent Vital Signs: BP: 118 mmHg/57 mmHg (10/04/231511) Pulse: 62 (10/04/231511) Resp: 18 (10/04/231511) Temp: 36.28 C (10/04/231511) Temp Summary: Temp Min: 36.3 C (97.3 F) Max: 37.6 C (99.7 F) SpO2: 96 % (10/04/231511) O2 flow rate: 4 L/MIN (10/04/231511) Supplemental O2 Delivery: Nasal Cannula (10/04/231511) O2 %: 55 % (10/04/23722) Vital Signs Over Last 24 Hours: Systolic BP: Most Recent Systolic BP Av.9 mmHg Min: 118 mmHg Max: 165 mmHg Temperature: Most Recent Temperature Av.7 C Min: 36.28 C Max: 37.61 C Pulse: Pulse Av.3 Min: 60 Max: 86 Respirations: Resp Av.1 Min: 18 Max: 22 SpO2: SpO2 Av.4 % Min: 91 % Max: 98 % Focused physical examination of right lower extremity: Chronic appearing wound to the plantar aspect of right heel without any significant erythema redness. No grossly apparent purulence. Right heel wound: CBC Results: Results for orders placed or performed during the hospital encounter of 10/03/23 CBC Result Value Ref Range WBC 15.11 (H) 4.00 - 10.80 K/uL RBC 2.66 3.85 - 5.15 M/uL HGB 7.6 (L) 12.0 - 15.3 g/dL HCT 23.1 (L) 36.0 - 45.2 % MCV 86.8 81.5 - 97.5 fL MCH 28.6 27.0 - 34.0 pg MCHC 32.9 32.0 - 36.0 g/dL RDW 15.0 11.5 - 15.5 % PLT 283 140 - 400 K/uL MPV 10.8 6.6 - 11.1 fL nRBCs 0 <=0 /100 WBCs IMAGING: EXAM MRI FOOT RIGHT WO CONTRAST-RT 10/04/2023 11:56 am HISTORY Provided clinical history: "osteo heel" COMPARISON Right foot radiographs dated June 03, 2023 and right ankle MRI dated June 04, 2023. TECHNIQUE Multiplanar, multi-sequence MRI of the right hindfoot/ankle was performed without IV contrast. FINDINGS There is a large soft tissue wound/ulcer at the plantar aspect of the heel, with a tract that extends to the plantar surface of the calcaneal tuberosity. There is extensive bone marrow enhancement and loss of T1 marrow signal within the tuberosity, consistent with osteomyelitis. There is also prominent edema in the soft tissues surrounding the ulcer. High-grade tear/rupture of the plantar fascia, including a complete tear of the central band, partial tear of the lateral band, and probable complete tear of the medial band. There is also a near complete rupture of the Achilles tendon at its insertion, with only a thin band of tendon fibers possibly remaining intact. Diffuse edema and atrophy of the intrinsic foot musculature. IMPRESSION IMPRESSION 1. Osteomyelitis of the calcaneal tuberosity, with a large soft tissue wound/ulcer and sinus tract at the plantar aspect of the heel. 2. High-grade tear/rupture of the plantar fascia. 3. Near-complete rupture of the Achilles tendon IMPRESSION and PLAN: 63-year-old female with right heel wound and chronic osteomyelitis - no plan for acute orthopedic intervention at this time - patient typically follows up outpatient with Dr. Self at [facility] for her heel wound. Patient states that if she were to require surgical management for her chronic osteomyelitis, she would prefer to seek outpatient treatment with Dr. Self. - continue with daily dressing changes per Wound Care nurse - antibiotics and rest of medical management per primary service Patient's case and plan of care was reviewed and discussed with attending physician Dr. Gudino. This chart was completed in part utilizing [employer] Voice Recognition Software. Grammatical errors, random word insertions, prounoun errors and incomplete sentences are an occasional consequence of this system due to software limitations, ambient noise, and hardware issues. Any formal questions or concerns about the content, text, or information contained within the body of this dictation should be directly addressed to the provider for clarification. Patient was independently evaluated by me. We have discussed the above diagnoses to include right calcaneal osteomyelitis with associated plantar wound. I have determined the planned management of the patient regarding outpatient follow-up with preferred podiatric provider, Dr. Self. I have discussed the case, findings, and plan with him, and have reviewed the documentation in detail. I agreewith the note and the plan of care as outlined above. Eric Gudino DO * Pato Gonzalez MD - 10/04/2023 10:55 AM EDTAssociated Order(s): INFECTIOUS DISEASE CONSULT IP CONSULT - Infectious Disease [facility] [address] Name: Alexandria Smith Location: [facility] [id number] Date: 10/04/2023 Time: 10:56 AM REQUESTING SERVICE: hospitalist REASON FOR CONSULT: RSV pneumonia versus bacterial pneumonia in addition to heel osteomyelitis HPI: Patient is a 63 year old female admitted to the hospital on 10/03/2023. This is a 63 y/o morbidly obese female w/ hx of IDDM2, HFpEF, GERD, CKD, moderate pulm HTN, and OM of R foot. The patient is known to ID service for R heel OM s/p bone bx (06/06/23: bone culture grew MSSA). She was given a course of cefazolin, completed on 07/23/23. However, she presumably had relapsed vs persistent infection, requiring hospitalization at [facility] and resection of the calcaneum w/ culture positive w/ PSA. She was discharged to a [facility] on another long-term course of meropenem, completedon 09/11/23. I saw the patient during her recent hospitalization at [facility], 08/14-08/21/23, for evaluation for ACS and presumed URI w/ Rhinovirus. This time she came to [facility] for fever, cough and worsening dysp chelita w/ acute hypoxic respiratory failure, requiring HFNC. The patient reports that her respiratory symptoms gradually developed over the course of 2 weeks. She also developed new R heel pain about 2 weeks post completion of last abx course w/ meropenem. No fever but leukocytosis was noted on presentation. RPPCR was again positive w/ Rhinovirus. CXR showed a dense consolidation in the right lower lobe and patchy infiltrates in the left lower lobe consistent with multifocal pneumonia. MRI of R foot showed OM of the calcaneal tuberosity, with a large soft tissue wound/ulcer and sinus tract at the plantar aspect of the heel w/ high-grade tear/rupture of the plantar fascia and near-complete rupture of the Achilles tendon. She is currently on O2 supplement, remaining afebrile. She reports constant coughing productive w/ sputum but no chest pain. She has loose BM 1-2 times a day. Denies n/v or abd pain but urinary incontinence w/ coughing. She again reports persistent moderate pain in R heel. She was empirically started on meropenem and doxycycline. ALLERGIES: Clarithromycin, Dextromethorphan, Doxylamine, Eqzfdxwqj-qapgxyxjpp-is-apap, Amoxicillin, Food (see comments), Latex, and Sulfa [...] performed by Lynnette Rasmussen DPM at OR [facility] INFORMATION wisdom teeth removed INJECTION CERVICAL/THORACIC 06/26/2014 INJECTION SPINE LUMBAR CERVICAL OR THORACIC performed by Héctor Shavonne Cousins, DO at OR [facility] INJECTION CERVICAL/THORACIC 07/10/2014 INJECTION SPINE LUMBAR CERVICAL OR THORACIC performed by Héctor Shavonne Cousins, DO at OR [facility] KNEE ARTHROSCOPY/REPAIR LIGAMENT 1998 Knee Scope,Aid [...] PGMA (Not Specified) UNCLE (Not Specified) ROS: As HPI and all others negative PHYSICAL EXAMINATION: Most Recent Vital Signs: BP: 140 mmHg/60 mmHg (10/04/23 0723) Pulse: 60 (10/04/23722) Resp: 22 (10/03/23 1900) Temp: 36.28 C (10/04/23722) Temp Summary: Temp Min: 36.3 C (97.3 F) Max: 37.6 C (99.7 F) SpO2: 94 % (10/04/23722) O2 flow rate: 35 L/MIN (10/04/23722) Supplemental O2 Delivery: HFNC (10/04/23722) Vital Signs Last 24 Hours: Systolic BP: Most Recent Systolic BP Av mmHg Min: 120 mmHg Max: 175 mmHg Temperature: Most Recent Temperature Av.9 C Min: 36.28 C Max: 37.61 C Pulse: Pulse Av.9 Min: 60 Max: 86 Respirations: Resp Av.7 Min: 22 Max: 26 SpO2: SpO2 Av.8 % Min: 84 % Max: 98 % Constitutional: no acute distress HEENT: normal: normocephalic, atraumatic; no masses, tenderness, or adenopathy Eyes: sclera and conjunctiva normal CV: normal rate and rhythm, no murmur, gallops or rub, normal heart sounds Chest: normal respiratory effort, chest wall normal, difficult to auscultate bibasilar area, rest of the area w/ clear lung sounds, no wheezing, currently on NC O2 Abdomen: normal: soft, bowel sounds normal, no masses, tenderness or organomegaly, morbidly obese Extremities: no clubbing, no cyanosis Skin: warm, dry, large chronic wound on plantar side of the R heel w/ no obvious purulent dischargebut possibly probing, no surrounding erythema/warmth : Neuro: alert, oriented to person, place, and time LABS: Labs reviewed as indicated below: WBC 18.21K -> 15.11K H 7.6 Plt 283K Cr 4.0 ->-> 3.4 (CrCl 21.4) LFT ast 39, alt 17, alk phos 343, T bili 0.4 MICROBIOLOGY DATA: Surface wound cx: PSA (07/2023: I to cefep, pip/tazo; R to ceftaz; S to cipro, gent, lvq, nicolle, tobra) Deep wound R heel (10/01): PSA (mckeon S) Blood cx (10/02): NGTD IMAGING: CXR (10/02): Dense consolidation in the right lower lobe and patchy infiltrates in the left lower lobe consistent with multifocal pneumonia. MRI R foot (10/03): 1. Osteomyelitis of the calcaneal tuberosity, with a large soft tissue wound/ulcer and sinus tract at the plantar aspect of the heel. 2. High-grade tear/rupture of the plantar fascia. 3. Near-complete rupture of the Achilles tendon. IMPRESSION: Bacterial sepsis Recalcitrant R heel OM w/ sinus tract Suspected multifocal pneumonia Acute on chronic hypoxic respiratory failure Rhinovirus infection Chronic R heel wound post recently treated R heel OM s/p partial calcanectomy at [facility] (08/02/23) Morbid obesity Hx of IDDM2, HFpEF, GERD, moderate pulm HTN, CKD Hx of reaction to clarithromycin, amox, sulfa RECOMMENDATIONS: - I agree w/ meropenem but 500 mg iv [id number] given CrCl 10-25 - I agree w/ doxycycline for empiric atypical coverage, but I recommend to stop it if the Legionella urine antigen turns out to be negative. - check MRSA screen just in case. The patient appears clinically stable w/o MRSA coverage - check pneumococcal urine antigen - check Legionella urine antigen - check procalcitonin - obtain sputum for bacterial culture - F/u blood cultures (already collected). Do not repeat blood cultures unless instructed to do so - ortho eval for more definitive surgical intervention. I assume she has ongoing OM again on R heelgiven the MRI finding and onset of new pain at that site. She had 2 separate long-term abx therapy w/ partial resection of the heel and yet she still has this issue now w/ the non heeling wound w/ sinus tract. I doubt this will be cured w/ another long-term abx therapy. - Will continue to follow. More than 50% of this 60-minute visit was spent counseling and coordinating care pertaining to the patient's infection diagnosis, additional work-up, and treatment option(s) as well as potential adverse events of the treatment. * Mirian Gamino LPN - 10/04/2023 8:13 AM EDTAssociated Order(s): WOUND CONSULT IP Order Date:10/03/2023 Ordering User:TOM GAYTAN [[id number]] Attending Provider:Deng Padilla DO [[id number]] Authorizing Provider: Kali Mooney MD [[id number]] Department:[address] [place] [address][[id number] Order Specific Information Order: WOUND CONSULT IP [CUSTOM: [id number]] Order #: [id number]: 1 Naomy ority: Routine Class: Nursing Unit Reason for Consult: -> see wd page Consulting Provider: -> Lj Provider Released on: 10/03/2023 9:11 PM Priority: Routine Class: Nursing Unit Reason for Consult: -> see wd page Consulting Provider: -> Lj Provider Released on: 10/03/2023 9:11 PM Wound Care consult done for Rt heel DFU HPI; Information obt from chart, and patient: 63 y woman with below pmh that includes morbid obesity, stage 3-4 ckd, HTN, dm2, fibromyalgia, hypothyroid, anemia of chronic disease, and chf with preserved EF. She was admitted here 1.5 months ago with heart failure, from a rehab [facility]. She was also treated for right heel osteomyelitis with meropenem, and according to patient this treatment ended weeks ago. On last Sunday, she received blood transfusion for anemia, and she initially felt ok but several days later developed fever, coughand worsening dyspnea; she was at infusion center for midline placement to continue meropenem treatment and was so short of breath that she was sent to ED. Patient was previously on 2L oxygen but needed to be placed on high flow o2. She states that she has been compliant with fluid restriction and has used her diuretics. Overall she is a poor historian, and is unclear about her antibiotic treatment, fevers, and medications. Wound care was asked to see pt by nursing staff for Rt heel DFU. Pt is known to wound care for Rt heel DFU. She was last seen on 08/20/23 during admission. She was to be NWB in heel offloading shoe. She was from [facility] at that time for rehab. She was to have wound vac placed when she returned there. She had a recent admission to [facility] for relapse vs persistent infection and required resectionof the calcaneum. She was discharged to a [facility] on another long-term course of iv cefazolin. Called [facility] to discuss wound care. Spoke to Martina Aguero RN. She reported doing Betadine WTD daily. Pt was being gotten OOB w/ keegan lift since yesterday other luo she was independent in heel offloa ding shoe prior to that. Past medical history: Past Medical History: Diagnosis [...] performed by Lynnette Rasmussen DPM at OR [facility] INFORMATION wisdom teeth removed INJECTION CERVICAL/THORACIC 06/26/2014 INJECTION SPINE LUMBAR CERVICAL OR THORACIC performed by Héctor Marvin Cousins, DO at OR [facility] INJECTION CERVICAL/THORACIC 07/10/2014 INJECTION SPINE LUMBAR CERVICAL OR THORACIC performed by Héctor Marvin Cousins, DO at OR [facility] KNEE ARTHROSCOPY/REPAIR LIGAMENT 1998 Knee Scope,Aid [...] Stability Do you currently live in a chcf or have no steady place to sleep [...] comment) Heart racing Dextromethorphan Hives Doxylamine Hives Klbcwbqkg-Yijkyiwdwr-Sh-Apap Edema face/lips/tongue and Itching Amoxicillin Food (See Comments) Hives [employer]'s brand 7 Grain Bread Latex Sulfa Antibiotics Other (Please comment) and Rash malaise Code status: Code Status: Full Code Focused Wound Assessment: VS: /BP 140/60 | Pulse 60 | Temp 36.3 C (97.3 F) (Temporal Artery) | Resp 22 | Ht 1.575 m (5' 2") | Wt 125.2 kg (276 lb) | LMP 11/22/2002 | SpO2 94% | BMI 50.48 kg/m | BSA 2.34 m General: Neuro: MS: Vascular: Integumentary: PULSE SCALE: 4=Aneurysmal; 3=Normal; 2=Diminished; 1=Barely Palpable; 0=Absent Eduar: 15 10/03/232044 Eduar Scale - Daily Sensory Perception 4 Moisture 2 Activity 2 Mobility 2 Nutrition 3 Friction and Shear 2 Eduar Score (auto-calculation) 15 Support surface: standard mattress Routine repositioning past 24 hrs: no Moisture management past 24 hrs: moisture adsorbent pads. Nutritional support: High Calorie/High Protein Supplement Review of Labs/Tests: Latest Reference Range & Units 10/04/23 04:41 10/04/23 08:05 Sodium 135 - 146 mmol/L 131 (L) Potassium 3.5 - 5.1 mmol/L 3.6 Chloride 98 - 107 mmol/L 92 (L) CO2 22 - 32 mmol/L 24 BUN 6 - 20 mg/dL 108 (H) Creatinine 0.5 - 1.0 mg/dL 3.4 (H) Estimated Glomerular Filtration Rate >=60 mL/min 15 (L) Anion Gap 7 - 15 mmol/L 15 Glucose 70 - 120 mg/dL 179 (H) Calcium 8.4 - 10.2 mg/dL 8.3 (L) Glucose Meter 70 - 120 mg/dL 140 (H) CBC Rpt ! WBC 4.00 - 10.80 K/uL 15.11 (H) RBC 3.85 - 5.15 M/uL 2.66 HGB 12.0 - 15.3 g/dL 7.6 (L) HCT 36.0 - 45.2 % 23.1 (L) MCV 81.5 - 97.5 fL 86.8 MCH 27.0 - 34.0 pg 28.6 MCHC 32.0 - 36.0 g/dL 32.9 RDW 11.5 - 15.5 % 15.0 PLT 140 - 400 K/uL 283 MPV 6.6 - 11.1 fL 10.8 (L): Data is abnormally low (H): Data is abnormally high !: Data is abnormal Rpt: View report in Results Review for more information Interventions/treatments: Pt was not seen at this time. She was off the floor for testing. Discussed w/ Nursing staff. For now will continue w/ Betadine WTD dressing daily. Thank you for consult. Coordinated care w/ nursing. Call or TT w/ any questions or concerns. Mirian Cain LPN,[facility] Licensed Practical Nurse, Wound Care Certified, Ostomy management consultant Wound Care Resource Nurse 10/04/23 11:54 AM documented in this encounter Nursing Notes * Asia Frost RN - 10/09/2023 9:58 AM EDT Pt wheeled off of unit via p d driver in wheelchair. Pt belongings sent with patient to [facility]. IV site removed. * Ruth Williamson RN - 10/08/2023 6:30 PM EDT Allevyn placed to the L heel, heel appeared boggy, skin intact blanchable. Dsg change to R heel perWOC nurse recommendations, betadine, packing W>D sterile dsg with abd and kerlix wrap. Pt tolerated well. * Paco Reyes RN - 10/05/2023 5:08 PM EDT Reached out to Dr. Childers of nephrology due to GFR being 15, need to get approval to place Line in pt per policy. Dr. Parker states "No PICC line in this Patient" over secure [place] Text. * Mirian Gamino LPN - 10/05/2023 10:18 AM EDT Images from the original note were not included. Pt was seen this morning for wound care to Rt heel. Pt is known to wound care. She is AA&O. Illappearing. C/o SOB, cough and fatigue. She is on O2 NC. Dressing removed to Rt foot. Cleansed w/ soap & water. Wound probes to bone w/ some mild necrotic adherent tissue. Bradford moist granular tissue noted around tunneling. Edges have betadine staining. Mod purulent drainage noted on old dressing. Denied pain, sensation in Rt foot. Dr. Contreras into see pt. Ortho had consult with pt yesterday. Nosurgical interventions at this time. Pt opts to f/u OP w/ her Director Outpatient Services, Dr Self at [facility]. Wound packed w/ betadine WTD. Pt tolerated well. Pt's Eduar score 15, recommend PIPI including waffle mattress, heel boot, elevated heels to float off surface, routine repositioning q 2 hrs, and moisture management. May also consider prophylactic foam dressing to sacrum/coccyx. Thank you for consult. Coordinated care w/ Dr Contreras Call or TT w/ any questions or concerns. Mirian Cain LPN,[facility] Licensed Practical Nurse, Wound Care Certified, Ostomy management consultant Wound Care Resource Nurse 10/05/23 10:27 AM * Tess Aquino RN - 10/03/2023 9:23 PM EDT VIRTUAL RN [facility] [id number] Name: Alexandria Smith Location: [facility] [id number] Date: 10/03/2023 Time: 9:23 PM I completed the Admission Navigator. The patient was in the hospital. I was not in a hospital or clinic location. After connecting through [employer], the patient was identified by name and date of and / or wristband checked. Patient (or authorized legal surgical sales representative) was then informed that this was a Virtual Nurse visit and was being conducted confidentially over secure lines. I used a headset and other methods to ensure confidentiality for the patient. My office door was closed. No oneelse was in the room with me. Patient acknowledged consent and understanding of privacy and security of the Virtual Nurse visit. I presented the opportunity for the patient or authorized legal surgical sales representative to ask any questions regarding the visit today. The patient or authorized legal surgical sales representative agreed to participate. * Tom Gaytan LPN - 10/03/2023 8:56 PM EDT Dual Licensed Skin Assessment completed by CATHERINE Gaytan and RN Natali Coley. The patient is/has a N/A Skin Breakdown (includes non blanchable erythema): Yes. Wound Type: Other, location R heel, diabetic ulcer? Wound Ostomy Nurse Notified: Yes - notified via wound care protocol Nursing interventions: wound assessed, measured, wet to dry dsg applied. Pt arrived to . Nurse reviewed hourly rounding, use of call villeda, safety with pt. Pt reported that she was aware of topics as she has been in hospital here at [place] several times. documented in this encounter ED Notes * Deng Padilla DO - 10/03/2023 7:33 PM EDT HISTORY OF PRESENT ILLNESS Alexandria Smith is a 63 year old female who presents to the ED for evaluation of Short of Breath. The patient was seen at 10/03/23 1551. Short of Breath Review of Systems Respiratory: Positive for shortness of breath. This is a 63yoF with hx of type II DM, CKD, CHF, HTN, osteomyelitis presenting for SOB, chest pain,and fevers, Patient reports that she had infusion of meropenem performed 5 days ago, and was back in clinic today for midline placement to continue this treatment for her osteomyelitis. For the past three days that patient has had gradually worsening SOB and chest pain with fevers to 102F. Feels similar to previous episodes of pneumonia. While in clinic she was noted to be tachypneic. Advised to come to the ED for further eval. Denies associated headache, vision changes, nausea, vomiting, diarrhea, urinary symptoms, focal weakness, or numbness. Has had no worsening lower extremity edema from baseline. The patient's allergies, past history, and medications were reviewed. PHYSICAL EXAM Initial Vitals (see all): BP 175/72 | Pulse 81 | Resp 26 | Temp 98.8 | O2 84 %, Venturi Mask | Weight 125.19 kg | Height 157.5 cm | BMI 50.48 kg/m2 Initial Pain Assessment (see all): 7 (severe pain)/10, Tightness, location: chest ([facility] Adult Scale 0-10) Physical Exam Vitals and nursing note reviewed. Constitutional: Appearance: She is ill-appearing. HENT: Head: Normocephalic and atraumatic. Right Ear: External ear normal. Left Ear: External ear normal. Nose: Nose normal. No rhinorrhea. Mouth/Throat: Mouth: Mucous membranes are moist. Pharynx: Oropharynx is clear. No posterior oropharyngeal erythema. Eyes: Extraocular Movements: Extraocular movements intact. Conjunctiva/sclera: Conjunctivae normal. Pupils: Pupils are equal, round, and reactive to light. Cardiovascular: Rate and Rhythm: Normal rate and regular rhythm. Heart sounds: No murmur heard. Pulmonary: Breath sounds: No stridor. Rhonchi (left-sided) present. No wheezing or rales. Comments: tachypneic Abdominal: General: There is no distension. Palpations: Abdomen is soft. Tenderness: There is no abdominal tenderness. There is no right CVA tenderness, left CVA tenderness, guarding or rebound. Musculoskeletal: General: No swelling. Normal range of motion. Cervical back: Normal range of motion and neck supple. Skin: General: Skin is warm and dry. Capillary Refill: Capillary refill takes less than 2 seconds. Neurological: General: No focal deficit present. Mental Status: She is alert and oriented to person, place, and time. Sensory: No sensory deficit. Motor: No weakness. Psychiatric: Mood and Affect: Mood normal. PROCEDURES AND TREATMENTS ED Orders | ED Results MEDICAL DECISION MAKING Nursing notes and vital signs were reviewed. ED consults were placed. ED Course as of 10/04/231443Oct 03, 2023 1557 Patient was evaluated. Afebrile and hemodynamically stable. Had recent fever of 101 F since Sunday. Has had increased work of breathing and chest discomfort since then. Feels similar to when shewas had pneumonia in the past. Has had increased cough and sputum production. Hypoxic to the mid 80s on home 2 L here in the emergency department. Sent from [facility]. Laboratory studies and imaging pending. [AH] 1700 Given hx of pneumonia with symptoms recently concerning for this and persistent hypoxia with simple mask, placed on HFNC and patient has improved and is tolerating well. Laboratory studies reviewed. Leukocytosis to 18k present with elevated troponin though stable on repeat testing. Appears to have NELSON on CKD. BNP elevated from baseline. Troponin likely elevated from component of demand ischemia with ongoing septic presentation with chest XR concerning for multifocal pneumonia on my independent interpretation, however given her hx of CHF with elevated BNP and appropriate blood pressure will hold off on additional fluid resuscitation at this time. Meroponem was ordered alongside doxycycline for treatment of her PNA and atypical coverage with associated osteo. Discussed plan for admission with the patient who was understanding and agreeable. Admitted to medicine for further management. [AH] ED Course User Index [AH] Deng Padilla DO Differential Diagnoses Based on my history, physical exam, and evaluation, the differential includes, but is not limited, to the following diagnoses: acute coronary syndrome, CHF, dysrhythmia, pneumonia, pneumothorax, respiratory failure, sepsis and URI. Amount and/or Complexity of Data Reviewed Labs: ordered. Risk Prescription drug management. Decision regarding hospitalization. Clinical Impressions Shortness of breath Multifocal pneumonia Acute hypoxic respiratory failure (HCC) Acute on chronic congestive heart failure, unspecified heart failure type (HCC) Disposition Admitted. I discussed the management of this patient with the admitting provider and I made a decision to admit the patient. Admission Order Ordered Status . 10/03/231931 Admit for Inpatient Services (incl ZPO) ONCE Completed Deng Padilla * Ivonne Suero RN - 10/03/2023 3:50 PM EDT Was at Hem/Onc clinic for a midline today. Before discharge pt stated she wanted to come to ED because she is SOB and CP and coughing. States it all started Sunday. Was here on Sunday and had a unit of blood in clinic. Pt requesting an O2 mask. Wears 2L via NC at . documented in this encounter Miscellaneous Notes * Ancillary Progress Note - Chantel Gallego RN - 10/09/2023 9:58 AM EDT CARE MANAGEMENT - ADULT DISCHARGE NOTE [facility] [id number] Name: Alexandria Smith Location: [place] [id number]/ Date: 10/09/2023 Time: 11:05 AM The following coordination of care and discharge plan has been coordinated with the care team, patient, family and/or caregiver according to the patients needs and preferences. Discharge Final Discharge Plan (Complete only at time of Discharge): SNF (10/09/23 1104) Destination - Discharged on 10/09/2023 Admission date: 10/03/2023 - Discharge disposition: IP Rehab Service Provider Selected Services Address Phone Fax Patient Preferred Last Updated [facility] [address] [place] [phone] -- Chantel Gallego RN 10/09/2023 1107 Narrative: discharge to [facility] with [facility]. * Communication - Gay Ring RN - 10/09/2023 8:54 AM EDT Appointments: Please have labs drawn weekly starting October 11- CMP, CBCw/diff and CRP You have a follow up appointment 12/27/2023 @ 9AM Dr. Pato Gonzalez Infectious Disease [address] * Ancillary Progress Note - Chantel Gallego, SARTHAK - 10/08/2023 3:45 PM EDT CARE MANAGEMENT - ADULT TRANSITION NOTE [facility] [phone] Name: Alexandria Smith Location: [facility] [id number]/ Date: 10/08/2023 Time: 3:46 PM Risk Stratification Risk Stratification Psycho Social / Medical Concerns Identified: None Identified (10/05/23 1542) Accessed 004 Technologies to connect patients to social care resources: No (10/05/23 1542) Readmission Risk Score: 48.07 (10/08/23 1200) AM-PAC Score With Stairs : 9 (10/08/23 0837) Caregiver Information Patient Contacts Name Relation Home Work Mobile ALEISHA DOW Other - (no specific identity) [phone] Thao Hussein Friend [phone] Transition of Care Checklist Narrative: discussed in IDT rounds. Plan for priority discharge tomorrow morning. Note in UR stating auth approved "10/07 Antony called from [employer] and stated SNF will be approved for 10/07-10/15 . Patient has used 91 0f her 100 SNF days". and 5a charge nurse, Mena made aware transport will be set up for 1000 tomorrow morning. Vickie at [facility] made aware of discharge plan. 1625: SNF auth Ref [id number] Anticipated Transportation at Discharge: medical Patient/Family Expectations: [facility] Transition Planning Additional Considerations: Care Management will continue to monitor and assist with discharge planning needs * Care Plan - Zeinab Carranza RN - 10/08/2023 5:01 AM EDT Clinical Goal(s): Pt will sleep for at least 4 hours during this shift (10/07/232017) Possible barriers to meeting goal(s)/advancing plan of care: Stress, pain, hospital environment, admitting diagnosis Stability of the patient: Moderately stable - low risk of patient condition declining or worsening Summary regarding today's goal(s): Met: Pt slept for at least 4 hours during this shift Recommendations: Continue to implement stress reduction strategies and monitor pain level, providing appropriate interventions as needed. Follow plan of care. * Care Plan - Rita Anguiano RN - 10/07/2023 5:03 PM EDT Clinical Goal(s): Pt will have SpO2 above 90% this shift (10/07/23 1000) Possible barriers to meeting goal(s)/advancing plan of care: Admitting diagnosis Stability of the patient: Moderately stable - low risk of patient condition declining or worsening Summary regarding today's goal(s): Met: Pt had SpO2 above 90% this shift Recommendations: Continue current plan of care, monitor SpO2, administer O2 as prescribed * Care Plan - Zeinab Carranza RN - 10/07/2023 5:00 AM EDT Clinical Goal(s): Pt will sleep for at least 4 hours during this shift (10/06/23 1950) Possible barriers to meeting goal(s)/advancing plan of care: Stress, pain, admitting diagnosis, hospital environment Stability of the patient: Moderately stable - low risk of patient condition declining or worsening Summary regarding today's goal(s): Met: Pt slept for at least 4 hours during this shift Recommendations: Continue to implement stress reduction strategies and monitor pain level, providing appropriate interventions as needed. Follow plan of care. * Care Plan - Harriett Elam RN - 10/06/2023 6:37 PM EDT Clinical Goal(s): Pt will have no falls this shift (10/06/23 1058) Possible barriers to meeting goal(s)/advancing plan of care: Left foot wound Stability of the patient: Moderately stable - low risk of patient condition declining or worsening Summary regarding today's goal(s): Met: No falls this shift Recommendations: Ensure all fall protocols are implemented * Ancillary Progress Note - Tim El PTA - 10/06/2023 2:30 PM EDT PROGRESS NOTE - Physical Therapy [facility] [place] [address] Name: Alexandria Smith Location: [facility] [id number] Date: 10/06/2023 Time: 1430 Alexandria Smith is a/an 63 year old female. Patient Status: Inpatient Insurance: Payor: [employer] MEDICARE ADVANTAGE Plan: [employer] MED[employer]ARE ADVANTAGE PPO Product Type: *No Product type* Payor: [employer] [place] Plan: People Pattern [facility] Product Type: HMO Patient Seen: at bedside, nursing cleared patient for therapy Patient Identified By: Name, ID Band and Date Diagnosis: Gait dysfunction, weakness, Acute on chronic heart failure with preserved ejection fraction, osteomyelitis R foot (10/05/23 1400) Status of treatment: Treatment completed (10/06/23 1530) Orders: PT evaluation and treatment (10/05/231399) Weight Bearing Status: Weight bearing as tolerated (10/06/23 1530) Precautions: Safety;Falls (10/06/23 1530) Total Treatment Time--free text: 30 mins (10/06/23 1530) Subjective: "Im doing ok. I want to get back to [facility]" Pain: No complaints of pain P.T. Bed Mobility Roll (Right): Minimal Assistance (10/05/23 1400) Roll (Left): Minimal Assistance (10/05/23 1400) Supine-Sit: Minimal Assistance (10/05/23 1400) Sit-Supine: Moderate Assistance (10/05/23 1400) Transfers Sit-Stand: Moderate Assistance (mod A 2) (10/05/23 1400) Stand-Sit: Maximal Assistance (10/05/23 1400) Ambulation: No GT Balance Sit (Static): Good (10/05/231399) Sit (Dynamic): Good (10/05/231399) Stand (Static): Poor (10/05/231399) Stand (Dynamic): Poor (10/05/231399) Patient and or Family Goal(s): to get well and to return home Topic of Education: Safety with mobility and Fall prevention Method of Education: Demonstrated the above task to pt: verbalized understanding and or agreement of this information and demonstrated the exercise and or task Treatment Provided: Therapeutic Exercises: 30 minutes Alarm Status Patient positioned in: Bed (10/06/231529) With: Call villeda in reach (10/06/231529) Patient Education Review of Precautions: Safety;Fall;Weight Bearing Status (10/06/231529) Review of Exercises: Pt Demonstrated Exercise;Verbal Exercises Provided (10/06/231529) Safety Awareness: Patient verbalizes insight of current deficits;Patient demonstrates carryover of insight during functional tasks;Patient can communicate basic needs (10/06/231529) Preferred learning method: Combination (10/05/231399) Barriers to learning: Medical Status (10/05/231399) Method of Education: Verbalized to patient;Patient demonstrated task (10/05/231399) Assessment: Pt tolerated tx well with no reported pain or SOB post tx session. Pt did report feeling fatigued post tx session. Pt did report feeling fatigued post tx session. Pt performed supine exercises in the bed to increase strength and ROM to improve functional mobility. Pt was left lying supine in bed with HOB elevated to comfort. No needs post tx session. Pt instructed to not get up without assistance. Deficits requiring P.T. treatment needs: Safety;Mobility;Balance;Weakness;Endurance (10/05/231399) Equipment needs: Rolling walker;Wheelchair (heel off loading shoe R LE) (10/05/231399) Plan: Continue with current treatment plan established on evaluation. AM PAC Score with Stairs: 9 * Care Plan - Rita Anguiano RN - 10/06/2023 5:09 AM EDT Clinical Goal(s): Pt will have adequate rest this shift (10/05/23 3686) Possible barriers to meeting goal(s)/advancing plan of care: Unfamiliar environment Stability of the patient: Moderately stable - low risk of patient condition declining or worsening Summary regarding today's goal(s): Met: Pt had adequate rest this shift Recommendations: Continue current plan of care, bundle nursing care as appropriate * Pt Handout (on AVS) - Marti Chappell RN - 10/05/2023 9:56 PM EDT Images from the original note were not included. [id number] What Is Pneumonia? Pneumonia is a serious lung infection. It can affect 1 or both lungs. Many cases of pneumonia are caused by bacteria or viruses. Fungi may also cause pneumonia. But this is less common. You may get pneumonia after an illness, such as a cold, flu, or bronchitis. Those most at risk for pneumonia include: Babies Children Older adults Smokers People with long-term (chronic) health problems or weak immune systems Healthy lungs Air travels in and out of the lungs through tubes called airways. The tubes branch into smaller passages called bronchioles. These end in tiny air sacs called alveoli. Blood vessels surrounding the alveoli take oxygen into the bloodstream. At the same time, the alveoli remove carbon dioxide (a waste gas) from the blood. The carbon dioxide is then exhaled. When you have pneumonia Pneumonia causes the bronchioles and the alveoli to fill with excess mucus or pus. They become inflamed. Your body?s response may be to cough. This can help clear out the fluid. The fluid (mucus) you cough up may look green or dark yellow. The excess mucus may make you feel short of breath. The inflammation and infection may give you a fever. What are the symptoms? Pneumonia symptoms can come without warning. At first, you may think you have a cold or flu. But symptoms may get worse quickly. They then turn into pneumonia. Symptoms can be different for bacterialand viral pneumonia. They may be mild or severe. Common symptoms may include: Severe cough with green or yellow mucus that doesn't get better. Or gets worse. Fever and chills Upset stomach (nausea), vomiting, or diarrhea Loss of appetite Shortness of breath with normal daily activities Increased heart rate Chest pain or discomfort when breathing in or coughing Headache A lot of sweating and clammy skin Severe tiredness (fatigue) Last Reviewed Date: 06/11/202319997232-1607 [employer]. All rights reserved. This information is not intended as a substitute for professional medical care. Always follow your healthcare professional's instructions. * Pt Handout (on AVS) - Marti Chappell RN - 10/05/2023 9:56 PM EDT Images from the original note were not included. [id number] Pneumonia (Adult) Pneumonia is an infection inside the lungs. It's in the small air sacs (alveoli). It may be caused by a virus, fungus, or bacteria. Pneumonia caused by bacteria is treated with an antibiotic medicine. Severe cases may need to be treated in the hospital. Milder cases can be treated at home. Symptomsmay include fever, chills, and cough (dry or with phlegm). You may have a headache, muscle weakness, trouble breathing, and pain. These symptoms often get worse in the first 2 days. But they often start to get better in the first week of treatment. Home care Follow these guidelines when caring for yourself at home: Get plenty of rest. Take naps as needed. Don?t let yourself get too tired when you go back to your activities. Go back to activities as directed by your healthcare provider. Stop smoking. This is the most important step you can take to help treat pneumonia. If you need help to stop, talk with your healthcare provider. Stay away from secondhand smoke. Don?t let anyone smoke in your home or your car. Wash your hands often with soap and clean, running water. Rub for at least 20 seconds. Make sureto clean under your nails and between your fingers. When you can't wash your hands, use hand dirt bike racer with at least 60% alcohol. Cover your mouth and nose when coughing or sneezing. Use a tissue or the inside of your elbow. Don't cough or sneeze into your hands. Throw used tissues away. Be sure to wash your hands after coughing, sneezing, or blowing your nose. Limit close contact with other people while you are sick. Stay away from crowds during cold and flu season. Consider wearing a mask in crowds. Use pain medicine as directed. You may use acetaminophen or ibuprofen to control fever or pain, unless another medicine was prescribed. If you have chronic liver or kidney disease, talk with your healthcare provider before using these medicines. Also talk with your provider if you?ve had a stomach ulcer or bleeding in your stomach or intestines. Don?t give aspirin to a child younger than age 19 unless directed by the provider. Taking aspirin can put a child at risk for Bradford syndrome. This avril rare but very serious disorder. It most often affects the brain and the liver. Drink plenty of water and other fluids. This can make mucus thinner and easier to cough up. Ask your healthcare provider how much water you should drink. For many people, 6 to 8 glasses (8 ounces each) a day is a good goal. Other fluids include sport drinks, sodas without caffeine, juices, tea, or soup. If you also have heart or kidney disease, check with your provider before you drink extra fluids. Eat as you are able. You may not feel hungry, so a light diet is fine. Follow the treatment javier advised by your healthcare provider. Take medicines as instructed by your healthcare provider. If you were given an antibiotic medicine, take it until it's all gone, even if you are feeling better after a few days. Try to stay away from air pollution. If you live in an area with air pollution, track the Air Quality Index (AQI) reports. Plan your outdoor activities when air quality is OK. Follow-up care Follow up with your healthcare provider in the next 2 to 3 days, or as advised. Following up with your provider as directed is important to make sure you are getting better. You may need more tests if you aren't getting better. Take steps to prevent future infections. Ask your healthcare provider what vaccines are right for you and when to get them. This may include the influenza (flu), COVID-19, and pneumococcal vaccines. Call 911 Call 911 if any of these occur: Unable to speak or swallow Lips or skin looks blue, purple, or ba Feeling dizzy Fainting Unable to be awake or aware Feeling of doom Trouble breathing or wheezing Shortness of breath gets worse or doesn't get better with treatment Rapid breathing (more than 25 breaths per minute) Coughing up blood Chest pain gets worse with breathing or doesn't get better with treatment When to get medical advice Call your healthcare provider right away if any of these occur: You don?t get better in the first 2 to 3 days of treatment Fever of 100.4F (38C) or higher, or as directed by your healthcare provider Shaking chills Cough with phlegm that doesn't get better, or get worse Shortness of breath with activities Weakness, dizziness, or fainting that gets worse Thirst or dry mouth that gets worse Sinus pain, headache, or a stiff neck Chest pain with breathing or coughing Symptoms that get worse or don't get better Last Reviewed Date: 02/09/[id number] [employer]. All rights reserved. This information is not intended as a substitute for professional medical care. Always follow your healthcare professional's instructions. * Care Plan - Vero Meek RN - 10/05/2023 6:46 PM EDT Clinical Goal(s): Pt will have no falls this shift (10/05/23 0815) Possible barriers to meeting goal(s)/advancing plan of care: weakness Stability of the patient: Moderately stable - low risk of patient condition declining or worsening Summary regarding today's goal(s): Met: pt had no falls this shift Recommendations: continue w/ current plan of care and fall precautions * Ancillary Progress Note - Samina Mckeon, Microstrategy Reports Developer - 10/05/2023 3:44 PM EDT CARE MANAGEMENT - ADULT INITIAL SCREENING [facility] [id number] Name: Alexandria Smith Location: [facility] 5A-5115/W Date: 10/05/2023 Time: 3:44 PM Discussed patient with the interdisciplinary care team. This Radio Program Checker performed a chart review and met with patient at bedside to complete admission screen and assessed needs for transition planning. The manager critical care unit role and services were explained and emotional support was provided. Chief Complaint: Short of Breath Prior Living Arrangements What was your living situation prior to admission/observation?: Alone (10/05/231541) Living Quarters: Apartment (10/05/231541) Number of steps to enter living quarters:: 2 (10/05/231541) Do you have serious difficulty walking or climbing stairs? (5 years old or older): Yes (10/03/232112) History of falling: No (10/05/23814) Prior Level of Functioning Describe the patient's ability prior to admission/observation to perform ADLs: Performs independently (10/05/231541) Requires assistance with: Dressing;Bathing (10/05/23 1200) Describe the patient's mobility status prior to admission: Patient ambulates independently (10/05/231541) Patient uses assistive device: Yes (10/05/231541) If yes, choose:: Walker (10/05/231541) Caregiver Information Patient Contacts Name Relation Home Work Mobile ALEISHA DOW Other - (no specific identity) [phone] Thao Hussein Friend [phone] Risk Stratification/Psychosocial/Care Gaps Risk Stratification Psycho Social / Medical Concerns Identified: None Identified (10/05/231541) Accessed [facility] to connect patients to social care resources: No (10/05/231541) Readmission Risk Score: 44.08 (10/05/23 1200) AM-PAC Score With Stairs : 11 (10/05/23 1400) Prior to Admission Services Services Prior to Admission COOLING ROOM ATTENDANT Services (Services received within the last 30 days with exception, Psych within last two years): Half-Way (10/05/231541) List All Provider/Service Name: Vazquez Edwards (10/05/231541) Agency contacted: Yes (10/05/231541) Spoke with - Comment: Vickie Rodriguez (10/05/231541) Half-Way Facility Bed Hold Confirmed: No (10/05/231541) [place] Dept[employer] (PDA) Waiver Program: N/A (10/05/231541) COOLING ROOM ATTENDANT Transportation (Services received within the last 30 days): County Transportation;Medical Transportation (10/05/231541) Outpatient Radio Program Checker: No care water team leader to display Patient/Family Expectations: to get well and return to [facility]. Pt is from home alone in a one story apartment with 2 steps to enter. She completes ADL's independently and uses a walker to ambulate. Pt is on 2L of oxygen and gets her oxygen from [facility]. Pt recently at and is a bed hold. Pt will return for IV antibiotics. Authorization submitted. Pt will need medical transport at discharge. For further screening information, please refer to the Care Management flow document. * Ancillary Progress Note - Danelle Kay RN - 10/05/2023 1:08 PM EDT Request for auth submitted for admission to [facility]. * Progress Notes - Non-Billable - Pato Gonzalez MD - 10/05/2023 12:01 PM EDT DISCHARGE PROGRESS NOTE - Infectious Disease [facility] [address] Name: Alexandria Smith Location: [facility] 5A-5115/W Date: 10/05/2023 Time: 12:[address] Contreras, the patient did not want orthopedics to do any intervention at this time. She wantsto be evaluated by her smash piecer at [facility]. 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 However, as mentioned yesterday, I do not believe this long-term antibiotic therapy is the definitive solution. The infection recurred after a long-term abx therapy and partial resection. The patient may need more definitive intervention such as BKA. Syndrome Osteomyelitis Microbiology Pseudomonas aeruginosa Antibiotic Meropenem 500 mg iv q12 hours (adjust for renal function) End Date 11/13/23 Vascular access: Remove intravascular access after completion of antibiotics Recommended followup imaging studies: Not applicable LABORATORY MONITORING: Lab Test Frequency End Date CBC with diff CMP CRP Q week 11/13/23 PROVIDERS: Following ID Physician ID clinic follow-up date Leilani Gonzalez 3-5 weeks * Ancillary Progress Note - Olya Tolentino PT - 10/05/2023 9:30 AM EDT Attempted PT consult at 0930. Patient refused mobility at this time due to fatigue. Spoke with FEDE Nguyen, at [facility]. States that patients baseline is pivot transfer with 1-2 person assist. However she recently had a decline and was downgraded to a Keegan lift within the past week. TT with Srikanth Young, Ortho PA-C, who clarified that WBing status continues to be WBAT in heel offloading shoe. Patient will need the offloading shoe for mobility at [facility] as hers is still at [facility]. Will attempt PT consult again later today or tomorrow based on schedule and patients tolerance. * Care Plan - Rita Anguiano RN - 10/05/2023 5:19 AM EDT Clinical Goal(s): Pt will have adequate rest this shift (10/04/230) Possible barriers to meeting goal(s)/advancing plan of care: Unfamiliar environment Stability of the patient: Moderately stable - low risk of patient condition declining or worsening Summary regarding today's goal(s): Not Met: Pt did not have adequate rest this shift Recommendations: Continue current plan of care, bundle nursing care as appropriate * Inpatient Ask-A-Doc - Pato Gonzalez MD - 10/04/2023 11:18 AM EDT ASK-A-DOC Inpatient Note [facility] [address] Name: Alexandria Smith Location: [facility] 5A-5115/W Date: 10/04/2023 Time: 11:18 AM Patient is to be seen in person today. * ED Clinical Dietician Note - Ifrah Foley, SARTHAK - 10/03/2023 7:54 PM EDT Report called to 5A. All questions addressed and answered. * Medical Necessity - Zion Olivier, Utilization Review Staff - 10/03/2023 7:39 PM EDT AdmissionCare Guideline: Pneumonia - INPT, Inpatient Based on the indications selected for the patient, the bed status of Inpatient was determined to beMET The following indications were selected as present at the time of evaluation of the patient: - Clinical Indications for Admission to Inpatient Care - Admission is indicated for 1 or more of the following: - Ventilatory assistance needed (eg, mechanical ventilation, noninvasive ventilation) Additional Information: rhino+ HFNC troponin 191 BNP 10,003 WBC 18.21 vibramycin, merrem AdmissionCare documentation entered by: Zion Olivier [facility] [employer], 28th edition, Copyright 2023 [facility] [employer] All Rights Reserved. [id number] Solely for purpose of utilization review and payment; not a diagnostic tool * ED Clinical Dietician Note - Ifrah Foley RN - 10/03/2023 6:23 PM EDT Pt was given water and crackers per her request. * ED Clinical Dietician Note - Ifrah Foley RN - 10/03/2023 4:27 PM EDT Pt here from the infusion clinic for CP, SOB, and cough since 09/30. Pt got a midline placed today in the infusion clinic for home meropenem infusions for osteomyelitis. Pt is from [facility]. Pt reports that she normally wears 2L O2 at night. Is currently on high flow nasal cannula set to 35L, 55% with spo2 at 98%. Pt resting comfortably, respirations even and unlabored. Says that she is able to cough sputum but says that she swallows it. +nausea. Denies abd pain, v/d. Pt is AOx4, respirations even and unlabored, heart regular, lungs clear, abd soft, non distended. Pt resting on stretcher with call villeda in reach. * ED Clinical Dietician Note - Ivonne Suero RN - 10/03/2023 4:05 PM EDT Per Vazquez Edwards, pt was to have midline placed today and then discharged back to [facility] for IV Mirapenem for osteomyelitis. documented in this encounter Plan of Treatment Upcoming Encounters Date Type Department Care Team (Late st Contact Info) Description 11/13/2023 11:00 AM EDT Office Visit Infectious Disease, [address] [phone] Rciky Carnes MD [address] [place] [address] 12/25/2023 10:00 AM EDT Office Visit Nephrology, Katerin Wolf [address] [facility] [place] [address] Joslyn Barney MD [address] [facility] [place] [address] Scheduled Orders Name Type Priority Associated Diagnoses Orde r Schedule BASIC METABOLIC PANEL Lab Routine Anemia of chronic renal failure, stage 4 (severe) (HCC) Ordered: 10/08/2023 CBC Lab Routine Severe sepsis with acute organ dysfunction (HCC) Ordered: 10/08/2023 COMPREHENSIVE METABOLIC PANEL Lab Routine Acute osteomyelitis of calcaneum, right (HCC) Ordered: 10/09/2023 CRP (INFLAMMATORY MARKER) Lab Routine Acute osteomyelitis of calcaneum, right (HCC) Ordered: 10/09/2023 CBC WITH WBC DIFFERENTIAL Lab Routine Acute osteomyelitis of calcaneum, right (HCC) Ordered: 10/09/2023 Health Maintenance Due Date Last Done Comments Depression Screening 1972 HIV Screening 1975 Diabetic Foot Exam 1978 HPV/Co-Test 1990 Mammogram 2000 Diabetic Eye Exam 07/09/2001 07/09/2000 Cologuard 2005 Colonoscopy 2005 Colorectal Cancer Screening 2005 Fecal Occult Blood Test 2005 Sigmoidoscopy 2005 DTaP,Tdap,and Td Vaccines (2 - Tdap) 11/03/2008 11/03/1998 Zoster Vaccines (1 of 2) 2010 Cervical Cancer Screening 11/11/2013 Pap Smear 11/11/2013 11/11/2010, 04/2010, 12/10/2002, Additional history exists Pneumococcal Vaccine: Pediatrics (0 to 5 Years) and At-Risk Patients (6 to 64 Years) (3 of 3 - PCV) 01/26/2017 01/27/2016, 07/10/2011, 01/18/1996 Albumin/Creatinine Ratio 11/20/2019 019, 2001, 07/09/2000, Additional history exists COVID-19 Vaccine (2 - season) 2022 08/24/2020 Influenza Vaccine (FLU shot) (#1) 2023 12/18/2017, 10/24/2016, 01/11/2016, Additional history exists HbA1c 04/05/2024 10/04/2023, 05/11, 11/19/2018, Additional history exists GFR 04/10/2024 10/09/2023, 09/10, 10/07/2023, Additional history exists TSH 06/26/2024 06/27/2023, 04/0 07/2023, 06/02/2023, Additional history exists Nephrology Referral 09/16/2024 09/17/2023 PTH 09/30/2024 10/01/2023 Phosphate 10/06/2024 10/07/2023, 08/10, 06/25/2023, Additional history exists Hgb 10/08/2024 10/09/2023, 09/10, 10/07/2023, Additional history exists HPV (Gardasil) Vaccine Aged [...] Comments GLUCOSE METER, POINT OF CARE SUAD 10/09/2023 7:42 AM EDT BASIC METABOLIC PANEL Routine 10/09/2023 4:56 AM EDT CBC Routine 10/09/2023 4:56 AM EDT MAGNESIUM Routine 10/09/2023 4:56 AM EDT GLUCOSE METER, POINT OF CARE SUAD 10/08/2023 9:16 PM EDT GLUCOSE METER, POINT OF CARE SUAD 10/08/2023 4:28 PM EDT GLUCOSE METER, POINT OF CARE SUAD 10/08/2023 11:45 AM EDT GLUCOSE METER, POINT OF CARE SUAD 10/08/2023 8:36 AM EDT PROCALCITONIN Routine 10/08/2023 5:46 AM EDT BASIC METABOLIC PANEL Routine 10/08/2023 5:46 AM EDT FOLIC ACID Add-on 10/08/2023 5:46 AM EDT IRON SCREEN, INCLUDING TIBC Add-on 10/08/2023 5:46 AM EDT CBC Routine 10/08/2023 5:46 AM EDT MAGNESIUM Routine 10/08/2023 5:46 AM EDT FERRITIN Add-on 10/08/2023 5:46 AM EDT VITAMIN B12 Add-on 10/08/2023 5:46 AM EDT GLUCOSE METER, POINT OF CARE [facility] 10/07/2023 10:16 PM EDT GLUCOSE METER, POINT OF CARE [facility] 10/07/2023 9:36 PM EDT GLUCOSE METER, POINT OF CARE SUAD 10/07/2023 4:53 PM EDT GLUCOSE METER, POINT OF CARE SUAD 10/07/2023 11:31 AM EDT GLUCOSE METER, POINT OF CARE SUAD 10/07/2023 7:33 AM EDT PROCALCITONIN Routine 10/07/2023 3:44 AM EDT BASIC METABOLIC PANEL Routine 10/07/2023 3:44 AM EDT TYPE AND SCREEN Routine 10/07/2023 3:44 AM EDT PT INR Routine 10/07/2023 3:44 AM EDT PHOSPHORUS Routine 10/07/2023 3:44 AM EDT CALCIUM, IONIZED Routine 10/07/2023 3:44 AM EDT CBC Routine 10/07/2023 3:44 AM EDT MAGNESIUM Routine 10/07/2023 3:44 AM EDT GLUCOSE METER, POINT OF CARE SUAD 10/06/2023 9:29 PM EDT GLUCOSE METER, POINT OF CARE SUAD 10/06/2023 4:32 PM EDT GLUCOSE METER, POINT OF CARE SUAD 10/06/2023 11:36 AM EDT XR CHEST 1 VIEW Routine 10/06/2023 8:38 AM EDT Other nonspecific abnormal finding of lung field Hypoxemia GLUCOSE METER, POINT OF CARE SUAD 10/06/2023 8:16 AM EDT PROCALCITONIN Add-on 10/06/2023 4:23 AM EDT CRP (INFLAMMATORY MARKER) Add-on 10/06/2023 4:23 AM EDT BNP (NT-PROBNP) Add-on 10/06/2023 4:23 AM EDT BASIC METABOLIC PANEL Routine 10/06/2023 4:23 AM EDT ERYTHROCYTE SEDIMENTATION RATE (ESR) Add-on 10/06/2023 4:23 AM EDT CBC Routine 10/06/2023 4:23 AM EDT MAGNESIUM Add-on 10/06/2023 4:23 AM EDT GLUCOSE METER, POINT OF CARE SUAD 10/05/2023 9:26 PM EDT GLUCOSE METER, POINT OF CARE SUAD 10/05/2023 4:29 PM EDT CULTURE, RESPIRATORY, LOWER, AEROBIC Routine 10/05/2023 1:52 PM EDT STREPTOCOCCUS PNEUMONIAE ANTIGENS, URINE Routine 10/05/2023 1:52 PM EDT LEGIONELLA ANTIGEN, URINE Routine 10/05/2023 1:52 PM EDT GLUCOSE METER, POINT OF CARE SUAD 10/05/2023 11:50 AM EDT GLUCOSE METER, POINT OF CARE SUAD 10/05/2023 8:07 AM EDT BASIC METABOLIC PANEL Routine 10/05/2023 6:05 AM EDT CBC Routine 10/05/2023 6:05 AM EDT MAGNESIUM Routine 10/05/2023 6:05 AM EDT GLUCOSE METER, POINT OF CARE SUAD 10/04/2023 9:28 PM EDT MRSA SCREEN, PCR Routine 10/04/2023 3:01 PM EDT GLUCOSE METER, POINT OF CARE SUAD 10/04/2023 12:18 PM EDT MRI FOOT RIGHT WO CONTRAST Routine 10/04/2023 11:56 AM EDT Pressure ulcer of right heel, unstageable (HCC) Strain of other muscle(s) and tendon(s) at lower leg level, right leg, initial encounter Abnormal findings on diagnostic imaging of limbs GLUCOSE METER, POINT OF CARE SUAD 10/04/2023 8:05 AM EDT PROCALCITONIN Add-on 10/04/2023 4:41 AM EDT HEMOGLOBIN A1C Routine 10/04/2023 4:41 AM EDT BASIC METABOLIC PANEL Routine 10/04/2023 4:41 AM EDT CBC Routine 10/04/2023 4:41 AM EDT GLUCOSE METER, POINT OF CARE SUAD 10/03/2023 9:27 PM EDT CULTURE, BLOOD Routine 10/03/2023 8:29 PM EDT CULTURE, BLOOD Routine 10/03/2023 8:26 PM EDT TROPONIN T, HIGH SENSITIVITY STAT 10/03/2023 5:44 PM EDT EXTRA LIGHT BLUE TOP Routine 10/03/2023 4:36 PM EDT DIFFERENTIAL, AUTOMATED STAT 10/03/2023 4:36 PM EDT TROPONIN T, HIGH SENSITIVITY STAT 10/03/2023 4:36 PM EDT BLOOD GAS, VENOUS STAT 10/03/2023 4:3 6 PM EDT BNP (NT-PROBNP) STAT 10/03/2023 4:36 PM EDT COMPREHENSIVE METABOLIC PANEL STAT 10/03/2023 4:36 PM EDT CBC STAT 10/03/2023 4:36 PM EDT PT INR STAT 10/03/2023 4:36 PM EDT CBC STAT 10/03/2023 4:36 PM EDT XR CHEST 1 VIEW STAT 10/03/2023 4:14 PM EDT Other nonspecific abnormal finding of lung field Shortness of breath RESPIRATORY PATHOGEN PANEL, PCR STAT 10/03/2023 3:52 PM EDT documented in this encounter Results * (ABNORMAL) GLUCOSE METER, POINT OF CARE (10/09/2023 7:42 AM EDT) [facility] Signature Glucose Meter 151(H) 70 - 120 mg/dL 10/09/2023 7:46 AM EDT [facility] Blood Whole blood specimen / Unknown 10/09/2023 7:42 AM EDT 10/09/2023 7:46 AM EDT Ayana Summers MD LAB POINT OF CARE TEST DOCKED DEVICE UNSOLICITED RESULTS [facility] [address] [place] [id number] * MAGNESIUM (10/09/2023 4:56 AM EDT) [facility] Magnesium 1.7 1.5 - 2.6 mg/dL 10/09/2023 5:27 AM EDT LABORATORY [facility] Blood Venous blood specimen / Unknown Venipuncture / Unknown 10/09/2023 4:56 AM EDT 10/09/2023 5:09 AM EDT Ayana Summers MD LAB BLOOD ORDERABL [facility] [address] [address] * (ABNORMAL) CBC (10/09/2023 4:56 AM EDT) WBC 15.33(H) 4.00 - 10.80 K/uL 10/09/2023 5:10 AM EDT LABORATORY [facility] RBC 2.75 3.85 - 5.15 M/uL 10/09/2023 5:10 AM EDT LABORATORY GL HGB 7.8(L) 12.0 - 15.3 g/dL 10/09/2023 5:10 AM EDT LABORATORY [facility] HCT 24.0(L) 36.0 - 45.2 % 10/09/2023 5:10 AM EDT LABORATORY GL MCV 87.3 81.5 - 97.5 fL 10/09/2023 5:10 AM EDT LABORATORY GL MCH 28.4 27.0 - 34.0 pg 10/09/2023 5:10 AM EDT LABORATORY GL MCHC 32.5 32.0 - 36.0 g/dL 10/09/2023 5:10 AM EDT LABORATORY GL RDW 15.1 11.5 - 15.5 % 10/09/2023 5:10 AM EDT LABORATORY GL PLT 319 140 - 400 K/uL 10/09/2023 5:10 AM EDT LABORATORY [facility] MPV 11.0 6.6 - 11.1 fL 10/09/2023 5:10 AM EDT LABORATORY GL nRBCs 0 <=0 /100 WBCs 10/09/2023 5:10 AM EDT LABORATORY [facility] Blood Venous blood specimen / Unknown Venipuncture / Unknown 10/09/2023 4:56 AM EDT 10/09/2023 5:07 AM EDT Ayana Summers MD LAB BLOOD ORDERABL [facility] [address] [address] * (ABNORMAL) BASIC METABOLIC PANEL (10/09/2023 4:56 AM EDT) BUN 101(H) 6 - 20 mg/dL 10/09/2023 5:27 AM EDT LABORATORY GL Creatinine 2.6(H) 0.5 - 1.0 mg/dL 10/09/2023 5:27 AM EDT LABORATORY GL Estimated Glomerular Filtration Rate 20(L) >=60 mL/min 10/09/2023 5:27 AM EDT LABORATORY [facility] Comment:eGFR is calculated b ased on the CKD-EPI 2020 equation. Sodium 132(L) 135 - 146 mmol/L 10/09/2023 5:27 AM EDT LABORATORY [facility] Potassium 4.0 3.5 - 5.1 mmol/L 10/09/2023 5:27 AM EDT LABORATORY [facility] Chloride 95(L) 98 - 107 mmol/L 10/09/2023 5:27 AM EDT LABORATORY [facility] CO2 24 22 - 32 mmol/L 10/09/2023 5:27 AM EDT LABORATORY [facility] Anion Gap 13 7 - 15 mmol/L 10/09/2023 5:27 AM EDT LABORATORY [facility] Glucose 187(H) 70 - 120 mg/dL 10/09/2023 5:27 AM EDT LABORATORY [facility] Calcium 8.8 8.4 - 10.2 mg/dL 10/09/2023 5:27 AM EDT LABORATORY [facility] Blood Venous blood specimen / Unknown Venipuncture / Unknown 10/09/2023 4:56 AM EDT 10/09/2023 5:09 AM EDT Ayana Summers MD LAB BLOOD ORDERABL [facility] [address] [address] * (ABNORMAL) GLUCOSE METER, POINT OF CARE (10/08/2023 9:16 PM EDT) Glucose Meter 184(H) 70 - 120 mg/dL 10/08/2023 9:53 PM EDT [facility] Blood Whole blood specimen / Unknown 10/08/2023 9:16 PM EDT 10/08/2023 9:53 PM EDT Ayana Summers MD LAB POINT OF CARE TEST DOCKED DEVICE UNSOLICITED RESULTS Performing Organization Address [facility]/ZIP Co de Phone Number [facility] [address] [place] [phone] * (ABNORMAL) GLUCOSE METER, POINT OF CARE (10/08/2023 4:28 PM EDT) Glucose Meter 176(H) 70 - 120 mg/dL 10/08/2023 4:36 PM EDT [facility] Blood Whole blood specimen / Unknown 10/08/2023 4:28 PM EDT 10/08/2023 4:36 PM EDT Ayana Summers MD LAB POINT OF CARE TEST DOCKED DEVICE UNSOLICITED RESULTS Performing Organization Address [facility] Co de Phone Number [facility] [address] [place] [address] * (ABNORMAL) GLUCOSE METER, POINT OF CARE (10/08/2023 11:45 AM EDT) Glucose Meter 125(H) 70 - 120 mg/dL 10/08/2023 12:03 PM EDT [facility] Blood Whole blood specimen / Unknown 10/08/2023 11:45 AM EDT 10/08/2023 12:02 PM EDT Ayana Summers MD LAB POINT OF CARE TEST DOCKED DEVICE UNSOLICITED RESULTS Performing Organization Address [facility] de Phone Number [facility] [address] [place] [address] * (ABNORMAL) GLUCOSE METER, POINT OF CARE (10/08/2023 8:36 AM EDT) Glucose Meter 122(H) 70 - 120 mg/dL 10/08/2023 8:43 AM EDT [facility] Blood Whole blood specimen / Unknown 10/08/2023 8:36 AM EDT 10/08/2023 8:43 AM EDT Ayana Summers MD LAB POINT OF CARE TEST DOCKED DEVICE UNSOLICITED RESULTS Performing Organization Address [facility] Co de Phone Number [facility] [address] [place] [address] * FOLIC ACID (10/08/2023 5:46 AM EDT) Folic Acid >20.0 >4.5 ng/mL 10/08/2023 10:34 PM EDT LABORATORY [facility] Blood Venous blood specimen / Unknown Venipuncture / Unknown 10/08/2023 5:46 AM EDT 10/08/2023 6:14 AM EDT Ayana Summers MD LAB BLOOD ORDERABL ES Performing Organization Address [facility]/ZIP Co de Phone Number LABORATORY [facility] [address] [place] [address] * (ABNORMAL) VITAMIN B12 (10/08/2023 5:46 AM EDT) Vitamin B12 1,779(H) 232 - 1,245 pg/mL 10/08/2023 10:34 PM EDT LABORATORY [facility] Blood Venous blood specimen / Unknown Venipuncture / Unknown 10/08/2023 5:46 AM EDT 10/08/2023 6:14 AM EDT Ayana Summers MD LAB BLOOD ORDERABL ES Performing Organization Address [facility] Co de Phone Number LABORATORY [facility] [address] [place] [address] * (ABNORMAL) FERRITIN (10/08/2023 5:46 AM EDT) Ferritin 1,280(H) 13 - 150 ng/mL 10/08/2023 10:34 PM EDT LABORATORY [facility] Comment:Postmenopausal women have higher ferritin levels than pre-menopausal women. The above reference interval is based on pre-menopausal women. Blood Venous blood specimen / Unknown Venipuncture / Unknown 10/08/2023 5:46 AM EDT 10/08/2023 6:14 AM EDT Ayana Summers MD LAB BLOOD ORDERABL ES Performing Organization Address City/[facility]/ZIP Co de Phone Number LABORATORY [facility] [address] [place] [address] * (ABNORMAL) IRON SCREEN, INCLUDING TIBC (10/08/2023 5:46 AM EDT) Iron 34 33 - 151 ug/dL 10/08/2023 9:49 PM EDT LABORATORY [facility] Iron Binding Capacity 184(L) 250 - 425 ug/dL 10/08/2023 9:49 PM EDT LABORATORY [facility] Transferrin Saturation Percent 18 15 - 55 % 10/08/2023 9:49 PM EDT LABORATORY [facility] Blood Venous blood specimen / Unknown Venipuncture / Unknown 10/08/2023 5:46 AM EDT 10/08/2023 6:14 AM EDT Ayana Summers MD LAB BLOOD ORDERABL ES LABORATORY [facility] [address] [place] [address] * (ABNORMAL) PROCALCITONIN (10/08/2023 5:46 AM EDT) Procalcitonin 0.47(H) <0.10 ng/mL 10/08/2023 7:12 AM EDT LABORATORY [facility] Blood Venous blood specimen / Unknown Venipuncture / Unknown 10/08/2023 5:46 AM EDT 10/08/2023 6:14 AM EDT Narrative LABORATORY [facility] - 10/08/2023 7:12 AM EDT Less than 0.5 ng/mL: Low risk for progression to sepsis. Review patients condition for localized infections. 0.5 to 2.0 ng/mL: Intermediate risk for progresion to sepsis. Review underlying conditions. Recommend repeat PCT after 6 hours has elapsed. Greater than 2.0 ng/mL: high risk for progression to sepsis unless other causes are known. Ayana Summers MD LAB BLOOD ORDERABL ES LABORATORY [address] [address] * MAGNESIUM (10/08/2023 5:46 AM EDT) Magnesium 1.7 1.5 - 2.6 mg/dL 10/08/2023 6:45 AM EDT LABORATORY [facility] Blood Venous blood specimen / Unknown Venipuncture / Unknown 10/08/2023 5:46 AM EDT 10/08/2023 6:14 AM EDT Ayana Summers MD LAB BLOOD ORDERABL ES LABORATORY [facility] [address] [place] [address] * (ABNORMAL) CBC (10/08/2023 5:46 AM EDT) WBC 15.17(H) 4.00 - 10.80 K/uL 10/08/2023 6:20 AM EDT LABORATORY GL RBC 2.62 3.85 - 5.15 M/uL 10/08/2023 6:20 AM EDT LABORATORY GL HGB 7.4(L) 12.0 - 15.3 g/dL 10/08/2023 6:20 AM EDT LABORATORY GL HCT 23.1(L) 36.0 - 45.2 % 10/08/2023 6:20 AM EDT LABORATORY GL MCV 88.2 81.5 - 97.5 fL 10/08/2023 6:20 AM EDT LABORATORY GL MCH 28.2 27.0 - 34.0 pg 10/08/2023 6:20 AM EDT LABORATORY GL MCHC 32.0 32.0 - 36.0 g/dL 10/08/2023 6:20 AM EDT LABORATORY GL RDW 15.0 11.5 - 15.5 % 10/08/2023 6:20 AM EDT LABORATORY GL PLT 321 140 - 400 K/uL 10/08/2023 6:20 AM EDT LABORATORY GL MPV 11.4 6.6 - 11.1 fL 10/08/2023 6:20 AM EDT LABORATORY GL nRBCs 0 <=0 /100 WBCs 10/08/2023 6:20 AM EDT LABORATORY GL Blood Venous blood specimen / Unknown Venipuncture / Unknown 10/08/2023 5:46 AM EDT 10/08/2023 6:14 AM EDT Ayana Summers MD LAB BLOOD ORDERABL ES LABORATORY GL [address] [place] [address] * (ABNORMAL) BASIC METABOLIC PANEL (10/08/2023 5:46 AM EDT) BUN 106(H) 6 - 20 mg/dL 10/08/2023 6:45 AM EDT LABORATORY [facility] Creatinine 2.9(H) 0.5 - 1.0 mg/dL 10/08/2023 6:45 AM EDT LABORATORY [facility] Estimated Glomerular Filtration Rate 18(L) >=60 mL/min 10/08/2023 6:45 AM EDT LABORATORY [facility] Comment:eGFR is calculated b ased on the CKD-EPI 2020 equation. Sodium 130(L) 135 - 146 mmol/L 10/08/2023 6:45 AM EDT LABORATORY [facility] Potassium 4.0 3.5 - 5.1 mmol/L 10/08/2023 6:45 AM EDT LABORATORY [facility] Chloride 95(L) 98 - 107 mmol/L 10/08/2023 6:45 AM EDT LABORATORY [facility] CO2 25 22 - 32 mmol/L 10/08/2023 6:45 AM EDT LABORATORY [facility] Anion Gap 10 7 - 15 mmol/L 10/08/2023 6:45 AM EDT LABORATORY [facility] Glucose 148(H) 70 - 120 mg/dL 10/08/2023 6:45 AM EDT LABORATORY [facility] Calcium 8.5 8.4 - 10.2 mg/dL 10/08/2023 6:45 AM EDT LABORATORY [facility] Blood Venous blood specimen / Unknown Venipuncture / Unknown 10/08/2023 5:46 AM EDT 10/08/2023 6:14 AM EDT Ayana Summers MD LAB BLOOD ORDERABL ES LABORATORY GL [address] [place] [address] * (ABNORMAL) GLUCOSE METER, POINT OF CARE (10/07/2023 10:16 PM EDT) Glucose Meter 270(H) 70 - 120 mg/dL 10/07/2023 10:20 PM EDT [facility] Blood Whole blood specimen / Unknown 10/07/2023 10:16 PM EDT 10/07/2023 10:20 PM EDT Ayana Summers MD LAB POINT OF CARE TEST DOCKED DEVICE UNSOLICITED RESULTS Performing Organization Address City/[facility]/ZIP Co de Phone Number [facility] [address] [place] [address] * (ABNORMAL) GLUCOSE METER, POINT OF CARE (10/07/2023 9:36 PM EDT) Glucose Meter 260(H) 70 - 120 mg/dL 10/07/2023 9:38 PM EDT [facility] Blood Whole blood specimen / Unknown 10/07/2023 9:36 PM EDT 10/07/2023 9:38 PM EDT Ayana Summers MD LAB POINT OF CARE TEST DOCKED DEVICE UNSOLICITED RESULTS Performing Organization Address [facility] Co de Phone Number [facility] [address] [place] [address] * (ABNORMAL) GLUCOSE METER, POINT OF CARE (10/07/2023 4:53 PM EDT) Glucose Meter 187(H) 70 - 120 mg/dL 10/07/2023 5:00 PM EDT [facility] Blood Whole blood specimen / Unknown 10/07/2023 4:53 PM EDT 10/07/2023 5:00 PM EDT Ayana Summers MD LAB POINT OF CARE TEST DOCKED DEVICE UNSOLICITED RESULTS Performing Organization Address [facility] Co de Phone Number [facility] [address] [place] [address] * (ABNORMAL) GLUCOSE METER, POINT OF CARE (10/07/2023 11:31 AM EDT) Glucose Meter 218(H) 70 - 120 mg/dL 10/07/2023 12:13 PM EDT [facility] Blood Whole blood specimen / Unknown 10/07/2023 11:31 AM EDT 10/07/2023 12:13 PM EDT Ayana Summers MD LAB POINT OF CARE TEST DOCKED DEVICE UNSOLICITED RESULTS Performing Organization Address City/[facility] Co de Phone Number [facility] [address] [place] [address] * (ABNORMAL) GLUCOSE METER, POINT OF CARE (10/07/2023 7:33 AM EDT) Glucose Meter 123(H) 70 - 120 mg/dL 10/07/2023 7:50 AM EDT [facility] Blood Whole blood specimen / Unknown 10/07/2023 7:33 AM EDT 10/07/2023 7:50 AM EDT Ayana Summers MD LAB POINT OF CARE TEST DOCKED DEVICE UNSOLICITED RESULTS Performing Organization Address [facility] de Phone Number [facility] [address] [place] [address] * TYPE AND SCREEN (10/07/2023 3:44 AM EDT) ABO A 10/07/2023 4:59 AM EDT LABORATORY [facility] BLOOD BANK Rh Positive 10/07/2023 4:59 AM EDT LABORATORY [facility] BLOOD BANK Red Blood Cell Antibody Screen Negative 10/07/2023 4:59 AM EDT LABORATORY [facility] BLOOD BANK Specimen Expiration Date 10/10/2023 23:59 10/07/2023 4:59 AM EDT LABORATORY [facility] BLOOD BANK Blood Venous blood specimen / Unknown Venipuncture / Unknown 10/07/2023 3:44 AM EDT 10/07/2023 4:18 AM EDT Ayana Summers MD LAB BLOOD BANK PAULA T ORDERABLES Performing Organization Address City/[facility]/ZIP Co de Phone Number LABORATORY [facility] BLOOD [address] [address] * (ABNORMAL) PT INR (10/07/2023 3:44 AM EDT) Prothrombin Time 16.1(H) 11.6 - 15.2 seconds 10/07/2023 4:36 AM EDT LABORATORY [facility] INR 1.3(H) 0.8 - 1.2 10/07/2023 4:36 AM EDT LABORATORY [facility] Blood Venous blood specimen / Unknown Venipuncture / Unknown 10/07/2023 3:44 AM EDT 10/07/2023 4:18 AM EDT Narrative LABORATORY [facility] - 10/07/2023 4:36 AM EDT Warfarin Therapy INR: 2.0-3.0 conventional anticoagulation INR: 2.5-3.5 high intensity anticoagulation Ayana Summers MD LAB BLOOD ORDERABL ES Performing Organization Address [facility] Phone Number LABORATORY [address] [address] * (ABNORMAL) PROCALCITONIN (10/07/2023 3:44 AM EDT) Pathologist [facility] Procalcitonin 0.69(H) <0.10 ng/mL 10/07/2023 5:13 AM EDT LABORATORY [facility] Blood Venous blood specimen / Unknown Venipuncture / Unknown 10/07/2023 3:44 AM EDT 10/07/2023 4:18 AM EDT Narrative LABORATORY [facility] - 10/07/2023 5:13 AM EDT Less than 0.5 ng/mL: Low risk for progression to sepsis. Review patients condition for localized infections. 0.5 to 2.0 ng/mL: Intermediate risk for progresion to sepsis. Review underlying conditions. Recommend repeat PCT after 6 hours has elapsed. Greater than 2.0 ng/mL: high risk for progression to sepsis unless other causes are known. Ayana Summers MD LAB BLOOD ORDERABL ES Performing Organization Address [facility]/ZIP Co de Phone Number LABORATORY [address] [phone] * CALCIUM, IONIZED (10/07/2023 3:44 AM EDT) Pathologist [facility] Calcium, Ionized 1.16 1.13 - 1.32 mmol/L 10/07/2023 5:26 AM EDT LABORATORY [facility] Comment:This test was develo ped and its performance characteristics dtermined by [employer]. It has not been cleared or approved by the [place] Food and Drug Administration Blood Venous blood specimen / Unknown Venipuncture / Unknown 10/07/2023 3:44 AM EDT 10/07/2023 4:18 AM EDT Ayana Summers MD LAB BLOOD ORDERABL ES LABORATORY [address] [phone] * (ABNORMAL) CBC (10/07/2023 3:44 AM EDT) Pathologist [facility] WBC 15.88(H) 4.00 - 10.80 K/uL 10/07/2023 4:21 AM EDT LABORATORY [facility] RBC 2.85 3.85 - 5.15 M/uL 10/07/2023 4:21 AM EDT LABORATORY [facility] HGB 8.0(L) 12.0 - 15.3 g/dL 10/07/2023 4:21 AM EDT LABORATORY [facility] HCT 25.1(L) 36.0 - 45.2 % 10/07/2023 4:21 AM EDT LABORATORY [facility] MCV 88.1 81.5 - 97.5 fL 10/07/2023 4:21 AM EDT LABORATORY [facility] MCH 28.1 27.0 - 34.0 pg 10/07/2023 4:21 AM EDT LABORATORY [facility] MCHC 31.9 32.0 - 36.0 g/dL 10/07/2023 4:21 AM EDT LABORATORY [facility] RDW 15.0 11.5 - 15.5 % 10/07/2023 4:21 AM EDT LABORATORY [facility] PLT 321 140 - 400 K/uL 10/07/2023 4:21 AM EDT LABORATORY GL MPV 11.2 6.6 - 11.1 fL 10/07/2023 4:21 AM EDT LABORATORY [facility] nRBCs 0 <=0 /100 WBCs 10/07/2023 4:21 AM EDT LABORATORY [facility] Blood Venous blood specimen / Unknown Venipuncture / Unknown 10/07/2023 3:44 AM EDT 10/07/2023 4:18 AM EDT Ayana Summers MD LAB BLOOD ORDERABL ES Performing Organization Address [facility] Co de Phone Number LABORATORY [address] [phone] * (ABNORMAL) PHOSPHORUS (10/07/2023 3:44 AM EDT) Phosphorus 5.2(H) 2.5 - 4.8 mg/dL 10/07/2023 4:37 AM EDT LABORATORY GL Blood Venous blood specimen / Unknown Venipuncture / Unknown 10/07/2023 3:44 AM EDT 10/07/2023 4:18 AM EDT Ayana Summers MD LAB BLOOD ORDERABL ES Performing Organization Address [facility] de Phone Number LABORATORY [address] [phone] * MAGNESIUM (10/07/2023 3:44 AM EDT) Magnesium 1.8 1.5 - 2.6 mg/dL 10/07/2023 4:37 AM EDT LABORATORY GL Blood Venous blood specimen / Unknown Venipuncture / Unknown 10/07/2023 3:44 AM EDT 10/07/2023 4:18 AM EDT Ayana Summers MD LAB BLOOD ORDERABL ES Performing Organization Address [facility] Co de Phone Number LABORATORY [address] [phone] * (ABNORMAL) BASIC METABOLIC PANEL (10/07/2023 3:44 AM EDT) BUN 108(H) 6 - 20 mg/dL 10/07/2023 4:37 AM EDT LABORATORY [facility] Creatinine 3.0(H) 0.5 - 1.0 mg/dL 10/07/2023 4:37 AM EDT LABORATORY [facility] Estimated Glomerular Filtration Rate 17(L) >=60 mL/min 10/07/2023 4:37 AM EDT LABORATORY [facility] Comment:eGFR is calculated b ased on the CKD-EPI 2020 equation. Sodium 131(L) 135 - 146 mmol/L 10/07/2023 4:37 AM EDT LABORATORY [facility] Potassium 3.7 3.5 - 5.1 mmol/L 10/07/2023 4:37 AM EDT LABORATORY [facility] Chloride 94(L) 98 - 107 mmol/L 10/07/2023 4:37 AM EDT LABORATORY [facility] CO2 24 22 - 32 mmol/L 10/07/2023 4:37 AM EDT LABORATORY [facility] Anion Gap 13 7 - 15 mmol/L 10/07/2023 4:37 AM EDT LABORATORY [facility] Glucose 131(H) 70 - 120 mg/dL 10/07/2023 4:37 AM EDT LABORATORY [facility] Calcium 8.4 8.4 - 10.2 mg/dL 10/07/2023 4:37 AM EDT LABORATORY [facility] Blood Venous blood specimen / Unknown Venipuncture / Unknown 10/07/2023 3:44 AM EDT 10/07/2023 4:18 AM EDT Ayana Summers MD LAB BLOOD ORDERABL ES LABORATORY GL [address] [place] [address] * (ABNORMAL) GLUCOSE METER, POINT OF CARE (10/06/2023 9:29 PM EDT) Glucose Meter 157(H) 70 - 120 mg/dL 10/06/2023 9:33 PM EDT [facility] Blood Whole blood specimen / Unknown 10/06/2023 9:29 PM EDT 10/06/2023 9:33 PM EDT Ayana Summers MD LAB POINT OF CARE TEST DOCKED DEVICE UNSOLICITED RESULTS Performing Organization Address [facility] de Phone Number [facility] [address] [facility] [place] [address] * (ABNORMAL) GLUCOSE METER, POINT OF CARE (10/06/2023 4:32 PM EDT) Glucose Meter 203(H) 70 - 120 mg/dL 10/06/2023 9:33 PM EDT [facility] Blood Whole blood specimen / Unknown 10/06/2023 4:32 PM EDT 10/06/2023 9:33 PM EDT Ayana Summers MD LAB POINT OF CARE TEST DOCKED DEVICE UNSOLICITED RESULTS Performing Organization Address [facility] Phone Number [facility] [address] [place] [address] * (ABNORMAL) GLUCOSE METER, POINT OF CARE (10/06/2023 11:36 AM EDT) Glucose Meter 150(H) 70 - 120 mg/dL 10/06/2023 11:56 AM EDT [facility] Blood Whole blood specimen / Unknown 10/06/2023 11:36 AM EDT 10/06/2023 11:56 AM EDT Ayana Summers MD LAB POINT OF CARE TEST DOCKED DEVICE UNSOLICITED RESULTS Performing Organization Address [facility] de Phone Number [facility] [address] [place] [address] * XR CHEST 1 VIEW (10/06/2023 8:38 AM EDT) Anatomical Region Laterality Modality Chest Digital Radiogra phy 10/06/2023 2:16 PM EDT Impressions 10/06/2023 2:14 PM EDT IMPRESSION Residual opacity in the lung doss with improved consolidations in the lung doss when compared to prior examination. Narrative 10/06/2023 2:14 PM EDT EXAM XR CHEST 1 VIEW- 10/06/2023 8:38 am HISTORY f/u hypoxia COMPARISON Chest x-ray 10/03/2023 and 08/19/2023 TECHNIQUE Portable semi-upright AP view of the chest was obtained. FINDINGS Catheters: None Tubes: None Foreign bodies: None seen Cardiac silhouette is enlarged. Mitral annular calcification noted. Calcification of the aortic knob. Increased vascularity in the lung doss. Interval improved aeration when compared to prior examination of 10/03/2023 with improved consolidation in the lung bases. Procedure Note Sophie Akins MD - 10/06/2023 EXAM XR CHEST 1 VIEW- 10/06/2023 8:38 am HISTORY f/u hypoxia COMPARISON Chest x-ray 10/03/2023 and 08/19/2023 TECHNIQUE Portable semi-upright AP view of the chest was obtained. FINDINGS Catheters: None Tubes: None Foreign bodies: None seen Cardiac silhouette is enlarged. Mitral annular calcification noted.Calcification of the aortic knob. Increased vascularity in the lungfields. Interval improved aeration when compared to prior examination of10/03/2023 with improved consolidation in the lung bases. IMPRESSION IMPRESSION Residual opacity in the lung doss with improved consolidations in thelung doss when compared to prior examination. Ayana Summers MD RADIOLOGY (RAD GEN ERAL) * GLUCOSE METER, POINT OF CARE (10/06/2023 8:16 AM EDT) Glucose Meter 112 70 - 120 mg/dL 10/06/2023 11:20 AM EDT [facility] Blood Whole blood specimen / Unknown 10/06/2023 8:16 AM EDT 10/06/2023 11:20 AM EDT Ayana Summers MD LAB POINT OF CARE TEST DOCKED DEVICE UNSOLICITED RESULTS [facility] [address] [facility] [place] [address] * (ABNORMAL) BNP, NT-PRO (10/06/2023 4:23 AM EDT) Pathologist [facility] BNP, NT-Pro 5,891(H) <300 pg/mL 10/06/2023 10:22 AM EDT LABORATORY [facility] Blood Venous blood specimen / Unknown Venipuncture / Unknown 10/06/2023 4:23 AM EDT 10/06/2023 4:50 AM EDT Narrative LABORATORY [facility] - 10/06/2023 10:22 AM EDT Exclude Heart Failure: <300 pg/mL Diagnose Heart Failure: Age <50 yr: >450 pg/mL 50-75 yr: >900 pg/mL >75 yr: >1800 pg/mL GFR is 30-59 mL/min: >1200 pg/mL or Age-adjusted values GFR <30 mL/min: do not use, not reliable Prognostic threshold: 1000 pg/mL Ayana Summers MD LAB BLOOD ORDERABL ES Performing Organization Address City/[facility]/ZIP Co de Phone Number LABORATORY [address] [address] * MAGNESIUM (10/06/2023 4:23 AM EDT) [facility] Magnesium 1.8 1.5 - 2.6 mg/dL 10/06/2023 9:04 AM EDT LABORATORY [facility] Blood Venous blood specimen / Unknown Venipuncture / Unknown 10/06/2023 4:23 AM EDT 10/06/2023 4:50 AM EDT Ayana Summers MD LAB BLOOD ORDERABL ES LABORATORY [address] [address] * (ABNORMAL) CRP (INFLAMMATORY MARKER) (10/06/2023 4:23 AM EDT) [facility] CRP (Inflammatory Marker) 139(H) <=5 mg/L 10/06/2023 9:04 AM EDT LABORATORY [facility] Blood Venous blood specimen / Unknown Venipuncture / Unknown 10/06/2023 4:23 AM EDT 10/06/2023 4:50 AM EDT Ayana Summers MD LAB BLOOD ORDERABL ES LABORATORY [address] [address] * (ABNORMAL) ERYTHROCYTE SEDIMENTATION RATE (ESR) (10/06/2023 4:23 AM EDT) ESR 51(H) <30 mm/hour 10/06/2023 12:09 PM EDT LABORATORY [facility] Blood Venous blood specimen / Unknown Venipuncture / Unknown 10/06/2023 4:23 AM EDT 10/06/2023 4:50 AM EDT Ayana Summers MD LAB BLOOD ORDERABL ES Performing Organization Address City/[facility]/ZIP Co de Phone Number LABORATORY [facility] [address] [place] [address] * (ABNORMAL) PROCALCITONIN (10/06/2023 4:23 AM EDT) Procalcitonin 0.98(H) <0.10 ng/mL 10/06/2023 9:10 AM EDT LABORATORY [facility] Blood Venous blood specimen / Unknown Venipuncture / Unknown 10/06/2023 4:23 AM EDT 10/06/2023 4:50 AM EDT Narrative LABORATORY [facility] - 10/06/2023 9:10 AM EDT Less than 0.5 ng/mL: Low risk for progression to sepsis. Review patients condition for localized infections. 0.5 to 2.0 ng/mL: Intermediate risk for progresion to sepsis. Review underlying conditions. Recommend repeat PCT after 6 hours has elapsed. Greater than 2.0 ng/mL: high risk for progression to sepsis unless other causes are known. Ayana Summers MD LAB BLOOD ORDERABL ES Performing Organization Address City/[facility]/ZIP Co de Phone Number LABORATORY [address] [phone] * (ABNORMAL) BASIC METABOLIC PANEL (10/06/2023 4:23 AM EDT) BUN 105(H) 6 - 20 mg/dL 10/06/2023 5:25 AM EDT LABORATORY GL Creatinine 3.1(H) 0.5 - 1.0 mg/dL 10/06/2023 5:25 AM EDT LABORATORY [facility] Estimated Glomerular Filtration Rate 16(L) >=60 mL/min 10/06/2023 5:25 AM EDT LABORATORY [facility] Comment:eGFR is calculated b ased on the CKD-EPI 2020 equation. Sodium 131(L) 135 - 146 mmol/L 10/06/2023 5:25 AM EDT LABORATORY [facility] Potassium 3.4(L) 3.5 - 5.1 mmol/L 10/06/2023 5:25 AM EDT LABORATORY [facility] Chloride 92(L) 98 - 107 mmol/L 10/06/2023 5:25 AM EDT LABORATORY [facility] CO2 25 22 - 32 mmol/L 10/06/2023 5:25 AM EDT LABORATORY [facility] Anion Gap 14 7 - 15 mmol/L 10/06/2023 5:25 AM EDT LABORATORY [facility] Glucose 162(H) 70 - 120 mg/dL 10/06/2023 5:25 AM EDT LABORATORY [facility] Calcium 8.4 8.4 - 10.2 mg/dL 10/06/2023 5:25 AM EDT LABORATORY GL Blood Venous blood specimen / Unknown Venipuncture / Unknown 10/06/2023 4:23 AM EDT 10/06/2023 4:50 AM EDT Dante Contreras DO LAB BLOOD ORDERAB LES LABORATORY [facility] [address] [place] [address] * (ABNORMAL) CBC (10/06/2023 4:23 AM EDT) WBC 13.13(H) 4.00 - 10.80 K/uL 10/06/2023 5:06 AM EDT LABORATORY GL RBC 2.60 3.85 - 5.15 M/uL 10/06/2023 5:06 AM EDT LABORATORY [facility] HGB 7.2(L) 12.0 - 15.3 g/dL 10/06/2023 5:06 AM EDT LABORATORY [facility] HCT 22.6(L) 36.0 - 45.2 % 10/06/2023 5:06 AM EDT LABORATORY [facility] MCV 86.9 81.5 - 97.5 fL 10/06/2023 5:06 AM EDT LABORATORY [facility] MCH 27.7 27.0 - 34.0 pg 10/06/2023 5:06 AM EDT LABORATORY [facility] MCHC 31.9 32.0 - 36.0 g/dL 10/06/2023 5:06 AM EDT LABORATORY [facility] RDW 14.9 11.5 - 15.5 % 10/06/2023 5:06 AM EDT LABORATORY [facility] PLT 276 140 - 400 K/uL 10/06/2023 5:06 AM EDT LABORATORY [facility] MPV 11.6 6.6 - 11.1 fL 10/06/2023 5:06 AM EDT LABORATORY [facility] nRBCs 0 <=0 /100 WBCs 10/06/2023 5:06 AM EDT LABORATORY [facility] Blood Venous blood specimen / Unknown Venipuncture / Unknown 10/06/2023 4:23 AM EDT 10/06/2023 4:50 AM EDT Dante [employer] LAB BLOOD ORDERAB LES LABORATORY [facility] [address] [place] [address] * (ABNORMAL) GLUCOSE METER, POINT OF CARE (10/05/2023 9:26 PM EDT) [employer] Signature Glucose Meter 219(H) 70 - 120 mg/dL 10/05/2023 9:31 PM EDT [facility] Blood Whole blood specimen / Unknown 10/05/2023 9:26 PM EDT 10/05/2023 9:31 PM EDT Dante Jamaal Diane DO LAB POINT OF CARE TEST DOCKED DEVICE UNSOLICITED RESULTS Performing Organization Address [facility] Co de Phone Number [facility] [address] [place] [address] * (ABNORMAL) GLUCOSE METER, POINT OF CARE (10/05/2023 4:29 PM EDT) Glucose Meter 158(H) 70 - 120 mg/dL 10/05/2023 4:35 PM EDT [facility] Blood Whole blood specimen / Unknown 10/05/2023 4:29 PM EDT 10/05/2023 4:35 PM EDT Dnate Contreras [employer] LAB POINT OF CARE TEST DOCKED DEVICE UNSOLICITED RESULTS Performing Organization Address [facility] Phone Number [facility] [address] [place] [address] * (ABNORMAL) CULTURE, RESPIRATORY, LOWER, AEROBIC (10/05/2023 1:52 PM EDT) [facility] Culture Growth Light growth normal genevieve 10/07/2023 9:28 AM EDT LABORATORY [facility] Stain Description Purulent specimen, >25 neutrophils/low power microscopic field.(A) 10/07/2023 9:28 AM EDT LABORATORY [facility] Stain Description Moderate Polymorphonuclear leukocytes(A) 10/07/2023 9:28 AM EDT LABORATORY [facility] Stain Description Rare Yeast(A) 10/07/2023 9:28 AM EDT LABORATORY [facility] Lower Respiratory Sputum specimen / Unknown Non-blood Collection / Unknown 10/05/2023 1:52 PM EDT 10/05/2023 1:58 PM EDT DanteHipFlat DO LAB MICRO - GENER AL ORDERABLES Performing Organization Address [facility] Co de Phone Number LABORATORY [facility] [address] [place] [address] * STREPTOCOCCUS PNEUMONIAE ANTIGENS, URINE (10/05/2023 1:52 PM EDT) Pathologist [facility] S. Pneumoniae Ag, Urine Not Detected Not Detected 10/07/2023 6:48 PM EDT [employer] [place] Comment: Test Performed at: [employer] [facility] [address] [place] [address] Paco Negrete M.D., Ph.D.,Director of Laboratories Urine Non-blood Collection / Unknown 10/05/2023 1:52 PM EDT 10/05/2023 1:58 PM EDT [employer] LAB URINE ORDERAB LES Performing Organization Address City/[facility]/ZIP Co de Phone Number [facility] [place] [address] [place] [address] * LEGIONELLA ANTIGEN, URINE (10/05/2023 1:52 PM EDT) Legionella Antigen, Urine Negative Negative 10/06/2023 11:25 AM EDT LABORATORY [facility] Comment:Presumptive negative for L. pneumophila serogroup 1 antigens. A negative result does not rule out the possibility of Legionella infection due to other serogroups or species of Legionella. Urine Urine specimen obtained by clean catch procedure / Unknown Non-blood Collection / Unknown 10/05/2023 1:52 PM EDT 10/05/2023 1:58 PM EDT [facility] URINE ORDERAB LES Performing Organization Address [facility] Co de Phone Number LABORATORY [address] [address] * (ABNORMAL) GLUCOSE METER, POINT OF CARE (10/05/2023 11:50 AM EDT) Glucose Meter 205(H) 70 - 120 mg/dL 10/05/2023 12:47 PM EDT [facility] Blood Whole blood specimen / Unknown 10/05/2023 11:50 AM EDT 10/05/2023 12:47 PM EDT [facility] POINT OF CARE TEST DOCKED DEVICE UNSOLICITED RESULTS [facility] [address] [place] [address] * (ABNORMAL) GLUCOSE METER, POINT OF CARE (10/05/2023 8:07 AM EDT) [facility] Glucose Meter 149(H) 70 - 120 mg/dL 10/05/2023 8:50 AM EDT [facility] Blood Whole blood specimen / Unknown 10/05/2023 8:07 AM EDT 10/05/2023 8:50 AM EDT [facility] DO LAB POINT OF CARE TEST DOCKED DEVICE UNSOLICITED RESULTS [facility] [address] [place] [phone] * MAGNESIUM (10/05/2023 6:05 AM EDT) [facility] Magnesium 1.8 1.5 - 2.6 mg/dL 10/05/2023 6:30 AM EDT LABORATORY [facility] Blood Venous blood specimen / Unknown Venipuncture / Unknown 10/05/2023 6:05 AM EDT 10/05/2023 6:10 [address] [facility] DO LAB BLOOD ORDERAB LES LABORATORY [address] [phone] * (ABNORMAL) CBC (10/05/2023 6:05 AM EDT) [facility] Signature WBC 14.16(H) 4.00 - 10.80 K/uL 10/05/2023 6:13 AM EDT LABORATORY GL RBC 2.71 3.85 - 5.15 M/uL 10/05/2023 6:13 AM EDT LABORATORY GL HGB 7.8(L) 12.0 - 15.3 g/dL 10/05/2023 6:13 AM EDT LABORATORY GL HCT 23.5(L) 36.0 - 45.2 % 10/05/2023 6:13 AM EDT LABORATORY GL MCV 86.7 81.5 - 97.5 fL 10/05/2023 6:13 AM EDT LABORATORY [facility] MCH 28.8 27.0 - 34.0 pg 10/05/2023 6:13 AM EDT LABORATORY [facility] MCHC 33.2 32.0 - 36.0 g/dL 10/05/2023 6:13 AM EDT LABORATORY [facility] RDW 15.0 11.5 - 15.5 % 10/05/2023 6:13 AM EDT LABORATORY GL PLT 282 140 - 400 K/uL 10/05/2023 6:13 AM EDT LABORATORY GL MPV 10.8 6.6 - 11.1 fL 10/05/2023 6:13 AM EDT LABORATORY GL nRBCs 0 <=0 /100 WBCs 10/05/2023 6:13 AM EDT LABORATORY [facility] Blood Venous blood specimen / Unknown Venipuncture / Unknown 10/05/2023 6:05 AM EDT 10/05/2023 6:10 AM EDT Dante Contreras DO LAB BLOOD ORDERAB LES LABORATORY [facility] [address] [place] [address] * (ABNORMAL) BASIC METABOLIC PANEL (10/05/2023 6:05 AM EDT) BUN 109(H) 6 - 20 mg/dL 10/05/2023 6:30 AM EDT LABORATORY GL[facility] Creatinine 3.4(H) 0.5 - 1.0 mg/dL 10/05/2023 6:30 AM EDT LABORATORY [facility] Estimated Glomerular Filtration Rate 15(L) >=60 mL/min 10/05/2023 6:30 AM EDT LABORATORY GL Comment:eGFR is calculated b ased on the CKD-EPI 2020 equation. Sodium 134(L) 135 - 146 mmol/L 10/05/2023 6:30 AM EDT LABORATORY [facility] Potassium 3.6 3.5 - 5.1 mmol/L 10/05/2023 6:30 AM EDT LABORATORY [facility] Chloride 94(L) 98 - 107 mmol/L 10/05/2023 6:30 AM EDT LABORATORY [facility] CO2 24 22 - 32 mmol/L 10/05/2023 6:30 AM EDT LABORATORY GL Anion Gap 16(H) 7 - 15 mmol/L 10/05/2023 6:30 AM EDT LABORATORY [facility] Glucose 169(H) 70 - 120 mg/dL 10/05/2023 6:30 AM EDT LABORATORY GL Calcium 8.6 8.4 - 10.2 mg/dL 10/05/2023 6:30 AM EDT LABORATORY [facility] Blood Venous blood specimen / Unknown Venipuncture / Unknown 10/05/2023 6:05 AM EDT 10/05/2023 6:10 AM EDT [facility] LAB BLOOD ORDERAB LES LABORATORY [address] [phone] * (ABNORMAL) GLUCOSE METER, POINT OF CARE (10/04/2023 9:28 PM EDT) Glucose Meter 173(H) 70 - 120 mg/dL 10/04/2023 9:36 PM EDT [facility] Blood Whole blood specimen / Unknown 10/04/2023 9:28 PM EDT 10/04/2023 9:36 PM EDT [facility] LAB POINT OF CARE TEST DOCKED DEVICE UNSOLICITED RESULTS [facility] [address] [place] [phone] * MRSA SCREEN, PCR (10/04/2023 3:01 PM EDT) MRSA PCR Result Negative Negative 8:02 PM EDT LABORATORY C Comment:No Methicillin resis tant Staphylococcus aureus detected by PCR (amplified probe). Upper Respiratory Swab of internal nose / Unknown Non-blood Collection / Unknown 10/04/2023 3:01 PM EDT 10/04/2023 3:10 PM EDT [facility] LAB MICRO - GENER AL ORDERABLES LABORATORY [facility] [address] [place] [address] * (ABNORMAL) GLUCOSE METER, POINT OF CARE (10/04/2023 12:18 PM EDT) [facility] Signature Glucose Meter 122(H) 70 - 120 mg/dL 10/04/2023 12:35 PM EDT [facility] Blood Whole blood specimen / Unknown 10/04/2023 12:18 PM EDT 10/04/2023 12:35 PM EDT [facility] LAB POINT OF CARE TEST DOCKED DEVICE UNSOLICITED RESULTS Performing Organization Address [facility] Co de Phone Number [facility] [address] [place] [address] * MRI FOOT RIGHT WO CONTRAST (10/04/2023 11:56 AM EDT) Anatomical Region Laterality Modality Lower Extremity, Foot Magnetic R esonance 10/04/2023 1:13 PM EDT Impressions 10/04/2023 1:10 PM EDT IMPRESSION 1. Osteomyelitis of the calcaneal tuberosity, with a large soft tissue wound/ulcer and sinus tract at the plantar aspect of the heel. 2. High-grade tear/rupture of the plantar fascia. 3. Near-complete rupture of the Achilles tendon. Narrative 10/04/2023 1:10 PM EDT EXAM MRI FOOT RIGHT WO CONTRAST-RT 10/04/2023 11:56 am HISTORY Provided clinical history: "osteo heel" COMPARISON Right foot radiographs dated June 03, 2023 and right ankle MRI dated June 04, 2023. TECHNIQUE Multiplanar, multi-sequence MRI of the right hindfoot/ankle was performed without IV contrast. FINDINGS There is a large soft tissue wound/ulcer at the plantar aspect of the heel, with a tract that extends to the plantar surface of the calcaneal tuberosity. There is extensive bone marrow enhancement and loss of T1 marrow signal within the tuberosity, consistent with osteomyelitis. There is also prominent edema in the soft tissues surrounding the ulcer. High-grade tear/rupture of the plantar fascia, including a complete tear of the central band, partial tear of the lateral band, and probable complete tear of the medial band. There is also a near complete rupture of the Achilles tendon at its insertion, with only a thin band of tendon fibers possibly remaining intact. Diffuse edema and atrophy of the intrinsic foot musculature. Procedure Note Bigger, Antony Gaona MD - 10/04/2023 EXAM MRI FOOT RIGHT WO CONTRAST-RT 10/04/2023 11:56 am HISTORY Provided clinical history: "osteo heel" COMPARISON Right foot radiographs dated June 03, 2023 and right ankle MRI datedM2023. TECHNIQUE Multiplanar, multi-sequence MRI of the right hindfoot/ankle was performedwithout IV contrast. FINDINGS There is a large soft tissue wound/ulcer at the plantar aspect of theheel, with a tract that extends to the plantar surface of the calcanealtuberosity. There is extensive bone marrow enhancement and loss of [id number] signal within the tuberosity, consistent with osteomyelitis. Thereis also prominent edema in the soft tissues surrounding the ulcer. High-grade tear/rupture of the plantar fascia, including a complete tearof the central band, partial tear of the lateral band, and probablecomplete tear of the medial band. There is also a near complete ruptureof the Achilles tendon at its insertion, with only a thin band of tendonfibers possibly remaining intact. Diffuse edema and atrophy of the intrinsic foot musculature. IMPRESSION IMPRESSION 1. Osteomyelitis of the calcaneal tuberosity, with a large soft tissuewound/ulcer and sinus tract at the plantar aspect of the heel. 2. High-grade tear/rupture of the plantar fascia. 3. Near-complete rupture of the Achilles tendon. Dante Contreras DO RAD MRI-MRA * (ABNORMAL) GLUCOSE METER, POINT OF CARE (10/04/2023 8:05 AM EDT) [facility] Signature Glucose Meter 140(H) 70 - 120 mg/dL 10/04/2023 8:19 AM EDT [facility] Blood Whole blood specimen / Unknown 10/04/2023 8:05 AM EDT 10/04/2023 8:19 AM ED[address] [facility] DO LAB POINT OF CARE TEST DOCKED DEVICE UNSOLICITED RESULTS Performing Organization Address [facility] Co de Phone Number [facility] [address] [place] [address] * (ABNORMAL) PROCALCITONIN (10/04/2023 4:41 AM EDT) Procalcitonin 2.24(H) <0.10 ng/mL 10/04/2023 2:33 PM EDT LABORATORY [facility] Blood Venous blood specimen / Unknown Venipuncture / Unknown 10/04/2023 4:41 AM EDT 10/04/2023 4:49 AM EDT Narrative LABORATORY [facility] - 10/04/2023 2:33 PM EDT Less than 0.5 ng/mL: Low risk for progression to sepsis. Review patients condition for localized infections. 0.5 to 2.0 ng/mL: Intermediate risk for progresion to sepsis. Review underlying conditions. Recommend repeat PCT after 6 hours has elapsed. Greater than 2.0 ng/mL: high risk for progression to sepsis unless other causes are known. Dante JamaalMulliganPlus DO LAB BLOOD ORDERAB LES Performing Organization Address [facility] de Phone Number LABORATORY [address] [phone] * (ABNORMAL) HEMOGLOBIN A1C (10/04/2023 4:41 AM EDT) Hemoglobin A1C 7.8(H) 4.0 - 5.6 % 10/04/2023 5:31 PM EDT LABORATORY [facility] Comment:The use of HbA1c to monitor glycemic status is based on normal hemoglobin and HbA composition. This test should not be used in patients with abnormal hemoglobin that affects the half life of the red blood cell or the in vivo glycation rates. Estimated Average Glucose 177(H) <126 mg/dL 10/04/2023 5:31 PM EDT LABORATORY [facility] Blood Venous blood specimen / Unknown Venipuncture / Unknown 10/04/2023 4:41 AM EDT 10/04/2023 4:49 AM EDT Aaln Lozano PA-C LAB BLOOD ORDERABLES LABORATORY [facility] [address] [place] [address] * (ABNORMAL) BASIC METABOLIC PANEL (10/04/2023 4:41 AM EDT) BUN 108(H) 6 - 20 mg/dL 10/04/2023 5:14 AM EDT LABORATORY [facility] Creatinine 3.4(H) 0.5 - 1.0 mg/dL 10/04/2023 5:14 AM EDT LABORATORY [facility] Estimated Glomerular Filtration Rate 15(L) >=60 mL/min 10/04/2023 5:14 AM EDT LABORATORY [facility] Comment:eGFR is calculated b ased on the CKD-EPI 2020 equation. Sodium 131(L) 135 - 146 mmol/L 10/04/2023 5:14 AM EDT LABORATORY [facility] Potassium 3.6 3.5 - 5.1 mmol/L 10/04/2023 5:14 AM EDT LABORATORY [facility] Chloride 92(L) 98 - 107 mmol/L 10/04/2023 5:14 AM EDT LABORATORY [facility] CO2 24 22 - 32 mmol/L 10/04/2023 5:14 AM EDT LABORATORY [facility] Anion Gap 15 7 - 15 mmol/L 10/04/2023 5:14 AM EDT LABORATORY [facility] Glucose 179(H) 70 - 120 mg/dL 10/04/2023 5:14 AM EDT LABORATORY [facility] Calcium 8.3(L) 8.4 - 10.2 mg/dL 10/04/2023 5:14 AM EDT LABORATORY [facility] Blood Venous blood specimen / Unknown Venipuncture / Unknown 10/04/2023 4:41 AM EDT 10/04/2023 4:49 AM EDT Alan Lozano PA-C LAB BLOOD ORDERABLES LABORATORY [address] [address] * (ABNORMAL) CBC (10/04/2023 4:41 AM EDT) WBC 15.11(H) 4.00 - 10.80 K/uL 10/04/2023 4:58 AM EDT LABORATORY [facility] RBC 2.66 3.85 - 5.15 M/uL 10/04/2023 4:58 AM EDT LABORATORY [facility] HGB 7.6(L) 12.0 - 15.3 g/dL 10/04/2023 4:58 AM EDT LABORATORY [facility] HCT 23.1(L) 36.0 - 45.2 % 10/04/2023 4:58 AM EDT LABORATORY [facility] MCV 86.8 81.5 - 97.5 fL 10/04/2023 4:58 AM EDT LABORATORY [facility] MCH 28.6 27.0 - 34.0 pg 10/04/2023 4:58 AM EDT LABORATORY [facility] MCHC 32.9 32.0 - 36.0 g/dL 10/04/2023 4:58 AM EDT LABORATORY [facility] RDW 15.0 11.5 - 15.5 % 10/04/2023 4:58 AM EDT LABORATORY [facility] PLT 283 140 - 400 K/uL 10/04/2023 4:58 AM EDT LABORATORY [facility] MPV 10.8 6.6 - 11.1 fL 10/04/2023 4:58 AM EDT LABORATORY [facility] nRBCs 0 <=0 /100 WBCs 10/04/2023 4:58 AM EDT LABORATORY [facility] Blood Venous blood specimen / Unknown Venipuncture / Unknown 10/04/2023 4:41 AM EDT 10/04/2023 4:49 AM EDT Alan Lozano PA-C LAB BLOOD ORDERABLES LABORATORY [facility] [address] [place] [address] * (ABNORMAL) GLUCOSE METER, POINT OF CARE (10/03/2023 9:27 PM EDT) Glucose Meter 225(H) 70 - 120 mg/dL 10/03/2023 9:31 PM EDT [facility] Blood Whole blood specimen / Unknown 10/03/2023 9:27 PM EDT 10/03/2023 9:31 PM EDT Kali Mooney MD LAB POINT OF CARE TEST DOCKED DEVICE UNSOLICITED RESULTS Performing Organization Address City/[facility]/ZIP Co de Phone Number [facility] [address] [place] [phone] * CULTURE, BLOOD (10/03/2023 8:29 PM EDT) Blood Culture Growth No growth 10/08/2023 9:02 PM EDT LABORATORY [facility] Blood Venous blood specimen / Unknown Venipuncture / Unknown 10/03/2023 8:29 PM EDT 10/03/2023 8:32 PM EDT Alan Lozano PA-C LAB MICRO - GENERAL ORDERABLES Performing Organization Address City/[facility]/ZIP Co de Phone Number LABORATORY [address] [phone] * CULTURE, BLOOD (10/03/2023 8:26 PM EDT) Pathologist [facility] Blood Culture Growth No growth 10/08/2023 9:02 PM EDT LABORATORY [facility] Blood Venous blood specimen / Unknown Venipuncture / Unknown 10/03/2023 8:26 PM EDT 10/03/2023 8:32 PM EDT Alan Lozano PA-C LAB MICRO - GENERAL ORDERABLES Performing Organization Address City/[facility] Co de Phone Number LABORATORY [address] [address] * (ABNORMAL) TROPONIN T, HIGH SENSITIVITY (10/03/2023 5:44 PM EDT) Troponin T, High Sensitivity 184(HH) <=14 ng/L 10/03/2023 6:16 PM EDT LABORATORY [facility] Blood Venous blood specimen / Unknown Venipuncture / Unknown 10/03/2023 5:44 PM EDT 10/03/2023 5:47 PM EDT Deng Padilla DO LAB BLOOD ORDERABLES LABORATORY [facility] [address] [place] [address] * (ABNORMAL) BLOOD GAS, VENOUS (10/03/2023 4:36 PM EDT) Temperature 37.0 C 10/03/2023 4:45 PM EDT LABORATORY [facility] pH, Venous 7.381 7.320 - 7.430 units 10/03/2023 4:45 PM EDT LABORATORY [facility] pCO2, Venous 42.1 40.0 - 60.0 mmHg 10/03/2023 4:45 PM EDT LABORATORY [facility] pO2, Venous 33.8 25.0 - 50.0 mmHg 10/03/2023 4:45 PM EDT LABORATORY [facility] Base Excess, Venous -0.2 -2.0 - 2.0 mmol/L 10/03/2023 4:45 PM EDT LABORATORY [facility] HGB 9.6(L) 12.0 - 15.3 g/dL 10/03/2023 4:45 PM EDT LABORATORY [facility] Oxyhemoglobin, Venous 53.5 40.0 - 85.0 % total Hgb 10/03/2023 4:45 PM EDT LABORATORY [facility] Carboxyhemoglobi n, Whole Blood 1.7(H) <=1.5 % total Hgb 10/03/2023 4:45 PM EDT LABORATORY [facility] Comment:Smokers: 0-9.0 % Methemoglobin, Whole Blood 0.4 <=1.5 % total Hgb 10/03/2023 4:45 PM EDT LABORATORY [facility] Reduced Hemoglobin, Venous 44.4 % total Hgb 10/03/2023 4:45 PM EDT LABORATORY [facility] O2 Content, Venous 7.2 7.0 - 18.0 %vol 10/03/2023 4:45 PM EDT LABORATORY [facility] Bicarbonate, Whole Blood 24.4 23.0 - 31.0 mmol/L 10/03/2023 4:45 PM EDT LABORATORY [facility] Blood Venous blood specimen / Unknown Venipuncture / Unknown 10/03/2023 4:36 PM EDT 10/03/2023 4:40 PM EDT Deng Padilla DO LAB BLOOD ORDERABLES LABORATORY [facility] [address] [place] [address] * (ABNORMAL) DIFFERENTIAL, AUTOMATED (10/03/2023 4:36 PM EDT) WBC 18.21(H) 4.00 - 10.80 K/uL 10/03/2023 4:43 PM EDT LABORATORY [facility] Neutrophils % 88.1(H) 40.0 - 75.0 % 10/03/2023 4:43 PM EDT LABORATORY [facility] Lymphocytes % 6.0(L) 18.0 - 42.0 % 10/03/2023 4:43 PM EDT LABORATORY [facility] Monocytes % 4.5 1.0 - 11.0 % 10/03/2023 4:43 PM EDT LABORATORY GL Eosinophils % 0.3 0.0 - 6.0 % 10/03/2023 4:43 PM EDT LABORATORY GL Basophils % 0.3 0.0 - 2.0 % 10/03/2023 4:43 PM EDT LABORATORY GL Immature Granulocytes % 0.8 0.0 - 2.0 % 10/03/2023 4:43 PM EDT LABORATORY [facility] Absolute Neutrophils 16.05(H) 1.80 - 7.70 K/uL 10/03/2023 4:43 PM EDT LABORATORY GL Absolute Lymphocytes 1.09 1.00 - 4.80 K/ul 10/03/2023 4:43 PM EDT LABORATORY GL Absolute Monocytes 0.82 0.00 - 1.10 K/uL 10/03/2023 4:43 PM EDT LABORATORY GL Absolute Eosinophils 0.05 0.00 - 0.70 K/uL 10/03/2023 4:43 PM EDT LABORATORY GL Absolute Basophils 0.05 0.00 - 0.20 K/uL 10/03/2023 4:43 PM EDT LABORATORY GL Absolute Immature Granulocytes 0.15 0.00 - 0.20 K/uL 10/03/2023 4:43 PM EDT LABORATORY [facility] Blood Venous blood specimen / Unknown Venipuncture / Unknown 10/03/2023 4:36 PM EDT 10/03/2023 4:40 PM EDT Antony Franco DO LAB BLOOD ORDERABLES LABORATORY [address] [address] * (ABNORMAL) CBC (10/03/2023 4:36 PM EDT) WBC 18.21(H) 4.00 - 10.80 K/uL 10/03/2023 4:43 PM EDT LABORATORY [facility] RBC 3.16 3.85 - 5.15 M/uL 10/03/2023 4:43 PM EDT LABORATORY [facility] HGB 9.1(L) 12.0 - 15.3 g/dL 10/03/2023 4:43 PM EDT LABORATORY [facility] HCT 27.8(L) 36.0 - 45.2 % 10/03/2023 4:43 PM EDT LABORATORY [facility] MCV 88.0 81.5 - 97.5 fL 10/03/2023 4:43 PM EDT LABORATORY [facility] MCH 28.8 27.0 - 34.0 pg 10/03/2023 4:43 PM EDT LABORATORY [facility] MCHC 32.7 32.0 - 36.0 g/dL 10/03/2023 4:43 PM EDT LABORATORY [facility] RDW 15.1 11.5 - 15.5 % 10/03/2023 4:43 PM EDT LABORATORY [facility] PLT 306 140 - 400 K/uL 10/03/2023 4:43 PM EDT LABORATORY [facility] MPV 10.8 6.6 - 11.1 fL 10/03/2023 4:43 PM EDT LABORATORY [facility] nRBCs 0 <=0 /100 WBCs 10/03/2023 4:43 PM EDT LABORATORY [facility] Blood Venous blood specimen / Unknown Venipuncture / Unknown 10/03/2023 4:36 PM EDT 10/03/2023 4:40 PM EDT Antony Franco DO LAB BLOOD ORDERABLES LABORATORY [address] [id number] * (ABNORMAL) PT INR (10/03/2023 4:36 PM EDT) [facility] Prothrombin Time 17.8(H) 11.6 - 15.2 seconds 10/03/2023 4:56 PM EDT LABORATORY [facility] INR 1.5(H) 0.8 - 1.2 10/03/2023 4:56 PM EDT LABORATORY [facility] Blood Venous blood specimen / Unknown Venipuncture / Unknown 10/03/2023 4:36 PM EDT 10/03/2023 4:40 PM EDT Narrative LABORATORY [facility] - 10/03/2023 4:56 PM EDT Warfarin Therapy INR: 2.0-3.0 conventional anticoagulation INR: 2.5-3.5 high intensity anticoagulation Antony Sydnie Joan KRISHNAN LAB BLOOD ORDERABLES Performing Organization Address City/[facility]/ZIP Co de Phone Number LABORATORY [address] [id number] * (ABNORMAL) TROPONIN T, HIGH SENSITIVITY (10/03/2023 4:36 PM EDT) [facility] Troponin T, High Sensitivity 191(HH) <=14 ng/L 10/03/2023 5:02 PM EDT LABORATORY [facility] Blood Venous blood specimen / Unknown Venipuncture / Unknown 10/03/2023 4:36 PM EDT 10/03/2023 4:40 PM EDT Antony Franco DO LAB BLOOD ORDERABLES LABORATORY [address] [phone] * (ABNORMAL) BNP, NT-PRO (10/03/2023 4:36 PM EDT) BNP, NT-Pro 10,003(H) <300 pg/mL 10/03/2023 5:11 PM EDT LABORATORY [facility] Blood Venous blood specimen / Unknown Venipuncture / Unknown 10/03/2023 4:36 PM EDT 10/03/2023 4:40 PM EDT Narrative LABORATORY GL - 10/03/2023 5:11 PM EDT Exclude Heart Failure: <300 pg/mL Diagnose Heart Failure: Age <50 yr: >450 pg/mL 50-75 yr: >900 pg/mL >75 yr: >1800 pg/mL GFR is 30-59 mL/min: >1200 pg/mL or Age-adjusted values GFR <30 mL/min: do not use, not reliable Prognostic threshold: 1000 pg/mL Antony Franco DO LAB BLOOD ORDERABLES LABORATORY [address] [address] * (ABNORMAL) COMPREHENSIVE METABOLIC PANEL (10/03/2023 4:36 PM EDT) Pathologist [facility] BUN 103(H) 6 - 20 mg/dL 10/03/2023 5:21 PM EDT LABORATORY [facility] Creatinine 3.5(H) 0.5 - 1.0 mg/dL 10/03/2023 5:21 PM EDT LABORATORY GL Estimated Glomerular Filtration Rate 14(L) >=60 mL/min 10/03/2023 5:21 PM EDT LABORATORY GL Comment:eGFR is calculated b ased on the CKD-EPI 2020 equation. Sodium 130(L) 135 - 146 mmol/L 10/03/2023 5:21 PM EDT LABORATORY [facility] Potassium 4.1 3.5 - 5.1 mmol/L 10/03/2023 5:21 PM EDT LABORATORY [facility] Chloride 90(L) 98 - 107 mmol/L 10/03/2023 5:21 PM EDT LABORATORY [facility] CO2 22 22 - 32 mmol/L 10/03/2023 5:21 PM EDT LABORATORY GL Anion Gap 18(H) 7 - 15 mmol/L 10/03/2023 5:21 PM EDT LABORATORY [facility] Glucose 219(H) 70 - 120 mg/dL 10/03/2023 5:21 PM EDT LABORATORY [facility] Albumin 2.6(L) 3.8 - 5.0 g/dL 10/03/2023 5:21 PM EDT LABORATORY [facility] AST 39(H) 10 - 35 U/L 10/03/2023 5:21 PM EDT LABORATORY [facility] Alkaline Phosphatase 343(H) 35 - 130 U/L 10/03/2023 5:21 PM EDT LABORATORY [facility] Bilirubin, Total 0.4 <=1.2 mg/dL 10/03/2023 5:21 PM EDT LABORATORY [facility] Calcium 8.9 8.4 - 10.2 mg/dL 10/03/2023 5:21 PM EDT LABORATORY [facility] Protein 7.1 6.0 - 8.3 g/dL 10/03/2023 5:21 PM EDT LABORATORY [facility] ALT 17 10 - 35 U/L 10/03/2023 5:21 PM EDT LABORATORY [facility] Blood Venous blood specimen / Unknown Venipuncture / Unknown 10/03/2023 4:36 PM EDT 10/03/2023 4:40 PM EDT Antony Franco [employer] LAB BLOOD ORDERABLES Performing Organization Address City/[facility]/ZIP Co de Phone Number LABORATORY [address] [phone] * EXTRA LIGHT BLUE TOP (10/03/2023 4:36 PM EDT) Blood Venous blood specimen / Unknown Venipuncture / Unknown 10/03/2023 4:36 PM EDT 10/03/2023 4:40 PM EDT Antony DealAvieon DO LAB BLOOD ORDERABLES Performing Organization Address City/[facility]/ZIP Co de Phone Number LABORATORY [address] [phone] * XR CHEST 1 VIEW (10/03/2023 4:14 PM EDT) Anatomical Region Laterality Modality Chest Digital Radiogra phy 10/03/2023 3:59 PM EDT Impressions 10/03/2023 4:46 PM EDT IMPRESSION: Dense consolidation in the right lower lobe and patchy infiltrates in the left lower lobe consistent with multifocal pneumonia. THIS DOCUMENT HAS BEEN ELECTRONICALLY SIGNED BY FREEDOM POOL MD Narrative 10/03/2023 4:46 PM EDT PROCEDURE INFORMATION: Exam: XR Chest Exam date and time: 10/03/2023 3:59 PM Age: 63 years old Clinical indication: Shortness of breath; Additional info: SOB TECHNIQUE: Imaging protocol: Radiologic exam of the chest. Views: 1 view. COMPARISON: DX XR CHEST 1 VIEW 08/19/2023 5:58 PM FINDINGS: Lungs: Dense consolidation in the right lower lobe and patchy infiltrates in the left lower lobe consistent with multifocal pneumonia. Pleural spaces: Unremarkable. No pleural effusion. No pneumothorax. Heart/Mediastinum: Unremarkable. No cardiomegaly. Bones/joints: Unremarkable. Procedure Note Freedom Pool MD - 10/03/2023 PROCEDURE INFORMATION: Exam: XR Chest Exam date and time: 10/03/2023 3:59 PM Age: 63 years old Clinical indication: Shortness of breath; Additional info: SOB TECHNIQUE: Imaging protocol: Radiologic exam of the chest. Views: 1 view. COMPARISON: DX XR CHEST 1 VIEW 08/19/2023 5:58 PM FINDINGS: Lungs: Dense consolidation in the right lower lobe and patchy infiltratesin the left lower lobe consistent with multifocal pneumonia. Pleural spaces: Unremarkable. No pleural effusion. No pneumothorax. Heart/Mediastinum: Unremarkable. No cardiomegaly. Bones/joints: Unremarkable. IMPRESSION IMPRESSION: Dense consolidation in the right lower lobe and patchy infiltrates in theleft lower lobe consistent with multifocal pneumonia. THIS DOCUMENT HAS BEEN ELECTRONICALLY SIGNED BY FREEDOM POOL MD Antony Franco DO RADIOLOGY (RAD GENER AL) * (ABNORMAL) RESPIRATORY PATHOGEN PANEL, PCR (10/03/2023 3:52 PM EDT) Adenovirus by PCR Negative Negative 024 5:17 PM EDT [facility] Coronavirus 229E by PCR Negative Negative 10/03/2023 5:17 PM EDT [facility] Coronavirus HKU1 by PCR Negative Negative 10/03/2023 5:17 PM EDT [facility] Coronavirus NL63 by PCR Negative Negative 10/03/2023 5:17 PM EDT [facility] Coronavirus OC43 by PCR Negative Negative 10/03/2023 5:17 PM EDT [facility] Coronavirus SARS-CoV-2 by PCR Negative Negative 10/03/2023 5:17 PM EDT [facility] Human Metapneumovirus by PCR Negative Negative 10/03/2023 5:17 PM EDT [facility] Rhinovirus/Enterov irus by PCR Positive(A) Negative 10/03/2023 5:17 PM EDT [facility] Comment: Rhinovirus/Enterovirus detected by PCR (amplified probe). Influenza A Virus by PCR Negative Negative 10/03/2023 5:17 PM EDT [facility] Influenza B Virus by PCR Negative Negative 10/03/2023 5:17 PM EDT [facility] Parainfluenza Virus 1 by PCR Negative Negative 10/03/2023 5:17 PM EDT [facility] Parainfluenza Virus 2 by PCR Negative Negative 10/03/2023 5:17 PM EDT [facility] Parainfluenza Virus 3 by PCR Negative Negative 10/03/2023 5:17 PM EDT [facility] Parainfluenza Virus 4 by PCR Negative Negative 10/03/2023 5:17 PM EDT [facility] Respiratory Syncytial Virus by PCR Negative Negative 10/03/2023 5:17 PM EDT [facility] Bordetella pertussis by PCR Negative Negative 10/03/2023 5:17 PM EDT [facility] Chlamydia pneumoniae by PCR Negative Negative 10/03/2023 5:17 PM EDT [facility] [facility] Mycoplasma pneumoniae by PCR Negative Negative 10/03/2023 5:17 PM EDT [facility] Bordetella parapertussis by PCR Negative Negative 10/03/2023 5:17 PM EDT [facility] Comment: The primers that detect Rhinovirus may cross react with some Enterorviruses. The validation of bronchial specimens, tracheal aspirates, and throats for this assay was developed and performance characteristics determined by [employer]. The validation of alternate specimen types has not been cleared or approved by the U.S. Food and Drug Administration (FDA). It has been determined that such clearance or approval is not necessary. Upper Respiratory Mid-turbinate nasal swab / Unknown Non-blood Collection / Unknown 10/03/2023 3:52 PM EDT 10/03/2023 3:54 PM EDT Antony Franco DO LAB MICRO - GENERAL [place] [address] documented in this encounter Visit Diagnoses Diagnosis Severe sepsis with acute organ dysfunction (HCC)- Primary Unspecified septicemia Shortness of breath Multifocal pneumonia Chest pain Chest pain, unspecified Acute hypoxic respiratory failure (HCC) Acute on chronic congestive heart failure, unspecified heart failure type (HCC) Other nonspecific abnormal finding of lung field Pressure ulcer of right heel, unstageable (HCC) Strain of other muscle(s) and tendon(s) at lower leg level, right leg, initial encounter Abnormal findings on diagnostic imaging of limbs Other nonspecific (abnormal) findings on radiological and other examinations of body structure Anemia of chronic renal failure, stage 4 (severe) (HCC) Severe sepsis with acute organ dysfunction (HCC) Unspecified septicemia Hypoxemia Acute osteomyelitis of calcaneum, right (HCC) Rhinovirus infection Rhinovirus infection in conditions classified elsewhere and of unspecified site Demand ischemia (HCC) Other acute and subacute form of ischemic heart disease Acute on chronic heart failure with preserved ejection fraction (HFpEF) (HCC) Hyponatremia Hyposmolality and/or hyponatremia Type 2 diabetes mellitus, with long-term current use of insulin (HCC) Chronic kidney disease, stage IV (severe) (HCC) Chronic kidney disease, Stage IV (severe) Hypothyroid Unspecified hypothyroidism Acute on chronic respiratory failure with hypoxia (HCC) HCAP (healthcare-associated pneumonia) Pneumonia, organism unspecified Moderate pulmonary hypertension (HCC) Morbid obesity (HCC) Morbid obesity Acute osteomyelitis of calcaneum, right (HCC) Acute renal failure with acute tubular necrosis superimposed on stage 4 chronic kidney disease (HCC) Anemia of chronic renal failure, stage 4 (severe) (HCC) documented in this encounter Administered Medications Inactive Administered Medications - up to 3 most recent administrations Medication Order MAR Action Action Date Dose Rate Site Acetaminophen (Tylenol) tab 650 mg 650 mg, Oral, Q6H PRN Pain, Mild, Fever >38C(100.5F), Starting on Sun10/03/23 at 1951, Until Sun10/09/23 at 1358, Maximum of 4 grams (4000 mg) per day. Given 10/08/2023 9:42 PM EDT 650 mg Given 10/08/2023 8:59 AM EDT 650 mg Given 10/07/2023 10:41 AM EDT 650 mg Albuterol Sulfate (Proventil) (2.5 MG/3ML) 0.083% inhalation solution 2.5 mg 2.5 mg, Nebulizer, RESPQID, First dose on Sun10/07/23 at 1000, Until Discontinued, Do not convert to a different method UNLESS discussed with Dr NAPIER. Given 10/09/2023 7:39 AM EDT 2.5 mg Given 10/08/2023 7:00 PM EDT 2.5 mg Given 10/08/2023 7:35 AM EDT 2.5 mg Albuterol Sulfate (Proventil) (2.5 MG/3ML) 0.083% inhalation solution 2.5 mg 2.5 mg, Nebulizer, Q4H PRN Dyspnea, pt preference, Starting on Sun10/08/23 at 2220, Until Sun10/09/23 at 1358 Given 10/09/2023 2:27 AM EDT 2.5 mg Given 10/08/2023 10:26 PM EDT 2.5 mg amitriptyline (Elavil) tab 100 mg 100 mg, Oral, QHS, First dose on Sun10/03/23 at 2200, Until Discontinued Given 10/08/2023 9:44 PM EDT 100 mg Given 10/07/2023 9:53 PM EDT 100 mg Given 10/06/2023 9:48 PM EDT 100 mg amLODIPine (Norvasc) tab 10 mg 10 mg, Oral, Daily(AM), First dose on Sun10/04/23 at 0900, Until Discontinued Given 10/07/2023 10:29 AM EDT 10 mg Given 10/06/2023 8:58 AM EDT 10 mg Given 10/05/2023 8:12 AM EDT 10 mg Benzonatate (Tessalon Perles) cap 100 mg 100 mg, Oral, TID(AM/NOON/HS), First dose on Sun10/06/23 at 1200, Until Discontinued, This med should NOT be Crushed or Chewed Given 10/09/2023 6:19 AM EDT 100 mg Given 10/08/2023 9:19 PM EDT 100 mg Given 10/08/2023 12:39 PM EDT 100 mg Bisacodyl (Dulcolax) supp 10 mg 10 mg, Rectal, DAILY PRN Constipation, Starting on Sun10/05/23 at 1601, Until Sun10/07/23 at 0926, Administer if no bowel movement within past 72 hours and patient unable to take oral medications. Given 10/05/2023 4:09 PM EDT 10 mg Bisacodyl (Dulcolax) tab 10 mg 10 mg, Oral, ONCE, On Sun10/07/23 at 1000, For 1 dose, This med should NOT be Crushed or Chewed Given 10/07/2023 10:29 AM EDT 10 mg Bumetanide (Bumex) inj 2 mg 2 mg, IV Push, ONCE, On Sun10/08/23 at 0815, For 1 dose, May administer as dispensed over 1 to 5 minutes DO NOT REFRIGERATE Given 10/08/2023 9:00 AM EDT 2 mg Bumetanide (Bumex) tab 1 mg 1 mg, Oral, BID (0900, 1600), First dose on Sun10/09/23 at 0900, Until Discontinued Given 10/09/2023 9:24 AM EDT 1 mg Cetirizine (ZyrTEC) oral solution 5 mg 5 mg, Oral, Daily(AM), First dose on Sun10/06/23 at 0900, Until Discontinued Given 10/09/2023 8:35 AM EDT 5 mg Given 10/08/2023 8:47 AM EDT 5 mg Given 10/07/2023 10:30 AM EDT 5 mg Cetirizine (ZyrTEC) tab 10 mg 10 mg, Oral, Daily(AM), First dose on Sun10/04/23 at 0900, Until Discontinued Given 10/05/2023 8:12 AM EDT 10 mg Given 10/04/2023 9:51 AM EDT 10 mg dextrose 50% inj 25 mL 25 mL, IV Push, PRN Hypoglycemia, Other, For blood glucose 54 - 69 mg/dL or 70 - 100 mg/dL with symptoms AND patient is unresponsive, NPO, OR unable to swallow, Starting on Sun10/03/23 at 1952, Until Sun10/09/23 at 1358, Administer IV. Recheck blood glucose after 15 minutes. Notify provider. dextrose 50% inj 50 mL 50 mL, IV Push, PRN Hypoglycemia, Other, For blood glucose below 54 mg/dL AND patient unresponsive, NPO, OR unable to swallow, Starting on Sun10/03/23 at 1952, Until Sun10/09/23 at 1358, Administer IV. Recheck blood glucose in 15 minutes. Notify provider. doxycycline (Vibramycin) 100 mg in NSS 100 mL ivpb 100 mg, IV Piggyback, Q12H, 2 doses, First dose on Sun10/03/23 at 2130, Last dose on Sun10/04/23 at 0900, Administer over 60 Minutes, Protect from Light! Mix before Administering! WASTE INFO: Return waste medication to pharmacy in zip lock bag - SPLP container. New Bag 10/04/2023 9:59 AM EDT 100 mg 105 mL/hr Rate Verify 10/03/2023 11:42 PM EDT 100 mg/hr 105 mL/hr Restarted 10/03/2023 11:37 PM EDT 100 mg/hr 105 mL/hr doxycycline tab 100 mg 100 mg, Oral, Q12H, First dose on Sun10/04/23 at 2100, Last dose on Sun10/13/23 at 0900, For 9 days Given 10/09/2023 8:35 AM EDT 100 mg Given 10/08/2023 9:19 PM EDT 100 mg Given 10/08/2023 8:47 AM EDT 100 mg fluticasone (Flonase) nasal inhaler 1 [place] 1 [place], Nasal, Daily(AM), First dose on Sun10/04/23 at 0900, Until Discontinued, 50 mcg / Actuation Given 10/09/2023 8:35 AM EDT 1 [place] Given 10/08/2023 8:48 AM EDT 1 [place] Given 10/07/2023 10:32 AM EDT 1 [place] folic acid tab 1 mg 1 mg, Oral, Daily(AM), First dose on Sun10/04/23 at 0900, Until Discontinued Given 10/09/2023 8:35 AM EDT 1 mg Given 10/08/2023 8:47 AM EDT 1 mg Given 10/07/2023 10:29 AM EDT 1 mg Furosemide (Lasix) inj 100 mg 100 mg, IV Push, BID (0900, 1600), First dose on Sun10/03/23 at 2200, Until Discontinued Given 10/04/2023 4:44 PM EDT 1 00 mg Given 10/04/2023 10:09 AM EDT 100 mg Given 10/03/2023 11:29 PM EDT 100 mg glucagon (Glucagen) inj 1 mg 1 mg, Intramuscular, PRN Hypoglycemia, Other, If patient is unresponsive, or NPO and has no IV access, Starting on Sun10/03/23 at 1951, Until Sun10/09/23 at 1358, NPO and no IV access with either [...] patient alert WITH difficulty chewing/swallowing, Starting on Sun10/03/23 at 1951, Until Sun10/09/23 at 1358, Administer gel. Recheck blood glucose after 15 minutes. Notify provider. 37.5 gram tube = 15 grams glucose = 1 each Glucose (Glutose 15) 40 % gel 30 g of glucose 30 g of glucose, Oral, PRN Hypoglycemia (low sugar), Other, For blood glucose below 54 mg/dL AND patient alert WITH difficulty chewing/swallowing, Starting on Sun10/03/23 at 1951, Until Sun10/09/23 at 1358, Administer gel. Recheck blood glucose after 15 minutes. Notify provider. 37.5 gram tube = 15 grams glucose = 1 each glucose chew tab 16 g 16 g, Oral, PRN Hypoglycemia, Other, For blood glucose 54 - 69 mg/dL or 70 - 100 mg/dL with symptoms and patient alert without difficulty chewing/swallowing., Starting on Sun10/03/23 at 1951, Until Sun10/09/23 at 1358 guaiFENesin (Robitussin) oral liquid 100 mg 100 mg, Oral, QID(AM/NOON/PM/HS), First dose on Sun10/04/23 at 1800, Until Discontinued Given 10/06/2023 6:04 AM EDT 1 00 mg Given 10/05/2023 9:51 PM EDT 100 mg Given 10/05/2023 11:23 AM EDT 100 mg guaiFENesin (Robitussin) oral liquid 200 mg 200 mg, Oral, QID(AM/NOON/PM/HS), First dose (after last modification) on Sun10/06/23 at 1200, Until Discontinued Given 10/09/2023 6:18 AM EDT 200 mg Given 10/08/2023 5:46 PM EDT 200 mg Given 10/08/2023 12:39 PM EDT 200 mg hEParin inj 7,500 Units 7,500 Units, Subcutaneous, Q8H, First dose on Sun10/03/23 at 2200, Until Discontinued Given 10/09/2023 6:18 AM EDT 7,500 Units Abdomen Left Lower Given 10/08/2023 9:19 PM EDT 7,500 Units A bdomen Right Lower Given 10/08/2023 5:45 PM EDT 7,500 Units A bdomen Right Lower HYDROcodone Bit-Homatrop MBr (Hycodan) oral solution 2.5 mL 2.5 mL, Oral, QHS, First dose (after last modification) on Sun10/08/23 at 2200, Until Discontinued Given 10/08/2023 9:18 PM EDT 2.5 mL HYDROcodone Bit-Homatrop MBr (Hycodan) oral solution 5 mL 5 mL, Oral, QHS, First dose on Sun10/07/23 at 2200, Until Discontinued Given 10/07/2023 9:52 PM EDT 5 mL hydrOXYzine HCl tab 50 mg 50 mg, Oral, Q8H PRN Anxiety, Starting on Sun10/03/23 at 1942, Until Sun10/09/23 at 1358 Given 10/08/2023 9:42 PM EDT 5 0 mg Given 10/07/2023 12:00 AM EDT 50 mg Given 10/05/2023 12:21 AM EDT 50 mg insulin aspart (NovoLOG) inj Subcutaneous, W/MEALS AND HS, First dose on Sun10/03/23 at 2200, Until Discontinued, MEDIUM DOSE (Usual [...] insulin dose and call covering provider. Given 10/09/2023 8:35 AM EDT 2 Units Abdomen Right Lower Given 10/08/2023 9:42 PM EDT 2 Units Ab domen Left Lower Given 10/08/2023 5:45 PM EDT 2 Units Ar m Right Upper Insulin Glargine (Lantus) inj 10 Units 10 Units, Subcutaneous, HS, First dose on Sun10/03/23 at 2200, Until Discontinued, "IF DOSE IS HELD- NOTIFY COVERING PROVIDER!" Given 10/08/2023 9:42 PM EDT 10 Units Abdom en Left Lower Given 10/07/2023 10:23 PM EDT 10 Units A rm Right Upper Given 10/06/2023 9:45 PM EDT 10 Units Ar m Right Upper levothyroxine (Levoxyl) tab 175 mcg 175 mcg, Oral, AT 0630, First dose on Sun10/04/23 at 0630, Until Discontinued Given 10/09/2023 6:19 AM EDT 175 mcg Given 10/08/2023 5:11 AM EDT 175 mcg Given 10/07/2023 5:43 AM EDT 175 mcg melatonin tab 3 mg 3 mg, Oral, HS PRN Insomnia, Starting on Sun10/03/23 at 1951, Until Sun10/09/23 at 1358 Given 10/07/2023 9:53 PM EDT 3 mg Given 10/06/2023 9:44 PM EDT 3 mg Given 10/04/2023 9:39 PM EDT 3 mg Menthol ([place]) cough drop 1 Lozenge 1 Lozenge, Oral, Q2H PRN Sore throat, Dry Mouth, Starting on Sun10/04/23 at 1632, Until 7/27/24 at 1728 Given 10/05/2023 5:03 AM EDT 1 Lozenge Menthol ([place]) cough drop 1 Lozenge 1 Lozenge, Oral, Q2H PRN Dry Mouth, Cough, Starting on Sun10/06/23 at 1726, Until Sun10/09/23 at 1358 meropenem (Merrem) IVPB 1,000 mg 1,000 mg, IV Piggyback, ONCE, 1 dose, On Sun10/03/23 at 1645 10/03/2023 4:45 PM EDT 1,000 mg 100 mL/hr meropenem in NSS (Merrem) ivpb 500 mg 500 mg, IV Piggyback, Q24H, 5 doses, First dose on Sun10/04/23 at 1700, Last dose on Sun10/08/23 at 1700 Restarted 10/04/2023 4:51 PM EDT 1,000 mg/hr 100 mL/h r 10/04/2023 4:23 PM EDT 500 mg 100 mL/hr meropenem in NSS (Merrem) ivpb 500 mg 500 mg, IV Piggyback, Q12H (1000,2200), 10 doses, First dose (after last modification) on Sun10/05/23 at 1145, Last dose on Sun10/09/23 at 2200 [facility] 10/08/2023 10:00 PM EDT 500 mg 100 mL/hr 10/08/2023 12:42 PM EDT 500 mg 100 mL/hr 10/07/2023 10:08 PM EDT 500 mg 100 mL/hr meropenem in NSS (Merrem) ivpb 500 mg 500 mg, IV Piggyback, Q8H, 3 doses, First dose (after last modification) on Sun10/09/23 at 0900, Last dose on Sun10/09/23 at 2200 [facility] 10/09/2023 8:40 AM EDT 500 mg 100 mL/hr metOLazone (Zaroxolyn) tab 2.5 mg 2.5 mg, Oral, Daily(AM), First dose on Sun10/04/23 at 0900, Until Discontinued Given 10/04/2023 9:51 AM EDT 2.5 mg metOLazone (Zaroxolyn) tab 2.5 mg 2.5 mg, Oral, ONCE, On Sun10/08/23 at 0830, For 1 dose Given 10/08/2023 9:00 AM EDT 2.5 mg omeprazole (PriLOSEC) cap 20 mg 20 mg, Oral, BEFORE BREAKFAST, First dose on Sun10/04/23 at 0745, Until Discontinued, This med should NOT be Crushed or Chewed Given 10/09/2023 8:35 AM EDT 20 mg Given 10/08/2023 8:47 AM EDT 20 mg Given 10/07/2023 10:29 AM EDT 20 mg oxygen GAS Inhalation, OXYGEN, First dose on Sun10/05/23 at 1600, Until Discontinued, Device/Managed by: Low Flow Device, Goal SPO2 (%): 91-95, Starting Device: Nasal Cannula, Initial Flow Rate (LPM): 2, Lowest Support: Nasal Cannula: Flow 0-6 LPM. Titrate up/down by 1 LPM., Titration Interval: Q2 minutes and as needed., Notify Provider: For sudden DECREASE in resting SPO2 to less than 85% and when escalating delivery device., Patient baseline/home oxygen requirement 2 L. Do not titrate below 2 L Wean patient off Oxygen when the oxygen saturation is greater than or equal to 93% Oxygen On 10/09/2023 8:00 AM EDT 2 L/min(Oxygen) Oxygen On 10/09/2023 12:00 AM EDT 2 L/min(Oxygen) Oxygen On 10/08/2023 4:00 PM EDT 2 L/min(Oxygen) phenol (chlorASEPTIC) spray 3 [place] 3 [place], Oral, Q4H PRN Sore throat, Starting on Sun10/04/23 at 1632, Until Sun10/09/23 at 1358, See nursing care plan Given 10/07/2023 10:32 AM EDT 3 Sp rays Given 10/06/2023 4:13 PM EDT 3 Sprays Given 10/05/2023 9:58 PM EDT 3 Sprays Polyethylene Glycol 3350 (Miralax) oral powder 17 g 17 g (1 Packet), Oral, BID (0900,2100), First dose (after last modification) on Sun10/07/23 at 1000, Until Discontinued, Administer if no bowel movement within past 24 hours. Given 10/08/2023 8:47 AM EDT 17 g Given 10/07/2023 9:51 PM EDT 17 g Given 10/07/2023 10:29 AM EDT 17 g potassium chloride ER tab 20 mEq 20 mEq, Oral, ONCE, On 10/06/23 at 1615, For 1 dose, This med should NOT be Crushed or Chewed Given 10/06/2023 4:09 PM EDT 20 mEq senna-docusate (Senokot-S) 1 Tablet 1 Tablet, Oral, QHS, First dose on 10/07/23 at 2200, Until Discontinued, Hold for loost stooe Given 10/07/2023 9:53 PM EDT 1 Tablet Simvastatin (Zocor) tab 20 mg 20 mg, Oral, Daily(AM), First dose on Kristy 10/04/23 at 0900, Until Discontinued Given 10/09/2023 9:24 AM EDT 20 mg Given 10/08/2023 8:47 AM EDT 20 mg Given 10/07/2023 10:29 AM EDT 20 mg SMOG enema 300 mL, Rectal, ONCE, On 10/08/23 at 1030, For 1 dose Given 10/08/2023 12:04 PM EDT 300 mL sodium chloride 0.9 % flush/inj 3 mL 3 mL, IV Push, PRN Other, Line Patency, Starting on Sun10/03/23 at 1951, Until Sun10/09/23 at 1358, Do not flush if lock, PICC, or central line not in place, IV infusing or unable to flush trimethobenzamide (Tigan) inj 100 mg 100 mg, Intramuscular, TID PRN Nausea, Vomiting, Starting on Sun10/03/23 at 2037, Until Sun10/09/23 at 1358 Given 10/07/2023 10:14 PM EDT 100 mg Deltoid Right Upper Given 10/05/2023 11:38 AM EDT 100 mg D eltoid Left Upper documented in this encounter Active and Recently Administered Medications Times are shown in EDT. Scheduled Medication Order 10/07/2023 10/08/2023 10/09/2023 Albuterol Sulfate (Proventil) (2.5 MG/3ML) 0.083% inhalation solution 2.5 mg 2.5 mg, Nebulizer, RESPQID, First dose on Sun10/07/23 at 1000, Until Discontinued, Do not convert to a different method UNLESS discussed with Dr NAPIER. 1022 (Given - Provider: Nile Vyas, CAREER AGENT)1413 (Given - Provider: Nile Vyas, CAREER AGENT)1910 (Given - Provider: Shama Seymour, CAREER AGENT) 0735 (Given - Provider: Elver Meek, CAREER AGENT)1100 (Not Given - Provider: Elver Meek CAREER AGENT - Reason: Refused-Notify Provider)1500 (Not Given - Provider: Elver Meek RRT - Reason: Refused-Notify Provider)1900 (Given - Provider: Iris Seaman RRT - Comment: pt refused) 0739 (Given - Provider: Soni Lundberg RRT) amitriptyline (Elavil) tab 100 mg 100 mg, Oral, QHS, First dose on Sun10/03/23 at 2200, Until Discontinued 2152 (Given - Provider: Zeinab Carranza RN) 2144 (Given - Provider: Zeinab Carranza, SARTHAK) amLODIPine (Norvasc) tab 10 mg (CANCELED) 10 mg, Oral, Daily(AM), First dose on Kristy 10/04/23 at 0900, Until Discontinued 1029 (Given - Provider: Rita Anguiano, SARTHAK) Benzonatate (Tessalon Perles) cap 100 mg 100 mg, Oral, TID(AM/NOON/HS), First dose on 10/06/23 at 1200, Until Discontinued, This med should NOT be Crushed or Chewed 0541 (Given - Provider: Zeinab Carranza, SARTHAK)1156 (Given - Provider: Rita Anguiano RN)2153 (Given - Provider: Zeinab Carranza, SARTHAK) 0508 (Given - Provider: Zeinab Carranza, SARTHAK)1239 (Given - Provider: Ruth Williamson RN)2119 (Given - Provider: Zeinab Carranza RN) 0619 (Given - Provider: Ninoska Ladd RN) Bisacodyl (Dulcolax) tab 10 mg (COMPLETED) 10 mg, Oral, ONCE, On Sun10/07/23 at 1000, For 1 dose, This med should NOT be Crushed or Chewed 1029 (Given - Provider: Rita Anguiano RN) Bumetanide (Bumex) inj 2 mg (COMPLETED) 2 mg, IV Push, ONCE, On Sun10/08/23 at 0815, For 1 dose, May administer as dispensed over 1 to 5 minutes DO NOT REFRIGERATE 0900 (Given - Provider: Ruth Williamson, SARTHAK) Bumetanide (Bumex) tab 1 mg 1 mg, Oral, BID (0900, 1600), First dose on Sun10/09/23 at 0900, Until Discontinued 0924 (Given - Provider: Asia Frost, SARTHAK) Cetirizine (ZyrTEC) oral solution 5 mg 5 mg, Oral, Daily(AM), First dose on Sun10/06/23 at 0900, Until Discontinued 1030 (Given - Provider: Rita Anguiano RN) 0847 (Given - Provider: Ruth Williamson, SARTHAK) 0835 (Given - Provider: Asia Frost, SARTHAK) doxycycline tab 100 mg 100 mg, Oral, Q12H, First dose on Sun10/04/23 at 2100, Last dose on Sun10/13/23 at 0900, For 9 days 1029 (Given - Provider: Rita Anguiano RN)2153 (Given - Provider: Zeinab Carranza RN) 0847 (Given - Provider: Ruth Williamson, SARTHAK)211 (Given - Provider: Zeinab Carranza, SARTHAK) 0835 (Given - Provider: Asia Frost, SARTHAK) fluticasone (Flonase) nasal inhaler 1 [place] 1 [place], Nasal, Daily(AM), First dose on Sun10/04/23 at 0900, Until Discontinued, 50 mcg / Actuation 1032 (Given - Provider: Rita Anguiano RN) 0848 (Given - Provider: Ruth Williamson RN) 0835 (Given - Provider: Asia Frost RN) folic acid tab 1 mg 1 mg, Oral, Daily(AM), First dose on Kristy 10/04/23 at 0900, Until Discontinued 1029 (Given - Provider: Rita Anguiano RN) 0847 (Given - Provider: Ruth Williamson RN) 0835 (Given - Provider: Asia Frost RN) guaiFENesin (Robitussin) oral liquid 200 mg 200 mg, Oral, QID(AM/NOON/PM/HS), First dose (after last modification) on Sun10/06/23 at 1200, Until Discontinued 0541 (Given - Provider: Zeinab Carranza RN)1156 (Given - Provider: Rita Anguiano RN)1711 (Given - Provider: Rita Anguiano RN)2151 (Given - Provider: Zeinab Carranza, SARTHAK) 0508 (Given - Provider: Zeinab Carranza, SARTHAK)1239 (Given - Provider: Ruth Williamson, SARTHAK)174 (Given - Provider: Ruth Williamson RN)2117 (Not Given - Provider: Zeinab Carranza RN - Reason: Refused-Notify Provider) 0618 (Given - Provider: Ninoska Ladd RN) hEParin inj 7,500 Units 7,500 Units, Subcutaneous, Q8H, First dose on Sun10/03/23 at 2200, Until Discontinued 0541 (Given - Provider: Zeinab Carranza RN)1339 (Given - Provider: Rita Anguiano RN)215 (Given - Provider: Zeinab Carranza RN) 0623 (Given - Provider: Zeinab Carranza, SARTHAK)1745 (Given - Provider: Ruth Williamson, SARTHAK)211 (Given - Provider: Zeinab Carranza, SARTHAK) 0618 (Given - Provider: Ninoska Ladd RN) HYDROcodone Bit-Homatrop MBr (Hycodan) oral solution 2.5 mL (CANCELED) 2.5 mL, Oral, QHS, First dose (after last modification) on Sun10/08/23 at 2200, Until Discontinued 2117 (Given - Provider: Zeinab Carranza, SARTHAK) HYDROcodone Bit-Homatrop MBr (Hycodan) oral solution 5 mL (CANCELED) 5 mL, Oral, QHS, First dose on Sun10/07/23 at 2200, Until Discontinued 2151 (Given - Provider: Zeinab Carranza, SARTHAK) insulin aspart (NovoLOG) inj Subcutaneous, W/MEALS AND HS, First dose on Sun10/03/23 at 2200, Until Discontinued, MEDIUM DOSE (Usual [...] covering provider. 0800 (No Insulin - Provider: Rita Anguiano RN - Reason: Parameter(s) Not Met)1155 (Given - Provider: Rita Anguiano RN)1711 (Given - Provider: Rita Anguiano RN)2223 (Given - Provider: Zeinab Carranza RN) 0800 (Not Given - Provider: Ruth Williamson RN - Reason: Parameter(s) Not Met)1200 (Not Given - Provider: Ruth Williamson RN - Reason: Parameter(s) Not Met)1745 (Given - Provider: Ruth Williamson RN)214 (Given - Provider: Zeinab Carranza RN) 0835 (Given - Provider: Asia Frost RN) Insulin Glargine (Lantus) inj 10 Units 10 Units, Subcutaneous, HS, First dose on Sun10/03/23 at 2200, Until Discontinued, "IF DOSE IS HELD- NOTIFY COVERING PROVIDER!" 222 (Given - Provider: Zeinab Carranza RN) 2141 (Given - Provider: Zeinab Carranza RN) levothyroxine (Levoxyl) tab 175 mcg 175 mcg, Oral, AT 0630, First dose on Sun10/04/23 at 0630, Until Discontinued 0543 (Given - Provider: Zeinab Carranza, SARTHAK) 0511 (Given - Provider: Zeinab Carranza RN) 0619 (Given - Provider: Ninoska Ladd RN) meropenem in NSS (Merrem) ivpb 500 mg (CANCELED) 500 mg, IV Piggyback, Q12H (1000,2200), 10 doses, First dose (after last modification) on Sun10/05/23 at 1145, Last dose on Sun10/09/23 at 2200 1033 (New Bag - Provider: Rita Anguiano, SARTHAK)1103 (Stopped - Provider: Rita Anguiano RN)2208 (New Bag - Provider: Zeinab Carranza RN) 1242 (New Bag - Provider: Ruth Williamson, SARTHAK)2200 (New Bag - Provider: Zeinab Carranza RN) 0829 (Stopped - Provider: Asia Frost, SARTHAK) meropenem in NSS (Merrem) ivpb 500 mg 500 mg, IV Piggyback, Q8H, 3 doses, First dose (after last modification) on Sun10/09/23 at 0900, Last dose on Sun10/09/23 at 2200 0840 (New Bag - Provider: Asia Frost, SARTHAK)1358 (Due: Stopped) metOLazone (Zaroxolyn) tab 2.5 mg (COMPLETED) 2.5 mg, Oral, ONCE, On Sun10/08/23 at 0830, For 1 dose 0900 (Given - Provider: Ruth Williamson, SARTHAK) omeprazole (PriLOSEC) cap 20 mg 20 mg, Oral, BEFORE BREAKFAST, First dose on Sun10/04/23 at 0745, Until Discontinued, This med should NOT be Crushed or Chewed 1029 (Given - Provider: Rita Anguiano RN) 0847 (Given - Provider: Ruth Williamson, SARTHAK) 0835 (Given - Provider: Asia Frost, SARTHAK) oxygen GAS Inhalation, OXYGEN, First dose on Sun10/05/23 at 1600, Until Discontinued, Device/Managed by: Low Flow Device, Goal SPO2 (%): 91-95, Starting Device: Nasal Cannula, Initial Flow Rate (LPM): 2, Lowest Support: Nasal Cannula: Flow 0-6 LPM. Titrate up/down by 1 LPM., Titration Interval: Q2 minutes and as needed., Notify Provider: For sudden DECREASE in resting SPO2 to less than 85% and when escalating delivery device., Patient baseline/home oxygen requirement 2 L. Do not titrate below 2 L Wean patient off Oxygen when the oxygen saturation is greater than or equal to 93% 0000 (Oxygen On - Provider: Zeinab Carranza RN)0800 (Oxygen On - Provider: Rita Anguiano RN)1600 (Oxygen On - Provider: Rita Anguiano RN) 0000 (Oxygen On - Provider: Zeinab Carranza RN)0800 (Oxygen On - Provider: Ruth Williamson RN)1600 (Oxygen On - Provider: Ruth Williamson RN) 0000 (Oxygen On - Provider: Zeinab Carranza RN)0800 (Oxygen On - Provider: Asia Frost RN) Polyethylene Glycol 3350 (Miralax) oral powder 17 g(Linked Group 1) 17 g (1 Packet), Oral, BID (0900,2099), First dose (after last modification) on 10/07/23 at 1000, Until Discontinued, Administer if no bowel movement within past 24 hours. 1029 (Given - Provider: Rita Anguiano RN)2151 (Given - Provider: Zeinab Carranza RN) 0847 (Given - Provider: Ruth Williamson RN)2100 (Not Given - Provider: Zeinab Carranza RN - Reason: Refused-Notify Provider) 0835 (Not Given - Provider: Asia Frost RN - Reason: Refused-Notify Provider) senna-docusate (Senokot-S) 1 Tablet 1 Tablet, Oral, QHS, First dose on 10/07/23 at 2200, Until Discontinued, Hold for loost stooe 2152 (Given - Provider: Zeinab Carranza RN) 2200 (Not Given - Provider: Zeinab Carranza RN - Reason: Parameter(s) Not Met - Comment: Pt is having loose stool) Simvastatin (Zocor) tab 20 mg 20 mg, Oral, Daily(AM), First dose on Sun10/04/23 at 0900, Until Discontinued 1029 (Given - Provider: Rita Anguiano RN) 0847 (Given - Provider: Ruth Williamson, SARTHAK) 0924 (Given - Provider: Asia Frost, SARTHAK) SMOG enema (COMPLETED) 300 mL, Rectal, ONCE, On Sun10/08/23 at 1030, For 1 dose 1204 (Given - Provider: Ruth Williamson, SARTHAK) PRN Medication Order 10/07/2023 10/08/2023 10/09/2023 Acetaminophen (Tylenol) tab 650 mg 650 mg, Oral, Q6H PRN Pain, Mild, Fever >38C(100.5F), Starting on Sun10/03/23 at 1951, Until Sun10/09/23 at 1358, Maximum of 4 grams (4000 mg) per day. 1041 (Given - Provider: Rita Anguiano RN) 0859 (Given - Provider: Ruth Williamson RN)2141 (Given - Provider: Zeinab Carranza RN) albuterol (VENTOLIN HFA/PROVENTIL HFA) inhaler 2 Puff, Inhalation, Q6H PRN Dyspnea, Starting on Sun10/03/23 at 1942, Until Sun10/09/23 at 1358, Shake can for 10 seconds before each puff SEND INHALER WITH PATIENT! WASTE INFO ( IF NOT SENT HOME WITH PATIENT) : Return unused medication to pharmacy in zip lock bag for disposal into black container labeled SP. Albuterol Sulfate (Proventil) (2.5 MG/3ML) 0.083% inhalation solution 2.5 mg 2.5 mg, Nebulizer, Q4H PRN Dyspnea, pt preference, Starting on Sun10/08/23 at 2220, Until Sun10/09/23 at 1358 2226 (Given - Provider: Iris Seaman, CAREER AGENT) 226 (Given - Provider: Iris Seaman, CHIQU[place]) dextrose 50% inj 25 mL 25 mL, IV Push, PRN Hypoglycemia, Other, For blood glucose 54 - 69 mg/dL or 70 - 100 mg/dL with symptoms AND patient is unresponsive, NPO, OR unable to swallow, Starting on Sun10/03/23 at 1951, Until Sun10/09/23 at 1358, Administer IV. Recheck blood glucose after 15 minutes. Notify provider. dextrose 50% inj 50 mL 50 mL, IV Push, PRN Hypoglycemia, Other, For blood glucose below 54 mg/dL AND patient unresponsive, NPO, OR unable to swallow, Starting on Sun10/03/23 at 1951, Until Sun10/09/23 at 1358, Administer IV. Recheck blood glucose in 15 minutes. Notify provider. Gabapentin (Neurontin) cap 100 mg 100 mg, Oral, TID PRN neuropathic pain, Starting on Sun10/03/23 at 1941, Until Sun10/09/23 at 1358 glucagon (Glucagen) inj 1 mg 1 mg, Intramuscular, PRN Hypoglycemia, Other, If patient is unresponsive, or NPO and has no IV access, Starting on Sun10/03/23 at 1951, Until Sun10/09/23 at 1358, NPO and no IV access with either [...] patient alert WITH difficulty chewing/swallowing, Starting on Sun10/03/23 at 1951, Until Sun10/09/23 at 1358, Administer gel. Recheck blood glucose after 15 minutes. Notify provider. 37.5 gram tube = 15 grams glucose = 1 each Glucose (Glutose 15) 40 % gel 30 g of glucose 30 g of glucose, Oral, PRN Hypoglycemia (low sugar), Other, For blood glucose below 54 mg/dL AND patient alert WITH difficulty chewing/swallowing, Starting on Sun10/03/23 at 1951, Until Sun10/09/23 at 1358, Administer gel. Recheck blood glucose after 15 minutes. Notify provider. 37.5 gram tube = 15 grams glucose = 1 each glucose chew tab 16 g 16 g, Oral, PRN Hypoglycemia, Other, For blood glucose 54 - 69 mg/dL or 70 - 100 mg/dL with symptoms and patient alert without difficulty chewing/swallowing., Starting on Sun10/03/23 at 1952, Until Sun10/09/23 at 1358 hydrOXYzine HCl tab 50 mg 50 mg, Oral, Q8H PRN Anxiety, Starting on Sun10/03/23 at 1942, Until Sun10/09/23 at 1358 0000 (Given - Provider: Zeinab Carranza RN) 2142 (Given - Provider: Zeinab Carranza, SARTHAK) melatonin tab 3 mg 3 mg, Oral, HS PRN Insomnia, Starting on Sun10/03/23 at 1951, Until Sun10/09/23 at 1358 2153 (Given - Provider: Zeinab Carranza, SARTHAK) Menthol ([place]) cough drop 1 Lozenge 1 Lozenge, Oral, Q2H PRN Dry Mouth, Cough, Starting on 10/06/23 at 1726, Until Sun10/09/23 at 1358 phenol (chlorASEPTIC) spray 3 [place] 3 [place], Oral, Q4H PRN Sore throat, Starting on Kristy 10/04/23 at 1632, Until Sun10/09/23 at 1358, See nursing care plan 1032 (Given - Provider: Rita Anguiano RN) sodium chloride 0.9 % flush/inj 3 mL 3 mL, IV Push, PRN Other, Line Patency, Starting on Sun10/03/23 at 1951, Until Sun10/09/23 at 1358, Do not flush if lock, PICC, or central line not in place, IV infusing or unable to flush trimethobenzamide (Tigan) inj 100 mg 100 mg, Intramuscular, TID PRN Nausea, Vomiting, Starting on Sun10/03/23 at 2037, Until Sun10/09/23 at 1358 2214 (Given - Provider: Zeinab Carranza RN) Linked Groups Order Group 1: Polyethylene Glycol 3350 (Miralax) oral powder 17 gJump to med 17 g (1 Packet), Oral, BID (0900,2100), First dose (after last modification) on Sun10/07/23 at 1000, Until Discontinued, Administer if no bowel movement within past 24 hours. And senna-docusate (Senokot-S) 1 Tablet (CANCELED) 1 Tablet, Oral, BID PRN Constipation, Starting on 10/07/23 at 09, Until 10/07/23 at 09, Administer in addition to polyethylene glycol if no bowel movement within past 48 hours. And Bisacodyl (Dulcolax) tab 5 mg (CANCELED) 5 mg, Oral, DAILY PRN Constipation, Starting on 10/07/23 at 09, Until 10/07/23 at 926, Administer in addition to polyethylene glycol and senna- docusate if no bowel movement in past 72 hours. And Bisacodyl (Dulcolax) supp 10 mg (CANCELED) 10 mg, Rectal, DAILY PRN Constipation, Starting on 10/07/23 at 09, Until 10/07/23 at 09, Administer if no bowel movement within past 72 hours and patient unable to take oral medications. 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
--- OUTSIDE RECORDS SUMMARY | 2023-12-08 02:49 | External Medical Summary ---
Author Name Unknown Address Unknown Organization K1F:LAB[facility]ATORY [facility] - [address] [place] [address] Laboratory Report Ordering Provider Test Date Status BRONWYN BERNARD 10/12/2023 04:06:00 Final Observation Date Value Abnormality Reference (Units ) Status SYNC LEUKOCYTES IN BLOOD BY AUTOMATED COUNT 10/12/2023 04:06:00 14.52 Above high normal 4.00-10.80 (K/uL) Final Segs 10/12/2023 04:06:00 66.3 40.0-75.0 (%) Final Lymphs % 10/12/2023 04:06:00 20.2 18.0-42.0 (%) Final Monos 10/12/2023 04:06:00 5.9 1.0-11.0 (%) Final Eosinophils 10/12/2023 04:06:00 2.9 0.0-6.0 (%) Final Basos 10/12/2023 04:06:00 0.4 0.0-2.0 (%) Final Immature Granulocyte, Percent 10/12/2023 04:06:00 4.3 Above high normal 0.0-2.0 (%) Final Absolute Segs 10/12/2023 04:06:00 9.64 Above high normal 1.80-7.70 (K/uL) Final Lymphs, absolute 10/12/2023 04:06:00 2.93 1.00-4.80 (K/ul) Final Monos, Abs 10/12/2023 04:06:00 0.85 0.00-1.10 (K/uL) Final Eos, Abs 10/12/2023 04:06:00 0.42 0.00-0.70 (K/uL) Final Basos, Abs 10/12/2023 04:06:00 0.06 0.00-0.20 (K/uL) Final Immature Granulocytes, Number 10/12/2023 04:06:00 0.62 Above high normal 0.00-0.20 (K/uL) Final Performing Location LABORATORY [facility] - [facility] [address] [place] [address]
--- OUTSIDE RECORDS SUMMARY | 2023-12-08 02:49 | External Medical Summary ---
Author Name Unknown Address Unknown Organization K1F:LABORATORY [facility] - [address] [place] [address] Laboratory Report Ordering Provider Test Date Status BRONWYN BERNARD 10/12/2023 04:06:00 Final Observation Date Value Abnormality Reference (Units ) Status CRP, low-sensitivity 10/12/2023 04:06:00 18 Above high normal <=5 (mg/L) Final Performing Location LAB[facility]ATORY [facility] - [address] [place] [address]
--- OUTSIDE RECORDS SUMMARY | 2023-12-08 02:49 | External Medical Summary ---
Author Name Unknown Address Unknown Organization K1F:LABORATORY [facility] - [address] [place] [address] Laboratory Report Ordering Provider Test Date Status BRONWYN BERNARD 10/10/2023 04:40:00 Final Observation Date Value Abnormality Reference (Units ) Status WBC, Total 10/10/2023 04:40:00 15.49 Above high normal 4.00-10.80 (K/uL) Final RBC 10/10/2023 04:40:00 2.76 3.85-5.15 (M/uL) Final Hemoglobin 10/10/2023 04:40:00 7.8 Below low normal 12.0-15.3 (g/dL) Final HCT 10/10/2023 04:40:00 24.0 Below low normal 36.0-45.2 (%) Final MCV 10/10/2023 04:40:00 87.0 81.5-97.5 (fL) Final MCH 10/10/2023 04:40:00 28.3 27.0-34.0 (pg) Final MCHC 10/10/2023 04:40:00 32.5 32.0-36.0 (g/dL) Final RDW 10/10/2023 04:40:00 15.1 11.5-15.5 (%) Final Platelets 10/10/2023 04:40:00 354 140-400 (K/uL) Final MPV 10/10/2023 04:40:00 11.3 6.6-11.1 (fL) Final Nucleated erythrocytes/100 leukocytes [Ratio] in Blood by Automated count 10/10/2023 04:40:00 0 <=0 (/100 WBCs) Final Performing Location LAB[facility]ATORY [facility] - [address] [place] [address]
--- OUTSIDE RECORDS SUMMARY | 2023-12-08 02:49 | External Medical Summary | Summary of Care ---
Author Name Unknown Organization [facility] Address [address] [place] [address] Phone [phone] Care Team Providers Care Library Manager Name Role Phone Natali Langston Primary Care Provider Reason for Visit * Reason Comments Follow Up OM R foot Encounter Details Date Type Department Care Team (Latest Contact Info) Description 08/31/2023 10:20 AM EDT Office Visit Infectious Disease [address] [address] Ricky Carnes MD [address] [place] [address] Osteomyelitis of right foot, unspecified type (HCC)*; Type 2 diabetes mellitus with peripheral neuropathy (HCC) Allergies Active Allergy Reactions Criticality Noted Date Comments Amoxicillin 06/26/2014 Clarithromycin Other (Please comment) High 01/16/2023 Heart racing Dextromethorphan Hives High 01/16/2023 Doxylamine Hives High 01/16/2023 Food (See Comments) Hives 06/20/2023 Agrivi's brand 7 Grain Bread Latex 06/18/2014 Cwwyhcbxa-Nlizvkcfte-Cn-Ap ap Edema face/lips/tongue,It katie High 11/11/2010 Sulfa Antibiotics Other (Please comment),Rash 08/03/2000 malaise documented as of this encounter (statuses as of 10/13/2023) Medications Medication Sig Dispensed Refills Start Date [...] greater than 300 (units): 8 1 Each 4 Active LiquaCel Oral Liquid Take 30 mL by mouth in the morning and 30 mL before bedtime. 1800 mL 11 4 025 Active Insulin Glargine 100 UNIT/ML Subcutaneous Solution (Lantus) Inject 10 Units under the skin at bedtime. 1 Each 4 Active Albuterol Sulfate HFA 108 (90 Base) MCG/ACT Inhalation Aerosol Solution Inhale 2 Puffs by mouth every 6 hours as needed for Dyspnea. 18 g 4 Active Levothyroxine Sodium 175 MCG Oral [...] 50 MCG/ACT Nasal Suspension (Flonase) Administer 1 [place] into nostril in the morning. Active Folic [...] needed for Constipation. 12 Suppository 4 Active amLODIPine Besylate 10 MG Oral Tablet (Norvasc) Take 1 Tablet by mouth in the morning. Discontinued Lisinopril 40 MG Oral Tablet Take 1 Tablet by mouth in the morning. 30 Tablet 3 4 Discontinued Potassium Chloride ER 10 MEQ Oral Tablet Extended Release Take 2 Tablets by mouth in the morning. 60 Tablet 3 4 024 Discontinued Bumetanide 2 MG Oral Tablet Take 1 Tablet by mouth in the morning. 024 Discontinued meropenem 1 G in 50 ml 1 G/50ml IV Administer 50 mL intravenously in the morning and 50 mL at noon and 50 mL before bedtime. 4 024 Discontinued documented as of this encounter (statuses as of 10/13/2023) Active Problems Problem Noted Date Diagnosed Date [...] as of this encounter (statuses as of 10/13/2023) Resolved Problems Problem Noted Date Diagnosed Date [...] as of this encounter (statuses as of 10/13/2023) Immunizations Name Administration Dates Next Due PPD [...] Sign Reading Time Taken Comments Blood Pressure 146/65 08/31/2023 10:51 AM EDT Pulse 67 08/31/2023 10:51 AM EDT Temperature 36.5 C (97.7 F) 08/31/2023 1 0:51 AM EDT Respiratory Rate 18 08/31/2023 10:5 1 AM EDT Oxygen Saturation - - Inhaled Oxygen Concentration - - Weight 134.4 kg (296 lb 4.8 oz) 08/31/2023 10:51 AM EDT non ambulatory. weight per SNF Height - - Body Mass Index 54.19 08/15/2023 6:25 AM EDT documented in this encounter Functional Status Functional Status Response Date of Assess ment Are you deaf or do you have serious difficulty h earing? No 08/15/2023 Are you blind or do you have serious difficulty seeing, even when wearing glasses? No 08/15/2023 Do you have serious difficul ty walking or climbing stairs? (5 years old or older) Yes 08/15/2023 Do you have difficulty dress ing or bathing? (5 years old or older) No 08/15/2023 Because of a physical, menta l, or emotional condition, do you have difficulty doing errands alone such as visiting a doctor s office or shopping? (15 years old or older) Yes 08/15/19 Cognitive Status Response Date of Assessm ent Because of a physical, menta l, or emotional condition, do you have serious difficulty concentrating, remembering, or making decisions? (5 years old or older) No 08/15/2023 documented as of this encounter Progress Notes * Ricky Carnes MD - 08/31/2023 10:47 AM EDT INFECTIOUS DISEASE YARY PARNELL: HPI: Ms. Smith is a 63 y/o woman w/ hx of IDDM2, HFpEF, and GERD who is presenting to our clinic today forf/u on the management of Rt calcaneal osteo. She is known to ID service for R heel OM s/p bone bx (06/06/23: bone culture grew MSSA). She was given a course of cefazolin, completed on 07/23/23. However, she presumably had relapsed vs persistent infection, requiring hospitalization at [facility] and resectio n of the calcaneum. She was discharged on meropenem after being seen by ID at [facility] (Dr. Garcia) was sent out on 6 weeks of Meropenem which she completed on 08/02/2023. During today's encounter, she mentioned that her heel wound has been healing well and she follows closely with wound care at [facility]. No reported fever or chills. Review of patient's allergies indicates: Allergen Reactions Clarithromycin Other (Please comment) Heart racing Dextromethorphan Hives Doxylamine Hives Savkocixg-Sopjxuqduk-Zu-Apap Edema face/lips/tongue and Itching Amoxicillin Food (See Comments) Hives Umesh's brand 7 Grain Bread Latex Sulfa Antibiotics [...] mouth in the morning. 30 Tablet 3 amLODIPine Besylate 10 MG Oral Tablet (Norvasc) Take 1 Tablet by mouth in the morning. Lisinopril 40 MG Oral Tablet Take 1 Tablet by mouth in the morning. 30 Tablet 3 Potassium Chloride ER 10 MEQ Oral Tablet Extended Release Take 2 Tablets by mouth in the morning. 60 Tablet 3 Acetaminophen 325 MG Oral Tablet (Tylenol) Take 2 Tablets by mouth every 6 hours as needed for Pain, Mild, Pain, Moderate or Pain, Severe. Bumetanide 2 MG Oral Tablet Take 1 Tablet by mouth in the morning. Cholecalciferol 10 MCG (400 UNIT) Oral Tablet (Vitamin D3) Take 50 Tablets by mouth in the morning. Ferrous Sulfate 325 (65 Fe) MG Oral Tablet (Feosol) Take 1 Tablet by mouth daily with breakfast. Fluticasone Propionate 50 MCG/ACT Nasal Suspension (Flonase) Administer 1 [place] into nostril in themorning. Folic Acid 1 MG Oral Tablet Take 1 Tablet by mouth in the morning. Loratadine 5 MG OR TABS Take 1 Tablet by mouth in the morning. meropenem 1 G in 50 ml 1 G/50ml IV Administer 50 mL intravenously in the morning and 50 mL at noon and 50 mL before bedtime. metOLazone 2.5 MG Oral Tablet (Zaroxolyn) Take [...] as needed for Constipation. 12 Suppository 0 No current facility-administered medications for this visit. Patient Active Problem List Diagnosis Type 2 diabetes mellitus, with long-term current use of insulin ([facility]) Hypertension Hypothyroid Acute on chronic heart failure with preserved ejection fraction (HFpEF) (HCC) Mitral valve insufficiency Mild tricuspid regurgitation Moderate pulmonary hypertension (HCC) AV junctional rhythm Chronic kidney disease, stage IV (severe) (HCC) Morbid obesity (HCC) Mild mitral stenosis Moderate tricuspid regurgitation Atypical chest pain (HFpEF) heart failure with preserved ejection fraction (HCC) Anxiety Diabetic ulcer of right heel (HCC) Ambulatory dysfunction Fibromyalgia Gastroesophageal reflux disease Anasarca Osteomyelitis of right foot (HCC) Iron deficiency anemia Elevated troponin Demand ischemia (HCC) Hyperkalemia Hyponatremia Hypoalbuminemia Bifascicular bundle branch block Rhinovirus infection Review of Systems: Neg except for what was mentioned in H&P. LMP 11/22/2002 PHYSICAL EXAM: General: obese lady, sitting in chair comfortably and in no acute respiratory or pain distress. Cardiac: Regular heart rate with no murmurs, gallops, or rubs. Both, S1 and S2 are heard. Respiratory: The chest wall is symmetric and without deformity. Good bilateral air entry with no wheezes or crackles. Genital/Rectal: No Pruett in place. Extremities/Skin: heel wound around 7 cm in diameter with base full of granulation tissue. Neurological: The patient is awake, alert and oriented to person, place, and time with normal speech. Psychiatric: Appropriate mood and affect. Good judgement and insight. ASSESSMENT: 1) Rt heel osteomyelitis 2) S/P partial calcanectomy by podiatry at [facility] on 08/19/2023 3) Type 2 diabetes with neuropathy PLAN: - She was appropriately treated for her osteomyelitis and the wound has been healing well. Therefore, no further need for antibiotics. Follow up: as needed Ricky Carnes MD Infectious Disease [address] [address] documented in this encounter Plan of Treatment Upcoming Encounters Date Type Department Care Team (Late st Contact Info) Description 11/13/2023 11:00 AM EDT Office Visit Infectious Disease, [address] [address] Ricky Carnes MD [address] [place] [address] 12/25/2023 10:00 AM EDT Office Visit Nephrology, Katerin Wolf [address] [facility] [place] [address] Joslyn Barney MD [address] [facility] [place] [address] Health Maintenance Due Date Last Done Comments [...] 10/04/2023, 05/11, 11/19/2018, Additional history exists GFR 04/13/2024 10/12/2023, 09/11, 10/10/2023, Additional history exists TSH 06/26/2024 06/27/2023, 0 07/2023, 06/02/2023, Additional history exists Nephrology Referral 09/16/2024 09/17/2023 PTH 09/30/2024 10/01/2023 Phosphate 10/09/2024 10/10/2023, 09/10, 08/21/2023, Additional history exists Hgb 10/11/2024 10/12/2023, 09/11, 10/09/2023, Additional history exists HPV (Gardasil) Vaccine Aged [...] as of this encounter Visit Diagnoses Diagnosis Osteomyelitis of right foot, unspecified type (HCC)- Primary Type 2 diabetes mellitus with peripheral neuropathy (HCC) documented in this encounter Additional Health Concerns Infection Onset Date Last Indicated Resolved Time Enterovirus (resp)/Rhinovirus 08/20/2023 08/20/2023 09/07/2023 11:06 AM EDT documented as of this encounter Advance Directives Documents on File Type Date Recorded Patient Traffic Maintenance Supervisor Expl anation POLST 10/10/2023 signed on 08/21 [...] Advance Directives occurred with: Patient Care Teams Library Manager Relationship Specialty Start Date End Date Natali Langston DO [facility] [address] [place] [address] PCP - General Family Medicine 06/18/14 09/09/23 documented as of this encounter
--- OUTSIDE RECORDS SUMMARY | 2023-12-08 02:50 | External Medical Summary ---
Author Name Unknown Address Unknown Organization : Laboratory Report Ordering Provider Test Date Status VITO MENDOZA 10/06/2023 11:36:17 Final Observation Date Value Abnormality Reference (Units ) Status Glucose Point of Care 10/06/2023 11:36:17 150 Above high normal 70-120 (mg/dL) Final Performing Location
--- OUTSIDE RECORDS SUMMARY | 2023-12-08 02:50 | External Medical Summary ---
Author Name Unknown Address Unknown Organization K1F:LABORATORY [facility] - [address] [place] [address] Laboratory Report Ordering Provider Test Date Status VITO MENDOZA 10/08/2023 05:46:00 Final Observation Date Value Abnormality Reference (Units ) Status WBC, Total 10/08/2023 05:46:00 15.17 Above high normal 4.00-10.80 (K/uL) Final RBC 10/08/2023 05:46:00 2.62 3.85-5.15 (M/uL) Final Hemoglobin 10/08/2023 05:46:00 7.4 Below low normal 12.0-15.3 (g/dL) Final HCT 10/08/2023 05:46:00 23.1 Below low normal 36.0-45.2 (%) Final MCV 10/08/2023 05:46:00 88.2 81.5-97.5 (fL) Final MCH 10/08/2023 05:46:00 28.2 27.0-34.0 (pg) Final MCHC 10/08/2023 05:46:00 32.0 32.0-36.0 (g/dL) Final RDW 10/08/2023 05:46:00 15.0 11.5-15.5 (%) Final Platelets 10/08/2023 05:46:00 321 140-400 (K/uL) Final MPV 10/08/2023 05:46:00 11.4 6.6-11.1 (fL) Final Nucleated erythrocytes/100 leukocytes [Ratio] in Blood by Automated count 10/08/2023 05:46:00 0 <=0 (/100 WBCs) Final Performing Location LABORATORY [facility] - [address] [place] [address]
--- OUTSIDE RECORDS SUMMARY | 2023-12-08 02:50 | External Medical Summary ---
Author Name Unknown Address Unknown Organization : Laboratory Report Ordering Provider Test Date Status VITO MENDOZA 10/08/2023 16:28:04 Final Observation Date Value Abnormality Reference (Units ) Status Glucose Point of Care 10/08/2023 16:28:04 176 Above high normal 70-120 (mg/dL) Final Performing Location
--- OUTSIDE RECORDS SUMMARY | 2023-12-08 02:50 | External Medical Summary ---
Author Name Unknown Address Unknown Organization K1F:LABORATORY [facility] - [address] [place] [address] Laboratory Report Ordering Provider Test Date Status VITO MENDOZA 10/07/2023 03:44:00 Final Observation Date Value Abnormality Reference (Units ) Status WBC, Total 10/07/2023 03:44:00 15.88 Above high normal 4.00-10.80 (K/uL) Final RBC 10/07/2023 03:44:00 2.85 3.85-5.15 (M/uL) Final Hemoglobin 10/07/2023 03:44:00 8.0 Below low normal 12.0-15.3 (g/dL) Final HCT 10/07/2023 03:44:00 25.1 Below low normal 36.0-45.2 (%) Final MCV 10/07/2023 03:44:00 88.1 81.5-97.5 (fL) Final MCH 10/07/2023 03:44:00 28.1 27.0-34.0 (pg) Final MCHC 10/07/2023 03:44:00 31.9 32.0-36.0 (g/dL) Final RDW 10/07/2023 03:44:00 15.0 11.5-15.5 (%) Final Platelets 10/07/2023 03:44:00 321 140-400 (K/uL) Final MPV 10/07/2023 03:44:00 11.2 6.6-11.1 (fL) Final Nucleated erythrocytes/100 leukocytes [Ratio] in Blood by Automated count 10/07/2023 03:44:00 0 <=0 (/100 WBCs) Final Performing Location LABORATORY [facility] - [address] [place] [address]
--- OUTSIDE RECORDS SUMMARY | 2023-12-08 02:50 | External Medical Summary ---
Author Name Unknown Address Unknown Organization : Laboratory Report Ordering Provider Test Date Status VITO MENDOZA 10/07/2023 11:31:57 Final Observation Date Value Abnormality Reference (Units ) Status Glucose Point of Care 10/07/2023 11:31:57 218 Above high normal 70-120 (mg/dL) Final Performing Location
--- OUTSIDE RECORDS SUMMARY | 2023-12-08 02:50 | External Medical Summary ---
Author Name Unknown Address Unknown Organization K1F:LABORATORY [facility] - [address] [place] [address] Laboratory Report Ordering Provider Test Date Status VITO MENDOZA 10/06/2023 04:23:00 Final Less than 0.5 ng/mL: Low ris [...] [Mass/volume] in Serum or Plasma by Immunoassay 10/06/2023 04:23:00 0.98 Above high normal <0.10 (ng/mL) Final Performing Location LABORATORY [facility] - [address] [place] [address]
--- OUTSIDE RECORDS SUMMARY | 2023-12-08 02:50 | External Medical Summary ---
Author Name Unknown Address Unknown Organization K1F:LABORATORY [facility]OD [facility] - [address] [place] [address] Laboratory Report Ordering Provider Test Date Status VITO MENDOZA 10/07/2023 03:44:00 Final Observation Date Value Abnormality Reference (Units ) Status ABO 10/07/2023 03:44:00 A Final RH 10/07/2023 03:44:00 Positive Final RED BLOOD CELL ANTIBODY SCREEN 10/07/2023 03:44:00 Negative Final SPECIMEN EXPIRATION DATE 10/07/2023 03:44:00 10/10/2023 23:59 Final Performing Location LABORATORY [facility]OD [facility] - [address] [place] [address]
--- OUTSIDE RECORDS SUMMARY | 2023-12-08 02:50 | External Medical Summary ---
Author Name Unknown Address Unknown Organization K1F:LABORATORY [facility] - [address] [place] [address] Laboratory Report Ordering Provider Test Date Status REJIVENKATASHERMAN 10/07/2023 03:44:00 Final Observation Date Value Abnormality Reference (Units ) Status BUN 10/07/2023 03:44:00 108 Above high normal 6-20 (mg/dL) Final Creatinine 10/07/2023 03:44:00 3.0 Above high normal 0.5-1.0 (mg/dL) Final Glomerular filtration rate/1.73 sq M.predicted [Volume Rate/Area] in Serum, Plasma or Blood by Creatinine-based formula (CKD-EPI) 10/07/2023 03:44:00 17 Below low normal >=60 (mL/min) Final eGFR is calculated based on the CKD-EPI 2020 equation. Sodium 10/07/2023 03:44:00 131 Below low normal 135 -146 (mmol/L) Final Potassium 10/07/2023 03:44:00 3.7 3.5-5.1 (m mol/L) Final Cl 10/07/2023 03:44:00 94 Below low normal 98- 107 (mmol/L) Final CO2 10/07/2023 03:44:00 24 22-32 (mmo l/L) Final Anion gap 10/07/2023 03:44:00 13 7-15 (mmol /L) Final Glucose 10/07/2023 03:44:00 131 Above high normal 70 -120 (mg/dL) Final Calcium 10/07/2023 03:44:00 8.4 8.4-10.2 ( mg/dL) Final Performing Location LABORATORY [facility] - [address] [place] [address]
--- OUTSIDE RECORDS SUMMARY | 2023-12-08 02:50 | External Medical Summary ---
Author Name Unknown Address Unknown Organization K1F:LABORATORY [facility] - [address] [place] [address] Laboratory Report Ordering Provider Test Date Status VENKATA MENDOZASHERMAN 10/08/2023 05:46:00 Final Observation Date Value Abnormality Reference (Units ) Status BUN 10/08/2023 05:46:00 106 Above high normal 6-20 (mg/dL) Final Creatinine 10/08/2023 05:46:00 2.9 Above high normal 0.5-1.0 (mg/dL) Final Glomerular filtration rate/1.73 sq M.predicted [Volume Rate/Area] in Serum, Plasma or Blood by Creatinine-based formula (CKD-EPI) 10/08/2023 05:46:00 18 Below low normal >=60 (mL/min) Final eGFR is calculated based on the CKD-EPI 2020 equation. Sodium 10/08/2023 05:46:00 130 Below low normal 135 -146 (mmol/L) Final Potassium 10/08/2023 05:46:00 4.0 3.5-5.1 (m mol/L) Final Cl 10/08/2023 05:46:00 95 Below low normal 98- 107 (mmol/L) Final CO2 10/08/2023 05:46:00 25 22-32 (mmo l/L) Final Anion gap 10/08/2023 05:46:00 10 7-15 (mmol /L) Final Glucose 10/08/2023 05:46:00 148 Above high normal 70 -120 (mg/dL) Final Calcium 10/08/2023 05:46:00 8.5 8.4-10.2 ( mg/dL) Final Performing Location LABORATORY [facility] - [address] [place] [address]
--- OUTSIDE RECORDS SUMMARY | 2023-12-08 02:50 | External Medical Summary ---
Author Name Unknown Address Unknown Organization : Laboratory Report Ordering Provider Test Date Status VITO MENDOZA 10/08/2023 11:45:37 Final Observation Date Value Abnormality Reference (Units ) Status Glucose Point of Care 10/08/2023 11:45:37 125 Above high normal 70-120 (mg/dL) Final Performing Location
--- OUTSIDE RECORDS SUMMARY | 2023-12-08 02:50 | External Medical Summary ---
Author Name Unknown Address Unknown Organization K1F:LABORATORY [facility] - [address] [place] [address] Laboratory Report Ordering Provider Test Date Status VITO MENDOZA 10/08/2023 05:46:00 Final Observation Date Value Abnormality Reference (Units ) Status Magnesium 10/08/2023 05:46:00 1.7 1.5-2.6 (m g/dL) Final Performing Location LABORATORY [facility] - [address] [place] [address]
--- OUTSIDE RECORDS SUMMARY | 2023-12-08 02:50 | External Medical Summary ---
Author Name Unknown Address Unknown Organization K1F:LABORATORY [facility] - [address] [place] [address] Laboratory Report Ordering Provider Test Date Status VITO MENDOZA 10/07/2023 03:44:00 Final Observation Date Value Abnormality Reference (Units ) Status Magnesium 10/07/2023 03:44:00 1.8 1.5-2.6 (m g/dL) Final Performing Location LABORATORY [facility] - [address] [place] [address]
--- OUTSIDE RECORDS SUMMARY | 2023-12-08 02:50 | External Medical Summary ---
Author Name Unknown Address Unknown Organization K1F:LABORATORY [facility] - [address] [place] [address] Laboratory Report Ordering Provider Test Date Status VITO MENDOZA 10/09/2023 04:56:00 Final Observation Date Value Abnormality Reference (Units ) Status Magnesium 10/09/2023 04:56:00 1.7 1.5-2.6 (m g/dL) Final Performing Location LABORATORY [facility] - [address] [place] [address]
--- OUTSIDE RECORDS SUMMARY | 2023-12-08 02:50 | External Medical Summary ---
Author Name Unknown Address Unknown Organization K1F:LABORATORY [facility] - [address] [place] [address] Laboratory Report Ordering Provider Test Date Status VITO MENDOZA 10/07/2023 03:44:00 Final Less than 0.5 ng/mL: Low ris [...] [Mass/volume] in Serum or Plasma by Immunoassay 10/07/2023 03:44:00 0.69 Above high normal <0.10 (ng/mL) Final Performing Location LABORATORY [facility] - [address] [place] [address]
--- OUTSIDE RECORDS SUMMARY | 2023-12-08 02:50 | External Medical Summary ---
Author Name Unknown Address Unknown Organization : Laboratory Report Ordering Provider Test Date Status VITO MENDOZA 10/08/2023 08:36:50 Final Observation Date Value Abnormality Reference (Units ) Status Glucose Point of Care 10/08/2023 08:36:50 122 Above high normal 70-120 (mg/dL) Final Performing Location
--- OUTSIDE RECORDS SUMMARY | 2023-12-08 02:50 | External Medical Summary ---
Author Name Unknown Address Unknown Organization : Laboratory Report Ordering Provider Test Date Status VIOT MENDOZA 10/07/2023 21:36:40 Final Observation Date Value Abnormality Reference (Units ) Status Glucose Point of Care 10/07/2023 21:36:40 260 Above high normal 70-120 (mg/dL) Final Performing Location
--- OUTSIDE RECORDS SUMMARY | 2023-12-08 02:50 | External Medical Summary ---
Author Name Unknown Address Unknown Organization : Laboratory Report Ordering Provider Test Date Status VITO MENDOZA 10/07/2023 16:53:39 Final Observation Date Value Abnormality Reference (Units ) Status Glucose Point of Care 10/07/2023 16:53:39 187 Above high normal 70-120 (mg/dL) Final Performing Location
--- OUTSIDE RECORDS SUMMARY | 2023-12-08 02:50 | External Medical Summary ---
Author Name Unknown Address Unknown Organization K1F:LABORATORY [facility] - [address] [place] [address] Laboratory Report Ordering Provider Test Date Status REJIVENKATASHERMAN 10/09/2023 04:56:00 Final Observation Date Value Abnormality Reference (Units ) Status BUN 10/09/2023 04:56:00 101 Above high normal 6-20 (mg/dL) Final Creatinine 10/09/2023 04:56:00 2.6 Above high normal 0.5-1.0 (mg/dL) Final Glomerular filtration rate/1.73 sq M.predicted [Volume Rate/Area] in Serum, Plasma or Blood by Creatinine-based formula (CKD-EPI) 10/09/2023 04:56:00 20 Below low normal >=60 (mL/min) Final eGFR is calculated based on the CKD-EPI 2020 equation. Sodium 10/09/2023 04:56:00 132 Below low normal 135 -146 (mmol/L) Final Potassium 10/09/2023 04:56:00 4.0 3.5-5.1 (m mol/L) Final Cl 10/09/2023 04:56:00 95 Below low normal 98- 107 (mmol/L) Final CO2 10/09/2023 04:56:00 24 22-32 (mmo l/L) Final Anion gap 10/09/2023 04:56:00 13 7-15 (mmol /L) Final Glucose 10/09/2023 04:56:00 187 Above high normal 70 -120 (mg/dL) Final Calcium 10/09/2023 04:56:00 8.8 8.4-10.2 ( mg/dL) Final Performing Location LABORATORY [facility] - [address] [place] [address]
--- OUTSIDE RECORDS SUMMARY | 2023-12-08 02:50 | External Medical Summary ---
Author Name Unknown Address Unknown Organization : Laboratory Report Ordering Provider Test Date Status VITO MENDOZA 10/08/2023 21:16:08 Final Observation Date Value Abnormality Reference (Units ) Status Glucose Point of Care 10/08/2023 21:16:08 184 Above high normal 70-120 (mg/dL) Final Performing Location
--- OUTSIDE RECORDS SUMMARY | 2023-12-08 02:50 | External Medical Summary ---
Author Name Unknown Address Unknown Organization K1F:LABORATORY [facility] - [address] [place] [address] Laboratory Report Ordering Provider Test Date Status VITO MENDOZA 10/07/2023 03:44:00 Final Warfarin Therapy
INR: 2 .0-3.0 conventional anticoagulation
INR: 2.5- 3.5 high intensity anticoagulation Observation Date Value Abnormality Reference (Units ) Status PT 10/07/2023 03:44:00 16.1 Above high normal 11 .6-15.2 (seconds) Final INR 10/07/2023 03:44:00 1.3 Above high normal 0. 8-1.2 Final Performing Location LABORATORY [facility] - [address] [place] [address]
--- OUTSIDE RECORDS SUMMARY | 2023-12-08 02:50 | External Medical Summary ---
Author Name Unknown Address Unknown Organization : Laboratory Report Ordering Provider Test Date Status VITO MENDOZA 10/09/2023 07:42:05 Final Observation Date Value Abnormality Reference (Units ) Status Glucose Point of Care 10/09/2023 07:42:05 151 Above high normal 70-120 (mg/dL) Final Performing Location
--- OUTSIDE RECORDS SUMMARY | 2023-12-08 02:50 | External Medical Summary ---
Author Name Unknown Address Unknown Organization : Laboratory Report Ordering Provider Test Date Status VITO MENDOZA 10/06/2023 21:29:37 Final Observation Date Value Abnormality Reference (Units ) Status Glucose Point of Care 10/06/2023 21:29:37 157 Above high normal 70-120 (mg/dL) Final Performing Location
--- OUTSIDE RECORDS SUMMARY | 2023-12-08 02:50 | External Medical Summary ---
Author Name Unknown Address Unknown Organization K01:LABORATORY [facility] - [address] [place] [address] Laboratory Report Ordering Provider Test Date Status REJIVITO 10/08/2023 05:46:00 Final Observation Date Value Abnormality Reference (Units ) Status Ferritin 10/08/2023 05:46:00 1280 Above high normal 13 -150 (ng/mL) Final Postmenopausal women have hi gher ferritin levels than pre-menopausal women. The above reference interval is based on pre-menopausal women. Performing Location LABORATORY [facility] - [address] [place] [address]
--- OUTSIDE RECORDS SUMMARY | 2023-12-08 02:50 | External Medical Summary ---
Author Name Unknown Address Unknown Organization : Laboratory Report Ordering Provider Test Date Status VITO MENDOZA 10/06/2023 16:32:39 Final Observation Date Value Abnormality Reference (Units ) Status Glucose Point of Care 10/06/2023 16:32:39 203 Above high normal 70-120 (mg/dL) Final Performing Location
--- OUTSIDE RECORDS SUMMARY | 2023-12-08 02:50 | External Medical Summary ---
Author Name Unknown Address Unknown Organization K1F:LABORATORY [facility] - [address] [place] [address] Laboratory Report Ordering Provider Test Date Status VITO MENDOZA 10/06/2023 04:23:00 Final Exclude Heart Failure: <300 pg/mL
Diagnose Heart Failure:
Age <50 yr: >450 pg/mL
50-75 yr: >900 pg/mL
>75 yr: >1800 pg/mL
GFR is 30-59 mL/min: >1200 pg/mL or Age- adjusted values
GFR <30 mL/min: do not use, not reliable

Prognostic threshold: 1000 pg/mL Observation Date Value Abnormality Reference (Units ) Status BNP, Pro-hormone 10/06/2023 04:23:00 5891 Above high no rmal <300 (pg/mL) Final Performing Location LABORATORY [facility] - [address] [place] [address]
--- OUTSIDE RECORDS SUMMARY | 2023-12-08 02:50 | External Medical Summary ---
Author Name Unknown Address Unknown Organization K01:LABORATORY [facility] - [address] [place] [address] Laboratory Report Ordering Provider Test Date Status VITO MENDOZA 10/08/2023 05:46:00 Final Observation Date Value Abnormality Reference (Units ) Status Vitamin B12 10/08/2023 05:46:00 1779 Above high normal 232-1245 (pg/mL) Final Performing Location LABORATORY [facility] - [address] [place] [address]
--- OUTSIDE RECORDS SUMMARY | 2023-12-08 02:50 | External Medical Summary ---
Author Name Unknown Address Unknown Organization K01:LABORATORY [facility] - [address] [place] [address] Laboratory Report Ordering Provider Test Date Status VITO MENDOZA 10/08/2023 05:46:00 Final Observation Date Value Abnormality Reference (Units ) Status Iron 10/08/2023 05:46:00 34 33-151 (ug/dL) Final Iron-binding capacity 10/08/2023 05:46:00 184 Below low normal 250-425 (ug/dL) Final Transferrin Sat % 10/08/2023 05:46:00 18 15-55 (%) Final Performing Location LABORATORY [facility] - [address] [place] [address]
--- OUTSIDE RECORDS SUMMARY | 2023-12-08 02:50 | External Medical Summary | Summary of Care ---
Author Name Unknown Organization [facility] Address [address] [place] [address] Phone [phone] Care Team Providers Care Mica Miner Blasting Name Role Phone Paco Cordero MD Primary Care Provider + [phone] Reason for Visit * Reason Onset Date Comments Appointment 10/09/2023 Replace midline Encounter Details Date Type Department Care Team (Late st Contact Info) Description 10/09/2023 Telephone [facility] Discharge Follow-Up [address] [place] [address] Ayana Summers MD [address] [facility] [place] [address] Appointment (Replace midline) Allergies Active Allergy Reactions Criticality Noted Date Comments Amoxicillin 06/26/2014 Clarithromycin Other (Please comment) High 01/16/2023 Heart racing Dextromethorphan Hives High 01/16/2023 Doxylamine Hives High 01/16/2023 Food (See Comments) Hives 06/20/2023 [employer] brand 7 Grain Bread Latex 06/18/2014 Cvvgigtms-Incvbzvxzh-Qj-Ap ap Edema face/lips/tongue,It katie High 11/11/2010 Sulfa [...] 50 MCG/ACT Nasal Suspension (Flonase) Administer 1 Marion into nostril in the morning. Active Folic [...] of Breath. 360 mL 11 10/09/2023 Active documented as of this encounter (statuses [...] encounter Miscellaneous Notes * Telephone Encounter - Ayana Summers MD - 10/09/2023 10:29 AM EDT PLEASE SCHEDULE PATIENT FOR MIDLINE REMOVAL AND REPLACEMENT> She is at [facility] AND WILL NEED TO UPDATED ON APPT TIME and DATE Orders only. Need supportive care plan for midline switch. Patient had midline placed on 10/02- in [...] Follow up in 3-5 weeks with ID documented in this encounter Plan of Treatment Upcoming Encounters Date Type Department Care Team (Late st Contact Info) Description 11/13/2023 11:00 AM EDT Office Visit Infectious Disease, [address] [address] Ricky Carnes MD [address] [place] [address] 12/25/2023 10:00 AM EDT Office Visit Nephrology, Katerin Wolf [address] [place] [address] Joslyn Barney MD [address] [facility] [address] [place], [place] [address] Health Maintenance Due Date Last Done Comments [...] this encounter Visit Diagnoses Diagnosis Osteomyelitis of foot, right, acute (HCC)- Primary Acute osteomyelitis, ankle and foot Receiving intravenous antibiotic treatment as outpatient Encounter for long-term (current) use of antibiotics documented in this encounter Additional Health Concerns Infection Onset Date Last Indicated Resolved Time Enterovirus (resp)/Rhinovirus 10/03/2023 10/03/2023 documented as of this encounter Advance Directives Documents on File Type Date Recorded Patient Merchandising Execution Associate Expl anation POLST 08/16/2023 signed on 08/12 [place] ORDERS FOR LIFE-SUSTAINING TREATMENT POLST 06/17/2023 [place] OR DERS FOR LIFE-SUSTAINING TREATMENT; sign on 06/14/23 * Full Code (Latest Code Status on File) Date Activated Date Inactivated Comments 10/03/2023 7:52 PM This order ref lects the patients wishes and were consensually agreed [...] Advance Directives occurred with: Patient Care Teams Mica Miner Blasting Relationship Specialty Start Date End Date Paco Cordero MD [address] [place] [address] PCP - General Family Medicine 09/10/23 documented as of this encounter
--- OUTSIDE RECORDS SUMMARY | 2023-12-08 02:51 | External Medical Summary ---
Author Name Unknown Address Unknown Organization K01:LABORATORY [facility] - [address] [facility] [address] Laboratory Report Ordering Provider Test Date Status EVY FERNANDEZ 10/04/2023 04:41:00 Final Observation Date Value Abnormality Reference (Units ) Status HbA1C 10/04/2023 04:41:00 7.8 Above high normal 4. 0-5.6 (%) Final The use of HbA1c to monitor glycemic status is based on normal hemoglobin and HbA composition. This test should not be used in patients with abnormal hemoglobin that affects the half life of the red blood cell or the in vivo glycation rates. Glucose, estimated average 10/04/2023 04:41:00 177 Above high normal <126 (mg/dL) Dante paris Performing Location LABORATORY [facility] - [address] [facility] [address]
--- OUTSIDE RECORDS SUMMARY | 2023-12-08 02:51 | External Medical Summary ---
Author Name Unknown Address Unknown Organization K1F:LABORATORY [facility] - [address] [place] [address] Laboratory Report Ordering Provider Test Date Status ERNESTO RAMOS 10/05/2023 06:05:00 Final Observation Date Value Abnormality Reference (Units ) Status Magnesium 10/05/2023 06:05:00 1.8 1.5-2.6 (m g/dL) Final Performing Location LABORATORY [facility] - [address] [place] [address]
--- OUTSIDE RECORDS SUMMARY | 2023-12-08 02:51 | External Medical Summary ---
Author Name Unknown Address Unknown Organization K1F:LABORATORY [address] [place] [address] Laboratory Report Ordering Provider Test Date Status EVY FERNANDEZ 10/03/2023 20:26:00 Final Observation Date Value Abnormality Reference (Units ) Status Bacteria identified in Specimen by Culture 10/03/2023 20:26:00 No growth Final Test: Culture, Blood
Sp ecimen Source: Blood, Venous
Specimen Type: Blood
Specimen Date: 10/03/20232025
Result Date: 10/08/20232101
Result Status: Final result
Resulting Lab: LABORATORY [facility]
[address] [place] [address]
[place] [address]

CULTURE

No growth

null Performing Location LABORATORY [facility] - [address] [place] [address] [address]. [place] [address]
--- OUTSIDE RECORDS SUMMARY | 2023-12-08 02:51 | External Medical Summary ---
Author Name Unknown Address Unknown Organization K01:LABORATORY [facility] - [address] [place] [address] Laboratory Report Ordering Provider Test Date Status ERNESTO RAMOS 10/04/2023 15:01:29 Final Observation Date Value Abnormality Reference (Units ) Status Methicillin resistant Staphylococcus aureus (MRSA) DNA [Presence] in Nose by BLAISE with probe detection 10/04/2023 15:01:29 Negative Negative Final No Methicillin resistant Sta phylococcus aureus detected by PCR (amplified probe). Performing Location LABORATORY [facility] - [address] [place] [address]
--- OUTSIDE RECORDS SUMMARY | 2023-12-08 02:51 | External Medical Summary ---
Author Name Unknown Address Unknown Organization K1F:LABORATORY [facility] [place] [address] Laboratory Report Ordering Provider Test Date Status DENISHA ANDRADE 10/03/2023 16:36:00 Final Observation Date Value Abnormality Reference (Units ) Status WBC, Total 10/03/2023 16:36:00 18.21 Above high normal 4.00-10.80 (K/uL) Final RBC 10/03/2023 16:36:00 3.16 3.85-5.15 (M/uL) Final Hemoglobin 10/03/2023 16:36:00 9.1 Below low normal 12.0-15.3 (g/dL) Final HCT 10/03/2023 16:36:00 27.8 Below low normal 36.0-45.2 (%) Final MCV 10/03/2023 16:36:00 88.0 81.5-97.5 (fL) Final MCH 10/03/2023 16:36:00 28.8 27.0-34.0 (pg) Final MCHC 10/03/2023 16:36:00 32.7 32.0-36.0 (g/dL) Final RDW 10/03/2023 16:36:00 15.1 11.5-15.5 (%) Final Platelets 10/03/2023 16:36:00 306 140-400 (K/uL) Final MPV 10/03/2023 16:36:00 10.8 6.6-11.1 (fL) Final Nucleated erythrocytes/100 leukocytes [Ratio] in Blood by Automated count 10/03/2023 16:36:00 0 <=0 (/100 WBCs) Final Performing Location LABORATORY [facility] - [address] [place] [address]
--- OUTSIDE RECORDS SUMMARY | 2023-12-08 02:51 | External Medical Summary ---
Author Name Unknown Address Unknown Organization K01:LABORATORY [facility] - [address] [facility] [address] [place] [address] Laboratory Report Ordering Provider Test Date Status ERNESTO RAMOS 10/05/2023 13:52:07 Final Observation Date Value Abnormality Reference (Units ) Status Legionella pneumophila 1 Ag [Presence] in Urine 10/05/2023 13:52:07 Negative Negative Final Presumptive negative for L. pneumophila serogroup 1 antigens. A negative result does not rule out the possibility of Legionella infection due to other serogroups or species of Legionella. Performing Location LABORATORY [facility] - [address] [place] [address]
--- OUTSIDE RECORDS SUMMARY | 2023-12-08 02:51 | External Medical Summary ---
Author Name Unknown Address Unknown Organization K1F:LABORATORY [facility] - [address] [place] [address] Laboratory Report Ordering Provider Test Date Status DENISHA ANDRADE 10/03/2023 16:36:00 Final Warfarin Therapy
INR: 2 .0-3.0 conventional anticoagulation
INR: 2.5- 3.5 high intensity anticoagulation Observation Date Value Abnormality Reference (Units ) Status PT 10/03/2023 16:36:00 17.8 Above high normal 11 .6-15.2 (seconds) Final INR 10/03/2023 16:36:00 1.5 Above high normal 0. 8-1.2 Final Performing Location LABORATORY [facility] - [address] [place] [address]
--- OUTSIDE RECORDS SUMMARY | 2023-12-08 02:51 | External Medical Summary ---
Author Name Unknown Address Unknown Organization K1F:LABORATORY [facility] - [address] [place] [address] Laboratory Report Ordering Provider Test Date Status DENISHA ANDRADE 10/03/2023 16:36:00 Final Observation Date Value Abnormality Reference (Units ) Status BUN 10/03/2023 16:36:00 103 Above high normal 6-20 (mg/dL) Final Creatinine 10/03/2023 16:36:00 3.5 Above high normal 0.5-1.0 (mg/dL) Final Glomerular filtration rate/1.73 sq M.predicted [Volume Rate/Area] in Serum, Plasma or Blood by Creatinine-based formula (CKD-EPI) 10/03/2023 16:36:00 14 Below low normal >=60 (mL/min) Final eGFR is calculated based on the CKD-EPI 2020 equation. Sodium 10/03/2023 16:36:00 130 Below low normal 135 -146 (mmol/L) Final Potassium 10/03/2023 16:36:00 4.1 3.5-5.1 (m mol/L) Final Cl 10/03/2023 16:36:00 90 Below low normal 98- 107 (mmol/L) Final CO2 10/03/2023 16:36:00 22 22-32 (mmo l/L) Final Anion gap 10/03/2023 16:36:00 18 Above high normal 7- 15 (mmol/L) Final Glucose 10/03/2023 16:36:00 219 Above high normal 70 -120 (mg/dL) Final Albumin 10/03/2023 16:36:00 2.6 Below low normal 3.8 -5.0 (g/dL) Final AST (Aspartate aminotransferase) 10/03/2023 16:36:00 39 Above high normal 10-35 (U/L) Final Alk Phos 10/03/2023 16:36:00 343 Above high normal 35 -130 (U/L) Final Bilirubin, Total 10/03/2023 16:36:00 0.4 <=1 .2 (mg/dL) Final Calcium 10/03/2023 16:36:00 8.9 8.4-10.2 ( mg/dL) Final Protein 10/03/2023 16:36:00 7.1 6.0-8.3 (g /dL) Final ALT (Alanine aminotransferase) 10/03/2023 16:36:00 17 10-35 (U/L) Dante paris [facility] Location LABORATORY [facility] - [address] [place] [address] [place] [address]
--- OUTSIDE RECORDS SUMMARY | 2023-12-08 02:51 | External Medical Summary ---
Author Name Unknown Address Unknown Organization [id number]:[facility] [place] [address] [facility]. [place] [id number] Laboratory Report Ordering Provider Test Date Status ERNESTO RAMOS 10/05/2023 13:52:07 Final Observation Date Value Abnormality Reference (Units) Status Bacteria identified in Specimen by Culture 10/05/2023 13:52:07 Light growth normal genevieve Final Gram Stain 10/05/2023 13:52:07 Purulent specimen, >25 neutrophils/low power microscopic field. Abnormal Final Gram Stain 10/05/2023 13:52:07 Moderate Polymorphonuclear leukocytes Abnormal Final Gram Stain 10/05/2023 13:52:07 Rare Yeast Abnormal Final Test: Culture, Respiratory, Lower, Aerobic
Specimen Source: Sputum
Specimen Type: Lower Respiratory
Specimen Date: 10/05/2023 1352
Result Date: 10/07/2023 0928
Result Status: Final result
Abnormal: Yes
Resulting Lab: [facility] [place]
[address] [facility]
[place] [address]

CULTURE

Light growth normal genevieve

STAIN

Purulent specimen, >25 neutrophils/low power microscopic field.

Moderate Polymorphonuclear leukocytes

Rare Yeast

null Performing Location [facility] [place] [address] [facility] [address]. [facility] [address]
--- OUTSIDE RECORDS SUMMARY | 2023-12-08 02:51 | External Medical Summary ---
Author Name Unknown Address Unknown Organization : Laboratory Report Ordering Provider Test Date Status ERNESTO RAMOS 10/04/2023 21:28:35 Final Observation Date Value Abnormality Reference (Units ) Status Glucose Point of Care 10/04/2023 21:28:35 173 Above high normal 70-120 (mg/dL) Final Performing Location
--- OUTSIDE RECORDS SUMMARY | 2023-12-08 02:51 | External Medical Summary ---
Author Name Unknown Address Unknown Organization [id number]:LABORATORY [facility] - [address] [place] [address] Laboratory Report Ordering Provider Test Date Status CHANDAN FAJARDO 10/03/2023 16:36:00 Final Observation Date Value Abnormality Reference (Units ) Status Body temperature 10/03/2023 16:36:00 37.0 (C) Final pH of Venous blood 10/03/2023 16:36:00 7.381 7.320-7.430 (units) Final Carbon dioxide [Partial pressure] in Venous blood 10/03/2023 16:36:00 42.1 40.0-60.0 (mmHg) Final Oxygen [Partial pressure] in Venous blood 10/03/2023 16:36:00 33.8 25.0-50.0 (mmHg) Final Base excess, Capillary 10/03/2023 16:36:00 -0.2 -2.0-2.0 (mmol/L) Final Hemoglobin [Mass/volume] in Blood by Oximetry 10/03/2023 16:36:00 9.6 Below low normal 12.0-15.3 (g/dL) Final Oxyhemoglobin, Venous (FO2HB) 10/03/2023 16:36:00 53.5 40.0-85.0 (% total Hgb) Final Carboxyhemoglobin 10/03/2023 16:36:00 1.7 Above high normal <=1.5 (% total Hgb) Final Smokers: 0-9.0 % Methemoglobin 10/03/2023 16:36:00 0.4 <=1.5 (% total Hgb) Final Deoxyhemoglobin/Hemoglobin.t otal in Venous blood 10/03/2023 16:36:00 44.4 (% total Hgb) Jen l Oxygen content in Venous blood 10/03/2023 16:36:00 7.2 7.0-18.0 (%vol) Final Bicarbonate, Venous, POC (i-STAT) 10/03/2023 16:36:00 24.4 23.0-31.0 (mmol/L) [facility] Performing Location [facility] [address] [facility] [address] [place] [address]
--- OUTSIDE RECORDS SUMMARY | 2023-12-08 02:51 | External Medical Summary ---
Author Name Unknown Address Unknown Organization : Laboratory Report Ordering Provider Test Date Status ERNESTO RAMOS 10/05/2023 11:50:20 Final Observation Date Value Abnormality Reference (Units ) Status Glucose Point of Care 10/05/2023 11:50:20 205 Above high normal 70-120 (mg/dL) Final Performing Location
--- OUTSIDE RECORDS SUMMARY | 2023-12-08 02:51 | External Medical Summary | Summary of Care ---
Author Name Unknown Organization [facility] [address] [address] Address [address] [place] [address] Phone [phone] Care Team Providers Care Riveter Name Role Phone Paco Cordero MD Primary Care Provider + [phone] Reason for Visit * Reason Onset Date Comments Scheduling 10/03/2023 midline Encounter Details Date Type Department Care Team (Late st Contact Info) Description 10/03/2023 Telephone Hematology/Oncology, [facility] [address] [place], [place] [phone] Paco Cordero MD [address] [place] [address] [place] [address] Scheduling (midline) Allergies Active Allergy Reactions Criticality Noted Date Comments Amoxicillin 06/26/2014 Clarithromycin Other (Please comment) High 01/16/2023 Heart racing Dextromethorphan Hives High 01/16/2023 Doxylamine Hives High 01/16/2023 Food (See Comments) Hives 06/20/2023 [employer]'s brand 7 Grain Bread Latex 06/18/2014 Lxdmdsosg-Iclgetrykz-Hz-Ap ap Edema face/lips/tongue,It katie High 11/11/2010 Sulfa Antibiotics Other (Please comment),Rash 08/03/2000 malaise documented as of this encounter (statuses as of 10/04/2023) Medications Medication Sig Dispensed Refills Start Date End Date Status Omeprazole 20 MG Oral Capsule Delayed Release (PriLOSEC) Take 1 Capsule by mouth daily before breakfast. 30 Capsule 3 4 Suspended Additional Information Amitriptyline HCl 100 MG Oral Tablet (Elavil) Take 1 Tablet by mouth every night at bedtime. 30 Tablet 3 4 Suspended Additional Information hydrOXYzine HCl 50 MG Oral Tablet Take 1 Tablet by mouth every 8 hours as needed for Anxiety. 30 Tablet 4 Suspended Additional Information Insulin Aspart 100 UNIT/ML Subcutaneous Solution (NovoLOG) Glucose 80-150 (units): 0 Glucose 151-200 (units): 2 Glucose 201-250 (units): 4 Glucose 251-300 (units): 6 Glucose greater than 300 (units): 8 1 Each 4 Suspended Additional Information LiquaCel Oral Liquid [...] as needed for Dyspnea. 18 g 4 Suspended Additional Information Levothyroxine Sodium 175 MCG Oral Tablet (Levoxyl) Take 1 Tablet by mouth in the morning. (at least 30 min prior to breakfast or other meds). 30 Tablet 3 4 Suspended Additional Information Simvastatin 40 MG Oral Tablet (Zocor) Take 1 Tablet by mouth in the morning. 30 Tablet 4 Suspended Additional Information amLODIPine Besylate 10 MG Oral Tablet (Norvasc) Take 1 Tablet by mouth in the morning. Suspended Lisinopril 40 MG Oral Tablet Take 1 Tablet by mouth in the morning. 30 Tablet 4 Suspended Additional Information Potassium Chloride ER 10 MEQ Oral Tablet Extended Release Take 2 Tablets by mouth in the morning. 60 Tablet 3 4 Suspended Additional Information Patient not taking.Reported on 09/17/2023 Acetaminophen 325 MG Oral Tablet (Tylenol) Take 2 Tablets by mouth every 6 hours as needed for Pain, Mild, Pain, Moderate or Pain, Severe. Suspended Cholecalciferol 10 MCG (400 UNIT) Oral Tablet (Vitamin D3) Take 50 Tablets by mouth in the morning. Suspended Ferrous Sulfate 325 (65 Fe) MG Oral Tablet (Feosol) Take 1 Tablet by mouth daily with breakfast. Suspended Fluticasone Propionate 50 MCG/ACT Nasal Suspension (Flonase) Administer 1 [place] into nostril in the morning. Suspended Folic Acid 1 MG Oral Tablet Take 1 Tablet by mouth in the morning. Suspended Loratadine 5 MG OR TABS Take 1 Tablet by mouth in the morning. Suspended meropenem 1 G in 50 ml 1 G/50ml IV Administer 50 mL intravenously in the morning and 50 mL at noon and 50 mL before bedtime. 4 Suspended metOLazone 2.5 MG Oral Tablet (Zaroxolyn) Take 1 Tablet by mouth in the morning. Suspended Magnesium Hydroxide 400 MG/5ML Oral Suspension (Milk of Magnesia) Take 30 mL by mouth daily as needed for Constipation. Suspended Ondansetron HCl 4 MG Oral Tablet (Zofran) Take 1 Tablet by mouth every 8 hours as needed for Nausea. Suspended CYANOCOBALAMIN 250 MCG OR TABS Take 1 Tablet by mouth in the morning. Suspended Diclofenac Sodium 1 % External Gel (Voltaren Arthritis Pain) Apply 1 % topically to affected area 4 times a day as needed for Pain, Moderate or Pain, Severe. Apply to shoulder, affected area Suspended Melatonin 3 MG Oral Tablet Take 1 Tablet by mouth at bedtime. 10 Tablet 4 Suspended Additional Information Gabapentin 100 MG Oral Capsule (Neurontin) Take 1 Capsule by mouth 3 times a day as needed (neuropathicpain). 30 Capsule 4 Suspended Additional Information Sodium Hypochlorite 0.25 % External Solution Apply topically to affected area daily. 473 mL 4 Suspended Additional Information Polyethylene Glycol 3350 17 GM Oral Packet (Miralax) Take 1 Packet by mouth daily as needed for Constipation. 14 Each 4 Suspended Additional Information Sennosides-Docusa te Sodium 8.6-50 MG Oral Tablet (Senokot-S) Take 1 Tablet by mouth 2 times a day as needed for Constipation. 10 Tablet 4 Suspended Additional Information Bisacodyl 5 MG Oral Tablet Delayed Release (Dulcolax) Take 1 Tablet by mouth daily as needed for Constipation. 30 Tablet 4 Suspended Additional Information Bisacodyl 10 MG Rectal Suppository (Dulcolax) Administer 1 Suppository into the rectum daily as needed for Constipation. 12 Suppository 4 Suspended Additional Information Bumetanide 2 MG Oral Tablet Take 1 Tablet by mouth in the morning and 1 Tablet before bedtime. 60 Tablet 5 4 Suspended Additional Information documented as of this encounter (statuses as of 10/04/2023) Active Problems Problem Noted Date Diagnosed Date Other acute osteomyelitis, right ankle and foot 10/03/2023 Acute on chronic respiratory failure with hypoxi a 10/03/2023 Rhinovirus infection 08/21/2023 Elevated troponin 08/16/2023 Demand ischemia 08/16/2023 Hyperkalemia 08/16/2023 Hyponatremia 08/16/2023 Hypoalbuminemia 08/16/2023 Bifascicular bundle branch block 08/16/2023 Anasarca 06/18/2023 Osteomyelitis of right foot 06/18/2023 Iron deficiency anemia 06/18/2023 Atypical chest pain 06/17/2023 HCAP (healthcare-associated pneumonia) (HFpEF) heart failure with [...] as of this encounter (statuses as of 10/04/2023) Resolved Problems Problem Noted Date Diagnosed Date Resolved Date Cellulitis of index finger 06/19/2023 0 06/25/2023 BPPV (benign paroxysmal positional vertigo) 06/17/2023 06/18/2023 Hypokalemia 06/17/2023 06/19/2023 Hypomagnesemia 06/17/2023 06/25/2023 documented as of this encounter (statuses as of 10/04/2023) Immunizations Name Administration Dates Next Due PPD [...] No 08/15/2023 documented as of this encounter Miscellaneous Notes * Telephone Encounter - Zeny Macias LPN - 10/03/2023 11:27 AM EDT Agustina responded. Pt coming via stretcher w/FAME at 1:00 today Katherine w/ JUNIOR team aware and confirmed. * Telephone Encounter - Zeny Macias LPN - 10/03/2023 8:07 AM EDT TT to IV team Talked to Katherine, ok to do today, just not at noon Tried to call Agustina at [facility] but was unable to reach her, will try back * Telephone Encounter - Zeny Macias LPN - 10/03/2023 7:46 AM EDT We received a scanned order for a midline placement The order states: Midline catheter placement for IV antibiotic administration one time only related to other acute osteomyelitis, right ankle and foot (M86.171) for 1 day. I'm not sure if the order is meant for a 1 time midline placement or 1 dose of abx. I spoke with Nancy the DON at [facility] will be getting Meropenem through 10/11. The order was just for a 1 time midline placement. documented in this encounter Plan of Treatment Upcoming Encounters Date Type Department Care Team (Late st Contact Info) Description 12/25/2023 10:00 AM EDT Office Visit Nephrology, Katerin Wolf [address] [place] [address] Joslyn Barney MD [address] [facility] [place] [address] Health Maintenance Due Date Last Done Comments [...] 2) 06/15/2023 04/20/2023 Influenza Vaccine (FLU shot) (#1) 2023 12/18/2017, 10/24/2016, 01/11/2016, Additional history exists HbA1c 12/03/2023 06/02/2023, 11/10, 01/22/2018, Additional history exists GFR 04/05/2024 10/04/2023, 09/10, 10/01/2023, Additional history exists TSH 06/26/2024 06/27/2023, 04/0 07/2023, 06/02/2023, Additional history exists Phosphate 08/20/2024 08/21/2023, 1 07/2023, 06/24/2023, Additional history exists Nephrology Referral 09/16/2024 09/17/2023 PTH 09/30/2024 10/01/2023 Hgb 10/03/2024 10/04/2023, 09/10, 10/03/2023, Additional history exists HPV (Gardasil) Vaccine Aged [...] Documents on File Type Date Recorded 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
--- OUTSIDE RECORDS SUMMARY | 2023-12-08 02:51 | External Medical Summary | Summary of Care ---
Author Name Unknown Organization [facility] Address [address] [place] [address] Phone [phone] Care Team Providers Care Control And Recovery Combat Rescue Name Role Phone Paco Cordero MD Primary Care Provider + [phone] Reason for Visit * Reason Comments Treatment Midline placement Encounter Details Date Type Department Care Team (Late st Contact Info) Description 10/03/2023 1:00 PM EDT Hem/Onc Treatment Hematology/Oncology Treatment, [facility] [address] [place], [place] [phone] [facility], Bed1 Hem Onc [address] [place], [place] [phone] Allergies Active Allergy Reactions Criticality Noted Date Comments Amoxicillin 06/26/2014 Clarithromycin Other (Please comment) High 01/16/2023 Heart racing Dextromethorphan Hives High 01/16/2023 Doxylamine Hives High 01/16/2023 Food (See Comments) Hives 06/20/2023 [employer]'s brand 7 Grain Bread Latex 06/18/2014 Rddshoxav-Mhywwghuhw-Qi-Ap ap Edema face/lips/tongue,It katie High 11/11/2010 Sulfa Antibiotics Other (Please comment),Rash 08/03/2000 malaise documented as of this encounter (statuses as of 10/03/2023) Medications Medication Sig Dispensed Refills Start Date [...] in the morning. 30 Tablet 06/13/2023 Active amLODIPine Besylate 10 MG Oral Tablet (Norvasc) Take 1 Tablet by mouth in the morning. Active Lisinopril 40 MG Oral Tablet Take 1 Tablet by mouth in the morning. 30 Tablet 06/23/2023 Active Potassium Chloride ER 10 MEQ Oral Tablet Extended Release Take 2 Tablets by mouth in the morning. 60 Tablet 06/23/2023 Active Additional Information Patient not taking.Reported on 09/17/2023 [...] 50 MCG/ACT Nasal Suspension (Flonase) Administer 1 [place] into nostril in the morning. Active Folic Acid 1 MG Oral Tablet Take 1 Tablet by mouth in the morning. Active Loratadine 5 MG OR TABS Take 1 Tablet by mouth in the morning. Active meropenem 1 G in 50 ml 1 G/50ml IV Administer 50 mL intravenously in the morning and 50 mL at noon and 50 mL before bedtime. 08/13/2023 Active metOLazone 2.5 MG Oral Tablet (Zaroxolyn) [...] before bedtime. 60 Tablet 5 09/17/2023 Active documented as of this encounter (statuses as of 10/03/2023) Active Problems Problem Noted Date Diagnosed Date Other acute osteomyelitis, right ankle and foot 10/03/2023 Rhinovirus infection 08/21/2023 Elevated troponin 08/16/2023 Demand ischemia 08/16/2023 Hyperkalemia 08/16/2023 Hyponatremia 08/16/2023 Hypoalbuminemia 08/16/2023 Bifascicular bundle branch block 08/16/2023 Anasarca 06/18/2023 Osteomyelitis of right foot 06/18/2023 Iron deficiency anemia 06/18/2023 Atypical chest pain 06/17/2023 (HFpEF) heart failure with preserved ejection fr [...] as of this encounter (statuses as of 10/03/2023) Resolved Problems Problem Noted Date Diagnosed Date Resolved Date Cellulitis of index finger 06/19/2023 0 06/25/2023 Pneumonia of right lower lob e due to infectious organism 06/17/2023 06/18/2023 BPPV (benign paroxysmal positional vertigo) 06/17/2023 06/18/2023 Hypokalemia 06/17/2023 06/19/2023 Hypomagnesemia 06/17/2023 06/25/2023 documented as of this encounter (statuses as of 10/03/2023) Immunizations Name Administration Dates Next Due PPD 10/08/2018 documented as of this encounter Social History Tobacco Use Types Packs/Day Years Used Date Smoking Tobacco: Never Smokeless Tobacco: Never Alcohol Use Standard Drinks/Week Comments No 0 (1 standard drink = 0.6 oz pur e alcohol) Personal Safety Answer Date Recorded Do you feel unsafe or have concerns for your saf ety? No 06/17/2023 Do you have concerns for you r family's safety? (Household - for ages 0-17 years) Not on file 06/17/2023 Utilities Answer Date Recorded Do you have trouble paying y our heating, water, or electric bill? No 06/17/2023 Is your family able to pay t he heat, water, or electric bill? (Household - for ages 0-17 years) Not on file 06/17/2023 Does your family have access to good internet? (Household - for ages 0-17 years) Not on file 06/17/2023 Social Connections Answer Date Recorded How often do you feel lonely or isolated from those around you? (Adult - for ages 18 years and over) Not on file 08/28/2023 Transportation Needs Answer Date Record ed READ ONLY Do you have troubl e getting a ride to medical visits or work? Never True 06/17/2023 Does your family have a hard time getting a ride to doctors visits? (Household - for ages 0-17 years) Not on file 06/17/2023 Has lack of transportation k ept you from medical appointments, meetings, work, or from getting things needed for daily living? Check all that apply. (Adult - for ages 18 years and over) Not on file 06/17/2023 Do you (or your family) have trouble finding or paying for a ride (transportation)? (Household - for ages 0-17 years) Not on file 06/17/2023 Housing Stability Answer Date Recorded Do you currently live in a s helter or have no steady place to sleep at night? (Adult - for ages 18 years and over) Not on file 06/17/2023 READ ONLY Do you think you a re at risk of becoming homeless? No 06/17/2023 Does your family worry about paying for your home or becoming homeless? (Household - for ages 0-17 years) Not on file 0 06/17/2023 Are you homeless or worried that you might be in the future? (Adult - for ages 18 years and over) Not on file Are you (or your family) sammy eless or worried that you might be in the future? (Household - for ages 0-17 years) Not on file Food Insecurity Answer Date Recorded Do you need food for this week? No 06/17/2023 Are you able to get enough f ood for your family? (Household - for ages 0-17 years) Not on file 06/17/2023 Does your family need food t his week? (Household - for ages 0-17 years) Not on file 06/17/2023 Do you always have enough fo od for your family? (Household - for ages 0-17 years) Not on file 06/17/2023 Sex and Gender Information Value Date Recorded [...] No 08/15/2023 documented as of this encounter Nursing Notes * Ifrah Bojorquez RN - 10/03/2023 3:49 PM EDT Patient was requesting to be taken to the ER after her Midline was placed. She stated that she justwanted an ER, she just doesn't feel well. Patient came to the clinic today with oxygen at 4lpm and was coughing. She stated that she didn't want to go back to the Custodial because "they don't take care of me". Patient was taken via stretcher per her request. Care was assumed by Harriet Fulton RN. Ifrah Bojorquez RN 10/03/2023 4:02 PM * Jose E Olivas RN - 10/03/2023 3:06 PM EDT PROCEDURE NOTE - IV Therapy MIDLINE Insertion - [facility] Service [address] [address] Name: Alexandria Smith Location: Room/bed info not found Date: 10/03/2023 Time: 3:00 PM Allergies: Clarithromycin, Dextromethorphan, Doxylamine, Fbqbxujto-fmbsqypmcv-zh-apap, Amoxicillin,Food (see comments), Latex, and Sulfa antibiotics Primary Diagnosis: Osteomyelitis Physician Name and Service ordering MIDLINE: Dr. Paco Cordero Age: [age] year old Sex: female PRIOR TO PROCEDURE: The patient was evaluated prior to the procedure. The patient was identified as Alexandria Smith, and theprocedure verified as MIDLINE insertion. A Time Out was held and the following information confirmed. Verify Correct Patient: Yes Verify Correct Site: Yes Verify Procedure Matches Verbalized Consent: Yes Verify Correct Position: Yes Availability of Necessary Equipment: Yes Other Healthcare Professional(s) Verbalize(s) Agreement with Timeout: Yes Consent Signed: N/A (Verbal consent obtained) Anticoagulation / Antiplatelet: No Site Marked: Yes MIDLINE INSERTION BUNDLE: Mold Shifter Hand Hygiene: alcohol-based hand rub Skin Prep: Chlorhexidine/alcohol (CHG wipes prior to procedure) Barriers Used: Mask: yes Sterile gown: yes Large sterile drape: yes Cap: yes Sterile gloves: yes Insertion Status: new site, micro introduced, ultrasound Indications - include all that apply: Felt Pad Cutter Vascular Access Anesthesia: local Side: left Site: basilic Catheter Type - include all that apply: non-heparin coated, non-antiseptic coated, polyurethane, size: 3Fr Single Lumen Provena Power Length of catheter inserted into patient: Total Length: 18 cm Internal Length: 18 cm External Length: 0 cm Lot # of Catheter: [id number] Arm Circumference: Right: ; Left: 34 Number of attempts: 2 Number of lumen(s): 1 Guidewire intact upon removal: yes Post insertion skin prep completed prior to dressing placement: Chlorhexidine/alcohol Sterile dressing applied: yes PROCEDURE NOTE: Location where procedure performed: IV CLINIC PROCEDURE ROOM Procedure: MIDLINE Insertion Complication/Corrective Action: Depth of vessels causing some difficulty. Comments/Findings: Minimal Blood loss noted. Pt tolerated procedure well. Wire intact upon removal.Brisk blood return and easy flush noted. Inserting Clinician Name: Jose E LONG Assisting by Name: Katherine Thomas RN VAT documented in this encounter Plan of Treatment Upcoming Encounters Date Type Department Care Team (Late st Contact Info) Description 12/25/2023 10:00 AM EDT Office Visit Nephrology, Katerin Wolf [address] [place] [address] Joslyn Barney MD 200 [place] [address] Health Maintenance Due Date Last Done Comments [...] 07/09/2000, Additional history exists COVID-19 Vaccine ( season) 2022 08/24/2020 Zoster Vaccines (2 of 2) 06/15/2023 04/20/2023 Influenza Vaccine (FLU shot) (#1) 2023 12/18/2017, 10/24/2016, 01/11/2016, Additional history exists HbA1c 12/03/2023 06/02/2023, 11/10, 01/22/2018, Additional history exists GFR 04/02/2024 10/01/2023, 09/09, 09/12/2023, Additional history exists TSH 06/26/2024 06/27/2023, 04/0 07/2023, 06/02/2023, Additional history exists Phosphate 08/20/2024 08/21/2023, 06/10, 06/24/2023, Additional history exists Nephrology Referral 09/16/2024 09/17/2023 Hgb 09/27/2024 09/28/2023, 09/09, 09/12/2023, Additional history exists PTH 09/30/2024 10/01/2023 HPV (Gardasil) Vaccine Aged Out No lo [...] Indicated Resolved Time Respiratory Rule-Out 10/03/2023 10/03/2023 COVID-19 Rule-Out 10/03/2023 10/03/2023 documented as of this encounter Advance Directives Documents on File Type Date Recorded 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
--- OUTSIDE RECORDS SUMMARY | 2023-12-08 02:51 | External Medical Summary ---
Author Name Unknown Address Unknown Organization : Laboratory Report Ordering Provider Test Date Status ERNESTO RAMOS 10/05/2023 13:52:07 Final Observation Date Value Abnormality Reference (Units ) Status Streptococcus pneumoniae Ag [Presence] in Urine 10/05/2023 13:52:07 Not Detected Not Detected Final
Test Performed at:
[facility]
[address] [facility] [address]
[place] [address]
Paco Negrete M.D., Ph.D.,Director of Laboratories Performing Location
--- OUTSIDE RECORDS SUMMARY | 2023-12-08 02:51 | External Medical Summary ---
Author Name Unknown Address Unknown Organization : Laboratory Report Ordering Provider Test Date Status ERNESTO RAMOS 10/05/2023 21:26:55 Final Observation Date Value Abnormality Reference (Units ) Status Glucose Point of Care 10/05/2023 21:26:55 219 Above high normal 70-120 (mg/dL) Final Performing Location
--- OUTSIDE RECORDS SUMMARY | 2023-12-08 02:51 | External Medical Summary ---
Author Name Unknown Address Unknown Organization K01:[place] [facility] [place] [address] [place] [address] Laboratory Report Ordering Provider Test Date Status VITO MENDOZA 10/06/2023 04:23:00 Final Observation Date Value Abnormality Reference (Units ) Status Erythrocyte sedimentation rate by Photometric method 10/06/2023 04:23:00 51 Above high normal <30 (mm/hour) Final Performing Location LABORATORY [facility] - [address] [place] [address]
--- OUTSIDE RECORDS SUMMARY | 2023-12-08 02:51 | External Medical Summary ---
Author Name Unknown Address Unknown Organization K1F:LABORATORY [facility] - [address] [place] [address] Laboratory Report Ordering Provider Test Date Status ERNESTO RAMOS 10/05/2023 06:05:00 Final Observation Date Value Abnormality Reference (Units ) Status WBC, Total 10/05/2023 06:05:00 14.16 Above high normal 4.00-10.80 (K/uL) Final RBC 10/05/2023 06:05:00 2.71 3.85-5.15 (M/uL) Final Hemoglobin 10/05/2023 06:05:00 7.8 Below low normal 12.0-15.3 (g/dL) Final HCT 10/05/2023 06:05:00 23.5 Below low normal 36.0-45.2 (%) Final MCV 10/05/2023 06:05:00 86.7 81.5-97.5 (fL) Final MCH 10/05/2023 06:05:00 28.8 27.0-34.0 (pg) Final MCHC 10/05/2023 06:05:00 33.2 32.0-36.0 (g/dL) Final RDW 10/05/2023 06:05:00 15.0 11.5-15.5 (%) Final Platelets 10/05/2023 06:05:00 282 140-400 (K/uL) Final MPV 10/05/2023 06:05:00 10.8 6.6-11.1 (fL) Final Nucleated erythrocytes/100 leukocytes [Ratio] in Blood by Automated count 10/05/2023 06:05:00 0 <=0 (/100 WBCs) Final Performing Location LABORATORY [facility] - [address] [place] [address]
--- OUTSIDE RECORDS SUMMARY | 2023-12-08 02:51 | External Medical Summary ---
Author Name Unknown Address Unknown Organization K1F:LABORATORY [facility] - [address] [place] [address] Laboratory Report Ordering Provider Test Date Status VITO MENDOZA 10/06/2023 04:23:00 Final Observation Date Value Abnormality Reference (Units ) Status CRP, low-sensitivity 10/06/2023 04:23:00 139 Above high normal <=5 (mg/L) Final Performing Location LABORATORY [facility] - [address] [place] [address]
--- OUTSIDE RECORDS SUMMARY | 2023-12-08 02:51 | External Medical Summary ---
Author Name Unknown Address Unknown Organization K1F:LABORATORY [facility] - [address] [place] [address] Laboratory Report Ordering Provider Test Date Status EVY FERNANDEZ 10/04/2023 04:41:00 Final Observation Date Value Abnormality Reference (Units ) Status WBC, Total 10/04/2023 04:41:00 15.11 Above high normal 4.00-10.80 (K/uL) Final RBC 10/04/2023 04:41:00 2.66 3.85-5.15 (M/uL) Final Hemoglobin 10/04/2023 04:41:00 7.6 Below low normal 12.0-15.3 (g/dL) Final HCT 10/04/2023 04:41:00 23.1 Below low normal 36.0-45.2 (%) Final MCV 10/04/2023 04:41:00 86.8 81.5-97.5 (fL) Final MCH 10/04/2023 04:41:00 28.6 27.0-34.0 (pg) Final MCHC 10/04/2023 04:41:00 32.9 32.0-36.0 (g/dL) Final RDW 10/04/2023 04:41:00 15.0 11.5-15.5 (%) Final Platelets 10/04/2023 04:41:00 283 140-400 (K/uL) Final MPV 10/04/2023 04:41:00 10.8 6.6-11.1 (fL) Final Nucleated erythrocytes/100 leukocytes [Ratio] in Blood by Automated count 10/04/2023 04:41:00 0 <=0 (/100 WBCs) Final Performing Location LABORATORY [facility] - [address] [place] [address]
--- OUTSIDE RECORDS SUMMARY | 2023-12-08 02:51 | External Medical Summary ---
Author Name Unknown Address Unknown Organization : Laboratory Report Ordering Provider Test Date Status ERNESTO RAMOS 10/05/2023 08:07:37 Final Observation Date Value Abnormality Reference (Units ) Status Glucose Point of Care 10/05/2023 08:07:37 149 Above high normal 70-120 (mg/dL) Final Performing Location
--- OUTSIDE RECORDS SUMMARY | 2023-12-08 02:51 | External Medical Summary ---
Author Name Unknown Address Unknown Organization K1F:LABORATORY [facility] - [address] [place] [address] Laboratory Report Ordering Provider Test Date Status EVY FERNANDEZ 10/04/2023 04:41:00 Final Observation Date Value Abnormality Reference (Units ) Status BUN 10/04/2023 04:41:00 108 Above high normal 6-20 (mg/dL) Final Creatinine 10/04/2023 04:41:00 3.4 Above high normal 0.5-1.0 (mg/dL) Final Glomerular filtration rate/1.73 sq M.predicted [Volume Rate/Area] in Serum, Plasma or Blood by Creatinine-based formula (CKD-EPI) 10/04/2023 04:41:00 15 Below low normal >=60 (mL/min) Final eGFR is calculated based on the CKD-EPI 2020 equation. Sodium 10/04/2023 04:41:00 131 Below low normal 135 -146 (mmol/L) Final Potassium 10/04/2023 04:41:00 3.6 3.5-5.1 (m mol/L) Final Cl 10/04/2023 04:41:00 92 Below low normal 98- 107 (mmol/L) Final CO2 10/04/2023 04:41:00 24 22-32 (mmo l/L) Final Anion gap 10/04/2023 04:41:00 15 7-15 (mmol /L) Final Glucose 10/04/2023 04:41:00 179 Above high normal 70 -120 (mg/dL) Final Calcium 10/04/2023 04:41:00 8.3 Below low normal 8.4 -10.2 (mg/dL) Final Performing Location LABORATORY [facility] - [address] [place] [address]
--- OUTSIDE RECORDS SUMMARY | 2023-12-08 02:51 | External Medical Summary ---
Author Name Unknown Address Unknown Organization : Laboratory Report Ordering Provider Test Date Status ERNESTO RAMOS 10/04/2023 12:18:47 Final Observation Date Value Abnormality Reference (Units ) Status Glucose Point of Care 10/04/2023 12:18:47 122 Above high normal 70-120 (mg/dL) Final Performing Location
--- OUTSIDE RECORDS SUMMARY | 2023-12-08 02:51 | External Medical Summary ---
Author Name Unknown Address Unknown Organization K1F:LABORATORY [facility] - [address] [place] [address] Laboratory Report Ordering Provider Test Date Status CHANDAN FAJARDO 10/03/2023 17:44:00 Final Observation Date Value Abnormality Reference (Units ) Status Troponin T 10/03/2023 17:44:00 184 Above upper panic limits <=14 (ng/L) Final Performing Location LABORATORY [facility] - [address] [place] [address]
--- OUTSIDE RECORDS SUMMARY | 2023-12-08 02:51 | External Medical Summary ---
Author Name Unknown Address Unknown Organization K1F:LABORATORY [facility] - [address] [place], [place] [address] [place] [address] Laboratory Report Ordering Provider Test Date Status EVY FERNANDEZ 10/03/2023 20:29:00 Final Observation Date Value Abnormality Reference (Units ) Status Bacteria identified in Specimen by Culture 10/03/2023 20:29:00 No growth Final Test: Culture, Blood (Site 2)
Specimen Source: Blood, Venous
Specimen Type: Blood
Specimen Date: 10/03/20232028
Result Date: 10/08/20232101
Result Status: Final result
Resulting Lab: LABORATORY [facility]
[address] [place] [address]
[address] [place] [address]

CULTURE

No growth

null Performing Location LABORATORY [facility] - [address] [place] [address] [address] [place] [address]
--- OUTSIDE RECORDS SUMMARY | 2023-12-08 02:51 | External Medical Summary ---
Author Name Unknown Address Unknown Organization : Laboratory Report Ordering Provider Test Date Status CASTILLO SANCHEZ 10/03/2023 21:27:11 Final Observation Date Value Abnormality Reference (Units ) Status Glucose Point of Care 10/03/2023 21:27:11 225 Above high normal 70-120 (mg/dL) Final Performing Location
--- OUTSIDE RECORDS SUMMARY | 2023-12-08 02:51 | External Medical Summary ---
Author Name Unknown Address Unknown Organization K1F:LABORATORY [facility] - [address] [place] [address] Laboratory Report Ordering Provider Test Date Status ERNESTO RAMOS 10/06/2023 04:23:00 Final Observation Date Value Abnormality Reference (Units ) Status BUN 10/06/2023 04:23:00 105 Above high normal 6-20 (mg/dL) Final Creatinine 10/06/2023 04:23:00 3.1 Above high normal 0.5-1.0 (mg/dL) Final Glomerular filtration rate/1.73 sq M.predicted [Volume Rate/Area] in Serum, Plasma or Blood by Creatinine-based formula (CKD-EPI) 10/06/2023 04:23:00 16 Below low normal >=60 (mL/min) Final eGFR is calculated based on the CKD-EPI 2020 equation. Sodium 10/06/2023 04:23:00 131 Below low normal 135 -146 (mmol/L) Final Potassium 10/06/2023 04:23:00 3.4 Below low normal 3.5 -5.1 (mmol/L) Final Cl 10/06/2023 04:23:00 92 Below low normal 98- 107 (mmol/L) Final CO2 10/06/2023 04:23:00 25 22-32 (mmo l/L) Final Anion gap 10/06/2023 04:23:00 14 7-15 (mmol /L) Final Glucose 10/06/2023 04:23:00 162 Above high normal 70 -120 (mg/dL) Final Calcium 10/06/2023 04:23:00 8.4 8.4-10.2 ( mg/dL) Final Performing Location LABORATORY [facility] - [address] [place] [address]
--- OUTSIDE RECORDS SUMMARY | 2023-12-08 02:51 | External Medical Summary ---
Author Name Unknown Address Unknown Organization K1F:LABORATORY [facility] - [address] [place] [address] Laboratory Report Ordering Provider Test Date Status ERNESTO RAMOS 10/05/2023 06:05:00 Final Observation Date Value Abnormality Reference (Units ) Status BUN 10/05/2023 06:05:00 109 Above high normal 6-20 (mg/dL) Final Creatinine 10/05/2023 06:05:00 3.4 Above high normal 0.5-1.0 (mg/dL) Final Glomerular filtration rate/1.73 sq M.predicted [Volume Rate/Area] in Serum, Plasma or Blood by Creatinine-based formula (CKD-EPI) 10/05/2023 06:05:00 15 Below low normal >=60 (mL/min) Final eGFR is calculated based on the CKD-EPI 2020 equation. Sodium 10/05/2023 06:05:00 134 Below low normal 135 -146 (mmol/L) Final Potassium 10/05/2023 06:05:00 3.6 3.5-5.1 (m mol/L) Final Cl 10/05/2023 06:05:00 94 Below low normal 98- 107 (mmol/L) Final CO2 10/05/2023 06:05:00 24 22-32 (mmo l/L) Final Anion gap 10/05/2023 06:05:00 16 Above high normal 7- 15 (mmol/L) Final Glucose 10/05/2023 06:05:00 169 Above high normal 70 -120 (mg/dL) Final Calcium 10/05/2023 06:05:00 8.6 8.4-10.2 ( mg/dL) Final Performing Location LABORATORY [facility] - [address] [place] [address]
--- OUTSIDE RECORDS SUMMARY | 2023-12-08 02:51 | External Medical Summary ---
Author Name Unknown Address Unknown Organization K1F:LABORATORY [facility] - [address] [place] [address] Laboratory Report Ordering Provider Test Date Status ERNESTO RAMOS 10/06/2023 04:23:00 Final Observation Date Value Abnormality Reference (Units ) Status WBC, Total 10/06/2023 04:23:00 13.13 Above high normal 4.00-10.80 (K/uL) Final RBC 10/06/2023 04:23:00 2.60 3.85-5.15 (M/uL) Final Hemoglobin 10/06/2023 04:23:00 7.2 Below low normal 12.0-15.3 (g/dL) Final HCT 10/06/2023 04:23:00 22.6 Below low normal 36.0-45.2 (%) Final MCV 10/06/2023 04:23:00 86.9 81.5-97.5 (fL) Final MCH 10/06/2023 04:23:00 27.7 27.0-34.0 (pg) Final MCHC 10/06/2023 04:23:00 31.9 32.0-36.0 (g/dL) Final RDW 10/06/2023 04:23:00 14.9 11.5-15.5 (%) Final Platelets 10/06/2023 04:23:00 276 140-400 (K/uL) Final MPV 10/06/2023 04:23:00 11.6 6.6-11.1 (fL) Final Nucleated erythrocytes/100 leukocytes [Ratio] in Blood by Automated count 10/06/2023 04:23:00 0 <=0 (/100 WBCs) Final Performing Location LABORATORY [facility] - [address] [place] [address]
--- OUTSIDE RECORDS SUMMARY | 2023-12-08 02:52 | External Medical Summary | Summary of Care ---
Author Name Unknown Organization [facility] Address [address] [place] [address] Phone [phone] Care Team Providers Care Making Line Worker Name Role Phone Paco Cordero MD Primary Care Provider + [phone] Reason for Visit * Reason Comments NEW PATIENT * Evaluate & Treat - Unlimited Visits (Within 10 days (routine)) - Authorized Specialty Diagnoses / Procedures Referred By Contkatharine t Referred To Contact Nephrology Diagnoses Kidney function abnormal Paco Cordero MD [address] [facility] [address] [place] [address] Referral ID Status Reason Start Date Expiration Date Visits Requested Visits Authorized [id number] Authorized Specialty Services Required 09/10/[phone] Encounter Details Date Type Department Care Team (Late st Contact Info) Description 09/17/2023 2:00 PM EDT Office Visit Nephrology, [address] [address] Isaías Crespo MD [address] [place] [id number] CKD (chronic kidney disease) stage 4, GFR 15-29 ml/min ([facility])*; HTN, goal below 130/80; Diabetic nephropathy associated with diabetes mellitus due to underlying condition ([facility]) Allergies Active Allergy Reactions Criticality Noted Date Comments Amoxicillin 06/26/2014 Clarithromycin Other (Please comment) High 01/16/2023 Heart racing Dextromethorphan Hives High 01/16/2023 Doxylamine Hives High 01/16/2023 Food (See Comments) Hives 06/20/2023 Umesh's brand 7 Grain Bread Latex 06/18/2014 Yocmaskbu-Zsdnlgozrn-Ox-Ap ap Edema face/lips/tongue,It katie High 11/11/2010 Sulfa Antibiotics Other (Please comment),Rash 08/03/2000 malaise documented as of this encounter (statuses as of 09/17/2023) Medications Medication Sig Dispensed Refills Start Date [...] the morning. 60 Tablet 3 4 Active Additional Information Patient not taking.Reported on [...] 50 MCG/ACT Nasal Suspension (Flonase) Administer 1 [place] into nostril in the morning. Active Folic Acid 1 MG Oral Tablet Take 1 Tablet by mouth in the morning. Active Loratadine 5 MG OR TABS Take 1 Tablet by mouth in the morning. Active meropenem 1 G in 50 ml 1 G/50ml IV Administer 50 mL intravenously in the morning and 50 mL at noon and 50 mL before bedtime. 4 Active metOLazone 2.5 MG Oral Tablet (Zaroxolyn) [...] before bedtime. 60 Tablet 5 4 Active Bumetanide 2 MG Oral Tablet Take 1 Tablet by mouth in the morning. 024 Discontinued documented as of this encounter (statuses as of 09/17/2023) Active Problems Problem Noted Date Diagnosed Date Rhinovirus infection 08/21/2023 Elevated troponin 08/16/2023 Demand [...] as of this encounter (statuses as of 09/17/2023) Resolved Problems Problem Noted Date Diagnosed Date Resolved Date Cellulitis of index finger 06/19/2023 0 06/25/2023 Pneumonia of right lower lob e due to infectious organism 06/17/2023 06/18/2023 BPPV (benign paroxysmal positional vertigo) 06/17/2023 06/18/2023 Hypokalemia 06/17/2023 06/19/2023 Hypomagnesemia 06/17/2023 06/25/2023 documented as of this encounter (statuses as of 09/17/2023) Immunizations Name Administration Dates Next Due PPD [...] Sign Reading Time Taken Comments Blood Pressure 149/77 09/17/2023 2:03 PM EDT Pulse 77 09/17/2023 2:03 PM EDT Temperature - - Respiratory Rate - - Oxygen Saturation - - Inhaled Oxygen Concentration - - Weight 133.8 kg (294 lb 14.4 oz) 09/17/2023 2:03 PM EDT Height - - Body Mass Index 53.94 08/15/2023 6:25 AM EDT documented in this [...] as of this encounter Progress Notes * Isaías Crespo MD - 09/17/2023 2:01 PM EDT Subjective: Alexandria Smith is a 63 year old female. Chief Complaint Patient presents with NEW PATIENT HPI: Seen as hospital discharge. [facility] 08/14-24--08/21/23 - A/w chest pain 2/ demand ischemia ( reviewed by cardiology)and ongoing R foot ulcer.She was tx with antibiotics and IV diuretics, During the hospital stay she tested positivefor Rhino virus. She was discharged to rehab w/ Bumetanide 2 mg daily with 2.5 mg Metolazone. Renela functions remained at baseline for early to mid 2.0's during her hospital stay.She weighed 292 pounds on discharge. PMH-Morbid obesity, stage 3-4 ckd, HTN, dm2, fibromyalgia, hypothyroid, anemia of chronic disease, and chf with preserved EF. R foot ulcer. Was previously been followed by Dr Caballero( [facility])--@ 8-9 months before.Does not remember her baseline renal fucntions. Renal history NSAIDS- no Renal stones- no Family renal disease- no Denies any dysuric symptoms PMH: Patient Active Problem List Diagnosis Type 2 diabetes mellitus, with long-term current use of insulin ([facility]) Hypertension Hypothyroid Acute on chronic heart failure with preserved ejection fraction (HFpEF) ([facility]) Mitral valve insufficiency Mild tricuspid regurgitation Moderate pulmonary hypertension ([facility]) AV junctional rhythm Chronic kidney disease, stage IV (severe) ([facility]) Morbid obesity ([facility]) Mild mitral stenosis Moderate tricuspid regurgitation Atypical chest pain (HFpEF) heart failure with preserved ejection fraction ([facility]) Anxiety Diabetic ulcer of right heel ([facility]) Ambulatory dysfunction Fibromyalgia Gastroesophageal reflux disease Anasarca Osteomyelitis of right foot ([facility]) Iron deficiency anemia Elevated troponin Demand ischemia ([facility]) Hyperkalemia Hyponatremia Hypoalbuminemia Bifascicular bundle branch block Rhinovirus infection Current Outpatient Medications Medication Sig Dispense Refill [...] 50 MCG/ACT Nasal Suspension (Flonase) Administer 1 [place]in[place] into nostril in themorning. Folic Acid 1 [...] No current facility-administered medications for this visit. Past Medical History: Diagnosis Date Acute kidney [...] performed by Lynnette Rasmussen DPM at OR [facility] INFORMATION wisdom teeth removed INJECTION CERVICAL/THORACIC 06/26/2014 INJECTION SPINE LUMBAR CERVICAL OR THORACIC performed by Héctor Marvin Cousins, DO at OR [facility] INJECTION CERVICAL/THORACIC 07/10/2014 INJECTION SPINE LUMBAR CERVICAL OR THORACIC performed by Héctor Marvin Cousins, DO at OR [facility] KNEE ARTHROSCOPY/REPAIR LIGAMENT 1998 Knee Scope,Aid Ant Cruciate Repair x 2 Review of patient's allergies indicates: Allergen Reactions Clarithromycin Other (Please comment) Heart racing Dextromethorphan Hives Doxylamine Hives Ijzpkitfr-Lozlcpfvml-Ln-Apap Edema face/lips/tongue and Itching Amoxicillin Food (See Comments) Hives Arnold's brand 7 Grain Bread Latex Sulfa Antibiotics Other (Please comment) and Rash malaise Family History Problem Relation Name Age of Onset Diabetes Mother Diabetes Grandfather (Maternal) Diabetes Uncle (Unspecified) maternal Heart Disorder Father aneyurism Heart Disorder Grandmother (Paternal) aneyurism Family Status Relation Status Mo (Not Specified) MGFA (Not Specified) UNCLE (Not Specified) Fa (Not Specified) PGMA (Not Specified) UNCLE (Not Specified) Social History Socioeconomic History Marital status: Spouse [...] on file Food Insecurity: No Food Insecurity (06/17/2023) Food Insecurity Do you need food for [...] on file Transportation Needs: No Transportation Needs (06/17/2023) Transportation Needs Do you have trouble getting [...] and over): Not on file Do you (or your family) have trouble finding or paying for a ride (transportation)? (Household - for ages 0-17 years): Not on file Social Connections: Unknown (08/28/2023) Social Connections How often do you feel lonely or isolated from those around you? (Adult - for ages 18 years and over): Not on file Housing Stability: Low Risk (06/17/2023) Housing Stability Do you currently live in a senior care or have no steady place to sleep [...] 18 years and over): Not on file Are you (or your family) homeless or worried that you might be in the future? (Household - for ages0-17 years): Not on file Latest Reference Range & Units 08/29/23 04:37 09/01/23 07:00 09/05/23 04:45 09/10/23 04:34 09/12/23 04:25 Sodium 135 - 146 mmol/L 133 (L) 131 (L) 136 141 137 Potassium 3.5 - 5.1 mmol/L 6.4 (H) 5.5 (H) 5.7 (H) 4.6 4.7 Chloride 98 - 107 mmol/L 98 98 101 106 104 CO2 22 - 32 mmol/L 18 (L) 18 (L) 19 (L) 23 21 (L) BUN 6 - 20 mg/dL 94 (H) 112 (H) 104 (H) 92 (H) 86 (H) Creatinine 0.5 - 1.0 mg/dL 2.7 (H) 2.7 (H) 2.5 (H) 2.2 (H) 2.1 (H) Estimated Glomerular Filtration Rate >=60 mL/min 19 (L) 19 (L) 21 (L) 25 (L) 26 (L) [facility] Reference Range & Units 01/14/01 13:16 05/06/01 13:52 02/27/17 08:30 01/22/18 09:45 11/19/18 09:00 06/02/23 18:43 04/23/97 22:13 09/16/97 12:05 02/03/98 17:00 11/03/98 15:01 07/09/00 14:57 Hemoglobin A1C 3.4 - 6.0 % 8.4 (H) (C) 8.6 (H) 10.0 (H) 11.6 (H) 15.0 (H) 6.9 (H) 9.3 (H) 8.3 (H) 8.4 (H) 8.3 (H) 7.4 (H) Constitutional- Well , no complains Eyes: (-) negative, no pain, blurred vision, or redness ENT: (-) negative: no headaches, vertigo, hearing loss, sinus, ear, or throat problems Cardiovascular: (-) negative: no chest pain, dyspnea, syncope, or palpitations Pulmonary : (-) negative: no cough, wheezing, or shortness of breath Abdominal/GI: (-) negative: no pain, heartburn, dysphagia, bleeding, change in bowel habits, nauseaor vomiting Extremities- 2-3+ edema Skin - warm , no rashes Psy - Normal mood and affect. Objective: [facility] 11/22/2002 GEN: Comfortable HEENT: NC/AT, OP clear NECK: supple CV: RRR no M/R/G PULM: CTAB ABD: soft, non-tender, obese abdomen EXT 2-3+ edema, R foot in bandage NEURO: Awake and alert Skin: no rashes or significant lesions BP Readings from Last 5 Encounters: 09/10/23 139/70 08/31/23 146/65 08/21/23 126/59 06/25/23 162/70 06/13/23 143/66 Wt Readings from Last 5 Encounters: 08/31/23 134.4 kg (296 lb 4.8 oz) 08/21/23 132.5 kg (292 lb) 06/25/23 134 kg (295 lb 6.4 oz) 06/13/23 (!) 148.6 kg (327 lb 8 oz) 11/11/10 (!) 143.8 kg (317 lb) Weight - 294.9 (09/17/23) ASSESSMENT: 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 Her baseline creatinine is in early to mid 2s which has been stable for the last 2-3 years. Moderate risk of progression to ESRD. - she has got good going bilateral pedal edema await has also started to climb up since her discharge. Increase bumetanide 2 mg twice daily. Repeat BMP. In 2 weeks. Preventative strategies to delay progression of CKD - ACEI, BP control, glycemic control and NO NSAIDS discussed and patient expressed understanding -get her old records fron Dr Caballero of [facility] nephrology group. Blood pressure is the high normal side - continue on lisinopril ,increasing bumetanide would help with volume and pressure control PTH/vd / ACR before next visit. Patient lives in [facility] and [facility]. Happy to see her again until this is put in place. RTC in 3 months time. Isaías Crespo MD This chart was completed in part utilizing [employer] Speech Voice Recognition Software. Randomword insertions, pronoun errors, and incomplete sentences are an occasional consequence of this system due to software limitations, and ambient noise. Any questions or concerns about the content, text, or information contained within the body of this dictation should be directly addressed to the provider for clarification. documented in this encounter Nursing Notes * Marti Hudson LPN - 09/17/2023 2:02 PM EDT Chief Complaint Patient presents with NEW PATIENT documented in this encounter Plan of Treatment Upcoming Encounters Date Type Department Care Team (Late st Contact Info) Description 12/25/2023 10:00 AM EDT Office Visit Nephrology, Katerin Wolf [address] [facility] [place], [place] [address] BarneyJoslyn caal [facility] [address] Scheduled Orders Name Type Priority Associated Diagnoses Orde r Schedule COMPREHENSIVE METABOLIC PANEL Lab Routine CKD (chronic kidney disease) stage 4, GFR 15-29 ml/min (HCC) Expected: 10/01/2023, Expires: 09/16/2024 ALBUMIN / CREATININE RATIO, URINE Lab Routine CKD (chronic kidney disease) stage 4, GFR 15-29 ml/min (HCC) HTN, goal below 130/80 Diabetic nephropathy associated with diabetes mellitus due to underlying condition (HCC) Expected: 12/18/2023, Expires: 09/16/2024 25-HYDROXY VITAMIN D Lab Routine CKD (chronic kidney disease) stage 4, GFR 15-29 ml/min (HCC) HTN, goal below 130/80 Diabetic nephropathy associated with diabetes mellitus due to underlying condition (HCC) Expected: 12/18/2023, Expires: 09/16/2024 PTH Lab Routine CKD (chronic kidney disease) stage 4, GFR 15-29 ml/min (HCC) HTN, goal below 130/80 Diabetic nephropathy associated with diabetes mellitus due to underlying condition (HCC) Expected: 12/18/2023, Expires: 09/16/2024 Health Maintenance Due Date Last Done Comments Depression Screening 1972 HIV Screening 1975 Diabetic Foot Exam 1978 PTH 1978 HPV/Co-Test 1990 Mammogram 2000 Diabetic Eye [...] 06/02/2023, 11/10, 01/22/2018, Additional history exists GFR 03/14/2024 09/12/2023, 07/0 03/2023, 09/05/2023, Additional history exists TSH 06/26/2024 06/27/2023, 04/0 07/2023, 06/02/2023, Additional history exists Phosphate 08/20/2024 08/21/2023, 04/1 07/2023, 06/24/2023, Additional history exists Hgb 09/11/2024 09/12/2023, 07/0 03/2023, 09/05/2023, Additional history exists Nephrology Referral 09/16/2024 09/17/2023 HPV (Gardasil) Vaccine Aged Out No lo [...] as of this encounter Visit Diagnoses Diagnosis CKD (chronic kidney disease) stage 4, GFR 15-29 ml/min (HCC)- Primary Chronic kidney disease, Stage IV (severe) HTN, goal below 130/80 Unspecified essential hypertension Diabetic nephropathy associated with diabetes mellitus due to underlying condition (HCC) documented in this encounter Advance Directives Documents on File Type Date Recorded Patient Corporate Accounting Manager Expl anation POLST 08/16/2023 signed on 08/12 [place] ORDERS FOR LIFE-SUSTAINING TREATMENT POLST 06/17/2023 [place] OR DERS FOR LIFE-SUSTAINING TREATMENT; sign on [...] Advance Directives occurred with: Patient Care Teams Making Line Worker Relationship Specialty Start Date End Date Paco Cordero MD [address] [place] [address] PCP - General Family Medicine 09/10/23 documented as of this encounter
--- OUTSIDE RECORDS SUMMARY | 2023-12-08 02:52 | External Medical Summary ---
Author Name Unknown Address Unknown Organization [id number]:LABORATORY [facility] [place] [place] - [address] [place] [address] Laboratory Report Ordering Provider Test Date Status BRONWYN BERNARD 10/01/2023 05:47:00 Final Deficient: <20 ng/mL
Ins ufficient: 20-29 ng/mL
Recommended/Optimum:30-50 ng/mL

Vitamin D intoxication is rare. If suspicious of Vitamin D toxicity, evaluation of serum Calcium and PTH is recommended. Observation Date Value Abnormality Reference (Units ) Status 25-OH Vitamin D total 10/01/2023 05:47:00 25 >19 (ng/mL) Final Performing Location LABORATORY [facility] - [address] [place] [address]
--- OUTSIDE RECORDS SUMMARY | 2023-12-08 02:52 | External Medical Summary | Summary of Care ---
Author Name Unknown Organization [facility] Address [address] [place] [address] Phone [phone] Care Team Providers Care Driver Name Role Phone Paco Cordero MD Primary Care Provider + [phone] Reason for Visit * Reason Onset Date Comments Other 10/01/2023 Encounter Details Date Type Department Care Team (Late st Contact Info) Description 10/01/2023 Telephone Nephrology, [facility] [address] [facility] [place] [address] Services, Scheduling [address] [place] [address] Other Allergies Active Allergy Reactions Criticality Noted Date Comments Amoxicillin 06/26/2014 Clarithromycin Other (Please comment) High 01/16/2023 Heart racing Dextromethorphan Hives High 01/16/2023 Doxylamine Hives High 01/16/2023 Food (See Comments) Hives 06/20/2023 ArnTagArray's brand 7 Grain Bread Latex 06/18/2014 Nrfzvdswd-Tmiafcmvgf-Jo-Ap ap Edema face/lips/tongue,It katie High 11/11/2010 Sulfa Antibiotics Other (Please comment),Rash 08/03/2000 malaise documented as of this encounter (statuses as of 10/01/2023) Medications Medication Sig Dispensed Refills Start Date [...] 50 MCG/ACT Nasal Suspension (Flonase) Administer 1 [place] into nostril in the morning. Active Folic [...] as of this encounter (statuses as of 10/01/2023) Active Problems Problem Noted Date Diagnosed Date [...] as of this encounter (statuses as of 10/01/2023) Resolved Problems Problem Noted Date Diagnosed Date Resolved Date Cellulitis of index finger 06/19/2023 0 06/25/2023 Pneumonia of right lower lob e due to infectious organism 06/17/2023 06/18/2023 BPPV (benign paroxysmal positional vertigo) 06/17/2023 06/18/2023 Hypokalemia 06/17/2023 06/19/2023 Hypomagnesemia 06/17/2023 06/25/2023 documented as of this encounter (statuses as of 10/01/2023) Immunizations Name Administration Dates Next Due PPD [...] encounter Miscellaneous Notes * Telephone Encounter - Sasha Metzger LPN - 10/01/2023 2:42 PM EDT LMM to fax labs if not done through [facility] * Telephone Encounter - Natali Mcdonnell OSA - 10/01/2023 2:24 PM EDT Good afternoon, Daniela from [facility] on the line, requesting a call back after the doctor reviews the pt's labs. Please give her a call back at [phone] ext [phone] Thank you documented in this encounter Plan of Treatment Upcoming Encounters Date Type Department Care Team (Late st Contact Info) Description 12/25/2023 10:00 AM EDT Office Visit Nephrology, Katerin Wolf [address] [place] [address] Joslyn Barney MD 200 [facility] [place] [address] Health Maintenance Due Date Last Done Comments [...] Additional history exists COVID-19 Vaccine (2 - 2022-24 season) 2022 08/24/2020 Zoster Vaccines (2 of [...] 09/27/2024 09/28/2023, 09/09, 09/12/2023, Additional history exists HPV (Gardasil) Vaccine Aged [...] filedocumented as of this encounter Advance Directives Documents on File Type Date Recorded Patient Clinical Dermatologist Expl anation POLST 08/16/2023 signed on 08/12 [place] ORDERS FOR LIFE-SUSTAINING TREATMENT POLST 06/17/2023 [place] OR DERS FOR LIFE-SUSTAINING TREATMENT; sign on [...] Advance Directives occurred with: Patient Care Teams Driver Relationship Specialty Start Date End Date Paco Cordero MD [address] [place] [address] PCP - General Family Medicine 09/10/23 documented as of this encounter
--- OUTSIDE RECORDS SUMMARY | 2023-12-08 02:52 | External Medical Summary | Summary of Care ---
Author Name Unknown Organization [facility] Address [address] [place] [address] Phone [phone] Care Team Providers Care Co Founder & Ceo Name Role Phone Paco Cordero MD Primary Care Provider + [phone] Reason for Visit * Reason Comments Outpatient Testing Encounter Details Date Type Department Care Team (Late st Contact Info) Description 09/28/2023 12:00 PM EDT Laboratory Laboratory, [facility] [address] [place] [address] [facility], Lab [address] [place] [address] Anemia Allergies Active Allergy Reactions Criticality Noted Date Comments Amoxicillin 06/26/2014 Clarithromycin Other (Please comment) High 01/16/2023 Heart racing Dextromethorphan Hives High 01/16/2023 Doxylamine Hives High 01/16/2023 Food (See Comments) Hives 06/20/2023 ArnNogacom's brand 7 Grain Bread Latex 06/18/2014 Objqgdygm-Kzbwvprjci-Uf-Ap ap Edema face/lips/tongue,It katie High 11/11/2010 Sulfa Antibiotics Other (Please comment),Rash 08/03/2000 malaise documented as of this encounter (statuses as of 09/28/2023) Medications Medication Sig Dispensed Refills Start Date [...] 50 MCG/ACT Nasal Suspension (Flonase) Administer 1 [place] into nostril in the morning. Active Folic [...] as of this encounter (statuses as of 09/28/2023) Active Problems Problem Noted Date Diagnosed Date [...] as of this encounter (statuses as of 09/28/2023) Resolved Problems Problem Noted Date Diagnosed Date Resolved Date Cellulitis of index finger 06/19/2023 0 06/25/2023 Pneumonia of right lower lob e due to infectious organism 06/17/2023 06/18/2023 BPPV (benign paroxysmal positional vertigo) 06/17/2023 06/18/2023 Hypokalemia 06/17/2023 06/19/2023 Hypomagnesemia 06/17/2023 06/25/2023 documented as of this encounter (statuses as of 09/28/2023) Immunizations Name Administration Dates Next Due PPD [...] No 08/15/2023 documented as of this encounter Plan of Treatment Upcoming Encounters Date Type Department Care Team (Late st Contact Info) Description 09/28/2023 1:00 PM EDT Hem/Onc Treatment Hematology/Oncology Treatment, [facility] [address] [place] [address] [facility], Chair2 Hem Onc [address] [place] [id number] Arrived 12/25/2023 10:00 AM EDT Office Visit Nephrology, Katerni Wolf [address] [facility] [place] [address] Joslyn Barney MD [address] [facility] [place] [address] Pending Results Name Type Priority Associated Diagnoses Date /Time TYPE AND SCREEN Lab STAT Anemia 09/28/2023 11:48 AM EDT Health Maintenance Due Date Last [...] 06/02/2023, 11/10, 01/22/2018, Additional history exists GFR 03/30/2024 09/28/2023, 07/0 05/2023, 09/10/2023, Additional history exists TSH 06/26/2024 06/27/2023, 04/0 [...] as of this encounter Visit Diagnoses Diagnosis Anemia Anemia, unspecified documented in this encounter Advance Directives Documents on File Type Date Recorded Patient Production Inspector Expl anation POLST 08/16/2023 signed on 08/12 [...] Advance Directives occurred with: Patient Care Teams Co Founder & Ceo Relationship Specialty Start Date End Date Paco Cordero MD [address] [place] [address] PCP - General Family Medicine 09/10/23 documented as of this encounter
--- OUTSIDE RECORDS SUMMARY | 2023-12-08 02:52 | External Medical Summary ---
Author Name Unknown Address Unknown Organization [id number]:[place] [place] [address] [place] [address] Laboratory Report Ordering Provider Test Date Status BRONWYN BERNARD 10/01/2023 05:47:00 Final Observation Date Value Abnormality Reference (Units ) Status Parathyrin.intact [Mass/volume] in Serum or Plasma 10/01/2023 05:47:00 266 Above high normal 15-65 (pg/mL) Final Performing Location LABORATORY C - [address] [place] [address]
--- OUTSIDE RECORDS SUMMARY | 2023-12-08 02:52 | External Medical Summary ---
Author Name Unknown Address Unknown Organization [id number]:LABORATORY [facility] LOOD B[facility] - [address] [place] [address] [address] [place] [place] [address] Laboratory Report Ordering Provider Test Date Status BRONWYN BERNARD 09/28/2023 11:48:49 Final Observation Date Value Abnormality Reference (Units ) Status ABO 09/28/2023 11:48:49 A Final RH 09/28/2023 11:48:49 Positive Final RED BLOOD CELL ANTIBODY SCREEN 09/28/2023 11:48:49 Negative Final SPECIMEN EXPIRATION DATE 09/28/2023 11:48:49 10/01/2023 23:59 Final Performing Location LABORATORY [facility] BLOOD [facility] - [address] [place] [address]
--- OUTSIDE RECORDS SUMMARY | 2023-12-08 02:52 | External Medical Summary | Summary of Care ---
Author Hub Preferred Language Korean Marital Status Unknown Zoroastrianism Affiliation Unknown Race White Ethnic Group Not or Lati no Author Name Unknown Organization [facility] Address [address] [place] [address] Phone [phone] Care Team Providers Care Fowl Blood Tester Name Role Phone Paco Cordero MD Primary Care Provider + [phone] Reason for Visit * Reason Onset Date Comments Other 10/01/2023 Encounter Details Date Type Department Care Team (Late st Contact Info) Description 10/01/2023 Telephone Nephrology, [facility] [address] [place] [address] Services, Scheduling [address] [place] [address] Other Allergies Active Allergy Reactions Criticality Noted Date Comments Amoxicillin 06/26/2014 Clarithromycin Other (Please comment) High 01/16/2023 Heart racing Dextromethorphan Hives High 01/16/2023 Doxylamine Hives High 01/16/2023 Food (See Comments) Hives 06/20/2023 ArnYogiPlay's brand 7 Grain Bread Latex 06/18/2014 Zyszrlkfc-Ftycgpzstz-Hd-Ap ap Edema face/lips/tongue,It katie High 11/11/2010 Sulfa [...] 50 MCG/ACT Nasal Suspension (Flonase) Administer 1 [place] into nostril in the morning. Active Folic [...] encounter Miscellaneous Notes * Telephone Encounter - Natali Mcdonnell, LULÚ - 10/01/2023 2:24 PM EDT Daniela Awad from [facility] on the line, requesting a call back after the doctor reviews the pt's labs. Please give her a call back at [phone] ext [phone] Thank you documented in this encounter Plan of Treatment Upcoming Encounters Date Type Department Care Team (Late st Contact Info) Description 12/25/2023 10:00 AM EDT Office Visit Nephrology, Katerin Wolf [address] [place] [address] Joslyn Barney MD [address] [facility] [place] [address] Health Maintenance Due Date Last Done Comments [...] Documents on File Type Date Recorded Patient Boatswain Mate Expl anation POLST 08/16/2023 signed on 08/12 [place] ORDERS FOR LIFE-SUSTAINING TREATMENT POLST 06/17/2023 [place] OR DERS FOR LIFE-SUSTAINING TREATMENT; sign on [...] Advance Directives occurred with: Patient Care Teams Fowl Blood Tester Relationship Specialty Start Date End Date Paco Cordero MD [address] [place] [address] PCP - General Family Medicine 09/10/23 documented as of this encounter
--- OUTSIDE RECORDS SUMMARY | 2023-12-08 02:52 | External Medical Summary ---
Author Name Unknown Address Unknown Organization K1F:LABORATORY [facility] - [address] [place] [address] Laboratory Report Ordering Provider Test Date Status BRONWYN BERNARD 09/12/2023 04:25:00 Final Observation Date Value Abnormality Reference (Units ) Status CRP, low-sensitivity 09/12/2023 04:25:00 10 Above high normal <=5 (mg/L) Final Performing Location LABORATORY [facility] - [address] [place] [address]
--- OUTSIDE RECORDS SUMMARY | 2023-12-08 02:52 | External Medical Summary ---
Author Name Unknown Address Unknown Organization K01:[facility] [facility] [address] [facility] [address] Laboratory Report Ordering Provider Test Date Status BRONWYN BERNARD 10/02/2023 11:25:00 Final Multiple other species of ae robic bacteria.
No anaerobic growth.
No further workup routinely performed Observation Date Value Abnormality Reference (Units ) Status Bacteria identified in Specimen by Culture 10/02/2023 11:25:00 [id number]^PSEUDOMON AERUGINOSA Abnormal Final Many Pseudomonas aeruginosa Gram Stain 10/02/2023 11:25:00 No squamous epithelial cells seen Final Gram Stain 10/02/2023 11:25:00 No polymorphonuclear leukocyt es seen Final Gram Stain 10/02/2023 11:25:00 Moderate Gram positive cocci Final Performing Location LABORATORY [facility] [address] [place] [address] Ordering Provider Test Date Status BRONWYN BERNARD 10/02/2023 11:25:00 Final Observation Date Value Abnormality Reference (Units) Status Cefepime susceptibility 10/02/2023 11:25:00 4 Susceptible Final Ciprofloxacin 10/02/2023 11:25:00 <=0.25 Susceptible Final Levofloxacin susceptibility 10/02/2023 11:25:00 0.25 Susceptible Final Piperacillin + Tazobactamsusceptibility 10/02/2023 11:25:00 8 Susceptible Final Tobramycinsusceptibility 10/02/2023 11:25:00 <=1 Susceptible Final Test: Culture, Wound, Deep, Aerobic and Anaerobic
Specimen Source: Heel, Right
Specimen Type: Deep Wound
Specimen Date: 10/02/2023 1125
Result Date: 10/07/2023 1350
Result Status: Final result
Abnormal: Yes
Resulting Lab: LAB[facility]ATORY [facility]
[address]
[place] [address]

CULTURE

Many Pseudomonas aeruginosa (Abnormal)

Multiple other species of aerobic bacteria.No anaerobic growth.No further
workup routinely performed

STAIN

No squamous epithelial cells seen

No polymorphonuclear leukocytes seen

Moderate Gram positive cocci

SUSCEPTIBILITY

Pseudomonas
aeruginosa
METHOD MICROBROTH
DILUTIONS

CEFEPIME 4 Susceptible
CIPROFLOXACIN <=0.25 Susceptible
LEVOFLOXACIN 0.25 Susceptible
PIPERACILLIN TAZOBACTAM 8 Susceptible
TOBRAMYCIN <=1 Susceptible

null Performing Location LABORATORY [facility] - [address] [place], [place] [address]
--- OUTSIDE RECORDS SUMMARY | 2023-12-08 02:52 | External Medical Summary ---
Author Name Unknown Address Unknown Organization K1F:LABORATORY [facility] - [address] [place] [address] Laboratory Report Ordering Provider Test Date Status BRONWYN BERNARD 09/28/2023 04:26:00 Final Observation Date Value Abnormality Reference (Units ) Status WBC, Total 09/28/2023 04:26:00 8.61 4.00-10.80 (K/uL) Final RBC 09/28/2023 04:26:00 2.38 3.85-5.15 (M/uL) Final Hemoglobin 09/28/2023 04:26:00 6.7 Below low normal 12.0-15.3 (g/dL) Final HCT 09/28/2023 04:26:00 21.2 Below low normal 36.0-45.2 (%) Final MCV 09/28/2023 04:26:00 89.1 81.5-97.5 (fL) Final MCH 09/28/2023 04:26:00 28.2 27.0-34.0 (pg) Final MCHC 09/28/2023 04:26:00 31.6 32.0-36.0 (g/dL) Final RDW 09/28/2023 04:26:00 14.8 11.5-15.5 (%) Final Platelets 09/28/2023 04:26:00 370 140-400 (K/uL) Final MPV 09/28/2023 04:26:00 10.9 6.6-11.1 (fL) Final Nucleated erythrocytes/100 leukocytes [Ratio] in Blood by Automated count 09/28/2023 04:26:00 0 <=0 (/100 WBCs) Final Performing Location LABORATORY [facility] - [address] [place] [address]
--- OUTSIDE RECORDS SUMMARY | 2023-12-08 02:52 | External Medical Summary ---
Author Name Unknown Address Unknown Organization K1F:[facility] [address] [facility] [place] [address] Laboratory Report Ordering Provider Test Date Status DENISHA ANDRADE 10/03/2023 15:52:12 Final SYMPTOMATIC Observation Date Value Abnormality Reference (Units ) Status Adenovirus DNA [Presence] in Nasopharynx by BLAISE with non-probe detection 10/03/2023 15:52:12 Negative Negative Final Human coronavirus 229E RNA [Presence] in Nasopharynx by BLAISE with non-probe detection 10/03/2023 15:52:12 Negative Negative Final Human coronavirus HKU1 RNA [Presence] in Nasopharynx by BLAISE with non-probe detection 10/03/2023 15:52:12 Negative Negative Final Human coronavirus NL63 RNA [Presence] in Nasopharynx by BLAISE with non-probe detection 10/03/2023 15:52:12 Negative Negative Final Human coronavirus OC43 RNA [Presence] in Nasopharynx by BLAISE with non-probe detection 10/03/2023 15:52:12 Negative Negative Final SARS-CoV-2 (COVID-19) RNA [Presence] in Nasopharynx by BLAISE with non-probe detection 10/03/2023 15:52:12 Negative Negative Final Human metapneumovirus RNA [Presence] in Nasopharynx by BLAISE with non-probe detection 10/03/2023 15:52:12 Negative Negative Final Rhinovirus+Enterovirus RNA [Presence] in Nasopharynx by BLAISE with non-probe detection 10/03/2023 15:52:12 Positive Abnormal Negative Final Rhinovirus/Enterovirus detec zain by PCR (amplified probe).

Influenza virus A RNA [Prese nce] in Nasopharynx by BLAISE with non-probe detection 10/03/2023 15:52:12 Negative Negative Final Influenza virus B RNA [Prese nce] in Nasopharynx by BLAISE with non-probe detection 10/03/2023 15:52:12 Negative Negative Final Parainfluenza virus 1 RNA [P resence] in Nasopharynx by BLAISE with non-probe detection 10/03/2023 15:52:12 Negative Negative Final Parainfluenza virus 2 RNA [P resence] in Nasopharynx by BLAISE with non-probe detection 10/03/2023 15:52:12 Negative Negative Final Parainfluenza virus 3 RNA [P resence] in Nasopharynx by BLAISE with non-probe detection 10/03/2023 15:52:12 Negative Negative Final Parainfluenza virus 4 RNA [P resence] in Nasopharynx by BLAISE with non-probe detection 10/03/2023 15:52:12 Negative Negative Final Respiratory syncytial virus RNA [Presence] in Nasopharynx by BLAISE with non-probe detection 10/03/2023 15:52:12 Negative Negative F inal Bordetella pertussis.pertuss is toxin promoter region [Presence] in Nasopharynx by BLAISE with non-probe detection 10/03/2023 15:52:12 Negative Negative Final Chlamydophila pneumoniae DNA [Presence] in Nasopharynx by BLAISE with non-probe detection 10/03/2023 15:52:12 Negative Negative Final Mycoplasma pneumoniae DNA [P resence] in Nasopharynx by BLAISE with non-probe detection 10/03/2023 15:52:12 Negative Negative Final Bordetella parapertussis IS1 001 DNA [Presence] in Nasopharynx by BLAISE with non-probe detection 10/03/2023 15:52:12 Negative Negative F inal
The primers that detect Rhinovirus may cross react with some Enterorviruses. The validation of bronchial specimens, tracheal aspirates, and throats for this assay was developed and performance characteristics determined by [employer]. The validation of alternate specimen types has not been cleared or approved by the U.S. Food and Drug Administration (FDA). It has been determined that such clearance or approval is not necessary. [facility] [place] [address]
--- OUTSIDE RECORDS SUMMARY | 2023-12-08 02:52 | External Medical Summary ---
Author Name Unknown Address Unknown Organization K1F:LABORATORY [facility] - [address] [place] [address] Laboratory Report Ordering Provider Test Date Status BRONWYN BERNARD 09/12/2023 04:25:00 Final Observation Date Value Abnormality Reference (Units ) Status BUN 09/12/2023 04:25:00 86 Above high normal 6-20 (mg/dL) Final Creatinine 09/12/2023 04:25:00 2.1 Above high normal 0.5-1.0 (mg/dL) Final Glomerular filtration rate/1.73 sq M.predicted [Volume Rate/Area] in Serum, Plasma or Blood by Creatinine-based formula (CKD-EPI) 09/12/2023 04:25:00 26 Below low normal >=60 (mL/min) Final eGFR is calculated based on the CKD-EPI 2020 equation Sodium 09/12/2023 04:25:00 137 135-146 (m mol/L) Final Potassium 09/12/2023 04:25:00 4.7 3.5-5.1 (m mol/L) Final Cl 09/12/2023 04:25:00 104 98-107 (mm ol/L) Final CO2 09/12/2023 04:25:00 21 Below low normal 22- 32 (mmol/L) Final Anion gap 09/12/2023 04:25:00 12 7-15 (mmol /L) Final Glucose 09/12/2023 04:25:00 85 70-120 (mg /dL) Final Calcium 09/12/2023 04:25:00 8.3 Below low normal 8.4 -10.2 (mg/dL) Final Performing Location LABORATORY [facility] - [address] [facility] [address] [place] [address]
--- OUTSIDE RECORDS SUMMARY | 2023-12-08 02:52 | External Medical Summary | Summary of Care ---
Author Name Unknown Organization [facility] Address [address] [place] [address] Phone [phone] Care Team Providers Care Dental Chair Assembler Name Role Phone Paco Cordero MD Primary Care Provider + [phone] Reason for Visit * Reason Onset Date Comments Scheduling 09/28/2023 PRBC Encounter Details Date Type Department Care Team (Late st Contact Info) Description 09/28/2023 Telephone Hematology/Oncology Treatment, [facility] [address] [place] [address] Paco Cordero MD [address] [place] [address] [facility] [place] [address] Scheduling (PRBC) Allergies Active Allergy Reactions Criticality Noted Date Comments Amoxicillin 06/26/2014 Clarithromycin Other (Please comment) High 01/16/2023 Heart racing Dextromethorphan Hives High 01/16/2023 Doxylamine Hives High 01/16/2023 Food (See Comments) Hives 06/20/2023 Arnshane's brand 7 Grain Bread Latex 06/18/2014 Aizjczlmn-Tayiuutopb-Zz-Ap ap Edema face/lips/tongue,It katie High 11/11/2010 Sulfa [...] 50 MCG/ACT Nasal Suspension (Flonase) Administer 1 [place] into nostril in the morning. Active Folic [...] encounter Miscellaneous Notes * Telephone Encounter - Sydnee Tran RN - 09/28/2023 10:48 AM EDT Agustina calling in asking if we received the fax yet for 1 unit PRBC for this patient. Fax now scanned into chart. Spoke with treatment room - can add this patient on today. Agustina aware patient needs type and screen at 12 and they need to take that order to the lab to drawand then present to the clinic at 1 for her 1 unit PRBC for a hgb of 6.7. Blood bank contacted and spoke with Aure. Aware of when the blood would be needed. documented in this encounter Plan of Treatment Upcoming Encounters Date Type Department Care Team (Late st Contact Info) Description 09/28/2023 12:00 PM EDT Laboratory Laboratory, [address] [address] [facility], Lab [address] [place] [address] 09/28/2023 1:00 PM EDT Hem/Onc Treatment Hematology/Oncology Treatment, [address] [address] [facility], Chair2 Hem Onc [address] [place] [address] 12/25/2023 10:00 AM EDT Office Visit NephrologyKaterin [address] [place] [address] Joslyn Barney MD [address] [place] [address] Health Maintenance Due Date Last Done Comments [...] 01/22/2018, Additional history exists GFR 03/30/2024 09/28/2023, 0705/2023, 09/10/2023, Additional history exists TSH 06/26/2024 06/27/2023, [...] Documents on File Type Date Recorded Patient Vp Software Support Expl anation POLST 08/16/2023 signed on 08/12 [place] ORDERS FOR LIFE-SUSTAINING TREATMENT POLST 06/17/2023 [place] [...] Advance Directives occurred with: Patient Care Teams Dental Chair Assembler Relationship Specialty Start Date End Date Paco Cordero MD [address] [place] [address] PCP - General Family Medicine 09/10/23 documented as of this encounter
--- OUTSIDE RECORDS SUMMARY | 2023-12-08 02:52 | External Medical Summary ---
Author Name Unknown Address Unknown Organization K1F:LABORATORY [facility] - [address] [place] [address] Laboratory Report Ordering Provider Test Date Status BRONWYN BERNARD 10/01/2023 05:47:00 Final Observation Date Value Abnormality Reference (Units ) Status BUN 10/01/2023 05:47:00 111 Above high normal 6-20 (mg/dL) Final Creatinine 10/01/2023 05:47:00 4.0 Above high normal 0.5-1.0 (mg/dL) Final Glomerular filtration rate/1.73 sq M.predicted [Volume Rate/Area] in Serum, Plasma or Blood by Creatinine-based formula (CKD-EPI) 10/01/2023 05:47:00 12 Below low normal >=60 (mL/min) Final eGFR is calculated based on the CKD-EPI 2020 equation. Sodium 10/01/2023 05:47:00 133 Below low normal 135 -146 (mmol/L) Final Potassium 10/01/2023 05:47:00 5.1 3.5-5.1 (m mol/L) Final Cl 10/01/2023 05:47:00 96 Below low normal 98- 107 (mmol/L) Final CO2 10/01/2023 05:47:00 24 22-32 (mmo l/L) Final Anion gap 10/01/2023 05:47:00 13 7-15 (mmol /L) Final Glucose 10/01/2023 05:47:00 120 70-120 (mg /dL) Final Albumin 10/01/2023 05:47:00 2.5 Below low normal 3.8 -5.0 (g/dL) Final AST (Aspartate aminotransferase) 10/01/2023 05:47:00 18 10-35 (U/L) Fin al Alk Phos 10/01/2023 05:47:00 256 Above high normal 35 -130 (U/L) Final Bilirubin, Total 10/01/2023 05:47:00 <0.2 <=1 .2 (mg/dL) Final Calcium 10/01/2023 05:47:00 8.1 Below low normal 8.4 -10.2 (mg/dL) Final Protein 10/01/2023 05:47:00 5.3 Below low normal 6.0 -8.3 (g/dL) Final ALT (Alanine aminotransferase) 10/01/2023 05:47:00 13 10-35 (U/L) Dante paris [facility] LABORATORY [address] [place] [address]
--- OUTSIDE RECORDS SUMMARY | 2023-12-08 02:52 | External Medical Summary ---
Author Name Unknown Address Unknown Organization K1F:LABORATORY [facility] - [address] [place] [address] Laboratory Report Ordering Provider Test Date Status CRUZ ANDRADERufino 10/03/2023 16:36:00 Final Exclude Heart Failure: <300 pg/mL
Diagnose Heart Failure:
Age <50 yr: >450 pg/mL
50-75 yr: >900 pg/mL
>75 yr: >1800 pg/mL
GFR is 30-59 mL/min: >1200 pg/mL or Age- adjusted values
GFR <30 mL/min: do not use, not reliable

Prognostic threshold: 1000 pg/mL Observation Date Value Abnormality Reference (Units ) Status BNP, Pro-hormone 10/03/2023 16:36:00 [address] Above high no rmal <300 (pg/mL) Final Performing Location LABORATORY [facility] - [address] [place] [address]
--- OUTSIDE RECORDS SUMMARY | 2023-12-08 02:52 | External Medical Summary ---
Author Name Unknown Address Unknown Organization K1F:LABORATORY [facility] - [address] [place] [address] Laboratory Report Ordering Provider Test Date Status BRONWYN BERNARD 09/26/2023 04:30:00 Final Observation Date Value Abnormality Reference (Units ) Status WBC, Total 09/26/2023 04:30:00 9.08 4.00-10.80 (K/uL) Final RBC 09/26/2023 04:30:00 2.49 3.85-5.15 (M/uL) Final Hemoglobin 09/26/2023 04:30:00 7.2 Below low normal 12.0-15.3 (g/dL) Final HCT 09/26/2023 04:30:00 22.3 Below low normal 36.0-45.2 (%) Final MCV 09/26/2023 04:30:00 89.6 81.5-97.5 (fL) Final MCH 09/26/2023 04:30:00 28.9 27.0-34.0 (pg) Final MCHC 09/26/2023 04:30:00 32.3 32.0-36.0 (g/dL) Final RDW 09/26/2023 04:30:00 14.6 11.5-15.5 (%) Final Platelets 09/26/2023 04:30:00 398 140-400 (K/uL) Final MPV 09/26/2023 04:30:00 10.6 6.6-11.1 (fL) Final Nucleated erythrocytes/100 leukocytes [Ratio] in Blood by Automated count 09/26/2023 04:30:00 0 <=0 (/100 WBCs) Final Performing Location LABORATORY [facility] - [address] [place] [address]
--- OUTSIDE RECORDS SUMMARY | 2023-12-08 02:52 | External Medical Summary ---
Author Name Unknown Address Unknown Organization K1F:LABORATORY [facility] - [address] [place] [address] Laboratory Report Ordering Provider Test Date Status BRONWYN BERNARD 09/28/2023 04:26:00 Final Observation Date Value Abnormality Reference (Units ) Status BUN 09/28/2023 04:26:00 92 Above high normal 6-20 (mg/dL) Final Creatinine 09/28/2023 04:26:00 3.2 Above high normal 0.5-1.0 (mg/dL) Final Glomerular filtration rate/1.73 sq M.predicted [Volume Rate/Area] in Serum, Plasma or Blood by Creatinine-based formula (CKD-EPI) 09/28/2023 04:26:00 15 Below low normal >=60 (mL/min) Final eGFR is calculated based on the CKD-EPI 2020 equation. Sodium 09/28/2023 04:26:00 135 135-146 (m mol/L) Final Potassium 09/28/2023 04:26:00 4.6 3.5-5.1 (m mol/L) Final Cl 09/28/2023 04:26:00 97 Below low normal 98- 107 (mmol/L) Final CO2 09/28/2023 04:26:00 25 22-32 (mmo l/L) Final Anion gap 09/28/2023 04:26:00 13 7-15 (mmol /L) Final Glucose 09/28/2023 04:26:00 209 Above high normal 70 -120 (mg/dL) Final Calcium 09/28/2023 04:26:00 7.8 Below low normal 8.4 -10.2 (mg/dL) Final Performing Location LABORATORY [facility] - [address] [place] [address]
--- OUTSIDE RECORDS SUMMARY | 2023-12-08 02:52 | External Medical Summary ---
Author Name Unknown Address Unknown Organization K01:LABORATORY [facility] - [address] [place] [place] [address] Laboratory Report Ordering Provider Test Date Status BRONWYN BERNARD 09/12/2023 04:25:00 Final Observation Date Value Abnormality Reference (Units ) Status Erythrocyte sedimentation rate by Photometric method 09/12/2023 04:25:00 52 Above high normal <30 (mm/hour) Final Performing Location LAB[facility]ATORY [facility] - [address] [place] [address]
--- OUTSIDE RECORDS SUMMARY | 2023-12-08 02:52 | External Medical Summary | Summary of Care ---
Author Name Unknown Organization [facility] Address [address] [place] [address] Phone [phone] Care Team Providers Care Casino Banker Name Role Phone Paco Cordero MD Primary Care Provider + [phone] Reason for Visit * Reason Comments Infusion Blood transfusion Encounter Details Date Type Department Care Team (Latest Contact Info) Description 09/28/2023 1:00 PM EDT Hem/Onc Treatment Hematology/Oncology Treatment, [address] [address] [facility], Chair2 Hem Onc [address] [place] [address] [phone] Iron deficiency anemia, unspecified iron deficiency anemia type* Allergies Active Allergy Reactions Criticality Noted Date Comments Amoxicillin 06/26/2014 Clarithromycin Other (Please comment) High 01/16/2023 Heart racing Dextromethorphan Hives High 01/16/2023 Doxylamine Hives High 01/16/2023 Food (See Comments) Hives 06/20/2023 Arn[employer]'s brand 7 Grain Bread Latex 06/18/2014 Vmvnaxtob-Idynbhuyay-Wq-Ap ap Edema face/lips/tongue,It katie High 11/11/2010 Sulfa [...] 50 MCG/ACT Nasal Suspension (Flonase) Administer 1 [place] into nostril in the morning. Active Folic [...] Sign Reading Time Taken Comments Blood Pressure 143/69 09/28/2023 3:58 PM EDT Pulse 55 09/28/2023 3:58 PM EDT Temperature 36.6 C (97.8 F) 09/28/2023 3:58 PM ED T Respiratory Rate 18 09/28/2023 3:58 PM EDT Oxygen Saturation 99% 09/28/2023 12:26 PM EDT Inhaled Oxygen Concentration - - Weight - - Height - - Body Mass Index - - documented in this encounter Functional Status Functional [...] (15 years old or older) Yes 08/15/19 24 Cognitive Status Response Date of Assessm ent Because of a physical, menta l, or emotional condition, do you have serious difficulty concentrating, remembering, or making decisions? (5 years old or older) No 08/15/2023 documented as of this encounter Patient Instructions * Patient Instructions* Lenka Landon RN - 09/28/2023 1:33 PM EDT POST TRANSFUSION INSTRUCTIONS FOR THE AMBULATORY PATIENT You have just completed your blood transfusion. Every effort has been made to ensure that you have received the safest blood product available. However, side effects or complications can occur. Thesecomplications are called transfusion reactions. These reactions are rare. It is important that you be able to recognize a reaction should one occur. If any of the following symptoms occur over the next 12 hours, please notify your physician immediately: Shaking chills Back pain (that is new or different) Chest pain Dizziness (that was not present before the transfusion) Fainting If any of the following symptoms occur over the next 10 days, please notify your physician right away: Fever greater than 100.5F Jaundice (the white part of your eyes turn yellow) Color of urine changes to pink, red, or brown. Shortness of breath (that was not present before the transfusion) Weakness after normal exercise Decrease in amount of urine or frequency or urinating. Every effort has been made to prevent any reactions and make your transfusion as safe as possible. Should you have any questions, please contact your physician. After hours and on weekends, call the hospital-paging flocculator operator at one of the below listed numbers and ask to speak with an emergency room physician or the medical auditor of transfusion medicine. [facility] - [phone] [facility] - [phone] [facility] - [phone] [facility], a campus of [facility] - [phone] [facility] - [phone] [facility] - [phone] [facility] - ext. 4 [facility] - You received 1unit PRBC's Your temperature, pulse, and blood pressure at the end of your transfusion are as follows: Temperature: 36 Pulse: 55 Blood Pressure: 142/68 documented in this encounter Nursing Notes * Charo Salgado RN - 09/28/2023 4:08 PM EDT Lungs clear to auscultation throughout. VSS Tolerated blood transfusion well. Patient left IVC by wheelchair. Accompanied by Friend. Voiced no complaints. Charo Salgado RN 09/28/2023 4:08 PM * Lenka Landon RN - 09/28/2023 12:14 PM EDT Pt here for PRBCs for Hgb of 6.7. Blood consent on file. Pt denies any issues with past infusions. [place] # 8. [facility] Care Plan ID is not set. 09/28/2023 Knowledge Deficit Patient and Caregiver will demonstrate understanding. Assess current knowledge base. Assess level of understanding. Document Education in EHR. Reinforce education. Teach at level of understanding. Teach via preferred learning methods. Utilize teach back methodology. Goals: Pt will be educated on blood transfusions. Possible barriers to meeting goals: none Stability of the patient: Moderately stable - low risk of patient condition declining or worsening Summary regarding today's goals: Met: Pt was educated and verbalized understanding. Lenka Landon RN documented in this encounter Plan of Treatment Upcoming Encounters Date Type Department Care Team (Late st Contact Info) Description 12/25/2023 10:00 AM EDT Office Visit NephKaterin kirkpatrick [address] [place] [place] [address] Joslyn Barney MD [address] [place] [address] [address] Health Maintenance Due Date Last Done Comments [...] 01/22/2018, Additional history exists GFR 03/30/2024 09/28/2023, 070 05/2023, 09/10/2023, Additional history exists TSH 06/26/2024 [...] Procedure Name Priority Date/Time Associated Diagnosis Comments TRANSFUSE PACKED RED BLOOD CELLS Routine 09/28/2023 1:30 PM EDT Iron deficiency anemia, unspecified iron deficiency anemia type PREPARE PACKED RED BLOOD CELLS STAT 09/28/2023 12:40 PM EDT Iron deficiency anemia, unspecified iron deficiency anemia type documented in this encounter Results * TRANSFUSE PACKED RED BLOOD CELLS (09/28/2023 3:46 PM EDT) [facility]haela FLORES D BANK TRANFUS E ORDERABLES * TRANSFUSE PACKED RED BLOOD CELLS (09/28/2023 3:46 PM EDT) Mihaela FLORES D BANK TRANFUS E ORDERABLES * PREPARE PACKED RED BLOOD CELLS (09/28/2023 12:40 PM EDT) [facility] Unit Product Code [id number] 09/28/2023 1:24 PM EDT [facility] Unit Number [id number] 09/28/2023 1:24 PM EDT [facility] Unit ABO A 09/28/2023 1:24 PM EDT [facility] Unit Rh POS 09/28/2023 1:24 PM EDT [facility] Unit Crossmatch Compatible 09/28/2023 1:18 PM EDT [facility] Unit Status IS 09/28/2023 1:24 PM EDT [facility] Unit Blood Type APOS 09/28/2023 1:24 PM EDT [facility] Unit Expiration [id number] 09/28/2023 1:24 PM EDT [facility] Unit Barcode [id number] 09/28/2023 1:24 PM EDT [facility] 09/28/2023 12:4 0 PM EDT Mihaela FLORES BLD BANK PRODUCT ORDERABLES [facility] [address] [place] [address] documented in this encounter Visit Diagnoses Diagnosis Iron deficiency anemia, unspecified iron deficiency anemia type- Primary documented in this encounter Administered Medications Active Administered Medications - up to 3 most recent administrations Medication Order MAR Action Action Date Dose Rate Site diphenhydrAMINE (Benadryl) cap 25 mg 25 mg, Oral, ONCE PRN Other, IIf previous infusion reaction with blood transfusion, Starting on Sun09/28/23 at 1315, Until Discontinued hEParin 100 UNIT/ML Lock Flush inj 500 Units 500 Units (5 mL), IV Lock, PRN Other, IV Flush, Starting on Sun09/28/23 at 1237, Until 09/29/23 at 1236, For 24 hours, Do not flush if lock, PICC, or central line not in place; IV infusing or unable to flush. NSS infusion 500 mL, Intravenous, at 50 mL/hr, CONTINUOUS, Starting on Sun09/28/23 at 1315, Until Sun09/28/23 at 2314 sodium chloride 0.9 % flush central line 10 mL 10 mL, IV Push, PRN Other, IV Flush, Starting on Sun09/28/23 at 1237, Until 09/29/23 at 1236, For 24 hours, Do not flush if lock, PICC, or central line not in place; IV infusing or unable to flush. documented in this encounter Advance Directives Documents on File Type Date Recorded Patient Police Inspector Expl anation POLST 08/16/2023 signed on 08/12 [place] ORDERS FOR LIFE-SUSTAINING TREATMENT POLST 06/17/2023 [place] OR DERS FOR LIFE-SUSTAINING TREATMENT; sign on [...] Advance Directives occurred with: Patient Care Teams Casino Banker Relationship Specialty Start Date End Date Paco Cordero MD [address] [address] PCP - General Family Medicine 09/10/23 documented as of this encounter
--- OUTSIDE RECORDS SUMMARY | 2023-12-08 02:53 | External Medical Summary | Summary of Care ---
Author Name Unknown Organization [facility] Address [address] [address] Phone [phone] Care Team Providers Care Scanning Clerk Name Role Phone Natali Langston Primary Care Provider Reason for Visit * Reason Onset Date Comments Referral 09/10/2023 Encounter Details Date Type Department Care Team (Late st Contact Info) Description 09/10/2023 Telephone Access Center, [address] Ext *DO NOT REMOVE THIS DEPARTMENT* [place] [address] Request, External Referral Referral Allergies Active Allergy Reactions Criticality Noted Date Comments Amoxicillin 06/26/2014 Clarithromycin Other (Please comment) High 01/16/2023 Heart racing Dextromethorphan Hives High 01/16/2023 Doxylamine Hives High 01/16/2023 Food (See Comments) Hives 06/20/2023 [employer] brand 7 Grain Bread Latex 06/18/2014 Vdiwwljcn-Mvhvjsubqo-Vx-Ap ap Edema face/lips/tongue,It katie High 11/11/2010 Sulfa Antibiotics Other (Please comment),Rash 08/03/2000 malaise documented as of this encounter (statuses as of 09/10/2023) Medications Medication Sig Dispensed Refills Start Date [...] in the morning. 60 Tablet 06/23/2023 Active Acetaminophen 325 MG Oral Tablet (Tylenol) Take 2 Tablets by mouth every 6 hours as needed for Pain, Mild, Pain, Moderate or Pain, Severe. Active Bumetanide 2 MG Oral Tablet Take 1 Tablet by mouth in the morning. Active Cholecalciferol 10 MCG (400 UNIT) Oral Tablet (Vitamin D3) Take 50 Tablets by mouth in the morning. Active Ferrous Sulfate 325 (65 Fe) MG Oral Tablet (Feosol) Take 1 Tablet by mouth daily with breakfast. Active Fluticasone Propionate 50 MCG/ACT Nasal Suspension (Flonase) Administer 1 [place] into nostril in the morning. Active Folic [...] needed for Constipation. 12 Suppository 08/21/2023 Active documented as of this encounter (statuses as of 09/10/2023) Active Problems Problem Noted Date Diagnosed Date [...] as of this encounter (statuses as of 09/10/2023) Resolved Problems Problem Noted Date Diagnosed Date Resolved Date Cellulitis of index finger 06/19/2023 0 06/25/2023 Pneumonia of right lower lob e due to infectious organism 06/17/2023 06/18/2023 BPPV (benign paroxysmal positional vertigo) 06/17/2023 06/18/2023 Hypokalemia 06/17/2023 06/19/2023 Hypomagnesemia 06/17/2023 06/25/2023 documented as of this encounter (statuses as of 09/10/2023) Immunizations Name Administration Dates Next Due PPD [...] encounter Miscellaneous Notes * Telephone Encounter - Yi Blanchard OSA - 09/10/2023 9:49 AM EDT Blood transfusion order in [facility]. documented in this encounter Plan of Treatment Health Maintenance Due Date Last Done Comments Depression Screening 1972 HIV Screening 1975 Diabetic Foot Exam 1978 Nephrology Referral 1978 [...] 06/02/2023, 11/10, 01/22/2018, Additional history exists GFR 03/12/2024 09/10/2023, 08/11, 09/01/2023, Additional history exists TSH 06/26/2024 06/27/2023, 04/0 07/2023, 06/02/2023, Additional history exists Phosphate 08/20/2024 08/21/2023, 06/10, 06/24/2023, Additional history exists Hgb 09/09/2024 09/10/2023, 08/11, 08/29/2023, Additional history exists GARDASIL-HPV IMMUNIZATION SERIES Aged [...] Documents on File Type Date Recorded Patient In Store Marketing Associate Expl anation POLST 08/16/2023 signed on 08/12 [place] ORDERS FOR LIFE-SUSTAINING TREATMENT POLST 06/17/2023 [place] [...] Advance Directives occurred with: Patient Care Teams Scanning Clerk Relationship Specialty Start Date End Date Natali Langston DO [address] [facility] [place] [address] [place] [address], [place] [address] PCP - General Family Medicine 06/18/14 documented as of this encounter
--- OUTSIDE RECORDS SUMMARY | 2023-12-08 02:53 | External Medical Summary ---
Author Name Unknown Address Unknown Organization K01:[facility] [place] [address] [place] [address] Laboratory Report Ordering Provider Test Date Status BRONWYN BERNARD 09/05/2023 04:45:00 Final Observation Date Value Abnormality Reference (Units ) Status Erythrocyte sedimentation rate by Photometric method 09/05/2023 04:45:00 60 Above high normal <30 (mm/hour) Final Performing Location [facility] - [address] [place] [address]
--- OUTSIDE RECORDS SUMMARY | 2023-12-08 02:53 | External Medical Summary | Summary of Care ---
Author Name Unknown Organization [facility] Address [address] [facility] [place] [address] Phone [phone] Care Team Providers Care Target Worker Name Role Phone Paco Cordero MD Primary Care Provider + [phone] Reason for Referral * Evaluate & Treat - Unlimited Visits (Within 10 days (routine)) - Authorized Specialty Diagnoses / Procedures Referred By Yessenia gandara Referred To Contact Nephrology Diagnoses Kidney function abnormal Paco Cordero MD [address] [facility] [address] [address] Referral ID Status Reason Start Date Expiration Date Visits Requested Visits Authorized [id number] Authorized Specialty Services Required 09/10/[phone] Question Answer Referral Priority Within 10 days (routine) Where should this appointment be scheduled? Lj What condition is this patient being seen for? Other (please specify) Comments Elevated kidney function Encounter Details Date Type Department Care Team (Late st Contact Info) Description 09/10/2023 Orders Only Access Center, [facility] [address] [facility] *DO NOT REMOVE THIS DEPARTMENT* [place] [address] Request, External Referral Kidney function abnormal* Allergies Active Allergy Reactions Criticality Noted Date Comments Amoxicillin 06/26/2014 Clarithromycin Other (Please comment) High 01/16/2023 Heart racing Dextromethorphan Hives High 01/16/2023 Doxylamine Hives High 01/16/2023 Food (See Comments) Hives 06/20/2023 [employer]'s brand 7 Grain Bread Latex 06/18/2014 Gczanmqbr-Kqcimqymlo-Al-Ap ap Edema face/lips/tongue,It katie High 11/11/2010 Sulfa [...] mL before bedtime. 1800 mL 11 06/13/2023 Active Insulin Glargine 100 UNIT/ML Subcutaneous [...] mouth in the morning. 30 Tablet 3 06/23/2023 Active Potassium Chloride ER 10 MEQ Oral Tablet Extended Release Take 2 Tablets by mouth in the morning. 60 Tablet 3 06/23/2023 Active Acetaminophen 325 MG Oral Tablet [...] 50 MCG/ACT Nasal Suspension (Flonase) Administer 1 [place] into nostril in the morning. Active Folic [...] Upcoming Encounters Date Type Department Care Team ([facility] st Contact Info) Description 09/17/2023 2:00 PM EDT Office Visit Nephrology, [address] [address] Isaías Crespo MD [address] [place] [address] Scheduled Referrals Name Type Priority Associated Diagnoses Orde r Schedule NEPHROLOGY REFERRAL OP Referral Within 10 days (routine) Kidney function abnormal Ordered: 09/10/2023 Health Maintenance Due Date Last Done Comments [...] 08/21/2023, 1 07/2023, 06/24/2023, Additional history exists Hgb 09/09/2024 09/10/2023, [...] as of this encounter Visit Diagnoses Diagnosis Kidney function abnormal- Primary Unspecified disorder of kidney and ureter documented in this encounter Advance Directives Documents on File Type Date Recorded Patient Eyeglass Inspector Expl anation POLST 08/16/2023 signed on 08/12 [place] ORDERS FOR LIFE-SUSTAINING TREATMENT POL 06/17/2023 [place] OR DERS FOR LIFE-SUSTAINING TREATMENT; sign on [...] Advance Directives occurred with: Patient Care Teams Target Worker Relationship Specialty Start Date End Date Paco Cordero MD [address] [place] [address] PCP - General Family Medicine 09/10/23 documented as of this encounter
--- OUTSIDE RECORDS SUMMARY | 2023-12-08 02:53 | External Medical Summary ---
Author Name Unknown Address Unknown Organization K1F:LABORATORY [facility] - [address] [place] [address] Laboratory Report Ordering Provider Test Date Status BRONWYN BERNARD 09/01/2023 07:00:00 Final Observation Date Value Abnormality Reference (Units ) Status BUN 09/01/2023 07:00:00 112 Above high normal 6-20 (mg/dL) Final Creatinine 09/01/2023 07:00:00 2.7 Above high normal 0.5-1.0 (mg/dL) Final Glomerular filtration rate/1.73 sq M.predicted [Volume Rate/Area] in Serum, Plasma or Blood by Creatinine-based formula (CKD-EPI) 09/01/2023 07:00:00 19 Below low normal >=60 (mL/min) Final eGFR is calculated based on the CKD-EPI 2020 equation Sodium 09/01/2023 07:00:00 131 Below low normal 135 -146 (mmol/L) Final Potassium 09/01/2023 07:00:00 5.5 Above high normal 3. 5-5.1 (mmol/L) Final Cl 09/01/2023 07:00:00 98 98-107 (mm ol/L) Final CO2 09/01/2023 07:00:00 18 Below low normal 22- 32 (mmol/L) Final Anion gap 09/01/2023 07:00:00 15 7-15 (mmol /L) Final Glucose 09/01/2023 07:00:00 195 Above high normal 70 -120 (mg/dL) Final Calcium 09/01/2023 07:00:00 8.8 8.4-10.2 ( mg/dL) Final Performing Location [facility] - [address] [place] [address]
--- OUTSIDE RECORDS SUMMARY | 2023-12-08 02:53 | External Medical Summary ---
Author Name Unknown Address Unknown Organization K1F:LABORATORY [facility] - [address] [place] [address] Laboratory Report Ordering Provider Test Date Status BRONWYN BERNARD 09/05/2023 04:45:00 Final Observation Date Value Abnormality Reference (Units ) Status WBC, Total 09/05/2023 04:45:00 11.26 Above high normal 4.00-10.80 (K/uL) Final RBC 09/05/2023 04:45:00 2.77 3.85-5.15 (M/uL) Final Hemoglobin 09/05/2023 04:45:00 7.9 Below low normal 12.0-15.3 (g/dL) Final HCT 09/05/2023 04:45:00 24.8 Below low normal 36.0-45.2 (%) Final MCV 09/05/2023 04:45:00 89.5 81.5-97.5 (fL) Final MCH 09/05/2023 04:45:00 28.5 27.0-34.0 (pg) Final MCHC 09/05/2023 04:45:00 31.9 32.0-36.0 (g/dL) Final RDW 09/05/2023 04:45:00 16.1 11.5-15.5 (%) Final Platelets 09/05/2023 04:45:00 269 140-400 (K/uL) Final MPV 09/05/2023 04:45:00 12.2 6.6-11.1 (fL) Final Nucleated erythrocytes/100 leukocytes [Ratio] in Blood by Automated count 09/05/2023 04:45:00 0 <=0 (/100 WBCs) Final Performing Location [facility] - [address] [place] [address]
--- OUTSIDE RECORDS SUMMARY | 2023-12-08 02:53 | External Medical Summary | Summary of Care ---
Author Name Unknown Organization [facility] Address [address] [address] Phone [phone] Care Team Providers Care Cupola Liner Name Role Phone Natali Langston Primary Care Provider Reason for Visit * Reason Onset Date Comments Referral 09/10/2023 Encounter Details Date Type Department Care Team (Late st Contact Info) Description 09/10/2023 Telephone Access Center, [address] Ext *DO NOT REMOVE THIS DEPARTMENT* [place] [address] Request, External Referral Referral Allergies Active Allergy Reactions Criticality Noted Date Comments Amoxicillin 06/26/2014 Clarithromycin Other (Please comment) High 01/16/2023 Heart racing Dextromethorphan Hives High 01/16/2023 Doxylamine Hives High 01/16/2023 Food (See Comments) Hives 06/20/2023 [employer] brand 7 Grain Bread Latex 06/18/2014 Ipmlwchya-Rgseacwzho-Km-Ap ap Edema face/lips/tongue,It katie High 11/11/2010 Sulfa [...] 50 MCG/ACT Nasal Suspension (Flonase) Administer 1 [place] into nostril in the morning. Active Folic [...] 9:49 AM EDT Blood transfusion order in [facility]. documented in this encounter Plan of Treatment [...] Documents on File Type Date Recorded Patient Fashion Design Professor Expl anation POLST 08/16/2023 signed on 08/12 [place] ORDERS FOR LIFE-SUSTAINING TREATMENT POLST 06/17/2023 [place] [...] Advance Directives occurred with: Patient Care Teams Cupola Liner Relationship Specialty Start Date End Date Natali Langston DO [address] [facility] [address] [place] [address], [place] [address] PCP - General Family Medicine 06/18/14 documented as of this encounter
--- OUTSIDE RECORDS SUMMARY | 2023-12-08 02:53 | External Medical Summary | Summary of Care ---
Author Name Unknown Organization [facility] Address [address] [place] [address] Phone [phone] Care Team Providers Care Comic Book Writer Name Role Phone Paco Cordero MD Primary Care Provider + [phone] Reason for Visit * Reason Comments Outpatient Testing Encounter Details Date Type Department Care Team (Late st Contact Info) Description 09/10/2023 12:00 PM EDT Laboratory Laboratory, [facility] [address] [place] [id number] [facility], Lab [address] [place], [place] [id number] Anemia Allergies Active Allergy Reactions Criticality Noted Date Comments Amoxicillin 06/26/2014 Clarithromycin Other (Please comment) High 01/16/2023 Heart racing Dextromethorphan Hives High 01/16/2023 Doxylamine Hives High 01/16/2023 Food (See Comments) Hives 06/20/2023 [employer] brand 7 Grain Bread Latex 06/18/2014 Pvsxdoerb-Ltvklgjjsf-Vw-Ap ap Edema face/lips/tongue,It katie High 11/11/2010 Sulfa [...] 50 MCG/ACT Nasal Suspension (Flonase) Administer 1 [place] into nostril in the morning. Active Folic [...] Team (Late st Contact Info) Description 09/10/2023 1:00 PM EDT Hem/Onc Treatment Hematology/Oncology Treatment, [address] [place] [address] [facility], Chair3 Hem Onc [address] [place] [address] Arrived 09/17/2023 2:00 PM EDT Office Visit Nephrology, [facility] [address] [facility] [address] Isaías Crespo MD [address] [place] [address] Pending Results Name Type Priority Associated Diagnoses Date /Time TYPE AND SCREEN Lab STAT Anemia 09/10/2023 12:24 PM EDT Health Maintenance Due Date Last [...] Cancer Screening 11/11/2013 Pap Smear 11/11/2013 11/11/2010, 0904/2010, 12/10/2002, Additional history exists Pneumococcal Vaccine: Pediatrics [...] Documents on File Type Date Recorded Patient Statement Processor Expl anation POLST 08/16/2023 signed on 08/12 [place] ORDERS FOR LIFE-SUSTAINING TREATMENT POLST 06/17/2023 [place] OR DERS FOR LIFE-SUSTAINING TREATMENT; sign on [...] Advance Directives occurred with: Patient Care Teams Comic Book Writer Relationship Specialty Start Date End Date [place], Paco M, MD [address] [place] [address] PCP - General Family Medicine 09/10/23 documented as of this encounter
--- OUTSIDE RECORDS SUMMARY | 2023-12-08 02:53 | External Medical Summary ---
Author Name Unknown Address Unknown Organization K1F:LABORATORY [facility] - [address] [place] [address] Laboratory Report Ordering Provider Test Date Status BRONWYN BERNARD 09/05/2023 04:45:00 Final Observation Date Value Abnormality Reference (Units ) Status CRP, low-sensitivity 09/05/2023 04:45:00 5 <=5 (mg/L) Final Performing Location LAB[facility] - [address] [place] [address]
--- OUTSIDE RECORDS SUMMARY | 2023-12-08 02:53 | External Medical Summary | Summary of Care ---
Author Name Unknown Organization [facility] Address [address] [place] [address] Phone [phone] Care Team Providers Care Shampooer Name Role Phone Paco Cordero MD Primary Care Provider + [phone] Reason for Visit * Reason Comments Treatment Blood transfusion Encounter Details Date Type Department Care Team (Latest Contact Info) Description 09/10/2023 1:00 PM EDT Hem/Onc Treatment Hematology/Oncology Treatment, [address] [address] [facility], Chair3 Hem Onc [address] [place] [address] Iron deficiency anemia, unspecified iron deficiency anemia type* Allergies Active Allergy Reactions Criticality Noted Date Comments Amoxicillin 06/26/2014 Clarithromycin Other (Please comment) High 01/16/2023 Heart racing Dextromethorphan Hives High 01/16/2023 Doxylamine Hives High 01/16/2023 Food (See Comments) Hives 06/20/2023 [employer]'s brand 7 Grain Bread Latex 06/18/2014 Omwuwelwr-Kydsncramq-Nr-Ap ap Edema face/lips/tongue,It katie High 11/11/2010 Sulfa [...] 50 MCG/ACT Nasal Suspension (Flonase) Administer 1 [place] into nostril in the morning. Active Folic [...] Sign Reading Time Taken Comments Blood Pressure 139/70 09/10/2023 4:29 PM EDT Pulse 60 09/10/2023 4:29 PM EDT Temperature 35.8 C (96.4 F) 09/10/2023 4:29 PM ED T Respiratory Rate 18 09/10/2023 4:16 PM EDT Oxygen Saturation - - Inhaled Oxygen Concentration - - Weight - [...] of this encounter Nursing Notes * Ifrah Bojorquez, RN - 09/10/2023 4:44 PM EDT Patient in chair 5 for her blood transfusion today. Tolerated blood without complications. Patient left IVC by wheelchair. Accompanied by Friend ([facility]). Voiced no complaints. Ifrah Bojorquez RN 09/10/2023 4:45 PM documented in this encounter Plan of Treatment Upcoming Encounters Date Type Department Care Team (Late st Contact Info) Description 09/17/2023 2:00 PM EDT Office Visit Nephrology, [address] [address] Isaías Crespo MD [address] [place] [address] [phone] Health Maintenance Due Date Last Done Comments [...] Comments TRANSFUSE PACKED RED BLOOD CELLS Routine 09/10/2023 2:10 PM EDT Iron deficiency anemia, unspecified iron deficiency anemia type PREPARE PACKED RED BLOOD CELLS STAT 09/10/2023 1:55 PM EDT Iron deficiency anemia, unspecified iron deficiency anemia type documented in this encounter Results * TRANSFUSE PACKED RED BLOOD CELLS (09/10/2023 4:17 PM EDT) Katherine DE DIOS BANK TRANFUSE ORDERABLES * TRANSFUSE PACKED RED BLOOD CELLS (09/10/2023 4:17 PM EDT) Katherine FLORES D BANK TRANFUSE ORDERABLES * PREPARE PACKED RED BLOOD CELLS (09/10/2023 1:55 PM EDT) [facility] Unit Product Code [id number] 09/10/2023 2:03 PM EDT [facility] Unit Number [id number] 09/10/2023 2:03 PM EDT [facility] Unit ABO A 09/10/2023 2:03 PM EDT [facility] Unit Rh POS 09/10/2023 2:03 PM EDT [facility] Unit Crossmatch Compatible 09/10/2023 1:59 PM EDT [facility] Unit Status IS 09/10/2023 2:03 PM EDT [facility] Unit Blood Type APOS 09/10/2023 2:03 PM EDT [facility] Unit Expiration [id number] 09/10/2023 2:03 PM EDT [facility] Unit Barcode [id number] 09/10/2023 2:03 PM EDT [facility] 09/10/2023 1:55 PM EDT Katherine FLORES D BANK PRODUCT ORDERABLES [facility] [address] [place] [address] documented in this encounter Visit Diagnoses Diagnosis Iron deficiency anemia, unspecified iron deficiency anemia type- Primary documented in this encounter Administered Medications Active Administered Medications - up to 3 most recent administrations Medication Order MAR Action Action Date Dose Rate Site Acetaminophen (Tylenol) tab 650 mg 650 mg, Oral, ONCE PRN Other, If previous infusion reaction with blood transfusion, Starting on Sun09/10/23 at 1500, Until Discontinued, Maximum of 4 grams (4000 mg) per day. Acetaminophen (Tylenol) tab 650 mg 650 mg, Oral, ONCE PRN Other, Transfusion Reaction, Starting on Sun09/10/23 at 1350, Until Sun09/11/23 at 1349, For 24 hours, Maximum of 4 grams (4000 mg) per day. diphenhydrAMINE (Benadryl) cap 25 mg 25 mg, Oral, ONCE PRN Other, IIf previous infusion reaction with blood transfusion, Starting on Sun09/10/23 at 1500, Until Discontinued diphenhydrAMINE (Benadryl) cap 25 mg 25 mg, Oral, ONCE PRN Other, Transfusion Reaction, Starting on Sun09/10/23 at 1350, Until Sun09/11/23 at 1349, For 24 hours diphenhydrAMINE (Benadryl) inj 50 mg 50 mg, IV Push, ONCE PRN Other, Hypersensitivity Reaction, Starting on Sun09/10/23 at 1350, Until Sun09/11/23 at 1349, For 24 hours EPINEPHrine 1 MG/ML inj 0.3 mg 0.3 mg, Intramuscular, ONCE PRN Other, Hypersensitivity Reaction or Anaphylaxis, Starting on Sun09/10/23 at 1350, Until Sun09/11/23 at 1349, For 24 hours hEParin 100 UNIT/ML Lock Flush inj 500 Units 500 Units (5 mL), IV Lock, PRN Other, IV Flush, Starting on Sun09/10/23 at 1350, Until Sun09/11/23 at 1349, For 24 hours, Do not flush if lock, PICC, or central line not in place; IV infusing or unable to flush. Hydrocortisone Sod Suc (PF) (Solu-Cortef) inj 100 mg 100 mg, IV Push, ONCE PRN Other, If previous infusion reaction with blood transfusion, Starting on Sun09/10/23 at 1500, Until Discontinued Hydrocortisone Sod Suc (PF) (Solu-Cortef) inj 100 mg 100 mg, IV Push, ONCE PRN Other, Hypersensitivity Reaction, Starting on Sun09/10/23 at 1350, Until Sun09/11/23 at 1349, For 24 hours NSS infusion 500 mL, Intravenous, at 50 mL/hr, CONTINUOUS, Starting on Sun09/10/23 at 1500, Until Sun09/11/23 at 0059 oxygen GAS Inhalation, OXYGEN, First dose on Sun09/10/23 at 1600, Until Discontinued, Device/Managed by: Low [...] is greater than or equal to 93% sodium chloride 0.9 % flush central line 10 mL 10 mL, IV Push, PRN Other, IV Flush, Starting on Sun09/10/23 at 1350, Until Sun09/11/23 at 1349, For 24 hours, Do not flush if lock, PICC, or central line not in place; IV infusing or unable to flush. documented in this encounter Advance Directives Documents on File Type Date Recorded Patient Sports Therapist Expl anation POLST 08/16/2023 signed on 08/12 [...] Advance Directives occurred with: Patient Care Teams Shampooer Relationship Specialty Start Date End Date Paco Cordero MD [address] [place] [address] PCP - General Family Medicine 09/10/23 documented as of this encounter
--- OUTSIDE RECORDS SUMMARY | 2023-12-08 02:53 | External Medical Summary | Summary of Care ---
Author Name Unknown Organization [facility] Address [address] [place] [address] Phone [phone] Care Team Providers Care Wax Pattern Assembler Name Role Phone Natali Langston Primary Care Provider Reason for Visit * Reason Onset Date Comments Track Layer Head Documentation 09/06/2023 Ad vanced Care Planning Encounter Details Date Type Department Care Team (Late st Contact Info) Description 09/06/2023 Telephone Care Coordination [address] [place] [address] Aleksandra Liu, SLOT MACHINE FLOOR PERSON [address] [place] [address] Track Layer Head Documentation (Advanced Ca... Allergies Active Allergy Reactions Criticality Noted Date Comments Amoxicillin 06/26/2014 Clarithromycin Other (Please comment) High 01/16/2023 Heart racing Dextromethorphan Hives High 01/16/2023 Doxylamine Hives High 01/16/2023 Food (See Comments) Hives 06/20/2023 [employer]'s brand 7 Grain Bread Latex 06/18/2014 Wjmlxbsxx-Dabnmkiiiq-Xn-Ap ap Edema face/lips/tongue,It katie High 11/11/2010 Sulfa Antibiotics Other (Please comment),Rash 08/03/2000 malaise documented as of this encounter (statuses as of 09/06/2023) Medications Medication Sig Dispensed Refills Start Date [...] 50 MCG/ACT Nasal Suspension (Flonase) Administer 1 [place] into nostril in the morning. Active Folic [...] as of this encounter (statuses as of 09/06/2023) Active Problems Problem Noted Date Diagnosed Date [...] as of this encounter (statuses as of 09/06/2023) Resolved Problems Problem Noted Date Diagnosed Date Resolved Date Cellulitis of index finger 06/19/2023 0 06/25/2023 Pneumonia of right lower lob e due to infectious organism 06/17/2023 06/18/2023 BPPV (benign paroxysmal positional vertigo) 06/17/2023 06/18/2023 Hypokalemia 06/17/2023 06/19/2023 Hypomagnesemia 06/17/2023 06/25/2023 documented as of this encounter (statuses as of 09/06/2023) Immunizations Name Administration Dates Next Due PPD [...] as of this encounter Miscellaneous Notes * ACP (Advance Care Planning) - Aleksandra Liu MSW - 09/06/2023 12:11 PM EDT Advance Care Planning [employer] QA Review of Advance Directives Scanned to Chart POLST scan on 06/17/23; signed on 06/14/23 is Valid. Aleksandra Reyes Cutting Torch Operator General Email: [email or web address] General documented in this encounter Plan of Treatment [...] 06/02/2023, 11/10, 01/22/2018, Additional history exists GFR 03/06/2024 09/05/2023, 08/11, 08/29/2023, Additional history exists TSH 06/26/2024 06/27/2023, 0407/2023, 06/02/2023, Additional history exists Phosphate 08/20/2024 08/21/2023, 06/10, 06/24/2023, Additional history exists Hgb 09/04/2024 09/05/2023, 08/10, 08/22/2023, Additional history exists GARDASIL-HPV IMMUNIZATION SERIES Aged [...] Indicated Resolved Time Enterovirus (resp)/Rhinovirus 08/20/2023 08/20/2023 documented as of this encounter Advance Directives Documents on File Type Date Recorded Patient Supervisor Press Room Expl anation POLST 08/16/2023 signed on 08/12 [place] ORDERS FOR LIFE-SUSTAINING TREATMENT POLST 06/17/2023 [place] OR DERS FOR LIFE-SUSTAINING TREATMENT; sign on [...] Advance Directives occurred with: Patient Care Teams Wax Pattern Assembler Relationship Specialty Start Date End Date Natali Langston DO [address] [place] [address] [place] [address] PCP - General Family Medicine 06/18/14 documented as of this encounter
--- OUTSIDE RECORDS SUMMARY | 2023-12-08 02:53 | External Medical Summary ---
Author Name Unknown Address Unknown Organization K1F:[facility] - [address] [place] [address] Laboratory Report Ordering Provider Test Date Status BRONWYN BERNARD 09/10/2023 04:34:00 Final Observation Date Value Abnormality Reference (Units ) Status BUN 09/10/2023 04:34:00 92 Above high normal 6-20 (mg/dL) Final Creatinine 09/10/2023 04:34:00 2.2 Above high normal 0.5-1.0 (mg/dL) Final Glomerular filtration rate/1.73 sq M.predicted [Volume Rate/Area] in Serum, Plasma or Blood by Creatinine-based formula (CKD-EPI) 09/10/2023 04:34:00 25 Below low normal >=60 (mL/min) Final eGFR is calculated based on the CKD-EPI 2020 equation Sodium 09/10/2023 04:34:00 141 135-146 (m mol/L) Final Potassium 09/10/2023 04:34:00 4.6 3.5-5.1 (m mol/L) Final Cl 09/10/2023 04:34:00 106 98-107 (mm ol/L) Final CO2 09/10/2023 04:34:00 23 22-32 (mmo l/L) Final Anion gap 09/10/2023 04:34:00 12 7-15 (mmol /L) Final Glucose 09/10/2023 04:34:00 103 70-120 (mg /dL) Final Calcium 09/10/2023 04:34:00 8.1 Below low normal 8.4 -10.2 (mg/dL) Final Performing Location [facility] - [address] [place] [address]
--- OUTSIDE RECORDS SUMMARY | 2023-12-08 02:53 | External Medical Summary ---
Author Name Unknown Address Unknown Organization K1F:[facility] - [address] [place] [address] Ave[address] [place] [address] Laboratory Report Ordering Provider Test Date Status BRONWYN BERNARD 09/10/2023 12:24:19 Final Observation Date Value Abnormality Reference (Units ) Status ABO 09/10/2023 12:24:19 A Final RH 09/10/2023 12:24:19 Positive Final RED BLOOD CELL ANTIBODY SCREEN 09/10/2023 12:24:19 Negative Final SPECIMEN EXPIRATION DATE 09/10/2023 12:24:19 09/13/2023 23:59 Final Performing Location [facility] - [address] [place] [address]
--- OUTSIDE RECORDS SUMMARY | 2023-12-08 02:53 | External Medical Summary | Summary of Care ---
Author Name Unknown Organization [facility] Address [address] [place] [address] Phone [phone] Care Team Providers Care Pediatrician Managing Partner Name Role Phone Natali Langston Primary Care Provider Encounter Details Date Type Department Care Team (Late st Contact Info) Description 09/10/2023 Orders Only Hematology/Oncology Treatment, [facility] [address] [facility] [place] [place] [address] Manuelito Rice MD [address] [facility] [address] [place] [id number] Allergies Active Allergy Reactions Criticality Noted Date Comments Amoxicillin 06/26/2014 Clarithromycin Other (Please comment) High 01/16/2023 Heart racing Dextromethorphan Hives High 01/16/2023 Doxylamine Hives High 01/16/2023 Food (See Comments) Hives 06/20/2023 [employer] brand 7 Grain Bread Latex 06/18/2014 Vaylgvkmq-Harvfhxmiz-Ic-Ap ap Edema face/lips/tongue,It katie High 11/11/2010 Sulfa [...] 50 MCG/ACT Nasal Suspension (Flonase) Administer 1 [place] into nostril in the morning. Active Folic [...] as of this encounter Nursing Notes * Sydnee Tran RN - 09/10/2023 10:51 AM EDT Created in error. documented in this encounter Plan of Treatment [...] 09/01/2023, Additional history exists TSH 06/26/2024 06/27/2023, 040 07/2023, 06/02/2023, Additional history exists Phosphate 08/20/2024 [...] Documents on File Type Date Recorded Patient Ski Topper Expl anation POLST 08/16/2023 signed on 08/12 [...] Advance Directives occurred with: Patient Care Teams Pediatrician Managing Partner Relationship Specialty Start Date End Date Natali Langston DO [address] [facility] [address] [place] [address], [place] [address] PCP - General Family Medicine 06/18/14 documented as of this encounter
--- OUTSIDE RECORDS SUMMARY | 2023-12-08 02:53 | External Medical Summary | Summary of Care ---
Author Name Unknown Organization [facility] Address [address] [facility] [address] Phone [phone] Care Team Providers Care Fiber Optics Technician Name Role Phone Natali Langston Primary Care Provider Reason for Visit * Reason Onset Date Comments Referral 09/10/2023 Encounter Details Date Type Department Care Team (Late st Contact Info) Description 09/10/2023 Telephone Access Center, [address] Ext *DO NOT REMOVE THIS DEPARTMENT* [place] [address] Request, External Referral Referral Allergies Active Allergy Reactions Criticality Noted Date Comments Amoxicillin 06/26/2014 Clarithromycin Other (Please comment) High 01/16/2023 Heart racing Dextromethorphan Hives High 01/16/2023 Doxylamine Hives High 01/16/2023 Food (See Comments) Hives 06/20/2023 [employer] brand 7 Grain Bread Latex 06/18/2014 Gvceyvwod-Rwcdjgvxmk-Eo-Ap ap Edema face/lips/tongue,It katie High 11/11/2010 Sulfa [...] 50 MCG/ACT Nasal Suspension (Flonase) Administer 1 [place] into nostril in the morning. Active Folic [...] Telephone Encounter - Sydnee Tran RN - 09/10/2023 11:27 AM EDT Scheduled today at 1300. * Telephone Encounter - Yi Blanchard OSA - 09/10/2023 9:49 AM EDT Blood transfusion order in [facility]. documented in this encounter Plan of Treatment Upcoming Encounters Date Type Department Care Team (Late st Contact Info) Description 09/10/2023 12:00 PM EDT Laboratory Laboratory, [address] [phone] [facility], Lab [address] [place] [address] 09/10/2023 1:00 PM EDT Hem/Onc Treatment Hematology/Oncology Treatment, [facility] [address] [place] [address] [facility], Chair3 Hem Onc [address] [place] [address] Health Maintenance Due Date Last Done Comments [...] Additional history exists COVID-19 Vaccine (2 - 2023-24 season) 2022 08/24/2020 Zoster Vaccines (2 of [...] Documents on File Type Date Recorded Patient Instructor Programmable Controllers Expl anation POLST 08/16/2023 signed on 08/12 [place] ORDERS FOR LIFE-SUSTAINING TREATMENT POLST 06/17/2023 [place] OR DERS FOR LIFE-SUSTAINING TREATMENT; sign on [...] Advance Directives occurred with: Patient Care Teams Fiber Optics Technician Relationship Specialty Start Date End Date Natali Langston DO 6 [facility] [address], [place] [address] PCP - General Family Medicine 06/18/14 documented as of this encounter
--- OUTSIDE RECORDS SUMMARY | 2023-12-08 02:53 | External Medical Summary ---
Author Name Unknown Address Unknown Organization K1F:[facility]ORY [facility] - [address] [place] [address] Laboratory Report Ordering Provider Test Date Status BRONWYN BERNARD 09/05/2023 04:45:00 Final Observation Date Value Abnormality Reference (Units ) Status BUN 09/05/2023 04:45:00 104 Above high normal 6-20 (mg/dL) Final Creatinine 09/05/2023 04:45:00 2.5 Above high normal 0.5-1.0 (mg/dL) Final Glomerular filtration rate/1.73 sq M.predicted [Volume Rate/Area] in Serum, Plasma or Blood by Creatinine-based formula (CKD-EPI) 09/05/2023 04:45:00 21 Below low normal >=60 (mL/min) Final eGFR is calculated based on the CKD-EPI 2020 equation Sodium 09/05/2023 04:45:00 136 135-146 (m mol/L) Final Potassium 09/05/2023 04:45:00 5.7 Above high normal 3. 5-5.1 (mmol/L) Final Cl 09/05/2023 04:45:00 101 98-107 (mm ol/L) Final CO2 09/05/2023 04:45:00 19 Below low normal 22- 32 (mmol/L) Final Anion gap 09/05/2023 04:45:00 16 Above high normal 7- 15 (mmol/L) Final Glucose 09/05/2023 04:45:00 136 Above high normal 70 -120 (mg/dL) Final Calcium 09/05/2023 04:45:00 8.4 8.4-10.2 ( mg/dL) Final Performing Location [facility]ATORY [facility] - [address] [place] [address]
--- OUTSIDE RECORDS SUMMARY | 2023-12-08 02:53 | External Medical Summary | Summary of Care ---
Author Name Unknown Organization [facility] Address [address] [place] [address] Phone [phone] Care Team Providers Care Otr Van Cdl Truck Driver Name Role Phone Natali Langston Primary Care Provider Reason for Visit * Reason Onset Date Comments Scheduling 09/10/2023 PRBC Encounter Details Date Type Department Care Team (Late st Contact Info) Description 09/10/2023 Telephone Hematology/Oncology Treatment, [facility] [address] [place] [address] Paco Cordero MD [address] [place] [address] Scheduling (PRBC) Allergies Active Allergy Reactions Criticality Noted Date Comments Amoxicillin 06/26/2014 Clarithromycin Other (Please comment) High 01/16/2023 Heart racing Dextromethorphan Hives High 01/16/2023 Doxylamine Hives High 01/16/2023 Food (See Comments) Hives 06/20/2023 [employer] brand 7 Grain Bread Latex 06/18/2014 Qxozuquui-Btdcgrdhcb-Jz-Ap ap Edema face/lips/tongue,It katie High 11/11/2010 Sulfa [...] 50 MCG/ACT Nasal Suspension (Flonase) Administer 1 [place] into nostril in the morning. Active Folic [...] Encounter - Sydnee Tran RN - 09/10/2023 10:52 AM EDT [facility] plan built for 1 unit [facility]. Please reach out to group home ([facility]) to set up a time to get this transfused (work with infusion room please). Will need [address] Paco Cordero Will need type and screen 1 hour prior to the time of transfusion and will need to hand carry that order to the lab. Patricia from blood bank aware. documented in this encounter Plan of Treatment Upcoming Encounters Date Type Department Care Team (Late st Contact Info) Description 09/10/2023 12:00 PM EDT Laboratory Laboratory, [address] [phone] [facility], Lab [address] [place] [address] 09/10/2023 1:00 PM EDT Hem/Onc Treatment Hematology/Oncology Treatment, [address] [address] [facility], Chair3 Hem Onc [address] [place] [address] [place] [address] Health Maintenance Due Date Last Done Comments [...] as of this encounter Visit Diagnoses Diagnosis Iron deficiency anemia, unspecified iron deficiency anemia type- Primary documented in this encounter Advance Directives Documents on File Type Date Recorded Patient Business Case Analyst Expl anation POLST 08/16/2023 signed on 08/12 [...] Advance Directives occurred with: Patient Care Teams Otr Van Cdl Truck Driver Relationship Specialty Start Date End Date Natali Langston DO [address] [place] [address] [place] [address] PCP - General Family Medicine 06/18/14 documented as of this encounter
--- OUTSIDE RECORDS SUMMARY | 2023-12-08 02:53 | External Medical Summary ---
Author Name Unknown Address Unknown Organization K1F:LABORATORY [facility] - [address] [place] [address] Laboratory Report Ordering Provider Test Date Status BRONWYN BERNARD 09/10/2023 04:34:00 Final Observation Date Value Abnormality Reference (Units ) Status WBC, Total 09/10/2023 04:34:00 9.51 4.00-10.80 (K/uL) Final RBC 09/10/2023 04:34:00 2.32 3.85-5.15 (M/uL) Final Hemoglobin 09/10/2023 04:34:00 6.8 Below low normal 12.0-15.3 (g/dL) Final HCT 09/10/2023 04:34:00 21.2 Below low normal 36.0-45.2 (%) Final MCV 09/10/2023 04:34:00 91.4 81.5-97.5 (fL) Final MCH 09/10/2023 04:34:00 29.3 27.0-34.0 (pg) Final MCHC 09/10/2023 04:34:00 32.1 32.0-36.0 (g/dL) Final RDW 09/10/2023 04:34:00 16.0 11.5-15.5 (%) Final Platelets 09/10/2023 04:34:00 235 140-400 (K/uL) Final MPV 09/10/2023 04:34:00 11.4 6.6-11.1 (fL) Final Nucleated erythrocytes/100 leukocytes [Ratio] in Blood by Automated count 09/10/2023 04:34:00 0 <=0 (/100 WBCs) Final Performing Location LABORATORY [facility] - [address] [place] [address]
--- OUTSIDE RECORDS SUMMARY | 2023-12-08 02:54 | External Medical Summary ---
Author Name Unknown Address Unknown Organization K1F:LABORATORY [facility] - [address] [place] [address] Laboratory Report Ordering Provider Test Date Status BRONWYN BERNARD 08/29/2023 04:37:00 Final Observation Date Value Abnormality Reference (Units ) Status CRP, low-sensitivity 08/29/2023 04:37:00 <3 <=5 (mg/L) Final Performing Location LAB[facility]ATORY [facility] - [address] [place] [address]
--- OUTSIDE RECORDS SUMMARY | 2023-12-08 02:54 | External Medical Summary ---
Author Name Unknown Address Unknown Organization K01:[facility] [place] [address] [place] [address] Laboratory Report Ordering Provider Test Date Status BRONWYN BERNARD 08/29/2023 04:37:00 Final Observation Date Value Abnormality Reference (Units ) Status Erythrocyte sedimentation rate by Photometric method 08/29/2023 04:37:00 72 Above high normal <30 (mm/hour) Final Performing Location LABORATORY [facility] - [address] [place] [address]
--- OUTSIDE RECORDS SUMMARY | 2023-12-08 02:54 | External Medical Summary ---
Author Name Unknown Address Unknown Organization K1F:LABORATORY [facility] - [address] [place] [address] Laboratory Report Ordering Provider Test Date Status BRONWYN BERNARD 08/29/2023 04:37:00 Final Observation Date Value Abnormality Reference (Units ) Status WBC, Total 08/29/2023 04:37:00 12.99 Above high normal 4.00-10.80 (K/uL) Final RBC 08/29/2023 04:37:00 2.89 3.85-5.15 (M/uL) Final Hemoglobin 08/29/2023 04:37:00 8.3 Below low normal 12.0-15.3 (g/dL) Final HCT 08/29/2023 04:37:00 26.2 Below low normal 36.0-45.2 (%) Final MCV 08/29/2023 04:37:00 90.7 81.5-97.5 (fL) Final MCH 08/29/2023 04:37:00 28.7 27.0-34.0 (pg) Final MCHC 08/29/2023 04:37:00 31.7 32.0-36.0 (g/dL) Final RDW 08/29/2023 04:37:00 15.8 11.5-15.5 (%) Final Platelets 08/29/2023 04:37:00 317 140-400 (K/uL) Final MPV 08/29/2023 04:37:00 11.9 6.6-11.1 (fL) Final Nucleated erythrocytes/100 leukocytes [Ratio] in Blood by Automated count 08/29/2023 04:37:00 0 <=0 (/100 WBCs) Final Performing Location LAB[facility] - [address] [place] [address]
--- OUTSIDE RECORDS SUMMARY | 2023-12-08 02:54 | External Medical Summary ---
Author Name Unknown Address Unknown Organization K1F:[facility] - [address] [place] [address] Laboratory Report Ordering Provider Test Date Status BRONWYN BERNARD 08/29/2023 04:37:00 Final Observation Date Value Abnormality Reference (Units ) Status BUN 08/29/2023 04:37:00 94 Above high normal 6-20 (mg/dL) Final Creatinine 08/29/2023 04:37:00 2.7 Above high normal 0.5-1.0 (mg/dL) Final Glomerular filtration rate/1.73 sq M.predicted [Volume Rate/Area] in Serum, Plasma or Blood by Creatinine-based formula (CKD-EPI) 08/29/2023 04:37:00 19 Below low normal >=60 (mL/min) Final eGFR is calculated based on the CKD-EPI 2020 equation Sodium 08/29/2023 04:37:00 133 Below low normal 135 -146 (mmol/L) Final Potassium 08/29/2023 04:37:00 6.4 Above high normal 3. 5-5.1 (mmol/L) Final Cl 08/29/2023 04:37:00 98 98-107 (mm ol/L) Final CO2 08/29/2023 04:37:00 18 Below low normal 22- 32 (mmol/L) Final Anion gap 08/29/2023 04:37:00 17 Above high normal 7- 15 (mmol/L) Final Glucose 08/29/2023 04:37:00 359 Above high normal 70 -120 (mg/dL) Final Calcium 08/29/2023 04:37:00 8.6 8.4-10.2 ( mg/dL) Final Performing Location [facility] - [address] [place] [address]
--- OUTSIDE RECORDS SUMMARY | 2023-12-08 02:55 | External Medical Summary ---
Author Name Unknown Address Unknown Organization K1F:[facility] - [address] [place] [address] Laboratory Report Ordering Provider Test Date Status VITO MENDOZA 08/21/2023 05:10:00 Final Observation Date Value Abnormality Reference (Units ) Status Magnesium 08/21/2023 05:10:00 1.6 1.5-2.6 (m g/dL) Final Performing Location [facility] - [address] [place] [address]
--- OUTSIDE RECORDS SUMMARY | 2023-12-08 02:55 | External Medical Summary ---
Author Name Unknown Address Unknown Organization K1F:[facility] - [address] [place] [address] Laboratory Report Ordering Provider Test Date Status VITO MENDOZA 08/21/2023 05:10:00 Final Observation Date Value Abnormality Reference (Units ) Status Phosphate 08/21/2023 05:10:00 4.6 2.5-4.8 (m g/dL) Final Performing Location [facility] - [address] [place] [address]
--- OUTSIDE RECORDS SUMMARY | 2023-12-08 02:55 | External Medical Summary | Summary of Care ---
Author Name Unknown Organization [facility] Address [address] [place] [address] Phone [phone] Care Team Providers Care [employer] Name Role Phone Natali Langston Primary Care Provider Reason for Visit * Reason Comments Chest Pain * Auth/Cert Specialty Diagnoses / Procedures Referred By Contac t Referred To Contact [facility] [address] [place] [address] Phone: [phone] Emergency Medicine [facility] [address] [place] [address] Referral ID Status Reason Start Date Expiration Date Visits Re quested Visits Authorized [id number] Encounter Details Date Type Department Care Team (Latest Contact Info) Description 08/15/2023 3:38 AM EDT - 08/21/2023 3:05 PM EDT Hospital Encounter [facility] 3rd Floor [address] [place] [address] Deng Ness DO [address] [place] [id number] Renzo Diop MD [address] [facility] [place] [address] Vazquez Romero [facility] [address] [facility] [place], [place] [id number] Ayana Summers MD [address] [facility] [place], [place] [id number] Richie Melendez DO [address] [place], [place] [id number] EKG Report Discharge Disposition: IP Rehab Allergies Active Allergy Reactions Criticality Noted Date Comments Amoxicillin 06/26/2014 Clarithromycin Other (Please comment) High 01/16/2023 Heart racing Dextromethorphan Hives High 01/16/2023 Doxylamine Hives High 01/16/2023 Food (See Comments) Hives 06/20/2023 Arndocplanner's brand 7 Grain Bread Latex 06/18/2014 Upppsolja-Cuuaiwegtm-Ht-Ap ap Edema face/lips/tongue,It katie High 11/11/2010 Sulfa Antibiotics Other (Please comment),Rash 08/03/2000 malaise documented as of this encounter (statuses as of 08/22/2023) Medications Medication Sig Dispensed Refills Start Date [...] the morning. 60 Tablet 3 4 Active Acetaminophen 325 MG [...] 50 MCG/ACT Nasal Suspension (Flonase) Administer 1 [place] into nostril in the morning. Active Folic [...] needed for Constipation. 12 Suppository 4 Active ceFAZolin IV IV (AMBULATORY) Administer 2 g intravenously in the morning and 2 g before bedtime. 160 g 4 024 Discontinued Miconazole Nitrate 2 % External Powder (Remedy) Apply topically to affected area 2 times a day. Apply to abdominal folds 85 g 3 4 024 Discontinued Polyethylene Glycol 3350 17 GM Oral Packet (Miralax) Take 1 Packet by mouth daily as needed for Constipation. 14 Each 4 024 Discontinued Sennosides-Docus ate Sodium 8.6-50 MG Oral Tablet (Senokot-S) Take 1 Tablet by mouth 2 times a day as needed for Constipation. 30 Tablet 3 4 024 Discontinued Bisacodyl 5 MG Oral Tablet Delayed Release (Dulcolax) Take 1 Tablet by mouth daily as needed for Constipation. 30 Tablet 4 024 Discontinued Torsemide 20 MG Oral Tablet (Demadex) Take 4 Tablets by mouth in the morning and 4 Tablets in the evening. 240 Tablet 3 4 024 Discontinued Atorvastatin Calcium 80 MG Oral Tablet (Lipitor) Take 1 Tablet by mouth in the morning. 024 Discontinued Levemir 100 UNIT/ML Subcutaneous Solution (insulin Detemir) Inject 20 Units under the skin in the morning and 20 Units before bedtime. 024 Discontinued documented as of this encounter (statuses as of 08/22/2023) Active Problems Problem Noted Date Diagnosed Date [...] as of this encounter (statuses as of 08/22/2023) Resolved Problems Problem Noted Date Diagnosed Date Resolved Date Cellulitis of index finger 06/19/2023 0 06/25/2023 Pneumonia of right lower lob e due to infectious organism 06/17/2023 06/18/2023 BPPV (benign paroxysmal positional vertigo) 06/17/2023 06/18/2023 Hypokalemia 06/17/2023 06/19/2023 Hypomagnesemia 06/17/2023 06/25/2023 documented as of this encounter (statuses as of 08/22/2023) Immunizations Name Administration Dates Next Due PPD [...] Sign Reading Time Taken Comments Blood Pressure 126/59 08/21/2023 7:22 AM EDT Pulse 87 08/21/2023 7:22 AM EDT Temperature 36.6 C (97.9 F) 08/21/2023 7:22 AM ED T Respiratory Rate 18 08/21/2023 7:22 AM EDT Oxygen Saturation 99% 08/21/2023 7:22 AM EDT Inhaled Oxygen Concentration - - Weight 132.5 kg (292 lb) 08/21/2023 4:00 AM EDT Height 157.5 cm (5' 2") 08/15/2023 6:25 AM EDT Body Mass Index 53.41 08/15/2023 6:25 AM EDT documented in this [...] No 08/15/2023 documented as of this encounter Discharge Summaries * Richie Melendez, - 08/21/2023 10:10 AM EDT Images from the original note were not included. [address] [address] Admission Date: 08/15/2023 Discharge Date: 08/21/2023 RECOMMENDED TO DO FOR NEXT PROVIDER(S): meropenem 1 gram q8 hours through September 11, 2023. Wound care Continue PT and OT F/U with ID on 08/30 Symptom treatment for URI/rhinovirus REASON(S) FOR MEDICATION CHANGE(S): Gabapentin added for neuropathic pain DISPOSITION ON DISCHARGE: rehab: [facility] Active Hospital Problems Diagnosis *Principal Diagnosis - Demand ischemia (HCC) Elevated troponin Hyperkalemia Hyponatremia Hypoalbuminemia Bifascicular bundle branch block Osteomyelitis of right foot (HCC) (HFpEF) heart failure with preserved ejection fraction (HCC) Atypical chest pain Moderate pulmonary hypertension (HCC) Chronic kidney disease, stage IV (severe) (HCC) Acute on chronic heart failure with preserved ejection fraction (HFpEF) (HCC) Morbid obesity (HCC) Ambulatory dysfunction Gastroesophageal reflux disease Fibromyalgia Anxiety Hypothyroid Hypertension Type 2 diabetes mellitus, with long-term current use of insulin (HCC) Resolved Hospital Problems No resolved problems to display. ADMISSION HISTORY & PHYSICAL EXAM (focused): Per Kali Mooeny MD 63 y woman with below pmh that includes morbid obesity, stage 3-4 ckd, HTN, dm2, fibromyalgia, hypothyroid, anemia of chronic disease, and chf with preserved EF. She was admitted here 2 months ago with chest pain, from a rehab facility. Now she is at [facility], and she cannot participate in rehab due to her foot ulcer and difficulty ambulating. However, she reports that she couldn't get into ahoyer lift yesterday and that she had to put weight on her infected foot. This morning she was sentto ED for evaluation with complaint over chest pain that radiated to right shoulder. While in ED, she received nitroglycerin which may have improved her pain. There is concern that her chf may be worse as cxr shows edema and there is also concern over thromboembolic disease - she will need vq scan due to advanced ckd. Therefore she was recommended for admission. Overall she is a very poor historian and was asleep when I came to examine her. She didn't want to return to rehab as she said it is cold for her there. I suspect she was still very sleepy. Also she mentioned to ED provider that she may have had hallucinations involving her mother. BP: 165 mmHg/74 mmHg (08/15/23 0500) Pulse: 67 (08/15/23 0500) Temp: 36.39 C (08/15/23 0337) Temp Summary: Temp Min: 36.4 C (97.5 F) Max: 36.4 C (97.5 F) SpO2: 96 % (08/15/23 0400) O2 flow rate: Supplemental O2 Delivery: Constitutional: chronically ill appearing middle aged woman resting in bed, not in acute distress. HEENT: normal: normocephalic, atraumatic Eyes: sclera and conjunctiva normal Neck: supple CV: normal rate Chest: normal respiratory effort, lungs clear to auscultation anteriorly, no wheezing Abdomen: soft, bowel sounds normal, no tenderness Extremities: 3+ edema; slightly worse on right Skin: warm, dry, right foot covered in bandages. Neuro: somnolent, on being woken up oriented to person, place but then falls asleep right away, generalized weakness but otherwise non-focal HOSPITAL COURSE (focused): Pt was admitted to the 3rd floor telemetry unit at [facility]. Pt was given IV Lasix. Zaroxolyn was ordered. Meropenem was continued IV as per ID. Cardiology was consulted for acute HFpEF and demand ischemia. Daily I&O and wts were recorded. She was placed on VTE prevention measures with heparin. VQ scan was neg for PE. The patient was placed on O2 and the O2 sat was titrated to > 90%. The pt was placed on nebulizer treatments. Serial lab studies were completed. Pt developed URI symptoms. She tested positive for rhinovirus. CXR was neg for pneumonia. At the time of discharge the vital signs were stable and pt was afebrile. BP 126/59 | Pulse 87 | Temp 36.6 C (97.9 F) (Temporal Artery) | Resp 18 | Ht 1.575 m (5' 2") | Wt 132.5 kg (292 lb) | LMP 11/22/2002 | SpO2 99% | BMI 53.41 kg/m | BSA 2.41 m . The patient denied CP, SOB, VENEGAS, dizziness, vomiting or diarrhea. The physical exam on the day of discharge was stable. The patient was seen with the nurse rounding team. Pt was stable for transfer back to rehab services. Operations & Procedures: none Complications: none applicable Significant Lab and Imaging Results: Results for orders placed or performed during the hospital encounter of 08/15/23 TROPONIN T, HIGH SENSITIVITY Result Value Ref Range Troponin T, High Sensitivity 145 (HH) <=14 ng/L COMPREHENSIVE METABOLIC PANEL Result Value Ref Range BUN 64 (H) 6 - 20 mg/dL Creatinine 2.2 (H) 0.5 - 1.0 mg/dL Estimated Glomerular Filtration Rate 25 (L) >=60 mL/min Sodium 133 (L) 135 - 146 mmol/L Potassium 5.2 (H) 3.5 - 5.1 mmol/L Chloride 105 98 - 107 mmol/L CO2 18 (L) 22 - 32 mmol/L Anion Gap 10 7 - 15 mmol/L Glucose 127 (H) 70 - 120 mg/dL Albumin 2.2 (L) 3.8 - 5.0 g/dL AST 29 10 - 35 U/L Alkaline Phosphatase 173 (H) 35 - 130 U/L Bilirubin, Total <0.2 <=1.2 mg/dL Calcium 8.7 8.4 - 10.2 mg/dL Protein 7.2 6.0 - 8.3 g/dL ALT 8 (L) 10 - 35 U/L CBC Result Value Ref Range WBC 10.40 4.00 - 10.80 K/uL RBC 2.98 3.85 - 5.15 M/uL HGB 8.4 (L) 12.0 - 15.3 g/dL HCT 27.4 (L) 36.0 - 45.2 % MCV 91.9 81.5 - 97.5 fL MCH 28.2 27.0 - 34.0 pg MCHC 30.7 32.0 - 36.0 g/dL RDW 15.9 11.5 - 15.5 % PLT 349 140 - 400 K/uL MPV 10.3 6.6 - 11.1 fL nRBCs 0 <=0 /100 WBCs DIFFERENTIAL, AUTOMATED Result Value Ref Range WBC 10.40 4.00 - 10.80 K/uL Neutrophils % 52.9 40.0 - 75.0 % Lymphocytes % 28.1 18.0 - 42.0 % Monocytes % 8.6 1.0 - 11.0 % Eosinophils % 9.1 (H) 0.0 - 6.0 % Basophils % 0.7 0.0 - 2.0 % Immature Granulocytes % 0.6 0.0 - 2.0 % Absolute Neutrophils 5.51 1.80 - 7.70 K/uL Absolute Lymphocytes 2.92 1.00 - 4.80 K/ul Absolute Monocytes 0.89 0.00 - 1.10 K/uL Absolute Eosinophils 0.95 (H) 0.00 - 0.70 K/uL Absolute Basophils 0.07 0.00 - 0.20 K/uL Absolute Immature Granulocytes 0.06 0.00 - 0.20 K/uL D-DIMER Result Value Ref Range D-Dimer 1.70 (H) <0.50 ug/mL FEU URINALYSIS, REFLEX TO CULTURE (CUP ONLY) Result Value Ref Range Urinalysis, Reflex to Culture Specimen Specimen collected and received URINALYSIS, REFLEX TO CULTURE Result Value Ref Range Color, Urine Yellow Light Yellow, Yellow, Dark Yellow Clarity, Urine Clear Clear Glucose, Urine 250 (A) Negative mg/dL Bilirubin, Urine Negative Negative Ketone, Urine Negative Negative mg/dL Specific [employer], Urine 1.018 1.003 - 1.030 Blood, Urine Moderate (A) Negative pH, Urine 6.5 5.0 - 7.5 Units Protein, Urine >=300 (A) Negative mg/dL Urobilinogen, Urine 0.2 0.2, 1.0 mg/dL Nitrite, Urine Negative Negative Esterase, Urine Negative Negative RBC, Urine 50+ (A) 0 - 2 /HPF WBC, Urine 0-2 0 - 2 /HPF Bacteria, Urine 51-100 (A) 0 - 25 /HPF Culture, Urine TROPONIN T, HIGH SENSITIVITY Result Value Ref Range Troponin T, High Sensitivity 141 (HH) <=14 ng/L BNP, NT-PRO Result Value Ref Range BNP, NT-Pro 1,808 (H) <300 pg/mL TROPONIN T, HIGH SENSITIVITY Result Value Ref Range Troponin T, High Sensitivity 151 (HH) <=14 ng/L CBC Result Value Ref Range WBC 9.14 4.00 - 10.80 K/uL RBC 3.14 3.85 - 5.15 M/uL HGB 8.7 (L) 12.0 - 15.3 g/dL HCT 28.2 (L) 36.0 - 45.2 % MCV 89.8 81.5 - 97.5 fL MCH 27.7 27.0 - 34.0 pg MCHC 30.9 32.0 - 36.0 g/dL RDW 15.8 11.5 - 15.5 % PLT 357 140 - 400 K/uL MPV 10.6 6.6 - 11.1 fL nRBCs 0 <=0 /100 WBCs BASIC METABOLIC PANEL Result Value Ref Range BUN 62 (H) 6 - 20 mg/dL Creatinine 2.1 (H) 0.5 - 1.0 mg/dL Estimated Glomerular Filtration Rate 27 (L) >=60 mL/min Sodium 136 135 - 146 mmol/L Potassium 5.4 (H) 3.5 - 5.1 mmol/L Chloride 105 98 - 107 mmol/L CO2 19 (L) 22 - 32 mmol/L Anion Gap 12 7 - 15 mmol/L Glucose 114 70 - 120 mg/dL Calcium 8.7 8.4 - 10.2 mg/dL ERYTHROCYTE SEDIMENTATION RATE (ESR) Result Value Ref Range ESR 77 (H) <30 mm/hour CRP (INFLAMMATORY MARKER) Result Value Ref Range CRP (Inflammatory Marker) 17 (H) <=5 mg/L BASIC METABOLIC PANEL Result Value Ref Range BUN 62 (H) 6 - 20 mg/dL Creatinine 2.0 (H) 0.5 - 1.0 mg/dL Estimated Glomerular Filtration Rate 28 (L) >=60 mL/min Sodium 137 135 - 146 mmol/L Potassium 4.8 3.5 - 5.1 mmol/L Chloride 105 98 - 107 mmol/L CO2 20 (L) 22 - 32 mmol/L Anion Gap 12 7 - 15 mmol/L Glucose 94 70 - 120 mg/dL Calcium 8.6 8.4 - 10.2 mg/dL MAGNESIUM Result Value Ref Range Magnesium 1.6 1.5 - 2.6 mg/dL CBC Result Value Ref Range WBC 9.34 4.00 - 10.80 K/uL RBC 2.70 3.85 - 5.15 M/uL HGB 7.6 (L) 12.0 - 15.3 g/dL HCT 24.2 (L) 36.0 - 45.2 % MCV 89.6 81.5 - 97.5 fL MCH 28.1 27.0 - 34.0 pg MCHC 31.4 32.0 - 36.0 g/dL RDW 15.7 11.5 - 15.5 % PLT 314 140 - 400 K/uL MPV 10.4 6.6 - 11.1 fL nRBCs 0 <=0 /100 WBCs BASIC METABOLIC PANEL Result Value Ref Range BUN 67 (H) 6 - 20 mg/dL Creatinine 2.0 (H) 0.5 - 1.0 mg/dL Estimated Glomerular Filtration Rate 27 (L) >=60 mL/min Sodium 135 135 - 146 mmol/L Potassium 4.7 3.5 - 5.1 mmol/L Chloride 106 98 - 107 mmol/L CO2 20 (L) 22 - 32 mmol/L Anion Gap 9 7 - 15 mmol/L Glucose 114 70 - 120 mg/dL Calcium 8.6 8.4 - 10.2 mg/dL CBC Result Value Ref Range WBC 10.12 4.00 - 10.80 K/uL RBC 2.68 3.85 - 5.15 M/uL HGB 7.6 (L) 12.0 - 15.3 g/dL HCT 24.4 (L) 36.0 - 45.2 % MCV 91.0 81.5 - 97.5 fL MCH 28.4 27.0 - 34.0 pg MCHC 31.1 32.0 - 36.0 g/dL RDW 15.9 11.5 - 15.5 % PLT 315 140 - 400 K/uL MPV 10.6 6.6 - 11.1 fL nRBCs 0 <=0 /100 WBCs MAGNESIUM Result Value Ref Range Magnesium 1.5 1.5 - 2.6 mg/dL TYPE AND SCREEN Result Value Ref Range ABO A Rh Positive Red Blood Cell Antibody Screen Negative Specimen Expiration Date 08/21/2023 23:59 ABO/RH Result Value Ref Range ABO A Rh Positive BASIC METABOLIC PANEL Result Value Ref Range BUN 68 (H) 6 - 20 mg/dL Creatinine 1.9 (H) 0.5 - 1.0 mg/dL Estimated Glomerular Filtration Rate 29 (L) >=60 mL/min Sodium 135 135 - 146 mmol/L Potassium 4.5 3.5 - 5.1 mmol/L Chloride 102 98 - 107 mmol/L CO2 21 (L) 22 - 32 mmol/L Anion Gap 12 7 - 15 mmol/L Glucose 172 (H) 70 - 120 mg/dL Calcium 8.6 8.4 - 10.2 mg/dL CBC Result Value Ref Range WBC 9.32 4.00 - 10.80 K/uL RBC 2.88 3.85 - 5.15 M/uL HGB 8.3 (L) 12.0 - 15.3 g/dL HCT 25.9 (L) 36.0 - 45.2 % MCV 89.9 81.5 - 97.5 fL MCH 28.8 27.0 - 34.0 pg MCHC 32.0 32.0 - 36.0 g/dL RDW 15.5 11.5 - 15.5 % PLT 314 140 - 400 K/uL MPV 11.1 6.6 - 11.1 fL nRBCs 0 <=0 /100 WBCs BASIC METABOLIC PANEL Result Value Ref Range BUN 69 (H) 6 - 20 mg/dL Creatinine 1.9 (H) 0.5 - 1.0 mg/dL Estimated Glomerular Filtration Rate 29 (L) >=60 mL/min Sodium 134 (L) 135 - 146 mmol/L Potassium 4.4 3.5 - 5.1 mmol/L Chloride 100 98 - 107 mmol/L CO2 21 (L) 22 - 32 mmol/L Anion Gap 13 7 - 15 mmol/L Glucose 170 (H) 70 - 120 mg/dL Calcium 8.7 8.4 - 10.2 mg/dL CBC Result Value Ref Range WBC 8.89 4.00 - 10.80 K/uL RBC 2.84 3.85 - 5.15 M/uL HGB 8.1 (L) 12.0 - 15.3 g/dL HCT 25.3 (L) 36.0 - 45.2 % MCV 89.1 81.5 - 97.5 fL MCH 28.5 27.0 - 34.0 pg MCHC 32.0 32.0 - 36.0 g/dL RDW 15.5 11.5 - 15.5 % PLT 325 140 - 400 K/uL MPV 11.0 6.6 - 11.1 fL nRBCs 0 <=0 /100 WBCs RESPIRATORY PATHOGEN PANEL, PCR Result Value Ref [...] Negative Bordetella parapertussis by PCR Negative Negative BASIC METABOLIC PANEL Result Value Ref Range BUN 72 (H) 6 - 20 mg/dL Creatinine 2.0 (H) 0.5 - 1.0 mg/dL Estimated Glomerular Filtration Rate 27 (L) >=60 mL/min Sodium 134 (L) 135 - 146 mmol/L Potassium 4.3 3.5 - 5.1 mmol/L Chloride 103 98 - 107 mmol/L CO2 21 (L) 22 - 32 mmol/L Anion Gap 10 7 - 15 mmol/L Glucose 133 (H) 70 - 120 mg/dL Calcium 8.3 (L) 8.4 - 10.2 mg/dL MAGNESIUM Result Value Ref Range Magnesium 1.6 1.5 - 2.6 mg/dL CBC Result Value Ref Range WBC 8.16 4.00 - 10.80 K/uL RBC 2.60 3.85 - 5.15 M/uL HGB 7.5 (L) 12.0 - 15.3 g/dL HCT 23.6 (L) 36.0 - 45.2 % MCV 90.8 81.5 - 97.5 fL MCH 28.8 27.0 - 34.0 pg MCHC 31.8 32.0 - 36.0 g/dL RDW 15.7 11.5 - 15.5 % PLT 294 140 - 400 K/uL MPV 11.1 6.6 - 11.1 fL nRBCs 0 <=0 /100 WBCs PHOSPHORUS Result Value Ref Range Phosphorus 4.6 2.5 - 4.8 mg/dL GLUCOSE METER, POINT OF CARE Result Value Ref Range Glucose Meter 101 70 - 120 mg/dL GLUCOSE METER, POINT OF CARE Result Value Ref Range Glucose Meter 179 (H) 70 - 120 mg/dL GLUCOSE METER, POINT OF CARE Result Value Ref Range Glucose Meter 174 (H) 70 - 120 mg/dL GLUCOSE METER, POINT OF CARE Result Value Ref Range Glucose Meter 171 (H) 70 - 120 mg/dL GLUCOSE METER, POINT OF CARE Result Value Ref Range Glucose Meter 118 70 - 120 mg/dL GLUCOSE METER, POINT OF CARE Result Value Ref Range Glucose Meter 186 (H) 70 - 120 mg/dL GLUCOSE METER, POINT OF CARE Result Value Ref Range Glucose Meter 139 (H) 70 - 120 mg/dL GLUCOSE METER, POINT OF CARE Result Value Ref Range Glucose Meter 155 (H) 70 - 120 mg/dL GLUCOSE METER, POINT OF CARE Result Value Ref Range Glucose Meter 81 70 - 120 mg/dL GLUCOSE METER, POINT OF CARE Result Value Ref Range Glucose Meter 149 (H) 70 - 120 mg/dL GLUCOSE METER, POINT OF CARE Result Value Ref Range Glucose Meter 144 (H) 70 - 120 mg/dL GLUCOSE METER, POINT OF CARE Result Value Ref Range Glucose Meter 176 (H) 70 - 120 mg/dL GLUCOSE METER, POINT OF CARE Result Value Ref Range Glucose Meter 144 (H) 70 - 120 mg/dL GLUCOSE METER, POINT OF CARE Result Value Ref Range Glucose Meter 110 70 - 120 mg/dL GLUCOSE METER, POINT OF CARE Result Value Ref Range Glucose Meter 139 (H) 70 - 120 mg/dL GLUCOSE METER, POINT OF CARE Result Value Ref Range Glucose Meter 192 (H) 70 - 120 mg/dL GLUCOSE METER, POINT OF CARE Result Value Ref Range Glucose Meter 177 (H) 70 - 120 mg/dL GLUCOSE METER, POINT OF CARE Result Value Ref Range Glucose Meter 154 (H) 70 - 120 mg/dL GLUCOSE METER, POINT OF CARE Result Value Ref Range Glucose Meter 183 (H) 70 - 120 mg/dL GLUCOSE METER, POINT OF CARE Result Value Ref Range Glucose Meter 184 (H) 70 - 120 mg/dL GLUCOSE METER, POINT OF CARE Result Value Ref Range Glucose Meter 208 (H) 70 - 120 mg/dL GLUCOSE METER, POINT OF CARE Result Value Ref Range Glucose Meter 238 (H) 70 - 120 mg/dL GLUCOSE METER, POINT OF CARE Result Value Ref Range Glucose Meter 187 (H) 70 - 120 mg/dL GLUCOSE METER, POINT OF CARE Result Value Ref Range Glucose Meter 158 (H) 70 - 120 mg/dL GLUCOSE METER, POINT OF CARE Result Value Ref Range Glucose Meter 182 (H) 70 - 120 mg/dL GLUCOSE METER, POINT OF CARE Result Value Ref Range Glucose Meter 109 70 - 120 mg/dL XR CHEST 1 VIEW Final Result PROCEDURE INFORMATION: Exam: XR Chest Exam date and time: 08/19/2023 5:58 PM Age: 63 years old Clinical indication: Other: Increased cough and congestion TECHNIQUE: Imaging protocol: Radiologic exam of the chest. Views: 1 view. COMPARISON: 1. DX XR CHEST 1 VIEW 08/15/2023 3:46 AM 2. DX XR CHEST 1 VIEW 06/06/2023 12:20 PM FINDINGS: Tubes, catheters and devices: Overlying EKG leads noted. Catheter in the right arm with tip at the right axilla again partially seen. Lungs: Decreased lung volumes bilaterally secondary to incomplete inspiration. Subsegmental atelectasis versus scarring in the left lower lung zone again seen. 2.8 x 2.8 cm right suprahilar opacity again seen, present on prior examinations dating back to 06/06/23. Pleural spaces: Unremarkable. No pleural effusion. No pneumothorax. Heart/Mediastinum: Stable mild cardiomegaly. Vasculature: Aortic arch calcifications, as before. Bones/joints: Diffuse age related osteopenia and degenerative changes, as before. Soft tissues: Large amount of subcutaneous fat consistent with obesity. IMPRESSION IMPRESSION: 1. No focal infiltrates are identified. 2. 2.8 x 2.8 cm right suprahilar opacity again seen, present on prior examinations dating back to 06/06/23. The differential diagnoses include, but are not limited to, prominent azygous vein, prominent right pulmonary artery, and lymph node(s). If clinically indicated, a chest CT may be obtained for further evaluation. 3. Additional nonacute/incidental findings as described above. THIS DOCUMENT HAS BEEN ELECTRONICALLY SIGNED BY MD CYNDIE MOSER PULMONARY VENTILATION AND PERFUSION Final Result EXAM NM PULMONARY VENTILATION AND PERFUSION - 08/15/2023 1:27 pm HISTORY pos ddimer, chest pressure, recent hospitalization and surgery COMPARISON CXR dated 08/15/2023 TECHNIQUE Following the inhalation of 40.1 mCi of Tc-99m diethylenetriamine pentaacetate (DTPA), ventilation images of the chest were acquired in multiple projections. Subsequently, 6.7 mCi of Tc-99m macroaggregated albumin (MAA) was administered intravenously, and perfusion images of the chest were acquired in the same projections. FINDINGS Perfusion images demonstrate homogeneous tracer distribution. No moderate or large segmental perfusion defects. Ventilation images demonstrate relatively homogeneous tracer distribution. No areas of ventilation-perfusion (V/Q) mismatch. IMPRESSION IMPRESSION Pulmonary embolism absent. XR CHEST 1 VIEW Final Result PROCEDURE INFORMATION: Exam: XR Chest Exam date and time: 08/15/2023 3:46 AM Age: 63 years old Clinical indication: Other: Chest pain TECHNIQUE: Imaging protocol: Radiologic exam of the chest. Views: 1 view. COMPARISON: DX XR CHEST 1 VIEW 06/17/2023 6:28 PM FINDINGS: Lungs: Increased bilateral interstitial thickening with patchy bilateral lower lobe opacities. Pleural spaces: No pleural effusion. No pneumothorax. Heart/Mediastinum: Cardiomegaly, stable. Bones/joints: No acute findings. IMPRESSION IMPRESSION: Stable cardiomegaly with findings most suggestive of pulmonary edema. Differentials for the patchy opacities in the bilateral lower lobe include atelectasis and sequelae of infection. Clinical correlation suggested. THIS DOCUMENT HAS BEEN ELECTRONICALLY SIGNED BY ADAM KING MD Results Pending at Discharge: Lab Results Pending at Discharge: BASIC METABOLIC PANEL Routine CBC Routine CULTURE, URINE, QUANTITATIVE STAT MEDICATION UPDATES AT DISCHARGE START taking these medications INSTRUCTIONS DAKINS 1/2 strength (0.25%) 0.25 % Soln Start taking on: August 22, 2023 Apply topically to affected area daily. Gabapentin 100 MG Capsule Commonly known as: Neurontin Take 1 Capsule by mouth 3 times a day as needed (neuropathicpain). melatonin 3 MG Tablet Take 1 Tablet by mouth at bedtime. CHANGE how you take these medications INSTRUCTIONS * Bisacodyl 5 MG Tbec Commonly known as: Dulcolax What changed: Another medication with the same name was added. Make sure you understand how and when to take each. Take 1 Tablet by mouth daily as needed for Constipation. * Bisacodyl 10 MG suppository Commonly known as: Dulcolax What changed: You were already taking a medication with the same name, and this prescription was added. Make sure you understand how and when to take each. Administer 1 Suppository into the rectum daily as needed for Constipation. * This list has 2 medication(s) that are the same as other medications prescribed for you. Read thedirections carefully, and ask your doctor or other care provider to review them with you. CONTINUE taking these medications INSTRUCTIONS Acetaminophen 325 MG Tablet Commonly known as: Tylenol Notes to patient: Pain relief Take 2 Tablets by mouth every 6 hours as needed for Pain, Mild, Pain, Moderate or Pain, Severe. albuterol HFA 108 (90 BASE) MCG/ACT inhaler Notes to patient: For shortness of breath Inhale 2 Puffs by mouth every 6 hours as needed for Dyspnea. amitriptyline 100 MG Tablet Commonly known as: Elavil Notes to patient: For mood disorder Take 1 Tablet by mouth every night at bedtime. amLODIPine 10 MG Tablet Commonly known as: Norvasc Notes to patient: Treats high blood pressure Take 1 Tablet by mouth in the morning. Bumetanide 2 MG Tablet Notes to patient: Treats swelling and high blood pressure Take 1 Tablet by mouth in the morning. cholecalciferol (VIT D3) 10 MCG (400 UNIT) Tabs Commonly known as: Vitamin D3 Notes to patient: Supplement Take 50 Tablets by mouth in the morning. CYANOCOBALAMIN 250 MCG Tabs Commonly known as: vitamin B-12 Notes to patient: Supplement Take 1 Tablet by mouth in the morning. Ferrous Sulfate 325 (65 FE) MG Tablet Commonly known as: Feosol Notes to patient: Iron supplement Take 1 Tablet by mouth daily with breakfast. fluticasone 50 MCG/ACT nasal spray Commonly known as: Flonase Notes to patient: Treats allergic and non-allergic nasal symptoms Administer 1 Hemet into nostril in the morning. folic acid 1 MG Tablet Notes to patient: Supplement Take 1 Tablet by mouth in the morning. hydrOXYzine HCl 50 MG Tablet Notes to patient: Anxiety Take 1 Tablet by mouth every 8 hours as needed for Anxiety. insulin aspart 100 UNIT/ML injection Commonly known as: NovoLOG Glucose 80-150 (units): 0 Glucose 151-200 (units): 2 Glucose 201-250 (units): 4 Glucose 251-300 (units): 6 Glucose greater than 300 (units): 8 Insulin Glargine 100 UNIT/ML injection Commonly known as: Lantus Notes to patient: Insulin Inject 10 Units under the skin at bedtime. levothyroxine 175 MCG Tablet Commonly known as: Levoxyl Notes to patient: Thyroid med Take 1 Tablet by mouth in the morning. (at least 30 min prior to breakfast or other meds). LiquaCel Liqd Take 30 mL by mouth in the morning and 30 mL before bedtime. Lisinopril 40 MG Tablet Notes to patient: Treats high blood pressure, heart failure Take 1 Tablet by mouth in the morning. Loratadine 5 MG Tabs Commonly known as: Claritin Notes to patient: Treats allergy symptoms Take 1 Tablet by mouth in the morning. meropenem 1 G in 50 ml 1 G/50ml Commonly known as: Merrem Notes to patient: Treats bacterial infections Administer 50 mL intravenously in the morning and 50 mL at noon and 50 mL before bedtime. metOLazone 2.5 MG Tablet Commonly known as: Zaroxolyn Notes to patient: Helps get rid of excess body water Take 1 Tablet by mouth in the morning. omeprazole 20 MG Cpdr Commonly known as: PriLOSEC Notes to patient: For GERD, heartburn Take 1 Capsule by mouth daily before breakfast. ondansetron 4 MG Tablet Commonly known as: Zofran Notes to patient: For nausea Take 1 Tablet by mouth every 8 hours as needed for Nausea. Polyethylene Glycol 3350 packet Commonly known as: Miralax Take 1 Packet by mouth daily as needed for Constipation. potassium chloride ER 10 MEQ Tbcr Notes to patient: Supplement Take 2 Tablets by mouth in the morning. senna-docusate 8.6-50 MG per tablet Commonly known as: Senokot-S Take 1 Tablet by mouth 2 times a day as needed for Constipation. Simvastatin 40 MG Tablet Commonly known as: Zocor Notes to patient: Cholesterol med Take 1 Tablet by mouth in the morning. Voltaren Arthritis Pain 1 % Gel Generic drug: Diclofenac Notes to patient: Topical pain relief Apply 1 % topically to affected area 4 times a day as needed for Pain, Moderate or Pain, Severe. Apply to shoulder, affected area STOP taking these medications ceFAZolin IV (AMBULATORY) Commonly known as: Ancef Levemir 100 UNIT/ML injection Generic drug: insulin Detemir Miconazole Nitrate 2 % Powd Commonly known as: Remedy Torsemide 20 MG Tablet Commonly known as: Demadex CONTINUE taking these medications but follow up with your Primary Care Physician (PCP). INSTRUCTIONS milk of magnesia 400 MG/5ML suspension Notes to patient: Constipation Take 30 mL by mouth daily as needed for Constipation. SCHEDULED FOLLOW-UP: Future Appointments Appt Date/Time Provider Department 08/31/2023 10:20 AM Ricky Carnes MD Infectious Disease [facility] Other Information Indwelling Devices: LINES ALL Duration Midline Catheter Right;Upper Arm -- days Vital Signs (last recorded): Most Recent Systolic BP: 126 mmHg (08/21/23721) Most Recent Diastolic BP: 59 mmHg (08/21/23721) Pulse: 87 (08/21/23721) Resp: 18 (08/21/23721) Most Recent Temperature: 36.61 C (08/21/23721) Weight: 132.5 kg (292 lb) (08/21/23399) SpO2: 99 % (08/21/23721) O2 flow rate: 0.5 L/MIN (08/21/23399) Allergies: Clarithromycin, Dextromethorphan, Doxylamine, Jobrxunbw-svrxpdsfhf-gb-apap, Amoxicillin,Food (see comments), Latex, and Sulfa antibiotics Activity: as tolerated Diet: Orders Placed This Encounter Procedures Heart Healthy Consistent Carbohydrate Diet : Sodium: 2 gm --- Number of Choices: 4 (60 grams) --- Fluid Restriction (ml): None Code Status: Full Code Condition on Discharge: stable Isolation status: Droplet Cognition: normal HOSPITAL CONSULTS ORDERED: CARE MANAGEMENT CONSULT IP WOUND CONSULT IP ADULT PHYSICAL THERAPY CONSULT IP ADULT OCCUPATIONAL THERAPY CONSULT IP CARDIOLOGY CONSULT IP INFECTIOUS DISEASE CONSULT IP REFERRING PHYSICIAN: Ref: SELF[[id number]] NO STREET ADDRESS AVAILABLE None (office) None (fax) PRIMARY CARE PROVIDER: PCP: Natali Langston DO [address] [place] [address] [address] / [place] [address] (office) [phone] (fax) Note: To contact a physician responsible for this patients hospital care, please call [facility] [phone]. I spent a total of 55 minutes coordinating, documenting, and providing care for this patient excluding time spent in the performance of separately billed services. documented in this encounter Discharge Instructions * Discharge Instr - AVS* Richie Melendez DO - 08/21/2023 10:04 AM EDT Discharge Date: 08/21/23 Brief summary of inpatient care: Alexandria Smith was admitted to [facility] on 08/15/2023 with chest pain from SNF, name - Vazquez Edwards . The primary diagnosis at discharge was Principal Problem: Demand ischemia (HCC) Active Problems: Type 2 diabetes mellitus, with long-term current use of insulin (HCC) Hypertension Hypothyroid Acute on chronic heart failure with preserved ejection fraction (HFpEF) (HCC) Moderate pulmonary hypertension (HCC) Chronic kidney disease, stage IV (severe) (HCC) Morbid obesity (HCC) Atypical chest pain (HFpEF) heart failure with preserved ejection fraction (HCC) Anxiety Ambulatory dysfunction Fibromyalgia Gastroesophageal reflux disease Osteomyelitis of right foot (HCC) Elevated troponin Hyperkalemia Hyponatremia Hypoalbuminemia Bifascicular bundle branch block Alexandria Smith is being discharged to [facility]. The Hospital Medicine physician(s) at the time of discharge included: Richie Melendez DO To reach this Provider Sunday through Sunday (8:00 AM to 4:30 PM) for any questions or test results: Call [phone] For after-hours concerns: Call [phone] and have your provider paged, or the provider regional sales executive for the Department of [facility] Medicine paged. Inpatient test results pending: none Operations & Procedures: none Code Status: Full Code Advance Directive Documentation: Advance Directive Does the Patient have an Advance Directive? No Diet: Orders Placed This Encounter Procedures Heart Healthy Consistent Carbohydrate Diet : Sodium: 2 gm --- Number of Choices: 4 (60 grams) --- Fluid Restriction (ml): None Activity: As tolerated and As instructed by Physical Therapy Alexandria should continue the following therapies: Physical Therapy, Occupational Therapy, and Wound care Wound Care: Keep the wound area clean and dry. Wash your hands before changing the dressing. If you need to change the dressing or care for your wound, follow your doctors specific instructions. Ask your doctor about when it is safe to shower, bathe, or soak in clean water. Never use contaminated water or have pets near your wound. Additional Precautions: none Isolation Status: Contact/Droplet Mentation at Discharge: normal Future Studies Required: BMP: date - 1 week and CBC: date - 1 week Respiratory Support at Discharge: none PRIMARY CARE PROVIDER: PCP: Natali Langston DO [address] / [place] [address] (office) [phone] (fax) Special Instructions: End date for medications including antibiotics and anticoagulants: meropenem 1 gram q8 hours through September 11, 2023. F/U with ID on 08/30 as scheduled documented in this encounter Progress Notes * Ayana Summers MD - 08/20/2023 2:10 PM EDT Images from the original note were not included. [facility] 3B-3017/D INTERVAL HISTORY: 63 w/ DM2 insulin depedendent, HFPEF, GERD, osteo of right foot receiving outpatient IV antibiotics, mod pulm Htn here with chest pain. S/p Diuresis by cardiology Continued on outpatient IV abx regimen for right heel osteo- meropenen Subjective: Patient feels achey all over. Sore throat, cough, body aches. Non productive cough. No diarrhea. Denies pain in right heel, feels less swollen than admission. Requests to hold on discharge today as well as therapy. I tell patient I suspect she has a virus. Explained I reviewed CXR and saw no pneumonia. Objective Physical Exam Most Recent Vital Signs: BP: 174 mmHg/64 mmHg (08/20/231131) Pulse: 68 (08/20/23 113) Resp: 18 (08/20/231131) Temp: 37.28 C (08/20/231131) Temp Summary: Temp Min: 36.2 C (97.2 F) Max: 37.3 C (99.1 F) SpO2: 100 % (08/20/231131) O2 flow rate: 1 L/MIN (08/20/231131) Supplemental O2 Delivery: Nasal Cannula (06/10/24 1132) BP 174/64 | Pulse 68 | Temp 37.3 C (99.1 F) | Resp 18 | Ht 1.575 m (5' 2") | Wt 132.5 kg (292 lb) | LMP 11/22/2002 | SpO2 100% | BMI 53.41 kg/m | BSA 2.41 m Vitals reviewed over last 24 hours General: chronically ill appearing female, sleepy, but arousalable, appropriately conversant HEEN: EOMI, +rhinorrhea some erythema or posterior palate NECK: no stridor PULM: Clear anteriorly, diminished at bases, no wheezes CVS: RRR, no mumurs, cap refil<2sec ABD: soft, NT, ND +BS, no rebound, no guarding EXT: WWP, 2+peripheral edema Neuro:alert and oriented x3, CN 2-12 grossly intact, Psych: normal mood and affect Midline Catheter Right;Upper Arm (Active) Number of days: STUDIES: Encounter Orders Labs and other studies reviewed with pertinent findings noted below: Recent Results (from the past 24 hour(s)) GLUCOSE METER, POINT OF CARE Collection Time: 08/19/23 4:15 PM Result Value Ref Range Glucose Meter 184 (H) 70 - 120 mg/dL GLUCOSE METER, POINT OF CARE Collection Time: 08/19/23 9:18 PM Result Value Ref Range Glucose Meter 208 (H) 70 - 120 mg/dL BASIC METABOLIC PANEL Collection Time: 08/20/23 6:52 AM Result Value Ref Range BUN 69 (H) 6 - 20 mg/dL Creatinine 1.9 (H) 0.5 - 1.0 mg/dL Estimated Glomerular Filtration Rate 29 (L) >=60 mL/min Sodium 134 (L) 135 - 146 mmol/L Potassium 4.4 3.5 - 5.1 mmol/L Chloride 100 98 - 107 mmol/L CO2 21 (L) 22 - 32 mmol/L Anion Gap 13 7 - 15 mmol/L Glucose 170 (H) 70 - 120 mg/dL Calcium 8.7 8.4 - 10.2 mg/dL CBC Collection Time: 08/20/23 6:52 AM Result Value Ref Range WBC 8.89 4.00 - 10.80 K/uL RBC 2.84 3.85 - 5.15 M/uL HGB 8.1 (L) 12.0 - 15.3 g/dL HCT 25.3 (L) 36.0 - 45.2 % MCV 89.1 81.5 - 97.5 fL MCH 28.5 27.0 - 34.0 pg MCHC 32.0 32.0 - 36.0 g/dL RDW 15.5 11.5 - 15.5 % PLT 325 140 - 400 K/uL MPV 11.0 6.6 - 11.1 fL nRBCs 0 <=0 /100 WBCs GLUCOSE METER, POINT OF CARE Collection Time: 08/20/23 9:08 AM Result Value Ref Range Glucose Meter 238 (H) 70 - 120 mg/dL GLUCOSE METER, POINT OF CARE Collection Time: 08/20/23 11:20 AM Result Value Ref Range Glucose Meter 187 (H) 70 - 120 mg/dL RESPIRATORY PATHOGEN PANEL, PCR Collection Time: 08/20/23 11:51 AM Result Value Ref Range Adenovirus by PCR [...] Negative Bordetella parapertussis by PCR Negative Negative URINALYSIS, REFLEX TO CULTURE Collection Time: 08/20/23 12:07 PM Result Value Ref Range Color, Urine Yellow Light Yellow, Yellow, Dark Yellow Clarity, Urine Clear Clear Glucose, Urine 250 (A) Negative mg/dL Bilirubin, Urine Negative Negative Ketone, Urine Negative Negative mg/dL Specific [employer], Urine 1.018 1.003 - 1.030 Blood, Urine Moderate (A) Negative pH, Urine 6.5 5.0 - 7.5 Units Protein, Urine >=300 (A) Negative mg/dL Urobilinogen, Urine 0.2 0.2, 1.0 mg/dL Nitrite, Urine Negative Negative Esterase, Urine Negative Negative RBC, Urine 50+ (A) 0 - 2 /HPF WBC, Urine 0-2 0 - 2 /HPF Bacteria, Urine 51-100 (A) 0 - 25 /HPF Culture, Urine } Assessment and Plan IMPRESSION : Principal Problem: Demand ischemia (HCC) Active Problems: Type 2 diabetes mellitus, with long-term current use of insulin (HCC) Hypertension Hypothyroid Acute on chronic heart failure with preserved ejection fraction (HFpEF) (HCC) Moderate pulmonary hypertension (HCC) Chronic kidney disease, stage IV (severe) (HCC) Morbid obesity (HCC) Atypical chest pain (HFpEF) heart failure with preserved ejection fraction (HCC) Anxiety Ambulatory dysfunction Fibromyalgia Gastroesophageal reflux disease Osteomyelitis of right foot (HCC) Elevated troponin Hyperkalemia Hyponatremia Hypoalbuminemia Bifascicular bundle branch block Resolved Problems: * No resolved hospital problems. * DIFFERENTIAL AND PLAN: Viral syndrome - resp pcr + for rhinovirus, supportive care Chest pain with elevated troponin- c/w demand ischemia, moderate pulm htn - cards consult - monitor on telemetry Acute exacerbation of chronic diastolic heart failure with volume overload, pulm htn - diuresis - appreciate cards input - resume [employer] diuretic bumex R. Osteo- patient completed course of abx, discharged home from rehab, then was readmitted to [facility] and had second surgical debridement of calcaneal osteo and was sent BACK to rehab and placed BACK onabx - Patient admitted to on August 12 from [facility] and was to be receiving meropenem 1 gram q8 hours through September 11, 2023. - meropenem started from 6-7 - recommend resume [employer] APPRENT[employer] abx regimen per [facility] Sleepiness/drowsiness - improved - reduce gabapentin to 100mg PRN DISCHARGE TOMORROW IF STABLE - insurance authorization has been obtained. Bumetanide (Bumex) tab 2 mg albuterol-ipratropium (Duoneb) inhalation solution 3 mL Menthol (Talent) cough drop 1 Lozenge fluticasone (Flonase) nasal inhaler 2 Hemet Gabapentin (Neurontin) cap 100 mg Meropenem (Merrem) 2,000 mg in NSS 100 mL ivpb melatonin tab 3 mg Saline (Kay) nasal spray DAKINS 1/2 strength (0.25%) topical solution Acetaminophen (Tylenol) tab 650 mg albuterol (VENTOLIN HFA/PROVENTIL HFA) inhaler amitriptyline (Elavil) tab 100 mg amLODIPine (Norvasc) tab 10 mg Polyethylene Glycol 3350 (Miralax) oral powder 17 g AND senna-docusate (Senokot-S) 1 Tablet AND Bisacodyl (Dulcolax) tab 5 mg AND Bisacodyl (Dulcolax) supp 10 mg dextrose 50% inj 25 mL dextrose 50% inj 50 mL glucagon (Glucagen) inj 1 mg Glucose (Glutose 15) 40 % gel 15 g of glucose Glucose (Glutose 15) 40 % gel 30 g of glucose glucose chew tab 16 g hEParin inj 7,500 Units hydrOXYzine HCl tab 50 mg insulin aspart (NovoLOG) inj Insulin Glargine (Lantus) inj 10 Units levothyroxine (Levoxyl) tab 175 mcg LiquaCel Lisinopril (Prinivil) tab 40 mg omeprazole (PriLOSEC) cap 20 mg ondansetron (Zofran) inj 4 mg Simvastatin (Zocor) tab 40 mg sodium chloride 0.9 % flush/inj 3 mL Orders Placed This Encounter Procedures Heart Healthy Consistent Carbohydrate Diet : Sodium: 2 gm --- Number of Choices: 4 (60 grams) --- Fluid Restriction (ml): None PHARMACOLOGIC VTE PROPHYLAXIS: hEParin CODE STATUS: Full Code EXPECTED DISCHARGE DATE: 08/21/2023 I spent a total of 55 minutes coordinating, documenting, and providing care for this patient excluding time spent in the performance of separately billed services. * Richie Melendez DO - 08/19/2023 4:16 PM EDT Images from the original note were not included. [facility] 3B-3017/D [facility] HOSPITAL MEDICINE NOTE Summary Statement: Admission for CP and acute on chronic HFpEF. PMHX significant for DM2 insulin depedendent, HFPEF, GERD, osteo of right foot receiving outpatient IV antibiotics(meropenem for 6 weeks from 08/01) and mod pulm HTN INTERVAL HISTORY: Chart, data and vital signs reviewed. Current medication list reviewed. Patient seen with nursing. Overall feels better. Has chest congestion. " More like bronchitis". Some sputum and wheezing. ROS: The patient denies CP, rest SOB, Orthopnea, Nausea, Emesis, Diarrhea, VENEGAS or chills.Dysuria or hematuria As per HPI and all other systems reviewed and are negative or noncontributory. albuterol-ipratropium (Duoneb) inhalation solution 3 mL Menthol (Talent) cough drop 1 Lozenge fluticasone (Flonase) nasal inhaler 2 Hemet Gabapentin (Neurontin) cap 100 mg Meropenem (Merrem) 2,000 mg in NSS 100 mL ivpb melatonin tab 3 mg Saline (Kay) nasal spray DAKINS 1/2 strength (0.25%) topical solution Furosemide (Lasix) inj 100 mg Acetaminophen (Tylenol) tab 650 mg albuterol (VENTOLIN HFA/PROVENTIL HFA) inhaler amitriptyline (Elavil) tab 100 mg amLODIPine (Norvasc) tab 10 mg Polyethylene Glycol 3350 (Miralax) oral powder 17 g AND senna-docusate (Senokot-S) 1 Tablet AND Bisacodyl (Dulcolax) tab 5 mg AND Bisacodyl (Dulcolax) supp 10 mg dextrose 50% inj 25 mL dextrose 50% inj 50 mL glucagon (Glucagen) inj 1 mg Glucose (Glutose 15) 40 % gel 15 g of glucose Glucose (Glutose 15) 40 % gel 30 g of glucose glucose chew tab 16 g hEParin inj 7,500 Units hydrOXYzine HCl tab 50 mg insulin aspart (NovoLOG) inj Insulin Glargine (Lantus) inj 10 Units levothyroxine (Levoxyl) tab 175 mcg LiquaCel Lisinopril (Prinivil) tab 40 mg omeprazole (PriLOSEC) cap 20 mg ondansetron (Zofran) inj 4 mg Simvastatin (Zocor) tab 40 mg sodium chloride 0.9 % flush/inj 3 mL Objective Physical Exam Most Recent Vital Signs: BP: 144 mmHg/54 mmHg (08/19/23 1450) Pulse: 63 (08/19/23 1450) Resp: 21 (08/19/23 1450) Temp: 36.22 C (08/19/23 1450) Temp Summary: Temp Min: 36.2 C (97.2 F) Max: 36.7 C (98.1 F) SpO2: 100 % (08/19/231451) O2 flow rate: 1 L/MIN (08/19/231451) Supplemental O2 Delivery: Nasal Cannula (08/19/231451) Intake/Output Summary (Last 24 hours) at 08/19/2023 1616 Last data filed at 08/19/2023 1514 Gross per 24 hour Intake 671.25 ml Output 1600 ml Net -928.75 ml Wt Readings from Last 3 Encounters: 08/19/23 132.1 kg (291 lb 4.8 oz) 06/25/23 134 kg (295 lb 6.4 oz) 06/13/23 (!) 148.6 kg (327 lb 8 oz) General: alert, oriented x 3 Eyes: PERRLA, EOMI. Conjunctiva are pink and non-injected. Oropharynx: no exudate, no erythema; membranes are moist Neck: supple, no adenopathy, no JVD Lungs: scattered wheezing and rhonchi. Heart: RRR. No gallops. Abdomen: abdomen soft, non-tender, normal active bowel sounds. Extremities:1+ edema Neuro exam: No gross focal deficits Skin: warm, dry Midline Catheter Right;Upper Arm (Active) Number of days: STUDIES: Lab results within last 7 days (see chart for full results) Units 08/19/23 0646 08/18/23 0637 08/17/23 0618 Sodium mmol/L 135 135 137 Potassium mmol/L 4.5 4.7 4.8 Chloride mmol/L 102 106 105 CO2 mmol/L 21* 20* 20* BUN mg/dL 68* 67* 62* Creatinine mg/dL 1.9* 2.0* 2.0* Lab results within last 7 days (see chart for full results) Units 08/19/23 0646 08/18/23 0637 08/17/23 0618 HGB g/dL 8.3* 7.6* 7.6* HCT % 25.9* 24.4* 24.2* WBC K/uL 9.32 10.12 9.34 PLT K/uL 314 315 314 Recent Cultures (2 Weeks) No lab values to display. Assessment and Plan IMPRESSION : Principal Problem: Demand ischemia (HCC) Active Problems: Type 2 diabetes mellitus, with long-term current use of insulin (HCC) Hypertension Hypothyroid Acute on chronic heart failure with preserved ejection fraction (HFpEF) (HCC) Moderate pulmonary hypertension (HCC) Chronic kidney disease, stage IV (severe) (HCC) Morbid obesity (HCC) Atypical chest pain (HFpEF) heart failure with preserved ejection fraction (HCC) Anxiety Ambulatory dysfunction Fibromyalgia Gastroesophageal reflux disease Osteomyelitis of right foot (HCC) Elevated troponin Hyperkalemia Hyponatremia Hypoalbuminemia Bifascicular bundle branch block Resolved Problems: * No resolved hospital problems. * DIFFERENTIAL AND PLAN: Continue IV meropenem for osteo. ID consulted. IV lasix discontinued by Cards Flutter Duoneb treatments Recheck CXR Trend labs Maintain oxygen saturation above 90%. On 1 liter. Wean as tolerated PT and OT consults CM Consult Cardiology, Wound team consulted Continue outpatient medications Orders Placed This Encounter Procedures Heart Healthy Consistent Carbohydrate Diet : Sodium: 2 gm --- Number of Choices: 4 (60 grams) --- Fluid Restriction (ml): None A total of 50 minutes was spent providing care for this patient on the unit/floor. More than half of the time was spent counseling and coordinating care for the patient. Parson elements of the counseling and coordination of care included detail of treatment plan w/ pt and caregivers,content of pt and/or family discussions,parson tests or procedures reviewed/ordered in med rec, outcomes of discussions with other healthcare providers This chart was completed in part utilizing [employer] Speech Voice Recognition Software. Grammatical errors, random [...] for this patients hospital care, please call [facility] [phone]. PHARMACOLOGIC VTE PROPHYLAXIS: hEParin CODE STATUS: Full Code EXPECTED DISCHARGE DATE: 08/20/2023 * Nan Conway MD - 08/18/2023 11:42 AM EDT PROGRESS NOTE - Cardiology [address] [id number] Name: Alexandria Smith Location: [facility] 3B-3017/D Date: 08/18/2023 Time: 11:42 AM SUBJECTIVE: Alexandria has been feeling better no further chest pain Does have anxiety and states her chest pain is worse during these episodes REVIEW OF SYSTEMS: Constitutional: (+) fatigue Cardiovascular: (+) exertional dyspnea Pulmonary: (+) dyspnea and (+) dyspnea with exertion Abdominal/GI: (-) abdominal pain Patient Active Problem List Diagnosis Type 2 diabetes mellitus, with long-term current use of insulin (HCC) Hypertension Hypothyroid Acute on chronic heart failure [...] of right foot (HCC) Iron deficiency anemia Unstable angina (HCC) Elevated troponin Demand ischemia (HCC) Hyperkalemia Hyponatremia Hypoalbuminemia Bifascicular bundle branch block Principal Problem: Unstable angina (HCC) (POA: Unknown) Active Problems: Type 2 diabetes mellitus, with long-term current use of insulin (HCC) (POA: Yes) Overview: ICD-10 update of inactive term Hypertension (POA: Yes) Hypothyroid (POA: Yes) Acute on chronic heart failure with preserved ejection fraction (HFpEF) (HCC) (POA: Yes) Moderate pulmonary hypertension (HCC) (POA: Yes) Chronic kidney disease, stage IV (severe) (HCC) (POA: Yes) Morbid obesity (HCC) (POA: Yes) Atypical chest pain (POA: Yes) (HFpEF) heart failure with preserved ejection fraction (HCC) (POA: Yes) Anxiety (POA: Yes) Ambulatory dysfunction (POA: Yes) Fibromyalgia (POA: Yes) Gastroesophageal reflux disease (POA: Yes) Osteomyelitis of right foot (HCC) (POA: Yes) Elevated troponin (POA: Unknown) Demand ischemia (HCC) (POA: Unknown) Hyperkalemia (POA: Unknown) Hyponatremia (POA: Unknown) Hypoalbuminemia (POA: Unknown) Bifascicular bundle branch block (POA: Unknown) POA = Present On Admission Current Facility-Administered Medications Medication Dose Route Frequency Provider Gabapentin (Neurontin) cap 100 mg 100 mg Oral TID PRN Ayana Summers MD melatonin tab 3 mg 3 mg Oral HS Ayana Summers MD meropenem in NSS (Merrem) ivpb 500 mg 500 mg IV Piggyback Q8H Now Ayana Summers MD Saline (Kay) nasal spray 1 Hemet Nasal PRN Ayana Summers MD DAKINS 1/2 strength (0.25%) topical solution Topical Daily(AM) Ayana Summers MD Furosemide (Lasix) inj 100 mg 100 mg IV Push BID (0900,1600) Ayana Summers MD Acetaminophen (Tylenol) tab 650 mg 650 mg [...] Oral Daily PRN Alan Lozano PA-C And senna-docusate (Senokot-S) 1 Tablet 1 Tablet Oral BID PRN Alan Lozano PA-C And Bisacodyl (Dulcolax) tab 5 mg 5 mg Oral Daily PRN Alan Lozano PA-C And Bisacodyl (Dulcolax) supp 10 mg 10 mg Rectal Daily PRN Alan Lozano PA-C dextrose 50% inj 25 mL 25 mL IV Push PRN Alan Lozano PA-C dextrose 50% inj 50 mL 50 mL IV Push PRN Alan Lozano PA-C glucagon (Glucagen) inj [...] inj 7,500 Units 7,500 Units Subcutaneous Q8H CookCandace, [facility] hydrOXYzine HCl tab 50 mg 50 mg Oral Q8H PRN Alan Lozano PA-C insulin aspart (NovoLOG) inj Subcutaneous With Meals and HS Alan Lozano PA-C Insulin Glargine (Lantus) inj 10 Units 10 Units Subcutaneous HS Alan Lozano PA-C levothyroxine (Levoxyl) tab 175 mcg 175 mcg Oral at 0630 Alan Lozano PA-C LiquaCel 30 mL Oral BID(AM/PM) Alan Lozano PA-C Lisinopril (Prinivil) tab 40 mg 40 mg Oral Daily(AM) Alan Lozano PA-C omeprazole (PriLOSEC) cap 20 mg 20 mg Oral Before breakfast Alan Lozano PA-C ondansetron (Zofran) inj 4 mg 4 mg IV Push Q6H PRN Alan Lozano PA-C Simvastatin (Zocor) tab 40 mg 40 mg Oral Daily(AM) Alan Lozano PA-C sodium chloride 0.9 % flush/inj 3 mL 3 mL IV Push PRN Alan Lozano PA-C OBJECTIVE: Most Recent Vital Signs: BP: 144 mmHg/57 mmHg (08/18/23713) Pulse: 60 (08/18/23 08) Resp: 18 (08/18/23713) Temp: 36.5 C (08/18/23713) Temp Summary: Temp Min: 36.4 C (97.5 F) Max: 37 C (98.6 F) SpO2: 98 % (08/18/23713) O2 flow rate: 2 L/MIN (08/18/23713) Supplemental O2 Delivery: Nasal Cannula (08/18/23713) Vital Signs Last 24 Hours: Systolic BP: @SBPMAXR(24)@Temperature: Temp Av.6 C (97.9 F) Min: 36.4 C (97.5 F) Max: 37 C (98.6 F) Pulse: Pulse Av Min: 59 Max: 64 Respirations: Resp Av Min: 18 Max: 18 SpO2: SpO2 Av % Min: 98 % Max: 100 % Intake/Output Summary (Last 24 hours) at 08/18/2023 1142 Last data filed at 08/18/2023 0800 Gross per 24 hour Intake 1009.89 ml Output 500 ml Net 509.89 ml Physical Examination: Constitutional: no acute distress Neck: JVP normal CV: normal rate, normal rhythm, no gallop, no rub Chest: normal respiratory effort, (+) decreased breath sounds bibasilar lung field(s) Abdomen: soft LABS: Latest Reference Range & Units 08/17/23 06:18 08/18/23 06:37 Sodium 135 - 146 mmol/L 137 135 Potassium 3.5 - 5.1 mmol/L 4.8 4.7 Chloride 98 - 107 mmol/L 105 106 CO2 22 - 32 mmol/L 20 (L) 20 (L) BUN 6 - 20 mg/dL 62 (H) 67 (H) Creatinine 0.5 - 1.0 mg/dL 2.0 (H) 2.0 (H) Estimated Glomerular Filtration Rate >=60 mL/min 28 (L) 27 (L) Anion Gap 7 - 15 mmol/L 12 9 Glucose 70 - 120 mg/dL 94 114 Calcium 8.4 - 10.2 mg/dL 8.6 8.6 Magnesium 1.5 - 2.6 mg/dL 1.6 1.5 (L): Data is abnormally low (H): Data is abnormally high IMPRESSION: Acute on chronic heart for failure with preserved ejection fraction Moderate pulmonary hypertension History of junctional rhythm Morbid obesity Chronic kidney disease Chronic right heel wound Chest pain atypical in secondary to heart failure Elevated troponins setting of chronic kidney disease Anemia PLAN: Has been diuresing weight is down from 304 lb to 289 Patient received metolazone on 08/16 08/17 with underlying chronic kidney disease metolazone sometimes take 24-48 hours for its effect. Can back off on IV Lasix Monitor potassium for hypokalemia Please call with questions will sign off Case discussed with team and care coordinated. * Ayana Summers MD - 08/18/2023 8:26 AM EDT Images from the original note were not included. [facility] 3B-3017/D INTERVAL HISTORY: 63 w/ DM2 insulin depedendent, HFPEF, GERD, osteo of right foot receiving outpatient IV antibiotics, mod pulm Htn here with chest pain. Last 24 hours: Diuresis on 08/16 - metolazone 5mg - Lasix 100mg IV BID - Discussed with cardiology very difficult to diurese and determine volume status - continue one more day and likely will transition to oral 2. Osteo of right foot - IV abx restarted 04/13 to ID consult - see note for details. Subjective: Patient is very sleepy today. Arousable to voice. She thinks its from the gabapentin dose she took last night. Gabapentin some help her right hand neuropathy significantly. Will dose reduce. Patient denies fevers, chills, chest pain. Suture are to be removed on her foot today. Objective Physical Exam Most Recent Vital Signs: BP: 144 mmHg/57 mmHg (08/18/23713) Pulse: 59 (08/18/23713) Resp: 18 (08/18/23713) Temp: 36.5 C (08/18/23713) Temp Summary: Temp Min: 36.4 C (97.5 F) Max: 37 C (98.6 F) SpO2: 98 % (08/18/23713) O2 flow rate: 2 L/MIN (08/18/23713) Supplemental O2 Delivery: Nasal Cannula (08/18/23713) BP 144/57 | Pulse 59 | Temp 36.5 C (97.7 F) (Temporal Artery) | Resp 18 | Ht 1.575 m (5' 2") | Wt 131.5 kg (289 lb 12.8 oz) | LMP 11/22/2002 | SpO2 98% | BMI 53.01 kg/m | BSA 2.4 m Vitals reviewed over last 24 hours General: chronically ill appearing female, sleepy, but arousalable, appropriately conversant HEEN: EOMI, no scleral icterus, ophx clear NECK: no stridor PULM: Clear anteriorly, diminished at bases CVS: RRR, no mumurs, cap refil<2sec ABD: soft, NT, ND +BS, no rebound, no guarding EXT: WWP, 2+peripheral edema Neuro:alert and oriented x3, CN 2-12 grossly intact, Psych: normal mood and affect Midline Catheter Right;Upper Arm (Active) Number of days: STUDIES: Encounter Orders Labs and other studies reviewed with pertinent findings noted below: Recent Results (from the past 24 hour(s)) GLUCOSE METER, POINT OF CARE Collection Time: 08/17/23 11:27 AM Result Value Ref Range Glucose Meter 149 (H) 70 - 120 mg/dL GLUCOSE METER, POINT OF CARE Collection Time: 08/17/23 12:25 PM Result Value Ref Range Glucose Meter 144 (H) 70 - 120 mg/dL GLUCOSE METER, POINT OF CARE Collection Time: 08/17/23 4:28 PM Result Value Ref Range Glucose Meter 176 (H) 70 - 120 mg/dL GLUCOSE METER, POINT OF CARE Collection Time: 08/17/23 9:16 PM Result Value Ref Range Glucose Meter 144 (H) 70 - 120 mg/dL BASIC METABOLIC PANEL Collection Time: 08/18/23 6:37 AM Result Value Ref Range BUN 67 (H) 6 - 20 mg/dL Creatinine 2.0 (H) 0.5 - 1.0 mg/dL Estimated Glomerular Filtration Rate 27 (L) >=60 mL/min Sodium 135 135 - 146 mmol/L Potassium 4.7 3.5 - 5.1 mmol/L Chloride 106 98 - 107 mmol/L CO2 20 (L) 22 - 32 mmol/L Anion Gap 9 7 - 15 mmol/L Glucose 114 70 - 120 mg/dL Calcium 8.6 8.4 - 10.2 mg/dL CBC Collection Time: 08/18/23 6:37 AM Result Value Ref Range WBC 10.12 4.00 - 10.80 K/uL RBC 2.68 3.85 - 5.15 M/uL HGB 7.6 (L) 12.0 - 15.3 g/dL HCT 24.4 (L) 36.0 - 45.2 % MCV 91.0 81.5 - 97.5 fL MCH 28.4 27.0 - 34.0 pg MCHC 31.1 32.0 - 36.0 g/dL RDW 15.9 11.5 - 15.5 % PLT 315 140 - 400 K/uL MPV 10.6 6.6 - 11.1 fL nRBCs 0 <=0 /100 WBCs MAGNESIUM Collection Time: 08/18/23 6:37 AM Result Value Ref Range Magnesium 1.5 1.5 - 2.6 mg/dL TYPE AND SCREEN Collection Time: 08/18/23 6:37 AM Result Value Ref Range ABO A Rh Positive Red Blood Cell Antibody Screen Negative Specimen Expiration Date 08/21/2023 23:59 ABO/RH Collection Time: 08/18/23 6:37 AM Result Value Ref Range ABO A Rh Positive GLUCOSE METER, POINT OF CARE Collection Time: 08/18/23 7:19 AM Result Value Ref Range Glucose Meter 110 70 - 120 mg/dL } Assessment and Plan IMPRESSION : Principal Problem: Unstable angina (HCC) Active Problems: Type 2 diabetes mellitus, with long-term current use of insulin (HCC) Hypertension Hypothyroid Acute on chronic heart failure with preserved ejection fraction (HFpEF) (HCC) Moderate pulmonary hypertension (HCC) Chronic kidney disease, stage IV (severe) (HCC) Morbid obesity (HCC) Atypical chest pain (HFpEF) heart failure with preserved ejection fraction (HCC) Anxiety Ambulatory dysfunction Fibromyalgia Gastroesophageal reflux disease Osteomyelitis of right foot (HCC) Elevated troponin Demand ischemia (HCC) Hyperkalemia Hyponatremia Hypoalbuminemia Bifascicular bundle branch block Resolved Problems: * No resolved hospital problems. * DIFFERENTIAL AND PLAN: Chest pain with elevated troponin- c/w demand ischemia, moderate pulm htn - cards consult - monitor on telemetry Acute exacerbation of chronic diastolic heart failure with volume overload, pulm htn - diuresis- add metolazone (day 2) - plan transition to oral tomorrow - follow up cards recs R. Osteo- patient completed course of abx, discharged home from rehab, then was readmitted to [facility] and had second surgical debridement of calcaneal osteo and was sent BACK to rehab and placed BACK onabx - Patient admitted to on August 12 from [facility] and was to be receiving meropenem 1 gram q8 hours through September 11, 2023. - meropenem started from - - recommend resume [employer] abx regimen per [facility] Sleepiness/drowsiness - improved - reduce gabapentin to 100mg PRN Other home medications as directed. Gabapentin (Neurontin) cap 100 mg melatonin tab 3 mg meropenem in NSS (Merrem) ivpb 500 mg Saline (Kay) nasal spray DAKINS 1/2 strength (0.25%) topical solution Furosemide (Lasix) inj 100 mg Acetaminophen (Tylenol) tab 650 mg albuterol (VENTOLIN HFA/PROVENTIL HFA) inhaler amitriptyline (Elavil) tab 100 mg amLODIPine (Norvasc) tab 10 mg Polyethylene Glycol 3350 (Miralax) oral powder 17 g AND senna-docusate (Senokot-S) 1 Tablet AND Bisacodyl (Dulcolax) tab 5 mg AND Bisacodyl (Dulcolax) supp 10 mg dextrose 50% inj 25 mL dextrose 50% inj 50 mL glucagon (Glucagen) inj 1 mg Glucose (Glutose 15) 40 % gel 15 g of glucose Glucose (Glutose 15) 40 % gel 30 g of glucose glucose chew tab 16 g hEParin inj 7,500 Units hydrOXYzine HCl tab 50 mg insulin aspart (NovoLOG) inj Insulin Glargine (Lantus) inj 10 Units levothyroxine (Levoxyl) tab 175 mcg LiquaCel Lisinopril (Prinivil) tab 40 mg omeprazole (PriLOSEC) cap 20 mg ondansetron (Zofran) inj 4 mg Simvastatin (Zocor) tab 40 mg sodium chloride 0.9 % flush/inj 3 mL Orders Placed This Encounter Procedures Heart Healthy Consistent Carbohydrate Diet : Sodium: 2 gm --- Number of Choices: 4 (60 grams) --- Fluid Restriction (ml): None PHARMACOLOGIC VTE PROPHYLAXIS: hEParin CODE STATUS: Full Code EXPECTED DISCHARGE DATE: 08/19/2023 I spent a total of 55 minutes coordinating, documenting, and providing care for this patient excluding time spent in the performance of separately billed services. * Ayana Summers MD - 08/17/2023 8:21 AM EDT Images from the original note were not included. [facility] 3B-3017/D INTERVAL HISTORY: 63 w/ DM2 insulin depedendent, HFPEF, GERD, osteo of right foot receiving outpatient IV antibiotics, mod pulm Htn here with chest pain. Started on diuresis by cards yesterday Intake/Output Summary (Last 24 hours) at 08/17/2023 0821 Last data filed at 08/17/2023 0648 Gross per 24 hour Intake 320 ml Output 800 ml Net -480 ml [id number]? - torsemide 80mg in AM and lasix 100mg in PM -Today will add metolazone 5mg - Lasix 100mg IV BID Subjective She expresses no concern regarding her right foot osteo- no fever, chills, drainage, increased pain. She did say she barely urinated yesterday. Objective Physical Exam Most Recent Vital Signs: BP: 156 mmHg/62 mmHg (08/17/23733) Pulse: 63 (08/17/23 08) Resp: 20 (08/17/23733) Temp: 36.28 C (08/17/23733) Temp Summary: Temp Min: 36.3 C (97.3 F) Max: 36.8 C (98.2 F) SpO2: 100 % (08/17/23733) O2 flow rate: 2 L/MIN (08/17/23733) Supplemental O2 Delivery: Nasal Cannula (08/17/23733) BP 156/62 | Pulse 63 | Temp 36.3 C (97.3 F) (Temporal Artery) | Resp 20 | Ht 1.575 m (5' 2") | Wt 132.2 kg (291 lb 6.4 oz) | LMP 11/22/2002 | SpO2 100% | BMI 53.30 kg/m | BSA 2.4 m Vitals reviewed over last 24 hours General: chronically ill appearing female HEEN: EOMI, no scleral icterus, ophx clear NECK: no stridor PULM: Clear anteriorly, diminished at bases CVS: RRR, no mumurs, cap refil<2sec ABD: soft, NT, ND +BS, no rebound, no guarding EXT: WWP, 1=-2+peripheral edema Neuro:alert and oriented x3, CN 2-12 grossly intact, Psych: normal mood and affect Midline Catheter Right;Upper Arm (Active) Number of days: STUDIES: Encounter Orders Labs and other studies reviewed with pertinent findings noted below: Recent Results (from the past 24 hour(s)) GLUCOSE METER, POINT OF CARE Collection Time: 08/16/23 11:48 AM Result Value Ref Range Glucose Meter 186 (H) 70 - 120 mg/dL GLUCOSE METER, POINT OF CARE Collection Time: 08/16/23 4:53 PM Result Value Ref Range Glucose Meter 139 (H) 70 - 120 mg/dL GLUCOSE METER, POINT OF CARE Collection Time: 08/16/23 9:11 PM Result Value Ref Range Glucose Meter 155 (H) 70 - 120 mg/dL BASIC METABOLIC PANEL Collection Time: 08/17/23 6:18 AM Result Value Ref Range BUN 62 (H) 6 - 20 mg/dL Creatinine 2.0 (H) 0.5 - 1.0 mg/dL Estimated Glomerular Filtration Rate 28 (L) >=60 mL/min Sodium 137 135 - 146 mmol/L Potassium 4.8 3.5 - 5.1 mmol/L Chloride 105 98 - 107 mmol/L CO2 20 (L) 22 - 32 mmol/L Anion Gap 12 7 - 15 mmol/L Glucose 94 70 - 120 mg/dL Calcium 8.6 8.4 - 10.2 mg/dL MAGNESIUM Collection Time: 08/17/23 6:18 AM Result Value Ref Range Magnesium 1.6 1.5 - 2.6 mg/dL CBC Collection Time: 08/17/23 6:18 AM Result Value Ref Range WBC 9.34 4.00 - 10.80 K/uL RBC 2.70 3.85 - 5.15 M/uL HGB 7.6 (L) 12.0 - 15.3 g/dL HCT 24.2 (L) 36.0 - 45.2 % MCV 89.6 81.5 - 97.5 fL MCH 28.1 27.0 - 34.0 pg MCHC 31.4 32.0 - 36.0 g/dL RDW 15.7 11.5 - 15.5 % PLT 314 140 - 400 K/uL MPV 10.4 6.6 - 11.1 fL nRBCs 0 <=0 /100 WBCs } Assessment and Plan IMPRESSION : Principal Problem: Unstable angina (HCC) Active Problems: Type 2 diabetes mellitus, with long-term current use of insulin (HCC) Hypertension Hypothyroid Acute on chronic heart failure with preserved ejection fraction (HFpEF) (HCC) Moderate pulmonary hypertension (HCC) Chronic kidney disease, stage IV (severe) ([facility]) Morbid obesity (HCC) Atypical chest pain (HFpEF) heart failure with preserved ejection fraction (HCC) Anxiety Ambulatory dysfunction Fibromyalgia Gastroesophageal reflux disease Osteomyelitis of right foot ([facility]) Elevated troponin Demand ischemia (HCC) Hyperkalemia Hyponatremia Hypoalbuminemia Bifascicular bundle branch block Resolved Problems: * No resolved hospital problems. * DIFFERENTIAL AND PLAN: Chest pain with elevated troponin- c/w demand ischemia - cards consult - monitor on telemetry Acute exacerbation of chronic diastolic heart failure with volume overload - diuresis- add metolazone - follow up cards recs R. Osteo - ID consult - starting meropenem Other home medications as directed. DAKINS 1/2 strength (0.25%) topical solution Furosemide (Lasix) inj 100 mg Acetaminophen (Tylenol) tab 650 mg albuterol (VENTOLIN HFA/PROVENTIL HFA) inhaler amitriptyline (Elavil) tab 100 mg amLODIPine (Norvasc) tab 10 mg Polyethylene Glycol 3350 (Miralax) oral powder 17 g AND senna-docusate (Senokot-S) 1 Tablet AND [START ON 08/18/2023] Bisacodyl (Dulcolax) tab 5 mg AND [START ON 08/18/2023] Bisacodyl (Dulcolax) supp 10 mg dextrose 50% inj 25 mL dextrose 50% inj 50 mL glucagon (Glucagen) inj 1 mg Glucose (Glutose 15) 40 % gel 15 g of glucose Glucose (Glutose 15) 40 % gel 30 g of glucose glucose chew tab 16 g hEParin inj 7,500 Units hydrOXYzine HCl tab 50 mg insulin aspart (NovoLOG) inj Insulin Glargine (Lantus) inj 10 Units levothyroxine (Levoxyl) tab 175 mcg LiquaCel Lisinopril (Prinivil) tab 40 mg melatonin tab 3 mg omeprazole (PriLOSEC) cap 20 mg ondansetron (Zofran) inj 4 mg Simvastatin (Zocor) tab 40 mg sodium chloride 0.9 % flush/inj 3 mL Orders Placed This Encounter Procedures Heart Healthy Consistent Carbohydrate Diet : Sodium: 2 gm --- Number of Choices: 4 (60 grams) --- Fluid Restriction (ml): None PHARMACOLOGIC VTE PROPHYLAXIS: hEParin CODE STATUS: Full Code EXPECTED DISCHARGE DATE: 08/18/2023 I spent a total of 45 minutes coordinating, documenting, and providing care for this patient excluding time spent in the performance of separately billed services. * Ayana Summers MD - 08/16/2023 4:34 PM EDT Images from the original note were not included. [facility] 3B-3017/D INTERVAL HISTORY: 63 w/ DM2 insulin depedendent, HFPEF, GERD, osteo of right foot receiving outpatient IV antibiotics, mod pulm Htn here with chest pain. Elevated troponins. Subjective - Patient reports chest pain has resolved, felt like an elephant was sitting on her chest and heaviness occurred at rest. - Jb paste relieved it. She expresses no concern regarding her right foot osteo- no fever, chills, drainage, increased pain Objective Physical Exam Most Recent Vital Signs: BP: 180 mmHg/65 mmHg (08/16/231530) Pulse: 63 (08/16/231530) Resp: 18 (08/16/231530) Temp: 36.61 C (08/16/231530) Temp Summary: Temp Min: 36 C (96.8 F) Max: 36.9 C (98.4 F) SpO2: 100 % (08/16/231530) O2 flow rate: 2 L/MIN (08/16/231530) Supplemental O2 Delivery: Nasal Cannula (08/16/231530) BP 180/65 Comment: rn aware | Pulse 63 | Temp 36.6 C (97.9 F) (Temporal Artery) | Resp 18 | Ht 1.575 m (5' 2") | Wt 133.3 kg (293 lb 14 oz) | LMP 11/22/2002 | SpO2 100% | BMI 53.75 kg/m | BSA 2.41 m Vitals reviewed over last 24 hours General: chronically ill appearing female HEEN: EOMI, no scleral icterus, ophx clear NECK: no stridor PULM: Clear anteriorly, diminished at bases CVS: RRR, no mumurs, cap refil<2sec ABD: soft, NT, ND +BS, no rebound, no guarding EXT: WWP, 1=-2+peripheral edema Neuro:alert and oriented x3, CN 2-12 grossly intact, Psych: normal mood and affect Midline Catheter Right;Upper Arm (Active) Number of days: STUDIES: Encounter Orders Labs and other studies reviewed with pertinent findings noted below: Recent Results (from the past 24 hour(s)) GLUCOSE METER, POINT OF CARE Collection Time: 08/15/23 4:43 PM Result Value Ref Range Glucose Meter 174 (H) 70 - 120 mg/dL GLUCOSE METER, POINT OF CARE Collection Time: 08/15/23 9:33 PM Result Value Ref Range Glucose Meter 171 (H) 70 - 120 mg/dL TROPONIN T, HIGH SENSITIVITY Collection Time: 08/16/23 5:58 AM Result Value Ref Range Troponin T, High Sensitivity 151 (HH) <=14 ng/L CBC Collection Time: 08/16/23 5:58 AM Result Value Ref Range WBC 9.14 4.00 - 10.80 K/uL RBC 3.14 3.85 - 5.15 M/uL HGB 8.7 (L) 12.0 - 15.3 g/dL HCT 28.2 (L) 36.0 - 45.2 % MCV 89.8 81.5 - 97.5 fL MCH 27.7 27.0 - 34.0 pg MCHC 30.9 32.0 - 36.0 g/dL RDW 15.8 11.5 - 15.5 % PLT 357 140 - 400 K/uL MPV 10.6 6.6 - 11.1 fL nRBCs 0 <=0 /100 WBCs BASIC METABOLIC PANEL Collection Time: 08/16/23 5:58 AM Result Value Ref Range BUN 62 (H) 6 - 20 mg/dL Creatinine 2.1 (H) 0.5 - 1.0 mg/dL Estimated Glomerular Filtration Rate 27 (L) >=60 mL/min Sodium 136 135 - 146 mmol/L Potassium 5.4 (H) 3.5 - 5.1 mmol/L Chloride 105 98 - 107 mmol/L CO2 19 (L) 22 - 32 mmol/L Anion Gap 12 7 - 15 mmol/L Glucose 114 70 - 120 mg/dL Calcium 8.7 8.4 - 10.2 mg/dL ERYTHROCYTE SEDIMENTATION RATE (ESR) Collection Time: 08/16/23 5:58 AM Result Value Ref Range ESR 77 (H) <30 mm/hour CRP (INFLAMMATORY MARKER) Collection Time: 08/16/23 5:58 AM Result Value Ref Range CRP (Inflammatory Marker) 17 (H) <=5 mg/L GLUCOSE METER, POINT OF CARE Collection Time: 08/16/23 8:03 AM Result Value Ref Range Glucose Meter 118 70 - 120 mg/dL GLUCOSE METER, POINT OF CARE Collection Time: 08/16/23 11:48 AM Result Value Ref Range Glucose Meter 186 (H) 70 - 120 mg/dL } Assessment and Plan IMPRESSION : Principal Problem: Unstable angina ([facility]) Active Problems: Type 2 diabetes mellitus, with long-term current use of insulin ([facility]) Hypertension Hypothyroid Acute on chronic heart failure with preserved ejection fraction (HFpEF) ([facility]) Moderate pulmonary hypertension ([facility]) Chronic kidney disease, stage IV (severe) ([facility]) Morbid obesity ([facility]) Atypical chest pain (HFpEF) heart failure with preserved ejection fraction ([facility]) Anxiety Ambulatory dysfunction Fibromyalgia Gastroesophageal reflux disease Osteomyelitis of right foot ([facility]) Elevated troponin Demand ischemia ([facility]) Hyperkalemia Hyponatremia Hypoalbuminemia Bifascicular bundle branch block Resolved Problems: * No resolved hospital problems. * DIFFERENTIAL AND PLAN: Chest pain with elevated troponin- c/w demand ischemia - cards consult - monitor on telemetry Acute exacerbation of chronic diastolic heart failure with volume overload - diuresis R. Osteo - continue [employer] management Other home medications as directed. DAKINS 1/2 strength (0.25%) topical solution Furosemide (Lasix) inj 100 mg Acetaminophen (Tylenol) tab 650 mg albuterol (VENTOLIN HFA/PROVENTIL HFA) inhaler amitriptyline (Elavil) tab 100 mg amLODIPine (Norvasc) tab 10 mg Polyethylene Glycol 3350 (Miralax) oral powder 17 g AND [START ON 08/17/2023] senna-docusate (Senokot-S) 1 Tablet AND [START ON 08/18/2023] Bisacodyl (Dulcolax) tab 5 mg AND [START ON 08/18/2023] Bisacodyl (Dulcolax) supp 10 mg dextrose 50% inj 25 mL dextrose 50% inj 50 mL glucagon (Glucagen) inj 1 mg Glucose (Glutose 15) 40 % gel 15 g of glucose Glucose (Glutose 15) 40 % gel 30 g of glucose glucose chew tab 16 g hEParin inj 7,500 Units hydrOXYzine HCl tab 50 mg insulin aspart (NovoLOG) inj Insulin Glargine (Lantus) inj 10 Units levothyroxine (Levoxyl) tab 175 mcg LiquaCel Lisinopril (Prinivil) tab 40 mg melatonin tab 3 mg omeprazole (PriLOSEC) cap 20 mg ondansetron (Zofran) inj 4 mg Simvastatin (Zocor) tab 40 mg sodium chloride 0.9 % flush/inj 3 mL Orders Placed This Encounter Procedures Heart Healthy Consistent Carbohydrate Diet : Sodium: 2 gm --- Number of Choices: 4 (60 grams) --- Fluid Restriction (ml): None PHARMACOLOGIC VTE PROPHYLAXIS: hEParin CODE STATUS: Full Code EXPECTED DISCHARGE DATE: 08/18/2023 I spent a total of 45 minutes coordinating, documenting, and providing care for this patient excluding time spent in the performance of separately billed services. documented in this encounter H&P Notes * Kali Mooney MD - 08/15/2023 6:01 AM EDT Images from the original note were not included. [facility] PRESENTING PROBLEM: chest pain HPI: This is a 63 y woman with below pmh that includes morbid obesity, stage 3-4 ckd, HTN, dm2, fibromyalgia, hypothyroid, anemia of chronic disease, and chf with preserved EF. She was admitted here 2 months ago with chest pain, from a rehab facility. Now she is at [facility], and she cannot participate in rehab due to her foot ulcer and difficulty ambulating. However, she reports that she couldn't get into a ivy lift yesterday and that she had to put weight on her infected foot. This morning she was sent to ED for evaluation with complaint over chest pain that radiated to right shoulder.While in ED, she received nitroglycerin which may have improved her pain. There is concern that herchf may be worse as cxr shows edema and there is also concern over thromboembolic disease - she will need vq scan due to advanced ckd. Therefore she was recommended for admission. Overall she is a very poor historian and was asleep when I came to examine her. She didn't want to return to rehab as she said it is cold for her there. I suspect she was still very sleepy. Also she mentioned to ED provider that she may have had hallucinations involving her mother. ED course: chest pain improved with sl ntg ROS: Patient very somnolent and not reliable Subjective Patient's past history, medications, and allergies were reviewed. Objective Physical Exam Most Recent Vital Signs: BP: 165 mmHg/74 mmHg (08/15/23 0500) Pulse: 67 (08/15/23 0500) Temp: 36.39 C (08/15/23 0337) Temp Summary: Temp Min: 36.4 C (97.5 F) Max: 36.4 C (97.5 F) SpO2: 96 % (08/15/23 0400) O2 flow rate: Supplemental O2 Delivery: Constitutional: chronically ill appearing middle aged woman resting in bed, not in acute distress. HEENT: normal: normocephalic, atraumatic Eyes: sclera and conjunctiva normal Neck: supple CV: normal rate Chest: normal respiratory effort, lungs clear to auscultation anteriorly, no wheezing Abdomen: soft, bowel sounds normal, no tenderness Extremities: 3+ edema; slightly worse on right Skin: warm, dry, right foot covered in bandages. Neuro: somnolent, on being woken up oriented to person, place but then falls asleep right away, generalized weakness but otherwise non-focal Peripheral Line Anterior;Left Hand 20 Gauge (Active) Number of days: 0 STUDIES: Encounter Orders Labs and other studies reviewed with pertinent findings noted below: Results for orders placed or performed during the hospital encounter of 08/15/23 TROPONIN T, HIGH SENSITIVITY Result Value Ref Range Troponin T, High Sensitivity 145 (HH) <=14 ng/L COMPREHENSIVE METABOLIC PANEL Result Value Ref Range BUN 64 (H) 6 - 20 mg/dL Creatinine 2.2 (H) 0.5 - 1.0 mg/dL Estimated Glomerular Filtration Rate 25 (L) >=60 mL/min Sodium 133 (L) 135 - 146 mmol/L Potassium 5.2 (H) 3.5 - 5.1 mmol/L Chloride 105 98 - 107 mmol/L CO2 18 (L) 22 - 32 mmol/L Anion Gap 10 7 - 15 mmol/L Glucose 127 (H) 70 - 120 mg/dL Albumin 2.2 (L) 3.8 - 5.0 g/dL AST 29 10 - 35 U/L Alkaline Phosphatase 173 (H) 35 - 130 U/L Bilirubin, Total <0.2 <=1.2 mg/dL Calcium 8.7 8.4 - 10.2 mg/dL Protein 7.2 6.0 - 8.3 g/dL ALT 8 (L) 10 - 35 U/L CBC Result Value Ref Range WBC 10.40 4.00 - 10.80 K/uL RBC 2.98 3.85 - 5.15 M/uL HGB 8.4 (L) 12.0 - 15.3 g/dL HCT 27.4 (L) 36.0 - 45.2 % MCV 91.9 81.5 - 97.5 fL MCH 28.2 27.0 - 34.0 pg MCHC 30.7 32.0 - 36.0 g/dL RDW 15.9 11.5 - 15.5 % PLT 349 140 - 400 K/uL MPV 10.3 6.6 - 11.1 fL nRBCs 0 <=0 /100 WBCs DIFFERENTIAL, AUTOMATED Result Value Ref Range WBC 10.40 4.00 - 10.80 K/uL Neutrophils % 52.9 40.0 - 75.0 % Lymphocytes % 28.1 18.0 - 42.0 % Monocytes % 8.6 1.0 - 11.0 % Eosinophils % 9.1 (H) 0.0 - 6.0 % Basophils % 0.7 0.0 - 2.0 % Immature Granulocytes % 0.6 0.0 - 2.0 % Absolute Neutrophils 5.51 1.80 - 7.70 K/uL Absolute Lymphocytes 2.92 1.00 - 4.80 K/ul Absolute Monocytes 0.89 0.00 - 1.10 K/uL Absolute Eosinophils 0.95 (H) 0.00 - 0.70 K/uL Absolute Basophils 0.07 0.00 - 0.20 K/uL Absolute Immature Granulocytes 0.06 0.00 - 0.20 K/uL D-DIMER Result Value Ref Range D-Dimer 1.70 (H) <0.50 ug/mL FEU TROPONIN T, HIGH SENSITIVITY Result Value Ref Range Troponin T, High Sensitivity 141 (HH) <=14 ng/L BNP, NT-PRO Result Value Ref Range BNP, NT-Pro 1,808 (H) <300 pg/mL XR CHEST 1 VIEW Final Result PROCEDURE INFORMATION: Exam: XR Chest Exam date and time: 08/15/2023 3:46 AM Age: 63 years old Clinical indication: Other: Chest pain TECHNIQUE: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 NEURO: No focal deficits. PSYCH: Appropriate affect and insight. DATA: Labs & Imaging Reviewed Below: EKG 08/15/2023 NSR 74 bpm LAFB RBBB Nuclear Stress Test 06/19/2023 This is a limited study with only stress images. Patient refused rest imaging. Stress perfusion -Probably normal. small area of basal inferior wall mild intensity defect. Restingimages are not available so ischemia can not be assessed. Gated SPECT images reveals normal myocardial thickening and wall motion Echo 06/04/2023 .The qualitative LV ejection fraction [...] left ventricular hypertrophy mild aortic valve stenosis [id number] mitral valve regurgitation moderate tricuspid regurgitation and right ventricular systolic pressure of 30-40 mm Hg IMPRESSION: Chest Pain Elevated Troponin R Heel Wound Hyperkalemia Hyponatremia Hypoalbuminemia HFpEF Moderate Pulmonary HTN Junctional Rhythm LAFB RBBB Morbid Obesity CKD 3-4 Anemia PLAN: -Atypical chest pain described. Pain is reproducible on exam. She is chest pain free. -Troponin's elevated in the setting of demand ischemia. -EKG did not show ischemic changes, unchanged from prior. -DD elevated. VQ scan did not show pulmonary embolism. -Fluid status is difficult to assess due to body habitus. Recommend IV diuresis while she is here rather than PO. -Start IV Lasix 100 mg BID. -Please document [...] day. Case discussed and coordinated with Dr. Conway. Please see Dr. Conway's notes for further recommendations. I spent a total of 64 minutes coordinating, documenting, and providing care for this patient excluding time spent in the performance of separately billed services or time spent by another provider/QHP. SANDRA Nunes Department of Cardiology Associated attestation - Nan Conway MD - 08/16/2023 4:09 PM EDT I have reviewed the advanced practitioner's documentation on the date of service referenced in note, and I agree with, and take responsibility for the plan of care. I spent a total of 20 minutes coordinating, documenting, and providing care for this patient excluding time spent in the performance of separately billed services or time spent by another provider/QHP. 63 yr old old with morbid obesity , HF with preserved EF, CKD, DM, admitted with chest pain,and volume overload Continue with IV diuresis * Mirian Gamino LPN - 08/16/2023 7:45 AM EDTAssociated Order(s): WOUND CONSULT IP Images from the original note were not included. Order Date:08/15/2023 Ordering User:VAZQUEZ ROMERO [[id number]] Attending Provider:Deng Ness DO [[id number]] Authorizing Provider: Vazquez Romero MD [[id number]] Department:[facility][[id number]] Order Specific Information Ord er: WOUND CONSULT IP [CUSTOM: [id number]] Order #: [id number]: 1 Priority: Routine Class: Nursing Unit Reason for Consult: -> rt heel wound Consulting Provider: -> Charley Provider Released on: 08/15/2023 3:59 PM Priority: Routine Class: Nursing Unit Reason for Consult: -> rt heel wound Consulting Provider: -> Charley Provider Released on: 08/15/2023 3:59 PM Wound Care consult done for Rt heel wound. HPI; Information obt from chart, and patient: 63 y woman with below pmh that includes morbid obesity, stage 3-4 ckd, HTN, dm2, fibromyalgia, hypothyroid, anemia of chronic disease, and chf with preserved EF. She was admitted here 2 months ago with chest pain, from a rehab facility. Now she is at [facility], and she cannot participate in rehab due to her foot ulcer and difficulty ambulating. However, she reports that she couldn't get into ahoyer lift yesterday and that she had to put weight on her infected foot. This morning she was sentto ED for evaluation with complaint over chest pain that radiated to right shoulder. Seeing her mother. [facility] 9 to 8. Has midline in R arm for IV abd for acute osteomyelitis of R ankle. Given 1 nitro and 324mg aspirin en route. While in ED, she received nitroglycerin which may have improved her pain. There is concern that herchf may be worse as cxr shows edema and there is also concern over thromboembolic disease - she will need vq scan due to advanced ckd. Therefore she was recommended for admission. Overall she is a very poor historian. Pt was admitted to med floor for chest pain. Wound care was asked to see her for Rt heel wound by Dr Romero. Pt is known to wound care for Rt heel wound. She was last seen by wound care during last admission on 06/18/23. She has a f/u appointmenttomorrow with [facility]. She reports her last surgery was last Sunday. Pt reports she was made to stand and put weight on her Rt foot. This caused her increased pain. Pt should be NWB unless she's in aheel offloading shoe. Discussed wound care with Nancy at [facility]. Pt is to have wound vac to Rtheel. For now they were doing NS WTD dressings. Nancy also reported pt was TTWB there and she did not have a heel offloading shoe. Past medical history: Past Medical History: Diagnosis [...] performed by Lynnette Rasmussen DPM at OR [facility] INFORMATION wisdom teeth removed INJECTION CERVICAL/THORACIC 06/26/2014 INJECTION SPINE LUMBAR CERVICAL OR THORACIC performed by Héctor Marvin Cousins, DO at OR [facility] INJECTION CERVICAL/THORACIC 07/10/2014 INJECTION SPINE LUMBAR CERVICAL OR THORACIC performed by Héctor Marvin Cousins, DO at OR [facility] KNEE ARTHROSCOPY/REPAIR LIGAMENT 1997 Knee Scope,Aid Ant [...] comment) Heart racing Dextromethorphan Hives Doxylamine Hives Vmzuugrzu-Ceofjkwvcu-Mb-Apap Edema face/lips/tongue and Itching Amoxicillin Food (See Comments) Hives [employer] brand 7 Grain Bread Latex Sulfa Antibiotics Other (Please comment) and Rash malaise Code status: Code Status: Full Code Focused Wound Assessment: VS: BP 139/50 | Pulse 67 | Temp 36.9 C (98.4 F) | Resp 18 | Ht 1.575 m (5' 2") | Wt 133.3 kg (293 lb 14 oz) | LMP 11/22/2002 | SpO2 99% | BMI 53.75 kg/m | BSA 2.41 m General: NAD. Resting supine in bed. Obese. Norm appearance. Neuro: AA&O MS: AROM Vascular: BLE edema. DP pulses non-palpable to BL lower extremities. PT pulses non-palpable to BL extremities. SENIOR STAFF CONSULTANT is brisk to all digits of BL lower extremities . Pedal hair is absent to BL lower extremities. Temperature gradient is warm to warm from proximal tibia to foot of BL lower extremities. Integumentary: Skin color, turgor intact. No signs of infection. Hyperkeratotic skin to surroundingskin. Central area of wound is purple, remaining wound base is pink granular. Central deepest area probes to bone. Sutures intact to posterior heel. No purulence, necrosis or sloughing. Eduar: 15 08/15/231999 Eduar Scale - Daily Sensory Perception 4 Moisture 3 Activity 1 Mobility 2 Nutrition 3 Friction and Shear 2 Eduar Score (auto-calculation) 15 Support surface: standard mattress, pillows. Routine repositioning past 24 hrs: admitted < 24 hrs, no Moisture management past 24 hrs: moisture absorbent pads. Nutritional support: High Calorie/High Protein Supplement - Orders Placed This Encounter Procedures Heart Healthy Consistent Carbohydrate Diet : Sodium: 2 gm --- Number of Choices: 4 (60 grams) --- Fluid Restriction (ml): None Review of Labs/Tests: Latest Reference Range & Units 08/16/23 05:58 08/16/23 08:03 Troponin T, High Sensitivity <=14 ng/L 151 (HH) Sodium 135 - 146 mmol/L 136 Potassium 3.5 - 5.1 mmol/L 5.4 (H) Chloride 98 - 107 mmol/L 105 CO2 22 - 32 mmol/L 19 (L) BUN 6 - 20 mg/dL 62 (H) Creatinine 0.5 - 1.0 mg/dL 2.1 (H) Estimated Glomerular Filtration Rate >=60 mL/min 27 (L) Anion Gap 7 - 15 mmol/L 12 Glucose 70 - 120 mg/dL 114 Calcium 8.4 - 10.2 mg/dL 8.7 Glucose Meter 70 - 120 mg/dL 118 CBC Rpt ! WBC 4.00 - 10.80 K/uL 9.14 RBC 3.85 - 5.15 M/uL 3.14 HGB 12.0 - 15.3 g/dL 8.7 (L) HCT 36.0 - 45.2 % 28.2 (L) MCV 81.5 - 97.5 fL 89.8 MCH 27.0 - 34.0 pg 27.7 MCHC 32.0 - 36.0 g/dL 30.9 RDW 11.5 - 15.5 % 15.8 PLT 140 - 400 K/uL 357 MPV 6.6 - 11.1 fL 10.6 CRP (Inflammatory Marker) <=5 mg/L 17 (H) (HH): Data is critically high (H): Data is abnormally high (L): Data is abnormally low !: Data is abnormal Rpt: View report in Results Review for more information Interventions/treatments: Pt was seen and examined at bedside. Introduces self and role as wound care nurse. Pt is known to wound care. Dressing to Rt heel loose and coming off. Removed. Cleansed w/ soap & water. 1/2 inchiodoform packing done to central areas of wound. For Now, NS WTD to remaining wound. Secured in place w/ roll gauze. Elevated heel to float off bed surface. Recommendations: Rt heel DFU: -removed dressing daily. Cleanse w/ soap & water. Pat dry. -iodoform 1/2 inch packing to central area of wound. -cover remaining wound bed w/ 1/2 [facility] WTD. -secure in place w/ roll gauze. -elevate heel to float off the bed surface. -may continue w/ planned wound vac OP. Thank you for consult. Coordinated care w/ nursing staff. Call or TT w/ any questions or concerns. Mirian Cain LPN,WCC,OM[facility] Licensed Practical Nurse, Wound Care Certified, Ostomy configuration management specialist Wound Care Resource Nurse 08/16/23 10:46 AM * Marti Lal, PT - 08/15/2023 3:36 PM EDTAssociated Order(s): ADULT PHYSICAL THERAPY CONSULT IP GENERAL EVALUATION - Physical Therapy [facility]-[address] [id number] Name: Alexandria Smith Location: [facility] [id number] Date: 08/15/2023 Time: 3:36 PM Alexandria Smith is a/an 63 year old female. Patient Status: Observation Insurance: Payor: [employer] MEDICARE ADVANTAGE Plan: AET MEDICARE ADVANTAGE PPO Product Type: *No Product type* Patient Seen: at bedside, nursing cleared patient for therapy Patient Identified By: Name, ID Band and Date Diagnosis: Chest pain, Osteomyelitis of right foot, Generalized weakness (08/15/231535) Status of treatment: Evaluation completed (08/15/231535) Orders: PT evaluation and treatment (08/15/231535) Weight Bearing Status: Non-weight bearing;RLE (08/15/231535) Precautions: Falls;Oxygen;Safety (08/15/231535) Total Treatment Time--free text: 40 minutes (08/15/231535) Past Medical History: Past Medical History: Diagnosis [...] performed by Lynnette Rasmussen DPM at OR [facility] INFORMATION wisdom teeth removed INJECTION CERVICAL/THORACIC 06/26/2014 INJECTION SPINE LUMBAR CERVICAL OR THORACIC performed by Héctor Rios, at OR [facility] INJECTION CERVICAL/THORACIC 07/10/2014 INJECTION SPINE LUMBAR CERVICAL OR THORACIC performed by Héctor Rios, at OR [facility] KNEE ARTHROSCOPY/REPAIR LIGAMENT 1998 Knee Scope,Aid Ant Cruciate Repair x 2 Subjective: Pt agreeable to PT evaluation and treatment Social History/Disposition Lives with: Alone (but admitted from [facility] (has been at [facility] or hospitilized since May per chart review)) (08/15/231535) Prior Level of Function Reported by: Chart review (08/15/231535) Ambulation: Ambulatory with assistance and device;Ambulatory with device (modified independant prior to recent hospitilization, requiring assistance since) (08/15/231535) Ambulatory Device: Rolling walker (08/15/231535) Observations Consciousness: Alert (08/15/231535) Orientation: Oriented times 4 (08/15/231535) Psychosocial: Patient can communicate basic needs (08/15/231535) Sitting Posture: Forward head;Rounded shoulders (08/15/231535) Pain: Patient has complaints of pain. Pain located right shoulder. Not rated. Strength Assessment Strength Assessment: Deficits noted (08/15/231535) WNL, except: LLE;RLE (08/15/231535) LLE: Hip;2+/5;Knee;Ankle;3+/5 (08/15/231535) RLE: Hip;2+/5;Knee;Ankle;3+/5 (08/15/231535) P.T. Bed Mobility Roll (Right): Minimal Assistance (08/15/231535) Roll (Left): Minimal Assistance (08/15/231535) Supine-Sit: Contact Guard (HOB elevated, use bed rails) (08/15/231535) Sit-Supine: Moderate Assistance (08/15/231535) Transfers Sit-Stand: Not Tested (not safe to attempt NWB right foot with assist of 1) (08/15/231535) Balance Sit (Static): Good (08/15/231535) Sit (Dynamic): Fair (08/15/231535) Patient and or Family Goal(s): to get well Patient Education Review of Precautions: Weight Bearing Status;Safety;Fall (08/15/231535) Safety Awareness: Patient verbalizes insight of current deficits;Patient demonstrates carryover of insight during functional tasks (08/15/231535) Preferred learning method: Combination (08/15/231535) Barriers to learning: Medical Status;Cognition (08/15/231535) Topic of Education: Weight bearing restrictions, Safety with mobility, Goals/plan of care, and Fallprevention Method of Education: Verbal discussion and explanation provided to patient: verbalized understanding and or agreement of this information Treatment Provided: Therapeutic Activities 25 minutes: bed mobility training Evaluation Moderate Complexity 15 minutes - 07822: Patient was cooperative, pleasant, and alert during treatment session. Moderate complexity evaluation performed and 1-2 personal factors or comorbidities were identified that will impact plan of care, including weight bearing restrictions, obesity,and evolving presentation. Patient presents with limitations in strength, bed mobility, transfers, balance, and safety, which will impact plan of care. These limitations will be addressed by the goals set for this patient. Alarm Status Patient positioned in: Bed (08/15/231535) With: Bed alarm intact and functioning and call villeda in reach (08/15/231535) Goals: Demonstrate Bed Mobility with: Sit to supine: supervision (with cues) Demonstrate Transfers with: Bed to chair: moderate assistance (pt does 50%) with use transfer board Demonstrate w/c mobility: modified independent (with device or slow) Demonstrate w/c management: minimal assistance (pt does 75%) Time Frame: 10 sessions Assessment: Alexandria Smith required up to moderate assist for bed mobility. Due to patient body habitusand BLE weakness did not attempt to stand NWB right foot at this time. Did attempt to have patient scoot buttocks toward head of bed in sitting, pt unable without assistance. [facility] mobility score of 9. Will continue to follow while at [facility] .Would consider post-acute care services which may include home health, care home, outpatient therapy, or inpatient rehab. The level of care will be determined in collaboration with the patient, family/caregiver, and care team members. Deficits requiring P.T. treatment needs: Mobility;Balance;Weakness (08/15/23 153) Equipment Needs: Treatment Plan: Bed mobility training, Transfer training, Wheelchair mobility/management training, ROM exercises, Strengthening exercises, Balance activities, and Educate on safety with fall prevention and weight bearing restrictions. Anticipated Frequency (on eval): 3 to 5 times per week (08/15/23 153) AM PAC Score with Stairs: 9 * Thao Coronado RN - 08/15/2023 1:36 PM EDTAssociated Order(s): CARE MANAGEMENT CONSULT IP See CM ancillary note. documented in this encounter Nursing Notes * Mirian Gamino LPN - 08/20/2023 10:50 AM EDT Images from the original note were not included. Pt was seen this am for f/u wound care to Rt heel. Dressing removed. Cleansed w/ soap & water. Wound appearance has improved. Measurements area smaller. Wound base is 100% granular. Pt denied pain in wound however she did c/o "feeling terrible today because she's congested, coughing and feel run down." Pt is pale and pasty looking. Call or TT w/ any questions or concerns. Mirian Cain LPN,[facility] Licensed Practical Nurse, Wound Care Certified, Ostomy configuration management specialist Wound Care Resource Nurse 08/20/23 10:54 AM * Julia Calvo SN - 08/20/2023 9:32 AM EDT See the Licensed Professional's note for clinical information and recommendations. The signature ofthe Licensed Professional on this note acknowledges only the presence of the student's note within the patient record. By regulation, students' notes are for training and educational purposes only and play no part in the documentation of care or clinical treatment of patients. 0700: Responsibility taken over patient. Bedside shift report received. VS completed. BP 154/60. 0800: Assessment completed. Tingling noted in RLE.Edema noted on bilateral LE. Patient has occasional coughing and diminished bilateral lung sounds. Tenderness noted in RUQ on abdomen, no pain upon palpitation. 0900: Patient is hacking and coughing up sputum. Asked patient to put sputum onto tissue next time but has not been able to do so. Blood sugar level was 238. 0956: Medications given to patient. 4 units of insulin needed. 1050: Assisted Mirian with wound dressing changes and wound cleaned. 1105: Tylenol given due to 7/10 pain. 1121: Blood glucose level at 187. 1132: VS completed. BP 174/64. 1152: 2 units of insulin given in RUQ of abdomen. 1205: Responsibility relieved by Rama DE LEÓN for lunch break. 1300: Responsibility taken over patient. Patient sleeping in chair. IV checked. 1356: Heparin given in RLQ. * Sydnee Llamas RN - 08/19/2023 7:39 AM EDT Patient refused to turn and reposition throughout this shift. Educated on the need to reposition, refused and requested to remain on back to sleep. * Ekta Khanna SN - 08/17/2023 11:47 AM EDT See the Licensed Professional's note for clinical information and recommendations. The signature ofthe Licensed Professional on this note acknowledges only the presence of the student's note within the patient record. By regulation, students' notes are for training and educational purposes only and play no part in the documentation of care or clinical treatment of patients. End of shift report given to Evelina Mathur RN @ 1145. No changes to report. * Ekta Khanna SN - 08/17/2023 10:42 AM EDT See the Licensed Professional's note for clinical information and recommendations. The signature ofthe Licensed Professional on this note acknowledges only the presence of the student's note within the patient record. By regulation, students' notes are for training and educational purposes only and play no part in the documentation of care or clinical treatment of patients. Administered PRN Acetaminophen as prescribed by provider @ 0929. Pt reported 09/18 pain @ 0929. Stabbing, radiating pain in R foot in wound area. F/u pain reported 04/21 @1015. * Mirian Gamino LPN - 08/17/2023 10:37 AM EDT Pt was seen this am for f/u to foot wound. Nursing staff changed dressing this am. Pt expressed shehad a f/u appointment at [facility] and stitches were to come out today. Called center to verify. Spoke to nurse there who spoke to doctor. He gave ok to take sutures out today. Order placed. Call or TT w/ any questions or concerns. Mirian Cain LPN,[facility] Licensed Practical Nurse, Wound Care Certified, Ostomy configuration management specialist Wound Care Resource Nurse 08/17/23 10:39 AM * Ekta Khanna SN - 08/17/2023 10:32 AM EDT See the Licensed Professional's note for clinical information and recommendations. The signature ofthe Licensed Professional on this note acknowledges only the presence of the student's note within the patient record. By regulation, students' notes are for training and educational purposes only and play no part in the documentation of care or clinical treatment of patients. Shift report received from CATHERINE Houser @ 0705. Assessment completed @ 3261. No new abnormal findings. Successfully administered all AM meds. Pain reported 0/10. * Ekta Khanna SN - 08/17/2023 10:20 AM EDT See the Licensed Professional's note for clinical information and recommendations. The signature ofthe Licensed Professional on this note acknowledges only the presence of the student's note within the patient record. By regulation, students' notes are for training and educational purposes only and play no part in the documentation of care or clinical treatment of patients. Assisted Evelina Mathur RN in dressing change of foot wound. No new abnormalities. Pt. pain reported 0/10. * Sydnee Llamas RN - 08/15/2023 7:00 AM EDT Patient alert and oriented x4, call villeda within reach. Admission completed, call villeda within reach,oriented to room. documented in this encounter ED Notes * Deng Ness DO - 08/15/2023 3:47 AM EDT HISTORY OF PRESENT ILLNESS Alexandria Smith is a 63 year old female who presents to the ED for evaluation of Chest Pain. The patientwas seen at 08/15/23 3166. 63-year-old female with a history of diabetes, kidney disease, pulmonaryhypertension, hypothyroid, heart failure presenting to the emergency department with chest pain. She woke up with chest pressure that radiated to her right shoulder. She denies feeling short of breath, abdominal pain, nausea, vomiting. She says she maybe hallucinating and she is seeing riding on the pryor. She says she was sleep walking while she was in the hospital just recently and discharged to the retirement she is currently at yesterday. She had a foot surgery for osteomyelitis. She is c urrently on IV antibiotics through a PICC line. She wears 2 L nasal cannula oxygen at baseline she reports for her heart failure. History provided by: patient post closer used: No Chest Pain Review of Systems Cardiovascular: Positive for chest pain. The patient's allergies, past history, and medications were reviewed. PHYSICAL EXAM Initial Vitals (see all): BP 160/69 | Pulse 75 | Resp 24 | Temp 97.5 | O2 97 %Weight 130.64 kg | Height 157.5 cm | BMI 52.68 kg/m2 Initial Pain Assessment (see all): 8 (severe pain)/10, location: central chest ([facility] Adult Scale 0-10) Physical Exam Vitals and nursing note reviewed. Constitutional: General: She is not in acute distress. Appearance: Normal appearance. She is well-developed. She is ill-appearing. HENT: Head: Normocephalic and atraumatic. Nose: Nose normal. Mouth/Throat: Mouth: Mucous membranes are moist. Eyes: Extraocular Movements: Extraocular movements intact. Cardiovascular: Rate and Rhythm: Normal rate and regular rhythm. Pulses: Radial pulses are 2+ on the right side and 2+ on the left side. Dorsalis pedis pulses are 2+ on the right side and 2+ on the left side. Heart sounds: Normal heart sounds. Pulmonary: Effort: Pulmonary effort is normal. No respiratory distress. Breath sounds: Normal breath sounds. No decreased breath sounds, wheezing or rales. Abdominal: General: Bowel sounds are normal. There is no distension. Palpations: Abdomen is soft. Tenderness: There is no abdominal tenderness. There is no guarding. Musculoskeletal: General: Normal range of motion. Cervical back: Normal range of motion. Right lower leg: Edema present. Left lower leg: Edema present. Skin: General: Skin is warm. Coloration: Skin is pale. Neurological: General: No focal deficit present. Mental Status: She is alert. Psychiatric: Mood and Affect: Mood normal. PROCEDURES AND TREATMENTS ED Orders | ED Results MEDICAL DECISION MAKING Nursing notes and vital signs were reviewed. ED Course as of 08/15/23 0559 SunAug 15, [id number] It does appear the patient has an enlarged cardiac silhouette on her chest x-ray with some increased interstitial markings possibly due to a pulmonary edema. [AT] 0354 On my independent review the patient's EKG she has a sinus rhythm with right bundle-branch block. Other intervals within normal limits. Overall similar compared to prior EKGs. [AT] 0452 Patient says her chest pressure is improving but her blood pressure is still elevated. I am going to give her more nitro paste. [AT] 0522 Patient's troponin series is flat but elevated in the 140s. Currently the patient is sleeping.I have updated the brother Aleisha at bedside. I am reaching out to the hospitalist to discuss admission. [AT] 0545 I discussed the patient with the hospitalist who is going to come evaluate the patient. We agreed on 80 mg of Lasix. [AT] 0558 Patient has been accepted by the hospitalist team for further care. [AT] ED Course User Index [AT] Deng Ness DO Differential Diagnoses Based on my history, physical exam, and evaluation, the differential includes, but is not limited, to the following diagnoses: ACS, PE, dehydration, electrolyte abnormality, delirium, UTI, dissectionunlikely, hypertensive urgency, CHF, pulmonary edema, dissection unlikely, stroke/intracranial hemor rhage unlikely. 63-year-old female presenting with chest pain. It is pressure that radiates to her right shoulder. She was recently hospitalized and had surgery therefore I am going to send a D-dimer along with a metabolic panel, troponin, CBC and obtain an EKG and chest x-ray. She would osteomyelitis recently currently on IV antibiotics. No complaints of fevers. Patient does appear in some distress due to her discomfort. When I asked her what is bothering her the most she says her heel and then the chest pressure and shoulder pain. She is hypertensive. I will but nitro paste on and give her aspirin. Amount and/or Complexity of Data Reviewed Labs: ordered. Radiology: ordered. ECG/medicine tests: ordered. Risk OTC drugs. Prescription drug management. Decision regarding hospitalization. Clinical Impressions Chest pain Acute pulmonary edema (HCC) Acute on chronic congestive heart failure, unspecified heart failure type (HCC) Hypertensive urgency Disposition Admitted. I discussed the management of this patient with the admitting provider and I made a decision to admit the patient. Admission Order Ordered Status . 08/15/23 0558 Assign to Observation ONCE Ordered Deng Ness * Priya Haynes RN - 08/15/2023 3:38 AM EDT [facility] Report: From [facility]. Having mid sternal chest pain that radiates to L arm. Seeing her mother. Given 2 nitro by [facility] staff taking pain from 9 to 8. Has midline in R arm forIV abd for acute osteomyelitis of R ankle. Given 1 nitro and 324mg aspirin en route. documented in this encounter Miscellaneous Notes * Care Plan - Rama Dempsey RN - 08/21/2023 1:01 PM EDT Clinical Goal(s): Patient will remain free from injury this shift. (08/20/232035) Possible barriers to meeting goal(s)/advancing plan of care: Acuity of illness Stability of the patient: Moderately stable - low risk of patient condition declining or worsening Summary regarding today's goal(s): Met: Pt was free from injury this shift [facility]ations[facility] to Dada Posey RN * Ancillary Progress Note - Thao Coronado RN - 08/21/2023 11:04 AM EDT CARE MANAGEMENT - ADULT DISCHARGE NOTE [facility] [address] Name: Alexandria Smith Location: [facility] 3B-3017/D Date: 08/21/2023 Time: 11:05 AM The following coordination of care and discharge plan has been coordinated with the care team, patient, family and/or caregiver according to the patients needs and preferences. Discharge Discharge Second Notice Important Message from Medicare delivered: Yes (08/21/231103) Date Delivered: 08/19/23 (08/21/23 110) Discharge Transportation: Wheelchair Van (08/21/231103) Date of scheduled discharge transportation: 08/21/23 (08/21/23 1104) Final Discharge Plan (Complete only at time of Discharge): SNF (08/21/23 1104) Destination - Admitted Since 08/15/2023 Service Provider Selected Services Address Phone Fax Patient Preferred Last Updated [facility] [address] [place] [phone] -- Thao Coronado RN 08/21/2023 1104 Narrative: Patient discharged to [facility]. Patient requesting [employer] van for transportation and aware of out of pocket cost. [facility] Claimed ride for 1 PM. Facility and nursing staff aware. [facility] transportation now set for 3 PM per [facility]. Facility and nursing updated. * Care Plan - Connie Jalloh RN - 08/21/2023 5:34 AM EDT Clinical Goal(s): Patient will remain free from injury this shift. (08/20/232035) Possible barriers to meeting goal(s)/advancing plan of care: Acuity of illness Stability of the patient: Moderately stable - low risk of patient condition declining or worsening Summary regarding today's goal(s): Met: Patient remained free from injury this shift Recommendations: Continue current plan of care. * Ancillary Progress Note - Melisa Rivero PTA - 08/20/2023 11:30 AM EDT Attempted to work with pt this am. Sitting in bed coughing, congested. States she feels louse and does not feel up to doing any therapy today * Ancillary Progress Note - Thao Coronado RN - 08/20/2023 8:23 AM EDT SNF APPROVAL-Alexandria Smith . Approved 08/19-08/31 NRD 09/02 Auth #[id number]. Updates into Availity or fax to [phone]. Nurse reviewer Felicitas [phone] * Care Plan - Krystina Coley RN - 08/20/2023 5:20 AM EDT Clinical Goal(s): Pt will have a restful night (08/19/23 2200) Possible barriers to meeting goal(s)/advancing plan of care: Clinical dx Stability of the patient: Moderately unstable - medium risk of patient condition declining or worsening Summary regarding today's goal(s): Met: Pt had a restful night Recommendations: Continue with plan of care * Care Plan - Rama Dempsey RN - 08/19/2023 5:07 PM EDT Clinical Goal(s): Pt will tolerate dressing change this shift (08/19/23 0700) Possible barriers to meeting goal(s)/advancing plan of care: Acuity of illness Stability of the patient: Moderately stable - low risk of patient condition declining or worsening Summary regarding today's goal(s): Met: Pt tolerated dressing change this shift Recommendations: Continue plan of care * Care Plan - Sydnee Llamas RN - 08/19/2023 5:48 AM EDT Clinical Goal(s): Pt will remain free from injury throughout this shift. (08/18/232014) Possible barriers to meeting goal(s)/advancing plan of care: Acuity of illness Stability of the patient: Moderately stable - low risk of patient condition declining or worsening Summary regarding today's goal(s): Met: Patient remained free from injury throughout this shift. Recommendations: Continue plan of care * Care Plan - Rama Dempsey RN - 08/18/2023 6:18 PM EDT Clinical Goal(s): Pt will tolerate dressing change (08/18/23 0900) Possible barriers to meeting goal(s)/advancing plan of care: Acuity of illness Stability of the patient: Moderately stable - low risk of patient condition declining or worsening Summary regarding today's goal(s): Met: Pt tolerated dressing change Recommendations: Continue plan of care * Care Plan - Sydnee Llamas RN - 08/18/2023 5:05 AM EDT Clinical Goal(s): Pt will remain free from injury throughout this shift. (08/17/23 1945) Possible barriers to meeting goal(s)/advancing plan of care: Acuity of illness Stability of the patient: Moderately stable - low risk of patient condition declining or worsening Summary regarding today's goal(s): Met: Patient remained free from injury throughout this shift. Recommendations: Continue plan of care * Care Plan - Evelina Martinez RN - 08/17/2023 6:47 PM EDT Clinical Goal(s): Patient will tolerate dressing change AEB rating pain at a 5/10 or less with or without the use of PRN pain medications. (08/17/23 1000) Possible barriers to meeting goal(s)/advancing plan of care: foot ulcer Stability of the patient: Moderately stable - low risk of patient condition declining or worsening Summary regarding today's goal(s): Met: Patient denies any need for PRN pain medications this shift. Patient tolerated dressing changewith no complaints of pain. Recommendations: Continue to assess for the need for PRN pain medications. * Ancillary Progress Note - Tim El PTA - 08/17/2023 3:00 PM EDT PROGRESS NOTE - Physical Therapy [address] [place] [address] Name: Alexandria Smith Location: [facility] 3B-3017/D Date: 08/17/2023 Time: 1500 Alexandria Smith is a/an 63 year old female. Patient Status: Inpatient Insurance: Payor: [employer] MEDICARE ADVANTAGE Plan: AETNA MEDICARE ADVANTAGE PPO Product Type: *No Product type* Payor: Captimo MA Plan: [employer] [facility] Product Type: HMO Patient Seen: at bedside, nursing cleared patient for therapy Patient Identified By: Name, ID Band and Date Diagnosis: Chest pain, Osteomyelitis of right foot, Generalized weakness (08/15/231535) Status of treatment: Treatment completed (08/17/23 1500) Orders: PT evaluation and treatment (08/15/231535) Weight Bearing Status: Non-weight bearing;RLE (08/17/23 1500) Precautions: Safety;Falls;Oxygen;Alarms (08/17/23 1500) Total Treatment Time--free text: 55 mins (08/17/23 1500) Subjective: "I'm feeling ok now" Pain: Patient has complaints of pain. Pain located R shoulder 4/10 P.T. Bed Mobility Roll (Right): Minimal Assistance (08/15/231535) Roll (Left): Minimal Assistance (08/15/231535) Supine-Sit: N/A (pt declined) (08/16/23 1438) Sit-Supine: N/A (pt declined) (08/16/23 1438) Transfers Sit-Stand: Not Tested (not safe to attempt NWB right foot with assist of 1) (08/15/231535) Ambulation: No GT Balance Sit (Static): Good (08/15/231535) Sit (Dynamic): Fair (08/15/231535) Patient and or Family Goal(s): to get well and to return home Topic of Education: Weight bearing restrictions, Safety with mobility, Use of assistive device, andFall prevention Method of Education: Demonstrated the above task to pt: verbalized understanding and or agreement of this information and demonstrated the exercise and or task Treatment Provided: Therapeutic Exercises: 55 minutes Alarm Status Patient positioned in: Bed (08/17/231499) With: Bed alarm intact and functioning and call villeda in reach (08/17/231499) Patient Education Review of Precautions: Safety;Fall;Weight Bearing Status (08/17/231499) Review of Exercises: Pt Demonstrated Exercise;Verbal Exercises Provided (08/17/231499) Review of Home Program: Yes (08/17/231499) Safety Awareness: Patient verbalizes insight of current deficits;Patient demonstrates carryover of insight during functional tasks;Patient can communicate basic needs (08/17/231499) Preferred learning method: Combination (08/15/231535) Barriers to learning: Medical Status;Cognition (08/15/231535) Assessment: Pt tolerated tx well with no reported pain or SOB post tx session. Pt did report feeling fatigued post tx session. Pt performed supine exercises in the bed to increase strength and ROM toimprove functional mobility. Pt required rest breaks t/o tx session. Pt was left lying supine in bed with HOB elevated to comfort. No needs post tx session. Pt instructed to not get up without assistance. Deficits requiring P.T. treatment needs: Mobility;Balance;Weakness (08/15/231535) Plan: Continue with current treatment plan established on evaluation. AM PAC Score with Stairs: 8 * Ancillary Progress Note - Thao Coronado RN - 08/17/2023 12:38 PM EDT CARE MANAGEMENT - ADULT TRANSITION NOTE [facility] [address] Name: Alexandria Smith Location: [facility] 3B-3017/D Date: 08/17/2023 Time: 12:39 PM Risk Stratification Risk Stratification Psycho Social / Medical Concerns Identified: Adjustment to illness/injury (08/15/231335) Accessed [employer] to connect patients to social care resources: No (08/15/231335) OBRA or OPTIONS needed for placement: No (08/15/231335) Readmission Risk Score: 31.63 (08/17/23 1200) AM-PAC Score With Stairs : 8 (08/17/23 1000) Caregiver Information Patient Contacts Name Relation Home Work Mobile ALEISHA DOW Other - (no specific identity) [phone] Jane Pineda Sibling [phone] Thao Hussein Friend [phone] Transition of Care Checklist Narrative: Discussed during IDT. No anticipated DC at this time. CM will continue to follow for DC needs. Anticipated Transportation at Discharge: BLS Patient/Family Expectations: return to [facility] Transition Planning Additional Considerations: Care Management will continue to monitor and assist with discharge planning needs * Care Plan - Georgia Mccray RN - 08/17/2023 6:28 AM EDT Clinical Goal(s): Pt will remain free of falls this shift (08/16/23 2200) Possible barriers to meeting goal(s)/advancing plan of care: weakness Stability of the patient: Moderately stable - low risk of patient condition declining or worsening Summary regarding today's goal(s): Met: Pt remained free of falls this shift Recommendations: Continue with plan of care * Care Plan - Jina Byrnes RN - 08/16/2023 5:15 PM EDT Clinical Goal(s): Pt will be free from falls this shift (08/16/23 0830) Possible barriers to meeting goal(s)/advancing plan of care: NWB RLE, unsteady gait Stability of the patient: Moderately stable - low risk of patient condition declining or worsening Summary regarding today's goal(s): Met: pt remained free from falls this shift Recommendations: continue to implement fall precautions. PT consult. * Ancillary Progress Note - Tim El PTA - 08/16/2023 2:38 PM EDT PROGRESS NOTE - Physical Therapy [facility] [address] [place] [address] Name: Alexandria Smith Location: [facility] 3B-3017/D Date: 08/16/2023 Time: 1437 Alexandria Smith is a/an 63 year old female. Patient Status: Inpatient Insurance: Payor: AET MEDICARE ADVANTAGE Plan: AETNA MEDICARE ADVANTAGE PPO Product Type: *No Product type* Patient Seen: at bedside, nursing cleared patient for therapy Patient Identified By: Name, ID Band and Date Diagnosis: Chest pain, Osteomyelitis of right foot, Generalized weakness (08/15/231535) Status of treatment: Treatment completed (08/16/231437) Orders: PT evaluation and treatment (08/15/231535) Weight Bearing Status: Non-weight bearing (08/16/231437) Precautions: Safety;Falls;Oxygen (08/16/231437) Total Treatment Time--free text: 54 mins (08/16/231437) Subjective: "I'm just frustrated with all this" Pain: No complaints of pain P.T. Bed Mobility Roll (Right): Minimal Assistance (08/15/231535) Roll (Left): Minimal Assistance (08/15/231535) Supine-Sit: N/A (pt declined) (08/16/231437) Sit-Supine: N/A (pt declined) (08/16/231437) Transfers Sit-Stand: Not Tested (not safe to attempt NWB right foot with assist of 1) (08/15/231535) Ambulation: Declined GT Balance Sit (Static): Good (08/15/231535) Sit (Dynamic): Fair (08/15/231535) Patient and or Family Goal(s): to get well and to return home Topic of Education: Weight bearing restrictions, Safety with mobility, Use of assistive device, andFall prevention Method of Education: Demonstrated the above task to pt: verbalized understanding and or agreement of this information and demonstrated the exercise and or task Treatment Provided: Therapeutic Exercises: 54 minutes Alarm Status Patient positioned in: Bed (08/16/231437) With: Bed alarm intact and functioning and call villeda in reach (06/06/24 1438) Patient Education Review of Precautions: Safety;Fall;Weight Bearing Status (08/16/23 1438) Review of Exercises: Pt Demonstrated Exercise;Verbal Exercises Provided (08/16/23 1438) Review of Home Program: Yes (08/16/231437) Safety Awareness: Patient verbalizes insight of current deficits;Patient demonstrates carryover of insight during functional tasks;Patient can communicate basic needs (08/16/23 1438) Preferred learning method: Combination (08/15/23 153) Barriers to learning: Medical Status;Cognition (08/15/23 153) Assessment: Pt tolerated tx fair with no report feeling fatigued post tx session. Pt did report feeling fatigued post tx session. Pt performed bed exercises in the bed to increase strength and ROM toimprove functional mobility. Pt was left lying supine in bed with HOB elevated to comfort. No needspost tx session. Pt instructed to not get up without assistance. Deficits requiring P.T. treatment needs: Mobility;Balance;Weakness (08/15/23 153) Plan: Continue with current treatment plan established on evaluation. AM PAC Score with Stairs: 8 * Ancillary Progress Note - Janis Paul Cash Clerk - 08/16/2023 12:37 PM EDT Post acute authorization request submitted to . * Care Plan - Lina Posey RN - 08/15/2023 6:49 PM EDT Clinical Goal(s): pt will ambulate OOB to bedside toilet this shift (08/15/23 0650) Possible barriers to meeting goal(s)/advancing plan of care: New environment, recent surgical procedure, weightbearing status Stability of the patient: Moderately stable - low risk of patient condition declining or worsening Summary regarding today's goal(s): Met: With assistance x2 pt was able to transfer to bedside commode. Recommendations: Continue mobility based movement qshift as indicated with guidance from PT/OT and with safety precautions in place. * Ancillary Progress Note - Thao Coronado RN - 08/15/2023 1:39 PM EDT CARE MANAGEMENT - ADULT INITIAL SCREENING [facility]-[address] [address] Name: Alexandria Smith Location: [facility] 3B-3017/D Date: 08/15/2023 Time: 1:39 PM Discussed patient with the interdisciplinary care team. This Weekday Babysitter performed a chart review and met with patient at bedside to complete admission screen and assessed needs for transition planning. The primary care provider role and services were explained and emotional support was provided. Chief Complaint: Chest Pain Prior Living Arrangements What was your living situation prior to admission/observation?: Other (Comment) ([facility]) (08/15/231335) Living Quarters: [facility] (08/15/231335) Number of steps to enter living quarters:: 0 (08/15/231335) Do you have serious difficulty walking or climbing stairs? (5 years old or older): Yes (08/15/23 06) History of falling: No (08/15/23 0405) Prior Level of Functioning Describe the patient's ability prior to admission/observation to perform ADLs: Requires assistance (08/15/231335) Requires assistance with: Dressing;Toileting;Bathing;Grooming (08/15/231335) Describe the patient's mobility status prior to admission: Patient requires assistance with ambulation (08/15/231335) Patient uses assistive device: Yes (08/15/231335) If yes, choose:: Walker (08/15/231335) Caregiver Information Patient Contacts Name Relation Home Work Mobile ALEISHA DOW Other - (no specific identity) [phone] Jane Pineda Sibling [phone] Thao Hussein Friend [phone] Patient to [facility] 08/14 with diagnosis of chest pain. Prior to admission patient was at [facility] rehab. Patient requires assistance with ADL's and IADL's and facility or family provides transportation to appointments. Patient declining start ratings for care home facilities and shares she would like to return to [facility] on DC. Spoke with [facility] and patient is not a bed hold but they will have a bed for her on Sunday and can accept her back at that time. Patient wears oxygen at 2 LPM continuously per patient. Transportation to be determined but more than likely will need to be by medical transport. Risk Stratification/Psychosocial/Care Gaps Risk Stratification Psycho Social / Medical Concerns Identified: Adjustment to illness/injury (08/15/231335) Accessed [facility] to connect patients to social care resources: No (08/15/231335) OBRA or OPTIONS needed for placement: No (08/15/231335) Readmission Risk Score: 27.61 (08/15/23 1200) Prior to Admission Services Services Prior to Admission COBBLER APPRENTICE Services (Services received within the last 30 days with exception, Psych within last two years): Durable Medical Equipment (08/15/231335) COBBLER APPRENTICE Durable Medical Equipment (DME) in home: Oxygen (name) - Comment;Walker Rolling (08/15/231335) [place] Dept[place] of [employer]ging (PDA) Waiver Program: N/A (08/15/231335) COBBLER APPRENTICE Transportation (Services received within the last 30 days): Facility Transportation (08/15/231335) Outpatient Weekday Babysitter: No care support team member to display Patient/Family Expectations: return to [facility] as previously For further screening information, please refer to the Care Management flow document. * Medical Necessity - Danica Medina RN - 08/15/2023 6:11 AM EDT AdmissionCare Guideline: Chest Pain - OBS, Observation Based on the indications selected for the patient, the bed status of Observation was determined to be MET The following indications were selected as present at the time of evaluation of the patient: - Other aspect of patient presentation indicative of need for monitoring or testing beyond emergency department treatment time frame (eg, concern for arrhythmia) AdmissionCare documentation entered by: Danica Medina [facility] [place] [facility] [employer], 27th edition, Copyright 2022 [facility] [place] [employer] All Rights Reserved. [id number]:11:30-04:00 Solely for purpose of utilization review and payment; not a diagnostic tool * ED Sea Captain Note - Zoraida Thomas RN - 08/15/2023 4:10 AM EDT Patient presents via EMS from [facility]. Patient reports that she developed chest pain yesterday. States that the pain started after the staff made her walk yesterday. Patient states that she is not to be putting weight on her foot and the staff made her ambulate yesterday. Mid sternal chest pain that radiates into the R shoulder/arm. Mild SOB. Patient appear anxious, she is upset that she is in the SNF and has not been home in months due to health issues. Patient recently had surgery on the R foot for osteomyelitis and is receiving IV abx through her PICC line. documented in this encounter Plan of Treatment Upcoming Encounters Date Type Department Care Team (Late st Contact Info) Description 08/31/2023 10:20 AM EDT Office Visit Infectious Disease [address] [phone] Ricky Carnes MD [address] [place] [address] Health Maintenance Due Date Last [...] 06/02/2023, 11/10, 01/22/2018, Additional history exists GFR 02/20/2024 08/21/2023, 08/10, 08/19/2023, Additional history exists TSH 06/26/2024 06/27/2023, 04/0 07/2023, 06/02/2023, Additional history exists Hgb 08/20/2024 08/21/2023, 08/10, 08/19/2023, Additional history exists Phosphate 08/20/2024 08/21/2023, 06/10, 06/24/2023, Additional history exists GARDASIL-HPV IMMUNIZATION SERIES Aged [...] Comments GLUCOSE METER, POINT OF CARE SUAD 08/21/2023 11:26 AM EDT GLUCOSE METER, POINT OF CARE SUAD 08/21/2023 7:41 AM EDT BASIC METABOLIC PANEL Routine 08/21/2023 5:10 AM EDT PHOSPHORUS Routine 08/21/2023 5:10 AM EDT CBC Routine 08/21/2023 5:10 AM EDT MAGNESIUM Routine 08/21/2023 5:10 AM EDT GLUCOSE METER, POINT OF CARE SUAD 08/20/2023 9:23 PM EDT GLUCOSE METER, POINT OF CARE SUAD 08/20/2023 4:40 PM EDT URINALYSIS, REFLEX TO CULTURE STAT 08/20/2023 12:07 PM EDT URINALYSIS, REFLEX TO CULTURE (CUP ONLY) STAT 08/20/2023 12:07 PM EDT URINALYSIS, REFLEX TO CULTURE (NOT FOR NEUTROPENIC PATIENTS) STAT 08/20/2023 12:07 PM EDT CULTURE, URINE, QUANTITATIVE STAT 08/20/2023 12:07 PM EDT RESPIRATORY PATHOGEN PANEL, PCR STAT 08/20/2023 11:51 AM EDT GLUCOSE METER, POINT OF CARE SUAD 08/20/2023 11:20 AM EDT GLUCOSE METER, POINT OF CARE SUAD 08/20/2023 9:08 AM EDT BASIC METABOLIC PANEL Routine 08/20/2023 6:52 AM EDT CBC Routine 08/20/2023 6:52 AM EDT GLUCOSE METER, POINT OF CARE SUAD 08/19/2023 9:18 PM EDT XR CHEST 1 VIEW Routine 08/19/2023 6:33 PM EDT Other nonspecific abnormal finding of lung field Other specified symptoms and signs involving the circulatory and respiratory systems Cough, unspecified GLUCOSE METER, POINT OF CARE SUAD 08/19/2023 4:15 PM EDT GLUCOSE METER, POINT OF CARE SUAD 08/19/2023 11:31 AM EDT GLUCOSE METER, POINT OF CARE SUAD 08/19/2023 7:47 AM EDT BASIC METABOLIC PANEL Routine 08/19/2023 6:46 AM EDT CBC Routine 08/19/2023 6:46 AM EDT GLUCOSE METER, POINT OF CARE SUAD 08/18/2023 9:31 PM EDT GLUCOSE METER, POINT OF CARE SUAD 08/18/2023 4:39 PM EDT GLUCOSE METER, POINT OF CARE SUAD 08/18/2023 11:42 AM EDT GLUCOSE METER, POINT OF CARE SUAD 08/18/2023 7:19 AM EDT BASIC METABOLIC PANEL Routine 08/18/2023 6:37 AM EDT ABO/RH STAT 08/18/2023 6:37 AM EDT TYPE AND SCREEN Routine 08/18/2023 6:37 AM EDT CBC Routine 08/18/2023 6:37 AM EDT MAGNESIUM Routine 08/18/2023 6:37 AM EDT GLUCOSE METER, POINT OF CARE SUAD 08/17/2023 9:16 PM EDT GLUCOSE METER, POINT OF CARE SUAD 08/17/2023 4:28 PM EDT GLUCOSE METER, POINT OF CARE SUAD 08/17/2023 12:25 PM EDT GLUCOSE METER, POINT OF CARE SUAD 08/17/2023 11:27 AM EDT GLUCOSE METER, POINT OF CARE SUAD 08/17/2023 7:39 AM EDT BASIC METABOLIC PANEL Routine 08/17/2023 6:18 AM EDT CBC Routine 08/17/2023 6:18 AM EDT MAGNESIUM Routine 08/17/2023 6:18 AM EDT GLUCOSE METER, POINT OF CARE SUAD 08/16/2023 9:11 PM EDT GLUCOSE METER, POINT OF CARE SUAD 08/16/2023 4:53 PM EDT GLUCOSE METER, POINT OF CARE SUAD 08/16/2023 11:48 AM EDT GLUCOSE METER, POINT OF CARE SUAD 08/16/2023 8:03 AM EDT TROPONIN T, HIGH SENSITIVITY Routine 08/16/2023 5:58 AM EDT CRP (INFLAMMATORY MARKER) Add-on 08/16/2023 5:58 AM EDT BASIC METABOLIC PANEL Routine 08/16/2023 5:58 AM EDT ERYTHROCYTE SEDIMENTATION RATE (ESR) Add-on 08/16/2023 5:58 AM EDT CBC Routine 08/16/2023 5:58 AM EDT GLUCOSE METER, POINT OF CARE SUAD 08/15/2023 9:33 PM EDT GLUCOSE METER, POINT OF CARE SUAD 08/15/2023 4:43 PM EDT NM PULMONARY VENTILATION AND PERFUSION STAT 08/15/2023 1:27 PM EDT Other chest pain GLUCOSE METER, POINT OF CARE [facility] 08/15/2023 11:13 AM EDT GLUCOSE METER, POINT OF CARE [facility] 08/15/2023 7:25 AM EDT TROPONIN T, HIGH SENSITIVITY Routine 08/15/2023 4:50 AM EDT BNP (NT-PROBNP) Add-on 08/15/2023 4:50 AM EDT XR CHEST 1 VIEW STAT 08/15/2023 3:54 AM EDT Other nonspecific abnormal finding of lung field Chest pain EXTRA CARTER TOP Routine 08/15/2023 3:50 AM EDT EXTRA TUBES Routine 08/15/2023 3:50 AM EDT EXTRA LIGHT BLUE TOP Routine 08/15/2023 3:47 AM EDT DIFFERENTIAL, AUTOMATED STAT 08/15/2023 3:47 AM EDT TROPONIN T, HIGH SENSITIVITY Routine 08/15/2023 3:47 AM EDT COMPREHENSIVE METABOLIC PANEL STAT 08/15/2023 3:47 AM EDT D-DIMER STAT 08/15/2023 3:47 AM EDT CBC STAT 08/15/2023 3:47 AM EDT CBC STAT 08/15/2023 3:47 AM EDT HC ECG TRACING ONLY STAT 08/15/2023 3 :37 AM EDT Chest pain documented in this encounter Results * (ABNORMAL) GLUCOSE METER, POINT OF CARE (08/21/2023 11:26 AM EDT) Glucose Meter 160(H) 70 - 120 mg/dL 08/21/2023 11:50 AM EDT [facility] Blood Whole blood specimen / Unknown 08/21/2023 11:26 AM EDT 08/21/2023 11:50 AM EDT Richie Escobar [facility] LAB POINT OF CARE TE ST DOCKED DEVICE UNSOLICITED RESULTS Performing Organization Address City/[facility]/ZIP Co de Phone Number [facility] [address] [place] [address] * GLUCOSE METER, POINT OF CARE (08/21/2023 7:41 AM EDT) Glucose Meter 109 70 - 120 mg/dL 08/21/2023 10:09 AM EDT [facility] Blood Whole blood specimen / Unknown 08/21/2023 7:41 AM EDT 08/21/2023 10:09 AM EDT Richie Escobar [facility] LAB POINT OF CARE TE ST DOCKED DEVICE UNSOLICITED RESULTS Performing Organization Address [facility] Co de Phone Number [facility] [address] [place] [address] * (ABNORMAL) CBC (08/21/2023 5:10 AM EDT) WBC 8.16 4.00 - 10.80 K/uL 08/21/2023 5:37 AM EDT LABORATORY GLH RBC 2.60 3.85 - 5.15 M/uL 08/21/2023 5:37 AM EDT LABORATORY GLH HGB 7.5(L) 12.0 - 15.3 g/dL 08/21/2023 5:37 AM EDT LABORATORY GL[facility] HCT 23.6(L) 36.0 - 45.2 % 08/21/2023 5:37 AM EDT LABORATORY GL[facility] MCV 90.8 81.5 - 97.5 fL 08/21/2023 5:37 AM EDT LABORATORY GL[facility] MCH 28.8 27.0 - 34.0 pg 08/21/2023 5:37 AM EDT LABORATORY [facility] MCHC 31.8 32.0 - 36.0 g/dL 08/21/2023 5:37 AM EDT LABORATORY GL RDW 15.7 11.5 - 15.5 % 08/21/2023 5:37 AM EDT LABORATORY GL PLT 294 140 - 400 K/uL 08/21/2023 5:37 AM EDT LABORATORY [facility] MPV 11.1 6.6 - 11.1 fL 08/21/2023 5:37 AM EDT LABORATORY GL nRBCs 0 <=0 /100 WBCs 08/21/2023 5:37 AM EDT LABORATORY GL Blood Venous blood specimen / Unknown Venipuncture / Unknown 08/21/2023 5:10 AM EDT 08/21/2023 5:25 AM EDT Ayana Summers MD LAB BLOOD ORDERABL ES LABORATORY [address] [address] * (ABNORMAL) BASIC METABOLIC PANEL (08/21/2023 5:10 AM EDT) BUN 72(H) 6 - 20 mg/dL 08/21/2023 6:09 AM EDT LABORATORY GL Creatinine 2.0(H) 0.5 - 1.0 mg/dL 08/21/2023 6:09 AM EDT LABORATORY GL Estimated Glomerular Filtration Rate 27(L) >=60 mL/min 08/21/2023 6:09 AM EDT LABORATORY GLH Comment:eGFR is calculated b ased on the CKD-EPI 2020 equation Sodium 134(L) 135 - 146 mmol/L 08/21/2023 6:09 AM EDT LABORATORY GLH Potassium 4.3 3.5 - 5.1 mmol/L 08/21/2023 6:09 AM EDT LABORATORY GLH Chloride 103 98 - 107 mmol/L 08/21/2023 6:09 AM EDT LABORATORY GLH CO2 21(L) 22 - 32 mmol/L 08/21/2023 6:09 AM EDT LABORATORY GLH Anion Gap 10 7 - 15 mmol/L 08/21/2023 6:09 AM EDT LABORATORY GL Glucose 133(H) 70 - 120 mg/dL 08/21/2023 6:09 AM EDT LABORATORY GLH Calcium 8.3(L) 8.4 - 10.2 mg/dL 08/21/2023 6:09 AM EDT LABORATORY GLH Blood Venous blood specimen / Unknown Venipuncture / Unknown 08/21/2023 5:10 AM EDT 08/21/2023 5:25 AM EDT Ayana Summers MD LAB BLOOD ORDERABL ES Performing Organization Address City/[facility]/ZIP Co de Phone Number LABORATORY [address] [phone] * PHOSPHORUS (08/21/2023 5:10 AM EDT) Phosphorus 4.6 2.5 - 4.8 mg/dL 08/21/2023 6:09 AM EDT LABORATORY GL Blood Venous blood specimen / Unknown Venipuncture / Unknown 08/21/2023 5:10 AM EDT 08/21/2023 5:25 AM EDT Ayana Summers MD LAB BLOOD ORDERABL ES Performing Organization Address City/[facility]/ZIP Co de Phone Number LABORATORY [address] [phone] * MAGNESIUM (08/21/2023 5:10 AM EDT) Magnesium 1.6 1.5 - 2.6 mg/dL 08/21/2023 6:09 AM EDT LABORATORY GL Blood Venous blood specimen / Unknown Venipuncture / Unknown 08/21/2023 5:10 AM EDT 08/21/2023 5:25 AM EDT Ayana Summers MD LAB BLOOD ORDERABL ES Performing Organization Address City/[facility]/ZIP Co de Phone Number LABORATORY [address] [address] * (ABNORMAL) GLUCOSE METER, POINT OF CARE (08/20/2023 9:23 PM EDT) Glucose Meter 182(H) 70 - 120 mg/dL 08/20/2023 9:32 PM EDT [facility] Blood Whole blood specimen / Unknown 08/20/2023 9:23 PM EDT 08/20/2023 9:32 PM EDT Ayana Summers MD LAB POINT OF CARE TEST DOCKED DEVICE UNSOLICITED RESULTS Performing Organization Address [facility]/ZIP Co de Phone Number [facility] [address] [place] [address] * (ABNORMAL) GLUCOSE METER, POINT OF CARE (08/20/2023 4:40 PM EDT) Glucose Meter 158(H) 70 - 120 mg/dL 08/20/2023 4:44 PM EDT [facility] Blood Whole blood specimen / Unknown 08/20/2023 4:40 PM EDT 08/20/2023 4:44 PM EDT Ayana Summers MD LAB POINT OF CARE TEST DOCKED DEVICE UNSOLICITED RESULTS Performing Organization Address [facility] Co de Phone Number [facility] [address] [place] [address] * CULTURE, URINE, QUANTITATIVE (08/20/2023 12:07 PM EDT) Culture Growth No significant growth 08/21/2023 2:55 PM EDT [facility] [place] Urine specimen obtained by clean catch procedure / Unknown Non-blood Collection / Unknown 08/20/2023 12:07 PM EDT 08/20/2023 12:15 PM EDT Deng Ness DO [facility] MICRO - GENERAL ORDERABLES Performing Organization Address City/[facility]/ZIP Co de Phone Number [facility]ATORY [facility] [place] [address] [place] [address] * (ABNORMAL) URINALYSIS, REFLEX TO CULTURE (08/20/2023 12:07 PM EDT) Color, Urine Yellow Light Yellow, Yellow, Dark Yellow 08/20/2023 12:35 PM EDT LABORATORY [facility] Clarity, Urine Clear Clear 08/20/2023 12:35 PM EDT LABORATORY [facility] Glucose, Urine 250(A) Negative mg/dL 08/20/2023 12:35 PM EDT LABORATORY [facility] Bilirubin, Urine Negative Negative 08/20/2023 12:35 PM EDT LABORATORY [facility] Ketone, Urine Negative Negative mg/dL 08/20/2023 12:35 PM EDT LABORATORY [facility] Specific [employer], Urine 1.018 1.003 - 1.030 08/20/2023 12:35 PM EDT LABORATORY [facility] Blood, Urine Moderate(A) Negative 08/20/2023 12:35 PM EDT LABORATORY [facility] pH, Urine 6.5 5.0 - 7.5 Units 08/20/2023 12:35 PM EDT LABORATORY [facility] Protein, Urine >=300(A) Negative mg/dL 08/20/2023 12:35 PM EDT LABORATORY [facility] Urobilinogen, Urine 0.2 0.2, 1.0 mg/dL 08/20/2023 12:35 PM EDT LABORATORY [facility] Nitrite, Urine Negative Negative 08/20/2023 12:35 PM EDT LABORATORY [facility] Esterase, Urine Negative Negative 08/20/2023 12:35 PM EDT LABORATORY [facility] RBC, Urine 50+(A) 0 - 2 /HPF 08/20/2023 12:35 PM EDT LABORATORY [facility] WBC, Urine 0-2 0 - 2 /HPF 08/20/2023 12:35 PM EDT LABORATORY [facility] Bacteria, Urine 51-100(A) 0 - 25 /HPF 08/20/2023 12:35 PM EDT LABORATORY [facility] Culture, Urine 08/20/2023 12:35 PM EDT LABORATORY [facility] Comment:Quantitative urine c ulture to be performed Urine Urine specimen obtained by clean catch procedure / Unknown Non-blood Collection / Unknown 08/20/2023 12:07 PM EDT 08/20/2023 12:15 PM EDT Deng Ness DO LAB URINE ORDERABLE S Performing Organization Address City/[facility]/ZIP Co de Phone Number LABORATORY [address] [phone] * URINALYSIS, REFLEX TO CULTURE (CUP ONLY) (08/20/2023 12:07 PM EDT) Pathologist [facility] Urinalysis, Reflex to Culture Specimen Specimen collected and received 08/20/2023 6:02 PM EDT LABORATORY [facility] Urine Urine specimen obtained by clean catch procedure / Unknown Non-blood Collection / Unknown 08/20/2023 12:07 PM EDT 08/20/2023 4:46 PM EDT [facility] URINE ORDERABLE S Performing Organization Address [facility]/ZIP Co de Phone Number LABORATORY [address] [address] * (ABNORMAL) RESPIRATORY PATHOGEN PANEL, PCR (08/20/2023 11:51 AM EDT) Pathologist [facility] Adenovirus by PCR Negative Negative 024 12:45 PM EDT LABORATORY [facility] Coronavirus 229E by PCR Negative Negative 08/20/2023 12:45 PM EDT LABORATORY [facility] Coronavirus HKU1 by PCR Negative Negative 08/20/2023 12:45 PM EDT LABORATORY [facility] Coronavirus NL63 by PCR Negative Negative 08/20/2023 12:45 PM EDT LABORATORY [facility] Coronavirus OC43 by PCR Negative Negative 08/20/2023 12:45 PM EDT LABORATORY [facility] Coronavirus SARS-CoV-2 by PCR Negative Negative 08/20/2023 12:45 PM EDT LABORATORY [facility] Human Metapneumovirus by PCR Negative Negative 08/20/2023 12:45 PM EDT LABORATORY [facility] Rhinovirus/Enterov irus by PCR Positive(A) Negative 08/20/2023 12:45 PM EDT LABORATORY [facility] Comment: Rhinovirus/Enterovirus detected by PCR (amplified probe). Influenza A Virus by PCR Negative Negative 08/20/2023 12:45 PM EDT LABORATORY [facility] Influenza B Virus by PCR Negative Negative 08/20/2023 12:45 PM EDT LABORATORY [facility] Parainfluenza Virus 1 by PCR Negative Negative 08/20/2023 12:45 PM EDT LABORATORY [facility] Parainfluenza Virus 2 by PCR Negative Negative 08/20/2023 12:45 PM EDT LABORATORY [facility] Parainfluenza Virus 3 by PCR Negative Negative 08/20/2023 12:45 PM EDT LABORATORY [facility] Parainfluenza Virus 4 by PCR Negative Negative 08/20/2023 12:45 PM EDT LABORATORY [facility] Respiratory Syncytial Virus by PCR Negative Negative 08/20/2023 12:45 PM EDT LABORATORY [facility] Bordetella pertussis by PCR Negative Negative 08/20/2023 12:45 PM EDT LABORATORY [facility] Chlamydia pneumoniae by PCR Negative Negative 08/20/2023 12:45 PM EDT LABORATORY [facility] Mycoplasma pneumoniae by PCR Negative Negative 08/20/2023 12:45 PM EDT LABORATORY [facility] Bordetella parapertussis by PCR Negative Negative 08/20/2023 12:45 PM EDT LABORATORY [facility] Comment: The primers that detect Rhinovirus may cross react with some Enterorviruses. The validation of bronchial specimens, tracheal aspirates, and throats for this assay was developed and performance characteristics determined by [employer]. The validation of alternate specimen types has not been cleared or approved by the U.S. Food and Drug Administration (FDA). It has been determined that such clearance or approval is not necessary. Upper Respiratory Mid-turbinate nasal swab / Unknown Non-blood Collection / Unknown 08/20/2023 11:51 AM EDT 08/20/2023 11:55 AM EDT Ayana Summers MD LAB MICRO - GENERA L ORDERABLES LABORATORY [address] [address] * (ABNORMAL) GLUCOSE METER, POINT OF CARE (08/20/2023 11:20 AM EDT) Glucose Meter 187(H) 70 - 120 mg/dL 08/20/2023 11:46 AM EDT [facility] Blood Whole blood specimen / Unknown 08/20/2023 11:20 AM EDT 08/20/2023 11:46 AM EDT Ayana Summers MD LAB POINT OF CARE TEST DOCKED DEVICE UNSOLICITED RESULTS Performing Organization Address [facility] Co de Phone Number [facility] [address] [place] [address] * (ABNORMAL) GLUCOSE METER, POINT OF CARE (08/20/2023 9:08 AM EDT) Glucose Meter 238(H) 70 - 120 mg/dL 08/20/2023 9:12 AM EDT [facility] Blood Whole blood specimen / Unknown 08/20/2023 9:08 AM EDT 08/20/2023 9:12 AM EDT Ayana Summers MD LAB POINT OF CARE TEST DOCKED DEVICE UNSOLICITED RESULTS Performing Organization Address [facility] de Phone Number [facility] [address] [place] [address] * (ABNORMAL) CBC (08/20/2023 6:52 AM EDT) WBC 8.89 4.00 - 10.80 K/uL 08/20/2023 7:36 AM EDT LABORATORY GL[facility] RBC 2.84 3.85 - 5.15 M/uL 08/20/2023 7:36 AM EDT LABORATORY GL[facility] HGB 8.1(L) 12.0 - 15.3 g/dL 08/20/2023 7:36 AM EDT LABORATORY GL[facility] HCT 25.3(L) 36.0 - 45.2 % 08/20/2023 7:36 AM EDT LABORATORY GL[facility] MCV 89.1 81.5 - 97.5 fL 08/20/2023 7:36 AM EDT LABORATORY GL[facility] MCH 28.5 27.0 - 34.0 pg 08/20/2023 7:36 AM EDT LABORATORY GL[facility] MCHC 32.0 32.0 - 36.0 g/dL 08/20/2023 7:36 AM EDT LABORATORY GL[facility] RDW 15.5 11.5 - 15.5 % 08/20/2023 7:36 AM EDT LABORATORY GLH PLT 325 140 - 400 K/uL 08/20/2023 7:36 AM EDT LABORATORY GL MPV 11.0 6.6 - 11.1 fL 08/20/2023 7:36 AM EDT LABORATORY GL nRBCs 0 <=0 /100 WBCs 08/20/2023 7:36 AM EDT LABORATORY GL Blood Venous blood specimen / Unknown Venipuncture / Unknown 08/20/2023 6:52 AM EDT 08/20/2023 7:06 AM EDT Richie Melendez DO LAB BLOOD ORDERABLES LABORATORY [facility] [address] [place] [address] * (ABNORMAL) BASIC METABOLIC PANEL (08/20/2023 6:52 AM EDT) BUN 69(H) 6 - 20 mg/dL 08/20/2023 7:32 AM EDT LABORATORY GLH Creatinine 1.9(H) 0.5 - 1.0 mg/dL 08/20/2023 7:32 AM EDT LABORATORY GL Estimated Glomerular Filtration Rate 29(L) >=60 mL/min 08/20/2023 7:32 AM EDT LABORATORY GL Comment:eGFR is calculated b ased on the CKD-EPI 2020 equation Sodium 134(L) 135 - 146 mmol/L 08/20/2023 7:32 AM EDT LABORATORY GLH Potassium 4.4 3.5 - 5.1 mmol/L 08/20/2023 7:32 AM EDT LABORATORY GL[facility] Chloride 100 98 - 107 mmol/L 08/20/2023 7:32 AM EDT LABORATORY GL[facility] CO2 21(L) 22 - 32 mmol/L 08/20/2023 7:32 AM EDT LABORATORY GL[facility] Anion Gap 13 7 - 15 mmol/L 08/20/2023 7:32 AM EDT LABORATORY GL Glucose 170(H) 70 - 120 mg/dL 08/20/2023 7:32 AM EDT LABORATORY GLH Calcium 8.7 8.4 - 10.2 mg/dL 08/20/2023 7:32 AM EDT LABORATORY GL Blood Venous blood specimen / Unknown Venipuncture / Unknown 08/20/2023 6:52 AM EDT 08/20/2023 7:06 AM EDT Richie Escobar Al KRISHNAN LAB BLOOD ORDERABLES Performing Organization Address [facility] Co de Phone Number LABORATORY [facility] [address], [place] [phone] * (ABNORMAL) GLUCOSE METER, POINT OF CARE (08/19/2023 9:18 PM EDT) [facility] Signature Glucose Meter 208(H) 70 - 120 mg/dL 08/19/2023 9:29 PM EDT [facility] Blood Whole blood specimen / Unknown 08/19/2023 9:18 PM EDT 08/19/2023 9:29 PM EDT Richie Rodriguezcharanjit KRISHNAN LAB POINT OF CARE TE ST DOCKED DEVICE UNSOLICITED RESULTS Performing Organization Address [facility] de Phone Number [facility] [address] [place] [address] * XR CHEST 1 VIEW (08/19/2023 6:33 PM EDT) Anatomical Region Laterality Modality Chest Digital Radiogra phy 08/19/2023 5:58 PM EDT Impressions 08/19/2023 7:40 PM EDT IMPRESSION: 1. No focal infiltrates are identified. 2. 2.8 x 2.8 cm right suprahilar opacity again seen, present on prior examinations dating back to 06/06/23. The differential diagnoses include, but are not limited to, prominent azygous vein, prominent right pulmonary artery, and lymph node(s). If clinically indicated, a chest CT may be obtained for further evaluation. 3. Additional nonacute/incidental findings as described above. THIS DOCUMENT HAS BEEN ELECTRONICALLY SIGNED BY WILTON SCOTT MD Narrative 08/19/2023 7:40 PM EDT PROCEDURE INFORMATION: Exam: XR Chest Exam date and time: 08/19/2023 5:58 PM Age: 63 years old Clinical indication: Other: Increased cough and congestion TECHNIQUE: Imaging protocol: Radiologic exam of the chest. Views: 1 view. COMPARISON: 1. DX XR CHEST 1 VIEW 08/15/2023 3:46 AM 2. DX XR CHEST 1 VIEW 06/06/2023 12:20 PM FINDINGS: Tubes, catheters and devices: Overlying EKG leads noted. Catheter in the right arm with tip at the right axilla again partially seen. Lungs: Decreased lung volumes bilaterally secondary to incomplete inspiration. Subsegmental atelectasis versus scarring in the left lower lung zone again seen. 2.8 x 2.8 cm right suprahilar opacity again seen, present on prior examinations dating back to 06/06/23. Pleural spaces: Unremarkable. No pleural effusion. No pneumothorax. Heart/Mediastinum: Stable mild cardiomegaly. Vasculature: Aortic arch calcifications, as before. Bones/joints: Diffuse age related osteopenia and degenerative changes, as before. Soft tissues: Large amount of subcutaneous fat consistent with obesity. Procedure Note Wilton Scott MD - 08/19/2023 PROCEDURE INFORMATION: Exam: XR Chest Exam date and time: 08/19/2023 5:58 PM Age: 63 years old Clinical indication: Other: Increased cough and congestion TECHNIQUE: Imaging protocol: Radiologic exam of the chest. Views: 1 view. COMPARISON: 1. DX XR CHEST 1 VIEW 08/15/2023 3:46 AM 2. DX XR CHEST 1 VIEW 06/06/2023 12:20 PM FINDINGS: Tubes, catheters and devices: Overlying EKG leads noted. Catheter in theright arm with tip at the right axilla again partially seen. Lungs: Decreased lung volumes bilaterally secondary to incompleteinspiration. Subsegmental atelectasis versus scarring in the left lower lung zone again seen. 2.8 x 2.8 cm right suprahilar opacity again seen, present on prior examinations dating back to 06/06/23. Pleural spaces: Unremarkable. No pleural effusion. No pneumothorax. Heart/Mediastinum: Stable mild cardiomegaly. Vasculature: Aortic arch calcifications, as before. Bones/joints: Diffuse age related osteopenia and degenerative changes, as before. Soft tissues: Large amount of subcutaneous fat consistent with obesity. IMPRESSION IMPRESSION: 1. No focal infiltrates are identified. 2. 2.8 x 2.8 cm right suprahilar opacity again seen, present on prior examinations dating back to 06/06/23. The differential diagnoses include,but are not limited to, prominent azygous vein, prominent right pulmonaryartery, and lymph node(s). If clinically indicated, a chest CT may be obtained for further evaluation. 3. Additional nonacute/incidental findings as described above. THIS DOCUMENT HAS BEEN ELECTRONICALLY SIGNED BY WILTON SCOTT MD Richie Melendez DO RADIOLOGY (RAD GENER AL) * (ABNORMAL) GLUCOSE METER, POINT OF CARE (08/19/2023 4:15 PM EDT) Glucose Meter 184(H) 70 - 120 mg/dL 08/19/2023 4:24 PM EDT [facility] Blood Whole blood specimen / Unknown 08/19/2023 4:15 PM EDT 08/19/2023 4:24 PM EDT Richie Melendez DO LAB POINT OF CARE TE ST DOCKED DEVICE UNSOLICITED RESULTS Performing Organization Address City/[facility]/ZIP Co de Phone Number [facility] [address] [place] [address] * (ABNORMAL) GLUCOSE METER, POINT OF CARE (08/19/2023 11:31 AM EDT) Glucose Meter 183(H) 70 - 120 mg/dL 08/19/2023 12:04 PM EDT [facility] Blood Whole blood specimen / Unknown 08/19/2023 11:31 AM EDT 08/19/2023 12:04 PM EDT Richie Melendez LAB POINT OF CARE TE ST DOCKED DEVICE UNSOLICITED RESULTS Performing Organization Address City/[facility] Co de Phone Number [facility] [address] [place] [address] * (ABNORMAL) GLUCOSE METER, POINT OF CARE (08/19/2023 7:47 AM EDT) Glucose Meter 154(H) 70 - 120 mg/dL 08/19/2023 8:12 AM EDT [facility] Blood Whole blood specimen / Unknown 08/19/2023 7:47 AM EDT 08/19/2023 8:12 AM EDT Richie Melendez DO LAB POINT OF CARE TE ST DOCKED DEVICE UNSOLICITED RESULTS [facility] [address] [facility] [place] [address] * (ABNORMAL) CBC (08/19/2023 6:46 AM EDT) WBC 9.32 4.00 - 10.80 K/uL 08/19/2023 7:24 AM EDT LABORATORY GL RBC 2.88 3.85 - 5.15 M/uL 08/19/2023 7:24 AM EDT LABORATORY [facility] HGB 8.3(L) 12.0 - 15.3 g/dL 08/19/2023 7:24 AM EDT LABORATORY GL HCT 25.9(L) 36.0 - 45.2 % 08/19/2023 7:24 AM EDT LABORATORY GL MCV 89.9 81.5 - 97.5 fL 08/19/2023 7:24 AM EDT LABORATORY GL MCH 28.8 27.0 - 34.0 pg 08/19/2023 7:24 AM EDT [facility]ATORY [facility] MCHC 32.0 32.0 - 36.0 g/dL 08/19/2023 7:24 AM EDT [facility] [facility] RDW 15.5 11.5 - 15.5 % 08/19/2023 7:24 AM EDT LABORATORY GL PLT 314 140 - 400 K/uL 08/19/2023 7:24 AM EDT LABORATORY [facility] MPV 11.1 6.6 - 11.1 fL 08/19/2023 7:24 AM EDT LABORATORY GL nRBCs 0 <=0 /100 WBCs 08/19/2023 7:24 AM EDT LABORATORY GL Blood Venous blood specimen / Unknown Venipuncture / Unknown 08/19/2023 6:46 AM EDT 08/19/2023 7:19 AM EDT Ayana Summers MD LAB BLOOD ORDERABL ES Performing Organization Address City/[facility]/ZIP Co de Phone Number LABORATORY GL [address] [place] [address] * (ABNORMAL) BASIC METABOLIC PANEL (08/19/2023 6:46 AM EDT) BUN 68(H) 6 - 20 mg/dL 08/19/2023 7:41 AM EDT LABORATORY GLH Creatinine 1.9(H) 0.5 - 1.0 mg/dL 08/19/2023 7:41 AM EDT LABORATORY GLH Estimated Glomerular Filtration Rate 29(L) >=60 mL/min 08/19/2023 7:41 AM EDT LABORATORY GLH Comment:eGFR is calculated b ased on the CKD-EPI 2020 equation Sodium 135 135 - 146 mmol/L 08/19/2023 7:41 AM EDT LABORATORY GLH Potassium 4.5 3.5 - 5.1 mmol/L 08/19/2023 7:41 AM EDT LABORATORY GLH Chloride 102 98 - 107 mmol/L 08/19/2023 7:41 AM EDT LABORATORY GLH CO2 21(L) 22 - 32 mmol/L 08/19/2023 7:41 AM EDT LABORATORY GLH Anion Gap 12 7 - 15 mmol/L 08/19/2023 7:41 AM EDT LABORATORY GLH Glucose 172(H) 70 - 120 mg/dL 08/19/2023 7:41 AM EDT LABORATORY GLH Calcium 8.6 8.4 - 10.2 mg/dL 08/19/2023 7:41 AM EDT LABORATORY GLH Blood Venous blood specimen / Unknown Venipuncture / Unknown 08/19/2023 6:46 AM EDT 08/19/2023 7:19 AM EDT Ayana Summers MD LAB BLOOD ORDERABL ES LABORATORY GL [address] [place] [address] * (ABNORMAL) GLUCOSE METER, POINT OF CARE (08/18/2023 9:31 PM EDT) Glucose Meter 177(H) 70 - 120 mg/dL 08/18/2023 9:49 PM EDT [facility] LABORATORY Blood Whole blood specimen / Unknown 08/18/2023 9:31 PM EDT 08/18/2023 9:49 PM EDT Ayana Summers MD LAB POINT OF CARE TEST DOCKED DEVICE UNSOLICITED RESULTS Performing Organization Address [facility] Co de Phone Number [facility] LABORATORY [address] [place] [address] * (ABNORMAL) GLUCOSE METER, POINT OF CARE (08/18/2023 4:39 PM EDT) Glucose Meter 192(H) 70 - 120 mg/dL 08/18/2023 5:02 PM EDT [facility] LABORATORY Blood Whole blood specimen / Unknown 08/18/2023 4:39 PM EDT 08/18/2023 5:02 PM EDT Ayana Summers MD LAB POINT OF CARE TEST DOCKED DEVICE UNSOLICITED RESULTS Performing Organization Address [facility] de Phone Number [facility] LABORATORY [address] [place] [address] * (ABNORMAL) GLUCOSE METER, POINT OF CARE (08/18/2023 11:42 AM EDT) Glucose Meter 139(H) 70 - 120 mg/dL 08/18/2023 11:57 AM EDT [facility] LABORATORY Blood Whole blood specimen / Unknown 08/18/2023 11:42 AM EDT 08/18/2023 11:57 AM EDT Ayana Summers MD LAB POINT OF CARE TEST DOCKED DEVICE UNSOLICITED RESULTS Performing Organization Address [facility] de Phone Number [facility] LABORATORY [address] [place] [address] * GLUCOSE METER, POINT OF CARE (08/18/2023 7:19 AM EDT) Glucose Meter 110 70 - 120 mg/dL 08/18/2023 7:38 AM EDT [facility] LABORATORY Blood Whole blood specimen / Unknown 08/18/2023 7:19 AM EDT 08/18/2023 7:38 AM EDT Ayana Summers MD LAB POINT OF CARE TEST DOCKED DEVICE UNSOLICITED RESULTS Performing Organization Address [facility] Co de Phone Number [facility] LABORATORY [address] [place] [phone] * ABO/RH (08/18/2023 6:37 AM EDT) ABO A 08/18/2023 8:09 AM EDT LABORATORY [facility] BLOOD BANK Rh Positive 08/18/2023 8:09 AM EDT LABORATORY [facility] BLOOD BANK Blood Venous blood specimen / Unknown Venipuncture / Unknown 08/18/2023 6:37 AM EDT 08/18/2023 6:50 AM EDT Ayana Summers MD LAB BLOOD BANK PAULA T ORDERABLES Performing Organization Address [facility] de Phone Number LABORATORY [facility] BLOOD BANK [address] [place] [id number] * TYPE AND SCREEN (08/18/2023 6:37 AM EDT) ABO A 08/18/2023 8:08 AM EDT LABORATORY [facility] BLOOD BANK Rh Positive 08/18/2023 8:08 AM EDT LABORATORY [facility] BLOOD BANK Red Blood Cell Antibody Screen Negative 08/18/2023 8:08 AM EDT LAB[facility]ATORY [facility] BLOOD BANK Specimen Expiration Date 08/21/2023 23:59 08/18/2023 8:08 AM EDT LABORATORY [facility] BLOOD BANK Blood Venous blood specimen / Unknown Venipuncture / Unknown 08/18/2023 6:37 AM EDT 08/18/2023 6:50 AM EDT Ayana Summers MD LAB BLOOD BANK PAULA T ORDERABLES Performing Organization Address City/[facility] Co de Phone Number LABORATORY [facility] BLOOD BANK [address] [place] [address] * MAGNESIUM (08/18/2023 6:37 AM EDT) Pathologist [facility] Magnesium 1.5 1.5 - 2.6 mg/dL 08/18/2023 7:21 AM EDT LABORATORY [facility] Blood Venous blood specimen / Unknown Venipuncture / Unknown 08/18/2023 6:37 AM EDT 08/18/2023 6:50 AM EDT Ayana Summers MD LAB BLOOD ORDERABL ES LABORATORY [address] [address] * (ABNORMAL) CBC (08/18/2023 6:37 AM EDT) [facility] WBC 10.12 4.00 - 10.80 K/uL 08/18/2023 7:02 AM EDT LABORATORY [facility] RBC 2.68 3.85 - 5.15 M/uL 08/18/2023 7:02 AM EDT LABORATORY [facility] HGB 7.6(L) 12.0 - 15.3 g/dL 08/18/2023 7:02 AM EDT LABORATORY [facility] HCT 24.4(L) 36.0 - 45.2 % 08/18/2023 7:02 AM EDT LABORATORY [facility] MCV 91.0 81.5 - 97.5 fL 08/18/2023 7:02 AM EDT LABORATORY [facility] MCH 28.4 27.0 - 34.0 pg 08/18/2023 7:02 AM EDT LABORATORY [facility] MCHC 31.1 32.0 - 36.0 g/dL 08/18/2023 7:02 AM EDT LABORATORY [facility] RDW 15.9 11.5 - 15.5 % 08/18/2023 7:02 AM EDT LABORATORY [facility] PLT 315 140 - 400 K/uL 08/18/2023 7:02 AM EDT LABORATORY [facility] MPV 10.6 6.6 - 11.1 fL 08/18/2023 7:02 AM EDT LABORATORY GLH nRBCs 0 <=0 /100 WBCs 08/18/2023 7:02 AM EDT LABORATORY GLH Blood Venous blood specimen / Unknown Venipuncture / Unknown 08/18/2023 6:37 AM EDT 08/18/2023 6:50 AM EDT Ayana Summers MD LAB BLOOD ORDERABL ES LABORATORY GLH [address] [place] [address] * (ABNORMAL) BASIC METABOLIC PANEL (08/18/2023 6:37 AM EDT) BUN 67(H) 6 - 20 mg/dL 08/18/2023 7:21 AM EDT LABORATORY GLH Creatinine 2.0(H) 0.5 - 1.0 mg/dL 08/18/2023 7:21 AM EDT LABORATORY GLH Estimated Glomerular Filtration Rate 27(L) >=60 mL/min 08/18/2023 7:21 AM EDT LABORATORY GLH Comment:eGFR is calculated b ased on the CKD-EPI 2020 equation Sodium 135 135 - 146 mmol/L 08/18/2023 7:21 AM EDT LABORATORY GLH Potassium 4.7 3.5 - 5.1 mmol/L 08/18/2023 7:21 AM EDT LABORATORY GLH Chloride 106 98 - 107 mmol/L 08/18/2023 7:21 AM EDT LABORATORY GLH CO2 20(L) 22 - 32 mmol/L 08/18/2023 7:21 AM EDT LABORATORY GLH Anion Gap 9 7 - 15 mmol/L 08/18/2023 7:21 AM EDT LABORATORY GLH Glucose 114 70 - 120 mg/dL 08/18/2023 7:21 AM EDT LABORATORY GLH Calcium 8.6 8.4 - 10.2 mg/dL 08/18/2023 7:21 AM EDT LABORATORY GLH Blood Venous blood specimen / Unknown Venipuncture / Unknown 08/18/2023 6:37 AM EDT 08/18/2023 6:50 AM EDT Ayana Summers MD LAB BLOOD ORDERABL ES Performing Organization Address City/[facility]/ZIP Co de Phone Number LABORATORY GL [address] [place] [address] * (ABNORMAL) GLUCOSE METER, POINT OF CARE (08/17/2023 9:16 PM EDT) Glucose Meter 144(H) 70 - 120 mg/dL 08/17/2023 9:26 PM EDT [facility] LABORATORY Blood Whole blood specimen / Unknown 08/17/2023 9:16 PM EDT 08/17/2023 9:26 PM EDT Ayana Summers MD LAB POINT OF CARE TEST DOCKED DEVICE UNSOLICITED RESULTS Performing Organization Address [facility] Co de Phone Number [facility] LABORATORY [address] [place] [phone] * (ABNORMAL) GLUCOSE METER, POINT OF CARE (08/17/2023 4:28 PM EDT) Glucose Meter 176(H) 70 - 120 mg/dL 08/17/2023 4:43 PM EDT [facility] LABORATORY Blood Whole blood specimen / Unknown 08/17/2023 4:28 PM EDT 08/17/2023 4:43 PM EDT Ayana Summers MD LAB POINT OF CARE TEST DOCKED DEVICE UNSOLICITED RESULTS Performing Organization Address [facility] Co de Phone Number [facility] LABORATORY [address] [place] [phone] * (ABNORMAL) GLUCOSE METER, POINT OF CARE (08/17/2023 12:25 PM EDT) Glucose Meter 144(H) 70 - 120 mg/dL 08/17/2023 12:48 PM EDT [facility] LABORATORY Blood Whole blood specimen / Unknown 08/17/2023 12:25 PM EDT 08/17/2023 12:48 PM EDT Ayana Summers MD LAB POINT OF CARE TEST DOCKED DEVICE UNSOLICITED RESULTS Performing Organization Address [facility] Co de Phone Number [facility] LABORATORY [address] [facility] [place] [address] * (ABNORMAL) GLUCOSE METER, POINT OF CARE (08/17/2023 11:27 AM EDT) Glucose Meter 149(H) 70 - 120 mg/dL 08/17/2023 11:30 AM EDT [facility] LABORATORY Blood Whole blood specimen / Unknown 08/17/2023 11:27 AM EDT 08/17/2023 11:30 AM EDT Ayana Summers MD LAB POINT OF CARE TEST DOCKED DEVICE UNSOLICITED RESULTS Performing Organization Address [facility] de Phone Number [facility] LABORATORY [address] [facility] [place] [address] * GLUCOSE METER, POINT OF CARE (08/17/2023 7:39 AM EDT) Glucose Meter 81 70 - 120 mg/dL 08/17/2023 9:15 AM EDT [facility] LABORATORY Blood Whole blood specimen / Unknown 08/17/2023 7:39 AM EDT 08/17/2023 9:15 AM EDT Ayana Summers MD LAB POINT OF CARE TEST DOCKED DEVICE UNSOLICITED RESULTS Performing Organization Address [facility] de Phone Number [facility] LABORATORY [address] [place] [address] * (ABNORMAL) CBC (08/17/2023 6:18 AM EDT) WBC 9.34 4.00 - 10.80 K/uL 08/17/2023 6:46 AM EDT LABORATORY GLH RBC 2.70 3.85 - 5.15 M/uL 08/17/2023 6:46 AM EDT LABORATORY GLH HGB 7.6(L) 12.0 - 15.3 g/dL 08/17/2023 6:46 AM EDT LABORATORY GLH HCT 24.2(L) 36.0 - 45.2 % 08/17/2023 6:46 AM EDT LABORATORY [facility] MCV 89.6 81.5 - 97.5 fL 08/17/2023 6:46 AM EDT LABORATORY [facility] MCH 28.1 27.0 - 34.0 pg 08/17/2023 6:46 AM EDT LABORATORY [facility] MCHC 31.4 32.0 - 36.0 g/dL 08/17/2023 6:46 AM EDT LABORATORY [facility] RDW 15.7 11.5 - 15.5 % 08/17/2023 6:46 AM EDT LABORATORY [facility] PLT 314 140 - 400 K/uL 08/17/2023 6:46 AM EDT LABORATORY [facility] MPV 10.4 6.6 - 11.1 fL 08/17/2023 6:46 AM EDT LABORATORY [facility] nRBCs 0 <=0 /100 WBCs 08/17/2023 6:46 AM EDT LABORATORY [facility] Blood Venous blood specimen / Unknown Venipuncture / Unknown 08/17/2023 6:18 AM EDT 08/17/2023 6:38 AM EDT Ayana Summers MD LAB BLOOD ORDERABL ES Performing Organization Address City/[facility]/ZIP Co de Phone Number LABORATORY [address] [phone] * MAGNESIUM (08/17/2023 6:18 AM EDT) Magnesium 1.6 1.5 - 2.6 mg/dL 08/17/2023 7:17 AM EDT LABORATORY [facility] Blood Venous blood specimen / Unknown Venipuncture / Unknown 08/17/2023 6:18 AM EDT 08/17/2023 6:38 AM EDT Ayana Summers MD LAB BLOOD ORDERABL ES LABORATORY [address] [phone] * (ABNORMAL) BASIC METABOLIC PANEL (08/17/2023 6:18 AM EDT) BUN 62(H) 6 - 20 mg/dL 08/17/2023 7:17 AM EDT LABORATORY GL Creatinine 2.0(H) 0.5 - 1.0 mg/dL 08/17/2023 7:17 AM EDT LABORATORY GLH Estimated Glomerular Filtration Rate 28(L) >=60 mL/min 08/17/2023 7:17 AM EDT LABORATORY GLH Comment:eGFR is calculated b ased on the CKD-EPI 2020 equation Sodium 137 135 - 146 mmol/L 08/17/2023 7:17 AM EDT LABORATORY GLH Potassium 4.8 3.5 - 5.1 mmol/L 08/17/2023 7:17 AM EDT LABORATORY GLH Chloride 105 98 - 107 mmol/L 08/17/2023 7:17 AM EDT LABORATORY GLH CO2 20(L) 22 - 32 mmol/L 08/17/2023 7:17 AM EDT LABORATORY GLH Anion Gap 12 7 - 15 mmol/L 08/17/2023 7:17 AM EDT LABORATORY GLH Glucose 94 70 - 120 mg/dL 08/17/2023 7:17 AM EDT LABORATORY GLH Calcium 8.6 8.4 - 10.2 mg/dL 08/17/2023 7:17 AM EDT LABORATORY GL Blood Venous blood specimen / Unknown Venipuncture / Unknown 08/17/2023 6:18 AM EDT 08/17/2023 6:38 AM EDT Ayana Summers MD LAB BLOOD ORDERABL ES LABORATORY [address] [address] * (ABNORMAL) GLUCOSE METER, POINT OF CARE (08/16/2023 9:11 PM EDT) Glucose Meter 155(H) 70 - 120 mg/dL 08/16/2023 9:22 PM EDT [facility] LABORATORY Blood Whole blood specimen / Unknown 08/16/2023 9:11 PM EDT 08/16/2023 9:22 PM EDT Ayana Summers MD LAB POINT OF CARE TEST DOCKED DEVICE UNSOLICITED RESULTS Performing Organization Address [facility] Co de Phone Number [facility] LABORATORY [address] [place] [address] * (ABNORMAL) GLUCOSE METER, POINT OF CARE (08/16/2023 4:53 PM EDT) Glucose Meter 139(H) 70 - 120 mg/dL 08/16/2023 5:05 PM EDT [facility] LABORATORY Blood Whole blood specimen / Unknown 08/16/2023 4:53 PM EDT 08/16/2023 5:05 PM EDT Ayana Summers MD LAB POINT OF CARE TEST DOCKED DEVICE UNSOLICITED RESULTS Performing Organization Address [facility] Co de Phone Number [facility] LABORATORY [address] [place] [phone] * (ABNORMAL) GLUCOSE METER, POINT OF CARE (08/16/2023 11:48 AM EDT) Glucose Meter 186(H) 70 - 120 mg/dL 08/16/2023 12:01 PM EDT [facility] LABORATORY Blood Whole blood specimen / Unknown 08/16/2023 11:48 AM EDT 08/16/2023 12:01 PM EDT Ayana Summers MD LAB POINT OF CARE TEST DOCKED DEVICE UNSOLICITED RESULTS Performing Organization Address [facility] Co de Phone Number [facility] LABORATORY [address] [place] [address] * GLUCOSE METER, POINT OF CARE (08/16/2023 8:03 AM EDT) Glucose Meter 118 70 - 120 mg/dL 08/16/2023 8:21 AM EDT [facility] LABORATORY Blood Whole blood specimen / Unknown 08/16/2023 8:03 AM EDT 08/16/2023 8:21 AM EDT Ayana Summers MD LAB POINT OF CARE TEST DOCKED DEVICE UNSOLICITED RESULTS [facility] LABORATORY [address] [place] [address] * (ABNORMAL) CRP (INFLAMMATORY MARKER) (08/16/2023 5:58 AM EDT) CRP (Inflammatory Marker) 17(H) <=5 mg/L 08/16/2023 8:53 AM EDT LABORATORY [facility] Blood Venous blood specimen / Unknown Venipuncture / Unknown 08/16/2023 5:58 AM EDT 08/16/2023 6:05 AM EDT Ayana Summers MD LAB BLOOD ORDERABL ES Performing Organization Address City/[facility]/ZIP Co de Phone Number LABORATORY [facility] [address] [place] [address] * (ABNORMAL) ERYTHROCYTE SEDIMENTATION RATE (ESR) (08/16/2023 5:58 AM EDT) Pathologist [facility] ESR 77(H) <30 mm/hour 08/16/2023 1:59 PM EDT LABORATORY [facility] [place] Venous blood specimen / Unknown Venipuncture / Unknown 08/16/2023 5:58 AM EDT 08/16/2023 6:05 AM EDT Ayana Summers MD LAB BLOOD ORDERABL ES LABORATORY [facility] [address] [place] [address] * (ABNORMAL) TROPONIN T, HIGH SENSITIVITY (08/16/2023 5:58 AM EDT) Troponin T, High Sensitivity 151(HH) <=14 ng/L 08/16/2023 6:40 AM EDT LABORATORY [facility] Blood Venous blood specimen / Unknown Venipuncture / Unknown 08/16/2023 5:58 AM EDT 08/16/2023 6:05 AM EDT Alan Lozano PA-C LAB BLOOD ORDERABLES LABORATORY [facility] [address] [place] [address] * (ABNORMAL) BASIC METABOLIC PANEL (08/16/2023 5:58 AM EDT) BUN 62(H) 6 - 20 mg/dL 08/16/2023 6:36 AM EDT LABORATORY GL[facility] Creatinine 2.1(H) 0.5 - 1.0 mg/dL 08/16/2023 6:36 AM EDT LABORATORY GL[facility] Estimated Glomerular Filtration Rate 27(L) >=60 mL/min 08/16/2023 6:36 AM EDT LABORATORY GLH Comment:eGFR is calculated b ased on the CKD-EPI 2020 equation Sodium 136 135 - 146 mmol/L 08/16/2023 6:36 AM EDT LABORATORY GLH Potassium 5.4(H) 3.5 - 5.1 mmol/L 08/16/2023 6:36 AM EDT LABORATORY GLH Chloride 105 98 - 107 mmol/L 08/16/2023 6:36 AM EDT LABORATORY GL[facility] CO2 19(L) 22 - 32 mmol/L 08/16/2023 6:36 AM EDT LABORATORY GL[facility] Anion Gap 12 7 - 15 mmol/L 08/16/2023 6:36 AM EDT LABORATORY GL[facility] Glucose 114 70 - 120 mg/dL 08/16/2023 6:36 AM EDT LABORATORY GL[facility] Calcium 8.7 8.4 - 10.2 mg/dL 08/16/2023 6:36 AM EDT LABORATORY [facility] Blood Venous blood specimen / Unknown Venipuncture / Unknown 08/16/2023 5:58 AM EDT 08/16/2023 6:05 AM EDT Alan Lozano PA-C LAB BLOOD ORDERABLES LABORATORY [facility] [address] [place] [address] * (ABNORMAL) CBC (08/16/2023 5:58 AM EDT) WBC 9.14 4.00 - 10.80 K/uL 08/16/2023 6:12 AM EDT LABORATORY [facility] RBC 3.14 3.85 - 5.15 M/uL 08/16/2023 6:12 AM EDT LABORATORY [facility] HGB 8.7(L) 12.0 - 15.3 g/dL 08/16/2023 6:12 AM EDT LABORATORY [facility] HCT 28.2(L) 36.0 - 45.2 % 08/16/2023 6:12 AM EDT LABORATORY [facility] MCV 89.8 81.5 - 97.5 fL 08/16/2023 6:12 AM EDT LABORATORY [facility] MCH 27.7 27.0 - 34.0 pg 08/16/2023 6:12 AM EDT LABORATORY [facility] MCHC 30.9 32.0 - 36.0 g/dL 08/16/2023 6:12 AM EDT LABORATORY [facility] RDW 15.8 11.5 - 15.5 % 08/16/2023 6:12 AM EDT LABORATORY [facility] PLT 357 140 - 400 K/uL 08/16/2023 6:12 AM EDT LABORATORY [facility] MPV 10.6 6.6 - 11.1 fL 08/16/2023 6:12 AM EDT LABORATORY [facility] nRBCs 0 <=0 /100 WBCs 08/16/2023 6:12 AM EDT LABORATORY [facility] Blood Venous blood specimen / Unknown Venipuncture / Unknown 08/16/2023 5:58 AM EDT 08/16/2023 6:05 AM EDT Alan Lozano PA-C LAB BLOOD ORDERABLES LABORATORY [facility] [address] [place] [address] * (ABNORMAL) GLUCOSE METER, POINT OF CARE (08/15/2023 9:33 PM EDT) [facility] Glucose Meter 171(H) 70 - 120 mg/dL 08/15/2023 11:28 PM EDT [facility] Blood Whole blood specimen / Unknown 08/15/2023 9:33 PM EDT 08/15/2023 11:28 PM EDT Vazquez Romero MD LAB POINT OF CARE TEST DOCKED DEVICE UNSOLICITED RESULTS Performing Organization Address City/[facility] Co de Phone Number [facility]ORY [address] [place] [address] * (ABNORMAL) GLUCOSE METER, POINT OF CARE (08/15/2023 4:43 PM EDT) Glucose Meter 174(H) 70 - 120 mg/dL 08/15/2023 4:57 PM EDT [facility] Blood Whole blood specimen / Unknown 08/15/2023 4:43 PM EDT 08/15/2023 4:57 PM EDT Vazquez Romero MD LAB POINT OF CARE TEST DOCKED DEVICE UNSOLICITED RESULTS Performing Organization Address [facility] de Phone Number [facility] [address] [place] [address] * NM PULMONARY VENTILATION AND PERFUSION (08/15/2023 1:27 PM EDT) Anatomical Region Laterality Modality Lung, Chest Nuclear Medicine 08/15/2023 2:22 PM EDT Impressions 08/15/2023 2:20 PM EDT IMPRESSION Pulmonary embolism absent. Narrative 08/15/2023 2:20 PM EDT EXAM NM PULMONARY VENTILATION AND PERFUSION - 08/15/2023 1:27 pm HISTORY pos ddimer, chest pressure, recent hospitalization and surgery COMPARISON CXR dated 08/15/2023 TECHNIQUE Following the inhalation of 40.1 mCi of Tc-99m diethylenetriamine pentaacetate (DTPA), ventilation images of the chest were acquired in multiple projections. Subsequently, 6.7 mCi of Tc-99m macroaggregated albumin (MAA) was administered intravenously, and perfusion images of the chest were acquired in the same projections. FINDINGS Perfusion images demonstrate homogeneous tracer distribution. No moderate or large segmental perfusion defects. Ventilation images demonstrate relatively homogeneous tracer distribution. No areas of ventilation-perfusion (V/Q) mismatch. Procedure Note Yayo Peñaloza, - 08/15/2023 EXAM NM PULMONARY VENTILATION AND PERFUSION - 08/15/2023 1:27 pm HISTORY pos ddimer, chest pressure, recent hospitalization and surgery COMPARISON CXR dated 08/15/2023 TECHNIQUE Following the inhalation of 40.1 mCi of Tc-99m diethylenetriaminepentaacetate (DTPA), ventilation images of the chest were acquired inmultiple projections. Subsequently, 6.7 mCi of Tc-99m macroaggregated albumin (MAA) wasadministered intravenously, and perfusion images of the chest wereacquired in the same projections. FINDINGS Perfusion images demonstrate homogeneous tracer distribution. No moderateor large segmental perfusion defects. Ventilation images demonstrate relatively homogeneous tracerdistribution. No areas of ventilation-perfusion (V/Q) mismatch. IMPRESSION IMPRESSION Pulmonary embolism absent. Alan Lozano PA-C RAD NUCLEAR MED * (ABNORMAL) GLUCOSE METER, POINT OF CARE (08/15/2023 11:13 AM EDT) Glucose Meter 179(H) 70 - 120 mg/dL 08/15/2023 11:47 AM EDT [facility] Blood Whole blood specimen / Unknown 08/15/2023 11:13 AM EDT 08/15/2023 11:47 AM EDT Vazquez Romero MD LAB POINT OF CARE TEST DOCKED DEVICE UNSOLICITED RESULTS Performing Organization Address [facility] Co de Phone Number [facility] [address] [place] [address] * GLUCOSE METER, POINT OF CARE (08/15/2023 7:25 AM EDT) Glucose Meter 101 70 - 120 mg/dL 08/15/2023 8:08 AM EDT [facility] Blood Whole blood specimen / Unknown 08/15/2023 7:25 AM EDT 08/15/2023 8:08 AM EDT Vazquez Romero MD LAB POINT OF CARE TEST DOCKED DEVICE UNSOLICITED RESULTS Performing Organization Address City/[facility]/ZIP Co de Phone Number [facility] [address] [place] [address] * (ABNORMAL) BNP, NT-PRO (08/15/2023 4:50 AM EDT) BNP, NT-Pro 1,808(H) <300 pg/mL 08/15/2023 5:55 AM EDT LABORATORY [facility] Blood Venous blood specimen / Unknown Venipuncture / Unknown 08/15/2023 4:50 AM EDT 08/15/2023 4:52 AM EDT Narrative LABORATORY [facility] - 08/15/2023 5:55 AM EDT Exclude Heart Failure: <300 pg/mL Diagnose Heart Failure: Age <50 yr: >450 pg/mL 50-75 yr: >900 pg/mL >75 yr: >1800 pg/mL GFR is 30-59 mL/min: >1200 pg/mL or Age-adjusted values GFR <30 mL/min: do not use, not reliable Prognostic threshold: 1000 pg/[facility] S LAB[facility] [address] [address] * (ABNORMAL) TROPONIN T, HIGH SENSITIVITY (08/15/2023 4:50 AM EDT) Pathologist [facility] Troponin T, High Sensitivity 141(HH) <=14 ng/L 08/15/2023 5:17 AM EDT LAB[facility]ATORY [facility] Blood Venous blood specimen / Unknown Venipuncture / Unknown 08/15/2023 4:50 AM EDT 08/15/2023 4:52 AM EDT [facility] [employer] LAB BLOOD ORDERABLE S LABORATORY [address] [address] * XR CHEST 1 VIEW (08/15/2023 3:54 AM EDT) Anatomical Region Laterality Modality Chest Digital Radiogra phy 08/15/2023 3:46 AM EDT Impressions 08/15/2023 4:33 AM EDT IMPRESSION: Stable cardiomegaly with findings most suggestive of pulmonary edema. Differentials for the patchy opacities in the bilateral lower lobe include atelectasis and sequelae of infection. Clinical correlation suggested. THIS DOCUMENT HAS BEEN ELECTRONICALLY SIGNED BY ADAM KING MD Narrative 08/15/2023 4:33 AM EDT PROCEDURE INFORMATION: Exam: XR Chest Exam date and time: 08/15/2023 3:46 AM Age: 63 years old Clinical indication: Other: Chest pain TECHNIQUE: Imaging protocol: Radiologic exam of the chest. Views: 1 view. COMPARISON: DX XR CHEST 1 VIEW 06/17/2023 6:28 PM FINDINGS: Lungs: Increased bilateral interstitial thickening with patchy bilateral lower lobe opacities. Pleural spaces: No pleural effusion. No pneumothorax. Heart/Mediastinum: Cardiomegaly, stable. Bones/joints: No acute findings. Procedure Note Adam King MD - 08/15/2023 PROCEDURE INFORMATION: Exam: XR Chest Exam date and time: 08/15/2023 3:46 AM Age: 63 years old Clinical indication: Other: Chest pain TECHNIQUE: Imaging protocol: Radiologic exam of the chest. Views: 1 view. COMPARISON: DX XR CHEST 1 VIEW 06/17/2023 6:28 PM FINDINGS: Lungs: Increased bilateral interstitial thickening with patchy bilaterallower lobe opacities. Pleural spaces: No pleural effusion. No pneumothorax. Heart/Mediastinum: Cardiomegaly, stable. Bones/joints: No acute findings. IMPRESSION IMPRESSION: Stable cardiomegaly with findings most suggestive of pulmonary edema. Differentials for the patchy opacities in the bilateral lower lobe include atelectasis and sequelae of infection. Clinical correlation suggested. THIS DOCUMENT HAS BEEN ELECTRONICALLY SIGNED BY ADAM KING MD Deng Ness DO RADIOLOGY (RAD [facility]) * EXTRA CARTER TOP (08/15/2023 3:50 AM EDT) Blood Venous blood specimen / Unknown 08/15/2023 3:50 AM EDT 08/15/2023 3:51 AM EDT Deng Ness DO LAB BLOOD ORDERABLE S LABORATORY [address] [address] * (ABNORMAL) D-DIMER (08/15/2023 3:47 AM EDT) [facility] D-Dimer 1.70(H) <0.50 ug/mL FEU 08/15/2023 4:10 AM EDT LABORATORY [facility] Blood Venous blood specimen / Unknown Venipuncture / Unknown 08/15/2023 3:47 AM EDT 08/15/2023 3:50 AM EDT Narrative LABORATORY [facility] - 08/15/2023 4:10 AM EDT Rheumatoid factor at a level above 50 IU/mL may lead to an overestimation of the D-dimer level. A normal D-dimer result (<0.50 ug/mL FEU) has a negative predictive value of approximately 95% for the exclusion of acute pulmonary embolism (PE) or deep vein thrombosis when there is low or moderate pretest PE probability. Increased D-dimer values are abnormal but do not indicate a specific disease state and the D-dimer increase does not definitively correlate with clinical severity of disease. Deng Naylorney DO LAB BLOOD ORDERABLE S Performing Organization Address [facility] de Phone Number LABORATORY [address] [address] * (ABNORMAL) DIFFERENTIAL, AUTOMATED (08/15/2023 3:47 AM EDT) [facility] WBC 10.40 4.00 - 10.80 K/uL 08/15/2023 3:53 AM EDT LABORATORY [facility] Neutrophils % 52.9 40.0 - 75.0 % 08/15/2023 3:53 AM EDT LABORATORY [facility] Lymphocytes % 28.1 18.0 - 42.0 % 08/15/2023 3:53 AM EDT LABORATORY [facility] Monocytes % 8.6 1.0 - 11.0 % 08/15/2023 3:53 AM EDT LABORATORY [facility] Eosinophils % 9.1(H) 0.0 - 6.0 % 08/15/2023 3:53 AM EDT LABORATORY [facility] Basophils % 0.7 0.0 - 2.0 % 08/15/2023 3:53 AM EDT LABORATORY GL Immature Granulocytes % 0.6 0.0 - 2.0 % 08/15/2023 3:53 AM EDT LABORATORY GL Absolute Neutrophils 5.51 1.80 - 7.70 K/uL 08/15/2023 3:53 AM EDT LABORATORY GL Absolute Lymphocytes 2.92 1.00 - 4.80 K/ul 08/15/2023 3:53 AM EDT LABORATORY GL Absolute Monocytes 0.89 0.00 - 1.10 K/uL 08/15/2023 3:53 AM EDT LABORATORY GL Absolute Eosinophils 0.95(H) 0.00 - 0.70 K/uL 08/15/2023 3:53 AM EDT LABORATORY GL Absolute Basophils 0.07 0.00 - 0.20 K/uL 08/15/2023 3:53 AM EDT LABORATORY GL Absolute Immature Granulocytes 0.06 0.00 - 0.20 K/uL 08/15/2023 3:53 AM EDT LABORATORY GL Blood Venous blood specimen / Unknown Venipuncture / Unknown 08/15/2023 3:47 AM EDT 08/15/2023 3:50 AM EDT [facility] LABORATORY [address] [address] * (ABNORMAL) CBC (08/15/2023 3:47 AM EDT) Pathologist [facility] WBC 10.40 4.00 - 10.80 K/uL 08/15/2023 3:53 AM EDT LABORATORY [facility] RBC 2.98 3.85 - 5.15 M/uL 08/15/2023 3:53 AM EDT LABORATORY GL HGB 8.4(L) 12.0 - 15.3 g/dL 08/15/2023 3:53 AM EDT LABORATORY [facility] HCT 27.4(L) 36.0 - 45.2 % 08/15/2023 3:53 AM EDT LABORATORY GL MCV 91.9 81.5 - 97.5 fL 08/15/2023 3:53 AM EDT LABORATORY [facility] MCH 28.2 27.0 - 34.0 pg 08/15/2023 3:53 AM EDT LABORATORY [facility] MCHC 30.7 32.0 - 36.0 g/dL 08/15/2023 3:53 AM EDT LABORATORY [facility] RDW 15.9 11.5 - 15.5 % 08/15/2023 3:53 AM EDT LABORATORY [facility] PLT 349 140 - 400 K/uL 08/15/2023 3:53 AM EDT LABORATORY [facility] MPV 10.3 6.6 - 11.1 fL 08/15/2023 3:53 AM EDT LABORATORY [facility] nRBCs 0 <=0 /100 WBCs 08/15/2023 3:53 AM EDT LABORATORY [facility] Blood Venous blood specimen / Unknown Venipuncture / Unknown 08/15/2023 3:47 AM EDT 08/15/2023 3:50 AM EDT [facility] LAB BLOOD ORDERABLE S Performing Organization Address City/[facility]/ZIP Co de Phone Number LABORATORY [address] [phone] * EXTRA LIGHT BLUE TOP (08/15/2023 3:47 AM EDT) Blood Venous blood specimen / Unknown Venipuncture / Unknown 08/15/2023 3:47 AM EDT 08/15/2023 3:50 AM EDT [facility] LAB BLOOD ORDERABLE S Performing Organization Address City/[facility]/ZIP Co de Phone Number LABORATORY [address] [address] * (ABNORMAL) COMPREHENSIVE METABOLIC PANEL (08/15/2023 3:47 AM EDT) BUN 64(H) 6 - 20 mg/dL 08/15/2023 4:11 AM EDT LABORATORY [facility] Creatinine 2.2(H) 0.5 - 1.0 mg/dL 08/15/2023 4:11 AM EDT LABORATORY GL Estimated Glomerular Filtration Rate 25(L) >=60 mL/min 08/15/2023 4:11 AM EDT LABORATORY [facility] Comment:eGFR is calculated b ased on the CKD-EPI 2020 equation Sodium 133(L) 135 - 146 mmol/L 08/15/2023 4:11 AM EDT LABORATORY [facility] Potassium 5.2(H) 3.5 - 5.1 mmol/L 08/15/2023 4:11 AM EDT LABORATORY [facility] Chloride 105 98 - 107 mmol/L 08/15/2023 4:11 AM EDT LABORATORY [facility] CO2 18(L) 22 - 32 mmol/L 08/15/2023 4:11 AM EDT LABORATORY [facility] Anion Gap 10 7 - 15 mmol/L 08/15/2023 4:11 AM EDT LABORATORY [facility] Glucose 127(H) 70 - 120 mg/dL 08/15/2023 4:11 AM EDT LABORATORY [facility] Albumin 2.2(L) 3.8 - 5.0 g/dL 08/15/2023 4:11 AM EDT LABORATORY [facility] AST 29 10 - 35 U/L 08/15/2023 4:11 AM EDT LABORATORY [facility] Alkaline Phosphatase 173(H) 35 - 130 U/L 08/15/2023 4:11 AM EDT LABORATORY [facility] Bilirubin, Total <0.2 <=1.2 mg/dL 08/15/2023 4:11 AM EDT LABORATORY [facility] Calcium 8.7 8.4 - 10.2 mg/dL 08/15/2023 4:11 AM EDT LABORATORY [facility] Protein 7.2 6.0 - 8.3 g/dL 08/15/2023 4:11 AM EDT LABORATORY [facility] ALT 8(L) 10 - 35 U/L 08/15/2023 4:11 AM EDT LABORATORY [facility] Blood Venous blood specimen / Unknown Venipuncture / Unknown 08/15/2023 3:47 AM EDT 08/15/2023 3:50 AM EDT Deng Ness DO LAB BLOOD ORDERABLE S LABORATORY [facility] [address] [place] [address] * (ABNORMAL) TROPONIN T, HIGH SENSITIVITY (08/15/2023 3:47 AM EDT) Troponin T, High Sensitivity 145(HH) <=14 ng/L 08/15/2023 4:09 AM EDT LABORATORY [facility] Blood Venous blood specimen / Unknown Venipuncture / Unknown 08/15/2023 3:47 AM EDT 08/15/2023 3:50 AM EDT [facility] S Performing Organization Address [facility] Co de Phone Number LABORATORY [address] [address] * EKG (08/15/2023 3:37 AM EDT) 08/15/2023 3:37 AM EDT Narrative Procedure Note Nan Conway MD - 08/15/2023 3:37 AM EDT REASON FOR STUDY: CP CONCLUSIONS: Normal sinus rhythm Right bundle branch block Left anterior fascicular block Bifascicular block Cannot rule out Inferior infarct Abnormal ECG When compared with ECG of 17-Jun-2023 17:49, Significant changes have occurred Ventricular Rate: 74 Atrial Rate: 74 AL Interval: 146 QRS Duration: 140 QT/QTc: 438/486 ms P-R-T [place]: -24 : -69 : 26 degrees Deng Ness DO EKG Performing Organization Address [facility] de Phone Number [facility] CARDIOLOGY documented in this encounter Visit Diagnoses Diagnosis Demand ischemia (HCC)- Primary Other acute and subacute form of ischemic heart disease Chest pain Chest pain, unspecified Acute pulmonary edema (HCC) Acute edema of lung, unspecified Acute on chronic congestive heart failure, unspecified heart failure type (HCC) Hypertensive urgency Unspecified essential hypertension Other nonspecific abnormal finding of lung field Other chest pain Other specified symptoms and signs involving the circulatory and respiratory systems Cough, unspecified Osteomyelitis of right foot, unspecified type (HCC) Osteomyelitis of right foot (HCC) Unspecified osteomyelitis, ankle and foot Moderate pulmonary hypertension (HCC) Hypothyroid Unspecified hypothyroidism Hypertension Unspecified essential hypertension Gastroesophageal reflux disease Esophageal reflux Fibromyalgia Mylagia and myositis, unspecified Ambulatory dysfunction Anxiety Anxiety state, unspecified (HFpEF) heart failure with preserved ejection fraction (HCC) Type 2 diabetes mellitus, with long-term current use of insulin (HCC) Chronic kidney disease, stage IV (severe) (HCC) Chronic kidney disease, Stage IV (severe) Atypical chest pain Other chest pain Acute on chronic heart failure with preserved ejection fraction (HFpEF) (HCC) Morbid obesity (HCC) Morbid obesity Elevated troponin Other abnormal blood chemistry Hyperkalemia Hyperpotassemia Hyponatremia Hyposmolality and/or hyponatremia Hypoalbuminemia Other disorders of plasma protein metabolism Bifascicular bundle branch block Other bilateral bundle branch block Rhinovirus infection Rhinovirus infection in conditions classified elsewhere and of unspecified site documented in this encounter Administered Medications Inactive Administered Medications - up to 3 most recent administrations Medication Order MAR Action Action Date Dose Rate Site Acetaminophen (Tylenol) tab 650 mg 650 mg, Oral, Q6H PRN Pain, Mild, Fever >38C(100.5F), Starting on Sun08/15/23 at 0606, Until Sun08/21/23 at 191, Maximum of 4 grams (4000 mg) per day. Given 08/21/2023 10:10 AM EDT 650 mg Given 08/20/2023 9:47 PM EDT 650 mg Given 08/20/2023 11:05 AM EDT 650 mg albuterol-ipratropium (Duoneb) inhalation solution 3 mL 3 mL, Nebulizer, Q4H PRN Other, Dyspnea, chest congestion, Starting on Sun08/19/23 at 1615, Until Sun08/21/23 at 1919, 3 mL = 0.5 mg ipratropium/ 2.5 mg albuterol Given 08/20/2023 10:02 PM EDT 3 mL amitriptyline (Elavil) tab 100 mg 100 mg, Oral, QHS, First dose on Sun08/15/23 at 2200, Until Discontinued Given 08/20/2023 9:26 PM EDT 100 mg Given 08/19/2023 9:37 PM EDT 100 mg Given 08/18/2023 8:11 PM EDT 100 mg amLODIPine (Norvasc) tab 10 mg 10 mg, Oral, Daily(AM), First dose on Sun08/15/23 at 0900, Until Discontinued Given 08/21/2023 8:05 AM EDT 10 mg Given 08/20/2023 9:55 AM EDT 10 mg Given 08/19/2023 8:25 AM EDT 10 mg Bisacodyl (Dulcolax) supp 10 mg 10 mg, Rectal, DAILY PRN Constipation, Starting on 08/18/23 at 0606, Until Sun08/21/23 at 1919, Administer if no bowel movement within past 72 hours and patient unable to take oral medications. Bisacodyl (Dulcolax) tab 5 mg 5 mg, Oral, DAILY PRN Constipation, Starting on Sun08/18/23 at 0606, Until Sun08/21/23 at 1919, Administer in addition to polyethylene glycol and senna-docusate if no bowel movement in past 72 hours. Bumetanide (Bumex) tab 2 mg 2 mg, Oral, Daily(AM), First dose on Sun08/20/23 at 0930, Until Discontinued Given 08/21/2023 8:07 AM EDT 2 mg Given 08/20/2023 9:55 AM EDT 2 mg ceFAZolin in dextrose (Ancef) ivpb 2 g 2 g, IV Piggyback, Q12H, 14 doses, First dose on Sun08/17/23 at 1015, Last dose on Sun08/23/23 at 2100 New Bag 08/17/2023 12:06 PM EDT 2 g 100 mL/hr Cetirizine (ZyrTEC) tab 10 mg 10 mg, Oral, Daily(AM), First dose on Sun08/20/23 at 1515, Until Discontinued Given 08/21/2023 8:05 AM EDT 10 mg Given 08/20/2023 2:45 PM EDT 10 mg CYANOCOBALAMIN (vitamin B-12) tab 500 mcg 500 mcg, Oral, Daily(AM), First dose on Sun08/21/23 at 0900, Until Discontinued Given 08/21/2023 8:05 AM EDT 500 mcg DAKINS 1/2 strength (0.25%) topical solution Topical, Daily(AM), First dose on Sun08/16/23 at 1045, Until Discontinued, Apply to Rt foot WTD. Given 08/21/2023 8:04 AM EDT Given 08/20/2023 10:49 AM EDT Given 08/19/2023 8:35 AM EDT dextrose 50% inj 25 mL 25 mL, IV Push, PRN Hypoglycemia, Other, For blood glucose 54 - 69 mg/dL or 70 - 100 mg/dL with symptoms AND patient is unresponsive, NPO, OR unable to swallow, Starting on Sun08/15/23 at 0607, Until Sun08/21/23 at 1919, Administer IV. Recheck blood glucose after 15 minutes. Notify provider. dextrose 50% inj 50 mL 50 mL, IV Push, PRN Hypoglycemia, Other, For blood glucose below 54 mg/dL AND patient unresponsive, NPO, OR unable to swallow, Starting on Sun08/15/23 at 0607, Until Sun08/21/23 at 1919, Administer IV. Recheck blood glucose in 15 minutes. Notify provider. diphenhydrAMINE (Benadryl) cap 50 mg 50 mg, Oral, ONCE, On Sun08/16/23 at 0015, For 1 dose Given 08/15/2023 11:55 PM EDT 50 mg Ferrous Sulfate (Feosol) tab 325 mg 325 mg, Oral, DAILY NOON, First dose (after last modification) on Sun08/20/23 at 1515, Until Discontinued, This med should NOT be Crushed or Chewed Given 08/21/2023 12:26 PM EDT 325 mg Given 08/20/2023 2:45 PM EDT 325 mg fluticasone (Flonase) nasal inhaler 2 Hemet 2 Hemet, Each Nostril, Daily(AM), First dose on Sun08/18/23 at 1930, Until Discontinued, 50 mcg / Actuation Given 08/21/2023 8:07 AM EDT 2 Sprays Given 08/20/2023 9:56 AM EDT 2 Sprays Given 08/19/2023 8:26 AM EDT 2 Sprays folic acid tab 1 mg 1 mg, Oral, Daily(AM), First dose on Sun08/21/23 at 0900, Until Discontinued Given 08/21/2023 8:04 AM EDT 1 mg Furosemide (Lasix) inj 100 mg 100 mg, IV Push, BID (0900, 1600), First dose (after last modification) on Sun08/16/23 at 1630, Until Discontinued Given 08/19/2023 2:50 PM EDT 100 mg Given 08/19/2023 8:26 AM EDT 100 mg Given 08/18/2023 4:09 PM EDT 100 mg Furosemide (Lasix) inj 80 mg 80 mg, IV Push, ONCE, On Sun08/15/23 at 0630, For 1 dose Given 08/15/2023 6:01 AM EDT 80 mg Gabapentin (Neurontin) cap 100 mg 100 mg, Oral, TID PRN neuropathicpain, Starting on Sun08/18/23 at 0924, Until Sun08/21/23 at 191 Given 08/20/2023 9:32 PM EDT 100 mg Given 08/19/2023 9:50 PM EDT 100 mg Given 08/18/2023 10:02 PM EDT 100 mg Gabapentin (Neurontin) cap 300 mg 300 mg, Oral, ONCE, On Kristy 08/16/23 at 1015, For 1 dose Given 08/16/2023 10:43 AM EDT 300 mg Gabapentin (Neurontin) cap 300 mg 300 mg, Oral, TID PRN neuropathicpain, Starting on Sun08/17/23 at 0956, Until Sun08/18/23 at 0924 Given 08/17/2023 9:00 PM EDT 300 mg Glucose (Glutose 15) 40 % gel 15 g of glucose 15 g of glucose, Oral, PRN Hypoglycemia (low sugar), Other, For blood glucose 54 - 69 mg/dL or 70 - 100 mg/dL with symptoms AND patient alert WITH difficulty chewing/swallowing, Starting on Sun08/15/23 at 0607, Until Sun08/21/23 at 191, Administer gel. Recheck blood glucose after 15 minutes. Notify provider. 37.5 gram tube = 15 grams glucose = 1 each Glucose (Glutose 15) 40 % gel 30 g of glucose 30 g of glucose, Oral, PRN Hypoglycemia (low sugar), Other, For blood glucose below 54 mg/dL AND patient alert WITH difficulty chewing/swallowing, Starting on Sun08/15/23 at 0607, Until Sun08/21/23 at 191, Administer gel. Recheck blood glucose after 15 minutes. Notify provider. 37.5 gram tube = 15 grams glucose = 1 each glucose chew tab 16 g 16 g, Oral, PRN Hypoglycemia, Other, For blood glucose 54 - 69 mg/dL or 70 - 100 mg/dL with symptoms and patient alert without difficulty chewing/swallowing., Starting on Sun08/15/23 at 0607, Until Sun08/21/23 at 191 guaiFENesin (Robitussin) oral liquid 200 mg 200 mg, Oral, QID PRN Cough, Starting on Sun08/20/23 at 2329, Until Sun08/21/23 at 1918 Given 08/21/2023 12:04 AM EDT 200 mg hEParin inj 7,500 Units 7,500 Units, Subcutaneous, Q8H, First dose (after last modification) on Sun08/15/23 at 1200, Until Discontinued Given 08/21/2023 5:30 AM EDT 7,500 Units Abdomen Left Lower Given 08/20/2023 9:33 PM EDT 7,500 Units A bdomen Right Upper Given 08/20/2023 1:56 PM EDT 7,500 Units A bdomen Right Lower hydrOXYzine HCl tab 50 mg 50 mg, Oral, Q8H PRN Anxiety, Starting on Sun08/15/23 at 0602, Until Sun08/21/23 at 191 Given 08/20/2023 9:32 PM EDT 50 mg Given 08/19/2023 9:37 PM EDT 50 mg Given 08/17/2023 9:00 PM EDT 50 mg insulin aspart (NovoLOG) inj Subcutaneous, W/MEALS AND HS, First dose on Sun08/15/23 at 0800, Until Discontinued, MEDIUM DOSE (Usual [...] insulin dose and call covering provider. Given 08/21/2023 12:26 PM EDT 2 Units Arm Left Upper Given 08/20/2023 9:33 PM EDT 2 Units Ar m Left Upper Given 08/20/2023 5:19 PM EDT 2 Units Ar m Left Upper Insulin Glargine (Lantus) inj 10 Units 10 Units, Subcutaneous, HS, First dose on Sun08/15/23 at 2200, Until Discontinued, "IF DOSE IS HELD- NOTIFY COVERING PROVIDER!" Given 08/20/2023 9:24 PM EDT 10 Units Arm R ight Upper Given 08/19/2023 9:37 PM EDT 10 Units Ar m Left Upper Given 08/18/2023 10:02 PM EDT 10 Units A rm Right Upper levothyroxine (Levoxyl) tab 175 mcg 175 mcg, Oral, AT 0630, First dose on Sun08/15/23 at 0715, Until Discontinued Given 08/21/2023 5:30 AM EDT 175 mcg Given 08/20/2023 5:26 AM EDT 175 mcg Given 08/19/2023 5:01 AM EDT 175 mcg LiquaCel 30 mL, Oral, BID (.AM/PM), First dose on Sun08/15/23 at 0900, Until Discontinued Given 08/21/2023 8:04 AM EDT 30 mL Given 08/20/2023 9:25 PM EDT 30 mL Given 08/20/2023 9:56 AM EDT 30 mL Lisinopril (Prinivil) tab 40 mg 40 mg, Oral, Daily(AM), First dose on Sun08/15/23 at 0900, Until Discontinued Given 08/21/2023 8:04 AM EDT 40 mg Given 08/20/2023 9:55 AM EDT 40 mg Given 08/19/2023 8:26 AM EDT 40 mg maa technetium tc 99m albumin aggregated inj 6 millicurie 6 millicurie, Intravenous, ONCE, On Sun08/15/23 at 1300, For 1 dose, Radiology Medication Routing (Non-IR) Given 08/15/2023 1:10 PM EDT 6 millicuries magnesium chloride ER (Mag-64) tab 64 mg 64 mg, Oral, ONCE, On Sun08/17/23 at 0900, For 1 dose, Each tablet contains 64 mg elemental Magnesium Due to various manufacturers, tablets labeled 70mg are considered to be equivalent Given 08/17/2023 9:22 AM EDT 64 mg melatonin tab 3 mg 3 mg, Oral, HS PRN Insomnia, Starting on Sun08/15/23 at 0606, Until Sun08/17/23 at 0958 Given 08/16/2023 9:25 PM EDT 3 mg Given 08/16/2023 1:06 AM EDT 3 mg melatonin tab 3 mg 3 mg, Oral, HS, First dose on Sun08/17/23 at 2200, Until Discontinued Given 08/20/2023 9:27 PM EDT 3 mg Given 08/19/2023 9:36 PM EDT 3 mg Given 08/18/2023 8:11 PM EDT 3 mg Menthol (Talent) cough drop 1 Lozenge 1 Lozenge, Oral, Q2H PRN Sore throat, Dry Mouth, Starting on Sun08/19/23 at 1614, Until Sun08/21/23 at 1919 Given 08/21/2023 8:10 AM EDT 1 Lozenge Given 08/20/2023 9:28 PM EDT 1 Lozenge Given 08/20/2023 5:18 PM EDT 1 Lozenge Meropenem (Merrem) 2,000 mg in NSS 100 mL ivpb 2,000 mg, IV Piggyback, Q12H (1000,2200), 12 doses, First dose (after last modification) on Sun08/18/23 at 1800, Last dose on Sun08/24/23 at 1000 Rate Verify 08/20/2023 9:50 PM EDT 4,000 mg/hr 210 mL/h r New Bag 08/20/2023 9:38 PM EDT 2,000 mg 210 mL/hr New Bag 08/20/2023 11:16 AM EDT 2,000 mg 210 mL/hr meropenem (Merrem) IVPB 1,000 mg 1,000 mg, IV Piggyback, ONCE, 1 dose, On Sun08/17/23 at 1515 New Bag 08/17/2023 3:08 PM EDT 1,000 mg 100 mL/hr meropenem (Merrem) IVPB 1,000 mg 1,000 mg, IV Piggyback, Q12H (1000,2200), 8 doses, First dose on Sun08/21/23 at 1000, Last dose on Sun08/24/23 at 2200, Administer over 30 Minutes New Bag 08/21/2023 10:43 AM EDT 1,000 mg 100 mL/hr meropenem (Merrem) IVPB 1,000 mg 1,000 mg, IV Piggyback, Q12H (1000,2200), 8 doses, First dose on Sun08/21/23 at 1000, Last dose on Sun08/24/23 at 2200, Administer over 30 Minutes, Run both bags to = 2 g dose New Bag 08/21/2023 10:06 AM EDT 1,000 mg 100 mL /hr meropenem in NSS (Merrem) ivpb 500 mg 500 mg, IV Piggyback, Q8HNOW, 15 doses, First dose on Sun08/17/23 at 2245, Last dose on Sun08/22/23 at 1445 New Bag 08/18/2023 1:02 PM EDT 500 mg 100 mL/hr New Bag 08/18/2023 6:42 AM EDT 500 mg 100 mL/hr New Bag 08/17/2023 10:21 PM EDT 500 mg 100 mL/hr metOLazone (Zaroxolyn) tab 2.5 mg 2.5 mg, Oral, Daily(AM), First dose on Sun08/21/23 at 0900, Until Discontinued Given 08/21/2023 8:07 AM EDT 2.5 mg metOLazone (Zaroxolyn) tab 5 mg 5 mg, Oral, ONCE, On Sun08/17/23 at 0900, For 1 dose Given 08/17/2023 9:21 AM EDT 5 mg metOLazone (Zaroxolyn) tab 5 mg 5 mg, Oral, ONCE, On Sun08/18/23 at 0900, For 1 dose Given 08/18/2023 9:31 AM EDT 5 mg Nitroglycerin (Nitro-Bid) 2 % ointment 1 Inch 1 Inch, Transdermal, ONCE, On Sun08/15/23 at 0430, For 1 dose, Hold for 6 hours prior to Stress Test and notify service if dose is held 1 inch = 1 packet = 1 gram Given 08/15/2023 3:52 AM EDT 1 Inch Chest Left Nitroglycerin (Nitro-Bid) 2 % ointment 1 Inch 1 Inch, Transdermal, ONCE, On Sun08/15/23 at 0530, For 1 dose, Hold for 6 hours prior to Stress Test and notify service if dose is held 1 inch = 1 packet = 1 gram Given 08/15/2023 5:03 AM EDT 1 Inch Chest Right omeprazole (PriLOSEC) cap 20 mg 20 mg, Oral, BEFORE BREAKFAST, First dose on Sun08/15/23 at 0745, Until Discontinued, This med should NOT be Crushed or Chewed Given 08/21/2023 6:02 AM EDT 20 mg Given 08/20/2023 9:55 AM EDT 20 mg Given 08/19/2023 8:25 AM EDT 20 mg Polyethylene Glycol 3350 (Miralax) oral powder 17 g 17 g (1 Packet), Oral, DAILY PRN Constipation, Starting on Sun08/15/23 at 0606, Until Sun08/21/23 at 191, Administer if no bowel movement within past 24 hours. Saline (Kay) nasal spray 1 [place], Nasal, PRN Congestion, Starting on Sun08/17/23 at 0956, Until Sun08/21/23 at 191 senna-docusate (Senokot-S) 1 Tablet 1 Tablet, Oral, BID PRN Constipation, Starting on Sun08/17/23 at 0606, Until Sun08/21/23 at 191, Administer in addition to polyethylene glycol if no bowel movement within past 48 hours. Simvastatin (Zocor) tab 40 mg 40 mg, Oral, Daily(AM), First dose on Sun08/15/23 at 0900, Until Discontinued Given 08/21/2023 8:05 AM EDT 40 mg Given 08/20/2023 9:55 AM EDT 40 mg Given 08/19/2023 8:26 AM EDT 40 mg technetium tc 99m pentetate (Dtpa) aerosol 40 millicurie 40 millicurie, Inhalation, ONCE, On Sun08/15/23 at 1300, For 1 dose, Radiology Medication Routing (Non-IR) Given 08/15/2023 12:45 PM EDT 40 millicuries Torsemide (Demadex) tab 80 mg 80 mg, Oral, BID (0900, 1600), First dose (after last modification) on Sun08/15/23 at 1600, Until Discontinued Given 08/16/2023 8:32 AM EDT 80 mg Given 08/15/2023 3:39 PM EDT 80 mg Vitamin D3 (Cholecalciferol) tab 400 Units 400 Units, Oral, Daily(AM), First dose on Sun08/21/23 at 0900, Until Discontinued, 400 units = 10 mcg Given 08/21/2023 8:05 AM EDT 400 Units documented in this encounter Active and Recently Administered Medications Times are shown in EDT. Scheduled Medication Order 08/19/2023 08/20/2023 08/21/2023 amitriptyline (Elavil) tab 100 mg 100 mg, Oral, QHS, First dose on Sun08/15/23 at 2200, Until Discontinued 2136 (Given - Provider: Krystina Coley RN) 2125 (Given - Provider: Connie Jalloh RN) amLODIPine (Norvasc) tab 10 mg 10 mg, Oral, Daily(AM), First dose on Sun08/15/23 at 0900, Until Discontinued 0825 (Given - Provider: Rama Dempsey RN) 0955 (Given - Provider: SN William) 0805 (Given - Provider: Rama Dempsey RN) Bumetanide (Bumex) tab 2 mg 2 mg, Oral, Daily(AM), First dose on Sun08/20/23 at 0930, Until Discontinued 0955 (Given - Provider: SN William) 0807 (Given - Provider: Rama Dempsey RN) Cetirizine (ZyrTEC) tab 10 mg 10 mg, Oral, Daily(AM), First dose on Sun08/20/23 at 1515, Until Discontinued 1445 (Given - Provider: Rama Dempsey RN) 0805 (Given - Provider: Rama Dempsey RN) CYANOCOBALAMIN (vitamin B-12) tab 500 mcg 500 mcg, Oral, Daily(AM), First dose on Sun08/21/23 at 0900, Until Discontinued 08 (Given - Provider: Rama Dempsey RN) DAKINS 1/2 strength (0.25%) topical solution Topical, Daily(AM), First dose on Sun08/16/23 at 1045, Until Discontinued, Apply to Rt foot WTD. 0835 (Given - Provider: Rama Dempsey RN) 1049 (Given - Provider: Rama Dempsey RN) 0804 (Given - Provider: Rama Dempsey RN) Ferrous Sulfate (Feosol) tab 325 mg 325 mg, Oral, DAILY NOON, First dose (after last modification) on Sun08/20/23 at 1515, Until Discontinued, This med should NOT be Crushed or Chewed 1445 (Given - Provider: Rama Dempsey RN) 1226 (Given - Provider: Rama Dempsey RN) fluticasone (Flonase) nasal inhaler 2 Hemet 2 Hemet, Each Nostril, Daily(AM), First dose on Sun08/18/23 at 1930, Until Discontinued, 50 mcg / Actuation 0826 (Given - Provider: Rama Dempsey RN) 0956 (Given - Provider: SN William) 0807 (Given - Provider: Rama Dempsey RN) folic acid tab 1 mg 1 mg, Oral, Daily(AM), First dose on Sun08/21/23 at 0900, Until Discontinued 0804 (Given - Provider: Rama Dempsey RN) Furosemide (Lasix) inj 100 mg (CANCELED) 100 mg, IV Push, BID (0900, 1600), First dose (after last modification) on Sun08/16/23 at 1630, Until Discontinued 0826 (Given - Provider: Rama Dempsey RN)1450 (Given - Provider: Rama Dempsey RN) hEParin inj 7,500 Units 7,500 Units, Subcutaneous, Q8H, First dose (after last modification) on Sun08/15/23 at 1200, Until Discontinued 0553 (Given - Provider: Krystina Coley RN)1449 (Given - Provider: Rama Dempsey RN)2136 (Given - Provider: Krystina Coley RN) 0526 (Given - Provider: Krystina Coley RN)1356 (Given - Provider: SN William)2133 (Given - Provider: Connie Jalloh, SARTHAK) 0530 (Given - Provider: Connie Jalloh RN)1400 (Due) insulin aspart (NovoLOG) inj Subcutaneous, W/MEALS AND HS, First dose on Sun08/15/23 at 0800, Until Discontinued, MEDIUM DOSE (Usual [...] suggested insulin dose and call covering provider. 0826 (Given - Provider: Rama eDmpsey RN)1216 (Given - Provider: Rama Dempsey RN)1648 (Given - Provider: Rama Dempsey RN)2200 (Given - Provider: Krystina Coley RN) 0956 (Given - Provider: SN William)1152 (Given - Provider: SN William)1719 (Given - Provider: Rama Dempsey RN)2133 (Given - Provider: Connie Jalloh RN) 0800 (No Insulin - Provider: Rama Dempsey RN - Reason: Parameter(s) Not Met)1226 (Given - Provider: Rama Dempsey RN) Insulin Glargine (Lantus) inj 10 Units 10 Units, Subcutaneous, HS, First dose on Sun08/15/23 at 2200, Until Discontinued, "IF DOSE IS HELD- NOTIFY COVERING PROVIDER!" 2136 (Given - Provider: Krystina Coley RN) 2123 (Given - Provider: Connie Jalloh RN) levothyroxine (Levoxyl) tab 175 mcg 175 mcg, Oral, AT 0630, First dose on Sun08/15/23 at 0715, Until Discontinued 0501 (Given - Provider: Krystina Coley RN) 0526 (Given - Provider: Krystina Coley RN) 0530 (Given - Provider: Connie Jalloh RN) LiquaCel 30 mL, Oral, BID (.AM/PM), First dose on Sun08/15/23 at 0900, Until Discontinued 824 (Given - Provider: Rama Dempsey RN)2135 (Given - Provider: Krystina Cloey RN) 0956 (Given - Provider: SN William)2124 (Given - Provider: Connie Jalloh RN) 08 (Given - Provider: Rama Dempsey RN) Lisinopril (Prinivil) tab 40 mg 40 mg, Oral, Daily(AM), First dose on Sun08/15/23 at 0900, Until Discontinued 825 (Given - Provider: Rama Dempsey RN) 09 (Given - Provider: SN William) 08 (Given - Provider: Rama Dempsey RN) melatonin tab 3 mg 3 mg, Oral, HS, First dose on Sun08/17/23 at 2200, Until Discontinued 2135 (Given - Provider: Krystina Coley RN) 2126 (Given - Provider: Connie Jalloh RN) Meropenem (Merrem) 2,000 mg in NSS 100 mL ivpb (CANCELED) 2,000 mg, IV Piggyback, Q12H (1000,2200), 12 doses, First dose (after last modification) on Sun08/18/23 at 1800, Last dose on Sun08/24/23 at 1000 1001 (New Bag - Provider: Rama Dempsey RN)1031 (Stopped - Provider: Rama Dempsey RN)2243 (New Bag - Provider: Krystina Coley RN)2333 (Stopped - Provider: Connie Jalloh RN) 1116 (New Bag - Provider: SN William)2138 (New Bag - Provider: Connie Jalloh RN)2150 (Rate Verify - Provider: Connie Jalloh RN) 0737 (Stopped - Provider: Rama Dempsey RN) meropenem (Merrem) IVPB 1,000 mg(Linked Group 1) 1,000 mg, IV Piggyback, Q12H (1000,2200), 8 doses, First dose on Sun08/21/23 at 1000, Last dose on Sun08/24/23 at 2200, Administer over 30 Minutes 1043 (New Bag - Provider: Lina Fofana RN)1918 (Due: Stopped) meropenem (Merrem) IVPB 1,000 mg(Linked Group 1) 1,000 mg, IV Piggyback, Q12H (1000,2200), 8 doses, First dose on Sun08/21/23 at 1000, Last dose on Sun08/24/23 at 2200, Administer over 30 Minutes, Run both bags to = 2 g dose 1006 (New Bag - Provider: Rama Dempsey RN)1918 (Due: Stopped) metOLazone (Zaroxolyn) tab 2.5 mg 2.5 mg, Oral, Daily(AM), First dose on Sun08/21/23 at 0900, Until Discontinued 0807 (Given - Provider: Rama Dempsey RN) omeprazole (PriLOSEC) cap 20 mg 20 mg, Oral, BEFORE BREAKFAST, First dose on Sun08/15/23 at 0745, Until Discontinued, This med should NOT be Crushed or Chewed 0825 (Given - Provider: Rama Dempsey RN) 0955 (Given - Provider: SN William) 0602 (Given - Provider: Connie Jalloh RN) Simvastatin (Zocor) tab 40 mg 40 mg, Oral, Daily(AM), First dose on Sun08/15/23 at 0900, Until Discontinued 0826 (Given - Provider: Rama Dempsey RN) 0955 (Given - Provider: SN William) 0805 (Given - Provider: Rama Dempsey RN) Vitamin D3 (Cholecalciferol) tab 400 Units 400 Units, Oral, Daily(AM), First dose on Sun08/21/23 at 0900, Until Discontinued, 400 units = 10 mcg 0805 (Given - Provider: Rama Dempsey RN) PRN Medication Order 08/19/2023 08/20/2023 08/21/2023 Acetaminophen (Tylenol) tab 650 mg 650 mg, Oral, Q6H PRN Pain, Mild, Fever >38C(100.5F), Starting on Sun08/15/23 at 0606, Until Sun08/21/23 at 1918, Maximum of 4 grams (4000 mg) per day. 0828 (Given - Provider: Rama Dempsey RN)1653 (Given - Provider: Rama Dempsey RN) 1105 (Given - Provider: SN William)2147 (Given - Provider: Connie Jalloh, SARTHAK) 1010 (Given - Provider: Rama Dempsey RN) albuterol (VENTOLIN HFA/PROVENTIL HFA) inhaler 2 Puff, Inhalation, Q6H PRN Dyspnea, Starting on Sun08/15/23 at 0602, Until Sun08/21/23 at 1918, Shake can for 10 seconds before each puff SEND INHALER WITH PATIENT! WASTE INFO ( IF NOT SENT HOME WITH PATIENT) : Return unused medication to pharmacy in zip lock bag for disposal into black container labeled SP. albuterol-ipratropium (Duoneb) inhalation solution 3 mL 3 mL, Nebulizer, Q4H PRN Other, Dyspnea, chest congestion, Starting on Sun08/19/23 at 1615, Until Sun08/21/23 at 1918, 3 mL = 0.5 mg ipratropium/ 2.5 mg albuterol 2201 (Given - Provider: Tea Ramirez, CHIEF DEVELOPMENT OFFICER-HEALTHCARE SOCIAL WORKER) Bisacodyl (Dulcolax) supp 10 mg(Linked Group 2) 10 mg, Rectal, DAILY PRN Constipation, Starting on Sun08/18/23 at 0606, Until Sun08/21/23 at 1918, Administer if no bowel movement within past 72 hours and patient unable to take oral medications. Bisacodyl (Dulcolax) tab 5 mg(Linked Group 2) 5 mg, Oral, DAILY PRN Constipation, Starting on Sun08/18/23 at 0606, Until Sun08/21/23 at 1918, Administer in addition to polyethylene glycol and senna-docusate if no bowel movement in past 72 hours. dextrose 50% inj 25 mL 25 mL, IV Push, PRN Hypoglycemia, Other, For blood glucose 54 - 69 mg/dL or 70 - 100 mg/dL with symptoms AND patient is unresponsive, NPO, OR unable to swallow, Starting on Sun08/15/23 at 0607, Until Sun08/21/23 at 1918, Administer IV. Recheck blood glucose after 15 minutes. Notify provider. dextrose 50% inj 50 mL 50 mL, IV Push, PRN Hypoglycemia, Other, For blood glucose below 54 mg/dL AND patient unresponsive, NPO, OR unable to swallow, Starting on Sun08/15/23 at 0607, Until Sun08/21/23 at 1918, Administer IV. Recheck blood glucose in 15 minutes. Notify provider. Gabapentin (Neurontin) cap 100 mg 100 mg, Oral, TID PRN neuropathicpain, Starting on Sun08/18/23 at 0924, Until Sun08/21/23 at 1918 2150 (Given - Provider: Krystina Coley, SARTHAK) 2131 (Given - Provider: Connie Jalloh RN) Glucose (Glutose 15) 40 % gel 15 g of glucose 15 g of glucose, Oral, PRN Hypoglycemia (low sugar), Other, For blood glucose 54 - 69 mg/dL or 70 - 100 mg/dL with symptoms AND patient alert WITH difficulty chewing/swallowing, Starting on Sun08/15/23 at 06, Until Sun08/21/23 at 1918, Administer gel. Recheck blood glucose after 15 minutes. Notify provider. 37.5 gram tube = 15 grams glucose = 1 each Glucose (Glutose 15) 40 % gel 30 g of glucose 30 g of glucose, Oral, PRN Hypoglycemia (low sugar), Other, For blood glucose below 54 mg/dL AND patient alert WITH difficulty chewing/swallowing, Starting on Sun08/15/23 at 06, Until Sun08/21/23 at 1918, Administer gel. Recheck blood glucose after 15 minutes. Notify provider. 37.5 gram tube = 15 grams glucose = 1 each glucose chew tab 16 g 16 g, Oral, PRN Hypoglycemia, Other, For blood glucose 54 - 69 mg/dL or 70 - 100 mg/dL with symptoms and patient alert without difficulty chewing/swallowing., Starting on Sun08/15/23 at 0607, Until Sun08/21/23 at 1918 guaiFENesin (Robitussin) oral liquid 200 mg 200 mg, Oral, QID PRN Cough, Starting on Sun08/20/23 at 2329, Until Sun08/21/23 at 1918 0004 (Given - Provider: Connie Jalloh RN) hydrOXYzine HCl tab 50 mg 50 mg, Oral, Q8H PRN Anxiety, Starting on Sun08/15/23 at 0602, Until Sun08/21/23 at 1918 2137 (Given - Provider: Krystina Coley, SARTHAK) 2132 (Given - Provider: Connie Jalloh, SARTHAK) Menthol (Talent) cough drop 1 Lozenge 1 Lozenge, Oral, Q2H PRN Sore throat, Dry Mouth, Starting on Sun08/19/23 at 1614, Until Sun08/21/23 at 1918 1653 (Given - Provider: Rama Dempsey, SARTHAK)2242 (Given - Provider: Krystina Coley RN) 1718 (Given - Provider: Rama Dempsey RN)2128 (Given - Provider: Connie Jalloh RN) 0810 (Given - Provider: Rama Dempsey, SARTHAK) ondansetron (Zofran) inj 4 mg 4 mg, IV Push, Q6H PRN Nausea, Starting on Sun08/15/23 at 0606, Until Sun08/21/23 at 1918 Polyethylene Glycol 3350 (Miralax) oral powder 17 g(Linked Group 2) 17 g (1 Packet), Oral, DAILY PRN Constipation, Starting on Sun08/15/23 at 0606, Until Sun08/21/23 at 1918, Administer if no bowel movement within past 24 hours. Saline (Kay) nasal spray 1 Hemet, Nasal, PRN Congestion, Starting on Sun08/17/23 at 0956, Until Sun08/21/23 at 1918 senna-docusate (Senokot-S) 1 Tablet(Linked Group 2) 1 Tablet, Oral, BID PRN Constipation, Starting on Sun08/17/23 at 0606, Until Sun08/21/23 at 1918, Administer in addition to polyethylene glycol if no bowel movement within past 48 hours. sodium chloride 0.9 % flush/inj 3 mL 3 mL, IV Push, PRN Other, Line Patency, Starting on Sun08/15/23 at 0605, Until Sun08/21/23 at 1918, Do not flush if lock, PICC, or central line not in place, IV infusing or unable to flush Linked Groups Order Group 1: meropenem (Merrem) IVPB 1,000 mgJump to med 1,000 mg, IV Piggyback, Q12H (1000,2200), 8 doses, First dose on Sun08/21/23 at 1000, Last dose on Sun08/24/23 at 2200, Administer over 30 Minutes And meropenem (Merrem) IVPB 1,000 mgJump to med 1,000 mg, IV Piggyback, Q12H (1000,2200), 8 doses, First dose on Sun08/21/23 at 1000, Last dose on Sun08/24/23 at 2200, Administer over 30 Minutes, Run both bags to = 2 g dose Group 2: Polyethylene Glycol 3350 (Miralax) oral powder 17 gJump to med 17 g (1 Packet), Oral, DAILY PRN Constipation, Starting on Sun08/15/23 at 0606, Until Sun08/21/23 at 1918, Administer if no bowel movement within past 24 hours. And senna-docusate (Senokot-S) 1 TabletJump to med 1 Tablet, Oral, BID PRN Constipation, Starting on Sun08/17/23 at 0606, Until Sun08/21/23 at 1918, Administer in addition to polyethylene glycol if no bowel movement within past 48 hours. And Bisacodyl (Dulcolax) tab 5 mgJump to med 5 mg, Oral, DAILY PRN Constipation, Starting on Sun08/18/23 at 06, Until Sun08/21/23 at 1918, Administer in addition to polyethylene glycol and senna-docusate if no bowel movement in past 72 hours. And Bisacodyl (Dulcolax) supp 10 mgJump to med 10 mg, Rectal, DAILY PRN Constipation, Starting on Sun08/18/23 at 06, Until Sun08/21/23 at 1918, Administer if no bowel movement within past 72 hours and patient unable to take oral medications. documented in this encounter Additional Health Concerns Infection Onset Date Last Indicated Resolved Time Respiratory Rule-Out 08/20/2023 08/20/2023 024 12:45 PM EDT COVID-19 Rule-Out 08/20/2023 08/20/2023 08/20/2023 12:45 PM EDT Enterovirus (resp)/Rhinovirus 08/20/2023 08/20/2023 documented as of this encounter Advance Directives Documents on File Type Date Recorded Patient Correctional Medicine Physician Brianne garcia POLST 08/16/2023 signed on 08/12 [place] ORDERS FOR LIFE-SUSTAINING TREATMENT POLST 06/17/2023 [place] OR DERS FOR LIFE-SUSTAINING TREATMENT * Full Code (Latest Code Status on [...] Advance Directives occurred with: Patient Care Teams Wire Mill Rover Relationship Specialty Start Date End Date Natali Langston DO [address] [place] [address], [place] [address] PCP - General Family Medicine 06/18/14 documented as of this encounter
--- OUTSIDE RECORDS SUMMARY | 2023-12-08 02:55 | External Medical Summary ---
Author Name Unknown Address Unknown Organization : Laboratory Report Ordering Provider Test Date Status EVER ELLER 08/19/2023 07:47:02 Final Observation Date Value Abnormality Reference (Units ) Status Glucose Point of Care 08/19/2023 07:47:02 154 Above high normal 70-120 (mg/dL) Final Performing Location
--- OUTSIDE RECORDS SUMMARY | 2023-12-08 02:55 | External Medical Summary ---
Author Name Unknown Address Unknown Organization K1F:LABORATORY [facility] - [address] [place] [address] Laboratory Report Ordering Provider Test Date Status DELVIS ELLERBOOKER 08/20/2023 06:52:00 Final Observation Date Value Abnormality Reference (Units ) Status WBC, Total 08/20/2023 06:52:00 8.89 4.00-10.80 (K/uL) Final RBC 08/20/2023 06:52:00 2.84 3.85-5.15 (M/uL) Final Hemoglobin 08/20/2023 06:52:00 8.1 Below low normal 12.0-15.3 (g/dL) Final HCT 08/20/2023 06:52:00 25.3 Below low normal 36.0-45.2 (%) Final MCV 08/20/2023 06:52:00 89.1 81.5-97.5 (fL) Final MCH 08/20/2023 06:52:00 28.5 27.0-34.0 (pg) Final MCHC 08/20/2023 06:52:00 32.0 32.0-36.0 (g/dL) Final RDW 08/20/2023 06:52:00 15.5 11.5-15.5 (%) Final Platelets 08/20/2023 06:52:00 325 140-400 (K/uL) Final MPV 08/20/2023 06:52:00 11.0 6.6-11.1 (fL) Final Nucleated erythrocytes/100 leukocytes [Ratio] in Blood by Automated count 08/20/2023 06:52:00 0 <=0 (/100 WBCs) Final Performing Location LABORATORY [facility] - [address] [place] [address]
--- OUTSIDE RECORDS SUMMARY | 2023-12-08 02:55 | External Medical Summary ---
Author Name Unknown Address Unknown Organization : Laboratory Report Ordering Provider Test Date Status VITO MENDOZA 08/18/2023 16:39:02 Final Observation Date Value Abnormality Reference (Units ) Status Glucose Point of Care 08/18/2023 16:39:02 192 Above high normal 70-120 (mg/dL) Final Performing Location
--- OUTSIDE RECORDS SUMMARY | 2023-12-08 02:55 | External Medical Summary ---
Author Name Unknown Address Unknown Organization K1F:[facility] [address] [facility] [place] [place] [address] Laboratory Report Ordering Provider Test Date Status VITO MENDOZA 08/20/2023 11:51:15 Final ADMITTED patient Observation Date Value Abnormality Reference (Units ) Status Adenovirus DNA [Presence] in Nasopharynx by BLAISE with non-probe detection 08/20/2023 11:51:15 Negative Negative Final Human coronavirus 229E RNA [Presence] in Nasopharynx by BLAISE with non-probe detection 08/20/2023 11:51:15 Negative Negative Final Human coronavirus HKU1 RNA [Presence] in Nasopharynx by BLAISE with non-probe detection 08/20/2023 11:51:15 Negative Negative Final Human coronavirus NL63 RNA [Presence] in Nasopharynx by BLAISE with non-probe detection 08/20/2023 11:51:15 Negative Negative Final Human coronavirus OC43 RNA [Presence] in Nasopharynx by BLAISE with non-probe detection 08/20/2023 11:51:15 Negative Negative Final SARS-CoV-2 (COVID-19) RNA [Presence] in Nasopharynx by BLAISE with non-probe detection 08/20/2023 11:51:15 Negative Negative Final Human metapneumovirus RNA [Presence] in Nasopharynx by BLAISE with non-probe detection 08/20/2023 11:51:15 Negative Negative Final Rhinovirus+Enterovirus RNA [Presence] in Nasopharynx by BLAISE with non-probe detection 08/20/2023 11:51:15 Positive Abnormal Negative Final Rhinovirus/Enterovirus detec zain by PCR (amplified probe).

Influenza virus A RNA [Prese nce] in Nasopharynx by BLAISE with non-probe detection 08/20/2023 11:51:15 Negative Negative Final Influenza virus B RNA [Prese nce] in Nasopharynx by BLAISE with non-probe detection 08/20/2023 11:51:15 Negative Negative Final Parainfluenza virus 1 RNA [P resence] in Nasopharynx by BLAISE with non-probe detection 08/20/2023 11:51:15 Negative Negative Final Parainfluenza virus 2 RNA [P resence] in Nasopharynx by BLAISE with non-probe detection 08/20/2023 11:51:15 Negative Negative Final Parainfluenza virus 3 RNA [P resence] in Nasopharynx by BLAISE with non-probe detection 08/20/2023 11:51:15 Negative Negative Final Parainfluenza virus 4 RNA [P resence] in Nasopharynx by BLAISE with non-probe detection 08/20/2023 11:51:15 Negative Negative Final Respiratory syncytial virus RNA [Presence] in Nasopharynx by BLAISE with non-probe detection 08/20/2023 11:51:15 Negative Negative F inal Bordetella pertussis.pertuss is toxin promoter region [Presence] in Nasopharynx by BLAISE with non-probe detection 08/20/2023 11:51:15 Negative Negative Final Chlamydophila pneumoniae DNA [Presence] in Nasopharynx by BLAISE with non-probe detection 08/20/2023 11:51:15 Negative Negative Final Mycoplasma pneumoniae DNA [P resence] in Nasopharynx by BLAISE with non-probe detection 08/20/2023 11:51:15 Negative Negative Final Bordetella parapertussis IS1 001 DNA [Presence] in Nasopharynx by BLAISE with non-probe detection 08/20/2023 11:51:15 Negative Negative F inal
The primers that detect Rhinovirus may cross react with some Enterorviruses. The validation of bronchial specimens, tracheal aspirates, and throats for this assay was developed and performance characteristics determined by [employer]. The validation of alternate specimen types has not been cleared or approved by the U.S. Food and Drug Administration (FDA). It has been determined that such clearance or approval is not necessary. [facility] - [address] [place] [address]
--- OUTSIDE RECORDS SUMMARY | 2023-12-08 02:55 | External Medical Summary ---
Author Name Unknown Address Unknown Organization K1F:LABORATORY [facility] - [address] [place] [address] Laboratory Report Ordering Provider Test Date Status LEONIDAS FAJARDO 08/20/2023 12:07:48 Final Observation Date Value Abnormality Reference (Units ) Status Color of Urine by Auto 08/20/2023 12:07:48 Yellow Light Yellow, Yellow, Dark Yellow Final Clarity, Urine 08/20/2023 12:07:48 Clear Clear Final Glucose [Mass/volume] in Urine by Automated test strip 08/20/2023 12:07:48 250 Abnormal Negative (mg/dL) Final Bilirubin.total [Presence] in Urine by Automated test strip 08/20/2023 12:07:48 Negative Negative Final Ketones [Mass/volume] in Urine by Automated test strip 08/20/2023 12:07:48 Negative Negative (mg/dL) Final Specific gravity, Urine 08/20/2023 12:07:48 1.018 1.003-1.030 Final Hemoglobin [Presence] in Urine by Automated test strip 08/20/2023 12:07:48 Moderate Abnormal Negative Final pH, Urine 08/20/2023 12:07:48 6.5 5.0-7.5 (Units) Final Protein [Mass/volume] in Urine by Automated test strip 08/20/2023 12:07:48 >=300 Abnormal Negative (mg/dL) Final Urobilinogen [Mass/volume] in Urine by Automated test strip 08/20/2023 12:07:48 0.2 0.2, 1.0 (mg/dL) Final Nitrite [Presence] in Urine by Automated test strip 08/20/2023 12:07:48 Negative Negative Final Leukocyte esterase [Presence] in Urine by Automated test strip 08/20/2023 12:07:48 Negative Negative Final RBC, Urine 08/20/2023 12:07:48 50+ Abnormal 0-2 (/HPF) Final WBC, Urine 08/20/2023 12:07:48 0-2 0-2 (/HPF) Final Bacteria [#/area] in Urine sediment by Microscopy high power field 08/20/2023 12:07:48 51-100 Abnormal 0-25 (/HPF) Final [facility] 08/20/20[facility] 12:07:48 Final Quantitative urine culture t o be performed Performing Location LABORATORY [facility] - Formerly named [facility] [address] [place] [address]
--- OUTSIDE RECORDS SUMMARY | 2023-12-08 02:55 | External Medical Summary ---
Author Name Unknown Address Unknown Organization : Laboratory Report Ordering Provider Test Date Status VITO MENDOZA 08/20/2023 21:23:57 Final Observation Date Value Abnormality Reference (Units ) Status Glucose Point of Care 08/20/2023 21:23:57 182 Above high normal 70-120 (mg/dL) Final Performing Location
--- OUTSIDE RECORDS SUMMARY | 2023-12-08 02:55 | External Medical Summary ---
Author Name Unknown Address Unknown Organization K1F:LABORATORY [facility] - [address] [place] [address] Laboratory Report Ordering Provider Test Date Status VENKATA MENDOZASHERMAN 08/21/2023 05:10:00 Final Observation Date Value Abnormality Reference (Units ) Status BUN 08/21/2023 05:10:00 72 Above high normal 6-20 (mg/dL) Final Creatinine 08/21/2023 05:10:00 2.0 Above high normal 0.5-1.0 (mg/dL) Final Glomerular filtration rate/1.73 sq M.predicted [Volume Rate/Area] in Serum, Plasma or Blood by Creatinine-based formula (CKD-EPI) 08/21/2023 05:10:00 27 Below low normal >=60 (mL/min) Final eGFR is calculated based on the CKD-EPI 2020 equation Sodium 08/21/2023 05:10:00 134 Below low normal 135 -146 (mmol/L) Final Potassium 08/21/2023 05:10:00 4.3 3.5-5.1 (m mol/L) Final Cl 08/21/2023 05:10:00 103 98-107 (mm ol/L) Final CO2 08/21/2023 05:10:00 21 Below low normal 22- 32 (mmol/L) Final Anion gap 08/21/2023 05:10:00 10 7-15 (mmol /L) Final Glucose 08/21/2023 05:10:00 133 Above high normal 70 -120 (mg/dL) Final Calcium 08/21/2023 05:10:00 8.3 Below low normal 8.4 -10.2 (mg/dL) Final Performing Location LABORATORY [facility] - [address] [place] [address]
--- OUTSIDE RECORDS SUMMARY | 2023-12-08 02:55 | External Medical Summary ---
Author Name Unknown Address Unknown Organization : Laboratory Report Ordering Provider Test Date Status VITO MENDOZA 08/20/2023 09:08:53 Final Observation Date Value Abnormality Reference (Units ) Status Glucose Point of Care 08/20/2023 09:08:53 238 Above high normal 70-120 (mg/dL) Final Performing Location
--- OUTSIDE RECORDS SUMMARY | 2023-12-08 02:55 | External Medical Summary ---
Author Name Unknown Address Unknown Organization K1F:LABORATORY [facility] - [address] [place] [address] Laboratory Report Ordering Provider Test Date Status REJIVITO 08/18/2023 06:37:00 Final Observation Date Value Abnormality Reference (Units ) Status BUN 08/18/2023 06:37:00 67 Above high normal 6-20 (mg/dL) Final Creatinine 08/18/2023 06:37:00 2.0 Above high normal 0.5-1.0 (mg/dL) Final Glomerular filtration rate/1.73 sq M.predicted [Volume Rate/Area] in Serum, Plasma or Blood by Creatinine-based formula (CKD-EPI) 08/18/2023 06:37:00 27 Below low normal >=60 (mL/min) Final eGFR is calculated based on the CKD-EPI 2020 equation Sodium 08/18/2023 06:37:00 135 135-146 (m mol/L) Final Potassium 08/18/2023 06:37:00 4.7 3.5-5.1 (m mol/L) Final Cl 08/18/2023 06:37:00 106 98-107 (mm ol/L) Final CO2 08/18/2023 06:37:00 20 Below low normal 22- 32 (mmol/L) Final Anion gap 08/18/2023 06:37:00 9 7-15 (mmol /L) Final Glucose 08/18/2023 06:37:00 114 70-120 (mg /dL) Final Calcium 08/18/2023 06:37:00 8.6 8.4-10.2 ( mg/dL) Final Performing Location LABORATORY [facility] - [address] [place] [address]
--- OUTSIDE RECORDS SUMMARY | 2023-12-08 02:55 | External Medical Summary ---
Author Name Unknown Address Unknown Organization K01:LAB[place]ORY [facility] [place] [address] [place] [address] Laboratory Report Ordering Provider Test Date Status FREDERIC ABEL 08/22/2023 03:52:00 Final Observation Date Value Abnormality Reference (Units ) Status Erythrocyte sedimentation rate by Photometric method 08/22/2023 03:52:00 66 Above high normal <30 (mm/hour) Final Performing Location LABORATORY [facility] - [address] [place] [address]
--- OUTSIDE RECORDS SUMMARY | 2023-12-08 02:55 | External Medical Summary ---
Author Name Unknown Address Unknown Organization : Laboratory Report Ordering Provider Test Date Status EVER ELLER 08/21/2023 11:26:31 Final Observation Date Value Abnormality Reference (Units ) Status Glucose Point of Care 08/21/2023 11:26:31 160 Above high normal 70-120 (mg/dL) Final Performing Location
--- OUTSIDE RECORDS SUMMARY | 2023-12-08 02:55 | External Medical Summary ---
Author Name Unknown Address Unknown Organization K1F:LABORATORY [facility] - [address] [place] [address] Laboratory Report Ordering Provider Test Date Status FREDERIC ABEL 08/22/2023 03:52:00 Final Observation Date Value Abnormality Reference (Units ) Status BUN 08/22/2023 03:52:00 73 Above high normal 6-20 (mg/dL) Final Creatinine 08/22/2023 03:52:00 2.1 Above high normal 0.5-1.0 (mg/dL) Final Glomerular filtration rate/1.73 sq M.predicted [Volume Rate/Area] in Serum, Plasma or Blood by Creatinine-based formula (CKD-EPI) 08/22/2023 03:52:00 25 Below low normal >=60 (mL/min) Final eGFR is calculated based on the CKD-EPI 2020 equation Sodium 08/22/2023 03:52:00 136 135-146 (m mol/L) Final Potassium 08/22/2023 03:52:00 4.5 3.5-5.1 (m mol/L) Final Cl 08/22/2023 03:52:00 101 98-107 (mm ol/L) Final CO2 08/22/2023 03:52:00 22 22-32 (mmo l/L) Final Anion gap 08/22/2023 03:52:00 13 7-15 (mmol /L) Final Glucose 08/22/2023 03:52:00 149 Above high normal 70 -120 (mg/dL) Final Albumin 08/22/2023 03:52:00 2.3 Below low normal 3.8 -5.0 (g/dL) Final AST (Aspartate aminotransferase) 08/22/2023 03:52:00 28 10-35 (U/L) Fin al Alk Phos 08/22/2023 03:52:00 165 Above high normal 35 -130 (U/L) Final Bilirubin, Total 08/22/2023 03:52:00 <0.2 <=1 .2 (mg/dL) Final Calcium 08/22/2023 03:52:00 8.1 Below low normal 8.4 -10.2 (mg/dL) Final Protein 08/22/2023 03:52:00 6.0 6.0-8.3 (g /dL) Final ALT (Alanine aminotransferase) 08/22/2023 03:52:00 9 Below low normal 10-35 (U/L) Final Performing Location LABORATORY [facility] - [address] [place], [place] [address] [place] [address]
--- OUTSIDE RECORDS SUMMARY | 2023-12-08 02:55 | External Medical Summary ---
Author Name Unknown Address Unknown Organization : Laboratory Report Ordering Provider Test Date Status VITO MENDOZA 08/20/2023 11:20:47 Final Observation Date Value Abnormality Reference (Units ) Status Glucose Point of Care 08/20/2023 11:20:47 187 Above high normal 70-120 (mg/dL) Final Performing Location
--- OUTSIDE RECORDS SUMMARY | 2023-12-08 02:55 | External Medical Summary ---
Author Name Unknown Address Unknown Organization : Laboratory Report Ordering Provider Test Date Status VITO MENDOZA 08/18/2023 07:19:06 Final Observation Date Value Abnormality Reference (Units ) Status Glucose Point of Care 08/18/2023 07:19:06 110 70-120 (mg/dL) Final Performing Location
--- OUTSIDE RECORDS SUMMARY | 2023-12-08 02:55 | External Medical Summary ---
Author Name Unknown Address Unknown Organization K1F:LABORATORY [facility] - [address] [place] [address] Laboratory Report Ordering Provider Test Date Status VENKATA MENDOZASHERMAN 08/18/2023 06:37:00 Final Observation Date Value Abnormality Reference (Units ) Status WBC, Total 08/18/2023 06:37:00 10.12 4.00-10.80 (K/uL) Final RBC 08/18/2023 06:37:00 2.68 3.85-5.15 (M/uL) Final Hemoglobin 08/18/2023 06:37:00 7.6 Below low normal 12.0-15.3 (g/dL) Final HCT 08/18/2023 06:37:00 24.4 Below low normal 36.0-45.2 (%) Final MCV 08/18/2023 06:37:00 91.0 81.5-97.5 (fL) Final MCH 08/18/2023 06:37:00 28.4 27.0-34.0 (pg) Final MCHC 08/18/2023 06:37:00 31.1 32.0-36.0 (g/dL) Final RDW 08/18/2023 06:37:00 15.9 11.5-15.5 (%) Final Platelets 08/18/2023 06:37:00 315 140-400 (K/uL) Final MPV 08/18/2023 06:37:00 10.6 6.6-11.1 (fL) Final Nucleated erythrocytes/100 leukocytes [Ratio] in Blood by Automated count 08/18/2023 06:37:00 0 <=0 (/100 WBCs) Final Performing Location LABORATORY [facility] - [address] [place] [address]
--- OUTSIDE RECORDS SUMMARY | 2023-12-08 02:55 | External Medical Summary ---
Author Name Unknown Address Unknown Organization K1F:LABORATORY [facility] - [address] [place] [address] Laboratory Report Ordering Provider Test Date Status FREDERIC ABEL 08/22/2023 03:52:00 Final Observation Date Value Abnormality Reference (Units ) Status WBC, Total 08/22/2023 03:52:00 8.55 4.00-10.80 (K/uL) Final RBC 08/22/2023 03:52:00 2.69 3.85-5.15 (M/uL) Final Hemoglobin 08/22/2023 03:52:00 7.5 Below low normal 12.0-15.3 (g/dL) Final HCT 08/22/2023 03:52:00 24.1 Below low normal 36.0-45.2 (%) Final MCV 08/22/2023 03:52:00 89.6 81.5-97.5 (fL) Final MCH 08/22/2023 03:52:00 27.9 27.0-34.0 (pg) Final MCHC 08/22/2023 03:52:00 31.1 32.0-36.0 (g/dL) Final RDW 08/22/2023 03:52:00 15.9 11.5-15.5 (%) Final Platelets 08/22/2023 03:52:00 300 140-400 (K/uL) Final MPV 08/22/2023 03:52:00 11.6 6.6-11.1 (fL) Final Nucleated erythrocytes/100 leukocytes [Ratio] in Blood by Automated count 08/22/2023 03:52:00 0 <=0 (/100 WBCs) Final Performing Location LABORATORY [facility] - [address] [place] [address]
--- OUTSIDE RECORDS SUMMARY | 2023-12-08 02:55 | External Medical Summary ---
Author Name Unknown Address Unknown Organization K01:LABORATORY [facility] [place] - [address] [place] [id number] Laboratory Report Ordering Provider Test Date Status LEONIDAS FAJARDO 08/20/2023 12:07:48 Final Observation Date Value Abnormality Reference (Units) Status Bacteria identified in Specimen by Culture 08/20/2023 12:07:48 No significant growth Final Test: Culture, Urine, Quanti tative
Specimen Source: Urine, Clean Catch
Specimen Type: Urine
Specimen Date: 08/20/2023 1207
Result Date: 08/21/2023 1455
Result Status: Final result
Resulting Lab: LABORATORY [facility] [place]
[address]
[place] [id number]

CULTURE

No significant growth

null Performing Location LABORATORY [facility] [place] - [address] [facility] [address]
--- OUTSIDE RECORDS SUMMARY | 2023-12-08 02:55 | External Medical Summary ---
Author Name Unknown Address Unknown Organization : Laboratory Report Ordering Provider Test Date Status EVER ELLER 08/19/2023 21:18:28 Final Observation Date Value Abnormality Reference (Units ) Status Glucose Point of Care 08/19/2023 21:18:28 208 Above high normal 70-120 (mg/dL) Final Performing Location
--- OUTSIDE RECORDS SUMMARY | 2023-12-08 02:55 | External Medical Summary ---
Author Name Unknown Address Unknown Organization K1F:LABORATORY [facility] - [address] [place] [address] Laboratory Report Ordering Provider Test Date Status REJIVENKATASHERMAN 08/19/2023 06:46:00 Final Observation Date Value Abnormality Reference (Units ) Status WBC, Total 08/19/2023 06:46:00 9.32 4.00-10.80 (K/uL) Final RBC 08/19/2023 06:46:00 2.88 3.85-5.15 (M/uL) Final Hemoglobin 08/19/2023 06:46:00 8.3 Below low normal 12.0-15.3 (g/dL) Final HCT 08/19/2023 06:46:00 25.9 Below low normal 36.0-45.2 (%) Final MCV 08/19/2023 06:46:00 89.9 81.5-97.5 (fL) Final MCH 08/19/2023 06:46:00 28.8 27.0-34.0 (pg) Final MCHC 08/19/2023 06:46:00 32.0 32.0-36.0 (g/dL) Final RDW 08/19/2023 06:46:00 15.5 11.5-15.5 (%) Final Platelets 08/19/2023 06:46:00 314 140-400 (K/uL) Final MPV 08/19/2023 06:46:00 11.1 6.6-11.1 (fL) Final Nucleated erythrocytes/100 leukocytes [Ratio] in Blood by Automated count 08/19/2023 06:46:00 0 <=0 (/100 WBCs) Final Performing Location LABORATORY [facility] - [address] [place] [address]
--- OUTSIDE RECORDS SUMMARY | 2023-12-08 02:55 | External Medical Summary ---
Author Name Unknown Address Unknown Organization : Laboratory Report Ordering Provider Test Date Status EVER ELLER 08/19/2023 11:31:07 Final Observation Date Value Abnormality Reference (Units ) Status Glucose Point of Care 08/19/2023 11:31:07 183 Above high normal 70-120 (mg/dL) Final Performing Location
--- OUTSIDE RECORDS SUMMARY | 2023-12-08 02:55 | External Medical Summary ---
Author Name Unknown Address Unknown Organization K1F:LABORATORY [facility] - [address] [place] [address] Laboratory Report Ordering Provider Test Date Status FRANCISCA ABELL 08/22/2023 03:52:00 Final Observation Date Value Abnormality Reference (Units ) Status CRP, low-sensitivity 08/22/2023 03:52:00 11 Above high normal <=5 (mg/L) Final Performing Location LABORATORY [facility] - [address] [place] [address]
--- OUTSIDE RECORDS SUMMARY | 2023-12-08 02:55 | External Medical Summary ---
Author Name Unknown Address Unknown Organization K1F:LABORATORY [facility] - [address] [place] [address] Laboratory Report Ordering Provider Test Date Status NITO MENDOZALORAINE 08/21/2023 05:10:00 Final Observation Date Value Abnormality Reference (Units ) Status WBC, Total 08/21/2023 05:10:00 8.16 4.00-10.80 (K/uL) Final RBC 08/21/2023 05:10:00 2.60 3.85-5.15 (M/uL) Final Hemoglobin 08/21/2023 05:10:00 7.5 Below low normal 12.0-15.3 (g/dL) Final HCT 08/21/2023 05:10:00 23.6 Below low normal 36.0-45.2 (%) Final MCV 08/21/2023 05:10:00 90.8 81.5-97.5 (fL) Final MCH 08/21/2023 05:10:00 28.8 27.0-34.0 (pg) Final MCHC 08/21/2023 05:10:00 31.8 32.0-36.0 (g/dL) Final RDW 08/21/2023 05:10:00 15.7 11.5-15.5 (%) Final Platelets 08/21/2023 05:10:00 294 140-400 (K/uL) Final MPV 08/21/2023 05:10:00 11.1 6.6-11.1 (fL) Final Nucleated erythrocytes/100 leukocytes [Ratio] in Blood by Automated count 08/21/2023 05:10:00 0 <=0 (/100 WBCs) Final Performing Location LABORATORY [facility] - [address] [place] [address]
--- OUTSIDE RECORDS SUMMARY | 2023-12-08 02:55 | External Medical Summary ---
Author Name Unknown Address Unknown Organization K1F:LABORATORY [facility] - [address] [place] [address] Laboratory Report Ordering Provider Test Date Status VITO MENDOZA 08/18/2023 06:37:00 Final Observation Date Value Abnormality Reference (Units ) Status Magnesium 08/18/2023 06:37:00 1.5 1.5-2.6 (m g/dL) Final Performing Location LABORATORY [facility] - [address] [place] [address]
--- OUTSIDE RECORDS SUMMARY | 2023-12-08 02:56 | External Medical Summary ---
Author Name Unknown Address Unknown Organization K1F:LABORATORY [facility] - [address] [place] [address] Laboratory Report Ordering Provider Test Date Status LEONIDAS FAJARDO 08/15/2023 04:50:12 Final Observation Date Value Abnormality Reference (Units ) Status Troponin T 08/15/2023 04:50:12 141 Above upper panic limits <=14 (ng/L) Final Performing Location LABORATORY [facility] - [address] [place] [address]
--- OUTSIDE RECORDS SUMMARY | 2023-12-08 02:56 | External Medical Summary ---
Author Name Unknown Address Unknown Organization K1F:LABORATORY [facility] - [address] [place] [address] [address] [place] [place] [address] Laboratory Report Ordering Provider Test Date Status LEONIDAS FAJARDO 08/15/2023 03:47:30 Final Observation Date Value Abnormality Reference (Units ) Status WBC, Total 08/15/2023 03:47:30 10.40 4.00-10.80 (K/uL) Final RBC 08/15/2023 03:47:30 2.98 3.85-5.15 (M/uL) Final Hemoglobin 08/15/2023 03:47:30 8.4 Below low normal 12.0-15.3 (g/dL) Final HCT 08/15/2023 03:47:30 27.4 Below low normal 36.0-45.2 (%) Final MCV 08/15/2023 03:47:30 91.9 81.5-97.5 (fL) Final MCH 08/15/2023 03:47:30 28.2 27.0-34.0 (pg) Final MCHC 08/15/2023 03:47:30 30.7 32.0-36.0 (g/dL) Final RDW 08/15/2023 03:47:30 15.9 11.5-15.5 (%) Final Platelets 08/15/2023 03:47:30 349 140-400 (K/uL) Final MPV 08/15/2023 03:47:30 10.3 6.6-11.1 (fL) Final Nucleated erythrocytes/100 leukocytes [Ratio] in Blood by Automated count 08/15/2023 03:47:30 0 <=0 (/100 WBCs) Final Performing Location LABORATORY [facility] - [address] [place] [address]
--- OUTSIDE RECORDS SUMMARY | 2023-12-08 02:56 | External Medical Summary ---
Author Name Unknown Address Unknown Organization K1F:LABORATORY [facility] - [address] [place] [address] Laboratory Report Ordering Provider Test Date Status LEONIDAS FAJARDO 08/15/2023 03:47:30 Final Observation Date Value Abnormality Reference (Units ) Status SYNC LEUKOCYTES IN BLOOD BY AUTOMATED COUNT 08/15/2023 03:47:30 10.40 4.00-10.80 (K/uL) Final Segs 08/15/2023 03:47:30 52.9 40.0-75.0 (%) Final Lymphs % 08/15/2023 03:47:30 28.1 18.0-42.0 (%) Final Monos 08/15/2023 03:47:30 8.6 1.0-11.0 (%) Final Eosinophils 08/15/2023 03:47:30 9.1 Above high normal 0.0-6.0 (%) Final Basos 08/15/2023 03:47:30 0.7 0.0-2.0 (%) Final Immature Granulocyte, Percent 08/15/2023 03:47:30 0.6 0.0-2.0 (%) Final Absolute Segs 08/15/2023 03:47:30 5.51 1.80-7.70 (K/uL) Final Lymphs, absolute 08/15/2023 03:47:30 2.92 1.00-4.80 (K/ul) Final Monos, Abs 08/15/2023 03:47:30 0.89 0.00-1.10 (K/uL) Final Eos, Abs 08/15/2023 03:47:30 0.95 Above high normal 0.00-0.70 (K/uL) Final Basos, Abs 08/15/2023 03:47:30 0.07 0.00-0.20 (K/uL) Final Immature Granulocytes, Number 08/15/2023 03:47:30 0.06 0.00-0.20 (K/uL) Final Performing Location LABORATORY [facility] - [facility] [address] [place] [address]
--- OUTSIDE RECORDS SUMMARY | 2023-12-08 02:56 | External Medical Summary ---
Author Name Unknown Address Unknown Organization : Laboratory Report Ordering Provider Test Date Status VITO MENODZA 08/17/2023 11:27:59 Final Observation Date Value Abnormality Reference (Units ) Status Glucose Point of Care 08/17/2023 11:27:59 149 Above high normal 70-120 (mg/dL) Final Performing Location
--- OUTSIDE RECORDS SUMMARY | 2023-12-08 02:56 | External Medical Summary ---
Author Name Unknown Address Unknown Organization : Laboratory Report Ordering Provider Test Date Status NICK CERRATO 08/15/2023 21:33:38 Final Observation Date Value Abnormality Reference (Units ) Status Glucose Point of Care 08/15/2023 21:33:38 171 Above high normal 70-120 (mg/dL) Final Performing Location
--- OUTSIDE RECORDS SUMMARY | 2023-12-08 02:56 | External Medical Summary ---
Author Name Unknown Address Unknown Organization : Laboratory Report Ordering Provider Test Date Status VITO MENDOZA 08/17/2023 12:25:22 Final Observation Date Value Abnormality Reference (Units ) Status Glucose Point of Care 08/17/2023 12:25:22 144 Above high normal 70-120 (mg/dL) Final Performing Location
--- OUTSIDE RECORDS SUMMARY | 2023-12-08 02:56 | External Medical Summary ---
Author Name Unknown Address Unknown Organization K1F:LABORATORY [facility] - [address] [place] [address] Laboratory Report Ordering Provider Test Date Status EVY FERNANDEZ 08/16/2023 05:58:00 Final Observation Date Value Abnormality Reference (Units ) Status WBC, Total 08/16/2023 05:58:00 9.14 4.00-10.80 (K/uL) Final RBC 08/16/2023 05:58:00 3.14 3.85-5.15 (M/uL) Final Hemoglobin 08/16/2023 05:58:00 8.7 Below low normal 12.0-15.3 (g/dL) Final HCT 08/16/2023 05:58:00 28.2 Below low normal 36.0-45.2 (%) Final MCV 08/16/2023 05:58:00 89.8 81.5-97.5 (fL) Final MCH 08/16/2023 05:58:00 27.7 27.0-34.0 (pg) Final MCHC 08/16/2023 05:58:00 30.9 32.0-36.0 (g/dL) Final RDW 08/16/2023 05:58:00 15.8 11.5-15.5 (%) Final Platelets 08/16/2023 05:58:00 357 140-400 (K/uL) Final MPV 08/16/2023 05:58:00 10.6 6.6-11.1 (fL) Final Nucleated erythrocytes/100 leukocytes [Ratio] in Blood by Automated count 08/16/2023 05:58:00 0 <=0 (/100 WBCs) Final Performing Location LABORATORY [facility] - [address] [place] [address]
--- OUTSIDE RECORDS SUMMARY | 2023-12-08 02:56 | External Medical Summary | Continuity of Care Document ---
Author Name Unknown Organization [address] Address [address] [place] [address] [place], [place] [id number] Care Team Providers Care Power Line Installer And Repairer Name Role Phone Natali Langston Brielle Primary Care Physician [phone] Encounter [facility] DANGR [id number] Date(s): 07/25/23 - 07/25/[address] [place] [facility] [address] [facility], [address] [place] [address] [place] [phone] Encounter Diagnosis CHF NYHA class II(Discharge Diagnosis) - 07/25/23 Chronic renal insufficiency(Discharge Diagnosis) - 07/25/23 Insulin-requiring or dependent type II diabetes mellitus(Discharge Diagnosis) - 07/25/23 Wound of right foot(Discharge Diagnosis) - 07/25/23 Discharge Disposition: Home or Self Care Attending Physician: SANDRA Pop Katy Marie Referring Physician: SANDRA Pop Katy Marie Allergies, Adverse Reactions, Alerts Substance Criticality Severity Reaction Reaction Severity Status amoxicillin hives Active clarithromycin 1 Act adrian Allergy Not found in Search 2 hives Active sulfa drugs turned red, itc hy on lower arms and legs Active Latex rash Active NyQuil Cold/Flu Relief rash Active 1Palpitations 2Arnold's 12 grain bread Assessment and Plan Extracted from: Title:TeleHealth Visit Note Author:SANDRA Pop Katy Marie Date:07/25/23 1.CHF NYHA class II Problem isChronic - not controlled Goal:maintenance Data:_ Plan:She is to see cardiology though she reports many issues with transportationto this appointment will be difficult for her. Currently on home O2,Lasix was stopped and torsemide was started during hospital stay. 2.Chronic renal insufficiency Problem isChronic - stable/controlled Goal:maintenance Data:_ Plan:Continue current regimen and avoidmedications that would cause injury to the kidneys 3.Insulin-requiring or dependent type II diabetes mellitus Problem isChronic - not controlled Goal:maintenance Data:_ Plan: Lantus and novologfor BSG control. Discussedinsulin administration along with CGM monitoring. Can recheck A1c in 3 months. Advised patient she should have an in person follow-up in about 2 months with her PCP. The biggest thing we accomplished today was a medication reconciliation along with education on insulin dosing andadministration. Immunizations Given and Recorded Vaccine Date Status [...] free 90 mcg/inh MDI Start: 03/15/23 9:08:00 AM EST, 2 puff, inhaled, qid, Disp# 1 each, Refills: 3, PRN: as needed for wheezing, Pharmacy: [facility] [id number] Start Date: 03/15/23 Stop Date: 07/13/23 Status: Ordered BD needle Ultra-Fine Pen Siria 32G x 4mm Start: 03/06/22 10:31:00 AM EST, See Instructions, Disp# 360 each, Refills: 3, use qid with insulinicd 10 E11.9, Pharmacy: [facility] 2229 Start Date: 03/06/22 Status: Ordered Combivent Respimat 20 mcg-100 mcg/inh inhalation aerosol Start: 03/15/23 9:00:00 AM EST, 2 puff, inhaled, bid, Disp# 1 each, Refills: 3, Pharmacy: [facility] 2229 Start Date: 03/15/23 Status: Ordered Elavil 50 mg oral tablet Start: 07/20/22 12:40:00 PM EDT, 2 tab, PO, qhs, Disp# 180 tab, Refills: 3, Pharmacy: [facility] 2229 Start Date: 07/20/22 Status: Ordered Farxiga 5 mg oral tablet TAKE 1 TABLET BY MOUTH ONCE DAILY Start Date: 10/19/21 Status: Ordered ferrous sulfate 325 mg (65 mg elemental iron) oral delayed release tablet Start: 03/07/23 2:22:00 PM EST, 1 tab, PO, bid, Disp# 60 tab, Refills: 3, Pharmacy: [facility] 2229 Start Date: 03/07/23 Stop Date: 07/05/23 Status: Ordered fluticasone 50 mcg/inh nasal spray Start: 12/03/16 9:42:19 AM EDT, See Instructions, Disp# 16, Refills: 2, 2 spray each nostril Daily,x30 day, [facility] [address] Start Date: 12/03/16 Status: Ordered folic acid 1 mg oral tablet Start: 03/07/23 2:21:00 PM EST, 1 tab, PO, Daily, Disp# 30 tab, Refills: 2, Pharmacy: [facility] 2229 Start Date: 03/07/23 Stop Date: 06/05/23 Status: Ordered FreeStyle Davy 2 - 14 day sensor Start: 10/31/22 4:42:00 PM EDT, See Instructions, Disp# 3 kit, Refills: 0, place q 2 weeks Start Date: 10/31/22 Status: Ordered Lantus Solostar Pen 100 units/mL subcutaneous solution Start: 07/25/23 1:31:00 PM EDT, 20 unit =, subQ, Daily, Disp# 15 mL, Refills: 3, Pharmacy: [facility] 2229 Start Date: 07/25/23 Stop Date: 07/19/24 Status: Ordered Microlet Lancets 100 ct Start: 12/07/22 3:22:00 PM EDT, See Instructions, Disp# 100 each, Refills: 3, check blood sugars TID, Pharmacy: [facility] 2229 Start Date: 12/07/22 Status: Ordered NovoLOG FlexPen 100 units/mL injectable solution INJECT 30 UNITS UNDER THE SKIN IN THE MORNING, 45 UNITS WITH LUNCH, AND 40 UNITS IN THE EVENING. MAX DAILY DOSE OF 115 UNITS Start Date: 07/04/22 Status: Ordered omeprazole 20 mg oral delayed release capsule Start: 03/07/23 2:22:00 PM EST, See Instructions, Disp# 90 cap, Refills: 0, Take 1 capsule by mouthonce daily, Pharmacy: [facility] 2229 Start Date: 03/07/23 Status: Ordered One Touch Verio Test Strips Start: 12/07/22 3:21:00 PM EDT, See Instructions, Disp# 100 strip, Refills: 3, check blood sugars TID, Pharmacy: [facility] 2229 Start Date: 12/07/22 Status: Ordered Santyl 250 units/g topical ointment Start: 08/25/22 11:29:00 AM EDT Start Date: 08/25/22 Status: Ordered simvastatin 40 mg oral tablet Start: 07/25/23 1:32:00 PM EDT, 1 tab, PO, qhs, Disp# 90 tab, Refills: 3, Pharmacy: [facility] Start Date: 07/25/23 Stop Date: 07/19/24 Status: Ordered Synthroid 175 mcg (0.175 mg) oral tablet Start: 07/14/22 9:57:00 AM EDT, 1 tab, PO, Daily, Disp# 90 tab, Refills: 3, Pharmacy: [facility] 2229 Start Date: 07/14/22 Status: Ordered torsemide 60 mg oral tablet Start: 07/25/23 1:45:00 PM EDT, 1 tab, PO, Daily, Disp# 90 tab, Refills: 3, Pharmacy: [facility] 2229 Start Date: 07/25/23 Stop Date: 07/19/24 Status: Ordered Problem List Condition Confirmation Course [...] Confirmed Active Stress at work Confirmed Active CHF NYHA class II Confirmed Active Tachycardia Confirmed Active Tinea pedis of left foot Confirmed Active Tobacco user Confirmed Active Post traumatic stress disorder (PTSD) Confirmed Active Trigger finger Confirmed Active Diabetic ulcer of heel Confirmed Active Decreased vision Confirmed Active Ambulatory dysfunction Confirmed Active Weight disorder Confirmed Active Diagnosis Diagnosis Type Effective Dates Health Status Clinical Service Informant CHF NYHA class II Discharge Diagnosis 07/25/23 Non-Specified Chronic renal insufficiency Discharge Diagnosis 07/25/23 Non-Specified Insulin-requiring or dependent type II diabetes mellitus Discharge Diagnosis 07/25/23 Non-Specified Wound of right foot Discharge Diagnosis 07/25/23 Non-Specified Procedures Procedure Date Related Diagnosis Body Site [...] desiree Sex Female 12nd hand during childhood [facility] Outpt Note * SANDRA Pop, Ashley Salazar: PERFORM Event Display: FCM Outpt Note Authored Date: [id number] TeleHealth Visit Note I have confirmed the patients name and date of . The patient has consented to this service,and I have advised the patient that this is a billable visit for which they may be subject to a copay. The patient initiated this visit after they were informed of the availability of TeleHealth for this medically necessary visit. I am located at my office. The patient is located at home. This visit was conducted via live audio/video technology via [employer]. Chief Complaint DC followup History of Present Illness Jasper presentstoday for DC follow-up. She was in alf and went into a CHF exacerbation andwas taken to the hospital. She was then discharged to another alf. She is now back in her apartment. She came home yesterday afternoon. Havingtrouble with her insulin regimens Levemir (54U in am and 45U in afternoon)- was changed to Lantus (20U once daily) She has been having a difficult time with SSI. Plan to go back to previous dosing. She uses a CGM. Getting home PT and OT She has been cutting out sugars. Trying to eat more fresh fruit. She has switched from Coke.eating low sodium would like DME for hospital bed. She uses [facility]. She is looking into Meals on Wheels She follows with Cardiology. Has a wound on her foot with a dressing. Would benefit from home nursing to get dressing changes. Review of Systems A total of 10 systems were reviewed. Pertinent positive and negatives addressed in HPI, all other findings are negative. Physical Exam Constitutional: Alert and oriented, No acute distress, Well-appearing, Normal mood and affect Respiratory: no visible cyanosis, no pursed lip breathing, no labored breathing, she does have homeO2 on [place] 2L Due to the nature of telehealth visit, limited physical exam can be performed. Assessment/Plan 1.CHF NYHA class II Problem isChronic - not controlled Goal:maintenance Data:_ Plan:She is to see cardiology though she reports many issues with transportationto this appointment will be difficult for her. Currently on home O2,Lasix was stopped and torsemide was started during hospital stay. 2.Chronic renal insufficiency Problem isChronic - stable/controlled Goal:maintenance Data:_ Plan:Continue current regimen and avoidmedications that would cause injury to the kidneys 3.Insulin-requiring or dependent type II diabetes mellitus Problem isChronic - not controlled Goal:maintenance Data:_ Plan: Lantus and novologfor BSG control. Discussedinsulin administration along with CGM monitoring. Can recheck A1c in 3 months. Advised patient she should have an in person follow-up in about 2 months with her PCP. The biggest thing we accomplished today was a medication reconciliation along with education on insulin dosing andadministration. Attestation I attest that I have spent 43 minutes in care and coordination of this patient. 8min previsit: chart review and preparation 32min [id number]: obtaining HPI, PE, discussing Assessment and Plan, and other pertinent discussions/decisionsr/t care 3min postvisit: coordination of care, orders, and documentation/paperwork Problem List/Past Medical History Ongoing Acute asthma Acute URI Ambulatory dysfunction Anemia Anxiety Arthritis Asthma Atypical chest pain B12 deficiency BPPV (benign paroxysmal positional vertigo) Bronchitis Cataract CHF NYHA class II Chronic renal insufficiency Colon polyp Decreased vision [...] with hyperglycemia Upper respiratory disease Weight disorder Resolved Diabetes Left knee pain Procedure/Surgical History Care of open wound| Service Date: 11/2022 COLONOSCOPY & POLYPECTOMY| Service Date: 02/13/2022Eye examination| Service Date: 12/30/2018MRI of lumbar spine| Service Date: 11/06/2018Colonoscopy| Service Date: 12/06/2016Chest x-ray| Service Date: 07/17/2016Lumbar Spine X-ray| Service Date: 05/17/2016Sacrum and sacroiliac joints X-ray| Service Date: 05/17/2016Dilation andcurettage of uterus| Service Date: 03/29/2016Imaging,right tibia/fibula| Service Date: 01/27/2016Mammogram| Service Date: 08/25/2015Ultrasound| Service Date: 02/08/2015Repair of rotator cuff of shoulder| Service Date: 07/22/2013rthroscopic repair of meniscus Medications albuterol(albuterol CFC free 90 mcg/inh MDI), 2 puff, inhaled, qid, PRN, 3 refills albuterol-ipratropium(Combivent Respimat 20 mcg-100 mcg/inh inhalation aerosol), 2 puff, inhaled, bid, 3 refills amitriptyline(Elavil 50 mg oral tablet), 100 mg= 2 tab, PO, qhs, 3 refills bumetanide(bumetanide 0.5 mg oral tablet), 0.5 mg= 1 tab, PO, Daily collagenase topical(Santyl 250 units/g topical ointment) dapagliflozin(Farxiga 5 mg oral tablet) diabetes supplies(One Touch Verio Test Strips), See Instructions, 3 refills diabetes supplies(Microlet Lancets 100 ct), See Instructions, 3 refills diabetes supplies(FreeStyle Davy 2 - 14 day sensor), See Instructions ferrous sulfate(ferrous sulfate 325 mg (65 mg elemental iron) oral delayed release tablet), 325 mg=1 tab, PO, bid, 3 refills fluticasone nasal(fluticasone 50 mcg/inh nasal spray), See Instructions, 2 refills folic acid(folic acid 1 mg oral tablet), 1 mg= 1 tab, PO, Daily, 2 refills insulin aspart(NovoLOG FlexPen 100 units/mL injectable solution) insulin glargine(Lantus Solostar Pen 100 units/mL subcutaneous solution), 20 unit, subQ, Daily, 3 refills levothyroxine(Synthroid 175 mcg (0.175 mg) oral tablet), 175 mcg= 1 tab, PO, Daily, 3 refills omeprazole(omeprazole 20 mg oral delayed release capsule), See Instructions simvastatin(simvastatin 40 mg oral tablet), 40 mg= 1 tab, PO, qhs, 3 refills syringe needles(BD needle Ultra-Fine Pen Siria 32G x 4mm), See Instructions, 3 refills Allergies Allergy Not found in Searchhives Latexrash [...] due02/03/21and every 731day Due Adult COVID-19 Vaccination due07/25/23Unknown Frequency Adult Social Determinants of Health Screening due07/25/23Unknown Frequency Adult Tdap/Td Vaccine due07/25/23Unknown Frequency Cervical Cancer Screening due07/25/23Unknown Frequency Hepatitis C Screening due07/25/23One-time only Pneumococcal Vaccine Adults and Adolescents with Chronic Illness due07/25/23One-time only Shingles Vaccine due07/25/23One-time only Due In Future Adult Influenza Vaccine not due until09/09/23and every 1year Diabetes Management A1c not due until12/14/23and every 366day Body Mass Index not due until04/04/24and every 366day Satisfied(in the past 1 year) Satisfied Adult Influenza Vaccine on12/13/22.Satisfied by SARTHAK Mckinney, Angelica Body Mass Index on04/04/23.Satisfied by CATHERINE Sanders Angela Diabetes Management A1c on12/13/22.Satisfied by Contributor[employer]system, [employer] Diabetes Nephropathy Management on10/19/22.Satisfied by Contributor[employer]system, [id number] Electronic Signature on File CC: Natali Langston DO [address] [place] [address] Electronically Reviewed/Signed by: SANDRA Wren Author Signature Dt/Tm:07/25/2023 01:44 PM Department of Family Medicine [facility] Patient Care team information Care Team Personnel Name: DO Langston Kristen M Position: Physician - Family Med Member Role: Primary Care Provider Address: Address: [address] [place] [address] [place] Name: SANDRA Pop Katy Marie Position: Nurse Pract - Family Med Member Role: Lifetime Relationship Address: Address: [address] [place] [address] Name: SANDRA Llamas Shari A Position: Nurse Pract - Family Med Member Role: Lifetime Relationship Address: Address: [address] [place] [address] [place] Care Team Related Persons Name: ALEISHA ACEVEDO Address: home [place], [place] [phone]"
--- OUTSIDE RECORDS SUMMARY | 2023-12-08 02:56 | External Medical Summary ---
Author Name Unknown Address Unknown Organization : Laboratory Report Ordering Provider Test Date Status NICK CERRATO 08/15/2023 16:43:05 Final Observation Date Value Abnormality Reference (Units ) Status Glucose Point of Care 08/15/2023 16:43:05 174 Above high normal 70-120 (mg/dL) Final Performing Location
--- OUTSIDE RECORDS SUMMARY | 2023-12-08 02:56 | External Medical Summary ---
Author Name Unknown Address Unknown Organization K1F:LABORATORY [facility] - [address] [place] [address] [address] [place] [address] Laboratory Report Ordering Provider Test Date Status LEONIDAS FAJARDO 08/15/2023 03:47:30 Final Rheumatoid factor at a level above 50 [...] definitively correlate with clinical severity of disease. Observation Date Value Abnormality Reference (Units ) Status Fibrin D-dimer FEU [Mass/volume] in Platelet poor plasma by Immunoassay 08/15/2023 03:47:30 1.70 Above high normal <0.50 (ug/mL FEU) Final Performing Location LAB[facility]ATORY [facility] - [address] [facility] [address] [place] [address]
--- OUTSIDE RECORDS SUMMARY | 2023-12-08 02:56 | External Medical Summary ---
Author Name Unknown Address Unknown Organization : Laboratory Report Ordering Provider Test Date Status NICK CERRATO 08/15/2023 07:25:32 Final Observation Date Value Abnormality Reference (Units ) Status Glucose Point of Care 08/15/2023 07:25:32 101 70-120 (mg/dL) Final Performing Location
--- OUTSIDE RECORDS SUMMARY | 2023-12-08 02:56 | External Medical Summary ---
Author Name Unknown Address Unknown Organization : Laboratory Report Ordering Provider Test Date Status VITO MENDOZA 08/17/2023 21:16:11 Final Observation Date Value Abnormality Reference (Units ) Status Glucose Point of Care 08/17/2023 21:16:11 144 Above high normal 70-120 (mg/dL) Final Performing Location
--- OUTSIDE RECORDS SUMMARY | 2023-12-08 02:56 | External Medical Summary ---
Author Name Unknown Address Unknown Organization K1F:LABORATORY [facility] - [address] [place] [address] Laboratory Report Ordering Provider Test Date Status LEONIDAS FAJARDO 08/15/2023 04:50:12 Final Exclude Heart Failure: <300 pg/mL
Diagnose Heart Failure:
Age <50 yr: >450 pg/mL
50-75 yr: >900 pg/mL
>75 yr: >1800 pg/mL
GFR is 30-59 mL/min: >1200 pg/mL or Age- adjusted values
GFR <30 mL/min: do not use, not reliable

Prognostic threshold: 1000 pg/mL Observation Date Value Abnormality Reference (Units ) Status BNP, Pro-hormone 08/15/2023 04:50:12 1808 Above high no rmal <300 (pg/mL) Final Performing Location LABORATORY [facility] - [address] [place] [address]
--- OUTSIDE RECORDS SUMMARY | 2023-12-08 02:56 | External Medical Summary ---
Author Name Unknown Address Unknown Organization K1F:LABORATORY [facility] - [address] [place] [place] [address] Laboratory Report Ordering Provider Test Date Status EVY FERNANDEZ 08/16/2023 05:58:00 Final Observation Date Value Abnormality Reference (Units ) Status BUN 08/16/2023 05:58:00 62 Above high normal 6-20 (mg/dL) Final Creatinine 08/16/2023 05:58:00 2.1 Above high normal 0.5-1.0 (mg/dL) Final Glomerular filtration rate/1.73 sq M.predicted [Volume Rate/Area] in Serum, Plasma or Blood by Creatinine-based formula (CKD-EPI) 08/16/2023 05:58:00 27 Below low normal >=60 (mL/min) Final eGFR is calculated based on the CKD-EPI 2020 equation Sodium 08/16/2023 05:58:00 136 135-146 (m mol/L) Final Potassium 08/16/2023 05:58:00 5.4 Above high normal 3. 5-5.1 (mmol/L) Final Cl 08/16/2023 05:58:00 105 98-107 (mm ol/L) Final CO2 08/16/2023 05:58:00 19 Below low normal 22- 32 (mmol/L) Final Anion gap 08/16/2023 05:58:00 12 7-15 (mmol /L) Final Glucose 08/16/2023 05:58:00 114 70-120 (mg /dL) Final Calcium 08/16/2023 05:58:00 8.7 8.4-10.2 ( mg/dL) Final Performing Location LABORATORY [facility] - [address] [place] [address]
--- OUTSIDE RECORDS SUMMARY | 2023-12-08 02:56 | External Medical Summary ---
Author Name Unknown Address Unknown Organization : Laboratory Report Ordering Provider Test Date Status VITO MENDOZA 08/17/2023 07:39:53 Final Observation Date Value Abnormality Reference (Units ) Status Glucose Point of Care 08/17/2023 07:39:53 81 70-120 (mg/dL) Final Performing Location
--- OUTSIDE RECORDS SUMMARY | 2023-12-08 02:56 | External Medical Summary ---
Author Name Unknown Address Unknown Organization : Laboratory Report Ordering Provider Test Date Status VITO MENDOZA 08/16/2023 21:11:16 Final Observation Date Value Abnormality Reference (Units ) Status Glucose Point of Care 08/16/2023 21:11:16 155 Above high normal 70-120 (mg/dL) Final Performing Location
--- OUTSIDE RECORDS SUMMARY | 2023-12-08 02:56 | External Medical Summary ---
Author Name Unknown Address Unknown Organization K1F:LABORATORY [facility] - [address] [place] [address] Laboratory Report Ordering Provider Test Date Status REJIVENKATASHERMAN 08/17/2023 06:18:00 Final Observation Date Value Abnormality Reference (Units ) Status WBC, Total 08/17/2023 06:18:00 9.34 4.00-10.80 (K/uL) Final RBC 08/17/2023 06:18:00 2.70 3.85-5.15 (M/uL) Final Hemoglobin 08/17/2023 06:18:00 7.6 Below low normal 12.0-15.3 (g/dL) Final HCT 08/17/2023 06:18:00 24.2 Below low normal 36.0-45.2 (%) Final MCV 08/17/2023 06:18:00 89.6 81.5-97.5 (fL) Final MCH 08/17/2023 06:18:00 28.1 27.0-34.0 (pg) Final MCHC 08/17/2023 06:18:00 31.4 32.0-36.0 (g/dL) Final RDW 08/17/2023 06:18:00 15.7 11.5-15.5 (%) Final Platelets 08/17/2023 06:18:00 314 140-400 (K/uL) Final MPV 08/17/2023 06:18:00 10.4 6.6-11.1 (fL) Final Nucleated erythrocytes/100 leukocytes [Ratio] in Blood by Automated count 08/17/2023 06:18:00 0 <=0 (/100 WBCs) Final Performing Location LAB[facility]ATORY [facility] - [address] [place] [address]
--- OUTSIDE RECORDS SUMMARY | 2023-12-08 02:56 | External Medical Summary ---
Author Name Unknown Address Unknown Organization K1F:LABORATORY [facility] - [address] [place] [place] [address] Laboratory Report Ordering Provider Test Date Status VITO MENDOZA 08/18/2023 06:37:00 Final Observation Date Value Abnormality Reference (Units ) Status ABO 08/18/2023 06:37:00 A Final RH 08/18/2023 06:37:00 Positive Final Performing Location LABORATORY [facility] - [address] [place] [place] [address]
--- OUTSIDE RECORDS SUMMARY | 2023-12-08 02:56 | External Medical Summary ---
Author Name Unknown Address Unknown Organization : Laboratory Report Ordering Provider Test Date Status VITO MENDOZA 08/17/2023 16:28:53 Final Observation Date Value Abnormality Reference (Units ) Status Glucose Point of Care 08/17/2023 16:28:53 176 Above high normal 70-120 (mg/dL) Final Performing Location
--- OUTSIDE RECORDS SUMMARY | 2023-12-08 02:56 | External Medical Summary ---
Author Name Unknown Address Unknown Organization K1F:LABORATORY [facility] - [address] [place] [address] Laboratory Report Ordering Provider Test Date Status LEONIDAS FAJARDO 08/15/2023 03:47:30 Final Observation Date Value Abnormality Reference (Units ) Status BUN 08/15/2023 03:47:30 64 Above high normal 6-20 (mg/dL) Final Creatinine 08/15/2023 03:47:30 2.2 Above high normal 0.5-1.0 (mg/dL) Final Glomerular filtration rate/1.73 sq M.predicted [Volume Rate/Area] in Serum, Plasma or Blood by Creatinine-based formula (CKD-EPI) 08/15/2023 03:47:30 25 Below low normal >=60 (mL/min) Final eGFR is calculated based on the CKD-EPI 2020 equation Sodium 08/15/2023 03:47:30 133 Below low normal 135 -146 (mmol/L) Final Potassium 08/15/2023 03:47:30 5.2 Above high normal 3. 5-5.1 (mmol/L) Final Cl 08/15/2023 03:47:30 105 98-107 (mm ol/L) Final CO2 08/15/2023 03:47:30 18 Below low normal 22- 32 (mmol/L) Final Anion gap 08/15/2023 03:47:30 10 7-15 (mmol /L) Final Glucose 08/15/2023 03:47:30 127 Above high normal 70 -120 (mg/dL) Final Albumin 08/15/2023 03:47:30 2.2 Below low normal 3.8 -5.0 (g/dL) Final AST (Aspartate aminotransferase) 08/15/2023 03:47:30 29 10-35 (U/L) Fin al Alk Phos 08/15/2023 03:47:30 173 Above high normal 35 -130 (U/L) Final Bilirubin, Total 08/15/2023 03:47:30 <0.2 <=1 .2 (mg/dL) Final Calcium 08/15/2023 03:47:30 8.7 8.4-10.2 ( mg/dL) Final Protein 08/15/2023 03:47:30 7.2 6.0-8.3 (g /dL) Final ALT (Alanine aminotransferase) 08/15/2023 03:47:30 8 Below low normal 10-35 (U/L) Final Performing Location LABORATORY [facility] - [facility] [place] [address]
--- OUTSIDE RECORDS SUMMARY | 2023-12-08 02:56 | External Medical Summary ---
Author Name Unknown Address Unknown Organization : Laboratory Report Ordering Provider Test Date Status VITO MENDOZA 08/16/2023 11:48:09 Final Observation Date Value Abnormality Reference (Units ) Status Glucose Point of Care 08/16/2023 11:48:09 186 Above high normal 70-120 (mg/dL) Final Performing Location
--- OUTSIDE RECORDS SUMMARY | 2023-12-08 02:56 | External Medical Summary ---
Author Name Unknown Address Unknown Organization K1F:LABORATORY [facility] - [address] [place] [address] Laboratory Report Ordering Provider Test Date Status REJIVITO 08/17/2023 06:18:00 Final Observation Date Value Abnormality Reference (Units ) Status BUN 08/17/2023 06:18:00 62 Above high normal 6-20 (mg/dL) Final Creatinine 08/17/2023 06:18:00 2.0 Above high normal 0.5-1.0 (mg/dL) Final Glomerular filtration rate/1.73 sq M.predicted [Volume Rate/Area] in Serum, Plasma or Blood by Creatinine-based formula (CKD-EPI) 08/17/2023 06:18:00 28 Below low normal >=60 (mL/min) Final eGFR is calculated based on the CKD-EPI 2020 equation Sodium 08/17/2023 06:18:00 137 135-146 (m mol/L) Final Potassium 08/17/2023 06:18:00 4.8 3.5-5.1 (m mol/L) Final Cl 08/17/2023 06:18:00 105 98-107 (mm ol/L) Final CO2 08/17/2023 06:18:00 20 Below low normal 22- 32 (mmol/L) Final Anion gap 08/17/2023 06:18:00 12 7-15 (mmol /L) Final Glucose 08/17/2023 06:18:00 94 70-120 (mg /dL) Final Calcium 08/17/2023 06:18:00 8.6 8.4-10.2 ( mg/dL) Final Performing Location LABORATORY [facility] - [address] [place] [address]
--- OUTSIDE RECORDS SUMMARY | 2023-12-08 02:56 | External Medical Summary ---
Author Name Unknown Address Unknown Organization : Laboratory Report Ordering Provider Test Date Status NICK CERRATO 08/15/2023 11:13:50 Final Observation Date Value Abnormality Reference (Units ) Status Glucose Point of Care 08/15/2023 11:13:50 179 Above high normal 70-120 (mg/dL) Final Performing Location
--- OUTSIDE RECORDS SUMMARY | 2023-12-08 02:56 | External Medical Summary ---
Author Name Unknown Address Unknown Organization K1F:LABORATORY [facility] - [address] [place] [address] Laboratory Report Ordering Provider Test Date Status LEONIDAS FAJARDO 08/15/2023 03:47:30 Final Observation Date Value Abnormality Reference (Units ) Status Troponin T 08/15/2023 03:47:30 145 Above upper panic limits <=14 (ng/L) Final Performing Location LABORATORY [facility] - [address] [place] [address]
--- OUTSIDE RECORDS SUMMARY | 2023-12-08 02:56 | External Medical Summary ---
Author Name Unknown Address Unknown Organization K01:[facility] [place] [address] [place] [address] Laboratory Report Ordering Provider Test Date Status VITO MENDOZA 08/16/2023 05:58:00 Final Observation Date Value Abnormality Reference (Units ) Status Erythrocyte sedimentation rate by Photometric method 08/16/2023 05:58:00 77 Above high normal <30 (mm/hour) Final Performing Location LABORATORY [facility] - [address] [place] [address]
--- OUTSIDE RECORDS SUMMARY | 2023-12-08 02:56 | External Medical Summary ---
Author Name Unknown Address Unknown Organization K1F:LABORATORY [facility] - [address] [place] [address] Laboratory Report Ordering Provider Test Date Status EVY FERNANDEZ 08/16/2023 05:58:00 Final Observation Date Value Abnormality Reference (Units ) Status Troponin T 08/16/2023 05:58:00 151 Above upper panic limits <=14 (ng/L) Final Performing Location LABORATORY [facility] - [address] [place] [address]
--- OUTSIDE RECORDS SUMMARY | 2023-12-08 02:56 | External Medical Summary ---
Author Name Unknown Address Unknown Organization K1F:LABORATORY [facility] - [address] [place] [address] Laboratory Report Ordering Provider Test Date Status VITO MENDOZA 08/16/2023 05:58:00 Final Observation Date Value Abnormality Reference (Units ) Status CRP, low-sensitivity 08/16/2023 05:58:00 17 Above high normal <=5 (mg/L) Final Performing Location LABORATORY [facility] - [address] [place] [address]
--- OUTSIDE RECORDS SUMMARY | 2023-12-08 02:56 | External Medical Summary ---
Author Name Unknown Address Unknown Organization : Laboratory Report Ordering Provider Test Date Status VITO MENDOZA 08/16/2023 16:53:58 Final Observation Date Value Abnormality Reference (Units ) Status Glucose Point of Care 08/16/2023 16:53:58 139 Above high normal 70-120 (mg/dL) Final Performing Location
--- OUTSIDE RECORDS SUMMARY | 2023-12-08 02:56 | External Medical Summary ---
Author Name Unknown Address Unknown Organization : Laboratory Report Ordering Provider Test Date Status VIOT MENDOZA 08/16/2023 08:03:26 Final Observation Date Value Abnormality Reference (Units ) Status Glucose Point of Care 08/16/2023 08:03:26 118 70-120 (mg/dL) Final Performing Location
--- NOTE | 2023-12-08 03:05 | Billing Data ---
Date of Service December 08, 2023 Coding Level of Care Code 48427 INT INP/OBS CARE
[2023-12-08] MEDS: metroNIDAZOLE 500 MG/100 ML BAG IV SCH (06:15)
[2023-12-08] MEDS: LEVOTHYROXINE SODIUM 175 MCG TABLET PO SCH (06:15)
[2023-12-08 07:59] LABS: Basophils # (auto) 0.07 K/uL (0.00-0.20); Basophils % (auto) 0.6 %; Eosinophils # (auto) 0.17 K/uL (0.00-0.50); Eosinophils % (auto) 1.5 %; Hematocrit (blood only) 23.1 % (37.0-47.0); Hemoglobin 7.2 g/dl (12.0-16.0); Immature Granulocytes # (auto) 0.17 K/uL (0.01-0.20); Immature Granulocytes % (auto) 1.5 %; Lymphocytes # (auto) 1.98 K/uL (1.20-3.40); Mean Corpuscular Hemoglobin 26.8 pg (25.0-34.0); Mean Corpuscular Hgb Conc 31.2 g/dL (32.0-36.0); Mean Corpuscular Volume 85.9 fL (80.0-100.0); Mean Platelet Volume 9.9 fL (9.4-12.4); Monocytes # (auto) 0.87 K/uL (0.11-0.59); Monocytes % (auto) 7.9 %; Neutrophils # (auto) 7.75 K/uL (1.40-6.50); Neutrophils % (auto) 70.5 %; Platelet Count 449 K/uL (130-400); RDW Coefficient of Variation 15.3 % (11.5-14.5); RDW Standard Deviation 47.8 fL (36.4-46.3); Red Blood Count 2.69 M/uL (4.20-5.40); White Blood Count 11.01 K/ul (4.8-10.8)
[2023-12-08] MEDS ORDERED: Nursing to Pharmacy Communication SCH (08:00)
[2023-12-08 08:20] LABS: Albumin Globulin Ratio 0.5 (0.9-2); Albumin Level 2.1 gm/dl (3.4-5.0); BUN Creatinine Ratio 31.5 (10-20); Bilirubin,Total 0.3 mg/dl (0.2-1.0); C Reactive Protein 14.03 mg/dl (0-0.5); Calcium 8.5 mg/dl (8.6-10.3); Creatinine Clr Calc Pharmacy 26.8 ml/min; Est GFR (Non-African American) 20.7 ml/min; Potassium 3.1 mmol/L (3.5-5.1); Total Protein 6.1 gm/dl (6.0-8.3)
[2023-12-08] MEDS: LANTUS PER UNIT CHARGE SQ SCH (08:31)
[2023-12-08] MEDS: PANTOprazole 40 MG TAB PO SCH (08:33)
[2023-12-08] MEDS: FERROUS SULFATE 325 MG TAB PO SCH (08:33)
[2023-12-08] MEDS: AMITRIPTYLINE HCL 25 MG TAB PO SCH (08:33)
[2023-12-08] MEDS: DICLOFENAC SOD 1% GEL 100 GM TUBE EXT SCH (08:33)
[2023-12-08] MEDS: FLUTICASONE PROPIONATE NA SPR 16 GM BTL SCH (08:34)
[2023-12-08 08:36] LABS: RBC Morphology Unremarkable
[2023-12-08] MEDS ORDERED: SODIUM CHLORIDE 0.9% 250 ML IV PRN (09:08)
[2023-12-08] MEDS: ONDANSETRON INJ 2 MG/ML 2 ML VIAL IV STA (09:10)
[2023-12-08 09:21] LABS: Estimated Average Glucose 160 mg/dl; Hemoglobin A1C 7.2 % (4.5-5.6)
[2023-12-08] MEDS: POTASSIUM CHLORIDE CRTAB 20 MEQ TABCR PO STA (10:04)
[2023-12-08] MEDS: CEFEPIME 1,000 MG in SYRINGE 0 ML IV SCH (10:06)
--- NOTE | 2023-12-08 10:14 | Emergency Department Note ---
ED Visit Note I agree with the diagnosis and management decisions and have been personally involved in the case. Imaging studies were reviewed. CT abd pelvis reveals liquid stool through out the colon, L4 endplate changes that are likely degenerative. CXR reveals some congestive changes. DVT studies are negative. A dose of IV daptomycin was added to the pt's regimen as she is currently taking cefdinir and doxycycline. Pt will be evaluated by the hospitalist service for further management. Please see Eleanor Macdonald PA-C's notes for further details of the history, physical and visit. .
--- NOTE | 2023-12-08 10:33 | Hospitalist Progress Note ---
Date of Service December 08, 2023 Assessment & Plan (1) Cellulitis: (2) Acute kidney injury superimposed on chronic kidney disease: (3) Uncontrolled diabetes mellitus with hyperglycemia, with long-term current use of insulin: (4) C. difficile colitis: (5) Pressure ulcer: (6) Diabetic ulcer of right heel: (7) Anemia: (8) Anemia: (9) (HFpEF) heart failure with preserved ejection fraction: (10) History of osteomyelitis: (11) UTI (urinary tract infection): Plan # [facility]: [facility] Right medial thigh is erythematous with significant induration and eschar MRI right femur without contrast to rule out abscess MRSA swab ordered, pending Daptomycin IV q24h; hold statin Acetaminophen and Dilaudid as needed for pain General surgery consulted for potential debridement - no intervention indicated # Acute kidney injury superimposed on chronic kidney disease: Avoid nephrotoxic agents for possible Hold lisinopril IVF with LR at 125mL/hr x 2 L Trend BMP # Uncontrolled diabetes mellitus with hyperglycemia, with long-term current use of insulin: Last A1c at 7.9% on 05/04/2023 Glucose 191 on admission Patient normally on Lantus 10u QAM Will dose reduce to Lantus 5u QAM in the setting of PERLITA SSI; with target BSG range 110-140mg/dL, CF 25, carb ratio 10 T2DM diet BSG ACHS Adjust regimen as needed # C. difficile colitis: Repeat C. Diff ordered/pending Contact isolation precautions Vancomycin p.o. QID # UTI (urinary tract infection): Burning with urination x 2 days UCx on 05/07/23 grew pansensitive Proteus mirabilis IVF (as above) # Pressure ulcer: Wound care nurse consult appreciated Daily wound care # Diabetic ulcer of right heel: Wound culture on 07/28/2023 grew Pseudomonas Wound culture on 01/04/2023 grew MSSA susceptible to daptomycin Daily wound care # Anemia: Chronic disease Hgb 9.3 on arrival, now in the 7s Type and Cross 2 units, transfuse below 7 Trend CBC # (HFpEF) heart failure with preserved ejection fraction: Last echocardiogram on 03/19/2023 revealed LVH of 65-70% Daily weights Strict I&O monitoring Hold Bumex in the setting of PERLITA # History of osteomyelitis: A/P CT revealed erosive changes of L4 Will obtain lumbar spine MRI without contrast to assess for discitis/osteomyelitis Uric acid level ordered to assess for gout Plan Disposition: Admit to PCU telemetry DNR/DNI Heart healthy, T2DM diet VTE PPx: Heparin 5000u SQ q12h Admission and Anticipated Discharge Date Admission Date: December 07, 2023 Supervising Physician Co-Signing Physician Notes I personally examined the patient and verified all parson points of history and exam, discussed case, and agree with decision making with Dr Pickens Still has a lot of pain in her right middle thighbut less than yesterday by a little bit. Nausea has improved. Vitals noted, in general she is awake and alert fatigued to note clear distress. Breathing unlabored no accessory muscle use good effort. Right medial thigh with large area of bruising a little bit of erythema some open ulcerations and sloughingand is quite tender. No crepitus no discrete areas of fluctuance. Right lower extremity cellulitiscontinue daptomycin. No clear need for gram- negative or anaerobic coverage. Appreciate surgical backup, await MRIbut doubt there will be anything that requires drainage/source control. Continue supportive care and pain control. Abnormal urinalysisFoley in, hard to gauge if she would have any urinary symptoms. Await culture and resume gram-negative treatment if she is showing dominant growth or if new symptoms develop anemiaslightly lower than her baseline range, no signs of blood loss. Nothing consistent with hemolysis. Ferritin was 93 in April, B12 was 743 in Marchso doubt deficiencies, although certainly given her course as a patient over the last year, and iron deficiency certainly could be the case. Continue to follow, consider repeating iron levels depending on her clinical course. C. difficilecontinue vancomycin DVT prophylaxisheparin subcu Subjective Patient seen and evaluated at bedside this morning. No acute events overnight. Patient with vomiting for first time since admission while I was in the room this morning. Bilious - non bloody. Does not report zaynab abdominal pain. States leg pain well controlled at this time. MRI pending. Review of Systems Review of Systems: reviewed, per HPI Physical Exam Physical Exam: Constitutional: ill-appearing, vomiting HEENT: NCAT, no conjunctival injection CV: pale but clinically well perfused Resp: no increased WOB GI: non distended MSK: no gross deformities appreciated Skin: warm, dry, no rash appreciated Neuro: alert, oriented, no focal neurologic deficit appreciated Results & Data Results & Data Vital Signs (Past 12 Hours) Vital Signs Temp Pulse Pulse Resp BP Pulse Ox O2 Del Method 12/08/23 08:00 37.0 C 71 18 134/74 97 Room Air 12/08/23 07:35 76 12/08/23 00:31 37.1 C 79 17 176/75 H 100 Room Air 12/08/23 00:05 Room Air Resident Activity Tracking Resident Involvement: Resident Care Provided Care Provided: Adult Hospital Medicine (5) Pressure ulcer Pressure injury location: sacral region (6) Diabetic ulcer of right heel Diabetes mellitus type: type 2 Non-pressure ulcer stage: with fat layer exposed Qualified Code(s): E11.621 - Type 2 diabetes mellitus with foot ulcer; L97.412 - Non-pressure chronic ulcer of right heel and midfoot with fat layer exposed (7) Anemia Anemia type: due to chronic kidney disease Chronic kidney disease stage: stage 4 (severe) Qualified Code(s): N18.4 - Chronic kidney disease, stage 4 (severe); D63.1 - Anemia in chronic kidney disease
--- NOTE | 2023-12-08 11:01 | Surgery Progress Note ---
Date of Service December 08, 2023 Assessment & Plan (1) History of osteomyelitis: (2) Pressure ulcer: (3) Morbid obesity with BMI of 60.0-69.9, adult: (4) Unspecified open wound, right thigh, initial encounter: Plan No abscess formation or significant necrotic tissue to surgically debride. In addition the patient's body habitus will make her at high risk for causing further tissue destruction to any surgically debrided wound causing the need for further and deeper tissue debridement and loss of tissue. Would recommend application of Santyl to both areas at the sacrum as well as the necrotic eschar at the medial thigh. Cover the sacral area with dry gauze and secured in place with a mild adhesive dressing. Attempt to offload and rotate off of sacrum as frequently as possible although this will not be easy. Protect the right inner thigh wound from the extensions on the rectal tube as this area was pressing on her inner thigh. Apply a covering for this area to protect it from other surrounding pressures including up against the contralateral thigh. Admission and Anticipated Discharge Date Admission Date: December 07, 2023 Subjective I have seen and examined this patient this a.m. Physical Exam Constitutional: Very large body habitus, very little mobility. Patient cannot move herself around in the bed. Skin: At the right medial thigh, there is bruising and what appears to be a few small islands of scabbed over excoriation due to her large body habitus and pressure onto her other thigh and currently rectal tubing. The excoriated area appears superficial, is covered in thin eschar. Patient also points out a wound on her sacrum. There is a roughly 3 cm wound on the sacrum. Surrounding red bruising from pressure. Contains soft appearing yellow with white slough across the wound bed. Results & Data Vital Signs (Past 12 Hours) Vital Signs Temp Pulse Pulse Resp BP Pulse Ox O2 Del Method 12/08/23 10:44 Room Air 12/08/23 08:00 37.0 C 71 18 134/74 97 Room Air 12/08/23 07:35 76 12/08/23 00:31 37.1 C 79 17 176/75 H 100 Room Air 12/08/23 00:05 Room Air PG Care Time/CCT Total # of Minutes Spent Total Time Spent with Patient: Total time spent is greater than 50% in coordination of care (as documented) at patient's floor/unit and/or counseling patient: Coding Level of Care Code 08057 SUB INP/OBS CARE Diagnoses History of osteomyelitis Z87.39 Pressure ulcer L89.90 Pressure injury location: sacral region Morbid obesity with BMI of 60.0-69.9, adult E66.01; Z68.44 Unspecified open wound, right thigh, initial encounter S71.101A (2) Pressure ulcer Pressure injury location: sacral region
[2023-12-08] MEDS: COLLAGENASE OINT 30 GM TUBE EXT SCH (11:58)
[2023-12-08 12:26] LABS: Hematocrit (blood only) 23.7 % (37.0-47.0); Hemoglobin 7.6 g/dl (12.0-16.0); Mean Corpuscular Hgb Conc 32.1 g/dL (32.0-36.0); Mean Corpuscular Volume 84.3 fL (80.0-100.0); Mean Platelet Volume 10.2 fL (9.4-12.4); Platelet Count 476 K/uL (130-400); RDW Coefficient of Variation 14.9 % (11.5-14.5); RDW Standard Deviation 46.3 fL (36.4-46.3); Red Blood Count 2.81 M/uL (4.20-5.40); White Blood Count 12.27 K/ul (4.8-10.8)
[2023-12-08 12:45] LABS: Calcium 8.6 mg/dl (8.6-10.3); Potassium 3.7 mmol/L (3.5-5.1)
[2023-12-08 12:51] LABS: BUN Creatinine Ratio 31.8 (10-20); Creatinine Clr Calc Pharmacy 27.4 ml/min; Est GFR (African American) 24.6 ml/min; Est GFR (Non-African American) 21.2 ml/min
--- NOTE | 2023-12-08 16:07 | Billing Data ---
Date of Service December 08, 2023 Coding Level of Care Code 72539 SUB INP/OBS CARE
--- NOTE | 2023-12-08 16:08 | Billing Data ---
Date of Service December 08, 2023 Coding Level of Care Code 93548 SUB INP/OBS CARE
[2023-12-08] MEDS: CYCLOBENZAPRINE HCL 5 MG TAB PO PRN (16:09)
--- NOTE | 2023-12-08 17:35 | Magnetic Resonance Report ---
MRI OF THE LUMBAR SPINE WITHOUT IV CONTRAST CLINICAL HISTORY: Erosive endplate change at L4. COMPARISON STUDY: Abdominal CT dated 12/07/2023. Lumbar spine CT dated 07/27/2023. TECHNIQUE: MRI of the lumbar spine was performed utilizing various T1 and T2-weighted sequences in th e axial and sagittal planes. IV contrast was not administered for this examination. The examination i s degraded by motion artifact. FINDINGS: Lumbar spine: Vertebral body height and alignment are maintained throughout the lumbar spine. Tiny an terior osteophytes are seen throughout. The transverse and spinous processes appear intact. There is linear T1 signal hypointensity and marrow edema seen involving the anterior/inferior endplate of L4. This corresponds to the abnormality seen on yesterday's abdominal CT. This is new from the 07/27/[address] There is no abnormality in the adjacent disc and no surrounding soft tissue edema. T here is superior endplate edema in the body of L5 which is typically degenerative. Degenerative endpl ate edema is also seen at L5-S1. Intervertebral discs: There is mild disc desiccation. The disc spaces are preserved. No fluid is seen within the disc spaces. Spinal cord: The imaged spinal cord is normal in morphology and signal intensity. The conus medullari s terminates at the L1-L2 interspace. The nerve roots of the cauda equina are normal in morphology. L1-L2: Unremarkable. L2-L3: Unremarkable. L3-L4: Unremarkable. L4-L5: The central canal is clear. A left lateral disc bulge contributes to subarticular stenosis. Mi ld facet arthropathy is of no consequence. The neural foramina are patent. L5-S1: There is a small posterior disc bulge. The central canal is clear. Lateral disc bulge contribu desiree to mild bilateral subarticular stenosis. This may abut the exiting left L5 nerve root. In conjunc tion with facet arthropathy, there is [id number] left neural foraminal stenosis. The right neur al foramen is patent. Sacrum: The imaged sacrum is normal in morphology and signal intensity. Soft tissues: There is mild fatty atrophy of the paraspinous musculature. An 11 mm left renal cyst is incidentally noted. The retroperitoneal structures are otherwise grossly unremarkable but incomplete ly evaluated. IMPRESSION: 1. There is marrow edema and apparent erosion involving the anterior/inferior endplate of L4 as above . This is new from the 07/27/2023 CT scan, and there is also typically degenerative endplate edema in the superior endplate of L5. There is no abnormality within the L4-L5 disc space and no associated pa ravertebral edema. This likely represents progressive degenerative change. An impaction type fracture is considered less likely but could potentially have the same appearance. There is no convincing MRI evidence of discitis/osteomyelitis. Clinical correlation will be essential. 2. Degenerative endplate edema is also seen at L5-S1. 3. No destructive bony process is seen. 4. Mild spondylotic change as above. See discussion for detailed level by level analysis. Dictated: 12/08/2023 1:55 PM Transcribed: 12/08/2023 2:17 PM Mariana [id number] ADAM_Alex [id number] Electronically signed by: Chilango Vora M.D. 12/08/2023 5:34 PM
--- NOTE | 2023-12-08 17:36 | Magnetic Resonance Report ---
MRI OF THE RIGHT FEMUR WITHOUT IV CONTRAST CLINICAL HISTORY: Clinical concern for abscess. COMPARISON STUDY: Pelvic CT dated 12/07/2023. Radiographs of the right hip dated 04/10/2023. TECHNIQUE: MRI of the right femur was initiated. Coronal T1 and STIR sequences and a sagittal T1 sequ ence were obtained. The patient declined any further imaging and the examination is incomplete. FINDINGS: Normal marrow signal intensity is preserved throughout the right femur. The hip and knee aggie ints are grossly maintained. No destructive bony lesion is seen involving the right femur. There is s oft tissue edema identified in the thigh. No organized fluid collection is seen to suggest abscess on the acquired sequences. Prominent inguinal lymph nodes are likely reactive. There is generalized atr ophy of the regional musculature. IMPRESSION: 1. The patient declined to finish the examination. Only 3 sequences were obtained as above. 2. No bony abnormality is seen involving the right femur on the acquired images. 3. Subcutaneous soft tissue edema is noted in the thigh without evidence of organized fluid collectio n. Dictated: 12/08/2023 1:45 PM Transcribed: 12/08/2023 1:54 PM Richie [id number] ADAM_[email or web address] Electronically signed by: Chilango Vora M.D. 12/08/2023 5:35 PM
[2023-12-09 07:17] LABS: Basophils # (auto) 0.07 K/uL (0.00-0.20); Basophils % (auto) 0.6 %; Eosinophils # (auto) 0.16 K/uL (0.00-0.50); Eosinophils % (auto) 1.3 %; Hematocrit (blood only) 21.8 % (37.0-47.0); Hemoglobin 7.2 g/dl (12.0-16.0); Immature Granulocytes # (auto) 0.21 K/uL (0.01-0.20); Immature Granulocytes % (auto) 1.7 %; Lymphocytes # (auto) 1.61 K/uL (1.20-3.40); Lymphocytes % (auto) 13.1 %; Mean Corpuscular Hemoglobin 27.4 pg (25.0-34.0); Mean Corpuscular Volume 82.9 fL (80.0-100.0); Mean Platelet Volume 10.1 fL (9.4-12.4); Monocytes # (auto) 0.97 K/uL (0.11-0.59); Monocytes % (auto) 7.9 %; Neutrophils % (auto) 75.4 %; Platelet Count 458 K/uL (130-400); RDW Coefficient of Variation 14.9 % (11.5-14.5); RDW Standard Deviation 45.1 fL (36.4-46.3); Red Blood Count 2.63 M/uL (4.20-5.40); White Blood Count 12.32 K/ul (4.8-10.8)
[2023-12-09 07:45] LABS: BUN Creatinine Ratio 31.5 (10-20); Calcium 8.6 mg/dl (8.6-10.3); Creatinine Clr Calc Pharmacy 30.3 ml/min; Est GFR (African American) 27.4 ml/min; Est GFR (Non-African American) 23.6 ml/min; Potassium 3.4 mmol/L (3.5-5.1)
[2023-12-09 08:18] LABS: RBC Morphology Unremarkable
--- NOTE | 2023-12-09 10:14 | Hospitalist Progress Note ---
Date of Service December 09, 2023 Assessment & Plan (1) Cellulitis: (2) Acute kidney injury superimposed on chronic kidney disease: (3) Uncontrolled diabetes mellitus with hyperglycemia, with long-term current use of insulin: (4) C. difficile colitis: (5) Pressure ulcer: (6) Diabetic ulcer of right heel: (7) Anemia: (8) (HFpEF) heart failure with preserved ejection fraction: (9) History of osteomyelitis: (10) UTI (urinary tract infection): Plan # [facility]: [facility] Right medial thigh is erythematous with significant induration and eschar MRI right femur without contrast negative for gas or fluid collection MRSA swab: negative Ancef 2g q12h Acetaminophen, oxycodone and Dilaudid as needed for pain General surgery consulted for potential debridement - no intervention indicated # Acute kidney injury superimposed on chronic kidney disease: Avoid nephrotoxic agents Hold lisinopril IVF with LR at 125mL/hr x 2 L Trend BMP # Uncontrolled diabetes mellitus with hyperglycemia, with long-term current use of insulin: Last A1c at 7.9% on 05/04/2023 Glucose 191 on admission Patient normally on Lantus 10u QAM Will dose reduce to Lantus 5u QAM in the setting of PERLITA SSI; with target BSG range 110-140mg/dL, CF 25, carb ratio 10 T2DM diet BSG ACHS Adjust regimen as needed # C. difficile colitis: Contact isolation precautions Vancomycin p.o. QID # UTI (urinary tract infection): resolved # Pressure ulcer: Wound care nurse consult appreciated Daily wound care # Diabetic ulcer of right heel: Wound culture on 07/28/2023 grew Pseudomonas Wound culture on 01/04/2023 grew MSSA susceptible to daptomycin Daily wound care # Anemia: Chronic disease Hgb 9.3 on arrival, now in the 7s Type and Cross 2 units, transfuse below 7 Trend CBC # (HFpEF) heart failure with preserved ejection fraction: Last echocardiogram on 03/19/2023 revealed LVH of 65-70% Daily weights Strict I&O monitoring Hold Bumex in the setting of PERLITA # History of osteomyelitis: A/P CT revealed erosive changes of L4 Will obtain lumbar spine MRI without contrast to assess for discitis/osteomyelitis Uric acid level ordered to assess for gout Plan Disposition: Admit to U telemetry DNR/DNI Heart healthy, T2DM diet VTE PPx: Heparin 5000u SQ q12h Admission and Anticipated Discharge Date Admission Date: December 07, 2023 Supervising Physician Co-Signing Physician Notes I personally examined the patient and verified all parson points of history and exam, discussed case, and agree with decision making with Dr Pickens thigh pain @ wound improving, having some leg cramps when i enter. Vitals noted, in general she is awake and alert no significant distress although mildly uncomfortable with thigh cramp. Breathing unlabored no accessory muscle use good effort. Right medial thigh with large area of bruising a little bit of erythema some open ulcerations and sloughing - but less than yesterday. hamstrings tight c/w cramp - tried to help gently stretch Right lower extremity cellulitisMRSA nares neg, no severe sepsis/septic shock - very unlikely to need gm neg or anaerobe coverage (cefepime/flagyl dc'd yesterday) and with MRSA nares negative doubt needs MRSA coverage (streamline to cefazolin allowing for easy transition to PO cephalexin) - continue to follow anemiaslightly lower than her baseline range, no signs of blood loss. Nothing consistent with hemolysis. Ferritin was 93 in April, B12 was 743 in Marchso doubt deficiencies, although certainly given her course as a patient over the last year, and iron deficiency certainly could be the case. Continue to follow, consider repeating iron levels depending on her clinical course. C. difficilecontinue vancomycin DVT prophylaxisheparin subcu dispo- doesn't want to return to [facility] Subjective Patient seen and evaluated at bedside this morning. No acute events overnight. Still with significant pain in L mid thigh 11/19. Otherwise, feeling reasonably i mproved. Review of Systems Review of Systems: reviewed, per HPI Physical Exam Physical Exam: Constitutional: ill-appearing, vomiting HEENT: NCAT, no conjunctival injection CV: pale but clinically well perfused Resp: no increased WOB GI: non distended MSK: no gross deformities appreciated Skin: bruising, sloughing, small open wounds medial mid left thigh Neuro: alert, oriented, no focal neurologic deficit appreciated Results & Data Results & Data Vital Signs (Past 12 Hours) Vital Signs Temp Pulse Pulse Resp BP Pulse Ox O2 Del Method 12/09/23 07:17 37.1 C 84 18 150/70 H 97 Room Air 12/09/23 04:00 37.0 C 88 16 170/76 H 96 Room Air 12/08/23 22:55 73 12/08/23 22:46 37.0 C 72 16 157/80 H 96 Room Air 12/08/23 22:43 Room Air Resident Activity Tracking Resident Involvement: Resident Care Provided Care Provided: Adult Hospital Medicine (5) Pressure ulcer Pressure injury location: sacral region (6) Diabetic ulcer of right heel Diabetes mellitus type: type 2 Non-pressure ulcer stage: with fat layer exposed Qualified Code(s): E11.621 - Type 2 diabetes mellitus with foot ulcer; L97.412 - Non-pressure chronic ulcer of right heel and midfoot with fat layer exposed (7) Anemia Anemia type: due to chronic kidney disease Chronic kidney disease stage: stage 4 (severe) Qualified Code(s): N18.4 - Chronic kidney disease, stage 4 (severe); D63.1 - Anemia in chronic kidney disease
--- NOTE | 2023-12-09 10:38 | Surgery Progress Note ---
Date of Service December 09, 2023 Assessment & Plan (1) Unspecified open wound, right thigh, subsequent encounter: (2) History of osteomyelitis: (3) Pressure ulcer: Plan: Patient deferred evaluation today Plan Morbidly obese and not readily mobile patient with UTI discovered at admission, small sacral ulcer and small islands of superficial open areas at the right medial thigh. An MRI of the right femur in addition to MRI lumbar spine have not identified evidence for osteomyelitis. The right femur MRI notes edematous changes at the right thigh without fluid collection. Leukocytosis has been stable. Continue with Santyl to both the sacral and thigh wounds at this time. Continue with IV antibiotics. Surgery will f/u tomorrow. Admission and Anticipated Discharge Date Admission Date: December 07, 2023 Subjective I have seen and examined this patient this a.m. Of note patient deferred examination of her sacral wound at this time. Physical Exam Constitutional: + morbidly obese; not ill appearing (Ribeiro s not appear toxic), + not healthy appearing, not in distress and not diaphoretic Respiratory: normal respiratory effort; no respiratory distress, no labored breathing and does not use accessory muscles Skin: The medial thigh islands of eschar has since been covered with a protective bandage barrier. The patient states Santyl has been applied. There is tenderness to palpation at this location and edema within the soft tissues. There are some bruising in the area due to pressure. She has an area of induration at the outer right thigh as well along with bruising. Results & Data Vital Signs (Past 12 Hours) Vital Signs Temp Pulse Pulse Resp BP Pulse Ox O2 Del Method 12/09/23 07:17 37.1 C 84 18 150/70 H 97 Room Air 12/09/23 04:00 37.0 C 88 16 170/76 H 96 Room Air 12/08/23 22:55 73 12/08/23 22:46 37.0 C 72 16 157/80 H 96 Room Air 12/08/23 22:43 Room Air PG Care Time/CCT Total # of Minutes Spent Total Time Spent with Patient: Total time spent is greater than 50% in coordination of care (as documented) at patient's floor/unit and/or counseling patient: Coding Level of Care Code 59057 SUB INP/OBS CARE 25MIN Diagnoses Unspecified open wound, right thigh, subsequent encounter S71.101D History of osteomyelitis Z87.39 Pressure ulcer L89.90 Pressure injury location: sacral region (3) Pressure ulcer Pressure injury location: sacral region
[2023-12-09] MEDS: ACETAMINOPHEN 325 MG TAB PO PRN (10:42)
[2023-12-09] MEDS: AMITRIPTYLINE HCL 25 MG TAB PO ONE (12:49)
[2023-12-09] MEDS: oxyCODONE HCL IR 5 MG TAB (IMMEDIATE RELEASE) PO PRN (14:09)
[2023-12-09] MEDS: ceFAZolin 2000MG 2,000 MG/15 ML SYR IV SCH (15:42)
[2023-12-09] MEDS: FAMOTIDINE 20MG IV PUSH 20 MG/5 ML SYR IV STA (15:42)
--- NOTE | 2023-12-09 15:42 | Billing Data ---
Date of Service December 09, 2023 Coding Level of Care Code 48909 SUB INP/OBS CARE MIN
[2023-12-09] MEDS ORDERED: DAPTOmycin 300 MG in SYRINGE 0 ML IV SCH (19:00)
[2023-12-10] MEDS: diphenhydrAMINE 50 MG/ML VIAL IV STA (06:34)
[2023-12-10] MEDS: ADVANCED PROBIOTIC 625 MG CAPSULE PO SCH (08:14)
[2023-12-10] MEDS: AMITRIPTYLINE HCL 100 MG TAB PO SCH (08:14)
[2023-12-10 09:21] LABS: Basophils # (auto) 0.08 K/uL (0.00-0.20); Basophils % (auto) 0.6 %; Eosinophils # (auto) 0.27 K/uL (0.00-0.50); Eosinophils % (auto) 2.1 %; Hematocrit (blood only) 24.7 % (37.0-47.0); Hemoglobin 7.9 g/dl (12.0-16.0); Immature Granulocytes # (auto) 0.31 K/uL (0.01-0.20); Immature Granulocytes % (auto) 2.4 %; Lymphocytes # (auto) 2.03 K/uL (1.20-3.40); Lymphocytes % (auto) 15.5 %; Mean Corpuscular Volume 84.3 fL (80.0-100.0); Mean Platelet Volume 9.9 fL (9.4-12.4); Monocytes # (auto) 0.73 K/uL (0.11-0.59); Monocytes % (auto) 5.6 %; Neutrophils # (auto) 9.65 K/uL (1.40-6.50); Neutrophils % (auto) 73.8 %; Platelet Count 479 K/uL (130-400); RDW Coefficient of Variation 15.1 % (11.5-14.5); RDW Standard Deviation 46.5 fL (36.4-46.3); Red Blood Count 2.93 M/uL (4.20-5.40); White Blood Count 13.07 K/ul (4.8-10.8)
[2023-12-10 09:38] LABS: BUN Creatinine Ratio 28.8 (10-20); Calcium 8.9 mg/dl (8.6-10.3); Creatinine Clr Calc Pharmacy 29.9 ml/min; Est GFR (African American) 26.9 ml/min; Est GFR (Non-African American) 23.2 ml/min; Iron 24 mcg/dl (35-150); Potassium 3.3 mmol/L (3.5-5.1); Total Iron Binding Cap Calc 101 mcg/dl (250-450); Transferrin (FE) Percent Satur 24 % (15-50); Unsaturated Iron Binding Cap 77 mcg/dl (155-355)
[2023-12-10 09:41] LABS: Polychromasia 1+; Rouleaux 1+
--- NOTE | 2023-12-10 10:19 | Surgery Progress Note ---
Date of Service December 10, 2023 Assessment & Plan (1) Unspecified open wound, right thigh, subsequent encounter: (2) History of osteomyelitis: (3) Pressure ulcer: Plan: Patient deferred evaluation today Plan Morbidly obese and not readily mobile patient with UTI discovered at admission, small sacral ulcer and small islands of superficial open areas at the right medial thigh. An MRI of the right femur in addition to MRI lumbar spine have not identified evidence for osteomyelitis. The right femur MRI notes edematous changes at the right thigh without fluid collection. Leukocytosis slighlty increased to 13 from 12.3 yesterday. Afebrile and HD stable. The patient is not wanting too much evaluation/discussion regarding any invasive debridement and prefers to have wound care evaluate the two areas. I suggested a dedicated US to the right inner thigh area yesterday and today. She is not interested in that either and is concerned about pain. 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 Continue with Santyl to both the sacral and thigh wounds at this time and recommend wound care consultation as the patient has requested. Patient deferred for me to see her sacral wound, if wound care is able to access this for evaluation, consider culture if there is culturable material. Continue with IV antibiotics per medicine. Admission and Anticipated Discharge Date Admission Date: December 07, 2023 Subjective I have seen and examined this patient this am. She does not offer up any major complaints. States she is eating pretty well. Physical Exam Constitutional: not ill appearing, + not healthy appearing, not in distress and not diaphoretic Respiratory: normal respiratory effort; no respiratory distress, no labored breathing and does not use accessory muscles Skin: necrosis of skin at the inner thigh. Some surrounding bruising. Induration. TTP at the posterior aspect of the area. Santyl has not yet been applied today. The Mepilex bandage partially off and stuck to the weakened skin around the area of eschar. Patient again deferred sacral wound evaluation this am. Results & Data Vital Signs (Past 12 Hours) Vital Signs Temp Pulse Pulse Resp BP Pulse Ox O2 Del Method 12/10/23 09:24 Room Air 12/10/23 07:59 37.0 C 83 18 136/72 97 Room Air 12/10/23 07:31 86 12/10/23 02:51 36.9 C 78 18 122/70 94 Room Air 12/09/23 23:33 80 12/09/23 23:03 37.0 C 75 19 124/74 95 Room Air 12/09/23 23:01 Room Air Laboratory Results WBC elevated to 13 from 12.3 Results Complete Blood Count Results: RBC 2.93 M/uL (4.20-5.40) L 12/10/23 WBC 13.07 K/ul (4.8-10.8) H 12/10/23 Hgb 7.9 g/dl (12.0-16.0) L 12/10/23 Hct 24.7 % (37.0-47.0) L 12/10/23 Plt Count 479 K/uL (130-400) H 12/10/23 PG Care Time/CCT Total # of Minutes Spent Total Time Spent with Patient: Total time spent is greater than 50% in coordination of care (as documented) at patient's floor/unit and/or counseling patient: Coding Level of Care Code 44612 SUB INP/OBS CARE 04/05MIN Diagnoses Unspecified open wound, right thigh, subsequent encounter S71.101D History of osteomyelitis Z87.39 Pressure ulcer L89.90 Pressure injury location: sacral region (3) Pressure ulcer Pressure injury location: sacral region
--- NOTE | 2023-12-10 10:36 | Hospitalist Progress Note ---
Date of Service December 10, 2023 Assessment & Plan (1) Cellulitis: (2) Acute kidney injury superimposed on chronic kidney disease: (3) Uncontrolled diabetes mellitus with hyperglycemia, with long-term current use of insulin: (4) C. difficile colitis: (5) Pressure ulcer: (6) Diabetic ulcer of right heel: (7) Anemia: (8) (HFpEF) heart failure with preserved ejection fraction: (9) History of osteomyelitis: (10) UTI (urinary tract infection): Plan # Cellulitis: Patient presented from [facility] for right medial thigh pain on 12/06 Right medial thigh is erythematous with significant induration and eschar MRI right femur without contrast negative for gas or fluid collection, but was not completed due to patient not wanting to continue MRSA swab: negative Ancef 2g q12h started yesterday WBC with slight increase from 12.3 to ~13 today, but with increase in all cell lines could be hemoconcentration. Encouraged PO hydration. Acetaminophen, oxycodone and Dilaudid as needed for pain General surgery consulted for potential debridement - recc US of right thigh to evaluate versus non-con CT from pelvis to upper LE, but patient deferred. No intervention at this time. # Acute kidney injury superimposed on chronic kidney disease: Baseline Cr ~ 1.9. AM labs w/ Cr at 2.19 Avoid nephrotoxic agents Hold lisinopril No IVF at the time. Little PO hydration. Encouraged increase oral hydration, but may consider gentle IVF given hx of HFpEF if not successful. Trend BMP # Uncontrolled diabetes mellitus with hyperglycemia, with long-term current use of insulin: Last A1c at 7.2% on 12/08/2023 (given chronic illnesses and age, this value is within goal of 7.5-8%) Patient normally on Lantus 10u QAM Will dose reduce to Lantus 5u QAM in the setting of PERLITA SSI No hypoglycemic episodes reported # C. difficile colitis: Contact isolation precautions Vancomycin p.o. QID Seems to be improved as patient has no episodes of diarrhea since rectal tube was removed Given negative C.diff gene from 12/08/23, will stop Vancomycin PO # UTI (urinary tract infection): resolved # Pressure ulcer: Wound care nurse following Daily wound care # Diabetic ulcer of right heel: Wound culture on 07/28/2023 grew Pseudomonas Wound culture on 01/04/2023 grew MSSA susceptible to daptomycin Daily wound care # Anemia: Chronic disease Hgb 9.3 on arrival, now in the 7s Asymptomatic, however, unsure given patient has weakness for a while and has not stood up due to this. BP stable and HR NSR Type and Cross 2 units, transfuse below 7 Trend CBC # (HFpEF) heart failure with preserved ejection fraction: Last echocardiogram on 03/19/2023 revealed LVH of 65-70% Daily weights Strict I&O monitoring Hold Bumex in the setting of PERLITA # History of osteomyelitis: A/P CT revealed erosive changes of L4 L-spine MRI w/ erosion in L4 and L5 which could be consistent with degenerative changes and no obvious OM found Plan Disposition: Discharge back to [facility] versus other rehab center 2/2 weakness DNR/DNI Heart healthy, T2DM diet VTE PPx: Heparin 5000u SQ q12h Admission and Anticipated Discharge Date Admission Date: December 07, 2023 Supervising Physician Co-Signing Physician Notes Attending attestation Pt seen and examined in concert with Dr. Hunter. In agreement with the documented findings as noted in the resident documentation with any exceptions or additions as noted here. Thigh pain well controlled on present regimen. On examination, S1/S2 nl RRR no MCG. CTAB. Abd NT/ND BS+ve RLE cellulitis - follow up culture and continue empiric coverage, agree w/ US thigh Else see resident documentation as noted. Subjective Patient was evaluated at bedside and found to be AAOx3 and in NAD. Does refer having some pain in her right thigh around the area of her wound, which she states is similar in appearance as yesterday. Has not been able to ambulate due to weakness and pain. Is tearful and states she does not want to go back to [facility] due to bad experiences there. Denies fevers, chills, chest pain, SOB, or any other sxs. Review of Systems Review of Systems: reviewed, per HPI Physical Exam Physical Exam: Constitutional: AAOx3, comfortable, tearful, NAD HEENT: NCAT, no conjunctival injection CV: pale but clinically well perfused Resp: CTA, normal respiratory effort, breathing at room air GI: non distended MSK: no gross deformities appreciated Skin: medial right thigh with induration, tenderness to palpation, some erythema, superficial wounds that are non-bleeding and w/o exudates, eschar/necrosis around said wounds, b/l feet covered with bandages and with waffle boots on Neuro: alert, oriented, no focal neurologic deficit appreciated Results & Data Results & Data Vital Signs (Past 12 Hours) Vital Signs Temp Pulse Pulse Resp BP Pulse Ox O2 Del Method 12/10/23 09:24 Room Air 12/10/23 07:59 37.0 C 83 18 136/72 97 Room Air 12/10/23 07:31 86 12/10/23 02:51 36.9 C 78 18 122/70 94 Room Air 12/09/23 23:33 80 12/09/23 23:03 37.0 C 75 19 124/74 95 Room Air 12/09/23 23:01 Room Air Resident Activity Tracking Resident Involvement: Resident Care Provided Care Provided: Adult Hospital Medicine (5) Pressure ulcer Pressure injury location: sacral region (6) Diabetic ulcer of right heel Diabetes mellitus type: type 2 Non-pressure ulcer stage: with fat layer exposed Qualified Code(s): E11.621 - Type 2 diabetes mellitus with foot ulcer; L97.412 - Non-pressure chronic ulcer of right heel and midfoot with fat layer exposed (7) Anemia Anemia type: due to chronic kidney disease Chronic kidney disease stage: stage 4 (severe) Qualified Code(s): N18.4 - Chronic kidney disease, stage 4 (severe); D63.1 - Anemia in chronic kidney disease
[2023-12-11] MEDS: ONDANSETRON INJ 2 MG/ML 2 ML VIAL IV PRN (08:34)
[2023-12-11 08:39] LABS: Basophils # (auto) 0.07 K/uL (0.00-0.20); Basophils % (auto) 0.6 %; Eosinophils # (auto) 0.24 K/uL (0.00-0.50); Hemoglobin 7.8 g/dl (12.0-16.0); Immature Granulocytes % (auto) 2.5 %; Lymphocytes # (auto) 2.14 K/uL (1.20-3.40); Lymphocytes % (auto) 17.5 %; Mean Corpuscular Hemoglobin 26.7 pg (25.0-34.0); Mean Corpuscular Hgb Conc 32.5 g/dL (32.0-36.0); Mean Corpuscular Volume 82.2 fL (80.0-100.0); Mean Platelet Volume 9.9 fL (9.4-12.4); Monocytes # (auto) 0.89 K/uL (0.11-0.59); Monocytes % (auto) 7.3 %; Neutrophils % (auto) 70.1 %; Platelet Count 480 K/uL (130-400); Red Blood Count 2.92 M/uL (4.20-5.40); White Blood Count 12.24 K/ul (4.8-10.8)
[2023-12-11 08:57] LABS: BUN Creatinine Ratio 28.2 (10-20); Calcium 8.9 mg/dl (8.6-10.3); Creatinine Clr Calc Pharmacy 31.8 ml/min; Potassium 3.4 mmol/L (3.5-5.1)
--- NOTE | 2023-12-11 09:05 | Hospitalist Progress Note ---
Date of Service December 11, 2023 Assessment & Plan (1) Cellulitis: (2) Acute kidney injury superimposed on chronic kidney disease: (3) Uncontrolled diabetes mellitus with hyperglycemia, with long-term current use of insulin: (4) C. difficile colitis: (5) Pressure ulcer: (6) Diabetic ulcer of right heel: (7) Anemia: (8) (HFpEF) heart failure with preserved ejection fraction: (9) History of osteomyelitis: (10) UTI (urinary tract infection): Plan # Cellulitis: Patient presented from [facility] rehab for right medial thigh pain on 12/06 Right medial thigh is erythematous with significant induration and eschar MRI right femur without contrast negative for gas or fluid collection, but was not completed due to patient not wanting to continue MRSA swab: negative Ancef 2g q12h WBC with slight decrease to 12.24 fro ~13 yesterday; no fevers Acetaminophen, oxycodone and Dilaudid as needed for pain General surgery consulted for potential debridement - recc US of right thigh to evaluate versus non-con CT from pelvis to upper LE, but patient deferred. No intervention at this time. # (R) Thigh pain - Patient with pain in her right thigh over where her wound/cellulitis is - Believe pain is due to synergistic effect of current infection, lack of mobility, and possible cramps - PT following and believe that they can help her given this lack of movement and weakness - Will continue with PT until CM able to find inpatient rehab center. # Acute kidney injury superimposed on chronic kidney disease: Baseline Cr ~ 1.9. AM labs w/ Cr at 2.06 after increase in PO hydration Avoid nephrotoxic agents Hold lisinopril Trend BMP # Anemia: Chronic disease Hgb 9.3 on arrival, now in > 7.5 Asymptomatic, however, unsure given patient has weakness for a while and has not stood up due to this. BP stable and HR NSR Type and Cross 2 units, transfuse below 7 Trend CBC # Diabetes mellitus with hyperglycemia, with long-term current use of insulin: Last A1c at 7.2% on 12/08/2023 (given chronic illnesses and age, this value is within goal of 7.5-8%) Continue Lantus and SSI No hypoglycemic episodes reported # C. difficile colitis: Contact isolation precautions Vancomycin p.o. QID No recurrence of diarrhea or abdominal pain Complete Vancomycin course # UTI (urinary tract infection): resolved # Pressure ulcer: Wound care nurse following Daily wound care # Diabetic ulcer of right heel: Wound culture on 07/28/2023 grew Pseudomonas Wound culture on 01/04/2023 grew MSSA susceptible to daptomycin Daily wound care # (HFpEF) heart failure with preserved ejection fraction: Last echocardiogram on 03/19/2023 revealed LVH of 65-70% Daily weights Strict I&O monitoring Hold Bumex in the setting of PERLITA # History of osteomyelitis: A/P CT revealed erosive changes of L4 L-spine MRI w/ erosion in L4 and L5 which could be consistent with degenerative changes and no obvious OM found Plan Disposition: Discharge to inpatient rehab. CM sent referrals for [facility] and other places. Pending availability. DNR/DNI Heart healthy, T2DM diet VTE PPx: Heparin 5000u SQ q12h Admission and Anticipated Discharge Date Admission Date: December 07, 2023 Supervising Physician Co-Signing Physician Notes Attending attestation Pt seen and examined in concert with Dr. Hunter. In agreement with the documented findings as noted in the resident documentation with any exceptions or additions as noted here. Ongoing though improved pain of the right thigh. No significant bowel movements reported by patient at time of examination, decreased from previous diarrhea with c. diff without abdominal complaint. On examination, S1/S2 nl RRR no MCG. CTAB. Abd NT/ND BS+ve. Right thigh dressing C/D/I without visible erythema or significant TTP reported. Right thigh cellulitis - tolerating Ancef with improvement without cultures pending. Continue pain management. General surgery consult appreciated. Patient willing to do US for collection, ordered today. C. difficile colitis - continue vancomycin at current course and complete taper on discharge. PERLITA on CKDIII - improved with oral hydration, trying to avoid bolus in the setting of HFpEF. Trend BMP daily. Abnormal urine culture without urinary symptoms - no symptoms reported by patient. Pruett catheter in place. Continue Ancef and monitor. Else see resident documentation as noted. Subjective Patient was evaluated at bedside and found to be AAOx3 and in NAD. Does refer having some pain in her right thigh around the area of her wound, which she states is similar in appearance as yesterday. Has not been able to ambulate due to weakness and pain. Did not wish to do PT yesterday, per RN. Still referring poor appetite. Denies fevers, chills, chest pain, SOB, or any other sxs. Review of Systems Review of Systems: reviewed, per HPI Physical Exam Physical Exam: Constitutional: AAOx3, comfortable, tearful, NAD HEENT: NCAT, no conjunctival injection CV: pale but clinically well perfused Resp: CTA, normal respiratory effort, breathing at room air GI: non distended MSK: no gross deformities appreciated Skin: medial right thigh with induration, tenderness to palpation, some e rythema, superficial wounds that are non-bleeding and w/o exudates, eschar/necrosis around said wounds, b/l feet covered with bandages and with waffle boots on Neuro: alert, oriented, no focal neurologic deficit appreciated Results & Data Results & Data Vital Signs (Past 12 Hours) Vital Signs Temp Pulse Pulse Resp BP Pulse Ox O2 Del Method 12/11/23 07:40 88 12/11/23 07:40 Room Air 12/11/23 07:25 36.9 C 82 16 152/76 H 97 Room Air 12/11/23 03:27 36.8 C 79 18 135/60 99 Room Air 12/10/23 22:40 37 C 87 18 151/68 H 98 Room Air 12/10/23 21:55 91 H Resident Activity Tracking Resident Involvement: Resident Care Provided Care Provided: Adult Hospital Medicine (5) Pressure ulcer Pressure injury location: sacral region (6) Diabetic ulcer of right heel Diabetes mellitus type: type 2 Non-pressure ulcer stage: with fat layer exposed Qualified Code(s): E11.621 - Type 2 diabetes mellitus with foot ulcer; L97.412 - Non-pressure chronic ulcer of right heel and midfoot with fat layer exposed (7) Anemia Anemia type: due to chronic kidney disease Chronic kidney disease stage: stage 4 (severe) Qualified Code(s): N18.4 - Chronic kidney disease, stage 4 (severe); D63.1 - Anemia in chronic kidney disease
[2023-12-11 09:11] LABS: Anisocytosis Present
--- NOTE | 2023-12-11 12:24 | Surgery Progress Note ---
Date of Service December 11, 2023 Assessment & Plan (1) Pressure ulcer: Plan: Pt here with multiple wounds wbc 12, on abx vanc and cefepime femur MRI showed subcutaneous soft tissue edema is noted in the thigh without evidence of organized fluid collection appears initially pt was resistant to evaluations and possible debridement, but now is more open to the idea since she is willing we will ask wound care to evaluate her wounds for their recommendations we will follow up in consideration if any of them require surgical debridement in the OR (2) Unspecified open wound, right thigh, initial encounter: Admission and Anticipated Discharge Date Admission Date: December 07, 2023 Supervising Physician Co-Signing Physician Notes Patient seen and examined, agree with above. Multiple medical problems with pressure wounds on her medial thigh. She did let us examine them partially today as they are less tender. Advised appear to be a thick eschar. We will have wound care examined the patient, if they feel debridement is necessary then potentially debride in the OR later this week. Subjective patient feeling okay. no obvious complaints, some discomfort with wounds. says foot one is improving Physical Exam Skin: appears to be some dark eschar of r medial thigh wound with ecchymosis, not fully evaluated with kerlex wrapping in place. did not evaluate sacral wound at this time Results & Data Vital Signs (Past 12 Hours) Vital Signs Temp Pulse Pulse Resp BP Pulse Ox O2 Del Method 12/11/23 11:23 98.4 F 77 16 139/75 100 Room Air 12/11/23 07:40 88 12/11/23 07:40 Room Air 12/11/23 07:25 98.4 F 82 16 152/76 H 97 Room Air 12/11/23 03:27 98.2 F 79 18 135/60 99 Room Air PG Care Time/CCT Total # of Minutes Spent Total Time Spent with Patient: Total time spent is greater than 50% in coordination of care (as documented) at patient's floor/unit and/or counseling patient: Coding Level of Care Code 06667 SUB INP/OBS CARE 04/05MIN Diagnoses Pressure ulcer L89.90 Pressure injury location: sacral region Unspecified open wound, right thigh, initial encounter S71.101A (1) Pressure ulcer Pressure injury location: sacral region
--- NOTE | 2023-12-11 14:53 | Ultrasound Report ---
US extremity non-vascular ltd HISTORY: 63 years-old Female right thigh wound c/f abscess acute pain and swelling of the right thig h COMPARISON: Duplex venous Doppler study 12/07/2023 TECHNIQUE: Multiple real-time sonographic images of the right thigh soft tissues were obtained assess ing grayscale appearance and color flow FINDINGS: Subcutaneous edema with increased echogenicity of the subcutaneous tissues. No fluid collections or m ass lesions. IMPRESSION: Subcutaneous edema without discrete fluid collection. Differential considerations include cellulitis, venous stasis or lymphedema. ACT 112: Negative or not required by law. The above report was generated using voice recognition software. It may contain grammatical, syntax o r spelling errors. Electronically signed by: Bryan Manrique M.D. 12/11/2023 2:52 PM
--- NOTE | 2023-12-11 16:53 | Communication Note ---
Date of Service: December 11, 2023 Asked wound care to re-evaluate patient's wounds since today the patient is amenable to further evaluation and treatment if indicated. Appreciate their re commendations who believe she likely will benefit from debridement. Wounds in consideration for debridement include a right medial thigh and sacral wound. I have tentatively placed the patient on the schedule for tomorrow. NPO at midnight. Will discuss with patient in the AM to ensure she is agreeable with surgical intervention.
[2023-12-12] MEDS ORDERED: ROCURONIUM BROMIDE 10 MG/ML 5 ML VIAL IV ONE ×5 (07:26)
[2023-12-12] MEDS ORDERED: fentaNYL citrate PF 100 MCG/2 ML VIAL ONE (07:26)
[2023-12-12] MEDS ORDERED: DEXAMETHASONE SOD INJ 4 MG/ML VIAL ONE (07:26)
[2023-12-12] MEDS ORDERED: PROPOFOL IV EMULSION 10 MG/ML 20 ML VIAL IV ONE (07:26)
[2023-12-12] MEDS ORDERED: MIDAZOLAM HCL 1 MG/ML 2ML VIAL ONE (07:26)
[2023-12-12] MEDS ORDERED: LIDOCAINE 2% 2 ML VIAL/AMP(20MG/ML) INFIL ONE ×2 (07:26)
[2023-12-12] MEDS ORDERED: ONDANSETRON INJ 2 MG/ML 2 ML VIAL ONE (07:26)
[2023-12-12 08:06] LABS: Basophils # (auto) 0.05 K/uL (0.00-0.20); Basophils % (auto) 0.4 %; Eosinophils # (auto) 0.21 K/uL (0.00-0.50); Eosinophils % (auto) 1.6 %; Hematocrit (blood only) 22.7 % (37.0-47.0); Hemoglobin 7.4 g/dl (12.0-16.0); Immature Granulocytes # (auto) 0.46 K/uL (0.01-0.20); Immature Granulocytes % (auto) 3.5 %; Lymphocytes # (auto) 1.82 K/uL (1.20-3.40); Mean Corpuscular Hgb Conc 32.6 g/dL (32.0-36.0); Mean Corpuscular Volume 82.8 fL (80.0-100.0); Monocytes # (auto) 1.03 K/uL (0.11-0.59); Monocytes % (auto) 7.9 %; Neutrophils # (auto) 9.39 K/uL (1.40-6.50); Neutrophils % (auto) 72.6 %; Platelet Count 468 K/uL (130-400); RDW Coefficient of Variation 15.4 % (11.5-14.5); RDW Standard Deviation 46.3 fL (36.4-46.3); Red Blood Count 2.74 M/uL (4.20-5.40); White Blood Count 12.96 K/ul (4.8-10.8)
[2023-12-12 08:22] LABS: BUN Creatinine Ratio 25.5 (10-20); Calcium 8.7 mg/dl (8.6-10.3); Creatinine Clr Calc Pharmacy 28.4 ml/min; Est GFR (African American) 25.2 ml/min; Est GFR (Non-African American) 21.8 ml/min; Potassium 3.4 mmol/L (3.5-5.1)
[2023-12-12 08:30] LABS: Polychromasia 1+; Spherocytes 1+
[2023-12-12] MEDS ORDERED: SODIUM CHLORIDE 0.9% 250 ML IV PRN (08:32)
[2023-12-12] MEDS: ONDANSETRON INJ 2 MG/ML 2 ML VIAL IV STA (09:48)
--- NOTE | 2023-12-12 09:52 | Surgery Progress Note ---
Date of Service December 12, 2023 Assessment & Plan (1) Unspecified open wound, right thigh, subsequent encounter: Plan: Right thigh pressure ulcer and sacral decubitus ulcer Plan for debridement of right thigh wound and sacral wound Risk discussed to include but not limited bleeding, infection, prolonged wound healing, need for future more extensive surgery, and the risk of anesthesia (2) Pressure ulcer: Admission and Anticipated Discharge Date Admission Date: December 07, 2023 Subjective Right medial thigh and sacral pressure ulcers. She is finally agreed to have this examined him as well as debride them. Wound care visited, agrees debridement is necessary for these 2 wounds. Physical Exam Constitutional: WD/WN, vitals as above + obese Skin: no rashes, warm and dry Right medial thigh with pressure ulcer with thickened eschar. Sacral decubitus ulcer with some fibrinous exudate. No infection Results & Data Vital Signs (Past 12 Hours) Vital Signs Temp Pulse Pulse Resp BP Pulse Ox O2 Del Method 12/12/23 07:42 36.7 C 63 20 149/62 H 96 Room Air 12/12/23 03:24 36.8 C 67 18 141/76 H 97 Room Air 12/11/23 23:00 76 12/11/23 22:41 37.0 C 65 18 145/79 H 97 Room Air PG Care Time/CCT Total # of Minutes Spent Total Time Spent with Patient: Total time spent is greater than 50% in coordination of care (as documented) at patient's floor/unit and/or counseling patient: Coding Level of Care Code 42171 SUB INP/OBS CARE 2/35MIN Diagnoses Unspecified open wound, right thigh, subsequent encounter S71.101D Pressure ulcer L89.90 Pressure injury location: sacral region (2) Pressure ulcer Pressure injury location: sacral region
[2023-12-12] MEDS: SODIUM CHLORIDE 0.9% 1,000 ML IV SCH (09:58)
--- NOTE | 2023-12-12 11:00 | Hospitalist Progress Note ---
Date of Service December 12, 2023 Assessment & Plan (1) Cellulitis: (2) Acute kidney injury superimposed on chronic kidney disease: (3) Uncontrolled diabetes mellitus with hyperglycemia, with long-term current use of insulin: (4) C. difficile colitis: (5) Pressure ulcer: (6) Diabetic ulcer of right heel: (7) Anemia: (8) (HFpEF) heart failure with preserved ejection fraction: (9) History of osteomyelitis: (10) UTI (urinary tract infection): Plan # Weakness/Ambulatory dysfunction - Patient from [facility] due to need for rehab established after last admission - PT ordered during current admission due to persistent weakness but patient has not been able to participate due to pain in right thigh and weakness - CM following for coordination of discharge to rehab facility. Patient preferring not to return to [facility] - Referrals sent # Cellulitis: - Right medial thigh is erythematous with significant induration and eschar - MRI incomplete but no abscess or OM in right thigh - MRSA swab: negative Ancef 1g q12h (renally adjusted) WBC stable ~12; no fevers - Acetaminophen, oxycodone and Dilaudid as needed for pain - Debridement to be done today. # Anemia: - Chronic disease - Hgb 9.3 on arrival, now in 7.4 - Asymptomatic, however, unsure given patient has weakness for a while and has not stood up due to this. - BP stable and HR NSR - Will transfuse 1 unit of PRBC prior to debridement today. F/u with post- transfusion H&H - Trend CBC # (R) Thigh pain - Patient with pain in her right thigh over where her wound/cellulitis is - Believe pain is due to synergistic effect of current infection, lack of mobility, and possible cramps - PT following and believe that they can help her given this lack of movement and weakness, but patient has not participated - Will continue with PT until CM able to find inpatient rehab center. # Acute kidney injury superimposed on chronic kidney disease: Baseline Cr ~ 1.9. AM labs w/ Cr at 2.31. Continue PO hydration Avoid nephrotoxic agents Hold lisinopril Trend BMP # Diabetes mellitus with hyperglycemia, with long-term current use of insulin: Last A1c at 7.2% on 12/08/2023 (given chronic illnesses and age, this value is within goal of 7.5-8%) Continue Lantus and SSI No hypoglycemic episodes reported # C. difficile colitis: Contact isolation precautions Vancomycin p.o. QID No recurrence of diarrhea or abdominal pain Complete Vancomycin course # Pressure ulcer: Wound care nurse following Daily wound care # Diabetic ulcer of right heel: Wound culture on 07/28/2023 grew Pseudomonas Wound culture on 01/04/2023 grew MSSA susceptible to daptomycin Daily wound care # (HFpEF) heart failure with preserved ejection fraction: Last echocardiogram on 03/19/2023 revealed LVH of 65-70% Daily weights Strict I&O monitoring Hold Bumex in the setting of PERLITA # History of osteomyelitis: A/P CT revealed erosive changes of L4 L-spine MRI w/ erosion in L4 and L5 which could be consistent with degenerative changes and no obvious OM found Plan Disposition: Discharge to inpatient rehab. CM sent referrals for [facility] and other places. Pending availability. DNR/DNI Heart healthy, T2DM diet VTE PPx: Heparin 5000u SQ q12h Admission and Anticipated Discharge Date Admission Date: December 07, 2023 Supervising Physician Co-Signing Physician Notes Attending attestation Pt seen and examined in concert with Dr. Hunter. In agreement with the documented findings as noted in the resident documentation with any exceptions or additions as noted here. Sedated following debridement with pain well controlled, limited history at time of examination. On examination, S1/S2 nl RRR no MCG. CTAB. Abd NT/ND BS+ve. Right thigh cellulitis - continue Ancef, will taper tomorrow following outcomes re: debridement. Continue pain management. General surgery consult appreciated. C. difficile colitis - continue PO vancomycin at current course and complete taper on discharge. PERLITA on CKDIII - improved with oral hydration, currently stable. trying to avoid bolus in the setting of HFpEF. Trend BMP daily. Abnormal urine culture without urinary symptoms - no symptoms reported by patient. Pruett catheter in place. Continue Ancef and monitor. Else see resident documentation as noted. Subjective Patient evaluated at bedside and found to be AAOx3, afebrile, and in NAD. She refers feeling comfortable and states her pain is improved compared to yesterday. Has not ambulated or done PT. Has not had fevers, chills, weakness, N/V/D, or any other systemic sxs. Review of Systems Review of Systems: reviewed, per HPI Physical Exam Physical Exam: Constitutional: AAOx3, comfortable, tearful, NAD HEENT: NCAT, no conjunctival injection Resp: CTA, normal respiratory effort, breathing at room air GI: non distended MSK: no gross deformities appreciated Skin: wound on medial thigh covered with bandage that is c/d/i, b/l feet covered with bandages and with waffle boots on Neuro: alert, oriented, no focal neurologic deficit appreciated Results & Data Results & Data Vital Signs (Past 12 Hours) Vital Signs Temp Pulse Pulse Resp BP Pulse Ox O2 Del Method 12/12/23 09:50 36.7 C 94 H 20 167/77 H 94 Room Air 12/12/23 07:42 36.7 C 63 20 149/62 H 96 Room Air 12/12/23 03:24 36.8 C 67 18 141/76 H 97 Room Air 12/11/23 23:00 76 Resident Activity Tracking Resident Involvement: Resident Care Provided Care Provided: Adult Hospital Medicine (5) Pressure ulcer Pressure injury location: sacral region (6) Diabetic ulcer of right heel Diabetes mellitus type: type 2 Non-pressure ulcer stage: with fat layer exposed Qualified Code(s): E11.621 - Type 2 diabetes mellitus with foot ulcer; L97.412 - Non-pressure chronic ulcer of right heel and midfoot with fat layer exposed (7) Anemia Anemia type: due to chronic kidney disease Chronic kidney disease stage: stage 4 (severe) Qualified Code(s): N18.4 - Chronic kidney disease, stage 4 (severe); D63.1 - Anemia in chronic kidney disease
[2023-12-12] MEDS ORDERED: SUGAMMADEX SODIUM 200 MG/2 ML VIAL IV ONE (11:19)
[2023-12-12] MEDS ORDERED: ATROPINE SULFATE 0.1 MG/ML 10ML SYR IV PRN (11:26)
--- NOTE | 2023-12-12 11:34 | Anesthesiology Consultation ---
Date of Service December 12, 2023 Assessment & Plan Chart Review Chart Review: Acceptable Risk for Surgery ASA ASA4 Proposed Anesthesia Anesthesia Type: General Risk / Benefits Reviewed With: PT / POA / Parent / Guardian, Accepts Plan and Informed Consent Obtained History Surgery Operation Date: 12/12/23 07:00 Proposed Procedures p Debridement of Right Thigh Wound, Debridement of Sacral Wound - Isiah Fermin DO, FACS Height/Weight Height: 5 ft 2 in Weight: 105 kg Allergies Allergy/AdvReac Type Severity Reaction Status Date / Time amoxicillin Allergy Intermediate hives Verified 12/07/23 21:03 dextromethorphan Allergy Intermediate Hives Verified 12/07/23 21:03 [From NyQuil] doxylamine [From NyQuil] Allergy Intermediate Hives Verified 12/07/23 21:03 gluten Allergy Intermediate Hives Verified 12/07/23 21:03 latex Allergy Intermediate RASH Verified 12/07/23 21:03 Sulfa (Sulfonamide Allergy Intermediate RASH Verified 12/07/23 21:03 Antibiotics) clarithromycin AdvReac Intermediate HEART RACES Verified 12/07/23 21:03 Umesh's multigrain bread Allergy Intermediate Hives Uncoded 12/07/23 18:28 Medications Home Medications Medication Instructions Recorded Confirmed Last Taken fluticasone propionate 50 50 mcg intranasal QAM 03/10/19 12/07/23 07/27/23 mcg/actuation nasal spray,suspension (Flonase Allergy Relief) levothyroxine 175 mcg tablet 175 mcg PO QAM 03/10/19 12/07/23 07/27/23 (Synthroid) loratadine 10 mg tablet 5 mg PO DAILY PRN Allergy Symptoms 01/19/21 12/07/23 01/11/23 pen needle, diabetic 32 gauge x 06/20/21 05/03/23 Unknown " (BD Ultra-Fine Siria Pen Needle) blood sugar diagnostic (FreeStyle 06/29/21 05/03/23 Unknown Precision Perico Strips) flash glucose scanning reader 06/29/21 05/03/23 Unknown (FreeStyle Davy 14 Day [place]) flash glucose sensor (FreeStyle 06/29/21 05/03/23 Unknown Davy 14 Day Sensor kit) lancets 30 gauge (OneTouch Delica 06/29/21 05/03/23 Unknown Lancets) cholecalciferol (vitamin D3) 50 50 mcg PO QAM 02/09/22 12/07/23 07/27/23 mcg (2,000 unit) capsule (Vitamin D3) albuterol sulfate 90 mcg/actuation 2 puff inhalation QID PRN wheezing 03/19/23 12/07/23 Unknown aerosol inhaler (Proventil HFA) acetaminophen 325 mg tablet 650 mg (2 x 325 mg) PO Q4H PRN 04/12/23 12/07/23 07/27/23 pain #30 tabs insulin aspart U-100 100 unit/mL See Rx Instructions .Route .COMPLEX 04/13/23 12/09/23 12/07/23 subcutaneous solution (Novolog U-100 Insulin aspart) insulin detemir U-100 100 unit/mL 0 unit subcut BID 07/27/23 12/07/23 07/27/23 (3 mL) subcutaneous pen (Levemir FlexPen) simvastatin 40 mg tablet 40 mg PO HS 07/27/23 12/07/23 12/07/23 diclofenac sodium 1 % topical gel 2 g EXT QID #100 grams 08/13/23 12/07/23 Unknown (Voltaren Arthritis Pain) amitriptyline 100 mg tablet 0 mg PO HS Did Not Take/Spot [employer] Med 12/07/23 12/07/23 Unknown amitriptyline 25 mg tablet 25 mg PO DAILY 12/07/23 12/07/23 Unknown bumetanide 1 mg tablet 2 mg PO QAM 12/07/23 12/07/23 Unknown collagenase clostridium histo. 250 250 unit topical 2XD 12/07/23 12/07/23 Unknown unit/gram topical ointment (Santyl) cyanocobalamin (vitamin B-12) 1,000 mcg PO DAILY 12/07/23 12/07/23 Unknown 1,000 mcg tablet (Vitamin B-12) ferrous sulfate 325 mg (65 mg 325 mg PO DAILY 12/07/23 12/07/23 Unknown iron) tablet (Iron (ferrous sulfate)) insulin glargine 100 unit/mL 10 unit subcut HS 12/07/23 12/09/23 12/07/23 subcutaneous solution (Lantus U-100 Insulin) lisinopril 20 mg tablet 20 mg PO DAILY 12/07/23 12/07/23 Unknown pantoprazole 40 mg tablet,delayed 40 mg PO DAILY 12/07/23 12/07/23 Unknown release (Protonix) vancomycin 125 mg capsule 125 mg PO Q6 12/07/23 12/07/23 Unknown Active Medications Generic Name Dose Route Start Last Admin Trade Name Bipin PRN Reason Stop Dose Admin Acetaminophen 650 mg 12/07/23 23:29 12/09/23 10:42 Acetaminophen 325 Mg Tab PO 01/06/24 23:28 650 mg Q4H PRN Administration Fever/Mild Pain (Pain 1,2,3) Amitriptyline HCl 100 mg 12/10/23 09:00 12/12/23 09:13 Amitriptyline Hcl 100 Mg Tab PO 01/09/24 08:59 100 mg DAILY WESLY Administration Gee Syrup 5 ml 12/08/23 00:00 12/12/23 06:18 Gee Syrup 5 Ml Udp PO 12/18/23 00:00 5 ml Q6 WESLY Administration Collagenase 1 appln 12/08/23 11:30 12/12/23 09:14 Collagenase Oint 30 Gm Tube EXT 01/07/24 11:29 1 appln DAILY WESLY Administration Cyclobenzaprine HCl 5 mg 12/08/23 14:48 12/12/23 09:13 Cyclobenzaprine Hcl 5 Mg Tab PO 01/07/24 14:59 5 mg Q8H PRN Administration spasm Diclofenac Sodium 2 gm 12/08/23 09:00 12/12/23 08:25 Diclofenac Sod 1% Gel 100 Gm Tube EXT 01/07/24 08:59 Not Given QID [facility] Protocol Ferrous Sulfate 325 mg 12/08/23 09:00 12/12/23 09:13 Ferrous Sulfate 325 Mg Tab PO 01/07/24 08:59 325 mg DAILY WESLY Administration Fluticasone Propionate 1 sprays 12/08/23 09:00 12/12/23 09:13 Fluticasone Propionate Na Spr 16 Gm Btl NA 01/07/24 08:59 1 sprays QAM WESLY Administration Heparin Sodium (Porcine) 5,000 units 12/07/23 23:29 12/12/23 09:10 Heparin Sod 5,000 Unit/0.5 Ml Vial SQ 01/06/24 23:28 Not Given Q12 WESLY Hydromorphone HCl 1 mg 12/07/23 23:29 12/11/23 22:46 Hydromorphone Inj 1 Mg/Ml Syringe IV 12/21/23 23:28 1 mg Q3H PRN Administration Severe Pain (7,8,9,10) on NRS Sodium Chloride 1,000 mls @ 15 mls/hr 12/12/23 10:00 12/12/23 10:44 Nss IV 01/11/24 09:59 Infused .Q24H WESLY Infusion Insulin Aspart 0 units 12/07/23 23:29 12/12/23 07:53 Insulin Aspart Per Unit Charge SC 01/06/24 23:28 Not Given ACHS WESLY Insulin Glargine 5 units 12/08/23 09:00 12/12/23 08:24 Lantus Per Unit Charge SQ 01/07/24 08:59 Not Given QAM WESLY Lactobacillus Acidophilus 1,250 mg 12/10/23 09:00 12/12/23 09:13 Advanced Probiotic 625 Mg Capsule PO 01/09/24 08:59 1,250 mg DAILY WESLY Administration Levothyroxine Sodium 175 mcg 12/08/23 06:30 12/12/23 06:18 Levothyroxine Sodium 175 Mcg Tablet PO 01/07/24 06:29 175 mcg DAILYBB WESLY Administration Ondansetron HCl 4 mg 12/07/23 23:29 12/11/23 08:34 Ondansetron Inj 2 Mg/Ml 2 Ml Vial IV 01/06/24 23:28 4 mg Q6H PRN Administration Nausea Oxycodone HCl 5 mg 12/09/23 11:37 12/11/23 21:51 Oxycodone Hcl Ir 5 Mg Tab (Immediate Release) PO 12/23/23 11:36 5 mg Q6H PRN Administration Pain 6+ Pantoprazole Sodium 40 mg 12/08/23 09:00 12/12/23 09:13 Pantoprazole 40 Mg Tab PO 01/07/24 08:59 40 mg DAILY WESLY Administration Vancomycin HCl 125 mg 12/08/23 00:00 12/12/23 06:18 Vancomycin Hcl 125 Mg/2.5ml Soln PO 12/18/23 00:00 125 mg Q6 WESLY Administration NPO Date Last Intake of Fluids: 12/11/23 Time Last Intake of Fluids: 18:00 Date Last Intake of Solids: 12/11/23 Time Last Intake of Solids: 18:00 Past Medical History Medical History Hyponatremia Ulcer of right heel Fall Pseudomonas infection History of anesthesia reaction woke up during shoulder arthroscopy RBBB Hypoxia Hyperglycemia due to type 2 diabetes mellitus Pneumonia due to COVID-19 virus COVID-19 hx of in 2019--per pt was hospitalized for COVID--states no symptoms currently Bifascicular block Foot drop LEFT Chronic back pain Hx of irritable bowel syndrome Cataract Bilateral Umbilical hernia Hiatal hernia PTSD (post-traumatic stress disorder) History of diverticulitis Tear of medial meniscus of right knee, current Diabetes mellitus with hyperglycemia, with long-term current use of insulin Neck pain Narrowing of C6-C7 with bone spurs. CAUSES NUMBNESS IN LEFT ARM Anxiety Hyperlipidemia Hypertension History of migraine Hyperosmolar hyponatremia Fibromyalgia Exercise / Class Metabolic Activity III < 4 Walking/Shop/Light housework Past Family History Family History Grandfather Diabetes Mother Myocardial infarction Heart disease Tobacco abuse Hx of CABG Family/Other Family history of diabetes mellitus Brother Family history of diabetes mellitus Father Aortic aneurysm Grandmother (Paternal) Cerebral aneurysm Stroke Other Family history of colon cancer in mother Past Surgical History Surgical History History of repair of right rotator cuff History of repair of left rotator cuff History of repair of ACL L S/P rotator cuff repair History of arthroscopy of right shoulder History of dilatation and curettage History of repair of ACL R History of esophagogastroduodenoscopy (EGD) History of colonoscopy History of D&C Past Anesthesia History No Hx of Anesthesia Complications History of PONV History of PONV Social History Smoking Status: Never smoker Do You Dip or Chew Tobacco: No Hx Alcohol Use: No Hx Substance Use: No substance use type: does not use Review of Systems ROS Unobtainable: All systems reviewed & are unremarkable except as noted in HPI & below Constitutional: as per Subjective / HPI Eyes: as per Subjective / HPI Ear, Nose, Mouth, Throat: as per Subjective / HPI Respiratory: as per Subjective / HPI Cardiovascular: as per Subjective / HPI Gastrointestinal: as per Subjective / HPI Genitourinary (Female): as per Subjective / HPI Musculoskeletal: as per Subjective / HPI Integumentary: as per Subjective / HPI Neurologic: as per Subjective / HPI Psychiatric: as per Subjective / HPI Endocrine: as per Subjective / HPI Hematologic / Lymphatic: as per Subjective / HPI Allergy / Immunological: as per Subjective / HPI Physical Exam Vital Signs Last Vital Signs Temp 36.7 C 12/12/23 09:50 Pulse 94 H 12/12/23 09:50 Resp 20 12/12/23 09:50 BP 167/77 H 12/12/23 09:50 Pulse Ox 94 12/12/23 09:50 O2 Del Method Room Air 12/12/23 09:50 O2 Flow Rate 2 12/07/23 21:39 Constitutional + morbidly obese ENMT Mouth: no dentition abnormality Thyromental Distance: > or= 3.5 Finger Breadths Mallampati Class: II Neck normal visual inspection and trachea midline Respiratory normal respiratory effort Auscultation: lungs clear to auscultation bilaterally Cardiovascular Rate/Rhythm: regular rate and regular rhythm Neurologic moves all extremities Psychiatric Orientation: alert Testing Laboratory Results 12/12/23 07:39 12/12/23 07:39 Hemoglobin A1c 7.2 % (4.5-5.6) H 12/08/23 07:38 Urine Color Yellow 12/07/23 17:22 Urine Appearance Turbid (Clear) A 12/07/23 17:22 Urine pH 6.5 (4.5-7.5) 12/07/23 17:22 Ur Specific [place] 1.018 (1.000-1.030) 12/07/23 17:22 Urine Protein 3+ (Negative) H 12/07/23 17:22 Urine Glucose (UA) Trace (Negative) H 12/07/23 17:22 Urine Ketones Negative (Negative) 12/07/23 17:22 Urine Nitrite Negative (Negative) 12/07/23 17:22 Ur Leukocyte Esterase 3+ (Negative) H 12/07/23 17:22 Urine WBC (Auto) >50 /hpf (0-5) H 12/07/23 17:22 Urine RBC (Auto) >20 /hpf (0-2) H 12/07/23 17:22 U Hyaline Cast (Auto) 3-5 /lpf (0-2) H 12/07/23 17:22 U Epithel Cells (Auto) 0-2 /hpf (0-2) 12/07/23 17:22 Urine Bacteria (Auto) 2+ (None Seen) H 12/07/23 17:22 Blood Type A Positive 12/12/23 07:39 Antibody Screen NEGATIVE 12/12/23 07:39 12/07/23 17:22 Urine Culture - Final Urine,Clean Catch More than three types of organisms present, all high counts. Repeat collection recommended. No further identifications or sensitivities to follow. 12/12/23 12/12/23 10:07 07:15 POC Glucose 207 H 185 H
[2023-12-12] MEDS: BUPIVACAINE 0.5 % 5 MG/1 ML MPF 30ML VIAL ONE (11:40)
--- NOTE | 2023-12-12 11:52 | Operative Report ---
PG Post Operative Report Pre & Post Diagnosis Operation Date: 12/12/23 07:00 Pre-Op Diagnosis: RIGHT MEDIAL THIGH wound, sacral wound Post-Op Diagnosis: RIGHT MEDIAL THIGH wound, sacral I identified the patient and participated in the time-out.: Yes Procedure Operation Date: 12/12/23 07:00 Actual Procedures p Debridement of Right Thigh Wound, Debridement of Sacral Wound - Isiah Fermin DO, LUISA Surgeon Isiah Fermin DO, LUISA Senior Commissary Agent Prashanth Valentin Estimated Blood Loss 20 Findings Consistent with Post-Op Diagnosis Right medial thigh wound debrided down to healthy fat. Some questionable areas inferiorly left in place. Appeared to be venous stasis rather than pressure wound, large venous perforators ligated with 3-0 Vicryl suture and 3-0 silk ties. Total debridement measured 7 x 10 x 2 cm. Sacral ulcer debrided of fibrinous exudate and slough with curette, 2 x 1 cm x 5 mm deep. Specimens Medial thigh wound Anesthesia Type General Complications none Disposition Accompanied Patient To Recovery: No Disposition: Recovery Room Indications 63-year-old female with wound of her right medial thigh and sacral pressure ulcer. Plan for debridement of right leg wound and sacral wound. The risks of the procedure were discussed, all questions were answered, and the patient agreed to proceed with surgery as planned. Description of Procedure The patient was properly identified, consented, and taken to the operating room where she was placed in the supine position. General endotracheal anesthesia was induced. SCDs and a safety belt were placed. Preoperative antibiotics were administered. The patient was rolled into the right lateral decubitus position. The patient's medial right thigh and sacral area was prepped and draped in the standard sterile fashion. Surgical timeout was performed and all parties were in agreement that this was the correct patient and procedure to be performed and we continued as planned. We began by addressing the right medial thigh wound. There was obviously thickened and nonviable skin along with some fat. This was excised down to healthy tissue. There were large venous perforators in this area which were ligated with 3-0 silk ties and 3-0 Vicryl suture ligation. This was debrided down to healthy bleeding fat deep. There was some areas of woody and que stionable fat underlying healthy skin inferiorly to this, but this was left in place as this was felt to represent a venous stasis ulcer. The wound was irrigated and hemostasis confirmed. Local anesthetic was injected. Final measurement of the wound was 7 x 10 x 2 cm. This was packed with Kerlix gauze and covered with gauze and an ABD and a wrap was placed. Attention then turned to the sacral ulcer. There was some slough and fibrinous exudate that was debrided with a curette. Vital signs the wound measured 2 x 1 cm x 5 mm in size. Gauze, an ABD, and Medipore placed over the sacral ulcer. The patient was extubated in the operating room and taken to the PACU where she recovered without apparent incident. All sponge, instrument and needle counts were correct at the conclusion of the procedure. The patient tolerated the procedure well. The nurse practitioner was present and scrubbed for the entire the case. She was critical in positioning the patient, prepping and draping, retraction and exposure, debridement of the ulcers, and placement of the dressings. I attest to the content of the Intraoperative Record and any orders documented therein. Any exceptions are noted below.
[2023-12-12] MEDS: HYDROmorphone INJ 2 MG/ML SYR/VIAL IV PRN (12:13)
--- NOTE | 2023-12-12 12:23 | Anesthesiology Progress Note ---
Date of Service December 12, 2023 Anesthesia Post Procedure Vital Signs Vital Signs: Temp Pulse Pulse Resp BP Pulse Ox O2 Del Method 12/12/23 09:50 36.7 C 94 H 20 167/77 H 94 Room Air 12/12/23 07:42 36.7 C 63 20 149/62 H 96 Room Air 12/12/23 03:24 36.8 C 67 18 141/76 H 97 Room Air 12/11/23 23:00 76 12/11/23 22:41 37.0 C 65 18 145/79 H 97 Room Air 12/11/23 20:01 36.8 C 74 18 147/67 H 95 Room Air 12/11/23 20:00 Room Air 12/11/23 15:44 37.0 C 73 16 164/74 H 97 Room Air 12/11/23 14:04 74 Pain Intensity Right Thigh: Pain Intensity: 9 Sacrum: Pain Intensity: 9 Transfer of Care Handoff Completed per policy Notes Mental Status: alert / awake / arousable Patient Amnestic to Procedure: Yes Nausea / Vomiting: adequately controlled Pain: improving with treatment Airway Patency, RR, SpO2: stable & adequate BP & HR: stable & adequate Hydration State: stable & adequate Anesthetic Complications: no major complications apparent
[2023-12-12] MEDS: ceFAZolin 1000MG 1,000 MG/7.5 ML SYR IV SCH (14:07)
[2023-12-13 07:21] LABS: Basophils # (auto) 0.07 K/uL (0.00-0.20); Basophils % (auto) 0.5 %; Eosinophils # (auto) 0.19 K/uL (0.00-0.50); Eosinophils % (auto) 1.3 %; Hematocrit (blood only) 24.4 % (37.0-47.0); Hemoglobin 7.9 g/dl (12.0-16.0); Immature Granulocytes # (auto) 0.44 K/uL (0.01-0.20); Lymphocytes # (auto) 1.87 K/uL (1.20-3.40); Lymphocytes % (auto) 12.8 %; Mean Corpuscular Hgb Conc 32.4 g/dL (32.0-36.0); Mean Corpuscular Volume 83.3 fL (80.0-100.0); Mean Platelet Volume 10.4 fL (9.4-12.4); Monocytes # (auto) 1.12 K/uL (0.11-0.59); Monocytes % (auto) 7.7 %; Neutrophils # (auto) 10.89 K/uL (1.40-6.50); Neutrophils % (auto) 74.7 %; Platelet Count 459 K/uL (130-400); RDW Coefficient of Variation 15.9 % (11.5-14.5); RDW Standard Deviation 48.3 fL (36.4-46.3); Red Blood Count 2.93 M/uL (4.20-5.40); White Blood Count 14.58 K/ul (4.8-10.8)
[2023-12-13 07:37] LABS: BUN Creatinine Ratio 23.9 (10-20); Calcium 8.7 mg/dl (8.6-10.3); Creatinine Clr Calc Pharmacy 27.9 ml/min; Potassium 3.4 mmol/L (3.5-5.1)
[2023-12-13] MEDS ORDERED: CHLORASEPTIC (PHENOL) 1.4% SOLN 180 ML BTL MT PRN (07:40)
[2023-12-13 07:46] LABS: Anisocytosis Present; Poikilocytosis Present
--- NOTE | 2023-12-13 07:48 | Surgery Progress Note ---
Date of Service December 13, 2023 Assessment & Plan (1) S/P excisional debridement: Plan: POD 1 right thigh wound and sacral wound Pain to right thigh, added oxycodone 5-10mg q4h c/o sore throat likely from intubation, added Chloraseptic spray wound care nurse to see pt today and give recommendations on right thigh and sacral wounds general surgery will follow from the peripheral call with questions/concerns Admission and Anticipated Discharge Date Admission Date: December 07, 2023 Supervising Physician Co-Signing Physician Notes Patient seen and examined, agree with above. POD #1 debridement of right thigh ulcer, as well as light debridement of the sacral decubitus ulcer. I believe the right the ulcer represents a venous stasis ulcer. Wound care will change dressings today. She has had some pain but otherwise no major issues. Dressings left in place, no active bleeding. Wound care to manage, surgery will sign off, call with questions or concerns. Outpatient follow-up with wound care, no need to see general surgery. Subjective pt report pain from Right thigh post surgical site Review of Systems Integumentary: + wounds Physical Exam Skin: + wound Results & Data Vital Signs (Past 12 Hours) Vital Signs Temp Pulse Pulse Resp BP Pulse Ox O2 Del Method 12/13/23 02:39 97.9 F 63 18 135/79 96 Room Air 12/12/23 23:14 98.8 F 64 17 144/79 H 98 Nasal Cannula 12/12/23 21:51 69 12/12/23 20:00 Nasal Cannula O2 Flow Rate 12/13/23 02:39 12/12/23 23:14 2 12/12/23 21:51 12/12/23 20:00 1 PG Care Time/CCT Total # of Minutes Spent Total Time Spent with Patient: Total time spent is greater than 50% in coordination of care (as documented) at patient's floor/unit and/or counseling patient: Coding Level of Care Code 93196 Post Operative Follow-Up Diagnoses S/P excisional debridement Z98.890
[2023-12-13] MEDS: cefTRIAXone SODIUM 2,000 MG/50 ML BAG IV SCH (09:36)
[2023-12-13] MEDS: oxyCODONE HCL IR 5 MG TAB (IMMEDIATE RELEASE) PO PRN (12:09)
--- NOTE | 2023-12-13 15:16 | Hospitalist Progress Note ---
Date of Service December 13, 2023 Assessment & Plan (1) Cellulitis: (2) Acute kidney injury superimposed on chronic kidney disease: (3) Uncontrolled diabetes mellitus with hyperglycemia, with long-term current use of insulin: (4) C. difficile colitis: (5) Pressure ulcer: (6) Diabetic ulcer of right heel: (7) Anemia: (8) (HFpEF) heart failure with preserved ejection fraction: (9) History of osteomyelitis: (10) UTI (urinary tract infection): Plan # Weakness/Ambulatory dysfunction - Patient from [facility] due to need for rehab established after last admission - PT ordered during current admission due to persistent weakness. Patient seen during one of her sessions today, and was encouraged to continue with PT during this admission. - CM following for coordination of discharge to rehab facility. Patient preferring not to return to [facility] and states she would not like to go to [facility] as well. - Referrals sent # Cellulitis - Right medial thigh is erythematous with significant induration and eschar - MRI incomplete but no abscess or OM in right thigh - MRSA swab: negative - WBC count increased despite Ancef therapy Could be secondary to debridement from yesterday or underlying UTI Changed antibiotic from Ancef to Rocephin and urine culture collected. - Acetaminophen, oxycodone and Dilaudid as needed for pain # Anemia: - Chronic disease - Hgb 9.3 on arrival, now in 7.9 - VSS - s/p transfusion of 1 unit PRBC during debridement yesterday - Monitor CBC # (R) Thigh pain - Patient with pain in her right thigh over where her wound/cellulitis is - Believe pain is due to synergistic effect of current infection, lack of mobility, and possible cramps - Will continue with PT and pain control until CM able to find inpatient rehab center. # Acute kidney injury superimposed on chronic kidney disease: Baseline Cr ~ 1.9. AM labs w/ Cr at 2.34. Continue PO hydration Avoid nephrotoxic agents Hold lisinopril Trend BMP # Diabetes mellitus with hyperglycemia, with long-term current use of insulin: Last A1c at 7.2% on 12/08/2023 (given chronic illnesses and age, this value is within goal of 7.5-8%) Continue Lantus and SSI No hypoglycemic episodes reported # C. difficile colitis: Contact isolation precautions Vancomycin p.o. QID No recurrence of diarrhea or abdominal pain Complete Vancomycin course # Pressure ulcer: Wound care nurse following Daily wound care # Diabetic ulcer of right heel: Wound culture on 07/28/2023 grew Pseudomonas Wound culture on 01/04/2023 grew MSSA susceptible to daptomycin Daily wound care # (HFpEF) heart failure with preserved ejection fraction: Last echocardiogram on 03/19/2023 revealed LVH of 65-70% Daily weights Strict I&O monitoring Hold Bumex in the setting of PERLITA # History of osteomyelitis: A/P CT revealed erosive changes of L4 L-spine MRI w/ erosion in L4 and L5 which could be consistent with degenerative changes and no obvious OM found Plan Disposition: Discharge to inpatient rehab. CM sent referrals for [facility] and other places. Pending availability. DNR/DNI Heart healthy, T2DM diet VTE PPx: Heparin 5000u SQ q12h Admission and Anticipated Discharge Date Admission Date: December 07, 2023 Supervising Physician Co-Signing Physician Notes Attending attestation Pt seen and examined in concert with Dr. Hunter. In agreement with the documented findings as noted in the resident documentation with any exceptions or additions as noted here. No acute complaints at time of examination. Pain well controlled on present medication regimen. Reports no significant diarrheal BM. On examination, S1/S2 nl RRR no MCG. CTAB. Abd NT/ND BS+ve Ambulatory dysfunction & deconditioning - PT/OT consult appreciated - CM working for options and disposition Cellulitis of the right thigh s/p debridement - s/p debridement by general surgery - continue ceftriaxone Sacral wound, present on admission - s/p debridement C. difficle colitis - continue vancomycin PERLITA - holding lisinopril and bumetanide, very sparing use of hydration Else see resident documentation as noted. Subjective Patient evaluated during PT session. She states she is feeling pain when trying to sit up with help from PT, but once she is able to sit she feels better although uncomfortable. No fevers, chills, N/V/D, or any other sxs. Review of Systems Review of Systems: reviewed, per HPI Physical Exam Physical Exam: Constitutional: AAOx3, comfortable, NAD HEENT: NCAT, no conjunctival injection Resp: CTA, normal respiratory effort, breathing at room air GI: non distended MSK: no gross deformities appreciated Skin: wound on medial thigh covered with bandage that is c/d/i Neuro: alert, oriented, no focal neurologic deficit appreciated Results & Data Results & Data Vital Signs (Past 12 Hours) Vital Signs Temp Pulse Pulse Pulse Resp BP Pulse Ox 12/13/23 14:50 72 12/13/23 11:41 99 12/13/23 11:30 36.6 C 18 132/65 98 12/13/23 08:00 36.8 C 88 89 20 141/78 H 97 O2 Del Method O2 Flow Rate 12/13/23 14:50 12/13/23 11:41 12/13/23 11:30 Room Air 2 12/13/23 08:00 Nasal Cannula 2 Resident Activity Tracking Resident Involvement: Resident Care Provided Care Provided: Adult Hospital Medicine (5) Pressure ulcer Pressure injury location: sacral region (6) Diabetic ulcer of right heel Diabetes mellitus type: type 2 Non-pressure ulcer stage: with fat layer exposed Qualified Code(s): E11.621 - Type 2 diabetes mellitus with foot ulcer; L97.412 - Non-pressure chronic ulcer of right heel and midfoot with fat layer exposed (7) Anemia Anemia type: due to chronic kidney disease Chronic kidney disease stage: stage 4 (severe) Qualified Code(s): N18.4 - Chronic kidney disease, stage 4 (severe); D63.1 - Anemia in chronic kidney disease
[2023-12-14 07:13] LABS: Basophils # (auto) 0.05 K/uL (0.00-0.20); Basophils % (auto) 0.4 %; Eosinophils # (auto) 0.24 K/uL (0.00-0.50); Eosinophils % (auto) 1.8 %; Hematocrit (blood only) 22.6 % (37.0-47.0); Hemoglobin 7.3 g/dl (12.0-16.0); Immature Granulocytes # (auto) 0.39 K/uL (0.01-0.20); Lymphocytes # (auto) 2.12 K/uL (1.20-3.40); Mean Corpuscular Hemoglobin 27.3 pg (25.0-34.0); Mean Corpuscular Hgb Conc 32.3 g/dL (32.0-36.0); Mean Corpuscular Volume 84.6 fL (80.0-100.0); Mean Platelet Volume 10.5 fL (9.4-12.4); Monocytes # (auto) 1.15 K/uL (0.11-0.59); Monocytes % (auto) 8.7 %; Neutrophils # (auto) 9.26 K/uL (1.40-6.50); Neutrophils % (auto) 70.1 %; Platelet Count 377 K/uL (130-400); RDW Standard Deviation 48.9 fL (36.4-46.3); Red Blood Count 2.67 M/uL (4.20-5.40); White Blood Count 13.21 K/ul (4.8-10.8)
[2023-12-14 07:33] LABS: BUN Creatinine Ratio 23.8 (10-20); Calcium 8.3 mg/dl (8.6-10.3); Creatinine Clr Calc Pharmacy 26.8 ml/min; Potassium 3.6 mmol/L (3.5-5.1)
[2023-12-14 07:38] LABS: Polychromasia 2+; Spherocytes 1+
--- NOTE | 2023-12-14 12:04 | Hospitalist Progress Note ---
Date of Service December 14, 2023 Assessment & Plan (1) Cellulitis: (2) Acute kidney injury superimposed on chronic kidney disease: (3) Uncontrolled diabetes mellitus with hyperglycemia, with long-term current use of insulin: (4) C. difficile colitis: (5) Pressure ulcer: (6) Diabetic ulcer of right heel: (7) Anemia: (8) (HFpEF) heart failure with preserved ejection fraction: (9) History of osteomyelitis: (10) UTI (urinary tract infection): Plan # Weakness/Ambulatory dysfunction - Patient from [facility] due to need for rehab established after last admission - PT ordered during current admission due to persistent weakness - CM following for coordination of discharge to rehab facility - Referrals sent #Suicidal Ideation - Patient w/ hx of depression for which she was on Amitriptyline that was recently increased back to 100 mg (was decreased to 25 mg prior to admission) - Currently tearful and expressing suicidal ideations - Believe pain and limited mobility is playing a big role; depression has been worsening since admission - Will order suicide precautions/checks and consult psychiatry # Cellulitis - Right medial thigh is erythematous with significant induration and eschar; s/p debridement on 12/12/23 - MRI incomplete but no abscess or OM in right thigh - MRSA swab: negative - Continue Rocephin # Anemia: - Chronic disease - Hgb 9.3 on arrival, now in 7.3 - VSS - Monitor CBC # (R) Thigh pain - Patient with pain in her right thigh over where her wound/cellulitis is - Believe pain is due to synergistic effect of current infection, lack of mobility, and possible cramps - Will continue with PT and pain control until CM able to find inpatient rehab center. - Continue pain management w/ Oxycodone, Dilaudid, and Acetaminophen. # Acute kidney injury superimposed on chronic kidney disease: Cr above baseline (baseline Cr ~ 1.9), which may be due to poor PO intake and hydration Avoid nephrotoxic agents Hold lisinopril Trend BMP # Diabetes mellitus with hyperglycemia, with long-term current use of insulin: Last A1c at 7.2% on 12/08/2023 (given chronic illnesses and age, this value is within goal of 7.5-8%) Continue Lantus and SSI No hypoglycemic episodes reported # C. difficile colitis: Contact isolation precautions Vancomycin p.o. QID No recurrence of diarrhea or abdominal pain Complete Vancomycin course # Pressure ulcer: Wound care nurse following Daily wound care # Diabetic ulcer of right heel: Wound culture on 07/28/2023 grew Pseudomonas Wound culture on 01/04/2023 grew MSSA susceptible to daptomycin Daily wound care # (HFpEF) heart failure with preserved ejection fraction: Last echocardiogram on 03/19/2023 revealed LVH of 65-70% Daily weights Strict I&O monitoring Hold Bumex in the setting of PERLITA # History of osteomyelitis: A/P CT revealed erosive changes of L4 L-spine MRI w/ erosion in L4 and L5 which could be consistent with degenerative changes and no obvious OM found Plan Disposition: Discharge to inpatient rehab. CM sent referrals for [facility] and other places. Pending availability. DNR/DNI Heart healthy, T2DM diet VTE PPx: Heparin 5000u SQ q12h Admission and Anticipated Discharge Date Admission Date: December 07, 2023 Supervising Physician Co-Signing Physician Notes ATTESTATION I also saw the patient and confirmed parson portions of the history and exam. I agree with the impression and plan in the resident documentation, and as summarized below. She had some suicidal ideation this morning which seemed to stem from her pain. She is on 1:1 at current with psychiatry consult pending/ While patient with increased pain this morning, at time of my exam, sleeping. Remains afebrile; VSS Ambulatory dysfunction & deconditioning - PT/OT consult appreciated - CM working for options and disposition Cellulitis of the right thigh s/p debridement - s/p debridement by general surgery - appreciate surgical input; continue ceftriaxone Sacral wound, present on admission - s/p debridement C. difficle colitis - continue vancomycin PERLITA - holding lisinopril and bumetanide, very sparing use of hydration Additional per resident documentation Subjective Patient evaluated at bedside and found to be AAOx3, uncomfortable, and tearful. Patient vocalized she wishes to and stated that "if all she was going to wake up to was pain then she wanted something to make her fall asleep and never wake up". States she has a lot of pain in her right thigh and that pain medications don't help her. No chest pain, SOB, fevers, chills, N/V/D, or any other symptoms. Review of Systems Review of Systems: reviewed, per HPI Physical Exam Physical Exam: Constitutional: AAOx3, tearful, NAD HEENT: NCAT, no conjunctival injection Resp: normal respiratory effort, breathing at room air GI: non distended MSK: no gross deformities appreciated Skin: wound on medial thigh covered with wound vac Results & Data Results & Data Vital Signs (Past 12 Hours) Vital Signs Temp Pulse Pulse Resp BP Pulse Ox O2 Del Method 12/14/23 11:00 36.9 C 75 18 135/65 94 Room Air 12/14/23 08:11 69 12/14/23 08:09 37.5 C 73 18 132/70 95 Room Air 12/14/23 07:43 Room Air 12/14/23 03:12 37.0 C 66 18 130/70 97 Room Air Resident Activity Tracking Resident Involvement: Resident Care Provided Care Provided: Adult Hospital Medicine (5) Pressure ulcer Pressure injury location: sacral region (6) Diabetic ulcer of right heel Diabetes mellitus type: type 2 Non-pressure ulcer stage: with fat layer exposed Qualified Code(s): E11.621 - Type 2 diabetes mellitus with foot ulcer; L97.412 - Non-pressure chronic ulcer of right heel and midfoot with fat layer exposed (7) Anemia Anemia type: due to chronic kidney disease Chronic kidney disease stage: stage 4 (severe) Qualified Code(s): N18.4 - Chronic kidney disease, stage 4 (severe); D63.1 - Anemia in chronic kidney disease
[2023-12-15 10:05] LABS: Basophils # (auto) 0.05 K/uL (0.00-0.20); Basophils % (auto) 0.3 %; Eosinophils # (auto) 0.21 K/uL (0.00-0.50); Eosinophils % (auto) 1.4 %; Hematocrit (blood only) 23.9 % (37.0-47.0); Hemoglobin 7.5 g/dl (12.0-16.0); Immature Granulocytes # (auto) 0.41 K/uL (0.01-0.20); Immature Granulocytes % (auto) 2.7 %; Lymphocytes # (auto) 1.99 K/uL (1.20-3.40); Lymphocytes % (auto) 13.3 %; Mean Corpuscular Hemoglobin 26.5 pg (25.0-34.0); Mean Corpuscular Hgb Conc 31.4 g/dL (32.0-36.0); Mean Corpuscular Volume 84.5 fL (80.0-100.0); Mean Platelet Volume 10.3 fL (9.4-12.4); Monocytes # (auto) 1.11 K/uL (0.11-0.59); Monocytes % (auto) 7.4 %; Neutrophils % (auto) 74.9 %; Platelet Count 405 K/uL (130-400); RDW Standard Deviation 48.7 fL (36.4-46.3); Red Blood Count 2.83 M/uL (4.20-5.40); White Blood Count 14.97 K/ul (4.8-10.8)
--- NOTE | 2023-12-15 10:12 | Hospitalist Progress Note ---
Date of Service December 15, 2023 Assessment & Plan (1) Cellulitis: (2) Acute kidney injury superimposed on chronic kidney disease: (3) Uncontrolled diabetes mellitus with hyperglycemia, with long-term current use of insulin: (4) C. difficile colitis: (5) Pressure ulcer: (6) Diabetic ulcer of right heel: (7) Anemia: (8) (HFpEF) heart failure with preserved ejection fraction: (9) History of osteomyelitis: (10) UTI (urinary tract infection): Plan # Weakness/Ambulatory dysfunction - Patient from [facility] due to need for rehab established after last admission - PT ordered during current admission due to persistent weakness - CM following for coordination of discharge to rehab facility - Referrals sent #MDD // Suicidal Ideation - Patient w/ hx of depression for which she was on Amitriptyline 100 mg - Now with better pain control and good sleep patient refers improvement in her mood - Will dc 1:1 and continue to monitor changes in mood # Cellulitis - Right medial thigh is erythematous with significant induration and eschar; s/p debridement on 12/12/23 - MRI incomplete but no abscess or OM in right thigh - MRSA swab: negative - Continue Rocephin # Anemia: - Chronic disease - Hgb 9.3 on arrival, now in 7.5 - VSS - Monitor CBC # (R) Thigh pain - Patient with pain in her right thigh over where her wound/cellulitis is - Improved today - Will continue with PT and pain control until CM able to find inpatient rehab center. - Continue pain management w/ Oxycodone, Dilaudid, and Acetaminophen. # Acute kidney injury superimposed on chronic kidney disease: Cr above baseline (baseline Cr ~ 1.9), which may be due to poor PO intake and hydration Cr in am labs was 2.70 Avoid nephrotoxic agents Hold lisinopril Will give NSS 500 mL bolus then NSS @80 mL/hr x2 bags Repeat BMP in afternoon Monitor am BMP # Diabetes mellitus with hyperglycemia, with long-term current use of insulin: Last A1c at 7.2% on 12/08/2023 (given chronic illnesses and age, this value is within goal of 7.5-8%) Continue Lantus and SSI No hypoglycemic episodes reported # C. difficile colitis: Contact isolation precautions Vancomycin p.o. QID No recurrence of diarrhea or abdominal pain Complete Vancomycin course # Pressure ulcer: Wound care nurse following Daily wound care # Diabetic ulcer of right heel: Wound culture on 07/28/2023 grew Pseudomonas Wound culture on 01/04/2023 grew MSSA susceptible to daptomycin Daily wound care # (HFpEF) heart failure with preserved ejection fraction: Last echocardiogram on 03/19/2023 revealed LVH of 65-70% Daily weights Strict I&O monitoring Hold Bumex in the setting of PERLITA # History of osteomyelitis: A/P CT revealed erosive changes of L4 L-spine MRI w/ erosion in L4 and L5 which could be consistent with degenerative changes and no obvious OM found Plan Disposition: Discharge to inpatient rehab. CM sent referrals for [facility] and other places. Pending availability. DNR/DNI Heart healthy, T2DM diet VTE PPx: Heparin 5000u SQ q12h Admission and Anticipated Discharge Date Admission Date: December 07, 2023 Supervising Physician Co-Signing Physician Notes ATTESTATION I also saw the patient and confirmed parson portions of the history and exam. I agree with the impression and plan in the resident documentation, and as summarized below. Upon my exam today, she is feeling better. She is "cautiously optimistic." Pain is better controlled. EXAM 125.73, 78, 18 Smiles. NAD. CV regular Respirations non labored, Lungs cleat DATA Labs WBC slight upward to 14.97 HgB = 7.5 Sodium 128, BUN 64, Cr 2.7 IMPRESSION & PLAN Ambulatory dysfunction & deconditioning - PT/OT consult appreciated - CM working for options and disposition Cellulitis of the right thigh s/p debridement - Pain control better today. s/p debridement by general surgery - appreciate surgical input; continue ceftriaxone Sacral wound, present on admission - s/p debridement C. difficle colitis - continue vancomycin PERLITA - holding lisinopril and bumetanide, very sparing use of hydration. Given increased creatinine today, small bolus and maintenance fluid added Additional per resident documentation Subjective Patient w/ improved pain control and improved mood. Got good sleep last night and ate her breakfast without problems. No chest mckeon, SOB, fevers, chills, or other symptoms. Review of Systems Review of Systems: reviewed, per HPI Physical Exam Physical Exam: Constitutional: AAOx3, tearful, NAD HEENT: NCAT, no conjunctival injection Resp: normal respiratory effort, breathing at room air GI: non distended MSK: no gross deformities appreciated Skin: wound on medial thigh covered with wound vac Results & Data Results & Data Vital Signs (Past 12 Hours) Vital Signs Temp Pulse Pulse Resp BP BP Pulse Ox 12/15/23 07:44 37.0 C 79 18 150/73 H 97 12/15/23 07:35 83 12/15/23 06:02 36.9 C 78 18 131/71 96 12/15/23 00:46 94 H 12/14/23 23:50 12/14/23 23:22 36.8 C 96 H 18 167/85 H 97 12/14/23 22:17 O2 Del Method 12/15/23 07:44 Room Air 12/15/23 07:35 12/15/23 06:02 Room Air 12/15/23 00:46 12/14/23 23:50 Room Air 12/14/23 23:22 Room Air 12/14/23 22:17 Room Air Resident Activity Tracking Resident Involvement: Resident Care Provided Care Provided: Adult Hospital Medicine (5) Pressure ulcer Pressure injury location: sacral region (6) Diabetic ulcer of right heel Diabetes mellitus type: type 2 Non-pressure ulcer stage: with fat layer exposed Qualified Code(s): E11.621 - Type 2 diabetes mellitus with foot ulcer; L97.412 - Non-pressure chronic ulcer of right heel and midfoot with fat layer exposed (7) Anemia Anemia type: due to chronic kidney disease Chronic kidney disease stage: stage 4 (severe) Qualified Code(s): N18.4 - Chronic kidney disease, stage 4 (severe); D63.1 - Anemia in chronic kidney disease
[2023-12-15 10:19] LABS: BUN Creatinine Ratio 23.7 (10-20); Calcium 8.4 mg/dl (8.6-10.3); Creatinine Clr Calc Pharmacy 24.6 ml/min; Potassium 3.9 mmol/L (3.5-5.1)
[2023-12-15 10:51] LABS: Acanthocytes 1+; Polychromasia 1+; Rouleaux 1+; Spherocytes 1+
[2023-12-15] MEDS: SODIUM CHLORIDE 0.9% 500 ML IV ONE (13:38)
[2023-12-15] MEDS: SODIUM CHLORIDE 0.9% 1,000 ML IV SCH (13:39)
--- NOTE | 2023-12-15 15:09 | Psychiatric Consultation ---
Date of Consultation December 15, 2023 Impression / Recommendations Impression MDD, recurrent, unspecified (1) Major depressive disorder, recurrent, in remission, unspecified: Present on Admission?: Yes Plan Continue Elavil 100mg daily - patient doing well on this and can help both depression & pain No indication for acute psychiatric intervention, does not demonstrate need for inpatient admission at this time. No changes to psychotropics indicated at this time. CPT Code Overall, I spent a total of 60 minutes with this case, including review of chart, direct evaluation of the patient, counseling the patient, reviewing medication, discussion with psychiatric liason, risk assessment, and documentation. Psych History Chief Complaint "[]". History of Present Illness 63 year old F with PMH of IDDM, pressure ulcer, diabetic ulcer of R heel, HFpEF, osteomyelitis (resolved), CKD & anemia of chronic disease. Patient admitted on 12/06 for pain from wounds, with concern of possible wound infection. Also found to have PERLITA superimposed on CKD & C Diff colitis. During hospital stay patient expressed possible SI, psychiatry consulted to assess. Psychiatric liason initially met with patient, we discused the case and then I met with patient as well. She was sitting up in bed, appeared for the most part comfortable, pleasant and smiling spontaneously when we spoke. Patient did report struggling with depressed mood in the context of chronic illness & chronic pain. She also admitted to intermittently having passive SI relating to this - feeling frustrated and having thoughts such as not wanting to wake up at times. Denies active SI however, no plans, does not actually want to , rather wants to feel better physically. She does not have much family left, however does have a support network of friends whom she considers to be positive supports & is future oriented to not wanting to hurt them. Also reports a history of depression, with anhedonia, amotivation, isolation, tearfulness, low energy and negative ruminations. Unclear if multiple episodes or single, however depression seems to recur if she's not taking Elavil at adequate dose. She does note however that the Elavil 100mg she is currently taking has helped significantly with this. She reported that for some reason she was taking a lower dose than 100mg and she believes this also contributed to her feeling more depressed, however now that she is back on 100mg she is feeling better again. Pain has been better managed as well and this too has helped mood improve. She smiled spontaneously & appropriately throughout interview, was looking forward to seeing friends and was also looking forward to rehab so she could feel more like herself again. Past Psychiatric History Previous Psych History: See above - did previously see outpatient psychiatrist and therapist but does not remember details (PCP prescribing Elavil) Previous Psych Admissions: Possibly an admission in the past but does not remember much details Do You Have Access To A Gun?: No History of Previous Suicide Attempt: No Describe Attempts in the Past: N/A Past Medication Trials: Unclear as she has difficulty remembering details at this time, likely due to sleepiness from pain medications Allergies Allergy/AdvReac Type Severity Reaction Status Date / Time amoxicillin Allergy Intermediate hives Verified 12/07/23 21:03 dextromethorphan Allergy Intermediate Hives Verified 12/07/23 21:03 [From NyQuil] doxylamine [From NyQuil] Allergy Intermediate Hives Verified 12/07/23 21:03 gluten Allergy Intermediate Hives Verified 12/07/23 21:03 latex Allergy Intermediate RASH Verified 12/07/23 21:03 Sulfa (Sulfonamide Allergy Intermediate RASH Verified 12/07/23 21:03 Antibiotics) clarithromycin AdvReac Intermediate HEART RACES Verified 12/07/23 21:03 Umesh's multigrain bread Allergy Intermediate Hives Uncoded 12/07/23 18:28 Home Medications Medication Instructions Recorded Confirmed Type fluticasone propionate 50 50 mcg intranasal QAM 03/10/19 12/07/23 History mcg/actuation nasal spray,suspension (Flonase Allergy Relief) levothyroxine 175 mcg tablet 175 mcg PO QAM 03/10/19 12/07/23 History (Synthroid) loratadine 10 mg tablet 5 mg PO DAILY PRN Allergy Symptoms 01/19/21 12/07/23 History pen needle, diabetic 32 gauge x 06/20/21 05/03/23 History 5/32" (BD Ultra-Fine Siria Pen Needle) blood sugar diagnostic (FreeStyle 06/29/21 05/03/23 History Precision Perico Strips) flash glucose scanning reader 06/29/21 05/03/23 History (FreeStyle Davy 14 Day [place]) flash glucose sensor (FreeStyle 06/29/21 05/03/23 History Davy 14 Day Sensor kit) lancets 30 gauge (OneTouch Delica 06/29/21 05/03/23 History Lancets) cholecalciferol (vitamin D3) 50 50 mcg PO QAM 02/09/22 12/07/23 History mcg (2,000 unit) capsule (Vitamin D3) albuterol sulfate 90 mcg/actuation 2 puff inhalation QID PRN wheezing 03/19/23 12/07/23 History aerosol inhaler (Proventil HFA) acetaminophen 325 mg tablet 650 mg (2 x 325 mg) PO Q4H PRN 04/12/23 12/07/23 Rx pain #30 tabs insulin aspart U-100 100 unit/mL See Rx Instructions .Route .COMPLEX 04/13/23 12/09/23 History subcutaneous solution (Novolog U-100 Insulin aspart) insulin detemir U-100 100 unit/mL 0 unit subcut BID 07/27/23 12/07/23 History (3 mL) subcutaneous pen (Levemir FlexPen) simvastatin 40 mg tablet 40 mg PO HS 07/27/23 12/07/23 History diclofenac sodium 1 % topical gel 2 g EXT QID #100 grams 08/13/23 12/07/23 Rx (Voltaren Arthritis Pain) amitriptyline 100 mg tablet 0 mg PO HS Did Not Take/[facility] 12/07/23 12/07/23 History amitriptyline 25 mg tablet 25 mg PO DAILY 12/07/23 12/07/23 History bumetanide 1 mg tablet 2 mg PO QAM 12/07/23 12/07/23 History collagenase clostridium histo. 250 250 unit topical 2XD 12/07/23 12/07/23 History unit/gram topical ointment (Santyl) cyanocobalamin (vitamin B-12) 1,000 mcg PO DAILY 12/07/23 12/07/23 History 1,000 mcg tablet (Vitamin B-12) ferrous sulfate 325 mg (65 mg 325 mg PO DAILY 12/07/23 12/07/23 History iron) tablet (Iron (ferrous sulfate)) insulin glargine 100 unit/mL 10 unit subcut HS 12/07/23 12/09/23 History subcutaneous solution (Lantus U-100 Insulin) lisinopril 20 mg tablet 20 mg PO DAILY 12/07/23 12/07/23 History pantoprazole 40 mg tablet,delayed 40 mg PO DAILY 12/07/23 12/07/23 History release (Protonix) vancomycin 125 mg capsule 125 mg PO Q6 12/07/23 12/07/23 History Patient History Medical History (Updated 12/16/23 @ 15:04 by Candie Matos MD) Hyponatremia Ulcer of right heel Fall Pseudomonas infection History of anesthesia reaction woke up during shoulder arthroscopy RBBB Hypoxia Hyperglycemia due to type 2 diabetes mellitus Pneumonia due to COVID-19 virus COVID-19 hx of in 2019--per pt was hospitalized for COVID--states no symptoms currently Bifascicular block Foot drop LEFT Chronic back pain Hx of irritable bowel syndrome Cataract Bilateral Umbilical hernia Hiatal hernia PTSD (post-traumatic stress disorder) History of diverticulitis Tear of medial meniscus of right knee, current Diabetes mellitus with hyperglycemia, with long-term current use of insulin Neck pain Narrowing of C6-C7 with bone spurs. CAUSES NUMBNESS IN LEFT ARM Anxiety Hyperlipidemia Hypertension History of migraine Hyperosmolar hyponatremia Fibromyalgia Surgical History (Updated 12/13/23 @ 14:42 by Ryann Castaneda RN) S/P debridement (12/12/23) Debridement of Right Thigh Wound, Debridement of Sacral Wound - Isiah Fermin, DO, FACS History of repair of right rotator cuff History of repair of left rotator cuff History of repair of ACL L S/P rotator cuff repair History of arthroscopy of right shoulder History of dilatation and curettage History of repair of ACL R History of esophagogastroduodenoscopy (EGD) History of colonoscopy History of D&C Family History Grandfather Diabetes Mother Myocardial infarction Heart disease Tobacco abuse Hx of CABG Family/Other Family history of diabetes mellitus Brother Family history of diabetes mellitus Father Aortic aneurysm Grandmother (Paternal) Cerebral aneurysm Stroke Other Family history of colon cancer in mother Social History Smoking Status: Never smoker Second Hand Exposure: No; Do You Dip or Chew Tobacco: No; Tobacco Cessation Education Requested by Patient: No Hx Alcohol Use: No Hx Substance Use: No Preferred Language: Kyrgyz Communication Ability: Effective Visual Impairment: No Limitations Manager Route Required: No Beliefs That Will Affect Care: None marital status: Current Living Situation: Rehab Other Information That Helps Us Care for You: No Feels Safe at Home: Yes Safety Concerns: Feels Safe At This Time Assistive Devices: Glasses, Oxygen - at Night, Walker and Wheelchair Physical Exam Mental Examination: Fully oriented, pleasant, cooperative. Appearance: Well Groomed Eye Contact: Maintains Eye Contact Motor Behavior: Unremarkable Speech: Normal Mood: Calm (still feels a bit low but not acutely depressed & feeling better every day) Affect: Appropriate Thought Process: Intact Thought Content: Intact Hallucinations: None Insight: Good Judgement: Good Psychiatric: A+Ox3, euthymic affect Orientation: alert and oriented x 3 Vital Signs (Past 24 Hours): Last Vital Signs Temp 36.9 C 12/15/23 11:16 Pulse 78 12/15/23 11:16 Resp 18 12/15/23 11:16 BP 125/73 12/15/23 11:16 Pulse Ox 94 12/15/23 11:16 O2 Del Method Room Air 12/15/23 11:16 O2 Flow Rate 2 12/13/23 23:23 Constitutional: + obese; no acute distress, not ill appe aring, not in distress and not diaphoretic Results & Data (PSY) Medications Administered Acetaminophen (Acetaminophen 325 Mg Tab) 650 mg PO Q4H PRN PRN Reason: Fever/Mild Pain (Pain 1,2,3) Stop: 01/06/24 23:28 Last Admin: 12/15/23 09:18 Dose: 650 mg Documented By: Admin: 12/09/23 10:42 Dose: 650 mg Documented By: KENZIE Amitriptyline HCl (Amitriptyline Hcl 100 Mg Tab) 100 mg PO DAILY [facility] Stop: 01/09/24 08:59 Last Admin: 12/15/23 08:35 Dose: 100 mg Documented By: Admin: 12/14/23 08:18 Dose: 100 mg Documented By: Admin: 12/13/23 09:36 Dose: 100 mg Documented By: Admin: 12/12/23 09:13 Dose: 100 mg Documented By: Admin: 12/11/23 08:13 Dose: 100 mg Documented By: Admin: 12/10/23 08:14 Dose: 100 mg Documented By: KENZIE Gee Syrup (Gee Syrup 5 Ml Udp) 5 ml PO Q6 [facility] Stop: 12/18/23 00:00 Last Admin: 12/15/23 12:21 Dose: 5 ml Documented By: Admin: 12/15/23 06:03 Dose: 5 ml Documented By: Admin: 12/14/23 23:13 Dose: 5 ml Documented By: Admin: 12/14/23 18:52 Dose: 5 ml Documented By: Admin: 12/14/23 16:20 Dose: 5 ml Documented By: Admin: 12/14/23 06:01 Dose: 5 ml Documented By: Admin: 12/14/23 00:57 Dose: 5 ml Documented By: Admin: 12/13/23 18:42 Dose: 5 ml Documented By: Admin: 12/13/23 12:04 Dose: 5 ml Documented By: Admin: 12/13/23 05:33 Dose: 5 ml Documented By: Admin: 12/13/23 00:43 Dose: 5 ml Documented By: Admin: 12/12/23 17:18 Dose: 5 ml Documented By: Admin: 12/12/23 15:13 Dose: 5 ml Documented By: KERufino Admin: 12/12/23 06:18 Dose: 5 ml Documented By: RNHua Admin: 12/12/23 00:59 Dose: 5 ml Documented By: RNHua Admin: 12/11/23 18:03 Dose: 5 ml Documented By: Admin: 12/11/23 12:29 Dose: 5 ml Documented By: Admin: 12/11/23 05:53 Dose: 5 ml Documented By: Admin: 12/11/23 00:48 Dose: 5 ml Documented By: Admin: 12/10/23 17:15 Dose: 5 ml Documented By: Admin: 12/10/23 12:37 Dose: 5 ml Documented By: Admin: 12/10/23 05:34 Dose: 5 ml Documented By: Admin: 12/09/23 23:53 Dose: 5 ml Documented By: Admin: 12/09/23 17:32 Dose: 5 ml Documented By: Admin: 12/09/23 12:48 Dose: 5 ml Documented By: KERufino Admin: 12/09/23 06:14 Dose: 5 ml Documented By: Admin: 12/08/23 23:22 Dose: 5 ml Documented By: Admin: 12/08/23 17:32 Dose: 5 ml Documented By: Admin: 12/08/23 11:57 Dose: 5 ml Documented By: Admin: 12/08/23 06:15 Dose: 5 ml Documented By: Admin: 12/08/23 01:28 Dose: 5 ml Documented By: RUDY Collagenase (Collagenase Oint 30 Gm Tube) 1 appln EXT DAILY [facility] Stop: 01/07/24 11:29 Last Admin: 12/15/23 08:58 Dose: 1 appln Documented By: Admin: 12/14/23 08:20 Dose: Not Given Documented By: Admin: 12/13/23 09:37 Dose: 1 appln Documented By: Admin: 12/12/23 09:14 Dose: 1 appln Documented By: Admin: 12/11/23 08:13 Dose: 1 appln Documented By: Admin: 12/10/23 08:13 Dose: 1 appln Documented By: Admin: 12/09/23 08:29 Dose: 1 appln Documented By: Admin: 12/08/23 11:58 Dose: 1 appln Documented By: KENZIE Cyclobenzaprine HCl (Cyclobenzaprine Hcl 5 Mg Tab) 5 mg PO Q8H PRN PRN Reason: spasm Stop: 01/07/24 14:59 Last Admin: 12/14/23 22:45 Dose: 5 mg Documented By: Admin: 12/12/23 09:13 Dose: 5 mg Documented By: Admin: 12/10/23 15:23 Dose: 5 mg Documented By: Admin: 12/10/23 05:34 Dose: 5 mg Documented By: Admin: 12/09/23 10:42 Dose: 5 mg Documented By: Admin: 12/09/23 00:20 Dose: 5 mg Documented By: Admin: 12/08/23 16:09 Dose: 5 mg Documented By: KENZIE Diclofenac Sodium (Diclofenac Sod 1% Gel 100 Gm Tube) 2 gm EXT QID [facility]; Protocol Stop: 01/07/24 08:59 Last Admin: 12/15/23 13:42 Dose: Not Given Documented By: Admin: 12/15/23 08:33 Dose: Not Given Documented By: Admin: 12/14/23 21:43 Dose: 2 gm Documented By: Admin: 12/14/23 17:34 Dose: Not Given Documented By: Admin: 12/14/23 12:17 Dose: Not Given Documented By: Admin: 12/14/23 08:19 Dose: Not Given Documented By: Admin: 12/13/23 20:26 Dose: Not Given Documented By: Admin: 12/13/23 17:23 Dose: Not Given Documented By: Admin: 12/13/23 12:04 Dose: Not Given Documented By: Admin: 12/13/23 09:38 Dose: 2 gm Documented By: Admin: 12/12/23 19:29 Dose: Not Given Documented By: Admin: 12/12/23 16:24 Dose: Not Given Documented By: Admin: 12/12/23 13:55 Dose: Not Given Documented By: Admin: 12/12/23 08:25 Dose: Not Given Documented By: Admin: 12/11/23 21:49 Dose: Not Given Documented By: Admin: 12/11/23 17:11 Dose: Not Given Documented By: Admin: 12/11/23 12:29 Dose: Not Given Documented By: Admin: 12/11/23 08:13 Dose: Not Given Documented By: Admin: 12/10/23 20:20 Dose: Not Given Documented By: Admin: 12/10/23 16:59 Dose: Not Given Documented By: Admin: 12/10/23 12:38 Dose: Not Given Documented By: Admin: 12/10/23 08:14 Dose: Not Given Documented By: Admin: 12/09/23 21:02 Dose: Not Given Documented By: Admin: 12/09/23 17:32 Dose: Not Given Documented By: Admin: 12/09/23 12:49 Dose: Not Given Documented By: Admin: 12/09/23 08:28 Dose: Not Given Documented By: Admin: 12/08/23 20:52 Dose: Not Given Documented By: Admin: 12/08/23 17:33 Dose: Not Given Documented By: Admin: 12/08/23 11:59 Dose: 2 gm Documented By: Admin: 12/08/23 08:33 Dose: Not Given Documented By: KENZIE Ferrous Sulfate (Ferrous Sulfate 325 Mg Tab) 325 mg PO DAILY [facility] Stop: 01/07/24 08:59 Last Admin: 12/15/23 08:36 Dose: 325 mg Documented By: Admin: 12/14/23 08:18 Dose: 325 mg Documented By: Admin: 12/13/23 09:36 Dose: 325 mg Documented By: Admin: 12/12/23 09:13 Dose: 325 mg Documented By: Admin: 12/11/23 08:13 Dose: 325 mg Documented By: Admin: 12/10/23 08:14 Dose: 325 mg Documented By: Admin: 12/09/23 08:28 Dose: 325 mg Documented By: Admin: 12/08/23 08:33 Dose: 325 mg Documented By: KENZIE Fluticasone Propionate (Fluticasone Propionate Na Spr 16 Gm Btl) 1 sprays NA QAM [facility] Stop: 01/07/24 08:59 Last Admin: 12/15/23 08:38 Dose: 1 sprays Documented By: Admin: 12/14/23 08:19 Dose: 1 sprays Documented By: Admin: 12/13/23 09:37 Dose: 1 sprays Documented By: Admin: 12/12/23 09:13 Dose: 1 sprays Documented By: Admin: 12/11/23 08:13 Dose: 1 sprays Documented By: Admin: 12/10/23 08:13 Dose: 1 sprays Documented By: Admin: 12/09/23 08:29 Dose: 1 sprays Documented By: Admin: 12/08/23 08:34 Dose: 1 sprays Documented By: KENZIE Heparin Sodium (Porcine) (Heparin Sod 5,000 Unit/0.5 Ml Vial) 5,000 units SQ Q12 [facility] Stop: 01/06/24 23:28 Last Admin: 12/15/23 08:55 Dose: 5,000 units Documented By: Admin: 12/14/23 21:48 Dose: 5,000 units Documented By: Admin: 12/14/23 08:28 Dose: 5,000 units Documented By: Admin: 12/13/23 20:44 Dose: 5,000 units Documented By: Admin: 12/13/23 09:51 Dose: 5,000 units Documented By: Admin: 12/12/23 19:28 Dose: 5,000 units Documented By: Admin: 12/12/23 09:10 Dose: Not Given Documented By: Admin: 12/11/23 21:47 Dose: 5,000 units Documented By: Admin: 12/11/23 08:14 Dose: 5,000 units Documented By: Admin: 12/10/23 20:31 Dose: 5,000 units Documented By: Admin: 12/10/23 08:13 Dose: 5,000 units Documented By: Admin: 12/09/23 20:59 Dose: 5,000 units Documented By: Admin: 12/09/23 08:29 Dose: 5,000 units Documented By: Admin: 12/08/23 20:53 Dose: 5,000 units Documented By: Admin: 12/08/23 09:03 Dose: 5,000 units Documented By: Admin: 12/08/23 00:21 Dose: 5,000 units Documented By: RUDY Hydromorphone HCl (Hydromorphone Inj 1 Mg/Ml Syringe) 1 mg IV Q3H PRN PRN Reason: Severe Pain (7,8,9,10) on NRS Stop: 12/21/23 23:28 Last Admin: 12/14/23 10:59 Dose: 1 mg Documented By: Admin: 12/13/23 20:43 Dose: 1 mg Documented By: Admin: 12/13/23 05:33 Dose: 1 mg Documented By: Admin: 12/12/23 20:15 Dose: 1 mg Documented By: Admin: 12/11/23 22:46 Dose: 1 mg Documented By: Admin: 12/11/23 15:28 Dose: 1 mg Documented By: Admin: 12/10/23 21:54 Dose: 1 mg Documented By: Admin: 12/09/23 21:12 Dose: 1 mg Documented By: Admin: 12/08/23 10:35 Dose: 1 mg Documented By: Admin: 12/08/23 00:22 Dose: 1 mg Documented By: RUDY Ceftriaxone Sodium (Rocephin) 2,000 mg in 50 mls @ 100 mls/hr IV Q24H [facility] Stop: 12/20/23 08:59 Last Infusion: 12/15/23 09:50 Dose: Infused Documented By: Admin: 12/15/23 09:19 Dose: 100 mls/hr Documented By: Infusion: 12/14/23 12:17 Dose: Infused Documented By: Admin: 12/14/23 11:37 Dose: 100 mls/hr Documented By: Infusion: 12/13/23 11:12 Dose: Infused Documented By: Admin: 12/13/23 09:36 Dose: 100 mls/hr Documented By: PK Sodium Chloride (Nss) 1,000 mls @ 80 mls/hr IV .[id number] [facility] Stop: 12/16/23 13:14 Last Admin: 12/15/23 13:39 Dose: 80 mls/hr Documented By: AM Insulin Aspart (Insulin Aspart Per Unit Charge) 0 units SC ACHS [facility] Stop: 01/06/24 23:28 Last Admin: 12/15/23 12:19 Dose: 8 units Documented By: AM Co-signed By: ZAHRA Admin: 12/15/23 08:55 Dose: 8 units Documented By: AM Co-signed By: CHRIS Admin: 12/14/23 21:42 Dose: 2 units Documented By: DELIA Co-signed By: SHERRY Admin: 12/14/23 17:32 Dose: 3 units Documented By: AM Co-signed By: ZAHRA Admin: 12/14/23 12:19 Dose: Not Given Documented By: Admin: 12/14/23 08:22 Dose: 1 units Documented By: PK Co-signed By: LCS Admin: 12/13/23 20:44 Dose: 3 units Documented By: MARISEL Co-signed By: JAMARI Admin: 12/13/23 17:43 Dose: 4 units Documented By: PK Co-signed By: MS Admin: 12/13/23 12:20 Dose: Not Given Documented By: Admin: 12/13/23 09:39 Dose: Not Given Documented By: Admin: 12/12/23 20:04 Dose: 2 units Documented By: GTJanelle Co-signed By: DOMINICK Admin: 12/12/23 19:47 Dose: 3 units Documented By: GTH Co-signed By: DOMINICK Admin: 12/12/23 16:23 Dose: Not Given Documented By: Admin: 12/12/23 14:06 Dose: 2 units Documented By: KENZIE Co-signed By: ALIA Admin: 12/12/23 07:53 Dose: Not Given Documented By: Admin: 12/11/23 21:47 Dose: 4 units Documented By: MARYANN Co-signed By: DOMINICK Admin: 12/11/23 17:10 Dose: 2 units Documented By: ZAHRA Co-signed By: CRISTEL Admin: 12/11/23 12:20 Dose: 3 units Documented By: ZAHRA Co-signed By: BAILEY Admin: 12/11/23 08:28 Dose: 4 units Documented By: ZAHRA Co-signed By: Admin: 12/10/23 20:32 Dose: 4 units Documented By: PALOMO Co-signed By: ABELINO Admin: 12/10/23 16:58 Dose: Not Given Documented By: Admin: 12/10/23 12:38 Dose: 3 units Documented By: KENZIE Co-signed By: BAILEY Admin: 12/10/23 08:11 Dose: 6 units Documented By: KENZIE Co-signed By: BAILEY Admin: 12/09/23 20:59 Dose: 2 units Documented By: RUDY Co-signed By: COLEEN Admin: 12/09/23 17:31 Dose: 5 units Documented By: KENZIE Co-signed By: Admin: 12/09/23 12:48 Dose: 13 units Documented By: KENZIE Co-signed By: Admin: 12/09/23 08:26 Dose: 4 units Documented By: KENZIE Co-signed By: Admin: 12/08/23 20:53 Dose: 2 units Documented By: RUDY Co-signed By: SHEREEN Admin: 12/08/23 17:32 Dose: 4 units Documented By: KENZIE Co-signed By: Admin: 12/08/23 11:47 Dose: Not Given Documented By: Admin: 12/08/23 08:30 Dose: 4 units Documented By: KENZIE Co-signed By: Admin: 12/08/23 00:21 Dose: 2 units Documented By: RUDY Co-signed By: MARYJO Insulin Glargine (Lantus Per Unit Charge) 5 units SQ QAM [facility] Stop: 01/07/24 08:59 Last Admin: 12/15/23 08:55 Dose: 5 units Documented By: AM Co-signed By: ARV Admin: 12/14/23 08:22 Dose: 5 units Documented By: IAIN Co-signed By: ZAHRA Admin: 12/13/23 09:51 Dose: 5 units Documented By: PK Co-signed By: JOE Admin: 12/12/23 08:24 Dose: Not Given Documented By: Admin: 12/11/23 08:28 Dose: 5 units Documented By: ZAHRA Co-signed By: Admin: 12/10/23 08:12 Dose: 5 units Documented By: KENZIE Co-signed By: BAILEY Admin: 12/09/23 08:27 Dose: 5 units Documented By: KENZIE Co-signed By: Admin: 12/08/23 08:31 Dose: 5 units Documented By: KENZIE Co-signed By: Lactobacillus Acidophilus (Advanced Probiotic 625 Mg Capsule) 1,250 mg PO DAILY [facility] Stop: 01/09/24 08:59 Last Admin: 12/15/23 08:35 Dose: 1,250 mg Documented By: Admin: 12/14/23 08:19 Dose: 1,250 mg Documented By: Admin: 12/13/23 09:37 Dose: 1,250 mg Documented By: Admin: 12/12/23 09:13 Dose: 1,250 mg Documented By: Admin: 12/11/23 08:13 Dose: 1,250 mg Documented By: Admin: 12/10/23 08:14 Dose: 1,250 mg Documented By: KENZIE Levothyroxine Sodium (Levothyroxine Sodium 175 Mcg Tablet) 175 mcg PO DAILYBB [facility] Stop: 01/07/24 06:29 Last Admin: 12/15/23 06:03 Dose: 175 mcg Documented By: Admin: 12/14/23 06:01 Dose: 175 mcg Documented By: Admin: 12/13/23 05:33 Dose: 175 mcg Documented By: Admin: 12/12/23 06:18 Dose: 175 mcg Documented By: Admin: 12/11/23 05:53 Dose: 175 mcg Documented By: Admin: 12/10/23 05:34 Dose: 175 mcg Documented By: Admin: 12/09/23 06:14 Dose: 175 mcg Documented By: Admin: 12/08/23 06:15 Dose: 175 mcg Documented By: RUDY Ondansetron HCl (Ondansetron Inj 2 Mg/Ml 2 Ml Vial) 4 mg IV Q6H PRN PRN Reason: Nausea Stop: 01/06/24 23:28 Last Admin: 12/11/23 08:34 Dose: 4 mg Documented By: ZAHRA Oxycodone HCl (Oxycodone Hcl Ir 5 Mg Tab (Immediate Release)) 10 mg PO Q4H PRN PRN Reason: Severe Pain (Scale 7, 8, 9,10) Stop: 12/27/23 07:39 Last Admin: 12/14/23 22:49 Dose: 10 mg Documented By: Admin: 12/14/23 08:18 Dose: 10 mg Documented By: Admin: 12/13/23 17:43 Dose: 10 mg Documented By: Admin: 12/13/23 12:09 Dose: 10 mg Documented By: IAIN Pantoprazole Sodium (Pantoprazole 40 Mg Tab) 40 mg PO DAILY [facility] Stop: 01/07/24 08:59 Last Admin: 12/15/23 08:35 Dose: 40 mg Documented By: Admin: 12/14/23 08:19 Dose: 40 mg Documented By: Admin: 12/13/23 09:37 Dose: 40 mg Documented By: Admin: 12/12/23 09:13 Dose: 40 mg Documented By: Admin: 12/11/23 08:14 Dose: 40 mg Documented By: Admin: 12/10/23 08:14 Dose: 40 mg Documented By: Admin: 12/09/23 08:28 Dose: 40 mg Documented By: Admin: 12/08/23 08:33 Dose: 40 mg Documented By: KENZIE Vancomycin HCl (Vancomycin Hcl 125 Mg/2.5ml Soln) 125 mg PO Q6 [facility] Stop: 12/18/23 00:00 Last Admin: 12/15/23 12:21 Dose: 125 mg Documented By: Admin: 12/15/23 06:03 Dose: 125 mg Documented By: MNBrielle Admin: 12/14/23 23:13 Dose: 125 mg Documented By: Admin: 12/14/23 18:52 Dose: 125 mg Documented By: Admin: 12/14/23 16:20 Dose: 125 mg Documented By: Admin: 12/14/23 06:01 Dose: 125 mg Documented By: Admin: 12/14/23 00:57 Dose: 125 mg Documented By: Admin: 12/13/23 18:42 Dose: 125 mg Documented By: Admin: 12/13/23 12:04 Dose: 125 mg Documented By: Admin: 12/13/23 05:33 Dose: 125 mg Documented By: Admin: 12/13/23 00:43 Dose: 125 mg Documented By: Admin: 12/12/23 17:18 Dose: 125 mg Documented By: Admin: 12/12/23 15:13 Dose: 125 mg Documented By: Admin: 12/12/23 06:18 Dose: 125 mg Documented By: Admin: 12/12/23 00:59 Dose: 125 mg Documented By: Admin: 12/11/23 18:03 Dose: 125 mg Documented By: Admin: 12/11/23 12:29 Dose: 125 mg Documented By: Admin: 12/11/23 05:53 Dose: 125 mg Documented By: Admin: 12/11/23 00:48 Dose: 125 mg Documented By: Admin: 12/10/23 17:15 Dose: 125 mg Documented By: Admin: 12/10/23 12:37 Dose: 125 mg Documented By: Admin: 12/10/23 05:34 Dose: 125 mg Documented By: Admin: 12/09/23 23:53 Dose: 125 mg Documented By: Admin: 12/09/23 17:32 Dose: 125 mg Documented By: Admin: 12/09/23 12:48 Dose: 125 mg Documented By: Admin: 12/09/23 06:14 Dose: 125 mg Documented By: Admin: 12/08/23 23:22 Dose: 125 mg Documented By: Admin: 12/08/23 17:32 Dose: 125 mg Documented By: Admin: 12/08/23 11:57 Dose: 125 mg Documented By: Admin: 12/08/23 06:15 Dose: 125 mg Documented By: Admin: 12/08/23 01:28 Dose: 125 mg Documented By: [facility] Coding Level of Care Code 54903 IN/OBS CONSULT LVL 4,60M Diagnoses Major depressive disorder, recurrent, in remission, unspecified F33.40
[2023-12-15 19:09] LABS: BUN Creatinine Ratio 22.6 (10-20); Calcium 8.2 mg/dl (8.6-10.3); Creatinine Clr Calc Pharmacy 23.4 ml/min; Potassium 3.6 mmol/L (3.5-5.1)
[2023-12-16 07:44] LABS: BUN Creatinine Ratio 24.1 (10-20); Calcium 8.3 mg/dl (8.6-10.3); Potassium 3.6 mmol/L (3.5-5.1)
[2023-12-16 07:52] LABS: Hematocrit (blood only) 21.9 % (37.0-47.0); Hemoglobin 6.7 g/dl (12.0-16.0); Mean Corpuscular Hemoglobin 26.1 pg (25.0-34.0); Mean Corpuscular Hgb Conc 30.6 g/dL (32.0-36.0); Mean Corpuscular Volume 85.2 fL (80.0-100.0); Mean Platelet Volume 10.6 fL (9.4-12.4); Platelet Count 404 K/uL (130-400); RDW Coefficient of Variation 15.9 % (11.5-14.5); RDW Standard Deviation 48.9 fL (36.4-46.3); Red Blood Count 2.57 M/uL (4.20-5.40); White Blood Count 12.37 K/ul (4.8-10.8)
[2023-12-16 07:53] LABS: Basophils # (auto) 0.03 K/uL (0.00-0.20); Basophils % (auto) 0.2 %; Eosinophils # (auto) 0.22 K/uL (0.00-0.50); Eosinophils % (auto) 1.8 %; Immature Granulocytes # (auto) 0.49 K/uL (0.01-0.20); Lymphocytes # (auto) 2.21 K/uL (1.20-3.40); Lymphocytes % (auto) 17.9 %; Monocytes # (auto) 0.94 K/uL (0.11-0.59); Monocytes % (auto) 7.6 %; Neutrophils # (auto) 8.48 K/uL (1.40-6.50); Neutrophils % (auto) 68.5 %; Rouleaux 1+
[2023-12-16] MEDS ORDERED: SODIUM CHLORIDE 0.9% 250 ML IV PRN (07:58)
--- NOTE | 2023-12-16 09:49 | Hospitalist Progress Note ---
Date of Service December 16, 2023 Assessment & Plan (1) Cellulitis: (2) Acute kidney injury superimposed on chronic kidney disease: (3) Uncontrolled diabetes mellitus with hyperglycemia, with long-term current use of insulin: (4) C. difficile colitis: (5) Pressure ulcer: (6) Diabetic ulcer of right heel: (7) Anemia: (8) (HFpEF) heart failure with preserved ejection fraction: (9) History of osteomyelitis: (10) UTI (urinary tract infection): Plan # Anemia - Chronic disease - Hgb 6.7 in am labs - Dizziness from this morning could be related to current anemia - Will transfuse 2 units of PRBC - Post-transfusion HH ordered - Monitor fluid status - Monitor am CBC # Weakness/Ambulatory dysfunction - Patient from [facility] due to need for rehab established after last admission - PT ordered during current admission due to persistent weakness - CM following for coordination of discharge to rehab facility - Referrals sent #MDD - Patient w/ hx of depression for which she was on Amitriptyline 100 mg - Hx of SI during this admission which is thought to be related to pain; pain now better controlled - Will add Hydroxyzine for acute anxiety - Continue to monitor changes in mood # Cellulitis - Right medial thigh is erythematous with significant induration and eschar; s/p debridement on 12/12/23 - MRI incomplete but no abscess or OM in right thigh - MRSA swab: negative - Wound vac in place over wound in right thigh; meant to be changed tomorrow (3 days since initiation) - Continue Rocephin # (R) Thigh pain - Patient with pain in her right thigh over where her wound/cellulitis is - Improved today - Will continue with PT and pain control until CM able to find inpatient rehab center. - Continue pain management w/ Oxycodone, Dilaudid, and Acetaminophen. # Acute kidney injury superimposed on chronic kidney disease: - Cr above baseline (baseline Cr ~ 1.9), which may be due to poor PO intake and hydration - Cr in am labs was 2.70 - Avoid nephrotoxic agents - Hold lisinopril - Possible anemia may be affecting kidney function. PRBC today as above. - Monitor am BMP # Diabetes mellitus with hyperglycemia, with long-term current use of insulin: - Last A1c at 7.2% on 12/08/2023 (given chronic illnesses and age, this value is within goal of 7.5-8%) - Continue Lantus and SSI - No hypoglycemic episodes reported # C. difficile colitis: - Contact isolation precautions - Vancomycin p.o. QID - No recurrence of diarrhea or abdominal pain - Complete Vancomycin course (12/20/23) # Pressure ulcer: - Wound care nurse following - Daily wound care # Diabetic ulcer of right heel: - Wound culture on 07/28/2023 grew Pseudomonas - Wound culture on 01/04/2023 grew MSSA susceptible to daptomycin - Daily wound care # (HFpEF) heart failure with preserved ejection fraction: - Last echocardiogram on 03/19/2023 revealed LVH of 65-70% - Daily weights - Strict I&O monitoring - Hold Bumex in the setting of PERLITA # History of osteomyelitis: - A/P CT revealed erosive changes of L4 - L-spine MRI w/ erosion in L4 and L5 which could be consistent with degenerative changes and no obvious OM found Plan Disposition: Discharge to inpatient rehab. CM sent referrals. Pending availability. DNR/DNI Heart healthy, T2DM diet VTE PPx: Heparin 5000u SQ q12h Admission and Anticipated Discharge Date Admission Date: December 07, 2023 Supervising Physician Co-Signing Physician Notes ATTESTATION I also saw the patient and confirmed parson portions of the history and exam. I agree with the impression and plan in the resident documentation, and as summarized below. A little more teary this morning - "too much going on." Reassurance provided. EXAM 135/83, 82, 18, 37.2, 96% room air CV regular Respirations non labored DATA Labs WBC 12.37, HgB 6.7, plt 404 Sodium 129, BUN 65, Cr 2.7 IMPRESSION & PLAN Anemia Agree with transfusion given today's HgB, symptoms, and co-morbidities Ambulatory dysfunction & deconditioning PT/OT consult appreciated CM working for options and disposition Cellulitis of the right thigh s/p debridement Sacral wound, present on admission - s/p debridement Variable pain control; better yesterday, a little worse today Continue ceftriaxone C. difficle colitis Continue vancomycin PERLITA Still holding lisinopril and bumetanide Additional per resident documentation Subjective Patietn evaluated at bedside and found to be AAOx3, comfortable, afebrile, and in NAD. Endorses some dizziness ealier this morning. Denies fevers, chills, chest pain, SOB, palpitations, N/V/D, or any other symptom. Review of Systems Review of Systems: reviewed, per HPI Physical Exam Physical Exam: Constitutional: AAOx3, afebrile, NAD HEENT: NCAT, no conjunctival injection Resp: good air entry bilaterally, no crackles, normal respiratory effort, breathing at room air GI: non distended MSK: no gross deformities appreciated Extremities: no swelling or calf tenderness in b/l LE Skin: wound on medial thigh covered with wound vac Results & Data Results & Data Vital Signs (Past 12 Hours) Vital Signs Temp Pulse Pulse Resp BP BP Pulse Ox 12/16/23 07:37 37.1 C 66 18 145/60 H 95 12/16/23 03:54 37.2 C 76 16 119/55 L 97 12/16/23 00:04 36.8 C 77 16 142/54 H 94 12/15/23 22:52 72 O2 Del Method 12/16/23 07:37 Room Air 12/16/23 03:54 Room Air 12/16/23 00:04 Room Air 12/15/23 22:52 Resident Activity Tracking Resident Involvement: Resident Care Provided Care Provided: Adult Hospital Medicine (5) Pressure ulcer Pressure injury location: sacral region (6) Diabetic ulcer of right heel Diabetes mellitus type: type 2 Non-pressure ulcer stage: with fat layer exposed Qualified Code(s): E11.621 - Type 2 diabetes mellitus with foot ulcer; L97.412 - Non-pressure chronic ulcer of right heel and midfoot with fat layer exposed (7) Anemia Anemia type: due to chronic kidney disease Chronic kidney disease stage: stage 4 (severe) Qualified Code(s): N18.4 - Chronic kidney disease, stage 4 (severe); D63.1 - Anemia in chronic kidney disease
[2023-12-16 21:17] LABS: Hematocrit (blood only) 26.5 % (37.0-47.0); Hemoglobin 8.6 g/dl (12.0-16.0)
[2023-12-17 07:03] LABS: Basophils # (auto) 0.06 K/uL (0.00-0.20); Basophils % (auto) 0.5 %; Eosinophils # (auto) 0.26 K/uL (0.00-0.50); Hematocrit (blood only) 24.9 % (37.0-47.0); Hemoglobin 8.2 g/dl (12.0-16.0); Immature Granulocytes # (auto) 0.46 K/uL (0.01-0.20); Immature Granulocytes % (auto) 3.5 %; Lymphocytes # (auto) 1.79 K/uL (1.20-3.40); Lymphocytes % (auto) 13.7 %; Mean Corpuscular Hemoglobin 26.8 pg (25.0-34.0); Mean Corpuscular Hgb Conc 32.9 g/dL (32.0-36.0); Mean Corpuscular Volume 81.4 fL (80.0-100.0); Mean Platelet Volume 10.2 fL (9.4-12.4); Monocytes # (auto) 1.05 K/uL (0.11-0.59); Neutrophils # (auto) 9.49 K/uL (1.40-6.50); Neutrophils % (auto) 72.3 %; Platelet Count 383 K/uL (130-400); RDW Coefficient of Variation 16.3 % (11.5-14.5); RDW Standard Deviation 48.3 fL (36.4-46.3); Red Blood Count 3.06 M/uL (4.20-5.40); White Blood Count 13.11 K/ul (4.8-10.8)
[2023-12-17 07:22] LABS: BUN Creatinine Ratio 25.1 (10-20); Calcium 8.5 mg/dl (8.6-10.3); Creatinine Clr Calc Pharmacy 26.5 ml/min; Potassium 3.7 mmol/L (3.5-5.1)
--- NOTE | 2023-12-17 09:22 | Hospitalist Progress Note ---
Date of Service December 17, 2023 Assessment & Plan (1) Cellulitis: (2) Acute kidney injury superimposed on chronic kidney disease: (3) Uncontrolled diabetes mellitus with hyperglycemia, with long-term current use of insulin: (4) C. difficile colitis: (5) Pressure ulcer: (6) Diabetic ulcer of right heel: (7) Anemia: (8) (HFpEF) heart failure with preserved ejection fraction: (9) History of osteomyelitis: (10) UTI (urinary tract infection): Plan # Anemia - Chronic disease - Hgb 6.7 in am labs - Hgb improved to ~8 after 2 units PRBC - Monitor am CBC # Weakness/Ambulatory dysfunction - Patient from [facility] due to need for rehab established after last admission - PT ordered during current admission due to persistent weakness - CM following for coordination of discharge to rehab facility - Referrals sent #MDD - Patient w/ hx of depression for which she was on Amitriptyline 100 mg - Hx of SI during this admission which is thought to be related to pain; pain now better controlled - Will add Hydroxyzine for acute anxiety - Continue to monitor changes in mood # Cellulitis - Right medial thigh is erythematous with significant induration and eschar; s/p debridement on 12/12/23 - MRI incomplete but no abscess or OM in right thigh - MRSA swab: negative - Wound vac in place over wound in right thigh; meant to be changed today (3 days since initiation) - Continue Rocephin; goal for total of 10-14 dys of therapy. # (R) Thigh pain - Patient with pain in her right thigh over where her wound/cellulitis is - Improved today - Will continue with PT and pain control until CM able to find inpatient rehab center. - Continue pain management w/ Oxycodone, Dilaudid, and Acetaminophen. # Acute kidney injury superimposed on chronic kidney disease: - Cr above baseline (baseline Cr ~ 1.9), which may be due to poor PO intake and hydration plus anemia - Cr in am labs was slightly improved to 2.55 after PRB transfusion - Avoid nephrotoxic agents - Hold lisinopril - Monitor am BMP # Diabetes mellitus with hyperglycemia, with long-term current use of insulin: - Last A1c at 7.2% on 12/08/2023 (given chronic illnesses and age, this value is within goal of 7.5-8%) - Continue Lantus and SSI - No hypoglycemic episodes reported # C. difficile colitis: - Contact isolation precautions - Vancomycin p.o. QID - No recurrence of diarrhea or abdominal pain - Complete Vancomycin course (12/20/23) # Pressure ulcer: - Wound care nurse following - Daily wound care # Diabetic ulcer of right heel: - Wound culture on 07/28/2023 grew Pseudomonas - Wound culture on 01/04/2023 grew MSSA susceptible to daptomycin - Daily wound care # (HFpEF) heart failure with preserved ejection fraction: - Last echocardiogram on 03/19/2023 revealed LVH of 65-70% - Daily weights - Strict I&O monitoring - Hold Bumex in the setting of PERLITA # History of osteomyelitis: - A/P CT revealed erosive changes of L4 - L-spine MRI w/ erosion in L4 and L5 which could be consistent with degenerative changes and no obvious OM found Plan Disposition: Discharge to inpatient rehab. CM sent referrals. Pending availability. DNR/DNI Heart healthy, T2DM diet VTE PPx: Heparin 5000u SQ q12h Admission and Anticipated Discharge Date Admission Date: December 07, 2023 Supervising Physician Co-Signing Physician Notes I personally examined the patient and verified all parson points of history and exam, discussed case, and agree with decision making with Dr Hunter feels like she is reaching a turning point for the better. Discussed disposition options. Vitals noted, in general she is awake and alert pleasant no distress. HEENT normocephalic atraumatic mucous membranes moist. Breathing unlabored no accessory muscle use good effort. Skin without rashes pallor or icterus. IMPRESSION & PLAN Anemia Has been transfused 3 units throughout hospital stay Ambulatory dysfunction & deconditioning PT/OT consult appreciated CM working for options and disposition, discussed options with patient Cellulitis of the right thigh s/p debridement Sacral wound, present on admission - s/p debridement feels like she is starting to turn the corner for the better, continue current care C. difficle colitis Continue vancomycin PERLITA Still holding lisinopril and bumetanide DVT prophylaxisheparin subcu Additional per resident documentation Subjective Patient evaluated at bedside and found to be AAOx3, comfortable, afebrile, and in NAD. Improved dizziness. Pain in right thigh is persistent but improved. No fevers or chills, no chest pain or SOB. No other systemic symptoms. Review of Systems Review of Systems: reviewed, per HPI Physical Exam Physical Exam: Constitutional: AAOx3, afebrile, NAD HEENT: NCAT, no conjunctival injection Resp: good air entry bilaterally, no crackles, normal respiratory effort, breathing at room air GI: non distended MSK: no gross deformities appreciated Extremities: no swelling or calf tenderness in b/l LE Skin: wound on medial thigh covered with wound vac but surrounding erythema seems to be stable versus slightly improved Results & Data Results & Data Vital Signs (Past 12 Hours) Vital Signs Temp Pulse Pulse Resp BP BP Pulse Ox 12/17/23 07:42 36.8 C 63 17 139/75 97 12/17/23 07:24 63 12/17/23 04:36 36.7 C 68 16 132/73 97 12/16/23 23:00 68 12/16/23 22:25 36.8 C 69 18 154/66 H 96 O2 Del Method 12/17/23 07:42 Room Air 12/17/23 07:24 12/17/23 04:36 Room Air 12/16/23 23:00 12/16/23 22:25 Room Air Resident Activity Tracking Resident Involvement: Resident Care Provided Care Provided: Adult Hospital Medicine (5) Pressure ulcer Pressure injury location: sacral region (6) Diabetic ulcer of right heel Diabetes mellitus type: type 2 Non-pressure ulcer stage: with fat layer exposed Qualified Code(s): E11.621 - Type 2 diabetes mellitus with foot ulcer; L97.412 - Non-pressure chronic ulcer of right heel and midfoot with fat layer exposed (7) Anemia Anemia type: due to chronic kidney disease Chronic kidney disease stage: stage 4 (severe) Qualified Code(s): N18.4 - Chronic kidney disease, stage 4 (severe); D63.1 - Anemia in chronic kidney disease
[2023-12-17] MEDS: HYDROmorphone INJ 0.5 MG/0.5 ML SYR IV PRN (09:40)
--- NOTE | 2023-12-17 19:30 | Billing Data ---
Date of Service December 17, 2023 Coding Level of Care Code 11828 SUB INP/OBS CARE
[2023-12-18 07:38] LABS: Basophils # (auto) 0.05 K/uL (0.00-0.20); Basophils % (auto) 0.4 %; Eosinophils # (auto) 0.25 K/uL (0.00-0.50); Eosinophils % (auto) 1.9 %; Hemoglobin 8.3 g/dl (12.0-16.0); Immature Granulocytes # (auto) 0.49 K/uL (0.01-0.20); Immature Granulocytes % (auto) 3.8 %; Lymphocytes # (auto) 2.06 K/uL (1.20-3.40); Mean Corpuscular Hemoglobin 26.4 pg (25.0-34.0); Mean Corpuscular Hgb Conc 31.9 g/dL (32.0-36.0); Mean Corpuscular Volume 82.8 fL (80.0-100.0); Mean Platelet Volume 10.5 fL (9.4-12.4); Monocytes # (auto) 0.83 K/uL (0.11-0.59); Monocytes % (auto) 6.4 %; Neutrophils # (auto) 9.21 K/uL (1.40-6.50); Neutrophils % (auto) 71.5 %; Platelet Count 393 K/uL (130-400); RDW Coefficient of Variation 16.5 % (11.5-14.5); RDW Standard Deviation 49.2 fL (36.4-46.3); Red Blood Count 3.14 M/uL (4.20-5.40); White Blood Count 12.89 K/ul (4.8-10.8)
[2023-12-18 07:40] LABS: BUN Creatinine Ratio 25.2 (10-20); Calcium 8.5 mg/dl (8.6-10.3); Creatinine Clr Calc Pharmacy 26.1 ml/min; Potassium 3.8 mmol/L (3.5-5.1)
[2023-12-18] MEDS: hydrOXYzine HCl 10 MG TAB PO PRN (08:19)
--- NOTE | 2023-12-18 09:22 | Hospitalist Progress Note ---
Date of Service December 18, 2023 Assessment & Plan (1) Cellulitis: (2) Acute kidney injury superimposed on chronic kidney disease: (3) Uncontrolled diabetes mellitus with hyperglycemia, with long-term current use of insulin: (4) C. difficile colitis: (5) Pressure ulcer: (6) Diabetic ulcer of right heel: (7) Anemia: (8) (HFpEF) heart failure with preserved ejection fraction: (9) History of osteomyelitis: (10) UTI (urinary tract infection): Plan # Weakness/Ambulatory dysfunction - Patient from [facility] due to need for rehab established after last admission - PT ordered during current admission due to persistent weakness - CM following for coordination of discharge to rehab facility - Referrals sent # Anemia - Chronic disease - Hgb stable ~ 8 - Monitor am CBC #MDD - Patient w/ hx of depression for which she was on Amitriptyline 100 mg - Will add Hydroxyzine for acute anxiety - Continue to monitor changes in mood and maintain adequate pain control since this is playing a big role over her mood # Cellulitis - Right medial thigh is erythematous with significant induration and eschar; s/p debridement on 12/12/23 - MRI incomplete but no abscess or OM in right thigh - Wound vac in place over wound in right thigh - Continue Rocephin; goal for total of 10-14 dys of therapy. # (R) Thigh pain - Patient with pain in her right thigh over where her wound/cellulitis is - Improved today - Will continue with PT and pain control until CM able to find inpatient rehab center. - Continue pain management w/ Oxycodone, Dilaudid, and Acetaminophen. # Acute kidney injury superimposed on chronic kidney disease: - Cr above baseline (baseline Cr ~ 1.9), which may be due to poor PO intake and hydration plus anemia - Avoid nephrotoxic agents - Hold lisinopril - Monitor am BMP # Diabetes mellitus with hyperglycemia, with long-term current use of insulin: - Last A1c at 7.2% on 12/08/2023 (given chronic illnesses and age, this value is within goal of 7.5-8%) - Continue Lantus and SSI - No hypoglycemic episodes reported # C. difficile colitis: - Contact isolation precautions - Vancomycin p.o. QID - No recurrence of diarrhea or abdominal pain - Complete Vancomycin course (12/20/23) # Pressure ulcer: - Wound care nurse following - Daily wound care # Diabetic ulcer of right heel: - Wound culture on 07/28/2023 grew Pseudomonas - Wound culture on 01/04/2023 grew MSSA susceptible to daptomycin - Daily wound care # (HFpEF) heart failure with preserved ejection fraction: - Last echocardiogram on 03/19/2023 revealed LVH of 65-70% - Daily weights - Strict I&O monitoring - Hold Bumex in the setting of PERLITA # History of osteomyelitis: - A/P CT revealed erosive changes of L4 - L-spine MRI w/ erosion in L4 and L5 which could be consistent with degenerative changes and no obvious OM found Plan Disposition: Discharge to inpatient rehab. CM sent referrals. Pending availability. DNR/DNI Heart healthy, T2DM diet VTE PPx: Heparin 5000u SQ q12h Admission and Anticipated Discharge Date Admission Date: December 07, 2023 Supervising Physician Co-Signing Physician Notes I personally examined the patient and verified all parson points of history and exam, discussed case, and agree with decision making with Dr Hunter worried about SNF. Vitals noted, in general she is awake and alert pleasant no distress. HEENT normocephalic atraumatic mucous membranes moist. Breathing unlabored no accessory muscle use good effort. Skin without rashes pallor or icterus. IMPRESSION & PLAN Anemia Has been transfused 3 units throughout hospital stay Ambulatory dysfunction & deconditioning PT/OT consult appreciated CM working for options and disposition, discussed options with patient, discussed critical need for rehab Cellulitis of the right thigh s/p debridement Sacral wound, present on admission - s/p debridement stage 3 sacral decubitus POA feels like she is starting to turn the corner for the better, continue current care, continue wound care C. difficle colitis Continue vancomycin PERLITA, hyponatremia Still holding lisinopril and bumetanide encourage PO intake DVT prophylaxisheparin subcu Additional per resident documentation Subjective Patient evaluated at bedside and found to be AAOx3 and in NAD. She refers having some mild pain in her right thigh that is not worse from previous days. No fevers, chills, N/V/D, or any other sxs. Review of Systems Review of Systems: reviewed, per HPI Physical Exam Physical Exam: Constitutional: AAOx3, afebrile, NAD HEENT: NCAT, no conjunctival injection Resp: good air entry bilaterally, no crackles, normal respiratory effort, breathing at room air GI: non distended MSK: no gross deformities appreciated Extremities: no swelling or calf tenderness in b/l LE Skin: wound on medial thigh covered with wound vac but surrounding erythema seems to be improving Results & Data Results & Data Vital Signs (Past 12 Hours) Vital Signs Temp Pulse Resp BP BP Pulse Ox O2 Del Method 12/18/23 07:21 36.9 C 68 18 168/77 H 100 Nasal Cannula 12/18/23 02:14 36.9 C 68 18 150/72 H 98 Nasal Cannula 12/17/23 23:42 Room Air 12/17/23 23:16 36.9 C 64 16 137/64 97 Room Air O2 Flow Rate 12/18/23 07:21 2 12/18/23 02:14 2 12/17/23 23:42 12/17/23 23:16 Resident Activity Tracking Resident Involvement: Resident Care Provided Care Provided: Adult Hospital Medicine (5) Pressure ulcer Pressure injury location: sacral region (6) Diabetic ulcer of right heel Diabetes mellitus type: type 2 Non-pressure ulcer stage: with fat layer exposed Qualified Code(s): E11.621 - Type 2 diabetes mellitus with foot ulcer; L97.412 - Non-pressure chronic ulcer of right heel and midfoot with fat layer exposed (7) Anemia Anemia type: due to chronic kidney disease Chronic kidney disease stage: stage 4 (severe) Qualified Code(s): N18.4 - Chronic kidney disease, stage 4 (severe); D63.1 - Anemia in chronic kidney disease
--- NOTE | 2023-12-18 17:25 | Billing Data ---
Date of Service December 18, 2023 Coding Level of Care Code 71076 SUB INP/OBS CARE
--- NOTE | 2023-12-18 17:25 | Billing Data ---
Date of Service December 18, 2023 Coding Level of Care Code 74458 SUB INP/OBS CARE
[2023-12-19 09:31] LABS: BUN Creatinine Ratio 26.2 (10-20); Calcium 8.9 mg/dl (8.6-10.3); Potassium 4.2 mmol/L (3.5-5.1)
--- NOTE | 2023-12-19 11:18 | Hospitalist Progress Note ---
Date of Service December 19, 2023 Assessment & Plan (1) Cellulitis: (2) Acute kidney injury superimposed on chronic kidney disease: (3) Uncontrolled diabetes mellitus with hyperglycemia, with long-term current use of insulin: (4) C. difficile colitis: (5) Pressure ulcer: (6) Diabetic ulcer of right heel: (7) Anemia: (8) (HFpEF) heart failure with preserved ejection fraction: (9) History of osteomyelitis: (10) UTI (urinary tract infection): Plan # Weakness/Ambulatory dysfunction - Patient from [facility] due to need for rehab established after last admission - PT ordered during current admission due to persistent weakness - CM following for coordination of discharge to rehab facility. - Now seems more open to returning to [facility] but to a different unit. - Referrals sent # Anemia - Chronic disease - Hgb stable ~ 8 - Asymptomatic - Monitor am CBC #MDD - Patient w/ hx of depression for which she was on Amitriptyline 100 mg - Will add Hydroxyzine for acute anxiety - Continue to monitor changes in mood and maintain adequate pain control since this is playing a big role over her mood # Cellulitis - Right medial thigh is erythematous with significant induration and eschar; s/p debridement on 12/12/23 - MRI incomplete but no abscess or OM in right thigh - Wound vac in place over wound in right thigh - Continue Rocephin; goal for total of 10-14 dysa of therapy. # (R) Thigh pain - Patient with pain in her right thigh over where her wound/cellulitis is - Improved today - Will continue with PT and pain control until CM able to find inpatient rehab center. - Continue pain management w/ Oxycodone, Dilaudid, and Acetaminophen. # Acute kidney injury superimposed on chronic kidney disease: - Cr above baseline (baseline Cr ~ 1.9), which may be due to poor PO intake - Avoid nephrotoxic agents - Hold lisinopril - Monitor am BMP # Diabetes mellitus with hyperglycemia, with long-term current use of insulin: - Last A1c at 7.2% on 12/08/2023 (given chronic illnesses and age, this value is within goal of 7.5-8%) - Continue Lantus and SSI - No hypoglycemic episodes reported # C. difficile colitis: - Contact isolation precautions - Vancomycin p.o. QID - No recurrence of diarrhea or abdominal pain - Complete Vancomycin course (12/20/23) # Pressure ulcer: - Wound care nurse following - Daily wound care # Diabetic ulcer of right heel: - Wound culture on 07/28/2023 grew Pseudomonas - Wound culture on 01/04/2023 grew MSSA susceptible to daptomycin - Daily wound care # (HFpEF) heart failure with preserved ejection fraction: - Last echocardiogram on 03/19/2023 revealed LVH of 65-70% - Daily weights - Strict I&O monitoring - Hold Bumex in the setting of PERLITA # History of osteomyelitis: - A/P CT revealed erosive changes of L4 - L-spine MRI w/ erosion in L4 and L5 which could be consistent with degenerative changes and no obvious OM found Plan Disposition: Discharge to inpatient rehab. CM sent referrals. Pending avai lability. DNR/DNI Heart healthy, T2DM diet VTE PPx: Heparin 5000u SQ q12h Admission and Anticipated Discharge Date Admission Date: December 07, 2023 Supervising Physician Co-Signing Physician Notes I personally examined the patient and verified all parson points of history and exam, discussed case, and agree with decision making with Dr Hunter still waiting on SNF. Vitals noted, in general she is awake and alert pleasant no distress. HEENT normocephalic atraumatic mucous membranes moist. Breathing unlabored no accessory muscle use good effort. Skin without rashes pallor or icterus. IMPRESSION & PLAN Anemia Has been transfused 3 units throughout hospital stay Ambulatory dysfunction & deconditioning PT/OT consult appreciated CM working for options and disposition, discussed options with patient, discussed critical need for rehab, encouraged better participation with PT/OT while here Cellulitis of the right thigh s/p debridement Sacral wound, present on admission - s/p debridement stage 3 sacral decubitus POA feels like she is starting to turn the corner for the better, continue current care, continue wound care C. difficle colitis Continue vancomycin PERLITA, hyponatremia Still holding lisinopril and bumetanide encourage PO intake DVT prophylaxisheparin subcu Additional per resident documentation Subjective Patient evaluated at bedside and found to be AAOx3 and in NAD. Currently feels p ain in right thigh. Thinks she hasn't had pain medications since last night. No new symptoms or overnight events. Review of Systems Review of Systems: reviewed, per HPI Physical Exam Physical Exam: Constitutional: AAOx3, afebrile, NAD HEENT: NCAT, no conjunctival injection Resp: good air entry bilaterally, no crackles, normal respiratory effort, breathing at room air GI: non distended MSK: no gross deformities appreciated Extremities: no swelling or calf tenderness in b/l LE Skin: wound on medial thigh covered with wound vac but surrounding erythema seems to be improving Results & Data Results & Data Vital Signs (Past 12 Hours) Vital Signs Temp Pulse Resp BP Pulse Ox O2 Del Method 12/19/23 07:43 36.4 C L 61 18 145/67 H 98 Room Air 12/19/23 07:35 Room Air Resident Activity Tracking Resident Involvement: Resident Care Provided Care Provided: Adult Hospital Medicine (5) Pressure ulcer Pressure injury location: sacral region (6) Diabetic ulcer of right heel Diabetes mellitus type: type 2 Non-pressure ulcer stage: with fat layer exposed Qualified Code(s): E11.621 - Type 2 diabetes mellitus with foot ulcer; L97.412 - Non-pressure chronic ulcer of right heel and midfoot with fat layer exposed (7) Anemia Anemia type: due to chronic kidney disease Chronic kidney disease stage: stage 4 (severe) Qualified Code(s): N18.4 - Chronic kidney disease, stage 4 (severe); D63.1 - Anemia in chronic kidney disease
[2023-12-19] MEDS: oxyCODONE HCL IR 5 MG TAB (IMMEDIATE RELEASE) PO PRN (12:03)
--- NOTE | 2023-12-19 19:27 | Billing Data ---
Date of Service December 19, 2023 Coding Level of Care Code 31339 SUB INP/OBS CARE
[2023-12-20 07:59] LABS: Hematocrit (blood only) 26.7 % (37.0-47.0); Hemoglobin 8.3 g/dl (12.0-16.0); Mean Corpuscular Hemoglobin 26.3 pg (25.0-34.0); Mean Corpuscular Hgb Conc 31.1 g/dL (32.0-36.0); Mean Corpuscular Volume 84.5 fL (80.0-100.0); Mean Platelet Volume 10.3 fL (9.4-12.4); Platelet Count 436 K/uL (130-400); RDW Coefficient of Variation 16.6 % (11.5-14.5); RDW Standard Deviation 50.6 fL (36.4-46.3); Red Blood Count 3.16 M/uL (4.20-5.40)
[2023-12-20 08:14] LABS: BUN Creatinine Ratio 27.9 (10-20); Calcium 8.5 mg/dl (8.6-10.3); Creatinine Clr Calc Pharmacy 29.3 ml/min; Potassium 4.2 mmol/L (3.5-5.1)
--- NOTE | 2023-12-20 10:31 | Hospitalist Progress Note ---
Date of Service December 20, 2023 Assessment & Plan (1) Cellulitis: (2) Acute kidney injury superimposed on chronic kidney disease: (3) Uncontrolled diabetes mellitus with hyperglycemia, with long-term current use of insulin: (4) C. difficile colitis: (5) Pressure ulcer: (6) Diabetic ulcer of right heel: (7) Anemia: (8) (HFpEF) heart failure with preserved ejection fraction: (9) History of osteomyelitis: (10) UTI (urinary tract infection): Plan # Weakness/Ambulatory dysfunction - Patient from [facility] due to need for rehab established after last admission - PT ordered during current admission due to persistent weakness - CM following for coordination of discharge to rehab facility. - Now seems more open to returning to [facility] but to a different unit. - Referrals sent # Anemia - Chronic disease - Hgb stable ~ 8 - Asymptomatic - Monitor am CBC #MDD - Patient w/ hx of depression for which she was on Amitriptyline 100 mg - Hydroxyzine for acute anxiety - Continue to monitor changes in mood and maintain adequate pain control since this is playing a big role over her mood # Cellulitis - Right medial thigh is erythematous with significant induration and eschar; s/p debridement on 12/12/23 - MRI incomplete but no abscess or OM in right thigh - Wound vac in place over wound in right thigh - Continue Rocephin; goal for total of 10-14 days of therapy. # (R) Thigh pain - Patient with pain in her right thigh over where her wound/cellulitis is - Improved today - Will continue with PT and pain control until CM able to find inpatient rehab center. - Continue pain management w/ Oxycodone, Dilaudid, and Acetaminophen. # Acute kidney injury superimposed on chronic kidney disease: - Cr above baseline (baseline Cr ~ 1.9), which may be due to poor PO intake - Avoid nephrotoxic agents - Hold lisinopril - Monitor am BMP # Diabetes mellitus with hyperglycemia, with long-term current use of insulin: - Last A1c at 7.2% on 12/08/2023 (given chronic illnesses and age, this value is within goal of 7.5-8%) - Continue Lantus and SSI - No hypoglycemic episodes reported # C. difficile colitis: - Contact isolation precautions - Vancomycin p.o. QID - No recurrence of diarrhea or abdominal pain - Complete Vancomycin course today # Pressure ulcer: - Wound care nurse following - Daily wound care # Diabetic ulcer of right heel: - Wound culture on 07/28/2023 grew Pseudomonas - Wound culture on 01/04/2023 grew MSSA susceptible to daptomycin - Daily wound care # (HFpEF) heart failure with preserved ejection fraction: - Last echocardiogram on 03/19/2023 revealed LVH of 65-70% - Daily weights - Strict I&O monitoring - Hold Bumex in the setting of PERLITA # History of osteomyelitis: - A/P CT revealed erosive changes of L4 - L-spine MRI w/ erosion in L4 and L5 which could be consistent with degenerative changes and no obvious OM found Plan Disposition: Discharge to inpatient rehab. CM sent referrals. Pending availability. DNR/DNI Heart healthy, T2DM diet VTE PPx: Heparin 5000u SQ q12h Admission and Anticipated Discharge Date Admission Date: December 07, 2023 Supervising Physician Co-Signing Physician Notes I personally examined the patient and verified all parson points of history and exam, discussed case, and agree with decision making with Dr Hunter ongoing wait for SNF bed. reiterated the need to work as hard as she can with PT/OT. Vitals noted, in general she is awake and alert pleasant no distress. HEENT normocephalic atraumatic mucous membranes moist. Breathing unlabored no accessory muscle use good effort. Skin without rashes pallor or icterus. IMPRESSION & PLAN Anemia Has been transfused 3 units throughout hospital stay Ambulatory dysfunction & deconditioning PT/OT consult appreciated CM working for options and disposition, discussed options with patient, discussed critical need for rehab, again encouraged better participation with PT/OT while here Cellulitis of the right thigh s/p debridement Sacral wound, present on admission - s/p debridement stage 3 sacral decubitus POA continue current care, continue wound care C. difficle colitis Continue vancomycin PERLITA, hyponatremia Still holding lisinopril and bumetanide encourage PO intake DVT prophylaxisheparin subcu Additional per resident documentation Subjective Pain well controlled. Is knitting to help with anxiety. No overnight events. No new symptoms. Review of Systems Review of Systems: reviewed, per HPI Physical Exam Physical Exam: Constitutional: AAOx3, afebrile, NAD HEENT: NCAT, no conjunctival injection Resp: good air entry bilaterally, no crackles, normal respiratory effort, breathing at room air GI: non distended MSK: no gross deformities appreciated Extremities: no swelling or calf tenderness in b/l LE Results & Data Results & Data Vital Signs (Past 12 Hours) Vital Signs Temp Pulse Resp BP Pulse Ox O2 Del Method 12/20/23 09:00 Room Air 12/20/23 07:23 36.8 C 61 17 138/69 97 Room Air Resident Activity Tracking Resident Involvement: Resident Care Provided Care Provided: Adult Hospital Medicine (5) Pressure ulcer Pressure injury location: sacral region (6) Diabetic ulcer of right heel Diabetes mellitus type: type 2 Non-pressure ulcer stage: with fat layer exposed Qualified Code(s): E11.621 - Type 2 diabetes mellitus with foot ulcer; L97.412 - Non-pressure chronic ulcer of right heel and midfoot with fat layer exposed (7) Anemia Anemia type: due to chronic kidney disease Chronic kidney disease stage: stage 4 (severe) Qualified Code(s): N18.4 - Chronic kidney disease, stage 4 (severe); D63.1 - Anemia in chronic kidney disease
--- NOTE | 2023-12-20 18:19 | Billing Data ---
Date of Service December 20, 2023 Coding Level of Care Code 59821 SUB INP/OBS CARE
[2023-12-21 08:07] LABS: Hematocrit (blood only) 25.1 % (37.0-47.0); Hemoglobin 7.8 g/dl (12.0-16.0); Mean Corpuscular Hemoglobin 26.4 pg (25.0-34.0); Mean Corpuscular Hgb Conc 31.1 g/dL (32.0-36.0); Mean Corpuscular Volume 85.1 fL (80.0-100.0); Mean Platelet Volume 10.3 fL (9.4-12.4); Platelet Count 404 K/uL (130-400); RDW Coefficient of Variation 16.7 % (11.5-14.5); RDW Standard Deviation 51.2 fL (36.4-46.3); Red Blood Count 2.95 M/uL (4.20-5.40)
[2023-12-21 08:23] LABS: BUN Creatinine Ratio 27.4 (10-20); Calcium 8.4 mg/dl (8.6-10.3); Creatinine Clr Calc Pharmacy 28.5 ml/min; Potassium 4.3 mmol/L (3.5-5.1)
--- NOTE | 2023-12-21 13:15 | Hospitalist Progress Note ---
Date of Service December 21, 2023 Assessment & Plan (1) Cellulitis: (2) Acute kidney injury superimposed on chronic kidney disease: (3) Uncontrolled diabetes mellitus with hyperglycemia, with long-term current use of insulin: (4) C. difficile colitis: (5) Pressure ulcer: (6) Diabetic ulcer of right heel: (7) Anemia: (8) (HFpEF) heart failure with preserved ejection fraction: (9) History of osteomyelitis: (10) UTI (urinary tract infection): Plan # Weakness/Ambulatory dysfunction - Patient from [facility] due to need for rehab established after last admission - PT ordered during current admission due to persistent weakness - CM following for coordination of discharge to rehab facility. # Anemia - Chronic disease - Hgb at 7.8 in am labs - Asymptomatic - Monitor am CBC #MDD - Patient w/ hx of depression for which she was on Amitriptyline 100 mg - Hydroxyzine for acute anxiety - Continue to monitor changes in mood and maintain adequate pain control since this is playing a big role over her mood # Cellulitis - Right medial thigh is erythematous with significant induration and eschar; s/p debridement on 12/12/23 - MRI incomplete but no abscess or OM in right thigh - Wound vac in place over wound in right thigh - Completed abx therapy # (R) Thigh pain - Patient with pain in her right thigh over where her wound/cellulitis is - Improved today - Will continue with PT and pain control until CM able to find inpatient rehab center. - Continue pain management w/ Oxycodone, Dilaudid, and Acetaminophen. # Acute kidney injury superimposed on chronic kidney disease: - Cr above baseline (baseline Cr ~ 1.9), which may be due to poor PO intake - Avoid nephrotoxic agents - Hold lisinopril - Monitor am BMP # Diabetes mellitus with hyperglycemia, with long-term current use of insulin: - Last A1c at 7.2% on 12/08/2023 (given chronic illnesses and age, this value is within goal of 7.5-8%) - Continue Lantus and SSI - No hypoglycemic episodes reported # C. difficile colitis: - Contact isolation precautions - No recurrence of diarrhea or abdominal pain - Treated w/ Vancomycin PO # Pressure ulcer: - Wound care nurse following - Daily wound care # Diabetic ulcer of right heel: - Wound culture on 07/28/2023 grew Pseudomonas - Wound culture on 01/04/2023 grew MSSA susceptible to daptomycin - Daily wound care # (HFpEF) heart failure with preserved ejection fraction: - Last echocardiogram on 03/19/2023 revealed LVH of 65-70% - Daily weights - Strict I&O monitoring - Hold Bumex in the setting of PERLITA # History of osteomyelitis: - A/P CT revealed erosive changes of L4 - L-spine MRI w/ erosion in L4 and L5 which could be consistent with degenerative changes and no obvious OM found Plan Disposition: Discharge to inpatient rehab. CM sent referrals. Pending availability. DNR/DNI Heart healthy, T2DM diet VTE PPx: Heparin 5000u SQ q12h Admission and Anticipated Discharge Date Admission Date: December 07, 2023 Supervising Physician Co-Signing Physician Notes I personally examined the patient and verified all parson points of history and exam, discussed case, and agree with decision making with Dr Hunter in pain but just had wound vac changed. nursing getting pain meds. Vitals noted, in general she is awake and alert pleasant no distress. HEENT normocephalic atraumatic mucous membranes moist. Breathing unlabored no accessory muscle use good effort. Skin without rashes pallor or icterus. IMPRESSION & PLAN Anemia Has been transfused 3 units throughout hospital stay Ambulatory dysfunction & deconditioning PT/OT consult appreciated CM working for options and disposition, discussed options with patient, discussed critical need for rehab, have been encouraging better participation with PT/OT while here Cellulitis of the right thigh s/p debridement Sacral wound, present on admission - s/p debridement stage 3 sacral decubitus POA continue current care, continue wound care C. difficle colitis Continue vancomycin PERLITA, hyponatremia Still holding lisinopril and bumetanide encourage PO intake DVT prophylaxisheparin subcu Additional per resident documentation, for SNF once approved Subjective Patient calm at the time of evaluation. No new concerns. No new symptoms. Review of Systems Review of Systems: reviewed, per HPI Physical Exam Physical Exam: Constitutional: AAOx3, afebrile, NAD HEENT: NCAT, no conjunctival injection Resp: good air entry bilaterally, no crackles, normal respiratory effort, breathing at room air GI: non distended MSK: no gross deformities appreciated Extremities: no swelling or calf tenderness in b/l LE Results & Data Results & Data Vital Signs (Past 12 Hours) Vital Signs Temp Pulse Resp BP Pulse Ox O2 Del Method 12/21/23 09:01 Room Air 12/21/23 07:44 36.6 C 60 16 138/70 98 Room Air Resident Activity Tracking Resident Involvement: Resident Care Provided Care Provided: Adult Hospital Medicine (5) Pressure ulcer Pressure injury location: sacral region (6) Diabetic ulcer of right heel Diabetes mellitus type: type 2 Non-pressure ulcer stage: with fat layer exposed Qualified Code(s): E11.621 - Type 2 diabetes mellitus with foot ulcer; L97.412 - Non-pressure chronic ulcer of right heel and midfoot with fat layer exposed (7) Anemia Anemia type: due to chronic kidney disease Chronic kidney disease stage: stage 4 (severe) Qualified Code(s): N18.4 - Chronic kidney disease, stage 4 (severe); D63.1 - Anemia in chronic kidney disease
[2023-12-21] MEDS ORDERED: HYDROmorphone INJ 0.5 MG/0.5 ML SYR IV PRN (16:24)
[2023-12-21] MEDS ORDERED: HYDROmorphone INJ 1 MG/ML SYRINGE IV PRN (16:24)
--- NOTE | 2023-12-21 19:04 | Billing Data ---
Date of Service December 21, 2023 Coding Level of Care Code 19611 SUB INP/OBS CARE
[2023-12-22 06:40] LABS: Hematocrit (blood only) 26.7 % (37.0-47.0); Hemoglobin 8.3 g/dl (12.0-16.0); Mean Corpuscular Hemoglobin 26.5 pg (25.0-34.0); Mean Corpuscular Hgb Conc 31.1 g/dL (32.0-36.0); Mean Corpuscular Volume 85.3 fL (80.0-100.0); Mean Platelet Volume 10.4 fL (9.4-12.4); Platelet Count 460 K/uL (130-400); RDW Coefficient of Variation 16.8 % (11.5-14.5); RDW Standard Deviation 50.9 fL (36.4-46.3); Red Blood Count 3.13 M/uL (4.20-5.40)
[2023-12-22 07:04] LABS: BUN Creatinine Ratio 28.3 (10-20); Calcium 8.5 mg/dl (8.6-10.3); Creatinine Clr Calc Pharmacy 29.4 ml/min; Potassium 4.6 mmol/L (3.5-5.1)
--- NOTE | 2023-12-22 08:23 | Hospitalist Progress Note ---
Date of Service December 22, 2023 Assessment & Plan (1) Cellulitis: (2) Acute kidney injury superimposed on chronic kidney disease: (3) Uncontrolled diabetes mellitus with hyperglycemia, with long-term current use of insulin: (4) C. difficile colitis: (5) Pressure ulcer: (6) Diabetic ulcer of right heel: (7) Anemia: (8) (HFpEF) heart failure with preserved ejection fraction: (9) History of osteomyelitis: (10) UTI (urinary tract infection): Plan # Weakness/Ambulatory dysfunction - Patient from [facility] due to need for rehab established after last admission - PT ordered during current admission due to persistent weakness - CM following for coordination of discharge to rehab facility. # Anemia - Chronic disease - Hgb, 8.3 <-- 7.8, Asymptomatic - Monitor am CBC #MDD - Patient w/ hx of depression for which she was on Amitriptyline 100 mg - Hydroxyzine for acute anxiety - Continue to monitor changes in mood and maintain adequate pain control since this is playing a big role over her mood # Cellulitis - Right medial thigh is erythematous with significant induration and eschar; s/p debridement on 12/12/23 - MRI incomplete but no abscess or OM in right thigh - Wound vac in place over wound in right thigh - Completed abx therapy - WBC, 13.6 <-- 11.8 <-- 15.0 (12/15/23) <-- 13.4 (on admission) # (R) Thigh pain - Patient with pain in her right thigh over where her wound/cellulitis is - Poorly controlled today, increased Flexeril from 5 to 10 mg, TID, PO - Will continue with PT and pain control until CM able to find inpatient rehab center. - Continue pain management w/ Oxycodone (15 mg, PO, q4hr), Flexeril (10 mg, PO, q8hr) and Acetaminophen. # Acute kidney injury superimposed on chronic kidney disease: - Cr, 2.3, above baseline (baseline Cr ~ 1.9), which may be due to poor PO fluid intake - Avoid nephrotoxic agents - Hold lisinopril - Monitor am BMP # Diabetes mellitus with hyperglycemia, with long-term current use of insulin: - Last A1c at 7.2% on 12/08/2023 (given chronic illnesses and age, this value is within goal of 7.5-8%) - Continue Lantus and SSI - No hypoglycemic episodes reported # C. difficile colitis: - Contact isolation precautions - No recurrence of diarrhea or abdominal pain - Treated w/ Vancomycin PO # Pressure ulcer: - Wound care nurse following - Daily wound care # Diabetic ulcer of right heel: - Wound culture on 07/28/2023 grew Pseudomonas - Wound culture on 01/04/2023 grew MSSA susceptible to daptomycin - Daily wound care # (HFpEF) heart failure with preserved ejection fraction: - Last echocardiogram on 03/19/2023 revealed LVH of 65-70% - Daily weights - Strict I&O monitoring - Hold Bumex in the setting of PERLITA # History of osteomyelitis: - A/P CT revealed erosive changes of L4 - L-spine MRI w/ erosion in L4 and L5 which could be consistent with degenerative changes and no obvious OM found Plan Disposition: Discharge to inpatient rehab. CM sent referrals. Pending availability. Code status: DNR/DNI Heart healthy, T2DM diet VTE PPx: Heparin 5000u SQ q12h Admission and Anticipated Discharge Date Admission Date: December 07, 2023 Supervising Physician Co-Signing Physician Notes I personally examined the patient and verified all parson points of history and exam, discussed case, and agree with decision making with Dr Peterson seen in AM similar time as yesterday and again in pain but nursing was also ac tively getting medication for pt and would inform me if pain remains uncontrolled. Vitals noted, in general she is awake and alert pleasant but somewhat tearful. HEENT normocephalic atraumatic mucous membranes moist. Breathing unlabored no accessory muscle use good effort. Skin without rashes pallor or icterus. IMPRESSION & PLAN Anemia Has been transfused 3 units throughout hospital stay Ambulatory dysfunction & deconditioning PT/OT consult appreciated CM working for options and disposition, discussed options with patient, discussed critical need for rehab, have been encouraging better participation with PT/OT while here Cellulitis of the right thigh s/p debridement Sacral wound, present on admission - s/p debridement stage 3 sacral decubitus POA continue current care, continue wound care, wound vac C. difficle colitis Continue vancomycin PERLITA, hyponatremia Still holding lisinopril and bumetanide encourage PO intake DVT prophylaxisheparin subcu Additional per resident documentation, for SNF once approved Subjective Patient is 63 yo F w/ a PMHx of morbid obesity, HFpEF, ambulatory dysfunction, CKD-stage 4, who presented to [facility] for generalized abdominal pain and r. thigh pain. Today, when entering her room, the patient was crying, secondary to her r. thigh pain (associated w/ cellulitis and recent debridement). Patient had received her last oxycodone, 10 mg, 4 hours prior. Will speak to nurse about giving oxycodone, 15 mg, q4hrs, as in chart. Patient states that besides the r. thigh pain, no other pain of note. Review of Systems Constitutional: + body aches; no fever and no chills Respiratory: no cough and no dyspnea Cardiovascular: no chest pain and no palpitations Gastrointestinal: + constipation (mild constipation (last BM 2 days ago)) Genitourinary: no dysuria and no urinary frequency Physical Exam Constitutional: WD/WN, vitals as above Respiratory: normal respiratory effort, lungs clear to auscultation Cardiovascular: RRR, no murmur, no edema Gastrointestinal (Abdomen): normal bowel sounds, soft, nontender, no hepatosplenomegaly Skin: + wound Psychiatric: A+Ox3, euthymic affect Results & Data Results & Data Vital Signs (Past 12 Hours) Vital Signs Temp Pulse Resp BP BP Pulse Ox O2 Del Method 12/22/23 07:35 Room Air 12/22/23 06:59 36.6 C 71 18 143/62 H 97 Room Air 12/21/23 22:31 37.1 C 63 18 165/79 H 96 Room Air 12/21/23 22:06 Room Air (5) Pressure ulcer Pressure injury location: sacral region (6) Diabetic ulcer of right heel Diabetes mellitus type: type 2 Non-pressure ulcer stage: with fat layer exposed Qualified Code(s): E11.621 - Type 2 diabetes mellitus with foot ulcer; L97.412 - Non-pressure chronic ulcer of right heel and midfoot with fat layer exposed (7) Anemia Anemia type: due to chronic kidney disease Chronic kidney disease stage: stage 4 (severe) Qualified Code(s): N18.4 - Chronic kidney disease, stage 4 (severe); D63.1 - Anemia in chronic kidney disease
--- NOTE | 2023-12-22 10:22 | Billing Data ---
Date of Service December 22, 2023 Coding Level of Care Code 46264 SUB INP/OBS CARE
[2023-12-22] MEDS ORDERED: CYCLOBENZAPRINE HCL 10 MG TAB PO PRN (11:04)
[2023-12-22] MEDS: CYCLOBENZAPRINE HCL 5 MG TAB PO STA (11:42)
[2023-12-22] MEDS ORDERED: CYCLOBENZAPRINE HCL 5 MG TAB PO PRN (16:58)
--- NOTE | 2023-12-23 10:18 | Hospitalist Progress Note ---
Date of Service December 23, 2023 Assessment & Plan (1) Cellulitis: (2) Acute kidney injury superimposed on chronic kidney disease: (3) Uncontrolled diabetes mellitus with hyperglycemia, with long-term current use of insulin: (4) C. difficile colitis: (5) Pressure ulcer: (6) Diabetic ulcer of right heel: (7) Anemia: (8) (HFpEF) heart failure with preserved ejection fraction: (9) History of osteomyelitis: (10) UTI (urinary tract infection): Plan # Weakness/Ambulatory dysfunction - Patient from [facility] due to need for rehab established after last admission - PT ordered during current admission due to persistent weakness - CM following for coordination of discharge to rehab facility. # Anemia - Chronic disease - Hgb, 8.2 <-- 7.8, Asymptomatic - Monitor am CBC #MDD - Patient w/ hx of depression for which she was on Amitriptyline 100 mg, increased to 150 mg, PO, daily - Hydroxyzine for acute anxiety - Continue to monitor changes in mood and maintain adequate pain control since this is playing a big role over her mood # Cellulitis - Right medial thigh is erythematous with significant induration and eschar; s/p debridement on 12/12/23 - MRI incomplete but no abscess or OM in right thigh - Wound vac in place over wound in right thigh - Completed abx therapy - WBC, 14.2 (12/22) <-- 11.8 <-- 15.0 (12/15/23) <-- 13.4 (on admission) - CRP, 22.2 (12/22) <-- 14.0 (12/07) <-- 18.0 (12/06) - procalcitonin, pending; - consider re-imaging w/ MRI of r. femur and l. femur too (pain bilateral now) # (R) Thigh pain - Patient with pain in her right thigh over where her wound/cellulitis is, c/o left thigh pain today too - Poorly controlled again today - Patient gets "loopy", disoriented w/ 10 mg Flexeril dosing - Increased Elavil (amitriptyline), 150 mg, daily, PO - Will continue with PT and pain control until CM able to find inpatient rehab center. - Continue pain management w/ Oxycodone (15 mg, PO, q4hr, severe pain), Flexeril (5 mg, PO, qhs), Acetaminophen, and Elavil # Acute kidney injury superimposed on chronic kidney disease: - Cr, 2.4, above baseline (baseline Cr ~ 1.9), which may be due to poor PO fluid intake - Avoid nephrotoxic agents - Hold lisinopril - Monitor am BMP # Diabetes mellitus with hyperglycemia, with long-term current use of insulin: - Last A1c at 7.2% on 12/08/2023 (given chronic illnesses and age, this value is within goal of 7.5-8%) - Continue Lantus and SSI - No hypoglycemic episodes reported # C. difficile colitis: - Contact isolation precautions - No recurrence of diarrhea or abdominal pain - Treated w/ Vancomycin PO # Pressure ulcer: - Wound care nurse following - Daily wound care # Diabetic ulcer of right heel: - Wound culture on 07/28/2023 grew Pseudomonas - Wound culture on 01/04/2023 grew MSSA susceptible to daptomycin - Daily wound care # (HFpEF) heart failure with preserved ejection fraction: - Last echocardiogram on 03/19/2023 revealed LVH of 65-70% - Daily weights - Strict I&O monitoring - Hold Bumex in the setting of PERLITA # History of osteomyelitis: - A/P CT revealed erosive changes of L4 - L-spine MRI w/ erosion in L4 and L5 which could be consistent with degenerative changes and no obvious OM found Plan Disposition: Discharge to inpatient rehab. CM sent referrals. Pending availability. Code status: DNR/DNI FENGI: Heart healthy, T2DM diet VTE PPx: Heparin 5000u SQ q12h Admission and Anticipated Discharge Date Admission Date: December 07, 2023 Supervising Physician Co-Signing Physician Notes I personally examined the patient and verified all parson points of history and exam, discussed case, and agree with decision making with Dr Peterson legs hurting again - notes that pain meds do help and while each morning for several days she's been tearful in AM she notes that as day progresses pain control gets better. Vitals noted, in general she is awake and alert pleasant but somewhat tearful. HEENT normocephalic atraumatic mucous membranes moist. Breathing unlabored no accessory muscle use good effort. Skin without rashes pallor or icterus. IMPRESSION & PLAN Anemia Has been transfused 3 units throughout hospital stay Ambulatory dysfunction & deconditioning PT/OT consult appreciated CM working for options and disposition, discussed options with patient, discussed critical need for rehab, have been encouraging better participation with PT/OT while here Cellulitis of the right thigh s/p debridement Sacral wound, present on admission - s/p debridement stage 3 sacral decubitus POA continue current care and wound vac - but overall worsening of pain pattern and mild (nonspecific) rise in WBC somewhat concerning - CRP also slightly higher than ~2wks ago - ?recurrent/refractory infection - w/u further, low threshold to resume abx C. difficle colitis Continue vancomycin PERLITA, hyponatremia Still holding lisinopril and bumetanide encourage PO intake DVT prophylaxisheparin subcu Additional per resident documentation, for SNF once approved, obviously once more clear if +/- any recurrence of infection in leg Subjective Patient is 63 yo F w/ a PMHx of morbid obesity, HFpEF, ambulatory dysfunction, CKD-stage 4, who presented to [facility] for generalized abdominal pain and r. thigh pain. Today, when entering her room, the patient was crying again, secondary to her r. thigh pain (associated w/ cellulitis and recent debridement). Stated that the pain is a 8/10. Patient states that besides the r. thigh pain, she also has some left thigh pain (unable to rate severity). Although patient is AAO x 4, she is not easily re-directed to answer questions besides basic orientation questions, begins to cry and forgets the original question. Review of Systems Review of Systems: reviewed, per HPI Constitutional: + body aches; no fever and no chills Respiratory: no cough and no dyspnea Cardiovascular: no chest pain and no palpitations Gastrointestinal: + constipation (mild constipation (last BM 2 days ago)) Genitourinary: no dysuria and no urinary frequency Physical Exam Constitutional: WD/WN, vitals as above Respiratory: normal respiratory effort, lungs clear to auscultation Cardiovascular: RRR, no murmur, no edema Gastrointestinal (Abdomen): normal bowel sounds, soft, nontender, no hepatosplenomegaly Skin: + wound Psychiatric: A+Ox3, euthymic affect Results & Data Results & Data Vital Signs (Past 12 Hours) Vital Signs Temp Pulse Resp BP Pulse Ox O2 Del Method 12/23/23 06:58 36.6 C 69 16 128/61 95 Room Air (5) Pressure ulcer Pressure injury location: sacral region (6) Diabetic ulcer of right heel Diabetes mellitus type: type 2 Non-pressure ulcer stage: with fat layer exposed Qualified Code(s): E11.621 - Type 2 diabetes mellitus with foot ulcer; L97.412 - Non-pressure chronic ulcer of right heel and midfoot with fat layer exposed (7) Anemia Anemia type: due to chronic kidney disease Chronic kidney disease stage: stage 4 (severe) Qualified Code(s): N18.4 - Chronic kidney disease, stage 4 (severe); D63.1 - Anemia in chronic kidney disease
[2023-12-23] MEDS ORDERED: oxyCODONE HCL IR 5 MG TAB (IMMEDIATE RELEASE) PO PRN (10:28)
[2023-12-23 10:47] LABS: Basophils # (auto) 0.06 K/uL (0.00-0.20); Basophils % (auto) 0.4 %; Eosinophils # (auto) 0.16 K/uL (0.00-0.50); Eosinophils % (auto) 1.1 %; Hemoglobin 8.2 g/dl (12.0-16.0); Immature Granulocytes # (auto) 0.45 K/uL (0.01-0.20); Immature Granulocytes % (auto) 3.1 %; Lymphocytes # (auto) 1.65 K/uL (1.20-3.40); Lymphocytes % (auto) 11.3 %; Mean Corpuscular Hemoglobin 26.8 pg (25.0-34.0); Mean Corpuscular Hgb Conc 31.5 g/dL (32.0-36.0); Mean Platelet Volume 10.2 fL (9.4-12.4); Monocytes # (auto) 1.03 K/uL (0.11-0.59); Neutrophils # (auto) 11.27 K/uL (1.40-6.50); Neutrophils % (auto) 77.1 %; Platelet Count 436 K/uL (130-400); RDW Coefficient of Variation 16.8 % (11.5-14.5); RDW Standard Deviation 51.5 fL (36.4-46.3); Red Blood Count 3.06 M/uL (4.20-5.40); White Blood Count 14.62 K/ul (4.8-10.8)
[2023-12-23 11:00] LABS: BUN Creatinine Ratio 27.6 (10-20); Calcium 8.6 mg/dl (8.6-10.3); Creatinine Clr Calc Pharmacy 27.8 ml/min; Potassium 4.7 mmol/L (3.5-5.1)
[2023-12-23] MEDS: AMITRIPTYLINE HCL 50 MG TAB PO STA (11:00)
[2023-12-23] MEDS: CYCLOBENZAPRINE HCL 5 MG TAB PO PRN (11:02)
[2023-12-23 11:48] LABS: C Reactive Protein 22.24 mg/dl (0-0.5)
[2023-12-23] MEDS ORDERED: CYCLOBENZAPRINE HCL 5 MG TAB PO PRN (14:22)
--- NOTE | 2023-12-23 14:55 | Billing Data ---
Date of Service December 23, 2023 Coding Level of Care Code 58616 SUB INP/OBS CARE
[2023-12-23 15:33] VITALS: RESP 16
[2023-12-23 20:47] VITALS: O2SAT 98
[2023-12-24 07:06] VITALS: BP 131/70; PULSE 68; TEMP 97.9
[2023-12-24 07:18] LABS: Basophils # (auto) 0.05 K/uL (0.00-0.20); Basophils % (auto) 0.4 %; Eosinophils # (auto) 0.29 K/uL (0.00-0.50); Eosinophils % (auto) 2.3 %; Hematocrit (blood only) 26.1 % (37.0-47.0); Hemoglobin 8.3 g/dl (12.0-16.0); Immature Granulocytes % (auto) 3.9 %; Lymphocytes # (auto) 2.04 K/uL (1.20-3.40); Mean Corpuscular Hemoglobin 26.7 pg (25.0-34.0); Mean Corpuscular Hgb Conc 31.8 g/dL (32.0-36.0); Mean Corpuscular Volume 83.9 fL (80.0-100.0); Mean Platelet Volume 10.3 fL (9.4-12.4); Monocytes # (auto) 1.06 K/uL (0.11-0.59); Monocytes % (auto) 8.3 %; Neutrophils # (auto) 8.83 K/uL (1.40-6.50); Neutrophils % (auto) 69.1 %; Platelet Count 434 K/uL (130-400); RDW Coefficient of Variation 16.4 % (11.5-14.5); RDW Standard Deviation 49.1 fL (36.4-46.3); Red Blood Count 3.11 M/uL (4.20-5.40); White Blood Count 12.77 K/ul (4.8-10.8)
[2023-12-24] MEDS: oxyCODONE HCL IR 5 MG TAB (IMMEDIATE RELEASE) PO PRN (07:28)
[2023-12-24 07:31] LABS: BUN Creatinine Ratio 27.2 (10-20); Calcium 8.7 mg/dl (8.6-10.3); Creatinine Clr Calc Pharmacy 26.8 ml/min; Potassium 4.7 mmol/L (3.5-5.1)
--- NOTE | 2023-12-24 08:02 | Hospitalist Progress Note ---
Date of Service December 24, 2023 Assessment & Plan (1) Cellulitis: (2) Acute kidney injury superimposed on chronic kidney disease: (3) Uncontrolled diabetes mellitus with hyperglycemia, with long-term current use of insulin: (4) C. difficile colitis: (5) Pressure ulcer: (6) Diabetic ulcer of right heel: (7) Anemia: (8) (HFpEF) heart failure with preserved ejection fraction: (9) History of osteomyelitis: (10) UTI (urinary tract infection): Plan # Weakness/Ambulatory dysfunction - Patient from [facility] due to need for rehab established after last admission - PT ordered during current admission due to persistent weakness - CM following for coordination of discharge to rehab facility. # Anemia - Chronic disease - Hgb, 8.2 <-- 7.8, Asymptomatic - Monitor am CBC #MDD - Patient w/ hx of depression for which she was on Amitriptyline 100 mg, increased to 150 mg, PO, daily - Hydroxyzine for acute anxiety - Continue to monitor changes in mood and maintain adequate pain control since this is playing a big role over her mood # Cellulitis - Right medial thigh is erythematous with significant induration and eschar; s/p debridement on 12/12/23 - MRI incomplete but no abscess or OM in right thigh - Wound vac in place over wound in right thigh - Completed abx therapy - WBC, 14.2 (12/22) <-- 11.8 <-- 15.0 (12/15/23) <-- 13.4 (on admission) - CRP, 22.2 (12/22) <-- 14.0 (12/07) <-- 18.0 (12/06) - procalcitonin, pending; - consider re-imaging w/ MRI of r. femur and l. femur too (pain bilateral now) # (R) Thigh pain - Patient with pain in her right thigh over where her wound/cellulitis is, c/o left thigh pain today too - Poorly controlled again today - Patient gets "loopy", disoriented w/ 10 mg Flexeril dosing - Increased Elavil (amitriptyline), 150 mg, daily, PO - Will continue with PT and pain control until CM able to find inpatient rehab center. - Continue pain management w/ Oxycodone (15 mg, PO, q4hr, severe pain), Flexeril (5 mg, PO, qhs), Acetaminophen, and Elavil # Acute kidney injury superimposed on chronic kidney disease: - Cr, 2.4, above baseline (baseline Cr ~ 1.9), which may be due to poor PO fluid intake - Avoid nephrotoxic agents - Hold lisinopril - Monitor am BMP # Diabetes mellitus with hyperglycemia, with long-term current use of insulin: - Last A1c at 7.2% on 12/08/2023 (given chronic illnesses and age, this value is within goal of 7.5-8%) - Continue Lantus and SSI - No hypoglycemic episodes reported # C. difficile colitis: - Contact isolation precautions - No recurrence of diarrhea or abdominal pain - Treated w/ Vancomycin PO # Pressure ulcer: - Wound care nurse following - Daily wound care # Diabetic ulcer of right heel: - Wound culture on 07/28/2023 grew Pseudomonas - Wound culture on 01/04/2023 grew MSSA susceptible to daptomycin - Daily wound care # (HFpEF) heart failure with preserved ejection fraction: - Last echocardiogram on 03/19/2023 revealed LVH of 65-70% - Daily weights - Strict I&O monitoring - Hold Bumex in the setting of PERLITA # History of osteomyelitis: - A/P CT revealed erosive changes of L4 - L-spine MRI w/ erosion in L4 and L5 which could be consistent with degenerative changes and no obvious OM found Plan Disposition: Discharge to inpatient rehab. CM sent referrals. Pending availability. Code status: DNR/DNI FENGI: Heart healthy, T2DM diet VTE PPx: Heparin 5000u SQ q12h Admission and Anticipated Discharge Date Admission Date: December 07, 2023 Subjective Patient is 63 yo F w/ a PMHx of morbid obesity, HFpEF, ambulatory dysfunction, CKD-stage 4, who presented to [facility] for generalized abdominal pain and r. thigh pain. Today, when entering her room, the patient was crying again, secondary to her r. thigh pain (associated w/ cellulitis and recent debridement). Stated that the pain is a 8/10. Patient states that besides the r. thigh pain, she also has some left thigh pain (unable to rate severity). Although patient is AAO x 4, she is not easily re-directed to answer questions besides basic orientation questions, begins to cry and forgets the original question. Results & Data Results & Data Vital Signs (Past 12 Hours) Vital Signs Temp Pulse Resp BP Pulse Ox O2 Del Method 12/24/23 07:05 36.6 C 68 16 131/70 98 Room Air 12/23/23 21:15 Room Air 12/23/23 20:40 36.9 C 61 16 125/66 98 Room Air (5) Pressure ulcer Pressure injury location: sacral region (6) Diabetic ulcer of right heel Diabetes mellitus type: type 2 Non-pressure ulcer stage: with fat layer exposed Qualified Code(s): E11.621 - Type 2 diabetes mellitus with foot ulcer; L97.412 - Non-pressure chronic ulcer of right heel and midfoot with fat layer e xposed (7) Anemia Anemia type: due to chronic kidney disease Chronic kidney disease stage: stage 4 (severe) Qualified Code(s): N18.4 - Chronic kidney disease, stage 4 (severe); D63.1 - Anemia in chronic kidney disease
[2023-12-24] MEDS: AMITRIPTYLINE HCL 100 MG TAB PO SCH (08:57)
--- NOTE | 2023-12-24 14:14 | Discharge Summary ---
Date of Service December 24, 2023 Admission HPI Per Admitting Provider Melisa is a 63-year-old female with PMH of uncontrolled T2DM, hypothyroidism, GERD, metabolic syndrome, HLD, CKD stage III, fibromyalgia, anxiety, depression, vertigo, and HFpEF. She presented on 12/06 from [facility] for generalized abdominal pain, and right lower thigh pain. She rates the pain in her right medial thigh 9/10 at present, and characterizes it as a constant "pinching" pain. She has been taking IV morphine at her rehab center for the pain, which she needs every few hours, and reports that this does help with the pain. Pain is exacerbated by movements and eating. No history of cellulitis to her knowledge. She does have a history of a right foot ulcer for which she sees wound care. She is also having pain in her lower back and tailbone due to a known pressure ulcer, however she describes this as a "itching" pain. She is having liquidy diarrhea 3 times per day, and receiving treatment for C. difficile infection. Also reports that she started having burning with urination 2 days ago. Patient took her regular morning medications today; only recent change was that her amitriptyline dosage was increased. She reports that her penicillin allergy is fairly severe; no anaphylaxis, but significant hives. Patient is hypertensive at 154/76 at time of admission. ED course: Daptomycin 275 mg IV Morphine sulfate 6 mg IV ROS: Patient endorses dizziness, lightheadedness (resolved), chest tightness (which patient attributes to morphine administration), lower transverse abdominal pain, right medial thigh pain, lower back pain, nausea, vomiting, liquidy diarrhea, and burning with urination. Patient denies fever, chills, night sweats, headache, chest pain, chest palpitations, SOB, coughing, or blood in the urine or stool. Please see Dr. Pond's attestation for any changes to treatment plan overnight. Admission Exam Per Admitting Provider General: Moderate physical distress secondary to medial thigh pain; non-toxic appearing; cooperative; SpO2 97% on RA HEENT: normocephalic, atraumatic; no scleral icterus; PERRLA; vision and hearing grossly intact Neck: supple; no lymphadenopathy; trachea midline Skin: warm, dry; medial right thigh is edematous, erythematous, with notable eschar (see photo below) CV: chest wall NTP; RRR; S1/S2 normal; no murmurs/rubs/gallops; pulses intact and symmetric at radial, DP, and PT Lungs: no acute respiratory distress; symmetrical chest wall expansion; clear breath sounds across all lung doss w/o adventitious sounds; no wheezing ABD: Soft, upper quadrants are NTP, lower quadrants are TTP bilaterally; BS present; no rebound/guarding; moderate distention secondary to body habitus; positive suprapubic tenderness MSK: no tics or fasciculations; nonpitting edema in the lower extremities bilaterally Back: Sacral ulcer with purulent drainage (see photo below) Right ankle: Healing ulcer on the sole of the right foot (see photo below; no drainage) Neuro: A&Ox3; normal mood and affect; fluent speech; no focal deficits; sensation grossly intact in the LEs b/l Principal Diagnosis RLE cellulitis Discharge Exam Constitutional WD/WN, vitals as above Respiratory no conversational dyspnea, no accessory muscle use Skin RLE medial thigh wound with wound vac in place Psychiatric tearful affect Discharge Data Allergies Allergy/AdvReac Type Severity Reaction Status Date / Time amoxicillin Allergy Intermediate hives Verified 12/07/23 21:03 dextromethorphan Allergy Intermediate Hives Verified 12/07/23 21:03 [From NyQuil] doxylamine [From NyQuil] Allergy Intermediate Hives Verified 12/07/23 21:03 gluten Allergy Intermediate Hives Verified 12/07/23 21:03 latex Allergy Intermediate RASH Verified 12/07/23 21:03 Sulfa (Sulfonamide Allergy Intermediate RASH Verified 12/07/23 21:03 Antibiotics) clarithromycin AdvReac Intermediate HEART RACES Verified 12/07/23 21:03 Umesh's multigrain bread Allergy Intermediate Hives Uncoded 12/07/23 18:28 Consultations 12/07/23 20:01 ED Decision to Admit Stat 12/07/23 20:34 Consult General Surgery Routine 12/14/23 11:04 Consult Psychiatry Routine Procedures Performed Operation Date: 12/12/23 07:00 Actual Procedures p Debridement of Right Thigh Wound, Debridement of Sacral Wound - Isiah Fermin, , FACS Ordered Studies 12/07/23 16:19 CT abd pelvis wo con Stat 12/07/23 16:28 US venous doppler LE RT Stat 12/07/23 19:52 MRI Femur [MR femur RT wo con] Stat MRI Lumbar Spine [MR lumbar spine wo con] Stat 12/11/23 11:02 US extremity non-vascular ltd Urgent Hospital Course (1) Cellulitis: (2) Acute kidney injury superimposed on chronic kidney disease: (3) Uncontrolled diabetes mellitus with hyperglycemia, with long-term current use of insulin: (4) C. difficile colitis: (5) Pressure ulcer: (6) Diabetic ulcer of right heel: (7) Anemia: (8) (HFpEF) heart failure with preserved ejection fraction: (9) History of osteomyelitis: (10) UTI (urinary tract infection): Plan 63 yo F w/ a PMHx of morbid obesity, HFpEF, ambulatory dysfunction, CKD-stage 4, who presented to [facility] for generalized abdominal pain and r. thigh pain. # Cellulitis - s/p surgical debridement and antibiotic treatment: - Right medial thigh erythematous with significant induration and eschar on admission, also elevated WBC count and CRP - s/p debridement on 12/12/23 - MRI incomplete but no abscess or osteomyelitis in right thigh - Wound vac in place over wound in right thigh - Abx treatment completed - s/p Cefazolin x5 days + Ceftriaxone x 7 days. # Pressure ulcer, wound care: # Diabetic ulcer of right heel: - Right plantar foot: clean with saline, cover with Aquacel Ag and secure with large Optifoam. Change daily and as needed for drainage >50% of dressing. - Sacrum: clean with saline and dry. Apply Aquacel Ag and large Optifoam - change daily. - Right lateral thigh: Apply Aquacel Ag and large foam, change daily and as needed. - Right medial thigh: Irrigate with normal saline. Dry wound. Skin prep and drape periphery, apply black foam wound vac. Run at 125mmHg continuous suction. Change M, W, F. If wound vac fails and cannot be reapplied, remove dressing, irrigate and gently fill with 2 whole sheets Aquacel Ag, cover with 4x4 gauze to fill remaining space and secure with abd. Change daily and as needed until wound vac can be reapplied unless otherwise directed by surgery. Will need wound and/or surgical follow up after discharge. # Weakness/Ambulatory dysfunction - Discharged back to [facility] due to need for ongoing rehab # Anemia - Chronic disease - 3 units pRBCs transfused throughout hospital stay. - AM Hgb 8.3 on day of discharge #MDD - Patient w/ hx of depression, Amitriptyline increased to 150 mg, PO, daily - Hydroxyzine prn for acute anxiety # (R) Thigh pain - Patient with pain in right thigh at site of wound/cellulitis, later began c/o left thigh pain of moderate severity - Continue increased amitriptyline dose of 150 mg, daily, PO - Continue multimodal pain management with Amitriptyline, Flexeril, Tylenol, Oxycodone prn (required intermittently for pain control during hospital stay) # Acute kidney injury superimposed on chronic kidney disease: - Cr 2.5 on AM of discharge, above baseline (baseline Cr ~ 1.9) - Avoid nephrotoxic agents - Lisinopril and Bumex held at discharge, may resume once creatinine returns to baseline. Recommend close BMP monitoring. # Diabetes mellitus with hyperglycemia, with long-term current use of insulin: - Last A1c at 7.2% on 12/08/2023 (given chronic illnesses and age, this value is within goal of 7.5-8%) - Continue Lantus and SSI - No hypoglycemic episodes reported # C. difficile colitis - treatment with vancomycin completed: # (HFpEF) heart failure with preserved ejection fraction: - Last echocardiogram on 03/19/2023 revealed LVH of 65-70% - Daily weights - Strict I&O monitoring - Hold Bumex in the setting of PERLITA Patient discharged with Jordan catheter in place, recommend removal upon arrival to [facility]. Total Time Total Time Spent Total Time Spent (In Minutes): see attending attestation Discharge Plan Discharge Items Patient Disposition: Transfer Inpatient Rehab Fac Reason For Visit: RIGHT MEDIAL THIGH CELLULITIS Discharge Diagnosis: right medial thigh cellulitis Activity: As commented below Activity Comment: activity progression as directed by PT/OT Non-emergency contact: Primary Care Provider Call non-emergency contact if: you have any medication questions, your symptoms worsen and your pain is not controlled Follow-up/Referrals: Natali Langston DO [Primary Care Provider] - Diet: Carb Consistent or DM2 and Heart Healthy Addtl Attending Provider Instructions: 63 yo F w/ a PMHx of morbid obesity, HFpEF, ambulatory dysfunction, CKD-stage 4, who presented to [facility] for generalized abdominal pain and r. thigh pain. # Cellulitis - s/p surgical debridement and antibiotic treatment: - Right medial thigh erythematous with significant induration and eschar on admission, also elevated WBC count and CRP - s/p debridement on 12/12/23 - MRI incomplete but no abscess or osteomyelitis in right thigh - Wound vac in place over wound in right thigh - Abx treatment completed - s/p Cefazolin x5 days + Ceftriaxone x 7 days. # Pressure ulcer, wound care: # Diabetic ulcer of right heel: - Right plantar foot: clean with saline, cover with Aquacel Ag and secure with large Optifoam. Change daily and as needed for drainage >50% of dressing. - Sacrum: clean with saline and dry. Apply Aquacel Ag and large Optifoam - change daily. - Right lateral thigh: Apply Aquacel Ag and large foam, change daily and as needed. - Right medial thigh: Irrigate with normal saline. Dry wound. Skin prep and drape periphery, apply black foam wound vac. Run at 125mmHg continuous suction. Change M, W, F. If wound vac fails and cannot be reapplied, remove dressing, irrigate and gently fill with 2 whole sheets Aquacel Ag, cover with 4x4 gauze to fill remaining space and secure with abd. Change daily and as needed until wound vac can be reapplied unless otherwise directed by surgery. Will need wound and/or surgical follow up after discharge. # Weakness/Ambulatory dysfunction - Discharged back to [facility] due to need for ongoing rehab # Anemia - Chronic disease - 3 units pRBCs transfused throughout hospital stay. - AM Hgb 8.3 on day of discharge #MDD - Patient w/ hx of depression, Amitriptyline increased to 150 mg, PO, daily - Hydroxyzine prn for acute anxiety # (R) Thigh pain - Patient with pain in right thigh at site of wound/cellulitis, later began c/o left thigh pain of moderate severity - Continue increased amitriptyline dose of 150 mg, daily, PO - Continue multimodal pain management with Amitriptyline, Flexeril, Tylenol, Oxycodone prn (required intermittently for pain control during hospital stay) # Acute kidney injury superimposed on chronic kidney disease: - Cr 2.5 on AM of discharge, above baseline (baseline Cr ~ 1.9) - Avoid nephrotoxic agents - Lisinopril and Bumex held at discharge, may resume once creatinine returns to baseline. Recommend close BMP monitoring. # Diabetes mellitus with hyperglycemia, with long-term current use of insulin: - Last A1c at 7.2% on 12/08/2023 (given chronic illnesses and age, this value is within goal of 7.5-8%) - Continue Lantus and SSI - No hypoglycemic episodes reported # C. difficile colitis - treatment with vancomycin completed: # (HFpEF) heart failure with preserved ejection fraction: - Last echocardiogram on 03/19/2023 revealed LVH of 65-70% - Daily weights - Strict I&O monitoring - Hold Bumex in the setting of PERLITA Patient discharged with Jordan catheter in place, recommend removal upon arrival to [facility]. Pending Studies at Discharge: No Stand-Alone Forms: My [facility] Skilled Items Patient informed of condition?: Yes DNR: Yes Discharge Level of Care: Skilled Communicable Disease: No Discharge Prognosis: Stable Lines: None Urinary Catheter: Yes (remove following transport to facility. ) Medications and DC Order Prescriptions: New amitriptyline 100 mg Tablet 150 mg PO DAILY 30 Days Qty: 45 0RF hydroxyzine HCl 10 mg Tablet 10 mg PO QID PRN (Reason: anxiety) 30 Days Qty: 120 0RF cyclobenzaprine 5 mg Tablet 5 mg PO HS PRN (Reason: muscle spasm) 14 Days Qty: 14 0RF oxycodone 5 mg tablet 5 mg PO TID PRN (Reason: pain) Qty: 10 0RF Continued (DME) FreeStyle Precision Perico Strips Strip See Rx Instructions .Route Rx Instructions: Test once daily with Freestyle Davy PRN (DME) FreeStyle Davy 14 Day Sensor Kit See Rx Instructions .Route Rx Instructions: As directed (DME) FreeStyle Davy 14 Day Stirling Misc See Rx Instructions .Route Rx Instructions: As directed (DME) pen needle, diabetic [BD Ultra-Fine Siria Pen Needle] 32 gauge x 5/32" needle See Rx Instructions .Route Rx Instructions: Use 4 per day with insulin injection (DME) lancets [OneTouch Delica Lancets] 30 gauge misc See Rx Instructions .Route Rx Instructions: Test blood sugar once daily PRN insulin aspart U-100 [Novolog U-100 Insulin aspart] 100 unit/mL solution See Rx Instructions .ROUTE .COMPLEX Rx Instructions: Sliding scale: 150 or less: 0 units 151-200: 2 units 201-250: 4 units 251-300: 6 units 301-350: 8 units 351-400: 10 units > 400: 10 units and call provider loratadine 10 mg tablet 5 mg PO DAILY PRN (Reason: Allergy Symptoms) levothyroxine [Synthroid] 175 mcg Tablet 175 mcg PO QAM fluticasone propionate [Flonase Allergy Relief] 50 mcg/actuation [place],Suspension 50 mcg INTRANASAL QAM albuterol sulfate [Proventil HFA] 90 mcg/actuation HFA aerosol inhaler 2 puff INHALATION QID PRN (Reason: wheezing ) acetaminophen 325 mg Tablet 650 mg PO Q4H PRN (Reason: pain) Qty: 30 0RF cholecalciferol (vitamin D3) [Vitamin D3] 50 mcg (2,000 unit) capsule 50 mcg PO QAM simvastatin 40 mg tablet 40 mg PO HS Levemir FlexPen 100 unit/mL (3 mL) insulin pen 0 unit SUBCUT BID Rx Instructions: pt states she takes a long acting lantus and a short acting insulin unsure of what one no recent fill history for Levemir only Lantus. diclofenac sodium [Voltaren Arthritis Pain] 1 % Gel 2 g EXT QID Qty: 100 0RF Rx Instructions: Apply to R shoulder insulin glargine [Lantus U-100 Insulin] 100 unit/mL solution 10 unit SUBCUT HS pantoprazole [Protonix] 40 mg tablet,delayed release (DR/EC) 40 mg PO DAILY Santyl 250 unit/gram ointment 250 unit TOPICAL 2XD ferrous sulfate [Iron (ferrous sulfate)] 325 mg (65 mg iron) tablet 325 mg PO DAILY cyanocobalamin (vitamin B-12) [Vitamin B-12] 1,000 mcg tablet 1,000 mcg PO DAILY Held bumetanide 1 mg tablet 2 mg PO QAM Hold Instructions: Resume on 12/31/23. Held in the setting of PERLITA - july resume when Cr returns to baseline lisinopril 20 mg tablet 20 mg PO DAILY Hold Instructions: Resume on 12/31/23. Held in the setting of PERLITA - july resume when Cr returns to baseline Discontinued amitriptyline 25 mg tablet 25 mg PO DAILY Rx Instructions: Titrating up to 100mg amitriptyline 100 mg tablet 0 mg PO HS Rx Instructions: starting 100mg dose in December per pharmacy vancomycin 125 mg capsule 125 mg PO Q6 Discharge Orders: Discharge Order (Routine); Ordered 12/24/23 Ordered By: Saravanan Calvert/Other Patient Handouts: ED Cellulitis Admission Data Admit Date/Time: 12/07/23 21:01 Attending Provider: Julita Alvarado Admit Provider: Quincy Pond Primary Care Provider: Natali Langston Other Providers: Eme[place],[facility]; [facility]; [facility],; Quincy Pond; Ekaterina Hunt; Hanh Hernández; Isiah Polk; Wilberto Carreon Jr; Fely Velásquez; Yuridia Thomas; Bryan Navarro; Candie Matos; Harjit Bucioeville Other Interventions: Discharge Summary Assessment (RN) Last Done: 12/24/23 14:18 Supervising Physician Co-Signing Physician Notes Attending Physician Supervision Note: I independently interviewed and examined the patient and verified the parson history and physical, reviewed labs and image studies and agree with findings and care plan noted above. Leg pain controlled with oxycodone - requiring less often. Comfortable. wound vac in place. jordan in place. Cellulitis of the right thigh s/p debridement Sacral wound, present on admission - s/p debridement stage 3 sacral decubitus POA -Finished abx treatment. -Still with some induration on superior and inferior edges per wound care nurse report. -Should have close follow up with wound clinic. -continue wound vac and outpatient wound care at [facility]. Anemia - s/p 3 units PRBC Urinary incontinence - jordan placed on admission. considering the wound - didn't d/c jordan on discharge. -to assess for jordan removal at SNF. C. difficle colitis - Treated with oral vancomycin PERLITA, hyponatremia -Close to baseline. Continue to hold lisinopril and bumetanide -Monitor BMP and resume meds as able. Ambulatory dysfunction & deconditioning -Rehab placement Resident Activity Tracking Resident Involvement: Resident Care Provided Care Provided: Adult Hospital Medicine
== END 2023-12-24 15:21 | DRG 570 ==
LOC: ED 14:35 → 2S 21:01 → SUATTDRO 21:01 → 2S 23:13 → 3N 12-18 23:01